=== PATIENT | male | born 1965 | race Hispanic/Latino ===

== ENCOUNTER 2019-08-23 05:44 | Emergency (ER) | payer OTHER ==
[2019-08-23 06:23] LABS: Protime INR 1.12
[2019-08-23 06:25] LABS: Absolute Lymphocytes (CBC) 1.8 K/uL (0.7-4.9); Basophils % 0.9 % (0-1.3); Hematocrit 36.1 % (39.6-49.0); Lymphocytes % 24.2 % (15.3-44.8); MPV 9.1 fL (7.6-11.3); RBC Red Blood Cell Count 3.61 M/uL (4.33-5.43)
[2019-08-23 06:57] LABS: ALT/SGPT 15 U/L (12-78); AST/SGOT 10 U/L (15-37); Albumin 3.2 g/dL (3.4-5.0); Alkaline Phosphatase 80 U/L (45-117); BUN Blood Urea Nitrogen 67 mg/dL (7-18); Bicarbonate 23 mmol/L (21-32); Bilirubin Direct 0.1 mg/dL (0-0.2); Bilirubin Total 0.4 mg/dL (0.2-1.0); Glucose Level 79 mg/dL (74-106); Magnesium 2.3 mg/dL (1.8-2.4); NT PRO-BNP 4719 pg/mL (<125); Potassium 3.9 mmol/L (3.5-5.1); Protein, Total 7.5 g/dL (6.4-8.2); Sodium Level 135 mmol/L (136-145); Troponin (Emerg Dept Use Only) < 0.02 ng/mL (0.0-0.045)
--- NOTE | 2019-08-23 08:59 | RAD REPORT ---
EXAM DESCRIPTION: RAD - Chest Single View - 08/23/2019 6:02 am CLINICAL HISTORY: Dialysis patient, shortness of breath COMPARISON: None. TECHNIQUE: AP portable chest image was obtained [id number] hours . FINDINGS: No focal lung parenchymal process. No significant failure or volume overload findings iden tifiable. Trachea is midline. Heart and vasculature are normal. No measurable pleural effusion and no pneumothorax. No acute bony abnormality seen. No acute aortic findings suspected. IMPRESSION: No acute cardiopulmonary process. No measurable failure or volume overload.
--- NOTE | 2019-08-23 09:32 | EKG ---
Test Date: 2019-08-23 Test Time: 06:02:20 Upper Cutter: AER MEASUREMENT RESULTS: Intervals: Rate: 64 MO: QRSD: 80 QT: 404 QTc: 416 [place]: P: MO: QRS: 42 T: 22 INTERPRETIVE STATEMENTS: Junctional rhythm Abnormal ECG No previous ECG available for comparison Electronically Signed On 08-23-19 09:31:42 FRONT DESK ASSOCIATE by Ty Martinez
--- NOTE | 2019-08-23 10:14 | ER ---
Nurse's Notes [facility] Name: Ben Otto Age: 54 yrs Sex: Male : 1965 Arrival Date: 08/23/2019 Time: 05:46 Bed 6 Private MD: Diagnosis: Chronic kidney disease (CKD) Presentation: 08/23 05:45 Presenting complaint: EMS states: we were called for a patient complaining not feeling rr5 well. He missed his dialysis for 1 week. 05:45 Transition of care: patient was not received from another setting of care. Onset of rr5 symptoms was August 16, 2019. Risk Assessment: Do you want to hurt yourself or someone else? Patient reports no desire to harm self or others. Initial Sepsis Screen: Does the patient meet any 2 criteria? No. Patient's initial sepsis screen is negative. Does the patient have a suspected source of infection? No. Patient's initial sepsis screen is negative. Care prior to arrival: None. 05:45 Method Of Arrival: EMS: [facility] rr5 05:45 Acuity: JEREMY 3 rr5 Historical: - Allergies: 05:52 No Known Allergies; rr5 - Home Meds: 05:52 Metoprolol Tartrate Oral [Active]; renvela [Active]; rr5 - PMHx: 05:52 CVA; Dialysis; M-W-F; chronic immune disease; rr5 - PSHx: 05:52 AV fistula left arm; rr5 - Immunization history:: Adult Immunizations up to date. - Social history:: Smoking status: Patient/guardian denies using tobacco, Patient/guardian denies using alcohol, street drugs. - Ebola Screening: : Patient negative for fever greater than or equal to 101.5 degrees Fahrenheit, and additional compatible Ebola Virus Disease symptoms Patient denies exposure to infectious person Patient denies travel to an Ebola-affected area in the 21 days before illness onset. Screenin:52 Abuse screen: Denies threats or abuse. Denies injuries from another. Nutritional rr5 screening: No deficits noted. Tuberculosis screening: No symptoms or risk factors identified. Fall Risk IV access (20 points). Total Chan Fall Scale indicates No Risk (0-24 pts). Assessment: 05:45 General: Appears in no apparent distress. comfortable, Behavior is calm, cooperative, rr5 appropriate for age, Reports not feeling well. 05:45 Pain: Denies pain. Neuro: Level of Consciousness is awake, alert, obeys commands, rr5 Oriented to person, place, time, situation, Appropriate for age Reports light headed. Cardiovascular: Capillary refill < 3 seconds Patient's skin is warm and dry. Dialysis shunt: in the left arm, with palpable thrill, with no erythema, with no edema, no bleeding noted. Respiratory: Reports shortness of breath Airway is patent Respiratory effort is even, unlabored, Respiratory pattern is regular, symmetrical. GI: No signs and/or symptoms were reported involving the gastrointestinal system. : No signs and/or symptoms were reported regarding the genitourinary system. EENT: No signs and/or symptoms were reported regarding the EENT system. Derm: Skin is intact, Skin temperature is warm. Musculoskeletal: Capillary refill < 3 seconds, paralyse left arm. with foot support left leg noted. 06:49 Reassessment: Patient appears in no apparent distress at this time. No changes from rr5 previously documented assessment. Patient is alert, oriented x 3, equal unlabored respirations, skin warm/dry/pink. 07:30 Reassessment: Patient appears in no apparent distress at this time. No changes from jl7 previously documented assessment. Patient and/or family updated on plan of care and expected duration. Pain level reassessed. Patient is alert, oriented x 3, equal unlabored respirations, skin warm/dry/pink. 08:30 Reassessment: Patient appears in no apparent distress at this time. No changes from jl7 previously documented assessment. Patient and/or family updated on plan of care and expected duration. Pain level reassessed. Patient is alert, oriented x 3, equal unlabored respirations, skin warm/dry/pink. 10:19 Reassessment: Pt will be discharged once dialysis is set up with [facility]. jl7 10:21 Reassessment: [facility] states they will get patient's dialysis ss set up within the next couple days. Patient and WILLI Andersen notified and states ok to dc home now. Pt verbalizes understanding of f/u/ dc instructions. Vital Signs: 05:45 BP 134 / 95; Pulse 67; Resp 19; Temp 97.8; Pulse Ox 99% ; Weight 99.79 kg; Height 5 ft. rr5 7 in. (170.18 cm); Pain 0/10; 06:49 BP 131 / 84; Pulse 58; Resp 17; Pulse Ox 98% ; rr5 07:00 BP 149 / 92; Pulse 55; Resp 16 S; Pulse Ox 99% on R/A; jl7 08:00 BP 123 / 82; Pulse 51; Resp 16 S; Pulse Ox 100% on R/A; jl7 09:00 BP 129 / 85; Pulse 58; Resp 16 S; Pulse Ox 100% on R/A; jl7 05:45 Body Mass Index 34.46 (99.79 kg, 170.18 cm) rr5 ED Course: 05:45 Arm band placed on. rr5 05:46 Patient arrived in ED. viridiana 05:47 Jeromy Billings, JOBY is Primary Nurse. rr5 05:48 Triage completed. rr5 05:53 Patient has correct armband on for positive identification. Placed in gown. Bed in low rr5 position. Call light in reach. Side rails up X2. Pulse ox on. NIBP on. 05:53 secured entrance monitor on. rr5 06:01 XRAY Chest (1 view) In Process Unspecified. EDMS 06:05 No provider procedures requiring assistance completed. Inserted saline lock: 20 gauge rr5 in right forearm, using aseptic technique. Blood collected. 06:09 Rich Rosado PA is PHCP. jr8 06:09 Freddy Alfred MD is Attending Physician. jr8 10:12 Gregorio Cyr MD is Referral Physician. jr8 10:33 IV discontinued, intact, bleeding controlled, No redness/swelling at site. Pressure jl7 dressing applied. Administered Medications: No medications were administered Outcome: 10:12 Discharge ordered by . jr8 10:33 Discharged to home ambulatory. jl7 10:33 Condition: stable 10:33 Discharge instructions given to patient, Instructed on discharge instructions, follow up and referral plans. Demonstrated understanding of instructions, follow-up care. 10:33 Patient left the ED. jl7 Signatures: Dispatcher [employer] EDMS Eliza Mccoy RN RN ss Roszak, Josh, PA PA jr8 Jimmy Durham RN RN jl7 Manisha Lopez RN RN ea Roque, Raymond, RN RN rr5
--- NOTE | 2019-08-23 10:15 | EDPHYS ---
Physician Documentation [facility] Name: Ben Otto Age: 54 yrs Sex: Male : 1965 Arrival Date: 08/23/2019 Time: 05:46 Bed 6 Private MD: ED Physician Freddy Alfred HPI: 08/23 06:33 This 54 yrs old Male presents to ER via EMS with complaints of Shortness Of Breath. jr8 06:33 The patient has shortness of breath at rest. Onset: The symptoms/episode began/occurred jr8 gradually, 2 day(s) ago. Duration: The symptoms are continuous. The patient's shortness of breath is aggravated by nothing, is alleviated by nothing. Associated signs and symptoms: The patient has no apparent associated signs or symptoms. Severity of symptoms: At their worst the symptoms were mild in the emergency department the symptoms are unchanged. It is unknown whether or not the patient has had similar symptoms in the past. Patient with history of ESRD. Stated that he recently moved to the area from [place]. Does not have PCP or grid maker established yet. Last dialysis over a week ago. Now starting to feel short of breath . Historical: - Allergies: 05:52 No Known Allergies; rr5 - Home Meds: 05:52 Metoprolol Tartrate Oral [Active]; renvela [Active]; rr5 - PMHx: 05:52 CVA; Dialysis; M-W-F; chronic immune disease; rr5 - PSHx: 05:52 AV fistula left arm; rr5 - Immunization history:: Adult Immunizations up to date. - Social history:: Smoking status: Patient/guardian denies using tobacco, Patient/guardian denies using alcohol, street drugs. - Ebola Screening: : Patient negative for fever greater than or equal to 101.5 degrees Fahrenheit, and additional compatible Ebola Virus Disease symptoms Patient denies exposure to infectious person Patient denies travel to an Ebola-affected area in the 21 days before illness onset. ROS: 06:33 Eyes: Negative for injury, pain, redness, and discharge, ENT: Negative for injury, jr8 pain, and discharge, Neck: Negative for injury, pain, and swelling, Cardiovascular: Negative for chest pain, palpitations, and edema, Abdomen/GI: Negative for abdominal pain, nausea, vomiting, diarrhea, and constipation, Back: Negative for injury and pain, MS/Extremity: Negative for injury and deformity, Skin: Negative for injury, rash, and discoloration, Neuro: Negative for headache, weakness, numbness, tingling, and seizure. 06:33 Respiratory: Positive for shortness of breath. Exam: 06:33 Eyes: Pupils equal round and reactive to light, extra-ocular motions intact. Lids and jr8 lashes normal. Conjunctiva and sclera are non-icteric and not injected. Cornea within normal limits. Periorbital areas with no swelling, redness, or edema. ENT: Nares patent. No nasal discharge, no septal abnormalities noted. Tympanic membranes are normal and external auditory canals are clear. Oropharynx with no redness, swelling, or masses, exudates, or evidence of obstruction, uvula midline. Mucous membranes moist. Neck: Trachea midline, no thyromegaly or masses palpated, and no cervical lymphadenopathy. Supple, full range of motion without nuchal rigidity, or vertebral point tenderness. No Meningismus. Respiratory: Lungs have equal breath sounds bilaterally, clear to auscultation and percussion. No rales, rhonchi or wheezes noted. No increased work of breathing, no retractions or nasal flaring. Abdomen/GI: Soft, non-tender, with normal bowel sounds. No distension or tympany. No guarding or rebound. No evidence of tenderness throughout. Back: No spinal tenderness. No costovertebral tenderness. Full range of motion. Skin: Warm, dry with normal turgor. Normal color with no rashes, no lesions, and no evidence of cellulitis. MS/ Extremity: Pulses equal, no cyanosis. Neurovascular intact. Full, normal range of motion. Neuro: Awake and alert, GCS 15, oriented to person, place, time, and situation. Cranial nerves II-XII grossly intact. Motor strength 5/5 in all extremities. Sensory grossly intact. Cerebellar exam normal. Normal gait. 06:33 Cardiovascular: Rate: normal, Rhythm: regular, Pulses: Pulses are 2+ in right radial artery and left radial artery. Heart sounds: normal, normal S1and S2, no S3 or S4, no murmur, no rub, no gallop, Edema: 2+ edema to level of left midcalf, left ankle, left foot, right midcalf, right ankle and right foot, JVD: is not appreciated. Vital Signs: 05:45 BP 134 / 95; Pulse 67; Resp 19; Temp 97.8; Pulse Ox 99% ; Weight 99.79 kg; Height 5 ft. rr5 7 in. (170.18 cm); Pain 0/10; 06:49 BP 131 / 84; Pulse 58; Resp 17; Pulse Ox 98% ; rr5 07:00 BP 149 / 92; Pulse 55; Resp 16 S; Pulse Ox 99% on R/A; jl7 08:00 BP 123 / 82; Pulse 51; Resp 16 S; Pulse Ox 100% on R/A; jl7 09:00 BP 129 / 85; Pulse 58; Resp 16 S; Pulse Ox 100% on R/A; jl7 05:45 Body Mass Index 34.46 (99.79 kg, 170.18 cm) rr5 MDM: 06:10 Patient medically screened. jr8 10:00 Data reviewed: vital signs, nurses notes, lab test result(s), EKG, radiologic studies, jr8 plain films, and as a result, I will discharge patient. Data interpreted: Pulse oximetry: on room air is 98 %. Interpretation: normal. Counseling: I had a detailed discussion with the patient and/or guardian regarding: the historical points, exam findings, and any diagnostic results supporting the discharge/admit diagnosis, lab results, radiology results, the need for outpatient follow up, nephrology , to return to the emergency department if symptoms worsen or persist or if there are any questions or concerns that arise at home. 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 Patient without acute findings today. Will send home now that dialysis has been arranged . 08/23 05:49 Order name: Basic Metabolic Panel; Complete Time: 07:02 tw4 08/23 05:49 Order name: CBC with Diff; Complete Time: 06:42 tw4 08/23 05:49 Order name: LFT's; Complete Time: 07:02 4 08/23 05:49 Order name: Magnesium; Complete Time: 07:02 tw4 08/23 05:49 Order name: NT PRO-BNP; Complete Time: 07:02 tw4 08/23 05:49 Order name: PT-INR; Complete Time: 06:42 tw4 08/23 05:49 Order name: Troponin (emerg Dept Use Only); Complete Time: 07:02 tw4 08/23 05:49 Order name: XRAY Chest (1 view); Complete Time: 09:28 tw4 08/23 05:49 Order name: EKG; Complete Time: 05:50 tw4 08/23 05:49 Order name: Cardiac monitoring; Complete Time: 05:53 tw4 08/23 05:49 Order name: EKG - Nurse/Tech; Complete Time: 06:06 tw4 08/23 05:49 Order name: IV Saline Lock; Complete Time: 06:06 tw4 08/23 05:49 Order name: Labs collected and sent; Complete Time: 06:06 tw4 08/23 07:56 Order name: Social Service Consult [facility] 08/23 05:49 Order name: O2 Per Protocol; Complete Time: 05:56 tw4 08/23 05:49 Order name: O2 Sat Monitoring; Complete Time: 05:56 tw4 Administered Medications: No medications were administered Disposition: 08/24 03:37 Co-signature as Attending Physician, Freddy Alfred MD I agree with the assessment and 4 plan of care. Disposition: 08/23/19 10:12 Discharged to Home. Impression: Chronic kidney disease (CKD). - Condition is Stable. - Discharge Instructions: Chronic Kidney Disease, Adult. - Medication Reconciliation Form, Thank You Letter, Antibiotic Education, Prescription Opioid Use form. - Follow up: Gregorio Cyr MD; When: 48 Hours; Reason: Recheck today's complaints, Continuance of care, Re-evaluation by your physician. - Problem is new. - Symptoms have improved. Signatures: Dispatcher [employer] [facility] Rich Rosado PA PA jr8 Jimmy Durham RN RN jl7 Freddy Alfred MD MD tw4 Jeromy Billings RN RN rr5 Corrections: (The following items were deleted from the chart) 08/23 10:33 10:12 08/23/2019 10:12 Discharged to Home. Impression: Chronic kidney disease (CKD). jl7 Condition is Stable. Forms are Medication Reconciliation Form, Thank You Letter, Antibiotic Education, Prescription Opioid Use. Follow up: Gregorio Cyr; When: 48 Hours; Reason: Recheck today's complaints, Continuance of care, Re-evaluation by your physician. Problem is new. Symptoms have improved. jr8
[2019-08-23 10:49] VITALS: TEMP 97.8
[2019-08-23 11:02] VITALS: O2SAT 100
[2019-08-23 11:04] VITALS: BP 129/85
== END 2019-08-23 10:33 | disposition home or self-care (01) ==
LOC: ER 05:44
DX: N18.6 End stage renal disease (principal); Z99.2 Dependence on renal dialysis; Z86.73 Personal history of transient ischemic attack (TIA), and cerebral infarction without residual deficits
CPT/HCPCS: 36415; 71045; 80048; 80076; 83735; 83880; 84484; 85025; 85610; 93005; 99284

== ENCOUNTER 2021-11-20 14:37 | Emergency (ER) | payer OTHER ==
--- OUTSIDE RECORDS SUMMARY | 2021-11-20 14:41 | XMS REPORT | Continuity of Care Document ---
:1965 Author Organization [facility] t Address [address] [place] [address] Dr. Mejia [address] [place] [address] Care Team Providers Name Role Phone DR Lauren MAY Attending Clinician Unavailable DR LICO Attending Clinician Unavailable DR Lauren MAY Admitting Clinician Unavailable DR LICO Admitting Clinician Unavailable Problems This patient has no known problems. Allergies, Adverse Reactions, Alerts This patient has no known allergies or adverse reactions. Medications This patient has no known medications. Procedures This patient has no known procedures. Encounters Start End Encounter Admission Attending Care Care Encounter Source Date/Time Date/Time Type Type Clinicians Facility Department ID 2019-08-19 2019-08-19 Emergency E [facility] FB [id number] FB 12:32:00 12:32:00 2019-08-11 2019-08-11 Emergency E ELIUD MAY [facility] [id number] [place] 07:59:00 09:20:00 [place] 2019-06-22 2019-06-22 Outpatient [facility] [id number] [facility] 07:20:00 07:20:00 2018-03-03 2018-03-04 Outpatient E LICO Janet TELE [id number] [place] 15:47:00 12:01:00 [facility] Results Test Description Test Time Test Comments Results Result Comments Source COMPREHENSIVE METABOLIC CHAVEZ 2019-08-11 08:55:00 Test Item Value Reference Range Interpretation Comme nts GLUCOSE (test code = 06D) 86 mg/dL 75-100 SODIUM (test code = 01A) 133 mmol/L 136-145 L POTASSIUM (test code = 01B) 3.9 mmol/L 3.6-5.1 CHLORIDE (test code = 04A) 95 mmol/L 98-107 L CO2 (test code = 02A) 23 mmol/L 22-32 ANION GAP (test code = ANG) 18.9 mmol/L BUN (test code = 05D) 59 mg/dL 7-18 H CREATININE (test code = 03E) 13.0 mg/dL 0.7-1.3 H BUN/CREA (test code = BCR) 5 12-20 L CALCIUM (test code = 09D) 8.6 mg/dL 8.3-9.5 BILI TOTAL (test code = 11A) 0.4 mg/dL 0.2-1.0 PROTEIN (test code = 07D) 8.6 g/dL 6.4-8.2 H ALBUMIN (test code = 08D) 3.6 g/dL 3.5-4.8 GLOBULIN (test code = GLB) 5.0 g/dL 1.5-3.8 H ALB/GLOB (test code = AGRR) 0.7 1.0-2.6 L ALK PHOS (test code = 35A) 89 IU/L 42-121 AST (test code = 30A) 7 IU/L <=42 ALT (test code = 31A) 15 IU/L <=78 [id number] 08:55:00 Test Item Value Reference Range Interpretation Comments MAGNESIUM (test code = 48A) 2.6 mg/dL 1.8-2.4 H PHOSPHORUS (P04)2019-08-11 08:55:00 Test Item Value Reference Range Interpretation Comments PHOSPHORUS (test code = 43D) 7.8 mg/dL 2.7-4.6 H BRAIN NATRIURETIC [id number] 08:55:00 Test Item Value Reference Range Interpretation Comments proBNP (test code = PBNP) 750 pg/mL 0-125 H TROPONIN [id number] 08:50:00 Test Item Value Reference Range Interpretation Comments TROPONIN I (test code = A84) <0.015 ng/mL 0.000-0.045 PRO TIME AND [id number] 08:43:00 Test Item Value Reference Range Interpretation Comments PT (test code = 13.9 s 9.8-13.6 H TT) INR (test code = 1.2 INR) INRH (test code = SUGGESTED INRH) THERAPEUTIC RANGE FOR INR: 2.5 - 3.5 For Patients with Prosthetic Valves or Patients with recurrent Thromboembolic Events 2.0 - 3.0 For Most Other Applications PTT (test code = 35.6 s 20.2-38.0 PTT) PTTH (test code = To monitor the PTTH) effectiveness of heparin, we offer the Anti-Xa (Heparin Assay). It can be used for either unfractionated or LMW Heparin. Order Code is ANTI-XA CT HEAD W/O [id number] 08:36:37CT brain without contrastLocation code: [id number] HISTORY: Dizziness COMPARISON: 03/03/18TECHNIQUE: Routine unenhanced axial imaging of the brain was performed. Coronal and sagittal reformatted images were obtained, as well. Automaticexposure control was utilized. Total DLP: 933 mGycm.FINDINGS: There is no acute intracranial hemorrhage or extra-axial collection.There is no hydrocephalus, midline shift, or space occupying mass. Mild deepwhite matter chronic microvascular changes are stable. Izaguirre-white matterdifferentiation is otherwise well preserved with no definite CT evidence of anacute infarct. The cranial vault and skull base are intact. The paranasal sinuses and mastoidair cells are pneumatized and well aerated. IMPRESSION: No acute intracranial abnormality or significant interval change.CBC (INCLUDES AUTOMATED DIFFERENTIAL)2019-08-11 08:29:00 Test Item Value Reference Range Interpretation Comments WBC (test code = WBC) 8.7 10\S\3/uL 4.5-11.0 RBC (test code = RBC) 4.12 10\S\6/uL 4.20-5.60 L HGB (test code = HBG) 13.6 g/dL 14.0-18.0 L HCT (test code = HCT) 40.2 % 35.0-46.0 MCV (test code = MCV) 97.6 fL 80.0-94.0 H MCH (test code = MCH) 33.0 pg 27.0-31.0 H MCHC (test code = MCHC) 33.8 g/dL 32.0-36.0 RDW (test code = RDW) 13.8 % 11.5-14.5 PLT (test code = PLT) 273 10\S\3/uL 130-400 MPV (test code = MPV) 10.0 fL 9.4-12.4 NEUTROP # (test code = NE#) 6.0 10\S\3/uL 2.0-8.0 LYMPH # (test code = LY#) 1.9 10\S\3/uL 1.2-4.0 MONOCYTE # (test code = MO#) 0.7 10\S\3/uL 0.0-1.1 EOSINOPH # (test code = EO#) 0.1 10\S\3/uL 0.0-0.7 BASOPHIL # (test code = BA#) 0.1 10\S\3/uL 0.0-0.3 IG # (test code = IG#) 0.05 10\S\3/uL 0.00-0.06 NRBC # (test code = NRBC#) 0.00 10\S\3/uL 0.00-0.01 NEUTROPH % (test code = NE%) 68.6 % 35.0-73.0 LYMPH % (test code = LY%) 21.6 % 20.0-55.0 MONO % (test code = MO%) 7.7 % 2.5-10.0 EOSINOPH % (test code = EO%) 0.9 % 0.0-5.0 BASOPHIL % (test code = BA%) 0.6 % 0.0-2.0 IG % (test code = IG%) 0.6 % 0.0-0.8 NRBC% (test code = NRBC%) 0.0 % 0.0-0.2 MANDIFF (test code = MDIFF) NO NO RBC MORPH (test code = RBCMOR) NORMAL XR CHEST 1 VIEW [id number] 08:28:57Portable AP chest, 1 viewLocation Code: [id number] HISTORY: DizzinessCOMPARISON: 03/03/18COMMENT: The lungs are clear and well inflated. The costophrenic angles are sharp. Thecardiomediastinal silhouette is unremarkable. The bones are intact.IMPRESSION: Stable chest with no acute abnormalityURINALYSIS WITH [id number] 06:31:00 Test Item Value Reference Range Interpretation Comments COLOR (test code = COLU) YELLOW YELLOW CLARITY (test code = CLA) CLEAR CLEAR GLUCOSE UR (test code = UA GLUCOSE) NEGATIVE NEGATIVE BILI UR (test code = BILE) NEGATIVE NEGATIVE KETONES UR (test code = JENN) NEGATIVE NEGATIVE SP GRAVITY (test code = SPGR) 1.011 1.005-1.030 PH UR (test code = PH) 7.0 4.5-8.0 PROTEIN UR (test code = PU) 2+ NEGATIVE A UROBIL UR (test code = UROQ) 0.2 EU/dL 0.2-1.0 NITRITE UR (test code = NITRITE) NEGATIVE NEGATIVE BLOOD UR (test code = UA BLOOD) 1+ NEGATIVE A LEUK ES UR (test code = LEUK) NEGATIVE NEGATIVE WBC UR (test code = UWBC) 0 /HPF 0-3 RBC UR (test code = URBC) 3 /HPF 0-2 H EPITH UR (test code = UEPC) FEW /LPF NONE A BACTERIA UR (test code = UBACT) NONE /HPF NONE CAST UR (test code = CAST) /LPF NONE CRYSTAL UR (test code = CRYU) / LPF NONE MUCUS UR (test code = MUC) / HPF NONE AMORPH UR (test code = HAI) / HPF NONE TRICH UR (test code = UTRICH) /HPF NONE YEAST UR (test code = UY) /HPF NONE SPERM UR (test code = USPERM) /HPF NONE BASIC METABOLIC [id number] 04:20:00 Test Item Value Reference Range Interpretation Comments GLUCOSE (test code = 06D) 98 mg/dL 75-100 SODIUM (test code = 01A) 136 mmol/L 136-145 POTASSIUM (test code = 01B) 4.3 mmol/L 3.6-5.1 CHLORIDE (test code = 04A) 104 mmol/L 98-107 CO2 (test code = 02A) 22 mmol/L 22-32 ANION GAP (test code = ANG) 14.3 mmol/L BUN (test code = 05D) 25 mg/dL 7-18 H CREATININE (test code = 03E) 5.6 mg/dL 0.7-1.3 H BUN/CREA (test code = BCR) 5 12-20 L CALCIUM (test code = 09D) 7.8 mg/dL 8.3-9.5 L CARDIAC [id number] 04:14:00 Test Item Value Reference Range Interpretation Comments TROPONIN I (test code = A84) <0.015 ng/mL 0.000-0.045 CKMB (test code = A49) <1.0 ng/mL <=3.6 CPK (test code = 32A) 44 IU/L 39-308 CBC (INCLUDES AUTOMATED DIFFERENTIAL)2018-03-04 04:04:00 Test Item Value Reference Range Interpretation Comments WBC (test code = WBC) 9.6 10\S\3/uL 4.5-11.0 RBC (test code = RBC) 3.70 10\S\6/uL 4.20-5.60 L HGB (test code = HBG) 11.8 g/dL 14.0-18.0 L HCT (test code = HCT) 37.5 % 35.0-46.0 MCV (test code = MCV) 101.4 fL 80.0-94.0 H MCH (test code = MCH) 31.9 pg 27.0-31.0 H MCHC (test code = MCHC) 31.5 g/dL 32.0-36.0 L RDW (test code = RDW) 13.0 % 11.5-14.5 PLT (test code = PLT) 213 10\S\3/uL 130-400 MPV (test code = MPV) 10.2 fL 9.4-12.4 NEUTROP # (test code = NE#) 7.4 10\S\3/uL 2.0-8.0 LYMPH # (test code = LY#) 1.1 10\S\3/uL 1.2-4.0 L MONOCYTE # (test code = MO#) 0.9 10\S\3/uL 0.0-1.1 EOSINOPH # (test code = EO#) 0.2 10\S\3/uL 0.0-0.7 BASOPHIL # (test code = BA#) 0.1 10\S\3/uL 0.0-0.3 IG # (test code = IG#) 0.02 10\S\3/uL 0.00-0.06 NRBC # (test code = NRBC#) 0.00 10\S\3/uL 0.00-0.01 NEUTROPH % (test code = NE%) 76.5 % 35.0-73.0 H LYMPH % (test code = LY%) 11.2 % 20.0-55.0 L MONO % (test code = MO%) 9.5 % 2.5-10.0 EOSINOPH % (test code = EO%) 2.0 % 0.0-5.0 BASOPHIL % (test code = BA%) 0.6 % 0.0-2.0 IG % (test code = IG%) 0.2 % 0.0-0.8 NRBC% (test code = NRBC%) 0.0 % 0.0-0.2 MANDIFF (test code = MDIFF) NO NO RBC MORPH (test code = RBCMOR) NORMAL CARDIAC [id number] 21:34:00 Test Item Value Reference Range Interpretation Comments TROPONIN I (test code = A84) <0.015 ng/mL 0.000-0.045 CKMB (test code = A49) 1.3 ng/mL <=3.6 CPK (test code = 32A) 50 IU/L 39-308 U/S CAROTID COLOR DOPPLER [id number] 21:13:04Examination: Bilateral carotid Doppler ultrasoundLocation code: [id number]: NoneTechnique:Clinical history is remarkable for dizziness, giddiness. Real-time sonographicgray scale, color Doppler, and spectral wave form analysis of the extracranialcarotid circulation is being performed.DISCUSSION:RIGHT CAROTID SYSTEM:Peak systolic velocity ICA 34.1 cm/sec, peak systolic velocity common carotidartery 74.2 cm/sec, ICA/CCA ratio 0.5Mild intimal hyperplasia of the common carotid artery is present, mini malplaque documented within the mid to distal common carotid, carotid bulb andproximal ICA. There isappropriate flow within the common carotid artery,carotid bulb, internal, and external carotid arteries. Flow is laminar and thevelocities are appropriate. Antegrade vertebral flow is documented.LEFT CAROTID SYSTEM:Peak systolic velocity ICA 46.6 cm/sec, peak systolic velocity common carotidartery 84.5 cm/sec, ICA/CCA ratio 0.6Minimal intimal hyperplasia of the common carotid artery is present withminimal distal common carotid plaque, minimal plaque localized at the carotidbulb. There is appropriateflow within the common carotid artery, carotid bulb,internal, and external carotid arteries. Flow islaminar and the velocities areappropriate. Antegrade vertebral flow is documented.Impression:1. Bilateral atherosclerotic changes are present, no hemodynamicallysignificant stenosis identified.CT HEAD W/O [id number] 14:56:12CT Brain without contrast.Location code:[id number] HISTORY: [id number]: Chest painComparison: NoneTechnique: Routine unenhanced CT brain was performed and submitted in 5mm axialimages. One or more of thefollowing dose reduction techniques were used:Automated exposure control, adjustment of the mA and or KV according to patientsize, and/or utilization of iterative reconstruction technique. DLP: 1038mGy-cm.Findings:There is no acute intracranial hemorrhage or extra-axial collection. There isno hydrocephalus, midline shift, or space occupying mass. Old moderate sized right thalamic infarct noted along with diffuse atrophy andprominent ventricular system appearing chronic in nature.There is generalizedvolume loss with compensatory enlargement of the corticalsulci and cerebral ventricles. Moderate periventricular low attenuation isconsistent with chronic small vessel ischemic changes. Izaguirre-white walt erdifferentiation is otherwise normal with no definite CT evidence of an acuteinfarct.The cranial vault and skull base are intact. The paranasal sinuses and mastoidair cells are well-aerated.IMPRESSION: Moderate chronic small vessel ischemic changes with otherwise no acuteintracranial abnormality. Oldright thalamic infarct.AMYLASE AND [id number] 14:42:00 Test Item Value Reference Range Interpretation Comments AMYLASE (test code = 10A) 68 U/L 28-100 LIPASE (test code = 60A) 130 IU/L 73-393 COMPREHENSIVE METABOLIC [id number] 14:42:00 Test Item Value Reference Range Interpretation Comments GLUCOSE (test code = 06D) 83 mg/dL 75-100 SODIUM (test code = 01A) 135 mmol/L 136-145 L POTASSIUM (test code = 01B) 3.9 mmol/L 3.6-5.1 CHLORIDE (test code = 04A) 100 mmol/L 98-107 CO2 (test code = 02A) 27 mmol/L 22-32 ANION GAP (test code = ANG) 11.9 mmol/L BUN (test code = 05D) 23 mg/dL 7-18 H CREATININE (test code = 03E) 4.9 mg/dL 0.7-1.3 H BUN/CREA (test code = BCR) 5 12-20 L CALCIUM (test code = 09D) 9.0 mg/dL 8.3-9.5 BILI TOTAL (test code = 11A) 0.3 mg/dL 0.2-1.0 PROTEIN (test code = 07D) 8.5 g/dL 6.4-8.2 H ALBUMIN (test code = 08D) 4.0 g/dL 3.5-4.8 GLOBULIN (test code = GLB) 4.5 g/dL 1.5-3.8 H ALB/GLOB (test code = AGRR) 0.9 1.0-2.6 L ALK PHOS (test code = 35A) 131 IU/L 42-121 H AST (test code = 30A) 17 IU/L <=42 ALT (test code = 31A) 23 IU/L <=78 PRO TIME AND [id number] 14:41:00 Test Item Value Reference Range Interpretation Comments PT (test code = 12.5 s 9.8-13.6 TT) INR (test code = 1.1 INR) INRH (test code = SUGGESTED INRH) THERAPEUTIC RANGE FOR INR: 2.5 - 3.5 For Patients with Prosthetic Valves or Patients with recurrent Thromboembolic Events 2.0 - 3.0 For Most Other Applications PTT (test code = 31.3 s 20.2-38.0 PTT) PTTH (test code = To monitor the PTTH) effectiveness of heparin, we offer the Anti-Xa (Heparin Assay). It can be used for either unfractionated or LMW Heparin. Order Code is ANTI-XA XR CHEST 1 VIEW [id number] 14:38:47EXAMINATION: XR CHEST 1 VIEW PORTABLE.LOCATION: D4.HISTORY: Chest pain, dizziness.COMPARISON: None.FI NDINGS:Examination is limited due to portable technique, patient body habitus and lowlung volumes.Cardiac silhouette/Mediastinal contour: Prominence of cardiac silhouette. Lungs: No focal consolidation. No large pleural effusion. Pulmonary vascularcongestion.Osseous Structures: Mild degenerative changes of thoracic spine.IMPRESSION: Limited study, pulmonary vascular congestion.DRUGS OF [id number] 14:36:00 Test Item Value Reference Range Interpretation Comments DRUG SCRN (test code URINE DRUG SCREEN = HDOA) This is an unconfirmed screening result and should not be used for non-medical purposes CANNABINOD (test code Negative NEGATIVE = 88C) AMPHETAMINE (test Negative NEGATIVE code = 84A) BENZODIAZP (test code Negative NEGATIVE = 86A) BARBITURAT (test code Negative NEGATIVE = 85A) OPIATES (test code = Negative NEGATIVE 92B) COCAINE (test code = Negative NEGATIVE 87A) PHENCYCLID (test code Negative NEGATIVE = 66A) METHADONE (test code Negative NEGATIVE = 64A) DOAH (test code = DOAH) *URINE DRUG SCREEN Cut-off values are as follows: Cannabinoids 50 ng/mL Cocaine 300 ng/mL Amphetamines 1000 ng/mL Phencyclidine 25 ng/mL Benzodiazepines 200 ng.mL Methadone 300 ng/mL Barbiturates 200 ng/mL Opiates 2000 ng/mL CBC (INCLUDES AUTOMATED DIFFERENTIAL)2018-03-03 14:29:00 Test Item Value Reference Range Interpretation Comments WBC (test code = WBC) 9.4 10\S\3/uL 4.5-11.0 RBC (test code = RBC) 4.40 10\S\6/uL 4.20-5.60 HGB (test code = HBG) 14.4 g/dL 14.0-18.0 HCT (test code = HCT) 42.7 % 35.0-46.0 MCV (test code = MCV) 97.0 fL 80.0-94.0 H MCH (test code = MCH) 32.7 pg 27.0-31.0 H MCHC (test code = MCHC) 33.7 g/dL 32.0-36.0 RDW (test code = RDW) 13.2 % 11.5-14.5 PLT (test code = PLT) 262 10\S\3/uL 130-400 MPV (test code = MPV) 10.9 fL 9.4-12.4 NEUTROP # (test code = NE#) 6.8 10\S\3/uL 2.0-8.0 LYMPH # (test code = LY#) 1.6 10\S\3/uL 1.2-4.0 MONOCYTE # (test code = MO#) 0.7 10\S\3/uL 0.0-1.1 EOSINOPH # (test code = EO#) 0.2 10\S\3/uL 0.0-0.7 BASOPHIL # (test code = BA#) 0.1 10\S\3/uL 0.0-0.3 IG # (test code = IG#) 0.04 10\S\3/uL 0.00-0.06 NRBC # (test code = NRBC#) 0.00 10\S\3/uL 0.00-0.01 NEUTROPH % (test code = NE%) 72.8 % 35.0-73.0 LYMPH % (test code = LY%) 16.9 % 20.0-55.0 L MONO % (test code = MO%) 7.3 % 2.5-10.0 EOSINOPH % (test code = EO%) 2.0 % 0.0-5.0 BASOPHIL % (test code = BA%) 0.6 % 0.0-2.0 IG % (test code = IG%) 0.4 % 0.0-0.8 NRBC% (test code = NRBC%) 0.0 % 0.0-0.2 MANDIFF (test code = MDIFF) NO NO RBC MORPH (test code = RBCMOR) NORMAL
[2021-11-20 15:20] LABS: Absolute Lymphocytes (CBC) 0.9 K/uL (0.7-4.9); Hematocrit 37.9 % (39.6-49.0); Lymphocytes % 13.8 % (15.3-44.8); MPV 7.6 fL (7.6-11.3); RBC Red Blood Cell Count 3.91 M/uL (4.33-5.43)
[2021-11-20 15:30] LABS: Protime INR 1.09
[2021-11-20 15:47] LABS: ALT/SGPT 12 U/L (12-78); AST/SGOT 8 U/L (15-37); Albumin 2.9 g/dL (3.4-5.0); Alkaline Phosphatase 73 U/L (45-117); BUN Blood Urea Nitrogen 19 mg/dL (7-18); Bicarbonate 28 mmol/L (21-32); Bilirubin Direct < 0.1 mg/dL (0-0.2); Bilirubin Total 0.3 mg/dL (0.2-1.0); Glucose Level 114 mg/dL (74-106); Magnesium 2.2 mg/dL (1.8-2.4); NT PRO-BNP 15023 pg/mL (<125); Potassium 3.6 mmol/L (3.5-5.1); Protein, Total 7.2 g/dL (6.4-8.2); Sodium Level 139 mmol/L (136-145)
[2021-11-20 15:49] LABS: T3 Free 1.76 pg/mL (2.18-3.98)
--- NOTE | 2021-11-20 15:49 | RAD REPORT ---
EXAM DESCRIPTION: RAD - Chest Single View - 11/20/2021 3:41 pm CLINICAL HISTORY: elevated heartrate;Chest pain COMPARISON: Portable July 2002 TECHNIQUE: AP portable chest image was obtained 11/20/2021 3:41 pm . FINDINGS: Lung volumes are significantly reduced compared to the prior study. This increases vascula ture and lung markings. No focal mass or consolidation. A mild edema or infiltrate could be masked in this setting. Heart and vasculature are normal. No measurable pleural effusion and no pneumothorax. No acute bony abnormality seen. No acute aortic findings suspected. IMPRESSION: Limited portable study without a focal lung parenchymal finding. Low lung volumes accentuate the vasculature and lung markings potentially masking mild edema or infil trate.
[2021-11-20] MEDS ORDERED: METOPROLOL TAR 25 MG TAB ONE (17:11)
--- NOTE | 2021-11-20 20:48 | ER ---
Nurse's Notes [facility] Name: Bne Otto Age: 56 yrs Sex: Male : 1965 Arrival Date: 11/20/2021 Time: 14:40 Bed 2 Private MD: Diagnosis: Chest pain, unspecified Presentation: 11/20 14:47 Chief complaint: EMS states: [facility] states that the pt was in dialysis. pt kd3 had about 5 mins left of dialysis before he went into a rapid heart rate. dialysis nurse stopped the dialysis. EMS arrived on the scene, pt was in SVT with hr over 200. vagal maneuvers where attempted by EMS but was not successful. when pt was transferred to the stretcher, pt suddenly converted to NSR with a hr in the 80's. pt told EMS and this nurse that he has had the feeling of his heart racing in the past and he would "just throw up and it would go away". Coronavirus screen: Vaccine status: Patient reports receiving the 2nd dose of the covid vaccine. Ebola Screen: No symptoms or risks identified at this time. Initial Sepsis Screen: Does the patient meet any 2 criteria? No. Patient's initial sepsis screen is negative. Does the patient have a suspected source of infection? No. Patient's initial sepsis screen is negative. 14:47 Method Of Arrival: EMS: [facility] kd3 14:56 Risk Assessment: Do you want to hurt yourself or someone else? Patient reports no kd3 desire to harm self or others. Onset of symptoms was November 20, 2021. 15:29 Acuity: JEREMY 2 ph Triage Assessment: 14:58 General: Appears in no apparent distress. Behavior is calm, cooperative, appropriate kd3 for age. Pain: Denies pain. Historical: - Allergies: 17:28 No Known Allergies; ph - Home Meds: 14:58 Metoprolol Tartrate Oral [Active]; renvela [Active]; kd3 - PMHx: 14:58 chronic immune disease; CVA; Dialysis; M-W-F; kd3 - Immunization history:: Adult Immunizations up to date. - Social history:: Smoking status: unknown. Screenin:01 Abuse screen: Denies threats or abuse. Denies injuries from another. Nutritional kd3 screening: No deficits noted. Tuberculosis screening: No symptoms or risk factors identified. Fall Risk IV access (20 points). Assessment: 15:30 General: Appears in no apparent distress. comfortable, Behavior is calm, cooperative, ph appropriate for age, Denies fever, feeling ill. Pain: Denies pain. Neuro: Level of Consciousness is awake, alert, obeys commands, Oriented to person, place, time, situation. Cardiovascular: Capillary refill < 3 seconds in bilateral fingers Patient's skin is warm and dry. Rhythm is sinus rhythm. Cardiovascular: Dialysis shunt: in the left bicep, with palpable thrill, with auscultated bruit, with no erythema, with no edema, no bleeding noted. Respiratory: Airway is patent Respiratory effort is even, unlabored, Respiratory pattern is regular, symmetrical, Denies shortness of breath. GI: No signs and/or symptoms were reported involving the gastrointestinal system. Derm: Skin is intact, is healthy with good turgor, Skin is pink, warm \\T\\ dry. Musculoskeletal: Circulation, motion, and sensation intact. Range of motion: intact in all extremities. 16:30 Reassessment: Patient appears in no apparent distress at this time. Patient and/or ph family updated on plan of care and expected duration. Pain level reassessed. Patient is alert, oriented x 3, equal unlabored respirations, skin warm/dry/pink. 17:00 Reassessment: Called [facility] pharmacy to try to obtain metoprolol dose, pharmacist ph states that pt has not had that medication filled in some time. Spoke w/ pt and he said that he "thinks the dose is 25 and I take it twice a day.". 19:25 Reassessment: Patient states feeling better. sm5 20:32 Reassessment: No changes from previously documented assessment. sm5 21:05 Reassessment: Patient and/or family updated on plan of care and expected duration. Pain sm5 level reassessed. Vital Signs: 14:56 Pulse 82; Resp 16; Pulse Ox 100% ; Weight 85.28 kg; Height 5 ft. 7 in. (170.18 cm); kd3 Pain 0/10; 15:15 BP 143 / 93; Pulse 82; Resp 16; Pulse Ox 100% on R/A; ph 15:45 BP 135 / 90; Pulse 81; Resp 16; Pulse Ox 100% on R/A; ph 16:15 BP 126 / 98; Pulse 73; Resp 18; Pulse Ox 100% on R/A; ph 16:42 BP 132 / 102; Pulse 70; Resp 14; Pulse Ox 100% on R/A; ph 18:32 BP 127 / 90; Pulse 63; Resp 18; Pulse Ox 100% on R/A; ph 19:45 BP 161 / 106; Pulse 68; Resp 20; Pulse Ox 100% on R/A; sm5 20:30 BP 144 / 83; Pulse 64; Resp 13; Pulse Ox 99% on R/A; sm5 14:56 Body Mass Index 29.44 (85.28 kg, 170.18 cm) kd3 ED Course: 14:40 Patient arrived in ED. ss 15:01 Arm band placed on left wrist. kd3 15:01 Patient has correct armband on for positive identification. Bed in low position. Call kd3 light in reach. Side rails up X2. 15:06 Initial lab(s) drawn, by me, sent to lab. Inserted saline lock: 22 gauge in left kj1 antecubital area, using aseptic technique. Blood collected. 15:06 EKG done, by ED staff. kj1 15:11 Manuel Nguyen PA is PHCP. cp 15:11 Bouchra Marks MD is Attending Physician. cp 15:29 Triage completed. ph 15:41 XRAY Chest (1 view) In Process Unspecified. EDMS 16:01 T3 Free Sent. ww 16:01 TSH Sent. ww 17:12 Cristal Judd, JOBY is Primary Nurse. ph 19:11 Troponin High Sensitivity Sent. ss 20:46 Han Bowens MD is Referral Physician. cp 21:06 No provider procedures requiring assistance completed. IV discontinued, intact, sm5 bleeding controlled, No redness/swelling at site. Pressure dressing applied. Administered Medications: 17:12 Drug: Metoprolol 25 mg Route: PO; ph Outcome: 20:47 Discharge ordered by . cp 21:07 Discharged to home ambulatory. 5 21:07 Condition: stable 21:07 Discharge instructions given to patient, Instructed on discharge instructions, follow up and referral plans. medication usage, Demonstrated understanding of instructions, follow-up care, medications, Prescriptions given X 1. 21:07 Patient left the ED. 5 Signatures: Dispatcher [facility] Eliza Mccoy, RN RN ss Cristal Judd, RN RN ph Manuel Nguyen PA PA cp Jackson, Kandis kj1 Machelle Simmons, RN RN kd3 Clarita Calero, RN RN sm5 Thalia Glover, RN RN ww
--- NOTE | 2021-11-20 20:49 | EDPHYS ---
Physician Documentation [facility] Name: Ben Otto Age: 56 yrs Sex: Male : 1965 Arrival Date: 11/20/2021 Time: 14:40 Bed 2 Private MD: ED Physician Bouchra Marks HPI: 11/20 15:10 This 56 yrs old Male presents to ER via EMS with complaints of Chest Pain. cp 15:10 The patient presents with a history of heart racing. cp 15:10 Context: The symptoms occur while completing dialysis this afternoon. Duration: The cp patient or guardian reports a single episode, that is now resolved. Associated signs and symptoms: Pertinent positives: chest pain, nausea. Patient reports intermittent episodes of chest pain that resolve with vomiting over past several weeks. EMS reports they were called to dialysis center and monitor showed SVT. EMS reports patient converted to NSR without any intervention. Historical: - Allergies: 17:28 No Known Allergies; ph - Home Meds: 14:58 Metoprolol Tartrate Oral [Active]; renvela [Active]; kd3 - PMHx: 14:58 chronic immune disease; CVA; Dialysis; M-W-F; kd3 - Immunization history:: Adult Immunizations up to date. - Social history:: Smoking status: unknown. ROS: 15:15 Constitutional: Negative for body aches, chills, fever, poor PO intake. cp 15:15 Eyes: Negative for injury, pain, redness, and discharge. cp 15:15 ENT: Negative for ear pain, sore throat, difficulty swallowing, difficulty handling secretions. 15:15 Cardiovascular: Positive for chest pain, palpitations. 15:15 Respiratory: Negative for cough, shortness of breath, wheezing. 15:15 Abdomen/GI: Negative for abdominal pain, nausea, vomiting, and diarrhea, constipation. 15:15 Neuro: Negative for altered mental status, dizziness, headache, syncope, weakness. 15:15 All other systems are negative. Exam: 15:00 ECG was reviewed by the Attending Physician. cp 15:20 Constitutional: The patient appears in no acute distress, alert, awake, cp non-diaphoretic, non-toxic, well developed, well nourished. 15:20 Head/Face: Normocephalic, atraumatic. cp 15:20 Eyes: Periorbital structures: appear normal, Pupils: equal, round, and reactive to light and accomodation, Extraocular movements: intact throughout, Sclera: no appreciated abnormality, Lids and lashes: appear normal, bilaterally. 15:20 ENT: External ear(s): are unremarkable, Nose: is normal, Mouth: Lips: moist, Oral mucosa: moist, Posterior pharynx: Airway: no evidence of obstruction, patent. 15:20 Neck: ROM/movement: is normal, is supple, without pain, no range of motions limitations. 15:20 Chest/axilla: Inspection: normal, Palpation: is normal, no crepitus, no tenderness. 15:20 Cardiovascular: Rate: normal, Rhythm: regular, JVD: is not appreciated. 15:20 Respiratory: the patient does not display signs of respiratory distress, Respirations: normal, no use of accessory muscles, no retractions, labored breathing, is not present, Breath sounds: bronchial sounds, that are mild, are heard diffusely, decreased breath sounds, are not appreciated. 15:20 Abdomen/GI: Inspection: abdomen appears normal, Palpation: abdomen is soft and non-tender, in all quadrants. 15:20 Back: pain, is absent, ROM is normal. 15:20 Neuro: Orientation: to person, place \T\ time. Mentation: is normal, Motor: moves all fours, strength is normal, Sensation: is normal. 19:35 ECG was reviewed by the Attending Physician. cp Vital Signs: 14:56 Pulse 82; Resp 16; Pulse Ox 100% ; Weight 85.28 kg; Height 5 ft. 7 in. (170.18 cm); kd3 Pain 0/10; 15:15 BP 143 / 93; Pulse 82; Resp 16; Pulse Ox 100% on R/A; ph 15:45 BP 135 / 90; Pulse 81; Resp 16; Pulse Ox 100% on R/A; ph 16:15 BP 126 / 98; Pulse 73; Resp 18; Pulse Ox 100% on R/A; ph 16:42 BP 132 / 102; Pulse 70; Resp 14; Pulse Ox 100% on R/A; ph 18:32 BP 127 / 90; Pulse 63; Resp 18; Pulse Ox 100% on R/A; ph 19:45 BP 161 / 106; Pulse 68; Resp 20; Pulse Ox 100% on R/A; sm5 20:30 BP 144 / 83; Pulse 64; Resp 13; Pulse Ox 99% on R/A; sm5 14:56 Body Mass Index 29.44 (85.28 kg, 170.18 cm) kd3 MDM: 15:21 Patient medically screened. cp 16:35 Physician consultation: Han Bowens MD was contacted at 16:29, regarding consult, cp patient's condition, and will see patient in office this \T\1300. Wants Metoprolol medication to be doubled and patient can be discharged to home for continued monitoring. 20:47 Data reviewed: vital signs, nurses notes, lab test result(s), EKG, radiologic studies, cp plain films. 20:47 Test interpretation: by ED physician or midlevel provider: ECG, plain radiologic cp studies. Counseling: I had a detailed discussion with the patient and/or guardian regarding: the historical points, exam findings, and any diagnostic results supporting the discharge/admit diagnosis, lab results, radiology results, the need for outpatient follow up, a clerical adviser, to return to the emergency department if symptoms worsen or persist or if there are any questions or concerns that arise at home. ED course: VSS. Initial and repeat troponin negative. Will discharge to home for continued monitoring. 11/20 15:05 Order name: Basic Metabolic Panel; Complete Time: 15:59 kj1 11/20 16:00 Interpretation: Normal except: GLUC 114; BUN 19; CA 8.2; CRE 5.34; GFR 11. cp 11/20 15:05 Order name: CBC with Diff; Complete Time: 15:59 kj1 11/20 16:00 Interpretation: Normal except: RBC 3.91; HGB 12.7; HCT 37.9; MARICRUZ% 78.5; LYM% 13.8. cp 11/20 15:05 Order name: LFT's; Complete Time: 15:59 kj1 11/20 16:16 Interpretation: Normal except: AST 8; ALB 2.9; GLOB 4.3; A/G 0.7. cp 11/20 15:05 Order name: Magnesium; Complete Time: 15:59 kj1 11/20 15:05 Order name: NT PRO-BNP; Complete Time: 15:59 kj1 11/20 15:05 Order name: PT-INR; Complete Time: 15:59 kj1 11/20 15:05 Order name: Troponin HS; Complete Time: 15:59 kj1 11/20 15:22 Order name: TSH cp 11/20 15:22 Order name: T3 Free cp 11/20 15:27 Order name: T3 Free; Complete Time: 15:59 EDMS 11/20 16:22 Interpretation: Reviewed. cp 11/20 15:27 Order name: Thyroid Stimulating Hormone; Complete Time: 15:59 EDMS 11/20 18:41 Order name: Troponin High Sensitivity cp 11/20 15:05 Order name: XRAY Chest (1 view); Complete Time: 15:59 kj1 11/20 16:00 Interpretation: Report review. cp 11/20 15:05 Order name: EKG; Complete Time: 15:06 kj11/20 15:05 Order name: Cardiac monitoring; Complete Time: 15:25 kj 11/20 15:05 Order name: EKG - Nurse/Tech; Complete Time: 15:05 [facility] 11/20 15:05 Order name: IV Saline Lock; Complete Time: 15:06 11/20 15:05 Order name: Labs collected and sent; Complete Time: 15:06 kj11/20 15:05 Order name: O2 Per Protocol; Complete Time: 15:06 [facility] 11/20 15:05 Order name: O2 Sat Monitoring; Complete Time: 17:12 11/20 16:29 Order name: Blood Pressure Recheck; Complete Time: 16:42 cp 11/20 18:41 Order name: EKG; Complete Time: 18:42 cp 11/20 18:41 Order name: EKG - Nurse/Tech; Complete Time: 20:52 cp EC:00 Rate is 83 beats/min. Rhythm is regular. CT interval is normal. QRS interval is normal. cp QT interval is normal. T waves are Inverted in lead aVR. Interpreted by me. Reviewed by me. 19:35 Rate is 66 beats/min. Rhythm is regular. CT interval is normal. QRS interval is normal. cp QT interval is normal. T waves are Inverted in lead aVR. Interpreted by me. Reviewed by me. Administered Medications: 17:12 Drug: Metoprolol 25 mg Route: PO; ph Disposition Summary: 11/20/21 20:47 Discharge Ordered Location: Home cp Problem: new cp Symptoms: have improved cp Condition: Stable cp Diagnosis - Chest pain, unspecified cp Followup: cp - With: Han Bowens MD - When: 11/22/2021 - Reason: Recheck today's complaints, recheck today's complaints at 1300 Discharge Instructions: - Discharge Summary Sheet cp - Nonspecific Chest Pain, Adult cp - Aspirin and Your Heart cp Forms: - Medication Reconciliation Form cp - Thank You Letter cp - Antibiotic Education cp - Prescription Opioid Use cp Prescriptions: - Metoprolol Tartrate 50 mg Oral Tablet - take 1 tablet by ORAL route 2 times per day take with meal; 60 tablet; Refills: cp 0, Product Selection Permitted Signatures: Dispatcher [employer] EDMS Cristal Judd RN RN ph Manuel Nguyen PA PA Rose Marie Sr kj1 Machelle Simmons RN RN kd3 Corrections: (The following items were deleted from the chart) 15:27 15:23 Thyroid Stimulating Hormone ordered. EDMS EDMS 15:27 15:23 T3 Free ordered. EDMS EDMS 20:48 20:47 Cardiac arrhythmia, unspecified cp cp
[2021-11-20 23:03] VITALS: BP 144/83; O2SAT 99
== END 2021-11-20 21:07 | disposition home or self-care (01) ==
LOC: ER 14:37
DX: R07.9 Chest pain, unspecified (principal); Z99.2 Dependence on renal dialysis; Z86.73 Personal history of transient ischemic attack (TIA), and cerebral infarction without residual deficits
CPT/HCPCS: 36415; 71045; 80048; 80076; 83735; 83880; 84443; 84481; 84484; 85025; 85610; 99285

== ENCOUNTER 2022-04-29 08:19 | Emergency (ER) | payer OTHER ==
[2022-04-29] MEDS ORDERED: DIAZEPAM 5 MG TABLET ONE (08:52)
[2022-04-29] MEDS ORDERED: KETOROLAC 30 MG/ML INJ ONE (08:52)
[2022-04-29 09:08] LABS: Urine Blood 3+ (Negative); Urine Glucose Negative (Negative); Urine Protein 2+ (Negative); Urine Specific Gravity 1.015 (1.005-1.030)
--- NOTE | 2022-04-29 09:35 | RAD REPORT ---
EXAM DESCRIPTION: CT - Stone Protocol - 04/29/2022 9:21 am CLINICAL HISTORY: Hematuria COMPARISON: None. TECHNIQUE: Computed axial tomography of the abdomen pelvis was obtained without oral or IV contrast. Lack of IV and oral contrast limits evaluation of solid organs, appendix, bowel, and vessels. Dieog l reformatted images were obtained and reviewed. All CT scans are performed using dose optimization technique as appropriate and may include automated exposure control or mA/KV adjustment according to patient size. FINDINGS: A renal calculus is not seen. An ureteral calculus is not noted. A bladder calculus is not present. Bilateral renal cortical thinning. Mild right hydronephrosis. Stranding adjacent to the rig ht renal pelvis and proximal right ureter. The visualized liver, spleen, pancreas and left adrenal gland appear grossly normal 17 millimeter left adrenal mass Diverticula stem from the colon without evidence of diverticulitis. Prostate gland mildly enlarged. Moderate bilateral inguinal hernias contain fat. The appendix appears normal IMPRESSION: Bilateral renal cortical thinning perhaps secondary to chronic renal disease. Mild right hydronephrosis with stranding adjacent to the right renal pelvis and proximal right ureter probably indicating inflammation. 17 millimeter left adrenal mass is nonspecific. It may represent an adenoma. Follow-up imaging in 3 m onths recommended to assess stability
--- NOTE | 2022-04-29 09:38 | RAD REPORT ---
EXAM DESCRIPTION: RAD - Lumbar Spine 3 Views - 04/29/2022 9:11 am CLINICAL HISTORY: Back pain FINDINGS: No fracture or dislocation is seen. Mild spondylosis involves the lumbar spine
[2022-04-29 10:50] VITALS: BP 138/81; TEMP 98.1; O2SAT 99
--- NOTE | 2022-05-01 09:22 | ER ---
Nurse's Notes [facility] Name: Ben Otto Age: 56 yrs Sex: Male : 1965 Arrival Date: 04/29/2022 Time: 08:27 Bed 18 Private MD: Diagnosis: Low back pain;UTI/ Urinary tract infection, site not specified Presentation: 04/29 08:27 Chief complaint: Patient states: I have had a pain in my back since yesterday and I bm7 feel like someone beat the shit out of me. Coronavirus screen: Vaccine status: Patient reports receiving the 2nd dose of the covid vaccine. Patient reports receiving the 1st dose of the Covid vaccine. Ebola Screen: No symptoms or risks identified at this time. Initial Sepsis Screen: Does the patient meet any 2 criteria? No. Patient's initial sepsis screen is negative. Does the patient have a suspected source of infection? No. Patient's initial sepsis screen is negative. Risk Assessment: Do you want to hurt yourself or someone else? Patient reports no desire to harm self or others. Onset of symptoms was April 28, 2022. Care prior to arrival: None. 08:27 Method Of Arrival: EMS: [facility] 08:27 Acuity: JEREMY 3 bm7 Triage Assessment: 08:39 General: Appears in no apparent distress. uncomfortable, well developed, Behavior is bm7 calm, cooperative, appropriate for age. Pain: Complains of pain in lumbar area, left low back and right low back Pain does not radiate. Pain currently is 10 out of 10 on a pain scale. EENT: No deficits noted. No signs and/or symptoms were reported regarding the EENT system. Neuro: Level of Consciousness is awake, alert, obeys commands, Oriented to person, place, time, situation, Fish Bin Tender are weak on left Gait is unsteady, Speech is normal. Cardiovascular: Dialysis shunt: in the left arm, with palpable thrill, with auscultated bruit, with no erythema, with no edema, no bleeding noted. Respiratory: No deficits noted. GI: No deficits noted. No signs and/or symptoms were reported involving the gastrointestinal system. : No deficits noted. No signs and/or symptoms were reported regarding the genitourinary system. Derm: No deficits noted. No signs and/or symptoms reported regarding the dermatologic system. Musculoskeletal: No deficits noted. No signs and/or symptoms reported regarding the musculoskeletal system. Historical: - Allergies: 08:39 SHELLFISH; bm7 - Home Meds: 08:39 Metoprolol Tartrate Oral [Active]; renvela [Active]; bm7 - PMHx: 08:39 CVA; Dialysis; M-W-F; End stage renal disease; bm7 - Immunization history:: Adult Immunizations up to date. - Social history:: Smoking status: Patient/guardian denies using tobacco products. Screenin:53 Abuse screen: Denies threats or abuse. Nutritional screening: No deficits noted. bm7 Tuberculosis screening: No symptoms or risk factors identified. Fall Risk Ambulatory Aid- Crutches/Cane/Walker (15 pts). Gait- Impaired (20 pts.). Assessment: 08:41 Reassessment: No changes from previously documented assessment. bm7 09:53 Reassessment: Patient and/or family updated on plan of care and expected duration. Pain bm7 level reassessed. Patient is alert, oriented x 3, equal unlabored respirations, skin warm/dry/pink. 10:02 Reassessment: PA at bedside to reassess. bm7 Vital Signs: 08:27 BP 160 / 100; Pulse 62; Resp 16; Temp 98.1(TE); Pulse Ox 99% on R/A; bm7 08:27 Weight 89.36 kg (R); Height 5 ft. 6 in. (167.64 cm); Pain 10/10; bm7 09:53 BP 159 / 104; Pulse 68; Resp 16; Pulse Ox 100% on R/A; Pain 0/10; bm7 10:38 BP 138 / 81; Pulse 60; Resp 16; Pulse Ox 99% on R/A; Pain 0/10; bm7 08:27 Body Mass Index 31.80 (89.36 kg, 167.64 cm) bm7 ED Course: 08:27 Patient arrived in ED. bm7 08:29 Guero Hargrove PA is PHCP. [facility] 08:29 John Fuller MD is Attending Physician. [facility] 08:29 Triage completed. bm7 08:36 Brina Roman, RN is Primary Nurse. bm7 08:39 Arm band placed on left wrist. bm7 08:53 No apparent distress. Resting quietly. Awaiting radiology results. bm7 08:53 Patient has correct armband on for positive identification. Placed in gown. Bed in low bm7 position. Call light in reach. Side rails up X 1. Client placed on continuous cardiac and pulse oximetry monitoring. NIBP monitoring applied. Warm blanket given. Head of bed lowered. 09:02 Patient moved to radiology. bm7 09:07 Assisted with urinal. bm7 09:07 Urine collected: clean catch specimen, cloudy. bm7 09:10 Lumbar Spine (3 Views) XRAY In Process Unspecified. EDMS 09:23 CT Stone Protocol In Process Unspecified. EDMS 09:26 Patient moved back from radiology. bm7 10:38 No provider procedures requiring assistance completed. Patient did not have IV access bm7 during this emergency room visit. Administered Medications: 08:48 Drug: Ketorolac 30 mg Route: IM; Site: left gluteus; bm7 09:54 Follow up: Response: Pain is decreased bm7 08:48 Drug: Valium (diazepam) 5 mg Route: PO; bm7 09:08 Follow up: Response: No adverse reaction bm7 Medication: 08:53 VIS not applicable for this client. bm7 Outcome: 10:28 Discharge ordered by . denis 10:38 Discharged to home ambulatory. bm7 10:38 Condition: improved 10:38 Discharge instructions given to patient, Instructed on discharge instructions, medication usage, Demonstrated understanding of instructions, medications, Prescriptions given X 1. 10:38 Patient left the ED. bm7 Signatures: Dispatcher [employer] EDGuero Lantigua PA PA jmm McCarthy, Brittany, RN RN bm7
--- NOTE | 2022-05-01 09:22 | EDPHYS ---
Physician Documentation [facility] Name: Ben Otto Age: 56 yrs Sex: Male : 1965 Arrival Date: 04/29/2022 Time: 08:27 Bed 18 Private MD: ED Physician John Fuller HPI: 04/29 10:25 This 56 yrs old Male presents to ER via EMS with complaints of Back pain. jmm 10:25 The patient presents with pain that is acute. Onset: The symptoms/episode jmm began/occurred gradually. The pain does not radiate. Associated signs and symptoms: Pertinent negatives: abdominal pain, fever. Is a 56-year-old male with a history of end-stage renal disease the presents emerged department with complaints of lower back pain which does not radiate. Patient does receive dialysis. Denies fever, vomiting, abdominal pain. Patient does have concerns he may have a kidney stone.. Historical: - Allergies: 08:39 SHELLFISH; bm7 - Home Meds: 08:39 Metoprolol Tartrate Oral [Active]; renvela [Active]; bm7 - PMHx: 08:39 CVA; Dialysis; M-W-F; End stage renal disease; bm7 - Immunization history:: Adult Immunizations up to date. - Social history:: Smoking status: Patient/guardian denies using tobacco products. ROS: 10:25 Constitutional: Negative for fever, chills, and weight loss, Cardiovascular: Negative jmm for chest pain, palpitations, and edema, Respiratory: Negative for shortness of breath, cough, wheezing, and pleuritic chest pain. 10:25 Back: Positive for pain with movement. 10:25 All other systems are negative. Exam: 10:25 Constitutional: This is a well developed, well nourished patient who is awake, alert, jmm and in no acute distress. Head/Face: atraumatic. Eyes: EOMI, no conjunctival erythema appreciated ENT: Moist Mucus Membranes Neck: Trachea midline, Supple Chest/axilla: Normal chest wall appearance and motion. Cardiovascular: Regular rate and rhythm. No edema appreciated Respiratory: Normal respirations, no respiratory distress appreciated Abdomen/GI: Non distended 10:25 Back: Lower lumbar pain on palpation, no CVA tenderness appreciated. 10:25 Musculoskeletal/extremity: ROM: intact in all extremities. 10:25 Neuro: Orientation: is normal, Mentation: is normal, Memory: is normal. 10:25 Psych: Behavior/mood is pleasant, cooperative. Vital Signs: 08:27 BP 160 / 100; Pulse 62; Resp 16; Temp 98.1(TE); Pulse Ox 99% on R/A; 7 08:27 Weight 89.36 kg (R); Height 5 ft. 6 in. (167.64 cm); Pain 10/10; bm7 09:53 BP 159 / 104; Pulse 68; Resp 16; Pulse Ox 100% on R/A; Pain 0/10; 7 10:38 BP 138 / 81; Pulse 60; Resp 16; Pulse Ox 99% on R/A; Pain 0/10; 7 08:27 Body Mass Index 31.80 (89.36 kg, 167.64 cm) 7 MDM: 08:30 Patient medically screened. [facility] 10:27 Data reviewed: vital signs, nurses notes. Counseling: I had a detailed discussion with [facility] the patient and/or guardian regarding: the historical points, exam findings, and any diagnostic results supporting the discharge/admit diagnosis, radiology results, the need for outpatient follow up, to return to the emergency department if symptoms worsen or persist or if there are any questions or concerns that arise at home. ED course: Labs and imaging studies were discussed with the patient along with the need for further evaluation due to the mass noted on the CT. Patient will be treated with oral antibiotics and advised follow-up PCP and otherwise given strict return precautions. Patient understood agrees plan of care.. 04/29 09:08 Order name: Urine Dipstick-Ancillary; Complete Time: 09:11 [facility] 04/29 08:30 Order name: Lumbar Spine (3 Views) XRAY; Complete Time: 09:38 [facility] 04/29 08:30 Order name: Urine Dipstick-Ancillary (obtain specimen); Complete Time: 09:07 [facility] 04/29 09:12 Order name: CT Stone Protocol; Complete Time: 09:38 [facility] Administered Medications: 08:48 Drug: Ketorolac 30 mg Route: IM; Site: left gluteus; 7 09:54 Follow up: Response: Pain is decreased 7 08:48 Drug: Valium (diazepam) 5 mg Route: PO; bm7 09:08 Follow up: Response: No adverse reaction bm7 Disposition: 16:15 Co-signature as Attending Physician, John Fuller MD. rn Disposition Summary: 04/29/22 10:28 Discharge Ordered Location: Home [facility] Condition: Stable [facility] Diagnosis - Low back pain jmm - UTI/ Urinary tract infection, site not specified [facility] Followup: [facility] - With: Private Physician - When: 2 - 3 days - Reason: Recheck today's complaints, Continuance of care, Re-evaluation by your physician Discharge Instructions: - Discharge Summary Sheet [facility] - Urinary Tract Infection, Adult [facility] Forms: - Medication Reconciliation Form [facility] - Thank You Letter [facility] - Antibiotic Education [facility] - Prescription Opioid Use [facility] Prescriptions: - Cephalexin 500 mg Oral Capsule - take 1 capsule by ORAL route every 8 hours for 10 days; 30 capsule; Refills: 0, jmm Product Selection Permitted Signatures: Dispatcher [employer] Guero Umanzor PA PA [facility] John Fuller MD MD rn McCarthy, Brittany, JOBY RN 7
== END 2022-04-29 10:38 | disposition home or self-care (01) ==
LOC: ER 08:19
DX: N39.0 Urinary tract infection, site not specified (principal); N18.6 End stage renal disease; Z99.2 Dependence on renal dialysis; Z91.013 Allergy to seafood
CPT/HCPCS: 72100; 74176; 76377; 81003; 96372; 99284

== ENCOUNTER 2022-07-24 13:04 | Emergency (ER) | payer OTHER ==
--- OUTSIDE RECORDS SUMMARY | 2022-07-24 13:26 | XMS REPORT | Continuity of Care Document ---
:[address] [facility] t Address [address] [place] [address] Dr. Perez. [address] [place] [id number] Care Team Providers Name Role Phone Pcp, Patient Does Not Have A Primary Care Physician [id number] ZULLY CHANG Attending Clinician Unavailable Zully Chang MD Attending Clinician Elidia Kat MD Attending Clinician [phone] Vtc-Lab Attending Clinician Unavailable Hvac Specialist, Transplant Attending Clinician Unavailable OWEN STONE Attending Clinician Unavailable Worker, Transplant Social Attending Clinician Unavailable Owen Stone MD Attending Clinician Renal, Transplant Class Attending Clinician Unavailable DR ELIUD MAY Attending Clinician Unavailable DR PAUL BARFIELD Attending Clinician Unavailable DR ELIUD MAY Admitting Clinician Unavailable DR PAUL BARFIELD Admitting Clinician Unavailable Payers Payer Name Policy Type Policy Number Effective Date Expiration Date S isidro LEWIS PLS [id number] 2018 00:00:00 HMO Problems Condition Condition Condition Status Onset Resolution Last Treating Co mments Source Name Details Category Date Date Treatment Clinician Date No known No known Disease Unive rs active active ity of problems problems [facility] Allergies, Adverse Reactions, Alerts Allergy Allergy Status Severity Reaction(s) Onset Inactive Treating Comm ents Source Name Type Date Date Clinician Martín Fallon Active Rash No Univer s h ty to 6-29 allergy ity of Derived adverse 00:00: to iodine [place] reaction 00 per Medical s patient Branch Social History Social Habit Start Date Stop Date Quantity Comments Source Exposure to 2022-03-17 2022-03-27 Not sure [facility] SARS-CoV-2 (event) 00:00:00 08:21:00 Medica l Branch Sex Ass[birth year] [facility] y of [place] 00:00:00 00:00:00 Medical Branch Smoking Status Start Date Stop Date Source Tobacco smoking consumption [facility] Medical unknown Branch Medications Ordered Filled Start Stop Current Ordering Indication Dosage Frequency Signature Comments Components Source Medication Medication Date Date Medication? Clinician (SIG) Name Name sevelamer Yes 800mg Take 800 Uni vers carbonate 6-29 mg by ity of (RENVELA 09:45: mouth. [place] ORAL) 34 Medical Branch metoprolol Yes Take by [facility] ers succinate 6-29 mouth. ity of 25 mg CSpX 09:45: [place] 34 Medical Branch Procedures This patient has no known procedures. Encounters Start End Encounter Admission Attending Care Care Encounter Source Date/Time Date/Time Type Type Clinicians Facility Department ID 2022-04-19 2022-04-19 Outpatient R [facility] [id number] [facility] 09:00:00 09:00:[address] o f [facility] 2022-04-10 2022-04-10 Telephone [facility] [id number] Univers 00:00:00 00:00:00 Zully Bojorquez MULTISPEC 350.1.13.10 ity of IALTY 4.2.7.2.686 [facility] [id number] [facility] [address] [facility] 2022-04-10 2022-04-10 Telephone [facility] [id number] Univers 00:00:00 00:00:00 Zully Bojorquez MULTISPEC 350.1.13.10 ity of IALTY 4.2.7.2.686 [facility] [id number] [facility] [address] [facility] 2022-04-08 2022-04-08 Committee Luciano [facility] [id number] Univers 00:00:00 00:00:00 Review Elidia alegre MULTISPEC 350.1.13.10 ity of IALTY 4.2.7.2.686 [facility] [id number] [facility] 2022-03-27 2022-03-27 [employer] Vtc-Lab [facility] [id number] Univers 13:00:00 13:15:00 Visit Zully Chang MULTISPEC 350.1.13 .10 ity of IALTY 4.2.7.2.[address] [place] [id number] [facility] 2022-03-27 2022-03-27 Outpatient R CHARLENE [facility] [id number] Univers 13:00:00 13:00:[address] [facility] 2022-03-27 2022-03-27 Hvac Specialist Hvac Specialist, Transplant [facility] 1. 2.840.114 [id number] [facility] 12:00:00 12:00:00 Visit Zully Chang MULTISPEC 350.1.13 .10 ity of IALTY 4.2.7.2.[address] [place] [id number] [facility] 2022-03-27 2022-03-27 Outpatient R OWEN STONE [facility] [id number] Univers 11:00:00 11:58:[address] [facility] 2022-03-27 2022-03-27 [place] Digger, Transplant Social [facility] 1.2.840.114 [id number] Univers 11:00:00 11:58:21 Management Zully Chang MULTISPEC 350.1 .13.10 ity of IALTY 4.2.7.2.686 [facility] [id number] [facility] 2022-03-27 2022-03-27 [facility] [id number] [facility] 10:00:00 11:58:04 Visit Zully Chang MULTISPEC 350.1.13 .10 ity of IALTY 4.2.7.2.686 [facility] [id number] [facility] YANEZ [address] [facility] 2022-03-27 2022-03-27 Nurse Renal, Transplant Class [facility] 1. 2.840.114 [id number] [facility] 08:30:00 09:15:00 [facility]13 .10 ity of IALTY 4.2.7.2.686 [facility] [id number] [facility] [address] [facility] 2019-08-19 2019-08-19 Emergency E [facility] [id number] [facility] 12:32:00 12:32:00 2019-08-11 2019-08-11 Emergency E ELIUD MAY [facility] [id number] [place] 07:59:00 09:20:00 Medica l [place] 2019-06-22 2019-06-22 [id number] 07:20:00 07:20:00 2019-05-26 2019-05-26 Outpatient MHIE MHIE [id number] [facility] 15:00:00 15:00:00 08 [facility] 2018-08-26 2018-08-26 Outpatient MHIE MHIE [id number] [facility] 11:30:00 11:30:00 07 gayle [place] 2018-08-25 2018-08-25 Outpatient MHIE MHIE [id number] [facility] 14:00:00 14:00:00 06 [place] 2018-04-14 2018-04-14 Outpatient MHIE MHIE [id number] [facility] 10:00:00 10:00:00 05 [place] 2018-03-03 2018-03-04 Outpatient E LICO [facility] TELE [id number] [place] 15:47:00 12:01:00 PAUL Medic al [place] 2018-02-25 2018-02-25 Outpatient MHIE MHIE [id number] [facility] 14:30:00 14:30:00 04 gayle [place] 2017-09-01 2017-09-01 Outpatient MHIE MHIE [id number] [facility] 09:15:00 09:15:00 03 gayle Barr 2017-05-07 2017-05-07 Outpatient MHIE MHIE [id number] [facility] 10:30:00 10:30:00 02 gayle [place] 2017-04-25 2017-04-25 Outpatient LUISITO JORGE [id number] [facility] 14:45:00 14:45:00 01 gayle [place] 2017-03-07 2017-03-07 Outpatient LUISITO JORGE [id number] [facility] 10:30:00 10:30:00 00 gayle Momo Results Test Description Test Time Test Comments Results Result Comments Source BRAIN NATRIURETIC PROTEIN 2019-08-11 08:55:00 Test Item Value Reference Range Interpretation Comme nts proBNP (test code = PBNP) 750 pg/mL 0-125 H COMPREHENSIVE METABOLIC [id number] 08:55:00 Test Item Value Reference Range Interpretation Comments GLUCOSE (test code = 06D) 86 mg/dL [...] (test code = 31A) 15 IU/L <=78 [id number] 08:55:00 Test Item Value Reference Range Interpretation Comments MAGNESIUM (test code = 48A) 2.6 mg/dL 1.8-2.4 H PHOSPHORUS (P04)2019-08-11 08:55:00 Test Item Value Reference Range Interpretation Comments PHOSPHORUS (test code = 43D) 7.8 mg/dL 2.7-4.6 H TROPONIN [id number] 08:50:00 Test Item Value Reference Range Interpretation Comments TROPONIN I (test code = A84) <0.015 ng/mL 0.000-0.045 PRO TIME AND [id number] 08:43:00 Test Item Value Reference Range Interpretation Comments PT (test code = 13.9 s 9.8-13.6 H TT) INR (test code = 1.2 INR) INRH (test code = SUGGESTED THERAPEUTIC INRH) RANGE FOR INR: 2.5 - 3.5 For [...] Order Code is ANTI-XA CT HEAD W/O [id number] 08:36:37CT brain without contrastLocation code: [id number] HISTORY: Dizziness COMPARISON: 03/03/18TECHNIQUE:Routine unenhanced axial imaging of the brain was performed. Coronal and sagittal reformatted imageswere obtained, as well. Automaticexposure control was utilized. Total DLP: 933 mGycm.FINDINGS: Thereis no acute intracranial hemorrhage or extra-axial collection.There is no hydrocephalus, midline shift, or space occupying mass. Mild deepwhite matter chronic microvascular changes are stable. Izaguirre-white matterdifferentiation is otherwise well preserved with no definite CT evidence of anacute infarct.The cranial vault and skull base are intact. [...] = RBCMOR) NORMAL XR CHEST 1 VIEW [id number] 08:28:57Portable AP chest, 1 viewLocation Code: [id number] HISTORY: DizzinessCOMPARISON: 03/03/18COMMENT: The lungs are clear and well inflated. The costophrenic angles are sharp. Thecardiomediastinal silhouette is unremarkable. The bones are intact.IMPRESSION: Stable chest with no acute abnormalityURINALYSIS WITH [id number] 06:31:00 Test Item Value Reference Range Interpretation [...] code = USPERM) /HPF NONE BASIC METABOLIC [id number] 04:20:00 Test Item Value Reference Range Interpretation [...] = 09D) 7.8 mg/dL 8.3-9.5 L CARDIAC [id number] 04:14:00 Test Item Value Reference Range Interpretation [...] MORPH (test code = RBCMOR) NORMAL CARDIAC [id number] 21:34:00 Test Item Value Reference Range Interpretation Comments TROPONIN I (test code = A84) <0.015 ng/mL 0.000-0.045 CKMB (test code = A49) 1.3 ng/mL <=3.6 CPK (test code = 32A) 50 IU/L 39-308 U/S CAROTID COLOR DOPPLER [id number] 21:13:04Examination: Bilateral carotid Doppler ultrasoundLocation code: S5Okwxfhthli: NoneTechnique:Clinicalhistory is remarkable for dizziness, giddiness. Real-time sonographicgray scale, color Doppler, and spectral wave form analysis of the extracranialcarotid circulation is being performed.DISCUSSION:RIGHT CAROTID SYSTEM:Peak systolic velocity ICA 34.1 cm/sec, peak systolic velocity common carotidartery 74.2 cm/sec, ICA/CCA ratio 0.5Mild intimal hyperplasia of the common carotid artery is present, minimalplaque documented within the mid to distal common carotid, carotid bulb andproximal ICA. There is appropriate flow within the common carotid artery,carotid bulb, internal, and external carotid arteries. Flow is laminar and thevelocities are appropriate. Antegrade vertebral flow is documented.LEFT CAROTID SYSTEM:Peak systolic velocity ICA 46.6 cm/sec, peak systolic velocity common carotidartery 84.5 cm/sec, ICA/CCA ratio 0.6Minimal intimal hyperplasia of the common carotid artery is present withminimal distal common carotid plaque, minimal plaque localized at the carotidbulb. There is appropriate flow within the common carotid artery, carotid bulb,internal, and external carotid arteries. Flow is laminar and the velocities areappropriate. Antegrade vertebral flow is documented.Impression:1. Bilateral atherosclerotic changes are present, no hemodynamicallysignificant stenosis identified.CT HEAD W/O [id number] 14:56:12CT Brain without contrast.Location code:[id number] HISTORY: [id number]: Chest painComparison: NoneTechnique: Routine unenhanced CT brain [...] with chronic small vessel ischemic changes. Izaguirre-white matte rdifferentiation is otherwise normal with no definite CT evidence of an acuteinfarct.The cranial vault and skull base are intact. The paranasal sinuses and mastoidair cells are well-aerated.IMPRESSION:Moderate chronic small vessel ischemic changes with otherwise no acuteintracranial abnormality. Old right thalamic infarct.AMYLASE AND [id number] 14:42:00 Test Item Value Reference Range Interpretation Comments AMYLASE (test code = 10A) 68 U/L 28-100 LIPASE (test code = 60A) 130 IU/L 73-393 COMPREHENSIVE METABOLIC [id number] 14:42:00 Test Item Value Reference Range Interpretation [...] 31A) 23 IU/L <=78 PRO TIME AND [id number] 14:41:00 Test Item Value Reference Range Interpretation Comments PT (test code = 12.5 s 9.8-13.6 TT) INR (test code = 1.1 INR) INRH (test code = SUGGESTED THERAPEUTIC INRH) RANGE FOR INR: 2.5 - 3.5 For [...] Code is ANTI-XA XR CHEST 1 VIEW [id number] 14:38:47EXAMINATION: XR CHEST 1 VIEW PORTABLE.LOCATION: D4.HISTORY: Chest pain, dizziness.COMPARISON: None.FI NDINGS:Examination is limited due to portable technique, patient body habitus and lowlung volumes.Cardiac silhouette/Mediastinal contour: Prominence of cardiac silhouette. Lungs: No focal consolidation. No large pleural effusion. Pulmonary vascularcongestion.Osseous Structures: Mild degenerative changes of thoracic spine.IMPRESSION: Limited study, pulmonary vascular congestion.DRUGS OF [id number] 14:36:00 Test Item Value Reference Range Interpretation [...]
[2022-07-24 13:35] LABS: Absolute Lymphocytes (CBC) 1.5 K/uL (0.7-4.9); Hematocrit 44.6 % (39.6-49.0); Lymphocytes % 23.2 % (15.3-44.8); MCV 98.2 fL (80-100); MPV 8.1 fL (7.6-11.3); RBC Red Blood Cell Count 4.54 M/uL (4.33-5.43)
[2022-07-24 13:36] LABS: Protime INR 1.11
--- NOTE | 2022-07-24 14:06 | RAD REPORT ---
EXAM DESCRIPTION: RAD - Chest Single View - 07/24/2022 1:56 pm CLINICAL HISTORY: PALPITATIONS COMPARISON: Portable 11/20/2021 TECHNIQUE: AP portable chest image was obtained 07/24/2022 1:56 pm . FINDINGS: No peripheral mass consolidation. Interstitial pattern is prominent but not clearly differ ent from prior imaging. Heart and vasculature are normal. No measurable pleural effusion and no pneum othorax. No acute bony abnormality seen. No acute aortic findings suspected. IMPRESSION: No acute cardiopulmonary process. Prominent interstitial pattern matches comparison.
[2022-07-24 15:17] LABS: Magnesium 2.3 mg/dL (1.8-2.4); Potassium 3.7 mmol/L (3.5-5.1); Troponin High Sensitivity 9.1 pg/mL (<58.9)
--- NOTE | 2022-07-24 16:19 | EDPHYS ---
Physician Documentation [facility] Name: Ben Otto Age: 57 yrs Sex: Male : 1965 Arrival Date: 07/24/2022 Time: 13:07 Bed 2 Private MD: ED Physician Jaxson Alba HPI: 07/24 13:24 This 57 yrs old Male presents to ER via EMS with complaints of elevated heart pm1 rate. 13:24 The patient presents with a history of Elevated heart rate. Context: The symptoms occur pm1 while patient was sitting in his dialysis chair eating a snickers bar. Patient did not feel the palpations and has no complaints. Onset: The symptoms/episode began/occurred today, while having dialysis treatment. Patient was able to get two hours of dialysis. Duration: The patient or guardian reports a single episode, that is now resolved, resolved on arrival per EMS, heart rate in the 80s. Patient without any rhythm strips or EKG of tachycardia from dialysis. Modifying factors: The symptoms are aggravated by nothing. The symptoms are alleviated by nothing. Associated signs and symptoms: The patient has no apparent associated signs or symptoms, Pertinent negatives: chest pain, nausea, SOB, vomiting. Severity of symptoms: in the emergency department the symptoms have resolved Pain is currently a 0 / 10. The patient has not experienced similar symptoms in the past. Historical: - Allergies: 13:11 SHELLFISH; mb8 - PMHx: 13:11 chronic immune disease; CVA; Dialysis; M-W-F; End stage renal disease; mb8 - Social history:: Smoking status: Patient denies any tobacco usage or history of. ROS: 13:24 Constitutional: Negative for fever, chills, and weight loss. pm1 13:24 Respiratory: Negative for shortness of breath, cough, wheezing, and pleuritic chest pain, Abdomen/GI: Negative for abdominal pain, nausea, vomiting, diarrhea, and constipation, Back: Negative for injury and pain, MS/Extremity: Negative for injury and deformity, Skin: Negative for injury, rash, and discoloration, Neuro: Negative for headache, weakness, numbness, tingling, and seizure. 13:24 Cardiovascular: Positive for elevated heart rate, Negative for chest pain, edema. 13:24 All other systems are negative. Exam: 13:24 Constitutional: This is a well developed, well nourished patient who is awake, alert, pm1 and in no acute distress. Head/Face: Normocephalic, atraumatic. Chest/axilla: Normal chest wall appearance and motion. Nontender with no deformity. No lesions are appreciated. 13:24 Back: No spinal tenderness. No costovertebral tenderness. Full range of motion. Skin: Warm, dry with normal turgor. Normal color with no rashes, no lesions, and no evidence of cellulitis. MS/ Extremity: Pulses equal, no cyanosis. Neurovascular intact. Full, normal range of motion. 13:24 Cardiovascular: Exam negative for acute changes, Rate: normal, Rhythm: regular, Pulses: no pulse deficits are appreciated, Heart sounds: normal, normal S1and S2. 13:24 Respiratory: Exam negative for acute changes, respiratory distress, shortness of breath, Breath sounds: are clear throughout. 13:24 Neuro: Exam negative for acute changes, Orientation: is normal, Mentation: is normal, Motor: is normal, moves all fours. Vital Signs: 13:09 BP 126 / 98; Pulse 86; Resp 18; Temp 97.8(O); Pulse Ox 100% on R/A; Weight 93 kg; mb8 Height 5 ft. 7 in. (170.18 cm); Pain 0/10; 14:18 BP 126 / 89; Pulse 79; Resp 16; Pulse Ox 100% on R/A; Pain 0/10; mb8 15:00 BP 130 / 86; Pulse 79; Resp 18; Pulse Ox 99% ; mb8 16:02 BP 119 / 78; Pulse 72; Resp 16; Pulse Ox 98% on R/A; Pain 0/10; mb8 13:09 Body Mass Index 32.11 (93.00 kg, 170.18 cm) mb8 MDM: 13:09 Patient medically screened. pm1 13:57 Data reviewed: vital signs. Data interpreted: Pulse oximetry: on room air is 100 %. pm1 Interpretation: normal. 15:54 ED course: Patient without any episodes of tachycardia or complaints of palpitations or pm1 any complaints during ER visit. 16:17 Counseling: I had a detailed discussion with the patient and/or guardian regarding: the pm1 historical points, exam findings, and any diagnostic results supporting the discharge/admit diagnosis, lab results, radiology results, the need for outpatient follow up, PCP for holter monitoring if needed, to return to the emergency department if symptoms worsen or persist or if there are any questions or concerns that arise at home. 07/24 13:18 Order name: Basic Metabolic Panel; Complete Time: 15:24 pm1 07/24 13:18 Order name: CBC with Diff; Complete Time: 13:49 pm1 07/24 13:18 Order name: Magnesium; Complete Time: 15:24 pm1 07/24 13:18 Order name: PT-INR; Complete Time: 13:49 pm1 07/24 13:18 Order name: Troponin HS; Complete Time: 15:24 pm1 07/24 13:18 Order name: XRAY Chest (1 view); Complete Time: 14:27 pm1 07/24 13:18 Order name: EKG; Complete Time: 13:18 pm1 07/24 13:18 Order name: Cardiac monitoring; Complete Time: 13:19 pm1 07/24 13:18 Order name: EKG - Nurse/Tech; Complete Time: 13:19 pm1 07/24 13:18 Order name: IV Saline Lock; Complete Time: 13:23 pm1 07/24 13:18 Order name: Labs collected and sent; Complete Time: 13:23 pm1 07/24 13:18 Order name: O2 Per Protocol; Complete Time: 13:19 pm1 07/24 13:18 Order name: O2 Sat Monitoring; Complete Time: 13:19 pm1 07/24 14:02 Order name: Labs - recollect needed: recollect green top; Complete Time: 14:16 bd EC:16 Rate is 131 beats/min. Rhythm is regular, Normal Sinus Rhythm with No ectopy. QRS [place] pm1 is Normal. OR interval is normal. QRS interval is normal. QT interval is normal. No Q waves. T waves are Normal. No ST changes noted. Clinical impression: Normal ECG. Administered Medications: No medications were administered Disposition: 14:07 Co-signature as Attending Physician, Jaxson RODRIGUEZ was immediately available onsite ms3 in the emergency department for consultation in the care of the patient. Disposition Summary: 07/24/22 16:19 Discharge Ordered Location: Home pm1 Problem: new pm1 Symptoms: have improved pm1 Condition: Stable pm1 Diagnosis - Palpitations pm1 Followup: pm1 - With: Emergency Department - When: As needed - Reason: Worsening of condition Followup: pm1 - With: Private Physician - When: 2 - 3 days - Reason: Recheck today's complaints, Continuance of care, Re-evaluation by your physician Discharge Instructions: - Discharge Summary Sheet pm1 - Palpitations pm1 Forms: - Medication Reconciliation Form pm1 - Thank You Letter pm1 - Antibiotic Education pm1 - Prescription Opioid Use pm1 Signatures: Dispatcher [employer] EDMS Mikaela Antoine Patrick, FLAKEBOARD LINE TENDER FLAKEBOARD LINE TENDER pm1 Jaxson Alba DO DO ms3 Dominic Nichole, RN RN mb8
--- NOTE | 2022-07-24 16:19 | ER ---
Nurse's Notes [facility] Name: Ben Otto Age: 57 yrs Sex: Male : 1965 Arrival Date: 07/24/2022 Time: 13:07 Bed 2 Private MD: Diagnosis: Palpitations Presentation: 07/24 13:09 Chief complaint: Patient states: he was alf through a 3.5 hour dialysis appointment mb8 today when the nurse said his HR jumped up to 160s. Patient denies any chest pain, SOB, or light-headed. Coronavirus screen: Vaccine status: Patient reports receiving the 2nd dose of the covid vaccine. Ebola Screen: Patient negative for fever greater than or equal to 101.5 degrees Fahrenheit, and additional compatible Ebola Virus Disease symptoms Patient denies exposure to infectious person. Patient denies travel to an Ebola-affected area in the 21 days before illness onset. Initial Sepsis Screen: Does the patient meet any 2 criteria? No. Patient's initial sepsis screen is negative. Initial Sepsis Screen: Does the patient have a suspected source of infection? No. Patient's initial sepsis screen is negative. Risk Assessment: Do you want to hurt yourself or someone else? Patient reports no desire to harm self or others. Onset of symptoms was July 24, 2022. 13:09 Method Of Arrival: EMS: [facility] mb8 13:09 Acuity: JEREMY 3 mb8 Triage Assessment: 13:11 General: Appears in no apparent distress. comfortable, Behavior is calm, cooperative, mb8 appropriate for age. Pain: Denies pain. Historical: - Allergies: 13:11 SHELLFISH; mb8 - PMHx: 13:11 chronic immune disease; CVA; Dialysis; M-W-F; End stage renal disease; mb8 - Social history:: Smoking status: Patient denies any tobacco usage or history of. Screenin:12 Abuse screen: Denies threats or abuse. Denies injuries from another. Nutritional mb8 screening: No deficits noted. Tuberculosis screening: No symptoms or risk factors identified. Fall Risk No fall in past 12 months (0 pts). Secondary diagnosis (15 points) No IV (0 pts). Ambulatory Aid- Crutches/Cane/Walker (15 pts). Gait- Weak (10 pts.). Mental Status- Oriented to own ability (0 pts). Total Chan Fall Scale indicates Low Risk Score (25-44 pts). Fall prevention measures have been instituted. Side Rails Up X 2 As available Patient and Family Educated on Fall Prevention Program and strategies. Assessment: 13:12 Pain: Denies pain. Neuro: No deficits noted. Cardiovascular: No deficits noted. Rhythm mb8 is sinus rhythm HR 80. Respiratory: No deficits noted. GI: No deficits noted. 14:18 Reassessment: Patient and/or family updated on plan of care and expected duration. Pain mb8 level reassessed. Patient is alert, oriented x 3, equal unlabored respirations, skin warm/dry/pink. Patient denies pain at this time. 15:11 Reassessment: Patient and/or family updated on plan of care and expected duration. Pain mb8 level reassessed. Patient is alert, oriented x 3, equal unlabored respirations, skin warm/dry/pink. 16:02 Reassessment: Patient and/or family updated on plan of care and expected duration. Pain mb8 level reassessed. Patient is alert, oriented x 3, equal unlabored respirations, skin warm/dry/pink. Patient denies pain at this time. Vital Signs: 13:09 BP 126 / 98; Pulse 86; Resp 18; Temp 97.8(O); Pulse Ox 100% on R/A; Weight 93 kg; mb8 Height 5 ft. 7 in. (170.18 cm); Pain 0/10; 14:18 BP 126 / 89; Pulse 79; Resp 16; Pulse Ox 100% on R/A; Pain 0/10; mb8 15:00 BP 130 / 86; Pulse 79; Resp 18; Pulse Ox 99% ; mb8 16:02 BP 119 / 78; Pulse 72; Resp 16; Pulse Ox 98% on R/A; Pain 0/10; mb8 13:09 Body Mass Index 32.11 (93.00 kg, 170.18 cm) mb8 Vitals: 14:17 Cardiac Rhythm Assessment Sinus rhythm. mb8 15:00 Cardiac Rhythm Assessment Sinus rhythm. mb8 16:02 Cardiac Rhythm Assessment Sinus rhythm. mb8 ED Course: 13:07 Patient arrived in ED. jd3 13:09 Dominic Nichole, JOBY is Primary Nurse. mb8 13:09 Floyd Jefferson NP is PHCP. pm1 13:09 Jaxson Alba DO is Attending Physician. pm1 13:11 Triage completed. mb8 13:12 Arm band placed on. mb8 13:13 Patient has correct armband on for positive identification. Placed in gown. Bed in low mb8 position. Call light in reach. Side rails up X2. Client placed on continuous cardiac and pulse oximetry monitoring. NIBP monitoring applied. court recording monitor on. 13:13 No provider procedures requiring assistance completed. mb8 13:20 Inserted saline lock: 20 gauge in right antecubital area, using aseptic technique. mb8 Blood collected. 13:58 XRAY Chest (1 view) In Process Unspecified. EDMS 16:30 IV discontinued, intact, bleeding controlled, No redness/swelling at site. Pressure mb8 dressing applied. Administered Medications: No medications were administered Medication: 13:12 VIS not applicable for this client. mb8 Outcome: 16:19 Discharge ordered by MD. pm1 16:35 Discharged to home ambulatory, with family. mb8 16:35 Condition: stable 16:35 Discharge instructions given to patient, family, Instructed on discharge instructions, follow up and referral plans. Demonstrated understanding of instructions, follow-up care. 16:36 Patient left the ED. mb8 Signatures: Dispatcher [employer] EDMS Floyd Jefferson NP TOOL OR DIE DRAWING CHECKER pm1 Noble Lechuga RN RN Dominic Alejandro RN RN mb8
[2022-07-24 17:14] VITALS: TEMP 97.8
[2022-07-24 17:35] VITALS: BP 119/78; O2SAT 98
--- NOTE | 2022-07-25 14:33 | EKG ---
Test Date: 2022-07-24 Test Time: 13:14:23 Tree Loader Meat: PATRICIA MEASUREMENT RESULTS: Intervals: Rate: 80 WA: 190 QRSD: 78 QT: 374 QTc: 431 [place]: P: 62 WA: 190 QRS: 82 T: 57 INTERPRETIVE STATEMENTS: Normal sinus rhythm Normal ECG Compared to ECG 11/20/2021 19:30:15 No significant changes Electronically Signed On 07-25-22 14:30:08 CDT by Charles Tracy
== END 2022-07-24 16:36 | disposition home or self-care (01) ==
LOC: ER 13:04
DX: R00.2 Palpitations (principal); N18.6 End stage renal disease; Z99.2 Dependence on renal dialysis; Z91.013 Allergy to seafood
CPT/HCPCS: 36415; 71045; 80048; 83735; 84484; 85025; 85610; 93005; 99284

== ENCOUNTER 2022-07-29 14:29 | Emergency (ER) | payer OTHER ==
--- OUTSIDE RECORDS SUMMARY | 2022-07-29 14:40 | XMS REPORT | Continuity of Care Document ---
:1965 Author Organization [facility] t Address [address] [place] [address] Dr. Mejia [address] [place] [id number] Care Team Providers Name Role Phone Pcp, Patient Does Not Have A Primary Care Physician [id number] ZULLY CHANG Attending Clinician Unavailable Zully Chang MD Attending Clinician Elidia Kat MD Attending Clinician [phone] Vtc-Lab Attending Clinician Unavailable Headhunter, Transplant Attending Clinician Unavailable OWEN STONE Attending [...] Date Expiration Date S isidro LEWIS PLS [id number] 2018 00:00:00 HMO Problems Condition Condition Condition Status Onset Resolution Last Treating Co mments Source Name Details Category Date Date Treatment Clinician Date No known No known Disease Unive rs active active ity of problems problems [facility] Allergies, Adverse Reactions, Alerts Allergy Allergy Status Severity Reaction(s) Onset Inactive Treating Comm ents Source Name Type Date Date Clinician Shellfiharrison Propensi Active Rash No Univer s h ty to 6-29 allergy ity of Derived adverse 00:00: to iodine [place] reaction 00 per Medical s patient Branch Social History Social Habit Start Date Stop Date Quantity Comments Source Exposure to 2022-03-17 2022-03-27 Not sure [facility] SARS-CoV-2 (event) 00:00:00 08:21:00 Medica l Branch Sex Ass[birth year] At [birth year] [facility] [place] 00:[facility] 00:00:00 Medical Branch Smoking Status Start Date Stop Date Source Tobacco smoking consumption [facility] Medical unknown Branch Medications Ordered Filled Start Stop Current Ordering Indication Dosage Frequency Signature Comments Components Source Medication Medication Date Date Medication? Clinician (SIG) Name Name sevelamer Yes 800mg Take 800 Uni vers carbonate 6-29 mg by ity of (RENVELA 09:45: mouth. [place] ORAL) 34 Medical Branch metoprolol Yes Take by Univ ers succinate 6-29 mouth. ity of 25 mg CSpX 09:45: [place] 34 Medical Branch Procedures This patient has no known procedures. Encounters Start End Encounter Admission Attending Care Care Encounter Source Date/Time Date/Time Type Type Clinicians Facility Department ID 2022-04-19 2022-04-19 Outpatient R [facility] [id number] Univers 09:00:00 09:00:00 ZULLY ity o f [facility] 2022-04-10 2022-04-10 [facility] [id number] Univers 00:00:00 00:00:00 Zully Bojorquez MULTISPEC 350.1.13.10 ity of IALTY 4.2.7.2.686 [facility] [id number] [facility] [address] [facility] 2022-04-10 2022-04-10 Telephone [facility] [id number] Univers 00:00:00 00:00:00 Zully Bojorquez MULTISPEC 350.1.13.10 ity of IALTY 4.2.7.2.686 [facility] [id number] [facility] [address] [facility] 2022-04-08 2022-04-08 Committee Luciano [facility] [id number] Univers 00:00:00 00:00:00 Review Elidia alegre MULTISPEC 350.1.13.10 ity of IALTY 4.2.7.2.686 [facility] [id number] [address] [facility] 2022-03-27 2022-03-27 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 2.840.114 [id number] 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, Transplant Social [facility] 1.2.840.114 [id number] Univers 11:00:00 11:58:21 Management Zully Chang MULTISPEC 350.1 .13.10 ity of IALTY 4.2.7.2.686 [facility] [id number] [address] [facility] 2022-03-27 2022-03-27 Office Owen Stone [facility] 1.2.840.114 [id number] Univers 10:00:00 11:58:04 Visit Zully Chang MULTISPEC 350.1.13 .10 ity of IALTY 4.2.7.2.686 [facility] [id number] [facility] [address] [facility] 2022-03-27 2022-03-27 Nurse Renal, Transplant Class [facility] 1. 2.840.114 [id number] [facility] 08:30:00 09:15:00 Visit Zully Chang MULTISPEC 350.1.13 .10 ity of IALTY 4.2.7.2.686 [facility] [id number] [facility] [address] [facility] 2019-08-19 2019-08-19 Emergency E [facility] [id number] [facility] 12:32:00 12:32:00 2019-08-11 2019-08-11 Emergency E [facility]UD [facility] [id number] [facility] 07:59:00 09:20:00 [facility] 2019-06-22 2019-06-22 [id number] 07:20:00 07:20:00 2019-05-26 2019-05-26 Outpatient MHIE MHIE [id number] [facility] 15:00:00 15:00:00 08 [facility] 2019-05-26 2019-05-26 Outpatient MHIE MHIE [id number] 15:00:00 15:00:00 08 [facility] 2018-08-26 2018-08-26 Outpatient MHIE MHIE [id number] 11:30:00 11:30:00 07 [facility] 2018-08-26 2018-08-26 Outpatient MHIE MHIE [id number] 11:30:00 11:30:00 07 gayle Campobello 2018-08-25 2018-08-25 Outpatient MHIE MHIE [id number] 14:00:00 14:00:00 06 [facility] 2018-08-25 2018-08-25 Outpatient MHIE MHIE [id number] 14:00:00 14:00:00 06 gayle GrossmanCampobello 2018-04-14 2018-04-14 Outpatient MHIE MHIE [id number] 10:00:00 10:00:00 05 gayle [place] 2018-04-14 2018-04-14 Outpatient MHIE MHIE [id number] 10:00:00 10:00:00 05 l Momo 2018-03-03 2018-03-04 Outpatient Elizabeth BARFIELD [facility] TELE [id number] [place] 15:47:00 12:01:00 PAULEl [facility] 2018-02-25 2018-02-25 Outpatient MHIE MHIE [id number] [facility] 14:30:00 14:30:00 04 l Camp[place] 2018-02-25 2018-02-25 Outpatient MHIE MHIE [id number] 14:30:00 14:30:00 04 l Momo 2017-09-01 2017-09-01 Outpatient MHIE MHIE [id number] 09:15:00 09:15:00 03 l Momo 2017-09-01 2017-09-01 Outpatient MHIE MHIE [id number] 09:15:00 09:15:00 03 gayle Barr 2017-05-07 2017-05-07 Outpatient MHIE MHIE [id number] 10:30:00 10:30:00 02 l Momo 2017-05-07 2017-05-07 Outpatient MHIE MHIE [id number] 10:30:00 10:30:00 02 l Momo 2017-04-25 2017-04-25 Outpatient MHIE MHIE [id number] 14:45:00 14:45:00 01 l Momo 2017-04-25 2017-04-25 Outpatient MHIE MHIE [id number] 14:45:00 14:45:00 01 l Momo 2017-03-07 2017-03-07 Outpatient MHIE MHIE [id number] 10:30:00 10:30:00 00 l [place] 2017-03-07 2017-03-07 Outpatient MHIE MHIE [id number] 10:30:00 10:30:00 00 gayle Barr Results Test Description Test Time Test Comments Results Result Comments Source BRAIN NATRIURETIC PROTEIN 2019-08-11 08:55:00 Test Item Value Reference Range Interpretation Comme nts proBNP (test code = PBNP) 750 pg/mL 0-125 H COMPREHENSIVE METABOLIC [id number] 08:55:00 Test Item Value Reference Range Interpretation [...] (test code = 31A) 15 IU/L <=78 [id number] 08:55:00 Test Item Value Reference Range Interpretation Comments MAGNESIUM (test code = 48A) 2.6 mg/dL 1.8-2.4 H PHOSPHORUS (P04)2019-08-11 08:55:00 Test Item Value Reference Range Interpretation Comments PHOSPHORUS (test code = 43D) 7.8 mg/dL 2.7-4.6 H TROPONIN [id number] 08:50:00 Test Item Value Reference Range Interpretation Comments TROPONIN I (test code = A84) <0.015 ng/mL 0.000-0.045 PRO TIME AND [id number] 08:43:00 Test Item Value Reference Range Interpretation [...] Order Code is ANTI-XA CT HEAD W/O [id number] 08:36:37CT brain without contrastLocation code: [id number] HISTORY: Dizziness COMPARISON: 03/03/18TECHNIQUE:Routine unenhanced axial imaging [...] = RBCMOR) NORMAL XR CHEST 1 VIEW [id number] 08:28:57Portable AP chest, 1 viewLocation Code: [id number] HISTORY: DizzinessCOMPARISON: 03/03/18COMMENT: The lungs are clear and well inflated. The costophrenic angles are sharp. Thecardiomediastinal silhouette is unremarkable. The bones are intact.IMPRESSION: Stable chest with no acute abnormalityURINALYSIS WITH [id number] 06:31:00 Test Item Value Reference Range Interpretation [...] code = USPERM) /HPF NONE BASIC METABOLIC [id number] 04:20:00 Test Item Value Reference Range Interpretation [...] = 09D) 7.8 mg/dL 8.3-9.5 L CARDIAC [id number] 04:14:00 Test Item Value Reference Range Interpretation [...] MORPH (test code = RBCMOR) NORMAL CARDIAC [id number] 21:34:00 Test Item Value Reference Range Interpretation Comments TROPONIN I (test code = A84) <0.015 ng/mL 0.000-0.045 CKMB (test code = A49) 1.3 ng/mL <=3.6 CPK (test code = 32A) 50 IU/L 39-308 U/S CAROTID COLOR DOPPLER [id number] 21:13:04Examination: Bilateral carotid Doppler ultrasoundLocation code: H9Sxcvpmjkkq: NoneTechnique:Clinicalhistory is remarkable for dizziness, giddiness. Real-time [...] present, no hemodynamicallysignificant stenosis identified.CT HEAD W/O [id number] 14:56:12CT Brain without contrast.Location code:[id number] HISTORY: [id number]: Chest painComparison: NoneTechnique: Routine unenhanced CT brain [...] acuteintracranial abnormality. Old right thalamic infarct.AMYLASE AND [id number] 14:42:00 Test Item Value Reference Range Interpretation Comments AMYLASE (test code = 10A) 68 U/L 28-100 LIPASE (test code = 60A) 130 IU/L 73-393 COMPREHENSIVE METABOLIC [id number] 14:42:00 Test Item Value Reference Range Interpretation [...] 31A) 23 IU/L <=78 PRO TIME AND [id number] 14:41:00 Test Item Value Reference Range Interpretation [...] Code is ANTI-XA XR CHEST 1 VIEW [id number] 14:38:47EXAMINATION: XR CHEST 1 VIEW PORTABLE.LOCATION: D4.HISTORY: Chest pain, dizziness.COMPARISON: None.FI NDINGS:Examination is limited due to portable technique, patient body habitus and lowlung volumes.Cardiac silhouette/Mediastinal contour: Prominence of cardiac silhouette. Lungs: No focal consolidation. No large pleural effusion. Pulmonary vascularcongestion.Osseous Structures: Mild degenerative changes of thoracic spine.IMPRESSION: Limited study, pulmonary vascular congestion.DRUGS OF [id number] 14:36:00 Test Item Value Reference Range Interpretation [...]
--- NOTE | 2022-07-29 15:15 | RAD REPORT ---
EXAM DESCRIPTION: RAD - Chest Single View - 07/29/2022 3:02 pm CLINICAL HISTORY: DYSPNEA COMPARISON: Portable 07/24/2022 TECHNIQUE: AP portable chest image was obtained 07/29/2022 3:02 pm . FINDINGS: Lungs are clear. Heart and vasculature are normal. No measurable pleural effusion and no p neumothorax. No acute bony abnormality seen. No acute aortic findings suspected. IMPRESSION: No acute cardiopulmonary process. No significant change from comparison.
[2022-07-29 15:56] LABS: Absolute Lymphocytes (CBC) 1.3 K/uL (0.7-4.9); Hematocrit 41.8 % (39.6-49.0); Lymphocytes % 21.8 % (15.3-44.8); MCV 97.7 fL (80-100); MPV 7.5 fL (7.6-11.3); RBC Red Blood Cell Count 4.28 M/uL (4.33-5.43)
[2022-07-29 16:14] LABS: Potassium 3.7 mmol/L (3.5-5.1); Troponin High Sensitivity 12.8 pg/mL (<58.9)
--- NOTE | 2022-07-29 16:32 | ER ---
Nurse's Notes [facility] Name: Ben Otto Age: 57 yrs Sex: Male : 1965 Arrival Date: 07/29/2022 Time: 14:35 Bed 8 Private MD: Diagnosis: Palpitations;End stage renal disease;Renal failure, dialysis Presentation: 07/29 14:41 Chief complaint: EMS states: Was at dialysis, approx half way through treatment heart ph rate went up to 157, then went back down to the 60's, then went up again to 130s. HR for EMS 60-70 bpm, Pt's only complaint is fatigue, which he states is usual after dialysis, and some blurred vision. Other VSS, BGL 149. Dialysis staff reports that approx 1 kilo of fluid was removed during tx. Coronavirus screen: Vaccine status: Patient reports receiving the 2nd dose of the covid vaccine. Ebola Screen: No symptoms or risks identified at this time. 14:41 Method Of Arrival: EMS: [facility] 14:44 Initial Sepsis Screen: Does the patient meet any 2 criteria? No. Patient's initial ph sepsis screen is negative. Does the patient have a suspected source of infection? No. Patient's initial sepsis screen is negative. Risk Assessment: Do you want to hurt yourself or someone else? Patient reports no desire to harm self or others. Onset of symptoms was July 29, 2022. 14:44 Acuity: JEREMY 3 ph Triage Assessment: 14:44 General: Appears in no apparent distress. comfortable, Behavior is calm, cooperative, ph appropriate for age. Pain: Denies pain. Neuro: Level of Consciousness is awake, alert, obeys commands, Oriented to person, place, time, situation. Neuro: Reports blurred vision. Cardiovascular: Capillary refill < 3 seconds in bilateral fingers Patient's skin is warm and dry. Dialysis shunt: in the left bicep, with palpable thrill, with auscultated bruit, with no erythema, with no edema, no bleeding noted. Respiratory: Airway is patent Respiratory effort is even, unlabored. Derm: Skin is pink, warm \T\ dry. Musculoskeletal: Circulation, motion, and sensation intact. Range of motion: intact in all extremities. Historical: - Allergies: 14:44 SHELLFISH; ph - PMHx: 14:44 chronic immune disease; CVA; Dialysis; M-W-F; End stage renal disease; ph - Immunization history:: Adult Immunizations up to date. - Social history:: Smoking status: Patient denies any tobacco usage or history of. Screenin:46 Abuse screen: Denies threats or abuse. Denies injuries from another. Nutritional ph screening: No deficits noted. Tuberculosis screening: No symptoms or risk factors identified. Fall Risk None identified. Assessment: 15:30 General: SEE TRIAGE ASSESSMENT. ph 17:07 Reassessment: Patient appears in no apparent distress at this time. Patient and/or ph family updated on plan of care and expected duration. Pain level reassessed. Patient is alert, oriented x 3, equal unlabored respirations, skin warm/dry/pink. Pt d/c home. Vital Signs: 14:41 BP 123 / 81; Pulse 60; Resp 18; Pulse Ox 99% on R/A; ph 14:46 Temp 97.8(O); ph 17:07 BP 124 / 89; Pulse 62; Resp 18; Temp 97.9; Pulse Ox 99% on R/A; ph ED Course: 14:35 Patient arrived in ED. bd 14:35 Holland Monique MD is Attending Physician. kdr 14:41 Cristal Judd, JOBY is Primary Nurse. ph 14:44 Triage completed. ph 14:45 Arm band placed on Patient placed in an exam room, on a stretcher, on armature rewinder, ph on pulse oximetry. 14:46 Patient has correct armband on for positive identification. Bed in low position. Call ph light in reach. Side rails up X 1. Client placed on continuous cardiac and pulse oximetry monitoring. NIBP monitoring applied. 15:04 XRAY Chest (1 view) In Process Unspecified. EDMS 15:32 Missed attempt(s): 22 gauge in right antecubital area. Bleeding controlled, band aid ph applied, catheter tip intact. 15:49 Accessed peripheral vein via ultrasound, utilizing dynamic ultrasound technique using jd3 20G Nexia IV catheter ,sterile technique, per hospital protocol. Clean \T\ dry. Dressing intact. Good blood return. Flushes easily. 17:06 No provider procedures requiring assistance completed. IV discontinued, intact, ph bleeding controlled, No redness/swelling at site. Pressure dressing applied. Administered Medications: No medications were administered Medication: 14:46 VIS not applicable for this client. ph Outcome: 16:32 Discharge ordered by . kdr 17:07 Discharged to home ambulatory. ph 17:07 Condition: good 17:07 Discharge instructions given to patient, Instructed on discharge instructions, follow up and referral plans. Demonstrated understanding of instructions, follow-up care. 17:08 Patient left the ED. ph Signatures: Dispatcher [employer] EDMS Mikaela Antoine Kevin, MD MD kdr Cristal Judd RN RN ph Noble Lechuga RN RN jd3
--- NOTE | 2022-07-29 16:32 | EDPHYS ---
Physician Documentation [facility] Name: Ben Otto Age: 57 yrs Sex: Male : 1965 Arrival Date: 07/29/2022 Time: 14:35 Bed 8 Private MD: ED Physician Holland Monique HPI: 07/29 16:38 This 57 yrs old Male presents to ER via EMS with complaints of Increased heart kdr rate. 16:38 Patient also had to start dialysis with noted that his heart rate increased to about kdr 167. Onset: The symptoms/episode began/occurred suddenly, just prior to arrival. Severity of symptoms: At their worst the symptoms were mild in the emergency department the symptoms are unchanged. The patient has not experienced similar symptoms in the past. The patient has not recently seen a physician. Patient stated that after his heart rate increased, EMS was called. By the time EMS arrived his heart rate had returned to normal. Patient had few symptoms other than palpitations. Once the rate decreased, he returned to baseline and was otherwise without complication. He states that he has been having these episodes off and on for a few days. Further that they usually though not always occur prior to him taking his beta-sarkis. He does not take his beta-sarkis prior to dialysis. Patient has no acute indication for intervention at this time is completely normal and at baseline and nontoxic-appearing. Historical: - Allergies: 14:44 SHELLFISH; ph - PMHx: 14:44 chronic immune disease; CVA; Dialysis; M-W-F; End stage renal disease; ph - Immunization history:: Adult Immunizations up to date. - Social history:: Smoking status: Patient denies any tobacco usage or history of. ROS: 16:38 Constitutional: Negative for fever, chills, and weight loss, Eyes: Negative for injury, kdr pain, redness, and discharge, Neck: Negative for injury, pain, and swelling, Cardiovascular: Negative for chest pain, and edema, he did have palpitations with the increased heart rate to 167 Respiratory: Negative for shortness of breath, cough, wheezing, and pleuritic chest pain, Abdomen/GI: Negative for abdominal pain, nausea, vomiting, diarrhea, and constipation, Back: Negative for injury and pain, : Negative for injury, bleeding, discharge, and swelling, MS/Extremity: Negative for injury and deformity, Skin: Negative for injury, rash, and discoloration, Neuro: Negative for headache, weakness, numbness, tingling, and seizure activity. Psych: Negative for depression, anxiety, suicide ideation, homicidal ideation, and hallucinations, Allergy/Immunology: Negative for hives, rash, and allergies, Endocrine: Negative for neck swelling, polydipsia, polyuria, polyphagia, and marked weight changes, Hematologic/Lymphatic: Negative for swollen nodes, abnormal bleeding, and unusual bruising. Exam: 16:38 Constitutional: This is a well developed, well nourished patient who is awake, alert, kdr and in no acute distress. Head/Face: Normocephalic, atraumatic. Eyes: Pupils equal round and reactive to light, extra-ocular motions intact. Lids and lashes normal. Conjunctiva and sclera are non-icteric and not injected. Cornea within normal limits. Periorbital areas with no swelling, redness, or edema. Neck: Trachea midline, no thyromegaly or masses palpated, and no cervical lymphadenopathy. Supple, full range of motion without nuchal rigidity, or vertebral point tenderness. No Meningismus. Chest/axilla: Normal chest wall appearance and motion. Nontender with no deformity. No lesions are appreciated. Cardiovascular: Regular rate and rhythm with a normal S1 and S2. No gallops, murmurs, or rubs. Normal PMI, no JVD. No pulse deficits. Respiratory: Lungs have equal breath sounds bilaterally, clear to auscultation and percussion. No rales, rhonchi or wheezes noted. No increased work of breathing, no retractions or nasal flaring. Abdomen/GI: Soft, non-tender, with normal bowel sounds. No distension or tympany. No guarding or rebound. No evidence of tenderness throughout. Back: No spinal tenderness. No costovertebral tenderness. Full range of motion. Skin: Warm, dry with normal turgor. Normal color with no rashes, no lesions, and no evidence of cellulitis. MS/ Extremity: Pulses equal, no cyanosis. Neurovascular intact. Full, normal range of motion. Neuro: Awake and alert, GCS 15, oriented to person, place, time, and situation. Cranial nerves II-XII grossly intact. Motor strength 5/5 in all extremities. Sensory grossly intact. Cerebellar exam normal. Normal gait. Psych: Awake, alert, with orientation to person, place and time. Behavior, mood, and affect are within normal limits. Vital Signs: 14:41 BP 123 / 81; Pulse 60; Resp 18; Pulse Ox 99% on R/A; ph 14:46 Temp 97.8(O); ph 17:07 BP 124 / 89; Pulse 62; Resp 18; Temp 97.9; Pulse Ox 99% on R/A; ph MDM: 16:32 Patient medically screened. kdr 16:38 Data reviewed: vital signs, nurses notes, lab test result(s), radiologic studies. kdr Counseling: I had a detailed discussion with the patient and/or guardian regarding: the historical points, exam findings, and any diagnostic results supporting the discharge/admit diagnosis, lab results, radiology results, the need for outpatient follow up. 07/29 14:52 Order name: Basic Metabolic Panel; Complete Time: 16:31 [facility] 07/29 14:52 Order name: CBC with Diff; Complete Time: 16:31 [facility] 07/29 14:52 Order name: NT PRO-BNP; Complete Time: 16: [facility] 07/29 14:52 Order name: Troponin HS; Complete Time: 16:31 [facility] 07/29 14:52 Order name: XRAY Chest (1 view); Complete Time: 16:31 [facility] 07/29 14:52 Order name: EKG; Complete Time: 14:52 [facility] 07/29 14:52 Order name: Cardiac monitoring; Complete Time: 15:05 [facility] 07/29 14:52 Order name: EKG - Nurse/Tech; Complete Time: 15:32 [facility] 07/29 14:52 Order name: IV Saline Lock; Complete Time: 15:48 [facility] 07/29 14:52 Order name: Labs collected and sent; Complete Time: 15:48 [facility] 07/29 14:52 Order name: O2 Per Protocol; Complete Time: 14:59 [facility] 07/29 14:52 Order name: O2 Sat Monitoring; Complete Time: 14:59 kdr Administered Medications: No medications were administered Disposition Summary: 07/29/22 16:32 Discharge Ordered Location: Home kdr Problem: new kdr Symptoms: have improved kdr Condition: Stable kdr Diagnosis - Palpitations kdr - End stage renal disease kdr - Renal failure, dialysis kdr Followup: kdr - With: Private Physician - When: 2 - 3 days - Reason: If symptoms return, Further diagnostic work-up, Recheck today's complaints, Continuance of care, Re-evaluation by your physician Discharge Instructions: - Discharge Summary Sheet kdr - Dialysis kdr - End-Stage Kidney Disease kdr - Palpitations, Slux-oe-Lahr kdr Forms: - Medication Reconciliation Form kdr - Thank You Letter kdr Signatures: Dispatcher [employer] Holland Mercado MD MD kdr Cristal Judd RN RN ph
[2022-07-29 17:12] VITALS: O2SAT 99
[2022-07-29 17:14] VITALS: BP 124/89; TEMP 97.9
--- NOTE | 2022-08-01 06:05 | EKG ---
Test Date: 2022-07-29 Test Time: 15:13:01 [place] Drier: [id number] MEASUREMENT RESULTS: Intervals: Rate: 63 OK: 214 QRSD: 70 QT: 392 QTc: 401 Elora: P: 71 OK: 214 QRS: 73 T: 30 INTERPRETIVE STATEMENTS: Sinus rhythm with 1st degree AV block Otherwise normal ECG Compared to ECG 07/24/2022 13:14:23 First degree AV block now present Electronically Signed On 08-01-22 06:00:29 CDT by Han Bowens
== END 2022-07-29 17:08 | disposition home or self-care (01) ==
LOC: ER 14:29
DX: R00.2 Palpitations (principal); N18.6 End stage renal disease; Z99.2 Dependence on renal dialysis; Z91.013 Allergy to seafood
CPT/HCPCS: 36415; 71045; 80048; 83880; 84484; 85025; 93005; 99284

== ENCOUNTER 2022-08-05 21:52 | Emergency (ER) | payer OTHER ==
--- OUTSIDE RECORDS SUMMARY | 2022-08-05 21:55 | XMS REPORT | Continuity of Care Document ---
:1965 Author Organization [facility] t Address [address] [place] [address] Dr. Mejia [address] [place] [id number] Care Team Providers Name Role Phone Pcp, Patient Does Not Have A Primary Care Physician [id number] ZULLY CHANG Attending Clinician Unavailable Zully Chang MD Attending Clinician Elidia Kat MD Attending Clinician [phone] Vtc-Lab Attending Clinician Unavailable Bobbin Stripper, Transplant Attending Clinician Unavailable OWEN STONE Attending [...] Date Expiration Date S isidro LEWIS PLS [id number] 2018 00:00:00 HMO Problems Condition Condition Condition Status Onset Resolution Last Treating Co mments Source Name Details Category Date Date Treatment Clinician Date No known No known Disease Unive rs active active ity of problems problems [facility] Allergies, Adverse Reactions, Alerts Allergy Allergy Status [...] Source Exposure to 2022-03-17 2022-03-27 Not sure [facility] SARS-CoV-2 (event) 00:00:00 08:21:00 Medica l Branch Sex Assigned At [birth year] [facility] [place] [facility] Medical Branch Smoking Status Start Date Stop Date Source Tobacco smoking consumption [facility] Medical unknown Branch Medications Ordered Filled Start Stop Current Ordering Indication Dosage Frequency Signature Comments Components Source Medication Medication Date Date Medication? Clinician (SIG) Name Name sevelamer Yes 800mg Take 800 Uni vers carbonate 6-29 mg by ity of ([place] 09:45: mouth. [place] ORAL) 34 Medical Branch metoprolol Yes Take by Univ ers succinate 6-29 mouth. ity of 25 mg CSpX 09:45: [place] 34 Medical Branch Procedures This patient has no known procedures. Encounters Start End Encounter Admission Attending Care Care Encounter Source Date/Time Date/Time Type Type Clinicians Facility Department ID 2022-04-19 2022-04-19 Outpatient R [facility] [id number] Univers 09:00:00 09:00:00 ZULLY ity o f [facility] 2022-04-10 2022-04-10 Telephone [facility] [id number] [id number] Univers 00:00:00 00:00:00 Zully Bojorquez MULTISPEC 350.1.13.10 ity of IALTY 4.2.7.2.686 [facility] [id number] [facility] [address] [facility] 2022-04-10 2022-04-10 Telephone [facility] [id number] Univers 00:00:00 00:00:00 Zully Bojorquez MULTISPEC 350.1.13.10 ity of IALTY 4.2.7.2.686 [facility] [id number] [facility] [address] [facility] 2022-04-08 2022-04-08 Committee Luciano [facility] [id number] Univers 00:00:00 00:00:00 Review Elidia alegre MULTISPEC 350.1.13.10 ity of IALTY 4.2.7.2.686 [facility] [id number] [address] [facility] 2022-03-27 2022-03-27 Linux Systems Analyst Vtc-Lab [facility] [id number] Univers 13:00:00 13:15:00 Visit Zully Chang MULTISPEC 350.1.13 .10 ity of IALTY 4.2.7.2.[address] [place] [address] [id number] [facility] [address] [facility] 2022-03-27 2022-03-27 Outpatient R CHARLENE, [facility] [id number] Univers 13:00:00 13:00:00 ZULLY ity o f [facility] 2022-03-27 2022-03-27 Bobbin Stripper Bobbin Stripper, Transplant [facility] 1. 2.840.114 [id number] [facility] 12:00:00 12:00:00 Visit Zully Chang MULTISPEC 350.1.13 .10 ity of IALTY 4.2.7.2.[address] [place] [id number] [facility] 2022-03-27 2022-03-27 Outpatient R OWEN STONE [facility] [id number] Univers 11:00:00 11:58:21 ity of [facility] 2022-03-27 2022-03-27 Pari Mutuel Ticket Cashier, Transplant Social [facility] 1.2.840.114 [id number] Univers 11:00:00 11:58:21 Management Zully Chang MULTISPEC 350.1 .13.10 ity of IALTY 4.2.7.2.686 [facility] [id number] [address] [facility] 2022-03-27 2022-03-27 Office Owen Stone [facility] 1.2.840.114 [id number] Univers 10:00:00 11:58:04 Visit Zully Chang MULTISPEC 350.1.13 .10 ity of IALTY 4.2.7.2.686 [facility] [id number] [facility] [address] [facility] 2022-03-27 2022-03-27 Nurse Renal, Transplant Class [facility] 1. 2.840.114 [id number] [facility] 08:30:00 09:15:00 Visit Zully Chang MULTISPEC 350.1.13 .10 ity of IALTY 4.2.7.2.686 [facility] [id number] [facility] [address] [facility] 2019-08-19 2019-08-19 Emergency E [facility]FB [facility] [id number] [facility]FB 12:32:00 12:32:00 2019-08-11 2019-08-11 Emergency E ELIUD MAY [facility] [id number] [facility] 07:59[facility]00 09:20:00 [facility] 2019-06-22 2019-06-22 [id number] 07:20:00 07:20:00 2019-05-26 2019-05-26 Outpatient MHIE MHIE [id number] 15:00:00 15:00:00 08 [facility] 2019-05-26 2019-05-26 Outpatient MHIE MHIE [id number] 15:00:00 15:00:00 08 [facility] 2018-08-26 2018-08-26 Outpatient MHIE MHIE [id number] 11:30:00 11:30:00 07 [facility] 2018-08-26 2018-08-26 Outpatient MHIE MHIE [id number] 11:30:00 11:30:00 07 gayle Montalba 2018-08-25 2018-08-25 Outpatient MHIE MHIE [id number] [facility] 14:00:00 14:00:00 06 [facility] 2018-08-25 2018-08-25 Outpatient MHIE MHIE [id number] [facility] 14:00:00 14:00:00 06 gayle GrossmanMontalba 2018-04-14 2018-04-14 Outpatient MHIE MHIE [id number] [facility] 10:00:00 10:00:00 05 gayle Montalba 2018-04-14 2018-04-14 Outpatient MHIE MHIE [id number] [facility] 10:00:00 10:00:00 05 l Momo 2018-03-03 2018-03-04 Outpatient Elizabeth [facility] TELE [id number] [facility] 15:47:00 [facility]:01:[facility] 2018-02-25 2018-02-25 Outpatient MHIE MHIE [id number] 14:30:00 14:30:00 04 l Montalba 2018-02-25 2018-02-25 Outpatient MHIE MHIE [id number] [facility] 14:30:00 14:30:00 04 l Momo 2017-09-01 2017-09-01 Outpatient MHIE MHIE [id number] [facility] 09:15:00 09:15:00 03 l Momo 2017-09-01 2017-09-01 Outpatient MHIE MHIE [id number] 09:15:00 09:15:00 03 gayle Barr 2017-05-07 2017-05-07 Outpatient MHIE MHIE [id number] [facility] 10:30:00 10:30:00 02 l Momo 2017-05-07 2017-05-07 Outpatient MHIE MHIE [id number] [facility] 10:30:00 10:30:00 02 l Momo 2017-04-25 2017-04-25 Outpatient MHIE MHIE [id number] [facility] 14:45:00 14:45:00 01 l Momo 2017-04-25 2017-04-25 Outpatient MHIE MHIE [id number] 14:45:00 14:45:00 01 l Momo 2017-03-07 2017-03-07 Outpatient MHIE MHIE [id number] 10:30:00 10:30:00 00 l Montalba 2017-03-07 2017-03-07 Outpatient MHIE MHIE [id number] 10:30:00 10:30:00 00 gayle Barr Results Test Description Test Time Test Comments Results Result Comments Source BRAIN NATRIURETIC PROTEIN 2019-08-11 08:55:00 Test Item Value Reference Range Interpretation Comme nts proBNP (test code = PBNP) 750 pg/mL 0-125 H COMPREHENSIVE METABOLIC [id number] 08:55:00 Test Item Value Reference Range Interpretation [...] (test code = 31A) 15 IU/L <=78 [id number] 08:55:00 Test Item Value Reference Range Interpretation Comments MAGNESIUM (test code = 48A) 2.6 mg/dL 1.8-2.4 H PHOSPHORUS (P04)2019-08-11 08:55:00 Test Item Value Reference Range Interpretation Comments PHOSPHORUS (test code = 43D) 7.8 mg/dL 2.7-4.6 H TROPONIN [id number] 08:50:00 Test Item Value Reference Range Interpretation Comments TROPONIN I (test code = A84) <0.015 ng/mL 0.000-0.045 PRO TIME AND [id number] 08:43:00 Test Item Value Reference Range Interpretation [...] Order Code is ANTI-XA CT HEAD W/O [id number] 08:36:37CT brain without contrastLocation code: [id number] HISTORY: Dizziness COMPARISON: 03/03/18TECHNIQUE:Routine unenhanced axial imaging [...] = RBCMOR) NORMAL XR CHEST 1 VIEW [id number] 08:28:57Portable AP chest, 1 viewLocation Code: [id number] HISTORY: DizzinessCOMPARISON: 03/03/18COMMENT: The lungs are clear and well inflated. The costophrenic angles are sharp. Thecardiomediastinal silhouette is unremarkable. The bones are intact.IMPRESSION: Stable chest with no acute abnormalityURINALYSIS WITH [id number] 06:31:00 Test Item Value Reference Range Interpretation [...] code = USPERM) /HPF NONE BASIC METABOLIC [id number] 04:20:00 Test Item Value Reference Range Interpretation [...] = 09D) 7.8 mg/dL 8.3-9.5 L CARDIAC [id number] 04:14:00 Test Item Value Reference Range Interpretation [...] MORPH (test code = RBCMOR) NORMAL CARDIAC [id number] 21:34:00 Test Item Value Reference Range Interpretation Comments TROPONIN I (test code = A84) <0.015 ng/mL 0.000-0.045 CKMB (test code = A49) 1.3 ng/mL <=3.6 CPK (test code = 32A) 50 IU/L 39-308 U/S CAROTID COLOR DOPPLER [id number] 21:13:04Examination: Bilateral carotid Doppler ultrasoundLocation code: B1Nrvuqvdvls: NoneTechnique:Clinicalhistory is remarkable for dizziness, giddiness. Real-time [...] present, no hemodynamicallysignificant stenosis identified.CT HEAD W/O [id number] 14:56:12CT Brain without contrast.Location code:[id number] HISTORY: [id number]: Chest painComparison: NoneTechnique: Routine unenhanced CT brain [...] acuteintracranial abnormality. Old right thalamic infarct.AMYLASE AND [id number] 14:42:00 Test Item Value Reference Range Interpretation Comments AMYLASE (test code = 10A) 68 U/L 28-100 LIPASE (test code = 60A) 130 IU/L 73-393 COMPREHENSIVE METABOLIC [id number] 14:42:00 Test Item Value Reference Range Interpretation [...] 31A) 23 IU/L <=78 PRO TIME AND [id number] 14:41:00 Test Item Value Reference Range Interpretation [...] Code is ANTI-XA XR CHEST 1 VIEW [id number] 14:38:47EXAMINATION: XR CHEST 1 VIEW PORTABLE.LOCATION: D4.HISTORY: Chest pain, dizziness.COMPARISON: None.FI NDINGS:Examination is limited due to portable technique, patient body habitus and lowlung volumes.Cardiac silhouette/Mediastinal contour: Prominence of cardiac silhouette. Lungs: No focal consolidation. No large pleural effusion. Pulmonary vascularcongestion.Osseous Structures: Mild degenerative changes of thoracic spine.IMPRESSION: Limited study, pulmonary vascular congestion.DRUGS OF [id number] 14:36:00 Test Item Value Reference Range Interpretation [...]
[2022-08-05 23:10] LABS: Absolute Lymphocytes (CBC) 1.8 K/uL (0.7-4.9); Hematocrit 42.3 % (39.6-49.0); Lymphocytes % 25.4 % (15.3-44.8); MCV 98.1 fL (80-100); MPV 8.2 fL (7.6-11.3); RBC Red Blood Cell Count 4.31 M/uL (4.33-5.43)
[2022-08-05 23:37] LABS: Magnesium 2.5 mg/dL (1.8-2.4); Potassium 3.8 mmol/L (3.5-5.1); Troponin High Sensitivity 13.3 pg/mL (<58.9)
--- NOTE | 2022-08-06 00:30 | EDPHYS ---
Physician Documentation [facility] Name: Ben Otto Age: 57 yrs Sex: Male : 1965 Arrival Date: 08/05/2022 Time: 22:02 Bed 17 Private MD: ED Physician Domo Plummer HPI: 08/05 22:14 This 57 yrs old Male presents to ER via EMS with complaints of Irregular Pulse.cp 22:15 The patient presents with a history of heart racing. cp 22:15 Context: The symptoms occur at rest. Onset: The symptoms/episode began/occurred today. cp Duration: The patient or guardian reports multiple episodes, that are intermittent. Associated signs and symptoms: Pertinent negatives: chest pain, cough, fever, SOB, syncope, vomiting. Severity of symptoms: in the emergency department the symptoms have improved moderately. 22:15 Patient reports completing dialysis today as scheduled. C/o intermittent episodes of cp palpitations over past couple weeks. Historical: - Allergies: 22:09 SHELLFISH; jb4 - PMHx: 22:09 chronic immune disease; CVA; Dialysis; M-W-F; End stage renal disease; jb4 - Immunization history:: Adult Immunizations. - Social history:: Smoking status: unknown. ROS: 22:20 Constitutional: Negative for body aches, chills, fever, poor PO intake. cp 22:20 Eyes: Negative for injury, pain, redness, and discharge. cp 22:20 ENT: Negative for drainage from ear(s), ear pain, sore throat, difficulty swallowing, difficulty handling secretions. 22:20 Cardiovascular: Positive for palpitations, Negative for chest pain, edema. 22:20 Respiratory: Negative for cough, shortness of breath, wheezing. 22:20 Abdomen/GI: Negative for abdominal pain, nausea, vomiting, and diarrhea. 22:20 Back: Negative for pain at rest, pain with movement. 22:20 Neuro: Negative for altered mental status, dizziness, headache, numbness, syncope, weakness. 22:20 All other systems are negative. Exam: 22:25 Constitutional: The patient appears in no acute distress, alert, awake, cp non-diaphoretic, non-toxic, well developed, well nourished. 22:25 Head/Face: Normocephalic, atraumatic. cp 22:25 Eyes: Periorbital structures: appear normal, Conjunctiva: normal, no exudate, no injection, Sclera: no appreciated abnormality, Lids and lashes: appear normal, bilaterally. 22:25 ENT: External ear(s): are unremarkable, Nose: is normal, Mouth: Lips: moist, Oral mucosa: pink and intact, moist, Posterior pharynx: Airway: no evidence of obstruction. 22:25 Chest/axilla: Inspection: normal. 22:25 Cardiovascular: Rate: normal, Rhythm: regular. 22:25 Respiratory: the patient does not display signs of respiratory distress, Respirations: normal, no use of accessory muscles, no retractions, labored breathing, is not present, Breath sounds: are clear throughout, no decreased breath sounds, no stridor, no wheezing. 22:25 Abdomen/GI: Inspection: abdomen appears normal, Palpation: abdomen is soft and non-tender, in all quadrants. 22:25 Back: pain, is absent, ROM is normal. 22:25 Neuro: Orientation: to person, place \T\ time. Mentation: is normal, Motor: moves all fours, strength is normal, Sensation: is normal. 22:37 ECG was reviewed by the Attending Physician. Vital Signs: 22:05 BP 115 / 73; Pulse 68; Resp 17; Temp 97.9(O); Pulse Ox 98% on R/A; Weight 92 kg (R); jb4 Height 5 ft. 7 in. (170.18 cm) (R); Pain 0/10; 23:21 BP 118 / 83; Pulse 65; Resp 16; Pulse Ox 100% on R/A; kd3 22:05 Body Mass Index 31.77 (92.00 kg, 170.18 cm) jb4 MDM: 22:14 Patient medically screened. 08/06 00:30 Data reviewed: vital signs, nurses notes, lab test result(s), EKG, radiologic studies. 00:30 Differential diagnosis: arrythmia, stress disorder. Test interpretation: by ED cp physician or midlevel provider: ECG. Counseling: I had a detailed discussion with the patient and/or guardian regarding: the historical points, exam findings, and any diagnostic results supporting the discharge/admit diagnosis, lab results, radiology results, to return to the emergency department if symptoms worsen or persist or if there are any questions or concerns that arise at home. 08/05 22:14 Order name: Basic Metabolic Panel; Complete Time: 23:47 cp 08/05 23:47 Interpretation: Normal except: BUN 28; CRE 7.28; GFR 8; CA 8.2. cp 08/05 22:14 Order name: CBC with Diff; Complete Time: 23:41 cp 08/05 23:41 Interpretation: Normal except: RBC 4.31. cp 08/05 22:14 Order name: Magnesium; Complete Time: 23:47 cp 08/05 22:14 Order name: Troponin HS; Complete Time: 23:47 cp 08/05 22:14 Order name: XRAY Chest (1 view) cp 08/05 22:14 Order name: EKG; Complete Time: 22:15 08/05 22:14 Order name: Cardiac monitoring; Complete Time: 22:52 cp 08/05 22:14 Order name: EKG - Nurse/Tech; Complete Time: 22:52 cp 08/05 22:14 Order name: IV Saline Lock; Complete Time: 22:52 08/05 22:14 Order name: Labs collected and sent; Complete Time: 22:52 08/05 22:14 Order name: O2 Per Protocol; Complete Time: 22:52 08/05 22:14 Order name: O2 Sat Monitoring; Complete Time: 22:52 cp EC/07 22:37 Rate is 65 beats/min. Rhythm is regular. DE interval is prolonged at 202 msec. QRS cp interval is normal. QT interval is normal. T waves are Inverted in leads aVL, aVR. Interpreted by me. Reviewed by me. Administered Medications: No medications were administered Disposition Summary: 08/06/22 00:30 Discharge Ordered Location: Home cp Problem: new cp Symptoms: have improved cp Condition: Stable cp Diagnosis - Palpitations cp Followup: cp - With: Han Bowens MD - When: 2 - 3 days - Reason: Recheck today's complaints Discharge Instructions: - Discharge Summary Sheet cp - Palpitations cp - Aspirin and Your Heart cp - Ambulatory Cardiac Monitoring cp Forms: - Medication Reconciliation Form cp - Thank You Letter cp - Antibiotic Education cp - Prescription Opioid Use cp Signatures: Dispatcher [employer] EDMS Manuel Nguyen PA PA cp Justin Rios RN RN jb4 Iris, Machelle, RN RN kd3
--- NOTE | 2022-08-06 00:30 | ER ---
Nurse's Notes [facility] Name: Ben Otto Age: 57 yrs Sex: Male : 1965 Arrival Date: 08/05/2022 Time: 22:02 Bed 17 Private MD: Diagnosis: Palpitations Presentation: 08/05 22:05 Chief complaint: Patient states: Pt called for EMS feeling like he was having episodes jb4 of tachycardia. [place] [facility] reported a HR in the 150's, Upon [facility] arrival his HR was in the 60's. Pt denies any other complaints. 12 lead EKG was normal. Coronavirus screen: At this time, the client does not indicate any symptoms associated with coronavirus-19. Ebola Screen: No symptoms or risks identified at this time. Initial Sepsis Screen: Does the patient meet any 2 criteria? No. Patient's initial sepsis screen is negative. Does the patient have a suspected source of infection? No. Patient's initial sepsis screen is negative. Risk Assessment: Do you want to hurt yourself or someone else? Patient reports no desire to harm self or others. Onset of symptoms was August 05, 2022. Transition of care: patient was not received from another setting of care. 22:05 Method Of Arrival: EMS: [facility] jb4 22:05 Acuity: JEREMY 3 jb4 Historical: - Allergies: 22:09 SHELLFISH; jb4 - PMHx: 22:09 chronic immune disease; CVA; Dialysis; M-W-F; End stage renal disease; jb4 - Immunization history:: Adult Immunizations. - Social history:: Smoking status: unknown. Screenin:20 Abuse screen: Denies threats or abuse. Denies injuries from another. Nutritional kd3 screening: No deficits noted. Tuberculosis screening: No symptoms or risk factors identified. Fall Risk None identified. Assessment: 23:20 General: Appears in no apparent distress. Behavior is calm, cooperative. Pain: Denies kd3 pain. Cardiovascular: Patient's skin is warm and dry. 23:21 Pain: Denies pain. kd3 23:21 Pain: Pain does not radiate. Pain Pain began no pain. kd3 Vital Signs: 22:05 BP 115 / 73; Pulse 68; Resp 17; Temp 97.9(O); Pulse Ox 98% on R/A; Weight 92 kg (R); jb4 Height 5 ft. 7 in. (170.18 cm) (R); Pain 0/10; 23:21 BP 118 / 83; Pulse 65; Resp 16; Pulse Ox 100% on R/A; kd3 22:05 Body Mass Index 31.77 (92.00 kg, 170.18 cm) jb4 ED Course: 22:02 Patient arrived in ED. 22:05 Justin Rios, RN is Primary Nurse. jb4 22:05 Domo Plummer MD is Attending Physician. sp3 22:09 Triage completed. jb4 22:09 Arm band placed on right wrist. jb4 22:10 Manuel Nguyen PA is PHCP. cp 22:11 Domo Plummer MD is Attending Physician. cp 22:52 Basic Metabolic Panel Sent. kd3 22:52 CBC with Diff Sent. kd3 22:52 Magnesium Sent. kd3 22:52 Troponin HS Sent. kd3 23:04 XRAY Chest (1 view) In Process Unspecified. EDMS 23:20 Patient has correct armband on for positive identification. Client placed on continuous kd3 cardiac and pulse oximetry monitoring. NIBP monitoring applied. 23:21 No provider procedures requiring assistance completed. Patient maintains SpO2 kd3 saturation greater than 95% on room air. 1108 00:29 Han Bowens MD is Referral Physician. cp 00:58 IV discontinued, intact, bleeding controlled, No redness/swelling at site. Pressure kd3 dressing applied. Administered Medications: No medications were administered Medication: 08/05 23:21 VIS not applicable for this client. kd3 Outcome: 08/06 00:30 Discharge ordered by . cp 00:58 Discharged to home ambulatory. kd3 00:58 Condition: stable 00:58 Discharge instructions given to patient, family, Instructed on discharge instructions, follow up and referral plans. Demonstrated understanding of instructions, follow-up care. 00:58 Patient left the ED. kd3 Signatures: Dispatcher [employer] EDMS Manuel Nguyen PA PA cp Justin Rios, RN RN jb4 Stacey Liao Domo Plummer MD MD sp3 Machelle Simmons RN RN kd3
[2022-08-06 01:16] VITALS: BP 118/83; O2SAT 100
[2022-08-06 01:17] VITALS: TEMP 97.9
--- NOTE | 2022-08-06 11:59 | RAD REPORT ---
EXAM DESCRIPTION: RAD - Chest Single View - 08/05/2022 11:02 pm CLINICAL HISTORY: 7 years Male, PALPITATIONS COMPARISON: Chest radiograph dated 07/29/2022 FINDINGS: No focal lung consolidation. No pleural effusion. No pneumothorax. Cardiomediastinal silhouette is within normal limits. No acute osseous abnormality. IMPRESSION: No acute cardiopulmonary disease. Electronically signed by: Aries Hayes DO 08/05/2022 11:22 PM DIRECTOR OF CASINO MARKETING Due to temporary technical issues with the PACS/Fluency reporting system, reports are being signed by the in house radiologists without review as a courtesy to insure prompt reporting. The interpreting radiologist is fully responsible for the content of the report.
--- NOTE | 2022-08-06 13:55 | EKG ---
Test Date: 2022-08-05 Test Time: 22:33:07 Tobacco Conditioner: TALI MEASUREMENT RESULTS: Intervals: Rate: 65 NM: 202 QRSD: 84 QT: 388 QTc: 403 [place]: P: 64 NM: 202 QRS: 81 T: 67 INTERPRETIVE STATEMENTS: Normal sinus rhythm Normal ECG Compared to ECG 07/29/2022 15:13:01 First degree AV block no longer present Electronically Signed On 08-06-22 13:54:12 CUSTOMER SUPPORT REPRESENTATIVE by Charles Tracy
== END 2022-08-06 00:58 | disposition home or self-care (01) ==
LOC: ER 21:52
DX: R00.2 Palpitations (principal); N18.6 End stage renal disease; Z99.2 Dependence on renal dialysis; Z91.013 Allergy to seafood
CPT/HCPCS: 36415; 71045; 80048; 83735; 84484; 85025; 93005; 99284

== ENCOUNTER 2022-10-22 07:38 | Emergency (ER) | payer OTHER ==
--- OUTSIDE RECORDS SUMMARY | 2022-10-22 07:41 | XMS REPORT | Continuity of Care Document ---
:1965 Author Organization [facility] t Address [address] [place] [address] Dr. Mejia [address] [place] [id number] Care Team Providers Name Role Phone Pcp, Patient Does Not Have A Primary Care Physician [id number] ZULLY CHANG Attending Clinician Unavailable Zully Chang MD Attending Clinician Elidia Kat MD Attending Clinician [phone] Vtc-Lab Attending Clinician Unavailable Portable Canteen Operator, Transplant Attending Clinician Unavailable OWEN STONE Attending [...] Date Expiration Date S isidro LEWIS PLS [id number] 2018 00:00:00 HMO Problems Condition Condition Condition Status Onset Resolution Last Treating Co mments Source Name Details Category Date Date Treatment Clinician Date No known No known Disease Unive rs active active ity of problems problems [facility] Allergies, Adverse Reactions, Alerts Allergy Allergy Status [...] Source Exposure to 2022-03-17 2022-03-27 Not sure [facility] SARS-CoV-2 (event) 00:00:00 08:21:00 Medica l Branch Sex Assigned At [address] 1965 [facility] [place] 00:00:00 00:00:00 Medical Branch Smoking Status Start Date Stop Date Source Tobacco smoking consumption [facility] Medical unknown Branch Medications Ordered Filled Start Stop Current Ordering Indication Dosage Frequency Signature Comments Components Source Medication Medication Date Date Medication? Clinician (SIG) Name Name sevelamer Yes 800mg Take 800 Uni vers carbonate 6-29 mg by ity of ([place] 09:45: mouth. [place] ORAL) 34 Medical Branch metoprolol Yes Take by Univ ers succinate 6-29 mouth. ity of 25 mg CSpX 09:45: [place] 34 Medical Branch Procedures This patient has no known procedures. Encounters Start End Encounter Admission Attending Care Care Encounter Source Date/Time Date/Time Type Type Clinicians Facility Department ID 2022-04-19 2022-04-19 Outpatient R [facility] [id number] Univers 09:00:00 09:00:00 ZULLY ity o f [facility] 2022-04-10 2022-04-[address] [facility] [id number] Univers 00:00:00 00:00:00 Zully Bojorquez MULTISPEC 350.1.13.10 ity of IALTY 4.2.7.2.686 [facility] [id number] [facility] [address] [facility] 2022-04-10 2022-04-[address] [facility] [id number] Univers 00:00:00 00:00:00 Zully Bojorquez MULTISPEC 350.1.13.10 ity of [place]AL[place] 4.2.7.2.686 [facility] [id number] [facility] [address] [facility] 2022-04-08 2022-04-08 Committee Luciano [facility] 1.2.840.114 [id number] Univers 00:00:00 00:00:00 Review Elidia alegre MULTISPEC 350.1.13.10 ity of [place]AL[place] 4.2.7.2.686 [facility] [id number] [address] [facility] 2022-03-27 2022-03-27 Help Desk Support Vtc-Lab [facility] 1.2.840.114 [id number] Univers 13:00:00 13:15:00 Visit Zully Chang MULTISPEC 350.1.13 .10 ity of [place]AL[place] 4.2.7.2.[address] [place] [address] [id number] [facility] [address] [facility] 2022-03-27 2022-03-27 Outpatient R CHARLENE, [facility] [id number] Univers 13:00:00 13:00:00 ZULLY ity o f [facility] 2022-03-27 2022-03-27 Portable Canteen Operator Portable Canteen Operator, Transplant [facility] 1. [id number] [facility] 12:00:00 12:00:00 Visit Zully Chang MULTISPEC 350.1.13 .10 ity of [place]AL[place] 4.2.7.2.[address] [place] [id number] [facility] 2022-03-27 2022-03-27 Outpatient R OWEN STONE [facility] [id number] Univers 11:00:00 11:58:21 ity of [facility] 2022-03-27 2022-03-27 Private Investigator, Transplant Social [facility] 1.2.840.114 [id number] Univers 11:00:00 11:58:21 Management Zully Chang MULTISPEC 350.1 .13.10 ity of IAL[place] 4.2.7.2.686 [facility] [id number] [address] [facility] 2022-03-27 2022-03-27 Office Owen Stone [facility] 1.2.840.114 [id number] Univers 10:00:00 11:58:04 Visit Zully Chang MULTISPEC 350.1.13 .10 ity of [place]AL[place] 4.2.7.2.686 [facility] [id number] [facility] [address] [facility] 2022-03-27 2022-03-27 Nurse Renal, Transplant Class [facility] 1. [id number] [facility] 08:30:00 09:15:00 Visit Zully Chang MULTISPEC 350.1.13 .10 ity of IAL[place] 4.2.7.2.686 [facility] [id number] [facility] [address] [facility] 2019-08-19 2019-08-19 Emergency E [facility] [id number] [facility] 12:32:00 12:32:00 2019-08-11 2019-08-11 Emergency E ELIUD MAY [facility] [id number] [facility] [place] 07:59:00 09:20:00 [facility] 2019-06-22 2019-06-22 [id number] 07:20:00 07:20:00 2019-05-26 2019-05-26 Outpatient [facility]IE MHIE [id number] [facility] 15:00:00 15:00:00 08 [facility] 2019-05-26 2019-05-26 Outpatient MHIE MHIE [id number] [facility] 15:00:00 15:00:00 08 [facility] 2018-08-26 2018-08-26 Outpatient MHIE MHIE [id number] [facility] 11:30:00 11:30:00 07 [facility] 2018-08-26 2018-08-26 Outpatient MHIE MHIE [id number] [facility] 11:30:00 11:30:00 07 gayle Ashton 2018-08-25 2018-08-25 Outpatient MHIE MHIE [id number] [facility] 14:00:00 14:00:00 06 [facility] 2018-08-25 2018-08-25 Outpatient MHIE MHIE [id number] [facility] 14:00:00 14:00:00 06 gayle GrossmanAshton 2018-04-14 2018-04-14 Outpatient MHIE MHIE [id number] 10:00:00 10:00:00 05 gayle Ashton 2018-04-14 2018-04-14 Outpatient MHIE MHIE [id number] [facility] 10:00:00 10:00:00 05 l Momo 2018-03-03 2018-03-04 Outpatient Elizabeth BARFIELD [facility] TELE [id number] [place] 15:47:00 12:01:[facility] 2018-02-25 2018-02-25 Outpatient MHIE MHIE [id number] [facility] 14:30:00 14:30:00 04 l Ashton 2018-02-25 2018-02-25 Outpatient MHIE MHIE [id number] [facility] 14:30:00 14:30:00 04 l Momo 2017-09-01 2017-09-01 Outpatient MHIE MHIE [id number] 09:15:00 09:15:00 03 l Momo 2017-09-01 2017-09-01 Outpatient MHIE MHIE [id number] [facility] 09:15:00 09:15:00 03 gayle Barr 2017-05-07 2017-05-07 Outpatient MHIE MHIE [id number] [facility] 10:30:00 10:30:00 02 l Momo 2017-05-07 2017-05-07 Outpatient MHIE MHIE [id number] 10:30:00 10:30:00 02 l Momo 2017-04-25 2017-04-25 Outpatient MHIE MHIE [id number] [facility] 14:45:00 14:45:00 01 l Momo 2017-04-25 2017-04-25 Outpatient MHIE MHIE [id number] [facility] 14:45:00 14:45:00 01 l Momo 2017-03-07 2017-03-07 Outpatient MHIE MHIE [id number] [facility] 10:30:00 10:30:00 00 l Ashton 2017-03-07 2017-03-07 Outpatient MHIE MHIE [id number] [facility] 10:30:00 10:30:00 00 gayle Barr Results Test Description Test Time Test Comments Results Result Comments Source BRAIN NATRIURETIC PROTEIN 2019-08-11 08:55:00 Test Item Value Reference Range Interpretation Comme nts proBNP (test code = PBNP) 750 pg/mL 0-125 H COMPREHENSIVE METABOLIC [id number] 08:55:00 Test Item Value Reference Range Interpretation [...] (test code = 31A) 15 IU/L <=78 [id number] 08:55:00 Test Item Value Reference Range Interpretation Comments MAGNESIUM (test code = 48A) 2.6 mg/dL 1.8-2.4 H PHOSPHORUS (P04)2019-08-11 08:55:00 Test Item Value Reference Range Interpretation Comments PHOSPHORUS (test code = 43D) 7.8 mg/dL 2.7-4.6 H TROPONIN [id number] 08:50:00 Test Item Value Reference Range Interpretation Comments TROPONIN I (test code = A84) <0.015 ng/mL 0.000-0.045 PRO TIME AND [id number] 08:43:00 Test Item Value Reference Range Interpretation [...] Order Code is ANTI-XA CT HEAD W/O [id number] 08:36:37CT brain without contrastLocation code: [id number] HISTORY: Dizziness COMPARISON: 03/03/18TECHNIQUE:Routine unenhanced axial imaging [...] = RBCMOR) NORMAL XR CHEST 1 VIEW [id number] 08:28:57Portable AP chest, 1 viewLocation Code: [id number] HISTORY: DizzinessCOMPARISON: 03/03/18COMMENT: The lungs are clear and well inflated. The costophrenic angles are sharp. Thecardiomediastinal silhouette is unremarkable. The bones are intact.IMPRESSION: Stable chest with no acute abnormalityURINALYSIS WITH [id number] 06:31:00 Test Item Value Reference Range Interpretation [...] code = USPERM) /HPF NONE BASIC METABOLIC [id number] 04:20:00 Test Item Value Reference Range Interpretation [...] = 09D) 7.8 mg/dL 8.3-9.5 L CARDIAC [id number] 04:14:00 Test Item Value Reference Range Interpretation [...] MORPH (test code = RBCMOR) NORMAL CARDIAC [id number] 21:34:00 Test Item Value Reference Range Interpretation Comments TROPONIN I (test code = A84) <0.015 ng/mL 0.000-0.045 CKMB (test code = A49) 1.3 ng/mL <=3.6 CPK (test code = 32A) 50 IU/L 39-308 U/S CAROTID COLOR DOPPLER [id number] 21:13:04Examination: Bilateral carotid Doppler ultrasoundLocation code: C0Qpjpncnwle: NoneTechnique:Clinicalhistory is remarkable for dizziness, giddiness. Real-time [...] present, no hemodynamicallysignificant stenosis identified.CT HEAD W/O [id number] 14:56:12CT Brain without contrast.Location code:C3YQZEGVGX HISTORY: [id number]: Chest painComparison: NoneTechnique: Routine unenhanced CT brain [...] acuteintracranial abnormality. Old right thalamic infarct.AMYLASE AND [id number] 14:42:00 Test Item Value Reference Range Interpretation Comments AMYLASE (test code = 10A) 68 U/L 28-100 LIPASE (test code = 60A) 130 IU/L 73-393 COMPREHENSIVE METABOLIC [id number] 14:42:00 Test Item Value Reference Range Interpretation [...] 31A) 23 IU/L <=78 PRO TIME AND [id number] 14:41:00 Test Item Value Reference Range Interpretation [...] Code is ANTI-XA XR CHEST 1 VIEW [id number] 14:38:47EXAMINATION: XR CHEST 1 VIEW PORTABLE.LOCATION: D4.HISTORY: Chest pain, dizziness.COMPARISON: None.FI NDINGS:Examination is limited due to portable technique, patient body habitus and lowlung volumes.Cardiac silhouette/Mediastinal contour: Prominence of cardiac silhouette. Lungs: No focal consolidation. No large pleural effusion. Pulmonary vascularcongestion.Osseous Structures: Mild degenerative changes of thoracic spine.IMPRESSION: Limited study, pulmonary vascular congestion.DRUGS OF [id number] 14:36:00 Test Item Value Reference Range Interpretation [...]
[2022-10-22] MEDS ORDERED: HYDROCODONE/APAP 5/325 MG TAB ONE (08:12)
[2022-10-22 08:45] LABS: Urine Blood 2+ (Negative); Urine Glucose Trace (Negative); Urine Protein 3+ (Negative); Urine pH 8.5 (5.0-7.0)
[2022-10-22 08:55] LABS: Urine Bacteria None Seen /HPF (<20); Urine Mucus Slight /HPF (None Seen); Urine RBC >50 /HPF (None Seen)
--- NOTE | 2022-10-22 09:07 | ER ---
Nurse's Notes [facility] Name: Ben Otto Age: 57 yrs Sex: Male : 1965 Arrival Date: 10/22/2022 Time: 07:46 Bed 7 Private MD: Diagnosis: Low back pain;Essential (primary) hypertension;Hematuria, unspecified Presentation: 10/22 07:46 Chief complaint: EMS states: Right low back pain, non-radiating, increased pain "when I jl7 try to yawn.". Coronavirus screen: Vaccine status: Patient reports receiving the 2nd dose of the covid vaccine. At this time, the client does not indicate any symptoms associated with coronavirus-19. Ebola Screen: No symptoms or risks identified at this time. Initial Sepsis Screen: Does the patient meet any 2 criteria? No. Patient's initial sepsis screen is negative. Does the patient have a suspected source of infection? No. Patient's initial sepsis screen is negative. Risk Assessment: Do you want to hurt yourself or someone else? Patient reports no desire to harm self or others. Onset of symptoms is unknown. Care prior to arrival: None. 07:46 Method Of Arrival: EMS: [facility] jl7 07:46 Acuity: JEREMY 4 jl7 Triage Assessment: 07:48 General: Appears in no apparent distress. uncomfortable, Behavior is calm, cooperative, jl7 appropriate for age. Pain: Complains of pain in right low back Pain currently is 6 out of 10 on a pain scale. Historical: - Allergies: 07:48 SHELLFISH; jl7 - Home Meds: 07:48 metoprolol succinate 25 mg oral Tb24 [Active]; jl7 - PMHx: 07:48 chronic immune disease; CVA; Dialysis; M-W-F; End stage renal disease; Hypertensive jl7 disorder; - PSHx: 07:48 Left upper arm fistula; jl7 - Immunization history:: Client reports receiving the 2nd dose of the Covid vaccine. - Social history:: Smoking status: Patient denies any tobacco usage or history of. Screenin:16 [facility] ED Fall Risk Assessment (Adult) History of falling in the last 3 months, ph including since admission No falls in past 3 months (0 pts) Confusion or Disorientation No (0 pts) Intoxicated or Sedated No (0 pts) Impaired Gait Yes (1 pt) Mobility Assist Device Used Yes (1 pt) Altered Elimination No (0 pt). Abuse screen: Denies threats or abuse. Denies injuries from another. Nutritional screening: No deficits noted. Tuberculosis screening: No symptoms or risk factors identified. Assessment: 08:22 General: Appears in no apparent distress. comfortable, Behavior is calm, cooperative, ph appropriate for age, Denies fever, feeling ill. Pain: Complains of pain in right low back. Neuro: Level of Consciousness is awake, alert, obeys commands, Oriented to person, place, time, situation. Cardiovascular: Capillary refill < 3 seconds in bilateral fingers Patient's skin is warm and dry. Respiratory: Airway is patent Respiratory effort is even, unlabored. : Reports pain in right in lower back. Derm: Skin is pink, warm \\T\\ dry. Musculoskeletal: Circulation, motion, and sensation intact. Range of motion: intact in all extremities. Vital Signs: 07:46 BP 147 / 97; Pulse 67; Resp 17; Temp 98.3; Pulse Ox 100% ; Weight 81.65 kg; Height 5 jl7 ft. 7 in. (170.18 cm); Pain 6/10; 09:28 BP 132 / 84; Pulse 68; Resp 18; Temp 97.9; Pulse Ox 99% on R/A; ph 07:46 Body Mass Index 28.19 (81.65 kg, 170.18 cm) jl7 ED Course: 07:46 Patient arrived in ED. jl7 07:46 Cristal Judd, RN is Primary Nurse. ph 07:48 Triage completed. jl7 07:48 Arm band placed on right wrist. jl7 07:49 Jaxson Alba DO is Attending Physician. ms3 08:17 Patient has correct armband on for positive identification. Bed in low position. Call ph light in reach. Side rails up X 1. Pulse ox on. NIBP on. Door closed. Noise minimized. Warm blanket given. 09:28 No provider procedures requiring assistance completed. Patient did not have IV access ph during this emergency room visit. Administered Medications: 08:17 Drug: HYDROcodone-acetaminophen 5 mg-325 mg 1 tabs Route: PO; ph 09:28 Follow up: Response: No adverse reaction; Pain is decreased; RASS: Alert and Calm (0) ph Medication: 08:17 VIS not applicable for this client. ph Outcome: 09:07 Discharge ordered by . ms3 09:28 Discharged to home ambulatory, with family. ph 09:28 Condition: good 09:28 Discharge instructions given to patient, Instructed on discharge instructions, follow up and referral plans. medication usage, Demonstrated understanding of instructions, follow-up care, medications, Prescriptions given X 1. 09:33 Patient left the ED. ph Signatures: Cristal Judd RN RN Jimmy Durham RN RN jl7 Jaxson Alba DO DO ms3
--- NOTE | 2022-10-22 09:07 | EDPHYS ---
Physician Documentation [facility] Name: Ben Otto Age: 57 yrs Sex: Male : 1965 Arrival Date: 10/22/2022 Time: 07:46 Bed 7 Private MD: ED Physician Jaxson Alba HPI: 10/22 09:10 This 57 yrs old Male presents to ER via EMS with complaints of Low Back Pain. ms3 09:10 57-year-old male with past medical history of stroke, end-stage renal disease presents ms3 for right-sided low back pain. Patient states he feels like he needs to pop his back. Patient denies fevers, chills, nausea, vomiting, bowel or bladder incontinence.. Historical: - Allergies: 07:48 SHELLFISH; jl7 - Home Meds: 07:48 metoprolol succinate 25 mg oral Tb24 [Active]; jl7 - PMHx: 07:48 chronic immune disease; CVA; Dialysis; M-W-F; End stage renal disease; Hypertensive jl7 disorder; - PSHx: 07:48 Left upper arm fistula; jl7 - Immunization history:: Client reports receiving the 2nd dose of the Covid vaccine. - Social history:: Smoking status: Patient denies any tobacco usage or history of. ROS: 09:10 Constitutional: Negative for fever, and chills. Neck: Negative for injury, pain, and ms3 swelling, Cardiovascular: Negative for chest pain, and palpitations. Respiratory: Negative for shortness of breath, cough, wheezing, and pleuritic chest pain, Abdomen/GI: Negative for abdominal pain, nausea, vomiting, diarrhea, and constipation. 09:10 Back: Positive for Right sided back pain. 09:10 All other systems are negative. Exam: 09:10 Constitutional: This is a well developed, well nourished patient who is awake, alert, ms3 and in no acute distress. Neck: Trachea midline, no cervical lymphadenopathy. Supple, full range of motion without nuchal rigidity, or vertebral point tenderness. No Meningismus. Chest/axilla: Normal chest wall appearance and motion. Nontender with no deformity. Cardiovascular: Regular rate and rhythm with a normal S1 and S2. No gallops, murmurs, or rubs. Normal PMI, no JVD. No pulse deficits. Respiratory: Lungs have equal breath sounds bilaterally, clear to auscultation and percussion. No rales, rhonchi or wheezes noted. No increased work of breathing, no retractions or nasal flaring. Abdomen/GI: Soft, non-tender, with normal bowel sounds. No distension or tympany. No guarding or rebound. No evidence of tenderness throughout. 09:10 Skin: Warm, dry with normal turgor. Normal color with no rashes, no lesions, and no evidence of cellulitis. Neuro: Awake and alert, GCS 15, oriented to person, place, time, and situation. Cranial nerves II-XII grossly intact. Motor strength 5/5 in all extremities. Sensory grossly intact. Cerebellar exam normal. Normal gait. 09:10 Back: pain, that is mild, ROM is normal, normal spinal alignment noted, vertebral tenderness, is not appreciated, muscle spasm. Vital Signs: 07:46 BP 147 / 97; Pulse 67; Resp 17; Temp 98.3; Pulse Ox 100% ; Weight 81.65 kg; Height 5 jl7 ft. 7 in. (170.18 cm); Pain 6/10; 09:28 BP 132 / 84; Pulse 68; Resp 18; Temp 97.9; Pulse Ox 99% on R/A; ph 07:46 Body Mass Index 28.19 (81.65 kg, 170.18 cm) jl7 MDM: 07:49 Patient medically screened. ms3 09:10 Differential diagnosis: arthritis, strain, UTI, Muscle spasm. Data reviewed: vital ms3 signs, nurses notes, lab test result(s), and as a result, I will discharge patient. Consideration of Admission/Observation Escalation of care including admission/observation considered. No emergent medical condition necessitating admission found at this time. I considered the following discharge prescriptions or medication management in the emergency department Prescription for Flexeril given. Test considered but Not performed: X-ray: Patient without history of trauma. Historians other than the Patient: EMS: [facility]. Counseling: I had a detailed discussion with the patient and/or guardian regarding: the historical points, exam findings, and any diagnostic results supporting the discharge/admit diagnosis, lab results, the need for outpatient follow up, to return to the emergency department if symptoms worsen or persist or if there are any questions or concerns that arise at home. ED course: Discussed urinalysis and hematuria with patient. Patient to follow-up with his primary care physician and 2 to 3 days. Patient understands and agrees with plan. All questions were answered. Return precautions discussed include worsening symptoms, or any other concerns.. 10/22 07:50 Order name: Urine Microscopic Only; Complete Time: 09:05 ms3 10/22 08:45 Order name: Urine Dipstick-Ancillary; Complete Time: 09:05 EDMS 10/22 07:50 Order name: Urine Dipstick-Ancillary (obtain specimen); Complete Time: 08:44 ms3 Administered Medications: 08:17 Drug: HYDROcodone-acetaminophen 5 mg-325 mg 1 tabs Route: PO; ph 09:28 Follow up: Response: No adverse reaction; Pain is decreased; RASS: Alert and Calm (0) ph Disposition Summary: 10/22/22 09:07 Discharge Ordered Location: Home ms3 Condition: Stable ms3 Diagnosis - Low back pain ms3 - Essential (primary) hypertension ms3 - Hematuria, unspecified ms3 Followup: ms3 - With: Private Physician - When: 2 - 3 days - Reason: Recheck today's complaints Discharge Instructions: - Discharge Summary Sheet ms3 - Hematuria, Adult ms3 - Hypertension, Adult ms3 - Musculoskeletal Pain ms3 Forms: - Medication Reconciliation Form ms3 - Thank You Letter ms3 - Antibiotic Education ms3 - Prescription Opioid Use ms3 Prescriptions: - Cyclobenzaprine 5 mg Oral Tablet - take 1 tablet by ORAL route 2 times per day As needed; 15 tablet; Refills: 0, ms3 Product Selection Permitted Signatures: Dispatcher [employer] Cristal Mcmahan RN RN ph Jimmy Durham RN RN jl7 Jaxson Alba DO DO ms3
[2022-10-22 09:39] VITALS: BP 132/84; TEMP 97.9; O2SAT 99
== END 2022-10-22 09:33 | disposition home or self-care (01) ==
LOC: ER 07:38
DX: M54.50 Low back pain, unspecified (principal); R31.9 Hematuria, unspecified; I12.0 Hypertensive chronic kidney disease with stage 5 chronic kidney disease or end stage renal disease; N18.6 End stage renal disease; Z99.2 Dependence on renal dialysis; Z91.013 Allergy to seafood
CPT/HCPCS: 81003; 81015; 99284

== ENCOUNTER 2022-11-19 12:42 | Observation (INO) | payer OTHER ==
--- OUTSIDE RECORDS SUMMARY | 2022-11-19 12:45 | XMS REPORT | Continuity of Care Document ---
:1965 Author Organization [facility] t Address [address] [place] [address] Dr. Mejia [address] [place] [id number] Care Team Providers Name Role Phone Pcp, Patient Does Not Have A Primary Care Physician [id number] ZULLY CHANG Attending Clinician Unavailable Zully Chang MD Attending Clinician Elidia Kat MD Attending Clinician [phone] Vtc-Lab Attending Clinician Unavailable Respiratory Technician, Transplant Attending Clinician Unavailable OWEN STONE Attending [...] Date Expiration Date S isidro LEWIS PLS [id number] 2018 00:00:00 HMO Problems Condition Condition Condition Status Onset Resolution Last Treating Co mments Source Name Details Category Date Date Treatment Clinician Date No known No known Disease Unive rs active active ity of problems problems [facility] Allergies, Adverse Reactions, Alerts Allergy Allergy Status [...] Source Exposure to 2022-03-17 2022-03-27 Not sure [facility] SARS-CoV-2 (event) 00:00:00 08:21:00 Medica l Branch Sex Assigned At [birth year] [facility] [place] 00:00:00 00:00:00 Medical Branch Smoking Status Start Date Stop Date Source Tobacco smoking consumption [facility] Medical unknown Branch Medications Ordered Filled Start Stop Current Ordering Indication Dosage Frequency Signature Comments Components Source Medication Medication Date Date Medication? Clinician (SIG) Name Name sevelamer Yes 800mg Take 800 Uni vers carbonate 6-29 mg by ity of ([place] 09:45: mouth. [place] ORAL) 34 Medical Branch metoprolol Yes Take by Univ ers succinate 6-29 mouth. ity of 25 mg CSpX 09:45: [place] 34 Medical Branch Procedures This patient has no known procedures. Encounters Start End Encounter Admission Attending Care Care Encounter Source Date/Time Date/Time Type Type Clinicians Facility Department ID 2022-04-19 2022-04-19 Outpatient R [facility] [id number] Univers 09:00:00 09:00:00 ZULLY ity o f [facility] 2022-04-10 2022-04-10 Telephone [facility] [id number] Univers 00:00:00 00:00:00 Zully Bojorquez MULTISPEC 350.1.13.10 ity of IALTY 4.2.7.2.686 [facility] [id number] [facility] [address] [facility] 2022-04-10 2022-04-10 Telephone [facility] [id number] Univers 00:00:00 00:00:00 Zully Bojorquez MULTISPEC 350.1.13.10 ity of IAL[place] 4.2.7.2.686 [facility] [id number] [facility] [address] [place] [facility] 2022-04-08 2022-04-08 Committee Luciano [facility] [id number] Univers 00:00:00 00:00:00 Review Elidia alegre MULTISPEC 350.1.13.10 ity of IAL[place] 4.2.7.2.686 [facility] [id number] [address] [facility] 2022-03-27 2022-03-27 Advertising Operations Coordinator Vtc-Lab [facility] [id number] Univers 13:00:00 13:15:00 Visit Zully Chang MULTISPEC 350.1.13 .10 ity of [place]AL[place] 4.2.7.2.[address] [place] [address] [id number] [facility] [address] [place] [facility] 2022-03-27 2022-03-27 Outpatient R CHARLENE, [facility] [id number] Univers 13:00:00 13:00:00 ZULLY ity o f [facility] 2022-03-27 2022-03-27 Respiratory Technician Respiratory Technician, Transplant [facility] 1. 2.840.114 [id number] [facility] 12:00:00 12:00:00 Visit Zully Chang MULTISPEC 350.1.13 .10 ity of [place]AL[place] 4.2.7.2.[address] [place] [id number] [facility] 2022-03-27 2022-03-27 Outpatient R OWEN STONE [facility] [id number] Univers 11:00:00 11:58:21 ity of [facility] 2022-03-27 2022-03-27 Lockstitch Front Edge Tape Sewer, Transplant Social [facility] 1.2.840.114 [id number] Univers 11:00:00 11:58:21 Management Zully Chang MULTISPEC 350.1 .13.10 ity of [place]AL[place] 4.2.7.2.686 [facility] [id number] [address] [facility] 2022-03-27 2022-03-27 Office Owen Stone [facility] [id number] Univers 10:00:00 11:58:04 Visit Zully Chang MULTISPEC 350.1.13 .10 ity of IAL[place] 4.2.7.2.686 [facility] [id number] [facility] [address] [facility] 2022-03-27 2022-03-27 Nurse Renal, Transplant Class [facility] 1. 2.840.114 [id number] [facility] 08:30:00 09:15:00 Visit Zully Chang MULTISPEC 350.1.13 .10 ity of IAL[place] 4.2.7.2.686 [facility] [id number] [facility] [address] [facility] 2019-08-19 2019-08-19 Emergency E [facility] [id number] [facility] 12:32:00 12:32:00 2019-08-11 2019-08-11 Emergency E ELIUD MAY [facility] [id number] [facility] 07:59:00 09:20:00 [facility] 2019-06-22 2019-06-22 [id number] 07:20:00 07:20:00 2019-05-26 2019-05-26 Outpatient MHIE MHIE [id number] [facility] 15:00:00 15:00:00 08 [facility] 2019-05-26 2019-05-26 Outpatient MHIE MHIE [id number] [facility] 15:00:00 15:00:00 08 [facility] 2018-08-26 2018-08-26 Outpatient MHIE MHIE [id number] [facility] 11:30:00 11:30:00 07 [facility] 2018-08-26 2018-08-26 Outpatient MHIE MHIE [id number] [facility] 11:30:00 11:30:00 07 gayle Ossian 2018-08-25 2018-08-25 Outpatient MHIE MHIE [id number] [facility] 14:00:00 14:00:00 06 [facility] 2018-08-25 2018-08-25 Outpatient MHIE MHIE [id number] [facility] 14:00:00 14:00:00 06 gayle GrossmanMomo 2018-04-14 2018-04-14 Outpatient MHIE MHIE [id number] [facility] 10:00:00 10:00:00 05 gayle Ossian 2018-04-14 2018-04-14 Outpatient MHIE MHIE [id number] [facility] 10:00:00 10:00:00 05 l Momo 2018-03-03 2018-03-04 Outpatient Elizabeth [facility] [id number] [place] 15:47:00 12:01:[facility] 2018-02-25 2018-02-25 Outpatient MHIE MHIE [id number] [facility] 14:30:00 14:30:00 04 l Momo 2018-02-25 2018-02-25 Outpatient MHIE MHIE [id number] [facility] 14:30:00 14:30:00 04 l Momo 2017-09-01 2017-09-01 Outpatient MHIE MHIE [id number] [facility] 09:15:00 09:15:00 03 l Momo 2017-09-01 2017-09-01 Outpatient MHIE MHIE [id number] [facility] 09:15:00 09:15:00 03 gayle Barr 2017-05-07 2017-05-07 Outpatient MHIE MHIE [id number] [facility] 10:30:00 10:30:00 02 l Momo 2017-05-07 2017-05-07 Outpatient MHIE MHIE [id number] [facility] 10:30:00 10:30:00 02 l Ossian 2017-04-25 2017-04-25 Outpatient MHIE MHIE [id number] [facility] 14:45:00 14:45:00 01 l Momo 2017-04-25 2017-04-25 Outpatient MHIE MHIE [id number] [facility] 14:45:00 14:45:00 01 l Momo 2017-03-07 2017-03-07 Outpatient MHIE MHIE [id number] [facility] 10:30:00 10:30:00 00 l Ossian 2017-03-07 2017-03-07 Outpatient MHIE MHIE [id number] [facility] 10:30:00 10:30:00 00 gayle Barr Results Test Description Test Time Test Comments Results Result Comments Source BRAIN NATRIURETIC PROTEIN 2019-08-11 08:55:00 Test Item Value Reference Range Interpretation Comme nts proBNP (test code = PBNP) 750 pg/mL 0-125 H COMPREHENSIVE METABOLIC [id number] 08:55:00 Test Item Value Reference Range Interpretation [...] (test code = 31A) 15 IU/L <=78 [id number] 08:55:00 Test Item Value Reference Range Interpretation Comments MAGNESIUM (test code = 48A) 2.6 mg/dL 1.8-2.4 H PHOSPHORUS (P04)2019-08-11 08:55:00 Test Item Value Reference Range Interpretation Comments PHOSPHORUS (test code = 43D) 7.8 mg/dL 2.7-4.6 H TROPONIN [id number] 08:50:00 Test Item Value Reference Range Interpretation Comments TROPONIN I (test code = A84) <0.015 ng/mL 0.000-0.045 PRO TIME AND [id number] 08:43:00 Test Item Value Reference Range Interpretation [...] Order Code is ANTI-XA CT HEAD W/O [id number] 08:36:37CT brain without contrastLocation code: [id number] HISTORY: Dizziness COMPARISON: 03/03/18TECHNIQUE:Routine unenhanced axial imaging [...] = RBCMOR) NORMAL XR CHEST 1 VIEW [id number] 08:28:57Portable AP chest, 1 viewLocation Code: [id number] HISTORY: DizzinessCOMPARISON: 03/03/18COMMENT: The lungs are clear and well inflated. The costophrenic angles are sharp. Thecardiomediastinal silhouette is unremarkable. The bones are intact.IMPRESSION: Stable chest with no acute abnormalityURINALYSIS WITH [id number] 06:31:00 Test Item Value Reference Range Interpretation [...] code = USPERM) /HPF NONE BASIC METABOLIC [id number] 04:20:00 Test Item Value Reference Range Interpretation [...] = 09D) 7.8 mg/dL 8.3-9.5 L CARDIAC [id number] 04:14:00 Test Item Value Reference Range Interpretation [...] MORPH (test code = RBCMOR) NORMAL CARDIAC [id number] 21:34:00 Test Item Value Reference Range Interpretation Comments TROPONIN I (test code = A84) <0.015 ng/mL 0.000-0.045 CKMB (test code = A49) 1.3 ng/mL <=3.6 CPK (test code = 32A) 50 IU/L 39-308 U/S CAROTID COLOR DOPPLER [id number] 21:13:04Examination: Bilateral carotid Doppler ultrasoundLocation code: O2Mjcjpfbnkq: NoneTechnique:Clinicalhistory is remarkable for dizziness, giddiness. Real-time [...] present, no hemodynamicallysignificant stenosis identified.CT HEAD W/O [id number] 14:56:12CT Brain without contrast.Location code:A6YOYMODYW HISTORY: [id number]: Chest painComparison: NoneTechnique: Routine unenhanced CT brain [...] acuteintracranial abnormality. Old right thalamic infarct.AMYLASE AND [id number] 14:42:00 Test Item Value Reference Range Interpretation Comments AMYLASE (test code = 10A) 68 U/L 28-100 LIPASE (test code = 60A) 130 IU/L 73-393 COMPREHENSIVE METABOLIC [id number] 14:42:00 Test Item Value Reference Range Interpretation [...] 31A) 23 IU/L <=78 PRO TIME AND [id number] 14:41:00 Test Item Value Reference Range Interpretation [...] Code is ANTI-XA XR CHEST 1 VIEW [id number] 14:38:47EXAMINATION: XR CHEST 1 VIEW PORTABLE.LOCATION: D4.HISTORY: Chest pain, dizziness.COMPARISON: None.FI NDINGS:Examination is limited due to portable technique, patient body habitus and lowlung volumes.Cardiac silhouette/Mediastinal contour: Prominence of cardiac silhouette. Lungs: No focal consolidation. No large pleural effusion. Pulmonary vascularcongestion.Osseous Structures: Mild degenerative changes of thoracic spine.IMPRESSION: Limited study, pulmonary vascular congestion.DRUGS OF [id number] 14:36:00 Test Item Value Reference Range Interpretation [...]
--- NOTE | 2022-11-19 13:40 | RAD REPORT ---
[facility]19 pm CLINICAL HISTORY: PALPITATIONS COMPARISON: Chest Single View dated 08/05/2022; Chest Single View dated 07/29/2022; Chest Single View dated 07/24/2022; Chest Single View dated 11/20/2021 TECHNIQUE: Portable AP view of the chest. FINDINGS: The lungs are clear. No pneumothorax or effusion. Cardiac silhouette is at the upper limit of normal in size. Mediastinal contours are unchanged. . IMPRESSION: No acute cardiopulmonary process.
[2022-11-19 13:41] LABS: Absolute Lymphocytes (CBC) 1.1 K/uL (0.7-4.9); Hematocrit 39.8 % (39.6-49.0); Lymphocytes % 15.9 % (15.3-44.8); MCV 101.5 fL (80-100); MPV 8.2 fL (7.6-11.3); RBC Red Blood Cell Count 3.93 M/uL (4.33-5.43)
[2022-11-19 13:43] LABS: Protime INR 1.1
[2022-11-19 14:04] LABS: Albumin 3.8 g/dL (3.4-5.0); Bilirubin Direct 0.1 mg/dL (0-0.2); Bilirubin Total 0.3 mg/dL (0.2-1.0); Protein, Total 8.4 g/dL (6.4-8.2); Troponin High Sensitivity 15.1 pg/mL (<58.9)
--- NOTE | 2022-11-19 14:27 | P.CNS ---
Date of Consult: 11/19/22 Reason for Consult: Fluid overload Chief Complaint: afib with RVR History of Present Illness: A 53 Y. woman with PMHx of ESRD on HD MWF via lt upper Arm AVF , Afib , CHF , and HTN Pt sent from dialysis unit for Afib with RVR , pt HR was up to 180s , pt noticed to have uncontrolled HR during dialysis, , pt missed dialysis on Friday, presented today to his treatment , HR fluctuating during HD from 80-180 , last dialysis treatment was on Friday , pt sent for further evaluation ROS Head and Neck: No red eye. No ear pain. GI: denied nausea, voimiting or diarrhea : No polyuria. No dysuria. No hematuria. Respiratory: denied shortness of breath.or cough Cardiovascular:tachycardia , denied chest pain Endocrine: No polydipsia. Skin: No rash. Neuro: Has weakness. Wobbly gait. Musculoskeletal: Generalized fatigue. Physical exam General: Awake, NAD HEENT: Atraumatic, Normocephalic Neck: Supple, no elevated JVD Respiratory: rt basal rales Cardiovascular: No rubs, No murmurs Gastrointestinal: Soft and benign, Non-distended Musculoskeletal: No clubbing Integumentary: No warmth Neurological: Normal tone, Sensation intact Lymphatics: No axilla or inguinal lymphadenopathy Urinary: Other (no bladder distention) A/P # ESRD on HD MWF HD today then MWF Renal diet Monitor renal panel # Afib with RVR rate controlled now ont metoprolol will add amiodarone cardiology evaluation #Fluid overload HD as above # Anemia Monitor H/H # Renal osteodystrophy Monitor Ca & Phos # DM2 Mngt per primary team Total time spent 65 minutes including documentation, reviewing labs , placing orders and discussing plan of care with medical staff - Social History Smoking Status: Unknown if ever smoked Physical Examination Laboratory Data (last 24 hrs) 11/19/22 13:15: PT 12.1, INR 1.10 11/19/22 13:15: WBC 7.10, Hgb 13.5 L, Hct 39.8, Plt Count 228 11/19/22 13:15: Sodium 136, Potassium 4.0, BUN 30 H, Creatinine 6.18 H*, Glucose 92, Total Bilirubin 0.3, AST 9 L, ALT 13 L, Alkaline Phosphatase 99
--- NOTE | 2022-11-19 14:35 | ER ---
Nurse's Notes [facility] [address] Name: Ben Otto Age: 57 yrs Sex: Male : 1965 Arrival Date: 11/19/2022 Time: 12:46 Bed 24 Private MD: Diagnosis: Paroxysmal atrial fibrillation;End stage renal disease;Acute pulmonary edema Presentation: 11/19 12:50 Chief complaint: EMS states: EMS brought the patient from dialysis for change in heart sg5 rhythm from normal sinus to a-fib RVR. EMS reports patient converted in route to hospital. Coronavirus screen: Client denies travel out of the [place] in the last 14 days. At this time, the client does not indicate any symptoms associated with coronavirus-19. Ebola Screen: No symptoms or risks identified at this time. Initial Sepsis Screen: Does the patient meet any 2 criteria? No. Patient's initial sepsis screen is negative. Does the patient have a suspected source of infection? No. Patient's initial sepsis screen is negative. Risk Assessment: Do you want to hurt yourself or someone else? Patient reports no desire to harm self or others. Onset of symptoms was November 19, 2022. 12:50 Method Of Arrival: EMS: [facility] sg5 12:50 Acuity: JEREMY 3 sg5 Triage Assessment: 13:08 General: Appears in no apparent distress. comfortable, Behavior is calm, cooperative, sg5 appropriate for age. Pain: Denies pain. Neuro: No deficits noted. Level of Consciousness is awake, alert, obeys commands, Oriented to person, place, time, situation, Appropriate for age. Cardiovascular: Heart tones S1 S2 present Capillary refill < 3 seconds Rhythm is regular. Respiratory: No deficits noted. Airway is patent. Historical: - Allergies: 13:08 SHELLFISH; sg5 - Home Meds: 13:08 metoprolol succinate 25 mg Oral Tb24 [Active]; sg5 - PMHx: 13:08 chronic immune disease; CVA; Dialysis; M-W-F; Hypertensive disorder; End stage renal sg5 disease; - PSHx: 13:08 Left upper arm fistula; sg5 - Immunization history:: Adult Immunizations up to date. - Social history:: Smoking status: Patient/guardian denies using tobacco, but has a distant history of tobacco abuse. - Family history:: not pertinent. - Hospitalizations: : No recent hospitalization is reported. Screenin:10 [facility] ED Fall Risk Assessment (Adult) History of falling in the last 3 months, bp including since admission No falls in past 3 months (0 pts). Abuse screen: Denies threats or abuse. Denies injuries from another. Nutritional screening: No deficits noted. Tuberculosis screening: No symptoms or risk factors identified. Assessment: 13:10 General: SEE TRIAGE NOTE. bp 14:06 Reassessment: NEPHRO AT B/S. bp 15:38 Reassessment: No changes from previously documented assessment. Patient and/or family bp updated on plan of care and expected duration. Pain level reassessed. ADMIT INITIATED. 17:30 Reassessment: No changes from previously documented assessment. Patient and/or family bp updated on plan of care and expected duration. Pain level reassessed. Vital Signs: 12:50 BP 160 / 89; Pulse 83; Resp 18; Temp 97.6; Pulse Ox 98% on R/A; Weight 93 kg; Height 5 sg5 ft. 7 in. (170.18 cm); Pain 0/10; 14:06 BP 126 / 86; Pulse 71; Resp 12; Pulse Ox 100% ; bp 15:18 BP 139 / 91; Pulse 62; Resp 16; Pulse Ox 100% on R/A; Pain 0/10; sg5 16:00 BP 149 / 75; Pulse 61; Resp 13; Pulse Ox 100% ; bp 17:00 BP 155 / 90; Pulse 68; Resp 16; Pulse Ox 97% ; bp 18:00 BP 160 / 104; Pulse 64; Resp 13; Pulse Ox 100% ; bp 12:50 Body Mass Index 32.11 (93.00 kg, 170.18 cm) sg5 ED Course: 12:46 Patient arrived in ED. rn 12:46 John Fuller MD is Attending Physician. rn 12:54 Kiah Sahni, RN is Primary Nurse. ld1 12:54 Garth Lindquist, JOBY is Primary Nurse. bp 13:08 Triage completed. sg5 13:10 Patient has correct armband on for positive identification. Bed in low position. Call bp light in reach. Side rails up X2. 13:11 Arm band placed on right wrist. sg5 13:15 Inserted saline lock: 20 gauge in right antecubital area, using aseptic technique. sg5 Blood collected. 14:35 Rudi Mandel MD is Hospitalizing Provider. rn Administered Medications: No medications were administered Outcome: 14:35 Decision to Hospitalize by Provider. rn 22:57 Patient left the ED. 3 Signatures: John Fuller MD MD rn Peltier, Brian, RN RN Kiah Westbrook RN RN ld1 Elidia Judd RN RN 3 Nina Potter RN RN sg5
--- NOTE | 2022-11-19 14:36 | EDPHYS ---
Physician Documentation [facility] Name: Ben Otto Age: 57 yrs Sex: Male : 1965 Arrival Date: 11/19/2022 Time: 12:46 Bed 24 Private MD: ED Physician John Fuller HPI: 11/19 13:32 This 57 yrs old Male presents to ER via EMS with complaints of palpitations. rn 13:32 The patient presents with a history of heart racing. Onset: The symptoms/episode rn began/occurred this morning. Duration: The patient or guardian reports multiple episodes, that are intermittent. Modifying factors: The symptoms are aggravated by nothing. The symptoms are alleviated by nothing. Associated signs and symptoms: Pertinent negatives: syncope. Severity of symptoms: At their worst the symptoms were moderate in the emergency department the symptoms have improved. It is unknown whether or not the patient has had similar symptoms in the past. The patient has not recently seen a physician. 13:32 EMS reports sent from dialysis, dialysis not performed, for palpitations, HR up to rn 180s, intermittent, EMS reports 4 separate episodes of Afib with RVR on their monitor, didn't give anything, goes back to sinus after sometime. Pt arrives in sinus rhythm. . Historical: - Allergies: 13:08 SHELLFISH; sg5 - Home Meds: 13:08 metoprolol succinate 25 mg Oral Tb24 [Active]; sg5 - PMHx: 13:08 chronic immune disease; CVA; Dialysis; M-W-F; Hypertensive disorder; End stage renal sg5 disease; - PSHx: 13:08 Left upper arm fistula; sg5 - Immunization history:: Adult Immunizations up to date. - Social history:: Smoking status: Patient/guardian denies using tobacco, but has a distant history of tobacco abuse. - Family history:: not pertinent. - Hospitalizations: : No recent hospitalization is reported. ROS: 13:32 Constitutional: Negative for fever, chills, and weight loss, Eyes: Negative for injury, rn pain, redness, and discharge, Neck: Negative for injury, pain, and swelling, Cardiovascular: + palpitations Respiratory: Negative for shortness of breath, cough, wheezing, and pleuritic chest pain, Abdomen/GI: Negative for abdominal pain, nausea, vomiting, diarrhea, and constipation, MS/Extremity: Negative for injury and deformity, Skin: Negative for injury, rash, and discoloration, Neuro: Negative for headache, weakness, numbness, tingling, and seizure. Exam: 13:32 Constitutional: This is a well developed, well nourished patient who is awake, alert, rn and in no acute distress. Head/Face: Normocephalic, atraumatic. Cardiovascular: Regular rate, irregular rhythm Respiratory: Speaking full sentences, unlabored. No increased work of breathing, no retractions or nasal flaring. Abdomen/GI: soft, non-tender Skin: Warm, dry 13:34 ECG was reviewed by the Attending Physician. rn Vital Signs: 12:50 BP 160 / 89; Pulse 83; Resp 18; Temp 97.6; Pulse Ox 98% on R/A; Weight 93 kg; Height 5 sg5 ft. 7 in. (170.18 cm); Pain 0/10; 14:06 BP 126 / 86; Pulse 71; Resp 12; Pulse Ox 100% ; bp 15:18 BP 139 / 91; Pulse 62; Resp 16; Pulse Ox 100% on R/A; Pain 0/10; sg5 16:00 BP 149 / 75; Pulse 61; Resp 13; Pulse Ox 100% ; bp 17:00 BP 155 / 90; Pulse 68; Resp 16; Pulse Ox 97% ; bp 18:00 BP 160 / 104; Pulse 64; Resp 13; Pulse Ox 100% ; bp 12:50 Body Mass Index 32.11 (93.00 kg, 170.18 cm) sg5 MDM: 12:46 Patient medically screened. rn 13:35 Independent interpretation of the following test(s) in the Emergency Department EKG: rn See my EKG interpretation above. 14:32 Differential diagnosis: arrythmia, dehydration, stress disorder. Data reviewed: vital rn signs, nurses notes, lab test result(s), EKG, radiologic studies, plain films, and as a result, I will admit patient. 14:32 Consideration of Admission/Observation Patient was admitted/placed on observation. rn Escalation of care including admission/observation considered. I considered the following discharge prescriptions or medication management in the emergency department. Independent interpretation of the following test(s) in the Emergency Department X-Ray: My interpretation is CXR images neg for pneumonia/pneumothorax. Counseling: I had a detailed discussion with the patient and/or guardian regarding: the historical points, exam findings, and any diagnostic results supporting the discharge/admit diagnosis, lab results, radiology results, the need for further work-up and treatment in the hospital. Response to treatment: the patient's symptoms have markedly improved after treatment, and as a result, I will admit patient. ED course: Pt seen and evaluated by his appraisal analyst Dr. Parkinson, will order dialysis since not performed in clinic when admitted, will admit to Dr. Mandel for afib with RVR, currently in sinus rhythm. 14:32 Care significantly affected by the following chronic conditions: Hypertension, rn Congestive Heart Failure, Chronic Kidney Disease. 11/19 12:46 Order name: Basic Metabolic Panel rn 11/19 12:46 Order name: CBC with Diff rn 11/19 12:46 Order name: LFT's rn 11/19 12:46 Order name: NT PRO-BNP rn 11/19 12:46 Order name: PT-INR rn 11/19 12:46 Order name: Troponin HS rn 11/19 12:46 Order name: SARS RAPID rn 11/19 13:43 Order name: CBC with Automated Diff; Complete Time: 13:43 EDAZ 11/19 13:43 Order name: Protime (+INR); Complete Time: 13:56 EDAZ 11/19 14:06 Order name: Basic Metabolic Panel; Complete Time: 14:07 EDAZ 11/19 14:06 Order name: Liver (Hepatic) Function; Complete Time: 14:07 EDAZ 11/19 14:06 Order name: Troponin High Sensitivity; Complete Time: 14:07 EDAZ 11/19 14:06 Order name: NT PRO-BNP; Complete Time: 14:07 EDAZ 11/19 17:24 Order name: SARS-COV-2 Antigen Rapid EDAZ 11/19 12:46 Order name: XRAY Chest (1 view) rn 11/19 12:46 Order name: EKG; Complete Time: 12:47 rn 11/19 12:46 Order name: Cardiac monitoring; Complete Time: 12:52 rn 11/19 12:46 Order name: EKG - Nurse/Tech; Complete Time: 12:52 rn 11/19 12:46 Order name: IV Saline Lock; Complete Time: 13:24 rn 11/19 12:46 Order name: Labs collected and sent; Complete Time: 13:24 rn 11/19 12:46 Order name: O2 Per Protocol; Complete Time: 12:52 rn 11/19 12:46 Order name: O2 Sat Monitoring; Complete Time: 12:52 rn 11/19 13:40 Order name: RAD; Complete Time: 13:43 EDMS EC:34 Rate is 76 beats/min. Rhythm is regular. QRS [place] is Normal. ID interval is prolonged rn at 214 msec. QRS interval is normal. QT interval is normal. No Q waves. T waves are Normal. No ST changes noted. Clinical impression: NSR w/ Non-specific ST/T Changes and 1st degree heart block. Interpreted by me. Reviewed by me. Administered Medications: No medications were administered Disposition Summary: 11/19/22 14:35 Hospitalization Ordered Hospitalization Status: Observation rn Provider: Rudi Mandel rn Condition: Stable rn Problem: new rn Symptoms: have improved rn Bed/Room Type: Standard rn Location: Telemetry/MedSurg (observation)(11/19/22 21:42) Room Assignment: [facility](11/19/22 21:42) Diagnosis - Paroxysmal atrial fibrillation rn - End stage renal disease rn - Acute pulmonary edema rn Forms: - Medication Reconciliation Form rn - SBAR form rn Signatures: Dispatcher [employer] EDMS Guero Hargrove PA PA jmm Nieto, Roman, MD MD rn Garcia, Cindy RN RN Garth Chisholm RN RN Nina Ricketts, RN RN sg5 Corrections: (The following items were deleted from the chart) 18:33 14:35 Telemetry/MedSurg (observation) rn bp 18:33 14:35 rn bp 21:42 18:33 [facility] ER HOLD bp cg 21:42 18:33 ERHOLD- bp cg
--- NOTE | 2022-11-19 17:03 | P.HP ---
Certification for Inpatient Patient admitted to: Observation With expected LOS: <2 Midnights Patient will require the following post-hospital care: None Practitioner: I am a practitioner with admitting privileges, knowledge of patient current condition, hospital course, and medical plan of care. Services: Services provided to patient in accordance with Admission requirements found in Title 42 Section 412.3 of the Code of Federal Regulations Patient History Date of Service: 11/19/22 Primary Care Provider: Ministerio Reason for admission: afib with RVR History of Present Illness: Patient is a pleasant office patient. He has a history of hemiplegia, htn and dialysis. He has been treated for Atrial fib by Dr. Tracy. He had a negative work up. The patient was going to dialysis on examining his vitals he was found to be in atrial fib and was sent to the hospital rather than having dialysis. The patient stated that he had no symptoms, such as chest pain, sob or dizziness. He occasionally gets palpations at home. However they resolve within a few minutes. He is stable in the ER when I examined him Review of Systems 10-point ROS is otherwise unremarkable Physical Examination - Physical Exam General: Alert, In no apparent distress HEENT: Atraumatic, PERRLA, Mucous membr. moist/pink, EOMI, Sclerae nonicteric Neck: Supple, 2+ carotid pulse no bruit, No LAD, Without JVD or thyroid abnormality Respiratory: Clear to auscultation bilaterally, Normal air movement Cardiovascular: Regular rate/rhythm, Normal S1 S2 Gastrointestinal: Normal bowel sounds, No tenderness Musculoskeletal: No tenderness Integumentary: No rashes Neurological: Normal gait, Normal speech, Normal strength at 5/5 x4 extr, Normal tone, Normal affect Lymphatics: No axilla or inguinal lymphadenopathy - Studies Laboratory Data (last 24 hrs) 11/19/22 13:15: PT 12.1, INR 1.10 11/19/22 13:15: WBC 7.10, Hgb 13.5 L, Hct 39.8, Plt Count 228 11/19/22 13:15: Sodium 136, Potassium 4.0, BUN 30 H, Creatinine 6.18 H*, Glucose 92, Total Bilirubin 0.3, AST 9 L, ALT 13 L, Alkaline Phosphatase 99 Assessment and Plan - Problems (Diagnosis) (1) Atrial fibrillation with RVR Current Visit: Yes Status: Acute Plan: will restart his amiodarone and metoprolol. consult to Dr. Tracy. He seems to have recently had a full work up. (2) HTN (hypertension) Current Visit: Yes Status: Acute Plan: will monitor and adjust his medications as needed. Qualifiers: Hypertension type: primary hypertension Qualified Code(s): I10 - Essential (primary) hypertension (3) ESRD (end stage renal disease) Current Visit: Yes Status: Acute Plan: consult Dr. Rodriguez for management of his dialysis Discharge Plan: Home Plan to discharge in: 24 Hours - Advance Directives Does patient have a Living Will: No Does patient have a Durable POA for Healthcare: No - Code Status/Comfort Care Code Status Assessed: Yes Code Status: Full Code Physician Review: Patient Assessed, Agree with Above Assessment and Plan Critical Care: No
[2022-11-19 17:23] LABS: SARS-CoV-2 Antigen Rapid Res Negative (Negative)
[2022-11-19 18:04] VITALS: BMI 32.1
[2022-11-19] MEDS ORDERED: AMIODARONE HCL 200 MG TAB ONE (21:18)
[2022-11-19] MEDS: AMIODARONE HCL 200 MG TAB PO SCH (21:40)
[2022-11-19] MEDS ORDERED: METOPROLOL TAR 25 MG TAB PO SCH (22:24)
[2022-11-19] MEDS ORDERED: ONDANSETRON 4 MG/2 ML VIAL IV PRN (22:24)
[2022-11-20] MEDS: METOPROLOL TAR 50 MG TAB PO SCH ×2 (00:55→07:55)
[2022-11-20 03:56] LABS: Absolute Lymphocytes (CBC) 1.9 K/uL (0.7-4.9); Hematocrit 33.8 % (39.6-49.0); Lymphocytes % 27.1 % (15.3-44.8); MCV 101.1 fL (80-100); MPV 8.1 fL (7.6-11.3); RBC Red Blood Cell Count 3.34 M/uL (4.33-5.43)
[2022-11-20 04:16] LABS: Potassium 4.3 mmol/L (3.5-5.1)
[2022-11-20] MEDS: AMIODARONE HCL 200 MG TAB PO SCH (07:55)
[2022-11-20] MEDS ORDERED: ASPIRIN EC 81 MG TAB PO SCH (09:00)
[2022-11-20 10:12] VITALS: O2SAT 97
[2022-11-20] MEDS ORDERED: HYDRALAZINE HCL 20 MG/ML VIAL IV PRN (11:36)
--- NOTE | 2022-11-20 11:41 | P.DS ---
Admission Date: 11/19/22 Discharge Date: 11/20/22 Primary Care Provider: Ministerio Disposition: ROUTINE DISCHARGE Discharge Condition: GOOD Reason for Admission: afib with RVR - Problems (1) Atrial fibrillation with RVR Current Visit: Yes Status: Acute (2) HTN (hypertension) Current Visit: Yes Status: Acute Qualifiers: Hypertension type: primary hypertension Qualified Code(s): I10 - Essential (primary) hypertension (3) ESRD (end stage renal disease) Current Visit: Yes Status: Acute Brief History of Present Illness: Patient is a pleasant office patient. He has a history of hemiplegia, htn and dialysis. He has been treated for Atrial fib by Dr. Tracy. He had a negative work up. The patient was going to dialysis on examining his vitals he was found to be in atrial fib and was sent to the hospital rather than having dialysis. The patient stated that he had no symptoms, such as chest pain, sob or dizziness. He occasionally gets palpations at home. However they resolve within a few minutes. He is stable in the ER when I examined him Hospital Course: Patient was admitted for htn and atrial fib. He is doing well this morning. Will control his bp and send him home after dialysis Vital Signs/Physical Exam: Temp Pulse Resp BP Pulse Ox 96.8 F 54 16 172/110 H 100 11/20/22 08:00 11/20/22 08:00 11/20/22 08:00 11/20/22 08:00 11/20/22 08:00 General: Alert, In no apparent distress HEENT: Atraumatic, PERRLA, EOMI Neck: Supple, JVD not distended Respiratory: Clear to auscultation bilaterally, Normal air movement Cardiovascular: Regular rate/rhythm, Normal S1 S2 Gastrointestinal: Normal bowel sounds, No tenderness Musculoskeletal: No tenderness Integumentary: No rashes Neurological: Normal speech, Normal tone, Normal affect Lymphatics: No axilla or inguinal lymphadenopathy Laboratory Data at Discharge: WBC 7.10 K/uL (4.3-10.9) 11/20/22 03:13 Hgb 11.3 g/dL (13.6-17.9) L D 11/20/22 03:13 Hct 33.8 % (39.6-49.0) L 11/20/22 03:13 Plt Count 186 K/uL (152-406) 11/20/22 03:13 PT 12.1 SECONDS (9.5-12.5) 11/19/22 13:15 INR 1.10 11/19/22 13:15 Sodium 136 mmol/L (136-145) 11/20/22 03:13 Potassium 4.3 mmol/L (3.5-5.1) 11/20/22 03:13 BUN 35 mg/dL (7-18) H 11/20/22 03:13 Creatinine 7.25 mg/dL (0.70-1.30) H* 11/20/22 03:13 Glucose 79 mg/dL (74-106) 11/20/22 03:13 Total Bilirubin 0.3 mg/dL (0.2-1.0) 11/19/22 13:15 AST 9 U/L (15-37) L 11/19/22 13:15 ALT 13 U/L (16-61) L 11/19/22 13:15 Alkaline Phosphatase 99 U/L (45-117) 11/19/22 13:15 Home Medications: Amiodarone HCl [Cordarone*] 100 mg PO BID 30 Days #60 tab 11/20/22 Amlodipine [Norvasc*] 5 mg PO DAILY 30 Days #30 tab 11/20/22 New Medications: Amiodarone HCl [Cordarone*] 100 mg PO BID 30 Days #60 tab Amlodipine [Norvasc*] 5 mg PO DAILY 30 Days #30 tab Followup: Rudi Mandel MD [Primary Care Provider] - Time spent managing pt's care (in minutes): 30
[2022-11-20 12:21] VITALS: BP 134/88; TEMP 96.9
[2022-11-20 14:15] LABS: Hepatitis B Surface Ab - Quant > 1000.00 mIU/mL (<8.0); Hepatitis B surface AG Interp. Nonreactive (Nonreactive)
--- NOTE | 2022-11-20 17:20 | PN ---
Date of Progress Note: 11/20/2022 Subjective: The patient was admitted with AFib. The patient's heart rate got controlled. Physical Examination: Vital Signs: Blood pressure 171/100, pulse of 54, afebrile. Chest: Clear to auscultation. Heart: S1, S2. Regular. Abdomen: Soft, nontender. Extremities: No edema. Neurologic: Alert. No focality. Laboratory Data: Hemoglobin 11.3. Sodium 136, potassium 4.3, bicarb 26, BUN 35, creatinine 7.2, marlen cium 7.9. Current Medications: The patient on include amiodarone, amlodipine 5 mg, metoprolol 50 b.i.d., aspir in. Assessment And Plan: 1.End-stage renal disease, normal volume. The patient is going to be scheduled for dialysis today. We are not going to challenge the patient. 2.Hypertension, controlled, optimal. Continue current treatment. 3.Atrial fibrillation with rapid ventricular response as by Cardiology. Follow up with primary. 4.Diabetes as by primary. The patient cleared from the Renal standpoint for discharge planning. KELLE Voice ID: [id number] Report ID: [id number]
[2022-11-20] MEDS ORDERED: METOPROLOL TAR 50 MG TAB PO SCH (21:00)
--- NOTE | 2022-11-21 00:20 | CON ---
Date of Consultation: 11/20/2022 Reason For Consultation: Atrial fibrillation with rapid ventricular response. History Of Present Illness: This is a middle-aged male, end-stage renal disease, on hemodialysis, at [facility], presented to the emergency room as he was found to be in atrial fibrillation with rapid ventricular response. Heart rate was fast. He was placed on amiodarone by mouth and is on met oprolol and he is in sinus rhythm now. Has no symptoms. Past Medical History: As outlined above in the HPI. Medications: Refer to the reconciliation sheet for detailed list. Allergies: NO KNOWN DRUG ALLERGIES. Family History: No premature coronary artery disease or cancer. Social History: Does not smoke or drink. Does not use any drugs. Review of Systems: All systems reviewed and they were negative except for what mentioned in HPI. Physical Examination: Vital Signs: Reviewed. Head and Neck: Pupils are equal, reactive to light. Intact eye movements. No JVD. No cervical lym phadenopathy. Neck is supple. Thyroid is not enlarged. Lungs: Clear to auscultation bilaterally. No rhonchi, rales, or crackles. No accessory muscle use. Heart: Regular rate and rhythm. No extra sounds. Abdomen: Soft, nontender. Bowel sounds positive. No organomegaly. No masses or hernia. No rigidi ty or rebound. Extremities: No edema, clubbing, or cyanosis. Intact pulses. Skin: No rash. Neurological: Alert, awake, oriented x3. No acute focal deficits appreciated. Investigations: Labs were reviewed. Assessment And Recommendation: 1.Atrial fibrillation. Now, he is in sinus. Increase metoprolol to 100 mg twice a day and amiodaro ne is okay to use for short periods of time. However, this patient is very young. I will attempt to decrease the doses on an outpatient basis to the lowest possible and titrate the beta-sarkis as jessy erated. 2.End-stage renal disease, on hemodialysis. SR/MODL Voice ID: [id number] Report ID: [id number]
[2022-11-21] MEDS ORDERED: AMLODIPINE 5 MG TAB PO SCH (09:00)
--- NOTE | 2022-11-21 16:34 | EKG ---
Test Date: 2022-11-19 Test Time: 12:52:39 Clinical Counselor: SG MEASUREMENT RESULTS: Intervals: Rate: 73 MI: 208 QRSD: 72 QT: 378 QTc: 416 [place]: P: 53 MI: 208 QRS: 75 T: 49 INTERPRETIVE STATEMENTS: Normal sinus rhythm Normal ECG Compared to ECG 08/05/2022 22:33:07 No significant changes Electronically Signed On 11-21-22 16:31:08 BARREL RIFLER by Charles Tracy
--- NOTE | 2022-11-21 16:34 | EKG ---
Test Date: 2022-11-19 Test Time: 12:51:37 Gaming Table Operator: SG MEASUREMENT RESULTS: Intervals: Rate: 76 CT: 214 QRSD: 78 QT: 382 QTc: 429 [place]: P: 67 CT: 214 QRS: 74 T: 53 INTERPRETIVE STATEMENTS: Sinus rhythm with 1st degree AV block Otherwise normal ECG Compared to ECG 08/05/2022 22:33:07 First degree AV block now present Electronically Signed On 11-21-22 16:31:09 CREDIT ASSOCIATE by Charles Tracy
== END 2022-11-20 18:01 | disposition home or self-care (01) ==
LOC: ER 12:42 → ERHOLD 15:48 → 4TH 22:12
PROVIDERS: ADMIT Internal Medicine; ATTEND Internal Medicine
DX: I48.20 Chronic atrial fibrillation, unspecified (principal); N18.6 End stage renal disease; E11.22 Type 2 diabetes mellitus with diabetic chronic kidney disease; I12.0 Hypertensive chronic kidney disease with stage 5 chronic kidney disease or end stage renal disease; J81.1 Chronic pulmonary edema; Z20.822 Contact with and (suspected) exposure to COVID-19; Z99.2 Dependence on renal dialysis
CPT/HCPCS: 93005 ×2; 85025 ×2; 80048 ×2; 36415; 85610; 80076; 84484 ×2; 83880; 87340; 86706; 71045; 90935; 99284; 87811; J1644; G0378

== ENCOUNTER 2023-03-26 13:23 | Emergency (ER) | payer OTHER ==
--- OUTSIDE RECORDS SUMMARY | 2023-03-26 13:36 | XMS REPORT | Continuity of Care Document ---
:1965 Author Organization [facility] t Address [address] [place] [address] [place] [id number] Care Team Providers Name Role Phone PCP, PATIENT DOES NOT HAVE A Primary Care Physician Unavaila STEFANY Medel Attending Clinician Unavailable German Del Rio Attending Clinician GERMAN DEL RIO Attending Clinician Unavailable REGAN MUKHERJEE Attending Clinician Unavailable BERONICA ZHOU Attending Clinician Unavailable Rosaline Brannon Attending Clinician ROBERTO PRATT Attending Clinician Unavailable Roberto Pratt MD Attending Clinician HOUSTON CHANG Attending Clinician Unavailable Houston Chang MD Attending Clinician Elidia Kat MD Attending Clinician [phone] Vtc-Lab Attending Clinician Unavailable Wire Drawing Die Maker, Transplant Attending Clinician Unavailable ANAI STONE Attending Clinician Unavailable Worker, Transplant Social Attending Clinician Unavailable Anai Stone MD Attending Clinician Renal, Transplant Class Attending Clinician Unavailable Jeromy Cannon Attending Clinician DR ELIUD MAY Attending Clinician Unavailable Sada Hurst Attending Clinician [phone] Romi Ritchie Attending Clinician Shun Roper Attending Clinician Stephanie Mg Attending Clinician Valeri Zarco Attending Clinician Shira Stevenson Attending Clinician DR PAUL BARFIELD Attending Clinician Unavailable Janak Ingram Attending Clinician Armond Moreland Attending Clinician Malorie Ahn Attending Clinician Eduin Tsai Attending Clinician Pancho Mireles Attending Clinician Mauricio Whitmore Attending Clinician Judy Calderon Attending Clinician STEFANY COTA Admitting Clinician Unavailable Hanna Mitchell Admitting Clinician [phone] HANNA MITCHELL Admitting Clinician Unavailable ROBERTO PRATT Admitting Clinician Unavailable DR ELIUD MAY Admitting Clinician Unavailable Shun Roper Admitting Clinician DR PAUL BARFIELD Admitting Clinician Unavailable Pancho Mireles Admitting Clinician Mauricio Whitmore Admitting Clinician Judy Calderon Admitting Clinician Payers Payer Name Policy Type Policy Number Effective Date Expiration Date S ournuha [employer] MEDICARE [id number] 2018 ADVANTAGE HMO 00:00:00 [employer] GOLD PLS [id number] 2018 HMO 00:00:00 Problems Condition Condition Condition Status Onset Resolution Last Treating Co mments Source Name Details Category Date Date Treatment Clinician Date COMPLICATI COMPLICAT Diagnosis Active 2022-12-20 Memoria ONS, IONS, 3-06 21:47:00 l DIALYSIS, DIALYSIS, 00:00: Herm elidia CATHETER, CATHETER, 00 MECHA MECHA Active 12/02/2022 [facility] COMPLICATI COMPLICAT Diagnosis Active 2022-12-04 Memoria ON OF AV ION OF AV 12-02 08:14:00 l FISTULA FISTULA 00:00: [place] Active 00 12/02/2022 [facility] SI SI Active Diagnosis Active 2018-092019-08-19 Memoria 08/19/201910-19 14:02:00 l Sugar 00:00: [place] 00 NEW NEW Diagnosis Active 2019-06-22 Mem oria EVALUATION EVALUATION 03-18 07:29:00 l Active 00:00: [place] 03/18/2019 00 [facility] G81.92 G81.92 Diagnosis Active 2019-01-27 Me moria Active 01-27 09:05:00 l 01/27/2019 07:00: Luisito GREWAL [facility] 00 COLON COLON Diagnosis Active 2017-092019-01-04 Mem oria CANCER CANCER 11-25 16:49:00 l SCREENING- SCREENING- 00:00: [place] elias Z12.11 Z12.11 00 Active 09/24/2018 [place] I63.9, I63.9, Diagnosis Active 2017-092019-01-10 M emoria N18.6 N18.6 0 16:23:00 l Active 07:00: [place] 07/16/2018 00 [facility] N18.6 N18.6 Diagnosis Active 2018-03-02 Mem oria Active 02-18 07:38:00 l 02/18/2018 00:00: Luisito GREWAL [facility] N/A N/A Diagnosis Active 2018-03-02 Mem oria Active 02-18 07:38:00 l 02/18/2018 00:00: Luisito walsh 00 [facility] EVAL EVAL Diagnosis Active 2018-03-22 Mem oria Active 02-04 11:30:00 l 02/04/2018 00:00: Luisito GREWAL [facility] 00 PA RENAL PA RENAL Diagnosis Active 2018-01-27 Memoria ACCT FOR ACCT FOR 01-27 13:17:00 l F/C NOTES F/C NOTES 08:00: Herm elidia ONLY ONLY 00 Active 01/27/2018 [facility] FALL FALL Diagnosis Active 2018-04-09 Mem oria Active 01-27 14:03:00 l 01/27/2018 00:00: Luisito walsh [address] N18.16 N18.16 Diagnosis Active 2017-11-14 Me moria Active 10-29 10:52:00 l 10/29/2017 00:00: Luisito walsh 00 [facility] T82.390A/N T82.390A/ Diagnosis Active 2017-06-26 Memoria 18.6 N18.6 06-16 07:13:00 l Active 00:00: [place] 06/16/2017 00 [facility] INTRACRANI Diagnosis Active 2013-11-25 Memoria AL INTRACRANI 11-22 15:29:00 l HEMORRHAGE AL 00:00: Luisito walsh [facility] 00 Active 11/22/2013 [facility] OTHER OTHER Diagnosis Active 2013-11-22 Mem oria Active 11-22 13:18:00 l 11/22/2013 00:00: Luisito walsh [address] 719.4 - 719.4 - Diagnosis Active 2013-02-01 Memoria PAIN IN PAIN IN -18 19:45:00 l JOINT JOINT 00:01: [place] Active 00 12/14/2012 OPID [facility] KNEE PAIN KNEE PAIN Diagnosis Active 2012-11-03 Memoria Active 11-03 09:25:00 l 11/03/2012 07:00: Luisito walsh [address] SWOLLEN SWOLLEN Diagnosis Active 2012-02-14 Memoria FACE FACE 4-10 09:39:00 l Active 05:00: Momo 01/07/2012 00 [facility] No known No known Disease Unive rs active active ity of problems problems [facility] End stage End Problem Active 2018-04-09 Fl jose luis renal stage 14:34:12 l disease renal Momo (disorder) disease (disorder) Active Problem 04/09/2018 [facility], [place],[facility] [place] Dependence Dependenc Problem Active 2018-04-09 Memoria on renal e on renal 14:34:12 l dialysis dialysis Luisito walsh (finding) (finding) Active Problem 04/09/2018 [facility], [place],[facility], [place] Knee pain Knee pain Problem Active 2018-04-09 Memoria (finding) (finding) 14:34:12 l Active [place] Problem 04/09/2018 [facility], [facility], [facility] Asthenia Asthenia Problem Active 2017-09-04 Memoria (finding) (finding) 03:33:54 l Active [place]o Problem 09/04/2017 left side Medical Group,[facility], [facility] Dependence Dependenc Problem Active 2022-12-16 Memoria on e on 23:09:33 l hemodialys hemodialys He rmann is due to is due to end stage end stage renal renal disease disease (finding) (finding) Active Problem 12/16/2022 [facility] Group,[facility], [facility], [facility] History of History Problem Active 2022-12-16 Memoria adenomatou of 23:09:33 l s polyp of adenomatou He rmann colon s polyp of (situation colon ) (situation ) Active Problem 12/16/2022 Medical Group,[facility] History of History Problem Active 2022-12-16 Memoria - CVA of - CVA 23:09:33 l (context-d (context-d He rmann ependent ependent category) category) Active Problem 12/16/2022 [facility], [facility] Hypertensi Hypertens Problem Active 2022-12-16 Memoria ve babs 23:09:33 l disorder, disorder, Herm elidia systemic systemic arterial arterial (disorder) (disorder) Active Problem 12/16/2022 Medical Group,[facility], [facility], [facility] Left Left Problem Active 2022-12-16 Memor ia hemiparesi hemiparesi 23:09:33 l s s Momo (disorder) (disorder) Active Problem 12/16/2022 [facility], [facility], [facility] Obesity Obesity Problem Active 2022-12-16 Me moria (disorder) (disorder) 23:09:33 l Active [place] Problem 12/16/2022 Medical Group,[facility], [facility], Isabell Murillo,Jose A ial [facility] OTH Diagnosis Active 2022-12-20 Mem oria COMPLICATI COMPLICATI 21:47:00 l ON OF ON OF Momo VASCULAR VASCULAR DIALYSIS DIALYSIS CA CA Active [facility] COMPL MECH Diagnosis Active 2022-12-04 Memoria OF COMPL OF 08:14:00 l SURGICALLY SURGICALLY He rmelidia CREATED CREATED ARTERIO ARTERIO Active [facility] ADMINISTRT ADMINISTR Diagnosis Active 2013-11-25 Memoria VE ENCOUNT TVE 15:29:00 l NOS ENCOUNT [place] NOS Active [facility] 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 12:05:44 l kidney kidney Momo disease disease 02/19/2018 [facility] Hyperlipid Hyperlipi Problem 2018-02-19 Memoria emia, demia, 12:05:44 l unspecifie unspecifie He rmelidia d d 02/19/2018 [facility] Personal Personal Problem 2018-02-19 Memoria history of history of 12:05:44 l other other [place] infectious infectious and and parasitic parasitic diseases diseases 02/19/2018 [facility] Other Other Problem 2019-03-11 Memor ia speech and speech and 11:15:31 l language language Luisito walsh deficits deficits following following cerebral cerebral infarction infarction 9 [facility] 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 12:31: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 04/13/2019 [place] Polyp of Polyp of Problem 2019-04-13 Memoria colon colon 12:31:49 l 04/13/2019 Luisito n [place] Diverticul Diverticu Problem 2019-04-13 Memoria osis of losis of 12:31:49 l large large Momo intestine intestine without without perforatio perforatio n or n or abscess abscess without without bleeding bleeding 04/13/2019 [place] First First Problem 2019-04-13 Memor ia degree degree 12:31:49 l hemorrhoid hemorrhoid He rmann s s 04/13/2019 [place] Hypertensi Hypertens Problem 2019-04-13 Memoria ve chronic babs 12:31:49 l kidney chronic Momo disease kidney with stage disease 5 chronic with stage kidney 5 chronic disease or kidney end stage disease or renal end stage disease renal disease 04/13/2019 [facility] [place] Hemiplegia Hemiplegi Problem 2019-04-13 Memoria and a and 12:31:49 l hemiparesi hemiparesi He rmann s s following following cerebral cerebral infarction infarction affecting affecting left left non-domina non-domina nt side nt side 04/13/2019 [facility] [place] Obesity, Obesity, Problem 2019-04-13 Memoria unspecifie unspecifie 12:31:49 l d d Momo 04/13/2019 [facility] [place] Gastro-eso Gastro-es Problem 2019-04-13 Memoria phageal ophageal 12:31:49 l reflux reflux [place] disease disease without without esophagiti esophagiti s s 04/13/2019 [place] Dependence Problem 2019-04-13 M emoria on renal Dependence 12:31:49 l dialysis on renal Luisito n dialysis 04/13/2019 [facility], [facility] [place] Other long Other Problem 2019-04-13 M emoria term residential 12:31:49 l (current) (current) Herm elidia drug drug therapy therapy 04/13/2019 [place] Body mass Body mass Problem 2019-04-13 Memoria index index 12:31:49 l (BMI) (BMI) Momo 34.0-34.9, 34.0-34.9, adult adult 04/13/2019 [place] 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 11:27:14 l mellitus mellitus Luisito n 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 01/04/2019 [facility] Hypertensi Hypertens Problem 2019-01-04 Memoria ve heart babs heart 11:27:14 l and and [place] chronic chronic kidney kidney disease disease without without heart heart failure, failure, with stage with stage 5 chronic 5 chronic kidney kidney disease, disease, or end or end stage stage renal renal disease disease 01/04/2019 [facility] Abrasion, Abrasion, Problem 2018-02-06 Memoria left knee, left knee, 01:28:35 l initial initial Momo encounter encounter 02/06/2018 [facility] Fall from Fall from Problem 2018-02-06 Memoria non-moving non-moving 01:28:35 l wheelchair wheelchair He curt , initial , initial encounter encounter 02/06/2018 [facility] Personal Personal Problem 2019-02-14 Memoria history of history of 11:52:48 l transient transient Herm elidia ischemic ischemic attack attack (TIA), and (TIA), and cerebral cerebral infarction infarction without without residual residual deficits deficits 02/14/2019 [facility], [place] HTN - HTN - Problem Resolve 2012-11-05 [place] j[place] Hypertensi Hypertensi d 14:11:00 l on on [place] Resolved Problem 11/05/2012 [facility] Anemia Anemia Problem Resolve 2022-12-09 Mem oria (disorder) (disorder) d 15:15:22 l Resolved [place] Problem 12/09/2022 [facility], [facility], [facility] Gastroesop Gastroeso Problem Resolve 2022-12-09 Memoria hageal phageal d 15:15:22 l reflux reflux [place]o disease disease (disorder) (disorder) Resolved Problem 12/09/2022 [facility], [facility], [facility] Motion Motion Problem Resolve 2022-12-09 Mem oria sickness sickness d 15:15:22 l (disorder) (disorder) He rmann Resolved Problem 12/09/2022 [facility], [facility], [facility] 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 d 15:15:22 l (disorder) (disorder) He rmann Resolved Problem 12/09/2022 [facility], [facility], [facility] Urinary Urinary Problem Resolve 2022-12-09 M emoria tract tract d 15:15:22 l infectious infectious He rmann disease disease (disorder) (disorder) Resolved Problem 12/09/2022 [facility], [facility], [facility] Diabetes Diabetes Problem Resolve 2013-11-28 Memoria mellitus mellitus d 22:32:01 l (disorder) (disorder) He rmann Resolved Problem 11/28/2013 [facility] Cerebrovas Cerebrova Problem Resolve 2013-0 2022-12-09 2022-12-09 Memoria cular scular d 11-23 15:15:22 15:15:22 l accident accident 00:00: Luisito walsh (disorder) (disorder) 00 Resolved 11/23/2013 Problem 12/09/2022 [facility], [facility], [place] History of Past Illness Condition Condition Condition Status Onset Resolution Last Treating Co mments Source Name Details Category Date Date Treatment Clinician Date End stage End stage Problem 2018-092019-08-22 2019-08-22 Memoria renal renal 10-20 22:46:11 22:46:11 l disease disease 18:00: Momo 08/20/2019 00 08/22/2019 [facility], [facility], [place] Suicidal Suicidal Problem 2018-092019-08-22 2019-08-22 Memoria ideations ideations 10-20 22:46:11 22:46:11 l 08/20/2019 18:00: Luisito walsh 08/22/2019 00 [place] Encounter Encounter Problem 2019-04-13 2019-04-13 Memoria for for 10-02 12:31:49 12:31:49 l screening screening 05:06: Herm elidia for for 02 malignant malignant neoplasm neoplasm of colon of colon 10/02/2018 04/13/2019 [place] Other Other Problem 2017-092019-03-11 2019-03-11 M emoria symptoms symptoms 10-30 11:15:31 11:15:31 l and signs and signs 11:35: Herm elidia involving involving 10 cognitive cognitive functions functions following following cerebral cerebral infarction infarction 08/29/2018 9 [facility] Hypotensio Hypotensi Problem 2017-092019-02-14 2019-02-14 Mathieu walsh on, 10-01 11:52:48 11:52:48 l unspecifie unspecifie 04:15: [place] rmann d d 02 08/01/2018 9 [place] Poisoning Poisoning Problem 2017-092019-02-14 2019-02-14 Memoria by by 0-30 11:52:48 11:52:48 l unspecifie unspecifie 05:00: He curt d drugs, d drugs, 00 medicament medicament s and s and biological biological substances substances , , accidental accidental (unintenti (unintenti onal), onal), initial initial encounter encounter 07/28/2018 02/14/2019 [place] Stenosis Stenosis Problem 2018-04-09 2018-04-09 Memoria of of 01-21 14:34:12 14:34:12 l vascular vascular 03:32: Luisito walsh prosthetic prosthetic 44 devices, devices, implants implants and and grafts, grafts, initial initial encounter encounter 01/21/2018 04/09/2018 [facility] Essential Essential Problem 2018-02-27 2018-02-27 Memoria (primary) (primary) 02-24 02:54:03 02:54:03 l hypertensi hypertensi 05:00: [place] elias on on 02/24/2018 02/27/2018 [place] Pain in Pain in Problem 2018-02-06 2018-02-06 Memoria unspecifie unspecifie 01-27 01:28:35 01:28:35 l d knee d knee 05:00: Momo 01/27/2018 00 02/06/2018 [facility] Unspecifie Unspecifi Problem 2017-05-12 2017-05-12 Memoria d ed 8-11 05:31:02 05:31:02 l complicati complicati 05:00: [place] elias on of on cardiac cardiac and and vascular vascular prosthetic prosthetic device, device, implant implant and graft, and graft, initial initial encounter encounter 05/09/2017 7 [place] Allergies, Adverse Reactions, Alerts Allergy Allergy Status Severity Reaction(s) Onset Inactive Treating Comm ents Source Name Type Date Date Clinician Martín Fallon Active Rash No Univer s h ty to 03-27 allergy ity of Derived adverse 00:00: to iodine [place] reaction 00 per Medical s patient Branch SHELLFIS DRUG Active Rash Univers H INGREDI 03-27 ity of DERIVED 00:00: [place] 00 Medical Branch martín galvez Active Memori a h h gayle Barr No Known No Known Active Memori a Medicati Medicati l on on Momo Carmnoa s s Social History Social Habit Start Date Stop Date Quantity Comments Source Exposure to 2022-11-22 2022-12-02 Not sure [facility] SARS-CoV-2 (event) 00:00:00 11:38:00 Medica l Branch Social History 2018-07-28 2018-07-28 [facility] anatelidia 18:58:22 18:58:22 Sex [birth year] [facility] 00:00:00 00:00:00 Medical Branch Smoking Status Start Date Stop Date Source Tobacco smoking [facility] xa consumption unknown Medical Bran Tobacco smoking status 2022-12-03 03:56:15 2022-12-03 Memor jose daniel Barr 03:56:15 Medications Ordered Filled Start Stop Current Ordering Indication Dosage Frequency Signature Comments Components Source Medication Medication Date Date Medication? Clinician (SIG) Name Name ferrous Yes 325 mg = 1 [place] sulfate 325 3-18 tab, PO, l mg oral 16:56: Daily, # Luisito n enteric 00 30 tab, 0 coated Refill(s), tablet Pharmacy: [facility] #[id number], 170.18, cm, 12/02/22 20:25:00 DEPLOYMENT TECHNICIAN, Height, 91.364, kg, 12/02/22 20:25:00 DEPLOYMENT TECHNICIAN, Weight Vitamin C Yes 500 mg = 1 Me moria 500 mg oral 3-18 tab, PO, l tablet 16:56: Daily, # Momo 00 30 tab, 0 Refill(s), Pharmacy: [facility] #[id number], 170.18, cm, 12/02/22 20:25:00 DEPLOYMENT TECHNICIAN, Height, 91.364, kg, 12/02/22 20:25:00 DEPLOYMENT TECHNICIAN, Weight Tylenol Yes 1 tab, PO, [place] jessi with 3-18 Q6H, PRN l Codeine #3 16:46: Pain, not He rmann oral tablet 00 to exceed 4000 mg acetaminop hen per day, X 4 day, # 20 tab, 0 Refill(s), Pharmacy: [facility] #[id number], 170.18, cm, 12/02/22 20:25:00 DEPLOYMENT TECHNICIAN, Height, 91.364, kg, 12/02/22 20:25:00 DEPLOYMENT TECHNICIAN, Weight aspirin 81 Yes 81 mg = 1 Me moria mg tablet, 3-18 tab, PO, l enteric 16:45: Daily, # Luisito n coated 00 90 tab, 3 Refill(s), Pharmacy: [facility] #[id number], 170.18, cm, 12/02/22 20:25:00 DEPLOYMENT TECHNICIAN, Height, 91.364, kg, 12/02/22 20:25:00 DEPLOYMENT TECHNICIAN, Weight atorvastati Yes 40 mg = 1 M emoria n 40 mg 3-18 tab, PO, l oral tablet 16:45: Bedtime, # Momo 00 30 tab, 0 Refill(s), Pharmacy: [facility] #[id number], 170.18, cm, 12/02/22 20:25:00 DEPLOYMENT TECHNICIAN, Height, 91.364, kg, 12/02/22 20:25:00 DEPLOYMENT TECHNICIAN, Weight midodrine 5 Yes 10 mg = 2 M emoria mg oral 3-18 tab, PO, l tablet 16:44: Q8Hnow, # Luisito n 00 180 tab, 0 Refill(s), Pharmacy: [facility] #[id number], 170.18, cm, 12/02/22 20:25:00 DEPLOYMENT TECHNICIAN, Height, 91.364, kg, 12/02/22 20:25:00 DEPLOYMENT TECHNICIAN, Weight Lokelma 10 No Notes: Memor ia g oral 3-12 (Same as: l powder for 20:34: Lokelm a) Momo reconstitut 00 Mix with ion 45 mL water prior to administra tion heparin Yes Notes: Memoria 3-10 porcine l 15:00: heparin Momo 00 Lactated No 1,000 mL, [place] jessi Ringers 3-10 Rate: 125 l Injection 13:24: ml/hr, Luisito n IV 1,000 mL 00 Infuse over: 8 hr, Route: IV, Dosing Weight 91.364 kg, Total Volume: 1,000, Start date: 12/06/22 7:24:00 DEPLOYMENT TECHNICIAN, Duration: 30 day, Stop date: 01/05/23 7:23:00 CDT, BSA: 2.1 m2, 0 ANES 2022-0 No 10 mg, Memoria hydrALAZINE 3-10 Route: l 13:24: IVP, [place] 00 Q20Min, Dosing Weight 91.364, kg, PRN Elevated BP, Start date: 12/06/22 7:24:00 DEPLOYMENT TECHNICIAN, Duration: 2 doses or times, Stop date: Limited # of times ANES 2022-0 No 1,000 mg, Memoria acetaminoph 3-10 Route: PO, l en 13:24: Drug form: Momo 00 TAB, ONCE, Dosing Weight 91.364, kg, Start date: 12/06/22 7:24:00 DEPLOYMENT TECHNICIAN, Stop date: 12/06/22 7:24:00 DEPLOYMENT TECHNICIAN ANES 0 No 25 Memoria fentaNYL 3-10 microgram, l 13:24: Route: Momo 00 IVP, Q5Min, Dosing Weight 91.364, kg, PRN Pain Score 4-6, Priority: Routine, Start date: 12/06/22 7:24:00 DEPLOYMENT TECHNICIAN, Duration: 4 doses or times, Stop date: Limited # of times ANES 0 No 0.5 mg, Memoria HYDROmorpho 3-10 Route: l ne 13:24: IVP, [place] 00 Q10Min, Dosing Weight 91.364, kg, PRN Pain Score 7-10, Start date: 12/06/22 7:24:00 DEPLOYMENT TECHNICIAN, Duration: 4 doses or times, Stop date: Limited # of times ANES 2022-0 No 0.2 mg, Memoria flumazenil 3-10 Route: l 13:24: IVP, PRN, [place] 00 Dosing Weight 91.364, kg, PRN Benzodiaze pine Reversal, Initial dose, Start date: 12/06/22 7:24:00 DEPLOYMENT TECHNICIAN, Duration: 30 day, Stop date: 01/05/23 8:23:00 CDT ANES 2022-0 No 0.4 mg, Memoria naloxone 3-10 Route: l 13:24: IVP, [place] 00 Q2MIN, Dosing Weight 91.364, kg, PRN Narcotic Reversal, Start date: 12/06/22 7:24:00 DEPLOYMENT TECHNICIAN, Duration: 8 doses or times, Stop date: Limited # of times ANES 2022-0 No 12.5 mg, Memoria diphenhydrA 3-10 Route: l MINE 13:24: IVP, Drug form: INJ, Q6H, Dosing Weight 91.364, kg, PRN Itching, Start date: 12/06/22 7:24:00 DEPLOYMENT TECHNICIAN, Duration: 30 day, Stop date: 01/05/23 7:23:00 CDT ANES 3-0 No 5 mg, Memoria ePHEDrine 3-10 Route: l 13:24: IVP, Momo 00 Q5Min, Dosing Weight 91.364, kg, PRN Low Blood Pressure, Start date: 12/06/22 7:24:00 DEPLOYMENT TECHNICIAN, Duration: 30 day, Stop date: 01/05/23 8:23:00 CDT ANES 2022-0 No 2.49 mg, Memoria albuterol 3-10 Route: l 0.083% 13:24: NEB, Momo inhalation 00 Q20Min, solution Dosing Weight 91.364, kg, PRN Wheezing, Start date: 12/06/22 7:24:00 DEPLOYMENT TECHNICIAN, Duration: 30 day, Stop date: 01/05/23 8:23:00 CDT ANES 2022-0 No 4 mg, Memoria ondansetron 3-10 Route: l 13:24: IVP, ONCE, Dosing Weight 91.364, kg, PRN Nausea & Vomiting, Start date: 12/06/22 7:24:00 DEPLOYMENT TECHNICIAN ceFAZolin 2022-0 No Route: IV, Me moria (ANES) 3-10 Drug form: l 13:12: INJ, ONCE, Stop date: 12/06/22 7:12:00 DEPLOYMENT TECHNICIAN ondansetron 2022-0 No Route: IV, Memoria (ANES) 3-10 Drug form: l 13:12: INJ, ONCE, Stop date: 12/06/22 7:12:00 DEPLOYMENT TECHNICIAN dexamethaso 2022-0 No Route: IV, Memoria ne (ANES) 3-10 Drug form: l 13:12: INJ, ONCE, Stop date: 12/06/22 7:12:00 DEPLOYMENT TECHNICIAN phenylephri 2022-0 No Route: IV, Memoria ne (ANES) 3-10 Drug form: l 13:12: INJ, ONCE, Momo 00 Stop date: 12/06/22 7:12:00 DEPLOYMENT TECHNICIAN fentaNYL 2022-0 No Route: IV, Mem oria (ANES) 3-10 Drug form: l 13:12: INJ, ONCE, [place] 00 Stop date: 12/06/22 7:12:00 DEPLOYMENT TECHNICIAN propofol 2022-0 No Route: IV, Mem oria (ANES) 3-10 Drug form: l 13:12: INJ, ONCE, [place] 00 Stop date: 12/06/22 7:12:00 DEPLOYMENT TECHNICIAN lidocaine 2022-0 No Route: IV, Me moria (ANES) 3-10 Drug form: l 13:12: INJ, ONCE, Stop date: 12/06/22 7:12:00 DEPLOYMENT TECHNICIAN Insulin 2022-0 No Route: IV, Tico jessi regular 3-10 Drug form: l (ANES) 13:12: INJ, ONCE, Joanna Stop date: 12/06/22 7:12:00 DEPLOYMENT TECHNICIAN Sodium 2022-0 No Route: IV, Memor ia Chloride 3-10 Total l 0.9% IV 12:29: Volume: Momo (ANES) 500 00 500, Start mL date: 12/06/22 6:29:00 DEPLOYMENT TECHNICIAN, Stop date: 12/06/22 7:29:00 DEPLOYMENT TECHNICIAN Dextrose 2022-0 No Route: IV, Mem oria 10% in 3-10 Total l Water IV 12:29: Volume: Luisito n (ANES) 250 00 250, Start mL date: 12/06/22 6:29:00 DEPLOYMENT TECHNICIAN, Stop date: 12/06/22 7:29:00 DEPLOYMENT TECHNICIAN Lokelma 5 g Yes Notes: Tico jessi oral powder 3-09 (Same as: l for 18:00: Lokelma) reconstitut 00 Mix with ion 45 mL water prior to administra tion amLODIPine Yes Notes: Memor ia 3-09 (Same as: l 03:30: Norvasc) [place] 00 [place] 5/325 Yes Notes: Tico jessi oral tablet 3-09 (Same as: l 03:23: [place] Momo 00 325/5) Do not exceed 4gm/day of acetaminop hen. amLODIPine 2023-0 No 10 mg, 1 Mem oria 3-08 tab, l 15:00: Route: PO, Momo 00 Drug form: TAB, Daily, Dosing Weight 91.364, kg, Start date: 12/04/22 9:00:00 DEPLOYMENT TECHNICIAN, Duration: 30 day, Stop date: 01/02/23 9:00:00 CDT ANES 2022-0 No 1,000 mg, Memoria acetaminoph 08 Route: PO, l en 00:36: Drug form: [place] 00 TAB, ONCE, Dosing Weight 91.364, kg, Start date: 12/03/22 18:36:00 DEPLOYMENT TECHNICIAN, Stop date: 12/03/22 18:36:00 DEPLOYMENT TECHNICIAN ANES 2022-0 No 5 mg, Memoria oxyCODONE 5 08 Route: PO, l mg 00:36: Drug form: [place] immediate 00 TAB, Q4H, release Dosing tablet Weight 91.364, kg, PRN Pain Score 4-6, Start date: 12/03/22 18:36:00 DEPLOYMENT TECHNICIAN, Duration: 30 day, Stop date: 01/02/23 18:35:00 CDT ANES 2022-0 No 0.5 mg, Memoria HYDROmorpho 12-04 Route: l ne 00:36: IVP, Momo 00 Q10Min, Dosing Weight 91.364, kg, PRN Pain Score 7-10, Start date: 12/03/22 18:36:00 DEPLOYMENT TECHNICIAN, Duration: 4 doses or times, Stop date: Limited # of times ANES 2022-0 No 0.2 mg, Memoria flumazenil 08 Route: l 00:36: IVP, PRN, [place] 00 Dosing Weight 91.364, kg, PRN Benzodiaze pine Reversal, Initial dose, Start date: 12/03/22 18:36:00 DEPLOYMENT TECHNICIAN, Duration: 30 day, Stop date: 01/02/23 19:35:00 CDT ANES 2022-0 No 0.4 mg, Memoria naloxone 08 Route: l 00:36: IVP, Momo 00 Q2MIN, Dosing Weight 91.364, kg, PRN Narcotic Reversal, Start date: 12/03/22 18:36:00 DEPLOYMENT TECHNICIAN, Duration: 8 doses or times, Stop date: Limited # of times ANES 2022-0 No 4 mg, Memoria ondansetron 08 Route: l 00:36: IVP, ONCE, Dosing Weight 91.364, kg, PRN Nausea & Vomiting, Start date: 12/03/22 18:36:00 DEPLOYMENT TECHNICIAN Sodium 2022-0 No Route: IV, Memor ia Chloride 07 Total l 0.9% IV 23:53: Volume: Momo (ANES) 1000 00 1,000, mL Start date: 12/03/22 17:53:00 DEPLOYMENT TECHNICIAN, Stop date: 12/03/22 18:53:00 DEPLOYMENT TECHNICIAN fentaNYL 2022-0 No Route: IV, Mem oria (ANES) 12-03 Drug form: l 23:52: INJ, ONCE, Stop date: 12/03/22 17:52:00 DEPLOYMENT TECHNICIAN propofol 2022-0 No Route: IV, Mem oria (ANES) - Drug form: l 23:52: INJ, ONCE, Stop date: 12/03/22 17:52:00 DEPLOYMENT TECHNICIAN ceFAZolin 0 No Route: IV, Me moria (ANES) 12-03 Drug form: l 23:52: INJ, ONCE, Stop date: 12/03/22 17:52:00 DEPLOYMENT TECHNICIAN ondansetron 0 No Route: IV, Memoria (ANES) - Drug form: l 23:52: INJ, ONCE, Stop date: 12/03/22 17:52:00 DEPLOYMENT TECHNICIAN Lactated 2022-0 No 1,000 mL, Tico jessi Ringers 12-03 Rate: 75 l Injection 19:07: ml/hr, Luisito n IV 1,000 mL 00 Infuse over: 13.3 hr, Route: IV, Dosing Weight 91.364 kg, Total Volume: 1,000, Start date: 12/03/22 13:07:00 DEPLOYMENT TECHNICIAN, Duration: 1 day, Stop date: 12/04/22 13:06:00 DEPLOYMENT TECHNICIAN, BSA: 2.1 m2, 0 Sodium 2022-0 No 1,000 mL, Memori a Chloride 12-03 Rate: 75 l 0.9% IV 19:07: ml/hr, Momo 1,000 mL 00 Infuse over: 13.3 hr, Route: IV, Dosing Weight 91.364 kg, Total Volume: 1,000, Start date: 12/03/22 13:07:00 DEPLOYMENT TECHNICIAN, Duration: 1 day, Stop date: 12/04/22 13:06:00 DEPLOYMENT TECHNICIAN, BSA: 2.1 m2, 0 metoprolol 2022-0 Yes Notes: Memor ia tartrate 12-03 (Same as: l 15:00: Lopressor) Renvela 2022-0 Yes Notes: Memoria 12-03 Same as: l 14:00: Renvela D10W 2022-0 Yes 250 mL, Memoria (bolus) IV 12-03 999 ml/hr, l 11:40: Route: IV, Drug Form: INJ, Dosing Weight 91.364, kg, PRN, PRN Blood Glucose Results, Start date: 12/03/22 5:40:00 DEPLOYMENT TECHNICIAN, Duration: 30 day, Stop date: 01/02/23 6:39:00 CDT, Infuse over: 0.3 hr, 0 Dextrose 2022-0 No 25 mL, Memoria 50% Syringe 12-03 Route: l (D50W) 10:26: IVP, Dosing Weight 91.364, kg, PRN, PRN Blood Glucose Results, Start date: 12/03/22 4:26:00 DEPLOYMENT TECHNICIAN, Duration: 30 day, Stop date: 01/02/23 5:25:00 CDT glucagon 3-0 Yes 1 mg, Memoria 12-03 Route: IM, l 10:26: Drug form: PDR/INJ, PRN, Dosing Weight 91.364, kg, PRN Blood Glucose Results, Start date: 12/03/22 4:26:00 DEPLOYMENT TECHNICIAN, Duration: 30 day, Stop date: 01/02/23 5:25:00 CDT, 0 sevelamer 2021-0 Yes 800mg Take 800 Uni vers carbonate 6-29 mg by ity of ([place]EL[place] 09:45: mouth. [place] ORAL) [address] [place] [address] Branch metoprolol 0 Yes Take by Univ ers succinate 6-29 mouth. ity of 25 mg CSpX 09:45: [address] sevelamer 2021-0 Yes 800mg Take 800 Uni vers carbonate 6-29 mg by ity of ([place] 09:45: mouth. [place] ORAL[address] metoprolol Yes Take by [facility] ers succinate 6-29 mouth. ity of 25 mg CSpX 09:45: [address] propofol 2017-09 No Route: IV, Mem oria (ANES) 2- Drug form: l 14:09: INJ, ONCE, [place] 00 Stop date: 09/24/18 8:09:00 DEPLOYMENT TECHNICIAN Sodium 2017-09 No Route: IV, Memor ia Chloride 2- Total l 0.9% IV 13:40: Volume: [place] (ANES) 500 00 500, Start mL date: 09/24/18 7:40:00 DEPLOYMENT TECHNICIAN, Stop date: 09/24/18 8:40:00 DEPLOYMENT TECHNICIAN polyethylen 2017-09 No See Memori a e glycol - Instructio l 3350 with 20:43: ns, as Luisito n electrolyte 00 directed, s oral # 4,000 powder for mL, 0 solution Refill(s), Pharmacy: [id number], this is the generic of Golytely being used as a bowel prep, not Miralax losartan 50 2017-09 Yes 50 mg = 1 M emoria mg oral 1-27 tab, PO, l tablet 20:08: Daily, 0 Momo 00 Refill(s) Saline 2017-09 No Notes: Memoria Flush 0.9% 0-30 (Same as: l 17:40: BD [place] 00 Posiflush) Sodium 2017-09 No 500 mL, Memoria Chloride 0-30 500 ml/hr, l 0.9% 17:40: Infuse [place] (Bolus) IV 00 Over: 1 hr, Route: IV, 500, Drug form: INJ, ONCE, Priority: STAT, Dosing Weight 93.182 kg, Start date: 07/28/18 12:40:00 CDT, Stop date: 07/28/18 12:40:00 CDT clindamycin No 300 mg = 1 Memoria 300 mg oral 7-17 cap, PO, l capsule 15:00: Q6H, X 10 Joanna nn 00 day, # 40 cap, 0 Refill(s), Pharmacy: [id number] Mupirocin No 1 appl, Memor ia 0.02 MG/MG 7-17 TOP, TID, l Topical 15:00: PRN as [place] Ointment 00 needed, [Bactroban] Apply to affected area(s), X 10 day, # 22 gm, 0 Refill(s), Pharmacy: [id number] Cefazolin No Notes: Memori a 03-02 (Same As: l 14:00: Ancef, Kefzol) MEDICATION WASTE Product Size: 1000 mg Product Wasted: ___ mg Restoril No Notes: Memoria 03-02 (Same As: l 13:48: Restoril) metoprolol Yes 50 mg = 1 Me moria tartrate 50 5-30 tab, PO, l mg oral 20:14: Q12H, # [place] tablet 00 180 tab, 1 Refill(s), Pharmacy: [facility] amLODIPine Yes 10 mg = 1 Me moria 10 mg oral 5-30 tab, PO, l tablet 20:13: Daily, # [place] 00 90 tab, 0 Refill(s), Pharmacy: [id number] Fentanyl Yes Notes: Memoria 01-01 (Same as: l 15:40: Sublimaze) Preservati ve free. Flumazenil Yes Notes: Memor ia 01-01 (Same as: l 15:40: Romazicon) Naloxone Yes Notes: Memoria 05 Same as l 15:40: Narcan Acetaminoph No 1,000 mg, M emoria en 01-01 Route: l 15:40: IVPB, Drug form: INJ, ONCE, Dosing Weight 103.182, kg, PRN Pain Score 1-3, Start date: 01/01/18 10:40:00 CDT Ondansetron No 4 mg, Memor ia 01-01 Route: l 15:40: IVP, ONCE, Dosing Weight 103.182, kg, PRN Nausea & Vomiting, Start date: 01/01/18 10:40:00 CDT protamine No Route: IV, Me moria (ANES) 01-01 Drug form: l 15:27: INJ, ONCE, Stop date: 01/01/18 10:27:00 CDT ondansetron 2017- No Route: IV, Memoria (ANES) 4- Drug form: l 15:27: INJ, ONCE, Stop date: 01/01/18 10:27:00 CDT heparin 2017-0 No Route: IV, Tico jessi (ANES) 4- Drug form: l 14:49: INJ, ONCE, Stop date: 01/01/18 9:49:00 CDT glycopyrrol No Route: IV, Memoria ate (ANES) 01-01 Drug form: l 14:34: INJ, ONCE, Stop date: 01/01/18 9:34:00 CDT propofol No Route: IV, Mem oria (ANES) 4 Drug form: l 14:04: INJ, ONCE, Stop date: 01/01/18 9:04:00 CDT lidocaine 2017-0 No Route: IV, Me moria (ANES) 4-05 Drug form: l 14:04: INJ, ONCE, Stop date: 01/01/18 9:04:00 CDT midazolam 2017-0 No Route: IV, Me moria (ANES) 4-05 Drug form: l 14:04: SOLN, ONCE, Stop date: 01/01/18 9:04:00 CDT fentaNYL 2017-0 No Route: IV, Mem oria (ANES) 4-05 Drug form: l 14:04: INJ, ONCE, Stop date: 01/01/18 9:04:00 CDT Renvela 2017-0 Yes Notes: Memoria 4-05 Same as: l 14:00: Renvela multivitami 2017-0 Yes Notes: Tico jessi n 4-05 (Same l 14:00: as:Thera) WASTE: F/P - Black; E - Municipal Trash Bin Take with food. phenylephri No Route: IV, Memoria ne (ANES) 4-05 Drug form: l 100 13:44: INJ, Start Momo 00 date: 01/01/18 8:44:00 CDT, Stop date: 01/01/18 9:44:00 CDT Zofran No Notes: Memoria -05 (Same as: l 13:43: Zofran) Momo MEDICATION WASTE Product Size: 4 mg Product Wasted: ___ mg NS 0.45% IV No 1,000 mL, M emoria 1,000 mL 01-01 Rate: 50 l 13:43: ml/hr, [place] Infuse over: 20 hr, Route: IV, Dosing Weight 103.182 kg, Total Volume: 1,000, Start date: 01/01/18 8:43:00 CDT, Duration: 30 day, Stop date: 01/31/18 8:42:00 CDT, 2.24, m2 Morphine No Notes: Memoria - (Same l 13:43: as:MORPhin [place] 00 e Sulfate) Acetaminoph No Notes: Do M emoria en -05 not exceed l 13:43: 4 gm/day. Momo (Same as: Tylenol) acetaminoph No Notes: Do M emoria en-codeine - not exceed l #3 13:43: 4gm/day of Momo 00 acetaminop hen. (Same as: Tylenol with Codeine # 3) Acetaminoph No Notes: Tico jessi en 325 MG / - (Same as: l Hydrocodone 13:43: [place] Joanna nn Bitartrate 00 325/5) Do 5 MG Oral not exceed Tablet 4gm/day of acetaminop hen. vancomycin No Route: IV, M emoria (ANES) 2000 01-01 Drug form: l mg 13:39: INJ, Start Momo 00 date: 01/01/18 8:39:00 CDT, Stop date: 01/01/18 9:39:00 CDT Sodium No Route: IV, Memor ia Chloride -05 Total l 0.9% IV 13:31: Volume: Momo (ANES) 500 00 500, Start mL date: 01/01/18 8:31:00 CDT, Stop date: 01/01/18 9:31:00 CDT Vitamin 2017-0 No 1 tab, Memoria B-100 2-16 Route: PO, l 15:00: Dosing Weight 100.057, kg, Daily, Start date: 11/14/17 9:00:00 DEPLOYMENT TECHNICIAN, Duration: 30 day, Stop date: 12/13/17 9:00:00 CDT Renvela No Notes: Memoria 2-15 Same as: l 23:00: Renvela Fentanyl No Notes: Memoria 2-15 (Same as: l 21:23: Sublimaze) Preservati ve free. Naloxone No Notes: Memoria 2-15 Same as l 21:23: Narcan Flumazenil No Notes: Memor ia 2-15 (Same as: l 21:23: Romazicon) Acetaminoph No Notes: Tico jessi en 2-15 Infuse l 21:23: over 15 minutes Do not exceed 4gm/day of acetaminop hen MEDICATION WASTE Product Size: 1000 mg Product Wasted: ___ mg Ondansetron No Notes: Tico jessi 2-15 (Same as: l 21:23: Zofran) MEDICATION WASTE Product Size: 4 mg Product Wasted: ___ mg ondansetron No Route: IV, Memoria (ANES) 2-15 Drug form: l 20:57: INJ, ONCE, Stop date: 11/13/17 14:57:00 DEPLOYMENT TECHNICIAN ePHEDrine No Route: IV, Me moria (ANES) 2-15 Drug form: l 20:44: INJ, ONCE, Stop date: 11/13/17 14:44:00 DEPLOYMENT TECHNICIAN propofol No Route: IV, Mem oria (ANES) 2-15 Drug form: l 20:29: INJ, ONCE, Stop date: 11/13/17 14:29:00 DEPLOYMENT TECHNICIAN lidocaine No Route: IV, Me moria (ANES) 2-15 Drug form: l 20:24: INJ, ONCE, Stop date: 11/13/17 14:24:00 DEPLOYMENT TECHNICIAN fentaNYL No Route: IV, Mem oria (ANES) 2-15 Drug form: l 20:24: INJ, ONCE, [place] 00 Stop date: 11/13/17 14:24:00 DEPLOYMENT TECHNICIAN midazolam 2017- No Route: IV, Me moria (ANES) 2-15 Drug form: l 20:24: SOLN, [place] 00 ONCE, Stop date: 11/13/17 14:24:00 DEPLOYMENT TECHNICIAN phenylephri No Route: IV, Memoria ne (ANES) 2-15 Drug form: l 100 20:07: INJ, Start Momo microgram 00 date: 11/13/17 14:07:00 DEPLOYMENT TECHNICIAN, Stop date: 11/13/17 15:07:00 DEPLOYMENT TECHNICIAN Cefazolin No Notes: Memori a 2-15 (Same As: l 20:00: Ancef, Kefzol) MEDICATION WASTE Product Size: 1000 mg Product Wasted: ___ mg vancomycin No Route: IV, M emoria (ANES) 2000 2-15 Drug form: l mg 20:00: INJ, Start [place] 00 date: 11/13/17 14:00:00 DEPLOYMENT TECHNICIAN, Stop date: 11/13/17 15:00:00 DEPLOYMENT TECHNICIAN Restoril No Notes: Memoria 2-15 (Same As: l 19:59: Restoril) Sodium No Route: IV, Memor ia Chloride 2-15 Total l 0.9% IV 19:54: Volume: Momo (ANES) 500 00 500, Start mL date: 11/13/17 13:54:00 DEPLOYMENT TECHNICIAN, Stop date: 11/13/17 14:54:00 DEPLOYMENT TECHNICIAN acetaminoph No Notes: Do M emoria en-codeine 2-15 not exceed l #3 19:23: 4gm/day of acetaminop hen. (Same as: Tylenol with Codeine # 3) Acetaminoph No Notes: Do M emoria en 2-15 not exceed l 19:23: 4 gm/day. (Same as: Tylenol) Morphine No Notes: Memoria 2-15 (Same l 19:23: as:MORPhin e Sulfate) Acetaminoph No Notes: Do M emoria en 325 MG / 2-15 not exceed l Hydrocodone 19:23: 4gm/day of Momo Bitartrate 00 acetaminop 10 MG Oral hen. (Same Tablet as: [place] 325/10) Acetaminoph No Notes: Tico jessi en 325 MG / 2-15 (Same as: l Hydrocodone 19:23: [place] Joanna nn Bitartrate 00 325/5) Do 5 MG Oral not exceed Tablet 4gm/day of acetaminop hen. NS 0.45% IV No 1,000 mL, M emoria 1,000 mL 2-15 Rate: 50 l 19:23: ml/hr, Infuse over: 20 hr, Route: IV, Dosing Weight 100.057 kg, Total Volume: 1,000, Start date: 11/13/17 13:23:00 DEPLOYMENT TECHNICIAN, Duration: 30 day, Stop date: 12/13/17 13:22:00 CDT, 2.2, m2 Zofran No Notes: Memoria 2-15 (Same as: l 19:23: Zofran) [place] 00 MEDICATION WASTE Product Size: 4 mg Product Wasted: ___ mg sevelamer Yes 1,600 mg = Me moria carbonate 2-14 2 tab, PO, l 800 MG Oral 16:06: TID, with H ermann Tablet 00 meals and [Renvela] take 1 tablet po if snack., 0 Refill(s) Renvela 800 Yes 1,600 mg = Memoria mg oral 2-14 2 tab, PO, l tablet 16:06: TID, with Luisito n 00 meals and take 1 tablet po if snack., 0 Refill(s) Vitamin No Notes: Memoria B-100 06-27 (Same l 14:00: as:Thera) WASTE: F/P - Black; E - Municipal Trash Bin Take with food. Renvela No Notes: Memoria 06-26 Same as: l 18:00: Renvela [place] Ofirmev No 1,000 mg, Memor ia 06-26 Route: IV, l 17:24: ONCE, Momo Dosing Weight 100, kg, Start date: 06/26/17 12:24:00 CDT, Stop date: 06/26/17 12:24:00 CDT protamine No Route: IV, Me moria (ANES) 06-26 Drug form: l 16:53: INJ, ONCE, Stop date: 06/26/17 11:53:00 CDT ketOROLAC No IV, ONCE Tico jessi (ANES) 06-26 l 16:53: neostigmine No Route: IV, Memoria (ANES) 06-26 Drug form: l 16:53: INJ, ONCE, Stop date: 06/26/17 11:53:00 CDT glycopyrrol No Route: IV, Memoria ate (ANES) 06-26 Drug form: l 16:53: INJ, ONCE, Stop date: 06/26/17 11:53:00 CDT heparin No Route: IV, Tico jessi (ANES) 06-26 Drug form: l 16:37: INJ, ONCE, Stop date: 06/26/17 11:37:00 CDT fentaNYL No Route: IV, Mem oria (ANES) 06-26 Drug form: l 16:17: INJ, ONCE, Stop date: 06/26/17 11:17:00 CDT midazolam No Route: IV, Me moria (ANES) 06-26 Drug form: l 16:17: SOLN, ONCE, Stop date: 06/26/17 11:17:00 CDT ePHEDrine No Route: IV, Me moria (ANES) 06-26 Drug form: l 16:12: INJ, ONCE, Stop date: 06/26/17 11:12:00 CDT phenylephri No Route: IV, Memoria ne (ANES) 06-26 Drug form: l 16:12: INJ, ONCE, Stop date: 06/26/17 11:12:00 CDT propofol No Route: IV, Mem oria (ANES) 06-26 Drug form: l 15:57: INJ, ONCE, Stop date: 06/26/17 10:57:00 CDT rocuronium No Route: IV, Jossy emoria (ANES) 06-26 Drug form: l 15:57: INJ, ONCE, [place] 00 Stop date: 06/26/17 10:57:00 CDT sodium No 1,000 mL, Memori a chloride 06-26 Rate: 50 l 0.45% 1000 15:42: ml/hr, Joanna nn ml INJ 00 Infuse 1,000 mL over: 20 hr, Route: IV, Dosing Weight 100 kg, Total Volume: 1,000, Start date: 06/26/17 10:42:00 CDT, Duration: 30 day, Stop date: 07/26/17 10:41:00 CDT Zofran No Notes: Memoria 06-26 (Same as: l 15:42: Zofran) [place] 00 MEDICATION WASTE Product Size: 4 mg Product Wasted: ___ mg Acetaminoph No Notes: Do M emoria en 06-26 not exceed l 15:42: 4 gm/day. Momo 00 (Same as: Tylenol) Morphine No Notes: Memoria 06-26 (Same l 15:42: as:MORPhin [place] 00 e Sulfate) Acetaminoph No Notes: Do M emoria en 325 MG / 06-26 not exceed l Hydrocodone 15:42: 4gm/day of Momo Bitartrate 00 acetaminop 10 MG Oral hen. (Same Tablet as: [place] 325/10) Acetaminoph No Notes: Tico jessi en 325 MG / 06-26 (Same as: l Hydrocodone 15:42: [place] Joanna nn Bitartrate 00 325/5) Do 5 MG Oral not exceed Tablet 4gm/day of acetaminop hen. sodium No Route: IV, Memor ia chloride 06-26 Total l 0.9% 500 ml 15:24: Volume: Her bertrand INJ (ANES) 00 500, Start date: 06/26/17 10:24:00 CDT, Stop date: 06/26/17 11:24:00 CDT vancomycin No Route: IV, M emoria (ANES) 06-26 Drug form: l (ANES) 15:22: INJ, Start Joanna nn 00 date: 06/26/17 10:22:00 CDT, Stop date: 06/26/17 11:22:00 CDT Cefazolin No Notes: Memori a 06-26 Same as: l 13:00: Ancef Hydralazine Yes Notes: Tico jessi 06-26 (Same as: l 12:58: Apresoline ) Push over 5 minutes Ondansetron No Notes: Tico jessi 06-26 (Same as: l 12:42: Zofran) MEDICATION WASTE Product Size: 4 mg Product Wasted: ___ mg Flumazenil No Notes: Memor ia 06-26 (Same as: l 12:42: Romazicon) Naloxone No Notes: Memoria 06-26 Same as l 12:42: Narcan Fentanyl No Notes: Memoria 06-26 (Same as: l 12:42: Sublimaze) Preservati ve free. Hydromorpho No Notes: Tico jessi ne 06-26 (Same as: l 12:42: Dilaudid) Metoprolol No Notes: Memor ia 06-26 (Same as: l 12:42: Lopressor) Push over 2 minutes Hydralazine No Notes: Tico jessi 06-26 (Same as: l 12:42: Apresoline ) Push over 5 minutes sodium No 1,000 mL, Memori a chloride 06-26 Rate: 125 l 0.9% 1000 12:42: ml/hr, Luisito n ml INJ 00 Infuse 1,000 mL over: 8 hr, Route: IV, Dosing Weight 100 kg, Total Volume: 1,000, Start date: 06/26/17 7:42:00 CDT, Duration: 30 day, Stop date: 07/26/17 7:41:00 CDT metoprolol Yes 50 mg = 1 Me moria tartrate 50 06-26 tab, PO, l mg oral 12:39: Q12H, 0 Momo 00 Refill(s) Restoril No Notes: Memoria 06-26 (Same As: l 12:38: Restoril) Vitamin Yes 1 tab, PO, Tico jessi B-100 9-20 Daily, 0 l 17:44: Refill(s) Losartan No Notes: Memoria 05-16 (Same as: l 14:00: Cozaar) Kayexalate No 30 gm, Memor ia 05-15 Route: PO, l 19:14: Drug form: SUSP, ONCE, Dosing Weight 101, kg, Start date: 05/15/17 14:14:00 CDT, Stop date: 05/15/17 14:14:00 CDT Fentanyl No Notes: Memoria 05-15 (Same as: l 18:13: Sublimaze) Preservati ve free. Ondansetron No Notes: Tico jessi 05-15 (Same as: l 18:13: Zofran) MEDICATION WASTE Product Size: 4 mg Product Wasted: ___ mg Acetaminoph No Notes: Tico jessi en 05-15 Infuse l 18:13: over 15 minutes Do not exceed 4gm/day of acetaminop hen MEDICATION WASTE Product Size: 1000 mg Product Wasted: ___ mg Flumazenil No Notes: Memor ia 05-15 (Same as: l 18:13: Romazicon) Naloxone No Notes: Memoria 05-15 Same as l 18:13: Narcan Renvela No Notes: Memoria 05-15 Same as: l 18:00: Renvela ondansetron No Route: IV, Memoria (ANES) 05-15 Drug form: l 17:57: INJ, ONCE, Stop date: 05/15/17 12:57:00 CDT propofol No Route: IV, Mem oria (ANES) 05-15 Drug form: l 17:57: INJ, ONCE, Stop date: 05/15/17 12:57:00 CDT phenylephri No Route: IV, Memoria ne (ANES) 05-15 Drug form: l 17:51: INJ, ONCE, Stop date: 05/15/17 12:51:00 CDT ePHEDrine No Route: IV, Me moria (ANES) 05-15 Drug form: l 17:51: INJ, ONCE, Stop date: 05/15/17 12:51:00 CDT heparin No Route: IV, Tico jessi (ANES) 05-15 Drug form: l 17:46: INJ, ONCE, Stop date: 05/15/17 12:46:00 CDT Zofran No Notes: Memoria 05-15 (Same as: l 17:43: Zofran) MEDICATION WASTE Product Size: 4 mg Product Wasted: ___ mg sodium No 1,000 mL, Memori a chloride 05-15 Rate: 50 l 0.45% 1000 17:43: ml/hr, Joanna nn ml INJ 00 Infuse 1,000 mL over: 20 hr, Route: IV, Dosing Weight 101 kg, Total Volume: 1,000, Start date: 05/15/17 12:43:00 CDT, Duration: 30 day, Stop date: 06/14/17 12:42:00 CDT Acetaminoph No Notes: Tico jessi en 325 MG / 05-15 (Same as: l Hydrocodone 17:43: [place] Joanna nn Bitartrate 00 325/5) Do 5 MG Oral not exceed Tablet 4gm/day of acetaminop hen. Acetaminoph No Notes: Do M emoria en 325 MG / 05-15 not exceed l Hydrocodone 17:43: 4gm/day of [place] Bitartrate 00 acetaminop 10 MG Oral hen. (Same Tablet as: [place] 325/10) Acetaminoph No Notes: Do M emoria en 05-15 not exceed l 17:43: 4 gm/day. (Same as: Tylenol) protamine No Route: IV, Me moria (ANES) 05-15 Drug form: l (ANES) 17:37: INJ, Start Joanna date: 05/15/17 12:37:00 CDT, Stop date: 05/15/17 13:37:00 CDT fentaNYL No Route: IV, Mem oria (ANES) 05-15 Drug form: l 17:36: INJ, ONCE, Stop date: 05/15/17 12:36:00 CDT phenylephri No Route: IV, Memoria ne (ANES) 05-15 Drug form: l (ANES) 17:26: INJ, Start Joanna date: 05/15/17 12:26:00 CDT, Stop date: 05/15/17 13:26:00 CDT ePHEDrine No Route: IV, Me moria (ANES) 05-15 Drug form: l 17:26: INJ, ONCE, Stop date: 05/15/17 12:26:00 CDT phenylephri No Route: IV, Memoria ne (ANES) 05-15 Drug form: l 17:21: INJ, ONCE, Stop date: 05/15/17 12:21:00 CDT fentaNYL No Route: IV, Mem oria (ANES) 05-15 Drug form: l 17:16: INJ, ONCE, Stop date: 05/15/17 12:16:00 CDT midazolam No Route: IV, Me moria (ANES) 05-15 Drug form: l 17:11: SOLN, ONCE, Stop date: 05/15/17 12:11:00 CDT propofol No Route: IV, Mem oria (ANES) 05-15 Drug form: l 17:11: INJ, ONCE, Stop date: 05/15/17 12:11:00 CDT vancomycin No Route: IV, M emoria (ANES) 05-15 Drug form: l (ANES) 16:46: INJ, Start Joanna date: 05/15/17 11:46:00 CDT, Stop date: 05/15/17 12:46:00 CDT sodium No Route: IV, Memor ia chloride 05-15 Total l 0.9% 500 ml 16:39: Volume: Her bertrand INJ (ANES) 00 500, Start date: 05/15/17 11:39:00 CDT, Stop date: 05/15/17 12:39:00 CDT Restoril No Notes: Memoria 05-15 (Same As: l 13:49: Restoril) Cefazolin No Notes: Memori a - Same as: l 13:00: Ancef Momo 00 sevelamer Yes 800 mg = 1 Me moria carbonate 8-10 tab, PO, l 800 MG Oral 18:46: PRN, with H ermann Tablet 00 snacks [Renvela] heparin No 4,000 Memoria 04-10 unit, 4 l 23:00: mL, Route: Momo IV, Drug form: INJ, ONCALL, Start date: 04/10/17 18:00:00 CDT, Duration: 1 doses or times Sodium No 2,000 mL, Memori a Chloride 04-10 Route: IV, l 0.9% IV 23:00: Start [place] 00 date: 04/10/17 18:00:00 CDT, Duration: 1 doses or times famotidine No Notes: Memor ia 04-10 (Same as: l 14:00: Pepcid) Can be dilute in 5-10cc NS IVP: Slow IV push over at least 2 minutes. Streptococc No 0.5 mL, Mem oria us 04-10 Route: IM, l pneumoniae 02:41: ONCALL, Herm elidia serotype 1 27 Start capsular date: antigen 04/09/17 diphtheria 21:41:27 [id number] CDT, Stop protein date: conjugate 05/09/17 vaccine / 21:36:27 Streptococc CDT us pneumoniae serotype 14 capsular antigen diphtheria [id number] protein conjugate vaccine / Streptococc us pneumoniae serotype 18C capsular antigen d heparin No Notes: Memoria 04-10 porcine l 00:10: heparin Famotidine No 20 mg, Memor ia - Route: l 00:08: IVP, BID, Momo Dosing Weight 108, kg, Priority: STAT, Start date: 04/09/17 19:08:00 CDT, Duration: 30 day, Stop date: 05/09/17 17:00:00 CDT Hydralazine No Notes: [place] jessi 7-13 (Same as: l 00:08: Apresoline [place] 00 ) Push over 5 minutes Acetaminoph No Notes: [place] jessi en 325 MG / 04-10 (Same as: l Hydrocodone 00:06: [place] Joanna nn Bitartrate 00 325/5) Do 5 MG Oral not exceed Tablet 4gm/day of acetaminop hen. Docusate No Notes: Memoria 7-13 (Same as: l 00:06: Colace) Momo 00 (Do Not Crush) Ondansetron No Notes: [place] 7-13 (Same as: l 00:06: Zofran) Momo 00 MEDICATION WASTE Product Size: 4 mg Product Wasted: ___ mg Acetaminoph No Notes: Do M emoria en - not exceed l 00:06: 4 gm/day. [place] (Same as: Tylenol) Aspirin 325 No Notes: Itco jessi MG Oral 6-20 Take with l Tablet 14:00: food. [place] 00 24 HR Yes 30 mg = 1 [facility] Nifedipine 6-19 tab, PO, l 30 MG 20:55: Daily, # Momo Extended 00 30 tab, 1 Release Refill(s) Tablet 24 HR No 30 mg = 1 [facility] Nifedipine 6-19 tab, PO, l 30 MG 17:05: Daily, # Momo Extended 00 30 tab, 2 Release Refill(s) Tablet Sodium No 2,000 mL, Memori a Chloride 6-19 8000 l 0.154 13:48: ml/hr, Momo MEQ/ML 00 Infuse Injectable Over: 15 Solution minutes, Route: IV, 2,000, Drug form: INJ, PRN, Dosing Weight 107.273 kg, Start date: 03/17/17 8:48:00 CDT, Duration: 24 hr, Stop date: 03/18/17 8:47:00 CDT, For Use by Dialysis nurse ONLY, PRN Dialysis heparin No 1,000 Mem[facility] 6-19 unit, 1 l 13:48: mL, Route: Momo 00 IV Lock, Drug form: INJ, PRN, Dosing Weight 107.273, kg, PRN Dialysis, Start date: 03/17/17 8:48:00 CDT, Duration: 30 day, Stop date: 04/16/17 8:47:00 CDT Losartan 2017-0 No Notes: [facility] -17 (Same as: l 14:00: Cozaar) Momo 00 metoprolol Yes 50 mg = 1 Me moria tartrate 50 6-16 tab, PO, l mg oral 18:20: Q12H, # 60 Herm elidia tablet 00 tab, 1 Refill(s) heparin No 4,100 [facility] 6-16 unit, 4.1 l 13:47: mL, Route: [place] 00 IV, Drug form: INJ, ONCE, Start date: 03/14/17 8:47:00 CDT, Stop date: 03/14/17 8:47:00 CDT sodium 2016- No 1,000 mL, Memori a chloride 16 Rate: For l 0.9% 1000 13:44: HD Use, Joanna nn ml INJ 00 Route: IV, 1,000 mL Dosing Weight 107.273 kg, Total Volume: 1,000, Start date: 03/14/17 8:44:00 CDT, Stop date: 03/14/17 23:59:00 CDT Sodium 2017- No IV, 2000 [facility] Chloride 6-15 ml/hr, l 0.9% IV 00:34: PRN, PRN Luisito n 00 Dialysis, Start date: 03/12/17 19:34:00 CDT, 2,000 ml Sodium 0 No 2,000 ml, Memori a Chloride 14 Route: IV, l 0.0769 23:02: Drug Form: Joanna nn MEQ/ML 00 SOLN, Irrigation Dosing Solution Weight 107.273, kg, PRN, PRN Dialysis, Start date: 03/12/17 18:02:00 CDT, Duration: 30 day, Stop date: 04/11/17 18:01:00 CDT heparin 2017-0 No 10,000 [facility] 6-14 unit, 10 l 22:55: mL, Route: [place] 00 INJ, Drug form: INJ, PRN, Dosing Weight 107.273, kg, PRN Dialysis, Start date: 03/12/17 17:55:00 CDT, Duration: 30 day, Stop date: 04/11/17 17:54:00 CDT Nifedical No Notes: Memori a XL 6-13 (Same as: l 23:56: Adalat CC, [place] 00 Procardia XL) Give on empty stomach. Take 1 hour before or 2 hours after meal; "Avoid grapefruit and grapefruit juice". Do not crush Protonix No Notes: [facility] 6-13 Tablet l 12:30: should not [place] 00 be chewed or crushed. (Same as: Protonix) Hydralazine No Notes: Tico jessi - (Same as: l 02:05: Apresoline ) Push over 5 minutes metoprolol No Notes: Memor ia tartrate -12 (Same as: l 23:59: Lopressor) [place] 00 Sodium No 1,000 mL, Memori a Chloride 03-10 Rate: 125 l 0.0769 23:57: ml/hr, Momo MEQ/ML 00 Infuse Injectable over: 8 Solution hr, Route: IV, Dosing Weight 102.955 kg, Total Volume: 1,000, Start date: 03/10/17 18:57:00 CDT, Duration: 30 day, Stop date: 04/09/17 18:56:00 CDT Nitroglycer No Notes: Tico jessi in -12 (Same l 23:57: as:Nitroqu Momo 00 ick, Nitrostat) "Do Not Crush" Sublingual tablet Hydralazine No Notes: Tico jessi -12 (Same as: l 23:57: Apresoline ) Push over 5 minutes Albuterol No Notes: Memori a 0.833 MG/ML -12 (Same as: l / 23:57: Duoneb) Momo Ipratropium 00 [place] 0.167 MG/ML Inhalant Solution [DuoNeb] Saline No Notes: [facility] Flush 0.9% 03-10 (Same as: l 23:57: BD [place] 00 Posiflush) Acetaminoph No Notes: Tico jessi en 325 MG / 12 (Same as: l Hydrocodone 23:57: [place] Joanna nn Bitartrate 00 325/5) Do 5 MG Oral not exceed Tablet 4gm/day of acetaminop hen. Acetaminoph No Notes: Do M emoria en -12 not exceed l 23:57: 4 gm/day. Momo (Same as: Tylenol) Morphine No Notes: Memoria 12 (Same l 23:57: as:MORPhin [place] 00 e Sulfate) Ondansetron No Notes: Tico jessi -12 (Same as: l 23:57: Zofran) [place] 00 MEDICATION WASTE Product Size: 4 mg Product Wasted: ___ mg Rocephin No 1 gm, Memoria 03-10 Route: l 23:06: IVPB, Drug form: PDR/INJ, ONCE, Dosing Weight 102.955, kg, Priority: STAT, Start date: 03/10/17 18:06:00 CDT, Duration: 1 doses or times, Stop date: 03/10/17 18:06:00 CDT, ABX Indication : Urinary Tract Infection Saline No Notes: [facility] Flush 0.9% 03-10 (Same as: l 21:57: BD Momo Posiflush) Ascorbic No 1 tab, [facility]oria Acid / 11-27 Route: PO, l Biotin / 15:00: Drug Form: Her bertrand Folic Acid 00 TAB, / Niacin / Dosing pantothenat Weight e / 87.7, kg, pyridoxine Daily, / Start Riboflavin date: / Thiamine 11/27/13 / Vitamin B 9:00:00, 12 Duration: 30 day, Stop date: 12/26/13 9:00:00Giv e with food. (Same As : Therapeuti c multivitam ins) Folic Acid No 1 mg, 1 Tico jessi - tab, l 15:00: Route: PO, [place] 00 Drug form: TAB, Daily, Dosing Weight 87.7, kg, Start date: 11/27/13 9:00:00, Duration: 30 day, Stop date: 12/26/13 9:00:00([facility] as: Folvite) Thiamine No 100 mg, 1 Tico jessi 3-01 tab, l 15:00: Route: PO, [place] 00 Drug form: TAB, Daily, Dosing Weight 87.7, kg, Start date: 11/27/13 9:00:00, Duration: 30 day, Stop date: 12/26/13 9:00:00([facility] As: Vitamin B1) thiamine Yes 100 mg = 1 Mem oria 100 mg oral 2-28 tab, PO, l tablet 19:21: Daily, # [place] 00 30 tab, 0 Refill(s) Multiple Yes 1 tab, PO, Mem oria Vitamins 2-28 Daily, # l oral tablet 19:21: 30 tab, 0 H ermann 00 Refill(s) metoprolol Yes 50 mg = 1 Me moria tartrate 50 2-28 tab, PO, l mg oral 19:21: Q12H, # 60 Herm elidia tablet 00 tab, 0 Refill(s) Folic Acid Yes 1 mg = 1 Mem oria 1 MG Oral 2-28 tab, PO, l Tablet 19:21: Daily, # [place] 00 30 tab, 0 Refill(s) amLODIPine Yes 10 mg = 2 Me moria 5 mg oral 2-28 tab, PO, l tablet 19:21: Daily, # Momo 00 30 tab, 0 Refill(s) Acetaminoph Yes 1 tab, PO, Memoria en 325 MG / 2-28 Q6H, Pain, l Hydrocodone 19:21: # 30 tab, H ermann Bitartrate 00 0 7.5 MG Oral Refill(s) Tablet [[place] 7.5/325] Acetaminoph No 1 tab, Tico jessi en 325 MG / 2-28 Route: PO, l Hydrocodone 19:19: Drug Form: [place] Bitartrate 00 TAB, 7.5 MG Oral Dosing Tablet Weight [[place] 87.7, kg, 7.5/325] Q6H, PRN Pain, Start date: 11/26/13 13:19:00, Duration: 30 day, Stop date: 12/26/13 13:18:00Sa me as [place] 325-7.5mg Do not exceed 4gm/day of acetaminop henSilvio Baumannvasc No 10 mg, 2 Memori a 2-26 tab, l 21:25: Route: PO, Momo 00 Drug form: TAB, Daily, Dosing Weight 87.7, kg, Priority: NOW, Start date: 11/24/13 15:25:00, Duration: 30 day, Stop date: 12/24/13 9:00:00(Sa nh as: Norvasc) Ceftriaxone No 1 gm, Memor ia 2-26 Route: IV, l 10:07: ONCE, Dosing Weight 87.7, kg, Priority: STAT, Start date: 11/24/13 4:07:00, Stop date: 11/24/13 4:07:00([facility] As: Rocephin). Use with 100ml NS mini-bag PLUS and infuse over 30 min Vancomycin No 1 gm, 200 Me moria 2-26 mL, Route: l 10:06: IV, Drug form: INJ, ONCE, Dosing Weight 87.7, kg, Priority: STAT, Start date: 11/24/13 4:06:00, Stop date: 11/24/13 4:06:00 Tylenol No 650 mg, 2 Memor ia 2-26 tab, l 10:06: Route: NG, Drug form: TAB, Q4H, Dosing Weight 87.7, kg, PRN as needed for fever, Start date: 11/24/13 4:06:00, Duration: 30 day, Stop date: 12/24/13 4:05:00Do not exceed 4 gm/day. (Same as: Tylenol) Lopressor No 50 mg, 1 Tico jessi 2-26 tab, l 03:00: Route: PO, Momo 00 Drug form: TAB, Q12H, Dosing Weight 87.7, kg, Start date: 11/23/13 21:00:00, Stop date: 12/23/13 9:00:00(Sa me as: Lopressor) pantoprazol No 40 mg, Tico jessi e 2-25 Route: l 15:00: IVP, [place] 00 Daily, Dosing Weight 90.909, kg, Start date: 11/23/13 9:00:00, Duration: 30 day, Stop date: 12/22/13 9:00:00For IV push reconstitu te with 10 ml 0.9% sodium chloride and push over 2 minutes. (Same as: Protonix) Saline 2014-0 No 5 ml, Memoria Flush 0.9% 2-25 Route: l 03:00: IVP, Drug Form: INJ, Dosing Weight 90.909, kg, Q12H, Start date: 11/22/13 21:00:00, Duration: 30 day, Stop date: 12/22/13 9:00:00(Sa me as: BD Posiflush) Docusate 2013-0 No 100 mg, 10 Mem oria 2-25 mL, Route: l 03:00: PO, Drug form: LIQ, Q12H, Dosing Weight 90.909, kg, Start date: 11/22/13 21:00:00, Stop date: 12/22/13 9:00:00(Sa me as: Colace) Sodium 2013-0 No 1,000 mL, Memori a Chloride 2-24 Rate: 75 l 0.9% IV 22:38: ml/hr, Momo 1,000 mL 00 Infuse over: 13.3 hr, Route: IV, Dosing Weight 87.7 kg, Total Volume: 1,000, Start date: 11/22/13 16:38:00, Duration: 3 day, Stop date: 11/25/13 16:37:00 Sodium 2014-0 No 1,000 mL, Memori a Chloride 2-24 Rate: 75 l 0.154 22:08: ml/hr, [place] MEQ/ML 00 Infuse Injectable over: 13.5 Solution hr, Route: IV, Dosing Weight 87.7 kg, Total Volume: 1,011.2, Start date: 11/22/13 16:08:00, Duration: 3 day, Stop date: 11/25/13 16:07:00 Ativan 2014-0 No 1 mg, 0.5 Memori a 2-24 mL, Route: l 22:05: IVP, Drug form: INJ, Q3H, Dosing Weight 87.7, kg, PRN as needed for anxiety, Start date: 11/22/13 16:05:00, Duration: 30 day, Stop date: 12/22/13 16:04:00(S anthony as: Ativan) Morphine 2013-0 No 2 mg, 1 Memori a 2-24 mL, Route: l 22:05: IVP, Drug form: INJ, Q2H, Dosing Weight 87.7, kg, PRN Pain, Start date: 11/22/13 16:05:00, Duration: 30 day, Stop date: 12/22/13 16:04:00(S anthony as:MORPhin e Sulfate) Zofran 2013-0 No 4 mg, 2 Memoria 2-24 mL, Route: l 22:05: IV, Drug form: INJ, Q8H, Dosing Weight 87.7, kg, PRN Nausea, Start date: 11/22/13 16:05:00, Duration: 30 day, Stop date: 12/22/13 17:04:00(S anthony as: Zofran) Saline 2013-0 No 5 ml, Memoria Flush 0.9% 2-24 Route: l 21:21: IVP, Drug Form: INJ, Dosing Weight 90.909, kg, PRN, PRN Line Flush, Start date: 11/22/13 15:21:00, Duration: 30 day, Stop date: 12/22/13 16:20:00(S anthony as: BD Posiflush) Nicardipine 2013-0 No 40 mg, 200 Memoria 2-24 mL, Rate: l 21:21: Start at 5 mgTitrate to maintain SBP 110-150 mmHg., Dosing Weight 90.909, kg, Route: IV, Total Volume: 200, Start Date: 11/22/13 15:21:00, Duration: 30 day, Stop date: 12/22/13 15:20:00, Replace Every: 24 hrSame as: Cardene Concentrat ion: (0.2 mg /1 ml ) Magnesium 2013-0 No 30 mL, Memori a Hydroxide 2-24 Route: PO, l 21:21: Drug Form: Momo 00 SUSP, Dosing Weight 90.909, kg, BID, PRN Constipati on, Start date: 11/22/13 15:21:00, Duration: 30 day, Stop date: 12/22/13 15:20:00(S anthony as: Milk of Magnesia, MOM) Labetalol No 20 mg, 4 Tico jessi 2-24 mL, Route: l 21:07: IVP, Drug form: INJ, Q10Min, Dosing Weight 90.909, kg, PRN Other -See Comment, Start date: 11/22/13 15:07:00, Duration: 30 day, Stop date: 12/22/13 16:06:00(S anthony as: Normodyne, Trandate) Push over 2 minutes Give bolus over 2-3 minutes. Hydralazine No 20 mg, 1 Me moria 2-24 mL, Route: l 21:07: IVP, Drug form: INJ, Q4H, Dosing Weight 90.909, kg, PRN Elevated BP, Start date: 11/22/13 15:07:00, Duration: 30 day, Stop date: 12/22/13 15:06:00, SBP>150(Sa me as: Apresoline ) Push over 5 minutes Nicardipine No 40 mg, 200 Memoria 2-24 mL, Rate: l 18:57: Titrate, Dosing Weight 90.909, kg, Route: IV, Total Volume: 200 mL, Start Date: 11/22/13 12:57:00, Duration: 30 day, Stop date: 12/22/13 12:56:00, Replace Every: 24 hrSame as: Cardene Concentrat ion: (0.2 mg /1 ml ) Saline No 5 mL, Memoria Flush 0.9% 2-24 Route: l 18:46: IVP, Drug Form: INJ, Dosing Weight 79.545, kg, PRN, PRN Line Flush, Start date: 11/22/13 12:46:00, Duration: 30 day, Stop date: 12/22/13 13:45:00(S anthony as: BD Posiflush) Benicar 20 Yes Rj 20 mg, 1 M emoria mg oral 2-05 Maia tab, PO, l tablet 15:06: Daily, 30 Luisito n 55 tab, Substituti on Allowed, TAB [place] Yes Rj 1-2 tab, Memori a 7.5/325 2-05 Maia PO, Q4-6H, l oral tablet 15:06: PRN, 20 Her bertrand 43 tab, Pain, Substituti on Allowed, Maintenanc e Motrin No Rj 600 mg, 1 Tico jessi 2-05 Maia tab, l 14:29: Route: PO, Drug form: TAB, ONCE, Dosing Weight 79.545, kg, Priority: STAT, Start date: 11/03/12 8:29:00, Stop date: 11/03/12 8:29:00 clonidine No [place] 0.1 mg, 1 Memoria 2-05 Jackie tab, l 13:48: Route: PO, Drug form: TAB, ONCE, Dosing Weight 79.545, kg, Priority: STAT, Start date: 11/03/12 7:48:00, Stop date: 11/03/12 7:48:00 IDS med No Montez IV, 333.33 Me moria 4-11 Garth ml/hr, l 22:00: Nila ONCE, Start date: 01/08/12 17:00:00, 1,000 ml [place] 5/325 No Mohan 1 tab, Memoria oral tablet 01-07 Ahmed Route: PO, l 21:22: ONCE, Start date: 01/08/12 16:22:00, Stop date: 01/08/12 16:22:00 NS 1,000 mL No Manuel M 1,000 mL, Memoria 01-07 Allen Rate: l 19:56: 1,000 00 ml/hr, Infuse over: 1 hr, Route: IV, Dosing Weight 115.5 kg, Total Volume: 1,000, Start date: 01/08/12 14:56:00, Duration: 30 day, Stop date: 02/07/12 14:55:00 Gabriellayn Yes Mohan 375 mg, Me moria 375 mg oral 4-11 Ahmed PO, BID, l tablet 18:55: PRN, 30 [place] 47 tab, Pain, Substituti on Allowed Vicodin 2011- Yes Mohan 1-2 Memori a 5/500 oral 4-11 Ahmed tablets, l tablet 18:55: PO, Q4-6H, Joanna nn 37 PRN, 30 tab, for Pain, Substituti on Allowed, Maintenanc e Immunizations Ordered Immunization Filled Immunization Date Status Commen ts Source Name Name influenza virus 2018-06-29 Completed [facility] vaccine, live, 00:00:00 Momo trivalent influenza virus 2018-06-22 Completed [facility] vaccine, inactivated 00:00:00 Ngoc elidia hepatitis B adult 2018-05-18 Completed Memoria l vaccine 00:00:00 Momo hepatitis B adult 2018-01-23 Completed Memoria l vaccine 00:00:00 [place] hepatitis B adult 2017-12-22 Completed Memoria l vaccine 00:00:00 [place] hepatitis B adult 2017-11-24 Completed Memoria l vaccine 00:00:00 [place] hepatitis B adult 2017-10-03 Completed Memoria l vaccine 00:00:00 Momo influenza virus 2017-06-09 Completed [facility] vaccine, inactivated 00:00:00 Ngoc elidia hepatitis B adult 2017-06-04 Completed Memoria l vaccine 00:00:00 Momo hepatitis B adult 2017-05-02 Completed Memoria l vaccine 00:00:00 Momo pneumococcal 2017-04-11 Completed [facility] 13-valent vaccine 00:32:00 [facility] pneumococcal 2017-04-11 Completed [facility] 23-valent vaccine 00:00:00 Momo hepatitis B adult 2017-03-29 Completed Memoria l vaccine 00:00:00 Momo Vital Signs Vital Name Observation Time Observation Value Comments Source Systolic blood 2022-12-02 22:30:00 159 mm[Hg] Univer sity of pressure [facility] Diastolic blood 2022-12-02 22:30:00 99 mm[Hg] Unive rsity of pressure [facility] Heart rate 2022-12-02 22:30:00 78 /min [facility] Respiratory rate 2022-12-02 22:30:00 18 /min [facility] Oxygen saturation in 2022-12-02 22:30:00 100 /min [facility] blood by [facility] Pulse oximetry [place] Body temperature 2022-12-02 17:38:[address] [facility] Body height 2022-12-02 17:38:00 170.2 cm [facility] Body weight 2022-12-02 17:38:00 92.987 kg [facility] BMI 2022-12-02 17:38:00 32.11 kg/m2 [facility] Systolic (mm Hg) 2022-12-14 12:49:16 Tico rial Momo Diastolic (mm Hg) 2022-12-14 12:49:16 Mem orial [place] Heart Rate 2022-12-14 12:49:16 [facility] Momo Temperature Oral (F) 2022-12-14 12:49:02 98.3 F [facility] Momo Respitory Rate 2022-12-09 15:09:00 Memori al Momo Respitory Rate 2022-12-09 15:00:00 Memori al [place] Systolic (mm Hg) 2022-12-09 15:00:00 Tico rial Momo Diastolic (mm Hg) 2022-12-09 15:00:00 Mem orial [place] Temperature Oral (F) 2022-12-09 15:00:00 98.5 F [facility] Momo Respitory Rate 2022-12-09 14:45:00 Memori al [place] Systolic (mm Hg) 2022-12-09 14:45:00 Tico rial Momo Diastolic (mm Hg) 2022-12-09 14:45:00 Mem orial Momo Systolic (mm Hg) 2022-12-09 14:30:00 Tico rial Momo Diastolic (mm Hg) 2022-12-09 14:30:00 Mem orial Momo Temperature Oral (F) 2022-12-09 11:00:00 98.3 F [facility] Heart Rate 2022-12-09 04:14:31 [facility] [place] Heart Rate 2022-12-09 04:13:28 [facility] [place] Temperature Oral (F) 2022-12-09 04:13:00 97.9 F [facility] Heart Rate 2022-12-09 02:07:00 [facility] [place] Temperature Oral (F) 2022-12-04 21:47:07 98.1 F [facility] Height 2022-12-03 02:25:00 5 [ft_i] [facility] [place] Weight 2022-12-03 02:25:00 [facility] Momo BMI Calculated 2022-12-03 02:25:00 Memori al [place] Temperature Oral (F) 2019-08-20 19:22:00 98.6 F [facility] Heart Rate 2019-08-20 19:22:00 [facility] Respitory Rate 2019-08-20 19:22:00 Memori al [place] Systolic (mm Hg) 2019-08-20 19:22:00 Tico rial Momo Diastolic (mm Hg) 2019-08-20 19:22:00 Mem orial Momo Temperature Oral (F) 2019-08-20 18:00:00 98.6 F [facility] [place] Heart Rate 2019-08-20 18:00:00 [facility] [place] Respitory Rate 2019-08-20 18:00:00 Memori al [place] Systolic (mm Hg) 2019-08-20 18:00:00 Tico rial [place] Diastolic (mm Hg) 2019-08-20 18:00:00 Mem orial Momo Temperature Oral (F) 2019-08-20 14:01:00 98.2 F [facility] [place] Heart Rate 2019-08-20 14:01:00 [facility] Respitory Rate 2019-08-20 14:01:00 Memori al [place] Systolic (mm Hg) 2019-08-20 14:01:00 Tico rial Momo Diastolic (mm Hg) 2019-08-20 14:01:00 Mem orial [place] Height 2019-08-19 18:35:00 170.18 cm [facility] [place] BMI Calculated 2019-08-19 18:35:00 Memori al [place] Weight 2019-08-19 18:35:00 [facility] Systolic (mm Hg) 2019-01-26 20:26:00 Tico rial [place] Diastolic (mm Hg) 2019-01-26 20:26:00 Mem orial [place] Heart Rate 2019-01-26 20:26:00 [facility] Systolic (mm Hg) 2019-01-21 19:27:00 Tico rial Momo Diastolic (mm Hg) 2019-01-21 19:27:00 Mem orial [place] Heart Rate 2019-01-21 19:27:00 [facility] Heart Rate 2019-01-19 18:16:00 [facility] Systolic (mm Hg) 2019-01-19 18:16:00 Tico rial Momo Diastolic (mm Hg) 2019-01-19 18:16:00 Mem orial [place] Systolic (mm Hg) 2018-12-17 19:33:00 Tico rial Momo Diastolic (mm Hg) 2018-12-17 19:33:00 Mem orial [place] Heart Rate 2018-12-17 19:33:00 [facility] Systolic (mm Hg) 2018-12-15 17:50:00 Tico rial [place] Diastolic (mm Hg) 2018-12-15 17:50:00 Mem orial [place] Heart Rate 2018-12-15 17:50:00 [facility] [place] Height 2018-09-23 23:23:00 170.18 cm [facility] Momo BMI Calculated 2018-09-23 23:23:00 Memori al [place] Weight 2018-09-23 23:23:00 [facility] [place] BMI Calculated 2018-08-25 19:57:00 Memori al [place] Weight 2018-08-25 19:57:00 [facility] [place] Height 2018-08-25 19:57:00 167.64 cm [facility] Systolic (mm Hg) 2018-08-25 19:57:00 Tico rial [place] Diastolic (mm Hg) 2018-08-25 19:57:00 Mem orial [facility] Heart Rate 2018-08-25 19:57:00 [facility] [place] Temperature Oral (F) 2018-08-25 19:57:00 98.1 F [facility] [place] Systolic (mm Hg) 2018-07-30 16:56:00 Tico rial [place] Diastolic (mm Hg) 2018-07-30 16:56:00 Mem orial [facility] Heart Rate 2018-07-30 16:56:00 [facility] [place] Systolic (mm Hg) 2018-07-28 19:50:00 Tico rial Momo Diastolic (mm Hg) 2018-07-28 19:50:00 Mem orial [place] Respitory Rate 2018-07-28 19:50:00 Memori al Mom[facility] Temperature Oral (F) 2018-07-28 19:50:00 98 F [facility] [place] Respitory Rate 2018-07-28 19:12:00 Memori al [place] Systolic (mm Hg) 2018-07-28 19:12:00 Tico rial Momo Diastolic (mm Hg) 2018-07-28 19:12:00 Mem orial [place] Systolic (mm Hg) 2018-07-28 18:58:00 Tico rial Momo Diastolic (mm Hg) 2018-07-28 18:58:00 Mem orial [facility] Respitory Rate 2018-07-28 18:58:00 Mem[facility] al [place] Heart Rate 2018-07-28 18:58:00 [facility] Weight 2018-07-28 17:47:00 [facility] Temperature Oral (F) 2018-07-28 17:47:00 98.7 F [facility] [place] Heart Rate 2018-07-28 17:47:00 [facility] [place] Systolic (mm Hg) 2018-07-28 15:19:00 Tico rial Momo Diastolic (mm Hg) 2018-07-28 15:19:00 Mem orial [facility] Heart Rate 2018-07-28 15:19:00 [facility] [place] Systolic (mm Hg) 2018-07-23 16:28:00 Tico rial Momo Diastolic (mm Hg) 2018-07-23 16:28:00 Mem orial [place] Heart Rate 2018-07-23 16:28:00 [facility] [place] Heart Rate 2018-07-16 16:29:00 [facility] Systolic (mm Hg) 2018-07-16 16:29:00 Tico rial Momo Diastolic (mm Hg) 2018-07-16 16:29:00 Mem orial [facility] Systolic (mm Hg) 2018 17:51:00 Tico rial [place] Diastolic (mm Hg) 2018 17:51:00 Mem orial [place] Heart Rate 2018 17:51:00 [facility] [place] Systolic (mm Hg) 2018-07-07 17:55:00 Tico rial [place] Diastolic (mm Hg) 2018-07-07 17:55:00 Mem orial [place] Heart Rate 2018-07-07 17:55:00 [facility] Heart Rate 2018-06-16 16:31:00 [facility] [place] Systolic (mm Hg) 2018-06-16 16:31:00 Tico rial Momo Diastolic (mm Hg) 2018-06-16 16:31:00 Mem orial [place] Systolic (mm Hg) 2018-06-11 16:04:00 Tico rial Momo Diastolic (mm Hg) 2018-06-11 16:04:00 Mem orial [facility] Heart Rate 2018-06-11 16:04:00 [facility] [place] Heart Rate 2018-06-04 17:34:00 [facility] [place] Systolic (mm Hg) 2018-06-04 17:34:00 Tico rial [place] Diastolic (mm Hg) 2018-06-04 17:34:00 Mem orial [facility] Weight 2018-04-14 14:24:00 [facility] BMI Calculated 2018-04-14 14:24:00 Memori al [place] Height 2018-04-14 14:24:00 167.64 cm [facility] Heart Rate 2018-04-14 14:24:00 [facility] Temperature Oral (F) 2018-04-14 14:24:00 98.3 F [facility] [place] Systolic (mm Hg) 2018-04-14 14:24:00 Tico rial Momo Diastolic (mm Hg) 2018-04-14 14:24:00 Mem orial [facility] BMI Calculated 2018-03-02 13:49:00 [facility] al [place] Weight 2018-03-02 13:49:00 [facility] [place] Height 2018-03-02 13:49:00 177.8 cm [facility] [place] Temperature Oral (F) 2018-03-02 11:50:00 98 F [facility] Systolic (mm Hg) 2018-03-02 11:50:00 Tico rial [place] Diastolic (mm Hg) 2018-03-02 11:50:00 Mem orial [facility] Respitory Rate 2018-03-02 11:50:00 Memori al [place] Height 2018-02-25 19:39:00 167.64 cm [facility] [place] Weight 2018-02-25 19:39:00 [facility] BMI Calculated 2018-02-25 19:39:00 [facility] [place] Systolic (mm Hg) 2018-02-25 19:39:00 Tico rial [place] Diastolic (mm Hg) 2018-02-25 19:39:00 Mem orial [facility] Heart Rate 2018-02-25 19:39:00 [facility] Temperature Oral (F) 2018-02-25 19:39:00 97.7 F [facility] [place] Systolic (mm Hg) 2018-02-24 23:15:00 Tico rial [place] Diastolic (mm Hg) 2018-02-24 23:15:00 Mem o[facility] [place] Systolic (mm Hg) 2018-02-24 23:00:00 Tico rial Momo Diastolic (mm Hg) 2018-02-24 23:00:00 Mem o[facility] [place] Systolic (mm Hg) 2018-02-24 22:30:00 Tico rial Momo Diastolic (mm Hg) 2018-02-24 22:30:00 Mem orial [facility] Respitory Rate 2018-02-24 22:27:00 [facility] al [place] Heart Rate 2018-02-24 22:27:00 [facility] [place] Respitory Rate 2018-02-24 22:00:00 [facility] al [place] Heart Rate 2018-02-24 22:00:00 [facility] [place] Respitory Rate 2018-02-24 21:45:00 [facility] [place] [facility] Rate 2018-02-24 21:45:00 [facility] BMI Calculated 2018-02-24 21:28:00 [facility] [place] Height 2018-02-24 21:28:00 170.18 cm [facility] [place] Weight 2018-02-24 21:28:00 [facility] Temperature Oral (F) 2018-02-24 21:28:00 98.4 F [facility] Heart Rate 2018-01-27 22:41:00 [facility] Temperature Oral (F) 2018-01-27 22:41:00 99 F [facility] [place] Respitory Rate 2018-01-27 22:41:00 [facility] [place] Systolic (mm Hg) 2018-01-27 22:41:00 [facility] [place] Diastolic (mm Hg) 2018-01-27 22:41:00 [facility] Systolic (mm Hg) 2018-01-27 19:47:00 [facility] [place] Diastolic (mm Hg) 2018-01-27 19:47:00 [facility] Heart Rate 2018-01-27 19:47:00 [facility] BMI Calculated 2018-01-27 19:47:00 [facility] [place] Weight 2018-01-27 19:47:00 [facility] [place] Respitory Rate 2018-01-27 19:47:00 [facility] [place] Temperature Oral (F) 2018-01-27 19:47:00 97.7 F [facility] [place] Height 2018-01-27 19:47:00 170.18 cm [facility] [place] Weight 2018-01-27 13:45:00 [facility] [place] BMI Calculated 2018-01-27 13:45:00 [facility] Heart Rate 2018-01-27 13:45:00 [facility] [place] Respitory Rate 2018-01-27 13:45:00 [facility] [place] Height 2018-01-27 13:45:00 168 cm [facility] Systolic (mm Hg) 2018-01-27 13:45:00 [facility] Diastolic (mm Hg) 2018-01-27 13:45:00 [facility] [place] Systolic (mm Hg) 2018-01-01 17:45:00 [facility] [place] Diastolic (mm Hg) 2018-01-01 17:45:00 [facility] [place] Respitory Rate 2018-01-01 17:45:00 [facility] [place] Respitory Rate 2018-01-01 17:30:00 [facility] Systolic (mm Hg) 2018-01-01 17:30:00 [facility] Diastolic (mm Hg) 2018-01-01 17:30:00 [facility] [place] Respitory Rate 2018-01-01 17:15:00 [facility] [place] Systolic (mm Hg) 2018-01-01 17:15:00 [facility] [place] Diastolic (mm Hg) 2018-01-01 17:15:00 [facility] Temperature Oral (F) 2018-01-01 12:03:00 97.8 F [facility] BMI Calculated 2017-12-31 20:21:00 [facility] [place] Weight 2017-12-31 20:21:00 [facility] Height 2017-12-31 20:21:00 170.18 cm [facility] Systolic (mm Hg) 2017-11-13 22:30:00 [facility] Diastolic (mm Hg) 2017-11-13 22:30:00 [facility] Respitory Rate 2017-11-13 22:30:00 [facility] [place] Systolic (mm Hg) 2017-11-13 22:15:00 [facility] [facility] [place] Diastolic (mm Hg) 2017-11-13 22:15:00 [facility] [place] Respitory Rate 2017-11-13 22:15:00 [facility] [place] Respitory Rate 2017-11-13 22:00:00 [facility] [place] Systolic (mm Hg) 2017-11-13 22:00:00 [facility] Diastolic (mm Hg) 2017-11-13 22:00:00 [facility] [place] Temperature Oral (F) 2017-11-13 21:00:00 97.7 F [facility] [place] Temperature Oral (F) 2017-11-13 17:30:00 98.2 F [facility] [place] BMI Calculated 2017-11-13 15:57:00 [facility] [place] Height 2017-11-13 15:57:00 170.18 cm [facility] Weight 2017-11-13 15:57:00 [facility] Systolic (mm Hg) 2017-09-01 15:19:00 [facility] [facility] [place] Diastolic (mm Hg) 2017-09-01 15:19:00 [facility] BMI Calculated 2017-09-01 15:19:00 [facility] [place] Weight 2017-09-01 15:19:00 [facility] Heart Rate 2017-09-01 15:19:00 [facility] [place] Temperature Oral (F) 2017-09-01 15:19:00 97.7 F [facility] [place] Height 2017-09-01 15:19:00 170.18 cm [facility] [place] Systolic (mm Hg) 2017-06-26 18:00:00 [facility] [facility] [place] Diastolic (mm Hg) 2017-06-26 18:00:00 [facility] [place] Respitory Rate 2017-06-26 18:00:00 [facility] [place] Systolic (mm Hg) 2017-06-26 17:45:00 [facility] [facility] [place] Diastolic (mm Hg) 2017-06-26 17:45:00 [facility] [place] Respitory Rate 2017-06-26 17:45:00 [facility] Respitory Rate 2017-06-26 17:30:00 [facility] Systolic (mm Hg) 2017-06-26 17:30:00 [facility] Diastolic (mm Hg) 2017-06-26 17:30:00 [facility] BMI Calculated 2017-06-26 12:26:00 [facility] Weight 2017-06-26 12:26:00 [facility] Height 2017-06-26 12:26:00 170.18 cm [facility] Temperature Oral (F) 2017-06-26 11:45:00 98.3 F [facility] Systolic (mm Hg) 2017-05-15 19:15:00 [facility] Diastolic (mm Hg) 2017-05-15 19:15:00 [facility] [place] Respitory Rate 2017-05-15 19:15:00 [facility] [place] Respitory Rate 2017-05-15 19:00:00 [facility] Systolic (mm Hg) 2017-05-15 19:00:00 [facility] Diastolic (mm Hg) 2017-05-15 19:00:00 [facility] [place] Respitory Rate 2017-05-15 18:45:00 [facility] Systolic (mm Hg) 2017-05-15 18:45:00 [facility] Diastolic (mm Hg) 2017-05-15 18:45:00 [facility] [place] Respitory Rate 2017-05-09 23:08:00 [facility] [place] Temperature Oral (F) 2017-05-09 23:08:00 98.2 F [facility] [place] Weight 2017-05-09 23:08:00 [facility] [place] BMI Calculated 2017-05-09 23:08:00 [facility] Heart Rate 2017-05-09 23:08:00 [facility] Systolic (mm Hg) 2017-05-09 23:08:00 [facility] [facility] [place] Diastolic (mm Hg) 2017-05-09 23:08:00 [facility] Height 2017-05-09 23:08:00 170.18 cm [facility] [place] Weight 2017-05-08 18:44:00 [facility] [place] BMI Calculated 2017-05-08 18:44:00 [facility] [place] Height 2017-05-08 18:44:00 170.18 cm [facility] Systolic (mm Hg) 2017-04-11 00:41:00 [facility] Diastolic (mm Hg) 2017-04-11 00:41:00 [facility] Heart Rate 2017-04-11 00:41:00 [facility] Respitory Rate 2017-04-11 00:41:00 [facility] Temperature Oral (F) 2017-04-11 00:41:00 98.0 F [facility] Temperature Oral (F) 2017-04-10 20:33:00 98.2 F [facility] Heart Rate 2017-04-10 20:33:00 [facility] Systolic (mm Hg) 2017-04-10 20:33:00 [place] Diastolic (mm Hg) 2017-04-10 20:33:00 [facility] Systolic (mm Hg) 2017-04-10 19:33:00 [facility] Diastolic (mm Hg) 2017-04-10 19:33:00 [facility] Heart Rate 2017-04-10 19:33:00 [facility] [place] Respitory Rate 2017-04-10 17:03:00 [facility] Temperature Oral (F) 2017-04-10 17:03:00 97.8 F [facility] [place] Respitory Rate 2017-04-10 08:00:00 [facility] [place] BMI Calculated 2017-04-10 01:28:00 [facility] [place] Height 2017-04-10 01:28:00 170.18 cm [facility] [place] Weight 2017-04-10 01:28:00 [facility] [place] Weight 2017-04-09 22:17:00 [facility] Heart Rate 2017-03-18 16:54:00 [facility] [place] Systolic (mm Hg) 2017-03-18 16:54:00 [facility] [facility] [place] Diastolic (mm Hg) 2017-03-18 16:54:00 [facility] Heart Rate 2017-03-18 16:25:00 [facility] Respitory Rate 2017-03-18 16:25:00 [facility] Systolic (mm Hg) 2017-03-18 16:25:00 [facility] [facility] [place] Diastolic (mm Hg) 2017-03-18 16:25:00 [facility] Temperature Oral (F) 2017-03-18 16:25:00 97.9 F [facility] [place] Temperature Oral (F) 2017-03-18 12:41:00 98.1 F [facility] [place] Heart Rate 2017-03-18 12:41:00 [facility] [place] Respitory Rate 2017-03-18 12:41:00 [facility] Diastolic (mm Hg) 2017-03-18 12:41:00 [facility] [place] Systolic (mm Hg) 2017-03-18 12:41:00 [facility] Temperature Oral (F) 2017-03-18 05:07:00 98.7 F [facility] [place] Respitory Rate 2017-03-17 17:00:00 [facility] Weight 2017-03-11 03:29:00 [facility] [place] BMI Calculated 2017-03-11 03:29:00 [facility] [place] Height 2017-03-11 03:29:00 170.18 cm [facility] [place] Weight 2017-03-10 21:27:00 [facility] Respitory Rate 2013-11-26 23:08:00 [facility] [place] Diastolic (mm Hg) 2013-11-26 21:50:00 [facility] Systolic (mm Hg) 2013-11-26 21:50:00 [facility] Respitory Rate 2013-11-26 21:50:00 [facility] Respitory Rate 2013-11-26 21:02:00 [facility] [place] Systolic (mm Hg) 2013-11-26 20:00:00 [facility] Diastolic (mm Hg) 2013-11-26 20:00:00 [facility] [place] Systolic (mm Hg) 2013-11-26 18:00:00 [facility] Diastolic (mm Hg) 2013-11-26 18:00:00 [facility] [place] Temperature Oral (F) 2013-11-26 18:00:00 98 F [facility] Temperature Oral (F) 2013-11-26 10:30:00 98.7 F [facility] [place] Temperature Oral (F) 2013-11-26 08:00:00 98.5 F [facility] Weight 2013-11-22 21:37:00 [facility] Heart Rate 2013-11-22 20:55:00 [facility] Heart Rate 2013-11-22 20:24:00 [facility] [place] Heart Rate 2013-11-22 20:04:00 [facility] [place] Height 2013-11-22 18:42:00 170.18 cm [facility] Weight 2013-11-22 18:42:00 [facility] BMI Calculated 2013-11-22 18:42:00 [facility] [place] Weight 2012-11-03 13:39:00 [facility] Height 2012-11-03 13:39:00 170.18 cm [facility] [place] Height 2012-01-08 15:12:00 170.18 cm [facility] [place] Weight 2012-01-08 15:12:00 Otto Barr Procedures Procedure Date / Time Performing Clinician Source Performed US DUPLEX VENOUS ARM 2022-12-02 18:57:00 Roberto Pratt [facility] LEFT - BY VASCULAR LAB Medical [facility] COMP. METABOLIC PANEL 2022-12-02 18:34:00 Roberto Pratt [facility] ([id number]) [facility] CBC WITH DIFF 2022-12-02 18:34:00 Roberto Pratt [place] o f [facility] PROTHROMBIN TIME / INR 2022-12-02 18:34:00 Roberto Pratt [facility] 2022-12-02 18:34:00 Roberto Pratt [facility] THRMPL[facility] Colonoscopy 2018-09-24 06:00:00 Otto bertrand Arteriovenous fistula 2017-05-15 05:00:00 Shannon Rivers operation Insertion of tunneled 2016-09-29 00:00:00 Shannon Rivers central venous catheter using fluoroscopic guidance<sup>1</sup> Encounters Start End Encounter Admission Attending Care Care Encounter Source Date/Time Date/Time Type Type Clinicians Facility Department ID 2023-03-26 OD LUISITO [facility] [id number] Fl moria 13:26:27 00 gayle Barr 2022-12-11 Outpatient [facility] [id number] [place] 07:29:56 [id number] [facility] 2022-12-06 Outpatient [facility] [id number] [place] 09:33:25 [id number] [facility] 2022-12-04 Inpatient STEFANY COTA [facility] [id number] [facility] 13:30:55 2022-12-03 Outpatient [facility] [id number] [place] 14:02:55 [id number] [facility] 2022-12-05 2022-12-14 Inpatient LUISITO [facility] [id number] Memoria 16:53:00 17:17:00 Momo 65 l [facility] 2022-12-05 2022-12-14 Outpatient JUANITO [place] [id number] 10:53:00 12:17:00 German 65 Trevor 2022-12-05 2022-12-14 Inpatient U JUANITO [place] MED [id number] 10:53:00 12:17:00 PR[facility]CASSANDRA [facility] 2022-12-11 2022-12-11 Outpatient YAZ, [facility] [id number] [place] 13:30:00 13:30:00 [facility] 2022-12-09 2022-12-09 Outpatient YAZ, [facility] [id number] [place] 14:30:00 14:30:00 [facility] 2022-12-06 2022-12-06 Outpatient DONAL, [facility] [id number] [place] 09:30:00 09:30:00 [facility] 2022-12-05 2022-12-05 Outpatient Salud MHSE MHSE [id number] 10:53:00 10:53:00 En-Szu 65 2022-12-03 2022-12-03 Outpatient DONAL, [facility] [id number] [place] 11:30:00 11:30:00 [facility] 2022-12-02 2022-12-02 [facility] [id number] Univers 11:37:00 16:41:00 ROBERTO humphreys [facility] 2022-12-02 2022-12-02 [facility] [id number] Univers 11:37:00 16:41:00 Roberto VALENTINO 350.1.13.10 i eligio [facility] 4.2.7.2.686 [facility] [id number] [address] 2022-04-19 2022-04-19 [facility] [id number] Univers 09:00:00 09:00:00 [place] humphreys o f [facility] 2022-04-10 2022-04-10 Telephone [facility] [id number] Univers 00:00:00 00:00:00 [place] LANCASTERPEC 350.1.13.10 [place] 4.2.7.2.686 [facility] [id number] [facility] AND [address] [facility] 2022-04-10 2022-04-10 [facility]phone [facility] [id number] [id number] Univers 00:00:00 00:00:00 [place] Bojorquez MULTISPEC 350.1.13.10 ity of IALTY 4.2.7.2.686 [place] [id number] [facility] [address] [facility] 2022-04-08 2022-04-08 Committee Luciano [facility] [id number] Univers 00:00:00 00:00:00 Review Elidia alegre MULTISPEC 350.1.13.10 ity of IALTY 4.2.7.2.686 [facility] [place] [id number] [facility] [address] [facility] 2022-03-27 2022-03-27 Landscape Management Technician Vtc-Lab [facility] 1.2.840.114 [id number] Univers 13:00:00 13:15:00 Visit [place] Chang MULTISPEC 350.1.13 .10 ity of IALTY 4.2.7.2.686 [facility] [place] [id number] [facility] [address] [facility] 2022-03-27 2022-03-27 Outpatient R CHARLENE [facility] [id number] Univers 13:00:00 13:00:00 [place] it[place] o f [facility] 2022-03-27 2022-03-27 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 2.840.114 [id number] Univers 12:00:00 12:00:00 Visit [place] Chang MULTISPEC 350.1.13 .10 ity of IALTY 4.2.7.2.686 [facility] [place] [id number] [address] [facility] 2022-03-27 2022-03-27 Outpatient R ANAI STONE [facility] [id number] Univers 11:00:00 11:58:21 ity of [facility] 2022-03-27 2022-03-27 Apartment House Manager, Transplant Social [facility] 1.2.840.114 [id number] Univers 11:00:00 11:58:21 Management [place] Chang MULTISPEC 350.1 .13.10 ity of IALTY 4.2.7.2.686 [facility] [id number] [facility] [address] DIABETES [facility] 2022-03-27 2022-03-27 Office Anai Stone [facility] 1.2.840.114 [id number] Univers 10:00:00 11:58:04 Visit [place] Chang MULTISPEC 350.1.13 .10 ity of IALTY 4.2.7.2.686 [facility] [id number] [facility] [address] DIABETES [facility] 2022-03-27 2022-03-27 Nurse Renal, Transplant Class [facility] 1. 2.840.114 [id number] [facility] 08:30:00 09:15:00 Visit Charlene, Andrea A MULTISPEC 350.1.13 .10 ity of IALTY 4.2.7.2.686 [facility] [id number] [address] DIABETES [facility] 2019-08-19 2019-08-20 Emergency nullFlavo [facility] [id number] Memoria 18:32:29 19:53:00 r Momo 21 l [place] 2019-08-19 2019-08-20 Outpatient CARMINA CannonSL [place] [id number] 12:32:29 13:53:00 Jeromy Roper 2019-08-19 2019-08-19 Emergency E MHFB MHFB [id number] MHFB 12:32:00 12:32:00 2019-08-11 2019-08-11 Emergency E ELIUD MAY [facility] [id number] [facility] 07:59:00 09:20:00 Medica l Vincent 2019-06-22 2019-07-22 OP nullFlavo Transplant [id number] Memoria 12:20:00 04:59:00 Transplant r Vincent 05 l [facility] Momo [facility] 2019-06-22 2019-07-21 Outpatient De [facility] [id number] 07:20:00 23:59:00 Clara Clarke 2019-06-22 2019-06-22 Outpatient [facility] [id number] [facility] 07:20:00 07:20:00 2019-05-26 2019-05-26 Ambulatory nullFlavo [facility] [id number] Memoria 20:00:00 20:00:00 Pre-Reg r Internal 08 l Annabelle Arthur 2019-05-26 2019-05-26 Outpatient MHIE IE [id number] Memoria 15:00:00 15:00:00 08 gayle Barr 2019-05-26 2019-05-26 Outpatient MHIE MHIE [id number] Memoria 15:00:00 15:00:00 08 gayle Barr 2019-05-26 2019-05-26 [id number] 15:00:00 15:00:00 Romi Tiffanie Olievira 2018-12-29 2019-01-28 Tots nullFlavo TIRR [id number] Memoria 16:57:00 04:59:00 Therapy r [facility] 03 gayle Barr 2018-12-29 2019-01-27 Outpatient Erma TIRR MHTIRR [id number] 11:57:00 23:59:00 Romi Eran Oliveira 2018-11-26 2018-12-26 Tots nullFlavo TIRR [id number] Memoria 16:01:00 04:59:00 Therapy r [facility] 03 gayle Barr 2018-11-26 2018-12-25 Outpatient Erma TIRR MHTIRR [id number] 10:01:00 23:59:00 Romisnow Oliveira 2018-09-24 2018-09-24 Bedded nullFlavo [facility] [id number] Memoria 11:23:00 14:45:00 Outpatient eugenia Barr 20 l [place] nn 2018-09-24 2018-09-24 [place] [id number] 05:23:00 08:45:00 Shun Densonn 20 2018-08-26 2018-08-27 [place] [id number] Memoria 17:30:00 05:59:59 r Internal 07 l Annabelle Gama 2018-08-25 2018-08-27 Phone nullFlavo MG [id number] Memoria 20:42:00 05:59:59 Message r Gastroenter 02 l carl Momo Natan 2018-08-26 2018-08-26 Outpatient [facility] [id number] 11:30:00 23:59:59 07 2018-08-25 2018-08-26 Outpatient MHMG MG [id number] 14:42:00 23:59:59 02 2018-08-26 2018-08-26 Outpatient MHIE MHIE [id number] Memoria 11:30:00 11:30:00 07 gayle Momo 2018-08-26 2018-08-26 Outpatient MHIE MHIE [id number] Memoria 11:30:00 11:30:00 07 gayle Momo 2018-08-25 2018-08-26 Outpatient nullFlavo MHMG [id number] Memoria 20:00:00 05:59:59 r Internal 06 gayle Arthur 2018-08-25 2018-08-25 [id number] 14:00:00 23:59:59 Romi Andrez Oliveira 2018-08-25 2018-08-25 Outpatient MHIE MHIE [id number] Memoria 14:00:00 14:00:00 06 gayle Momo 2018-08-25 2018-08-25 Outpatient MHIE MHIE [id number] Memoria 14:00:00 14:00:00 06 gayle Momo 2018-07-23 2018-08-22 Tots nullFlavo TIRR [id number] Memoria 15:08:00 05:59:00 Therapy r [facility] 02 gayle Momo Barr 2018-07-23 2018-08-21 Outpatient Bollineni, MHTIRR MHTIRR [id number] 10:08:00 23:59:00 Stephanie 02 2018-07-28 2018-07-28 Emergency nullFlavo [facility] [id number] Memoria 17:36:00 19:50:00 r Momo 19 l Isabell Marshall nn 2018-07-28 2018-07-28 Outpatient Carolee, MHSL MHSL [id number] 12:36:00 14:50:00 Valeri Dupont 2018-06-18 2018-07-18 Tots nullFlavo TIRR [id number] Memoria 17:56:00 04:59:00 Therapy r [facility] 01 gayle Barr 2018-06-18 2018-07-17 Outpatient De MHTIRR MHTIRR [id number] 12:56:00 23:59:00 Jp Clarke 2018-05-19 2018-06-18 Tots nullFlavo TIRR [id number] Memoria 13:49:00 04:59:00 Therapy r [facility] 00 gayle Barr Momo 2018-05-19 2018-06-17 Outpatient De MHTIRR MHTIRR [id number] 08:49:00 23:59:00 Kavin Clarke Kalani 2018-04-14 2018-04-15 Outpatient nullFlavo MHMG Family 5 [id number] Memoria 15:00:00 04:59:59 r Medicine 05 gayle Arthur Luisito nico 2018-04-14 2018-04-14 Outpatient Stevenson, MHMG MHMG [id number] 10:00:00 23:59:59 Shira 05 2018-04-14 2018-04-14 Outpatient MHIE MHIE [id number] Memoria 10:00:00 10:00:00 05 gayle Barr 2018-04-14 2018-04-14 Outpatient MHIE MHIE [id number] Memoria 10:00:00 10:00:00 05 gayle GrossmanMomo 2018-02-24 2018-03-26 Tots nullFlavo TIRR [id number] Memoria 13:00:00 04:59:00 Therapy r [facility] 01 gayle Barr 2018-02-24 2018-03-25 Outpatient Haritha, MHTIRR MHTIRR [id number] 08:00:00 23:59:00 Stephanie 01 2018-03-03 2018-03-04 Outpatient E BARFIELD, [facility] TELE [id number] [facility] 15:47:00 [facility]:01[facility] 2018-03-02 2018-03-02 Day nullFlavo [facility] [id number] Memoria 11:21:00 14:40:00 Surgery r Momo 16 l [facility] 2018-03-02 2018-03-02 Outpatient Juan Jose [facility] [id number] 06:21:00 09:40:00 Janak Kovacs 2018-02-25 2018-02-27 Phone nullFlavo MHMG [id number] Memoria 14:08:00 04:59:59 Message r Internal 01 gayle Arthur 2018-02-25 2018-02-26 Outpatient MHMG MHMG [id number] 09:08:00 23:59:59 01 2018-02-25 2018-02-26 [place] [id number] Memoria 19:30:00 04:59:59 [facility] 2018-01-27 2018-02-26 OP nullFlavo [facility] [id number] Memoria 13:44:00 04:59:00 Transplant r Momo 00 l Clinic - Transplant Herm elidia [facility] 2018-02-25 2018-02-25 Outpatient JOHN Stevenson MG [id number] 14:30:00 23:59:59 Shira 04 2018-01-27 2018-02-25 Outpatient De [facility] [id number] 08:44:00 23:59:00 Kavin Clarke 2018-02-25 2018-02-25 Outpatient MHIE MHIE [id number] Memoria 14:30:00 14:30:00 04 [place]le [place] 2018-02-25 2018-02-25 Outpatient MHIE IE [id number] Memoria 14:30:00 14:30:00 04 gayle [place] 2018-02-24 2018-02-24 Emergency nullFlavo [facility] [id number] Memoria 21:16:00 23:51:00 eugenia Barr 17 l [facility] 2018-02-24 2018-02-24 Outpatient CARMINA MorelandSGayle [facility] [id number] 16:16:00 18:51:00 Armond Miller 2018-01-27 2018-01-27 Emergency nullFlavo [facility] [id number] Memoria 19:45:00 22:45:00 eugenia Barr 14 gayle [facility] 2018-01-27 2018-01-27 [facility] [id number] 14:45:00 17:45:00 Malorie 14 2018-01-27 2018-01-27 [facility] [id number] 14:45:00 17:45:00 Malorie 14 2018-01-01 2018-01-01 Day nullFlavo [facility] [id number] Memoria 11:13:00 18:10:00 Surgery eugenia Barr 11 l [facility] 2018-01-01 2018-01-01 Outpatient Juan Jose [facility] [id number] 06:13:00 13:10:00 Janak Jaycob Kovacs 2017-11-13 2017-11-13 Observatio nullFlavo [facility] [id number] Memoria 19:18:00 22:45:00 n eugenia Barr 10 l [facility] 2017-11-13 2017-11-13 Outpatient Juan Jose [facility] [id number] 13:18:00 16:45:00 Janak Mabel Fermín 2017-09-01 2017-09-02 [place] [id number] Memoria 15:15:00 05:59:59 r Internal 03 l Annabelle Arthur 2017-09-01 2017-09-01 Outpatient Stevenson, [facility] [id number] 09:15:00 23:59:59 Shira 03 2017-09-01 2017-09-01 Outpatient MHIE MHIE [id number] Memoria 09:15:00 09:15:00 03 gayle Barr 2017-09-01 2017-09-01 Outpatient MHIE MHIE [id number] Memoria 09:15:00 09:15:00 03 gayle Barr 2017-06-26 2017-06-26 Day nullFlavo [facility] [id number] Memoria 10:30:00 18:20:00 Surgery r Momo 08 l [facility] 2017-06-26 2017-06-26 Outpatient Juan Jose [facility] [id number] 05:30:00 13:20:00 Janak Tiffanie Kovacs 2017-05-15 2017-05-15 Day nullFlavo [facility] [id number] Memoria 11:00:00 19:20:00 Surgery r Momo 06 l [facility] 2017-05-15 2017-05-15 Outpatient Juan Jose [facility] [id number] 06:00:00 14:20:00 Janak Andrez SalasFermín 2017-05-09 2017-05-10 Emergency nullFlavo [facility] [id number] Memoria 23:04:00 00:00:00 eugenia Barr 07 l [place] [facility] 2017-05-09 2017-05-09 Outpatient Eduin Tsai [facility] [id number] 18:04:00 19:00:00 Oli 07 2017-05-07 2017-05-07 Outpatient MHIE MHIE [id number] Memoria 10:30:00 10:30:00 02 gayle Barr 2017-05-07 2017-05-07 Outpatient MHIE MHIE [id number] Memoria 10:30:00 10:30:00 02 gayle Barr 2017-04-25 2017-04-25 Outpatient MHIE MHIE [id number] Memoria 14:45:00 14:45:00 01 gayle Momo 2017-04-25 2017-04-25 Outpatient MHIE MHIE [id number] Memoria 14:45:00 14:45:00 01 gayle Barr 2017-04-09 2017-04-11 Bedded nullFlavo [facility] [id number] Memoria 22:15:00 01:18:00 Outpatient r Momo 05 l [place] 2017-04-09 2017-04-10 Outpatient Chi, MHSL MHSL [id number] 17:15:00 20:18:00 Pancho 05 2017-03-10 2017-03-18 Inpatient nullFlavo [facility] [id number] Memoria 21:21:00 18:26:00 r Momo 04 l [place] 2017-03-10 2017-03-18 Outpatient Haim, MHSL MHSL [id number] 16:21:00 13:26:00 Mauricio 04 2017-03-07 2017-03-07 Outpatient MHIE MHIE [id number] Memoria 10:30:00 10:30:00 00 gayle Barr 2017-03-07 2017-03-07 Outpatient MHIE MHIE [id number] Memoria 10:30:00 10:30:00 00 gayle Barr 2013-11-22 2013-11-27 Inpatient nullFlavo [facility] [id number] Memoria 18:37:00 02:10:00 r Momo [id number] [address] 2013-11-22 2013-11-26 Outpatient Gopathi, 2.16.840. [id number]. [id number] 12:37:00 20:10:00 Judy [id number] 02 Arreola [id number] 2013-11-22 Inpatient nullFlavo [place] [id number] Memoria 13:45:00 13:45:00 r [facility] 02 [facility] 2012-11-03 2012-11-03 Emergency nullFlavo [facility] [id number] Memoria 07:28:00 09:57:00 r [facility] 01 [facility] 2012-01-08 2012-01-08 Emergency nullFlavo [facility] [id number] Memoria 09:38:00 17:44:00 r [facility] 00 [facility] Results Test Description Test Time Test Comments Results Result Comments Source CHEMISTRY 2022-12-14 09:01:00 Test Item Value Reference Range Interpretation Comme nts Glucose Lvl (test code = Glucose Lvl) 86 70-99 [facility]52[facility]08 09:01:00 Test Item Value Reference Range Interpretation Comments BUN (test code = BUN) 24 7-22 [facility]0368-95-87 09:01:00 Test Item Value Reference Range Interpretation Comments Creatinine Lvl (test code = Creatinine 6.44 0.50-1.40 Lvl) [facility] HospitalWwoybvgHXSLSJOYM7968-03-48 09:01:00 Test Item Value Reference Range Interpretation Comments Sodium Lvl (test code = Sodium Lvl) 137 135-145 [facility] [id number] 09:01:00 Test Item Value Reference Range Interpretation Comments Potassium Lvl (test code = Potassium 3.8 3.5-5.1 Lvl) [facility]zi[facility]ESUITYOB3824-80-26 09:01:00 Test Item Value Reference Range Interpretation Comments Chloride Lvl (test code = Chloride Lvl) 104 95-109 [facility]QjlvuhcBRHBQHJJS2668-11-34 09:01:00 Test Item Value Reference Range Interpretation Comments CO2 (test code = CO2) 27 24-32 [facility] HospitalIqeqwujTEVWALAKG3717-89-96 09:01:00 Test Item Value Reference Range Interpretation Comments AGAP (test code = AGAP) 9.8 10.0-20.0 [facility] HospitalLpciedbSSXMHJHTL2945-22-25 09:01:00 Test Item Value Reference Range Interpretation Comments Calcium Lvl (test code = Calcium Lvl) 8.3 8.5-10.5 [facility] HospitalPveopfmJZXHMDGFJ0161-14-26 09:01:00 Test Item Value Reference Range Interpretation Comments B/C Ratio (test code = B/C Ratio) 4 1 6-25 [facility]089[facility]-53 09:01:00 Test Item Value Reference Range Interpretation Comments Total Protein (test code = Total 5.8 6.4-8.4 Protein) [facility] [facility]00 Test Item Value Reference Range Interpretation Comments Albumin Lvl (test code = Albumin Lvl) 2.9 3.5-5.0 [facility]CusgectYEYPAEQLQ8851-42-43 09:01:00 Test Item Value Reference Range Interpretation Comments Globulin (test code = Globulin) 2.9 2.7-4.2 [facility]anoQuhzingYSXTHPJTG0270-03-43 09:01:00 Test Item Value Reference Range Interpretation Comments A/G Ratio (test code = A/G Ratio) 1.0 1 0.7-1.6 [place] [address]-03-18 09:01:00 Test Item Value Reference Range Interpretation Comments ALT (test code = ALT) no gt See_Comment [Auto mated message] The system which nerated this result transmit cruz reference range : <=65. The reference range was not used to interpr et this result as gee l/abnormal. [facility]anoRgsfeilUZNYPWTNP1058-00-02 09:01:00 Test Item Value Reference Range Interpretation Comments AST (test code = AST) 17 See_Comment [Auto mated message] The system which nerated this result transmit cruz reference range : <=37. The reference range was not used to interpr et this result as gee l/abnormal. [facility]anoRykxghoFISIICEMP0975-34-85 09:01:00 Test Item Value Reference Range Interpretation Comments Alk Phos (test code = Alk Phos) 79 39-136 [facility]anoUyanotbQAPNFRXTZ9082-61-26 09:01:00 Test Item Value Reference Range Interpretation Comments Bili Total (test code = Bili Total) 0.6 0.2-1.3 [facility]anoKiweeiuWNIUKHFTL9896-05-08 09:01:00 Test Item Value Reference Range Interpretation Comments eGFR (test code = eGFR) 9 [facility]anoQrlcxucFIDECBRSQS1678-53-25 09:01:00 Test Item Value Reference Range Interpretation Comments WBC (test code = WBC) 6.8 3.7-10.4 [facility]NMPAOWWJ0176-[facility] 09:01:00 Test Item Value Reference Range Interpretation Comments RBC (test code = RBC) 2.72 4.70-6.10 [place] 078713-03-18 09:01:00 Test Item Value Reference Range Interpretation Comments Hgb (test code = Hgb) 8.5 14.0-18.0 [place] [address]-03-18 09:01:00 Test Item Value Reference Range Interpretation Comments Hct (test code = Hct) 25.7 42.0-54.0 [place] 078713-03-18 09:01:00 Test Item Value Reference Range Interpretation Comments MCV (test code = MCV) 94.4 80.0-94.0 [place] 078713-03-18 09:01:00 Test Item Value Reference Range Interpretation Comments MCH (test code = MCH) 31.1 pg 27.0-31.0 [facility]AfasjouAHHEKAMMSZ2346-02-79 09:01:00 Test Item Value Reference Range Interpretation Comments MCHC (test code = MCHC) 32.9 32.0-36.0 [place] 078713-03-18 09:01:00 Test Item Value Reference Range Interpretation Comments RDW (test code = RDW) 17.4 11.5-14.5 [place] 078713-03-18 09:01:00 Test Item Value Reference Range Interpretation Comments Platelet (test code = Platelet) 180 133-450 [facility] CenterKzqlxppUIJPRGBKUY2048-50-83 09:01:00 Test Item Value Reference Range Interpretation Comments MPV (test code = MPV) 7.3 7.4-10.4 [place] 078713-03-18 09:01:00 Test Item Value Reference Range Interpretation Comments Segs (test code = Segs) 63.6 45.0-75.0 [place] [address]-03-18 09:01:00 Test Item Value Reference Range Interpretation Comments Lymphocytes (test code = Lymphocytes) 18.7 20.0-40.0 [place] [address]-03-18 09:01:00 Test Item Value Reference Range Interpretation Comments Monocytes (test code = Monocytes) 10.6 2.0-12.0 [place] [address]-03-18 09:01:00 Test Item Value Reference Range Interpretation Comments Eosinophils (test code = 6.1 See_Comment [A utomated message] The Eosinophils) system which ge nerated this result tra nsmitted reference range : <=4.0. The reference r jillian was not used to int erpret this result as normal/abnormal . [facility] CenterVonerejRAVATDPFZF3970-20-40 09:01:00 Test Item Value Reference Range Interpretation Comments Basophils (test code = 1.0 See_Comment [Aut omated message] The Basophils) system which ge nerated this result tra nsmitted reference range : <=1.0. The reference r jillian was not used to int erpret this result as normal/abnormal . [facility] CenterCpcofedODFMPPOJYV4525-38-00 09:01:00 Test Item Value Reference Range Interpretation Comments Neutrophils # (test code = Neutrophils 4.3 1.5-8.1 #) [facility] CenterPrsmqmwRAAWBDTBHZ9957-27-00 09:01:00 Test Item Value Reference Range Interpretation Comments Lymphocytes # (test code = Lymphocytes 1.3 1.0-5.5 #) [place] [address]-03-18 09:01:00 Test Item Value Reference Range Interpretation Comments Monocytes # (test code 0.7 See_Comment [Aut omated message] The = Monocytes #) system which generated this result tra nsmitted reference range : <=0.8. The reference r jillian was not used to int erpret this result as normal/abnormal . [facility] CenterPbdgoixQVTPBEYBMC6458-39-19 09:01:00 Test Item Value Reference Range Interpretation Comments Eosinophils # (test code 0.4 See_Comment [A utomated message] The = Eosinophils #) system [facility] generated this result tra nsmitted reference range : <=0.5. The reference r jillian was not used to int erpret this result as normal/abnormal . [facility] CenterRjmrfgnUWEDWEHXYH2621-09-93 09:01:00 Test Item Value Reference Range Interpretation Comments Basophils # (test code 0.1 See_Comment [Aut omated message] The = Basophils #) system which generated this result tra nsmitted reference range : <=0.2. The reference r jillian was not used to int erpret this result as normal/abnormal . [facility]2023-03-18 01:43:00 Test Item Value Reference Range Interpretation Comments Glucose POC (test code = Glucose POC) 111 70-[address] [facility]2023-03-18 01:43:00 Test Item Value Reference Range Interpretation Comments Gluc POC Comment 1 (test code Notified RN/MD = Gluc POC Comment 1) [facility] CenterMfzyqnoPDAIUBVXPE4612-21-55 13:41:00 Test Item Value Reference Range Interpretation Comments RBC Morph (test code = Normal (12/13/22 8:41 RBC Morph) AM) [facility] CenterHasoyxuJHERUUWAAW3223-23-87 13:41:00 Test Item Value Reference Range Interpretation Comments Plt Morph (test code = Normal (12/13/22 8:41 Plt Morph) AM) [facility] IUGRTBI2492-42-43 02:46:00 Test Item Value Reference Range Interpretation Comments RBC product (test code Product available = RBC product) 2(12/12/22 9:46 PM) [facility] VMGZWIK3945-77-30 17:51:00 Test Item Value Reference Range Interpretation Comments ABO/Rh (test code = ABO/Rh) O POS [facility] [id number] 17:51:00 Test Item Value Reference Range Interpretation Comments Antibody Scrn (test Negative (12/12/22 code = Antibody Scrn) 12:51 PM) [facility] CenterDthcxbuWEWCIIQRGR2857-22-46 09:13:00 Test Item Value Reference Range Interpretation Comments Macrocyte (test code = 1+ *ABN*(12/12/22 Macrocyte) 4:13 AM) [facility]2023-03-13 09:20:00 Test Item Value Reference Range Interpretation Comments Glucose Lvl (test code = Glucose Lvl) 84 70-99 [facility]2023-03-13 09:20:00 Test Item Value Reference Range Interpretation Comments BUN (test code = BUN) 71 7-22 [facility]2023-03-13 09:20:00 Test Item Value Reference Range Interpretation Comments Creatinine Lvl (test code = Creatinine 10.70 0.50-1.40 Lvl) [facility]2023-03-13 09:20:00 Test Item Value Reference Range Interpretation Comments Sodium Lvl (test code = Sodium Lvl) 133 135-145 [facility]2023-03-13 09:20:00 Test Item Value Reference Range Interpretation Comments Potassium Lvl (test code = Potassium 5.4 3.5-5.1 Lvl) [facility] [employer] [id number] 09:20:00 Test Item Value Reference Range Interpretation Comments Chloride Lvl (test code = Chloride Lvl) 102 95-109 [facility] [employer] [id number] 09:20:00 Test Item Value Reference Range Interpretation Comments CO2 (test code = CO2) 23 24-32 [facility] [employer] [id number] 09:20:00 Test Item Value Reference Range Interpretation Comments Calcium Lvl (test code = Calcium Lvl) 8.2 8.5-10.5 [facility] [employer] [id number] 09:20:00 Test Item Value Reference Range Interpretation Comments AGAP (test code = AGAP) 13.4 10.0-20.0 [facility] [employer] [id number] 09:20:00 Test Item Value Reference Range Interpretation Comments eGFR (test code = eGFR) 5 [facility] [employer] [id number] 09:29:00 Test Item Value Reference Range Interpretation Comments Antibody Scrn (test Negative (12/08/22 4:29 code = Antibody Scrn) AM) [facility] [employer] [id number] 09:29:00 Test Item Value Reference Range Interpretation Comments ABO/Rh (test code = ABO/Rh) O POS [facility] [employer] [id number] 09:29:00 Test Item Value Reference Range Interpretation Comments Glucose Lvl (test code = Glucose Lvl) 101 70-99 [facility] [employer] [id number] 09:29:00 Test Item Value Reference Range Interpretation Comments BUN (test code = BUN) 62 7-22 [facility] [employer] [id number] 09:29:00 Test Item Value Reference Range Interpretation Comments Creatinine Lvl (test code = Creatinine 9.67 0.50-1.40 Lvl) [employer] [id number] 09:29:00 Test Item Value Reference Range Interpretation Comments Sodium Lvl (test code = Sodium Lvl) 133 135-145 [facility] [employer] [id number] 09:29:00 Test Item Value Reference Range Interpretation Comments Potassium Lvl (test code = Potassium 5.3 3.5-5.1 Lvl) [facility] [facility] [id number] 09:29:00 Test Item Value Reference Range Interpretation Comments Chloride Lvl (test code = Chloride Lvl) 103 95-109 [place] 171163-03-12 09:29:00 Test Item Value Reference Range Interpretation Comments CO2 (test code = CO2) 24 24-32 [place] 171163-03-12 09:29:00 Test Item Value Reference Range Interpretation Comments AGAP (test code = AGAP) 11.3 10.0-20.0 [place] 171163-03-12 09:29:00 Test Item Value Reference Range Interpretation Comments Calcium Lvl (test code = Calcium Lvl) 8.2 8.5-10.5 [place] 171163-03-12 09:29:00 Test Item Value Reference Range Interpretation Comments eGFR (test code = eGFR) 6 [place] 078713-03-12 09:29:00 Test Item Value Reference Range Interpretation Comments WBC (test code = WBC) 9.0 3.7-10.4 [place] [address]-03-12 09:29:00 Test Item Value Reference Range Interpretation Comments RBC (test code = RBC) 3.27 4.70-6.10 [place] [address]-03-12 09:29:00 Test Item Value Reference Range Interpretation Comments Hgb (test code = Hgb) 11.1 14.0-18.0 [place] [address]-03-12 09:29:00 Test Item Value Reference Range Interpretation Comments Hct (test code = Hct) 33.7 42.0-54.0 [place] [address]-03-12 09:29:00 Test Item Value Reference Range Interpretation Comments MCV (test code = MCV) 102.8 80.0-94.0 [place] [address]-03-12 09:29:00 Test Item Value Reference Range Interpretation Comments MCH (test code = MCH) 33.8 pg 27.0-31.0 [place] [address]-03-12 09:29:00 Test Item Value Reference Range Interpretation Comments MCHC (test code = MCHC) 32.9 32.0-36.0 [place] [address]-03-12 09:29:00 Test Item Value Reference Range Interpretation Comments RDW (test code = RDW) 15.0 11.5-14.5 [place] [address]-03-12 09:29:00 Test Item Value Reference Range Interpretation Comments Platelet (test code = Platelet) 188 133-450 [place] [address]-03-12 09:29:00 Test Item Value Reference Range Interpretation Comments MPV (test code = MPV) 8.6 7.4-10.4 [place] [address]-03-12 09:29:00 Test Item Value Reference Range Interpretation Comments PT (test code = PT) 14.5 s 12.0-14.7 [place] [address]-03-12 09:29:00 Test Item Value Reference Range Interpretation Comments INR (test code = INR) 1.13 1 0.85-1.17 [place] [address]-03-12 09:29:00 Test Item Value Reference Range Interpretation Comments PTT (test code = PTT) 32.1 s 22.9-35.8 [place] [address]-03-12 09:29:00 Test Item Value Reference Range Interpretation Comments Segs (test code = Segs) 70.6 45.0-75.0 [place] [address]-03-12 09:29:00 Test Item Value Reference Range Interpretation Comments Lymphocytes (test code = Lymphocytes) 18.1 20.0-40.0 [place] [address]-03-12 09:29:00 Test Item Value Reference Range Interpretation Comments Monocytes (test code = Monocytes) 10.7 2.0-12.0 [place] [address]-03-12 09:29:00 Test Item Value Reference Range Interpretation Comments Eosinophils (test code = 0.2 See_Comment [A utomated message] The Eosinophils) system which ge nerated this result tra nsmitted reference range : <=4.0. The reference r jillian was not used to int erpret this result as normal/abnormal . [place] [address]-03-12 09:29:00 Test Item Value Reference Range Interpretation Comments Basophils (test code = 0.4 See_Comment [Aut omated message] The Basophils) system which ge nerated this result tra nsmitted reference range : <=1.0. The reference r jillian was not used to int erpret this result as normal/abnormal . [place] [address]-03-12 09:29:00 Test Item Value Reference Range Interpretation Comments Neutrophils # (test code = Neutrophils 6.4 1.5-8.1 #) [place] 078713-03-12 09:29:00 Test Item Value Reference Range Interpretation Comments Lymphocytes # (test code = Lymphocytes 1.6 1.0-5.5 #) [place] [address]-03-12 09:29:00 Test Item Value Reference Range Interpretation Comments Monocytes # (test code 1.0 See_Comment [Aut omated message] The = Monocytes #) system which generated this result tra nsmitted reference range : <=0.8. The reference r jillian was not used to int erpret this result as normal/abnormal . [place] [address]-03-12 09:29:00 Test Item Value Reference Range Interpretation Comments Macrocyte (test code = 1+ *ABN*(12/08/22 Macrocyte) 4:29 AM) [place] [address]-03-12 09:29:00 Test Item Value Reference Range Interpretation Comments PT (test code = PT) 14.5 s 12.0-14.7 [place] [address]-03-12 09:29:00 Test Item Value Reference Range Interpretation Comments INR (test code = INR) 1.13 1 0.85-1.17 [place] [address]-03-12 09:29:00 Test Item Value Reference Range Interpretation Comments PTT (test code = PTT) 32.1 s 22.9-35.8 [place] 171163-03-11 11:20:00 Test Item Value Reference Range Interpretation Comments Glucose Lvl (test code = Glucose Lvl) 125 70-99 [place] 171163-03-11 11:20:00 Test Item Value Reference Range Interpretation Comments BUN (test code = BUN) 49 7-22 [place] 171163-03-11 11:20:00 Test Item Value Reference Range Interpretation Comments Creatinine Lvl (test code = Creatinine 8.68 0.50-1.40 Lvl) [place] 171163-03-11 11:20:00 Test Item Value Reference Range Interpretation Comments Sodium Lvl (test code = Sodium Lvl) 131 135-145 [place] 171163-03-11 11:20:00 Test Item Value Reference Range Interpretation Comments Potassium Lvl (test code = Potassium 5.4 3.5-5.1 Lvl) [place] 171163-03-11 11:20:00 Test Item Value Reference Range Interpretation Comments Chloride Lvl (test code = Chloride Lvl) 102 95-109 [place] 171163-03-11 11:20:00 Test Item Value Reference Range Interpretation Comments CO2 (test code = CO2) 22 24-32 [place] 171163-03-11 11:20:00 Test Item Value Reference Range Interpretation Comments AGAP (test code = AGAP) 12.4 10.0-20.0 [place] [address]-03-11 11:20:00 Test Item Value Reference Range Interpretation Comments Calcium Lvl (test code = Calcium Lvl) 8.8 8.5-10.5 [place] 171163-03-11 11:20:00 Test Item Value Reference Range Interpretation Comments eGFR (test code = eGFR) 7 [place] 078713-03-11 11:20:00 Test Item Value Reference Range Interpretation Comments WBC (test code = WBC) 13.5 3.7-10.4 [place] [address]-03-11 11:20:00 Test Item Value Reference Range Interpretation Comments RBC (test code = RBC) 3.62 4.70-6.10 [place] 078713-03-11 11:20:00 Test Item Value Reference Range Interpretation Comments Hgb (test code = Hgb) 12.1 14.0-18.0 [place] [address]-03-11 11:20:00 Test Item Value Reference Range Interpretation Comments Hct (test code = Hct) 37.2 42.0-54.0 [place] [address]-03-11 11:20:00 Test Item Value Reference Range Interpretation Comments MCV (test code = MCV) 102.8 80.0-94.0 [place] [address]-03-11 11:20:00 Test Item Value Reference Range Interpretation Comments MCH (test code = MCH) 33.5 pg 27.0-31.0 [place] [address]-03-11 11:20:00 Test Item Value Reference Range Interpretation Comments MCHC (test code = MCHC) 32.6 32.0-36.0 [place] [address]-03-11 11:20:00 Test Item Value Reference Range Interpretation Comments RDW (test code = RDW) 15.1 11.5-14.5 [facility] CenterXutdisjCXPGBZDOFK5772-88-04 11:20:00 Test Item Value Reference Range Interpretation Comments Platelet (test code = Platelet) 195 133-450 [place] 078713-03-11 11:20:00 Test Item Value Reference Range Interpretation Comments MPV (test code = MPV) 8.4 7.4-10.4 [facility] CenterIpvflssOCPOKVNBKP4124-43-56 11:20:00 Test Item Value Reference Range Interpretation Comments Segs (test code = Segs) 84.0 45.0-75.0 [place] 078713-03-11 11:20:00 Test Item Value Reference Range Interpretation Comments Lymphocytes (test code = Lymphocytes) 6.4 20.0-40.0 [place] 078713-03-11 11:20:00 Test Item Value Reference Range Interpretation Comments Monocytes (test code = Monocytes) 9.5 2.0-12.0 [facility] CenterMmuuagbYAFVQFQAFP7410-51-30 11:20:00 Test Item Value Reference Range Interpretation Comments Basophils (test code = 0.1 See_Comment [Aut omated message] The Basophils) system which ge nerated this result tra nsmitted reference range : <=1.0. The reference r jillian was not used to int erpret this result as normal/abnormal . [facility] CenterRzxmgbgJEITEMYBZL2106-06-81 11:20:00 Test Item Value Reference Range Interpretation Comments Neutrophils # (test code = Neutrophils 11.4 1.5-8.1 #) [facility] CenterGkodfswLZFLBXHMGN8481-22-88 11:20:00 Test Item Value Reference Range Interpretation Comments Lymphocytes # (test code = Lymphocytes 0.9 1.0-5.5 #) [place] [address]-03-11 11:20:00 Test Item Value Reference Range Interpretation Comments Monocytes # (test code 1.3 See_Comment [Aut omated message] The = Monocytes #) system which generated this result tra nsmitted reference range : <=0.8. The reference r jillian was not used to int erpret this result as normal/abnormal . [facility] CenterWyxnstmUYSICTOCAC5778-59-48 11:20:00 Test Item Value Reference Range Interpretation Comments Macrocyte (test code = 1+ *ABN*(12/07/22 Macrocyte) 5:20 AM) [facility]2023-03-10 15:43:00 Test Item Value Reference Range Interpretation Comments Gluc POC Comment 2 (test code = Cleaned Meter Gluc POC Comment 2) [facility] CenterFvqlglnUKGBWVHRTB7218-64-12 14:37:00 Test Item Value Reference Range Interpretation Comments WBC (test code = WBC) 8.5 3.7-10.4 [facility] CenterAfzhfywORVMCOVWHN8470-14-45 14:37:00 Test Item Value Reference Range Interpretation Comments RBC (test code = RBC) 3.56 4.70-6.10 [facility] CenterWmmrgsgWKAZDPLDHK8281-88-15 14:37:00 Test Item Value Reference Range Interpretation Comments Hgb (test code = Hgb) 12.1 14.0-18.0 [facility] CenterAidtebzIYQOPFJRNS0069-99-02 14:37:00 Test Item Value Reference Range Interpretation Comments Hct (test code = Hct) 37.2 42.0-54.0 [facility] CenterTokjphqTPXCKQYBNC0091-70-92 14:37:00 Test Item Value Reference Range Interpretation Comments MCV (test code = MCV) 104.6 80.0-94.0 [facility] CenterZvjqejbMWQMKXIIKA6773-33-65 14:37:00 Test Item Value Reference Range Interpretation Comments MCH (test code = MCH) 33.9 pg 27.0-31.0 [facility] CenterVmtkdtjXMJTLSXIFB6511-14-06 14:37:00 Test Item Value Reference Range Interpretation Comments MCHC (test code = MCHC) 32.4 32.0-36.0 [facility] CenterIrwyubhVFAPNSZOIP4849-98-51 14:37:00 Test Item Value Reference Range Interpretation Comments RDW (test code = RDW) 15.1 11.5-14.5 [facility] CenterAzeiwmgZFTMIUQMZW0456-49-82 14:37:00 Test Item Value Reference Range Interpretation Comments Platelet (test code = Platelet) 189 133-450 [facility] CenterBhjlayqVTRMNTAPQX9743-72-22 14:37:00 Test Item Value Reference Range Interpretation Comments MPV (test code = MPV) 7.9 7.4-10.4 [facility]ZZ[facility]XOI1290[facility]69[facility] 13:44:17 Test Item Value Reference Range Interpretation Comments RADRPT (test code = PROCEDURE INFORMATION: RADRPT) Exam: XR Chest Exam date and time: 12/06/2022 7:04 AM Age: 57 years old Clinical indication: /line placement TECHNIQUE: Imaging protocol: Radiologic exam of the chest. Views: 1 view. COMPARISON: CHEST 1VIEW DX 12/03/2022 7:11 AM FINDINGS: Lungs: Normal lung volumes. No consolidation. Pleural spaces: Unremarkable. No pleural effusion. No pneumothorax. Heart/Mediastinum: The cardiac silhouette is upper limits of normal in size. Minimal vascular congestion. A right IJ Tessio catheter has been placed with tips in the region the distal SVC. Bones/joints: Unremarkable. IMPRESSION: 1. Borderline cardiomegaly with minimal vascular congestion. 2. Right IJ Tessio catheter placement. Matty Cote MD On 12/06/2022 07:43:05; [id number] [place] 767733-03-09 18:34:00 Test Item Value Reference Range Interpretation Comments Coronavirus (COVID-19) Not Detected (12/05/22 CHUCKIE (test code = 12:34 PM) Coronavirus (COVID-19) CHUCKIE) [place] 767733-03-09 18:34:00 Test Item Value Reference Range Interpretation Comments Coronavirus (COVID-19) Not Detected (12/05/22 CHUCKIE (test code = 12:34 PM) Coronavirus (COVID-19) CHUCKIE) [place] 078713-03-08 23:51:00 Test Item Value Reference Range Interpretation Comments PT (test code = PT) 14.3 s 12.0-14.7 [place] 078713-03-08 23:51:00 Test Item Value Reference Range Interpretation Comments INR (test code = INR) 1.11 1 0.85-1.17 [place] [address]-03-08 23:51:00 Test Item Value Reference Range Interpretation Comments PTT (test code = PTT) 32.3 s 22.9-35.8 [place] 078713-03-08 23:51:00 Test Item Value Reference Range Interpretation Comments Segs (test code = Segs) 74.5 45.0-75.0 [place] 078713-03-08 23:51:00 Test Item Value Reference Range Interpretation Comments Lymphocytes (test code = Lymphocytes) 15.6 20.0-40.0 [place] 078713-03-08 23:51:00 Test Item Value Reference Range Interpretation Comments Monocytes (test code = Monocytes) 6.9 2.0-12.0 [place] [address]-03-08 23:51:00 Test Item Value Reference Range Interpretation Comments Eosinophils (test code = 2.3 See_Comment [A utomated message] The Eosinophils) system which ge nerated this result tra nsmitted reference range : <=4.0. The reference r jillian was not used to int erpret this result as normal/abnormal . [place] [address]-03-08 23:51:00 Test Item Value Reference Range Interpretation Comments Basophils (test code = 0.7 See_Comment [Aut omated message] The Basophils) system which ge nerated this result tra nsmitted reference range : <=1.0. The reference r jillian was not used to int erpret this result as normal/abnormal . [place] 078713-03-08 23:51:00 Test Item Value Reference Range Interpretation Comments Neutrophils # (test code = Neutrophils 6.1 1.5-8.1 #) [place] [address]-03-08 23:51:00 Test Item Value Reference Range Interpretation Comments Lymphocytes # (test code = Lymphocytes 1.3 1.0-5.5 #) [place] [address]-03-08 23:51:00 Test Item Value Reference Range Interpretation Comments Monocytes # (test code 0.6 See_Comment [Aut omated message] The = Monocytes #) system which generated this result tra nsmitted reference range : <=0.8. The reference r jillian was not used to int erpret this result as normal/abnormal . [place] [address]-03-08 23:51:00 Test Item Value Reference Range Interpretation Comments Eosinophils # (test code 0.2 See_Comment [A utomated message] The = Eosinophils #) system whic h generated this result tra nsmitted reference range : <=0.5. The reference r jillian was not used to int erpret this result as normal/abnormal . [place] [address]-03-08 23:51:00 Test Item Value Reference Range Interpretation Comments Basophils # (test code 0.1 See_Comment [Aut omated message] The = Basophils #) system which generated this result tra nsmitted reference range : <=0.2. The reference r jillian was not used to int erpret this result as normal/abnormal . [facility]WkwlmhwIDSBAGSNWL5027-88-67 23:51:00 Test Item Value Reference Range Interpretation Comments Macrocyte (test code = 1+ *ABN*(12/04/22 5:51 Macrocyte) PM) [facility] HospitalZwjnuakCEOWPXSMIJ4969-45-04 15:58:00 Test Item Value Reference Range Interpretation Comments Hep Bs Ag (test code Negative *NA*(12/04/22 = Hep Bs Ag) 9:58 AM) [facility]OorbvfrRVGVHGNDHH6797-96-[facility] 15:58:00 Test Item Value Reference Range Interpretation Comments Hep Bs Ag (test code Negative *NA*(12/04/22 = Hep Bs Ag) 9:58 AM) [facility]anoCalend[facility] HRLSNYP0981-36-58 15:42:00 Test Item Value Reference Range Interpretation Comments ABO/Rh (test code = ABO/Rh) O POS [facility]anoInterValve B[facility] WONRRVV9831-64-23 15:42:00 Test Item Value Reference Range Interpretation Comments Antibody Scrn (test Negative (12/03/22 9:42 code = Antibody Scrn) AM) [facility] HospitalZqwpyyyIZNHFZ7604-47-77 15:21:12 Test Item Value Reference Range Interpretation Comments RADRPT (test code = PROCEDURE INFORMATION: RADRPT) Exam: US Duplex Hemodialysis Access Exam date and time: 12/03/2022 7:54 AM Age: 57 years old Clinical indication: /av graft dysfunction TECHNIQUE: Imaging protocol: US Duplex hemodialysis access with izaguirre scale, color Doppler, and spectral waveform analysis. Vascular access, inflow and outflow were evaluated. Duplex exam was performed to evaluate for vascular conditions. COMPARISON: No relevant prior studies available. 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 A stent is seen within the graft. There is a moderate amount of thrombus material within the graft. No elevated velocities within the graft. 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 A stent is seen within the graft. There is a moderate amount of thrombus material within the graft. No elevated velocities within the graft. No thrombosis identified to the visualized left cephalic vein outflow.Valentin Evans MD On 12/03/2022 09:19:45; [id number] [facility]anoLkovvsuOLHMJO0084-71-04 14:03:57 Test Item Value Reference Range Interpretation Comments RADRPT (test code PROCEDURE INFORMATION: = RADRPT) Exam: XR Chest Exam date and time: 12/03/2022 7:11 AM Age: 57 years old Clinical indication: Coughing/preop TECHNIQUE: Imaging protocol: Radiologic exam of the chest. Views: 1 view. COMPARISON: CHEST 1VIEW DX 04/09/2017 5:38 PM FINDINGS: Lungs: No acute airspace consolidation. Pleural spaces: No pleural effusion. No pneumothorax. Heart/Mediastinum: Heart is at the upper limit of normal for size. Vasculature: Atherosclerotic calcifications. Vascular stent in the left chest. Bones/joints: No acute fracture. IMPRESSION: No acute cardiopulmonary process. Nigel Tsai MD On 12/03/2022 08:03:26; [id number] [facility]2023-03-07 13:03:00 Test Item Value Reference Range Interpretation Comments Total Protein (test code = Total 6.7 6.4-8.4 Protein) [facility]2023-03-07 13:03:00 Test Item Value Reference Range Interpretation Comments Albumin Lvl (test code = Albumin Lvl) 3.0 3.5-5.0 [facility]2023-03-07 13:03:00 Test Item Value Reference Range Interpretation Comments ALT (test code = ALT) 10 See_Comment [Auto mated message] The system which [employer] nerated this result transmit cruz reference range : <=65. The reference range was not used to interpr et this result as gee l/abnormal. [facility] [id number] 13:03:00 Test Item Value Reference Range Interpretation Comments AST (test code = AST) 5 See_Comment [Auto mated message] The system which [employer] nerated this result transmit cruz reference range : <=37. The reference range was not used to interpr et this result as gee l/abnormal. [facility] [id number] 13:03:00 Test Item Value Reference Range Interpretation Comments Alk Phos (test code = Alk Phos) 77 39-136 [place] 171163-03-07 13:03:00 Test Item Value Reference Range Interpretation Comments Bili Total (test code = Bili Total) 0.4 0.2-1.3 [place] 171163-03-07 13:03:00 Test Item Value Reference Range Interpretation Comments B/C Ratio (test code = B/C Ratio) 4 1 6-25 [place] [address]-03-07 13:03:00 Test Item Value Reference Range Interpretation Comments Globulin (test code = Globulin) 3.7 2.7-4.2 [place] [address]-03-07 13:03:00 Test Item Value Reference Range Interpretation Comments A/G Ratio (test code = A/G Ratio) 0.8 1 0.7-1.6 [place] [address]-03-07 13:03:00 Test Item Value Reference Range Interpretation Comments PT (test code = PT) 15.0 s 12.0-14.7 [place] [address]-03-07 13:03:00 Test Item Value Reference Range Interpretation Comments INR (test code = INR) 1.18 1 0.85-1.17 [place] [address]-03-07 13:03:00 Test Item Value Reference Range Interpretation Comments PTT (test code = PTT) 31.8 s 22.9-35.8 [place] [address]-03-07 13:03:00 Test Item Value Reference Range Interpretation Comments Eosinophils (test code = 2.4 See_Comment [A utomated message] The Eosinophils) system which ge nerated this result tra nsmitted reference range : <=4.0. The reference r jillian was not used to int erpret this result as normal/abnormal . [place] [address]-03-07 13:03:00 Test Item Value Reference Range Interpretation Comments Eosinophils # (test code 0.2 See_Comment [A utomated message] The = Eosinophils #) system whic h generated this result tra nsmitted reference range : <=0.5. The reference r jillian was not used to int erpret this result as normal/abnormal . [place] [address]-03-07 13:03:00 Test Item Value Reference Range Interpretation Comments Basophils # (test code 0.1 See_Comment [Aut omated message] The = Basophils #) system which generated this result tra nsmitted reference range : <=0.2. The reference r jillian was not used to int erpret this result as normal/abnormal . [facility] METABOLIC PANEL (10047)2022-12-02 19:34:37 Test Item Value Reference Range Interpretation Comments NA (test code = 136 mmol/L 135-145 1342224581) K (test code = 4.6 mmol/L 3.5-5.0 3993189316) CL (test code = 101 mmol/L 98-108 5463571453) CO2 TOTAL (test code = 25 mmol/L 23-31 9989848665) AGAP (test code = 10 2-16 0582067294) BUN (test code = 33 mg/dL 7-23 H 4757890531) GLUCOSE (test code = 83 mg/dL 70-110 5877421081) CREATININE (test code = 8.36 mg/dL 0.60-1.25 H 1110833513) TOTAL BILI (test code = 0.6 mg/dL 0.1-1.9 1249524887) CALCIUM (test code = 8.2 mg/dL 8.6-10.6 L 0725990202) T PROTEIN (test code = 7.7 g/dL 6.3-8.2 9810496969) ALBUMIN (test code = 4.3 g/dL 3.5-5.0 7615191530) ALK PHOS (test code = 80 U/L 34-122 3978289636) ALTv (test code = 12 U/L 5-50 2-6) AST(SGOT) (test code = 16 U/L 13-40 1330713584) eGFR (test code = 6.6 mL/min/1.73m2 5225004571) FILI (test code = FILI) Association of Glomerular Filtration Rate (GFR) and Staging of Kidney Disease* + --+ --+ ------+| GFR (mL/min/1.73 m2) ?| With Kidney Damage ?| ?Without Kidney Damage+ --------+ --------+ +| ?>90 ?| ?Stage one ?| ? Normal ?+ ---+ ---+ -------+| ?60-89 ?| ?Stage two ?| ? Decreased GFR ? + --+ --+ ------+| ?30-59 ?| ?Stage three ?| ? Stage three ? + --+ --+ ------+| ?15-29 ?| ?Stage four ? | ? Stage four ?+ ---+ ---+ -------+| ?<15 (or dialysis) ? ?| ?Stage five ? | ? Stage five ?+ ---+ ---+ -------+ *Each stage assumes the associated GFR level has been in effect for at least three months. ?Stages 1 to 5, with or without kidney disease, indicate chronic kidney disease. Notes: Determination of stages one and two (with eGFR >59mL/min/1.73 m2) requires estimation of kidney damage for at least three months as defined by structural or functional abnormalities of the kidney, manifested by either:Pathological abnormalities or Markers of kidney damage (including abnormalities in the composition of the blood or urine or abnormalities in imaging tests). Lab Interpretation Abnormal (test code = 00329-3) [facility] THRMPLAS [id number] 19:16:11 Test Item Value Reference Range Interpretation Comments APTT Patient (test 28 See_Comment [Automat ed code = 3173-2) message] The system which generated this result transmitted reference range : 23 - 38 Seconds . The reference range was not used to interpr et this result as normal/abnormal . FILI (test code = FILI) The [facility] patient population mean normal value for aPTT is 30 seconds. Lab Interpretation Normal (test code = 54347-7) [facility] CenterPROTHROMBIN TIME / [id number] 19:14:13 Test Item Value Reference Range Interpretation Comments PROTIME PATIENT (test 13.3 See_Comment [Auto mated message] code = 5964-2) The system wh ich generated this result transmitted ref erence range: 12.0 - 1 4.7 Seconds. The re ference range was not u sed to interpret this result as normal/abnor mal. INR (test code = 6301-6) 1.1 Nor mal INR <1.1; Warfarin Therap eutic range 2.0 to 3. 0 or 2.5 to 3.5, dep ending upon the indica tions. Lab Interpretation (test Normal code = 17417-5) [facility] WITH [id number] 19:07:14 Test Item Value Reference Range Interpretation Comments WBC (test code = 7.95 See_Comment [Automated 6690-2) message] The sy stem which generated this result transmitted reference range : 4.20 - 10.70 10*3/?L. The reference range was not used to interpret this result as normal/abnormal . RBC (test code = 3.78 See_Comment L [Automated 789-8) message] The sy stem which generated this result transmitted reference range : 4.26 - 5.52 10*6/?L. The reference range was not used to interpret this result as normal/abnormal . HGB (test code = 12.6 g/dL 12.2-16.4 718-7) HCT (test code = 38.1 % 38.4-49.3 L 4544-3) MCV (test code = 100.8 fL 81.7-95.6 H 787-2) MCH (test code = 33.3 pg 26.1-32.7 H 785-6) MCHC (test code = 33.1 g/dL 31.2-35.0 786-4) RDW-SD (test code = 50.5 fL 38.5-51.6 93826-3) RDW-CV (test code = 13.7 % 12.1-15.4 788-0) PLT (test code = 218 See_Comment [Automated 777-3) message] The sy stem which generated this result transmitted reference range : 150 - 328 10*3/ ?L. The reference r jillian was not used to interpret this result as normal/abnormal . MPV (test code = 10.1 fL 9.8-13.0 72289-0) NRBC/100 WBC (test 0.0 See_Comment [Automat ed code = 5055331842) message] The system which generated this result transmitted reference range : 0.0 - 10.0 /100 WBCs. The refer ence range was not u sed to interpret th is result as normal/abnormal . NRBC x10^3 (test code See_Comment [Auto mated = 3579000932) message] The s ystem which generated this result transmitted reference range : 10*3/?L. The reference range was not used to interpret this result as normal/abnormal . GRAN MAT (NEUT) % 69.1 % (test code = 770-8) IMM GRAN % (test code 0.40 % = 1529362591) LYMPH % (test code = 20.0 % 736-9) MONO % (test code = 7.8 % 5905-5) EOS % (test code = 1.9 % 713-8) BASO % (test code = 0.8 % 706-2) GRAN MAT x10^3(ANC) 5.50 10*3/uL 1.99-6.95 (test code = 7774961252) IMM GRAN x10^3 (test 0.03 10*3/uL 0.00-0.06 code = 5879438004) LYMPH x10^3 (test code 1.59 10*3/uL 1.09-3.23 = 731-0) MONO x10^3 (test code 0.62 10*3/uL 0.36-1.02 = 742-7) EOS x10^3 (test code = 0.15 10*3/uL 0.06-0.53 711-2) BASO x10^3 (test code 0.06 10*3/uL 0.01-0.09 = 704-7) Lab Interpretation Abnormal (test code = 58128-7) [facility] [id number] 19:17:00 Test Item Value Reference Range Interpretation Comments Glucose Lvl (test code = Glucose Lvl) 87 70-99 [facility]2019-11-21 19:17:00 Test Item Value Reference Range Interpretation Comments BUN (test code = BUN) 46 7-22 [facility]2019-11-21 19:17:00 Test Item Value Reference Range Interpretation Comments Creatinine Lvl (test code = Creatinine 11.10 0.50-1.40 Lvl) [facility]2019-11-21 19:17:00 Test Item Value Reference Range Interpretation Comments Sodium Lvl (test code = Sodium Lvl) 137 135-145 [facility]2019-11-21 19:17:00 Test Item Value Reference Range Interpretation Comments Potassium Lvl (test code = Potassium 3.8 3.5-5.1 Lvl) [facility]2019-11-21 19:17:00 Test Item Value Reference Range Interpretation Comments Chloride Lvl (test code = Chloride Lvl) 100 95-109 [facility]2019-11-21 19:17:00 Test Item Value Reference Range Interpretation Comments CO2 (test code = CO2) 27 24-32 [facility]2019-11-21 19:17:00 Test Item Value Reference Range Interpretation Comments Calcium Lvl (test code = Calcium Lvl) 8.9 8.5-10.5 [facility]2019-11-21 19:17:00 Test Item Value Reference Range Interpretation Comments Total Protein (test code = Total 8.4 6.4-8.4 Protein) [facility]2019-11-21 19:17:00 Test Item Value Reference Range Interpretation Comments Albumin Lvl (test code = Albumin Lvl) 3.7 3.5-5.0 [facility]2019-11-21 19:17:00 Test Item Value Reference Range Interpretation Comments ALT (test code = ALT) 15 See_Comment [Auto mated message] The system which ge nerated this result transmit cruz reference range : <=65. The reference range was not used to interpr et this result as gee l/abnormal. [facility]2019-11-21 19:17:00 Test Item Value Reference Range Interpretation Comments AST (test code = AST) 11 See_Comment [Auto mated message] The system which ge nerated this result transmit cruz reference range : <=37. The reference range was not used to interpr et this result as gee l/abnormal. [facility]2019-11-21 19:17:00 Test Item Value Reference Range Interpretation Comments Alk Phos (test code = Alk Phos) 80 39-136 [facility]2019-11-21 19:17:00 Test Item Value Reference Range Interpretation Comments Bili Total (test code = Bili Total) 0.4 0.2-1.3 [facility]2019-11-21 19:17:00 Test Item Value Reference Range Interpretation Comments eGFR (test code = eGFR) 5 [facility]2019-11-21 19:17:00 Test Item Value Reference Range Interpretation Comments AGAP (test code = AGAP) 13.8 10.0-20.0 [facility]2019-11-21 19:17:00 Test Item Value Reference Range Interpretation Comments B/C Ratio (test code = B/C Ratio) 4 1 6-25 [facility]2019-11-21 19:17:00 Test Item Value Reference Range Interpretation Comments Globulin (test code = Globulin) 4.7 2.7-4.2 [facility]2019-11-21 19:17:00 Test Item Value Reference Range Interpretation Comments A/G Ratio (test code = A/G Ratio) 0.8 1 0.7-1.6 [facility]NnzrwaoXFMGJWWVJY7685-65-35 19:17:00 Test Item Value Reference Range Interpretation Comments WBC (test code = WBC) 7.9 3.7-10.4 [facility] CenterZywpqlhSHSZDNWYUB0539-55-84 19:17:00 Test Item Value Reference Range Interpretation Comments RBC (test code = RBC) 3.90 4.70-6.10 [facility] CenterCrwvysiYCKVOOSVXH2594-33-48 19:17:00 Test Item Value Reference Range Interpretation Comments Hgb (test code = Hgb) 13.3 14.0-18.0 [facility] CenterQbyyjusGMBZKOGGUZ6690-46-00 19:17:00 Test Item Value Reference Range Interpretation Comments Hct (test code = Hct) 39.0 42.0-54.0 [facility] CenterRsobqdjQTKWLGGEQM0240-67-13 19:17:00 Test Item Value Reference Range Interpretation Comments MCV (test code = MCV) 99.9 80.0-94.0 [facility] CenterObarnpwZLIFELJYWC3057-97-15 19:17:00 Test Item Value Reference Range Interpretation Comments MCH (test code = MCH) 34.2 pg 27.0-31.0 [facility] CenterUghrkdmKGMCCZABRU4515-73-27 19:17:00 Test Item Value Reference Range Interpretation Comments MCHC (test code = MCHC) 34.2 32.0-36.0 [facility] CenterZlchfqqPDHVRHGGWY3547-79-18 19:17:00 Test Item Value Reference Range Interpretation Comments RDW (test code = RDW) 14.1 11.5-14.5 [facility] CenterUeyvbvsIUWULSELQZ1319-96-31 19:17:00 Test Item Value Reference Range Interpretation Comments Platelet (test code = Platelet) 251 133-450 [facility] CenterMmafqgmMLHUUBGPYR5452-88-16 19:17:00 Test Item Value Reference Range Interpretation Comments MPV (test code = MPV) 8.8 7.4-10.4 [facility] CenterXmvyinlJYAOVQXEEP3616-60-92 19:17:00 Test Item Value Reference Range Interpretation Comments Segs (test code = Segs) 69.6 45.0-75.0 [facility] CenterUlpictiSDCCBNYMSY6684-55-43 19:17:00 Test Item Value Reference Range Interpretation Comments Lymphocytes (test code = Lymphocytes) 21.8 20.0-40.0 [facility] CenterBgxhcmkBBIXXCHXDH2242-28-72 19:17:00 Test Item Value Reference Range Interpretation Comments Monocytes (test code = Monocytes) 6.8 2.0-12.0 [facility] CenterUfmpqmlWLHIXMQRAL9428-27-03 19:17:00 Test Item Value Reference Range Interpretation Comments Eosinophils (test code = 1.2 See_Comment [A utomated message] The Eosinophils) system which ge nerated this result tra nsmitted reference range : <=4.0. The reference r jillian was not used to int erpret this result as normal/abnormal . [facility] CenterJxouukbAIDZWCIPEQ8859-93-02 19:17:00 Test Item Value Reference Range Interpretation Comments Basophils (test code = 0.6 See_Comment [Aut omated message] The Basophils) system which ge nerated this result tra nsmitted reference range : <=1.0. The reference r jillian was not used to int erpret this result as normal/abnormal . [facility] CenterZzlpiftVPXBIXKGUN3153-37-93 19:17:00 Test Item Value Reference Range Interpretation Comments Neutrophils # (test code = Neutrophils 5.5 1.5-8.1 #) [facility] CenterVhltacgNSBUELACBF7824-22-91 19:17:00 Test Item Value Reference Range Interpretation Comments Lymphocytes # (test code = Lymphocytes 1.7 1.0-5.5 #) [facility] CenterUdpqfdoEQWDSCZEUI1273-81-17 19:17:00 Test Item Value Reference Range Interpretation Comments Monocytes # (test code 0.5 See_Comment [Aut omated message] The = Monocytes #) system which generated this result tra nsmitted reference range : <=0.8. The reference r jillian was not used to int erpret this result as normal/abnormal . [facility] CenterEjoyldxIESXORFANO8010-13-46 19:17:00 Test Item Value Reference Range Interpretation Comments Eosinophils # (test code 0.1 See_Comment [A utomated message] The = Eosinophils #) system whic h generated this result tra nsmitted reference range : <=0.5. The reference r jillian was not used to int erpret this result as normal/abnormal . [facility]anoJcrynetCBYBZKLWKI7574-51-55 19:17:00 Test Item Value Reference Range Interpretation Comments Acetaminoph Lvl (test code (08/19/19 1:17 PM) 10-20 = Acetaminoph Lvl) [facility] HospitalLzuqrioHXKKBLOCLQ4720-27-70 19:17:00 Test Item Value Reference Range Interpretation Comments Ethanol Lvl (test code = Ethanol Lvl) no gt [facility] HospitalDtsaicjYUMYUMPAHH3345-54-28 19:17:00 Test Item Value Reference Range Interpretation Comments Etoh (%) (test code = Etoh (%)) no gt [facility] HospitalYorkyudPZGBDEDWKN1083-47-12 19:17:00 Test Item Value Reference Range Interpretation Comments Salicylate Lvl (test no gt See_Comment [Autom ated message] The code = Salicylate Lvl) syste m which generated this result tra nsmitted reference range : <=30.0. The reference r jillian was not used to int erpret this result as normal/abnormal . [facility] HospitalBRAIN NATRIURETIC NDHDTXC9453-80-95 08:55:00 Test Item Value Reference Range Interpretation Comments proBNP (test code = PBNP) 750 pg/mL 0-125 H COMPREHENSIVE METABOLIC [id number] 08:55:00 Test Item Value Reference Range Interpretation [...] (test code = 31A) 15 IU/L <=78 HDSBOQFJO6206-10-36 08:55:00 Test Item Value Reference Range Interpretation Comments MAGNESIUM (test code = 48A) 2.6 mg/dL 1.8-2.4 H PHOSPHORUS (P04)2019-08-11 08:55:00 Test Item Value Reference Range Interpretation Comments PHOSPHORUS (test code = 43D) 7.8 mg/dL 2.7-4.6 H TROPONIN [id number] 08:50:00 Test Item Value Reference Range Interpretation Comments TROPONIN I (test code = A84) <0.015 ng/mL 0.000-0.045 PRO TIME AND [id number] 08:43:00 Test Item Value Reference Range Interpretation [...] Order Code is ANTI-XA CT HEAD W/O [id number] 08:36:37CT brain without contrastLocation code: [id number] HISTORY: Dizziness COMPARISON: 03/03/18TECHNIQUE:Routine unenhanced axial imaging [...] Comments WBC (test code = WBC) 8.7 10\\S\\3/uL 4.5-11.0 RBC (test code = RBC) 4.12 10\\S\\6/uL 4.20-5.60 L HGB (test code = HBG) 13.6 g/dL 14.0-18.0 L HCT (test code = HCT) 40.2 % 35.0-46.0 MCV (test code = MCV) 97.6 fL 80.0-94.0 H MCH (test code = MCH) 33.0 pg 27.0-31.0 H MCHC (test code = MCHC) 33.8 g/dL 32.0-36.0 RDW (test code = RDW) 13.8 % 11.5-14.5 PLT (test code = PLT) 273 10\\S\\3/uL 130-400 MPV (test code = MPV) 10.0 fL 9.4-12.4 NEUTROP # (test code = NE#) 6.0 10\\S\\3/uL 2.0-8.0 LYMPH # (test code = LY#) 1.9 10\\S\\3/uL 1.2-4.0 MONOCYTE # (test code = MO#) 0.7 10\\S\\3/uL 0.0-1.1 EOSINOPH # (test code = EO#) 0.1 10\\S\\3/uL 0.0-0.7 BASOPHIL # (test code = BA#) 0.1 10\\S\\3/uL 0.0-0.3 IG # (test code = IG#) 0.05 10\\S\\3/uL 0.00-0.06 NRBC # (test code = NRBC#) 0.00 10\\S\\3/uL 0.00-0.01 NEUTROPH % (test code = NE%) [...] = RBCMOR) NORMAL XR CHEST 1 VIEW [id number] 08:28:57Portable AP chest, 1 viewLocation Code: [id number] HISTORY: DizzinessCOMPARISON: 03/03/18COMMENT: The lungs are clear and well inflated. The costophrenic angles are sharp. Thecardiomediastinal silhouette is unremarkable. The bones are intact.IMPRESSION: Stable chest with no acute nfyyhqkzrfpCELAONLFFLPB5871-08-81 13:08:00 Test Item Value Reference Range Interpretation Comments AGAP (test code = AGAP) 19.3 10.0-20.0 [facility] ServicesAanumhsMKJNAIKVSUOS9996-55-53 13:08:00 Test Item Value Reference Range Interpretation Comments eGFR (test code = eGFR) 7 [facility] ServicesZxzuhtdMIGSFIXKHWFF7733-58-21 13:08:00 Test Item Value Reference Range Interpretation Comments Calcium Lvl (test code = Calcium Lvl) 8.4 8.5-10.5 [facility] ServicesDapcnocMIPEXIMOFYDA9095-32-70 13:08:00 Test Item Value Reference Range Interpretation Comments CO2 (test code = CO2) 24 24-32 [facility] ServicesSxrdapyGAOMITJHDSZQ0423-13-74 13:08:00 Test Item Value Reference Range Interpretation Comments Chloride Lvl (test code = Chloride Lvl) 97 95-109 [facility] ServicesVddcguiCTVDRLEVJBKI0606-67-22 13:08:00 Test Item Value Reference Range Interpretation Comments Potassium Lvl (test code = Potassium 5.3 3.5-5.1 Lvl) [facility] ServicesMucvjhyWKVEFKTABEPY4707-99-92 13:08:00 Test Item Value Reference Range Interpretation Comments BUN (test code = BUN) 39 7-22 [facility] ServicesNcrlxfuMYPEJPUYGCYX5499-25-13 13:08:00 Test Item Value Reference Range Interpretation Comments Creatinine Lvl (test code = Creatinine 7.58 0.50-1.40 Lvl) [facility] ServicesMaiocstUEABAWVCHLYW7094-43-90 13:08:00 Test Item Value Reference Range Interpretation Comments Sodium Lvl (test code = Sodium Lvl) 135 135-145 [facility] ServicesLicsdxqBAKSVNWUZDFC0120-07-15 13:08:00 Test Item Value Reference Range Interpretation Comments Glucose Lvl (test code = Glucose Lvl) 87 70-99 [facility] CenterMynuwxlZSZZFILZZV5124-96-71 13:08:00 Test Item Value Reference Range Interpretation Comments RDW (test code = RDW) 16.5 11.5-14.5 [facility]KsusvkzZAQYAAQXWD2485-98-61 13:08:00 Test Item Value Reference Range Interpretation Comments MCHC (test code = MCHC) 33.7 32.0-36.0 [facility] CenterAxnzucaIUMUXTWTBE3859-32-87 13:08:00 Test Item Value Reference Range Interpretation Comments MCH (test code = MCH) 33.7 pg 27.0-31.0 [facility] CenterMrnvujvGWUSWNPDOL6529-77-32 13:08:00 Test Item Value Reference Range Interpretation Comments MCV (test code = MCV) 100.0 80.0-94.0 [facility] CenterWuplamoXWBUQXGTNQ5143-61-96 13:08:00 Test Item Value Reference Range Interpretation Comments Hct (test code = Hct) 39.7 42.0-54.0 [facility] CenterMhqzvmlDTOHKTKZPN4249-39-07 13:08:00 Test Item Value Reference Range Interpretation Comments Hgb (test code = Hgb) 13.4 14.0-18.0 [facility] CenterFphzypbVSKBRKHWZY8132-33-61 13:08:00 Test Item Value Reference Range Interpretation Comments RBC (test code = RBC) 3.97 4.70-6.10 [facility]HiohjhzUJGWXNWWKD0656-74-34 13:08:00 Test Item Value Reference Range Interpretation Comments WBC (test code = WBC) 8.8 3.7-10.4 [facility] CenterMjposezXAZZIKUDRK0809-96-31 13:08:00 Test Item Value Reference Range Interpretation Comments MPV (test code = MPV) 7.7 7.4-10.4 [facility] CenterRfogjwuDZGRAZIEHE2015-51-15 13:08:00 Test Item Value Reference Range Interpretation Comments Platelet (test code = Platelet) 324 133-450 [facility] GRXFEEK4874-30-27 18:27:00 Test Item Value Reference Range Interpretation Comments Troponin-I (test code no gt See_Comment [Auto mated message] The = Troponin-I) system which g enerated this result transmit cruz reference range : <=0.40. The reference r jillian was not used to interpr et this result as gee l/abnormal. [facility] ServicesRzmeotqLUVAQNOPWTJB1289-52-78 18:27:00 Test Item Value Reference Range Interpretation Comments AGAP (test code = AGAP) 17.2 10.0-20.0 [facility] ServicesKvnegqwPPNGRNIWUAGM9510-82-73 18:27:00 Test Item Value Reference Range Interpretation Comments eGFR (test code = eGFR) 6 [facility] ServicesZrinidzZDLBYPOZCNCS1319-93-27 18:27:00 Test Item Value Reference Range Interpretation Comments Creatinine Lvl (test code = Creatinine 8.49 0.50-1.40 Lvl) [facility] ServicesPrfejswWVPQPLKRZWFM5545-05-35 18:27:00 Test Item Value Reference Range Interpretation Comments Sodium Lvl (test code = Sodium Lvl) 137 135-145 [facility] ServicesFlsuqjiCCYASPLTIFVY6774-97-62 18:27:00 Test Item Value Reference Range Interpretation Comments Potassium Lvl (test code = Potassium 4.2 3.5-5.1 Lvl) [facility] ServicesUflhaazMJDUXPQYJCWB5014-08-16 18:27:00 Test Item Value Reference Range Interpretation Comments BUN (test code = BUN) 32 7-22 [facility] ServicesDjdjcwcHLHRGBCSXEHW2752-84-37 18:27:00 Test Item Value Reference Range Interpretation Comments Glucose Lvl (test code = Glucose Lvl) 75 70-99 [facility] ServicesMthccwuOQWBQIGKIPWY4315-88-67 18:27:00 Test Item Value Reference Range Interpretation Comments Calcium Lvl (test code = Calcium Lvl) 7.9 8.5-10.5 [facility] ServicesKqdfgfbBBVPAQBIHRJM3167-72-09 18:27:00 Test Item Value Reference Range Interpretation Comments CO2 (test code = CO2) 14 24-32 [facility] ServicesBumceaeWYQKYVWQBZSA3875-02-70 18:27:00 Test Item Value Reference Range Interpretation Comments Chloride Lvl (test code = Chloride Lvl) 110 95-109 [facility] CenterGzbmawbXGVUAAVKYC0786-02-98 18:27:00 Test Item Value Reference Range Interpretation Comments Hgb (test code = Hgb) 13.8 14.0-18.0 [facility] CenterQtvabdjBKRIDFJINZ4622-87-82 18:27:00 Test Item Value Reference Range Interpretation Comments Hct (test code = Hct) 40.9 42.0-54.0 [facility] CenterJsncpmcOBIVPKTEJW6710-05-25 18:27:00 Test Item Value Reference Range Interpretation Comments RBC (test code = RBC) 4.29 4.70-6.10 [facility] CenterMweisfeBMVHMRZLIR1598-49-28 18:27:00 Test Item Value Reference Range Interpretation Comments MCV (test code = MCV) 95.4 80.0-94.0 [facility] CenterZyhhokbXMJPKQFWCH2200-32-71 18:27:00 Test Item Value Reference Range Interpretation Comments MCH (test code = MCH) 32.1 pg 27.0-31.0 [facility] CenterKrtrvbjJLWXQRFSPG2015-73-67 18:27:00 Test Item Value Reference Range Interpretation Comments WBC (test code = WBC) 12.2 3.7-10.4 [facility] CenterLozmsgyATBOCTCEPY2960-14-06 18:27:00 Test Item Value Reference Range Interpretation Comments MPV (test code = MPV) 8.8 7.4-10.4 [facility] CenterWmfljtfACNCAFOPYH5342-05-20 18:27:00 Test Item Value Reference Range Interpretation Comments RDW (test code = RDW) 14.5 11.5-14.5 [facility] CenterGhonifwSOOCNALWXL2138-96-36 18:27:00 Test Item Value Reference Range Interpretation Comments Platelet (test code = Platelet) 196 133-450 [facility] CenterYphxgjxJPCFOTJJEW2120-28-02 18:27:00 Test Item Value Reference Range Interpretation Comments MCHC (test code = MCHC) 33.6 32.0-36.0 [facility] CenterXlcbalnGLORJAWZVU7707-41-83 18:27:00 Test Item Value Reference Range Interpretation Comments Lymphocytes # (test code = Lymphocytes 1.6 1.0-5.5 #) [facility] CenterWuqgtbkNSCZNPAZPP8969-07-04 18:27:00 Test Item Value Reference Range Interpretation Comments Neutrophils # (test code = Neutrophils 9.6 1.5-8.1 #) [facility] CenterOfvukkmIZTKCDCAIB7811-99-30 18:27:00 Test Item Value Reference Range Interpretation Comments Basophils # (test code 0.1 See_Comment [Aut omated message] The = Basophils #) system which generated this result tra nsmitted reference range : <=0.2. The reference r jillian was not used to int erpret this result as normal/abnormal . [facility] CenterWmzmvuwRDLCLGHLUU6691-07-08 18:27:00 Test Item Value Reference Range Interpretation Comments Eosinophils # (test code 0.1 See_Comment [A utomated message] The = Eosinophils #) system wh h generated this result tra nsmitted reference range : <=0.5. The reference r jillian was not used to int erpret this result as normal/abnormal . [facility] CenterPaotcocCISEGFZOPD1687-24-93 18:27:00 Test Item Value Reference Range Interpretation Comments Monocytes # (test code 0.9 See_Comment [Aut omated message] The = Monocytes #) system which generated this result tra nsmitted reference range : <=0.8. The reference r jillian was not used to int erpret this result as normal/abnormal . [facility] CenterPdxpktrAUWVJHLCNE1641-48-43 18:27:00 Test Item Value Reference Range Interpretation Comments Basophils (test code = 0.5 See_Comment [Aut omated message] The Basophils) system which ge nerated this result tra nsmitted reference range : <=1.0. The reference r jillian was not used to int erpret this result as normal/abnormal . [facility] CenterRuhbewhUAFEZHCTYI7430-22-41 18:27:00 Test Item Value Reference Range Interpretation Comments Eosinophils (test code = 1.1 See_Comment [A utomated message] The Eosinophils) system which ge nerated this result tra nsmitted reference range : <=4.0. The reference r jillian was not used to int erpret this result as normal/abnormal . [facility] CenterAaocjzlTCWZHDHIGX4228-81-54 18:27:00 Test Item Value Reference Range Interpretation Comments Monocytes (test code = Monocytes) 7.2 2.0-12.0 [facility] CenterRreozmgRQNCSRPZIX1471-51-91 18:27:00 Test Item Value Reference Range Interpretation Comments Lymphocytes (test code = Lymphocytes) 12.8 20.0-40.0 [facility] CenterQmqhkggERASLNFEMR9329-60-60 18:27:00 Test Item Value Reference Range Interpretation Comments Segs (test code = Segs) 78.4 45.0-75.0 [facility] WITH [id number] 06:31:00 Test Item Value Reference Range Interpretation [...] code = USPERM) /HPF NONE BASIC METABOLIC [id number] 04:20:00 Test Item Value Reference Range Interpretation [...] = 09D) 7.8 mg/dL 8.3-9.5 L CARDIAC MKXXDMP6864-79-71 04:14:00 Test Item Value Reference Range Interpretation Comments TROPONIN I (test code = A84) <0.015 ng/mL 0.000-0.045 CKMB (test code = A49) <1.0 ng/mL <=3.6 CPK (test code = 32A) 44 IU/L 39-308 CBC (INCLUDES AUTOMATED DIFFERENTIAL)2018-03-04 04:04:00 Test Item Value Reference Range Interpretation Comments WBC (test code = WBC) 9.6 10\\S\\3/uL 4.5-11.0 RBC (test code = RBC) 3.70 10\\S\\6/uL 4.20-5.60 L HGB (test code = HBG) 11.8 g/dL 14.0-18.0 L HCT (test code = HCT) 37.5 % 35.0-46.0 MCV (test code = MCV) 101.4 fL 80.0-94.0 H MCH (test code = MCH) 31.9 pg 27.0-31.0 H MCHC (test code = MCHC) 31.5 g/dL 32.0-36.0 L RDW (test code = RDW) 13.0 % 11.5-14.5 PLT (test code = PLT) 213 10\\S\\3/uL 130-400 MPV (test code = MPV) 10.2 fL 9.4-12.4 NEUTROP # (test code = NE#) 7.4 10\\S\\3/uL 2.0-8.0 LYMPH # (test code = LY#) 1.1 10\\S\\3/uL 1.2-4.0 L MONOCYTE # (test code = MO#) 0.9 10\\S\\3/uL 0.0-1.1 EOSINOPH # (test code = EO#) 0.2 10\\S\\3/uL 0.0-0.7 BASOPHIL # (test code = BA#) 0.1 10\\S\\3/uL 0.0-0.3 IG # (test code = IG#) 0.02 10\\S\\3/uL 0.00-0.06 NRBC # (test code = NRBC#) 0.00 10\\S\\3/uL 0.00-0.01 NEUTROPH % (test code = NE%) [...] MORPH (test code = RBCMOR) NORMAL CARDIAC [id number] 21:34:00 Test Item Value Reference Range Interpretation Comments TROPONIN I (test code = A84) <0.015 ng/mL 0.000-0.045 CKMB (test code = A49) 1.3 ng/mL <=3.6 CPK (test code = 32A) 50 IU/L 39-308 U/S CAROTID COLOR DOPPLER [id number] 21:13:04Examination: Bilateral carotid Doppler ultrasoundLocation code: [id number]: NoneTechnique:Clinicalhistory is remarkable for dizziness, giddiness. Real-time [...] present, no hemodynamicallysignificant stenosis identified.CT HEAD W/O [id number] 14:56:12CT Brain without contrast.Location code:[id number] HISTORY: [id number]: Chest painComparison: NoneTechnique: Routine unenhanced CT brain [...] acuteintracranial abnormality. Old right thalamic infarct.AMYLASE AND [id number] 14:42:00 Test Item Value Reference Range Interpretation Comments AMYLASE (test code = 10A) 68 U/L 28-100 LIPASE (test code = 60A) 130 IU/L 73-393 COMPREHENSIVE METABOLIC [id number] 14:42:00 Test Item Value Reference Range Interpretation [...] 31A) 23 IU/L <=78 PRO TIME AND [id number] 14:41:00 Test Item Value Reference Range Interpretation [...] Code is ANTI-XA XR CHEST 1 VIEW [id number] 14:38:47EXAMINATION: XR CHEST 1 VIEW PORTABLE.LOCATION: D4.HISTORY: Chest pain, dizziness.COMPARISON: None.FI NDINGS:Examination is limited due to portable technique, patient body habitus and lowlung volumes.Cardiac silhouette/Mediastinal contour: Prominence of cardiac silhouette. Lungs: No focal consolidation. No large pleural effusion. Pulmonary vascularcongestion.Osseous Structures: Mild degenerative changes of thoracic spine.IMPRESSION: Limited study, pulmonary vascular congestion.DRUGS OF [id number] 14:36:00 Test Item Value Reference Range Interpretation [...] Comments WBC (test code = WBC) 9.4 10\\S\\3/uL 4.5-11.0 RBC (test code = RBC) 4.40 10\\S\\6/uL 4.20-5.60 HGB (test code = HBG) 14.4 g/dL 14.0-18.0 HCT (test code = HCT) 42.7 % 35.0-46.0 MCV (test code = MCV) 97.0 fL 80.0-94.0 H MCH (test code = MCH) 32.7 pg 27.0-31.0 H MCHC (test code = MCHC) 33.7 g/dL 32.0-36.0 RDW (test code = RDW) 13.2 % 11.5-14.5 PLT (test code = PLT) 262 10\\S\\3/uL 130-400 MPV (test code = MPV) 10.9 fL 9.4-12.4 NEUTROP # (test code = NE#) 6.8 10\\S\\3/uL 2.0-8.0 LYMPH # (test code = LY#) 1.6 10\\S\\3/uL 1.2-4.0 MONOCYTE # (test code = MO#) 0.7 10\\S\\3/uL 0.0-1.1 EOSINOPH # (test code = EO#) 0.2 10\\S\\3/uL 0.0-0.7 BASOPHIL # (test code = BA#) 0.1 10\\S\\3/uL 0.0-0.3 IG # (test code = IG#) 0.04 10\\S\\3/uL 0.00-0.06 NRBC # (test code = NRBC#) 0.00 10\\S\\3/uL 0.00-0.01 NEUTROPH % (test code = NE%) [...] RBC MORPH (test code = RBCMOR) NORMAL REFERENCE LAB [id number] 19:22:00 Test Item Value Reference Range Interpretation Comments Test Name (test code = HLA TYPING RESULTS Test Name) [facility]2018-04-05 16:20:00 Test Item Value Reference Range Interpretation Comments eGFR (test code = eGFR) 12 [facility]2018-04-05 16:20:00 Test Item Value Reference Range Interpretation Comments POC Hematocrit (test code = POC 30.0 42.0-54.0 Hematocrit) [facility]2018-04-05 16:20:00 Test Item Value Reference Range Interpretation Comments POC Creatinine (test code = POC 5.0 0.5-1.4 Creatinine) [facility]2018-04-05 16:20:00 Test Item Value Reference Range Interpretation Comments POC Hemoglobin (test code = POC 10.2 14.0-18.0 Hemoglobin) [facility]2018-04-05 16:20:00 Test Item Value Reference Range Interpretation Comments POC Carbon Dioxide (test code = POC 24 24-32 Carbon Dioxide) [facility]2018-04-05 16:20:00 Test Item Value Reference Range Interpretation Comments POC BUN (test code = POC BUN) 22 7-22 [facility]2018-04-05 16:20:00 Test Item Value Reference Range Interpretation Comments POC Glucose (test code = POC Glucose) 96 70-99 [facility]2018-04-05 16:20:00 Test Item Value Reference Range Interpretation Comments POC Ion Ca (test code = POC Ion Ca) 1.06 1.05-1.25 [facility]2018-04-05 16:20:00 Test Item Value Reference Range Interpretation Comments POC AGAP (test code = POC AGAP) 16.0 10.0-20.0 [facility]2018-04-05 16:20:00 Test Item Value Reference Range Interpretation Comments POC Potassium (test code = POC 4.2 3.5-5.1 Potassium) [facility]2018-04-05 16:20:00 Test Item Value Reference Range Interpretation Comments POC Chloride (test code = POC Chloride) 103 95-109 [facility]2018-04-05 16:20:00 Test Item Value Reference Range Interpretation Comments POC Sodium (test code = POC Sodium) 137 135-145 [facility]2018-04-05 11:56:00 Test Item Value Reference Range Interpretation Comments eGFR (test code = eGFR) 12 [facility]2018-04-05 11:56:00 Test Item Value Reference Range Interpretation Comments POC Creatinine (test code = POC 5.0 0.5-1.4 Creatinine) [facility]2018-04-05 11:56:00 Test Item Value Reference Range Interpretation Comments POC Glucose (test code = POC Glucose) 109 70-99 [facility]2018-04-05 11:56:00 Test Item Value Reference Range Interpretation Comments POC BUN (test code = POC BUN) 22 7-22 [facility]2018-04-05 11:56:00 Test Item Value Reference Range Interpretation Comments POC Ion Ca (test code = POC Ion Ca) 1.08 1.05-1.25 [facility]2018-04-05 11:56:00 Test Item Value Reference Range Interpretation Comments POC AGAP (test code = POC AGAP) 18.0 10.0-20.0 [facility]2018-04-05 11:56:00 Test Item Value Reference Range Interpretation Comments POC Hemoglobin (test code = POC 11.9 14.0-18.0 Hemoglobin) [facility]2018-04-05 11:56:00 Test Item Value Reference Range Interpretation Comments POC Hematocrit (test code = POC 35.0 42.0-54.0 Hematocrit) [facility]2018-04-05 11:56:00 Test Item Value Reference Range Interpretation Comments POC Chloride (test code = POC Chloride) 103 95-109 [facility]2018-04-05 11:56:00 Test Item Value Reference Range Interpretation Comments POC Sodium (test code = POC Sodium) 139 135-145 [facility]2018-04-05 11:56:00 Test Item Value Reference Range Interpretation Comments POC Potassium (test code = POC 3.7 3.5-5.1 Potassium) [facility]2018-04-05 11:56:00 Test Item Value Reference Range Interpretation Comments POC Carbon Dioxide (test code = POC 22 24-32 Carbon Dioxide) [facility]2018-02-15 21:17:00 Test Item Value Reference Range Interpretation Comments POC Ion Ca (test code = POC Ion Ca) 1.05 1.05-1.25 [facility]2018-02-15 21:17:00 Test Item Value Reference Range Interpretation Comments POC Hemoglobin (test code = POC 11.6 14.0-18.0 Hemoglobin) [facility]2018-02-15 21:17:00 Test Item Value Reference Range Interpretation Comments POC AGAP (test code = POC AGAP) 18.0 10.0-20.0 [facility]2018-02-15 21:17:00 Test Item Value Reference Range Interpretation Comments POC Glucose (test code = POC Glucose) 88 70-99 [facility]2018-02-15 21:17:00 Test Item Value Reference Range Interpretation Comments POC Hematocrit (test code = POC 34.0 42.0-54.0 Hematocrit) [facility]2018-02-15 21:17:00 Test Item Value Reference Range Interpretation Comments POC Carbon Dioxide (test code = POC 24 24-32 Carbon Dioxide) [facility]2018-02-15 21:17:00 Test Item Value Reference Range Interpretation Comments POC Potassium (test code = POC 4.2 3.5-5.1 Potassium) [facility]2018-02-15 21:17:00 Test Item Value Reference Range Interpretation Comments POC Creatinine (test code = POC 6.2 0.5-1.4 Creatinine) [facility]2018-02-15 21:17:00 Test Item Value Reference Range Interpretation Comments POC BUN (test code = POC BUN) 27 7-22 [facility]2018-02-15 21:17:00 Test Item Value Reference Range Interpretation Comments POC Chloride (test code = POC Chloride) 103 95-109 [facility]2018-02-15 21:17:00 Test Item Value Reference Range Interpretation Comments POC Sodium (test code = POC Sodium) 139 135-145 [facility]2018-02-15 21:17:00 Test Item Value Reference Range Interpretation Comments eGFR (test code = eGFR) 9 [facility]2018-02-15 17:38:00 Test Item Value Reference Range Interpretation Comments eGFR (test code = eGFR) 9 [facility]2018-02-15 17:38:00 Test Item Value Reference Range Interpretation Comments POC Glucose (test code = POC Glucose) 108 70-99 [facility]2018-02-15 17:38:00 Test Item Value Reference Range Interpretation Comments POC Hematocrit (test code = POC 39.0 42.0-54.0 Hematocrit) [facility]2018-02-15 17:38:00 Test Item Value Reference Range Interpretation Comments POC Hemoglobin (test code = POC 13.3 14.0-18.0 Hemoglobin) [facility]2018-02-15 17:38:00 Test Item Value Reference Range Interpretation Comments POC Creatinine (test code = POC 6.2 0.5-1.4 Creatinine) [facility]2018-02-15 17:38:00 Test Item Value Reference Range Interpretation Comments POC BUN (test code = POC BUN) 27 7-22 [facility]2018-02-15 17:38:00 Test Item Value Reference Range Interpretation Comments POC Ion Ca (test code = POC Ion Ca) 1.13 1.05-1.25 [facility]2018-02-15 17:38:00 Test Item Value Reference Range Interpretation Comments POC AGAP (test code = POC AGAP) 17.0 10.0-20.0 [facility]2018-02-15 17:38:00 Test Item Value Reference Range Interpretation Comments POC Potassium (test code = POC 3.9 3.5-5.1 Potassium) [facility]2018-02-15 17:38:00 Test Item Value Reference Range Interpretation Comments POC Chloride (test code = POC Chloride) 103 95-109 [facility]2018-02-15 17:38:00 Test Item Value Reference Range Interpretation Comments POC Carbon Dioxide (test code = POC 23 24-32 Carbon Dioxide) [facility]2018-02-15 17:38:00 Test Item Value Reference Range Interpretation Comments POC Sodium (test code = POC Sodium) 138 135-145 [facility]XgbzkeeYKBEFCESPG1540-85-52 17:16:00 Test Item Value Reference Range Interpretation Comments POC Hematocrit (test code = POC 34.0 42.0-54.0 Hematocrit) [facility] CenterBouwaafBNLHSYTYFN1869-57-58 17:16:00 Test Item Value Reference Range Interpretation Comments POC Potassium (test code = POC 4.3 3.5-5.1 Potassium) [facility] CenterEmmborkDMUJTNXCIK4053-09-88 17:16:00 Test Item Value Reference Range Interpretation Comments POC Sodium (test code = POC Sodium) 140 135-145 [facility] CenterWrfrptqLTOXVKZIHL7792-70-80 17:16:00 Test Item Value Reference Range Interpretation Comments POC Chloride (test code = POC Chloride) 106 95-109 [facility] CenterJixkplpRUNFALKJKP8959-06-59 17:16:00 Test Item Value Reference Range Interpretation Comments POC Glucose (test code = POC Glucose) 118 70-99 [facility] CenterLtjefkvQWBJLMAWCF4945-47-53 17:16:00 Test Item Value Reference Range Interpretation Comments POC BUN (test code = POC BUN) 04-19 [facility] CenterIewghduCCYVJSXGLO3435-46-12 17:16:00 Test Item Value Reference Range Interpretation Comments POC Hemoglobin (test code = POC 11.6 14.0-18.0 Hemoglobin) [facility] CenterGoasqihIHTZWPCAHV8910-42-96 12:26:00 Test Item Value Reference Range Interpretation Comments POC Hematocrit (test code = POC 39.0 42.0-54.0 Hematocrit) [facility] CenterCdusxxzJQZJURQLEE5148-29-60 12:26:00 Test Item Value Reference Range Interpretation Comments POC Hemoglobin (test code = POC 13.3 14.0-18.0 Hemoglobin) [facility] CenterNkafiwrAFPUYJAKNM1770-62-43 12:26:00 Test Item Value Reference Range Interpretation Comments POC BUN (test code = POC BUN) 04-19 [facility] CenterQeqrokuSLMAEHVXGM4357-87-67 12:26:00 Test Item Value Reference Range Interpretation Comments POC Glucose (test code = POC Glucose) 108 70-99 [facility] CenterNqtteqrODUJOGKDXH0216-41-79 12:26:00 Test Item Value Reference Range Interpretation Comments POC Sodium (test code = POC Sodium) 139 135-145 [facility] CenterRzblkwvTBSTAHXUHH6720-42-42 12:26:00 Test Item Value Reference Range Interpretation Comments POC Chloride (test code = POC Chloride) 105 95-109 [facility] CenterVkevhovCFKHKWPUUV8592-04-49 12:26:00 Test Item Value Reference Range Interpretation Comments POC Potassium (test code = POC 4.2 3.5-5.1 Potassium) [facility] CenterGvsbtkgHZNJNJMHJI1699-62-01 18:25:00 Test Item Value Reference Range Interpretation Comments POC Hematocrit (test code = POC 30.0 42.0-54.0 Hematocrit) [facility] CenterOqpzuniWDANRFCRDY2330-05-32 18:25:00 Test Item Value Reference Range Interpretation Comments POC Hemoglobin (test code = POC 10.2 14.0-18.0 Hemoglobin) [facility] CenterNlbrircZNMPTJMBKY0805-60-45 18:25:00 Test Item Value Reference Range Interpretation Comments POC Glucose (test code = POC Glucose) 94 70-99 [facility] CenterCzekrfyDKRQXGNFXR2253-41-10 18:25:00 Test Item Value Reference Range Interpretation Comments POC Chloride (test code = POC Chloride) 103 95-109 [facility] CenterTnegpujZYBEMEQOTC1694-25-35 18:25:00 Test Item Value Reference Range Interpretation Comments POC Sodium (test code = POC Sodium) 135 135-145 [facility] CenterAcfbtvuVHXCXBETAG6763-62-53 18:25:00 Test Item Value Reference Range Interpretation Comments POC Potassium (test code = POC 5.5 3.5-5.1 Potassium) [facility] CenterKioxaiwVSJFHTEWFX3089-47-17 18:25:00 Test Item Value Reference Range Interpretation Comments POC BUN (test code = POC BUN) 16 7- [facility] ServicesWpisguzUSATPFKGHSYL9496-89-87 15:01:00 Test Item Value Reference Range Interpretation Comments POC Sodium (test code = POC Sodium) 135 135-145 [facility] ServicesXsdlydoKTDPGBQQGEAL0678-17-53 15:01:00 Test Item Value Reference Range Interpretation Comments POC Hematocrit (test code = POC 31.0 42.0-54.0 Hematocrit) [facility] ServicesPwixgqnSUQUQBGPAKGE8908-46-83 15:01:00 Test Item Value Reference Range Interpretation Comments POC Hemoglobin (test code = POC 10.5 14.0-18.0 Hemoglobin) [facility] ServicesAmzvzolBKESBHABRDWE9724-56-15 15:01:00 Test Item Value Reference Range Interpretation Comments POC Chloride (test code = POC Chloride) 101 95-109 [facility] ServicesPhzlwhhLEQITJZHGWUG5642-53-62 15:01:00 Test Item Value Reference Range Interpretation Comments POC Potassium (test code = POC 4.7 3.5-5.1 Potassium) [facility] ServicesJroqdlwTPLMCASERNQP4698-94-69 15:01:00 Test Item Value Reference Range Interpretation Comments POC Glucose (test code = POC Glucose) 94 70-99 [facility] ServicesEngzlxsZAZQQSZACQDA2368-27-68 15:01:00 Test Item Value Reference Range Interpretation Comments POC BUN (test code = POC BUN) 15 04-19 [facility]GkvuuecNEARIQEJCQ8404-17-69 21:42:00 Test Item Value Reference Range Interpretation Comments Hep B Core Ab (test Negative *NA*(04/10/17 code = Hep B Core Ab) 4:42 PM) [facility] HospitalDncpchzYSQNOSZBXD8220-22-64 21:42:00 Test Item Value Reference Range Interpretation Comments Hep Bs Ag (test code Negative *NA*(04/10/17 = Hep Bs Ag) 4:42 PM) [facility] HospitalZodnhmbTMQYMLKWUI4828-07-46 21:42:00 Test Item Value Reference Range Interpretation Comments Hep C Ab (test code = Positive *ABN*(04/10/17 Hep C Ab) 4:42 PM) [facility] HospitalXzvadtuPWQOEPDXBU4120-19-41 21:42:00 Test Item Value Reference Range Interpretation Comments Hep Bs Ab (test code = Hep Bs Ab) no gt [facility]2017-07-13 00:27:00 Test Item Value Reference Range Interpretation Comments eGFR (test code = eGFR) 5 [facility]2017-07-13 00:27:00 Test Item Value Reference Range Interpretation Comments Glucose Lvl (test code = Glucose Lvl) 90 70-99 [facility]2017-07-13 00:27:00 Test Item Value Reference Range Interpretation Comments BUN (test code = BUN) 66 7 [facility]2017-07-13 00:27:00 Test Item Value Reference Range Interpretation Comments Creatinine Lvl (test code = Creatinine 10.00 0.50-1.40 Lvl) [facility]2017-07-13 00:27:00 Test Item Value Reference Range Interpretation Comments Sodium Lvl (test code = Sodium Lvl) 136 135-145 [facility]English HelperNOV[facility] HOSPITALOEKZP4075-56-80 00:27:00 Test Item Value Reference Range Interpretation Comments ALT (test code = ALT) 23 See_Comment [Auto mated message] The system which ge nerated this result transmit cruz reference range : <=65. The reference range was not used to interpr et this result as gee l/abnormal. [facility] [employer] [id number] 00:27:00 Test Item Value Reference Range Interpretation Comments Alk Phos (test code = Alk Phos) 140 39-136 [facility] [id number] 00:27:00 Test Item Value Reference Range Interpretation Comments AST (test code = AST) 10 See_Comment [Auto mated message] The system which ge nerated this result transmit cruz reference range : <=37. The reference range was not used to interpr et this result as gee l/abnormal. [facility] [id number] 00:27:00 Test Item Value Reference Range Interpretation Comments Bili Total (test code = Bili Total) 0.2 0.2-1.3 [facility] [id number] 00:27:00 Test Item Value Reference Range Interpretation Comments Chloride Lvl (test code = Chloride Lvl) 104 95-109 [facility] [id number] 00:27:00 Test Item Value Reference Range Interpretation Comments Potassium Lvl (test code = Potassium 4.6 3.5-5.1 Lvl) [facility] [id number] 00:27:00 Test Item Value Reference Range Interpretation Comments CO2 (test code = CO2) 20 24-32 [facility] [id number] 00:27:00 Test Item Value Reference Range Interpretation Comments Calcium Lvl (test code = Calcium Lvl) 8.1 8.5-10.5 [facility] [id number] 00:27:00 Test Item Value Reference Range Interpretation Comments Total Protein (test code = Total 8.0 6.4-8.4 Protein) [facility] [id number] 00:27:00 Test Item Value Reference Range Interpretation Comments Albumin Lvl (test code = Albumin Lvl) 3.4 3.5-5.0 [facility] [id number] 00:27:00 Test Item Value Reference Range Interpretation Comments AGAP (test code = AGAP) 16.6 10.0-20.0 [facility]2017-07-13 00:27:00 Test Item Value Reference Range Interpretation Comments B/C Ratio (test code = B/C Ratio) 7 6-25 [facility]2017-07-13 00:27:00 Test Item Value Reference Range Interpretation Comments Globulin (test code = Globulin) 4.6 2.7-4.2 [facility]2017-07-13 00:27:00 Test Item Value Reference Range Interpretation Comments A/G Ratio (test code = A/G Ratio) 0.7 0.7-1.6 [facility]CbgawotZQFIVYEEBW3105-60-17 00:27:00 Test Item Value Reference Range Interpretation Comments MPV (test code = MPV) 9.3 7.4-10.4 [facility] CenterWadctpcVGJCTVSKER6735-55-98 00:27:00 Test Item Value Reference Range Interpretation Comments Hct (test code = Hct) 32.4 42.0-54.0 [facility] CenterRcpnvmsDIRWQIHTQA9931-91-48 00:27:00 Test Item Value Reference Range Interpretation Comments MCV (test code = MCV) 88.9 80.0-94.0 [facility] CenterDyrgajoTLJCDXRLPO3729-05-11 00:27:00 Test Item Value Reference Range Interpretation Comments MCH (test code = MCH) 29.5 pg 27.0-31.0 [facility] CenterEpdccijFCOTWHSTOR4445-99-47 00:27:00 Test Item Value Reference Range Interpretation Comments Platelet (test code = Platelet) 216 133-450 [facility] CenterQddxcksVTKLMDGWQS5673-18-68 00:27:00 Test Item Value Reference Range Interpretation Comments MCHC (test code = MCHC) 33.1 32.0-36.0 [facility] CenterGhcwcvzHNEJSRNMUH5311-08-02 00:27:00 Test Item Value Reference Range Interpretation Comments RDW (test code = RDW) 12.6 11.5-14.5 [facility] CenterHtfvbqjWPQHVHGUIJ5718-40-99 00:27:00 Test Item Value Reference Range Interpretation Comments Hgb (test code = Hgb) 10.7 14.0-18.0 [facility] CenterVccoyekSXUZSLMUGB2430-70-90 00:27:00 Test Item Value Reference Range Interpretation Comments RBC (test code = RBC) 3.65 4.70-6.10 [facility] CenterPaunxnvEHACBDPYHK3680-62-56 00:27:00 Test Item Value Reference Range Interpretation Comments WBC (test code = WBC) 8.8 3.7-10.4 [facility] CenterGtkenbiMCWAENXZSH4040-03-90 00:27:00 Test Item Value Reference Range Interpretation Comments Basophils # (test code 0.0 See_Comment [Aut omated message] The = Basophils #) system which generated this result tra nsmitted reference range : <=0.2. The reference r jillian was not used to int erpret this result as normal/abnormal . [facility] CenterAvseholLRMMLHXUMD1323-98-74 00:27:00 Test Item Value Reference Range Interpretation Comments Eosinophils # (test code 0.1 See_Comment [A utomated message] The = Eosinophils #) system whic h generated this result tra nsmitted reference range : <=0.5. The reference r jillian was not used to int erpret this result as normal/abnormal . [facility] CenterFtjslanCAVUZEJSCA4136-17-43 00:27:00 Test Item Value Reference Range Interpretation Comments Monocytes # (test code 0.5 See_Comment [Aut omated message] The = Monocytes #) system which generated this result tra nsmitted reference range : <=0.8. The reference r jillian was not used to int erpret this result as normal/abnormal . [facility] CenterXmpuogyVFEEFHCDMR9326-97-50 00:27:00 Test Item Value Reference Range Interpretation Comments Lymphocytes # (test code = Lymphocytes 1.3 1.0-5.5 #) [facility] CenterUrhhoprSRQFZMBSSH7599-99-53 00:27:00 Test Item Value Reference Range Interpretation Comments Segs (test code = Segs) 78.2 45.0-75.0 [facility] CenterSotajruUERWEOEPUI3973-04-25 00:27:00 Test Item Value Reference Range Interpretation Comments Lymphocytes (test code = Lymphocytes) 14.8 20.0-40.0 [facility] CenterBnnzsviATTOIVTKSD0867-91-76 00:27:00 Test Item Value Reference Range Interpretation Comments Monocytes (test code = Monocytes) 5.8 2.0-12.0 [facility] CenterLwcedonYMCGHPKDUG5489-26-61 00:27:00 Test Item Value Reference Range Interpretation Comments Segs-Bands # (test code = Segs-Bands #) 6.8 1.5-8.1 [facility] CenterVjpetsrFPPFGCLGQD6154-38-67 00:27:00 Test Item Value Reference Range Interpretation Comments Basophils (test code = 0.3 See_Comment [Aut omated message] The Basophils) system which ge nerated this result tra nsmitted reference range : <=1.0. The reference r jillian was not used to int erpret this result as normal/abnormal . [facility] CenterDutuyjsXTSNJLKGEF5975-26-64 00:27:00 Test Item Value Reference Range Interpretation Comments Eosinophils (test code = 0.9 See_Comment [A utomated message] The Eosinophils) system which ge nerated this result tra nsmitted reference range : <=4.0. The reference r jillian was not used to int erpret this result as normal/abnormal . [facility]2017-07-12 22:46:00 Test Item Value Reference Range Interpretation Comments eGFR (test code = eGFR) 5 [facility]2017-07-12 22:46:00 Test Item Value Reference Range Interpretation Comments Glucose Lvl (test code = Glucose Lvl) 89 70-99 [facility]2017-07-12 22:46:00 Test Item Value Reference Range Interpretation Comments Sodium Lvl (test code = Sodium Lvl) 134 135-145 [facility]2017-07-12 22:46:00 Test Item Value Reference Range Interpretation Comments BUN (test code = BUN) 65 7-22 [facility]2017-07-12 22:46:00 Test Item Value Reference Range Interpretation Comments Potassium Lvl (test code = Potassium 4.6 3.5-5.1 Lvl) [facility]2017-07-12 22:46:00 Test Item Value Reference Range Interpretation Comments Calcium Lvl (test code = Calcium Lvl) 8.4 8.5-10.5 [facility]2017-07-12 22:46:00 Test Item Value Reference Range Interpretation Comments Chloride Lvl (test code = Chloride Lvl) 104 95-109 [facility]2017-07-12 22:46:00 Test Item Value Reference Range Interpretation Comments CO2 (test code = CO2) 21 24-32 [facility]2017-07-12 22:46:00 Test Item Value Reference Range Interpretation Comments Creatinine Lvl (test code = Creatinine 10.00 0.50-1.40 Lvl) [facility]2017-07-12 22:46:00 Test Item Value Reference Range Interpretation Comments AGAP (test code = AGAP) 13.6 10.0-20.0 [facility]anoWjkdefuTTEVYVCZNL1037-75-00 20:03:00 Test Item Value Reference Range Interpretation Comments Hep Bs Ag (test code Negative *NA*(03/17/17 = Hep Bs Ag) 3:03 PM) [facility]anoNzpwhncUIFABHNMEU1148-88-87 20:03:00 Test Item Value Reference Range Interpretation Comments Hep C Ab (test code = Positive *ABN*(03/17/17 Hep C Ab) 3:03 PM) [facility] HospitalAujffiuVGUTHHVWUS1699-96-26 20:03:00 Test Item Value Reference Range Interpretation Comments Hep A IgM (test code Negative *NA*(03/17/17 = Hep A IgM) 3:03 PM) [facility] HospitalPbcglsaQSRVSTUFDD6022-57-64 20:03:00 Test Item Value Reference Range Interpretation Comments Hep B Core IgM (test Negative *NA*(03/17/17 code = Hep B Core 3:03 PM) IgM) [facility] HospitalGdcuzclHGBZZPAYXX7607-43-43 16:52:00 Test Item Value Reference Range Interpretation Comments Hep Bs Ab (test code = Hep Bs Ab) no gt [facility]SztveirJCDXNIVWEAEH6468-06-33 10:52:00 Test Item Value Reference Range Interpretation Comments AGAP (test code = AGAP) 14.8 10.0-20.0 [facility]entonItdvoafERMWHTQVCPCG6419-24-29 10:52:00 Test Item Value Reference Range Interpretation Comments eGFR (test code = eGFR) 8 [facility]entonAbiyyjwPVLDZCQGDZDT5929-56-67 10:52:00 Test Item Value Reference Range Interpretation Comments Calcium Lvl (test code = Calcium Lvl) 7.6 8.5-10.5 [facility]entonHttvrxxTQUKAUGGHYMZ6031-61-15 10:52:00 Test Item Value Reference Range Interpretation Comments Glucose Lvl (test code = Glucose Lvl) 105 70-99 [facility] DentonZongbotGBXCWFMWFYKT4129-80-03 10:52:00 Test Item Value Reference Range Interpretation Comments BUN (test code = BUN) 39 7-22 [facility] ServicesEihrgehUSLUIPULRKBC0908-24-16 10:52:00 Test Item Value Reference Range Interpretation Comments Sodium Lvl (test code = Sodium Lvl) 137 135-145 [facility] ServicesDcsfsluPDSPJJSFFCPG3874-38-38 10:52:00 Test Item Value Reference Range Interpretation Comments Potassium Lvl (test code = Potassium 3.8 3.5-5.1 Lvl) [facility] ServicesItqmyhgWZHWPNSBQZAO6631-13-76 10:52:00 Test Item Value Reference Range Interpretation Comments Creatinine Lvl (test code = Creatinine 7.44 0.50-1.40 Lvl) [facility] ServicesMoytsokVOUIQTMFUNFS4821-13-52 10:52:00 Test Item Value Reference Range Interpretation Comments Chloride Lvl (test code = Chloride Lvl) 100 95-109 [facility] ServicesUkrjzafGWLFADEOCOBS9677-78-49 10:52:00 Test Item Value Reference Range Interpretation Comments CO2 (test code = CO2) 26 24-32 [facility] CenterMlcawcpJCYWCQQHNR7715-74-82 10:52:00 Test Item Value Reference Range Interpretation Comments Hct (test code = Hct) 35.4 42.0-54.0 [facility] CenterDriqmktKGRFVGWYFK3497-21-75 10:52:00 Test Item Value Reference Range Interpretation Comments RBC (test code = RBC) 3.95 4.70-6.10 [facility] CenterLhdgljnAITEBZRQXG0055-66-34 10:52:00 Test Item Value Reference Range Interpretation Comments Hgb (test code = Hgb) 11.7 14.0-18.0 [facility] CenterQzrhsuoPAZUKFHCTU6474-21-46 10:52:00 Test Item Value Reference Range Interpretation Comments WBC (test code = WBC) 8.7 3.7-10.4 [facility] CenterFqdefstOCOZPIKRQS0630-23-25 10:52:00 Test Item Value Reference Range Interpretation Comments MPV (test code = MPV) 10.2 7.4-10.4 [facility] CenterIoydpukRXDPQHJMHX7555-98-56 10:52:00 Test Item Value Reference Range Interpretation Comments Platelet (test code = Platelet) 176 133-450 [facility] CenterQwsojqqDJYAWNBGAS0145-88-06 10:52:00 Test Item Value Reference Range Interpretation Comments RDW (test code = RDW) 13.2 11.5-14.5 [facility] CenterNzhgvbzULXOJWUMHS2897-24-61 10:52:00 Test Item Value Reference Range Interpretation Comments MCHC (test code = MCHC) 33.0 32.0-36.0 [facility] CenterWgjplaxZXSXRODTYQ4490-74-63 10:52:00 Test Item Value Reference Range Interpretation Comments MCV (test code = MCV) 89.6 80.0-94.0 [facility] CenterPlbhixuJNLGBNLFLM0334-35-70 10:52:00 Test Item Value Reference Range Interpretation Comments MCH (test code = MCH) 29.5 pg 27.0-31.0 [facility] HospitalBfltzwuCQAKYCTVVL8193-80-33 20:06:00 Test Item Value Reference Range Interpretation Comments Hep A IgM (test code Negative *NA*(03/13/17 = Hep A IgM) 3:06 PM) [facility] HospitalRdlmiytAAATVVEASW9555-08-15 20:06:00 Test Item Value Reference Range Interpretation Comments Hep Bs Ag (test code Negative *NA*(03/13/17 = Hep Bs Ag) 3:06 PM) [facility] HospitalXkzsauxISSXFFKZBN5001-17-79 20:06:00 Test Item Value Reference Range Interpretation Comments Hep B Core IgM (test Negative *NA*(03/13/17 code = Hep B Core 3:06 PM) IgM) [facility] HospitalWaqmshtUBOQLDWPVN8175-75-88 20:06:00 Test Item Value Reference Range Interpretation Comments Hep C Ab (test code = Positive *ABN*(03/13/17 Hep C Ab) 3:06 PM) [facility] HospitalSziamayTAQRTYDAWF7689-55-64 20:06:00 Test Item Value Reference Range Interpretation Comments Hep B Core Ab (test Negative *NA*(03/13/17 code = Hep B Core Ab) 3:06 PM) [facility] HospitalQmtbviePXPWXBGFCG9598-16-53 11:14:00 Test Item Value Reference Range Interpretation Comments Hep Be Ab (test code = Hep Be Ab) Negative [facility] HospitalLnosmmzDBCRDXHXJY0473-83-38 23:21:00 Test Item Value Reference Range Interpretation Comments Hep Bs Ag (test code Negative *NA*(03/12/17 = Hep Bs Ag) 6:21 PM) [facility] HospitalDtoqxgiOMOIEZKKOK8626-46-14 23:21:00 Test Item Value Reference Range Interpretation Comments Hep Bs Ag (test code Negative *NA*(03/12/17 = Hep Bs Ag) 6:21 PM) [facility] HospitalYmmhubaCZQMUTNYYU4506-51-19 23:21:00 Test Item Value Reference Range Interpretation Comments Hep B Core Ab (test Negative *NA*(03/12/17 code = Hep B Core Ab) 6:21 PM) [facility]2017-06-14 11:03:00 Test Item Value Reference Range Interpretation Comments Magnesium Lvl (test code = Magnesium 2.0 1.8-2.4 Lvl) [facility] ServicesCivfnwlCYYCQYUZJFZA7910-87-29 11:03:00 Test Item Value Reference Range Interpretation Comments AGAP (test code = AGAP) 15.8 10.0-20.0 [facility] ServicesBnhveisUZSMVYLRJPEA1945-36-99 11:03:00 Test Item Value Reference Range Interpretation Comments Phosphorus (test code = Phosphorus) 6.2 2.5-4.5 [facility] ServicesPytxrvdCVKZJQWLNTJU9536-88-04 11:03:00 Test Item Value Reference Range Interpretation Comments Albumin Lvl (test code = Albumin Lvl) 2.7 3.5-5.0 [facility] ServicesBlmjyhzSDEVZWEJELWX9456-18-22 11:03:00 Test Item Value Reference Range Interpretation Comments Chloride Lvl (test code = Chloride Lvl) 108 95-109 [facility] ServicesXrrmhciDGIBWEAEMULL5478-69-27 11:03:00 Test Item Value Reference Range Interpretation Comments CO2 (test code = CO2) 20 24-32 [facility] ServicesLhmclxcEBARHGFZFHIB4689-18-60 11:03:00 Test Item Value Reference Range Interpretation Comments Calcium Lvl (test code = Calcium Lvl) 7.4 8.5-10.5 [facility] ServicesDiqplgmMFJNZXANUQSM0522-05-76 11:03:00 Test Item Value Reference Range Interpretation Comments Sodium Lvl (test code = Sodium Lvl) 139 135-145 [facility] ServicesChtrygtCOOBVKUGLVCA4014-29-03 11:03:00 Test Item Value Reference Range Interpretation Comments Creatinine Lvl (test code = Creatinine 9.27 0.50-1.40 Lvl) [facility] ServicesNkqyrmnOFFXJKSSSNTR2698-73-55 11:03:00 Test Item Value Reference Range Interpretation Comments BUN (test code = BUN) 60 7-22 [facility] ServicesSxrgwpdYAGCHESMPFYN2359-34-49 11:03:00 Test Item Value Reference Range Interpretation Comments Potassium Lvl (test code = Potassium 4.8 3.5-5.1 Lvl) [facility] ServicesAmcwauhHTHMBUPCRYDT0251-91-68 11:03:00 Test Item Value Reference Range Interpretation Comments Glucose Lvl (test code = Glucose Lvl) 88 70-99 [facility]anoVirhqsoFWECTJSERBHN0395-63-86 11:03:00 Test Item Value Reference Range Interpretation Comments eGFR (test code = eGFR) 6 [facility]2017-06-13 18:59:00 Test Item Value Reference Range Interpretation Comments U Creatinine (test code = U Creatinine) 76.70 [facility]2017-06-13 18:59:00 Test Item Value Reference Range Interpretation Comments U Protein (test code = U Protein) 360.8 [facility]2017-06-13 18:59:00 Test Item Value Reference Range Interpretation Comments U Eos (test code = U None Seen (03/11/17 1:59 Eos) PM) [facility]2017-06-13 18:59:00 Test Item Value Reference Range Interpretation Comments U Sodium (test code = U Sodium) 68 [facility]2017-06-13 18:59:00 Test Item Value Reference Range Interpretation Comments U Prot/Creat (test code = U Prot/Creat) 4.7 [facility]2017-06-13 09:56:00 Test Item Value Reference Range Interpretation Comments A/G Ratio (test code = A/G Ratio) 0.6 0.7-1.6 [facility]2017-06-13 09:56:00 Test Item Value Reference Range Interpretation Comments AGAP (test code = AGAP) 16.5 10.0-20.0 [facility]2017-06-13 09:56:00 Test Item Value Reference Range Interpretation Comments B/C Ratio (test code = B/C Ratio) 6 -25 [facility]2017-06-13 09:56:00 Test Item Value Reference Range Interpretation Comments Globulin (test code = Globulin) 4.6 2.7-4.2 [facility]2017-06-13 09:56:00 Test Item Value Reference Range Interpretation Comments Bili Total (test code = Bili Total) 0.3 0.2-1.3 [facility]2017-06-13 09:56:00 Test Item Value Reference Range Interpretation Comments Alk Phos (test code = Alk Phos) 123 39-136 [facility]2017-06-13 09:56:00 Test Item Value Reference Range Interpretation Comments AST (test code = AST) 12 See_Comment [Auto mated message] The system which ge nerated this result transmit cruz reference range : <=37. The reference range was not used to interpr et this result as gee l/abnormal. [facility]2017-06-13 09:56:00 Test Item Value Reference Range Interpretation Comments Total Protein (test code = Total 7.3 6.4-8.4 Protein) [facility]2017-06-13 09:56:00 Test Item Value Reference Range Interpretation Comments Albumin Lvl (test code = Albumin Lvl) 2.7 3.5-5.0 [facility]2017-06-13 09:56:00 Test Item Value Reference Range Interpretation Comments ALT (test code = ALT) 17 See_Comment [Auto mated message] The system which ge nerated this result transmit cruz reference range : <=65. The reference range was not used to interpr et this result as gee l/abnormal. [facility]2017-06-13 09:56:00 Test Item Value Reference Range Interpretation Comments CO2 (test code = CO2) 21 24-32 [facility]2017-06-13 09:56:00 Test Item Value Reference Range Interpretation Comments Calcium Lvl (test code = Calcium Lvl) 7.5 8.5-10.5 [facility]2017-06-13 09:56:00 Test Item Value Reference Range Interpretation Comments Potassium Lvl (test code = Potassium 4.5 3.5-5.1 Lvl) [facility]2017-06-13 09:56:00 Test Item Value Reference Range Interpretation Comments Creatinine Lvl (test code = Creatinine 9.18 0.50-1.40 Lvl) [facility]2017-06-13 09:56:00 Test Item Value Reference Range Interpretation Comments Sodium Lvl (test code = Sodium Lvl) 141 135-145 [facility]2017-06-13 09:56:00 Test Item Value Reference Range Interpretation Comments BUN (test code = BUN) 59 7-22 [facility]2017-06-13 09:56:00 Test Item Value Reference Range Interpretation Comments Chloride Lvl (test code = Chloride Lvl) 108 95-109 [facility]2017-06-13 09:56:00 Test Item Value Reference Range Interpretation Comments eGFR (test code = eGFR) 6 [facility]2017-06-13 09:56:00 Test Item Value Reference Range Interpretation Comments Glucose Lvl (test code = Glucose Lvl) 86 70-99 [facility]2017-06-13 09:56:00 Test Item Value Reference Range Interpretation Comments Phosphorus (test code = Phosphorus) 5.9 2.5-4.5 [facility]2017-06-13 09:56:00 Test Item Value Reference Range Interpretation Comments Magnesium Lvl (test code = Magnesium 2.0 1.8-2.4 Lvl) [facility]JqvekteOWMMCCKPXH3887-04-77 09:56:00 Test Item Value Reference Range Interpretation Comments Platelet (test code = Platelet) 225 133-450 [facility]XhuwnwzGVCFTHYTLX1791-52-36 09:56:00 Test Item Value Reference Range Interpretation Comments MPV (test code = MPV) 10.2 7.4-10.4 [facility] CenterNnrhennTQOFPIRSID3105-22-15 09:56:00 Test Item Value Reference Range Interpretation Comments MCHC (test code = MCHC) 32.5 32.0-36.0 [facility] CenterLgejivkAYKWNENNKA2327-83-51 09:56:00 Test Item Value Reference Range Interpretation Comments RDW (test code = RDW) 12.9 11.5-14.5 [facility] CenterYwslavvOTFBNJESPK8064-39-21 09:56:00 Test Item Value Reference Range Interpretation Comments MCV (test code = MCV) 89.7 80.0-94.0 [facility] CenterMmiejeiXNOFDSDGXC3212-77-07 09:56:00 Test Item Value Reference Range Interpretation Comments MCH (test code = MCH) 29.1 pg 27.0-31.0 [facility] CenterCvmpchxXYETLKFHZP0197-72-96 09:56:00 Test Item Value Reference Range Interpretation Comments Hct (test code = Hct) 37.0 42.0-54.0 [facility] CenterRntbdzrZMCJPPHIWV4185-46-13 09:56:00 Test Item Value Reference Range Interpretation Comments RBC (test code = RBC) 4.12 4.70-6.10 [facility] CenterVtihpwlSNRYYUDOYW1637-07-48 09:56:00 Test Item Value Reference Range Interpretation Comments Hgb (test code = Hgb) 12.0 14.0-18.0 [facility] CenterNgexuroWQSXHPACUL7335-82-85 09:56:00 Test Item Value Reference Range Interpretation Comments WBC (test code = WBC) 8.8 3.7-10.4 [facility] CenterYzrpdjuBUSUZHYYWK0482-90-66 09:56:00 Test Item Value Reference Range Interpretation Comments Monocytes (test code = Monocytes) 9.7 2.0-12.0 [facility] CenterWebitgvVVOJFTOONN5491-47-80 09:56:00 Test Item Value Reference Range Interpretation Comments Eosinophils (test code = 2.8 See_Comment [A utomated message] The Eosinophils) system which ge nerated this result tra nsmitted reference range : <=4.0. The reference r jillian was not used to int erpret this result as normal/abnormal . [facility] CenterMqqhhozHWNNUIKJUO5115-35-30 09:56:00 Test Item Value Reference Range Interpretation Comments Segs (test code = Segs) 62.8 45.0-75.0 [facility] CenterDkdtwatXLIDWTNPXA8701-98-40 09:56:00 Test Item Value Reference Range Interpretation Comments Lymphocytes (test code = Lymphocytes) 23.8 20.0-40.0 [facility] CenterFjwwmmmKYJHJFPGCP7669-97-86 09:56:00 Test Item Value Reference Range Interpretation Comments Basophils # (test code 0.1 See_Comment [Aut omated message] The = Basophils #) system which generated this result tra nsmitted reference range : <=0.2. The reference r jillian was not used to int erpret this result as normal/abnormal . [facility] CenterBsymtjrXRUVBUGWLR9499-14-95 09:56:00 Test Item Value Reference Range Interpretation Comments Lymphocytes # (test code = Lymphocytes 2.1 1.0-5.5 #) [facility] CenterNvsywgaXCVOWTPTWU7159-27-93 09:56:00 Test Item Value Reference Range Interpretation Comments Basophils (test code = 0.9 See_Comment [Aut omated message] The Basophils) system which ge nerated this result tra nsmitted reference range : <=1.0. The reference r jillian was not used to int erpret this result as normal/abnormal . [facility] CenterJsrhjqgTTGSSFWOIW8326-42-25 09:56:00 Test Item Value Reference Range Interpretation Comments Eosinophils # (test code 0.2 See_Comment [A utomated message] The = Eosinophils #) system whic h generated this result tra nsmitted reference range : <=0.5. The reference r jillian was not used to int erpret this result as normal/abnormal . [facility]VyerpihODSJNNXOAV2691-80-12 09:56:00 Test Item Value Reference Range Interpretation Comments Segs-Bands # (test code = Segs-Bands #) 5.5 1.5-8.1 [facility] CenterIaoghldCWMCTGTPDO3622-03-08 09:56:00 Test Item Value Reference Range Interpretation Comments Monocytes # (test code 0.9 See_Comment [Aut omated message] The = Monocytes #) system which generated this result tra nsmitted reference range : <=0.8. The reference r jillian was not used to int erpret this result as normal/abnormal . [facility]ATHY[facility]ID CWKFGUB9478-56-98 09:56:00 Test Item Value Reference Range Interpretation Comments Ca Norm WB (test code = Ca Norm WB) 0.93 1.05-1.25 [facility]PARATHY[facility]ID SFFLVUM2282-21-94 09:56:00 Test Item Value Reference Range Interpretation Comments Ca Ion WB (test code = Ca Ion WB) 0.97 1.05-1.25 [facility] HospitalCARDIAC UMVVTFY8561-98-91 22:14:00 Test Item Value Reference Range Interpretation Comments BNP (test code = BNP) 59 [facility] HospitalCHEM [id number] 22:13:00 Test Item Value Reference Range Interpretation Comments ALT (test code = ALT) 21 See_Comment [Auto mated message] The system which ge nerated this result transmit cruz reference range : <=65. The reference range was not used to interpr et this result as gee l/abnormal. [facility] WSFBW0432-48-11 22:13:00 Test Item Value Reference Range Interpretation Comments Albumin Lvl (test code = Albumin Lvl) 2.9 3.5-5.0 [facility] WMZCI5535-00-05 22:13:00 Test Item Value Reference Range Interpretation Comments AST (test code = AST) 14 See_Comment [Auto mated message] The system which ge nerated this result transmit cruz reference range : <=37. The reference range was not used to interpr et this result as gee l/abnormal. [facility]2017-06-12 22:13:00 Test Item Value Reference Range Interpretation Comments Total Protein (test code = Total 7.8 6.4-8.4 Protein) [facility]2017-06-12 22:13:00 Test Item Value Reference Range Interpretation Comments Bili Total (test code = Bili Total) 0.2 0.2-1.3 [facility]2017-06-12 22:13:00 Test Item Value Reference Range Interpretation Comments Alk Phos (test code = Alk Phos) 133 39-136 [facility]2017-06-12 22:13:00 Test Item Value Reference Range Interpretation Comments Globulin (test code = Globulin) 4.9 2.7-4.2 [facility]2017-06-12 22:13:00 Test Item Value Reference Range Interpretation Comments B/C Ratio (test code = B/C Ratio) 6 6-25 [facility]2017-06-12 22:13:00 Test Item Value Reference Range Interpretation Comments A/G Ratio (test code = A/G Ratio) 0.6 0.7-1.6 [facility] CenterJzgvrqcBEHZCCQWJJ8460-59-55 22:13:00 Test Item Value Reference Range Interpretation Comments MPV (test code = MPV) 10.7 7.4-10.4 [facility] CenterMglhwxwCFCUPZTNBP3999-79-49 22:13:00 Test Item Value Reference Range Interpretation Comments MCV (test code = MCV) 89.4 80.0-94.0 [facility] CenterFmhtuqxNJZJKRYPSI6938-38-79 22:13:00 Test Item Value Reference Range Interpretation Comments MCHC (test code = MCHC) 33.0 32.0-36.0 [facility] CenterIokktfqRIPGMEFRUC4159-33-81 22:13:00 Test Item Value Reference Range Interpretation Comments RDW (test code = RDW) 13.0 11.5-14.5 [facility] CenterKpznenoTPWMUXPSNH1452-43-26 22:13:00 Test Item Value Reference Range Interpretation Comments MCH (test code = MCH) 29.5 pg 27.0-31.0 [facility] CenterUltqhofXBFERYRANB3375-92-48 22:13:00 Test Item Value Reference Range Interpretation Comments Platelet (test code = Platelet) 231 133-450 [facility] CenterFxnfngsKHTBZUWXXN3300-06-03 22:13:00 Test Item Value Reference Range Interpretation Comments Hgb (test code = Hgb) 12.0 14.0-18.0 [facility] CenterEjzlkbgUMQJFOSSHK3331-89-72 22:13:00 Test Item Value Reference Range Interpretation Comments Hct (test code = Hct) 36.5 42.0-54.0 [facility] CenterJlkmbogBRPPHICIAK8400-58-50 22:13:00 Test Item Value Reference Range Interpretation Comments RBC (test code = RBC) 4.09 4.70-6.10 [facility] CenterYvjnuztIIKFMXRLGM0747-85-97 22:13:00 Test Item Value Reference Range Interpretation Comments WBC (test code = WBC) 8.0 3.7-10.4 [facility] CenterWznqyokEWOTULJFPS4249-41-04 22:13:00 Test Item Value Reference Range Interpretation Comments Basophils # (test code 0.0 See_Comment [Aut omated message] The = Basophils #) system which generated this result tra nsmitted reference range : <=0.2. The reference r jillian was not used to int erpret this result as normal/abnormal . [facility] CenterFbtgmilWYSKSTKBKA9133-93-43 22:13:00 Test Item Value Reference Range Interpretation Comments Lymphocytes # (test code = Lymphocytes 1.5 1.0-5.5 #) [facility] CenterDlpvcnvPEVQFNYJTF9603-27-41 22:13:00 Test Item Value Reference Range Interpretation Comments Segs-Bands # (test code = Segs-Bands #) 5.8 1.5-8.1 [facility] CenterObxybhjNLYOJZCUDO0580-61-49 22:13:00 Test Item Value Reference Range Interpretation Comments Eosinophils # (test code 0.2 See_Comment [A utomated message] The = Eosinophils #) system whic h generated this result tra nsmitted reference range : <=0.5. The reference r jillian was not used to int erpret this result as normal/abnormal . [facility] CenterHbfronfHMAEMUZHYK3493-18-05 22:13:00 Test Item Value Reference Range Interpretation Comments Monocytes # (test code 0.4 See_Comment [Aut omated message] The = Monocytes #) system which generated this result tra nsmitted reference range : <=0.8. The reference r jillian was not used to int erpret this result as normal/abnormal . [facility] CenterLqcfdejNLCBKHCRBC7330-24-21 22:13:00 Test Item Value Reference Range Interpretation Comments Basophils (test code = 0.5 See_Comment [Aut omated message] The Basophils) system which ge nerated this result tra nsmitted reference range : <=1.0. The reference r jillian was not used to int erpret this result as normal/abnormal . [facility] CenterJaczgloGEMSBTQUHN7745-60-20 22:13:00 Test Item Value Reference Range Interpretation Comments Eosinophils (test code = 2.8 See_Comment [A utomated message] The Eosinophils) system which ge nerated this result tra nsmitted reference range : <=4.0. The reference r jillian was not used to int erpret this result as normal/abnormal . [facility] CenterKoxjhicZOFFUNQLNA3159-56-88 22:13:00 Test Item Value Reference Range Interpretation Comments Lymphocytes (test code = Lymphocytes) 19.0 20.0-40.0 [facility] CenterXlgpxgbBDYOTNHBQQ3646-03-14 22:13:00 Test Item Value Reference Range Interpretation Comments Monocytes (test code = Monocytes) 5.6 2.0-12.0 [facility] CenterUrvhcsnSNWCRMUSZD2500-78-22 22:13:00 Test Item Value Reference Range Interpretation Comments Segs (test code = Segs) 72.1 45.0-75.0 [facility]2017-06-12 22:13:00 Test Item Value Reference Range Interpretation Comments UA Spec Grav (test code = UA Spec Grav) 1.014 [facility]2017-06-12 22:13:00 Test Item Value Reference Range Interpretation Comments UA Urobilinogen (test code = UA <=1.0 mg/dL 0.1-1.0 Urobilinogen) [facility]2017-06-12 22:13:00 Test Item Value Reference Range Interpretation Comments UA Bili (test code = Negative *NA*(03/10/17 UA Bili) 5:13 PM) [facility]2017-06-12 22:13:00 Test Item Value Reference Range Interpretation Comments UA Ketones (test code = UA Negative mg/dL Ketones) [facility]2017-06-12 22:13:00 Test Item Value Reference Range Interpretation Comments UA Glucose (test code = UA Glucose) 50 mg/dL [facility] AND [id number] 22:13:00 Test Item Value Reference Range Interpretation Comments UA Blood (test code = Small *ABN*(03/10/17 UA Blood) 5:13 PM) [facility] AND [id number] 22:13:00 Test Item Value Reference Range Interpretation Comments UA Color (test code = Light Yellow UA Color) *NA*(03/10/17 5:13 PM) [facility] [id number] 22:13:00 Test Item Value Reference Range Interpretation Comments UA Mucus (test code = UA Mucus) Few /LPF [facility] AND [id number] 22:13:00 Test Item Value Reference Range Interpretation Comments UA RBC (test code = 27 See_Comment [Automa cruz message] The UA RBC) system which ge nerated this result transmit cruz reference range : <=2. The reference range was not used to interpr et this result as gee l/abnormal. [facility] AND [id number] 22:13:00 Test Item Value Reference Range Interpretation Comments UA Hyal Cast (test 1 See_Comment [Automat ed message] The code = UA Hyal Cast) system which generated this result transmit cruz reference range : <=2. The reference range was not used to interpr et this result as gee l/abnormal. [facility] AND [id number] 22:13:00 Test Item Value Reference Range Interpretation Comments UA Turbidity (test code = Clear (03/10/17 5:13 UA Turbidity) PM) [facility] AND [id number] 22:13:00 Test Item Value Reference Range Interpretation Comments UA Protein (test code = UA >=300 mg/dL Protein) [facility] [id number] 22:13:00 Test Item Value Reference Range Interpretation Comments UA pH (test code = UA pH) 6.0 5.0-8.0 [facility] AND [id number] 22:13:00 Test Item Value Reference Range Interpretation Comments UA Nitrite (test code Negative (03/10/17 5:13 = UA Nitrite) PM) [facility] AND [id number] 22:13:00 Test Item Value Reference Range Interpretation Comments UA Leuk Est (test code Trace *ABN*(03/10/17 = UA Leuk Est) 5:13 PM) [facility] AND [id number] 22:13:00 Test Item Value Reference Range Interpretation Comments UA Sq Epi (test code = UA Sq Occasional /LPF Epi) [facility] [id number] 22:13:00 Test Item Value Reference Range Interpretation Comments UA WBC (test code = 22 See_Comment [Automa cruz message] The UA WBC) system which ge nerated this result transmit cruz reference range : <=5. The reference range was not used to interpr et this result as gee l/abnormal. [facility]2014-02-28 09:12:00 Test Item Value Reference Range Interpretation Comments BUN (test code = BUN) 21 7-22 [facility]2014-02-28 09:12:00 Test Item Value Reference Range Interpretation Comments Creatinine Lvl (test code = Creatinine 2.3 0.5-1.4 Lvl) [facility]2014-02-28 09:12:00 Test Item Value Reference Range Interpretation Comments Glucose Lvl (test code = Glucose Lvl) 128 70-99 [facility]2014-02-28 09:12:00 Test Item Value Reference Range Interpretation Comments Chloride Lvl (test code = Chloride Lvl) 111 95-109 [facility]2014-02-28 09:12:00 Test Item Value Reference Range Interpretation Comments CO2 (test code = CO2) 25 24-32 [facility]2014-02-28 09:12:00 Test Item Value Reference Range Interpretation Comments AGAP (test code = AGAP) 10.8 10.0-20.0 [facility]2014-02-28 09:12:00 Test Item Value Reference Range Interpretation Comments Potassium Lvl (test code = Potassium 3.8 3.5-5.1 Lvl) [facility]2014-02-28 09:12:00 Test Item Value Reference Range Interpretation Comments Sodium Lvl (test code = Sodium Lvl) 143 135-145 [facility]2014-02-28 09:12:00 Test Item Value Reference Range Interpretation Comments Calcium Lvl (test code = Calcium Lvl) 8.4 8.5-10.5 [facility]2014-02-28 09:12:00 Test Item Value Reference Range Interpretation Comments eGFR (test code = eGFR) 32 [facility] [id number] 09:12:00 Test Item Value Reference Range Interpretation Comments Magnesium Lvl (test code = Magnesium 2.1 1.8-2.4 Lvl) [facility]IbytckxYFYJWVHRKL7525-67-06 09:12:00 Test Item Value Reference Range Interpretation Comments RBC X 10x6 (test code = RBC X 10x6) 4.66 4.70-6.10 [facility] CenterNhbpcecNUJYHIUMBT5761-04-93 09:12:00 Test Item Value Reference Range Interpretation Comments Hct (test code = Hct) 42.3 42.0-54.0 [facility] CenterPtdymofOQEILSZGYJ9315-80-88 09:12:00 Test Item Value Reference Range Interpretation Comments MCH (test code = MCH) 30.0 pg 27.0-31.0 [facility] CenterDozfdhsDQRJGEZACW8555-89-50 09:12:00 Test Item Value Reference Range Interpretation Comments MCV (test code = MCV) 90.8 80.0-94.0 [facility] CenterJkdmuuxQEELZWRALK8713-58-84 09:12:00 Test Item Value Reference Range Interpretation Comments Hgb (test code = Hgb) 14.0 14.0-18.0 [facility] CenterKjqzrzhXUBLXNDPZJ3556-85-40 09:12:00 Test Item Value Reference Range Interpretation Comments RDW (test code = RDW) 15.2 11.5-14.5 [facility] CenterQvpgbvhITAGLHKKEU1524-68-22 09:12:00 Test Item Value Reference Range Interpretation Comments MCHC (test code = MCHC) 33.0 32.0-36.0 [facility] CenterOwhgtvkSTGUXEAVEG1940-30-27 09:12:00 Test Item Value Reference Range Interpretation Comments MPV (test code = MPV) 9.5 7.4-10.4 [facility] CenterRcyhrqxSNEAIMIJLY8421-71-02 09:12:00 Test Item Value Reference Range Interpretation Comments Platelet (test code = Platelet) 231 133-450 [facility] CenterMmbzfffXRLQAXLKLT0655-57-49 09:12:00 Test Item Value Reference Range Interpretation Comments WBC X 10x3 (test code = WBC X 10x3) 11.8 3.7-10.4 [facility]2014-02-27 08:27:00 Test Item Value Reference Range Interpretation Comments Magnesium Lvl (test code = Magnesium 1.8 1.8-2.4 Lvl) [facility]2014-02-27 08:27:00 Test Item Value Reference Range Interpretation Comments eGFR (test code = eGFR) 38 [facility]2014-02-27 08:27:00 Test Item Value Reference Range Interpretation Comments AGAP (test code = AGAP) 11.6 10.0-20.0 [facility]2014-02-27 08:27:00 Test Item Value Reference Range Interpretation Comments Calcium Lvl (test code = Calcium Lvl) 8.5 8.5-10.5 [facility]2014-02-27 08:27:00 Test Item Value Reference Range Interpretation Comments Potassium Lvl (test code = Potassium 3.6 3.5-5.1 Lvl) [facility]2014-02-27 08:27:00 Test Item Value Reference Range Interpretation Comments Sodium Lvl (test code = Sodium Lvl) 142 135-145 [facility]2014-02-27 08:27:00 Test Item Value Reference Range Interpretation Comments Chloride Lvl (test code = Chloride Lvl) 111 95-109 [facility]2014-02-27 08:27:00 Test Item Value Reference Range Interpretation Comments CO2 (test code = CO2) 23 24-32 [facility]2014-02-27 08:27:00 Test Item Value Reference Range Interpretation Comments Creatinine Lvl (test code = Creatinine 2.0 0.5-1.4 Lvl) [facility]2014-02-27 08:27:00 Test Item Value Reference Range Interpretation Comments BUN (test code = BUN) 17 7-22 [facility]2014-02-27 08:27:00 Test Item Value Reference Range Interpretation Comments Glucose Lvl (test code = Glucose Lvl) 125 70-99 [facility] CenterEqmtcbuFZDZEOAZJA5387-98-40 08:27:00 Test Item Value Reference Range Interpretation Comments Hgb (test code = Hgb) 13.9 14.0-18.0 [place] 736704-02-27 08:27:00 Test Item Value Reference Range Interpretation Comments WBC X 10x3 (test code = WBC X 10x3) 12.2 3.7-10.4 [facility] CenterYecyckpVMJPNJQQPP0353-21-99 08:27:00 Test Item Value Reference Range Interpretation Comments Hct (test code = Hct) 41.8 42.0-54.0 [facility] CenterLdmecboUQQDSNARWZ6807-30-89 08:27:00 Test Item Value Reference Range Interpretation Comments MCV (test code = MCV) 90.7 80.0-94.0 [facility] CenterKwefmoeDUBLNTMICI0031-33-92 08:27:00 Test Item Value Reference Range Interpretation Comments MCH (test code = MCH) 30.2 pg 27.0-31.0 [facility] CenterOiiyaftZDAWPXRECQ1726-26-90 08:27:00 Test Item Value Reference Range Interpretation Comments MCHC (test code = MCHC) 33.3 32.0-36.0 [facility] CenterAjmcefnHSOYEIFENO5877-40-43 08:27:00 Test Item Value Reference Range Interpretation Comments RBC X 10x6 (test code = RBC X 10x6) 4.61 4.70-6.10 [facility] CenterStdpfaqDKZQLLDBMF5490-75-24 08:27:00 Test Item Value Reference Range Interpretation Comments Platelet (test code = Platelet) 209 133-450 [facility] CenterNnlpxufHGZDMGADVJ3824-67-06 08:27:00 Test Item Value Reference Range Interpretation Comments RDW (test code = RDW) 15.4 11.5-14.5 [facility] CenterTovjfcrFVDMYCEEFJ0568-59-21 08:27:00 Test Item Value Reference Range Interpretation Comments MPV (test code = MPV) 9.7 7.4-10.4 [facility]2014-02-26 18:49:00 Test Item Value Reference Range Interpretation Comments Calcium Lvl (test code = Calcium Lvl) 8.2 8.5-10.5 [facility]2014-02-26 18:49:00 Test Item Value Reference Range Interpretation Comments AGAP (test code = AGAP) 11.9 10.0-20.0 [facility]2014-02-26 18:49:00 Test Item Value Reference Range Interpretation Comments CO2 (test code = CO2) 23 24-32 [facility]2014-02-26 18:49:00 Test Item Value Reference Range Interpretation Comments eGFR (test code = eGFR) 41 [facility]2014-02-26 18:49:00 Test Item Value Reference Range Interpretation Comments Glucose Lvl (test code = Glucose Lvl) 129 70-99 [facility]2014-02-26 18:49:00 Test Item Value Reference Range Interpretation Comments BUN (test code = BUN) 17 7-22 [facility]2014-02-26 18:49:00 Test Item Value Reference Range Interpretation Comments Creatinine Lvl (test code = Creatinine 1.9 0.5-1.4 Lvl) [facility]2014-02-26 18:49:00 Test Item Value Reference Range Interpretation Comments Potassium Lvl (test code = Potassium 3.9 3.5-5.1 Lvl) [facility]2014-02-26 18:49:00 Test Item Value Reference Range Interpretation Comments Sodium Lvl (test code = Sodium Lvl) 142 135-145 [facility]2014-02-26 18:49:00 Test Item Value Reference Range Interpretation Comments Chloride Lvl (test code = Chloride Lvl) 111 95-109 [facility] HospitalSimdwtxXRZXDW8007-68-04 18:49:00 Test Item Value Reference Range Interpretation Comments VLDL (test code = VLDL) 25 [facility] HospitalMseujriIMNUEV4072-30-88 18:49:00 Test Item Value Reference Range Interpretation Comments LDL (Calculated) (test code = LDL 98 (Calculated)) [facility] 18:49:00 Test Item Value Reference Range Interpretation Comments HDL (test code = HDL) 54 [facility] HospitalUbvjdaeFORRDF9232-11-99 18:49:00 Test Item Value Reference Range Interpretation Comments Chol (test code = Chol) 177 [facility] HospitalVyyjsnjZPOQQZ0405-53-39 18:49:00 Test Item Value Reference Range Interpretation Comments Trig (test code = Trig) 126 [facility] HospitalZsnvzdbPQTFSK1279-38-67 18:49:00 Test Item Value Reference Range Interpretation Comments CHD Risk (test code = CHD Risk) 3.28 4.00-7.30 [facility] AND [id number] 10:05:14 Test Item Value Reference Range Interpretation Comments UA Leuk Est (test Negative (11/24/2013 code = UA Leuk Est) 04:05:14 [facility]) [facility] AND [id number] 10:05:14 Test Item Value Reference Range Interpretation Comments UA Nitrite (test code Negative (11/24/2013 = UA Nitrite) 04:05:14 [facility]/[place]) [facility] AND [id number] 10:05:14 Test Item Value Reference Range Interpretation Comments UA Blood (test code = Small *ABN*(11/24/2013 UA Blood) 04:05:14 [facility]) [facility] AND [id number] 10:05:14 Test Item Value Reference Range Interpretation Comments UA Ketones (test code = UA Negative mg/dL Ketones) [facility] AND [id number] 10:05:14 Test Item Value Reference Range Interpretation Comments UA Glucose (test code = UA Glucose) 30 mg/dL [facility] AND [id number] 10:05:14 Test Item Value Reference Range Interpretation Comments UA Bili (test code = Negative *NA*(11/24/2013 UA Bili) 04:05:14 [facility]) [facility] AND [id number] 10:05:14 Test Item Value Reference Range Interpretation Comments Micro? (test code = Performed *NA*(11/24/2013 Micro?) 04:05:14 [facility]/[place]) [facility] AND [id number] 10:05:14 Test Item Value Reference Range Interpretation Comments UA Mucus (test code = UA Mucus) Few /LPF [facility] AND [id number] 10:05:14 Test Item Value Reference Range Interpretation Comments UA RBC (test code = 1 See_Comment [Automa cruz message] The UA RBC) system which ge nerated this result transmit cruz reference range : <=2. The reference range was not used to interpr et this result as gee l/abnormal. [facility] AND [id number] 10:05:14 Test Item Value Reference Range Interpretation Comments UA Urobilinogen (test code = UA <=1.0 mg/dL 0.1-1.0 Urobilinogen) [facility] AND [id number] 10:05:14 Test Item Value Reference Range Interpretation Comments UA Turbidity (test code = Clear (11/24/2013 UA Turbidity) 04:05:14 [facility]/[place]) [facility] AND [id number] 10:05:14 Test Item Value Reference Range Interpretation Comments UA Protein (test code = UA >=300 mg/dL Protein) [facility] AND [id number] 10:05:14 Test Item Value Reference Range Interpretation Comments UA pH (test code = UA pH) 6.5 5.0-8.0 [facility] AND [id number] 10:05:14 Test Item Value Reference Range Interpretation Comments UA Spec Grav (test code = UA Spec Grav) 1.010 [facility] AND [id number] 10:05:14 Test Item Value Reference Range Interpretation Comments UA Color (test code = Light Yellow UA Color) *NA*(11/24/2013 04:05:14 [facility] AND [id number] 10:05:14 Test Item Value Reference Range Interpretation Comments UA WBC (test code = 2 See_Comment [Automa cruz message] The UA WBC) system which ge nerated this result transmit cruz reference range : <=5. The reference range was not used to interpr et this result as gee l/abnormal. [facility] AND [id number] 10:05:14 Test Item Value Reference Range Interpretation Comments UA Sq Epi (test code = UA Sq Occasional /LPF Epi) [facility]2014-02-25 09:17:00 Test Item Value Reference Range Interpretation Comments Magnesium Lvl (test code = Magnesium 2.0 1.8-2.4 Lvl) [facility]2014-02-25 09:17:00 Test Item Value Reference Range Interpretation Comments Phosphorus (test code = Phosphorus) 2.5 2.5-4.5 [facility]2014-02-25 09:17:00 Test Item Value Reference Range Interpretation Comments Total Protein (test code = Total 7.3 6.4-8.4 Protein) [facility]2014-02-25 09:17:00 Test Item Value Reference Range Interpretation Comments Albumin Lvl (test code = Albumin Lvl) 2.7 3.5-5.0 [facility]2014-02-25 09:17:00 Test Item Value Reference Range Interpretation Comments ASPARTATE TRANSAMINASE 21 See_Comment [Aut omated message] (test code = ASPARTATE The s ystem which TRANSAMINASE) generated this result transmitted ref erence range: <=37. Th e reference range was not used to interpr et this result as normal/abnormal . [facility]2014-02-25 09:17:00 Test Item Value Reference Range Interpretation Comments Bili Total (test code = Bili Total) 0.6 0.2-1.3 [place] [id number] 09:17:00 Test Item Value Reference Range Interpretation Comments Alk Phos (test code = Alk Phos) 108 39-136 [place] 145544-02-25 09:17:00 Test Item Value Reference Range Interpretation Comments ALANINE AMINOTRANSFERASE 20 See_Comment [A utomated message] (test code = ALANINE The sys tem which AMINOTRANSFERASE) generated this result transmitted ref erence range: <=65. Th e reference range was not used to int erpret this result as normal/abnormal . [place] 145544-02-25 09:17:00 Test Item Value Reference Range Interpretation Comments A/G Ratio (test code = A/G Ratio) 0.6 0.7-1.6 [place] 145544-02-25 09:17:00 Test Item Value Reference Range Interpretation Comments Globulin (test code = Globulin) 4.6 2.0-4.0 [place] 145544-02-25 09:17:00 Test Item Value Reference Range Interpretation Comments B/C Ratio (test code = B/C Ratio) 11 6-25 [facility]ev[facility]hhQXHQXTHAFW2259[facility]30-[facility] 09:17:00 Test Item Value Reference Range Interpretation Comments Basophils # (test code 0.0 See_Comment [Aut omated message] The = Basophils #) system which generated this result tra nsmitted reference range : <=0.2. The reference r jillian was not used to int erpret this result as normal/abnormal . [facility] CenterUlqwlnhMLNLGNYGAX3439-17-97 09:17:00 Test Item Value Reference Range Interpretation Comments Eosinophils # (test code 0.0 See_Comment [A utomated message] The = Eosinophils #) system whic h generated this result tra nsmitted reference range : <=0.5. The reference r jillian was not used to int erpret this result as normal/abnormal . [facility] Cent[id number] 09:17:00 Test Item Value Reference Range Interpretation Comments Monocytes # (test code 0.4 See_Comment [Aut omated message] The = Monocytes #) system which generated this result tra nsmitted reference range : <=0.8. The reference r jillian was not used to int erpret this result as normal/abnormal . [facility] CenterEfovbgqJNFPOLUGXR7322-95-87 09:17:00 Test Item Value Reference Range Interpretation Comments Lymphocytes (test code = Lymphocytes) 15.7 20.0-40.0 [facility] CenterBstjuciUDPRAMYEBF2165-26-25 09:17:00 Test Item Value Reference Range Interpretation Comments Plt Morph (test code = Normal (11/23/2013 Plt Morph) 03:17:00 [facility] CenterGnfleygOIYZCMHGSW6095-18-04 09:17:00 Test Item Value Reference Range Interpretation Comments Segs (test code = Segs) 76.6 45.0-75.0 [facility] CenterVtcbthwYAVPFYQMXW5358-00-37 09:17:00 Test Item Value Reference Range Interpretation Comments Lymphocytes # (test code = Lymphocytes 1.0 1.0-5.5 #) [facility] CenterIklwmvfZYJRIVKPFR6171-81-40 09:17:00 Test Item Value Reference Range Interpretation Comments Basophils (test code = 0.2 See_Comment [Aut omated message] The Basophils) system which ge nerated this result tra nsmitted reference range : <=1.0. The reference r jillian was not used to int erpret this result as normal/abnormal . [facility] CenterHvfstfjHGOZJTLCOD0724-28-76 09:17:00 Test Item Value Reference Range Interpretation Comments Segs-Bands # (test code = Segs-Bands #) 4.7 1.5-8.1 [facility] CenterVlgnjmzZZXCMRDBRW7399-05-50 09:17:00 Test Item Value Reference Range Interpretation Comments RBC Morph (test code = Normal (11/23/2013 RBC Morph) 03:17:00 [facility] CenterUfdocswYFVWYWNWWQ5630-84-19 09:17:00 Test Item Value Reference Range Interpretation Comments Eosinophils (test code = 0.7 See_Comment [A utomated message] The Eosinophils) system which ge nerated this result tra nsmitted reference range : <=4.0. The reference r jillian was not used to int erpret this result as normal/abnormal . [facility] CenterFclrrgkUCPURDXHJX0079-72-09 09:17:00 Test Item Value Reference Range Interpretation Comments Monocytes (test code = Monocytes) 6.8 2.0-12.0 [facility] CenterUjgnlhcCIESKKIFYE3223-68-39 09:17:00 Test Item Value Reference Range Interpretation Comments PROTIME (test code = PROTIME) 13.4 s 12.0-14.7 [facility] CenterOywzzzzAFEVHNQPWJ9361-84-90 09:17:00 Test Item Value Reference Range Interpretation Comments INR (test code = INR) 1.03 0.85-1.17 [facility] CenterJlnvnhoSLJBUVCBPZ9073-26-93 09:17:00 Test Item Value Reference Range Interpretation Comments MPV (test code = MPV) 9.9 7.4-10.4 [facility] CenterQiozzlbZUXPYCHYAX7066-28-63 09:17:00 Test Item Value Reference Range Interpretation Comments Platelet (test code = Platelet) 221 133-450 [facility] CenterIuabjgcVDVROMKFMT2413-92-24 09:17:00 Test Item Value Reference Range Interpretation Comments MCHC (test code = MCHC) 32.7 32.0-36.0 [facility] CenterTlmmbjwJDCDRTWGPF3104-39-43 09:17:00 Test Item Value Reference Range Interpretation Comments MCH (test code = MCH) 30.0 pg 27.0-31.0 [facility] CenterUipgjraCIXKDNAGLT5830-95-56 09:17:00 Test Item Value Reference Range Interpretation Comments RDW (test code = RDW) 14.7 11.5-14.5 [facility] CenterIpjiwqjMUSGNNNKGQ7163-76-20 09:17:00 Test Item Value Reference Range Interpretation Comments WBC X 10x3 (test code = WBC X 10x3) 6.1 3.7-10.4 [facility] CenterSllumjhKVDHSAZJRU8891-00-74 09:17:00 Test Item Value Reference Range Interpretation Comments RBC X 10x6 (test code = RBC X 10x6) 4.88 4.70-6.10 [facility] CenterMmtbebdSUEWZSFXEU8076-72-22 09:17:00 Test Item Value Reference Range Interpretation Comments Hgb (test code = Hgb) 14.6 14.0-18.0 [facility] CenterZjqyxcnXKTLZBGPJI7532-24-90 09:17:00 Test Item Value Reference Range Interpretation Comments MCV (test code = MCV) 91.6 80.0-94.0 [facility] CenterQgdjrjuLFWVYHELIA6747-72-88 09:17:00 Test Item Value Reference Range Interpretation Comments Hct (test code = Hct) 44.6 42.0-54.0 [facility] [id number] 04:30:00 Test Item Value Reference Range Interpretation Comments Total CK (test code = Total CK) 155 12-191 [facility] [id number] 04:30:00 Test Item Value Reference Range Interpretation Comments CK MB (test code = CK MB) 0.9 0.5-3.6 [facility] [id number] 04:30:00 Test Item Value Reference Range Interpretation Comments Troponin-I (test code no gt See_Comment [Auto mated message] The = Troponin-I) system which g enerated this result transmit cruz reference range : <=0.40. The reference r jillian was not used to interpr et this result as gee l/abnormal. [facility] LabsannCARNicholas Haddox RecordsAC [id number] 22:30:00 Test Item Value Reference Range Interpretation Comments Total CK (test code = Total CK) 142 12-191 [facility] LabsannCARNicholas Haddox RecordsAC [id number] 22:30:00 Test Item Value Reference Range Interpretation Comments CK MB (test code = CK MB) 0.8 0.5-3.6 [facility] [id number] 22:30:00 Test Item Value Reference Range Interpretation Comments Troponin-I (test code no gt See_Comment [Auto mated message] The = Troponin-I) system which g enerated this result transmit cruz reference range : <=0.40. The reference r jillian was not used to interpr et this result as gee l/abnormal. [facility] [id number] 22:00:00 Test Item Value Reference Range Interpretation Comments U Amph Scr (test code Negative *NA*(11/22/2013 = U Amph Scr) 16:00:00 [facility] [id number] 22:00:00 Test Item Value Reference Range Interpretation Comments U Cocaine Scr (test Positive code = U Cocaine Scr) *ABN*(11/22/2013 16:00:00 [facility]) [facility] [id number] 22:00:00 Test Item Value Reference Range Interpretation Comments U Opiate Scr (test Negative code = U Opiate Scr) *NA*(11/22/2013 16:00:00 [facility]) [facility] [id number] 22:00:00 Test Item Value Reference Range Interpretation Comments U Cannab Scr (test Negative code = U Cannab Scr) *NA*(11/22/2013 16:00:00 [facility] [id number] 22:00:00 Test Item Value Reference Range Interpretation Comments U Benzodia Scr (test Negative code = U Benzodia Scr) *NA*(11/22/2013 16:00:00 [facility]) [facility] [id number] 22:00:00 Test Item Value Reference Range Interpretation Comments U Romy Scr (test code Negative *NA*(11/22/2013 = U Romy Scr) 16:00:00 [facility]) [facility] [id number] 22:00:00 Test Item Value Reference Range Interpretation Comments UDS Note (test code = See Note 8(11/22/2013 UDS Note) 16:00:00 [facility]) [facility] [id number] 22:00:00 Test Item Value Reference Range Interpretation Comments U Phencyc Scr (test Negative code = U Phencyc Scr) *NA*(11/22/2013 16:00:00 [facility] [id number] 22:00:00 Test Item Value Reference Range Interpretation Comments UA Urobilinogen (test code = UA <=1.0 mg/dL 0.1-1.0 Urobilinogen) [facility] [id number] 22:00:00 Test Item Value Reference Range Interpretation Comments UA Sq Epi (test code = UA Sq Epi) None Seen [facility] [id number] 22:00:00 Test Item Value Reference Range Interpretation Comments UA Bili (test code = Negative *NA*(11/22/2013 UA Bili) 16:00:00 [facility] [id number] 22:00:00 Test Item Value Reference Range Interpretation Comments UA Blood (test code = Small *ABN*(11/22/2013 UA Blood) 16:00:00 [facility] [id number] 22:00:00 Test Item Value Reference Range Interpretation Comments UA Nitrite (test code Negative (11/22/2013 = UA Nitrite) 16:00:00 [facility]) [facility] AND [id number] 22:00:00 Test Item Value Reference Range Interpretation Comments UA WBC (test code = 1 See_Comment [Automa cruz message] The UA WBC) system which ge nerated this result transmit cruz reference range : <=5. The reference range was not used to interpr et this result as gee l/abnormal. [facility] AND [id number] 22:00:00 Test Item Value Reference Range Interpretation Comments UA Leuk Est (test Negative (11/22/2013 code = UA Leuk Est) 16:00:00 [facility]) [facility] AND [id number] 22:00:00 Test Item Value Reference Range Interpretation Comments UA RBC (test code = 1 See_Comment [Automa cruz message] The UA RBC) system which ge nerated this result transmit cruz reference range : <=2. The reference range was not used to interpr et this result as gee l/abnormal. [facility] AND [id number] 22:00:00 Test Item Value Reference Range Interpretation Comments UA Mucus (test code = UA Mucus) Few /LPF [facility] AND [id number] 22:00:00 Test Item Value Reference Range Interpretation Comments UA Bacteria (test code = UA Occasional /HPF Bacteria) [facility] AND [id number] 22:00:00 Test Item Value Reference Range Interpretation Comments UA Turbidity (test code = Clear (11/22/2013 UA Turbidity) 16:00:00 [facility]) [facility] AND [id number] 22:00:00 Test Item Value Reference Range Interpretation Comments UA Color (test code = Light Yellow UA Color) *NA*(11/22/2013 16:00:00 [facility]) [facility] AND [id number] 22:00:00 Test Item Value Reference Range Interpretation Comments UA Spec Grav (test code = UA Spec Grav) 1.009 [facility] AND [id number] 22:00:00 Test Item Value Reference Range Interpretation Comments UA Glucose (test code = UA Glucose) 70 mg/dL [facility] AND [id number] 22:00:00 Test Item Value Reference Range Interpretation Comments UA Protein (test code = UA >=300 mg/dL Protein) [facility] AND [id number] 22:00:00 Test Item Value Reference Range Interpretation Comments UA pH (test code = UA pH) 6.0 5.0-8.0 [facility] AND [id number] 22:00:00 Test Item Value Reference Range Interpretation Comments UA Ketones (test code = UA Negative mg/dL Ketones) [facility] [id number] 18:46:00 Test Item Value Reference Range Interpretation Comments Total CK (test code = Total CK) 85 12-191 [facility] [id number] 18:46:00 Test Item Value Reference Range Interpretation Comments CK MB (test code = CK MB) no gt 0.5-3.6 [facility] [id number] 18:46:00 Test Item Value Reference Range Interpretation Comments Troponin-I (test code no gt See_Comment [Auto mated message] The = Troponin-I) system which g enerated this result transmit cruz reference range : <=0.40. The reference r jillian was not used to interpr et this result as gee l/abnormal. [facility] [id number] 18:46:00 Test Item Value Reference Range Interpretation Comments CK-MB INDEX (test no gt See_Comment [Automate d message] The code = CK-MB INDEX) system w [facility] generated this result transmit cruz reference range : <=2.5. The reference range was not used to interpr et this result as gee l/abnormal. [facility]IrtzkunQOEQQHPHIG4182-88-62 18:46:00 Test Item Value Reference Range Interpretation Comments PROTIME (test code = PROTIME) 12.9 s 12.0-14.7 [facility] CenterVeidtfuJGQDZBGWVT0523-98-24 18:46:00 Test Item Value Reference Range Interpretation Comments INR (test code = INR) 0.98 0.85-1.17 [facility] C[id number] 18:46:00 Test Item Value Reference Range Interpretation Comments aPTT (test code = aPTT) 28.6 s 22.9-35.8 [facility] CenterOlkuvshNQTYBOGUQU0534-16-68 18:46:00 Test Item Value Reference Range Interpretation Comments Eosinophils # (test code 0.1 See_Comment [A utomated message] The = Eosinophils #) system whic h generated this result tra nsmitted reference range : <=0.5. The reference r jillian was not used to int erpret this result as normal/abnormal . [facility] [id number] 18:46:00 Test Item Value Reference Range Interpretation Comments Monocytes # (test code 0.7 See_Comment [Aut omated message] The = Monocytes #) system which generated this result tra nsmitted reference range : <=0.8. The reference r jillian was not used to int erpret this result as normal/abnormal . [facility] CenterPtavcjmIZINWQFHEW2851-59-97 18:46:00 Test Item Value Reference Range Interpretation Comments Eosinophils (test code = 1.3 See_Comment [A utomated message] The Eosinophils) system which ge nerated this result tra nsmitted reference range : <=4.0. The reference r jillian was not used to int erpret this result as normal/abnormal . [facility] CenterAzmurncFHTNAUQIRM9504-00-45 18:46:00 Test Item Value Reference Range Interpretation Comments Monocytes (test code = Monocytes) 7.6 2.0-12.0 [facility] C[id number] 18:46:00 Test Item Value Reference Range Interpretation Comments Lymphocytes (test code = Lymphocytes) 25.0 20.0-40.0 [facility] CenterFxrdyijPNXPOVRFHP8643-58-79 18:46:00 Test Item Value Reference Range Interpretation Comments Basophils (test code = 0.4 See_Comment [Aut omated message] The Basophils) system which ge nerated this result tra nsmitted reference range : <=1.0. The reference r jillian was not used to int erpret this result as normal/abnormal . [facility] CenterSqrvjvzVLBOYXGPBY9169-15-27 18:46:00 Test Item Value Reference Range Interpretation Comments Lymphocytes # (test code = Lymphocytes 2.3 1.0-5.5 #) [facility] CenterMuvovaoUWQZDVJZYP2552-24-10 18:46:00 Test Item Value Reference Range Interpretation Comments Segs-Bands # (test code = Segs-Bands #) 6.2 1.5-8.1 [facility] CenterSmmlsrqEOBDRXRMLT4445-03-97 18:46:00 Test Item Value Reference Range Interpretation Comments Segs (test code = Segs) 65.7 45.0-75.0 [facility] HospitalYajksttJESUGNLIK9137-55-10 12:00:00 Test Item Value Reference Range Interpretation Comments Calcium Lvl (test code = Calcium Lvl) 7.7 8.5-10.5 L [facility] HospitalFfvbckfBLCRKRLFR7435-71-25 12:00:00 Test Item Value Reference Range Interpretation Comments Potassium Lvl (test code = Potassium 4.0 3.5-5.1 N Lvl) [facility] HospitalLaiwrvsMEENCHKIJ1476-43-06 12:00:00 Test Item Value Reference Range Interpretation Comments Sodium Lvl (test code = Sodium Lvl) 140 135-145 N [facility] HospitalSoahvwiLHBDLACGZ2282-75-05 12:00:00 Test Item Value Reference Range Interpretation Comments CO2 (test code = CO2) 23 24-32 L [facility] HospitalWakcwyxPKNKNNGIV4422-29-13 12:00:00 Test Item Value Reference Range Interpretation Comments Chloride Lvl (test code = Chloride Lvl) 102 95-109 N [facility] HospitalZzoekzaGZLKJAPLH4006-36-75 12:00:00 Test Item Value Reference Range Interpretation Comments AGAP (test code = AGAP) 19.0 10.0-20.0 N [facility] Hospi[id number] 12:00:00 Test Item Value Reference Range Interpretation Comments Glucose Lvl (test code = Glucose Lvl) 124 70-99 H [facility] HospitalSjoyesoLQKLHUOHC1366-87-14 12:00:00 Test Item Value Reference Range Interpretation Comments BUN (test code = BUN) 25 7-22 H [facility] HospitalAsqpgyaJXZJQCAAY2679-50-91 12:00:00 Test Item Value Reference Range Interpretation Comments Creatinine Lvl (test code = Creatinine 2.2 0.5-1.4 H Lvl) [facility] HospitalDjivbekEOKDIUKFN1092-55-60 22:17:00 Test Item Value Reference Range Interpretation Comments Calcium Lvl (test code = Calcium Lvl) 7.9 8.5-10.5 L [facility] HospitalPuaklzuUWJWMLITW3375-46-03 22:17:00 Test Item Value Reference Range Interpretation Comments AGAP (test code = AGAP) 18.5 10.0-20.0 N [facility] HospitalGrvbhriOCIOEDEZR6561-37-40 22:17:00 Test Item Value Reference Range Interpretation Comments CO2 (test code = CO2) 21 24-32 L [facility] HospitalBztwcnnCRHYQEKVN7562-22-07 22:17:00 Test Item Value Reference Range Interpretation Comments Glucose Lvl (test code = Glucose Lvl) 77 70-99 N [facility] HospitalIcaulidZTHZFJRRH7786-93-36 22:17:00 Test Item Value Reference Range Interpretation Comments BUN (test code = BUN) 24 7-22 H [facility] HospitalXwbxiqdTAUXAJCBO2646-40-49 22:17:00 Test Item Value Reference Range Interpretation Comments Creatinine Lvl (test code = Creatinine 1.8 0.5-1.4 H Lvl) [facility] HospitalOworyayDUIRYCIBT9286-89-80 22:17:00 Test Item Value Reference Range Interpretation Comments Sodium Lvl (test code = Sodium Lvl) 140 135-145 N [facility] HospitalMmotukgZAQIOXZGX5041-64-37 22:17:00 Test Item Value Reference Range Interpretation Comments Potassium Lvl (test code = Potassium 4.5 3.5-5.1 N Lvl) [facility] HospitalMvtzucpMPENPVKGR1986-78-30 22:17:00 Test Item Value Reference Range Interpretation Comments Chloride Lvl (test code = Chloride Lvl) 105 95-109 N [facility] HospitalRdbfdanXOCODCUYS4438-19-32 19:20:00 Test Item Value Reference Range Interpretation Comments Creatinine Lvl (test code = Creatinine 1.8 0.5-1.4 H Lvl) [facility] HospitalOjeufqsSVCJHANOR1824-26-85 19:20:00 Test Item Value Reference Range Interpretation Comments Potassium Lvl (test code = Potassium 4.0 3.5-5.1 N Lvl) [facility] HospitalFukdyvbTKXPPYCYZ3372-14-64 19:20:00 Test Item Value Reference Range Interpretation Comments Sodium Lvl (test code = Sodium Lvl) 137 135-145 N [facility] HospitalWzhnkkxZGJXKKSEB9345-47-44 19:20:00 Test Item Value Reference Range Interpretation Comments BUN (test code = BUN) 25 7-22 H [facility] HospitalNbprarwYLDQZPYKQ1414-05-91 19:20:00 Test Item Value Reference Range Interpretation Comments Calcium Lvl (test code = Calcium Lvl) 8.7 8.5-10.5 N [facility] HospitalFozqfloFGGMUJZHK6296-85-55 19:20:00 Test Item Value Reference Range Interpretation Comments CO2 (test code = CO2) 21 24-32 L [facility]RwybnbtSSVEZGIMN8648-37-13 19:20:00 Test Item Value Reference Range Interpretation Comments Chloride Lvl (test code = Chloride Lvl) 104 95-109 N [facility] HospitalKapgufvJPAFEBDLE3002-64-34 19:20:00 Test Item Value Reference Range Interpretation Comments AGAP (test code = AGAP) 16.0 10.0-20.0 N [facility] HospitalQmqegjqNAVPPURFC3869-60-47 19:20:00 Test Item Value Reference Range Interpretation Comments Glucose Lvl (test code = Glucose Lvl) 86 70-99 N [facility] HospitalTpsorxfLBAHKJVFK1585-85-57 18:40:00 Test Item Value Reference Range Interpretation Comments ALT (test code = ALT) 34 See_Comment N [Auto mated message] The system which ge nerated this result transmit cruz reference range : <=65. The reference range was not used to interpr et this result as gee l/abnormal. [facility] HospitalSspasvrXUMUBRDIV5599-62-67 18:40:00 Test Item Value Reference Range Interpretation Comments Alk Phos (test code = Alk Phos) 97 39-136 N [facility] HospitalMzhatrjBVFWVKIPI7588-96-05 18:40:00 Test Item Value Reference Range Interpretation Comments Total Protein (test code = Total 8.6 6.4-8.4 H Protein) [facility] HospitalKvuknovRVCTBVPAX6626-40-90 18:40:00 Test Item Value Reference Range Interpretation Comments Albumin Lvl (test code = Albumin Lvl) 3.3 3.5-5.0 L [facility]LszrvdbYLHKMKQMYP3878-62-66 18:40:00 Test Item Value Reference Range Interpretation Comments MCV (test code = MCV) 95.9 80.0-94.0 H [facility] CenterTbxffnnPTFOVEUTDW8451-82-97 18:40:00 Test Item Value Reference Range Interpretation Comments Hgb (test code = Hgb) 16.3 14.0-18.0 N [facility] CenterCmkbopnTMPXCIXVFS9604-10-32 18:40:00 Test Item Value Reference Range Interpretation Comments Hct (test code = Hct) 48.3 42.0-54.0 N [facility] CenterFqlebeyHNJZZMCZVI0010-90-92 18:40:00 Test Item Value Reference Range Interpretation Comments RBC (test code = RBC) 5.03 4.70-6.10 N [facility] CenterYmfzdvnGEGXQAWFTE7656-43-84 18:40:00 Test Item Value Reference Range Interpretation Comments WBC (test code = WBC) 12.3 3.7-10.4 H [facility] CenterWqtjmtbNAISYXRMAI5552-53-85 18:40:00 Test Item Value Reference Range Interpretation Comments MCH (test code = MCH) 32.5 pg 27.0-31.0 H [facility] CenterLwncdpzWPXJLTNZOQ8401-10-06 18:40:00 Test Item Value Reference Range Interpretation Comments Platelet (test code = Platelet) 160 133-450 N [facility] CenterDteljdzFEPAIZDIPM7626-22-64 18:40:00 Test Item Value Reference Range Interpretation Comments RDW (test code = RDW) 12.9 11.5-14.5 N [facility] CenterAnmymvuDJGTLEUKVX6476-24-72 18:40:00 Test Item Value Reference Range Interpretation Comments MPV (test code = MPV) 9.4 7.4-10.4 N [facility] CenterWucmhfhBYDCGNWVJM4548-73-73 18:40:00 Test Item Value Reference Range Interpretation Comments MCHC (test code = MCHC) 33.8 32.0-36.0 N [facility] CenterIyjxhryHTTPTXHTAH3992-45-79 18:40:00 Test Item Value Reference Range Interpretation Comments Monocytes # (test code 0.6 See_Comment N [Aut omated message] The = Monocytes #) system which generated this result tra nsmitted reference range : <=0.8. The reference r jillian was not used to int erpret this result as normal/abnormal . [facility] CenterBspywevKNTLNBRPCQ7807-53-50 18:40:00 Test Item Value Reference Range Interpretation Comments Macrocyte (test code = 1+ *ABN*(01/08/2012 A Macrocyte) 13:40:00) [facility] CenterSsjqtcrATSISHUMVS7599-26-38 18:40:00 Test Item Value Reference Range Interpretation Comments Eosinophils # (test code 0.0 See_Comment N [A utomated message] The = Eosinophils #) system whic h generated this result tra nsmitted reference range : <=0.5. The reference r jillian was not used to int erpret this result as normal/abnormal . [facility] CenterBjnrzdrVBNJGZZRUN5475-95-08 18:40:00 Test Item Value Reference Range Interpretation Comments Lymphocytes # (test code = Lymphocytes 1.5 1.0-5.5 N #) [place] 736702-04-11 18:40:00 Test Item Value Reference Range Interpretation Comments Segs-Bands # (test code = Segs-Bands #) 10.1 1.5-8.1 H [facility] CenterMufwmdqEVHDHBMLYR0150-74-99 18:40:00 Test Item Value Reference Range Interpretation Comments Eosinophils (test code = 0.2 See_Comment N [A utomated message] The Eosinophils) system which ge nerated this result tra nsmitted reference range : <=4.0. The reference r jillian was not used to int erpret this result as normal/abnormal . [facility] CenterXomyfqzXQWGSYUYJX0113-28-18 18:40:00 Test Item Value Reference Range Interpretation Comments Basophils (test code = 0.3 See_Comment N [Aut omated message] The Basophils) system which ge nerated this result tra nsmitted reference range : <=1.0. The reference r jillian was not used to int erpret this result as normal/abnormal . [facility] CenterXvwdhxtTXVFNXTBKP7860-66-91 18:40:00 Test Item Value Reference Range Interpretation Comments Segs (test code = Segs) 82.4 45.0-75.0 H [facility] CenterGhienplATHNIFFVHF0931-02-95 18:40:00 Test Item Value Reference Range Interpretation Comments Monocytes (test code = Monocytes) 4.6 2.0-12.0 N [facility] CenterHbwozssXSFPBVWCJG5752-63-78 18:40:00 Test Item Value Reference Range Interpretation Comments Lymphocytes (test code = Lymphocytes) 12.5 20.0-40.0 L [facility] CenterUrrqxokUMDSLVQZCN1370-55-36 18:40:00 Test Item Value Reference Range Interpretation Comments Plt Morph (test code = Normal (01/08/2012 N Plt Morph) 13:40:00) [facility] CenterPonsfnvXOWHPPIACJ1928-02-48 18:40:00 Test Item Value Reference Range Interpretation Comments RBC Morph (test code = Normal (01/08/2012 N RBC Morph) 13:40:00) [facility]BuznnbiEYRBGTVHKX2298-18-24 18:40:00 Test Item Value Reference Range Interpretation Comments CRP, High Sensitivity (test code = CRP, 79.6 High Sensitivity) [facility] HospitalHzwuewyQNVJMNXBT8117-41-54 18:40:00 Test Item Value Reference Range Interpretation Comments Uric Acid (test code = Uric Acid) 8.3 3.8-8.0 H [facility] HospitalXxxegveYUVCCVOUR4066-73-77 18:40:00 Test Item Value Reference Range Interpretation Comments B/C Ratio (test code = B/C Ratio) 14 6-25 N [facility] HospitalOmxodqcRQPUOQTGM8152-19-22 18:40:00 Test Item Value Reference Range Interpretation Comments Globulin (test code = Globulin) 5.3 2.0-4.0 H [facility] HospitalLkjxssoFSVLHLHQW9446-91-99 18:40:00 Test Item Value Reference Range Interpretation Comments A/G Ratio (test code = A/G Ratio) 0.6 0.7-1.6 L [facility] HospitalIhgxymuCSPUYVERF9760-99-01 18:40:00 Test Item Value Reference Range Interpretation Comments AST (test code = AST) 18 See_Comment N [Auto mated message] The system which ge nerated this result transmit cruz reference range : <=37. The reference range was not used to interpr et this result as gee l/abnormal. [facility] HospitalVjodyvoYBAEZACKE0418-04-39 18:40:00 Test Item Value Reference Range Interpretation Comments Bili Total (test code = Bili Total) 0.6 0.2-1.3 N [facility]PfkfrsbBlxnvggxjpsf9029-30-73 18:32:00 Test Item Value Reference Range Interpretation Comments Culture: Blood (test code = Culture: Blood) [facility]DdmiyguMghubwocwfma2081-54-33 18:25:00 Test Item Value Reference Range Interpretation Comments Culture: Blood (test code = Culture: Blood) [facility]XgljqzdHDNZZUVYBQ0206-05-50 17:30:00 Test Item Value Reference Range Interpretation Comments UA Urobilinogen (test code *NA*(01/08/2012 0.1-1.0 = UA Urobilinogen) 12:30:00) [facility] CenterQmbccmqFRAARTHDJM6313-98-43 17:30:00 Test Item Value Reference Range Interpretation Comments UA WBC (test code = 1 See_Comment N [Automa cruz message] The UA WBC) system which ge nerated this result transmit cruz reference range : <=5. The reference range was not used to interpr et this result as gee l/abnormal. [facility]EfunafdUPEBDXRILQ8260-02-66 17:30:00 Test Item Value Reference Range Interpretation Comments UA RBC (test code = no gt See_Comment N [Automa cruz message] The UA RBC) system which ge nerated this result transmit cruz reference range : <=2. The reference range was not used to interpr et this result as gee l/abnormal. [facility] CenterZmqexvbRNNXCGVZUL8583-30-42 17:30:00 Test Item Value Reference Range Interpretation Comments UA Mucus (test code = Few /LPF UA Mucus) *NA*(01/08/2012 12:30:00) [facility] CenterSfeyklxPDYXYLROJR3883-29-24 17:30:00 Test Item Value Reference Range Interpretation Comments UA Nitrite (test code Negative (01/08/2012 N = UA Nitrite) 12:30:00) [facility] CenterTklrexlPZSUROXFOX9243-44-02 17:30:00 Test Item Value Reference Range Interpretation Comments UA Leuk Est (test Negative (01/08/2012 N code = UA Leuk Est) 12:30:00) [facility] CenterBpfoccsNADUFJQDIY1931-05-25 17:30:00 Test Item Value Reference Range Interpretation Comments UA Ketones (test code Negative mg/dL = UA Ketones) *NA*(01/08/2012 12:30:00) [facility] CenterOtsayzwFARWPZTCHZ6826-78-79 17:30:00 Test Item Value Reference Range Interpretation Comments UA Bili (test code = Negative *NA*(01/08/2012 UA Bili) 12:30:00) [facility] CenterEmtkgscECPXVSAFZL7168-08-83 17:30:00 Test Item Value Reference Range Interpretation Comments UA Blood (test code = Negative (01/08/2012 N UA Blood) 12:30:00) [facility] CenterUiyhtciEDUGKPZHBI5230-33-91 17:30:00 Test Item Value Reference Range Interpretation Comments UA pH (test code = UA pH) 5.5 5.0-8.0 N [facility] CenterKhrxdepJXTDYKBRGM2528-43-94 17:30:00 Test Item Value Reference Range Interpretation Comments UA Protein (test code = 200 mg/dL A UA Protein) *ABN*(01/08/2012 12:30:00) [facility] CenterGnlizzpBBWCLUSXRA2257-88-78 17:30:00 Test Item Value Reference Range Interpretation Comments UA Glucose (test code Negative mg/dL = UA Glucose) *NA*(01/08/2012 12:30:00) [facility] HospitalWlnoeytAZTPGUAJSF2867-77-18 17:30:00 Test Item Value Reference Range Interpretation Comments UA Sq Epi (test code = UA Sq Epi) None Seen [facility] HospitalEshladzDXEPSIYEVX5156-33-54 17:30:00 Test Item Value Reference Range Interpretation Comments UA Spec Grav (test code = UA Spec Grav) 1.012 N [facility]YntsglxVZBBMQEINH0435-50-92 17:30:00 Test Item Value Reference Range Interpretation Comments UA Color (test code = Yellow *NA*(01/08/2012 UA Color) 12:30:00) [facility]anoSpuvaviZLAGAJTLHP1972-46-09 17:30:00 Test Item Value Reference Range Interpretation Comments UA Turbidity (test code = Clear (01/08/2012 N UA Turbidity) 12:30:00) [facility] HospitalNdoepvyAqgptsaxppck5052-77-40 17:30:00 Test Item Value Reference Range Interpretation Comments Culture: Urine (test code = Culture: Urine) [facility] History and Physical Notes Date/Time Note Provider Source 2022-12-14 17:17:00-00:00 Hanna Mitchell MD: [facility] PERFORMEvent Display: History and PhysicalAuthored Date: [id number] and Physical Primary Team Name:Team Contact Info:PCP Contact info:Family contact info: Rosy Ingram (friend) Code Status: None Specified=FULL CODE Chief Complaint: LUE swelling History of Present Illness: 57M w/ ESRD on HD (MWF), HTN, Hx CVA 10/2013 (residual LUE weakness and left facial droop), past polysubstance abuse > 10 years ago [place] [facility] [facility] for AV graft dysfunction. Patient has had LUE swelling x weeks. He reported this to dialysis clinic; "they listen to it and said that the pressure was too high and my fistula, so they would not do dialysis." Last HD on Friday. Patient reports pain on inner elbow, where there is a large swelling. Also painful to touch. No skin changes. No fevers, chills. 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 Patient has pending surgery planned for possible revision with [facility] in [place], however surgery has been postponed 2/2 supply shortage. Review of Systems: Review of Systems Constitutional: No unexpected weight loss/gain; no weakness/fatigue; no night sweats; no loss of appetiteHEENT: no headache; no change in vision or hearing; no neck swelling or difficulty swallowing; no nasal congestion or rhinnorhea; no sore throat or hoarsenessRespiratory: no dyspnea or coughCV: no chest pain or palpitations; no light-headedness no LE swelling + L UE swelling; no decrease in exercise tolerance or orthopnea GI: no n/v/d, no constipation Genitourinary: no dysuria, polyuria, hematuria; no flank pain Heme: no bleeding or bruisingEndocrine: no heat/cold intolerance no polyuria or excessive thirstMSK: + Per HPIIntegumentary: no rash Neuro: no focal weakness or changes in sensation; baseline cognition; normal gait Psychiatric: no anxiety or depression Problem List/Past Medical History: Ongoing ESRD on hemodialysis Hemiparesis of left dominant side History of adenomatous polyp of colon History of stroke HTN (hypertension) Obesity Procedure/Surgical History: Colonoscopy (09/24/2018) Arteriovenous fistula operation (05/15/2017) Insertion of tunneled central venous catheter using fluoroscopic guidance (2016) Family History: Cancer: Grandparent. High blood pressure: Father. Type 2 diabetes mellitus: Mother, Father and Grandparent. Sister: History is negative Social History: Alcohol Past, Type Beer. Last use: 2013. Started age 15 Years. Stopped age 48 Years. Previous treatment: " I could no longer afford". Alcohol use interferes with work or home: Yes. Drinks more than intended: No. Others hurt by drinking: No. Ready to change: Yes. Household alcohol concerns: No. Electronic Cigarette/Vaping Electronic Cigarette Use: Never. Employment/School Status: Unemployed. Exercise Exercise type: Walking. Sexual Sexually active: No. Substance Abuse Use: Past. Type: Cocaine. Recreational Drug Route: Inhaled. Stopped age 48 Years. Cessation Education Provided: No. Tobacco Use: Former smoker. Type: Cigarettes. 4 per day. 10 year(s). Started age 16.0 Years. Stopped age 26 Years. Previous treatment: "Could no longer afford". Ready to change: Yes. Household tobacco concerns: No. Tobacco smoke exposure: Lives with someone who smokes. Did the Patient Smoke Cigarettes Anytime During the Last 365 Days? No. Cessation Counseling Provided? No. Allergies: No Known Medication Allergies shellfish (rash) Home Medications: Renvela 800 mg oral tablet, 1600 mg= 2 tab, PO, TID, with meals and take 1 tablet po if snack. Metoprolol tartrate 25 mg every 12 hours Physical Exam: Vitals and Measurements T: 97.7 F (Oral) HR: 73 (Peripheral) BP: 136/86 SpO2: 99% WT: 91.364 kg BMI: 31.55 Physical Exam: General: no acute distressEyes: pupils equal and reactive; sclerae anicteric; conjunctivae and lids without lesionsEars/Nose/Mouth/Throat: moist mucous membranes; normal dentitionCardiovascular: regular rate and rhythm; + systolic murmur; no LE edema; +LUE no palpable bruit, 2 foci of swelling, mildly tender; no erythema or signs of local infectionRespiratory: CTAB; no retractions /accessory muscle useGastrointestinal: soft, nontender, nondistended; no hernias appreciated; normoactive bowel soundsGenitourinary: deferredMusculoskeletal: LUE weakness/cannot move (baseline)Skin: warm and dry; no rash noted; no palpable cutaneous lesions appreciatedNeurologic: eyes open spontaneously; follows commands; CN grossly intact ; LUE per above and left facial droop (baseline)Psychiatric: alert and oriented x 3; appropriate mood and affect; good judgement Pertinent Labs: Outside ER labs reviewedCBC: Hb 12.6, MCV 100.8CMP: K4.6, BUN 33, CR 8.36, CA 8.2Admission labs ordered Assessment/Plan: Malfunctioning HD catheter, likely 2/2 thrombosis 1. 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 ESRD on hemodialysis (N18.6) Ordered: Renvela, 1,600 mg, Route: PO, TID-Meals, Dosing Weight 91.364, kg, Start date: 12/03/22 8:00:00 DEPLOYMENT TECHNICIAN, Duration: 30 day, Stop date: 01/01/23 17:00:00 CDT, Admit/Condition, 12/03/22 5:29:00 DEPLOYMENT TECHNICIAN, Status: Inpatient, Acute, Expected LOS: 2 Midnights, Hanna Mitchell MD, Admit MD Review/Approve Yes, Isolation: No Isolation/Standard Precautions, Complications, dialysis, catheter, mechanical | ESRD on hemodialysis 3. HTN (hypertension) (I10) Ordered: metoprolol tartrate, 25 mg, Route: PO, Drug form: TAB, Q12H, Dosing Weight 91.364, kg, Start date: 12/03/22 9:00:00 DEPLOYMENT TECHNICIAN, Duration: 30 day, Stop date: 01/01/23 21:00:00 CDT 4. History of stroke in adulthood (Z86.73) Residual LUE weakness/near paralysis and left facial droop N.p.o. after 3 AM for vascular surgery evaluation Prophylaxis -SCDs-Holding chemical VTE PPx at this time for evaluation for possible same-day invasive procedure Disposition Inpatient admissionBaksHanna ascencio MDElectronically Signed: 12/03/22 05:37 Notes Date/Time Note Provider Source 2022-12-06 PROCEDURE INFORMATION: CARMINA Londono ast 07:15:23-00:00 Exam: XR Chest Exam date and time: 12/06/2022 7:04 AM Age: 57 years old Clinical indication: /line placement TECHNIQUE: Imaging protocol: Radiologic exam of the chest. Views: 1 view. COMPARISON: CHEST 1VIEW DX 12/03/2022 7:11 AM FINDINGS: Lungs: Normal lung volumes. No consolidation. Pleural spaces: Unremarkable. No pleural effusio n. No pneumothorax. Heart/Mediastinum: The cardiac silhouette is upp er limits of normal in size. Minimal vascular congestion. A right IJ Tessio c atheter has been placed with tips in the region the distal SVC. Bones/joints: Unremarkable. IMPRESSION: 1. Borderline cardiomegaly with minimal vascular congestion. 2. Right IJ Tessio catheter placement. Matty Cote MD On 12/06/2022 07:43:05; ANTONI-K [id number] 2022-12-03 PROCEDURE INFORMATION: CARMINA peck 08:00:00-00:00 Exam: US Duplex Hemodialysis Access Exam date and time: 12/03/2022 7:54 AM Age: 57 years old Clinical indication: /av graft dysfunction TECHNIQUE: Imaging protocol: US Duplex hemodialysis access with izaguirre scale, color Doppler, and spectral waveform analysis. Vascular access, inflow and outflow were evaluated. Duplex exam was performed to evaluate for vascular conditions. COMPARISON: No relevant prior studies available. 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 A stent is seen within the graft. There is a moderate amount of thrombus material within the graft. No elevated velocities within the graft. No thrombosis identified to the visualized left cephalic vein outflow. IMPRESSION: There is a left brachial artery to left cephalic vein AV fistula that is patent. A stent is seen within the graft. There is a moderate amount of thrombus material within the graft. No elevated velocities within the graft. No thrombosis identified to the visualized left cephalic vein outflow. Valentin Evans MD On 12/03/2022 09:19:45; VR -[id number] 2022-12-03 PROCEDURE INFORMATION: CARMINA peck 07:05:00-00:00 Exam: XR Chest Exam date and time: 12/03/2022 7:11 AM Age: 57 years old Clinical indication: Coughing/preop TECHNIQUE: Imaging protocol: Radiologic exam of the chest. Views: 1 view. COMPARISON: CHEST 1VIEW DX 04/09/2017 5:38 PM FINDINGS: Lungs: No acute airspace consolidation. Pleural spaces: No pleural effusion. No pneumoth orax. Heart/Mediastinum: Heart is at the upper limit o f normal for size. Vasculature: Atherosclerotic calcificati ons. Vascular stent in the left chest. Bones/joints: No acute fracture. IMPRESSION: No acute cardiopulmonary process. Nigel Tsai MD On 12/03/2022 08:03:26; [id number] 2018-01-27 EXAM: XR LEFT KNEE 3 VIEWS [facility] 16:25:00-00:00 DATE: 01/27/[address] INDICATION: - L knee pain after fall COMPARISON: Left knee radiograph 11/03/2012 TECHNIQUE: 3 views of the knee FINDINGS: No acute fracture or malalignment is i dentified. No knee joint effusion is present. No soft tissu e abnormality is identified. IMPRESSION: No acute abnormality. UT SECTION: ER 2017-04-10 PROCEDURES PERFORMED: Sugar L and 12:02:35-00:00 1. Exchange of right IJ tunnelled hemodialysis c atheter 2. SVC venogram 3. SVC venoplasty 4. SVC venous thrombectomy with Pernell balloon 5. Moderate sedation HISTORY: Arterial port not a spirating from right perm-a-cath. Exchange requested. CONSENT: Prior to the proced ure, the procedure, risks, benefits and alternatives were discussed with the patient. Written informed consent was obtained and documented in the patient's chart. SEDATION: Moderate sedation was administered by the radiology nurse and supervised by myself for the duration of the procedure. Total sedation time was 30 minutes. DAP :[id number] mgy-cm Fluoro time: 8.3 min PROCEDURE DETAILS: Sterile barrier technique wa harrison followed including: Cap and mask, sterile gown, sterile gloves, and large sterile sheet. Hand hygiene, and 2% chlorhexidine for cutaneous antisepsis (or acceptable alternative antiseptics, per current guideline). The right neck and upper ganesh st were prepped and draped in a standard sterile fashion. Local lidocaine was administered in the right upper chest wall soft tissues. Blunt dissection was performed until th e catheter cuff was free. Th en, over two 035 glide wires, the catheter was exchanged for a 7-[place] vascular sheath. An SVC venogram was performe d. Balloon angioplasty was performed of the SVC stenosis with a 10 mm balloon. There is residual thrombus noted in the proximal SVC. Mechanical thrombectomy was performed mul tiple times with the Pernell balloon to debulk the adherent mural thrombus. A final venogram was performed demonstrating excellent flow to the right atrium. Next, over both the glide wires, a 19-tipped cuff dual-lumen permacath wa s advanced and positioned within the right atrium. There is excellent flow noted through both lumens. The patient tolerated proced ure well, and there were no immediate complications. IMPRESSION: 1. S/p exchange of tunneled right IJ hemodialysis catheter, as described above. A 19 cm tip to cuff length catheter was placed. 2. 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 PLAN: New catheter is okay for use. 2017-04-10 PROCEDURES PERFORMED: CARMINA Barajas and 11:13:41-00:00 1. Exchange of right IJ tunnelled hemodialysis c atheter 2. SVC venogram 3. SVC venoplasty 4. SVC venous thrombectomy with Pernell balloon 5. Moderate sedation HISTORY: Arterial port not a spirating from right perm-a-cath. Exchange requested. CONSENT: Prior to the proced ure, the procedure, risks, benefits and alternatives were discussed with the patient. Written informed consent was obtained and documented in the patient's chart. SEDATION: Moderate sedation was administered by the radiology nurse and supervised by myself for the duration of the procedure. Total sedation time was 30 minutes. DAP :[id number] mgy-cm Fluoro time: 8.3 min PROCEDURE DETAILS: Sterile barrier technique roberto carlos terry followed including: Cap and mask, sterile gown, sterile gloves, and large sterile sheet. Hand hygiene, and 2% chlorhexidine for cutaneous antisepsis (or acceptable alternative antiseptics, per current guideline). The right neck and upper ganes[address] st were prepped and draped in a standard sterile fashion. Local lidocaine was administered in the right upper chest wall soft tissues. Blunt dissection was performed until th e catheter cuff was free. Th en, over two 035 glide wires, the catheter was exchanged for a 7-[place] vascular sheath. An SVC venogram was performe d. Balloon angioplasty was performed of the SVC stenosis with a 10 mm balloon. There is residual thrombus noted in the proximal SVC. Mechanical thrombectomy was performed mul tiple times with the Pernell balloon to debulk the adherent mural thrombus. A final venogram was performed demonstrating excellent flow to the right atrium. Next, over both the glide wires, a 19-tipped cuff dual-lumen permacath wa s advanced and positioned within the right atrium. There is excellent flow noted through both lumens. The patient tolerated proced ure well, and there were no immediate complications. IMPRESSION: 1. S/p exchange of tunneled right IJ hemodialysis catheter, as described above. A 19 cm tip to cuff length catheter was placed. 2. 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 PLAN: New catheter is okay for use. 2017-04-10 PROCEDURES PERFORMED: CARMINA Barajas and 11:13:30-00:00 1. Exchange of right IJ tunnelled hemodialysis c atheter 2. SVC venogram 3. SVC venoplasty 4. SVC venous thrombectomy with Pernell balloon 5. Moderate sedation HISTORY: Arterial port not a spirating from right perm-a-cath. Exchange requested. CONSENT: Prior to the proced ure, the procedure, risks, benefits and alternatives were discussed with the patient. Written informed consent was obtained and documented in the patient's chart. SEDATION: Moderate sedation was administered by the radiology nurse and supervised by myself for the duration of the procedure. Total sedation time was 30 minutes. DAP :965123 mgy-cm Fluoro time: 8.3 min PROCEDURE DETAILS: Sterile barrier technique wa s followed including: Cap and mask, sterile gown, sterile gloves, and large sterile sheet. Hand hygiene, and 2% chlorhexidine for cutaneous antisepsis (or acceptable alternative antiseptics, per current guideline). The right neck and upper ganesh st were prepped and draped in a standard sterile fashion. Local lidocaine was administered in the right upper chest wall soft tissues. Blunt dissection was performed until th e catheter cuff was free. Th en, over two 035 glide wires, the catheter was exchanged for a 7-[place] vascular sheath. An SVC venogram was performe d. Balloon angioplasty was performed of the SVC stenosis with a 10 mm balloon. There is residual thrombus noted in the proximal SVC. Mechanical thrombectomy was performed mul tiple times with the Pernell balloon to debulk the adherent mural thrombus. A final venogram was performed demonstrating excellent flow to the right atrium. Next, over both the glide wires, a 19-tipped cuff dual-lumen permacath wa s advanced and positioned within the right atrium. There is excellent flow noted through both lumens. The patient tolerated proced ure well, and there were no immediate complications. IMPRESSION: 1. S/p exchange of tunneled right IJ hemodialysis catheter, as described above. A 19 cm tip to cuff length catheter was placed. 2. 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 PLAN: New catheter is okay for use. 2017-04-10 PROCEDURES PERFORMED: CARMINA Whyte Gayle and 11:13:10-00:00 1. Exchange of right IJ tunnelled hemodialysis c atheter 2. SVC venogram 3. SVC venoplasty 4. SVC venous thrombectomy with Pernell balloon 5. Moderate sedation HISTORY: Arterial port not a spirating from right perm-a-cath. Exchange requested. CONSENT: Prior to the proced ure, the procedure, risks, benefits and alternatives were discussed with the patient. Written informed consent was obtained and documented in the patient's chart. SEDATION: Moderate sedation was administered by the radiology nurse and supervised by myself for the duration of the procedure. Total sedation time was 30 minutes. DAP :907401 mgy-cm Fluoro time: 8.3 min PROCEDURE DETAILS: Sterile barrier technique wa s followed including: Cap and mask, sterile gown, sterile gloves, and large sterile sheet. Hand hygiene, and 2% chlorhexidine for cutaneous antisepsis (or acceptable alternative antiseptics, per current guideline). The right neck and upper ganesh st were prepped and draped in a standard sterile fashion. Local lidocaine was administered in the right upper chest wall soft tissues. Blunt dissection was performed until th e catheter cuff was free. Th en, over two 035 glide wires, the catheter was exchanged for a 7-[place] vascular sheath. An SVC venogram was performe d. Balloon angioplasty was performed of the SVC stenosis with a 10 mm balloon. There is residual thrombus noted in the proximal SVC. Mechanical thrombectomy was performed mul tiple times with the Pernell balloon to debulk the adherent mural thrombus. A final venogram was performed demonstrating excellent flow to the right atrium. Next, over both the glide wires, a 19-tipped cuff dual-lumen permacath wa s advanced and positioned within the right atrium. There is excellent flow noted through both lumens. The patient tolerated proced ure well, and there were no immediate complications. IMPRESSION: 1. S/p exchange of tunneled right IJ hemodialysis catheter, as described above. A 19 cm tip to cuff length catheter was placed. 2. 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 PLAN: New catheter is okay for use. 2017-04-09 CLINICAL HISTORY: - dialysis catheter malfunctio ramesh Walden 17:46:48-00:00 AGE: 51 years GENDER: Male TECHNIQUE: Single AP, portable chest radiograph, 1 view. COMPARISON: 03/11/2017 FINDINGS: The cardiomediastinal silhouette demonstrates no rmal heart size. No focal airspace or interst itial opacities are seen. No pleural effusions. No pneumothorax. Right IJ dialysis catheter with its tip in the superior SVC. No significant osseous abnormalities are identif ied. IMPRESSION: No acute cardiopulmonary dis ease. Right IJ dialysis catheter with its tip in the SVC. 2017-03-12 PROCEDURES PERFORMED: Isabell and 12:45:10-00:00 1. Placement of tunnelled hemodialysis catheter 2. Ultrasound guidance for vascular access. 3. Moderate sedation. HISTORY: Renal failure, requiring hemodialysis. Permacath is requested. CONSENT: Prior to the proced ure, the procedure, risks, benefits and alternatives were discussed with the patient. Written informed consent was obtained and documented in the patient's chart. SEDATION: Moderate sedation was administered by the radiology nurse and supervised by myself for the duration of the procedure. Total sedation time was 30 minutes. DAP: 2149 mgy-cm Fluoro time: 0.6 min PROCEDURE DETAILS: Sterile barrier technique wa s followed including: Cap and mask, sterile gown, sterile gloves, and large sterile sheet. Hand hygiene, and 2% chlorhexidine for cutaneous antisepsis (or acceptable alternative antiseptics, per current guideline). The right neck and upper ganesh st were prepped and draped in a standard sterile fashion. After administering local anesthesia a micropuncture kit was utilized access right internal jugular vein.The right i nternal jugular vein is chambers nt and compressible. Images were sent to PACS for archiving. The skin and subcutaneous so ft tissues along the anticipated course of the tunnel were anesthetized with 1% lidocaine with epinephrine. A small dermatotomy was made and the dialysis catheter was tunnele d under the skin to the site of the puncture in the lower neck. A 0.035 wire was then advanc through the micropuncture sheath to the level of the IVC. Over the 0.035 wire the puncture site was sequentially dilated, ultimately with an 18 [place] peel-away sheath. Th e wire and dilator were meredith donna and dialysis catheter was advanced through the peel-away sheath. The sheath was peeled-away a nd the catheter was manipulated into position. There was excellent blood return from both ports. Each port was flushed with saline and packed with heparin. The catheter was attached to the skin using two silk sutures. The patient tolerated proced ure well, and there were no immediate complications. FINDINGS: The right internal jugular vein is patent and fu lly compressible. IMPRESSION: Placement of tunneled right IJ hemodialysis catheter as described above. A 19 cm tip to cuff length catheter was placed. Catheter is okay for use. 2017-03-11 EXAM: XR CHEST 1 VIEW Sugar L and 08:45:00-00:00 DATE: 03/11/2017 8:41 AM CDT INDICATION: renal failure - eval COMPARISON: 11/24/2013 TECHNIQUE: Frontal chest radiograph FINDINGS: The lungs are clear. The cardiomediastinal silhouette is normal. There is no acute bony abnormality. IMPRESSION: No acute abnormality SL: [id number] 2017-03-10 EXAM: [facility] 20:38:23-00:00 Renal ultrasound. CLINICAL HX: Kidney failure. Age: 51 years. Gender: Male. TECHNIQUE: Grayscale and Doppler sonogram of the kidneys. COMPARISON: Renal ultrasound: 11/22/2013. FINDINGS: Right kidney: -- Length: 1.1 cm. -- Cortical thickness: 1.5 cm. -- Hydronephrosis: Negative. -- Echogenicity: Increased. -- Other: None. Left kidney: -- Length: 9.7 cm. -- Cortical thickness: 0.9 cm. -- Hydronephrosis: Negative. -- Echogenicity: Increased. -- Other: None. Urinary bladder: -- Lumen: Unremarkable. -- Other: Lateral ureteral jets visualized. Vascular: -- Aorta: Not evaluated. -- Common iliac artery origins: Not evaluated. -- IVC: Not evaluated. Other: None. IMPRESSION: 1. Increased echogenicity of the kidneys. Correlate clinically for medical renal disease. 2013-11-26 STUDY: Esophagus barium swallow function video ( Rad) [facility] 10:42:33-00:00 Fluoro time: 4.1 min FINDINGS: Fluoroscopic imagi ng was provided for the speech pathologist to perform a modified barium swallow study. The patient was allowed to ingest foods containing barium and lateral imaging of the pharynx and esophagus was performed. IMPRESSION: Fluoroscopic seven ging provided for modified barium swallow study. Please see speech pathologist report for findings. 2013-11-24 Single view abdomen. [facility] 22:48:45-00:00 INDICATION: Tube change. COMPARISON: Yesterday. IMPRESSION: There appears to be a nasoga stric tube with tip projecting over the left upper quadrant in the expected region of the stomach. 2013-11-24 Single view chest. [facility] it 04:14:30-00:00 INDICATION: Cough and fever. COMPARISON: November 22, 2013. FINDINGS: New nasogastric tube with ti p inferior to the level of exam. Cardiac silhouette is within normal limits. Mild pulmonary vascular congestion is again seen. No pneumothorax, lobar consolidation, or pleural effusion. Unremarkable osseous structures. IMPRESSION: Stable mild pulmonary vascular congestion. 2013-11-23 CLINICAL HISTORY:Bleeding. [facility] 19:29:02-00:00 Sex: M. : 1965. TECHNIQUE: Axial scans were performed through the head with axial dataset following bolus intravenous injection of 50 cc of Visipaque including multiplanar computer-generated MIP reformations. 3-D imagi ng was unable to be performed. Total Dose(DLP): 2016 mGy-cm. CTA brain: Large right-sided hemorrhage s with edema and mass effect noted on the well head pumper series. Visualization is limited bec ause of the reduced contrast dose. The cavernous, supraclinoid segments of the internal carotid arteries are normal. The A1 and distal branches of the anterior cerebral arter ies normal. The M1 and dista l branches of the middle cerebral arteries normal. The distal left vertebral artery is seen. The right vertebral artery is not well visualized The basilar artery and tip is normal. Posterior cerebral arteries are normal. IMPRESSION: 1. No hemodynamically significant lesion. 2013-11-23 Exam: Abdomen one view [facility] 13:23:26-00:00 History: Tube placement Comparison Study: None. Findings: AP supine view of the abdomen demonstrates a nonspecific bowel gas pattern. Presence of a nasogastric tube is noted in satisfactory position. There is no evidence of organomegaly. There is no evidence of radiopaque calcu li or calcifications . The bony structures are unremarkable.. . Impression: Nonspecific bowel gas pattern . NG tube is in s atisfactory position . 2013-11-22 CLINICAL HISTORY:Bleeding. [facility] 20:32:41-00:00 Sex: M. : 1965. TECHNIQUE: Axial scans of th e brain without contrast including multiplanar computer-generated reformations. Total Dose(DLP): 767.06 mGy-cm. Comparison to previous same day at 1239. Hemorrhage in the right melnay sphere centered in the basal ganglia with a thalamic component that measures 24 x 13 mm and a peripheral component that measures 48 x 21 mm is again seen compared to previous measurements 20 x 17 mm and 51 x 23 mm. On series 2 image 15 I suspect there is a small amount of blood dependently in the left atrium indicating intraventricular rupture. There is no significant gamez e. There is a rim of edema. There is moderate mass effect on the right lateral ventricle that is significantly constricted. There is no appreciable midline shift at this point in the anterior region but bowing of the third ventric le to the left of midline. There is mass effect on the right cerebral peduncle. The fourth ventricle is not dilated. Thickening noted in the paranasal sinuses. IMPRESSION: 1. Stable followup examinati on the right side hemorrhage with mass effect and edema and probable small intraventricular rupture. 2013-11-22 [facility] 20:15:09-00:00 CLINICAL HISTORY: Renal insufficiency. Sex: M. : 1965. Date of exam November 22, 2013. TECHNIQUE: Transabdominal gr ayscale and color flow imaging of the bilateral kidneys and urinary bladder. Right kidney: The right kidn ey measures 8.3 x 4.3 x 5.0 cm. Cortical echodensity is normal and 8 mm thick. There is no mass or hydronephrosis. There is normal renal color flow. Urinary bladder: The bladder wall is not distend ed and not further evaluated. Left kidney: The left kidney measures 9.7 x 5.0 x 5.0 cm. Cortical echodensity is normal and 8 mm thick. There is no mass or hydronephrosis. There is normal renal color flow. Aorta and IVC are unremarkable, as visualized . IMPRESSION: 1. Negative renal ultrasound. 2013-11-22 STUDY: Chest 1view [facility] ity 13:14:52-00:00 COMPARISON: Chest, single view dated 01/08/2012. FINDINGS: Single portable view of the chest was obtained. The lungs are clear bilatera lly without focal consolidation or mass. Perihilar airspace opacities are identified suggestive of central vascular congestion. The heart size is enlarged there is no pleural effusion or pneumothorax. The osseous structure s are normal. IMPRESSION: Mild central vascular conges tion and cardiomegaly. No focal consolidation seen. 2013-11-22 CT of the head without contrast [facility] 12:53:43-00:00 Comparison:None Exam Dose Length Product: 1002 mGy-centimeter Findings: Streak artifact li mits some of the detail in the posterior fossa. There is acute hemorrhage involving the right basal ganglia measuring 3.5 x 5.1 x 2.0 cm in sagittal, AP, and transverse dimen sions, respectively. There i s a second adjacent acute hemorrhage involving the right thalamus and extending into the cerebral peduncle measuring 3.2 x 2.3 x 1.7 cm. There is associated mass effect with compression of the right lat eral ventricle and approximately 4 millimeters of midline shift from right to left at the level foramen Monro. There is no current hydrocephalus though there is near complete compression of the right la teral ventricular atrium without current temporal horn dilatation. There is slight medialization of the right uncus without indigo herniation. There is no scalp hematoma, fracture, subdural hematoma, nor subarachnoid hemorrhage to suggest this is traumatic in nature. There is mild scattered paranasal sinus mucosal thickening and a minimal righ t mastoid effusion without m iddle ear fluid nor evidence of nasopharyngeal obstruction. The orbits are unremarkable. Impression: Two areas of acute hematoma involving the right basal ganglia and left thalamus extending into the cerebral peduncle. Associated mass effect and midline shift. Recommend neurosurgical consultation. This is likely secondary to hypertensive hemorrhage, although aneurysm cannot be completely excluded by noncontrast imaging. Consider CTA if there is further clinical concern. Findings discussed with Dr. Hassan of the emergency room at 13:00 on November 22, 2013
--- NOTE | 2023-03-26 14:26 | RAD REPORT ---
EXAM DESCRIPTION: RAD - Chest Single View - 03/26/2023 2:09 pm CLINICAL HISTORY: tachycardia Chest pain. COMPARISON: Chest Single View dated 11/19/2022; Chest Single View dated 08/05/2022; Chest Single View dated 07/29/2022; Chest Single View dated 07/24/2022 FINDINGS: Portable technique limits examination quality. The lungs are grossly clear. The heart is normal in size. No displaced fractures. IMPRESSION: No acute intrathoracic process suspected.
[2023-03-26 14:28] LABS: Absolute Lymphocytes (CBC) 1.4 K/uL (0.7-4.9); Hematocrit 46.3 % (39.6-49.0); Lymphocytes % 20.3 % (15.3-44.8); MCV 97.7 fL (80-100); MPV 7.7 fL (7.6-11.3); RBC Red Blood Cell Count 4.74 M/uL (4.33-5.43)
[2023-03-26 14:55] LABS: Bicarbonate 25 mEq/L (21-32); Glucose Level 108 mg/dL (74-106); Potassium 3.9 mEq/L (3.5-5.1); Sodium Level 134 mEq/L (136-145)
[2023-03-26 14:56] LABS: ALT/SGPT 12 U/L (16-61); AST/SGOT 6 U/L (15-37); Albumin 3.7 g/dL (3.4-5.0); Alkaline Phosphatase 87 U/L (45-117); BUN Blood Urea Nitrogen 32 mg/dL (7-18); Bilirubin Direct < 0.1 mg/dL (0-0.2); Bilirubin Indirect, Calculated ND mg/dL (0.2-0.8); Bilirubin Total 0.3 mg/dL (0.2-1.0); Glomerular Filtration Rate 7 ml/min (=/>90); Magnesium 2.6 mg/dL (1.6-2.4); Protein, Total 8.4 g/dL (6.4-8.2); Troponin High Sensitivity 21.5 pg/mL (<58.9)
--- NOTE | 2023-03-26 15:46 | EDPHYS ---
Physician Documentation [facility] Name: Ben Otto Age: 57 yrs Sex: Male : 1965 Arrival Date: 03/26/2023 Time: 13:23 Bed 7 Private MD: ED Physician Elton Aguayo HPI: 03/26 13:41 This 57 yrs old Male presents to ER via EMS with complaints of Tachycardia. rt 13:41 Patient presents to the ED with tachycardia that occurred after about 1 hour of rt dialysis. Patient states that this also occurred on Friday and they also did terminate dialysis at about 1 hour. The patient states that his heart rate was up to the 170s. He reports blurred vision at that time but denies any shortness of breath, chest pain. The symptoms have subsequently resolved. Patient denies other acute complaints at this time, symptoms are moderate in severity, no other aggravating or alleviating factors. Historical: - Allergies: 13:25 SHELLFISH; bp - Home Meds: 13:25 metoprolol succinate 25 mg Oral Tb24 [Active]; Amiodarone Oral [Active]; atorvastatin bp oral [Active]; aspirin 81 mg Oral capsule daily [Active]; Clonidine Oral [Active]; Norvasc Oral [Active]; Renvela oral [Active]; - PMHx: 13:25 chronic immune disease; CVA; Dialysis; M-W-F; End stage renal disease; Hypertensive bp disorder; - PSHx: 13:25 Left upper arm fistula; bp - Immunization history:: Adult Immunizations up to date. - Social history:: Smoking status: Patient denies any tobacco usage or history of. - Family history:: not pertinent. ROS: 13:41 Constitutional: Negative for fever, chills, and weight loss, Cardiovascular: Negative rt for chest pain, palpitations, and edema, Respiratory: Negative for shortness of breath, cough, wheezing, and pleuritic chest pain, Abdomen/GI: Negative for abdominal pain, nausea, vomiting, diarrhea, and constipation, MS/Extremity: Negative for injury and deformity, Skin: Negative for injury, rash, and discoloration, Neuro: Negative for headache, weakness, numbness, tingling, and seizure, Psych: Negative for depression, anxiety, suicide ideation, homicidal ideation, and hallucinations. Exam: 13:41 Constitutional: This is a well developed, well nourished patient who is awake, alert, rt and in no acute distress. Head/Face: Normocephalic, atraumatic. Chest/axilla: Normal chest wall appearance and motion. Nontender with no deformity. No lesions are appreciated. Cardiovascular: Regular rate and rhythm with a normal S1 and S2. No gallops, murmurs, or rubs. Normal PMI, no JVD. No pulse deficits. Respiratory: Lungs have equal breath sounds bilaterally, clear to auscultation and percussion. No rales, rhonchi or wheezes noted. No increased work of breathing, no retractions or nasal flaring. Abdomen/GI: Soft, non-tender, with normal bowel sounds. No distension or tympany. No guarding or rebound. No evidence of tenderness throughout. Skin: Warm, dry with normal turgor. Normal color with no rashes, no lesions, and no evidence of cellulitis. Neuro: Awake and alert, GCS 15, oriented to person, place, time, and situation. Cranial nerves II-XII grossly intact. Motor strength 5/5 in all extremities. Sensory grossly intact. Cerebellar exam normal. Normal gait. Psych: Awake, alert, with orientation to person, place and time. Behavior, mood, and affect are within normal limits. 13:59 ECG was reviewed by the Attending Physician. rt Vital Signs: 13:24 BP 124 / 84; Pulse 78; Resp 18; Temp 98; Pulse Ox 99% ; bp 16:04 BP 118 / 82; Pulse 74; Resp 16; Pulse Ox 99% ; ko1 MDM: 13:32 Patient medically screened. rt 15:52 Differential diagnosis: A-fib, sinus tachycardia, thyrotoxicosis, electrolyte rt disturbance. Data reviewed: vital signs, nurses notes. Consideration of Admission/Observation Escalation of care including admission/observation considered. Management of patient was discussed with the following: Phonograph Mechanic: Discussed with the patient's deburring machine operator, states patient is appropriate for discharge, recommend increasing metoprolol from 25 mg daily to 50 mg daily. This was discussed with patient is comfortable discharge, follow-up.. I considered the following discharge prescriptions or medication management in the emergency department Medications were administered in the Emergency Department. See MAR. Independent interpretation of the following test(s) in the Emergency Department X-Ray: My interpretation is No consolidation seen on my interpretation of the CT scan images. Test considered but Not performed: CT: Low suspicion for PE, CT angiogram not indicated. Care significantly affected by the following chronic conditions: Chronic Kidney Disease. Counseling: I had a detailed discussion with the patient and/or guardian regarding: the historical points, exam findings, and any diagnostic results supporting the discharge/admit diagnosis, lab results, radiology results, the need for outpatient follow up, to return to the emergency department if symptoms worsen or persist or if there are any questions or concerns that arise at home. 03/26 13:39 Order name: Basic Metabolic Panel; Complete Time: 15:37 rt 03/26 13:39 Order name: CBC with Diff; Complete Time: 14:55 rt 03/26 13:39 Order name: LFT's; Complete Time: 15:37 rt 03/26 13:39 Order name: Magnesium; Complete Time: 15:37 rt 03/26 13:39 Order name: Troponin HS; Complete Time: 15:37 rt 03/26 13:39 Order name: TSH; Complete Time: 15:37 rt 03/26 13:39 Order name: UAM rt 03/26 13:39 Order name: XRAY Chest (1 view); Complete Time: 14:32 rt 03/26 13:39 Order name: EKG; Complete Time: 13:40 rt 03/26 13:39 Order name: Cardiac monitoring; Complete Time: 13:44 rt 03/26 13:39 Order name: EKG - Nurse/Tech; Complete Time: 13:58 rt 03/26 13:39 Order name: Labs collected and sent; Complete Time: 14:15 rt 03/26 13:39 Order name: O2 Per Protocol; Complete Time: 13:44 rt 03/26 13:39 Order name: O2 Sat Monitoring; Complete Time: 13:44 rt EC:59 Rate is 64 beats/min. Rhythm is regular, 1st Degree Block with No ectopy. QRS [place] is rt Normal. [place] interval is normal. QRS interval is normal. QT interval is normal. No Q waves. T waves are Normal. No ST changes noted. Interpreted by me. Administered Medications: No medications were administered Disposition Summary: 03/26/23 15:46 Discharge Ordered Location: Home rt Problem: an ongoing problem rt Symptoms: are resolved rt Condition: Stable rt Diagnosis - Tachycardia, unspecified rt Followup: rt - With: Charles Tracy MD - When: 2 - 3 days - Reason: Discharge Instructions: - Discharge Summary Sheet rt - Sinus Tachycardia rt Forms: - Medication Reconciliation Form rt - Thank You Letter rt - Antibiotic Education rt - Prescription Opioid Use rt - [email or web address] rt Prescriptions: - metoprolol succinate 50 mg Oral Tablet, Extended Release 24 hr - take 1 tablet by ORAL route once daily; 30 tablet; Refills: 0, Product rt Selection Permitted Signatures: Dispatcher [employer] Garth Trimble, RN RN bp Elton Aguayo MD MD rt
--- NOTE | 2023-03-26 15:46 | ER ---
Nurse's Notes [facility] Name: Ben Otto Age: 57 yrs Sex: Male : 1965 Arrival Date: 03/26/2023 Time: 13:23 Bed 7 Private MD: Diagnosis: Tachycardia, unspecified Presentation: 03/26 13:24 Chief complaint: EMS states: SENT FROM DIALYSIS 2/2 HIGH PULSE. Coronavirus screen: At bp this time, the client does not indicate any symptoms associated with coronavirus-19. Ebola Screen: No symptoms or risks identified at this time. Initial Sepsis Screen: Does the patient meet any 2 criteria? No. Patient's initial sepsis screen is negative. Does the patient have a suspected source of infection? No. Patient's initial sepsis screen is negative. Risk Assessment: Do you want to hurt yourself or someone else? Patient reports no desire to harm self or others. Onset of symptoms was March 26, 2023 at 13:00. 13:24 Method Of Arrival: EMS: [facility] bp 13:24 Acuity: JEREMY 3 bp Triage Assessment: 13:25 General: Appears in no apparent distress. Behavior is calm, cooperative, appropriate bp for age. Pain: Denies pain. EENT: No deficits noted. Neuro: No deficits noted. Cardiovascular: Rhythm is sinus rhythm. Respiratory: No deficits noted. GI: No signs and/or symptoms were reported involving the gastrointestinal system. : No signs and/or symptoms were reported regarding the genitourinary system. Derm: No deficits noted. Musculoskeletal: No deficits noted. Historical: - Allergies: 13:25 SHELLFISH; bp - Home Meds: 13:25 metoprolol succinate 25 mg Oral Tb24 [Active]; Amiodarone Oral [Active]; atorvastatin bp oral [Active]; aspirin 81 mg Oral capsule daily [Active]; Clonidine Oral [Active]; Norvasc Oral [Active]; Renvela oral [Active]; - PMHx: 13:25 chronic immune disease; CVA; Dialysis; M-W-F; End stage renal disease; Hypertensive bp disorder; - PSHx: 13:25 Left upper arm fistula; bp - Immunization history:: Adult Immunizations up to date. - Social history:: Smoking status: Patient denies any tobacco usage or history of. - Family history:: not pertinent. Screenin:28 [facility] ED Fall Risk Assessment (Adult) History of falling in the last 3 months, bp including since admission No falls in past 3 months (0 pts). Abuse screen: Denies threats or abuse. Denies injuries from another. Nutritional screening: No deficits noted. Tuberculosis screening: No symptoms or risk factors identified. Assessment: 13:28 General: DIALYSIS CLINIC CONCLUDED DIALYSIS EARLY, ONLY REMOVING 917CC 2/2 RAPID HEART bp RATE. PT STATES H/O SAME S/S INTERMITTENTLY.. Vital Signs: 13:24 BP 124 / 84; Pulse 78; Resp 18; Temp 98; Pulse Ox 99% ; bp 16:04 BP 118 / 82; Pulse 74; Resp 16; Pulse Ox 99% ; ko1 ED Course: 13:24 Patient arrived in ED. ko1 13:24 Garth Lindquist, RN is Primary Nurse. bp 13:25 Triage completed. bp 13:25 Arm band placed on. bp 13:28 Patient has correct armband on for positive identification. Bed in low position. Call bp light in reach. Side rails up X2. 13:31 Elton Aguayo MD is Attending Physician. rt 14:11 XRAY Chest (1 view) In Process Unspecified. EDMS 14:15 Basic Metabolic Panel Sent. ko1 14:15 CBC with Diff Sent. ko1 14:15 LFT's Sent. ko1 14:15 Magnesium Sent. ko1 14:15 Troponin HS Sent. ko1 14:15 TSH Sent. ko1 15:45 Charles Tracy MD is Referral Physician. rt 15:46 No provider procedures requiring assistance completed. Patient did not have IV access ko1 during this emergency room visit. Administered Medications: No medications were administered Medication: 13:28 VIS not applicable for this client. bp Outcome: 15:46 Discharge ordered by . rt 16:04 Discharged to home ambulatory. ko1 16:04 Condition: stable 16:04 Discharge instructions given to patient, Instructed on discharge instructions, follow up and referral plans. medication usage, Demonstrated understanding of instructions, follow-up care, medications, Prescriptions given X 1. 16:05 Patient left the ED. ko1 Signatures: Dispatcher [employer] EDMS Garth Lindquist, RN RN bp Christen Cancino RN RN ko1 Elton Aguayo MD MD rt
[2023-03-26 16:16] LABS: Specific Gravity 1.011 (1.005-1.030); Urine Bacteria <20 /HPF (<20); Urine Bilirubin NEGATIVE (Negative); Urine Blood 2+ (Negative); Urine Clarity Turbid (Clear); Urine Color Light-Yellow (Yellow); Urine Glucose 2+ (Negative); Urine Protein 2+ (Negative); Urine RBC <5 /HPF (None Seen); Urine Urobilinogen Normal (Normal); Urine WBC Clump Rare /HPF (None Seen); Urine pH 6.5 (5.0-7.0)
[2023-03-26 16:43] VITALS: TEMP 98; O2SAT 99
[2023-03-26 16:45] VITALS: BP 118/82
--- NOTE | 2023-03-27 12:36 | EKG ---
Test Date: 2023-03-26 Test Time: 13:56:32 [employer]: MELY MEASUREMENT RESULTS: Intervals: Rate: 64 [place]: 210 QRSD: 82 QT: 384 QTc: 396 [place]: P: 59 [place]: 210 QRS: 71 T: 30 INTERPRETIVE STATEMENTS: Sinus rhythm with 1st degree AV block Otherwise normal ECG Compared to ECG 11/19/2022 12:52:39 First degree AV block now present Electronically Signed On 03-27-23 12:34:56 CDT by Charles Tracy
== END 2023-03-26 16:05 | disposition home or self-care (01) ==
LOC: ER 13:23
DX: R00.0 Tachycardia, unspecified (principal); I12.0 Hypertensive chronic kidney disease with stage 5 chronic kidney disease or end stage renal disease; N18.6 End stage renal disease; Z99.2 Dependence on renal dialysis; Z91.013 Allergy to seafood; Z79.82 Long term (current) use of aspirin
CPT/HCPCS: 36415; 71045; 80048; 80076; 81001; 83735; 84443; 84484; 85025; 87086; 87088; 93005; 99284

== ENCOUNTER 2023-03-31 12:22 | Emergency (ER) | payer OTHER ==
--- OUTSIDE RECORDS SUMMARY | 2023-03-31 12:44 | XMS REPORT | Continuity of Care Document ---
:1965 Author Organization [facility] t Address [address] [place] [address] [place] [id number] Care Team Providers Name Role Phone PCP, PATIENT DOES NOT HAVE A Primary Care Physician UnavailSTEFANY Aldana Attending Clinician Unavailable GERMAN DEL RIO Attending Clinician Unavailable German Del Rio Attending Clinician [phone] REGAN MUKHERJEE Attending Clinician Unavailable BERONICA ZHOU Attending Clinician Unavailable Rosaline Brannon Attending Clinician ROBERTO PRATT Attending Clinician Unavailable Roberto Pratt MD Attending Clinician HOUSTON CHANG Attending Clinician Unavailable Houston Chang MD Attending Clinician Elidia Kat MD Attending Clinician [phone] Vtc-Lab Attending Clinician Unavailable Securities Supervisor, Transplant Attending Clinician Unavailable ANAI STONE Attending Clinician Unavailable Worker, Transplant Social Attending Clinician Unavailable Anai Stone MD Attending Clinician Renal, Transplant Class Attending Clinician Unavailable Jeromy Cannon Attending Clinician DR ELIUD MAY Attending Clinician Unavailable Sada Hurst Attending Clinician [phone] Romi Ritchie Attending Clinician Shun Roper Attending Clinician Stephanie Mg Attending Clinician Valeri Zarco Attending Clinician Shira Stevenson Attending Clinician DR PAUL BARFIELD Attending Clinician Unavailable Janak Ingram Attending Clinician Armond Moreland Attending Clinician Malorie Ahn Attending Clinician Eduin Tsai Attending Clinician Pancho Mireles Attending Clinician Mauricio Whitmore Attending Clinician Judy Calderon Attending Clinician STEFANY COTA Admitting Clinician Unavailable HANNA MITCHELL Admitting Clinician Unavailable Hanna Mitchell Admitting Clinician ROBERTO PRATT Admitting Clinician Unavailable DR ELIUD MAY Admitting Clinician Unavailable Shun Roper Admitting Clinician DR PAUL BARFIELD Admitting Clinician Unavailable Pancho Mireles Admitting Clinician Mauricio Whitmore Admitting Clinician Judy Calderon Admitting Clinician Payers Payer Name Policy Type Policy Number Effective Date Expiration Date S isidro [employer] MEDICARE [id number] 2018 ADVANTAGE HMO 00:00:00 [employer] GOLD PLS [id number] 2018 HMO 00:00:00 Problems Condition Condition Condition Status Onset Resolution Last Treating Co mments Source Name Details Category Date Date Treatment Clinician Date COMPLICATI COMPLICAT Diagnosis Active 2022-12-20 Memoria ONS, IONS, 3-06 21:47:00 l DIALYSIS, DIALYSIS, 00:00: Herm elidia CATHETER, CATHETER, 00 MECHA MECHA Active 12/02/2022 [place] COMPLICATI Diagnosis Active 2022-12-04 Memoria ON OF AV COMPLICATI 3 08:14:00 l FISTULA ON OF AV 00:00: [place] FISTULA 00 Active 12/02/2022 [facility] SI SI Active Diagnosis Active 2018-092019-08-19 Memoria 08/19/201910-19 14:02:00 l Sugar 00:00: [place] 00 NEW NEW Diagnosis Active 2019-06-22 Mem oria EVALUATION EVALUATION 03-18 07:29:00 l Active 00:00: [place] 03/18/2019 00 [facility] G81.92 G81.92 Diagnosis Active 2019-01-27 Me moria Active 01-27 09:05:00 l 01/27/2019 07:00: Luisito walsh [facility] 00 COLON COLON Diagnosis Active 2017-092019-01-04 Mem oria CANCER CANCER 11-25 16:49:00 l SCREENING- SCREENING- 00:00: rmann Z12.11 Z12.11 00 Active 09/24/2018 [place] I63.9, I63.9, Diagnosis Active 2017-092019-01-10 Nm moria N18.6 N18.6 0 16:23:00 l Active 07:00: Momo 07/16/2018 00 [facility] N18.6 N18.6 Diagnosis Active 2018-03-02 Mem oria Active 02-18 07:38:00 l 02/18/2018 00:00: Luisito GREWAL 00 [facility] N/A N/A Diagnosis Active 2018-03-02 Mem oria Active 02-18 07:38:00 l 02/18/2018 00:00: Luisito walsh 00 [place] EVAL EVAL Diagnosis Active 2018-03-22 Mem oria Active 02-04 11:30:00 l 02/04/2018 00:00: Luisito GREWAL [facility] 00 PA RENAL PA RENAL Diagnosis Active 2018-01-27 Memoria ACCT FOR ACCT FOR 01-27 13:17:00 l F/C NOTES F/C NOTES 08:00: Herm elidia ONLY ONLY 00 Active 01/27/2018 [facility] FALL FALL Diagnosis Active 2018-04-09 Mem oria Active 01-27 14:03:00 l 01/27/2018 00:00: Luisito walsh [address] [facility] N18.16 N18.16 Diagnosis Active 2017-11-14 M ronena Active 10-29 10:52:00 l 10/29/2017 00:00: Luisito walsh [address] [id number]/N [id number]/ Diagnosis Active 2017-06-26 Memoria 18.6 N18.6 9-18 07:13:00 l Active 00:00: Momo 06/16/2017 00 [facility] INTRACRANI INTRACRAN Diagnosis Active 2013-11-25 Memoria AL IAL 11-22 15:29:00 l HEMORRHAGE HEMORRHAGE 00:00: He rmann Active 11/22/2013 [facility] OTHER OTHER Diagnosis Active 2013-11-22 Me moria Active 11-22 13:18:00 l 11/22/2013 00:00: Luisito walsh [address] 719.4 - 719.4 - Diagnosis Active 2013-02-01 Memoria PAIN IN PAIN IN -18 19:45:00 l JOINT JOINT 00:01: Momo Active 00 12/14/2012 OPID [facility] KNEE PAIN KNEE PAIN Diagnosis Active 2012-11-03 Memoria Active 11-03 09:25:00 l 11/03/2012 07:00: Luisito walsh [address] SWOLLEN SWOLLEN Diagnosis Active 2012-02-14 Memoria FACE FACE 4-10 09:39:00 l Active 05:00: Momo 01/07/2012 00 [facility] No known No known Disease Unive rs active active ity of problems problems [facility] End stage End stage Problem Active 2018-04-09 Memoria renal renal 14:34:12 l disease disease Momo (disorder) (disorder) Active Problem 04/09/2018 [facility], [place],[facility], [place] Dependence Dependenc Problem Active 2018-04-09 Memoria on renal e on renal 14:34:12 l dialysis dialysis Luisito walsh (finding) (finding) Active Problem 04/09/2018 [facility], [facility], [place] Knee pain Knee pain Problem Active 2018-04-09 Memoria (finding) (finding) 14:34:12 l Active Momo Problem 04/09/2018 [facility] Group,[facility], [facility], [facility] Asthenia Asthenia Problem Active 2017-09-04 Memoria (finding) (finding) 03:33:54 l Active [place] Problem 09/04/2017 left side Medical Group,[facility], [place] Dependence Dependenc Problem Active 2022-12-16 Memoria on e on 23:09:33 l hemodialys hemodialys He rmann is due to is due to end stage end stage renal renal disease disease (finding) (finding) Active Problem 12/16/2022 [facility] Group,[facility], [facility], [facility] History of History Problem Active 2022-12-16 Memoria adenomatou of 23:09:33 l s polyp of adenomatou He rmann colon s polyp of (situation colon ) (situation ) Active Problem 12/16/2022 [facility], [facility] History of History Problem Active 2022-12-16 Memoria - CVA of - CVA 23:09:33 l (context-d (context-d He rmann ependent ependent category) category) Active Problem 12/16/2022 [facility], [facility] Hypertensi Hypertens Problem Active 2022-12-16 Memoria ve babs 23:09:33 l disorder, disorder, Herm elidia systemic systemic arterial arterial (disorder) (disorder) Active Problem 12/16/2022 [facility] Group,[facility], [facility], [facility] Left Left Problem Active 2022-12-16 Memor ia hemiparesi hemiparesi 23:09:33 l s s Momo (disorder) (disorder) Active Problem 12/16/2022 [facility] Group,[facility], [facility], [facility] Obesity Obesity Problem Active 2022-12-16 Me moria (disorder) (disorder) 23:09:33 l Active [place] Problem 12/16/2022 [facility] Group,[facility], [facility], [place],[facility] OT Diagnosis Active 2022-12-20 Mem oria COMPLICATI COMPLICATI 21:47:00 l ON OF ON OF Momo VASCULAR VASCULAR DIALYSIS DIALYSIS CA CA Active [facility] COMPL [facility] Diagnosis Active 2022-12-04 Memoria OF COMPL OF 08:14:00 l SURGICALLY SURGICALLY He rmelidia CREATED CREATED ARTERIO ARTERIO Active [facility] ADMINISTRT ADMINISTR Diagnosis Active 2013-11-25 Memoria VE ENCOUNT TVE 15:29:00 l NOS ENCOUNT Momo NOS Active [facility] Anemia in Anemia in [facility] chronic 12:05:44 l kidney kidney [place] disease disease 02/19/2018 [facility] Hyperlipid Hyperlipi Problem 2018-02-19 [facility] em[facility], demia, 12:05:44 l unspecifie unspecifie He rmann d d 02/19/2018 [facility] Personal Personal Problem 2018-02-19 Memoria history of history of 12:05:44 l other other [place] infectious infectious and and parasitic parasitic diseases diseases 02/19/2018 [facility] Other Other Problem 2019-03-11 Memor ia speech and speech and 11:15:31 l language language Luisito walsh deficits deficits following following cerebral cerebral infarction infarction 9 [facility] Benign Benign Problem 2019-04-13 [place] neoplasm neoplasm 12:31:49 l of of Momo transverse transverse colon colon 04/13/2019 [place] Polyp of Polyp of Problem 2019-04-13 Memoria colon colon 12:31:49 l 04/13/2019 Luisito n [place] Diverticul Diverticu Problem 2019-04-13 Memoria osis of losis of 12:31:49 l large large Momo intestine intestine without without perforatio perforatio n or n or abscess abscess without without bleeding bleeding 04/13/2019 [place] First First Problem 2019-04-13 Memor ia degree degree 12:31:49 l hemorrhoid hemorrhoid He rmann s s 04/13/2019 [place] Hypertensi Hypertens Problem 2019-04-13 Memoria ve chronic babs 12:31:49 l kidney chronic [place] disease kidney with stage disease 5 chronic with stage kidney 5 chronic disease or kidney end stage disease or renal end stage disease renal disease 04/13/2019 [facility] [place] Hemiplegia Hemiplegi Problem 2019-04-13 Memoria and a and 12:31:49 l hemiparesi hemiparesi He rmann s s following following cerebral cerebral infarction infarction affecting affecting left left non-domina non-domina nt side nt side 04/13/2019 [facility] [place] Obesity, Obesity, Problem 2019-04-13 Memoria unspecifie unspecifie 12:31:49 l d d [place] 04/13/2019 [facility] [place] Gastro-eso Gastro-es Problem 2019-04-13 Memoria phageal ophageal 12:31:49 l reflux reflux Momo disease disease without without esophagiti esophagiti s s 04/13/2019 [place] Dependence Dependenc Problem 2019-04-13 Memoria on renal e on renal 12:31:49 l dialysis dialysis Luisito walsh 04/13/2019 [facility], [facility] [place] Other long Other Problem 2019-04-13 M emoria term group home 12:31:49 l (current) (current) [facility] drug therapy therapy 04/13/2019 [place] Body mass Body mass Problem 2019-04-13 Memoria index index 12:31:49 l (BMI) (BMI) Momo 34.0-34.9, 34.0-34.9, adult adult 04/13/2019 [place] 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 11:27:14 l mellitus mellitus Luisito walsh 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 01/04/2019 [facility] Hypertensi Problem 2019-01-04 M emoria ve heart Hypertensi 11:27:14 l and ve heart Momo chronic and kidney chronic disease kidney without disease heart without failure, heart with stage failure, 5 chronic with stage kidney 5 chronic disease, kidney or end disease, stage or end renal stage disease renal disease 01/04/2019 [facility] Abrasion, Abrasion, Problem 2018-02-06 Memoria left knee, left knee, 01:28:35 l initial initial [place] encounter encounter 02/06/2018 [facility] Fall from Fall from Problem 2018-02-06 Memoria non-moving non-moving 01:28:35 l wheelchair wheelchair He curt , initial , initial encounter encounter 02/06/2018 [facility] Personal Personal Problem 2019-02-14 Memoria history of history of 11:52:48 l transient transient Herm elidia ischemic ischemic attack attack (TIA), and (TIA), and cerebral cerebral infarction infarction without without residual residual deficits deficits 02/14/2019 [facility], [place] HTN - HTN - Problem Resolve 2012-11-05 Mem oria Hypertensi Hypertensi d 14:11:00 l on on [place] Resolved Problem 11/05/2012 [facility] Anemia Anemia Problem Resolve 2022-12-09 Mem oria (disorder) (disorder) d 15:15:22 l Resolved [place] Problem 12/09/2022 [facility], [facility], [facility] Gastroesop Gastroeso Problem Resolve 2022-12-09 Memoria hageal phageal d 15:15:22 l reflux reflux Momo disease disease (disorder) (disorder) Resolved Problem 12/09/2022 [facility], [facility], [facility] Motion Motion Problem Resolve 2022-12-09 Mem oria sickness sickness d 15:15:22 l (disorder) (disorder) He rmann Resolved Problem 12/09/2022 [facility], [facility], 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 Urinary Urinary Problem Resolve 2022-12-09 M emoria tract tract d 15:15:22 l infectious infectious He rmann disease disease (disorder) (disorder) Resolved Problem 12/09/2022 [facility], [facility], [facility] Diabetes Diabetes Problem Resolve 2013-11-28 Memoria mellitus mellitus d 22:32:01 l (disorder) (disorder) He rmann Resolved Problem 11/28/2013 [facility] Cerebrovas Cerebrova Problem Resolve 2013-0 2022-12-09 2022-12-09 Memoria yani scular d 11-23 15:15:22 15:15:22 l accident accident 00:00: Luisito walsh (disorder) (disorder) 00 Resolved 11/23/2013 Problem 12/09/2022 [facility] Group,[facility], [facility], [place],[facility] History of Past Illness Condition Condition Condition Status Onset Resolution Last Treating Co mments Source Name Details Category Date Date Treatment Clinician Date End stage End stage Problem 2018-092019-08-22 2019-08-22 Memoria renal renal 10-20 22:46:11 22:46:11 l disease disease 18:00: Momo 08/20/2019 00 08/22/2019 [facility], [facility], [place] Suicidal Suicidal Problem 2018-092019-08-22 2019-08-22 Memoria ideations ideations 10-20 22:46:11 22:46:11 l 08/20/2019 18:00: Luisito walsh 08/22/2019 00 [place] Encounter Problem 2019-04-13 2019-04-13 Memoria for Encounter 10-02 12:31:49 12:31:49 l screening for 05:06: Momo for screening 02 malignant for neoplasm malignant of colon neoplasm of colon 10/02/2018 04/13/2019 [place] Other Other Problem 2017-092019-03-11 2019-03-11 M emoria symptoms symptoms 10-30 11:15:31 11:15:31 l and signs and signs 11:35: Herm elidia involving involving 10 cognitive cognitive functions functions following following cerebral cerebral infarction infarction 8 03/11/2019 [facility] Hypotensio Hypotensi Problem 2017-092019-02-14 2019-02-14 Mathieu walsh, on, 10-01 11:52:48 11:52:48 l unspecifie unspecifie 04:15: [place] elias d d 02 08/01/2018 02/14/2019 [place] Poisoning Poisoning Problem 2017-092019-02-14 2019-02-14 Memoria by by 0-30 11:52:48 11:52:48 l unspecifie unspecifie 05:00: He curt d drugs, d drugs, 00 medicament medicament s and s and biological biological substances substances , , accidental accidental (unintenti (unintenti onal), onal), initial initial encounter encounter 07/28/2018 02/14/2019 [place] Stenosis Stenosis Problem 2018-04-09 2018-04-09 Memoria of of 01-21 14:34:12 14:34:12 l vascular vascular 03:32: Luisito walsh prosthetic prosthetic 44 devices, devices, implants implants and and grafts, grafts, initial initial encounter encounter 01/21/2018 04/09/2018 [place] Essential Problem 2017-2018-02-27 2018-02-27 Memoria (primary) Essential 02-24 02:54:03 02:54:03 l hypertensi (primary) 05:00: Her bertrand on hypertensi 00 on 02/24/2018 02/27/2018 [place] Pain in Pain in Problem 2018-02-06 2018-02-06 Memoria unspecifie unspecifie 01-27 01:28:35 01:28:35 l d knee d knee 05:00: Momo 01/27/2018 00 02/06/2018 [facility] Unspecifie Unspecifi Problem 2017-05-12 2017-05-12 Memoria d ed 8- 05:31:02 05:31:02 l complicati complicati 05:00: He curt on of on of 00 cardiac cardiac and and vascular vascular prosthetic prosthetic device, device, implant implant and graft, and graft, initial initial encounter encounter 05/09/2017 05/12/2017 [place] Allergies, Adverse Reactions, Alerts Allergy Allergy Status Severity Reaction(s) Onset Inactive Treating Comm ents Source Name Type Date Date Clinician Martín Propensi Active Rash No Univer s h ty to 03-27 allergy ity of Derived adverse 00:00: to iodine [place] reaction 00 per Medical s patient Branch SHELLFIS DRUG Active Rash Univers H INGREDI 03-27 ity of DERIVED 00:00: [place] 00 Medical Branch [facility] shells Active Memori a h h l Momo No Known No Known Active Memori a Medicati Medicati l on on Momo Carmona s s Social History Social Habit Start Date Stop Date Quantity Comments Source Exposure to 2022-11-22 2022-12-02 Not sure [facility] SARS-CoV-2 (event) 00:00:00 11:38:00 Medica l Branch Social History 2018-07-28 2018-07-28 [facility] Prasanna marlow 18:58:22 18:58:22 Sex Ass[birth year] At [birth year] [facility] 00:00:00 00:00:00 Medical Branch Smoking Status Start Date Stop Date Source Tobacco smoking [facility] xa consumption unknown Medical Bran Tobacco smoking status 2022-12-03 03:56:15 2022-12-03 Memor ial Momo 03:56:15 Medications Ordered Filled Start Stop Current Ordering Indication Dosage Frequency Signature Comments Components Source Medication Medication Date Date Medication? Clinician (SIG) Name Name ferrous Yes 325 mg = 1 [place] sulfate 325 3-18 tab, PO, l mg oral 16:56: Daily, # Luisito n enteric 00 30 tab, 0 coated Refill(s), tablet Pharmacy: [id number], 170.18, cm, 12/02/22 20:25:00 [facility]ISTERED [facility], Height, 91.364, kg, 12/02/22 20:25:00 REGISTERED NUR[facility], Weight Vitamin C Yes 500 mg = 1 Me moria 500 mg oral 3-18 tab, PO, l tablet 16:56: Daily, # [place] 00 30 tab, 0 Refill(s), [facility]acy: [id number], 170.18, cm, 12/02/22 20:25:00 REGISTERED NURSE [facility]ST[facility], Height, 91.364, kg, 12/02/22 20:25:00 REGISTERED NURSE [facility]STETR[facility], Weight ferrous Yes 325 mg = 1 [place] sulfate 325 3-18 tab, PO, l mg oral 16:56: Daily, # Luisito n enteric 00 30 tab, 0 coated Refill(s), tablet Pharmacy: [id number], 170.18, cm, 12/02/22 20:25:00 REGISTERED NURSE [facility]ST[facility], Height, 91.364, kg, 12/02/22 20:25:00 REGISTERED NURSE [facility]ST[facility], Weight Vitamin C Yes 500 mg = 1 Me moria 500 mg oral 3-18 tab, PO, l tablet 16:56: Daily, # [place] 00 30 tab, 0 Refill(s), Pharmacy: [id number], 170.18, cm, 12/02/22 20:25:00 REGISTERED NURSE [facility]ST[facility], Height, 91.364, kg, 12/02/22 20:25:00 REGISTERED NURSE [facility]STETR[facility], Weight Tylenol 2022-0 Yes 1 tab, PO, [place] jessi with 3-18 Q6H, PRN l Codeine #3 16:46: Pain, not He rmann oral tablet 00 to exceed 4000 mg acetaminop hen per day, X 4 day, # 20 tab, 0 Refill(s), Pharmacy: [id number], 170.18, cm, 12/02/22 20:25:00 REGISTERED NURSE [facility]STETR[facility], Height, 91.364, kg, 12/02/22 20:25:00 REGISTERED NURSE OBSTETRICS, Weight Tylenol 0 Yes 1 tab, PO, [place] jessi with 3-18 Q6H, PRN l Codeine #3 16:46: Pain, not He rmann oral tablet 00 to exceed 4000 mg acetaminop hen per day, X 4 day, # 20 tab, 0 Refill(s), Pharmacy: [id number], 170.18, cm, 12/02/22 20:25:00 REGISTERED NURSE [facility]STETR[facility], Height, 91.364, kg, 12/02/22 20:25:00 REGISTERED NURSE [facility]STETR[facility], Weight aspirin 81 2022-0 Yes 81 mg = 1 Me moria mg tablet, 3-18 tab, PO, l enteric 16:45: Daily, # Luisito n coated 00 90 tab, 3 Refill(s), Pharmacy: [id number], 170.18, cm, 12/02/22 20:25:00 REGISTERED NURSE [facility]STETR[facility], Height, 91.364, kg, 12/02/22 20:25:00 REGISTERED NURSE [facility]STETR[facility], Weight atorvastati 2022-0 Yes 40 mg = 1 M emoria n 40 mg 3-18 tab, PO, l oral tablet 16:45: Bedtime, # Momo 00 30 tab, 0 Refill(s), Pharmacy: [id number], 170.18, cm, 12/02/22 20:25:00 REGISTERED NURSE OBSTETRICS, Height, 91.364, kg, 12/02/22 20:25:00 REGISTERED NURSE OBSTETRICS, Weight aspirin 81 0 Yes 81 mg = 1 Me moria mg tablet, 3-18 tab, PO, l enteric 16:45: Daily, # Luisito n coated 00 90 tab, 3 Refill(s), Pharmacy: [id number], 170.18, cm, 12/02/22 20:25:00 REGISTERED NURSE OBSTETRICS, Height, 91.364, kg, 12/02/22 20:25:00 REGISTERED NURSE OBSTETRICS, Weight atorvastati Yes 40 mg = 1 M emoria n 40 mg 3-18 tab, PO, l oral tablet 16:45: Bedtime, # [place] 00 30 tab, 0 Refill(s), Pharmacy: [id number], 170.18, cm, 12/02/22 20:25:00 REGISTERED NURSE [facility]STETR[facility], Height, 91.364, kg, 12/02/22 20:25:00 REGISTERED NURSE [facility]STETR[facility], Weight midodrine 5 Yes 10 mg = 2 M emoria mg oral 3-18 tab, PO, l tablet 16:44: Q8Hnow, # Luisito n 00 180 tab, 0 Refill(s), Pharmacy: [id number], 170.18, cm, 12/02/22 20:25:00 REGISTERED NURSE [facility]STETRICS, Height, 91.364, kg, 12/02/22 20:25:00 REGISTERED NURSE OBSTETRICS, Weight midodrine 5 Yes 10 mg = 2 M emoria mg oral 3-18 tab, PO, l tablet 16:44: Q8Hnow, # Luisito n 00 180 tab, 0 Refill(s), Pharmacy: [id number], 170.18, cm, 12/02/22 20:25:00 REGISTERED NURSE [facility]STETR[facility], Height, 91.364, kg, 12/02/22 20:25:00 REGISTERED NURSE OBSTETRICS, Weight Lokelma 10 No Notes: Memor ia g oral 3-12 (Same as: l powder for 20:34: Lokelm a) [place] reconstitut 00 Mix with ion 45 mL water prior to administra tion Lokelma 10 No Notes: Memor ia g oral 3-12 (Same as: l powder for 20:34: Lokelm a) Momo reconstitut 00 Mix with ion 45 mL water prior to administra tion heparin Yes Notes: Memoria 3-10 porcine l 15:00: heparin heparin 0 Yes Notes: Memoria 3-10 porcine l 15:00: heparin Lactated 0 No 1,000 mL, [place] jessi Ringers 3-10 Rate: 125 l Injection 13:24: ml/hr, Luisito n IV 1,000 mL 00 Infuse over: 8 hr, Route: IV, Dosing Weight 91.364 kg, Total Volume: 1,000, Start date: 12/06/22 7:24:00 REGISTERED NURSE [facility]STETRICS, Duration: 30 day, Stop date: 01/05/23 7:23:00 CDT, BSA: 2.1 m2, 0 ANES No 10 mg, Memoria hydrALAZINE 3-10 Route: l 13:24: IVP, [place] 00 Q20Min, Dosing Weight 91.364, kg, PRN Elevated BP, Start date: 12/06/22 7:24:00 REGISTERED NURSE [facility]STETR[facility], Duration: 2 doses or times, Stop date: Limited # of times ANES No 1,000 mg, Memoria acetaminoph 3-10 Route: PO, l en 13:24: Drug form: Momo TAB, ONCE, Dosing Weight 91.364, kg, Start date: 12/06/22 7:24:00 REGISTERED NURSE OBSTETRICS, Stop date: 12/06/22 7:24:00 REGISTERED NURSE OBSTETRICS ANES No 25 Memoria fentaNYL 3-10 microgram, l 13:24: Route: Momo 00 IVP, Q5Min, Dosing Weight 91.364, kg, PRN Pain Score 4-6, Priority: Routine, Start date: 12/06/22 7:24:00 REGISTERED NURSE OBSTETRICS, Duration: 4 doses or times, Stop date: Limited # of times ANES No 0.5 mg, Memoria HYDROmorpho 3-10 Route: l ne 13:24: IVP, [place] 00 Q10Min, Dosing Weight 91.364, kg, PRN Pain Score 7-10, Start date: 12/06/22 7:24:00 REGISTERED NURSE OBSTETRICS, Duration: 4 doses or times, Stop date: Limited # of times ANES No 0.2 mg, Memoria flumazenil 3-10 Route: l 13:24: IVP, PRN, [place] 00 Dosing Weight 91.364, kg, PRN Benzodiaze pine Reversal, Initial dose, Start date: 12/06/22 7:24:00 REGISTERED NURSE OBSTETRICS, Duration: 30 day, Stop date: 01/05/23 8:23:00 CDT ANES 3-0 No 0.4 mg, Memoria naloxone 3-10 Route: l 13:24: IVP, [place] 00 Q2MIN, Dosing Weight 91.364, kg, PRN Narcotic Reversal, Start date: 12/06/22 7:24:00 REGISTERED NURSE OBSTETRICS, Duration: 8 doses or times, Stop date: Limited # of times ANES 3-0 No 12.5 mg, Memoria diphenhydrA 3-10 Route: l MINE 13:24: IVP, Drug form: INJ, Q6H, Dosing Weight 91.364, kg, PRN Itching, Start date: 12/06/22 7:24:00 REGISTERED NURSE OBSTETRICS, Duration: 30 day, Stop date: 01/05/23 7:23:00 CDT ANES 3-0 No 5 mg, Memoria ePHEDrine 3-10 Route: l 13:24: IVP, [place] 00 Q5Min, Dosing Weight 91.364, kg, PRN Low Blood Pressure, Start date: 12/06/22 7:24:00 REGISTERED NURSE OBSTETRICS, Duration: 30 day, Stop date: 01/05/23 8:23:00 CDT ANES 2022-0 No 2.49 mg, Memoria albuterol 3-10 Route: l 0.083% 13:24: NEB, [place] inhalation 00 Q20Min, solution Dosing Weight 91.364, kg, PRN Wheezing, Start date: 12/06/22 7:24:00 REGISTERED NURSE OBSTETRICS, Duration: 30 day, Stop date: 01/05/23 8:23:00 CDT ANES 3-0 No 4 mg, Memoria ondansetron 3-10 Route: l 13:24: IVP, ONCE, [place]o 00 Dosing Weight 91.364, kg, PRN Nausea & Vomiting, Start date: 12/06/22 7:24:00 REGISTERED NURSE OBSTETRICS Lactated 2022-0 No 1,000 mL, [place] jessi Ringers 3-10 Rate: 125 l Injection 13:24: ml/hr, Luisito n IV 1,000 mL 00 Infuse over: 8 hr, Route: IV, Dosing Weight 91.364 kg, Total Volume: 1,000, Start date: 12/06/22 7:24:00 REGISTERED NURSE OBSTETRICS, Duration: 30 day, Stop date: 01/05/23 7:23:00 CDT, BSA: 2.1 m2, 0 ANES 2022-0 No 10 mg, Memoria hydrALAZINE 3-10 Route: l 13:24: IVP, [place] 00 Q20Min, Dosing Weight 91.364, kg, PRN Elevated BP, Start date: 12/06/22 7:24:00 REGISTERED NURSE OBSTETRICS, Duration: 2 doses or times, Stop date: Limited # of times ANES 2022-0 No 1,000 mg, Memoria acetaminoph 3-10 Route: PO, l en 13:24: Drug form: [place] 00 TAB, ONCE, Dosing Weight 91.364, kg, Start date: 12/06/22 7:24:00 REGISTERED NURSE OBSTETRICS, Stop date: 12/06/22 7:24:00 REGISTERED NURSE OBSTETRICS ANES 2022-0 No 25 Memoria fentaNYL 3-10 microgram, l 13:24: Route: [place] 00 IVP, Q5Min, Dosing Weight 91.364, kg, PRN Pain Score 4-6, Priority: Routine, Start date: 12/06/22 7:24:00 REGISTERED NURSE OBSTETRICS, Duration: 4 doses or times, Stop date: Limited # of times ANES 2022-0 No 0.5 mg, Memoria HYDROmorpho 3-10 Route: l ne 13:24: IVP, [place] 00 Q10Min, Dosing Weight 91.364, kg, PRN Pain Score 7-10, Start date: 12/06/22 7:24:00 REGISTERED NURSE OBSTETRICS, Duration: 4 doses or times, Stop date: Limited # of times ANES 2022-0 No 0.2 mg, Memoria flumazenil 3-10 Route: l 13:24: IVP, PRN, [place] 00 Dosing Weight 91.364, kg, PRN Benzodiaze pine Reversal, Initial dose, Start date: 12/06/22 7:24:00 REGISTERED NURSE OBSTETRICS, Duration: 30 day, Stop date: 01/05/23 8:23:00 CDT ANES 2022-0 No 0.4 mg, Memoria naloxone 3-10 Route: l 13:24: IVP, [place] 00 Q2MIN, Dosing Weight 91.364, kg, PRN Narcotic Reversal, Start date: 12/06/22 7:24:00 REGISTERED NURSE OBSTETRICS, Duration: 8 doses or times, Stop date: Limited # of times ANES 2022-0 No 12.5 mg, Memoria diphenhydrA 3-10 Route: l MINE 13:24: IVP, Drug [place] 00 form: INJ, Q6H, Dosing Weight 91.364, kg, PRN Itching, Start date: 12/06/22 7:24:00 REGISTERED NURSE OBSTETRICS, Duration: 30 day, Stop date: 01/05/23 7:23:00 CDT ANES 2022-0 No 5 mg, Memoria ePHEDrine 3-10 Route: l 13:24: IVP, [place] 00 Q5Min, Dosing Weight 91.364, kg, PRN Low Blood Pressure, Start date: 12/06/22 7:24:00 REGISTERED NURSE OBSTETRICS, Duration: 30 day, Stop date: 01/05/23 8:23:00 CDT ANES 2022-0 No 2.49 mg, Memoria albuterol 3-10 Route: l 0.083% 13:24: NEB, [place] inhalation 00 Q20Min, solution Dosing Weight 91.364, kg, PRN Wheezing, Start date: 12/06/22 7:24:00 REGISTERED NURSE OBSTETRICS, Duration: 30 day, Stop date: 01/05/23 8:23:00 CDT ANES 2022-0 No 4 mg, Memoria ondansetron 3-10 Route: l 13:24: IVP, ONCE, Dosing Weight 91.364, kg, PRN Nausea & Vomiting, Start date: 12/06/22 7:24:00 REGISTERED NURSE OBSTETRICS ceFAZolin 2022-0 No Route: IV, Me moria (ANES) 3-10 Drug form: l 13:12: INJ, ONCE, Momo 00 Stop date: 12/06/22 7:12:00 REGISTERED NURSE OBSTETRICS ondansetron 2022-0 No Route: IV, Memoria (ANES) 3-10 Drug form: l 13:12: INJ, ONCE, Momo 00 Stop date: 12/06/22 7:12:00 REGISTERED NURSE OBSTETRICS dexamethaso 0 No Route: IV, Memoria ne (ANES) 3-10 Drug form: l 13:12: INJ, ONCE, Stop date: 12/06/22 7:12:00 REGISTERED NURSE OBSTETRICS phenylephri 2022-0 No Route: IV, Memoria ne (ANES) 3-10 Drug form: l 13:12: INJ, ONCE, Stop date: 12/06/22 7:12:00 REGISTERED NURSE OBSTETRICS fentaNYL 2022-0 No Route: IV, Mem oria (ANES) 3-10 Drug form: l 13:12: INJ, ONCE, Stop date: 12/06/22 7:12:00 REGISTERED NURSE OBSTETRICS propofol 2022-0 No Route: IV, Mem oria (ANES) 3-10 Drug form: l 13:12: INJ, ONCE, Stop date: 12/06/22 7:12:00 REGISTERED NURSE OBSTETRICS lidocaine 2022-0 No Route: IV, Me moria (ANES) 3-10 Drug form: l 13:12: INJ, ONCE, Stop date: 12/06/22 7:12:00 REGISTERED NURSE OBSTETRICS Insulin 2022-0 No Route: IV, Tico jessi regular 3-10 Drug form: l (ANES) 13:12: INJ, ONCE, Stop date: 12/06/22 7:12:00 REGISTERED NURSE OBSTETRICS ceFAZolin 0 No Route: IV, Me moria (ANES) 3-10 Drug form: l 13:12: INJ, ONCE, Stop date: 12/06/22 7:12:00 REGISTERED NURSE OBSTETRICS ondansetron No Route: IV, Memoria (ANES) 3-10 Drug form: l 13:12: INJ, ONCE, Stop date: 12/06/22 7:12:00 REGISTERED NURSE OBSTETRICS dexamethaso 2022-0 No Route: IV, Memoria ne (ANES) 3-10 Drug form: l 13:12: INJ, ONCE, Stop date: 12/06/22 7:12:00 REGISTERED NURSE OBSTETRICS phenylephri 0 No Route: IV, Memoria ne (ANES) 3-10 Drug form: l 13:12: INJ, ONCE, [place] Stop date: 12/06/22 7:12:00 REGISTERED NURSE OBSTETRICS fentaNYL 3-0 No Route: IV, Mem oria (ANES) 3-10 Drug form: l 13:12: INJ, ONCE, Momo Stop date: 12/06/22 7:12:00 REGISTERED NURSE OBSTETRICS propofol 3-0 No Route: IV, Mem oria (ANES) 3-10 Drug form: l 13:12: INJ, ONCE, Momo Stop date: 12/06/22 7:12:00 REGISTERED NURSE OBSTETRICS lidocaine 2022-0 No Route: IV, Me moria (ANES) 3-10 Drug form: l 13:12: INJ, ONCE, [place] Stop date: 12/06/22 7:12:00 REGISTERED NURSE OBSTETRICS Insulin 2022-0 No Route: IV, Tico jessi regular 3-10 Drug form: l (ANES) 13:12: INJ, ONCE, Joanna Stop date: 12/06/22 7:12:00 REGISTERED NURSE OBSTETRICS Sodium 3-0 No Route: IV, Memor ia Chloride 3-10 Total l 0.9% IV 12:29: Volume: Momo (ANES) 500 00 500, Start mL date: 12/06/22 6:29:00 REGISTERED NURSE OBSTETRICS, Stop date: 12/06/22 7:29:00 REGISTERED NURSE OBSTETRICS Dextrose 2022-0 No Route: IV, Mem oria 10% in 3-10 Total l Water IV 12:29: Volume: Luisito n (ANES) 250 00 250, Start mL date: 12/06/22 6:29:00 REGISTERED NURSE OBSTETRICS, Stop date: 12/06/22 7:29:00 REGISTERED NURSE OBSTETRICS Sodium 2023-0 No Route: IV, Memor ia Chloride 3-10 Total l 0.9% IV 12:29: Volume: [place] (ANES) 500 00 500, Start mL date: 12/06/22 6:29:00 REGISTERED NURSE OBSTETRICS, Stop date: 12/06/22 7:29:00 REGISTERED NURSE OBSTETRICS Dextrose 2023-0 No Route: IV, Mem oria 10% in 3-10 Total l Water IV 12:29: Volume: Luisito n (ANES) 250 00 250, Start mL date: 12/06/22 6:29:00 REGISTERED NURSE OBSTETRICS, Stop date: 12/06/22 7:29:00 REGISTERED NURSE OBSTETRICS Lokelma 5 g 2022-0 Yes Notes: Tico jessi oral powder 3-09 (Same as: l for 18:00: Lokelma) Momo reconstitut 00 Mix with ion 45 mL water prior to administra tion Lokelma 5 g 2022-0 Yes Notes: Tico jessi oral powder 3-09 (Same as: l for 18:00: Lokelma) Momo reconstitut 00 Mix with ion 45 mL water prior to administra tion amLODIPine 2022-0 Yes Notes: Memor ia 3- (Same as: l 03:30: Norvasc) [place]o 00 amLODIPine 2022-0 Yes Notes: Memor ia 3-09 (Same as: l 03:30: Norvasc) [place] 00 [place] 5/325 2022-0 Yes Notes: Tico jessi oral tablet 3- (Same as: l 03:23: [place] Momo 00 325/5) Do not exceed 4gm/day of acetaminop hen. [place] 5/325 2022-0 Yes Notes: Tico jessi oral tablet 3-09 (Same as: l 03:23: [place] 00 325/5) Do not exceed 4gm/day of acetaminop hen. amLODIPine 0 No 10 mg, 1 Mem oria 3-08 tab, l 15:00: Route: PO, Drug form: TAB, Daily, Dosing Weight 91.364, kg, Start date: 12/04/22 9:00:00 REGISTERED NURSE OBSTETRICS, Duration: 30 day, Stop date: 01/02/23 9:00:00 CDT amLODIPine 2022-0 No 10 mg, 1 Mem oria 3-08 tab, l 15:00: Route: PO, Drug form: TAB, Daily, Dosing Weight 91.364, kg, Start date: 12/04/22 9:00:00 REGISTERED NURSE OBSTETRICS, Duration: 30 day, Stop date: 01/02/23 9:00:00 CDT ANES 2022-0 No 4 mg, Memoria ondansetron -08 Route: l 00:36: IVP, ONCE, Dosing Weight 91.364, kg, PRN Nausea & Vomiting, Start date: 12/03/22 18:36:00 REGISTERED NURSE OBSTETRICS ANES 2022-0 No 1,000 mg, Memoria acetaminoph 3-08 Route: PO, l en 00:36: Drug form: Momo 00 TAB, ONCE, Dosing Weight 91.364, kg, Start date: 12/03/22 18:36:00 REGISTERED NURSE OBSTETRICS, Stop date: 12/03/22 18:36:00 REGISTERED NURSE OBSTETRICS ANES 2022-0 No 5 mg, Memoria oxyCODONE 5 -08 Route: PO, l mg 00:36: Drug form: Momo immediate 00 TAB, Q4H, release Dosing tablet Weight 91.364, kg, PRN Pain Score 4-6, Start date: 12/03/22 18:36:00 REGISTERED NURSE OBSTETRICS, Duration: 30 day, Stop date: 01/02/23 18:35:00 CDT ANES 2022-0 No 0.5 mg, Memoria HYDROmorpho 12-04 Route: l ne 00:36: IVP, [place] 00 Q10Min, Dosing Weight 91.364, kg, PRN Pain Score 7-10, Start date: 12/03/22 18:36:00 REGISTERED NURSE OBSTETRICS, Duration: 4 doses or times, Stop date: Limited # of times ANES 2022-0 No 0.2 mg, Memoria flumazenil -08 Route: l 00:36: IVP, PRN, [place] 00 Dosing Weight 91.364, kg, PRN Benzodiaze pine Reversal, Initial dose, Start date: 12/03/22 18:36:00 REGISTERED NURSE OBSTETRICS, Duration: 30 day, Stop date: 01/02/23 19:35:00 CDT ANES 2022-0 No 0.4 mg, Memoria naloxone -08 Route: l 00:36: IVP, [place] 00 Q2MIN, Dosing Weight 91.364, kg, PRN Narcotic Reversal, Start date: 12/03/22 18:36:00 REGISTERED NURSE OBSTETRICS, Duration: 8 doses or times, Stop date: Limited # of times ANES 2022-0 No 4 mg, Memoria ondansetron 3-08 Route: l 00:36: IVP, ONCE, [place] 00 Dosing Weight 91.364, kg, PRN Nausea & Vomiting, Start date: 12/03/22 18:36:00 REGISTERED NURSE OBSTETRICS ANES 2022-0 No 1,000 mg, Memoria acetaminoph 3-08 Route: PO, l en 00:36: Drug form: Momo 00 TAB, ONCE, Dosing Weight 91.364, kg, Start date: 12/03/22 18:36:00 REGISTERED NURSE OBSTETRICS, Stop date: 12/03/22 18:36:00 REGISTERED NURSE OBSTETRICS ANES 2022-0 No 5 mg, Memoria oxyCODONE 5 12-04 Route: PO, l mg 00:36: Drug form: [place]o immediate 00 TAB, Q4H, release Dosing tablet Weight 91.364, kg, PRN Pain Score 4-6, Start date: 12/03/22 18:36:00 REGISTERED NURSE OBSTETRICS, Duration: 30 day, Stop date: 01/02/23 18:35:00 CDT ANES 2022-0 No 0.5 mg, Memoria HYDROmorpho 12-04 Route: l ne 00:36: IVP, [place] 00 Q10Min, Dosing Weight 91.364, kg, PRN Pain Score 7-10, Start date: 12/03/22 18:36:00 REGISTERED NURSE OBSTETRICS, Duration: 4 doses or times, Stop date: Limited # of times ANES 2022-0 No 0.2 mg, Memoria flumazenil 12-04 Route: l 00:36: IVP, PRN, [place] 00 Dosing Weight 91.364, kg, PRN Benzodiaze pine Reversal, Initial dose, Start date: 12/03/22 18:36:00 REGISTERED NURSE OBSTETRICS, Duration: 30 day, Stop date: 01/02/23 19:35:00 CDT ANES 2022-0 No 0.4 mg, Memoria naloxone 12-04 Route: l 00:36: IVP, [place] 00 Q2MIN, Dosing Weight 91.364, kg, PRN Narcotic Reversal, Start date: 12/03/22 18:36:00 REGISTERED NURSE OBSTETRICS, Duration: 8 doses or times, Stop date: Limited # of times Sodium 2022-0 No Route: IV, Memor ia Chloride 3-07 Total l 0.9% IV 23:53: Volume: Momo (ANES) 1000 00 1,000, mL Start date: 12/03/22 17:53:00 REGISTERED NURSE OBSTETRICS, Stop date: 12/03/22 18:53:00 REGISTERED NURSE OBSTETRICS Sodium 2022-0 No Route: IV, Memor ia Chloride 3-07 Total l 0.9% IV 23:53: Volume: [place] (ANES) 1000 00 1,000, mL Start date: 12/03/22 17:53:00 REGISTERED NURSE OBSTETRICS, Stop date: 12/03/22 18:53:00 REGISTERED NURSE OBSTETRICS fentaNYL 2022-0 No Route: IV, Mem oria (ANES) 12-03 Drug form: l 23:52: INJ, ONCE, Stop date: 12/03/22 17:52:00 REGISTERED NURSE OBSTETRICS propofol 2022-0 No Route: IV, Mem oria (ANES) 3 Drug form: l 23:52: INJ, ONCE, Stop date: 12/03/22 17:52:00 REGISTERED NURSE OBSTETRICS ceFAZolin 2022-0 No Route: IV, Me moria (ANES) 3- Drug form: l 23:52: INJ, ONCE, Stop date: 12/03/22 17:52:00 REGISTERED NURSE OBSTETRICS ondansetron 2022-0 No Route: IV, Memoria (ANES) 3 Drug form: l 23:52: INJ, ONCE, Stop date: 12/03/22 17:52:00 REGISTERED NURSE OBSTETRICS fentaNYL 2022-0 No Route: IV, Mem oria (ANES) 3 Drug form: l 23:52: INJ, ONCE, Stop date: 12/03/22 17:52:00 REGISTERED NURSE OBSTETRICS propofol 2022-0 No Route: IV, Mem oria (ANES) 3- Drug form: l 23:52: INJ, ONCE, Stop date: 12/03/22 17:52:00 REGISTERED NURSE OBSTETRICS ceFAZolin 2022-0 No Route: IV, Me moria (ANES) 3- Drug form: l 23:52: INJ, ONCE, Stop date: 12/03/22 17:52:00 REGISTERED NURSE OBSTETRICS ondansetron 2022-0 No Route: IV, Memoria (ANES) 3- Drug form: l 23:52: INJ, ONCE, Stop date: 12/03/22 17:52:00 REGISTERED NURSE OBSTETRICS Lactated 2022-0 No 1,000 mL, Tico jessi Ringers 12-03 Rate: 75 l Injection 19:07: ml/hr, Lusiito n IV 1,000 mL 00 Infuse over: 13.3 hr, Route: IV, Dosing Weight 91.364 kg, Total Volume: 1,000, Start date: 12/03/22 13:07:00 REGISTERED NURSE OBSTETRICS, Duration: 1 day, Stop date: 12/04/22 13:06:00 REGISTERED NURSE OBSTETRICS, BSA: 2.1 m2, 0 Sodium 2023-0 No 1,000 mL, Memori a Chloride 3-07 Rate: 75 l 0.9% IV 19:07: ml/hr, Momo 1,000 mL 00 Infuse over: 13.3 hr, Route: IV, Dosing Weight 91.364 kg, Total Volume: 1,000, Start date: 12/03/22 13:07:00 REGISTERED NURSE OBSTETRICS, Duration: 1 day, Stop date: 12/04/22 13:06:00 REGISTERED NURSE OBSTETRICS, BSA: 2.1 m2, 0 Lactated 3-0 No 1,000 mL, Tico jessi Ringers 3-07 Rate: 75 l Injection 19:07: ml/hr, Luisito n IV 1,000 mL 00 Infuse over: 13.3 hr, Route: IV, Dosing Weight 91.364 kg, Total Volume: 1,000, Start date: 12/03/22 13:07:00 REGISTERED NURSE OBSTETRICS, Duration: 1 day, Stop date: 12/04/22 13:06:00 REGISTERED NURSE OBSTETRICS, BSA: 2.1 m2, 0 Sodium 3-0 No 1,000 mL, Memori a Chloride 3-07 Rate: 75 l 0.9% IV 19:07: ml/hr, [place] 1,000 mL 00 Infuse over: 13.3 hr, Route: IV, Dosing Weight 91.364 kg, Total Volume: 1,000, Start date: 12/03/22 13:07:00 REGISTERED NURSE OBSTETRICS, Duration: 1 day, Stop date: 12/04/22 13:06:00 REGISTERED NURSE OBSTETRICS, BSA: 2.1 m2, 0 metoprolol 2022-0 Yes Notes: Memor ia tartrate 3-07 (Same as: l 15:00: Lopressor) [place] metoprolol 2022-0 Yes Notes: Memor ia tartrate 3-07 (Same as: l 15:00: Lopressor) [place] Renvela 2022-0 Yes Notes: Memoria 3-07 Same as: l 14:00: Renvela [place] Renvela 2023-0 Yes Notes: Memoria 3-07 Same as: l 14:00: Renvela D10W 3-0 Yes 250 mL, Memoria (bolus) IV 3-07 999 ml/hr, l 11:40: Route: IV, Drug Form: INJ, Dosing Weight 91.364, kg, PRN, PRN Blood Glucose Results, Start date: 12/03/22 5:40:00 REGISTERED NURSE OBSTETRICS, Duration: 30 day, Stop date: 01/02/23 6:39:00 CDT, Infuse over: 0.3 hr, 0 D10W 3-0 Yes 250 mL, Memoria (bolus) IV 3-07 999 ml/hr, l 11:40: Route: IV, Drug Form: INJ, Dosing Weight 91.364, kg, PRN, PRN Blood Glucose Results, Start date: 12/03/22 5:40:00 REGISTERED NURSE OBSTETRICS, Duration: 30 day, Stop date: 01/02/23 6:39:00 CDT, Infuse over: 0.3 hr, 0 Dextrose 2023-0 No 25 mL, Memoria 50% Syringe 12-03 Route: l (D50W) 10:26: IVP, Dosing Weight 91.364, kg, PRN, PRN Blood Glucose Results, Start date: 12/03/22 4:26:00 REGISTERED NURSE OBSTETRICS, Duration: 30 day, Stop date: 01/02/23 5:25:00 CDT glucagon 2023-0 Yes 1 mg, Memoria 3 Route: IM, l 10:26: Drug form: PDR/INJ, PRN, Dosing Weight 91.364, kg, PRN Blood Glucose Results, Start date: 12/03/22 4:26:00 REGISTERED NURSE OBSTETRICS, Duration: 30 day, Stop date: 01/02/23 5:25:00 CDT, 0 Dextrose 2023-0 No 25 mL, Memoria 50% Syringe 12-03 Route: l (D50W) 10:26: IVP, Momo 00 Dosing Weight 91.364, kg, PRN, PRN Blood Glucose Results, Start date: 12/03/22 4:26:00 REGISTERED NURSE OBSTETRICS, Duration: 30 day, Stop date: 01/02/23 5:25:00 CDT glucagon 2023-0 Yes 1 mg, Memoria 3-07 Route: IM, l 10:26: Drug form: [place] 00 PDR/INJ, PRN, Dosing Weight 91.364, kg, PRN Blood Glucose Results, Start date: 12/03/22 4:26:00 REGISTERED NURSE OBSTETRICS, Duration: 30 day, Stop date: 01/02/23 5:25:00 CDT, 0 sevelamer 0 Yes 800mg Take 800 Uni vers carbonate 6-29 mg by ity of (RENVELA 09:45: mouth. [place] ORAL) [address] [place] [address] metoprolol 0 Yes Take by [facility] ers succinate 6-29 mouth. ity of 25 mg CSpX 09:45: [address] sevelamer Yes 800mg Take 800 Uni vers carbonate 6-29 mg by ity of ([place] 09:45: mouth. [place] ORAL) [address] [place] [address] metoprolol Yes Take by [facility] ers succinate 6-29 mouth. ity of 25 mg CSpX 09:45: [address] propofol 2017-09 No Route: IV, Mem oria (ANES) 2-27 Drug form: l 14:09: INJ, ONCE, Stop date: 09/24/18 8:09:00 REGISTERED NURSE OBSTETRICS propofol 2017-09 No Route: IV, Mem oria (ANES) 2-27 Drug form: l 14:09: INJ, ONCE, Stop date: 09/24/18 8:09:00 REGISTERED NURSE OBSTETRICS Sodium 2017-09 No Route: IV, Memor ia Chloride 2-27 Total l 0.9% IV 13:40: Volume: [place] (ANES) 500 00 500, Start mL date: 09/24/18 7:40:00 REGISTERED NURSE OBSTETRICS, Stop date: 09/24/18 8:40:00 REGISTERED NURSE OBSTETRICS Sodium 2017-09 No Route: IV, Memor ia Chloride 2-27 Total l 0.9% IV 13:40: Volume: Momo (ANES) 500 00 500, Start mL date: 09/24/18 7:40:00 REGISTERED NURSE OBSTETRICS, Stop date: 09/24/18 8:40:00 REGISTERED NURSE OBSTETRICS polyethylen 2017-09 No See Memori a e glycol 1-27 Instructio l 3350 with 20:43: ns, as Luisito n electrolyte 00 directed, s oral # 4,000 powder for mL, 0 solution Refill(s), Pharmacy: [id number], this is the generic of Golytely being used as a bowel prep, not Miralax polyethylen 2017-09 No See Memori a e glycol 1- Instructio l 3350 with 20:43: ns, as Luisito n electrolyte 00 directed, s oral # 4,000 powder for mL, 0 solution Refill(s), Pharmacy: [id number], this is the generic of Golytely being used as a bowel prep, not Miralax losartan 50 2017-09 Yes 50 mg = 1 M emoria mg oral 1-27 tab, PO, l tablet 20:08: Daily, 0 [place] 00 Refill(s) losartan 50 2017-09 Yes 50 mg = 1 M emoria mg oral 1-27 tab, PO, l tablet 20:08: Daily, 0 Momo 00 Refill(s) Saline 2017-09 No Notes: Memoria Flush 0.9% 0-30 (Same as: l 17:40: BD [place] 00 Posiflush) Sodium 2017-09 No 500 mL, Memoria Chloride 0-30 500 ml/hr, l 0.9% 17:40: Infuse [place] (Bolus) IV 00 Over: 1 hr, Route: IV, 500, Drug form: INJ, ONCE, Priority: STAT, Dosing Weight 93.182 kg, Start date: 07/28/18 12:40:00 CDT, Stop date: 07/28/18 12:40:00 CDT Saline 2017-09 No Notes: Memoria Flush 0.9% 0-30 (Same as: l 17:40: BD [place] 00 Posiflush) Sodium 2017-09 No 500 mL, Memoria Chloride 0-30 500 ml/hr, l 0.9% 17:40: Infuse [place] (Bolus) IV 00 Over: 1 hr, Route: IV, 500, Drug form: INJ, ONCE, Priority: STAT, Dosing Weight 93.182 kg, Start date: 07/28/18 12:40:00 CDT, Stop date: 07/28/18 12:40:00 CDT clindamycin No 300 mg = 1 Memoria 300 mg oral 7-17 cap, PO, l capsule 15:00: Q6H, X 10 Joanna nn 00 day, # 40 cap, 0 Refill(s), Pharmacy: [id number] Mupirocin No 1 appl, Memor ia 0.02 MG/MG 7-17 TOP, TID, l Topical 15:00: PRN as Momo Ointment 00 needed, [Bactroban] Apply to affected area(s), X 10 day, # 22 gm, 0 Refill(s), Pharmacy: [id number] clindamycin No 300 mg = 1 Memoria 300 mg oral 7-17 cap, PO, l capsule 15:00: Q6H, X 10 Joanna nn 00 day, # 40 cap, 0 Refill(s), Pharmacy: [facility] Mupirocin No 1 appl, Memor ia 0.02 MG/MG 7-17 TOP, TID, l Topical 15:00: PRN as [place] Ointment 00 needed, [Bactroban] Apply to affected area(s), X 10 day, # 22 gm, 0 Refill(s), Pharmacy: [id number] Cefazolin No Notes: Memori a 03-02 (Same As: l 14:00: Ancef, [place] 00 Kefzol) MEDICATION WASTE Product Size: 1000 mg Product Wasted: ___ mg Cefazolin No Notes: Memori a 604 (Same As: l 14:00: Ancef, Momo 00 Kefzol) MEDICATION WASTE Product Size: 1000 mg Product Wasted: ___ mg Restoril No Notes: Memoria 03-02 (Same As: l 13:48: Restoril) [place] 00 Restoril No Notes: Memoria 04 (Same As: l 13:48: Restoril) Momo metoprolol Yes 50 mg = 1 Me moria tartrate 50 5-30 tab, PO, l mg oral 20:14: Q12H, # [place] tablet 00 180 tab, 1 Refill(s), Pharmacy: [place] [id number] metoprolol Yes 50 mg = 1 Me moria tartrate 50 5-30 tab, PO, l mg oral 20:14: Q12H, # Momo tablet 00 180 tab, 1 Refill(s), Pharmacy: [facility] 546 amLODIPine 0 Yes 10 mg = 1 Me moria 10 mg oral 5-30 tab, PO, l tablet 20:13: Daily, # [place] 00 90 tab, 0 Refill(s), Pharmacy: [facility] 546 amLODIPine Yes 10 mg = 1 Me moria 10 mg oral 5-30 tab, PO, l tablet 20:13: Daily, # Momo 00 90 tab, 0 Refill(s), Pharmacy: [facility] 546 Fentanyl 0 Yes Notes: Memoria 4-05 (Same as: l 15:40: Sublimaze) Momo 00 Preservati ve free. Flumazenil Yes Notes: Memor ia 4-05 (Same as: l 15:40: Romazicon) Naloxone Yes Notes: Memoria 4-05 Same as l 15:40: Narcan Momo 00 Acetaminoph No 1,000 mg, M emoria en 01-01 Route: l 15:40: IVPB, Drug form: INJ, ONCE, Dosing Weight 103.182, kg, PRN Pain Score 1-3, Start date: 01/01/18 10:40:00 CDT Ondansetron No 4 mg, Memor ia 4-05 Route: l 15:40: IVP, ONCE, Dosing Weight 103.182, kg, PRN Nausea & Vomiting, Start date: 01/01/18 10:40:00 CDT Fentanyl Yes Notes: Memoria 4-05 (Same as: l 15:40: Sublimaze) Preservati ve free. Flumazenil Yes Notes: Memor ia 4-05 (Same as: l 15:40: Romazicon) Naloxone Yes Notes: Memoria 4-05 Same as l 15:40: Narcan Momo Acetaminoph 0 No 1,000 mg, M emoria en 05 Route: l 15:40: IVPB, Drug form: INJ, ONCE, Dosing Weight 103.182, kg, PRN Pain Score 1-3, Start date: 01/01/18 10:40:00 CDT Ondansetron 0 No 4 mg, Memor ia 01-01 Route: l 15:40: IVP, ONCE, Dosing Weight 103.182, kg, PRN Nausea & Vomiting, Start date: 01/01/18 10:40:00 CDT protamine 2017-0 No Route: IV, Me moria (ANES) 4- Drug form: l 15:27: INJ, ONCE, Stop date: 01/01/18 10:27:00 CDT ondansetron 0 No Route: IV, Memoria (ANES) 4- Drug form: l 15:27: INJ, ONCE, Stop date: 01/01/18 10:27:00 CDT protamine 0 No Route: IV, Me moria (ANES) 01-01 Drug form: l 15:27: INJ, ONCE, Stop date: 01/01/18 10:27:00 CDT ondansetron 0 No Route: IV, Memoria (ANES) 01-01 Drug form: l 15:27: INJ, ONCE, Stop date: 01/01/18 10:27:00 CDT heparin 2017-0 No Route: IV, Tico jessi (ANES) 4- Drug form: l 14:49: INJ, ONCE, Stop date: 01/01/18 9:49:00 CDT heparin 2017-0 No Route: IV, T[place] jessi (ANES) 4- Drug form: l 14:49: INJ, ONCE, Stop date: 01/01/18 9:49:00 CDT glycopyrrol 2017-0 No Route: IV, Memoria ate (ANES) 4- Drug form: l 14:34: INJ, ONCE, Stop date: 01/01/18 9:34:00 CDT glycopyrrol 2017-0 No Route: IV, Memoria ate (ANES) 4- Drug form: l 14:34: INJ, ONCE, Stop date: 01/01/18 9:34:00 CDT propofol 2018-0 No Route: IV, Mem oria (ANES) 01-01 Drug form: l 14:04: INJ, ONCE, [place] 00 Stop date: 01/01/18 9:04:00 CDT lidocaine 2018-0 No Route: IV, Me moria (ANES) 4-05 Drug form: l 14:04: INJ, ONCE, [place] 00 Stop date: 01/01/18 9:04:00 CDT midazolam 2018-0 No Route: IV, Me moria (ANES) 4-05 Drug form: l 14:04: SOLN, Momo 00 ONCE, Stop date: 01/01/18 9:04:00 CDT fentaNYL 2018-0 No Route: IV, Mem oria (ANES) 4-05 Drug form: l 14:04: INJ, ONCE, Momo Stop date: 01/01/18 9:04:00 CDT propofol 2018-0 No Route: IV, Mem oria (ANES) 4-05 Drug form: l 14:04: INJ, ONCE, [place] Stop date: 01/01/18 9:04:00 CDT lidocaine 2018-0 No Route: IV, Me moria (ANES) 4-05 Drug form: l 14:04: INJ, ONCE, [place] Stop date: 01/01/18 9:04:00 CDT midazolam 2018-0 No Route: IV, Me moria (ANES) 4-05 Drug form: l 14:04: SOLN, [place] 00 ONCE, Stop date: 01/01/18 9:04:00 CDT fentaNYL 2018-0 No Route: IV, Mem oria (ANES) 4-05 Drug form: l 14:04: INJ, ONCE, [place] 00 Stop date: 01/01/18 9:04:00 CDT Renvela 2018-0 Yes Notes: Memoria 4-05 Same as: l 14:00: Renvela [place] 00 multivitami 2018-0 Yes Notes: Tico jessi n 4-05 (Same l 14:00: as:Thera) [place] 00 WASTE: F/P - Black; E - Municipal Trash Bin Take with food. Renvela Yes Notes: Memoria 4-05 Same as: l 14:00: Renvela [place] multivitami 2018-0 Yes Notes: Tico jessi n 4-05 (Same l 14:00: as:Thera) [place] 00 WASTE: F/P - Black; E - Municipal Trash Bin Take with food. phenylephri No Route: IV, Memoria ne (ANES) 4- Drug form: l 100 13:44: INJ, Start [place] microgram 00 date: 01/01/18 8:44:00 CDT, Stop date: 01/01/18 9:44:00 CDT phenylephri No Route: IV, Memoria ne (ANES) 4-05 Drug form: l 100 13:44: INJ, Start [place] microgram date: 01/01/18 8:44:00 CDT, Stop date: 01/01/18 9:44:00 CDT Zofran No Notes: Memoria -05 (Same as: l 13:43: Zofran) MEDICATION WASTE Product Size: 4 mg Product Wasted: ___ mg NS 0.45% IV No 1,000 mL, M emoria 1,000 mL 01-01 Rate: 50 l 13:43: ml/hr, Infuse over: 20 hr, Route: IV, Dosing Weight 103.182 kg, Total Volume: 1,000, Start date: 01/01/18 8:43:00 CDT, Duration: 30 day, Stop date: 01/31/18 8:42:00 CDT, 2.24, m2 Morphine No Notes: Memoria -05 (Same l 13:43: as:MORPhin e Sulfate) Acetaminoph No Notes: Do M emoria en -05 not exceed l 13:43: 4 gm/day. [place] (Same as: Tylenol) acetaminoph No Notes: Do M emoria en-codeine -05 not exceed l #3 13:43: 4gm/day of [place] acetaminop hen. (Same as: Tylenol with Codeine # 3) Acetaminoph No Notes: Tico jessi en 325 MG / - (Same as: l Hydrocodone 13:43: [place] Joanna nn Bitartrate 00 325/5) Do 5 MG Oral not exceed Tablet 4gm/day of acetaminop hen. Zofran No Notes: Memoria -05 (Same as: l 13:43: Zofran) MEDICATION WASTE Product Size: 4 mg Product Wasted: ___ mg NS 0.45% IV No 1,000 mL, M emoria 1,000 mL 01-01 Rate: 50 l 13:43: ml/hr, Infuse over: 20 hr, Route: IV, Dosing Weight 103.182 kg, Total Volume: 1,000, Start date: 01/01/18 8:43:00 CDT, Duration: 30 day, Stop date: 01/31/18 8:42:00 CDT, 2.24, m2 Morphine No Notes: Memoria - (Same l 13:43: as:MORPhin e Sulfate) Acetaminoph No Notes: Do M emoria en - not exceed l 13:43: 4 gm/day. (Same as: Tylenol) acetaminoph No Notes: Do M emoria en-codeine 01-01 not exceed l #3 13:43: 4gm/day of acetaminop hen. (Same as: Tylenol with Codeine # 3) Acetaminoph No Notes: Tico jessi en 325 MG / 01-01 (Same as: l Hydrocodone 13:43: [place] Joanna nn Bitartrate 00 325/5) Do 5 MG Oral not exceed Tablet 4gm/day of acetaminop hen. vancomycin No Route: IV, Jossy emoria (ANES) 01-01 Drug form: l mg 13:39: INJ, Start date: 01/01/18 8:39:00 CDT, Stop date: 01/01/18 9:39:00 CDT vancomycin No Route: IV, Jossy emoria (ANES) 01-01 Drug form: l mg 13:39: INJ, Start date: 01/01/18 8:39:00 CDT, Stop date: 01/01/18 9:39:00 CDT Sodium No Route: IV, Memor ia Chloride 01-01 Total l 0.9% IV 13:31: Volume: [place] (ANES) 500 00 500, Start mL date: 01/01/18 8:31:00 CDT, Stop date: 01/01/18 9:31:00 CDT Sodium No Route: IV, Memor ia Chloride 4-05 Total l 0.9% IV 13:31: Volume: [place] (ANES) 500 00 500, Start mL date: 01/01/18 8:31:00 CDT, Stop date: 01/01/18 9:31:00 CDT Vitamin 2017-0 No 1 tab, Memoria B-100 2-16 Route: PO, l 15:00: Dosing [place] Weight 100.057, kg, Daily, Start date: 11/14/17 9:00:00 REGISTERED NURSE [employer]STETR[employer], Duration: 30 day, Stop date: 12/13/17 9:00:00 CDT Vitamin 2017-0 No 1 tab, Memoria B-100 2-16 Route: PO, l 15:00: Dosing [place] Weight 100.057, kg, Daily, Start date: 11/14/17 9:00:00 REGISTERED NURSE OBSTETRICS, Duration: 30 day, Stop date: 12/13/17 9:00:00 CDT Renvela No Notes: Memoria 2-15 Same as: l 23:00: Renvela Renvela No Notes: Memoria 2-15 Same as: [...] Size: 4 mg Product Wasted: ___ mg Fentanyl No Notes: Memoria 2-15 (Same as: [...] 20:57: INJ, ONCE, Stop date: 11/13/17 14:57:00 REGISTERED NURSE [employer]STETR[employer] ondansetron No Route: IV, Memoria (ANES) 2-15 Drug form: l 20:57: INJ, ONCE, Stop date: 11/13/17 14:57:00 REGISTERED NURSE [employer]STETR[employer] ePHEDrine No Route: IV, Me moria (ANES) 2-15 Drug form: l 20:44: INJ, ONCE, Stop date: 11/13/17 14:44:00 REGISTERED NURSE [employer]STETR[employer] ePHEDrine No Route: IV, Me moria (ANES) 2-15 Drug form: l 20:44: INJ, ONCE, Stop date: 11/13/17 14:44:00 REGISTERED NURSE [employer]STETR[facility] propofol No Route: IV, Mem oria (ANES) 2-15 Drug form: l 20:29: INJ, ONCE, Stop date: 11/13/17 14:29:00 REGISTERED NURSE [employer]STETR[employer] propofol No Route: IV, Mem oria (ANES) 2-15 Drug form: l 20:29: INJ, ONCE, Momo Stop date: 11/13/17 14:29:00 REGISTERED NURSE [employer]STETR[employer] lidocaine 2018-0 No Route: IV, Me moria (ANES) 2-15 Drug form: l 20:24: INJ, ONCE, [place] Stop date: 11/13/17 14:24:00 REGISTERED NURSE OBSTETRICS fentaNYL 2018-0 No Route: IV, Mem oria (ANES) 2-15 Drug form: l 20:24: INJ, ONCE, [place] Stop date: 11/13/17 14:24:00 REGISTERED NURSE [employer]STETR[employer] midazolam 2018-0 No Route: IV, Me moria (ANES) 2-15 Drug form: l 20:24: SOLN, [place] 00 ONCE, Stop date: 11/13/17 14:24:00 REGISTERED NURSE [employer]STETR[employer] lidocaine 2018-0 No Route: IV, Me moria (ANES) 2-15 Drug form: l 20:24: INJ, ONCE, Momo Stop date: 11/13/17 14:24:00 REGISTERED NURSE OBSTETRICS fentaNYL 2018-0 No Route: IV, Mem oria (ANES) 2-15 Drug form: l 20:24: INJ, ONCE, [place] 00 Stop date: 11/13/17 14:24:00 REGISTERED NURSE OBSTETRICS midazolam 2018-0 No Route: IV, Me moria (ANES) 2-15 Drug form: l 20:24: SOLN, [place] 00 ONCE, Stop date: 11/13/17 14:24:00 REGISTERED NURSE [employer]STETR[employer] phenylephri 2018-0 No Route: IV, Memoria ne (ANES) 2-15 Drug form: l 100 20:07: INJ, Start [place] microgram 00 date: 11/13/17 14:07:00 REGISTERED NURSE OBSTETRICS, Stop date: 11/13/17 15:07:00 REGISTERED NURSE OBSTETRICS phenylephri 2018-0 No Route: IV, Memoria ne (ANES) 2-15 Drug form: l 100 20:07: INJ, Start [place] microgram date: 11/13/17 14:07:00 REGISTERED NURSE OBSTETRICS, Stop date: 11/13/17 15:07:00 REGISTERED NURSE [employer]STETR[facility] Cefazolin 2018-0 No Notes: Memori a 2-15 (Same As: l 20:00: Ancef, [place] 00 Kefzol) MEDICATION WASTE Product Size: 1000 mg Product Wasted: ___ mg vancomycin No Route: IV, M emoria (ANES) 11-13 Drug form: l mg 20:00: INJ, Start date: 11/13/17 14:00:00 REGISTERED NURSE OBSTETRICS, Stop date: 11/13/17 15:00:00 REGISTERED NURSE [employer]STETRICS Cefazolin No Notes: Memori a 2-15 (Same As: l 20:00: Ancef, Kefzol) MEDICATION WASTE Product Size: 1000 mg Product Wasted: ___ mg vancomycin No Route: IV, M emoria (ANES) 11-13 Drug form: l mg 20:00: INJ, Start date: 11/13/17 14:00:00 REGISTERED NURSE OBSTETRICS, Stop date: 11/13/17 15:00:00 REGISTERED NURSE OBSTETRICS Restoril No Notes: Memoria 2-15 (Same As: l 19:59: Restoril) Restoril No Notes: Memoria 2-15 (Same As: l 19:59: Restoril) Sodium No Route: IV, Memor ia Chloride 2-15 Total l 0.9% IV 19:54: Volume: [place] (ANES) 500 00 500, Start mL date: 11/13/17 13:54:00 REGISTERED NURSE OBSTETRICS, Stop date: 11/13/17 14:54:00 REGISTERED NURSE OBSTETRICS Sodium No Route: IV, Memor ia Chloride 2-15 Total l 0.9% IV 19:54: Volume: [place] (ANES) 500 00 500, Start mL date: 11/13/17 13:54:00 REGISTERED NURSE OBSTETRICS, Stop date: 11/13/17 14:54:00 REGISTERED NURSE [employer]STETR[employer] acetaminoph No Notes: Do M emoria en-codeine [...] not exceed l Hydrocodone 19:23: 4gm/day of [place] Bitartrate 00 acetaminop 10 MG Oral hen. (Same Tablet as: [place] 325/10) Acetaminoph No Notes: Tico jessi en 325 MG / 2-15 (Same as: l Hydrocodone 19:23: [place] Joanna nn Bitartrate 00 325/5) Do 5 MG Oral not exceed Tablet 4gm/day of acetaminop hen. NS 0.45% IV No 1,000 mL, M emoria 1,000 mL 2-15 Rate: 50 l 19:23: ml/hr, [place] 00 Infuse over: 20 hr, Route: IV, Dosing Weight 100.057 kg, Total Volume: 1,000, Start date: 11/13/17 13:23:00 REGISTERED NURSE OBSTETRICS, Duration: 30 day, Stop date: 12/13/17 13:22:00 CDT, 2.2, m2 Zofran No Notes: Memoria 2-15 (Same as: l 19:23: Zofran) [place] 00 MEDICATION WASTE Product Size: 4 mg Product Wasted: ___ mg acetaminoph No Notes: Do M emoria en-codeine 2-15 not exceed l #3 19:23: 4gm/day of [place] 00 acetaminop hen. (Same as: Tylenol with Codeine # 3) Acetaminoph No Notes: Do M emoria en 2-15 not exceed l 19:23: 4 gm/day. [place] 00 (Same as: Tylenol) Morphine No Notes: Memoria 2-15 (Same l 19:23: as:MORPhin [place] 00 e Sulfate) Acetaminoph No Notes: Do M emoria en 325 MG / 2-15 not exceed l Hydrocodone 19:23: 4gm/day of [place] Bitartrate 00 acetaminop 10 MG Oral hen. (Same Tablet as: [place] 325/10) Acetaminoph No Notes: Tico jessi en 325 MG / 2-15 (Same as: l Hydrocodone 19:23: [place] Joanna nn Bitartrate 00 325/5) Do 5 MG Oral not exceed Tablet 4gm/day of acetaminop hen. NS 0.45% IV No 1,000 mL, M emoria 1,000 mL 2-15 Rate: 50 l 19:23: ml/hr, Infuse over: 20 hr, Route: IV, Dosing Weight 100.057 kg, Total Volume: 1,000, Start date: 11/13/17 13:23:00 REGISTERED NURSE OBSTETRICS, Duration: 30 day, Stop date: 12/13/17 13:22:00 CDT, 2.2, m2 Zofran No Notes: Memoria 2-15 (Same as: l :23: Zofran) MEDICATION WASTE Product Size: 4 mg [...] 1 tablet po if snack., 0 Refill(s) sevelamer Yes 1,600 mg = Me moria [...] - Municipal Trash Bin Take with food. Vitamin No Notes: Memoria B-100 06-27 (Same l 14:00: as:Thera) WASTE: F/P - Black; E - Municipal Trash Bin Take with food. Renvela No Notes: Memoria 06-26 Same as: l 18:00: Renvela Renvela No Notes: Memoria 06-26 Same as: l 18:00: Ofirmev No 1,000 mg, Memor ia 06-26 Route: IV, l 17:24: ONCE, Dosing Weight 100, kg, Start date: 06/26/17 12:24:00 CDT, Stop date: 06/26/17 12:24:00 CDT Ofirmev No 1,000 mg, Memor ia 06-26 Route: IV, l 17:24: ONCE, Dosing Weight 100, kg, Start date: 06/26/17 [...] INJ, ONCE, Stop date: 06/26/17 11:53:00 CDT protamine No Route: IV, Me moria (ANES) 06-26 Drug form: l 16:53: INJ, ONCE, Stop date: 06/26/17 11:53:00 CDT ketOROLAC 0 No IV, ONCE Tico jessi (ANES) 06-26 l 16:53: neostigmine No Route: IV, Memoria (ANES) 06-26 Drug form: l 16:53: INJ, ONCE, Stop date: 06/26/17 11:53:00 CDT glycopyrrol 2016- No Route: IV, Memoria ate (ANES) 06-26 Drug form: l 16:53: INJ, ONCE, [place] 00 Stop date: 06/26/17 11:53:00 CDT heparin 0 No Route: IV, Tico jessi (ANES) 06-26 Drug form: l 16:37: INJ, ONCE, Stop date: 06/26/17 11:37:00 CDT heparin 0 No Route: IV, Tico jessi (ANES) 06-26 Drug form: l 16:37: INJ, ONCE, Stop date: 06/26/17 11:37:00 CDT fentaNYL No Route: IV, Mem oria (ANES) 06-26 Drug form: l 16:17: INJ, ONCE, Stop date: 06/26/17 11:17:00 CDT midazolam 0 No Route: IV, Me moria (ANES) 06-26 Drug form: l 16:17: SOLN, [place] 00 ONCE, Stop date: 06/26/17 11:17:00 CDT fentaNYL 0 No Route: IV, Mem oria (ANES) 06-26 Drug form: l 16:17: INJ, ONCE, Stop date: 06/26/17 11:17:00 CDT midazolam 2016-0 No Route: IV, Me moria (ANES) 06-26 Drug form: l 16:17: SOLN, [place]o ONCE, Stop date: 06/26/17 11:17:00 CDT ePHEDrine 0 No Route: IV, Me moria (ANES) 06-26 Drug form: l 16:12: INJ, ONCE, [place] 00 Stop date: 06/26/17 11:12:00 CDT phenylephri 2016-0 No Route: IV, Memoria ne (ANES) 06-26 Drug form: l 16:12: INJ, ONCE, [place] 00 Stop date: 06/26/17 11:12:00 CDT ePHEDrine 0 No Route: IV, Me moria (ANES) 06-26 Drug form: l 16:12: INJ, ONCE, Stop date: 06/26/17 11:12:00 CDT phenylephri No Route: IV, Memoria ne (ANES) 06-26 Drug form: l 16:12: INJ, ONCE, [place] 00 Stop date: 06/26/17 11:12:00 CDT propofol No Route: IV, Mem oria (ANES) 06-26 Drug form: l 15:57: INJ, ONCE, [place] 00 Stop date: 06/26/17 10:57:00 CDT rocuronium No Route: IV, M emoria (ANES) 06-26 Drug form: l 15:57: INJ, ONCE, [place] 00 Stop date: 06/26/17 10:57:00 CDT propofol No Route: IV, Mem oria (ANES) 06-26 Drug form: l 15:57: INJ, ONCE, Stop date: 06/26/17 10:57:00 CDT rocuronium No Route: IV, M emoria (ANES) 06-26 Drug form: l 15:57: INJ, ONCE, Stop date: 06/26/17 10:57:00 CDT sodium No 1,000 mL, Memori a chloride 06-26 Rate: 50 l 0.45% 1000 15:42: ml/hr, Joanna nn ml INJ 00 Infuse 1,000 mL over: 20 hr, Route: IV, Dosing Weight 100 kg, Total Volume: 1,000, Start date: 06/26/17 10:42:00 CDT, Duration: 30 day, Stop date: 07/26/17 10:41:00 CDT Zofran No Notes: Memoria 06-26 (Same as: l 15:42: Zofran) [place] 00 MEDICATION WASTE Product Size: 4 mg Product Wasted: ___ mg Acetaminoph No Notes: Do M emoria en 06-26 not exceed l 15:42: 4 gm/day. [place] 00 (Same as: Tylenol) Morphine No Notes: Memoria 06-26 (Same l 15:42: as:MORPhin [place] 00 e Sulfate) Acetaminoph No Notes: Do M emoria en 325 MG / 06-26 not exceed l Hydrocodone 15:42: 4gm/day of [place] Bitartrate 00 acetaminop 10 MG Oral hen. (Same Tablet as: [place] 325/10) Acetaminoph No Notes: Tico jessi en 325 MG / 06-26 (Same as: l Hydrocodone 15:42: [place] Joanna nn Bitartrate 00 325/5) Do 5 MG Oral not exceed Tablet 4gm/day of acetaminop hen. sodium No 1,000 mL, Memori a chloride 06-26 Rate: 50 l 0.45% 1000 15:42: ml/hr, Joanna nn ml INJ 00 Infuse 1,000 mL over: 20 hr, Route: IV, Dosing Weight 100 kg, Total Volume: 1,000, Start date: 06/26/17 10:42:00 CDT, Duration: 30 day, Stop date: 07/26/17 10:41:00 CDT Zofran No Notes: Memoria 06-26 (Same as: l 15:42: Zofran) [place] 00 MEDICATION WASTE Product Size: 4 mg Product Wasted: ___ mg Acetaminoph No Notes: Do M emoria en 06-26 not exceed l 15:42: 4 gm/day. [place] 00 (Same as: Tylenol) Morphine No Notes: Memoria 06-26 (Same l 15:42: as:MORPhin [place] 00 e Sulfate) Acetaminoph No Notes: Do M emoria en 325 MG / 06-26 not exceed l Hydrocodone 15:42: 4gm/day of [place] Bitartrate 00 acetaminop 10 MG Oral hen. (Same Tablet as: [place] 325/10) Acetaminoph No Notes: Tico jessi en 325 MG / 06-26 (Same as: l Hydrocodone 15:42: [place] Joanna nn Bitartrate 00 325/5) Do 5 MG Oral not exceed Tablet 4gm/day of acetaminop hen. sodium No Route: IV, Memor ia chloride 06-26 Total l 0.9% 500 ml 15:24: Volume: Her bertrand INJ (ANES) 00 500, Start date: 06/26/17 10:24:00 CDT, Stop date: 06/26/17 11:24:00 CDT sodium No Route: IV, Memor ia chloride 06-26 Total l 0.9% 500 ml 15:24: Volume: Her bertrand INJ (ANES) 00 500, Start date: 06/26/17 10:24:00 CDT, Stop date: 06/26/17 11:24:00 CDT vancomycin No Route: IV, Jossy emoria (ANES) 06-26 Drug form: l (ANES) 15:22: INJ, Start Joanna nn date: 06/26/17 10:22:00 CDT, Stop date: 06/26/17 11:22:00 CDT vancomycin No Route: IV, Jossy emoria (ANES) 06-26 Drug form: l (ANES) 15:22: INJ, Start Joanna nn date: 06/26/17 10:22:00 CDT, Stop date: 06/26/17 11:22:00 CDT Cefazolin No Notes: Memori a 06-26 Same as: l 13:00: Ancef Cefazolin No Notes: Memori a 06-26 Same as: l 13:00: Ancef Hydralazine Yes Notes: Tico jessi 06-26 (Same as: l 12:58: Apresoline ) Push over 5 minutes Hydralazine Yes Notes: Tico jessi 06-26 (Same [...] Memoria 06-26 (Same as: l 12:42: Sublimaze) [place] 00 Preservati ve free. Hydromorpho No Notes: Tico jessi ne 06-26 (Same as: l 12:42: Dilaudid) Metoprolol No Notes: Memor ia 06-26 (Same as: l 12:42: Lopressor) Push over 2 minutes Hydralazine No Notes: Tico jessi 06-26 (Same as: l 12:42: Apresoline [place] 00 ) Push over 5 minutes sodium No 1,000 mL, Memori a chloride 06-26 Rate: 125 l 0.9% 1000 12:42: ml/hr, Luisito n ml INJ 00 Infuse 1,000 mL over: 8 hr, Route: IV, Dosing Weight 100 kg, Total Volume: 1,000, Start date: 06/26/17 7:42:00 CDT, Duration: 30 day, Stop date: 07/26/17 7:41:00 CDT Ondansetron No Notes: Tico jessi 06-26 (Same as: l 12:42: Zofran) MEDICATION WASTE Product Size: 4 mg Product Wasted: ___ mg Flumazenil No Notes: Memor ia 06-26 (Same as: l 12:42: Romazicon) Naloxone No Notes: Memoria 06-26 Same as l 12:42: Narcan Fentanyl No Notes: Memoria 06-26 (Same as: l 12:42: Sublimaze) [place] 00 Preservati ve free. Hydromorpho No Notes: Tico jessi ne 06-26 (Same as: l 12:42: Dilaudid) Metoprolol No Notes: Memor ia 06-26 (Same as: l 12:42: Lopressor) [place] 00 Push over 2 minutes Hydralazine No Notes: Tico jessi 06-26 (Same as: l 12:42: Apresoline [place] 00 ) Push over 5 minutes sodium No 1,000 mL, Memori a chloride 06-26 Rate: 125 l 0.9% 1000 12:42: ml/hr, Luisito n ml INJ 00 Infuse 1,000 mL over: 8 hr, Route: IV, Dosing Weight 100 kg, Total Volume: 1,000, Start date: 06/26/17 7:42:00 CDT, Duration: 30 day, Stop date: 07/26/17 7:41:00 CDT metoprolol Yes 50 mg = 1 Me moria tartrate 50 9-28 tab, PO, l mg oral 12:39: Q12H, 0 [place] tablet 00 Refill(s) metoprolol Yes 50 mg = 1 Me moria tartrate 50 9-28 tab, PO, l mg oral 12:39: Q12H, 0 [place] tablet 00 Refill(s) Restoril No Notes: Memoria 06-26 (Same As: l 12:38: Restoril) Restoril No Notes: Memoria 06-26 (Same As: l 12:38: Restoril) Vitamin Yes 1 tab, PO, Tico jessi B-100 9-20 Daily, 0 l 17:44: Refill(s) [place] 00 Vitamin Yes 1 tab, PO, Tico jessi B-100 9-20 Daily, 0 l 17:44: Refill(s) Losartan No Notes: Memoria 8-18 (Same as: l 14:00: Cozaar) Losartan No Notes: Memoria 8-18 (Same as: l 14:00: Cozaar) Kayexalate No 30 gm, Memor ia 05-15 Route: PO, l 19:14: Drug form: [place] 00 SUSP, ONCE, Dosing Weight 101, kg, Start date: 05/15/17 14:14:00 CDT, Stop date: 05/15/17 14:14:00 CDT Kayexalate No 30 gm, Memor ia 05-15 Route: PO, l 19:14: Drug form: [place] 00 SUSP, ONCE, Dosing Weight 101, kg, Start date: 05/15/17 14:14:00 CDT, Stop date: 05/15/17 14:14:00 CDT Fentanyl No Notes: Memoria 8-17 (Same as: l 18:13: Sublimaze) [place] Preservati ve free. Ondansetron No Notes: Tico jessi 17 (Same as: l 18:13: Zofran) [place] 00 MEDICATION WASTE Product Size: 4 mg Product Wasted: ___ mg Acetaminoph No Notes: Tico jessi en 05-15 Infuse l 18:13: over 15 [place] 00 minutes Do not exceed 4gm/day of acetaminop hen MEDICATION WASTE Product Size: 1000 mg Product Wasted: ___ mg Flumazenil No Notes: Memor ia 05-15 (Same as: l 18:13: Romazicon) [place] 00 Naloxone No Notes: Memoria 05-15 Same as l 18:13: Narcan Fentanyl No Notes: Memoria 05-15 (Same as: l 18:13: Sublimaze) [place] 00 Preservati ve free. Ondansetron No Notes: Tico jessi 05-15 (Same as: l 18:13: Zofran) [place] 00 MEDICATION WASTE Product Size: 4 mg Product Wasted: ___ mg Acetaminoph No Notes: Tico jessi en 05-15 Infuse l 18:13: over 15 [place] 00 minutes Do not exceed 4gm/day of acetaminop hen MEDICATION WASTE Product Size: 1000 mg Product Wasted: ___ mg Flumazenil No Notes: Memor ia 05-15 (Same as: l 18:13: Romazicon) [place] 00 Naloxone No Notes: Memoria 05-15 Same as l 18:13: Narcan Renvela No Notes: Memoria 8 Same as: l 18:00: Renvela [place] Renvela No Notes: Memoria 8 Same as: l 18:00: Renvela ondansetron No Route: IV, Memoria (ANES) 05-15 Drug form: l 17:57: INJ, ONCE, [place] 00 Stop date: 05/15/17 12:57:00 CDT propofol No Route: IV, Mem oria (ANES) 05-15 Drug form: l 17:57: INJ, ONCE, Stop date: 05/15/17 12:57:00 CDT ondansetron No Route: IV, Memoria (ANES) 05-15 [...] INJ, ONCE, Stop date: 05/15/17 12:51:00 CDT phenylephri No Route: IV, Memoria ne (ANES) 05-15 Drug form: l 17:51: INJ, ONCE, Stop date: 05/15/17 12:51:00 CDT ePHEDrine 0 No Route: IV, Me moria (ANES) 05-15 Drug form: l 17:51: INJ, ONCE, Stop date: 05/15/17 12:51:00 CDT heparin No Route: IV, Tico jessi (ANES) 05-15 Drug form: l 17:46: INJ, ONCE, Stop date: 05/15/17 12:46:00 CDT heparin 0 No Route: IV, Tico jessi (ANES) 05-15 Drug form: l 17:46: INJ, ONCE, Stop date: 05/15/17 12:46:00 CDT Zofran 2016-0 No Notes: Memoria 05-15 (Same as: l [...] / 05-15 (Same as: l Hydrocodone 17:43: [place] Joanna nn Bitartrate 00 325/5) Do 5 MG Oral not exceed Tablet 4gm/day of acetaminop hen. Acetaminoph No Notes: Do M emoria en 325 MG / 05-15 not exceed l Hydrocodone 17:43: 4gm/day of Momo Bitartrate 00 acetaminop 10 MG Oral hen. (Same Tablet as: [place] 325/10) Acetaminoph No Notes: Do M emoria en 05-15 not exceed l 17:43: 4 gm/day. [place] 00 (Same as: Tylenol) Zofran No Notes: Memoria 05-15 (Same as: l 17:43: Zofran) [place] 00 MEDICATION WASTE Product Size: 4 mg [...] / 05-15 (Same as: l Hydrocodone 17:43: [place] Joanna nn Bitartrate 00 325/5) Do 5 MG Oral not exceed Tablet 4gm/day of acetaminop hen. Acetaminoph No Notes: Do M emoria en 325 MG / 05-15 not exceed l Hydrocodone 17:43: 4gm/day of Momo Bitartrate 00 acetaminop 10 MG Oral hen. (Same Tablet as: [place] 325/10) Acetaminoph No Notes: Do M emoria en 05-15 not exceed l 17:43: 4 gm/day. [place] 00 (Same as: Tylenol) protamine No Route: IV, Me moria (ANES) 05-15 Drug form: l (ANES) 17:37: INJ, Start Joanna date: 05/15/17 12:37:00 CDT, Stop date: 05/15/17 13:37:00 CDT protamine No Route: IV, Me moria (ANES) 05-15 Drug form: l (ANES) 17:37: INJ, Start Joanna date: 05/15/17 12:37:00 CDT, Stop date: 05/15/17 13:37:00 CDT fentaNYL No Route: IV, Mem oria (ANES) 05-15 Drug form: l 17:36: INJ, ONCE, Stop date: 05/15/17 12:36:00 CDT fentaNYL No Route: IV, Mem oria [...] CDT, Stop date: 05/15/17 13:26:00 CDT ePHEDrine 2016- No Route: IV, Me moria (ANES) 05-15 Drug form: l 17:26: INJ, ONCE, Momo 00 Stop date: 05/15/17 12:26:00 CDT phenylephri 0 No Route: IV, Memoria ne (ANES) 05-15 Drug form: l 17:21: INJ, ONCE, [place] 00 Stop date: 05/15/17 12:21:00 CDT phenylephri 2016-0 No Route: IV, Memoria ne (ANES) 05-15 Drug form: l 17:21: INJ, ONCE, Momo 00 Stop date: 05/15/17 12:21:00 CDT fentaNYL 2017-0 No Route: IV, Mem oria (ANES) 05-15 Drug form: l 17:16: INJ, ONCE, Momo 00 Stop date: 05/15/17 12:16:00 CDT fentaNYL 2017-0 No Route: IV, Mem oria (ANES) 05-15 Drug form: l 17:16: INJ, ONCE, Stop date: 05/15/17 12:16:00 CDT midazolam 2017-0 No Route: IV, Me moria (ANES) 05-15 Drug form: l 17:11: SOLN, Momo 00 ONCE, Stop date: 05/15/17 12:11:00 CDT propofol 2017-0 No Route: IV, Mem oria (ANES) 05-15 Drug form: l 17:11: INJ, ONCE, Momo 00 Stop date: 05/15/17 12:11:00 CDT midazolam 2017-0 No Route: IV, Me moria (ANES) 05-15 Drug form: l 17:11: SOLN, Momo 00 ONCE, Stop date: 05/15/17 12:11:00 CDT propofol 2017-0 No Route: IV, Mem oria (ANES) 05-15 Drug form: l 17:11: INJ, ONCE, [place] 00 Stop date: 05/15/17 12:11:00 CDT vancomycin 2017-0 No Route: IV, M emoria (ANES) 05-15 Drug form: l (ANES) 16:46: INJ, Start Joanna date: 05/15/17 11:46:00 CDT, Stop date: 05/15/17 12:46:00 CDT vancomycin No Route: IV, Jossy dasria (ANES) 05-15 Drug form: l (ANES) 16:46: INJ, Start Joanna nn date: 05/15/17 11:46:00 CDT, Stop date: 05/15/17 12:46:00 CDT sodium No Route: IV, Memor ia chloride 8-17 Total l 0.9% 500 ml 16:39: Volume: Her bertrand INJ (ANES) 00 500, Start date: 05/15/17 11:39:00 CDT, Stop date: 05/15/17 12:39:00 CDT sodium No Route: IV, Memor ia chloride 8-17 Total l 0.9% 500 ml 16:39: Volume: Her bertrand INJ (ANES) 00 500, Start date: 05/15/17 11:39:00 CDT, Stop date: 05/15/17 12:39:00 CDT Restoril No Notes: Memoria 8-17 (Same As: l 13:49: Restoril) Restoril No Notes: Memoria 8-17 (Same As: l 13:49: Restoril) Cefazolin No Notes: Memori a 8-17 Same as: l 13:00: Ancef Cefazolin No Notes: Memori a 8-17 Same as: l 13:00: Ancef [place] 00 sevelamer Yes 800 mg = 1 Me moria carbonate 8-10 tab, PO, l 800 MG Oral 18:46: PRN, with H ermann Tablet 00 snacks [Renvela] sevelamer Yes 800 mg = 1 Me moria carbonate 8-10 tab, PO, l 800 MG Oral 18:46: PRN, with H ermann Tablet 00 snacks [Renvela] heparin No 4,000 Memoria 7-13 unit, 4 l 23:00: mL, Route: Momo 00 IV, Drug form: INJ, ONCALL, Start date: 04/10/17 18:00:00 CDT, Duration: 1 doses or times Sodium 2017-0 No 2,000 mL, Memori a Chloride 7-13 Route: IV, l 0.9% IV 23:00: Start [place] date: 04/10/17 18:00:00 CDT, Duration: 1 doses or times heparin 2017-0 No 4,000 Memoria 7-13 unit, 4 l 23:00: mL, Route: [place] 00 IV, Drug form: INJ, ONCALL, Start date: 04/10/17 18:00:00 CDT, Duration: 1 doses or times Sodium 2017-0 No 2,000 mL, Memori a Chloride 7-13 Route: IV, l 0.9% IV 23:00: Start Momo date: 04/10/17 18:00:00 CDT, Duration: 1 doses or times famotidine 2016- No Notes: Memor ia 7-13 (Same as: l 14:00: Pepcid) Momo 00 Can be dilute in 5-10cc NS IVP: Slow IV push over at least 2 minutes. famotidine 2016- No Notes: Memor ia 7-13 (Same as: l 14:00: Pepcid) Momo 00 Can be dilute in 5-10cc NS IVP: Slow IV push over at least 2 minutes. Streptococc No 0.5 mL, Mem oria us 7-13 Route: IM, l pneumoniae 02:41: Ngoc GARCIA elidia serotype 1 27 Start capsular date: antigen 04/09/17 diphtheria 21:41:27 [id number] CDT, Stop protein date: conjugate 05/09/17 vaccine / 21:36:27 Streptococc CDT us pneumoniae serotype 14 capsular antigen diphtheria [id number] protein conjugate vaccine / Streptococc us pneumoniae serotype 18C capsular antigen d Streptococc 0 No 0.5 mL, Mem oria us 7-13 Route: IM, l pneumoniae 02:41: Ngoc GARCIA elidia serotype 1 27 Start capsular date: antigen 04/09/17 diphtheria 21:41:27 [id number] CDT, Stop protein date: conjugate 05/09/17 vaccine / 21:36:27 Streptococc CDT us pneumoniae serotype 14 capsular antigen diphtheria [id number] protein conjugate vaccine / Streptococc us pneumoniae serotype 18C capsular antigen d heparin 2017-0 No Notes: Memoria 7-13 porcine l 00:10: heparin Momo heparin No Notes: Memoria 7-13 porcine l 00:10: heparin [place] Famotidine No 20 mg, Memor ia 7-13 Route: l 00:08: IVP, BID, Momo 00 Dosing Weight 108, kg, Priority: STAT, Start date: 04/09/17 19:08:00 CDT, Duration: 30 day, Stop date: 05/09/17 17:00:00 CDT Hydralazine No Notes: Tico jessi 7-13 (Same as: l 00:08: Apresoline [place] 00 ) Push over 5 minutes Famotidine No 20 mg, Memor ia 7 Route: l 00:08: IVP, BID, [place] Dosing Weight 108, kg, Priority: STAT, Start date: 04/09/17 19:08:00 CDT, Duration: 30 day, Stop date: 05/09/17 17:00:00 CDT Hydralazine No Notes: Tico jessi 7-13 (Same as: l 00:08: Apresoline [place] ) Push over 5 minutes Acetaminoph No Notes: Tico jessi en 325 MG / 04-10 (Same as: l Hydrocodone 00:06: [place] Joanna nn Bitartrate 00 325/5) Do 5 MG Oral not exceed Tablet 4gm/day of acetaminop hen. Docusate No Notes: Memoria 7-13 (Same as: l 00:06: Colace) [place] (Do Not Crush) Ondansetron No Notes: Tico jessi 7-13 (Same as: l 00:06: Zofran) Momo MEDICATION WASTE Product Size: 4 mg Product Wasted: ___ mg Acetaminoph No Notes: Do M emoria en 7-13 not exceed l 00:06: 4 gm/day. [place] 00 (Same as: Tylenol) Acetaminoph No Notes: Tico jessi en 325 MG / 7-13 (Same as: l Hydrocodone 00:06: [place] Joanna nn Bitartrate 00 325/5) Do 5 MG Oral not exceed Tablet 4gm/day of acetaminop hen. Docusate No Notes: Memoria 04-10 (Same as: l 00:06: Colace) (Do Not Crush) Ondansetron No Notes: Tico jessi 04-10 (Same as: l 00:06: Zofran) MEDICATION WASTE Product Size: 4 mg Product Wasted: ___ mg Acetaminoph No Notes: Do M emoria en 04-10 not exceed l 00:06: 4 gm/day. (Same as: Tylenol) Aspirin 325 No Notes: Tico jessi MG Oral 6-20 Take with l Tablet 14:00: food. Aspirin 325 No Notes: Tico jessi MG Oral 6-20 Take with l Tablet 14:00: food. 24 HR Yes 30 mg = 1 Memoria Nifedipine 6-19 tab, PO, l 30 MG 20:55: Daily, # [place] Extended 00 30 tab, 1 Release Refill(s) Tablet 24 HR Yes 30 mg = 1 Memoria Nifedipine 6-19 tab, PO, l 30 MG 20:55: Daily, # [place] Extended 00 30 tab, 1 Release Refill(s) Tablet 24 HR No 30 mg = 1 Memoria Nifedipine 6-19 tab, PO, l 30 MG 17:05: Daily, # Momo Extended 00 30 tab, 2 Release Refill(s) Tablet 24 HR No 30 mg = 1 Memoria Nifedipine 6-19 tab, PO, l 30 MG 17:05: Daily, # [place] Extended 00 30 tab, 2 Release Refill(s) [...] 6-19 unit, 1 l 13:48: mL, Route: [place] 00 IV Lock, Drug form: INJ, PRN, Dosing Weight 107.273, kg, PRN Dialysis, Start date: 03/17/17 8:48:00 CDT, Duration: 30 day, Stop date: 04/16/17 8:47:00 CDT Sodium 2016- No 2,000 mL, Memori a Chloride 619 8000 l 0.154 13:48: ml/hr, [place] MEQ/ML 00 Infuse Injectable Over: 15 Solution minutes, Route: IV, 2,000, Drug form: INJ, PRN, Dosing Weight 107.273 kg, Start date: 03/17/17 8:48:00 CDT, Duration: 24 hr, Stop date: 03/18/17 8:47:00 CDT, For Use by Dialysis nurse ONLY, PRN Dialysis heparin No 1,000 Memoria 6-19 unit, 1 l 13:48: mL, Route: [place] 00 IV Lock, Drug form: INJ, PRN, Dosing Weight 107.273, kg, PRN Dialysis, Start date: 03/17/17 8:48:00 CDT, Duration: 30 day, Stop date: 04/16/17 8:47:00 CDT Losartan 2017- No Notes: Memoria 6-17 (Same as: l 14:00: Cozaar) Losartan 2017-0 No Notes: Memoria 6-17 (Same as: l 14:00: Cozaar) metoprolol Yes 50 mg = 1 Me moria tartrate 50 6-16 tab, PO, l mg oral 18:20: Q12H, # 60 Herm elidia tablet 00 tab, 1 Refill(s) metoprolol 0 Yes 50 mg = 1 Me moria tartrate 50 6-16 tab, PO, l mg oral 18:20: Q12H, # 60 Herm elidia tablet 00 tab, 1 Refill(s) heparin No 4,100 Memoria 6-16 unit, 4.1 l 13:47: mL, Route: [place] 00 IV, Drug form: INJ, ONCE, Start date: 03/14/17 8:47:00 CDT, Stop date: 03/14/17 8:47:00 CDT heparin 2017-0 No 4,100 Memoria 6-16 unit, 4.1 l 13:47: mL, Route: [place] 00 IV, Drug form: INJ, ONCE, Start date: 03/14/17 8:47:00 CDT, Stop date: 03/14/17 8:47:00 CDT sodium 2017-0 No 1,000 mL, Memori a chloride 6-16 Rate: For l 0.9% 1000 13:44: HD Use, Joanna nn ml INJ 00 Route: IV, 1,000 mL Dosing Weight 107.273 kg, Total Volume: 1,000, Start date: 03/14/17 8:44:00 CDT, Stop date: 03/14/17 23:59:00 CDT sodium 2017-0 No 1,000 mL, Memori a chloride 6-16 Rate: For l 0.9% 1000 13:44: HD Use, Joanna nn ml INJ 00 Route: IV, 1,000 mL Dosing Weight 107.273 kg, Total Volume: 1,000, Start date: 03/14/17 8:44:00 CDT, Stop date: 03/14/17 23:59:00 CDT Sodium 2017-0 No IV, 2000 Memoria Chloride 6-15 ml/hr, l 0.9% IV 00:34: PRN, PRN Luisito n 00 Dialysis, Start date: 03/12/17 19:34:00 CDT, 2,000 ml Sodium 2017-0 No IV, 2000 Memoria Chloride 6-15 ml/hr, l 0.9% IV 00:34: PRN, PRN Luisito n 00 Dialysis, Start date: 03/12/17 19:34:00 CDT, 2,000 ml Sodium 2017-0 No 2,000 ml, Memori a Chloride 6-14 Route: IV, l 0.0769 23:02: Drug Form: Joanna nn MEQ/ML 00 SOLN, Irrigation Dosing Solution Weight 107.273, kg, PRN, PRN Dialysis, Start date: 03/12/17 18:02:00 CDT, Duration: 30 day, Stop date: 04/11/17 18:01:00 CDT Sodium 2017-0 No 2,000 ml, Memori a Chloride 6-14 Route: IV, l 0.0769 23:02: Drug Form: Joanna nn MEQ/ML 00 SOLN, Irrigation Dosing Solution Weight 107.273, kg, PRN, PRN Dialysis, Start date: 03/12/17 18:02:00 CDT, Duration: 30 day, Stop date: 04/11/17 18:01:00 CDT heparin No 10,000 Memoria 6-14 unit, 10 l 22:55: mL, Route: [place] 00 INJ, Drug form: INJ, PRN, Dosing Weight 107.273, kg, PRN Dialysis, Start date: 03/12/17 17:55:00 CDT, Duration: 30 day, Stop date: 04/11/17 17:54:00 CDT heparin No 10,000 Memoria 6-14 unit, 10 l 22:55: mL, Route: [place] 00 INJ, Drug form: INJ, PRN, Dosing Weight 107.273, kg, PRN Dialysis, Start date: 03/12/17 17:55:00 CDT, Duration: 30 day, Stop date: 04/11/17 17:54:00 CDT Nifedical No Notes: Memori a XL 6-13 (Same as: l 23:56: Adalat CC, Momo 00 Procardia XL) Give on empty stomach. Take 1 hour before or 2 hours after meal; "Avoid grapefruit and grapefruit juice". Do not crush Nifedical No Notes: Memori a XL 6-13 (Same as: l 23:56: Adalat CC, Momo 00 Procardia XL) Give on empty stomach. Take 1 hour before or 2 hours after meal; "Avoid grapefruit and grapefruit juice". Do not crush Protonix No Notes: Memoria 6-13 Tablet l 12:30: should not [place] 00 be chewed or crushed. (Same as: Protonix) Protonix No Notes: Memoria 6-13 Tablet l 12:30: should not Momo 00 be chewed or crushed. (Same as: Protonix) Hydralazine No Notes: Tico jessi 6-13 (Same as: l 02:05: Apresoline Momo 00 ) Push over 5 minutes Hydralazine No Notes: Tico jessi 6-13 (Same as: l 02:05: Apresoline [place] 00 ) Push over 5 minutes metoprolol No Notes: Memor ia tartrate -12 (Same as: l 23:59: Lopressor) Momo 00 metoprolol No Notes: Memor ia tartrate 6-12 (Same as: l 23:59: Lopressor) [place] 00 Sodium No 1,000 mL, Memori a Chloride -12 Rate: 125 l 0.0769 23:57: ml/hr, [place] MEQ/ML 00 Infuse Injectable over: 8 Solution hr, Route: IV, Dosing Weight 102.955 kg, Total Volume: 1,000, Start date: 03/10/17 18:57:00 CDT, Duration: 30 day, Stop date: 04/09/17 18:56:00 CDT Nitroglycer No Notes: Tico jessi in 03-10 (Same l 23:57: as:Nitroqu [place] 00 ick, Nitrostat) "Do Not Crush" Sublingual tablet Hydralazine No Notes: Tico jessi -12 (Same as: l 23:57: Apresoline ) Push over 5 minutes Albuterol No Notes: Memori a 0.833 MG/ML - (Same as: l / 23:57: Duoneb) [place] Ipratropium 00 [place] 0.167 MG/ML Inhalant Solution [DuoNeb] Saline No Notes: Memoria Flush 0.9% - (Same as: l 23:57: BD [place] 00 Posiflush) Acetaminoph No Notes: Tico jessi en 325 MG / 12 (Same as: l Hydrocodone 23:57: [place] Joanna nn Bitartrate 00 325/5) Do 5 MG Oral not exceed Tablet 4gm/day of acetaminop hen. Acetaminoph No Notes: Do M emoria en -12 not exceed l 23:57: 4 gm/day. Momo 00 (Same as: Tylenol) Morphine No Notes: Memoria 6-12 (Same l 23:57: as:MORPhin [place] 00 e Sulfate) Ondansetron No Notes: Tico jessi -12 (Same as: l 23:57: Zofran) Momo 00 MEDICATION WASTE Product Size: 4 mg Product Wasted: ___ mg Sodium No 1,000 mL, Memori a Chloride 03-10 Rate: 125 l 0.0769 23:57: ml/hr, [place] MEQ/ML 00 Infuse Injectable over: 8 Solution hr, Route: IV, Dosing Weight 102.955 kg, Total Volume: 1,000, Start date: 03/10/17 18:57:00 CDT, Duration: 30 day, Stop date: 04/09/17 18:56:00 CDT Nitroglycer No Notes: Tico jessi in 03-10 (Same l 23:57: as:Nitroqu [place] 00 ick, Nitrostat) "Do Not Crush" Sublingual tablet Hydralazine No Notes: Tico jessi - (Same as: l 23:57: Apresoline [place] 00 ) Push over 5 minutes Albuterol No Notes: Memori a 0.833 MG/ML 03-10 (Same as: l / 23:57: Duoneb) [place] Ipratropium 00 [place] 0.167 MG/ML Inhalant Solution [DuoNeb] Saline No Notes: Memoria Flush 0.9% - (Same as: l 23:57: BD [place] 00 Posiflush) Acetaminoph No Notes: Tico jessi en 325 MG / 12 (Same as: l Hydrocodone 23:57: [place] Joanna nn Bitartrate 00 325/5) Do 5 MG Oral not exceed Tablet 4gm/day of acetaminop hen. Acetaminoph No Notes: Do M emoria en -12 not exceed l 23:57: 4 gm/day. Momo 00 (Same as: Tylenol) Morphine No Notes: Memoria 6-12 (Same l 23:57: as:MORPhin [place]o 00 e Sulfate) Ondansetron No Notes: Tico jessi -12 (Same as: l 23:57: Zofran) Momo 00 MEDICATION WASTE Product Size: 4 mg Product Wasted: ___ mg Rocephin No 1 gm, Memoria 6-12 Route: l 23:06: IVPB, Drug [place] form: PDR/INJ, ONCE, Dosing Weight 102.955, kg, Priority: STAT, Start date: 03/10/17 18:06:00 CDT, Duration: 1 doses or times, Stop date: 03/10/17 18:06:00 CDT, ABX Indication : Urinary Tract Infection Rocephin No 1 gm, Memoria 6-12 Route: l 23:06: IVPB, Drug [place] 00 form: PDR/INJ, ONCE, Dosing Weight 102.955, kg, Priority: STAT, Start date: 03/10/17 18:06:00 CDT, Duration: 1 doses or times, Stop date: 03/10/17 18:06:00 CDT, ABX Indication : Urinary Tract Infection Saline No Notes: Memoria Flush 0.9% 6-12 (Same as: l 21:57: BD Momo Posiflush) Saline No Notes: Memoria Flush 0.9% 6-12 (Same as: l 21:57: BD Momo Posiflush) [...] Acid No 1 mg, 1 Tico jessi 3-01 tab, l 15:00: Route: PO, [place] 00 Drug form: TAB, Daily, Dosing Weight 87.7, kg, Start date: 11/27/13 9:00:00, Duration: 30 day, Stop date: 12/26/13 9:00:00([facility] as: Folvite) Thiamine No 100 mg, 1 Tico jessi 3-01 tab, l 15:00: Route: PO, [place] 00 Drug form: TAB, Daily, Dosing Weight 87.7, kg, Start date: 11/27/13 9:00:00, Duration: 30 day, Stop date: 12/26/13 9:00:00([facility] As: Vitamin B1) Ascorbic No 1 tab, Memoria Acid / 3 Route: PO, l Biotin / 15:00: Drug Form: Her bertrand Folic Acid 00 TAB, / Niacin / Dosing pantothenat Weight e / 87.7, kg, pyridoxine Daily, / Start Riboflavin date: / Thiamine 11/27/13 / Vitamin B 9:00:00, 12 Duration: 30 day, Stop date: 12/26/13 9:00:00Giv e with food. (Same As : Therapeuti c multivitam ins) Folic Acid No 1 mg, 1 Tico jessi 3-01 tab, l 15:00: Route: PO, Momo 00 Drug form: TAB, Daily, Dosing Weight 87.7, kg, Start date: 11/27/13 9:00:00, Duration: 30 day, Stop date: 12/26/13 9:00:00([facility] as: Folvite) Thiamine No 100 mg, 1 Tico jessi 3-01 tab, l 15:00: Route: PO, Momo 00 Drug form: TAB, Daily, Dosing Weight 87.7, kg, Start date: 11/27/13 9:00:00, Duration: 30 day, Stop date: 12/26/13 9:00:00([facility] As: Vitamin B1) thiamine Yes 100 mg = 1 Mem oria 100 mg oral 2-28 tab, PO, l tablet 19:21: Daily, # [place] 00 30 tab, 0 Refill(s) Multiple Yes [...] tab, PO, l Tablet 19:21: Daily, # Momo 00 30 tab, 0 Refill(s) amLODIPine Yes 10 mg = 2 Me moria 5 mg oral 2-28 tab, PO, l tablet 19:21: Daily, # [place] 00 30 tab, 0 Refill(s) Acetaminoph Yes 1 tab, PO, Memoria en 325 MG / 2-28 Q6H, Pain, l Hydrocodone 19:21: # 30 tab, H ermann Bitartrate 00 0 7.5 MG Oral Refill(s) Tablet [[place] 7.5/325] thiamine Yes 100 mg = 1 Mem oria 100 mg oral 2-28 tab, PO, l tablet 19:21: Daily, # Momo 00 30 tab, 0 Refill(s) Multiple Yes 1 tab, PO, Mem oria Vitamins 2- Daily, # l oral tablet 19:21: 30 tab, 0 H ermann 00 Refill(s) metoprolol Yes 50 mg = 1 Me moria tartrate 50 2-28 tab, PO, l mg oral 19:21: Q12H, # 60 Herm elidia tablet 00 tab, 0 Refill(s) Folic Acid Yes 1 mg = 1 Mem oria 1 MG Oral 2-28 tab, PO, l Tablet 19:21: Daily, # Momo 00 30 tab, 0 Refill(s) amLODIPine Yes 10 mg = 2 Me moria 5 mg oral 2-28 tab, PO, l tablet 19:21: Daily, # [place] 00 30 tab, 0 Refill(s) Acetaminoph Yes 1 tab, PO, Memoria en 325 MG / 2-28 Q6H, Pain, l Hydrocodone 19:21: # 30 tab, H ermann Bitartrate 00 0 7.5 MG Oral Refill(s) Tablet [[place] 7.5/325] Acetaminoph No 1 tab, Tico jessi en 325 MG / 2-28 Route: PO, l Hydrocodone 19:19: Drug Form: [place] Bitartrate 00 TAB, 7.5 MG Oral Dosing Tablet Weight [[place] 87.7, kg, 7.5/325] Q6H, PRN Pain, Start date: 11/26/13 13:19:00, Duration: 30 day, Stop date: 12/26/13 13:18:00Sa me as [place] 325-7.5mg Do not exceed 4gm/day of acetaminop hen. Acetaminoph No 1 tab, Tico jessi en 325 MG / 11-26 Route: PO, l Hydrocodone 19:19: Drug Form: [place] Bitartrate 00 TAB, 7.5 MG Oral Dosing Tablet Weight [[place] 87.7, kg, 7.5/325] Q6H, PRN Pain, Start date: 11/26/13 13:19:00, Duration: 30 day, Stop date: 12/26/13 13:18:00Sa me as [place] 325-7.5mg Do not exceed 4gm/day of acetaminop hen. Norvasc No 10 mg, 2 Memori a 2-26 tab, l 21:25: Route: PO, Momo 00 Drug form: TAB, Daily, Dosing Weight 87.7, kg, Priority: NOW, Start date: 11/24/13 15:25:00, Duration: 30 day, Stop date: 12/24/13 9:00:00(Sa me as: Norvasc) Norvasc No 10 mg, 2 Memori a 2-26 tab, l 21:25: Route: PO, [place] 00 Drug form: TAB, Daily, Dosing Weight 87.7, kg, Priority: NOW, Start date: 11/24/13 15:25:00, Duration: 30 day, Stop date: 12/24/13 9:00:00(Sa me as: Norvasc) Ceftriaxone No 1 gm, Memor ia 11-24 Route: IV, l 10:07: ONCE, Dosing Weight 87.7, kg, Priority: STAT, Start date: 11/24/13 4:07:00, Stop date: 11/24/13 4:07:00(Sa me As: Rocephin). Use with 100ml NS mini-bag PLUS and infuse over 30 min Ceftriaxone No 1 gm, Memor ia 11-24 Route: IV, l 10:07: ONCE, Dosing Weight 87.7, kg, Priority: STAT, Start date: 11/24/13 4:07:00, Stop date: 11/24/13 4:07:00(Sa me As: Rocephin). Use with 100ml NS mini-bag PLUS and infuse over 30 min Vancomycin 2013-0 No 1 gm, 200 Me moria 2-26 mL, Route: l 10:06: IV, Drug [place] 00 form: INJ, ONCE, Dosing Weight 87.7, kg, Priority: STAT, Start date: 11/24/13 4:06:00, Stop date: 11/24/13 4:06:00 Tylenol 2013-0 No 650 mg, 2 Memor ia 2-26 tab, l 10:06: Route: NG, Momo 00 Drug form: TAB, Q4H, Dosing Weight 87.7, kg, PRN as needed for fever, Start date: 11/24/13 4:06:00, Duration: 30 day, Stop date: 12/24/13 4:05:00Do not exceed 4 gm/day. (Same as: Tylenol) Vancomycin 2013-0 No 1 gm, 200 Me moria 2-26 mL, Route: l 10:06: IV, Drug Momo 00 form: INJ, ONCE, Dosing Weight 87.7, kg, Priority: STAT, Start date: 11/24/13 4:06:00, Stop date: 11/24/13 4:06:00 Tylenol 2013-0 No 650 mg, 2 Memor ia 2-26 tab, l 10:06: Route: NG, Momo 00 Drug form: TAB, Q4H, Dosing Weight 87.7, kg, PRN as needed for fever, Start date: 11/24/13 4:06:00, Duration: 30 day, Stop date: 12/24/13 4:05:00Do not exceed 4 gm/day. (Same as: Tylenol) Lopressor 2013-0 No 50 mg, 1 Tico jessi 2-26 tab, l 03:00: Route: PO, Momo 00 Drug form: TAB, Q12H, Dosing Weight 87.7, kg, Start date: 11/23/13 21:00:00, Stop date: 12/23/13 9:00:00(Sa me as: Lopressor) Lopressor 2013-0 No 50 mg, 1 Tico jessi 2-26 tab, l 03:00: Route: PO, Momo 00 Drug form: TAB, Q12H, Dosing Weight 87.7, kg, Start date: 11/23/13 21:00:00, Stop date: 12/23/13 9:00:00(Sa me as: Lopressor) pantoprazol 2013- No 40 mg, Tico jessi e 2-25 Route: l 15:00: IVP, [place] Daily, Dosing Weight 90.909, kg, Start date: 11/23/13 9:00:00, Duration: 30 day, Stop date: 12/22/13 9:00:00For IV push reconstitu te with 10 ml 0.9% sodium chloride and push over 2 minutes. (Same as: Protonix) pantoprazol 2013- No 40 mg, Tico jessi e 2-25 Route: l 15:00: IVP, [place] Daily, Dosing Weight 90.909, kg, Start date: 11/23/13 9:00:00, Duration: 30 day, Stop date: 12/22/13 9:00:00For IV push reconstitu te with 10 ml 0.9% sodium chloride and push over 2 minutes. (Same as: Protonix) Saline 2013- No 5 ml, Memoria Flush 0.9% 2-25 Route: l 03:00: IVP, Drug Form: INJ, Dosing Weight 90.909, kg, Q12H, Start date: 11/22/13 21:00:00, Duration: 30 day, Stop date: 12/22/13 9:00:00(Sa me as: BD Posiflush) Docusate No 100 mg, 10 Mem oria 2-25 mL, Route: l 03:00: PO, Drug form: LIQ, Q12H, Dosing Weight 90.909, kg, Start date: 11/22/13 21:00:00, Stop date: 12/22/13 9:00:00(Sa me as: Colace) Saline 2013-0 No 5 ml, Memoria Flush 0.9% 2-25 Route: l 03:00: IVP, Drug Form: INJ, Dosing Weight 90.909, kg, Q12H, Start date: 11/22/13 21:00:00, Duration: 30 day, Stop date: 12/22/13 9:00:00(Sa me as: BD Posiflush) Docusate 2014-0 No 100 mg, 10 Mem oria 2-25 mL, Route: l 03:00: PO, Drug Momo 00 form: LIQ, Q12H, Dosing Weight 90.909, kg, Start date: 11/22/13 21:00:00, Stop date: 12/22/13 9:00:00(Sa me as: Colace) Sodium 2013-0 No 1,000 mL, Memori a Chloride 2-24 Rate: 75 l 0.9% IV 22:38: ml/hr, [place] 1,000 mL 00 Infuse over: 13.3 hr, Route: IV, Dosing Weight 87.7 kg, Total Volume: 1,000, Start date: 11/22/13 16:38:00, Duration: 3 day, Stop date: 11/25/13 16:37:00 Sodium 2014-0 No 1,000 mL, Memori a Chloride 2-24 Rate: 75 l 0.9% IV 22:38: ml/hr, [place] 1,000 mL 00 Infuse over: 13.3 hr, Route: IV, Dosing Weight 87.7 kg, Total Volume: 1,000, Start date: 11/22/13 16:38:00, Duration: 3 day, Stop date: 11/25/13 16:37:00 Sodium 2014-0 No 1,000 mL, Memori a Chloride 2-24 Rate: 75 l 0.154 22:08: ml/hr, Momo MEQ/ML 00 Infuse Injectable over: 13.5 Solution hr, Route: IV, Dosing Weight 87.7 kg, Total Volume: 1,011.2, Start date: 11/22/13 16:08:00, Duration: 3 day, Stop date: 11/25/13 16:07:00 Sodium 2014-0 No 1,000 mL, Memori a Chloride 2-24 Rate: 75 l 0.154 22:08: ml/hr, [place] MEQ/ML 00 Infuse Injectable over: 13.5 Solution hr, Route: IV, Dosing Weight 87.7 kg, Total Volume: 1,011.2, Start date: 11/22/13 16:08:00, Duration: 3 day, Stop date: 11/25/13 16:07:00 Ativan 2014-0 No 1 mg, 0.5 Memori a 2-24 mL, Route: l 22:05: IVP, Drug Momo 00 form: INJ, Q3H, Dosing Weight 87.7, kg, PRN as needed for anxiety, Start date: 11/22/13 16:05:00, Duration: 30 day, Stop date: 12/22/13 16:04:00(S anthony as: Ativan) Morphine 2014-0 No 2 mg, 1 Memori a 2-24 mL, Route: l 22:05: IVP, Drug Momo 00 form: INJ, Q2H, Dosing Weight 87.7, kg, PRN Pain, Start date: 11/22/13 16:05:00, Duration: 30 day, Stop date: 12/22/13 16:04:00(S anthony as:MORPhin e Sulfate) Zofran 2014-0 No 4 mg, 2 Memoria 2-24 mL, Route: l 22:05: IV, Drug [place] 00 form: INJ, Q8H, Dosing Weight 87.7, kg, PRN Nausea, Start date: 11/22/13 16:05:00, Duration: 30 day, Stop date: 12/22/13 17:04:00(S anthony as: Zofran) Ativan 2014-0 No 1 mg, 0.5 Memori a 2-24 mL, Route: l 22:05: IVP, Drug Momo 00 form: INJ, Q3H, Dosing Weight 87.7, kg, PRN as needed for anxiety, Start date: 11/22/13 16:05:00, Duration: 30 day, Stop date: 12/22/13 16:04:00(S anthony as: Ativan) Morphine 2014-0 No 2 mg, 1 Memori a 2-24 mL, Route: l 22:05: IVP, Drug [place] 00 form: INJ, Q2H, Dosing Weight 87.7, kg, PRN Pain, Start date: 11/22/13 16:05:00, Duration: 30 day, Stop date: 12/22/13 16:04:00(S anthony as:MORPhin e Sulfate) Zofran 2014-0 No 4 mg, 2 Memoria 2-24 mL, [...] 2-24 Route: PO, l 21:21: Drug Form: [place] 00 SUSP, Dosing Weight 90.909, kg, BID, PRN Constipati on, Start date: 11/22/13 15:21:00, Duration: 30 day, Stop date: 12/22/13 15:20:00(S anthony as: Milk of Magnesia, MOM) Saline 2013-0 No 5 ml, Memoria Flush 0.9% 2-24 Route: l 21:21: IVP, Drug Form: INJ, Dosing Weight 90.909, kg, PRN, PRN Line Flush, Start date: 11/22/13 15:21:00, Duration: 30 day, Stop date: 12/22/13 16:20:00(S anthony as: BD Posiflush) Nicardipine 2014-0 No 40 mg, 200 Memoria 2-24 mL, Rate: l 21:21: Start at 5 [place] 00 mgTitrate to maintain SBP 110-150 mmHg., Dosing Weight 90.909, kg, Route: IV, Total Volume: 200, Start Date: 11/22/13 15:21:00, Duration: 30 day, Stop date: 12/22/13 15:20:00, Replace Every: 24 hrSame as: Cardene Concentrat ion: (0.2 mg /1 ml ) Magnesium 2013- No 30 mL, Memori a Hydroxide 2-24 [...] as: Apresoline ) Push over 5 minutes Labetalol No 20 mg, 4 Tico jessi 2-24 mL, Route: l 21:07: IVP, Drug Momo 00 form: INJ, Q10Min, Dosing Weight 90.909, kg, PRN Other -See Comment, Start date: 11/22/13 15:07:00, Duration: 30 day, Stop date: 12/22/13 16:06:00(S anthony as: Normodyne, Trandate) Push over 2 minutes Give bolus over 2-3 minutes. Hydralazine 2013-0 No 20 mg, 1 Me moria 2-24 mL, Route: l 21:07: IVP, Drug form: INJ, Q4H, Dosing Weight 90.909, kg, PRN Elevated BP, Start date: 11/22/13 15:07:00, Duration: 30 day, Stop date: 12/22/13 15:06:00, SBP>150(Sa me as: Apresoline ) Push over 5 minutes Nicardipine 2013- No 40 mg, 200 Memoria 2-24 mL, Rate: l 18:57: Titrate Dosing Weight 90.909, kg, Route: IV, Total Volume: 200 mL, Start Date: 11/22/13 12:57:00, Duration: 30 day, Stop date: 12/22/13 12:56:00, Replace Every: 24 hrSame as: Cardene Concentrat ion: (0.2 mg /1 ml ) Nicardipine No 40 mg, 200 Memoria 2-24 mL, Rate: l 18:57: Titrate Dosing Weight 90.909, kg, Route: IV, Total Volume: 200 mL, Start Date: 11/22/13 12:57:00, Duration: 30 day, Stop date: 12/22/13 12:56:00, Replace Every: 24 hrSame as: Cardene Concentrat ion: (0.2 mg /1 ml ) Saline 2013-0 No 5 mL, Memoria Flush 0.9% 2-24 Route: l 18:46: IVP, Drug Form: INJ, Dosing Weight 79.545, kg, PRN, PRN Line Flush, Start date: 11/22/13 12:46:00, Duration: 30 day, Stop date: 12/22/13 13:45:00(S anthony as: BD Posiflush) Saline 2013-0 No 5 mL, Memoria Flush 0.9% 2-24 [...] n 55 tab, Substituti on Allowed, TAB Benicar 20 Yes Rj 20 mg, 1 M emoria mg oral 2-05 Maia tab, PO, l tablet 15:06: Daily, 30 Luisito n 55 tab, Substituti on Allowed, TAB [place] Yes Rj 1-2 tab, Memori a 7.5/325 2-05 Maia PO, Q4-6H, l oral tablet 15:06: PRN, 20 Her bertrand 43 tab, Pain, Substituti on Allowed, Maintenanc e [place] Yes Rj 1-2 tab, Memori a 7.5/325 2-05 Maia PO, Q4-6H, l oral tablet 15:06: PRN, 20 Her bertrand 43 tab, Pain, Substituti on Allowed, Maintenanc e Motrin No Rj 600 mg, 1 [place] 2-05 Maia tab, l 14:29: Route: PO, [place] 00 Drug form: TAB, ONCE, Dosing Weight 79.545, kg, Priority: STAT, Start date: 11/03/12 8:29:00, Stop date: 11/03/12 8:29:00 Motrin 0 No Rj 600 mg, 1 [place] 2-05 Maia tab, l 14:29: Route: PO, Momo 00 Drug form: TAB, ONCE, Dosing Weight 79.545, kg, Priority: STAT, Start date: 11/03/12 8:29:00, Stop date: 11/03/12 8:29:00 clonidine 2012-0 No Carolina 0.1 mg, 1 Memoria 2-05 Jackie tab, l 13:48: Route: PO, Drug form: TAB, ONCE, Dosing Weight 79.545, kg, Priority: STAT, Start date: 11/03/12 7:48:00, Stop date: 11/03/12 7:48:00 clonidine 2012- No [place] 0.1 mg, 1 Memoria 2-05 Jackie tab, l 13:48: Route: PO, Drug form: TAB, ONCE, Dosing Weight 79.545, kg, Priority: STAT, Start date: 11/03/12 7:48:00, Stop date: 11/03/12 7:48:00 IDS med No Montez IV, 333.33 Me moria 4-11 Garth ml/hr, l 22:00: Nila ONCE, Start date: 01/08/12 17:00:00, 1,000 ml IDS med No [place] IV, 333.33 Me moria 4-11 Garth ml/hr, l 22:00: Nila ONCE, Start date: 01/08/12 17:00:00, 1,000 ml [place] 5/325 No Mohan 1 tab, Memoria oral tablet - Ahmed Route: PO, l 21:22: ONCE, Start date: 01/08/12 16:22:00, Stop date: 01/08/12 16:22:00 [place] 5/325 No Mohan 1 tab, Memoria oral tablet 4-11 Ahmed Route: PO, l 21:22: ONCE, Start date: 01/08/12 16:22:00, Stop date: 01/08/12 16:22:00 NS 1,000 mL No Manuel Fenton 1,000 mL, Memoria 4-11 Allen Rate: l 19:56: 1,000 Momo 00 ml/hr, Infuse over: 1 hr, Route: IV, Dosing Weight 115.5 kg, Total Volume: 1,000, Start date: 01/08/12 14:56:00, Duration: 30 day, Stop date: 02/07/12 14:55:00 NS 1,000 mL No Manuel M 1,000 mL, [facility] 4-11 Allen Rate: l 19:56: 1,000 Mom[facility] 00 ml/hr, Infuse over: 1 hr, Route: IV, Dosing Weight 115.5 kg, Total Volume: 1,000, Start date: 01/08/12 14:56:00, Duration: 30 day, Stop date: 02/07/12 14:55:00 Naprosyn Yes Mohan 375 mg, Me moria 375 mg oral 4-11 Ahmed PO, BID, l tablet 18:55: PRN, 30 [place] 47 tab, Pain, Substituti on Allowed Naprosyn Yes Mohan 375 mg, Me moria 375 mg oral 4-11 Ahmed PO, BID, l tablet 18:55: PRN, 30 [place] 47 tab, Pain, Substituti on Allowed Vicodin Yes Mohan 1-2 Memori a 5/500 oral 4-11 Ahmed tablets, l tablet 18:55: PO, Q4-6H, Joanna nn 37 PRN, 30 tab, for Pain, Substituti on Allowed, Maintenanc e Vicodin Yes Mohan 1-2 Memori a 5/500 oral 4-11 Ahmed tablets, l tablet 18:55: PO, Q4-6H, Joanna nn 37 PRN, 30 tab, for Pain, Substituti on Allowed, Maintenanc e Immunizations Ordered Immunization Filled Immunization Date Status Commen ts Source Name Name influenza virus 2018-06-29 Completed [facility] vaccine, live, 00:00:00 [facility] trivalent influenza virus 2018-06-29 Completed [facility] vaccine, live, 00:00:00 [place] trivalent influenza virus 2018-06-22 Completed [facility] vaccine, inactivated 00:00:00 [facility] elidia influenza virus 2018-06-22 Completed [facility] vaccine, inactivated 00:00:00 [facility] elidia hepatitis B adult 2018-05-18 Completed [facility] l vaccine 00:00:00 [place] hepatitis B adult 2018-05-18 Completed [facility] l vaccine 00:00:00 [place] hepatitis B adult 2018-01-23 Completed [facility] l vaccine 00:00:00 [place] hepatitis B adult 2018-01-23 Completed [facility] l vaccine 00:00:00 Mom[facility] hepatitis B adult 2017-12-22 Completed [facility] l vaccine 00:00:00 Momo hepatitis B adult 2017-12-22 Completed [facility] l vaccine 00:00:00 Momo hepatitis B adult 2017-11-24 Completed [facility] l vaccine 00:00:00 Mom[facility] hepatitis B adult 2017-11-24 Completed [facility] l vaccine 00:00:00 Mom[facility] hepatitis B adult 2017-10-03 Completed [facility] vaccine 00:00:00 Mom[facility] hepatitis B adult 2017-10-03 Completed [facility] l vaccine 00:00:00 [facility] influenza virus 2017-06-09 Completed [facility] vaccine, inactivated 00:00:00 Ngoc wesley influenza virus 2017-06-09 Completed [facility] vaccine, inactivated 00:00:00 Ngoc elidia hepatitis B adult 2017-06-04 Completed [facility] l vaccine 00:00:00 Momo hepatitis B adult 2017-06-04 Completed [facility] l vaccine 00:00:00 Momo hepatitis B adult 2017-05-02 Completed [facility] l vaccine 00:00:00 Momo hepatitis B adult 2017-05-02 Completed [facility] l vaccine 00:00:00 [facility] pneumococcal 2017-04-11 Completed [facility] 13-valent vaccine 00:32:00 [facility] pneumococcal 2017-04-11 Completed [facility] 13-valent vaccine 00:32:00 [facility] pneumococcal 2017-04-11 Completed [facility] 23-valent vaccine 00:00:00 Moom pneumococcal 2017-04-11 Completed [facility] 23-valent vaccine 00:00:00 Momo hepatitis B adult 2017-03-29 Completed [facility] l vaccine 00:00:00 Momo hepatitis B adult 2017-03-29 Completed [facility] l vaccine 00:00:00 Momo Vital Signs Vital Name Observation Time Observation Value Comments Source Respiratory rate 2022-12-02 22:30:00 18 /min [facility] Oxygen saturation in 2022-12-02 22:30:00 100 /min [facility] Arterial blood by [facility] Pulse oximetry [place] Systolic blood 2022-12-02 22:30:00 159 mm[Hg] Univer sity of pressure [facility] Diastolic blood 2022-12-02 22:30:00 99 mm[Hg] [facility] Heart rate 2022-12-02 22:30:00 78 /min [facility] Body temperature 2022-12-02 17:38:00 36.33 Brittany [facility] Body height 2022-12-02 17:38:00 170.2 cm [facility] Body weight 2022-12-02 17:38:00 92.987 kg [facility] BMI 2022-12-02 17:38:00 32.11 kg/m2 [facility] Systolic (mm Hg) 2022-12-14 12:49:16 Tico rial [place] Diastolic (mm Hg) 2022-12-14 12:49:16 Mem orial [place] Heart Rate 2022-12-14 12:49:16 [facility] [place] Temperature Oral (F) 2022-12-14 12:49:02 98.3 F [facility] Respitory Rate 2022-12-09 15:09:00 Memori al [place] Respitory Rate 2022-12-09 15:00:00 [facility]ori al [place] Systolic (mm Hg) 2022-12-09 15:00:00 Tioc rial [place] Diastolic (mm Hg) 2022-12-09 15:00:00 Mem orial [place] Temperature Oral (F) 2022-12-09 15:00:00 98.5 F [facility] Respitory Rate 2022-12-09 14:45:00 [facility] al [place] Systolic (mm Hg) 2022-12-09 14:45:00 Tico rial [place] Diastolic (mm Hg) 2022-12-09 14:45:00 Mem orial [place] Systolic (mm Hg) 2022-12-09 14:30:00 Tico rial [place] Diastolic (mm Hg) 2022-12-09 14:30:00 Mem orial [facility] Temperature Oral (F) 2022-12-09 11:00:00 98.3 F [facility] [place] Heart Rate 2022-12-09 04:14:31 [facility] Heart Rate 2022-12-09 04:13:28 [facility] [place] Temperature Oral (F) 2022-12-09 04:13:00 97.9 F [facility] Heart Rate 2022-12-09 02:07:00 [facility] Temperature Oral (F) 2022-12-04 21:47:07 98.1 F [facility] Height 2022-12-03 02:25:00 5 [ft_i] [facility] Weight 2022-12-03 02:25:00 [facility] [place] BMI Calculated 2022-12-03 02:25:00 [facility] [place] Temperature Oral (F) 2019-08-20 19:22:00 98.6 F [facility] Heart Rate 2019-08-20 19:22:00 [facility] [place] Respitory Rate 2019-08-20 19:22:00 [facility] [place] Systolic (mm Hg) 2019-08-20 19:22:00 Tico rial [place] Diastolic (mm Hg) 2019-08-20 19:22:00 Mem orial [place] Temperature Oral (F) 2019-08-20 18:00:00 98.6 F [facility] Heart Rate 2019-08-20 18:00:00 [facility] Respitory Rate 2019-08-20 18:00:00 Mem[facility] al [place] Systolic (mm Hg) 2019-08-20 18:00:00 Tico rial [place] Diastolic (mm Hg) 2019-08-20 18:00:00 Mem orial [place] Temperature Oral (F) 2019-08-20 14:01:00 98.2 F [facility] Heart Rate 2019-08-20 14:01:00 [facility] Respitory Rate 2019-08-20 14:01:00 [facility] al [place] Systolic (mm Hg) 2019-08-20 14:01:00 Tico rial [facility] Diastolic (mm Hg) 2019-08-20 14:01:00 Mem orial [place] Height 2019-08-19 18:35:00 170.18 cm [facility] [place] BMI Calculated 2019-08-19 18:35:00 [facility] [place] Weight 2019-08-19 18:35:00 [facility] [place] Systolic (mm Hg) 2019-01-26 20:26:00 Tico rial [place] Diastolic (mm Hg) 2019-01-26 20:26:00 Mem orial [place] Heart Rate 2019-01-26 20:26:00 [facility] Systolic (mm Hg) 2019-01-21 19:27:00 Tico rial [place] Diastolic (mm Hg) 2019-01-21 19:27:00 Mem orial [place] Heart Rate 2019-01-21 19:27:00 [facility] Heart Rate 2019-01-19 18:16:00 [facility] [place] Systolic (mm Hg) 2019-01-19 18:16:00 Tico rial [place] Diastolic (mm Hg) 2019-01-19 18:16:00 Mem orial [place] Systolic (mm Hg) 2018-12-17 19:33:00 Tico rial [place] Diastolic (mm Hg) 2018-12-17 19:33:00 Mem orial [facility] Heart Rate 2018-12-17 19:33:00 [facility] [place] Systolic (mm Hg) 2018-12-15 17:50:00 Tico rial [facility] Diastolic (mm Hg) 2018-12-15 17:50:00 Mem orial [place] Heart Rate 2018-12-15 17:50:00 [facility] [place] Height 2018-09-23 23:23:00 170.18 cm [facility] Mmoo BMI Calculated 2018-09-23 23:23:00 Memori al [place] Weight 2018-09-23 23:23:00 [facility] BMI Calculated 2018-08-25 19:57:00 Memori al [place] Weight 2018-08-25 19:57:00 [facility] [place] Height 2018-08-25 19:57:00 167.64 cm [facility] Systolic (mm Hg) 2018-08-25 19:57:00 Tico rial [place] Diastolic (mm Hg) 2018-08-25 19:57:00 Mem orial [place] Heart Rate 2018-08-25 19:57:00 [facility] Temperature Oral (F) 2018-08-25 19:57:00 98.1 F [facility] Systolic (mm Hg) 2018-07-30 16:56:00 Tico rial [place] Diastolic (mm Hg) 2018-07-30 16:56:00 Mem orial [place] Heart Rate 2018-07-30 16:56:00 [facility] [place] Systolic (mm Hg) 2018-07-28 19:50:00 Tico rial [facility] Diastolic (mm Hg) 2018-07-28 19:50:00 Mem orial [place] Respitory Rate 2018-07-28 19:50:00 Memori al [place] Temperature Oral (F) 2018-07-28 19:50:00 98 F [facility] [place] Respitory Rate 2018-07-28 19:12:00 [facility] [place] Systolic (mm Hg) 2018-07-28 19:12:00 Tico rial [facility] Diastolic (mm Hg) 2018-07-28 19:12:00 Mem orial [place] Systolic (mm Hg) 2018-07-28 18:58:00 Tico rial [place] Diastolic (mm Hg) 2018-07-28 18:58:00 Mem orial [facility] Respitory Rate 2018-07-28 18:58:00 Memori al [facility] Heart Rate 2018-07-28 18:58:00 [facility] [place] Weight 2018-07-28 17:47:00 [facility] Temperature Oral (F) 2018-07-28 17:47:00 98.7 F [facility] [place] Heart Rate 2018-07-28 17:47:00 [facility] [place] Systolic (mm Hg) 2018-07-28 15:19:00 Tico rial [place] Diastolic (mm Hg) 2018-07-28 15:19:00 Mem orial [place] Heart Rate 2018-07-28 15:19:00 [facility] [place] Systolic (mm Hg) 2018-07-23 16:28:00 Tico rial [place] Diastolic (mm Hg) 2018-07-23 16:28:00 Mem orial [place] Heart Rate 2018-07-23 16:28:00 [facility] Heart Rate 2018-07-16 16:29:00 [facility] Systolic (mm Hg) 2018-07-16 16:29:00 Tico rial [place] Diastolic (mm Hg) 2018-07-16 16:29:00 Mem orial [facility] Systolic (mm Hg) 2018 17:51:00 Tico rial [place] Diastolic (mm Hg) 2018 17:51:00 Mem orial [place] Heart Rate 2018 17:51:00 [facility] [place] Systolic (mm Hg) 2018-07-07 17:55:00 Tico rial [facility] Diastolic (mm Hg) 2018-07-07 17:55:00 Mem orial [facility] Heart Rate 2018-07-07 17:55:00 [facility] [place] Heart Rate 2018-06-16 16:31:00 [facility] [place] Systolic (mm Hg) 2018-06-16 16:31:00 Tico rial [place] Diastolic (mm Hg) 2018-06-16 16:31:00 Mem orial [place] Systolic (mm Hg) 2018-06-11 16:04:00 Tico rial [place] Diastolic (mm Hg) 2018-06-11 16:04:00 Mem orial [place] Heart Rate 2018-06-11 16:04:00 [facility] [place] Heart Rate 2018-06-04 17:34:00 [facility] Systolic (mm Hg) 2018-06-04 17:34:00 Tico rial [place] Diastolic (mm Hg) 2018-06-04 17:34:00 Mem orial [facility] Weight 2018-04-14 14:24:00 [facility] BMI Calculated 2018-04-14 14:24:00 Mem[facility] al [place] Height 2018-04-14 14:24:00 167.64 cm [facility] Heart Rate 2018-04-14 14:24:00 [facility] Temperature Oral (F) 2018-04-14 14:24:00 98.3 F [facility] [place] Systolic (mm Hg) 2018-04-14 14:24:00 Tico rial [facility] Diastolic (mm Hg) 2018-04-14 14:24:00 Mem orial [place] BMI Calculated 2018-03-02 13:49:00 Memori al [facility] Weight 2018-03-02 13:49:00 [facility] [place] Height 2018-03-02 13:49:00 177.8 cm [facility] [place] Temperature Oral (F) 2018-03-02 11:50:00 98 F [facility] Systolic (mm Hg) 2018-03-02 11:50:00 Tico rial [place] Diastolic (mm Hg) 2018-03-02 11:50:00 Mem orial [place] Respitory Rate 2018-03-02 11:50:00 Memori al [facility] Height 2018-02-25 19:39:00 167.64 cm [facility] [place] Weight 2018-02-25 19:39:00 [facility] [place] BMI Calculated 2018-02-25 19:39:00 [facility] Systolic (mm Hg) 2018-02-25 19:39:00 Tico rial [facility] Diastolic (mm Hg) 2018-02-25 19:39:00 Mem orial [place] Heart Rate 2018-02-25 19:39:00 [facility] [place] Temperature Oral (F) 2018-02-25 19:39:00 97.7 F [facility] Systolic (mm Hg) 2018-02-24 23:15:00 Tico rial [place] Diastolic (mm Hg) 2018-02-24 23:15:00 Mem orial [facility] Systolic (mm Hg) 2018-02-24 23:00:00 Tico rial [facility] Diastolic (mm Hg) 2018-02-24 23:00:00 Mem orial [facility] Systolic (mm Hg) 2018-02-24 22:30:00 Tico rial [place] Diastolic (mm Hg) 2018-02-24 22:30:00 Mem orial [facility] Respitory Rate 2018-02-24 22:27:00 Memori al [place] Heart Rate 2018-02-24 22:27:00 [facility] Respitory Rate 2018-02-24 22:00:00 [facility]ori al [place] Heart Rate 2018-02-24 22:00:00 [facility] Respitory Rate 2018-02-24 21:45:00 Mem[facility] al [facility] Heart Rate 2018-02-24 21:45:00 [facility] BMI Calculated 2018-02-24 21:28:00 [facility] Height 2018-02-24 21:28:00 170.18 cm [facility] [place] Weight 2018-02-24 21:28:00 [facility] [place] Temperature Oral (F) 2018-02-24 21:28:00 98.4 F [facility] Heart Rate 2018-01-27 22:41:00 [facility] [place] Temperature Oral (F) 2018-01-27 22:41:00 99 F [facility] [place] Respitory Rate 2018-01-27 22:41:00 Memori al [facility] Systolic (mm Hg) 2018-01-27 22:41:00 Tico rial [facility] Diastolic (mm Hg) 2018-01-27 22:41:00 Mem orial [facility] Systolic (mm Hg) 2018-01-27 19:47:00 Tico rial [facility] Diastolic (mm Hg) 2018-01-27 19:47:00 Mem orial [facility] Heart Rate 2018-01-27 19:47:00 [facility] BMI Calculated 2018-01-27 19:47:00 [facility] al [place] Weight 2018-01-27 19:47:00 [facility] [place] Respitory Rate 2018-01-27 19:47:00 Mem[facility] al [facility] Temperature Oral (F) 2018-01-27 19:47:00 97.7 F [facility] [place] Height 2018-01-27 19:47:00 170.18 cm [facility] [place] Weight 2018-01-27 13:45:00 [facility] [place] BMI Calculated 2018-01-27 13:45:00 Mem[facility] al [facility] Heart Rate 2018-01-27 13:45:00 [facility] Respitory Rate 2018-01-27 13:45:00 [facility] Height 2018-01-27 13:45:00 168 cm [facility] Systolic (mm Hg) 2018-01-27 13:45:00 Tico rial Mom[facility] Diastolic (mm Hg) 2018-01-27 13:45:00 Mem orial [place] Systolic (mm Hg) 2018-01-01 17:45:00 Tico rial Mom[facility] Diastolic (mm Hg) 2018-01-01 17:45:00 Mem orial [facility] Respitory Rate 2018-01-01 17:45:00 Memori al [place] Respitory Rate 2018-01-01 17:30:00 [facility] [place] Systolic (mm Hg) 2018-01-01 17:30:00 Tico rial [place] Diastolic (mm Hg) 2018-01-01 17:30:00 Mem orial [place] Respitory Rate 2018-01-01 17:15:00 Memori al [place] Systolic (mm Hg) 2018-01-01 17:15:00 Tico rial [place] Diastolic (mm Hg) 2018-01-01 17:15:00 Mem orial [place] Temperature Oral (F) 2018-01-01 12:03:00 97.8 F [facility] [place] BMI Calculated 2017-12-31 20:21:00 [facility] [place] Weight 2017-12-31 20:21:00 [facility] [place] Height 2017-12-31 20:21:00 170.18 cm [facility] Systolic (mm Hg) 2017-11-13 22:30:00 Tico rial [place] Diastolic (mm Hg) 2017-11-13 22:30:00 Mem orial [place] Respitory Rate 2017-11-13 22:30:00 Memori al [place] Systolic (mm Hg) 2017-11-13 22:15:00 Tico rial [place] Diastolic (mm Hg) 2017-11-13 22:15:00 Mem orial [facility] Respitory Rate 2017-11-13 22:15:00 Memori [facility] [place] Respitory Rate 2017-11-13 22:00:00 Memori al [facility] Systolic (mm Hg) 2017-11-13 22:00:00 Tico rial [place] Diastolic (mm Hg) 2017-11-13 22:00:00 Mem orial [facility] Temperature Oral (F) 2017-11-13 21:00:00 97.7 F [facility] [place] Temperature Oral (F) 2017-11-13 17:30:00 98.2 F [facility] BMI Calculated 2017-11-13 15:57:00 [facility] [place] Height 2017-11-13 15:57:00 170.18 cm [facility] [place] Weight 2017-11-13 15:57:00 [facility] Systolic (mm Hg) 2017-09-01 15:19:00 Tico rial [place] Diastolic (mm Hg) 2017-09-01 15:19:00 Mem orial [place] BMI Calculated 2017-09-01 15:19:00 [facility] [place] Weight 2017-09-01 15:19:00 [facility] [place] Heart Rate 2017-09-01 15:19:00 [facility] Temperature Oral (F) 2017-09-01 15:19:00 97.7 F [facility] Height 2017-09-01 15:19:00 170.18 cm [facility] [place] Systolic (mm Hg) 2017-06-26 18:00:00 Tico rial [place] Diastolic (mm Hg) 2017-06-26 18:00:00 Mem orial [facility] Respitory Rate 2017-06-26 18:00:00 [facility] [place] Systolic (mm Hg) 2017-06-26 17:45:00 Tico rial [facility] Diastolic (mm Hg) 2017-06-26 17:45:00 Mem orial [place] Respitory Rate 2017-06-26 17:45:00 [facility] [place] Respitory Rate 2017-06-26 17:30:00 [facility] [place] Systolic (mm Hg) 2017-06-26 17:30:00 Tico rial [place] Diastolic (mm Hg) 2017-06-26 17:30:00 Mem orial [facility] BMI Calculated 2017-06-26 12:26:00 [facility] [place] Weight 2017-06-26 12:26:00 [facility] Height 2017-06-26 12:26:00 170.18 cm [facility] [place] Temperature Oral (F) 2017-06-26 11:45:00 98.3 F [facility] [place] Systolic (mm Hg) 2017-05-15 19:15:00 Tico rial Ommo Diastolic (mm Hg) 2017-05-15 19:15:00 Mem orial [place] Respitory Rate 2017-05-15 19:15:00 [facility] al [place] Respitory Rate 2017-05-15 19:00:00 Memori al [facility] Systolic (mm Hg) 2017-05-15 19:00:00 Tico rial [facility] Diastolic (mm Hg) 2017-05-15 19:00:00 Mem orial [place] Respitory Rate 2017-05-15 18:45:00 Memori al [place] Systolic (mm Hg) 2017-05-15 18:45:00 Tico rial [place] Diastolic (mm Hg) 2017-05-15 18:45:00 Mem orial [facility] Respitory Rate 2017-05-09 23:08:00 Mem[facility] al [facility] Temperature Oral (F) 2017-05-09 23:08:00 98.2 F [facility] [place] Weight 2017-05-09 23:08:00 [facility] BMI Calculated 2017-05-09 23:08:00 [facility] [place] Heart Rate 2017-05-09 23:08:00 [facility] Systolic (mm Hg) 2017-05-09 23:08:00 Tico rial [facility] Diastolic (mm Hg) 2017-05-09 23:08:00 Mem orial [facility] Height 2017-05-09 23:08:00 170.18 cm [facility] [place] Weight 2017-05-08 18:44:00 [facility] BMI Calculated 2017-05-08 18:44:00 [facility] [place] Height 2017-05-08 18:44:00 170.18 cm [facility] [place] Systolic (mm Hg) 2017-04-11 00:41:00 Tico rial [facility] Diastolic (mm Hg) 2017-04-11 00:41:00 Mem orial [place] Heart Rate 2017-04-11 00:41:00 [facility] Respitory Rate 2017-04-11 00:41:00 [facility] [place] Temperature Oral (F) 2017-04-11 00:41:00 98.0 F [facility] Temperature Oral (F) 2017-04-10 20:33:00 98.2 F [facility] [place] Heart Rate 2017-04-10 20:33:00 [facility] Systolic (mm Hg) 2017-04-10 20:33:00 Tico rial [place] Diastolic (mm Hg) 2017-04-10 20:33:00 Mem orial [facility] Systolic (mm Hg) 2017-04-10 19:33:00 Tico rial [facility] Diastolic (mm Hg) 2017-04-10 19:33:00 Mem o[facility] Heart Rate 2017-04-10 19:33:00 [facility] Respitory Rate 2017-04-10 17:03:00 [facility] [place] Temperature Oral (F) 2017-04-10 17:03:00 97.8 F [facility] Respitory Rate 2017-04-10 08:00:00 [facility] [place] BMI Calculated 2017-04-10 01:28:00 [facility] Height 2017-04-10 01:28:00 170.18 cm [facility] Weight 2017-04-10 01:28:00 [facility] Weight 2017-04-09 22:17:00 [facility] [place] Heart Rate 2017-03-18 16:54:00 [facility] [place] Systolic (mm Hg) 2017-03-18 16:54:00 Tico rial [place] Diastolic (mm Hg) 2017-03-18 16:54:00 Mem orial [facility] Heart Rate 2017-03-18 16:25:00 [facility] [place] Respitory Rate 2017-03-18 16:25:00 [facility] al [place] Systolic (mm Hg) 2017-03-18 16:25:00 Tico rial [facility] Diastolic (mm Hg) 2017-03-18 16:25:00 Mem o[facility] Temperature Oral (F) 2017-03-18 16:25:00 97.9 F [facility] [place] Temperature Oral (F) 2017-03-18 12:41:00 98.1 F [facility] [place] Heart Rate 2017-03-18 12:41:00 [facility] Respitory Rate 2017-03-18 12:41:00 Memori al [facility] Diastolic (mm Hg) 2017-03-18 12:41:00 Mem orial [place] Systolic (mm Hg) 2017-03-18 12:41:00 Tico rial [place] Temperature Oral (F) 2017-03-18 05:07:00 98.7 F [facility] [place] Respitory Rate 2017-03-17 17:00:00 [facility] [place] Weight 2017-03-11 03:29:00 [facility] [place] BMI Calculated 2017-03-11 03:29:00 Mem[facility] al [facility] Height 2017-03-11 03:29:00 170.18 cm [facility] [place] Weight 2017-03-10 21:27:00 [facility] [place] Respitory Rate 2013-11-26 23:08:00 Memori al [facility] Diastolic (mm Hg) 2013-11-26 21:50:00 Mem orial [place] Systolic (mm Hg) 2013-11-26 21:50:00 Tico rial [facility] Respitory Rate 2013-11-26 21:50:00 [facility] Respitory Rate 2013-11-26 21:02:00 [facility] Systolic (mm Hg) 2013-11-26 20:00:00 Tico rial [facility] Diastolic (mm Hg) 2013-11-26 20:00:00 Mem o[facility] Systolic (mm Hg) 2013-11-26 18:00:00 Tico rial [facility] Diastolic (mm Hg) 2013-11-26 18:00:00 Mem o[facility] Temperature Oral (F) 2013-11-26 18:00:00 98 F [facility] [place] Temperature Oral (F) 2013-11-26 10:30:00 98.7 F [facility] [place] Temperature Oral (F) 2013-11-26 08:00:00 98.5 F [facility] Weight 2013-11-22 21:37:00 [facility] Heart Rate 2013-11-22 20:55:00 [facility] [place] Heart Rate 2013-11-22 20:24:00 [facility] [place] Heart Rate 2013-11-22 20:04:00 [facility] Height 2013-11-22 18:42:00 170.18 cm [facility] [place] Weight 2013-11-22 18:42:00 [facility] [place] BMI Calculated 2013-11-22 18:42:00 [facility] [place] Weight 2012-11-03 13:39:00 [facility] [place] Height 2012-11-03 13:39:00 170.18 cm [facility] Height 2012-01-08 15:12:00 170.18 cm [facility] [place] Weight 2012-01-08 15:12:00 [facility] Procedures Procedure Date / Time Performing Clinician Source Performed US DUPLEX VENOUS ARM 2022-12-02 18:57:00 Roberto Pratt of [place] LEFT - BY VASCULAR LAB [facility] COMP. METABOLIC PANEL 2022-12-02 18:34:00 Roberto Pratt [facility] ([id number]) [facility] CBC WITH DIFF 2022-12-02 18:34:00 Roberto Pratt [place] [facility] PROTHROMBIN TIME / INR 2022-12-02 18:34:00 [facility] ACTIVATED PARTIAL 2022-12-02 18:34:00 Roberto Pratt [facility] THRMPLAS [facility] Colonoscopy 2018-09-24 06:00:00 [facility] Arteriovenous fistula 2017-05-15 05:00:00 Shannon Rivers operation Insertion of tunneled 2016-09-29 00:00:00 Shannon Rivers central venous catheter using fluoroscopic guidance<sup>1</sup> Encounters Start End Encounter Admission Attending Care Care Encounter Source Date/Time Date/Time Type Type Clinicians Facility Department ID 2023-03-31 OD LUISITO JORGE [id number] Nm moria 12:25:30 00 l [facility] 2023-03-26 OD LUISITO JORGE [id number] Me moria 13:26:25 00 l [place] 2022-12-11 Outpatient [facility] [id number] [place] 07:29:[id number] [facility] 2022-12-06 Outpatient [facility] [id number] [place] 09:33:[id number] [facility] 2022-12-04 Inpatient [facility] [id number] [facility] 13:30:55 2022-12-03 Outpatient [facility] [id number] [place] 14:02:[id number] [facility] 2022-12-05 2022-12-14 Inpatient [facility] [id number] [facility] 16:53:00 17:17:[address] 2022-12-05 2022-12-14 Inpatient [facility] [id number] Memoria 16:53:00 17:17:00 [place] 65 [facility] 2022-12-05 2022-12-14 Inpatient U QUANG [facility] [id number] 10:53:00 12:17:00 GERMAN So [facility] 2022-12-05 2022-12-14 Outpatient Quang, [facility] [id number] 10:53:00 12:17:00 Prasarwat 65 [place] 2022-12-11 2022-12-11 Outpatient YAZ, [facility] [id number] [place] 13:30:00 13:30:00 [facility] 2022-12-09 2022-12-09 Outpatient YAZ, [facility] [id number] [place] 14:30:00 14:30:00 [facility] 2022-12-06 2022-12-06 Outpatient DONAL, [facility] [id number] [place] 09:30:00 09:30:00 [facility] 2022-12-05 2022-12-05 Outpatient Salud, [facility]SE [facility]SE [id number] 10:53:00 10:53:00 GianBoonePura 65 2022-12-03 2022-12-03 Outpatient DONAL, [facility] [id number] [place] 11:30:00 11:30:00 [facility] 2022-12-02 2022-12-[address] [facility] [id number] Univers 11:37:00 16:41:00 ROBERTO belchery of [facility] 2022-12-02 2022-12-[address] [facility] [id number] Univers 11:37:00 16:41:00 Roberto VALENTINO [id number] i ty [facility] [id number] [facility] [id number] [facility] marlen [address] 2022-04-19 2022-04-19 Outpatient R [facility] [id number] Univers 09:00:00 09:00:00 [place] ity o f [facility] 2022-04-10 2022-04-[address] [facility] [id number] Univers 00:00:00 00:00:00 [place] Bojorquez MULTISPEC [id number] [facility] [id number] [facility] [place] [address] [facility] 2022-04-10 2022-04-[address] 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 .840.114 [id number] Univers 12:00:00 12:00:00 Visit [place] Chang MULTISPEC 350.1.13 .10 ity of IALTY 4.2.7.2.686 [facility] [id number] [address] [facility] 2022-03-27 2022-03-27 Outpatient R ANAI STONE [facility] [id number] Univers 11:00:00 11:58:21 ity of [facility] 2022-03-27 2022-03-27 Center Hole Reamer, Transplant Social [facility] 1..840.114 [id number] Univers 11:00:00 11:58:21 Management [place] Chang MULTISPEC 350.1 .13.10 ity of IALTY 4.2.7.2.686 [facility] s PAOLI [id number] [facility] [address] DIABETES [facility] 2022-03-27 2022-03-27 Office Anai Stone [facility] 1.2.840.114 [id number] Univers 10:00:00 11:58:04 Visit [place] Chang MULTISPEC 350.1.13 .10 ity of IALTY 4.2.7.2.686 [facility] [id number] [facility] [address] DIABETES [facility] 2022-03-27 2022-03-27 Nurse Renal, Transplant Class [facility] 1. 2.840.114 [id number] [facility] 08:30:00 09:15:00 Visit [place] Chang MULTISPEC 350.1.13 .10 ity of IALTY 4.2.7.2.686 [facility] [id number] [address] DIABETES [facility] 2019-08-19 2019-08-20 Emergency nullFlavo [facility] [id number] Memoria 18:32:29 19:53:00 r Momo 21 l [place] 2019-08-19 2019-08-20 Emergency nullFlavo [facility] [id number] Memoria 18:32:29 19:53:00 r Momo 21 l [place] 2019-08-19 2019-08-20 Outpatient CEDRIC Cannon [place] [id number] 12:32:29 13:53:00 Jeromy Roper 2019-08-19 2019-08-19 Emergency E MHFB MHFB [id number] MHFB 12:32:00 12:32:00 2019-08-11 2019-08-11 Emergency E MAY, ELIUD [facility] [id number] [facility] 07:59:00 09:20:00 Medica l [place] 2019-06-22 2019-07-22 OP nullFlavo Transplant [id number] Memoria 12:20:00 04:59:00 Transplant r Center 05 l [facility] 2019-06-22 2019-07-22 OP nullFlavo Transplant [id number] Memoria 12:20:00 04:59:00 Transplant r Center 05 gayle [facility] Momo Pablo 2019-06-22 2019-07-21 Outpatient [facility] [id number] 07:20:00 23:59:00 Vince Clara Tomlin Kalani 2019-06-22 2019-06-22 Outpatient [facility] [id number] [facility] 07:20:00 07:20:00 2019-05-26 2019-05-26 Ambulatory nullFlavo [facility] [id number] Memoria 20:00:00 20:00:00 Pre-Reg r Internal 08 [facility] 2019-05-26 2019-05-26 Ambulatory nullFlavo [facility] [id number] Memoria 20:00:00 20:00:00 [facility] 2019-05-26 2019-05-26 Outpatient IE MHIE [id number] Memoria 15:00:00 15:00:00 gayle Barr 2019-05-26 2019-05-26 Outpatient Erma [facility]MG [id number] 15:00:00 15:00:00 Romi Oliveira 2018-12-29 2019-01-28 Tots nullFlavo TIRR [id number] Memoria 16:57:00 04:59:00 Therapy r [facility] Eran araujo Momo Barr 2018-12-29 2019-01-28 Tots nullFlavo TIRR [id number] Memoria 16:57:00 04:59:00 Therapy r [facility] Eran araujo Momo Barr 2018-12-29 2019-01-27 Outpatient CHRISTIANE Ritchie MHTIRR [id number] 11:57:00 23:59:00 Romi Oliveira 2018-11-26 2018-12-26 Tots nullFlavo TIRR [id number] Memoria 16:01:00 04:59:00 Therapy r [facility] Eran araujo Momo Barr 2018-11-26 2018-12-26 Tots nullFlavo TIRR [id number] Memoria 16:01:00 04:59:00 Therapy r [facility] Eran araujo Momo Barr 2018-11-26 2018-12-25 Outpatient CHRISTIANE Ritchie MHTIRR [id number] 10:01:00 23:59:00 Romi Oliveira 2018-09-24 2018-09-24 Bedded nullFlavo [facility] [id number] Memoria 11:23:00 14:45:00 Outpatient r Momo 20 l Isabell Marshall 2018-09-24 2018-09-24 Bedded nullFlavo [facility] [id number] Memoria 11:23:00 14:45:00 Outpatient r Momo 20 l Isabell Marshall 2018-09-24 2018-09-24 Outpatient RoperKASIEL [facility] [id number] 05:23:00 08:45:00 Shun Desir 20 2018-08-26 2018-08-27 Outpatient nullFlavo [facility] [id number] Memoria 17:30:00 05:59:59 [facility] [place] 2018-08-26 2018-08-27 [place] [id number] Memoria 17:30:00 05:59:59 r Internal 07 l [facility] 2018-08-25 2018-08-27 Phone nullFlavo MG [id number] Memoria 20:42:00 05:59:59 Message r Gastroenter 02 l carl Barr Natan 2018-08-25 2018-08-27 Phone nullFlavo MG [id number] Memoria 20:42:00 05:59:59 Message r Gastroenter 02 l carl Barr Natan 2018-08-26 2018-08-26 Outpatient MG MG [id number] 11:30:00 23:59:59 07 2018-08-25 2018-08-26 Outpatient MG MG [id number] 14:42:00 23:59:59 02 2018-08-26 2018-08-26 Outpatient MHIE IE [id number] Memoria 11:30:00 11:30:00 07 l [place] 2018-08-25 2018-08-26 [place] [id number] Memoria 20:00:00 05:59:59 r Internal 06 l [facility] Momo Amadoberg 2018-08-25 2018-08-26 [place] [id number] Memoria 20:00:00 05:59:59 r Internal 06 l [facility] Momo Arthur 2018-08-25 2018-08-25 [facility] [id number] 14:00:00 23:59:59 Romi 06 Roxanne 2018-08-25 2018-08-25 Outpatient MHIE IE [id number] Memoria 14:00:00 14:00:00 06 gayle Barr 2018-07-23 2018-08-22 Tots nullFlavo TIRR [id number] Memoria 15:08:00 05:59:00 Therapy r [facility] 02 gayle Barr Momo 2018-07-23 2018-08-22 Tots nullFlavo TIRR [id number] Memoria 15:08:00 05:59:00 Therapy r [facility] 02 gayle Barr [place] 2018-07-23 2018-08-21 Outpatient Haritha, MHTIRR MHTIRR [id number] 10:08:00 23:59:00 Stephanie 02 2018-07-28 2018-07-28 Emergency nullFlavo [facility] [id number] Memoria 17:36:00 19:50:00 r Momo 19 l [place] [facility] 2018-07-28 2018-07-28 Emergency nullFlavo [facility] [id number] Memoria 17:36:00 19:50:00 r Momo 19 l [place] [facility] 2018-07-28 2018-07-28 Outpatient Carolee, MHSL MHSL [id number] 12:36:00 14:50:00 Valeri Meg Kiah 2018-06-18 2018-07-18 Tots nullFlavo TIRR [id number] Memoria 17:56:00 04:59:00 Therapy r [facility] 01 gayle Barr Momo 2018-06-18 2018-07-18 Tots nullFlavo TIRR [id number] Memoria 17:56:00 04:59:00 Therapy r [facility] 01 gayle Barr [place] 2018-06-18 2018-07-17 Outpatient De MHTIRR MHTIRR [id number] 12:56:00 23:59:00 Jp Clarke 2018-05-19 2018-06-18 Tots nullFlavo TIRR [id number] Memoria 13:49:00 04:59:00 Therapy r [facility] 00 gayle Grossmanann 2018-05-19 2018-06-18 Tots nullFlavo TIRR [id number] Memoria 13:49:00 04:59:00 Therapy r [facility] 00 gayle Barr 2018-05-19 2018-06-17 Outpatient De MHTIRR MHTIRR [id number] 08:49:00 23:59:00 Kavin Clarke Kalani 2018-04-14 2018-04-15 Outpatient nullFlavo [facility] Family 5 [id number] Memoria 15:00:00 04:59:59 r Medicine 05 l Sandhya walsh 2018-04-14 2018-04-15 Outpatient nullFlavo [facility] Family 5 [id number] Memoria 15:00:00 04:59:59 r Medicine 05 l Sandhya walsh 2018-04-14 2018-04-14 Outpatient Stevenson, MHMG MHMG [id number] 10:00:00 23:59:59 Shira 05 2018-04-14 2018-04-14 Outpatient MHIE MHIE [id number] Memoria 10:00:00 10:00:00 05 gayle Momo 2018-02-24 2018-03-26 Tots nullFlavo TIRR [id number] Memoria 13:00:00 04:59:00 Therapy r [facility] 01 gayle Barr [place] 2018-02-24 2018-03-26 Tots nullFlavo TIRR [id number] Memoria 13:00:00 04:59:00 Therapy r [facility] 01 gayle Barr Momo 2018-02-24 2018-03-25 Outpatient Haritha, MHTIRR MHTIRR [id number] 08:00:00 23:59:00 Stephanie 01 2018-03-03 2018-03-04 Outpatient E LICO, [facility] TELE [id number] [facility] 15:47:00 12:01:00 PAUL [facility] 2018-03-02 2018-03-02 Day nullFlavo [facility] [id number] Memoria 11:21:00 14:40:00 Surgery r Momo 16 l [facility] 2018-03-02 2018-03-02 Day nullFlavo [facility] [id number] Memoria 11:21:00 14:40:00 Surgery r Momo 16 l [facility] 2018-03-02 2018-03-02 Outpatient Juan Jose [facility] [id number] 06:21:00 09:40:00 Janak Kovacs 2018-02-25 2018-02-27 Phone nullFlavo [facility] [id number] Memoria 14:08:00 04:59:59 Message r Internal 01 l [facility] Momo Amadoberg 2018-02-25 2018-02-27 Phone nullFlavo MG [id number] Memoria 14:08:00 04:59:59 Message r Internal 01 l [facility] Momo Amadoberg 2018-02-25 2018-02-26 Outpatient MG [facility] [id number] 09:08:00 23:59:59 2018-02-25 2018-02-26 [place] [id number] Memoria 19:30:00 04:59:59 r [facility] 2018-02-25 2018-02-26 [place] [id number] Memoria 19:30:00 04:59:59 r Internal 04 l [facility] 2018-01-27 2018-02-26 OP nullFlavo [facility] [id number] Memoria 13:44:00 04:59:00 Transplant r [place] 00 l [facility] 2018-01-27 2018-02-26 OP nullFlavo [facility] [id number] Memoria 13:44:00 04:59:00 Transplant r [place] 00 l Clinic - Transplant [facility] 2018-02-25 2018-02-25 Outpatient Graham [facility] [id number] 14:30:00 23:59:59 Shira 04 2018-01-27 2018-02-25 Outpatient De [facility] [id number] 08:44:00 23:59:00 Kavin Clarke 2018-02-25 2018-02-25 Outpatient [facility] [id number] Memoria 14:30:00 14:30:00 04 gayle Barr 2018-02-24 2018-02-24 Emergency nullFlavo [facility] [id number] Memoria 21:16:00 23:51:00 eugenia Barr 17 l [place] 2018-02-24 2018-02-24 Emergency nullFlavo [facility] [id number] Memoria 21:16:00 23:51:00 eugenia Barr 17 l [place] 2018-02-24 2018-02-24 Outpatient Aniceto [facility] [id number] 16:16:00 18:51:00 Armond Miller 2018-01-27 2018-01-27 Emergency nullFlavo [facility] [id number] Memoria 19:45:00 22:45:00 r Momo 14 l [facility] 2018-01-27 2018-01-27 Emergency nullFlavo [facility] [id number] Memoria 19:45:00 22:45:00 eugenia Barr 14 [facility] 2018-01-27 2018-01-27 [facility] [id number] 14:45:00 17:45:00 , Malorie 14 2018-01-27 2018-01-27 Outpatient [facility] [id number] 14:45:00 17:45:00 , Malorie 14 2018-01-01 2018-01-01 Day nullFlavo [facility] [id number] Memoria 11:13:00 18:10:00 Surgery r Momo 11 l [facility] 2018-01-01 2018-01-01 Day nullFlavo [facility] [id number] Memoria 11:13:00 18:10:00 Surgery r Momo 11 l [facility] 2018-01-01 2018-01-01 Outpatient Juan Jose, [facility] [id number] 06:13:00 13:10:00 Janak Jaycob Fermín 2017-11-13 2017-11-13 Observatio nullFlavo [facility] [id number] Memoria 19:18:00 22:45:00 nico Barr 10 l [facility] 2017-11-13 2017-11-13 Observatio nullFlavo [facility] [id number] Memoria 19:18:00 22:45:00 n eugenia Barr 10 l [facility] 2017-11-13 2017-11-13 Outpatient Juan Jose [facility] [id number] 13:18:00 16:45:00 Janak Mabel Fermín 2017-09-01 2017-09-02 Outpatient nullFlavo [facility] [id number] Memoria 15:15:00 05:59:59 r Internal 03 l Medicine Momo Arthur 2017-09-01 2017-09-02 Outpatient nullFlavo [facility] [id number] Memoria 15:15:00 05:59:59 r Internal 03 l Medicine Momo Arthur 2017-09-01 2017-09-01 Outpatient JOHN Stevenson MG [id number] 09:15:00 23:59:59 Shira 03 2017-09-01 2017-09-01 Outpatient LUISITO GREWALIE [id number] Memoria 09:15:00 09:15:00 03 l Momo 2017-06-26 2017-06-26 Day nullFlavo [facility] [id number] Memoria 10:30:00 18:20:00 Surgery r [place] 08 [facility] 2017-06-26 2017-06-26 Day nullFlavo [facility] [id number] Memoria 10:30:00 18:20:00 Surgery r [place] 08 [facility] 2017-06-26 2017-06-26 Outpatient Juan Jose [facility] [id number] 05:30:00 13:20:00 Janak Tiffanie Kovacs 2017-05-15 2017-05-15 Day nullFlavo [facility] [id number] Memoria 11:00:00 19:20:00 Surgery r [place] 06 [facility] 2017-05-15 2017-05-15 Day nullFlavo [facility] [id number] Memoria 11:00:00 19:20:00 Surgery r [place] 06 [facility] 2017-05-15 2017-05-15 Outpatient Juan Jose [facility] [id number] 06:00:00 14:20:00 Janak Andrez Kovacs 2017-05-09 2017-05-10 Emergency nullFlavo [facility] [id number] Memoria 23:04:00 00:00:00 r Momo 07 l [place] 2017-05-09 2017-05-10 Emergency nullFlavo [facility] [id number] Memoria 23:04:00 00:00:00 r Momo 07 l [place] 2017-05-09 2017-05-09 Outpatient Eduin Tsai [facility] [id number] 18:04:00 19:00:00 Oli Thomason 2017-05-07 2017-05-07 Outpatient LUISITO JORGE [id number] Memoria 10:30:00 10:30:00 02 gayle Barr 2017-05-07 2017-05-07 Outpatient LUISITO JORGE [id number] Memoria 10:30:00 10:30:00 02 gayle Barr 2017-04-25 2017-04-25 Outpatient MHIE MHIE [id number] Memoria 14:45:00 14:45:00 01 gayle Barr 2017-04-25 2017-04-25 Outpatient MHIE MHIE [id number] Memoria 14:45:00 14:45:00 01 gayle Barr 2017-04-09 2017-04-11 Bedded nullFlavo [facility] [id number] Memoria 22:15:00 01:18:00 Outpatient r [place] 05 l [place] 2017-04-09 2017-04-11 Bedded nullFlavo [facility] [id number] Memoria 22:15:00 01:18:00 Outpatient r Momo 05 l [place] 2017-04-09 2017-04-10 Outpatient Chi, [place] [id number] 17:15:00 20:18:00 Pancho Elizabeth 2017-03-10 2017-03-18 Inpatient nullFlavo [facility] [id number] Memoria 21:21:00 18:26:00 r Momo 04 l [place] 2017-03-10 2017-03-18 Inpatient nullFlavo [facility] [id number] Memoria 21:21:00 18:26:00 r Momo 04 l [place] 2017-03-10 2017-03-18 Outpatient Haim, SL [place] [id number] 16:21:00 13:26:00 Mauricio Dorado 2017-03-07 2017-03-07 Outpatient CARMINAIE CARMINAIE [id number] Memoria 10:30:00 10:30:00 00 gayel Barr 2017-03-07 2017-03-07 Outpatient MHIE CARMINAIE [id number] Memoria 10:30:00 10:30:00 00 gayle Barr 2013-11-22 2013-11-27 Inpatient nullFlavo [facility] [id number] Memoria 18:37:00 02:10:00 r Momo _[id number] l [address] 2013-11-22 2013-11-27 Inpatient nullFlavo [facility] [id number] Memoria 18:37:00 02:10:00 r Momo _[id number] l [address] 2013-11-22 2013-11-26 Outpatient Gopathi, 2.16.840. [id number]. [id number] 12:37:00 20:10:00 Judy [id number] Arreola [id number] 9011-02-24 2013-11-22 Inpatient nullFlavo [place] [id number] Memoria 13:45:00 13:45:00 r [facility] 02 [facility] 2013-11-22 2013-11-22 Inpatient nullFlavo [place] [id number] Memoria 13:45:00 13:45:00 r [facility] 02 [facility] 2012-11-03 2012-11-03 Emergency nullFlavo [facility] 37 [id number] Memoria 07:28:00 09:57:00 r [facility] 2012-11-03 2012-11-03 Emergency nullFlavo [facility] 37 [id number] Memoria 07:28:00 09:57:00 [facility] 01 [facility] 2012-01-08 2012-01-08 Emergency nullFlavo [facility] 37 [id number] Memoria 09:38:00 17:44:00 r [facility] 00 [facility] 2012-01-08 2012-01-08 Emergency nullFlavo [facility] 37 [id number] Memoria 09:38:00 17:44:00 r [facility] 00 [facility] Results Test Description Test Time Test Comments Results Result Comments Source CHEMISTRY 2022-12-14 09:01:00 Test Item Value Reference Range Interpretation Comme nts Glucose Lvl (test code = Glucose Lvl) 86 70-99 [facility]ACFGWBAP9734-39-66 09:01:00 Test Item Value Reference Range Interpretation Comments BUN (test code = BUN) 24 7-22 [facility] HospitalUzwcblpMRUKKKYDD8785-83-88 09:01:00 Test Item Value Reference Range Interpretation Comments Creatinine Lvl (test code = Creatinine 6.44 0.50-1.40 Lvl) [facility] HospitalZcikzftCTIMOZCLP1168-68-57 09:01:00 Test Item Value Reference Range Interpretation Comments Sodium Lvl (test code = Sodium Lvl) 137 135-145 [facility] HospitalWofqdxsPZKRNTZVW6890-85-19 09:01:00 Test Item Value Reference Range Interpretation Comments Potassium Lvl (test code = Potassium 3.8 3.5-5.1 Lvl) [facility] HospitalDdgbwwnMNLKTEJHM3215-38-73 09:01:00 Test Item Value Reference Range Interpretation Comments Chloride Lvl (test code = Chloride Lvl) 104 95-109 [place] [address]-03-18 09:01:00 Test Item Value Reference Range Interpretation Comments CO2 (test code = CO2) 27 24-32 [place] 600583-03-18 09:01:00 Test Item Value Reference Range Interpretation Comments AGAP (test code = AGAP) 9.8 10.0-20.0 [place] [address]-03-18 09:01:00 Test Item Value Reference Range Interpretation Comments Calcium Lvl (test code = Calcium Lvl) 8.3 8.5-10.5 [place] [address]-03-18 09:01:00 Test Item Value Reference Range Interpretation Comments B/C Ratio (test code = B/C Ratio) 4 1 6-25 [place] [address]-03-18 09:01:00 Test Item Value Reference Range Interpretation Comments Total Protein (test code = Total 5.8 6.4-8.4 Protein) [facility] HospitalHyihsaoWKXIBTLZW6196-38-54 09:01:00 Test Item Value Reference Range Interpretation Comments Albumin Lvl (test code = Albumin Lvl) 2.9 3.5-5.0 [facility] HospitalWztexpzTGNEMBRBC3562-35-18 09:01:00 Test Item Value Reference Range Interpretation Comments Globulin (test code = Globulin) 2.9 2.7-4.2 [facility] HospitalXwjefazEPQVEHXUO0283-21-88 09:01:00 Test Item Value Reference Range Interpretation Comments A/G Ratio (test code = A/G Ratio) 1.0 1 0.7-1.6 [place] [address]-03-18 09:01:00 Test Item Value Reference Range Interpretation Comments ALT (test code = ALT) no gt See_Comment [Auto mated message] The system which ge nerated this result transmit cruz reference range : <=65. The reference range was not used to interpr et this result as gee l/abnormal. [place] 600583-03-18 09:01:00 Test Item Value Reference Range Interpretation Comments AST (test code = AST) 17 See_Comment [Auto mated message] The system which ge nerated this result transmit cruz reference range : <=37. The reference range was not used to interpr et this result as gee l/abnormal. [facility] HospitalWpfxcglADJQHNARZ8714-03-23 09:01:00 Test Item Value Reference Range Interpretation Comments Alk Phos (test code = Alk Phos) 79 39-136 [facility] HospitalHwwpdsqGPOCGYQJP0570-73-52 09:01:00 Test Item Value Reference Range Interpretation Comments Bili Total (test code = Bili Total) 0.6 0.2-1.3 [facility] HospitalWsccfhrGMUISQESR4248-09-37 09:01:00 Test Item Value Reference Range Interpretation Comments eGFR (test code = eGFR) 9 [facility] CenterIslhkwiCJIBQKMSZX7417-46-39 09:01:00 Test Item Value Reference Range Interpretation Comments WBC (test code = WBC) 6.8 3.7-10.4 [place] 313493-03-18 09:01:00 Test Item Value Reference Range Interpretation Comments RBC (test code = RBC) 2.72 4.70-6.10 [facility] CenterVepkkdvGFDMYRUOUX1297-74-28 09:01:00 Test Item Value Reference Range Interpretation Comments Hgb (test code = Hgb) 8.5 14.0-18.0 [facility] CenterBvpqdenJLMTFMYCZP8549-69-89 09:01:00 Test Item Value Reference Range Interpretation Comments Hct (test code = Hct) 25.7 42.0-54.0 [facility] CenterNhksyeiSDBAVFZVIJ0403-20-85 09:01:00 Test Item Value Reference Range Interpretation Comments MCV (test code = MCV) 94.4 80.0-94.0 [place] 313493-03-18 09:01:00 Test Item Value Reference Range Interpretation Comments MCH (test code = MCH) 31.1 pg 27.0-31.0 [facility] CenterCmalcbwCCNXLDCJEP0625-09-25 09:01:00 Test Item Value Reference Range Interpretation Comments MCHC (test code = MCHC) 32.9 32.0-36.0 [facility] CenterSpwhesaZZOEDIYUQH0940-63-71 09:01:00 Test Item Value Reference Range Interpretation Comments RDW (test code = RDW) 17.4 11.5-14.5 [facility] CenterIjlgjtbBQIESDBXBR4560-45-19 09:01:00 Test Item Value Reference Range Interpretation Comments Platelet (test code = Platelet) 180 133-450 [facility] CenterDqxszdcLGNOFMSUMY4093-66-97 09:01:00 Test Item Value Reference Range Interpretation Comments MPV (test code = MPV) 7.3 7.4-10.4 [facility] CenterOdcuvnyTJOFDBSAVZ3021-92-18 09:01:00 Test Item Value Reference Range Interpretation Comments Segs (test code = Segs) 63.6 45.0-75.0 [facility] CenterZzjblikLYWSCLWJSX6685-52-55 09:01:00 Test Item Value Reference Range Interpretation Comments Lymphocytes (test code = Lymphocytes) 18.7 20.0-40.0 [facility] CenterXlbpferLJRWGGXNBS6772-53-25 09:01:00 Test Item Value Reference Range Interpretation Comments Monocytes (test code = Monocytes) 10.6 2.0-12.0 [facility] CenterDqqflgvFCBJDKNOAO4811-86-80 09:01:00 Test Item Value Reference Range Interpretation Comments Eosinophils (test code = 6.1 See_Comment [A utomated message] The Eosinophils) system which ge nerated this result tra nsmitted reference range : <=4.0. The reference r jillian was not used to int erpret this result as normal/abnormal . [facility] CenterOrwhlxxLGEYKHEIEW5593-15-84 09:01:00 Test Item Value Reference Range Interpretation Comments Basophils (test code = 1.0 See_Comment [Aut omated message] The Basophils) system which ge nerated this result tra nsmitted reference range : <=1.0. The reference r jillian was not used to int erpret this result as normal/abnormal . [facility] CenterYpdosvjXHNBBCFYUS3487-09-44 09:01:00 Test Item Value Reference Range Interpretation Comments Neutrophils # (test code = Neutrophils 4.3 1.5-8.1 #) [facility] CenterBioyiljGIEVRIEFGV3047-49-37 09:01:00 Test Item Value Reference Range Interpretation Comments Lymphocytes # (test code = Lymphocytes 1.3 1.0-5.5 #) [facility] CenterKhmtlowKZECNYIVKV0719-67-41 09:01:00 Test Item Value Reference Range Interpretation Comments Monocytes # (test code 0.7 See_Comment [Aut omated message] The = Monocytes #) system which generated this result tra nsmitted reference range : <=0.8. The reference r jillian was not used to int erpret this result as normal/abnormal . [facility] CenterUwhtsjrJRMDFEQXNO2855-72-62 09:01:00 Test Item Value Reference Range Interpretation Comments Eosinophils # (test code 0.4 See_Comment [A utomated message] The = Eosinophils #) system whic h generated this result tra nsmitted reference range : <=0.5. The reference r jillian was not used to int erpret this result as normal/abnormal . [facility]LiufrhySTYFIPPMWM2930-83-77 09:01:00 Test Item Value Reference Range Interpretation Comments Basophils # (test code 0.1 See_Comment [Aut omated message] The = Basophils #) system which generated this result tra nsmitted reference range : <=0.2. The reference r jillian was not used to int erpret this result as normal/abnormal . [facility] HospitalYonzwahJOQCWPWFV0827-77-17 09:01:00 Test Item Value Reference Range Interpretation Comments Glucose Lvl (test code = Glucose Lvl) 86 70-99 [facility] HospitalFjinydpANRGGNUBV7531-95-75 09:01:00 Test Item Value Reference Range Interpretation Comments BUN (test code = BUN) 24 7-22 [facility]JxvowcaEUHWXNODS8529-86-07 09:01:00 Test Item Value Reference Range Interpretation Comments Creatinine Lvl (test code = Creatinine 6.44 0.50-1.40 Lvl) [facility]qmqefwXTCYHRWXF4693-65-45 09:01:00 Test Item Value Reference Range Interpretation Comments Sodium Lvl (test code = Sodium Lvl) 137 135-145 [facility] HospitalUvnqtspRPUQSZAKD6763-86-23 09:01:00 Test Item Value Reference Range Interpretation Comments Potassium Lvl (test code = Potassium 3.8 3.5-5.1 Lvl) [facility] HospitalFzbnsfvCECAEKZDE7264-75-99 09:01:00 Test Item Value Reference Range Interpretation Comments Chloride Lvl (test code = Chloride Lvl) 104 95-109 [facility] HospitalXkihvwhFFYZUKWIY8759-67-45 09:01:00 Test Item Value Reference Range Interpretation Comments CO2 (test code = CO2) 27 24-32 [facility] HospitalNizljmhTMYLRGBRL9195-65-68 09:01:00 Test Item Value Reference Range Interpretation Comments AGAP (test code = AGAP) 9.8 10.0-20.0 [facility] HospitalGnvhownPBNYFQIPI4238-74-06 09:01:00 Test Item Value Reference Range Interpretation Comments Calcium Lvl (test code = Calcium Lvl) 8.3 8.5-10.5 [facility] HospitalLjckgvvUAJYJUYFZ7905-05-56 09:01:00 Test Item Value Reference Range Interpretation Comments B/C Ratio (test code = B/C Ratio) 4 1 6-25 [facility]BoshaivDFVLOHAWI0546-26-68 09:01:00 Test Item Value Reference Range Interpretation Comments Total Protein (test code = Total 5.8 6.4-8.4 Protein) [facility] HospitalUtnduwrWRPZSGIKW7615-84-21 09:01:00 Test Item Value Reference Range Interpretation Comments Albumin Lvl (test code = Albumin Lvl) 2.9 3.5-5.0 [facility] HospitalPhzhcxjMHICSVBAJ1481-02-99 09:01:00 Test Item Value Reference Range Interpretation Comments Globulin (test code = Globulin) 2.9 2.7-4.2 [facility] HospitalIiyzqqiDDODVDWKY2948-44-04 09:01:00 Test Item Value Reference Range Interpretation Comments A/G Ratio (test code = A/G Ratio) 1.0 1 0.7-1.6 [facility] HospitalXjeeuecNSNFGHVEW7962-67-07 09:01:00 Test Item Value Reference Range Interpretation Comments ALT (test code = ALT) no gt See_Comment [Auto mated message] The system which ge nerated this result transmit cruz reference range : <=65. The reference range was not used to interpr et this result as gee l/abnormal. [facility] HospitalPvsgkghAXEGXGEKE6743-34-36 09:01:00 Test Item Value Reference Range Interpretation Comments AST (test code = AST) 17 See_Comment [Auto mated message] The system which ge nerated this result transmit cruz reference range : <=37. The reference range was not used to interpr et this result as gee l/abnormal. [facility] HospitalIepabxrZHNZNABBM6632-15-18 09:01:00 Test Item Value Reference Range Interpretation Comments Alk Phos (test code = Alk Phos) 79 39-136 [facility] HospitalFdszwtfGHSUUIIZJ0053-25-06 09:01:00 Test Item Value Reference Range Interpretation Comments Bili Total (test code = Bili Total) 0.6 0.2-1.3 [facility] HospitalOexaorjMVWFOSIIE4539-08-36 09:01:00 Test Item Value Reference Range Interpretation Comments eGFR (test code = eGFR) 9 [place] 313493-03-18 09:01:00 Test Item Value Reference Range Interpretation Comments WBC (test code = WBC) 6.8 3.7-10.4 [place] 313493-03-18 09:01:00 Test Item Value Reference Range Interpretation Comments RBC (test code = RBC) 2.72 4.70-6.10 [facility] CenterExkglrdGIMZSBIMEY8046-77-43 09:01:00 Test Item Value Reference Range Interpretation Comments Hgb (test code = Hgb) 8.5 14.0-18.0 [place] [address]-03-18 09:01:00 Test Item Value Reference Range Interpretation Comments Hct (test code = Hct) 25.7 42.0-54.0 [place] 313493-03-18 09:01:00 Test Item Value Reference Range Interpretation Comments MCV (test code = MCV) 94.4 80.0-94.0 [place] 313493-03-18 09:01:00 Test Item Value Reference Range Interpretation Comments MCH (test code = MCH) 31.1 pg 27.0-31.0 [place] 313493-03-18 09:01:00 Test Item Value Reference Range Interpretation Comments MCHC (test code = MCHC) 32.9 32.0-36.0 [facility] CenterMdplhylSIMREJUDXA7121-92-62 09:01:00 Test Item Value Reference Range Interpretation Comments RDW (test code = RDW) 17.4 11.5-14.5 [facility] CenterTaavqvfGAGNYIXHDH3592-56-29 09:01:00 Test Item Value Reference Range Interpretation Comments Platelet (test code = Platelet) 180 133-450 [facility] CenterDexdvcbUOKCDBXOCP2100-83-26 09:01:00 Test Item Value Reference Range Interpretation Comments MPV (test code = MPV) 7.3 7.4-10.4 [place] [address]-03-18 09:01:00 Test Item Value Reference Range Interpretation Comments Segs (test code = Segs) 63.6 45.0-75.0 [place] [address]-03-18 09:01:00 Test Item Value Reference Range Interpretation Comments Lymphocytes (test code = Lymphocytes) 18.7 20.0-40.0 [place] 313493-03-18 09:01:00 Test Item Value Reference Range Interpretation Comments Monocytes (test code = Monocytes) 10.6 2.0-12.0 [place] [address]-03-18 09:01:00 Test Item Value Reference Range Interpretation Comments Eosinophils (test code = 6.1 See_Comment [A utomated message] The Eosinophils) system which ge nerated this result tra nsmitted reference range : <=4.0. The reference r jillian was not used to int erpret this result as normal/abnormal . [place] [address]-03-18 09:01:00 Test Item Value Reference Range Interpretation Comments Basophils (test code = 1.0 See_Comment [Aut omated message] The Basophils) system which ge nerated this result tra nsmitted reference range : <=1.0. The reference r jillian was not used to int erpret this result as normal/abnormal . [address]03-18 09:01:00 Test Item Value Reference Range Interpretation Comments Neutrophils # (test code = Neutrophils 4.3 1.5-8.1 #) [place] [address]-03-18 09:01:00 Test Item Value Reference Range Interpretation Comments Lymphocytes # (test code = Lymphocytes 1.3 1.0-5.5 #) [place] [address]-03-18 09:01:00 Test Item Value Reference Range Interpretation Comments Monocytes # (test code 0.7 See_Comment [Aut omated message] The = Monocytes #) system which generated this result tra nsmitted reference range : <=0.8. The reference r jillian was not used to int erpret this result as normal/abnormal . [place] [address]-03-18 09:01:00 Test Item Value Reference Range Interpretation Comments Eosinophils # (test code 0.4 See_Comment [A utomated message] The = Eosinophils #) system whic h generated this result tra nsmitted reference range : <=0.5. The reference r jillian was not used to int erpret this result as normal/abnormal . [place] [address]-03-18 09:01:00 Test Item Value Reference Range Interpretation Comments Basophils # (test code 0.1 See_Comment [Aut omated message] The = Basophils #) system which generated this result tra nsmitted reference range : <=0.2. The reference r jillian was not used to int erpret this result as normal/abnormal . [facility]2023-03-18 01:43:00 Test Item Value Reference Range Interpretation Comments Glucose POC (test code = Glucose POC) 111 70-99 [facility]2023-03-18 01:43:00 Test Item Value Reference Range Interpretation Comments Gluc POC Comment 1 (test code Notified RN/MD = Gluc POC Comment 1) [place] 821813-03-18 01:43:00 Test Item Value Reference Range Interpretation Comments Glucose POC (test code = Glucose POC) 111 70-99 [facility]2023-03-18 01:43:00 Test Item Value Reference Range Interpretation Comments Gluc POC Comment 1 (test code Notified RN/MD = Gluc POC Comment 1) [facility] CenterWxcgxawLCIDTJWHEK0915-76-74 13:41:00 Test Item Value Reference Range Interpretation Comments RBC Morph (test code = Normal (12/13/22 8:41 RBC Morph) AM) [facility] CenterXtzihsfYZFOFOMWVU4944-88-72 13:41:00 Test Item Value Reference Range Interpretation Comments Plt Morph (test code = Normal (12/13/22 8:41 Plt Morph) AM) [facility] CenterXnifztqHZPJSTLWJD4043-23-28 13:41:00 Test Item Value Reference Range Interpretation Comments RBC Morph (test code = Normal (12/13/22 8:41 RBC Morph) AM) [facility] CenterIqaudwuRVADTXDYWN6788-94-75 13:41:00 Test Item Value Reference Range Interpretation Comments Plt Morph (test code = Normal (12/13/22 8:41 Plt Morph) AM) [facility] [id number] 02:46:00 Test Item Value Reference Range Interpretation Comments RBC product (test code Product available = RBC product) 2(12/12/22 9:46 PM) [facility] [id number] 02:46:00 Test Item Value Reference Range Interpretation Comments RBC product (test code Product available = RBC product) 2(12/12/22 9:46 PM) [facility] [id number] 17:51:00 Test Item Value Reference Range Interpretation Comments ABO/Rh (test code = ABO/Rh) O POS [facility] [id number] 17:51:00 Test Item Value Reference Range Interpretation Comments Antibody Scrn (test Negative (12/12/22 code = Antibody Scrn) 12:51 PM) [facility] [id number] 17:51:00 Test Item Value Reference Range Interpretation Comments ABO/Rh (test code = ABO/Rh) O POS [facility] [id number] 17:51:00 Test Item Value Reference Range Interpretation Comments Antibody Scrn (test Negative (12/12/22 code = Antibody Scrn) 12:51 PM) [facility] HospitalAxytcwuALPBZRIFZA5579-05-22 09:13:00 Test Item Value Reference Range Interpretation Comments Macrocyte (test code = 1+ *ABN*(12/12/22 Macrocyte) 4:13 AM) [facility] HospitalOmqlfwlLDDSTNANAJ0990-08-61 09:13:00 Test Item Value Reference Range Interpretation Comments Macrocyte (test code = 1+ *ABN*(12/12/22 Macrocyte) 4:13 AM) [facility]Ne[facility] [id number] 09:20:00 Test Item Value Reference Range Interpretation Comments Glucose Lvl (test code = Glucose Lvl) 84 70-99 [facility] [employer] [id number] 09:20:00 Test Item Value Reference Range Interpretation Comments BUN (test code = BUN) 71 7-22 [facility] [employer] [id number] 09:20:00 Test Item Value Reference Range Interpretation Comments Creatinine Lvl (test code = Creatinine 10.70 0.50-1.40 Lvl) [facility] [employer] [id number] 09:20:00 Test Item Value Reference Range Interpretation Comments Sodium Lvl (test code = Sodium Lvl) 133 135-145 [facility] [employer] [id number] 09:20:00 Test Item Value Reference Range Interpretation Comments Potassium Lvl (test code = Potassium 5.4 3.5-5.1 Lvl) [facility] [employer] [id number] 09:20:00 Test Item Value Reference Range Interpretation Comments Chloride Lvl (test code = Chloride Lvl) 102 95-109 [facility] [employer] [id number] 09:20:00 Test Item Value Reference Range Interpretation Comments CO2 (test code = CO2) 23 24-32 [facility] [id number] 09:20:00 Test Item Value Reference Range Interpretation Comments Calcium Lvl (test code = Calcium Lvl) 8.2 8.5-10.5 [facility]2023-03-13 09:20:00 Test Item Value Reference Range Interpretation Comments AGAP (test code = AGAP) 13.4 10.0-20.0 [facility]2023-03-13 09:20:00 Test Item Value Reference Range Interpretation Comments eGFR (test code = eGFR) 5 [facility]2023-03-13 09:20:00 Test Item Value Reference Range Interpretation Comments Glucose Lvl (test code = Glucose Lvl) 84 70-99 [facility]2023-03-13 09:20:00 Test Item Value Reference Range Interpretation Comments BUN (test code = BUN) 71 7-22 [facility]2023-03-13 09:20:00 Test Item Value Reference Range Interpretation Comments Creatinine Lvl (test code = Creatinine 10.70 0.50-1.40 Lvl) [facility]2023-03-13 09:20:00 Test Item Value Reference Range Interpretation Comments Sodium Lvl (test code = Sodium Lvl) 133 135-145 [facility]2023-03-13 09:20:00 Test Item Value Reference Range Interpretation Comments Potassium Lvl (test code = Potassium 5.4 3.5-5.1 Lvl) [facility]2023-03-13 09:20:00 Test Item Value Reference Range Interpretation Comments Chloride Lvl (test code = Chloride Lvl) 102 95-109 [facility]2023-03-13 09:20:00 Test Item Value Reference Range Interpretation Comments CO2 (test code = CO2) 23 24-32 [facility]2023-03-13 09:20:00 Test Item Value Reference Range Interpretation Comments Calcium Lvl (test code = Calcium Lvl) 8.2 8.5-10.5 [facility]2023-03-13 09:20:00 Test Item Value Reference Range Interpretation Comments AGAP (test code = AGAP) 13.4 10.0-20.0 [facility]2023-03-13 09:20:00 Test Item Value Reference Range Interpretation Comments eGFR (test code = eGFR) 5 [facility] [id number] 09:29:00 Test Item Value Reference Range Interpretation Comments Antibody Scrn (test Negative (12/08/22 4:29 code = Antibody Scrn) AM) [facility] [id number] 09:29:00 Test Item Value Reference Range Interpretation Comments ABO/Rh (test code = ABO/Rh) O POS [facility] [id number] 09:29:00 Test Item Value Reference Range Interpretation Comments Glucose Lvl (test code = Glucose Lvl) 101 70-99 [facility] [id number] 09:29:00 Test Item Value Reference Range Interpretation Comments BUN (test code = BUN) 62 7-22 [facility] [id number] 09:29:00 Test Item Value Reference Range Interpretation Comments Creatinine Lvl (test code = Creatinine 9.67 0.50-1.40 Lvl) [facility] [id number] 09:29:00 Test Item Value Reference Range Interpretation Comments Sodium Lvl (test code = Sodium Lvl) 133 135-145 [facility] [id number] 09:29:00 Test Item Value Reference Range Interpretation Comments Potassium Lvl (test code = Potassium 5.3 3.5-5.1 Lvl) [facility] [id number] 09:29:00 Test Item Value Reference Range Interpretation Comments Chloride Lvl (test code = Chloride Lvl) 103 95-109 [facility] [employer] [id number] 09:29:00 Test Item Value Reference Range Interpretation Comments CO2 (test code = CO2) 24 24-32 [facility] [id number] 09:29:00 Test Item Value Reference Range Interpretation Comments AGAP (test code = AGAP) 11.3 10.0-20.0 [facility] [id number] 09:29:00 Test Item Value Reference Range Interpretation Comments Calcium Lvl (test code = Calcium Lvl) 8.2 8.5-10.5 [facility] [id number] 09:29:00 Test Item Value Reference Range Interpretation Comments eGFR (test code = eGFR) 6 [facility] HospitalJztyucvNYJIPDGNEE9969-05-48 09:29:00 Test Item Value Reference Range Interpretation Comments WBC (test code = WBC) 9.0 3.7-10.4 [place] [address]-03-12 09:29:00 Test Item Value Reference Range Interpretation Comments RBC (test code = RBC) 3.27 4.70-6.10 [place] [address]-03-12 09:29:00 Test Item Value Reference Range Interpretation Comments Hgb (test code = Hgb) 11.1 14.0-18.0 [place] [address]-03-12 09:29:00 Test Item Value Reference Range Interpretation Comments Hct (test code = Hct) 33.7 42.0-54.0 [place] [address]-03-12 09:29:00 Test Item Value Reference Range Interpretation Comments MCV (test code = MCV) 102.8 80.0-94.0 [place] [address]-03-12 09:29:00 Test Item Value Reference Range Interpretation Comments MCH (test code = MCH) 33.8 pg 27.0-31.0 [place] [address]-03-12 09:29:00 Test Item Value Reference Range Interpretation Comments MCHC (test code = MCHC) 32.9 32.0-36.0 [place] [address]-03-12 09:29:00 Test Item Value Reference Range Interpretation Comments RDW (test code = RDW) 15.0 11.5-14.5 [place] [address]-03-12 09:29:00 Test Item Value Reference Range Interpretation Comments Platelet (test code = Platelet) 188 133-450 [place] [address]493-03-12 09:29:00 Test Item Value Reference Range Interpretation Comments MPV (test code = MPV) 8.6 7.4-10.4 [place] [address]-03-12 09:29:00 Test Item Value Reference Range Interpretation Comments PT (test code = PT) 14.5 s 12.0-14.7 [place] [address]-03-12 09:29:00 Test Item Value Reference Range Interpretation Comments INR (test code = INR) 1.13 1 0.85-1.17 [place] [address]-03-12 09:29:00 Test Item Value Reference Range Interpretation Comments PTT (test code = PTT) 32.1 s 22.9-35.8 [place] [address]-03-12 09:29:00 Test Item Value Reference Range Interpretation Comments Segs (test code = Segs) 70.6 45.0-75.0 [place] [address]-03-12 09:29:00 Test Item Value Reference Range Interpretation Comments Lymphocytes (test code = Lymphocytes) 18.1 20.0-40.0 [place] [address]-03-12 09:29:00 Test Item Value Reference Range Interpretation Comments Monocytes (test code = Monocytes) 10.7 2.0-12.0 [place] [address]-03-12 09:29:00 Test Item Value Reference Range Interpretation Comments Eosinophils (test code = 0.2 See_Comment [A utomated message] The Eosinophils) system which ge nerated this result tra nsmitted reference range : <=4.0. The reference r jillian was not used to int erpret this result as normal/abnormal . [place] [address]-03-12 09:29:00 Test Item Value Reference Range Interpretation Comments Basophils (test code = 0.4 See_Comment [Aut omated message] The Basophils) system which ge nerated this result tra nsmitted reference range : <=1.0. The reference r jillian was not used to int erpret this result as normal/abnormal . [place] [address]493-03-12 09:29:00 Test Item Value Reference Range Interpretation Comments Neutrophils # (test code = Neutrophils 6.4 1.5-8.1 #) [place] [address]-03-12 09:29:00 Test Item Value Reference Range Interpretation Comments Lymphocytes # (test code = Lymphocytes 1.6 1.0-5.5 #) [place] [address]-03-12 09:29:00 Test Item Value Reference Range Interpretation Comments Monocytes # (test code 1.0 See_Comment [Aut omated message] The = Monocytes #) system which generated this result tra nsmitted reference range : <=0.8. The reference r jillian was not used to int erpret this result as normal/abnormal . [place] 313493-03-12 09:29:00 Test Item Value Reference Range Interpretation Comments Macrocyte (test code = 1+ *ABN*(12/08/22 Macrocyte) 4:29 AM) [place] [address]-03-12 09:29:00 Test Item Value Reference Range Interpretation Comments PT (test code = PT) 14.5 s 12.0-14.7 [facility] [id number] 09:29:00 Test Item Value Reference Range Interpretation Comments INR (test code = INR) 1.13 1 0.85-1.17 [facility] HospitalKinkqkwRCZOKUQFRK8798-23-26 09:29:00 Test Item Value Reference Range Interpretation Comments PTT (test code = PTT) 32.1 s 22.9-35.8 [facility] [employer] [id number] 09:29:00 Test Item Value Reference Range Interpretation Comments Antibody Scrn (test Negative (12/08/22 4:29 code = Antibody Scrn) AM) [facility] [employer] [id number] 09:29:00 Test Item Value Reference Range Interpretation Comments ABO/Rh (test code = ABO/Rh) O POS [facility] [employer] [id number] 09:29:00 Test Item Value Reference Range Interpretation Comments Glucose Lvl (test code = Glucose Lvl) 101 70-99 [facility] [employer] [id number] 09:29:00 Test Item Value Reference Range Interpretation Comments BUN (test code = BUN) 62 7-22 [facility] [employer] [id number] 09:29:00 Test Item Value Reference Range Interpretation Comments Creatinine Lvl (test code = Creatinine 9.67 0.50-1.40 Lvl) [facility] [employer] [id number] 09:29:00 Test Item Value Reference Range Interpretation Comments Sodium Lvl (test code = Sodium Lvl) 133 135-145 [facility] [employer] [id number] 09:29:00 Test Item Value Reference Range Interpretation Comments Potassium Lvl (test code = Potassium 5.3 3.5-5.1 Lvl) [facility] [employer] [id number] 09:29:00 Test Item Value Reference Range Interpretation Comments Chloride Lvl (test code = Chloride Lvl) 103 95-109 [facility] [employer] [id number] 09:29:00 Test Item Value Reference Range Interpretation Comments CO2 (test code = CO2) 24 24-32 [facility] [employer] [id number] 09:29:00 Test Item Value Reference Range Interpretation Comments AGAP (test code = AGAP) 11.3 10.0-20.0 [facility]2023-03-12 09:29:00 Test Item Value Reference Range Interpretation Comments Calcium Lvl (test code = Calcium Lvl) 8.2 8.5-10.5 [facility]2023-03-12 09:29:00 Test Item Value Reference Range Interpretation Comments eGFR (test code = eGFR) 6 [place] 313493-03-12 09:29:00 Test Item Value Reference Range Interpretation Comments WBC (test code = WBC) 9.0 3.7-10.4 [place] [address]-03-12 09:29:00 Test Item Value Reference Range Interpretation Comments RBC (test code = RBC) 3.27 4.70-6.10 [place] [address]-03-12 09:29:00 Test Item Value Reference Range Interpretation Comments Hgb (test code = Hgb) 11.1 14.0-18.0 [place] [address]-03-12 09:29:00 Test Item Value Reference Range Interpretation Comments Hct (test code = Hct) 33.7 42.0-54.0 [place] [address]-03-12 09:29:00 Test Item Value Reference Range Interpretation Comments MCV (test code = MCV) 102.8 80.0-94.0 [place] [address]-03-12 09:29:00 Test Item Value Reference Range Interpretation Comments MCH (test code = MCH) 33.8 pg 27.0-31.0 [place] [address]-03-12 09:29:00 Test Item Value Reference Range Interpretation Comments MCHC (test code = MCHC) 32.9 32.0-36.0 [place] [address]-03-12 09:29:00 Test Item Value Reference Range Interpretation Comments RDW (test code = RDW) 15.0 11.5-14.5 [place] [address]-03-12 09:29:00 Test Item Value Reference Range Interpretation Comments Platelet (test code = Platelet) 188 133-450 [place] 313493-03-12 09:29:00 Test Item Value Reference Range Interpretation Comments MPV (test code = MPV) 8.6 7.4-10.4 [place] 313493-03-12 09:29:00 Test Item Value Reference Range Interpretation Comments PT (test code = PT) 14.5 s 12.0-14.7 [place] [address]-03-12 09:29:00 Test Item Value Reference Range Interpretation Comments INR (test code = INR) 1.13 1 0.85-1.17 [place] [address]-03-12 09:29:00 Test Item Value Reference Range Interpretation Comments PTT (test code = PTT) 32.1 s 22.9-35.8 [place] [address]-03-12 09:29:00 Test Item Value Reference Range Interpretation Comments Segs (test code = Segs) 70.6 45.0-75.0 [place] [address]-03-12 09:29:00 Test Item Value Reference Range Interpretation Comments Lymphocytes (test code = Lymphocytes) 18.1 20.0-40.0 [place] [address]-03-12 09:29:00 Test Item Value Reference Range Interpretation Comments Monocytes (test code = Monocytes) 10.7 2.0-12.0 [place] [address]-03-12 09:29:00 Test Item Value Reference Range Interpretation Comments Eosinophils (test code = 0.2 See_Comment [A utomated message] The Eosinophils) system which ge nerated this result tra nsmitted reference range : <=4.0. The reference r jillian was not used to int erpret this result as normal/abnormal . [place] 313493-03-12 09:29:00 Test Item Value Reference Range Interpretation Comments Basophils (test code = 0.4 See_Comment [Aut omated message] The Basophils) system which ge nerated this result tra nsmitted reference range : <=1.0. The reference r jillian was not used to int erpret this result as normal/abnormal . [place] 313493-03-12 09:29:00 Test Item Value Reference Range Interpretation Comments Neutrophils # (test code = Neutrophils 6.4 1.5-8.1 #) [place] [address]493-03-12 09:29:00 Test Item Value Reference Range Interpretation Comments Lymphocytes # (test code = Lymphocytes 1.6 1.0-5.5 #) [place] 313493-03-12 09:29:00 Test Item Value Reference Range Interpretation Comments Monocytes # (test code 1.0 See_Comment [Aut omated message] The = Monocytes #) system which generated this result tra nsmitted reference range : <=0.8. The reference r jillian was not used to int erpret this result as normal/abnormal . [facility]NjwwcrxOANSRGYSTF8917-94-72 09:29:00 Test Item Value Reference Range Interpretation Comments Macrocyte (test code = 1+ *ABN*(12/08/22 Macrocyte) 4:29 AM) [place] [address]-03-12 09:29:00 Test Item Value Reference Range Interpretation Comments PT (test code = PT) 14.5 s 12.0-14.7 [place] [address]-03-12 09:29:00 Test Item Value Reference Range Interpretation Comments INR (test code = INR) 1.13 1 0.85-1.17 [place] [address]-03-12 09:29:00 Test Item Value Reference Range Interpretation Comments PTT (test code = PTT) 32.1 s 22.9-35.8 [place] 664503-03-11 11:20:00 Test Item Value Reference Range Interpretation Comments Glucose Lvl (test code = Glucose Lvl) 125 70-99 [facility] [id number] 11:20:00 Test Item Value Reference Range Interpretation Comments BUN (test code = BUN) 49 7-22 [facility]2023-03-11 11:20:00 Test Item Value Reference Range Interpretation Comments Creatinine Lvl (test code = Creatinine 8.68 0.50-1.40 Lvl) [facility]2023-03-11 11:20:00 Test Item Value Reference Range Interpretation Comments Sodium Lvl (test code = Sodium Lvl) 131 135-145 [facility] [id number] 11:20:00 Test Item Value Reference Range Interpretation Comments Potassium Lvl (test code = Potassium 5.4 3.5-5.1 Lvl) [facility]2023-03-11 11:20:00 Test Item Value Reference Range Interpretation Comments Chloride Lvl (test code = Chloride Lvl) 102 95-109 [place] 664503-03-11 11:20:00 Test Item Value Reference Range Interpretation Comments CO2 (test code = CO2) 22 24-32 [facility] [id number] 11:20:00 Test Item Value Reference Range Interpretation Comments AGAP (test code = AGAP) 12.4 10.0-20.0 [facility] [id number] 11:20:00 Test Item Value Reference Range Interpretation Comments Calcium Lvl (test code = Calcium Lvl) 8.8 8.5-10.5 [facility] [id number] 11:20:00 Test Item Value Reference Range Interpretation Comments eGFR (test code = eGFR) 7 [facility] CenterZlazlpnJRGICRWHNE0630-59-27 11:20:00 Test Item Value Reference Range Interpretation Comments WBC (test code = WBC) 13.5 3.7-10.4 [facility] CenterAdvrbatYJCQIFNKML6632-96-09 11:20:00 Test Item Value Reference Range Interpretation Comments RBC (test code = RBC) 3.62 4.70-6.10 [facility] CenterIjqaiexTNNKOGWBPS4184-43-90 11:20:00 Test Item Value Reference Range Interpretation Comments Hgb (test code = Hgb) 12.1 14.0-18.0 [facility] CenterWaxpgqeTCTAUGNQWU1112-23-86 11:20:00 Test Item Value Reference Range Interpretation Comments Hct (test code = Hct) 37.2 42.0-54.0 [facility] CenterSrvtuqwNPMQQQEXPM8509-89-40 11:20:00 Test Item Value Reference Range Interpretation Comments MCV (test code = MCV) 102.8 80.0-94.0 [facility] CenterEqgpqgfTLHJJVHGBZ2499-11-14 11:20:00 Test Item Value Reference Range Interpretation Comments MCH (test code = MCH) 33.5 pg 27.0-31.0 [facility] CenterUnimwytKKFVZBUZTF1620-08-33 11:20:00 Test Item Value Reference Range Interpretation Comments MCHC (test code = MCHC) 32.6 32.0-36.0 [facility] CenterUznlssuNXYPCAXBLI6980-62-81 11:20:00 Test Item Value Reference Range Interpretation Comments RDW (test code = RDW) 15.1 11.5-14.5 [facility] CenterTmvvfocRQBLRCEMJK9356-21-37 11:20:00 Test Item Value Reference Range Interpretation Comments Platelet (test code = Platelet) 195 133-450 [facility] CenterCzyqpfyOWWVOXYYKM3214-52-98 11:20:00 Test Item Value Reference Range Interpretation Comments MPV (test code = MPV) 8.4 7.4-10.4 [place] 313493-03-11 11:20:00 Test Item Value Reference Range Interpretation Comments Segs (test code = Segs) 84.0 45.0-75.0 [place] 313493-03-11 11:20:00 Test Item Value Reference Range Interpretation Comments Lymphocytes (test code = Lymphocytes) 6.4 20.0-40.0 [place] [address]-03-11 11:20:00 Test Item Value Reference Range Interpretation Comments Monocytes (test code = Monocytes) 9.5 2.0-12.0 [place] [address]-03-11 11:20:00 Test Item Value Reference Range Interpretation Comments Basophils (test code = 0.1 See_Comment [Aut omated message] The Basophils) system which ge nerated this result tra nsmitted reference range : <=1.0. The reference r jillian was not used to int erpret this result as normal/abnormal . [place] 313493-03-11 11:20:00 Test Item Value Reference Range Interpretation Comments Neutrophils # (test code = Neutrophils 11.4 1.5-8.1 #) [place] 313493-03-11 11:20:00 Test Item Value Reference Range Interpretation Comments Lymphocytes # (test code = Lymphocytes 0.9 1.0-5.5 #) [place] [address]-03-11 11:20:00 Test Item Value Reference Range Interpretation Comments Monocytes # (test code 1.3 See_Comment [Aut omated message] The = Monocytes #) system which generated this result tra nsmitted reference range : <=0.8. The reference r jillian was not used to int erpret this result as normal/abnormal . [place] 313493-03-11 11:20:00 Test Item Value Reference Range Interpretation Comments Macrocyte (test code = 1+ *ABN*(12/07/22 Macrocyte) 5:20 AM) [place] 664503-03-11 11:20:00 Test Item Value Reference Range Interpretation Comments Glucose Lvl (test code = Glucose Lvl) 125 70-99 [place] 664503-03-11 11:20:00 Test Item Value Reference Range Interpretation Comments BUN (test code = BUN) 49 7-22 [place] 664503-03-11 11:20:00 Test Item Value Reference Range Interpretation Comments Creatinine Lvl (test code = Creatinine 8.68 0.50-1.40 Lvl) [facility]2023-03-11 11:20:00 Test Item Value Reference Range Interpretation Comments Sodium Lvl (test code = Sodium Lvl) 131 135-145 [place] 664503-03-11 11:20:00 Test Item Value Reference Range Interpretation Comments Potassium Lvl (test code = Potassium 5.4 3.5-5.1 Lvl) [place] 664503-03-11 11:20:00 Test Item Value Reference Range Interpretation Comments Chloride Lvl (test code = Chloride Lvl) 102 95-109 [place] 664503-03-11 11:20:00 Test Item Value Reference Range Interpretation Comments CO2 (test code = CO2) 22 24-32 [place] 664503-03-11 11:20:00 Test Item Value Reference Range Interpretation Comments AGAP (test code = AGAP) 12.4 10.0-20.0 [place] 664503-03-11 11:20:00 Test Item Value Reference Range Interpretation Comments Calcium Lvl (test code = Calcium Lvl) 8.8 8.5-10.5 [place] 664503-03-11 11:20:00 Test Item Value Reference Range Interpretation Comments eGFR (test code = eGFR) 7 [facility] CenterSjasuevYOOTWNMUBJ1361-79-42 11:20:00 Test Item Value Reference Range Interpretation Comments WBC (test code = WBC) 13.5 3.7-10.4 [place] 313493-03-11 11:20:00 Test Item Value Reference Range Interpretation Comments RBC (test code = RBC) 3.62 4.70-6.10 [place] [address]-03-11 11:20:00 Test Item Value Reference Range Interpretation Comments Hgb (test code = Hgb) 12.1 14.0-18.0 [place] [address]-03-11 11:20:00 Test Item Value Reference Range Interpretation Comments Hct (test code = Hct) 37.2 42.0-54.0 [place] 313493-03-11 11:20:00 Test Item Value Reference Range Interpretation Comments MCV (test code = MCV) 102.8 80.0-94.0 [place] 313493-03-11 11:20:00 Test Item Value Reference Range Interpretation Comments MCH (test code = MCH) 33.5 pg 27.0-31.0 [place] 313493-03-11 11:20:00 Test Item Value Reference Range Interpretation Comments MCHC (test code = MCHC) 32.6 32.0-36.0 [place] 313493-03-11 11:20:00 Test Item Value Reference Range Interpretation Comments RDW (test code = RDW) 15.1 11.5-14.5 [place] 313493-03-11 11:20:00 Test Item Value Reference Range Interpretation Comments Platelet (test code = Platelet) 195 133-450 [facility] CenterKgzoizyQHVMCCUYLJ6237-00-68 11:20:00 Test Item Value Reference Range Interpretation Comments MPV (test code = MPV) 8.4 7.4-10.4 [facility] CenterZydxgfqFMSFSTHJAO6753-21-96 11:20:00 Test Item Value Reference Range Interpretation Comments Segs (test code = Segs) 84.0 45.0-75.0 [facility] CenterOhfaduxBPNGWTEERM7959-85-03 11:20:00 Test Item Value Reference Range Interpretation Comments Lymphocytes (test code = Lymphocytes) 6.4 20.0-40.0 [place] 313493-03-11 11:20:00 Test Item Value Reference Range Interpretation Comments Monocytes (test code = Monocytes) 9.5 2.0-12.0 [place] 313493-03-11 11:20:00 Test Item Value Reference Range Interpretation Comments Basophils (test code = 0.1 See_Comment [Aut omated message] The Basophils) system which ge nerated this result tra nsmitted reference range : <=1.0. The reference r jillian was not used to int erpret this result as normal/abnormal . [facility] CenterMjftqcnNONMUTDOCC7603-97-91 11:20:00 Test Item Value Reference Range Interpretation Comments Neutrophils # (test code = Neutrophils 11.4 1.5-8.1 #) [facility] CenterRaamtsfMAABVYOLJN9079-95-71 11:20:00 Test Item Value Reference Range Interpretation Comments Lymphocytes # (test code = Lymphocytes 0.9 1.0-5.5 #) [place] 313493-03-11 11:20:00 Test Item Value Reference Range Interpretation Comments Monocytes # (test code 1.3 See_Comment [Aut omated message] The = Monocytes #) system which generated this result tra nsmitted reference range : <=0.8. The reference r jillian was not used to int erpret this result as normal/abnormal . [place] 313493-03-11 11:20:00 Test Item Value Reference Range Interpretation Comments Macrocyte (test code = 1+ *ABN*(12/07/22 Macrocyte) 5:20 AM) [place] 821813-03-10 15:43:00 Test Item Value Reference Range Interpretation Comments Gluc POC Comment 2 (test code = Cleaned Meter Gluc POC Comment 2) [place] 821813-03-10 15:43:00 Test Item Value Reference Range Interpretation Comments Gluc POC Comment 2 (test code = Cleaned Meter Gluc POC Comment 2) [place] 313493-03-10 14:37:00 Test Item Value Reference Range Interpretation Comments WBC (test code = WBC) 8.5 3.7-10.4 [place] [address]-03-10 14:37:00 Test Item Value Reference Range Interpretation Comments RBC (test code = RBC) 3.56 4.70-6.10 [place] [address]-03-10 14:37:00 Test Item Value Reference Range Interpretation Comments Hgb (test code = Hgb) 12.1 14.0-18.0 [place] [address]-03-10 14:37:00 Test Item Value Reference Range Interpretation Comments Hct (test code = Hct) 37.2 42.0-54.0 [place] [address]-03-10 14:37:00 Test Item Value Reference Range Interpretation Comments MCV (test code = MCV) 104.6 80.0-94.0 [place] [address]-03-10 14:37:00 Test Item Value Reference Range Interpretation Comments MCH (test code = MCH) 33.9 pg 27.0-31.0 [place] [address]-03-10 14:37:00 Test Item Value Reference Range Interpretation Comments MCHC (test code = MCHC) 32.4 32.0-36.0 [facility] CenterFdtbccsXBJYNYXFPM4796-40-17 14:37:00 Test Item Value Reference Range Interpretation Comments RDW (test code = RDW) 15.1 11.5-14.5 [place] 313493-03-10 14:37:00 Test Item Value Reference Range Interpretation Comments Platelet (test code = Platelet) 189 133-450 [facility] CenterExziqfiOPFIUYOTCI3833-44-44 14:37:00 Test Item Value Reference Range Interpretation Comments MPV (test code = MPV) 7.9 7.4-10.4 [facility] CenterMungelqIANRIWIJAE5080-33-59 14:37:00 Test Item Value Reference Range Interpretation Comments WBC (test code = WBC) 8.5 3.7-10.4 [facility] CenterIihnjeuWGZUXVKIZZ3313-06-06 14:37:00 Test Item Value Reference Range Interpretation Comments RBC (test code = RBC) 3.56 4.70-6.10 [facility] CenterOntvgpmYIYCKVIJUO8656-12-59 14:37:00 Test Item Value Reference Range Interpretation Comments Hgb (test code = Hgb) 12.1 14.0-18.0 [facility] CenterRptgnoqEXGPGSZVMR2968-23-19 14:37:00 Test Item Value Reference Range Interpretation Comments Hct (test code = Hct) 37.2 42.0-54.0 [facility] CenterWadxuhrZWVBRKWADF9910-13-98 14:37:00 Test Item Value Reference Range Interpretation Comments MCV (test code = MCV) 104.6 80.0-94.0 [place] 313493-03-10 14:37:00 Test Item Value Reference Range Interpretation Comments MCH (test code = MCH) 33.9 pg 27.0-31.0 [facility] CenterRrvzdulQPLPBFZFKS7647-70-23 14:37:00 Test Item Value Reference Range Interpretation Comments MCHC (test code = MCHC) 32.4 32.0-36.0 [facility] CenterNhcmvhpGFEJTUHEWQ6345-98-43 14:37:00 Test Item Value Reference Range Interpretation Comments RDW (test code = RDW) 15.1 11.5-14.5 [facility] CenterZvhroceSNERQXJWOY1863-90-17 14:37:00 Test Item Value Reference Range Interpretation Comments Platelet (test code = Platelet) 189 133-450 [facility] CenterKbbsytaUTAOZYJRVB4612-93-87 14:37:00 Test Item Value Reference Range Interpretation Comments MPV (test code = MPV) 7.9 7.4-10.4 [facility] CenterYlfbcumPIXVWI3004-96-72 13:44:17 Test Item Value Reference Range Interpretation [...] placement. Matty Cote MD On 12/06/2022 07:43:05; [id number] [place] 37506023-03-10 13:44:17 Test Item Value Reference Range Interpretation [...] placement. Matty Cote MD On 12/06/2022 07:43:05; [id number] [facility] HospitalJvlhigaJRVVNJIVEX2978-07-05 18:34:00 Test Item Value Reference Range Interpretation Comments Coronavirus (COVID-19) Not Detected (12/05/22 CHUCKIE (test code = 12:34 PM) Coronavirus (COVID-19) CHUCKIE) [facility]ME[facility]UIV8131[facility]25-64 18:34:00 Test Item Value Reference Range Interpretation Comments Coronavirus (COVID-19) Not Detected (12/05/22 CHUCKIE (test code = 12:34 PM) Coronavirus (COVID-19) CHUCKIE) [place] 806673-03-09 18:34:00 Test Item Value Reference Range Interpretation Comments Coronavirus (COVID-19) Not Detected (12/05/22 CHUCKIE (test code = 12:34 PM) Coronavirus (COVID-19) CHUCKIE) [facility] HospitalGgxodkwBRPKGQLYUX1046-21-06 18:34:00 Test Item Value Reference Range Interpretation Comments Coronavirus (COVID-19) Not Detected (12/05/22 CHUCKIE (test code = 12:34 PM) Coronavirus (COVID-19) CHUCKIE) [facility] CenterUqqwfxfPMTSKWXGOP0544-47-20 23:51:00 Test Item Value Reference Range Interpretation Comments PT (test code = PT) 14.3 s 12.0-14.7 [place] [address]-03-08 23:51:00 Test Item Value Reference Range Interpretation Comments INR (test code = INR) 1.11 1 0.85-1.17 [place] [address]-03-08 23:51:00 Test Item Value Reference Range Interpretation Comments PTT (test code = PTT) 32.3 s 22.9-35.8 [place] [address]-03-08 23:51:00 Test Item Value Reference Range Interpretation Comments Segs (test code = Segs) 74.5 45.0-75.0 [place] [address]-03-08 23:51:00 Test Item Value Reference Range Interpretation Comments Lymphocytes (test code = Lymphocytes) 15.6 20.0-40.0 [place] [address]-03-08 23:51:00 Test Item Value Reference Range Interpretation Comments Monocytes (test code = Monocytes) 6.9 2.0-12.0 [place] [address]-03-08 23:51:00 Test Item Value Reference Range Interpretation Comments Eosinophils (test code = 2.3 See_Comment [A utomated message] The Eosinophils) system which ge nerated this result tra nsmitted reference range : <=4.0. The reference r jillian was not used to int erpret this result as normal/abnormal . [facility] CenterBanzngbCBWHSEJDUK2418-90-77 23:51:00 Test Item Value Reference Range Interpretation Comments Basophils (test code = 0.7 See_Comment [Aut omated message] The Basophils) system which ge nerated this result tra nsmitted reference range : <=1.0. The reference r jillian was not used to int erpret this result as normal/abnormal . [place] 313493-03-08 23:51:00 Test Item Value Reference Range Interpretation Comments Neutrophils # (test code = Neutrophils 6.1 1.5-8.1 #) [place] 313493-03-08 23:51:00 Test Item Value Reference Range Interpretation Comments Lymphocytes # (test code = Lymphocytes 1.3 1.0-5.5 #) [place] [address]-03-08 23:51:00 Test Item Value Reference Range Interpretation Comments Monocytes # (test code 0.6 See_Comment [Aut omated message] The = Monocytes #) system which generated this result tra nsmitted reference range : <=0.8. The reference r jillian was not used to int erpret this result as normal/abnormal . [facility] CenterAjbhfggFJXNGLAIAI0370-22-85 23:51:00 Test Item Value Reference Range Interpretation Comments Eosinophils # (test code 0.2 See_Comment [A utomated message] The = Eosinophils #) system whic h generated this result tra nsmitted reference range : <=0.5. The reference r jillian was not used to int erpret this result as normal/abnormal . [place] 313493-03-08 23:51:00 Test Item Value Reference Range Interpretation Comments Basophils # (test code 0.1 See_Comment [Aut omated message] The = Basophils #) system which generated this result tra nsmitted reference range : <=0.2. The reference r jillian was not used to int erpret this result as normal/abnormal . [place] 313493-03-08 23:51:00 Test Item Value Reference Range Interpretation Comments Macrocyte (test code = 1+ *ABN*(12/04/22 5:51 Macrocyte) PM) [place] [address]-03-08 23:51:00 Test Item Value Reference Range Interpretation Comments PT (test code = PT) 14.3 s 12.0-14.7 [place] [address]-03-08 23:51:00 Test Item Value Reference Range Interpretation Comments INR (test code = INR) 1.11 1 0.85-1.17 [place] [address]-03-08 23:51:00 Test Item Value Reference Range Interpretation Comments PTT (test code = PTT) 32.3 s 22.9-35.8 [place] 313493-03-08 23:51:00 Test Item Value Reference Range Interpretation Comments Segs (test code = Segs) 74.5 45.0-75.0 [place] [address]-03-08 23:51:00 Test Item Value Reference Range Interpretation Comments Lymphocytes (test code = Lymphocytes) 15.6 20.0-40.0 [place] [address]-03-08 23:51:00 Test Item Value Reference Range Interpretation Comments Monocytes (test code = Monocytes) 6.9 2.0-12.0 [place] [address]-03-08 23:51:00 Test Item Value Reference Range Interpretation Comments Eosinophils (test code = 2.3 See_Comment [A utomated message] The Eosinophils) system which ge nerated this result tra nsmitted reference range : <=4.0. The reference r jillian was not used to int erpret this result as normal/abnormal . [facility] CenterClxloeoZEFTZTJNSH7442-18-57 23:51:00 Test Item Value Reference Range Interpretation Comments Basophils (test code = 0.7 See_Comment [Aut omated message] The Basophils) system which ge nerated this result tra nsmitted reference range : <=1.0. The reference r jillian was not used to int erpret this result as normal/abnormal . [place] [address]-03-08 23:51:00 Test Item Value Reference Range Interpretation Comments Neutrophils # (test code = Neutrophils 6.1 1.5-8.1 #) [place] [address]-03-08 23:51:00 Test Item Value Reference Range Interpretation Comments Lymphocytes # (test code = Lymphocytes 1.3 1.0-5.5 #) [place] [address]-03-08 23:51:00 Test Item Value Reference Range Interpretation Comments Monocytes # (test code 0.6 See_Comment [Aut omated message] The = Monocytes #) system which generated this result tra nsmitted reference range : <=0.8. The reference r jillian was not used to int erpret this result as normal/abnormal . [facility] CenterIwmjshdZQKOGKSFTW4047-03-87 23:51:00 Test Item Value Reference Range Interpretation Comments Eosinophils # (test code 0.2 See_Comment [A utomated message] The = Eosinophils #) system whic h generated this result tra nsmitted reference range : <=0.5. The reference r jillian was not used to int erpret this result as normal/abnormal . [facility] CenterEhlrsceOUYMFRIERV3537-99-55 23:51:00 Test Item Value Reference Range Interpretation Comments Basophils # (test code 0.1 See_Comment [Aut omated message] The = Basophils #) system which generated this result tra nsmitted reference range : <=0.2. The reference r jillian was not used to int erpret this result as normal/abnormal . [facility] CenterQlhixaiSSDAKXYTUF0594-06-15 23:51:00 Test Item Value Reference Range Interpretation Comments Macrocyte (test code = 1+ *ABN*(12/04/22 5:51 Macrocyte) PM) [facility] HospitalTxkhphdEEZXUVYPZX3693-56-02 15:58:00 Test Item Value Reference Range Interpretation Comments Hep Bs Ag (test code Negative *NA*(12/04/22 = Hep Bs Ag) 9:58 AM) [facility] HospitalYuhgvjlJDBTPJEIQZ3910-05-86 15:58:00 Test Item Value Reference Range Interpretation Comments Hep Bs Ag (test code Negative *NA*(12/04/22 = Hep Bs Ag) 9:58 AM) [facility] HospitalSqqqsqvZZMVDGGNZA6319-52-15 15:58:00 Test Item Value Reference Range Interpretation Comments Hep Bs Ag (test code Negative *NA*(12/04/22 = Hep Bs Ag) 9:58 AM) [facility] HospitalAiewhdoQLXDCMPMSO2909-46-51 15:58:00 Test Item Value Reference Range Interpretation Comments Hep Bs Ag (test code Negative *NA*(12/04/22 = Hep Bs Ag) 9:58 AM) [facility] PSLMJTP4008-94-12 15:42:00 Test Item Value Reference Range Interpretation Comments ABO/Rh (test code = ABO/Rh) O POS [facility] YEUDWPL5716-33-71 15:42:00 Test Item Value Reference Range Interpretation Comments Antibody Scrn (test Negative (12/03/22 9:42 code = Antibody Scrn) AM) [facility] TIWHLVK2868-08-09 15:42:00 Test Item Value Reference Range Interpretation Comments ABO/Rh (test code = ABO/Rh) O POS [facility] HTLUFOZ5118-46-15 15:42:00 Test Item Value Reference Range Interpretation Comments Antibody Scrn (test Negative (12/03/22 9:42 code = Antibody Scrn) AM) [place] [id number] 15:21:12 Test Item Value Reference Range Interpretation [...] vein outflow.Valentin Evans MD On 12/03/2022 09:19:45; [id number] [facility] CenterIdnjuduEAZUUY3995-58-20 15:21:12 Test Item Value Reference Range Interpretation [...] vein outflow.Valentin Evans MD On 12/03/2022 09:19:45; [id number] [facility] HospitalPpxcyvyYDLNUX5817-05-10 14:03:57 Test Item Value Reference Range Interpretation [...] process. Nigel Tsai MD On 12/03/2022 08:03:26; [id number] [facility] HospitalHvdhvqyWVLKBD2548-27-19 14:03:57 Test Item Value Reference Range Interpretation [...] process. Nigel Tsai MD On 12/03/2022 08:03:26; [id number] [facility]2023-03-07 13:03:00 Test Item Value Reference Range Interpretation Comments Total Protein (test code = Total 6.7 6.4-8.4 Protein) [place] 664503-03-07 13:03:00 Test Item Value Reference Range Interpretation Comments Albumin Lvl (test code = Albumin Lvl) 3.0 3.5-5.0 [facility]2023-03-07 13:03:00 Test Item Value Reference Range Interpretation Comments ALT (test code = ALT) 10 See_Comment [Auto mated message] The system which ge nerated this result transmit cruz reference range : <=65. The reference range was not used to interpr et this result as gee l/abnormal. [place] 664503-03-07 13:03:00 Test Item Value Reference Range Interpretation Comments AST (test code = AST) 5 See_Comment [Auto mated message] The system which ge nerated this result transmit cruz reference range : <=37. The reference range was not used to interpr et this result as gee l/abnormal. [facility]2023-03-07 13:03:00 Test Item Value Reference Range Interpretation Comments Alk Phos (test code = Alk Phos) 77 39-136 [facility] [facility] 13:03:00 Test Item Value Reference Range Interpretation Comments Bili Total (test code = Bili Total) 0.4 0.2-1.3 [place] 664503-03-07 13:03:00 Test Item Value Reference Range Interpretation Comments B/C Ratio (test code = B/C Ratio) 4 1 6-25 [place] 664503-03-07 13:03:00 Test Item Value Reference Range Interpretation Comments Globulin (test code = Globulin) 3.7 2.7-4.2 [place] 664503-03-07 13:03:00 Test Item Value Reference Range Interpretation Comments A/G Ratio (test code = A/G Ratio) 0.8 1 0.7-1.6 [place] 313493-03-07 13:03:00 Test Item Value Reference Range Interpretation Comments PT (test code = PT) 15.0 s 12.0-14.7 [facility] CenterLtuhczoANASALLASJ1283-20-75 13:03:00 Test Item Value Reference Range Interpretation Comments INR (test code = INR) 1.18 1 0.85-1.17 [place] [address]-03-07 13:03:00 Test Item Value Reference Range Interpretation Comments PTT (test code = PTT) 31.8 s 22.9-35.8 [place] 313493-03-07 13:03:00 Test Item Value Reference Range Interpretation Comments Eosinophils (test code = 2.4 See_Comment [A utomated message] The Eosinophils) system which ge nerated this result tra nsmitted reference range : <=4.0. The reference r jillian was not used to int erpret this result as normal/abnormal . [place] 313493-03-07 13:03:00 Test Item Value Reference Range Interpretation Comments Eosinophils # (test code 0.2 See_Comment [A utomated message] The = Eosinophils #) system whic h generated this result tra nsmitted reference range : <=0.5. The reference r jillian was not used to int erpret this result as normal/abnormal . [facility]XipwiufCOJHLYZZSC4381-63-85 13:03:00 Test Item Value Reference Range Interpretation Comments Basophils # (test code 0.1 See_Comment [Aut omated message] The = Basophils #) system which generated this result tra nsmitted reference range : <=0.2. The reference r jillian was not used to int erpret this result as normal/abnormal . [facility] [id number] 13:03:00 Test Item Value Reference Range Interpretation Comments Total Protein (test code = Total 6.7 6.4-8.4 Protein) [facility] [id number] 13:03:00 Test Item Value Reference Range Interpretation Comments Albumin Lvl (test code = Albumin Lvl) 3.0 3.5-5.0 [facility] [id number] 13:03:00 Test Item Value Reference Range Interpretation Comments ALT (test code = ALT) 10 See_Comment [Auto mated message] The system which ge nerated this result transmit cruz reference range : <=65. The reference range was not used to interpr et this result as gee l/abnormal. [facility] [id number] 13:03:00 Test Item Value Reference Range Interpretation Comments AST (test code = AST) 5 See_Comment [Auto mated message] The system which ge nerated this result transmit cruz reference range : <=37. The reference range was not used to interpr et this result as gee l/abnormal. [place] 664503-03-07 13:03:00 Test Item Value Reference Range Interpretation Comments Alk Phos (test code = Alk Phos) 77 39-136 [facility] HospitalPlaytoxBRITTANY VILLE [id number] 13:03:00 Test Item Value Reference Range Interpretation Comments Bili Total (test code = Bili Total) 0.4 0.2-1.3 [place] 664503-03-07 13:03:00 Test Item Value Reference Range Interpretation Comments B/C Ratio (test code = B/C Ratio) 4 1 6-25 [place] [address]-03-07 13:03:00 Test Item Value Reference Range Interpretation Comments Globulin (test code = Globulin) 3.7 2.7-4.2 [facility] [id number] 13:03:00 Test Item Value Reference Range Interpretation Comments A/G Ratio (test code = A/G Ratio) 0.8 1 0.7-1.6 [place] [address]-03-07 13:03:00 Test Item Value Reference Range Interpretation Comments PT (test code = PT) 15.0 s 12.0-14.7 [place] [address]-03-07 13:03:00 Test Item Value Reference Range Interpretation Comments INR (test code = INR) 1.18 1 0.85-1.17 [place] [address]-03-07 13:03:00 Test Item Value Reference Range Interpretation Comments PTT (test code = PTT) 31.8 s 22.9-35.8 [place] [address]-03-07 13:03:00 Test Item Value Reference Range Interpretation Comments Eosinophils (test code = 2.4 See_Comment [A utomated message] The Eosinophils) system which ge nerated this result tra nsmitted reference range : <=4.0. The reference r jillian was not used to int erpret this result as normal/abnormal . [facility] CenterGzfesitCFRZHHHUEF0012-06-48 13:03:00 Test Item Value Reference Range Interpretation Comments Eosinophils # (test code 0.2 See_Comment [A utomated message] The = Eosinophils #) system whic h generated this result tra nsmitted reference range : <=0.5. The reference r jillian was not used to int erpret this result as normal/abnormal . [facility] CenterUkeyankJVYUFIXXXA0177-28-86 13:03:00 Test Item Value Reference Range Interpretation Comments Basophils # (test code 0.1 See_Comment [Aut omated message] The = Basophils #) system which generated this result tra nsmitted reference range : <=0.2. The reference r jillian was not used to int erpret this result as normal/abnormal . [facility] METABOLIC PANEL (34209)2022-12-02 19:34:37 Test Item Value Reference Range Interpretation Comments NA (test code = 136 mmol/L 135-145 0987493139) K (test code = 4.6 mmol/L 3.5-5.0 8506333629) CL (test code = 101 mmol/L 98-108 4582080590) CO2 TOTAL (test code = 25 mmol/L 23-31 8468375223) AGAP (test code = 10 2-16 7291434372) BUN (test code = 33 mg/dL 7-23 H 4203205318) GLUCOSE (test code = 83 mg/dL 70-110 3901712610) CREATININE (test code = 8.36 mg/dL 0.60-1.25 H 7647093773) TOTAL BILI (test code = 0.6 mg/dL 0.1-1.3 1276320273) CALCIUM (test code = 8.2 mg/dL 8.6-10.6 L 4342567210) T PROTEIN (test code = 7.7 g/dL 6.3-8.2 5158553876) ALBUMIN (test code = 4.3 g/dL 3.5-5.0 8284614157) ALK PHOS (test code = 80 U/L 34-122 5724098238) ALTv (test code = 12 U/L 5-50 1742-6) AST(SGOT) (test code = 16 U/L 13-40 4457015959) eGFR (test code = 6.6 mL/min/1.73m2 3324055676) FILI (test code = FILI) Association of [...] tests). Lab Interpretation Abnormal (test code = 76622-2) [facility] [id number] 19:16:11 Test Item Value Reference Range Interpretation Comments APTT Patient (test 28 See_Comment [Automat ed code = 3173-2) message] The system which generated this result transmitted reference range : 23 - 38 Seconds . The reference range was not used to interpr et this result as normal/abnormal . FILI (test code = FILI) The [facility] patient population mean normal value for aPTT is 30 seconds. Lab Interpretation Normal (test code = 91500-9) [facility]iePROTHROMBIN TIME / [id number] 19:14:13 Test Item Value Reference Range Interpretation [...] tions. Lab Interpretation (test Normal code = 97108-6) General acute hospital WITH [id number] 19:07:14 Test Item Value Reference Range Interpretation [...] RDW-SD (test code = 50.5 fL 38.5-51.6 34744-6) RDW-CV (test code = 13.7 % 12.1-15.4 788-0) PLT (test code = 218 See_Comment [Automated 777-3) message] The sy stem which generated this result transmitted reference range : 150 - 328 10*3/ ?L. The reference r jillian was not used to interpret this result as normal/abnormal . MPV (test code = 10.1 fL 9.8-13.0 97376-4) NRBC/100 WBC (test 0.0 See_Comment [Automat ed code = 6357523140) message] The system which generated this result transmitted reference range : 0.0 - 10.0 /100 WBCs. The refer ence range was not u sed to interpret th is result as normal/abnormal . NRBC x10^3 (test code See_Comment [Auto mated = 4239252531) message] The s ystem which generated this result transmitted reference range : 10*3/?L. The reference range was not used to interpret this result as normal/abnormal . GRAN MAT (NEUT) % 69.1 % (test code = 770-8) IMM GRAN % (test code 0.40 % = 5543029553) LYMPH % (test code = 20.0 % 736-9) MONO % (test code = 7.8 % 5905-5) EOS % (test code = 1.9 % 713-8) BASO % (test code = 0.8 % 706-2) GRAN MAT x10^3(ANC) 5.50 10*3/uL 1.99-6.95 (test code = 3073507021) IMM GRAN x10^3 (test 0.03 10*3/uL 0.00-0.06 code = 3722697329) LYMPH x10^3 (test code 1.59 10*3/uL 1.09-3.23 = 731-0) MONO x10^3 (test code 0.62 10*3/uL 0.36-1.02 = 742-7) EOS x10^3 (test code = 0.15 10*3/uL 0.06-0.53 711-2) BASO x10^3 (test code 0.06 10*3/uL 0.01-0.09 = 704-7) Lab Interpretation Abnormal (test code = 81527-8) [facility]ieCHE[facility] [id number] 19:17:00 Test Item Value Reference Range Interpretation Comments Glucose Lvl (test code = Glucose Lvl) 87 70-99 [facility] [id number] 19:17:00 Test Item Value Reference Range Interpretation Comments BUN (test code = BUN) 46 7-22 [facility]2019-11-21 19:17:00 Test Item Value Reference Range Interpretation Comments Creatinine Lvl (test code = Creatinine 11.10 0.50-1.40 Lvl) [facility]2019-11-21 19:17:00 Test Item Value Reference Range Interpretation Comments Sodium Lvl (test code = Sodium Lvl) 137 135-145 [facility]2019-11-21 19:17:00 Test Item Value Reference Range Interpretation Comments Potassium Lvl (test code = Potassium 3.8 3.5-5.1 Lvl) [facility]2019-11-21 19:17:00 Test Item Value Reference Range Interpretation Comments Chloride Lvl (test code = Chloride Lvl) 100 95-109 [facility]2019-11-21 19:17:00 Test Item Value Reference Range Interpretation Comments CO2 (test code = CO2) 27 24-32 [facility]2019-11-21 19:17:00 Test Item Value Reference Range Interpretation Comments Calcium Lvl (test code = Calcium Lvl) 8.9 8.5-10.5 [facility]2019-11-21 19:17:00 Test Item Value Reference Range Interpretation Comments Total Protein (test code = Total 8.4 6.4-8.4 Protein) [facility]2019-11-21 19:17:00 Test Item Value Reference Range Interpretation Comments Albumin Lvl (test code = Albumin Lvl) 3.7 3.5-5.0 [facility]2019-11-21 19:17:00 Test Item Value Reference Range Interpretation Comments ALT (test code = ALT) 15 See_Comment [Auto mated message] The system which ge nerated this result transmit cruz reference range : <=65. The reference range was not used to interpr et this result as gee l/abnormal. [facility]2019-11-21 19:17:00 Test Item Value Reference Range Interpretation Comments AST (test code = AST) 11 See_Comment [Auto mated message] The system which ge nerated this result transmit cruz reference range : <=37. The reference range was not used to interpr et this result as gee l/abnormal. [facility]2019-11-21 19:17:00 Test Item Value Reference Range Interpretation Comments Alk Phos (test code = Alk Phos) 80 39-136 [facility]2019-11-21 19:17:00 Test Item Value Reference Range Interpretation Comments Bili Total (test code = Bili Total) 0.4 0.2-1.3 [facility]2019-11-21 19:17:00 Test Item Value Reference Range Interpretation Comments eGFR (test code = eGFR) 5 [facility]2019-11-21 19:17:00 Test Item Value Reference Range Interpretation Comments AGAP (test code = AGAP) 13.8 10.0-20.0 [facility]2019-11-21 19:17:00 Test Item Value Reference Range Interpretation Comments B/C Ratio (test code = B/C Ratio) 4 1 6-25 [facility]2019-11-21 19:17:00 Test Item Value Reference Range Interpretation Comments Globulin (test code = Globulin) 4.7 2.7-4.2 [facility]2019-11-21 19:17:00 Test Item Value Reference Range Interpretation Comments A/G Ratio (test code = A/G Ratio) 0.8 1 0.7-1.6 [facility] CenterUyvgwwmSDCTSXAYTJ9559-38-60 19:17:00 Test Item Value Reference Range Interpretation Comments WBC (test code = WBC) 7.9 3.7-10.4 [facility] CenterNbzdskyEGBSLQDADS2061-67-51 19:17:00 Test Item Value Reference Range Interpretation Comments RBC (test code = RBC) 3.90 4.70-6.10 [facility] CenterYlpotrpMYTJYBCXDY3946-97-82 19:17:00 Test Item Value Reference Range Interpretation Comments Hgb (test code = Hgb) 13.3 14.0-18.0 [place] 922769-11-21 19:17:00 Test Item Value Reference Range Interpretation Comments Hct (test code = Hct) 39.0 42.0-54.0 [facility] CenterEayeelnVLZAYZKIQQ5576-62-65 19:17:00 Test Item Value Reference Range Interpretation Comments MCV (test code = MCV) 99.9 80.0-94.0 [place] 922769-11-21 19:17:00 Test Item Value Reference Range Interpretation Comments MCH (test code = MCH) 34.2 pg 27.0-31.0 [facility] CenterHbbiatpJJCKKDIPSF3228-33-97 19:17:00 Test Item Value Reference Range Interpretation Comments MCHC (test code = MCHC) 34.2 32.0-36.0 [facility] CenterEtsvapdOFWEATQGFA6076-55-45 19:17:00 Test Item Value Reference Range Interpretation Comments RDW (test code = RDW) 14.1 11.5-14.5 [facility] CenterLapcvgjXAMLVYNOMK7009-72-01 19:17:00 Test Item Value Reference Range Interpretation Comments Platelet (test code = Platelet) 251 133-450 [facility] CenterBsmadrtVTMEAKGNAJ0100-63-63 19:17:00 Test Item Value Reference Range Interpretation Comments MPV (test code = MPV) 8.8 7.4-10.4 [facility] CenterTimfqliNXANSDMZSY3974-37-63 19:17:00 Test Item Value Reference Range Interpretation Comments Segs (test code = Segs) 69.6 45.0-75.0 [facility] CenterFjsuzkiTHPKFAELDW3730-41-79 19:17:00 Test Item Value Reference Range Interpretation Comments Lymphocytes (test code = Lymphocytes) 21.8 20.0-40.0 [facility] CenterMxrevznVNFNLIHGCI5287-84-28 19:17:00 Test Item Value Reference Range Interpretation Comments Monocytes (test code = Monocytes) 6.8 2.0-12.0 [facility] CenterWusalexZDIIXPXUKO6496-30-51 19:17:00 Test Item Value Reference Range Interpretation Comments Eosinophils (test code = 1.2 See_Comment [A utomated message] The Eosinophils) system which ge nerated this result tra nsmitted reference range : <=4.0. The reference r jillian was not used to int erpret this result as normal/abnormal . [facility] CenterHqetqgkCPWBRWCVTQ0145-23-46 19:17:00 Test Item Value Reference Range Interpretation Comments Basophils (test code = 0.6 See_Comment [Aut omated message] The Basophils) system which ge nerated this result tra nsmitted reference range : <=1.0. The reference r jillian was not used to int erpret this result as normal/abnormal . [facility] CenterWnauuxlJCWDOAUSTG2024-02-97 19:17:00 Test Item Value Reference Range Interpretation Comments Neutrophils # (test code = Neutrophils 5.5 1.5-8.1 #) [facility] CenterDlyprfyBPNLLYXMJN3500-35-18 19:17:00 Test Item Value Reference Range Interpretation Comments Lymphocytes # (test code = Lymphocytes 1.7 1.0-5.5 #) [facility] CenterJitgfofIMMDHLYRJW6807-67-38 19:17:00 Test Item Value Reference Range Interpretation Comments Monocytes # (test code 0.5 See_Comment [Aut omated message] The = Monocytes #) system which generated this result tra nsmitted reference range : <=0.8. The reference r jillian was not used to int erpret this result as normal/abnormal . [facility] CenterAwtylxwMPQQGVBPTI7955-99-21 19:17:00 Test Item Value Reference Range Interpretation Comments Eosinophils # (test code 0.1 See_Comment [A utomated message] The = Eosinophils #) system whic h generated this result tra nsmitted reference range : <=0.5. The reference r jillian was not used to int erpret this result as normal/abnormal . [place] 140699-11-21 19:17:00 Test Item Value Reference Range Interpretation Comments Acetaminoph Lvl (test code (08/19/19 1:17 PM) 10-20 = Acetaminoph Lvl) [place] 140699-11-21 19:17:00 Test Item Value Reference Range Interpretation Comments Ethanol Lvl (test code = Ethanol Lvl) no gt [place] 30596019-11-21 19:17:00 Test Item Value Reference Range Interpretation Comments Etoh (%) (test code = Etoh (%)) no gt [place] 30596019-11-21 19:17:00 Test Item Value Reference Range Interpretation Comments Salicylate Lvl (test no gt See_Comment [Autom ated message] The code = Salicylate Lvl) syste m which generated this result tra nsmitted reference range : <=30.0. The reference r jillian was not used to int erpret this result as normal/abnormal . [facility] [id number] 19:17:00 Test Item Value Reference Range Interpretation Comments Glucose Lvl (test code = Glucose Lvl) 87 70-99 [facility] [id number] 19:17:00 Test Item Value Reference Range Interpretation Comments BUN (test code = BUN) 46 7-22 [facility]2019-11-21 19:17:00 Test Item Value Reference Range Interpretation Comments Creatinine Lvl (test code = Creatinine 11.10 0.50-1.40 Lvl) [facility]2019-11-21 19:17:00 Test Item Value Reference Range Interpretation Comments Sodium Lvl (test code = Sodium Lvl) 137 135-145 [facility]2019-11-21 19:17:00 Test Item Value Reference Range Interpretation Comments Potassium Lvl (test code = Potassium 3.8 3.5-5.1 Lvl) [facility]2019-11-21 19:17:00 Test Item Value Reference Range Interpretation Comments Chloride Lvl (test code = Chloride Lvl) 100 95-109 [facility]2019-11-21 19:17:00 Test Item Value Reference Range Interpretation Comments CO2 (test code = CO2) 27 24-32 [facility]2019-11-21 19:17:00 Test Item Value Reference Range Interpretation Comments Calcium Lvl (test code = Calcium Lvl) 8.9 8.5-10.5 [facility]2019-11-21 19:17:00 Test Item Value Reference Range Interpretation Comments Total Protein (test code = Total 8.4 6.4-8.4 Protein) [facility]2019-11-21 19:17:00 Test Item Value Reference Range Interpretation Comments Albumin Lvl (test code = Albumin Lvl) 3.7 3.5-5.0 [facility]2019-11-21 19:17:00 Test Item Value Reference Range Interpretation Comments ALT (test code = ALT) 15 See_Comment [Auto mated message] The system which ge nerated this result transmit cruz reference range : <=65. The reference range was not used to interpr et this result as gee l/abnormal. [facility]2019-11-21 19:17:00 Test Item Value Reference Range Interpretation Comments AST (test code = AST) 11 See_Comment [Auto mated message] The system which ge nerated this result transmit cruz reference range : <=37. The reference range was not used to interpr et this result as gee l/abnormal. [facility]2019-11-21 19:17:00 Test Item Value Reference Range Interpretation Comments Alk Phos (test code = Alk Phos) 80 39-136 [facility]2019-11-21 19:17:00 Test Item Value Reference Range Interpretation Comments Bili Total (test code = Bili Total) 0.4 0.2-1.3 [facility]2019-11-21 19:17:00 Test Item Value Reference Range Interpretation Comments eGFR (test code = eGFR) 5 [facility]2019-11-21 19:17:00 Test Item Value Reference Range Interpretation Comments AGAP (test code = AGAP) 13.8 10.0-20.0 [facility]2019-11-21 19:17:00 Test Item Value Reference Range Interpretation Comments B/C Ratio (test code = B/C Ratio) 4 1 6-25 [facility]2019-11-21 19:17:00 Test Item Value Reference Range Interpretation Comments Globulin (test code = Globulin) 4.7 2.7-4.2 [facility]2019-11-21 19:17:00 Test Item Value Reference Range Interpretation Comments A/G Ratio (test code = A/G Ratio) 0.8 1 0.7-1.6 [facility] CenterKyyosxjTQFJLBBNXU5183-25-23 19:17:00 Test Item Value Reference Range Interpretation Comments WBC (test code = WBC) 7.9 3.7-10.4 [facility] CenterHddbebtWJJRUKLDFM5898-45-29 19:17:00 Test Item Value Reference Range Interpretation Comments RBC (test code = RBC) 3.90 4.70-6.10 [facility] CenterWrhvbjkPMYSCEGYFR4753-74-12 19:17:00 Test Item Value Reference Range Interpretation Comments Hgb (test code = Hgb) 13.3 14.0-18.0 [facility] CenterYmjqclzBOEFHSLWUT0628-20-80 19:17:00 Test Item Value Reference Range Interpretation Comments Hct (test code = Hct) 39.0 42.0-54.0 [facility] CenterXjbrextPDNUUFCMXN7406-73-33 19:17:00 Test Item Value Reference Range Interpretation Comments MCV (test code = MCV) 99.9 80.0-94.0 [facility] CenterWxodekxGCESNLWPYI7405-93-80 19:17:00 Test Item Value Reference Range Interpretation Comments MCH (test code = MCH) 34.2 pg 27.0-31.0 [facility] CenterQgowkowUYFAHZDVVD0914-35-15 19:17:00 Test Item Value Reference Range Interpretation Comments MCHC (test code = MCHC) 34.2 32.0-36.0 [facility] CenterQeshuwbLWCFCAQNVQ3822-16-23 19:17:00 Test Item Value Reference Range Interpretation Comments RDW (test code = RDW) 14.1 11.5-14.5 [facility] CenterPtgqtcyETUOGTOHXU1424-33-26 19:17:00 Test Item Value Reference Range Interpretation Comments Platelet (test code = Platelet) 251 133-450 [facility] CenterEfxbvfjURLHCYWOVV2972-57-65 19:17:00 Test Item Value Reference Range Interpretation Comments MPV (test code = MPV) 8.8 7.4-10.4 [facility] CenterTuokysbIRKXFCEIAQ1837-47-68 19:17:00 Test Item Value Reference Range Interpretation Comments Segs (test code = Segs) 69.6 45.0-75.0 [facility] CenterHxtpzkdEPLBAXVIAU4416-15-74 19:17:00 Test Item Value Reference Range Interpretation Comments Lymphocytes (test code = Lymphocytes) 21.8 20.0-40.0 [facility] CenterVwehtctROWMZNVYTU1001-28-11 19:17:00 Test Item Value Reference Range Interpretation Comments Monocytes (test code = Monocytes) 6.8 2.0-12.0 [facility] CenterYmkxqmvIMIIAOBOBM1899-13-34 19:17:00 Test Item Value Reference Range Interpretation Comments Eosinophils (test code = 1.2 See_Comment [A utomated message] The Eosinophils) system which ge nerated this result tra nsmitted reference range : <=4.0. The reference r jlilian was not used to int erpret this result as normal/abnormal . [facility] CenterOaeckbeJSMDSWAJKV4949-87-96 19:17:00 Test Item Value Reference Range Interpretation Comments Basophils (test code = 0.6 See_Comment [Aut omated message] The Basophils) system which ge nerated this result tra nsmitted reference range : <=1.0. The reference r jillian was not used to int erpret this result as normal/abnormal . [facility] CenterEipbfdsVJKNRNSSWO8277-62-13 19:17:00 Test Item Value Reference Range Interpretation Comments Neutrophils # (test code = Neutrophils 5.5 1.5-8.1 #) [facility] CenterDfgclmkJFABWUAONJ6261-40-00 19:17:00 Test Item Value Reference Range Interpretation Comments Lymphocytes # (test code = Lymphocytes 1.7 1.0-5.5 #) [facility]bwKRJXWMEMFJ3396-90-22 19:17:00 Test Item Value Reference Range Interpretation Comments Monocytes # (test code 0.5 See_Comment [Aut omated message] The = Monocytes #) system which generated this result tra nsmitted reference range : <=0.8. The reference r jillian was not used to int erpret this result as normal/abnormal . [facility] HospitalHpfnishIAKSWMIZZI0750-08-71 19:17:00 Test Item Value Reference Range Interpretation Comments Eosinophils # (test code 0.1 See_Comment [A utomated message] The = Eosinophils #) system whic h generated this result tra nsmitted reference range : <=0.5. The reference r jillian was not used to int erpret this result as normal/abnormal . [facility] HospitalBiztqjnSLECHGJWPU0831-92-60 19:17:00 Test Item Value Reference Range Interpretation Comments Acetaminoph Lvl (test code (08/19/19 1:17 PM) 10-20 = Acetaminoph Lvl) [facility] CampusCinplpwCBRHIAGAYT9150-37-23 19:17:00 Test Item Value Reference Range Interpretation Comments Ethanol Lvl (test code = Ethanol Lvl) no gt [facility] HospitalBomqopiKIYCMPNGKQ6908-40-03 19:17:00 Test Item Value Reference Range Interpretation Comments Etoh (%) (test code = Etoh (%)) no gt [facility] HospitalKgamkkfJZODXCBLDQ5443-30-44 19:17:00 Test Item Value Reference Range Interpretation Comments Salicylate Lvl (test no gt See_Comment [Autom ated message] The code = Salicylate Lvl) syste m which generated this result tra nsmitted reference range : <=30.0. The reference r jillian was not used to int erpret this result as normal/abnormal . [facility] HospitalBRAIN NATRIURETIC [id number] 08:55:00 Test Item Value Reference Range Interpretation Comments proBNP (test code = PBNP) 750 pg/mL 0-125 H COMPREHENSIVE METABOLIC [id number] 08:55:00 Test Item Value Reference Range Interpretation [...] (test code = 31A) 15 IU/L <=78 [id number] 08:55:00 Test Item Value Reference Range Interpretation Comments MAGNESIUM (test code = 48A) 2.6 mg/dL 1.8-2.4 H PHOSPHORUS (P04)2019-08-11 08:55:00 Test Item Value Reference Range Interpretation Comments PHOSPHORUS (test code = 43D) 7.8 mg/dL 2.7-4.6 H TROPONIN [id number] 08:50:00 Test Item Value Reference Range Interpretation Comments TROPONIN I (test code = A84) <0.015 ng/mL 0.000-0.045 PRO TIME AND [id number] 08:43:00 Test Item Value Reference Range Interpretation [...] Order Code is ANTI-XA CT HEAD W/O [id number] 08:36:37CT brain without contrastLocation code: [id number] HISTORY: Dizziness COMPARISON: 03/03/18TECHNIQUE:Routine unenhanced axial imaging [...] = RBCMOR) NORMAL XR CHEST 1 VIEW [id number] 08:28:57Portable AP chest, 1 viewLocation Code: [id number] HISTORY: DizzinessCOMPARISON: 03/03/18COMMENT: The lungs are clear and well inflated. The costophrenic angles are sharp. Thecardiomediastinal silhouette is unremarkable. The bones are intact.IMPRESSION: Stable chest with no acute inqfcgeoqznCYMFEVOPWMOU2727-86-32 13:08:00 Test Item Value Reference Range Interpretation Comments AGAP (test code = AGAP) 19.3 10.0-20.0 [facility] HospitalMvmzxuxQASWMPSFKCIP4429-09-69 13:08:00 Test Item Value Reference Range Interpretation Comments eGFR (test code = eGFR) 7 [facility] HospitalYvrryfsBDFVAYYYIXHQ8029-23-45 13:08:00 Test Item Value Reference Range Interpretation Comments Calcium Lvl (test code = Calcium Lvl) 8.4 8.5-10.5 [facility] HospitalNmwizxgMGRNHNSPQFAZ4729-60-92 13:08:00 Test Item Value Reference Range Interpretation Comments CO2 (test code = CO2) 24 24-32 [facility] HospitalJrwerosPWZPQZSJKDTN5894-64-18 13:08:00 Test Item Value Reference Range Interpretation Comments Chloride Lvl (test code = Chloride Lvl) 97 95-109 [facility] HospitalKtkknlzISFEKDEYVMMW8227-07-09 13:08:00 Test Item Value Reference Range Interpretation Comments Potassium Lvl (test code = Potassium 5.3 3.5-5.1 Lvl) [facility] HospitalPjqwandPXMAUJCZQAJS4947-33-26 13:08:00 Test Item Value Reference Range Interpretation Comments BUN (test code = BUN) 39 7-22 [facility] HospitalZlfniojIXFQRSMUHUJU3323-08-63 13:08:00 Test Item Value Reference Range Interpretation Comments Creatinine Lvl (test code = Creatinine 7.58 0.50-1.40 Lvl) [facility] HospitalDcgudywRGEAHXQCSRXH7652-14-46 13:08:00 Test Item Value Reference Range Interpretation Comments Sodium Lvl (test code = Sodium Lvl) 135 135-145 [facility] HospitalJivblrbCTGMKCMUZPXV7851-22-20 13:08:00 Test Item Value Reference Range Interpretation Comments Glucose Lvl (test code = Glucose Lvl) 87 70-99 [facility] CenterIaxvejtFSUVGQQVNM7834-90-93 13:08:00 Test Item Value Reference Range Interpretation Comments RDW (test code = RDW) 16.5 11.5-14.5 [facility] CenterXrxjcnsDUMHISFEDH6420-46-74 13:08:00 Test Item Value Reference Range Interpretation Comments MCHC (test code = MCHC) 33.7 32.0-36.0 [facility] CenterOpvklqiFSVVGHCKAA7426-92-71 13:08:00 Test Item Value Reference Range Interpretation Comments MCH (test code = MCH) 33.7 pg 27.0-31.0 [facility] CenterYvnfprxPKTLRPIVPF9995-91-76 13:08:00 Test Item Value Reference Range Interpretation Comments MCV (test code = MCV) 100.0 80.0-94.0 [facility] CenterPhkibogEZGDRRPSAD4853-54-55 13:08:00 Test Item Value Reference Range Interpretation Comments Hct (test code = Hct) 39.7 42.0-54.0 [facility] CenterMyvfonrODWXIHDYOZ7337-15-60 13:08:00 Test Item Value Reference Range Interpretation Comments Hgb (test code = Hgb) 13.4 14.0-18.0 [facility] CenterVbbhzheEZQHEYGCMP5086-03-43 13:08:00 Test Item Value Reference Range Interpretation Comments RBC (test code = RBC) 3.97 4.70-6.10 [facility] CenterKifurzhONMUXASKYU0772-19-49 13:08:00 Test Item Value Reference Range Interpretation Comments WBC (test code = WBC) 8.8 3.7-10.4 [facility] CenterZrlzzqxQALOAFAIOS1352-09-80 13:08:00 Test Item Value Reference Range Interpretation Comments MPV (test code = MPV) 7.7 7.4-10.4 [facility] CenterStidbivZXUOECKWIO2633-98-76 13:08:00 Test Item Value Reference Range Interpretation Comments Platelet (test code = Platelet) 324 133-450 [facility] HospitalJnnzpqgLODZDPFZIQSI8038-11-17 13:08:00 Test Item Value Reference Range Interpretation Comments AGAP (test code = AGAP) 19.3 10.0-20.0 [facility] HospitalYlnrlngLOKMDDRMGLHU1213-20-26 13:08:00 Test Item Value Reference Range Interpretation Comments eGFR (test code = eGFR) 7 [facility] HospitalUjsokmhADXPBPUAYNRB2667-95-63 13:08:00 Test Item Value Reference Range Interpretation Comments Calcium Lvl (test code = Calcium Lvl) 8.4 8.5-10.5 [facility] HospitalPjrohgyQGEJVQWVDVCO6567-55-30 13:08:00 Test Item Value Reference Range Interpretation Comments CO2 (test code = CO2) 24 24-32 [facility] HospitalBoazwghCFZJVTCGHCKA7361-22-68 13:08:00 Test Item Value Reference Range Interpretation Comments Chloride Lvl (test code = Chloride Lvl) 97 95-109 [facility] HospitalKentgdiGZNNKAUDXMBC3577-93-07 13:08:00 Test Item Value Reference Range Interpretation Comments Potassium Lvl (test code = Potassium 5.3 3.5-5.1 Lvl) [facility] HospitalXxyikvzGFBAVTXMREEE8242-74-70 13:08:00 Test Item Value Reference Range Interpretation Comments BUN (test code = BUN) 39 7-22 [facility] HospitalFhpheejAHXMSPCMZFQU2425-76-21 13:08:00 Test Item Value Reference Range Interpretation Comments Creatinine Lvl (test code = Creatinine 7.58 0.50-1.40 Lvl) [facility] HospitalTcfkahkSTLPIOAXXHLU5535-16-43 13:08:00 Test Item Value Reference Range Interpretation Comments Sodium Lvl (test code = Sodium Lvl) 135 135-145 [facility] HospitalExbjqalSDQQAAQFKVWY1132-26-06 13:08:00 Test Item Value Reference Range Interpretation Comments Glucose Lvl (test code = Glucose Lvl) 87 70-99 [facility] CenterEffpcstVXLTORJIDR3788-51-61 13:08:00 Test Item Value Reference Range Interpretation Comments RDW (test code = RDW) 16.5 11.5-14.5 [facility] CenterIiqvfdnCTFGJXLAYW8590-13-46 13:08:00 Test Item Value Reference Range Interpretation Comments MCHC (test code = MCHC) 33.7 32.0-36.0 [facility] CenterRcpemdhRBNRMCGUYJ0108-60-45 13:08:00 Test Item Value Reference Range Interpretation Comments MCH (test code = MCH) 33.7 pg 27.0-31.0 [facility] CenterHwwufjtGZFQDCOCAD6364-82-58 13:08:00 Test Item Value Reference Range Interpretation Comments MCV (test code = MCV) 100.0 80.0-94.0 [facility] CenterDqxoecwGEOSIEJFDA4221-13-64 13:08:00 Test Item Value Reference Range Interpretation Comments Hct (test code = Hct) 39.7 42.0-54.0 [facility] CenterSmzyzzyUCKBLYOKHP7747-54-20 13:08:00 Test Item Value Reference Range Interpretation Comments Hgb (test code = Hgb) 13.4 14.0-18.0 [facility] CenterJcwgbtlGCWRGOHEBG4225-98-01 13:08:00 Test Item Value Reference Range Interpretation Comments RBC (test code = RBC) 3.97 4.70-6.10 [facility] CenterLsunrtiIHRPWDMJNU5230-11-95 13:08:00 Test Item Value Reference Range Interpretation Comments WBC (test code = WBC) 8.8 3.7-10.4 [facility] CenterImnkibgJCXTIOUHTL3525-76-21 13:08:00 Test Item Value Reference Range Interpretation Comments MPV (test code = MPV) 7.7 7.4-10.4 [facility] HospitalCqfuyriGRSGVQRTIF3833-50-13 13:08:00 Test Item Value Reference Range Interpretation Comments Platelet (test code = Platelet) 324 133-450 [facility] HospitalCARDIAC ETJCDBL8894-06-32 18:27:00 Test Item Value Reference Range Interpretation Comments Troponin-I (test code no gt See_Comment [Auto mated message] The = Troponin-I) system which g enerated this result transmit cruz reference range : <=0.40. The reference r jillian was not used to interpr et this result as gee l/abnormal. [facility] HospitalDrzgwqwOQFXOWHOLCUT3942-56-95 18:27:00 Test Item Value Reference Range Interpretation Comments AGAP (test code = AGAP) 17.2 10.0-20.0 [facility] HospitalKnfapdfJLJERDRUUHWV4276-21-63 18:27:00 Test Item Value Reference Range Interpretation Comments eGFR (test code = eGFR) 6 [facility] HospitalYmzcjwcRPEWZHZCSIGS0509-84-09 18:27:00 Test Item Value Reference Range Interpretation Comments Creatinine Lvl (test code = Creatinine 8.49 0.50-1.40 Lvl) [facility] HospitalTrvlbweWMOALGRZMFPX7926-34-54 18:27:00 Test Item Value Reference Range Interpretation Comments Sodium Lvl (test code = Sodium Lvl) 137 135-145 [facility] HospitalBcokfafLVUKDXQJMPTI1446-55-13 18:27:00 Test Item Value Reference Range Interpretation Comments Potassium Lvl (test code = Potassium 4.2 3.5-5.1 Lvl) [facility] HospitalTwbefnkNAACRBCEUJTY7723-04-81 18:27:00 Test Item Value Reference Range Interpretation Comments BUN (test code = BUN) 32 7-22 [facility] HospitalWvkfhiqKGEYFGYLLZNL0245-35-98 18:27:00 Test Item Value Reference Range Interpretation Comments Glucose Lvl (test code = Glucose Lvl) 75 70-99 [facility] HospitalZuabidcSJCVXYCBHBYM0795-31-44 18:27:00 Test Item Value Reference Range Interpretation Comments Calcium Lvl (test code = Calcium Lvl) 7.9 8.5-10.5 [facility] HospitalNarfhyqMAKLTBHDSZIS6223-94-04 18:27:00 Test Item Value Reference Range Interpretation Comments CO2 (test code = CO2) 14 24-32 [facility]AgvycmvVXLVNGMNGADW6085-15-40 18:27:00 Test Item Value Reference Range Interpretation Comments Chloride Lvl (test code = Chloride Lvl) 110 95-109 [facility]UvrpdvbWXHLYZIBDL8415-32-79 18:27:00 Test Item Value Reference Range Interpretation Comments Hgb (test code = Hgb) 13.8 14.0-18.0 [facility] CenterIznfkjpYQAUFPHKEH1737-50-54 18:27:00 Test Item Value Reference Range Interpretation Comments Hct (test code = Hct) 40.9 42.0-54.0 [facility] CenterAlnfctsBJPGBCRRLU2063-59-03 18:27:00 Test Item Value Reference Range Interpretation Comments RBC (test code = RBC) 4.29 4.70-6.10 [facility] CenterWpupcipEYVOMZTZJM9414-74-54 18:27:00 Test Item Value Reference Range Interpretation Comments MCV (test code = MCV) 95.4 80.0-94.0 [facility] CenterFpmtexiOUZPNUMPPT0499-83-49 18:27:00 Test Item Value Reference Range Interpretation Comments MCH (test code = MCH) 32.1 pg 27.0-31.0 [facility] CenterDalwuhfXZCQBSVODT9708-53-18 18:27:00 Test Item Value Reference Range Interpretation Comments WBC (test code = WBC) 12.2 3.7-10.4 [facility] CenterTvlxzwrWXRLJHGJAW7166-89-14 18:27:00 Test Item Value Reference Range Interpretation Comments MPV (test code = MPV) 8.8 7.4-10.4 [facility] CenterRhsowckFIKQAEELUE7184-36-20 18:27:00 Test Item Value Reference Range Interpretation Comments RDW (test code = RDW) 14.5 11.5-14.5 [facility] CenterNptbfwkALLDNQWADA5710-03-45 18:27:00 Test Item Value Reference Range Interpretation Comments Platelet (test code = Platelet) 196 133-450 [facility] CenterGbeqrzrSHHCAZOGDA4159-86-01 18:27:00 Test Item Value Reference Range Interpretation Comments MCHC (test code = MCHC) 33.6 32.0-36.0 [facility] CenterAdbqhetKRVLYGCWUE6598-28-74 18:27:00 Test Item Value Reference Range Interpretation Comments Lymphocytes # (test code = Lymphocytes 1.6 1.0-5.5 #) [facility] CenterYoxgxotASAXRLJOGR2817-92-98 18:27:00 Test Item Value Reference Range Interpretation Comments Neutrophils # (test code = Neutrophils 9.6 1.5-8.1 #) [facility] CenterBzlyqqxOLMVSIOEQF9276-28-19 18:27:00 Test Item Value Reference Range Interpretation Comments Basophils # (test code 0.1 See_Comment [Aut omated message] The = Basophils #) system which generated this result tra nsmitted reference range : <=0.2. The reference r jillian was not used to int erpret this result as normal/abnormal . [facility] CenterJbcpnnbWLAUQVDRVM1031-48-63 18:27:00 Test Item Value Reference Range Interpretation Comments Eosinophils # (test code 0.1 See_Comment [A utomated message] The = Eosinophils #) system wh h generated this result tra nsmitted reference range : <=0.5. The reference r jillian was not used to int erpret this result as normal/abnormal . [facility] CenterLzkcctuWRGSUUIPFG3141-20-11 18:27:00 Test Item Value Reference Range Interpretation Comments Monocytes # (test code 0.9 See_Comment [Aut omated message] The = Monocytes #) system which generated this result tra nsmitted reference range : <=0.8. The reference r jillian was not used to int erpret this result as normal/abnormal . [facility] CenterEmcpfokAUYPYOSXCA4490-95-28 18:27:00 Test Item Value Reference Range Interpretation Comments Basophils (test code = 0.5 See_Comment [Aut omated message] The Basophils) system which ge nerated this result tra nsmitted reference range : <=1.0. The reference r jillian was not used to int erpret this result as normal/abnormal . [facility] CenterFgvnhwpKSBPIYZADG0282-47-97 18:27:00 Test Item Value Reference Range Interpretation Comments Eosinophils (test code = 1.1 See_Comment [A utomated message] The Eosinophils) system which ge nerated this result tra nsmitted reference range : <=4.0. The reference r jillian was not used to int erpret this result as normal/abnormal . [facility] CenterIthcvsbLQOOKBDFXL9640-38-10 18:27:00 Test Item Value Reference Range Interpretation Comments Monocytes (test code = Monocytes) 7.2 2.0-12.0 [facility] CenterXuakdbcTLOCPIXZOX4576-08-29 18:27:00 Test Item Value Reference Range Interpretation Comments Lymphocytes (test code = Lymphocytes) 12.8 20.0-40.0 [facility] HospitalZmyzxbrBKOILIJFUM9162-11-63 18:27:00 Test Item Value Reference Range Interpretation Comments Segs (test code = Segs) 78.4 45.0-75.0 [facility] HospitalCARDIAC QBEZEHD2309-20-51 18:27:00 Test Item Value Reference Range Interpretation Comments Troponin-I (test code no gt See_Comment [Auto mated message] The = Troponin-I) system which g enerated this result transmit cruz reference range : <=0.40. The reference r jillian was not used to interpr et this result as gee l/abnormal. [facility] HospitalWjyxtaiGLZLYTDQOFMZ2915-88-30 18:27:00 Test Item Value Reference Range Interpretation Comments AGAP (test code = AGAP) 17.2 10.0-20.0 [facility] HospitalYxhanzxLHMLQNLEQKTU6801-73-69 18:27:00 Test Item Value Reference Range Interpretation Comments eGFR (test code = eGFR) 6 [facility] HospitalOtglhihMSXDOZKSFUVZ7833-68-30 18:27:00 Test Item Value Reference Range Interpretation Comments Creatinine Lvl (test code = Creatinine 8.49 0.50-1.40 Lvl) [facility] HospitalRzgtqqaTPNJGBXIVXBZ5782-63-50 18:27:00 Test Item Value Reference Range Interpretation Comments Sodium Lvl (test code = Sodium Lvl) 137 135-145 [facility] HospitalCavwvceNELWSFEOBNPV2718-90-52 18:27:00 Test Item Value Reference Range Interpretation Comments Potassium Lvl (test code = Potassium 4.2 3.5-5.1 Lvl) [facility] HospitalTwrftanYDHLVFQGDXEH5594-89-00 18:27:00 Test Item Value Reference Range Interpretation Comments BUN (test code = BUN) 32 7-22 [facility] HospitalLiihyjyDCIQJMXEQEOA0288-59-78 18:27:00 Test Item Value Reference Range Interpretation Comments Glucose Lvl (test code = Glucose Lvl) 75 70-99 [facility] HospitalFpzehoiXQUEUDXQHEKO7729-59-77 18:27:00 Test Item Value Reference Range Interpretation Comments Calcium Lvl (test code = Calcium Lvl) 7.9 8.5-10.5 [facility] HospitalQojgmecDJCESDHVIWJZ2989-36-46 18:27:00 Test Item Value Reference Range Interpretation Comments CO2 (test code = CO2) 14 24-32 [facility] HospitalUcacdprVNAUOCXBHSSV8997-80-26 18:27:00 Test Item Value Reference Range Interpretation Comments Chloride Lvl (test code = Chloride Lvl) 110 95-109 [facility] CenterNcaxkwrBUBWVLGNER1993-21-93 18:27:00 Test Item Value Reference Range Interpretation Comments Hgb (test code = Hgb) 13.8 14.0-18.0 [facility] CenterWofsiypCFKQRTDDHN9570-01-44 18:27:00 Test Item Value Reference Range Interpretation Comments Hct (test code = Hct) 40.9 42.0-54.0 [facility] CenterKdzqsvjATJRZJOJZD9628-69-90 18:27:00 Test Item Value Reference Range Interpretation Comments RBC (test code = RBC) 4.29 4.70-6.10 [facility] CenterSidwsmcUGCOZGLJEL4352-16-52 18:27:00 Test Item Value Reference Range Interpretation Comments MCV (test code = MCV) 95.4 80.0-94.0 [facility] CenterPhagwdaYBGAVCKZZT6443-06-57 18:27:00 Test Item Value Reference Range Interpretation Comments MCH (test code = MCH) 32.1 pg 27.0-31.0 [facility] CenterShckctvQWFLGGXVSZ2384-82-06 18:27:00 Test Item Value Reference Range Interpretation Comments WBC (test code = WBC) 12.2 3.7-10.4 [facility] CenterOdslysdSOFJHYFDMA6622-19-20 18:27:00 Test Item Value Reference Range Interpretation Comments MPV (test code = MPV) 8.8 7.4-10.4 [facility] CenterAchcqclYASRHDBBYJ9496-46-41 18:27:00 Test Item Value Reference Range Interpretation Comments RDW (test code = RDW) 14.5 11.5-14.5 [facility] CenterZwqsbogWKDZGKLIJZ1869-85-11 18:27:00 Test Item Value Reference Range Interpretation Comments Platelet (test code = Platelet) 196 133-450 [facility] CenterTyggdatKPQSJQICUG8407-87-93 18:27:00 Test Item Value Reference Range Interpretation Comments MCHC (test code = MCHC) 33.6 32.0-36.0 [facility] CenterKfeyazhQYMRKOSJOE2449-41-33 18:27:00 Test Item Value Reference Range Interpretation Comments Lymphocytes # (test code = Lymphocytes 1.6 1.0-5.5 #) [facility] CenterWhthinyKYVGWUNLAE1662-77-37 18:27:00 Test Item Value Reference Range Interpretation Comments Neutrophils # (test code = Neutrophils 9.6 1.5-8.1 #) [facility] CenterKzcuegjBPYGYCERAQ3044-63-00 18:27:00 Test Item Value Reference Range Interpretation Comments Basophils # (test code 0.1 See_Comment [Aut omated message] The = Basophils #) system which generated this result tra nsmitted reference range : <=0.2. The reference r jillian was not used to int erpret this result as normal/abnormal . [facility] CenterIieepsqYXDHIXACAB8327-25-35 18:27:00 Test Item Value Reference Range Interpretation Comments Eosinophils # (test code 0.1 See_Comment [A utomated message] The = Eosinophils #) system whic h generated this result tra nsmitted reference range : <=0.5. The reference r jillian was not used to int erpret this result as normal/abnormal . [facility] CenterPasiumgVOSHVZZSLB0716-34-25 18:27:00 Test Item Value Reference Range Interpretation Comments Monocytes # (test code 0.9 See_Comment [Aut omated message] The = Monocytes #) system which generated this result tra nsmitted reference range : <=0.8. The reference r jillian was not used to int erpret this result as normal/abnormal . [facility] CenterNfwjytaSSXVXAQMNF7685-03-56 18:27:00 Test Item Value Reference Range Interpretation Comments Basophils (test code = 0.5 See_Comment [Aut omated message] The Basophils) system which ge nerated this result tra nsmitted reference range : <=1.0. The reference r jillian was not used to int erpret this result as normal/abnormal . [facility] CenterOrowsinTCEDPRUMZF4432-82-84 18:27:00 Test Item Value Reference Range Interpretation Comments Eosinophils (test code = 1.1 See_Comment [A utomated message] The Eosinophils) system which ge nerated this result tra nsmitted reference range : <=4.0. The reference r jillian was not used to int erpret this result as normal/abnormal . [facility] CenterWoxvepyFNITJQFNSX8814-17-58 18:27:00 Test Item Value Reference Range Interpretation Comments Monocytes (test code = Monocytes) 7.2 2.0-12.0 [facility] CenterKvwgsdzNAXCZUCSOQ9911-50-61 18:27:00 Test Item Value Reference Range Interpretation Comments Lymphocytes (test code = Lymphocytes) 12.8 20.0-40.0 [facility] HospitalGohhtegZZAATIWXAA3152-51-37 18:27:00 Test Item Value Reference Range Interpretation Comments Segs (test code = Segs) 78.4 45.0-75.0 [facility] HospitalannURINALYSIS WITH APVQN1067-25-11 06:31:00 Test Item Value Reference Range Interpretation [...] code = USPERM) /HPF NONE BASIC METABOLIC [id number] 04:20:00 Test Item Value Reference Range Interpretation [...] = 09D) 7.8 mg/dL 8.3-9.5 L CARDIAC IMRIABM7692-68-95 04:14:00 Test Item Value Reference Range Interpretation [...] MORPH (test code = RBCMOR) NORMAL CARDIAC [id number] 21:34:00 Test Item Value Reference Range Interpretation Comments TROPONIN I (test code = A84) <0.015 ng/mL 0.000-0.045 CKMB (test code = A49) 1.3 ng/mL <=3.6 CPK (test code = 32A) 50 IU/L 39-308 U/S CAROTID COLOR DOPPLER [id number] 21:13:04Examination: Bilateral carotid Doppler ultrasoundLocation code: E3Wjmhaeifwx: NoneTechnique:Clinicalhistory is remarkable for dizziness, giddiness. Real-time [...] present, no hemodynamicallysignificant stenosis identified.CT HEAD W/O OPJQQSFC8232-41-74 14:56:12CT Brain without contrast.Location code:[id number] HISTORY: [id number]: Chest painComparison: NoneTechnique: Routine unenhanced CT brain [...] acuteintracranial abnormality. Old right thalamic infarct.AMYLASE AND [id number] 14:42:00 Test Item Value Reference Range Interpretation Comments AMYLASE (test code = 10A) 68 U/L 28-100 LIPASE (test code = 60A) 130 IU/L 73-393 COMPREHENSIVE METABOLIC [id number] 14:42:00 Test Item Value Reference Range Interpretation [...] 31A) 23 IU/L <=78 PRO TIME AND [id number] 14:41:00 Test Item Value Reference Range Interpretation [...] Code is ANTI-XA XR CHEST 1 VIEW [id number] 14:38:47EXAMINATION: XR CHEST 1 VIEW PORTABLE.LOCATION: D4.HISTORY: Chest pain, dizziness.COMPARISON: None.FI NDINGS:Examination is limited due to portable technique, patient body habitus and lowlung volumes.Cardiac silhouette/Mediastinal contour: Prominence of cardiac silhouette. Lungs: No focal consolidation. No large pleural effusion. Pulmonary vascularcongestion.Osseous Structures: Mild degenerative changes of thoracic spine.IMPRESSION: Limited study, pulmonary vascular congestion.DRUGS OF [id number] 14:36:00 Test Item Value Reference Range Interpretation [...] (test code = RBCMOR) NORMAL REFERENCE LAB [id number] 19:22:00 Test Item Value Reference Range Interpretation Comments Test Name (test code = HLA TYPING RESULTS Test Name) [facility] LAB [id number] 19:22:00 Test Item Value Reference Range Interpretation Comments Test Name (test code = HLA TYPING RESULTS Test Name) [facility] [id number] 16:20:00 Test Item Value Reference Range Interpretation Comments eGFR (test code = eGFR) 12 [facility]2018-04-05 16:20:00 Test Item Value Reference Range Interpretation Comments POC Hematocrit (test code = POC 30.0 42.0-54.0 Hematocrit) [facility]2018-04-05 16:20:00 Test Item Value Reference Range Interpretation Comments POC Creatinine (test code = POC 5.0 0.5-1.4 Creatinine) [facility]2018-04-05 16:20:00 Test Item Value Reference Range Interpretation Comments POC Hemoglobin (test code = POC 10.2 14.0-18.0 Hemoglobin) [facility]2018-04-05 16:20:00 Test Item Value Reference Range Interpretation Comments POC Carbon Dioxide (test code = POC 24 24-32 Carbon Dioxide) [facility]2018-04-05 16:20:00 Test Item Value Reference Range Interpretation Comments POC BUN (test code = POC BUN) 22 7-22 [facility]2018-04-05 16:20:00 Test Item Value Reference Range Interpretation Comments POC Glucose (test code = POC Glucose) 96 70-99 [facility]2018-04-05 16:20:00 Test Item Value Reference Range Interpretation Comments POC Ion Ca (test code = POC Ion Ca) 1.06 1.05-1.25 [facility]2018-04-05 16:20:00 Test Item Value Reference Range Interpretation Comments POC AGAP (test code = POC AGAP) 16.0 10.0-20.0 [facility]2018-04-05 16:20:00 Test Item Value Reference Range Interpretation Comments POC Potassium (test code = POC 4.2 3.5-5.1 Potassium) [facility]2018-04-05 16:20:00 Test Item Value Reference Range Interpretation Comments POC Chloride (test code = POC Chloride) 103 95-109 [facility]2018-04-05 16:20:00 Test Item Value Reference Range Interpretation Comments POC Sodium (test code = POC Sodium) 137 135-145 [facility]2018-04-05 16:20:00 Test Item Value Reference Range Interpretation Comments eGFR (test code = eGFR) 12 [facility]2018-04-05 16:20:00 Test Item Value Reference Range Interpretation Comments POC Hematocrit (test code = POC 30.0 42.0-54.0 Hematocrit) [facility]2018-04-05 16:20:00 Test Item Value Reference Range Interpretation Comments POC Creatinine (test code = POC 5.0 0.5-1.4 Creatinine) [facility]2018-04-05 16:20:00 Test Item Value Reference Range Interpretation Comments POC Hemoglobin (test code = POC 10.2 14.0-18.0 Hemoglobin) [facility]2018-04-05 16:20:00 Test Item Value Reference Range Interpretation Comments POC Carbon Dioxide (test code = POC 24 24-32 Carbon Dioxide) [facility]2018-04-05 16:20:00 Test Item Value Reference Range Interpretation Comments POC BUN (test code = POC BUN) 22 7-22 [facility]2018-04-05 16:20:00 Test Item Value Reference Range Interpretation Comments POC Glucose (test code = POC Glucose) 96 70-99 [facility]2018-04-05 16:20:00 Test Item Value Reference Range Interpretation Comments POC Ion Ca (test code = POC Ion Ca) 1.06 1.05-1.25 [facility]2018-04-05 16:20:00 Test Item Value Reference Range Interpretation Comments POC AGAP (test code = POC AGAP) 16.0 10.0-20.0 [facility]2018-04-05 16:20:00 Test Item Value Reference Range Interpretation Comments POC Potassium (test code = POC 4.2 3.5-5.1 Potassium) [facility]2018-04-05 16:20:00 Test Item Value Reference Range Interpretation Comments POC Chloride (test code = POC Chloride) 103 95-109 [facility]2018-04-05 16:20:00 Test Item Value Reference Range Interpretation Comments POC Sodium (test code = POC Sodium) 137 135-145 [facility]2018-04-05 11:56:00 Test Item Value Reference Range Interpretation Comments eGFR (test code = eGFR) 12 [facility]2018-04-05 11:56:00 Test Item Value Reference Range Interpretation Comments POC Creatinine (test code = POC 5.0 0.5-1.4 Creatinine) [facility]2018-04-05 11:56:00 Test Item Value Reference Range Interpretation Comments POC Glucose (test code = POC Glucose) 109 70-99 [facility]2018-04-05 11:56:00 Test Item Value Reference Range Interpretation Comments POC BUN (test code = POC BUN) 22 7-22 [facility]2018-04-05 11:56:00 Test Item Value Reference Range Interpretation Comments POC Ion Ca (test code = POC Ion Ca) 1.08 1.05-1.25 [facility]2018-04-05 11:56:00 Test Item Value Reference Range Interpretation Comments POC AGAP (test code = POC AGAP) 18.0 10.0-20.0 [facility]2018-04-05 11:56:00 Test Item Value Reference Range Interpretation Comments POC Hemoglobin (test code = POC 11.9 14.0-18.0 Hemoglobin) [facility]2018-04-05 11:56:00 Test Item Value Reference Range Interpretation Comments POC Hematocrit (test code = POC 35.0 42.0-54.0 Hematocrit) [facility]2018-04-05 11:56:00 Test Item Value Reference Range Interpretation Comments POC Chloride (test code = POC Chloride) 103 95-109 [facility]2018-04-05 11:56:00 Test Item Value Reference Range Interpretation Comments POC Sodium (test code = POC Sodium) 139 135-145 [facility]2018-04-05 11:56:00 Test Item Value Reference Range Interpretation Comments POC Potassium (test code = POC 3.7 3.5-5.1 Potassium) [facility]2018-04-05 11:56:00 Test Item Value Reference Range Interpretation Comments POC Carbon Dioxide (test code = POC 22 24-32 Carbon Dioxide) [facility]2018-04-05 11:56:00 Test Item Value Reference Range Interpretation Comments eGFR (test code = eGFR) 12 [facility]2018-04-05 11:56:00 Test Item Value Reference Range Interpretation Comments POC Creatinine (test code = POC 5.0 0.5-1.4 Creatinine) [facility]2018-04-05 11:56:00 Test Item Value Reference Range Interpretation Comments POC Glucose (test code = POC Glucose) 109 70-99 [facility]2018-04-05 11:56:00 Test Item Value Reference Range Interpretation Comments POC BUN (test code = POC BUN) 22 7-22 [facility]2018-04-05 11:56:00 Test Item Value Reference Range Interpretation Comments POC Ion Ca (test code = POC Ion Ca) 1.08 1.05-1.25 [facility]2018-04-05 11:56:00 Test Item Value Reference Range Interpretation Comments POC AGAP (test code = POC AGAP) 18.0 10.0-20.0 [facility]2018-04-05 11:56:00 Test Item Value Reference Range Interpretation Comments POC Hemoglobin (test code = POC 11.9 14.0-18.0 Hemoglobin) [facility]2018-04-05 11:56:00 Test Item Value Reference Range Interpretation Comments POC Hematocrit (test code = POC 35.0 42.0-54.0 Hematocrit) [facility]2018-04-05 11:56:00 Test Item Value Reference Range Interpretation Comments POC Chloride (test code = POC Chloride) 103 95-109 [facility]2018-04-05 11:56:00 Test Item Value Reference Range Interpretation Comments POC Sodium (test code = POC Sodium) 139 135-145 [facility]2018-04-05 11:56:00 Test Item Value Reference Range Interpretation Comments POC Potassium (test code = POC 3.7 3.5-5.1 Potassium) [facility]2018-04-05 11:56:00 Test Item Value Reference Range Interpretation Comments POC Carbon Dioxide (test code = POC 22 24-32 Carbon Dioxide) [facility]2018-02-15 21:17:00 Test Item Value Reference Range Interpretation Comments POC Ion Ca (test code = POC Ion Ca) 1.05 1.05-1.25 [facility]2018-02-15 21:17:00 Test Item Value Reference Range Interpretation Comments POC Hemoglobin (test code = POC 11.6 14.0-18.0 Hemoglobin) [facility]2018-02-15 21:17:00 Test Item Value Reference Range Interpretation Comments POC AGAP (test code = POC AGAP) 18.0 10.0-20.0 [facility]2018-02-15 21:17:00 Test Item Value Reference Range Interpretation Comments POC Glucose (test code = POC Glucose) 88 70-99 [facility]2018-02-15 21:17:00 Test Item Value Reference Range Interpretation Comments POC Hematocrit (test code = POC 34.0 42.0-54.0 Hematocrit) [facility]2018-02-15 21:17:00 Test Item Value Reference Range Interpretation Comments POC Carbon Dioxide (test code = POC 24 24-32 Carbon Dioxide) [facility]2018-02-15 21:17:00 Test Item Value Reference Range Interpretation Comments POC Potassium (test code = POC 4.2 3.5-5.1 Potassium) [facility]2018-02-15 21:17:00 Test Item Value Reference Range Interpretation Comments POC Creatinine (test code = POC 6.2 0.5-1.4 Creatinine) [facility]2018-02-15 21:17:00 Test Item Value Reference Range Interpretation Comments POC BUN (test code = POC BUN) 27 7-22 [facility]2018-02-15 21:17:00 Test Item Value Reference Range Interpretation Comments POC Chloride (test code = POC Chloride) 103 95-109 [facility]2018-02-15 21:17:00 Test Item Value Reference Range Interpretation Comments POC Sodium (test code = POC Sodium) 139 135-145 [facility]2018-02-15 21:17:00 Test Item Value Reference Range Interpretation Comments eGFR (test code = eGFR) 9 [facility]2018-02-15 21:17:00 Test Item Value Reference Range Interpretation Comments POC Ion Ca (test code = POC Ion Ca) 1.05 1.05-1.25 [facility]2018-02-15 21:17:00 Test Item Value Reference Range Interpretation Comments POC Hemoglobin (test code = POC 11.6 14.0-18.0 Hemoglobin) [facility]2018-02-15 21:17:00 Test Item Value Reference Range Interpretation Comments POC AGAP (test code = POC AGAP) 18.0 10.0-20.0 [facility]2018-02-15 21:17:00 Test Item Value Reference Range Interpretation Comments POC Glucose (test code = POC Glucose) 88 70-99 [facility]2018-02-15 21:17:00 Test Item Value Reference Range Interpretation Comments POC Hematocrit (test code = POC 34.0 42.0-54.0 Hematocrit) [facility]2018-02-15 21:17:00 Test Item Value Reference Range Interpretation Comments POC Carbon Dioxide (test code = POC 24 24-32 Carbon Dioxide) [facility]2018-02-15 21:17:00 Test Item Value Reference Range Interpretation Comments POC Potassium (test code = POC 4.2 3.5-5.1 Potassium) [facility]2018-02-15 21:17:00 Test Item Value Reference Range Interpretation Comments POC Creatinine (test code = POC 6.2 0.5-1.4 Creatinine) [facility]2018-02-15 21:17:00 Test Item Value Reference Range Interpretation Comments POC BUN (test code = POC BUN) 27 7-22 [facility]2018-02-15 21:17:00 Test Item Value Reference Range Interpretation Comments POC Chloride (test code = POC Chloride) 103 95-109 [facility]2018-02-15 21:17:00 Test Item Value Reference Range Interpretation Comments POC Sodium (test code = POC Sodium) 139 135-145 [facility]2018-02-15 21:17:00 Test Item Value Reference Range Interpretation Comments eGFR (test code = eGFR) 9 [facility]2018-02-15 17:38:00 Test Item Value Reference Range Interpretation Comments eGFR (test code = eGFR) 9 [facility]2018-02-15 17:38:00 Test Item Value Reference Range Interpretation Comments POC Glucose (test code = POC Glucose) 108 70-99 [facility]2018-02-15 17:38:00 Test Item Value Reference Range Interpretation Comments POC Hematocrit (test code = POC 39.0 42.0-54.0 Hematocrit) [facility]2018-02-15 17:38:00 Test Item Value Reference Range Interpretation Comments POC Hemoglobin (test code = POC 13.3 14.0-18.0 Hemoglobin) [facility]2018-02-15 17:38:00 Test Item Value Reference Range Interpretation Comments POC Creatinine (test code = POC 6.2 0.5-1.4 Creatinine) [facility]2018-02-15 17:38:00 Test Item Value Reference Range Interpretation Comments POC BUN (test code = POC BUN) 27 7-22 [facility]2018-02-15 17:38:00 Test Item Value Reference Range Interpretation Comments POC Ion Ca (test code = POC Ion Ca) 1.13 1.05-1.25 [facility]2018-02-15 17:38:00 Test Item Value Reference Range Interpretation Comments POC AGAP (test code = POC AGAP) 17.0 10.0-20.0 [facility]2018-02-15 17:38:00 Test Item Value Reference Range Interpretation Comments POC Potassium (test code = POC 3.9 3.5-5.1 Potassium) [facility]2018-02-15 17:38:00 Test Item Value Reference Range Interpretation Comments POC Chloride (test code = POC Chloride) 103 95-109 [facility]2018-02-15 17:38:00 Test Item Value Reference Range Interpretation Comments POC Carbon Dioxide (test code = POC 23 24-32 Carbon Dioxide) [facility]2018-02-15 17:38:00 Test Item Value Reference Range Interpretation Comments POC Sodium (test code = POC Sodium) 138 135-145 [facility]2018-02-15 17:38:00 Test Item Value Reference Range Interpretation Comments eGFR (test code = eGFR) 9 [facility]2018-02-15 17:38:00 Test Item Value Reference Range Interpretation Comments POC Glucose (test code = POC Glucose) 108 70-99 [facility]2018-02-15 17:38:00 Test Item Value Reference Range Interpretation Comments POC Hematocrit (test code = POC 39.0 42.0-54.0 Hematocrit) [facility]2018-02-15 17:38:00 Test Item Value Reference Range Interpretation Comments POC Hemoglobin (test code = POC 13.3 14.0-18.0 Hemoglobin) [facility]2018-02-15 17:38:00 Test Item Value Reference Range Interpretation Comments POC Creatinine (test code = POC 6.2 0.5-1.4 Creatinine) [facility]2018-02-15 17:38:00 Test Item Value Reference Range Interpretation Comments POC BUN (test code = POC BUN) 27 7-22 [facility]2018-02-15 17:38:00 Test Item Value Reference Range Interpretation Comments POC Ion Ca (test code = POC Ion Ca) 1.13 1.05-1.25 [facility]2018-02-15 17:38:00 Test Item Value Reference Range Interpretation Comments POC AGAP (test code = POC AGAP) 17.0 10.0-20.0 [facility]2018-02-15 17:38:00 Test Item Value Reference Range Interpretation Comments POC Potassium (test code = POC 3.9 3.5-5.1 Potassium) [facility]2018-02-15 17:38:00 Test Item Value Reference Range Interpretation Comments POC Chloride (test code = POC Chloride) 103 95-109 [facility]2018-02-15 17:38:00 Test Item Value Reference Range Interpretation Comments POC Carbon Dioxide (test code = POC 23 24-32 Carbon Dioxide) [facility]2018-02-15 17:38:00 Test Item Value Reference Range Interpretation Comments POC Sodium (test code = POC Sodium) 138 135-145 [facility]AucgzdcUPAMSWOPSV2466-50-10 17:16:00 Test Item Value Reference Range Interpretation Comments POC Hematocrit (test code = POC 34.0 42.0-54.0 Hematocrit) [facility] [id number] 17:16:00 Test Item Value Reference Range Interpretation Comments POC Potassium (test code = POC 4.3 3.5-5.1 Potassium) [facility] Cent[id number] 17:16:00 Test Item Value Reference Range Interpretation Comments POC Sodium (test code = POC Sodium) 140 135-145 [facility] CenterQjtsogrJOWMAARCNF5099-38-66 17:16:00 Test Item Value Reference Range Interpretation Comments POC Chloride (test code = POC Chloride) 106 95-109 [facility] CenterJmjmbkxNGISQXKVSO3554-46-93 17:16:00 Test Item Value Reference Range Interpretation Comments POC Glucose (test code = POC Glucose) 118 70-99 [facility] CenterKqlmewmMXWUGBORJG4695-05-42 17:16:00 Test Item Value Reference Range Interpretation Comments POC BUN (test code = POC BUN) 04-19 [facility] CenterKkelswxGPGNKCDYYU8536-32-04 17:16:00 Test Item Value Reference Range Interpretation Comments POC Hemoglobin (test code = POC 11.6 14.0-18.0 Hemoglobin) [facility] CenterFrqstksVAWBDSBNIU0908-68-32 17:16:00 Test Item Value Reference Range Interpretation Comments POC Hematocrit (test code = POC 34.0 42.0-54.0 Hematocrit) [facility] CenterXowbqmkWQYATGAQDO8135-73-63 17:16:00 Test Item Value Reference Range Interpretation Comments POC Potassium (test code = POC 4.3 3.5-5.1 Potassium) [facility] CenterWfducloLOOPFRAXRT5310-13-10 17:16:00 Test Item Value Reference Range Interpretation Comments POC Sodium (test code = POC Sodium) 140 135-145 [facility] CenterGbhlsynPZXTUBKZMB7201-16-69 17:16:00 Test Item Value Reference Range Interpretation Comments POC Chloride (test code = POC Chloride) 106 95-109 [facility] CenterTqoitmdIELXGFVAMD9790-45-31 17:16:00 Test Item Value Reference Range Interpretation Comments POC Glucose (test code = POC Glucose) 118 70-99 [facility] CenterVwgslmgBVARGWIFAS1413-78-50 17:16:00 Test Item Value Reference Range Interpretation Comments POC BUN (test code = POC BUN) 04-19 [facility] CenterDkigsyfHOPCSBFAPC5645-73-80 17:16:00 Test Item Value Reference Range Interpretation Comments POC Hemoglobin (test code = POC 11.6 14.0-18.0 Hemoglobin) [facility] CenterDjsqkrlUBZWUQGMZY9816-70-95 12:26:00 Test Item Value Reference Range Interpretation Comments POC Hematocrit (test code = POC 39.0 42.0-54.0 Hematocrit) [facility] CenterGddldjnROHWIVOWOI6387-85-37 12:26:00 Test Item Value Reference Range Interpretation Comments POC Hemoglobin (test code = POC 13.3 14.0-18.0 Hemoglobin) [facility] CenterXaegmapWNUJWTCANZ1359-50-64 12:26:00 Test Item Value Reference Range Interpretation Comments POC BUN (test code = POC BUN) 04-19 [facility] CenterHasljcvRCVYPBPELW2158-42-16 12:26:00 Test Item Value Reference Range Interpretation Comments POC Glucose (test code = POC Glucose) 108 70-99 [facility] CenterLzycdwvUBDGQDTCWG2207-15-28 12:26:00 Test Item Value Reference Range Interpretation Comments POC Sodium (test code = POC Sodium) 139 135-145 [facility] CenterEdnndszQRJVXBIPTF8205-85-05 12:26:00 Test Item Value Reference Range Interpretation Comments POC Chloride (test code = POC Chloride) 105 95-109 [facility] CenterDnjyjyhSFLFHFJATJ9254-02-42 12:26:00 Test Item Value Reference Range Interpretation Comments POC Potassium (test code = POC 4.2 3.5-5.1 Potassium) [facility] CenterAitlkobNWBGTMJFXV4597-53-84 12:26:00 Test Item Value Reference Range Interpretation Comments POC Hematocrit (test code = POC 39.0 42.0-54.0 Hematocrit) [facility] CenterBjpnkysHEVITKLOCH4479-69-24 12:26:00 Test Item Value Reference Range Interpretation Comments POC Hemoglobin (test code = POC 13.3 14.0-18.0 Hemoglobin) [facility] CenterKdfdjpvRNTMMHQRZW3214-97-15 12:26:00 Test Item Value Reference Range Interpretation Comments POC BUN (test code = POC BUN) 04-19 [facility] CenterCayqtftGRKQACSYPK1796-59-07 12:26:00 Test Item Value Reference Range Interpretation Comments POC Glucose (test code = POC Glucose) 108 70-99 [facility] CenterSgipmwgPAMXJAKLXS1130-50-39 12:26:00 Test Item Value Reference Range Interpretation Comments POC Sodium (test code = POC Sodium) 139 135-145 [facility] CenterDoyxgjgQUZVSLCINY6327-34-38 12:26:00 Test Item Value Reference Range Interpretation Comments POC Chloride (test code = POC Chloride) 105 95-109 [facility] CenterYuokexcDVOLZKCWOE5493-44-29 12:26:00 Test Item Value Reference Range Interpretation Comments POC Potassium (test code = POC 4.2 3.5-5.1 Potassium) [facility] CenterSvkbnsbYNAVEYZEVI0093-61-33 18:25:00 Test Item Value Reference Range Interpretation Comments POC Hematocrit (test code = POC 30.0 42.0-54.0 Hematocrit) [facility] CenterJwlhathLCSXJEAQKV5936-33-58 18:25:00 Test Item Value Reference Range Interpretation Comments POC Hemoglobin (test code = POC 10.2 14.0-18.0 Hemoglobin) [facility] CenterFrsxbvsTHCYEFHDFY0591-86-89 18:25:00 Test Item Value Reference Range Interpretation Comments POC Glucose (test code = POC Glucose) 94 70-99 [facility] CenterDveodcrIIRKDJPATN0154-09-20 18:25:00 Test Item Value Reference Range Interpretation Comments POC Chloride (test code = POC Chloride) 103 95-109 [facility] CenterPrgrxwlMJCNNOJYXJ2462-56-94 18:25:00 Test Item Value Reference Range Interpretation Comments POC Sodium (test code = POC Sodium) 135 135-145 [facility] CenterXpwqtkjMUXYOINNAG1700-35-89 18:25:00 Test Item Value Reference Range Interpretation Comments POC Potassium (test code = POC 5.5 3.5-5.1 Potassium) [facility] CenterWznfcavFLBVHTECZD5919-05-62 18:25:00 Test Item Value Reference Range Interpretation Comments POC BUN (test code = POC BUN) 16 7- [facility] CenterYygpsciTHOQFVBPHE2991-15-81 18:25:00 Test Item Value Reference Range Interpretation Comments POC Hematocrit (test code = POC 30.0 42.0-54.0 Hematocrit) [facility] CenterTnijlioKLCXBJPIHM0181-13-91 18:25:00 Test Item Value Reference Range Interpretation Comments POC Hemoglobin (test code = POC 10.2 14.0-18.0 Hemoglobin) [facility] Cent[id number] 18:25:00 Test Item Value Reference Range Interpretation Comments POC Glucose (test code = POC Glucose) 94 70-99 [facility] CenterRwxtozkHVBNGREEBF8969-45-17 18:25:00 Test Item Value Reference Range Interpretation Comments POC Chloride (test code = POC Chloride) 103 95-109 [facility] CenterFvqloerFTXAKCDCHA6211-45-64 18:25:00 Test Item Value Reference Range Interpretation Comments POC Sodium (test code = POC Sodium) 135 135-145 [facility] CenterZnghppiMJBQVTTKOH1971-76-36 18:25:00 Test Item Value Reference Range Interpretation Comments POC Potassium (test code = POC 5.5 3.5-5.1 Potassium) [facility] CenterWstendgKCXONCWFZM3518-72-42 18:25:00 Test Item Value Reference Range Interpretation Comments POC BUN (test code = POC BUN) 16 7- [facility]TdfqaztTHKXIRHOFIDC8618-42-61 15:01:00 Test Item Value Reference Range Interpretation Comments POC Sodium (test code = POC Sodium) 135 135-145 [facility] HospitalJoeduooPXQPYURNTBWS2775-29-80 15:01:00 Test Item Value Reference Range Interpretation Comments POC Hematocrit (test code = POC 31.0 42.0-54.0 Hematocrit) [facility] HospitalLdttmyaCBJTKVFBXRRB9218-52-23 15:01:00 Test Item Value Reference Range Interpretation Comments POC Hemoglobin (test code = POC 10.5 14.0-18.0 Hemoglobin) [facility] HospitalXrhvvxoNGPKMBNFRIED9626-37-14 15:01:00 Test Item Value Reference Range Interpretation Comments POC Chloride (test code = POC Chloride) 101 95-109 [facility] HospitalBcccslfDYLHICZLREAZ6989-29-60 15:01:00 Test Item Value Reference Range Interpretation Comments POC Potassium (test code = POC 4.7 3.5-5.1 Potassium) [facility] HospitalSmhuithUMBTORFGRFRA9757-50-84 15:01:00 Test Item Value Reference Range Interpretation Comments POC Glucose (test code = POC Glucose) 94 70-99 [facility] HospitalCzmjhtrRFUPUIARUBFT2953-58-23 15:01:00 Test Item Value Reference Range Interpretation Comments POC BUN (test code = POC BUN) 15 04-19 [facility] HospitalEhxcdluUEWAFUREWVKA2710-23-46 15:01:00 Test Item Value Reference Range Interpretation Comments POC Sodium (test code = POC Sodium) 135 135-145 [facility] HospitalHcpkagePHRFGEHHFIDW4961-78-36 15:01:00 Test Item Value Reference Range Interpretation Comments POC Hematocrit (test code = POC 31.0 42.0-54.0 Hematocrit) [facility] [facility]jjqZDLXEDVVFEQP5227-57-94 15:01:00 Test Item Value Reference Range Interpretation Comments POC Hemoglobin (test code = POC 10.5 14.0-18.0 Hemoglobin) [facility]XwvybzsUACMVFFGOANY6302-82-54 15:01:00 Test Item Value Reference Range Interpretation Comments POC Chloride (test code = POC Chloride) 101 95-109 [facility] HospitalInmsnchWGSTRAEGOVOJ1095-42-23 15:01:00 Test Item Value Reference Range Interpretation Comments POC Potassium (test code = POC 4.7 3.5-5.1 Potassium) [facility] HospitalIocxblrRQONRIFLVGVX9752-90-76 15:01:00 Test Item Value Reference Range Interpretation Comments POC Glucose (test code = POC Glucose) 94 70-99 [facility] HospitalBsadgjwETNHASMAACEQ8799-42-02 15:01:00 Test Item Value Reference Range Interpretation Comments POC BUN (test code = POC BUN) 15 [facility]ExwebpkTGXFWOIUMH2440-34-05 21:42:00 Test Item Value Reference Range Interpretation Comments Hep B Core Ab (test Negative *NA*(04/10/17 code = Hep B Core Ab) 4:42 PM) [facility] HospitalCqqiqtwFYQCSCXRJG5104-11-41 21:42:00 Test Item Value Reference Range Interpretation Comments Hep Bs Ag (test code Negative *NA*(04/10/17 = Hep Bs Ag) 4:42 PM) [facility] HospitalDfwfbrmQXELFQAGKV9534-74-59 21:42:00 Test Item Value Reference Range Interpretation Comments Hep C Ab (test code = Positive *ABN*(04/10/17 Hep C Ab) 4:42 PM) [facility] HospitalNnqvuklXOFZYSOMID9245-28-89 21:42:00 Test Item Value Reference Range Interpretation Comments Hep Bs Ab (test code = Hep Bs Ab) no gt [facility]MewdqmbSYZMGIVACN2063-69-84 21:42:00 Test Item Value Reference Range Interpretation Comments Hep B Core Ab (test Negative *NA*(04/10/17 code = Hep B Core Ab) 4:42 PM) [facility] HospitalBektxybILAWWZFYLP0176-46-26 21:42:00 Test Item Value Reference Range Interpretation Comments Hep Bs Ag (test code Negative *NA*(04/10/17 = Hep Bs Ag) 4:42 PM) [facility] HospitalPxslbjcHNZWETQCVR7738-95-46 21:42:00 Test Item Value Reference Range Interpretation Comments Hep C Ab (test code = Positive *ABN*(04/10/17 Hep C Ab) 4:42 PM) [facility] HospitalZgshrbxFSDZJYJMJR6959-93-72 21:42:00 Test Item Value Reference Range Interpretation Comments Hep Bs Ab (test code = Hep Bs Ab) no gt [facility] HospitalNextWidgets MBRGN3839-15-53 00:27:00 Test Item Value Reference Range Interpretation Comments eGFR (test code = eGFR) 5 [facility] BMYTD6947-28-76 00:27:00 Test Item Value Reference Range Interpretation Comments Glucose Lvl (test code = Glucose Lvl) 90 70-99 [facility]2017-07-13 00:27:00 Test Item Value Reference Range Interpretation Comments BUN (test code = BUN) 66 7-22 [facility]2017-07-13 00:27:00 Test Item Value Reference Range Interpretation Comments Creatinine Lvl (test code = Creatinine 10.00 0.50-1.40 Lvl) [facility]2017-07-13 00:27:00 Test Item Value Reference Range Interpretation Comments Sodium Lvl (test code = Sodium Lvl) 136 135-145 [facility]2017-07-13 00:27:00 Test Item Value Reference Range Interpretation Comments ALT (test code = ALT) 23 See_Comment [Auto mated message] The system which ge nerated this result transmit cruz reference range : <=65. The reference range was not used to interpr et this result as gee l/abnormal. [facility]2017-07-13 00:27:00 Test Item Value Reference Range Interpretation Comments Alk Phos (test code = Alk Phos) 140 39-136 [facility]2017-07-13 00:27:00 Test Item Value Reference Range Interpretation Comments AST (test code = AST) 10 See_Comment [Auto mated message] The system which ge nerated this result transmit cruz reference range : <=37. The reference range was not used to interpr et this result as gee l/abnormal. [facility]2017-07-13 00:27:00 Test Item Value Reference Range Interpretation Comments Bili Total (test code = Bili Total) 0.2 0.2-1.3 [facility]2017-07-13 00:27:00 Test Item Value Reference Range Interpretation Comments Chloride Lvl (test code = Chloride Lvl) 104 95-109 [facility]2017-07-13 00:27:00 Test Item Value Reference Range Interpretation Comments Potassium Lvl (test code = Potassium 4.6 3.5-5.1 Lvl) [facility]2017-07-13 00:27:00 Test Item Value Reference Range Interpretation Comments CO2 (test code = CO2) 20 24-32 [facility]2017-07-13 00:27:00 Test Item Value Reference Range Interpretation Comments Calcium Lvl (test code = Calcium Lvl) 8.1 8.5-10.5 [facility]2017-07-13 00:27:00 Test Item Value Reference Range Interpretation Comments Total Protein (test code = Total 8.0 6.4-8.4 Protein) [facility]2017-07-13 00:27:00 Test Item Value Reference Range Interpretation Comments Albumin Lvl (test code = Albumin Lvl) 3.4 3.5-5.0 [facility]2017-07-13 00:27:00 Test Item Value Reference Range Interpretation Comments AGAP (test code = AGAP) 16.6 10.0-20.0 [facility]2017-07-13 00:27:00 Test Item Value Reference Range Interpretation Comments B/C Ratio (test code = B/C Ratio) 7 6-25 [facility]2017-07-13 00:27:00 Test Item Value Reference Range Interpretation Comments Globulin (test code = Globulin) 4.6 2.7-4.2 [facility]2017-07-13 00:27:00 Test Item Value Reference Range Interpretation Comments A/G Ratio (test code = A/G Ratio) 0.7 0.7-1.6 [facility] CenterQosezplKNEJCPRALL7599-95-06 00:27:00 Test Item Value Reference Range Interpretation Comments MPV (test code = MPV) 9.3 7.4-10.4 [facility] CenterPzzevaiWXYAOZJXII6765-34-32 00:27:00 Test Item Value Reference Range Interpretation Comments Hct (test code = Hct) 32.4 42.0-54.0 [facility] CenterOlvxpcdGERDPRHKKC1191-75-75 00:27:00 Test Item Value Reference Range Interpretation Comments MCV (test code = MCV) 88.9 80.0-94.0 [facility] CenterQmrdasvQIKNECTUUD5412-68-82 00:27:00 Test Item Value Reference Range Interpretation Comments MCH (test code = MCH) 29.5 pg 27.0-31.0 [facility] CenterEuharhtKPKZKTBOOB0968-11-38 00:27:00 Test Item Value Reference Range Interpretation Comments Platelet (test code = Platelet) 216 133-450 [facility] CenterSwcfaqoIFTAGMEHJA4789-57-54 00:27:00 Test Item Value Reference Range Interpretation Comments MCHC (test code = MCHC) 33.1 32.0-36.0 [facility] CenterYdlumyoAKIEMWIPPD9569-50-85 00:27:00 Test Item Value Reference Range Interpretation Comments RDW (test code = RDW) 12.6 11.5-14.5 [facility] CenterWrsbtshOWXSTJBIKQ4181-80-13 00:27:00 Test Item Value Reference Range Interpretation Comments Hgb (test code = Hgb) 10.7 14.0-18.0 [facility] CenterJpefpueXZJHLBMTYP1522-60-83 00:27:00 Test Item Value Reference Range Interpretation Comments RBC (test code = RBC) 3.65 4.70-6.10 [facility] CenterZlitvweIDZUDEVTCM0419-76-19 00:27:00 Test Item Value Reference Range Interpretation Comments WBC (test code = WBC) 8.8 3.7-10.4 [facility] CenterApkoaskISQTQLOYNY8763-21-22 00:27:00 Test Item Value Reference Range Interpretation Comments Basophils # (test code 0.0 See_Comment [Aut omated message] The = Basophils #) system which generated this result tra nsmitted reference range : <=0.2. The reference r jillian was not used to int erpret this result as normal/abnormal . [facility] CenterBciltjbEVTLRFLGPH9892-15-90 00:27:00 Test Item Value Reference Range Interpretation Comments Eosinophils # (test code 0.1 See_Comment [A utomated message] The = Eosinophils #) system whic h generated this result tra nsmitted reference range : <=0.5. The reference r jillian was not used to int erpret this result as normal/abnormal . [facility] CenterOufguqoPFNBXAGJUT5279-24-03 00:27:00 Test Item Value Reference Range Interpretation Comments Monocytes # (test code 0.5 See_Comment [Aut omated message] The = Monocytes #) system which generated this result tra nsmitted reference range : <=0.8. The reference r jillian was not used to int erpret this result as normal/abnormal . [facility] CenterRuxmpbeWLYOAUJTFB9350-50-61 00:27:00 Test Item Value Reference Range Interpretation Comments Lymphocytes # (test code = Lymphocytes 1.3 1.0-5.5 #) [facility] CenterDbkyphnCXTRKFUSJR7774-50-80 00:27:00 Test Item Value Reference Range Interpretation Comments Segs (test code = Segs) 78.2 45.0-75.0 [facility] CenterJapjnnxRLMTCZWRJI8707-79-46 00:27:00 Test Item Value Reference Range Interpretation Comments Lymphocytes (test code = Lymphocytes) 14.8 20.0-40.0 [facility] CenterDhqelqiRTHNOAWMQK9333-26-70 00:27:00 Test Item Value Reference Range Interpretation Comments Monocytes (test code = Monocytes) 5.8 2.0-12.0 [facility] CenterHtttnchPEUHZVZXRL6518-70-06 00:27:00 Test Item Value Reference Range Interpretation Comments Segs-Bands # (test code = Segs-Bands #) 6.8 1.5-8.1 [facility] CenterQmamydkCBVIMEMIRF4166-56-57 00:27:00 Test Item Value Reference Range Interpretation Comments Basophils (test code = 0.3 See_Comment [Aut omated message] The Basophils) system which nerated this result tra nsmitted reference range : <=1.0. The reference r jillian was not used to int erpret this result as normal/abnormal . [facility] CenterSqqbjbcETOIYAAEEM4019-39-69 00:27:00 Test Item Value Reference Range Interpretation Comments Eosinophils (test code = 0.9 See_Comment [A utomated message] The Eosinophils) system which ge nerated this result tra nsmitted reference range : <=4.0. The reference r jillian was not used to int erpret this result as normal/abnormal . [facility]2017-07-13 00:27:00 Test Item Value Reference Range Interpretation Comments eGFR (test code = eGFR) 5 [facility]2017-07-13 00:27:00 Test Item Value Reference Range Interpretation Comments Glucose Lvl (test code = Glucose Lvl) 90 70-99 [facility]2017-07-13 00:27:00 Test Item Value Reference Range Interpretation Comments BUN (test code = BUN) 66 7-22 [facility]2017-07-13 00:27:00 Test Item Value Reference Range Interpretation Comments Creatinine Lvl (test code = Creatinine 10.00 0.50-1.40 Lvl) [facility]2017-07-13 00:27:00 Test Item Value Reference Range Interpretation Comments Sodium Lvl (test code = Sodium Lvl) 136 135-145 [facility]2017-07-13 00:27:00 Test Item Value Reference Range Interpretation Comments ALT (test code = ALT) 23 See_Comment [Auto mated message] The system which ge nerated this result transmit cruz reference range : <=65. The reference range was not used to interpr et this result as gee l/abnormal. [facility]2017-07-13 00:27:00 Test Item Value Reference Range Interpretation Comments Alk Phos (test code = Alk Phos) 140 39-136 [facility] HospitalPlaytoxALLEGHANY HEALTHQGPQW4778-46-13 00:27:00 Test Item Value Reference Range Interpretation Comments AST (test code = AST) 10 See_Comment [Auto mated message] The system which ge nerated this result transmit cruz reference range : <=37. The reference range was not used to interpr et this result as gee l/abnormal. [facility]2017-07-13 00:27:00 Test Item Value Reference Range Interpretation Comments Bili Total (test code = Bili Total) 0.2 0.2-1.3 [facility]2017-07-13 00:27:00 Test Item Value Reference Range Interpretation Comments Chloride Lvl (test code = Chloride Lvl) 104 95-109 [facility]2017-07-13 00:27:00 Test Item Value Reference Range Interpretation Comments Potassium Lvl (test code = Potassium 4.6 3.5-5.1 Lvl) [facility]2017-07-13 00:27:00 Test Item Value Reference Range Interpretation Comments CO2 (test code = CO2) 20 24-32 [facility] HospitalPlaytoxALLEGHANY HEALTHJBCPX4024-46-74 00:27:00 Test Item Value Reference Range Interpretation Comments Calcium Lvl (test code = Calcium Lvl) 8.1 8.5-10.5 [facility] HospitalPlaytoxALLEGHANY HEALTHLKHMA2722-03-49 00:27:00 Test Item Value Reference Range Interpretation Comments Total Protein (test code = Total 8.0 6.4-8.4 Protein) [facility]2017-07-13 00:27:00 Test Item Value Reference Range Interpretation Comments Albumin Lvl (test code = Albumin Lvl) 3.4 3.5-5.0 [facility] HospitalNeurolink RTUUJ0946-93-29 00:27:00 Test Item Value Reference Range Interpretation Comments AGAP (test code = AGAP) 16.6 10.0-20.0 [facility]2017-07-13 00:27:00 Test Item Value Reference Range Interpretation Comments B/C Ratio (test code = B/C Ratio) 7 6-25 [facility]2017-07-13 00:27:00 Test Item Value Reference Range Interpretation Comments Globulin (test code = Globulin) 4.6 2.7-4.2 [facility]2017-07-13 00:27:00 Test Item Value Reference Range Interpretation Comments A/G Ratio (test code = A/G Ratio) 0.7 0.7-1.6 [facility] CenterPikbbumIMVSAFFUUP9515-51-34 00:27:00 Test Item Value Reference Range Interpretation Comments MPV (test code = MPV) 9.3 7.4-10.4 [facility] CenterWypmikwHKCFIWEDNM9036-77-61 00:27:00 Test Item Value Reference Range Interpretation Comments Hct (test code = Hct) 32.4 42.0-54.0 [facility] CenterTrtzfknKEBVMVUEKS0239-79-14 00:27:00 Test Item Value Reference Range Interpretation Comments MCV (test code = MCV) 88.9 80.0-94.0 [facility] CenterPpwsfhpJIGTTCRIUG1316-39-62 00:27:00 Test Item Value Reference Range Interpretation Comments MCH (test code = MCH) 29.5 pg 27.0-31.0 [facility] CenterLhptkoxGILBCWFWXH1016-88-23 00:27:00 Test Item Value Reference Range Interpretation Comments Platelet (test code = Platelet) 216 133-450 [facility] CenterYxgogybEGSACGLQXW7271-78-83 00:27:00 Test Item Value Reference Range Interpretation Comments MCHC (test code = MCHC) 33.1 32.0-36.0 [facility] CenterBxnopmlPNANIZVLUJ6452-14-18 00:27:00 Test Item Value Reference Range Interpretation Comments RDW (test code = RDW) 12.6 11.5-14.5 [facility] CenterDfraysmUCPEEFGLYB7883-89-65 00:27:00 Test Item Value Reference Range Interpretation Comments Hgb (test code = Hgb) 10.7 14.0-18.0 [facility] CenterQtjidbdLYESLDSZHL9798-81-00 00:27:00 Test Item Value Reference Range Interpretation Comments RBC (test code = RBC) 3.65 4.70-6.10 [facility] CenterDmqxqmqVKIEGTVACE5415-65-07 00:27:00 Test Item Value Reference Range Interpretation Comments WBC (test code = WBC) 8.8 3.7-10.4 [facility] CenterQxmtmtxSYIYEZLNMJ5310-70-14 00:27:00 Test Item Value Reference Range Interpretation Comments Basophils # (test code 0.0 See_Comment [Aut omated message] The = Basophils #) system which generated this result tra nsmitted reference range : <=0.2. The reference r jillian was not used to int erpret this result as normal/abnormal . [facility] CenterUyxzhllGPHQTIIHIC8368-91-46 00:27:00 Test Item Value Reference Range Interpretation Comments Eosinophils # (test code 0.1 See_Comment [A utomated message] The = Eosinophils #) system whic h generated this result tra nsmitted reference range : <=0.5. The reference r jillian was not used to int erpret this result as normal/abnormal . [facility] CenterJngdifqKPRMFLVWDV8010-69-31 00:27:00 Test Item Value Reference Range Interpretation Comments Monocytes # (test code 0.5 See_Comment [Aut omated message] The = Monocytes #) system which generated this result tra nsmitted reference range : <=0.8. The reference r jillian was not used to int erpret this result as normal/abnormal . [facility] CenterZnqmnmyIPQAPTSVPI8856-01-22 00:27:00 Test Item Value Reference Range Interpretation Comments Lymphocytes # (test code = Lymphocytes 1.3 1.0-5.5 #) [facility] CenterMynhtytFGBFYICEPP7293-36-99 00:27:00 Test Item Value Reference Range Interpretation Comments Segs (test code = Segs) 78.2 45.0-75.0 [facility] CenterPuhzdnoEZGHTKPFLX9761-22-42 00:27:00 Test Item Value Reference Range Interpretation Comments Lymphocytes (test code = Lymphocytes) 14.8 20.0-40.0 [facility] CenterBktaexlVIYBNOKPGH2073-75-23 00:27:00 Test Item Value Reference Range Interpretation Comments Monocytes (test code = Monocytes) 5.8 2.0-12.0 [facility] CenterIecmhnkQSGCHCXSIG8198-32-93 00:27:00 Test Item Value Reference Range Interpretation Comments Segs-Bands # (test code = Segs-Bands #) 6.8 1.5-8.1 [facility] CenterPkcyrtpAROTUTLJEG8976-72-56 00:27:00 Test Item Value Reference Range Interpretation Comments Basophils (test code = 0.3 See_Comment [Aut omated message] The Basophils) system which ge nerated this result tra nsmitted reference range : <=1.0. The reference r jillian was not used to int erpret this result as normal/abnormal . [facility] CenterJlpecucNRDYNSUADC2521-41-50 00:27:00 Test Item Value Reference Range Interpretation Comments Eosinophils (test code = 0.9 See_Comment [A utomated message] The Eosinophils) system which ge nerated this result tra nsmitted reference range : <=4.0. The reference r jillian was not used to int erpret this result as normal/abnormal . [facility]2017-07-12 22:46:00 Test Item Value Reference Range Interpretation Comments eGFR (test code = eGFR) 5 [facility]2017-07-12 22:46:00 Test Item Value Reference Range Interpretation Comments Glucose Lvl (test code = Glucose Lvl) 89 70-99 [facility]2017-07-12 22:46:00 Test Item Value Reference Range Interpretation Comments Sodium Lvl (test code = Sodium Lvl) 134 135-145 [facility]2017-07-12 22:46:00 Test Item Value Reference Range Interpretation Comments BUN (test code = BUN) 65 7-22 [facility]2017-07-12 22:46:00 Test Item Value Reference Range Interpretation Comments Potassium Lvl (test code = Potassium 4.6 3.5-5.1 Lvl) [facility]2017-07-12 22:46:00 Test Item Value Reference Range Interpretation Comments Calcium Lvl (test code = Calcium Lvl) 8.4 8.5-10.5 [facility]2017-07-12 22:46:00 Test Item Value Reference Range Interpretation Comments Chloride Lvl (test code = Chloride Lvl) 104 95-109 [facility]2017-07-12 22:46:00 Test Item Value Reference Range Interpretation Comments CO2 (test code = CO2) 21 24-32 [facility]2017-07-12 22:46:00 Test Item Value Reference Range Interpretation Comments Creatinine Lvl (test code = Creatinine 10.00 0.50-1.40 Lvl) [place] 811357-07-12 22:46:00 Test Item Value Reference Range Interpretation Comments AGAP (test code = AGAP) 13.6 10.0-20.0 [facility]2017-07-12 22:46:00 Test Item Value Reference Range Interpretation Comments eGFR (test code = eGFR) 5 [facility]2017-07-12 22:46:00 Test Item Value Reference Range Interpretation Comments Glucose Lvl (test code = Glucose Lvl) 89 70-99 [facility]2017-07-12 22:46:00 Test Item Value Reference Range Interpretation Comments Sodium Lvl (test code = Sodium Lvl) 134 135-145 [facility]2017-07-12 22:46:00 Test Item Value Reference Range Interpretation Comments BUN (test code = BUN) 65 7-22 [facility]2017-07-12 22:46:00 Test Item Value Reference Range Interpretation Comments Potassium Lvl (test code = Potassium 4.6 3.5-5.1 Lvl) [facility]2017-07-12 22:46:00 Test Item Value Reference Range Interpretation Comments Calcium Lvl (test code = Calcium Lvl) 8.4 8.5-10.5 [facility]2017-07-12 22:46:00 Test Item Value Reference Range Interpretation Comments Chloride Lvl (test code = Chloride Lvl) 104 95-109 [facility]2017-07-12 22:46:00 Test Item Value Reference Range Interpretation Comments CO2 (test code = CO2) 21 24-32 [facility]2017-07-12 22:46:00 Test Item Value Reference Range Interpretation Comments Creatinine Lvl (test code = Creatinine 10.00 0.50-1.40 Lvl) [facility]2017-07-12 22:46:00 Test Item Value Reference Range Interpretation Comments AGAP (test code = AGAP) 13.6 10.0-20.0 [facility] HospitalVmqpxjcLDBWIELWRN3560-68-83 20:03:00 Test Item Value Reference Range Interpretation Comments Hep Bs Ag (test code Negative *NA*(03/17/17 = Hep Bs Ag) 3:03 PM) [facility] HospitalOdesbuaDHELXVPXBV3485-48-84 20:03:00 Test Item Value Reference Range Interpretation Comments Hep C Ab (test code = Positive *ABN*(03/17/17 Hep C Ab) 3:03 PM) [facility] HospitalXnufaicFUMKVIUNIW6178-01-49 20:03:00 Test Item Value Reference Range Interpretation Comments Hep A IgM (test code Negative *NA*(03/17/17 = Hep A IgM) 3:03 PM) [facility] HospitalSndgkgjKVIXNMVLGY2017-62-18 20:03:00 Test Item Value Reference Range Interpretation Comments Hep B Core IgM (test Negative *NA*(03/17/17 code = Hep B Core 3:03 PM) IgM) [facility] HospitalFsfvncqYUAYRCOKIW5091-32-08 20:03:00 Test Item Value Reference Range Interpretation Comments Hep Bs Ag (test code Negative *NA*(03/17/17 = Hep Bs Ag) 3:03 PM) [facility] HospitalZtdsahpYMLSWRUJFQ2790-56-10 20:03:00 Test Item Value Reference Range Interpretation Comments Hep C Ab (test code = Positive *ABN*(03/17/17 Hep C Ab) 3:03 PM) [facility] HospitalBayurivWPUATBPXUI4487-82-11 20:03:00 Test Item Value Reference Range Interpretation Comments Hep A IgM (test code Negative *NA*(03/17/17 = Hep A IgM) 3:03 PM) [facility] HospitalUlsdoljEQFEJZZQAG5246-74-18 20:03:00 Test Item Value Reference Range Interpretation Comments Hep B Core IgM (test Negative *NA*(03/17/17 code = Hep B Core 3:03 PM) IgM) [facility] HospitalSrvpxqyZUEXUJLOWS2812-32-62 16:52:00 Test Item Value Reference Range Interpretation Comments Hep Bs Ab (test code = Hep Bs Ab) no gt [facility] HospitalGhfdkceHMFLXYUGHS5021-15-77 16:52:00 Test Item Value Reference Range Interpretation Comments Hep Bs Ab (test code = Hep Bs Ab) no gt [facility] HospitalNvwyryrXDFNQQCNRUQE1435-27-84 10:52:00 Test Item Value Reference Range Interpretation Comments AGAP (test code = AGAP) 14.8 10.0-20.0 [facility] HospitalHovpgbbSDNSZULFPUBO2599-61-85 10:52:00 Test Item Value Reference Range Interpretation Comments eGFR (test code = eGFR) 8 [facility] HospitalWjxgrflUBKTUIEEQUQK1797-78-35 10:52:00 Test Item Value Reference Range Interpretation Comments Calcium Lvl (test code = Calcium Lvl) 7.6 8.5-10.5 [facility] HospitalAynewskIBTUKIBAGZVK7904-24-01 10:52:00 Test Item Value Reference Range Interpretation Comments Glucose Lvl (test code = Glucose Lvl) 105 70-99 [facility] HospitalJtxgeuaWOYYGHHFBYYP0928-38-93 10:52:00 Test Item Value Reference Range Interpretation Comments BUN (test code = BUN) 39 7-22 [facility] HospitalWwokpeyDKRWGUELPHYU6053-95-74 10:52:00 Test Item Value Reference Range Interpretation Comments Sodium Lvl (test code = Sodium Lvl) 137 135-145 [facility] HospitalAraedqkWNHOWKWPGVIR4734-85-20 10:52:00 Test Item Value Reference Range Interpretation Comments Potassium Lvl (test code = Potassium 3.8 3.5-5.1 Lvl) [facility] HospitalSgvqzwfFAHQIVHPWPBR5996-16-05 10:52:00 Test Item Value Reference Range Interpretation Comments Creatinine Lvl (test code = Creatinine 7.44 0.50-1.40 Lvl) [facility] HospitalYnctvfcIZJHTEMXSVTC9571-02-57 10:52:00 Test Item Value Reference Range Interpretation Comments Chloride Lvl (test code = Chloride Lvl) 100 95-109 [facility] HospitalUnzdoabRKUHXUJYHCEY7213-88-54 10:52:00 Test Item Value Reference Range Interpretation Comments CO2 (test code = CO2) 26 24-32 [facility] [facility]axpiwYNSQOQXFMV4140-96-50 10:52:00 Test Item Value Reference Range Interpretation Comments Hct (test code = Hct) 35.4 42.0-54.0 [facility] CenterUdanrmxTXLYLUUVUT6402-92-22 10:52:00 Test Item Value Reference Range Interpretation Comments RBC (test code = RBC) 3.95 4.70-6.10 [facility] CenterEoqmukwETOOTQURDY8545-98-53 10:52:00 Test Item Value Reference Range Interpretation Comments Hgb (test code = Hgb) 11.7 14.0-18.0 [facility] CenterDvhsyunYDIRAQTNJI8549-10-22 10:52:00 Test Item Value Reference Range Interpretation Comments WBC (test code = WBC) 8.7 3.7-10.4 [facility] CenterIveudojVEPVZPPFCL8965-43-96 10:52:00 Test Item Value Reference Range Interpretation Comments MPV (test code = MPV) 10.2 7.4-10.4 [facility] CenterDfgxmyrFNPEALUQGE0918-95-24 10:52:00 Test Item Value Reference Range Interpretation Comments Platelet (test code = Platelet) 176 133-450 [facility] CenterKvoejqkNFCBCWUYFC8082-21-62 10:52:00 Test Item Value Reference Range Interpretation Comments RDW (test code = RDW) 13.2 11.5-14.5 [facility] CenterGykddjwJNGHXAGILU5025-86-76 10:52:00 Test Item Value Reference Range Interpretation Comments MCHC (test code = MCHC) 33.0 32.0-36.0 [facility] CenterIgwoicnJMARHMIPPI0711-03-04 10:52:00 Test Item Value Reference Range Interpretation Comments MCV (test code = MCV) 89.6 80.0-94.0 [facility] CenterJjwrxvrULETJDZKCJ6760-47-68 10:52:00 Test Item Value Reference Range Interpretation Comments MCH (test code = MCH) 29.5 pg 27.0-31.0 [facility] HospitalArpefkhTCNGBDQCLQGM4651-44-01 10:52:00 Test Item Value Reference Range Interpretation Comments AGAP (test code = AGAP) 14.8 10.0-20.0 [facility] HospitalMpodnrwDPRPTGYBPEAM6335-02-44 10:52:00 Test Item Value Reference Range Interpretation Comments eGFR (test code = eGFR) 8 [facility] HospitalSargtjbQJMAQHVIEQJB8765-02-57 10:52:00 Test Item Value Reference Range Interpretation Comments Calcium Lvl (test code = Calcium Lvl) 7.6 8.5-10.5 [facility] HospitalNazjiqeKSSXYXQRGTQX0068-82-98 10:52:00 Test Item Value Reference Range Interpretation Comments Glucose Lvl (test code = Glucose Lvl) 105 70-99 [facility] HospitalZkocmhnQJFAOMMBUNSY4162-37-79 10:52:00 Test Item Value Reference Range Interpretation Comments BUN (test code = BUN) 39 7-22 [facility] HospitalVqxykphMRTLKOTDPOTM2770-14-25 10:52:00 Test Item Value Reference Range Interpretation Comments Sodium Lvl (test code = Sodium Lvl) 137 135-145 [facility] HospitalZakmvxtYALJUNTGRHJH3291-08-57 10:52:00 Test Item Value Reference Range Interpretation Comments Potassium Lvl (test code = Potassium 3.8 3.5-5.1 Lvl) [facility] HospitalZpmnnwqVRVFAPMZFSWX2873-36-80 10:52:00 Test Item Value Reference Range Interpretation Comments Creatinine Lvl (test code = Creatinine 7.44 0.50-1.40 Lvl) [facility] HospitalWxsuoenRHBAASLGGRTK5368-16-21 10:52:00 Test Item Value Reference Range Interpretation Comments Chloride Lvl (test code = Chloride Lvl) 100 95-109 [facility] HospitalCtbmwhlVJRDCMXBLJCH8457-87-56 10:52:00 Test Item Value Reference Range Interpretation Comments CO2 (test code = CO2) 26 24-32 [facility] CenterSszfbxvGWZAORAIUG1538-29-19 10:52:00 Test Item Value Reference Range Interpretation Comments Hct (test code = Hct) 35.4 42.0-54.0 [facility] CenterVzkxkvhEAUXOJPYSL5256-79-29 10:52:00 Test Item Value Reference Range Interpretation Comments RBC (test code = RBC) 3.95 4.70-6.10 [facility] CenterFmjhernSPMIBMHYCA6161-56-61 10:52:00 Test Item Value Reference Range Interpretation Comments Hgb (test code = Hgb) 11.7 14.0-18.0 [facility] CenterPexqkfuIPFRRIEVVQ5292-44-55 10:52:00 Test Item Value Reference Range Interpretation Comments WBC (test code = WBC) 8.7 3.7-10.4 [facility] CenterQjxocfkIJHFGAEMSI5874-03-64 10:52:00 Test Item Value Reference Range Interpretation Comments MPV (test code = MPV) 10.2 7.4-10.4 [facility] CenterBiumbqxGVTGOTSGYF6604-14-64 10:52:00 Test Item Value Reference Range Interpretation Comments Platelet (test code = Platelet) 176 133-450 [facility] CenterKadtykcHVDGJJWCVZ9984-99-80 10:52:00 Test Item Value Reference Range Interpretation Comments RDW (test code = RDW) 13.2 11.5-14.5 [facility] CenterDlkaemtSGFIRLEODX9104-95-09 10:52:00 Test Item Value Reference Range Interpretation Comments MCHC (test code = MCHC) 33.0 32.0-36.0 [facility] CenterZyzhtumDOOTJZBCOB5560-18-63 10:52:00 Test Item Value Reference Range Interpretation Comments MCV (test code = MCV) 89.6 80.0-94.0 [facility] CenterZlhodpmHTZJJNZFXD8969-34-79 10:52:00 Test Item Value Reference Range Interpretation Comments MCH (test code = MCH) 29.5 pg 27.0-31.0 [facility] HospitalGdawzehAWNVBMBDWC0896-49-30 20:06:00 Test Item Value Reference Range Interpretation Comments Hep A IgM (test code Negative *NA*(03/13/17 = Hep A IgM) 3:06 PM) [facility]ZmiogxrBYDIHWLXTG5752-80-03 20:06:00 Test Item Value Reference Range Interpretation Comments Hep Bs Ag (test code Negative *NA*(03/13/17 = Hep Bs Ag) 3:06 PM) [facility] HospitalQbkgymqHIHZRDSTBD9520-35-08 20:06:00 Test Item Value Reference Range Interpretation Comments Hep B Core IgM (test Negative *NA*(03/13/17 code = Hep B Core 3:06 PM) IgM) [facility] HospitalGxkllqwDMLPXYTGHH7627-86-33 20:06:00 Test Item Value Reference Range Interpretation Comments Hep C Ab (test code = Positive *ABN*(03/13/17 Hep C Ab) 3:06 PM) [facility] HospitalMbtpzjlIYOTOARPIG0486-98-40 20:06:00 Test Item Value Reference Range Interpretation Comments Hep B Core Ab (test Negative *NA*(03/13/17 code = Hep B Core Ab) 3:06 PM) [facility] HospitalFwuycstJUCLDMQRQW3330-12-47 20:06:00 Test Item Value Reference Range Interpretation Comments Hep A IgM (test code Negative *NA*(03/13/17 = Hep A IgM) 3:06 PM) [facility] HospitalChrsmnrJEDDILOBBT7721-24-64 20:06:00 Test Item Value Reference Range Interpretation Comments Hep Bs Ag (test code Negative *NA*(03/13/17 = Hep Bs Ag) 3:06 PM) [facility] HospitalTyqqvwmIVUBKZMFKE5172-09-50 20:06:00 Test Item Value Reference Range Interpretation Comments Hep B Core IgM (test Negative *NA*(03/13/17 code = Hep B Core 3:06 PM) IgM) [facility] HospitalEgonxdrLGHSHGBCJD2550-57-04 20:06:00 Test Item Value Reference Range Interpretation Comments Hep C Ab (test code = Positive *ABN*(03/13/17 Hep C Ab) 3:06 PM) [facility] HospitalBnlsrfiVJJPANLYNV4428-81-57 20:06:00 Test Item Value Reference Range Interpretation Comments Hep B Core Ab (test Negative *NA*(03/13/17 code = Hep B Core Ab) 3:06 PM) [facility] HospitalOxdyklyROIQJJMTNL4781-44-71 11:14:00 Test Item Value Reference Range Interpretation Comments Hep Be Ab (test code = Hep Be Ab) Negative [facility] YduheevHYTUAJRWYE2247-03-83 11:14:00 Test Item Value Reference Range Interpretation Comments Hep Be Ab (test code = Hep Be Ab) Negative [facility]KnhglkmSLELSRUQGM1857-91-00 23:21:00 Test Item Value Reference Range Interpretation Comments Hep Bs Ag (test code Negative *NA*(03/12/17 = Hep Bs Ag) 6:21 PM) [facility] HospitalMoigfsdLOIGMPDZTG2447-04-15 23:21:00 Test Item Value Reference Range Interpretation Comments Hep Bs Ag (test code Negative *NA*(03/12/17 = Hep Bs Ag) 6:21 PM) [facility] HospitalAxzrsjmFWWHKJUEWH8226-12-70 23:21:00 Test Item Value Reference Range Interpretation Comments Hep B Core Ab (test Negative *NA*(03/12/17 code = Hep B Core Ab) 6:21 PM) [facility] HospitalHrcrzqeTTLLUOHGCO5637-41-28 23:21:00 Test Item Value Reference Range Interpretation Comments Hep Bs Ag (test code Negative *NA*(03/12/17 = Hep Bs Ag) 6:21 PM) [facility] UanoxcdUZXWCMOAMD0594-27-82 23:21:00 Test Item Value Reference Range Interpretation Comments Hep Bs Ag (test code Negative *NA*(03/12/17 = Hep Bs Ag) 6:21 PM) [facility] HospitalLpkkzeyLLCFDRBMWQ2429-56-83 23:21:00 Test Item Value Reference Range Interpretation Comments Hep B Core Ab (test Negative *NA*(03/12/17 code = Hep B Core Ab) 6:21 PM) [facility] HospitalannCHEM JXDLC6592-10-75 11:03:00 Test Item Value Reference Range Interpretation Comments Magnesium Lvl (test code = Magnesium 2.0 1.8-2.4 Lvl) [facility] HospitalPredoecTVZRSYIUBRRU1744-11-50 11:03:00 Test Item Value Reference Range Interpretation Comments AGAP (test code = AGAP) 15.8 10.0-20.0 [facility] MxrzanfLNRCQDOMCCHK4372-32-22 11:03:00 Test Item Value Reference Range Interpretation Comments Phosphorus (test code = Phosphorus) 6.2 2.5-4.5 [facility] VapxvmiVCAWFJHPHGKH0081-10-98 11:03:00 Test Item Value Reference Range Interpretation Comments Albumin Lvl (test code = Albumin Lvl) 2.7 3.5-5.0 [facility] HospitalTpwezrvQTOCWENITWPJ3874-04-39 11:03:00 Test Item Value Reference Range Interpretation Comments Chloride Lvl (test code = Chloride Lvl) 108 95-109 [facility] HospitalRpiaoqcTJIJNZHWWQHL2228-94-02 11:03:00 Test Item Value Reference Range Interpretation Comments CO2 (test code = CO2) 20 24-32 [facility] HospitalQztqslcUFTZRLHAHHIH8237-89-77 11:03:00 Test Item Value Reference Range Interpretation Comments Calcium Lvl (test code = Calcium Lvl) 7.4 8.5-10.5 [facility] HospitalJaqivatIYYPZLMRDBHP2530-17-17 11:03:00 Test Item Value Reference Range Interpretation Comments Sodium Lvl (test code = Sodium Lvl) 139 135-145 [facility] HospitalSfknhlmWCEDSZLGANIN4207-88-55 11:03:00 Test Item Value Reference Range Interpretation Comments Creatinine Lvl (test code = Creatinine 9.27 0.50-1.40 Lvl) [facility] HospitalYmasfiwPLIUZLKMIZJS0482-67-70 11:03:00 Test Item Value Reference Range Interpretation Comments BUN (test code = BUN) 60 7-22 [facility] HospitalQlhrfkuLJPUMIPTVQAX7801-70-80 11:03:00 Test Item Value Reference Range Interpretation Comments Potassium Lvl (test code = Potassium 4.8 3.5-5.1 Lvl) [facility] HospitalObgyzarKTEUDWRYEDXC5624-46-03 11:03:00 Test Item Value Reference Range Interpretation Comments Glucose Lvl (test code = Glucose Lvl) 88 70-99 [facility] HospitalReokizaXKVQRFZVGKRG9947-25-18 11:03:00 Test Item Value Reference Range Interpretation Comments eGFR (test code = eGFR) 6 [facility] HospitalCHEM OESED2750-74-37 11:03:00 Test Item Value Reference Range Interpretation Comments Magnesium Lvl (test code = Magnesium 2.0 1.8-2.4 Lvl) [facility] HospitalZuveyvoUGNDJCNEIAQS8558-94-67 11:03:00 Test Item Value Reference Range Interpretation Comments AGAP (test code = AGAP) 15.8 10.0-20.0 [facility] HospitalKsxfqghTYEQRERSTHYE3044-71-22 11:03:00 Test Item Value Reference Range Interpretation Comments Phosphorus (test code = Phosphorus) 6.2 2.5-4.5 [facility] HospitalDfcvhqjKCHOVZAVPIZZ3767-22-27 11:03:00 Test Item Value Reference Range Interpretation Comments Albumin Lvl (test code = Albumin Lvl) 2.7 3.5-5.0 [facility] HospitalEgdqryuFQDFGPJMBFGP7152-26-02 11:03:00 Test Item Value Reference Range Interpretation Comments Chloride Lvl (test code = Chloride Lvl) 108 95-109 [facility] HospitalTyernbeECVECYKEGHDD2492-76-40 11:03:00 Test Item Value Reference Range Interpretation Comments CO2 (test code = CO2) 20 24-32 [facility] HospitalPwnnwccEHUDIFJWUGIP0276-53-39 11:03:00 Test Item Value Reference Range Interpretation Comments Calcium Lvl (test code = Calcium Lvl) 7.4 8.5-10.5 [facility] HospitalRgbacqgJEPUQEYRMOOB6040-78-88 11:03:00 Test Item Value Reference Range Interpretation Comments Sodium Lvl (test code = Sodium Lvl) 139 135-145 [facility] HospitalRxxqhnoCNOYKQIHZXGQ6628-64-13 11:03:00 Test Item Value Reference Range Interpretation Comments Creatinine Lvl (test code = Creatinine 9.27 0.50-1.40 Lvl) [facility] HospitalQndnyghIQFFRDKBPDUG3793-09-79 11:03:00 Test Item Value Reference Range Interpretation Comments BUN (test code = BUN) 60 7-22 [facility] HospitalKudmyviSMYYZUUUZLTW0938-89-91 11:03:00 Test Item Value Reference Range Interpretation Comments Potassium Lvl (test code = Potassium 4.8 3.5-5.1 Lvl) [facility] HospitalXqnfpfoIJGTXMEKCVNU0132-03-20 11:03:00 Test Item Value Reference Range Interpretation Comments Glucose Lvl (test code = Glucose Lvl) 88 70-99 [facility] HospitalZdvxxwaMXREAQYXJDIJ5057-90-09 11:03:00 Test Item Value Reference Range Interpretation Comments eGFR (test code = eGFR) 6 [facility] UUDV0475-97-61 18:59:00 Test Item Value Reference Range Interpretation Comments U Creatinine (test code = U Creatinine) 76.70 [facility] ACUL3867-70-90 18:59:00 Test Item Value Reference Range Interpretation Comments U Protein (test code = U Protein) 360.8 [facility] KLWE1674-81-91 18:59:00 Test Item Value Reference Range Interpretation Comments U Eos (test code = U None Seen (03/11/17 1:59 Eos) PM) [facility]annBALDPATE HOSPITALNZIS7482-60-48 18:59:00 Test Item Value Reference Range Interpretation Comments U Sodium (test code = U Sodium) 68 [facility]2017-06-13 18:59:00 Test Item Value Reference Range Interpretation Comments U Prot/Creat (test code = U Prot/Creat) 4.7 [facility]annBALDPATE HOSPITALLBOD1372-37-38 18:59:00 Test Item Value Reference Range Interpretation Comments U Creatinine (test code = U Creatinine) 76.70 [facility]annBALDPATE HOSPITALZLMP3233-64-86 18:59:00 Test Item Value Reference Range Interpretation Comments U Protein (test code = U Protein) 360.8 [facility]annBALDPATE HOSPITALDHLK5082-65-27 18:59:00 Test Item Value Reference Range Interpretation Comments U Eos (test code = U None Seen (03/11/17 1:59 Eos) PM) [facility]2017-06-13 18:59:00 Test Item Value Reference Range Interpretation Comments U Sodium (test code = U Sodium) 68 [facility]2017-06-13 18:59:00 Test Item Value Reference Range Interpretation Comments U Prot/Creat (test code = U Prot/Creat) 4.7 [facility]2017-06-13 09:56:00 Test Item Value Reference Range Interpretation Comments A/G Ratio (test code = A/G Ratio) 0.6 0.7-1.6 [facility]2017-06-13 09:56:00 Test Item Value Reference Range Interpretation Comments AGAP (test code = AGAP) 16.5 10.0-20.0 [facility]annALLEGHANY HEALTHLCEEE2192-31-18 09:56:00 Test Item Value Reference Range Interpretation Comments B/C Ratio (test code = B/C Ratio) 6 6-25 [facility]2017-06-13 09:56:00 Test Item Value Reference Range Interpretation Comments Globulin (test code = Globulin) 4.6 2.7-4.2 [facility] XSYZJ5267-79-00 09:56:00 Test Item Value Reference Range Interpretation Comments Bili Total (test code = Bili Total) 0.3 0.2-1.3 [facility]2017-06-13 09:56:00 Test Item Value Reference Range Interpretation Comments Alk Phos (test code = Alk Phos) 123 39-136 [facility]2017-06-13 09:56:00 Test Item Value Reference Range Interpretation Comments AST (test code = AST) 12 See_Comment [Auto mated message] The system which ge nerated this result transmit cruz reference range : <=37. The reference range was not used to interpr et this result as gee l/abnormal. [facility]2017-06-13 09:56:00 Test Item Value Reference Range Interpretation Comments Total Protein (test code = Total 7.3 6.4-8.4 Protein) [facility]2017-06-13 09:56:00 Test Item Value Reference Range Interpretation Comments Albumin Lvl (test code = Albumin Lvl) 2.7 3.5-5.0 [facility]2017-06-13 09:56:00 Test Item Value Reference Range Interpretation Comments ALT (test code = ALT) 17 See_Comment [Auto mated message] The system which ge nerated this result transmit cruz reference range : <=65. The reference range was not used to interpr et this result as gee l/abnormal. [facility]2017-06-13 09:56:00 Test Item Value Reference Range Interpretation Comments CO2 (test code = CO2) 21 24-32 [facility]2017-06-13 09:56:00 Test Item Value Reference Range Interpretation Comments Calcium Lvl (test code = Calcium Lvl) 7.5 8.5-10.5 [facility]2017-06-13 09:56:00 Test Item Value Reference Range Interpretation Comments Potassium Lvl (test code = Potassium 4.5 3.5-5.1 Lvl) [facility]2017-06-13 09:56:00 Test Item Value Reference Range Interpretation Comments Creatinine Lvl (test code = Creatinine 9.18 0.50-1.40 Lvl) [facility]2017-06-13 09:56:00 Test Item Value Reference Range Interpretation Comments Sodium Lvl (test code = Sodium Lvl) 141 135-145 [facility]2017-06-13 09:56:00 Test Item Value Reference Range Interpretation Comments BUN (test code = BUN) 59 7-22 [facility]2017-06-13 09:56:00 Test Item Value Reference Range Interpretation Comments Chloride Lvl (test code = Chloride Lvl) 108 95-109 [facility]2017-06-13 09:56:00 Test Item Value Reference Range Interpretation Comments eGFR (test code = eGFR) 6 [facility]2017-06-13 09:56:00 Test Item Value Reference Range Interpretation Comments Glucose Lvl (test code = Glucose Lvl) 86 70-99 [place] 811357-06-13 09:56:00 Test Item Value Reference Range Interpretation Comments Phosphorus (test code = Phosphorus) 5.9 2.5-4.5 [facility]2017-06-13 09:56:00 Test Item Value Reference Range Interpretation Comments Magnesium Lvl (test code = Magnesium 2.0 1.8-2.4 Lvl) [facility] CenterEompzhxQLOACIXGVB6709-19-53 09:56:00 Test Item Value Reference Range Interpretation Comments Platelet (test code = Platelet) 225 133-450 [facility] CenterUlaoqmuXPYRYKIQFH2609-67-04 09:56:00 Test Item Value Reference Range Interpretation Comments MPV (test code = MPV) 10.2 7.4-10.4 [facility] CenterTsxnatoCORRCNLTTY3486-73-55 09:56:00 Test Item Value Reference Range Interpretation Comments MCHC (test code = MCHC) 32.5 32.0-36.0 [facility] CenterMqeztcsSJSTHJSOOD3957-89-00 09:56:00 Test Item Value Reference Range Interpretation Comments RDW (test code = RDW) 12.9 11.5-14.5 [facility] CenterYsnticqHPNTYLVMNH1069-97-70 09:56:00 Test Item Value Reference Range Interpretation Comments MCV (test code = MCV) 89.7 80.0-94.0 [facility] CenterVhwxppjKCQLZJYIBV1793-25-79 09:56:00 Test Item Value Reference Range Interpretation Comments MCH (test code = MCH) 29.1 pg 27.0-31.0 [facility] CenterKtitrvvATMSLLVCJE9039-29-72 09:56:00 Test Item Value Reference Range Interpretation Comments Hct (test code = Hct) 37.0 42.0-54.0 [facility] CenterJpnohgwXPMCGQEJHG3177-57-81 09:56:00 Test Item Value Reference Range Interpretation Comments RBC (test code = RBC) 4.12 4.70-6.10 [facility] CenterSflvrtvBIAUQAHGEH8885-63-44 09:56:00 Test Item Value Reference Range Interpretation Comments Hgb (test code = Hgb) 12.0 14.0-18.0 [facility] CenterCejtwwjZAKFKVGTDO8250-92-45 09:56:00 Test Item Value Reference Range Interpretation Comments WBC (test code = WBC) 8.8 3.7-10.4 [facility] CenterFpusvvlSQKPSFWUVC4845-52-45 09:56:00 Test Item Value Reference Range Interpretation Comments Monocytes (test code = Monocytes) 9.7 2.0-12.0 [facility] CenterSrqibwoUQXWFIZRSP1241-65-06 09:56:00 Test Item Value Reference Range Interpretation Comments Eosinophils (test code = 2.8 See_Comment [A utomated message] The Eosinophils) system which ge nerated this result tra nsmitted reference range : <=4.0. The reference r jillian was not used to int erpret this result as normal/abnormal . [facility] CenterGoqwbvkXVHMGCOLUN8051-28-87 09:56:00 Test Item Value Reference Range Interpretation Comments Segs (test code = Segs) 62.8 45.0-75.0 [facility] CenterSifsjlnBKYQNJZRWA3399-05-94 09:56:00 Test Item Value Reference Range Interpretation Comments Lymphocytes (test code = Lymphocytes) 23.8 20.0-40.0 [facility] CenterNdgjqyhRZPNYVIKAU3889-11-97 09:56:00 Test Item Value Reference Range Interpretation Comments Basophils # (test code 0.1 See_Comment [Aut omated message] The = Basophils #) system which generated this result tra nsmitted reference range : <=0.2. The reference r jillian was not used to int erpret this result as normal/abnormal . [facility] CenterBmvdvseRJIYVQKUAA5574-57-68 09:56:00 Test Item Value Reference Range Interpretation Comments Lymphocytes # (test code = Lymphocytes 2.1 1.0-5.5 #) [facility] CenterGkpsriwKUTZXMTSQG6207-64-18 09:56:00 Test Item Value Reference Range Interpretation Comments Basophils (test code = 0.9 See_Comment [Aut omated message] The Basophils) system which ge nerated this result tra nsmitted reference range : <=1.0. The reference r jillain was not used to int erpret this result as normal/abnormal . [facility] CenterIegvgzkUDQEPVXJHM3073-96-07 09:56:00 Test Item Value Reference Range Interpretation Comments Eosinophils # (test code 0.2 See_Comment [A utomated message] The = Eosinophils #) system whic h generated this result tra nsmitted reference range : <=0.5. The reference r jillian was not used to int erpret this result as normal/abnormal . [facility] CenterMhahcizZRPQKKZTUZ1371-09-32 09:56:00 Test Item Value Reference Range Interpretation Comments Segs-Bands # (test code = Segs-Bands #) 5.5 1.5-8.1 [facility] CenterHwulosuLHTAWDEHYF5285-58-70 09:56:00 Test Item Value Reference Range Interpretation Comments Monocytes # (test code 0.9 See_Comment [Aut omated message] The = Monocytes #) system which generated this result tra nsmitted reference range : <=0.8. The reference r jillian was not used to int erpret this result as normal/abnormal . [facility]2017-06-13 09:56:00 Test Item Value Reference Range Interpretation Comments Ca Norm WB (test code = Ca Norm WB) 0.93 1.05-1.25 [facility]2017-06-13 09:56:00 Test Item Value Reference Range Interpretation Comments Ca Ion WB (test code = Ca Ion WB) 0.97 1.05-1.25 [facility]2017-06-13 09:56:00 Test Item Value Reference Range Interpretation Comments A/G Ratio (test code = A/G Ratio) 0.6 0.7-1.6 [facility]2017-06-13 09:56:00 Test Item Value Reference Range Interpretation Comments AGAP (test code = AGAP) 16.5 10.0-20.0 [facility]2017-06-13 09:56:00 Test Item Value Reference Range Interpretation Comments B/C Ratio (test code = B/C Ratio) 6 6-25 [facility]2017-06-13 09:56:00 Test Item Value Reference Range Interpretation Comments Globulin (test code = Globulin) 4.6 2.7-4.2 [facility]2017-06-13 09:56:00 Test Item Value Reference Range Interpretation Comments Bili Total (test code = Bili Total) 0.3 0.2-1.3 [facility]2017-06-13 09:56:00 Test Item Value Reference Range Interpretation Comments Alk Phos (test code = Alk Phos) 123 39-136 [facility]2017-06-13 09:56:00 Test Item Value Reference Range Interpretation Comments AST (test code = AST) 12 See_Comment [Auto mated message] The system which ge nerated this result transmit cruz reference range : <=37. The reference range was not used to interpr et this result as gee l/abnormal. [facility]2017-06-13 09:56:00 Test Item Value Reference Range Interpretation Comments Total Protein (test code = Total 7.3 6.4-8.4 Protein) [facility] [facility] 09:[facility]:00 Test Item Value Reference Range Interpretation Comments Albumin Lvl (test code = Albumin Lvl) 2.7 3.5-5.0 [facility]2017-06-13 09:56:00 Test Item Value Reference Range Interpretation Comments ALT (test code = ALT) 17 See_Comment [Auto mated message] The system which ge nerated this result transmit cruz reference range : <=65. The reference range was not used to interpr et this result as gee l/abnormal. [facility]2017-06-13 09:56:00 Test Item Value Reference Range Interpretation Comments CO2 (test code = CO2) 21 24-32 [facility]2017-06-13 09:56:00 Test Item Value Reference Range Interpretation Comments Calcium Lvl (test code = Calcium Lvl) 7.5 8.5-10.5 [facility]2017-06-13 09:56:00 Test Item Value Reference Range Interpretation Comments Potassium Lvl (test code = Potassium 4.5 3.5-5.1 Lvl) [facility]2017-06-13 09:56:00 Test Item Value Reference Range Interpretation Comments Creatinine Lvl (test code = Creatinine 9.18 0.50-1.40 Lvl) [facility]2017-06-13 09:56:00 Test Item Value Reference Range Interpretation Comments Sodium Lvl (test code = Sodium Lvl) 141 135-145 [facility]2017-06-13 09:56:00 Test Item Value Reference Range Interpretation Comments BUN (test code = BUN) 59 7-22 [facility]2017-06-13 09:56:00 Test Item Value Reference Range Interpretation Comments Chloride Lvl (test code = Chloride Lvl) 108 95-109 [facility]2017-06-13 09:56:00 Test Item Value Reference Range Interpretation Comments eGFR (test code = eGFR) 6 [facility]2017-06-13 09:56:00 Test Item Value Reference Range Interpretation Comments Glucose Lvl (test code = Glucose Lvl) 86 70-99 [facility]2017-06-13 09:56:00 Test Item Value Reference Range Interpretation Comments Phosphorus (test code = Phosphorus) 5.9 2.5-4.5 [facility]2017-06-13 09:56:00 Test Item Value Reference Range Interpretation Comments Magnesium Lvl (test code = Magnesium 2.0 1.8-2.4 Lvl) [facility]WzddlzeKEQNWKREJI3199-90-70 09:56:00 Test Item Value Reference Range Interpretation Comments Platelet (test code = Platelet) 225 133-450 [facility] CenterWbdwvcrUKCZWNUAVV5840-23-82 09:56:00 Test Item Value Reference Range Interpretation Comments MPV (test code = MPV) 10.2 7.4-10.4 [facility] CenterLtwkompZQZRZPNVJN1132-06-98 09:56:00 Test Item Value Reference Range Interpretation Comments MCHC (test code = MCHC) 32.5 32.0-36.0 [facility] CenterRkxamljDQWADPUVCR6643-92-67 09:56:00 Test Item Value Reference Range Interpretation Comments RDW (test code = RDW) 12.9 11.5-14.5 [facility] CenterQyzfizpVIVKAALTKK6216-40-08 09:56:00 Test Item Value Reference Range Interpretation Comments MCV (test code = MCV) 89.7 80.0-94.0 [facility] CenterUjiujjqFYMAAGNUDK8645-50-89 09:56:00 Test Item Value Reference Range Interpretation Comments MCH (test code = MCH) 29.1 pg 27.0-31.0 [facility] CenterQdhfvlwDRQHTLAKSS4486-92-28 09:56:00 Test Item Value Reference Range Interpretation Comments Hct (test code = Hct) 37.0 42.0-54.0 [facility] CenterBootxfdUDSOLAOQVP6146-90-36 09:56:00 Test Item Value Reference Range Interpretation Comments RBC (test code = RBC) 4.12 4.70-6.10 [facility] CenterWnxnuepCXDMNTZAEX2787-98-90 09:56:00 Test Item Value Reference Range Interpretation Comments Hgb (test code = Hgb) 12.0 14.0-18.0 [facility] CenterJqpjxswTJCSWHCJIN3240-20-66 09:56:00 Test Item Value Reference Range Interpretation Comments WBC (test code = WBC) 8.8 3.7-10.4 [facility] CenterIdjkxjmJGFLHPPLUR9848-24-74 09:56:00 Test Item Value Reference Range Interpretation Comments Monocytes (test code = Monocytes) 9.7 2.0-12.0 [facility] CenterPzeihbfNKPQSYVQZI6693-09-95 09:56:00 Test Item Value Reference Range Interpretation Comments Eosinophils (test code = 2.8 See_Comment [A utomated message] The Eosinophils) system which ge nerated this result tra nsmitted reference range : <=4.0. The reference r jillian was not used to int erpret this result as normal/abnormal . [facility] CenterLqsciipXXXAQRSMTS0805-97-79 09:56:00 Test Item Value Reference Range Interpretation Comments Segs (test code = Segs) 62.8 45.0-75.0 [facility] CenterYelrgwhRZBJRTDDZN2325-66-52 09:56:00 Test Item Value Reference Range Interpretation Comments Lymphocytes (test code = Lymphocytes) 23.8 20.0-40.0 [facility] CenterGbgyoisKLSYBWKISF6258-06-99 09:56:00 Test Item Value Reference Range Interpretation Comments Basophils # (test code 0.1 See_Comment [Aut omated message] The = Basophils #) system which generated this result tra nsmitted reference range : <=0.2. The reference r jillian was not used to int erpret this result as normal/abnormal . [facility] CenterDinepwsXYNSRYNOWS7490-32-01 09:56:00 Test Item Value Reference Range Interpretation Comments Lymphocytes # (test code = Lymphocytes 2.1 1.0-5.5 #) [facility] CenterMlldfklOPCTILTPRR5952-54-85 09:56:00 Test Item Value Reference Range Interpretation Comments Basophils (test code = 0.9 See_Comment [Aut omated message] The Basophils) system which ge nerated this result tra nsmitted reference range : <=1.0. The reference r jillian was not used to int erpret this result as normal/abnormal . [facility]MKES[facility]SYJR3651[facility] 09:56:00 Test Item Value Reference Range Interpretation Comments Eosinophils # (test code 0.2 See_Comment [A utomated message] The = Eosinophils #) system whic h generated this result tra nsmitted reference range : <=0.5. The reference r jillian was not used to int erpret this result as normal/abnormal . [facility]LqrqwvaZVWXQXGJFQ7261-31-49 09:56:00 Test Item Value Reference Range Interpretation Comments Segs-Bands # (test code = Segs-Bands #) 5.5 1.5-8.1 [facility]CsdptihHXKEZMHDTN2374-97-36 09:56:00 Test Item Value Reference Range Interpretation Comments Monocytes # (test code 0.9 See_Comment [Aut omated message] The = Monocytes #) system which generated this result tra nsmitted reference range : <=0.8. The reference r jillian was not used to int erpret this result as normal/abnormal . [facility]PAR[facility] QSJNBWF0488-27-33 09:56:00 Test Item Value Reference Range Interpretation Comments Ca Norm WB (test code = Ca Norm WB) 0.93 1.05-1.25 [facility] HospitalPARATHYROID MHVMHWV0240-49-44 09:56:00 Test Item Value Reference Range Interpretation Comments Ca Ion WB (test code = Ca Ion WB) 0.97 1.05-1.25 [facility]annCARDIAC [id number] 22:14:00 Test Item Value Reference Range Interpretation Comments BNP (test code = BNP) 59 [facility] Scrip-tannCARDIAC [id number] 22:14:00 Test Item Value Reference Range Interpretation Comments BNP (test code = BNP) 59 [facility] Scrip-tannCHEM [id number] 22:13:00 Test Item Value Reference Range Interpretation Comments ALT (test code = ALT) 21 See_Comment [Auto mated message] The system which ge nerated this result transmit cruz reference range : <=65. The reference range was not used to interpr et this result as gee l/abnormal. [facility]2017-06-12 22:13:00 Test Item Value Reference Range Interpretation Comments Albumin Lvl (test code = Albumin Lvl) 2.9 3.5-5.0 [facility]2017-06-12 22:13:00 Test Item Value Reference Range Interpretation Comments AST (test code = AST) 14 See_Comment [Auto mated message] The system which ge nerated this result transmit cruz reference range : <=37. The reference range was not used to interpr et this result as gee l/abnormal. [facility]2017-06-12 22:13:00 Test Item Value Reference Range Interpretation Comments Total Protein (test code = Total 7.8 6.4-8.4 Protein) [facility]2017-06-12 22:13:00 Test Item Value Reference Range Interpretation Comments Bili Total (test code = Bili Total) 0.2 0.2-1.3 [facility]2017-06-12 22:13:00 Test Item Value Reference Range Interpretation Comments Alk Phos (test code = Alk Phos) 133 39-136 [facility]2017-06-12 22:13:00 Test Item Value Reference Range Interpretation Comments Globulin (test code = Globulin) 4.9 2.7-4.2 [facility]2017-06-12 22:13:00 Test Item Value Reference Range Interpretation Comments B/C Ratio (test code = B/C Ratio) 6 6-25 [facility]2017-06-12 22:13:00 Test Item Value Reference Range Interpretation Comments A/G Ratio (test code = A/G Ratio) 0.6 0.7-1.6 [facility] CenterNfnbcavAXZOZXLMXZ8854-29-14 22:13:00 Test Item Value Reference Range Interpretation Comments MPV (test code = MPV) 10.7 7.4-10.4 [facility] CenterSibxgtzRVQNFOPVRT5933-83-96 22:13:00 Test Item Value Reference Range Interpretation Comments MCV (test code = MCV) 89.4 80.0-94.0 [place] [id number] 22:13:00 Test Item Value Reference Range Interpretation Comments MCHC (test code = MCHC) 33.0 32.0-36.0 [facility] CenterUhswtbyNOFQLQHGTG3746-53-20 22:13:00 Test Item Value Reference Range Interpretation Comments RDW (test code = RDW) 13.0 11.5-14.5 [facility] CenterSlmbdvwJYQTREQPRR5340-00-91 22:13:00 Test Item Value Reference Range Interpretation Comments MCH (test code = MCH) 29.5 pg 27.0-31.0 [facility] CenterLutcgwnCDLAAGDQNU9805-67-53 22:13:00 Test Item Value Reference Range Interpretation Comments Platelet (test code = Platelet) 231 133-450 [facility] CenterJdhmiyaLJUHXMRRPA9002-78-86 22:13:00 Test Item Value Reference Range Interpretation Comments Hgb (test code = Hgb) 12.0 14.0-18.0 [facility] CenterMvcfgzaKINNXIEVLU2104-76-71 22:13:00 Test Item Value Reference Range Interpretation Comments Hct (test code = Hct) 36.5 42.0-54.0 [facility] CenterHcwjgbnVXAVYKQWVM2362-26-37 22:13:00 Test Item Value Reference Range Interpretation Comments RBC (test code = RBC) 4.09 4.70-6.10 [facility] CenterFhflcnkILLCWZMYKJ0476-76-76 22:13:00 Test Item Value Reference Range Interpretation Comments WBC (test code = WBC) 8.0 3.7-10.4 [facility] CenterIuqvithJZRSMVBRTD0204-82-74 22:13:00 Test Item Value Reference Range Interpretation Comments Basophils # (test code 0.0 See_Comment [Aut omated message] The = Basophils #) system which generated this result tra nsmitted reference range : <=0.2. The reference r jillian was not used to int erpret this result as normal/abnormal . [facility] CenterAkqrgqaSRFTXAKGSI0730-95-44 22:13:00 Test Item Value Reference Range Interpretation Comments Lymphocytes # (test code = Lymphocytes 1.5 1.0-5.5 #) [facility] CenterBfukkxdKLBHHQBXXK4496-94-63 22:13:00 Test Item Value Reference Range Interpretation Comments Segs-Bands # (test code = Segs-Bands #) 5.8 1.5-8.1 [facility] CenterRgvwfikRDHJKCTHRQ9672-86-88 22:13:00 Test Item Value Reference Range Interpretation Comments Eosinophils # (test code 0.2 See_Comment [A utomated message] The = Eosinophils #) system whic h generated this result tra nsmitted reference range : <=0.5. The reference r jillian was not used to int erpret this result as normal/abnormal . [facility] CenterIwquyqfHILRLJYUGN5605-33-80 22:13:00 Test Item Value Reference Range Interpretation Comments Monocytes # (test code 0.4 See_Comment [Aut omated message] The = Monocytes #) system which generated this result tra nsmitted reference range : <=0.8. The reference r jillian was not used to int erpret this result as normal/abnormal . [facility] CenterQxotlfqRNVSRXZJYK5583-11-61 22:13:00 Test Item Value Reference Range Interpretation Comments Basophils (test code = 0.5 See_Comment [Aut omated message] The Basophils) system which ge nerated this result tra nsmitted reference range : <=1.0. The reference r jillian was not used to int erpret this result as normal/abnormal . [facility] CenterOetfqyxXVFBJETZPG0824-37-20 22:13:00 Test Item Value Reference Range Interpretation Comments Eosinophils (test code = 2.8 See_Comment [A utomated message] The Eosinophils) system which ge nerated this result tra nsmitted reference range : <=4.0. The reference r jillian was not used to int erpret this result as normal/abnormal . [facility] CenterEfmoozpSEWWBFJCGW5397-66-54 22:13:00 Test Item Value Reference Range Interpretation Comments Lymphocytes (test code = Lymphocytes) 19.0 20.0-40.0 [facility] CenterKxskkoaOINITWFCDO8665-54-15 22:13:00 Test Item Value Reference Range Interpretation Comments Monocytes (test code = Monocytes) 5.6 2.0-12.0 [facility] CenterQpzanjgXBNZMJQTDB5212-17-50 22:13:00 Test Item Value Reference Range Interpretation Comments Segs (test code = Segs) 72.1 45.0-75.0 [facility]2017-06-12 22:13:00 Test Item Value Reference Range Interpretation Comments UA Spec Grav (test code = UA Spec Grav) 1.014 [facility]2017-06-12 22:13:00 Test Item Value Reference Range Interpretation Comments UA Urobilinogen (test code = UA <=1.0 mg/dL 0.1-1.0 Urobilinogen) [facility]2017-06-12 22:13:00 Test Item Value Reference Range Interpretation Comments UA Bili (test code = Negative *NA*(03/10/17 UA Bili) 5:13 PM) [facility] AND [id number] 22:13:00 Test Item Value Reference Range Interpretation Comments UA Ketones (test code = UA Negative mg/dL Ketones) [facility] AND [id number] 22:13:00 Test Item Value Reference Range Interpretation Comments UA Glucose (test code = UA Glucose) 50 mg/dL [facility] AND [id number] 22:13:00 Test Item Value Reference Range Interpretation Comments UA Blood (test code = Small *ABN*(03/10/17 UA Blood) 5:13 PM) [facility] AND [id number] 22:13:00 Test Item Value Reference Range Interpretation Comments UA Color (test code = Light Yellow UA Color) *NA*(03/10/17 5:13 PM) [facility] AND [id number] 22:13:00 Test Item Value Reference Range Interpretation Comments UA Mucus (test code = UA Mucus) Few /LPF [facility] AND [id number] 22:13:00 Test Item Value Reference Range Interpretation Comments UA RBC (test code = 27 See_Comment [Automa cruz message] The UA RBC) system which ge nerated this result transmit cruz reference range : <=2. The reference range was not used to interpr et this result as gee l/abnormal. [facility] AND [id number] 22:13:00 Test Item Value Reference Range Interpretation Comments UA Hyal Cast (test 1 See_Comment [Automat ed message] The code = UA Hyal Cast) system which generated this result transmit cruz reference range : <=2. The reference range was not used to interpr et this result as gee l/abnormal. [facility] AND [id number] 22:13:00 Test Item Value Reference Range Interpretation Comments UA Turbidity (test code = Clear (03/10/17 5:13 UA Turbidity) PM) [facility] AND [id number] 22:13:00 Test Item Value Reference Range Interpretation Comments UA Protein (test code = UA >=300 mg/dL Protein) [facility] AND [id number] 22:13:00 Test Item Value Reference Range Interpretation Comments UA pH (test code = UA pH) 6.0 5.0-8.0 [facility] AND [id number] 22:13:00 Test Item Value Reference Range Interpretation Comments UA Nitrite (test code Negative (03/10/17 5:13 = UA Nitrite) PM) [facility] AND [id number] 22:13:00 Test Item Value Reference Range Interpretation Comments UA Leuk Est (test code Trace *ABN*(03/10/17 = UA Leuk Est) 5:13 PM) [facility] AND [id number] 22:13:00 Test Item Value Reference Range Interpretation Comments UA Sq Epi (test code = UA Sq Occasional /LPF Epi) [facility] AND [id number] 22:13:00 Test Item Value Reference Range Interpretation Comments UA WBC (test code = 22 See_Comment [Automa cruz message] The UA WBC) system which ge nerated this result transmit cruz reference range : <=5. The reference range was not used to interpr et this result as gee l/abnormal. [facility]2017-06-12 22:13:00 Test Item Value Reference Range Interpretation Comments ALT (test code = ALT) 21 See_Comment [Auto mated message] The system which ge nerated this result transmit cruz reference range : <=65. The reference range was not used to interpr et this result as gee l/abnormal. [facility]2017-06-12 22:13:00 Test Item Value Reference Range Interpretation Comments Albumin Lvl (test code = Albumin Lvl) 2.9 3.5-5.0 [facility]2017-06-12 22:13:00 Test Item Value Reference Range Interpretation Comments AST (test code = AST) 14 See_Comment [Auto mated message] The system which ge nerated this result transmit cruz reference range : <=37. The reference range was not used to interpr et this result as gee l/abnormal. [facility]2017-06-12 22:13:00 Test Item Value Reference Range Interpretation Comments Total Protein (test code = Total 7.8 6.4-8.4 Protein) [facility]2017-06-12 22:13:00 Test Item Value Reference Range Interpretation Comments Bili Total (test code = Bili Total) 0.2 0.2-1.3 [facility]2017-06-12 22:13:00 Test Item Value Reference Range Interpretation Comments Alk Phos (test code = Alk Phos) 133 39-136 [facility]2017-06-12 22:13:00 Test Item Value Reference Range Interpretation Comments Globulin (test code = Globulin) 4.9 2.7-4.2 [facility]2017-06-12 22:13:00 Test Item Value Reference Range Interpretation Comments B/C Ratio (test code = B/C Ratio) 6 6-25 [facility]2017-06-12 22:13:00 Test Item Value Reference Range Interpretation Comments A/G Ratio (test code = A/G Ratio) 0.6 0.7-1.6 [facility] Cent[id number] 22:13:00 Test Item Value Reference Range Interpretation Comments MPV (test code = MPV) 10.7 7.4-10.4 [facility] Cent[id number] 22:13:00 Test Item Value Reference Range Interpretation Comments MCV (test code = MCV) 89.4 80.0-94.0 [facility] Cent[id number] 22:13:00 Test Item Value Reference Range Interpretation Comments MCHC (test code = MCHC) 33.0 32.0-36.0 [facility] CenterToyqtplQKCWPQHQUW3082-13-23 22:13:00 Test Item Value Reference Range Interpretation Comments RDW (test code = RDW) 13.0 11.5-14.5 [facility] CenterFiebxscZWZTGZUYJN9669-06-35 22:13:00 Test Item Value Reference Range Interpretation Comments MCH (test code = MCH) 29.5 pg 27.0-31.0 [facility] C[id number] 22:13:00 Test Item Value Reference Range Interpretation Comments Platelet (test code = Platelet) 231 133-450 [facility] Cent[id number] 22:13:00 Test Item Value Reference Range Interpretation Comments Hgb (test code = Hgb) 12.0 14.0-18.0 [facility] CenterY[id number] 22:13:00 Test Item Value Reference Range Interpretation Comments Hct (test code = Hct) 36.5 42.0-54.0 [facility] Cent[id number] 22:13:00 Test Item Value Reference Range Interpretation Comments RBC (test code = RBC) 4.09 4.70-6.10 [facility] Cent[id number] 22:13:00 Test Item Value Reference Range Interpretation Comments WBC (test code = WBC) 8.0 3.7-10.4 [facility] Cent[id number] 22:13:00 Test Item Value Reference Range Interpretation Comments Basophils # (test code 0.0 See_Comment [Aut omated message] The = Basophils #) system which generated this result tra nsmitted reference range : <=0.2. The reference r jillian was not used to int erpret this result as normal/abnormal . [facility] Cent[id number] 22:13:00 Test Item Value Reference Range Interpretation Comments Lymphocytes # (test code = Lymphocytes 1.5 1.0-5.5 #) [facility] CenterNhxokztSLTWZXGSGF5179-94-60 22:13:00 Test Item Value Reference Range Interpretation Comments Segs-Bands # (test code = Segs-Bands #) 5.8 1.5-8.1 [facility] CenterVskmqayMWFFUVHDQC2781-95-12 22:13:00 Test Item Value Reference Range Interpretation Comments Eosinophils # (test code 0.2 See_Comment [A utomated message] The = Eosinophils #) system whic h generated this result tra nsmitted reference range : <=0.5. The reference r jillian was not used to int erpret this result as normal/abnormal . [facility] CenterDykeoavHQSTOIVEXC7942-51-08 22:13:00 Test Item Value Reference Range Interpretation Comments Monocytes # (test code 0.4 See_Comment [Aut omated message] The = Monocytes #) system which generated this result tra nsmitted reference range : <=0.8. The reference r jillian was not used to int erpret this result as normal/abnormal . [facility] CenterSkuywdwLTIJPXPOFW9033-61-05 22:13:00 Test Item Value Reference Range Interpretation Comments Basophils (test code = 0.5 See_Comment [Aut omated message] The Basophils) system which ge nerated this result tra nsmitted reference range : <=1.0. The reference r jillian was not used to int erpret this result as normal/abnormal . [facility] [id number] 22:13:00 Test Item Value Reference Range Interpretation Comments Eosinophils (test code = 2.8 See_Comment [A utomated message] The Eosinophils) system which ge nerated this result tra nsmitted reference range : <=4.0. The reference r jillian was not used to int erpret this result as normal/abnormal . [facility] Cent[id number] 22:13:00 Test Item Value Reference Range Interpretation Comments Lymphocytes (test code = Lymphocytes) 19.0 20.0-40.0 [facility] CenterEyjhucuDELXRAMOUE7135-07-11 22:13:00 Test Item Value Reference Range Interpretation Comments Monocytes (test code = Monocytes) 5.6 2.0-12.0 [facility] CenterPzqvoyqWGGQTQNLKS1609-01-83 22:13:00 Test Item Value Reference Range Interpretation Comments Segs (test code = Segs) 72.1 45.0-75.0 [facility]2017-06-12 22:13:00 Test Item Value Reference Range Interpretation Comments UA Spec Grav (test code = UA Spec Grav) 1.014 [facility]2017-06-12 22:13:00 Test Item Value Reference Range Interpretation Comments UA Urobilinogen (test code = UA <=1.0 mg/dL 0.1-1.0 Urobilinogen) [facility] AND [id number] 22:13:00 Test Item Value Reference Range Interpretation Comments UA Bili (test code = Negative *NA*(03/10/17 UA Bili) 5:13 PM) [facility]2017-06-12 22:13:00 Test Item Value Reference Range Interpretation Comments UA Ketones (test code = UA Negative mg/dL Ketones) [facility] AND [id number] 22:13:00 Test Item Value Reference Range Interpretation Comments UA Glucose (test code = UA Glucose) 50 mg/dL [facility]2017-06-12 22:13:00 Test Item Value Reference Range Interpretation Comments UA Blood (test code = Small *ABN*(03/10/17 UA Blood) 5:13 PM) [facility] AND [id number] 22:13:00 Test Item Value Reference Range Interpretation Comments UA Color (test code = Light Yellow UA Color) *NA*(03/10/17 5:13 PM) [facility] AND [id number] 22:13:00 Test Item Value Reference Range Interpretation Comments UA Mucus (test code = UA Mucus) Few /LPF [facility] AND [id number] 22:13:00 Test Item Value Reference Range Interpretation Comments UA RBC (test code = 27 See_Comment [Automa cruz message] The UA RBC) system which ge nerated this result transmit cruz reference range : <=2. The reference range was not used to interpr et this result as gee l/abnormal. [facility] AND [id number] 22:13:00 Test Item Value Reference Range Interpretation Comments UA Hyal Cast (test 1 See_Comment [Automat ed message] The code = UA Hyal Cast) system which generated this result transmit cruz reference range : <=2. The reference range was not used to interpr et this result as gee l/abnormal. [facility] AND [id number] 22:13:00 Test Item Value Reference Range Interpretation Comments UA Turbidity (test code = Clear (03/10/17 5:13 UA Turbidity) PM) [facility] AND [id number] 22:13:00 Test Item Value Reference Range Interpretation Comments UA Protein (test code = UA >=300 mg/dL Protein) [facility] AND [id number] 22:13:00 Test Item Value Reference Range Interpretation Comments UA pH (test code = UA pH) 6.0 5.0-8.0 [facility] AND [id number] 22:13:00 Test Item Value Reference Range Interpretation Comments UA Nitrite (test code Negative (03/10/17 5:13 = UA Nitrite) PM) [facility] AND [id number] 22:13:00 Test Item Value Reference Range Interpretation Comments UA Leuk Est (test code Trace *ABN*(03/10/17 = UA Leuk Est) 5:13 PM) [facility] AND [id number] 22:13:00 Test Item Value Reference Range Interpretation Comments UA Sq Epi (test code = UA Sq Occasional /LPF Epi) [facility] AND [id number] 22:13:00 Test Item Value Reference Range Interpretation Comments UA WBC (test code = 22 See_Comment [Automa cruz message] The UA WBC) system which ge nerated this result transmit cruz reference range : <=5. The reference range was not used to interpr et this result as gee l/abnormal. [facility]2014-02-28 09:12:00 Test Item Value Reference Range Interpretation Comments BUN (test code = BUN) 21 7-22 [facility]2014-02-28 09:12:00 Test Item Value Reference Range Interpretation Comments Creatinine Lvl (test code = Creatinine 2.3 0.5-1.4 Lvl) [facility]2014-02-28 09:12:00 Test Item Value Reference Range Interpretation Comments Glucose Lvl (test code = Glucose Lvl) 128 70-99 [facility]2014-02-28 09:12:00 Test Item Value Reference Range Interpretation Comments Chloride Lvl (test code = Chloride Lvl) 111 95-109 [facility]2014-02-28 09:12:00 Test Item Value Reference Range Interpretation Comments CO2 (test code = CO2) 25 24-32 [facility]2014-02-28 09:12:00 Test Item Value Reference Range Interpretation Comments AGAP (test code = AGAP) 10.8 10.0-20.0 [facility]2014-02-28 09:12:00 Test Item Value Reference Range Interpretation Comments Potassium Lvl (test code = Potassium 3.8 3.5-5.1 Lvl) [facility]2014-02-28 09:12:00 Test Item Value Reference Range Interpretation Comments Sodium Lvl (test code = Sodium Lvl) 143 135-145 [facility]2014-02-28 09:12:00 Test Item Value Reference Range Interpretation Comments Calcium Lvl (test code = Calcium Lvl) 8.4 8.5-10.5 [facility]2014-02-28 09:12:00 Test Item Value Reference Range Interpretation Comments eGFR (test code = eGFR) 32 [facility]2014-02-28 09:12:00 Test Item Value Reference Range Interpretation Comments Magnesium Lvl (test code = Magnesium 2.1 1.8-2.4 Lvl) [id number]:12:00 Test Item Value Reference Range Interpretation Comments RBC X 10x6 (test code = RBC X 10x6) 4.66 4.70-6.10 [facility] CenterIbvybufGMCTIOCHPX7938-36-39 09:12:00 Test Item Value Reference Range Interpretation Comments Hct (test code = Hct) 42.3 42.0-54.0 [facility] CenterLufuqonBEIVOPIOUS5659-99-30 09:12:00 Test Item Value Reference Range Interpretation Comments MCH (test code = MCH) 30.0 pg 27.0-31.0 [facility] CenterDfycotxORIJJRKHEP1390-63-45 09:12:00 Test Item Value Reference Range Interpretation Comments MCV (test code = MCV) 90.8 80.0-94.0 [facility] CenterQqrbajbDKWWUSGQWS7435-70-88 09:12:00 Test Item Value Reference Range Interpretation Comments Hgb (test code = Hgb) 14.0 14.0-18.0 [facility] CenterFdgoxrlGAQJOLHWQA4718-26-04 09:12:00 Test Item Value Reference Range Interpretation Comments RDW (test code = RDW) 15.2 11.5-14.5 [facility] [id number] 09:12:00 Test Item Value Reference Range Interpretation Comments MCHC (test code = MCHC) 33.0 32.0-36.0 [facility] Cent[id number] 09:12:00 Test Item Value Reference Range Interpretation Comments MPV (test code = MPV) 9.5 7.4-10.4 [facility] CenterTyygcaiODIOURCLTM5217-32-27 09:12:00 Test Item Value Reference Range Interpretation Comments Platelet (test code = Platelet) 231 133-450 [facility] CenterCathfhiLFBGPETUAP5489-31-92 09:12:00 Test Item Value Reference Range Interpretation Comments WBC X 10x3 (test code = WBC X 10x3) 11.8 3.7-10.4 [facility]2014-02-28 09:12:00 Test Item Value Reference Range Interpretation Comments BUN (test code = BUN) 21 7-22 [facility]2014-02-28 09:12:00 Test Item Value Reference Range Interpretation Comments Creatinine Lvl (test code = Creatinine 2.3 0.5-1.4 Lvl) [facility]2014-02-28 09:12:00 Test Item Value Reference Range Interpretation Comments Glucose Lvl (test code = Glucose Lvl) 128 70-99 [facility]2014-02-28 09:12:00 Test Item Value Reference Range Interpretation Comments Chloride Lvl (test code = Chloride Lvl) 111 95-109 [facility]2014-02-28 09:12:00 Test Item Value Reference Range Interpretation Comments CO2 (test code = CO2) 25 24-32 [facility]2014-02-28 09:12:00 Test Item Value Reference Range Interpretation Comments AGAP (test code = AGAP) 10.8 10.0-20.0 [facility]2014-02-28 09:12:00 Test Item Value Reference Range Interpretation Comments Potassium Lvl (test code = Potassium 3.8 3.5-5.1 Lvl) [facility]2014-02-28 09:12:00 Test Item Value Reference Range Interpretation Comments Sodium Lvl (test code = Sodium Lvl) 143 135-145 [facility]2014-02-28 09:12:00 Test Item Value Reference Range Interpretation Comments Calcium Lvl (test code = Calcium Lvl) 8.4 8.5-10.5 [facility]2014-02-28 09:12:00 Test Item Value Reference Range Interpretation Comments eGFR (test code = eGFR) 32 [facility]2014-02-28 09:12:00 Test Item Value Reference Range Interpretation Comments Magnesium Lvl (test code = Magnesium 2.1 1.8-2.4 Lvl) [facility] CenterXinkjyyCROCUUIKCT7396-45-10 09:12:00 Test Item Value Reference Range Interpretation Comments RBC X 10x6 (test code = RBC X 10x6) 4.66 4.70-6.10 [facility] CenterTqpsyxfKVLJMKDPAG9847-17-70 09:12:00 Test Item Value Reference Range Interpretation Comments Hct (test code = Hct) 42.3 42.0-54.0 [facility] CenterFzqrevlDSUVGOTYXP9545-76-18 09:12:00 Test Item Value Reference Range Interpretation Comments MCH (test code = MCH) 30.0 pg 27.0-31.0 [facility] CenterWgwxnmkANVAALLRWS9150-92-50 09:12:00 Test Item Value Reference Range Interpretation Comments MCV (test code = MCV) 90.8 80.0-94.0 [facility] CenterMlmztevQRIGXWQEDN2388-79-31 09:12:00 Test Item Value Reference Range Interpretation Comments Hgb (test code = Hgb) 14.0 14.0-18.0 [facility] CenterCuvzaavKAGLKKNUZE4165-51-35 09:12:00 Test Item Value Reference Range Interpretation Comments RDW (test code = RDW) 15.2 11.5-14.5 [facility] CenterDdnyoxmJYBENVYSGN9864-92-05 09:12:00 Test Item Value Reference Range Interpretation Comments MCHC (test code = MCHC) 33.0 32.0-36.0 [facility] CenterVnxtmyeVJCMFWCKEP9723-18-40 09:12:00 Test Item Value Reference Range Interpretation Comments MPV (test code = MPV) 9.5 7.4-10.4 [facility] CenterHaxzbuoXBKHNXPPVP7938-91-15 09:12:00 Test Item Value Reference Range Interpretation Comments Platelet (test code = Platelet) 231 133-450 [facility] CenterVsegdqtYAFYQYNTIU4468-37-24 09:12:00 Test Item Value Reference Range Interpretation Comments WBC X 10x3 (test code = WBC X 10x3) 11.8 3.7-10.4 [facility]2014-02-27 08:27:00 Test Item Value Reference Range Interpretation Comments Magnesium Lvl (test code = Magnesium 1.8 1.8-2.4 Lvl) [facility]2014-02-27 08:27:00 Test Item Value Reference Range Interpretation Comments eGFR (test code = eGFR) 38 [facility]2014-02-27 08:27:00 Test Item Value Reference Range Interpretation Comments AGAP (test code = AGAP) 11.6 10.0-20.0 [facility]2014-02-27 08:27:00 Test Item Value Reference Range Interpretation Comments Calcium Lvl (test code = Calcium Lvl) 8.5 8.5-10.5 [facility]2014-02-27 08:27:00 Test Item Value Reference Range Interpretation Comments Potassium Lvl (test code = Potassium 3.6 3.5-5.1 Lvl) [facility]2014-02-27 08:27:00 Test Item Value Reference Range Interpretation Comments Sodium Lvl (test code = Sodium Lvl) 142 135-145 [facility]2014-02-27 08:27:00 Test Item Value Reference Range Interpretation Comments Chloride Lvl (test code = Chloride Lvl) 111 95-109 [facility]2014-02-27 08:27:00 Test Item Value Reference Range Interpretation Comments CO2 (test code = CO2) 23 24-32 [place] [id number] 08:27:00 Test Item Value Reference Range Interpretation Comments Creatinine Lvl (test code = Creatinine 2.0 0.5-1.4 Lvl) [place] [id number] 08:27:00 Test Item Value Reference Range Interpretation Comments BUN (test code = BUN) 17 7-22 [facility]2014-02-27 08:27:00 Test Item Value Reference Range Interpretation Comments Glucose Lvl (test code = Glucose Lvl) 125 70-99 [facility] CenterKusxqerLAVAXOEKDX6402-74-25 08:27:00 Test Item Value Reference Range Interpretation Comments Hgb (test code = Hgb) 13.9 14.0-18.0 [facility] CenterXjoxkxyZSGKJNIYLC4321-63-48 08:27:00 Test Item Value Reference Range Interpretation Comments WBC X 10x3 (test code = WBC X 10x3) 12.2 3.7-10.4 [facility] CenterAipjhsyRNRVXWHOPW8029-97-10 08:27:00 Test Item Value Reference Range Interpretation Comments Hct (test code = Hct) 41.8 42.0-54.0 [place] [id number] 08:27:00 Test Item Value Reference Range Interpretation Comments MCV (test code = MCV) 90.7 80.0-94.0 [facility] CenterGazerraCBPTKGPZOV5181-77-59 08:27:00 Test Item Value Reference Range Interpretation Comments MCH (test code = MCH) 30.2 pg 27.0-31.0 [facility] CenterRbwmkwlRHGJHZPGBW0067-82-81 08:27:00 Test Item Value Reference Range Interpretation Comments MCHC (test code = MCHC) 33.3 32.0-36.0 [facility] CenterFwhtzgfJJGDTODZKW9460-02-53 08:27:00 Test Item Value Reference Range Interpretation Comments RBC X 10x6 (test code = RBC X 10x6) 4.61 4.70-6.10 [facility] CenterAcnpvynSKCTQZPWTS4386-68-10 08:27:00 Test Item Value Reference Range Interpretation Comments Platelet (test code = Platelet) 209 133-450 [facility] CenterYyrapdsQDEEXYTOPV2704-97-29 08:27:00 Test Item Value Reference Range Interpretation Comments RDW (test code = RDW) 15.4 11.5-14.5 [facility] CenterGmfizztYRYJQYQIQQ3269-86-95 08:27:00 Test Item Value Reference Range Interpretation Comments MPV (test code = MPV) 9.7 7.4-10.4 [facility]2014-02-27 08:27:00 Test Item Value Reference Range Interpretation Comments Magnesium Lvl (test code = Magnesium 1.8 1.8-2.4 Lvl) [facility]2014-02-27 08:27:00 Test Item Value Reference Range Interpretation Comments eGFR (test code = eGFR) 38 [facility]2014-02-27 08:27:00 Test Item Value Reference Range Interpretation Comments AGAP (test code = AGAP) 11.6 10.0-20.0 [facility]2014-02-27 08:27:00 Test Item Value Reference Range Interpretation Comments Calcium Lvl (test code = Calcium Lvl) 8.5 8.5-10.5 [facility]2014-02-27 08:27:00 Test Item Value Reference Range Interpretation Comments Potassium Lvl (test code = Potassium 3.6 3.5-5.1 Lvl) [facility]2014-02-27 08:27:00 Test Item Value Reference Range Interpretation Comments Sodium Lvl (test code = Sodium Lvl) 142 135-145 [facility]2014-02-27 08:27:00 Test Item Value Reference Range Interpretation Comments Chloride Lvl (test code = Chloride Lvl) 111 95-109 [place] [id number] 08:27:00 Test Item Value Reference Range Interpretation Comments CO2 (test code = CO2) 23 24-32 [facility]2014-02-27 08:27:00 Test Item Value Reference Range Interpretation Comments Creatinine Lvl (test code = Creatinine 2.0 0.5-1.4 Lvl) [facility]2014-02-27 08:27:00 Test Item Value Reference Range Interpretation Comments BUN (test code = BUN) 17 7-22 [facility]2014-02-27 08:27:00 Test Item Value Reference Range Interpretation Comments Glucose Lvl (test code = Glucose Lvl) 125 70-99 [facility] CenterKatomovZLIWIXPNMX1505-28-80 08:27:00 Test Item Value Reference Range Interpretation Comments Hgb (test code = Hgb) 13.9 14.0-18.0 [facility] CenterZslbuflCZTGYZIAYB8293-29-03 08:27:00 Test Item Value Reference Range Interpretation Comments WBC X 10x3 (test code = WBC X 10x3) 12.2 3.7-10.4 [facility] CenterPhqqsswTZSDDGSPPG1073-32-10 08:27:00 Test Item Value Reference Range Interpretation Comments Hct (test code = Hct) 41.8 42.0-54.0 [facility] CenterCquhmnuSIBEZOZPSN5249-09-61 08:27:00 Test Item Value Reference Range Interpretation Comments MCV (test code = MCV) 90.7 80.0-94.0 [facility] CenterHofjpqbTGDOQLZGBA6202-35-72 08:27:00 Test Item Value Reference Range Interpretation Comments MCH (test code = MCH) 30.2 pg 27.0-31.0 [facility] CenterRwtwzvkJTPGNVCYOE4803-85-13 08:27:00 Test Item Value Reference Range Interpretation Comments MCHC (test code = MCHC) 33.3 32.0-36.0 [facility] CenterGsaikpwZWXSZHZOUM3372-88-03 08:27:00 Test Item Value Reference Range Interpretation Comments RBC X 10x6 (test code = RBC X 10x6) 4.61 4.70-6.10 [facility] CenterTdqpbpbRJSCSVUXVU9674-45-78 08:27:00 Test Item Value Reference Range Interpretation Comments Platelet (test code = Platelet) 209 133-450 [facility] CenterIxnyrixXGMHBFRGEC3116-91-89 08:27:00 Test Item Value Reference Range Interpretation Comments RDW (test code = RDW) 15.4 11.5-14.5 [facility] CenterMlhzxhkLGXRGLYJZA6101-66-92 08:27:00 Test Item Value Reference Range Interpretation Comments MPV (test code = MPV) 9.7 7.4-10.4 [facility]2014-02-26 18:49:00 Test Item Value Reference Range Interpretation Comments Calcium Lvl (test code = Calcium Lvl) 8.2 8.5-10.5 [facility]2014-02-26 18:49:00 Test Item Value Reference Range Interpretation Comments AGAP (test code = AGAP) 11.9 10.0-20.0 [facility]2014-02-26 18:49:00 Test Item Value Reference Range Interpretation Comments CO2 (test code = CO2) 23 24-32 [facility]2014-02-26 18:49:00 Test Item Value Reference Range Interpretation Comments eGFR (test code = eGFR) 41 [facility]2014-02-26 18:49:00 Test Item Value Reference Range Interpretation Comments Glucose Lvl (test code = Glucose Lvl) 129 70-99 [facility]2014-02-26 18:49:00 Test Item Value Reference Range Interpretation Comments BUN (test code = BUN) 17 7-22 [facility]2014-02-26 18:49:00 Test Item Value Reference Range Interpretation Comments Creatinine Lvl (test code = Creatinine 1.9 0.5-1.4 Lvl) [facility]2014-02-26 18:49:00 Test Item Value Reference Range Interpretation Comments Potassium Lvl (test code = Potassium 3.9 3.5-5.1 Lvl) [facility]2014-02-26 18:49:00 Test Item Value Reference Range Interpretation Comments Sodium Lvl (test code = Sodium Lvl) 142 135-145 [facility]2014-02-26 18:49:00 Test Item Value Reference Range Interpretation Comments Chloride Lvl (test code = Chloride Lvl) 111 95-109 [facility] CenterAsjrlvmZOBGTP9790-44-17 18:49:00 Test Item Value Reference Range Interpretation Comments VLDL (test code = VLDL) 25 [facility] CenterUvxyhdmFZYJPU8835-75-99 18:49:00 Test Item Value Reference Range Interpretation Comments LDL (Calculated) (test code = LDL 98 (Calculated)) [facility] CenterPqdyvsmZXSUGF7743-72-28 18:49:00 Test Item Value Reference Range Interpretation Comments HDL (test code = HDL) 54 [facility] CenterYkflbbqMKWUOS0497-61-51 18:49:00 Test Item Value Reference Range Interpretation Comments Chol (test code = Chol) 177 [facility] CenterNloffogGWJTJE7371-27-10 18:49:00 Test Item Value Reference Range Interpretation Comments Trig (test code = Trig) 126 [facility] CenterIkaplwyEYCLWA1872-35-59 18:49:00 Test Item Value Reference Range Interpretation Comments CHD Risk (test code = CHD Risk) 3.28 4.00-7.30 [facility]2014-02-26 18:49:00 Test Item Value Reference Range Interpretation Comments Calcium Lvl (test code = Calcium Lvl) 8.2 8.5-10.5 [facility]2014-02-26 18:49:00 Test Item Value Reference Range Interpretation Comments AGAP (test code = AGAP) 11.9 10.0-20.0 [facility]2014-02-26 18:49:00 Test Item Value Reference Range Interpretation Comments CO2 (test code = CO2) 23 24-32 [facility]2014-02-26 18:49:00 Test Item Value Reference Range Interpretation Comments eGFR (test code = eGFR) 41 [facility]2014-02-26 18:49:00 Test Item Value Reference Range Interpretation Comments Glucose Lvl (test code = Glucose Lvl) 129 70-99 [facility]2014-02-26 18:49:00 Test Item Value Reference Range Interpretation Comments BUN (test code = BUN) 17 7-22 [facility]2014-02-26 18:49:00 Test Item Value Reference Range Interpretation Comments Creatinine Lvl (test code = Creatinine 1.9 0.5-1.4 Lvl) [facility]2014-02-26 18:49:00 Test Item Value Reference Range Interpretation Comments Potassium Lvl (test code = Potassium 3.9 3.5-5.1 Lvl) [facility]2014-02-26 18:49:00 Test Item Value Reference Range Interpretation Comments Sodium Lvl (test code = Sodium Lvl) 142 135-145 [facility]2014-02-26 18:49:00 Test Item Value Reference Range Interpretation Comments Chloride Lvl (test code = Chloride Lvl) 111 95-109 [facility] HospitalEinakieNSMLYD4629-43-98 18:49:00 Test Item Value Reference Range Interpretation Comments VLDL (test code = VLDL) 25 [facility] CenterXovotpiRNOOOF9437-14-14 18:49:00 Test Item Value Reference Range Interpretation Comments LDL (Calculated) (test code = LDL 98 (Calculated)) [facility] HospitalUqgogltMJBMKM1692-04-45 18:49:00 Test Item Value Reference Range Interpretation Comments HDL (test code = HDL) 54 [facility] HospitalGtvujqeLFKOVY8711-04-46 18:49:00 Test Item Value Reference Range Interpretation Comments Chol (test code = Chol) 177 [facility] HospitalPjcwtqmMZDUYL2109-49-70 18:49:00 Test Item Value Reference Range Interpretation Comments Trig (test code = Trig) 126 [facility] HospitalAifbxnyURLXRN8230-98-80 18:49:00 Test Item Value Reference Range Interpretation Comments CHD Risk (test code = CHD Risk) 3.28 4.00-7.30 [facility] AND [id number] 10:05:14 Test Item Value Reference Range Interpretation Comments UA Leuk Est (test Negative (11/24/2013 code = UA Leuk Est) 04:05:14 [facility]/[place]) [facility] AND [id number] 10:05:14 Test Item Value Reference Range Interpretation Comments UA Nitrite (test code Negative (11/24/2013 = UA Nitrite) 04:05:14 [facility]/[place]) [facility] AND [id number] 10:05:14 Test Item Value Reference Range Interpretation Comments UA Blood (test code = Small *ABN*(11/24/2013 UA Blood) 04:05:14 [facility]) [facility] AND [id number] 10:05:14 Test Item Value Reference Range Interpretation Comments UA Ketones (test code = UA Negative mg/dL Ketones) [facility] AND [id number] 10:05:14 Test Item Value Reference Range Interpretation Comments UA Glucose (test code = UA Glucose) 30 mg/dL [facility] AND [id number] 10:05:14 Test Item Value Reference Range Interpretation Comments UA Bili (test code = Negative *NA*(11/24/2013 UA Bili) 04:05:14 [facility]) [facility] AND [id number] 10:05:14 Test Item Value Reference Range Interpretation Comments Micro? (test code = Performed *NA*(11/24/2013 Micro?) 04:05:14 [facility]) [facility] AND [id number] 10:05:14 Test Item Value Reference Range Interpretation Comments UA Mucus (test code = UA Mucus) Few /LPF [facility] AND [id number] 10:05:14 Test Item Value Reference Range Interpretation Comments UA RBC (test code = 1 See_Comment [Automa cruz message] The UA RBC) system which ge nerated this result transmit cruz reference range : <=2. The reference range was not used to interpr et this result as gee l/abnormal. [facility] [id number] 10:05:14 Test Item Value Reference Range Interpretation Comments UA Urobilinogen (test code = UA <=1.0 mg/dL 0.1-1.0 Urobilinogen) [facility] AND [id number] 10:05:14 Test Item Value Reference Range Interpretation Comments UA Turbidity (test code = Clear (11/24/2013 UA Turbidity) 04:05:14 [facility]/[place]) [facility] AND [id number] 10:05:14 Test Item Value Reference Range Interpretation Comments UA Protein (test code = UA >=300 mg/dL Protein) [facility] AND [id number] 10:05:14 Test Item Value Reference Range Interpretation Comments UA pH (test code = UA pH) 6.5 5.0-8.0 [facility] AND [id number] 10:05:14 Test Item Value Reference Range Interpretation Comments UA Spec Grav (test code = UA Spec Grav) 1.010 [facility] AND [id number] 10:05:14 Test Item Value Reference Range Interpretation Comments UA Color (test code = Light Yellow UA Color) *NA*(11/24/2013 04:05:14 [facility]/[place]) [facility] AND [id number] 10:05:14 Test Item Value Reference Range Interpretation Comments UA WBC (test code = 2 See_Comment [Automa cruz message] The UA WBC) system which ge nerated this result transmit cruz reference range : <=5. The reference range was not used to interpr et this result as gee l/abnormal. [facility] AND [id number] 10:05:14 Test Item Value Reference Range Interpretation Comments UA Sq Epi (test code = UA Sq Occasional /LPF Epi) [facility] AND [id number] 10:05:14 Test Item Value Reference Range Interpretation Comments Micro? (test code = Performed *NA*(11/24/2013 Micro?) 04:05:14 [facility]/[place]) [facility] AND [id number] 10:05:14 Test Item Value Reference Range Interpretation Comments UA Mucus (test code = UA Mucus) Few /LPF [facility] AND [id number] 10:05:14 Test Item Value Reference Range Interpretation Comments UA RBC (test code = 1 See_Comment [Automa cruz message] The UA RBC) system which ge nerated this result transmit cruz reference range : <=2. The reference range was not used to interpr et this result as gee l/abnormal. [facility] AND [id number] 10:05:14 Test Item Value Reference Range Interpretation Comments UA Urobilinogen (test code = UA <=1.0 mg/dL 0.1-1.0 Urobilinogen) [facility] [id number] 10:05:14 Test Item Value Reference Range Interpretation Comments UA Turbidity (test code = Clear (11/24/2013 UA Turbidity) 04:05:14 [facility] [id number] 10:05:14 Test Item Value Reference Range Interpretation Comments UA Protein (test code = UA >=300 mg/dL Protein) [facility] [id number] 10:05:14 Test Item Value Reference Range Interpretation Comments UA pH (test code = UA pH) 6.5 5.0-8.0 [facility] [id number] 10:05:14 Test Item Value Reference Range Interpretation Comments UA Spec Grav (test code = UA Spec Grav) 1.010 [facility] [id number] 10:05:14 Test Item Value Reference Range Interpretation Comments UA Color (test code = Light Yellow UA Color) *NA*(11/24/2013 04:05:14 [facility] [id number] 10:05:14 Test Item Value Reference Range Interpretation Comments UA WBC (test code = 2 See_Comment [Automa cruz message] The UA WBC) system which ge nerated this result transmit cruz reference range : <=5. The reference range was not used to interpr et this result as gee l/abnormal. [facility] [id number] 10:05:14 Test Item Value Reference Range Interpretation Comments UA Sq Epi (test code = UA Sq Occasional /LPF Epi) [facility] AND [id number] 10:05:14 Test Item Value Reference Range Interpretation Comments UA Leuk Est (test Negative (11/24/2013 code = UA Leuk Est) 04:05:14 [facility]) [facility] AND [id number] 10:05:14 Test Item Value Reference Range Interpretation Comments UA Nitrite (test code Negative (11/24/2013 = UA Nitrite) 04:05:14 [facility]) [facility] AND [id number] 10:05:14 Test Item Value Reference Range Interpretation Comments UA Blood (test code = Small *ABN*(11/24/2013 UA Blood) 04:05:14 [facility]) [facility] AND [id number] 10:05:14 Test Item Value Reference Range Interpretation Comments UA Ketones (test code = UA Negative mg/dL Ketones) [facility] AND [id number] 10:05:14 Test Item Value Reference Range Interpretation Comments UA Glucose (test code = UA Glucose) 30 mg/dL [facility] AND [id number] 10:05:14 Test Item Value Reference Range Interpretation Comments UA Bili (test code = Negative *NA*(11/24/2013 UA Bili) 04:05:14 [facility]2014-02-25 09:17:00 Test Item Value Reference Range Interpretation Comments Magnesium Lvl (test code = Magnesium 2.0 1.8-2.4 Lvl) [facility]2014-02-25 09:17:00 Test Item Value Reference Range Interpretation Comments Phosphorus (test code = Phosphorus) 2.5 2.5-4.5 [facility]2014-02-25 09:17:00 Test Item Value Reference Range Interpretation Comments Total Protein (test code = Total 7.3 6.4-8.4 Protein) [facility]2014-02-25 09:17:00 Test Item Value Reference Range Interpretation Comments Albumin Lvl (test code = Albumin Lvl) 2.7 3.5-5.0 [facility]2014-02-25 09:17:00 Test Item Value Reference Range Interpretation Comments ASPARTATE TRANSAMINASE 21 See_Comment [Aut omated message] (test code = ASPARTATE The s ystem which TRANSAMINASE) generated this result transmitted ref erence range: <=37. Th e reference range was not used to interpr et this result as normal/abnormal . [facility]2014-02-25 09:17:00 Test Item Value Reference Range Interpretation Comments Bili Total (test code = Bili Total) 0.6 0.2-1.3 [facility]2014-02-25 09:17:00 Test Item Value Reference Range Interpretation Comments Alk Phos (test code = Alk Phos) 108 39-136 [facility]2014-02-25 09:17:00 Test Item Value Reference Range Interpretation Comments ALANINE AMINOTRANSFERASE 20 See_Comment [A utomated message] (test code = ALANINE The sys tem which AMINOTRANSFERASE) generated this result transmitted ref erence range: <=65. Th e reference range was not used to int erpret this result as normal/abnormal . [facility]2014-02-25 09:17:00 Test Item Value Reference Range Interpretation Comments A/G Ratio (test code = A/G Ratio) 0.6 0.7-1.6 [place] [id number] 09:17:00 Test Item Value Reference Range Interpretation Comments Globulin (test code = Globulin) 4.6 2.0-4.0 [place] [id number] 09:17:00 Test Item Value Reference Range Interpretation Comments B/C Ratio (test code = B/C Ratio) 11 6-25 [facility] [id number] 09:17:00 Test Item Value Reference Range Interpretation Comments Basophils # (test code 0.0 See_Comment [Aut omated message] The = Basophils #) system which generated this result tra nsmitted reference range : <=0.2. The reference r jillian was not used to int erpret this result as normal/abnormal . [facility] [id number] 09:17:00 Test Item Value Reference Range Interpretation Comments Eosinophils # (test code 0.0 See_Comment [A utomated message] The = Eosinophils #) system whic h generated this result tra nsmitted reference range : <=0.5. The reference r jillian was not used to int erpret this result as normal/abnormal . [facility] [id number] 09:17:00 Test Item Value Reference Range Interpretation Comments Monocytes # (test code 0.4 See_Comment [Aut omated message] The = Monocytes #) system which generated this result tra nsmitted reference range : <=0.8. The reference r jillian was not used to int erpret this result as normal/abnormal . [facility] [id number] 09:17:00 Test Item Value Reference Range Interpretation Comments Lymphocytes (test code = Lymphocytes) 15.7 20.0-40.0 [facility] Cent[id number] 09:17:00 Test Item Value Reference Range Interpretation Comments Plt Morph (test code = Normal (11/23/2013 Plt Morph) 03:17:00 [facility] C[id number] 09:17:00 Test Item Value Reference Range Interpretation Comments Segs (test code = Segs) 76.6 45.0-75.0 [facility] Cent[id number] 09:17:00 Test Item Value Reference Range Interpretation Comments Lymphocytes # (test code = Lymphocytes 1.0 1.0-5.5 #) [facility] Cent[id number] 09:17:00 Test Item Value Reference Range Interpretation Comments Basophils (test code = 0.2 See_Comment [Aut omated message] The Basophils) system which ge nerated this result tra nsmitted reference range : <=1.0. The reference r jillian was not used to int erpret this result as normal/abnormal . [facility] CenterRvnqzvnLEEGKTWFIL9738-14-10 09:17:00 Test Item Value Reference Range Interpretation Comments Segs-Bands # (test code = Segs-Bands #) 4.7 1.5-8.1 [facility] [id number] 09:17:00 Test Item Value Reference Range Interpretation Comments RBC Morph (test code = Normal (11/23/2013 RBC Morph) 03:17:00 [facility] [id number] 09:17:00 Test Item Value Reference Range Interpretation Comments Eosinophils (test code = 0.7 See_Comment [A utomated message] The Eosinophils) system which ge nerated this result tra nsmitted reference range : <=4.0. The reference r jillian was not used to int erpret this result as normal/abnormal . [facility] C[id number] 09:17:00 Test Item Value Reference Range Interpretation Comments Monocytes (test code = Monocytes) 6.8 2.0-12.0 [facility] C[id number] 09:17:00 Test Item Value Reference Range Interpretation Comments PROTIME (test code = PROTIME) 13.4 s 12.0-14.7 [facility] [id number] 09:17:00 Test Item Value Reference Range Interpretation Comments INR (test code = INR) 1.03 0.85-1.17 [facility] [id number] 09:17:00 Test Item Value Reference Range Interpretation Comments MPV (test code = MPV) 9.9 7.4-10.4 [facility] C[id number] 09:17:00 Test Item Value Reference Range Interpretation Comments Platelet (test code = Platelet) 221 133-450 [facility] C[id number] 09:17:00 Test Item Value Reference Range Interpretation Comments MCHC (test code = MCHC) 32.7 32.0-36.0 [facility] C[id number] 09:17:00 Test Item Value Reference Range Interpretation Comments MCH (test code = MCH) 30.0 pg 27.0-31.0 [facility] C[id number] 09:17:00 Test Item Value Reference Range Interpretation Comments RDW (test code = RDW) 14.7 11.5-14.5 [facility] CenterXcdhhrsYHVJFVAJDK6427-15-07 09:17:00 Test Item Value Reference Range Interpretation Comments WBC X 10x3 (test code = WBC X 10x3) 6.1 3.7-10.4 [facility] C[id number] 09:17:00 Test Item Value Reference Range Interpretation Comments RBC X 10x6 (test code = RBC X 10x6) 4.88 4.70-6.10 [facility] C[id number] 09:17:00 Test Item Value Reference Range Interpretation Comments Hgb (test code = Hgb) 14.6 14.0-18.0 [facility] CenterGkpxpfeJUEHPQPFME1149-04-89 09:17:00 Test Item Value Reference Range Interpretation Comments MCV (test code = MCV) 91.6 80.0-94.0 [place] [id number] 09:17:00 Test Item Value Reference Range Interpretation Comments Hct (test code = Hct) 44.6 42.0-54.0 [place] [id number] 09:17:00 Test Item Value Reference Range Interpretation Comments Alk Phos (test code = Alk Phos) 108 39-136 [facility]2014-02-25 09:17:00 Test Item Value Reference Range Interpretation Comments ALANINE AMINOTRANSFERASE 20 See_Comment [A utomated message] (test code = ALANINE The sys tem which AMINOTRANSFERASE) generated this result transmitted ref erence range: <=65. Th e reference range was not used to int erpret this result as normal/abnormal . [facility]2014-02-25 09:17:00 Test Item Value Reference Range Interpretation Comments A/G Ratio (test code = A/G Ratio) 0.6 0.7-1.6 [place] [id number] 09:17:00 Test Item Value Reference Range Interpretation Comments Globulin (test code = Globulin) 4.6 2.0-4.0 [place] [id number] 09:17:00 Test Item Value Reference Range Interpretation Comments B/C Ratio (test code = B/C Ratio) 11 6-25 [facility] CenterNogaqaeMIFCPPLIXV0305-78-05 09:17:00 Test Item Value Reference Range Interpretation Comments Basophils # (test code 0.0 See_Comment [Aut omated message] The = Basophils #) system which generated this result tra nsmitted reference range : <=0.2. The reference r jillian was not used to int erpret this result as normal/abnormal . [facility] [id number] 09:17:00 Test Item Value Reference Range Interpretation Comments Eosinophils # (test code 0.0 See_Comment [A utomated message] The = Eosinophils #) system whic h generated this result tra nsmitted reference range : <=0.5. The reference r jillian was not used to int erpret this result as normal/abnormal . [facility] CenterMxnpqfyEDQDAYCRFG0509-07-48 09:17:00 Test Item Value Reference Range Interpretation Comments Monocytes # (test code 0.4 See_Comment [Aut omated message] The = Monocytes #) system which generated this result tra nsmitted reference range : <=0.8. The reference r jillian was not used to int erpret this result as normal/abnormal . [facility] CenterTdsquzwGZIFKUSVOZ1130-92-34 09:17:00 Test Item Value Reference Range Interpretation Comments Lymphocytes (test code = Lymphocytes) 15.7 20.0-40.0 [facility] CenterZurdyrbMJTHGUOCEV8054-06-87 09:17:00 Test Item Value Reference Range Interpretation Comments Plt Morph (test code = Normal (11/23/2013 Plt Morph) 03:17:00 [facility] CenterUghhtvlSBIRHGBOOF3327-08-54 09:17:00 Test Item Value Reference Range Interpretation Comments Segs (test code = Segs) 76.6 45.0-75.0 [facility] CenterRxbtpvwODHFKWDVFJ4213-64-84 09:17:00 Test Item Value Reference Range Interpretation Comments Lymphocytes # (test code = Lymphocytes 1.0 1.0-5.5 #) [facility] CenterCvkrytuJJLOWGWVYB3483-55-99 09:17:00 Test Item Value Reference Range Interpretation Comments Basophils (test code = 0.2 See_Comment [Aut omated message] The Basophils) system which ge nerated this result tra nsmitted reference range : <=1.0. The reference r jillian was not used to int erpret this result as normal/abnormal . [facility] CenterZjbavjuGNUFFKDTUU6011-65-44 09:17:00 Test Item Value Reference Range Interpretation Comments Segs-Bands # (test code = Segs-Bands #) 4.7 1.5-8.1 [facility] CenterVujxrooTCGQIRDYVU1381-14-55 09:17:00 Test Item Value Reference Range Interpretation Comments RBC Morph (test code = Normal (11/23/2013 RBC Morph) 03:17:00 [facility] CenterOfonegsIQWBYZSDXV3500-99-01 09:17:00 Test Item Value Reference Range Interpretation Comments Eosinophils (test code = 0.7 See_Comment [A utomated message] The Eosinophils) system which ge nerated this result tra nsmitted reference range : <=4.0. The reference r jillian was not used to int erpret this result as normal/abnormal . [facility] CenterZrjnetuUXBNPSWGFZ3330-54-68 09:17:00 Test Item Value Reference Range Interpretation Comments Monocytes (test code = Monocytes) 6.8 2.0-12.0 [facility] CenterOtppzkfLZTJHILEVF4973-99-59 09:17:00 Test Item Value Reference Range Interpretation Comments PROTIME (test code = PROTIME) 13.4 s 12.0-14.7 [facility] [id number] 09:17:00 Test Item Value Reference Range Interpretation Comments INR (test code = INR) 1.03 0.85-1.17 [facility] Cent[id number] 09:17:00 Test Item Value Reference Range Interpretation Comments MPV (test code = MPV) 9.9 7.4-10.4 [facility] CenterIqauwfkXEAYXENVIH2629-52-44 09:17:00 Test Item Value Reference Range Interpretation Comments Platelet (test code = Platelet) 221 133-450 [facility] Cent[id number] 09:17:00 Test Item Value Reference Range Interpretation Comments MCHC (test code = MCHC) 32.7 32.0-36.0 [facility] CenterBykrckwVHAIBXXWJI5279-82-49 09:17:00 Test Item Value Reference Range Interpretation Comments MCH (test code = MCH) 30.0 pg 27.0-31.0 [facility] CenterUuiztljXVIVCTMCII7280-93-71 09:17:00 Test Item Value Reference Range Interpretation Comments RDW (test code = RDW) 14.7 11.5-14.5 [facility] CenterWqhnkjzSNBESHZRTN6602-07-97 09:17:00 Test Item Value Reference Range Interpretation Comments WBC X 10x3 (test code = WBC X 10x3) 6.1 3.7-10.4 [facility] CenterSzbeiazWGMPLUEKUL5636-68-15 09:17:00 Test Item Value Reference Range Interpretation Comments RBC X 10x6 (test code = RBC X 10x6) 4.88 4.70-6.10 [facility] CenterBnmbuikJYJSHXUVMI2643-58-66 09:17:00 Test Item Value Reference Range Interpretation Comments Hgb (test code = Hgb) 14.6 14.0-18.0 [facility] CenterAbttrwhGOECTZSEEB6685-15-86 09:17:00 Test Item Value Reference Range Interpretation Comments MCV (test code = MCV) 91.6 80.0-94.0 [facility] CenterTishwcoEIIGYRYXSI6154-27-31 09:17:00 Test Item Value Reference Range Interpretation Comments Hct (test code = Hct) 44.6 42.0-54.0 [facility] [id number] 09:17:00 Test Item Value Reference Range Interpretation Comments Magnesium Lvl (test code = Magnesium 2.0 1.8-2.4 Lvl) [facility] [id number] 09:17:00 Test Item Value Reference Range Interpretation Comments Phosphorus (test code = Phosphorus) 2.5 2.5-4.5 [facility] [id number] 09:17:00 Test Item Value Reference Range Interpretation Comments Total Protein (test code = Total 7.3 6.4-8.4 Protein) [facility] [id number] 09:17:00 Test Item Value Reference Range Interpretation Comments Albumin Lvl (test code = Albumin Lvl) 2.7 3.5-5.0 [facility] [id number] 09:17:00 Test Item Value Reference Range Interpretation Comments ASPARTATE TRANSAMINASE 21 See_Comment [Aut omated message] (test code = ASPARTATE The s ystem which TRANSAMINASE) generated this result transmitted ref erence range: <=37. Th e reference range was not used to interpr et this result as normal/abnormal . [facility] CodeRyte [id number] 09:17:00 Test Item Value Reference Range Interpretation Comments Bili Total (test code = Bili Total) 0.6 0.2-1.3 [facility] TheGrid [id number] 04:30:00 Test Item Value Reference Range Interpretation Comments Total CK (test code = Total CK) 155 12-191 [facility] BionomicsCARMonths Of MeAC [id number] 04:30:00 Test Item Value Reference Range Interpretation Comments CK MB (test code = CK MB) 0.9 0.5-3.6 [facility] HospitalTicketflyAC [id number] 04:30:00 Test Item Value Reference Range Interpretation Comments Troponin-I (test code no gt See_Comment [Auto mated message] The = Troponin-I) system which g enerated this result transmit cruz reference range : <=0.40. The reference r jillian was not used to interpr et this result as gee l/abnormal. [facility] [employer] [id number] 04:30:00 Test Item Value Reference Range Interpretation Comments Total CK (test code = Total CK) 155 12-191 [facility] HermannCARDIAC [id number] 04:30:00 Test Item Value Reference Range Interpretation Comments CK MB (test code = CK MB) 0.9 0.5-3.6 [facility] HermannCARDIAC [id number] 04:30:00 Test Item Value Reference Range Interpretation Comments Troponin-I (test code no gt See_Comment [Auto mated message] The = Troponin-I) system which g enerated this result transmit cruz reference range : <=0.40. The reference r jillian was not used to interpr et this result as gee l/abnormal. [facility] Scrip-tannCARDIAC [id number] 22:30:00 Test Item Value Reference Range Interpretation Comments Total CK (test code = Total CK) 142 191 [facility] HermannCARDIAC [id number] 22:30:00 Test Item Value Reference Range Interpretation Comments CK MB (test code = CK MB) 0.8 0.5-3.6 [facility]annCARDI[facility] [id number] 22:30:00 Test Item Value Reference Range Interpretation Comments Troponin-I (test code no gt See_Comment [Auto mated message] The = Troponin-I) system which g enerated this result transmit cruz reference range : <=0.40. The reference r jillian was not used to interpr et this result as gee l/abnormal. [facility] Scrip-tannCARDIAC [id number] 22:30:00 Test Item Value Reference Range Interpretation Comments Total CK (test code = Total CK) 142 12-191 [facility] HermannCARDIAC [id number] 22:30:00 Test Item Value Reference Range Interpretation Comments CK MB (test code = CK MB) 0.8 0.5-3.6 [facility]ann[facility] [id number] 22:30:00 Test Item Value Reference Range Interpretation Comments Troponin-I (test code no gt See_Comment [Auto mated message] The = Troponin-I) system which g enerated this result transmit cruz reference range : <=0.40. The reference r jillian was not used to interpr et this result as gee l/abnormal. [facility]-tannDRUG [id number] 22:00:00 Test Item Value Reference Range Interpretation Comments U Amph Scr (test code Negative *NA*(11/22/2013 = U Amph Scr) 16:00:00 [facility]ann[facility] [id number] 22:00:00 Test Item Value Reference Range Interpretation Comments U Cocaine Scr (test Positive code = U Cocaine Scr) *ABN*(11/22/2013 16:00:00 [facility]ann[facility] [id number] 22:00:00 Test Item Value Reference Range Interpretation Comments U Opiate Scr (test Negative code = U Opiate Scr) *NA*(11/22/2013 16:00:00 [facility]ann[facility] [id number] 22:00:00 Test Item Value Reference Range Interpretation Comments U Cannab Scr (test Negative code = U Cannab Scr) *NA*(11/22/2013 16:00:00 [facility]annDR[facility] [id number] 22:00:00 Test Item Value Reference Range Interpretation Comments U Benzodia Scr (test Negative code = U Benzodia Scr) *NA*(11/22/2013 16:00:00 [facility]ann[facility] [id number] 22:00:00 Test Item Value Reference Range Interpretation Comments U Romy Scr (test code Negative *NA*(11/22/2013 = U Romy Scr) 16:00:00 [facility]) [facility]annDR[facility] [id number] 22:00:00 Test Item Value Reference Range Interpretation Comments UDS Note (test code = See Note 8(11/22/2013 UDS Note) 16:00:00 [facility]ann[facility] [id number] 22:00:00 Test Item Value Reference Range Interpretation Comments U Phencyc Scr (test Negative code = U Phencyc Scr) *NA*(11/22/2013 16:00:00 [facility] [id number] 22:00:00 Test Item Value Reference Range Interpretation Comments UA Urobilinogen (test code = UA <=1.0 mg/dL 0.1-1.0 Urobilinogen) [facility] [id number] 22:00:00 Test Item Value Reference Range Interpretation Comments UA Sq Epi (test code = UA Sq Epi) None Seen [facility] [id number] 22:00:00 Test Item Value Reference Range Interpretation Comments UA Bili (test code = Negative *NA*(11/22/2013 UA Bili) 16:00:00 [facility]) [facility] [id number] 22:00:00 Test Item Value Reference Range Interpretation Comments UA Blood (test code = Small *ABN*(11/22/2013 UA Blood) 16:00:00 [facility]) [facility] [id number] 22:00:00 Test Item Value Reference Range Interpretation Comments UA Nitrite (test code Negative (11/22/2013 = UA Nitrite) 16:00:00 [facility]) [facility] [id number] 22:00:00 Test Item Value Reference Range Interpretation Comments UA WBC (test code = 1 See_Comment [Automa cruz message] The UA WBC) system which ge nerated this result transmit cruz reference range : <=5. The reference range was not used to interpr et this result as gee l/abnormal. [facility] [id number] 22:00:00 Test Item Value Reference Range Interpretation Comments UA Leuk Est (test Negative (11/22/2013 code = UA Leuk Est) 16:00:00 [facility]) [facility] [id number] 22:00:00 Test Item Value Reference Range Interpretation Comments UA RBC (test code = 1 See_Comment [Automa cruz message] The UA RBC) system which ge nerated this result transmit cruz reference range : <=2. The reference range was not used to interpr et this result as gee l/abnormal. [facility] [id number] 22:00:00 Test Item Value Reference Range Interpretation Comments UA Mucus (test code = UA Mucus) Few /LPF [facility] [id number] 22:00:00 Test Item Value Reference Range Interpretation Comments UA Bacteria (test code = UA Occasional /HPF Bacteria) [facility] [id number] 22:00:00 Test Item Value Reference Range Interpretation Comments UA Turbidity (test code = Clear (11/22/2013 UA Turbidity) 16:00:00 [facility]) [facility] [id number] 22:00:00 Test Item Value Reference Range Interpretation Comments UA Color (test code = Light Yellow UA Color) *NA*(11/22/2013 16:00:00 [facility] AND [id number] 22:00:00 Test Item Value Reference Range Interpretation Comments UA Spec Grav (test code = UA Spec Grav) 1.009 [facility] AND [id number] 22:00:00 Test Item Value Reference Range Interpretation Comments UA Glucose (test code = UA Glucose) 70 mg/dL [facility] AND [id number] 22:00:00 Test Item Value Reference Range Interpretation Comments UA Protein (test code = UA >=300 mg/dL Protein) [facility] AND [id number] 22:00:00 Test Item Value Reference Range Interpretation Comments UA pH (test code = UA pH) 6.0 5.0-8.0 [facility] AND [id number] 22:00:00 Test Item Value Reference Range Interpretation Comments UA Ketones (test code = UA Negative mg/dL Ketones) [facility] [id number] 22:00:00 Test Item Value Reference Range Interpretation Comments U Amph Scr (test code Negative *NA*(11/22/2013 = U Amph Scr) 16:00:00 [facility] [id number] 22:00:00 Test Item Value Reference Range Interpretation Comments U Cocaine Scr (test Positive code = U Cocaine Scr) *ABN*(11/22/2013 16:00:00 [facility] [id number] 22:00:00 Test Item Value Reference Range Interpretation Comments U Opiate Scr (test Negative code = U Opiate Scr) *NA*(11/22/2013 16:00:00 [facility] [id number] 22:00:00 Test Item Value Reference Range Interpretation Comments U Cannab Scr (test Negative code = U Cannab Scr) *NA*(11/22/2013 16:00:00 [facility] [id number] 22:00:00 Test Item Value Reference Range Interpretation Comments U Benzodia Scr (test Negative code = U Benzodia Scr) *NA*(11/22/2013 16:00:00 [facility] [id number] 22:00:00 Test Item Value Reference Range Interpretation Comments U Romy Scr (test code Negative *NA*(11/22/2013 = U Romy Scr) 16:00:00 [facility] [id number] 22:00:00 Test Item Value Reference Range Interpretation Comments UDS Note (test code = See Note 8(11/22/2013 UDS Note) 16:00:00 [facility] [id number] 22:00:00 Test Item Value Reference Range Interpretation Comments U Phencyc Scr (test Negative code = U Phencyc Scr) *NA*(11/22/2013 16:00:00 [facility] [id number] 22:00:00 Test Item Value Reference Range Interpretation Comments UA Urobilinogen (test code = UA <=1.0 mg/dL 0.1-1.0 Urobilinogen) [facility] [id number] 22:00:00 Test Item Value Reference Range Interpretation Comments UA Sq Epi (test code = UA Sq Epi) None Seen [facility] [id number] 22:00:00 Test Item Value Reference Range Interpretation Comments UA Bili (test code = Negative *NA*(11/22/2013 UA Bili) 16:00:00 [facility]/[place]) [facility] [id number] 22:00:00 Test Item Value Reference Range Interpretation Comments UA Blood (test code = Small *ABN*(11/22/2013 UA Blood) 16:00:00 [facility] [id number] 22:00:00 Test Item Value Reference Range Interpretation Comments UA Nitrite (test code Negative (11/22/2013 = UA Nitrite) 16:00:00 [facility]) [facility] [id number] 22:00:00 Test Item Value Reference Range Interpretation Comments UA WBC (test code = 1 See_Comment [Automa cruz message] The UA WBC) system which ge nerated this result transmit cruz reference range : <=5. The reference range was not used to interpr et this result as gee l/abnormal. [facility] [id number] 22:00:00 Test Item Value Reference Range Interpretation Comments UA Leuk Est (test Negative (11/22/2013 code = UA Leuk Est) 16:00:00 [facility]/[place]) [facility] AND [id number] 22:00:00 Test Item Value Reference Range Interpretation Comments UA RBC (test code = 1 See_Comment [Automa cruz message] The UA RBC) system which ge nerated this result transmit cruz reference range : <=2. The reference range was not used to interpr et this result as gee l/abnormal. [facility] AND [id number] 22:00:00 Test Item Value Reference Range Interpretation Comments UA Mucus (test code = UA Mucus) Few /LPF [facility] AND [id number] 22:00:00 Test Item Value Reference Range Interpretation Comments UA Bacteria (test code = UA Occasional /HPF Bacteria) [facility] AND [id number] 22:00:00 Test Item Value Reference Range Interpretation Comments UA Turbidity (test code = Clear (11/22/2013 UA Turbidity) 16:00:00 [facility]/[place]) [facility] AND [id number] 22:00:00 Test Item Value Reference Range Interpretation Comments UA Color (test code = Light Yellow UA Color) *NA*(11/22/2013 16:00:00 [facility]/[place]) [facility] AND [id number] 22:00:00 Test Item Value Reference Range Interpretation Comments UA Spec Grav (test code = UA Spec Grav) 1.009 [facility] AND [id number] 22:00:00 Test Item Value Reference Range Interpretation Comments UA Glucose (test code = UA Glucose) 70 mg/dL [facility] AND [id number] 22:00:00 Test Item Value Reference Range Interpretation Comments UA Protein (test code = UA >=300 mg/dL Protein) [facility] AND [id number] 22:00:00 Test Item Value Reference Range Interpretation Comments UA pH (test code = UA pH) 6.0 5.0-8.0 [facility] AND [id number] 22:00:00 Test Item Value Reference Range Interpretation Comments UA Ketones (test code = UA Negative mg/dL Ketones) [facility] [id number] 18:46:00 Test Item Value Reference Range Interpretation Comments Total CK (test code = Total CK) 85 12-191 [facility] [id number] 18:46:00 Test Item Value Reference Range Interpretation Comments CK MB (test code = CK MB) no gt 0.5-3.6 [facility] [id number] 18:46:00 Test Item Value Reference Range Interpretation Comments Troponin-I (test code no gt See_Comment [Auto mated message] The = Troponin-I) system which g enerated this result transmit cruz reference range : <=0.40. The reference r jillian was not used to interpr et this result as gee l/abnormal. [facility] [id number] 18:46:00 Test Item Value Reference Range Interpretation Comments CK-MB INDEX (test no gt See_Comment [Automate d message] The code = CK-MB INDEX) system w [facility] generated this result transmit cruz reference range : <=2.5. The reference range was not used to interpr et this result as gee l/abnormal. [id number] 18:46:00 Test Item Value Reference Range Interpretation Comments PROTIME (test code = PROTIME) 12.9 s 12.0-14.7 [facility] [id number] 18:46:00 Test Item Value Reference Range Interpretation Comments INR (test code = INR) 0.98 0.85-1.17 [facility] [id number] 18:46:00 Test Item Value Reference Range Interpretation Comments aPTT (test code = aPTT) 28.6 s 22.9-35.8 [id number] 18:46:00 Test Item Value Reference Range Interpretation Comments Eosinophils # (test code 0.1 See_Comment [A utomated message] The = Eosinophils #) system diego h generated this result tra nsmitted reference range : <=0.5. The reference r jillian was not used to int erpret this result as normal/abnormal . [id number] 18:46:00 Test Item Value Reference Range Interpretation Comments Monocytes # (test code 0.7 See_Comment [Aut omated message] The = Monocytes #) system which generated this result tra nsmitted reference range : <=0.8. The reference r jillian was not used to int erpret this result as normal/abnormal . [facility] [id number] 18:46:00 Test Item Value Reference Range Interpretation Comments Eosinophils (test code = 1.3 See_Comment [A utomated message] The Eosinophils) system which ge nerated this result tra nsmitted reference range : <=4.0. The reference r jillian was not used to int erpret this result as normal/abnormal . [facility] [id number] 18:46:00 Test Item Value Reference Range Interpretation Comments Monocytes (test code = Monocytes) 7.6 2.0-12.0 [facility] [id number] 18:46:00 Test Item Value Reference Range Interpretation Comments Lymphocytes (test code = Lymphocytes) 25.0 20.0-40.0 [facility] [id number] 18:46:00 Test Item Value Reference Range Interpretation Comments Basophils (test code = 0.4 See_Comment [Aut omated message] The Basophils) system which ge nerated this result tra nsmitted reference range : <=1.0. The reference r jillian was not used to int erpret this result as normal/abnormal . [facility] [id number] 18:46:00 Test Item Value Reference Range Interpretation Comments Lymphocytes # (test code = Lymphocytes 2.3 1.0-5.5 #) [facility] [id number] 18:46:00 Test Item Value Reference Range Interpretation Comments Segs-Bands # (test code = Segs-Bands #) 6.2 1.5-8.1 [facility] [id number] 18:46:00 Test Item Value Reference Range Interpretation Comments Segs (test code = Segs) 65.7 45.0-75.0 [facility] [id number] 18:46:00 Test Item Value Reference Range Interpretation Comments Total CK (test code = Total CK) 85 12-191 [facility] [id number] 18:46:00 Test Item Value Reference Range Interpretation Comments CK MB (test code = CK MB) no gt 0.5-3.6 [facility] [id number] 18:46:00 Test Item Value Reference Range Interpretation Comments Troponin-I (test code no gt See_Comment [Auto mated message] The = Troponin-I) system which g enerated this result transmit cruz reference range : <=0.40. The reference r jillian was not used to interpr et this result as gee l/abnormal. [facility] [id number] 18:46:00 Test Item Value Reference Range Interpretation Comments CK-MB INDEX (test no gt See_Comment [Automate d message] The code = CK-MB INDEX) system w [facility] generated this result transmit cruz reference range : <=2.5. The reference range was not used to interpr et this result as gee l/abnormal. [facility] [id number] 18:46:00 Test Item Value Reference Range Interpretation Comments PROTIME (test code = PROTIME) 12.9 s 12.0-14.7 [facility] [id number] 18:46:00 Test Item Value Reference Range Interpretation Comments INR (test code = INR) 0.98 0.85-1.17 [facility]SyyxbxkINTBPKPLHN6897-14-73 18:46:00 Test Item Value Reference Range Interpretation Comments aPTT (test code = aPTT) 28.6 s 22.9-35.8 [id number] 18:46:00 Test Item Value Reference Range Interpretation Comments Eosinophils # (test code 0.1 See_Comment [A utomated message] The = Eosinophils #) system ic h generated this result tra nsmitted reference range : <=0.5. The reference r jillian was not used to int erpret this result as normal/abnormal . [facility] [id number] 18:46:00 Test Item Value Reference Range Interpretation Comments Monocytes # (test code 0.7 See_Comment [Aut omated message] The = Monocytes #) system which generated this result tra nsmitted reference range : <=0.8. The reference r jillian was not used to int erpret this result as normal/abnormal . [facility] [id number] 18:46:00 Test Item Value Reference Range Interpretation Comments Eosinophils (test code = 1.3 See_Comment [A utomated message] The Eosinophils) system which ge nerated this result tra nsmitted reference range : <=4.0. The reference r jillian was not used to int erpret this result as normal/abnormal . [facility] CenterPxlxasfJFRKOBRRXB8507-03-15 18:46:00 Test Item Value Reference Range Interpretation Comments Monocytes (test code = Monocytes) 7.6 2.0-12.0 [facility] C[id number] 18:46:00 Test Item Value Reference Range Interpretation Comments Lymphocytes (test code = Lymphocytes) 25.0 20.0-40.0 [facility] [id number] 18:46:00 Test Item Value Reference Range Interpretation Comments Basophils (test code = 0.4 See_Comment [Aut omated message] The Basophils) system which ge nerated this result tra nsmitted reference range : <=1.0. The reference r jillian was not used to int erpret this result as normal/abnormal . [facility] C[id number] 18:46:00 Test Item Value Reference Range Interpretation Comments Lymphocytes # (test code = Lymphocytes 2.3 1.0-5.5 #) [facility] CenterKimgugiQOSWRRRAEG3846-17-27 18:46:00 Test Item Value Reference Range Interpretation Comments Segs-Bands # (test code = Segs-Bands #) 6.2 1.5-8.1 [facility] CenterSlgfbqrHRRRNWTWJU0426-25-36 18:46:00 Test Item Value Reference Range Interpretation Comments Segs (test code = Segs) 65.7 45.0-75.0 [facility]UmwqmdsLRUEZRBRS8240-57-63 12:00:00 Test Item Value Reference Range Interpretation Comments Calcium Lvl (test code = Calcium Lvl) 7.7 8.5-10.5 L [facility] HospitalDxcrgovPRAMSJTCU5221-83-61 12:00:00 Test Item Value Reference Range Interpretation Comments Potassium Lvl (test code = Potassium 4.0 3.5-5.1 N Lvl) [facility] HospitalIfbbfeuNQNXNNCTY6156-57-39 12:00:00 Test Item Value Reference Range Interpretation Comments Sodium Lvl (test code = Sodium Lvl) 140 135-145 N [facility] HospitalBmyhyltGXUUQCYFM9146-60-01 12:00:00 Test Item Value Reference Range Interpretation Comments CO2 (test code = CO2) 23 24-32 L [facility] HospitalBwkozhwATMHKFZGZ8086-42-94 12:00:00 Test Item Value Reference Range Interpretation Comments Chloride Lvl (test code = Chloride Lvl) 102 95-109 N [facility] HospitalKwuvsaxFAKYKCFGT8890-71-55 12:00:00 Test Item Value Reference Range Interpretation Comments AGAP (test code = AGAP) 19.0 10.0-20.0 N [facility] HospitalVsziymrAEOJFERMI2442-08-94 12:00:00 Test Item Value Reference Range Interpretation Comments Glucose Lvl (test code = Glucose Lvl) 124 70-99 H [facility] HospitalDpjzwvoICYNIFYTF4898-67-48 12:00:00 Test Item Value Reference Range Interpretation Comments BUN (test code = BUN) 25 7-22 H [facility] HospitalYsbhdpqQFJHQNMFG2422-75-62 12:00:00 Test Item Value Reference Range Interpretation Comments Creatinine Lvl (test code = Creatinine 2.2 0.5-1.4 H Lvl) [facility] HospitalRrccwbpEFWTIADAV6316-70-46 12:00:00 Test Item Value Reference Range Interpretation Comments Calcium Lvl (test code = Calcium Lvl) 7.7 8.5-10.5 L [facility] HospitalElniehnJNZQXNZAO6973-95-80 12:00:00 Test Item Value Reference Range Interpretation Comments Potassium Lvl (test code = Potassium 4.0 3.5-5.1 N Lvl) [facility] HospitalQnvmucmWZYIOOHEG5136-75-65 12:00:00 Test Item Value Reference Range Interpretation Comments Sodium Lvl (test code = Sodium Lvl) 140 135-145 N [facility] HospitalMvqifanSCMJVQRLO3253-62-72 12:00:00 Test Item Value Reference Range Interpretation Comments CO2 (test code = CO2) 23 24-32 L [facility] HospitalPapqlbqBFUTZISFO5551-80-53 12:00:00 Test Item Value Reference Range Interpretation Comments Chloride Lvl (test code = Chloride Lvl) 102 95-109 N [facility] HospitalCzzifxmQTWAQXJRP5962-92-23 12:00:00 Test Item Value Reference Range Interpretation Comments AGAP (test code = AGAP) 19.0 10.0-20.0 N [facility] HospitalFnlgvysYJFDZWLVH0940-44-15 12:00:00 Test Item Value Reference Range Interpretation Comments Glucose Lvl (test code = Glucose Lvl) 124 70-99 H [facility] HospitalQqwyomwFKJHKPNVD7403-30-18 12:00:00 Test Item Value Reference Range Interpretation Comments BUN (test code = BUN) 25 7-22 H [facility] HospitalPasuceuMUMZHUHDB7101-39-23 12:00:00 Test Item Value Reference Range Interpretation Comments Creatinine Lvl (test code = Creatinine 2.2 0.5-1.4 H Lvl) [facility] HospitalZvantunDOBNYOCTB1702-60-39 22:17:00 Test Item Value Reference Range Interpretation Comments Calcium Lvl (test code = Calcium Lvl) 7.9 8.5-10.5 L [facility] HospitalLznzjskIGDRLITIJ0884-18-49 22:17:00 Test Item Value Reference Range Interpretation Comments AGAP (test code = AGAP) 18.5 10.0-20.0 N [facility] HospitalAyzvhyiTTILVUJDN1096-58-56 22:17:00 Test Item Value Reference Range Interpretation Comments CO2 (test code = CO2) 21 24-32 L [facility] HospitalNvhdnfmZCNKQOMTO4618-32-85 22:17:00 Test Item Value Reference Range Interpretation Comments Glucose Lvl (test code = Glucose Lvl) 77 70-99 N [facility] HospitalDnlbdqqWFRUQFZOL5523-96-38 22:17:00 Test Item Value Reference Range Interpretation Comments BUN (test code = BUN) 24 7-22 H [facility] HospitalVbzkxidNQELLNPHR8579-23-20 22:17:00 Test Item Value Reference Range Interpretation Comments Creatinine Lvl (test code = Creatinine 1.8 0.5-1.4 H Lvl) [facility] HospitalJymjrotEIGFGGQRB7463-46-54 22:17:00 Test Item Value Reference Range Interpretation Comments Sodium Lvl (test code = Sodium Lvl) 140 135-145 N [facility] HospitalGciqoooWYWFZVAHE1961-13-70 22:17:00 Test Item Value Reference Range Interpretation Comments Potassium Lvl (test code = Potassium 4.5 3.5-5.1 N Lvl) [facility] HospitalZxenqmoLXEGCDHFF7107-58-05 22:17:00 Test Item Value Reference Range Interpretation Comments Chloride Lvl (test code = Chloride Lvl) 105 95-109 N [facility] HospitalUjseeawVRUSUATBQ9406-84-36 22:17:00 Test Item Value Reference Range Interpretation Comments Calcium Lvl (test code = Calcium Lvl) 7.9 8.5-10.5 L [facility] HospitalDryveniSKYWPXFNA2862-88-99 22:17:00 Test Item Value Reference Range Interpretation Comments AGAP (test code = AGAP) 18.5 10.0-20.0 N [facility] HospitalPpjxxiwYIDBETRRF2073-09-18 22:17:00 Test Item Value Reference Range Interpretation Comments CO2 (test code = CO2) 21 24-32 L [facility] HospitalJjkmweqMRZMHCUUS7296-40-93 22:17:00 Test Item Value Reference Range Interpretation Comments Glucose Lvl (test code = Glucose Lvl) 77 70-99 N [facility] HospitalPcstmbcYQQQCETQV8945-32-59 22:17:00 Test Item Value Reference Range Interpretation Comments BUN (test code = BUN) 24 7-22 H [facility] HospitalDxxbysePVRSDZXCX8674-02-20 22:17:00 Test Item Value Reference Range Interpretation Comments Creatinine Lvl (test code = Creatinine 1.8 0.5-1.4 H Lvl) [facility] HospitalPrhacnhWGSRXOZYB2070-23-72 22:17:00 Test Item Value Reference Range Interpretation Comments Sodium Lvl (test code = Sodium Lvl) 140 135-145 N [facility] HospitalRfnpuhpJEXCUKFKE1928-97-16 22:17:00 Test Item Value Reference Range Interpretation Comments Potassium Lvl (test code = Potassium 4.5 3.5-5.1 N Lvl) [facility] HospitalMpwqkklTIIFGAGLN2280-97-83 22:17:00 Test Item Value Reference Range Interpretation Comments Chloride Lvl (test code = Chloride Lvl) 105 95-109 N [facility] HospitalAcovcaoVSUQUJCVW3333-29-37 19:20:00 Test Item Value Reference Range Interpretation Comments Creatinine Lvl (test code = Creatinine 1.8 0.5-1.4 H Lvl) [facility] HospitalEgmdzdgBQLBZXKHX5749-69-08 19:20:00 Test Item Value Reference Range Interpretation Comments Potassium Lvl (test code = Potassium 4.0 3.5-5.1 N Lvl) [facility] HospitalTruugwrQDHWGSTPZ1887-70-48 19:20:00 Test Item Value Reference Range Interpretation Comments Sodium Lvl (test code = Sodium Lvl) 137 135-145 N [facility] HospitalKyjoipzNSFMALKKI1381-28-78 19:20:00 Test Item Value Reference Range Interpretation Comments BUN (test code = BUN) 25 7-22 H [facility] HospitalHqkltqpOBHQWUNDD3643-88-99 19:20:00 Test Item Value Reference Range Interpretation Comments Calcium Lvl (test code = Calcium Lvl) 8.7 8.5-10.5 N [facility] HospitalNrkeilgMMOUEJYLN0014-21-27 19:20:00 Test Item Value Reference Range Interpretation Comments CO2 (test code = CO2) 21 24-32 L [facility] HospitalWrploqbTWJJDEEJP8404-69-75 19:20:00 Test Item Value Reference Range Interpretation Comments Chloride Lvl (test code = Chloride Lvl) 104 95-109 N [facility] HospitalJsyvrrdAWDOZUUBO0950-32-38 19:20:00 Test Item Value Reference Range Interpretation Comments AGAP (test code = AGAP) 16.0 10.0-20.0 N [facility] HospitalJojhozxERJVOOYSG1384-85-30 19:20:00 Test Item Value Reference Range Interpretation Comments Glucose Lvl (test code = Glucose Lvl) 86 70-99 N [facility] HospitalBtadbqfROCLRIAHG7568-29-88 19:20:00 Test Item Value Reference Range Interpretation Comments Creatinine Lvl (test code = Creatinine 1.8 0.5-1.4 H Lvl) [facility] HospitalQzedwjbHZUMXZEZE7788-66-13 19:20:00 Test Item Value Reference Range Interpretation Comments Potassium Lvl (test code = Potassium 4.0 3.5-5.1 N Lvl) [facility] HospitalYbnfmyrLGXLACSIR3462-45-64 19:20:00 Test Item Value Reference Range Interpretation Comments Sodium Lvl (test code = Sodium Lvl) 137 135-145 N [facility] HospitalUkwdtkaGMPNJXPEO8007-97-43 19:20:00 Test Item Value Reference Range Interpretation Comments BUN (test code = BUN) 25 7-22 H [facility] HospitalCfxmwrbJNLOJJMEZ6510-21-14 19:20:00 Test Item Value Reference Range Interpretation Comments Calcium Lvl (test code = Calcium Lvl) 8.7 8.5-10.5 N [facility] HospitalAkunvavIHLRDSZCH7036-89-16 19:20:00 Test Item Value Reference Range Interpretation Comments CO2 (test code = CO2) 21 24-32 L [facility] HospitalArbsfdzVTPKGCZFH3438-16-74 19:20:00 Test Item Value Reference Range Interpretation Comments Chloride Lvl (test code = Chloride Lvl) 104 95-109 N [facility] HospitalDigvephSZPQCIBFX8708-00-25 19:20:00 Test Item Value Reference Range Interpretation Comments AGAP (test code = AGAP) 16.0 10.0-20.0 N [facility] HospitalJrdakgqTFFXIFKEU3838-01-98 19:20:00 Test Item Value Reference Range Interpretation Comments Glucose Lvl (test code = Glucose Lvl) 86 70-99 N [facility] HospitalYfxcrxrMWUBXCAGX8366-62-93 18:40:00 Test Item Value Reference Range Interpretation Comments Uric Acid (test code = Uric Acid) 8.3 3.8-8.0 H [facility] HospitalUaprrvxVPLTRANLG9680-75-67 18:40:00 Test Item Value Reference Range Interpretation Comments B/C Ratio (test code = B/C Ratio) 14 6-25 N [facility] HospitalQmphqpxJPJDAUJZD2377-04-80 18:40:00 Test Item Value Reference Range Interpretation Comments Globulin (test code = Globulin) 5.3 2.0-4.0 H [facility] HospitalMulpekqOSBWYBREA2784-85-02 18:40:00 Test Item Value Reference Range Interpretation Comments A/G Ratio (test code = A/G Ratio) 0.6 0.7-1.6 L [facility] HospitalRkkctavVTBAAHTRB1385-15-15 18:40:00 Test Item Value Reference Range Interpretation Comments AST (test code = AST) 18 See_Comment N [Auto mated message] The system which ge nerated this result transmit cruz reference range : <=37. The reference range was not used to interpr et this result as gee l/abnormal. [facility] HospitalColgzxtADXLXMODG8054-33-17 18:40:00 Test Item Value Reference Range Interpretation Comments Bili Total (test code = Bili Total) 0.6 0.2-1.3 N [facility] HospitalMukwbjsXPIJLHDIU1166-77-72 18:40:00 Test Item Value Reference Range Interpretation Comments ALT (test code = ALT) 34 See_Comment N [Auto mated message] The system which ge nerated this result transmit cruz reference range : <=65. The reference range was not used to interpr et this result as gee l/abnormal. [facility] HospitalKaiywaiSXGBEEJDM7918-77-21 18:40:00 Test Item Value Reference Range Interpretation Comments Alk Phos (test code = Alk Phos) 97 39-136 N [facility] HospitalWrveczkBHJFAHTGI1884-60-04 18:40:00 Test Item Value Reference Range Interpretation Comments Total Protein (test code = Total 8.6 6.4-8.4 H Protein) [facility] HospitalPqcycqnEXBPEODOT1174-72-92 18:40:00 Test Item Value Reference Range Interpretation Comments Albumin Lvl (test code = Albumin Lvl) 3.3 3.5-5.0 L [facility] CenterNeszsdxZDJEOUKWHF3726-45-16 18:40:00 Test Item Value Reference Range Interpretation Comments MCV (test code = MCV) 95.9 80.0-94.0 H [facility] CenterVfolcqwDXZIOJTXLK3739-51-25 18:40:00 Test Item Value Reference Range Interpretation Comments Hgb (test code = Hgb) 16.3 14.0-18.0 N [facility] CenterGswbbivUOPGBPANYF1953-56-40 18:40:00 Test Item Value Reference Range Interpretation Comments Hct (test code = Hct) 48.3 42.0-54.0 N [facility] CenterIgfrwhtWURNJYGGAH4911-46-46 18:40:00 Test Item Value Reference Range Interpretation Comments RBC (test code = RBC) 5.03 4.70-6.10 N [facility] CenterUkhewgyYDCZSMFDWG3447-62-53 18:40:00 Test Item Value Reference Range Interpretation Comments WBC (test code = WBC) 12.3 3.7-10.4 H [facility] CenterRfztjamDUZEQRPUIT7501-19-60 18:40:00 Test Item Value Reference Range Interpretation Comments MCH (test code = MCH) 32.5 pg 27.0-31.0 H [facility] CenterLqzfgmpIRQBFNBDZC7727-86-46 18:40:00 Test Item Value Reference Range Interpretation Comments Platelet (test code = Platelet) 160 133-450 N [facility] CenterMbeqinkNCEUYCVNPQ9749-15-47 18:40:00 Test Item Value Reference Range Interpretation Comments RDW (test code = RDW) 12.9 11.5-14.5 N [facility] CenterTnwxhzqLOVZFUQUTU7745-40-79 18:40:00 Test Item Value Reference Range Interpretation Comments MPV (test code = MPV) 9.4 7.4-10.4 N [facility] CenterQytawpxQGPRKPMNIM4670-95-19 18:40:00 Test Item Value Reference Range Interpretation Comments MCHC (test code = MCHC) 33.8 32.0-36.0 N [facility] CenterDhwwwjbFGMXIDWSQC6998-78-54 18:40:00 Test Item Value Reference Range Interpretation Comments Monocytes # (test code 0.6 See_Comment N [Aut omated message] The = Monocytes #) system which generated this result tra nsmitted reference range : <=0.8. The reference r jillian was not used to int erpret this result as normal/abnormal . [facility] CenterKmmirtgEZHVFWOYTN0283-79-86 18:40:00 Test Item Value Reference Range Interpretation Comments Macrocyte (test code = 1+ *ABN*(01/08/2012 A Macrocyte) 13:40:00) [facility] CenterQisskhwVWAATDEUNN1430-86-39 18:40:00 Test Item Value Reference Range Interpretation Comments Eosinophils # (test code 0.0 See_Comment N [A utomated message] The = Eosinophils #) system [facility] h generated this result tra nsmitted reference range : <=0.5. The reference r jillian was not used to int erpret this result as normal/abnormal . [facility] CenterIzcbzhbOKAYXPARZE3742-36-46 18:40:00 Test Item Value Reference Range Interpretation Comments Lymphocytes # (test code = Lymphocytes 1.5 1.0-5.5 N #) [facility] CenterEcstwyrCKTQAHUFNQ2150-63-23 18:40:00 Test Item Value Reference Range Interpretation Comments Segs-Bands # (test code = Segs-Bands #) 10.1 1.5-8.1 H [facility] CenterGzvqgciZYVAVKCXXA4069-57-26 18:40:00 Test Item Value Reference Range Interpretation Comments Eosinophils (test code = 0.2 See_Comment N [A utomated message] The Eosinophils) system which ge nerated this result tra nsmitted reference range : <=4.0. The reference r jillian was not used to int erpret this result as normal/abnormal . [facility] CenterJqphxjnGMELXTVJAB1093-90-36 18:40:00 Test Item Value Reference Range Interpretation Comments Basophils (test code = 0.3 See_Comment N [Aut omated message] The Basophils) system which ge nerated this result tra nsmitted reference range : <=1.0. The reference r jillian was not used to int erpret this result as normal/abnormal . [facility] CenterUsnrdadHMMGWHNTNR5969-53-08 18:40:00 Test Item Value Reference Range Interpretation Comments Segs (test code = Segs) 82.4 45.0-75.0 H [facility] CenterDajzjqoSUGXSQIMFP0857-33-40 18:40:00 Test Item Value Reference Range Interpretation Comments Monocytes (test code = Monocytes) 4.6 2.0-12.0 N [facility] CenterBxucxcaGETNCKKMRY3460-13-63 18:40:00 Test Item Value Reference Range Interpretation Comments Lymphocytes (test code = Lymphocytes) 12.5 20.0-40.0 L [facility]ZbxrmjjJTQKYNJFMW0696-08-13 18:40:00 Test Item Value Reference Range Interpretation Comments Plt Morph (test code = Normal (01/08/2012 N Plt Morph) 13:40:00) [facility]BxypcuwZIEALYJKAB3794-29-75 18:40:00 Test Item Value Reference Range Interpretation Comments RBC Morph (test code = Normal (01/08/2012 N RBC Morph) 13:40:00) [facility] HospitalIqxkedlYSELIZSJEQ2302-14-46 18:40:00 Test Item Value Reference Range Interpretation Comments CRP, High Sensitivity (test code = CRP, 79.6 High Sensitivity) [facility] HospitalCvpkkbgEVRBCBGVP1441-53-98 18:40:00 Test Item Value Reference Range Interpretation Comments Uric Acid (test code = Uric Acid) 8.3 3.8-8.0 H [facility] HospitalRbblhwpZDLLXWNNR0201-98-18 18:40:00 Test Item Value Reference Range Interpretation Comments B/C Ratio (test code = B/C Ratio) 14 6-25 N [facility] HospitalYdjkthkMDIHJUUOI9538-51-32 18:40:00 Test Item Value Reference Range Interpretation Comments Globulin (test code = Globulin) 5.3 2.0-4.0 H [facility] HospitalBkbfxpdTKUAKMFQU4695-74-37 18:40:00 Test Item Value Reference Range Interpretation Comments A/G Ratio (test code = A/G Ratio) 0.6 0.7-1.6 L [facility] HospitalBdbcvxtUDCYUAYIQ2397-01-88 18:40:00 Test Item Value Reference Range Interpretation Comments AST (test code = AST) 18 See_Comment N [Auto mated message] The system which ge nerated this result transmit cruz reference range : <=37. The reference range was not used to interpr et this result as gee l/abnormal. [facility] HospitalYqqgnxtTJRHEGLKK2413-87-65 18:40:00 Test Item Value Reference Range Interpretation Comments Bili Total (test code = Bili Total) 0.6 0.2-1.3 N [facility] HospitalMzuxiwcCFGXJBQKJ6555-97-40 18:40:00 Test Item Value Reference Range Interpretation Comments ALT (test code = ALT) 34 See_Comment N [Auto mated message] The system which ge nerated this result transmit cruz reference range : <=65. The reference range was not used to interpr et this result as gee l/abnormal. [facility] HospitalDywyqhdVAXOBWBSP7527-32-91 18:40:00 Test Item Value Reference Range Interpretation Comments Alk Phos (test code = Alk Phos) 97 39-136 N [facility] HospitalFrvejajXVYQWMAFL6105-23-05 18:40:00 Test Item Value Reference Range Interpretation Comments Total Protein (test code = Total 8.6 6.4-8.4 H Protein) [facility] HospitalRzjztxwKSUBXDAJW3432-54-87 18:40:00 Test Item Value Reference Range Interpretation Comments Albumin Lvl (test code = Albumin Lvl) 3.3 3.5-5.0 L [facility] CenterNgqjjrpZCTZEYAGPG6646-27-42 18:40:00 Test Item Value Reference Range Interpretation Comments MCV (test code = MCV) 95.9 80.0-94.0 H [facility] CenterQaueyogTJRXMNNYYC9402-12-79 18:40:00 Test Item Value Reference Range Interpretation Comments Hgb (test code = Hgb) 16.3 14.0-18.0 N [facility] CenterZvzhmwdSVMFURQRCC0075-54-65 18:40:00 Test Item Value Reference Range Interpretation Comments Hct (test code = Hct) 48.3 42.0-54.0 N [facility] CenterWfjijasVIBVNFHCXU2202-74-74 18:40:00 Test Item Value Reference Range Interpretation Comments RBC (test code = RBC) 5.03 4.70-6.10 N [facility] CenterVwxsahgBAHGDZGXWB2192-19-47 18:40:00 Test Item Value Reference Range Interpretation Comments WBC (test code = WBC) 12.3 3.7-10.4 H [facility] CenterOxlmorrETZJWOOXXX8161-13-00 18:40:00 Test Item Value Reference Range Interpretation Comments MCH (test code = MCH) 32.5 pg 27.0-31.0 H [facility] CenterZhorczpFAAYSSCZPZ8667-85-12 18:40:00 Test Item Value Reference Range Interpretation Comments Platelet (test code = Platelet) 160 133-450 N [facility] CenterRdbwaspNJITTNKCOT0862-27-60 18:40:00 Test Item Value Reference Range Interpretation Comments RDW (test code = RDW) 12.9 11.5-14.5 N [facility] CenterUhwsleuDODCXWWJXK3007-43-60 18:40:00 Test Item Value Reference Range Interpretation Comments MPV (test code = MPV) 9.4 7.4-10.4 N [facility] CenterYohcqgsDQTAMIDHSZ2802-18-83 18:40:00 Test Item Value Reference Range Interpretation Comments MCHC (test code = MCHC) 33.8 32.0-36.0 N [facility] CenterMdnlsoyHFILOKQWZX1581-53-49 18:40:00 Test Item Value Reference Range Interpretation Comments Monocytes # (test code 0.6 See_Comment N [Aut omated message] The = Monocytes #) system which generated this result tra nsmitted reference range : <=0.8. The reference r jillian was not used to int erpret this result as normal/abnormal . [facility] CenterXrvkmisTETCWDXQET2454-53-29 18:40:00 Test Item Value Reference Range Interpretation Comments Macrocyte (test code = 1+ *ABN*(01/08/2012 A Macrocyte) 13:40:00) [facility] CenterSqcfuppPULVLKZFPE7274-35-15 18:40:00 Test Item Value Reference Range Interpretation Comments Eosinophils # (test code 0.0 See_Comment N [A utomated message] The = Eosinophils #) system whic h generated this result tra nsmitted reference range : <=0.5. The reference r jillian was not used to int erpret this result as normal/abnormal . [facility] CenterJpcchpnNAMNLJSDEC4749-07-77 18:40:00 Test Item Value Reference Range Interpretation Comments Lymphocytes # (test code = Lymphocytes 1.5 1.0-5.5 N #) [facility] CenterPsuswxgHQCMNFNIXG7630-93-96 18:40:00 Test Item Value Reference Range Interpretation Comments Segs-Bands # (test code = Segs-Bands #) 10.1 1.5-8.1 H [facility] CenterAfpvilxBESMETFOPK0199-75-72 18:40:00 Test Item Value Reference Range Interpretation Comments Eosinophils (test code = 0.2 See_Comment N [A utomated message] The Eosinophils) system which ge nerated this result tra nsmitted reference range : <=4.0. The reference r jillian was not used to int erpret this result as normal/abnormal . [facility] CenterFvbjngoNDEMALBBET0626-96-95 18:40:00 Test Item Value Reference Range Interpretation Comments Basophils (test code = 0.3 See_Comment N [Aut omated message] The Basophils) system which ge nerated this result tra nsmitted reference range : <=1.0. The reference r jillian was not used to int erpret this result as normal/abnormal . [facility] CenterEptjtjpMSZSNVXBFH5783-83-59 18:40:00 Test Item Value Reference Range Interpretation Comments Segs (test code = Segs) 82.4 45.0-75.0 H [facility]CaaobtqQTLXPTIJNY3338-14-07 18:40:00 Test Item Value Reference Range Interpretation Comments Monocytes (test code = Monocytes) 4.6 2.0-12.0 N [facility]XkjjhvxTIHYRQYHEM4413-80-28 18:40:00 Test Item Value Reference Range Interpretation Comments Lymphocytes (test code = Lymphocytes) 12.5 20.0-40.0 L [facility]PebpyjsDBKDKKLINU0727-77-16 18:40:00 Test Item Value Reference Range Interpretation Comments Plt Morph (test code = Normal (01/08/2012 N Plt Morph) 13:40:00) [facility] HospitalHooesgvXAWBNNERES1619-55-39 18:40:00 Test Item Value Reference Range Interpretation Comments RBC Morph (test code = Normal (01/08/2012 N RBC Morph) 13:40:00) [facility] HospitalZnmglxrPWMKYIQAII7796-73-10 18:40:00 Test Item Value Reference Range Interpretation Comments CRP, High Sensitivity (test code = CRP, 79.6 High Sensitivity) [facility]xsCkruskzuyaoc6151-79-28 18:32:00 Test Item Value Reference Range Interpretation Comments Culture: Blood (test code = Culture: Blood) [facility]KgmgbnxPbzuzuitinva1690-24-74 18:32:00 Test Item Value Reference Range Interpretation Comments Culture: Blood (test code = Culture: Blood) [facility]SombqlfQofxmfnlhmrd7096-90-02 18:25:00 Test Item Value Reference Range Interpretation Comments Culture: Blood (test code = Culture: Blood) [facility] TexasWsjiakgPvjgsbgxmfcs3133-62-20 18:25:00 Test Item Value Reference Range Interpretation Comments Culture: Blood (test code = Culture: Blood) [facility] HospitalThazhfeQNWMHGBRMV4937-38-00 17:30:00 Test Item Value Reference Range Interpretation Comments UA Urobilinogen (test code *NA*(01/08/2012 0.1-1.0 = UA Urobilinogen) 12:30:00) [facility] HospitalEbdkcvaMFAQQDXTXW8609-51-91 17:30:00 Test Item Value Reference Range Interpretation Comments UA WBC (test code = 1 See_Comment N [Automa cruz message] The UA WBC) system which ge nerated this result transmit cruz reference range : <=5. The reference range was not used to interpr et this result as gee l/abnormal. [facility] HospitalSvnaidbAJLFDNNWED9127-72-79 17:30:00 Test Item Value Reference Range Interpretation Comments UA RBC (test code = no gt See_Comment N [Automa cruz message] The UA RBC) system which ge nerated this result transmit cruz reference range : <=2. The reference range was not used to interpr et this result as gee l/abnormal. [facility]BnnqajsUEFCVRCIHT3880-62-51 17:30:00 Test Item Value Reference Range Interpretation Comments UA Mucus (test code = Few /LPF UA Mucus) *NA*(01/08/2012 12:30:00) [facility] HospitalSisrqlvMGVCXEITHJ5993-11-00 17:30:00 Test Item Value Reference Range Interpretation Comments UA Nitrite (test code Negative (01/08/2012 N = UA Nitrite) 12:30:00) [facility] HospitalFrgyashWEGXSSEFPV1352-85-41 17:30:00 Test Item Value Reference Range Interpretation Comments UA Leuk Est (test Negative (01/08/2012 N code = UA Leuk Est) 12:30:00) [facility] HospitalHdfcwkaROWHDVRFIT7641-69-65 17:30:00 Test Item Value Reference Range Interpretation Comments UA Ketones (test code Negative mg/dL = UA Ketones) *NA*(01/08/2012 12:30:00) [facility] HospitalWdnzygePSPAPVBKIM0176-66-57 17:30:00 Test Item Value Reference Range Interpretation Comments UA Bili (test code = Negative *NA*(01/08/2012 UA Bili) 12:30:00) [facility] HospitalLfmgukzIOMERRSXDZ8367-63-70 17:30:00 Test Item Value Reference Range Interpretation Comments UA Blood (test code = Negative (01/08/2012 N UA Blood) 12:30:00) [facility] HospitalOcfxcwkAKCIAFMJJL6176-30-30 17:30:00 Test Item Value Reference Range Interpretation Comments UA pH (test code = UA pH) 5.5 5.0-8.0 N [facility] HospitalIurqygfRMOJBIHEKP7536-98-12 17:30:00 Test Item Value Reference Range Interpretation Comments UA Protein (test code = 200 mg/dL A UA Protein) *ABN*(01/08/2012 12:30:00) [facility] HospitalCwbfopmVRABCOVPKU3287-32-43 17:30:00 Test Item Value Reference Range Interpretation Comments UA Glucose (test code Negative mg/dL = UA Glucose) *NA*(01/08/2012 12:30:00) [facility] HospitalPkawlcaCVCHDVYPXA2952-78-34 17:30:00 Test Item Value Reference Range Interpretation Comments UA Sq Epi (test code = UA Sq Epi) None [facility] ClinicSvokgbjKOGBGTNYQU7795-51-74 17:30:00 Test Item Value Reference Range Interpretation Comments UA Spec Grav (test code = UA Spec Grav) 1.012 N [facility] ClinicScctlhwVOOFXUFRWD6602-82-51 17:30:00 Test Item Value Reference Range Interpretation Comments UA Color (test code = Yellow *NA*(01/08/2012 UA Color) 12:30:00) [facility] HospitalCnfifpfRHJXBKLMVU7887-90-89 17:30:00 Test Item Value Reference Range Interpretation Comments UA Turbidity (test code = Clear (01/08/2012 N UA Turbidity) 12:30:00) [facility] HospitalTocyabqWsidxctoyygs9317-77-78 17:30:00 Test Item Value Reference Range Interpretation Comments Culture: Urine (test code = Culture: Urine) [facility] HospitalVejhmziTJTKWTBEFU1737-61-38 17:30:00 Test Item Value Reference Range Interpretation Comments UA Urobilinogen (test code *NA*(01/08/2012 0.1-1.0 = UA Urobilinogen) 12:30:00) [facility] HospitalStrvqemUHPWPFYZNU8070-55-25 17:30:00 Test Item Value Reference Range Interpretation Comments UA WBC (test code = 1 See_Comment N [Automa cruz message] The UA WBC) system which ge nerated this result transmit cruz reference range : <=5. The reference range was not used to interpr et this result as gee l/abnormal. [facility] HospitalBiuwytmBQGDNQGKLS5100-90-63 17:30:00 Test Item Value Reference Range Interpretation Comments UA RBC (test code = no gt See_Comment N [Automa cruz message] The UA RBC) system which ge nerated this result transmit cruz reference range : <=2. The reference range was not used to interpr et this result as gee l/abnormal. [facility] ClinicJpvamepLKMBQXQEIW6638-76-83 17:30:00 Test Item Value Reference Range Interpretation Comments UA Mucus (test code = Few /LPF UA Mucus) *NA*(01/08/2012 12:30:00) [facility] ClinicJxnzucqUYLEYLXPKX8927-85-84 17:30:00 Test Item Value Reference Range Interpretation Comments UA Nitrite (test code Negative (01/08/2012 N = UA Nitrite) 12:30:00) [facility] ClinicRhrcwvhEZNRLGBUBG0480-41-31 17:30:00 Test Item Value Reference Range Interpretation Comments UA Leuk Est (test Negative (01/08/2012 N code = UA Leuk Est) 12:30:00) [facility] ClinicCcfcckoBBGVELBTUK2602-09-59 17:30:00 Test Item Value Reference Range Interpretation Comments UA Ketones (test code Negative mg/dL = UA Ketones) *NA*(01/08/2012 12:30:00) [facility] ClinicGbmqewtKLNOTDNNWQ3736-55-54 17:30:00 Test Item Value Reference Range Interpretation Comments UA Bili (test code = Negative *NA*(01/08/2012 UA Bili) 12:30:00) [facility] ClinicQafzbbsHUPDUZANYN6669-91-49 17:30:00 Test Item Value Reference Range Interpretation Comments UA Blood (test code = Negative (01/08/2012 N UA Blood) 12:30:00) [facility] HospitalCdadjgbWOOVBRJBNS2686-46-28 17:30:00 Test Item Value Reference Range Interpretation Comments UA pH (test code = UA pH) 5.5 5.0-8.0 N [facility] HospitalGzdvvwmMDZSVTIVUF0713-15-06 17:30:00 Test Item Value Reference Range Interpretation Comments UA Protein (test code = 200 mg/dL A UA Protein) *ABN*(01/08/2012 12:30:00) [facility] ClinicPfrzaeyEMBBCHCCRO9440-13-69 17:30:00 Test Item Value Reference Range Interpretation Comments UA Glucose (test code Negative mg/dL = UA Glucose) *NA*(01/08/2012 12:30:00) [facility] ClinicKeepaonHAWYSJXBBA5412-26-59 17:30:00 Test Item Value Reference Range Interpretation Comments UA Sq Epi (test code = UA Sq Epi) None Seen [facility] HospitalZybeybnNVKEMNSQFG9143-91-86 17:30:00 Test Item Value Reference Range Interpretation Comments UA Spec Grav (test code = UA Spec Grav) 1.012 N [facility] HospitalSkqaitjZYNMAHRAJM4662-67-51 17:30:00 Test Item Value Reference Range Interpretation Comments UA Color (test code = Yellow *NA*(01/08/2012 UA Color) 12:30:00) [facility] HospitalEnicwjwADNEIOKEBR2283-99-21 17:30:00 Test Item Value Reference Range Interpretation Comments UA Turbidity (test code = Clear (01/08/2012 N UA Turbidity) 12:30:00) [facility] HospitalIpoxqikKonejpwqypcy0535-26-31 17:30:00 Test Item Value Reference Range Interpretation Comments Culture: Urine (test code = Culture: Urine) [facility] History and Physical Notes Date/Time Note Provider Source 2022-12-14 17:17:00-00:00 Hanna Mitchell MD: [facility] PERFORMEvent Display: History and PhysicalAuthored Date: [id number] and Physical Primary Team Name:Team Contact Info:PCP Contact info:Family contact info: Rosy Ingram (friend) Code Status: None Specified=FULL CODE Chief Complaint: LUE swelling History of Present Illness: 57M w/ ESRD on HD (MWF), HTN, Hx CVA 10/2013 (residual LUE weakness and left facial droop), past polysubstance abuse > 10 years ago [place] [facility] [place] [facility] for AV graft dysfunction. Patient has [...] for possible revision with [facility] in [place], however surgery has been postponed 2/2 supply [...] consult for intervention Ordered: Admit/Condition, 12/03/22 5:29:00 REGISTERED NURSE OBSTETRICS, Status: Inpatient, Acute, Expected LOS: 2 Midnights, Hanna Mitchell MD, Admit MD Review/Approve Yes, Isolation: No Isolation/Standard Precautions, Complications, dialysis, catheter, mechanical | ESRD on hemodialysis 2. ESRD on hemodialysis (N18.6) Ordered: Renvela, 1,600 mg, Route: PO, TID-Meals, Dosing Weight 91.364, kg, Start date: 12/03/22 8:00:00 REGISTERED NURSE OBSTETRICS, Duration: 30 day, Stop date: 01/01/23 17:00:00 CDT, Admit/Condition, 12/03/22 5:29:00 REGISTERED NURSE OBSTETRICS, Status: Inpatient, Acute, Expected LOS: 2 Midnights, Hanna Mitchell MD, Admit MD Review/Approve Yes, Isolation: No Isolation/Standard Precautions, Complications, dialysis, catheter, mechanical | ESRD on hemodialysis 3. HTN (hypertension) (I10) Ordered: metoprolol tartrate, 25 mg, Route: PO, Drug form: TAB, Q12H, Dosing Weight 91.364, kg, Start date: 12/03/22 9:00:00 REGISTERED NURSE OBSTETRICS, Duration: 30 day, Stop date: 01/01/23 21:00:00 CDT 4. History of stroke in adulthood (Z86.73) Residual LUE weakness/near paralysis and left facial droop N.p.o. after 3 AM for vascular surgery evaluation Prophylaxis -SCDs-Holding chemical VTE PPx at this time for evaluation for possible same-day invasive procedure Disposition Inpatient admissionBaHanna ascencio MDElectronically Signed: 12/03/22 05:37 2022-12-14 17:17:00-00:00 Hanna Mitchell MD: [facility] PER[employer] Display: History and PhysicalAuthored Date: [id number] and Physical Primary Team Name:Team Contact Info:PCP Contact info:Family contact info: Rosy Ingram (friend) Code Status: None Specified=FULL CODE Chief Complaint: LUE swelling History of Present Illness: 57M w/ ESRD on HD (MWF), HTN, Hx CVA 10/2013 (residual LUE weakness and left facial droop), past polysubstance abuse > 10 years ago [place] [facility] [place] [facility] for AV graft dysfunction. Patient has [...] for possible revision with [facility] in [place], however surgery has been postponed 2/2 supply [...] tunneled central venous catheter using fluoroscopic guidance (2017) Family History: Cancer: Grandparent. High blood pressure: [...] consult for intervention Ordered: Admit/Condition, 12/03/22 5:29:00 REGISTERED NURSE OBSTETRICS, Status: Inpatient, Acute, Expected LOS: 2 Midnights, Hanna Mitchell MD, Admit Review/Approve Yes, Isolation: No Isolation/Standard Precautions, Complications, dialysis, catheter, mechanical | ESRD on hemodialysis 2. ESRD on hemodialysis (N18.6) Ordered: Renvela, 1,600 mg, Route: PO, TID-Meals, Dosing Weight 91.364, kg, Start date: 12/03/22 8:00:00 REGISTERED NURSE OBSTETRICS, Duration: 30 day, Stop date: 01/01/23 17:00:00 CDT, Admit/Condition, 12/03/22 5:29:00 REGISTERED NURSE OBSTETRICS, Status: Inpatient, Acute, Expected LOS: 2 Midnights, Hanna Mitchell MD, Admit Review/Approve Yes, Isolation: No Isolation/Standard Precautions, Complications, dialysis, catheter, mechanical | ESRD on hemodialysis 3. HTN (hypertension) (I10) Ordered: metoprolol tartrate, 25 mg, Route: PO, Drug form: TAB, Q12H, Dosing Weight 91.364, kg, Start date: 12/03/22 9:00:00 REGISTERED NURSE OBSTETRICS, Duration: 30 day, Stop date: 01/01/23 21:00:00 CDT 4. History of stroke in adulthood (Z86.73) Residual LUE weakness/near paralysis and left facial droop N.p.o. after 3 AM for vascular surgery evaluation Prophylaxis -SCDs-Holding chemical VTE PPx at this time for evaluation for possible same-day invasive procedure Disposition Inpatient admissionBaHanna ascencio MDElectronically Signed: 12/03/22 05:37 Notes Date/Time Note Provider Source 2022-12-06 PROCEDURE INFORMATION: CARMINA peck 07:15:23-00:00 Exam: XR Chest Exam date and [...] placement. Matty Cote MD On 12/06/2022 07:43:05; MICHELLE [id number] 2022-12-06 PROCEDURE INFORMATION: CARMINA Londono liv 07:15:23-00:00 Exam: XR Chest Exam date and [...] placement. Matty Cote MD On 12/06/2022 07:43:05; MICHELLE [id number] 2022-12-03 PROCEDURE INFORMATION: CARMINA Marquisflaco peck 08:00:00-00:00 Exam: US Duplex Hemodialysis Access [...] outflow. Valentin Evans MD On 12/03/2022 09:19:45; ANTONI -[id number] 2022-12-03 PROCEDURE INFORMATION: CARMINA peck 08:00:00-00:00 Exam: [...] outflow. Valentin Evans MD On 12/03/2022 09:19:45; ANTONI -[id number] 2022-12-03 PROCEDURE INFORMATION: CARMINA peck 07:05:00-00:00 Exam: [...] process. Nigel Tsai MD On 12/03/2022 08:03:26; [id number] 2022-12-03 PROCEDURE INFORMATION: Bry peck 07:05:00-00:00 Exam: XR Chest Exam date [...] process. Nigel Tsai MD On 12/03/2022 08:03:26; [id number] 2018-01-27 EXAM: XR LEFT KNEE 3 VIEWS [facility] 16:25:00-00:00 DATE: 01/27/[address] INDICATION: - L knee pain after fall COMPARISON: Left knee radiograph 11/03/2012 TECHNIQUE: 3 views of the knee FINDINGS: No acute fracture or malalignment is i dentified. No knee joint effusion is present. No soft tissu e abnormality is identified. IMPRESSION: No acute abnormality. UT SECTION: ER 2018-01-27 EXAM: XR LEFT KNEE 3 VIEWS [facility] 16:25:00-00:00 DATE: 01/27/[address] INDICATION: - L knee pain after fall COMPARISON: Left knee radiograph 11/03/2012 TECHNIQUE: 3 views of the knee FINDINGS: No acute fracture or malalignment is i dentified. No knee joint effusion is present. No soft tissu e abnormality is identified. IMPRESSION: No acute abnormality. UT SECTION: ER 2017-04-10 PROCEDURES PERFORMED: CARMINA Araujo and 12:02:35-00:00 1. Exchange of right IJ [...] Total sedation time was 30 minutes. DAP :[id number] mgy-cm Fluoro time: 8.3 min PROCEDURE DETAILS: [...] wires, the catheter was exchanged for a 7-Wallisian vascular sheath. An SVC venogram was performe [...] okay for use. 2017-04-10 PROCEDURES PERFORMED: CARMINA Araujo and 12:02:35-00:00 1. Exchange of right IJ [...] Total sedation time was 30 minutes. DAP :[id number] mgy-cm Fluoro time: 8.3 min PROCEDURE DETAILS: [...] wires, the catheter was exchanged for a 7-Wallisian vascular sheath. An SVC venogram was performe [...] is okay for use. 2017-04-10 PROCEDURES PERFORMED: Isabell Araujo and 11:13:41-00:00 1. Exchange of right IJ [...] Total sedation time was 30 minutes. DAP :[id number] mgy-cm Fluoro time: 8.3 min PROCEDURE DETAILS: [...] wires, the catheter was exchanged for a 7-Wallisian vascular sheath. An SVC venogram was performe [...] okay for use. 2017-04-10 PROCEDURES PERFORMED: CARMINA Araujo and 11:13:41-00:00 1. Exchange of right IJ [...] Total sedation time was 30 minutes. DAP :288182 mgy-cm Fluoro time: 8.3 min PROCEDURE DETAILS: [...] wires, the catheter was exchanged for a 7-Wallisian vascular sheath. An SVC venogram was performe [...] okay for use. 2017-04-10 PROCEDURES PERFORMED: CARMINA Araujo and 11:13:30-00:00 1. Exchange of right IJ [...] Total sedation time was 30 minutes. DAP :[id number] mgy-cm Fluoro time: 8.3 min PROCEDURE DETAILS: [...] wires, the catheter was exchanged for a 7-Wallisian vascular sheath. An SVC venogram was performe [...] okay for use. 2017-04-10 PROCEDURES PERFORMED: CARMINA Araujo and 11:13:30-00:00 1. Exchange of right IJ [...] Total sedation time was 30 minutes. DAP :[id number] mgy-cm Fluoro time: 8.3 min PROCEDURE DETAILS: [...] wires, the catheter was exchanged for a 7-Wallisian vascular sheath. An SVC venogram was performe [...] okay for use. 2017-04-10 PROCEDURES PERFORMED: CARMINA Araujo and 11:13:10-00:00 1. Exchange of right IJ [...] Total sedation time was 30 minutes. DAP :845093 mgy-cm Fluoro time: 8.3 min PROCEDURE DETAILS: [...] wires, the catheter was exchanged for a 7-Wallisian vascular sheath. An SVC venogram was performe [...] is okay for use. 2017-04-10 PROCEDURES PERFORMED: Sugar L and 11:13:10-00:00 1. Exchange of right IJ [...] Total sedation time was 30 minutes. DAP :668817 mgy-cm Fluoro time: 8.3 min PROCEDURE DETAILS: [...] wires, the catheter was exchanged for a 7-Wallisian vascular sheath. An SVC venogram was performe [...] CLINICAL HISTORY: - dialysis catheter malfunctio ramesh [place] 17:46:48-00:00 AGE: 51 years GENDER: Male TECHNIQUE: [...] catheter with its tip in the SVC. 2017-04-09 CLINICAL HISTORY: - dialysis catheter malfunctio ramesh [place] 17:46:48-00:00 AGE: 51 years GENDER: Male TECHNIQUE: [...] tip in the SVC. 2017-03-12 PROCEDURES PERFORMED: CARMINA Araujo and 12:45:10-00:00 1. Placement of tunnelled hemodialysis [...] neck. A 0.035 wire was then advanc ed through the micropuncture sheath to the level of the IVC. Over the 0.035 wire the puncture site was sequentially dilated, ultimately with an 18 Wallisian peel-away sheath. Th e wire and dilator [...] was placed. Catheter is okay for use. 2017-03-12 PROCEDURES PERFORMED: Isabell L and 12:45:10-00:00 1. Placement of tunnelled hemodialysis [...] neck. A 0.035 wire was then advanc ed through the micropuncture sheath to the level of the IVC. Over the 0.035 wire the puncture site was sequentially dilated, ultimately with an 18 Wallisian peel-away sheath. Th e wire and dilator [...] use. 2017-03-11 EXAM: XR CHEST 1 VIEW [facility] Sugar L and 08:45:00-00:00 DATE: 03/11/2017 8:41 AM CDT INDICATION: renal failure - eval COMPARISON: 11/24/2013 TECHNIQUE: Frontal chest radiograph FINDINGS: The lungs are clear. The cardiomediastinal silhouette is normal. There is no acute bony abnormality. IMPRESSION: No acute abnormality SL: [id number] 2017-03-11 EXAM: XR CHEST 1 VIEW MH Sugar L and 08:45:00-00:00 DATE: 03/11/2017 8:41 AM CDT INDICATION: renal failure - eval COMPARISON: 11/24/2013 TECHNIQUE: Frontal chest radiograph FINDINGS: The lungs are clear. The cardiomediastinal silhouette is normal. There is no acute bony abnormality. IMPRESSION: No acute abnormality SL: [id number] 2017-03-10 EXAM: [place] 20:38:23-00:00 Renal ultrasound. CLINICAL HX: Kidney failure. [...] kidneys. Correlate clinically for medical renal disease. 2017-03-10 EXAM: [facility] 20:38:23-00:00 Renal ultrasound. CLINICAL HX: Kidney failure. [...] Esophagus barium swallow function video ( Rad) [facility] 10:42:33-00:00 Fluoro time: 4.1 min FINDINGS: Fluoroscopic imagi ng was provided for the speech pathologist to perform a modified barium swallow study. The patient was allowed to ingest foods containing barium and lateral imaging of the pharynx and esophagus was performed. IMPRESSION: Fluoroscopic seven ging provided for modified barium swallow study. Please see speech pathologist report for findings. 2013-11-26 STUDY: Esophagus barium swallow function video ( Rad) [facility] 10:42:33-00:00 Fluoro time: 4.1 min FINDINGS: Fluoroscopic imagi ng was provided for the speech pathologist to perform a modified barium swallow study. The patient was allowed to ingest foods containing barium and lateral imaging of the pharynx and esophagus was performed. IMPRESSION: Fluoroscopic seven ging provided for modified barium swallow study. Please see speech pathologist report for findings. 2013-11-24 Single view abdomen. [facility] 22:48:45-00:00 INDICATION: Tube change. COMPARISON: Yesterday. IMPRESSION: There appears to be a nasoga stric tube with tip projecting over the left upper quadrant in the expected region of the stomach. 2013-11-24 Single view abdomen. [facility] 22:48:45-00:00 INDICATION: Tube change. COMPARISON: Yesterday. IMPRESSION: There appears to be a nasoga stric tube with tip projecting over the left upper quadrant in the expected region of the stomach. 2013-11-24 Single view chest. [facility] 04:14:30-00:00 INDICATION: Cough and fever. COMPARISON: November 22, 2013. FINDINGS: New nasogastric tube with ti p inferior to the level of exam. Cardiac silhouette is within normal limits. Mild pulmonary vascular congestion is again seen. No pneumothorax, lobar consolidation, or pleural effusion. Unremarkable osseous structures. IMPRESSION: Stable mild pulmonary vascular congestion. 2013-11-24 Single view chest. [facility] 04:14:30-00:00 INDICATION: Cough and fever. COMPARISON: November 22, 2013. FINDINGS: New nasogastric tube with ti p inferior to the level of exam. Cardiac silhouette is within normal limits. Mild pulmonary vascular congestion is again seen. No pneumothorax, lobar consolidation, or pleural effusion. Unremarkable osseous structures. IMPRESSION: Stable mild pulmonary vascular congestion. 2013-11-23 CLINICAL HISTORY:Bleeding. [facility] 19:29:02-00:00 Sex: M. : 1965. TECHNIQUE: Axial scans were performed through the head with axial dataset following bolus intravenous injection of 50 cc of Visipaque including multiplanar computer-generated MIP reformations. 3-D imagi ng was unable to be performed. Total Dose(DLP): 2016 mGy-cm. CTA brain: Large right-sided hemorrhage s with edema and mass effect noted on the deicer kit assembler series. Visualization is limited bec ause of [...] IMPRESSION: 1. No hemodynamically significant lesion. 2013-11-23 CLINICAL HISTORY:Bleeding. [facility] 19:29:02-00:00 Sex: M. : 1965. TECHNIQUE: Axial scans were performed through the head with axial dataset following bolus intravenous injection of 50 cc of Visipaque including multiplanar computer-generated MIP reformations. 3-D imagi ng was unable to be performed. Total Dose(DLP): 2016 mGy-cm. CTA brain: Large right-sided hemorrhage s with edema and mass effect noted on the deicer kit assembler series. Visualization is limited bec ause of [...] significant lesion. 2013-11-23 Exam: Abdomen one view [facility] 13:23:26-00:00 History: Tube placement Comparison Study: None. [...] tube is in s atisfactory position . 2013-11-23 Exam: Abdomen one view [facility] 13:23:26-00:00 History: Tube placement Comparison Study: None. Findings: AP supine view of the abdomen demonstrates a nonspecific bowel gas pattern. Presence of a nasogastric tube is noted in satisfactory position. There is no evidence of organomegaly. There is no evidence of radiopaque calc micah or calcifications . The bony structures are unremarkable.. . Impression: Nonspecific bowel gas pattern . NG tube is in s atisfactory position . 2013-11-22 CLINICAL HISTORY:Bleeding. [facility] 20:32:41-00:00 Sex: M. : 1965. TECHNIQUE: Axial scans of th e brain without contrast including multiplanar computer-generated reformations. Total Dose(DLP): 767.06 mGy-cm. Comparison to previous same day at 1239. Hemorrhage in the right melany sphere centered in the basal ganglia with [...] edema and probable small intraventricular rupture. 2013-11-22 CLINICAL HISTORY:Bleeding. [facility] 20:32:41-00:00 Sex: M. : 1965. TECHNIQUE: Axial scans of th e brain without contrast including multiplanar computer-generated reformations. Total Dose(DLP): 767.06 mGy-cm. Comparison to previous same day at 1239. Hemorrhage in the right melany sphere centered in the basal ganglia with [...] edema and probable small intraventricular rupture. 2013-11-22 [facility] 20:15:09-00:00 CLINICAL HISTORY: Renal insufficiency. Sex: M. [...] . IMPRESSION: 1. Negative renal ultrasound. 2013-11-22 [facility] 20:15:09-00:00 CLINICAL HISTORY: Renal insufficiency. Sex: M. [...] 1. Negative renal ultrasound. 2013-11-22 STUDY: Chest [address] [address] ity 13:14:52-00:00 COMPARISON: Chest, single view dated [...] and cardiomegaly. No focal consolidation seen. 2013-11-22 STUDY: Chest [address] [place] [place] [address] ity 13:14:52-00:00 COMPARISON: Chest, single view dated [...] 2013-11-22 CT of the head without contrast [facility] 12:53:43-00:00 Comparison:None Exam Dose Length Product: 1002 [...] room at 13:00 on November 22, 2013 2013-11-22 CT of the head without contrast [facility] 12:53:43-00:00 Comparison:None Exam Dose Length Product: 1002 [...]
[2023-03-31 13:35] LABS: Absolute Lymphocytes (CBC) 1.4 K/uL (0.7-4.9); Hematocrit 44.1 % (39.6-49.0); Lymphocytes % 19.8 % (15.3-44.8); MCV 97.5 fL (80-100); MPV 7.6 fL (7.6-11.3); RBC Red Blood Cell Count 4.52 M/uL (4.33-5.43)
--- NOTE | 2023-03-31 13:45 | RAD REPORT ---
EXAM DESCRIPTION: RAD - Chest Single View - 03/31/2023 1:33 pm CLINICAL HISTORY: abdominal Chest pain. COMPARISON: Chest Single View dated 03/26/2023; Chest Single View dated 11/19/2022; Chest Single View dated 08/05/2022; Chest Single View dated 07/29/2022 FINDINGS: Portable technique limits examination quality. The lungs are grossly clear. The heart is normal in size. No displaced fractures. IMPRESSION: No acute intrathoracic process suspected.
[2023-03-31 14:03] LABS: Magnesium 2.7 mg/dL (1.6-2.4); Potassium 4.2 mEq/L (3.5-5.1); Troponin High Sensitivity 8.1 pg/mL (<58.9)
--- NOTE | 2023-03-31 14:34 | ER ---
Nurse's Notes [facility] Name: Ben Otto Age: 57 yrs Sex: Male : 1965 Arrival Date: 03/31/2023 Time: 12:22 Bed 19 Private MD: Diagnosis: Palpitations Presentation: 03/31 12:31 Chief complaint: Patient states: hypotension with tachycardia in the 140s wile at os dialysis. Coronavirus screen: Vaccine status: Patient reports receiving the 2nd dose of the covid vaccine. Client denies travel out of the [place] in the last 14 days. Ebola Screen: Patient negative for fever greater than or equal to 101.5 degrees Fahrenheit, and additional compatible Ebola Virus Disease symptoms. Initial Sepsis Screen: Does the patient meet any 2 criteria? No. Patient's initial sepsis screen is negative. Does the patient have a suspected source of infection? No. Patient's initial sepsis screen is negative. Risk Assessment: Do you want to hurt yourself or someone else? Patient reports no desire to harm self or others. Onset of symptoms was March 31, 2023. 12:31 Method Of Arrival: EMS: [facility] os 12:31 Acuity: JEREMY 3 os Triage Assessment: 12:38 General: Appears in no apparent distress. Behavior is calm, cooperative, appropriate os for age. Pain: Denies pain. Neuro: No deficits noted. Cardiovascular: Rhythm is sinus bradycardia. Respiratory: No deficits noted. Historical: - Immunization history:: Adult Immunizations up to date. - Social history:: Smoking status: unknown. Screenin:[address] [facility] ED Fall Risk Assessment (Adult) Score/Fall Risk Level 3 or more points = High iw Risk Oriented to surroundings. Abuse screen: Denies threats or abuse. Denies injuries from another. Nutritional screening: No deficits noted. Tuberculosis screening: No symptoms or risk factors identified. Assessment: 13:27 General: Appears in no apparent distress. Behavior is calm, cooperative. Pain: Denies iw pain. Neuro: Level of Consciousness is awake, alert, obeys commands. Vital Signs: 12:31 BP 113 / 58; Pulse 61; Resp 18; Temp 98.2; Pulse Ox 96% on R/A; Weight 102.06 kg; os 15:12 BP 152 / 81; Pulse 52; Resp 18; Pulse Ox 98% on R/A; os ED Course: 12:23 Patient arrived in ED. iw 12:25 Holland Monique MD is Attending Physician. kdr 12:31 Francisca Ramos, JOBY is Primary Nurse. os 12:37 Triage completed. os 13:27 Initial lab(s) drawn, by me, sent to lab. Inserted saline lock: 20 gauge in right iw antecubital area, using aseptic technique. Blood collected. 13:27 Arm band placed on. iw 13:35 XRAY Chest (1 view) In Process Unspecified. EDMS 15:11 No provider procedures requiring assistance completed. IV discontinued. os Administered Medications: No medications were administered Medication: 13:28 VIS not applicable for this client. iw Outcome: 14:33 Discharge ordered by . kdr 15:11 Discharged to home ambulatory. os 15:11 Condition: stable 15:11 Discharge instructions given to patient, Instructed on discharge instructions, follow up and referral plans. 15:12 Patient left the ED. os Signatures: Dispatcher [employer] EDMS Holland Monique MD MD kdr Francine Virk RN RN iw Francisca Ramos RN RN os Corrections: (The following items were deleted from the chart) 12:38 12:38 PMHx: CVA; os os 12:38 12:38 PMHx: Dialysis; M-W-F; os os 12:38 12:38 PMHx: chronic immune disease; os os 12:38 12:38 PMHx: End stage renal disease; os os 12:38 12:38 PMHx: Hypertensive disorder; os os 12:38 12:38 PSHx: Left upper arm fistula; os os
--- NOTE | 2023-03-31 14:34 | EDPHYS ---
Physician Documentation [facility] Name: Ben Otto Age: 57 yrs Sex: Male : 1965 Arrival Date: 03/31/2023 Time: 12:22 Bed 19 Private MD: ED Physician Holland Monique HPI: 03/31 13:47 This 57 yrs old Male presents to ER via EMS with complaints of Palpitations kdr and tachycardia. 13:47 Patient states that he has had palpitations and intermittent transient tachycardia for kdr the past several months. He has seen cardiology for the and evaluation without specific diagnosis or treatment being offered. Patient has continued to have his recurrent but unpredictable symptoms. He had another episode today and called EMS. Patient appears to be generally comfortable and without acute illness or injury at this time. Given the chronic nature of this problem, the patient was advised that we may not find a solution here in the ED today. Patient otherwise appeared to be nontoxic with a heart rate of 61 during my interview. Onset: The symptoms/episode began/occurred at an unknown time. Severity of symptoms: At their worst the symptoms were mild moderate just prior to arrival, in the emergency department the symptoms have resolved have improved. The patient has experienced similar episodes in the past, chronically. The patient has not recently seen a physician. Historical: - Immunization history:: Adult Immunizations up to date. - Social history:: Smoking status: unknown. ROS: 13:47 Constitutional: Negative for fever, chills, and weight loss, Eyes: Negative for injury, kdr pain, redness, and discharge, ENT: Negative for injury, pain, and discharge, Neck: Negative for injury, pain, and swelling, Respiratory: Negative for shortness of breath, cough, wheezing, and pleuritic chest pain, Abdomen/GI: Negative for abdominal pain, nausea, vomiting, diarrhea, and constipation, Back: Negative for injury and pain, : Negative for injury, bleeding, discharge, and swelling, MS/Extremity: Negative for injury and deformity, Skin: Negative for injury, rash, and discoloration, Neuro: Negative for headache, weakness, numbness, tingling, and seizure activity. Psych: Negative for depression, anxiety, suicide ideation, homicidal ideation, and hallucinations, Allergy/Immunology: Negative for hives, rash, and allergies, Endocrine: Negative for neck swelling, polydipsia, polyuria, polyphagia, and marked weight changes, Hematologic/Lymphatic: Negative for swollen nodes, abnormal bleeding, and unusual bruising. 13:47 Cardiovascular: Positive for palpitations. Exam: 13:47 Constitutional: This is a well developed, well nourished patient who is awake, alert, kdr and in no acute distress. Head/Face: Normocephalic, atraumatic. Eyes: Pupils equal round and reactive to light, extra-ocular motions intact. Lids and lashes normal. Conjunctiva and sclera are non-icteric and not injected. Cornea within normal limits. Periorbital areas with no swelling, redness, or edema. Neck: Trachea midline, no thyromegaly or masses palpated, and no cervical lymphadenopathy. Supple, full range of motion without nuchal rigidity, or vertebral point tenderness. No Meningismus. Chest/axilla: Normal chest wall appearance and motion. Nontender with no deformity. No lesions are appreciated. Cardiovascular: Regular rate and rhythm with a normal S1 and S2. No gallops, murmurs, or rubs. Normal PMI, no JVD. No pulse deficits. Respiratory: Lungs have equal breath sounds bilaterally, clear to auscultation and percussion. No rales, rhonchi or wheezes noted. No increased work of breathing, no retractions or nasal flaring. Abdomen/GI: Soft, non-tender, with normal bowel sounds. No distension or tympany. No guarding or rebound. No evidence of tenderness throughout. Back: No spinal tenderness. No costovertebral tenderness. Full range of motion. Skin: Warm, dry with normal turgor. Normal color with no rashes, no lesions, and no evidence of cellulitis. MS/ Extremity: Pulses equal, no cyanosis. Neurovascular intact. Full, normal range of motion. Neuro: Awake and alert, GCS 15, oriented to person, place, time, and situation. Cranial nerves II-XII grossly intact. Motor strength 5/5 in all extremities. Sensory grossly intact. Cerebellar exam normal. Normal gait. Psych: Awake, alert, with orientation to person, place and time. Behavior, mood, and affect are within normal limits. Vital Signs: 12:31 BP 113 / 58; Pulse 61; Resp 18; Temp 98.2; Pulse Ox 96% on R/A; Weight 102.06 kg; os 15:12 BP 152 / 81; Pulse 52; Resp 18; Pulse Ox 98% on R/A; os MDM: 13:47 Data reviewed: vital signs, nurses notes. kdr 14:33 Patient medically screened. [facility] 03/31 13:21 Order name: Basic Metabolic Panel; Complete Time: 14:07 [facility] 03/31 13:21 Order name: CBC with Diff; Complete Time: 14:07 [facility] 03/31 13:21 Order name: Magnesium; Complete Time: 14:07 [facility] 03/31 13:21 Order name: Troponin HS; Complete Time: 14:07 [facility] 03/31 13:21 Order name: XRAY Chest (1 view); Complete Time: 14:07 [facility] 03/31 13:21 Order name: EKG; Complete Time: 13:22 [facility] 03/31 13:21 Order name: Cardiac monitoring; Complete Time: 13:37 kdr 03/31 13:21 Order name: EKG - Nurse/Tech; Complete Time: 13:37 [facility] 03/31 13:21 Order name: IV Saline Lock; Complete Time: 13:37 [facility] 03/31 13:21 Order name: Labs collected and sent; Complete Time: 13:37 kdr 03/31 13:21 Order name: O2 Per Protocol; Complete Time: 13:37 kdr 03/31 13:21 Order name: O2 Sat Monitoring; Complete Time: 13:37 kdr Administered Medications: No medications were administered Disposition Summary: 03/31/23 14:33 Discharge Ordered Location: Home kdr Problem: new kdr Symptoms: have improved kdr Condition: Stable kdr Diagnosis - Palpitations kdr Followup: kdr - With: Private Physician - When: 2 - 3 days - Reason: If symptoms return, Further diagnostic work-up, Recheck today's complaints, Continuance of care, Re-evaluation by your physician Discharge Instructions: - Discharge Summary Sheet kdr - Palpitations, [id number] kdr Forms: - Medication Reconciliation Form kdr - Thank You Letter [facility] - [email or web address] kdr Signatures: Dispatcher [employer] Holland Mercado MD MD kdr Francisca Ramos RN RN os Corrections: (The following items were deleted from the chart) 12:38 12:38 PMHx: CVA; os os 12:38 12:38 PMHx: Dialysis; M-W-F; os os 12:38 PMHx: chronic immune disease; os os 12:38 PMHx: End stage renal disease; os os 12:38 PMHx: Hypertensive disorder; os os 12:38 PSHx: Left upper arm fistula; os os
[2023-03-31 15:20] VITALS: TEMP 98.2
[2023-03-31 15:21] VITALS: BP 152/81; O2SAT 98
--- NOTE | 2023-04-02 12:36 | EKG ---
Test Date: 2023-03-31 Test Time: 13:41:49 [employer] Machine Helper: DEBBIE MEASUREMENT RESULTS: Intervals: Rate: 53 FL: 240 QRSD: 78 QT: 398 QTc: 373 Rumsey: P: 69 FL: 240 QRS: 71 T: 56 INTERPRETIVE STATEMENTS: Sinus bradycardia with 1st degree AV block Otherwise normal ECG Compared to ECG 03/26/2023 13:56:32 Sinus rhythm no longer present Electronically Signed On 04-02-23 12:33:31 CDT by Charles Tracy
== END 2023-03-31 15:12 | disposition home or self-care (01) ==
LOC: ER 12:22
DX: R00.2 Palpitations (principal)
CPT/HCPCS: 36415; 71045; 80048; 83735; 84484; 85025; 93005; 99284

== ENCOUNTER 2023-05-10 19:01 | Observation (INO) | payer OTHER ==
[2023-05-10] MEDS ORDERED: ACETAMINOPHEN 500 MG TAB ONE (19:29)
--- OUTSIDE RECORDS SUMMARY | 2023-05-10 19:30 | XMS REPORT | Continuity of Care Document ---
:1965 Author Organization [facility] t Address [address] [place] [address] [place] [id number] Care Team Providers Name Role Phone PCP, [...] Attending Clinician Elidia Kat MD Attending Clinician [phone] Vtc-Lab Attending Clinician Unavailable Certified Nursing Assistant, Transplant Attending Clinician Unavailable ANAI STONE Attending Clinician Unavailable Worker, Transplant Social Attending Clinician Unavailable Anai Stone MD Attending Clinician Renal, Transplant Class Attending Clinician Unavailable Jeromy Cannon Attending Clinician DR ELIUD MAY Attending Clinician Unavailable Sada Hurst Attending Clinician Romi Ritchie Attending Clinician Shun Roper Attending Clinician Stephanie Mg Attending Clinician Valeri Zarco Attending Clinician Shira Stevenson Attending Clinician DR PAUL BARFIELD Attending Clinician Unavailable Janak Ingram Attending Clinician Armond Moreland Attending Clinician Malorie Ahn Attending Clinician Eduin Tsai Attending Clinician Pancho Mireles Attending Clinician Mauricio Whitmore Attending Clinician Judy Calderon Attending Clinician STEFANY COTA Admitting Clinician Unavailable Hanna Mitchell Admitting Clinician HANNA MITCHELL Admitting Clinician Unavailable ROBERTO PRATT Admitting Clinician Unavailable DR ELIUD MAY Admitting Clinician Unavailable Shun Roper Admitting Clinician DR PAUL BARFIELD Admitting Clinician Unavailable Pancho Mireles Admitting Clinician Mauricio Whitmore Admitting Clinician Judy Calderon Admitting Clinician Payers Payer Name Policy Type Policy Number Effective Date Expiration Date S isidro [employer] MEDICARE [id number] 2018 ADVANTAGE HMO 00:00:00 [employer] GOLD PLS [id number] 2018 HMO 00:00:00 Problems Condition Condition Condition [...] 08:14:00 l FISTULA ON OF AV 00:00: [place] FISTULA 00 Active 12/02/2022 [facility] SI SI Active Diagnosis Active 2018-092019-08-19 Memoria 08/19/201910-19 14:02:00 l Sugar 00:00: [place] 00 NEW NEW Diagnosis Active 2019-06-22 Mem oria EVALUATION EVALUATION 03-18 07:29:00 l Active 00:00: [place] 03/18/[address] [facility] G81.92 G81.92 Diagnosis Active 2019-01-27 Me moria Active 01-27 09:05:00 l 01/27/2019 07:00: Luisito walsh [facility] 00 COLON COLON Diagnosis Active 2017-092019-01-04 Mem oria CANCER CANCER 11-25 16:49:00 l SCREENING- SCREENING- 00:00: rmann Z12.11 Z12.11 00 Active 09/24/2018 [place] I63.9, I63.9, Diagnosis Active 2017-092019-01-10 Ct moria N18.6 N18.6 0 16:23:00 l Active 07:00: [place] 07/16/2018 00 [facility] N18.6 N18.6 Diagnosis Active [...] Herm elidia ONLY ONLY 00 Active 01/27/[address] [facility] FALL FALL Diagnosis Active 2018-04-09 Mem oria Active 01-27 14:03:00 l 01/27/2018 00:00: Luisito walsh [address] Center N18.16 N18.16 Diagnosis Active 2017-11-14 M ronena Active 10-29 10:52:00 l 10/29/2017 00:00: Luisito walsh [address] [id number]/N [id number]/ Diagnosis Active 2017-06-26 Memoria 18.6 N18.6 9-18 07:13:00 l Active 00:00: Momo 06/16/2017 00 [facility] INTRACRANI INTRACRAN Diagnosis Active 2013-11-25 Memoria AL IAL 11-22 15:29:00 l HEMORRHAGE HEMORRHAGE 00:00: He rmann Active 11/22/2013 [facility] OTHER OTHER Diagnosis Active 2013-11-22 Me moria Active 11-22 13:18:00 l 11/22/2013 00:00: Luisito wlash [address] 719.4 - 719.4 - Diagnosis Active 2013-02-01 Memoria PAIN IN PAIN IN -18 19:45:00 l JOINT JOINT 00:01: Momo Active 00 12/14/[address] [facility] KNEE PAIN KNEE PAIN Diagnosis Active 2012-11-03 Memoria Active 11-03 09:25:00 l 11/03/2012 07:00: Luisito walsh [address] SWOLLEN SWOLLEN Diagnosis Active 2012-02-14 Memoria FACE FACE 4-10 09:39:00 l Active 05:00: Momo 01/07/2012 00 [facility] No known No known Disease Unive rs active active ity of problems problems [facility] End stage End stage Problem Active 2018-04-09 Memoria renal renal 14:34:12 l disease disease Momo (disorder) (disorder) Active Problem 04/09/2018 [facility], [place],[facility], [place] Dependence Dependenc Problem Active 2018-04-09 Memoria on renal e on renal 14:34:12 l dialysis dialysis Luisito walsh (finding) (finding) Active Problem 04/09/2018 [facility] Group,[facility], [facility], [place] Knee pain Knee pain Problem Active 2018-04-09 Memoria (finding) (finding) 14:34:12 l Active Momo Problem 04/09/2018 Medical Group,[facility], [facility], [facility] Asthenia Asthenia Problem Active 2017-09-04 Memoria (finding) (finding) 03:33:54 l Active [place]on Problem 09/04/2017 left side Medical Group,[facility], [place] Dependence Dependenc Problem Active 2022-12-16 Memoria on e on 23:09:33 l hemodialys hemodialys He rmann is due to is due to end stage end stage renal renal disease disease (finding) (finding) Active Problem 12/16/2022 Medical Group,[facility], [facility], [facility] History of History Problem Active 2022-12-16 Memoria adenomatou of 23:09:33 l s polyp of adenomatou He rmann colon s polyp of (situation colon ) (situation ) Active Problem 12/16/2022 [facility], [facility] History of History Problem Active 2022-12-16 Memoria - CVA of - CVA 23:09:33 l (context-d (context-d He rmann ependent ependent category) category) Active Problem 12/16/2022 [facility], [facility] Hypertensi Hypertens Problem Active 2022-12-16 Memoria ve babs 23:09:33 l disorder, disorder, Herm elidia systemic systemic arterial arterial (disorder) (disorder) Active Problem 12/16/2022 Medical Group,[facility], [facility], [facility] Left Left Problem Active 2022-12-16 Memor ia hemiparesi hemiparesi 23:09:33 l s s Momo (disorder) (disorder) Active Problem 12/16/2022 [facility], [facility], [facility] Obesity Obesity Problem Active 2022-12-16 Me moria (disorder) (disorder) 23:09:33 l Active [place] Problem 12/16/2022 Medical Group,[facility], [facility], [place],Memor ial [facility] OT Diagnosis Active 2022-12-20 Mem oria COMPLICATI COMPLICATI 21:47:00 l ON OF ON OF Momo VASCULAR VASCULAR DIALYSIS DIALYSIS CA CA Active [facility] Active 2022-12-04 Memoria OF COMPL OF 08:14:00 l SURGICALLY SURGICALLY He rmelidia CREATED CREATED ARTERIO ARTERIO Active [facility] ADMINISTRT ADMINISTR Diagnosis Active 2013-11-25 Memoria VE ENCOUNT TVE 15:29:00 l NOS ENCOUNT [place] NOS Active [facility] Anemia in Anemia in [facility] 12:05:44 l kidney kidney [place]on disease disease 02/19/2018 [facility] Hyperlipid Hyperlipi Problem 2018-02-19 [facility] em[facility], demia, 12:05:44 l unspecifie unspecifie He rmann d d 02/19/2018 [facility] Personal Personal Problem 2018-02-19 Memoria history of history of 12:05:44 l other other [place] infectious infectious and and parasitic parasitic diseases diseases 02/19/2018 [facility] Other Other Problem 2019-03-11 Memor ia speech and speech and 11:15:31 l language language Luisito walsh deficits deficits following following cerebral cerebral infarction infarction 9 [facility] Benign Benign Problem 2019-04-13 [place] neoplasm neoplasm 12:31:49 l of of Momo transverse transverse colon colon 04/13/2019 [place] Polyp of Polyp of Problem 2019-04-13 Memoria colon colon 12:31:49 l 04/13/2019 Luisito n [place] Diverticul Diverticu Problem 2019-04-13 Memoria osis of losis of 12:31:49 l large large [place]on intestine intestine without without perforatio perforatio n or n or abscess abscess without without bleeding bleeding 04/13/2019 [place] First First Problem 2019-04-13 Memor ia degree degree 12:31:49 l hemorrhoid hemorrhoid He rmann s s 04/13/2019 [place] Hypertensi Hypertens Problem 2019-04-13 Memoria ve chronic babs 12:31:49 l kidney chronic Momo disease kidney with stage disease 5 chronic with stage kidney 5 chronic disease or kidney end stage disease or renal end stage disease renal disease 04/13/[address] [facility] [place] Hemiplegia Hemiplegi Problem 2019-04-13 Memoria and a and 12:31:49 l hemiparesi hemiparesi He rmann s s following following cerebral cerebral infarction infarction affecting affecting left left non-domina non-domina nt side nt side 04/13/2019 [facility] [place] Obesity, Obesity, Problem 2019-04-13 Memoria unspecifie unspecifie 12:31:49 l d d Momo 04/13/2019 [facility] [place] Gastro-eso Gastro-es Problem 2019-04-13 Memoria phageal ophageal 12:31:49 l reflux reflux [place]on disease disease without without esophagiti esophagiti s s 04/13/2019 [place] Dependence Dependenc Problem 2019-04-13 Memoria on renal e on renal 12:31:49 l dialysis dialysis Luisito walsh 04/13/[address] [facility], [facility] [place] Other long Other Problem 2019-04-13 M emoria term skilled nursing 12:31:49 l (current) (current) [facility] drug drug therapy therapy 04/13/2019 [place] Body mass Body mass Problem 2019-04-13 Memoria index index 12:31:49 l (BMI) (BMI) Momo 34.0-34.9, 34.0-34.9, adult adult 04/13/2019 [place] 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[place] [...] knee, left knee, 01:28:35 l initial initial [place]on encounter encounter 02/06/[address] [facility] Fall from Fall from Problem 2018-02-06 Memoria non-moving non-moving 01:28:35 l wheelchair wheelchair He curt , initial , initial encounter encounter 02/06/[address] [facility] Personal Personal Problem 2019-02-14 Memoria history of history of 11:52:48 l transient transient Herm elidia ischemic ischemic attack attack (TIA), and (TIA), and cerebral cerebral infarction infarction without without residual residual deficits deficits 02/14/2019 [facility], [place] HTN - HTN - Problem Resolve 2012-11-05 Mem oria Hypertensi Hypertensi d 14:11:00 l on on [place]on Resolved Problem 11/05/2012 [facility] Anemia Anemia Problem Resolve 2022-12-09 Mem oria (disorder) (disorder) d 15:15:22 l Resolved Momo Problem 12/09/2022 [facility] Group,[facility], [facility], [facility] Gastroesop Gastroeso Problem Resolve 2022-12-09 Memoria hageal phageal d 15:15:22 l reflux reflux Momo disease disease (disorder) (disorder) Resolved Problem 12/09/2022 [facility] Group,[facility], [facility], [facility] Motion Motion Problem Resolve 2022-12-09 Mem oria sickness sickness d 15:15:22 l (disorder) (disorder) He rmann Resolved Problem 12/09/2022 [facility] Group,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, [facility], [facility] Urinary Urinary Problem Resolve 2022-12-09 M emoria tract tract d 15:15:22 l infectious infectious He rmann disease disease (disorder) (disorder) Resolved Problem 12/09/2022 [facility] Group,[facility], [facility], [facility] Diabetes Diabetes Problem Resolve 2013-11-28 Memoria mellitus mellitus d 22:32:01 l (disorder) (disorder) He rmann Resolved Problem 11/28/2013 [facility] Cerebrovas Cerebrova Problem Resolve 2013-0 2022-12-09 2022-12-09 Memoria yani scular d 11-23 15:15:22 15:15:22 l accident accident 00:00: Luisito walsh (disorder) (disorder) 00 Resolved 11/23/2013 Problem 12/09/2022 Medical Group,[facility], [facility], [place],[facility] History of Past Illness Condition Condition Condition Status Onset Resolution Last Treating Co mments Source Name Details Category Date Date Treatment Clinician Date End stage End stage Problem 2018-092019-08-22 2019-08-22 Memoria renal renal 10-20 22:46:11 22:46:11 l disease disease 18:00: Momo 08/20/2019 00 08/22/[address] [facility], [facility], [place] Suicidal Suicidal Problem 2018-092019-08-22 2019-08-22 Memoria ideations ideations 10-20 22:46:11 22:46:11 l 08/20/2019 18:00: Luisito walsh 08/22/2019 00 [place] Encounter Problem 2019-04-13 2019-04-13 Memoria for Encounter 10-02 12:31:49 12:31:49 l screening for 05:06: Momo for screening 02 malignant for neoplasm malignant of colon neoplasm of colon 10/02/2018 04/13/2019 [place] Other Other Problem 2017-092019-03-11 2019-03-11 M emoria symptoms symptoms 10-30 11:15:31 11:15:31 l and signs and signs 11:35: Herm elidia involving involving 10 cognitive cognitive functions functions following following cerebral cerebral infarction infarction 8 03/11/2019 [facility] Hypotensio Hypotensi Problem 2017-092019-02-14 2019-02-14 Mathieu walsh, on, 10-01 11:52:48 11:52:48 l unspecifie unspecifie 04:15: Mingo elias d d 02 08/01/2018 02/14/2019 [place] Poisoning Poisoning Problem 2017-092019-02-14 2019-02-14 Memoria by by 0-30 11:52:48 11:52:48 l unspecifie unspecifie 05:00: He curt d drugs, d drugs, 00 medicament medicament s and s and biological biological substances substances , , accidental accidental (unintenti (unintenti onal), onal), initial initial encounter encounter 07/28/2018 02/14/2019 [place] Stenosis Stenosis Problem 2018-04-09 2018-04-09 Memoria of of 01-21 14:34:12 14:34:12 l vascular vascular 03:32: Luisito walsh prosthetic prosthetic 44 devices, devices, implants implants and and grafts, grafts, initial initial encounter encounter 01/21/2018 04/09/2018 [place] Essential Problem 2017-2018-02-27 2018-02-27 Memoria (primary) Essential 02-24 02:54:03 02:54:03 l hypertensi (primary) 05:00: Her bertrand on hypertensi 00 on 02/24/2018 02/27/2018 [place] Pain in Pain in Problem 2018-02-06 2018-02-06 Memoria unspecifie unspecifie 01-27 01:28:35 01:28:35 l d knee d knee 05:00: Momo 01/27/2018 00 02/06/[address] [facility] Unspecifie Unspecifi Problem 2017-05-12 2017-05-12 Memoria d ed 8- 05:31:02 05:31:02 l complicati complicati 05:00: He curt on of on of 00 cardiac cardiac and and vascular vascular prosthetic prosthetic device, device, implant implant and graft, and graft, initial initial encounter encounter 05/09/2017 05/12/2017 [place] Allergies, Adverse Reactions, Alerts Allergy Allergy Status Severity Reaction(s) Onset Inactive Treating Comm ents Source Name Type Date Date Clinician Martín Propensi Active Rash No Univer s h ty to 03-27 allergy ity of Derived adverse 00:00: to iodine [place] reaction 00 per Medical s patient Branch SHELLFIS DRUG Active Rash Univers H INGREDI 03-27 ity of DERIVED 00:00: [place] 00 Medical Branch [facility] shells Active Memori a h h l Momo No Known No Known Active Memori a Medicati Medicati l on on Momo Carmona s s Social History Social Habit Start Date Stop Date Quantity Comments Source Exposure to 2022-11-22 2022-12-02 Not sure [facility] SARS-CoV-2 (event) 00:00:00 11:38:00 Medica l Branch Social History 2018-07-28 2018-07-28 [facility] Prasanna marlow 18:58:22 18:58:22 Sex Ass[birth year] At [birth year] [facility] 00:00:00 00:00:00 Medical Branch Smoking Status Start Date Stop Date Source Tobacco smoking [facility] xa consumption unknown Medical Bran Tobacco smoking [...] 30 tab, 0 coated Refill(s), tablet Pharmacy: [facility] #[id number], 170.18, cm, 12/02/22 20:25:00 ICE CARVER, Height, 91.364, kg, 12/02/22 20:25:00 ICE CAR[place], Weight Vitamin C Yes 500 mg = 1 Me moria 500 mg oral 3-18 tab, PO, l tablet 16:56: Daily, # Momo 00 30 tab, 0 Refill(s), Pharmacy: [id number], 170.18, cm, 12/02/22 20:25:00 ICE CARVER, Height, 91.364, kg, 12/02/22 20:25:00 ICE CARVER, Weight ferrous Yes 325 mg = 1 [place] j[place] sulfate 325 3-18 tab, PO, l mg oral 16:56: Daily, # Luisito n enteric 00 30 tab, 0 coated Refill(s), tablet Pharmacy: [id number], 170.18, cm, 12/02/22 20:25:00 ICE CARVER, Height, 91.364, kg, 12/02/22 20:25:00 ICE CAR[place], Weight Vitamin C Yes 500 mg = 1 Me moria 500 mg oral 3-18 tab, PO, l tablet 16:56: Daily, # Momo 00 30 tab, 0 Refill(s), Pharmacy: [id number], 170.18, cm, 12/02/22 20:25:00 ICE CARVER, Height, 91.364, kg, 12/02/22 20:25:00 ICE CARVER, Weight ferrous 3-0 Yes 325 mg = 1 [place] j[place] sulfate 325 3-18 tab, PO, l mg oral 16:56: Daily, # Luisito n enteric 00 30 tab, 0 coated Refill(s), tablet Pharmacy: [facility] #[id number], 170.18, cm, 12/02/22 20:25:00 ICE CARVER, Height, 91.364, kg, 12/02/22 20:25:00 ICE CARVER, Weight Vitamin C 2022-0 Yes 500 mg = 1 Me moria 500 mg oral 3-18 tab, PO, l tablet 16:56: Daily, # Weston 00 30 tab, 0 Refill(s), Pharmacy: [facility] #[id number], 170.18, cm, 12/02/22 20:25:00 ICE CARVER, Height, 91.364, kg, 12/02/22 20:25:00 ICE CARVER, Weight Tylenol 3-0 Yes 1 tab, PO, [place] jessi with 3-18 Q6H, PRN l Codeine #3 16:46: Pain, not He rmann oral tablet 00 to exceed 4000 mg acetaminop hen per day, X 4 day, # 20 tab, 0 Refill(s), Pharmacy: [facility] #[id number], 170.18, cm, 12/02/22 20:25:00 ICE CARVER, Height, 91.364, kg, 12/02/22 20:25:00 ICE CARVER, Weight Tylenol 3-0 Yes 1 tab, PO, [place] jessi with 3-18 Q6H, PRN l Codeine #3 16:46: Pain, not He rmann oral tablet 00 to exceed 4000 mg acetaminop hen per day, X 4 day, # 20 tab, 0 Refill(s), Pharmacy: [id number], 170.18, cm, 12/02/22 20:25:00 ICE CARVER, Height, 91.364, kg, 12/02/22 20:25:00 ICE CARVER, Weight Tylenol 0 Yes 1 tab, PO, [place] jessi with 3-18 Q6H, PRN l Codeine #3 16:46: Pain, not He rmann oral tablet 00 to exceed 4000 mg acetaminop hen per day, X 4 day, # 20 tab, 0 Refill(s), Pharmacy: [id number], 170.18, cm, 12/02/22 20:25:00 ICE CARVER, Height, 91.364, kg, 12/02/22 20:25:00 ICE CARVER, Weight aspirin 81 2022-0 Yes 81 mg = 1 Me moria mg tablet, 3-18 tab, PO, l enteric 16:45: Daily, # Luisito n coated 00 90 tab, 3 Refill(s), Pharmacy: [id number], 170.18, cm, 12/02/22 20:25:00 ICE CARVER, Height, 91.364, kg, 12/02/22 20:25:00 ICE CARVER, Weight atorvastati 0 Yes 40 mg = 1 M emoria n 40 mg 3-18 tab, PO, l oral tablet 16:45: Bedtime, # Weston 00 30 tab, 0 Refill(s), Pharmacy: [id number], 170.18, cm, 12/02/22 20:25:00 ICE CARVER, Height, 91.364, kg, 12/02/22 20:25:00 ICE CARVER, Weight aspirin 81 2022-0 Yes 81 mg = 1 Me moria mg tablet, 3-18 tab, PO, l enteric 16:45: Daily, # Luisito n coated 00 90 tab, 3 Refill(s), Pharmacy: [facility] #[id number], 170.18, cm, 12/02/22 20:25:00 ICE CARVER, Height, 91.364, kg, 12/02/22 20:25:00 ICE CARVER, Weight atorvastati 2022-0 Yes 40 mg = 1 M emoria n 40 mg 3-18 tab, PO, l oral tablet 16:45: Bedtime, # Weston 00 30 tab, 0 Refill(s), Pharmacy: [id number], 170.18, cm, 12/02/22 20:25:00 ICE CARVER, Height, 91.364, kg, 12/02/22 20:25:00 ICE CARVER, Weight aspirin 81 2022-0 Yes 81 mg = 1 Me moria mg tablet, 3-18 tab, PO, l enteric 16:45: Daily, # Luisito n coated 00 90 tab, 3 Refill(s), Pharmacy: [id number], 170.18, cm, 12/02/22 20:25:00 ICE CARVER, Height, 91.364, kg, 12/02/22 20:25:00 ICE CARVER, Weight atorvastati 2022-0 Yes 40 mg = 1 M emoria n 40 mg 3-18 tab, PO, l oral tablet 16:45: Bedtime, # Momo 00 30 tab, 0 Refill(s), Pharmacy: [facility] #[id number], 170.18, cm, 12/02/22 20:25:00 ICE CARVER, Height, 91.364, kg, 12/02/22 20:25:00 ICE CARVER, Weight midodrine 5 0 Yes 10 mg = 2 M emoria mg oral 3-18 tab, PO, l tablet 16:44: Q8Hnow, # Luisito n 00 180 tab, 0 Refill(s), Pharmacy: [id number], 170.18, cm, 12/02/22 20:25:00 ICE CARVER, Height, 91.364, kg, 12/02/22 20:25:00 ICE CARVER, Weight midodrine 5 0 Yes 10 mg = 2 M emoria mg oral 3-18 tab, PO, l tablet 16:44: Q8Hnow, # Luisito n 00 180 tab, 0 Refill(s), Pharmacy: [facility] #[id number], 170.18, cm, 12/02/22 20:25:00 ICE CARVER, Height, 91.364, kg, 12/02/22 20:25:00 ICE CARVER, Weight midodrine 5 0 Yes 10 mg = 2 M emoria mg oral 3-18 tab, PO, l tablet 16:44: Q8Hnow, # Luisito n 00 180 tab, 0 Refill(s), Pharmacy: [id number], 170.18, cm, 12/02/22 20:25:00 ICE CARVER, Height, 91.364, kg, 12/02/22 20:25:00 ICE CARVER, Weight [facility] 10 No Notes: Memor ia g oral 3-12 (Same as: l powder for 20:34: Lokelm a) Momo reconstitut 00 Mix with ion 45 mL water prior to administra tion Lokelma 10 No Notes: Memor ia g oral 3-12 (Same as: l powder for 20:34: Lokelm a) [place] reconstitut 00 Mix with ion 45 mL water prior to administra tion Lokelma 10 No Notes: Memor ia g oral 3-12 (Same as: l powder for 20:34: Lokelm a) [place]on reconstitut 00 Mix with ion 45 mL water prior to administra tion heparin Yes Notes: Memoria 3-10 porcine l 15:00: heparin Momo 00 heparin Yes Notes: Memoria 3-10 porcine l 15:00: heparin Momo heparin Yes Notes: Memoria 3-10 porcine l 15:00: heparin [place] 00 Lactated No 1,000 mL, [place] jessi Ringers 3-10 Rate: 125 l Injection 13:24: ml/hr, Luisito n IV 1,000 mL 00 Infuse over: 8 hr, Route: IV, Dosing Weight 91.364 kg, Total Volume: 1,000, Start date: 12/06/22 7:24:00 ICE CARVER, Duration: 30 day, Stop date: 01/05/23 7:23:00 CDT, BSA: 2.1 m2, 0 ANES No 10 mg, Memoria hydrALAZINE 3-10 Route: l 13:24: IVP, Momo 00 Q20Min, Dosing Weight 91.364, kg, PRN Elevated BP, Start date: 12/06/22 7:24:00 ICE CARVER, Duration: 2 doses or times, Stop date: Limited # of times ANES No 1,000 mg, Memoria acetaminoph 3-10 Route: PO, l en 13:24: Drug form: [place]on 00 TAB, ONCE, Dosing Weight 91.364, kg, Start date: 12/06/22 7:24:00 ICE CARVER, Stop date: 12/06/22 7:24:00 ICE CARVER ANES 2022-0 No 25 Memoria fentaNYL 3-10 microgram, l 13:24: Route: [place] 00 IVP, Q5Min, Dosing Weight 91.364, kg, PRN Pain Score 4-6, Priority: Routine, Start date: 12/06/22 7:24:00 ICE CARVER, Duration: 4 doses or times, Stop date: Limited # of times ANES 2022-0 No 0.5 mg, Memoria HYDROmorpho 3-10 Route: l ne 13:24: IVP, Momo 00 Q10Min, Dosing Weight 91.364, kg, PRN Pain Score 7-10, Start date: 12/06/22 7:24:00 ICE CARVER, Duration: 4 doses or times, Stop date: Limited # of times ANES 2022-0 No 0.2 mg, Memoria flumazenil 3-10 Route: l 13:24: IVP, PRN, [place] 00 Dosing Weight 91.364, kg, PRN Benzodiaze pine Reversal, Initial dose, Start date: 12/06/22 7:24:00 ICE CARVER, Duration: 30 day, Stop date: 01/05/23 8:23:00 CDT ANES 2022-0 No 0.4 mg, Memoria naloxone 3-10 Route: l 13:24: IVP, Momo 00 Q2MIN, Dosing Weight 91.364, kg, PRN Narcotic Reversal, Start date: 12/06/22 7:24:00 ICE CARVER, Duration: 8 doses or times, Stop date: Limited # of times ANES 2022-0 No 12.5 mg, Memoria diphenhydrA 3-10 Route: l MINE 13:24: IVP, Drug [place] 00 form: INJ, Q6H, Dosing Weight 91.364, kg, PRN Itching, Start date: 12/06/22 7:24:00 ICE CARVER, Duration: 30 day, Stop date: 01/05/23 7:23:00 CDT ANES 3-0 No 5 mg, Memoria ePHEDrine 3-10 Route: l 13:24: IVP, [place] 00 Q5Min, Dosing Weight 91.364, kg, PRN Low Blood Pressure, Start date: 12/06/22 7:24:00 ICE CARVER, Duration: 30 day, Stop date: 01/05/23 8:23:00 CDT ANES 3-0 No 2.49 mg, Memoria albuterol 3-10 Route: l 0.083% 13:24: NEB, Momo inhalation 00 Q20Min, solution Dosing Weight 91.364, kg, PRN Wheezing, Start date: 12/06/22 7:24:00 ICE CARVER, Duration: 30 day, Stop date: 01/05/23 8:23:00 CDT ANES 2022-0 No 4 mg, Memoria ondansetron 3-10 Route: l 13:24: IVP, ONCE, Momo 00 Dosing Weight 91.364, kg, PRN Nausea & Vomiting, Start date: 12/06/22 7:24:00 ICE CARVER Lactated 2022-0 No 1,000 mL, [place] jessi Ringers 3-10 Rate: 125 l Injection 13:24: ml/hr, Luisito n IV 1,000 mL 00 Infuse over: 8 hr, Route: IV, Dosing Weight 91.364 kg, Total Volume: 1,000, Start date: 12/06/22 7:24:00 ICE CARVER, Duration: 30 day, Stop date: 01/05/23 7:23:00 CDT, BSA: 2.1 m2, 0 ANES 2022-0 No 10 mg, Memoria hydrALAZINE 3-10 Route: l 13:24: IVP, Momo 00 Q20Min, Dosing Weight 91.364, kg, PRN Elevated BP, Start date: 12/06/22 7:24:00 ICE CARVER, Duration: 2 doses or times, Stop date: Limited # of times ANES 3-0 No 1,000 mg, Memoria acetaminoph 3-10 Route: PO, l en 13:24: Drug form: Momo 00 TAB, ONCE, Dosing Weight 91.364, kg, Start date: 12/06/22 7:24:00 ICE CARVER, Stop date: 12/06/22 7:24:00 ICE CARVER ANES 2022-0 No 25 Memoria fentaNYL 3-10 microgram, l 13:24: Route: Momo 00 IVP, Q5Min, Dosing Weight 91.364, kg, PRN Pain Score 4-6, Priority: Routine, Start date: 12/06/22 7:24:00 ICE CARVER, Duration: 4 doses or times, Stop date: Limited # of times ANES 3-0 No 0.5 mg, Memoria HYDROmorpho 3-10 Route: l ne 13:24: IVP, Momo 00 Q10Min, Dosing Weight 91.364, kg, PRN Pain Score 7-10, Start date: 12/06/22 7:24:00 ICE CARVER, Duration: 4 doses or times, Stop date: Limited # of times ANES 2022-0 No 0.2 mg, Memoria flumazenil 3-10 Route: l 13:24: IVP, PRN, Momo 00 Dosing Weight 91.364, kg, PRN Benzodiaze pine Reversal, Initial dose, Start date: 12/06/22 7:24:00 ICE CARVER, Duration: 30 day, Stop date: 01/05/23 8:23:00 CDT ANES 2022-0 No 0.4 mg, Memoria naloxone 3-10 Route: l 13:24: IVP, [place] 00 Q2MIN, Dosing Weight 91.364, kg, PRN Narcotic Reversal, Start date: 12/06/22 7:24:00 ICE CARVER, Duration: 8 doses or times, Stop date: Limited # of times ANES 2022-0 No 12.5 mg, Memoria diphenhydrA 3-10 Route: l MINE 13:24: IVP, Drug Momo 00 form: INJ, Q6H, Dosing Weight 91.364, kg, PRN Itching, Start date: 12/06/22 7:24:00 ICE CARVER, Duration: 30 day, Stop date: 01/05/23 7:23:00 CDT ANES 3-0 No 5 mg, Memoria ePHEDrine 3-10 Route: l 13:24: IVP, Momo 00 Q5Min, Dosing Weight 91.364, kg, PRN Low Blood Pressure, Start date: 12/06/22 7:24:00 ICE CARVER, Duration: 30 day, Stop date: 01/05/23 8:23:00 CDT ANES 3-0 No 2.49 mg, Memoria albuterol 3-10 Route: l 0.083% 13:24: NEB, Momo inhalation 00 Q20Min, solution Dosing Weight 91.364, kg, PRN Wheezing, Start date: 12/06/22 7:24:00 ICE CARVER, Duration: 30 day, Stop date: 01/05/23 8:23:00 CDT ANES 2022-0 No 4 mg, Memoria ondansetron 3-10 Route: l 13:24: IVP, ONCE, [place] 00 Dosing Weight 91.364, kg, PRN Nausea & Vomiting, Start date: 12/06/22 7:24:00 ICE CARVER Lactated 2022-0 No 1,000 mL, [place] jessi Ringers 3-10 Rate: 125 l Injection 13:24: ml/hr, Luisito n IV 1,000 mL 00 Infuse over: 8 hr, Route: IV, Dosing Weight 91.364 kg, Total Volume: 1,000, Start date: 12/06/22 7:24:00 ICE CARVER, Duration: 30 day, Stop date: 01/05/23 7:23:00 CDT, BSA: 2.1 m2, 0 ANES 2022-0 No 10 mg, Memoria hydrALAZINE 3-10 Route: l 13:24: IVP, Momo 00 Q20Min, Dosing Weight 91.364, kg, PRN Elevated BP, Start date: 12/06/22 7:24:00 ICE CARVER, Duration: 2 doses or times, Stop date: Limited # of times ANES 2022-0 No 1,000 mg, Memoria acetaminoph 3-10 Route: PO, l en 13:24: Drug form: [place]on 00 TAB, ONCE, Dosing Weight 91.364, kg, Start date: 12/06/22 7:24:00 ICE CARVER, Stop date: 12/06/22 7:24:00 ICE CARVER ANES 2022-0 No 25 Memoria fentaNYL 3-10 microgram, l 13:24: Route: Momo 00 IVP, Q5Min, Dosing Weight 91.364, kg, PRN Pain Score 4-6, Priority: Routine, Start date: 12/06/22 7:24:00 ICE CARVER, Duration: 4 doses or times, Stop date: Limited # of times ANES 2022-0 No 0.5 mg, Memoria HYDROmorpho 3-10 Route: l ne 13:24: IVP, Momo 00 Q10Min, Dosing Weight 91.364, kg, PRN Pain Score 7-10, Start date: 12/06/22 7:24:00 ICE CARVER, Duration: 4 doses or times, Stop date: Limited # of times ANES 3-0 No 0.2 mg, Memoria flumazenil 3-10 Route: l 13:24: IVP, PRN, Momo 00 Dosing Weight 91.364, kg, PRN Benzodiaze pine Reversal, Initial dose, Start date: 12/06/22 7:24:00 ICE CARVER, Duration: 30 day, Stop date: 01/05/23 8:23:00 CDT ANES 3-0 No 0.4 mg, Memoria naloxone 3-10 Route: l 13:24: IVP, [place] 00 Q2MIN, Dosing Weight 91.364, kg, PRN Narcotic Reversal, Start date: 12/06/22 7:24:00 ICE CARVER, Duration: 8 doses or times, Stop date: Limited # of times ANES 3-0 No 12.5 mg, Memoria diphenhydrA 3-10 Route: l MINE 13:24: IVP, Drug [place]on 00 form: INJ, Q6H, Dosing Weight 91.364, kg, PRN Itching, Start date: 12/06/22 7:24:00 ICE CARVER, Duration: 30 day, Stop date: 01/05/23 7:23:00 CDT ANES 3-0 No 5 mg, Memoria ePHEDrine 3-10 Route: l 13:24: IVP, Momo 00 Q5Min, Dosing Weight 91.364, kg, PRN Low Blood Pressure, Start date: 12/06/22 7:24:00 ICE CARVER, Duration: 30 day, Stop date: 01/05/23 8:23:00 CDT ANES 3-0 No 2.49 mg, Memoria albuterol 3-10 Route: l 0.083% 13:24: NEB, [place]on inhalation 00 Q20Min, solution Dosing Weight 91.364, kg, PRN Wheezing, Start date: 12/06/22 7:24:00 ICE CARVER, Duration: 30 day, Stop date: 01/05/23 8:23:00 CDT ANES 2023-0 No 4 mg, Memoria ondansetron 3-10 Route: l 13:24: IVP, ONCE, [place] 00 Dosing Weight 91.364, kg, PRN Nausea & Vomiting, Start date: 12/06/22 7:24:00 ICE CARVER ceFAZolin 0 No Route: IV, Me moria (ANES) 3-10 Drug form: l 13:12: INJ, ONCE, Stop date: 12/06/22 7:12:00 ICE CARVER ondansetron No Route: IV, Memoria (ANES) 3-10 Drug form: l 13:12: INJ, ONCE, Stop date: 12/06/22 7:12:00 ICE CARVER dexamethaso No Route: IV, Memoria ne (ANES) 3-10 Drug form: l 13:12: INJ, ONCE, Stop date: 12/06/22 7:12:00 ICE CARVER phenylephri No Route: IV, Memoria ne (ANES) 3-10 Drug form: l 13:12: INJ, ONCE, Stop date: 12/06/22 7:12:00 ICE CARVER fentaNYL 2022-0 No Route: IV, Mem oria (ANES) 3-10 Drug form: l 13:12: INJ, ONCE, Stop date: 12/06/22 7:12:00 ICE CARVER propofol 2022-0 No Route: IV, Mem oria (ANES) 3-10 Drug form: l 13:12: INJ, ONCE, Stop date: 12/06/22 7:12:00 ICE CARVER lidocaine 2022-0 No Route: IV, Me moria (ANES) 3-10 Drug form: l 13:12: INJ, ONCE, Stop date: 12/06/22 7:12:00 ICE CARVER Insulin 2022-0 No Route: IV, T[place] jessi regular 3-10 Drug form: l (ANES) 13:12: INJ, ONCE, Joanna Stop date: 12/06/22 7:12:00 ICE CARVER ceFAZolin 0 No Route: IV, Me moria (ANES) 3-10 Drug form: l 13:12: INJ, ONCE, Stop date: 12/06/22 7:12:00 ICE CARVER ondansetron 0 No Route: IV, Memoria (ANES) 3-10 Drug form: l 13:12: INJ, ONCE, Stop date: 12/06/22 7:12:00 ICE CARVER dexamethaso 2022-0 No Route: IV, Memoria ne (ANES) 3-10 Drug form: l 13:12: INJ, ONCE, Stop date: 12/06/22 7:12:00 ICE CARVER phenylephri 2022-0 No Route: IV, Memoria ne (ANES) 3-10 Drug form: l 13:12: INJ, ONCE, Stop date: 12/06/22 7:12:00 ICE CARVER fentaNYL 2022-0 No Route: IV, Mem oria (ANES) 3-10 Drug form: l 13:12: INJ, ONCE, Stop date: 12/06/22 7:12:00 ICE CARVER propofol 2022-0 No Route: IV, Mem oria (ANES) 3-10 Drug form: l 13:12: INJ, ONCE, Stop date: 12/06/22 7:12:00 ICE CARVER lidocaine 2022-0 No Route: IV, Me moria (ANES) 3-10 Drug form: l 13:12: INJ, ONCE, Stop date: 12/06/22 7:12:00 ICE CARVER Insulin 2022-0 No Route: IV, T[place] jessi regular 3-10 Drug form: l (ANES) 13:12: INJ, ONCE, Joanna Stop date: 12/06/22 7:12:00 ICE CARVER ceFAZolin 0 No Route: IV, Me moria (ANES) 3-10 Drug form: l 13:12: INJ, ONCE, Stop date: 12/06/22 7:12:00 ICE CARVER ondansetron 0 No Route: IV, Memoria (ANES) 3-10 Drug form: l 13:12: INJ, ONCE, Stop date: 12/06/22 7:12:00 ICE CARVER dexamethaso 2022-0 No Route: IV, Memoria ne (ANES) 3-10 Drug form: l 13:12: INJ, ONCE, Stop date: 12/06/22 7:12:00 ICE CARVER phenylephri 0 No Route: IV, Memoria ne (ANES) 3-10 Drug form: l 13:12: INJ, ONCE, Momo 00 Stop date: 12/06/22 7:12:00 ICE CARVER fentaNYL 2023-0 No Route: IV, Mem oria (ANES) 3-10 Drug form: l 13:12: INJ, ONCE, Momo 00 Stop date: 12/06/22 7:12:00 ICE CARVER propofol 3-0 No Route: IV, Mem oria (ANES) 3-10 Drug form: l 13:12: INJ, ONCE, Stop date: 12/06/22 7:12:00 ICE CARVER lidocaine 2022-0 No Route: IV, Me moria (ANES) 3-10 Drug form: l 13:12: INJ, ONCE, Stop date: 12/06/22 7:12:00 ICE CARVER Insulin 3-0 No Route: IV, T[place] jessi regular 3-10 Drug form: l (ANES) 13:12: INJ, ONCE, Joanna Stop date: 12/06/22 7:12:00 ICE CARVER Sodium 2022-0 No Route: IV, Memor ia Chloride 3-10 Total l 0.9% IV 12:29: Volume: Weston (ANES) 500 00 500, Start mL date: 12/06/22 6:29:00 ICE CARVER, Stop date: 12/06/22 7:29:00 ICE CARVER Dextrose 3-0 No Route: IV, Mem oria 10% in 3-10 Total l Water IV 12:29: Volume: Luisito n (ANES) 250 00 250, Start mL date: 12/06/22 6:29:00 ICE CARVER, Stop date: 12/06/22 7:29:00 ICE CARVER Sodium 3-0 No Route: IV, Memor ia Chloride 3-10 Total l 0.9% IV 12:29: Volume: Weston (ANES) 500 00 500, Start mL date: 12/06/22 6:29:00 ICE CARVER, Stop date: 12/06/22 7:29:00 ICE CARVER Dextrose 2023-0 No Route: IV, Mem oria 10% in 3-10 Total l Water IV 12:29: Volume: Luisito n (ANES) 250 00 250, Start mL date: 12/06/22 6:29:00 ICE CARVER, Stop date: 12/06/22 7:29:00 ICE CARVER Sodium 3-0 No Route: IV, Memor ia Chloride 3-10 Total l 0.9% IV 12:29: Volume: Weston (ANES) 500 00 500, Start mL date: 12/06/22 6:29:00 ICE CARVER, Stop date: 12/06/22 7:29:00 ICE CARVER Dextrose 3-0 No Route: IV, Mem oria 10% in 3-10 Total l Water IV 12:29: Volume: Luisito n (ANES) 250 00 250, Start mL date: 12/06/22 6:29:00 ICE CARVER, Stop date: 12/06/22 7:29:00 ICE CARVER Lokelma 5 g 2022-0 Yes Notes: Tico jessi oral powder 3-09 (Same as: l for 18:00: Lokelma) Weston reconstitut 00 Mix with ion 45 mL water prior to administra tion Lokelma 5 g 2022-0 Yes Notes: Tico jessi oral powder 3-09 (Same as: l for 18:00: Lokelma) Momo reconstitut 00 Mix with ion 45 mL water prior to administra tion Lokelma 5 g 2022-0 Yes Notes: Tico jessi oral powder 3-09 (Same as: l for 18:00: Lokelma) Weston reconstitut 00 Mix with ion 45 mL water prior to administra tion amLODIPine 3-0 Yes Notes: Memor ia 3-09 (Same as: l 03:30: Norvasc) Weston 00 amLODIPine 2022-0 Yes Notes: Memor ia 3-09 (Same as: l 03:30: Norvasc) Weston 00 amLODIPine 2022-0 Yes Notes: Memor ia 3-09 (Same as: l 03:30: Norvasc) Weston 00 [place] 5/325 2022-0 Yes Notes: Tico jessi oral tablet 3-09 (Same as: l 03:23: [place] Weston 00 325/5) Do not exceed 4gm/day of acetaminop hen. [place] 5/325 2022-0 Yes Notes: Tico jessi oral tablet 3-09 (Same as: l 03:23: [place] Weston 00 325/5) Do not exceed 4gm/day of acetaminop hen. [place] 5/325 3-0 Yes Notes: Tico jessi oral tablet 3-09 (Same as: l 03:23: [place] Momo 00 325/5) Do not exceed 4gm/day of acetaminop hen. amLODIPine 2022-0 No 10 mg, 1 Mem oria 3-08 tab, l 15:00: Route: PO, Weston 00 Drug form: TAB, Daily, Dosing Weight 91.364, kg, Start date: 12/04/22 9:00:00 ICE CARVER, Duration: 30 day, Stop date: 01/02/23 9:00:00 CDT amLODIPine 2022-0 No 10 mg, 1 Mem oria 3-08 tab, l 15:00: Route: PO, Momo 00 Drug form: TAB, Daily, Dosing Weight 91.364, kg, Start date: 12/04/22 9:00:00 ICE CARVER, Duration: 30 day, Stop date: 01/02/23 9:00:00 CDT amLODIPine 2022-0 No 10 mg, 1 Mem oria 3-08 tab, l 15:00: Route: PO, Drug form: TAB, Daily, Dosing Weight 91.364, kg, Start date: 12/04/22 9:00:00 ICE CARVER, Duration: 30 day, Stop date: 01/02/23 9:00:00 CDT ANES 2022-0 No 1,000 mg, Memoria acetaminoph 3-08 Route: PO, l en 00:36: Drug form: [place]on 00 TAB, ONCE, Dosing Weight 91.364, kg, Start date: 12/03/22 18:36:00 ICE CARVER, Stop date: 12/03/22 18:36:00 ICE CARVER ANES 3-0 No 5 mg, Memoria oxyCODONE 5 3-08 Route: PO, l mg 00:36: Drug form: Weston immediate 00 TAB, Q4H, release Dosing tablet Weight 91.364, kg, PRN Pain Score 4-6, Start date: 12/03/22 18:36:00 ICE CARVER, Duration: 30 day, Stop date: 01/02/23 18:35:00 CDT ANES 3-0 No 0.5 mg, Memoria HYDROmorpho 3-08 Route: l ne 00:36: IVP, Momo 00 Q10Min, Dosing Weight 91.364, kg, PRN Pain Score 7-10, Start date: 12/03/22 18:36:00 ICE CARVER, Duration: 4 doses or times, Stop date: Limited # of times ANES 3-0 No 0.2 mg, Memoria flumazenil 3-08 Route: l 00:36: IVP, PRN, Momo 00 Dosing Weight 91.364, kg, PRN Benzodiaze pine Reversal, Initial dose, Start date: 12/03/22 18:36:00 ICE CARVER, Duration: 30 day, Stop date: 01/02/23 19:35:00 CDT ANES 3-0 No 0.4 mg, Memoria naloxone 3-08 Route: l 00:36: IVP, Momo 00 Q2MIN, Dosing Weight 91.364, kg, PRN Narcotic Reversal, Start date: 12/03/22 18:36:00 ICE CARVER, Duration: 8 doses or times, Stop date: Limited # of times ANES 3-0 No 1,000 mg, Memoria acetaminoph 3-08 Route: PO, l en 00:36: Drug form: Momo 00 TAB, ONCE, Dosing Weight 91.364, kg, Start date: 12/03/22 18:36:00 ICE CARVER, Stop date: 12/03/22 18:36:00 ICE CARVER ANES 3-0 No 5 mg, Memoria oxyCODONE 5 3-08 Route: PO, l mg 00:36: Drug form: Weston immediate 00 TAB, Q4H, release Dosing tablet Weight 91.364, kg, PRN Pain Score 4-6, Start date: 12/03/22 18:36:00 ICE CARVER, Duration: 30 day, Stop date: 01/02/23 18:35:00 CDT ANES 3-0 No 0.5 mg, Memoria HYDROmorpho 3-08 Route: l ne 00:36: IVP, Momo 00 Q10Min, Dosing Weight 91.364, kg, PRN Pain Score 7-10, Start date: 12/03/22 18:36:00 ICE CARVER, Duration: 4 doses or times, Stop date: Limited # of times ANES 3-0 No 0.2 mg, Memoria flumazenil 3-08 Route: l 00:36: IVP, PRN, Mmoo Dosing Weight 91.364, kg, PRN Benzodiaze pine Reversal, Initial dose, Start date: 12/03/22 18:36:00 ICE CARVER, Duration: 30 day, Stop date: 01/02/23 19:35:00 CDT ANES 3-0 No 0.4 mg, Memoria naloxone 3-08 Route: l 00:36: IVP, Momo 00 Q2MIN, Dosing Weight 91.364, kg, PRN Narcotic Reversal, Start date: 12/03/22 18:36:00 ICE CARVER, Duration: 8 doses or times, Stop date: Limited # of times ANES 3-0 No 4 mg, Memoria ondansetron 3-08 Route: l 00:36: IVP, ONCE, Momo 00 Dosing Weight 91.364, kg, PRN Nausea & Vomiting, Start date: 12/03/22 18:36:00 ICE CARVER ANES 3-0 No 4 mg, Memoria ondansetron 3-08 Route: l 00:36: IVP, ONCE, [place]on 00 Dosing Weight 91.364, kg, PRN Nausea & Vomiting, Start date: 12/03/22 18:36:00 ICE CARVER ANES 3-0 No 1,000 mg, Memoria acetaminoph 3-08 Route: PO, l en 00:36: Drug form: Momo 00 TAB, ONCE, Dosing Weight 91.364, kg, Start date: 12/03/22 18:36:00 ICE CARVER, Stop date: 12/03/22 18:36:00 ICE CARVER ANES 3-0 No 5 mg, Memoria oxyCODONE 5 3-08 Route: PO, l mg 00:36: Drug form: Weston immediate 00 TAB, Q4H, release Dosing tablet Weight 91.364, kg, PRN Pain Score 4-6, Start date: 12/03/22 18:36:00 ICE CARVER, Duration: 30 day, Stop date: 01/02/23 18:35:00 CDT ANES 3-0 No 0.5 mg, Memoria HYDROmorpho 3-08 Route: l ne 00:36: IVP, Momo 00 Q10Min, Dosing Weight 91.364, kg, PRN Pain Score 7-10, Start date: 12/03/22 18:36:00 ICE CARVER, Duration: 4 doses or times, Stop date: Limited # of times ANES 2022-0 No 0.2 mg, Memoria flumazenil 3 Route: l 00:36: IVP, PRN, [place]on 00 Dosing Weight 91.364, kg, PRN Benzodiaze pine Reversal, Initial dose, Start date: 12/03/22 18:36:00 ICE CARVER, Duration: 30 day, Stop date: 01/02/23 19:35:00 CDT ANES 2022-0 No 0.4 mg, Memoria naloxone 12-04 Route: l 00:36: IVP, [place]on 00 Q2MIN, Dosing Weight 91.364, kg, PRN Narcotic Reversal, Start date: 12/03/22 18:36:00 ICE CARVER, Duration: 8 doses or times, Stop date: Limited # of times ANES 2022-0 No 4 mg, Memoria ondansetron 12-04 Route: l 00:36: IVP, ONCE, Weston Dosing Weight 91.364, kg, PRN Nausea & Vomiting, Start date: 12/03/22 18:36:00 ICE CARVER Sodium 3-0 No Route: IV, Memor ia Chloride 3-07 Total l 0.9% IV 23:53: Volume: Weston (ANES) 1000 00 1,000, mL Start date: 12/03/22 17:53:00 ICE CARVER, Stop date: 12/03/22 18:53:00 ICE CARVER Sodium 2023-0 No Route: IV, Memor ia Chloride 3-07 Total l 0.9% IV 23:53: Volume: Momo (ANES) 1000 00 1,000, mL Start date: 12/03/22 17:53:00 ICE CARVER, Stop date: 12/03/22 18:53:00 ICE CARVER Sodium 2023-0 No Route: IV, Memor ia Chloride 3-07 Total l 0.9% IV 23:53: Volume: Weston (ANES) 1000 00 1,000, mL Start date: 12/03/22 17:53:00 ICE CARVER, Stop date: 12/03/22 18:53:00 ICE CARVER fentaNYL 3-0 No Route: IV, Mem oria (ANES) 3-07 Drug form: l 23:52: INJ, ONCE, Stop date: 12/03/22 17:52:00 ICE CARVER propofol 2023-0 No Route: IV, Mem oria (ANES) 3- Drug form: l 23:52: INJ, ONCE, Stop date: 12/03/22 17:52:00 ICE CARVER ceFAZolin 3-0 No Route: IV, Me moria (ANES) 3- Drug form: l 23:52: INJ, ONCE, Stop date: 12/03/22 17:52:00 ICE CARVER ondansetron 2022-0 No Route: IV, Memoria (ANES) 3- Drug form: l 23:52: INJ, ONCE, Stop date: 12/03/22 17:52:00 ICE CARVER fentaNYL 3-0 No Route: IV, Mem oria (ANES) 3- Drug form: l 23:52: INJ, ONCE, Stop date: 12/03/22 17:52:00 ICE CARVER propofol 3-0 No Route: IV, Mem oria (ANES) 3- Drug form: l 23:52: INJ, ONCE, Stop date: 12/03/22 17:52:00 ICE CARVER ceFAZolin 2022-0 No Route: IV, Me moria (ANES) 3- Drug form: l 23:52: INJ, ONCE, Stop date: 12/03/22 17:52:00 ICE CARVER ondansetron 2022-0 No Route: IV, Memoria (ANES) 3- Drug form: l 23:52: INJ, ONCE, Stop date: 12/03/22 17:52:00 ICE CARVER fentaNYL 3-0 No Route: IV, Mem oria (ANES) 3- Drug form: l 23:52: INJ, ONCE, Stop date: 12/03/22 17:52:00 ICE CARVER propofol 2023-0 No Route: IV, Mem oria (ANES) 3- Drug form: l 23:52: INJ, ONCE, Stop date: 12/03/22 17:52:00 ICE CARVER ceFAZolin 2022-0 No Route: IV, Me moria (ANES) 3-07 Drug form: l 23:52: INJ, ONCE, Stop date: 12/03/22 17:52:00 ICE CARVER ondansetron 3-0 No Route: IV, Memoria (ANES) 3- Drug form: l 23:52: INJ, ONCE, Stop date: 12/03/22 17:52:00 ICE CARVER Lactated 3-0 No 1,000 mL, T[place] jessi Ringers 3-07 Rate: 75 l Injection 19:07: ml/hr, Luisito n IV 1,000 mL 00 Infuse over: 13.3 hr, Route: IV, Dosing Weight 91.364 kg, Total Volume: 1,000, Start date: 12/03/22 13:07:00 ICE CARVER, Duration: 1 day, Stop date: 12/04/22 13:06:00 ICE CARVER, BSA: 2.1 m2, 0 Sodium 2023-0 No 1,000 mL, Memori a Chloride 3-07 Rate: 75 l 0.9% IV 19:07: ml/hr, Weston 1,000 mL 00 Infuse over: 13.3 hr, Route: IV, Dosing Weight 91.364 kg, Total Volume: 1,000, Start date: 12/03/22 13:07:00 ICE CARVER, Duration: 1 day, Stop date: 12/04/22 13:06:00 ICE CARVER, BSA: 2.1 m2, 0 Lactated 2023-0 No 1,000 mL, [place] jessi Ringers 3-07 Rate: 75 l Injection 19:07: ml/hr, Luisito n IV 1,000 mL 00 Infuse over: 13.3 hr, Route: IV, Dosing Weight 91.364 kg, Total Volume: 1,000, Start date: 12/03/22 13:07:00 ICE CARVER, Duration: 1 day, Stop date: 12/04/22 13:06:00 ICE CARVER, BSA: 2.1 m2, 0 Sodium 2023-0 No 1,000 mL, Memori a Chloride 3-07 Rate: 75 l 0.9% IV 19:07: ml/hr, Weston 1,000 mL 00 Infuse over: 13.3 hr, Route: IV, Dosing Weight 91.364 kg, Total Volume: 1,000, Start date: 12/03/22 13:07:00 ICE CARVER, Duration: 1 day, Stop date: 12/04/22 13:06:00 ICE CARVER, BSA: 2.1 m2, 0 Lactated 2022-0 No 1,000 mL, [place] jessi Ringers 3-07 Rate: 75 l Injection 19:07: ml/hr, Luisito n IV 1,000 mL 00 Infuse over: 13.3 hr, Route: IV, Dosing Weight 91.364 kg, Total Volume: 1,000, Start date: 12/03/22 13:07:00 ICE CARVER, Duration: 1 day, Stop date: 12/04/22 13:06:00 ICE CARVER, BSA: 2.1 m2, 0 Sodium 2022-0 No 1,000 mL, Memori a Chloride 3-07 Rate: 75 l 0.9% IV 19:07: ml/hr, Momo 1,000 mL 00 Infuse over: 13.3 hr, Route: IV, Dosing Weight 91.364 kg, Total Volume: 1,000, Start date: 12/03/22 13:07:00 ICE CARVER, Duration: 1 day, Stop date: 12/04/22 13:06:00 ICE CARVER, BSA: 2.1 m2, 0 metoprolol 2022-0 Yes Notes: Memor ia tartrate 3-07 (Same as: l 15:00: Lopressor) [place]on metoprolol 2022-0 Yes Notes: Memor ia tartrate 3-07 (Same as: l 15:00: Lopressor) [place] metoprolol 2022-0 Yes Notes: Memor ia tartrate 3-07 (Same as: l 15:00: Lopressor) [place] Renvela 2022-0 Yes Notes: Memoria 3-07 Same as: l 14:00: Renvela [place] 00 Renvela 2022-0 Yes Notes: Memoria 3-07 Same as: l 14:00: Renvela Momo 00 Renvela 2022-0 Yes Notes: Memoria 3-07 Same as: l 14:00: Renvela [place] 00 [id number] 2022-0 Yes 250 mL, Memoria (bolus) IV 3-07 999 ml/hr, l 11:40: Route: IV, Momo 00 Drug Form: INJ, Dosing Weight 91.364, kg, PRN, PRN Blood Glucose Results, Start date: 12/03/22 5:40:00 ICE CARVER, Duration: 30 day, Stop date: 01/02/23 6:39:00 CDT, Infuse over: 0.3 hr, 0 [id number] 2023-0 Yes 250 mL, Memoria (bolus) IV 3-07 999 ml/hr, l 11:40: Route: IV, Momo 00 Drug Form: INJ, Dosing Weight 91.364, kg, PRN, PRN Blood Glucose Results, Start date: 12/03/22 5:40:00 ICE CARVER, Duration: 30 day, Stop date: 01/02/23 6:39:00 CDT, Infuse over: 0.3 hr, 0 D10W 2023-0 Yes 250 mL, Memoria (bolus) IV 3-07 999 ml/hr, l 11:40: Route: IV, [place] 00 Drug Form: INJ, Dosing Weight 91.364, kg, PRN, PRN Blood Glucose Results, Start date: 12/03/22 5:40:00 ICE CARVER, Duration: 30 day, Stop date: 01/02/23 6:39:00 CDT, Infuse over: 0.3 hr, 0 Dextrose 2023-0 No 25 mL, Memoria 50% Syringe 12-03 Route: l (D50W) 10:26: IVP, Dosing Weight 91.364, kg, PRN, PRN Blood Glucose Results, Start date: 12/03/22 4:26:00 ICE CARVER, Duration: 30 day, Stop date: 01/02/23 5:25:00 CDT glucagon 2023-0 Yes 1 mg, Memoria 3 Route: IM, l 10:26: Drug form: [place] PDR/INJ, PRN, Dosing Weight 91.364, kg, PRN Blood Glucose Results, Start date: 12/03/22 4:26:00 ICE CARVER, Duration: 30 day, Stop date: 01/02/23 5:25:00 CDT, 0 Dextrose 2023-0 No 25 mL, Memoria 50% Syringe 12-03 Route: l (D50W) 10:26: IVP, [place] 00 Dosing Weight 91.364, kg, PRN, PRN Blood Glucose Results, Start date: 12/03/22 4:26:00 ICE CARVER, Duration: 30 day, Stop date: 01/02/23 5:25:00 CDT glucagon 2023-0 Yes 1 mg, Memoria 307 Route: IM, l 10:26: Drug form: Momo 00 PDR/INJ, PRN, Dosing Weight 91.364, kg, PRN Blood Glucose Results, Start date: 12/03/22 4:26:00 ICE CARVER, Duration: 30 day, Stop date: 01/02/23 5:25:00 CDT, 0 Dextrose 2023-0 No 25 mL, Memoria 50% Syringe 12-03 Route: l (D50W) 10:26: IVP, Dosing Weight 91.364, kg, PRN, PRN Blood Glucose Results, Start date: 12/03/22 4:26:00 ICE CARVER, Duration: 30 day, Stop date: 01/02/23 5:25:00 CDT glucagon 2023-0 Yes 1 mg, Memoria 12-03 Route: IM, l 10:26: Drug form: PDR/INJ, PRN, Dosing Weight 91.364, kg, PRN Blood Glucose Results, Start date: 12/03/22 4:26:00 ICE CARVER, Duration: 30 day, Stop date: 01/02/23 5:25:00 CDT, 0 sevelamer 2021-0 Yes 800mg Take 800 Uni vers carbonate 6-29 mg by ity of (RENVELA 09:45: mouth. [place] ORAL) [address] [place] [address] metoprolol 0 Yes Take by Univ ers succinate 6-29 mouth. ity of 25 mg CSpX 09:45: [address] sevelamer 2021-0 Yes 800mg Take 800 Uni vers carbonate 6-29 mg by ity of ([place] 09:45: mouth. [place] [facility]) [address] [place] [address] metoprolol 2021-0 Yes Take by Univ ers succinate 6-29 mouth. ity of 25 mg CSpX 09:45: [address] propofol 2017-09 No Route: IV, Mem oria (ANES) 2- Drug form: l 14:09: INJ, ONCE, Stop date: 09/24/18 8:09:00 ICE CARVER propofol 2017- No Route: IV, Mem oria (ANES) 2- Drug form: l 14:09: INJ, ONCE, Stop date: 09/24/18 8:09:00 ICE CARVER propofol 2018- No Route: IV, Mem oria (ANES) 2-27 Drug form: l 14:09: INJ, ONCE, Momo Stop date: 09/24/18 8:09:00 ICE CARVER Sodium 2018- No Route: IV, Memor ia Chloride 2-27 Total l 0.9% IV 13:40: Volume: [place]on (ANES) 500 00 500, Start mL date: 09/24/18 7:40:00 ICE CARVER, Stop date: 09/24/18 8:40:00 ICE CARVER Sodium 2018- No Route: IV, Memor ia Chloride 2-27 Total l 0.9% IV 13:40: Volume: [place] (ANES) 500 00 500, Start mL date: 09/24/18 7:40:00 ICE CARVER, Stop date: 09/24/18 8:40:00 ICE CARVER Sodium 2017- No Route: IV, Memor ia Chloride 2-27 Total l 0.9% IV 13:40: Volume: Momo (ANES) 500 00 500, Start mL date: 09/24/18 7:40:00 ICE CARVER, Stop date: 09/24/18 8:40:00 ICE CARVER polyethylen 2017-09 No See Memori a e glycol - Instructio l 3350 with 20:43: ns, as Luisito n electrolyte 00 directed, s oral # 4,000 powder for mL, 0 solution Refill(s), Pharmacy: [id number], this is the generic of Golytely being used as a bowel prep, not Miralax polyethylen 2017-09 No See Memori a e glycol -27 Instructio l 3350 with 20:43: ns, as Luisito n electrolyte 00 directed, s oral # 4,000 powder for mL, 0 solution Refill(s), Pharmacy: [id number], this is the generic of Golytely being used as a bowel prep, not Miralax polyethylen 2017-09 No See Memori a e glycol 1-27 Instructio l 3350 with 20:43: ns, as Luisito n electrolyte 00 directed, s oral # 4,000 powder for mL, 0 solution Refill(s), Pharmacy: [id number], this is the generic of Golytely being used as a bowel prep, not Miralax losartan 50 2017-09 Yes 50 mg = 1 M emoria mg oral 1-27 tab, PO, l tablet 20:08: Daily, 0 [place] 00 Refill(s) losartan 50 2017-09 Yes 50 mg = 1 M emoria mg oral 1-27 tab, PO, l tablet 20:08: Daily, 0 [place] 00 Refill(s) losartan 50 2017-09 Yes 50 mg = 1 M emoria mg oral 1-27 tab, PO, l tablet 20:08: Daily, 0 [place] 00 Refill(s) Saline 2017-09 No Notes: Memoria Flush 0.9% 0-30 (Same as: l 17:40: BD [place] 00 Posiflush) Sodium 2017-09 No 500 mL, Memoria Chloride 0-30 500 ml/hr, l 0.9% 17:40: Infuse Momo (Bolus) IV 00 Over: 1 hr, Route: IV, 500, Drug form: INJ, ONCE, Priority: STAT, Dosing Weight 93.182 kg, Start date: 07/28/18 12:40:00 CDT, Stop date: 07/28/18 12:40:00 CDT Saline 2017-09 No Notes: Memoria Flush 0.9% 0-30 (Same as: l 17:40: BD Momo 00 Posiflush) Sodium 2017-09 No 500 mL, Memoria Chloride 0-30 500 ml/hr, l 0.9% 17:40: Infuse [place] (Bolus) IV 00 Over: 1 hr, Route: IV, 500, Drug form: INJ, ONCE, Priority: STAT, Dosing Weight 93.182 kg, Start date: 07/28/18 12:40:00 CDT, Stop date: 07/28/18 12:40:00 CDT Saline 2017-09 No Notes: Memoria Flush 0.9% 0-30 (Same as: l 17:40: BD [place] 00 Posiflush) Sodium 2017-09 No 500 mL, Memoria Chloride 0-30 500 ml/hr, l 0.9% 17:40: Infuse [place] (Bolus) IV 00 Over: 1 hr, Route: IV, 500, Drug form: INJ, ONCE, Priority: STAT, Dosing Weight 93.182 kg, Start date: 07/28/18 12:40:00 CDT, Stop date: 07/28/18 12:40:00 CDT clindamycin 2017- No 300 mg = 1 Memoria 300 mg oral 7-17 cap, PO, l capsule 15:00: Q6H, X 10 Joanna nn 00 day, # 40 cap, 0 Refill(s), Pharmacy: [facility] Mupirocin No 1 appl, Memor ia 0.02 MG/MG 7-17 TOP, TID, l Topical 15:00: PRN as Momo Ointment 00 needed, [Bactroban] Apply to affected area(s), X 10 day, # 22 gm, 0 Refill(s), Pharmacy: [facility] clindamycin No 300 mg = 1 Memoria 300 mg oral 7-17 cap, PO, l capsule 15:00: Q6H, X 10 Joanna nn 00 day, # 40 cap, 0 Refill(s), Pharmacy: [facility] Mupirocin No 1 appl, Memor ia 0.02 MG/MG 7-17 TOP, TID, l Topical 15:00: PRN as Momo Ointment 00 needed, [Bactroban] Apply to affected area(s), X 10 day, # 22 gm, 0 Refill(s), Pharmacy: [facility] clindamycin No 300 mg = 1 Memoria 300 mg oral 7-17 cap, PO, l capsule 15:00: Q6H, X 10 Joanna nn 00 day, # 40 cap, 0 Refill(s), Pharmacy: [facility] Mupirocin No 1 appl, Memor ia 0.02 MG/MG 7-17 TOP, TID, l Topical 15:00: PRN as Momo Ointment 00 needed, [Bactroban] Apply to affected area(s), X 10 day, # 22 gm, 0 Refill(s), Pharmacy: [facility] Cefazolin No Notes: Memori a 6-04 (Same As: l 14:00: Ancef, [place] 00 Kefzol) MEDICATION WASTE Product Size: 1000 mg Product Wasted: ___ mg Cefazolin No Notes: Memori a 03-02 (Same As: l 14:00: Ancef, [place] 00 Kefzol) MEDICATION WASTE Product Size: 1000 mg Product Wasted: ___ mg Cefazolin No Notes: Memori a 03-02 (Same As: l 14:00: Ancef, [place] 00 Kefzol) MEDICATION WASTE Product Size: 1000 mg Product Wasted: ___ mg Restoril No Notes: Memoria 03-02 (Same As: l 13:48: Restoril) [place] 00 Restoril No Notes: Memoria 03-02 (Same As: l 13:48: Restoril) [place]on Restoril No Notes: Memoria 03-02 (Same As: l 13:48: Restoril) metoprolol Yes 50 mg = 1 Me moria tartrate 50 5-30 tab, PO, l mg oral 20:14: Q12H, # [place] tablet 00 180 tab, 1 Refill(s), Pharmacy: [place] [id number] metoprolol 0 Yes 50 mg = 1 Me moria tartrate 50 5-30 tab, PO, l mg oral 20:14: Q12H, # Momo tablet 00 180 tab, 1 Refill(s), Pharmacy: [place] [id number] metoprolol 0 Yes 50 mg = 1 Me moria tartrate 50 5-30 tab, PO, l mg oral 20:14: Q12H, # [place] tablet 00 180 tab, 1 Refill(s), Pharmacy: [place] [id number] amLODIPine 0 Yes 10 mg = 1 Me moria 10 mg oral 5-30 tab, PO, l tablet 20:13: Daily, # [place] 00 90 tab, 0 Refill(s), Pharmacy: [place] [id number] amLODIPine 0 Yes 10 mg = 1 Me moria 10 mg oral 5-30 tab, PO, l tablet 20:13: Daily, # [place] 00 90 tab, 0 Refill(s), Pharmacy: [place] [id number] amLODIPine 0 Yes 10 mg = 1 Me moria 10 mg oral 5-30 tab, PO, l tablet 20:13: Daily, # Momo 00 90 tab, 0 Refill(s), Pharmacy: [facility] [id number] Fentanyl Yes Notes: Memoria 4-05 (Same as: l 15:40: Sublimaze) Momo 00 Preservati ve free. Flumazenil Yes Notes: Memor ia 4-05 (Same as: l 15:40: Romazicon) Naloxone Yes Notes: Memoria 4-05 Same as l 15:40: Narcan [place] 00 Acetaminoph No 1,000 mg, M emoria en 405 Route: l 15:40: IVPB, Drug [place] 00 form: INJ, ONCE, Dosing Weight 103.182, kg, PRN Pain Score 1-3, Start date: 01/01/18 10:40:00 CDT Ondansetron 0 No 4 mg, Memor ia 4-05 Route: l 15:40: IVP, ONCE, Momo 00 Dosing Weight 103.182, kg, PRN Nausea & Vomiting, Start date: 01/01/18 10:40:00 CDT Fentanyl 0 Yes Notes: Memoria 4-05 (Same as: l 15:40: Sublimaze) Momo 00 Preservati ve free. Flumazenil Yes Notes: Memor ia 4-05 (Same as: l 15:40: Romazicon) Naloxone Yes Notes: Memoria 4-05 Same as l 15:40: Narcan Momo 00 Acetaminoph No 1,000 mg, M emoria en 405 Route: l 15:40: IVPB, Drug [place] 00 form: INJ, ONCE, Dosing Weight 103.182, kg, PRN Pain Score 1-3, Start date: 01/01/18 10:40:00 CDT Ondansetron 0 No 4 mg, Memor ia 4-05 Route: l 15:40: IVP, ONCE, Momo 00 Dosing Weight 103.182, kg, PRN Nausea & Vomiting, Start date: 01/01/18 10:40:00 CDT Fentanyl 2017-0 Yes Notes: Memoria 4-05 (Same as: l 15:40: Sublimaze) [place] Preservati ve free. Flumazenil Yes Notes: Memor ia -05 (Same as: l 15:40: Romazicon) Naloxone Yes Notes: Memoria 4-05 Same as l 15:40: Narcan Acetaminoph No 1,000 mg, M john paul en 01-01 Route: l 15:40: IVPB, Drug [...] ONCE, Stop date: 01/01/18 10:27:00 CDT ondansetron No Route: IV, Memoria (ANES) 01-01 Drug form: l 15:27: INJ, ONCE, Stop date: 01/01/18 10:27:00 CDT protamine 0 No Route: IV, Me moria (ANES) 4- Drug form: l 15:27: INJ, ONCE, Stop date: 01/01/18 10:27:00 CDT ondansetron No Route: IV, Memoria (ANES) 05 Drug form: l 15:27: INJ, ONCE, Stop date: 01/01/18 10:27:00 CDT protamine No Route: IV, Me moria (ANES) 4-05 Drug form: l 15:27: INJ, ONCE, Stop date: 01/01/18 10:27:00 CDT ondansetron 0 No Route: IV, Memoria (ANES) 4- Drug form: l 15:27: INJ, ONCE, Stop date: 01/01/18 10:27:00 CDT heparin 2018-0 No Route: IV, Tico jessi (ANES) 4- Drug form: l 14:49: INJ, ONCE, Stop date: 01/01/18 9:49:00 CDT heparin 2018-0 No Route: IV, Tico jessi (ANES) 4- Drug form: l 14:49: INJ, ONCE, Stop date: 01/01/18 9:49:00 CDT heparin 2018-0 No Route: IV, Tico jessi (ANES) 4- Drug form: l 14:49: INJ, ONCE, Stop date: 01/01/18 9:49:00 CDT glycopyrrol 2017-0 No Route: IV, Memoria ate (ANES) 4 Drug form: l 14:34: INJ, ONCE, Stop date: 01/01/18 9:34:00 CDT glycopyrrol 2018-0 No Route: IV, Memoria ate (ANES) 4 Drug form: l 14:34: INJ, ONCE, Stop date: 01/01/18 9:34:00 CDT glycopyrrol 2017-0 No Route: IV, Memoria ate (ANES) 4 Drug form: l 14:34: INJ, ONCE, Stop date: 01/01/18 9:34:00 CDT propofol 2018-0 No Route: IV, Mem oria (ANES) 4- Drug form: l 14:04: INJ, ONCE, Stop date: 01/01/18 9:04:00 CDT lidocaine 2018-0 No Route: IV, Me moria (ANES) 4-05 Drug form: l 14:04: INJ, ONCE, Stop date: 01/01/18 9:04:00 CDT midazolam 2018-0 No Route: IV, Me moria (ANES) 4-05 Drug form: l 14:04: SOLN, Momo 00 ONCE, Stop date: 01/01/18 9:04:00 CDT fentaNYL 2018-0 No Route: IV, Mem oria (ANES) 4-05 Drug form: l 14:04: INJ, ONCE, Stop date: 01/01/18 9:04:00 CDT propofol 2018-0 No Route: IV, Mem oria (ANES) 4-05 Drug form: l 14:04: INJ, ONCE, Momo 00 Stop date: 01/01/18 9:04:00 CDT lidocaine 2018-0 No Route: IV, Me moria (ANES) 4-05 Drug form: l 14:04: INJ, ONCE, Momo 00 Stop date: 01/01/18 9:04:00 CDT midazolam 2018-0 No Route: IV, Me moria (ANES) 4-05 Drug form: l 14:04: SOLN, [place] 00 ONCE, Stop date: 01/01/18 9:04:00 CDT fentaNYL 2018-0 No Route: IV, Mem oria (ANES) 4-05 Drug form: l 14:04: INJ, ONCE, [place]on Stop date: 01/01/18 9:04:00 CDT propofol 2018-0 No Route: IV, Mem oria (ANES) 4- Drug form: l 14:04: INJ, ONCE, [place]on Stop date: 01/01/18 9:04:00 CDT lidocaine 2018-0 [...] Memoria 4-05 Same as: l 14:00: Renvela [place] 00 multivitami 2018-0 Yes Notes: Tico jessi n 4-05 (Same l 14:00: as:Thera) [place] 00 WASTE: F/P - Black; E - Municipal Trash Bin Take with food. Renvela [id number] Yes Notes: Memoria 4-05 Same as: l 14:00: Renvela [place] multivitami 2018-0 Yes Notes: Tico jessi n 4-05 (Same l 14:00: as:Thera) WASTE: F/P - Black; E - Municipal Trash Bin Take with food. Renvela Yes Notes: Memoria 4-05 Same as: l 14:00: Renvela multivitami Yes Notes: Tico jessi n 4-05 (Same l 14:00: as:Thera) WASTE: F/P - Black; E - Municipal Trash Bin Take with food. phenylephri No Route: IV, Memoria ne (ANES) 4- Drug form: l 100 13:44: INJ, Start [place]on microgram 00 date: 01/01/18 8:44:00 CDT, Stop date: 01/01/18 9:44:00 CDT phenylephri No Route: IV, Memoria ne (ANES) 4-05 Drug form: l 100 13:44: INJ, Start [place]on microgram date: 01/01/18 8:44:00 CDT, Stop date: 01/01/18 9:44:00 CDT phenylephri No Route: IV, Memoria ne (ANES) 4-05 Drug form: l 100 13:44: INJ, Start Momo microgram date: 01/01/18 8:44:00 CDT, Stop date: 01/01/18 9:44:00 CDT Zofran No Notes: Memoria - (Same as: l 13:43: Zofran) MEDICATION WASTE [...] Acetaminoph No Notes: Do M emoria en 4-05 not exceed l 13:43: 4 gm/day. Momo 00 (Same as: Tylenol) acetaminoph No Notes: Do M emoria en-codeine 4-05 not exceed l #3 13:43: 4gm/day of [place]on acetaminop hen. (Same as: Tylenol with Codeine # 3) Acetaminoph No Notes: Tico jessi en 325 MG / 4-05 (Same as: l Hydrocodone 13:43: [place] Jonana nn Bitartrate 00 325/5) Do 5 MG Oral not exceed Tablet 4gm/day of acetaminop hen. Zofran No Notes: Memoria 4-05 (Same as: l 13:43: Zofran) Momo MEDICATION WASTE Product Size: 4 mg Product Wasted: ___ mg NS 0.45% IV No 1,000 mL, M emoria 1,000 mL 01-01 Rate: 50 l 13:43: ml/hr, [place] 00 Infuse over: 20 hr, Route: IV, Dosing Weight 103.182 kg, Total Volume: 1,000, Start date: 01/01/18 8:43:00 CDT, Duration: 30 day, Stop date: 01/31/18 8:42:00 CDT, 2.24, m2 Morphine No Notes: Memoria 4-05 (Same l 13:43: as:MORPhin [place] 00 e Sulfate) Acetaminoph No Notes: Do M emoria en 4-05 not exceed l 13:43: 4 gm/day. [place] 00 (Same as: Tylenol) acetaminoph No Notes: Do M emoria en-codeine 4-05 not exceed l #3 13:43: 4gm/day of [place]on acetaminop hen. (Same as: Tylenol with Codeine # 3) Acetaminoph No Notes: Tico jessi en 325 MG / 4-05 (Same as: l Hydrocodone 13:43: [place] Joanna nn Bitartrate 00 325/5) Do 5 [...] -05 not exceed l 13:43: 4 gm/day. (Same as: Tylenol) acetaminoph No Notes: Do M emoria en-codeine 01-01 not exceed l #3 13:43: 4gm/day of acetaminop hen. (Same as: Tylenol with Codeine # 3) Acetaminoph No Notes: Tico jessi en 325 MG / 01-01 (Same as: l Hydrocodone 13:43: [place] Joanna nn Bitartrate 00 325/5) Do 5 MG Oral not exceed Tablet 4gm/day of acetaminop hen. vancomycin No Route: IV, Jossy emoria (ANES) 01-01 Drug form: l mg 13:39: INJ, Start date: 01/01/18 8:39:00 CDT, Stop date: 01/01/18 9:39:00 CDT vancomycin No Route: IV, M emoria (ANES) 01-01 Drug form: l mg 13:39: INJ, Start date: 01/01/18 8:39:00 CDT, Stop date: 01/01/18 9:39:00 CDT vancomycin No Route: IV, M emoria (ANES) 01-01 Drug form: l mg 13:39: INJ, Start Momo 00 date: 01/01/18 8:39:00 CDT, Stop date: 01/01/18 9:39:00 CDT Sodium 2017-0 No Route: IV, Memor ia Chloride 4-05 Total l 0.9% IV 13:31: Volume: Momo (ANES) 500 00 500, Start mL date: 01/01/18 8:31:00 CDT, Stop date: 01/01/18 9:31:00 CDT Sodium 2017-0 No Route: IV, Memor ia Chloride 4-05 Total l 0.9% IV 13:31: Volume: [place]on (ANES) 500 00 500, Start mL date: 01/01/18 8:31:00 CDT, Stop date: 01/01/18 9:31:00 CDT Sodium 2017-0 No Route: IV, Memor ia Chloride 4-05 Total l 0.9% IV 13:31: Volume: [place] (ANES) 500 00 500, Start mL date: 01/01/18 8:31:00 CDT, Stop date: 01/01/18 9:31:00 CDT Vitamin 2018-0 No 1 tab, Memoria B-100 2-16 Route: PO, l 15:00: Dosing Momo Weight 100.057, kg, Daily, Start date: 11/14/17 9:00:00 ICE CARVER, Duration: 30 day, Stop date: 12/13/17 9:00:00 CDT Vitamin 2018-0 No 1 tab, Memoria B-100 2-16 Route: PO, l 15:00: Dosing Momo Weight 100.057, kg, Daily, Start date: 11/14/17 9:00:00 ICE CARVER, Duration: 30 day, Stop date: 12/13/17 9:00:00 CDT Vitamin 2018-0 No 1 tab, Memoria B-100 2-16 Route: PO, l 15:00: Dosing [place] Weight 100.057, kg, Daily, Start date: 11/14/17 9:00:00 ICE CARVER, Duration: 30 day, Stop date: 12/13/17 9:00:00 CDT Renvela 2017-0 No Notes: Memoria 2-15 Same as: l 23:00: Renvela [place] Renvela No Notes: Memoria 2-15 Same as: l 23:00: Renvela [place] Renvela No Notes: Memoria 2-15 Same as: l 23:00: Renvela Fentanyl No Notes: Memoria 2-15 (Same as: l 21:23: Sublimaze) Momo Preservati ve free. Naloxone No Notes: Memoria 2-15 Same as l 21:23: Narcan Momo 00 Flumazenil No Notes: Memor ia 2-15 (Same as: l 21:23: Romazicon) [place] 00 Acetaminoph No Notes: Tico jessi en 2-15 Infuse l 21:23: over 15 Weston 00 minutes Do not exceed 4gm/day of acetaminop hen MEDICATION WASTE Product Size: 1000 mg Product Wasted: ___ mg Ondansetron No Notes: Tico jessi 2-15 (Same as: l 21:23: Zofran) Momo 00 MEDICATION WASTE Product Size: 4 mg Product Wasted: ___ mg Fentanyl No Notes: Memoria 2-15 (Same as: l 21:23: Sublimaze) [place] 00 Preservati ve free. Naloxone No Notes: Memoria 2-15 Same as l 21:23: Narcan Flumazenil No Notes: Memor ia 2-15 (Same as: l 21:23: Romazicon) [place] 00 Acetaminoph No Notes: Tico jessi en 2-15 Infuse l 21:23: over 15 Momo 00 minutes Do not exceed 4gm/day of acetaminop hen MEDICATION WASTE Product Size: 1000 mg Product Wasted: ___ mg Ondansetron 2018- No Notes: Tico jessi 2-15 (Same as: l 21:23: Zofran) Momo MEDICATION WASTE Product Size: 4 mg Product Wasted: ___ mg Fentanyl 2017- No Notes: Memoria 2-15 (Same as: l 21:23: Sublimaze) [place] Preservati ve free. Naloxone No Notes: Memoria [...] 20:57: INJ, ONCE, Stop date: 11/13/17 14:57:00 ICE CARVER ondansetron No Route: IV, Memoria (ANES) 2-15 Drug form: l 20:57: INJ, ONCE, Stop date: 11/13/17 14:57:00 ICE CARVER ondansetron 0 No Route: IV, Memoria (ANES) 2-15 Drug form: l 20:57: INJ, ONCE, Stop date: 11/13/17 14:57:00 ICE CARVER ePHEDrine No Route: IV, Me moria (ANES) 2-15 Drug form: l 20:44: INJ, ONCE, Stop date: 11/13/17 14:44:00 ICE CARVER ePHEDrine 0 No Route: IV, Me moria (ANES) 2-15 Drug form: l 20:44: INJ, ONCE, Stop date: 11/13/17 14:44:00 ICE CARVER ePHEDrine 0 No Route: IV, Me moria (ANES) 2-15 Drug form: l 20:44: INJ, ONCE, Stop date: 11/13/17 14:44:00 ICE CARVER propofol No Route: IV, Mem oria (ANES) 2-15 Drug form: l 20:29: INJ, ONCE, Momo 00 Stop date: 11/13/17 14:29:00 ICE CARVER propofol 2018-0 No Route: IV, Mem oria (ANES) 2-15 Drug form: l 20:29: INJ, ONCE, Momo 00 Stop date: 11/13/17 14:29:00 ICE CARVER propofol 2018-0 No Route: IV, Mem oria (ANES) 2-15 Drug form: l 20:29: INJ, ONCE, Momo 00 Stop date: 11/13/17 14:29:00 ICE CARVER lidocaine 2018-0 No Route: IV, Me moria (ANES) 2-15 Drug form: l 20:24: INJ, ONCE, Momo 00 Stop date: 11/13/17 14:24:00 ICE CARVER fentaNYL 2018-0 No Route: IV, Mem oria (ANES) 2-15 Drug form: l 20:24: INJ, ONCE, Momo 00 Stop date: 11/13/17 14:24:00 ICE CARVER midazolam 2018-0 No Route: IV, Me moria (ANES) 2-15 Drug form: l 20:24: SOLN, Momo ONCE, Stop date: 11/13/17 14:24:00 ICE CARVER lidocaine 2018-0 No Route: IV, Me moria (ANES) 2-15 Drug form: l 20:24: INJ, ONCE, Momo 00 Stop date: 11/13/17 14:24:00 ICE CARVER fentaNYL 2018-0 No Route: IV, Mem oria (ANES) 2-15 Drug form: l 20:24: INJ, ONCE, Momo 00 Stop date: 11/13/17 14:24:00 ICE CARVER midazolam 2018-0 No Route: IV, Me moria (ANES) 2-15 Drug form: l 20:24: SOLN, Momo ONCE, Stop date: 11/13/17 14:24:00 ICE CARVER lidocaine 2018-0 No Route: IV, Me moria (ANES) 2-15 Drug form: l 20:24: INJ, ONCE, Momo 00 Stop date: 11/13/17 14:24:00 ICE CARVER fentaNYL 2018-0 No Route: IV, Mem oria (ANES) 2-15 Drug form: l 20:24: INJ, ONCE, [place] 00 Stop date: 11/13/17 14:24:00 ICE CARVER midazolam 2018-0 No Route: IV, Me moria (ANES) 2-15 Drug form: l 20:24: SOLN, Momo 00 ONCE, Stop date: 11/13/17 14:24:00 ICE CARVER phenylephri 2018-0 No Route: IV, Memoria ne (ANES) 2-15 Drug form: l 100 20:07: INJ, Start Weston microgram 00 date: 11/13/17 14:07:00 ICE CARVER, Stop date: 11/13/17 15:07:00 ICE CARVER phenylephri 2018-0 No Route: IV, Memoria ne (ANES) 2-15 Drug form: l 100 20:07: INJ, Start Weston microgram date: 11/13/17 14:07:00 ICE CARVER, Stop date: 11/13/17 15:07:00 ICE CARVER phenylephri 2018-0 No Route: IV, Memoria ne (ANES) 2-15 Drug form: l 100 20:07: INJ, Start Weston microgram date: 11/13/17 14:07:00 ICE CARVER, Stop date: 11/13/17 15:07:00 ICE CARVER Cefazolin 2018-0 No Notes: Memori a 2-15 (Same As: l 20:00: Ancef, Momo 00 Kefzol) MEDICATION WASTE Product Size: 1000 mg Product Wasted: ___ mg vancomycin 2017-0 No Route: IV, M emoria (ANES) 11-13 Drug form: l mg 20:00: INJ, Start Weston date: 11/13/17 14:00:00 ICE CARVER, Stop date: 11/13/17 15:00:00 ICE CARVER Cefazolin 2018-0 No Notes: Memori a 2-15 (Same As: l 20:00: Ancef, Momo 00 Kefzol) MEDICATION WASTE Product Size: 1000 mg Product Wasted: ___ mg vancomycin 2018-0 No Route: IV, M emoria (ANES) 11-13 Drug form: l mg 20:00: INJ, Start Momo date: 11/13/17 14:00:00 ICE CARVER, Stop date: 11/13/17 15:00:00 ICE CARVER Cefazolin 2018-0 No Notes: Memori a 2-15 (Same As: l 20:00: Ancef, Kefzol) MEDICATION WASTE Product Size: 1000 mg Product Wasted: ___ mg vancomycin No Route: IV, M emoria (ANES) 2000 2-15 Drug form: l mg 20:00: INJ, Start date: 11/13/17 14:00:00 ICE CARVER, Stop date: 11/13/17 15:00:00 ICE CARVER Restoril No Notes: Memoria 2-15 (Same As: l 19:59: Restoril) Restoril No Notes: Memoria 2-15 (Same As: l 19:59: Restoril) Restoril No Notes: Memoria 2-15 (Same As: l 19:59: Restoril) Sodium No Route: IV, Memor ia Chloride 2-15 Total l 0.9% IV 19:54: Volume: Momo (ANES) 500 00 500, Start mL date: 11/13/17 13:54:00 ICE CARVER, Stop date: 11/13/17 14:54:00 ICE CARVER Sodium No Route: IV, Memor ia Chloride 2-15 Total l 0.9% IV 19:54: Volume: Momo (ANES) 500 00 500, Start mL date: 11/13/17 13:54:00 ICE CARVER, Stop date: 11/13/17 14:54:00 ICE CARVER Sodium No Route: IV, Memor ia Chloride 2-15 Total l 0.9% IV 19:54: Volume: [place] (ANES) 500 00 500, Start mL date: 11/13/17 13:54:00 ICE CARVER, Stop date: 11/13/17 14:54:00 ICE CARVER acetaminoph No Notes: Do M emoria en-codeine 2-15 not exceed l #3 19:23: 4gm/day of acetaminop hen. (Same as: Tylenol with Codeine # 3) Acetaminoph No Notes: Do M emoria en 2-15 not exceed l 19:23: 4 gm/day. (Same as: Tylenol) Morphine No Notes: Memoria 2-15 (Same l 19:23: as:MORPhin [place] 00 e Sulfate) Acetaminoph No Notes: Do M emoria en 325 MG / 2-15 not exceed l Hydrocodone 19:23: 4gm/day of [place]on Bitartrate 00 acetaminop 10 MG Oral hen. (Same Tablet as: [place] 325/10) Acetaminoph No Notes: Tico jessi en 325 MG / 2-15 (Same as: l Hydrocodone 19:23: [place] Joanna nn Bitartrate 00 325/5) Do 5 MG Oral not exceed Tablet 4gm/day of acetaminop hen. NS 0.45% IV No 1,000 mL, M emoria 1,000 mL 2-15 Rate: 50 l 19:23: ml/hr, [place] 00 Infuse over: 20 hr, Route: IV, Dosing Weight 100.057 kg, Total Volume: 1,000, Start date: 11/13/17 13:23:00 ICE CARVER, Duration: 30 day, Stop date: 12/13/17 13:22:00 CDT, 2.2, m2 Zofran No Notes: Memoria 2-15 (Same as: l 19:23: Zofran) [place] 00 MEDICATION WASTE Product Size: 4 mg Product Wasted: ___ mg acetaminoph No Notes: Do M emoria en-codeine 2-15 not exceed l #3 19:23: 4gm/day of Momo 00 acetaminop hen. (Same as: Tylenol with Codeine # 3) Acetaminoph No Notes: Do M emoria en 2-15 not exceed l 19:23: 4 gm/day. [place] 00 (Same as: Tylenol) Morphine No Notes: Memoria 2-15 (Same l 19:23: as:MORPhin [place] 00 e Sulfate) Acetaminoph No Notes: Do M emoria en 325 MG / 2-15 not exceed l Hydrocodone 19:23: 4gm/day of Momo Bitartrate 00 acetaminop 10 MG Oral hen. (Same Tablet as: [place] 325/10) Acetaminoph No Notes: Tico jessi en 325 MG / 2-15 (Same as: l Hydrocodone 19:23: [place] Joanna nn Bitartrate 00 325/5) Do 5 MG Oral not exceed Tablet 4gm/day of acetaminop hen. NS 0.45% IV No 1,000 mL, M emoria 1,000 mL 2-15 Rate: 50 l 19:23: ml/hr, Momo 00 Infuse over: 20 hr, Route: IV, Dosing Weight 100.057 kg, Total Volume: 1,000, Start date: 11/13/17 13:23:00 ICE CARVER, Duration: 30 day, Stop date: 12/13/17 13:22:00 CDT, 2.2, m2 Zofran No Notes: Memoria 2-15 (Same as: l 19:23: Zofran) Momo 00 MEDICATION WASTE Product Size: 4 mg Product Wasted: ___ mg acetaminoph No Notes: Do M emoria en-codeine 2-15 not exceed l #3 19:23: 4gm/day of [place] acetaminop hen. (Same as: Tylenol with Codeine # 3) Acetaminoph No Notes: Do M emoria en 2-15 not exceed l 19:23: 4 gm/day. Momo 00 (Same as: Tylenol) Morphine No Notes: Memoria 2-15 (Same l 19:23: as:MORPhin Momo 00 e Sulfate) Acetaminoph No Notes: Do M emoria en 325 MG / 2-15 not exceed l Hydrocodone 19:23: 4gm/day of [place] Bitartrate 00 acetaminop 10 MG Oral hen. (Same Tablet as: [place] 325/10) Acetaminoph No Notes: Tico jessi en 325 MG / 2-15 (Same as: l Hydrocodone 19:23: [place] Joanna nn Bitartrate 00 325/5) Do 5 MG Oral not exceed Tablet 4gm/day of acetaminop hen. NS 0.45% IV No 1,000 mL, M emoria 1,000 mL 2-15 Rate: 50 l 19:23: ml/hr, Momo 00 Infuse over: 20 hr, Route: IV, Dosing Weight 100.057 kg, Total Volume: 1,000, Start date: 11/13/17 13:23:00 ICE CARVER, Duration: 30 day, Stop date: 12/13/17 13:22:00 CDT, 2.2, m2 Zofran No Notes: Memoria 2-15 (Same as: l 19:23: Zofran) MEDICATION WASTE Product Size: 4 mg [...] tablet po if snack., 0 Refill(s) Vitamin 0 No Notes: Memoria B-100 - (Same l 14:00: as:Thera) WASTE: F/P - [...] Memoria 06-26 Same as: l 18:00: Renvela Momo 00 Renvela No Notes: Memoria 06-26 Same as: l 18:00: Renvela Momo Renvela No Notes: Memoria 06-26 Same as: l 18:00: Renvela Ofirmev No 1,000 mg, Memor ia 06-26 [...] ONCE, Stop date: 06/26/17 11:53:00 CDT glycopyrrol 0 No Route: IV, Memoria ate (ANES) 06-26 Drug form: l 16:53: INJ, ONCE, Stop date: 06/26/17 11:53:00 CDT protamine 0 No Route: IV, Me moria (ANES) 06-26 Drug form: l 16:53: INJ, ONCE, Stop date: 06/26/17 11:53:00 CDT ketOROLAC No IV, ONCE Tico jessi (ANES) 06-26 l 16:53: neostigmine No Route: IV, Memoria (ANES) 06-26 Drug form: l 16:53: INJ, ONCE, Stop date: 06/26/17 11:53:00 CDT glycopyrrol 0 No Route: IV, Memoria ate (ANES) 06-26 Drug form: l 16:53: INJ, ONCE, Stop date: 06/26/17 11:53:00 CDT protamine 0 No Route: IV, Me moria (ANES) 06-26 Drug form: l 16:53: INJ, ONCE, Stop date: 06/26/17 11:53:00 CDT ketOROLAC 0 No IV, ONCE Tico jessi (ANES) 06-26 l 16:53: neostigmine 0 No Route: IV, Memoria (ANES) 06-26 Drug form: l 16:53: INJ, ONCE, Stop date: 06/26/17 11:53:00 CDT glycopyrrol 0 No Route: IV, Memoria ate (ANES) 06-26 Drug form: l 16:53: INJ, ONCE, Stop date: 06/26/17 11:53:00 CDT heparin 0 No Route: IV, Tico jessi (ANES) 06-26 Drug form: l 16:37: INJ, ONCE, Stop date: 06/26/17 11:37:00 CDT heparin 2017-0 No Route: IV, Tico jessi (ANES) 06-26 Drug form: l 16:37: INJ, ONCE, Momo Stop date: 06/26/17 11:37:00 CDT heparin No Route: IV, Tico jessi (ANES) 06-26 Drug form: l 16:37: INJ, ONCE, Momo 00 Stop date: 06/26/17 11:37:00 CDT fentaNYL No Route: IV, Mem oria (ANES) 06-26 Drug form: l 16:17: INJ, ONCE, [place] 00 Stop date: 06/26/17 11:17:00 CDT midazolam No Route: IV, Me moria (ANES) 06-26 Drug form: l 16:17: SOLN, [place] ONCE, Stop date: 06/26/17 11:17:00 CDT fentaNYL No Route: IV, Mem oria (ANES) 06-26 Drug form: l 16:17: INJ, ONCE, [place] 00 Stop date: 06/26/17 11:17:00 CDT midazolam No Route: IV, Me moria (ANES) 06-26 Drug form: l 16:17: SOLN, Momo ONCE, Stop date: 06/26/17 11:17:00 CDT fentaNYL No Route: IV, Mem oria (ANES) 06-26 Drug form: l 16:17: INJ, ONCE, Momo 00 Stop date: 06/26/17 11:17:00 CDT midazolam No Route: IV, Me moria (ANES) 06-26 Drug form: l 16:17: SOLN, [place] 00 ONCE, Stop date: 06/26/17 11:17:00 CDT ePHEDrine No Route: IV, Me moria (ANES) 06-26 Drug form: l 16:12: INJ, ONCE, [place] 00 Stop date: 06/26/17 11:12:00 CDT phenylephri No Route: IV, Memoria ne (ANES) 06-26 Drug form: l 16:12: INJ, ONCE, Momo 00 Stop date: 06/26/17 11:12:00 CDT ePHEDrine 2017-0 No Route: IV, Me moria (ANES) 06-26 Drug form: l 16:12: INJ, ONCE, Stop date: 06/26/17 11:12:00 CDT phenylephri 2016- No Route: IV, Memoria ne (ANES) 06-26 Drug form: l 16:12: INJ, ONCE, Stop date: 06/26/17 11:12:00 CDT ePHEDrine 2016- No Route: IV, Me moria (ANES) 06-26 Drug form: l 16:12: INJ, ONCE, Stop date: 06/26/17 11:12:00 CDT phenylephri No Route: IV, Memoria ne (ANES) 06-26 Drug form: l 16:12: INJ, ONCE, Stop date: 06/26/17 11:12:00 CDT propofol 0 No Route: IV, Mem oria (ANES) 06-26 Drug form: l 15:57: INJ, ONCE, Stop date: 06/26/17 10:57:00 CDT rocuronium 0 No Route: IV, M emoria (ANES) 06-26 Drug form: l 15:57: INJ, ONCE, Stop date: 06/26/17 10:57:00 CDT propofol 2016-0 No Route: IV, Mem oria (ANES) 06-26 Drug form: l 15:57: INJ, ONCE, Stop date: 06/26/17 10:57:00 CDT rocuronium 2016-0 No Route: IV, M emoria (ANES) 06-26 Drug form: l 15:57: INJ, ONCE, Stop date: 06/26/17 10:57:00 CDT propofol 2016-0 No Route: IV, Mem oria (ANES) 06-26 Drug form: l 15:57: INJ, ONCE, Stop date: 06/26/17 10:57:00 CDT rocuronium 2016-0 No Route: IV, M emoria (ANES) 06-26 Drug form: l 15:57: INJ, ONCE, Stop date: 06/26/17 10:57:00 CDT sodium 2017-0 No 1,000 mL, Memori a chloride 06-26 Rate: 50 l 0.45% 1000 15:42: ml/hr, Joanna nn ml INJ 00 Infuse 1,000 mL over: 20 hr, Route: IV, Dosing Weight 100 kg, Total Volume: 1,000, Start date: 06/26/17 10:42:00 CDT, Duration: 30 day, Stop date: 07/26/17 10:41:00 CDT Zofran No Notes: Memoria 06-26 (Same as: l 15:42: Zofran) [place] 00 MEDICATION WASTE Product Size: 4 mg Product Wasted: ___ mg Acetaminoph No Notes: Do M emoria en 06-26 not exceed l 15:42: 4 gm/day. Momo 00 (Same as: Tylenol) Morphine No Notes: Memoria 06-26 (Same l 15:42: as:MORPhin [place] 00 e Sulfate) Acetaminoph No Notes: Do M emoria en 325 MG / 06-26 not exceed l Hydrocodone 15:42: 4gm/day of Momo Bitartrate 00 acetaminop 10 MG Oral hen. (Same Tablet as: [place] 325/10) Acetaminoph No Notes: Tico jessi en 325 MG / 06-26 (Same as: l Hydrocodone 15:42: [place] Joanna nn Bitartrate 00 325/5) Do 5 [...] Memoria 06-26 (Same as: l 15:42: Zofran) [place] 00 MEDICATION WASTE Product Size: 4 mg Product Wasted: ___ mg Acetaminoph No Notes: Do M emoria en 06-26 not exceed l 15:42: 4 gm/day. [place] 00 (Same as: Tylenol) Morphine No Notes: Memoria 06-26 (Same l 15:42: as:MORPhin Momo 00 e Sulfate) Acetaminoph No Notes: Do M emoria en 325 MG / 06-26 not exceed l Hydrocodone 15:42: 4gm/day of [place]on Bitartrate 00 acetaminop 10 MG Oral hen. (Same Tablet as: [place] 325/10) Acetaminoph No Notes: Tico jessi en 325 MG / 06-26 (Same as: l Hydrocodone 15:42: [place] Joanna nn Bitartrate 00 325/5) Do 5 [...] Memoria 06-26 (Same as: l 15:42: Zofran) [place] 00 MEDICATION WASTE Product Size: 4 mg Product Wasted: ___ mg Acetaminoph No Notes: Do M emoria en 06-26 not exceed l 15:42: 4 gm/day. [place] 00 (Same as: Tylenol) Morphine No Notes: Memoria 06-26 (Same l 15:42: as:MORPhin [place] 00 e Sulfate) Acetaminoph No Notes: Do M emoria en 325 MG / 06-26 not exceed l Hydrocodone 15:42: 4gm/day of Momo Bitartrate 00 acetaminop 10 MG Oral hen. (Same Tablet as: [place] 325/10) Acetaminoph No Notes: Tico jessi en 325 MG / 06-26 (Same as: l Hydrocodone 15:42: [place] Joanna nn Bitartrate 00 325/5) Do 5 [...] sodium No Route: IV, Memor ia chloride - Total l 0.9% 500 ml 15:24: Volume: Her bertrand INJ (ANES) 00 500, Start date: 06/26/17 10:24:00 CDT, Stop date: 06/26/17 11:24:00 CDT vancomycin No Route: IV, M emoria (ANES) 06-26 Drug form: l (ANES) 15:22: INJ, Start Joanna nn date: 06/26/17 10:22:00 CDT, Stop date: 06/26/17 11:22:00 CDT vancomycin No Route: IV, M emoria (ANES) 06-26 Drug form: l (ANES) 15:22: INJ, Start Joanna nn date: 06/26/17 10:22:00 CDT, Stop date: 06/26/17 11:22:00 CDT vancomycin No Route: IV, M emoria (ANES) 06-26 Drug form: l (ANES) 15:22: INJ, Start Joanna nn date: 06/26/17 10:22:00 CDT, Stop date: 06/26/17 11:22:00 CDT Cefazolin No Notes: Memori a 06-26 Same as: l 13:00: Ancef [place] Cefazolin No Notes: Memori a 06-26 Same as: l 13:00: Ancef [place] 00 Cefazolin No Notes: Memori a 06-26 Same as: l 13:00: Ancef Momo 00 Hydralazine Yes Notes: Tico jessi 06-26 (Same as: l 12:58: Apresoline [place] 00 ) Push over 5 minutes Hydralazine Yes Notes: Tico jessi 06-26 (Same as: l 12:58: Apresoline Momo 00 ) Push over 5 minutes Hydralazine Yes Notes: Tico jessi 06-26 (Same as: l 12:58: Apresoline Momo 00 ) Push over 5 minutes Ondansetron No [...] jessi 06-26 (Same as: l 12:42: Zofran) Momo 00 MEDICATION WASTE Product Size: 4 mg Product Wasted: ___ mg Flumazenil No Notes: Memor ia 06-26 (Same as: l 12:42: Romazicon) Naloxone No Notes: Memoria 06-26 Same as l 12:42: Narcan Fentanyl No Notes: Memoria 06-26 (Same as: l 12:42: Sublimaze) [place] 00 Preservati ve free. Hydromorpho No Notes: [...] Memoria 06-26 (Same as: l 12:42: Sublimaze) [place] 00 Preservati ve free. Hydromorpho No Notes: [...] PO, l mg oral 12:39: Q12H, 0 [place]on tablet 00 Refill(s) metoprolol Yes 50 mg = 1 Me moria tartrate 50 9-28 tab, PO, l mg oral 12:39: Q12H, 0 [place] tablet 00 Refill(s) metoprolol Yes 50 mg = 1 Me moria tartrate 50 9-28 tab, PO, l mg oral 12:39: Q12H, 0 [place] tablet 00 Refill(s) Restoril No Notes: Memoria 06-26 (Same As: l 12:38: Restoril) Restoril No Notes: Memoria 06-26 (Same As: l 12:38: Restoril) Restoril No Notes: Memoria 06-26 (Same As: l 12:38: Restoril) Vitamin Yes 1 tab, PO, Tico jessi B-100 9-20 Daily, 0 l 17:44: Refill(s) Momo 00 Vitamin Yes 1 tab, PO, Tico jessi B-100 9-20 Daily, 0 l 17:44: Refill(s) Vitamin Yes 1 tab, PO, Tico jessi B-100 9-20 Daily, 0 l 17:44: Refill(s) Losartan No Notes: Memoria 8-18 (Same as: l 14:00: Cozaar) Losartan No Notes: Memoria 818 (Same as: l 14:00: Cozaar) Losartan No Notes: Memoria 8 (Same as: l 14:00: Cozaar) Kayexalate No 30 gm, Memor ia 05-15 Route: PO, l 19:14: Drug form: [place] SUSP, ONCE, Dosing Weight 101, kg, Start [...] l 18:13: Romazicon) Naloxone No Notes: Memoria 8-17 Same as l 18:13: Narcan Momo Fentanyl No Notes: Memoria 8-17 (Same as: l 18:13: Sublimaze) Momo 00 Preservati ve free. Ondansetron No Notes: Tico jessi 8-17 (Same as: l 18:13: Zofran) Momo 00 MEDICATION WASTE Product Size: 4 mg Product Wasted: ___ mg Acetaminoph No Notes: Tico jessi en 8-17 Infuse l 18:13: over 15 Momo 00 minutes Do not exceed 4gm/day of acetaminop hen MEDICATION WASTE Product Size: 1000 mg Product Wasted: ___ mg Flumazenil No Notes: Memor ia 8-17 (Same as: l 18:13: Romazicon) Momo Naloxone No Notes: Memoria 8-17 Same as l 18:13: Narcan [place] Fentanyl No Notes: Memoria 8-17 (Same as: l 18:13: Sublimaze) [place] Preservati ve free. Ondansetron No Notes: Tico jessi 8-17 (Same as: l 18:13: Zofran) Momo MEDICATION WASTE Product Size: 4 mg Product Wasted: ___ mg Acetaminoph No Notes: Tico jessi en 8-17 Infuse l 18:13: over 15 [place] 00 minutes Do not exceed 4gm/day of acetaminop hen MEDICATION WASTE Product Size: 1000 mg Product Wasted: ___ mg Flumazenil No Notes: Memor ia 8-17 (Same as: l 18:13: Romazicon) [place] Naloxone No Notes: Memoria 8-17 Same as l 18:13: Narcan Momo Renvela No Notes: Memoria 8-17 Same as: l 18:00: Renvela Momo Renvela No Notes: Memoria 8-17 Same as: l 18:00: Renvela Momo Renvela No Notes: Memoria 8-17 Same as: l 18:00: Renvela ondansetron No Route: IV, Memoria (ANES) 05-15 Drug form: l 17:57: INJ, ONCE, Stop date: 05/15/17 12:57:00 CDT propofol 20170 No Route: IV, Mem oria (ANES) 05-15 Drug form: l 17:57: INJ, ONCE, Stop date: 05/15/17 12:57:00 CDT ondansetron 0 No Route: IV, Memoria (ANES) 05-15 Drug form: l 17:57: INJ, ONCE, Stop date: 05/15/17 12:57:00 CDT propofol 2017-0 No Route: IV, Mem oria (ANES) 05-15 Drug form: l 17:57: INJ, ONCE, Stop date: 05/15/17 12:57:00 CDT ondansetron 0 No Route: IV, Memoria (ANES) 05-15 Drug form: l 17:57: INJ, ONCE, Stop date: 05/15/17 12:57:00 CDT propofol 2016-0 No Route: IV, Mem oria (ANES) 05-15 Drug form: l 17:57: INJ, ONCE, Stop date: 05/15/17 12:57:00 CDT phenylephri 0 No Route: IV, Memoria ne (ANES) 05-15 Drug form: l 17:51: INJ, ONCE, Stop date: 05/15/17 12:51:00 CDT ePHEDrine 2016-0 No Route: IV, Me moria (ANES) 05-15 Drug form: l 17:51: INJ, ONCE, Stop date: 05/15/17 12:51:00 CDT phenylephri 2017-0 No Route: IV, Memoria ne (ANES) 05-15 Drug form: l 17:51: INJ, ONCE, Stop date: 05/15/17 12:51:00 CDT ePHEDrine 2017-0 No Route: IV, Me moria (ANES) [...] ONCE, Stop date: 05/15/17 12:46:00 CDT heparin No Route: IV, Tico jessi (ANES) 05-15 Drug form: l 17:46: INJ, ONCE, Stop date: 05/15/17 12:46:00 CDT heparin No Route: IV, Tico jessi [...] / 05-15 (Same as: l Hydrocodone 17:43: [place] Joanna nn Bitartrate 00 325/5) Do 5 MG Oral not exceed Tablet 4gm/day of acetaminop hen. Acetaminoph No Notes: Do M emoria en 325 MG / 05-15 not exceed l Hydrocodone 17:43: 4gm/day of Momo Bitartrate 00 acetaminop 10 MG Oral hen. (Same Tablet as: [place] 325/10) Acetaminoph No Notes: Do M emoria en 05-15 not exceed l 17:43: 4 gm/day. Momo (Same as: Tylenol) Zofran No Notes: Memoria 05-15 (Same as: l 17:43: Zofran) [place] 00 MEDICATION WASTE Product Size: 4 mg [...] / 05-15 (Same as: l Hydrocodone 17:43: [place] Joanna nn Bitartrate 00 325/5) Do 5 MG Oral not exceed Tablet 4gm/day of acetaminop hen. Acetaminoph No Notes: Do M emoria en 325 MG / 05-15 not exceed l Hydrocodone 17:43: 4gm/day of Momo Bitartrate 00 acetaminop 10 MG Oral hen. (Same Tablet as: [place] 325/10) Acetaminoph No Notes: Do M emoria en 05-15 not exceed l 17:43: 4 gm/day. Momo (Same as: Tylenol) Zofran No Notes: Memoria 05-15 (Same as: l 17:43: Zofran) [place] 00 MEDICATION WASTE Product Size: 4 mg [...] / 05-15 (Same as: l Hydrocodone 17:43: [place] Joanna nn Bitartrate 00 325/5) Do 5 MG Oral not exceed Tablet 4gm/day of acetaminop hen. Acetaminoph No Notes: Do M emoria en 325 MG / 05-15 not exceed l Hydrocodone 17:43: 4gm/day of [place] Bitartrate 00 acetaminop 10 MG Oral hen. (Same Tablet as: [place] 325/10) Acetaminoph No Notes: Do M emoria en 05-15 not exceed l 17:43: 4 gm/day. [place] 00 (Same as: Tylenol) protamine No Route: IV, Me moria (ANES) 05-15 Drug form: l (ANES) 17:37: INJ, Start Joanna nn date: 05/15/17 12:37:00 CDT, Stop date: 05/15/17 13:37:00 CDT protamine No Route: IV, Me moria (ANES) 05-15 Drug form: l (ANES) 17:37: INJ, Start Joanna nn date: 05/15/17 12:37:00 CDT, Stop date: 05/15/17 13:37:00 CDT protamine No Route: IV, Me moria (ANES) 8 Drug form: l (ANES) 17:37: INJ, Start Joanna nn date: 05/15/17 12:37:00 CDT, Stop date: 05/15/17 13:37:00 CDT fentaNYL No Route: IV, Mem oria (ANES) 8 Drug form: l 17:36: INJ, ONCE, Momo 00 Stop date: 05/15/17 12:36:00 CDT fentaNYL No Route: IV, Mem oria (ANES) 8 Drug form: l 17:36: INJ, ONCE, Stop date: 05/15/17 12:36:00 CDT fentaNYL 2017-0 No Route: IV, Mem oria (ANES) 05-15 Drug form: l 17:36: INJ, ONCE, [place] 00 Stop date: 05/15/17 12:36:00 CDT phenylephri No [...] ONCE, Stop date: 05/15/17 12:26:00 CDT phenylephri 0 No Route: IV, Memoria ne (ANES) 05-15 Drug form: l (ANES) 17:26: INJ, Start Joanna date: 05/15/17 12:26:00 CDT, Stop date: 05/15/17 13:26:00 CDT ePHEDrine 2016-0 No Route: IV, Me moria (ANES) 05-15 Drug form: l 17:26: INJ, ONCE, Stop date: 05/15/17 12:26:00 CDT phenylephri 2016-0 No Route: IV, Memoria ne (ANES) 05-15 Drug form: l 17:21: INJ, ONCE, Stop date: 05/15/17 12:21:00 CDT phenylephri 2017-0 No Route: IV, Memoria ne (ANES) 05-15 Drug form: l 17:21: INJ, ONCE, [place] 00 Stop date: 05/15/17 12:21:00 CDT phenylephri 2016- No Route: IV, Memoria ne (ANES) 05-15 Drug form: l 17:21: INJ, ONCE, [place] 00 Stop date: 05/15/17 12:21:00 CDT fentaNYL 20170 No Route: IV, Mem oria (ANES) 05-15 Drug form: l 17:16: INJ, ONCE, [place] 00 Stop date: 05/15/17 12:16:00 CDT fentaNYL 20170 No Route: IV, Mem oria (ANES) 05-15 Drug form: l 17:16: INJ, ONCE, Stop date: 05/15/17 12:16:00 CDT fentaNYL 2017-0 No Route: IV, Mem oria (ANES) 05-15 Drug form: l 17:16: INJ, ONCE, Stop date: 05/15/17 12:16:00 CDT midazolam 20170 No Route: IV, Me moria (ANES) 05-15 Drug form: l 17:11: SOLN, [place] ONCE, Stop date: 05/15/17 12:11:00 CDT propofol 2017-0 No Route: IV, Mem oria (ANES) 05-15 Drug form: l 17:11: INJ, ONCE, [place] 00 Stop date: 05/15/17 12:11:00 CDT midazolam 2017-0 No Route: IV, Me moria (ANES) 05-15 Drug form: l 17:11: SOLN, Momo ONCE, Stop date: 05/15/17 12:11:00 CDT propofol 2017-0 No Route: IV, Mem oria (ANES) 8 Drug form: l 17:11: INJ, ONCE, [place] 00 Stop date: 05/15/17 12:11:00 CDT midazolam 2017-0 No Route: IV, Me moria (ANES) 8 Drug form: l 17:11: SOLN, [place] ONCE, Stop date: 05/15/17 12:11:00 CDT propofol 2017-0 No Route: IV, Mem oria (ANES) 8-17 Drug form: l 17:11: INJ, ONCE, [place] 00 Stop date: 05/15/17 12:11:00 CDT vancomycin No Route: IV, Jossy emoria (ANES) 8 Drug form: l (ANES) 16:46: INJ, Start Joanna date: 05/15/17 11:46:00 CDT, Stop date: 05/15/17 12:46:00 CDT vancomycin No Route: IV, M emoria (ANES) 8 Drug form: l (ANES) 16:46: INJ, Start Joanna date: 05/15/17 11:46:00 CDT, Stop date: 05/15/17 12:46:00 CDT vancomycin No Route: IV, Jossy emoria (ANES) 05-15 Drug form: l (ANES) [...] 05/15/17 12:39:00 CDT Restoril No Notes: Memoria - (Same As: l 13:49: Restoril) Momo 00 Restoril No Notes: Memoria 8-17 (Same As: l 13:49: Restoril) Restoril 2016-0 No Notes: Memoria 8-17 (Same As: l 13:49: Restoril) Cefazolin No Notes: Memori a 8-17 Same as: l 13:00: Ancef Cefazolin No Notes: Memori a 8-17 Same as: l 13:00: Ancef Cefazolin 2016- No Notes: Memori a 8-17 Same as: l 13:00: Ancef sevelamer 2017-0 Yes 800 mg = 1 Me moria carbonate 8-10 tab, PO, l 800 MG Oral 18:46: PRN, with H ermann Tablet 00 snacks [Renvela] sevelamer 2017-0 Yes 800 mg = 1 Me moria carbonate 8-10 tab, PO, l 800 MG Oral 18:46: PRN, with H ermann Tablet 00 snacks [Renvela] sevelamer 2017-0 Yes 800 mg = 1 Me moria carbonate 8-10 tab, PO, l 800 MG Oral 18:46: PRN, with H ermann Tablet 00 snacks [Renvela] heparin 2016- No 4,000 Memoria 7-13 unit, 4 l 23:00: mL, Route: IV, Drug form: INJ, ONCALL, Start date: 04/10/17 18:00:00 CDT, Duration: 1 doses or times Sodium 2017-0 No 2,000 mL, Memori a Chloride 7-13 Route: IV, l 0.9% IV 23:00: Start date: 04/10/17 18:00:00 CDT, Duration: 1 doses or times heparin 2017-0 No 4,000 Memoria 7-13 unit, 4 l 23:00: mL, Route: [place] 00 IV, Drug form: INJ, ONCALL, Start date: 04/10/17 18:00:00 CDT, Duration: 1 doses or times Sodium 2017-0 No 2,000 mL, Memori a Chloride 7-13 Route: IV, l 0.9% IV 23:00: Start date: 04/10/17 18:00:00 CDT, Duration: 1 doses or times heparin 2017-0 No 4,000 Memoria 7-13 unit, 4 l 23:00: mL, Route: Momo 00 IV, Drug form: INJ, ONCALL, Start date: 04/10/17 18:00:00 CDT, Duration: 1 doses or times Sodium 2017-0 No 2,000 mL, Memori a Chloride 7-13 Route: IV, l 0.9% IV 23:00: Start Momo 00 date: 04/10/17 18:00:00 CDT, Duration: 1 doses or times famotidine No Notes: Memor ia 7-13 (Same as: l 14:00: Pepcid) Momo 00 Can be dilute in 5-10cc NS IVP: Slow IV push over at least 2 minutes. famotidine No Notes: Memor ia 7-13 (Same as: l 14:00: Pepcid) Momo 00 Can be dilute in 5-10cc NS IVP: Slow IV push over at least 2 minutes. famotidine No Notes: Memor ia 7-13 (Same as: l 14:00: Pepcid) [place] 00 Can be dilute in 5-10cc NS IVP: Slow IV push over at least 2 minutes. Streptococc No 0.5 mL, Mem oria us 7-13 Route: IM, l pneumoniae 02:41: Ngoc GARCIA serotype 1 27 Start capsular date: antigen 04/09/17 diphtheria 21:41:27 [id number] CDT, Stop protein date: conjugate 05/09/17 vaccine / 21:36:27 Streptococc CDT us pneumoniae serotype 14 capsular antigen diphtheria [id number] protein conjugate vaccine / Streptococc us pneumoniae serotype 18C capsular antigen d Streptococc No 0.5 mL, Mem oria us 7-13 Route: IM, l pneumoniae 02:41: Ngoc GARCIA elidia serotype 1 27 Start capsular date: antigen 04/09/17 diphtheria 21:41:27 [id number] CDT, Stop protein date: conjugate 05/09/17 vaccine / 21:36:27 Streptococc CDT us pneumoniae serotype 14 capsular antigen diphtheria [id number] protein conjugate vaccine / Streptococc us pneumoniae serotype 18C capsular antigen d Streptococc No 0.5 mL, Mem oria us 7-13 Route: IM, l pneumoniae 02:41: ONCALL, Herm elidia serotype 1 27 Start capsular date: antigen 04/09/17 diphtheria 21:41:27 [id number] CDT, Stop protein date: conjugate 05/09/17 vaccine / 21:36:27 Streptococc CDT us pneumoniae serotype 14 capsular antigen diphtheria [id number] protein conjugate vaccine / Streptococc us pneumoniae serotype 18C capsular antigen d heparin No Notes: Memoria 7-13 porcine l 00:10: heparin [place] heparin No Notes: Memoria 7-13 porcine l 00:10: heparin [place] heparin No Notes: Memoria 7-13 porcine l 00:10: heparin Momo Famotidine No 20 mg, Memor ia 7-13 Route: l 00:08: IVP, BID, Momo Dosing Weight 108, kg, Priority: STAT, Start date: 04/09/17 19:08:00 CDT, Duration: 30 day, Stop date: 05/09/17 17:00:00 CDT Hydralazine No Notes: Tico jessi 7-13 (Same as: l 00:08: Apresoline Momo 00 ) Push over 5 minutes Famotidine No 20 mg, Memor ia 7-13 Route: l 00:08: IVP, BID, [place]on Dosing Weight 108, kg, Priority: STAT, Start date: 04/09/17 19:08:00 CDT, Duration: 30 day, Stop date: 05/09/17 17:00:00 CDT Hydralazine No Notes: Tico jessi 7-13 (Same as: l 00:08: Apresoline Momo 00 ) Push over 5 minutes Famotidine No 20 mg, Memor ia 7-13 Route: l 00:08: IVP, BID, Momo Dosing Weight 108, kg, Priority: STAT, Start date: 04/09/17 19:08:00 CDT, Duration: 30 day, Stop date: 05/09/17 17:00:00 CDT Hydralazine No Notes: Tico jessi 7-13 (Same as: l 00:08: Apresoline Momo ) Push over 5 minutes Acetaminoph No Notes: Tico jessi en 325 MG / 7-13 (Same as: l Hydrocodone 00:06: [place] Joanna nn Bitartrate 00 325/5) Do 5 MG Oral not exceed Tablet 4gm/day of acetaminop hen. Docusate No Notes: Memoria 04-10 (Same as: l 00:06: Colace) [place] 00 (Do Not Crush) Ondansetron No Notes: Tico jessi 04-10 (Same as: l 00:06: Zofran) [place] 00 MEDICATION WASTE Product Size: 4 mg Product Wasted: ___ mg Acetaminoph No Notes: Do M emoria en 04-10 not exceed l 00:06: 4 gm/day. [place]on 00 (Same as: Tylenol) Acetaminoph No Notes: Tico jessi en 325 MG / 04-10 (Same as: l Hydrocodone 00:06: [place] Joanna nn Bitartrate 00 325/5) Do 5 MG Oral not exceed Tablet 4gm/day of acetaminop hen. Docusate No Notes: Memoria 04-10 (Same as: l 00:06: Colace) [place] 00 (Do Not Crush) Ondansetron No Notes: Tico jessi 04-10 (Same as: l 00:06: Zofran) [place] 00 MEDICATION WASTE Product Size: 4 mg Product Wasted: ___ mg Acetaminoph No Notes: Do M emoria en 04-10 not exceed l 00:06: 4 gm/day. [place]on 00 (Same as: Tylenol) Acetaminoph No Notes: Tico jessi en 325 MG / 04-10 (Same as: l Hydrocodone 00:06: [place] Joanna nn Bitartrate 00 325/5) Do 5 MG Oral not exceed Tablet 4gm/day of acetaminop hen. Docusate No Notes: Memoria 04-10 (Same as: l 00:06: Colace) Momo 00 (Do Not Crush) Ondansetron No Notes: Tico jessi 04-10 (Same as: l 00:06: Zofran) [place] 00 MEDICATION WASTE Product Size: 4 mg Product Wasted: ___ mg Acetaminoph No Notes: Do Jossy coker en 04-10 not exceed l 00:06: 4 gm/day. (Same as: Tylenol) Aspirin 325 No Notes: Tico jessi MG Oral 6-20 Take with l Tablet 14:00: food. Aspirin 325 No Notes: Tico jessi MG Oral 6-20 Take with l Tablet 14:00: food. Aspirin 325 No Notes: Tico jessi MG Oral 6-20 Take with l Tablet 14:00: food. HR Yes 30 mg = 1 Memoria Nifedipine 6-19 tab, PO, l 30 MG 20:55: Daily, # Momo Extended 00 30 tab, 1 Release Refill(s) Tablet 24 Yes 30 mg = 1 Memoria Nifedipine 6-19 tab, PO, l 30 MG 20:55: Daily, # [place]on Extended 00 30 tab, 1 Release Refill(s) Tablet Yes 30 mg = 1 Memoria Nifedipine 6-19 tab, PO, l 30 MG 20:55: Daily, # Momo Extended 00 30 tab, 1 Release Refill(s) Tablet 24 HR No 30 mg = 1 Memoria Nifedipine 6-19 tab, PO, l 30 MG 17:05: Daily, # [place] Extended 00 30 tab, 2 Release Refill(s) Tablet 24 HR No 30 mg = 1 Memoria Nifedipine 6-19 tab, PO, l 30 MG 17:05: Daily, # Momo Extended 00 30 tab, 2 Release Refill(s) Tablet 24 HR No 30 mg = 1 Memoria Nifedipine 6-19 tab, PO, l 30 MG 17:05: Daily, # [place]on Extended 00 30 tab, 2 Release Refill(s) Tablet Sodium No 2,000 mL, Memori a Chloride 6-19 8000 l 0.154 13:48: ml/hr, Momo MEQ/ML 00 Infuse Injectable Over: 15 Solution minutes, Route: IV, 2,000, Drug form: INJ, PRN, Dosing Weight 107.273 kg, Start date: 03/17/17 8:48:00 CDT, Duration: 24 hr, Stop date: 03/18/17 8:47:00 CDT, For Use by Dialysis nurse ONLY, PRN Dialysis heparin 2017-0 No 1,000 Memoria 6-19 unit, 1 l 13:48: mL, Route: Momo 00 IV Lock, Drug form: INJ, PRN, Dosing Weight 107.273, kg, PRN Dialysis, Start date: 03/17/17 8:48:00 CDT, Duration: 30 day, Stop date: 04/16/17 8:47:00 CDT Sodium 2017-0 No 2,000 mL, Memori a Chloride 6-19 8000 l 0.154 13:48: ml/hr, [place] MEQ/ML 00 Infuse Injectable Over: 15 Solution minutes, Route: IV, 2,000, Drug form: INJ, PRN, Dosing Weight 107.273 kg, Start date: 03/17/17 8:48:00 CDT, Duration: 24 hr, Stop date: 03/18/17 8:47:00 CDT, For Use by Dialysis nurse ONLY, PRN Dialysis heparin 2017-0 No 1,000 Memoria 6-19 unit, 1 l 13:48: mL, Route: [place] 00 IV Lock, Drug form: INJ, PRN, Dosing Weight 107.273, kg, PRN Dialysis, Start date: 03/17/17 8:48:00 CDT, Duration: 30 day, Stop date: 04/16/17 8:47:00 CDT Sodium 2017-0 No 2,000 mL, [facility] a Chloride 6-19 8000 l 0.154 13:48: ml/hr, [facility] MEQ/ML 00 Infuse Injectable Over: 15 Solution minutes, Route: IV, 2,000, Drug form: INJ, PRN, Dosing Weight 107.273 kg, Start date: 03/17/17 8:48:00 CDT, Duration: 24 hr, Stop date: 03/18/17 8:47:00 CDT, For Use by Dialysis nurse ONLY, PRN Dialysis heparin 2017-0 No 1,000 [facility] 6-19 unit, 1 l 13:48: mL, Route: [facility] 00 IV Lock, Drug form: INJ, PRN, Dosing Weight 107.273, kg, PRN Dialysis, Start date: 03/17/17 8:48:00 CDT, Duration: 30 day, Stop date: 04/16/17 8:47:00 CDT Losartan No Notes: [facility] 6-17 (Same as: l 14:00: Cozaar) Losartan No Notes: [facility] 6-17 (Same as: l 14:00: Cozaar) Losartan No Notes: [facility] 6-17 (Same as: l 14:00: Cozaar) metoprolol Yes 50 mg = 1 Me moria tartrate 50 6-16 tab, PO, l mg oral 18:20: Q12H, # 60 [facility] elidia tablet 00 tab, 1 Refill(s) metoprolol Yes 50 mg = 1 Me moria tartrate 50 6-16 tab, PO, l mg oral 18:20: Q12H, # 60 [facility] elidia tablet 00 tab, 1 Refill(s) metoprolol Yes 50 mg = 1 Me moria tartrate 50 6-16 tab, PO, l mg oral 18:20: Q12H, # 60 [facility] elidia tablet 00 tab, 1 Refill(s) heparin No 4,100 [facility] 6-16 unit, 4.1 l 13:47: mL, Route: Momo IV, Drug form: INJ, ONCE, Start date: 03/14/17 8:47:00 CDT, Stop date: 03/14/17 8:47:00 CDT heparin 2017-0 No 4,100 [facility] 6-16 unit, 4.1 l 13:47: mL, Route: Momo IV, Drug form: INJ, ONCE, Start date: 03/14/17 8:47:00 CDT, Stop date: 03/14/17 8:47:00 CDT heparin 2016-0 No 4,100 [facility] 6-16 unit, 4.1 l 13:47: mL, Route: [facility] IV, Drug form: INJ, ONCE, Start date: 03/14/17 8:47:00 CDT, Stop date: 03/14/17 8:47:00 CDT sodium 2017-0 No 1,000 mL, [facility]ori a chloride 03-14 Rate: For l 0.9% 1000 13:44: HD [...] day, Stop date: 04/11/17 18:01:00 CDT heparin 2016-0 No 10,000 [facility] 6-14 unit, 10 l 22:55: mL, Route: [facility] 00 INJ, Drug form: INJ, PRN, Dosing Weight 107.273, kg, PRN Dialysis, Start date: 03/12/17 17:55:00 CDT, Duration: 30 day, Stop date: 04/11/17 17:54:00 CDT heparin 2016-0 No 10,000 [facility] 6-14 unit, 10 l 22:55: mL, Route: [facility] 00 INJ, Drug form: INJ, PRN, Dosing Weight 107.273, kg, PRN Dialysis, Start date: 03/12/17 17:55:00 CDT, Duration: 30 day, Stop date: 04/11/17 17:54:00 CDT heparin 2016-0 No 10,000 [facility] 6-14 unit, 10 l 22:55: mL, Route: [facility] 00 INJ, Drug form: INJ, PRN, Dosing Weight 107.273, kg, PRN Dialysis, Start date: 03/12/17 17:55:00 CDT, Duration: 30 day, Stop date: 04/11/17 17:54:00 CDT Nifedical 2016-0 No Notes: [facility] a XL 6-13 (Same as: l 23:56: Adalat CC, [place] 00 Procardia XL) Give on empty stomach. Take 1 hour before or 2 hours after meal; "Avoid grapefruit and grapefruit juice". Do not crush Nifedical No Notes: [facility] a XL 6-13 (Same as: l 23:56: Adalat CC, [place] 00 Procardia XL) Give on empty stomach. Take 1 hour before or 2 hours after meal; "Avoid grapefruit and grapefruit juice". Do not crush Nifedical No Notes: Memori a XL 6-13 (Same as: l 23:56: Adalat CC, [place] 00 Procardia XL) Give on empty stomach. Take 1 hour before or 2 hours after meal; "Avoid grapefruit and grapefruit juice". Do not crush Protonix No Notes: Memoria 6-13 Tablet l 12:30: should not Weston 00 be chewed or crushed. (Same as: Protonix) Protonix No Notes: Memoria 6-13 Tablet l 12:30: should not Weston 00 be chewed or crushed. (Same as: Protonix) Protonix No Notes: Memoria 6-13 Tablet l 12:30: should not Momo 00 be chewed or crushed. (Same as: Protonix) Hydralazine No Notes: Tico jessi 6-13 (Same as: l 02:05: Apresoline Momo 00 ) Push over 5 minutes Hydralazine No Notes: Tico jesis 6-13 (Same as: l 02:05: Apresoline Weston 00 ) Push over 5 minutes Hydralazine No Notes: Tico jessi 6-13 (Same as: l 02:05: Apresoline Momo 00 ) Push over 5 minutes metoprolol No Notes: Memor ia tartrate 6-12 (Same as: l 23:59: Lopressor) Momo metoprolol No Notes: Memor ia tartrate 6-12 (Same as: l 23:59: Lopressor) Momo metoprolol No Notes: Memor ia tartrate 6-12 (Same as: l 23:59: Lopressor) Weston 00 Sodium No 1,000 mL, Memori a Chloride 6-12 Rate: 125 l 0.0769 23:57: ml/hr, Weston MEQ/ML 00 Infuse Injectable over: 8 Solution hr, Route: IV, Dosing Weight 102.955 kg, Total Volume: 1,000, Start date: 03/10/17 18:57:00 CDT, Duration: 30 day, Stop date: 04/09/17 18:56:00 CDT Nitroglycer No Notes: Tico jessi in 12 (Same l 23:57: as:Nitroqu Momo 00 ick, Nitrostat) "Do Not Crush" Sublingual tablet Hydralazine No Notes: Tico jessi -12 (Same as: l 23:57: Apresoline Momo 00 ) Push over 5 minutes Albuterol No Notes: Memori a 0.833 MG/ML -12 (Same as: l / 23:57: Duoneb) Momo Ipratropium 00 Farina 0.167 MG/ML Inhalant Solution [DuoNeb] Saline No Notes: Memoria Flush 0.9% -12 (Same as: l 23:57: BD [place] 00 Posiflush) Acetaminoph No Notes: Tico jessi en 325 MG / 12 (Same as: l Hydrocodone 23:57: [place] Joanna nn Bitartrate 00 325/5) Do 5 [...] -12 Rate: 125 l 0.0769 23:57: ml/hr, Momo MEQ/ML 00 Infuse Injectable over: 8 Solution hr, Route: IV, Dosing Weight 102.955 kg, Total Volume: 1,000, Start date: 03/10/17 18:57:00 CDT, Duration: 30 day, Stop date: 04/09/17 18:56:00 CDT Nitroglycer No Notes: Tico jessi in 03-10 (Same l 23:57: as:Nitroqu [place] 00 ick, Nitrostat) "Do Not Crush" Sublingual tablet Hydralazine No Notes: Tico jessi 03-10 (Same as: l 23:57: Apresoline Momo 00 ) Push over 5 minutes Albuterol No Notes: Memori a 0.833 MG/ML 03-10 (Same as: l / 23:57: Duoneb) Weston Ipratropium 00 Farina 0.167 MG/ML Inhalant Solution [DuoNeb] Saline No Notes: Memoria Flush 0.9% 03-10 (Same as: l 23:57: BD [place] 00 Posiflush) Acetaminoph No Notes: Tico jessi en 325 MG / 03-10 (Same as: l Hydrocodone 23:57: [place] Joanna nn Bitartrate 00 325/5) Do 5 MG Oral not exceed Tablet 4gm/day of acetaminop hen. Acetaminoph No Notes: Do M emoria en 12 not exceed l 23:57: 4 gm/day. Momo 00 (Same as: Tylenol) Morphine No Notes: Memoria 03-10 (Same l 23:57: as:MORPhin [place] 00 e Sulfate) Ondansetron No Notes: Tico jessi 03-10 (Same as: l 23:57: Zofran) Weston 00 MEDICATION WASTE Product Size: 4 mg Product Wasted: ___ mg Sodium No 1,000 mL, Memori a Chloride 03-10 Rate: 125 l 0.0769 23:57: ml/hr, Weston MEQ/ML 00 Infuse Injectable over: 8 Solution hr, Route: IV, Dosing Weight 102.955 kg, Total Volume: 1,000, Start date: 03/10/17 18:57:00 CDT, Duration: 30 day, Stop date: 04/09/17 18:56:00 CDT Nitroglycer No Notes: Tico jessi in 03-10 (Same l 23:57: as:Nitroqu Momo 00 ick, Nitrostat) "Do Not Crush" Sublingual tablet Hydralazine No Notes: Tico jessi - (Same as: l 23:57: Apresoline ) Push over 5 minutes Albuterol No Notes: Memori a 0.833 MG/ML 03-10 (Same as: l / 23:57: Duoneb) Momo Ipratropium 00 Farina 0.167 MG/ML Inhalant Solution [DuoNeb] Saline No Notes: Memoria Flush 0.9% 03-10 (Same as: l 23:57: BD [place] 00 Posiflush) Acetaminoph No Notes: Tico jessi en 325 MG / 03-10 (Same as: l Hydrocodone 23:57: [place] Joanna nn Bitartrate 00 325/5) Do 5 MG Oral not exceed Tablet 4gm/day of acetaminop hen. Acetaminoph No Notes: Do M emoria en 03-10 not exceed l 23:57: 4 gm/day. Weston 00 (Same as: Tylenol) Morphine No Notes: Memoria 03-10 (Same l 23:57: as:MORPhin e Sulfate) Ondansetron No Notes: Tico jessi 03-10 (Same as: l 23:57: Zofran) Momo 00 MEDICATION WASTE Product Size: 4 mg Product Wasted: ___ mg Rocephin No 1 gm, Memoria 03-10 Route: l 23:06: IVPB, Drug form: PDR/INJ, ONCE, Dosing Weight 102.955, kg, Priority: STAT, Start date: 03/10/17 18:06:00 CDT, Duration: 1 doses or times, Stop date: 03/10/17 18:06:00 CDT, ABX Indication : Urinary Tract Infection Rocephin No 1 gm, Memoria 03-10 Route: l 23:06: IVPB, Drug form: PDR/INJ, ONCE, Dosing Weight 102.955, kg, Priority: STAT, Start date: 03/10/17 18:06:00 CDT, Duration: 1 doses or times, Stop date: 03/10/17 18:06:00 CDT, ABX Indication : Urinary Tract Infection Connerhin No 1 gm, Memoria 6-12 Route: l 23:06: IVPB, Drug form: PDR/INJ, ONCE, Dosing Weight 102.955, kg, Priority: STAT, Start date: 03/10/17 18:06:00 CDT, Duration: 1 doses or times, Stop date: 03/10/17 18:06:00 CDT, ABX Indication : Urinary Tract Infection Saline No Notes: Memoria Flush 0.9% 6-12 (Same as: l 21:57: BD [place] 00 Posiflush) Saline No Notes: Memoria Flush 0.9% 6-12 (Same as: l 21:57: BD [place] 00 Posiflush) Saline No Notes: Memoria Flush 0.9% 6-12 (Same as: l 21:57: BD [place]on Posiflush) Ascorbic No 1 tab, Memoria Acid [...] Acid No 1 mg, 1 Tico jessi 3- tab, l 15:00: Route: PO, Drug form: TAB, Daily, Dosing Weight 87.7, kg, Start date: 11/27/13 9:00:00, Duration: 30 day, Stop date: 12/26/13 9:00:00([facility] as: Folvite) Thiamine No 100 mg, 1 Tico jessi 3-01 tab, l 15:00: Route: PO, Momo Drug form: TAB, Daily, Dosing Weight 87.7, kg, Start date: 11/27/13 9:00:00, Duration: 30 day, Stop date: 12/26/13 9:00:00([facility] As: Vitamin B1) Ascorbic No [...] Acid No 1 mg, 1 Tico jessi 3- tab, l 15:00: Route: PO, Weston 00 Drug form: TAB, Daily, Dosing Weight 87.7, kg, Start date: 11/27/13 9:00:00, Duration: 30 day, Stop date: 12/26/13 9:00:00([facility] as: Folvite) Thiamine No 100 mg, 1 Tico jessi 3- tab, l 15:00: Route: PO, Momo Drug form: TAB, Daily, Dosing Weight 87.7, kg, Start date: 11/27/13 9:00:00, Duration: 30 day, Stop date: 12/26/13 9:00:00([facility] As: Vitamin B1) Ascorbic No [...] 9:00:00, Duration: 30 day, Stop date: 12/26/13 9:00:00([facility] as: Folvite) Thiamine No 100 mg, 1 Tico jessi 3-01 tab, l 15:00: Route: PO, Momo 00 Drug form: TAB, Daily, Dosing Weight 87.7, kg, Start date: 11/27/13 9:00:00, Duration: 30 day, Stop date: 12/26/13 9:00:00([facility] As: Vitamin B1) thiamine Yes 100 mg = 1 Mem oria 100 mg oral 2-28 tab, PO, l tablet 19:21: Daily, # Weston 00 30 tab, 0 Refill(s) Multiple Yes [...] tab, PO, l tablet 19:21: Daily, # Weston 00 30 tab, 0 Refill(s) Acetaminoph Yes 1 tab, PO, Memoria en 325 MG / 2-28 Q6H, Pain, l Hydrocodone 19:21: # 30 tab, H ermann Bitartrate 00 0 7.5 MG Oral Refill(s) Tablet [[place] 7.5/325] thiamine Yes 100 mg = 1 [...] tab, PO, l Tablet 19:21: Daily, # Weston 00 30 tab, 0 Refill(s) amLODIPine Yes 10 mg = 2 Me moria 5 mg oral 2-28 tab, PO, l tablet 19:21: Daily, # Momo 00 30 tab, 0 Refill(s) Acetaminoph Yes 1 tab, PO, Memoria en 325 MG / 2-28 Q6H, Pain, l Hydrocodone 19:21: # 30 tab, H ermann Bitartrate 00 0 7.5 MG Oral Refill(s) Tablet [[place] 7.5/325] thiamine Yes 100 mg = 1 Mem oria 100 mg oral 2-28 tab, PO, l tablet 19:21: Daily, # Weston 00 30 tab, 0 Refill(s) Multiple Yes [...] tab, PO, l Tablet 19:21: Daily, # Weston 00 30 tab, 0 Refill(s) amLODIPine Yes 10 mg = 2 Me moria 5 mg oral 2-28 tab, PO, l tablet 19:21: Daily, # Weston 00 30 tab, 0 Refill(s) Acetaminoph Yes 1 tab, PO, Memoria en 325 MG / 2-28 Q6H, Pain, l Hydrocodone 19:21: # 30 tab, H ermann Bitartrate 00 0 7.5 MG Oral Refill(s) Tablet [[place] 7.5/325] Acetaminoph No 1 tab, Tico jessi en 325 MG / 2-28 Route: PO, l Hydrocodone 19:19: Drug Form: Momo Bitartrate 00 TAB, 7.5 MG Oral Dosing Tablet Weight [[place] 87.7, kg, 7.5/325] Q6H, PRN Pain, Start date: 11/26/13 13:19:00, Duration: 30 day, Stop date: 12/26/13 13:18:00Sa me as [place] 325-7.5mg Do not exceed 4gm/day of acetaminop hen. Acetaminoph No 1 tab, Tico jessi en 325 MG / 11-26 Route: PO, l Hydrocodone 19:19: Drug Form: Momo Bitartrate 00 TAB, 7.5 MG Oral Dosing Tablet Weight [[place] 87.7, kg, 7.5/325] Q6H, PRN Pain, Start date: 11/26/13 13:19:00, Duration: 30 day, Stop date: 12/26/13 13:18:00Sa me as [place] 325-7.5mg Do not exceed 4gm/day of acetaminop hen. Acetaminoph No 1 tab, Tico jessi en 325 MG / 11-26 Route: PO, l Hydrocodone 19:19: Drug Form: Weston Bitartrate 00 TAB, 7.5 MG Oral Dosing Tablet Weight [[place] 87.7, kg, 7.5/325] Q6H, PRN Pain, Start date: 11/26/13 13:19:00, Duration: 30 day, Stop date: 12/26/13 13:18:00Sa me as [place] 325-7.5mg Do not exceed 4gm/day of acetaminop hen. Norvasc No 10 mg, 2 Memori a 2-26 tab, l 21:25: Route: PO, Momo 00 Drug form: TAB, Daily, Dosing Weight 87.7, kg, Priority: NOW, Start date: 11/24/13 15:25:00, Duration: 30 day, Stop date: 12/24/13 9:00:00(Sa me as: Norvasc) Norvasc 0 No 10 mg, 2 Memori a 2-26 tab, l 21:25: Route: PO, Weston 00 Drug form: TAB, Daily, Dosing Weight 87.7, kg, Priority: NOW, Start date: 11/24/13 15:25:00, Duration: 30 day, Stop date: 12/24/13 9:00:00(Sa me as: Norvasc) Norvasc 2013-0 No 10 mg, 2 Memori a 2-26 tab, l 21:25: Route: PO, Drug form: TAB, Daily, Dosing Weight 87.7, kg, Priority: NOW, Start date: 11/24/13 15:25:00, Duration: 30 day, Stop date: 12/24/13 9:00:00(Sa me as: Norvasc) Ceftriaxone 2013-0 No 1 gm, Memor ia 2-26 Route: IV, l 10:07: ONCE, Dosing Weight 87.7, kg, Priority: STAT, Start date: 11/24/13 4:07:00, Stop date: 11/24/13 4:07:00(Sa me As: Rocephin). Use with 100ml NS mini-bag PLUS and infuse over 30 min Ceftriaxone 2013-0 No 1 gm, Memor ia 2-26 Route: IV, l 10:07: ONCE, Dosing Weight 87.7, kg, Priority: STAT, Start date: 11/24/13 4:07:00, Stop date: 11/24/13 4:07:00(Sa me As: Rocephin). Use with 100ml NS mini-bag PLUS and infuse over 30 min Ceftriaxone 2013-0 No 1 gm, Memor ia 2-26 Route: [...] ia 2-26 tab, l 10:06: Route: NG, Weston 00 Drug form: TAB, Q4H, Dosing Weight 87.7, kg, PRN as needed for fever, Start date: 11/24/13 4:06:00, Duration: 30 day, Stop date: 12/24/13 4:05:00Do not exceed 4 gm/day. (Same as: Tylenol) Vancomycin 2013-0 No 1 gm, 200 Me moria 2-26 mL, Route: l 10:06: IV, Drug Weston 00 form: INJ, ONCE, Dosing Weight 87.7, [...] 2-26 mL, Route: l 10:06: IV, Drug Weston 00 form: INJ, ONCE, Dosing Weight 87.7, [...] date: 12/23/13 9:00:00(Sa me as: Lopressor) Lopressor 2014-0 No 50 mg, 1 Tico jessi 2-26 tab, l 03:00: Route: PO, Momo 00 Drug form: TAB, Q12H, Dosing Weight 87.7, kg, Start date: 11/23/13 21:00:00, Stop date: 12/23/13 9:00:00(Sa me as: Lopressor) pantoprazol 2013-0 No 40 mg, Tico jessi e 2-25 Route: l 15:00: IVP, Weston Daily, Dosing Weight 90.909, kg, Start date: 11/23/13 9:00:00, Duration: 30 day, Stop date: 12/22/13 9:00:00For IV push reconstitu te with 10 ml 0.9% sodium chloride and push over 2 minutes. (Same as: Protonix) pantoprazol 2013-0 No 40 mg, Tico jessi e 2-25 Route: l 15:00: IVP, Weston Daily, Dosing Weight 90.909, kg, Start date: 11/23/13 9:00:00, Duration: 30 day, Stop date: 12/22/13 9:00:00For IV push reconstitu te with 10 ml 0.9% sodium chloride and push over 2 minutes. (Same as: Protonix) pantoprazol 2013-0 No 40 mg, Tico jessi e 2-25 Route: l 15:00: IVP, Weston 00 Daily, Dosing Weight 90.909, kg, Start date: 11/23/13 9:00:00, Duration: 30 day, Stop date: 12/22/13 9:00:00For IV push reconstitu te with 10 ml 0.9% sodium chloride and push over 2 minutes. (Same as: Protonix) Saline 2014-0 No 5 ml, Memoria Flush 0.9% 2-25 Route: l 03:00: IVP, Drug Momo 00 Form: INJ, Dosing Weight 90.909, kg, Q12H, [...] 0.9% 2-25 Route: l 03:00: IVP, Drug Momo 00 Form: INJ, Dosing Weight 90.909, kg, Q12H, Start date: 11/22/13 21:00:00, Duration: 30 day, Stop date: 12/22/13 9:00:00(Sa me as: BD Posiflush) Docusate 2013-0 No 100 mg, 10 Mem oria 2-25 mL, Route: l 03:00: PO, Drug Weston 00 form: LIQ, Q12H, Dosing Weight 90.909, kg, Start date: 11/22/13 21:00:00, Stop date: 12/22/13 9:00:00(Sa me as: Colace) Saline 2013-0 No 5 ml, Memoria Flush 0.9% 2-25 Route: l 03:00: IVP, Drug Momo 00 Form: INJ, Dosing Weight 90.909, kg, Q12H, Start date: 11/22/13 21:00:00, Duration: 30 day, Stop date: 12/22/13 9:00:00(Sa me as: BD Posiflush) Docusate 2013-0 No 100 mg, 10 Mem oria 2-25 mL, Route: l 03:00: PO, Drug Weston 00 form: LIQ, Q12H, Dosing Weight 90.909, kg, Start date: 11/22/13 21:00:00, Stop date: 12/22/13 9:00:00(Sa wa as: Colace) Sodium 2014-0 No 1,000 mL, Memori a Chloride 2-24 Rate: 75 l 0.9% IV 22:38: ml/hr, Weston 1,000 mL 00 Infuse over: 13.3 hr, Route: IV, Dosing Weight 87.7 kg, Total Volume: 1,000, Start date: 11/22/13 16:38:00, Duration: 3 day, Stop date: 11/25/13 16:37:00 Sodium 2014-0 No 1,000 mL, Memori a Chloride 2-24 Rate: 75 l 0.9% IV 22:38: ml/hr, Weston 1,000 mL 00 Infuse over: 13.3 hr, [...] 2-24 Rate: 75 l 0.154 22:08: ml/hr, Weston MEQ/ML 00 Infuse Injectable over: 13.5 Solution hr, Route: IV, Dosing Weight 87.7 kg, Total Volume: 1,011.2, Start date: 11/22/13 16:08:00, Duration: 3 day, Stop date: 11/25/13 16:07:00 Sodium 2014-0 No 1,000 mL, Memori a Chloride 2-24 Rate: 75 l 0.154 22:08: ml/hr, Weston MEQ/ML 00 Infuse Injectable over: 13.5 Solution [...] 2-24 mL, Route: l 22:05: IV, Drug Momo 00 form: INJ, Q8H, Dosing Weight 87.7, kg, PRN Nausea, Start date: 11/22/13 16:05:00, Duration: 30 day, Stop date: 12/22/13 17:04:00(S anthony as: Zofran) Ativan 2014-0 No 1 mg, 0.5 Memori a 2-24 mL, Route: l 22:05: IVP, Drug Weston 00 form: INJ, Q3H, Dosing Weight 87.7, [...] 2-24 mL, Route: l 22:05: IV, Drug Weston 00 form: INJ, Q8H, Dosing Weight 87.7, [...] 2-24 mL, Route: l 22:05: IV, Drug Momo 00 form: INJ, Q8H, Dosing Weight 87.7, kg, PRN Nausea, Start date: 11/22/13 16:05:00, Duration: 30 day, Stop date: 12/22/13 17:04:00(S anthony as: Zofran) Saline 2014-0 No 5 ml, Memoria Flush 0.9% 2-24 Route: l 21:21: IVP, Drug Weston 00 Form: INJ, Dosing Weight 90.909, kg, PRN, PRN Line Flush, Start date: 11/22/13 15:21:00, Duration: 30 day, Stop date: 12/22/13 16:20:00(S anthony as: BD Posiflush) Nicardipine 2013-0 No 40 mg, 200 Memoria 2-24 mL, Rate: l 21:21: Start at 5 Weston 00 mgTitrate to maintain SBP 110-150 mmHg., Dosing Weight 90.909, kg, Route: IV, Total Volume: 200, Start Date: 11/22/13 15:21:00, Duration: 30 day, Stop date: 12/22/13 15:20:00, Replace Every: 24 hrSame as: Cardene Concentrat ion: (0.2 mg /1 ml ) Magnesium 2013-0 No 30 mL, Memori a Hydroxide 2-24 Route: PO, l 21:21: Drug Form: SUSP, Dosing Weight 90.909, kg, BID, PRN [...] 12/22/13 16:20:00(S anthony as: BD Posiflush) Nicardipine 2013- No 40 mg, 200 Memoria 2-24 mL, Rate: l 21:21: Start at 5 Momo 00 mgTitrate to maintain SBP 110-150 mmHg., Dosing Weight 90.909, kg, Route: IV, Total Volume: 200, Start Date: 11/22/13 15:21:00, Duration: 30 day, Stop date: 12/22/13 15:20:00, Replace Every: 24 hrSame as: Cardene Concentrat ion: (0.2 mg /1 ml ) Magnesium 2013-0 No 30 mL, Memori a Hydroxide 2-24 Route: PO, l 21:21: Drug Form: Weston 00 SUSP, Dosing Weight 90.909, kg, BID, [...] 12/22/13 16:20:00(S anthony as: BD Posiflush) Nicardipine No 40 mg, 200 Memoria 2-24 [...] 2-24 Route: PO, l 21:21: Drug Form: SUSP, Dosing Weight 90.909, kg, BID, PRN [...] 2-24 mL, Route: l 21:07: IVP, Drug Weston 00 form: INJ, Q4H, Dosing Weight 90.909, kg, PRN Elevated BP, Start date: 11/22/13 15:07:00, Duration: 30 day, Stop date: 12/22/13 15:06:00, SBP>150(Sa me as: Apresoline ) Push over 5 minutes Labetalol 2013-0 No 20 mg, 4 Tico jessi 2-24 [...] 21:07: IVP, Drug Momo 00 form: INJ, Q4H, Dosing Weight 90.909, kg, PRN Elevated BP, Start date: 11/22/13 15:07:00, Duration: 30 day, Stop date: 12/22/13 15:06:00, SBP>150(Sa me as: Apresoline ) Push over 5 minutes Labetalol 2013-0 No 20 mg, 4 Tico jessi 2-24 [...] 2-24 mL, Route: l 21:07: IVP, Drug Mmoo 00 form: INJ, Q4H, Dosing Weight 90.909, kg, PRN Elevated BP, Start date: 11/22/13 15:07:00, Duration: 30 day, Stop date: 12/22/13 15:06:00, SBP>150(Sa me as: Apresoline ) Push over 5 minutes Nicardipine 2013-0 No 40 mg, 200 Memoria 2-24 mL, Rate: l 18:57: Titrate Dosing Weight 90.909, kg, Route: IV, Total Volume: 200 mL, Start Date: 11/22/13 12:57:00, Duration: 30 day, Stop date: 12/22/13 12:56:00, Replace Every: 24 hrSame as: Cardene Concentrat ion: (0.2 mg /1 ml ) Nicardipine 2013-0 No 40 mg, 200 Memoria 2-24 mL, Rate: l 18:57: Titrate Dosing Weight 90.909, kg, Route: IV, Total Volume: 200 mL, Start Date: 11/22/13 12:57:00, Duration: 30 day, Stop date: 12/22/13 12:56:00, Replace Every: 24 hrSame as: Cardene Concentrat ion: (0.2 mg /1 ml ) Nicardipine 2013-0 No 40 mg, 200 Memoria [...] 12/22/13 13:45:00(S anthony as: BD Posiflush) Saline 2014-0 No 5 mL, Memoria Flush 0.9% 2-24 [...] n 55 tab, Substituti on Allowed, TAB [place] Yes Rj 1-2 tab, Memori a 7.5/325 2-05 Maia PO, Q4-6H, l oral tablet 15:06: PRN, 20 Her bertrand 43 tab, Pain, Substituti on Allowed, Maintenanc e [place] Yes Rj 1-2 tab, Memori a 7.5/325 2-05 Maia PO, Q4-6H, l oral tablet 15:06: PRN, 20 Her bertrand 43 tab, Pain, Substituti on Allowed, Maintenanc e [place] Yes Rj 1-2 tab, Memori a 7.5/325 2-05 Maia PO, Q4-6H, l oral tablet 15:06: PRN, 20 Her ebrtrand 43 tab, Pain, Substituti on Allowed, Maintenanc e Motrin 2012-0 No Rj 600 mg, 1 Tico jessi 2-05 Maia tab, l 14:29: Route: PO, Weston Drug form: TAB, ONCE, Dosing Weight 79.545, kg, Priority: STAT, Start date: 11/03/12 8:29:00, Stop date: 11/03/12 8:29:00 Motrin 2012-0 No Rj 600 mg, 1 Tico jessi 2-05 Maia tab, l 14:29: Route: PO, Momo 00 Drug form: TAB, ONCE, Dosing Weight 79.545, kg, Priority: STAT, Start date: 11/03/12 8:29:00, Stop date: 11/03/12 8:29:00 Motrin 2012-0 No Rj 600 mg, 1 Tico jessi [...] 11/03/12 7:48:00, Stop date: 11/03/12 7:48:00 clonidine 2012-0 No Carolina 0.1 mg, 1 Memoria 2-05 Jackie tab, l 13:48: Route: PO, Drug form: TAB, ONCE, Dosing Weight 79.545, kg, Priority: STAT, Start date: 11/03/12 7:48:00, Stop date: 11/03/12 7:48:00 clonidine 2012-0 No Carolina 0.1 mg, 1 Memoria 2-05 Jackie tab, l 13:48: Route: PO, Weston 00 Drug form: TAB, ONCE, Dosing Weight 79.545, kg, Priority: STAT, Start date: 11/03/12 7:48:00, Stop date: 11/03/12 7:48:00 IDS med 0 No Montez IV, 333.33 Me moria 4-11 Garth ml/hr, l 22:00: Nila ONCE, Start date: 01/08/12 17:00:00, 1,000 ml IDS med No Montez IV, 333.33 Me moria 4-11 Garth ml/hr, l 22:00: Nila ONCE, Start date: 01/08/12 17:00:00, 1,000 ml IDS med No Montez IV, 333.33 Me moria 4-11 Garth ml/hr, l 22:00: Nila ONCE, Start date: 01/08/12 17:00:00, 1,000 ml [place] 5/325 No Mohan 1 tab, Memoria oral tablet 4- Ahmed Route: PO, l 21:22: ONCE, Start date: 01/08/12 16:22:00, Stop date: 01/08/12 16:22:00 [place] 5/325 No Mohan 1 tab, Memoria oral tablet 4-11 Ahmed Route: PO, l 21:22: ONCE, Start date: 01/08/12 16:22:00, Stop date: 01/08/12 16:22:00 [place] 5/325 No Mohan 1 tab, Memoria oral [...] Memoria 4-11 Allen Rate: l 19:56: 1,000 Weston 00 ml/hr, Infuse over: 1 hr, Route: IV, Dosing Weight 115.5 kg, Total Volume: 1,000, Start date: 01/08/12 14:56:00, Duration: 30 day, Stop date: 02/07/12 14:55:00 NS 1,000 mL No Manuel M 1,000 mL, Memoria 01-07 Allen Rate: l 19:56: 1,000 Weston 00 ml/hr, Infuse over: 1 hr, Route: IV, Dosing Weight 115.5 kg, Total Volume: 1,000, Start date: 01/08/12 14:56:00, Duration: 30 day, Stop date: 02/07/12 14:55:00 Naprosyn Yes Mohan 375 mg, Me moria 375 mg oral 4-11 Ahmed PO, BID, l tablet 18:55: PRN, 30 Momo 47 tab, Pain, Substituti on Allowed Naprosyn Yes Mohan 375 mg, Me moria 375 mg oral 4-11 Ahmed PO, BID, l tablet 18:55: PRN, 30 Weston 47 tab, Pain, Substituti on Allowed Naprosyn Yes Mohan 375 mg, Me moria 375 mg oral 4-11 Ahmed PO, BID, l tablet 18:55: PRN, 30 Momo 47 tab, Pain, Substituti on Allowed Vicodin [...] virus 2018-06-29 Completed [facility] vaccine, live, 00:00:00 Weston trivalent influenza virus 2018-06-29 Completed [facility] vaccine, live, 00:00:00 Weston trivalent influenza virus 2018-06-22 Completed [facility] vaccine, inactivated 00:00:00 Herm elidia influenza virus 2018-06-22 Completed [facility] vaccine, inactivated 00:00:00 Herm elidia influenza virus 2018-06-22 Completed [facility] vaccine, inactivated 00:00:00 Herm elidia hepatitis B adult 2018-05-18 Completed Memoria l vaccine 00:00:00 Weston hepatitis B adult 2018-05-18 Completed Memoria l vaccine 00:00:00 Weston hepatitis B adult 2018-05-18 Completed Memoria l vaccine 00:00:00 Momo hepatitis B adult 2018-01-23 Completed Memoria l vaccine 00:00:00 Momo hepatitis B adult 2018-01-23 Completed Memoria l vaccine 00:00:00 Momo hepatitis B adult 2018-01-23 Completed Memoria l vaccine 00:00:00 Momo hepatitis B adult 2017-12-22 Completed Memoria l vaccine 00:00:00 Momo hepatitis B adult 2017-12-22 Completed Memoria l vaccine 00:00:00 Weston hepatitis B adult 2017-12-22 Completed Memoria l vaccine 00:00:00 Weston hepatitis B adult 2017-11-24 Completed Memoria l vaccine 00:00:00 Weston hepatitis B adult 2017-11-24 Completed Memoria l vaccine 00:00:00 Momo hepatitis B adult 2017-11-24 Completed Memoria l vaccine 00:00:00 Weston hepatitis B adult 2017-10-03 Completed [facility] vaccine 00:00:00 [place] hepatitis B adult 2017-10-03 Completed [facility] vaccine 00:00:00 [place] hepatitis B adult 2017-10-03 Completed [facility] 00:00:00 [place] influenza virus 2017-06-09 Completed [facility], inactivated 00:00:00 [facility] elidia influenza virus 2017-06-09 Completed [facility] vaccine, inactivated 00:00:00 [facility] elidia influenza virus 2017-06-09 Completed [facility] vaccine, inactivated 00:00:00 [facility] elidia hepatitis B adult 2017-06-04 Completed [facility] 00:00:00 [place] hepatitis B adult 2017-06-04 Completed [facility] vaccine 00:00:00 [facility] hepatitis B adult 2017-06-04 Completed [facility] vaccine 00:00:00 [place] hepatitis B adult 2017-05-02 Completed [facility] vaccine 00:00:00 [place] hepatitis B adult 2017-05-02 Completed [facility] vaccine 00:00:00 [facility] hepatitis B adult 2017-05-02 Completed [facility] 00:00:00 [place] pneumococcal 2017-04-11 Completed [facility] 13-valent vaccine 00:32:00 [place] pneumococcal 2017-04-11 Completed [facility] 13-valent vaccine 00:32:00 [facility] pneumococcal 2017-04-11 Completed [facility] 13-valent vaccine 00:32:00 [place] pneumococcal 2017-04-11 Completed [facility] 23-valent vaccine 00:00:00 [place] pneumococcal 2017-04-11 Completed [facility] 23-valent vaccine 00:00:00 [facility] pneumococcal 2017-04-11 Completed [facility] 23-valent vaccine 00:00:00 [place] hepatitis B adult 2017-03-29 Completed [facility] 00:00:00 [place] hepatitis B adult 2017-03-29 Completed [facility] vaccine 00:00:00 [facility] hepatitis B adult 2017-03-29 Completed [facility] 00:00:00 [place] Vital Signs Vital Name Observation Time Observation Value Comments Source Systolic blood 2022-12-02 22:30:00 159 mm[Hg] Univer sity of pressure [facility] Diastolic blood 2022-12-02 22:30:00 99 mm[Hg] Unive rsity of pressure [facility] Heart rate 2022-12-02 22:30:00 78 /min [facility] Respiratory rate 2022-12-02 22:30:00 18 /min General acute hospital Oxygen saturation in 2022-12-02 22:30:00 100 /min [facility] Arterial blood by [facility] Pulse oximetry [facility] Body temperature 2022-12-02 17:38:00 36.33 [facility] height 2022-12-02 17:38:00 170.2 cm [facility] Body weight 2022-12-02 17:38:00 92.987 kg [facility] BMI 2022-12-02 17:38:00 32.11 kg/m2 [facility] Systolic (mm Hg) 2022-12-14 12:49:16 Tico rial [place] Diastolic (mm Hg) 2022-12-14 12:49:16 Mem o[facility] [place] Heart Rate 2022-12-14 12:49:16 [facility] Temperature Oral (F) 2022-12-14 12:49:02 98.3 F [facility] [place] Respitory Rate 2022-12-09 15:09:00 [facility] [facility] Respitory Rate 2022-12-09 15:00:00 [facility] Systolic (mm Hg) 2022-12-09 15:00:00 Tico [facility] Diastolic (mm Hg) 2022-12-09 15:00:00 [facility] Temperature Oral (F) 2022-12-09 15:00:00 98.5 F [facility] Respitory Rate 2022-12-09 14:45:00 [facility] Systolic (mm Hg) 2022-12-09 14:45:00 [facility] Diastolic (mm Hg) 2022-12-09 14:45:00 [facility] Systolic (mm Hg) 2022-12-09 14:30:00 Tico [facility] Diastolic (mm Hg) 2022-12-09 14:30:00 [facility] Temperature Oral (F) 2022-12-09 11:00:00 98.3 F [facility] Heart Rate 2022-12-09 04:14:31 [facility] Heart Rate 2022-12-09 04:13:28 [facility] Temperature Oral (F) 2022-12-09 04:13:00 97.9 F [facility] Heart Rate 2022-12-09 02:07:00 [facility] Temperature Oral (F) 2022-12-04 21:47:07 98.1 F [facility] Height 2022-12-03 02:25:00 5 [ft_i] [facility] Weight 2022-12-03 02:25:00 [facility] BMI Calculated 2022-12-03 02:25:00 [facility] Temperature Oral (F) 2019-08-20 19:22:00 98.6 F [facility] Heart Rate 2019-08-20 19:22:00 [facility] Respitory Rate 2019-08-20 19:22:00 [facility] Systolic (mm Hg) 2019-08-20 19:22:00 Tico rial [facility] Diastolic (mm Hg) 2019-08-20 19:22:00 [facility] Temperature Oral (F) 2019-08-20 18:00:00 98.6 F [facility] Heart Rate 2019-08-20 18:00:00 [facility] Respitory Rate 2019-08-20 18:00:00 [facility] Systolic (mm Hg) 2019-08-20 18:00:00 Tico [facility] Diastolic (mm Hg) 2019-08-20 18:00:00 [facility] Temperature Oral (F) 2019-08-20 14:01:00 98.2 F [facility] Heart Rate 2019-08-20 14:01:00 [facility] Respitory Rate 2019-08-20 14:01:00 [facility] Systolic (mm Hg) 2019-08-20 14:01:00 [facility] Diastolic (mm Hg) 2019-08-20 14:01:00 [facility] Height 2019-08-19 18:35:00 170.18 cm [facility] BMI Calculated 2019-08-19 18:35:00 [facility] Weight 2019-08-19 18:35:00 [facility] Systolic (mm Hg) 2019-01-26 20:26:00 Tico [facility] Diastolic (mm Hg) 2019-01-26 20:26:00 [facility] Heart Rate 2019-01-26 20:26:00 [facility] Systolic (mm Hg) 2019-01-21 19:27:00 Tico rial [facility] Diastolic (mm Hg) 2019-01-21 19:27:00 [facility] Heart Rate 2019-01-21 19:27:00 [facility] Heart Rate 2019-01-19 18:16:00 [facility] Systolic (mm Hg) 2019-01-19 18:16:00 Tico [facility] Diastolic (mm Hg) 2019-01-19 18:16:00 [facility] Systolic (mm Hg) 2018-12-17 19:33:00 [facility] Diastolic (mm Hg) 2018-12-17 19:33:00 [facility] Heart Rate 2018-12-17 19:33:00 [facility] Systolic (mm Hg) 2018-12-15 17:50:00 [facility] Diastolic (mm Hg) 2018-12-15 17:50:00 [facility] Heart Rate 2018-12-15 17:50:00 [facility] Height 2018-09-23 23:23:00 170.18 cm [facility] BMI Calculated 2018-09-23 23:23:00 [facility] Weight 2018-09-23 23:23:00 [facility] BMI Calculated 2018-08-25 19:57:00 [facility] Weight 2018-08-25 19:57:00 [facility] Height 2018-08-25 19:57:00 167.64 cm [facility] Systolic (mm Hg) 2018-08-25 19:57:00 Tico [facility] Diastolic (mm Hg) 2018-08-25 19:57:00 [facility] Heart Rate 2018-08-25 19:57:00 [facility] Temperature Oral (F) 2018-08-25 19:57:00 98.1 F [facility] Systolic (mm Hg) 2018-07-30 16:56:00 [facility] Diastolic (mm Hg) 2018-07-30 16:56:00 [facility] Heart Rate 2018-07-30 16:56:00 [facility] Systolic (mm Hg) 2018-07-28 19:50:00 [facility] Diastolic (mm Hg) 2018-07-28 19:50:00 [facility] Respitory Rate 2018-07-28 19:50:00 [facility] Temperature Oral (F) 2018-07-28 19:50:00 98 F [facility] Respitory Rate 2018-07-28 19:12:00 [facility] Systolic (mm Hg) 2018-07-28 19:12:00 [facility] Diastolic (mm Hg) 2018-07-28 19:12:00 [facility] Systolic (mm Hg) 2018-07-28 18:58:00 Tico [facility] Diastolic (mm Hg) 2018-07-28 18:58:00 [facility] Respitory Rate 2018-07-28 18:58:00 [facility] Heart Rate 2018-07-28 18:58:00 [facility] Weight 2018-07-28 17:47:00 [facility] Temperature Oral (F) 2018-07-28 17:47:00 98.7 F [facility] Heart Rate 2018-07-28 17:47:00 [facility] Systolic (mm Hg) 2018-07-28 15:19:00 Tico rial [facility] Diastolic (mm Hg) 2018-07-28 15:19:00 [facility] Heart Rate 2018-07-28 15:19:00 [facility] Systolic (mm Hg) 2018-07-23 16:28:00 [facility] Diastolic (mm Hg) 2018-07-23 16:28:00 [facility] Heart Rate 2018-07-23 16:28:00 [facility] Heart Rate 2018-07-16 16:29:00 [facility] Systolic (mm Hg) 2018-07-16 16:29:00 [facility] Diastolic (mm Hg) 2018-07-16 16:29:00 [facility] Systolic (mm Hg) 2018 17:51:00 [facility] Diastolic (mm Hg) 2018 17:51:00 [facility] Heart Rate 2018 17:51:00 [facility] Systolic (mm Hg) 2018-07-07 17:55:00 T[facility] Diastolic (mm Hg) 2018-07-07 17:55:00 [facility] Heart Rate 2018-07-07 17:55:00 [facility] Heart Rate 2018-06-16 16:31:00 [facility] Systolic (mm Hg) 2018-06-16 16:31:00 Tico [facility] Diastolic (mm Hg) 2018-06-16 16:31:00 [facility] Systolic (mm Hg) 2018-06-11 16:04:00 T[facility] Diastolic (mm Hg) 2018-06-11 16:04:00 [facility] Heart Rate 2018-06-11 16:04:00 [facility] Heart Rate 2018-06-04 17:34:00 [facility] Systolic (mm Hg) 2018-06-04 17:34:00 Tico [facility] Diastolic (mm Hg) 2018-06-04 17:34:00 [facility] Weight 2018-04-14 14:24:00 [facility] BMI Calculated 2018-04-14 14:24:00 [facility] Height 2018-04-14 14:24:00 167.64 cm [facility] Heart Rate 2018-04-14 14:24:00 [facility] Temperature Oral (F) 2018-04-14 14:24:00 98.3 F [facility] Systolic (mm Hg) 2018-04-14 14:24:00 [facility] Diastolic (mm Hg) 2018-04-14 14:24:00 [facility] BMI Calculated 2018-03-02 13:49:00 [facility] Weight 2018-03-02 13:49:00 [facility] Height 2018-03-02 13:49:00 177.8 cm [facility] Temperature Oral (F) 2018-03-02 11:50:00 98 F [facility] Systolic (mm Hg) 2018-03-02 11:50:00 T[facility] Diastolic (mm Hg) 2018-03-02 11:50:00 [facility] Respitory Rate 2018-03-02 11:50:00 [facility] Height 2018-02-25 19:39:00 167.64 cm [facility] Weight 2018-02-25 19:39:00 [facility] BMI Calculated 2018-02-25 19:39:00 [facility] Systolic (mm Hg) 2018-02-25 19:39:00 [facility] Diastolic (mm Hg) 2018-02-25 19:39:00 [facility] Heart Rate 2018-02-25 19:39:00 [facility] Temperature Oral (F) 2018-02-25 19:39:00 97.7 F [facility] Systolic (mm Hg) 2018-02-24 23:15:00 [facility] Diastolic (mm Hg) 2018-02-24 23:15:00 [facility] Systolic (mm Hg) 2018-02-24 23:00:00 [facility] Diastolic (mm Hg) 2018-02-24 23:00:00 [facility] Systolic (mm Hg) 2018-02-24 22:30:00 [facility] Diastolic (mm Hg) 2018-02-24 22:30:00 [facility] Respitory Rate 2018-02-24 22:27:00 [facility] Heart Rate 2018-02-24 22:27:00 [facility] Respitory Rate 2018-02-24 22:00:00 [facility] Heart Rate 2018-02-24 22:00:00 [facility] Respitory Rate 2018-02-24 21:45:00 [facility] Heart Rate 2018-02-24 21:45:00 [facility] BMI Calculated 2018-02-24 21:28:00 [facility] Height 2018-02-24 21:28:00 170.18 cm [facility] Weight 2018-02-24 21:28:00 [facility] Temperature Oral (F) 2018-02-24 21:28:00 98.4 F [facility] Heart Rate 2018-01-27 22:41:00 [facility] Temperature Oral (F) 2018-01-27 22:41:00 99 F [facility] Respitory Rate 2018-01-27 22:41:00 [facility] Systolic (mm Hg) 2018-01-27 22:41:00 [facility] Diastolic (mm Hg) 2018-01-27 22:41:00 [facility] Systolic (mm Hg) 2018-01-27 19:47:00 [facility] Diastolic (mm Hg) 2018-01-27 19:47:00 [facility] Heart Rate 2018-01-27 19:47:00 [facility] BMI Calculated 2018-01-27 19:47:00 [facility] Weight 2018-01-27 19:47:00 [facility] Respitory Rate 2018-01-27 19:47:00 [facility] Temperature Oral (F) 2018-01-27 19:47:00 97.7 F [facility] Height 2018-01-27 19:47:00 170.18 cm [facility] Weight 2018-01-27 13:45:00 [facility] BMI Calculated 2018-01-27 13:45:00 [facility] Heart Rate 2018-01-27 13:45:00 [facility] Respitory Rate 2018-01-27 13:45:00 [facility] Height 2018-01-27 13:45:00 168 cm [facility] Systolic (mm Hg) 2018-01-27 13:45:00 [facility] Diastolic (mm Hg) 2018-01-27 13:45:00 [facility] Systolic (mm Hg) 2018-01-01 17:45:00 T[facility] Diastolic (mm Hg) 2018-01-01 17:45:00 [facility] Respitory Rate 2018-01-01 17:45:00 [facility] Respitory Rate 2018-01-01 17:30:00 [facility] Systolic (mm Hg) 2018-01-01 17:30:00 [facility] Diastolic (mm Hg) 2018-01-01 17:30:00 [facility] Respitory Rate 2018-01-01 17:15:00 [facility] Systolic (mm Hg) 2018-01-01 17:15:00 [facility] Diastolic (mm Hg) 2018-01-01 17:15:00 [facility] Temperature Oral (F) 2018-01-01 12:03:00 97.8 F [facility] BMI Calculated 2017-12-31 20:21:00 [facility] Weight 2017-12-31 20:21:00 [facility] Height 2017-12-31 20:21:00 170.18 cm [facility] Systolic (mm Hg) 2017-11-13 22:30:00 [facility] Diastolic (mm Hg) 2017-11-13 22:30:00 [facility] Respitory Rate 2017-11-13 22:30:00 [facility] Systolic (mm Hg) 2017-11-13 22:15:00 T[facility] Diastolic (mm Hg) 2017-11-13 22:15:00 [facility] Respitory Rate 2017-11-13 22:15:00 [facility] Respitory Rate 2017-11-13 22:00:00 [facility] Systolic (mm Hg) 2017-11-13 22:00:00 [facility] Diastolic (mm Hg) 2017-11-13 22:00:00 [facility] Temperature Oral (F) 2017-11-13 21:00:00 97.7 F [facility] Temperature Oral (F) 2017-11-13 17:30:00 98.2 F [facility] BMI Calculated 2017-11-13 15:57:00 [facility] Height 2017-11-13 15:57:00 170.18 cm [facility] Weight 2017-11-13 15:57:00 [facility] Systolic (mm Hg) 2017-09-01 15:19:00 [facility] Diastolic (mm Hg) 2017-09-01 15:19:00 [facility] BMI Calculated 2017-09-01 15:19:00 [facility] Weight 2017-09-01 15:19:00 [facility] Heart Rate 2017-09-01 15:19:00 [facility] Temperature Oral (F) 2017-09-01 15:19:00 97.7 F [facility] Height 2017-09-01 15:19:00 170.18 cm [facility] Systolic (mm Hg) 2017-06-26 18:00:00 [facility] Diastolic (mm Hg) 2017-06-26 18:00:00 [facility] Respitory Rate 2017-06-26 18:00:00 [facility] Systolic (mm Hg) 2017-06-26 17:45:00 [facility] Diastolic (mm Hg) 2017-06-26 17:45:00 [facility] Respitory Rate 2017-06-26 17:45:00 [facility] Respitory Rate 2017-06-26 17:30:00 [facility] Systolic (mm Hg) 2017-06-26 17:30:00 [facility] Diastolic (mm Hg) 2017-06-26 17:30:00 [facility] BMI Calculated 2017-06-26 12:26:00 [facility] Weight 2017-06-26 12:26:00 [facility] Height 2017-06-26 12:26:00 170.18 cm [facility] Temperature Oral (F) 2017-06-26 11:45:00 98.3 F [facility] Systolic (mm Hg) 2017-05-15 19:15:00 [facility] Diastolic (mm Hg) 2017-05-15 19:15:00 [facility] Respitory Rate 2017-05-15 19:15:00 [facility] Respitory Rate 2017-05-15 19:00:00 [facility] Systolic (mm Hg) 2017-05-15 19:00:00 [facility] Diastolic (mm Hg) 2017-05-15 19:00:00 [facility] Respitory Rate 2017-05-15 18:45:00 [facility] Systolic (mm Hg) 2017-05-15 18:45:00 [facility] Diastolic (mm Hg) 2017-05-15 18:45:00 [facility] Respitory Rate 2017-05-09 23:08:00 [facility] Temperature Oral (F) 2017-05-09 23:08:00 98.2 F [facility] Weight 2017-05-09 23:08:00 [facility] BMI Calculated 2017-05-09 23:08:00 [facility] Heart Rate 2017-05-09 23:08:00 [facility] Systolic (mm Hg) 2017-05-09 23:08:00 [facility] Diastolic (mm Hg) 2017-05-09 23:08:00 [facility] Height 2017-05-09 23:08:00 170.18 cm [facility] Weight 2017-05-08 18:44:00 [facility] BMI Calculated 2017-05-08 18:44:00 [facility] Height 2017-05-08 18:44:00 170.18 cm [facility] Systolic (mm Hg) 2017-04-11 00:41:00 [facility] Diastolic (mm Hg) 2017-04-11 00:41:00 [facility] Heart Rate 2017-04-11 00:41:00 [facility] Respitory Rate 2017-04-11 00:41:00 [facility] Temperature Oral (F) 2017-04-11 00:41:00 98.0 F [facility] Temperature Oral (F) 2017-04-10 20:33:00 98.2 F [facility] Heart Rate 2017-04-10 20:33:00 [facility] Systolic (mm Hg) 2017-04-10 20:33:00 [facility] Diastolic (mm Hg) 2017-04-10 20:33:00 [facility] Systolic (mm Hg) 2017-04-10 19:33:00 [facility] Diastolic (mm Hg) 2017-04-10 19:33:00 [facility] Heart Rate 2017-04-10 19:33:00 [facility] Respitory Rate 2017-04-10 17:03:00 [facility] Temperature Oral (F) 2017-04-10 17:03:00 97.8 F [facility] Respitory Rate 2017-04-10 08:00:00 [facility] BMI Calculated 2017-04-10 01:28:00 [facility] Height 2017-04-10 01:28:00 170.18 cm [facility] Weight 2017-04-10 01:28:00 [facility] Weight 2017-04-09 22:17:00 [facility] Heart Rate 2017-03-18 16:54:00 [facility] Systolic (mm Hg) 2017-03-18 16:54:00 [facility] Diastolic (mm Hg) 2017-03-18 16:54:00 [facility] Heart Rate 2017-03-18 16:25:00 [facility] Respitory Rate 2017-03-18 16:25:00 [facility] Systolic (mm Hg) 2017-03-18 16:25:00 [facility] Diastolic (mm Hg) 2017-03-18 16:25:00 [facility] Temperature Oral (F) 2017-03-18 16:25:00 97.9 F [facility] Temperature Oral (F) 2017-03-18 12:41:00 98.1 F [facility] Heart Rate 2017-03-18 12:41:00 [facility] Respitory Rate 2017-03-18 12:41:00 [facility] Diastolic (mm Hg) 2017-03-18 12:41:00 [facility] Systolic (mm Hg) 2017-03-18 12:41:00 [facility] Temperature Oral (F) 2017-03-18 05:07:00 98.7 F [facility] Respitory Rate 2017-03-17 17:00:00 [facility] Weight 2017-03-11 03:29:00 [facility] BMI Calculated 2017-03-11 03:29:00 [facility] Height 2017-03-11 03:29:00 170.18 cm [facility] Weight 2017-03-10 21:27:00 [facility] Respitory Rate 2013-11-26 23:08:00 [facility] Diastolic (mm Hg) 2013-11-26 21:50:00 [facility] Systolic (mm Hg) 2013-11-26 21:50:00 [facility]ico [facility] Respitory Rate 2013-11-26 21:50:00 [facility] Respitory Rate 2013-11-26 21:02:00 [facility] Systolic (mm Hg) 2013-11-26 20:00:00 [facility] Diastolic (mm Hg) 2013-11-26 20:00:00 [facility] Systolic (mm Hg) 2013-11-26 18:00:00 [facility] Diastolic (mm Hg) 2013-11-26 18:00:00 [facility] Temperature Oral (F) 2013-11-26 18:00:00 98 F [facility] Temperature Oral (F) 2013-11-26 10:30:00 98.7 F [facility] Temperature Oral (F) 2013-11-26 08:00:00 98.5 F [facility] Weight 2013-11-22 21:37:00 [facility] Heart Rate 2013-11-22 20:55:00 [facility] Heart Rate 2013-11-22 20:24:00 [facility] Heart Rate 2013-11-22 20:04:00 [facility] Height 2013-11-22 18:42:00 170.18 cm [facility] Weight 2013-11-22 18:42:00 [facility] BMI Calculated 2013-11-22 18:42:00 [facility] Weight 2012-11-03 13:39:00 [facility] Height 2012-11-03 13:39:00 170.18 cm [facility] Height 2012-01-08 15:12:00 170.18 cm [facility] Weight 2012-01-08 15:12:00 [facility] Procedures Procedure Date / Time Performing Clinician Source Performed US DUPLEX VENOUS ARM 2022-12-02 18:57:[address] [facility] LEFT - BY VASCULAR LAB [facility] COMP. METABOLIC PANEL 2022-12-02 18:34:00 Roberto Pratt [facility] ([id number]) [facility] CBC WITH DIFF 2022-12-02 18:34:00 Roberto Pratt o f [facility] PROTHROMBIN TIME / INR 2022-12-02 18:34:00 Roberto Pratt rsity of [facility] ACTIVATED PARTIAL 2022-12-02 18:34:00 Roberto Pratt [facility] THRMPLAS RIC [facility] Colonoscopy 2018-09-24 06:00:[address] [facility] [place] [place] Arteriovenous fistula 2017-05-15 05:00:00 Shannon Rivers operation Insertion of tunneled 2016-09-29 00:00:00 Shannon Rivers central venous catheter using fluoroscopic guidance<sup>1</sup> Encounters Start End Encounter Admission Attending Care Care Encounter Source Date/Time Date/Time Type Type Clinicians Facility Department ID 2023-05-10 OD LUISITO JORGE [id number] Me moria 19:04:47 00 l Momo 2023-03-26 OD LUISITO JORGE [id number] Me moria 13:26:25 00 l [facility] 2022-12-11 Outpatient [facility] [id number] [place] 07:29:56 [id number] [facility] 2022-12-06 Outpatient [facility] [id number] [place] 09:33:25 [id number] [facility] 2022-12-04 Inpatient STEFANY COTA [facility] [id number] [facility] 13:30:55 2022-12-03 Outpatient [facility] ER [id number] [place] 14:02:55 [id number] [facility] 2022-12-05 2022-12-14 Inpatient [facility] [id number] Memoria 16:53:00 17:17:00 Momo 65 l [facility] 2022-12-05 2022-12-14 Inpatient [facility] [id number] Memoria 16:53:00 17:17:00 Momo 65 [facility] 2022-12-05 2022-12-14 Outpatient JUANITO Del Rio [id number] 10:53:00 12:17:00 Pranavkmg 65 Dindaniela 2022-12-05 2022-12-14 Inpatient U JUANITO [facility] [id number] 10:53:00 12:17:[address] [facility] 2022-12-11 2022-12-11 Outpatient YAZ, [facility] ER [id number] [place] 13:30:00 13:30:00 [facility] 2022-12-09 2022-12-09 Outpatient YAZ, [facility] ER [id number] [place] 14:30:00 14:30:00 [facility] 2022-12-06 2022-12-06 Outpatient DONAL, [facility] [id number] [place] 09:30:00 09:30:00 [facility] 2022-12-05 2022-12-05 Outpatient Salud [facility] [id number] 10:53:00 10:53:00 En-Ubaldou 65 2022-12-03 2022-12-03 Outpatient DONAL, [facility] ER [id number] [place] 11:30:00 11:30:00 [facility] 2022-12-02 2022-12-02 Emergency [facility] [id number] Univers 11:37:00 16:41:00 ROBERTO humphreys of [facility] 2022-12-02 2022-12-02 Emergency [facility] [id number] Univers 11:37:00 16:41:00 Roberto VALENTINO 350.1.13.10 i ty LOKESHBANNER 4.2.7.2.686 [facility] [id number] [place] [address] [address] 2022-04-19 2022-04-[address] [id number] Univers 09:00:00 09:00:00 [place] humphreys o f [facility] 2022-04-10 2022-04-10 Telephone [facility] [id number] Univers 00:00:00 00:00:00 [place] Bojorquez MULTISPEC 350.1.13.10 [place] 4.2.7.2.686 [facility] [id number] [facility] [place] [id number] [address] [facility] 2022-04-10 2022-04-10 Telephone [facility] [id number] Univers 00:00:00 00:00:00 [place] Bojorquez MULTISPEC 350.1.13.10 ity of IALTY 4.2.7.2.686 [facility] [id number] [facility] [address] [facility] 2022-04-08 2022-04-08 Committee Luciano [facility] [id number] Univers 00:00:00 00:00:00 Review Elidia alegre MULTISPEC 350.1.13.10 ity of IALTY 4.2.7.2.686 [facility] [id number] [facility] [address] [facility] 2022-03-27 2022-03-27 Auto Job Estimator Vtc-Lab [facility] [id number] Univers 13:00:00 13:15:00 Visit [place] Chang MULTISPEC 350.1.13 .10 ity of IALTY 4.2.7.2.686 [facility] [id number] [facility] [address] [facility] 2022-03-27 2022-03-27 Outpatient R CHARLENE [facility] [id number] Univers 13:00:00 13:00:00 [place] ity o f [facility] 2022-03-27 2022-03-27 Certified Nursing Assistant Certified Nursing Assistant, Transplant [facility] 1. 2.840.114 [id number] Univers 12:00:00 12:00:00 Visit [place] Chang MULTISPEC 350.1.13 .10 ity of IALTY 4.2.7.2.686 [facility] [id number] [address] [facility] 2022-03-27 2022-03-27 Outpatient R ANAI STONE [facility] [id number] Univers 11:00:00 11:58:21 ity of [facility] 2022-03-27 2022-03-27 Supervisor Electronics Inspection, Transplant Social [facility] [id number] [id number] Univers 11:00:00 11:58:21 Management [place] Chang MULTISPEC 350.1 .13.10 ity of IALTY 4.2.7.2.686 [facility] [id number] [facility] [address] DI[address] [facility] 2022-03-27 2022-03-27 Office Anai Stone [facility] 1.2.840.114 [id number] Univers 10:00:00 11:58:04 Visit [place] Chang MULTISPEC 350.1.13 .10 ity of IALTY 4.2.7.2.686 [facility] [id number] [facility] [address] DI[facility] 2022-03-27 2022-03-27 Nurse Renal, Transplant Class [facility] 1. 2.840.114 [id number] [facility] 08:30:00 09:15:00 Visit Kathy Changd Maryellen MULTISPEC 350.1.13 .10 ity of IALTY 4.2.7.2.686 [facility] [id number] [address] DIABETES [facility] 2019-08-19 2019-08-20 Emergency nullFlavo [facility] [id number] Memoria 18:32:29 19:53:00 r Momo 21 l [place] Joanna 2019-08-19 2019-08-20 Emergency nullFlavo [facility] [id number] Memoria 18:32:29 19:53:00 r Momo 21 l [place] Joanna 2019-08-19 2019-08-20 Outpatient CEDRIC Cannon [place] [id number] 12:32:29 13:53:00 Jeromy Roper 2019-08-19 2019-08-19 Emergency E [facility] [id number] [facility] 12:32:00 12:32:00 2019-08-11 2019-08-11 Emergency E ELIUD MAY [facility] 1000 [id number] [facility] 07:59:00 09:20:00 Medica [place] 2019-06-22 2019-07-22 OP nullFlavo Transplant [id number] Memoria 12:20:00 04:59:00 Transplant r Center 05 l [facility] Pre 2019-06-22 2019-07-22 OP nullFlavo Transplant [id number] Memoria 12:20:00 04:59:00 Transplant r [place] 05 l [facility] Pre 2019-06-22 2019-07-21 Outpatient [facility] [id number] 07:20:00 23:59:00 Clara Clarke 2019-06-22 2019-06-22 Outpatient [facility] [id number] [facility] 07:20:00 07:20:00 2019-05-26 2019-05-26 Ambulatory nullFlavo [facility] [id number] Mem[facility] 20:00:00 20:00:00 [facility] 2019-05-26 2019-05-26 Ambulatory nullFlavo [facility] [id number] Memoria 20:00:00 20:00:00 [facility] 2019-05-26 2019-05-26 Outpatient IE [facility] [id number] Memoria 15:00:00 15:00:00 gayle Barr 2019-05-26 2019-05-26 [facility] [place] [id number] 15:00:00 15:00:00 Romi Oliveira 2018-12-29 2019-01-28 Tots nullFlavo [facility] [id number] Memoria 16:57:00 04:59:00 Therapy r [facility] 03 gayle Momo Barr 2018-12-29 2019-01-28 Tots nullFlavo [facility] [id number] Memoria 16:57:00 04:59:00 Therapy r [facility] Eran araujo Momo Weston 2018-12-29 2019-01-27 [facility] [id number] 11:57:00 23:59:00 Romi Oliveira 2018-11-26 2018-12-26 Tots nullFlavo [facility] [id number] Memoria 16:01:00 04:59:00 Therapy r [facility] Eran araujo Momo Barr 2018-11-26 2018-12-26 Tots nullFlavo [facility] [id number] Memoria 16:01:00 04:59:00 Therapy r [facility] Eran araujo Momo Barr 2018-11-26 2018-12-25 Outpatient Erma [facility] M[facility] [id number] 10:01:00 23:59:00 Romi Oliveira 2018-09-24 2018-09-24 Bedded [facility]Flavo [facility] [id number] Memoria 11:23:00 14:45:00 Outpatient r Mom[place] 20 l [place] [facility] 2018-09-24 2018-09-24 Bedded nullFlavo [facility] [id number] Memoria 11:23:00 14:45:00 Outpatient r Mom[place] 20 l [place] [facility] 2018-09-24 2018-09-24 Outpatient KASIE RoperL [facility] [id number] 05:23:00 08:45:00 Shun Desir 20 2018-08-26 2018-08-27 [place] [id number] Memoria 17:30:00 05:59:59 r Internal 07 l Medicine [facility] 2018-08-26 2018-08-27 [place] [id number] Memoria 17:30:00 05:59:[address] [facility] 2018-08-25 2018-08-27 Phone nullFlavo [facility] [id number] Memoria 20:42:00 05:59:59 Message r Gastroenter 02 l [facility] [place] 2018-08-25 2018-08-27 Phone nullFlavo [facility] [id number] Memoria 20:42:00 05:59:59 Message r Gastroenter 02 l eddieogy Momo Shasta 2018-08-26 2018-08-26 Outpatient MG MG [id number] 11:30:00 23:59:59 07 2018-08-25 2018-08-26 Outpatient MG MG [id number] 14:42:00 23:59:59 02 2018-08-26 2018-08-26 Outpatient [facility] [id number] Memoria 11:30:00 11:30:00 07 gayle Barr 2018-08-25 2018-08-26 [place] [id number] Memoria 20:00:00 05:59:59 [facility] 2018-08-25 2018-08-26 [place] [id number] Memoria 20:00:00 05:59:59 r Internal 06 l [facility] 2018-08-25 2018-08-25 [id number] 14:00:00 23:59:59 Romi Oliveira 2018-08-25 2018-08-25 Outpatient MHIE MHIE [id number] Memoria 14:00:00 14:00:00 06 gayle Barr 2018-07-23 2018-08-22 Tots nullFlavo TIRR [id number] Memoria 15:08:00 05:59:00 Therapy r [facility] 02 gayle Barr 2018-07-23 2018-08-22 Tots nullFlavo TIRR [id number] Memoria 15:08:00 05:59:00 Therapy r [facility] 02 gayle Barr [place] 2018-07-23 2018-08-21 Outpatient Bollineni, MHTIRR MHTIRR [id number] 10:08:00 23:59:00 [place] [address] 2018-07-28 2018-07-28 Emergency nullFlavo [facility] [id number] Memoria 17:36:00 19:50:00 r Momo [address] [facility] 2018-07-28 2018-07-28 Emergency nullFlavo [facility] [id number] Memoria 17:36:00 19:50:00 r Momo [address] [facility] 2018-07-28 2018-07-28 Outpatient Carolee, MHSL MHSL [id number] 12:36:00 14:50:00 Valeri Meg Kiah 2018-06-18 2018-07-18 Tots nullFlavo TIRR [id number] Memoria 17:56:00 04:59:00 Therapy r [facility] 01 gayle Grossmanann 2018-06-18 2018-07-18 Tots nullFlavo TIRR [id number] Memoria 17:56:00 04:59:00 Therapy r [facility] 01 gayle Grossmanann 2018-06-18 2018-07-17 Outpatient De MHTIRR MHTIRR [id number] 12:56:00 23:59:00 Vince Jp Sada Uriarte 2018-05-19 2018-06-18 Tots nullFlavo TIRR [id number] Memoria 13:49:00 04:59:00 Therapy r [facility] 00 gayle Grossmanann 2018-05-19 2018-06-18 Tots nullFlavo TIRR [id number] Memoria 13:49:00 04:59:00 Therapy r [facility] 00 gayle Barr Momo 2018-05-19 2018-06-17 Outpatient De MHTIRR MHTIRR [id number] 08:49:00 23:59:00 Kavin Clarke 2018-04-14 2018-04-15 Outpatient nullFlavo [facility] 5 [id number] Memoria 15:00:00 04:59:59 r Medicine 05 l Sandhya walsh 2018-04-14 2018-04-15 Outpatient nullFlavo [facility] 5 [id number] Memoria 15:00:00 04:59:59 r Medicine 05 l Sandhya Jorge nico 2018-04-14 2018-04-14 Outpatient Graham, MG [facility] [id number] 10:00:00 23:59:59 Shira 05 2018-04-14 2018-04-14 Outpatient MHIE MHIE [id number] Memoria 10:00:00 10:00:00 05 gayle Momo 2018-02-24 2018-03-26 Tots nullFlavo TIRR [id number] Memoria 13:00:00 04:59:00 Therapy r [facility] 01 gayle Momo Grossmanann 2018-02-24 2018-03-26 Tots nullFlavo TIRR [id number] Memoria 13:00:00 04:59:00 Therapy r [facility] 01 gayle Momo Weston 2018-02-24 2018-03-25 Outpatient Haritha MHTIRR MHTIRR [id number] 08:00:00 23:59:00 Stephanie 01 2018-03-03 2018-03-04 Outpatient E [place] [place] [id number] [place] 15:47:00 12:01:00 [facility] 2018-03-02 2018-03-02 Day nullFlavo [facility] [id number] Memoria 11:21:00 14:40:00 Surgery r Momo 16 l [facility] 2018-03-02 2018-03-02 Day nullFlavo [facility] [id number] Memoria 11:21:00 14:40:00 Surgery r Momo 16 l [facility] 2018-03-02 2018-03-02 Outpatient Juan Jose [facility] [id number] 06:21:00 09:40:00 Janak Kovacs 2018-02-25 2018-02-27 Phone nullFlavo [facility] [id number] Memoria 14:08:00 04:59:59 Message r Internal 01 l [facility] [place] 2018-02-25 2018-02-27 Phone nullFlavo [facility] [id number] Memoria 14:08:00 04:59:59 Message r Internal 01 l [facility] [place] 2018-02-25 2018-02-26 Outpatient MHMG MG [id number] 09:08:00 23:59:59 01 2018-02-25 2018-02-26 [place] [id number] Memoria 19:30:00 04:59:59 r Internal 04 l [facility] 2018-02-25 2018-02-26 [place] [id number] Memoria 19:30:00 04:59:59 r Internal 04 l [facility] 2018-01-27 2018-02-26 OP nullFlavo [facility] [id number] Memoria 13:44:00 04:59:00 Transplant r Momo 00 l [facility] 2018-01-27 2018-02-26 OP nullFlavo [facility] [id number] Memoria 13:44:00 04:59:00 Transplant r Weston 00 l Clinic - Trans[facility] 2018-02-25 2018-02-25 Outpatient Stevenson [facility] [id number] 14:30:00 23:59:59 Shira 04 2018-01-27 2018-02-25 Outpatient De [facility] [id number] 08:44:00 23:59:00 Kavin Clarke 2018-02-25 2018-02-25 Outpatient LUISITO [facility] [id number] Memoria 14:30:00 14:30:00 04 gayle Barr 2018-02-24 2018-02-24 Emergency nullFlavo [facility] [id number] Memoria 21:16:00 23:51:00 r Momo 17 l [place] 2018-02-24 2018-02-24 Emergency nullFlavo [facility] [id number] Memoria 21:16:00 23:51:00 r Momo 17 l [place] 2018-02-24 2018-02-24 Outpatient Aniceto MHSL [facility] [id number] 16:16:00 18:51:00 Armond Miller 2018-01-27 2018-01-27 Emergency nullFlavo [facility] [id number] Memoria 19:45:00 22:45:00 r Weston 14 l [facility] 2018-01-27 2018-01-27 Emergency nullFlavo [facility] [id number] Memoria 19:45:00 22:45:00 r Momo 14 l [facility] 2018-01-27 2018-01-27 [facility] [id number] 14:45:00 17:45:00 , Malorie 14 2018-01-27 2018-01-27 [facility] [id number] 14:45:00 17:45:00 , Malorie 14 2018-01-01 2018-01-01 Day nullFlavo [facility] [id number] Memoria 11:13:00 18:10:00 Surgery r Momo 11 l [facility] 2018-01-01 2018-01-01 Day nullFlavo [facility] [id number] Memoria 11:13:00 18:10:00 Surgery r Momo 11 l [facility] 2018-01-01 2018-01-01 Outpatient Juan Jose, [facility] [id number] 06:13:00 13:10:00 Janak Jaycob Kovacs 2017-11-13 2017-11-13 Observatio nullFlavo [facility] [id number] Memoria 19:18:00 22:45:00 n eugenia Barr 10 l [facility] 2017-11-13 2017-11-13 Observatio nullFlavo [facility] [id number] Memoria 19:18:00 22:45:00 n eugenia Barr 10 l [facility] 2017-11-13 2017-11-13 Outpatient Juan Jose, [facility] [id number] 13:18:00 16:45:00 Janak Mabel Fermín 2017-09-01 2017-09-02 [place] [id number] Memoria 15:15:00 05:59:59 [facility] 2017-09-01 2017-09-02 [place] [id number] Memoria 15:15:00 05:59:59 r Internal 03 [facility] [place] 2017-09-01 2017-09-01 Outpatient Grahma [facility] [id number] 09:15:00 23:59:59 Shira 03 2017-09-01 2017-09-01 Outpatient CARMINAIE CARMINAIE [id number] Memoria 09:15:00 09:15:00 03 gayle Barr 2017-06-26 2017-06-26 Day nullFlavo [facility] [id number] Memoria 10:30:00 18:20:00 Surgery r Weston 08 l [facility] 2017-06-26 2017-06-26 Day nullFlavo [facility] [id number] Memoria 10:30:00 18:20:00 Surgery r Weston 08 l [facility] 2017-06-26 2017-06-26 Outpatient Juan Jose [facility] [id number] 05:30:00 13:20:00 Janak Tiffanie Kovacs 2017-05-15 2017-05-15 Day nullFlavo [facility] [id number] Memoria 11:00:00 19:20:00 Surgery r Weston 06 l [facility] 2017-05-15 2017-05-15 Day nullFlavo [facility] [id number] Memoria 11:00:00 19:20:00 Surgery r Momo 06 l [facility] 2017-05-15 2017-05-15 Outpatient Juan Jose [facility] [id number] 06:00:00 14:20:00 Janak Andrez Kovacs 2017-05-09 2017-05-10 Emergency nullFlavo [facility] [id number] Memoria 23:04:00 00:00:00 r Momo 07 l [place] 2017-05-09 2017-05-10 Emergency nullFlavo [facility] [id number] Memoria 23:04:00 00:00:00 r Momo 07 l [place] 2017-05-09 2017-05-09 Outpatient [facility]in [id number] 18:04:00 19:00:00 Oli 2017-05-07 2017-05-07 Outpatient CARMINAIE CARMINAIE [id number] Memoria 10:30:00 10:30:00 02 gayle Barr 2017-05-07 2017-05-07 Outpatient LUISITO JORGE [id number] Memoria 10:30:00 10:30:00 02 gayle Barr 2017-04-25 2017-04-25 Outpatient MHIE MHIE [id number] Memoria 14:45:00 14:45:00 01 l Momo 2017-04-25 2017-04-25 Outpatient MHIE MHIE [id number] Memoria 14:45:00 14:45:00 01 l Momo 2017-04-09 2017-04-11 Bedded nullFlavo [facility] [id number] Memoria 22:15:00 01:18:00 Outpatient r Weston 05 l [place] 2017-04-09 2017-04-11 Bedded nullFlavo [facility] [id number] Memoria 22:15:00 01:18:00 Outpatient r Momo 05 l [place] 2017-04-09 2017-04-10 [facility] [id number] 17:15:00 20:18:00 Pancho 2017-03-10 2017-03-18 Inpatient nullFlavo [facility] [id number] Memoria 21:21:00 18:26:00 r Weston 04 l [place] 2017-03-10 2017-03-18 Inpatient nullFlavo [facility] [id number] Memoria 21:21:00 18:26:00 r Weston 04 l [place] 2017-03-10 2017-03-18 Outpatient Haim, MHSL SL [id number] 16:21:00 13:26:00 Mauricio 2017-03-07 2017-03-07 Outpatient MHIE CARMINAIE [id number] Memoria 10:30:00 10:30:00 00 gayle Barr 2017-03-07 2017-03-07 Outpatient MHIE MHIE [id number] Memoria 10:30:00 10:30:00 00 gayle Barr 2013-11-22 2013-11-27 Inpatient nullFlavo [facility] [id number] Memoria 18:37:00 02:10:00 r Momo _[id number] [address] 2013-11-22 2013-11-27 Inpatient nullFlavo [facility] [id number] Memoria 18:37:00 02:10:00 r Momo _[id number] [address] 2013-11-22 2013-11-26 Outpatient Kvng [id number] 12:37:00 20:10:00 Judy [id number] Arreola [id number] [id number] 2013-11-22 Inpatient nullFlavo [place] [id number] Memoria 13:45:00 13:45:00 [facility] 02 [facility] 2013-11-22 2013-11-22 Inpatient nullFlavo [place] [id number] Memoria 13:45:00 13:45:00 r [facility] 02 [facility] 2012-11-03 2012-11-03 Emergency nullFlavo [facility] 37 [id number] Memoria 07:28:00 09:57:00 [facility] 2012-11-03 2012-11-03 Emergency nullFlavo [facility] 37 [id number] Memoria 07:28:00 09:57:00 r [facility] 01 [facility] 2012-01-08 2012-01-08 Emergency nullFlavo [facility] 37 [id number] Memoria 09:38:00 17:44:00 r [facility] 2012-01-08 2012-01-08 Emergency nullFlavo [facility] 37 [id number] Memoria 09:38:00 17:44:00 [facility] Results Test Description Test Time Test Comments Results Result Comments Source CHEMISTRY 2022-12-14 09:01:00 Test Item Value Reference Range Interpretation Comme nts Glucose Lvl (test code = Glucose Lvl) 86 70-99 [facility]HIHLEXE4834-18-00 09:01:00 Test Item Value Reference Range Interpretation Comments BUN (test code = BUN) 24 7-22 [facility] HospitalXcsauxvZMICHHSGL8062-29-76 09:01:00 Test Item Value Reference Range Interpretation Comments Creatinine Lvl (test code = Creatinine 6.44 0.50-1.40 Lvl) [facility] HospitalAjthuiaLHWOBWGOL4296-07-85 09:01:00 Test Item Value Reference Range Interpretation Comments Sodium Lvl (test code = Sodium Lvl) 137 135-145 [facility] HospitalIewzqvxBDMVCJIOT1751-06-95 09:01:00 Test Item Value Reference Range Interpretation Comments Potassium Lvl (test code = Potassium 3.8 3.5-5.1 Lvl) [facility] HospitalRdznrdwHAIOCRMNR2796-94-84 09:01:00 Test Item Value Reference Range Interpretation Comments Chloride Lvl (test code = Chloride Lvl) 104 95-109 [place] [address]-03-18 09:01:00 Test Item Value Reference Range Interpretation Comments CO2 (test code = CO2) 27 24-32 [place] [address]-03-18 09:01:00 Test Item Value Reference Range Interpretation Comments AGAP (test code = AGAP) 9.8 10.0-20.0 [place] [address]-03-18 09:01:00 Test Item Value Reference Range Interpretation Comments Calcium Lvl (test code = Calcium Lvl) 8.3 8.5-10.5 [place] [address]-03-18 09:01:00 Test Item Value Reference Range Interpretation Comments B/C Ratio (test code = B/C Ratio) 4 1 6-25 [place] [address]-03-18 09:01:00 Test Item Value Reference Range Interpretation Comments Total Protein (test code = Total 5.8 6.4-8.4 Protein) [place] [address]-03-18 09:01:00 Test Item Value Reference Range Interpretation Comments Albumin Lvl (test code = Albumin Lvl) 2.9 3.5-5.0 [place] [address]-03-18 09:01:00 Test Item Value Reference Range Interpretation Comments Globulin (test code = Globulin) 2.9 2.7-4.2 [place] [address]-03-18 09:01:00 Test Item Value Reference Range Interpretation Comments A/G Ratio (test code = A/G Ratio) 1.0 1 0.7-1.6 [place] [address]-03-18 09:01:00 Test Item Value Reference Range Interpretation Comments ALT (test code = ALT) no gt See_Comment [Auto mated message] The system which ge nerated this result transmit curz reference range : <=65. The reference range was not used to interpr et this result as gee l/abnormal. [place] 203443-03-18 09:01:00 Test Item Value Reference Range Interpretation Comments AST (test code = AST) 17 See_Comment [Auto mated message] The system which ge nerated this result transmit cruz reference range : <=37. The reference range was not used to interpr et this result as gee l/abnormal. [facility] HospitalSkjtkriBXMBLKROU7446-23-97 09:01:00 Test Item Value Reference Range Interpretation Comments Alk Phos (test code = Alk Phos) 79 39-136 [facility] HospitalMllczewZOFYZKXOV6569-98-96 09:01:00 Test Item Value Reference Range Interpretation Comments Bili Total (test code = Bili Total) 0.6 0.2-1.3 [facility] HospitalQlvmnbyGPBPXTEYH6710-86-83 09:01:00 Test Item Value Reference Range Interpretation Comments eGFR (test code = eGFR) 9 [facility]rxGZXTXHVQMS4980-48-94 09:01:00 Test Item Value Reference Range Interpretation Comments WBC (test code = WBC) 6.8 3.7-10.4 [facility] HospitalPuukpvpZUGKRIBEKP9829-24-65 09:01:00 Test Item Value Reference Range Interpretation Comments RBC (test code = RBC) 2.72 4.70-6.10 [facility] HospitalHtjoazsEURZBUHKXR9428-90-14 09:01:00 Test Item Value Reference Range Interpretation Comments Hgb (test code = Hgb) 8.5 14.0-18.0 [place] 447393-03-18 09:01:00 Test Item Value Reference Range Interpretation Comments Hct (test code = Hct) 25.7 42.0-54.0 [facility] HospitalSvhyzrfLWZHIBBETG8897-75-95 09:01:00 Test Item Value Reference Range Interpretation Comments MCV (test code = MCV) 94.4 80.0-94.0 [facility] HospitalJilpyyeWZUDEOABUY1729-15-77 09:01:00 Test Item Value Reference Range Interpretation Comments MCH (test code = MCH) 31.1 pg 27.0-31.0 [facility] HospitalBubzrhuDABDNARJPD9007-83-19 09:01:00 Test Item Value Reference Range Interpretation Comments MCHC (test code = MCHC) 32.9 32.0-36.0 [facility] HospitalTixghxbIZOBTBXIHR9528-30-22 09:01:00 Test Item Value Reference Range Interpretation Comments RDW (test code = RDW) 17.4 11.5-14.5 [facility] HospitalMblqgfoRKILEBWKLQ8731-28-34 09:01:00 Test Item Value Reference Range Interpretation Comments Platelet (test code = Platelet) 180 133-450 [facility] HospitalBggwjmwZLJPXPTLNI5606-82-22 09:01:00 Test Item Value Reference Range Interpretation Comments MPV (test code = MPV) 7.3 7.4-10.4 [place] [address]-03-18 09:01:00 Test Item Value Reference Range Interpretation Comments Segs (test code = Segs) 63.6 45.0-75.0 [place] 447393-03-18 09:01:00 Test Item Value Reference Range Interpretation Comments Lymphocytes (test code = Lymphocytes) 18.7 20.0-40.0 [place] [address]-03-18 09:01:00 Test Item Value Reference Range Interpretation Comments Monocytes (test code = Monocytes) 10.6 2.0-12.0 [place] [address]-03-18 09:01:00 Test Item Value Reference Range Interpretation Comments Eosinophils (test code = 6.1 See_Comment [A utomated message] The Eosinophils) system which ge nerated this result tra nsmitted reference range : <=4.0. The reference r jillian was not used to int erpret this result as normal/abnormal . [place] 447393-03-18 09:01:00 Test Item Value Reference Range Interpretation Comments Basophils (test code = 1.0 See_Comment [Aut omated message] The Basophils) system which ge nerated this result tra nsmitted reference range : <=1.0. The reference r jillian was not used to int erpret this result as normal/abnormal . [facility] HospitalNnmhvbzVLJQWUZAII5389-85-76 09:01:00 Test Item Value Reference Range Interpretation Comments Neutrophils # (test code = Neutrophils 4.3 1.5-8.1 #) [place] 447393-03-18 09:01:00 Test Item Value Reference Range Interpretation Comments Lymphocytes # (test code = Lymphocytes 1.3 1.0-5.5 #) [place] [address]-03-18 09:01:00 Test Item Value Reference Range Interpretation Comments Monocytes # (test code 0.7 See_Comment [Aut omated message] The = Monocytes #) system which generated this result tra nsmitted reference range : <=0.8. The reference r jillian was not used to int erpret this result as normal/abnormal . [place] 447393-03-18 09:01:00 Test Item Value Reference Range Interpretation Comments Eosinophils # (test code 0.4 See_Comment [A utomated message] The = Eosinophils #) system whic h generated this result tra nsmitted reference range : <=0.5. The reference r jillian was not used to int erpret this result as normal/abnormal . [facility]TnhatiwRWGHIAWZAB5471-59-19 09:01:00 Test Item Value Reference Range Interpretation Comments Basophils # (test code 0.1 See_Comment [Aut omated message] The = Basophils #) system which generated this result tra nsmitted reference range : <=0.2. The reference r jillian was not used to int erpret this result as normal/abnormal . [facility] PvemosiAQKPQGKCR8668-20-87 09:01:00 Test Item Value Reference Range Interpretation Comments Glucose Lvl (test code = Glucose Lvl) 86 70-99 [facility] CenterEfiamudFOAGQBGUE2397-16-67 09:01:00 Test Item Value Reference Range Interpretation Comments BUN (test code = BUN) 24 7-22 [facility] CenterEkgciktYCKKZNFNJ3233-13-30 09:01:00 Test Item Value Reference Range Interpretation Comments Creatinine Lvl (test code = Creatinine 6.44 0.50-1.40 Lvl) [facility] CenterOsvjtyuSDRIYADRE4256-27-49 09:01:00 Test Item Value Reference Range Interpretation Comments Sodium Lvl (test code = Sodium Lvl) 137 135-145 [facility] CenterDbwudqdPNUDVLNJK6574-63-79 09:01:00 Test Item Value Reference Range Interpretation Comments Potassium Lvl (test code = Potassium 3.8 3.5-5.1 Lvl) [facility] CenterGgzeikmIKUJRXSXK2936-30-07 09:01:00 Test Item Value Reference Range Interpretation Comments Chloride Lvl (test code = Chloride Lvl) 104 95-109 [facility] CenterGhkjvlqZEGHOCQMA6421-23-78 09:01:00 Test Item Value Reference Range Interpretation Comments CO2 (test code = CO2) 27 24-32 [facility] CenterHczstbxIOIMIVEXO4055-18-81 09:01:00 Test Item Value Reference Range Interpretation Comments AGAP (test code = AGAP) 9.8 10.0-20.0 [facility] CenterRdnvvkrFQVHEGDSE7668-47-76 09:01:00 Test Item Value Reference Range Interpretation Comments Calcium Lvl (test code = Calcium Lvl) 8.3 8.5-10.5 [place] 203443-03-18 09:01:00 Test Item Value Reference Range Interpretation Comments B/C Ratio (test code = B/C Ratio) 4 1 6-25 [place] 203443-03-18 09:01:00 Test Item Value Reference Range Interpretation Comments Total Protein (test code = Total 5.8 6.4-8.4 Protein) [facility] HospitalPfglegePEKXMINWT5001-43-20 09:01:00 Test Item Value Reference Range Interpretation Comments Albumin Lvl (test code = Albumin Lvl) 2.9 3.5-5.0 [place] 203443-03-18 09:01:00 Test Item Value Reference Range Interpretation Comments Globulin (test code = Globulin) 2.9 2.7-4.2 [facility] HospitalMjyegryYWDNGAIZK3603-73-33 09:01:00 Test Item Value Reference Range Interpretation Comments A/G Ratio (test code = A/G Ratio) 1.0 1 0.7-1.6 [place] 203443-03-18 09:01:00 Test Item Value Reference Range Interpretation Comments ALT (test code = ALT) no gt See_Comment [Auto mated message] The system which ge nerated this result transmit cruz reference range : <=65. The reference range was not used to interpr et this result as gee l/abnormal. [facility] HospitalXhdzlefMDTXJUGNB4769-85-19 09:01:00 Test Item Value Reference Range Interpretation Comments AST (test code = AST) 17 See_Comment [Auto mated message] The system which ge nerated this result transmit cruz reference range : <=37. The reference range was not used to interpr et this result as gee l/abnormal. [facility] HospitalKhsoxxmNXVORRETB8976-91-93 09:01:00 Test Item Value Reference Range Interpretation Comments Alk Phos (test code = Alk Phos) 79 39-136 [facility] HospitalWndpuycYLTYFBKXR1984-49-53 09:01:00 Test Item Value Reference Range Interpretation Comments Bili Total (test code = Bili Total) 0.6 0.2-1.3 [place] 203443-03-18 09:01:00 Test Item Value Reference Range Interpretation Comments eGFR (test code = eGFR) 9 [facility] HospitalIyzepbiSCDRVHIHLS9650-46-01 09:01:00 Test Item Value Reference Range Interpretation Comments WBC (test code = WBC) 6.8 3.7-10.4 [facility] HospitalSjpthwlKXAVFTKCGQ4616-74-66 09:01:00 Test Item Value Reference Range Interpretation Comments RBC (test code = RBC) 2.72 4.70-6.10 [facility] HospitalRxucscwRBQLISZINV1403-22-64 09:01:00 Test Item Value Reference Range Interpretation Comments Hgb (test code = Hgb) 8.5 14.0-18.0 [place] 447393-03-18 09:01:00 Test Item Value Reference Range Interpretation Comments Hct (test code = Hct) 25.7 42.0-54.0 [place] 447393-03-18 09:01:00 Test Item Value Reference Range Interpretation Comments MCV (test code = MCV) 94.4 80.0-94.0 [place] 447393-03-18 09:01:00 Test Item Value Reference Range Interpretation Comments MCH (test code = MCH) 31.1 pg 27.0-31.0 [facility] HospitalPyuevszUPSNBJIFNZ9654-61-97 09:01:00 Test Item Value Reference Range Interpretation Comments MCHC (test code = MCHC) 32.9 32.0-36.0 [facility] HospitalHbshyawWZYFSSEOHQ8664-26-27 09:01:00 Test Item Value Reference Range Interpretation Comments RDW (test code = RDW) 17.4 11.5-14.5 [facility] HospitalUppvrgoUDMDBFQXBP0570-74-73 09:01:00 Test Item Value Reference Range Interpretation Comments Platelet (test code = Platelet) 180 133-450 [facility] HospitalRtuxincINHKCUKVV5805-09-56 09:01:00 Test Item Value Reference Range Interpretation Comments Glucose Lvl (test code = Glucose Lvl) 86 70-99 [place] 203443-03-18 09:01:00 Test Item Value Reference Range Interpretation Comments BUN (test code = BUN) 24 7-22 [facility] HospitalIfihchiEXQIGDIUY8437-03-54 09:01:00 Test Item Value Reference Range Interpretation Comments Creatinine Lvl (test code = Creatinine 6.44 0.50-1.40 Lvl) [facility] HospitalWmaekhhGHDYXOSNN5089-39-37 09:01:00 Test Item Value Reference Range Interpretation Comments Sodium Lvl (test code = Sodium Lvl) 137 135-145 [place] 203443-03-18 09:01:00 Test Item Value Reference Range Interpretation Comments Potassium Lvl (test code = Potassium 3.8 3.5-5.1 Lvl) [facility] HospitalPsvaygkISZNWTAGG3127-92-28 09:01:00 Test Item Value Reference Range Interpretation Comments Chloride Lvl (test code = Chloride Lvl) 104 95-109 [facility]YhgeoigKQUHRCVBZ2261-97-50 09:01:00 Test Item Value Reference Range Interpretation Comments CO2 (test code = CO2) 27 24-32 [facility] HospitalHfeqhycGRUGGJJKM3857-70-11 09:01:00 Test Item Value Reference Range Interpretation Comments AGAP (test code = AGAP) 9.8 10.0-20.0 [facility] HospitalWdaazvcNBHFNFEHR2695-12-32 09:01:00 Test Item Value Reference Range Interpretation Comments Calcium Lvl (test code = Calcium Lvl) 8.3 8.5-10.5 [facility] HospitalHugquhsFIPIKUTUA9372-22-19 09:01:00 Test Item Value Reference Range Interpretation Comments B/C Ratio (test code = B/C Ratio) 4 1 6-25 [facility]CgkqshaLZNQRMNBEW9266-64-82 09:01:00 Test Item Value Reference Range Interpretation Comments MPV (test code = MPV) 7.3 7.4-10.4 [facility] HospitalApjdbssKNIOEPRXR6138-79-46 09:01:00 Test Item Value Reference Range Interpretation Comments Total Protein (test code = Total 5.8 6.4-8.4 Protein) [facility] HospitalMidwyxqRCUISDORH4906-16-85 09:01:00 Test Item Value Reference Range Interpretation Comments Albumin Lvl (test code = Albumin Lvl) 2.9 3.5-5.0 [facility] HospitalVlvlippRZUSDZLCU5811-10-06 09:01:00 Test Item Value Reference Range Interpretation Comments Globulin (test code = Globulin) 2.9 2.7-4.2 [facility] HospitalZvqsiswZUHDHANBI7420-09-73 09:01:00 Test Item Value Reference Range Interpretation Comments A/G Ratio (test code = A/G Ratio) 1.0 1 0.7-1.6 [facility] HospitalIcfoxtmCRWWPHZKA3408-78-97 09:01:00 Test Item Value Reference Range Interpretation Comments ALT (test code = ALT) no gt See_Comment [Auto mated message] The system which ge nerated this result transmit cruz reference range : <=65. The reference range was not used to interpr et this result as gee l/abnormal. [facility] CenterYssnpizAHGAXOVHY3436-55-99 09:01:00 Test Item Value Reference Range Interpretation Comments AST (test code = AST) 17 See_Comment [Auto mated message] The system which ge nerated this result transmit cruz reference range : <=37. The reference range was not used to interpr et this result as gee l/abnormal. [facility] DistrictKkoyyoaYMMJZPPQT3148-21-63 09:01:00 Test Item Value Reference Range Interpretation Comments Alk Phos (test code = Alk Phos) 79 39-136 [facility] DistrictCpegzidWDYNKCQZD7407-35-67 09:01:00 Test Item Value Reference Range Interpretation Comments Bili Total (test code = Bili Total) 0.6 0.2-1.3 [facility] DistrictKwafgkxWCEPYIAWM2586-98-94 09:01:00 Test Item Value Reference Range Interpretation Comments eGFR (test code = eGFR) 9 [facility] DistrictRwsitnzVGZFJNKHUN1063-84-92 09:01:00 Test Item Value Reference Range Interpretation Comments WBC (test code = WBC) 6.8 3.7-10.4 [facility] DistrictNsidnhxABQTRSZXVN1337-79-77 09:01:00 Test Item Value Reference Range Interpretation Comments Segs (test code = Segs) 63.6 45.0-75.0 [facility] DistrictPzupzaoQINVEKWYAN4348-03-93 09:01:00 Test Item Value Reference Range Interpretation Comments RBC (test code = RBC) 2.72 4.70-6.10 [facility] DistrictJlthvizIPJSOUQDAC5210-52-41 09:01:00 Test Item Value Reference Range Interpretation Comments Hgb (test code = Hgb) 8.5 14.0-18.0 [facility] DistrictItvtgcjOAWYDFFNAU6475-80-34 09:01:00 Test Item Value Reference Range Interpretation Comments Hct (test code = Hct) 25.7 42.0-54.0 [facility] DistrictWljmojiVJJJBTVWYE0798-09-85 09:01:00 Test Item Value Reference Range Interpretation Comments MCV (test code = MCV) 94.4 80.0-94.0 [facility] CenterAezrcspWWDGVCXCZV5459-80-60 09:01:00 Test Item Value Reference Range Interpretation Comments MCH (test code = MCH) 31.1 pg 27.0-31.0 [place] 447393-03-18 09:01:00 Test Item Value Reference Range Interpretation Comments MCHC (test code = MCHC) 32.9 32.0-36.0 [place] 447393-03-18 09:01:00 Test Item Value Reference Range Interpretation Comments RDW (test code = RDW) 17.4 11.5-14.5 [place] 447393-03-18 09:01:00 Test Item Value Reference Range Interpretation Comments Platelet (test code = Platelet) 180 133-450 [place] 447393-03-18 09:01:00 Test Item Value Reference Range Interpretation Comments MPV (test code = MPV) 7.3 7.4-10.4 [place] [address]-03-18 09:01:00 Test Item Value Reference Range Interpretation Comments Segs (test code = Segs) 63.6 45.0-75.0 [place] 447393-03-18 09:01:00 Test Item Value Reference Range Interpretation Comments Lymphocytes (test code = Lymphocytes) 18.7 20.0-40.0 [place] 447393-03-18 09:01:00 Test Item Value Reference Range Interpretation Comments Lymphocytes (test code = Lymphocytes) 18.7 20.0-40.0 [place] [address]-03-18 09:01:00 Test Item Value Reference Range Interpretation Comments Monocytes (test code = Monocytes) 10.6 2.0-12.0 [facility] HospitalXetfvizONBSQKMFPN7675-74-46 09:01:00 Test Item Value Reference Range Interpretation Comments Eosinophils (test code = 6.1 See_Comment [A utomated message] The Eosinophils) system which ge nerated this result tra nsmitted reference range : <=4.0. The reference r jillian was not used to int erpret this result as normal/abnormal . [place] 447393-03-18 09:01:00 Test Item Value Reference Range Interpretation Comments Basophils (test code = 1.0 See_Comment [Aut omated message] The Basophils) system which ge nerated this result tra nsmitted reference range : <=1.0. The reference r jillian was not used to int erpret this result as normal/abnormal . [place] 447393-03-18 09:01:00 Test Item Value Reference Range Interpretation Comments Neutrophils # (test code = Neutrophils 4.3 1.5-8.1 #) [place] [address]-03-18 09:01:00 Test Item Value Reference Range Interpretation Comments Lymphocytes # (test code = Lymphocytes 1.3 1.0-5.5 #) [place] [address]-03-18 09:01:00 Test Item Value Reference Range Interpretation Comments Monocytes # (test code 0.7 See_Comment [Aut omated message] The = Monocytes #) system which generated this result tra nsmitted reference range : <=0.8. The reference r jillian was not used to int erpret this result as normal/abnormal . [place] [address]-03-18 09:01:00 Test Item Value Reference Range Interpretation Comments Eosinophils # (test code 0.4 See_Comment [A utomated message] The = Eosinophils #) system whic h generated this result tra nsmitted reference range : <=0.5. The reference r jillian was not used to int erpret this result as normal/abnormal . [place] [address]-03-18 09:01:00 Test Item Value Reference Range Interpretation Comments Basophils # (test code 0.1 See_Comment [Aut omated message] The = Basophils #) system which generated this result tra nsmitted reference range : <=0.2. The reference r jillian was not used to int erpret this result as normal/abnormal . [place] [address]-03-18 09:01:00 Test Item Value Reference Range Interpretation Comments Monocytes (test code = Monocytes) 10.6 2.0-12.0 [place] [address]-03-18 09:01:00 Test Item Value Reference Range Interpretation Comments Eosinophils (test code = 6.1 See_Comment [A utomated message] The Eosinophils) system which ge nerated this result tra nsmitted reference range : <=4.0. The reference r jillian was not used to int erpret this result as normal/abnormal . [place] [address]-03-18 09:01:00 Test Item Value Reference Range Interpretation Comments Basophils (test code = 1.0 See_Comment [Aut omated message] The Basophils) system which ge nerated this result tra nsmitted reference range : <=1.0. The reference r jillian was not used to int erpret this result as normal/abnormal . [address]03-18 09:01:00 Test Item Value Reference Range Interpretation Comments Neutrophils # (test code = Neutrophils 4.3 1.5-8.1 #) [address]03-18 09:01:00 Test Item Value Reference Range Interpretation Comments Lymphocytes # (test code = Lymphocytes 1.3 1.0-5.5 #) [address]03-18 09:01:00 Test Item Value Reference Range Interpretation Comments Monocytes # (test code 0.7 See_Comment [Aut omated message] The = Monocytes #) system which generated this result tra nsmitted reference range : <=0.8. The reference r jillian was not used to int erpret this result as normal/abnormal . [address]03-18 09:01:00 Test Item Value Reference Range Interpretation Comments Eosinophils # (test code 0.4 See_Comment [A utomated message] The = Eosinophils #) system whic h generated this result tra nsmitted reference range : <=0.5. The reference r jillian was not used to int erpret this result as normal/abnormal . [address]03-18 09:01:00 Test Item Value Reference Range Interpretation Comments Basophils # (test code 0.1 See_Comment [Aut omated message] The = Basophils #) system which generated this result tra nsmitted reference range : <=0.2. The reference r jillian was not used to int erpret this result as normal/abnormal . [place] [address]-03-18 01:43:00 Test Item Value Reference Range Interpretation Comments Glucose POC (test code = Glucose POC) 111 70-99 [address]03-18 01:43:00 Test Item Value Reference Range Interpretation Comments Gluc POC Comment 1 (test code Notified RN/MD = Gluc POC Comment 1) [address]03-18 01:43:00 Test Item Value Reference Range Interpretation Comments Glucose POC (test code = Glucose POC) 111 70-99 [address]03-18 01:43:00 Test Item Value Reference Range Interpretation Comments Gluc POC Comment 1 (test code Notified RN/MD = Gluc POC Comment 1) [facility]2023-03-18 01:43:00 Test Item Value Reference Range Interpretation Comments Glucose POC (test code = Glucose POC) 111 70-99 [facility]2023-03-18 01:43:00 Test Item Value Reference Range Interpretation Comments Gluc POC Comment 1 (test code Notified RN/MD = Gluc POC Comment 1) [facility]HvaaevaWMXCYSYQLA8113-95-24 13:41:00 Test Item Value Reference Range Interpretation Comments RBC Morph (test code = Normal (12/13/22 8:41 RBC Morph) AM) [facility] HospitalJmiiofxFQNYWONTNP1249-53-27 13:41:00 Test Item Value Reference Range Interpretation Comments Plt Morph (test code = Normal (12/13/22 8:41 Plt Morph) AM) [facility] HospitalClpjeksRXTTCREOHQ1464-88-67 13:41:00 Test Item Value Reference Range Interpretation Comments RBC Morph (test code = Normal (12/13/22 8:41 RBC Morph) AM) [facility] HospitalTkzqsxpGITGZWJTQJ3439-26-17 13:41:00 Test Item Value Reference Range Interpretation Comments Plt Morph (test code = Normal (12/13/22 8:41 Plt Morph) AM) [facility] HospitalDjltuxzVZUONYFVHT3496-19-65 13:41:00 Test Item Value Reference Range Interpretation Comments RBC Morph (test code = Normal (12/13/22 8:41 RBC Morph) AM) [facility] HospitalXyxjpjrBIGTISKSBG9140-56-23 13:41:00 Test Item Value Reference Range Interpretation Comments Plt Morph (test code = Normal (12/13/22 8:41 Plt Morph) AM) [facility] AWGWXQK6212-50-00 02:46:00 Test Item Value Reference Range Interpretation Comments RBC product (test code Product available = RBC product) 2(12/12/22 9:46 PM) [facility] BANK [id number] 02:46:00 Test Item Value Reference Range Interpretation Comments RBC product (test code Product available = RBC product) 2(12/12/22 9:46 PM) [facility] SDHZCSM4101-00-27 02:46:00 Test Item Value Reference Range Interpretation Comments RBC product (test code Product available = RBC product) 2(12/12/22 9:46 PM) [facility] XPBIRAV1747-12-07 17:51:00 Test Item Value Reference Range Interpretation Comments ABO/Rh (test code = ABO/Rh) O POS [facility] WAYORHS6060-25-03 17:51:00 Test Item Value Reference Range Interpretation Comments Antibody Scrn (test Negative (12/12/22 code = Antibody Scrn) 12:51 PM) [facility] JHRVOHM2085-08-61 17:51:00 Test Item Value Reference Range Interpretation Comments ABO/Rh (test code = ABO/Rh) O POS [facility] OOCYYRZ7713-10-80 17:51:00 Test Item Value Reference Range Interpretation Comments Antibody Scrn (test Negative (12/12/22 code = Antibody Scrn) 12:51 PM) [facility]2023-03-16 17:51:00 Test Item Value Reference Range Interpretation Comments ABO/Rh (test code = ABO/Rh) O POS [facility] UEGCPVP6946-04-26 17:51:00 Test Item Value Reference Range Interpretation Comments Antibody Scrn (test Negative (12/12/22 code = Antibody Scrn) 12:51 PM) [facility] DistrictVnyelroLDDTVWAAGV4925-61-65 09:13:00 Test Item Value Reference Range Interpretation Comments Macrocyte (test code = 1+ *ABN*(12/12/22 Macrocyte) 4:13 AM) [facility] DistrictHnoszcbPCUGXRVJYG1581-78-52 09:13:00 Test Item Value Reference Range Interpretation Comments Macrocyte (test code = 1+ *ABN*(12/12/22 Macrocyte) 4:13 AM) [facility] DistrictIrvewobMHHUIJCYPL5370-66-63 09:13:00 Test Item Value Reference Range Interpretation Comments Macrocyte (test code = 1+ *ABN*(12/12/22 Macrocyte) 4:13 AM) [facility] [employer] [id number] 09:20:00 Test Item Value Reference Range Interpretation Comments Glucose Lvl (test code = Glucose Lvl) 84 70-99 [facility] [employer] [id number] 09:20:00 Test Item Value Reference Range Interpretation Comments BUN (test code = BUN) 71 7-22 [facility] [id number] 09:20:00 Test Item Value Reference Range Interpretation Comments Creatinine Lvl (test code = Creatinine 10.70 0.50-1.40 Lvl) [place] 832383-03-13 09:20:00 Test Item Value Reference Range Interpretation Comments Sodium Lvl (test code = Sodium Lvl) 133 135-145 [place] 832383-03-13 09:20:00 Test Item Value Reference Range Interpretation Comments Potassium Lvl (test code = Potassium 5.4 3.5-5.1 Lvl) [place] [address]-03-13 09:20:00 Test Item Value Reference Range Interpretation Comments Chloride Lvl (test code = Chloride Lvl) 102 95-109 [place] [address]-03-13 09:20:00 Test Item Value Reference Range Interpretation Comments CO2 (test code = CO2) 23 24-32 [place] [address]-03-13 09:20:00 Test Item Value Reference Range Interpretation Comments Calcium Lvl (test code = Calcium Lvl) 8.2 8.5-10.5 [place] [address]-03-13 09:20:00 Test Item Value Reference Range Interpretation Comments AGAP (test code = AGAP) 13.4 10.0-20.0 [place] [address]-03-13 09:20:00 Test Item Value Reference Range Interpretation Comments eGFR (test code = eGFR) 5 [place] 832383-03-13 09:20:00 Test Item Value Reference Range Interpretation Comments Glucose Lvl (test code = Glucose Lvl) 84 70-99 [place] 832383-03-13 09:20:00 Test Item Value Reference Range Interpretation Comments BUN (test code = BUN) 71 7-22 [place] 832383-03-13 09:20:00 Test Item Value Reference Range Interpretation Comments Creatinine Lvl (test code = Creatinine 10.70 0.50-1.40 Lvl) [place] 832383-03-13 09:20:00 Test Item Value Reference Range Interpretation Comments Sodium Lvl (test code = Sodium Lvl) 133 135-145 [place] 832383-03-13 09:20:00 Test Item Value Reference Range Interpretation Comments Potassium Lvl (test code = Potassium 5.4 3.5-5.1 Lvl) [place] 832383-03-13 09:20:00 Test Item Value Reference Range Interpretation Comments Chloride Lvl (test code = Chloride Lvl) 102 95-109 [place] 832383-03-13 09:20:00 Test Item Value Reference Range Interpretation Comments CO2 (test code = CO2) -32 [place] 832383-03-13 09:20:00 Test Item Value Reference Range Interpretation Comments Calcium Lvl (test code = Calcium Lvl) 8.2 8.5-10.5 [place] 832383-03-13 09:20:00 Test Item Value Reference Range Interpretation Comments AGAP (test code = AGAP) 13.4 10.0-20.0 [place] 832383-03-13 09:20:00 Test Item Value Reference Range Interpretation Comments eGFR (test code = eGFR) 5 [place] 832383-03-13 09:20:00 Test Item Value Reference Range Interpretation Comments Glucose Lvl (test code = Glucose Lvl) 84 70-99 [place] 832383-03-13 09:20:00 Test Item Value Reference Range Interpretation Comments BUN (test code = BUN) 71 7-22 [place] 832383-03-13 09:20:00 Test Item Value Reference Range Interpretation Comments Creatinine Lvl (test code = Creatinine 10.70 0.50-1.40 Lvl) [place] 832383-03-13 09:20:00 Test Item Value Reference Range Interpretation Comments Sodium Lvl (test code = Sodium Lvl) 133 135-145 [place] 832383-03-13 09:20:00 Test Item Value Reference Range Interpretation Comments Potassium Lvl (test code = Potassium 5.4 3.5-5.1 Lvl) [place] 832383-03-13 09:20:00 Test Item Value Reference Range Interpretation Comments Chloride Lvl (test code = Chloride Lvl) 102 95-109 [place] 832383-03-13 09:20:00 Test Item Value Reference Range Interpretation Comments CO2 (test code = CO2) 23 24-32 [place] 832383-03-13 09:20:00 Test Item Value Reference Range Interpretation Comments Calcium Lvl (test code = Calcium Lvl) 8.2 8.5-10.5 [place] 832383-03-13 09:20:00 Test Item Value Reference Range Interpretation Comments AGAP (test code = AGAP) 13.4 10.0-20.0 [facility] [employer] [id number] 09:20:00 Test Item Value Reference Range Interpretation Comments eGFR (test code = eGFR) 5 [facility] [id number] 09:29:00 Test Item Value Reference Range Interpretation Comments Antibody Scrn (test Negative (12/08/22 4:29 code = Antibody Scrn) AM) [facility] [id number] 09:29:00 Test Item Value Reference Range Interpretation Comments ABO/Rh (test code = ABO/Rh) O POS [facility] [employer] [id number] 09:29:00 Test Item Value Reference Range Interpretation Comments Glucose Lvl (test code = Glucose Lvl) 101 70-99 [facility] [employer] [id number] 09:29:00 Test Item Value Reference Range Interpretation Comments BUN (test code = BUN) 62 7-22 [facility] [employer] [id number] 09:29:00 Test Item Value Reference Range Interpretation Comments Creatinine Lvl (test code = Creatinine 9.67 0.50-1.40 Lvl) [facility] [employer] [id number] 09:29:00 Test Item Value Reference Range Interpretation Comments Sodium Lvl (test code = Sodium Lvl) 133 135-145 [facility] [employer] [id number] 09:29:00 Test Item Value Reference Range Interpretation Comments Potassium Lvl (test code = Potassium 5.3 3.5-5.1 Lvl) [facility] [employer] DMVFH1774-28-03 09:29:00 Test Item Value Reference Range Interpretation Comments Chloride Lvl (test code = Chloride Lvl) 103 95-109 [facility] [employer] ENCOR3621-98-09 09:29:00 Test Item Value Reference Range Interpretation Comments CO2 (test code = CO2) 24 24-32 [facility] [employer] [id number] 09:29:00 Test Item Value Reference Range Interpretation Comments AGAP (test code = AGAP) 11.3 10.0-20.0 [facility] [employer] [id number] 09:29:00 Test Item Value Reference Range Interpretation Comments Calcium Lvl (test code = Calcium Lvl) 8.2 8.5-10.5 [facility]2023-03-12 09:29:00 Test Item Value Reference Range Interpretation Comments eGFR (test code = eGFR) 6 [place] 447393-03-12 09:29:00 Test Item Value Reference Range Interpretation Comments WBC (test code = WBC) 9.0 3.7-10.4 [place] [address]-03-12 09:29:00 Test Item Value Reference Range Interpretation Comments RBC (test code = RBC) 3.27 4.70-6.10 [place] [address]-03-12 09:29:00 Test Item Value Reference Range Interpretation Comments Hgb (test code = Hgb) 11.1 14.0-18.0 [place] [address]-03-12 09:29:00 Test Item Value Reference Range Interpretation Comments Hct (test code = Hct) 33.7 42.0-54.0 [place] [address]-03-12 09:29:00 Test Item Value Reference Range Interpretation Comments MCV (test code = MCV) 102.8 80.0-94.0 [place] [address]-03-12 09:29:00 Test Item Value Reference Range Interpretation Comments MCH (test code = MCH) 33.8 pg 27.0-31.0 [place] [address]-03-12 09:29:00 Test Item Value Reference Range Interpretation Comments MCHC (test code = MCHC) 32.9 32.0-36.0 [place] [address]-03-12 09:29:00 Test Item Value Reference Range Interpretation Comments RDW (test code = RDW) 15.0 11.5-14.5 [place] [address]-03-12 09:29:00 Test Item Value Reference Range Interpretation Comments Platelet (test code = Platelet) 188 133-450 [place] [address]-03-12 09:29:00 Test Item Value Reference Range Interpretation Comments MPV (test code = MPV) 8.6 7.4-10.4 [place] [address]-03-12 09:29:00 Test Item Value Reference Range Interpretation Comments PT (test code = PT) 14.5 s 12.0-14.7 [place] [address]-03-12 09:29:00 Test Item Value Reference Range Interpretation Comments INR (test code = INR) 1.13 1 0.85-1.17 [place] [address]-03-12 09:29:00 Test Item Value Reference Range Interpretation Comments PTT (test code = PTT) 32.1 s 22.9-35.8 [place] 447393-03-12 09:29:00 Test Item Value Reference Range Interpretation Comments Segs (test code = Segs) 70.6 45.0-75.0 [place] 447393-03-12 09:29:00 Test Item Value Reference Range Interpretation Comments Lymphocytes (test code = Lymphocytes) 18.1 20.0-40.0 [place] [address]-03-12 09:29:00 Test Item Value Reference Range Interpretation Comments Monocytes (test code = Monocytes) 10.7 2.0-12.0 [place] [address]-03-12 09:29:00 Test Item Value Reference Range Interpretation Comments Eosinophils (test code = 0.2 See_Comment [A utomated message] The Eosinophils) system which ge nerated this result tra nsmitted reference range : <=4.0. The reference r jillian was not used to int erpret this result as normal/abnormal . [facility] HospitalSksfkciBGZTMZWBYV2028-92-50 09:29:00 Test Item Value Reference Range Interpretation Comments Basophils (test code = 0.4 See_Comment [Aut omated message] The Basophils) system which ge nerated this result tra nsmitted reference range : <=1.0. The reference r jillian was not used to int erpret this result as normal/abnormal . [place] 447393-03-12 09:29:00 Test Item Value Reference Range Interpretation Comments Neutrophils # (test code = Neutrophils 6.4 1.5-8.1 #) [place] [address]-03-12 09:29:00 Test Item Value Reference Range Interpretation Comments Lymphocytes # (test code = Lymphocytes 1.6 1.0-5.5 #) [place] [address]-03-12 09:29:00 Test Item Value Reference Range Interpretation Comments Monocytes # (test code 1.0 See_Comment [Aut omated message] The = Monocytes #) system which generated this result tra nsmitted reference range : <=0.8. The reference r jillian was not used to int erpret this result as normal/abnormal . [facility] DistrictOxshhjpBHIPFBIECM4235-00-80 09:29:00 Test Item Value Reference Range Interpretation Comments Macrocyte (test code = 1+ *ABN*(12/08/22 Macrocyte) 4:29 AM) [facility] HospitalCzcyuapMBCVFQPYKV8766-09-57 09:29:00 Test Item Value Reference Range Interpretation Comments PT (test code = PT) 14.5 s 12.0-14.7 [place] 447393-03-12 09:29:00 Test Item Value Reference Range Interpretation Comments INR (test code = INR) 1.13 1 0.85-1.17 [facility] DistrictIvrogpaGYXHAQDNVG3086-77-51 09:29:00 Test Item Value Reference Range Interpretation Comments PTT (test code = PTT) 32.1 s 22.9-35.8 [facility] [id number] 09:29:00 Test Item Value Reference Range Interpretation Comments Antibody Scrn (test Negative (12/08/22 4:29 code = Antibody Scrn) AM) [facility]ITALZPHJXMN8549-27-81 09:29:00 Test Item Value Reference Range Interpretation Comments ABO/Rh (test code = ABO/Rh) O POS [facility] [employer] [id number] 09:29:00 Test Item Value Reference Range Interpretation Comments Glucose Lvl (test code = Glucose Lvl) 101 70-99 [facility] [employer] [id number] 09:29:00 Test Item Value Reference Range Interpretation Comments BUN (test code = BUN) 62 7-22 [facility] [employer] [id number] 09:29:00 Test Item Value Reference Range Interpretation Comments Creatinine Lvl (test code = Creatinine 9.67 0.50-1.40 Lvl) [facility] [id number] 09:29:00 Test Item Value Reference Range Interpretation Comments Sodium Lvl (test code = Sodium Lvl) 133 135-145 [facility] [employer] [id number] 09:29:00 Test Item Value Reference Range Interpretation Comments Potassium Lvl (test code = Potassium 5.3 3.5-5.1 Lvl) [facility] [id number] 09:29:00 Test Item Value Reference Range Interpretation Comments Chloride Lvl (test code = Chloride Lvl) 103 95-109 [place] 832383-03-12 09:29:00 Test Item Value Reference Range Interpretation Comments CO2 (test code = CO2) 24 24-32 [place] [address]-03-12 09:29:00 Test Item Value Reference Range Interpretation Comments AGAP (test code = AGAP) 11.3 10.0-20.0 [place] [address]-03-12 09:29:00 Test Item Value Reference Range Interpretation Comments Calcium Lvl (test code = Calcium Lvl) 8.2 8.5-10.5 [place] 832383-03-12 09:29:00 Test Item Value Reference Range Interpretation Comments eGFR (test code = eGFR) 6 [place] 447393-03-12 09:29:00 Test Item Value Reference Range Interpretation Comments WBC (test code = WBC) 9.0 3.7-10.4 [place] [address]-03-12 09:29:00 Test Item Value Reference Range Interpretation Comments RBC (test code = RBC) 3.27 4.70-6.10 [place] [address]-03-12 09:29:00 Test Item Value Reference Range Interpretation Comments Hgb (test code = Hgb) 11.1 14.0-18.0 [place] [address]-03-12 09:29:00 Test Item Value Reference Range Interpretation Comments Hct (test code = Hct) 33.7 42.0-54.0 [place] [address]-03-12 09:29:00 Test Item Value Reference Range Interpretation Comments MCV (test code = MCV) 102.8 80.0-94.0 [place] [address]-03-12 09:29:00 Test Item Value Reference Range Interpretation Comments MCH (test code = MCH) 33.8 pg 27.0-31.0 [place] [address]-03-12 09:29:00 Test Item Value Reference Range Interpretation Comments MCHC (test code = MCHC) 32.9 32.0-36.0 [place] [address]-03-12 09:29:00 Test Item Value Reference Range Interpretation Comments RDW (test code = RDW) 15.0 11.5-14.5 [place] [address]-03-12 09:29:00 Test Item Value Reference Range Interpretation Comments Platelet (test code = Platelet) 188 133-450 [facility]MDKACUBIEG4778-95-93 09:29:00 Test Item Value Reference Range Interpretation Comments MPV (test code = MPV) 8.6 7.4-10.4 [place] 447393-03-12 09:29:00 Test Item Value Reference Range Interpretation Comments PT (test code = PT) 14.5 s 12.0-14.7 [place] 447393-03-12 09:29:00 Test Item Value Reference Range Interpretation Comments INR (test code = INR) 1.13 1 0.85-1.17 [place] 447393-03-12 09:29:00 Test Item Value Reference Range Interpretation Comments PTT (test code = PTT) 32.1 s 22.9-35.8 [place] [address]-03-12 09:29:00 Test Item Value Reference Range Interpretation Comments Segs (test code = Segs) 70.6 45.0-75.0 [place] [address]-03-12 09:29:00 Test Item Value Reference Range Interpretation Comments Lymphocytes (test code = Lymphocytes) 18.1 20.0-40.0 [place] [address]-03-12 09:29:00 Test Item Value Reference Range Interpretation Comments Monocytes (test code = Monocytes) 10.7 2.0-12.0 [facility] HospitalFnkzdzoHXMMNAGOMX3846-90-76 09:29:00 Test Item Value Reference Range Interpretation Comments Eosinophils (test code = 0.2 See_Comment [A utomated message] The Eosinophils) system which ge nerated this result tra nsmitted reference range : <=4.0. The reference r jillian was not used to int erpret this result as normal/abnormal . [facility] HospitalXxsxelvKZEZOSKNTX5361-23-84 09:29:00 Test Item Value Reference Range Interpretation Comments Basophils (test code = 0.4 See_Comment [Aut omated message] The Basophils) system which ge nerated this result tra nsmitted reference range : <=1.0. The reference r jillian was not used to int erpret this result as normal/abnormal . [facility] HospitalOfuonmfVYEUOCWWIZ0710-01-42 09:29:00 Test Item Value Reference Range Interpretation Comments Neutrophils # (test code = Neutrophils 6.4 1.5-8.1 #) [facility] HospitalNobtrofEOEQXSQWEM5536-23-08 09:29:00 Test Item Value Reference Range Interpretation Comments Lymphocytes # (test code = Lymphocytes 1.6 1.0-5.5 #) [facility]azPCORUDSGBE1122-47-42 09:29:00 Test Item Value Reference Range Interpretation Comments Monocytes # (test code 1.0 See_Comment [Aut omated message] The = Monocytes #) system which generated this result tra nsmitted reference range : <=0.8. The reference r jillian was not used to int erpret this result as normal/abnormal . [facility] CenterZxgsusdJLBXIMYFLP5610-33-06 09:29:00 Test Item Value Reference Range Interpretation Comments Macrocyte (test code = 1+ *ABN*(12/08/22 Macrocyte) 4:29 AM) [facility] CenterQciimjdTIKWJWIOFU1774-22-98 09:29:00 Test Item Value Reference Range Interpretation Comments PT (test code = PT) 14.5 s 12.0-14.7 [facility] NyitstjEUGJLFBRWX2838-97-47 09:29:00 Test Item Value Reference Range Interpretation Comments INR (test code = INR) 1.13 1 0.85-1.17 [facility] CenterSpixuphDTTDWAPOUB7461-98-46 09:29:00 Test Item Value Reference Range Interpretation Comments PTT (test code = PTT) 32.1 s 22.9-35.8 [facility] [employer] [id number] 09:29:00 Test Item Value Reference Range Interpretation Comments Antibody Scrn (test Negative (12/08/22 4:29 code = Antibody Scrn) AM) [facility] [employer] [id number] 09:29:00 Test Item Value Reference Range Interpretation Comments ABO/Rh (test code = ABO/Rh) O POS [facility]2023-03-12 09:29:00 Test Item Value Reference Range Interpretation Comments Glucose Lvl (test code = Glucose Lvl) 101 70-99 [facility]2023-03-12 09:29:00 Test Item Value Reference Range Interpretation Comments BUN (test code = BUN) 62 7-22 [facility] [employer] [id number] 09:29:00 Test Item Value Reference Range Interpretation Comments Creatinine Lvl (test code = Creatinine 9.67 0.50-1.40 Lvl) [place] 832383-03-12 09:29:00 Test Item Value Reference Range Interpretation Comments Sodium Lvl (test code = Sodium Lvl) 133 135-145 [place] [address]-03-12 09:29:00 Test Item Value Reference Range Interpretation Comments Potassium Lvl (test code = Potassium 5.3 3.5-5.1 Lvl) [place] 832383-03-12 09:29:00 Test Item Value Reference Range Interpretation Comments Chloride Lvl (test code = Chloride Lvl) 103 95-109 [place] [address]-03-12 09:29:00 Test Item Value Reference Range Interpretation Comments CO2 (test code = CO2) 24 24-32 [place] [address]-03-12 09:29:00 Test Item Value Reference Range Interpretation Comments AGAP (test code = AGAP) 11.3 10.0-20.0 [place] [address]-03-12 09:29:00 Test Item Value Reference Range Interpretation Comments Calcium Lvl (test code = Calcium Lvl) 8.2 8.5-10.5 [place] [address]-03-12 09:29:00 Test Item Value Reference Range Interpretation Comments eGFR (test code = eGFR) 6 [place] [address]-03-12 09:29:00 Test Item Value Reference Range Interpretation Comments WBC (test code = WBC) 9.0 3.7-10.4 [place] [address]-03-12 09:29:00 Test Item Value Reference Range Interpretation Comments RBC (test code = RBC) 3.27 4.70-6.10 [place] [address]-03-12 09:29:00 Test Item Value Reference Range Interpretation Comments Hgb (test code = Hgb) 11.1 14.0-18.0 [address]03-12 09:29:00 Test Item Value Reference Range Interpretation Comments Hct (test code = Hct) 33.7 42.0-54.0 [place] [address]-03-12 09:29:00 Test Item Value Reference Range Interpretation Comments MCV (test code = MCV) 102.8 80.0-94.0 [address]03-12 09:29:00 Test Item Value Reference Range Interpretation Comments MCH (test code = MCH) 33.8 pg 27.0-31.0 [place] 447393-03-12 09:29:00 Test Item Value Reference Range Interpretation Comments MCHC (test code = MCHC) 32.9 32.0-36.0 [place] 447393-03-12 09:29:00 Test Item Value Reference Range Interpretation Comments RDW (test code = RDW) 15.0 11.5-14.5 [place] 447393-03-12 09:29:00 Test Item Value Reference Range Interpretation Comments Platelet (test code = Platelet) 188 133-450 [place] 447393-03-12 09:29:00 Test Item Value Reference Range Interpretation Comments MPV (test code = MPV) 8.6 7.4-10.4 [place] [address]-03-12 09:29:00 Test Item Value Reference Range Interpretation Comments PT (test code = PT) 14.5 s 12.0-14.7 [place] [address]-03-12 09:29:00 Test Item Value Reference Range Interpretation Comments INR (test code = INR) 1.13 1 0.85-1.17 [place] 447393-03-12 09:29:00 Test Item Value Reference Range Interpretation Comments PTT (test code = PTT) 32.1 s 22.9-35.8 [place] [address]-03-12 09:29:00 Test Item Value Reference Range Interpretation Comments Segs (test code = Segs) 70.6 45.0-75.0 [place] 447393-03-12 09:29:00 Test Item Value Reference Range Interpretation Comments Lymphocytes (test code = Lymphocytes) 18.1 20.0-40.0 [place] [address]-03-12 09:29:00 Test Item Value Reference Range Interpretation Comments Monocytes (test code = Monocytes) 10.7 2.0-12.0 [place] [address]-03-12 09:29:00 Test Item Value Reference Range Interpretation Comments Eosinophils (test code = 0.2 See_Comment [A utomated message] The Eosinophils) system which ge nerated this result tra nsmitted reference range : <=4.0. The reference r jillian was not used to int erpret this result as normal/abnormal . [place] [address]-03-12 09:29:00 Test Item Value Reference Range Interpretation Comments Basophils (test code = 0.4 See_Comment [Aut omated message] The Basophils) system which ge nerated this result tra nsmitted reference range : <=1.0. The reference r jillian was not used to int erpret this result as normal/abnormal . [place] 447393-03-12 09:29:00 Test Item Value Reference Range Interpretation Comments Neutrophils # (test code = Neutrophils 6.4 1.5-8.1 #) [place] 447393-03-12 09:29:00 Test Item Value Reference Range Interpretation Comments Lymphocytes # (test code = Lymphocytes 1.6 1.0-5.5 #) [place] [address]-03-12 09:29:00 Test Item Value Reference Range Interpretation Comments Monocytes # (test code 1.0 See_Comment [Aut omated message] The = Monocytes #) system which generated this result tra nsmitted reference range : <=0.8. The reference r jillian was not used to int erpret this result as normal/abnormal . [place] [address]-03-12 09:29:00 Test Item Value Reference Range Interpretation Comments Macrocyte (test code = 1+ *ABN*(12/08/22 Macrocyte) 4:29 AM) [place] [address]-03-12 09:29:00 Test Item Value Reference Range Interpretation Comments PT (test code = PT) 14.5 s 12.0-14.7 [place] [address]-03-12 09:29:00 Test Item Value Reference Range Interpretation Comments INR (test code = INR) 1.13 1 0.85-1.17 [place] [address]-03-12 09:29:00 Test Item Value Reference Range Interpretation Comments PTT (test code = PTT) 32.1 s 22.9-35.8 [place] 832383-03-11 11:20:00 Test Item Value Reference Range Interpretation Comments Glucose Lvl (test code = Glucose Lvl) 125 70-99 [place] 832383-03-11 11:20:00 Test Item Value Reference Range Interpretation Comments BUN (test code = BUN) 49 7-22 [place] 832383-03-11 11:20:00 Test Item Value Reference Range Interpretation Comments Creatinine Lvl (test code = Creatinine 8.68 0.50-1.40 Lvl) [place] 832383-03-11 11:20:00 Test Item Value Reference Range Interpretation Comments Sodium Lvl (test code = Sodium Lvl) 131 135-145 [place] 832383-03-11 11:20:00 Test Item Value Reference Range Interpretation Comments Potassium Lvl (test code = Potassium 5.4 3.5-5.1 Lvl) [place] 832383-03-11 11:20:00 Test Item Value Reference Range Interpretation Comments Chloride Lvl (test code = Chloride Lvl) 102 95-109 [place] 832383-03-11 11:20:00 Test Item Value Reference Range Interpretation Comments CO2 (test code = CO2) 22 24-32 [place] [address]-03-11 11:20:00 Test Item Value Reference Range Interpretation Comments AGAP (test code = AGAP) 12.4 10.0-20.0 [place] 832383-03-11 11:20:00 Test Item Value Reference Range Interpretation Comments Calcium Lvl (test code = Calcium Lvl) 8.8 8.5-10.5 [facility]2023-03-11 11:20:00 Test Item Value Reference Range Interpretation Comments eGFR (test code = eGFR) 7 [facility] HospitalXfumkmdUMGQYBULQO5100-68-07 11:20:00 Test Item Value Reference Range Interpretation Comments WBC (test code = WBC) 13.5 3.7-10.4 [place] [address]-03-11 11:20:00 Test Item Value Reference Range Interpretation Comments RBC (test code = RBC) 3.62 4.70-6.10 [place] [address]-03-11 11:20:00 Test Item Value Reference Range Interpretation Comments Hgb (test code = Hgb) 12.1 14.0-18.0 [place] [address]-03-11 11:20:00 Test Item Value Reference Range Interpretation Comments Hct (test code = Hct) 37.2 42.0-54.0 [place] [address]-03-11 11:20:00 Test Item Value Reference Range Interpretation Comments MCV (test code = MCV) 102.8 80.0-94.0 [place] [address]-03-11 11:20:00 Test Item Value Reference Range Interpretation Comments MCH (test code = MCH) 33.5 pg 27.0-31.0 [facility] HospitalWkeribvZAQDMDYVDY8186-59-46 11:20:00 Test Item Value Reference Range Interpretation Comments MCHC (test code = MCHC) 32.6 32.0-36.0 [facility] HospitalXcuarkqGOMHEPPNCF0099-51-86 11:20:00 Test Item Value Reference Range Interpretation Comments RDW (test code = RDW) 15.1 11.5-14.5 [place] 447393-03-11 11:20:00 Test Item Value Reference Range Interpretation Comments Platelet (test code = Platelet) 195 133-450 [facility] HospitalYdpuntvWVNEPZULCR8014-05-27 11:20:00 Test Item Value Reference Range Interpretation Comments MPV (test code = MPV) 8.4 7.4-10.4 [facility] HospitalSpffjmwXOQCZTUKKQ0902-30-64 11:20:00 Test Item Value Reference Range Interpretation Comments Segs (test code = Segs) 84.0 45.0-75.0 [facility] HospitalJmbecuyMHUYZQFPMC6060-80-00 11:20:00 Test Item Value Reference Range Interpretation Comments Lymphocytes (test code = Lymphocytes) 6.4 20.0-40.0 [facility] HospitalUaiaqndEDWNWNIVCJ4222-11-24 11:20:00 Test Item Value Reference Range Interpretation Comments Monocytes (test code = Monocytes) 9.5 2.0-12.0 [facility] HospitalXjkybmxCIATBQIPXB4370-98-15 11:20:00 Test Item Value Reference Range Interpretation Comments Basophils (test code = 0.1 See_Comment [Aut omated message] The Basophils) system which ge nerated this result tra nsmitted reference range : <=1.0. The reference r jillian was not used to int erpret this result as normal/abnormal . [facility] HospitalYoeomrtKFZOMCKWDB3650-51-62 11:20:00 Test Item Value Reference Range Interpretation Comments Neutrophils # (test code = Neutrophils 11.4 1.5-8.1 #) [facility] HospitalGpfalmkROGOLFGLDG2173-66-02 11:20:00 Test Item Value Reference Range Interpretation Comments Lymphocytes # (test code = Lymphocytes 0.9 1.0-5.5 #) [facility] HospitalOvjbmumAGVZNEGCBC7021-51-71 11:20:00 Test Item Value Reference Range Interpretation Comments Monocytes # (test code 1.3 See_Comment [Aut omated message] The = Monocytes #) system which generated this result tra nsmitted reference range : <=0.8. The reference r jillian was not used to int erpret this result as normal/abnormal . [facility] HospitalPxwufatVXWVAKPDJE8204-85-93 11:20:00 Test Item Value Reference Range Interpretation Comments Macrocyte (test code = 1+ *ABN*(12/07/22 Macrocyte) 5:20 AM) [place] 832383-03-11 11:20:00 Test Item Value Reference Range Interpretation Comments Glucose Lvl (test code = Glucose Lvl) 125 70-99 [facility]2023-03-11 11:20:00 Test Item Value Reference Range Interpretation Comments BUN (test code = BUN) 49 7-22 [place] 832383-03-11 11:20:00 Test Item Value Reference Range Interpretation Comments Creatinine Lvl (test code = Creatinine 8.68 0.50-1.40 Lvl) [facility]2023-03-11 11:20:00 Test Item Value Reference Range Interpretation Comments Sodium Lvl (test code = Sodium Lvl) 131 135-145 [facility]2023-03-11 11:20:00 Test Item Value Reference Range Interpretation Comments Potassium Lvl (test code = Potassium 5.4 3.5-5.1 Lvl) [facility]2023-03-11 11:20:00 Test Item Value Reference Range Interpretation Comments Chloride Lvl (test code = Chloride Lvl) 102 95-109 [place] 832383-03-11 11:20:00 Test Item Value Reference Range Interpretation Comments CO2 (test code = CO2) 22 24-32 [facility]2023-03-11 11:20:00 Test Item Value Reference Range Interpretation Comments AGAP (test code = AGAP) 12.4 10.0-20.0 [facility]2023-03-11 11:20:00 Test Item Value Reference Range Interpretation Comments Calcium Lvl (test code = Calcium Lvl) 8.8 8.5-10.5 [place] 832383-03-11 11:20:00 Test Item Value Reference Range Interpretation Comments eGFR (test code = eGFR) 7 [facility] HospitalVbzcpdlIWPVIYZTCZ5428-91-87 11:20:00 Test Item Value Reference Range Interpretation Comments WBC (test code = WBC) 13.5 3.7-10.4 [facility] HospitalLipkugjBQOCOIYQKK1954-85-78 11:20:00 Test Item Value Reference Range Interpretation Comments RBC (test code = RBC) 3.62 4.70-6.10 [facility] HospitalNsmkbzbHODIPVXWQB3820-87-40 11:20:00 Test Item Value Reference Range Interpretation Comments Hgb (test code = Hgb) 12.1 14.0-18.0 [facility] HospitalFchhnkzKAXIQZFHNL7561-93-46 11:20:00 Test Item Value Reference Range Interpretation Comments Hct (test code = Hct) 37.2 42.0-54.0 [facility] HospitalCqvtgxnVIUCKZXUVJ7025-25-69 11:20:00 Test Item Value Reference Range Interpretation Comments MCV (test code = MCV) 102.8 80.0-94.0 [facility] HospitalZlgoovkPZXHUKCUIU4015-33-95 11:20:00 Test Item Value Reference Range Interpretation Comments MCH (test code = MCH) 33.5 pg 27.0-31.0 [facility] HospitalXtzzjkcPOTLDILYES8531-61-53 11:20:00 Test Item Value Reference Range Interpretation Comments MCHC (test code = MCHC) 32.6 32.0-36.0 [facility] HospitalJwiulxbRHMKCAGQLH5828-78-82 11:20:00 Test Item Value Reference Range Interpretation Comments RDW (test code = RDW) 15.1 11.5-14.5 [facility] HospitalRijhwxjGRFSXSFAME8908-50-25 11:20:00 Test Item Value Reference Range Interpretation Comments Platelet (test code = Platelet) 195 133-450 [facility] HospitalDnvhytmKYLYKGRNNX3835-57-57 11:20:00 Test Item Value Reference Range Interpretation Comments MPV (test code = MPV) 8.4 7.4-10.4 [facility] HospitalXabrrfkUISNSNAJUY7581-32-45 11:20:00 Test Item Value Reference Range Interpretation Comments Segs (test code = Segs) 84.0 45.0-75.0 [facility] HospitalNcgczicZZSMJFEKIA4069-91-45 11:20:00 Test Item Value Reference Range Interpretation Comments Lymphocytes (test code = Lymphocytes) 6.4 20.0-40.0 [facility] HospitalAdtovmqSUIHDUOOHR8358-18-45 11:20:00 Test Item Value Reference Range Interpretation Comments Monocytes (test code = Monocytes) 9.5 2.0-12.0 [place] [address]-03-11 11:20:00 Test Item Value Reference Range Interpretation Comments Basophils (test code = 0.1 See_Comment [Aut omated message] The Basophils) system which ge nerated this result tra nsmitted reference range : <=1.0. The reference r jillian was not used to int erpret this result as normal/abnormal . [place] 447393-03-11 11:20:00 Test Item Value Reference Range Interpretation Comments Neutrophils # (test code = Neutrophils 11.4 1.5-8.1 #) [place] 447393-03-11 11:20:00 Test Item Value Reference Range Interpretation Comments Lymphocytes # (test code = Lymphocytes 0.9 1.0-5.5 #) [place] [address]-03-11 11:20:00 Test Item Value Reference Range Interpretation Comments Monocytes # (test code 1.3 See_Comment [Aut omated message] The = Monocytes #) system which generated this result tra nsmitted reference range : <=0.8. The reference r jillian was not used to int erpret this result as normal/abnormal . [facility] HospitalMphhnbaMAYYDFUSEZ8442-15-52 11:20:00 Test Item Value Reference Range Interpretation Comments Macrocyte (test code = 1+ *ABN*(12/07/22 Macrocyte) 5:20 AM) [place] 832383-03-11 11:20:00 Test Item Value Reference Range Interpretation Comments Glucose Lvl (test code = Glucose Lvl) 125 70-99 [place] 832383-03-11 11:20:00 Test Item Value Reference Range Interpretation Comments BUN (test code = BUN) 49 7-22 [place] 832383-03-11 11:20:00 Test Item Value Reference Range Interpretation Comments Creatinine Lvl (test code = Creatinine 8.68 0.50-1.40 Lvl) [place] 832383-03-11 11:20:00 Test Item Value Reference Range Interpretation Comments Sodium Lvl (test code = Sodium Lvl) 131 135-145 [place] 832383-03-11 11:20:00 Test Item Value Reference Range Interpretation Comments Potassium Lvl (test code = Potassium 5.4 3.5-5.1 Lvl) [place] 832383-03-11 11:20:00 Test Item Value Reference Range Interpretation Comments Chloride Lvl (test code = Chloride Lvl) 102 95-109 [place] 832383-03-11 11:20:00 Test Item Value Reference Range Interpretation Comments CO2 (test code = CO2) 22 24-32 [place] 832383-03-11 11:20:00 Test Item Value Reference Range Interpretation Comments AGAP (test code = AGAP) 12.4 10.0-20.0 [place] 832383-03-11 11:20:00 Test Item Value Reference Range Interpretation Comments Calcium Lvl (test code = Calcium Lvl) 8.8 8.5-10.5 [facility]2023-03-11 11:20:00 Test Item Value Reference Range Interpretation Comments eGFR (test code = eGFR) 7 [facility] HospitalDayxrcyILIBKULEBZ1872-51-61 11:20:00 Test Item Value Reference Range Interpretation Comments WBC (test code = WBC) 13.5 3.7-10.4 [facility] HospitalNzlxjvkNEGAZYNVBS5090-41-35 11:20:00 Test Item Value Reference Range Interpretation Comments RBC (test code = RBC) 3.62 4.70-6.10 [facility] HospitalKpsopnlBCGNRFKMSE9438-13-22 11:20:00 Test Item Value Reference Range Interpretation Comments Hgb (test code = Hgb) 12.1 14.0-18.0 [place] 447393-03-11 11:20:00 Test Item Value Reference Range Interpretation Comments Hct (test code = Hct) 37.2 42.0-54.0 [place] 447393-03-11 11:20:00 Test Item Value Reference Range Interpretation Comments MCV (test code = MCV) 102.8 80.0-94.0 [place] 447393-03-11 11:20:00 Test Item Value Reference Range Interpretation Comments MCH (test code = MCH) 33.5 pg 27.0-31.0 [place] 447393-03-11 11:20:00 Test Item Value Reference Range Interpretation Comments MCHC (test code = MCHC) 32.6 32.0-36.0 [place] [address]-03-11 11:20:00 Test Item Value Reference Range Interpretation Comments RDW (test code = RDW) 15.1 11.5-14.5 [facility] HospitalEaknxjlWEMWNSFMYY6701-16-46 11:20:00 Test Item Value Reference Range Interpretation Comments Platelet (test code = Platelet) 195 133-450 [facility] HospitalNcycurbKQEKIKJTKL2674-59-50 11:20:00 Test Item Value Reference Range Interpretation Comments MPV (test code = MPV) 8.4 7.4-10.4 [facility] HospitalIaskxppKQADFSOGMW6011-33-71 11:20:00 Test Item Value Reference Range Interpretation Comments Segs (test code = Segs) 84.0 45.0-75.0 [place] 447393-03-11 11:20:00 Test Item Value Reference Range Interpretation Comments Lymphocytes (test code = Lymphocytes) 6.4 20.0-40.0 [facility] HospitalNslvxlpYBTUFVMNPT7396-73-26 11:20:00 Test Item Value Reference Range Interpretation Comments Monocytes (test code = Monocytes) 9.5 2.0-12.0 [facility]HbutvlpMPESJSGWIM0835-40-07 11:20:00 Test Item Value Reference Range Interpretation Comments Basophils (test code = 0.1 See_Comment [Aut omated message] The Basophils) system which ge nerated this result tra nsmitted reference range : <=1.0. The reference r jillian was not used to int erpret this result as normal/abnormal . [facility] HospitalUattmbnCXWEWZRSQZ3942-16-98 11:20:00 Test Item Value Reference Range Interpretation Comments Neutrophils # (test code = Neutrophils 11.4 1.5-8.1 #) [facility] HospitalScdezsnNIVHHLXJOM5029-10-00 11:20:00 Test Item Value Reference Range Interpretation Comments Lymphocytes # (test code = Lymphocytes 0.9 1.0-5.5 #) [place] [address]-03-11 11:20:00 Test Item Value Reference Range Interpretation Comments Monocytes # (test code 1.3 See_Comment [Aut omated message] The = Monocytes #) system which generated this result tra nsmitted reference range : <=0.8. The reference r jillian was not used to int erpret this result as normal/abnormal . [place] 447393-03-11 11:20:00 Test Item Value Reference Range Interpretation Comments Macrocyte (test code = 1+ *ABN*(12/07/22 Macrocyte) 5:20 AM) [place] 723613-03-10 15:43:00 Test Item Value Reference Range Interpretation Comments Gluc POC Comment 2 (test code = Cleaned Meter Gluc POC Comment 2) [place] [address]-03-10 15:43:00 Test Item Value Reference Range Interpretation Comments Gluc POC Comment 2 (test code = Cleaned Meter Gluc POC Comment 2) [place] [address]-03-10 15:43:00 Test Item Value Reference Range Interpretation Comments Gluc POC Comment 2 (test code = Cleaned Meter Gluc POC Comment 2) [place] 447393-03-10 14:37:00 Test Item Value Reference Range Interpretation Comments WBC (test code = WBC) 8.5 3.7-10.4 [place] 447393-03-10 14:37:00 Test Item Value Reference Range Interpretation Comments RBC (test code = RBC) 3.56 4.70-6.10 [place] 447393-03-10 14:37:00 Test Item Value Reference Range Interpretation Comments Hgb (test code = Hgb) 12.1 14.0-18.0 [place] [address]-03-10 14:37:00 Test Item Value Reference Range Interpretation Comments Hct (test code = Hct) 37.2 42.0-54.0 [place] [address]-03-10 14:37:00 Test Item Value Reference Range Interpretation Comments MCV (test code = MCV) 104.6 80.0-94.0 [place] [address]-03-10 14:37:00 Test Item Value Reference Range Interpretation Comments MCH (test code = MCH) 33.9 pg 27.0-31.0 [place] [address]-03-10 14:37:00 Test Item Value Reference Range Interpretation Comments MCHC (test code = MCHC) 32.4 32.0-36.0 [place] [address]-03-10 14:37:00 Test Item Value Reference Range Interpretation Comments RDW (test code = RDW) 15.1 11.5-14.5 [place] 447393-03-10 14:37:00 Test Item Value Reference Range Interpretation Comments Platelet (test code = Platelet) 189 133-450 [facility] HospitalMmdfquuPDWBYZCUOU5205-79-84 14:37:00 Test Item Value Reference Range Interpretation Comments MPV (test code = MPV) 7.9 7.4-10.4 [facility] HospitalTpygvnaOXKLYAVLAT0990-35-76 14:37:00 Test Item Value Reference Range Interpretation Comments WBC (test code = WBC) 8.5 3.7-10.4 [facility] HospitalLwrjdwaFBOJZTSDVB5604-76-28 14:37:00 Test Item Value Reference Range Interpretation Comments RBC (test code = RBC) 3.56 4.70-6.10 [facility] HospitalWedcfjkOWIVXTHZDY9684-38-64 14:37:00 Test Item Value Reference Range Interpretation Comments Hgb (test code = Hgb) 12.1 14.0-18.0 [facility] HospitalDgvnbnmGUVOXCTPLO6300-68-45 14:37:00 Test Item Value Reference Range Interpretation Comments Hct (test code = Hct) 37.2 42.0-54.0 [facility] HospitalUlswdnaNKEUVUBGFW0027-19-37 14:37:00 Test Item Value Reference Range Interpretation Comments MCV (test code = MCV) 104.6 80.0-94.0 [facility] HospitalNfvyzpdAUPTZECCNW3797-63-79 14:37:00 Test Item Value Reference Range Interpretation Comments MCH (test code = MCH) 33.9 pg 27.0-31.0 [facility] HospitalOuecbziUFLKJDGLTY9211-13-80 14:37:00 Test Item Value Reference Range Interpretation Comments MCHC (test code = MCHC) 32.4 32.0-36.0 [facility] HospitalWaykboeJBGINBXUOQ5595-86-32 14:37:00 Test Item Value Reference Range Interpretation Comments RDW (test code = RDW) 15.1 11.5-14.5 [facility] HospitalAawkkoiMNNXOCQZUJ4015-88-54 14:37:00 Test Item Value Reference Range Interpretation Comments Platelet (test code = Platelet) 189 133-450 [facility] HospitalBgrdafvWBDWHHYRPY4189-81-58 14:37:00 Test Item Value Reference Range Interpretation Comments MPV (test code = MPV) 7.9 7.4-10.4 [facility] HospitalLhsvyjlJPPBNKDUJE4374-75-51 14:37:00 Test Item Value Reference Range Interpretation Comments WBC (test code = WBC) 8.5 3.7-10.4 [facility] HospitalZiscqvvBGLELNZHTK7214-35-70 14:37:00 Test Item Value Reference Range Interpretation Comments RBC (test code = RBC) 3.56 4.70-6.10 [facility] HospitalUyzwsjpOCWXTLKDOM9401-67-39 14:37:00 Test Item Value Reference Range Interpretation Comments Hgb (test code = Hgb) 12.1 14.0-18.0 [facility] HospitalIpsdvhnQCUQUTQNQC9990-37-62 14:37:00 Test Item Value Reference Range Interpretation Comments Hct (test code = Hct) 37.2 42.0-54.0 [facility] HospitalVntulygOPMFZICAJS5025-86-89 14:37:00 Test Item Value Reference Range Interpretation Comments MCV (test code = MCV) 104.6 80.0-94.0 [facility] HospitalLqirpssXNEDBZGEPF1407-17-71 14:37:00 Test Item Value Reference Range Interpretation Comments MCH (test code = MCH) 33.9 pg 27.0-31.0 [facility] HospitalAnbpxurQPHUTTFYLY4216-71-15 14:37:00 Test Item Value Reference Range Interpretation Comments MCHC (test code = MCHC) 32.4 32.0-36.0 [facility] HospitalQlnsimfXSNKIQJAJD9086-41-71 14:37:00 Test Item Value Reference Range Interpretation Comments RDW (test code = RDW) 15.1 11.5-14.5 [facility] HospitalDkbligdCZTIBCZYFG4628-34-53 14:37:00 Test Item Value Reference Range Interpretation Comments Platelet (test code = Platelet) 189 133-450 [facility] HospitalFfdjsqlJNKKFXNEPT7500-57-27 14:37:00 Test Item Value Reference Range Interpretation Comments MPV (test code = MPV) 7.9 7.4-10.4 [facility]JshrxqjRDFCAO2979-87-73 13:44:17 Test Item Value Reference Range Interpretation [...] placement. Matty Cote MD On 12/06/2022 07:43:05; [id number] [facility] DistrictMpyysvzBTWVXP3019-19-10 13:44:17 Test Item Value Reference Range Interpretation [...] placement. Matty Cote MD On 12/06/2022 07:43:05; [id number] [facility]QJFQVP5156-91-73 13:44:17 Test Item Value Reference Range Interpretation [...] placement. Matty Cote MD On 12/06/2022 07:43:05; [id number] [facility]OxtbnijTSYOVOUXJO6554-85-87 18:34:00 Test Item Value Reference Range Interpretation Comments Coronavirus (COVID-19) Not Detected (12/05/22 CHUCKIE (test code = 12:34 PM) Coronavirus (COVID-19) CHUCKIE) [place] [address]-03-09 18:34:00 Test Item Value Reference Range Interpretation Comments Coronavirus (COVID-19) Not Detected (12/05/22 CHUCKIE (test code = 12:34 PM) Coronavirus (COVID-19) CHUCKIE) [place] [address]-03-09 18:34:00 Test Item Value Reference Range Interpretation Comments Coronavirus (COVID-19) Not Detected (12/05/22 CHUCKIE (test code = 12:34 PM) Coronavirus (COVID-19) CHUCKIE) [place] [address]-03-09 18:34:00 Test Item Value Reference Range Interpretation Comments Coronavirus (COVID-19) Not Detected (12/05/22 CHUCKIE (test code = 12:34 PM) Coronavirus (COVID-19) CHUCKIE) [facility] CenterWculkfaVYSLTYBSMI2681-57-88 18:34:00 Test Item Value Reference Range Interpretation Comments Coronavirus (COVID-19) Not Detected (12/05/22 CHUCKIE (test code = 12:34 PM) Coronavirus (COVID-19) CHUCKIE) [facility] CenterPygrqqsTRPURNXQHS8880-74-20 18:34:00 Test Item Value Reference Range Interpretation Comments Coronavirus (COVID-19) Not Detected (12/05/22 CHUCKIE (test code = 12:34 PM) Coronavirus (COVID-19) CHUCKIE) [facility] HospitalWzncawaTBNYQUJKAG1709-72-39 23:51:00 Test Item Value Reference Range Interpretation Comments PT (test code = PT) 14.3 s 12.0-14.7 [place] [address]-03-08 23:51:00 Test Item Value Reference Range Interpretation Comments INR (test code = INR) 1.11 1 0.85-1.17 [place] [address]-03-08 23:51:00 Test Item Value Reference Range Interpretation Comments PTT (test code = PTT) 32.3 s 22.9-35.8 [place] [address]-03-08 23:51:00 Test Item Value Reference Range Interpretation Comments Segs (test code = Segs) 74.5 45.0-75.0 [place] [address]-03-08 23:51:00 Test Item Value Reference Range Interpretation Comments Lymphocytes (test code = Lymphocytes) 15.6 20.0-40.0 [place] [address]-03-08 23:51:00 Test Item Value Reference Range Interpretation Comments Monocytes (test code = Monocytes) 6.9 2.0-12.0 [place] [address]-03-08 23:51:00 Test Item Value Reference Range Interpretation Comments Eosinophils (test code = 2.3 See_Comment [A utomated message] The Eosinophils) system which ge nerated this result tra nsmitted reference range : <=4.0. The reference r jillian was not used to int erpret this result as normal/abnormal . [place] [address]-03-08 23:51:00 Test Item Value Reference Range Interpretation Comments Basophils (test code = 0.7 See_Comment [Aut omated message] The Basophils) system which ge nerated this result tra nsmitted reference range : <=1.0. The reference r jillian was not used to int erpret this result as normal/abnormal . [place] [address]-03-08 23:51:00 Test Item Value Reference Range Interpretation Comments Neutrophils # (test code = Neutrophils 6.1 1.5-8.1 #) [place] [address]-03-08 23:51:00 Test Item Value Reference Range Interpretation Comments Lymphocytes # (test code = Lymphocytes 1.3 1.0-5.5 #) [place] [address]-03-08 23:51:00 Test Item Value Reference Range Interpretation Comments Monocytes # (test code 0.6 See_Comment [Aut omated message] The = Monocytes #) system which generated this result tra nsmitted reference range : <=0.8. The reference r jillian was not used to int erpret this result as normal/abnormal . [place] [address]-03-08 23:51:00 Test Item Value Reference Range Interpretation Comments Eosinophils # (test code 0.2 See_Comment [A utomated message] The = Eosinophils #) system whic h generated this result tra nsmitted reference range : <=0.5. The reference r jillian was not used to int erpret this result as normal/abnormal . [facility] HospitalRgxcefmNEWIYOJCKV5622-86-97 23:51:00 Test Item Value Reference Range Interpretation Comments Basophils # (test code 0.1 See_Comment [Aut omated message] The = Basophils #) system which generated this result tra nsmitted reference range : <=0.2. The reference r jillian was not used to int erpret this result as normal/abnormal . [facility] HospitalLyfwhxyFLPCVTQUWZ0706-39-08 23:51:00 Test Item Value Reference Range Interpretation Comments Macrocyte (test code = 1+ *ABN*(12/04/22 5:51 Macrocyte) PM) [place] [address]-03-08 23:51:00 Test Item Value Reference Range Interpretation Comments PT (test code = PT) 14.3 s 12.0-14.7 [place] 447393-03-08 23:51:00 Test Item Value Reference Range Interpretation Comments INR (test code = INR) 1.11 1 0.85-1.17 [place] [address]-03-08 23:51:00 Test Item Value Reference Range Interpretation Comments PTT (test code = PTT) 32.3 s 22.9-35.8 [place] [address]-03-08 23:51:00 Test Item Value Reference Range Interpretation Comments Segs (test code = Segs) 74.5 45.0-75.0 [place] 447393-03-08 23:51:00 Test Item Value Reference Range Interpretation Comments Lymphocytes (test code = Lymphocytes) 15.6 20.0-40.0 [place] [address]-03-08 23:51:00 Test Item Value Reference Range Interpretation Comments Monocytes (test code = Monocytes) 6.9 2.0-12.0 [place] [address]-03-08 23:51:00 Test Item Value Reference Range Interpretation Comments Eosinophils (test code = 2.3 See_Comment [A utomated message] The Eosinophils) system which ge nerated this result tra nsmitted reference range : <=4.0. The reference r jillian was not used to int erpret this result as normal/abnormal . [place] 447393-03-08 23:51:00 Test Item Value Reference Range Interpretation Comments Basophils (test code = 0.7 See_Comment [Aut omated message] The Basophils) system which ge nerated this result tra nsmitted reference range : <=1.0. The reference r jillian was not used to int erpret this result as normal/abnormal . [place] 447393-03-08 23:51:00 Test Item Value Reference Range Interpretation Comments Neutrophils # (test code = Neutrophils 6.1 1.5-8.1 #) [place] 447393-03-08 23:51:00 Test Item Value Reference Range Interpretation Comments Lymphocytes # (test code = Lymphocytes 1.3 1.0-5.5 #) [place] [address]-03-08 23:51:00 Test Item Value Reference Range Interpretation Comments Monocytes # (test code 0.6 See_Comment [Aut omated message] The = Monocytes #) system which generated this result tra nsmitted reference range : <=0.8. The reference r jillian was not used to int erpret this result as normal/abnormal . [facility] HospitalYezxbtgUWXIXDEUVW9128-60-59 23:51:00 Test Item Value Reference Range Interpretation Comments Eosinophils # (test code 0.2 See_Comment [A utomated message] The = Eosinophils #) system whic h generated this result tra nsmitted reference range : <=0.5. The reference r jillian was not used to int erpret this result as normal/abnormal . [place] 447393-03-08 23:51:00 Test Item Value Reference Range Interpretation Comments Basophils # (test code 0.1 See_Comment [Aut omated message] The = Basophils #) system which generated this result tra nsmitted reference range : <=0.2. The reference r jillian was not used to int erpret this result as normal/abnormal . [place] 447393-03-08 23:51:00 Test Item Value Reference Range Interpretation Comments Macrocyte (test code = 1+ *ABN*(12/04/22 5:51 Macrocyte) PM) [place] [address]-03-08 23:51:00 Test Item Value Reference Range Interpretation Comments PT (test code = PT) 14.3 s 12.0-14.7 [place] [address]-03-08 23:51:00 Test Item Value Reference Range Interpretation Comments INR (test code = INR) 1.11 1 0.85-1.17 [place] [address]-03-08 23:51:00 Test Item Value Reference Range Interpretation Comments PTT (test code = PTT) 32.3 s 22.9-35.8 [place] [address]-03-08 23:51:00 Test Item Value Reference Range Interpretation Comments Segs (test code = Segs) 74.5 45.0-75.0 [place] [address]-03-08 23:51:00 Test Item Value Reference Range Interpretation Comments Lymphocytes (test code = Lymphocytes) 15.6 20.0-40.0 [place] [address]-03-08 23:51:00 Test Item Value Reference Range Interpretation Comments Monocytes (test code = Monocytes) 6.9 2.0-12.0 [place] [address]-03-08 23:51:00 Test Item Value Reference Range Interpretation Comments Eosinophils (test code = 2.3 See_Comment [A utomated message] The Eosinophils) system which ge nerated this result tra nsmitted reference range : <=4.0. The reference r jillian was not used to int erpret this result as normal/abnormal . [place] [address]-03-08 23:51:00 Test Item Value Reference Range Interpretation Comments Basophils (test code = 0.7 See_Comment [Aut omated message] The Basophils) system which ge nerated this result tra nsmitted reference range : <=1.0. The reference r jillian was not used to int erpret this result as normal/abnormal . [place] 447393-03-08 23:51:00 Test Item Value Reference Range Interpretation Comments Neutrophils # (test code = Neutrophils 6.1 1.5-8.1 #) [place] [address]-03-08 23:51:00 Test Item Value Reference Range Interpretation Comments Lymphocytes # (test code = Lymphocytes 1.3 1.0-5.5 #) [place] [address]-03-08 23:51:00 Test Item Value Reference Range Interpretation Comments Monocytes # (test code 0.6 See_Comment [Aut omated message] The = Monocytes #) system which generated this result tra nsmitted reference range : <=0.8. The reference r jillian was not used to int erpret this result as normal/abnormal . [facility] HospitalRuimmggPNEBQDRHVK2868-42-65 23:51:00 Test Item Value Reference Range Interpretation Comments Eosinophils # (test code 0.2 See_Comment [A utomated message] The = Eosinophils #) system whic h generated this result tra nsmitted reference range : <=0.5. The reference r jillian was not used to int erpret this result as normal/abnormal . [facility] HospitalLpuuyrdDXPHUODEVU5229-62-46 23:51:00 Test Item Value Reference Range Interpretation Comments Basophils # (test code 0.1 See_Comment [Aut omated message] The = Basophils #) system which generated this result tra nsmitted reference range : <=0.2. The reference r jillian was not used to int erpret this result as normal/abnormal . [facility] HospitalFiuxtjmGZPMPUKOLJ7482-58-46 23:51:00 Test Item Value Reference Range Interpretation Comments Macrocyte (test code = 1+ *ABN*(12/04/22 5:51 Macrocyte) PM) [facility] CenterWuzjvroHVYSNIUWEP1704-89-95 15:58:00 Test Item Value Reference Range Interpretation Comments Hep Bs Ag (test code Negative *NA*(12/04/22 = Hep Bs Ag) 9:58 AM) [facility] CenterLorpifsULWJMZSLPH5050-77-40 15:58:00 Test Item Value Reference Range Interpretation Comments Hep Bs Ag (test code Negative *NA*(12/04/22 = Hep Bs Ag) 9:58 AM) [facility] CenterAavlkykOBQGNRXZPQ6161-61-73 15:58:00 Test Item Value Reference Range Interpretation Comments Hep Bs Ag (test code Negative *NA*(12/04/22 = Hep Bs Ag) 9:58 AM) [facility] CenterFuchlfvSCBKHKPPJD2564-23-92 15:58:00 Test Item Value Reference Range Interpretation Comments Hep Bs Ag (test code Negative *NA*(12/04/22 = Hep Bs Ag) 9:58 AM) [facility] CenterXjkcowtUCVYUYQHJZ7566-49-18 15:58:00 Test Item Value Reference Range Interpretation Comments Hep Bs Ag (test code Negative *NA*(12/04/22 = Hep Bs Ag) 9:58 AM) [facility] CenterEpebrsaMFRMJPYQKI0186-46-44 15:58:00 Test Item Value Reference Range Interpretation Comments Hep Bs Ag (test code Negative *NA*(12/04/22 = Hep Bs Ag) 9:58 AM) [facility] IGQYUWO5250-40-23 15:42:00 Test Item Value Reference Range Interpretation Comments ABO/Rh (test code = ABO/Rh) O POS [facility] [id number] 15:42:00 Test Item Value Reference Range Interpretation Comments Antibody Scrn (test Negative (12/03/22 9:42 code = Antibody Scrn) AM) [facility] [id number] 15:42:00 Test Item Value Reference Range Interpretation Comments ABO/Rh (test code = ABO/Rh) O POS [facility] NTNJUOC5787-37-05 15:42:00 Test Item Value Reference Range Interpretation Comments Antibody Scrn (test Negative (12/03/22 9:42 code = Antibody Scrn) AM) [facility] [id number] 15:42:00 Test Item Value Reference Range Interpretation Comments ABO/Rh (test code = ABO/Rh) O POS [facility] [id number] 15:42:00 Test Item Value Reference Range Interpretation Comments Antibody Scrn (test Negative (12/03/22 9:42 code = Antibody Scrn) AM) [facility]hmzzbvQDXFSC6103-33-43 15:21:12 Test Item Value Reference Range Interpretation [...] vein outflow.Valentin Evans MD On 12/03/2022 09:19:45; [id number] [facility] DistrictIfpeptuHGOZYQ4622-00-29 15:21:12 Test Item Value Reference Range Interpretation [...] vein outflow.Valentin Evans MD On 12/03/2022 09:19:45; [id number] [facility] [id number] 15:21:12 Test Item Value Reference Range Interpretation [...] vein outflow.Valentin Evans MD On 12/03/2022 09:19:45; [id number] [facility] DistrictMkzlywuGFOSKX4363-56-36 14:03:57 Test Item Value Reference Range Interpretation [...] process. Nigel Tsai MD On 12/03/2022 08:03:26; [id number] [facility] DistrictBgfyuvdUAYFES6030-73-43 14:03:57 Test Item Value Reference Range Interpretation [...] process. Nigel Tsai MD On 12/03/2022 08:03:26; [id number] [facility] DistrictYvuicdpSFWPTB0011-87-69 14:03:57 Test Item Value Reference Range Interpretation [...] process. Nigel Tsai MD On 12/03/2022 08:03:26; [id number] [facility] [employer] [id number] 13:03:00 Test Item Value Reference Range Interpretation Comments Total Protein (test code = Total 6.7 6.4-8.4 Protein) [facility] [employer] [id number] 13:03:00 Test Item Value Reference Range Interpretation Comments Albumin Lvl (test code = Albumin Lvl) 3.0 3.5-5.0 [facility]2023-03-07 13:03:00 Test Item Value Reference Range Interpretation Comments ALT (test code = ALT) 10 See_Comment [Auto mated message] The system which [employer] nerated this result transmit cruz reference range : <=65. The reference range was not used to interpr et this result as gee l/abnormal. [facility]2023-03-07 13:03:00 Test Item Value Reference Range Interpretation Comments AST (test code = AST) 5 See_Comment [Auto mated message] The system which [employer] nerated this result transmit cruz reference range : <=37. The reference range was not used to interpr et this result as gee l/abnormal. [facility]2023-03-07 13:03:00 Test Item Value Reference Range Interpretation Comments Alk Phos (test code = Alk Phos) 77 39-136 [facility]2023-03-07 13:03:00 Test Item Value Reference Range Interpretation Comments Bili Total (test code = Bili Total) 0.4 0.2-1.3 [facility]2023-03-07 13:03:00 Test Item Value Reference Range Interpretation Comments B/C Ratio (test code = B/C Ratio) 4 1 6-25 [place] 832383-03-07 13:03:00 Test Item Value Reference Range Interpretation Comments Globulin (test code = Globulin) 3.7 2.7-4.2 [facility]2023-03-07 13:03:00 Test Item Value Reference Range Interpretation Comments A/G Ratio (test code = A/G Ratio) 0.8 1 0.7-1.6 [place] 447393-03-07 13:03:00 Test Item Value Reference Range Interpretation Comments PT (test code = PT) 15.0 s 12.0-14.7 [place] 447393-03-07 13:03:00 Test Item Value Reference Range Interpretation Comments INR (test code = INR) 1.18 1 0.85-1.17 [place] 447393-03-07 13:03:00 Test Item Value Reference Range Interpretation Comments PTT (test code = PTT) 31.8 s 22.9-35.8 [place] 447393-03-07 13:03:00 Test Item Value Reference Range Interpretation Comments Eosinophils (test code = 2.4 See_Comment [A utomated message] The Eosinophils) system which ge nerated this result tra nsmitted reference range : <=4.0. The reference r jillian was not used to int erpret this result as normal/abnormal . [place] 447393-03-07 13:03:00 Test Item Value Reference Range Interpretation Comments Eosinophils # (test code 0.2 See_Comment [A utomated message] The = Eosinophils #) system wh h generated this result tra nsmitted reference range : <=0.5. The reference r jillian was not used to int erpret this result as normal/abnormal . [place] 447393-03-07 13:03:00 Test Item Value Reference Range Interpretation Comments Basophils # (test code 0.1 See_Comment [Aut omated message] The = Basophils #) system which generated this result tra nsmitted reference range : <=0.2. The reference r jillian was not used to int erpret this result as normal/abnormal . [facility]2023-03-07 13:03:00 Test Item Value Reference Range Interpretation Comments Total Protein (test code = Total 6.7 6.4-8.4 Protein) [place] 832383-03-07 13:03:00 Test Item Value Reference Range Interpretation Comments Albumin Lvl (test code = Albumin Lvl) 3.0 3.5-5.0 [place] [address]-03-07 13:03:00 Test Item Value Reference Range Interpretation Comments ALT (test code = ALT) 10 See_Comment [Auto mated message] The system which ge nerated this result transmit cruz reference range : <=65. The reference range was not used to interpr et this result as gee l/abnormal. [facility] [id number] 13:03:00 Test Item Value Reference Range Interpretation Comments AST (test code = AST) 5 See_Comment [Auto mated message] The system which ge nerated this result transmit cruz reference range : <=37. The reference range was not used to interpr et this result as gee l/abnormal. [facility] [id number] 13:03:00 Test Item Value Reference Range Interpretation Comments Alk Phos (test code = Alk Phos) 77 39-136 [facility] [id number] 13:03:00 Test Item Value Reference Range Interpretation Comments Bili Total (test code = Bili Total) 0.4 0.2-1.3 [facility] [id number] 13:03:00 Test Item Value Reference Range Interpretation Comments B/C Ratio (test code = B/C Ratio) 4 1 6-25 [facility] [id number] 13:03:00 Test Item Value Reference Range Interpretation Comments Globulin (test code = Globulin) 3.7 2.7-4.2 [facility] [id number] 13:03:00 Test Item Value Reference Range Interpretation Comments A/G Ratio (test code = A/G Ratio) 0.8 1 0.7-1.6 [place] [address]-03-07 13:03:00 Test Item Value Reference Range Interpretation Comments PT (test code = PT) 15.0 s 12.0-14.7 [place] [address]-03-07 13:03:00 Test Item Value Reference Range Interpretation Comments INR (test code = INR) 1.18 1 0.85-1.17 [facility] Dis[id number] 13:03:00 Test Item Value Reference Range Interpretation Comments PTT (test code = PTT) 31.8 s 22.9-35.8 [place] [address]-03-07 13:03:00 Test Item Value Reference Range Interpretation Comments Eosinophils (test code = 2.4 See_Comment [A utomated message] The Eosinophils) system which ge nerated this result tra nsmitted reference range : <=4.0. The reference r jillian was not used to int erpret this result as normal/abnormal . [place] 447393-03-07 13:03:00 Test Item Value Reference Range Interpretation Comments Eosinophils # (test code 0.2 See_Comment [A utomated message] The = Eosinophils #) system whic h generated this result tra nsmitted reference range : <=0.5. The reference r jillian was not used to int erpret this result as normal/abnormal . [place] [address]-03-07 13:03:00 Test Item Value Reference Range Interpretation Comments Basophils # (test code 0.1 See_Comment [Aut omated message] The = Basophils #) system which generated this result tra nsmitted reference range : <=0.2. The reference r jillian was not used to int erpret this result as normal/abnormal . [place] 832383-03-07 13:03:00 Test Item Value Reference Range Interpretation Comments Total Protein (test code = Total 6.7 6.4-8.4 Protein) [place] [address]-03-07 13:03:00 Test Item Value Reference Range Interpretation Comments Albumin Lvl (test code = Albumin Lvl) 3.0 3.5-5.0 [place] 832383-03-07 13:03:00 Test Item Value Reference Range Interpretation Comments ALT (test code = ALT) 10 See_Comment [Auto mated message] The system which ge nerated this result transmit cruz reference range : <=65. The reference range was not used to interpr et this result as gee l/abnormal. [facility] [id number] 13:03:00 Test Item Value Reference Range Interpretation Comments AST (test code = AST) 5 See_Comment [Auto mated message] The system which ge nerated this result transmit cruz reference range : <=37. The reference range was not used to interpr et this result as gee l/abnormal. [facility]2023-03-07 13:03:00 Test Item Value Reference Range Interpretation Comments Alk Phos (test code = Alk Phos) 77 39-136 [place] 832383-03-07 13:03:00 Test Item Value Reference Range Interpretation Comments Bili Total (test code = Bili Total) 0.4 0.2-1.3 [place] 832383-03-07 13:03:00 Test Item Value Reference Range Interpretation Comments B/C Ratio (test code = B/C Ratio) 4 1 6-25 [place] 832383-03-07 13:03:00 Test Item Value Reference Range Interpretation Comments Globulin (test code = Globulin) 3.7 2.7-4.2 [place] [address]-03-07 13:03:00 Test Item Value Reference Range Interpretation Comments A/G Ratio (test code = A/G Ratio) 0.8 1 0.7-1.6 [place] [address]-03-07 13:03:00 Test Item Value Reference Range Interpretation Comments PT (test code = PT) 15.0 s 12.0-14.7 [place] [address]-03-07 13:03:00 Test Item Value Reference Range Interpretation Comments INR (test code = INR) 1.18 1 0.85-1.17 [place] [address]-03-07 13:03:00 Test Item Value Reference Range Interpretation Comments PTT (test code = PTT) 31.8 s 22.9-35.8 [place] [address]-03-07 13:03:00 Test Item Value Reference Range Interpretation Comments Eosinophils (test code = 2.4 See_Comment [A utomated message] The Eosinophils) system which ge nerated this result tra nsmitted reference range : <=4.0. The reference r jillian was not used to int erpret this result as normal/abnormal . [place] [address]-03-07 13:03:00 Test Item Value Reference Range Interpretation Comments Eosinophils # (test code 0.2 See_Comment [A utomated message] The = Eosinophils #) system whic h generated this result tra nsmitted reference range : <=0.5. The reference r jillian was not used to int erpret this result as normal/abnormal . [facility]QtrsfwuUKXOVRFMHC6608-69-44 13:03:00 Test Item Value Reference Range Interpretation Comments Basophils # (test code 0.1 See_Comment [Aut omated message] The = Basophils #) system which generated this result tra nsmitted reference range : <=0.2. The reference r jillian was not used to int erpret this result as normal/abnormal . [facility] METABOLIC PANEL ([id number])2022-12-02 19:34:37 Test Item Value Reference Range Interpretation Comments NA (test code = 136 mmol/L 135-145 8365747213) K (test code = 4.6 mmol/L 3.5-5.0 8617892127) CL (test code = 101 mmol/L 98-108 3613942994) CO2 TOTAL (test code = 25 mmol/L 23-31 8426653029) AGAP (test code = 10 2-16 6788107201) BUN (test code = 33 mg/dL 7-23 H 5980038427) GLUCOSE (test code = 83 mg/dL 70-110 9330062122) CREATININE (test code = 8.36 mg/dL 0.60-1.25 H 1311653700) TOTAL BILI (test code = 0.6 mg/dL 0.1-1.6 6518864180) CALCIUM (test code = 8.2 mg/dL 8.6-10.6 L 2432161305) T PROTEIN (test code = 7.7 g/dL 6.3-8.2 5942014255) ALBUMIN (test code = 4.3 g/dL 3.5-5.0 1479224215) ALK PHOS (test code = 80 U/L 34-122 0574137074) ALTv (test code = 12 U/L 5-50 1742-6) AST(SGOT) (test code = 16 U/L 13-40 2695853021) eGFR (test code = 6.6 mL/min/1.73m2 3857988141) FILI (test code = FILI) Association of [...] tests). Lab Interpretation Abnormal (test code = 40757-2) [facility] [id number] 19:16:11 Test Item Value Reference Range Interpretation Comments APTT Patient (test 28 See_Comment [Automat ed code = 3173-2) message] The system which generated this result transmitted reference range : 23 - 38 Seconds . The reference range was not used to interpr et this result as normal/abnormal . FILI (test code = FILI) The [facility] patient population mean normal value for aPTT is 30 seconds. Lab Interpretation Normal (test code = 42975-8) [facility] / [id number] 19:14:13 Test Item Value Reference Range Interpretation [...] tions. Lab Interpretation (test Normal code = 51125-9) [facility] WITH [id number] 19:07:14 Test Item Value Reference Range Interpretation [...] RDW-SD (test code = 50.5 fL 38.5-51.6 75555-0) RDW-CV (test code = 13.7 % 12.1-15.4 788-0) PLT (test code = 218 See_Comment [Automated 777-3) message] The sy stem which generated this result transmitted reference range : 150 - 328 10*3/ ?L. The reference r jillian was not used to interpret this result as normal/abnormal . MPV (test code = 10.1 fL 9.8-13.0 16780-8) NRBC/100 WBC (test 0.0 See_Comment [Automat ed code = 9608051964) message] The system which generated this result transmitted reference range : 0.0 - 10.0 /100 WBCs. The refer ence range was not u sed to interpret th is result as normal/abnormal . NRBC x10^3 (test code See_Comment [Auto mated = 9108408820) message] The s ystem which generated this result transmitted reference range : 10*3/?L. The reference range was not used to interpret this result as normal/abnormal . GRAN MAT (NEUT) % 69.1 % (test code = 770-8) IMM GRAN % (test code 0.40 % = 1967520398) LYMPH % (test code = 20.0 % 736-9) MONO % (test code = 7.8 % 5905-5) EOS % (test code = 1.9 % 713-8) BASO % (test code = 0.8 % 706-2) GRAN MAT x10^3(ANC) 5.50 10*3/uL 1.99-6.95 (test code = 3188293455) IMM GRAN x10^3 (test 0.03 10*3/uL 0.00-0.06 code = 1153318423) LYMPH x10^3 (test code 1.59 10*3/uL 1.09-3.23 = 731-0) MONO x10^3 (test code 0.62 10*3/uL 0.36-1.02 = 742-7) EOS x10^3 (test code = 0.15 10*3/uL 0.06-0.53 711-2) BASO x10^3 (test code 0.06 10*3/uL 0.01-0.09 = 704-7) Lab Interpretation Abnormal (test code = 32376-9) [facility] [id number] 19:17:00 Test Item Value Reference Range Interpretation Comments Glucose Lvl (test code = Glucose Lvl) 87 70-99 [facility]2019-11-21 19:17:00 Test Item Value Reference Range Interpretation Comments BUN (test code = BUN) 46 7-22 [facility]2019-11-21 19:17:00 Test Item Value Reference Range Interpretation Comments Creatinine Lvl (test code = Creatinine 11.10 0.50-1.40 Lvl) [facility]2019-11-21 19:17:00 Test Item Value Reference Range Interpretation Comments Sodium Lvl (test code = Sodium Lvl) 137 135-145 [facility]2019-11-21 19:17:00 Test Item Value Reference Range Interpretation Comments Potassium Lvl (test code = Potassium 3.8 3.5-5.1 Lvl) [facility]2019-11-21 19:17:00 Test Item Value Reference Range Interpretation Comments Chloride Lvl (test code = Chloride Lvl) 100 95-109 [facility]2019-11-21 19:17:00 Test Item Value Reference Range Interpretation Comments CO2 (test code = CO2) 27 24-32 [facility]2019-11-21 19:17:00 Test Item Value Reference Range Interpretation Comments Calcium Lvl (test code = Calcium Lvl) 8.9 8.5-10.5 [facility]2019-11-21 19:17:00 Test Item Value Reference Range Interpretation Comments Total Protein (test code = Total 8.4 6.4-8.4 Protein) [facility]2019-11-21 19:17:00 Test Item Value Reference Range Interpretation Comments Albumin Lvl (test code = Albumin Lvl) 3.7 3.5-5.0 [facility]2019-11-21 19:17:00 Test Item Value Reference Range Interpretation Comments ALT (test code = ALT) 15 See_Comment [Auto mated message] The system which ge nerated this result transmit cruz reference range : <=65. The reference range was not used to interpr et this result as gee l/abnormal. [facility]2019-11-21 19:17:00 Test Item Value Reference Range Interpretation Comments AST (test code = AST) 11 See_Comment [Auto mated message] The system which ge nerated this result transmit cruz reference range : <=37. The reference range was not used to interpr et this result as gee l/abnormal. [facility]2019-11-21 19:17:00 Test Item Value Reference Range Interpretation Comments Alk Phos (test code = Alk Phos) 80 39-136 [facility]2019-11-21 19:17:00 Test Item Value Reference Range Interpretation Comments Bili Total (test code = Bili Total) 0.4 0.2-1.3 [facility]2019-11-21 19:17:00 Test Item Value Reference Range Interpretation Comments eGFR (test code = eGFR) 5 [facility]2019-11-21 19:17:00 Test Item Value Reference Range Interpretation Comments AGAP (test code = AGAP) 13.8 10.0-20.0 [facility]2019-11-21 19:17:00 Test Item Value Reference Range Interpretation Comments B/C Ratio (test code = B/C Ratio) 4 1 6-25 [facility]2019-11-21 19:17:00 Test Item Value Reference Range Interpretation Comments Globulin (test code = Globulin) 4.7 2.7-4.2 [facility]2019-11-21 19:17:00 Test Item Value Reference Range Interpretation Comments A/G Ratio (test code = A/G Ratio) 0.8 1 0.7-1.6 [facility] HospitalDldwosqPHTYNCZGLM7520-84-54 19:17:00 Test Item Value Reference Range Interpretation Comments WBC (test code = WBC) 7.9 3.7-10.4 [facility] HospitalGucdtgaBZTNTCCXIW2003-27-62 19:17:00 Test Item Value Reference Range Interpretation Comments RBC (test code = RBC) 3.90 4.70-6.10 [facility] HospitalJcpbbatOOVHMQWLKC0875-01-16 19:17:00 Test Item Value Reference Range Interpretation Comments Hgb (test code = Hgb) 13.3 14.0-18.0 [facility] HospitalLljqyaiAIDIMRUALV3434-49-35 19:17:00 Test Item Value Reference Range Interpretation Comments Hct (test code = Hct) 39.0 42.0-54.0 [facility] HospitalVwpfxdlWIGBGMSXSH8339-25-75 19:17:00 Test Item Value Reference Range Interpretation Comments MCV (test code = MCV) 99.9 80.0-94.0 [facility] HospitalZuqhqphSLFZJLLMII2880-03-19 19:17:00 Test Item Value Reference Range Interpretation Comments MCH (test code = MCH) 34.2 pg 27.0-31.0 [facility] HospitalJowujtsOBRGSYHQRI8309-51-15 19:17:00 Test Item Value Reference Range Interpretation Comments MCHC (test code = MCHC) 34.2 32.0-36.0 [facility] HospitalUoveoqiBYUSFPELFQ2347-92-57 19:17:00 Test Item Value Reference Range Interpretation Comments RDW (test code = RDW) 14.1 11.5-14.5 [facility] HospitalXooyszcYXKNPMSCYG7579-90-32 19:17:00 Test Item Value Reference Range Interpretation Comments Platelet (test code = Platelet) 251 133-450 [facility] HospitalAosmmofNRQMCLJSYF9536-49-64 19:17:00 Test Item Value Reference Range Interpretation Comments MPV (test code = MPV) 8.8 7.4-10.4 [facility] HospitalGnvqmotPUCSLWDXNP0053-63-57 19:17:00 Test Item Value Reference Range Interpretation Comments Segs (test code = Segs) 69.6 45.0-75.0 [facility] HospitalCajnzjuYDOLQBVXCT9399-95-85 19:17:00 Test Item Value Reference Range Interpretation Comments Lymphocytes (test code = Lymphocytes) 21.8 20.0-40.0 [facility] HospitalRhoapyhCTDVUQMOEY0316-32-46 19:17:00 Test Item Value Reference Range Interpretation Comments Monocytes (test code = Monocytes) 6.8 2.0-12.0 [facility] HospitalMurueknCTPEZJKXKZ8584-66-96 19:17:00 Test Item Value Reference Range Interpretation Comments Eosinophils (test code = 1.2 See_Comment [A utomated message] The Eosinophils) system which ge nerated this result tra nsmitted reference range : <=4.0. The reference r jillian was not used to int erpret this result as normal/abnormal . [facility] HospitalGcpyarwFIGHZAVBWF2552-35-05 19:17:00 Test Item Value Reference Range Interpretation Comments Basophils (test code = 0.6 See_Comment [Aut omated message] The Basophils) system which ge nerated this result tra nsmitted reference range : <=1.0. The reference r jillian was not used to int erpret this result as normal/abnormal . [facility] HospitalQaxarfyFWNYGUDBZB0765-41-42 19:17:00 Test Item Value Reference Range Interpretation Comments Neutrophils # (test code = Neutrophils 5.5 1.5-8.1 #) [facility] HospitalQhdvvfrJHCJOFIXTT7197-85-52 19:17:00 Test Item Value Reference Range Interpretation Comments Lymphocytes # (test code = Lymphocytes 1.7 1.0-5.5 #) [facility] HospitalGrhterwXPYFUFPBKP7530-08-90 19:17:00 Test Item Value Reference Range Interpretation Comments Monocytes # (test code 0.5 See_Comment [Aut omated message] The = Monocytes #) system which generated this result tra nsmitted reference range : <=0.8. The reference r jillian was not used to int erpret this result as normal/abnormal . [facility] HospitalFnjvfswWUBLSLLEAD9405-89-66 19:17:00 Test Item Value Reference Range Interpretation Comments Eosinophils # (test code 0.1 See_Comment [A utomated message] The = Eosinophils #) system whic h generated this result tra nsmitted reference range : <=0.5. The reference r jillian was not used to int erpret this result as normal/abnormal . [facility]NvtahygRPHRVOMHTS5936-57-62 19:17:00 Test Item Value Reference Range Interpretation Comments Acetaminoph Lvl (test code (08/19/19 1:17 PM) 10-20 = Acetaminoph Lvl) [place] 998839-11-21 19:17:00 Test Item Value Reference Range Interpretation Comments Ethanol Lvl (test code = Ethanol Lvl) [facility] gt [facility]RdggpumLETSDZSXIG6722-57-05 19:17:00 Test Item Value Reference Range Interpretation Comments Etoh (%) (test code = Etoh (%)) no gt [facility] HospitalRvyvyhrPCAHWURIHP0663-89-53 19:17:00 Test Item Value Reference Range Interpretation Comments Salicylate Lvl (test no gt See_Comment [Autom ated message] The code = Salicylate Lvl) syste m which generated this result tra nsmitted reference range : <=30.0. The reference r jillian was not used to int erpret this result as normal/abnormal . [facility] [id number] 19:17:00 Test Item Value Reference Range Interpretation Comments Glucose Lvl (test code = Glucose Lvl) 87 70-99 [facility]2019-11-21 19:17:00 Test Item Value Reference Range Interpretation Comments BUN (test code = BUN) 46 7-22 [facility]2019-11-21 19:17:00 Test Item Value Reference Range Interpretation Comments Creatinine Lvl (test code = Creatinine 11.10 0.50-1.40 Lvl) [facility]2019-11-21 19:17:00 Test Item Value Reference Range Interpretation Comments Sodium Lvl (test code = Sodium Lvl) 137 135-145 [facility] [id number] 19:17:00 Test Item Value Reference Range Interpretation Comments Potassium Lvl (test code = Potassium 3.8 3.5-5.1 Lvl) [facility]2019-11-21 19:17:00 Test Item Value Reference Range Interpretation Comments Chloride Lvl (test code = Chloride Lvl) 100 95-109 [facility]2019-11-21 19:17:00 Test Item Value Reference Range Interpretation Comments CO2 (test code = CO2) 27 24-32 [facility]2019-11-21 19:17:00 Test Item Value Reference Range Interpretation Comments Calcium Lvl (test code = Calcium Lvl) 8.9 8.5-10.5 [facility]2019-11-21 19:17:00 Test Item Value Reference Range Interpretation Comments Total Protein (test code = Total 8.4 6.4-8.4 Protein) [facility]2019-11-21 19:17:00 Test Item Value Reference Range Interpretation Comments Albumin Lvl (test code = Albumin Lvl) 3.7 3.5-5.0 [facility]2019-11-21 19:17:00 Test Item Value Reference Range Interpretation Comments ALT (test code = ALT) 15 See_Comment [Auto mated message] The system which ge nerated this result transmit cruz reference range : <=65. The reference range was not used to interpr et this result as gee l/abnormal. [facility]2019-11-21 19:17:00 Test Item Value Reference Range Interpretation Comments AST (test code = AST) 11 See_Comment [Auto mated message] The system which ge nerated this result transmit cruz reference range : <=37. The reference range was not used to interpr et this result as gee l/abnormal. [facility]2019-11-21 19:17:00 Test Item Value Reference Range Interpretation Comments Alk Phos (test code = Alk Phos) 80 39-136 [facility]2019-11-21 19:17:00 Test Item Value Reference Range Interpretation Comments Bili Total (test code = Bili Total) 0.4 0.2-1.3 [facility]2019-11-21 19:17:00 Test Item Value Reference Range Interpretation Comments eGFR (test code = eGFR) 5 [facility]2019-11-21 19:17:00 Test Item Value Reference Range Interpretation Comments AGAP (test code = AGAP) 13.8 10.0-20.0 [facility]2019-11-21 19:17:00 Test Item Value Reference Range Interpretation Comments B/C Ratio (test code = B/C Ratio) 4 1 6-25 [facility]2019-11-21 19:17:00 Test Item Value Reference Range Interpretation Comments Globulin (test code = Globulin) 4.7 2.7-4.2 [facility]2019-11-21 19:17:00 Test Item Value Reference Range Interpretation Comments A/G Ratio (test code = A/G Ratio) 0.8 1 0.7-1.6 [facility] HospitalPtzrxeoBYYQONNPKF9661-08-97 19:17:00 Test Item Value Reference Range Interpretation Comments WBC (test code = WBC) 7.9 3.7-10.4 [facility] HospitalOovwpwaSSKKWAEEIJ4807-45-79 19:17:00 Test Item Value Reference Range Interpretation Comments RBC (test code = RBC) 3.90 4.70-6.10 [facility] HospitalTfusnayTUSONRZKBP4250-77-84 19:17:00 Test Item Value Reference Range Interpretation Comments Hgb (test code = Hgb) 13.3 14.0-18.0 [facility] HospitalSeeezzcVEOHSVJSOK7326-09-84 19:17:00 Test Item Value Reference Range Interpretation Comments Hct (test code = Hct) 39.0 42.0-54.0 [facility] HospitalFwerlbhQLPTGTVAWG3745-05-73 19:17:00 Test Item Value Reference Range Interpretation Comments MCV (test code = MCV) 99.9 80.0-94.0 [facility] HospitalJangwwkVOYDFBSVSB9697-59-34 19:17:00 Test Item Value Reference Range Interpretation Comments MCH (test code = MCH) 34.2 pg 27.0-31.0 [facility] HospitalPtkpyfxMBIXIRZXWP3754-53-93 19:17:00 Test Item Value Reference Range Interpretation Comments MCHC (test code = MCHC) 34.2 32.0-36.0 [facility] HospitalExfuiscRXEJQKKRHJ1107-27-69 19:17:00 Test Item Value Reference Range Interpretation Comments RDW (test code = RDW) 14.1 11.5-14.5 [facility] HospitalLtsulqsKPYBQZQAMZ2756-16-39 19:17:00 Test Item Value Reference Range Interpretation Comments Platelet (test code = Platelet) 251 133-450 [facility] HospitalMthkcwlVOQKPJYJUK6113-05-40 19:17:00 Test Item Value Reference Range Interpretation Comments MPV (test code = MPV) 8.8 7.4-10.4 [facility] HospitalPrwhijfLIHAWVIZKW7498-55-41 19:17:00 Test Item Value Reference Range Interpretation Comments Segs (test code = Segs) 69.6 45.0-75.0 [facility] HospitalFmpovejDKRCQYWCVD1614-49-90 19:17:00 Test Item Value Reference Range Interpretation Comments Lymphocytes (test code = Lymphocytes) 21.8 20.0-40.0 [facility] HospitalUgehubmYQXAADBEIH2189-37-26 19:17:00 Test Item Value Reference Range Interpretation Comments Monocytes (test code = Monocytes) 6.8 2.0-12.0 [facility] HospitalCglsymfWXROCIMJDZ6046-63-08 19:17:00 Test Item Value Reference Range Interpretation Comments Eosinophils (test code = 1.2 See_Comment [A utomated message] The Eosinophils) system which ge nerated this result tra nsmitted reference range : <=4.0. The reference r jillian was not used to int erpret this result as normal/abnormal . [facility] HospitalHxlmuafBHAMEMBAKD2174-91-24 19:17:00 Test Item Value Reference Range Interpretation Comments Basophils (test code = 0.6 See_Comment [Aut omated message] The Basophils) system which ge nerated this result tra nsmitted reference range : <=1.0. The reference r jillian was not used to int erpret this result as normal/abnormal . [facility] HospitalOfaeuksLZHGMXSNQZ8439-89-94 19:17:00 Test Item Value Reference Range Interpretation Comments Neutrophils # (test code = Neutrophils 5.5 1.5-8.1 #) [facility] HospitalWoqiamzJUOXXBRLPP4372-04-43 19:17:00 Test Item Value Reference Range Interpretation Comments Lymphocytes # (test code = Lymphocytes 1.7 1.0-5.5 #) [facility] HospitalVjynnteORRDJPACKL4111-06-20 19:17:00 Test Item Value Reference Range Interpretation Comments Monocytes # (test code 0.5 See_Comment [Aut omated message] The = Monocytes #) system which generated this result tra nsmitted reference range : <=0.8. The reference r jillian was not used to int erpret this result as normal/abnormal . [facility]VfeslkcHJITMZUCNG6037-73-73 19:17:00 Test Item Value Reference Range Interpretation Comments Eosinophils # (test code 0.1 See_Comment [A utomated message] The = Eosinophils #) system whic h generated this result tra nsmitted reference range : <=0.5. The reference r jillian was not used to int erpret this result as normal/abnormal . [facility]YXPIVXTW5164-38-84 19:17:00 Test Item Value Reference Range Interpretation Comments Acetaminoph Lvl (test code (08/19/19 1:17 PM) 10-20 = Acetaminoph Lvl) [place] [id number] 19:17:00 Test Item Value Reference Range Interpretation Comments Ethanol Lvl (test code = Ethanol Lvl) no gt [place] [id number] 19:17:00 Test Item Value Reference Range Interpretation Comments Etoh (%) (test code = Etoh (%)) no gt [place] [id number] 19:17:00 Test Item Value Reference Range Interpretation Comments Salicylate Lvl (test no gt See_Comment [Autom ated message] The code = Salicylate Lvl) syste m which generated this result tra nsmitted reference range : <=30.0. The reference r jillian was not used to int erpret this result as normal/abnormal . [facility] [id number] 19:17:00 Test Item Value Reference Range Interpretation Comments Glucose Lvl (test code = Glucose Lvl) 87 70-99 [facility]2019-11-21 19:17:00 Test Item Value Reference Range Interpretation Comments BUN (test code = BUN) 46 7-22 [facility]2019-11-21 19:17:00 Test Item Value Reference Range Interpretation Comments Creatinine Lvl (test code = Creatinine 11.10 0.50-1.40 Lvl) [facility]2019-11-21 19:17:00 Test Item Value Reference Range Interpretation Comments Sodium Lvl (test code = Sodium Lvl) 137 135-145 [facility] [id number] 19:17:00 Test Item Value Reference Range Interpretation Comments Potassium Lvl (test code = Potassium 3.8 3.5-5.1 Lvl) [facility]2019-11-21 19:17:00 Test Item Value Reference Range Interpretation Comments Chloride Lvl (test code = Chloride Lvl) 100 95-109 [facility]2019-11-21 19:17:00 Test Item Value Reference Range Interpretation Comments CO2 (test code = CO2) 27 24-32 [facility]2019-11-21 19:17:00 Test Item Value Reference Range Interpretation Comments Calcium Lvl (test code = Calcium Lvl) 8.9 8.5-10.5 [facility]2019-11-21 19:17:00 Test Item Value Reference Range Interpretation Comments Total Protein (test code = Total 8.4 6.4-8.4 Protein) [facility]2019-11-21 19:17:00 Test Item Value Reference Range Interpretation Comments Albumin Lvl (test code = Albumin Lvl) 3.7 3.5-5.0 [facility]2019-11-21 19:17:00 Test Item Value Reference Range Interpretation Comments ALT (test code = ALT) 15 See_Comment [Auto mated message] The system which ge nerated this result transmit cruz reference range : <=65. The reference range was not used to interpr et this result as gee l/abnormal. [facility]2019-11-21 19:17:00 Test Item Value Reference Range Interpretation Comments AST (test code = AST) 11 See_Comment [Auto mated message] The system which ge nerated this result transmit cruz reference range : <=37. The reference range was not used to interpr et this result as gee l/abnormal. [facility]2019-11-21 19:17:00 Test Item Value Reference Range Interpretation Comments Alk Phos (test code = Alk Phos) 80 39-136 [facility]2019-11-21 19:17:00 Test Item Value Reference Range Interpretation Comments Bili Total (test code = Bili Total) 0.4 0.2-1.3 [facility]2019-11-21 19:17:00 Test Item Value Reference Range Interpretation Comments eGFR (test code = eGFR) 5 [facility]2019-11-21 19:17:00 Test Item Value Reference Range Interpretation Comments AGAP (test code = AGAP) 13.8 10.0-20.0 [facility]2019-11-21 19:17:00 Test Item Value Reference Range Interpretation Comments B/C Ratio (test code = B/C Ratio) 4 1 6-25 [facility]2019-11-21 19:17:00 Test Item Value Reference Range Interpretation Comments Globulin (test code = Globulin) 4.7 2.7-4.2 [facility]2019-11-21 19:17:00 Test Item Value Reference Range Interpretation Comments A/G Ratio (test code = A/G Ratio) 0.8 1 0.7-1.6 [facility] HospitalFdqiwdgQAFHTIOCBO0665-46-39 19:17:00 Test Item Value Reference Range Interpretation Comments WBC (test code = WBC) 7.9 3.7-10.4 [facility] HospitalCtkrcdfYQVNYFAYXC2129-01-89 19:17:00 Test Item Value Reference Range Interpretation Comments RBC (test code = RBC) 3.90 4.70-6.10 [facility] HospitalOqxcwufPCQLLXLFCU0156-28-27 19:17:00 Test Item Value Reference Range Interpretation Comments Hgb (test code = Hgb) 13.3 14.0-18.0 [facility] HospitalQiaqfacMLEVGNYNFD0599-91-27 19:17:00 Test Item Value Reference Range Interpretation Comments Hct (test code = Hct) 39.0 42.0-54.0 [facility] HospitalVwtarboTSMBNDLKOR9846-37-16 19:17:00 Test Item Value Reference Range Interpretation Comments MCV (test code = MCV) 99.9 80.0-94.0 [facility] HospitalDbdvnxnWVKQVDTTEG4497-84-00 19:17:00 Test Item Value Reference Range Interpretation Comments MCH (test code = MCH) 34.2 pg 27.0-31.0 [facility] HospitalAlwewurPIFKDMTZXR9609-14-78 19:17:00 Test Item Value Reference Range Interpretation Comments MCHC (test code = MCHC) 34.2 32.0-36.0 [facility] HospitalIvcmulbMLEMGIEWDP4986-32-92 19:17:00 Test Item Value Reference Range Interpretation Comments RDW (test code = RDW) 14.1 11.5-14.5 [facility] HospitalXxhzjxfCHALMLXANK7386-06-22 19:17:00 Test Item Value Reference Range Interpretation Comments Platelet (test code = Platelet) 251 133-450 [facility] HospitalFeeiosqEYCITFTAQM9903-35-95 19:17:00 Test Item Value Reference Range Interpretation Comments MPV (test code = MPV) 8.8 7.4-10.4 [facility] HospitalXacekggJMOJXNRYPK4380-99-65 19:17:00 Test Item Value Reference Range Interpretation Comments Segs (test code = Segs) 69.6 45.0-75.0 [facility] HospitalZwsvfwkUWDCXOCWGI3680-82-56 19:17:00 Test Item Value Reference Range Interpretation Comments Lymphocytes (test code = Lymphocytes) 21.8 20.0-40.0 [facility] HospitalZzflyxdRDXJUGXWMD6438-71-69 19:17:00 Test Item Value Reference Range Interpretation Comments Monocytes (test code = Monocytes) 6.8 2.0-12.0 [facility] HospitalBoarxwtOSAPSJYTOT0273-60-98 19:17:00 Test Item Value Reference Range Interpretation Comments Eosinophils (test code = 1.2 See_Comment [A utomated message] The Eosinophils) system which ge nerated this result tra nsmitted reference range : <=4.0. The reference r jillian was not used to int erpret this result as normal/abnormal . [facility] HospitalWdohxhtFAAULZGKMN2497-54-82 19:17:00 Test Item Value Reference Range Interpretation Comments Basophils (test code = 0.6 See_Comment [Aut omated message] The Basophils) system which ge nerated this result tra nsmitted reference range : <=1.0. The reference r jillian was not used to int erpret this result as normal/abnormal . [facility] HospitalHsheyelQKGBDPSSCK3407-70-90 19:17:00 Test Item Value Reference Range Interpretation Comments Neutrophils # (test code = Neutrophils 5.5 1.5-8.1 #) [facility] HospitalEdijdllLALGYKBRTA4084-87-01 19:17:00 Test Item Value Reference Range Interpretation Comments Lymphocytes # (test code = Lymphocytes 1.7 1.0-5.5 #) [facility] HospitalYtstbukCXDPDDKVYR9263-72-66 19:17:00 Test Item Value Reference Range Interpretation Comments Monocytes # (test code 0.5 See_Comment [Aut omated message] The = Monocytes #) system which generated this result tra nsmitted reference range : <=0.8. The reference r jillian was not used to int erpret this result as normal/abnormal . [facility] DistrictJhpkvpvCACIEDRIJJ5801-89-14 19:17:00 Test Item Value Reference Range Interpretation Comments Eosinophils # (test code 0.1 See_Comment [A utomated message] The = Eosinophils #) system whic h generated this result tra nsmitted reference range : <=0.5. The reference r jillian was not used to int erpret this result as normal/abnormal . [facility] DistrictFicyhjfCYMFCVVRCW9200-77-14 19:17:00 Test Item Value Reference Range Interpretation Comments Acetaminoph Lvl (test code (08/19/19 1:17 PM) 10-20 = Acetaminoph Lvl) [facility] DistrictZnsecmiUPRPPIXLFV3201-24-28 19:17:00 Test Item Value Reference Range Interpretation Comments Ethanol Lvl (test code = Ethanol Lvl) no gt [facility]NovmlamOYJLGCFLYB3271-06-55 19:17:00 Test Item Value Reference Range Interpretation Comments Etoh (%) (test code = Etoh (%)) no gt [facility] DistrictGozyqivMGUOVOOYKY6700-97-28 19:17:00 Test Item Value Reference Range Interpretation Comments Salicylate Lvl (test no gt See_Comment [Autom ated message] The code = Salicylate Lvl) syste m which generated this result tra nsmitted reference range : <=30.0. The reference r jillian was not used to int erpret this result as normal/abnormal . [facility] DistrictBRAIN NATRIURETIC UAMVHTP6868-30-07 08:55:00 Test Item Value Reference Range Interpretation Comments proBNP (test code = PBNP) 750 pg/mL 0-125 H COMPREHENSIVE METABOLIC [id number] 08:55:00 Test Item Value Reference Range Interpretation [...] (test code = 31A) 15 IU/L <=78 SHQVOVRFB7365-33-87 08:55:00 Test Item Value Reference Range Interpretation Comments MAGNESIUM (test code = 48A) 2.6 mg/dL 1.8-2.4 H PHOSPHORUS (P04)2019-08-11 08:55:00 Test Item Value Reference Range Interpretation Comments PHOSPHORUS (test code = 43D) 7.8 mg/dL 2.7-4.6 H TROPONIN [id number] 08:50:00 Test Item Value Reference Range Interpretation Comments TROPONIN I (test code = A84) <0.015 ng/mL 0.000-0.045 PRO TIME AND [id number] 08:43:00 Test Item Value Reference Range Interpretation [...] Order Code is ANTI-XA CT HEAD W/O [id number] 08:36:37CT brain without contrastLocation code: [id number] HISTORY: Dizziness COMPARISON: 03/03/18TECHNIQUE:Routine unenhanced axial imaging [...] = RBCMOR) NORMAL XR CHEST 1 VIEW [id number] 08:28:57Portable AP chest, 1 viewLocation Code: [id number] HISTORY: DizzinessCOMPARISON: 03/03/18COMMENT: The lungs are clear and well inflated. The costophrenic angles are sharp. Thecardiomediastinal silhouette is unremarkable. The bones are intact.IMPRESSION: Stable chest with no acute sifyjfrecyeLVNRIIIHDNGL2644-31-99 13:08:00 Test Item Value Reference Range Interpretation Comments AGAP (test code = AGAP) 19.3 10.0-20.0 [facility]GyphdvbYUJEJFNVDBQP9858-96-33 13:08:00 Test Item Value Reference Range Interpretation Comments eGFR (test code = eGFR) 7 [facility] HospitalUrfezjpWJPCPUXFULSL4065-94-30 13:08:00 Test Item Value Reference Range Interpretation Comments Calcium Lvl (test code = Calcium Lvl) 8.4 8.5-10.5 [facility] HospitalSsogyytYNKXRPDUGADC5523-89-26 13:08:00 Test Item Value Reference Range Interpretation Comments CO2 (test code = CO2) 24 24-32 [facility] HospitalKxhfwqxISBUNUVQZSUU7344-51-07 13:08:00 Test Item Value Reference Range Interpretation Comments Chloride Lvl (test code = Chloride Lvl) 97 95-109 [facility] HospitalGlswtusHOOCWTPPBQCB0094-71-68 13:08:00 Test Item Value Reference Range Interpretation Comments Potassium Lvl (test code = Potassium 5.3 3.5-5.1 Lvl) [facility] HospitalEstqgbjTTEJEWYHEPXM8965-73-49 13:08:00 Test Item Value Reference Range Interpretation Comments BUN (test code = BUN) 39 7-22 [facility] HospitalDehwuarKOKRHYYTRZSR6488-08-00 13:08:00 Test Item Value Reference Range Interpretation Comments Creatinine Lvl (test code = Creatinine 7.58 0.50-1.40 Lvl) [facility] HospitalKkxnxveXERFVUKXLRGP8447-73-04 13:08:00 Test Item Value Reference Range Interpretation Comments Sodium Lvl (test code = Sodium Lvl) 135 135-145 [facility] HospitalSuyslqbMEAECVQTLYYB0260-51-80 13:08:00 Test Item Value Reference Range Interpretation Comments Glucose Lvl (test code = Glucose Lvl) 87 70-99 [facility] HospitalVjytoqyGOLOVEQAKB0426-02-61 13:08:00 Test Item Value Reference Range Interpretation Comments RDW (test code = RDW) 16.5 11.5-14.5 [facility] HospitalHasoqqbLCYUZMLHZN0986-17-42 13:08:00 Test Item Value Reference Range Interpretation Comments MCHC (test code = MCHC) 33.7 32.0-36.0 [facility] HospitalVfzqkruEGQTGIWKZQ9558-07-11 13:08:00 Test Item Value Reference Range Interpretation Comments MCH (test code = MCH) 33.7 pg 27.0-31.0 [facility] HospitalNgeszazRFXHYZIUYT9893-43-76 13:08:00 Test Item Value Reference Range Interpretation Comments MCV (test code = MCV) 100.0 80.0-94.0 [facility] HospitalTyhskdzHWPKLMVZOC2301-84-13 13:08:00 Test Item Value Reference Range Interpretation Comments Hct (test code = Hct) 39.7 42.0-54.0 [facility] HospitalQbsoxccWVFNMYWMWY2497-27-39 13:08:00 Test Item Value Reference Range Interpretation Comments Hgb (test code = Hgb) 13.4 14.0-18.0 [facility] HospitalClqedgkNDMMPRGYTM3372-63-01 13:08:00 Test Item Value Reference Range Interpretation Comments RBC (test code = RBC) 3.97 4.70-6.10 [facility] HospitalYytlmwvKJTVVSATQJ4778-84-93 13:08:00 Test Item Value Reference Range Interpretation Comments WBC (test code = WBC) 8.8 3.7-10.4 [facility] HospitalBiiayscJWKPNRIPUV9596-56-01 13:08:00 Test Item Value Reference Range Interpretation Comments MPV (test code = MPV) 7.7 7.4-10.4 [facility] HospitalPnarepjLUKHIHGFCA1110-00-96 13:08:00 Test Item Value Reference Range Interpretation Comments Platelet (test code = Platelet) 324 133-450 [facility] HospitalLldfapwHPCNMRGOVJAL8250-59-36 13:08:00 Test Item Value Reference Range Interpretation Comments AGAP (test code = AGAP) 19.3 10.0-20.0 [facility] HospitalGszpiswTJQWLWCGSLSK2110-20-44 13:08:00 Test Item Value Reference Range Interpretation Comments eGFR (test code = eGFR) 7 [facility] HospitalZhdkyaiPQFGSLCXGYXP3967-63-08 13:08:00 Test Item Value Reference Range Interpretation Comments Calcium Lvl (test code = Calcium Lvl) 8.4 8.5-10.5 [facility] HospitalRiariwkBVBVFAKQSEWZ2727-56-74 13:08:00 Test Item Value Reference Range Interpretation Comments CO2 (test code = CO2) 24 24-32 [facility] HospitalXocvapbHPZIHGYNQFWC9873-02-11 13:08:00 Test Item Value Reference Range Interpretation Comments Chloride Lvl (test code = Chloride Lvl) 97 95-109 [facility] HospitalPoeixzsUBYBTKAXQGFM7960-35-85 13:08:00 Test Item Value Reference Range Interpretation Comments Potassium Lvl (test code = Potassium 5.3 3.5-5.1 Lvl) [facility] HospitalKpojrqlFNGYMHSQJCCA6439-84-01 13:08:00 Test Item Value Reference Range Interpretation Comments BUN (test code = BUN) 39 7-22 [facility] HospitalAbmkyygMHJKBBEDNMYQ0134-03-38 13:08:00 Test Item Value Reference Range Interpretation Comments Creatinine Lvl (test code = Creatinine 7.58 0.50-1.40 Lvl) [facility] HospitalOhtcwffGLTGGVWISVHD2512-47-30 13:08:00 Test Item Value Reference Range Interpretation Comments Sodium Lvl (test code = Sodium Lvl) 135 135-145 [facility] HospitalTnuimgyKFYODTQVGFXC1621-55-68 13:08:00 Test Item Value Reference Range Interpretation Comments Glucose Lvl (test code = Glucose Lvl) 87 70-99 [facility] HospitalRreufwlIJNKCGZDFK1682-81-79 13:08:00 Test Item Value Reference Range Interpretation Comments RDW (test code = RDW) 16.5 11.5-14.5 [facility] HospitalAzkfmwcJJEMHXMQIT7565-26-56 13:08:00 Test Item Value Reference Range Interpretation Comments MCHC (test code = MCHC) 33.7 32.0-36.0 [facility] HospitalCzqwsylJWLTCFIJQK8118-45-13 13:08:00 Test Item Value Reference Range Interpretation Comments MCH (test code = MCH) 33.7 pg 27.0-31.0 [facility] HospitalNtahnizPFEORWSIPZ4202-14-33 13:08:00 Test Item Value Reference Range Interpretation Comments MCV (test code = MCV) 100.0 80.0-94.0 [facility] HospitalOodzntjUVGJKWRPGC1368-50-11 13:08:00 Test Item Value Reference Range Interpretation Comments Hct (test code = Hct) 39.7 42.0-54.0 [facility] HospitalOsyjdykQXEDSBOLXK5805-08-75 13:08:00 Test Item Value Reference Range Interpretation Comments Hgb (test code = Hgb) 13.4 14.0-18.0 [facility] HospitalJgtdtniWQZOJEANUX1444-71-12 13:08:00 Test Item Value Reference Range Interpretation Comments RBC (test code = RBC) 3.97 4.70-6.10 [facility] HospitalOboinjaVBNLDABZLW9777-23-06 13:08:00 Test Item Value Reference Range Interpretation Comments WBC (test code = WBC) 8.8 3.7-10.4 [facility] HospitalSvhgybwXEPBKBZDIS2858-84-57 13:08:00 Test Item Value Reference Range Interpretation Comments MPV (test code = MPV) 7.7 7.4-10.4 [facility] HospitalUwymwntHALXQLWRRN4834-48-33 13:08:00 Test Item Value Reference Range Interpretation Comments Platelet (test code = Platelet) 324 133-450 [facility] HospitalSuobuyvSYBEBYNPYTHF7343-76-73 13:08:00 Test Item Value Reference Range Interpretation Comments AGAP (test code = AGAP) 19.3 10.0-20.0 [facility] HospitalMnnrilvWHRGQNEGERID4833-93-82 13:08:00 Test Item Value Reference Range Interpretation Comments eGFR (test code = eGFR) 7 [facility] HospitalHycpapaCJMCMZDWOIJV7560-14-43 13:08:00 Test Item Value Reference Range Interpretation Comments Calcium Lvl (test code = Calcium Lvl) 8.4 8.5-10.5 [facility] HospitalVgtozipPSIERLYODYMH9028-48-27 13:08:00 Test Item Value Reference Range Interpretation Comments CO2 (test code = CO2) 24 24-32 [facility] HospitalVnwpglbPWATPWUBIFPS0646-32-46 13:08:00 Test Item Value Reference Range Interpretation Comments Chloride Lvl (test code = Chloride Lvl) 97 95-109 [facility] HospitalYshiexxBLVZQEBVNKJA3497-49-17 13:08:00 Test Item Value Reference Range Interpretation Comments Potassium Lvl (test code = Potassium 5.3 3.5-5.1 Lvl) [facility] HospitalQsjznteSOUUAYYURAOE5270-19-28 13:08:00 Test Item Value Reference Range Interpretation Comments BUN (test code = BUN) 39 7-22 [facility] HospitalQxfndgkFDPAYKVRUSUL2450-48-24 13:08:00 Test Item Value Reference Range Interpretation Comments Creatinine Lvl (test code = Creatinine 7.58 0.50-1.40 Lvl) [facility] HospitalKjmvhvzHRICCAGZTJXA0208-64-44 13:08:00 Test Item Value Reference Range Interpretation Comments Sodium Lvl (test code = Sodium Lvl) 135 135-145 [facility] HospitalYmccaljSJAYGMNQRDFM8556-26-97 13:08:00 Test Item Value Reference Range Interpretation Comments Glucose Lvl (test code = Glucose Lvl) 87 70-99 [facility] HospitalRhykwicHFWHARXCUC9542-49-24 13:08:00 Test Item Value Reference Range Interpretation Comments RDW (test code = RDW) 16.5 11.5-14.5 [facility] HospitalGeheyakOYYQOZQCGI0709-52-69 13:08:00 Test Item Value Reference Range Interpretation Comments MCHC (test code = MCHC) 33.7 32.0-36.0 [facility] HospitalAiplwwjJJUKLKUFVC3787-16-82 13:08:00 Test Item Value Reference Range Interpretation Comments MCH (test code = MCH) 33.7 pg 27.0-31.0 [facility] HospitalGuyyfbfCUCPMAOTSL4832-76-06 13:08:00 Test Item Value Reference Range Interpretation Comments MCV (test code = MCV) 100.0 80.0-94.0 [facility] HospitalSfhkwqiUPZFGNVJAY1660-72-74 13:08:00 Test Item Value Reference Range Interpretation Comments Hct (test code = Hct) 39.7 42.0-54.0 [facility] HospitalMxxqblqOGNPLVOMRS9628-28-74 13:08:00 Test Item Value Reference Range Interpretation Comments Hgb (test code = Hgb) 13.4 14.0-18.0 [facility] HospitalHfcznakYNHFQKWTLL3670-23-01 13:08:00 Test Item Value Reference Range Interpretation Comments RBC (test code = RBC) 3.97 4.70-6.10 [facility] HospitalQuhqdyfRIKDOIPKSG7512-00-19 13:08:00 Test Item Value Reference Range Interpretation Comments WBC (test code = WBC) 8.8 3.7-10.4 [facility] HospitalDssrefzAXYNGOTYWY7787-55-11 13:08:00 Test Item Value Reference Range Interpretation Comments MPV (test code = MPV) 7.7 7.4-10.4 [facility] HospitalBnrohwaFJOZYHZYOG8937-80-82 13:08:00 Test Item Value Reference Range Interpretation Comments Platelet (test code = Platelet) 324 133-450 [facility] DistrictCARDI TZNEKFE8908-49-10 18:27:00 Test Item Value Reference Range Interpretation Comments Troponin-I (test code no gt See_Comment [Auto mated message] The = Troponin-I) system which g enerated this result transmit cruz reference range : <=0.40. The reference r jillian was not used to interpr et this result as gee l/abnormal. [facility] HospitalCivlnpnKQEPBDWNICQI6918-73-52 18:27:00 Test Item Value Reference Range Interpretation Comments AGAP (test code = AGAP) 17.2 10.0-20.0 [facility] HospitalHpkxfjyJIYJGNSAXTMR3890-22-28 18:27:00 Test Item Value Reference Range Interpretation Comments eGFR (test code = eGFR) 6 [facility] HospitalEtvbdrvSBWTKAKVAIEK1202-51-66 18:27:00 Test Item Value Reference Range Interpretation Comments Creatinine Lvl (test code = Creatinine 8.49 0.50-1.40 Lvl) [facility] HospitalLouuufbDRBOTQSXOUVV6095-06-37 18:27:00 Test Item Value Reference Range Interpretation Comments Sodium Lvl (test code = Sodium Lvl) 137 135-145 [facility] HospitalBkdjwllDBBEZCAOLHQW8524-93-91 18:27:00 Test Item Value Reference Range Interpretation Comments Potassium Lvl (test code = Potassium 4.2 3.5-5.1 Lvl) [facility] HospitalIyjkbuyLSHVPZDXPIEQ7816-14-23 18:27:00 Test Item Value Reference Range Interpretation Comments BUN (test code = BUN) 32 7-22 [facility] HospitalCrqqetsKPVFUQTZRSAK8258-20-51 18:27:00 Test Item Value Reference Range Interpretation Comments Glucose Lvl (test code = Glucose Lvl) 75 70-99 [facility] HospitalTdbujfyEVXAMTTTFUWD8659-15-78 18:27:00 Test Item Value Reference Range Interpretation Comments Calcium Lvl (test code = Calcium Lvl) 7.9 8.5-10.5 [facility] HospitalWlbsbuaVQBPFLWMPJSL0484-03-48 18:27:00 Test Item Value Reference Range Interpretation Comments CO2 (test code = CO2) 14 24-32 [facility] HospitalXxumszmFIBETOIODVHH6878-40-59 18:27:00 Test Item Value Reference Range Interpretation Comments Chloride Lvl (test code = Chloride Lvl) 110 95-109 [facility] HospitalNtbcycnDRUOGMGICI3396-07-30 18:27:00 Test Item Value Reference Range Interpretation Comments Hgb (test code = Hgb) 13.8 14.0-18.0 [facility] HospitalAnjkugwLUWKPUXCDS6000-03-08 18:27:00 Test Item Value Reference Range Interpretation Comments Hct (test code = Hct) 40.9 42.0-54.0 [facility] HospitalVfmfzfsTASPXPTIOT3675-21-18 18:27:00 Test Item Value Reference Range Interpretation Comments RBC (test code = RBC) 4.29 4.70-6.10 [facility] HospitalOahueewOCCCNFOMKC0891-29-64 18:27:00 Test Item Value Reference Range Interpretation Comments MCV (test code = MCV) 95.4 80.0-94.0 [facility] HospitalMdoaiofBYHHUPWMPO2849-30-29 18:27:00 Test Item Value Reference Range Interpretation Comments MCH (test code = MCH) 32.1 pg 27.0-31.0 [facility] HospitalHgmvaxaZUCEDFYTMM9530-77-18 18:27:00 Test Item Value Reference Range Interpretation Comments WBC (test code = WBC) 12.2 3.7-10.4 [facility] HospitalYfugcpbXHOLSRNPIM7326-10-36 18:27:00 Test Item Value Reference Range Interpretation Comments MPV (test code = MPV) 8.8 7.4-10.4 [facility] HospitalVjkabpxZJOBVWGFPY1078-00-09 18:27:00 Test Item Value Reference Range Interpretation Comments RDW (test code = RDW) 14.5 11.5-14.5 [facility]DnyiweoJVALCINSVR1624-75-52 18:27:00 Test Item Value Reference Range Interpretation Comments Platelet (test code = Platelet) 196 133-450 [facility] HospitalGyaaeasHDLSXLWIWM7424-00-84 18:27:00 Test Item Value Reference Range Interpretation Comments MCHC (test code = MCHC) 33.6 32.0-36.0 [facility] HospitalUnkccriDEYBVTRQSQ3281-70-33 18:27:00 Test Item Value Reference Range Interpretation Comments Lymphocytes # (test code = Lymphocytes 1.6 1.0-5.5 #) [facility] HospitalFezwfgnDTJUVLAKIN0927-24-74 18:27:00 Test Item Value Reference Range Interpretation Comments Neutrophils # (test code = Neutrophils 9.6 1.5-8.1 #) [facility] HospitalNmlatutSXWVAMMBSQ9342-51-70 18:27:00 Test Item Value Reference Range Interpretation Comments Basophils # (test code 0.1 See_Comment [Aut omated message] The = Basophils #) system which generated this result tra nsmitted reference range : <=0.2. The reference r jillian was not used to int erpret this result as normal/abnormal . [facility] HospitalIyozwfbAITARWKKIH0691-03-51 18:27:00 Test Item Value Reference Range Interpretation Comments Eosinophils # (test code 0.1 See_Comment [A utomated message] The = Eosinophils #) system whic h generated this result tra nsmitted reference range : <=0.5. The reference r jillian was not used to int erpret this result as normal/abnormal . [facility] HospitalRvcbindKJKETMCSZY4484-21-57 18:27:00 Test Item Value Reference Range Interpretation Comments Monocytes # (test code 0.9 See_Comment [Aut omated message] The = Monocytes #) system which generated this result tra nsmitted reference range : <=0.8. The reference r jillian was not used to int erpret this result as normal/abnormal . [facility] HospitalVzqykdsOJJBYFYPAT0827-18-68 18:27:00 Test Item Value Reference Range Interpretation Comments Basophils (test code = 0.5 See_Comment [Aut omated message] The Basophils) system which ge nerated this result tra nsmitted reference range : <=1.0. The reference r jillian was not used to int erpret this result as normal/abnormal . [facility] HospitalUulikzoADQKQRNIMY3908-46-84 18:27:00 Test Item Value Reference Range Interpretation Comments Eosinophils (test code = 1.1 See_Comment [A utomated message] The Eosinophils) system which ge nerated this result tra nsmitted reference range : <=4.0. The reference r jillian was not used to int erpret this result as normal/abnormal . [facility] HospitalPfytscjYOENRELFXM8029-41-84 18:27:00 Test Item Value Reference Range Interpretation Comments Monocytes (test code = Monocytes) 7.2 2.0-12.0 [facility] 18:27:00 Test Item Value Reference Range Interpretation Comments Lymphocytes (test code = Lymphocytes) 12.8 20.0-40.0 [facility]JxrbfdaBWOKWGDIQJ3909-98-60 18:27:00 Test Item Value Reference Range Interpretation Comments Segs (test code = Segs) 78.4 45.0-75.0 [facility] [id number] 18:27:00 Test Item Value Reference Range Interpretation Comments Troponin-I (test code no gt See_Comment [Auto mated message] The = Troponin-I) system which g enerated this result transmit cruz reference range : <=0.40. The reference r jillian was not used to interpr et this result as gee l/abnormal. [facility] HospitalVmstvhnTHNVMOWRVVYC1380-24-57 18:27:00 Test Item Value Reference Range Interpretation Comments AGAP (test code = AGAP) 17.2 10.0-20.0 [facility][id number] 18:27:00 Test Item Value Reference Range Interpretation Comments eGFR (test code = eGFR) 6 [facility] HospitalEijzxuaPKYXDVDJQOHK9140-81-49 18:27:00 Test Item Value Reference Range Interpretation Comments Creatinine Lvl (test code = Creatinine 8.49 0.50-1.40 Lvl) [facility]UilrkndGEXVRRGKQOCW9449-07-98 18:27:00 Test Item Value Reference Range Interpretation Comments Sodium Lvl (test code = Sodium Lvl) 137 135-145 [facility] HospitalKnstwlhCTDQBHFXQUZA9531-85-89 18:27:00 Test Item Value Reference Range Interpretation Comments Potassium Lvl (test code = Potassium 4.2 3.5-5.1 Lvl) [facility] HospitalMvhijazILXBOHDHZAYT2661-83-24 18:27:00 Test Item Value Reference Range Interpretation Comments BUN (test code = BUN) 32 7-22 [facility] HospitalMkksqgbYWNAPBANJOPU7557-94-39 18:27:00 Test Item Value Reference Range Interpretation Comments Glucose Lvl (test code = Glucose Lvl) 75 70-99 [facility] HospitalVjbblglUDPYWDZGKBNM2685-33-57 18:27:00 Test Item Value Reference Range Interpretation Comments Calcium Lvl (test code = Calcium Lvl) 7.9 8.5-10.5 [facility] HospitalFuunfojCOUOKDZLBZQZ3605-38-43 18:27:00 Test Item Value Reference Range Interpretation Comments CO2 (test code = CO2) 14 24-32 [facility] HospitalDxcbgbsZVMKJEFLKFYG0988-16-98 18:27:00 Test Item Value Reference Range Interpretation Comments Chloride Lvl (test code = Chloride Lvl) 110 95-109 [facility] HospitalDlaioywFSVVCDNFZJ3149-75-08 18:27:00 Test Item Value Reference Range Interpretation Comments Hgb (test code = Hgb) 13.8 14.0-18.0 [facility] HospitalOvkaplbGLPBYYYPLF5869-08-24 18:27:00 Test Item Value Reference Range Interpretation Comments Hct (test code = Hct) 40.9 42.0-54.0 [facility] HospitalHjwptjcYWBDQUGCNE1422-95-55 18:27:00 Test Item Value Reference Range Interpretation Comments RBC (test code = RBC) 4.29 4.70-6.10 [facility] HospitalZdntamtDRRSFETNSY0857-79-26 18:27:00 Test Item Value Reference Range Interpretation Comments MCV (test code = MCV) 95.4 80.0-94.0 [facility] HospitalDcemyzbRWVCXKMIXA3014-86-62 18:27:00 Test Item Value Reference Range Interpretation Comments MCH (test code = MCH) 32.1 pg 27.0-31.0 [facility] HospitalNduyglcLYKTQBPMNT5251-31-51 18:27:00 Test Item Value Reference Range Interpretation Comments WBC (test code = WBC) 12.2 3.7-10.4 [facility] HospitalPalxjarXHLBEWZHCU4487-83-23 18:27:00 Test Item Value Reference Range Interpretation Comments MPV (test code = MPV) 8.8 7.4-10.4 [facility] HospitalZytzxnaKCBUEAQORK8021-42-03 18:27:00 Test Item Value Reference Range Interpretation Comments RDW (test code = RDW) 14.5 11.5-14.5 [facility] HospitalLqvddgbYZIEHVQVFP7563-98-05 18:27:00 Test Item Value Reference Range Interpretation Comments Platelet (test code = Platelet) 196 133-450 [facility] HospitalAflnungVMGOPVPLWT9391-57-97 18:27:00 Test Item Value Reference Range Interpretation Comments MCHC (test code = MCHC) 33.6 32.0-36.0 [facility] HospitalKbyuvwqTSOGUEORWK4157-91-26 18:27:00 Test Item Value Reference Range Interpretation Comments Lymphocytes # (test code = Lymphocytes 1.6 1.0-5.5 #) [facility] HospitalMhhlwboAFJRIZBVJA4930-29-53 18:27:00 Test Item Value Reference Range Interpretation Comments Neutrophils # (test code = Neutrophils 9.6 1.5-8.1 #) [facility] HospitalUhxniefCWCFAJDXKC3996-93-06 18:27:00 Test Item Value Reference Range Interpretation Comments Basophils # (test code 0.1 See_Comment [Aut omated message] The = Basophils #) system which generated this result tra nsmitted reference range : <=0.2. The reference r jillian was not used to int erpret this result as normal/abnormal . [facility] HospitalJeplokiDALVKPLQFO3211-72-40 18:27:00 Test Item Value Reference Range Interpretation Comments Eosinophils # (test code 0.1 See_Comment [A utomated message] The = Eosinophils #) system whic h generated this result tra nsmitted reference range : <=0.5. The reference r jillian was not used to int erpret this result as normal/abnormal . [facility] HospitalVqolkqpWAYJTQJSGO7164-32-57 18:27:00 Test Item Value Reference Range Interpretation Comments Monocytes # (test code 0.9 See_Comment [Aut omated message] The = Monocytes #) system which generated this result tra nsmitted reference range : <=0.8. The reference r jillian was not used to int erpret this result as normal/abnormal . [facility] HospitalPwuitcfQOYDGDPDVG6580-05-66 18:27:00 Test Item Value Reference Range Interpretation Comments Basophils (test code = 0.5 See_Comment [Aut omated message] The Basophils) system which ge nerated this result tra nsmitted reference range : <=1.0. The reference r jillian was not used to int erpret this result as normal/abnormal . [facility] HospitalTcywnxgQUKRMUFDMN5167-56-95 18:27:00 Test Item Value Reference Range Interpretation Comments Eosinophils (test code = 1.1 See_Comment [A utomated message] The Eosinophils) system which ge nerated this result tra nsmitted reference range : <=4.0. The reference r jillian was not used to int erpret this result as normal/abnormal . [facility] HospitalHdngrhoTZTBWMSCCD9351-79-58 18:27:00 Test Item Value Reference Range Interpretation Comments Monocytes (test code = Monocytes) 7.2 2.0-12.0 [facility]CzuufpqBQBBGZNGCW4821-37-55 18:27:00 Test Item Value Reference Range Interpretation Comments Lymphocytes (test code = Lymphocytes) 12.8 20.0-40.0 [facility]RnuophxSGRLPPXICP9935-46-45 18:27:00 Test Item Value Reference Range Interpretation Comments Segs (test code = Segs) 78.4 45.0-75.0 [facility] ACXHCPK5971-00-10 18:27:00 Test Item Value Reference Range Interpretation Comments Troponin-I (test code no gt See_Comment [Auto mated message] The = Troponin-I) system which g enerated this result transmit cruz reference range : <=0.40. The reference r jillian was not used to interpr et this result as gee l/abnormal. [facility] HospitalGdixptyLMEOWQXMQWBU8515-71-19 18:27:00 Test Item Value Reference Range Interpretation Comments AGAP (test code = AGAP) 17.2 10.0-20.0 [facility] HospitalQflhoquSTOFIIAJHNUX7343-87-25 18:27:00 Test Item Value Reference Range Interpretation Comments eGFR (test code = eGFR) 6 [facility] HospitalMwncycySGXPPCKOTKJD0855-68-73 18:27:00 Test Item Value Reference Range Interpretation Comments Creatinine Lvl (test code = Creatinine 8.49 0.50-1.40 Lvl) [facility] HospitalPdzhbpfAVWGRLOKVQMA8723-20-51 18:27:00 Test Item Value Reference Range Interpretation Comments Sodium Lvl (test code = Sodium Lvl) 137 135-145 [facility] HospitalBxuevgoZPCMBWPYUCGF2978-68-20 18:27:00 Test Item Value Reference Range Interpretation Comments Potassium Lvl (test code = Potassium 4.2 3.5-5.1 Lvl) [facility] HospitalWgiypptZCFVUJCZINGB7825-33-04 18:27:00 Test Item Value Reference Range Interpretation Comments BUN (test code = BUN) 32 7-22 [facility] HospitalNnsbcmdRYJGMLFRKKEI7952-02-24 18:27:00 Test Item Value Reference Range Interpretation Comments Glucose Lvl (test code = Glucose Lvl) 75 70-99 [facility] HospitalFugpjntSQUTCMVSHPEA7346-58-52 18:27:00 Test Item Value Reference Range Interpretation Comments Calcium Lvl (test code = Calcium Lvl) 7.9 8.5-10.5 [facility] HospitalOxdosmsKIDHNYQQBHYF4973-63-40 18:27:00 Test Item Value Reference Range Interpretation Comments CO2 (test code = CO2) 14 24-32 [facility] HospitalRllhmdxHDBKBOZSYODX8594-75-90 18:27:00 Test Item Value Reference Range Interpretation Comments Chloride Lvl (test code = Chloride Lvl) 110 95-109 [facility] HospitalNobbnixBIVEEAUFRO4189-62-52 18:27:00 Test Item Value Reference Range Interpretation Comments Hgb (test code = Hgb) 13.8 14.0-18.0 [facility] HospitalIdqpghxZJQTRXLQDS3905-50-54 18:27:00 Test Item Value Reference Range Interpretation Comments Hct (test code = Hct) 40.9 42.0-54.0 [facility] HospitalOrgdcdeDETPXWLKYV9566-03-03 18:27:00 Test Item Value Reference Range Interpretation Comments RBC (test code = RBC) 4.29 4.70-6.10 [facility] HospitalNwgupxzMTPGAECVQK6476-80-07 18:27:00 Test Item Value Reference Range Interpretation Comments MCV (test code = MCV) 95.4 80.0-94.0 [facility] HospitalEmknqjmBBRXCFJFSV8421-28-10 18:27:00 Test Item Value Reference Range Interpretation Comments MCH (test code = MCH) 32.1 pg 27.0-31.0 [facility] HospitalDyldxrrIUMHGYFFSJ0401-86-09 18:27:00 Test Item Value Reference Range Interpretation Comments WBC (test code = WBC) 12.2 3.7-10.4 [facility] HospitalFqhptaiBQGLHOMEEX9725-64-58 18:27:00 Test Item Value Reference Range Interpretation Comments MPV (test code = MPV) 8.8 7.4-10.4 [facility] HospitalJgylwcmHMQEOIABIA3061-49-65 18:27:00 Test Item Value Reference Range Interpretation Comments RDW (test code = RDW) 14.5 11.5-14.5 [facility] HospitalKgvmempVNSZQCWAQC7391-20-03 18:27:00 Test Item Value Reference Range Interpretation Comments Platelet (test code = Platelet) 196 133-450 [facility] HospitalQlhdghhVAIBSJYRFA6306-91-63 18:27:00 Test Item Value Reference Range Interpretation Comments MCHC (test code = MCHC) 33.6 32.0-36.0 [facility] HospitalIjkcokdCXBYIOUWXR1506-01-82 18:27:00 Test Item Value Reference Range Interpretation Comments Lymphocytes # (test code = Lymphocytes 1.6 1.0-5.5 #) [facility] HospitalVruxagxIMFTMMMFGK8656-95-16 18:27:00 Test Item Value Reference Range Interpretation Comments Neutrophils # (test code = Neutrophils 9.6 1.5-8.1 #) [facility] HospitalNymwnwsQLFQPZSVQM0472-17-88 18:27:00 Test Item Value Reference Range Interpretation Comments Basophils # (test code 0.1 See_Comment [Aut omated message] The = Basophils #) system which generated this result tra nsmitted reference range : <=0.2. The reference r jillian was not used to int erpret this result as normal/abnormal . [facility] HospitalCayrdzlEFSLKTYJYA1383-04-28 18:27:00 Test Item Value Reference Range Interpretation Comments Eosinophils # (test code 0.1 See_Comment [A utomated message] The = Eosinophils #) system whic h generated this result tra nsmitted reference range : <=0.5. The reference r jillian was not used to int erpret this result as normal/abnormal . [facility] HospitalFwrvelgZVFHPGLYXE9055-42-83 18:27:00 Test Item Value Reference Range Interpretation Comments Monocytes # (test code 0.9 See_Comment [Aut omated message] The = Monocytes #) system which generated this result tra nsmitted reference range : <=0.8. The reference r jillian was not used to int erpret this result as normal/abnormal . [facility] HospitalPszkosdCEIQOALYSE1230-73-13 18:27:00 Test Item Value Reference Range Interpretation Comments Basophils (test code = 0.5 See_Comment [Aut omated message] The Basophils) system which ge nerated this result tra nsmitted reference range : <=1.0. The reference r jillian was not used to int erpret this result as normal/abnormal . [facility] HospitalFaudrwiABELEWVTHO3140-66-90 18:27:00 Test Item Value Reference Range Interpretation Comments Eosinophils (test code = 1.1 See_Comment [A utomated message] The Eosinophils) system which ge nerated this result tra nsmitted reference range : <=4.0. The reference r jillian was not used to int erpret this result as normal/abnormal . [facility] HospitalJjtkzysRIORVIDAVS0873-54-40 18:27:00 Test Item Value Reference Range Interpretation Comments Monocytes (test code = Monocytes) 7.2 2.0-12.0 [facility] HospitalEsolugzBUMMKTOUXB7062-96-09 18:27:00 Test Item Value Reference Range Interpretation Comments Lymphocytes (test code = Lymphocytes) 12.8 20.0-40.0 [facility] HospitalVzytujqQPGVDJGKKC9279-34-63 18:27:00 Test Item Value Reference Range Interpretation Comments Segs (test code = Segs) 78.4 45.0-75.0 [facility]URIN[facility] WITH [id number] 06:31:00 Test Item Value Reference Range Interpretation [...] code = USPERM) /HPF NONE BASIC METABOLIC [id number] 04:20:00 Test Item Value Reference Range Interpretation [...] = 09D) 7.8 mg/dL 8.3-9.5 L CARDIAC [id number] 04:14:00 Test Item Value Reference Range Interpretation [...] MORPH (test code = RBCMOR) NORMAL CARDIAC [id number] 21:34:00 Test Item Value Reference Range Interpretation Comments TROPONIN I (test code = A84) <0.015 ng/mL 0.000-0.045 CKMB (test code = A49) 1.3 ng/mL <=3.6 CPK (test code = 32A) 50 IU/L 39-308 U/S CAROTID COLOR DOPPLER [id number] 21:13:04Examination: Bilateral carotid Doppler ultrasoundLocation code: T6Zkejrbsnep: NoneTechnique:Clinical history is remarkable for dizziness, giddiness. Real-time sonographicgray scale, color Doppler, andspectral wave form analysis of the extracranialcarotid circulation is being performed.DISCUSSION:RIGHT CAROTID SYSTEM:Peak systolic velocity ICA 34.1 cm/sec, peak systolic velocity common hbprnkmmdcbon10.2 cm/sec, ICA/CCA ratio 0.5Mild intimal hyperplasia of the common carotid artery is present, minim alplaque documented within the mid to distal common carotid, carotid bulb andproximal ICA. There is appropriate flow within the common carotid artery,carotid bulb, internal, and external carotid arteries. Flow is laminar and thevelocities are appropriate. Antegrade vertebral flow is documented.LEFT CAROTID SYSTEM:Peak systolic velocity ICA 46.6 cm/sec, peak systolic velocity common carotidartery 84.5cm/sec, ICA/CCA ratio 0.6Minimal intimal hyperplasia of the common carotid artery is present withminimal distal common carotid plaque, minimal plaque localized at the carotidbulb. There is appropriate flow within the common carotid artery, carotid bulb,internal, and external carotid arteries. Flow is laminar and the velocities areappropriate. Antegrade vertebral flow is documented.Impression:1. Bilateral atherosclerotic changes are present, no hemodynamicallysignificant stenosis identified.CT HEAD W/O [id number] 14:56:12CT Brain without contrast.Location code:S4FXOOTAIE HISTORY: [id number]: Chest painComparison: NoneTechnique: Routine unenhanced CT brain [...] acuteintracranial abnormality. Old right thalamic infarct.AMYLASE AND [id number] 14:42:00 Test Item Value Reference Range Interpretation Comments AMYLASE (test code = 10A) 68 U/L 28-100 LIPASE (test code = 60A) 130 IU/L 73-393 COMPREHENSIVE METABOLIC [id number] 14:42:00 Test Item Value Reference Range Interpretation [...] 31A) 23 IU/L <=78 PRO TIME AND [id number] 14:41:00 Test Item Value Reference Range Interpretation [...] Code is ANTI-XA XR CHEST 1 VIEW [id number] 14:38:47EXAMINATION: XR CHEST 1 VIEW PORTABLE.LOCATION: D4.HISTORY: Chest pain, dizziness.COMPARISON: None.FI NDINGS:Examination is limited due to portable technique, patient body habitus and lowlung volumes.Cardiac silhouette/Mediastinal contour: Prominence of cardiac silhouette. Lungs: No focal consolidation. No large pleural effusion. Pulmonary vascularcongestion.Osseous Structures: Mild degenerative changes of thoracic spine.IMPRESSION: Limited study, pulmonary vascular congestion.DRUGS OF [id number] 14:36:00 Test Item Value Reference Range Interpretation [...] (test code = RBCMOR) NORMAL REFERENCE LAB [id number] 19:22:00 Test Item Value Reference Range Interpretation Comments Test Name (test code = HLA TYPING RESULTS Test Name) [facility] LAB [id number] 19:22:00 Test Item Value Reference Range Interpretation Comments Test Name (test code = HLA TYPING RESULTS Test Name) [facility] LAB [id number] 19:22:00 Test Item Value Reference Range Interpretation Comments Test Name (test code = HLA TYPING RESULTS Test Name) [facility] [employer] [id number] 16:20:00 Test Item Value Reference Range Interpretation Comments eGFR (test code = eGFR) 12 [facility] [id number] 16:20:00 Test Item Value Reference Range Interpretation Comments POC Hematocrit (test code = POC 30.0 42.0-54.0 Hematocrit) [facility] [id number] 16:20:00 Test Item Value Reference Range Interpretation Comments POC Creatinine (test code = POC 5.0 0.5-1.4 Creatinine) [facility]2018-04-05 16:20:00 Test Item Value Reference Range Interpretation Comments POC Hemoglobin (test code = POC 10.2 14.0-18.0 Hemoglobin) [facility]2018-04-05 16:20:00 Test Item Value Reference Range Interpretation Comments POC Carbon Dioxide (test code = POC 24 24-32 Carbon Dioxide) [facility]2018-04-05 16:20:00 Test Item Value Reference Range Interpretation Comments POC BUN (test code = POC BUN) 22 7-22 [facility]2018-04-05 16:20:00 Test Item Value Reference Range Interpretation Comments POC Glucose (test code = POC Glucose) 96 70-99 [facility]2018-04-05 16:20:00 Test Item Value Reference Range Interpretation Comments POC Ion Ca (test code = POC Ion Ca) 1.06 1.05-1.25 [facility]2018-04-05 16:20:00 Test Item Value Reference Range Interpretation Comments POC AGAP (test code = POC AGAP) 16.0 10.0-20.0 [facility]2018-04-05 16:20:00 Test Item Value Reference Range Interpretation Comments POC Potassium (test code = POC 4.2 3.5-5.1 Potassium) [facility]2018-04-05 16:20:00 Test Item Value Reference Range Interpretation Comments POC Chloride (test code = POC Chloride) 103 95-109 [facility]2018-04-05 16:20:00 Test Item Value Reference Range Interpretation Comments POC Sodium (test code = POC Sodium) 137 135-145 [facility]2018-04-05 16:20:00 Test Item Value Reference Range Interpretation Comments eGFR (test code = eGFR) 12 [facility]2018-04-05 16:20:00 Test Item Value Reference Range Interpretation Comments POC Hematocrit (test code = POC 30.0 42.0-54.0 Hematocrit) [facility]2018-04-05 16:20:00 Test Item Value Reference Range Interpretation Comments POC Creatinine (test code = POC 5.0 0.5-1.4 Creatinine) [facility]2018-04-05 16:20:00 Test Item Value Reference Range Interpretation Comments POC Hemoglobin (test code = POC 10.2 14.0-18.0 Hemoglobin) [facility]2018-04-05 16:20:00 Test Item Value Reference Range Interpretation Comments POC Carbon Dioxide (test code = POC 24 24-32 Carbon Dioxide) [facility]2018-04-05 16:20:00 Test Item Value Reference Range Interpretation Comments POC BUN (test code = POC BUN) 22 7-22 [facility]2018-04-05 16:20:00 Test Item Value Reference Range Interpretation Comments POC Glucose (test code = POC Glucose) 96 70-99 [facility]2018-04-05 16:20:00 Test Item Value Reference Range Interpretation Comments POC Ion Ca (test code = POC Ion Ca) 1.06 1.05-1.25 [facility]2018-04-05 16:20:00 Test Item Value Reference Range Interpretation Comments POC AGAP (test code = POC AGAP) 16.0 10.0-20.0 [facility]2018-04-05 16:20:00 Test Item Value Reference Range Interpretation Comments POC Potassium (test code = POC 4.2 3.5-5.1 Potassium) [facility]2018-04-05 16:20:00 Test Item Value Reference Range Interpretation Comments POC Chloride (test code = POC Chloride) 103 95-109 [facility]2018-04-05 16:20:00 Test Item Value Reference Range Interpretation Comments POC Sodium (test code = POC Sodium) 137 135-145 [facility]2018-04-05 16:20:00 Test Item Value Reference Range Interpretation Comments eGFR (test code = eGFR) 12 [facility]2018-04-05 16:20:00 Test Item Value Reference Range Interpretation Comments POC Hematocrit (test code = POC 30.0 42.0-54.0 Hematocrit) [facility]2018-04-05 16:20:00 Test Item Value Reference Range Interpretation Comments POC Creatinine (test code = POC 5.0 0.5-1.4 Creatinine) [facility] [facility]2018-04-05 16:20:00 Test Item Value Reference Range Interpretation Comments POC Hemoglobin (test code = POC 10.2 14.0-18.0 Hemoglobin) [facility]2018-04-05 16:20:00 Test Item Value Reference Range Interpretation Comments POC Carbon Dioxide (test code = POC 24 24-32 Carbon Dioxide) [facility]2018-04-05 16:20:00 Test Item Value Reference Range Interpretation Comments POC BUN (test code = POC BUN) 22 7-22 [facility]2018-04-05 16:20:00 Test Item Value Reference Range Interpretation Comments POC Glucose (test code = POC Glucose) 96 70-99 [facility]2018-04-05 16:20:00 Test Item Value Reference Range Interpretation Comments POC Ion Ca (test code = POC Ion Ca) 1.06 1.05-1.25 [facility]2018-04-05 16:20:00 Test Item Value Reference Range Interpretation Comments POC AGAP (test code = POC AGAP) 16.0 10.0-20.0 [facility]2018-04-05 16:20:00 Test Item Value Reference Range Interpretation Comments POC Potassium (test code = POC 4.2 3.5-5.1 Potassium) [facility]2018-04-05 16:20:00 Test Item Value Reference Range Interpretation Comments POC Chloride (test code = POC Chloride) 103 95-109 [facility]2018-04-05 16:20:00 Test Item Value Reference Range Interpretation Comments POC Sodium (test code = POC Sodium) 137 135-145 [facility]2018-04-05 11:56:00 Test Item Value Reference Range Interpretation Comments eGFR (test code = eGFR) 12 [facility]2018-04-05 11:56:00 Test Item Value Reference Range Interpretation Comments POC Creatinine (test code = POC 5.0 0.5-1.4 Creatinine) [facility]2018-04-05 11:56:00 Test Item Value Reference Range Interpretation Comments POC Glucose (test code = POC Glucose) 109 70-99 [facility]2018-04-05 11:56:00 Test Item Value Reference Range Interpretation Comments POC BUN (test code = POC BUN) 22 7-22 [facility]2018-04-05 11:56:00 Test Item Value Reference Range Interpretation Comments POC Ion Ca (test code = POC Ion Ca) 1.08 1.05-1.25 [facility]2018-04-05 11:56:00 Test Item Value Reference Range Interpretation Comments POC AGAP (test code = POC AGAP) 18.0 10.0-20.0 [facility]2018-04-05 11:56:00 Test Item Value Reference Range Interpretation Comments POC Hemoglobin (test code = POC 11.9 14.0-18.0 Hemoglobin) [facility]2018-04-05 11:56:00 Test Item Value Reference Range Interpretation Comments POC Hematocrit (test code = POC 35.0 42.0-54.0 Hematocrit) [facility]2018-04-05 11:56:00 Test Item Value Reference Range Interpretation Comments POC Chloride (test code = POC Chloride) 103 95-109 [facility]2018-04-05 11:56:00 Test Item Value Reference Range Interpretation Comments POC Sodium (test code = POC Sodium) 139 135-145 [facility]2018-04-05 11:56:00 Test Item Value Reference Range Interpretation Comments POC Potassium (test code = POC 3.7 3.5-5.1 Potassium) [facility]2018-04-05 11:56:00 Test Item Value Reference Range Interpretation Comments POC Carbon Dioxide (test code = POC 22 24-32 Carbon Dioxide) [facility]2018-04-05 11:56:00 Test Item Value Reference Range Interpretation Comments eGFR (test code = eGFR) 12 [facility]2018-04-05 11:56:00 Test Item Value Reference Range Interpretation Comments POC Creatinine (test code = POC 5.0 0.5-1.4 Creatinine) [facility]2018-04-05 11:56:00 Test Item Value Reference Range Interpretation Comments POC Glucose (test code = POC Glucose) 109 70-99 [facility]2018-04-05 11:56:00 Test Item Value Reference Range Interpretation Comments POC BUN (test code = POC BUN) 22 7-22 [facility]2018-04-05 11:56:00 Test Item Value Reference Range Interpretation Comments POC Ion Ca (test code = POC Ion Ca) 1.08 1.05-1.25 [facility]2018-04-05 11:56:00 Test Item Value Reference Range Interpretation Comments POC AGAP (test code = POC AGAP) 18.0 10.0-20.0 [facility]2018-04-05 11:56:00 Test Item Value Reference Range Interpretation Comments POC Hemoglobin (test code = POC 11.9 14.0-18.0 Hemoglobin) [facility]2018-04-05 11:56:00 Test Item Value Reference Range Interpretation Comments POC Hematocrit (test code = POC 35.0 42.0-54.0 Hematocrit) [facility]2018-04-05 11:56:00 Test Item Value Reference Range Interpretation Comments POC Chloride (test code = POC Chloride) 103 95-109 [facility]2018-04-05 11:56:00 Test Item Value Reference Range Interpretation Comments POC Sodium (test code = POC Sodium) 139 135-145 [facility]2018-04-05 11:56:00 Test Item Value Reference Range Interpretation Comments POC Potassium (test code = POC 3.7 3.5-5.1 Potassium) [facility]2018-04-05 11:56:00 Test Item Value Reference Range Interpretation Comments POC Carbon Dioxide (test code = POC 22 24-32 Carbon Dioxide) [facility]2018-04-05 11:56:00 Test Item Value Reference Range Interpretation Comments eGFR (test code = eGFR) 12 [facility]2018-04-05 11:56:00 Test Item Value Reference Range Interpretation Comments POC Creatinine (test code = POC 5.0 0.5-1.4 Creatinine) [facility]2018-04-05 11:56:00 Test Item Value Reference Range Interpretation Comments POC Glucose (test code = POC Glucose) 109 70-99 [facility]2018-04-05 11:56:00 Test Item Value Reference Range Interpretation Comments POC BUN (test code = POC BUN) 22 7-22 [facility]2018-04-05 11:56:00 Test Item Value Reference Range Interpretation Comments POC Ion Ca (test code = POC Ion Ca) 1.08 1.05-1.25 [facility]2018-04-05 11:56:00 Test Item Value Reference Range Interpretation Comments POC AGAP (test code = POC AGAP) 18.0 10.0-20.0 [facility]2018-04-05 11:56:00 Test Item Value Reference Range Interpretation Comments POC Hemoglobin (test code = POC 11.9 14.0-18.0 Hemoglobin) [facility]2018-04-05 11:56:00 Test Item Value Reference Range Interpretation Comments POC Hematocrit (test code = POC 35.0 42.0-54.0 Hematocrit) [facility]2018-04-05 11:56:00 Test Item Value Reference Range Interpretation Comments POC Chloride (test code = POC Chloride) 103 95-109 [facility]2018-04-05 11:56:00 Test Item Value Reference Range Interpretation Comments POC Sodium (test code = POC Sodium) 139 135-145 [facility]2018-04-05 11:56:00 Test Item Value Reference Range Interpretation Comments POC Potassium (test code = POC 3.7 3.5-5.1 Potassium) [facility]2018-04-05 11:56:00 Test Item Value Reference Range Interpretation Comments POC Carbon Dioxide (test code = POC 22 24-32 Carbon Dioxide) [facility]2018-02-15 21:17:00 Test Item Value Reference Range Interpretation Comments POC Ion Ca (test code = POC Ion Ca) 1.05 1.05-1.25 [facility]2018-02-15 21:17:00 Test Item Value Reference Range Interpretation Comments POC Hemoglobin (test code = POC 11.6 14.0-18.0 Hemoglobin) [facility]2018-02-15 21:17:00 Test Item Value Reference Range Interpretation Comments POC AGAP (test code = POC AGAP) 18.0 10.0-20.0 [facility]2018-02-15 21:17:00 Test Item Value Reference Range Interpretation Comments POC Glucose (test code = POC Glucose) 88 70-99 [facility]2018-02-15 21:17:00 Test Item Value Reference Range Interpretation Comments POC Hematocrit (test code = POC 34.0 42.0-54.0 Hematocrit) [facility]2018-02-15 21:17:00 Test Item Value Reference Range Interpretation Comments POC Carbon Dioxide (test code = POC 24 24-32 Carbon Dioxide) [facility]2018-02-15 21:17:00 Test Item Value Reference Range Interpretation Comments POC Potassium (test code = POC 4.2 3.5-5.1 Potassium) [facility]2018-02-15 21:17:00 Test Item Value Reference Range Interpretation Comments POC Creatinine (test code = POC 6.2 0.5-1.4 Creatinine) [facility]2018-02-15 21:17:00 Test Item Value Reference Range Interpretation Comments POC BUN (test code = POC BUN) 27 7-22 [facility]2018-02-15 21:17:00 Test Item Value Reference Range Interpretation Comments POC Chloride (test code = POC Chloride) 103 95-109 [facility]2018-02-15 21:17:00 Test Item Value Reference Range Interpretation Comments POC Sodium (test code = POC Sodium) 139 135-145 [facility]2018-02-15 21:17:00 Test Item Value Reference Range Interpretation Comments eGFR (test code = eGFR) 9 [facility]2018-02-15 21:17:00 Test Item Value Reference Range Interpretation Comments POC Ion Ca (test code = POC Ion Ca) 1.05 1.05-1.25 [facility]2018-02-15 21:17:00 Test Item Value Reference Range Interpretation Comments POC Hemoglobin (test code = POC 11.6 14.0-18.0 Hemoglobin) [facility]2018-02-15 21:17:00 Test Item Value Reference Range Interpretation Comments POC AGAP (test code = POC AGAP) 18.0 10.0-20.0 [facility]2018-02-15 21:17:00 Test Item Value Reference Range Interpretation Comments POC Glucose (test code = POC Glucose) 88 70-99 [facility]2018-02-15 21:17:00 Test Item Value Reference Range Interpretation Comments POC Hematocrit (test code = POC 34.0 42.0-54.0 Hematocrit) [facility]2018-02-15 21:17:00 Test Item Value Reference Range Interpretation Comments POC Carbon Dioxide (test code = POC 24 24-32 Carbon Dioxide) [facility]2018-02-15 21:17:00 Test Item Value Reference Range Interpretation Comments POC Potassium (test code = POC 4.2 3.5-5.1 Potassium) [facility]2018-02-15 21:17:00 Test Item Value Reference Range Interpretation Comments POC Creatinine (test code = POC 6.2 0.5-1.4 Creatinine) [facility]2018-02-15 21:17:00 Test Item Value Reference Range Interpretation Comments POC BUN (test code = POC BUN) 27 7-22 [facility]2018-02-15 21:17:00 Test Item Value Reference Range Interpretation Comments POC Chloride (test code = POC Chloride) 103 95-109 [facility]2018-02-15 21:17:00 Test Item Value Reference Range Interpretation Comments POC Sodium (test code = POC Sodium) 139 135-145 [facility]2018-02-15 21:17:00 Test Item Value Reference Range Interpretation Comments eGFR (test code = eGFR) 9 [facility]2018-02-15 21:17:00 Test Item Value Reference Range Interpretation Comments POC Ion Ca (test code = POC Ion Ca) 1.05 1.05-1.25 [facility]2018-02-15 21:17:00 Test Item Value Reference Range Interpretation Comments POC Hemoglobin (test code = POC 11.6 14.0-18.0 Hemoglobin) [facility]2018-02-15 21:17:00 Test Item Value Reference Range Interpretation Comments POC AGAP (test code = POC AGAP) 18.0 10.0-20.0 [facility]2018-02-15 21:17:00 Test Item Value Reference Range Interpretation Comments POC Glucose (test code = POC Glucose) 88 70-99 [facility]2018-02-15 21:17:00 Test Item Value Reference Range Interpretation Comments POC Hematocrit (test code = POC 34.0 42.0-54.0 Hematocrit) [facility]2018-02-15 21:17:00 Test Item Value Reference Range Interpretation Comments POC Carbon Dioxide (test code = POC 24 24-32 Carbon Dioxide) [facility]2018-02-15 21:17:00 Test Item Value Reference Range Interpretation Comments POC Potassium (test code = POC 4.2 3.5-5.1 Potassium) [facility]2018-02-15 21:17:00 Test Item Value Reference Range Interpretation Comments POC Creatinine (test code = POC 6.2 0.5-1.4 Creatinine) [facility]2018-02-15 21:17:00 Test Item Value Reference Range Interpretation Comments POC BUN (test code = POC BUN) 27 7-22 [facility]2018-02-15 21:17:00 Test Item Value Reference Range Interpretation Comments POC Chloride (test code = POC Chloride) 103 95-109 [facility]2018-02-15 21:17:00 Test Item Value Reference Range Interpretation Comments POC Sodium (test code = POC Sodium) 139 135-145 [facility]2018-02-15 21:17:00 Test Item Value Reference Range Interpretation Comments eGFR (test code = eGFR) 9 [facility]2018-02-15 17:38:00 Test Item Value Reference Range Interpretation Comments eGFR (test code = eGFR) 9 [facility]2018-02-15 17:38:00 Test Item Value Reference Range Interpretation Comments POC Glucose (test code = POC Glucose) 108 70-99 [facility]2018-02-15 17:38:00 Test Item Value Reference Range Interpretation Comments POC Hematocrit (test code = POC 39.0 42.0-54.0 Hematocrit) [facility]2018-02-15 17:38:00 Test Item Value Reference Range Interpretation Comments POC Hemoglobin (test code = POC 13.3 14.0-18.0 Hemoglobin) [facility]2018-02-15 17:38:00 Test Item Value Reference Range Interpretation Comments POC Creatinine (test code = POC 6.2 0.5-1.4 Creatinine) [facility]2018-02-15 17:38:00 Test Item Value Reference Range Interpretation Comments POC BUN (test code = POC BUN) 27 7- [facility]2018-02-15 17:38:00 Test Item Value Reference Range Interpretation Comments POC Ion Ca (test code = POC Ion Ca) 1.13 1.05-1.25 [facility]2018-02-15 17:38:00 Test Item Value Reference Range Interpretation Comments POC AGAP (test code = POC AGAP) 17.0 10.0-20.0 [facility]2018-02-15 17:38:00 Test Item Value Reference Range Interpretation Comments POC Potassium (test code = POC 3.9 3.5-5.1 Potassium) [facility]2018-02-15 17:38:00 Test Item Value Reference Range Interpretation Comments POC Chloride (test code = POC Chloride) 103 95-109 [facility]2018-02-15 17:38:00 Test Item Value Reference Range Interpretation Comments POC Carbon Dioxide (test code = POC 23 24-32 Carbon Dioxide) [facility]2018-02-15 17:38:00 Test Item Value Reference Range Interpretation Comments POC Sodium (test code = POC Sodium) 138 135-145 [facility]2018-02-15 17:38:00 Test Item Value Reference Range Interpretation Comments eGFR (test code = eGFR) 9 [facility]2018-02-15 17:38:00 Test Item Value Reference Range Interpretation Comments POC Glucose (test code = POC Glucose) 108 70-99 [facility]2018-02-15 17:38:00 Test Item Value Reference Range Interpretation Comments POC Hematocrit (test code = POC 39.0 42.0-54.0 Hematocrit) [facility]2018-02-15 17:38:00 Test Item Value Reference Range Interpretation Comments POC Hemoglobin (test code = POC 13.3 14.0-18.0 Hemoglobin) [facility]2018-02-15 17:38:00 Test Item Value Reference Range Interpretation Comments POC Creatinine (test code = POC 6.2 0.5-1.4 Creatinine) [facility]2018-02-15 17:38:00 Test Item Value Reference Range Interpretation Comments POC BUN (test code = POC BUN) 27 7-22 [facility]2018-02-15 17:38:00 Test Item Value Reference Range Interpretation Comments POC Ion Ca (test code = POC Ion Ca) 1.13 1.05-1.25 [facility]2018-02-15 17:38:00 Test Item Value Reference Range Interpretation Comments POC AGAP (test code = POC AGAP) 17.0 10.0-20.0 [facility]2018-02-15 17:38:00 Test Item Value Reference Range Interpretation Comments POC Potassium (test code = POC 3.9 3.5-5.1 Potassium) [facility]2018-02-15 17:38:00 Test Item Value Reference Range Interpretation Comments POC Chloride (test code = POC Chloride) 103 95-109 [facility]2018-02-15 17:38:00 Test Item Value Reference Range Interpretation Comments POC Carbon Dioxide (test code = POC 23 24-32 Carbon Dioxide) [facility]2018-02-15 17:38:00 Test Item Value Reference Range Interpretation Comments POC Sodium (test code = POC Sodium) 138 135-145 [facility]2018-02-15 17:38:00 Test Item Value Reference Range Interpretation Comments eGFR (test code = eGFR) 9 [facility]2018-02-15 17:38:00 Test Item Value Reference Range Interpretation Comments POC Glucose (test code = POC Glucose) 108 70-99 [facility]2018-02-15 17:38:00 Test Item Value Reference Range Interpretation Comments POC Hematocrit (test code = POC 39.0 42.0-54.0 Hematocrit) [facility]2018-02-15 17:38:00 Test Item Value Reference Range Interpretation Comments POC Hemoglobin (test code = POC 13.3 14.0-18.0 Hemoglobin) [facility]2018-02-15 17:38:00 Test Item Value Reference Range Interpretation Comments POC Creatinine (test code = POC 6.2 0.5-1.4 Creatinine) [facility]2018-02-15 17:38:00 Test Item Value Reference Range Interpretation Comments POC BUN (test code = POC BUN) 27 7-22 [facility]2018-02-15 17:38:00 Test Item Value Reference Range Interpretation Comments POC Ion Ca (test code = POC Ion Ca) 1.13 1.05-1.25 [facility]2018-02-15 17:38:00 Test Item Value Reference Range Interpretation Comments POC AGAP (test code = POC AGAP) 17.0 10.0-20.0 [facility]2018-02-15 17:38:00 Test Item Value Reference Range Interpretation Comments POC Potassium (test code = POC 3.9 3.5-5.1 Potassium) [facility]2018-02-15 17:38:00 Test Item Value Reference Range Interpretation Comments POC Chloride (test code = POC Chloride) 103 95-109 [facility]2018-02-15 17:38:00 Test Item Value Reference Range Interpretation Comments POC Carbon Dioxide (test code = POC 23 24-32 Carbon Dioxide) [facility]2018-02-15 17:38:00 Test Item Value Reference Range Interpretation Comments POC Sodium (test code = POC Sodium) 138 135-145 [id number] 17:16:00 Test Item Value Reference Range Interpretation Comments POC Hematocrit (test code = POC 34.0 42.0-54.0 Hematocrit) [id number] 17:16:00 Test Item Value Reference Range Interpretation Comments POC Potassium (test code = POC 4.3 3.5-5.1 Potassium) [facility]ddtcsjFDXMQDDXJY5264-46-77 17:16:00 Test Item Value Reference Range Interpretation Comments POC Sodium (test code = POC Sodium) 140 135-145 [facility]OmtfxcoYPDHETPNLZ4579-00-81 17:16:00 Test Item Value Reference Range Interpretation Comments POC Chloride (test code = POC Chloride) 106 95-109 [facility]IjwqwlzRZISBYRWRH3638-56-59 17:16:00 Test Item Value Reference Range Interpretation Comments POC Glucose (test code = POC Glucose) 118 70-99 [facility]VjhnjoyZEEYQIJNGR6079-21-35 17:16:00 Test Item Value Reference Range Interpretation Comments POC BUN (test code = POC BUN) 21 7- [facility]ItavmjiSTKJPMQSBE0469-56-39 17:16:00 Test Item Value Reference Range Interpretation Comments POC Hemoglobin (test code = POC 11.6 14.0-18.0 Hemoglobin) [facility]NbcbxunCFIOSRKUTV2558-11-29 17:16:00 Test Item Value Reference Range Interpretation Comments POC Hematocrit (test code = POC 34.0 42.0-54.0 Hematocrit) [facility]CepipbdDUDOXZZQQH3017-35-92 17:16:00 Test Item Value Reference Range Interpretation Comments POC Potassium (test code = POC 4.3 3.5-5.1 Potassium) [facility]XttcpedEBACCKNSYV2995-10-38 17:16:00 Test Item Value Reference Range Interpretation Comments POC Sodium (test code = POC Sodium) 140 135-145 [facility] HospitalExxtoawWLCRXZAPZM6315-25-83 17:16:00 Test Item Value Reference Range Interpretation Comments POC Chloride (test code = POC Chloride) 106 95-109 [facility] HospitalTuwldusJXHMKHLDDL2064-15-66 17:16:00 Test Item Value Reference Range Interpretation Comments POC Glucose (test code = POC Glucose) 118 70-99 [facility]LejkdgtIXSTJVKOEJ2090-25-44 17:16:00 Test Item Value Reference Range Interpretation Comments POC BUN (test code = POC BUN) 04-19 [facility]ImjrhvtJFXYUJKZEI3780-80-23 17:16:00 Test Item Value Reference Range Interpretation Comments POC Hemoglobin (test code = POC 11.6 14.0-18.0 Hemoglobin) [facility] HospitalXlmhsvmRPINACAOOI8657-20-96 17:16:00 Test Item Value Reference Range Interpretation Comments POC Hematocrit (test code = POC 34.0 42.0-54.0 Hematocrit) [facility] HospitalFvodezsQOGMIVFWHY0188-21-03 17:16:00 Test Item Value Reference Range Interpretation Comments POC Potassium (test code = POC 4.3 3.5-5.1 Potassium) [facility] Hospit[id number] 17:16:00 Test Item Value Reference Range Interpretation Comments POC Sodium (test code = POC Sodium) 140 135-145 [facility] HospitalImsigywSYVVQDFBHI0428-88-48 17:16:00 Test Item Value Reference Range Interpretation Comments POC Chloride (test code = POC Chloride) 106 95-109 [facility] HospitalJpdhsedUTKELMJDBQ6470-82-71 17:16:00 Test Item Value Reference Range Interpretation Comments POC Glucose (test code = POC Glucose) 118 70-99 [facility] HospitalHnglscjFNOVIQCUTO9880-55-49 17:16:00 Test Item Value Reference Range Interpretation Comments POC BUN (test code = POC BUN) 04-19 [facility] HospitalEypxqvvQIVMBSGFNU2511-88-67 17:16:00 Test Item Value Reference Range Interpretation Comments POC Hemoglobin (test code = POC 11.6 14.0-18.0 Hemoglobin) [facility] HospitalCwhfvfwXXLOCBAZSV5207-82-09 12:26:00 Test Item Value Reference Range Interpretation Comments POC Hematocrit (test code = POC 39.0 42.0-54.0 Hematocrit) [facility] HospitalEcnrdazEYRKRJPRJZ4126-57-65 12:26:00 Test Item Value Reference Range Interpretation Comments POC Hemoglobin (test code = POC 13.3 14.0-18.0 Hemoglobin) [facility] HospitalRbizaqfWNQZPSLNMI9579-35-00 12:26:00 Test Item Value Reference Range Interpretation Comments POC BUN (test code = POC BUN) 04-19 [facility]SasqhrmMWEWMFCHGV3492-38-22 12:26:00 Test Item Value Reference Range Interpretation Comments POC Glucose (test code = POC Glucose) 108 70-99 [facility] HospitalTbttbrgESUSVNVPJP7396-46-94 12:26:00 Test Item Value Reference Range Interpretation Comments POC Sodium (test code = POC Sodium) 139 135-145 [facility] HospitalFpeajjbHLJZARIBDV6896-40-90 12:26:00 Test Item Value Reference Range Interpretation Comments POC Chloride (test code = POC Chloride) 105 95-109 [facility] HospitalIcxystwCUHSKAEYFX2287-59-08 12:26:00 Test Item Value Reference Range Interpretation Comments POC Potassium (test code = POC 4.2 3.5-5.1 Potassium) [facility] HospitalOycopefWEHPIPPJXS3924-68-27 12:26:00 Test Item Value Reference Range Interpretation Comments POC Hematocrit (test code = POC 39.0 42.0-54.0 Hematocrit) [facility] HospitalAodjmoyBONTJZHYJH0047-84-06 12:26:00 Test Item Value Reference Range Interpretation Comments POC Hemoglobin (test code = POC 13.3 14.0-18.0 Hemoglobin) [facility] HospitalAylysdvLRSMARIHER8141-34-54 12:26:00 Test Item Value Reference Range Interpretation Comments POC BUN (test code = POC BUN) 04-19 [facility] HospitalRbxwvlcSEUIVUHHRN6899-06-88 12:26:00 Test Item Value Reference Range Interpretation Comments POC Glucose (test code = POC Glucose) 108 70-99 [facility] HospitalLzbwkyiJDHXOQGDEI8083-26-55 12:26:00 Test Item Value Reference Range Interpretation Comments POC Sodium (test code = POC Sodium) 139 135-145 [facility] HospitalLyrcnpaPXEVIGSTVA3122-33-98 12:26:00 Test Item Value Reference Range Interpretation Comments POC Chloride (test code = POC Chloride) 105 95-109 [facility] HospitalXwgojdmLAOQZIUJIR4083-69-87 12:26:00 Test Item Value Reference Range Interpretation Comments POC Potassium (test code = POC 4.2 3.5-5.1 Potassium) [facility] HospitalDdwluhuOAHHYLLVMC7520-43-05 12:26:00 Test Item Value Reference Range Interpretation Comments POC Hematocrit (test code = POC 39.0 42.0-54.0 Hematocrit) [facility] HospitalEuvjhnlARQFAJNHMF0499-56-51 12:26:00 Test Item Value Reference Range Interpretation Comments POC Hemoglobin (test code = POC 13.3 14.0-18.0 Hemoglobin) [facility] HospitalDcmctogNQWHZDKRWJ7449-48-65 12:26:00 Test Item Value Reference Range Interpretation Comments POC BUN (test code = POC BUN) 04-19 [facility] HospitalRkawyuuQKSNWIBGHC3317-16-92 12:26:00 Test Item Value Reference Range Interpretation Comments POC Glucose (test code = POC Glucose) 108 70-99 [facility] HospitalPjpdxvlOTXBNJNUXF5524-87-23 12:26:00 Test Item Value Reference Range Interpretation Comments POC Sodium (test code = POC Sodium) 139 135-145 [facility] HospitalZvglqpsNNRDJSXAVB4275-22-25 12:26:00 Test Item Value Reference Range Interpretation Comments POC Chloride (test code = POC Chloride) 105 95-109 [facility] HospitalXecrguyXEKNUTJSWC1083-42-48 12:26:00 Test Item Value Reference Range Interpretation Comments POC Potassium (test code = POC 4.2 3.5-5.1 Potassium) [facility] HospitalUiegpxwWZMZRBXESQ0380-42-80 18:25:00 Test Item Value Reference Range Interpretation Comments POC Hematocrit (test code = POC 30.0 42.0-54.0 Hematocrit) [facility] HospitalLljptuzAOPKFLFJSM7299-42-24 18:25:00 Test Item Value Reference Range Interpretation Comments POC Hemoglobin (test code = POC 10.2 14.0-18.0 Hemoglobin) [facility] HospitalMjroohgYWNYVMGRSW7301-34-32 18:25:00 Test Item Value Reference Range Interpretation Comments POC Glucose (test code = POC Glucose) 94 70-99 [facility] HospitalLjjkvjoYCNOUJIONQ1867-55-79 18:25:00 Test Item Value Reference Range Interpretation Comments POC Chloride (test code = POC Chloride) 103 95-109 [facility] HospitalAmryttxQKSONVDUPF2164-09-07 18:25:00 Test Item Value Reference Range Interpretation Comments POC Sodium (test code = POC Sodium) 135 135-145 [facility] HospitalEdqudegAVTKNQRPIP4752-64-59 18:25:00 Test Item Value Reference Range Interpretation Comments POC Potassium (test code = POC 5.5 3.5-5.1 Potassium) [facility] HospitalQpxosufORTQIICHRJ0666-79-56 18:25:00 Test Item Value Reference Range Interpretation Comments POC BUN (test code = POC BUN) 16 7- [facility] HospitalNtnrmqiESQFQRPLHK1245-93-41 18:25:00 Test Item Value Reference Range Interpretation Comments POC Hematocrit (test code = POC 30.0 42.0-54.0 Hematocrit) [facility] HospitalOeierobBKDEIMIRUT4749-62-73 18:25:00 Test Item Value Reference Range Interpretation Comments POC Hemoglobin (test code = POC 10.2 14.0-18.0 Hemoglobin) [facility] HospitalQejdhbgIGCHFHELVT6208-12-37 18:25:00 Test Item Value Reference Range Interpretation Comments POC Glucose (test code = POC Glucose) 94 70-99 [facility] HospitalNouyjbqASQQFIHCOF1351-23-03 18:25:00 Test Item Value Reference Range Interpretation Comments POC Chloride (test code = POC Chloride) 103 95-109 [facility] HospitalWushzxjRZXPPZAQWZ3025-28-72 18:25:00 Test Item Value Reference Range Interpretation Comments POC Sodium (test code = POC Sodium) 135 135-145 [facility] HospitalSibqkqkMNQFMDRTFV4445-46-95 18:25:00 Test Item Value Reference Range Interpretation Comments POC Potassium (test code = POC 5.5 3.5-5.1 Potassium) [facility] HospitalIstgwslCOABJUYSZK0975-18-49 18:25:00 Test Item Value Reference Range Interpretation Comments POC BUN (test code = POC BUN) 04-19 [facility] HospitalDpvxpvcFJOOYHPIWZ3466-58-69 18:25:00 Test Item Value Reference Range Interpretation Comments POC Hematocrit (test code = POC 30.0 42.0-54.0 Hematocrit) [facility] HospitalQiqrvkpDGBKLPQEVV7387-93-23 18:25:00 Test Item Value Reference Range Interpretation Comments POC Hemoglobin (test code = POC 10.2 14.0-18.0 Hemoglobin) [facility] HospitalUaaqynsCIROLUNFZP4698-65-00 18:25:00 Test Item Value Reference Range Interpretation Comments POC Glucose (test code = POC Glucose) 94 70-99 [facility] HospitalUvfjruwOFLBAIPTHQ8328-95-67 18:25:00 Test Item Value Reference Range Interpretation Comments POC Chloride (test code = POC Chloride) 103 95-109 [facility] HospitalLrwwzqwBMXZOCCBRV1697-71-95 18:25:00 Test Item Value Reference Range Interpretation Comments POC Sodium (test code = POC Sodium) 135 135-145 [facility] HospitalKufnthoPOJJAMKLNJ5552-57-03 18:25:00 Test Item Value Reference Range Interpretation Comments POC Potassium (test code = POC 5.5 3.5-5.1 Potassium) [facility] HospitalXviijdoYMAUIIMCZA4492-25-95 18:25:00 Test Item Value Reference Range Interpretation Comments POC BUN (test code = POC BUN) 04-19 [facility]DefylpuJFGRSXTNQDYP4910-28-34 15:01:00 Test Item Value Reference Range Interpretation Comments POC Sodium (test code = POC Sodium) 135 135-145 [facility] HospitalUzlsnrfUCTIZPSJEEGG1481-67-08 15:01:00 Test Item Value Reference Range Interpretation Comments POC Hematocrit (test code = POC 31.0 42.0-54.0 Hematocrit) [facility] HospitalVnhqinmSVPWOQMNNRCZ1371-83-91 15:01:00 Test Item Value Reference Range Interpretation Comments POC Hemoglobin (test code = POC 10.5 14.0-18.0 Hemoglobin) [facility] HospitalGzgbimnFZDMEWDKFIVS6096-85-88 15:01:00 Test Item Value Reference Range Interpretation Comments POC Chloride (test code = POC Chloride) 101 95-109 [facility] HospitalRebrjbiQUMBZGRGLLAK7297-21-80 15:01:00 Test Item Value Reference Range Interpretation Comments POC Potassium (test code = POC 4.7 3.5-5.1 Potassium) [facility] HospitalOqjctwxJRIJFRROXYBI5010-22-46 15:01:00 Test Item Value Reference Range Interpretation Comments POC Glucose (test code = POC Glucose) 94 70-99 [facility] HospitalTbtwoulKKZJSGCDQVLV9477-03-25 15:01:00 Test Item Value Reference Range Interpretation Comments POC BUN (test code = POC BUN) 04-19 [facility] HospitalNgeauzmMJLZOZLGHKST5482-03-15 15:01:00 Test Item Value Reference Range Interpretation Comments POC Sodium (test code = POC Sodium) 135 135-145 [facility] HospitalCziaducJFSGLMNECUFD5902-00-28 15:01:00 Test Item Value Reference Range Interpretation Comments POC Hematocrit (test code = POC 31.0 42.0-54.0 Hematocrit) [facility] HospitalQvuuwgfCKFDLFYZNXPA5294-16-99 15:01:00 Test Item Value Reference Range Interpretation Comments POC Hemoglobin (test code = POC 10.5 14.0-18.0 Hemoglobin) [facility] HospitalLrcxpciSCKOWQHTRNOY4051-74-17 15:01:00 Test Item Value Reference Range Interpretation Comments POC Chloride (test code = POC Chloride) 101 95-109 [facility] HospitalRlidkvqZAWHZGAUBTGT6789-42-71 15:01:00 Test Item Value Reference Range Interpretation Comments POC Potassium (test code = POC 4.7 3.5-5.1 Potassium) [facility] HospitalYwceekgSQMGHKQYBOPJ7854-38-18 15:01:00 Test Item Value Reference Range Interpretation Comments POC Glucose (test code = POC Glucose) 94 70-99 [facility] HospitalCruhkfpCSPCLQGYVPRJ9721-00-38 15:01:00 Test Item Value Reference Range Interpretation Comments POC BUN (test code = POC BUN) 15 04-19 [facility] HospitalYhupdjhCHUXSGZHTYMQ6310-20-27 15:01:00 Test Item Value Reference Range Interpretation Comments POC Sodium (test code = POC Sodium) 135 135-145 [facility] HospitalHerfmlxFLOPQWSGBVZK0193-56-75 15:01:00 Test Item Value Reference Range Interpretation Comments POC Hematocrit (test code = POC 31.0 42.0-54.0 Hematocrit) [facility] HospitalAhsqhabSYUBHLWXLHSX9294-55-24 15:01:00 Test Item Value Reference Range Interpretation Comments POC Hemoglobin (test code = POC 10.5 14.0-18.0 Hemoglobin) [facility] HospitalXuiotxyLSHDUTNKSHAV8257-63-79 15:01:00 Test Item Value Reference Range Interpretation Comments POC Chloride (test code = POC Chloride) 101 95-109 [facility] HospitalJtrrfkwEUDJDSYBAGTX2876-76-92 15:01:00 Test Item Value Reference Range Interpretation Comments POC Potassium (test code = POC 4.7 3.5-5.1 Potassium) [facility] HospitalThgmrcjICPSFGCVLCHX2044-39-74 15:01:00 Test Item Value Reference Range Interpretation Comments POC Glucose (test code = POC Glucose) 94 70-99 [facility] HospitalJmwgbtpVUSFAKQVEAJP9229-72-49 15:01:00 Test Item Value Reference Range Interpretation Comments POC BUN (test code = POC BUN) 04-19 [facility]VclszqxXHWATYQSYE4726-94-17 21:42:00 Test Item Value Reference Range Interpretation Comments Hep B Core Ab (test Negative *NA*(04/10/17 code = Hep B Core Ab) 4:42 PM) [facility] CenterYevepkpMHNPDSUEYQ3524-21-34 21:42:00 Test Item Value Reference Range Interpretation Comments Hep Bs Ag (test code Negative *NA*(04/10/17 = Hep Bs Ag) 4:42 PM) [facility] CenterOhvxplxSZOFFSROSW1145-61-21 21:42:00 Test Item Value Reference Range Interpretation Comments Hep C Ab (test code = Positive *ABN*(04/10/17 Hep C Ab) 4:42 PM) [facility] CenterLuoayvaVKDDHBGHWQ7203-88-19 21:42:00 Test Item Value Reference Range Interpretation Comments Hep Bs Ab (test code = Hep Bs Ab) no gt [facility] CenterZowzcvbYNXKVVLKIA5885-61-48 21:42:00 Test Item Value Reference Range Interpretation Comments Hep B Core Ab (test Negative *NA*(04/10/17 code = Hep B Core Ab) 4:42 PM) [facility] DistrictFgsufrhEYKAOCUDPY7407-53-95 21:42:00 Test Item Value Reference Range Interpretation Comments Hep Bs Ag (test code Negative *NA*(04/10/17 = Hep Bs Ag) 4:42 PM) [facility] CenterWkgelleLTSQXURYND9513-10-56 21:42:00 Test Item Value Reference Range Interpretation Comments Hep C Ab (test code = Positive *ABN*(04/10/17 Hep C Ab) 4:42 PM) [facility] CenterCfqhkhmQLLYXPFTQW9459-84-05 21:42:00 Test Item Value Reference Range Interpretation Comments Hep Bs Ab (test code = Hep Bs Ab) no gt [facility] CenterLkwzukvYZDDRXNMAL5126-97-86 21:42:00 Test Item Value Reference Range Interpretation Comments Hep B Core Ab (test Negative *NA*(04/10/17 code = Hep B Core Ab) 4:42 PM) [facility] CenterCgndrcvIVALBOXGRT9861-40-69 21:42:00 Test Item Value Reference Range Interpretation Comments Hep Bs Ag (test code Negative *NA*(04/10/17 = Hep Bs Ag) 4:42 PM) [facility] CenterJfrhprcGVHUQFJASF0430-73-35 21:42:00 Test Item Value Reference Range Interpretation Comments Hep C Ab (test code = Positive *ABN*(04/10/17 Hep C Ab) 4:42 PM) [facility] CenterFzzlrviIFBCKSTFBT3034-64-15 21:42:00 Test Item Value Reference Range Interpretation Comments Hep Bs Ab (test code = Hep Bs Ab) no gt [facility]2017-07-13 00:27:00 Test Item Value Reference Range Interpretation Comments eGFR (test code = eGFR) 5 [facility]2017-07-13 00:27:00 Test Item Value Reference Range Interpretation Comments Glucose Lvl (test code = Glucose Lvl) 90 70-99 [facility]2017-07-13 00:27:00 Test Item Value Reference Range Interpretation Comments BUN (test code = BUN) 66 7-22 [facility]2017-07-13 00:27:00 Test Item Value Reference Range Interpretation Comments Creatinine Lvl (test code = Creatinine 10.00 0.50-1.40 Lvl) [facility]2017-07-13 00:27:00 Test Item Value Reference Range Interpretation Comments Sodium Lvl (test code = Sodium Lvl) 136 135-145 [facility] CenterItalia OnlineTRANSYLVANIA REGIONAL HOSPITALISOFF1423-44-08 00:27:00 Test Item Value Reference Range Interpretation Comments ALT (test code = ALT) 23 See_Comment [Auto mated message] The system which ge nerated this result transmit cruz reference range : <=65. The reference range was not used to interpr et this result as gee l/abnormal. [facility] BKIGK2436-36-69 00:27:00 Test Item Value Reference Range Interpretation Comments Alk Phos (test code = Alk Phos) 140 39-136 [facility] GFOYL4580-37-84 00:27:00 Test Item Value Reference Range Interpretation Comments AST (test code = AST) 10 See_Comment [Auto mated message] The system which ge nerated this result transmit cruz reference range : <=37. The reference range was not used to interpr et this result as gee l/abnormal. [facility] TMKLV6400-06-90 00:27:00 Test Item Value Reference Range Interpretation Comments Bili Total (test code = Bili Total) 0.2 0.2-1.3 [facility] JPYJE2226-04-55 00:27:00 Test Item Value Reference Range Interpretation Comments Chloride Lvl (test code = Chloride Lvl) 104 95-109 [facility] TAMNH9835-04-49 00:27:00 Test Item Value Reference Range Interpretation Comments Potassium Lvl (test code = Potassium 4.6 3.5-5.1 Lvl) [facility] CHGVG8113-04-22 00:27:00 Test Item Value Reference Range Interpretation Comments CO2 (test code = CO2) 20 24-32 [facility] HFKGE9850-65-67 00:27:00 Test Item Value Reference Range Interpretation Comments Calcium Lvl (test code = Calcium Lvl) 8.1 8.5-10.5 [facility] WNUGK2599-97-13 00:27:00 Test Item Value Reference Range Interpretation Comments Total Protein (test code = Total 8.0 6.4-8.4 Protein) [facility] ZIICJ2676-35-02 00:27:00 Test Item Value Reference Range Interpretation Comments Albumin Lvl (test code = Albumin Lvl) 3.4 3.5-5.0 [facility]2017-07-13 00:27:00 Test Item Value Reference Range Interpretation Comments AGAP (test code = AGAP) 16.6 10.0-20.0 [facility]2017-07-13 00:27:00 Test Item Value Reference Range Interpretation Comments B/C Ratio (test code = B/C Ratio) 7 6-25 [facility]2017-07-13 00:27:00 Test Item Value Reference Range Interpretation Comments Globulin (test code = Globulin) 4.6 2.7-4.2 [facility]2017-07-13 00:27:00 Test Item Value Reference Range Interpretation Comments A/G Ratio (test code = A/G Ratio) 0.7 0.7-1.6 [facility]JqyuxfrGVDWNCDJWA2238-56-88 00:27:00 Test Item Value Reference Range Interpretation Comments MPV (test code = MPV) 9.3 7.4-10.4 [facility] HospitalQnvygthYMEUDRYVQS0833-66-44 00:27:00 Test Item Value Reference Range Interpretation Comments Hct (test code = Hct) 32.4 42.0-54.0 [facility] HospitalSjjnxuwNAAIDVYHNN9145-44-93 00:27:00 Test Item Value Reference Range Interpretation Comments MCV (test code = MCV) 88.9 80.0-94.0 [facility] HospitalLreuyegCOWSYVUMYM9927-52-09 00:27:00 Test Item Value Reference Range Interpretation Comments MCH (test code = MCH) 29.5 pg 27.0-31.0 [facility] HospitalIinbdruKSEIHGCECR1870-40-93 00:27:00 Test Item Value Reference Range Interpretation Comments Platelet (test code = Platelet) 216 133-450 [facility] HospitalVluanawQBVIZCOHUA4598-63-21 00:27:00 Test Item Value Reference Range Interpretation Comments MCHC (test code = MCHC) 33.1 32.0-36.0 [facility] HospitalGbtxvdrOFQKDCDWIS7556-83-91 00:27:00 Test Item Value Reference Range Interpretation Comments RDW (test code = RDW) 12.6 11.5-14.5 [facility] HospitalVirmnspGONDVYIHRW9000-89-16 00:27:00 Test Item Value Reference Range Interpretation Comments Hgb (test code = Hgb) 10.7 14.0-18.0 [facility] HospitalEjjrdmgMKVRUTQXGV2678-26-79 00:27:00 Test Item Value Reference Range Interpretation Comments RBC (test code = RBC) 3.65 4.70-6.10 [facility] HospitalUxnprfaBCUFLONFMM8874-62-31 00:27:00 Test Item Value Reference Range Interpretation Comments WBC (test code = WBC) 8.8 3.7-10.4 [facility] HospitalJbitwuoUPKIVSUSEC6709-23-27 00:27:00 Test Item Value Reference Range Interpretation Comments Basophils # (test code 0.0 See_Comment [Aut omated message] The = Basophils #) system which generated this result tra nsmitted reference range : <=0.2. The reference r jillian was not used to int erpret this result as normal/abnormal . [facility] HospitalEwhnynaPEVQYBYAJO2727-45-41 00:27:00 Test Item Value Reference Range Interpretation Comments Eosinophils # (test code 0.1 See_Comment [A utomated message] The = Eosinophils #) system whic h generated this result tra nsmitted reference range : <=0.5. The reference r jillian was not used to int erpret this result as normal/abnormal . [facility] HospitalBsugimmBVJECYXREC5674-52-60 00:27:00 Test Item Value Reference Range Interpretation Comments Monocytes # (test code 0.5 See_Comment [Aut omated message] The = Monocytes #) system which generated this result tra nsmitted reference range : <=0.8. The reference r jillian was not used to int erpret this result as normal/abnormal . [facility] HospitalOjkmpicYQYJUPTLMR5974-78-36 00:27:00 Test Item Value Reference Range Interpretation Comments Lymphocytes # (test code = Lymphocytes 1.3 1.0-5.5 #) [facility] HospitalNboyscwEHBBHNMOTH5389-75-74 00:27:00 Test Item Value Reference Range Interpretation Comments Segs (test code = Segs) 78.2 45.0-75.0 [facility] HospitalVtkajzvUZCDBDASRS3445-35-81 00:27:00 Test Item Value Reference Range Interpretation Comments Lymphocytes (test code = Lymphocytes) 14.8 20.0-40.0 [facility] HospitalVnsigirWEBPGXQETE9582-55-94 00:27:00 Test Item Value Reference Range Interpretation Comments Monocytes (test code = Monocytes) 5.8 2.0-12.0 [facility] HospitalJrqnkjoJDDEJKTXQE2099-29-11 00:27:00 Test Item Value Reference Range Interpretation Comments Segs-Bands # (test code = Segs-Bands #) 6.8 1.5-8.1 [facility] HospitalIorhswnIYIVLYPMFL5898-76-26 00:27:00 Test Item Value Reference Range Interpretation Comments Basophils (test code = 0.3 See_Comment [Aut omated message] The Basophils) system which ge nerated this result tra nsmitted reference range : <=1.0. The reference r jillian was not used to int erpret this result as normal/abnormal . [facility] HospitalMoxuwugMYWYPPLTSG2131-77-66 00:27:00 Test Item Value Reference Range Interpretation Comments Eosinophils (test code = 0.9 See_Comment [A utomated message] The Eosinophils) system which ge nerated this result tra nsmitted reference range : <=4.0. The reference r jillian was not used to int erpret this result as normal/abnormal . [facility]2017-07-13 00:27:00 Test Item Value Reference Range Interpretation Comments eGFR (test code = eGFR) 5 [facility]2017-07-13 00:27:00 Test Item Value Reference Range Interpretation Comments Glucose Lvl (test code = Glucose Lvl) 90 70-99 [facility]2017-07-13 00:27:00 Test Item Value Reference Range Interpretation Comments BUN (test code = BUN) 66 7-22 [facility]2017-07-13 00:27:00 Test Item Value Reference Range Interpretation Comments Creatinine Lvl (test code = Creatinine 10.00 0.50-1.40 Lvl) [facility]2017-07-13 00:27:00 Test Item Value Reference Range Interpretation Comments Sodium Lvl (test code = Sodium Lvl) 136 135-145 [place] [id number] 00:27:00 Test Item Value Reference Range Interpretation Comments ALT (test code = ALT) 23 See_Comment [Auto mated message] The system which ge nerated this result transmit cruz reference range : <=65. The reference range was not used to interpr et this result as gee l/abnormal. [facility]2017-07-13 00:27:00 Test Item Value Reference Range Interpretation Comments Alk Phos (test code = Alk Phos) 140 39-136 [facility]2017-07-13 00:27:00 Test Item Value Reference Range Interpretation Comments AST (test code = AST) 10 See_Comment [Auto mated message] The system which ge nerated this result transmit cruz reference range : <=37. The reference range was not used to interpr et this result as gee l/abnormal. [facility]2017-07-13 00:27:00 Test Item Value Reference Range Interpretation Comments Bili Total (test code = Bili Total) 0.2 0.2-1.3 [facility]2017-07-13 00:27:00 Test Item Value Reference Range Interpretation Comments Chloride Lvl (test code = Chloride Lvl) 104 95-109 [facility]2017-07-13 00:27:00 Test Item Value Reference Range Interpretation Comments Potassium Lvl (test code = Potassium 4.6 3.5-5.1 Lvl) [facility]2017-07-13 00:27:00 Test Item Value Reference Range Interpretation Comments CO2 (test code = CO2) 20 24-32 [facility]2017-07-13 00:27:00 Test Item Value Reference Range Interpretation Comments Calcium Lvl (test code = Calcium Lvl) 8.1 8.5-10.5 [facility] CenterItalia OnlineTRANSYLVANIA REGIONAL HOSPITALZNVXX9826-53-66 00:27:00 Test Item Value Reference Range Interpretation Comments Total Protein (test code = Total 8.0 6.4-8.4 Protein) [facility]2017-07-13 00:27:00 Test Item Value Reference Range Interpretation Comments Albumin Lvl (test code = Albumin Lvl) 3.4 3.5-5.0 [facility]2017-07-13 00:27:00 Test Item Value Reference Range Interpretation Comments AGAP (test code = AGAP) 16.6 10.0-20.0 [facility] CenterItalia OnlineTRANSYLVANIA REGIONAL HOSPITALTHZEN5379-39-80 00:27:00 Test Item Value Reference Range Interpretation Comments B/C Ratio (test code = B/C Ratio) 7 6-25 [facility]2017-07-13 00:27:00 Test Item Value Reference Range Interpretation Comments Globulin (test code = Globulin) 4.6 2.7-4.2 [facility] DistrictU[facility] FEQWE1555-06-22 00:27:00 Test Item Value Reference Range Interpretation Comments A/G Ratio (test code = A/G Ratio) 0.7 0.7-1.6 [facility] HospitalCcenszeOYPREDVSPX0723-27-15 00:27:00 Test Item Value Reference Range Interpretation Comments MPV (test code = MPV) 9.3 7.4-10.4 [facility]LlxzgobNHYKDZWKSO0141-80-91 00:27:00 Test Item Value Reference Range Interpretation Comments Hct (test code = Hct) 32.4 42.0-54.0 [facility]QmbzktrGVQFVFPLVQ1373-20-84 00:27:00 Test Item Value Reference Range Interpretation Comments MCV (test code = MCV) 88.9 80.0-94.0 [facility] HospitalNnkldetYNNHCZIUQP3260-82-20 00:27:00 Test Item Value Reference Range Interpretation Comments MCH (test code = MCH) 29.5 pg 27.0-31.0 [facility] HospitalLrrahpiNXAIYXOOLN5967-52-58 00:27:00 Test Item Value Reference Range Interpretation Comments Platelet (test code = Platelet) 216 133-450 [facility] HospitalFiwwgdqNIJTZKUOIW8272-87-36 00:27:00 Test Item Value Reference Range Interpretation Comments MCHC (test code = MCHC) 33.1 32.0-36.0 [facility] HospitalMraafsdNLWIPYBZQE9339-28-42 00:27:00 Test Item Value Reference Range Interpretation Comments RDW (test code = RDW) 12.6 11.5-14.5 [facility] HospitalLuriguaRKOYJNSCSV6784-49-18 00:27:00 Test Item Value Reference Range Interpretation Comments Hgb (test code = Hgb) 10.7 14.0-18.0 [facility] HospitalEobsgxvPHKKCLCDEY8849-03-21 00:27:00 Test Item Value Reference Range Interpretation Comments RBC (test code = RBC) 3.65 4.70-6.10 [facility] HospitalQdixrmhLESQFRPGAC6274-31-56 00:27:00 Test Item Value Reference Range Interpretation Comments WBC (test code = WBC) 8.8 3.7-10.4 [facility] HospitalOeiciphWHULCCOUVE0242-95-03 00:27:00 Test Item Value Reference Range Interpretation Comments Basophils # (test code 0.0 See_Comment [Aut omated message] The = Basophils #) system which generated this result tra nsmitted reference range : <=0.2. The reference r jillian was not used to int erpret this result as normal/abnormal . [facility] HospitalZywwbjzEBJBVSWOFS1515-91-41 00:27:00 Test Item Value Reference Range Interpretation Comments Eosinophils # (test code 0.1 See_Comment [A utomated message] The = Eosinophils #) system whic h generated this result tra nsmitted reference range : <=0.5. The reference r jillian was not used to int erpret this result as normal/abnormal . [facility] HospitalZtyikspEHZDTQOKAU9847-43-94 00:27:00 Test Item Value Reference Range Interpretation Comments Monocytes # (test code 0.5 See_Comment [Aut omated message] The = Monocytes #) system which generated this result tra nsmitted reference range : <=0.8. The reference r jillian was not used to int erpret this result as normal/abnormal . [facility] HospitalDfwkoyrGAVXPYCVXN4148-57-90 00:27:00 Test Item Value Reference Range Interpretation Comments Lymphocytes # (test code = Lymphocytes 1.3 1.0-5.5 #) [facility] HospitalPeahmxfGDAQLHFHZD3130-56-68 00:27:00 Test Item Value Reference Range Interpretation Comments Segs (test code = Segs) 78.2 45.0-75.0 [facility] HospitalYijkyqsHGNSRAKIPQ6092-46-86 00:27:00 Test Item Value Reference Range Interpretation Comments Lymphocytes (test code = Lymphocytes) 14.8 20.0-40.0 [facility] HospitalQrspikqWVEURUFISK2079-59-34 00:27:00 Test Item Value Reference Range Interpretation Comments Monocytes (test code = Monocytes) 5.8 2.0-12.0 [facility] HospitalRchquzjIJQMSBGLIO7282-79-11 00:27:00 Test Item Value Reference Range Interpretation Comments Segs-Bands # (test code = Segs-Bands #) 6.8 1.5-8.1 [facility] HospitalCdtaytaOGFHFIHPVO1446-26-73 00:27:00 Test Item Value Reference Range Interpretation Comments Basophils (test code = 0.3 See_Comment [Aut omated message] The Basophils) system which ge nerated this result tra nsmitted reference range : <=1.0. The reference r jillian was not used to int erpret this result as normal/abnormal . [facility] HospitalWddnhigOOJRHWVJMA9284-54-69 00:27:00 Test Item Value Reference Range Interpretation Comments Eosinophils (test code = 0.9 See_Comment [A utomated message] The Eosinophils) system which ge nerated this result tra nsmitted reference range : <=4.0. The reference r jillian was not used to int erpret this result as normal/abnormal . [facility]2017-07-13 00:27:00 Test Item Value Reference Range Interpretation Comments eGFR (test code = eGFR) 5 [facility]2017-07-13 00:27:00 Test Item Value Reference Range Interpretation Comments Glucose Lvl (test code = Glucose Lvl) 90 70-99 [facility]2017-07-13 00:27:00 Test Item Value Reference Range Interpretation Comments BUN (test code = BUN) 66 7-22 [facility]2017-07-13 00:27:00 Test Item Value Reference Range Interpretation Comments Creatinine Lvl (test code = Creatinine 10.00 0.50-1.40 Lvl) [facility]2017-07-13 00:27:00 Test Item Value Reference Range Interpretation Comments Sodium Lvl (test code = Sodium Lvl) 136 135-145 [facility]2017-07-13 00:27:00 Test Item Value Reference Range Interpretation Comments ALT (test code = ALT) 23 See_Comment [Auto mated message] The system which ge nerated this result transmit cruz reference range : <=65. The reference range was not used to interpr et this result as gee l/abnormal. [facility]2017-07-13 00:27:00 Test Item Value Reference Range Interpretation Comments Alk Phos (test code = Alk Phos) 140 39-136 [facility]2017-07-13 00:27:00 Test Item Value Reference Range Interpretation Comments AST (test code = AST) 10 See_Comment [Auto mated message] The system which ge nerated this result transmit cruz reference range : <=37. The reference range was not used to interpr et this result as gee l/abnormal. [facility]2017-07-13 00:27:00 Test Item Value Reference Range Interpretation Comments Bili Total (test code = Bili Total) 0.2 0.2-1.3 [facility]2017-07-13 00:27:00 Test Item Value Reference Range Interpretation Comments Chloride Lvl (test code = Chloride Lvl) 104 95-109 [facility]2017-07-13 00:27:00 Test Item Value Reference Range Interpretation Comments Potassium Lvl (test code = Potassium 4.6 3.5-5.1 Lvl) [facility]2017-07-13 00:27:00 Test Item Value Reference Range Interpretation Comments CO2 (test code = CO2) 20 24-32 [facility]2017-07-13 00:27:00 Test Item Value Reference Range Interpretation Comments Calcium Lvl (test code = Calcium Lvl) 8.1 8.5-10.5 [facility]2017-07-13 00:27:00 Test Item Value Reference Range Interpretation Comments Total Protein (test code = Total 8.0 6.4-8.4 Protein) [facility]2017-07-13 00:27:00 Test Item Value Reference Range Interpretation Comments Albumin Lvl (test code = Albumin Lvl) 3.4 3.5-5.0 [facility]2017-07-13 00:27:00 Test Item Value Reference Range Interpretation Comments AGAP (test code = AGAP) 16.6 10.0-20.0 [facility]2017-07-13 00:27:00 Test Item Value Reference Range Interpretation Comments B/C Ratio (test code = B/C Ratio) 7 6-25 [facility]2017-07-13 00:27:00 Test Item Value Reference Range Interpretation Comments Globulin (test code = Globulin) 4.6 2.7-4.2 [facility]2017-07-13 00:27:00 Test Item Value Reference Range Interpretation Comments A/G Ratio (test code = A/G Ratio) 0.7 0.7-1.6 [facility] HospitalCayxqabBGEHAKVEEW0952-82-27 00:27:00 Test Item Value Reference Range Interpretation Comments MPV (test code = MPV) 9.3 7.4-10.4 [facility] HospitalJhfptilWVINAGOFHW8811-74-10 00:27:00 Test Item Value Reference Range Interpretation Comments Hct (test code = Hct) 32.4 42.0-54.0 [facility] HospitalDztnqrdRAIOLVRUSY1255-39-84 00:27:00 Test Item Value Reference Range Interpretation Comments MCV (test code = MCV) 88.9 80.0-94.0 [place] 37484-07-13 00:27:00 Test Item Value Reference Range Interpretation Comments MCH (test code = MCH) 29.5 pg 27.0-31.0 [facility] HospitalHnyicpsGKKJQSUEQP8766-33-30 00:27:00 Test Item Value Reference Range Interpretation Comments Platelet (test code = Platelet) 216 133-450 [facility] HospitalIslwwieQVDYVSOLCO1127-30-87 00:27:00 Test Item Value Reference Range Interpretation Comments MCHC (test code = MCHC) 33.1 32.0-36.0 [facility] HospitalXhzqbbnRTESNWQIKA0447-07-75 00:27:00 Test Item Value Reference Range Interpretation Comments RDW (test code = RDW) 12.6 11.5-14.5 [facility] HospitalZijbrozUUOXROYGBG8611-40-55 00:27:00 Test Item Value Reference Range Interpretation Comments Hgb (test code = Hgb) 10.7 14.0-18.0 [facility] HospitalFhnwmxyLULFLZVQUP6238-38-45 00:27:00 Test Item Value Reference Range Interpretation Comments RBC (test code = RBC) 3.65 4.70-6.10 [facility] HospitalSfdijnwUIRDJNVGPG2874-02-41 00:27:00 Test Item Value Reference Range Interpretation Comments WBC (test code = WBC) 8.8 3.7-10.4 [facility] HospitalJnlekavAGMPVHGHFU6763-87-94 00:27:00 Test Item Value Reference Range Interpretation Comments Basophils # (test code 0.0 See_Comment [Aut omated message] The = Basophils #) system which generated this result tra nsmitted reference range : <=0.2. The reference r jillian was not used to int erpret this result as normal/abnormal . [facility] HospitalOmzwjuoIPVAAGIRDH1660-87-75 00:27:00 Test Item Value Reference Range Interpretation Comments Eosinophils # (test code 0.1 See_Comment [A utomated message] The = Eosinophils #) system whic h generated this result tra nsmitted reference range : <=0.5. The reference r jillian was not used to int erpret this result as normal/abnormal . [facility] HospitalJmbqprfPDYUWURSAQ3134-54-76 00:27:00 Test Item Value Reference Range Interpretation Comments Monocytes # (test code 0.5 See_Comment [Aut omated message] The = Monocytes #) system which generated this result tra nsmitted reference range : <=0.8. The reference r jillian was not used to int erpret this result as normal/abnormal . [facility] HospitalIdqfeqwRCCPWSAUJW0209-30-52 00:27:00 Test Item Value Reference Range Interpretation Comments Lymphocytes # (test code = Lymphocytes 1.3 1.0-5.5 #) [facility] HospitalRajtwcbUBBGDJGSYZ8781-40-67 00:27:00 Test Item Value Reference Range Interpretation Comments Segs (test code = Segs) 78.2 45.0-75.0 [facility] HospitalXsigaelGTADXPUTJL1335-08-80 00:27:00 Test Item Value Reference Range Interpretation Comments Lymphocytes (test code = Lymphocytes) 14.8 20.0-40.0 [facility] HospitalQuboihkMQUHHCFSVT7333-65-35 00:27:00 Test Item Value Reference Range Interpretation Comments Monocytes (test code = Monocytes) 5.8 2.0-12.0 [facility] HospitalPvoymxoTBIHTHKFXR7563-04-01 00:27:00 Test Item Value Reference Range Interpretation Comments Segs-Bands # (test code = Segs-Bands #) 6.8 1.5-8.1 [facility] HospitalRnsfzpkOODZNZTJML3283-93-19 00:27:00 Test Item Value Reference Range Interpretation Comments Basophils (test code = 0.3 See_Comment [Aut omated message] The Basophils) system which ge nerated this result tra nsmitted reference range : <=1.0. The reference r jillian was not used to int erpret this result as normal/abnormal . [facility] HospitalGvsonskDFXAVBLQNC9092-37-47 00:27:00 Test Item Value Reference Range Interpretation Comments Eosinophils (test code = 0.9 See_Comment [A utomated message] The Eosinophils) system which ge nerated this result tra nsmitted reference range : <=4.0. The reference r jillian was not used to int erpret this result as normal/abnormal . [facility]2017-07-12 22:46:00 Test Item Value Reference Range Interpretation Comments eGFR (test code = eGFR) 5 [facility]2017-07-12 22:46:00 Test Item Value Reference Range Interpretation Comments Glucose Lvl (test code = Glucose Lvl) 89 70-99 [facility]2017-07-12 22:46:00 Test Item Value Reference Range Interpretation Comments Sodium Lvl (test code = Sodium Lvl) 134 135-145 [facility]2017-07-12 22:46:00 Test Item Value Reference Range Interpretation Comments BUN (test code = BUN) 65 7-22 [facility]2017-07-12 22:46:00 Test Item Value Reference Range Interpretation Comments Potassium Lvl (test code = Potassium 4.6 3.5-5.1 Lvl) [facility]2017-07-12 22:46:00 Test Item Value Reference Range Interpretation Comments Calcium Lvl (test code = Calcium Lvl) 8.4 8.5-10.5 [facility]2017-07-12 22:46:00 Test Item Value Reference Range Interpretation Comments Chloride Lvl (test code = Chloride Lvl) 104 95-109 [facility]2017-07-12 22:46:00 Test Item Value Reference Range Interpretation Comments CO2 (test code = CO2) 21 24-32 [facility]2017-07-12 22:46:00 Test Item Value Reference Range Interpretation Comments Creatinine Lvl (test code = Creatinine 10.00 0.50-1.40 Lvl) [facility]2017-07-12 22:46:00 Test Item Value Reference Range Interpretation Comments AGAP (test code = AGAP) 13.6 10.0-20.0 [facility]2017-07-12 22:46:00 Test Item Value Reference Range Interpretation Comments eGFR (test code = eGFR) 5 [facility]2017-07-12 22:46:00 Test Item Value Reference Range Interpretation Comments Glucose Lvl (test code = Glucose Lvl) 89 70-99 [facility]2017-07-12 22:46:00 Test Item Value Reference Range Interpretation Comments Sodium Lvl (test code = Sodium Lvl) 134 135-145 [facility]2017-07-12 22:46:00 Test Item Value Reference Range Interpretation Comments BUN (test code = BUN) 65 7-22 [facility]2017-07-12 22:46:00 Test Item Value Reference Range Interpretation Comments Potassium Lvl (test code = Potassium 4.6 3.5-5.1 Lvl) [facility]2017-07-12 22:46:00 Test Item Value Reference Range Interpretation Comments Calcium Lvl (test code = Calcium Lvl) 8.4 8.5-10.5 [facility]2017-07-12 22:46:00 Test Item Value Reference Range Interpretation Comments Chloride Lvl (test code = Chloride Lvl) 104 95-109 [facility]2017-07-12 22:46:00 Test Item Value Reference Range Interpretation Comments CO2 (test code = CO2) [facility]2017-07-12 22:46:00 Test Item Value Reference Range Interpretation Comments Creatinine Lvl (test code = Creatinine 10.00 0.50-1.40 Lvl) [facility]2017-07-12 22:46:00 Test Item Value Reference Range Interpretation Comments AGAP (test code = AGAP) 13.6 10.0-20.0 [facility]2017-07-12 22:46:00 Test Item Value Reference Range Interpretation Comments eGFR (test code = eGFR) 5 [facility]2017-07-12 22:46:00 Test Item Value Reference Range Interpretation Comments Glucose Lvl (test code = Glucose Lvl) 89 70-99 [facility]2017-07-12 22:46:00 Test Item Value Reference Range Interpretation Comments Sodium Lvl (test code = Sodium Lvl) 134 135-145 [facility]2017-07-12 22:46:00 Test Item Value Reference Range Interpretation Comments BUN (test code = BUN) 65 7-22 [facility]2017-07-12 22:46:00 Test Item Value Reference Range Interpretation Comments Potassium Lvl (test code = Potassium 4.6 3.5-5.1 Lvl) [facility]2017-07-12 22:46:00 Test Item Value Reference Range Interpretation Comments Calcium Lvl (test code = Calcium Lvl) 8.4 8.5-10.5 [facility]2017-07-12 22:46:00 Test Item Value Reference Range Interpretation Comments Chloride Lvl (test code = Chloride Lvl) 104 95-109 [facility]2017-07-12 22:46:00 Test Item Value Reference Range Interpretation Comments CO2 (test code = CO2) - [facility]2017-07-12 22:46:00 Test Item Value Reference Range Interpretation Comments Creatinine Lvl (test code = Creatinine 10.00 0.50-1.40 Lvl) [facility]2017-07-12 22:46:00 Test Item Value Reference Range Interpretation Comments AGAP (test code = AGAP) 13.6 10.0-20.0 [facility]SaaqfamNVSGJAKNAQ2705-[facility]-04 20:03:00 Test Item Value Reference Range Interpretation Comments Hep Bs Ag (test code Negative *NA*(03/17/17 = Hep Bs Ag) 3:03 PM) [facility] CenterUqfsfyeLNRHEONIMZ4618-50-37 20:03:00 Test Item Value Reference Range Interpretation Comments Hep C Ab (test code = Positive *ABN*(03/17/17 Hep C Ab) 3:03 PM) [facility]HilaabnYMEAAMWXYJ4929-41-85 20:03:00 Test Item Value Reference Range Interpretation Comments Hep A IgM (test code Negative *NA*(03/17/17 = Hep A IgM) 3:03 PM) [facility] DistrictKoastlqKXYHIFOYGC3504-73-88 20:03:00 Test Item Value Reference Range Interpretation Comments Hep B Core IgM (test Negative *NA*(03/17/17 code = Hep B Core 3:03 PM) IgM) [facility] DistrictEizcklbBHUFBSHOGP5968-22-80 20:03:00 Test Item Value Reference Range Interpretation Comments Hep Bs Ag (test code Negative *NA*(03/17/17 = Hep Bs Ag) 3:03 PM) [facility] DistrictRpwtyqgSAGSKOLQFV2424-54-32 20:03:00 Test Item Value Reference Range Interpretation Comments Hep C Ab (test code = Positive *ABN*(03/17/17 Hep C Ab) 3:03 PM) [facility] CenterMwdldjaTXHAHKGQPI2403-99-69 20:03:00 Test Item Value Reference Range Interpretation Comments Hep A IgM (test code Negative *NA*(03/17/17 = Hep A IgM) 3:03 PM) [facility] CenterBjxczbxCWHSOVGXJN5528-59-77 20:03:00 Test Item Value Reference Range Interpretation Comments Hep B Core IgM (test Negative *NA*(03/17/17 code = Hep B Core 3:03 PM) IgM) [facility] DistrictXctmfukABXSBUPIPG6185-42-73 20:03:00 Test Item Value Reference Range Interpretation Comments Hep Bs Ag (test code Negative *NA*(6/19/17 = Hep Bs Ag) 3:03 PM) [facility]AiswhlwCDWSUGSDBQ0853-18-96 20:03:00 Test Item Value Reference Range Interpretation Comments Hep C Ab (test code = Positive *ABN*(03/17/17 Hep C Ab) 3:03 PM) [facility] CenterZuxdejkSSKOEKJVWX9550-59-05 20:03:00 Test Item Value Reference Range Interpretation Comments Hep A IgM (test code Negative *NA*(03/17/17 = Hep A IgM) 3:03 PM) [facility] CenterDtmeargWVYDDZPSLR6388-75-39 20:03:00 Test Item Value Reference Range Interpretation Comments Hep B Core IgM (test Negative *NA*(03/17/17 code = Hep B Core 3:03 PM) IgM) [facility] CenterJoamrofSSNTYKCTOM7347-05-74 16:52:00 Test Item Value Reference Range Interpretation Comments Hep Bs Ab (test code = Hep Bs Ab) no [facility]2017-06-19 16:52:00 Test Item Value Reference Range Interpretation Comments Hep Bs Ab (test code = Hep Bs Ab) no [facility]2017-06-19 16:52:00 Test Item Value Reference Range Interpretation Comments Hep Bs Ab (test code = Hep Bs Ab) no [facility]2017-06-16 10:52:00 Test Item Value Reference Range Interpretation Comments AGAP (test code = AGAP) 14.8 10.0-20.0 [facility]ref[facility]IGFGDKKLQMNC0035-18-09 10:52:00 Test Item Value Reference Range Interpretation Comments eGFR (test code = eGFR) 8 [facility] HospitalNnmwicfYHXLVRQQCMKN4461-18-40 10:52:00 Test Item Value Reference Range Interpretation Comments Calcium Lvl (test code = Calcium Lvl) 7.6 8.5-10.5 [facility] HospitalCryyhfdUJCAYXZHLGRN8397-35-02 10:52:00 Test Item Value Reference Range Interpretation Comments Glucose Lvl (test code = Glucose Lvl) 105 70-99 [facility] HospitalSwfflmiIJYVYJYUDUCL3764-20-71 10:52:00 Test Item Value Reference Range Interpretation Comments BUN (test code = BUN) 39 7-22 [facility] HospitalSoqswzxTXBVTBBNNXWD0827-56-70 10:52:00 Test Item Value Reference Range Interpretation Comments Sodium Lvl (test code = Sodium Lvl) 137 135-145 [facility] HospitalNycphivGTNLIYKFDVKP6184-03-10 10:52:00 Test Item Value Reference Range Interpretation Comments Potassium Lvl (test code = Potassium 3.8 3.5-5.1 Lvl) [facility] HospitalYoxzgubSJQHGSDWEUMD8449-40-98 10:52:00 Test Item Value Reference Range Interpretation Comments Creatinine Lvl (test code = Creatinine 7.44 0.50-1.40 Lvl) [facility] HospitalQrhprsePCXSCKEBWBAH0414-86-64 10:52:00 Test Item Value Reference Range Interpretation Comments Chloride Lvl (test code = Chloride Lvl) 100 95-109 [facility] HospitalFydhoiaTPXYKZMAXKFS4343-18-14 10:52:00 Test Item Value Reference Range Interpretation Comments CO2 (test code = CO2) 26 24-32 [facility]MoermojOOJKGCALSS1683-30-94 10:52:00 Test Item Value Reference Range Interpretation Comments Hct (test code = Hct) 35.4 42.0-54.0 [facility] HospitalFapzpjcFRHXXGQZLY2504-48-40 10:52:00 Test Item Value Reference Range Interpretation Comments RBC (test code = RBC) 3.95 4.70-6.10 [facility] HospitalSbngakcPYKWUXFGJE2847-16-23 10:52:00 Test Item Value Reference Range Interpretation Comments Hgb (test code = Hgb) 11.7 14.0-18.0 [facility] HospitalPoflipjAKNYWTLFMK9465-51-72 10:52:00 Test Item Value Reference Range Interpretation Comments WBC (test code = WBC) 8.7 3.7-10.4 [facility] HospitalVnlthcnEJVIMWHFFI2142-81-04 10:52:00 Test Item Value Reference Range Interpretation Comments MPV (test code = MPV) 10.2 7.4-10.4 [facility] HospitalNefjhnzYCPMNRHFFT5739-36-22 10:52:00 Test Item Value Reference Range Interpretation Comments Platelet (test code = Platelet) 176 133-450 [facility] HospitalOxcilddMHENVTWSAQ1626-14-81 10:52:00 Test Item Value Reference Range Interpretation Comments RDW (test code = RDW) 13.2 11.5-14.5 [facility] HospitalKwxgddvFSCWCTTGJD6930-09-50 10:52:00 Test Item Value Reference Range Interpretation Comments MCHC (test code = MCHC) 33.0 32.0-36.0 [facility] HospitalLoduqjeMTPQXRUDOE6563-89-11 10:52:00 Test Item Value Reference Range Interpretation Comments MCV (test code = MCV) 89.6 80.0-94.0 [facility] HospitalDuxzdixHKTNUWPALC1371-96-13 10:52:00 Test Item Value Reference Range Interpretation Comments MCH (test code = MCH) 29.5 pg 27.0-31.0 [facility] HospitalOnzqwucHXLDKKGLHZXF4428-29-65 10:52:00 Test Item Value Reference Range Interpretation Comments AGAP (test code = AGAP) 14.8 10.0-20.0 [facility] HospitalYpytxluIJUCBVILKMUA5928-13-85 10:52:00 Test Item Value Reference Range Interpretation Comments eGFR (test code = eGFR) 8 [facility] HospitalReyvsaqITYJDLFJUHWN5093-65-52 10:52:00 Test Item Value Reference Range Interpretation Comments Calcium Lvl (test code = Calcium Lvl) 7.6 8.5-10.5 [facility] HospitalTpzigtnFSKYFAYPTPTA7218-77-54 10:52:00 Test Item Value Reference Range Interpretation Comments Glucose Lvl (test code = Glucose Lvl) 105 70-99 [facility] HospitalRoblspwFLGLXAIARKEZ8687-35-97 10:52:00 Test Item Value Reference Range Interpretation Comments BUN (test code = BUN) 39 7-22 [facility] HospitalAxjuuzqJMUOVFLBHXAP2710-51-67 10:52:00 Test Item Value Reference Range Interpretation Comments Sodium Lvl (test code = Sodium Lvl) 137 135-145 [facility] HospitalQykfenxDGNYCTOFKVJE8344-04-16 10:52:00 Test Item Value Reference Range Interpretation Comments Potassium Lvl (test code = Potassium 3.8 3.5-5.1 Lvl) [facility] HospitalNkbvjmdLQUCDJBNMCVX9722-86-45 10:52:00 Test Item Value Reference Range Interpretation Comments Creatinine Lvl (test code = Creatinine 7.44 0.50-1.40 Lvl) [facility]BjligsyCELEKFQPFVTZ2709-19-95 10:52:00 Test Item Value Reference Range Interpretation Comments Chloride Lvl (test code = Chloride Lvl) 100 95-109 [facility] HospitalDpgdaybPUJSFHUHAHAT4025-99-94 10:52:00 Test Item Value Reference Range Interpretation Comments CO2 (test code = CO2) 26 24-32 [facility]WerbluoIPJGZMTOWZ1695-85-51 10:52:00 Test Item Value Reference Range Interpretation Comments Hct (test code = Hct) 35.4 42.0-54.0 [facility] HospitalGdbhhluQNGXUDQGWF5367-64-29 10:52:00 Test Item Value Reference Range Interpretation Comments RBC (test code = RBC) 3.95 4.70-6.10 [facility] HospitalBhsylwuPSLDOUUVRR0122-50-11 10:52:00 Test Item Value Reference Range Interpretation Comments Hgb (test code = Hgb) 11.7 14.0-18.0 [facility] HospitalQqrxbhpRMIEUMJHPC5138-01-64 10:52:00 Test Item Value Reference Range Interpretation Comments WBC (test code = WBC) 8.7 3.7-10.4 [facility] HospitalNgugwfqIVTXJDEOVU6473-30-56 10:52:00 Test Item Value Reference Range Interpretation Comments MPV (test code = MPV) 10.2 7.4-10.4 [facility] HospitalUafvxfxIIWNEIKLWH9783-03-52 10:52:00 Test Item Value Reference Range Interpretation Comments Platelet (test code = Platelet) 176 133-450 [facility] HospitalMudoysiBURIVYMIBS3254-78-82 10:52:00 Test Item Value Reference Range Interpretation Comments RDW (test code = RDW) 13.2 11.5-14.5 [facility] HospitalDagbnxdBQPZQFDDTF0795-36-66 10:52:00 Test Item Value Reference Range Interpretation Comments MCHC (test code = MCHC) 33.0 32.0-36.0 [facility] HospitalXhmzypnTRNRFITCIZ1143-04-03 10:52:00 Test Item Value Reference Range Interpretation Comments MCV (test code = MCV) 89.6 80.0-94.0 [facility] HospitalThevpdlPASVZQOHTH0918-19-95 10:52:00 Test Item Value Reference Range Interpretation Comments MCH (test code = MCH) 29.5 pg 27.0-31.0 [facility] HospitalZjhpwqqGMCHJTVQHJFM8670-67-68 10:52:00 Test Item Value Reference Range Interpretation Comments AGAP (test code = AGAP) 14.8 10.0-20.0 [facility] HospitalUfnoueeHJDVCXHBWHMD6803-15-40 10:52:00 Test Item Value Reference Range Interpretation Comments eGFR (test code = eGFR) 8 [facility] HospitalLsyqzvfGRVUCEWNEPOK7794-31-98 10:52:00 Test Item Value Reference Range Interpretation Comments Calcium Lvl (test code = Calcium Lvl) 7.6 8.5-10.5 [facility] HospitalCmzlkxiXCVKXMMWWBRJ6039-12-08 10:52:00 Test Item Value Reference Range Interpretation Comments Glucose Lvl (test code = Glucose Lvl) 105 70-99 [facility] HospitalRihmwhkRWQRDROVINIX5218-02-21 10:52:00 Test Item Value Reference Range Interpretation Comments BUN (test code = BUN) 39 7-22 [facility] HospitalUyzocnmQSTEYDQPTZIN5240-39-40 10:52:00 Test Item Value Reference Range Interpretation Comments Sodium Lvl (test code = Sodium Lvl) 137 135-145 [facility] HospitalYjslpmkLDCXZCTZJWXE0768-38-53 10:52:00 Test Item Value Reference Range Interpretation Comments Potassium Lvl (test code = Potassium 3.8 3.5-5.1 Lvl) [facility] HospitalCozsnotCJRFBOEOPERM0900-21-08 10:52:00 Test Item Value Reference Range Interpretation Comments Creatinine Lvl (test code = Creatinine 7.44 0.50-1.40 Lvl) [facility] HospitalLypnqmgTVFQEPZDZKIE0150-77-50 10:52:00 Test Item Value Reference Range Interpretation Comments Chloride Lvl (test code = Chloride Lvl) 100 95-109 [facility] HospitalYzwlqpbYJCBLLWRWAHF6880-23-77 10:52:00 Test Item Value Reference Range Interpretation Comments CO2 (test code = CO2) 26 24-32 [facility] HospitalIctzoxmNZOXPIYLOU2397-01-70 10:52:00 Test Item Value Reference Range Interpretation Comments Hct (test code = Hct) 35.4 42.0-54.0 [facility] HospitalHijxiekMUFNKXXMLI4431-18-27 10:52:00 Test Item Value Reference Range Interpretation Comments RBC (test code = RBC) 3.95 4.70-6.10 [facility] HospitalZjchteqSTZXPSQDMN8192-01-32 10:52:00 Test Item Value Reference Range Interpretation Comments Hgb (test code = Hgb) 11.7 14.0-18.0 [facility] HospitalGkimmkdNWYIPYOPHD5732-86-38 10:52:00 Test Item Value Reference Range Interpretation Comments WBC (test code = WBC) 8.7 3.7-10.4 [facility] HospitalTcccnlbWKSRVHUSPH0742-83-20 10:52:00 Test Item Value Reference Range Interpretation Comments MPV (test code = MPV) 10.2 7.4-10.4 [facility] HospitalRkpysxsCNDYDBGUSE0544-85-57 10:52:00 Test Item Value Reference Range Interpretation Comments Platelet (test code = Platelet) 176 133-450 [facility] HospitalTbaskdnDVVDOMHHVA2601-14-70 10:52:00 Test Item Value Reference Range Interpretation Comments RDW (test code = RDW) 13.2 11.5-14.5 [facility] HospitalNkgbnmoMCJOZIVRCV4748-13-01 10:52:00 Test Item Value Reference Range Interpretation Comments MCHC (test code = MCHC) 33.0 32.0-36.0 [facility] HospitalDzbkptqKGGBLFZCLU0900-67-78 10:52:00 Test Item Value Reference Range Interpretation Comments MCV (test code = MCV) 89.6 80.0-94.0 [facility] HospitalEdwepnqRUGVAQXXSQ7100-58-05 10:52:00 Test Item Value Reference Range Interpretation Comments MCH (test code = MCH) 29.5 pg 27.0-31.0 [facility]KoxygwhAAWYHCNEIQ1971-25-09 20:06:00 Test Item Value Reference Range Interpretation Comments Hep A IgM (test code Negative *NA*(03/13/17 = Hep A IgM) 3:06 PM) [facility] CenterVodwdgqUBGDJFOSFE7803-21-57 20:06:00 Test Item Value Reference Range Interpretation Comments Hep Bs Ag (test code Negative *NA*(03/13/17 = Hep Bs Ag) 3:06 PM) [facility] CenterNeuzzxdRUJRUCWPBB3436-08-61 20:06:00 Test Item Value Reference Range Interpretation Comments Hep B Core IgM (test Negative *NA*(03/13/17 code = Hep B Core 3:06 PM) IgM) [facility] CenterOkeqcijZROYRNYXLV2079-80-50 20:06:00 Test Item Value Reference Range Interpretation Comments Hep C Ab (test code = Positive *ABN*(03/13/17 Hep C Ab) 3:06 PM) [facility] CenterDuraizzBPGFOHDIJC3146-35-66 20:06:00 Test Item Value Reference Range Interpretation Comments Hep B Core Ab (test Negative *NA*(03/13/17 code = Hep B Core Ab) 3:06 PM) [facility] CenterReezffyRHKKIHKIPR3543-65-78 20:06:00 Test Item Value Reference Range Interpretation Comments Hep A IgM (test code Negative *NA*(03/13/17 = Hep A IgM) 3:06 PM) [facility] CenterMtitvykUXFWJEJIFV2040-76-05 20:06:00 Test Item Value Reference Range Interpretation Comments Hep Bs Ag (test code Negative *NA*(03/13/17 = Hep Bs Ag) 3:06 PM) [facility] CenterLigwomeKBSXFLQTKC0963-73-62 20:06:00 Test Item Value Reference Range Interpretation Comments Hep B Core IgM (test Negative *NA*(03/13/17 code = Hep B Core 3:06 PM) IgM) [facility] CenterHprcopwHZJXROEXVX3324-22-62 20:06:00 Test Item Value Reference Range Interpretation Comments Hep C Ab (test code = Positive *ABN*(03/13/17 Hep C Ab) 3:06 PM) [facility] CenterKbifaecCGRZZHWQUO6189-50-59 20:06:00 Test Item Value Reference Range Interpretation Comments Hep B Core Ab (test Negative *NA*(03/13/17 code = Hep B Core Ab) 3:06 PM) [facility] CenterFmaztdsCQFNEZBGTG8723-69-83 20:06:00 Test Item Value Reference Range Interpretation Comments Hep A IgM (test code Negative *NA*(03/13/17 = Hep A IgM) 3:06 PM) [facility] CenterWvztkflZBRRJGHQWU2864-28-19 20:06:00 Test Item Value Reference Range Interpretation Comments Hep Bs Ag (test code Negative *NA*(03/13/17 = Hep Bs Ag) 3:06 PM) [facility] CenterNwaevpxLUYYJYFHAB1725-79-70 20:06:00 Test Item Value Reference Range Interpretation Comments Hep B Core IgM (test Negative *NA*(03/13/17 code = Hep B Core 3:06 PM) IgM) [facility] CenterNmumgccIYPWXNTERB5323-08-70 20:06:00 Test Item Value Reference Range Interpretation Comments Hep C Ab (test code = Positive *ABN*(03/13/17 Hep C Ab) 3:06 PM) [facility] CenterGzpaspwMLWATJUOAF8197-95-19 20:06:00 Test Item Value Reference Range Interpretation Comments Hep B Core Ab (test Negative *NA*(03/13/17 code = Hep B Core Ab) 3:06 PM) [facility] CenterQeupqryATCVWSBIGJ3103-43-91 11:14:00 Test Item Value Reference Range Interpretation Comments Hep Be Ab (test code = Hep Be Ab) Negative [facility] CenterOwesbpwMLCDNKPAJK7982-19-29 11:14:00 Test Item Value Reference Range Interpretation Comments Hep Be Ab (test code = Hep Be Ab) Negative [facility] CenterQkcouedAQXOMEPCLJ5025-75-49 11:14:00 Test Item Value Reference Range Interpretation Comments Hep Be Ab (test code = Hep Be Ab) Negative [facility]bkohebLETNFXONOK6856-61-46 23:21:00 Test Item Value Reference Range Interpretation Comments Hep Bs Ag (test code Negative *NA*(03/12/17 = Hep Bs Ag) 6:21 PM) [facility]OmzmzsbPVJMQEQUBG0597-77-47 23:21:00 Test Item Value Reference Range Interpretation Comments Hep Bs Ag (test code Negative *NA*(03/12/17 = Hep Bs Ag) 6:21 PM) [facility] CenterWcvdzccMYSVLYTQMO8033-18-78 23:21:00 Test Item Value Reference Range Interpretation Comments Hep B Core Ab (test Negative *NA*(03/12/17 code = Hep B Core Ab) 6:21 PM) [facility] CenterBoahshrACBHBWEGDG1711-36-12 23:21:00 Test Item Value Reference Range Interpretation Comments Hep Bs Ag (test code Negative *NA*(03/12/17 = Hep Bs Ag) 6:21 PM) [facility] CenterRnzqjglECBJDKLMTO7330-14-41 23:21:00 Test Item Value Reference Range Interpretation Comments Hep Bs Ag (test code Negative *NA*(03/12/17 = Hep Bs Ag) 6:21 PM) [facility] CenterNkqtlqcSUMBISLFZY4459-63-45 23:21:00 Test Item Value Reference Range Interpretation Comments Hep B Core Ab (test Negative *NA*(03/12/17 code = Hep B Core Ab) 6:21 PM) [facility] CenterDqwvcilWCJKIWNLFQ5378-48-53 23:21:00 Test Item Value Reference Range Interpretation Comments Hep Bs Ag (test code Negative *NA*(03/12/17 = Hep Bs Ag) 6:21 PM) [facility] CenterOoojvuqGNHOKXGMUX2411-35-95 23:21:00 Test Item Value Reference Range Interpretation Comments Hep Bs Ag (test code Negative *NA*(03/12/17 = Hep Bs Ag) 6:21 PM) [facility] OnquxsfUQOLQFWFNK7074-88-86 23:21:00 Test Item Value Reference Range Interpretation Comments Hep B Core Ab (test Negative *NA*(03/12/17 code = Hep B Core Ab) 6:21 PM) [facility] CenterannCHEM FGMUM4837-30-15 11:03:00 Test Item Value Reference Range Interpretation Comments Magnesium Lvl (test code = Magnesium 2.0 1.8-2.4 Lvl) [facility]VnfkutdBIJCLIDKVDTA2707-53-52 11:03:00 Test Item Value Reference Range Interpretation Comments AGAP (test code = AGAP) 15.8 10.0-20.0 [facility] HospitalCbggxocSNCNKTEISYRM2758-22-42 11:03:00 Test Item Value Reference Range Interpretation Comments Phosphorus (test code = Phosphorus) 6.2 2.5-4.5 [facility] HospitalXjnotdaIJEVQDEZCMGE7780-25-05 11:03:00 Test Item Value Reference Range Interpretation Comments Albumin Lvl (test code = Albumin Lvl) 2.7 3.5-5.0 [facility] HospitalIhfyflmPCHMIQXGCBCS1898-83-10 11:03:00 Test Item Value Reference Range Interpretation Comments Chloride Lvl (test code = Chloride Lvl) 108 95-109 [facility] HospitalAtwknkgLUOPMAXNKHJW2986-35-99 11:03:00 Test Item Value Reference Range Interpretation Comments CO2 (test code = CO2) 20 24-32 [facility] HospitalJlmvpuxFFVOBHZAXAGC4826-04-17 11:03:00 Test Item Value Reference Range Interpretation Comments Calcium Lvl (test code = Calcium Lvl) 7.4 8.5-10.5 [facility] HospitalDjobitsHBJAAWCORLHY5420-40-85 11:03:00 Test Item Value Reference Range Interpretation Comments Sodium Lvl (test code = Sodium Lvl) 139 135-145 [facility] HospitalLwygsryXPKDJOSYZOFZ4121-60-55 11:03:00 Test Item Value Reference Range Interpretation Comments Creatinine Lvl (test code = Creatinine 9.27 0.50-1.40 Lvl) [facility] HospitalCsygiwvFNXKAFDTTLAB0746-37-71 11:03:00 Test Item Value Reference Range Interpretation Comments BUN (test code = BUN) 60 7-22 [facility] HospitalYevschbWHJPLMOFLFOG6022-43-63 11:03:00 Test Item Value Reference Range Interpretation Comments Potassium Lvl (test code = Potassium 4.8 3.5-5.1 Lvl) [facility] HospitalUlzjcikNQVTCTKJQYEB9087-12-53 11:03:00 Test Item Value Reference Range Interpretation Comments Glucose Lvl (test code = Glucose Lvl) 88 70-99 [facility] HospitalZllkxouXTQBAHWSPZXW8216-25-09 11:03:00 Test Item Value Reference Range Interpretation Comments eGFR (test code = eGFR) 6 [facility]2017-06-14 11:03:00 Test Item Value Reference Range Interpretation Comments Magnesium Lvl (test code = Magnesium 2.0 1.8-2.4 Lvl) [facility] HospitalLyqtkruGKPSLSKKOKEQ1878-63-72 11:03:00 Test Item Value Reference Range Interpretation Comments AGAP (test code = AGAP) 15.8 10.0-20.0 [facility] HospitalJwjgpajLJUIABIJNNQL0944-64-29 11:03:00 Test Item Value Reference Range Interpretation Comments Phosphorus (test code = Phosphorus) 6.2 2.5-4.5 [facility] HospitalUzyneyvDRRBIOQOJHST8361-26-37 11:03:00 Test Item Value Reference Range Interpretation Comments Albumin Lvl (test code = Albumin Lvl) 2.7 3.5-5.0 [facility] HospitalExmkrocWCKXKAJHKFLE3412-97-28 11:03:00 Test Item Value Reference Range Interpretation Comments Chloride Lvl (test code = Chloride Lvl) 108 95-109 [facility] HospitalKbdmvedFFRYNCIHEKYQ6807-57-40 11:03:00 Test Item Value Reference Range Interpretation Comments CO2 (test code = CO2) 20 24-32 [facility] HospitalEupllzhCAJZSUTWFIJI3789-51-16 11:03:00 Test Item Value Reference Range Interpretation Comments Calcium Lvl (test code = Calcium Lvl) 7.4 8.5-10.5 [facility] HospitalUjtaqelUGBJWVEXALXJ8659-93-18 11:03:00 Test Item Value Reference Range Interpretation Comments Sodium Lvl (test code = Sodium Lvl) 139 135-145 [facility] HospitalOpdtwrcZBLEAEHFHUQT9819-91-39 11:03:00 Test Item Value Reference Range Interpretation Comments Creatinine Lvl (test code = Creatinine 9.27 0.50-1.40 Lvl) [facility] HospitalOmyggdzMBGOBDAFPFSF3318-80-35 11:03:00 Test Item Value Reference Range Interpretation Comments BUN (test code = BUN) 60 7-22 [facility] HospitalGtsbiugZAWIUJTDEVYE5008-85-17 11:03:00 Test Item Value Reference Range Interpretation Comments Potassium Lvl (test code = Potassium 4.8 3.5-5.1 Lvl) [facility] HospitalItkuwqrAHNRFWETBICE9284-69-77 11:03:00 Test Item Value Reference Range Interpretation Comments Glucose Lvl (test code = Glucose Lvl) 88 70-99 [facility] HospitalNiiolwwFWWQNECESTBM0776-69-90 11:03:00 Test Item Value Reference Range Interpretation Comments eGFR (test code = eGFR) 6 [facility] APBOZ1992-72-04 11:03:00 Test Item Value Reference Range Interpretation Comments Magnesium Lvl (test code = Magnesium 2.0 1.8-2.4 Lvl) [facility] HospitalApnypfkQNJNNNFOQUWV9553-78-58 11:03:00 Test Item Value Reference Range Interpretation Comments AGAP (test code = AGAP) 15.8 10.0-20.0 [facility] HospitalPcsemgnXEMUNWSTTMAH3986-97-95 11:03:00 Test Item Value Reference Range Interpretation Comments Phosphorus (test code = Phosphorus) 6.2 2.5-4.5 [facility] HospitalDjdpzkfOYJTLVUGUGDZ6723-47-73 11:03:00 Test Item Value Reference Range Interpretation Comments Albumin Lvl (test code = Albumin Lvl) 2.7 3.5-5.0 [facility] HospitalUvfzvhmTSKCCDSEQUZC4775-61-51 11:03:00 Test Item Value Reference Range Interpretation Comments Chloride Lvl (test code = Chloride Lvl) 108 95-109 [facility] HospitalBblzebqLVTXGIFPMSNG2378-19-69 11:03:00 Test Item Value Reference Range Interpretation Comments CO2 (test code = CO2) 20 24-32 [facility] HospitalIdpdpocNSFPZBIIWQSF9042-46-10 11:03:00 Test Item Value Reference Range Interpretation Comments Calcium Lvl (test code = Calcium Lvl) 7.4 8.5-10.5 [facility] HospitalClcptewPNXEGFIZLKTY1533-37-29 11:03:00 Test Item Value Reference Range Interpretation Comments Sodium Lvl (test code = Sodium Lvl) 139 135-145 [facility] HospitalJoyjogkNUPRADQTLSYF0606-18-27 11:03:00 Test Item Value Reference Range Interpretation Comments Creatinine Lvl (test code = Creatinine 9.27 0.50-1.40 Lvl) [facility] HospitalUhfqqnxNGABNJMOADVI6971-32-43 11:03:00 Test Item Value Reference Range Interpretation Comments BUN (test code = BUN) 60 7-22 [facility] HospitalUigrokkVGGOXKXPTUWR2779-29-62 11:03:00 Test Item Value Reference Range Interpretation Comments Potassium Lvl (test code = Potassium 4.8 3.5-5.1 Lvl) [facility] HospitalIovwwsbBSAAAXWFFPES9501-97-37 11:03:00 Test Item Value Reference Range Interpretation Comments Glucose Lvl (test code = Glucose Lvl) 88 70-99 [facility] RwkncjvNOJJZBIFKZGL7393-15-66 11:03:00 Test Item Value Reference Range Interpretation Comments eGFR (test code = eGFR) 6 [facility] LRMA4591-05-34 18:59:00 Test Item Value Reference Range Interpretation Comments U Creatinine (test code = U Creatinine) 76.70 [facility] CPRP3221-81-64 18:59:00 Test Item Value Reference Range Interpretation Comments U Protein (test code = U Protein) 360.8 [facility] QNUP3891-95-41 18:59:00 Test Item Value Reference Range Interpretation Comments U Eos (test code = U None Seen (03/11/17 1:59 Eos) PM) [facility] MGAO6915-16-20 18:59:00 Test Item Value Reference Range Interpretation Comments U Sodium (test code = U Sodium) 68 [facility] YGMK6976-65-05 18:59:00 Test Item Value Reference Range Interpretation Comments U Prot/Creat (test code = U Prot/Creat) 4.7 [facility] YZYQ2959-90-75 18:59:00 Test Item Value Reference Range Interpretation Comments U Creatinine (test code = U Creatinine) 76.70 [facility] [id number] 18:59:00 Test Item Value Reference Range Interpretation Comments U Protein (test code = U Protein) 360.8 [facility] [id number] 18:59:00 Test Item Value Reference Range Interpretation Comments U Eos (test code = U None Seen (03/11/17 1:59 Eos) PM) [facility] TQEG0754-82-46 18:59:00 Test Item Value Reference Range Interpretation Comments U Sodium (test code = U Sodium) 68 [facility] GNFJ2423-84-52 18:59:00 Test Item Value Reference Range Interpretation Comments U Prot/Creat (test code = U Prot/Creat) 4.7 [facility] PUGU5110-18-71 18:59:00 Test Item Value Reference Range Interpretation Comments U Creatinine (test code = U Creatinine) 76.70 [facility] IWZS8650-74-91 18:59:00 Test Item Value Reference Range Interpretation Comments U Protein (test code = U Protein) 360.8 [facility] IYKW1719-89-80 18:59:00 Test Item Value Reference Range Interpretation Comments U Eos (test code = U None Seen (03/11/17 1:59 Eos) PM) [facility]2017-06-13 18:59:00 Test Item Value Reference Range Interpretation Comments U Sodium (test code = U Sodium) 68 [facility]2017-06-13 18:59:00 Test Item Value Reference Range Interpretation Comments U Prot/Creat (test code = U Prot/Creat) 4.7 [facility]2017-06-13 09:56:00 Test Item Value Reference Range Interpretation Comments A/G Ratio (test code = A/G Ratio) 0.6 0.7-1.6 [facility]2017-06-13 09:56:00 Test Item Value Reference Range Interpretation Comments AGAP (test code = AGAP) 16.5 10.0-20.0 [facility]2017-06-13 09:56:00 Test Item Value Reference Range Interpretation Comments B/C Ratio (test code = B/C Ratio) 6 6-25 [facility]2017-06-13 09:56:00 Test Item Value Reference Range Interpretation Comments Globulin (test code = Globulin) 4.6 2.7-4.2 [facility]2017-06-13 09:56:00 Test Item Value Reference Range Interpretation Comments Bili Total (test code = Bili Total) 0.3 0.2-1.3 [facility]2017-06-13 09:56:00 Test Item Value Reference Range Interpretation Comments Alk Phos (test code = Alk Phos) 123 39-136 [facility]2017-06-13 09:56:00 Test Item Value Reference Range Interpretation Comments AST (test code = AST) 12 See_Comment [Auto mated message] The system which ge nerated this result transmit cruz reference range : <=37. The reference range was not used to interpr et this result as gee l/abnormal. [facility]2017-06-13 09:56:00 Test Item Value Reference Range Interpretation Comments Total Protein (test code = Total 7.3 6.4-8.4 Protein) [facility]2017-06-13 09:56:00 Test Item Value Reference Range Interpretation Comments Albumin Lvl (test code = Albumin Lvl) 2.7 3.5-5.0 [facility]2017-06-13 09:56:00 Test Item Value Reference Range Interpretation Comments ALT (test code = ALT) 17 See_Comment [Auto mated message] The system which ge nerated this result transmit cruz reference range : <=65. The reference range was not used to interpr et this result as gee l/abnormal. [facility]2017-06-13 09:56:00 Test Item Value Reference Range Interpretation Comments CO2 (test code = CO2) 21 24-32 [facility]2017-06-13 09:56:00 Test Item Value Reference Range Interpretation Comments Calcium Lvl (test code = Calcium Lvl) 7.5 8.5-10.5 [facility]2017-06-13 09:56:00 Test Item Value Reference Range Interpretation Comments Potassium Lvl (test code = Potassium 4.5 3.5-5.1 Lvl) [facility]2017-06-13 09:56:00 Test Item Value Reference Range Interpretation Comments Creatinine Lvl (test code = Creatinine 9.18 0.50-1.40 Lvl) [facility]2017-06-13 09:56:00 Test Item Value Reference Range Interpretation Comments Sodium Lvl (test code = Sodium Lvl) 141 135-145 [facility]2017-06-13 09:56:00 Test Item Value Reference Range Interpretation Comments BUN (test code = BUN) 59 7-22 [facility]2017-06-13 09:56:00 Test Item Value Reference Range Interpretation Comments Chloride Lvl (test code = Chloride Lvl) 108 95-109 [facility]2017-06-13 09:56:00 Test Item Value Reference Range Interpretation Comments eGFR (test code = eGFR) 6 [facility]2017-06-13 09:56:00 Test Item Value Reference Range Interpretation Comments Glucose Lvl (test code = Glucose Lvl) 86 70-99 [facility]2017-06-13 09:56:00 Test Item Value Reference Range Interpretation Comments Phosphorus (test code = Phosphorus) 5.9 2.5-4.5 [facility]2017-06-13 09:56:00 Test Item Value Reference Range Interpretation Comments Magnesium Lvl (test code = Magnesium 2.0 1.8-2.4 Lvl) [facility]JrjgamoPVXIGDYFMX1243-08-10 09:56:00 Test Item Value Reference Range Interpretation Comments Platelet (test code = Platelet) 225 133-450 [facility]IjqqnstDTRXSUJHRJ4779-25-08 09:56:00 Test Item Value Reference Range Interpretation Comments MPV (test code = MPV) 10.2 7.4-10.4 [facility] HospitalRgtyiolFJSQGJJRVU9213-86-20 09:56:00 Test Item Value Reference Range Interpretation Comments MCHC (test code = MCHC) 32.5 32.0-36.0 [facility] HospitalKsyhfapKQNXYILTAW7604-69-48 09:56:00 Test Item Value Reference Range Interpretation Comments RDW (test code = RDW) 12.9 11.5-14.5 [facility] HospitalJxgnmrpJAWOAPGQDJ8508-66-59 09:56:00 Test Item Value Reference Range Interpretation Comments MCV (test code = MCV) 89.7 80.0-94.0 [facility] HospitalVvcuonfKWXDXLQSPE7352-96-64 09:56:00 Test Item Value Reference Range Interpretation Comments MCH (test code = MCH) 29.1 pg 27.0-31.0 [facility] HospitalNveydscYRDKEUZWBQ7958-41-63 09:56:00 Test Item Value Reference Range Interpretation Comments Hct (test code = Hct) 37.0 42.0-54.0 [facility]MxjinbwJCXSMISNTJ3530-15-89 09:56:00 Test Item Value Reference Range Interpretation Comments RBC (test code = RBC) 4.12 4.70-6.10 [facility] HospitalMvqjrmtJUBOREPXWL1397-85-97 09:56:00 Test Item Value Reference Range Interpretation Comments Hgb (test code = Hgb) 12.0 14.0-18.0 [facility] HospitalBgqsirrBZZOZTLDOX6211-63-69 09:56:00 Test Item Value Reference Range Interpretation Comments WBC (test code = WBC) 8.8 3.7-10.4 [facility] HospitalFmcnovzBXLTKKVIAE2091-06-99 09:56:00 Test Item Value Reference Range Interpretation Comments Monocytes (test code = Monocytes) 9.7 2.0-12.0 [place] [id number] 09:56:00 Test Item Value Reference Range Interpretation Comments Eosinophils (test code = 2.8 See_Comment [A utomated message] The Eosinophils) system which ge nerated this result tra nsmitted reference range : <=4.0. The reference r jillian was not used to int erpret this result as normal/abnormal . [facility] HospitalOxgnlxaJUSHMLUJJN4615-18-41 09:56:00 Test Item Value Reference Range Interpretation Comments Segs (test code = Segs) 62.8 45.0-75.0 [facility] HospitalCjxqhspVELFXCYBSE4827-34-59 09:56:00 Test Item Value Reference Range Interpretation Comments Lymphocytes (test code = Lymphocytes) 23.8 20.0-40.0 [facility] HospitalGefythxDPRZLECZAD8774-30-41 09:56:00 Test Item Value Reference Range Interpretation Comments Basophils # (test code 0.1 See_Comment [Aut omated message] The = Basophils #) system which generated this result tra nsmitted reference range : <=0.2. The reference r jillian was not used to int erpret this result as normal/abnormal . [facility] HospitalPmhqegmBAFMYKWVJY7357-12-61 09:56:00 Test Item Value Reference Range Interpretation Comments Lymphocytes # (test code = Lymphocytes 2.1 1.0-5.5 #) [facility] HospitalNnmldygCRWQSUFFBB8244-09-59 09:56:00 Test Item Value Reference Range Interpretation Comments Basophils (test code = 0.9 See_Comment [Aut omated message] The Basophils) system which ge nerated this result tra nsmitted reference range : <=1.0. The reference r jillian was not used to int erpret this result as normal/abnormal . [facility] HospitalTusililLHINIFMHNF3577-41-59 09:56:00 Test Item Value Reference Range Interpretation Comments Eosinophils # (test code 0.2 See_Comment [A utomated message] The = Eosinophils #) system whic h generated this result tra nsmitted reference range : <=0.5. The reference r jillian was not used to int erpret this result as normal/abnormal . [facility] HospitalMijepmnSADKZYQNCQ3544-90-53 09:56:00 Test Item Value Reference Range Interpretation Comments Segs-Bands # (test code = Segs-Bands #) 5.5 1.5-8.1 [facility] HospitalEyrcnozQPOJMCYKGP0280-25-36 09:56:00 Test Item Value Reference Range Interpretation Comments Monocytes # (test code 0.9 See_Comment [Aut omated message] The = Monocytes #) system which generated this result tra nsmitted reference range : <=0.8. The reference r jillian was not used to int erpret this result as normal/abnormal . [facility]2017-06-13 09:56:00 Test Item Value Reference Range Interpretation Comments Ca Norm WB (test code = Ca Norm WB) 0.93 1.05-1.25 [facility]2017-06-13 09:56:00 Test Item Value Reference Range Interpretation Comments Ca Ion WB (test code = Ca Ion WB) 0.97 1.05-1.25 [facility] CenterItalia OnlineTRANSYLVANIA REGIONAL HOSPITALBZQGL4533-25-67 09:56:00 Test Item Value Reference Range Interpretation Comments A/G Ratio (test code = A/G Ratio) 0.6 0.7-1.6 [facility]2017-06-13 09:56:00 Test Item Value Reference Range Interpretation Comments AGAP (test code = AGAP) 16.5 10.0-20.0 [facility] CenterItalia OnlineTRANSYLVANIA REGIONAL [id number] 09:56:00 Test Item Value Reference Range Interpretation Comments B/C Ratio (test code = B/C Ratio) 6 6-25 [facility] CenterItalia OnlineTRANSYLVANIA REGIONAL HOSPITALDBYEL8655-33-04 09:56:00 Test Item Value Reference Range Interpretation Comments Globulin (test code = Globulin) 4.6 2.7-4.2 [facility]2017-06-13 09:56:00 Test Item Value Reference Range Interpretation Comments Bili Total (test code = Bili Total) 0.3 0.2-1.3 [facility]2017-06-13 09:56:00 Test Item Value Reference Range Interpretation Comments Alk Phos (test code = Alk Phos) 123 39-136 [facility]2017-06-13 09:56:00 Test Item Value Reference Range Interpretation Comments AST (test code = AST) 12 See_Comment [Auto mated message] The system which ge nerated this result transmit cruz reference range : <=37. The reference range was not used to interpr et this result as gee l/abnormal. [facility] CenterHealth [facility] [id number] 09:56:00 Test Item Value Reference Range Interpretation Comments Total Protein (test code = Total 7.3 6.4-8.4 Protein) [facility]2017-06-13 09:56:00 Test Item Value Reference Range Interpretation Comments Albumin Lvl (test code = Albumin Lvl) 2.7 3.5-5.0 [facility]2017-06-13 09:56:00 Test Item Value Reference Range Interpretation Comments ALT (test code = ALT) 17 See_Comment [Auto mated message] The system which ge nerated this result transmit cruz reference range : <=65. The reference range was not used to interpr et this result as gee l/abnormal. [facility]2017-06-13 09:56:00 Test Item Value Reference Range Interpretation Comments CO2 (test code = CO2) 21 24-32 [facility]2017-06-13 09:56:00 Test Item Value Reference Range Interpretation Comments Calcium Lvl (test code = Calcium Lvl) 7.5 8.5-10.5 [facility]2017-06-13 09:56:00 Test Item Value Reference Range Interpretation Comments Potassium Lvl (test code = Potassium 4.5 3.5-5.1 Lvl) [facility]2017-06-13 09:56:00 Test Item Value Reference Range Interpretation Comments Creatinine Lvl (test code = Creatinine 9.18 0.50-1.40 Lvl) [facility]2017-06-13 09:56:00 Test Item Value Reference Range Interpretation Comments Sodium Lvl (test code = Sodium Lvl) 141 135-145 [facility]2017-06-13 09:56:00 Test Item Value Reference Range Interpretation Comments BUN (test code = BUN) 59 7-22 [facility]2017-06-13 09:56:00 Test Item Value Reference Range Interpretation Comments Chloride Lvl (test code = Chloride Lvl) 108 95-109 [facility]2017-06-13 09:56:00 Test Item Value Reference Range Interpretation Comments eGFR (test code = eGFR) 6 [facility]2017-06-13 09:56:00 Test Item Value Reference Range Interpretation Comments Glucose Lvl (test code = Glucose Lvl) 86 70-99 [facility]2017-06-13 09:56:00 Test Item Value Reference Range Interpretation Comments Phosphorus (test code = Phosphorus) 5.9 2.5-4.5 [facility]2017-06-13 09:56:00 Test Item Value Reference Range Interpretation Comments Magnesium Lvl (test code = Magnesium 2.0 1.8-2.4 Lvl) [facility] HospitalXzgiwoeXSGRLHQOJE3813-96-98 09:56:00 Test Item Value Reference Range Interpretation Comments Platelet (test code = Platelet) 225 133-450 [facility] HospitalIjqeidxARDUSEDUWM1853-38-69 09:56:00 Test Item Value Reference Range Interpretation Comments MPV (test code = MPV) 10.2 7.4-10.4 [facility] HospitalBoczfwaUYOSARZAUB0145-78-18 09:56:00 Test Item Value Reference Range Interpretation Comments MCHC (test code = MCHC) 32.5 32.0-36.0 [facility] HospitalBcnmjlwSWZEPHRYBZ2993-28-18 09:56:00 Test Item Value Reference Range Interpretation Comments RDW (test code = RDW) 12.9 11.5-14.5 [facility] HospitalZpfqratJZYCWLSCZH2257-62-61 09:56:00 Test Item Value Reference Range Interpretation Comments MCV (test code = MCV) 89.7 80.0-94.0 [facility] HospitalAbvzudaPPAOONLPVQ3756-91-78 09:56:00 Test Item Value Reference Range Interpretation Comments MCH (test code = MCH) 29.1 pg 27.0-31.0 [facility] HospitalRsiftgiLJMBQIBWEG2539-21-23 09:56:00 Test Item Value Reference Range Interpretation Comments Hct (test code = Hct) 37.0 42.0-54.0 [facility] HospitalGzlbuywJICJJOFLEE6609-27-82 09:56:00 Test Item Value Reference Range Interpretation Comments RBC (test code = RBC) 4.12 4.70-6.10 [facility] HospitalZueiemeZOOXXPFECV6111-86-72 09:56:00 Test Item Value Reference Range Interpretation Comments Hgb (test code = Hgb) 12.0 14.0-18.0 [facility] HospitalBkkkvlmTMPRBITUBL6510-70-20 09:56:00 Test Item Value Reference Range Interpretation Comments WBC (test code = WBC) 8.8 3.7-10.4 [facility] HospitalAzbgcgzONEESNFXHG9473-43-13 09:56:00 Test Item Value Reference Range Interpretation Comments Monocytes (test code = Monocytes) 9.7 2.0-12.0 [place] 656457-06-13 09:56:00 Test Item Value Reference Range Interpretation Comments Eosinophils (test code = 2.8 See_Comment [A utomated message] The Eosinophils) system which ge nerated this result tra nsmitted reference range : <=4.0. The reference r jillian was not used to int erpret this result as normal/abnormal . [facility] HospitalXsqhwxvSQITVDRGUH0493-32-40 09:56:00 Test Item Value Reference Range Interpretation Comments Segs (test code = Segs) 62.8 45.0-75.0 [facility] HospitalBzebrivVNQYSALSHK9382-16-18 09:56:00 Test Item Value Reference Range Interpretation Comments Lymphocytes (test code = Lymphocytes) 23.8 20.0-40.0 [facility] HospitalKjzyfrmZCCUHYUIFV6284-59-24 09:56:00 Test Item Value Reference Range Interpretation Comments Basophils # (test code 0.1 See_Comment [Aut omated message] The = Basophils #) system which generated this result tra nsmitted reference range : <=0.2. The reference r jillian was not used to int erpret this result as normal/abnormal . [facility] HospitalYswkexbYPIHJUYRES8842-34-30 09:56:00 Test Item Value Reference Range Interpretation Comments Lymphocytes # (test code = Lymphocytes 2.1 1.0-5.5 #) [facility] HospitalZoiwoyyGCYXLGFFXF1280-01-74 09:56:00 Test Item Value Reference Range Interpretation Comments Basophils (test code = 0.9 See_Comment [Aut omated message] The Basophils) system which ge nerated this result tra nsmitted reference range : <=1.0. The reference r jillian was not used to int erpret this result as normal/abnormal . [facility] HospitalNqxchhpOHIFFEPWEJ3044-23-01 09:56:00 Test Item Value Reference Range Interpretation Comments Eosinophils # (test code 0.2 See_Comment [A utomated message] The = Eosinophils #) system whic h generated this result tra nsmitted reference range : <=0.5. The reference r jillian was not used to int erpret this result as normal/abnormal . [facility] HospitalEwgzywmLMGZWURHLO8146-37-78 09:56:00 Test Item Value Reference Range Interpretation Comments Segs-Bands # (test code = Segs-Bands #) 5.5 1.5-8.1 [facility] HospitalKouwzzaNUJRKTGZIH7733-87-61 09:56:00 Test Item Value Reference Range Interpretation Comments Monocytes # (test code 0.9 See_Comment [Aut omated message] The = Monocytes #) system which generated this result tra nsmitted reference range : <=0.8. The reference r jillian was not used to int erpret this result as normal/abnormal . [facility]2017-06-13 09:56:00 Test Item Value Reference Range Interpretation Comments Ca Norm WB (test code = Ca Norm WB) 0.93 1.05-1.25 [facility]2017-06-13 09:56:00 Test Item Value Reference Range Interpretation Comments Ca Ion WB (test code = Ca Ion WB) 0.97 1.05-1.25 [facility]2017-06-13 09:56:00 Test Item Value Reference Range Interpretation Comments A/G Ratio (test code = A/G Ratio) 0.6 0.7-1.6 [facility]2017-06-13 09:56:00 Test Item Value Reference Range Interpretation Comments AGAP (test code = AGAP) 16.5 10.0-20.0 [facility]2017-06-13 09:56:00 Test Item Value Reference Range Interpretation Comments B/C Ratio (test code = B/C Ratio) 6 6-25 [facility]2017-06-13 09:56:00 Test Item Value Reference Range Interpretation Comments Globulin (test code = Globulin) 4.6 2.7-4.2 [facility]2017-06-13 09:56:00 Test Item Value Reference Range Interpretation Comments Bili Total (test code = Bili Total) 0.3 0.2-1.3 [facility]2017-06-13 09:56:00 Test Item Value Reference Range Interpretation Comments Alk Phos (test code = Alk Phos) 123 39-136 [facility]2017-06-13 09:56:00 Test Item Value Reference Range Interpretation Comments AST (test code = AST) 12 See_Comment [Auto mated message] The system which ge nerated this result transmit cruz reference range : <=37. The reference range was not used to interpr et this result as gee l/abnormal. [facility]2017-06-13 09:56:00 Test Item Value Reference Range Interpretation Comments Total Protein (test code = Total 7.3 6.4-8.4 Protein) [facility]2017-06-13 09:56:00 Test Item Value Reference Range Interpretation Comments Albumin Lvl (test code = Albumin Lvl) 2.7 3.5-5.0 [facility]2017-06-13 09:56:00 Test Item Value Reference Range Interpretation Comments ALT (test code = ALT) 17 See_Comment [Auto mated message] The system which ge nerated this result transmit cruz reference range : <=65. The reference range was not used to interpr et this result as gee l/abnormal. [facility]2017-06-13 09:56:00 Test Item Value Reference Range Interpretation Comments CO2 (test code = CO2) 21 24-32 [facility]2017-06-13 09:56:00 Test Item Value Reference Range Interpretation Comments Calcium Lvl (test code = Calcium Lvl) 7.5 8.5-10.5 [facility]2017-06-13 09:56:00 Test Item Value Reference Range Interpretation Comments Potassium Lvl (test code = Potassium 4.5 3.5-5.1 Lvl) [facility]2017-06-13 09:56:00 Test Item Value Reference Range Interpretation Comments Creatinine Lvl (test code = Creatinine 9.18 0.50-1.40 Lvl) [facility]2017-06-13 09:56:00 Test Item Value Reference Range Interpretation Comments Sodium Lvl (test code = Sodium Lvl) 141 135-145 [facility]2017-06-13 09:56:00 Test Item Value Reference Range Interpretation Comments BUN (test code = BUN) 59 7-22 [facility]2017-06-13 09:56:00 Test Item Value Reference Range Interpretation Comments Chloride Lvl (test code = Chloride Lvl) 108 95-109 [facility]2017-06-13 09:56:00 Test Item Value Reference Range Interpretation Comments eGFR (test code = eGFR) 6 [facility]2017-06-13 09:56:00 Test Item Value Reference Range Interpretation Comments Glucose Lvl (test code = Glucose Lvl) 86 70-99 [facility]2017-06-13 09:56:00 Test Item Value Reference Range Interpretation Comments Phosphorus (test code = Phosphorus) 5.9 2.5-4.5 [facility] TXJRR4474-57-34 09:56:00 Test Item Value Reference Range Interpretation Comments Magnesium Lvl (test code = Magnesium 2.0 1.8-2.4 Lvl) [facility] HospitalVzsqdvoASAYSKWEEG7220-21-02 09:56:00 Test Item Value Reference Range Interpretation Comments Platelet (test code = Platelet) 225 133-450 [facility] HospitalDbdksfrZUOTVZJJZK1596-10-43 09:56:00 Test Item Value Reference Range Interpretation Comments MPV (test code = MPV) 10.2 7.4-10.4 [facility] HospitalBajvbcdCWZDIZKKKJ5712-42-60 09:56:00 Test Item Value Reference Range Interpretation Comments MCHC (test code = MCHC) 32.5 32.0-36.0 [facility] HospitalWbvnspfQCZBGDJRWT5270-96-57 09:56:00 Test Item Value Reference Range Interpretation Comments RDW (test code = RDW) 12.9 11.5-14.5 [facility] HospitalRrvdwfwTMLPQPNVRI9919-70-70 09:56:00 Test Item Value Reference Range Interpretation Comments MCV (test code = MCV) 89.7 80.0-94.0 [facility] HospitalSlpqsduZLIZVXJXTV5889-73-30 09:56:00 Test Item Value Reference Range Interpretation Comments MCH (test code = MCH) 29.1 pg 27.0-31.0 [facility] HospitalJuqgkzxMGKUZEANNC3096-95-04 09:56:00 Test Item Value Reference Range Interpretation Comments Hct (test code = Hct) 37.0 42.0-54.0 [facility] HospitalIzttisvHYOKEMWFLP9394-72-49 09:56:00 Test Item Value Reference Range Interpretation Comments RBC (test code = RBC) 4.12 4.70-6.10 [facility] HospitalAixuofvZHDYELQCPB6602-37-26 09:56:00 Test Item Value Reference Range Interpretation Comments Hgb (test code = Hgb) 12.0 14.0-18.0 [facility] HospitalEokpwecVRZKFGMYXA3622-42-29 09:56:00 Test Item Value Reference Range Interpretation Comments WBC (test code = WBC) 8.8 3.7-10.4 [facility] HospitalZunerktDQIHUSWRCG9270-42-19 09:56:00 Test Item Value Reference Range Interpretation Comments Monocytes (test code = Monocytes) 9.7 2.0-12.0 [facility] HospitalGengbonRIMBCGMMGA0586-74-19 09:56:00 Test Item Value Reference Range Interpretation Comments Eosinophils (test code = 2.8 See_Comment [A utomated message] The Eosinophils) system which ge nerated this result tra nsmitted reference range : <=4.0. The reference r jillian was not used to int erpret this result as normal/abnormal . [facility] HospitalMkcmcfpJUVSXGVEXM5264-56-85 09:56:00 Test Item Value Reference Range Interpretation Comments Segs (test code = Segs) 62.8 45.0-75.0 [facility] HospitalIlfvyteRASZCCLSID5405-17-04 09:56:00 Test Item Value Reference Range Interpretation Comments Lymphocytes (test code = Lymphocytes) 23.8 20.0-40.0 [facility] HospitalXamdmmjTEXNJCWFDT7938-51-82 09:56:00 Test Item Value Reference Range Interpretation Comments Basophils # (test code 0.1 See_Comment [Aut omated message] The = Basophils #) system which generated this result tra nsmitted reference range : <=0.2. The reference r jillian was not used to int erpret this result as normal/abnormal . [facility] HospitalSdpkjwuXBSQXGDHHN9848-27-94 09:56:00 Test Item Value Reference Range Interpretation Comments Lymphocytes # (test code = Lymphocytes 2.1 1.0-5.5 #) [facility] HospitalXisdlbaZTJDKCGYWE6575-93-05 09:56:00 Test Item Value Reference Range Interpretation Comments Basophils (test code = 0.9 See_Comment [Aut omated message] The Basophils) system which ge nerated this result tra nsmitted reference range : <=1.0. The reference r jillian was not used to int erpret this result as normal/abnormal . [facility] HospitalTdmzwmgVLJIHUUIJV5910-93-70 09:56:00 Test Item Value Reference Range Interpretation Comments Eosinophils # (test code 0.2 See_Comment [A utomated message] The = Eosinophils #) system whic h generated this result tra nsmitted reference range : <=0.5. The reference r jillian was not used to int erpret this result as normal/abnormal . [facility] HospitalOdwwujtTJUNZQTRVJ1602-87-97 09:56:00 Test Item Value Reference Range Interpretation Comments Segs-Bands # (test code = Segs-Bands #) 5.5 1.5-8.1 [facility] DistrictHjvmtilIQDZJCVVHE6804-75-07 09:56:00 Test Item Value Reference Range Interpretation Comments Monocytes # (test code 0.9 See_Comment [Aut omated message] The = Monocytes #) system which generated this result tra nsmitted reference range : <=0.8. The reference r jillian was not used to int erpret this result as normal/abnormal . [facility] CenterannPARATHYROID MYOQTGS5885-14-39 09:56:00 Test Item Value Reference Range Interpretation Comments Ca Norm WB (test code = Ca Norm WB) 0.93 1.05-1.25 [facility] CenterannPARATHYROID [id number] 09:56:00 Test Item Value Reference Range Interpretation Comments Ca Ion WB (test code = Ca Ion WB) 0.97 1.05-1.25 [facility] [employer].annCARDIAC LVSQLGY7762-69-56 22:14:00 Test Item Value Reference Range Interpretation Comments BNP (test code = BNP) 59 [facility] [employer]annCARDIAC AUWDCDB5044-49-39 22:14:00 Test Item Value Reference Range Interpretation Comments BNP (test code = BNP) 59 [facility] [employer].annCARDIAC RCNSGXP5323-63-50 22:14:00 Test Item Value Reference Range Interpretation Comments BNP (test code = BNP) 59 [facility] [employer].annCHEM NKYCC3040-72-37 22:13:00 Test Item Value Reference Range Interpretation Comments ALT (test code = ALT) 21 See_Comment [Auto mated message] The system which ge nerated this result transmit cruz reference range : <=65. The reference range was not used to interpr et this result as gee l/abnormal. [facility] [employer] MYZMQ8309-06-50 22:13:00 Test Item Value Reference Range Interpretation Comments Albumin Lvl (test code = Albumin Lvl) 2.9 3.5-5.0 [facility] [employer] [id number] 22:13:00 Test Item Value Reference Range Interpretation Comments AST (test code = AST) 14 See_Comment [Auto mated message] The system which ge nerated this result transmit cruz reference range : <=37. The reference range was not used to interpr et this result as gee l/abnormal. [facility]2017-06-12 22:13:00 Test Item Value Reference Range Interpretation Comments Total Protein (test code = Total 7.8 6.4-8.4 Protein) [facility]2017-06-12 22:13:00 Test Item Value Reference Range Interpretation Comments Bili Total (test code = Bili Total) 0.2 0.2-1.3 [facility]2017-06-12 22:13:00 Test Item Value Reference Range Interpretation Comments Alk Phos (test code = Alk Phos) 133 39-136 [facility]2017-06-12 22:13:00 Test Item Value Reference Range Interpretation Comments Globulin (test code = Globulin) 4.9 2.7-4.2 [facility]2017-06-12 22:13:00 Test Item Value Reference Range Interpretation Comments B/C Ratio (test code = B/C Ratio) 6 6-25 [facility]2017-06-12 22:13:00 Test Item Value Reference Range Interpretation Comments A/G Ratio (test code = A/G Ratio) 0.6 0.7-1.6 [facility] HospitalChnyzqoKDLOXDXPTH5761-07-29 22:13:00 Test Item Value Reference Range Interpretation Comments MPV (test code = MPV) 10.7 7.4-10.4 [facility] HospitalJcxhwxkKMXXJRRERR5518-91-94 22:13:00 Test Item Value Reference Range Interpretation Comments MCV (test code = MCV) 89.4 80.0-94.0 [facility] HospitalYtnkilbPPVHDNQBUU9142-50-59 22:13:00 Test Item Value Reference Range Interpretation Comments MCHC (test code = MCHC) 33.0 32.0-36.0 [facility] HospitalCidqfeiFJCYWESUBX8368-81-70 22:13:00 Test Item Value Reference Range Interpretation Comments RDW (test code = RDW) 13.0 11.5-14.5 [facility] HospitalYiuhjnrWSUUBWWFJC0362-57-86 22:13:00 Test Item Value Reference Range Interpretation Comments MCH (test code = MCH) 29.5 pg 27.0-31.0 [facility] HospitalVycdoypPWSWQMPYWF8766-43-87 22:13:00 Test Item Value Reference Range Interpretation Comments Platelet (test code = Platelet) 231 133-450 [facility] HospitalVugdendZGHCAOUWJM2792-02-82 22:13:00 Test Item Value Reference Range Interpretation Comments Hgb (test code = Hgb) 12.0 14.0-18.0 [facility] HospitalJazrxfgMCYULHVYQQ3852-69-61 22:13:00 Test Item Value Reference Range Interpretation Comments Hct (test code = Hct) 36.5 42.0-54.0 [id number] 22:13:00 Test Item Value Reference Range Interpretation Comments RBC (test code = RBC) 4.09 4.70-6.10 [facility] Hospit[id number] 22:13:00 Test Item Value Reference Range Interpretation Comments WBC (test code = WBC) 8.0 3.7-10.4 [facility] HospitalCoekbqkAAOCDRSYWW6901-15-08 22:13:00 Test Item Value Reference Range Interpretation Comments Basophils # (test code 0.0 See_Comment [Aut omated message] The = Basophils #) system which generated this result tra nsmitted reference range : <=0.2. The reference r jillian was not used to int erpret this result as normal/abnormal . [facility] HospitalYxchlgeCHBAYPFPSG4148-17-27 22:13:00 Test Item Value Reference Range Interpretation Comments Lymphocytes # (test code = Lymphocytes 1.5 1.0-5.5 #) [facility] Hospit[id number] 22:13:00 Test Item Value Reference Range Interpretation Comments Segs-Bands # (test code = Segs-Bands #) 5.8 1.5-8.1 [facility] Hospit[id number] 22:13:00 Test Item Value Reference Range Interpretation Comments Eosinophils # (test code 0.2 See_Comment [A utomated message] The = Eosinophils #) system whic h generated this result tra nsmitted reference range : <=0.5. The reference r jillian was not used to int erpret this result as normal/abnormal . [facility] Hospit[id number] 22:13:00 Test Item Value Reference Range Interpretation Comments Monocytes # (test code 0.4 See_Comment [Aut omated message] The = Monocytes #) system which generated this result tra nsmitted reference range : <=0.8. The reference r jillian was not used to int erpret this result as normal/abnormal . [facility] Hospit[id number] 22:13:00 Test Item Value Reference Range Interpretation Comments Basophils (test code = 0.5 See_Comment [Aut omated message] The Basophils) system which ge nerated this result tra nsmitted reference range : <=1.0. The reference r jillian was not used to int erpret this result as normal/abnormal . [facility] Hospit[id number] 22:13:00 Test Item Value Reference Range Interpretation Comments Eosinophils (test code = 2.8 See_Comment [A utomated message] The Eosinophils) system which ge nerated this result tra nsmitted reference range : <=4.0. The reference r jillian was not used to int erpret this result as normal/abnormal . [facility] Hospit[id number] 22:13:00 Test Item Value Reference Range Interpretation Comments Lymphocytes (test code = Lymphocytes) 19.0 20.0-40.0 [facility] HospitalRjzovadWDKKGPLWWG5362-27-75 22:13:00 Test Item Value Reference Range Interpretation Comments Monocytes (test code = Monocytes) 5.6 2.0-12.0 [facility] HospitalVvrptlsHIEOMRTDTJ4901-74-92 22:13:00 Test Item Value Reference Range Interpretation Comments Segs (test code = Segs) 72.1 45.0-75.0 [facility]2017-06-12 22:13:00 Test Item Value Reference Range Interpretation Comments UA Spec Grav (test code = UA Spec Grav) 1.014 [facility]2017-06-12 22:13:00 Test Item Value Reference Range Interpretation Comments UA Urobilinogen (test code = UA <=1.0 mg/dL 0.1-1.0 Urobilinogen) [facility] [id number] 22:13:00 Test Item Value Reference Range Interpretation Comments UA Bili (test code = Negative *NA*(03/10/17 UA Bili) 5:13 PM) [facility] [id number] 22:13:00 Test Item Value Reference Range Interpretation Comments UA Ketones (test code = UA Negative mg/dL Ketones) [facility] [id number] 22:13:00 Test Item Value Reference Range Interpretation Comments UA Glucose (test code = UA Glucose) 50 mg/dL [facility]2017-06-12 22:13:00 Test Item Value Reference Range Interpretation Comments UA Blood (test code = Small *ABN*(03/10/17 UA Blood) 5:13 PM) [facility] [id number] 22:13:00 Test Item Value Reference Range Interpretation Comments UA Color (test code = Light Yellow UA Color) *NA*(03/10/17 5:13 PM) [facility] [id number] 22:13:00 Test Item Value Reference Range Interpretation Comments UA Mucus (test code = UA Mucus) Few /LPF [facility] [id number] 22:13:00 Test Item Value Reference Range Interpretation Comments UA RBC (test code = 27 See_Comment [Automa cruz message] The UA RBC) system which ge nerated this result transmit cruz reference range : <=2. The reference range was not used to interpr et this result as gee l/abnormal. [facility] [id number] 22:13:00 Test Item Value Reference Range Interpretation Comments UA Hyal Cast (test 1 See_Comment [Automat ed message] The code = UA Hyal Cast) system which generated this result transmit cruz reference range : <=2. The reference range was not used to interpr et this result as gee l/abnormal. [facility] [id number] 22:13:00 Test Item Value Reference Range Interpretation Comments UA Turbidity (test code = Clear (03/10/17 5:13 UA Turbidity) PM) [facility] [id number] 22:13:00 Test Item Value Reference Range Interpretation Comments UA Protein (test code = UA >=300 mg/dL Protein) [facility] [id number] 22:13:00 Test Item Value Reference Range Interpretation Comments UA pH (test code = UA pH) 6.0 5.0-8.0 [facility] [id number] 22:13:00 Test Item Value Reference Range Interpretation Comments UA Nitrite (test code Negative (03/10/17 5:13 = UA Nitrite) PM) [facility] [id number] 22:13:00 Test Item Value Reference Range Interpretation Comments UA Leuk Est (test code Trace *ABN*(03/10/17 = UA Leuk Est) 5:13 PM) [facility] [id number] 22:13:00 Test Item Value Reference Range Interpretation Comments UA Sq Epi (test code = UA Sq Occasional /LPF Epi) [facility] [id number] 22:13:00 Test Item Value Reference Range Interpretation Comments UA WBC (test code = 22 See_Comment [Automa cruz message] The UA WBC) system which ge nerated this result transmit cruz reference range : <=5. The reference range was not used to interpr et this result as gee l/abnormal. [facility]2017-06-12 22:13:00 Test Item Value Reference Range Interpretation Comments ALT (test code = ALT) 21 See_Comment [Auto mated message] The system which ge nerated this result transmit cruz reference range : <=65. The reference range was not used to interpr et this result as gee l/abnormal. [facility]2017-06-12 22:13:00 Test Item Value Reference Range Interpretation Comments Albumin Lvl (test code = Albumin Lvl) 2.9 3.5-5.0 [facility]2017-06-12 22:13:00 Test Item Value Reference Range Interpretation Comments AST (test code = AST) 14 See_Comment [Auto mated message] The system which ge nerated this result transmit cruz reference range : <=37. The reference range was not used to interpr et this result as gee l/abnormal. [facility]2017-06-12 22:13:00 Test Item Value Reference Range Interpretation Comments Total Protein (test code = Total 7.8 6.4-8.4 Protein) [facility]2017-06-12 22:13:00 Test Item Value Reference Range Interpretation Comments Bili Total (test code = Bili Total) 0.2 0.2-1.3 [facility]2017-06-12 22:13:00 Test Item Value Reference Range Interpretation Comments Alk Phos (test code = Alk Phos) 133 39-136 [facility]2017-06-12 22:13:00 Test Item Value Reference Range Interpretation Comments Globulin (test code = Globulin) 4.9 2.7-4.2 [facility]2017-06-12 22:13:00 Test Item Value Reference Range Interpretation Comments B/C Ratio (test code = B/C Ratio) 6 6-25 [facility]2017-06-12 22:13:00 Test Item Value Reference Range Interpretation Comments A/G Ratio (test code = A/G Ratio) 0.6 0.7-1.6 [facility] H[id number] 22:13:00 Test Item Value Reference Range Interpretation Comments MPV (test code = MPV) 10.7 7.4-10.4 [facility] Hospit[id number] 22:13:00 Test Item Value Reference Range Interpretation Comments MCV (test code = MCV) 89.4 80.0-94.0 [facility] Hospit[id number] 22:13:00 Test Item Value Reference Range Interpretation Comments MCHC (test code = MCHC) 33.0 32.0-36.0 [facility] HospitalWaijqgmTYCCJARVSQ0785-55-30 22:13:00 Test Item Value Reference Range Interpretation Comments RDW (test code = RDW) 13.0 11.5-14.5 [facility] HospitalUsoaszxTUIXVPQTSD0609-70-60 22:13:00 Test Item Value Reference Range Interpretation Comments MCH (test code = MCH) 29.5 pg 27.0-31.0 [facility] Hospit[id number] 22:13:00 Test Item Value Reference Range Interpretation Comments Platelet (test code = Platelet) 231 133-450 [facility] HospitalAczikcaLDNBFTGSZG2913-37-14 22:13:00 Test Item Value Reference Range Interpretation Comments Hgb (test code = Hgb) 12.0 14.0-18.0 [facility] HospitalWwnfgizDJSJTRXRMG4014-05-59 22:13:00 Test Item Value Reference Range Interpretation Comments Hct (test code = Hct) 36.5 42.0-54.0 [facility] Hospit[id number] 22:13:00 Test Item Value Reference Range Interpretation Comments RBC (test code = RBC) 4.09 4.70-6.10 [facility] HospitalUupmmryFNTHEBFUQL6221-16-04 22:13:00 Test Item Value Reference Range Interpretation Comments WBC (test code = WBC) 8.0 3.7-10.4 [facility] Hospit[id number] 22:13:00 Test Item Value Reference Range Interpretation Comments Basophils # (test code 0.0 See_Comment [Aut omated message] The = Basophils #) system which generated this result tra nsmitted reference range : <=0.2. The reference r jillian was not used to int erpret this result as normal/abnormal . [facility] HospitalLmznjttUYSHKPKZUP6969-67-03 22:13:00 Test Item Value Reference Range Interpretation Comments Lymphocytes # (test code = Lymphocytes 1.5 1.0-5.5 #) [facility] Hospit[id number] 22:13:00 Test Item Value Reference Range Interpretation Comments Segs-Bands # (test code = Segs-Bands #) 5.8 1.5-8.1 [facility] H[id number] 22:13:00 Test Item Value Reference Range Interpretation Comments Eosinophils # (test code 0.2 See_Comment [A utomated message] The = Eosinophils #) system [facility] generated this result tra nsmitted reference range : <=0.5. The reference r jillian was not used to int erpret this result as normal/abnormal . [facility] H[id number] 22:13:00 Test Item Value Reference Range Interpretation Comments Monocytes # (test code 0.4 See_Comment [Aut omated message] The = Monocytes #) system which generated this result tra nsmitted reference range : <=0.8. The reference r jillian was not used to int erpret this result as normal/abnormal . [facility] HospitalTeaqjiwYARRJEYSPI7285-73-16 22:13:00 Test Item Value Reference Range Interpretation Comments Basophils (test code = 0.5 See_Comment [Aut omated message] The Basophils) system which ge nerated this result tra nsmitted reference range : <=1.0. The reference r jillian was not used to int erpret this result as normal/abnormal . [facility] H[id number] 22:13:00 Test Item Value Reference Range Interpretation Comments Eosinophils (test code = 2.8 See_Comment [A utomated message] The Eosinophils) system which ge nerated this result tra nsmitted reference range : <=4.0. The reference r jillian was not used to int erpret this result as normal/abnormal . [facility] HospitalHpuzaokDZJNWPAAMG6215-06-85 22:13:00 Test Item Value Reference Range Interpretation Comments Lymphocytes (test code = Lymphocytes) 19.0 20.0-40.0 [facility] HospitalFelwbgkWGBPKAHPYD6209-23-92 22:13:00 Test Item Value Reference Range Interpretation Comments Monocytes (test code = Monocytes) 5.6 2.0-12.0 [facility] Hospit[id number] 22:13:00 Test Item Value Reference Range Interpretation Comments Segs (test code = Segs) 72.1 45.0-75.0 [facility] [id number] 22:13:00 Test Item Value Reference Range Interpretation Comments UA Spec Grav (test code = UA Spec Grav) 1.014 [facility] [id number] 22:13:00 Test Item Value Reference Range Interpretation Comments UA Urobilinogen (test code = UA <=1.0 mg/dL 0.1-1.0 Urobilinogen) [facility] [id number] 22:13:00 Test Item Value Reference Range Interpretation Comments UA Bili (test code = Negative *NA*(03/10/17 UA Bili) 5:13 PM) [facility] [id number] 22:13:00 Test Item Value Reference Range Interpretation Comments UA Ketones (test code = UA Negative mg/dL Ketones) [facility] [id number] 22:13:00 Test Item Value Reference Range Interpretation Comments UA Glucose (test code = UA Glucose) 50 mg/dL [facility] [id number] 22:13:00 Test Item Value Reference Range Interpretation Comments UA Blood (test code = Small *ABN*(03/10/17 UA Blood) 5:13 PM) [facility] [id number] 22:13:00 Test Item Value Reference Range Interpretation Comments UA Color (test code = Light Yellow UA Color) *NA*(03/10/17 5:13 PM) [facility] [id number] 22:13:00 Test Item Value Reference Range Interpretation Comments UA Mucus (test code = UA Mucus) Few /LPF [facility] [id number] 22:13:00 Test Item Value Reference Range Interpretation Comments UA RBC (test code = 27 See_Comment [Automa cruz message] The UA RBC) system which ge nerated this result transmit cruz reference range : <=2. The reference range was not used to interpr et this result as gee l/abnormal. [facility] [id number] 22:13:00 Test Item Value Reference Range Interpretation Comments UA Hyal Cast (test 1 See_Comment [Automat ed message] The code = UA Hyal Cast) system which generated this result transmit cruz reference range : <=2. The reference range was not used to interpr et this result as gee l/abnormal. [facility] [id number] 22:13:00 Test Item Value Reference Range Interpretation Comments UA Turbidity (test code = Clear (03/10/17 5:13 UA Turbidity) PM) [facility] [id number] 22:13:00 Test Item Value Reference Range Interpretation Comments UA Protein (test code = UA >=300 mg/dL Protein) [facility] [id number] 22:13:00 Test Item Value Reference Range Interpretation Comments UA pH (test code = UA pH) 6.0 5.0-8.0 [facility] [id number] 22:13:00 Test Item Value Reference Range Interpretation Comments UA Nitrite (test code Negative (03/10/17 5:13 = UA Nitrite) PM) [facility] [id number] 22:13:00 Test Item Value Reference Range Interpretation Comments UA Leuk Est (test code Trace *ABN*(03/10/17 = UA Leuk Est) 5:13 PM) [facility] [id number] 22:13:00 Test Item Value Reference Range Interpretation Comments UA Sq Epi (test code = UA Sq Occasional /LPF Epi) [facility] [id number] 22:13:00 Test Item Value Reference Range Interpretation Comments UA WBC (test code = 22 See_Comment [Automa cruz message] The UA WBC) system which ge nerated this result transmit cruz reference range : <=5. The reference range was not used to interpr et this result as gee l/abnormal. [facility] [id number] 22:13:00 Test Item Value Reference Range Interpretation Comments ALT (test code = ALT) 21 See_Comment [Auto mated message] The system which ge nerated this result transmit cruz reference range : <=65. The reference range was not used to interpr et this result as gee l/abnormal. [facility]2017-06-12 22:13:00 Test Item Value Reference Range Interpretation Comments Albumin Lvl (test code = Albumin Lvl) 2.9 3.5-5.0 [facility]2017-06-12 22:13:00 Test Item Value Reference Range Interpretation Comments AST (test code = AST) 14 See_Comment [Auto mated message] The system which ge nerated this result transmit cruz reference range : <=37. The reference range was not used to interpr et this result as gee l/abnormal. [facility]2017-06-12 22:13:00 Test Item Value Reference Range Interpretation Comments Total Protein (test code = Total 7.8 6.4-8.4 Protein) [facility]2017-06-12 22:13:00 Test Item Value Reference Range Interpretation Comments Bili Total (test code = Bili Total) 0.2 0.2-1.3 [facility]2017-06-12 22:13:00 Test Item Value Reference Range Interpretation Comments Alk Phos (test code = Alk Phos) 133 39-136 [facility]2017-06-12 22:13:00 Test Item Value Reference Range Interpretation Comments Globulin (test code = Globulin) 4.9 2.7-4.2 [facility]2017-06-12 22:13:00 Test Item Value Reference Range Interpretation Comments B/C Ratio (test code = B/C Ratio) 6 6-25 [facility]2017-06-12 22:13:00 Test Item Value Reference Range Interpretation Comments A/G Ratio (test code = A/G Ratio) 0.6 0.7-1.6 [facility] H[id number] 22:13:00 Test Item Value Reference Range Interpretation Comments MPV (test code = MPV) 10.7 7.4-10.4 [facility] Ho[id number] 22:13:00 Test Item Value Reference Range Interpretation Comments MCV (test code = MCV) 89.4 80.0-94.0 [facility] HospitalWprnylkQNCPBAYYIH7561-73-34 22:13:00 Test Item Value Reference Range Interpretation Comments MCHC (test code = MCHC) 33.0 32.0-36.0 [facility] Hospit[id number] 22:13:00 Test Item Value Reference Range Interpretation Comments RDW (test code = RDW) 13.0 11.5-14.5 [facility] Hospit[id number] 22:13:00 Test Item Value Reference Range Interpretation Comments MCH (test code = MCH) 29.5 pg 27.0-31.0 [facility] H[id number] 22:13:00 Test Item Value Reference Range Interpretation Comments Platelet (test code = Platelet) 231 133-450 [facility] Hospit[id number] 22:13:00 Test Item Value Reference Range Interpretation Comments Hgb (test code = Hgb) 12.0 14.0-18.0 [facility] HospitalGqrfliyINJCNCASCE2371-91-22 22:13:00 Test Item Value Reference Range Interpretation Comments Hct (test code = Hct) 36.5 42.0-54.0 [facility] Hospit[id number] 22:13:00 Test Item Value Reference Range Interpretation Comments RBC (test code = RBC) 4.09 4.70-6.10 [facility] Hospit[id number] 22:13:00 Test Item Value Reference Range Interpretation Comments WBC (test code = WBC) 8.0 3.7-10.4 [facility] HospitalJluhambAIMYANKEBB9158-12-12 22:13:00 Test Item Value Reference Range Interpretation Comments Basophils # (test code 0.0 See_Comment [Aut omated message] The = Basophils #) system which generated this result tra nsmitted reference range : <=0.2. The reference r jillian was not used to int erpret this result as normal/abnormal . [facility] HospitalIletzrfJMQLJIFMVD3605-60-30 22:13:00 Test Item Value Reference Range Interpretation Comments Lymphocytes # (test code = Lymphocytes 1.5 1.0-5.5 #) [facility] HospitalTbxxlxwIBKHSPQNFH1037-28-30 22:13:00 Test Item Value Reference Range Interpretation Comments Segs-Bands # (test code = Segs-Bands #) 5.8 1.5-8.1 [facility] HospitalWozitqxCGVZGMFIBD7426-96-09 22:13:00 Test Item Value Reference Range Interpretation Comments Eosinophils # (test code 0.2 See_Comment [A utomated message] The = Eosinophils #) system whic h generated this result tra nsmitted reference range : <=0.5. The reference r jillian was not used to int erpret this result as normal/abnormal . [facility] H[id number] 22:13:00 Test Item Value Reference Range Interpretation Comments Monocytes # (test code 0.4 See_Comment [Aut omated message] The = Monocytes #) system which generated this result tra nsmitted reference range : <=0.8. The reference r jillian was not used to int erpret this result as normal/abnormal . [facility] HospitalOfigxnaJQPBWRPDGF4458-19-31 22:13:00 Test Item Value Reference Range Interpretation Comments Basophils (test code = 0.5 See_Comment [Aut omated message] The Basophils) system which ge nerated this result tra nsmitted reference range : <=1.0. The reference r jillian was not used to int erpret this result as normal/abnormal . [facility] H[id number] 22:13:00 Test Item Value Reference Range Interpretation Comments Eosinophils (test code = 2.8 See_Comment [A utomated message] The Eosinophils) system which ge nerated this result tra nsmitted reference range : <=4.0. The reference r jillian was not used to int erpret this result as normal/abnormal . [facility] Hospit[id number] 22:13:00 Test Item Value Reference Range Interpretation Comments Lymphocytes (test code = Lymphocytes) 19.0 20.0-40.0 [facility] HospitalRdpejpbQQCYGOIYWI6905-09-99 22:13:00 Test Item Value Reference Range Interpretation Comments Monocytes (test code = Monocytes) 5.6 2.0-12.0 [facility] HospitalSdauywjZUFNPTAKKA6574-49-22 22:13:00 Test Item Value Reference Range Interpretation Comments Segs (test code = Segs) 72.1 45.0-75.0 [facility]2017-06-12 22:13:00 Test Item Value Reference Range Interpretation Comments UA Spec Grav (test code = UA Spec Grav) 1.014 [facility]2017-06-12 22:13:00 Test Item Value Reference Range Interpretation Comments UA Urobilinogen (test code = UA <=1.0 mg/dL 0.1-1.0 Urobilinogen) [facility]2017-06-12 22:13:00 Test Item Value Reference Range Interpretation Comments UA Bili (test code = Negative *NA*(03/10/17 UA Bili) 5:13 PM) [facility] [id number] 22:13:00 Test Item Value Reference Range Interpretation Comments UA Ketones (test code = UA Negative mg/dL Ketones) [facility] [id number] 22:13:00 Test Item Value Reference Range Interpretation Comments UA Glucose (test code = UA Glucose) 50 mg/dL [facility] [id number] 22:13:00 Test Item Value Reference Range Interpretation Comments UA Blood (test code = Small *ABN*(03/10/17 UA Blood) 5:13 PM) [facility] [id number] 22:13:00 Test Item Value Reference Range Interpretation Comments UA Color (test code = Light Yellow UA Color) *NA*(03/10/17 5:13 PM) [facility] [id number] 22:13:00 Test Item Value Reference Range Interpretation Comments UA Mucus (test code = UA Mucus) Few /LPF [facility] [id number] 22:13:00 Test Item Value Reference Range Interpretation Comments UA RBC (test code = 27 See_Comment [Automa cruz message] The UA RBC) system which ge nerated this result transmit cruz reference range : <=2. The reference range was not used to interpr et this result as gee l/abnormal. [facility] [id number] 22:13:00 Test Item Value Reference Range Interpretation Comments UA Hyal Cast (test 1 See_Comment [Automat ed message] The code = UA Hyal Cast) system which generated this result transmit cruz reference range : <=2. The reference range was not used to interpr et this result as gee l/abnormal. [facility] [id number] 22:13:00 Test Item Value Reference Range Interpretation Comments UA Turbidity (test code = Clear (03/10/17 5:13 UA Turbidity) PM) [facility] [id number] 22:13:00 Test Item Value Reference Range Interpretation Comments UA Protein (test code = UA >=300 mg/dL Protein) [facility] [id number] 22:13:00 Test Item Value Reference Range Interpretation Comments UA pH (test code = UA pH) 6.0 5.0-8.0 [facility] [id number] 22:13:00 Test Item Value Reference Range Interpretation Comments UA Nitrite (test code Negative (03/10/17 5:13 = UA Nitrite) PM) [facility] [id number] 22:13:00 Test Item Value Reference Range Interpretation Comments UA Leuk Est (test code Trace *ABN*(03/10/17 = UA Leuk Est) 5:13 PM) [facility] [id number] 22:13:00 Test Item Value Reference Range Interpretation Comments UA Sq Epi (test code = UA Sq Occasional /LPF Epi) [facility] [id number] 22:13:00 Test Item Value Reference Range Interpretation Comments UA WBC (test code = 22 See_Comment [Automa cruz message] The UA WBC) system which ge nerated this result transmit cruz reference range : <=5. The reference range was not used to interpr et this result as gee l/abnormal. [facility]2014-02-28 09:12:00 Test Item Value Reference Range Interpretation Comments BUN (test code = BUN) 18 04- [facility]2014-02-28 09:12:00 Test Item Value Reference Range Interpretation Comments Creatinine Lvl (test code = Creatinine 2.3 0.5-1.4 Lvl) [facility]2014-02-28 09:12:00 Test Item Value Reference Range Interpretation Comments Glucose Lvl (test code = Glucose Lvl) 128 70-99 [facility]2014-02-28 09:12:00 Test Item Value Reference Range Interpretation Comments Chloride Lvl (test code = Chloride Lvl) 111 95-109 [facility]2014-02-28 09:12:00 Test Item Value Reference Range Interpretation Comments CO2 (test code = CO2) 25 24-32 [facility]2014-02-28 09:12:00 Test Item Value Reference Range Interpretation Comments AGAP (test code = AGAP) 10.8 10.0-20.0 [facility]2014-02-28 09:12:00 Test Item Value Reference Range Interpretation Comments Potassium Lvl (test code = Potassium 3.8 3.5-5.1 Lvl) [facility]2014-02-28 09:12:00 Test Item Value Reference Range Interpretation Comments Sodium Lvl (test code = Sodium Lvl) 143 135-145 [facility]2014-02-28 09:12:00 Test Item Value Reference Range Interpretation Comments Calcium Lvl (test code = Calcium Lvl) 8.4 8.5-10.5 [facility]2014-02-28 09:12:00 Test Item Value Reference Range Interpretation Comments eGFR (test code = eGFR) 32 [facility]2014-02-28 09:12:00 Test Item Value Reference Range Interpretation Comments Magnesium Lvl (test code = Magnesium 2.1 1.8-2.4 Lvl) [facility][id number] 09:12:00 Test Item Value Reference Range Interpretation Comments RBC X 10x6 (test code = RBC X 10x6) 4.66 4.70-6.10 [facility] HospitalZbrsimpPOYADVCQNX4462-07-58 09:12:00 Test Item Value Reference Range Interpretation Comments Hct (test code = Hct) 42.3 42.0-54.0 [facility] HospitalQcziomwIKMAJLOSDA8680-04-22 09:12:00 Test Item Value Reference Range Interpretation Comments MCH (test code = MCH) 30.0 pg 27.0-31.0 [facility] HospitalJwrocwwRZFQDYKGDE4296-69-63 09:12:00 Test Item Value Reference Range Interpretation Comments MCV (test code = MCV) 90.8 80.0-94.0 [facility] HospitalPpirnydCBESVGIHGR2048-39-97 09:12:00 Test Item Value Reference Range Interpretation Comments Hgb (test code = Hgb) 14.0 14.0-18.0 [facility] HospitalPbabofnUMCBZCSBWO0847-58-95 09:12:00 Test Item Value Reference Range Interpretation Comments RDW (test code = RDW) 15.2 11.5-14.5 [facility] HospitalEotjruqHKCYGIDNJK4833-31-11 09:12:00 Test Item Value Reference Range Interpretation Comments MCHC (test code = MCHC) 33.0 32.0-36.0 [facility] HospitalSflvbpzPWDFGGDYAD6910-95-42 09:12:00 Test Item Value Reference Range Interpretation Comments MPV (test code = MPV) 9.5 7.4-10.4 [facility] HospitalIvnaqjjSGYUTQSHSQ6769-88-32 09:12:00 Test Item Value Reference Range Interpretation Comments Platelet (test code = Platelet) 231 133-450 [facility] HospitalMbvzcsrGHQBYAQPQW9202-15-33 09:12:00 Test Item Value Reference Range Interpretation Comments WBC X 10x3 (test code = WBC X 10x3) 11.8 3.7-10.4 [facility]2014-02-28 09:12:00 Test Item Value Reference Range Interpretation Comments BUN (test code = BUN) 21 7-22 [facility]2014-02-28 09:12:00 Test Item Value Reference Range Interpretation Comments Creatinine Lvl (test code = Creatinine 2.3 0.5-1.4 Lvl) [facility]2014-02-28 09:12:00 Test Item Value Reference Range Interpretation Comments Glucose Lvl (test code = Glucose Lvl) 128 70-99 [facility]2014-02-28 09:12:00 Test Item Value Reference Range Interpretation Comments Chloride Lvl (test code = Chloride Lvl) 111 95-109 [facility]2014-02-28 09:12:00 Test Item Value Reference Range Interpretation Comments CO2 (test code = CO2) 25 24-32 [facility]2014-02-28 09:12:00 Test Item Value Reference Range Interpretation Comments AGAP (test code = AGAP) 10.8 10.0-20.0 [facility]2014-02-28 09:12:00 Test Item Value Reference Range Interpretation Comments Potassium Lvl (test code = Potassium 3.8 3.5-5.1 Lvl) [facility]2014-02-28 09:12:00 Test Item Value Reference Range Interpretation Comments Sodium Lvl (test code = Sodium Lvl) 143 135-145 [facility]2014-02-28 09:12:00 Test Item Value Reference Range Interpretation Comments Calcium Lvl (test code = Calcium Lvl) 8.4 8.5-10.5 [facility]2014-02-28 09:12:00 Test Item Value Reference Range Interpretation Comments eGFR (test code = eGFR) 32 [facility]2014-02-28 09:12:00 Test Item Value Reference Range Interpretation Comments Magnesium Lvl (test code = Magnesium 2.1 1.8-2.4 Lvl) [facility] HospitalUsndiexQUSUOFFOLC2828-85-38 09:12:00 Test Item Value Reference Range Interpretation Comments RBC X 10x6 (test code = RBC X 10x6) 4.66 4.70-6.10 [facility] HospitalLkslwpzFHQJZDMPWG3719-41-34 09:12:00 Test Item Value Reference Range Interpretation Comments Hct (test code = Hct) 42.3 42.0-54.0 [facility] HospitalAbukloiELEBVICBLL4666-67-07 09:12:00 Test Item Value Reference Range Interpretation Comments MCH (test code = MCH) 30.0 pg 27.0-31.0 [facility] HospitalIwdbtejDSZXITQLDW8289-07-11 09:12:00 Test Item Value Reference Range Interpretation Comments MCV (test code = MCV) 90.8 80.0-94.0 [facility] HospitalSwscfhmESQMBODCND3335-50-83 09:12:00 Test Item Value Reference Range Interpretation Comments Hgb (test code = Hgb) 14.0 14.0-18.0 [facility] HospitalCmdmeydNMTUBKNTZD4892-76-08 09:12:00 Test Item Value Reference Range Interpretation Comments RDW (test code = RDW) 15.2 11.5-14.5 [facility] HospitalCcoltgsBPCNECIQKV2017-97-98 09:12:00 Test Item Value Reference Range Interpretation Comments MCHC (test code = MCHC) 33.0 32.0-36.0 [facility] HospitalDulkmlhTHFEBUFHYD3634-57-37 09:12:00 Test Item Value Reference Range Interpretation Comments MPV (test code = MPV) 9.5 7.4-10.4 [facility] HospitalTuifluuGOODDBXNHY7494-91-11 09:12:00 Test Item Value Reference Range Interpretation Comments Platelet (test code = Platelet) 231 133-450 [facility] HospitalHusyaxeHXVYWXMFSW6984-55-13 09:12:00 Test Item Value Reference Range Interpretation Comments WBC X 10x3 (test code = WBC X 10x3) 11.8 3.7-10.4 [facility]2014-02-28 09:12:00 Test Item Value Reference Range Interpretation Comments BUN (test code = BUN) 21 7-22 [facility]2014-02-28 09:12:00 Test Item Value Reference Range Interpretation Comments Creatinine Lvl (test code = Creatinine 2.3 0.5-1.4 Lvl) [facility]2014-02-28 09:12:00 Test Item Value Reference Range Interpretation Comments Glucose Lvl (test code = Glucose Lvl) 128 70-99 [facility]2014-02-28 09:12:00 Test Item Value Reference Range Interpretation Comments Chloride Lvl (test code = Chloride Lvl) 111 95-109 [facility]2014-02-28 09:12:00 Test Item Value Reference Range Interpretation Comments CO2 (test code = CO2) 25 24-32 [facility]2014-02-28 09:12:00 Test Item Value Reference Range Interpretation Comments AGAP (test code = AGAP) 10.8 10.0-20.0 [facility]2014-02-28 09:12:00 Test Item Value Reference Range Interpretation Comments Potassium Lvl (test code = Potassium 3.8 3.5-5.1 Lvl) [facility]2014-02-28 09:12:00 Test Item Value Reference Range Interpretation Comments Sodium Lvl (test code = Sodium Lvl) 143 135-145 [facility]2014-02-28 09:12:00 Test Item Value Reference Range Interpretation Comments Calcium Lvl (test code = Calcium Lvl) 8.4 8.5-10.5 [facility]2014-02-28 09:12:00 Test Item Value Reference Range Interpretation Comments eGFR (test code = eGFR) 32 [facility]2014-02-28 09:12:00 Test Item Value Reference Range Interpretation Comments Magnesium Lvl (test code = Magnesium 2.1 1.8-2.4 Lvl) [facility] HospitalYtttkeaBYZWFMUGTR1590-29-90 09:12:00 Test Item Value Reference Range Interpretation Comments RBC X 10x6 (test code = RBC X 10x6) 4.66 4.70-6.10 [facility] HospitalDeieygaBILXFUNUGA7548-47-40 09:12:00 Test Item Value Reference Range Interpretation Comments Hct (test code = Hct) 42.3 42.0-54.0 [facility] HospitalJoebikaSSMSNELVHI2180-49-58 09:12:00 Test Item Value Reference Range Interpretation Comments MCH (test code = MCH) 30.0 pg 27.0-31.0 [facility] HospitalWeilcmiCLUIPHZUWN0847-12-58 09:12:00 Test Item Value Reference Range Interpretation Comments MCV (test code = MCV) 90.8 80.0-94.0 [facility] HospitalVealfvgFYGYMWPNRF8739-58-31 09:12:00 Test Item Value Reference Range Interpretation Comments Hgb (test code = Hgb) 14.0 14.0-18.0 [facility] HospitalOwkcmbfHAHYVANPLE7722-77-71 09:12:00 Test Item Value Reference Range Interpretation Comments RDW (test code = RDW) 15.2 11.5-14.5 [facility] HospitalAwxihqhWIMAHPKTSE4441-64-73 09:12:00 Test Item Value Reference Range Interpretation Comments MCHC (test code = MCHC) 33.0 32.0-36.0 [facility] HospitalTknowgcZVPFHBTRHG9783-86-83 09:12:00 Test Item Value Reference Range Interpretation Comments MPV (test code = MPV) 9.5 7.4-10.4 [facility] HospitalLhaytuqWZHWBIVFAN5202-90-81 09:12:00 Test Item Value Reference Range Interpretation Comments Platelet (test code = Platelet) 231 133-450 [facility] HospitalUhxlvloLQXGFVHINX6052-25-61 09:12:00 Test Item Value Reference Range Interpretation Comments WBC X 10x3 (test code = WBC X 10x3) 11.8 3.7-10.4 [facility]2014-02-27 08:27:00 Test Item Value Reference Range Interpretation Comments Magnesium Lvl (test code = Magnesium 1.8 1.8-2.4 Lvl) [facility]2014-02-27 08:27:00 Test Item Value Reference Range Interpretation Comments eGFR (test code = eGFR) 38 [facility]2014-02-27 08:27:00 Test Item Value Reference Range Interpretation Comments AGAP (test code = AGAP) 11.6 10.0-20.0 [facility]2014-02-27 08:27:00 Test Item Value Reference Range Interpretation Comments Calcium Lvl (test code = Calcium Lvl) 8.5 8.5-10.5 [facility]2014-02-27 08:27:00 Test Item Value Reference Range Interpretation Comments Potassium Lvl (test code = Potassium 3.6 3.5-5.1 Lvl) [place] 635094-02-27 08:27:00 Test Item Value Reference Range Interpretation Comments Sodium Lvl (test code = Sodium Lvl) 142 135-145 [facility]2014-02-27 08:27:00 Test Item Value Reference Range Interpretation Comments Chloride Lvl (test code = Chloride Lvl) 111 95-109 [facility]2014-02-27 08:27:00 Test Item Value Reference Range Interpretation Comments CO2 (test code = CO2) 23 24-32 [facility]2014-02-27 08:27:00 Test Item Value Reference Range Interpretation Comments Creatinine Lvl (test code = Creatinine 2.0 0.5-1.4 Lvl) [facility]2014-02-27 08:27:00 Test Item Value Reference Range Interpretation Comments BUN (test code = BUN) 17 7-22 [place] 635094-02-27 08:27:00 Test Item Value Reference Range Interpretation Comments Glucose Lvl (test code = Glucose Lvl) 125 70-99 [facility] HospitalThsietvLBTFFRCEYB8745-06-35 08:27:00 Test Item Value Reference Range Interpretation Comments Hgb (test code = Hgb) 13.9 14.0-18.0 [facility] HospitalThklcgsMURWLOZNTK8915-72-99 08:27:00 Test Item Value Reference Range Interpretation Comments WBC X 10x3 (test code = WBC X 10x3) 12.2 3.7-10.4 [facility] HospitalSyixyevXZSKMUFRVS0874-09-52 08:27:00 Test Item Value Reference Range Interpretation Comments Hct (test code = Hct) 41.8 42.0-54.0 [facility] HospitalInmwqyhTVSCWJNWRO8954-64-72 08:27:00 Test Item Value Reference Range Interpretation Comments MCV (test code = MCV) 90.7 80.0-94.0 [facility] HospitalZkhbatdICNIXVXQCH9505-03-72 08:27:00 Test Item Value Reference Range Interpretation Comments MCH (test code = MCH) 30.2 pg 27.0-31.0 [facility] HospitalAlxyeduOQVRJJDPLF2223-21-76 08:27:00 Test Item Value Reference Range Interpretation Comments MCHC (test code = MCHC) 33.3 32.0-36.0 [facility] HospitalJqdemhuUYGWUISKBN0967-58-05 08:27:00 Test Item Value Reference Range Interpretation Comments RBC X 10x6 (test code = RBC X 10x6) 4.61 4.70-6.10 [facility] HospitalJsrtnqxBGHIYMRLON7788-86-59 08:27:00 Test Item Value Reference Range Interpretation Comments Platelet (test code = Platelet) 209 133-450 [facility] HospitalCdiendiVARDCPTJGA9880-74-91 08:27:00 Test Item Value Reference Range Interpretation Comments RDW (test code = RDW) 15.4 11.5-14.5 [facility] HospitalJujfdexDFFBQESPMP4118-17-97 08:27:00 Test Item Value Reference Range Interpretation Comments MPV (test code = MPV) 9.7 7.4-10.4 [facility]2014-02-27 08:27:00 Test Item Value Reference Range Interpretation Comments Magnesium Lvl (test code = Magnesium 1.8 1.8-2.4 Lvl) [facility]2014-02-27 08:27:00 Test Item Value Reference Range Interpretation Comments eGFR (test code = eGFR) 38 [facility]2014-02-27 08:27:00 Test Item Value Reference Range Interpretation Comments AGAP (test code = AGAP) 11.6 10.0-20.0 [facility]2014-02-27 08:27:00 Test Item Value Reference Range Interpretation Comments Calcium Lvl (test code = Calcium Lvl) 8.5 8.5-10.5 [facility]2014-02-27 08:27:00 Test Item Value Reference Range Interpretation Comments Potassium Lvl (test code = Potassium 3.6 3.5-5.1 Lvl) [facility]2014-02-27 08:27:00 Test Item Value Reference Range Interpretation Comments Sodium Lvl (test code = Sodium Lvl) 142 135-145 [facility]2014-02-27 08:27:00 Test Item Value Reference Range Interpretation Comments Chloride Lvl (test code = Chloride Lvl) 111 95-109 [facility]2014-02-27 08:27:00 Test Item Value Reference Range Interpretation Comments CO2 (test code = CO2) 23 24-32 [facility]2014-02-27 08:27:00 Test Item Value Reference Range Interpretation Comments Creatinine Lvl (test code = Creatinine 2.0 0.5-1.4 Lvl) [place] 635094-02-27 08:27:00 Test Item Value Reference Range Interpretation Comments BUN (test code = BUN) 17 7-22 [facility]2014-02-27 08:27:00 Test Item Value Reference Range Interpretation Comments Glucose Lvl (test code = Glucose Lvl) 125 70-99 [facility] HospitalVhapznsYWRQMPNYWK2393-78-77 08:27:00 Test Item Value Reference Range Interpretation Comments Hgb (test code = Hgb) 13.9 14.0-18.0 [facility] HospitalCtqicfrEWXUTERRUJ6729-91-84 08:27:00 Test Item Value Reference Range Interpretation Comments WBC X 10x3 (test code = WBC X 10x3) 12.2 3.7-10.4 [facility] HospitalIwhxgbvMVADTEVSRS6064-51-05 08:27:00 Test Item Value Reference Range Interpretation Comments Hct (test code = Hct) 41.8 42.0-54.0 [facility] HospitalNvyyrrfNWHIGMPMOY7513-84-06 08:27:00 Test Item Value Reference Range Interpretation Comments MCV (test code = MCV) 90.7 80.0-94.0 [facility] HospitalCnibgyeINYTWXSPDF1996-92-06 08:27:00 Test Item Value Reference Range Interpretation Comments MCH (test code = MCH) 30.2 pg 27.0-31.0 [facility] HospitalJwjwsdpRADKVABCEB2627-47-76 08:27:00 Test Item Value Reference Range Interpretation Comments MCHC (test code = MCHC) 33.3 32.0-36.0 [facility] HospitalQgydjjoXADMEYWQHH1223-01-54 08:27:00 Test Item Value Reference Range Interpretation Comments RBC X 10x6 (test code = RBC X 10x6) 4.61 4.70-6.10 [facility] HospitalBvbeoqeRDGMGTSSPI4809-13-16 08:27:00 Test Item Value Reference Range Interpretation Comments Platelet (test code = Platelet) 209 133-450 [facility] HospitalNjzicfwSPVFZDMBKQ7890-78-05 08:27:00 Test Item Value Reference Range Interpretation Comments RDW (test code = RDW) 15.4 11.5-14.5 [place] 656454-02-27 08:27:00 Test Item Value Reference Range Interpretation Comments MPV (test code = MPV) 9.7 7.4-10.4 [facility]2014-02-27 08:27:00 Test Item Value Reference Range Interpretation Comments Magnesium Lvl (test code = Magnesium 1.8 1.8-2.4 Lvl) [facility]2014-02-27 08:27:00 Test Item Value Reference Range Interpretation Comments eGFR (test code = eGFR) 38 [facility]2014-02-27 08:27:00 Test Item Value Reference Range Interpretation Comments AGAP (test code = AGAP) 11.6 10.0-20.0 [facility]2014-02-27 08:27:00 Test Item Value Reference Range Interpretation Comments Calcium Lvl (test code = Calcium Lvl) 8.5 8.5-10.5 [place] 635094-02-27 08:27:00 Test Item Value Reference Range Interpretation Comments Potassium Lvl (test code = Potassium 3.6 3.5-5.1 Lvl) [facility]2014-02-27 08:27:00 Test Item Value Reference Range Interpretation Comments Sodium Lvl (test code = Sodium Lvl) 142 135-145 [facility]2014-02-27 08:27:00 Test Item Value Reference Range Interpretation Comments Chloride Lvl (test code = Chloride Lvl) 111 95-109 [facility]2014-02-27 08:27:00 Test Item Value Reference Range Interpretation Comments CO2 (test code = CO2) 23 24-32 [facility]2014-02-27 08:27:00 Test Item Value Reference Range Interpretation Comments Creatinine Lvl (test code = Creatinine 2.0 0.5-1.4 Lvl) [facility]2014-02-27 08:27:00 Test Item Value Reference Range Interpretation Comments BUN (test code = BUN) 17 7-22 [facility]2014-02-27 08:27:00 Test Item Value Reference Range Interpretation Comments Glucose Lvl (test code = Glucose Lvl) 125 70-99 [facility] HospitalMwwstcyFTWSFRNJID8169-72-26 08:27:00 Test Item Value Reference Range Interpretation Comments Hgb (test code = Hgb) 13.9 14.0-18.0 [place] 656454-02-27 08:27:00 Test Item Value Reference Range Interpretation Comments WBC X 10x3 (test code = WBC X 10x3) 12.2 3.7-10.4 [facility] HospitalTuidbpxWGVJCESNTF9391-17-36 08:27:00 Test Item Value Reference Range Interpretation Comments Hct (test code = Hct) 41.8 42.0-54.0 [facility] HospitalWophfzhKPJBNPHQQG7722-30-40 08:27:00 Test Item Value Reference Range Interpretation Comments MCV (test code = MCV) 90.7 80.0-94.0 [facility] HospitalDaiftcwXEWCHFUMRD0656-76-39 08:27:00 Test Item Value Reference Range Interpretation Comments MCH (test code = MCH) 30.2 pg 27.0-31.0 [facility] HospitalNrtttaoDEWUYAZFGB0328-31-82 08:27:00 Test Item Value Reference Range Interpretation Comments MCHC (test code = MCHC) 33.3 32.0-36.0 [facility] HospitalOxrcibzQUBUAVROTS2568-87-01 08:27:00 Test Item Value Reference Range Interpretation Comments RBC X 10x6 (test code = RBC X 10x6) 4.61 4.70-6.10 [facility] HospitalWcxrkziINBNBLTSSU6985-78-80 08:27:00 Test Item Value Reference Range Interpretation Comments Platelet (test code = Platelet) 209 133-450 [facility] HospitalVufslfhPSFBQTJBUZ9589-65-52 08:27:00 Test Item Value Reference Range Interpretation Comments RDW (test code = RDW) 15.4 11.5-14.5 [facility] HospitalVvpvvyjNYCDKAAAXE2087-07-95 08:27:00 Test Item Value Reference Range Interpretation Comments MPV (test code = MPV) 9.7 7.4-10.4 [facility]2014-02-26 18:49:00 Test Item Value Reference Range Interpretation Comments Calcium Lvl (test code = Calcium Lvl) 8.2 8.5-10.5 [facility]2014-02-26 18:49:00 Test Item Value Reference Range Interpretation Comments AGAP (test code = AGAP) 11.9 10.0-20.0 [facility]2014-02-26 18:49:00 Test Item Value Reference Range Interpretation Comments CO2 (test code = CO2) 23 24-32 [facility]2014-02-26 18:49:00 Test Item Value Reference Range Interpretation Comments eGFR (test code = eGFR) 41 [facility]2014-02-26 18:49:00 Test Item Value Reference Range Interpretation Comments Glucose Lvl (test code = Glucose Lvl) 129 70-99 [facility]2014-02-26 18:49:00 Test Item Value Reference Range Interpretation Comments BUN (test code = BUN) 17 7-22 [facility]2014-02-26 18:49:00 Test Item Value Reference Range Interpretation Comments Creatinine Lvl (test code = Creatinine 1.9 0.5-1.4 Lvl) [facility]2014-02-26 18:49:00 Test Item Value Reference Range Interpretation Comments Potassium Lvl (test code = Potassium 3.9 3.5-5.1 Lvl) [facility]2014-02-26 18:49:00 Test Item Value Reference Range Interpretation Comments Sodium Lvl (test code = Sodium Lvl) 142 135-145 [facility]2014-02-26 18:49:00 Test Item Value Reference Range Interpretation Comments Chloride Lvl (test code = Chloride Lvl) 111 95-109 [facility]xpjkuwJRFEBX8873-36-61 18:49:00 Test Item Value Reference Range Interpretation Comments VLDL (test code = VLDL) 25 [facility]MzprhhdXNDUPT4546-55-62 18:49:00 Test Item Value Reference Range Interpretation Comments LDL (Calculated) (test code = LDL 98 (Calculated)) [facility] 18:49:00 Test Item Value Reference Range Interpretation Comments HDL (test code = HDL) 54 [facility]rihkgiQNGNQL4694-93-76 18:49:00 Test Item Value Reference Range Interpretation Comments Chol (test code = Chol) 177 [facility]WrmxvwlARYCOF0474-89-88 18:49:00 Test Item Value Reference Range Interpretation Comments Trig (test code = Trig) 126 [facility] [id number] 18:49:00 Test Item Value Reference Range Interpretation Comments CHD Risk (test code = CHD Risk) 3.28 4.00-7.30 [facility]2014-02-26 18:49:00 Test Item Value Reference Range Interpretation Comments Calcium Lvl (test code = Calcium Lvl) 8.2 8.5-10.5 [facility]2014-02-26 18:49:00 Test Item Value Reference Range Interpretation Comments AGAP (test code = AGAP) 11.9 10.0-20.0 [facility]2014-02-26 18:49:00 Test Item Value Reference Range Interpretation Comments CO2 (test code = CO2) 23 24-32 [facility]2014-02-26 18:49:00 Test Item Value Reference Range Interpretation Comments eGFR (test code = eGFR) 41 [facility]2014-02-26 18:49:00 Test Item Value Reference Range Interpretation Comments Glucose Lvl (test code = Glucose Lvl) 129 70-99 [facility]2014-02-26 18:49:00 Test Item Value Reference Range Interpretation Comments BUN (test code = BUN) 17 7-22 [facility]2014-02-26 18:49:00 Test Item Value Reference Range Interpretation Comments Creatinine Lvl (test code = Creatinine 1.9 0.5-1.4 Lvl) [facility]2014-02-26 18:49:00 Test Item Value Reference Range Interpretation Comments Potassium Lvl (test code = Potassium 3.9 3.5-5.1 Lvl) [facility]2014-02-26 18:49:00 Test Item Value Reference Range Interpretation Comments Sodium Lvl (test code = Sodium Lvl) 142 135-145 [facility]2014-02-26 18:49:00 Test Item Value Reference Range Interpretation Comments Chloride Lvl (test code = Chloride Lvl) 111 95-109 [facility] 18:[facility]00 Test Item Value Reference Range Interpretation Comments VLDL (test code = VLDL) 25 [facility]UuryxjvDVMCJZ3236-90-25 18:49:00 Test Item Value Reference Range Interpretation Comments LDL (Calculated) (test code = LDL 98 (Calculated)) [facility]QmepsabNAASDS6518-04-57 18:49:00 Test Item Value Reference Range Interpretation Comments HDL (test code = HDL) 54 [facility]VxykqjwUIHJYI5069-29-67 18:49:00 Test Item Value Reference Range Interpretation Comments Chol (test code = Chol) 177 [facility]MxxorwqBXHSHP5339-50-36 18:49:00 Test Item Value Reference Range Interpretation Comments Trig (test code = Trig) 126 [facility]VpsgjzkBCQKUT8114-62-69 18:49:00 Test Item Value Reference Range Interpretation Comments CHD Risk (test code = CHD Risk) 3.28 4.00-7.30 [facility]2014-02-26 18:49:00 Test Item Value Reference Range Interpretation Comments Calcium Lvl (test code = Calcium Lvl) 8.2 8.5-10.5 [facility]2014-02-26 18:49:00 Test Item Value Reference Range Interpretation Comments AGAP (test code = AGAP) 11.9 10.0-20.0 [facility]2014-02-26 18:49:00 Test Item Value Reference Range Interpretation Comments CO2 (test code = CO2) 23 24-32 [facility]2014-02-26 18:49:00 Test Item Value Reference Range Interpretation Comments eGFR (test code = eGFR) 41 [facility]2014-02-26 18:49:00 Test Item Value Reference Range Interpretation Comments Glucose Lvl (test code = Glucose Lvl) 129 70-99 [facility]2014-02-26 18:49:00 Test Item Value Reference Range Interpretation Comments BUN (test code = BUN) 17 7- [facility]2014-02-26 18:49:00 Test Item Value Reference Range Interpretation Comments Creatinine Lvl (test code = Creatinine 1.9 0.5-1.4 Lvl) [facility]2014-02-26 18:49:00 Test Item Value Reference Range Interpretation Comments Potassium Lvl (test code = Potassium 3.9 3.5-5.1 Lvl) [facility]2014-02-26 18:49:00 Test Item Value Reference Range Interpretation Comments Sodium Lvl (test code = Sodium Lvl) 142 135-145 [facility]2014-02-26 18:49:00 Test Item Value Reference Range Interpretation Comments Chloride Lvl (test code = Chloride Lvl) 111 95-109 [facility] Di[id number] 18:49:00 Test Item Value Reference Range Interpretation Comments VLDL (test code = VLDL) 25 [facility]EwkpocaHMDPQB6909-57-08 18:49:00 Test Item Value Reference Range Interpretation Comments LDL (Calculated) (test code = LDL 98 (Calculated)) [id number] 18:49:00 Test Item Value Reference Range Interpretation Comments HDL (test code = HDL) 54 [place] [address]-02-26 18:49:00 Test Item Value Reference Range Interpretation Comments Chol (test code = Chol) 177 [facility] DistrictReikynzAYCILH0732-06-62 18:49:00 Test Item Value Reference Range Interpretation Comments Trig (test code = Trig) 126 [facility]DcpvdmiKSLMDU2391-06-44 18:49:00 Test Item Value Reference Range Interpretation Comments CHD Risk (test code = CHD Risk) 3.28 4.00-7.30 [facility] [id number] 10:05:14 Test Item Value Reference Range Interpretation Comments Micro? (test code = Performed *NA*(11/24/2013 Micro?) 04:05:14 [facility]) [facility] [id number] 10:05:14 Test Item Value Reference Range Interpretation Comments UA Mucus (test code = UA Mucus) Few /LPF [facility] [id number] 10:05:14 Test Item Value Reference Range Interpretation Comments UA RBC (test code = 1 See_Comment [Automa cruz message] The UA RBC) system which ge nerated this result transmit cruz reference range : <=2. The reference range was not used to interpr et this result as gee l/abnormal. [facility] [id number] 10:05:14 Test Item Value Reference Range Interpretation Comments UA Urobilinogen (test code = UA <=1.0 mg/dL 0.1-1.0 Urobilinogen) [facility] [id number] 10:05:14 Test Item Value Reference Range Interpretation Comments UA Turbidity (test code = Clear (11/24/2013 UA Turbidity) 04:05:14 [facility]) [facility] [id number] 10:05:14 Test Item Value Reference Range Interpretation Comments UA Protein (test code = UA >=300 mg/dL Protein) [facility] [id number] 10:05:14 Test Item Value Reference Range Interpretation Comments UA pH (test code = UA pH) 6.5 5.0-8.0 [facility] [id number] 10:05:14 Test Item Value Reference Range Interpretation Comments UA Spec Grav (test code = UA Spec Grav) 1.010 [facility] [id number] 10:05:14 Test Item Value Reference Range Interpretation Comments UA Color (test code = Light Yellow UA Color) *NA*(11/24/2013 04:05:14 [facility]) [facility] [id number] 10:05:14 Test Item Value Reference Range Interpretation Comments UA WBC (test code = 2 See_Comment [Automa cruz message] The UA WBC) system which ge nerated this result transmit cruz reference range : <=5. The reference range was not used to interpr et this result as gee l/abnormal. [facility] [id number] 10:05:14 Test Item Value Reference Range Interpretation Comments UA Sq Epi (test code = UA Sq Occasional /LPF Epi) [facility] [id number] 10:05:14 Test Item Value Reference Range Interpretation Comments UA Leuk Est (test Negative (11/24/2013 code = UA Leuk Est) 04:05:14 [facility]/[place]) [facility] [id number] 10:05:14 Test Item Value Reference Range Interpretation Comments UA Nitrite (test code Negative (11/24/2013 = UA Nitrite) 04:05:14 [facility] [id number] 10:05:14 Test Item Value Reference Range Interpretation Comments UA Blood (test code = Small *ABN*(11/24/2013 UA Blood) 04:05:14 [facility]) [facility] [id number] 10:05:14 Test Item Value Reference Range Interpretation Comments UA Ketones (test code = UA Negative mg/dL Ketones) [facility] [id number] 10:05:14 Test Item Value Reference Range Interpretation Comments UA Glucose (test code = UA Glucose) 30 mg/dL [facility] [id number] 10:05:14 Test Item Value Reference Range Interpretation Comments UA Bili (test code = Negative *NA*(11/24/2013 UA Bili) 04:05:14 [facility]) [facility] [id number] 10:05:14 Test Item Value Reference Range Interpretation Comments Micro? (test code = Performed *NA*(11/24/2013 Micro?) 04:05:14 [facility]) [facility] [id number] 10:05:14 Test Item Value Reference Range Interpretation Comments UA Mucus (test code = UA Mucus) Few /LPF [facility] [id number] 10:05:14 Test Item Value Reference Range Interpretation Comments UA RBC (test code = 1 See_Comment [Automa cruz message] The UA RBC) system which ge nerated this result transmit cruz reference range : <=2. The reference range was not used to interpr et this result as gee l/abnormal. [facility] [id number] 10:05:14 Test Item Value Reference Range Interpretation Comments UA Urobilinogen (test code = UA <=1.0 mg/dL 0.1-1.0 Urobilinogen) [facility] [id number] 10:05:14 Test Item Value Reference Range Interpretation Comments UA Turbidity (test code = Clear (11/24/2013 UA Turbidity) 04:05:14 [facility]) [facility] [id number] 10:05:14 Test Item Value Reference Range Interpretation Comments UA Protein (test code = UA >=300 mg/dL Protein) [facility] [id number] 10:05:14 Test Item Value Reference Range Interpretation Comments UA pH (test code = UA pH) 6.5 5.0-8.0 [facility] [id number] 10:05:14 Test Item Value Reference Range Interpretation Comments UA Spec Grav (test code = UA Spec Grav) 1.010 [facility] [id number] 10:05:14 Test Item Value Reference Range Interpretation Comments UA Color (test code = Light Yellow UA Color) *NA*(11/24/2013 04:05:14 [facility] [id number] 10:05:14 Test Item Value Reference Range Interpretation Comments UA WBC (test code = 2 See_Comment [Automa cruz message] The UA WBC) system which ge nerated this result transmit cruz reference range : <=5. The reference range was not used to interpr et this result as gee l/abnormal. [facility] [id number] 10:05:14 Test Item Value Reference Range Interpretation Comments UA Sq Epi (test code = UA Sq Occasional /LPF Epi) [facility] [id number] 10:05:14 Test Item Value Reference Range Interpretation Comments UA Leuk Est (test Negative (11/24/2013 code = UA Leuk Est) 04:05:14 [facility] [id number] 10:05:14 Test Item Value Reference Range Interpretation Comments UA Nitrite (test code Negative (11/24/2013 = UA Nitrite) 04:05:14 [facility] [id number] 10:05:14 Test Item Value Reference Range Interpretation Comments UA Blood (test code = Small *ABN*(11/24/2013 UA Blood) 04:05:14 [facility]) [facility] [id number] 10:05:14 Test Item Value Reference Range Interpretation Comments UA Ketones (test code = UA Negative mg/dL Ketones) [facility] [id number] 10:05:14 Test Item Value Reference Range Interpretation Comments UA Glucose (test code = UA Glucose) 30 mg/dL [facility] [id number] 10:05:14 Test Item Value Reference Range Interpretation Comments UA Bili (test code = Negative *NA*(11/24/2013 UA Bili) 04:05:14 [facility] [id number] 10:05:14 Test Item Value Reference Range Interpretation Comments UA Leuk Est (test Negative (11/24/2013 code = UA Leuk Est) 04:05:14 [facility]) [facility] [id number] 10:05:14 Test Item Value Reference Range Interpretation Comments UA Nitrite (test code Negative (11/24/2013 = UA Nitrite) 04:05:14 [facility] [id number] 10:05:14 Test Item Value Reference Range Interpretation Comments UA Blood (test code = Small *ABN*(11/24/2013 UA Blood) 04:05:14 [facility]) [facility] [id number] 10:05:14 Test Item Value Reference Range Interpretation Comments UA Ketones (test code = UA Negative mg/dL Ketones) [facility] [id number] 10:05:14 Test Item Value Reference Range Interpretation Comments UA Glucose (test code = UA Glucose) 30 mg/dL [facility] [id number] 10:05:14 Test Item Value Reference Range Interpretation Comments UA Bili (test code = Negative *NA*(11/24/2013 UA Bili) 04:05:14 [facility]) [facility] [id number] 10:05:14 Test Item Value Reference Range Interpretation Comments Micro? (test code = Performed *NA*(11/24/2013 Micro?) 04:05:14 [facility]) [facility] [id number] 10:05:14 Test Item Value Reference Range Interpretation Comments UA Mucus (test code = UA Mucus) Few /LPF [facility] [id number] 10:05:14 Test Item Value Reference Range Interpretation Comments UA RBC (test code = 1 See_Comment [Automa cruz message] The UA RBC) system which ge nerated this result transmit cruz reference range : <=2. The reference range was not used to interpr et this result as gee l/abnormal. [facility] [id number] 10:05:14 Test Item Value Reference Range Interpretation Comments UA Urobilinogen (test code = UA <=1.0 mg/dL 0.1-1.0 Urobilinogen) [facility] [id number] 10:05:14 Test Item Value Reference Range Interpretation Comments UA Turbidity (test code = Clear (11/24/2013 UA Turbidity) 04:05:14 [facility]) [facility] [id number] 10:05:14 Test Item Value Reference Range Interpretation Comments UA Protein (test code = UA >=300 mg/dL Protein) [facility] [id number] 10:05:14 Test Item Value Reference Range Interpretation Comments UA pH (test code = UA pH) 6.5 5.0-8.0 [facility] [id number] 10:05:14 Test Item Value Reference Range Interpretation Comments UA Spec Grav (test code = UA Spec Grav) 1.010 [facility] [id number] 10:05:14 Test Item Value Reference Range Interpretation Comments UA Color (test code = Light Yellow UA Color) *NA*(11/24/2013 04:05:14 [facility] [id number] 10:05:14 Test Item Value Reference Range Interpretation Comments UA WBC (test code = 2 See_Comment [Automa cruz message] The UA WBC) system which ge nerated this result transmit cruz reference range : <=5. The reference range was not used to interpr et this result as gee l/abnormal. [facility] [id number] 10:05:14 Test Item Value Reference Range Interpretation Comments UA Sq Epi (test code = UA Sq Occasional /LPF Epi) [facility] [id number] 09:17:00 Test Item Value Reference Range Interpretation Comments Alk Phos (test code = Alk Phos) 108 39-136 [facility] [id number] 09:17:00 Test Item Value Reference Range Interpretation Comments ALANINE AMINOTRANSFERASE 20 See_Comment [A utomated message] (test code = ALANINE The sys tem which AMINOTRANSFERASE) generated this result transmitted ref erence range: <=65. Th e reference range was not used to int erpret this result as normal/abnormal . [facility] [id number] 09:17:00 Test Item Value Reference Range Interpretation Comments A/G Ratio (test code = A/G Ratio) 0.6 0.7-1.6 [facility] [id number] 09:17:00 Test Item Value Reference Range Interpretation Comments Globulin (test code = Globulin) 4.6 2.0-4.0 [facility] [id number] 09:17:00 Test Item Value Reference Range Interpretation Comments B/C Ratio (test code = B/C Ratio) 11 6-25 [id number] 09:17:00 Test Item Value Reference Range Interpretation Comments Basophils # (test code 0.0 See_Comment [Aut omated message] The = Basophils #) system which generated this result tra nsmitted reference range : <=0.2. The reference r jillian was not used to int erpret this result as normal/abnormal . [facility] D[id number] 09:17:00 Test Item Value Reference Range Interpretation Comments Eosinophils # (test code 0.0 See_Comment [A utomated message] The = Eosinophils #) system whic h generated this result tra nsmitted reference range : <=0.5. The reference r jillian was not used to int erpret this result as normal/abnormal . [facility] [id number] 09:17:00 Test Item Value Reference Range Interpretation Comments Monocytes # (test code 0.4 See_Comment [Aut omated message] The = Monocytes #) system which generated this result tra nsmitted reference range : <=0.8. The reference r jillian was not used to int erpret this result as normal/abnormal . [facility] HospitalJekuchwBXQGFQVZTR4993-96-17 09:17:00 Test Item Value Reference Range Interpretation Comments Lymphocytes (test code = Lymphocytes) 15.7 20.0-40.0 [facility] HospitalK[id number] 09:17:00 Test Item Value Reference Range Interpretation Comments Plt Morph (test code = Normal (11/23/2013 Plt Morph) 03:17:00 [facility]) [facility] H[id number] 09:17:00 Test Item Value Reference Range Interpretation Comments Segs (test code = Segs) 76.6 45.0-75.0 [facility] Hos[id number] 09:17:00 Test Item Value Reference Range Interpretation Comments Lymphocytes # (test code = Lymphocytes 1.0 1.0-5.5 #) [facility] HospitalQurzusvKUABAJDXGE7572-37-64 09:17:00 Test Item Value Reference Range Interpretation Comments Basophils (test code = 0.2 See_Comment [Aut omated message] The Basophils) system which ge nerated this result tra nsmitted reference range : <=1.0. The reference r jillian was not used to int erpret this result as normal/abnormal . [facility] HospitalLitvbkgBSKCCLGQLK0863-19-41 09:17:00 Test Item Value Reference Range Interpretation Comments Segs-Bands # (test code = Segs-Bands #) 4.7 1.5-8.1 [facility] HospitalVkjkrzuSCYPNDGRSE4747-24-18 09:17:00 Test Item Value Reference Range Interpretation Comments RBC Morph (test code = Normal (11/23/2013 RBC Morph) 03:17:00 [facility] H[id number] 09:17:00 Test Item Value Reference Range Interpretation Comments Eosinophils (test code = 0.7 See_Comment [A utomated message] The Eosinophils) system which ge nerated this result tra nsmitted reference range : <=4.0. The reference r jillian was not used to int erpret this result as normal/abnormal . [facility] Hospit[id number] 09:17:00 Test Item Value Reference Range Interpretation Comments Monocytes (test code = Monocytes) 6.8 2.0-12.0 [facility] HospitalTxeljmqNVKDVJTGJN5581-92-12 09:17:00 Test Item Value Reference Range Interpretation Comments PROTIME (test code = PROTIME) 13.4 s 12.0-14.7 [facility] HospitalVjvuleyLEYXFHWSFD0489-63-29 09:17:00 Test Item Value Reference Range Interpretation Comments INR (test code = INR) 1.03 0.85-1.17 [facility] HospitalDpmivtpDULOWOHHRS9864-78-24 09:17:00 Test Item Value Reference Range Interpretation Comments MPV (test code = MPV) 9.9 7.4-10.4 [facility] HospitalEjhgdtbRJSLDAWAUS9613-85-79 09:17:00 Test Item Value Reference Range Interpretation Comments Platelet (test code = Platelet) 221 133-450 [facility] HospitalPabudtjSPCWZYVWEV7875-51-67 09:17:00 Test Item Value Reference Range Interpretation Comments MCHC (test code = MCHC) 32.7 32.0-36.0 [facility] HospitalTbqsepoOZFWEFMIWS3478-14-59 09:17:00 Test Item Value Reference Range Interpretation Comments MCH (test code = MCH) 30.0 pg 27.0-31.0 [facility] HospitalSufvnjvDTEIYHTDRV1110-55-32 09:17:00 Test Item Value Reference Range Interpretation Comments RDW (test code = RDW) 14.7 11.5-14.5 [facility] Ho[id number] 09:17:00 Test Item Value Reference Range Interpretation Comments WBC X 10x3 (test code = WBC X 10x3) 6.1 3.7-10.4 [facility] Hospit[id number] 09:17:00 Test Item Value Reference Range Interpretation Comments RBC X 10x6 (test code = RBC X 10x6) 4.88 4.70-6.10 [facility] HospitalLiwtiskJIYBQHOLOI1125-92-53 09:17:00 Test Item Value Reference Range Interpretation Comments Hgb (test code = Hgb) 14.6 14.0-18.0 [facility] HospitalRymguhfSRNDMHKPUM9598-29-61 09:17:00 Test Item Value Reference Range Interpretation Comments MCV (test code = MCV) 91.6 80.0-94.0 [facility] HospitalZarvjlvWWZTVZGNBK0786-94-29 09:17:00 Test Item Value Reference Range Interpretation Comments Hct (test code = Hct) 44.6 42.0-54.0 [facility]2014-02-25 09:17:00 Test Item Value Reference Range Interpretation Comments Magnesium Lvl (test code = Magnesium 2.0 1.8-2.4 Lvl) [facility]2014-02-25 09:17:00 Test Item Value Reference Range Interpretation Comments Phosphorus (test code = Phosphorus) 2.5 2.5-4.5 [facility]2014-02-25 09:17:00 Test Item Value Reference Range Interpretation Comments Total Protein (test code = Total 7.3 6.4-8.4 Protein) [facility]2014-02-25 09:17:00 Test Item Value Reference Range Interpretation Comments Albumin Lvl (test code = Albumin Lvl) 2.7 3.5-5.0 [facility]2014-02-25 09:17:00 Test Item Value Reference Range Interpretation Comments ASPARTATE TRANSAMINASE 21 See_Comment [Aut omated message] (test code = ASPARTATE The s ystem which TRANSAMINASE) generated this result transmitted ref erence range: <=37. Th e reference range was not used to interpr et this result as normal/abnormal . [facility]2014-02-25 09:17:00 Test Item Value Reference Range Interpretation Comments Bili Total (test code = Bili Total) 0.6 0.2-1.3 [facility]2014-02-25 09:17:00 Test Item Value Reference Range Interpretation Comments Alk Phos (test code = Alk Phos) 108 39-136 [facility]2014-02-25 09:17:00 Test Item Value Reference Range Interpretation Comments ALANINE AMINOTRANSFERASE 20 See_Comment [A utomated message] (test code = ALANINE The sys tem which AMINOTRANSFERASE) generated this result transmitted ref erence range: <=65. Th e reference range was not used to int erpret this result as normal/abnormal . [facility]2014-02-25 09:17:00 Test Item Value Reference Range Interpretation Comments A/G Ratio (test code = A/G Ratio) 0.6 0.7-1.6 [facility]2014-02-25 09:17:00 Test Item Value Reference Range Interpretation Comments Globulin (test code = Globulin) 4.6 2.0-4.0 [facility]2014-02-25 09:17:00 Test Item Value Reference Range Interpretation Comments B/C Ratio (test code = B/C Ratio) 11 03-23 [facility] Hospit[id number] 09:17:00 Test Item Value Reference Range Interpretation Comments Basophils # (test code 0.0 See_Comment [Aut omated message] The = Basophils #) system which generated this result tra nsmitted reference range : <=0.2. The reference r jillian was not used to int erpret this result as normal/abnormal . [facility] HospitalBimihixPRTLEJJOGF9533-30-48 09:17:00 Test Item Value Reference Range Interpretation Comments Eosinophils # (test code 0.0 See_Comment [A utomated message] The = Eosinophils #) system whic h generated this result tra nsmitted reference range : <=0.5. The reference r jillian was not used to int erpret this result as normal/abnormal . [facility]rmlajhPIXZXCNYCU5649-90-93 09:17:00 Test Item Value Reference Range Interpretation Comments Monocytes # (test code 0.4 See_Comment [Aut omated message] The = Monocytes #) system which generated this result tra nsmitted reference range : <=0.8. The reference r jillian was not used to int erpret this result as normal/abnormal . [facility] HospitalYhxzymgFSDDXLYFUG0446-31-47 09:17:00 Test Item Value Reference Range Interpretation Comments Lymphocytes (test code = Lymphocytes) 15.7 20.0-40.0 [facility] HospitalMabnbihATIWQQRIDL3446-78-62 09:17:00 Test Item Value Reference Range Interpretation Comments Plt Morph (test code = Normal (11/23/2013 Plt Morph) 03:17:00 [facility] HospitalFuvnjelPRPVHABJHZ1674-68-78 09:17:00 Test Item Value Reference Range Interpretation Comments Segs (test code = Segs) 76.6 45.0-75.0 [facility] HospitalNkpowbnZUYKKPZETS8304-56-04 09:17:00 Test Item Value Reference Range Interpretation Comments Lymphocytes # (test code = Lymphocytes 1.0 1.0-5.5 #) [facility] HospitalWnyoqwhUSEBOTLIBL4879-50-03 09:17:00 Test Item Value Reference Range Interpretation Comments Basophils (test code = 0.2 See_Comment [Aut omated message] The Basophils) system which ge nerated this result tra nsmitted reference range : <=1.0. The reference r jillian was not used to int erpret this result as normal/abnormal . [facility] HospitalCwrtzqfMLUMWOKDSK5509-24-62 09:17:00 Test Item Value Reference Range Interpretation Comments Segs-Bands # (test code = Segs-Bands #) 4.7 1.5-8.1 [facility] HospitalSsbchkzMDQPZYNOFK6676-91-18 09:17:00 Test Item Value Reference Range Interpretation Comments RBC Morph (test code = Normal (11/23/2013 RBC Morph) 03:17:00 [facility] HospitalQfhlvwjLHGKSNYXVE3226-09-71 09:17:00 Test Item Value Reference Range Interpretation Comments Eosinophils (test code = 0.7 See_Comment [A utomated message] The Eosinophils) system which ge nerated this result tra nsmitted reference range : <=4.0. The reference r jillian was not used to int erpret this result as normal/abnormal . [facility] HospitalWfdwjxrTCNQKQIAOC8458-73-62 09:17:00 Test Item Value Reference Range Interpretation Comments Monocytes (test code = Monocytes) 6.8 2.0-12.0 [facility] HospitalTgdpjwnOQAYLIZMWN5559-96-45 09:17:00 Test Item Value Reference Range Interpretation Comments PROTIME (test code = PROTIME) 13.4 s 12.0-14.7 [facility] HospitalMoprfduCOCRXVGZVN6655-24-45 09:17:00 Test Item Value Reference Range Interpretation Comments INR (test code = INR) 1.03 0.85-1.17 [facility] HospitalIurfkkwRQRYETZEDY9687-39-71 09:17:00 Test Item Value Reference Range Interpretation Comments MPV (test code = MPV) 9.9 7.4-10.4 [facility] HospitalXtexffzIYKZYGUADZ1390-06-98 09:17:00 Test Item Value Reference Range Interpretation Comments Platelet (test code = Platelet) 221 133-450 [facility] HospitalTptbxczLDUVUSOWOB2160-52-04 09:17:00 Test Item Value Reference Range Interpretation Comments MCHC (test code = MCHC) 32.7 32.0-36.0 [facility] HospitalGduftmcTASVTLCMER5267-59-80 09:17:00 Test Item Value Reference Range Interpretation Comments MCH (test code = MCH) 30.0 pg 27.0-31.0 [facility] HospitalDfgyuwnSECLFZRRBR1929-30-76 09:17:00 Test Item Value Reference Range Interpretation Comments RDW (test code = RDW) 14.7 11.5-14.5 [facility] HospitalOfvucgnBTZCSEJLTD4460-10-46 09:17:00 Test Item Value Reference Range Interpretation Comments WBC X 10x3 (test code = WBC X 10x3) 6.1 3.7-10.4 [facility] HospitalOyvmbkdBFKZRTHCZX6346-62-15 09:17:00 Test Item Value Reference Range Interpretation Comments RBC X 10x6 (test code = RBC X 10x6) 4.88 4.70-6.10 [facility] HospitalSxhtoxtNOWCXJBQSD4703-95-85 09:17:00 Test Item Value Reference Range Interpretation Comments Hgb (test code = Hgb) 14.6 14.0-18.0 [facility] HospitalLncxqtzCGNLYHYNEY4367-17-20 09:17:00 Test Item Value Reference Range Interpretation Comments MCV (test code = MCV) 91.6 80.0-94.0 [facility] HospitalCdjhgxdIGYHNVJANG8769-98-18 09:17:00 Test Item Value Reference Range Interpretation Comments Hct (test code = Hct) 44.6 42.0-54.0 [facility]2014-02-25 09:17:00 Test Item Value Reference Range Interpretation Comments Magnesium Lvl (test code = Magnesium 2.0 1.8-2.4 Lvl) [facility]2014-02-25 09:17:00 Test Item Value Reference Range Interpretation Comments Phosphorus (test code = Phosphorus) 2.5 2.5-4.5 [facility]2014-02-25 09:17:00 Test Item Value Reference Range Interpretation Comments Total Protein (test code = Total 7.3 6.4-8.4 Protein) [facility]2014-02-25 09:17:00 Test Item Value Reference Range Interpretation Comments Albumin Lvl (test code = Albumin Lvl) 2.7 3.5-5.0 [facility]2014-02-25 09:17:00 Test Item Value Reference Range Interpretation Comments ASPARTATE TRANSAMINASE 21 See_Comment [Aut omated message] (test code = ASPARTATE The s ystem which TRANSAMINASE) generated this result transmitted ref erence range: <=37. Th e reference range was not used to interpr et this result as normal/abnormal . [facility]2014-02-25 09:17:00 Test Item Value Reference Range Interpretation Comments Bili Total (test code = Bili Total) 0.6 0.2-1.3 [facility]2014-02-25 09:17:00 Test Item Value Reference Range Interpretation Comments Magnesium Lvl (test code = Magnesium 2.0 1.8-2.4 Lvl) [place] [id number] 09:17:00 Test Item Value Reference Range Interpretation Comments Phosphorus (test code = Phosphorus) 2.5 2.5-4.5 [facility]2014-02-25 09:17:00 Test Item Value Reference Range Interpretation Comments Total Protein (test code = Total 7.3 6.4-8.4 Protein) [facility]2014-02-25 09:17:00 Test Item Value Reference Range Interpretation Comments Albumin Lvl (test code = Albumin Lvl) 2.7 3.5-5.0 [place] [id number] 09:17:00 Test Item Value Reference Range Interpretation Comments ASPARTATE TRANSAMINASE 21 See_Comment [Aut omated message] (test code = ASPARTATE The s ystem which TRANSAMINASE) generated this result transmitted ref erence range: <=37. Th e reference range was not used to interpr et this result as normal/abnormal . [facility]2014-02-25 09:17:00 Test Item Value Reference Range Interpretation Comments Bili Total (test code = Bili Total) 0.6 0.2-1.3 [facility]2014-02-25 09:17:00 Test Item Value Reference Range Interpretation Comments Alk Phos (test code = Alk Phos) 108 39-136 [facility]2014-02-25 09:17:00 Test Item Value Reference Range Interpretation Comments ALANINE AMINOTRANSFERASE 20 See_Comment [A utomated message] (test code = ALANINE The sys tem which AMINOTRANSFERASE) generated this result transmitted ref erence range: <=65. Th e reference range was not used to int erpret this result as normal/abnormal . [facility]2014-02-25 09:17:00 Test Item Value Reference Range Interpretation Comments A/G Ratio (test code = A/G Ratio) 0.6 0.7-1.6 [facility]2014-02-25 09:17:00 Test Item Value Reference Range Interpretation Comments Globulin (test code = Globulin) 4.6 2.0-4.0 [facility]2014-02-25 09:17:00 Test Item Value Reference Range Interpretation Comments B/C Ratio (test code = B/C Ratio) 11 03-23 [facility] HospitalIsehmcpTUTZVTPCET4106-60-83 09:17:00 Test Item Value Reference Range Interpretation Comments Basophils # (test code 0.0 See_Comment [Aut omated message] The = Basophils #) system which generated this result tra nsmitted reference range : <=0.2. The reference r jillian was not used to int erpret this result as normal/abnormal . [facility] HospitalDlifectVYIRZMXGWD4715-43-19 09:17:00 Test Item Value Reference Range Interpretation Comments Eosinophils # (test code 0.0 See_Comment [A utomated message] The = Eosinophils #) system whic h generated this result tra nsmitted reference range : <=0.5. The reference r jillian was not used to int erpret this result as normal/abnormal . [facility] HospitalGkgpupbRXHDYYUBCM5469-00-40 09:17:00 Test Item Value Reference Range Interpretation Comments Monocytes # (test code 0.4 See_Comment [Aut omated message] The = Monocytes #) system which generated this result tra nsmitted reference range : <=0.8. The reference r jillian was not used to int erpret this result as normal/abnormal . [facility] HospitalRscynvsGVHQUSLULD8774-72-35 09:17:00 Test Item Value Reference Range Interpretation Comments Lymphocytes (test code = Lymphocytes) 15.7 20.0-40.0 [facility] HospitalJfnvfwaVPKFSYBOPS8043-70-31 09:17:00 Test Item Value Reference Range Interpretation Comments Plt Morph (test code = Normal (11/23/2013 Plt Morph) 03:17:00 [facility] HospitalKyulcukTGIZAUPRZA4442-28-90 09:17:00 Test Item Value Reference Range Interpretation Comments Segs (test code = Segs) 76.6 45.0-75.0 [facility] HospitalVjlfeglGOQUOQZPTF8640-95-02 09:17:00 Test Item Value Reference Range Interpretation Comments Lymphocytes # (test code = Lymphocytes 1.0 1.0-5.5 #) [facility] HospitalSfbgzkkINEIFPOKYH7272-45-67 09:17:00 Test Item Value Reference Range Interpretation Comments Basophils (test code = 0.2 See_Comment [Aut omated message] The Basophils) system which ge nerated this result tra nsmitted reference range : <=1.0. The reference r jillian was not used to int erpret this result as normal/abnormal . [facility] HospitalMchiheaJTPVGGCYGI8479-03-33 09:17:00 Test Item Value Reference Range Interpretation Comments Segs-Bands # (test code = Segs-Bands #) 4.7 1.5-8.1 [facility] HospitalZfbngjuPCOFYZSVFB4387-30-48 09:17:00 Test Item Value Reference Range Interpretation Comments RBC Morph (test code = Normal (11/23/2013 RBC Morph) 03:17:00 [facility] HospitalWkdefozBMXKOAFKEJ5429-06-58 09:17:00 Test Item Value Reference Range Interpretation Comments Eosinophils (test code = 0.7 See_Comment [A utomated message] The Eosinophils) system which ge nerated this result tra nsmitted reference range : <=4.0. The reference r jillian was not used to int erpret this result as normal/abnormal . [facility] HospitalUysyfmmZHSGKYGCPH6595-79-95 09:17:00 Test Item Value Reference Range Interpretation Comments Monocytes (test code = Monocytes) 6.8 2.0-12.0 [facility] HospitalYhjgiimGNWEQAEXDS8776-30-05 09:17:00 Test Item Value Reference Range Interpretation Comments PROTIME (test code = PROTIME) 13.4 s 12.0-14.7 [facility] HospitalJwqvveaGCRBOERDOI3203-02-55 09:17:00 Test Item Value Reference Range Interpretation Comments INR (test code = INR) 1.03 0.85-1.17 [facility] HospitalThqgulfURLYAVNSMX1815-53-87 09:17:00 Test Item Value Reference Range Interpretation Comments MPV (test code = MPV) 9.9 7.4-10.4 [facility] 09:17:00 Test Item Value Reference Range Interpretation Comments Platelet (test code = Platelet) 221 133-450 [facility] HospitalXtoqgstPOWNXVQNGA4562-76-68 09:17:00 Test Item Value Reference Range Interpretation Comments MCHC (test code = MCHC) 32.7 32.0-36.0 [facility]CnfwsbpVXEWFARCDP3786-79-11 09:17:00 Test Item Value Reference Range Interpretation Comments MCH (test code = MCH) 30.0 pg 27.0-31.0 [facility]cbrnxDNCXLYOZLV1263-40-23 09:17:00 Test Item Value Reference Range Interpretation Comments RDW (test code = RDW) 14.7 11.5-14.5 [facility] HospitalWwdosbkVETLZNDSRX8130-91-40 09:17:00 Test Item Value Reference Range Interpretation Comments WBC X 10x3 (test code = WBC X 10x3) 6.1 3.7-10.4 [facility] HospitalVjxbujqAVEVGVTTRB7164-78-08 09:17:00 Test Item Value Reference Range Interpretation Comments RBC X 10x6 (test code = RBC X 10x6) 4.88 4.70-6.10 [facility] HospitalXhvlihlMMMUDJTGAG9539-98-41 09:17:00 Test Item Value Reference Range Interpretation Comments Hgb (test code = Hgb) 14.6 14.0-18.0 [facility] HospitalMulyoqrWHVNRKUTPQ6503-73-88 09:17:00 Test Item Value Reference Range Interpretation Comments MCV (test code = MCV) 91.6 80.0-94.0 [facility] HospitalXqsozyzJDSFXYCZBM6331-70-99 09:17:00 Test Item Value Reference Range Interpretation Comments Hct (test code = Hct) 44.6 42.0-54.0 [facility] [id number] 04:30:00 Test Item Value Reference Range Interpretation Comments Total CK (test code = Total CK) 155 12-191 [facility] [id number] 04:30:00 Test Item Value Reference Range Interpretation Comments CK MB (test code = CK MB) 0.9 0.5-3.6 [facility] [id number] 04:30:00 Test Item Value Reference Range Interpretation Comments Troponin-I (test code no gt See_Comment [Auto mated message] The = Troponin-I) system which g enerated this result transmit cruz reference range : <=0.40. The reference r jillian was not used to interpr et this result as gee l/abnormal. [facility] [employer] [id number] 04:30:00 Test Item Value Reference Range Interpretation Comments Total CK (test code = Total CK) 155 12-191 [facility] [employer] [id number] 04:30:00 Test Item Value Reference Range Interpretation Comments CK MB (test code = CK MB) 0.9 0.5-3.6 [facility] [employer] [id number] 04:30:00 Test Item Value Reference Range Interpretation Comments Troponin-I (test code no gt See_Comment [Auto mated message] The = Troponin-I) system which g enerated this result transmit cruz reference range : <=0.40. The reference r jillian was not used to interpr et this result as gee l/abnormal. [facility] [employer] [id number] 04:30:00 Test Item Value Reference Range Interpretation Comments Total CK (test code = Total CK) 155 12-191 [facility] [employer] [id number] 04:30:00 Test Item Value Reference Range Interpretation Comments CK MB (test code = CK MB) 0.9 0.5-3.6 [facility] [employer] [id number] 04:30:00 Test Item Value Reference Range Interpretation Comments Troponin-I (test code no gt See_Comment [Auto mated message] The = Troponin-I) system which g enerated this result transmit cruz reference range : <=0.40. The reference r jillian was not used to interpr et this result as gee l/abnormal. [facility] [employer] [id number] 22:30:00 Test Item Value Reference Range Interpretation Comments Total CK (test code = Total CK) 142 12-191 [facility] [employer] [id number] 22:30:00 Test Item Value Reference Range Interpretation Comments CK MB (test code = CK MB) 0.8 0.5-3.6 [facility] [employer] [id number] 22:30:00 Test Item Value Reference Range Interpretation Comments Troponin-I (test code no gt See_Comment [Auto mated message] The = Troponin-I) system which g enerated this result transmit cruz reference range : <=0.40. The reference r jillian was not used to interpr et this result as gee l/abnormal. [facility] [employer] [id number] 22:30:00 Test Item Value Reference Range Interpretation Comments Total CK (test code = Total CK) 142 12-191 [facility] [employer] [id number] 22:30:00 Test Item Value Reference Range Interpretation Comments CK MB (test code = CK MB) 0.8 0.5-3.6 [facility] [id number] 22:30:00 Test Item Value Reference Range Interpretation Comments Troponin-I (test code no gt See_Comment [Auto mated message] The = Troponin-I) system which g enerated this result transmit cruz reference range : <=0.40. The reference r jillian was not used to interpr et this result as gee l/abnormal. [facility] [employer] [id number] 22:30:00 Test Item Value Reference Range Interpretation Comments Total CK (test code = Total CK) 142 12-191 [facility] [employer] [id number] 22:30:00 Test Item Value Reference Range Interpretation Comments CK MB (test code = CK MB) 0.8 0.5-3.6 [facility] [employer] [id number] 22:30:00 Test Item Value Reference Range Interpretation Comments Troponin-I (test code no gt See_Comment [Auto mated message] The = Troponin-I) system which g enerated this result transmit cruz reference range : <=0.40. The reference r jillian was not used to interpr et this result as gee l/abnormal. [facility] [employer] [id number] 22:00:00 Test Item Value Reference Range Interpretation Comments U Amph Scr (test code Negative *NA*(11/22/2013 = U Amph Scr) 16:00:00 [facility] [employer] [id number] 22:00:00 Test Item Value Reference Range Interpretation Comments U Cocaine Scr (test Positive code = U Cocaine Scr) *ABN*(11/22/2013 16:00:00 [facility] [id number] 22:00:00 Test Item Value Reference Range Interpretation Comments U Opiate Scr (test Negative code = U Opiate Scr) *NA*(11/22/2013 16:00:00 [facility] [id number] 22:00:00 Test Item Value Reference Range Interpretation Comments U Cannab Scr (test Negative code = U Cannab Scr) *NA*(11/22/2013 16:00:00 [facility] [id number] 22:00:00 Test Item Value Reference Range Interpretation Comments U Benzodia Scr (test Negative code = U Benzodia Scr) *NA*(11/22/2013 16:00:00 [facility] [id number] 22:00:00 Test Item Value Reference Range Interpretation Comments U Romy Scr (test code Negative *NA*(11/22/2013 = U Romy Scr) 16:00:00 [facility] [id number] 22:00:00 Test Item Value Reference Range Interpretation Comments UDS Note (test code = See Note 8(11/22/2013 UDS Note) 16:00:00 [facility] [id number] 22:00:00 Test Item Value Reference Range Interpretation Comments U Phencyc Scr (test Negative code = U Phencyc Scr) *NA*(11/22/2013 16:00:00 [facility] [id number] 22:00:00 Test Item Value Reference Range Interpretation Comments UA Urobilinogen (test code = UA <=1.0 mg/dL 0.1-1.0 Urobilinogen) [facility] [id number] 22:00:00 Test Item Value Reference Range Interpretation Comments UA Sq Epi (test code = UA Sq Epi) None Seen [facility] [id number] 22:00:00 Test Item Value Reference Range Interpretation Comments UA Bili (test code = Negative *NA*(11/22/2013 UA Bili) 16:00:00 [facility] [id number] 22:00:00 Test Item Value Reference Range Interpretation Comments UA Blood (test code = Small *ABN*(11/22/2013 UA Blood) 16:00:00 [facility] AND [id number] 22:00:00 Test Item Value Reference Range Interpretation Comments UA Nitrite (test code Negative (11/22/2013 = UA Nitrite) 16:00:00 [facility] AND [id number] 22:00:00 Test Item Value Reference Range Interpretation Comments UA WBC (test code = 1 See_Comment [Automa cruz message] The UA WBC) system which ge nerated this result transmit cruz reference range : <=5. The reference range was not used to interpr et this result as gee l/abnormal. [facility] AND [id number] 22:00:00 Test Item Value Reference Range Interpretation Comments UA Leuk Est (test Negative (11/22/2013 code = UA Leuk Est) 16:00:00 [facility] AND [id number] 22:00:00 Test Item Value Reference Range Interpretation Comments UA RBC (test code = 1 See_Comment [Automa cruz message] The UA RBC) system which ge nerated this result transmit cruz reference range : <=2. The reference range was not used to interpr et this result as gee l/abnormal. [facility] AND [id number] 22:00:00 Test Item Value Reference Range Interpretation Comments UA Mucus (test code = UA Mucus) Few /LPF [facility] AND [id number] 22:00:00 Test Item Value Reference Range Interpretation Comments UA Bacteria (test code = UA Occasional /HPF Bacteria) [facility] AND [id number] 22:00:00 Test Item Value Reference Range Interpretation Comments UA Turbidity (test code = Clear (11/22/2013 UA Turbidity) 16:00:00 [facility] AND [id number] 22:00:00 Test Item Value Reference Range Interpretation Comments UA Color (test code = Light Yellow UA Color) *NA*(11/22/2013 16:00:00 [facility] AND [id number] 22:00:00 Test Item Value Reference Range Interpretation Comments UA Spec Grav (test code = UA Spec Grav) 1.009 [facility] AND [id number] 22:00:00 Test Item Value Reference Range Interpretation Comments UA Glucose (test code = UA Glucose) 70 mg/dL [facility] AND [id number] 22:00:00 Test Item Value Reference Range Interpretation Comments UA Protein (test code = UA >=300 mg/dL Protein) [facility] AND [id number] 22:00:00 Test Item Value Reference Range Interpretation Comments UA pH (test code = UA pH) 6.0 5.0-8.0 [facility] AND [id number] 22:00:00 Test Item Value Reference Range Interpretation Comments UA Ketones (test code = UA Negative mg/dL Ketones) [facility] [id number] 22:00:00 Test Item Value Reference Range Interpretation Comments U Amph Scr (test code Negative *NA*(11/22/2013 = U Amph Scr) 16:00:00 [facility] [id number] 22:00:00 Test Item Value Reference Range Interpretation Comments U Cocaine Scr (test Positive code = U Cocaine Scr) *ABN*(11/22/2013 16:00:00 [facility] [id number] 22:00:00 Test Item Value Reference Range Interpretation Comments U Opiate Scr (test Negative code = U Opiate Scr) *NA*(11/22/2013 16:00:00 [facility] [id number] 22:00:00 Test Item Value Reference Range Interpretation Comments U Cannab Scr (test Negative code = U Cannab Scr) *NA*(11/22/2013 16:00:00 [facility] [id number] 22:00:00 Test Item Value Reference Range Interpretation Comments U Benzodia Scr (test Negative code = U Benzodia Scr) *NA*(11/22/2013 16:00:00 [facility] [id number] 22:00:00 Test Item Value Reference Range Interpretation Comments U Romy Scr (test code Negative *NA*(11/22/2013 = U Romy Scr) 16:00:00 [facility] [id number] 22:00:00 Test Item Value Reference Range Interpretation Comments UDS Note (test code = See Note 8(11/22/2013 UDS Note) 16:00:00 [facility] [id number] 22:00:00 Test Item Value Reference Range Interpretation Comments U Phencyc Scr (test Negative code = U Phencyc Scr) *NA*(11/22/2013 16:00:00 [facility] [id number] 22:00:00 Test Item Value Reference Range Interpretation Comments UA Urobilinogen (test code = UA <=1.0 mg/dL 0.1-1.0 Urobilinogen) [facility] [id number] 22:00:00 Test Item Value Reference Range Interpretation Comments UA Sq Epi (test code = UA Sq Epi) None [facility]en [facility] [id number] 22:00:00 Test Item Value Reference Range Interpretation Comments UA Bili (test code = Negative *NA*(11/22/2013 UA Bili) 16:00:00 [facility] [id number] 22:00:00 Test Item Value Reference Range Interpretation Comments UA Blood (test code = Small *ABN*(11/22/2013 UA Blood) 16:00:00 [facility] [id number] 22:00:00 Test Item Value Reference Range Interpretation Comments UA Nitrite (test code Negative (11/22/2013 = UA Nitrite) 16:00:00 [facility] [id number] 22:00:00 Test Item Value Reference Range Interpretation Comments UA WBC (test code = 1 See_Comment [Automa cruz message] The UA WBC) system which ge nerated this result transmit cruz reference range : <=5. The reference range was not used to interpr et this result as gee l/abnormal. [facility] [id number] 22:00:00 Test Item Value Reference Range Interpretation Comments UA Leuk Est (test Negative (11/22/2013 code = UA Leuk Est) 16:00:00 [facility] [id number] 22:00:00 Test Item Value Reference Range Interpretation Comments UA RBC (test code = 1 See_Comment [Automa cruz message] The UA RBC) system which ge nerated this result transmit cruz reference range : <=2. The reference range was not used to interpr et this result as gee l/abnormal. [facility] AND [id number] 22:00:00 Test Item Value Reference Range Interpretation Comments UA Mucus (test code = UA Mucus) Few /LPF [facility] AND [id number] 22:00:00 Test Item Value Reference Range Interpretation Comments UA Bacteria (test code = UA Occasional /HPF Bacteria) [facility] AND [id number] 22:00:00 Test Item Value Reference Range Interpretation Comments UA Turbidity (test code = Clear (11/22/2013 UA Turbidity) 16:00:00 [facility] AND [id number] 22:00:00 Test Item Value Reference Range Interpretation Comments UA Color (test code = Light Yellow UA Color) *NA*(11/22/2013 16:00:00 [facility] AND [id number] 22:00:00 Test Item Value Reference Range Interpretation Comments UA Spec Grav (test code = UA Spec Grav) 1.009 [facility] AND [id number] 22:00:00 Test Item Value Reference Range Interpretation Comments UA Glucose (test code = UA Glucose) 70 mg/dL [facility] AND [id number] 22:00:00 Test Item Value Reference Range Interpretation Comments UA Protein (test code = UA >=300 mg/dL Protein) [facility] AND [id number] 22:00:00 Test Item Value Reference Range Interpretation Comments UA pH (test code = UA pH) 6.0 5.0-8.0 [facility] AND [id number] 22:00:00 Test Item Value Reference Range Interpretation Comments UA Ketones (test code = UA Negative mg/dL Ketones) [facility] [id number] 22:00:00 Test Item Value Reference Range Interpretation Comments U Amph Scr (test code Negative *NA*(11/22/2013 = U Amph Scr) 16:00:00 [facility] [id number] 22:00:00 Test Item Value Reference Range Interpretation Comments U Cocaine Scr (test Positive code = U Cocaine Scr) *ABN*(11/22/2013 16:00:00 [facility] [id number] 22:00:00 Test Item Value Reference Range Interpretation Comments U Opiate Scr (test Negative code = U Opiate Scr) *NA*(11/22/2013 16:00:00 [facility] [id number] 22:00:00 Test Item Value Reference Range Interpretation Comments U Cannab Scr (test Negative code = U Cannab Scr) *NA*(11/22/2013 16:00:00 [facility] [id number] 22:00:00 Test Item Value Reference Range Interpretation Comments U Benzodia Scr (test Negative code = U Benzodia Scr) *NA*(11/22/2013 16:00:00 [facility] [id number] 22:00:00 Test Item Value Reference Range Interpretation Comments U Romy Scr (test code Negative *NA*(11/22/2013 = U Romy Scr) 16:00:00 [facility] [id number] 22:00:00 Test Item Value Reference Range Interpretation Comments UDS Note (test code = See Note 8(11/22/2013 UDS Note) 16:00:00 [facility] [id number] 22:00:00 Test Item Value Reference Range Interpretation Comments U Phencyc Scr (test Negative code = U Phencyc Scr) *NA*(11/22/2013 16:00:00 [facility] [id number] 22:00:00 Test Item Value Reference Range Interpretation Comments UA Urobilinogen (test code = UA <=1.0 mg/dL 0.1-1.0 Urobilinogen) [facility] [id number] 22:00:00 Test Item Value Reference Range Interpretation Comments UA Sq Epi (test code = UA Sq Epi) None [facility]en [facility] [id number] 22:00:00 Test Item Value Reference Range Interpretation Comments UA Bili (test code = Negative *NA*(11/22/2013 UA Bili) 16:00:00 [facility] [id number] 22:00:00 Test Item Value Reference Range Interpretation Comments UA Blood (test code = Small *ABN*(11/22/2013 UA Blood) 16:00:00 [facility] AND [id number] 22:00:00 Test Item Value Reference Range Interpretation Comments UA Nitrite (test code Negative (11/22/2013 = UA Nitrite) 16:00:00 [facility] AND [id number] 22:00:00 Test Item Value Reference Range Interpretation Comments UA WBC (test code = 1 See_Comment [Automa cruz message] The UA WBC) system which ge nerated this result transmit cruz reference range : <=5. The reference range was not used to interpr et this result as gee l/abnormal. [facility] AND [id number] 22:00:00 Test Item Value Reference Range Interpretation Comments UA Leuk Est (test Negative (11/22/2013 code = UA Leuk Est) 16:00:00 [facility]) [facility] AND [id number] 22:00:00 Test Item Value Reference Range Interpretation Comments UA RBC (test code = 1 See_Comment [Automa cruz message] The UA RBC) system which ge nerated this result transmit cruz reference range : <=2. The reference range was not used to interpr et this result as gee l/abnormal. [facility] AND [id number] 22:00:00 Test Item Value Reference Range Interpretation Comments UA Mucus (test code = UA Mucus) Few /LPF [facility] AND [id number] 22:00:00 Test Item Value Reference Range Interpretation Comments UA Bacteria (test code = UA Occasional /HPF Bacteria) [facility] AND [id number] 22:00:00 Test Item Value Reference Range Interpretation Comments UA Turbidity (test code = Clear (11/22/2013 UA Turbidity) 16:00:00 [facility]) [facility] AND [id number] 22:00:00 Test Item Value Reference Range Interpretation Comments UA Color (test code = Light Yellow UA Color) *NA*(11/22/2013 16:00:00 [facility]) [facility] AND [id number] 22:00:00 Test Item Value Reference Range Interpretation Comments UA Spec Grav (test code = UA Spec Grav) 1.009 [facility] AND [id number] 22:00:00 Test Item Value Reference Range Interpretation Comments UA Glucose (test code = UA Glucose) 70 mg/dL [facility] AND [id number] 22:00:00 Test Item Value Reference Range Interpretation Comments UA Protein (test code = UA >=300 mg/dL Protein) [facility] AND [id number] 22:00:00 Test Item Value Reference Range Interpretation Comments UA pH (test code = UA pH) 6.0 5.0-8.0 [facility] AND [id number] 22:00:00 Test Item Value Reference Range Interpretation Comments UA Ketones (test code = UA Negative mg/dL Ketones) [facility] [id number] 18:46:00 Test Item Value Reference Range Interpretation Comments Total CK (test code = Total CK) 85 12-191 [facility] [id number] 18:46:00 Test Item Value Reference Range Interpretation Comments CK MB (test code = CK MB) no gt 0.5-3.6 [facility] [id number] 18:46:00 Test Item Value Reference Range Interpretation Comments Troponin-I (test code no gt See_Comment [Auto mated message] The = Troponin-I) system which g enerated this result transmit cruz reference range : <=0.40. The reference r jillian was not used to interpr et this result as gee l/abnormal. [facility] [id number] 18:46:00 Test Item Value Reference Range Interpretation Comments CK-MB INDEX (test no gt See_Comment [Automate d message] The code = CK-MB INDEX) system w [facility] generated this result transmit cruz reference range : <=2.5. The reference range was not used to interpr et this result as gee l/abnormal. [id number] 18:46:00 Test Item Value Reference Range Interpretation Comments PROTIME (test code = PROTIME) 12.9 s 12.0-14.7 [id number] 18:46:00 Test Item Value Reference Range Interpretation Comments INR (test code = INR) 0.98 0.85-1.17 [id number] 18:46:00 Test Item Value Reference Range Interpretation Comments aPTT (test code = aPTT) 28.6 s 22.9-35.8 [facility] H[id number] 18:46:00 Test Item Value Reference Range Interpretation Comments Eosinophils # (test code 0.1 See_Comment [A utomated message] The = Eosinophils #) system wh h generated this result tra nsmitted reference range : <=0.5. The reference r jillian was not used to int erpret this result as normal/abnormal . [facility] H[id number] 18:46:00 Test Item Value Reference Range Interpretation Comments Monocytes # (test code 0.7 See_Comment [Aut omated message] The = Monocytes #) system which generated this result tra nsmitted reference range : <=0.8. The reference r jillian was not used to int erpret this result as normal/abnormal . [facility] H[id number] 18:46:00 Test Item Value Reference Range Interpretation Comments Eosinophils (test code = 1.3 See_Comment [A utomated message] The Eosinophils) system which ge nerated this result tra nsmitted reference range : <=4.0. The reference r jillian was not used to int erpret this result as normal/abnormal . [facility] H[id number] 18:46:00 Test Item Value Reference Range Interpretation Comments Monocytes (test code = Monocytes) 7.6 2.0-12.0 [facility] H[id number] 18:46:00 Test Item Value Reference Range Interpretation Comments Lymphocytes (test code = Lymphocytes) 25.0 20.0-40.0 [facility] H[id number] 18:46:00 Test Item Value Reference Range Interpretation Comments Basophils (test code = 0.4 See_Comment [Aut omated message] The Basophils) system which ge nerated this result tra nsmitted reference range : <=1.0. The reference r jillian was not used to int erpret this result as normal/abnormal . [facility] HospitalAjqqoxtBYKCPLFBXR2902-61-57 18:46:00 Test Item Value Reference Range Interpretation Comments Lymphocytes # (test code = Lymphocytes 2.3 1.0-5.5 #) [facility] [id number] 18:46:00 Test Item Value Reference Range Interpretation Comments Segs-Bands # (test code = Segs-Bands #) 6.2 1.5-8.1 [facility] Hos[id number] 18:46:00 Test Item Value Reference Range Interpretation Comments Segs (test code = Segs) 65.7 45.0-75.0 [facility] [id number] 18:46:00 Test Item Value Reference Range Interpretation Comments Total CK (test code = Total CK) 85 12-191 [facility] [id number] 18:46:00 Test Item Value Reference Range Interpretation Comments CK MB (test code = CK MB) no gt 0.5-3.6 [facility] [id number] 18:46:00 Test Item Value Reference Range Interpretation Comments Troponin-I (test code no gt See_Comment [Auto mated message] The = Troponin-I) system which g enerated this result transmit cruz reference range : <=0.40. The reference r jillian was not used to interpr et this result as gee l/abnormal. [facility] [id number] 18:46:00 Test Item Value Reference Range Interpretation Comments CK-MB INDEX (test no gt See_Comment [Automate d message] The code = CK-MB INDEX) system w [facility] generated this result transmit cruz reference range : <=2.5. The reference range was not used to interpr et this result as gee l/abnormal. [facility] H[id number] 18:46:00 Test Item Value Reference Range Interpretation Comments PROTIME (test code = PROTIME) 12.9 s 12.0-14.7 [facility] Hospit[id number] 18:46:00 Test Item Value Reference Range Interpretation Comments INR (test code = INR) 0.98 0.85-1.17 [facility] Hospit[id number] 18:46:00 Test Item Value Reference Range Interpretation Comments aPTT (test code = aPTT) 28.6 s 22.9-35.8 [facility] HospitalMapuuoyAYNHJRIRIP1173-52-29 18:46:00 Test Item Value Reference Range Interpretation Comments Eosinophils # (test code 0.1 See_Comment [A utomated message] The = Eosinophils #) system [facility] generated this result tra nsmitted reference range : <=0.5. The reference r jillian was not used to int erpret this result as normal/abnormal . [facility] H[id number] 18:46:00 Test Item Value Reference Range Interpretation Comments Monocytes # (test code 0.7 See_Comment [Aut omated message] The = Monocytes #) system which generated this result tra nsmitted reference range : <=0.8. The reference r jillian was not used to int erpret this result as normal/abnormal . [facility] H[id number] 18:46:00 Test Item Value Reference Range Interpretation Comments Eosinophils (test code = 1.3 See_Comment [A utomated message] The Eosinophils) system which ge nerated this result tra nsmitted reference range : <=4.0. The reference r jillian was not used to int erpret this result as normal/abnormal . [facility] HospitalPqbeaifCNJASOLHYB2431-48-74 18:46:00 Test Item Value Reference Range Interpretation Comments Monocytes (test code = Monocytes) 7.6 2.0-12.0 [facility] Hospit[id number] 18:46:00 Test Item Value Reference Range Interpretation Comments Lymphocytes (test code = Lymphocytes) 25.0 20.0-40.0 [facility] HospitalIyttmfbXATMYPFXGG3806-52-65 18:46:00 Test Item Value Reference Range Interpretation Comments Basophils (test code = 0.4 See_Comment [Aut omated message] The Basophils) system which ge nerated this result tra nsmitted reference range : <=1.0. The reference r jillian was not used to int erpret this result as normal/abnormal . [facility] HospitalEdryvdcRQNINMXZBK0436-57-52 18:46:00 Test Item Value Reference Range Interpretation Comments Lymphocytes # (test code = Lymphocytes 2.3 1.0-5.5 #) [facility] HospitalAihqarjISIIMQIECG6174-77-67 18:46:00 Test Item Value Reference Range Interpretation Comments Segs-Bands # (test code = Segs-Bands #) 6.2 1.5-8.1 [facility] HospitalKtpfoasMLSFDCPDHL7505-99-93 18:46:00 Test Item Value Reference Range Interpretation Comments Segs (test code = Segs) 65.7 45.0-75.0 [facility] [id number] 18:46:00 Test Item Value Reference Range Interpretation Comments Total CK (test code = Total CK) 85 12-191 [facility] [id number] 18:46:00 Test Item Value Reference Range Interpretation Comments CK MB (test code = CK MB) no gt 0.5-3.6 [facility] [id number] 18:46:00 Test Item Value Reference Range Interpretation Comments Troponin-I (test code no gt See_Comment [Auto mated message] The = Troponin-I) system which g enerated this result transmit cruz reference range : <=0.40. The reference r jillian was not used to interpr et this result as gee l/abnormal. [facility] [id number] 18:46:00 Test Item Value Reference Range Interpretation Comments CK-MB INDEX (test no gt See_Comment [Automate d message] The code = CK-MB INDEX) system w [facility] generated this result transmit cruz reference range : <=2.5. The reference range was not used to interpr et this result as gee l/abnormal. [facility]ptthveWDDGUCGBLT9665-91-[facility] 18:46:00 Test Item Value Reference Range Interpretation Comments PROTIME (test code = PROTIME) 12.9 s 12.0-14.7 [facility] HospitalOzovjzdBDTGWANSSD8660-30-45 18:46:00 Test Item Value Reference Range Interpretation Comments INR (test code = INR) 0.98 0.85-1.17 [facility] Hospit[id number] 18:46:00 Test Item Value Reference Range Interpretation Comments aPTT (test code = aPTT) 28.6 s 22.9-35.8 [facility]JfmsejdAXKBAYTMTZ4793-49-63 18:46:00 Test Item Value Reference Range Interpretation Comments Eosinophils # (test code 0.1 See_Comment [A utomated message] The = Eosinophils #) system whic h generated this result tra nsmitted reference range : <=0.5. The reference r jillian was not used to int erpret this result as normal/abnormal . [facility]WrwrthcOVEJXZEJXF3088-26-77 18:46:00 Test Item Value Reference Range Interpretation Comments Monocytes # (test code 0.7 See_Comment [Aut omated message] The = Monocytes #) system which generated this result tra nsmitted reference range : <=0.8. The reference r jillian was not used to int erpret this result as normal/abnormal . [facility] HospitalKfyxcjjTTFLSNLAPA5891-27-56 18:46:00 Test Item Value Reference Range Interpretation Comments Eosinophils (test code = 1.3 See_Comment [A utomated message] The Eosinophils) system which ge nerated this result tra nsmitted reference range : <=4.0. The reference r jillian was not used to int erpret this result as normal/abnormal . [facility] HospitalDbjffjsFRGBPSZQTI1230-38-53 18:46:00 Test Item Value Reference Range Interpretation Comments Monocytes (test code = Monocytes) 7.6 2.0-12.0 [facility] HospitalCnsqoegTKBGUPDAIE2825-43-36 18:46:00 Test Item Value Reference Range Interpretation Comments Lymphocytes (test code = Lymphocytes) 25.0 20.0-40.0 [facility] HospitalSxlefzjCYNJMWFCQE4410-86-47 18:46:00 Test Item Value Reference Range Interpretation Comments Basophils (test code = 0.4 See_Comment [Aut omated message] The Basophils) system which ge nerated this result tra nsmitted reference range : <=1.0. The reference r jillian was not used to int erpret this result as normal/abnormal . [facility] HospitalWucbikwHZMTDZTOMP0680-96-12 18:46:00 Test Item Value Reference Range Interpretation Comments Lymphocytes # (test code = Lymphocytes 2.3 1.0-5.5 #) [facility] HospitalKbckolcXPYLOHUMBI6294-74-48 18:46:00 Test Item Value Reference Range Interpretation Comments Segs-Bands # (test code = Segs-Bands #) 6.2 1.5-8.1 [facility] HospitalNoprbnsVGRQNZBQFB2886-99-06 18:46:00 Test Item Value Reference Range Interpretation Comments Segs (test code = Segs) 65.7 45.0-75.0 [facility]QqcvkklNARNGHPQF1688-42-42 12:00:00 Test Item Value Reference Range Interpretation Comments Calcium Lvl (test code = Calcium Lvl) 7.7 8.5-10.5 L [facility] HospitalMosvgalYQGCSWTAH7963-03-22 12:00:00 Test Item Value Reference Range Interpretation Comments Potassium Lvl (test code = Potassium 4.0 3.5-5.1 N Lvl) [facility] HospitalVyhfbemOKQYXXTHT9333-12-26 12:00:00 Test Item Value Reference Range Interpretation Comments Sodium Lvl (test code = Sodium Lvl) 140 135-145 N [facility] HospitalLdeaieuZGURGIDUE5114-11-63 12:00:00 Test Item Value Reference Range Interpretation Comments CO2 (test code = CO2) 23 24-32 L [facility] HospitalLyohkmrKTLBFDLIF1652-04-95 12:00:00 Test Item Value Reference Range Interpretation Comments Chloride Lvl (test code = Chloride Lvl) 102 95-109 N [facility] HospitalJbtqjwuTJUXSNRNU1233-18-11 12:00:00 Test Item Value Reference Range Interpretation Comments AGAP (test code = AGAP) 19.0 10.0-20.0 N [facility] HospitalZjfkwkqXIOKMFAKR8747-92-83 12:00:00 Test Item Value Reference Range Interpretation Comments Glucose Lvl (test code = Glucose Lvl) 124 70-99 H [facility] HospitalVpkgxdtTHOOKIYDA1673-10-99 12:00:00 Test Item Value Reference Range Interpretation Comments BUN (test code = BUN) 25 7-22 H [facility] HospitalNaihisvFCLNZDGEY8154-32-05 12:00:00 Test Item Value Reference Range Interpretation Comments Creatinine Lvl (test code = Creatinine 2.2 0.5-1.4 H Lvl) [facility] HospitalUvcbubaMMFGUQMCK3739-44-62 12:00:00 Test Item Value Reference Range Interpretation Comments Calcium Lvl (test code = Calcium Lvl) 7.7 8.5-10.5 L [facility] HospitalLgfewtvPJICXIIIN9348-81-00 12:00:00 Test Item Value Reference Range Interpretation Comments Potassium Lvl (test code = Potassium 4.0 3.5-5.1 N Lvl) [facility] HospitalUywshpdCDYAESQWJ2668-20-00 12:00:00 Test Item Value Reference Range Interpretation Comments Sodium Lvl (test code = Sodium Lvl) 140 135-145 N [facility] HospitalAvpxxtkSXDNCBPTH0229-77-56 12:00:00 Test Item Value Reference Range Interpretation Comments CO2 (test code = CO2) 23 24-32 L [facility] HospitalBnlamwrDROHKSTVC5891-80-96 12:00:00 Test Item Value Reference Range Interpretation Comments Chloride Lvl (test code = Chloride Lvl) 102 95-109 N [facility] HospitalRynvrbmNJYXRNMDB2280-06-71 12:00:00 Test Item Value Reference Range Interpretation Comments AGAP (test code = AGAP) 19.0 10.0-20.0 N [facility] HospitalIqjqmvaGHPNKJXAI7542-82-69 12:00:00 Test Item Value Reference Range Interpretation Comments Glucose Lvl (test code = Glucose Lvl) 124 70-99 H [facility] HospitalIobnpwjSETSDCUXR3108-93-84 12:00:00 Test Item Value Reference Range Interpretation Comments BUN (test code = BUN) 25 7-22 H [facility] HospitalGoypoxoCYSPXSEBN1947-53-77 12:00:00 Test Item Value Reference Range Interpretation Comments Creatinine Lvl (test code = Creatinine 2.2 0.5-1.4 H Lvl) [facility] HospitalQrnfsrpNAFFHMKWP6633-06-61 12:00:00 Test Item Value Reference Range Interpretation Comments Calcium Lvl (test code = Calcium Lvl) 7.7 8.5-10.5 L [facility] HospitalCuzwkeqXASUASKYN6344-84-00 12:00:00 Test Item Value Reference Range Interpretation Comments Potassium Lvl (test code = Potassium 4.0 3.5-5.1 N Lvl) [facility] HospitalKnzughaFRILCVRDH7226-82-31 12:00:00 Test Item Value Reference Range Interpretation Comments Sodium Lvl (test code = Sodium Lvl) 140 135-145 N [facility] HospitalUuaqldySIRHSEVJX9229-54-81 12:00:00 Test Item Value Reference Range Interpretation Comments CO2 (test code = CO2) 23 24-32 L [facility] HospitalPbbclyiMLMSZVUPM9250-70-38 12:00:00 Test Item Value Reference Range Interpretation Comments Chloride Lvl (test code = Chloride Lvl) 102 95-109 N [facility] HospitalRcsjapkYTQSXMUOI8299-74-17 12:00:00 Test Item Value Reference Range Interpretation Comments AGAP (test code = AGAP) 19.0 10.0-20.0 N [facility]TqccvkeNMFLMPAED3805-58-57 12:00:00 Test Item Value Reference Range Interpretation Comments Glucose Lvl (test code = Glucose Lvl) 124 70-99 H [facility] HospitalCysxuagLHKKNHLXC6004-39-79 12:00:00 Test Item Value Reference Range Interpretation Comments BUN (test code = BUN) 25 7-22 H [facility] HospitalEaemhujDNBQTNFAT1369-47-55 12:00:00 Test Item Value Reference Range Interpretation Comments Creatinine Lvl (test code = Creatinine 2.2 0.5-1.4 H Lvl) [facility] HospitalKavcfdyBECLLWXCA2950-54-53 22:17:00 Test Item Value Reference Range Interpretation Comments Calcium Lvl (test code = Calcium Lvl) 7.9 8.5-10.5 L [facility] HospitalIecblaeOPLDWLRDG4379-02-84 22:17:00 Test Item Value Reference Range Interpretation Comments AGAP (test code = AGAP) 18.5 10.0-20.0 N [facility] HospitalLdmpwqhDBBIJHNUY9483-55-52 22:17:00 Test Item Value Reference Range Interpretation Comments CO2 (test code = CO2) 21 24-32 L [facility] HospitalJbzrjeyGRIHZTLND1613-37-02 22:17:00 Test Item Value Reference Range Interpretation Comments Glucose Lvl (test code = Glucose Lvl) 77 70-99 N [facility] HospitalRybdqgdHYBERMMDN1680-09-14 22:17:00 Test Item Value Reference Range Interpretation Comments BUN (test code = BUN) 24 7-22 H [facility] HospitalMzvtikaOSXIHBLQA0157-92-40 22:17:00 Test Item Value Reference Range Interpretation Comments Creatinine Lvl (test code = Creatinine 1.8 0.5-1.4 H Lvl) [facility] HospitalHbltlbwLISILNMLU8807-69-70 22:17:00 Test Item Value Reference Range Interpretation Comments Sodium Lvl (test code = Sodium Lvl) 140 135-145 N [facility] HospitalSevfpbbZEOFGRZSI5550-74-34 22:17:00 Test Item Value Reference Range Interpretation Comments Potassium Lvl (test code = Potassium 4.5 3.5-5.1 N Lvl) [facility] HospitalUmtobagXFVJENYIW6614-93-58 22:17:00 Test Item Value Reference Range Interpretation Comments Chloride Lvl (test code = Chloride Lvl) 105 95-109 N [facility] HospitalSqgdjfaJGAFSIQPF2186-67-76 22:17:00 Test Item Value Reference Range Interpretation Comments Calcium Lvl (test code = Calcium Lvl) 7.9 8.5-10.5 L [facility] HospitalEpcqxdjAKVQKKIGA1777-92-89 22:17:00 Test Item Value Reference Range Interpretation Comments AGAP (test code = AGAP) 18.5 10.0-20.0 N [facility] HospitalPbogrulMXUXSHQKV8112-57-13 22:17:00 Test Item Value Reference Range Interpretation Comments CO2 (test code = CO2) 21 24-32 L [facility] HospitalVinlduwSDQUNJJEV5521-64-00 22:17:00 Test Item Value Reference Range Interpretation Comments Glucose Lvl (test code = Glucose Lvl) 77 70-99 N [facility] HospitalSrqkwhbUOVJGVWDB7083-80-11 22:17:00 Test Item Value Reference Range Interpretation Comments BUN (test code = BUN) 24 7-22 H [facility] HospitalVimkobzJDYCUJXDR8872-85-70 22:17:00 Test Item Value Reference Range Interpretation Comments Creatinine Lvl (test code = Creatinine 1.8 0.5-1.4 H Lvl) [facility] HospitalNxqjryxTWZZSQASR0885-65-16 22:17:00 Test Item Value Reference Range Interpretation Comments Sodium Lvl (test code = Sodium Lvl) 140 135-145 N [facility] HospitalPcenunoHWVCCFRAQ6510-36-33 22:17:00 Test Item Value Reference Range Interpretation Comments Potassium Lvl (test code = Potassium 4.5 3.5-5.1 N Lvl) [facility] HospitalMyyiqciCBKUERZKU1039-21-18 22:17:00 Test Item Value Reference Range Interpretation Comments Chloride Lvl (test code = Chloride Lvl) 105 95-109 N [facility] HospitalEiakorkNKBUVEVFR4885-94-27 22:17:00 Test Item Value Reference Range Interpretation Comments Calcium Lvl (test code = Calcium Lvl) 7.9 8.5-10.5 L [facility] HospitalOvyoujcJTKTWDFLX7646-60-15 22:17:00 Test Item Value Reference Range Interpretation Comments AGAP (test code = AGAP) 18.5 10.0-20.0 N [facility] HospitalZxcjizxMTVQTZIFU8312-49-32 22:17:00 Test Item Value Reference Range Interpretation Comments CO2 (test code = CO2) 21 24-32 L [facility] HospitalWaqocbbKBVJMVXUZ5240-70-35 22:17:00 Test Item Value Reference Range Interpretation Comments Glucose Lvl (test code = Glucose Lvl) 77 70-99 N [facility] HospitalUjrhzvvRDNINWQIL8277-66-30 22:17:00 Test Item Value Reference Range Interpretation Comments BUN (test code = BUN) 24 7-22 H [facility] HospitalHpdoknbLZLBQAOPJ9259-76-48 22:17:00 Test Item Value Reference Range Interpretation Comments Creatinine Lvl (test code = Creatinine 1.8 0.5-1.4 H Lvl) [facility] HospitalZfczrnxZWSWCIGGP5214-64-35 22:17:00 Test Item Value Reference Range Interpretation Comments Sodium Lvl (test code = Sodium Lvl) 140 135-145 N [facility] HospitalYqwovhvWURPHGVYN8897-26-52 22:17:00 Test Item Value Reference Range Interpretation Comments Potassium Lvl (test code = Potassium 4.5 3.5-5.1 N Lvl) [facility] HospitalMavkokiDVGLJKQLK7628-80-68 22:17:00 Test Item Value Reference Range Interpretation Comments Chloride Lvl (test code = Chloride Lvl) 105 95-109 N [facility] HospitalDkclxbiMUOVFGPVU9043-65-37 19:20:00 Test Item Value Reference Range Interpretation Comments Creatinine Lvl (test code = Creatinine 1.8 0.5-1.4 H Lvl) [facility] HospitalZgusmjaAHSYHWUOD6207-54-89 19:20:00 Test Item Value Reference Range Interpretation Comments Potassium Lvl (test code = Potassium 4.0 3.5-5.1 N Lvl) [facility] HospitalGjfemkdNUIYZXLOM9331-24-58 19:20:00 Test Item Value Reference Range Interpretation Comments Sodium Lvl (test code = Sodium Lvl) 137 135-145 N [facility] HospitalQvecgwuPRPGYCYIQ7426-20-84 19:20:00 Test Item Value Reference Range Interpretation Comments BUN (test code = BUN) 25 7-22 H [facility] HospitalKsdouhhRPSDSDZYF7349-20-19 19:20:00 Test Item Value Reference Range Interpretation Comments Calcium Lvl (test code = Calcium Lvl) 8.7 8.5-10.5 N [facility] HospitalHsuahloGASHMLLOT7525-48-54 19:20:00 Test Item Value Reference Range Interpretation Comments CO2 (test code = CO2) 21 24-32 L [facility] HospitalCudamveJKUMJUYOF9887-56-90 19:20:00 Test Item Value Reference Range Interpretation Comments Chloride Lvl (test code = Chloride Lvl) 104 95-109 N [facility] HospitalLwocuxmULAPTHWNR8170-56-39 19:20:00 Test Item Value Reference Range Interpretation Comments AGAP (test code = AGAP) 16.0 10.0-20.0 N [facility] HospitalUhjxhaqUKAQYWNBL7614-89-43 19:20:00 Test Item Value Reference Range Interpretation Comments Glucose Lvl (test code = Glucose Lvl) 86 70-99 N [facility] HospitalVomxfilHSNQKRNKK4224-50-48 19:20:00 Test Item Value Reference Range Interpretation Comments Creatinine Lvl (test code = Creatinine 1.8 0.5-1.4 H Lvl) [facility] HospitalLluqgmoHVXECHOIQ7033-19-39 19:20:00 Test Item Value Reference Range Interpretation Comments Potassium Lvl (test code = Potassium 4.0 3.5-5.1 N Lvl) [facility] HospitalMmvlcquJDHGGZSML5484-50-72 19:20:00 Test Item Value Reference Range Interpretation Comments Sodium Lvl (test code = Sodium Lvl) 137 135-145 N [facility] HospitalWvtmjroWLVNWVWCU7811-03-85 19:20:00 Test Item Value Reference Range Interpretation Comments BUN (test code = BUN) 25 7-22 H [facility] HospitalDgslngiJTOJGSYEQ7834-06-00 19:20:00 Test Item Value Reference Range Interpretation Comments Calcium Lvl (test code = Calcium Lvl) 8.7 8.5-10.5 N [facility] HospitalCwqazugGFVCOPEXL5384-18-19 19:20:00 Test Item Value Reference Range Interpretation Comments CO2 (test code = CO2) 21 24-32 L [facility] HospitalYclonndFXQUKWBOU6451-46-04 19:20:00 Test Item Value Reference Range Interpretation Comments Chloride Lvl (test code = Chloride Lvl) 104 95-109 N [facility] HospitalNhhlohnBRGQYTOZM4949-78-91 19:20:00 Test Item Value Reference Range Interpretation Comments AGAP (test code = AGAP) 16.0 10.0-20.0 N [facility] HospitalXjkqibjGXPZTKAGE4740-27-52 19:20:00 Test Item Value Reference Range Interpretation Comments Glucose Lvl (test code = Glucose Lvl) 86 70-99 N [facility] HospitalOaztwkuVARYWAPPQ6525-50-94 19:20:00 Test Item Value Reference Range Interpretation Comments Creatinine Lvl (test code = Creatinine 1.8 0.5-1.4 H Lvl) [facility] HospitalJtwiegnOTDQVVSSK0172-09-21 19:20:00 Test Item Value Reference Range Interpretation Comments Potassium Lvl (test code = Potassium 4.0 3.5-5.1 N Lvl) [facility] HospitalMywelyiTUMNPXNFC5289-69-34 19:20:00 Test Item Value Reference Range Interpretation Comments Sodium Lvl (test code = Sodium Lvl) 137 135-145 N [facility] HospitalQkhbktgOYTACNHIS6888-77-95 19:20:00 Test Item Value Reference Range Interpretation Comments BUN (test code = BUN) 25 7-22 H [facility] HospitalTejgnczWFWDWYELA5672-27-27 19:20:00 Test Item Value Reference Range Interpretation Comments Calcium Lvl (test code = Calcium Lvl) 8.7 8.5-10.5 N [facility] HospitalWuwxkroQHKIBJQCT0679-20-74 19:20:00 Test Item Value Reference Range Interpretation Comments CO2 (test code = CO2) 21 24-32 L [facility] HospitalKhjhrdlAHVFECOIG4555-35-45 19:20:00 Test Item Value Reference Range Interpretation Comments Chloride Lvl (test code = Chloride Lvl) 104 95-109 N [facility] HospitalMxcmwbdXPKUFVGWS1037-98-39 19:20:00 Test Item Value Reference Range Interpretation Comments AGAP (test code = AGAP) 16.0 10.0-20.0 N [facility] HospitalMogynztYWDGSKQSZ2232-11-98 19:20:00 Test Item Value Reference Range Interpretation Comments Glucose Lvl (test code = Glucose Lvl) 86 70-99 N [facility] HospitalRgolasiQKVBRANUJ3036-39-86 18:40:00 Test Item Value Reference Range Interpretation Comments Uric Acid (test code = Uric Acid) 8.3 3.8-8.0 H [facility] HospitalVmpjbdoLAJWXWCHX4019-92-94 18:40:00 Test Item Value Reference Range Interpretation Comments B/C Ratio (test code = B/C Ratio) 14 6-25 N [facility] HospitalDnvlakqVXDBVUFXY9789-30-59 18:40:00 Test Item Value Reference Range Interpretation Comments Globulin (test code = Globulin) 5.3 2.0-4.0 H [facility] HospitalEpfkodeDHFWVVOJN8952-95-34 18:40:00 Test Item Value Reference Range Interpretation Comments A/G Ratio (test code = A/G Ratio) 0.6 0.7-1.6 L [facility] HospitalWndsojrMZLGMFTPT7963-79-74 18:40:00 Test Item Value Reference Range Interpretation Comments AST (test code = AST) 18 See_Comment N [Auto mated message] The system which ge nerated this result transmit cruz reference range : <=37. The reference range was not used to interpr et this result as gee l/abnormal. [facility] HospitalGkfuywbZNEGZIBVN1716-66-45 18:40:00 Test Item Value Reference Range Interpretation Comments Bili Total (test code = Bili Total) 0.6 0.2-1.3 N [facility] HospitalWlenjnoPCMFFBDVP5200-81-72 18:40:00 Test Item Value Reference Range Interpretation Comments ALT (test code = ALT) 34 See_Comment N [Auto mated message] The system which ge nerated this result transmit cruz reference range : <=65. The reference range was not used to interpr et this result as gee l/abnormal. [facility] HospitalPigbrpeTBQYQNCYT4176-40-85 18:40:00 Test Item Value Reference Range Interpretation Comments Alk Phos (test code = Alk Phos) 97 39-136 N [facility] HospitalLaxcvgwNUBFPFHHY4882-03-95 18:40:00 Test Item Value Reference Range Interpretation Comments Total Protein (test code = Total 8.6 6.4-8.4 H Protein) [facility] HospitalRjbhiclLKYKGGAVL4174-15-96 18:40:00 Test Item Value Reference Range Interpretation Comments Albumin Lvl (test code = Albumin Lvl) 3.3 3.5-5.0 L [facility]JauwemcYVOVJFIPQX7090-33-51 18:40:00 Test Item Value Reference Range Interpretation Comments MCV (test code = MCV) 95.9 80.0-94.0 H [facility] HospitalKzzvwnyWFDZICIXAR0482-17-99 18:40:00 Test Item Value Reference Range Interpretation Comments Hgb (test code = Hgb) 16.3 14.0-18.0 N [facility] HospitalHuhgoolPVKWVNFSWR9697-96-71 18:40:00 Test Item Value Reference Range Interpretation Comments Hct (test code = Hct) 48.3 42.0-54.0 N [facility] HospitalIrcmjkrJSKOKVHCRM4147-72-83 18:40:00 Test Item Value Reference Range Interpretation Comments RBC (test code = RBC) 5.03 4.70-6.10 N [facility] HospitalHeiuzqvYWNSXGCYUK6522-82-42 18:40:00 Test Item Value Reference Range Interpretation Comments WBC (test code = WBC) 12.3 3.7-10.4 H [facility] HospitalKjmdyagLQMATWHTCA0814-13-48 18:40:00 Test Item Value Reference Range Interpretation Comments MCH (test code = MCH) 32.5 pg 27.0-31.0 H [facility] HospitalJjayfnaRKZKDCSPKX8831-93-36 18:40:00 Test Item Value Reference Range Interpretation Comments Platelet (test code = Platelet) 160 133-450 N [facility] HospitalAhjknlqDVLPCCSFNY7458-21-68 18:40:00 Test Item Value Reference Range Interpretation Comments RDW (test code = RDW) 12.9 11.5-14.5 N [facility] HospitalUveikemVMGMKLTZXH9851-87-86 18:40:00 Test Item Value Reference Range Interpretation Comments MPV (test code = MPV) 9.4 7.4-10.4 N [facility] HospitalAcsngbnPDVDUJHEVM1842-84-34 18:40:00 Test Item Value Reference Range Interpretation Comments MCHC (test code = MCHC) 33.8 32.0-36.0 N [facility] HospitalAasondiMPYYDEFKES2988-21-48 18:40:00 Test Item Value Reference Range Interpretation Comments Monocytes # (test code 0.6 See_Comment N [Aut omated message] The = Monocytes #) system which generated this result tra nsmitted reference range : <=0.8. The reference r jillian was not used to int erpret this result as normal/abnormal . [facility] HospitalUkxggdrBEZPKXFQYQ3854-90-62 18:40:00 Test Item Value Reference Range Interpretation Comments Macrocyte (test code = 1+ *ABN*(01/08/2012 A Macrocyte) 13:40:00) [facility] HospitalWofwiexGEZTCXCJXC8765-47-54 18:40:00 Test Item Value Reference Range Interpretation Comments Eosinophils # (test code 0.0 See_Comment N [A utomated message] The = Eosinophils #) system whic h generated this result tra nsmitted reference range : <=0.5. The reference r jillian was not used to int erpret this result as normal/abnormal . [facility] HospitalAluejbkAQFOYEMEBC2977-74-85 18:40:00 Test Item Value Reference Range Interpretation Comments Lymphocytes # (test code = Lymphocytes 1.5 1.0-5.5 N #) [facility] HospitalZhnljnsFAKGHEYVSY4187-99-96 18:40:00 Test Item Value Reference Range Interpretation Comments Segs-Bands # (test code = Segs-Bands #) 10.1 1.5-8.1 H [facility] HospitalTddyzvhCQPJSSMSDQ9232-96-18 18:40:00 Test Item Value Reference Range Interpretation Comments Eosinophils (test code = 0.2 See_Comment N [A utomated message] The Eosinophils) system which ge nerated this result tra nsmitted reference range : <=4.0. The reference r jillian was not used to int erpret this result as normal/abnormal . [facility] HospitalQvqxtbeHANTFKYWBI8560-58-81 18:40:00 Test Item Value Reference Range Interpretation Comments Basophils (test code = 0.3 See_Comment N [Aut omated message] The Basophils) system which ge nerated this result tra nsmitted reference range : <=1.0. The reference r jillian was not used to int erpret this result as normal/abnormal . [facility] HospitalHzcnidmQMXIDGFGRQ0167-59-80 18:40:00 Test Item Value Reference Range Interpretation Comments Segs (test code = Segs) 82.4 45.0-75.0 H [facility] HospitalOutxwvgLELAFOWWOS7481-93-40 18:40:00 Test Item Value Reference Range Interpretation Comments Monocytes (test code = Monocytes) 4.6 2.0-12.0 N [facility] HospitalRpycflwLEANHPWJPV0614-38-58 18:40:00 Test Item Value Reference Range Interpretation Comments Lymphocytes (test code = Lymphocytes) 12.5 20.0-40.0 L [facility] HospitalMjpmdquNXCBUJHNVC5489-94-94 18:40:00 Test Item Value Reference Range Interpretation Comments Plt Morph (test code = Normal (01/08/2012 N Plt Morph) 13:40:00) [facility]MhqkbooAIYXBYEMCS9007-70-65 18:40:00 Test Item Value Reference Range Interpretation Comments RBC Morph (test code = Normal (01/08/2012 N RBC Morph) 13:40:00) [facility] DistrictGhrmbzgARCOCHINRL1226-76-37 18:40:00 Test Item Value Reference Range Interpretation Comments CRP, High Sensitivity (test code = CRP, 79.6 High Sensitivity) [facility] DistrictWmswbtiCZOYITJVW8553-60-81 18:40:00 Test Item Value Reference Range Interpretation Comments Uric Acid (test code = Uric Acid) 8.3 3.8-8.0 H [facility] HospitalNalbgqdKPRKLPBVK7109-31-23 18:40:00 Test Item Value Reference Range Interpretation Comments B/C Ratio (test code = B/C Ratio) 14 6-25 N [facility] HospitalOuapninJMCCXWXAD1592-52-05 18:40:00 Test Item Value Reference Range Interpretation Comments Globulin (test code = Globulin) 5.3 2.0-4.0 H [facility] HospitalAohpjmhOUVWNPNZH4360-79-70 18:40:00 Test Item Value Reference Range Interpretation Comments A/G Ratio (test code = A/G Ratio) 0.6 0.7-1.6 L [facility] HospitalXmubpmbXEBGSQSKH1799-52-64 18:40:00 Test Item Value Reference Range Interpretation Comments AST (test code = AST) 18 See_Comment N [Auto mated message] The system which ge nerated this result transmit cruz reference range : <=37. The reference range was not used to interpr et this result as gee l/abnormal. [facility] HospitalKpleiecQBTNDDLSF2415-37-07 18:40:00 Test Item Value Reference Range Interpretation Comments Bili Total (test code = Bili Total) 0.6 0.2-1.3 N [facility] HospitalHaqbhfzLRCOQIBVN6989-58-73 18:40:00 Test Item Value Reference Range Interpretation Comments ALT (test code = ALT) 34 See_Comment N [Auto mated message] The system which ge nerated this result transmit cruz reference range : <=65. The reference range was not used to interpr et this result as gee l/abnormal. [facility] HospitalAwixalnWXIAYEUSS9728-33-16 18:40:00 Test Item Value Reference Range Interpretation Comments Alk Phos (test code = Alk Phos) 97 39-136 N [facility] HospitalGxhzrkfUEFBLMCMO4873-05-29 18:40:00 Test Item Value Reference Range Interpretation Comments Total Protein (test code = Total 8.6 6.4-8.4 H Protein) [facility] HospitalEofmjkbGMUEXSCTD0099-33-15 18:40:00 Test Item Value Reference Range Interpretation Comments Albumin Lvl (test code = Albumin Lvl) 3.3 3.5-5.0 L [facility] HospitalHgeiuqkTVFCRSEPKR1706-68-94 18:40:00 Test Item Value Reference Range Interpretation Comments MCV (test code = MCV) 95.9 80.0-94.0 H [facility] HospitalLawhprtZIJNICBWUK0625-89-72 18:40:00 Test Item Value Reference Range Interpretation Comments Hgb (test code = Hgb) 16.3 14.0-18.0 N [facility] HospitalPyzfjojGZAJIYRLNY7486-01-80 18:40:00 Test Item Value Reference Range Interpretation Comments Hct (test code = Hct) 48.3 42.0-54.0 N [facility] HospitalPejhgzxEAGCOCEMDS3767-39-65 18:40:00 Test Item Value Reference Range Interpretation Comments RBC (test code = RBC) 5.03 4.70-6.10 N [facility] HospitalSnwchhqNXFXSQQOSU0767-91-82 18:40:00 Test Item Value Reference Range Interpretation Comments WBC (test code = WBC) 12.3 3.7-10.4 H [facility] HospitalKxksxhcKYDSCOVMGC3832-96-68 18:40:00 Test Item Value Reference Range Interpretation Comments MCH (test code = MCH) 32.5 pg 27.0-31.0 H [facility] HospitalAgdclmbKPYNUPYLHV3972-95-63 18:40:00 Test Item Value Reference Range Interpretation Comments Platelet (test code = Platelet) 160 133-450 N [facility] HospitalMvwbnqgLVEFITVXTC6087-94-87 18:40:00 Test Item Value Reference Range Interpretation Comments RDW (test code = RDW) 12.9 11.5-14.5 N [facility] HospitalQkjosdsRVERZYAJSI2654-95-39 18:40:00 Test Item Value Reference Range Interpretation Comments MPV (test code = MPV) 9.4 7.4-10.4 N [facility] HospitalDevgujkFJEDXQFCFU8950-90-64 18:40:00 Test Item Value Reference Range Interpretation Comments MCHC (test code = MCHC) 33.8 32.0-36.0 N [facility] HospitalXbzowqxJINNNOFENU6675-82-08 18:40:00 Test Item Value Reference Range Interpretation Comments Monocytes # (test code 0.6 See_Comment N [Aut omated message] The = Monocytes #) system which generated this result tra nsmitted reference range : <=0.8. The reference r jillian was not used to int erpret this result as normal/abnormal . [facility] HospitalSuyfpmsVCFETRVGXN3454-04-16 18:40:00 Test Item Value Reference Range Interpretation Comments Macrocyte (test code = 1+ *ABN*(01/08/2012 A Macrocyte) 13:40:00) [facility] HospitalJjdjqwwKDAHYMMDEJ5645-06-65 18:40:00 Test Item Value Reference Range Interpretation Comments Eosinophils # (test code 0.0 See_Comment N [A utomated message] The = Eosinophils #) system whic h generated this result tra nsmitted reference range : <=0.5. The reference r jillian was not used to int erpret this result as normal/abnormal . [facility] HospitalWlwyuhvCUYFVUHJKR2848-82-82 18:40:00 Test Item Value Reference Range Interpretation Comments Lymphocytes # (test code = Lymphocytes 1.5 1.0-5.5 N #) [facility] HospitalNxuixkpLYVECCUAXG1831-03-70 18:40:00 Test Item Value Reference Range Interpretation Comments Segs-Bands # (test code = Segs-Bands #) 10.1 1.5-8.1 H [facility] HospitalYdcuzkjPYKQSLKMNZ5293-11-07 18:40:00 Test Item Value Reference Range Interpretation Comments Eosinophils (test code = 0.2 See_Comment N [A utomated message] The Eosinophils) system which ge nerated this result tra nsmitted reference range : <=4.0. The reference r jillain was not used to int erpret this result as normal/abnormal . [facility] HospitalFkldxejEBHJUZYCAI9476-36-66 18:40:00 Test Item Value Reference Range Interpretation Comments Basophils (test code = 0.3 See_Comment N [Aut omated message] The Basophils) system which ge nerated this result tra nsmitted reference range : <=1.0. The reference r jillian was not used to int erpret this result as normal/abnormal . [facility] HospitalVwvspjgKCGGOVUTKP4906-17-43 18:40:00 Test Item Value Reference Range Interpretation Comments Segs (test code = Segs) 82.4 45.0-75.0 H [facility] HospitalWbxnfktPFDSFZOULR2902-65-04 18:40:00 Test Item Value Reference Range Interpretation Comments Monocytes (test code = Monocytes) 4.6 2.0-12.0 N [facility] HospitalBwgecikGKFNXYYKAG6683-20-44 18:40:00 Test Item Value Reference Range Interpretation Comments Lymphocytes (test code = Lymphocytes) 12.5 20.0-40.0 [facility]GN[facility] 18:40:00 Test Item Value Reference Range Interpretation Comments Plt Morph (test code = Normal (01/08/2012 N Plt Morph) 13:40:00) [facility]ZlalpcaEDPSUGTUWI0974-70-54 18:40:00 Test Item Value Reference Range Interpretation Comments RBC Morph (test code = Normal (01/08/2012 N RBC Morph) 13:40:00) [facility] DistrictQvhplwqSCFZRQJELI6251-54-32 18:40:00 Test Item Value Reference Range Interpretation Comments CRP, High Sensitivity (test code = CRP, 79.6 High Sensitivity) [facility] HospitalIgqdvrzCAPBGCREX7465-08-03 18:40:00 Test Item Value Reference Range Interpretation Comments Uric Acid (test code = Uric Acid) 8.3 3.8-8.0 H [facility] HospitalPlscjnrSLSUEZKJR3973-20-52 18:40:00 Test Item Value Reference Range Interpretation Comments B/C Ratio (test code = B/C Ratio) 14 6-25 N [facility] HospitalUfqiastZFXKWCMQT5194-87-22 18:40:00 Test Item Value Reference Range Interpretation Comments Globulin (test code = Globulin) 5.3 2.0-4.0 H [facility] HospitalZdcpyqtCXXUGNENI5221-62-09 18:40:00 Test Item Value Reference Range Interpretation Comments A/G Ratio (test code = A/G Ratio) 0.6 0.7-1.6 L [facility] HospitalEdmsracXGMAPKXIG0948-55-64 18:40:00 Test Item Value Reference Range Interpretation Comments AST (test code = AST) 18 See_Comment N [Auto mated message] The system which ge nerated this result transmit cruz reference range : <=37. The reference range was not used to interpr et this result as gee l/abnormal. [facility] HospitalYtdnsusMXWYOZTBK1320-50-99 18:40:00 Test Item Value Reference Range Interpretation Comments Bili Total (test code = Bili Total) 0.6 0.2-1.3 N [facility]OcvgjenGIKUJCBOR6583-45-77 18:40:00 Test Item Value Reference Range Interpretation Comments ALT (test code = ALT) 34 See_Comment N [Auto mated message] The system which ge nerated this result transmit cruz reference range : <=65. The reference range was not used to interpr et this result as gee l/abnormal. [facility] HospitalYllaamdSFCSOUSJK1954-70-29 18:40:00 Test Item Value Reference Range Interpretation Comments Alk Phos (test code = Alk Phos) 97 39-136 N [facility] HospitalSmzxemuGKOVHLDMS1013-51-28 18:40:00 Test Item Value Reference Range Interpretation Comments Total Protein (test code = Total 8.6 6.4-8.4 H Protein) [facility] HospitalYwbmqghMXIVCYSCN4001-45-54 18:40:00 Test Item Value Reference Range Interpretation Comments Albumin Lvl (test code = Albumin Lvl) 3.3 3.5-5.0 L [facility]HxomkmtNFVTKPWZGC9062-86-90 18:40:00 Test Item Value Reference Range Interpretation Comments MCV (test code = MCV) 95.9 80.0-94.0 H [facility] HospitalYybbasiCHVXSQGTJC1852-48-34 18:40:00 Test Item Value Reference Range Interpretation Comments Hgb (test code = Hgb) 16.3 14.0-18.0 N [facility] HospitalGtfigqbWQFDOWKJWL6238-14-83 18:40:00 Test Item Value Reference Range Interpretation Comments Hct (test code = Hct) 48.3 42.0-54.0 N [facility] HospitalFjatspaMXAUVBIHON1366-85-63 18:40:00 Test Item Value Reference Range Interpretation Comments RBC (test code = RBC) 5.03 4.70-6.10 N [facility] HospitalDsvrilzQREDJCOWVA8219-89-71 18:40:00 Test Item Value Reference Range Interpretation Comments WBC (test code = WBC) 12.3 3.7-10.4 H [facility] HospitalIsxggjbPTNJWMIAXH4279-73-01 18:40:00 Test Item Value Reference Range Interpretation Comments MCH (test code = MCH) 32.5 pg 27.0-31.0 H [facility] HospitalMgvvaocZIBFIUTYKN0643-96-55 18:40:00 Test Item Value Reference Range Interpretation Comments Platelet (test code = Platelet) 160 133-450 N [facility] HospitalFewnkfeNVPJKDBSYZ7725-83-82 18:40:00 Test Item Value Reference Range Interpretation Comments RDW (test code = RDW) 12.9 11.5-14.5 N [facility] HospitalMkdxbtxEMSPQHZXHP5222-18-14 18:40:00 Test Item Value Reference Range Interpretation Comments MPV (test code = MPV) 9.4 7.4-10.4 N [facility] HospitalCxwwjoyBJWQICICKT6577-29-14 18:40:00 Test Item Value Reference Range Interpretation Comments MCHC (test code = MCHC) 33.8 32.0-36.0 N [facility] HospitalZajqdmbKBUMYGRVDY9785-59-60 18:40:00 Test Item Value Reference Range Interpretation Comments Monocytes # (test code 0.6 See_Comment N [Aut omated message] The = Monocytes #) system which generated this result tra nsmitted reference range : <=0.8. The reference r jillian was not used to int erpret this result as normal/abnormal . [facility] HospitalGjhqfyhXZPMOASTFV7718-37-86 18:40:00 Test Item Value Reference Range Interpretation Comments Macrocyte (test code = 1+ *ABN*(01/08/2012 A Macrocyte) 13:40:00) [facility] HospitalTidkofjMPXCRQVCRK6801-74-92 18:40:00 Test Item Value Reference Range Interpretation Comments Eosinophils # (test code 0.0 See_Comment N [A utomated message] The = Eosinophils #) system [facility] generated this result tra nsmitted reference range : <=0.5. The reference r jillian was not used to int erpret this result as normal/abnormal . [facility] HospitalRtbsrmyZTDGXOKZKC8291-98-67 18:40:00 Test Item Value Reference Range Interpretation Comments Lymphocytes # (test code = Lymphocytes 1.5 1.0-5.5 N #) [facility] HospitalCwtghyjGULAPVEHZN9389-29-42 18:40:00 Test Item Value Reference Range Interpretation Comments Segs-Bands # (test code = Segs-Bands #) 10.1 1.5-8.1 H [facility] HospitalHnhwnwxOBWJNGBRED6176-40-34 18:40:00 Test Item Value Reference Range Interpretation Comments Eosinophils (test code = 0.2 See_Comment N [A utomated message] The Eosinophils) system which ge nerated this result tra nsmitted reference range : <=4.0. The reference r jillian was not used to int erpret this result as normal/abnormal . [facility] HospitalVhkhtweYAHDGCOYDE0062-10-56 18:40:00 Test Item Value Reference Range Interpretation Comments Basophils (test code = 0.3 See_Comment N [Aut omated message] The Basophils) system which ge nerated this result tra nsmitted reference range : <=1.0. The reference r jillian was not used to int erpret this result as normal/abnormal . [facility] HospitalOqtbxyqIWGPQSOSZW5617-91-25 18:40:00 Test Item Value Reference Range Interpretation Comments Segs (test code = Segs) 82.4 45.0-75.0 H [facility] HospitalPlpguczSPWFLCKNGS1695-14-60 18:40:00 Test Item Value Reference Range Interpretation Comments Monocytes (test code = Monocytes) 4.6 2.0-12.0 N [facility] HospitalYwngputNOMFYUHLWV8582-58-66 18:40:00 Test Item Value Reference Range Interpretation Comments Lymphocytes (test code = Lymphocytes) 12.5 20.0-40.0 L [facility] DistrictTsaqvxdIHYKTXSGUP0846-28-17 18:40:00 Test Item Value Reference Range Interpretation Comments Plt Morph (test code = Normal (01/08/2012 N Plt Morph) 13:40:00) [facility] DistrictHgufoicSJZAQLXDMY5939-89-51 18:40:00 Test Item Value Reference Range Interpretation Comments RBC Morph (test code = Normal (01/08/2012 N RBC Morph) 13:40:00) [facility] DistrictClxblgdKIKBMFTCAA0971-30-96 18:40:00 Test Item Value Reference Range Interpretation Comments CRP, High Sensitivity (test code = CRP, 79.6 High Sensitivity) [facility] CampusNjiihppDwlqcwybwatf5153-85-16 18:32:00 Test Item Value Reference Range Interpretation Comments Culture: Blood (test code = Culture: Blood) [facility] CampusWibqowrAvkgznhtajql9842-95-08 18:32:00 Test Item Value Reference Range Interpretation Comments Culture: Blood (test code = Culture: Blood) [facility] CampusQbvocboVmsziztjoprv5221-29-07 18:32:00 Test Item Value Reference Range Interpretation Comments Culture: Blood (test code = Culture: Blood) [facility] CampusCuvvpzxRhnbotrcxtnp1429-13-95 18:25:00 Test Item Value Reference Range Interpretation Comments Culture: Blood (test code = Culture: Blood) [facility] CampusRjsuepkGaycoluiukzn4753-88-14 18:25:00 Test Item Value Reference Range Interpretation Comments Culture: Blood (test code = Culture: Blood) [facility] CampusOizqtdsKargozptgniq3636-16-08 18:25:00 Test Item Value Reference Range Interpretation Comments Culture: Blood (test code = Culture: Blood) [facility] DistrictCipxygpTHYFBDZNZM3047-96-10 17:30:00 Test Item Value Reference Range Interpretation Comments UA Urobilinogen (test code *NA*(01/08/2012 0.1-1.0 = UA Urobilinogen) 12:30:00) [facility] DistrictAmdngguMSBXAJMJFK3339-40-20 17:30:00 Test Item Value Reference Range Interpretation Comments UA WBC (test code = 1 See_Comment N [Automa cruz message] The UA WBC) system which ge nerated this result transmit cruz reference range : <=5. The reference range was not used to interpr et this result as gee l/abnormal. [facility] DistrictOiwspglTRNKZJLZDE8646-86-75 17:30:00 Test Item Value Reference Range Interpretation Comments UA RBC (test code = no gt See_Comment N [Automa cruz message] The UA RBC) system which ge nerated this result transmit cruz reference range : <=2. The reference range was not used to interpr et this result as gee l/abnormal. [facility]EdjubbhYVRYTXUHZZ7909-93-34 17:30:00 Test Item Value Reference Range Interpretation Comments UA Mucus (test code = Few /LPF UA Mucus) *NA*(01/08/2012 12:30:00) [facility] CenterSlmzzbeOESSHCFTLW9364-30-26 17:30:00 Test Item Value Reference Range Interpretation Comments UA Nitrite (test code Negative (01/08/2012 N = UA Nitrite) 12:30:00) [facility] CenterWskarfsTBAVVMBKNA3253-41-25 17:30:00 Test Item Value Reference Range Interpretation Comments UA Leuk Est (test Negative (01/08/2012 N code = UA Leuk Est) 12:30:00) [facility] CenterSarcuutIZNKADHAFI9515-57-46 17:30:00 Test Item Value Reference Range Interpretation Comments UA Ketones (test code Negative mg/dL = UA Ketones) *NA*(01/08/2012 12:30:00) [facility] CenterTysfeplDDYOIUZFTP0054-27-15 17:30:00 Test Item Value Reference Range Interpretation Comments UA Bili (test code = Negative *NA*(01/08/2012 UA Bili) 12:30:00) [facility] CenterXgezssiCGDQTUOTWN6035-00-57 17:30:00 Test Item Value Reference Range Interpretation Comments UA Blood (test code = Negative (01/08/2012 N UA Blood) 12:30:00) [facility] CenterJzxclwoYVUZUZHNIE5510-56-95 17:30:00 Test Item Value Reference Range Interpretation Comments UA pH (test code = UA pH) 5.5 5.0-8.0 N [facility]lineBvbkvrpMHGKMTWGAJ1563-16-19 17:30:00 Test Item Value Reference Range Interpretation Comments UA Protein (test code = 200 mg/dL A UA Protein) *ABN*(01/08/2012 12:30:00) [facility] CenterPaesbwuJQNHYPIDVH1298-27-18 17:30:00 Test Item Value Reference Range Interpretation Comments UA Glucose (test code Negative mg/dL = UA Glucose) *NA*(01/08/2012 12:30:00) [facility] DistrictDblvyftUXOYMGUHBM4093-16-25 17:30:00 Test Item Value Reference Range Interpretation Comments UA Sq Epi (test code = UA Sq Epi) None Seen [facility]lineFneocvuTUDIBFBTMB5500-20-44 17:30:00 Test Item Value Reference Range Interpretation Comments UA Spec Grav (test code = UA Spec Grav) 1.012 N [facility]ZmoglyjNMPKQMKWHZ3844-18-22 17:30:00 Test Item Value Reference Range Interpretation Comments UA Color (test code = Yellow *NA*(01/08/2012 UA Color) 12:30:00) [facility] CenterNluqjymBYEJPYZZZC1738-01-54 17:30:00 Test Item Value Reference Range Interpretation Comments UA Turbidity (test code = Clear (01/08/2012 N UA Turbidity) 12:30:00) [facility] DistrictMwbnustKsbphzwsanke9414-86-89 17:30:00 Test Item Value Reference Range Interpretation Comments Culture: Urine (test code = Culture: Urine) [facility] DistrictJfqctqfZKENJHTZRS2023-37-40 17:30:00 Test Item Value Reference Range Interpretation Comments UA Urobilinogen (test code *NA*(01/08/2012 0.1-1.0 = UA Urobilinogen) 12:30:00) [facility] DistrictMmmokmjAJDPYLPAZW3348-42-31 17:30:00 Test Item Value Reference Range Interpretation Comments UA WBC (test code = 1 See_Comment N [Automa cruz message] The UA WBC) system which ge nerated this result transmit cruz reference range : <=5. The reference range was not used to interpr et this result as gee l/abnormal. [facility] DistrictJuctqmjMQKWAAHACW3949-11-98 17:30:00 Test Item Value Reference Range Interpretation Comments UA RBC (test code = no gt See_Comment N [Automa cruz message] The UA RBC) system which ge nerated this result transmit cruz reference range : <=2. The reference range was not used to interpr et this result as gee l/abnormal. [facility] DistrictCdibgsfVGACRVNMMU4966-33-98 17:30:00 Test Item Value Reference Range Interpretation Comments UA Mucus (test code = Few /LPF UA Mucus) *NA*(01/08/2012 12:30:00) [facility] CenterUadknvnIDLUFPKMLG3839-06-95 17:30:00 Test Item Value Reference Range Interpretation Comments UA Nitrite (test code Negative (01/08/2012 N = UA Nitrite) 12:30:00) [facility] CenterBlebjvzDLNFVYTKSU2208-06-10 17:30:00 Test Item Value Reference Range Interpretation Comments UA Leuk Est (test Negative (01/08/2012 N code = UA Leuk Est) 12:30:00) [facility] CenterSxzaqwtFVMEITQSMN4841-11-90 17:30:00 Test Item Value Reference Range Interpretation Comments UA Ketones (test code Negative mg/dL = UA Ketones) *NA*(01/08/2012 12:30:00) [facility] CenterCkbvaglQEWDWEGHXH5223-58-61 17:30:00 Test Item Value Reference Range Interpretation Comments UA Bili (test code = Negative *NA*(01/08/2012 UA Bili) 12:30:00) [facility] CenterOsdvksoZRFPOXMLEJ9236-49-34 17:30:00 Test Item Value Reference Range Interpretation Comments UA Blood (test code = Negative (01/08/2012 N UA Blood) 12:30:00) [facility] CenterGycjugfIEHFZGJIWJ1180-73-00 17:30:00 Test Item Value Reference Range Interpretation Comments UA pH (test code = UA pH) 5.5 5.0-8.0 N [facility] CenterUkzthalXGUTRRISPK6570-07-71 17:30:00 Test Item Value Reference Range Interpretation Comments UA Protein (test code = 200 mg/dL A UA Protein) *ABN*(01/08/2012 12:30:00) [facility] CenterUtnecgwLTWHYGUMQG2955-84-13 17:30:00 Test Item Value Reference Range Interpretation Comments UA Glucose (test code Negative mg/dL = UA Glucose) *NA*(01/08/2012 12:30:00) [facility] CenterFjwjewoRSJNSWZGDT7193-93-35 17:30:00 Test Item Value Reference Range Interpretation Comments UA Sq Epi (test code = UA Sq Epi) None Seen [facility] CenterEdqmfjbDVUHKOWHBP3748-56-75 17:30:00 Test Item Value Reference Range Interpretation Comments UA Spec Grav (test code = UA Spec Grav) 1.012 N [facility] CenterYewolwcBQFDYUTCZY4401-09-36 17:30:00 Test Item Value Reference Range Interpretation Comments UA Color (test code = Yellow *NA*(01/08/2012 UA Color) 12:30:00) [facility] DistrictUflvvqgHSHXFBKBQW5063-65-83 17:30:00 Test Item Value Reference Range Interpretation Comments UA Turbidity (test code = Clear (01/08/2012 N UA Turbidity) 12:30:00) [facility] DistrictWxamwrdAjvpvmzpyhnx8642-41-69 17:30:00 Test Item Value Reference Range Interpretation Comments Culture: Urine (test code = Culture: Urine) [facility] ShorelineQuaeaakVFUTBASPSB9443-06-63 17:30:00 Test Item Value Reference Range Interpretation Comments UA Urobilinogen (test code *NA*(01/08/2012 0.1-1.0 = UA Urobilinogen) 12:30:00) [facility] ShorelineQtsfrejJWPUHJWWBA2110-42-91 17:30:00 Test Item Value Reference Range Interpretation Comments UA WBC (test code = 1 See_Comment N [Automa cruz message] The UA WBC) system which ge nerated this result transmit cruz reference range : <=5. The reference range was not used to interpr et this result as gee l/abnormal. [facility] DistrictRmfceecPAUYJCWMLM3052-21-24 17:30:00 Test Item Value Reference Range Interpretation Comments UA RBC (test code = no gt See_Comment N [Automa cruz message] The UA RBC) system which ge nerated this result transmit cruz reference range : <=2. The reference range was not used to interpr et this result as gee l/abnormal. [facility] ShorelineVfmtcbqHAEALIJSHK9064-91-71 17:30:00 Test Item Value Reference Range Interpretation Comments UA Mucus (test code = Few /LPF UA Mucus) *NA*(01/08/2012 12:30:00) [facility] DistrictBkydumoGIVHPEXJFR2740-67-38 17:30:00 Test Item Value Reference Range Interpretation Comments UA Nitrite (test code Negative (01/08/2012 N = UA Nitrite) 12:30:00) [facility] ShorelineTenwakfRMNYNYPIMD1601-69-71 17:30:00 Test Item Value Reference Range Interpretation Comments UA Leuk Est (test Negative (01/08/2012 N code = UA Leuk Est) 12:30:00) [facility] DistrictLjqegakODEFNPVGCH4405-15-56 17:30:00 Test Item Value Reference Range Interpretation Comments UA Ketones (test code Negative mg/dL = UA Ketones) *NA*(01/08/2012 12:30:00) [facility] ShorelineLdgzfevYFBIMXREYH5253-52-24 17:30:00 Test Item Value Reference Range Interpretation Comments UA Bili (test code = Negative *NA*(01/08/2012 UA Bili) 12:30:00) [facility] ShorelineDfwonjoGPCCIFBWMC4445-46-93 17:30:00 Test Item Value Reference Range Interpretation Comments UA Blood (test code = Negative (01/08/2012 N UA Blood) 12:30:00) [facility] ShorelinePgetojxBINSOREDWA8665-68-30 17:30:00 Test Item Value Reference Range Interpretation Comments UA pH (test code = UA pH) 5.5 5.0-8.0 N [facility] CenterOayanraTAFXSEHUQQ4327-53-77 17:30:00 Test Item Value Reference Range Interpretation Comments UA Protein (test code = 200 mg/dL A UA Protein) *ABN*(01/08/2012 12:30:00) [facility] ShorelineRhyosdiLYGKXPDZRS9495-70-34 17:30:00 Test Item Value Reference Range Interpretation Comments UA Glucose (test code Negative mg/dL = UA Glucose) *NA*(01/08/2012 12:30:00) [facility] ShorelineGhrbpqcLGEBVINHXE1194-31-77 17:30:00 Test Item Value Reference Range Interpretation Comments UA Sq Epi (test code = UA Sq Epi) None Seen [facility] CenterLmfndixEKTRQWAVTI3146-38-42 17:30:00 Test Item Value Reference Range Interpretation Comments UA Spec Grav (test code = UA Spec Grav) 1.012 N [facility] ShorelineCsbcohhGRBBENMRNL9238-32-82 17:30:00 Test Item Value Reference Range Interpretation Comments UA Color (test code = Yellow *NA*(01/08/2012 UA Color) 12:30:00) [facility] ShorelineVkxasyxWWNIHOYGLW8533-39-06 17:30:00 Test Item Value Reference Range Interpretation Comments UA Turbidity (test code = Clear (01/08/2012 N UA Turbidity) 12:30:00) [facility] DistrictPsatyncMxlhrbrlsuwx6316-30-20 17:30:00 Test Item Value Reference Range Interpretation Comments Culture: Urine (test code = Culture: Urine) [facility] History and Physical Notes Date/Time Note Provider Source 2022-12-14 17:17:00-00:00 Hanna Mitchell MD: [facility] PER[employer] Display: History and PhysicalAuthored Date: [id number] and Physical Primary Team Name:Team Contact Info:PCP Contact info:Family contact info: Rosy Ingram (friend) Code Status: None Specified=FULL CODE Chief Complaint: LUE swelling History of Present Illness: 57M w/ ESRD on HD (MWF), HTN, Hx CVA 10/2013 (residual LUE weakness and left facial droop), past polysubstance abuse > 10 years ago [place] [facility] [place] [facility]. Patient has had [...] for possible revision with [facility] in [place], however surgery has been postponed 2/2 supply [...] consult for intervention Ordered: Admit/Condition, 12/03/22 5:29:00 ICE CAR[facility], Status: Inpatient, Acute, Expected LOS: 2 Midnights, Hanna Mitchell MD, it Review/Approve Yes, Isolation: No Isolation/Standard Precautions, Complications, dialysis, catheter, mechanical | ESRD on hemodialysis 2. ESRD on hemodialysis (N18.6) Ordered: Renvela, 1,600 mg, Route: PO, TID-Meals, Dosing Weight 91.364, kg, Start date: 12/03/22 8:00:00 ICE CARVER, Duration: 30 day, Stop date: 01/01/23 17:00:00 CDT, Admit/Condition, 12/03/22 5:29:00 [facility], Status: Inpatient, Acute, Expected LOS: 2 Midnights, Hanna Mitchell MD, it Review/Approve Yes, Isolation: No Isolation/Standard Precautions, Complications, dialysis, catheter, mechanical | ESRD on hemodialysis 3. HTN (hypertension) (I10) Ordered: metoprolol tartrate, 25 mg, Route: PO, Drug form: TAB, Q12H, Dosing Weight 91.364, kg, Start date: 12/03/22 9:00:00 ICE CARVER, Duration: 30 day, Stop date: 01/01/23 21:00:00 CDT 4. History of stroke in adulthood (Z86.73) Residual LUE weakness/near paralysis and left facial droop N.p.o. after 3 AM for vascular surgery evaluation Prophylaxis -SCDs-Holding chemical VTE PPx at this time for evaluation for possible same-day invasive procedure Disposition Inpatient admissionBaHanna ascencio MDElectronically Signed: 12/03/22 05:37 2022-12-14 17:17:00-00:00 Hanna Mitchell MD: [facility] PERFORMEvent Display: History and PhysicalAuthored Date: [id number] and Physical Primary Team Name:Team Contact Info:PCP Contact info:Family contact info: Rosy Ingram (friend) Code Status: None Specified=FULL CODE Chief Complaint: LUE swelling History of Present Illness: 57M w/ ESRD on HD (MWF), HTN, Hx CVA 10/2013 (residual LUE weakness and left facial droop), past polysubstance abuse > 10 years ago [place] [facility] [place] [facility]. Patient has had [...] for possible revision with [facility] in [place], however surgery has been postponed 2/2 supply [...] consult for intervention Ordered: Admit/Condition, 12/03/22 5:29:00 ICE CARVER, Status: Inpatient, Acute, Expected LOS: 2 Midnights, Hanna Mitchell MD, Admit MD Review/Approve Yes, Isolation: No Isolation/Standard Precautions, Complications, dialysis, catheter, mechanical | ESRD on hemodialysis 2. ESRD on hemodialysis (N18.6) Ordered: Renvela, 1,600 mg, Route: PO, TID-Meals, Dosing Weight 91.364, kg, Start date: 12/03/22 8:00:00 ICE CARVER, Duration: 30 day, Stop date: 01/01/23 17:00:00 CDT, Admit/Condition, 12/03/22 5:29:00 [facility], Status: Inpatient, Acute, Expected LOS: 2 Midnights, Hanna Mitchell MD, Admit MD Review/Approve Yes, Isolation: No Isolation/Standard Precautions, Complications, dialysis, catheter, mechanical | ESRD on hemodialysis 3. HTN (hypertension) (I10) Ordered: metoprolol tartrate, 25 mg, Route: PO, Drug form: TAB, Q12H, Dosing Weight 91.364, kg, Start date: 12/03/22 9:00:00 ICE CARVER, Duration: 30 day, Stop date: 01/01/23 21:00:00 CDT 4. History of stroke in adulthood (Z86.73) Residual LUE weakness/near paralysis and left facial droop N.p.o. after 3 AM for vascular surgery evaluation Prophylaxis -SCDs-Holding chemical VTE PPx at this time for evaluation for possible same-day invasive procedure Disposition Inpatient admissionBaHanna ascencio MDElectronically Signed: 12/03/22 05:37 2022-12-14 17:17:00-00:00 Hanna Mitchell MD: [facility] PERFORMEvent Display: History and PhysicalAuthored Date: [id number] and Physical Primary Team Name:Team Contact Info:PCP Contact info:Family contact info: Rosy Ingrma (friend) Code Status: None Specified=FULL CODE Chief Complaint: LUE swelling History of Present Illness: 57M w/ ESRD on HD (MWF), HTN, Hx CVA 10/2013 (residual LUE weakness and left facial droop), past polysubstance abuse > 10 years ago [place] [facility] [place] [facility] for [facility] graft dysfunction. Patient has had [...] for possible revision with [facility] in [place], however surgery has been postponed 2/2 supply [...] consult for intervention Ordered: Admit/Condition, 12/03/22 5:29:00 ICE CARVER, Status: Inpatient, Acute, Expected LOS: 2 Midnights, Hanna Mitchell MD, Admit MD Review/Approve Yes, Isolation: No Isolation/Standard Precautions, Complications, dialysis, catheter, mechanical | ESRD on hemodialysis 2. ESRD on hemodialysis (N18.6) Ordered: Renvela, 1,600 mg, Route: PO, TID-Meals, Dosing Weight 91.364, kg, Start date: 12/03/22 8:00:00 ICE CARVER, Duration: 30 day, Stop date: 01/01/23 17:00:00 CDT, Admit/Condition, 12/03/22 5:29:00 [facility], Status: Inpatient, Acute, Expected LOS: 2 Midnights, Hanna Mitchell MD, Admit Review/Approve Yes, Isolation: No Isolation/Standard Precautions, Complications, dialysis, catheter, mechanical | ESRD on hemodialysis 3. HTN (hypertension) (I10) Ordered: metoprolol tartrate, 25 mg, Route: PO, Drug form: TAB, Q12H, Dosing Weight 91.364, kg, Start date: 12/03/22 9:00:00 ICE CARVER, Duration: 30 day, Stop date: 01/01/23 21:00:00 CDT 4. History of stroke in adulthood (Z86.73) Residual LUE weakness/near paralysis and left facial droop N.p.o. after 3 AM for vascular surgery evaluation Prophylaxis -SCDs-Holding chemical VTE PPx at this time for evaluation for possible same-day invasive procedure Disposition Inpatient admissionBacaHanna ascencio MDElectronically Signed: 12/03/22 05:37 Notes Date/Time [...] Matty Cote MD On 12/06/2022 07:43:05; MICHELLE [id number] 2022-12-06 PROCEDURE INFORMATION: Bry peck 07:15:23-00:00 Exam: XR Chest Exam date [...] Matty Cote MD On 12/06/2022 07:43:05; MICHELLE [id number] 2022-12-06 PROCEDURE INFORMATION: Bry peck 07:15:23-00:00 Exam: XR Chest Exam date [...] placement. Matty Cote MD On 12/06/2022 07:43:05; VR-K [id number] 2022-12-03 PROCEDURE INFORMATION: Bry peck 08:00:00-00:00 Exam: US Duplex Hemodialysis Access [...] Valentin Evans MD On 12/03/2022 09:19:45; VR -[id number] 2022-12-03 PROCEDURE INFORMATION: Bry peck 08:00:00-00:00 Exam: US Duplex Hemodialysis Access [...] Valentin Evans MD On 12/03/2022 09:19:45; VR -[id number] 2022-12-03 PROCEDURE INFORMATION: CARMINA peck 08:00:00-00:00 Exam: [...] Valentin Evans MD On 12/03/2022 09:19:45; VR -[id number] 2022-12-03 PROCEDURE INFORMATION: CARMINA peck 07:05:00-00:00 Exam: [...] 12/03/2022 08:03:26; [id number] 2022-12-03 PROCEDURE INFORMATION: MH Southe ast 07:05:00-00:00 Exam: XR Chest Exam date and [...] 12/03/2022 08:03:26; [id number] 2022-12-03 PROCEDURE INFORMATION: CARMINA Londono liv 07:05:00-00:00 Exam: XR Chest Exam date and [...] 2018-01-27 EXAM: XR LEFT KNEE 3 VIEWS [facility] 16:25:00-00:00 DATE: 01/27/[address] INDICATION: - L knee pain after fall COMPARISON: Left knee radiograph 11/03/2012 TECHNIQUE: 3 views of the knee FINDINGS: No acute fracture or malalignment is i dentified. No knee joint effusion is present. No soft tissu e abnormality is identified. IMPRESSION: No acute abnormality. UT SECTION: ER 2018-01-27 EXAM: XR LEFT KNEE 3 VIEWS [facility] 16:25:00-00:00 DATE: 01/27/2018 at 1619 hours [...] Total sedation time was 30 minutes. DAP :[id number] mgy-cm Fluoro time: 8.3 min PROCEDURE DETAILS: [...] wires, the catheter was exchanged for a 7-[place] vascular sheath. An SVC venogram was performe [...] use. 2017-04-10 PROCEDURES PERFORMED: Isabell Araujo and 12:02:35-00:00 1. Exchange of right [...] Total sedation time was 30 minutes. DAP :[id number] mgy-cm Fluoro time: 8.3 min PROCEDURE DETAILS: [...] wires, the catheter was exchanged for a 7-[place] vascular sheath. An SVC venogram was performe [...] okay for use. 2017-04-10 PROCEDURES PERFORMED: Isabell L and 12:02:35-00:00 1. Exchange of right [...] Total sedation time was 30 minutes. DAP :[id number] mgy-cm Fluoro time: 8.3 min PROCEDURE DETAILS: [...] wires, the catheter was exchanged for a 7-[place] vascular sheath. An SVC venogram was performe [...] Total sedation time was 30 minutes. DAP :[id number] mgy-cm Fluoro time: 8.3 min PROCEDURE DETAILS: [...] wires, the catheter was exchanged for a 7-[place] vascular sheath. An SVC venogram was performe [...] Total sedation time was 30 minutes. DAP :[id number] mgy-cm Fluoro time: 8.3 min PROCEDURE DETAILS: [...] wires, the catheter was exchanged for a 7-[place] vascular sheath. An SVC venogram was performe [...] Total sedation time was 30 minutes. DAP :[id number] mgy-cm Fluoro time: 8.3 min PROCEDURE DETAILS: [...] wires, the catheter was exchanged for a 7-[place] vascular sheath. An SVC venogram was performe [...] okay for use. 2017-04-10 PROCEDURES PERFORMED: CARMINA Isabell Araujo and 11:13:30-00:00 1. Exchange of right [...] Total sedation time was 30 minutes. DAP :[id number] mgy-cm Fluoro time: 8.3 min PROCEDURE DETAILS: [...] wires, the catheter was exchanged for a 7-[place] vascular sheath. An SVC venogram was performe [...] Total sedation time was 30 minutes. DAP :[id number] mgy-cm Fluoro time: 8.3 min PROCEDURE DETAILS: [...] wires, the catheter was exchanged for a 7-[place] vascular sheath. An SVC venogram was performe [...] Total sedation time was 30 minutes. DAP :[id number] mgy-cm Fluoro time: 8.3 min PROCEDURE DETAILS: [...] wires, the catheter was exchanged for a 7-[place] vascular sheath. An SVC venogram was performe [...] use. 2017-04-10 PROCEDURES PERFORMED: Isabell Araujo and 11:13:10-00:00 1. Exchange of right [...] Total sedation time was 30 minutes. DAP :[id number] mgy-cm Fluoro time: 8.3 min PROCEDURE DETAILS: [...] wires, the catheter was exchanged for a 7-[place] vascular sheath. An SVC venogram was performe [...] Total sedation time was 30 minutes. DAP :[id number] mgy-cm Fluoro time: 8.3 min PROCEDURE DETAILS: [...] wires, the catheter was exchanged for a 7-[place] vascular sheath. An SVC venogram was performe [...] Total sedation time was 30 minutes. DAP :[id number] mgy-cm Fluoro time: 8.3 min PROCEDURE DETAILS: [...] wires, the catheter was exchanged for a 7-[place] vascular sheath. An SVC venogram was performe [...] CLINICAL HISTORY: - dialysis catheter malfunctio ramesh [facility] 17:46:48-00:00 AGE: 51 years GENDER: Male TECHNIQUE: [...] CLINICAL HISTORY: - dialysis catheter malfunctio ramesh [facility] 17:46:48-00:00 AGE: 51 years GENDER: Male TECHNIQUE: [...] CLINICAL HISTORY: - dialysis catheter malfunctio ramesh [facility] 17:46:48-00:00 AGE: 51 years GENDER: Male TECHNIQUE: [...] tip in the SVC. 2017-03-12 PROCEDURES PERFORMED: Sugar L and 12:45:10-00:00 1. Placement of tunnelled [...] was sequentially dilated, ultimately with an 18 [place] peel-away sheath. Th e wire and dilator [...] is okay for use. 2017-03-12 PROCEDURES PERFORMED: Sugar L and 12:45:10-00:00 1. Placement of tunnelled [...] was sequentially dilated, ultimately with an 18 [place] peel-away sheath. Th e wire and dilator [...] is okay for use. 2017-03-12 PROCEDURES PERFORMED: Sugar L and 12:45:10-00:00 1. Placement of tunnelled [...] was sequentially dilated, ultimately with an 18 [place] peel-away sheath. Th e wire and dilator [...] bony abnormality. IMPRESSION: No acute abnormality SL: [id number] 2017-03-11 EXAM: XR CHEST 1 VIEW [facility] Sugar L and 08:45:00-00:00 DATE: 03/11/2017 8:41 AM CDT INDICATION: renal failure - eval COMPARISON: 11/24/2013 TECHNIQUE: Frontal chest radiograph FINDINGS: The lungs are clear. The cardiomediastinal silhouette is normal. There is no acute bony abnormality. IMPRESSION: No acute abnormality SL: [id number] 2017-03-11 EXAM: XR CHEST 1 VIEW Isabell Araujo and 08:45:00-00:00 DATE: 03/11/2017 8:41 AM CDT INDICATION: renal failure - eval COMPARISON: 11/24/2013 TECHNIQUE: Frontal chest radiograph FINDINGS: The lungs are clear. The cardiomediastinal silhouette is normal. There is no acute bony abnormality. IMPRESSION: No acute abnormality SL: [id number] 2017-03-10 EXAM: [facility] 20:38:23-00:00 Renal ultrasound. CLINICAL HX: Kidney [...] clinically for medical renal disease. 2017-03-10 EXAM: [facility] 20:38:23-00:00 Renal ultrasound. CLINICAL HX: Kidney [...] clinically for medical renal disease. 2017-03-10 EXAM: [facility] 20:38:23-00:00 Renal ultrasound. CLINICAL HX: Kidney [...] Esophagus barium swallow function video ( Rad) [facility] 10:42:33-00:00 Fluoro time: 4.1 min FINDINGS: Fluoroscopic [...] Esophagus barium swallow function video ( Rad) [facility] 10:42:33-00:00 Fluoro time: 4.1 min FINDINGS: Fluoroscopic [...] Esophagus barium swallow function video ( Rad) [facility] 10:42:33-00:00 Fluoro time: 4.1 min FINDINGS: Fluoroscopic imagi ng was provided for the speech pathologist to perform a modified barium swallow study. The patient was allowed to ingest foods containing barium and lateral imaging of the pharynx and esophagus was performed. IMPRESSION: Fluoroscopic seven ging provided for modified barium swallow study. Please see speech pathologist report for findings. 2013-11-24 Single view abdomen. [facility] 22:48:45-00:00 INDICATION: Tube change. COMPARISON: Yesterday. IMPRESSION: There appears to be a nasoga stric tube with tip projecting over the left upper quadrant in the expected region of the stomach. 2013-11-24 Single view abdomen. [facility] 22:48:45-00:00 INDICATION: Tube change. COMPARISON: Yesterday. IMPRESSION: There appears to be a nasoga stric tube with tip projecting over the left upper quadrant in the expected region of the stomach. 2013-11-24 Single view abdomen. [facility] 22:48:45-00:00 INDICATION: Tube change. COMPARISON: Yesterday. IMPRESSION: There appears to be a nasoga stric tube with tip projecting over the left upper quadrant in the expected region of the stomach. 2013-11-24 Single view chest. [facility]y 04:14:30-00:00 INDICATION: Cough and fever. COMPARISON: November 22, 2013. FINDINGS: New nasogastric tube with ti p inferior to the level of exam. Cardiac silhouette is within normal limits. Mild pulmonary vascular congestion is again seen. No pneumothorax, lobar consolidation, or pleural effusion. Unremarkable osseous structures. IMPRESSION: Stable mild pulmonary vascular congestion. 2013-11-24 Single view chest. [facility] 04:14:30-00:00 INDICATION: Cough and fever. COMPARISON: November 22, 2013. FINDINGS: New nasogastric tube with ti p inferior to the level of exam. Cardiac silhouette is within normal limits. Mild pulmonary vascular congestion is again seen. No pneumothorax, lobar consolidation, or pleural effusion. Unremarkable osseous structures. IMPRESSION: Stable mild pulmonary vascular congestion. 2013-11-24 Single view chest. [facility] 04:14:30-00:00 INDICATION: Cough and fever. COMPARISON: November 22, 2013. FINDINGS: New nasogastric tube with ti p inferior to the level of exam. Cardiac silhouette is within normal limits. Mild pulmonary vascular congestion is again seen. No pneumothorax, lobar consolidation, or pleural effusion. Unremarkable osseous structures. IMPRESSION: Stable mild pulmonary vascular congestion. 2013-11-23 CLINICAL HISTORY:Bleeding. [facility] 19:29:02-00:00 Sex: M. : 1965. TECHNIQUE: Axial scans were performed through the head with axial dataset following bolus intravenous injection of 50 cc of Visipaque including multiplanar computer-generated MIP reformations. 3-D imagi ng was unable to be performed. Total Dose(DLP): 2016 mGy-cm. CTA brain: Large right-sided hemorrhage s with edema and mass effect noted on the switch engineer series. Visualization is limited bec ause of [...] No hemodynamically significant lesion. 2013-11-23 CLINICAL HISTORY:Bleeding. [facility] 19:29:02-00:00 Sex: M. : 1965. TECHNIQUE: Axial scans were performed through the head with axial dataset following bolus intravenous injection of 50 cc of Visipaque including multiplanar computer-generated MIP reformations. 3-D imagi ng was unable to be performed. Total Dose(DLP): 2016 mGy-cm. CTA brain: Large right-sided hemorrhage s with edema and mass effect noted on the switch engineer series. Visualization is limited bec ause of [...] No hemodynamically significant lesion. 2013-11-23 CLINICAL HISTORY:Bleeding. [facility] 19:29:02-00:00 Sex: M. : 1965. TECHNIQUE: Axial scans were performed through the head with axial dataset following bolus intravenous injection of 50 cc of Visipaque including multiplanar computer-generated MIP reformations. 3-D imagi ng was unable to be performed. Total Dose(DLP): 2016 mGy-cm. CTA brain: Large right-sided hemorrhage s with edema and mass effect noted on the switch engineer series. Visualization is limited bec ause of [...] significant lesion. 2013-11-23 Exam: Abdomen one view [facility] 13:23:26-00:00 History: Tube placement Comparison Study: [...] position . 2013-11-23 Exam: Abdomen one view [facility] 13:23:26-00:00 History: Tube placement Comparison Study: [...] position . 2013-11-23 Exam: Abdomen one view [facility] 13:23:26-00:00 History: Tube placement Comparison Study: [...] s atisfactory position . 2013-11-22 CLINICAL HISTORY:Bleeding. [facility] 20:32:41-00:00 Sex: M. : 1965. TECHNIQUE: Axial [...] probable small intraventricular rupture. 2013-11-22 CLINICAL HISTORY:Bleeding. [facility] 20:32:41-00:00 Sex: M. : 1965. TECHNIQUE: Axial [...] probable small intraventricular rupture. 2013-11-22 CLINICAL HISTORY:Bleeding. [facility] 20:32:41-00:00 Sex: M. : 1965. TECHNIQUE: Axial [...] edema and probable small intraventricular rupture. 2013-11-22 [facility] 20:15:09-:00 CLINICAL HISTORY: Renal insufficiency. Sex: M. : [...] . IMPRESSION: 1. Negative renal ultrasound. 2013-11-22 [facility] 20:15:09-00:00 CLINICAL HISTORY: Renal insufficiency. Sex: M. [...] . IMPRESSION: 1. Negative renal ultrasound. 2013-11-22 [facility] 20:15:09-00:00 CLINICAL HISTORY: Renal insufficiency. Sex: M. [...] Negative renal ultrasound. 2013-11-22 STUDY: Chest 1view [facility] 13:14:52-00:00 COMPARISON: Chest, single view dated [...] No focal consolidation seen. 2013-11-22 STUDY: Chest 1view [facility] 13:14:52-00:00 COMPARISON: Chest, single view dated [...] No focal consolidation seen. 2013-11-22 STUDY: Chest 1view [facility] 13:14:52-00:00 COMPARISON: Chest, single view dated [...] 2013-11-22 CT of the head without contrast [facility] 12:53:43-00:00 Comparison:None Exam Dose Length Product: 1002 [...] 2013-11-22 CT of the head without contrast [facility] 12:53:43-00:00 Comparison:None Exam Dose Length Product: 1002 [...] 2013-11-22 CT of the head without contrast [facility] 12:53:43-00:00 Comparison:None Exam Dose Length Product: 1002 [...]
[2023-05-10 20:13] LABS: SARS-CoV-2 Antigen Rapid Res Negative (Negative)
[2023-05-10 20:13] LABS: Absolute Lymphocytes (CBC) 0.3 K/uL (0.7-4.9); Hematocrit 37.8 % (39.6-49.0); Lymphocytes % 6.1 % (15.3-44.8); MCV 95.5 fL (80-100); Platelets 119 thou/uL (152-406); RBC Red Blood Cell Count 3.96 M/uL (4.33-5.43)
[2023-05-10 20:24] LABS: Bilirubin Total 0.4 mg/dL (0.2-1.0); Potassium 3.3 mEq/L (3.5-5.1); Protein, Total 7.1 g/dL (6.4-8.2); Troponin High Sensitivity 20.1 pg/mL (<58.9)
--- NOTE | 2023-05-10 20:50 | RAD REPORT ---
EXAM DESCRIPTION: RADChest Single View05/10/2023 8:20 pm CLINICAL HISTORY: FEVER COMPARISON: Chest Single View dated 03/31/2023; Chest Single View dated 03/26/2023; Chest Single View d ated 11/19/2022; Chest Single View dated 08/05/2022 TECHNIQUE: Portable AP view of the chest. FINDINGS: The lungs are clear. No pneumothorax or effusion. The cardiomediastinal contours are unrem arkable. Left subclavian stent again seen. IMPRESSION: No acute cardiopulmonary process.
--- NOTE | 2023-05-10 20:50 | RAD REPORT ---
EXAM DESCRIPTION: RAD - Knee Left 2 View - 05/10/2023 8:20 pm CLINICAL HISTORY: fall, pain COMPARISON: No comparisons TECHNIQUE: Left knee, 3 views. FINDINGS: No fracture, dislocation or periosteal reaction.No joint effusion seen. Mild tricompartmen anita osteoarthritic changes. No soft tissue abnormality. Clinical concerns for internal derangement or occult bony injury could be further assessed with MR im aging. IMPRESSION: No acute osseous abnormality. Mild tricompartmental osteoarthritic changes.
[2023-05-11] MEDS ORDERED: CEFTRIAXONE 1000 MG/VIAL ONE (00:02)
[2023-05-11] MEDS ORDERED: VANCOMYCIN 1 GM/VIAL ONE (00:02)
[2023-05-11] MEDS ORDERED: NA CHLORIDE 0.9% 250 ML ONE (00:03)
[2023-05-11] MEDS ORDERED: VANCOMYCIN 500 MG/VIAL ONE (00:03)
[2023-05-11 00:09] LABS: Specific Gravity 1.007 (1.005-1.030); Urine Bacteria None Seen /HPF (<20); Urine Bilirubin NEGATIVE (Negative); Urine Blood 3+ (OVER) (Negative); Urine Clarity Turbid (Clear); Urine Color Light-Yellow (Yellow); Urine Crystals Unidentified Few /HPF (None Seen); Urine Glucose TRACE (Negative); Urine Protein 1+ (Negative); Urine Urobilinogen Normal (Normal); Urine pH 6.5 (5.0-7.0)
--- NOTE | 2023-05-11 00:25 | EDPHYS ---
Physician Documentation [facility] Name: Ben Otto Age: 57 yrs Sex: Male : 1965 Arrival Date: 05/10/2023 Time: 19:01 Bed 14 Private MD: ED Physician Nina Mercado HPI: 05/10 19:17 This 57 yrs old Male presents to ER via EMS with complaints of Fall Injury. sd2 19:17 57 yo M presents with CC of fall injury via EMS. Reports he tripped and fell in his sd2 room at home causing his left leg to bend backward underneath him and impacting onto his left knee. He denies any head injury or LOC. He was found to have a temp of 103.3F on arrival and does note that he has had chills and some lightheadedness at home for the past 2 days but denies any URI symptoms, GI symptoms or other notable symptoms. He is on HD and last dialysis was completed yesterday. States he still makes urine multiple times throughout the day.. Historical: - Allergies: 19:13 No Known Allergies; me1 - Home Meds: 19:13 metoprolol [Active]; nexium [Active]; renvela [Active]; me1 - Immunization history:: Adult Immunizations up to date. - Social history:: Smoking status: Patient denies any tobacco usage or history of. ROS: 19:17 Eyes: Negative for injury, pain, redness, and discharge, Cardiovascular: Negative for sd2 chest pain, palpitations, and edema, Respiratory: Negative for shortness of breath, cough, wheezing. Abdomen/GI: Negative for abdominal pain, nausea, vomiting, diarrhea. : Negative for dysuria, frequency or hematuria. MS/Extremity: Negative for injury and deformity, Skin: Negative for injury, rash, and discoloration, Neuro: Negative for headache, numbness and tingling. 19:17 Constitutional: Positive for chills, fever, Negative for poor PO intake, weight loss. Exam: 19:17 Constitutional: This is a well developed, well nourished patient who is awake, alert, sd2 and in no acute distress. Head/Face: Normocephalic, atraumatic. Eyes: EOMI, normal conjunctiva bilaterally Chest/axilla: Normal chest wall appearance and motion. Nontender with no deformity. Cardiovascular: Regular rate and rhythm with a normal S1 and S2. No gallops, murmurs, or rubs. 2+ distal pulses. Respiratory: Lungs have equal breath sounds bilaterally, clear to auscultation and percussion. No rales, rhonchi or wheezes noted. No increased work of breathing, no retractions or nasal flaring. Abdomen/GI: Soft, non-tender, with normal bowel sounds. No guarding or rebound. No evidence of tenderness throughout. Skin: Warm, dry with normal turgor. Normal color with no rashes, no lesions, and no evidence of cellulitis. MS/ Extremity: Pulses equal, no cyanosis. Neurovascular intact. Full, normal range of motion. Brace in place to LLE due to prior CVA. Mild bruising noted to left anterior knee with stable joint and FROM intact. No varus or valgus laxity. Psych: Awake, alert, with orientation to person, place and time. Behavior, mood, and affect are within normal limits. 21:18 ECG was reviewed by the Attending Physician. NSR, rate 75, no STEMI criteria sd2 Vital Signs: 19:10 BP 128 / 77; Pulse 83; Resp 17; Temp 103.3(O); Pulse Ox 98% on R/A; Weight 81.65 kg; me1 Height 5 ft. 7 in. ; Pain 7/10; 20:15 BP 129 / 75; Pulse 81; Resp 18; Pulse Ox 97% on R/A; kd3 20:26 BP 105 / 62; Pulse 73; Resp 18; Temp 102.2(O); Pulse Ox 99% on R/A; kd3 21:22 BP 104 / 69; Pulse 68; Resp 19; Temp 99.3(O); Pulse Ox 98% on R/A; kd3 22:01 Pulse 60; Resp 19; Pulse Ox 97% on R/A; kd3 22:04 BP 109 / 69; kd3 22:40 BP 106 / 66; Pulse 57; Resp 19; Pulse Ox 99% on R/A; kd3 05/11 01:24 BP 108 / 72; Pulse 67; Resp 19; Pulse Ox 98% on R/A; kd3 05/10 19:10 Body Mass Index 28.19 (81.65 kg, 170.18 cm) me1 05/10 19:10 Pain Scale: Adult me1 MDM: 05/10 19:15 Patient medically screened. sd2 19:17 Differential diagnosis: fracture, contusion, sprain, strain, ligamentous injury, viral sd2 URI, PNA, UTI among others. Data reviewed: vital signs, nurses notes, EMS record, lab test result(s), EKG, radiologic studies. Historians other than the Patient: EMS: provides initial report. Care significantly affected by the following chronic conditions: ESRD. Counseling: I had a detailed discussion with the patient and/or guardian regarding: the historical points, exam findings, and any diagnostic results supporting the discharge/admit diagnosis, lab results. 05/11 00:22 Consideration of Admission/Observation Patient was admitted/placed on observation. sd2 Management of patient was discussed with the following: Primary Care Provider: Dr. Mandel. I considered the following discharge prescriptions or medication management in the emergency department Medications were administered in the Emergency Department. See MAR. ED course: Labs with no clear source of infection but elevated procalcitonin consistent with bacterial infection. Fever improved and VSS. Will admit for further management. Blood cultures sent. . 05/10 19:16 Order name: CBC with Diff; Complete Time: 20:15 sd2 05/10 19:16 Order name: CMP; Complete Time: 20:52 sd2 05/10 19:16 Order name: Procalcitonin; Complete Time: 21:15 sd2 05/10 19:16 Order name: Troponin High Sensitivity; Complete Time: 20:52 sd2 05/10 19:16 Order name: Urinalysis w/ reflexes; Complete Time: 00:16 sd2 05/10 19:16 Order name: SARS RAPID; Complete Time: 20:15 sd2 05/10 19:16 Order name: Flu; Complete Time: 00:24 sd2 05/10 23:03 Order name: Blood Culture Adult (2) sd2 05/11 00:32 Order name: Basic Metabolic Panel EDMS 05/11 00:32 Order name: Basic Metabolic Panel EDMS 05/11 00:32 Order name: CBC with Automated Diff EDMS 05/11 00:32 Order name: CBC with Automated Diff EDMS 05/10 19:16 Order name: XRAY Chest (1 view); Complete Time: 20:52 sd2 05/10 19:16 Order name: XRAY Knee LEFT 2 view; Complete Time: 20:52 sd2 05/11 00:32 Order name: Heart Healthy EDMS 05/10 19:16 Order name: EKG - Nurse/Tech; Complete Time: 20:06 sd2 Administered Medications: 05/10 19:25 Drug: Acetaminophen PO 1000 mg Route: PO; kd3 05/11 01:25 Follow up: Response: No adverse reaction; Temperature is decreased kd3 00:09 Drug: Rocephin IV 1 grams Route: IV; Rate: bolus; Site: right antecubital; kd3 01:25 Follow up: IV Status: Completed infusion kd3 00:09 Drug: vancoMYCIN IVPB 15 mg/kg Route: IVPB; Site: right antecubital; kd3 01:25 Follow up: IV Status: Infusion continued kd3 Disposition Summary: 05/11/23 00:24 Hospitalization Ordered Hospitalization Status: Inpatient Admission sd2 Provider: Rudi Mandel sd2 [facility] sd2 Condition: Stable sd2 Problem: new sd2 Symptoms: have improved sd2 Bed/Room Type: [place] sd2 Room Assignment: 209(05/11/23 01:15) eb1 Diagnosis - Acute Febrile Illness sd2 - Mechanical fall from standing sd2 - Left Knee Pain sd2 - Elevated Procalcitonin sd2 Forms: - Medication Reconciliation Form sd2 - SBAR form sd2 - Leadership Thank You Letter sd2 Signatures: Dispatcher [employer] EDHI Vikki Huff RN RN eb1 Machelle Simmons RN RN kd3 Nina Mercado MD MD sd2 Rosanne German RN RN me1 Corrections: (The following items were deleted from the chart) 00:11 05/10 23:02 Straight Cath ordered. sd2 kd3 05/11 01:15 00:24 sd2 eb1
--- NOTE | 2023-05-11 00:25 | ER ---
Nurse's Notes [facility] Name: Ben Otto Age: 57 yrs Sex: Male : 1965 Arrival Date: 05/10/2023 Time: 19:01 Bed 14 Private MD: Diagnosis: Acute Febrile Illness;Mechanical fall from standing;Left Knee Pain;Elevated Procalcitonin Presentation: 05/10 19:10 Chief complaint: EMS states: Called to house as patient tripped and fell. left knee me1 pain and lower back pain. Reports he has had chills lately. Coronavirus screen: Vaccine status: Patient reports receiving the 2nd dose of the covid vaccine. chills, fever. Ebola Screen: No symptoms or risks identified at this time. Initial Sepsis Screen: Does the patient meet any 2 criteria? Temp <36.0*C (96.8*F)) or > 38.3*C (100.9*F). No. Patient's initial sepsis screen is negative. Does the patient have a suspected source of infection? No. Patient's initial sepsis screen is negative. Risk Assessment: Do you want to hurt yourself or someone else? Patient reports no desire to harm self or others. Onset of symptoms was May 10, 2023. 19:10 Method Of Arrival: EMS: [facility] [place] 19:10 Acuity: JEREMY 2 me1 Historical: - Allergies: 19:13 No Known Allergies; me1 - Home Meds: 19:13 metoprolol [Active]; nexium [Active]; renvela [Active]; me1 - Immunization history:: Adult Immunizations up to date. - Social history:: Smoking status: Patient denies any tobacco usage or history of. Screenin:21 [facility] ED Fall Risk Assessment (Adult) History of falling in the last 3 months, kd3 including since admission Yes- single mechanical fall (1 pt) Confusion or Disorientation No (0 pts) Intoxicated or Sedated No (0 pts) Impaired Gait Yes (1 pt) Mobility Assist Device Used Yes (1 pt) Altered Elimination No (0 pt) Score/Fall Risk Level 3 or more points = High Risk Maintained a safe environment, Educated pt \T\ family on fall prevention, incl call for assistance when getting out of bed. Abuse screen: Denies threats or abuse. Denies injuries from another. Nutritional screening: No deficits noted. Tuberculosis screening: No symptoms or risk factors identified. Assessment: 21:20 General: Appears in no apparent distress. Behavior is calm, cooperative. Pain: kd3 Complains of pain in right leg and left leg. Neuro: Level of Consciousness is awake, alert, obeys commands, Oriented to person, place, time, situation. Cardiovascular: Patient's skin is warm and dry. Respiratory: Airway is patent Trachea midline Respiratory effort is even, unlabored, Respiratory pattern is regular, symmetrical. 05/11 01:00 General: Appears in no apparent distress. Behavior is calm, cooperative. Neuro: Level kd3 of Consciousness is awake, alert, obeys commands, Oriented to person, place, time, situation. Cardiovascular: Patient's skin is warm and dry. Respiratory: Airway is patent Trachea midline Respiratory effort is even, unlabored, Respiratory pattern is regular, symmetrical. Vital Signs: 05/10 19:10 BP 128 / 77; Pulse 83; Resp 17; Temp 103.3(O); Pulse Ox 98% on R/A; Weight 81.65 kg; me1 Height 5 ft. 7 in. ; Pain 7/10; 20:15 BP 129 / 75; Pulse 81; Resp 18; Pulse Ox 97% on R/A; kd3 20:26 BP 105 / 62; Pulse 73; Resp 18; Temp 102.2(O); Pulse Ox 99% on R/A; kd3 21:22 BP 104 / 69; Pulse 68; Resp 19; Temp 99.3(O); Pulse Ox 98% on R/A; kd3 22:01 Pulse 60; Resp 19; Pulse Ox 97% on R/A; kd3 22:04 BP 109 / 69; kd3 22:40 BP 106 / 66; Pulse 57; Resp 19; Pulse Ox 99% on R/A; kd3 05/11 01:24 BP 108 / 72; Pulse 67; Resp 19; Pulse Ox 98% on R/A; kd3 05/10 19:10 Body Mass Index 28.19 (81.65 kg, 170.18 cm) [facility] [place] 05/10 19:10 Pain Scale: Adult [facility] [place] ED Course: 05/10 19:09 Patient arrived in ED. or1 19:13 Triage completed. or1 19:13 Arm band placed on Patient placed in an exam room. me1 19:15 Nina Mercado MD is Attending Physician. sd2 19:17 Machelle Simmons, RN is Primary Nurse. kd3 19:25 Flu Sent. kd3 19:25 SARS RAPID Sent. kd3 19:45 SARS RAPID Sent. kd3 19:45 Flu Sent. kd3 19:45 Troponin High Sensitivity Sent. kd3 19:45 Procalcitonin Sent. kd3 19:45 CMP Sent. kd3 19:45 CBC with Diff Sent. kd3 19:45 Inserted saline lock: 22 gauge in right antecubital area, using aseptic technique. kd3 Blood collected. 20:06 EKG done, by ED staff, reviewed by Nina Mercado MD. wm 20:21 XRAY Chest (1 view) In Process Unspecified. EDMS 20:21 XRAY Knee LEFT 2 view In Process Unspecified. EDMS 21:21 Patient has correct armband on for positive identification. Provided Education on: fall kd3 education . 23:49 Blood Culture Adult (2) Sent. kd3 05/11 00:00 Urinalysis w/ reflexes Sent. wm 00:00 Urine collected: clean catch specimen, cloudy. wm 00:23 Rudi Mandel MD is Hospitalizing Provider. sd2 00:50 Inserted saline lock: 20 gauge in right antecubital area, using aseptic technique. IV kd3 discontinued, intact, bleeding controlled, No redness/swelling at site. Pressure dressing applied. 01:00 No provider procedures requiring assistance completed. kd3 Administered Medications: 05/10 19:25 Drug: Acetaminophen PO 1000 mg Route: PO; kd3 05/11 01:25 Follow up: Response: No adverse reaction; Temperature is decreased kd3 00:09 Drug: Rocephin IV 1 grams Route: IV; Rate: bolus; Site: right antecubital; kd3 01:25 Follow up: IV Status: Completed infusion kd3 00:09 Drug: vancoMYCIN IVPB 15 mg/kg Route: IVPB; Site: right antecubital; kd3 01:25 Follow up: IV Status: Infusion continued kd3 Medication: 05/10 21:21 VIS not applicable for this client. kd3 Outcome: 05/11 00:24 Decision to Hospitalize by Provider. sd2 01:24 Admitted to Med/surg accompanied by tech. kd3 01:24 Condition: stable 01:24 Discharge instructions given to patient, Instructed on the need for admit, Demonstrated understanding of instructions. 01:25 Patient left the ED. kd3 Signatures: Dispatcher [employer] Stacey Oleary Kyli RN RN kd3 Nina Mercado MD MD sd2 Rosanne German RN RN me1
[2023-05-11] MEDS ORDERED: ONDANSETRON 4 MG/2 ML VIAL IV PRN (00:28)
[2023-05-11 01:39] VITALS: BMI 30.5
--- NOTE | 2023-05-11 13:28 | P.SSS ---
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 The patient fell at home and twisted his knee. Was brought to the ER. Was found to have a fever of 103. U/a was positive for leukocytes. The patient did complaint of some chills since Friday. This morning he is feeling better. No knee pain. His vitals are stable. Allergies No Known Allergies Allergy (Unverified 11/19/22 21:39) Home Medications: Esomeprazole Mag Trihydrate [Nexium] 40 mg PO DAILY 05/11/23 Metoprolol Succinate [Toprol Xl*] 50 mg PO DAILY 05/11/23 Sevelamer Carbonate [Renvela*] 800 mg PO TID 05/11/23 Smz./Tmp. [Bactrim Ds 800 MG/160 MG] 1 tab PO BID 5 Days #10 tab 05/11/23 - Past Medical/Surgical History Has patient received pneumonia vaccine in the past: No Diabetic: No -: KIdney Failure -: CVA-2013 -: Placement HD Access left upper arm - Family History Father -: Diabetes Mother -: Diabetes - Social History Smoking Status: Never smoker Alcohol use: No CD- Drugs: No Caffeine use: Yes Place of Residence: Home Review of Systems 10-point ROS is otherwise unremarkable Physical Examination - Vital Signs Temperature: 97.4 F Blood Pressure: 120/74 Pulse: 59 Respirations: 16 Pulse Ox (%): 98 - Physical Exam General: Alert, In no apparent distress HEENT: Atraumatic, PERRLA, Mucous membr. moist/pink, EOMI, Sclerae nonicteric Neck: Supple, 2+ carotid pulse no bruit, No LAD, Without JVD or thyroid abnormality Respiratory: Clear to auscultation bilaterally, Normal air movement Cardiovascular: Regular rate/rhythm, Normal S1 S2 Gastrointestinal: Normal bowel sounds, No tenderness Musculoskeletal: No tenderness Integumentary: No rashes Neurological: Normal gait, Normal speech, Normal strength at 5/5 x4 extr, Normal tone, Normal affect Lymphatics: No axilla or inguinal lymphadenopathy - Studies Laboratory Data (last 24 hrs) 05/10/23 05/10/23 19:41 19:41 WBC 5.20 Hgb 12.6 L Hct 37.8 L Plt Count 119 L Sodium 131 L Potassium 3.3 L BUN 28 H Creatinine 7.74 H Glucose 113 H Total Bilirubin 0.4 AST 25 ALT 19 Alkaline Phosphatase 55 Microbiology Data (last 24 hrs): 05/10/23 23:30 Blood - Blood Anaerobic Blood Culture - Final 05/10/23 23:37 Blood - Blood Anaerobic Blood Culture - Final 05/10/23 19:25 Nasopharnyx Influenza Type A Antigen Screen - Final 05/10/23 19:25 Nasopharnyx Influenza Type B Antigen Screen - Final - Diagnosis (Problem(s)) (1) Urinary tract infection Current Visit: Yes Status: Acute Plan: patient has no fevers and chills. He has a normal wbc and cultures. Will send him home on bactrim Qualifiers: Urinary tract infection type: site unspecified Hematuria presence: without hematuria Qualified Code(s): N39.0 - Urinary tract infection, site not specified (2) Atrial fibrillation with RVR Current Visit: No Status: Chronic Plan: stabele heart rate on metoprolol (3) ESRD (end stage renal disease) Current Visit: No Status: Chronic Plan: Have discussed with Dr. caceres. Normally has dialysis MWF (4) HTN (hypertension) Current Visit: No Status: Chronic Plan: restart home metoprolol Qualifiers: Hypertension type: primary hypertension Qualified Code(s): I10 - Essential (primary) hypertension - Disposition Disposition: ROUTINE DISCHARGE Condition: GOOD Diet: Renal Activity: Ad yessy Physician Review: Patient Assessed, Agree with Above Assessment and Plan Critical Care: No Time Spent Managing Pts Care (In Minutes): 40
--- NOTE | 2023-05-11 14:26 | P.CNS ---
Date of Consult: 05/11/23 Primary Care Provider: Ministerio Chief Complaint: UTI History of Present Illness: A 57 Y. woman with PMHx of ESRD on HD MWF via lt upper Arm AVF , Afib , CHF , and HTN Pt sent fe on the knee, presented to ER , had Temp of 103, denied sick contact, diarrhea, recent travel , UA +ve ROS Head and Neck: No red eye. No ear pain. GI: denied nausea, voimiting or diarrhea : No polyuria. No dysuria. No hematuria. Respiratory: denied shortness of breath.or cough Cardiovascular:tachycardia , denied chest pain Endocrine: No polydipsia. Skin: No rash. Neuro: Has weakness. Wobbly gait. Musculoskeletal: Knee pain Physical exam General: Awake, NAD HEENT: Atraumatic, Normocephalic Neck: Supple, no elevated JVD Respiratory: CTAN Cardiovascular: No rubs, No murmurs Gastrointestinal: Soft and benign, Non-distended Musculoskeletal: No clubbing Ext: no edma A/P # ESRD on HD MWF HD today then MWF Renal diet Monitor renal panel # Afib rate controlled now ont metoprolol #fever likey due to UTI cont ABx F/U cultures # Anemia Monitor H/H # Renal osteodystrophy Monitor Ca & Phos # DM2 Mngt per primary team Allergies No Known Allergies Allergy (Unverified 11/19/22 21:39) Home Medications: Esomeprazole Mag Trihydrate [Nexium] 40 mg PO DAILY 05/11/23 Metoprolol Succinate [Toprol Xl*] 50 mg PO DAILY 05/11/23 Sevelamer Carbonate [Renvela*] 800 mg PO TID 05/11/23 Smz./Tmp. [Bactrim Ds 800 MG/160 MG] 1 tab PO BID 5 Days #10 tab 05/11/23 - Past Medical/Surgical History Diabetic: No -: KIdney Failure -: CVA-2013 -: Placement HD Access left upper arm - Family History Father Medical History: Diabetes Mother Medical History: Diabetes - Social History Smoking Status: Unknown if ever smoked Alcohol use: No CD- Drugs: No Caffeine use: Yes Place of Residence: Home Physical Examination Temp Pulse Resp BP Pulse Ox 97.4 F 59 16 120/74 98 05/11/23 13:31 05/11/23 13:31 05/11/23 13:31 05/11/23 13:31 05/11/23 13:31 Laboratory Data (last 24 hrs) 05/10/23 05/10/23 19:41 19:41 WBC 5.20 Hgb 12.6 L Hct 37.8 L Plt Count 119 L Sodium 131 L Potassium 3.3 L BUN 28 H Creatinine 7.74 H Glucose 113 H Total Bilirubin 0.4 AST 25 ALT 19 Alkaline Phosphatase 55
[2023-05-11] MEDS: ACETAMINOPHEN 500 MG TAB PO PRN (14:58)
[2023-05-11] MEDS: NITROFURAN MACRO 100 MG CAP PO SCH (16:57)
[2023-05-11] MEDS: PANTOPRAZOLE 40MG TABLET PO SCH (16:57)
[2023-05-11] MEDS: SEVELAMER CARBONATE 800 MG TABLET PO SCH (16:57)
[2023-05-12 03:54] LABS: Absolute Lymphocytes (CBC) 0.6 K/uL (0.7-4.9); Hematocrit 36.8 % (39.6-49.0); Lymphocytes % 16.2 % (15.3-44.8); MCV 94.2 fL (80-100); MPV 9.3 fL (7.6-11.3); Platelets 111 thou/uL (152-406); RBC Red Blood Cell Count 3.91 M/uL (4.33-5.43)
[2023-05-12 04:29] LABS: Potassium 3.7 mEq/L (3.5-5.1)
[2023-05-12 08:58] VITALS: O2SAT 98
[2023-05-12] MEDS ORDERED: METOPROLOL XL 50 MG TAB PO SCH (09:00)
[2023-05-12] MEDS: NITROFURAN MACRO 100 MG CAP PO SCH (10:10)
[2023-05-12] MEDS: SEVELAMER CARBONATE 800 MG TABLET PO SCH ×2 (10:11→12:04)
[2023-05-12] MEDS: PANTOPRAZOLE 40MG TABLET PO SCH (10:11)
[2023-05-12] MEDS: ACETAMINOPHEN 500 MG TAB PO PRN (10:13)
--- NOTE | 2023-05-12 13:13 | EKG ---
Test Date: 2023-05-10 Test Time: 19:57:22 [place] Former: MEASUREMENT RESULTS: Intervals: Rate: 75 MA: 188 QRSD: 82 QT: 360 QTc: 402 Stanton: P: 90 MA: 188 QRS: 84 T: 53 INTERPRETIVE STATEMENTS: Normal sinus rhythm Normal ECG Compared to ECG 03/31/2023 13:41:49 Sinus bradycardia no longer present First degree AV block no longer present Electronically Signed On 05-12-23 13:10:19 CDT by Charles Tracy
--- NOTE | 2023-05-12 14:44 | P.PN ---
Subjective Date of Service: 05/12/23 Primary Care Provider: Ministerio Chief Complaint: UTI Subjective: Improving Patient was not feeling well and had dialysis order by Dr. Schmidt. Therefore his discharge was delayed. Review of Systems 10-point ROS is otherwise unremarkable Musculoskeletal: Neck Pain Physical Examination - Vital Signs Temperature: 97.4 F Blood Pressure: 114/70 Pulse: 67 Respirations: 16 Pulse Ox (%): 99 - Physical Exam General: Alert, In no apparent distress HEENT: Atraumatic, PERRLA, EOMI Neck: Supple, JVD not distended Respiratory: Clear to auscultation bilaterally, Normal air movement Cardiovascular: Regular rate/rhythm, Normal S1 S2 Gastrointestinal: Normal bowel sounds, No tenderness Musculoskeletal: No tenderness Integumentary: No rashes Neurological: Normal speech, Normal tone, Normal affect Lymphatics: No axilla or inguinal lymphadenopathy - Studies Microbiology Data (last 24 hrs): 05/10/23 23:37 Blood - Blood Anaerobic Blood Culture - Final 05/10/23 23:30 Blood - Blood Anaerobic Blood Culture - Final Assessment And Plan - Current Problems (Diagnosis) (1) Urinary tract infection Current Visit: Yes Status: Acute Plan: patient has no fevers and chills. He has a normal wbc and cultures. Will send him home on bactrim Qualifiers: Urinary tract infection type: site unspecified Hematuria presence: without hematuria Qualified Code(s): N39.0 - Urinary tract infection, site not specified (2) Atrial fibrillation with RVR Current Visit: No Status: Chronic Plan: stabele heart rate on metoprolol (3) ESRD (end stage renal disease) Current Visit: No Status: Chronic Plan: Have discussed with Dr. schmidt. Normally has dialysis MWF (4) HTN (hypertension) Current Visit: No Status: Chronic Plan: restart home metoprolol Qualifiers: Hypertension type: primary hypertension Qualified Code(s): I10 - Essential (primary) hypertension Discharge Plan: Home Plan to discharge in: 24 Hours - Code Status/Comfort Care Code Status Assessed: No Physician Review: Patient Assessed, Agree with Above Assessment and Plan Critical Care: No Time Spent Managing PTS Care (In Minutes): 20
[2023-05-12 16:21] VITALS: BP 117/72; TEMP 97.1
--- NOTE | 2023-05-13 02:00 | PN ---
Date of Progress Note: 05/12/2023 Chief Complaint: End-stage renal disease, on hemodialysis Friday, Friday, Friday. Subjective: The patient is a 57-year-old man with history of end-stage renal disease, on hemodialysi s, atrial fibrillation, congestive heart failure, hypertension. He presented to the hospital because of high-grade fever. His temperature was up to 103. He denied diarrhea and recent travel. He amanda es urinary symptoms. Review of Systems: Denies fever, chills. Denies chest pain, palpitation. Denies abdominal pain. All other system revi ewed. The patient is feeling better today. Physical Examination: Lungs: Clear to auscultation bilaterally. Neck: Supple. No JVD. Abdomen: Soft, benign, nontender. Extremities: No edema. Impression And Plan: 1.End-stage renal disease. Dialysis ordered today with ultrafiltration. Monitor blood pressure dur ing dialysis. Adjust ultrafiltration goal to prevent antibiotic hypotension. 2.Atrial fibrillation, rate controlled on metoprolol. 3.Fever, likely due to urinary tract infection. Patient is on antibiotics. Followup culture. 4.Anemia. Continue to monitor H and H. 5.Renal osteodystrophy. Monitor calcium and phosphorus, diabetes mellitus, per Primary Team. EB/MODL Voice ID: [id number] Report ID: [id number]
== END 2023-05-12 15:33 | disposition home or self-care (01) ==
LOC: ER 19:01 → INTOOBSV 05-11 00:31 → ERHOLD 05-11 00:31 → 2ND 05-11 01:17
PROVIDERS: ADMIT Internal Medicine; ATTEND Internal Medicine
DX: N39.0 Urinary tract infection, site not specified (principal); I48.11 Longstanding persistent atrial fibrillation; I12.0 Hypertensive chronic kidney disease with stage 5 chronic kidney disease or end stage renal disease; I50.9 Heart failure, unspecified; N18.6 End stage renal disease; Z99.2 Dependence on renal dialysis; D63.1 Anemia in chronic kidney disease; E11.9 Type 2 diabetes mellitus without complications; R50.9 Fever, unspecified; N25.0 Renal osteodystrophy; M54.50 Low back pain, unspecified; M25.562 Pain in left knee; W01.0XXA Fall on same level from slipping, tripping and stumbling without subsequent striking against object, initial encounter; Y93.9 Activity, unspecified; Y92.019 Unspecified place in single-family (private) house as the place of occurrence of the external cause; Z20.822 Contact with and (suspected) exposure to COVID-19
CPT/HCPCS: 96365; 96368; 93005; 87040 ×2; 85025 ×2; 81001; 80048; 36415 ×2; 84484; 80053; 84145; 87804 ×2; 71045; 73560; 90935; 97161; 99285; 87811; J1644

== ENCOUNTER 2023-05-28 15:41 | Observation (INO) | payer OTHER ==
--- OUTSIDE RECORDS SUMMARY | 2023-05-28 16:08 | XMS REPORT | Continuity of Care Document ---
:1965 Author Organization [facility] t Address [address] [place] [address] [place] [id number] Care Team Providers Name Role Phone PCP, PATIENT DOES NOT HAVE A Primary Care Physician Unavaila STEFANY Medel Attending Clinician Unavailable German Del Rio Attending Clinician [phone] GERMAN DEL RIO Attending Clinician Unavailable REGAN MUKHERJEE Attending Clinician Unavailable BERONICA ZHOU Attending Clinician Unavailable Rosaline Brannon Attending Clinician ROBERTO PRATT Attending Clinician Unavailable Roberto Pratt MD Attending Clinician HOUSTON CHANG Attending Clinician Unavailable Houston Chang MD Attending Clinician Elidia Kat MD Attending Clinician [phone] Vtc-Lab Attending Clinician Unavailable Oxyacetylene Welder, Transplant Attending Clinician Unavailable Worker, Transplant Social Attending Clinician Unavailable Chase MORA, Owen Attending Clinician Renal, Transplant Class Attending Clinician Unavailable Jeromy Cannon Attending Clinician DR ELIUD MAY Attending Clinician Unavailable Sada Hurst Attending Clinician [phone] Romi Ritchie Attending Clinician Shun Roper Attending [...] Date Expiration Date S isidro [employer] MEDICARE [id number] 2018 ADVANTAGE HMO 00:00:00 [employer] GOLD PLS [id number] 2018 HMO 00:00:00 Problems Condition Condition Condition Status Onset Resolution Last Treating Co mments Source Name Details Category Date Date Treatment Clinician Date COMPLICATI COMPLICAT Diagnosis Active 2022-12-20 Memoria ONS, IONS, 12-02 21:47:00 l DIALYSIS, DIALYSIS, 00:00: Herm elidia CATHETER, CATHETER, 00 MECHA MECHA Active 12/02/2022 [facility] COMPLICATI COMPLICAT Diagnosis Active 2022-12-04 Memoria ON OF AV ION OF AV 12-02 08:14:00 l FISTULA FISTULA 00:00: Momo Active 00 12/02/2022 [facility] SI Active Diagnosis Active 2018-092019-08-19 Memoria 08/19/201910-19 14:02:00 l Sugar 00:00: [place] 00 NEW NEW Diagnosis Active 2019-06-22 Mem oria EVALUATION EVALUATION 03-18 07:29:00 l Active 00:00: Siler 03/18/2019 00 [facility] G81.92 G81.92 Diagnosis Active 2019-01-27 Me moria Active 01-27 09:05:00 l 01/27/2019 07:00: Luisito walsh [facility] 00 COLON COLON Diagnosis Active 2017-092019-01-04 Sd moria CANCER CANCER 11-25 16:49:00 l SCREENING- SCREENING- 00:00: He rmann Z12.11 Z12.11 00 Active 09/24/2018 [place] I63.9, I63.9, Diagnosis Active 2017-092019-01-10 Sd moria N18.6 N18.6 0 16:23:00 l Active 07:00: Momo 07/16/2018 00 [facility] N18.6 N18.6 Diagnosis Active 2018-03-02 Mem oria Active 02-18 07:38:00 l 02/18/2018 00:00: Luisito walsh 00 [facility] N/A N/A Diagnosis Active 2018-03-02 Mem oria Active 02-18 07:38:00 l 02/18/2018 00:00: Luisito walsh 00 [facility] EVAL EVAL Diagnosis Active 2018-03-22 Mem oria Active 02-04 11:30:00 l 02/04/2018 00:00: Luisito walsh [facility] 00 PA RENAL PA RENAL Diagnosis Active 2018-01-27 Memoria ACCT FOR ACCT FOR 01-27 13:17:00 l F/C NOTES F/C NOTES 08:00: Herm elidia ONLY ONLY 00 Active 01/27/2018 [facility] FALL FALL Diagnosis Active 2018-04-09 Mem oria Active 01-27 14:03:00 l 01/27/2018 00:00: Luisito walsh [address] N18.16 N18.16 Diagnosis Active 2017-11-14 Me moria Active 10-29 10:52:00 l 10/29/2017 00:00: Luisito walsh [address] T82.390A/N Diagnosis Active 2017-06-26 Memoria 18.6 T82.390A/N - 07:13:00 l 18.6 00:00: Momo Active 00 06/16/2017 [facility] INTRACRANI INTRACRAN Diagnosis Active 2013-11-25 Memoria AL IAL 11-22 15:29:00 l HEMORRHAGE HEMORRHAGE 00:00: He rmann Active 11/22/[address] [facility] OTHER OTHER Diagnosis Active 2013-11-22 Mem oria Active 11-22 13:18:00 l 11/22/2013 00:00: Luisito walsh [address] 719.4 - 719.4 - Diagnosis Active 2013-02-01 Memoria PAIN IN PAIN IN -18 19:45:00 l JOINT JOINT 00:01: Momo Active 12/14/2012 [facility] KNEE PAIN KNEE PAIN Diagnosis Active 2012-11-03 Memoria Active 11-03 09:25:00 l 11/03/2012 07:00: Luisito walsh [address] SWOLLEN SWOLLEN Diagnosis Active 2012-02-14 Memoria FACE FACE 4-10 09:39:00 l Active 05:00: Momo 01/07/2012 [address] [facility] No known No known Disease Unive rs active active ity of problems problems [facility] End stage End stage Problem Active 2018-04-09 Memoria renal renal 14:34:12 l disease disease Momo (disorder) (disorder) Active Problem 04/09/2018 [facility], [facility] [place] Dependence Dependenc Problem Active 2018-04-09 Memoria on renal e on renal 14:34:12 l dialysis dialysis Luisito walsh (finding) (finding) Active Problem 04/09/2018 [facility], [facility] [place] Knee pain Knee pain Problem Active 2018-04-09 Memjorge (finding) (finding) 14:34:12 l Active Momo Problem 04/09/2018 [facility], [facility], [facility] Asthenia Asthenia Problem Active 2017-09-04 Memoria (finding) (finding) 03:33:54 l Active Momo Problem 09/04/2017 left side Medical Group,[facility], [place] Dependence Dependenc Problem Active 2022-12-16 Memoria on e on 23:09:33 l hemodialys hemodialys He rmann is due to is due to end stage end stage renal renal disease disease (finding) (finding) Active Problem 12/16/2022 [facility], [facility], [facility] History of History Problem Active 2022-12-16 Memoria adenomatou of 23:09:33 l s polyp of adenomatou He rmann colon s polyp of (situation colon ) (situation ) Active Problem 12/16/2022 [facility] Group,[facility], [facility] History of History Problem Active 2022-12-16 Memoria - CVA of - CVA 23:09:33 l (context-d (context-d He rmann ependent ependent category) category) Active Problem 12/16/2022 [facility], [facility] Hypertensi Hypertens Problem Active 2022-12-16 Memoria ve babs 23:09:33 l disorder, disorder, Herm elidia systemic systemic arterial arterial (disorder) (disorder) Active Problem 12/16/2022 [facility], [facility], [facility] Left Left Problem Active 2022-12-16 Memor ia hemiparesi hemiparesi 23:09:33 l s s [place] (disorder) (disorder) Active Problem 12/16/2022 [facility] Group,[facility], [facility], [facility] Obesity Obesity Problem Active 2022-12-16 Me moria (disorder) (disorder) 23:09:33 l Active Momo Problem 12/16/2022 [facility], [facility], Isabell Murillo,Memor ial [facility] OT Diagnosis Active 2022-12-20 Mem oria COMPLICATI COMPLICATI 21:47:00 l ON OF ON OF [place] VASCULAR VASCULAR DIALYSIS DIALYSIS CA CA Active [facility] Diagnosis Active 2022-12-04 Memoria OF COMPL OF 08:14:00 l SURGICALLY SURGICALLY He rmann CREATED CREATED ARTERIO ARTERIO Active [facility] ADMINISTRT Diagnosis Active 2013-11-25 Memoria VE ENCOUNT ADMINISTRT 15:29:00 l NOS VE ENCOUNT Luisito n NOS Active 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 12:05:44 l kidney kidney Momo disease disease 02/19/2018 [facility] Hyperlipid Hyperlipi Problem 2018-02-19 Memoria emia, demia, 12:05:44 l unspecifie unspecifie He rmann d d 02/19/2018 [facility] Personal Personal Problem 2018-02-19 Memoria history of history of 12:05:44 l other other Momo infectious infectious and and parasitic parasitic diseases diseases 02/19/2018 [facility] Other Other Problem 2019-03-11 Memor ia speech and speech and 11:15:31 l language language Luisito walsh deficits deficits following following cerebral cerebral infarction infarction 03/11/2019 [facility] Benign Benign Problem 2019-04-13 [place] neoplasm neoplasm 12:31:49 l of of [place] transverse transverse colon colon 04/13/[address] [facility] Polyp of Polyp of Problem 2019-04-13 Memoria colon colon 12:31:49 l 04/13/2019 Luisito n [place] Diverticul Diverticu Problem 2019-04-13 Memoria osis of losis of 12:31:49 l large large Momo intestine intestine without without perforatio perforatio n or n or abscess abscess without without bleeding bleeding 04/13/2019 [place] First First Problem 2019-04-13 Memor ia degree degree 12:31:49 l hemorrhoid hemorrhoid He rmann s s 04/13/2019 [place] Hypertensi Hypertens Problem 2019-04-13 Memoria ve chronic babs 12:31:49 l kidney chronic Siler disease kidney with stage disease 5 chronic with stage kidney 5 chronic disease or kidney end stage disease or renal end stage disease renal disease 04/13/2019 [facility] [place] Hemiplegia Hemiplegi Problem 2019-04-13 Memoria and a and 12:31:49 l hemiparesi hemiparesi He curt s s following following cerebral cerebral infarction infarction affecting affecting left left non-domina non-domina nt side nt side 04/13/2019 [facility], [place] Obesity, Obesity, Problem 2019-04-13 Memoria unspecifie unspecifie 12:31:49 l d d Momo 04/13/2019 [facility], [place] Gastro-eso Problem 2019-04-13 M emoria phageal Gastro-eso 12:31:49 l reflux phageal Momo disease reflux without disease esophagiti without s esophagiti s 04/13/2019 [place] Dependence Dependenc Problem 2019-04-13 Memoria on renal e on renal 12:31:49 l dialysis dialysis Luisito walsh 04/13/2019 [facility], [facility], [place] 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) (current) [facility] drug therapy therapy 04/13/2019 [place] Body mass Body mass Problem 2019-04-13 Memoria index index 12:31:49 l (BMI) (BMI) Momo 34.0-34.9, 34.0-34.9, adult adult 04/13/2019 [place] 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 11:27:14 l mellitus mellitus Luisito walsh 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 01/04/2019 [facility] Hypertensi Hypertens Problem 2019-01-04 Memoria ve heart babs heart 11:27:14 l and and [place] chronic chronic kidney kidney disease disease without without heart heart failure, failure, with stage with stage 5 chronic 5 chronic kidney kidney disease, disease, or end or end stage stage renal renal disease disease 01/04/2019 [facility] Abrasion, Abrasion, Problem 2018-02-06 Memoria left knee, left knee, 01:28:35 l initial initial Momo encounter encounter 02/06/2018 [facility] Fall from Fall from Problem 2018-02-06 Memoria non-moving non-moving 01:28:35 l wheelchair wheelchair He curt , initial , initial encounter encounter 02/06/2018 [facility] Personal Personal Problem 2019-02-14 Memoria history of history of 11:52:48 l transient transient Herm elidia ischemic ischemic attack attack (TIA), and (TIA), and cerebral cerebral infarction infarction without without residual residual deficits deficits 02/14/2019 [facility], [place] HTN - HTN - Problem Resolve 2012-11-05 [place] Hypertensi Hypertensi d 14:11:00 l on on [place] Resolved Problem 11/05/[address] [facility] Anemia Anemia Problem Resolve 2022-12-09 Mem oria (disorder) (disorder) d 15:15:22 l Resolved [place] Problem 12/09/2022 [facility], [facility], [facility] Gastroesop Gastroeso Problem Resolve 2022-12-09 Memoria hageal phageal d 15:15:22 l reflux reflux [place]iler disease disease (disorder) (disorder) Resolved Problem 12/09/2022 [facility], [facility], [facility] Motion Motion Problem Resolve 2022-12-09 Mem oria sickness sickness d 15:15:22 l (disorder) (disorder) He rmann Resolved Problem 12/09/2022 [facility], [facility], 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 Urinary Urinary Problem Resolve 2022-12-09 Memoria tract tract d 15:15:22 l infectious infectious He rmann disease disease (disorder) (disorder) Resolved Problem 12/09/2022 [facility], [facility], [facility] Diabetes Diabetes Problem Resolve 2013-11-28 Memoria mellitus mellitus d 22:32:01 l (disorder) (disorder) He rmann Resolved Problem 11/28/[address] [facility] Cerebrovas Cerebrova Problem Resolve 2013-2022-12-09 2022-12-09 Memoria cular scular d 11-23 15:15:22 15:15:22 l accident accident 00:00: Luisito walsh (disorder) (disorder) 00 Resolved 11/23/2013 Problem 12/09/2022 [facility], [facility], [place] History of Past Illness Condition Condition Condition Status Onset Resolution Last Treating Co mments Source Name Details Category Date Date Treatment Clinician Date End stage End stage Problem 2018-092019-08-22 2019-08-22 Memoria renal renal 10-20 22:46:11 22:46:11 l disease disease 18:00: Momo 08/20/2019 00 9 [facility], [facility], [place] Suicidal Suicidal Problem 2018-092019-08-22 2019-08-22 Memoria ideations ideations 10-20 22:46:11 22:46:11 l 08/20/2019 18:00: Luisito walsh 00 9 [place] Encounter Encounter Problem 2019-04-13 2019-04-13 Memoria for for 10-02 12:31:49 12:31:49 l screening screening 05:06: Herm elidia for for 02 malignant malignant neoplasm neoplasm of colon of colon 10/02/2018 04/13/2019 [place] Other Other Problem 2017-092019-03-11 2019-03-11 M emoria symptoms symptoms 10-30 11:15:31 11:15:31 l and signs and signs 11:35: Herm elidia involving involving 10 cognitive cognitive functions functions following following cerebral cerebral infarction infarction 08/29/2018 03/11/2019 [facility] Hypotensio Hypotensi Problem 2017-092019-02-14 2019-02-14 Mathieu walsh, on, 10-01 11:52:48 11:52:48 l unspecifie unspecifie 04:15: Mingo acosta 02 08/01/2018 02/14/2019 [place] Poisoning Poisoning Problem 2017-092019-02-14 2019-02-14 Memoria by by 0-30 11:52:48 11:52:48 l unspecifie unspecifie 05:00: He rmann d drugs, d drugs, 00 medicament medicament s and s and biological biological substances substances , , accidental accidental (unintenti (unintenti onal), onal), initial initial encounter encounter 07/28/2018 02/14/2019 [place] Stenosis Stenosis Problem 2017-2018-04-09 2018-04-09 Memoria of of 01-21 14:34:12 14:34:12 l vascular vascular 03:32: Luisito walsh prosthetic prosthetic 44 devices, devices, implants implants and and grafts, grafts, initial initial encounter encounter 01/21/2018 8 [facility] Essential Essential Problem 2018-02-27 2018-02-27 Memoria (primary) (primary) 02-24 02:54:03 02:54:03 l hypertensi hypertensi 05:00: Mingo elias on on 02/24/2018 8 [place] Pain in Pain in Problem 2018-02-06 2018-02-06 Memoria unspecifie unspecifie 01-27 01:28:35 01:28:35 l d knee d knee 05:00: Momo 01/27/2018 00 8 [facility] Unspecifie Unspecifi Problem 2017-05-12 2017-05-12 Memoria d ed 05-09 05:31:02 05:31:02 l complicati complicati 05:00: Mingo elias on of on of 00 cardiac cardiac and and vascular vascular prosthetic prosthetic device, device, implant implant and graft, and graft, initial initial encounter encounter 05/09/2017 05/12/2017 [place] Allergies, Adverse Reactions, Alerts Allergy Allergy Status Severity Reaction(s) Onset Inactive Treating Comm ents Source Name Type Date Date Clinician Martín Propensi Active Rash No Univer s h ty to 03-27 allergy ity of Derived adverse 00:00: to iodine [place] reaction 00 per Medical s patient Branch SHELLFIS DRUG Active Rash Univers H INGREDI 03-27 ity of DERIVED 00:00: [place] 00 [facility] harlanharrison claross Active Memori a h h l Momo No Known No Known Active Memori a Medicati Medicati l on on Momo terry s Social History Social Habit Start Date Stop Date Quantity Comments Source Exposure to 2022-11-22 2022-12-02 Not sure [facility] SARS-CoV-2 (event) 00:00:00 11:38:00 Medica l Branch Social History 2018-07-28 2018-07-28 [facility] Prasanna ele 18:58:22 18:58:22 Sex Ass[birth year] [facility] 00:00:00 00:00:00 Medical Branch Smoking Status Start Date Stop Date Source Tobacco smoking [facility] [place] xa consumption unknown Medical Bran Tobacco smoking [...] 30 tab, 0 coated Refill(s), tablet Pharmacy: [facility] #[id number], 170.18, cm, 12/02/22 20:25:00 [employer]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, Height, 91.364, kg, 12/02/22 20:25:00 ENTRY L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, Weight Vitamin C Yes 500 mg = 1 Me moria 500 mg oral 3-18 tab, PO, l tablet 16:56: Daily, # Momo 00 30 tab, 0 Refill(s), Pharmacy: [id number], 170.18, cm, 12/02/22 20:25:00 ENTRY L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, Height, 91.364, kg, 12/02/22 20:25:00 ENTRY L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, Weight ferrous Yes 325 mg = 1 [place] sulfate 325 3-18 tab, PO, l mg oral 16:56: Daily, # Luisito n enteric 00 30 tab, 0 coated Refill(s), tablet Pharmacy: [facility] #[id number], 170.18, cm, 12/02/22 20:25:00 ENTRY L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, Height, 91.364, kg, 12/02/22 20:25:00 ENTRY L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, Weight Vitamin C Yes 500 mg = 1 Me moria 500 mg oral 3-18 tab, PO, l tablet 16:56: Daily, # Momo 00 30 tab, 0 Refill(s), Pharmacy: [id number], 170.18, cm, 12/02/22 20:25:00 ENTRY L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, Height, 91.364, kg, 12/02/22 20:25:00 ENTRY L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, Weight ferrous 2022-0 Yes 325 mg = 1 [place] sulfate 325 3-18 tab, PO, l mg oral 16:56: Daily, # Luisito n enteric 00 30 tab, 0 coated Refill(s), tablet Pharmacy: [id number], 170.18, cm, 12/02/22 20:25:00 ENTRY L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, Height, 91.364, kg, 12/02/22 20:25:00 ENTRY L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, Weight Vitamin C 2022-0 Yes 500 mg = 1 Me moria 500 mg oral 3-18 tab, PO, l tablet 16:56: Daily, # Momo 00 30 tab, 0 Refill(s), Pharmacy: [id number], 170.18, cm, 12/02/22 20:25:00 ENTRY L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, Height, 91.364, kg, 12/02/22 20:25:00 ENTRY L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, Weight ferrous 2022-0 Yes 325 mg = 1 [place] sulfate 325 3-18 tab, PO, l mg oral 16:56: Daily, # Luisito n enteric 00 30 tab, 0 coated Refill(s), tablet Pharmacy: [id number], 170.18, cm, 12/02/22 20:25:00 ENTRY L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, Height, 91.364, kg, 12/02/22 20:25:00 ENTRY L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, Weight Vitamin C 2022-0 Yes 500 mg = 1 Me moria 500 mg oral 3-18 tab, PO, l tablet 16:56: Daily, # [place] 00 30 tab, 0 Refill(s), Pharmacy: [id number], 170.18, cm, 12/02/22 20:25:00 ENTRY L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, Height, 91.364, kg, 12/02/22 20:25:00 ENTRY L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, Weight Tylenol 2022-0 Yes 1 tab, PO, [place] with 3-18 Q6H, PRN l Codeine #3 16:46: Pain, not He rmann oral tablet 00 to exceed 4000 mg acetaminop hen per day, X 4 day, # 20 tab, 0 Refill(s), Pharmacy: [id number], 170.18, cm, 12/02/22 20:25:00 ENTRY L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, Height, 91.364, kg, 12/02/22 20:25:00 ENTRY L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, Weight Tylenol 3-0 Yes 1 tab, PO, [place] with 3-18 Q6H, PRN l Codeine #3 16:46: Pain, not He rmann oral tablet 00 to exceed 4000 mg acetaminop hen per day, X 4 day, # 20 tab, 0 Refill(s), Pharmacy: [facility] #[id number], 170.18, cm, 12/02/22 20:25:00 ENTRY L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, Height, 91.364, kg, 12/02/22 20:25:00 ENTRY L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, Weight Tylenol 3-0 Yes 1 tab, PO, [place] with 3-18 Q6H, PRN l Codeine #3 16:46: Pain, not He rmann oral tablet 00 to exceed 4000 mg acetaminop hen per day, X 4 day, # 20 tab, 0 Refill(s), Pharmacy: [facility] #[id number], 170.18, cm, 12/02/22 20:25:00 ENTRY L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, Height, 91.364, kg, 12/02/22 20:25:00 ENTRY L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, Weight Tylenol 3-0 Yes 1 tab, PO, [place] with 3-18 Q6H, PRN l Codeine #3 16:46: Pain, not He rmann oral tablet 00 to exceed 4000 mg acetaminop hen per day, X 4 day, # 20 tab, 0 Refill(s), Pharmacy: [facility] #[id number], 170.18, cm, 12/02/22 20:25:00 ENTRY L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, Height, 91.364, kg, 12/02/22 20:25:00 ENTRY L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, Weight aspirin 81 3-0 Yes 81 mg = 1 Me moria mg tablet, 3-18 tab, PO, l enteric 16:45: Daily, # Luisito n coated 00 90 tab, 3 Refill(s), Pharmacy: [facility] #[id number], 170.18, cm, 12/02/22 20:25:00 ENTRY L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, Height, 91.364, kg, 12/02/22 20:25:00 ENTRY L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, Weight atorvastati 2022-0 Yes 40 mg = 1 M emoria n 40 mg 3-18 tab, PO, l oral tablet 16:45: Bedtime, # Siler 00 30 tab, 0 Refill(s), Pharmacy: [id number], 170.18, cm, 12/02/22 20:25:00 ENTRY L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, Height, 91.364, kg, 12/02/22 20:25:00 ENTRY L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, Weight aspirin 81 202-0 Yes 81 mg = 1 Me moria mg tablet, 3-18 tab, PO, l enteric 16:45: Daily, # Luisito n coated 00 90 tab, 3 Refill(s), Pharmacy: [id number], 170.18, cm, 12/02/22 20:25:00 ENTRY L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, Height, 91.364, kg, 12/02/22 20:25:00 ENTRY L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, Weight atorvastati 2022-0 Yes 40 mg = 1 M emoria n 40 mg 3-18 tab, PO, l oral tablet 16:45: Bedtime, # Momo 00 30 tab, 0 Refill(s), Pharmacy: [id number], 170.18, cm, 12/02/22 20:25:00 ENTRY L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, Height, 91.364, kg, 12/02/22 20:25:00 ENTRY L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, Weight aspirin 81 2022-0 Yes 81 mg = 1 Me moria mg tablet, 3-18 tab, PO, l enteric 16:45: Daily, # Luisito n coated 00 90 tab, 3 Refill(s), Pharmacy: [id number], 170.18, cm, 12/02/22 20:25:00 ENTRY L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, Height, 91.364, kg, 12/02/22 20:25:00 ENTRY L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, Weight atorvastati 2022-0 Yes 40 mg = 1 M emoria n 40 mg 3-18 tab, PO, l oral tablet 16:45: Bedtime, # Momo 00 30 tab, 0 Refill(s), Pharmacy: [id number], 170.18, cm, 12/02/22 20:25:00 ENTRY L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, Height, 91.364, kg, 12/02/22 20:25:00 ENTRY L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, Weight aspirin 81 2022-0 Yes 81 mg = 1 Me moria mg tablet, 3-18 tab, PO, l enteric 16:45: Daily, # Luisito n coated 00 90 tab, 3 Refill(s), Pharmacy: [id number], 170.18, cm, 12/02/22 20:25:00 ENTRY L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, Height, 91.364, kg, 12/02/22 20:25:00 ENTRY L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, Weight atorvastati 2022-0 Yes 40 mg = 1 M emoria n 40 mg 3-18 tab, PO, l oral tablet 16:45: Bedtime, # Momo 00 30 tab, 0 Refill(s), Pharmacy: [id number], 170.18, cm, 12/02/22 20:25:00 ENTRY L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, Height, 91.364, kg, 12/02/22 20:25:00 ENTRY L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, Weight midodrine 5 0 Yes 10 mg = 2 M emoria mg oral 3-18 tab, PO, l tablet 16:44: Q8Hnow, # Luisito n 00 180 tab, 0 Refill(s), Pharmacy: [id number], 170.18, cm, 12/02/22 20:25:00 ENTRY L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, Height, 91.364, kg, 12/02/22 20:25:00 ENTRY L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, Weight midodrine 5 0 Yes 10 mg = 2 M emoria mg oral 3-18 tab, PO, l tablet 16:44: Q8Hnow, # Luisito n 00 180 tab, 0 Refill(s), Pharmacy: [id number], 170.18, cm, 12/02/22 20:25:00 ENTRY L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, Height, 91.364, kg, 12/02/22 20:25:00 ENTRY L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, Weight midodrine 5 0 Yes 10 mg = 2 M emoria mg oral 3-18 tab, PO, l tablet 16:44: Q8Hnow, # Luisito n 00 180 tab, 0 Refill(s), Pharmacy: [facility] #[id number], 170.18, cm, 12/02/22 20:25:00 ENTRY L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, Height, 91.364, kg, 12/02/22 20:25:00 ENTRY L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, Weight midodrine 5 Yes 10 mg = 2 M emoria mg oral 3-18 tab, PO, l tablet 16:44: Q8Hnow, # Luisito n 00 180 tab, 0 Refill(s), Pharmacy: [id number], 170.18, cm, 12/02/22 20:25:00 ENTRY L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, Height, 91.364, kg, 12/02/22 20:25:00 ENTRY L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, Weight Lokelma 10 No Notes: Memor ia [...] as: l powder for 20:34: Lokelm a) Siler reconstitut 00 Mix with ion 45 mL water prior to administra tion Lokelma 10 No Notes: Memor ia g oral 3-12 (Same as: l powder for 20:34: Lokelm a) Siler reconstitut 00 Mix with ion 45 mL water prior to administra tion heparin Yes Notes: Memoria 3-10 porcine l 15:00: heparin Siler 00 heparin Yes Notes: Memoria 3-10 porcine l 15:00: heparin Siler 00 heparin Yes Notes: Memoria 3-10 porcine l 15:00: heparin Siler 00 heparin Yes Notes: Memoria 3-10 porcine l 15:00: heparin Momo 00 Lactated No 1,000 mL, [place] jessi Ringers 3-10 Rate: 125 l Injection 13:24: ml/hr, Luisito n IV 1,000 mL 00 Infuse over: 8 hr, Route: IV, Dosing Weight 91.364 kg, Total Volume: 1,000, Start date: 12/06/22 7:24:00 ENTRY L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, Duration: 30 day, Stop date: 01/05/23 7:23:00 CDT, BSA: 2.1 m2, 0 ANES 2022-0 No 10 mg, Memoria hydrALAZINE 3-10 Route: l 13:24: IVP, Momo 00 Q20Min, Dosing Weight 91.364, kg, PRN Elevated BP, Start date: 12/06/22 7:24:00 ENTRY L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, Duration: 2 doses or times, Stop date: Limited # of times ANES 2022-0 No 1,000 mg, Memoria acetaminoph 3-10 Route: PO, l en 13:24: Drug form: Momo 00 TAB, ONCE, Dosing Weight 91.364, kg, Start date: 12/06/22 7:24:00 ENTRY L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, Stop date: 12/06/22 7:24:00 ENTRY L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 ANES 0 No 25 Memoria fentaNYL 3-10 microgram, l 13:24: Route: Momo 00 IVP, Q5Min, Dosing Weight 91.364, kg, PRN Pain Score 4-6, Priority: Routine, Start date: 12/06/22 7:24:00 ENTRY L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, Duration: 4 doses or times, Stop date: Limited # of times ANES 2022-0 No 0.5 mg, Memoria HYDROmorpho 3-10 Route: l ne 13:24: IVP, Momo 00 Q10Min, Dosing Weight 91.364, kg, PRN Pain Score 7-10, Start date: 12/06/22 7:24:00 ENTRY L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, Duration: 4 doses or times, Stop date: Limited # of times ANES 2022-0 No 0.2 mg, Memoria flumazenil 3-10 Route: l 13:24: IVP, PRN, Momo 00 Dosing Weight 91.364, kg, PRN Benzodiaze pine Reversal, Initial dose, Start date: 12/06/22 7:24:00 ENTRY L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, Duration: 30 day, Stop date: 01/05/23 8:23:00 CDT ANES 2022-0 No 0.4 mg, Memoria naloxone 3-10 Route: l 13:24: IVP, Momo 00 Q2MIN, Dosing Weight 91.364, kg, PRN Narcotic Reversal, Start date: 12/06/22 7:24:00 ENTRY L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, Duration: 8 doses or times, Stop date: Limited # of times ANES 3-0 No 12.5 mg, Memoria diphenhydrA 3-10 Route: l MINE 13:24: IVP, Drug Siler 00 form: INJ, Q6H, Dosing Weight 91.364, kg, PRN Itching, Start date: 12/06/22 7:24:00 ENTRY L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, Duration: 30 day, Stop date: 01/05/23 7:23:00 CDT ANES 3-0 No 5 mg, Memoria ePHEDrine 3-10 Route: l 13:24: IVP, Siler 00 Q5Min, Dosing Weight 91.364, kg, PRN Low Blood Pressure, Start date: 12/06/22 7:24:00 ENTRY L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, Duration: 30 day, Stop date: 01/05/23 8:23:00 CDT ANES 3-0 No 2.49 mg, Memoria albuterol 3-10 Route: l 0.083% 13:24: NEB, Momo inhalation 00 Q20Min, solution Dosing Weight 91.364, kg, PRN Wheezing, Start date: 12/06/22 7:24:00 ENTRY L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, Duration: 30 day, Stop date: 01/05/23 8:23:00 CDT ANES 3-0 No 4 mg, Memoria ondansetron 3-10 Route: l 13:24: IVP, ONCE, Momo 00 Dosing Weight 91.364, kg, PRN Nausea & Vomiting, Start date: 12/06/22 7:24:00 ENTRY L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 Lactated 3-0 No 1,000 mL, Tico jessi Ringers 3-10 Rate: 125 l Injection 13:24: ml/hr, Luisito n IV 1,000 mL 00 Infuse over: 8 hr, Route: IV, Dosing Weight 91.364 kg, Total Volume: 1,000, Start date: 12/06/22 7:24:00 ENTRY L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, Duration: 30 day, Stop date: 01/05/23 7:23:00 CDT, BSA: 2.1 m2, 0 ANES 3-0 No 10 mg, Memoria hydrALAZINE 3-10 Route: l 13:24: IVP, Momo 00 Q20Min, Dosing Weight 91.364, kg, PRN Elevated BP, Start date: 12/06/22 7:24:00 ENTRY L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, Duration: 2 doses or times, Stop date: Limited # of times ANES 0 No 1,000 mg, Memoria acetaminoph 3-10 Route: PO, l en 13:24: Drug form: Momo 00 TAB, ONCE, Dosing Weight 91.364, kg, Start date: 12/06/22 7:24:00 ENTRY L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, Stop date: 12/06/22 7:24:00 ENTRY L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 ANES No 25 Memoria fentaNYL 3-10 microgram, l 13:24: Route: Momo 00 IVP, Q5Min, Dosing Weight 91.364, kg, PRN Pain Score 4-6, Priority: Routine, Start date: 12/06/22 7:24:00 ENTRY L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, Duration: 4 doses or times, Stop date: Limited # of times ANES 0 No 0.5 mg, Memoria HYDROmorpho 3-10 Route: l ne 13:24: IVP, Momo 00 Q10Min, Dosing Weight 91.364, kg, PRN Pain Score 7-10, Start date: 12/06/22 7:24:00 ENTRY L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, Duration: 4 doses or times, Stop date: Limited # of times ANES 0 No 0.2 mg, Memoria flumazenil 3-10 Route: l 13:24: IVP, PRN, Dosing Weight 91.364, kg, PRN Benzodiaze pine Reversal, Initial dose, Start date: 12/06/22 7:24:00 ENTRY L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, Duration: 30 day, Stop date: 01/05/23 8:23:00 CDT ANES 0 No 0.4 mg, Memoria naloxone 3-10 Route: l 13:24: IVP, Siler 00 Q2MIN, Dosing Weight 91.364, kg, PRN Narcotic Reversal, Start date: 12/06/22 7:24:00 ENTRY L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, Duration: 8 doses or times, Stop date: Limited # of times ANES 0 No 12.5 mg, Memoria diphenhydrA 3-10 Route: l MINE 13:24: IVP, Drug Siler 00 form: INJ, Q6H, Dosing Weight 91.364, kg, PRN Itching, Start date: 12/06/22 7:24:00 ENTRY L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, Duration: 30 day, Stop date: 01/05/23 7:23:00 CDT ANES 2023-0 No 5 mg, Memoria ePHEDrine 3-10 Route: l 13:24: IVP, Momo 00 Q5Min, Dosing Weight 91.364, kg, PRN Low Blood Pressure, Start date: 12/06/22 7:24:00 ENTRY L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, Duration: 30 day, Stop date: 01/05/23 8:23:00 CDT ANES 3-0 No 2.49 mg, Memoria albuterol 3-10 Route: l 0.083% 13:24: NEB, Siler inhalation 00 Q20Min, solution Dosing Weight 91.364, kg, PRN Wheezing, Start date: 12/06/22 7:24:00 ENTRY L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, Duration: 30 day, Stop date: 01/05/23 8:23:00 CDT ANES 3-0 No 4 mg, Memoria ondansetron 3-10 Route: l 13:24: IVP, ONCE, Momo 00 Dosing Weight 91.364, kg, PRN Nausea & Vomiting, Start date: 12/06/22 7:24:00 ENTRY L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 Lactated 3-0 No 1,000 mL, [place] jessi Ringers 3-10 Rate: 125 l Injection 13:24: ml/hr, Luisito n IV 1,000 mL 00 Infuse over: 8 hr, Route: IV, Dosing Weight 91.364 kg, Total Volume: 1,000, Start date: 12/06/22 7:24:00 ENTRY L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, Duration: 30 day, Stop date: 01/05/23 7:23:00 CDT, BSA: 2.1 m2, 0 ANES 3-0 No 10 mg, Memoria hydrALAZINE 3-10 Route: l 13:24: IVP, Momo 00 Q20Min, Dosing Weight 91.364, kg, PRN Elevated BP, Start date: 12/06/22 7:24:00 ENTRY L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, Duration: 2 doses or times, Stop date: Limited # of times ANES 2023-0 No 1,000 mg, Memoria acetaminoph 3-10 Route: PO, l en 13:24: Drug form: Momo 00 TAB, ONCE, Dosing Weight 91.364, kg, Start date: 12/06/22 7:24:00 ENTRY L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, Stop date: 12/06/22 7:24:00 ENTRY L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 ANES 2022-0 No 25 Memoria fentaNYL 3-10 microgram, l 13:24: Route: Siler 00 IVP, Q5Min, Dosing Weight 91.364, kg, PRN Pain Score 4-6, Priority: Routine, Start date: 12/06/22 7:24:00 ENTRY L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, Duration: 4 doses or times, Stop date: Limited # of times ANES 2022-0 No 0.5 mg, Memoria HYDROmorpho 3-10 Route: l ne 13:24: IVP, Siler 00 Q10Min, Dosing Weight 91.364, kg, PRN Pain Score 7-10, Start date: 12/06/22 7:24:00 ENTRY L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, Duration: 4 doses or times, Stop date: Limited # of times ANES 0 No 0.2 mg, Memoria flumazenil 3-10 Route: l 13:24: IVP, PRN, Dosing Weight 91.364, kg, PRN Benzodiaze pine Reversal, Initial dose, Start date: 12/06/22 7:24:00 ENTRY L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, Duration: 30 day, Stop date: 01/05/23 8:23:00 CDT ANES 2022-0 No 0.4 mg, Memoria naloxone 3-10 Route: l 13:24: IVP, Momo 00 Q2MIN, Dosing Weight 91.364, kg, PRN Narcotic Reversal, Start date: 12/06/22 7:24:00 ENTRY L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, Duration: 8 doses or times, Stop date: Limited # of times ANES 2022-0 No 12.5 mg, Memoria diphenhydrA 3-10 Route: l MINE 13:24: IVP, Drug form: INJ, Q6H, Dosing Weight 91.364, kg, PRN Itching, Start date: 12/06/22 7:24:00 ENTRY L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, Duration: 30 day, Stop date: 01/05/23 7:23:00 CDT ANES 2022-0 No 5 mg, Memoria ePHEDrine 3-10 Route: l 13:24: IVP, Siler 00 Q5Min, Dosing Weight 91.364, kg, PRN Low Blood Pressure, Start date: 12/06/22 7:24:00 ENTRY L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, Duration: 30 day, Stop date: 01/05/23 8:23:00 CDT ANES 3-0 No 2.49 mg, Memoria albuterol 3-10 Route: l 0.083% 13:24: NEB, Momo inhalation 00 Q20Min, solution Dosing Weight 91.364, kg, PRN Wheezing, Start date: 12/06/22 7:24:00 ENTRY L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, Duration: 30 day, Stop date: 01/05/23 8:23:00 CDT ANES 3-0 No 4 mg, Memoria ondansetron 3-10 Route: l 13:24: IVP, ONCE, Siler 00 Dosing Weight 91.364, kg, PRN Nausea & Vomiting, Start date: 12/06/22 7:24:00 ENTRY L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 Lactated 2022-0 No 1,000 mL, [place] jessi Ringers 3-10 Rate: 125 l Injection 13:24: ml/hr, Luisito n IV 1,000 mL 00 Infuse over: 8 hr, Route: IV, Dosing Weight 91.364 kg, Total Volume: 1,000, Start date: 12/06/22 7:24:00 ENTRY L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, Duration: 30 day, Stop date: 01/05/23 7:23:00 CDT, BSA: 2.1 m2, 0 ANES 2022-0 No 10 mg, Memoria hydrALAZINE 3-10 Route: l 13:24: IVP, Siler 00 Q20Min, Dosing Weight 91.364, kg, PRN Elevated BP, Start date: 12/06/22 7:24:00 ENTRY L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, Duration: 2 doses or times, Stop date: Limited # of times ANES 3-0 No 1,000 mg, Memoria acetaminoph 3-10 Route: PO, l en 13:24: Drug form: Siler 00 TAB, ONCE, Dosing Weight 91.364, kg, Start date: 12/06/22 7:24:00 ENTRY L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, Stop date: 12/06/22 7:24:00 ENTRY L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 ANES 2022-0 No 25 Memoria fentaNYL 3-10 microgram, l 13:24: Route: Momo 00 IVP, Q5Min, Dosing Weight 91.364, kg, PRN Pain Score 4-6, Priority: Routine, Start date: 12/06/22 7:24:00 ENTRY L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, Duration: 4 doses or times, Stop date: Limited # of times ANES 3-0 No 0.5 mg, Memoria HYDROmorpho 3-10 Route: l ne 13:24: IVP, Momo 00 Q10Min, Dosing Weight 91.364, kg, PRN Pain Score 7-10, Start date: 12/06/22 7:24:00 ENTRY L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, Duration: 4 doses or times, Stop date: Limited # of times ANES 2022-0 No 0.2 mg, Memoria flumazenil 3-10 Route: l 13:24: IVP, PRN, Siler 00 Dosing Weight 91.364, kg, PRN Benzodiaze pine Reversal, Initial dose, Start date: 12/06/22 7:24:00 ENTRY L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, Duration: 30 day, Stop date: 01/05/23 8:23:00 CDT ANES 2022-0 No 0.4 mg, Memoria naloxone 3-10 Route: l 13:24: IVP, Momo 00 Q2MIN, Dosing Weight 91.364, kg, PRN Narcotic Reversal, Start date: 12/06/22 7:24:00 ENTRY L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, Duration: 8 doses or times, Stop date: Limited # of times ANES 2022-0 No 12.5 mg, Memoria diphenhydrA 3-10 Route: l MINE 13:24: IVP, Drug Siler 00 form: INJ, Q6H, Dosing Weight 91.364, kg, PRN Itching, Start date: 12/06/22 7:24:00 ENTRY L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, Duration: 30 day, Stop date: 01/05/23 7:23:00 CDT ANES 3-0 No 5 mg, Memoria ePHEDrine 3-10 Route: l 13:24: IVP, Siler 00 Q5Min, Dosing Weight 91.364, kg, PRN Low Blood Pressure, Start date: 12/06/22 7:24:00 ENTRY L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, Duration: 30 day, Stop date: 01/05/23 8:23:00 CDT ANES 3-0 No 2.49 mg, Memoria albuterol 3-10 Route: l 0.083% 13:24: NEB, Momo inhalation 00 Q20Min, solution Dosing Weight 91.364, kg, PRN Wheezing, Start date: 12/06/22 7:24:00 ENTRY L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, Duration: 30 day, Stop date: 01/05/23 8:23:00 CDT ANES 2022-0 No 4 mg, Memoria ondansetron 3-10 Route: l 13:24: IVP, ONCE, Dosing Weight 91.364, kg, PRN Nausea & Vomiting, Start date: 12/06/22 7:24:00 ENTRY L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 ceFAZolin 2022-0 No Route: IV, Me moria (ANES) 3-10 Drug form: l 13:12: INJ, ONCE, Stop date: 12/06/22 7:12:00 ENTRY L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 ondansetron 2022-0 No Route: IV, Memoria (ANES) 3-10 Drug form: l 13:12: INJ, ONCE, Stop date: 12/06/22 7:12:00 ENTRY L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 dexamethaso 2022-0 No Route: IV, Memoria ne (ANES) 3-10 Drug form: l 13:12: INJ, ONCE, Stop date: 12/06/22 7:12:00 ENTRY L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 phenylephri 2022-0 No Route: IV, Memoria ne (ANES) 3-10 Drug form: l 13:12: INJ, ONCE, Stop date: 12/06/22 7:12:00 ENTRY L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 fentaNYL 2022-0 No Route: IV, Mem oria (ANES) 3-10 Drug form: l 13:12: INJ, ONCE, Stop date: 12/06/22 7:12:00 ENTRY L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 propofol 2022-0 No Route: IV, Mem oria (ANES) 3-10 Drug form: l 13:12: INJ, ONCE, Stop date: 12/06/22 7:12:00 ENTRY L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 lidocaine 2022-0 No Route: IV, Me moria (ANES) 3-10 Drug form: l 13:12: INJ, ONCE, Stop date: 12/06/22 7:12:00 ENTRY L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 Insulin 2022-0 No Route: IV, Tico jessi regular 3-10 Drug form: l (ANES) 13:12: INJ, ONCE, Joanna Stop date: 12/06/22 7:12:00 ENTRY L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 ceFAZolin 2022-0 No Route: IV, Me moria (ANES) 3-10 Drug form: l 13:12: INJ, ONCE, Stop date: 12/06/22 7:12:00 ENTRY L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 ondansetron 2022-0 No Route: IV, Memoria (ANES) 3-10 Drug form: l 13:12: INJ, ONCE, Stop date: 12/06/22 7:12:00 ENTRY L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 dexamethaso 2022-0 No Route: IV, Memoria ne (ANES) 3-10 Drug form: l 13:12: INJ, ONCE, Stop date: 12/06/22 7:12:00 ENTRY L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 phenylephri 2022-0 No Route: IV, Memoria ne (ANES) 3-10 Drug form: l 13:12: INJ, ONCE, Stop date: 12/06/22 7:12:00 ENTRY L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 fentaNYL 2022-0 No Route: IV, Mem oria (ANES) 3-10 Drug form: l 13:12: INJ, ONCE, Stop date: 12/06/22 7:12:00 ENTRY L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 propofol 2022-0 No Route: IV, Mem oria (ANES) 3-10 Drug form: l 13:12: INJ, ONCE, Stop date: 12/06/22 7:12:00 ENTRY L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 lidocaine 2022-0 No Route: IV, Me moria (ANES) 3-10 Drug form: l 13:12: INJ, ONCE, Stop date: 12/06/22 7:12:00 ENTRY L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 Insulin 2022-0 No Route: IV, Tico jessi regular 3-10 Drug form: l (ANES) 13:12: INJ, ONCE, Joanna Stop date: 12/06/22 7:12:00 ENTRY L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 ceFAZolin 2022-0 No Route: IV, Me moria (ANES) 3-10 Drug form: l 13:12: INJ, ONCE, Stop date: 12/06/22 7:12:00 ENTRY L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 ondansetron 2022-0 No Route: IV, Memoria (ANES) 3-10 Drug form: l 13:12: INJ, ONCE, Stop date: 12/06/22 7:12:00 ENTRY L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 dexamethaso 2022-0 No Route: IV, Memoria ne (ANES) 3-10 Drug form: l 13:12: INJ, ONCE, Stop date: 12/06/22 7:12:00 ENTRY L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 phenylephri 2022-0 No Route: IV, Memoria ne (ANES) 3-10 Drug form: l 13:12: INJ, ONCE, Stop date: 12/06/22 7:12:00 ENTRY L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 fentaNYL 2022-0 No Route: IV, Mem oria (ANES) 3-10 Drug form: l 13:12: INJ, ONCE, Stop date: 12/06/22 7:12:00 ENTRY L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 propofol 2022-0 No Route: IV, Mem oria (ANES) 3-10 Drug form: l 13:12: INJ, ONCE, Stop date: 12/06/22 7:12:00 ENTRY L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 lidocaine 2022-0 No Route: IV, Me moria (ANES) 3-10 Drug form: l 13:12: INJ, ONCE, Stop date: 12/06/22 7:12:00 ENTRY L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 Insulin 2022-0 No Route: IV, Tico jessi regular 3-10 Drug form: l (ANES) 13:12: INJ, ONCE, Stop date: 12/06/22 7:12:00 ENTRY L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 ceFAZolin 2022-0 No Route: IV, Me moria (ANES) 3-10 Drug form: l 13:12: INJ, ONCE, Stop date: 12/06/22 7:12:00 ENTRY L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 ondansetron 0 No Route: IV, Memoria (ANES) 3-10 Drug form: l 13:12: INJ, ONCE, Stop date: 12/06/22 7:12:00 ENTRY L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 dexamethaso 2022-0 No Route: IV, Memoria ne (ANES) 3-10 Drug form: l 13:12: INJ, ONCE, Stop date: 12/06/22 7:12:00 ENTRY L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 phenylephri 2022-0 No Route: IV, Memoria ne (ANES) 3-10 Drug form: l 13:12: INJ, ONCE, Siler 00 Stop date: 12/06/22 7:12:00 ENTRY L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 fentaNYL 2022-0 No Route: IV, Mem oria (ANES) 3-10 Drug form: l 13:12: INJ, ONCE, Momo 00 Stop date: 12/06/22 7:12:00 ENTRY L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 propofol 2022-0 No Route: IV, Mem oria (ANES) 3-10 Drug form: l 13:12: INJ, ONCE, Siler 00 Stop date: 12/06/22 7:12:00 ENTRY L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 lidocaine 2022-0 No Route: IV, Me moria (ANES) 3-10 Drug form: l 13:12: INJ, ONCE, Stop date: 12/06/22 7:12:00 ENTRY L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 Insulin 2022-0 No Route: IV, Tico jessi regular 3-10 Drug form: l (ANES) 13:12: INJ, ONCE, Joanna Stop date: 12/06/22 7:12:00 ENTRY L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 Sodium 2022-0 No Route: IV, Memor ia Chloride 3-10 Total l 0.9% IV 12:29: Volume: Siler (ANES) 500 00 500, Start mL date: 12/06/22 6:29:00 ENTRY L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, Stop date: 12/06/22 7:29:00 ENTRY L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 Dextrose 2022-0 No Route: IV, Mem oria 10% in 3-10 Total l Water IV 12:29: Volume: Luisito n (ANES) 250 00 250, Start mL date: 12/06/22 6:29:00 ENTRY L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, Stop date: 12/06/22 7:29:00 ENTRY L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 Sodium 3-0 No Route: IV, Memor ia Chloride 3-10 Total l 0.9% IV 12:29: Volume: Momo (ANES) 500 00 500, Start mL date: 12/06/22 6:29:00 ENTRY L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, Stop date: 12/06/22 7:29:00 ENTRY L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 Dextrose 2022-0 No Route: IV, Mem oria 10% in 3-10 Total l Water IV 12:29: Volume: Luisito n (ANES) 250 00 250, Start mL date: 12/06/22 6:29:00 ENTRY L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, Stop date: 12/06/22 7:29:00 ENTRY L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 Sodium 2023-0 No Route: IV, Memor ia Chloride 3-10 Total l 0.9% IV 12:29: Volume: Siler (ANES) 500 00 500, Start mL date: 12/06/22 6:29:00 ENTRY L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, Stop date: 12/06/22 7:29:00 ENTRY L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 Dextrose 202-0 No Route: IV, Mem oria 10% in 3-10 Total l Water IV 12:29: Volume: Luisito n (ANES) 250 00 250, Start mL date: 12/06/22 6:29:00 ENTRY L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, Stop date: 12/06/22 7:29:00 ENTRY L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 Sodium 2023-0 No Route: IV, Memor ia Chloride 3-10 Total l 0.9% IV 12:29: Volume: Siler (ANES) 500 00 500, Start mL date: 12/06/22 6:29:00 ENTRY L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, Stop date: 12/06/22 7:29:00 ENTRY L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 Dextrose 2022-0 No Route: IV, Mem oria 10% in 3-10 Total l Water IV 12:29: Volume: Luisito n (ANES) 250 00 250, Start mL date: 12/06/22 6:29:00 ENTRY L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, Stop date: 12/06/22 7:29:00 ENTRY L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 Lokelma 5 g 2022-0 Yes Notes: Tico [...] 3-09 (Same as: l for 18:00: Lokelma) Siler reconstitut 00 Mix with ion 45 mL water prior to administra tion amLODIPine 3-0 Yes Notes: Memor ia 3-09 (Same as: l 03:30: Norvasc) amLODIPine 2022-0 Yes Notes: Memor ia 3- (Same as: l 03:30: Norvasc) amLODIPine 2022-0 Yes Notes: Memor ia 3-09 (Same as: l 03:30: Norvas) amLODIPine 2022-0 Yes Notes: Memor ia 3- (Same as: l 03:30: Norvasc) Camilla 5/325 2022-0 Yes Notes: Tico jessi oral tablet 3- (Same as: l 03:23: Camilla Siler 00 325/5) Do not exceed 4gm/day of acetaminop hen. Camilla 5/325 2022-0 Yes Notes: Tico jessi oral tablet 3- (Same as: l 03:23: Camilla Momo 00 325/5) Do not exceed 4gm/day of acetaminop hen. Camilla 5/325 2022-0 Yes Notes: Itco jessi oral tablet 3-09 (Same as: l 03:23: Camilla Siler 00 325/5) Do not exceed 4gm/day of acetaminop hen. Camilla 5/325 2022-0 Yes Notes: Tico jessi oral tablet 3-09 (Same as: l 03:23: Camilla Momo 00 325/5) Do not exceed 4gm/day of acetaminop hen. amLODIPine 2022-0 No 10 mg, 1 Mem oria 3-08 tab, l 15:00: Route: PO, Momo 00 Drug form: TAB, Daily, Dosing Weight 91.364, kg, Start date: 12/04/22 9:00:00 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, Duration: 30 day, Stop date: 01/02/23 9:00:00 CDT amLODIPine 3-0 No 10 mg, 1 Mem oria 3-08 tab, l 15:00: Route: PO, Momo 00 Drug form: TAB, Daily, Dosing Weight 91.364, kg, Start date: 12/04/22 9:00:00 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, Duration: 30 day, Stop date: 01/02/23 9:00:00 CDT amLODIPine 3-0 No 10 mg, 1 Mem oria 3-08 tab, l 15:00: Route: PO, Momo 00 Drug form: TAB, Daily, Dosing Weight 91.364, kg, Start date: 12/04/22 9:00:00 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, Duration: 30 day, Stop date: 01/02/23 9:00:00 CDT amLODIPine 3-0 No 10 mg, 1 Mem oria 3-08 tab, l 15:00: Route: PO, Siler 00 Drug form: TAB, Daily, Dosing Weight 91.364, kg, Start date: 12/04/22 9:00:00 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, Duration: 30 day, Stop date: 01/02/23 9:00:00 CDT ANES 3-0 No 1,000 mg, Memoria acetaminoph 3-08 Route: PO, l en 00:36: Drug form: Siler 00 TAB, ONCE, Dosing Weight 91.364, kg, Start date: 12/03/22 18:36:00 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, Stop date: 12/03/22 18:36:00 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 ANES 3-0 No 5 mg, Memoria oxyCODONE 5 3-08 Route: PO, l mg 00:36: Drug form: Siler immediate 00 TAB, Q4H, release Dosing tablet Weight 91.364, kg, PRN Pain Score 4-6, Start date: 12/03/22 18:36:00 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, Duration: 30 day, Stop date: 01/02/23 18:35:00 CDT ANES 3-0 No 0.5 mg, Memoria HYDROmorpho 3-08 Route: l ne 00:36: IVP, Momo 00 Q10Min, Dosing Weight 91.364, kg, PRN Pain Score 7-10, Start date: 12/03/22 18:36:00 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, Duration: 4 doses or times, Stop date: Limited # of times ANES 3-0 No 0.2 mg, Memoria flumazenil 3-08 Route: l 00:36: IVP, PRN, Momo 00 Dosing Weight 91.364, kg, PRN Benzodiaze pine Reversal, Initial dose, Start date: 12/03/22 18:36:00 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, Duration: 30 day, Stop date: 01/02/23 19:35:00 CDT ANES 2022-0 No 0.4 mg, Memoria naloxone 3-08 Route: l 00:36: IVP, Momo 00 Q2MIN, Dosing Weight 91.364, kg, PRN Narcotic Reversal, Start date: 12/03/22 18:36:00 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, Duration: 8 doses or times, Stop date: Limited # of times ANES 3-0 No 1,000 mg, Memoria acetaminoph 3-08 Route: PO, l en 00:36: Drug form: Momo 00 TAB, ONCE, Dosing Weight 91.364, kg, Start date: 12/03/22 18:36:00 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, Stop date: 12/03/22 18:36:00 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 ANES 2022-0 No 5 mg, Memoria oxyCODONE 5 08 Route: PO, l mg 00:36: Drug form: Momo immediate 00 TAB, Q4H, release Dosing tablet Weight 91.364, kg, PRN Pain Score 4-6, Start date: 12/03/22 18:36:00 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, Duration: 30 day, Stop date: 01/02/23 18:35:00 CDT ANES 2022-0 No 0.5 mg, Memoria HYDROmorpho 308 Route: l ne 00:36: IVP, Siler 00 Q10Min, Dosing Weight 91.364, kg, PRN Pain Score 7-10, Start date: 12/03/22 18:36:00 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, Duration: 4 doses or times, Stop date: Limited # of times ANES 2022-0 No 0.2 mg, Memoria flumazenil 3-08 Route: l 00:36: IVP, PRN, Momo 00 Dosing Weight 91.364, kg, PRN Benzodiaze pine Reversal, Initial dose, Start date: 12/03/22 18:36:00 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, Duration: 30 day, Stop date: 01/02/23 19:35:00 CDT ANES 2022-0 No 0.4 mg, Memoria naloxone 3-08 Route: l 00:36: IVP, Siler 00 Q2MIN, Dosing Weight 91.364, kg, PRN Narcotic Reversal, Start date: 12/03/22 18:36:00 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, Duration: 8 doses or times, Stop date: Limited # of times ANES 3-0 No 4 mg, Memoria ondansetron 3-08 Route: l 00:36: IVP, ONCE, Momo Dosing Weight 91.364, kg, PRN Nausea & Vomiting, Start date: 12/03/22 18:36:00 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 ANES 3-0 No 4 mg, Memoria ondansetron 3-08 Route: l 00:36: IVP, ONCE, Siler Dosing Weight 91.364, kg, PRN Nausea & Vomiting, Start date: 12/03/22 18:36:00 ENTRY L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 ANES 3-0 No 1,000 mg, Memoria acetaminoph 3-08 Route: PO, l en 00:36: Drug form: Momo 00 TAB, ONCE, Dosing Weight 91.364, kg, Start date: 12/03/22 18:36:00 ENTRY L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, Stop date: 12/03/22 18:36:00 ENTRY L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 ANES 3-0 No 5 mg, Memoria oxyCODONE 5 3-08 Route: PO, l mg 00:36: Drug form: Momo immediate 00 TAB, Q4H, release Dosing tablet Weight 91.364, kg, PRN Pain Score 4-6, Start date: 12/03/22 18:36:00 ENTRY L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, Duration: 30 day, Stop date: 01/02/23 18:35:00 CDT ANES 3-0 No 0.5 mg, Memoria HYDROmorpho 3-08 Route: l ne 00:36: IVP, Momo 00 Q10Min, Dosing Weight 91.364, kg, PRN Pain Score 7-10, Start date: 12/03/22 18:36:00 ENTRY L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, Duration: 4 doses or times, Stop date: Limited # of times ANES 2022-0 No 0.2 mg, Memoria flumazenil 3-08 Route: l 00:36: IVP, PRN, Momo Dosing Weight 91.364, kg, PRN Benzodiaze pine Reversal, Initial dose, Start date: 12/03/22 18:36:00 ENTRY L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, Duration: 30 day, Stop date: 01/02/23 19:35:00 CDT ANES 3-0 No 0.4 mg, Memoria naloxone 3-08 Route: l 00:36: IVP, Momo 00 Q2MIN, Dosing Weight 91.364, kg, PRN Narcotic Reversal, Start date: 12/03/22 18:36:00 ENTRY L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, Duration: 8 doses or times, Stop date: Limited # of times ANES 3-0 No 4 mg, Memoria ondansetron 3-08 Route: l 00:36: IVP, ONCE, Momo 00 Dosing Weight 91.364, kg, PRN Nausea & Vomiting, Start date: 12/03/22 18:36:00 ENTRY L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 ANES 3-0 No 1,000 mg, Memoria acetaminoph 3-08 Route: PO, l en 00:36: Drug form: Siler 00 TAB, ONCE, Dosing Weight 91.364, kg, Start date: 12/03/22 18:36:00 ENTRY L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, Stop date: 12/03/22 18:36:00 ENTRY L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 ANES 3-0 No 5 mg, Memoria oxyCODONE 5 3-08 Route: PO, l mg 00:36: Drug form: Momo immediate 00 TAB, Q4H, release Dosing tablet Weight 91.364, kg, PRN Pain Score 4-6, Start date: 12/03/22 18:36:00 ENTRY L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, Duration: 30 day, Stop date: 01/02/23 18:35:00 CDT ANES 3-0 No 0.5 mg, Memoria HYDROmorpho 3-08 Route: l ne 00:36: IVP, Momo 00 Q10Min, Dosing Weight 91.364, kg, PRN Pain Score 7-10, Start date: 12/03/22 18:36:00 ENTRY L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, Duration: 4 doses or times, Stop date: Limited # of times ANES 3-0 No 0.2 mg, Memoria flumazenil 3-08 Route: l 00:36: IVP, PRN, Momo 00 Dosing Weight 91.364, kg, PRN Benzodiaze pine Reversal, Initial dose, Start date: 12/03/22 18:36:00 ENTRY L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, Duration: 30 day, Stop date: 01/02/23 19:35:00 CDT ANES 2023-0 No 0.4 mg, Memoria naloxone 3-08 Route: l 00:36: IVP, Siler 00 Q2MIN, Dosing Weight 91.364, kg, PRN Narcotic Reversal, Start date: 12/03/22 18:36:00 ENTRY L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, Duration: 8 doses or times, Stop date: Limited # of times ANES 2022-0 No 4 mg, Memoria ondansetron 3-08 Route: l 00:36: IVP, ONCE, Siler Dosing Weight 91.364, kg, PRN Nausea & Vomiting, Start date: 12/03/22 18:36:00 ENTRY L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 Sodium 2022-0 No Route: IV, Memor ia Chloride 3-07 Total l 0.9% IV 23:53: Volume: Momo (ANES) 1000 00 1,000, mL Start date: 12/03/22 17:53:00 ENTRY L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, Stop date: 12/03/22 18:53:00 ENTRY L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 Sodium 2022-0 No Route: IV, Memor ia Chloride 3-07 Total l 0.9% IV 23:53: Volume: Siler (ANES) 1000 00 1,000, mL Start date: 12/03/22 17:53:00 ENTRY L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, Stop date: 12/03/22 18:53:00 ENTRY L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 Sodium 2022-0 No Route: IV, Memor ia Chloride 3-07 Total l 0.9% IV 23:53: Volume: Momo (ANES) 1000 00 1,000, mL Start date: 12/03/22 17:53:00 ENTRY L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, Stop date: 12/03/22 18:53:00 ENTRY L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 Sodium 2022-0 No Route: IV, Memor ia Chloride 3-07 Total l 0.9% IV 23:53: Volume: Momo (ANES) 1000 00 1,000, mL Start date: 12/03/22 17:53:00 ENTRY L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, Stop date: 12/03/22 18:53:00 ENTRY L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 fentaNYL 2022-0 No Route: IV, Mem oria (ANES) 3-07 Drug form: l 23:52: INJ, ONCE, Stop date: 12/03/22 17:52:00 ENTRY L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 propofol 2022-0 No Route: IV, Mem oria (ANES) 3-07 Drug form: l 23:52: INJ, ONCE, Stop date: 12/03/22 17:52:00 ENTRY L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 ceFAZolin 2023-0 No Route: IV, Me moria (ANES) 3-07 Drug form: l 23:52: INJ, ONCE, Stop date: 12/03/22 17:52:00 ENTRY L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 ondansetron 2023-0 No Route: IV, Memoria (ANES) 3- Drug form: l 23:52: INJ, ONCE, Stop date: 12/03/22 17:52:00 ENTRY L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 fentaNYL 2023-0 No Route: IV, Mem oria (ANES) 3- Drug form: l 23:52: INJ, ONCE, Stop date: 12/03/22 17:52:00 ENTRY L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 propofol 3-0 No Route: IV, Mem oria (ANES) 3- Drug form: l 23:52: INJ, ONCE, Stop date: 12/03/22 17:52:00 ENTRY L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 ceFAZolin 3-0 No Route: IV, Me moria (ANES) 3- Drug form: l 23:52: INJ, ONCE, Stop date: 12/03/22 17:52:00 ENTRY L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 ondansetron 2022-0 No Route: IV, Memoria (ANES) 3- Drug form: l 23:52: INJ, ONCE, Stop date: 12/03/22 17:52:00 ENTRY L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 fentaNYL 3-0 No Route: IV, Mem oria (ANES) 3- Drug form: l 23:52: INJ, ONCE, Stop date: 12/03/22 17:52:00 ENTRY L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 propofol 2023-0 No Route: IV, Mem oria (ANES) 3- Drug form: l 23:52: INJ, ONCE, Stop date: 12/03/22 17:52:00 ENTRY L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 ceFAZolin 3-0 No Route: IV, Me moria (ANES) 3-07 Drug form: l 23:52: INJ, ONCE, Stop date: 12/03/22 17:52:00 ENTRY L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 ondansetron 2023-0 No Route: IV, Memoria (ANES) 3-07 Drug form: l 23:52: INJ, ONCE, Stop date: 12/03/22 17:52:00 ENTRY L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 fentaNYL 2022-0 No Route: IV, Mem oria (ANES) - Drug form: l 23:52: INJ, ONCE, Stop date: 12/03/22 17:52:00 ENTRY L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 propofol 2022-0 No Route: IV, Mem oria (ANES) - Drug form: l 23:52: INJ, ONCE, Stop date: 12/03/22 17:52:00 ENTRY L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 ceFAZolin 2022-0 No Route: IV, Me moria (ANES) 12-03 Drug form: l 23:52: INJ, ONCE, Stop date: 12/03/22 17:52:00 ENTRY L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 ondansetron 2022-0 No Route: IV, Memoria (ANES) - Drug form: l 23:52: INJ, ONCE, Stop date: 12/03/22 17:52:00 ENTRY L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 Lactated 2022-0 No 1,000 mL, [place] jess[place] Ringers - Rate: 75 l Injection 19:07: ml/hr, Luisito n IV 1,000 mL 00 Infuse over: 13.3 hr, Route: IV, Dosing Weight 91.364 kg, Total Volume: 1,000, Start date: 12/03/22 13:07:00 ENTRY LEVEL ELECTRICAL ENGINEER, Duration: 1 day, Stop date: 12/04/22 13:06:00 ENTRY LEVEL ELECTRICAL ENGINEER, BSA: 2.1 m2, 0 Sodium 2022-0 No 1,000 mL, Memori a Chloride 12-03 Rate: 75 l 0.9% IV 19:07: ml/hr, Momo 1,000 mL 00 Infuse over: 13.3 hr, Route: IV, Dosing Weight 91.364 kg, Total Volume: 1,000, Start date: 12/03/22 13:07:00 ENTRY LEVEL ELECTRICAL ENGINEER, Duration: 1 day, Stop date: 12/04/22 13:06:00 ENTRY LEVEL ELECTRICAL ENGINEER, BSA: 2.1 m2, 0 Lactated 3-0 No 1,000 mL, [place] Ringers 3-07 Rate: 75 l Injection 19:07: ml/hr, Luisito n IV 1,000 mL 00 Infuse over: 13.3 hr, Route: IV, Dosing Weight 91.364 kg, Total Volume: 1,000, Start date: 12/03/22 13:07:00 ENTRY LEVEL ELECTRICAL ENGINEER, Duration: 1 day, Stop date: 12/04/22 13:06:00 ENTRY LEVEL ELECTRICAL ENGINEER, BSA: 2.1 m2, 0 Sodium 2023-0 No 1,000 mL, Memori a Chloride 3-07 Rate: 75 l 0.9% IV 19:07: ml/hr, Momo 1,000 mL 00 Infuse over: 13.3 hr, Route: IV, Dosing Weight 91.364 kg, Total Volume: 1,000, Start date: 12/03/22 13:07:00 ENTRY LEVEL ELECTRICAL ENGINEER, Duration: 1 day, Stop date: 12/04/22 13:06:00 ENTRY LEVEL ELECTRICAL ENGINEER, BSA: 2.1 m2, 0 Lactated 2023-0 No 1,000 mL, [place] j[place] Ringers 3-07 Rate: 75 l Injection 19:07: ml/hr, Luisito n IV 1,000 mL 00 Infuse over: 13.3 hr, Route: IV, Dosing Weight 91.364 kg, Total Volume: 1,000, Start date: 12/03/22 13:07:00 ENTRY LEVEL ELECTRICAL ENGINEER, Duration: 1 day, Stop date: 12/04/22 13:06:00 ENTRY LEVEL ELECTRICAL ENGINEER, BSA: 2.1 m2, 0 Sodium 2023-0 No 1,000 mL, Memori a Chloride 3-07 Rate: 75 l 0.9% IV 19:07: ml/hr, Siler 1,000 mL 00 Infuse over: 13.3 hr, Route: IV, Dosing Weight 91.364 kg, Total Volume: 1,000, Start date: 12/03/22 13:07:00 ENTRY LEVEL ELECTRICAL ENGINEER, Duration: 1 day, Stop date: 12/04/22 13:06:00 ENTRY LEVEL ELECTRICAL ENGINEER, BSA: 2.1 m2, 0 Lactated 2023-0 No 1,000 mL, [place] jess[place] Ringers 3-07 Rate: 75 l Injection 19:07: ml/hr, Luisito n IV 1,000 mL 00 Infuse over: 13.3 hr, Route: IV, Dosing Weight 91.364 kg, Total Volume: 1,000, Start date: 12/03/22 13:07:00 ENTRY LEVEL ELECTRICAL ENGINEER, Duration: 1 day, Stop date: 12/04/22 13:06:00 ENTRY LEVEL ELECTRICAL ENGINEER, BSA: 2.1 m2, 0 Sodium 2023-0 No 1,000 mL, Memori a Chloride 3-07 Rate: 75 l 0.9% IV 19:07: ml/hr, Siler 1,000 mL 00 Infuse over: 13.3 hr, Route: IV, Dosing Weight 91.364 kg, Total Volume: 1,000, Start date: 12/03/22 13:07:00 ENTRY LEVEL ELECTRICAL ENGINEER, Duration: 1 day, Stop date: 12/04/22 13:06:00 ENTRY LEVEL ELECTRICAL ENGINEER, BSA: 2.1 m2, 0 metoprolol 2022-0 Yes Notes: Memor ia tartrate 3-07 (Same as: l 15:00: Lopressor) Siler metoprolol 2022-0 Yes Notes: Memor ia tartrate 3-07 (Same as: l 15:00: Lopressor) Momo metoprolol 2022-0 Yes Notes: Memor ia tartrate 3-07 (Same as: l 15:00: Lopressor) Siler metoprolol 2022-0 Yes Notes: Memor ia tartrate 3-07 (Same as: l 15:00: Lopressor) Momo Renvela 2022-0 Yes Notes: Memoria 3-07 Same as: l 14:00: Renvela Siler 00 Renvela 2022-0 Yes Notes: Memoria 3-07 Same as: l 14:00: Renvela Siler 00 Renvela 2022-0 Yes Notes: Memoria 3-07 Same as: l 14:00: Renvela Siler 00 Renvela 2022-0 Yes Notes: Memoria 3-07 Same as: l 14:00: Renvela Siler 00 D10W 0 Yes 250 mL, Memoria (bolus) IV 3-07 999 ml/hr, l 11:40: Route: IV, Siler 00 Drug Form: INJ, Dosing Weight 91.364, kg, PRN, PRN Blood Glucose Results, Start date: 12/03/22 5:40:00 ENTRY LEVEL ELECTRICAL ENGINEER, Duration: 30 day, Stop date: 01/02/23 6:39:00 CDT, Infuse over: 0.3 hr, 0 D1W 0 Yes 250 mL, Memoria (bolus) IV 3-07 999 ml/hr, l 11:40: Route: IV, Momo Drug Form: INJ, Dosing Weight 91.364, kg, PRN, PRN Blood Glucose Results, Start date: 12/03/22 5:40:00 ENTRY LEVEL ELECTRICAL ENGINEER, Duration: 30 day, Stop date: 01/02/23 6:39:00 CDT, Infuse over: 0.3 hr, 0 D10W 2023-0 Yes 250 mL, Memoria (bolus) IV 3-07 999 ml/hr, l 11:40: Route: IV, Momo 00 Drug Form: INJ, Dosing Weight 91.364, kg, PRN, PRN Blood Glucose Results, Start date: 12/03/22 5:40:00 ENTRY LEVEL ELECTRICAL ENGINEER, Duration: 30 day, Stop date: 01/02/23 6:39:00 CDT, Infuse over: 0.3 hr, 0 D10W 2023-0 Yes 250 mL, Memoria (bolus) IV 3-07 999 ml/hr, l 11:40: Route: IV, Momo 00 Drug Form: INJ, Dosing Weight 91.364, kg, PRN, PRN Blood Glucose Results, Start date: 12/03/22 5:40:00 ENTRY LEVEL ELECTRICAL ENGINEER, Duration: 30 day, Stop date: 01/02/23 6:39:00 CDT, Infuse over: 0.3 hr, 0 Dextrose 2023-0 No 25 mL, Memoria 50% Syringe 12-03 Route: l (D50W) 10:26: IVP, Momo 00 Dosing Weight 91.364, kg, PRN, PRN Blood Glucose Results, Start date: 12/03/22 4:26:00 ENTRY LEVEL ELECTRICAL ENGINEER, Duration: 30 day, Stop date: 01/02/23 5:25:00 CDT glucagon 2023-0 Yes 1 mg, Memoria 3- Route: IM, l 10:26: Drug form: Siler PDR/INJ, PRN, Dosing Weight 91.364, kg, PRN Blood Glucose Results, Start date: 12/03/22 4:26:00 ENTRY LEVEL ELECTRICAL ENGINEER, Duration: 30 day, Stop date: 01/02/23 5:25:00 CDT, 0 Dextrose 2023-0 No 25 mL, Memoria 50% Syringe 12-03 Route: l (D50W) 10:26: IVP, Momo Dosing Weight 91.364, kg, PRN, PRN Blood Glucose Results, Start date: 12/03/22 4:26:00 ENTRY LEVEL ELECTRICAL ENGINEER, Duration: 30 day, Stop date: 01/02/23 5:25:00 CDT glucagon 2023-0 Yes 1 mg, Memoria 3-07 Route: IM, l 10:26: Drug form: Siler 00 PDR/INJ, PRN, Dosing Weight 91.364, kg, PRN Blood Glucose Results, Start date: 12/03/22 4:26:00 ENTRY LEVEL ELECTRICAL ENGINEER, Duration: 30 day, Stop date: 01/02/23 5:25:00 CDT, 0 Dextrose 2023-0 No 25 mL, Memoria 50% Syringe 3- Route: l (D50W) 10:26: IVP, Momo Dosing Weight 91.364, kg, PRN, PRN Blood Glucose Results, Start date: 12/03/22 4:26:00 ENTRY LEVEL ELECTRICAL ENGINEER, Duration: 30 day, Stop date: 01/02/23 5:25:00 CDT glucagon 2023-0 Yes 1 mg, Memoria 3-07 Route: IM, l 10:26: Drug form: Momo PDR/INJ, PRN, Dosing Weight 91.364, kg, PRN Blood Glucose Results, Start date: 12/03/22 4:26:00 ENTRY LEVEL ELECTRICAL ENGINEER, Duration: 30 day, Stop date: 01/02/23 5:25:00 CDT, 0 Dextrose 2023-0 No 25 mL, Memoria 50% Syringe 3- Route: l (D50W) 10:26: IVP, Dosing Weight 91.364, kg, PRN, PRN Blood Glucose Results, Start date: 12/03/22 4:26:00 ENTRY LEVEL ELECTRICAL ENGINEER, Duration: 30 day, Stop date: 01/02/23 5:25:00 CDT glucagon 2023-0 Yes 1 mg, Memoria 3-07 Route: IM, l 10:26: Drug form: Momo 00 PDR/INJ, PRN, Dosing Weight 91.364, kg, PRN Blood Glucose Results, Start date: 12/03/22 4:26:00 ENTRY LEVEL ELECTRICAL ENGINEER, Duration: 30 day, Stop date: 01/02/23 5:25:00 CDT, 0 metoprolol 2021-0 Yes Take by Univ ers succinate 6-29 mouth. ity of 25 mg CSpX 09:45: [address] sevelamer 2022-0 Yes 800mg Take 800 Uni vers carbonate 6-29 mg by ity of ([place] 09:45: mouth. [place] ORAL) [address] [place] [address] metoprolol Yes Take by Univ ers succinate 6-29 mouth. ity of 25 mg CSpX 09:45: [place] [address] [facility] sevelamer 0 Yes 800mg Take 800 Uni vers carbonate 6-29 mg by ity of ([place] 09:45: mouth. [place] ORAL) [address] [place] [address] propofol 2017-09 No Route: IV, Mem oria (ANES) 2-27 Drug form: l 14:09: INJ, ONCE, Siler Stop date: 09/24/18 8:09:00 ENTRY LEVEL ELECTRICAL ENGINEER propofol 2017-09 No Route: IV, Mem oria (ANES) 2-27 Drug form: l 14:09: INJ, ONCE, Siler Stop date: 09/24/18 8:09:00 ENTRY LEVEL ELECTRICAL ENGINEER propofol 2017-09 No Route: IV, Mem oria (ANES) 2-27 Drug form: l 14:09: INJ, ONCE, Momo 00 Stop date: 09/24/18 8:09:00 ENTRY LEVEL ELECTRICAL ENGINEER propofol 2017-09 No Route: IV, Mem oria (ANES) 2-27 Drug form: l 14:09: INJ, ONCE, Momo Stop date: 09/24/18 8:09:00 ENTRY LEVEL ELECTRICAL ENGINEER Sodium 2017-09 No Route: IV, Memor ia Chloride 2-27 Total l 0.9% IV 13:40: Volume: Siler (ANES) 500 00 500, Start mL date: 09/24/18 7:40:00 ENTRY LEVEL ELECTRICAL ENGINEER, Stop date: 09/24/18 8:40:00 ENTRY LEVEL ELECTRICAL ENGINEER Sodium 2017-09 No Route: IV, Memor ia Chloride 2-27 Total l 0.9% IV 13:40: Volume: Siler (ANES) 500 00 500, Start mL date: 09/24/18 7:40:00 ENTRY LEVEL ELECTRICAL ENGINEER, Stop date: 09/24/18 8:40:00 ENTRY LEVEL ELECTRICAL ENGINEER Sodium 2018 No Route: IV, Memor ia Chloride 2-27 Total l 0.9% IV 13:40: Volume: Siler (ANES) 500 00 500, Start mL date: 09/24/18 7:40:00 ENTRY LEVEL ELECTRICAL ENGINEER, Stop date: 09/24/18 8:40:00 ENTRY LEVEL ELECTRICAL ENGINEER Sodium 2017-09 No Route: IV, Memor ia Chloride 2-27 Total l 0.9% IV 13:40: Volume: Siler (ANES) 500 00 500, Start mL date: 09/24/18 7:40:00 ENTRY LEVEL ELECTRICAL ENGINEER, Stop date: 09/24/18 8:40:00 ENTRY LEVEL ELECTRICAL ENGINEER polyethylen 2017-09 No See Memori a e glycol 10-25 Instructio l 3350 with 20:43: ns, as Luisito n electrolyte 00 directed, s oral # 4,000 powder for mL, 0 solution Refill(s), Pharmacy: [facility], this is the generic of Golytely being used as a bowel prep, not Miralax polyethylen 2017-09 No See Memori a e glycol - Instructio l 3350 with 20:43: ns, as Luisito n electrolyte 00 directed, s oral # 4,000 powder for mL, 0 solution Refill(s), Pharmacy: [facility], this is the generic of Golytely being used as a bowel prep, not Miralax polyethylen 2017-09 No See Memori a e glycol - Instructio l 3350 with 20:43: ns, as Luisito n electrolyte 00 directed, s oral # 4,000 powder for mL, 0 solution Refill(s), Pharmacy: [facility], this is the generic of Golytely being used as a bowel prep, not Miralax polyethylen 2017-09 No See Memori a e glycol - Instructio l 3350 with 20:43: ns, as Luisito n electrolyte 00 directed, s oral # 4,000 powder for mL, 0 solution Refill(s), Pharmacy: [facility], this is the generic of Golytely being used as a bowel prep, not Miralax losartan 50 2017-09 Yes 50 mg = 1 M emoria mg oral 1-27 tab, PO, l tablet 20:08: Daily, 0 Siler 00 Refill(s) losartan 50 2017-09 Yes 50 mg = 1 M emoria mg oral 1-27 tab, PO, l tablet 20:08: Daily, 0 Momo 00 Refill(s) losartan 50 2017-09 Yes 50 mg = 1 M emoria mg oral 1-27 tab, PO, l tablet 20:08: Daily, 0 Siler 00 Refill(s) losartan 50 2017-09 Yes 50 mg = 1 M emoria mg oral 1-27 tab, PO, l tablet 20:08: Daily, 0 Siler 00 Refill(s) Saline 2017-09 No Notes: Memoria Flush 0.9% 0-30 (Same as: l 17:40: BD Siler 00 Posiflush) Sodium 2017-09 No 500 mL, Memoria Chloride 0-30 500 ml/hr, l 0.9% 17:40: Infuse Siler (Bolus) IV 00 Over: 1 hr, Route: [...] 0-30 500 ml/hr, l 0.9% 17:40: Infuse Siler (Bolus) IV 00 Over: 1 hr, Route: IV, 500, Drug form: INJ, ONCE, Priority: STAT, Dosing Weight 93.182 kg, Start date: 07/28/18 12:40:00 CDT, Stop date: 07/28/18 12:40:00 CDT Saline 2017-09 No Notes: Memoria Flush 0.9% 0-30 (Same as: l 17:40: BD Siler 00 Posiflush) Sodium 2017-09 No 500 mL, [...] day, # 40 cap, 0 Refill(s), Pharmacy: [facility] Mupirocin No 1 appl, Memor ia 0.02 MG/MG 7-17 TOP, TID, l Topical 15:00: PRN as Siler Ointment 00 needed, [Bactroban] Apply to affected area(s), X 10 day, # 22 gm, 0 Refill(s), Pharmacy: [facility] clindamycin No 300 mg = 1 Memoria 300 mg oral 7-17 cap, PO, l capsule 15:00: Q6H, X 10 Joanna nn 00 day, # 40 cap, 0 Refill(s), Pharmacy: [facility] Mupirocin No 1 appl, Memor ia 0.02 MG/MG 7-17 TOP, TID, l Topical 15:00: PRN as Siler Ointment 00 needed, [Bactroban] Apply to affected area(s), X 10 day, # 22 gm, 0 Refill(s), Pharmacy: [facility] clindamycin No 300 mg = 1 Memoria 300 mg oral 7-17 cap, PO, l capsule 15:00: Q6H, X 10 Joanna nn 00 day, # 40 cap, 0 Refill(s), Pharmacy: [facility] Mupirocin No 1 appl, Memor ia 0.02 MG/MG 7-17 TOP, TID, l Topical 15:00: PRN as Siler Ointment 00 needed, [Bactroban] Apply to affected area(s), X 10 day, # 22 gm, 0 Refill(s), Pharmacy: [facility] clindamycin No 300 mg = 1 Memoria 300 mg oral 7-17 cap, PO, l capsule 15:00: Q6H, X 10 Joanna nn 00 day, # 40 cap, 0 Refill(s), Pharmacy: [facility] Mupirocin No 1 appl, Memor ia 0.02 MG/MG 7-17 TOP, TID, l Topical 15:00: PRN as Momo Ointment 00 needed, [Bactroban] Apply to affected area(s), X 10 day, # 22 gm, 0 Refill(s), Pharmacy: [facility] Cefazolin No Notes: Memori a 03-02 (Same As: l 14:00: Ancef, Siler Kefzol) MEDICATION WASTE Product Size: 1000 mg Product Wasted: ___ mg Cefazolin No Notes: Memori a 03-02 (Same As: l 14:00: Ancef, Momo Kefzol) MEDICATION WASTE Product Size: 1000 mg Product Wasted: ___ mg Cefazolin No Notes: Memori a 03-02 (Same As: l 14:00: Ancef, Momo Kefzol) MEDICATION WASTE Product Size: 1000 mg Product Wasted: ___ mg Cefazolin No Notes: Memori a 604 (Same As: l 14:00: Ancef, Siler Kefzol) MEDICATION WASTE Product Size: 1000 mg Product Wasted: ___ mg Restoril No Notes: Memoria 6-04 (Same As: l 13:48: Restoril) Restoril No Notes: Memoria 6-04 (Same As: l 13:48: Restoril) Siler 00 Restoril No Notes: Memoria 6-04 (Same As: l 13:48: Restoril) Restoril No Notes: Memoria 6-04 (Same As: l 13:48: Restoril) metoprolol Yes 50 mg = 1 Me moria tartrate 50 5-30 tab, PO, l mg oral 20:14: Q12H, # Momo tablet 00 180 tab, 1 Refill(s), Pharmacy: [facility] metoprolol Yes 50 mg = 1 Me moria tartrate 50 5-30 tab, PO, l mg oral 20:14: Q12H, # Siler tablet 00 180 tab, 1 Refill(s), Pharmacy: [place] [id number] metoprolol Yes 50 mg = 1 Me moria tartrate 50 5-30 tab, PO, l mg oral 20:14: Q12H, # Siler tablet 00 180 tab, 1 Refill(s), Pharmacy: [place] [id number] metoprolol Yes 50 mg = 1 Me moria tartrate 50 5-30 tab, PO, l mg oral 20:14: Q12H, # Siler tablet 00 180 tab, 1 Refill(s), Pharmacy: [place] [id number] amLODIPine Yes 10 mg = 1 Me moria 10 mg oral 5-30 tab, PO, l tablet 20:13: Daily, # Siler 00 90 tab, 0 Refill(s), Pharmacy: [place] [id number] amLODIPine Yes 10 mg = 1 Me moria 10 mg oral 5-30 tab, PO, l tablet 20:13: Daily, # Siler 00 90 tab, 0 Refill(s), Pharmacy: [place] [id number] amLODIPine Yes 10 mg = 1 Me moria 10 mg oral 5-30 tab, PO, l tablet 20:13: Daily, # Siler 00 90 tab, 0 Refill(s), Pharmacy: [place] [id number] amLODIPine Yes 10 mg = 1 Me moria 10 mg oral 5-30 tab, PO, l tablet 20:13: Daily, # Momo 00 90 tab, 0 Refill(s), Pharmacy: [facility] 546 Fentanyl Yes Notes: Memoria 4-05 (Same as: l 15:40: Sublimaze) Preservati ve free. Flumazenil Yes Notes: Memor ia 4-05 (Same as: l 15:40: Romazicon) Naloxone Yes Notes: Memoria 4-05 Same as l 15:40: Narcan Momo 00 Acetaminoph No 1,000 mg, M emoria en 4-05 Route: l 15:40: IVPB, Drug Momo 00 form: INJ, ONCE, Dosing Weight 103.182, kg, PRN Pain Score 1-3, Start date: 01/01/18 10:40:00 CDT Ondansetron 20180 No 4 mg, Memor ia 4-05 Route: l 15:40: IVP, ONCE, Siler 00 Dosing Weight 103.182, kg, PRN Nausea & Vomiting, Start date: 01/01/18 10:40:00 CDT Fentanyl 2017-0 Yes Notes: Memoria 4-05 (Same as: l 15:40: Sublimaze) Momo Preservati ve free. Flumazenil Yes Notes: Memor ia 4-05 (Same as: l 15:40: Romazicon) Naloxone Yes Notes: Memoria 4-05 Same as l 15:40: Narcan Acetaminoph No 1,000 mg, M emoria en 405 Route: l 15:40: IVPB, Drug Siler form: INJ, ONCE, Dosing Weight 103.182, kg, PRN Pain Score 1-3, Start date: 01/01/18 10:40:00 CDT Ondansetron 0 No 4 mg, Memor ia 4-05 Route: l 15:40: IVP, ONCE, Dosing Weight 103.182, kg, PRN Nausea & Vomiting, Start date: 01/01/18 10:40:00 CDT Fentanyl 2018-0 Yes Notes: Memoria 4-05 (Same as: l 15:40: Sublimaze) Momo Preservati ve free. Flumazenil 2017-0 Yes Notes: Memor ia 4-05 (Same as: l 15:40: Romazicon) Momo 00 Naloxone 2017-0 Yes Notes: Memoria 4-05 Same as l 15:40: Narcan Momo 00 Acetaminoph 0 No 1,000 mg, M emoria en 4-05 Route: l 15:40: IVPB, Drug Momo 00 form: INJ, ONCE, Dosing Weight 103.182, kg, PRN Pain Score 1-3, Start date: 01/01/18 10:40:00 CDT Ondansetron 2018-0 No 4 mg, Memor ia 4-05 Route: [...] 1-3, Start date: 01/01/18 10:40:00 CDT Ondansetron 2018-0 No 4 mg, Memor ia 4-05 Route: l 15:40: IVP, ONCE, Dosing Weight 103.182, kg, PRN Nausea & Vomiting, Start date: 01/01/18 10:40:00 CDT protamine 0 No Route: IV, Me moria (ANES) 4- Drug form: l 15:27: INJ, ONCE, Stop date: 01/01/18 10:27:00 CDT ondansetron 2017-0 No Route: IV, Memoria (ANES) 4-05 Drug form: l 15:27: INJ, ONCE, Stop date: 01/01/18 10:27:00 CDT protamine 2017-0 No Route: IV, Me moria (ANES) 4-05 Drug form: l 15:27: INJ, ONCE, Stop date: 01/01/18 10:27:00 CDT ondansetron 2018-0 No Route: IV, Memoria (ANES) 4-05 Drug form: l 15:27: INJ, ONCE, Stop date: 01/01/18 10:27:00 CDT protamine 2017-0 No Route: IV, Me moria (ANES) 4- Drug form: l 15:27: INJ, ONCE, Siler 00 Stop date: 01/01/18 10:27:00 CDT ondansetron 0 No Route: IV, Memoria (ANES) 4 Drug form: l 15:27: INJ, ONCE, Stop date: 01/01/18 10:27:00 CDT protamine 2017-0 No Route: IV, Me moria (ANES) 4 Drug form: l 15:27: INJ, ONCE, Stop date: 01/01/18 10:27:00 CDT ondansetron No Route: IV, Memoria (ANES) 4 Drug form: l 15:27: INJ, ONCE, Stop date: 01/01/18 10:27:00 CDT heparin 2017-0 No Route: IV, Tico jessi (ANES) 01-01 Drug form: l 14:49: INJ, ONCE, Stop date: 01/01/18 9:49:00 CDT heparin 0 No Route: IV, Tico jessi (ANES) 4 Drug form: l 14:49: INJ, ONCE, Stop date: 01/01/18 9:49:00 CDT heparin 2017-0 No Route: IV, Tico jessi (ANES) 4- Drug form: l 14:49: INJ, ONCE, Stop date: 01/01/18 9:49:00 CDT heparin 2017-0 No Route: IV, Tico jessi (ANES) 4- Drug form: l 14:49: INJ, ONCE, Momo 00 Stop date: 01/01/18 9:49:00 CDT glycopyrrol 2017-0 No Route: IV, Memoria ate (ANES) 4 Drug form: l 14:34: INJ, ONCE, Siler 00 Stop date: 01/01/18 9:34:00 CDT glycopyrrol 2017-0 No Route: IV, Memoria ate (ANES) 4 Drug form: l 14:34: INJ, ONCE, Momo 00 Stop date: 01/01/18 9:34:00 CDT glycopyrrol 2018-0 No Route: IV, Memoria ate (ANES) 4-05 Drug form: l 14:34: INJ, ONCE, Momo Stop date: 01/01/18 9:34:00 CDT glycopyrrol 2018-0 No Route: IV, Memoria ate (ANES) 4-05 Drug form: l 14:34: INJ, ONCE, Siler Stop date: 01/01/18 9:34:00 CDT propofol 2018-0 No Route: IV, Mem oria (ANES) 4-05 Drug form: l 14:04: INJ, ONCE, Momo Stop date: 01/01/18 9:04:00 CDT lidocaine 2018-0 No Route: IV, Me moria (ANES) 4-05 Drug form: l 14:04: INJ, ONCE, Momo 00 Stop date: 01/01/18 9:04:00 CDT midazolam 2018-0 No Route: IV, Me moria (ANES) 4-05 Drug form: l 14:04: SOLN, Siler ONCE, Stop date: 01/01/18 9:04:00 CDT fentaNYL 2018-0 No Route: IV, Mem oria (ANES) 4-05 Drug form: l 14:04: INJ, ONCE, Momo Stop date: 01/01/18 9:04:00 CDT propofol 2018-0 No Route: IV, Mem oria (ANES) 4-05 Drug form: l 14:04: INJ, ONCE, Siler Stop date: 01/01/18 9:04:00 CDT lidocaine 2018-0 [...] 4-05 Drug form: l 14:04: INJ, ONCE, Siler 00 Stop date: 01/01/18 9:04:00 CDT lidocaine 2018-0 No Route: IV, Me moria (ANES) 4-05 Drug form: l 14:04: INJ, ONCE, Momo 00 Stop date: 01/01/18 9:04:00 CDT midazolam 2018-0 No Route: IV, Me moria (ANES) 4-05 Drug form: l 14:04: SOLN, Siler 00 ONCE, Stop date: 01/01/18 9:04:00 CDT fentaNYL 2018-0 No Route: IV, Mem oria (ANES) 4-05 Drug form: l 14:04: INJ, ONCE, Siler Stop date: 01/01/18 9:04:00 CDT propofol 2018-0 [...] Memoria 4-05 Same as: l 14:00: Renvela Siler multivitami 2017-0 Yes Notes: Tico jessi n 4-05 (Same l 14:00: as:Thera) Siler 00 WASTE: F/P - Black; E - Municipal Trash Bin Take with food. Renvela 0 Yes Notes: Memoria 4-05 Same as: l 14:00: Renvela Momo multivitami 2018-0 Yes Notes: Tico jessi n 4-05 (Same l 14:00: as:Thera) Momo WASTE: F/P - Black; E - Municipal Trash Bin Take with food. Renvela Yes Notes: Memoria 4-05 Same as: l 14:00: Renvela Momo 00 multivitami Yes Notes: Tico jessi n 4-05 (Same l 14:00: as:Thera) Siler WASTE: F/P - Black; E - Municipal Trash Bin Take with food. Renvela Yes Notes: Memoria 4-05 Same as: l 14:00: Renvela Siler multivitami Yes Notes: Tico jessi n 4-05 (Same l 14:00: as:Thera) Siler WASTE: F/P - Black; E - Municipal Trash Bin Take with food. phenylephri No Route: IV, Memoria ne (ANES) 4-05 Drug form: l 100 13:44: INJ, Start Momo microgram 00 date: 01/01/18 8:44:00 CDT, Stop date: 01/01/18 9:44:00 CDT phenylephri No Route: IV, Memoria ne (ANES) 4-05 Drug form: l 100 13:44: INJ, Start Momo microgram 00 date: 01/01/18 8:44:00 CDT, Stop date: 01/01/18 9:44:00 CDT phenylephri No Route: IV, Memoria ne (ANES) 4-05 Drug form: l 100 13:44: INJ, Start Siler microgram 00 date: 01/01/18 8:44:00 CDT, Stop date: 01/01/18 9:44:00 CDT phenylephri No Route: IV, Memoria ne (ANES) 4-05 Drug form: l 100 13:44: INJ, Start Siler microgram 00 date: 01/01/18 8:44:00 CDT, Stop date: 01/01/18 9:44:00 CDT Zofran No Notes: Memoria 4-05 (Same as: l 13:43: Zofran) Momo 00 MEDICATION WASTE Product Size: 4 mg Product Wasted: ___ mg NS 0.45% IV No 1,000 mL, M emoria 1,000 mL 01-01 Rate: 50 l 13:43: ml/hr, Momo 00 Infuse over: 20 hr, Route: IV, Dosing Weight 103.182 kg, Total Volume: 1,000, Start date: 01/01/18 8:43:00 CDT, Duration: 30 day, Stop date: 01/31/18 8:42:00 CDT, 2.24, m2 Morphine No Notes: Memoria 4-05 (Same l 13:43: as:MORPhin Momo 00 e Sulfate) Acetaminoph No Notes: Do M emoria en 4-05 not exceed l 13:43: 4 gm/day. Siler (Same as: Tylenol) acetaminoph No Notes: Do M emoria en-codeine 4-05 not exceed l #3 13:43: 4gm/day of Momo 00 acetaminop hen. (Same as: Tylenol with Codeine # 3) Acetaminoph No Notes: Tico jessi en 325 MG / -05 (Same as: l Hydrocodone 13:43: Camilla Joanna nn Bitartrate 00 325/5) Do 5 MG Oral not exceed Tablet 4gm/day of acetaminop hen. Zofran No Notes: Memoria 4-05 (Same as: l 13:43: Zofran) Siler MEDICATION WASTE Product Size: 4 mg Product Wasted: ___ mg NS 0.45% IV No 1,000 mL, M emoria 1,000 mL 05 Rate: 50 l 13:43: ml/hr, Siler 00 Infuse over: 20 hr, Route: IV, Dosing Weight 103.182 kg, Total Volume: 1,000, Start date: 01/01/18 8:43:00 CDT, Duration: 30 day, Stop date: 01/31/18 8:42:00 CDT, 2.24, m2 Morphine No Notes: Memoria 4-05 (Same l 13:43: as:MORPhin Siler 00 e Sulfate) Acetaminoph No Notes: Do M emoria en 4-05 not exceed l 13:43: 4 gm/day. Momo (Same as: Tylenol) acetaminoph No Notes: Do M emoria en-codeine 4-05 not exceed l #3 13:43: 4gm/day of Momo acetaminop hen. (Same as: Tylenol with Codeine # 3) Acetaminoph No Notes: Tico jessi en 325 MG / 4-05 (Same as: l Hydrocodone 13:43: Camilla Joanna nn Bitartrate 00 325/5) Do 5 MG Oral not exceed Tablet 4gm/day of acetaminop hen. Zofran No Notes: Memoria 4-05 (Same as: l 13:43: Zofran) Momo 00 MEDICATION WASTE Product Size: 4 mg Product Wasted: ___ mg NS 0.45% IV No 1,000 mL, M emoria 1,000 mL - Rate: 50 l 13:43: ml/hr, Infuse over: 20 hr, Route: IV, Dosing Weight 103.182 kg, Total Volume: 1,000, Start date: 01/01/18 8:43:00 CDT, Duration: 30 day, Stop date: 01/31/18 8:42:00 CDT, 2.24, m2 Morphine No Notes: Memoria 4-05 (Same l 13:43: as:MORPhin e Sulfate) Acetaminoph [...] / 4-05 (Same as: l Hydrocodone 13:43: Camilla Joanna nn Bitartrate 00 325/5) Do 5 [...] / 01-01 (Same as: l Hydrocodone 13:43: Camilla Joanna nn Bitartrate 00 325/5) Do 5 [...] CDT, Stop date: 01/01/18 9:39:00 CDT vancomycin 2018-0 No Route: IV, Jossy coker (ANES) 01-01 Drug form: l mg 13:39: INJ, Start date: 01/01/18 8:39:00 CDT, Stop date: 01/01/18 9:39:00 CDT Sodium 2018-0 No Route: IV, Memor ia Chloride 4-05 Total l 0.9% IV 13:31: Volume: Momo (ANES) 500 00 500, Start mL date: 01/01/18 8:31:00 CDT, Stop date: 01/01/18 9:31:00 CDT Sodium 2018-0 No Route: IV, Memor ia Chloride 4-05 Total l 0.9% IV 13:31: Volume: Momo (ANES) 500 00 500, Start mL date: 01/01/18 8:31:00 CDT, Stop date: 01/01/18 9:31:00 CDT Sodium 2018-0 No Route: IV, Memor ia Chloride 4-05 Total l 0.9% IV 13:31: Volume: Momo (ANES) 500 00 500, Start mL date: 01/01/18 8:31:00 CDT, Stop date: 01/01/18 9:31:00 CDT Sodium 2018-0 No Route: IV, Memor ia Chloride 4-05 Total l 0.9% IV 13:31: Volume: Siler (ANES) 500 00 500, Start mL date: 01/01/18 8:31:00 CDT, Stop date: 01/01/18 9:31:00 CDT Vitamin 2018-0 No 1 tab, Memoria B-100 2-16 Route: PO, l 15:00: Dosing Weight 100.057, kg, Daily, Start date: 11/14/17 9:00:00 ENTRY LEVEL ELECTRICAL ENGINEER, Duration: 30 day, Stop date: 12/13/17 9:00:00 CDT Vitamin 2018-0 No 1 tab, Memoria B-100 2-16 Route: PO, l 15:00: Dosing Momo 00 Weight 100.057, kg, Daily, Start date: 11/14/17 9:00:00 ENTRY LEVEL ELECTRICAL ENGINEER, Duration: 30 day, Stop date: 12/13/17 9:00:00 CDT Vitamin 2017-0 No 1 tab, Memoria B-100 2-16 Route: PO, l 15:00: Dosing Momo Weight 100.057, kg, Daily, Start date: 11/14/17 9:00:00 ENTRY LEVEL ELECTRICAL ENGINEER, Duration: 30 day, Stop date: 12/13/17 9:00:00 CDT Vitamin 0 No 1 tab, Memoria B-100 2-16 Route: PO, l 15:00: Dosing Momo Weight 100.057, kg, Daily, Start date: 11/14/17 9:00:00 ENTRY LEVEL ELECTRICAL ENGINEER, Duration: 30 day, Stop date: 12/13/17 9:00:00 CDT Renvela No Notes: Memoria 2-15 Same as: l 23:00: Renvela Siler Renvela No Notes: Memoria 2-15 Same as: l 23:00: Renvela Momo Renvela No Notes: Memoria 2-15 Same as: l 23:00: Renvela Momo Renvela No Notes: Memoria 2-15 Same as: l 23:00: Renvela Siler Fentanyl No Notes: Memoria 2-15 (Same as: [...] 4 mg Product Wasted: ___ mg Fentanyl 2018- No Notes: Memoria 2-15 (Same as: l 21:23: Sublimaze) Siler Preservati ve free. Naloxone No Notes: Memoria 2-15 Same as l 21:23: Narcan Siler Flumazenil No Notes: Memor ia 2-15 (Same as: l 21:23: Romazicon) Siler Acetaminoph No Notes: Tico jessi en 2-15 Infuse l 21:23: over 15 Momo 00 minutes Do not exceed 4gm/day of acetaminop hen MEDICATION WASTE Product Size: 1000 mg Product Wasted: ___ mg Ondansetron 2018- No Notes: Tico jessi 2-15 (Same as: l 21:23: Zofran) Siler 00 MEDICATION WASTE Product Size: 4 mg Product Wasted: ___ mg Fentanyl 2017- No Notes: Memoria 2-15 (Same as: l 21:23: Sublimaze) Siler Preservati ve free. Naloxone No Notes: Memoria 2-15 Same as l 21:23: Narcan Siler Flumazenil No Notes: Memor ia 2-15 (Same as: l 21:23: Romazicon) Momo Acetaminoph No Notes: Tico jessi en 2-15 Infuse l 21:23: over 15 Momo 00 minutes Do not exceed 4gm/day of acetaminop hen MEDICATION WASTE Product Size: 1000 mg Product Wasted: ___ mg Ondansetron 2018 No Notes: Tico jessi 2-15 (Same as: l 21:23: Zofran) Siler 00 MEDICATION WASTE Product Size: 4 mg Product Wasted: ___ mg Fentanyl 2017- No Notes: Memoria 2-15 (Same as: l 21:23: Sublimaze) Momo Preservati ve free. Naloxone No Notes: Memoria 2-15 Same as l 21:23: Narcan Momo Flumazenil No Notes: Memor ia 2-15 (Same as: l 21:23: Romazicon) Siler 00 Acetaminoph 2017-0 No Notes: Tico jessi en 2-15 Infuse l 21:23: over 15 minutes Do not exceed 4gm/day of acetaminop hen MEDICATION WASTE Product Size: 1000 mg Product Wasted: ___ mg Ondansetron 2018 No Notes: Tico jessi 2-15 (Same as: l 21:23: Zofran) MEDICATION WASTE Product Size: 4 mg Product Wasted: ___ mg ondansetron 2018 No Route: IV, Memoria (ANES) 2-15 Drug form: l 20:57: INJ, ONCE, Stop date: 11/13/17 14:57:00 ENTRY LEVEL ELECTRICAL ENGINEER ondansetron 2018-0 No Route: IV, Memoria (ANES) 2-15 Drug form: l 20:57: INJ, ONCE, Stop date: 11/13/17 14:57:00 ENTRY LEVEL ELECTRICAL ENGINEER ondansetron 2018-0 No Route: IV, Memoria (ANES) 2-15 Drug form: l 20:57: INJ, ONCE, Stop date: 11/13/17 14:57:00 ENTRY LEVEL ELECTRICAL ENGINEER ondansetron 2018-0 No Route: IV, Memoria (ANES) 2-15 Drug form: l 20:57: INJ, ONCE, Stop date: 11/13/17 14:57:00 ENTRY LEVEL ELECTRICAL ENGINEER ePHEDrine 2018 No Route: IV, Me moria (ANES) 2-15 Drug form: l 20:44: INJ, ONCE, Stop date: 11/13/17 14:44:00 ENTRY LEVEL ELECTRICAL ENGINEER ePHEDrine 2018-0 No Route: IV, Me moria (ANES) 2-15 Drug form: l 20:44: INJ, ONCE, Stop date: 11/13/17 14:44:00 ENTRY LEVEL ELECTRICAL ENGINEER ePHEDrine 2018-0 No Route: IV, Me moria (ANES) 2-15 Drug form: l 20:44: INJ, ONCE, Stop date: 11/13/17 14:44:00 ENTRY LEVEL ELECTRICAL ENGINEER ePHEDrine No Route: IV, Me moria (ANES) 2-15 Drug form: l 20:44: INJ, ONCE, Stop date: 11/13/17 14:44:00 ENTRY LEVEL ELECTRICAL ENGINEER propofol 2018-0 No Route: IV, Mem oria (ANES) 2-15 Drug form: l 20:29: INJ, ONCE, Momo 00 Stop date: 11/13/17 14:29:00 ENTRY LEVEL ELECTRICAL ENGINEER propofol 2018-0 No Route: IV, Mem oria (ANES) 2-15 Drug form: l 20:29: INJ, ONCE, Stop date: 11/13/17 14:29:00 ENTRY LEVEL ELECTRICAL ENGINEER propofol 2018-0 No Route: IV, Mem oria (ANES) 2-15 Drug form: l 20:29: INJ, ONCE, Stop date: 11/13/17 14:29:00 ENTRY LEVEL ELECTRICAL ENGINEER propofol 2018-0 No Route: IV, Mem oria (ANES) 2-15 Drug form: l 20:29: INJ, ONCE, Stop date: 11/13/17 14:29:00 ENTRY LEVEL ELECTRICAL ENGINEER lidocaine 2018-0 No Route: IV, Me moria (ANES) 2-15 Drug form: l 20:24: INJ, ONCE, Stop date: 11/13/17 14:24:00 ENTRY LEVEL ELECTRICAL ENGINEER fentaNYL 2018-0 No Route: IV, Mem oria (ANES) 2-15 Drug form: l 20:24: INJ, ONCE, Stop date: 11/13/17 14:24:00 ENTRY LEVEL ELECTRICAL ENGINEER midazolam 2018-0 No Route: IV, Me moria (ANES) 2-15 Drug form: l 20:24: SOLN, Momo ONCE, Stop date: 11/13/17 14:24:00 ENTRY LEVEL ELECTRICAL ENGINEER lidocaine 2018-0 No Route: IV, Me moria (ANES) 2-15 Drug form: l 20:24: INJ, ONCE, Stop date: 11/13/17 14:24:00 ENTRY LEVEL ELECTRICAL ENGINEER fentaNYL 2018-0 No Route: IV, Mem oria (ANES) 2-15 Drug form: l 20:24: INJ, ONCE, Stop date: 11/13/17 14:24:00 ENTRY LEVEL ELECTRICAL ENGINEER midazolam 2018-0 No Route: IV, Me moria (ANES) 2-15 Drug form: l 20:24: SOLN, Momo ONCE, Stop date: 11/13/17 14:24:00 ENTRY LEVEL ELECTRICAL ENGINEER lidocaine 2018-0 No Route: IV, Me moria (ANES) 2-15 Drug form: l 20:24: INJ, ONCE, Siler 00 Stop date: 11/13/17 14:24:00 ENTRY LEVEL ELECTRICAL ENGINEER fentaNYL 2018-0 No Route: IV, Mem oria (ANES) 2-15 Drug form: l 20:24: INJ, ONCE, Momo 00 Stop date: 11/13/17 14:24:00 ENTRY LEVEL ELECTRICAL ENGINEER midazolam 2018-0 No Route: IV, Me moria (ANES) 2-15 Drug form: l 20:24: SOLN, Siler 00 ONCE, Stop date: 11/13/17 14:24:00 ENTRY LEVEL ELECTRICAL ENGINEER lidocaine 2018-0 No Route: IV, Me moria (ANES) 2-15 Drug form: l 20:24: INJ, ONCE, Momo Stop date: 11/13/17 14:24:00 ENTRY LEVEL ELECTRICAL ENGINEER fentaNYL 2018-0 No Route: IV, Mem oria (ANES) 2-15 Drug form: l 20:24: INJ, ONCE, Momo Stop date: 11/13/17 14:24:00 ENTRY LEVEL ELECTRICAL ENGINEER midazolam 2018-0 No Route: IV, Me moria (ANES) 2-15 Drug form: l 20:24: SOLN, Momo 00 ONCE, Stop date: 11/13/17 14:24:00 ENTRY LEVEL ELECTRICAL ENGINEER phenylephri 2018-0 No Route: IV, Memoria ne (ANES) 2-15 Drug form: l 100 20:07: INJ, Start Momo microgram 00 date: 11/13/17 14:07:00 ENTRY LEVEL ELECTRICAL ENGINEER, Stop date: 11/13/17 15:07:00 ENTRY LEVEL ELECTRICAL ENGINEER phenylephri 2018-0 No Route: IV, Memoria ne (ANES) 2-15 Drug form: l 100 20:07: INJ, Start Momo microgram 00 date: 11/13/17 14:07:00 ENTRY LEVEL ELECTRICAL ENGINEER, Stop date: 11/13/17 15:07:00 ENTRY LEVEL ELECTRICAL ENGINEER phenylephri 2018-0 No Route: IV, Memoria ne (ANES) 2-15 Drug form: l 100 20:07: INJ, Start Siler microgram 00 date: 11/13/17 14:07:00 ENTRY LEVEL ELECTRICAL ENGINEER, Stop date: 11/13/17 15:07:00 ENTRY LEVEL ELECTRICAL ENGINEER phenylephri 2018-0 No Route: IV, Memoria ne (ANES) 11-13 Drug form: l 100 20:07: INJ, Start Momo date: 11/13/17 14:07:00 ENTRY LEVEL ELECTRICAL ENGINEER, Stop date: 11/13/17 15:07:00 ENTRY LEVEL ELECTRICAL ENGINEER Cefazolin 2018-0 No Notes: Memori a 215 (Same As: l 20:00: Ancef, Momo 00 Kefzol) MEDICATION WASTE Product Size: 1000 mg Product Wasted: ___ mg vancomycin No Route: IV, M emoria (ANES) 11-13 Drug form: l mg 20:00: INJ, Start Siler 00 date: 11/13/17 14:00:00 ENTRY LEVEL ELECTRICAL ENGINEER, Stop date: 11/13/17 15:00:00 ENTRY LEVEL ELECTRICAL ENGINEER Cefazolin 2018-0 No Notes: Memori a 15 (Same As: l 20:00: Ancef, Siler 00 Kefzol) MEDICATION WASTE Product Size: 1000 mg Product Wasted: ___ mg vancomycin 0 No Route: IV, Jossy emoria (ANES) 11-13 Drug form: l mg 20:00: INJ, Start Momo 00 date: 11/13/17 14:00:00 ENTRY LEVEL ELECTRICAL ENGINEER, Stop date: 11/13/17 15:00:00 ENTRY LEVEL ELECTRICAL ENGINEER Cefazolin 2018-0 No Notes: Memori a 15 (Same As: l 20:00: Ancef, Siler 00 Kefzol) MEDICATION WASTE Product Size: 1000 mg Product Wasted: ___ mg vancomycin 0 No Route: IV, M emoria (ANES) 11-13 Drug form: l mg 20:00: INJ, Start Momo 00 date: 11/13/17 14:00:00 ENTRY LEVEL ELECTRICAL ENGINEER, Stop date: 11/13/17 15:00:00 ENTRY LEVEL ELECTRICAL ENGINEER Cefazolin 2018-0 No Notes: Memori a 2-15 (Same As: l 20:00: Ancef, Momo 00 Kefzol) MEDICATION WASTE Product Size: 1000 mg Product Wasted: ___ mg vancomycin 0 No Route: IV, M emoria (ANES) 11-13 Drug form: l mg 20:00: INJ, Start Momo 00 date: 11/13/17 14:00:00 ENTRY LEVEL ELECTRICAL ENGINEER, Stop date: 11/13/17 15:00:00 ENTRY LEVEL ELECTRICAL ENGINEER Restoril No Notes: Memoria 2-15 (Same As: l 19:59: Restoril) Siler 00 Restoril No Notes: Memoria 2-15 (Same As: l 19:59: Restoril) Momo 00 Restoril No Notes: Memoria 2-15 (Same As: l 19:59: Restoril) Momo 00 Restoril No Notes: Memoria 2-15 (Same As: l 19:59: Restoril) Sodium No Route: IV, Memor ia Chloride 2-15 Total l 0.9% IV 19:54: Volume: Siler (ANES) 500 00 500, Start mL date: 11/13/17 13:54:00 ENTRY LEVEL ELECTRICAL ENGINEER, Stop date: 11/13/17 14:54:00 ENTRY LEVEL ELECTRICAL ENGINEER Sodium No Route: IV, Memor ia Chloride 2-15 Total l 0.9% IV 19:54: Volume: Siler (ANES) 500 00 500, Start mL date: 11/13/17 13:54:00 ENTRY LEVEL ELECTRICAL ENGINEER, Stop date: 11/13/17 14:54:00 ENTRY LEVEL ELECTRICAL ENGINEER Sodium No Route: IV, Memor ia Chloride 2-15 Total l 0.9% IV 19:54: Volume: Momo (ANES) 500 00 500, Start mL date: 11/13/17 13:54:00 ENTRY LEVEL ELECTRICAL ENGINEER, Stop date: 11/13/17 14:54:00 ENTRY LEVEL ELECTRICAL ENGINEER Sodium No Route: IV, Memor ia Chloride 2-15 Total l 0.9% IV 19:54: Volume: Siler (ANES) 500 00 500, Start mL date: 11/13/17 13:54:00 ENTRY LEVEL ELECTRICAL ENGINEER, Stop date: 11/13/17 14:54:00 ENTRY LEVEL ELECTRICAL ENGINEER acetaminoph No Notes: Do M emoria en-codeine 2-15 not exceed l #3 19:23: 4gm/day of acetaminop hen. (Same as: Tylenol with Codeine # 3) Acetaminoph No Notes: Do M emoria en 2-15 not exceed l 19:23: 4 gm/day. Siler 00 (Same as: Tylenol) Morphine No Notes: Memoria 2-15 (Same l 19:23: as:MORPhin Momo 00 e Sulfate) Acetaminoph No Notes: Do M emoria en 325 MG / 2-15 not exceed l Hydrocodone 19:23: 4gm/day of Momo Bitartrate 00 acetaminop 10 MG Oral hen. (Same Tablet as: Camilla 325/10) Acetaminoph No Notes: Tico jessi en 325 MG / 2-15 (Same as: l Hydrocodone 19:23: Camilla Joanna nn Bitartrate 00 325/5) Do 5 MG Oral not exceed Tablet 4gm/day of acetaminop hen. NS 0.45% IV No 1,000 mL, M emoria 1,000 mL 2-15 Rate: 50 l 19:23: ml/hr, Siler 00 Infuse over: 20 hr, Route: IV, Dosing Weight 100.057 kg, Total Volume: 1,000, Start date: 11/13/17 13:23:00 ENTRY LEVEL ELECTRICAL ENGINEER, Duration: 30 day, Stop date: 12/13/17 13:22:00 CDT, 2.2, m2 Zofran No Notes: Memoria 2-15 (Same as: l 19:23: Zofran) Siler 00 MEDICATION WASTE Product Size: 4 mg Product Wasted: ___ mg acetaminoph No Notes: Do M emoria en-codeine 2-15 not exceed l #3 19:23: 4gm/day of Siler acetaminop hen. (Same as: Tylenol with Codeine # 3) Acetaminoph No Notes: Do M emoria en 2-15 not exceed l 19:23: 4 gm/day. Momo 00 (Same as: Tylenol) Morphine No Notes: Memoria 2-15 (Same l 19:23: as:MORPhin Momo 00 e Sulfate) Acetaminoph No Notes: Do M emoria en 325 MG / 2-15 not exceed l Hydrocodone 19:23: 4gm/day of Siler Bitartrate 00 acetaminop 10 MG Oral hen. (Same Tablet as: Camilla 325/10) Acetaminoph No Notes: Tico jessi en 325 MG / 2-15 (Same as: l Hydrocodone 19:23: Camilla Joanna nn Bitartrate 00 325/5) Do 5 MG Oral not exceed Tablet 4gm/day of acetaminop hen. NS 0.45% IV No 1,000 mL, M emoria 1,000 mL 2-15 Rate: 50 l 19:23: ml/hr, Siler 00 Infuse over: 20 hr, Route: IV, Dosing Weight 100.057 kg, Total Volume: 1,000, Start date: 11/13/17 13:23:00 ENTRY LEVEL ELECTRICAL ENGINEER, Duration: 30 day, Stop date: 12/13/17 13:22:00 CDT, 2.2, m2 Zofran No Notes: Memoria 2-15 (Same as: l 19:23: Zofran) Siler MEDICATION WASTE Product Size: 4 mg Product Wasted: ___ mg acetaminoph No Notes: Do M emoria en-codeine 2-15 not exceed l #3 19:23: 4gm/day of Momo acetaminop hen. (Same as: Tylenol with Codeine # 3) Acetaminoph No Notes: Do M emoria en 2-15 not exceed l 19:23: 4 gm/day. Siler 00 (Same as: Tylenol) Morphine No Notes: Memoria 2-15 (Same l 19:23: as:MORPhin Siler 00 e Sulfate) Acetaminoph No Notes: Do M emoria en 325 MG / 2-15 not exceed l Hydrocodone 19:23: 4gm/day of Momo Bitartrate 00 acetaminop 10 MG Oral hen. (Same Tablet as: Camilla 325/10) Acetaminoph No Notes: Tico jessi en 325 MG / 2-15 (Same as: l Hydrocodone 19:23: Camilla Joanna nn Bitartrate 00 325/5) Do 5 MG Oral not exceed Tablet 4gm/day of acetaminop hen. NS 0.45% IV No 1,000 mL, M emoria 1,000 mL 2-15 Rate: 50 l 19:23: ml/hr, Siler 00 Infuse over: 20 hr, Route: IV, Dosing Weight 100.057 kg, Total Volume: 1,000, Start date: 11/13/17 13:23:00 ENTRY LEVEL ELECTRICAL ENGINEER, Duration: 30 day, Stop date: 12/13/17 13:22:00 CDT, 2.2, m2 Zofran No Notes: Memoria 2-15 (Same as: l 19:23: Zofran) Siler 00 MEDICATION WASTE Product Size: 4 mg [...] Notes: Memoria 2-15 (Same l 19:23: as:MORPhin Siler 00 e Sulfate) Acetaminoph No Notes: Do M emoria en 325 MG / 2-15 not exceed l Hydrocodone 19:23: 4gm/day of Momo Bitartrate 00 acetaminop 10 MG Oral hen. (Same Tablet as: Camilla 325/10) Acetaminoph No Notes: Tico jessi en 325 MG / 2-15 (Same as: l Hydrocodone 19:23: Camilla Joanna nn Bitartrate 00 325/5) Do 5 MG Oral not exceed Tablet 4gm/day of acetaminop hen. NS 0.45% IV No 1,000 mL, M emoria 1,000 mL 2-15 Rate: 50 l 19:23: ml/hr, Siler 00 Infuse over: 20 hr, Route: IV, Dosing Weight 100.057 kg, Total Volume: 1,000, Start date: 11/13/17 13:23:00 ENTRY LEVEL ELECTRICAL ENGINEER, Duration: 30 day, Stop date: 12/13/17 13:22:00 CDT, 2.2, m2 Zofran 2018-0 No Notes: Memoria 2-15 (Same as: l 19:23: Zofran) Siler 00 MEDICATION WASTE Product Size: 4 mg Product Wasted: ___ mg sevelamer 2018- Yes 1,600 mg = Me moria carbonate [...] tablet po if snack., 0 Refill(s) sevelamer 0 Yes 1,600 mg = Me moria carbonate [...] tablet po if snack., 0 Refill(s) sevelamer 0 Yes 1,600 mg = Me moria carbonate [...] Memoria B-100 06-27 (Same l 14:00: as:Thera) Momo 00 WASTE: F/P - Black; E - Municipal Trash Bin Take with food. Vitamin No Notes: Memoria B-100 06-27 (Same l 14:00: as:Thera) Momo 00 WASTE: F/P - Black; E - Municipal Trash Bin Take with food. Vitamin No Notes: Memoria B-100 06-27 (Same l 14:00: as:Thera) Momo 00 WASTE: F/P - Black; E - Municipal Trash Bin Take with food. Vitamin No Notes: Memoria B-100 06-27 (Same l 14:00: as:Thera) Siler 00 WASTE: F/P - Black; E - Municipal Trash Bin Take with food. Renvela No Notes: Memoria 06-26 Same as: l 18:00: Renvela Siler 00 Renvela No Notes: Memoria 06-26 Same as: l 18:00: Renvela Siler 00 Renvela No Notes: Memoria 06-26 Same as: l 18:00: Renvela Siler 00 Renvela No Notes: Memoria 06-26 Same [...] CDT, Stop date: 06/26/17 12:24:00 CDT Ofirmev 0 No 1,000 mg, Memor ia 06-26 Route: IV, l 17:24: ONCE, Dosing Weight 100, kg, Start date: 06/26/17 12:24:00 CDT, Stop date: 06/26/17 12:24:00 CDT protamine 0 No Route: IV, Me [...] ONCE, Stop date: 06/26/17 11:53:00 CDT glycopyrrol 2016-0 No Route: IV, Memoria ate (ANES) 06-26 Drug form: l 16:53: INJ, ONCE, Stop date: 06/26/17 11:53:00 CDT protamine 2016-0 No Route: IV, Me moria (ANES) [...] (ANES) 06-26 Drug form: l 16:17: SOLN, Siler 00 ONCE, Stop date: 06/26/17 11:17:00 CDT fentaNYL No Route: IV, Mem oria (ANES) 06-26 Drug form: l 16:17: INJ, ONCE, Momo Stop date: 06/26/17 11:17:00 CDT midazolam No Route: IV, Me moria (ANES) 06-26 Drug form: l 16:17: SOLN, Siler 00 ONCE, Stop date: 06/26/17 11:17:00 CDT fentaNYL No Route: IV, Mem oria (ANES) 06-26 Drug form: l 16:17: INJ, ONCE, Momo Stop date: 06/26/17 11:17:00 CDT midazolam No Route: IV, Me moria (ANES) 06-26 Drug form: l 16:17: SOLN, Momo 00 ONCE, Stop date: 06/26/17 11:17:00 CDT fentaNYL No Route: IV, Mem oria (ANES) 06-26 Drug form: l 16:17: INJ, ONCE, Momo 00 Stop date: 06/26/17 11:17:00 CDT midazolam 0 No Route: IV, Me moria (ANES) 06-26 Drug form: l 16:17: SOLN, Siler 00 ONCE, Stop date: 06/26/17 11:17:00 CDT ePHEDrine No Route: IV, Me moria (ANES) 06-26 Drug form: l 16:12: INJ, ONCE, Momo Stop date: 06/26/17 11:12:00 CDT phenylephri No Route: IV, Memoria ne (ANES) 06-26 Drug form: l 16:12: INJ, ONCE, Momo Stop date: 06/26/17 11:12:00 CDT ePHEDrine 2016-0 No Route: IV, Me moria (ANES) 06-26 Drug form: l 16:12: INJ, ONCE, Stop date: 06/26/17 11:12:00 CDT phenylephri 2016-0 No Route: IV, Memoria ne (ANES) 06-26 Drug form: l 16:12: INJ, ONCE, Stop date: 06/26/17 11:12:00 CDT ePHEDrine 2016-0 No Route: IV, Me moria (ANES) 06-26 Drug form: l 16:12: INJ, ONCE, Stop date: 06/26/17 11:12:00 CDT phenylephri 2016-0 No Route: IV, Memoria ne (ANES) 06-26 Drug form: l 16:12: INJ, ONCE, Stop date: 06/26/17 11:12:00 CDT ePHEDrine 2016-0 No Route: IV, Me moria (ANES) 06-26 Drug form: l 16:12: INJ, ONCE, Stop date: 06/26/17 11:12:00 CDT phenylephri 2016-0 No Route: IV, Memoria ne (ANES) 06-26 Drug form: l 16:12: INJ, ONCE, Stop date: 06/26/17 11:12:00 CDT propofol 2016-0 No Route: IV, Mem oria (ANES) 06-26 Drug form: l 15:57: INJ, ONCE, Stop date: 06/26/17 10:57:00 CDT rocuronium 2016-0 No Route: IV, M emoria (ANES) 06-26 Drug form: l 15:57: INJ, ONCE, Stop date: 06/26/17 10:57:00 CDT propofol 2017-0 No Route: IV, Mem oria (ANES) 06-26 Drug form: l 15:57: INJ, ONCE, Stop date: 06/26/17 10:57:00 CDT rocuronium 2016-0 No Route: IV, M emoria (ANES) 06-26 Drug form: l 15:57: INJ, ONCE, Stop date: 06/26/17 10:57:00 CDT propofol No Route: IV, Mem oria (ANES) 06-26 Drug form: l 15:57: INJ, ONCE, Siler Stop date: 06/26/17 10:57:00 CDT rocuronium No Route: IV, M emoria (ANES) 06-26 Drug form: l 15:57: INJ, ONCE, Momo Stop date: 06/26/17 10:57:00 CDT propofol No Route: IV, Mem oria (ANES) 06-26 Drug form: l 15:57: INJ, ONCE, Siler 00 Stop date: 06/26/17 10:57:00 CDT rocuronium [...] not exceed l Hydrocodone 15:42: 4gm/day of Siler Bitartrate 00 acetaminop 10 MG Oral hen. (Same Tablet as: Camilla 325/10) Acetaminoph No Notes: Tico jessi en 325 MG / 06-26 (Same as: l Hydrocodone 15:42: Camilla Joanna nn Bitartrate 00 325/5) Do 5 [...] Memoria 06-26 (Same as: l 15:42: Zofran) Siler 00 MEDICATION WASTE Product Size: 4 mg Product Wasted: ___ mg Acetaminoph No Notes: Do M emoria en 06-26 not exceed l 15:42: 4 gm/day. Siler 00 (Same as: Tylenol) Morphine No Notes: Memoria 06-26 (Same l 15:42: as:MORPhin Momo 00 e Sulfate) Acetaminoph No Notes: Do M emoria en 325 MG / 06-26 not exceed l Hydrocodone 15:42: 4gm/day of Momo Bitartrate 00 acetaminop 10 MG Oral hen. (Same Tablet as: Camilla 325/10) Acetaminoph No Notes: Tico jessi en 325 MG / 06-26 (Same as: l Hydrocodone 15:42: Camilla Joanna nn Bitartrate 00 325/5) Do 5 [...] Memoria 06-26 (Same as: l 15:42: Zofran) Siler 00 MEDICATION WASTE Product Size: 4 mg Product Wasted: ___ mg Acetaminoph No Notes: Do M emoria en 06-26 not exceed l 15:42: 4 gm/day. Momo 00 (Same as: Tylenol) Morphine No Notes: Memoria 06-26 (Same l 15:42: as:MORPhin Momo 00 e Sulfate) Acetaminoph No Notes: Do M emoria en 325 MG / 06-26 not exceed l Hydrocodone 15:42: 4gm/day of Siler Bitartrate 00 acetaminop 10 MG Oral hen. (Same Tablet as: Camilla 325/10) Acetaminoph No Notes: Tico jessi en 325 MG / 06-26 (Same as: l Hydrocodone 15:42: Camilla Joanna nn Bitartrate 00 325/5) Do 5 [...] 06-26 not exceed l 15:42: 4 gm/day. Siler 00 (Same as: Tylenol) Morphine No Notes: Memoria 06-26 (Same l 15:42: as:MORPhin Momo 00 e Sulfate) Acetaminoph No Notes: Do M emoria en 325 MG / 06-26 not exceed l Hydrocodone 15:42: 4gm/day of Siler Bitartrate 00 acetaminop 10 MG Oral hen. (Same Tablet as: Camilla 325/10) Acetaminoph No Notes: Tico jessi en 325 MG / 06-26 (Same as: l Hydrocodone 15:42: Camilla Joanna nn Bitartrate 00 325/5) Do 5 MG Oral not exceed Tablet 4gm/day of acetaminop hen. sodium No Route: IV, Memor ia chloride 9-28 Total l 0.9% 500 ml 15:24: Volume: Her bertrand INJ (ANES) 00 500, Start date: 06/26/17 10:24:00 CDT, Stop date: 06/26/17 11:24:00 CDT sodium No Route: IV, Memor ia chloride 9-28 Total l 0.9% 500 ml 15:24: Volume: Her bertrand INJ (ANES) 00 500, Start date: 06/26/17 10:24:00 CDT, Stop date: 06/26/17 11:24:00 CDT sodium No Route: IV, Memor ia chloride 9-28 Total l 0.9% 500 ml 15:24: Volume: Her bertrand INJ (ANES) 00 500, Start date: 06/26/17 10:24:00 CDT, Stop date: 06/26/17 11:24:00 CDT sodium No Route: IV, Memor ia chloride 9-28 Total l 0.9% 500 ml 15:24: Volume: Her bertrand INJ (ANES) 00 500, Start date: 06/26/17 10:24:00 CDT, Stop date: 06/26/17 11:24:00 CDT vancomycin No Route: IV, M emoria (ANES) 06-26 Drug form: l (ANES) 15:22: INJ, Start Joanna nn date: 06/26/17 10:22:00 CDT, Stop date: 06/26/17 11:22:00 CDT vancomycin No Route: IV, M emoria (ANES) - Drug form: l (ANES) 15:22: INJ, Start Joanna nn date: 06/26/17 10:22:00 CDT, Stop date: 06/26/17 11:22:00 CDT vancomycin No Route: IV, Jossy emoria (ANES) 06-26 Drug form: l (ANES) 15:22: INJ, Start Joanna nn date: 06/26/17 10:22:00 CDT, Stop date: 06/26/17 11:22:00 CDT vancomycin No Route: IV, Jossy emoria (ANES) 06-26 Drug form: l (ANES) 15:22: INJ, Start Joanna date: 06/26/17 10:22:00 CDT, Stop date: 06/26/17 11:22:00 CDT Cefazolin No Notes: Memori a 06-26 Same as: l 13:00: Ancef Siler Cefazolin No Notes: Memori a 06-26 Same as: l 13:00: Ancef Siler Cefazolin No Notes: Memori a 06-26 Same as: l 13:00: Ancef Siler Cefazolin No Notes: Memori a 06-26 Same as: l 13:00: Ancef Siler Hydralazine Yes Notes: Tico jessi 06-26 (Same as: l 12:58: Apresoline Momo ) Push over 5 minutes Hydralazine Yes Notes: Tico jessi 06-26 (Same as: l 12:58: Apresoline Siler ) Push over 5 minutes Hydralazine Yes Notes: Tico jessi 06-26 (Same as: l 12:58: Apresoline Siler ) Push over 5 minutes Hydralazine Yes Notes: Tico jessi 06-26 (Same as: l 12:58: Apresoline Siler ) Push over 5 minutes Ondansetron No Notes: Tico jessi 06-26 (Same as: l 12:42: Zofran) MEDICATION WASTE Product Size: 4 mg Product Wasted: ___ mg Flumazenil No Notes: Memor ia 06-26 (Same as: l 12:42: Romazicon) Naloxone No Notes: Memoria 06-26 Same as l 12:42: Narcan Fentanyl No Notes: Memoria 06-26 (Same as: l 12:42: Sublimaze) Siler Preservati ve free. Hydromorpho No Notes: Tico jessi ne 06-26 (Same as: l 12:42: Dilaudid) Metoprolol No Notes: Memor ia 06-26 (Same as: l 12:42: Lopressor) Momo Push over 2 minutes Hydralazine No Notes: Tico jessi 06-26 (Same as: l 12:42: Apresoline Momo ) Push over 5 minutes sodium No [...] ia 06-26 (Same as: l 12:42: Lopressor) Siler 00 Push over 2 minutes Hydralazine No Notes: Tico jessi 06-26 (Same as: l 12:42: Apresoline Siler ) Push over 5 minutes sodium No [...] l mg oral 12:39: Q12H, 0 Momo tablet 00 Refill(s) metoprolol Yes 50 mg = 1 Me moria tartrate 50 9-28 tab, PO, l mg oral 12:39: Q12H, 0 Siler tablet 00 Refill(s) metoprolol Yes 50 mg = 1 Me moria tartrate 50 9-28 tab, PO, l mg oral 12:39: Q12H, 0 Momo tablet 00 Refill(s) metoprolol Yes 50 mg = 1 Me moria tartrate 50 9-28 tab, PO, l mg oral 12:39: Q12H, 0 Momo tablet 00 Refill(s) Restoril No Notes: Memoria 06-26 (Same As: l 12:38: Restoril) Restoril No Notes: Memoria 9 (Same As: l 12:38: Restoril) Restoril No Notes: Memoria 9 (Same As: l 12:38: Restoril) Restoril No Notes: Memoria 9- (Same As: l 12:38: Restoril) Vitamin Yes [...] Sublimaze) Preservati ve free. Ondansetron No Notes: Itco jessi 05-15 (Same as: l 18:13: Zofran) 00 MEDICATION WASTE Product Size: 4 mg Product Wasted: ___ mg Acetaminoph No Notes: Tico jessi en 05-15 Infuse l 18:13: over 15 Siler 00 minutes Do not exceed 4gm/day of acetaminop hen MEDICATION WASTE Product Size: 1000 mg Product Wasted: ___ mg Flumazenil No Notes: Memor ia 05-15 (Same as: l 18:13: Romazicon) Naloxone No Notes: Memoria 17 Same as l 18:13: Narcan Fentanyl No Notes: Memoria 05-15 (Same as: l 18:13: Sublimaze) Momo 00 Preservati ve free. Ondansetron No Notes: Tico jessi 817 (Same as: l 18:13: Zofran) Momo 00 [...] Memoria 8-17 Same as l 18:13: Narcan Siler Fentanyl No Notes: Memoria 8-17 (Same as: l 18:13: Sublimaze) Siler Preservati ve free. Ondansetron No Notes: Tico jessi 8-17 (Same as: l 18:13: Zofran) Siler 00 MEDICATION WASTE Product Size: 4 mg Product Wasted: ___ mg Acetaminoph No Notes: Tico jessi en 8-17 Infuse l 18:13: over 15 Momo 00 minutes Do not exceed 4gm/day of acetaminop hen MEDICATION WASTE Product Size: 1000 mg Product Wasted: ___ mg Flumazenil No Notes: Memor ia 8-17 (Same as: l 18:13: Romazicon) Siler Naloxone No Notes: Memoria 8-17 Same as l 18:13: Narcan Momo Fentanyl No Notes: Memoria 8-17 (Same as: l 18:13: Sublimaze) Siler Preservati ve free. Ondansetron No Notes: Tico jessi 8-17 (Same as: l 18:13: Zofran) Momo 00 MEDICATION WASTE Product Size: 4 mg Product Wasted: ___ mg Acetaminoph No Notes: Tico jessi en 817 Infuse l 18:13: over 15 Siler 00 minutes Do not exceed 4gm/day of acetaminop hen MEDICATION WASTE Product Size: 1000 mg Product Wasted: ___ mg Flumazenil No Notes: Memor ia 8-17 (Same as: l 18:13: Romazicon) Momo Naloxone No Notes: Memoria 8-17 Same as l 18:13: Narcan Siler Renvela No Notes: Memoria 8-17 Same as: l 18:00: Renvela Momo Renvela 2017-0 No Notes: Memoria 8 Same as: l 18:00: Renvela Siler Renvela 2017-0 No Notes: Memoria 8 Same as: l 18:00: Renvela Siler Renvela 0 No Notes: Memoria 8 Same as: l 18:00: Renvela Momo ondansetron 0 No Route: IV, Memoria (ANES) 05-15 Drug form: l 17:57: INJ, ONCE, Momo 00 Stop date: 05/15/17 12:57:00 CDT propofol 2017-0 No Route: IV, Mem oria (ANES) 05-15 Drug form: l 17:57: INJ, ONCE, Stop date: 05/15/17 12:57:00 CDT ondansetron 20170 No Route: IV, Memoria (ANES) 05-15 Drug form: l 17:57: INJ, ONCE, Stop date: 05/15/17 12:57:00 CDT propofol 2017-0 No Route: IV, Mem oria (ANES) 05-15 Drug form: l 17:57: INJ, ONCE, Stop date: 05/15/17 12:57:00 CDT ondansetron 20170 No Route: IV, Memoria (ANES) 05-15 Drug form: l 17:57: INJ, ONCE, Stop date: 05/15/17 12:57:00 CDT propofol 2017-0 No Route: IV, Mem oria (ANES) 05-15 Drug form: l 17:57: INJ, ONCE, Stop date: 05/15/17 12:57:00 CDT ondansetron 20170 No Route: IV, Memoria (ANES) 05-15 Drug form: l 17:57: INJ, ONCE, Stop date: 05/15/17 12:57:00 CDT propofol 2017-0 No Route: IV, Mem oria (ANES) 05-15 Drug form: l 17:57: INJ, ONCE, Stop date: 05/15/17 12:57:00 CDT phenylephri 2017-0 No Route: IV, Memoria ne (ANES) 05-15 Drug form: l 17:51: INJ, ONCE, Stop date: 05/15/17 12:51:00 CDT ePHEDrine 2017-0 No Route: IV, Me moria (ANES) 05-15 Drug form: l 17:51: INJ, ONCE, Stop date: 05/15/17 12:51:00 CDT phenylephri 20170 No Route: IV, Memoria ne (ANES) 05-15 Drug form: l 17:51: INJ, ONCE, Stop date: 05/15/17 12:51:00 CDT ePHEDrine 20170 No Route: IV, Me moria (ANES) 05-15 Drug form: l 17:51: INJ, ONCE, Stop date: 05/15/17 12:51:00 CDT phenylephri 20170 No Route: IV, Memoria ne (ANES) 05-15 Drug form: l 17:51: INJ, ONCE, Stop date: 05/15/17 12:51:00 CDT ePHEDrine 20170 No Route: IV, Me moria (ANES) 05-15 Drug form: l 17:51: INJ, ONCE, Stop date: 05/15/17 12:51:00 CDT phenylephri 0 No Route: IV, Memoria ne (ANES) 05-15 Drug form: l 17:51: INJ, ONCE, Stop date: 05/15/17 12:51:00 CDT ePHEDrine 20170 No Route: IV, Me moria (ANES) 05-15 Drug form: l 17:51: INJ, ONCE, Stop date: 05/15/17 12:51:00 CDT heparin 2017-0 No Route: IV, Tico jessi (ANES) 05-15 Drug form: l 17:46: INJ, ONCE, Stop date: 05/15/17 12:46:00 CDT heparin 2017-0 No Route: IV, Tico jessi (ANES) 05-15 Drug form: l 17:46: INJ, ONCE, Stop date: 05/15/17 12:46:00 CDT heparin 2017-0 No Route: IV, Tico jessi (ANES) 05-15 Drug form: l 17:46: INJ, ONCE, Momo 00 Stop date: 05/15/17 12:46:00 CDT heparin No Route: IV, Tico jessi (ANES) 05-15 Drug form: l 17:46: INJ, ONCE, Siler 00 Stop date: 05/15/17 12:46:00 CDT Zofran No Notes: Memoria 05-15 (Same as: l 17:43: Zofran) Siler 00 MEDICATION WASTE Product Size: 4 mg [...] / 05-15 (Same as: l Hydrocodone 17:43: Camilla Joanna nn Bitartrate 00 325/5) Do 5 MG Oral not exceed Tablet 4gm/day of acetaminop hen. Acetaminoph No Notes: Do M emoria en 325 MG / 05-15 not exceed l Hydrocodone 17:43: 4gm/day of Momo Bitartrate 00 acetaminop 10 MG Oral hen. (Same Tablet as: Camilla 325/10) Acetaminoph No Notes: Do M emoria en 05-15 not exceed l 17:43: 4 gm/day. Siler (Same as: Tylenol) Zofran No Notes: Memoria 05-15 (Same as: l 17:43: Zofran) Momo 00 MEDICATION WASTE Product Size: [...] / 05-15 (Same as: l Hydrocodone 17:43: Camilla Joanna nn Bitartrate 00 325/5) Do 5 MG Oral not exceed Tablet 4gm/day of acetaminop hen. Acetaminoph No Notes: Do M emoria en 325 MG / 05-15 not exceed l Hydrocodone 17:43: 4gm/day of Momo Bitartrate 00 acetaminop 10 MG Oral hen. (Same Tablet as: Camilla 325/10) Acetaminoph No Notes: Do M emoria en 05-15 not exceed l 17:43: 4 gm/day. Momo 00 (Same as: Tylenol) Zofran No Notes: Memoria 05-15 (Same as: l 17:43: Zofran) Momo 00 MEDICATION WASTE Product Size: [...] / 05-15 (Same as: l Hydrocodone 17:43: Camilla Joanna nn Bitartrate 00 325/5) Do 5 MG Oral not exceed Tablet 4gm/day of acetaminop hen. Acetaminoph No Notes: Do M emoria en 325 MG / 05-15 not exceed l Hydrocodone 17:43: 4gm/day of Siler Bitartrate 00 acetaminop 10 MG Oral hen. (Same Tablet as: Camilla 325/10) Acetaminoph No Notes: Do M emoria en 8-17 not exceed l 17:43: 4 gm/day. Momo (Same as: Tylenol) Zofran No Notes: Memoria 05-15 (Same as: l 17:43: Zofran) Momo MEDICATION WASTE Product Size: 4 [...] / 05-15 (Same as: l Hydrocodone 17:43: Camilla Joanna nn Bitartrate 00 325/5) Do 5 MG Oral not exceed Tablet 4gm/day of acetaminop hen. Acetaminoph No Notes: Do M emoria en 325 MG / 05-15 not exceed l Hydrocodone 17:43: 4gm/day of Momo Bitartrate 00 acetaminop 10 MG Oral hen. (Same Tablet as: Camilla 325/10) Acetaminoph No Notes: Do M emoria en 05-15 not exceed l 17:43: 4 gm/day. Mmoo (Same as: Tylenol) protamine No Route: IV, Me moria (ANES) 05-15 Drug form: l (ANES) 17:37: INJ, Start Joanna nn 00 date: 05/15/17 12:37:00 CDT, Stop date: 05/15/17 13:37:00 CDT protamine No Route: IV, Me moria (ANES) 05-15 Drug form: l (ANES) 17:37: INJ, Start Joanna nn 00 date: 05/15/17 12:37:00 CDT, Stop date: 05/15/17 13:37:00 CDT protamine No Route: IV, Me moria (ANES) 05-15 Drug form: l (ANES) 17:37: INJ, Start Joanna date: 05/15/17 12:37:00 CDT, Stop date: 05/15/17 13:37:00 CDT protamine 2017- No Route: IV, Me moria (ANES) 05-15 [...] CDT, Stop date: 05/15/17 13:26:00 CDT ePHEDrine 2017-0 No Route: IV, Me moria (ANES) 05-15 Drug form: l 17:26: INJ, ONCE, Momo 00 Stop date: 05/15/17 12:26:00 CDT phenylephri 2017-0 No Route: IV, Memoria ne (ANES) 05-15 Drug form: l (ANES) 17:26: INJ, Start Joanna date: 05/15/17 12:26:00 CDT, Stop date: 05/15/17 13:26:00 CDT ePHEDrine 2017-0 No Route: IV, Me moria (ANES) 05-15 Drug form: l 17:26: INJ, ONCE, Stop date: 05/15/17 12:26:00 CDT phenylephri 2017-0 No Route: IV, Memoria ne (ANES) 05-15 Drug form: l (ANES) 17:26: INJ, Start Joanna date: 05/15/17 12:26:00 CDT, Stop date: 05/15/17 13:26:00 CDT ePHEDrine 2016-0 No Route: IV, Me moria (ANES) 05-15 Drug form: l 17:26: INJ, ONCE, Stop date: 05/15/17 12:26:00 CDT phenylephri 2017-0 No Route: IV, Memoria [...] ONCE, Stop date: 05/15/17 12:21:00 CDT fentaNYL 20170 No Route: IV, Mem oria (ANES) 8 Drug form: l 17:16: INJ, ONCE, Siler 00 Stop date: 05/15/17 12:16:00 CDT fentaNYL 20170 No Route: IV, Mem oria (ANES) 8 Drug form: l 17:16: INJ, ONCE, Siler 00 Stop date: 05/15/17 12:16:00 CDT fentaNYL 20170 No Route: IV, Mem oria (ANES) 05-15 Drug form: l 17:16: INJ, ONCE, Momo 00 Stop date: 05/15/17 12:16:00 CDT fentaNYL 2017-0 No Route: IV, Mem oria (ANES) 8 Drug form: l 17:16: INJ, ONCE, Siler 00 Stop date: 05/15/17 12:16:00 CDT midazolam 20170 No Route: IV, Me moria (ANES) 05-15 Drug form: l 17:11: SOLN, Siler ONCE, Stop date: 05/15/17 12:11:00 CDT propofol 20170 No Route: IV, Mem oria (ANES) 05-15 Drug form: l 17:11: INJ, ONCE, Stop date: 05/15/17 12:11:00 CDT midazolam 2017-0 No Route: IV, Me moria (ANES) 8 Drug form: l 17:11: SOLN, Momo ONCE, Stop date: 05/15/17 12:11:00 CDT propofol 2017-0 No Route: IV, Mem oria (ANES) 05-15 Drug form: l 17:11: INJ, ONCE, Siler 00 Stop date: 05/15/17 12:11:00 CDT midazolam 2017-0 No Route: IV, Me moria (ANES) 8 Drug form: l 17:11: SOLN, Momo 00 ONCE, Stop date: 05/15/17 12:11:00 CDT propofol 2017-0 No Route: IV, Mem oria (ANES) 8 Drug form: l 17:11: INJ, ONCE, Momo 00 Stop date: 05/15/17 12:11:00 CDT midazolam 2017-0 No Route: IV, Me moria (ANES) 05-15 Drug form: l 17:11: SOLN, Momo 00 ONCE, Stop date: 05/15/17 12:11:00 CDT propofol No Route: IV, Mem oria (ANES) 05-15 Drug form: l 17:11: INJ, ONCE, Siler Stop date: 05/15/17 12:11:00 CDT vancomycin No [...] CDT, Stop date: 05/15/17 12:39:00 CDT sodium 0 No Route: IV, Memor ia chloride 8-17 [...] Memoria 8-17 (Same As: l 13:49: Restoril) Siler 00 Restoril No Notes: Memoria 8-17 (Same As: l 13:49: Restoril) Momo 00 Restoril No Notes: Memoria 8-17 (Same As: l 13:49: Restoril) Momo Restoril No Notes: Memoria 8-17 (Same As: l 13:49: Restoril) Momo 00 Cefazolin No Notes: Memori a 8-17 Same as: l 13:00: Ancef Siler Cefazolin No Notes: Memori a 8-17 Same as: l 13:00: Ancef Siler Cefazolin No Notes: Memori a 8-17 Same as: l 13:00: Ancef Momo Cefazolin No Notes: Memori a 8-17 Same as: l 13:00: Ancef Siler sevelamer Yes 800 mg = 1 Me [...] H ermann Tablet 00 snacks [Renvela] heparin 2017-0 No 4,000 Memoria 7-13 unit, [...] 7-13 unit, 4 l 23:00: mL, Route: Siler 00 IV, Drug form: INJ, ONCALL, Start [...] ia 7-13 (Same as: l 14:00: Pepcid) Siler 00 Can be dilute in 5-10cc NS IVP: Slow IV push over at least 2 minutes. Streptococc No 0.5 mL, Mem oria us 04-10 Route: IM, l pneumoniae 02:41: ONCZACH Herm elidia serotype 1 27 Start capsular date: antigen 04/09/17 diphtheria 21:41:27 [id number] CDT, Stop protein date: conjugate 05/09/17 vaccine / 21:36:27 Streptococc CDT us pneumoniae serotype 14 capsular antigen diphtheria [id number] protein conjugate vaccine / Streptococc us pneumoniae serotype 18C capsular antigen d Streptococc No 0.5 mL, Mem oria us 04-10 Route: IM, l pneumoniae 02:41: ONCALL Herm elidia serotype 1 27 Start capsular date: antigen 04/09/17 diphtheria 21:41:27 [id number] CDT, Stop protein date: conjugate 05/09/17 vaccine / 21:36:27 Streptococc CDT us pneumoniae serotype 14 capsular antigen diphtheria [id number] protein conjugate vaccine / Streptococc us pneumoniae serotype 18C capsular antigen d Streptococc No 0.5 mL, Mem oria us 7 Route: IM, l pneumoniae 02:41: ONCALL Herm elidia serotype 1 27 Start capsular date: antigen 04/09/17 diphtheria 21:41:27 [id number] CDT, Stop protein date: conjugate 05/09/17 vaccine / 21:36:27 Streptococc CDT us pneumoniae serotype 14 capsular antigen diphtheria [id number] protein conjugate vaccine / Streptococc us pneumoniae serotype 18C capsular antigen d Streptococc No 0.5 mL, Mem oria us 7-13 Route: IM, l pneumoniae 02:41: ONCALL, Herm elidia serotype 1 27 Start capsular date: antigen 04/09/17 diphtheria 21:41:27 [id number] CDT, Stop protein date: conjugate 05/09/17 vaccine / 21:36:27 Streptococc CDT us pneumoniae serotype 14 capsular antigen diphtheria [id number] protein conjugate vaccine / Streptococc us pneumoniae serotype 18C capsular antigen d heparin No Notes: Memoria 7-13 porcine l 00:10: heparin Siler heparin No Notes: Memoria 7-13 porcine l 00:10: heparin Momo heparin No Notes: Memoria 7-13 porcine l 00:10: heparin Siler heparin No Notes: Memoria 7-13 porcine l 00:10: heparin Siler Famotidine No 20 mg, Memor ia 7-13 Route: l 00:08: IVP, BID, Siler Dosing Weight 108, kg, Priority: STAT, Start date: 04/09/17 19:08:00 CDT, Duration: 30 day, Stop date: 05/09/17 17:00:00 CDT Hydralazine No Notes: Tico jessi 7-13 (Same as: l 00:08: Apresoline Siler ) Push over 5 minutes Famotidine No 20 mg, Memor ia 7-13 Route: l 00:08: IVP, BID, Siler Dosing Weight 108, kg, Priority: STAT, Start date: 04/09/17 19:08:00 CDT, Duration: 30 day, Stop date: 05/09/17 17:00:00 CDT Hydralazine No Notes: Tico jessi 7-13 (Same as: l 00:08: Apresoline Siler ) Push over 5 minutes Famotidine No 20 mg, Memor ia 7-13 Route: l 00:08: IVP, BID, Momo Dosing Weight 108, kg, Priority: STAT, Start date: 04/09/17 19:08:00 CDT, Duration: 30 day, Stop date: 05/09/17 17:00:00 CDT Hydralazine No Notes: Tico jessi 7-13 (Same as: l 00:08: Apresoline ) Push over 5 minutes Famotidine No 20 mg, Memor ia 7- Route: l 00:08: IVP, BID, Dosing Weight 108, kg, Priority: STAT, Start date: 04/09/17 19:08:00 CDT, Duration: 30 day, Stop date: 05/09/17 17:00:00 CDT Hydralazine No Notes: Tico jessi 7-13 (Same as: l 00:08: Apresoline ) Push over 5 minutes Acetaminoph No Notes: Tico jessi en 325 MG / 7-13 (Same as: l Hydrocodone 00:06: Camilla Joanna nn Bitartrate 00 325/5) Do 5 MG Oral not exceed Tablet 4gm/day of acetaminop hen. Docusate No Notes: Memoria 7-13 (Same as: l 00:06: Colace) Momo (Do Not Crush) Ondansetron No Notes: Tico jessi 7-13 (Same as: l 00:06: Zofran) Siler 00 MEDICATION WASTE Product Size: 4 mg Product Wasted: ___ mg Acetaminoph No Notes: Do M emoria en 7-13 not exceed l 00:06: 4 gm/day. Momo (Same as: Tylenol) Acetaminoph No Notes: Tico jessi en 325 MG / 7-13 (Same as: l Hydrocodone 00:06: Camilla Joanna nn Bitartrate 00 325/5) Do 5 MG Oral not exceed Tablet 4gm/day of acetaminop hen. Docusate No Notes: Memoria 7-13 (Same as: l 00:06: Colace) Momo (Do Not Crush) Ondansetron No Notes: Tico jessi 7-13 (Same as: l 00:06: Zofran) Momo 00 MEDICATION WASTE Product Size: 4 mg Product Wasted: ___ mg Acetaminoph No Notes: Do M emoria en 04-10 not exceed l 00:06: 4 gm/day. Momo 00 (Same as: Tylenol) Acetaminoph No Notes: Tico jessi en 325 MG / 04-10 (Same as: l Hydrocodone 00:06: Camilla Joanna nn Bitartrate 00 325/5) Do 5 MG Oral not exceed Tablet 4gm/day of acetaminop hen. Docusate No Notes: Memoria 04-10 (Same as: l 00:06: Colace) Momo 00 (Do Not Crush) Ondansetron No Notes: Tico jessi 04-10 (Same as: l 00:06: Zofran) Momo 00 MEDICATION WASTE Product Size: 4 mg Product Wasted: ___ mg Acetaminoph No Notes: Do M emoria en 04-10 not exceed l 00:06: 4 gm/day. Siler 00 (Same as: Tylenol) Acetaminoph No Notes: Tico jessi en 325 MG / 04-10 (Same as: l Hydrocodone 00:06: Camilla Joanna nn Bitartrate 00 325/5) Do 5 MG Oral not exceed Tablet 4gm/day of acetaminop hen. Docusate No Notes: Memoria 04-10 (Same as: l 00:06: Colace) (Do Not Crush) Ondansetron No Notes: Tico jessi - (Same as: l 00:06: Zofran) Momo 00 MEDICATION WASTE Product Size: 4 mg Product Wasted: ___ mg Acetaminoph No Notes: Do M emoria en 04-10 not exceed l 00:06: 4 gm/day. Siler 00 (Same as: Tylenol) Aspirin 325 No Notes: [...] PO, l 30 MG 20:55: Daily, # Siler Extended 00 30 tab, 1 Release Refill(s) Tablet 24 Yes 30 mg = 1 Memoria Nifedipine 6-19 tab, PO, l 30 MG 20:55: Daily, # Momo Extended 00 30 tab, 1 Release Refill(s) Tablet 24 HR Yes 30 mg = 1 Memoria Nifedipine 6-19 tab, PO, l 30 MG 20:55: Daily, # Siler Extended 00 30 tab, 1 Release Refill(s) Tablet 24 HR Yes 30 mg = 1 Memoria Nifedipine 6-19 tab, PO, l 30 MG 20:55: Daily, # Momo Extended 00 30 tab, 1 Release Refill(s) Tablet 24 No 30 mg = 1 Memoria Nifedipine 6-19 tab, PO, l 30 MG 17:05: Daily, # Siler Extended 00 30 tab, 2 Release Refill(s) Tablet 24 HR No 30 mg = 1 Memoria Nifedipine 6-19 tab, PO, l 30 MG 17:05: Daily, # Siler Extended 00 30 tab, 2 Release Refill(s) [...] 6-19 unit, 1 l 13:48: mL, Route: Siler 00 IV Lock, Drug form: INJ, PRN, Dosing Weight 107.273, kg, PRN Dialysis, Start date: 03/17/17 8:48:00 CDT, Duration: 30 day, Stop date: 04/16/17 8:47:00 CDT Sodium 2017-0 No 2,000 mL, Memori a Chloride 6-19 8000 l 0.154 13:48: ml/hr, Siler MEQ/ML 00 Infuse Injectable Over: 15 Solution minutes, Route: IV, 2,000, Drug form: INJ, PRN, Dosing Weight 107.273 kg, Start date: 03/17/17 8:48:00 CDT, Duration: 24 hr, Stop date: 03/18/17 8:47:00 CDT, For Use by Dialysis nurse ONLY, PRN Dialysis heparin 2017-0 No 1,000 Memoria 6-19 unit, 1 l 13:48: mL, Route: Siler 00 IV Lock, Drug form: INJ, PRN, Dosing Weight 107.273, kg, PRN Dialysis, Start date: 03/17/17 8:48:00 CDT, Duration: 30 day, Stop date: 04/16/17 8:47:00 CDT Sodium 2017-0 No 2,000 mL, Memori a Chloride 6-19 8000 l 0.154 13:48: ml/hr, Siler MEQ/ML 00 Infuse Injectable Over: 15 Solution [...] day, Stop date: 04/16/17 8:47:00 CDT Sodium No 2,000 mL, Memori a Chloride 03-17 8000 l 0.154 13:48: ml/hr, Momo MEQ/ML 00 Infuse Injectable Over: 15 Solution minutes, Route: IV, 2,000, Drug form: INJ, PRN, Dosing Weight 107.273 kg, Start date: 03/17/17 8:48:00 CDT, Duration: 24 hr, Stop date: 03/18/17 8:47:00 CDT, For Use by Dialysis nurse ONLY, PRN Dialysis heparin No 1,000 Memoria 03-17 unit, 1 l 13:48: mL, Route: IV Lock, Drug form: INJ, PRN, Dosing [...] elidia tablet 00 tab, 1 Refill(s) heparin 2017-0 No 4,100 Memoria 6-16 unit, 4.1 l 13:47: mL, Route: Momo 00 IV, Drug form: INJ, ONCE, Start date: 03/14/17 8:47:00 CDT, Stop date: 03/14/17 8:47:00 CDT heparin 2017-0 No 4,100 Memoria 6-16 unit, 4.1 l 13:47: mL, Route: Momo 00 IV, Drug form: INJ, ONCE, Start date: 03/14/17 8:47:00 CDT, Stop date: 03/14/17 8:47:00 CDT heparin 2017-0 No 4,100 Memoria 6-16 unit, 4.1 l 13:47: mL, Route: Momo 00 IV, Drug form: INJ, ONCE, Start date: 03/14/17 8:47:00 CDT, Stop date: 03/14/17 8:47:00 CDT heparin 2017-0 No 4,100 Memoria 6-16 unit, 4.1 l 13:47: mL, Route: Siler 00 IV, Drug form: INJ, ONCE, Start [...] 6-14 unit, 10 l 22:55: mL, Route: Siler 00 INJ, Drug form: INJ, PRN, Dosing Weight 107.273, kg, PRN Dialysis, Start date: 03/12/17 17:55:00 CDT, Duration: 30 day, Stop date: 04/11/17 17:54:00 CDT heparin 2017-0 No 10,000 Memoria 6-14 unit, 10 l 22:55: mL, Route: Momo 00 INJ, Drug form: INJ, PRN, Dosing Weight 107.273, kg, PRN Dialysis, Start date: 03/12/17 17:55:00 CDT, Duration: 30 day, Stop date: 04/11/17 17:54:00 CDT heparin 2017-0 No 10,000 Memoria 6-14 unit, 10 l 22:55: mL, Route: Siler 00 INJ, Drug form: INJ, PRN, Dosing Weight 107.273, kg, PRN Dialysis, Start date: 03/12/17 17:55:00 CDT, Duration: 30 day, Stop date: 04/11/17 17:54:00 CDT heparin 2017-0 No 10,000 Memoria 6-14 unit, 10 l 22:55: mL, Route: Siler 00 INJ, Drug form: INJ, PRN, Dosing Weight 107.273, kg, PRN Dialysis, Start date: 03/12/17 17:55:00 CDT, Duration: 30 day, Stop date: 04/11/17 17:54:00 CDT Nifedical No Notes: Memori a XL 6-13 (Same as: l 23:56: Adalat CC, Siler 00 Procardia XL) Give on empty stomach. Take 1 hour before or 2 hours after meal; "Avoid grapefruit and grapefruit juice". Do not crush Nifedical No Notes: Memori a XL 6-13 (Same as: l 23:56: Adalat CC, Siler 00 Procardia XL) Give on empty stomach. Take 1 hour before or 2 hours after meal; "Avoid grapefruit and grapefruit juice". Do not crush Nifedical 2016- No Notes: Memori a XL 6-13 (Same as: l 23:56: Adalat CC, Momo 00 Procardia XL) Give on empty stomach. Take 1 hour before or 2 hours after meal; "Avoid grapefruit and grapefruit juice". Do not crush Nifedical 2016-0 No Notes: Memori a XL 6-13 (Same as: l 23:56: Adalat CC, Momo 00 Procardia XL) Give on empty stomach. Take 1 hour before or 2 hours after meal; "Avoid grapefruit and grapefruit juice". Do not crush Protonix 2016-0 No Notes: Memoria 6-13 Tablet l 12:30: should not Momo 00 be chewed or crushed. (Same as: Protonix) Protonix 2016-0 No Notes: Memoria 6-13 Tablet l 12:30: should not Momo 00 be chewed or crushed. (Same as: Protonix) Protonix 2016- No Notes: Memoria 6-13 Tablet l 12:30: should not Momo 00 be chewed or crushed. (Same as: Protonix) Protonix No Notes: Memoria 6-13 Tablet l 12:30: should not Momo 00 be chewed or crushed. (Same as: Protonix) Hydralazine No Notes: Tico jessi 6-13 (Same as: l 02:05: Apresoline Siler 00 ) Push over 5 minutes Hydralazine No Notes: Tico jessi 6-13 (Same as: l 02:05: Apresoline Siler 00 ) Push over 5 minutes Hydralazine No Notes: Tico jessi 6-13 (Same as: l 02:05: Apresoline Momo 00 ) Push over 5 minutes Hydralazine No Notes: Tico jessi 6-13 (Same as: l 02:05: Apresoline Siler 00 ) Push over 5 minutes metoprolol No Notes: Memor ia tartrate 6-12 (Same as: l 23:59: Lopressor) Siler metoprolol No Notes: Memor ia tartrate 6-12 (Same as: l 23:59: Lopressor) Siler metoprolol No Notes: Memor ia tartrate 6-12 (Same as: l 23:59: Lopressor) Siler metoprolol No Notes: Memor ia tartrate 6-12 (Same as: l 23:59: Lopressor) Momo 00 Sodium No 1,000 mL, Memori a Chloride 03-10 Rate: 125 l 0.0769 23:57: ml/hr, Siler MEQ/ML 00 Infuse Injectable over: 8 Solution hr, Route: IV, Dosing Weight 102.955 kg, Total Volume: 1,000, Start date: 03/10/17 18:57:00 CDT, Duration: 30 day, Stop date: 04/09/17 18:56:00 CDT Nitroglycer No Notes: Tico jessi in -12 (Same l 23:57: as:Nitroqu Momo 00 ick, Nitrostat) "Do Not Crush" Sublingual tablet Hydralazine No Notes: Tico jessi 6-12 (Same as: l 23:57: Apresoline Siler 00 ) Push over 5 minutes Albuterol No Notes: Memori a 0.833 MG/ML 12 (Same as: l / 23:57: Duoneb) Momo Ipratropium 00 [place] 0.167 MG/ML Inhalant Solution [DuoNeb] Saline No Notes: Memoria Flush 0.9% 03-10 (Same as: l 23:57: BD Momo 00 Posiflush) Acetaminoph No Notes: Tico jessi en 325 MG / 03-10 (Same as: l Hydrocodone 23:57: Camilla Joanna nn Bitartrate 00 325/5) Do 5 MG Oral not exceed Tablet 4gm/day of acetaminop hen. Acetaminoph No Notes: Do M emoria en 12 not exceed l 23:57: 4 gm/day. Momo 00 (Same as: Tylenol) Morphine No Notes: Memoria -12 (Same l 23:57: as:MORPhin Siler 00 e Sulfate) Ondansetron No Notes: Tico jessi -12 (Same as: l 23:57: Zofran) Momo 00 MEDICATION WASTE Product Size: 4 mg Product Wasted: ___ mg Sodium No 1,000 mL, Memori a Chloride 03-10 Rate: 125 l 0.0769 23:57: ml/hr, Siler MEQ/ML 00 Infuse Injectable over: 8 Solution hr, Route: IV, Dosing Weight 102.955 kg, Total Volume: 1,000, Start date: 03/10/17 18:57:00 CDT, Duration: 30 day, Stop date: 04/09/17 18:56:00 CDT Nitroglycer No Notes: Tico jessi in 03-10 (Same l 23:57: as:Nitroqu Momo 00 ick, Nitrostat) "Do Not Crush" Sublingual tablet Hydralazine No Notes: Tico jessi -12 (Same as: l 23:57: Apresoline Siler 00 ) Push over 5 minutes Albuterol No Notes: Memori a 0.833 MG/ML 12 (Same as: l / 23:57: Duoneb) Siler Ipratropium 00 [place] 0.167 MG/ML Inhalant Solution [DuoNeb] Saline No Notes: Memoria Flush 0.9% - (Same as: l 23:57: BD Momo 00 Posiflush) Acetaminoph No Notes: Tico jessi en 325 MG / 12 (Same as: l Hydrocodone 23:57: Camilla Joanna nn Bitartrate 00 325/5) Do 5 MG Oral not exceed Tablet 4gm/day of acetaminop hen. Acetaminoph No Notes: Do M emoria en -12 not exceed l 23:57: 4 gm/day. Momo 00 (Same as: Tylenol) Morphine No Notes: Memoria -12 (Same l 23:57: as:MORPhin Momo 00 e Sulfate) Ondansetron No Notes: Tico jessi - (Same as: l 23:57: Zofran) Momo 00 [...] jessi in 03-10 (Same l 23:57: as:Nitroqu ick, Nitrostat) "Do Not Crush" Sublingual tablet Hydralazine No Notes: Tico jessi -12 (Same as: l 23:57: Apresoline ) Push over 5 minutes Albuterol No Notes: Memori a 0.833 MG/ML 03-10 (Same as: l / 23:57: Duoneb) Siler Ipratropium 00 [place] 0.167 MG/ML Inhalant Solution [DuoNeb] Saline No Notes: Memoria Flush 0.9% 6-12 (Same as: l 23:57: BD Siler 00 Posiflush) Acetaminoph No Notes: Tico jessi en 325 MG / 612 (Same as: l Hydrocodone 23:57: Camilla Joanna nn Bitartrate 00 325/5) Do 5 MG Oral not exceed Tablet 4gm/day of acetaminop hen. Acetaminoph No Notes: Do M emoria en -12 not exceed l 23:57: 4 gm/day. Momo 00 (Same as: Tylenol) Morphine No Notes: Memoria 6-12 (Same l 23:57: as:MORPhin Momo 00 e Sulfate) Ondansetron No Notes: Tico jessi -12 (Same as: l 23:57: Zofran) Siler 00 MEDICATION WASTE Product Size: 4 mg Product Wasted: ___ mg Sodium No 1,000 mL, Memori a Chloride - Rate: 125 l 0.0769 23:57: ml/hr, Momo MEQ/ML 00 Infuse Injectable over: 8 Solution hr, Route: IV, Dosing Weight 102.955 kg, Total Volume: 1,000, Start date: 03/10/17 18:57:00 CDT, Duration: 30 day, Stop date: 04/09/17 18:56:00 CDT Nitroglycer No Notes: Tico jessi in -12 (Same l 23:57: as:Nitroqu Siler 00 ick, Nitrostat) "Do Not Crush" Sublingual tablet Hydralazine No Notes: Tico jessi 6-12 (Same as: l 23:57: Apresoline Siler 00 ) Push over 5 minutes Albuterol No Notes: Memori a 0.833 MG/ML -12 (Same as: l / 23:57: Duoneb) Siler Ipratropium 00 [place] 0.167 MG/ML Inhalant Solution [DuoNeb] Saline No Notes: Memoria Flush 0.9% 6-12 (Same as: l 23:57: BD Siler 00 Posiflush) Acetaminoph No Notes: Tico jessi en 325 MG / 12 (Same as: l Hydrocodone 23:57: Camilla Joanna nn Bitartrate 00 325/5) Do 5 MG Oral not exceed Tablet 4gm/day of acetaminop hen. Acetaminoph No Notes: Do M emoria en -12 not exceed l 23:57: 4 gm/day. Momo 00 (Same as: Tylenol) Morphine No Notes: Memoria 12 (Same l 23:57: as:MORPhin Siler 00 e Sulfate) Ondansetron No Notes: Tico jessi -12 (Same as: l 23:57: Zofran) Siler 00 MEDICATION WASTE Product Size: 4 mg Product Wasted: ___ mg Rocephin 2016- No 1 gm, Memoria 6-12 Route: l 23:06: IVPB, Drug Momo 00 form: PDR/INJ, ONCE, Dosing Weight 102.955, kg, Priority: STAT, Start date: 03/10/17 18:06:00 CDT, Duration: 1 doses or times, Stop date: 03/10/17 18:06:00 CDT, ABX Indication : Urinary Tract Infection Rocephin 2016- No 1 gm, Memoria 12 Route: l 23:06: IVPB, Drug Momo 00 form: PDR/INJ, ONCE, Dosing Weight 102.955, kg, Priority: STAT, Start date: 03/10/17 18:06:00 CDT, Duration: 1 doses or times, Stop date: 03/10/17 18:06:00 CDT, ABX Indication : Urinary Tract Infection Rocephin 2016- No 1 gm, Memoria 612 Route: l 23:06: IVPB, Drug Siler 00 form: PDR/INJ, ONCE, Dosing Weight 102.955, kg, Priority: STAT, Start date: 03/10/17 18:06:00 CDT, Duration: 1 doses or times, Stop date: 03/10/17 18:06:00 CDT, ABX Indication : Urinary Tract Infection Rocephin 0 No 1 gm, Memoria 6-12 Route: l 23:06: IVPB, Drug Momo 00 form: PDR/INJ, ONCE, Dosing Weight 102.955, kg, Priority: STAT, Start date: 03/10/17 18:06:00 CDT, Duration: 1 doses or times, Stop date: 03/10/17 18:06:00 CDT, ABX Indication : Urinary Tract Infection Saline No Notes: Memoria Flush 0.9% 6-12 (Same as: l 21:57: BD Siler Posiflush) Saline No Notes: Memoria Flush 0.9% 6-12 (Same as: l 21:57: BD Siler 00 Posiflush) Saline No Notes: Memoria Flush 0.9% 6-12 (Same as: l 21:57: BD Momo 00 Posiflush) Saline No Notes: Memoria Flush 0.9% 6-12 (Same as: l 21:57: BD Siler 00 Posiflush) Ascorbic No 1 tab, Memoria Acid [...] 3- tab, l 15:00: Route: PO, Momo 00 Drug form: TAB, Daily, Dosing Weight 87.7, kg, Start date: 11/27/13 9:00:00, Duration: 30 day, Stop date: 12/26/13 9:00:00(Sa me as: Folvite) Thiamine No 100 mg, 1 Tico jessi 3-01 tab, l 15:00: Route: PO, Siler 00 Drug form: TAB, Daily, Dosing Weight 87.7, kg, Start date: 11/27/13 9:00:00, Duration: 30 day, Stop date: 12/26/13 9:00:00(Sa me As: Vitamin B1) Ascorbic 2014-0 No 1 tab, Memoria Acid / 11-27 [...] jessi 3-01 tab, l 15:00: Route: PO, Siler 00 Drug form: TAB, Daily, Dosing Weight 87.7, kg, Start date: 11/27/13 9:00:00, Duration: 30 day, Stop date: 12/26/13 9:00:00(Sa me as: Folvite) Thiamine No 100 mg, 1 Tico jessi 3-01 tab, l 15:00: Route: PO, Siler 00 Drug form: TAB, Daily, Dosing Weight 87.7, kg, Start date: 11/27/13 9:00:00, Duration: 30 day, Stop date: 12/26/13 9:00:00(Sa me As: Vitamin B1) Ascorbic No 1 tab, [...] jessi 3-01 tab, l 15:00: Route: PO, Siler 00 Drug form: TAB, Daily, Dosing Weight 87.7, kg, Start date: 11/27/13 9:00:00, Duration: 30 day, Stop date: 12/26/13 9:00:00(Sa me as: Folvite) Thiamine No 100 mg, 1 Tico jessi 3-01 tab, l 15:00: Route: PO, Momo 00 Drug form: TAB, Daily, Dosing Weight 87.7, kg, Start date: 11/27/13 9:00:00, Duration: 30 day, Stop date: 12/26/13 9:00:00([facility] As: Vitamin B1) Ascorbic No 1 tab, [...] 9:00:00, Duration: 30 day, Stop date: 12/26/13 9:00:00([facility] as: Folvite) Thiamine No 100 mg, 1 Tico jessi 3-01 tab, l 15:00: Route: PO, Siler 00 Drug form: TAB, Daily, Dosing Weight 87.7, kg, Start date: 11/27/13 9:00:00, Duration: 30 day, Stop date: 12/26/13 9:00:00([facility] As: Vitamin B1) thiamine Yes 100 mg [...] tab, PO, l Tablet 19:21: Daily, # Siler 00 30 tab, 0 Refill(s) amLODIPine Yes 10 mg = 2 Me moria 5 mg oral 2-28 tab, PO, l tablet 19:21: Daily, # Momo 00 30 tab, 0 Refill(s) Acetaminoph Yes 1 tab, PO, Memoria en 325 MG / 2-28 Q6H, Pain, l Hydrocodone 19:21: # 30 tab, H ermann Bitartrate 00 0 7.5 MG Oral Refill(s) Tablet [Camilla 7.5/325] thiamine Yes 100 mg = 1 Mem oria 100 mg oral 2-28 tab, PO, l tablet 19:21: Daily, # Siler 00 30 tab, 0 Refill(s) Multiple Yes [...] tab, PO, l Tablet 19:21: Daily, # Siler 00 30 tab, 0 Refill(s) amLODIPine Yes 10 mg = 2 Me moria 5 mg oral 2-28 tab, PO, l tablet 19:21: Daily, # Momo 00 30 tab, 0 Refill(s) Acetaminoph Yes 1 tab, PO, Memoria en 325 MG / 2-28 Q6H, Pain, l Hydrocodone 19:21: # 30 tab, H ermann Bitartrate 00 0 7.5 MG Oral Refill(s) Tablet [Camilla 7.5/325] thiamine Yes 100 mg = 1 [...] 00 0 7.5 MG Oral Refill(s) Tablet [Camilla 7.5/325] thiamine Yes 100 mg = 1 Mem oria 100 mg oral 2-28 tab, PO, l tablet 19:21: Daily, # Siler 00 30 tab, 0 Refill(s) Multiple Yes [...] tab, PO, l Tablet 19:21: Daily, # Siler 00 30 tab, 0 Refill(s) amLODIPine Yes 10 mg = 2 Me moria 5 mg oral 2-28 tab, PO, l tablet 19:21: Daily, # Siler 00 30 tab, 0 Refill(s) Acetaminoph Yes 1 tab, PO, Memoria en 325 MG / 2-28 Q6H, Pain, l Hydrocodone 19:21: # 30 tab, H ermann Bitartrate 00 0 7.5 MG Oral Refill(s) Tablet [Camilla 7.5/325] Acetaminoph No 1 tab, Tico jessi en 325 MG / 11-26 Route: PO, l Hydrocodone 19:19: Drug Form: Momo Bitartrate 00 TAB, 7.5 MG Oral Dosing Tablet Weight [Camilla 87.7, kg, 7.5/325] Q6H, PRN Pain, Start date: 11/26/13 13:19:00, Duration: 30 day, Stop date: 12/26/13 13:18:00Sa me as Camilla 325-7.5mg Do not exceed 4gm/day of acetaminop hen. Acetaminoph No 1 tab, Tico jessi en 325 MG / 11-26 Route: PO, l Hydrocodone 19:19: Drug Form: Momo Bitartrate 00 TAB, 7.5 MG Oral Dosing Tablet Weight [Camilla 87.7, kg, 7.5/325] Q6H, PRN Pain, Start date: 11/26/13 13:19:00, Duration: 30 day, Stop date: 12/26/13 13:18:00Sa me as Camilla 325-7.5mg Do not exceed 4gm/day of acetaminop hen. Acetaminoph No 1 tab, Tico jessi en 325 MG / 11-26 Route: PO, l Hydrocodone 19:19: Drug Form: Siler Bitartrate 00 TAB, 7.5 MG Oral Dosing Tablet Weight [Camilla 87.7, kg, 7.5/325] Q6H, PRN Pain, Start date: 11/26/13 13:19:00, Duration: 30 day, Stop date: 12/26/13 13:18:00Sa me as Camilla 325-7.5mg Do not exceed 4gm/day of acetaminop hen. Acetaminoph No 1 tab, Tico jessi en 325 MG / 11-26 Route: PO, l Hydrocodone 19:19: Drug Form: Momo Bitartrate 00 TAB, 7.5 MG Oral Dosing Tablet Weight [Camilla 87.7, kg, 7.5/325] Q6H, PRN Pain, Start date: 11/26/13 13:19:00, Duration: 30 day, Stop date: 12/26/13 13:18:00Sa me as Camilla 325-7.5mg Do not exceed 4gm/day [facility] 2 Memori a 2-26 tab, l 21:25: Route: PO, Siler 00 Drug form: TAB, Daily, Dosing Weight 87.7, kg, Priority: NOW, Start date: 11/24/13 15:25:00, Duration: 30 day, Stop date: 12/24/13 9:00:00(Sa me as: [facility]) [facility], 2 Memori a 2-26 tab, l 21:25: Route: PO, Momo 00 Drug form: TAB, Daily, Dosing Weight 87.7, kg, Priority: NOW, Start date: 11/24/13 15:25:00, Duration: 30 day, Stop date: 12/24/13 9:00:00( me as: [facility] 2013-0 No 10 mg, 2 Memori a 2-26 tab, l 21:25: Route: PO, Momo 00 Drug form: TAB, Daily, Dosing Weight 87.7, kg, Priority: NOW, Start date: 11/24/13 15:25:00, Duration: 30 day, Stop date: 12/24/13 9:00:00(Sa me as: [facility], 2 Memori a 2-26 tab, l 21:25: Route: PO, Drug form: TAB, Daily, Dosing Weight 87.7, kg, Priority: NOW, Start date: 11/24/13 15:25:00, Duration: 30 day, Stop date: 12/24/13 9:00:00(Sa me as: Norvasc) Ceftriaxone 2013-0 No 1 gm, Memor ia 2-26 Route: IV, l 10:07: ONCE, Momo 00 Dosing Weight 87.7, kg, Priority: STAT, Start date: 11/24/13 4:07:00, Stop date: 11/24/13 4:07:00(Sa me As: Rocephin). Use with 100ml NS mini-bag PLUS and infuse over 30 min Ceftriaxone 2013-0 No 1 gm, Memor ia 2-26 Route: IV, l 10:07: ONCE, Siler 00 Dosing Weight 87.7, kg, Priority: STAT, Start [...] Start date: 11/24/13 4:07:00, Stop date: 11/24/13 4:07:00( me As: Rocephin). Use with 100ml NS mini-bag PLUS and infuse over 30 min Vancomycin 2013- No 1 gm, 200 Me moria 2-26 [...] exceed 4 gm/day. (Same as: Tylenol) Vancomycin 2013- No 1 gm, 200 Me moria 2-26 [...] 2-26 mL, Route: l 10:06: IV, Drug Siler 00 form: INJ, ONCE, Dosing Weight 87.7, [...] ia 2-26 tab, l 10:06: Route: NG, Siler 00 Drug form: TAB, Q4H, Dosing Weight 87.7, kg, PRN as needed for fever, Start date: 11/24/13 4:06:00, Duration: 30 day, Stop date: 12/24/13 4:05:00Do not exceed 4 gm/day. (Same as: Tylenol) Lopressor 2013-0 No 50 mg, 1 Tico jessi 2-26 tab, l 03:00: Route: PO, Siler 00 Drug form: TAB, Q12H, Dosing Weight 87.7, kg, Start date: 11/23/13 21:00:00, Stop date: 12/23/13 9:00:00(Sa me as: Lopressor) Lopressor 2013-0 No 50 mg, 1 Tico jessi 2-26 tab, l 03:00: Route: PO, Siler 00 Drug form: TAB, Q12H, Dosing Weight 87.7, kg, Start date: 11/23/13 21:00:00, Stop date: 12/23/13 9:00:00(Sa me as: Lopressor) Lopressor 2013-0 No 50 mg, 1 Tico jessi 2-26 tab, l 03:00: Route: PO, Siler 00 Drug form: TAB, Q12H, Dosing Weight 87.7, kg, Start date: 11/23/13 21:00:00, Stop date: 12/23/13 9:00:00(Sa me as: Lopressor) Lopressor 2013-0 No 50 mg, 1 Tico jessi 2-26 tab, l 03:00: Route: PO, Siler 00 Drug form: TAB, Q12H, Dosing Weight 87.7, kg, Start date: 11/23/13 21:00:00, Stop date: 12/23/13 9:00:00(Sa me as: Lopressor) pantoprazol 2013-0 No 40 mg, Tico jessi e 2-25 Route: l 15:00: IVP, Momo 00 Daily, Dosing Weight 90.909, kg, Start date: 11/23/13 9:00:00, Duration: 30 day, Stop date: 12/22/13 9:00:00For IV push reconstitu te with 10 ml 0.9% sodium chloride and push over 2 minutes. (Same as: Protonix) pantoprazol 2013-0 No 40 mg, Tico jessi e 2-25 Route: l 15:00: IVP, Momo 00 Daily, Dosing Weight 90.909, kg, Start date: 11/23/13 9:00:00, Duration: 30 day, Stop date: 12/22/13 9:00:00For IV push reconstitu te with 10 ml 0.9% sodium chloride and push over 2 minutes. (Same as: Protonix) pantoprazol 2013-0 No 40 mg, Tico jessi e 2-25 Route: l 15:00: IVP, Siler 00 Daily, Dosing Weight 90.909, kg, Start date: 11/23/13 9:00:00, Duration: 30 day, Stop date: 12/22/13 9:00:00For IV push reconstitu te with 10 ml 0.9% sodium chloride and push over 2 minutes. (Same as: Protonix) pantoprazol 2013-0 No 40 mg, Tico jessi e 2-25 Route: l 15:00: IVP, Momo 00 Daily, Dosing Weight 90.909, kg, Start date: 11/23/13 9:00:00, Duration: 30 day, Stop date: 12/22/13 9:00:00For IV push reconstitu te with 10 ml 0.9% sodium chloride and push over 2 minutes. (Same as: Protonix) Saline 2013-0 No 5 ml, Memoria Flush 0.9% 2-25 Route: l 03:00: IVP, Drug Siler 00 Form: INJ, Dosing Weight 90.909, kg, Q12H, Start date: 11/22/13 21:00:00, Duration: 30 day, Stop date: 12/22/13 9:00:00(Sa me as: BD Posiflush) Docusate 0 No 100 mg, 10 Mem oria 2-25 mL, Route: l 03:00: PO, Drug Siler 00 form: LIQ, Q12H, Dosing Weight 90.909, kg, Start date: 11/22/13 21:00:00, Stop date: 12/22/13 9:00:00(Sa me as: Colace) Saline 2013-0 No 5 ml, Memoria Flush 0.9% 2-25 Route: l 03:00: IVP, Drug Siler 00 Form: INJ, Dosing Weight 90.909, kg, Q12H, Start date: 11/22/13 21:00:00, Duration: 30 day, Stop date: 12/22/13 9:00:00(Sa me as: BD Posiflush) Docusate 2013-0 No 100 mg, 10 Mem oria 2-25 mL, Route: l 03:00: PO, Drug Momo 00 form: LIQ, Q12H, Dosing Weight 90.909, kg, Start date: 11/22/13 21:00:00, Stop date: 12/22/13 9:00:00(Sa me as: Colace) Saline 2014-0 No 5 ml, Memoria Flush [...] date: 12/22/13 9:00:00(Sa me as: Colace) Sodium 2014-0 No 1,000 mL, Memori a Chloride 2-24 Rate: 75 l 0.9% IV 22:38: ml/hr, Siler 1,000 mL 00 Infuse over: 13.3 hr, Route: IV, Dosing Weight 87.7 kg, Total Volume: 1,000, Start date: 11/22/13 16:38:00, Duration: 3 day, Stop date: 11/25/13 16:37:00 Sodium 2014-0 No 1,000 mL, Memori a Chloride 2-24 Rate: 75 l 0.9% IV 22:38: ml/hr, Siler 1,000 mL 00 Infuse over: 13.3 hr, Route: IV, Dosing Weight 87.7 kg, Total Volume: 1,000, Start date: 11/22/13 16:38:00, Duration: 3 day, Stop date: 11/25/13 16:37:00 Sodium 2014-0 No 1,000 mL, Memori a Chloride 2-24 Rate: 75 l 0.9% IV 22:38: ml/hr, Siler 1,000 mL 00 Infuse over: 13.3 hr, [...] 2-24 Rate: 75 l 0.154 22:08: ml/hr, Siler MEQ/ML 00 Infuse Injectable over: 13.5 Solution hr, Route: IV, Dosing Weight 87.7 kg, Total Volume: 1,011.2, Start date: 11/22/13 16:08:00, Duration: 3 day, Stop date: 11/25/13 16:07:00 Sodium 2014-0 No 1,000 mL, Memori a Chloride 2-24 Rate: 75 l 0.154 22:08: ml/hr, Siler MEQ/ML 00 Infuse Injectable over: 13.5 Solution hr, Route: IV, Dosing Weight 87.7 kg, Total Volume: 1,011.2, Start date: 11/22/13 16:08:00, Duration: 3 day, Stop date: 11/25/13 16:07:00 Sodium 2014-0 No 1,000 mL, Memori a Chloride 2-24 Rate: 75 l 0.154 22:08: ml/hr, Siler MEQ/ML 00 Infuse Injectable over: 13.5 Solution hr, Route: IV, Dosing Weight 87.7 kg, Total Volume: 1,011.2, Start date: 11/22/13 16:08:00, Duration: 3 day, Stop date: 11/25/13 16:07:00 Sodium 2014-0 No 1,000 mL, Memori a Chloride 2-24 Rate: 75 l 0.154 22:08: ml/hr, Siler MEQ/ML 00 Infuse Injectable over: 13.5 Solution [...] 2-24 mL, Route: l 22:05: IVP, Drug Siler 00 form: INJ, Q2H, Dosing Weight 87.7, kg, PRN Pain, Start date: 11/22/13 16:05:00, Duration: 30 day, Stop date: 12/22/13 16:04:00(S anthony as:MORPhin e Sulfate) Zofran 2014-0 No 4 mg, 2 Memoria 2-24 mL, Route: l 22:05: IV, Drug Siler 00 form: INJ, Q8H, Dosing Weight 87.7, kg, PRN Nausea, Start date: 11/22/13 16:05:00, Duration: 30 day, Stop date: 12/22/13 17:04:00(S anthony as: Zofran) Ativan 2014-0 No 1 mg, 0.5 Memori a 2-24 mL, Route: l 22:05: IVP, Drug Siler 00 form: INJ, Q3H, Dosing Weight 87.7, [...] 2-24 mL, Route: l 22:05: IVP, Drug Siler 00 form: INJ, Q3H, Dosing Weight 87.7, [...] 0.9% 2-24 Route: l 21:21: IVP, Drug Siler 00 Form: INJ, Dosing Weight 90.909, kg, PRN, PRN Line Flush, Start date: 11/22/13 15:21:00, Duration: 30 day, Stop date: 12/22/13 16:20:00(S anthony as: BD Posiflush) Nicardipine 2013-0 No 40 mg, 200 Memoria 2-24 mL, Rate: l 21:21: Start at 5 Siler 00 mgTitrate to maintain SBP 110-150 mmHg., Dosing Weight 90.909, kg, Route: IV, Total Volume: 200, Start Date: 11/22/13 15:21:00, Duration: 30 day, Stop date: 12/22/13 15:20:00, Replace Every: 24 hrSame as: Cardene Concentrat ion: (0.2 mg /1 ml ) Magnesium 2013- No 30 mL, Memori a Hydroxide 2-24 Route: PO, l 21:21: Drug Form: Siler 00 SUSP, Dosing Weight 90.909, kg, BID, PRN Constipati on, Start date: 11/22/13 15:21:00, Duration: 30 day, Stop date: 12/22/13 15:20:00(S anthony as: Milk of Magnesia, MOM) Saline No 5 ml, Memoria Flush 0.9% 2-24 Route: l 21:21: IVP, Drug 00 Form: INJ, Dosing Weight 90.909, kg, [...] 0.9% 2-24 Route: l 21:21: IVP, Drug Momo 00 Form: INJ, Dosing Weight 90.909, kg, PRN, PRN Line Flush, Start date: 11/22/13 15:21:00, Duration: 30 day, Stop date: 12/22/13 16:20:00(S anthony as: BD Posiflush) Nicardipine 2013-0 No 40 mg, 200 Memoria 2-24 mL, Rate: l 21:21: Start at 5 Siler 00 mgTitrate to maintain SBP 110-150 mmHg., Dosing Weight 90.909, kg, Route: IV, Total Volume: 200, Start Date: 11/22/13 15:21:00, Duration: 30 day, Stop date: 12/22/13 15:20:00, Replace Every: 24 hrSame as: Cardene Concentrat ion: (0.2 mg /1 ml ) Magnesium 2013-0 No 30 mL, Memori a Hydroxide 2-24 Route: PO, l 21:21: Drug Form: Siler 00 SUSP, Dosing Weight 90.909, kg, BID, [...] 2-24 Route: PO, l 21:21: Drug Form: Siler 00 SUSP, Dosing Weight 90.909, kg, BID, PRN Constipati on, Start date: 11/22/13 15:21:00, Duration: 30 day, Stop date: 12/22/13 15:20:00(S anthony as: Milk of Magnesia, MOM) Labetalol 2013-0 No 20 mg, 4 Tico [...] 2-24 mL, Route: l 21:07: IVP, Drug Siler 00 form: INJ, Q10Min, Dosing Weight 90.909, kg, PRN Other -See Comment, Start date: 11/22/13 15:07:00, Duration: 30 day, Stop date: 12/22/13 16:06:00(S anthony as: Normodyne, Trandate) Push over 2 minutes Give bolus over 2-3 minutes. Hydralazine 2013-0 No 20 mg, 1 Me moria 2-24 mL, Route: l 21:07: IVP, Drug Siler 00 form: INJ, Q4H, Dosing Weight 90.909, kg, PRN Elevated BP, Start date: 11/22/13 15:07:00, Duration: 30 day, Stop date: 12/22/13 15:06:00, SBP>150(Sa me as: Apresoline ) Push over 5 minutes Labetalol 2013-0 No 20 mg, 4 [place] jessi 2-24 mL, Route: l 21:07: IVP, Drug Siler 00 form: INJ, Q10Min, Dosing Weight 90.909, [...] Apresoline ) Push over 5 minutes Labetalol 2013- No 20 mg, 4 [place] jessi 2-24 mL, Route: l 21:07: IVP, Drug Siler 00 form: INJ, Q10Min, Dosing Weight 90.909, [...] Memoria 2-24 mL, Rate: l 18:57: Titrate, Siler 00 Dosing Weight 90.909, kg, Route: IV, Total [...] 0.9% 2-24 Route: l 18:46: IVP, Drug Momo Form: INJ, Dosing Weight 79.545, kg, PRN, PRN Line Flush, Start date: 11/22/13 12:46:00, Duration: 30 day, Stop date: 12/22/13 13:45:00(S anthony as: BD Posiflush) Saline 2013-0 No 5 mL, Memoria Flush 0.9% 224 Route: l 18:46: IVP, Drug Siler Form: INJ, Dosing Weight 79.545, kg, PRN, PRN Line Flush, Start date: 11/22/13 12:46:00, Duration: 30 day, Stop date: 12/22/13 13:45:00(S anthony as: BD Posiflush) Saline 2013-0 No 5 mL, Memoria Flush 0.9% 224 Route: l 18:46: IVP, Drug Siler Form: INJ, Dosing Weight 79.545, kg, PRN, PRN Line Flush, Start date: 11/22/13 12:46:00, Duration: 30 day, Stop date: 12/22/13 13:45:00(S anthony as: BD Posiflush) Benicar 20 Yes Rj 20 mg, 1 M emoria mg oral 2-05 Amia tab, PO, l tablet 15:06: Daily, 30 [...] n 55 tab, Substituti on Allowed, TAB Camilla Yes Rj 1-2 tab, Memori a 7.5/325 2-05 Maia PO, Q4-6H, l oral tablet 15:06: PRN, 20 Her bertrand 43 tab, Pain, Substituti on Allowed, Maintenanc e Camilla 2012- Yes Rj 1-2 tab, Memori a 7.5/325 2-05 Maia PO, Q4-6H, l oral tablet 15:06: PRN, 20 Her bertrand 43 tab, Pain, Substituti on Allowed, Maintenanc e Camilla Yes Rj 1-2 tab, Memori a 7.5/325 2-05 Maia PO, Q4-6H, l oral tablet 15:06: PRN, 20 Her bertrand 43 tab, Pain, Substituti on Allowed, Maintenanc e Camilla Yes Rj 1-2 tab, Memori a 7.5/325 2-05 Maia PO, Q4-6H, l oral tablet 15:06: PRN, 20 Her bertrand 43 tab, Pain, Substituti on Allowed, Maintenanc e Motrin 0 No Rj 600 mg, 1 [place] jessi 2-05 Maia tab, l 14:29: Route: PO, Siler 00 Drug form: TAB, ONCE, Dosing Weight [...] 2-05 Maia tab, l 14:29: Route: PO, Siler 00 Drug form: TAB, ONCE, Dosing Weight 79.545, kg, Priority: STAT, Start date: 11/03/12 8:29:00, Stop date: 11/03/12 8:29:00 clonidine 2012-0 No Carolina 0.1 mg, 1 [facility] 2-05 Jackie tab, l 13:48: Route: PO, Momo 00 Drug form: TAB, [...] ONCE, Start date: 01/08/12 17:00:00, 1,000 ml Camilla 5/325 No Mohan 1 tab, [facility] oral tablet 4- Ahmed Route: PO, l 21:22: ONCE, Start date: 01/08/12 16:22:00, Stop date: 01/08/12 16:22:00 Camilla 5/325 No Mohan 1 tab, [facility] oral tablet - Ahmed Route: PO, l 21:22: ONCE, Start date: 01/08/12 16:22:00, Stop date: 01/08/12 16:22:00 Camilla 5/325 No Mohan 1 tab, [facility] oral tablet - Ahmed Route: PO, l 21:22: ONCE, Start date: 01/08/12 16:22:00, Stop date: 01/08/12 16:22:00 Camilla 5/325 No Mohan 1 tab, [facility] oral [...] Memoria 4-11 Allen Rate: l 19:56: 1,000 Siler 00 ml/hr, Infuse over: 1 hr, Route: IV, Dosing Weight 115.5 kg, Total Volume: 1,000, Start date: 01/08/12 14:56:00, Duration: 30 day, Stop date: 02/07/12 14:55:00 NS 1,000 mL No Manuel M 1,000 mL, [facility] 411 Allen Rate: l 19:56: 1,000 Siler 00 ml/hr, Infuse over: 1 hr, Route: IV, Dosing Weight 115.5 kg, Total Volume: 1,000, Start date: 01/08/12 14:56:00, Duration: 30 day, Stop date: 02/07/12 14:55:00 NS 1,000 mL No Manuel M 1,000 mL, [facility] 4 Allen Rate: l 19:56: 1,000 Siler 00 ml/hr, Infuse over: 1 hr, Route: IV, Dosing Weight 115.5 kg, Total Volume: 1,000, Start date: 01/08/12 14:56:00, Duration: 30 day, Stop date: 02/07/12 14:55:00 Naprosyn Yes Mohan 375 mg, Me moria 375 mg oral 4-11 Ahmed PO, BID, l tablet 18:55: PRN, 30 Siler 47 tab, Pain, Substituti on Allowed Naprosyn Yes Mohan 375 mg, Me moria 375 mg oral 4-11 Ahmed PO, BID, l tablet 18:55: PRN, 30 Siler 47 tab, Pain, Substituti on Allowed Naprosyn [...] virus 2018-06-29 Completed [facility] vaccine, live, 00:00:00 Siler trivalent influenza virus 2018-06-29 Completed [facility] vaccine, live, 00:00:00 Siler trivalent influenza virus 2018-06-29 Completed [facility] vaccine, live, 00:00:00 Siler trivalent influenza virus 2018-06-29 Completed [facility] vaccine, [...] l vaccine 00:00:00 Momo hepatitis B adult 2018-05-18 Completed [facility] l vaccine 00:00:00 Momo hepatitis B adult 2018-05-18 Completed [facility] l vaccine 00:00:00 Siler hepatitis B adult 2018-05-18 Completed [facility] l vaccine 00:00:00 Siler hepatitis B adult 2018-01-23 Completed [facility] l vaccine 00:00:00 Siler hepatitis B adult 2018-01-23 Completed [facility] l vaccine 00:00:00 Siler hepatitis B adult 2018-01-23 Completed [facility] l vaccine 00:00:00 Momo hepatitis B adult 2018-01-23 Completed [facility] l vaccine 00:00:00 Momo hepatitis B adult 2017-12-22 Completed [facility] l vaccine 00:00:00 Siler hepatitis B adult 2017-12-22 Completed [facility] l vaccine 00:00:00 Momo hepatitis B adult 2017-12-22 Completed [facility] l vaccine 00:00:00 Siler hepatitis B adult 2017-12-22 Completed [facility] l vaccine 00:00:00 Siler hepatitis B adult 2017-11-24 Completed [facility] l vaccine 00:00:00 Momo hepatitis B adult 2017-11-24 Completed [facility] l vaccine 00:00:00 Siler hepatitis B adult 2017-11-24 Completed [facility] l vaccine 00:00:00 Siler hepatitis B adult 2017-11-24 Completed [facility] l vaccine 00:00:00 Momo hepatitis B adult 2017-10-03 Completed [facility] l vaccine 00:00:00 Siler hepatitis B adult 2017-10-03 Completed [facility] l vaccine 00:00:00 Momo hepatitis B adult 2017-10-03 Completed [facility] l vaccine 00:00:00 Siler hepatitis B adult 2017-10-03 Completed [facility] l vaccine 00:00:00 Siler influenza virus 2017-06-09 Completed [facility] vaccine, inactivated 00:00:00 Herm elidia influenza virus 2017-06-09 Completed [facility] vaccine, inactivated 00:00:00 Herm elidia influenza virus 2017-06-09 Completed [facility] vaccine, inactivated 00:00:00 Herm elidia influenza virus 2017-06-09 Completed [facility] vaccine, inactivated 00:00:00 Herm elidia hepatitis B adult 2017-06-04 Completed [facility] l vaccine 00:00:00 Siler hepatitis B adult 2017-06-04 Completed [facility] l vaccine 00:00:00 Momo hepatitis B adult 2017-06-04 Completed [facility] l vaccine 00:00:00 Siler hepatitis B adult 2017-06-04 Completed [facility] l vaccine 00:00:00 Siler hepatitis B adult 2017-05-02 Completed [facility] l vaccine 00:00:00 Momo hepatitis B adult 2017-05-02 Completed [facility] l vaccine 00:00:00 Siler hepatitis B adult 2017-05-02 Completed [facility] l vaccine 00:00:00 Momo hepatitis B adult 2017-05-02 Completed [facility] l vaccine 00:00:00 Siler pneumococcal 2017-04-11 Completed [facility] 13-valent vaccine 00:32:00 Momo pneumococcal 2017-04-11 Completed [facility] 13-valent vaccine 00:32:00 Momo pneumococcal 2017-04-11 Completed [facility] 13-valent vaccine 00:32:00 Siler pneumococcal 2017-04-11 Completed [facility] 13-valent vaccine 00:32:00 Momo pneumococcal 2017-04-11 Completed [facility] 23-valent vaccine 00:00:00 Momo pneumococcal 2017-04-11 Completed [facility] 23-valent vaccine 00:00:00 Siler pneumococcal 2017-04-11 Completed [facility] 23-valent vaccine 00:00:00 Siler pneumococcal 2017-04-11 Completed [facility] 23-valent vaccine 00:00:00 Momo hepatitis B adult 2017-03-29 Completed [facility] l vaccine 00:00:00 Momo hepatitis B adult 2017-03-29 Completed [facility] l vaccine 00:00:00 Siler hepatitis B adult 2017-03-29 Completed [facility] l vaccine 00:00:00 Momo hepatitis B adult 2017-03-29 Completed [facility] l vaccine 00:00:00 Siler Vital Signs Vital Name Observation Time Observation Value Comments Source Systolic blood 2022-12-02 22:30:00 159 mm[Hg] Univer sity of pressure [facility] Diastolic blood 2022-12-02 22:30:00 99 mm[Hg] Unive rsity of [facility] Heart rate 2022-12-02 22:30:00 78 /min [facility] Respiratory rate 2022-12-02 22:30:00 18 /min [facility] Oxygen saturation in 2022-12-02 22:30:00 100 /min [facility] Arterial blood by [facility] Pulse oximetry Branch Body temperature 2022-12-02 17:38:00 36.33 Brittany [facility] Body height 2022-12-02 17:38:00 170.2 cm [facility] Body weight 2022-12-02 17:38:00 92.987 kg [facility] BMI 2022-12-02 17:38:00 32.11 kg/m2 [facility] Systolic (mm Hg) 2022-12-14 12:49:16 Tico rial Momo Diastolic (mm Hg) 2022-12-14 12:49:16 Mem orial Siler Heart Rate 2022-12-14 12:49:16 [facility] Momo Temperature Oral (F) 2022-12-14 12:49:02 98.3 F [facility] Respitory Rate 2022-12-09 15:09:00 Memori al Momo Respitory Rate 2022-12-09 15:00:00 Memori al Momo Systolic (mm Hg) 2022-12-09 15:00:00 Tico rial Momo Diastolic (mm Hg) 2022-12-09 15:00:00 Mem orial Momo Temperature Oral (F) 2022-12-09 15:00:00 98.5 F [facility] Respitory Rate 2022-12-09 14:45:00 Memori al Momo Systolic (mm Hg) 2022-12-09 14:45:00 Tico rial Momo Diastolic (mm Hg) 2022-12-09 14:45:00 Mem orial Siler Systolic (mm Hg) 2022-12-09 14:30:00 Tico rial Siler Diastolic (mm Hg) 2022-12-09 14:30:00 Mem orial Momo Temperature Oral (F) 2022-12-09 11:00:00 98.3 F [facility] Heart Rate 2022-12-09 04:14:31 [facility] Heart Rate 2022-12-09 04:13:28 [facility] Temperature Oral (F) 2022-12-09 04:13:00 97.9 F [facility] Heart Rate 2022-12-09 02:07:00 [facility] Momo Temperature Oral (F) 2022-12-04 21:47:07 98.1 F [facility] Height 2022-12-03 02:25:00 5 [ft_i] [facility] Weight 2022-12-03 02:25:00 [facility] BMI Calculated 2022-12-03 02:25:00 [facility] al Siler Temperature Oral (F) 2019-08-20 19:22:00 98.6 F [facility] Heart Rate 2019-08-20 19:22:00 [facility] Momo Respitory Rate 2019-08-20 19:22:00 [facility] al Momo Systolic (mm Hg) 2019-08-20 19:22:00 Tico rial Siler Diastolic (mm Hg) 2019-08-20 19:22:00 Mem orial Momo Temperature Oral (F) 2019-08-20 18:00:00 98.6 F [facility] Heart Rate 2019-08-20 18:00:00 [facility] Momo Respitory Rate 2019-08-20 18:00:00 Mem[facility] al Siler Systolic (mm Hg) 2019-08-20 18:00:00 Tico rial Momo Diastolic (mm Hg) 2019-08-20 18:00:00 Mem orial Siler Temperature Oral (F) 2019-08-20 14:01:00 98.2 F [facility] Heart Rate 2019-08-20 14:01:00 [facility] Momo Respitory Rate 2019-08-20 14:01:00 Mem[facility] al Siler Systolic (mm Hg) 2019-08-20 14:01:00 Tico rial Momo Diastolic (mm Hg) 2019-08-20 14:01:00 Mem orial Siler Height 2019-08-19 18:35:00 170.18 cm [facility] BMI Calculated 2019-08-19 18:35:00 [facility] Momo Weight 2019-08-19 18:35:00 [facility] Systolic (mm Hg) 2019-01-26 20:26:00 Tico rial Siler Diastolic (mm Hg) 2019-01-26 20:26:00 Mem orial Siler Heart Rate 2019-01-26 20:26:00 [facility] Momo Systolic (mm Hg) 2019-01-21 19:27:00 Tico rial Siler Diastolic (mm Hg) 2019-01-21 19:27:00 Mem orial Momo Heart Rate 2019-01-21 19:27:00 [facility] Momo Heart Rate 2019-01-19 18:16:00 [facility] Systolic (mm Hg) 2019-01-19 18:16:00 Tico rial Siler Diastolic (mm Hg) 2019-01-19 18:16:00 Mem orial Momo Systolic (mm Hg) 2018-12-17 19:33:00 Tico rial Siler Diastolic (mm Hg) 2018-12-17 19:33:00 Mem orial Momo Heart Rate 2018-12-17 19:33:00 [facility] Siler Systolic (mm Hg) 2018-12-15 17:50:00 Tico rial Siler Diastolic (mm Hg) 2018-12-15 17:50:00 Mem orial Momo Heart Rate 2018-12-15 17:50:00 [facility] Height 2018-09-23 23:23:00 170.18 cm [facility] BMI Calculated 2018-09-23 23:23:00 [facility] al Momo Weight 2018-09-23 23:23:00 [facility] Momo BMI Calculated 2018-08-25 19:57:00 [facility] al Siler Weight 2018-08-25 19:57:00 [facility] Height 2018-08-25 19:57:00 167.64 cm [facility] Momo Systolic (mm Hg) 2018-08-25 19:57:00 Tico rial Momo Diastolic (mm Hg) 2018-08-25 19:57:00 Mem orial Momo Heart Rate 2018-08-25 19:57:00 [facility] Momo Temperature Oral (F) 2018-08-25 19:57:00 98.1 F [facility] Momo Systolic (mm Hg) 2018-07-30 16:56:00 Tico rial Momo Diastolic (mm Hg) 2018-07-30 16:56:00 Mem orial Siler Heart Rate 2018-07-30 16:56:00 [facility] S[facility] Systolic (mm Hg) 2018-07-28 19:50:00 Tico rial Siler Diastolic (mm Hg) 2018-07-28 19:50:00 Mem orial Siler Respitory Rate 2018-07-28 19:50:00 Memori al Siler Temperature Oral (F) 2018-07-28 19:50:00 98 F [facility] S[facility] Respitory Rate 2018-07-28 19:12:00 Memori al Momo Systolic (mm Hg) 2018-07-28 19:12:00 Tico rial Momo Diastolic (mm Hg) 2018-07-28 19:12:00 Mem orial Momo Systolic (mm Hg) 2018-07-28 18:58:00 Tico rial Momo Diastolic (mm Hg) 2018-07-28 18:58:00 Mem orial Siler Respitory Rate 2018-07-28 18:58:00 [facility] al Siler Heart Rate 2018-07-28 18:58:00 [facility] Weight 2018-07-28 17:47:00 [facility] Temperature Oral (F) 2018-07-28 17:47:00 98.7 F [facility] Momo Heart Rate 2018-07-28 17:47:00 [facility] S[facility] Systolic (mm Hg) 2018-07-28 15:19:00 Tico rial Momo Diastolic (mm Hg) 2018-07-28 15:19:00 Mem orial Momo Heart Rate 2018-07-28 15:19:00 [facility] Siler Systolic (mm Hg) 2018-07-23 16:28:00 Tico rial Momo Diastolic (mm Hg) 2018-07-23 16:28:00 Mem orial Momo Heart Rate 2018-07-23 16:28:00 [facility] Momo Heart Rate 2018-07-16 16:29:00 [facility] S[facility] Systolic (mm Hg) 2018-07-16 16:29:00 Tico rial Momo Diastolic (mm Hg) 2018-07-16 16:29:00 Mem orial Siler Systolic (mm Hg) 2018 17:51:00 Tico rial Siler Diastolic (mm Hg) 2018 17:51:00 Mem orial Momo Heart Rate 2018 17:51:00 [facility] Momo Systolic (mm Hg) 2018-07-07 17:55:00 Tico rial Siler Diastolic (mm Hg) 2018-07-07 17:55:00 Mem orial Siler Heart Rate 2018-07-07 17:55:00 [facility] Momo Heart Rate 2018-06-16 16:31:00 [facility] S[facility] Systolic (mm Hg) 2018-06-16 16:31:00 Tico rial Siler Diastolic (mm Hg) 2018-06-16 16:31:00 Mem orial Momo Systolic (mm Hg) 2018-06-11 16:04:00 Tico rial Siler Diastolic (mm Hg) 2018-06-11 16:04:00 Mem orial Siler Heart Rate 2018-06-11 16:04:00 [facility] Momo Heart Rate 2018-06-04 17:34:00 [facility] S[facility] Systolic (mm Hg) 2018-06-04 17:34:00 Tico rial Siler Diastolic (mm Hg) 2018-06-04 17:34:00 Mem orial Momo Weight 2018-04-14 14:24:00 [facility] S[facility] BMI Calculated 2018-04-14 14:24:00 [facility] al Momo Height 2018-04-14 14:24:00 167.64 cm [facility] Heart Rate 2018-04-14 14:24:00 [facility] Momo Temperature Oral (F) 2018-04-14 14:24:00 98.3 F [facility] Systolic (mm Hg) 2018-04-14 14:24:00 Tico rial Momo Diastolic (mm Hg) 2018-04-14 14:24:00 Mem orial Siler BMI Calculated 2018-03-02 13:49:00 Memori al Momo Weight 2018-03-02 13:49:00 [facility] S[facility] Height 2018-03-02 13:49:00 177.8 cm [facility] Temperature Oral (F) 2018-03-02 11:50:00 98 F [facility] Momo Systolic (mm Hg) 2018-03-02 11:50:00 Tico rial Siler Diastolic (mm Hg) 2018-03-02 11:50:00 Mem orial Momo Respitory Rate 2018-03-02 11:50:00 Memori al Momo Height 2018-02-25 19:39:00 167.64 cm [facility] Weight 2018-02-25 19:39:00 [facility] Momo BMI Calculated 2018-02-25 19:39:00 Memori al Siler Systolic (mm Hg) 2018-02-25 19:39:00 Tico rial Siler Diastolic (mm Hg) 2018-02-25 19:39:00 Mem orial Siler Heart Rate 2018-02-25 19:39:00 [facility] Momo Temperature Oral (F) 2018-02-25 19:39:00 97.7 F [facility] S[facility] Systolic (mm Hg) 2018-02-24 23:15:00 Tico rial Momo Diastolic (mm Hg) 2018-02-24 23:15:00 Mem orial Momo Systolic (mm Hg) 2018-02-24 23:00:00 Tico rial Momo Diastolic (mm Hg) 2018-02-24 23:00:00 Mem orial Siler Systolic (mm Hg) 2018-02-24 22:30:00 Tico rial Momo Diastolic (mm Hg) 2018-02-24 22:30:00 Mem orial Momo Respitory Rate 2018-02-24 22:27:00 Memori al Siler Heart Rate 2018-02-24 22:27:00 [facility] Siler Respitory Rate 2018-02-24 22:00:00 [facility] Momo Heart Rate 2018-02-24 22:00:00 [facility] Momo Respitory Rate 2018-02-24 21:45:00 [facility] al Siler Heart Rate 2018-02-24 21:45:00 [facility] Momo BMI Calculated 2018-02-24 21:28:00 [facility] Momo Height 2018-02-24 21:28:00 170.18 cm [facility] Weight 2018-02-24 21:28:00 [facility] Momo Temperature Oral (F) 2018-02-24 21:28:00 98.4 F [facility] Heart Rate 2018-01-27 22:41:00 [facility] S[facility] Temperature Oral (F) 2018-01-27 22:41:00 99 F [facility] Respitory Rate 2018-01-27 22:41:00 Mem[facility] al Momo Systolic (mm Hg) 2018-01-27 22:41:00 Tico rial Momo Diastolic (mm Hg) 2018-01-27 22:41:00 Mem orial Momo Systolic (mm Hg) 2018-01-27 19:47:00 Tico rial Siler Diastolic (mm Hg) 2018-01-27 19:47:00 Mem orial Momo Heart Rate 2018-01-27 19:47:00 [facility] S[facility] BMI Calculated 2018-01-27 19:47:00 [facility] al Momo Weight 2018-01-27 19:47:00 [facility] Momo Respitory Rate 2018-01-27 19:47:00 [facility] Siler Temperature Oral (F) 2018-01-27 19:47:00 97.7 F [facility] Height 2018-01-27 19:47:00 170.18 cm [facility] Momo Weight 2018-01-27 13:45:00 [facility] S[facility] BMI Calculated 2018-01-27 13:45:00 [facility] Siler Heart Rate 2018-01-27 13:45:00 [facility] S[facility] Respitory Rate 2018-01-27 13:45:00 [facility] Siler Height 2018-01-27 13:45:00 168 cm [facility] Systolic (mm Hg) 2018-01-27 13:45:00 Tico rial Momo Diastolic (mm Hg) 2018-01-27 13:45:00 Mem orial Momo Systolic (mm Hg) 2018-01-01 17:45:00 Tico rial Siler Diastolic (mm Hg) 2018-01-01 17:45:00 Mem orial Siler Respitory Rate 2018-01-01 17:45:00 Memori al Siler Respitory Rate 2018-01-01 17:30:00 [facility] Siler Systolic (mm Hg) 2018-01-01 17:30:00 Tico rial Momo Diastolic (mm Hg) 2018-01-01 17:30:00 Mem orial Momo Respitory Rate 2018-01-01 17:15:00 Memori al Siler Systolic (mm Hg) 2018-01-01 17:15:00 Tico rial Siler Diastolic (mm Hg) 2018-01-01 17:15:00 Mem orial Siler Temperature Oral (F) 2018-01-01 12:03:00 97.8 F [facility] BMI Calculated 2017-12-31 20:21:00 [facility] Siler Weight 2017-12-31 20:21:00 [facility] S[facility] Height 2017-12-31 20:21:00 170.18 cm [facility] Momo Systolic (mm Hg) 2017-11-13 22:30:00 Tico rial Momo Diastolic (mm Hg) 2017-11-13 22:30:00 Mem orial Siler Respitory Rate 2017-11-13 22:30:00 Memori al Siler Systolic (mm Hg) 2017-11-13 22:15:00 Tico rial Siler Diastolic (mm Hg) 2017-11-13 22:15:00 Mem orial Siler Respitory Rate 2017-11-13 22:15:00 Memori al Momo Respitory Rate 2017-11-13 22:00:00 Memori al Momo Systolic (mm Hg) 2017-11-13 22:00:00 Tico rial Siler Diastolic (mm Hg) 2017-11-13 22:00:00 Mem orial Siler Temperature Oral (F) 2017-11-13 21:00:00 97.7 F [facility] Temperature Oral (F) 2017-11-13 17:30:00 98.2 F [facility] Momo BMI Calculated 2017-11-13 15:57:00 [facility] al Momo Height 2017-11-13 15:57:00 170.18 cm [facility] Weight 2017-11-13 15:57:00 [facility] Momo Systolic (mm Hg) 2017-09-01 15:19:00 Tico rial Momo Diastolic (mm Hg) 2017-09-01 15:19:00 Mem orial Siler BMI Calculated 2017-09-01 15:19:00 [facility] Siler Weight 2017-09-01 15:19:00 [facility] Momo Heart Rate 2017-09-01 15:19:00 [facility] Momo Temperature Oral (F) 2017-09-01 15:19:00 97.7 F [facility] Height 2017-09-01 15:19:00 170.18 cm [facility] Systolic (mm Hg) 2017-06-26 18:00:00 Tico rial Momo Diastolic (mm Hg) 2017-06-26 18:00:00 Mem orial Momo Respitory Rate 2017-06-26 18:00:00 Memori al Momo Systolic (mm Hg) 2017-06-26 17:45:00 Tico rial Siler Diastolic (mm Hg) 2017-06-26 17:45:00 Mem orial Momo Respitory Rate 2017-06-26 17:45:00 [facility] Siler Respitory Rate 2017-06-26 17:30:00 Mem[facility] al Momo Systolic (mm Hg) 2017-06-26 17:30:00 Tico rial Momo Diastolic (mm Hg) 2017-06-26 17:30:00 Mem orial Siler BMI Calculated 2017-06-26 12:26:00 [facility] Momo Weight 2017-06-26 12:26:00 [facility] Height 2017-06-26 12:26:00 170.18 cm [facility] Temperature Oral (F) 2017-06-26 11:45:00 98.3 F [facility] Systolic (mm Hg) 2017-05-15 19:15:00 Tico rial Siler Diastolic (mm Hg) 2017-05-15 19:15:00 Mem orial Siler Respitory Rate 2017-05-15 19:15:00 [facility] Siler Respitory Rate 2017-05-15 19:00:00 Memori al Momo Systolic (mm Hg) 2017-05-15 19:00:00 Tico rial Siler Diastolic (mm Hg) 2017-05-15 19:00:00 Mem orial Momo Respitory Rate 2017-05-15 18:45:00 [facility] al Siler Systolic (mm Hg) 2017-05-15 18:45:00 Tico rial Siler Diastolic (mm Hg) 2017-05-15 18:45:00 Mem orial Momo Respitory Rate 2017-05-09 23:08:00 [facility] Siler Temperature Oral (F) 2017-05-09 23:08:00 98.2 F [facility] Weight 2017-05-09 23:08:00 [facility] BMI Calculated 2017-05-09 23:08:00 [facility] Momo Heart Rate 2017-05-09 23:08:00 [facility]o Systolic (mm Hg) 2017-05-09 23:08:00 Tico rial Siler Diastolic (mm Hg) 2017-05-09 23:08:00 Mem o[facility] Siler Height 2017-05-09 23:08:00 170.18 cm [facility] Weight 2017-05-08 18:44:00 [facility] BMI Calculated 2017-05-08 18:44:00 [facility] Momo Height 2017-05-08 18:44:00 170.18 cm [facility] Systolic (mm Hg) 2017-04-11 00:41:00 Tico rial Momo Diastolic (mm Hg) 2017-04-11 00:41:00 Mem o[facility] Siler Heart Rate 2017-04-11 00:41:00 [facility] Respitory Rate 2017-04-11 00:41:00 [facility] Siler Temperature Oral (F) 2017-04-11 00:41:00 98.0 F [facility] Temperature Oral (F) 2017-04-10 20:33:00 98.2 F [facility] Heart Rate 2017-04-10 20:33:00 [facility] Systolic (mm Hg) 2017-04-10 20:33:00 Tico rial Momo Diastolic (mm Hg) 2017-04-10 20:33:00 Mem o[facility] Siler Systolic (mm Hg) 2017-04-10 19:33:00 Tico rial Momo Diastolic (mm Hg) 2017-04-10 19:33:00 [facility] o[facility] Siler Heart Rate 2017-04-10 19:33:00 [facility] Respitory Rate 2017-04-10 17:03:00 [facility] Siler Temperature Oral (F) 2017-04-10 17:03:00 97.8 F [facility] Respitory Rate 2017-04-10 08:00:00 [facility] Siler BMI Calculated 2017-04-10 01:28:00 [facility] Momo Height 2017-04-10 01:28:00 170.18 cm [facility] Weight 2017-04-10 01:28:00 [facility] Weight 2017-04-09 22:17:00 [facility] Heart Rate 2017-03-18 16:54:00 [facility] Systolic (mm Hg) 2017-03-18 16:54:00 Tico rial Momo Diastolic (mm Hg) 2017-03-18 16:54:00 Mem orial Momo Heart Rate 2017-03-18 16:25:00 [facility] Respitory Rate 2017-03-18 16:25:00 [facility] Momo Systolic (mm Hg) 2017-03-18 16:25:00 Tico rial Siler Diastolic (mm Hg) 2017-03-18 16:25:00 Mem o[facility] Siler Temperature Oral (F) 2017-03-18 16:25:00 97.9 F [facility] Temperature Oral (F) 2017-03-18 12:41:00 98.1 F [facility] Heart Rate 2017-03-18 12:41:00 [facility] Respitory Rate 2017-03-18 12:41:00 [facility] Siler Diastolic (mm Hg) 2017-03-18 12:41:00 Mem orial Momo Systolic (mm Hg) 2017-03-18 12:41:00 Tico rial Siler Temperature Oral (F) 2017-03-18 05:07:00 98.7 F [facility] Respitory Rate 2017-03-17 17:00:00 [facility] Siler Weight 2017-03-11 03:29:00 [facility] BMI Calculated 2017-03-11 03:29:00 [facility] Height 2017-03-11 03:29:00 170.18 cm [facility] Weight 2017-03-10 21:27:00 [facility] Respitory Rate 2013-11-26 23:08:00 [facility] al Momo Diastolic (mm Hg) 2013-11-26 21:50:00 Mem o[facility] Momo Systolic (mm Hg) 2013-11-26 21:50:00 Tico rial Momo Respitory Rate 2013-11-26 21:50:00 [facility]iler Respitory Rate 2013-11-26 21:02:00 [facility]iler Systolic (mm Hg) 2013-11-26 20:00:00 Tico rial Momo Diastolic (mm Hg) 2013-11-26 20:00:00 [facility] Siler Systolic (mm Hg) 2013-11-26 18:00:00 Tico rial Momo Diastolic (mm Hg) 2013-11-26 18:00:00 [facility] Siler Temperature Oral (F) 2013-11-26 18:00:00 98 F [facility] Temperature Oral (F) 2013-11-26 10:30:00 98.7 F [facility] Temperature Oral (F) 2013-11-26 08:00:00 98.5 F [facility] Weight 2013-11-22 21:37:00 [facility] Heart Rate 2013-11-22 20:55:00 [facility] Heart Rate 2013-11-22 20:24:00 [facility] Heart Rate 2013-11-22 20:04:00 [facility] Height 2013-11-22 18:42:00 170.18 cm [facility] Weight 2013-11-22 18:42:00 [facility] BMI Calculated 2013-11-22 18:42:00 [facility] Weight 2012-11-03 13:39:00 [facility] Height 2012-11-03 13:39:00 170.18 cm [facility] Height 2012-01-08 15:12:00 170.18 cm [facility] Weight 2012-01-08 15:12:00 [facility] Procedures Procedure Date / Time Performing Clinician Source Performed US DUPLEX VENOUS ARM 2022-12-02 18:57:00 Roberto Pratt [facility] LEFT - BY VASCULAR LAB [facility] COMP. METABOLIC PANEL 2022-12-02 18:34:00 Roberto Pratt [facility] ([id number]) Medical Branch CBC WITH DIFF 2022-12-02 18:34:00 Roberto Pratt [place] [facility] PROTHROMBIN TIME / INR 2022-12-02 18:34:00 Roberto Pratt [facility] rsity of [facility] ACTIVATED PARTIAL 2022-12-02 18:34:00 Roberto Pratt [facility] THRMPLAS [facility] Colonoscopy 2018-09-24 06:00:00 Otto bertrand Arteriovenous fistula 2017-05-15 05:00:00 Shannon Rivers operation Insertion of tunneled 2016-09-29 00:00:00 Shannon Rivers central venous catheter using fluoroscopic guidance<sup>1</sup> Encounters Start End Encounter Admission Attending Care Care Encounter Source Date/Time Date/Time Type Type Clinicians Facility Department ID 2023-05-28 OD CARMINACAREY CARMINAIE [id number] Sd moria 15:44:33 00 l Siler 2023-03-26 OD CARMINAIE CARMINAIE [id number] Me moria 13:26:25 00 l Siler 2022-12-11 Outpatient [facility] [id number] [place] 07:29:56 [id number] [facility] 2022-12-06 Outpatient [facility] [id number] [place] 09:33:[id number] [place] [address] 2022-12-04 Inpatient STEFANY COTA [facility] [id number] [facility] 13:30:55 2022-12-03 Outpatient [facility] [id number] [place] 14:02:[id number] [place] [address] 2022-12-05 2022-12-14 Inpatient [facility] [id number] Memoria 16:53:00 17:17:00 Siler 65 l [facility] 2022-12-05 2022-12-14 Inpatient CAREY [facility] [id number] Memoria 16:53:00 17:17:00 Siler 65 l [facility] 2022-12-05 2022-12-14 Outpatient [place]ITO [place] SE [id number] 10:53:00 12:17:00 Pranavnoemi 65 [facility] 2022-12-05 2022-12-14 Inpatient U [facility] [id number] MH 10:53:00 12:17:00 [facility]-11 Out[facility] YAZ [facility] [id number] [place] 13:30:00 13:30:00 [facility] 2022-12-09 2022-12-09 Outpatient YAZ, [facility] [id number] [place] 14:30:00 14:30:00 [facility] 2022-12-06 2022-12-06 Outpatient DONAL, [facility] [id number] [place] 09:30:00 09:30:00 [facility] 2022-12-05 2022-12-05 Outpatient CARMINA BrannonSE [place] [id number] 10:53:00 10:53:00 En-Szu 65 2022-12-03 2022-12-03 Outpatient DONAL, [facility] [id number] [place] 11:30:00 11:30:00 [facility] 2022-12-02 2022-12-02 [facility] [id number] Univers 11:37:00 16:41:00 [facility] 2022-12-02 2022-12-02 [facility] [id number] Univers 11:37:00 16:41:00 Roberto VALENTINO 350.1.13.10 i ty of [place] 4.2.7.2.686 [facility] [phone] [place] [address] [address] 2022-04-19 2022-04-19 Outpatient R [facility] [id number] Univers 09:00:00 09:00:00 [place] ity o f [facility] 2022-04-10 2022-04-10 Telephone [facility] 1.2.840.114 [id number] Univers 00:00:00 00:00:00 Andrea A MULTISPEC 350.1.13.10 ity of IALTY 4.2.7.2.686 [facility] [phone] [facility] AND [address] [facility] 2022-04-10 2022-04-10 Telephone [facility] 1.2.840.114 [id number] Univers 00:00:00 00:00:00 Andrea A MULTISPEC 350.1.13.10 ity of [place]AL[place] 4.2.7.2.686 [facility] [place] [phone] [facility] AND [place] [address] [facility] 2022-04-08 2022-04-08 Committee Gema-Rebel [facility] 1.2.840.114 [id number] Univers 00:00:00 00:00:00 Review Elidia alegre MULTISPEC 350.1.13.10 ity of [place] 4.2.7.2.686 [facility] [phone] [address] DIABETES CLINIC 2022-03-27 2022-03-27 High Value Associate Vtc-Lab [facility] 1.2.840.114 [id number] Univers 13:00:00 13:15:00 Visit Houston Chang MULTISPEC 350.1.13 .10 ity of [place] 4.2.7.2.68[facility] [place] [phone] [facility] [address] [facility] 2022-03-27 2022-03-27 Outpatient R [facility] [id number] Univers 13:00:00 13:00:00 [place] humphreys o [facility] 2022-03-27 2022-03-27 Outpatient R [facility] [id number] Univers 13:00:00 13:00:00 [place] humphreys o [facility] 2022-03-27 2022-03-27 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 Social [facility] 1.2.840.114 [id number] Univers 11:00:00 11:58:21 Management Houston Chang MULTISPEC 350.1 .13.10 ity of [place] 4.2.7.2.686 [facility] [place] [id number] [address] DIABETES CLINIC 2022-03-27 2022-03-27 Office Owen Stone [facility] 1.2.840.114 [id number] Univers 10:00:00 11:58:04 Visit Houston Chang MULTISPEC 350.1.13 .10 ity of [place]AL[place] 4.2.7.2.686 [facility] [place] [id number] [facility] YANEZ [address] DIABETES [facility] 2022-03-27 2022-03-27 Nurse Renal, Transplant Class [facility] 1. 2.840.114 [id number] [facility] 08:30:00 09:15:00 Visit Houston Chang MULTISPEC 350.1.13 .10 ity of IALTY 4.2.7.2.686 [facility] [phone] [facility] [address] DIABETES [facility] 2019-08-19 2019-08-20 Emergency nullFlavo [facility] [id number] Memoria 18:32:29 19:53:00 mauricio Barr 21 l [place] 2019-08-19 2019-08-20 Emergency nullFlavo [facility] [id number] Memoria 18:32:29 19:53:00 r Momo 21 l [place] 2019-08-19 2019-08-20 Outpatient CEDRIC Cannon [facility] [id number] 12:32:29 13:53:00 Jeromy Baird TrishaJam 2019-08-19 2019-08-19 Emergency E MHFB MHFB [id number] FB 12:32:00 12:32:00 2019-08-11 2019-08-11 Emergency E ELIUD MAY [facility] [id number] [facility] 07:59:00 09:20:00 Medica l Center 2019-06-22 2019-07-22 OP nullFlavo Transplant [id number] Memoria 12:20:00 04:59:00 Transplant r Center 05 l [facility] 2019-06-22 2019-07-22 OP nullFlavo Transplant [id number] Memoria 12:20:00 04:59:00 Transplant r Center 05 l [facility] 2019-06-22 2019-07-21 Outpatient De [facility] [id number] 07:20:00 23:59:00 GolovineClara 2019-06-22 2019-06-22 Outpatient [facility] [id number] [facility] 07:20:00 07:20:00 2019-05-26 2019-05-26 Ambulatory nullFlavo [facility] [id number] Memoria 20:00:00 20:00:00 [facility] 2019-05-26 2019-05-26 Ambulatory nullFlavo [facility] [id number] Memoria 20:00:00 20:00:00 Pre[facility]Reg r [facility] 2019-05-26 2019-05-26 Outpatient MHIE MHIE [id number] Memoria 15:00:00 15:00:00 gayle Barr 2019-05-26 2019-05-26 [id number] 15:00:00 15:00:00 Romi 08 Oliveira 2018-12-29 2019-01-28 Tots nullFlavo TIRR [id number] Memoria 16:57:00 04:59:00 Therapy r [facility] gayle Barr 2018-12-29 2019-01-28 Tots nullFlavo TIRR [id number] Memoria 16:57:00 04:59:00 Therapy r [facility] gayle Barr 2018-12-29 2019-01-27 Outpatient Erma TIRR MHTIRR [id number] 11:57:00 23:59:00 Romi Earn Oliveira 2018-11-26 2018-12-26 Tots nullFlavo TIRR [id number] Memoria 16:01:00 04:59:00 Therapy r [facility] gayle Barr 2018-11-26 2018-12-26 Tots nullFlavo TIRR [id number] Memoria 16:01:00 04:59:00 Therapy r [facility] gayle Barr 2018-11-26 2018-12-25 Outpatient [facility]niefield [id number] 10:01:00 23:59:00 Romi Eran Oliveira 2018-09-24 2018-09-24 Bedded nullFlavo [facility] [id number] Memoria 11:23:00 14:45:00 Outpatient mauricio Barr 20 l Isabell Marshall 2018-09-24 2018-09-24 Bedded nullFlavo [facility] [id number] Memoria 11:23:00 14:45:00 Outpatient r Momo 20 l [place] sweet 2018-09-24 2018-09-24 Outpatient CEDRIC Roper [facility] [id number] 05:23:00 08:45:00 Shnu Mohan 2018-08-26 2018-08-27 [place] [id number] Memoria 17:30:00 05:59:59 r Internal [address] [facility] [place] [place] 2018-08-26 2018-08-27 [place] [id number] Memoria 17:30:00 05:59:59 r Internal [address] [facility] [place] 2018-08-25 2018-08-27 Phone nullFlavo [facility] [id number] Memoria 20:42:00 05:59:59 Message r Gastroenter 02 l carl [facility] 2018-08-25 2018-08-27 Phone nullFlavo [facility] [id number] Memoria 20:42:00 05:59:59 Message r Gastroenter 02 l ed[facility]onelia [facility] 2018-08-26 2018-08-26 Outpatient MG MG [id number] 11:30:00 23:59:59 07 2018-08-25 2018-08-26 Outpatient MG MG [id number] 14:42:00 23:59:59 02 2018-08-26 2018-08-26 Outpatient MHIE CARMINAIE [id number] Memoria 11:30:00 11:30:00 07 gayle Barr 2018-08-25 2018-08-26 [place] [id number] Memoria 20:00:00 05:59:59 r Internal 06 l Medicine Momo Arthur 2018-08-25 2018-08-26 [place] [id number] Memoria 20:00:00 05:59:59 r Internal 06 l [facility] Momo Amadoberg 2018-08-25 2018-08-25 Outpatient Sannajohnniefield [facility] [id number] 14:00:00 23:59:59 Romi Oliveira 2018-08-25 2018-08-25 Outpatient MHIE MHIE [id number] Memoria 14:00:00 14:00:00 06 gayle Barr 2018-07-23 2018-08-22 Tots nullFlavo TIRR [id number] Memoria 15:08:00 05:59:00 Therapy r [facility] 02 gayle Barr 2018-07-23 2018-08-22 Tots nullFlavo TIRR [id number] Memoria 15:08:00 05:59:00 Therapy r [facility] 02 gayle Barr 2018-07-23 2018-08-21 Outpatient Haritha, MHTIRR MHTIRR [id number] 10:08:00 23:59:00 [facility] 02 2018-07-28 2018-07-28 Emergency nullFlavo [facility] [id number] Memoria 17:36:00 19:50:00 r Momo 19 gayle [place] Herma 2018-07-28 2018-07-28 Emergency nullFlavo [facility] [id number] Memoria 17:36:00 19:50:00 mauricio Murillo Joanna 2018-07-28 2018-07-28 Outpatient Carolee, MHSL MHSL [id number] 12:36:00 14:50:00 Valeri Meg Dupont 2018-06-18 2018-07-18 Tots nullFlavo TIRR [id number] Memoria 17:56:00 04:59:00 Therapy r [facility] 01 gayle Barr 2018-06-18 2018-07-18 Tots nullFlavo TIRR [id number] Memoria 17:56:00 04:59:00 Therapy r [facility] 01 gayle Barr 2018-06-18 2018-07-17 Outpatient De MHTIRR MHTIRR [id number] 12:56:00 23:59:00 Golyanelis, 01 Sada Uriarte 2018-05-19 2018-06-18 Tots nullFlavo TIRR [id number] Memoria 13:49:00 04:59:00 Therapy r [facility] 00 gayle Barr 2018-05-19 2018-06-18 Tots nullFlavo TIRR [id number] Memoria 13:49:00 04:59:00 Therapy r [facility] 00 gayle Grossmanann 2018-05-19 2018-06-17 Outpatient De MHTIRR MHTIRR [id number] 08:49:00 23:59:00 Golovine, Sada Uriarte 2018-04-14 2018-04-15 Outpatient nullFlavo [facility] 5 [id number] Memoria 15:00:00 04:59:59 r Medicine 05 gayle walsh 2018-04-14 2018-04-15 Outpatient nullFlavo MHMG Family 5 [id number] Memoria 15:00:00 04:59:59 r Medicine 05 gayle walsh 2018-04-14 2018-04-14 Outpatient Stevenson, MG MG [id number] 10:00:00 23:59:59 Shira 05 2018-04-14 2018-04-14 Outpatient MHIE MHIE [id number] Memoria 10:00:00 10:00:00 05 gayle Momo 2018-02-24 2018-03-26 Tots nullFlavo TIRR [id number] Memoria 13:00:00 04:59:00 Therapy r [facility] 01 gayle Barr 2018-02-24 2018-03-26 Tots nullFlavo TIRR [id number] Memoria 13:00:00 04:59:00 Therapy r [facility] 01 gayle Barr Momo 2018-02-24 2018-03-25 Outpatient Haritha, MHTIRR MHTIRR [id number] 08:00:00 23:59:00 Stephanie 01 2018-03-03 2018-03-04 Outpatient Elizabeth [facility], [facility] TELE [id number] [facility] 15:47:00 12:01:00 [facility] 2018-03-02 2018-03-02 Day nullFlavo [facility] [id number] Memoria 11:21:00 14:40:00 Surgery r Momo 16 l [facility] 2018-03-02 2018-03-02 Day nullFlavo [facility] [id number] Memoria 11:21:00 14:40:00 Surgery r Momo 16 l [facility] 2018-03-02 2018-03-02 Outpatient Juan Jose [facility] [id number] 06:21:00 09:40:00 Janak Burleson Fermín 2018-02-25 2018-02-27 Phone nullFlavo [facility] [id number] Memoria 14:08:00 04:59:59 Message r Internal 01 Annabelle Arthur 2018-02-25 2018-02-27 Phone nullFlavo [facility] [id number] Memoria 14:08:00 04:59:59 Message r [facility] 2018-02-25 2018-02-26 Outpatient MG MG [id number] 09:08:00 23:59:59 01 2018-02-25 2018-02-26 [place] [id number] Memoria 19:30:00 04:59:59 r Internal 04 l [facility] 2018-02-25 2018-02-26 [place] [id number] Memoria 19:30:00 04:59:59 r Internal 04 l [facility] 2018-01-27 2018-02-26 OP nullFlavo [facility] [id number] Memoria 13:44:00 04:59:00 Transplant r Siler 00 l Clinic - Transplant [facility] 2018-01-27 2018-02-26 OP nullFlavo [facility] [id number] Memoria 13:44:00 04:59:00 Transplant r Siler 00 l Clinic - Transplant Herm [facility] 2018-02-25 2018-02-25 Outpatient Graham, [facility] [id number] 14:30:00 23:59:59 Shira 04 2018-01-27 2018-02-25 Outpatient De [facility] [id number] 08:44:00 23:59:00 Kavin Clarkekspaolo Uriarte 2018-02-25 2018-02-25 Outpatient MHIE IE [id number] Memoria 14:30:00 14:30:00 Estrada Barr 2018-02-24 2018-02-24 Emergency nullFlavo [facility] [id number] Memoria 21:16:00 23:51:00 r Momo 17 l [place] 2018-02-24 2018-02-24 Emergency nullFlavo [facility] [id number] Memoria 21:16:00 23:51:00 r Momo 17 l [place] 2018-02-24 2018-02-24 Outpatient Aniceto, MHSL SL [id number] 16:16:00 18:51:00 Armond Miller 2018-01-27 2018-01-27 Emergency nullFlavo [facility] [id number] Memoria 19:45:00 22:45:00 r Momo 14 l [facility] 2018-01-27 2018-01-27 Emergency nullFlavo [facility] [id number] Memoria 19:45:00 22:45:00 r Momo 14 l [facility] 2018-01-27 2018-01-27 [facility] [id number] 14:45:00 17:45:00 , Malorie 14 2018-01-27 2018-01-27 [facility] [id number] 14:45:00 17:45:00 , Malorie 14 2018-01-01 2018-01-01 Day nullFlavo [facility] [id number] Memoria 11:13:00 18:10:00 Surgery r Momo 11 l [facility] 2018-01-01 2018-01-01 Day nullFlavo [facility] [id number] Memoria 11:13:00 18:10:00 Surgery r Momo 11 l [facility] 2018-01-01 2018-01-01 Outpatient Juan Jose [facility] [id number] 06:13:00 13:10:00 Janak Jaycob Fermín 2017-11-13 2017-11-13 Observatio nullFlavo [facility] [id number] Memoria 19:18:00 22:45:00 n mauricio Barr 10 l [facility] 2017-11-13 2017-11-13 Observatio nullFlavo [facility] [id number] Memoria 19:18:00 22:45:00 n mauricio Barr 10 l [facility] 2017-11-13 2017-11-13 Outpatient Juan Jose [facility] [id number] 13:18:00 16:45:00 Janak Mabel Fermín 2017-09-01 2017-09-02 Outpatient nullFlavo [facility] [id number] Memoria 15:15:00 05:59:59 r Internal 03 l Medicine Silerelidia Arthur 2017-09-01 2017-09-02 [place] [id number] Memoria 15:15:00 05:59:59 r Internal 03 l [facility] Momo Arthur 2017-09-01 2017-09-01 Outpatient Graham [facility] [id number] 09:15:00 23:59:59 Shira 03 2017-09-01 2017-09-01 Outpatient LUISITO JORGE [id number] Memoria 09:15:00 09:15:00 03 gayle Barr 2017-06-26 2017-06-26 Day nullFlavo [facility] [id number] Memoria 10:30:00 18:20:00 Surgery r Moom 08 l [facility] 2017-06-26 2017-06-26 Day nullFlavo [facility] [id number] Memoria 10:30:00 18:20:00 Surgery r Momo 08 l [facility] 2017-06-26 2017-06-26 Outpatient Juan Jose [facility] [id number] 05:30:00 13:20:00 Janak Kovacs 2017-05-15 2017-05-15 Day nullFlavo [facility] [id number] Memoria 11:00:00 19:20:00 Surgery r Momo araujo [facility] 2017-05-15 2017-05-15 Day nullFlavo [facility] [id number] Memoria 11:00:00 19:20:00 Surgery r Momo [facility]uire [facility] 2017-05-15 2017-05-15 [id number] 06:00:00 14:20:00 Janka Kovacs 2017-05-09 2017-05-10 Emergency nullFlavo [facility] [id number] Memoria 23:04:00 00:00:00 mauricio Barr 07 l [place] 2017-05-09 2017-05-10 Emergency nullFlavo [facility] [id number] Memoria 23:04:00 00:00:00 mauricio Barr 07 l [place] nn 2017-05-09 2017-05-09 Outpatient Eduin Tsai [facility] [id number] 18:04:00 19:00:00 Oli 2017-05-07 2017-05-07 Outpatient LUISITO JORGE [id number] Memoria 10:30:00 10:30:00 02 gayle Barr 2017-05-07 2017-05-07 Outpatient MHCAREY JORGE [id number] Memoria 10:30:00 10:30:00 02 gayle Barr 2017-04-25 2017-04-25 Outpatient LUISITO JORGE [id number] Memoria 14:45:00 14:45:00 01 gayle Barr 2017-04-25 2017-04-25 Outpatient MHIE MHIE [id number] Memoria 14:45:00 14:45:00 01 l Siler 2017-04-09 2017-04-11 Bedded nullFlavo [facility] [id number] Memoria 22:15:00 01:18:00 Outpatient r Momo 05 l [place] 2017-04-09 2017-04-11 Bedded nullFlavo [facility] [id number] Memoria 22:15:00 01:18:00 Outpatient r Momo 05 l [place] 2017-04-09 2017-04-10 Outpatient Parvizi, MHSL SL [id number] 17:15:00 20:18:00 Pancho Elizabeth 2017-03-10 2017-03-18 Inpatient nullFlavo [facility] [id number] Memoria 21:21:00 18:26:00 r Momo 04 l [place] 2017-03-10 2017-03-18 Inpatient nullFlavo [facility] [id number] Memoria 21:21:00 18:26:00 r Siler 04 l [place] 2017-03-10 2017-03-18 Outpatient Haim, MHSL SL [id number] 16:21:00 13:26:00 Mauricio Dorado 2017-03-07 2017-03-07 Outpatient MHIE MHIE [id number] Memoria 10:30:00 10:30:00 00 gayle Barr 2017-03-07 2017-03-07 Outpatient MHIE MHIE [id number] Memoria 10:30:00 10:30:00 00 gayle Barr 2013-11-22 2013-11-27 Inpatient nullFlavo [facility] [id number] Memoria 18:37:00 02:10:00 r Momo [id number] [address] 2013-11-22 2013-11-27 Inpatient nullFlavo [facility] [id number] Memoria 18:37:00 02:10:00 r Siler _[id number] [address] 2013-11-22 2013-11-26 Outpatient Gopathi, 2.16.840. [id number]. [id number] 12:37:00 20:10:00 Judy [id number] [facility] [id number] 5.0.181 25 6513-02-24 2013-11-22 Inpatient nullFlavo [facility] 37 [id number] Memoria 13:45:00 13:45:00 r [facility] 02 [facility] 2013-11-22 2013-11-22 Inpatient nullFlavo [facility] 37 [id number] Memoria 13:45:00 13:45:00 r [facility] 02 [facility] 2012-11-03 2012-11-03 Emergency nullFlavo [facility] 37 [id number] Memoria 07:28:00 09:57:00 [facility] 2012-11-03 2012-11-03 Emergency nullFlavo [facility] 37 [id number] Memoria 07:28:00 09:57:00 [facility] 2012-01-08 2012-01-08 Emergency nullFlavo [facility] 37 [id number] Memoria 09:38:00 17:44:00 [facility] 2012-01-08 2012-01-08 Emergency nullFlavo [facility] 37 [id number] Memoria 09:38:00 17:44:00 [facility] Results Test Description Test Time Test Comments Results Result Comments Source CHEMISTRY 2022-12-14 09:01:00 Test Item Value Reference Range Interpretation Comme nts Glucose Lvl (test code = Glucose Lvl) 86 70-99 [facility]ld[facility]gUUYMGZJTM0838-35-24 09:01:00 Test Item Value Reference Range Interpretation Comments BUN (test code = BUN) 24 7-22 [facility]UevlrnyAMTXUERSN8688-61-84 09:01:00 Test Item Value Reference Range Interpretation Comments Creatinine Lvl (test code = Creatinine 6.44 0.50-1.40 Lvl) [facility]ennialCqydpspGWXIMRMHN7279-32-59 09:01:00 Test Item Value Reference Range Interpretation Comments Sodium Lvl (test code = Sodium Lvl) 137 135-145 [facility] CentennialTymtercGVVDKVLEL5366-56-90 09:01:00 Test Item Value Reference Range Interpretation Comments Potassium Lvl (test code = Potassium 3.8 3.5-5.1 Lvl) [facility] CentennialYfqyrpbTWQNYKNIZ8478-51-70 09:01:00 Test Item Value Reference Range Interpretation Comments Chloride Lvl (test code = Chloride Lvl) 104 95-109 [place] [address]-03-18 09:01:00 Test Item Value Reference Range Interpretation Comments CO2 (test code = CO2) 27 24-32 [place] [address]-03-18 09:01:00 Test Item Value Reference Range Interpretation Comments AGAP (test code = AGAP) 9.8 10.0-20.0 [place] [address]-03-18 09:01:00 Test Item Value Reference Range Interpretation Comments Calcium Lvl (test code = Calcium Lvl) 8.3 8.5-10.5 [place] [address]-03-18 09:01:00 Test Item Value Reference Range Interpretation Comments B/C Ratio (test code = B/C Ratio) 4 1 6-25 [place] [address]-03-18 09:01:00 Test Item Value Reference Range Interpretation Comments Total Protein (test code = Total 5.8 6.4-8.4 Protein) [place] [address]-03-18 09:01:00 Test Item Value Reference Range Interpretation Comments Albumin Lvl (test code = Albumin Lvl) 2.9 3.5-5.0 [place] [address]-03-18 09:01:00 Test Item Value Reference Range Interpretation Comments Globulin (test code = Globulin) 2.9 2.7-4.2 [place] [address]-03-18 09:01:00 Test Item Value Reference Range Interpretation Comments A/G Ratio (test code = A/G Ratio) 1.0 1 0.7-1.6 [place] [address]-03-18 09:01:00 Test Item Value Reference Range Interpretation Comments ALT (test code = ALT) no gt See_Comment [Auto mated message] The system which nerated this result transmit cruz reference range : <=65. The reference range was not used to interpr et this result as gee l/abnormal. [place] [address]-03-18 09:01:00 Test Item Value Reference Range Interpretation Comments AST (test code = AST) 17 See_Comment [Auto mated message] The system which ge nerated this result transmit cruz reference range : <=37. The reference range was not used to interpr et this result as gee l/abnormal. [place] [address]-03-18 09:01:00 Test Item Value Reference Range Interpretation Comments Alk Phos (test code = Alk Phos) 79 39-136 [facility] CentennialOjosddyTXDVNNFJQ7739-61-03 09:01:00 Test Item Value Reference Range Interpretation Comments Bili Total (test code = Bili Total) 0.6 0.2-1.3 [place] 517283-03-18 09:01:00 Test Item Value Reference Range Interpretation Comments eGFR (test code = eGFR) 9 [facility] CenterLdpkhseIMMBUUYOOZ6076-16-38 09:01:00 Test Item Value Reference Range Interpretation Comments WBC (test code = WBC) 6.8 3.7-10.4 [facility] CenterChduyltOHJLZJTASZ6952-19-12 09:01:00 Test Item Value Reference Range Interpretation Comments RBC (test code = RBC) 2.72 4.70-6.10 [facility] CenterWfxkxaoGXPIUSTBTT1701-16-65 09:01:00 Test Item Value Reference Range Interpretation Comments Hgb (test code = Hgb) 8.5 14.0-18.0 [facility] CenterNaymuhdYACRJFFHRG4551-91-95 09:01:00 Test Item Value Reference Range Interpretation Comments Hct (test code = Hct) 25.7 42.0-54.0 [facility] CenterKwsjwhjGUUJUDOQPO2977-94-65 09:01:00 Test Item Value Reference Range Interpretation Comments MCV (test code = MCV) 94.4 80.0-94.0 [facility] CenterEcevfbbOUNZDOLARM7276-97-22 09:01:00 Test Item Value Reference Range Interpretation Comments MCH (test code = MCH) 31.1 pg 27.0-31.0 [facility] CenterWjdpybvRXZNWBGVMH8373-04-61 09:01:00 Test Item Value Reference Range Interpretation Comments MCHC (test code = MCHC) 32.9 32.0-36.0 [facility] CenterTivibecPWCBCXEHDN0069-66-57 09:01:00 Test Item Value Reference Range Interpretation Comments RDW (test code = RDW) 17.4 11.5-14.5 [place] 036773-03-18 09:01:00 Test Item Value Reference Range Interpretation Comments Platelet (test code = Platelet) 180 133-450 [facility] CenterEshzvkbETWTOLFKEG9718-70-17 09:01:00 Test Item Value Reference Range Interpretation Comments MPV (test code = MPV) 7.3 7.4-10.4 [place] [address]-03-18 09:01:00 Test Item Value Reference Range Interpretation Comments Segs (test code = Segs) 63.6 45.0-75.0 [place] [address]-03-18 09:01:00 Test Item Value Reference Range Interpretation Comments Lymphocytes (test code = Lymphocytes) 18.7 20.0-40.0 [place] [address]-03-18 09:01:00 Test Item Value Reference Range Interpretation Comments Monocytes (test code = Monocytes) 10.6 2.0-12.0 [place] [address]-03-18 09:01:00 Test Item Value Reference Range Interpretation Comments Eosinophils (test code = 6.1 See_Comment [A utomated message] The Eosinophils) system which ge nerated this result tra nsmitted reference range : <=4.0. The reference r jillian was not used to int erpret this result as normal/abnormal . [place] [address]-03-18 09:01:00 Test Item Value Reference Range Interpretation Comments Basophils (test code = 1.0 See_Comment [Aut omated message] The Basophils) system which ge nerated this result tra nsmitted reference range : <=1.0. The reference r jillian was not used to int erpret this result as normal/abnormal . [place] [address]-03-18 09:01:00 Test Item Value Reference Range Interpretation Comments Neutrophils # (test code = Neutrophils 4.3 1.5-8.1 #) [place] [address]-03-18 09:01:00 Test Item Value Reference Range Interpretation Comments Lymphocytes # (test code = Lymphocytes 1.3 1.0-5.5 #) [place] [address]-03-18 09:01:00 Test Item Value Reference Range Interpretation Comments Monocytes # (test code 0.7 See_Comment [Aut omated message] The = Monocytes #) system which generated this result tra nsmitted reference range : <=0.8. The reference r jillian was not used to int erpret this result as normal/abnormal . [place] [address]-03-18 09:01:00 Test Item Value Reference Range Interpretation Comments Eosinophils # (test code 0.4 See_Comment [A utomated message] The = Eosinophils #) system whic h generated this result tra nsmitted reference range : <=0.5. The reference r jillian was not used to int erpret this result as normal/abnormal . [facility] CenterHyygonlZHGZAWUAHL9216-76-46 09:01:00 Test Item Value Reference Range Interpretation Comments Basophils # (test code 0.1 See_Comment [Aut omated message] The = Basophils #) system which generated this result tra nsmitted reference range : <=0.2. The reference r jillian was not used to int erpret this result as normal/abnormal . [facility]WlfbvsmYWKRJRABD6508-87-03 09:01:00 Test Item Value Reference Range Interpretation Comments Glucose Lvl (test code = Glucose Lvl) 86 70-99 [facility]ennialLigzusqEHDNXCUGL2422-35-28 09:01:00 Test Item Value Reference Range Interpretation Comments BUN (test code = BUN) 24 7-22 [facility] CentennialJrzoljtHUHBAIHVZ5121-86-33 09:01:00 Test Item Value Reference Range Interpretation Comments Creatinine Lvl (test code = Creatinine 6.44 0.50-1.40 Lvl) [facility] CentennialTqwklilHOIYGRAQR9925-14-33 09:01:00 Test Item Value Reference Range Interpretation Comments Sodium Lvl (test code = Sodium Lvl) 137 135-145 [facility] CenterYcrquwrRAOKNVRZZ1067-26-12 09:01:00 Test Item Value Reference Range Interpretation Comments Potassium Lvl (test code = Potassium 3.8 3.5-5.1 Lvl) [facility] CentennialSkjtasfXBHOYJDGF5652-53-23 09:01:00 Test Item Value Reference Range Interpretation Comments Chloride Lvl (test code = Chloride Lvl) 104 95-109 [facility] CentennialLobzzozCMTHPTDTE1123-95-56 09:01:00 Test Item Value Reference Range Interpretation Comments CO2 (test code = CO2) 27 24-32 [facility] CenterPuwsxkiQIAUKPMTJ3043-79-62 09:01:00 Test Item Value Reference Range Interpretation Comments AGAP (test code = AGAP) 9.8 10.0-20.0 [facility] CenterXxfmsgyNYOQUYKVN5470-49-24 09:01:00 Test Item Value Reference Range Interpretation Comments Calcium Lvl (test code = Calcium Lvl) 8.3 8.5-10.5 [facility] CentennialIksuehxRSFSPDOBG1102-57-63 09:01:00 Test Item Value Reference Range Interpretation Comments B/C Ratio (test code = B/C Ratio) 4 1 6-25 [facility] CenterDpjhjawDAGKRNLIM1711-43-37 09:01:00 Test Item Value Reference Range Interpretation Comments Total Protein (test code = Total 5.8 6.4-8.4 Protein) [facility] CenterQvbkeueNCKGNEWNB3342-88-34 09:01:00 Test Item Value Reference Range Interpretation Comments Albumin Lvl (test code = Albumin Lvl) 2.9 3.5-5.0 [facility] CenterDmdlycmWBDRASDQJ3871-56-53 09:01:00 Test Item Value Reference Range Interpretation Comments Globulin (test code = Globulin) 2.9 2.7-4.2 [facility] CenterHjaloutMJCACRWGB6272-52-22 09:01:00 Test Item Value Reference Range Interpretation Comments A/G Ratio (test code = A/G Ratio) 1.0 1 0.7-1.6 [facility] CenterJmpkzntNVNSYHGUC8021-38-29 09:01:00 Test Item Value Reference Range Interpretation Comments ALT (test code = ALT) no gt See_Comment [Auto mated message] The system which ge nerated this result transmit cruz reference range : <=65. The reference range was not used to interpr et this result as gee l/abnormal. [facility] CenterXhdpyahIQMUJHHSJ9032-55-34 09:01:00 Test Item Value Reference Range Interpretation Comments AST (test code = AST) 17 See_Comment [Auto mated message] The system which ge nerated this result transmit cruz reference range : <=37. The reference range was not used to interpr et this result as gee l/abnormal. [facility] TlctjiaVPZUKQQEC3195-52-45 09:01:00 Test Item Value Reference Range Interpretation Comments Alk Phos (test code = Alk Phos) 79 39-136 [facility] CenterJgxfsftMSHFHWWKJ5135-90-70 09:01:00 Test Item Value Reference Range Interpretation Comments Bili Total (test code = Bili Total) 0.6 0.2-1.3 [facility] CenterLyasvoiJJGSECNIH4060-73-72 09:01:00 Test Item Value Reference Range Interpretation Comments eGFR (test code = eGFR) 9 [facility] CenterHsehrgcXSBNDSCHER7943-59-38 09:01:00 Test Item Value Reference Range Interpretation Comments WBC (test code = WBC) 6.8 3.7-10.4 [facility] CenterIsiiiezAKYAFTDGOD4331-51-90 09:01:00 Test Item Value Reference Range Interpretation Comments RBC (test code = RBC) 2.72 4.70-6.10 [facility] CenterDnkxuprCIRDIVDHHM8703-40-97 09:01:00 Test Item Value Reference Range Interpretation Comments Hgb (test code = Hgb) 8.5 14.0-18.0 [facility] CenterZidijfrINYIXZIQDJ9816-20-23 09:01:00 Test Item Value Reference Range Interpretation Comments Hct (test code = Hct) 25.7 42.0-54.0 [facility] CenterLqdymgaRBEOMOVTUI4163-88-68 09:01:00 Test Item Value Reference Range Interpretation Comments MCV (test code = MCV) 94.4 80.0-94.0 [facility] CenterArxudwxZDPLCQPXEK3759-78-93 09:01:00 Test Item Value Reference Range Interpretation Comments MCH (test code = MCH) 31.1 pg 27.0-31.0 [facility] CenterTzxrrudBSWGAVBBEZ0654-45-64 09:01:00 Test Item Value Reference Range Interpretation Comments MCHC (test code = MCHC) 32.9 32.0-36.0 [facility] CenterHdkcudcYTOEBKDCZO1783-43-96 09:01:00 Test Item Value Reference Range Interpretation Comments RDW (test code = RDW) 17.4 11.5-14.5 [facility] CenterCbznxeaTQOLLLINHL0469-13-31 09:01:00 Test Item Value Reference Range Interpretation Comments Platelet (test code = Platelet) 180 133-450 [facility] CenterBqyvhtlOALPWLNSPQ3495-09-79 09:01:00 Test Item Value Reference Range Interpretation Comments MPV (test code = MPV) 7.3 7.4-10.4 [facility] CenterUsxqtygBSMIZNUKYL1548-33-61 09:01:00 Test Item Value Reference Range Interpretation Comments Segs (test code = Segs) 63.6 45.0-75.0 [facility] CenterTvzanmyLQDMRTODZS4184-79-58 09:01:00 Test Item Value Reference Range Interpretation Comments Lymphocytes (test code = Lymphocytes) 18.7 20.0-40.0 [place] 036773-03-18 09:01:00 Test Item Value Reference Range Interpretation Comments Monocytes (test code = Monocytes) 10.6 2.0-12.0 [place] 036773-03-18 09:01:00 Test Item Value Reference Range Interpretation Comments Eosinophils (test code = 6.1 See_Comment [A utomated message] The Eosinophils) system which ge nerated this result tra nsmitted reference range : <=4.0. The reference r jillian was not used to int erpret this result as normal/abnormal . [place] 036773-03-18 09:01:00 Test Item Value Reference Range Interpretation Comments Basophils (test code = 1.0 See_Comment [Aut omated message] The Basophils) system which ge nerated this result tra nsmitted reference range : <=1.0. The reference r jillian was not used to int erpret this result as normal/abnormal . [place] [address]-03-18 09:01:00 Test Item Value Reference Range Interpretation Comments Neutrophils # (test code = Neutrophils 4.3 1.5-8.1 #) [place] [address]-03-18 09:01:00 Test Item Value Reference Range Interpretation Comments Lymphocytes # (test code = Lymphocytes 1.3 1.0-5.5 #) [place] [address]-03-18 09:01:00 Test Item Value Reference Range Interpretation Comments Monocytes # (test code 0.7 See_Comment [Aut omated message] The = Monocytes #) system which generated this result tra nsmitted reference range : <=0.8. The reference r jillian was not used to int erpret this result as normal/abnormal . [place] 036773-03-18 09:01:00 Test Item Value Reference Range Interpretation Comments Eosinophils # (test code 0.4 See_Comment [A utomated message] The = Eosinophils #) system [facility] h generated this result tra nsmitted reference range : <=0.5. The reference r jillian was not used to int erpret this result as normal/abnormal . [facility] CenterJjtwvroNNQRUNBOZL2746-63-22 09:01:00 Test Item Value Reference Range Interpretation Comments Basophils # (test code 0.1 See_Comment [Aut omated message] The = Basophils #) system which generated this result tra nsmitted reference range : <=0.2. The reference r jillian was not used to int erpret this result as normal/abnormal . [place] 517283-03-18 09:01:00 Test Item Value Reference Range Interpretation Comments Glucose Lvl (test code = Glucose Lvl) 86 70-99 [place] 517283-03-18 09:01:00 Test Item Value Reference Range Interpretation Comments BUN (test code = BUN) 24 7-22 [place] 517283-03-18 09:01:00 Test Item Value Reference Range Interpretation Comments Creatinine Lvl (test code = Creatinine 6.44 0.50-1.40 Lvl) [facility]ennialJraergtHWCCFCCPX8378-66-73 09:01:00 Test Item Value Reference Range Interpretation Comments Sodium Lvl (test code = Sodium Lvl) 137 135-145 [place] [address]-03-18 09:01:00 Test Item Value Reference Range Interpretation Comments Potassium Lvl (test code = Potassium 3.8 3.5-5.1 Lvl) [place] 517283-03-18 09:01:00 Test Item Value Reference Range Interpretation Comments Chloride Lvl (test code = Chloride Lvl) 104 95-109 [place] 517283-03-18 09:01:00 Test Item Value Reference Range Interpretation Comments CO2 (test code = CO2) 27 24-32 [place] 517283-03-18 09:01:00 Test Item Value Reference Range Interpretation Comments AGAP (test code = AGAP) 9.8 10.0-20.0 [facility] CentennialVcozddoATLPBCZQG6226-08-29 09:01:00 Test Item Value Reference Range Interpretation Comments Calcium Lvl (test code = Calcium Lvl) 8.3 8.5-10.5 [place] 517283-03-18 09:01:00 Test Item Value Reference Range Interpretation Comments B/C Ratio (test code = B/C Ratio) 4 1 6-25 [place] 517283-03-18 09:01:00 Test Item Value Reference Range Interpretation Comments Total Protein (test code = Total 5.8 6.4-8.4 Protein) [place] 517283-03-18 09:01:00 Test Item Value Reference Range Interpretation Comments Albumin Lvl (test code = Albumin Lvl) 2.9 3.5-5.0 [place] 517283-03-18 09:01:00 Test Item Value Reference Range Interpretation Comments Globulin (test code = Globulin) 2.9 2.7-4.2 [place] 517283-03-18 09:01:00 Test Item Value Reference Range Interpretation Comments A/G Ratio (test code = A/G Ratio) 1.0 1 0.7-1.6 [facility] CenterBualssmZNRJKDJAI2117-29-00 09:01:00 Test Item Value Reference Range Interpretation Comments ALT (test code = ALT) no gt See_Comment [Auto mated message] The system which ge nerated this result transmit cruz reference range : <=65. The reference range was not used to interpr et this result as gee l/abnormal. [facility] CenterMaguljcEGLIGOJSP7749-23-86 09:01:00 Test Item Value Reference Range Interpretation Comments AST (test code = AST) 17 See_Comment [Auto mated message] The system which ge nerated this result transmit cruz reference range : <=37. The reference range was not used to interpr et this result as gee l/abnormal. [facility] HvrimvdNFLJVNBMQ0626-96-07 09:01:00 Test Item Value Reference Range Interpretation Comments Alk Phos (test code = Alk Phos) 79 39-136 [facility] CenterCdggxsbQIFYGONUF9721-77-31 09:01:00 Test Item Value Reference Range Interpretation Comments Bili Total (test code = Bili Total) 0.6 0.2-1.3 [facility] CenterUuguphcWGWMQUPWM4765-32-45 09:01:00 Test Item Value Reference Range Interpretation Comments eGFR (test code = eGFR) 9 [facility] CenterIgqtfxnHSAHTHWTQO3900-98-41 09:01:00 Test Item Value Reference Range Interpretation Comments WBC (test code = WBC) 6.8 3.7-10.4 [facility] CenterOylxbdzRAMJMPUUOQ9684-75-68 09:01:00 Test Item Value Reference Range Interpretation Comments RBC (test code = RBC) 2.72 4.70-6.10 [facility] ZkxnoaiLLUTJMXJCP2213-85-75 09:01:00 Test Item Value Reference Range Interpretation Comments Hgb (test code = Hgb) 8.5 14.0-18.0 [facility] CenterRukvmwhCRCSBSUEVL4246-19-88 09:01:00 Test Item Value Reference Range Interpretation Comments Hct (test code = Hct) 25.7 42.0-54.0 [facility] CenterWbdiqynPBFDOOUNMB9303-43-08 09:01:00 Test Item Value Reference Range Interpretation Comments MCV (test code = MCV) 94.4 80.0-94.0 [place] 036773-03-18 09:01:00 Test Item Value Reference Range Interpretation Comments MCH (test code = MCH) 31.1 pg 27.0-31.0 [place] 036773-03-18 09:01:00 Test Item Value Reference Range Interpretation Comments MCHC (test code = MCHC) 32.9 32.0-36.0 [place] 036773-03-18 09:01:00 Test Item Value Reference Range Interpretation Comments RDW (test code = RDW) 17.4 11.5-14.5 [place] [address]-03-18 09:01:00 Test Item Value Reference Range Interpretation Comments Platelet (test code = Platelet) 180 133-450 [place] 036773-03-18 09:01:00 Test Item Value Reference Range Interpretation Comments MPV (test code = MPV) 7.3 7.4-10.4 [place] 036773-03-18 09:01:00 Test Item Value Reference Range Interpretation Comments Segs (test code = Segs) 63.6 45.0-75.0 [place] [address]-03-18 09:01:00 Test Item Value Reference Range Interpretation Comments Lymphocytes (test code = Lymphocytes) 18.7 20.0-40.0 [place] 036773-03-18 09:01:00 Test Item Value Reference Range Interpretation Comments Monocytes (test code = Monocytes) 10.6 2.0-12.0 [place] 036773-03-18 09:01:00 Test Item Value Reference Range Interpretation Comments Eosinophils (test code = 6.1 See_Comment [A utomated message] The Eosinophils) system which nerated this result tra nsmitted reference range : <=4.0. The reference r jillian was not used to int erpret this result as normal/abnormal . [place] 036773-03-18 09:01:00 Test Item Value Reference Range Interpretation Comments Basophils (test code = 1.0 See_Comment [Aut omated message] The Basophils) system which ge nerated this result tra nsmitted reference range : <=1.0. The reference r jillian was not used to int erpret this result as normal/abnormal . [place] 036773-03-18 09:01:00 Test Item Value Reference Range Interpretation Comments Neutrophils # (test code = Neutrophils 4.3 1.5-8.1 #) [facility] CenterAqkacxfPZDULBGYDH0678-11-27 09:01:00 Test Item Value Reference Range Interpretation Comments Lymphocytes # (test code = Lymphocytes 1.3 1.0-5.5 #) [facility] CenterFqbqusxPIOWWOZGXJ8334-60-61 09:01:00 Test Item Value Reference Range Interpretation Comments Monocytes # (test code 0.7 See_Comment [Aut omated message] The = Monocytes #) system which generated this result tra nsmitted reference range : <=0.8. The reference r jillian was not used to int erpret this result as normal/abnormal . [place] 036773-03-18 09:01:00 Test Item Value Reference Range Interpretation Comments Eosinophils # (test code 0.4 See_Comment [A utomated message] The = Eosinophils #) system whic h generated this result tra nsmitted reference range : <=0.5. The reference r jillian was not used to int erpret this result as normal/abnormal . [facility] CenterJkotwmtSYPVMUWNPY3766-22-17 09:01:00 Test Item Value Reference Range Interpretation Comments Basophils # (test code 0.1 See_Comment [Aut omated message] The = Basophils #) system which generated this result tra nsmitted reference range : <=0.2. The reference r jillian was not used to int erpret this result as normal/abnormal . [facility]ennialDkamlgzFQUEFPDAF4085-18-03 09:01:00 Test Item Value Reference Range Interpretation Comments Glucose Lvl (test code = Glucose Lvl) 86 70-99 [place] 517283-03-18 09:01:00 Test Item Value Reference Range Interpretation Comments BUN (test code = BUN) 24 7-22 [place] [address]-03-18 09:01:00 Test Item Value Reference Range Interpretation Comments Creatinine Lvl (test code = Creatinine 6.44 0.50-1.40 Lvl) [place] 517283-03-18 09:01:00 Test Item Value Reference Range Interpretation Comments Sodium Lvl (test code = Sodium Lvl) 137 135-145 [place] 517283-03-18 09:01:00 Test Item Value Reference Range Interpretation Comments Potassium Lvl (test code = Potassium 3.8 3.5-5.1 Lvl) [facility]ennialGijbdmaQBUBIWNDS6291-63-37 09:01:00 Test Item Value Reference Range Interpretation Comments Chloride Lvl (test code = Chloride Lvl) 104 95-109 [place] 517283-03-18 09:01:00 Test Item Value Reference Range Interpretation Comments CO2 (test code = CO2) 27 24-32 [place] [address]-03-18 09:01:00 Test Item Value Reference Range Interpretation Comments AGAP (test code = AGAP) 9.8 10.0-20.0 [place] [address]-03-18 09:01:00 Test Item Value Reference Range Interpretation Comments Calcium Lvl (test code = Calcium Lvl) 8.3 8.5-10.5 [place] [address]-03-18 09:01:00 Test Item Value Reference Range Interpretation Comments B/C Ratio (test code = B/C Ratio) 4 1 6-25 [place] [address]-03-18 09:01:00 Test Item Value Reference Range Interpretation Comments Total Protein (test code = Total 5.8 6.4-8.4 Protein) [facility] CentennialSymylquTHCVQWXIB1145-24-65 09:01:00 Test Item Value Reference Range Interpretation Comments Albumin Lvl (test code = Albumin Lvl) 2.9 3.5-5.0 [place] [address]-03-18 09:01:00 Test Item Value Reference Range Interpretation Comments Globulin (test code = Globulin) 2.9 2.7-4.2 [place] [address]-03-18 09:01:00 Test Item Value Reference Range Interpretation Comments A/G Ratio (test code = A/G Ratio) 1.0 1 0.7-1.6 [place] [address]-03-18 09:01:00 Test Item Value Reference Range Interpretation Comments ALT (test code = ALT) no gt See_Comment [Auto mated message] The system which ge nerated this result transmit cruz reference range : <=65. The reference range was not used to interpr et this result as gee l/abnormal. [place] [address]-03-18 09:01:00 Test Item Value Reference Range Interpretation Comments AST (test code = AST) 17 See_Comment [Auto mated message] The system which ge nerated this result transmit cruz reference range : <=37. The reference range was not used to interpr et this result as gee l/abnormal. [facility] CentennialZocmxjjDIYAWLOXH4543-33-32 09:01:00 Test Item Value Reference Range Interpretation Comments Alk Phos (test code = Alk Phos) 79 39-136 [facility] CentennialIrftcoyFLNQQTBIT2167-73-26 09:01:00 Test Item Value Reference Range Interpretation Comments Bili Total (test code = Bili Total) 0.6 0.2-1.3 [place] 517283-03-18 09:01:00 Test Item Value Reference Range Interpretation Comments eGFR (test code = eGFR) 9 [facility] CenterPkdjyezJIZEEEMNYM8534-00-63 09:01:00 Test Item Value Reference Range Interpretation Comments WBC (test code = WBC) 6.8 3.7-10.4 [facility] CenterQvjdmhsPGVPDKQXKO6405-72-27 09:01:00 Test Item Value Reference Range Interpretation Comments RBC (test code = RBC) 2.72 4.70-6.10 [facility] CenterGebmsfjNKNTGNPGYO3351-93-48 09:01:00 Test Item Value Reference Range Interpretation Comments Hgb (test code = Hgb) 8.5 14.0-18.0 [facility] CenterRsnbrmxZLODIYXXNH1845-58-23 09:01:00 Test Item Value Reference Range Interpretation Comments Hct (test code = Hct) 25.7 42.0-54.0 [facility] CenterNxmpepsZWQRMXIVLC5399-82-35 09:01:00 Test Item Value Reference Range Interpretation Comments MCV (test code = MCV) 94.4 80.0-94.0 [place] 036773-03-18 09:01:00 Test Item Value Reference Range Interpretation Comments MCH (test code = MCH) 31.1 pg 27.0-31.0 [facility] CenterTbtdlbeIBOBMJCGZX6133-97-24 09:01:00 Test Item Value Reference Range Interpretation Comments MCHC (test code = MCHC) 32.9 32.0-36.0 [facility] CenterKjkperoZAIRSWUORE8037-08-51 09:01:00 Test Item Value Reference Range Interpretation Comments RDW (test code = RDW) 17.4 11.5-14.5 [facility] CenterZonvgtiTRDIOPOXKD1403-79-68 09:01:00 Test Item Value Reference Range Interpretation Comments Platelet (test code = Platelet) 180 133-450 [place] 036773-03-18 09:01:00 Test Item Value Reference Range Interpretation Comments MPV (test code = MPV) 7.3 7.4-10.4 [place] 036773-03-18 09:01:00 Test Item Value Reference Range Interpretation Comments Segs (test code = Segs) 63.6 45.0-75.0 [place] 036773-03-18 09:01:00 Test Item Value Reference Range Interpretation Comments Lymphocytes (test code = Lymphocytes) 18.7 20.0-40.0 [place] [address]-03-18 09:01:00 Test Item Value Reference Range Interpretation Comments Monocytes (test code = Monocytes) 10.6 2.0-12.0 [place] 036773-03-18 09:01:00 Test Item Value Reference Range Interpretation Comments Eosinophils (test code = 6.1 See_Comment [A utomated message] The Eosinophils) system which ge nerated this result tra nsmitted reference range : <=4.0. The reference r jillian was not used to int erpret this result as normal/abnormal . [facility] CenterGaopyogRVEQNWRSRS5806-52-54 09:01:00 Test Item Value Reference Range Interpretation Comments Basophils (test code = 1.0 See_Comment [Aut omated message] The Basophils) system which ge nerated this result tra nsmitted reference range : <=1.0. The reference r jillian was not used to int erpret this result as normal/abnormal . [facility] CenterUvciuzeKUQFZMWYOG7255-13-39 09:01:00 Test Item Value Reference Range Interpretation Comments Neutrophils # (test code = Neutrophils 4.3 1.5-8.1 #) [place] 036773-03-18 09:01:00 Test Item Value Reference Range Interpretation Comments Lymphocytes # (test code = Lymphocytes 1.3 1.0-5.5 #) [place] [address]-03-18 09:01:00 Test Item Value Reference Range Interpretation Comments Monocytes # (test code 0.7 See_Comment [Aut omated message] The = Monocytes #) system which generated this result tra nsmitted reference range : <=0.8. The reference r jillian was not used to int erpret this result as normal/abnormal . [address]03-18 09:01:00 Test Item Value Reference Range Interpretation Comments Eosinophils # (test code 0.4 See_Comment [A utomated message] The = Eosinophils #) system whic h generated this result tra nsmitted reference range : <=0.5. The reference r jillian was not used to int erpret this result as normal/abnormal . [address]03-18 09:01:00 Test Item Value Reference Range Interpretation Comments Basophils # (test code 0.1 See_Comment [Aut omated message] The = Basophils #) system which generated this result tra nsmitted reference range : <=0.2. The reference r jillian was not used to int erpret this result as normal/abnormal . [place] [address]-03-18 01:43:00 Test Item Value Reference Range Interpretation Comments Glucose POC (test code = Glucose POC) 111 70 [place] [address]-03-18 01:43:00 Test Item Value Reference Range Interpretation Comments Gluc POC Comment 1 (test code Notified RN/MD = Gluc POC Comment 1) [address]03-18 01:43:00 Test Item Value Reference Range Interpretation Comments Glucose POC (test code = Glucose POC) 111 70 [place] [address]-03-18 01:43:00 Test Item Value Reference Range Interpretation Comments Gluc POC Comment 1 (test code Notified RN/MD = Gluc POC Comment 1) [address]03-18 01:43:00 Test Item Value Reference Range Interpretation Comments Glucose POC (test code = Glucose POC) 111 70- [place] [address]-03-18 01:43:00 Test Item Value Reference Range Interpretation Comments Gluc POC Comment 1 (test code Notified RN/MD = Gluc POC Comment 1) [address]03-18 01:43:00 Test Item Value Reference Range Interpretation Comments Glucose POC (test code = Glucose POC) 111 70- [place] [address]-03-18 01:43:00 Test Item Value Reference Range Interpretation Comments Gluc POC Comment 1 (test code Notified RN/MD = Gluc POC Comment 1) [address]03-17 13:41:00 Test Item Value Reference Range Interpretation Comments RBC Morph (test code = Normal (12/13/22 8:41 RBC Morph) AM) [facility] CenterNxgbtopBRIRWVSRDC7232-98-73 13:41:00 Test Item Value Reference Range Interpretation Comments Plt Morph (test code = Normal (12/13/22 8:41 Plt Morph) AM) [facility] CenterUxrcsvxYZXKNTUELW0511-97-35 13:41:00 Test Item Value Reference Range Interpretation Comments RBC Morph (test code = Normal (12/13/22 8:41 RBC Morph) AM) [facility] CenterCtfyxpaYBPXYZJGKW0673-22-86 13:41:00 Test Item Value Reference Range Interpretation Comments Plt Morph (test code = Normal (12/13/22 8:41 Plt Morph) AM) [facility] CenterWczxefkJSZFTOVHCQ4410-66-20 13:41:00 Test Item Value Reference Range Interpretation Comments RBC Morph (test code = Normal (12/13/22 8:41 RBC Morph) AM) [facility] CenterYhrvtxgPUHTPFFCYC9305-01-10 13:41:00 Test Item Value Reference Range Interpretation Comments Plt Morph (test code = Normal (12/13/22 8:41 Plt Morph) AM) [id number] 13:41:00 Test Item Value Reference Range Interpretation Comments RBC Morph (test code = Normal (12/13/22 8:41 RBC Morph) AM) [facility] CenterZgaqjgdHLRJBCHKOE3359-80-42 13:41:00 Test Item Value Reference Range Interpretation Comments Plt Morph (test code = Normal (12/13/22 8:41 Plt Morph) AM) [facility] [id number] 02:46:00 Test Item Value Reference Range Interpretation Comments RBC product (test code Product available = RBC product) 2(12/12/22 9:46 PM) [facility] [id number] 02:46:00 Test Item Value Reference Range Interpretation Comments RBC product (test code Product available = RBC product) 2(12/12/22 9:46 PM) [facility] [id number] 02:46:00 Test Item Value Reference Range Interpretation Comments RBC product (test code Product available = RBC product) 2(12/12/22 9:46 PM) [facility] [id number] 02:46:00 Test Item Value Reference Range Interpretation Comments RBC product (test code Product available = RBC product) 2(12/12/22 9:46 PM) [facility] [id number] 17:51:00 Test Item Value Reference Range Interpretation Comments ABO/Rh (test code = ABO/Rh) O POS [facility] [id number] 17:51:00 Test Item Value Reference Range Interpretation Comments Antibody Scrn (test Negative (12/12/22 code = Antibody Scrn) 12:51 PM) [facility] [id number] 17:51:00 Test Item Value Reference Range Interpretation Comments ABO/Rh (test code = ABO/Rh) O POS [facility] [id number] 17:51:00 Test Item Value Reference Range Interpretation Comments Antibody Scrn (test Negative (12/12/22 code = Antibody Scrn) 12:51 PM) [facility] [id number] 17:51:00 Test Item Value Reference Range Interpretation Comments ABO/Rh (test code = ABO/Rh) O POS [facility] [id number] 17:51:00 Test Item Value Reference Range Interpretation Comments Antibody Scrn (test Negative (12/12/22 code = Antibody Scrn) 12:51 PM) [facility] [id number] 17:51:00 Test Item Value Reference Range Interpretation Comments ABO/Rh (test code = ABO/Rh) O [facility] [id number] 17:51:00 Test Item Value Reference Range Interpretation Comments Antibody Scrn (test Negative (12/12/22 code = Antibody Scrn) 12:51 PM) [facility] CenterPseuktiWPNHSIKPFD9581-42-33 09:13:00 Test Item Value Reference Range Interpretation Comments Macrocyte (test code = 1+ *ABN*(12/12/22 Macrocyte) 4:13 AM) [facility] CenterQdefuheSBEOUCTGHS6187-08-77 09:13:00 Test Item Value Reference Range Interpretation Comments Macrocyte (test code = 1+ *ABN*(12/12/22 Macrocyte) 4:13 AM) [facility] CenterXxhchqdHKFMFXUBVC6452-97-37 09:13:00 Test Item Value Reference Range Interpretation Comments Macrocyte (test code = 1+ *ABN*(12/12/22 Macrocyte) 4:13 AM) [facility] CenterNhzxembAXKDSGEQGV7298-01-17 09:13:00 Test Item Value Reference Range Interpretation Comments Macrocyte (test code = 1+ *ABN*(12/12/22 Macrocyte) 4:13 AM) [place] 553953-03-13 09:20:00 Test Item Value Reference Range Interpretation Comments Glucose Lvl (test code = Glucose Lvl) 84 70-99 [place] 553953-03-13 09:20:00 Test Item Value Reference Range Interpretation Comments BUN (test code = BUN) 71 7-22 [facility]2023-03-13 09:20:00 Test Item Value Reference Range Interpretation Comments Creatinine Lvl (test code = Creatinine 10.70 0.50-1.40 Lvl) [place] 553953-03-13 09:20:00 Test Item Value Reference Range Interpretation Comments Sodium Lvl (test code = Sodium Lvl) 133 135-145 [facility]2023-03-13 09:20:00 Test Item Value Reference Range Interpretation Comments Potassium Lvl (test code = Potassium 5.4 3.5-5.1 Lvl) [facility]2023-03-13 09:20:00 Test Item Value Reference Range Interpretation Comments Chloride Lvl (test code = Chloride Lvl) 102 95-109 [facility]2023-03-13 09:20:00 Test Item Value Reference Range Interpretation Comments CO2 (test code = CO2) 23 24-32 [facility]2023-03-13 09:20:00 Test Item Value Reference Range Interpretation Comments Calcium Lvl (test code = Calcium Lvl) 8.2 8.5-10.5 [facility]2023-03-13 09:20:00 Test Item Value Reference Range Interpretation Comments AGAP (test code = AGAP) 13.4 10.0-20.0 [place] 553953-03-13 09:20:00 Test Item Value Reference Range Interpretation Comments eGFR (test code = eGFR) 5 [place] 553953-03-13 09:20:00 Test Item Value Reference Range Interpretation Comments Glucose Lvl (test code = Glucose Lvl) 84 70-99 [place] 553953-03-13 09:20:00 Test Item Value Reference Range Interpretation Comments BUN (test code = BUN) 71 7- [place] 553953-03-13 09:20:00 Test Item Value Reference Range Interpretation Comments Creatinine Lvl (test code = Creatinine 10.70 0.50-1.40 Lvl) [place] 553953-03-13 09:20:00 Test Item Value Reference Range Interpretation Comments Sodium Lvl (test code = Sodium Lvl) 133 135-145 [place] 553953-03-13 09:20:00 Test Item Value Reference Range Interpretation Comments Potassium Lvl (test code = Potassium 5.4 3.5-5.1 Lvl) [place] 553953-03-13 09:20:00 Test Item Value Reference Range Interpretation Comments Chloride Lvl (test code = Chloride Lvl) 102 95-109 [place] 553953-03-13 09:20:00 Test Item Value Reference Range Interpretation Comments CO2 (test code = CO2) - [place] 553953-03-13 09:20:00 Test Item Value Reference Range Interpretation Comments Glucose Lvl (test code = Glucose Lvl) 84 70-99 [place] 553953-03-13 09:20:00 Test Item Value Reference Range Interpretation Comments BUN (test code = BUN) 71 7- [facility]2023-03-13 09:20:00 Test Item Value Reference Range Interpretation Comments Creatinine Lvl (test code = Creatinine 10.70 0.50-1.40 Lvl) [facility]2023-03-13 09:20:00 Test Item Value Reference Range Interpretation Comments Sodium Lvl (test code = Sodium Lvl) 133 135-145 [place] 553953-03-13 09:20:00 Test Item Value Reference Range Interpretation Comments Potassium Lvl (test code = Potassium 5.4 3.5-5.1 Lvl) [place] 553953-03-13 09:20:00 Test Item Value Reference Range Interpretation Comments Chloride Lvl (test code = Chloride Lvl) 102 95-109 [place] 553953-03-13 09:20:00 Test Item Value Reference Range Interpretation Comments CO2 (test code = CO2) 24-32 [place] [address]-03-13 09:20:00 Test Item Value Reference Range Interpretation Comments Calcium Lvl (test code = Calcium Lvl) 8.2 8.5-10.5 [place] 553953-03-13 09:20:00 Test Item Value Reference Range Interpretation Comments AGAP (test code = AGAP) 13.4 10.0-20.0 [facility]2023-03-13 09:20:00 Test Item Value Reference Range Interpretation Comments Calcium Lvl (test code = Calcium Lvl) 8.2 8.5-10.5 [place] 553953-03-13 09:20:00 Test Item Value Reference Range Interpretation Comments eGFR (test code = eGFR) 5 [facility]2023-03-13 09:20:00 Test Item Value Reference Range Interpretation Comments AGAP (test code = AGAP) 13.4 10.0-20.0 [facility]2023-03-13 09:20:00 Test Item Value Reference Range Interpretation Comments eGFR (test code = eGFR) 5 [facility]2023-03-13 09:20:00 Test Item Value Reference Range Interpretation Comments Glucose Lvl (test code = Glucose Lvl) 84 70-99 [facility]2023-03-13 09:20:00 Test Item Value Reference Range Interpretation Comments BUN (test code = BUN) 71 7-22 [facility]2023-03-13 09:20:00 Test Item Value Reference Range Interpretation Comments Creatinine Lvl (test code = Creatinine 10.70 0.50-1.40 Lvl) [facility]2023-03-13 09:20:00 Test Item Value Reference Range Interpretation Comments Sodium Lvl (test code = Sodium Lvl) 133 135-145 [facility]2023-03-13 09:20:00 Test Item Value Reference Range Interpretation Comments Potassium Lvl (test code = Potassium 5.4 3.5-5.1 Lvl) [place] 553953-03-13 09:20:00 Test Item Value Reference Range Interpretation Comments Chloride Lvl (test code = Chloride Lvl) 102 95-109 [place] 553953-03-13 09:20:00 Test Item Value Reference Range Interpretation Comments CO2 (test code = CO2) 23 24-32 [place] 553953-03-13 09:20:00 Test Item Value Reference Range Interpretation Comments Calcium Lvl (test code = Calcium Lvl) 8.2 8.5-10.5 [facility] [employer] [id number] 09:20:00 Test Item Value Reference Range Interpretation Comments AGAP (test code = AGAP) 13.4 10.0-20.0 [facility] [id number] 09:20:00 Test Item Value Reference Range Interpretation Comments eGFR (test code = eGFR) 5 [facility] [id number] 09:29:00 Test Item Value Reference Range Interpretation Comments Antibody Scrn (test Negative (12/08/22 4:29 code = Antibody Scrn) AM) [facility] [employer] [facility] [id number] 09:29:00 Test Item Value Reference Range Interpretation Comments ABO/Rh (test code = ABO/Rh) O POS [facility] [id number] 09:29:00 Test Item Value Reference Range Interpretation Comments Glucose Lvl (test code = Glucose Lvl) 101 70-99 [facility] [id number] 09:29:00 Test Item Value Reference Range Interpretation Comments BUN (test code = BUN) 62 7-22 [facility] [id number] 09:29:00 Test Item Value Reference Range Interpretation Comments Creatinine Lvl (test code = Creatinine 9.67 0.50-1.40 Lvl) [facility] [id number] 09:29:00 Test Item Value Reference Range Interpretation Comments Sodium Lvl (test code = Sodium Lvl) 133 135-145 [facility] [id number] 09:29:00 Test Item Value Reference Range Interpretation Comments Potassium Lvl (test code = Potassium 5.3 3.5-5.1 Lvl) [facility] [id number] 09:29:00 Test Item Value Reference Range Interpretation Comments Chloride Lvl (test code = Chloride Lvl) 103 95-109 [facility] [id number] 09:29:00 Test Item Value Reference Range Interpretation Comments CO2 (test code = CO2) 24 24-32 [facility] [id number] 09:29:00 Test Item Value Reference Range Interpretation Comments AGAP (test code = AGAP) 11.3 10.0-20.0 [facility]2023-03-12 09:29:00 Test Item Value Reference Range Interpretation Comments Calcium Lvl (test code = Calcium Lvl) 8.2 8.5-10.5 [facility]2023-03-12 09:29:00 Test Item Value Reference Range Interpretation Comments eGFR (test code = eGFR) 6 [facility] CenterRuvaxuvTNWLKHSVPP7731-05-66 09:29:00 Test Item Value Reference Range Interpretation Comments WBC (test code = WBC) 9.0 3.7-10.4 [place] 036773-03-12 09:29:00 Test Item Value Reference Range Interpretation Comments RBC (test code = RBC) 3.27 4.70-6.10 [facility] CenterWtzmezlNCVLLXNIOH6065-90-74 09:29:00 Test Item Value Reference Range Interpretation Comments Hgb (test code = Hgb) 11.1 14.0-18.0 [place] 036773-03-12 09:29:00 Test Item Value Reference Range Interpretation Comments Hct (test code = Hct) 33.7 42.0-54.0 [place] 036773-03-12 09:29:00 Test Item Value Reference Range Interpretation Comments MCV (test code = MCV) 102.8 80.0-94.0 [place] 036773-03-12 09:29:00 Test Item Value Reference Range Interpretation Comments MCH (test code = MCH) 33.8 pg 27.0-31.0 [place] 036773-03-12 09:29:00 Test Item Value Reference Range Interpretation Comments MCHC (test code = MCHC) 32.9 32.0-36.0 [place] [address]-03-12 09:29:00 Test Item Value Reference Range Interpretation Comments RDW (test code = RDW) 15.0 11.5-14.5 [place] [address]-03-12 09:29:00 Test Item Value Reference Range Interpretation Comments Platelet (test code = Platelet) 188 133-450 [facility] CenterIsygtsvNGNCHVTUED3180-84-41 09:29:00 Test Item Value Reference Range Interpretation Comments MPV (test code = MPV) 8.6 7.4-10.4 [place] 036773-03-12 09:29:00 Test Item Value Reference Range Interpretation Comments PT (test code = PT) 14.5 s 12.0-14.7 [place] [address]-03-12 09:29:00 Test Item Value Reference Range Interpretation Comments INR (test code = INR) 1.13 1 0.85-1.17 [place] [address]-03-12 09:29:00 Test Item Value Reference Range Interpretation Comments PTT (test code = PTT) 32.1 s 22.9-35.8 [place] [address]-03-12 09:29:00 Test Item Value Reference Range Interpretation Comments Segs (test code = Segs) 70.6 45.0-75.0 [place] [address]:29:00 Test Item Value Reference Range Interpretation Comments Lymphocytes (test code = Lymphocytes) 18.1 20.0-40.0 [place] [address]:29:00 Test Item Value Reference Range Interpretation Comments Monocytes (test code = Monocytes) 10.7 2.0-12.0 [place] [address]-03-12 09:29:00 Test Item Value Reference Range Interpretation Comments Eosinophils (test code = 0.2 See_Comment [A utomated message] The Eosinophils) system which ge nerated this result tra nsmitted reference range : <=4.0. The reference r jillian was not used to int erpret this result as normal/abnormal . [place] 036773-03-12 09:29:00 Test Item Value Reference Range Interpretation Comments Basophils (test code = 0.4 See_Comment [Aut omated message] The Basophils) system which ge nerated this result tra nsmitted reference range : <=1.0. The reference r jillian was not used to int erpret this result as normal/abnormal . [place] [address]-03-12 09:29:00 Test Item Value Reference Range Interpretation Comments Neutrophils # (test code = Neutrophils 6.4 1.5-8.1 #) [place] [address]-03-12 09:29:00 Test Item Value Reference Range Interpretation Comments Lymphocytes # (test code = Lymphocytes 1.6 1.0-5.5 #) [place] [address]-03-12 09:29:00 Test Item Value Reference Range Interpretation Comments Monocytes # (test code 1.0 See_Comment [Aut omated message] The = Monocytes #) system which generated this result tra nsmitted reference range : <=0.8. The reference r jillian was not used to int erpret this result as normal/abnormal . [facility] BzfparwQJASUHWWFM4249-38-18 09:29:00 Test Item Value Reference Range Interpretation Comments Macrocyte (test code = 1+ *ABN*(12/08/22 Macrocyte) 4:29 AM) [facility] LjqtcuiVZJVMIHPQZ6677-24-32 09:29:00 Test Item Value Reference Range Interpretation Comments PT (test code = PT) 14.5 s 12.0-14.7 [facility] UmlpcjqBATFOAHIDT8822-54-30 09:29:00 Test Item Value Reference Range Interpretation Comments INR (test code = INR) 1.13 1 0.85-1.17 [facility] RzwixcxSLYGZVIRJF5375-35-53 09:29:00 Test Item Value Reference Range Interpretation Comments PTT (test code = PTT) 32.1 s 22.9-35.8 [facility] [employer] [id number] 09:29:00 Test Item Value Reference Range Interpretation Comments Antibody Scrn (test Negative (12/08/22 4:29 code = Antibody Scrn) AM) [place] [id number] 09:29:00 Test Item Value Reference Range Interpretation Comments ABO/Rh (test code = ABO/Rh) O POS [facility] [employer]2023-03-12 09:29:00 Test Item Value Reference Range Interpretation Comments Glucose Lvl (test code = Glucose Lvl) 101 70-99 [facility] [employer]2023-03-12 09:29:00 Test Item Value Reference Range Interpretation Comments BUN (test code = BUN) 62 7-22 [employer]2023-03-12 09:29:00 Test Item Value Reference Range Interpretation Comments Creatinine Lvl (test code = Creatinine 9.67 0.50-1.40 Lvl) [facility] [employer]2023-03-12 09:29:00 Test Item Value Reference Range Interpretation Comments Sodium Lvl (test code = Sodium Lvl) 133 135-145 [facility] [employer]2023-03-12 09:29:00 Test Item Value Reference Range Interpretation Comments Potassium Lvl (test code = Potassium 5.3 3.5-5.1 Lvl) [place] 553953-03-12 09:29:00 Test Item Value Reference Range Interpretation Comments Chloride Lvl (test code = Chloride Lvl) 103 95-109 [place] 553953-03-12 09:29:00 Test Item Value Reference Range Interpretation Comments CO2 (test code = CO2) 24 24-32 [place] [address]-03-12 09:29:00 Test Item Value Reference Range Interpretation Comments AGAP (test code = AGAP) 11.3 10.0-20.0 [place] [address]-03-12 09:29:00 Test Item Value Reference Range Interpretation Comments Calcium Lvl (test code = Calcium Lvl) 8.2 8.5-10.5 [place] 553953-03-12 09:29:00 Test Item Value Reference Range Interpretation Comments eGFR (test code = eGFR) 6 [place] 036773-03-12 09:29:00 Test Item Value Reference Range Interpretation Comments WBC (test code = WBC) 9.0 3.7-10.4 [place] [address]-03-12 09:29:00 Test Item Value Reference Range Interpretation Comments RBC (test code = RBC) 3.27 4.70-6.10 [place] [address]-03-12 09:29:00 Test Item Value Reference Range Interpretation Comments Hgb (test code = Hgb) 11.1 14.0-18.0 [place] [address]-03-12 09:29:00 Test Item Value Reference Range Interpretation Comments Hct (test code = Hct) 33.7 42.0-54.0 [place] [address]-03-12 09:29:00 Test Item Value Reference Range Interpretation Comments MCV (test code = MCV) 102.8 80.0-94.0 [place] [address]-03-12 09:29:00 Test Item Value Reference Range Interpretation Comments MCH (test code = MCH) 33.8 pg 27.0-31.0 [place] [address]-03-12 09:29:00 Test Item Value Reference Range Interpretation Comments MCHC (test code = MCHC) 32.9 32.0-36.0 [place] [address]-03-12 09:29:00 Test Item Value Reference Range Interpretation Comments RDW (test code = RDW) 15.0 11.5-14.5 [place] [address]-03-12 09:29:00 Test Item Value Reference Range Interpretation Comments Platelet (test code = Platelet) 188 133-450 [place] [address]-03-12 09:29:00 Test Item Value Reference Range Interpretation Comments MPV (test code = MPV) 8.6 7.4-10.4 [place] [address]-03-12 09:29:00 Test Item Value Reference Range Interpretation Comments PT (test code = PT) 14.5 s 12.0-14.[address]03-12 09:29:00 Test Item Value Reference Range Interpretation Comments INR (test code = INR) 1.13 1 0.85-1.[address]03-12 09:29:00 Test Item Value Reference Range Interpretation Comments PTT (test code = PTT) 32.1 s 22.9-35.8 [place] [address]-03-12 09:29:00 Test Item Value Reference Range Interpretation Comments Segs (test code = Segs) 70.6 45.0-75.0 [address]03-12 09:29:00 Test Item Value Reference Range Interpretation Comments Lymphocytes (test code = Lymphocytes) 18.1 20.0-40.0 [place] [address]-03-12 09:29:00 Test Item Value Reference Range Interpretation Comments Monocytes (test code = Monocytes) 10.7 2.0-12.0 [place] [address]-03-12 09:29:00 Test Item Value Reference Range Interpretation Comments Eosinophils (test code = 0.2 See_Comment [A utomated message] The Eosinophils) system which ge nerated this result tra nsmitted reference range : <=4.0. The reference r jillian was not used to int erpret this result as normal/abnormal . [place] [address]-03-12 09:29:00 Test Item Value Reference Range Interpretation Comments Basophils (test code = 0.4 See_Comment [Aut omated message] The Basophils) system which ge nerated this result tra nsmitted reference range : <=1.0. The reference r jillian was not used to int erpret this result as normal/abnormal . [facility]ogzpccDTNWURULYV5650-29-32 09:29:00 Test Item Value Reference Range Interpretation Comments Neutrophils # (test code = Neutrophils 6.4 1.5-8.1 #) [facility]ik[facility]byaCQELBPKHHZ4420-69-54 09:29:00 Test Item Value Reference Range Interpretation Comments Lymphocytes # (test code = Lymphocytes 1.6 1.0-5.5 #) [facility] HospitalKeavnoxOHNISGTDIA3976-64-95 09:29:00 Test Item Value Reference Range Interpretation Comments Monocytes # (test code 1.0 See_Comment [Aut omated message] The = Monocytes #) system which generated this result tra nsmitted reference range : <=0.8. The reference r jillian was not used to int erpret this result as normal/abnormal . [facility] CenterXnatqekPIQCBMRAHT3460-80-58 09:29:00 Test Item Value Reference Range Interpretation Comments Macrocyte (test code = 1+ *ABN*(12/08/22 Macrocyte) 4:29 AM) [facility]XvpjyasWHYHHMUHRI3770-49-34 09:29:00 Test Item Value Reference Range Interpretation Comments PT (test code = PT) 14.5 s 12.0-14.7 [facility] BtlshzmFHOBXRTEHU8875-39-81 09:29:00 Test Item Value Reference Range Interpretation Comments INR (test code = INR) 1.13 1 0.85-1.17 [facility]YusvgdwZOFBGSBTEJ9574-28-81 09:29:00 Test Item Value Reference Range Interpretation Comments PTT (test code = PTT) 32.1 s 22.9-35.8 [facility] [employer] [id number] 09:29:00 Test Item Value Reference Range Interpretation Comments Antibody Scrn (test Negative (12/08/22 4:29 code = Antibody Scrn) AM) [facility] [employer] [id number] 09:29:00 Test Item Value Reference Range Interpretation Comments ABO/Rh (test code = ABO/Rh) O POS [facility] [employer]2023-03-12 09:29:00 Test Item Value Reference Range Interpretation Comments Glucose Lvl (test code = Glucose Lvl) 101 70-99 [facility] [employer]2023-03-12 09:29:00 Test Item Value Reference Range Interpretation Comments BUN (test code = BUN) 62 7-22 [place] 553953-03-12 09:29:00 Test Item Value Reference Range Interpretation Comments Creatinine Lvl (test code = Creatinine 9.67 0.50-1.40 Lvl) [place] 553953-03-12 09:29:00 Test Item Value Reference Range Interpretation Comments Sodium Lvl (test code = Sodium Lvl) 133 135-145 [place] [address]-03-12 09:29:00 Test Item Value Reference Range Interpretation Comments Potassium Lvl (test code = Potassium 5.3 3.5-5.1 Lvl) [place] [address]-03-12 09:29:00 Test Item Value Reference Range Interpretation Comments Chloride Lvl (test code = Chloride Lvl) 103 95-109 [place] 553953-03-12 09:29:00 Test Item Value Reference Range Interpretation Comments CO2 (test code = CO2) 24 24-32 [place] [address]-03-12 09:29:00 Test Item Value Reference Range Interpretation Comments AGAP (test code = AGAP) 11.3 10.0-20.0 [place] [address]-03-12 09:29:00 Test Item Value Reference Range Interpretation Comments Calcium Lvl (test code = Calcium Lvl) 8.2 8.5-10.5 [place] 553953-03-12 09:29:00 Test Item Value Reference Range Interpretation Comments eGFR (test code = eGFR) 6 [place] [address]-03-12 09:29:00 Test Item Value Reference Range Interpretation Comments WBC (test code = WBC) 9.0 3.7-10.4 [place] [address]-03-12 09:29:00 Test Item Value Reference Range Interpretation Comments RBC (test code = RBC) 3.27 4.70-6.10 [place] [address]-03-12 09:29:00 Test Item Value Reference Range Interpretation Comments Hgb (test code = Hgb) 11.1 14.0-18.0 [place] [address]-03-12 09:29:00 Test Item Value Reference Range Interpretation Comments Hct (test code = Hct) 33.7 42.0-54.0 [place] [address]-03-12 09:29:00 Test Item Value Reference Range Interpretation Comments MCV (test code = MCV) 102.8 80.0-94.0 [place] 036773-03-12 09:29:00 Test Item Value Reference Range Interpretation Comments MCH (test code = MCH) 33.8 pg 27.0-31.0 [facility]WptfdehVKPAJKVQDJ2758-24-43 09:29:00 Test Item Value Reference Range Interpretation Comments MCHC (test code = MCHC) 32.9 32.0-36.0 [place] 036773-03-12 09:29:00 Test Item Value Reference Range Interpretation Comments RDW (test code = RDW) 15.0 11.5-14.5 [place] 036773-03-12 09:29:00 Test Item Value Reference Range Interpretation Comments Platelet (test code = Platelet) 188 133-450 [facility] CenterWfateifWGELTCIFVU4989-78-25 09:29:00 Test Item Value Reference Range Interpretation Comments MPV (test code = MPV) 8.6 7.4-10.4 [place] 036773-03-12 09:29:00 Test Item Value Reference Range Interpretation Comments PT (test code = PT) 14.5 s 12.0-14.7 [place] [address]-03-12 09:29:00 Test Item Value Reference Range Interpretation Comments INR (test code = INR) 1.13 1 0.85-1.17 [place] [address]-03-12 09:29:00 Test Item Value Reference Range Interpretation Comments PTT (test code = PTT) 32.1 s 22.9-35.8 [place] [address]-03-12 09:29:00 Test Item Value Reference Range Interpretation Comments Segs (test code = Segs) 70.6 45.0-75.0 [place] [address]-03-12 09:29:00 Test Item Value Reference Range Interpretation Comments Lymphocytes (test code = Lymphocytes) 18.1 20.0-40.0 [place] [address]-03-12 09:29:00 Test Item Value Reference Range Interpretation Comments Monocytes (test code = Monocytes) 10.7 2.0-12.0 [place] [address]-03-12 09:29:00 Test Item Value Reference Range Interpretation Comments Eosinophils (test code = 0.2 See_Comment [A utomated message] The Eosinophils) system which ge nerated this result tra nsmitted reference range : <=4.0. The reference r jillian was not used to int erpret this result as normal/abnormal . [facility] CenterDmnznzsVQJEYTMPAA3707-15-55 09:29:00 Test Item Value Reference Range Interpretation Comments Basophils (test code = 0.4 See_Comment [Aut omated message] The Basophils) system which ge nerated this result tra nsmitted reference range : <=1.0. The reference r jillian was not used to int erpret this result as normal/abnormal . [facility] CenterRtwhnaoQGCXFCRBZC0052-74-60 09:29:00 Test Item Value Reference Range Interpretation Comments Neutrophils # (test code = Neutrophils 6.4 1.5-8.1 #) [facility] CenterYgeroffHRPPNFHDUR5984-84-61 09:29:00 Test Item Value Reference Range Interpretation Comments Lymphocytes # (test code = Lymphocytes 1.6 1.0-5.5 #) [facility] CenterHjnhlynZRZSVILHYA5899-00-00 09:29:00 Test Item Value Reference Range Interpretation Comments Monocytes # (test code 1.0 See_Comment [Aut omated message] The = Monocytes #) system which generated this result tra nsmitted reference range : <=0.8. The reference r jillian was not used to int erpret this result as normal/abnormal . [facility] CenterWcpzuvjMBZDFVUQYK6556-04-51 09:29:00 Test Item Value Reference Range Interpretation Comments Macrocyte (test code = 1+ *ABN*(12/08/22 Macrocyte) 4:29 AM) [facility] CenterKbdqaitYPPTVNPEKE3300-50-55 09:29:00 Test Item Value Reference Range Interpretation Comments PT (test code = PT) 14.5 s 12.0-14.7 [facility] CenterLkhkmxpJVIGZTLOYV8337-87-11 09:29:00 Test Item Value Reference Range Interpretation Comments INR (test code = INR) 1.13 1 0.85-1.17 [facility] CenterEsivrrpTCJAEHYEHI8127-20-77 09:29:00 Test Item Value Reference Range Interpretation Comments PTT (test code = PTT) 32.1 s 22.9-35.8 [facility] [id number] 09:29:00 Test Item Value Reference Range Interpretation Comments Antibody Scrn (test Negative (12/08/22 4:29 code = Antibody Scrn) AM) [facility] [id number] 09:29:00 Test Item Value Reference Range Interpretation Comments ABO/Rh (test code = ABO/Rh) O POS [facility] [id number] 09:29:00 Test Item Value Reference Range Interpretation Comments Glucose Lvl (test code = Glucose Lvl) 101 70-[address] [facility] ENBIH3546-34-02 09:29:00 Test Item Value Reference Range Interpretation Comments BUN (test code = BUN) 62 7-22 [facility]2023-03-12 09:29:00 Test Item Value Reference Range Interpretation Comments Creatinine Lvl (test code = Creatinine 9.67 0.50-1.40 Lvl) [facility]2023-03-12 09:29:00 Test Item Value Reference Range Interpretation Comments Sodium Lvl (test code = Sodium Lvl) 133 135-145 [facility] YRJJC9442-30-42 09:29:00 Test Item Value Reference Range Interpretation Comments Potassium Lvl (test code = Potassium 5.3 3.5-5.1 Lvl) [facility] [id number] 09:29:00 Test Item Value Reference Range Interpretation Comments Chloride Lvl (test code = Chloride Lvl) 103 95-109 [facility] RCBYC6069-59-40 09:29:00 Test Item Value Reference Range Interpretation Comments CO2 (test code = CO2) 24 24-[address] [facility] [id number] 09:29:00 Test Item Value Reference Range Interpretation Comments AGAP (test code = AGAP) 11.3 10.0-20.[address] [facility] [id number] 09:29:00 Test Item Value Reference Range Interpretation Comments Calcium Lvl (test code = Calcium Lvl) 8.2 8.5-10.[address] [facility] [id number] 09:29:00 Test Item Value Reference Range Interpretation Comments eGFR (test code = eGFR) 6 [facility] CenterLiltwajXHYKSWZVWK3130-38-71 09:29:00 Test Item Value Reference Range Interpretation Comments WBC (test code = WBC) 9.0 3.7-10.4 [facility] CenterGzghluiOBSZDXVXNJ9171-81-91 09:29:00 Test Item Value Reference Range Interpretation Comments RBC (test code = RBC) 3.27 4.70-6.10 [place] 036773-03-12 09:29:00 Test Item Value Reference Range Interpretation Comments Hgb (test code = Hgb) 11.1 14.0-18.0 [place] [address]-03-12 09:29:00 Test Item Value Reference Range Interpretation Comments Hct (test code = Hct) 33.7 42.0-54.0 [place] [address]-03-12 09:29:00 Test Item Value Reference Range Interpretation Comments MCV (test code = MCV) 102.8 80.0-94.0 [place] 036773-03-12 09:29:00 Test Item Value Reference Range Interpretation Comments MCH (test code = MCH) 33.8 pg 27.0-31.0 [place] [address]-03-12 09:29:00 Test Item Value Reference Range Interpretation Comments MCHC (test code = MCHC) 32.9 32.0-36.0 [place] 036773-03-12 09:29:00 Test Item Value Reference Range Interpretation Comments RDW (test code = RDW) 15.0 11.5-14.5 [place] [address]-03-12 09:29:00 Test Item Value Reference Range Interpretation Comments Platelet (test code = Platelet) 188 133-450 [facility] CenterBbnuwhfZXPXUAOLOD7652-46-83 09:29:00 Test Item Value Reference Range Interpretation Comments MPV (test code = MPV) 8.6 7.4-10.4 [place] [address]-03-12 09:29:00 Test Item Value Reference Range Interpretation Comments PT (test code = PT) 14.5 s 12.0-14.7 [place] [address]-03-12 09:29:00 Test Item Value Reference Range Interpretation Comments INR (test code = INR) 1.13 1 0.85-1.17 [place] [address]-03-12 09:29:00 Test Item Value Reference Range Interpretation Comments PTT (test code = PTT) 32.1 s 22.9-35.8 [place] [address]-03-12 09:29:00 Test Item Value Reference Range Interpretation Comments Segs (test code = Segs) 70.6 45.0-75.0 [place] [address]-03-12 09:29:00 Test Item Value Reference Range Interpretation Comments Lymphocytes (test code = Lymphocytes) 18.1 20.0-40.0 [place] [address]-03-12 09:29:00 Test Item Value Reference Range Interpretation Comments Monocytes (test code = Monocytes) 10.7 2.0-12.0 [place] [address]-03-12 09:29:00 Test Item Value Reference Range Interpretation Comments Eosinophils (test code = 0.2 See_Comment [A utomated message] The Eosinophils) system which ge nerated this result tra nsmitted reference range : <=4.0. The reference r jillian was not used to int erpret this result as normal/abnormal . [place] [address]-03-12 09:29:00 Test Item Value Reference Range Interpretation Comments Basophils (test code = 0.4 See_Comment [Aut omated message] The Basophils) system which ge nerated this result tra nsmitted reference range : <=1.0. The reference r jillian was not used to int erpret this result as normal/abnormal . [place] [address]-03-12 09:29:00 Test Item Value Reference Range Interpretation Comments Neutrophils # (test code = Neutrophils 6.4 1.5-8.1 #) [place] [address]-03-12 09:29:00 Test Item Value Reference Range Interpretation Comments Lymphocytes # (test code = Lymphocytes 1.6 1.0-5.5 #) [place] [address]-03-12 09:29:00 Test Item Value Reference Range Interpretation Comments Monocytes # (test code 1.0 See_Comment [Aut omated message] The = Monocytes #) system which generated this result tra nsmitted reference range : <=0.8. The reference r jillian was not used to int erpret this result as normal/abnormal . [place] [address]-03-12 09:29:00 Test Item Value Reference Range Interpretation Comments Macrocyte (test code = 1+ *ABN*(12/08/22 Macrocyte) 4:29 AM) [place] [address]-03-12 09:29:00 Test Item Value Reference Range Interpretation Comments PT (test code = PT) 14.5 s 12.0-14.7 [place] [address]-03-12 09:29:00 Test Item Value Reference Range Interpretation Comments INR (test code = INR) 1.13 1 0.85-1.17 [place] 036773-03-12 09:29:00 Test Item Value Reference Range Interpretation Comments PTT (test code = PTT) 32.1 s 22.9-35.8 [place] 553953-03-11 11:20:00 Test Item Value Reference Range Interpretation Comments Glucose Lvl (test code = Glucose Lvl) 125 70-99 [place] 553953-03-11 11:20:00 Test Item Value Reference Range Interpretation Comments BUN (test code = BUN) 49 7-22 [place] 553953-03-11 11:20:00 Test Item Value Reference Range Interpretation Comments Creatinine Lvl (test code = Creatinine 8.68 0.50-1.40 Lvl) [place] 553953-03-11 11:20:00 Test Item Value Reference Range Interpretation Comments Sodium Lvl (test code = Sodium Lvl) 131 135-145 [place] 553953-03-11 11:20:00 Test Item Value Reference Range Interpretation Comments Potassium Lvl (test code = Potassium 5.4 3.5-5.1 Lvl) [facility]2023-03-11 11:20:00 Test Item Value Reference Range Interpretation Comments Chloride Lvl (test code = Chloride Lvl) 102 95-109 [place] 553953-03-11 11:20:00 Test Item Value Reference Range Interpretation Comments CO2 (test code = CO2) 22 24-32 [place] 553953-03-11 11:20:00 Test Item Value Reference Range Interpretation Comments AGAP (test code = AGAP) 12.4 10.0-20.0 [place] 553953-03-11 11:20:00 Test Item Value Reference Range Interpretation Comments Calcium Lvl (test code = Calcium Lvl) 8.8 8.5-10.5 [place] 553953-03-11 11:20:00 Test Item Value Reference Range Interpretation Comments eGFR (test code = eGFR) 7 [place] 036773-03-11 11:20:00 Test Item Value Reference Range Interpretation Comments WBC (test code = WBC) 13.5 3.7-10.4 [facility] CenterTizfxwxDJMAYVTMQW7136-58-24 11:20:00 Test Item Value Reference Range Interpretation Comments RBC (test code = RBC) 3.62 4.70-6.10 [facility] CenterVvmwbmwCOOVJPIZSB0364-27-27 11:20:00 Test Item Value Reference Range Interpretation Comments Hgb (test code = Hgb) 12.1 14.0-18.0 [facility] CenterQmgcgkjLREWPGLVOS9855-59-17 11:20:00 Test Item Value Reference Range Interpretation Comments Hct (test code = Hct) 37.2 42.0-54.0 [facility] CenterVkterlhLIGEYNNRNR0608-10-73 11:20:00 Test Item Value Reference Range Interpretation Comments MCV (test code = MCV) 102.8 80.0-94.0 [facility] CenterDshmszaDMMIWVCTKL6738-31-14 11:20:00 Test Item Value Reference Range Interpretation Comments MCH (test code = MCH) 33.5 pg 27.0-31.0 [facility] CenterOxvtdkuWTXDZWTHNV5350-62-18 11:20:00 Test Item Value Reference Range Interpretation Comments MCHC (test code = MCHC) 32.6 32.0-36.0 [facility] CenterGpqqcrbWDUYTNIHNW1947-53-10 11:20:00 Test Item Value Reference Range Interpretation Comments RDW (test code = RDW) 15.1 11.5-14.5 [facility] CenterNzedtotVKRJSPJALC2665-64-60 11:20:00 Test Item Value Reference Range Interpretation Comments Platelet (test code = Platelet) 195 133-450 [facility] CenterLxxgciyQRRJKERKJG7435-05-76 11:20:00 Test Item Value Reference Range Interpretation Comments MPV (test code = MPV) 8.4 7.4-10.4 [facility] CenterBxohlgvTLMFHETQGU3505-13-00 11:20:00 Test Item Value Reference Range Interpretation Comments Segs (test code = Segs) 84.0 45.0-75.0 [facility] CenterUjunutfQBDKTXVIYB6737-52-15 11:20:00 Test Item Value Reference Range Interpretation Comments Lymphocytes (test code = Lymphocytes) 6.4 20.0-40.0 [facility] CenterLecbdyjPLVSLNFKYR9733-05-90 11:20:00 Test Item Value Reference Range Interpretation Comments Monocytes (test code = Monocytes) 9.5 2.0-12.0 [place] [address]-03-11 11:20:00 Test Item Value Reference Range Interpretation Comments Basophils (test code = 0.1 See_Comment [Aut omated message] The Basophils) system which ge nerated this result tra nsmitted reference range : <=1.0. The reference r jillian was not used to int erpret this result as normal/abnormal . [place] 036773-03-11 11:20:00 Test Item Value Reference Range Interpretation Comments Neutrophils # (test code = Neutrophils 11.4 1.5-8.1 #) [place] 036773-03-11 11:20:00 Test Item Value Reference Range Interpretation Comments Lymphocytes # (test code = Lymphocytes 0.9 1.0-5.5 #) [place] 036773-03-11 11:20:00 Test Item Value Reference Range Interpretation Comments Monocytes # (test code 1.3 See_Comment [Aut omated message] The = Monocytes #) system which generated this result tra nsmitted reference range : <=0.8. The reference r jillian was not used to int erpret this result as normal/abnormal . [facility] CenterVhlldygLBCPVVVQHN7251-17-40 11:20:00 Test Item Value Reference Range Interpretation Comments Macrocyte (test code = 1+ *ABN*(12/07/22 Macrocyte) 5:20 AM) [facility]2023-03-11 11:20:00 Test Item Value Reference Range Interpretation Comments Glucose Lvl (test code = Glucose Lvl) 125 70-[address] [facility] QPJDY0662-60-04 11:20:00 Test Item Value Reference Range Interpretation Comments BUN (test code = BUN) 49 7-22 [place] 553953-03-11 11:20:00 Test Item Value Reference Range Interpretation Comments Creatinine Lvl (test code = Creatinine 8.68 0.50-1.40 Lvl) [place] 553953-03-11 11:20:00 Test Item Value Reference Range Interpretation Comments Sodium Lvl (test code = Sodium Lvl) 131 135-145 [facility]2023-03-11 11:20:00 Test Item Value Reference Range Interpretation Comments Potassium Lvl (test code = Potassium 5.4 3.5-5.1 Lvl) [place] 553953-03-11 11:20:00 Test Item Value Reference Range Interpretation Comments Chloride Lvl (test code = Chloride Lvl) 102 95-109 [place] 553953-03-11 11:20:00 Test Item Value Reference Range Interpretation Comments CO2 (test code = CO2) 22 24-32 [place] [address]-03-11 11:20:00 Test Item Value Reference Range Interpretation Comments AGAP (test code = AGAP) 12.4 10.0-20.0 [place] [address]-03-11 11:20:00 Test Item Value Reference Range Interpretation Comments Calcium Lvl (test code = Calcium Lvl) 8.8 8.5-10.5 [place] 553953-03-11 11:20:00 Test Item Value Reference Range Interpretation Comments eGFR (test code = eGFR) 7 [facility] CenterYjobzzkGEQIMAGGQG0070-88-32 11:20:00 Test Item Value Reference Range Interpretation Comments WBC (test code = WBC) 13.5 3.7-10.4 [place] 036773-03-11 11:20:00 Test Item Value Reference Range Interpretation Comments RBC (test code = RBC) 3.62 4.70-6.10 [place] 036773-03-11 11:20:00 Test Item Value Reference Range Interpretation Comments Hgb (test code = Hgb) 12.1 14.0-18.0 [place] [address]-03-11 11:20:00 Test Item Value Reference Range Interpretation Comments Hct (test code = Hct) 37.2 42.0-54.0 [place] [address]-03-11 11:20:00 Test Item Value Reference Range Interpretation Comments MCV (test code = MCV) 102.8 80.0-94.0 [place] [address]-03-11 11:20:00 Test Item Value Reference Range Interpretation Comments MCH (test code = MCH) 33.5 pg 27.0-31.0 [place] 036773-03-11 11:20:00 Test Item Value Reference Range Interpretation Comments MCHC (test code = MCHC) 32.6 32.0-36.0 [place] [address]-03-11 11:20:00 Test Item Value Reference Range Interpretation Comments RDW (test code = RDW) 15.1 11.5-14.5 [place] 036773-03-11 11:20:00 Test Item Value Reference Range Interpretation Comments Platelet (test code = Platelet) 195 133-450 [facility] CenterRcjuwdtFKLVTLXJWH3152-60-69 11:20:00 Test Item Value Reference Range Interpretation Comments MPV (test code = MPV) 8.4 7.4-10.4 [place] 036773-03-11 11:20:00 Test Item Value Reference Range Interpretation Comments Segs (test code = Segs) 84.0 45.0-75.0 [place] 036773-03-11 11:20:00 Test Item Value Reference Range Interpretation Comments Lymphocytes (test code = Lymphocytes) 6.4 20.0-40.0 [place] 036773-03-11 11:20:00 Test Item Value Reference Range Interpretation Comments Monocytes (test code = Monocytes) 9.5 2.0-12.0 [place] 036773-03-11 11:20:00 Test Item Value Reference Range Interpretation Comments Basophils (test code = 0.1 See_Comment [Aut omated message] The Basophils) system which ge nerated this result tra nsmitted reference range : <=1.0. The reference r jillian was not used to int erpret this result as normal/abnormal . [facility] CenterCzdzqjdYSBBZBGTRU1669-99-91 11:20:00 Test Item Value Reference Range Interpretation Comments Neutrophils # (test code = Neutrophils 11.4 1.5-8.1 #) [facility] CenterJlsqwifXHGUFNUTBG7201-90-83 11:20:00 Test Item Value Reference Range Interpretation Comments Lymphocytes # (test code = Lymphocytes 0.9 1.0-5.5 #) [place] 036773-03-11 11:20:00 Test Item Value Reference Range Interpretation Comments Monocytes # (test code 1.3 See_Comment [Aut omated message] The = Monocytes #) system which generated this result tra nsmitted reference range : <=0.8. The reference r jillian was not used to int erpret this result as normal/abnormal . [place] 036773-03-11 11:20:00 Test Item Value Reference Range Interpretation Comments Macrocyte (test code = 1+ *ABN*(12/07/22 Macrocyte) 5:20 AM) [place] 553953-03-11 11:20:00 Test Item Value Reference Range Interpretation Comments Glucose Lvl (test code = Glucose Lvl) 125 70-99 [place] 553953-03-11 11:20:00 Test Item Value Reference Range Interpretation Comments BUN (test code = BUN) 49 7-22 [place] [address]-03-11 11:20:00 Test Item Value Reference Range Interpretation Comments Creatinine Lvl (test code = Creatinine 8.68 0.50-1.40 Lvl) [place] 553953-03-11 11:20:00 Test Item Value Reference Range Interpretation Comments Sodium Lvl (test code = Sodium Lvl) 131 135-145 [place] 553953-03-11 11:20:00 Test Item Value Reference Range Interpretation Comments Potassium Lvl (test code = Potassium 5.4 3.5-5.1 Lvl) [place] 553953-03-11 11:20:00 Test Item Value Reference Range Interpretation Comments Chloride Lvl (test code = Chloride Lvl) 102 95-109 [place] 553953-03-11 11:20:00 Test Item Value Reference Range Interpretation Comments CO2 (test code = CO2) 22 24-32 [place] 553953-03-11 11:20:00 Test Item Value Reference Range Interpretation Comments AGAP (test code = AGAP) 12.4 10.0-20.0 [facility]2023-03-11 11:20:00 Test Item Value Reference Range Interpretation Comments Calcium Lvl (test code = Calcium Lvl) 8.8 8.5-10.5 [place] 553953-03-11 11:20:00 Test Item Value Reference Range Interpretation Comments eGFR (test code = eGFR) 7 [place] 036773-03-11 11:20:00 Test Item Value Reference Range Interpretation Comments WBC (test code = WBC) 13.5 3.7-10.4 [place] 036773-03-11 11:20:00 Test Item Value Reference Range Interpretation Comments RBC (test code = RBC) 3.62 4.70-6.10 [place] [address]-03-11 11:20:00 Test Item Value Reference Range Interpretation Comments Hgb (test code = Hgb) 12.1 14.0-18.0 [facility] CenterAxfucysQVRNBAKWQA2622-09-64 11:20:00 Test Item Value Reference Range Interpretation Comments Hct (test code = Hct) 37.2 42.0-54.0 [facility] CenterGlvzdwoZDVEBQBZID4600-34-75 11:20:00 Test Item Value Reference Range Interpretation Comments MCV (test code = MCV) 102.8 80.0-94.0 [facility] CenterIfqbeewBJIHJKLSHY2960-94-57 11:20:00 Test Item Value Reference Range Interpretation Comments MCH (test code = MCH) 33.5 pg 27.0-31.0 [facility] CenterVqefyflAHNRXSGRCM3439-12-42 11:20:00 Test Item Value Reference Range Interpretation Comments MCHC (test code = MCHC) 32.6 32.0-36.0 [facility] CenterWojfjmwTZQZEUPRQE0326-42-11 11:20:00 Test Item Value Reference Range Interpretation Comments RDW (test code = RDW) 15.1 11.5-14.5 [facility] CenterEudjgprASCYTFQZEC8510-56-15 11:20:00 Test Item Value Reference Range Interpretation Comments Platelet (test code = Platelet) 195 133-450 [facility] CenterKhbrpqkNJGGJDMLZK1331-29-22 11:20:00 Test Item Value Reference Range Interpretation Comments MPV (test code = MPV) 8.4 7.4-10.4 [facility] CenterVgpggxiWVLLSEEOKW7430-55-55 11:20:00 Test Item Value Reference Range Interpretation Comments Segs (test code = Segs) 84.0 45.0-75.0 [facility] CenterEwxvtbhJMRZBCFLJN4039-49-57 11:20:00 Test Item Value Reference Range Interpretation Comments Lymphocytes (test code = Lymphocytes) 6.4 20.0-40.0 [place] [address]-03-11 11:20:00 Test Item Value Reference Range Interpretation Comments Monocytes (test code = Monocytes) 9.5 2.0-12.0 [place] [address]-03-11 11:20:00 Test Item Value Reference Range Interpretation Comments Basophils (test code = 0.1 See_Comment [Aut omated message] The Basophils) system which ge nerated this result tra nsmitted reference range : <=1.0. The reference r jillian was not used to int erpret this result as normal/abnormal . [place] [address]-03-11 11:20:00 Test Item Value Reference Range Interpretation Comments Neutrophils # (test code = Neutrophils 11.4 1.5-8.1 #) [place] 036773-03-11 11:20:00 Test Item Value Reference Range Interpretation Comments Lymphocytes # (test code = Lymphocytes 0.9 1.0-5.5 #) [place] [address]-03-11 11:20:00 Test Item Value Reference Range Interpretation Comments Monocytes # (test code 1.3 See_Comment [Aut omated message] The = Monocytes #) system which generated this result tra nsmitted reference range : <=0.8. The reference r jillian was not used to int erpret this result as normal/abnormal . [place] 036773-03-11 11:20:00 Test Item Value Reference Range Interpretation Comments Macrocyte (test code = 1+ *ABN*(12/07/22 Macrocyte) 5:20 AM) [place] 553953-03-11 11:20:00 Test Item Value Reference Range Interpretation Comments Glucose Lvl (test code = Glucose Lvl) 125 70-99 [place] 553953-03-11 11:20:00 Test Item Value Reference Range Interpretation Comments BUN (test code = BUN) 49 7-22 [place] 553953-03-11 11:20:00 Test Item Value Reference Range Interpretation Comments Creatinine Lvl (test code = Creatinine 8.68 0.50-1.40 Lvl) [place] 553953-03-11 11:20:00 Test Item Value Reference Range Interpretation Comments Sodium Lvl (test code = Sodium Lvl) 131 135-145 [place] 553953-03-11 11:20:00 Test Item Value Reference Range Interpretation Comments Potassium Lvl (test code = Potassium 5.4 3.5-5.1 Lvl) [place] 553953-03-11 11:20:00 Test Item Value Reference Range Interpretation Comments Chloride Lvl (test code = Chloride Lvl) 102 95-109 [place] 553953-03-11 11:20:00 Test Item Value Reference Range Interpretation Comments CO2 (test code = CO2) 22 24-32 [place] 553953-03-11 11:20:00 Test Item Value Reference Range Interpretation Comments AGAP (test code = AGAP) 12.4 10.0-20.0 [facility] [id number] 11:20:00 Test Item Value Reference Range Interpretation Comments Calcium Lvl (test code = Calcium Lvl) 8.8 8.5-10.5 [facility] AKEJP0296-69-62 11:20:00 Test Item Value Reference Range Interpretation Comments eGFR (test code = eGFR) 7 [facility] CenterDoubmxtYAKSDMNGMM3633-55-30 11:20:00 Test Item Value Reference Range Interpretation Comments WBC (test code = WBC) 13.5 3.7-10.4 [facility] CenterMsrorxfFRENBWFNFW1056-36-91 11:20:00 Test Item Value Reference Range Interpretation Comments RBC (test code = RBC) 3.62 4.70-6.10 [facility] CenterBfkgnvcXEQIYOYLAN0716-86-52 11:20:00 Test Item Value Reference Range Interpretation Comments Hgb (test code = Hgb) 12.1 14.0-18.0 [facility] CenterJuloakmOXYQXKFEMB8993-68-51 11:20:00 Test Item Value Reference Range Interpretation Comments Hct (test code = Hct) 37.2 42.0-54.0 [facility] CenterHcychftYGQBOWSBXZ9028-83-08 11:20:00 Test Item Value Reference Range Interpretation Comments MCV (test code = MCV) 102.8 80.0-94.0 [facility] CenterBhofmabFPRCQLHWRY4712-46-62 11:20:00 Test Item Value Reference Range Interpretation Comments MCH (test code = MCH) 33.5 pg 27.0-31.0 [facility] CenterRsliehaSEGHUDWMAT5592-32-14 11:20:00 Test Item Value Reference Range Interpretation Comments MCHC (test code = MCHC) 32.6 32.0-36.0 [facility] CenterAycvczxCHOZOWHYQN1334-57-47 11:20:00 Test Item Value Reference Range Interpretation Comments RDW (test code = RDW) 15.1 11.5-14.5 [facility] CenterZhtxtfrUVPCEATDFC6987-05-76 11:20:00 Test Item Value Reference Range Interpretation Comments Platelet (test code = Platelet) 195 133-450 [facility] CenterEwxhdrjOWAQIQJRVX7923-34-21 11:20:00 Test Item Value Reference Range Interpretation Comments MPV (test code = MPV) 8.4 7.4-10.4 [place] 036773-03-11 11:20:00 Test Item Value Reference Range Interpretation Comments Segs (test code = Segs) 84.0 45.0-75.0 [place] 036773-03-11 11:20:00 Test Item Value Reference Range Interpretation Comments Lymphocytes (test code = Lymphocytes) 6.4 20.0-40.0 [place] 036773-03-11 11:20:00 Test Item Value Reference Range Interpretation Comments Monocytes (test code = Monocytes) 9.5 2.0-12.0 [place] 036773-03-11 11:20:00 Test Item Value Reference Range Interpretation Comments Basophils (test code = 0.1 See_Comment [Aut omated message] The Basophils) system which ge nerated this result tra nsmitted reference range : <=1.0. The reference r jillian was not used to int erpret this result as normal/abnormal . [place] 036773-03-11 11:20:00 Test Item Value Reference Range Interpretation Comments Neutrophils # (test code = Neutrophils 11.4 1.5-8.1 #) [facility] CenterBlfrcadOCKBBLTOXN7077-79-82 11:20:00 Test Item Value Reference Range Interpretation Comments Lymphocytes # (test code = Lymphocytes 0.9 1.0-5.5 #) [place] 036773-03-11 11:20:00 Test Item Value Reference Range Interpretation Comments Monocytes # (test code 1.3 See_Comment [Aut omated message] The = Monocytes #) system which generated this result tra nsmitted reference range : <=0.8. The reference r jillian was not used to int erpret this result as normal/abnormal . [facility] CenterVrrtaayKETOWVOCSB6107-47-72 11:20:00 Test Item Value Reference Range Interpretation Comments Macrocyte (test code = 1+ *ABN*(12/07/22 Macrocyte) 5:20 AM) [facility]2023-03-10 15:43:00 Test Item Value Reference Range Interpretation Comments Gluc POC Comment 2 (test code = Cleaned Meter Gluc POC Comment 2) [facility]2023-03-10 15:43:00 Test Item Value Reference Range Interpretation Comments Gluc POC Comment 2 (test code = Cleaned Meter Gluc POC Comment 2) [place] 788403-03-10 15:43:00 Test Item Value Reference Range Interpretation Comments Gluc POC Comment 2 (test code = Cleaned Meter Gluc POC Comment 2) [place] 788403-03-10 15:43:00 Test Item Value Reference Range Interpretation Comments Gluc POC Comment 2 (test code = Cleaned Meter Gluc POC Comment 2) [place] 036773-03-10 14:37:00 Test Item Value Reference Range Interpretation Comments WBC (test code = WBC) 8.5 3.7-10.4 [place] 036773-03-10 14:37:00 Test Item Value Reference Range Interpretation Comments RBC (test code = RBC) 3.56 4.70-6.10 [place] 036773-03-10 14:37:00 Test Item Value Reference Range Interpretation Comments Hgb (test code = Hgb) 12.1 14.0-18.0 [place] [address]-03-10 14:37:00 Test Item Value Reference Range Interpretation Comments Hct (test code = Hct) 37.2 42.0-54.0 [place] 036773-03-10 14:37:00 Test Item Value Reference Range Interpretation Comments MCV (test code = MCV) 104.6 80.0-94.0 [place] [address]-03-10 14:37:00 Test Item Value Reference Range Interpretation Comments MCH (test code = MCH) 33.9 pg 27.0-31.0 [place] 036773-03-10 14:37:00 Test Item Value Reference Range Interpretation Comments MCHC (test code = MCHC) 32.4 32.0-36.0 [place] 036773-03-10 14:37:00 Test Item Value Reference Range Interpretation Comments RDW (test code = RDW) 15.1 11.5-14.5 [place] [address]-03-10 14:37:00 Test Item Value Reference Range Interpretation Comments Platelet (test code = Platelet) 189 133-450 [place] 036773-03-10 14:37:00 Test Item Value Reference Range Interpretation Comments MPV (test code = MPV) 7.9 7.4-10.4 [place] 036773-03-10 14:37:00 Test Item Value Reference Range Interpretation Comments WBC (test code = WBC) 8.5 3.7-10.4 [place] 036773-03-10 14:37:00 Test Item Value Reference Range Interpretation Comments RBC (test code = RBC) 3.56 4.70-6.10 [place] 036773-03-10 14:37:00 Test Item Value Reference Range Interpretation Comments Hgb (test code = Hgb) 12.1 14.0-18.0 [place] [address]-03-10 14:37:00 Test Item Value Reference Range Interpretation Comments Hct (test code = Hct) 37.2 42.0-54.0 [place] 036773-03-10 14:37:00 Test Item Value Reference Range Interpretation Comments MCV (test code = MCV) 104.6 80.0-94.0 [place] 036773-03-10 14:37:00 Test Item Value Reference Range Interpretation Comments MCH (test code = MCH) 33.9 pg 27.0-31.0 [place] [address]-03-10 14:37:00 Test Item Value Reference Range Interpretation Comments MCHC (test code = MCHC) 32.4 32.0-36.0 [facility] CenterMysescyTSANZBETSJ7694-38-83 14:37:00 Test Item Value Reference Range Interpretation Comments RDW (test code = RDW) 15.1 11.5-14.5 [place] [address]-03-10 14:37:00 Test Item Value Reference Range Interpretation Comments Platelet (test code = Platelet) 189 133-450 [facility] CenterIzascqjGOUUBJVKVR9168-68-78 14:37:00 Test Item Value Reference Range Interpretation Comments MPV (test code = MPV) 7.9 7.4-10.4 [place] [address]-03-10 14:37:00 Test Item Value Reference Range Interpretation Comments WBC (test code = WBC) 8.5 3.7-10.4 [place] [address]-03-10 14:37:00 Test Item Value Reference Range Interpretation Comments RBC (test code = RBC) 3.56 4.70-6.10 [place] 036773-03-10 14:37:00 Test Item Value Reference Range Interpretation Comments Hgb (test code = Hgb) 12.1 14.0-18.0 [place] [address]-03-10 14:37:00 Test Item Value Reference Range Interpretation Comments Hct (test code = Hct) 37.2 42.0-54.0 [place] [address]-03-10 14:37:00 Test Item Value Reference Range Interpretation Comments MCV (test code = MCV) 104.6 80.0-94.0 [place] [address]-03-10 14:37:00 Test Item Value Reference Range Interpretation Comments MCH (test code = MCH) 33.9 pg 27.0-31.0 [place] [address]-03-10 14:37:00 Test Item Value Reference Range Interpretation Comments MCHC (test code = MCHC) 32.4 32.0-36.0 [place] [address]-03-10 14:37:00 Test Item Value Reference Range Interpretation Comments RDW (test code = RDW) 15.1 11.5-14.5 [place] 036773-03-10 14:37:00 Test Item Value Reference Range Interpretation Comments Platelet (test code = Platelet) 189 133-450 [facility] CenterMscmozfVQHNYKJRVF1839-19-74 14:37:00 Test Item Value Reference Range Interpretation Comments MPV (test code = MPV) 7.9 7.4-10.4 [place] [address]-03-10 14:37:00 Test Item Value Reference Range Interpretation Comments WBC (test code = WBC) 8.5 3.7-10.4 [place] 036773-03-10 14:37:00 Test Item Value Reference Range Interpretation Comments RBC (test code = RBC) 3.56 4.70-6.10 [place] [address]-03-10 14:37:00 Test Item Value Reference Range Interpretation Comments Hgb (test code = Hgb) 12.1 14.0-18.0 [place] [address]-03-10 14:37:00 Test Item Value Reference Range Interpretation Comments Hct (test code = Hct) 37.2 42.0-54.0 [place] [address]-03-10 14:37:00 Test Item Value Reference Range Interpretation Comments MCV (test code = MCV) 104.6 80.0-94.0 [place] [address]-03-10 14:37:00 Test Item Value Reference Range Interpretation Comments MCH (test code = MCH) 33.9 pg 27.0-31.0 [facility] CenterLiamequMXVDHMDXZS4204-91-41 14:37:00 Test Item Value Reference Range Interpretation Comments MCHC (test code = MCHC) 32.4 32.0-36.0 [facility] CenterXktisedUVFFXUIIRU4599-36-53 14:37:00 Test Item Value Reference Range Interpretation Comments RDW (test code = RDW) 15.1 11.5-14.5 [facility] CenterAwxafqbJIHYZFISWP4629-41-83 14:37:00 Test Item Value Reference Range Interpretation Comments Platelet (test code = Platelet) 189 133-450 [facility] CenterHoprrknGDPEAIJIWG1201-58-43 14:37:00 Test Item Value Reference Range Interpretation Comments MPV (test code = MPV) 7.9 7.4-10.4 [place] 62093023-03-10 13:44:17 Test Item Value Reference Range Interpretation [...] placement. Matty Cote MD On 12/06/2022 07:43:05; [id number] [place] 62093023-03-10 13:44:17 Test Item Value Reference Range Interpretation [...] placement. Matty Cote MD On 12/06/2022 07:43:05; [id number] [facility]P4057[facility]88-86 13:44:17 Test Item Value Reference Range Interpretation [...] placement. Matty Cote MD On 12/06/2022 07:43:05; [id number] [facility]cvmcfhSFBLTY3920-20-19 13:44:17 Test Item Value Reference Range Interpretation [...] placement. Matty Cote MD On 12/06/2022 07:43:05; [id number] [facility]MC9317[facility]15-48 18:34:00 Test Item Value Reference Range Interpretation Comments Coronavirus (COVID-19) Not Detected (12/05/22 CHUCKIE (test code = 12:34 PM) Coronavirus (COVID-19) CHUCKIE) [place] [address]-03-09 18:34:00 Test Item Value Reference Range Interpretation Comments Coronavirus (COVID-19) Not Detected (12/05/22 CHUCKIE (test code = 12:34 PM) Coronavirus (COVID-19) CHUCKIE) [facility]rzwymdSETXJNHQIZ0713-71-37 18:34:00 Test Item Value Reference Range Interpretation Comments Coronavirus (COVID-19) Not Detected (12/05/22 CHUCKIE (test code = 12:34 PM) Coronavirus (COVID-19) CHUCKIE) [place] [address]-03-09 18:34:00 Test Item Value Reference Range Interpretation Comments Coronavirus (COVID-19) Not Detected (12/05/22 CHUCKIE (test code = 12:34 PM) Coronavirus (COVID-19) CHUCKIE) [place] [address]-03-09 18:34:00 Test Item Value Reference Range Interpretation Comments Coronavirus (COVID-19) Not Detected (12/05/22 CHUCKIE (test code = 12:34 PM) Coronavirus (COVID-19) CHUCKIE) [place] [address]-03-09 18:34:00 Test Item Value Reference Range Interpretation Comments Coronavirus (COVID-19) Not Detected (12/05/22 CHUCKIE (test code = 12:34 PM) Coronavirus (COVID-19) CHUCKIE) [place] [address]-03-09 18:34:00 Test Item Value Reference Range Interpretation Comments Coronavirus (COVID-19) Not Detected (12/05/22 CHUCKIE (test code = 12:34 PM) Coronavirus (COVID-19) CHUCKIE) [place] [address]-03-09 18:34:00 Test Item Value Reference Range Interpretation Comments Coronavirus (COVID-19) Not Detected (12/05/22 CHUCKIE (test code = 12:34 PM) Coronavirus (COVID-19) CHUCKIE) [place] [address]-03-08 23:51:00 Test Item Value Reference Range Interpretation Comments PT (test code = PT) 14.3 s 12.0-14.7 [place] 036773-03-08 23:51:00 Test Item Value Reference Range Interpretation Comments INR (test code = INR) 1.11 1 0.85-1.17 [place] [address]-03-08 23:51:00 Test Item Value Reference Range Interpretation Comments PTT (test code = PTT) 32.3 s 22.9-35.8 [place] [address]-03-08 23:51:00 Test Item Value Reference Range Interpretation Comments Segs (test code = Segs) 74.5 45.0-75.0 [place] [address]-03-08 23:51:00 Test Item Value Reference Range Interpretation Comments Lymphocytes (test code = Lymphocytes) 15.6 20.0-40.0 [place] [address]-03-08 23:51:00 Test Item Value Reference Range Interpretation Comments Monocytes (test code = Monocytes) 6.9 2.0-12.0 [facility] CenterAbgznrcRNFWHQNFIP5622-08-83 23:51:00 Test Item Value Reference Range Interpretation Comments Eosinophils (test code = 2.3 See_Comment [A utomated message] The Eosinophils) system which ge nerated this result tra nsmitted reference range : <=4.0. The reference r jillian was not used to int erpret this result as normal/abnormal . [place] 036773-03-08 23:51:00 Test Item Value Reference Range Interpretation Comments Basophils (test code = 0.7 See_Comment [Aut omated message] The Basophils) system which ge nerated this result tra nsmitted reference range : <=1.0. The reference r jillian was not used to int erpret this result as normal/abnormal . [place] 036773-03-08 23:51:00 Test Item Value Reference Range Interpretation Comments Neutrophils # (test code = Neutrophils 6.1 1.5-8.1 #) [place] [address]-03-08 23:51:00 Test Item Value Reference Range Interpretation Comments Lymphocytes # (test code = Lymphocytes 1.3 1.0-5.5 #) [place] [address]-03-08 23:51:00 Test Item Value Reference Range Interpretation Comments Monocytes # (test code 0.6 See_Comment [Aut omated message] The = Monocytes #) system which generated this result tra nsmitted reference range : <=0.8. The reference r jillian was not used to int erpret this result as normal/abnormal . [place] [address]-03-08 23:51:00 Test Item Value Reference Range Interpretation Comments Eosinophils # (test code 0.2 See_Comment [A utomated message] The = Eosinophils #) system whic h generated this result tra nsmitted reference range : <=0.5. The reference r jillian was not used to int erpret this result as normal/abnormal . [place] [address]-03-08 23:51:00 Test Item Value Reference Range Interpretation Comments Basophils # (test code 0.1 See_Comment [Aut omated message] The = Basophils #) system which generated this result tra nsmitted reference range : <=0.2. The reference r jillian was not used to int erpret this result as normal/abnormal . [place] [address]-03-08 23:51:00 Test Item Value Reference Range Interpretation Comments Macrocyte (test code = 1+ *ABN*(12/04/22 5:51 Macrocyte) PM) [place] [address]-03-08 23:51:00 Test Item Value Reference Range Interpretation Comments PT (test code = PT) 14.3 s 12.0-14.7 [place] [address]-03-08 23:51:00 Test Item Value Reference Range Interpretation Comments INR (test code = INR) 1.11 1 0.85-1.17 [place] [address]-03-08 23:51:00 Test Item Value Reference Range Interpretation Comments PTT (test code = PTT) 32.3 s 22.9-35.8 [place] [address]-03-08 23:51:00 Test Item Value Reference Range Interpretation Comments Segs (test code = Segs) 74.5 45.0-75.0 [place] [address]-03-08 23:51:00 Test Item Value Reference Range Interpretation Comments Lymphocytes (test code = Lymphocytes) 15.6 20.0-40.0 [place] 036773-03-08 23:51:00 Test Item Value Reference Range Interpretation Comments Monocytes (test code = Monocytes) 6.9 2.0-12.0 [place] 036773-03-08 23:51:00 Test Item Value Reference Range Interpretation Comments Eosinophils (test code = 2.3 See_Comment [A utomated message] The Eosinophils) system which ge nerated this result tra nsmitted reference range : <=4.0. The reference r jillian was not used to int erpret this result as normal/abnormal . [place] 036773-03-08 23:51:00 Test Item Value Reference Range Interpretation Comments Basophils (test code = 0.7 See_Comment [Aut omated message] The Basophils) system which ge nerated this result tra nsmitted reference range : <=1.0. The reference r jillian was not used to int erpret this result as normal/abnormal . [facility] CenterIcjsbynZCVJOYSGJO2670-33-38 23:51:00 Test Item Value Reference Range Interpretation Comments Neutrophils # (test code = Neutrophils 6.1 1.5-8.1 #) [place] 036773-03-08 23:51:00 Test Item Value Reference Range Interpretation Comments Lymphocytes # (test code = Lymphocytes 1.3 1.0-5.5 #) [place] 036773-03-08 23:51:00 Test Item Value Reference Range Interpretation Comments Monocytes # (test code 0.6 See_Comment [Aut omated message] The = Monocytes #) system which generated this result tra nsmitted reference range : <=0.8. The reference r jillian was not used to int erpret this result as normal/abnormal . [place] 036773-03-08 23:51:00 Test Item Value Reference Range Interpretation Comments Eosinophils # (test code 0.2 See_Comment [A utomated message] The = Eosinophils #) system whic h generated this result tra nsmitted reference range : <=0.5. The reference r jillian was not used to int erpret this result as normal/abnormal . [place] [address]-03-08 23:51:00 Test Item Value Reference Range Interpretation Comments Basophils # (test code 0.1 See_Comment [Aut omated message] The = Basophils #) system which generated this result tra nsmitted reference range : <=0.2. The reference r jillian was not used to int erpret this result as normal/abnormal . [place] 036773-03-08 23:51:00 Test Item Value Reference Range Interpretation Comments Macrocyte (test code = 1+ *ABN*(12/04/22 5:51 Macrocyte) PM) [place] [address]-03-08 23:51:00 Test Item Value Reference Range Interpretation Comments PT (test code = PT) 14.3 s 12.0-14.7 [place] [address]-03-08 23:51:00 Test Item Value Reference Range Interpretation Comments INR (test code = INR) 1.11 1 0.85-1.17 [place] [address]-03-08 23:51:00 Test Item Value Reference Range Interpretation Comments PTT (test code = PTT) 32.3 s 22.9-35.8 [place] [address]-03-08 23:51:00 Test Item Value Reference Range Interpretation Comments Segs (test code = Segs) 74.5 45.0-75.0 [place] [address]-03-08 23:51:00 Test Item Value Reference Range Interpretation Comments Lymphocytes (test code = Lymphocytes) 15.6 20.0-40.0 [place] [address]-03-08 23:51:00 Test Item Value Reference Range Interpretation Comments Monocytes (test code = Monocytes) 6.9 2.0-12.0 [place] [address]-03-08 23:51:00 Test Item Value Reference Range Interpretation Comments Eosinophils (test code = 2.3 See_Comment [A utomated message] The Eosinophils) system which ge nerated this result tra nsmitted reference range : <=4.0. The reference r jillian was not used to int erpret this result as normal/abnormal . [place] 036773-03-08 23:51:00 Test Item Value Reference Range Interpretation Comments Basophils (test code = 0.7 See_Comment [Aut omated message] The Basophils) system which ge nerated this result tra nsmitted reference range : <=1.0. The reference r jillian was not used to int erpret this result as normal/abnormal . [place] 036773-03-08 23:51:00 Test Item Value Reference Range Interpretation Comments Neutrophils # (test code = Neutrophils 6.1 1.5-8.1 #) [facility] CenterFlskpzbUHMNVUSAHI0398-05-24 23:51:00 Test Item Value Reference Range Interpretation Comments Lymphocytes # (test code = Lymphocytes 1.3 1.0-5.5 #) [place] 036773-03-08 23:51:00 Test Item Value Reference Range Interpretation Comments Monocytes # (test code 0.6 See_Comment [Aut omated message] The = Monocytes #) system which generated this result tra nsmitted reference range : <=0.8. The reference r jillian was not used to int erpret this result as normal/abnormal . [facility] CenterUmjyceqZTMXYEJHYI8680-47-45 23:51:00 Test Item Value Reference Range Interpretation Comments Eosinophils # (test code 0.2 See_Comment [A utomated message] The = Eosinophils #) system whic h generated this result tra nsmitted reference range : <=0.5. The reference r jillian was not used to int erpret this result as normal/abnormal . [place] 036773-03-08 23:51:00 Test Item Value Reference Range Interpretation Comments Basophils # (test code 0.1 See_Comment [Aut omated message] The = Basophils #) system which generated this result tra nsmitted reference range : <=0.2. The reference r jillian was not used to int erpret this result as normal/abnormal . [facility] CenterVbvzmyoOZCPMVWZJV9234-06-74 23:51:00 Test Item Value Reference Range Interpretation Comments Macrocyte (test code = 1+ *ABN*(12/04/22 5:51 Macrocyte) PM) [place] [address]-03-08 23:51:00 Test Item Value Reference Range Interpretation Comments PT (test code = PT) 14.3 s 12.0-14.7 [place] [address]-03-08 23:51:00 Test Item Value Reference Range Interpretation Comments INR (test code = INR) 1.11 1 0.85-1.17 [place] [address]-03-08 23:51:00 Test Item Value Reference Range Interpretation Comments PTT (test code = PTT) 32.3 s 22.9-35.8 [place] 036773-03-08 23:51:00 Test Item Value Reference Range Interpretation Comments Segs (test code = Segs) 74.5 45.0-75.0 [place] [address]-03-08 23:51:00 Test Item Value Reference Range Interpretation Comments Lymphocytes (test code = Lymphocytes) 15.6 20.0-40.0 [place] [address]-03-08 23:51:00 Test Item Value Reference Range Interpretation Comments Monocytes (test code = Monocytes) 6.9 2.0-12.0 [place] [address]-03-08 23:51:00 Test Item Value Reference Range Interpretation Comments Eosinophils (test code = 2.3 See_Comment [A utomated message] The Eosinophils) system which ge nerated this result tra nsmitted reference range : <=4.0. The reference r jillian was not used to int erpret this result as normal/abnormal . [place] 036773-03-08 23:51:00 Test Item Value Reference Range Interpretation Comments Basophils (test code = 0.7 See_Comment [Aut omated message] The Basophils) system which ge nerated this result tra nsmitted reference range : <=1.0. The reference r jillian was not used to int erpret this result as normal/abnormal . [facility] CenterEidizdvGSDBPSYTNX5786-52-67 23:51:00 Test Item Value Reference Range Interpretation Comments Neutrophils # (test code = Neutrophils 6.1 1.5-8.1 #) [place] 036773-03-08 23:51:00 Test Item Value Reference Range Interpretation Comments Lymphocytes # (test code = Lymphocytes 1.3 1.0-5.5 #) [place] [address]-03-08 23:51:00 Test Item Value Reference Range Interpretation Comments Monocytes # (test code 0.6 See_Comment [Aut omated message] The = Monocytes #) system which generated this result tra nsmitted reference range : <=0.8. The reference r jillian was not used to int erpret this result as normal/abnormal . [place] 036773-03-08 23:51:00 Test Item Value Reference Range Interpretation Comments Eosinophils # (test code 0.2 See_Comment [A utomated message] The = Eosinophils #) system whic h generated this result tra nsmitted reference range : <=0.5. The reference r jillian was not used to int erpret this result as normal/abnormal . [facility] CenterGgphfrnWOAWXVUYIR1972-44-75 23:51:00 Test Item Value Reference Range Interpretation Comments Basophils # (test code 0.1 See_Comment [Aut omated message] The = Basophils #) system which generated this result tra nsmitted reference range : <=0.2. The reference r jillian was not used to int erpret this result as normal/abnormal . [facility] CenterOcyxmvxYABOCSGDLS1928-37-85 23:51:00 Test Item Value Reference Range Interpretation Comments Macrocyte (test code = 1+ *ABN*(12/04/22 5:51 Macrocyte) PM) [facility]AwnpwmuDFUUGWLLJI6768-10-52 15:58:00 Test Item Value Reference Range Interpretation Comments Hep Bs Ag (test code Negative *NA*(12/04/22 = Hep Bs Ag) 9:58 AM) [facility] TexasUmmrhcoKNXLIBSUPD2373-52-05 15:58:00 Test Item Value Reference Range Interpretation Comments Hep Bs Ag (test code Negative *NA*(12/04/22 = Hep Bs Ag) 9:58 AM) [facility]HcsuzwrTEZYHZFWLS6818-78-12 15:58:00 Test Item Value Reference Range Interpretation Comments Hep Bs Ag (test code Negative *NA*(12/04/22 = Hep Bs Ag) 9:58 AM) [facility] TexasFbogdbnCSMRWOSLAS3842-68-53 15:58:00 Test Item Value Reference Range Interpretation Comments Hep Bs Ag (test code Negative *NA*(12/04/22 = Hep Bs Ag) 9:58 AM) [facility]OieyqmhDDYNZAGZII9021-73-04 15:58:00 Test Item Value Reference Range Interpretation Comments Hep Bs Ag (test code Negative *NA*(12/04/22 = Hep Bs Ag) 9:58 AM) [facility] TexasNbdkbjtNZXXYKPFUR6624-17-24 15:58:00 Test Item Value Reference Range Interpretation Comments Hep Bs Ag (test code Negative *NA*(12/04/22 = Hep Bs Ag) 9:58 AM) [facility]wETTPDBTKFA6875-27-37 15:58:00 Test Item Value Reference Range Interpretation Comments Hep Bs Ag (test code Negative *NA*(12/04/22 = Hep Bs Ag) 9:58 AM) [facility]336[facility] 15:58:00 Test Item Value Reference Range Interpretation Comments Hep Bs Ag (test code Negative *NA*(12/04/22 = Hep Bs Ag) 9:58 AM) [facility] [id number] 15:42:00 Test Item Value Reference Range Interpretation Comments ABO/Rh (test code = ABO/Rh) O POS [facility] [id number] 15:42:00 Test Item Value Reference Range Interpretation Comments Antibody Scrn (test Negative (12/03/22 9:42 code = Antibody Scrn) AM) [facility] [id number] 15:42:00 Test Item Value Reference Range Interpretation Comments ABO/Rh (test code = ABO/Rh) O POS [facility] [id number] 15:42:00 Test Item Value Reference Range Interpretation Comments Antibody Scrn (test Negative (12/03/22 9:42 code = Antibody Scrn) AM) [facility] [id number] 15:42:00 Test Item Value Reference Range Interpretation Comments ABO/Rh (test code = ABO/Rh) O POS [facility] [id number] 15:42:00 Test Item Value Reference Range Interpretation Comments Antibody Scrn (test Negative (12/03/22 9:42 code = Antibody Scrn) AM) [facility] [id number] 15:42:00 Test Item Value Reference Range Interpretation Comments ABO/Rh (test code = ABO/Rh) O POS [facility] [id number] 15:42:00 Test Item Value Reference Range Interpretation Comments Antibody Scrn (test Negative (12/03/22 9:42 code = Antibody Scrn) AM) [facility]zemihfTKPHWT4224-52-17 15:21:12 Test Item Value Reference Range Interpretation [...] vein outflow.Valentin Evans MD On 12/03/2022 09:19:45; [id number] [facility]PebviqzJYADPM0309-10-32 15:21:12 Test Item Value Reference Range Interpretation [...] vein outflow.Valentin Evans MD On 12/03/2022 09:19:45; [id number] [facility] HospitalFwkjddwKQXRXE0899-51-06 15:21:12 Test Item Value Reference Range Interpretation [...] vein outflow.Valentin Evans MD On 12/03/2022 09:19:45; [id number] [facility] HospitalNmbpkfzOCRAOW9974-54-46 15:21:12 Test Item Value Reference Range Interpretation [...] vein outflow.Valentin Evans MD On 12/03/2022 09:19:45; [id number] [facility] HospitalIgiwgyzVUOOWR5572-49-44 14:03:57 Test Item Value Reference Range Interpretation [...] process. Nigel Tsai MD On 12/03/2022 08:03:26; [id number] [facility]ieKcxywkeZHKLXB6900-10-00 14:03:57 Test Item Value Reference Range Interpretation [...] process. Nigel Tsai MD On 12/03/2022 08:03:26; [id number] [facility]ieEbixydgSXGWAM0251-85-15 14:03:57 Test Item Value Reference Range Interpretation [...] process. Nigel Tsai MD On 12/03/2022 08:03:26; [id number] [facility]udaDmqlxwyWZMWZZ8479-41-49 14:03:57 Test Item Value Reference Range Interpretation [...] process. Nigel Tsai MD On 12/03/2022 08:03:26; [id number] [facility] [id number] 13:03:00 Test Item Value Reference Range Interpretation Comments Total Protein (test code = Total 6.7 6.4-8.4 Protein) [facility] [id number] 13:03:00 Test Item Value Reference Range Interpretation Comments Albumin Lvl (test code = Albumin Lvl) 3.0 3.5-5.0 [facility] [id number] 13:03:00 Test Item Value Reference Range Interpretation Comments ALT (test code = ALT) 10 See_Comment [Auto mated message] The system which [employer] nerated this result transmit cruz reference range : <=65. The reference range was not used to interpr et this result as gee l/abnormal. [facility] [id number] 13:03:00 Test Item Value Reference Range Interpretation Comments AST (test code = AST) 5 See_Comment [Auto mated message] The system which [employer] nerated this result transmit cruz reference range : <=37. The reference range was not used to interpr et this result as gee l/abnormal. [facility] [id number] 13:03:00 Test Item Value Reference Range Interpretation Comments Alk Phos (test code = Alk Phos) 77 39-136 [place] 553953-03-07 13:03:00 Test Item Value Reference Range Interpretation Comments Bili Total (test code = Bili Total) 0.4 0.2-1.3 [place] [address]-03-07 13:03:00 Test Item Value Reference Range Interpretation Comments B/C Ratio (test code = B/C Ratio) 4 1 6-25 [place] [address]-03-07 13:03:00 Test Item Value Reference Range Interpretation Comments Globulin (test code = Globulin) 3.7 2.7-4.2 [place] [address]-03-07 13:03:00 Test Item Value Reference Range Interpretation Comments A/G Ratio (test code = A/G Ratio) 0.8 1 0.7-1.6 [place] [address]-03-07 13:03:00 Test Item Value Reference Range Interpretation Comments PT (test code = PT) 15.0 s 12.0-14.7 [place] [address]-03-07 13:03:00 Test Item Value Reference Range Interpretation Comments INR (test code = INR) 1.18 1 0.85-1.17 [place] [address]-03-07 13:03:00 Test Item Value Reference Range Interpretation Comments PTT (test code = PTT) 31.8 s 22.9-35.8 [place] [address]-03-07 13:03:00 Test Item Value Reference Range Interpretation Comments Eosinophils (test code = 2.4 See_Comment [A utomated message] The Eosinophils) system which ge nerated this result tra nsmitted reference range : <=4.0. The reference r jillian was not used to int erpret this result as normal/abnormal . [place] [address]-03-07 13:03:00 Test Item Value Reference Range Interpretation Comments Eosinophils # (test code 0.2 See_Comment [A utomated message] The = Eosinophils #) system whic h generated this result tra nsmitted reference range : <=0.5. The reference r jillian was not used to int erpret this result as normal/abnormal . [place] [address]-03-07 13:03:00 Test Item Value Reference Range Interpretation Comments Basophils # (test code 0.1 See_Comment [Aut omated message] The = Basophils #) system which generated this result tra nsmitted reference range : <=0.2. The reference r jillian was not used to int erpret this result as normal/abnormal . [facility]2023-03-07 13:03:00 Test Item Value Reference Range Interpretation Comments Total Protein (test code = Total 6.7 6.4-8.4 Protein) [place] 553953-03-07 13:03:00 Test Item Value Reference Range Interpretation Comments Albumin Lvl (test code = Albumin Lvl) 3.0 3.5-5.0 [place] 553953-03-07 13:03:00 Test Item Value Reference Range Interpretation Comments ALT (test code = ALT) 10 See_Comment [Auto mated message] The system which ge nerated this result transmit cruz reference range : <=65. The reference range was not used to interpr et this result as gee l/abnormal. [place] 553953-03-07 13:03:00 Test Item Value Reference Range Interpretation Comments AST (test code = AST) 5 See_Comment [Auto mated message] The system which ge nerated this result transmit cruz reference range : <=37. The reference range was not used to interpr et this result as gee l/abnormal. [facility]2023-03-07 13:03:00 Test Item Value Reference Range Interpretation Comments Alk Phos (test code = Alk Phos) 77 39-136 [facility]2023-03-07 13:03:00 Test Item Value Reference Range Interpretation Comments Bili Total (test code = Bili Total) 0.4 0.2-1.3 [place] 553953-03-07 13:03:00 Test Item Value Reference Range Interpretation Comments B/C Ratio (test code = B/C Ratio) 4 1 6-[address] [facility] [address] [id number] 13:03:00 Test Item Value Reference Range Interpretation Comments Globulin (test code = Globulin) 3.7 2.7-4.2 [place] 553953-03-07 13:03:00 Test Item Value Reference Range Interpretation Comments A/G Ratio (test code = A/G Ratio) 0.8 1 0.7-1.6 [place] 036773-03-07 13:03:00 Test Item Value Reference Range Interpretation Comments PT (test code = PT) 15.0 s 12.0-14.7 [place] 036773-03-07 13:03:00 Test Item Value Reference Range Interpretation Comments INR (test code = INR) 1.18 1 0.85-1.17 [place] [address]-03-07 13:03:00 Test Item Value Reference Range Interpretation Comments PTT (test code = PTT) 31.8 s 22.9-35.8 [place] [address]-03-07 13:03:00 Test Item Value Reference Range Interpretation Comments Eosinophils (test code = 2.4 See_Comment [A utomated message] The Eosinophils) system which ge nerated this result tra nsmitted reference range : <=4.0. The reference r jillian was not used to int erpret this result as normal/abnormal . [place] [address]-03-07 13:03:00 Test Item Value Reference Range Interpretation Comments Eosinophils # (test code 0.2 See_Comment [A utomated message] The = Eosinophils #) system whic h generated this result tra nsmitted reference range : <=0.5. The reference r jillian was not used to int erpret this result as normal/abnormal . [place] 036773-03-07 13:03:00 Test Item Value Reference Range Interpretation Comments Basophils # (test code 0.1 See_Comment [Aut omated message] The = Basophils #) system which generated this result tra nsmitted reference range : <=0.2. The reference r jillian was not used to int erpret this result as normal/abnormal . [facility] [id number] 13:03:00 Test Item Value Reference Range Interpretation Comments Total Protein (test code = Total 6.7 6.4-8.4 Protein) [facility] [id number] 13:03:00 Test Item Value Reference Range Interpretation Comments Albumin Lvl (test code = Albumin Lvl) 3.0 3.5-5.0 [facility] DRVJY7405-06-61 13:03:00 Test Item Value Reference Range Interpretation Comments ALT (test code = ALT) 10 See_Comment [Auto mated message] The system which ge nerated this result transmit cruz reference range : <=65. The reference range was not used to interpr et this result as gee l/abnormal. [facility] [id number] 13:03:00 Test Item Value Reference Range Interpretation Comments AST (test code = AST) 5 See_Comment [Auto mated message] The system which ge nerated this result transmit cruz reference range : <=37. The reference range was not used to interpr et this result as gee l/abnormal. [facility] [id number] 13:03:00 Test Item Value Reference Range Interpretation Comments Alk Phos (test code = Alk Phos) 77 39-136 [facility] CenterPoikosJOANNE [facility] [address]506DYUVN9867-22-01 13:03:00 Test Item Value Reference Range Interpretation Comments Bili Total (test code = Bili Total) 0.4 0.2-1.3 [place] [address]-03-07 13:03:00 Test Item Value Reference Range Interpretation Comments B/C Ratio (test code = B/C Ratio) 4 1 6-[address] [facility] [address] [id number] 13:03:00 Test Item Value Reference Range Interpretation Comments Globulin (test code = Globulin) 3.7 2.7-4.2 [facility] [id number] 13:03:00 Test Item Value Reference Range Interpretation Comments A/G Ratio (test code = A/G Ratio) 0.8 1 0.7-1.6 [place] [address]-03-07 13:03:00 Test Item Value Reference Range Interpretation Comments PT (test code = PT) 15.0 s 12.0-14.7 [place] 036773-03-07 13:03:00 Test Item Value Reference Range Interpretation Comments INR (test code = INR) 1.18 1 0.85-1.17 [place] [address]-03-07 13:03:00 Test Item Value Reference Range Interpretation Comments PTT (test code = PTT) 31.8 s 22.9-35.8 [place] [address]-03-07 13:03:00 Test Item Value Reference Range Interpretation Comments Eosinophils (test code = 2.4 See_Comment [A utomated message] The Eosinophils) system which ge nerated this result tra nsmitted reference range : <=4.0. The reference r jillian was not used to int erpret this result as normal/abnormal . [facility] CenterEhiwgzgXHOKAQOBPX9524-71-15 13:03:00 Test Item Value Reference Range Interpretation Comments Eosinophils # (test code 0.2 See_Comment [A utomated message] The = Eosinophils #) system whic h generated this result tra nsmitted reference range : <=0.5. The reference r jillian was not used to int erpret this result as normal/abnormal . [facility] CenterQbmeqwzPLNLNRZBCK7282-13-82 13:03:00 Test Item Value Reference Range Interpretation Comments Basophils # (test code 0.1 See_Comment [Aut omated message] The = Basophils #) system which generated this result tra nsmitted reference range : <=0.2. The reference r jillian was not used to int erpret this result as normal/abnormal . [facility] [id number] 13:03:00 Test Item Value Reference Range Interpretation Comments Total Protein (test code = Total 6.7 6.4-8.4 Protein) [facility] [id number] 13:03:00 Test Item Value Reference Range Interpretation Comments Albumin Lvl (test code = Albumin Lvl) 3.0 3.5-5.0 [facility] [employer]2023-03-07 13:03:00 Test Item Value Reference Range Interpretation Comments ALT (test code = ALT) 10 See_Comment [Auto mated message] The system which ge nerated this result transmit cruz reference range : <=65. The reference range was not used to interpr et this result as gee l/abnormal. [facility] [id number] 13:03:00 Test Item Value Reference Range Interpretation Comments AST (test code = AST) 5 See_Comment [Auto mated message] The system which ge nerated this result transmit cruz reference range : <=37. The reference range was not used to interpr et this result as gee l/abnormal. [facility] [employer]2023-03-07 13:03:00 Test Item Value Reference Range Interpretation Comments Alk Phos (test code = Alk Phos) 77 39-136 [facility] [id number] 13:03:00 Test Item Value Reference Range Interpretation Comments Bili Total (test code = Bili Total) 0.4 0.2-1.3 [facility] [employer]2023-03-07 13:03:00 Test Item Value Reference Range Interpretation Comments B/C Ratio (test code = B/C Ratio) 4 1 6-25 [facility] [id number] 13:03:00 Test Item Value Reference Range Interpretation Comments Globulin (test code = Globulin) 3.7 2.7-4.[address] [facility] [address] [id number] 13:03:00 Test Item Value Reference Range Interpretation Comments A/G Ratio (test code = A/G Ratio) 0.8 1 0.7-1.6 [facility]ZzlxbgiHPUTIDVISI8027-83-55 13:03:00 Test Item Value Reference Range Interpretation Comments PT (test code = PT) 15.0 s 12.0-14.7 [facility] CenterLpmhfsdIQVJAGUNGK7733-39-47 13:03:00 Test Item Value Reference Range Interpretation Comments INR (test code = INR) 1.18 1 0.85-1.17 [place] 036773-03-07 13:03:00 Test Item Value Reference Range Interpretation Comments PTT (test code = PTT) 31.8 s 22.9-35.8 [place] 036773-03-07 13:03:00 Test Item Value Reference Range Interpretation Comments Eosinophils (test code = 2.4 See_Comment [A utomated message] The Eosinophils) system which ge nerated this result tra nsmitted reference range : <=4.0. The reference r jillian was not used to int erpret this result as normal/abnormal . [facility] HospitalYpjvbwbDFOXTUVYUI4807-29-02 13:03:00 Test Item Value Reference Range Interpretation Comments Eosinophils # (test code 0.2 See_Comment [A utomated message] The = Eosinophils #) system whic h generated this result tra nsmitted reference range : <=0.5. The reference r jillian was not used to int erpret this result as normal/abnormal . [facility] HospitalOutrtxrBWBLXPJBGW5003-05-59 13:03:00 Test Item Value Reference Range Interpretation Comments Basophils # (test code 0.1 See_Comment [Aut omated message] The = Basophils #) system which generated this result tra nsmitted reference range : <=0.2. The reference r jillian was not used to int erpret this result as normal/abnormal . [facility] METABOLIC PANEL (08254)2022-12-02 19:34:37 Test Item Value Reference Range Interpretation Comments NA (test code = 136 mmol/L 135-145 1653411983) K (test code = 4.6 mmol/L 3.5-5.0 8603138025) CL (test code = 101 mmol/L 98-108 8433492638) CO2 TOTAL (test code = 25 mmol/L 23-31 7571584307) AGAP (test code = 10 2-16 0011787652) BUN (test code = 33 mg/dL 7-23 H 8198861449) GLUCOSE (test code = 83 mg/dL 70-110 5501220108) CREATININE (test code = 8.36 mg/dL 0.60-1.25 H 3968165834) TOTAL BILI (test code = 0.6 mg/dL 0.1-1.7 1368972370) CALCIUM (test code = 8.2 mg/dL 8.6-10.6 L 2357091059) T PROTEIN (test code = 7.7 g/dL 6.3-8.2 6748850564) ALBUMIN (test code = 4.3 g/dL 3.5-5.0 9752524142) ALK PHOS (test code = 80 U/L 34-122 9034305618) ALTv (test code = 12 U/L 5-50 1742-6) AST(SGOT) (test code = 16 U/L 13-40 7619572942) eGFR (test code = 6.6 mL/min/1.73m2 9254541799) FILI (test code = FILI) Association of [...] tests). Lab Interpretation Abnormal (test code = 17033-7) [facility] THRMPLAS [id number] 19:16:11 Test Item Value Reference Range Interpretation Comments APTT Patient (test 28 See_Comment [Automat ed code = 3173-2) message] The system which generated this result transmitted reference range : 23 - 38 Seconds . The reference range was not used to interpr et this result as normal/abnormal . FILI (test code = FILI) The [facility] patient population mean normal value for aPTT is 30 seconds. Lab Interpretation Normal (test code = 63127-1) [facility] StationPROTHROMBIN TIME / [id number] 19:14:13 Test Item Value Reference Range Interpretation [...] tions. Lab Interpretation (test Normal code = 70448-2) [facility] StationCB WITH [id number] 19:07:14 Test Item Value Reference Range Interpretation Comments WBC (test code = 7.95 See_Comment [Automated 8690-2) message] The sy stem which generated this [...] RDW-SD (test code = 50.5 fL 38.5-51.6 98021-3) RDW-CV (test code = 13.7 % 12.1-15.4 788-0) PLT (test code = 218 See_Comment [Automated 777-3) message] The sy stem which generated this result transmitted reference range : 150 - 328 10*3/ ?L. The reference r jillian was not used to interpret this result as normal/abnormal . MPV (test code = 10.1 fL 9.8-13.0 20227-5) NRBC/100 WBC (test 0.0 See_Comment [Automat ed code = 0969574625) message] The system which generated this result transmitted reference range : 0.0 - 10.0 /100 WBCs. The refer ence range was not u sed to interpret th is result as normal/abnormal . NRBC x10^3 (test code See_Comment [Auto mated = 3310590026) message] The s ystem which generated this result transmitted reference range : 10*3/?L. The reference range was not used to interpret this result as normal/abnormal . GRAN MAT (NEUT) % 69.1 % (test code = 770-8) IMM GRAN % (test code 0.40 % = 4534204846) LYMPH % (test code = 20.0 % 736-9) MONO % (test code = 7.8 % 5905-5) EOS % (test code = 1.9 % 713-8) BASO % (test code = 0.8 % 706-2) GRAN MAT x10^3(ANC) 5.50 10*3/uL 1.99-6.95 (test code = 6580104403) IMM GRAN x10^3 (test 0.03 10*3/uL 0.00-0.06 code = 8590952618) LYMPH x10^3 (test code 1.59 10*3/uL 1.09-3.23 = 731-0) MONO x10^3 (test code 0.62 10*3/uL 0.36-1.02 = 742-7) EOS x10^3 (test code = 0.15 10*3/uL 0.06-0.53 711-2) BASO x10^3 (test code 0.06 10*3/uL 0.01-0.09 = 704-7) Lab Interpretation Abnormal (test code = 18575-4) [facility] StationCHEM [id number] 19:17:00 Test Item Value Reference Range Interpretation Comments Glucose Lvl (test code = Glucose Lvl) 87 70-99 [facility]2019-11-21 19:17:00 Test Item Value Reference Range Interpretation Comments BUN (test code = BUN) 46 7-22 [facility]2019-11-21 19:17:00 Test Item Value Reference Range Interpretation Comments Creatinine Lvl (test code = Creatinine 11.10 0.50-1.40 Lvl) [facility]2019-11-21 19:17:00 Test Item Value Reference Range Interpretation Comments Sodium Lvl (test code = Sodium Lvl) 137 135-145 [facility]2019-11-21 19:17:00 Test Item Value Reference Range Interpretation Comments Potassium Lvl (test code = Potassium 3.8 3.5-5.1 Lvl) [facility]2019-11-21 19:17:00 Test Item Value Reference Range Interpretation Comments Chloride Lvl (test code = Chloride Lvl) 100 95-109 [facility]2019-11-21 19:17:00 Test Item Value Reference Range Interpretation Comments CO2 (test code = CO2) 27 24-32 [facility]2019-11-21 19:17:00 Test Item Value Reference Range Interpretation Comments Calcium Lvl (test code = Calcium Lvl) 8.9 8.5-10.5 [facility]2019-11-21 19:17:00 Test Item Value Reference Range Interpretation Comments Total Protein (test code = Total 8.4 6.4-8.4 Protein) [facility]2019-11-21 19:17:00 Test Item Value Reference Range Interpretation Comments Albumin Lvl (test code = Albumin Lvl) 3.7 3.5-5.0 [facility]2019-11-21 19:17:00 Test Item Value Reference Range Interpretation Comments ALT (test code = ALT) 15 See_Comment [Auto mated message] The system which ge nerated this result transmit cruz reference range : <=65. The reference range was not used to interpr et this result as gee l/abnormal. [facility]2019-11-21 19:17:00 Test Item Value Reference Range Interpretation Comments AST (test code = AST) 11 See_Comment [Auto mated message] The system which ge nerated this result transmit cruz reference range : <=37. The reference range was not used to interpr et this result as gee l/abnormal. [facility]2019-11-21 19:17:00 Test Item Value Reference Range Interpretation Comments Alk Phos (test code = Alk Phos) 80 39-136 [facility]2019-11-21 19:17:00 Test Item Value Reference Range Interpretation Comments Bili Total (test code = Bili Total) 0.4 0.2-1.3 [facility]2019-11-21 19:17:00 Test Item Value Reference Range Interpretation Comments eGFR (test code = eGFR) 5 [facility]2019-11-21 19:17:00 Test Item Value Reference Range Interpretation Comments AGAP (test code = AGAP) 13.8 10.0-20.0 [facility]2019-11-21 19:17:00 Test Item Value Reference Range Interpretation Comments B/C Ratio (test code = B/C Ratio) 4 1 6-25 [place] 604389-11-21 19:17:00 Test Item Value Reference Range Interpretation Comments Globulin (test code = Globulin) 4.7 2.7-4.2 [facility] [id number] 19:17:00 Test Item Value Reference Range Interpretation Comments A/G Ratio (test code = A/G Ratio) 0.8 1 0.7-1.6 [facility]UkxvpvnRCIDOFVFVA9263-23-33 19:17:00 Test Item Value Reference Range Interpretation Comments WBC (test code = WBC) 7.9 3.7-10.4 [facility] CenterUrcytukDSGQAYQMBT3234-02-31 19:17:00 Test Item Value Reference Range Interpretation Comments RBC (test code = RBC) 3.90 4.70-6.10 [facility] CenterIixwnzfGGBAHRKZGG8993-08-95 19:17:00 Test Item Value Reference Range Interpretation Comments Hgb (test code = Hgb) 13.3 14.0-18.0 [facility] CenterSruwihaAEAMWQIPGA2640-35-54 19:17:00 Test Item Value Reference Range Interpretation Comments Hct (test code = Hct) 39.0 42.0-54.0 [facility] CenterVxhgytlQVKHVICNYB6827-02-50 19:17:00 Test Item Value Reference Range Interpretation Comments MCV (test code = MCV) 99.9 80.0-94.0 [facility] CenterUzjkwdgTNQBSZTICS7071-02-67 19:17:00 Test Item Value Reference Range Interpretation Comments MCH (test code = MCH) 34.2 pg 27.0-31.0 [facility] CenterPnhnccbGCCIPTEQFA4085-19-02 19:17:00 Test Item Value Reference Range Interpretation Comments MCHC (test code = MCHC) 34.2 32.0-36.0 [facility] CenterFkkpixsVAUUKKTHDW5143-13-05 19:17:00 Test Item Value Reference Range Interpretation Comments RDW (test code = RDW) 14.1 11.5-14.5 [facility]QtabqjtTIRDDKMGJS1657-30-51 19:17:00 Test Item Value Reference Range Interpretation Comments Platelet (test code = Platelet) 251 710-450 [facility] CenterBreqcdtJEEPNPRGLR8772-55-22 19:17:00 Test Item Value Reference Range Interpretation Comments MPV (test code = MPV) 8.8 7.4-10.4 [facility] CenterEwdfbwcCJZAWGJPMO2008-25-93 19:17:00 Test Item Value Reference Range Interpretation Comments Segs (test code = Segs) 69.6 45.0-75.0 [facility] CenterLfedyxgUOZQHFJOOX4772-67-30 19:17:00 Test Item Value Reference Range Interpretation Comments Lymphocytes (test code = Lymphocytes) 21.8 20.0-40.0 [facility] CenterZkhltpzVYIRWZJWTD2262-92-54 19:17:00 Test Item Value Reference Range Interpretation Comments Monocytes (test code = Monocytes) 6.8 2.0-12.0 [facility] CenterTaplbneBIASMPHCEC0330-75-31 19:17:00 Test Item Value Reference Range Interpretation Comments Eosinophils (test code = 1.2 See_Comment [A utomated message] The Eosinophils) system which ge nerated this result tra nsmitted reference range : <=4.0. The reference r jillian was not used to int erpret this result as normal/abnormal . [facility] CenterLpwzeznQAFMDCTJJR1354-04-21 19:17:00 Test Item Value Reference Range Interpretation Comments Basophils (test code = 0.6 See_Comment [Aut omated message] The Basophils) system which ge nerated this result tra nsmitted reference range : <=1.0. The reference r jillian was not used to int erpret this result as normal/abnormal . [facility] CenterHpfijdhJQGTRTORVD5097-77-05 19:17:00 Test Item Value Reference Range Interpretation Comments Neutrophils # (test code = Neutrophils 5.5 1.5-8.1 #) [facility] CenterWhcvlcpCNDFNFNNOG1369-34-42 19:17:00 Test Item Value Reference Range Interpretation Comments Lymphocytes # (test code = Lymphocytes 1.7 1.0-5.5 #) [facility] CenterQjevpcwYJABZXVBNM0121-37-50 19:17:00 Test Item Value Reference Range Interpretation Comments Monocytes # (test code 0.5 See_Comment [Aut omated message] The = Monocytes #) system which generated this result tra nsmitted reference range : <=0.8. The reference r jillian was not used to int erpret this result as normal/abnormal . [facility] CenterHeuesyjRYBCGPQAZN2314-27-58 19:17:00 Test Item Value Reference Range Interpretation Comments Eosinophils # (test code 0.1 See_Comment [A utomated message] The = Eosinophils #) system wh h generated this result tra nsmitted reference range : <=0.5. The reference r jillian was not used to int erpret this result as normal/abnormal . [place] 221689-11-21 19:17:00 Test Item Value Reference Range Interpretation Comments Acetaminoph Lvl (test code (08/19/19 1:17 PM) 10-20 = Acetaminoph Lvl) [place] 221689-11-21 19:17:00 Test Item Value Reference Range Interpretation Comments Ethanol Lvl (test code = Ethanol Lvl) no gt [place] [id number] 19:17:00 Test Item Value Reference Range Interpretation Comments Etoh (%) (test code = Etoh (%)) no gt [place] [id number] 19:17:00 Test Item Value Reference Range Interpretation Comments Salicylate Lvl (test no gt See_Comment [Autom ated message] The code = Salicylate Lvl) syste m which generated this result tra nsmitted reference range : <=30.0. The reference r jillian was not used to int erpret this result as normal/abnormal . [facility]2019-11-21 19:17:00 Test Item Value Reference Range Interpretation Comments Glucose Lvl (test code = Glucose Lvl) 87 70-99 [facility]2019-11-21 19:17:00 Test Item Value Reference Range Interpretation Comments BUN (test code = BUN) 46 7-22 [facility]2019-11-21 19:17:00 Test Item Value Reference Range Interpretation Comments Creatinine Lvl (test code = Creatinine 11.10 0.50-1.40 Lvl) [facility]2019-11-21 19:17:00 Test Item Value Reference Range Interpretation Comments Sodium Lvl (test code = Sodium Lvl) 137 135-145 [facility]2019-11-21 19:17:00 Test Item Value Reference Range Interpretation Comments Potassium Lvl (test code = Potassium 3.8 3.5-5.1 Lvl) [facility]2019-11-21 19:17:00 Test Item Value Reference Range Interpretation Comments Chloride Lvl (test code = Chloride Lvl) 100 95-109 [facility]2019-11-21 19:17:00 Test Item Value Reference Range Interpretation Comments CO2 (test code = CO2) 27 24-32 [facility]2019-11-21 19:17:00 Test Item Value Reference Range Interpretation Comments Calcium Lvl (test code = Calcium Lvl) 8.9 8.5-10.5 [facility]2019-11-21 19:17:00 Test Item Value Reference Range Interpretation Comments Total Protein (test code = Total 8.4 6.4-8.4 Protein) [facility]2019-11-21 19:17:00 Test Item Value Reference Range Interpretation Comments Albumin Lvl (test code = Albumin Lvl) 3.7 3.5-5.0 [facility]2019-11-21 19:17:00 Test Item Value Reference Range Interpretation Comments ALT (test code = ALT) 15 See_Comment [Auto mated message] The system which ge nerated this result transmit cruz reference range : <=65. The reference range was not used to interpr et this result as gee l/abnormal. [facility]2019-11-21 19:17:00 Test Item Value Reference Range Interpretation Comments AST (test code = AST) 11 See_Comment [Auto mated message] The system which ge nerated this result transmit cruz reference range : <=37. The reference range was not used to interpr et this result as gee l/abnormal. [facility]2019-11-21 19:17:00 Test Item Value Reference Range Interpretation Comments Alk Phos (test code = Alk Phos) 80 39-136 [facility]2019-11-21 19:17:00 Test Item Value Reference Range Interpretation Comments Bili Total (test code = Bili Total) 0.4 0.2-1.3 [facility]2019-11-21 19:17:00 Test Item Value Reference Range Interpretation Comments eGFR (test code = eGFR) 5 [facility]2019-11-21 19:17:00 Test Item Value Reference Range Interpretation Comments AGAP (test code = AGAP) 13.8 10.0-20.0 [place] [id number] 19:17:00 Test Item Value Reference Range Interpretation Comments B/C Ratio (test code = B/C Ratio) 4 1 6-25 [facility]2019-11-21 19:17:00 Test Item Value Reference Range Interpretation Comments Globulin (test code = Globulin) 4.7 2.7-4.2 [facility]2019-11-21 19:17:00 Test Item Value Reference Range Interpretation Comments A/G Ratio (test code = A/G Ratio) 0.8 1 0.7-1.6 [facility] CenterPbrfqggTVNHPKFOAB0594-35-47 19:17:00 Test Item Value Reference Range Interpretation Comments WBC (test code = WBC) 7.9 3.7-10.4 [facility] CenterWihdbjhXCLUJZPAYX4737-64-33 19:17:00 Test Item Value Reference Range Interpretation Comments RBC (test code = RBC) 3.90 4.70-6.10 [facility] CenterBgpinlhIJXPXRJOLE9313-19-82 19:17:00 Test Item Value Reference Range Interpretation Comments Hgb (test code = Hgb) 13.3 14.0-18.0 [facility] CenterSkiiuliYTUGJRLUAG2771-72-57 19:17:00 Test Item Value Reference Range Interpretation Comments Hct (test code = Hct) 39.0 42.0-54.0 [facility] CenterNoshtacSECXKLKCTZ9299-70-50 19:17:00 Test Item Value Reference Range Interpretation Comments MCV (test code = MCV) 99.9 80.0-94.0 [facility] CenterMrktbhzSMBNIAYTKJ6243-50-42 19:17:00 Test Item Value Reference Range Interpretation Comments MCH (test code = MCH) 34.2 pg 27.0-31.0 [facility] CenterGzxqgcbPWERCPLAFX3791-85-02 19:17:00 Test Item Value Reference Range Interpretation Comments MCHC (test code = MCHC) 34.2 32.0-36.0 [facility] CenterUmlxujpVNHZJYKLGJ3608-65-89 19:17:00 Test Item Value Reference Range Interpretation Comments RDW (test code = RDW) 14.1 11.5-14.5 [facility] CenterHdrofduOHFURDFPTU0852-67-91 19:17:00 Test Item Value Reference Range Interpretation Comments Platelet (test code = Platelet) 251 133-450 [facility] CenterDecascrZFJYFTQGAO9074-90-23 19:17:00 Test Item Value Reference Range Interpretation Comments MPV (test code = MPV) 8.8 7.4-10.4 [facility] CenterRuhrbwwFZVORRBNDD4250-78-20 19:17:00 Test Item Value Reference Range Interpretation Comments Segs (test code = Segs) 69.6 45.0-75.0 [facility] CenterDzwekdaVFXQMFNAXB8276-14-04 19:17:00 Test Item Value Reference Range Interpretation Comments Lymphocytes (test code = Lymphocytes) 21.8 20.0-40.0 [facility] CenterCmwknycBCEHWKPZFQ8639-48-91 19:17:00 Test Item Value Reference Range Interpretation Comments Monocytes (test code = Monocytes) 6.8 2.0-12.0 [facility] CenterXfgwkkhMQQOWGJRXG4545-47-46 19:17:00 Test Item Value Reference Range Interpretation Comments Eosinophils (test code = 1.2 See_Comment [A utomated message] The Eosinophils) system which ge nerated this result tra nsmitted reference range : <=4.0. The reference r jillian was not used to int erpret this result as normal/abnormal . [facility] CenterJcxhdpgYZLSNBHGMR5737-37-72 19:17:00 Test Item Value Reference Range Interpretation Comments Basophils (test code = 0.6 See_Comment [Aut omated message] The Basophils) system which ge nerated this result tra nsmitted reference range : <=1.0. The reference r jillian was not used to int erpret this result as normal/abnormal . [facility] CenterSrmtmaeIFEOAFHLBN8539-77-06 19:17:00 Test Item Value Reference Range Interpretation Comments Neutrophils # (test code = Neutrophils 5.5 1.5-8.1 #) [facility] CenterEujzleaZCZWATVHPG0146-43-17 19:17:00 Test Item Value Reference Range Interpretation Comments Lymphocytes # (test code = Lymphocytes 1.7 1.0-5.5 #) [facility] CenterLrfzkhaOVXGOUSRKB7290-05-07 19:17:00 Test Item Value Reference Range Interpretation Comments Monocytes # (test code 0.5 See_Comment [Aut omated message] The = Monocytes #) system which generated this result tra nsmitted reference range : <=0.8. The reference r jillian was not used to int erpret this result as normal/abnormal . [facility] CenterUnghbrvZYKHTGQSZX5388-90-62 19:17:00 Test Item Value Reference Range Interpretation Comments Eosinophils # (test code 0.1 See_Comment [A utomated message] The = Eosinophils #) system [facility] h generated this result tra nsmitted reference range : <=0.5. The reference r jillian was not used to int erpret this result as normal/abnormal . [place] [id number] 19:17:00 Test Item Value Reference Range Interpretation Comments Acetaminoph Lvl (test code (08/19/19 1:17 PM) 10-20 = Acetaminoph Lvl) [place] 221689-11-21 19:17:00 Test Item Value Reference Range Interpretation Comments Ethanol Lvl (test code = Ethanol Lvl) no gt [place] [id number] 19:17:00 Test Item Value Reference Range Interpretation Comments Etoh (%) (test code = Etoh (%)) no gt [place] [id number] 19:17:00 Test Item Value Reference Range Interpretation Comments Salicylate Lvl (test no gt See_Comment [Autom ated message] The code = Salicylate Lvl) syste m which generated this result tra nsmitted reference range : <=30.0. The reference r jillian was not used to int erpret this result as normal/abnormal . [facility] [id number] 19:17:00 Test Item Value Reference Range Interpretation Comments Glucose Lvl (test code = Glucose Lvl) 87 70-99 [facility]2019-11-21 19:17:00 Test Item Value Reference Range Interpretation Comments BUN (test code = BUN) 46 7-22 [facility]2019-11-21 19:17:00 Test Item Value Reference Range Interpretation Comments Creatinine Lvl (test code = Creatinine 11.10 0.50-1.40 Lvl) [facility]2019-11-21 19:17:00 Test Item Value Reference Range Interpretation Comments Sodium Lvl (test code = Sodium Lvl) 137 135-145 [facility]2019-11-21 19:17:00 Test Item Value Reference Range Interpretation Comments Potassium Lvl (test code = Potassium 3.8 3.5-5.1 Lvl) [facility]2019-11-21 19:17:00 Test Item Value Reference Range Interpretation Comments Chloride Lvl (test code = Chloride Lvl) 100 95-[address] [facility] [id number] 19:17:00 Test Item Value Reference Range Interpretation Comments CO2 (test code = CO2) 27 24-32 [facility]2019-11-21 19:17:00 Test Item Value Reference Range Interpretation Comments Calcium Lvl (test code = Calcium Lvl) 8.9 8.5-10.5 [facility]2019-11-21 19:17:00 Test Item Value Reference Range Interpretation Comments Total Protein (test code = Total 8.4 6.4-8.4 Protein) [facility]2019-11-21 19:17:00 Test Item Value Reference Range Interpretation Comments Albumin Lvl (test code = Albumin Lvl) 3.7 3.5-5.0 [facility]2019-11-21 19:17:00 Test Item Value Reference Range Interpretation Comments ALT (test code = ALT) 15 See_Comment [Auto mated message] The system which ge nerated this result transmit cruz reference range : <=65. The reference range was not used to interpr et this result as gee l/abnormal. [facility]2019-11-21 19:17:00 Test Item Value Reference Range Interpretation Comments AST (test code = AST) 11 See_Comment [Auto mated message] The system which ge nerated this result transmit cruz reference range : <=37. The reference range was not used to interpr et this result as gee l/abnormal. [facility]2019-11-21 19:17:00 Test Item Value Reference Range Interpretation Comments Alk Phos (test code = Alk Phos) 80 39-136 [facility]2019-11-21 19:17:00 Test Item Value Reference Range Interpretation Comments Bili Total (test code = Bili Total) 0.4 0.2-1.3 [facility]2019-11-21 19:17:00 Test Item Value Reference Range Interpretation Comments eGFR (test code = eGFR) 5 [facility]2019-11-21 19:17:00 Test Item Value Reference Range Interpretation Comments AGAP (test code = AGAP) 13.8 10.0-20.0 [facility]2019-11-21 19:17:00 Test Item Value Reference Range Interpretation Comments B/C Ratio (test code = B/C Ratio) 4 1 6-25 [place] [id number] 19:17:00 Test Item Value Reference Range Interpretation Comments Globulin (test code = Globulin) 4.7 2.7-4.2 [facility]2019-11-21 19:17:00 Test Item Value Reference Range Interpretation Comments A/G Ratio (test code = A/G Ratio) 0.8 1 0.7-1.6 [facility] CenterVaitvkjFBJWLOEAYV5121-91-08 19:17:00 Test Item Value Reference Range Interpretation Comments WBC (test code = WBC) 7.9 3.7-10.4 [facility] CenterVhkbtzkIHDNSDQJPK3396-61-06 19:17:00 Test Item Value Reference Range Interpretation Comments RBC (test code = RBC) 3.90 4.70-6.10 [facility] CenterHldtcbmMDPAFMCKTM0474-44-54 19:17:00 Test Item Value Reference Range Interpretation Comments Hgb (test code = Hgb) 13.3 14.0-18.0 [facility] CenterGotgiziZZYLTBMICT7978-10-18 19:17:00 Test Item Value Reference Range Interpretation Comments Hct (test code = Hct) 39.0 42.0-54.0 [facility] CenterKzugdjoJHRIKSZJPI8247-02-57 19:17:00 Test Item Value Reference Range Interpretation Comments MCV (test code = MCV) 99.9 80.0-94.0 [facility] CenterImpjbhwUUAYFWYZQB0457-43-19 19:17:00 Test Item Value Reference Range Interpretation Comments MCH (test code = MCH) 34.2 pg 27.0-31.0 [facility] CenterHwldcagEJKSJMFSTF4898-41-33 19:17:00 Test Item Value Reference Range Interpretation Comments MCHC (test code = MCHC) 34.2 32.0-36.0 [facility] CenterGlpcttvTCHGFLTADV3927-95-42 19:17:00 Test Item Value Reference Range Interpretation Comments RDW (test code = RDW) 14.1 11.5-14.5 [facility] CenterTgctpfjWQUHFIPRZT8030-28-49 19:17:00 Test Item Value Reference Range Interpretation Comments Platelet (test code = Platelet) 251 133-450 [facility] CenterYtvynxfTJEEBDDUUS1369-80-37 19:17:00 Test Item Value Reference Range Interpretation Comments MPV (test code = MPV) 8.8 7.4-10.4 [facility] CenterNhiajwlBZYLDFVARF1889-02-45 19:17:00 Test Item Value Reference Range Interpretation Comments Segs (test code = Segs) 69.6 45.0-75.0 [facility] CenterYvytqtjITJZMDNVWV0465-84-99 19:17:00 Test Item Value Reference Range Interpretation Comments Lymphocytes (test code = Lymphocytes) 21.8 20.0-40.0 [facility] CenterFzxzggoCHIEKPSOED1512-93-19 19:17:00 Test Item Value Reference Range Interpretation Comments Monocytes (test code = Monocytes) 6.8 2.0-12.0 [facility] CenterGwgyruvQPFWFCWSQV8001-22-21 19:17:00 Test Item Value Reference Range Interpretation Comments Eosinophils (test code = 1.2 See_Comment [A utomated message] The Eosinophils) system which ge nerated this result tra nsmitted reference range : <=4.0. The reference r jillian was not used to int erpret this result as normal/abnormal . [facility] CenterAtrivpsHMOKRMBZML6691-30-45 19:17:00 Test Item Value Reference Range Interpretation Comments Basophils (test code = 0.6 See_Comment [Aut omated message] The Basophils) system which ge nerated this result tra nsmitted reference range : <=1.0. The reference r jillian was not used to int erpret this result as normal/abnormal . [facility] CenterIiedhagMHATQWXGQY4716-36-14 19:17:00 Test Item Value Reference Range Interpretation Comments Neutrophils # (test code = Neutrophils 5.5 1.5-8.1 #) [facility] CenterFoekizfPFIEYMWFPU8188-22-29 19:17:00 Test Item Value Reference Range Interpretation Comments Lymphocytes # (test code = Lymphocytes 1.7 1.0-5.5 #) [facility] CenterRzjnjpsDTMMBAQDCG8687-70-98 19:17:00 Test Item Value Reference Range Interpretation Comments Monocytes # (test code 0.5 See_Comment [Aut omated message] The = Monocytes #) system which generated this result tra nsmitted reference range : <=0.8. The reference r jillian was not used to int erpret this result as normal/abnormal . [facility] CenterMeepcftSUTKCBLTFI1042-15-24 19:17:00 Test Item Value Reference Range Interpretation Comments Eosinophils # (test code 0.1 See_Comment [A utomated message] The = Eosinophils #) system ic h generated this result tra nsmitted reference range : <=0.5. The reference r jillian was not used to int erpret this result as normal/abnormal . [place] [id number] 19:17:00 Test Item Value Reference Range Interpretation Comments Acetaminoph Lvl (test code (08/19/19 1:17 PM) 10-20 = Acetaminoph Lvl) [place] 221689-11-21 19:17:00 Test Item Value Reference Range Interpretation Comments Ethanol Lvl (test code = Ethanol Lvl) no gt [place] [id number] 19:17:00 Test Item Value Reference Range Interpretation Comments Etoh (%) (test code = Etoh (%)) no gt [place] [id number] 19:17:00 Test Item Value Reference Range Interpretation Comments Salicylate Lvl (test no gt See_Comment [Autom ated message] The code = Salicylate Lvl) syste m which generated this result tra nsmitted reference range : <=30.0. The reference r jillian was not used to int erpret this result as normal/abnormal . [facility] [id number] 19:17:00 Test Item Value Reference Range Interpretation Comments Glucose Lvl (test code = Glucose Lvl) 87 70-99 [facility]2019-11-21 19:17:00 Test Item Value Reference Range Interpretation Comments BUN (test code = BUN) 46 7-22 [facility]2019-11-21 19:17:00 Test Item Value Reference Range Interpretation Comments Creatinine Lvl (test code = Creatinine 11.10 0.50-1.40 Lvl) [facility]2019-11-21 19:17:00 Test Item Value Reference Range Interpretation Comments Sodium Lvl (test code = Sodium Lvl) 137 135-145 [facility]2019-11-21 19:17:00 Test Item Value Reference Range Interpretation Comments Potassium Lvl (test code = Potassium 3.8 3.5-5.1 Lvl) [facility]2019-11-21 19:17:00 Test Item Value Reference Range Interpretation Comments Chloride Lvl (test code = Chloride Lvl) 100 95-109 [facility]2019-11-21 19:17:00 Test Item Value Reference Range Interpretation Comments CO2 (test code = CO2) 27 24-32 [facility]2019-11-21 19:17:00 Test Item Value Reference Range Interpretation Comments Calcium Lvl (test code = Calcium Lvl) 8.9 8.5-10.5 [facility]2019-11-21 19:17:00 Test Item Value Reference Range Interpretation Comments Total Protein (test code = Total 8.4 6.4-8.4 Protein) [facility]2019-11-21 19:17:00 Test Item Value Reference Range Interpretation Comments Albumin Lvl (test code = Albumin Lvl) 3.7 3.5-5.0 [place] 604389-11-21 19:17:00 Test Item Value Reference Range Interpretation Comments ALT (test code = ALT) 15 See_Comment [Auto mated message] The system which ge nerated this result transmit cruz reference range : <=65. The reference range was not used to interpr et this result as gee l/abnormal. [facility]2019-11-21 19:17:00 Test Item Value Reference Range Interpretation Comments AST (test code = AST) 11 See_Comment [Auto mated message] The system which ge nerated this result transmit cruz reference range : <=37. The reference range was not used to interpr et this result as gee l/abnormal. [facility]2019-11-21 19:17:00 Test Item Value Reference Range Interpretation Comments Alk Phos (test code = Alk Phos) 80 39-136 [facility]2019-11-21 19:17:00 Test Item Value Reference Range Interpretation Comments Bili Total (test code = Bili Total) 0.4 0.2-1.3 [facility]2019-11-21 19:17:00 Test Item Value Reference Range Interpretation Comments eGFR (test code = eGFR) 5 [facility]2019-11-21 19:17:00 Test Item Value Reference Range Interpretation Comments AGAP (test code = AGAP) 13.8 10.0-20.0 [facility]2019-11-21 19:17:00 Test Item Value Reference Range Interpretation Comments B/C Ratio (test code = B/C Ratio) 4 1 6-25 [place] [id number] 19:17:00 Test Item Value Reference Range Interpretation Comments Globulin (test code = Globulin) 4.7 2.7-4.2 [facility]2019-11-21 19:17:00 Test Item Value Reference Range Interpretation Comments A/G Ratio (test code = A/G Ratio) 0.8 1 0.7-1.6 [facility] CenterFpiticpMMFVAAAKII2694-28-34 19:17:00 Test Item Value Reference Range Interpretation Comments WBC (test code = WBC) 7.9 3.7-10.4 [facility] CenterYqlywyhTBHBJGLCRY2744-56-72 19:17:00 Test Item Value Reference Range Interpretation Comments RBC (test code = RBC) 3.90 4.70-6.10 [facility] CenterWidbraaIAZKOLPLZY2888-11-69 19:17:00 Test Item Value Reference Range Interpretation Comments Hgb (test code = Hgb) 13.3 14.0-18.0 [facility] CenterAfmoxzoTXFSRVNWMR4662-18-56 19:17:00 Test Item Value Reference Range Interpretation Comments Hct (test code = Hct) 39.0 42.0-54.0 [facility] CenterXduodgwUTOMXGOSGB3733-00-12 19:17:00 Test Item Value Reference Range Interpretation Comments MCV (test code = MCV) 99.9 80.0-94.0 [facility] CenterMigbexrXNCPMERIFP9553-08-85 19:17:00 Test Item Value Reference Range Interpretation Comments MCH (test code = MCH) 34.2 pg 27.0-31.0 [facility] CenterXfdiyumRCWJOIWLVA0768-68-88 19:17:00 Test Item Value Reference Range Interpretation Comments MCHC (test code = MCHC) 34.2 32.0-36.0 [facility] CenterHvsabpnSPHSFRXVVM0891-47-55 19:17:00 Test Item Value Reference Range Interpretation Comments RDW (test code = RDW) 14.1 11.5-14.5 [facility] CenterIjoatlgQJNISCNTSS1011-23-31 19:17:00 Test Item Value Reference Range Interpretation Comments Platelet (test code = Platelet) 251 133-450 [facility] CenterSamkgpsZIEFRZGZNA2043-76-14 19:17:00 Test Item Value Reference Range Interpretation Comments MPV (test code = MPV) 8.8 7.4-10.4 [facility] CenterWvxlaqfWKLMCBMBBY1711-42-47 19:17:00 Test Item Value Reference Range Interpretation Comments Segs (test code = Segs) 69.6 45.0-75.0 [facility] CenterFhdrlhyUKJKPXIADP9804-82-15 19:17:00 Test Item Value Reference Range Interpretation Comments Lymphocytes (test code = Lymphocytes) 21.8 20.0-40.0 [facility] CenterAfkkjkmEOMHMHEYGV2522-22-36 19:17:00 Test Item Value Reference Range Interpretation Comments Monocytes (test code = Monocytes) 6.8 2.0-12.0 [facility] CenterDswootvHCONIEPXDH8087-35-48 19:17:00 Test Item Value Reference Range Interpretation Comments Eosinophils (test code = 1.2 See_Comment [A utomated message] The Eosinophils) system which ge nerated this result tra nsmitted reference range : <=4.0. The reference r jillian was not used to int erpret this result as normal/abnormal . [facility] CenterVcxuxpmXEOREIROGX2382-71-39 19:17:00 Test Item Value Reference Range Interpretation Comments Basophils (test code = 0.6 See_Comment [Aut omated message] The Basophils) system which ge nerated this result tra nsmitted reference range : <=1.0. The reference r jillian was not used to int erpret this result as normal/abnormal . [facility] CenterUlymbpzGGLJIVIARJ4423-36-23 19:17:00 Test Item Value Reference Range Interpretation Comments Neutrophils # (test code = Neutrophils 5.5 1.5-8.1 #) [facility] CenterGalfbspSHKYILNQCK0178-32-55 19:17:00 Test Item Value Reference Range Interpretation Comments Lymphocytes # (test code = Lymphocytes 1.7 1.0-5.5 #) [facility] CenterByraaxsEZCRSFUIZG0122-25-19 19:17:00 Test Item Value Reference Range Interpretation Comments Monocytes # (test code 0.5 See_Comment [Aut omated message] The = Monocytes #) system which generated this result tra nsmitted reference range : <=0.8. The reference r jillian was not used to int erpret this result as normal/abnormal . [facility] CenterCbkpifrVRHQOVHSZK5705-74-50 19:17:00 Test Item Value Reference Range Interpretation Comments Eosinophils # (test code 0.1 See_Comment [A utomated message] The = Eosinophils #) system whic h generated this result tra nsmitted reference range : <=0.5. The reference r jillian was not used to int erpret this result as normal/abnormal . [facility]OztmmmzZIFMHNIHIG5923-92-56 19:17:00 Test Item Value Reference Range Interpretation Comments Acetaminoph Lvl (test code (08/19/19 1:17 PM) 10-20 = Acetaminoph Lvl) [facility] HospitalBumgrwkXXCDGORCSM5678-78-72 19:17:00 Test Item Value Reference Range Interpretation Comments Ethanol Lvl (test code = Ethanol Lvl) no gt [facility] HospitalDqimeicQITXLHUCON2610-74-72 19:17:00 Test Item Value Reference Range Interpretation Comments Etoh (%) (test code = Etoh (%)) no gt [facility]UvcypmrAGEQGOSSGP1747-34-99 19:17:00 Test Item Value Reference Range Interpretation Comments Salicylate Lvl (test no gt See_Comment [Autom ated message] The code = Salicylate Lvl) syste m which generated this result tra nsmitted reference range : <=30.0. The reference r jillian was not used to int erpret this result as normal/abnormal . [facility] HospitalBRAIN NATRIURETIC VLVONYZ2628-68-60 08:55:00 Test Item Value Reference Range Interpretation Comments proBNP (test code = PBNP) 750 pg/mL 0-125 H COMPREHENSIVE METABOLIC [id number] 08:55:00 Test Item Value Reference Range Interpretation [...] (test code = 31A) 15 IU/L <=78 XBCAVZLWF2915-73-18 08:55:00 Test Item Value Reference Range Interpretation Comments MAGNESIUM (test code = 48A) 2.6 mg/dL 1.8-2.4 H PHOSPHORUS (P04)2019-08-11 08:55:00 Test Item Value Reference Range Interpretation Comments PHOSPHORUS (test code = 43D) 7.8 mg/dL 2.7-4.6 H TROPONIN [id number] 08:50:00 Test Item Value Reference Range Interpretation Comments TROPONIN I (test code = A84) <0.015 ng/mL 0.000-0.045 PRO TIME AND [id number] 08:43:00 Test Item Value Reference Range Interpretation [...] Order Code is ANTI-XA CT HEAD W/O KLUBYTVK2736-15-25 08:36:37CT brain without contrastLocation code: [id number] HISTORY: Dizziness COMPARISON: 03/03/18TECHNIQUE:Routine unenhanced axial imaging [...] = RBCMOR) NORMAL XR CHEST 1 VIEW SAXCJNVU9494-63-17 08:28:57Portable AP chest, 1 viewLocation Code: [id number] HISTORY: DizzinessCOMPARISON: 03/03/18COMMENT: The lungs are clear and well inflated. The costophrenic angles are sharp. Thecardiomediastinal silhouette is unremarkable. The bones are intact.IMPRESSION: Stable chest with no acute rtdgylervsbPAYSVUCSUTCQ9861-63-49 13:08:00 Test Item Value Reference Range Interpretation Comments AGAP (test code = AGAP) 19.3 10.0-20.0 [facility] HealthcareSuajdyfQJWFSPSQREWV9821-17-61 13:08:00 Test Item Value Reference Range Interpretation Comments eGFR (test code = eGFR) 7 [facility] HealthcareFxoinzgJFUBHSZIWFEB9698-94-98 13:08:00 Test Item Value Reference Range Interpretation Comments Calcium Lvl (test code = Calcium Lvl) 8.4 8.5-10.5 [facility] HealthcareQtfqnaeTOLJXCCRIXMO2083-61-43 13:08:00 Test Item Value Reference Range Interpretation Comments CO2 (test code = CO2) 24 24-32 [facility] HealthcareLamfnmrRWZNTKOBTMXE0737-98-44 13:08:00 Test Item Value Reference Range Interpretation Comments Chloride Lvl (test code = Chloride Lvl) 97 95-109 [facility] HealthcareVapobdaTAUQEWYUKDOR0559-85-78 13:08:00 Test Item Value Reference Range Interpretation Comments Potassium Lvl (test code = Potassium 5.3 3.5-5.1 Lvl) [facility] HealthcareFnvzqxcFPMPRNWRNERE8159-77-55 13:08:00 Test Item Value Reference Range Interpretation Comments BUN (test code = BUN) 39 7-22 [facility] HealthcareYxvvamuCGGGVRZFXIMX2134-72-94 13:08:00 Test Item Value Reference Range Interpretation Comments Creatinine Lvl (test code = Creatinine 7.58 0.50-1.40 Lvl) [facility] HealthcareZagxlbmDQLLSICHEPEE7988-80-43 13:08:00 Test Item Value Reference Range Interpretation Comments Sodium Lvl (test code = Sodium Lvl) 135 135-145 [facility] HealthcareEhkxrnnJWYFVOMUNPPN7234-48-13 13:08:00 Test Item Value Reference Range Interpretation Comments Glucose Lvl (test code = Glucose Lvl) 87 70-99 [facility] CenterXrvlpjnNFZSRNPZSE1747-67-63 13:08:00 Test Item Value Reference Range Interpretation Comments RDW (test code = RDW) 16.5 11.5-14.5 [facility] CenterYrkqjpxHRMNLMOZAE7249-16-83 13:08:00 Test Item Value Reference Range Interpretation Comments MCHC (test code = MCHC) 33.7 32.0-36.0 [facility] CenterPvvupmgRNEHFMCQSK1448-52-58 13:08:00 Test Item Value Reference Range Interpretation Comments MCH (test code = MCH) 33.7 pg 27.0-31.0 [facility] CenterYgfwxxdSKHTWODGXZ4961-32-32 13:08:00 Test Item Value Reference Range Interpretation Comments MCV (test code = MCV) 100.0 80.0-94.0 [facility] CenterBekkrsvQUWBSOMDWB7411-66-60 13:08:00 Test Item Value Reference Range Interpretation Comments Hct (test code = Hct) 39.7 42.0-54.0 [facility] CenterBexqbjdCFDQIGNVIX8136-72-24 13:08:00 Test Item Value Reference Range Interpretation Comments Hgb (test code = Hgb) 13.4 14.0-18.0 [facility] CenterTbfuzvaAAEUZPRMRQ1990-28-61 13:08:00 Test Item Value Reference Range Interpretation Comments RBC (test code = RBC) 3.97 4.70-6.10 [facility] CenterLpfznfiZYVBOXKBJE1911-04-29 13:08:00 Test Item Value Reference Range Interpretation Comments WBC (test code = WBC) 8.8 3.7-10.4 [place] [address]-12-27 13:08:00 Test Item Value Reference Range Interpretation Comments MPV (test code = MPV) 7.7 7.4-10.4 [facility] CenterOrjjsfqBVOELBUNKH3465-47-70 13:08:00 Test Item Value Reference Range Interpretation Comments Platelet (test code = Platelet) 324 133-450 [facility] HealthcareTolrqquOHGFICZXYPLT5311-27-54 13:08:00 Test Item Value Reference Range Interpretation Comments AGAP (test code = AGAP) 19.3 10.0-20.0 [facility] HealthcareLkjtcinNYJJECAAEEMB0442-56-50 13:08:00 Test Item Value Reference Range Interpretation Comments eGFR (test code = eGFR) 7 [facility] HealthcareHojsqixCMGZSTNDTDRB4409-38-36 13:08:00 Test Item Value Reference Range Interpretation Comments Calcium Lvl (test code = Calcium Lvl) 8.4 8.5-10.5 [facility] HealthcarePwatuzkACQNFYOUBHPF9586-38-26 13:08:00 Test Item Value Reference Range Interpretation Comments CO2 (test code = CO2) 24 24-32 [facility] HealthcareCbjbiahQYSJHTWYFHYX9615-83-07 13:08:00 Test Item Value Reference Range Interpretation Comments Chloride Lvl (test code = Chloride Lvl) 97 95-109 [facility] HealthcareVzqflbyZMKOFUXHAODM6708-20-62 13:08:00 Test Item Value Reference Range Interpretation Comments Potassium Lvl (test code = Potassium 5.3 3.5-5.1 Lvl) [facility] HealthcareGfsquzkOAVKNGMLXOPZ5879-12-20 13:08:00 Test Item Value Reference Range Interpretation Comments BUN (test code = BUN) 39 7-22 [facility] HealthcarePlnfprrSPMBWNOIDZIJ5906-11-84 13:08:00 Test Item Value Reference Range Interpretation Comments Creatinine Lvl (test code = Creatinine 7.58 0.50-1.40 Lvl) [facility] HealthcareUpvegajQVPNTFVPJOCV5001-58-54 13:08:00 Test Item Value Reference Range Interpretation Comments Sodium Lvl (test code = Sodium Lvl) 135 135-145 [facility] HealthcareLrytijjSRGESCBFKSWX3656-30-92 13:08:00 Test Item Value Reference Range Interpretation Comments Glucose Lvl (test code = Glucose Lvl) 87 70-99 [facility] CenterXnssdciGNMRIDZFPT1148-33-08 13:08:00 Test Item Value Reference Range Interpretation Comments RDW (test code = RDW) 16.5 11.5-14.5 [facility] CenterCnaaqxrCKJLFSSKRM1568-88-32 13:08:00 Test Item Value Reference Range Interpretation Comments MCHC (test code = MCHC) 33.7 32.0-36.0 [facility] CenterDpenstcRRWIIVDDAM7278-22-80 13:08:00 Test Item Value Reference Range Interpretation Comments MCH (test code = MCH) 33.7 pg 27.0-31.0 [facility] CenterIowrtlrHRQETAYBGZ8739-61-53 13:08:00 Test Item Value Reference Range Interpretation Comments MCV (test code = MCV) 100.0 80.0-94.0 [facility] CenterXwheejwWYXMFXKYEA1525-25-53 13:08:00 Test Item Value Reference Range Interpretation Comments Hct (test code = Hct) 39.7 42.0-54.0 [facility] CenterUhkvkvxBUKNMXCMXP9361-67-26 13:08:00 Test Item Value Reference Range Interpretation Comments Hgb (test code = Hgb) 13.4 14.0-18.0 [facility] CenterGrtvtbwBKZBKWNFST5319-92-20 13:08:00 Test Item Value Reference Range Interpretation Comments RBC (test code = RBC) 3.97 4.70-6.10 [facility] CenterUvxbkeaZLYURUUSWV6394-68-93 13:08:00 Test Item Value Reference Range Interpretation Comments WBC (test code = WBC) 8.8 3.7-10.4 [facility] CenterTnsacmkWQBRHQFGMC8945-63-24 13:08:00 Test Item Value Reference Range Interpretation Comments MPV (test code = MPV) 7.7 7.4-10.4 [facility] CenterFtqalvcZZSLXYADUU8483-02-90 13:08:00 Test Item Value Reference Range Interpretation Comments Platelet (test code = Platelet) 324 133-450 [facility] HealthcareZpuaompSHJMFGNUIRBK1044-79-44 13:08:00 Test Item Value Reference Range Interpretation Comments AGAP (test code = AGAP) 19.3 10.0-20.0 [facility] HealthcareQkselgmTMIVOXNFWTUT9310-24-91 13:08:00 Test Item Value Reference Range Interpretation Comments eGFR (test code = eGFR) 7 [facility] HealthcareWzoqaqbGLRHMPSIHBUR7031-70-63 13:08:00 Test Item Value Reference Range Interpretation Comments Calcium Lvl (test code = Calcium Lvl) 8.4 8.5-10.5 [facility] HealthcareOtimmolDLCMOZDWCHYK6710-02-45 13:08:00 Test Item Value Reference Range Interpretation Comments CO2 (test code = CO2) 24 24-32 [facility] HealthcareYsadkknYWVKMBQQRMMV7710-31-61 13:08:00 Test Item Value Reference Range Interpretation Comments Chloride Lvl (test code = Chloride Lvl) 97 95-109 [facility] HealthcareXcnntuuUVEWHTJFRMZV8185-73-82 13:08:00 Test Item Value Reference Range Interpretation Comments Potassium Lvl (test code = Potassium 5.3 3.5-5.1 Lvl) [facility] HealthcareSaxdoorAVBGSUXZIZYL0865-33-14 13:08:00 Test Item Value Reference Range Interpretation Comments BUN (test code = BUN) 39 7-22 [facility] HealthcareLspfpqfLIHTNFJIUTDE3474-32-50 13:08:00 Test Item Value Reference Range Interpretation Comments Creatinine Lvl (test code = Creatinine 7.58 0.50-1.40 Lvl) [facility] HealthcareHpjdjhgKJVBNVPPTTCK9875-66-13 13:08:00 Test Item Value Reference Range Interpretation Comments Sodium Lvl (test code = Sodium Lvl) 135 135-145 [facility] HealthcareKkcakirSUKSLLLWUBOL7786-82-10 13:08:00 Test Item Value Reference Range Interpretation Comments Glucose Lvl (test code = Glucose Lvl) 87 70-99 [facility] CenterJwjzwvmETWDHSCXZP9883-06-15 13:08:00 Test Item Value Reference Range Interpretation Comments RDW (test code = RDW) 16.5 11.5-14.5 [facility] CenterAbbwhnrWHJJCLJGKQ7045-06-20 13:08:00 Test Item Value Reference Range Interpretation Comments MCHC (test code = MCHC) 33.7 32.0-36.0 [facility] CenterZqmqhjpVVGWLZJUUW1434-50-37 13:08:00 Test Item Value Reference Range Interpretation Comments MCH (test code = MCH) 33.7 pg 27.0-31.0 [facility] CenterGzfvrdcJMSOTSEBOA7616-54-25 13:08:00 Test Item Value Reference Range Interpretation Comments MCV (test code = MCV) 100.0 80.0-94.0 [facility] CenterSxpspcvQWCJCJLBFL2695-22-52 13:08:00 Test Item Value Reference Range Interpretation Comments Hct (test code = Hct) 39.7 42.0-54.0 [facility] CenterIbwdjdpIGMWGRYJRY6470-57-12 13:08:00 Test Item Value Reference Range Interpretation Comments Hgb (test code = Hgb) 13.4 14.0-18.0 [facility] CenterPvpaymqCNTWIJRXVS7481-47-20 13:08:00 Test Item Value Reference Range Interpretation Comments RBC (test code = RBC) 3.97 4.70-6.10 [facility] CenterEnteilrQGJYMOIANM7694-13-08 13:08:00 Test Item Value Reference Range Interpretation Comments WBC (test code = WBC) 8.8 3.7-10.4 [facility] CenterQnhmoauILGGRGYUKK2513-98-98 13:08:00 Test Item Value Reference Range Interpretation Comments MPV (test code = MPV) 7.7 7.4-10.4 [facility] CenterWwaidzrCOOHEXFYTK6976-24-33 13:08:00 Test Item Value Reference Range Interpretation Comments Platelet (test code = Platelet) 324 133-450 [facility] HealthcareAsaalarUKMTRNEVFZFQ0797-09-25 13:08:00 Test Item Value Reference Range Interpretation Comments AGAP (test code = AGAP) 19.3 10.0-20.0 [facility] HealthcareQgblqgbYWCAHAIZDGUP0010-86-92 13:08:00 Test Item Value Reference Range Interpretation Comments eGFR (test code = eGFR) 7 [facility] HealthcareQvkdvdrBHUVSIPLZOCC9743-53-90 13:08:00 Test Item Value Reference Range Interpretation Comments Calcium Lvl (test code = Calcium Lvl) 8.4 8.5-10.5 [facility] HealthcareKifyvvxPBVWLNNFTOAX9019-25-12 13:08:00 Test Item Value Reference Range Interpretation Comments CO2 (test code = CO2) 24 24-32 [facility] HealthcareLtqcrobUQEWENPHPVAT1832-24-30 13:08:00 Test Item Value Reference Range Interpretation Comments Chloride Lvl (test code = Chloride Lvl) 97 95-109 [facility] HealthcareFlijmctVWWIBEAOBIJS7751-38-94 13:08:00 Test Item Value Reference Range Interpretation Comments Potassium Lvl (test code = Potassium 5.3 3.5-5.1 Lvl) [facility] HealthcarePgredgbYGDWOPQORDKJ9665-92-98 13:08:00 Test Item Value Reference Range Interpretation Comments BUN (test code = BUN) 39 7-22 [facility] HealthcareQcdenalNEHIPABDRZEC6200-70-30 13:08:00 Test Item Value Reference Range Interpretation Comments Creatinine Lvl (test code = Creatinine 7.58 0.50-1.40 Lvl) [facility] HealthcareXrikkfsIZPBUMCLSUCW4285-50-74 13:08:00 Test Item Value Reference Range Interpretation Comments Sodium Lvl (test code = Sodium Lvl) 135 135-145 [facility] HealthcareOzpvftsGDHMDTJTAMAR5483-64-26 13:08:00 Test Item Value Reference Range Interpretation Comments Glucose Lvl (test code = Glucose Lvl) 87 70-99 [facility] CenterUdejmmjRZRVGOVYKG2510-61-57 13:08:00 Test Item Value Reference Range Interpretation Comments RDW (test code = RDW) 16.5 11.5-14.5 [facility] CenterPgqsgwvUKMPLJVLIJ2962-99-72 13:08:00 Test Item Value Reference Range Interpretation Comments MCHC (test code = MCHC) 33.7 32.0-36.0 [facility] CenterDhrclqbJDTCQQULXU0084-60-73 13:08:00 Test Item Value Reference Range Interpretation Comments MCH (test code = MCH) 33.7 pg 27.0-31.0 [facility] CenterTifvahcMRYJRIVBFY4853-99-75 13:08:00 Test Item Value Reference Range Interpretation Comments MCV (test code = MCV) 100.0 80.0-94.0 [facility] CenterOrwhqtzLUNPKWDTHJ5956-27-45 13:08:00 Test Item Value Reference Range Interpretation Comments Hct (test code = Hct) 39.7 42.0-54.0 [facility] CenterJakudjyKELRNLZMEE0218-06-21 13:08:00 Test Item Value Reference Range Interpretation Comments Hgb (test code = Hgb) 13.4 14.0-18.0 [facility] CenterHupireuLRYPOGAEHU6610-76-17 13:08:00 Test Item Value Reference Range Interpretation Comments RBC (test code = RBC) 3.97 4.70-6.10 [facility] CenterGnbasfaVAALHPOBOZ2048-90-80 13:08:00 Test Item Value Reference Range Interpretation Comments WBC (test code = WBC) 8.8 3.7-10.4 [facility] CenterPpwlvvvSDGUWGLBMX2585-39-25 13:08:00 Test Item Value Reference Range Interpretation Comments MPV (test code = MPV) 7.7 7.4-10.4 [facility] CenterThsqlqnSVOJCKVYWD2801-56-74 13:08:00 Test Item Value Reference Range Interpretation Comments Platelet (test code = Platelet) 324 133-450 [facility] HealthcareWhucvgtWWCYAZALEXZI2025-77-48 18:27:00 Test Item Value Reference Range Interpretation Comments Potassium Lvl (test code = Potassium 4.2 3.5-5.1 Lvl) [facility] HealthcareFaxbboxUVXFCRSPIZXQ5120-44-39 18:27:00 Test Item Value Reference Range Interpretation Comments BUN (test code = BUN) 32 7-22 [facility] HealthcareJxxetpuESNRJRHULWUP1364-24-68 18:27:00 Test Item Value Reference Range Interpretation Comments Glucose Lvl (test code = Glucose Lvl) 75 70-99 [facility] HealthcareEuzslcoGTUXTBBVNDBU4724-61-52 18:27:00 Test Item Value Reference Range Interpretation Comments Calcium Lvl (test code = Calcium Lvl) 7.9 8.5-10.5 [facility] HealthcareJpycakcWSCBDBTSLBLB8371-28-33 18:27:00 Test Item Value Reference Range Interpretation Comments CO2 (test code = CO2) 14 24-32 [facility] HealthcareNxmtneiFZNJHEDCLAAL6173-51-49 18:27:00 Test Item Value Reference Range Interpretation Comments Chloride Lvl (test code = Chloride Lvl) 110 95-109 [facility] CenterZwluqhcQCNSEVHDQL8240-55-99 18:27:00 Test Item Value Reference Range Interpretation Comments Hgb (test code = Hgb) 13.8 14.0-18.0 [facility] CenterLoahedxBJJIPQVNMK3443-51-68 18:27:00 Test Item Value Reference Range Interpretation Comments Hct (test code = Hct) 40.9 42.0-54.0 [facility] CenterHnqrpteSUERKIITHJ0431-64-72 18:27:00 Test Item Value Reference Range Interpretation Comments RBC (test code = RBC) 4.29 4.70-6.10 [facility] CenterQydyvqgIVLIEVZAAA1311-81-34 18:27:00 Test Item Value Reference Range Interpretation Comments MCV (test code = MCV) 95.4 80.0-94.0 [facility] CenterTbzhdqbFFDRAJPSWG2422-61-83 18:27:00 Test Item Value Reference Range Interpretation Comments MCH (test code = MCH) 32.1 pg 27.0-31.0 [facility] CenterNharbueBYMGCLTVZT3536-38-09 18:27:00 Test Item Value Reference Range Interpretation Comments WBC (test code = WBC) 12.2 3.7-10.4 [facility] CenterVkkuothSNHCAGAGZM9797-51-29 18:27:00 Test Item Value Reference Range Interpretation Comments MPV (test code = MPV) 8.8 7.4-10.4 [facility] CenterAqrubhgNMYHGRDNHR9192-10-56 18:27:00 Test Item Value Reference Range Interpretation Comments RDW (test code = RDW) 14.5 11.5-14.5 [facility] CenterLmbxnozVOBXIYRCFH4882-67-09 18:27:00 Test Item Value Reference Range Interpretation Comments Platelet (test code = Platelet) 196 133-450 [facility] CenterIkgrfghEVEHUZESJO4884-33-19 18:27:00 Test Item Value Reference Range Interpretation Comments MCHC (test code = MCHC) 33.6 32.0-36.0 [facility] CenterIfxaqucCUQZFTUPMX3644-21-85 18:27:00 Test Item Value Reference Range Interpretation Comments Lymphocytes # (test code = Lymphocytes 1.6 1.0-5.5 #) [facility] CenterCpoluptLPSMASGWOC8545-37-00 18:27:00 Test Item Value Reference Range Interpretation Comments Neutrophils # (test code = Neutrophils 9.6 1.5-8.1 #) [facility] CenterVbleeriAYPQBAQUNS4807-94-45 18:27:00 Test Item Value Reference Range Interpretation Comments Basophils # (test code 0.1 See_Comment [Aut omated message] The = Basophils #) system which generated this result tra nsmitted reference range : <=0.2. The reference r jillian was not used to int erpret this result as normal/abnormal . [facility] CenterCkeyflbGLUCXKPRZJ7624-31-37 18:27:00 Test Item Value Reference Range Interpretation Comments Eosinophils # (test code 0.1 See_Comment [A utomated message] The = Eosinophils #) system whic h generated this result tra nsmitted reference range : <=0.5. The reference r jillian was not used to int erpret this result as normal/abnormal . [facility] CenterRbzyyulJAPTKNTZNQ4952-77-02 18:27:00 Test Item Value Reference Range Interpretation Comments Monocytes # (test code 0.9 See_Comment [Aut omated message] The = Monocytes #) system which generated this result tra nsmitted reference range : <=0.8. The reference r jillian was not used to int erpret this result as normal/abnormal . [facility] CenterLfmmbqeJISPLKDYVH3566-65-02 18:27:00 Test Item Value Reference Range Interpretation Comments Basophils (test code = 0.5 See_Comment [Aut omated message] The Basophils) system which ge nerated this result tra nsmitted reference range : <=1.0. The reference r jillian was not used to int erpret this result as normal/abnormal . [facility]TdpfrcgNXZUSRWKKS8911-41-06 18:27:00 Test Item Value Reference Range Interpretation Comments Eosinophils (test code = 1.1 See_Comment [A utomated message] The Eosinophils) system which ge nerated this result tra nsmitted reference range : <=4.0. The reference r jillian was not used to int erpret this result as normal/abnormal . [facility] CenterSwutkdwLJFEUXIPOY7951-55-26 18:27:00 Test Item Value Reference Range Interpretation Comments Monocytes (test code = Monocytes) 7.2 2.0-12.0 [facility]QmkbxoeRSEKMUHCNM8229-31-26 18:27:00 Test Item Value Reference Range Interpretation Comments Lymphocytes (test code = Lymphocytes) 12.8 20.0-40.0 [facility]YsomldaUWXASYDRRS2611-02-12 18:27:00 Test Item Value Reference Range Interpretation Comments Segs (test code = Segs) 78.4 45.0-75.[address] [facility] [address] HospitalCARDIAC YTRCDST2732-42-62 18:27:00 Test Item Value Reference Range Interpretation Comments Troponin-I (test code no gt See_Comment [Auto mated message] The = Troponin-I) system which g enerated this result transmit cruz reference range : <=0.40. The reference r jillian was not used to interpr et this result as gee l/abnormal. [facility] HealthcareEcbfulwPFSQHHPFYULK0821-70-39 18:27:00 Test Item Value Reference Range Interpretation Comments AGAP (test code = AGAP) 17.2 10.0-20.0 [facility] HealthcareBfyuglaLQPCZDWRZTHU7325-88-59 18:27:00 Test Item Value Reference Range Interpretation Comments eGFR (test code = eGFR) 6 [facility] HealthcareEdgasjuJJIGPSLUGJIO2017-94-26 18:27:00 Test Item Value Reference Range Interpretation Comments Creatinine Lvl (test code = Creatinine 8.49 0.50-1.40 Lvl) [facility] HealthcareKrekobcDEUNMYUTXWVF2990-80-23 18:27:00 Test Item Value Reference Range Interpretation Comments Sodium Lvl (test code = Sodium Lvl) 137 135-145 [facility]HsgzzjrIFXGYLHPMDUB0447-75-42 18:27:00 Test Item Value Reference Range Interpretation Comments Potassium Lvl (test code = Potassium 4.2 3.5-5.1 Lvl) [facility] HealthcareNuczwjbPZMXHKNDDJGO2512-36-76 18:27:00 Test Item Value Reference Range Interpretation Comments BUN (test code = BUN) 32 7-22 [facility] HealthcareGbermbfHYMSIJNVWNQD4563-22-56 18:27:00 Test Item Value Reference Range Interpretation Comments Glucose Lvl (test code = Glucose Lvl) 75 70-99 [facility] HealthcareLyeqglmJFILPJWCFUAV0744-27-42 18:27:00 Test Item Value Reference Range Interpretation Comments Calcium Lvl (test code = Calcium Lvl) 7.9 8.5-10.5 [facility] HealthcarePfiqrfhEQHKAVXEYKKF6243-75-71 18:27:00 Test Item Value Reference Range Interpretation Comments CO2 (test code = CO2) 14 24-32 [facility] HealthcareXmyfkfwBUOGJGUNTIUA2988-92-80 18:27:00 Test Item Value Reference Range Interpretation Comments Chloride Lvl (test code = Chloride Lvl) 110 95-109 [facility] CenterWzvgqaiIFKKVVLXFL3711-14-56 18:27:00 Test Item Value Reference Range Interpretation Comments Hgb (test code = Hgb) 13.8 14.0-18.0 [facility] CenterYjhaaujBVLVJAKLLF9568-64-60 18:27:00 Test Item Value Reference Range Interpretation Comments Hct (test code = Hct) 40.9 42.0-54.0 [facility] CenterJzvevdfJKJEQLZSZV2631-17-82 18:27:00 Test Item Value Reference Range Interpretation Comments RBC (test code = RBC) 4.29 4.70-6.10 [facility] CenterKdgwpfpNNATURCFMK0925-94-98 18:27:00 Test Item Value Reference Range Interpretation Comments MCV (test code = MCV) 95.4 80.0-94.0 [facility]KjzjlxnVOJZDBBLDJ7780-63-80 18:27:00 Test Item Value Reference Range Interpretation Comments MCH (test code = MCH) 32.1 pg 27.0-31.0 [facility] CenterDerrnmlFSYVPEKLUJ5725-80-46 18:27:00 Test Item Value Reference Range Interpretation Comments WBC (test code = WBC) 12.2 3.7-10.4 [facility] CenterOvbozfuDQZPXWAUIT5324-90-22 18:27:00 Test Item Value Reference Range Interpretation Comments MPV (test code = MPV) 8.8 7.4-10.4 [facility] CenterQbmhgkhCTJYXIPBDV5224-65-47 18:27:00 Test Item Value Reference Range Interpretation Comments RDW (test code = RDW) 14.5 11.5-14.5 [facility] CenterJnkmacyDXUHEMKTQT2358-38-52 18:27:00 Test Item Value Reference Range Interpretation Comments Platelet (test code = Platelet) 196 133-450 [facility] CenterVeuvgnkJRHUZULXGD0791-87-98 18:27:00 Test Item Value Reference Range Interpretation Comments MCHC (test code = MCHC) 33.6 32.0-36.0 [facility] CenterBkzjxgpJLAIWARYCJ5034-70-83 18:27:00 Test Item Value Reference Range Interpretation Comments Lymphocytes # (test code = Lymphocytes 1.6 1.0-5.5 #) [facility] CenterOuacmygEOHOKEKAHP5593-63-31 18:27:00 Test Item Value Reference Range Interpretation Comments Neutrophils # (test code = Neutrophils 9.6 1.5-8.1 #) [facility] CenterIlynsotUULIFMIJIP7539-75-65 18:27:00 Test Item Value Reference Range Interpretation Comments Basophils # (test code 0.1 See_Comment [Aut omated message] The = Basophils #) system which generated this result tra nsmitted reference range : <=0.2. The reference r jillian was not used to int erpret this result as normal/abnormal . [facility] CenterCeqwnyjZHKQPNJYTH1335-84-20 18:27:00 Test Item Value Reference Range Interpretation Comments Eosinophils # (test code 0.1 See_Comment [A utomated message] The = Eosinophils #) system whic h generated this result tra nsmitted reference range : <=0.5. The reference r jillian was not used to int erpret this result as normal/abnormal . [facility] CenterOsukcudYOAKVJUOAB6947-23-17 18:27:00 Test Item Value Reference Range Interpretation Comments Monocytes # (test code 0.9 See_Comment [Aut omated message] The = Monocytes #) system which generated this result tra nsmitted reference range : <=0.8. The reference r jillina was not used to int erpret this result as normal/abnormal . [facility] CenterRqcskivBTGXQXCTLS6752-70-70 18:27:00 Test Item Value Reference Range Interpretation Comments Basophils (test code = 0.5 See_Comment [Aut omated message] The Basophils) system which ge nerated this result tra nsmitted reference range : <=1.0. The reference r jillian was not used to int erpret this result as normal/abnormal . [facility]SbaijreMFULMMERCS7034-01-81 18:27:00 Test Item Value Reference Range Interpretation Comments Eosinophils (test code = 1.1 See_Comment [A utomated message] The Eosinophils) system which ge nerated this result tra nsmitted reference range : <=4.0. The reference r jililan was not used to int erpret this result as normal/abnormal . [facility] CenterCtdntlfMNIXTAFSGK6724-17-13 18:27:00 Test Item Value Reference Range Interpretation Comments Monocytes (test code = Monocytes) 7.2 2.0-12.0 [facility]EmcdjtoMNFGANGNEL8690-09-82 18:27:00 Test Item Value Reference Range Interpretation Comments Lymphocytes (test code = Lymphocytes) 12.8 20.0-40.0 [facility]NmkrsnmLYNOXTDMMR9279-38-64 18:27:00 Test Item Value Reference Range Interpretation Comments Segs (test code = Segs) 78.4 45.0-75.[address] [facility] VEXXPXZ4849-32-10 18:27:00 Test Item Value Reference Range Interpretation Comments Troponin-I (test code no gt See_Comment [Auto mated message] The = Troponin-I) system which g enerated this result transmit cruz reference range : <=0.40. The reference r jillian was not used to interpr et this result as gee l/abnormal. [facility]WybxxqhAIAWPDDYMWBV8761-57-96 18:27:00 Test Item Value Reference Range Interpretation Comments AGAP (test code = AGAP) 17.2 10.0-20.0 [facility] HealthcareOtxqknwJFFKWEQUQUWP3834-46-83 18:27:00 Test Item Value Reference Range Interpretation Comments eGFR (test code = eGFR) 6 [facility] HealthcareHikvwbzQSBHCLDXQMQY6159-91-67 18:27:00 Test Item Value Reference Range Interpretation Comments Creatinine Lvl (test code = Creatinine 8.49 0.50-1.40 Lvl) [facility] HealthcareRzjgtwrFPSQLHDRMXII6399-12-24 18:27:00 Test Item Value Reference Range Interpretation Comments Sodium Lvl (test code = Sodium Lvl) 137 135-145 [facility] HealthcareJmckyncQSGHJFRXVLKX7791-21-24 18:27:00 Test Item Value Reference Range Interpretation Comments Potassium Lvl (test code = Potassium 4.2 3.5-5.1 Lvl) [facility] HealthcareWexenxdUGPRWPQYMBPE6066-32-18 18:27:00 Test Item Value Reference Range Interpretation Comments BUN (test code = BUN) 32 7-22 [facility] HealthcareZhdgdycZUWQRYTTLNUF1959-47-22 18:27:00 Test Item Value Reference Range Interpretation Comments Glucose Lvl (test code = Glucose Lvl) 75 70-99 [facility] HealthcareWpodmlnAYHMQXEGEAIZ0335-20-99 18:27:00 Test Item Value Reference Range Interpretation Comments Calcium Lvl (test code = Calcium Lvl) 7.9 8.5-10.5 [facility] HealthcareCjkuqckUZTYQSTGTGFD4195-85-57 18:27:00 Test Item Value Reference Range Interpretation Comments CO2 (test code = CO2) 14 24-32 [facility] HealthcareTfmnrekCHFIKXKATBWV5177-75-40 18:27:00 Test Item Value Reference Range Interpretation Comments Chloride Lvl (test code = Chloride Lvl) 110 95-109 [facility] CenterUpqdwejNWKYBPMIIO6555-41-54 18:27:00 Test Item Value Reference Range Interpretation Comments Hgb (test code = Hgb) 13.8 14.0-18.0 [facility] CenterNrnbmktRZGBKRARXR3251-19-00 18:27:00 Test Item Value Reference Range Interpretation Comments Hct (test code = Hct) 40.9 42.0-54.0 [facility] CenterBqxdobfXCBFYQFGBM7864-05-51 18:27:00 Test Item Value Reference Range Interpretation Comments RBC (test code = RBC) 4.29 4.70-6.10 [facility] CenterRrxaazvZCFSKDOIUV6345-82-53 18:27:00 Test Item Value Reference Range Interpretation Comments MCV (test code = MCV) 95.4 80.0-94.0 [facility] CenterEtjycncYWPNMZGJWA8290-84-88 18:27:00 Test Item Value Reference Range Interpretation Comments MCH (test code = MCH) 32.1 pg 27.0-31.0 [facility] CenterRwvgvflEICSKBHPBI8437-73-17 18:27:00 Test Item Value Reference Range Interpretation Comments WBC (test code = WBC) 12.2 3.7-10.4 [facility] CenterArjvckzDDHTRAFHVX6399-15-38 18:27:00 Test Item Value Reference Range Interpretation Comments MPV (test code = MPV) 8.8 7.4-10.4 [facility] CenterPbyyywwSYECLOWRNJ2998-48-76 18:27:00 Test Item Value Reference Range Interpretation Comments RDW (test code = RDW) 14.5 11.5-14.5 [facility] CenterTdwksivGNNHSANLCW7631-43-26 18:27:00 Test Item Value Reference Range Interpretation Comments Platelet (test code = Platelet) 196 133-450 [facility] CenterYelituhQENZXMFVCB0409-63-69 18:27:00 Test Item Value Reference Range Interpretation Comments MCHC (test code = MCHC) 33.6 32.0-36.0 [facility] CenterDhixwriHKLPDDJBMW4883-51-30 18:27:00 Test Item Value Reference Range Interpretation Comments Lymphocytes # (test code = Lymphocytes 1.6 1.0-5.5 #) [facility] CenterNvrjpqrMTWBVBFCVL2664-29-15 18:27:00 Test Item Value Reference Range Interpretation Comments Neutrophils # (test code = Neutrophils 9.6 1.5-8.1 #) [facility] CenterLdnivajDOFQRAKQDD6766-73-57 18:27:00 Test Item Value Reference Range Interpretation Comments Basophils # (test code 0.1 See_Comment [Aut omated message] The = Basophils #) system which generated this result tra nsmitted reference range : <=0.2. The reference r jillian was not used to int erpret this result as normal/abnormal . [facility] CenterKoqabyhOJFRAERYGI0246-14-21 18:27:00 Test Item Value Reference Range Interpretation Comments Eosinophils # (test code 0.1 See_Comment [A utomated message] The = Eosinophils #) system whic h generated this result tra nsmitted reference range : <=0.5. The reference r jillian was not used to int erpret this result as normal/abnormal . [facility] CenterBydtjatSPAPKWDCFG7561-09-85 18:27:00 Test Item Value Reference Range Interpretation Comments Monocytes # (test code 0.9 See_Comment [Aut omated message] The = Monocytes #) system which generated this result tra nsmitted reference range : <=0.8. The reference r jillian was not used to int erpret this result as normal/abnormal . [facility] CenterZgctwuaZNIJCDIHBV2724-81-50 18:27:00 Test Item Value Reference Range Interpretation Comments Basophils (test code = 0.5 See_Comment [Aut omated message] The Basophils) system which ge nerated this result tra nsmitted reference range : <=1.0. The reference r jillian was not used to int erpret this result as normal/abnormal . [facility] HospitalCixetpsGMYGCATJCL2490-30-01 18:27:00 Test Item Value Reference Range Interpretation Comments Eosinophils (test code = 1.1 See_Comment [A utomated message] The Eosinophils) system which ge nerated this result tra nsmitted reference range : <=4.0. The reference r jillian was not used to int erpret this result as normal/abnormal . [facility] HospitalSpcepvjMMOLQBMVYQ7716-04-19 18:27:00 Test Item Value Reference Range Interpretation Comments Monocytes (test code = Monocytes) 7.2 2.0-12.0 [facility] HospitalMeiuhsgGPXLFZAEIH8906-27-73 18:27:00 Test Item Value Reference Range Interpretation Comments Lymphocytes (test code = Lymphocytes) 12.8 20.0-40.0 [facility]EnppsgwXUBTZSRSMT4348-36-61 18:27:00 Test Item Value Reference Range Interpretation Comments Segs (test code = Segs) 78.4 45.0-75.[address] [facility] [address] HospitalCARDIAC QHBVHGL5968-76-57 18:27:00 Test Item Value Reference Range Interpretation Comments Troponin-I (test code no gt See_Comment [Auto mated message] The = Troponin-I) system which g enerated this result transmit cruz reference range : <=0.40. The reference r jillian was not used to interpr et this result as gee l/abnormal. [facility] HealthcareCmnpjxeCVCPDPTSMAQP0569-22-78 18:27:00 Test Item Value Reference Range Interpretation Comments AGAP (test code = AGAP) 17.2 10.0-20.0 [facility] HealthcareOdwyinbWKLTTSKRTHXC1413-18-35 18:27:00 Test Item Value Reference Range Interpretation Comments eGFR (test code = eGFR) 6 [facility] HealthcareWvumdbxSOOTUVOMXTHZ7552-54-36 18:27:00 Test Item Value Reference Range Interpretation Comments Creatinine Lvl (test code = Creatinine 8.49 0.50-1.40 Lvl) [facility] HealthcareXpzncqeMFMJVDUVQAXC5758-63-40 18:27:00 Test Item Value Reference Range Interpretation Comments Sodium Lvl (test code = Sodium Lvl) 137 135-145 [facility]EviyuezGEFMRWQSPLUC6103-07-19 18:27:00 Test Item Value Reference Range Interpretation Comments Potassium Lvl (test code = Potassium 4.2 3.5-5.1 Lvl) [facility] HealthcareRayowjcBOSBJYFCXYAR7683-33-70 18:27:00 Test Item Value Reference Range Interpretation Comments BUN (test code = BUN) 32 7-22 [facility] HealthcareHmkcrooUMPTSODMDKBY6006-78-18 18:27:00 Test Item Value Reference Range Interpretation Comments Glucose Lvl (test code = Glucose Lvl) 75 70-99 [facility] HealthcareBwraqunVZFUGPDEYBTG9844-35-94 18:27:00 Test Item Value Reference Range Interpretation Comments Calcium Lvl (test code = Calcium Lvl) 7.9 8.5-10.5 [facility] HealthcarePmturkpZTHIMYVSWTRV3127-58-02 18:27:00 Test Item Value Reference Range Interpretation Comments CO2 (test code = CO2) 14 24-32 [facility] HealthcareIxafwrrRMVXHCDMYJIM5022-19-91 18:27:00 Test Item Value Reference Range Interpretation Comments Chloride Lvl (test code = Chloride Lvl) 110 95-109 [facility] CenterKcscdehAUDGLSNBFT6429-90-72 18:27:00 Test Item Value Reference Range Interpretation Comments Hgb (test code = Hgb) 13.8 14.0-18.0 [facility] CenterHwodcarYQCYPVYSZS7585-54-38 18:27:00 Test Item Value Reference Range Interpretation Comments Hct (test code = Hct) 40.9 42.0-54.0 [facility] CenterNsunhhjALVGNTMBTU4065-78-19 18:27:00 Test Item Value Reference Range Interpretation Comments RBC (test code = RBC) 4.29 4.70-6.10 [facility] CenterIvsamufDTVUZFEKIO5807-58-12 18:27:00 Test Item Value Reference Range Interpretation Comments MCV (test code = MCV) 95.4 80.0-94.0 [facility] CenterGrbprqyUDQQXZGNYB8406-13-46 18:27:00 Test Item Value Reference Range Interpretation Comments MCH (test code = MCH) 32.1 pg 27.0-31.0 [facility] CenterOnhkyiyPGFLRTZDNC4381-43-47 18:27:00 Test Item Value Reference Range Interpretation Comments WBC (test code = WBC) 12.2 3.7-10.4 [facility] CenterFmmzyypSSLSWUMJLP7392-89-87 18:27:00 Test Item Value Reference Range Interpretation Comments MPV (test code = MPV) 8.8 7.4-10.4 [facility] CenterYyiiteiEQVPXQOBQX7543-23-39 18:27:00 Test Item Value Reference Range Interpretation Comments RDW (test code = RDW) 14.5 11.5-14.5 [facility] CenterYjmdanfTZLNOWITMA8753-01-27 18:27:00 Test Item Value Reference Range Interpretation Comments Platelet (test code = Platelet) 196 133-450 [facility] CenterWmgzksxQCFMDCJPCG7808-85-39 18:27:00 Test Item Value Reference Range Interpretation Comments MCHC (test code = MCHC) 33.6 32.0-36.0 [facility] CenterNaxgqcrLLAOTSTTHC8632-03-79 18:27:00 Test Item Value Reference Range Interpretation Comments Lymphocytes # (test code = Lymphocytes 1.6 1.0-5.5 #) [facility] CenterLubwmswBPQOOHKEXS8592-44-21 18:27:00 Test Item Value Reference Range Interpretation Comments Neutrophils # (test code = Neutrophils 9.6 1.5-8.1 #) [facility] CenterIdlkwsuXWQTZQQVJP5648-53-15 18:27:00 Test Item Value Reference Range Interpretation Comments Basophils # (test code 0.1 See_Comment [Aut omated message] The = Basophils #) system which generated this result tra nsmitted reference range : <=0.2. The reference r jillian was not used to int erpret this result as normal/abnormal . [facility] CenterRyzetwmCNDJXTVKZR4379-29-69 18:27:00 Test Item Value Reference Range Interpretation Comments Eosinophils # (test code 0.1 See_Comment [A utomated message] The = Eosinophils #) system whic h generated this result tra nsmitted reference range : <=0.5. The reference r jillian was not used to int erpret this result as normal/abnormal . [facility] CenterDtgrxrqMUMNPKBXOW0699-55-85 18:27:00 Test Item Value Reference Range Interpretation Comments Monocytes # (test code 0.9 See_Comment [Aut omated message] The = Monocytes #) system which generated this result tra nsmitted reference range : <=0.8. The reference r jillian was not used to int erpret this result as normal/abnormal . [facility] CenterLbaqsisOJVZDGLQLD5338-83-10 18:27:00 Test Item Value Reference Range Interpretation Comments Basophils (test code = 0.5 See_Comment [Aut omated message] The Basophils) system which ge nerated this result tra nsmitted reference range : <=1.0. The reference r jillian was not used to int erpret this result as normal/abnormal . [facility]XgdfqzeIARUDAIQQX1006-12-75 18:27:00 Test Item Value Reference Range Interpretation Comments Eosinophils (test code = 1.1 See_Comment [A utomated message] The Eosinophils) system which ge nerated this result tra nsmitted reference range : <=4.0. The reference r jillian was not used to int erpret this result as normal/abnormal . [facility]KtnypzwMHTSTLTQNT5002-34-42 18:27:00 Test Item Value Reference Range Interpretation Comments Monocytes (test code = Monocytes) 7.2 2.0-12.0 [facility] CenterKvdrdieGGZHVHQULJ3155-87-81 18:27:00 Test Item Value Reference Range Interpretation Comments Lymphocytes (test code = Lymphocytes) 12.8 20.0-40.0 [facility] HospitalJmvbijnSRPGETFPVN7599-68-76 18:27:00 Test Item Value Reference Range Interpretation Comments Segs (test code = Segs) 78.4 45.0-75.[address] [facility] [address] HospitalCARDIAC AZSWPZH7960-46-53 18:27:00 Test Item Value Reference Range Interpretation Comments Troponin-I (test code no gt See_Comment [Auto mated message] The = Troponin-I) system which g enerated this result transmit cruz reference range : <=0.40. The reference r jillian was not used to interpr et this result as gee l/abnormal. [facility]VknjzfaQLQQIPPACDFD9477-81-85 18:27:00 Test Item Value Reference Range Interpretation Comments AGAP (test code = AGAP) 17.2 10.0-20.0 [facility] HospitalNylsxjxLUJUHGCZGQMY8315-23-34 18:27:00 Test Item Value Reference Range Interpretation Comments eGFR (test code = eGFR) 6 [facility] CenterIkqvshcKPAWRTJKUUPZ7883-14-55 18:27:00 Test Item Value Reference Range Interpretation Comments Creatinine Lvl (test code = Creatinine 8.49 0.50-1.40 Lvl) [facility] CenterOxsbkusRTDXZRLXOVMY7828-54-88 18:27:00 Test Item Value Reference Range Interpretation Comments Sodium Lvl (test code = Sodium Lvl) 137 135-145 [facility] CenterannURINALYSIS WITH [id number] 06:31:00 Test Item Value Reference Range Interpretation [...] code = USPERM) /HPF NONE BASIC METABOLIC [id number] 04:20:00 Test Item Value Reference Range Interpretation [...] = 09D) 7.8 mg/dL 8.3-9.5 L CARDIAC [id number] 04:14:00 Test Item Value Reference Range Interpretation [...] MORPH (test code = RBCMOR) NORMAL CARDIAC [id number] 21:34:00 Test Item Value Reference Range Interpretation Comments TROPONIN I (test code = A84) <0.015 ng/mL 0.000-0.045 CKMB (test code = A49) 1.3 ng/mL <=3.6 CPK (test code = 32A) 50 IU/L 39-308 U/S CAROTID COLOR DOPPLER [id number] 21:13:04Examination: Bilateral carotid Doppler ultrasoundLocation code: [id number]: NoneTechnique:Clinicalhistory is remarkable for dizziness, giddiness. Real-time [...] present, no hemodynamicallysignificant stenosis identified.CT HEAD W/O BDTUEVKS5781-28-23 14:56:12CT Brain without contrast.Location code:[id number] HISTORY: [id number]: Chest painComparison: NoneTechnique: Routine unenhanced CT brain [...] otherwise no acuteintracranial abnormality. Old right thalamic infarct.COMPREHENSIVE METABOLIC [id number] 14:42:00 Test Item Value Reference Range Interpretation [...] (test code = 31A) 23 IU/L <=78 AMYLASE AND [id number] 14:42:00 Test Item Value Reference Range Interpretation Comments AMYLASE (test code = 10A) 68 U/L 28-100 LIPASE (test code = 60A) 130 IU/L 73-393 PRO TIME AND [id number] 14:41:00 Test Item Value Reference Range Interpretation [...] Code is ANTI-XA XR CHEST 1 VIEW [id number] 14:38:47EXAMINATION: XR CHEST 1 VIEW PORTABLE.LOCATION: D4.HISTORY: Chest pain, dizziness.COMPARISON: None.FI NDINGS:Examination is limited due to portable technique, patient body habitus and lowlung volumes.Cardiac silhouette/Mediastinal contour: Prominence of cardiac silhouette. Lungs: No focal consolidation. No large pleural effusion. Pulmonary vascularcongestion.Osseous Structures: Mild degenerative changes of thoracic spine.IMPRESSION: Limited study, pulmonary vascular congestion.DRUGS OF [id number] 14:36:00 Test Item Value Reference Range Interpretation [...] (test code = RBCMOR) [facility] RE[facility]ENCE LAB [id number] 19:22:00 Test Item Value Reference Range Interpretation Comments Test Name (test code = HLA TYPING RESULTS Test Name) [facility] [id number] 19:22:00 Test Item Value Reference Range Interpretation Comments Test Name (test code = HLA TYPING RESULTS Test Name) [facility] [id number] 19:22:00 Test Item Value Reference Range Interpretation Comments Test Name (test code = HLA TYPING RESULTS Test Name) [facility] [id number] 19:22:00 Test Item Value Reference Range Interpretation Comments Test Name (test code = HLA TYPING RESULTS Test Name) [facility] [id number] 16:20:00 Test Item Value Reference Range Interpretation Comments eGFR (test code = eGFR) 12 [facility]2018-04-05 16:20:00 Test Item Value Reference Range Interpretation Comments POC Hematocrit (test code = POC 30.0 42.0-54.0 Hematocrit) [facility]2018-04-05 16:20:00 Test Item Value Reference Range Interpretation Comments POC Creatinine (test code = POC 5.0 0.5-1.4 Creatinine) [facility]2018-04-05 16:20:00 Test Item Value Reference Range Interpretation Comments POC Hemoglobin (test code = POC 10.2 14.0-18.0 Hemoglobin) [facility]2018-04-05 16:20:00 Test Item Value Reference Range Interpretation Comments POC Carbon Dioxide (test code = POC 24 24-32 Carbon Dioxide) [facility]2018-04-05 16:20:00 Test Item Value Reference Range Interpretation Comments POC BUN (test code = POC BUN) 22 7-22 [facility]2018-04-05 16:20:00 Test Item Value Reference Range Interpretation Comments POC Glucose (test code = POC Glucose) 96 70-99 [facility]2018-04-05 16:20:00 Test Item Value Reference Range Interpretation Comments POC Ion Ca (test code = POC Ion Ca) 1.06 1.05-1.25 [facility]2018-04-05 16:20:00 Test Item Value Reference Range Interpretation Comments POC AGAP (test code = POC AGAP) 16.0 10.0-20.0 [facility]2018-04-05 16:20:00 Test Item Value Reference Range Interpretation Comments POC Potassium (test code = POC 4.2 3.5-5.1 Potassium) [facility]2018-04-05 16:20:00 Test Item Value Reference Range Interpretation Comments POC Chloride (test code = POC Chloride) 103 95-109 [facility]2018-04-05 16:20:00 Test Item Value Reference Range Interpretation Comments POC Sodium (test code = POC Sodium) 137 135-145 [facility]2018-04-05 16:20:00 Test Item Value Reference Range Interpretation Comments eGFR (test code = eGFR) 12 [facility]2018-04-05 16:20:00 Test Item Value Reference Range Interpretation Comments POC Hematocrit (test code = POC 30.0 42.0-54.0 Hematocrit) [facility]2018-04-05 16:20:00 Test Item Value Reference Range Interpretation Comments POC Creatinine (test code = POC 5.0 0.5-1.4 Creatinine) [facility]2018-04-05 16:20:00 Test Item Value Reference Range Interpretation Comments POC Hemoglobin (test code = POC 10.2 14.0-18.0 Hemoglobin) [facility]2018-04-05 16:20:00 Test Item Value Reference Range Interpretation Comments POC Carbon Dioxide (test code = POC 24 24-32 Carbon Dioxide) [facility]2018-04-05 16:20:00 Test Item Value Reference Range Interpretation Comments POC BUN (test code = POC BUN) 22 7-22 [facility]2018-04-05 16:20:00 Test Item Value Reference Range Interpretation Comments POC Glucose (test code = POC Glucose) 96 70-99 [facility]2018-04-05 16:20:00 Test Item Value Reference Range Interpretation Comments POC Ion Ca (test code = POC Ion Ca) 1.06 1.05-1.25 [facility]2018-04-05 16:20:00 Test Item Value Reference Range Interpretation Comments POC AGAP (test code = POC AGAP) 16.0 10.0-20.0 [facility]2018-04-05 16:20:00 Test Item Value Reference Range Interpretation Comments POC Potassium (test code = POC 4.2 3.5-5.1 Potassium) [place]388-04-05 16:20:00 Test Item Value Reference Range Interpretation Comments POC Chloride (test code = POC Chloride) 103 95-109 [facility]2018-04-05 16:20:00 Test Item Value Reference Range Interpretation Comments POC Sodium (test code = POC Sodium) 137 135-145 [facility]2018-04-05 16:20:00 Test Item Value Reference Range Interpretation Comments eGFR (test code = eGFR) 12 [facility]2018-04-05 16:20:00 Test Item Value Reference Range Interpretation Comments POC Hematocrit (test code = POC 30.0 42.0-54.0 Hematocrit) [facility]2018-04-05 16:20:00 Test Item Value Reference Range Interpretation Comments POC Creatinine (test code = POC 5.0 0.5-1.4 Creatinine) [facility]2018-04-05 16:20:00 Test Item Value Reference Range Interpretation Comments POC Hemoglobin (test code = POC 10.2 14.0-18.0 Hemoglobin) [facility]2018-04-05 16:20:00 Test Item Value Reference Range Interpretation Comments POC Carbon Dioxide (test code = POC 24 24-32 Carbon Dioxide) [facility]2018-04-05 16:20:00 Test Item Value Reference Range Interpretation Comments POC BUN (test code = POC BUN) 22 7-22 [facility]2018-04-05 16:20:00 Test Item Value Reference Range Interpretation Comments POC Glucose (test code = POC Glucose) 96 70-99 [facility]2018-04-05 16:20:00 Test Item Value Reference Range Interpretation Comments POC Ion Ca (test code = POC Ion Ca) 1.06 1.05-1.25 [facility]2018-04-05 16:20:00 Test Item Value Reference Range Interpretation Comments POC AGAP (test code = POC AGAP) 16.0 10.0-20.0 [facility]2018-04-05 16:20:00 Test Item Value Reference Range Interpretation Comments POC Potassium (test code = POC 4.2 3.5-5.1 Potassium) [facility]2018-04-05 16:20:00 Test Item Value Reference Range Interpretation Comments POC Chloride (test code = POC Chloride) 103 95-109 [facility]2018-04-05 16:20:00 Test Item Value Reference Range Interpretation Comments POC Sodium (test code = POC Sodium) 137 135-145 [facility]2018-04-05 16:20:00 Test Item Value Reference Range Interpretation Comments eGFR (test code = eGFR) 12 [facility]2018-04-05 16:20:00 Test Item Value Reference Range Interpretation Comments POC Hematocrit (test code = POC 30.0 42.0-54.0 Hematocrit) [facility]2018-04-05 16:20:00 Test Item Value Reference Range Interpretation Comments POC Creatinine (test code = POC 5.0 0.5-1.4 Creatinine) [facility]2018-04-05 16:20:00 Test Item Value Reference Range Interpretation Comments POC Hemoglobin (test code = POC 10.2 14.0-18.0 Hemoglobin) [facility]2018-04-05 16:20:00 Test Item Value Reference Range Interpretation Comments POC Carbon Dioxide (test code = POC 24 24-32 Carbon Dioxide) [facility]2018-04-05 16:20:00 Test Item Value Reference Range Interpretation Comments POC BUN (test code = POC BUN) 22 7-22 [facility]2018-04-05 16:20:00 Test Item Value Reference Range Interpretation Comments POC Glucose (test code = POC Glucose) 96 70-99 [facility]2018-04-05 16:20:00 Test Item Value Reference Range Interpretation Comments POC Ion Ca (test code = POC Ion Ca) 1.06 1.05-1.25 [facility]2018-04-05 16:20:00 Test Item Value Reference Range Interpretation Comments POC AGAP (test code = POC AGAP) 16.0 10.0-20.0 [facility]2018-04-05 16:20:00 Test Item Value Reference Range Interpretation Comments POC Potassium (test code = POC 4.2 3.5-5.1 Potassium) [facility]2018-04-05 16:20:00 Test Item Value Reference Range Interpretation Comments POC Chloride (test code = POC Chloride) 103 95-109 [facility]2018-04-05 16:20:00 Test Item Value Reference Range Interpretation Comments POC Sodium (test code = POC Sodium) 137 135-145 [facility]2018-04-05 11:56:00 Test Item Value Reference Range Interpretation Comments eGFR (test code = eGFR) 12 [facility]2018-04-05 11:56:00 Test Item Value Reference Range Interpretation Comments POC Creatinine (test code = POC 5.0 0.5-1.4 Creatinine) [facility]2018-04-05 11:56:00 Test Item Value Reference Range Interpretation Comments POC Glucose (test code = POC Glucose) 109 70-99 [facility]2018-04-05 11:56:00 Test Item Value Reference Range Interpretation Comments POC BUN (test code = POC BUN) 22 7-22 [facility]2018-04-05 11:56:00 Test Item Value Reference Range Interpretation Comments POC Ion Ca (test code = POC Ion Ca) 1.08 1.05-1.25 [facility]2018-04-05 11:56:00 Test Item Value Reference Range Interpretation Comments POC AGAP (test code = POC AGAP) 18.0 10.0-20.0 [facility]2018-04-05 11:56:00 Test Item Value Reference Range Interpretation Comments POC Hemoglobin (test code = POC 11.9 14.0-18.0 Hemoglobin) [facility]2018-04-05 11:56:00 Test Item Value Reference Range Interpretation Comments POC Hematocrit (test code = POC 35.0 42.0-54.0 Hematocrit) [facility]2018-04-05 11:56:00 Test Item Value Reference Range Interpretation Comments POC Chloride (test code = POC Chloride) 103 95-109 [facility]2018-04-05 11:56:00 Test Item Value Reference Range Interpretation Comments POC Sodium (test code = POC Sodium) 139 135-145 [facility]2018-04-05 11:56:00 Test Item Value Reference Range Interpretation Comments POC Potassium (test code = POC 3.7 3.5-5.1 Potassium) [facility]2018-04-05 11:56:00 Test Item Value Reference Range Interpretation Comments POC Carbon Dioxide (test code = POC 22 24-32 Carbon Dioxide) [facility]2018-04-05 11:56:00 Test Item Value Reference Range Interpretation Comments eGFR (test code = eGFR) 12 [facility]2018-04-05 11:56:00 Test Item Value Reference Range Interpretation Comments POC Creatinine (test code = POC 5.0 0.5-1.4 Creatinine) [facility]2018-04-05 11:56:00 Test Item Value Reference Range Interpretation Comments POC Glucose (test code = POC Glucose) 109 70-99 [facility]2018-04-05 11:56:00 Test Item Value Reference Range Interpretation Comments POC BUN (test code = POC BUN) 22 7-22 [facility]2018-04-05 11:56:00 Test Item Value Reference Range Interpretation Comments POC Ion Ca (test code = POC Ion Ca) 1.08 1.05-1.25 [facility]2018-04-05 11:56:00 Test Item Value Reference Range Interpretation Comments POC AGAP (test code = POC AGAP) 18.0 10.0-20.0 [facility]2018-04-05 11:56:00 Test Item Value Reference Range Interpretation Comments POC Hemoglobin (test code = POC 11.9 14.0-18.0 Hemoglobin) [facility]2018-04-05 11:56:00 Test Item Value Reference Range Interpretation Comments POC Hematocrit (test code = POC 35.0 42.0-54.0 Hematocrit) [facility]2018-04-05 11:56:00 Test Item Value Reference Range Interpretation Comments POC Chloride (test code = POC Chloride) 103 95-109 [facility]2018-04-05 11:56:00 Test Item Value Reference Range Interpretation Comments POC Sodium (test code = POC Sodium) 139 135-145 [facility]2018-04-05 11:56:00 Test Item Value Reference Range Interpretation Comments POC Potassium (test code = POC 3.7 3.5-5.1 Potassium) [facility]2018-04-05 11:56:00 Test Item Value Reference Range Interpretation Comments POC Carbon Dioxide (test code = POC 22 24-32 Carbon Dioxide) [facility]2018-04-05 11:56:00 Test Item Value Reference Range Interpretation Comments eGFR (test code = eGFR) 12 [facility]2018-04-05 11:56:00 Test Item Value Reference Range Interpretation Comments POC Creatinine (test code = POC 5.0 0.5-1.4 Creatinine) [facility]2018-04-05 11:56:00 Test Item Value Reference Range Interpretation Comments POC Glucose (test code = POC Glucose) 109 70-99 [facility]2018-04-05 11:56:00 Test Item Value Reference Range Interpretation Comments POC BUN (test code = POC BUN) 22 7-22 [facility]2018-04-05 11:56:00 Test Item Value Reference Range Interpretation Comments POC Ion Ca (test code = POC Ion Ca) 1.08 1.05-1.25 [facility]2018-04-05 11:56:00 Test Item Value Reference Range Interpretation Comments POC AGAP (test code = POC AGAP) 18.0 10.0-20.0 [facility]2018-04-05 11:56:00 Test Item Value Reference Range Interpretation Comments POC Hemoglobin (test code = POC 11.9 14.0-18.0 Hemoglobin) [facility]2018-04-05 11:56:00 Test Item Value Reference Range Interpretation Comments POC Hematocrit (test code = POC 35.0 42.0-54.0 Hematocrit) [facility]2018-04-05 11:56:00 Test Item Value Reference Range Interpretation Comments POC Chloride (test code = POC Chloride) 103 95-109 [facility]2018-04-05 11:56:00 Test Item Value Reference Range Interpretation Comments POC Sodium (test code = POC Sodium) 139 135-145 [facility]2018-04-05 11:56:00 Test Item Value Reference Range Interpretation Comments POC Potassium (test code = POC 3.7 3.5-5.1 Potassium) [facility]2018-04-05 11:56:00 Test Item Value Reference Range Interpretation Comments POC Carbon Dioxide (test code = POC 22 24-32 Carbon Dioxide) [facility]2018-04-05 11:56:00 Test Item Value Reference Range Interpretation Comments eGFR (test code = eGFR) 12 [facility]2018-04-05 11:56:00 Test Item Value Reference Range Interpretation Comments POC Creatinine (test code = POC 5.0 0.5-1.4 Creatinine) [facility]2018-04-05 11:56:00 Test Item Value Reference Range Interpretation Comments POC Glucose (test code = POC Glucose) 109 70-99 [facility]2018-04-05 11:56:00 Test Item Value Reference Range Interpretation Comments POC BUN (test code = POC BUN) 22 7-22 [facility]2018-04-05 11:56:00 Test Item Value Reference Range Interpretation Comments POC Ion Ca (test code = POC Ion Ca) 1.08 1.05-1.25 [facility]2018-04-05 11:56:00 Test Item Value Reference Range Interpretation Comments POC AGAP (test code = POC AGAP) 18.0 10.0-20.0 [facility]2018-04-05 11:56:00 Test Item Value Reference Range Interpretation Comments POC Hemoglobin (test code = POC 11.9 14.0-18.0 Hemoglobin) [facility]2018-04-05 11:56:00 Test Item Value Reference Range Interpretation Comments POC Hematocrit (test code = POC 35.0 42.0-54.0 Hematocrit) [facility]2018-04-05 11:56:00 Test Item Value Reference Range Interpretation Comments POC Chloride (test code = POC Chloride) 103 95-109 [facility]2018-04-05 11:56:00 Test Item Value Reference Range Interpretation Comments POC Sodium (test code = POC Sodium) 139 135-145 [facility]2018-04-05 11:56:00 Test Item Value Reference Range Interpretation Comments POC Potassium (test code = POC 3.7 3.5-5.1 Potassium) [facility]2018-04-05 11:56:00 Test Item Value Reference Range Interpretation Comments POC Carbon Dioxide (test code = POC 22 24-32 Carbon Dioxide) [facility]2018-02-15 21:17:00 Test Item Value Reference Range Interpretation Comments POC Ion Ca (test code = POC Ion Ca) 1.05 1.05-1.25 [facility]2018-02-15 21:17:00 Test Item Value Reference Range Interpretation Comments POC Hemoglobin (test code = POC 11.6 14.0-18.0 Hemoglobin) [facility]2018-02-15 21:17:00 Test Item Value Reference Range Interpretation Comments POC AGAP (test code = POC AGAP) 18.0 10.0-20.0 [facility]2018-02-15 21:17:00 Test Item Value Reference Range Interpretation Comments POC Glucose (test code = POC Glucose) 88 70-99 [facility]2018-02-15 21:17:00 Test Item Value Reference Range Interpretation Comments POC Hematocrit (test code = POC 34.0 42.0-54.0 Hematocrit) [facility]2018-02-15 21:17:00 Test Item Value Reference Range Interpretation Comments POC Carbon Dioxide (test code = POC 24 24-32 Carbon Dioxide) [facility]2018-02-15 21:17:00 Test Item Value Reference Range Interpretation Comments POC Potassium (test code = POC 4.2 3.5-5.1 Potassium) [facility]2018-02-15 21:17:00 Test Item Value Reference Range Interpretation Comments POC Creatinine (test code = POC 6.2 0.5-1.4 Creatinine) [facility]2018-02-15 21:17:00 Test Item Value Reference Range Interpretation Comments POC BUN (test code = POC BUN) 27 7-22 [facility]2018-02-15 21:17:00 Test Item Value Reference Range Interpretation Comments POC Chloride (test code = POC Chloride) 103 95-109 [facility]2018-02-15 21:17:00 Test Item Value Reference Range Interpretation Comments POC Sodium (test code = POC Sodium) 139 135-145 [facility]2018-02-15 21:17:00 Test Item Value Reference Range Interpretation Comments eGFR (test code = eGFR) 9 [facility]2018-02-15 21:17:00 Test Item Value Reference Range Interpretation Comments POC Ion Ca (test code = POC Ion Ca) 1.05 1.05-1.25 [facility]2018-02-15 21:17:00 Test Item Value Reference Range Interpretation Comments POC Hemoglobin (test code = POC 11.6 14.0-18.0 Hemoglobin) [facility]2018-02-15 21:17:00 Test Item Value Reference Range Interpretation Comments POC AGAP (test code = POC AGAP) 18.0 10.0-20.0 [facility]2018-02-15 21:17:00 Test Item Value Reference Range Interpretation Comments POC Glucose (test code = POC Glucose) 88 70-99 [facility]2018-02-15 21:17:00 Test Item Value Reference Range Interpretation Comments POC Hematocrit (test code = POC 34.0 42.0-54.0 Hematocrit) [facility]2018-02-15 21:17:00 Test Item Value Reference Range Interpretation Comments POC Carbon Dioxide (test code = POC 24 24-32 Carbon Dioxide) [facility]2018-02-15 21:17:00 Test Item Value Reference Range Interpretation Comments POC Potassium (test code = POC 4.2 3.5-5.1 Potassium) [facility]2018-02-15 21:17:00 Test Item Value Reference Range Interpretation Comments POC Creatinine (test code = POC 6.2 0.5-1.4 Creatinine) [facility]2018-02-15 21:17:00 Test Item Value Reference Range Interpretation Comments POC BUN (test code = POC BUN) 27 7-22 [facility]2018-02-15 21:17:00 Test Item Value Reference Range Interpretation Comments POC Chloride (test code = POC Chloride) 103 95-109 [facility]2018-02-15 21:17:00 Test Item Value Reference Range Interpretation Comments POC Sodium (test code = POC Sodium) 139 135-145 [facility]2018-02-15 21:17:00 Test Item Value Reference Range Interpretation Comments eGFR (test code = eGFR) 9 [facility]2018-02-15 21:17:00 Test Item Value Reference Range Interpretation Comments POC Ion Ca (test code = POC Ion Ca) 1.05 1.05-1.25 [facility]2018-02-15 21:17:00 Test Item Value Reference Range Interpretation Comments POC Hemoglobin (test code = POC 11.6 14.0-18.0 Hemoglobin) [facility]2018-02-15 21:17:00 Test Item Value Reference Range Interpretation Comments POC AGAP (test code = POC AGAP) 18.0 10.0-20.0 [facility]2018-02-15 21:17:00 Test Item Value Reference Range Interpretation Comments POC Glucose (test code = POC Glucose) 88 70-99 [facility]2018-02-15 21:17:00 Test Item Value Reference Range Interpretation Comments POC Hematocrit (test code = POC 34.0 42.0-54.0 Hematocrit) [facility]2018-02-15 21:17:00 Test Item Value Reference Range Interpretation Comments POC Carbon Dioxide (test code = POC 24 24-32 Carbon Dioxide) [facility]2018-02-15 21:17:00 Test Item Value Reference Range Interpretation Comments POC Potassium (test code = POC 4.2 3.5-5.1 Potassium) [facility]2018-02-15 21:17:00 Test Item Value Reference Range Interpretation Comments POC Creatinine (test code = POC 6.2 0.5-1.4 Creatinine) [facility]2018-02-15 21:17:00 Test Item Value Reference Range Interpretation Comments POC BUN (test code = POC BUN) 27 7-22 [facility]2018-02-15 21:17:00 Test Item Value Reference Range Interpretation Comments POC Chloride (test code = POC Chloride) 103 95-109 [facility]2018-02-15 21:17:00 Test Item Value Reference Range Interpretation Comments POC Sodium (test code = POC Sodium) 139 135-145 [facility]2018-02-15 21:17:00 Test Item Value Reference Range Interpretation Comments eGFR (test code = eGFR) 9 [facility]2018-02-15 21:17:00 Test Item Value Reference Range Interpretation Comments POC Ion Ca (test code = POC Ion Ca) 1.05 1.05-1.25 [facility]2018-02-15 21:17:00 Test Item Value Reference Range Interpretation Comments POC Hemoglobin (test code = POC 11.6 14.0-18.0 Hemoglobin) [facility]2018-02-15 21:17:00 Test Item Value Reference Range Interpretation Comments POC AGAP (test code = POC AGAP) 18.0 10.0-20.0 [facility]2018-02-15 21:17:00 Test Item Value Reference Range Interpretation Comments POC Glucose (test code = POC Glucose) 88 70-99 [facility]2018-02-15 21:17:00 Test Item Value Reference Range Interpretation Comments POC Hematocrit (test code = POC 34.0 42.0-54.0 Hematocrit) [place] 604388-02-15 21:17:00 Test Item Value Reference Range Interpretation Comments POC Carbon Dioxide (test code = POC 24 24-32 Carbon Dioxide) [facility]2018-02-15 21:17:00 Test Item Value Reference Range Interpretation Comments POC Potassium (test code = POC 4.2 3.5-5.1 Potassium) [facility]2018-02-15 21:17:00 Test Item Value Reference Range Interpretation Comments POC Creatinine (test code = POC 6.2 0.5-1.4 Creatinine) [facility]2018-02-15 21:17:00 Test Item Value Reference Range Interpretation Comments POC BUN (test code = POC BUN) 04-19 [facility]2018-02-15 21:17:00 Test Item Value Reference Range Interpretation Comments POC Chloride (test code = POC Chloride) 103 95-109 [facility]2018-02-15 21:17:00 Test Item Value Reference Range Interpretation Comments POC Sodium (test code = POC Sodium) 139 135-145 [facility]2018-02-15 21:17:00 Test Item Value Reference Range Interpretation Comments eGFR (test code = eGFR) 9 [facility]2018-02-15 17:38:00 Test Item Value Reference Range Interpretation Comments eGFR (test code = eGFR) 9 [facility]2018-02-15 17:38:00 Test Item Value Reference Range Interpretation Comments POC Glucose (test code = POC Glucose) 108 70-99 [facility]2018-02-15 17:38:00 Test Item Value Reference Range Interpretation Comments POC Hematocrit (test code = POC 39.0 42.0-54.0 Hematocrit) [facility]2018-02-15 17:38:00 Test Item Value Reference Range Interpretation Comments POC Hemoglobin (test code = POC 13.3 14.0-18.0 Hemoglobin) [facility]2018-02-15 17:38:00 Test Item Value Reference Range Interpretation Comments POC Creatinine (test code = POC 6.2 0.5-1.4 Creatinine) [facility]2018-02-15 17:38:00 Test Item Value Reference Range Interpretation Comments POC BUN (test code = POC BUN) 24 04- [facility]2018-02-15 17:38:00 Test Item Value Reference Range Interpretation Comments POC Ion Ca (test code = POC Ion Ca) 1.13 1.05-1.25 [facility]2018-02-15 17:38:00 Test Item Value Reference Range Interpretation Comments POC AGAP (test code = POC AGAP) 17.0 10.0-20.0 [facility]2018-02-15 17:38:00 Test Item Value Reference Range Interpretation Comments POC Potassium (test code = POC 3.9 3.5-5.1 Potassium) [facility]2018-02-15 17:38:00 Test Item Value Reference Range Interpretation Comments POC Chloride (test code = POC Chloride) 103 95-109 [facility]2018-02-15 17:38:00 Test Item Value Reference Range Interpretation Comments POC Carbon Dioxide (test code = POC 23 24-32 Carbon Dioxide) [facility]2018-02-15 17:38:00 Test Item Value Reference Range Interpretation Comments POC Sodium (test code = POC Sodium) 138 135-145 [facility]2018-02-15 17:38:00 Test Item Value Reference Range Interpretation Comments eGFR (test code = eGFR) 9 [facility]2018-02-15 17:38:00 Test Item Value Reference Range Interpretation Comments POC Glucose (test code = POC Glucose) 108 70-99 [facility]2018-02-15 17:38:00 Test Item Value Reference Range Interpretation Comments POC Hematocrit (test code = POC 39.0 42.0-54.0 Hematocrit) [facility]2018-02-15 17:38:00 Test Item Value Reference Range Interpretation Comments POC Hemoglobin (test code = POC 13.3 14.0-18.0 Hemoglobin) [facility]2018-02-15 17:38:00 Test Item Value Reference Range Interpretation Comments POC Creatinine (test code = POC 6.2 0.5-1.4 Creatinine) [facility]2018-02-15 17:38:00 Test Item Value Reference Range Interpretation Comments POC BUN (test code = POC BUN) 27 7-22 [facility]2018-02-15 17:38:00 Test Item Value Reference Range Interpretation Comments POC Ion Ca (test code = POC Ion Ca) 1.13 1.05-1.25 [facility]2018-02-15 17:38:00 Test Item Value Reference Range Interpretation Comments POC AGAP (test code = POC AGAP) 17.0 10.0-20.0 [facility]2018-02-15 17:38:00 Test Item Value Reference Range Interpretation Comments POC Potassium (test code = POC 3.9 3.5-5.1 Potassium) [facility]2018-02-15 17:38:00 Test Item Value Reference Range Interpretation Comments POC Chloride (test code = POC Chloride) 103 95-109 [facility]2018-02-15 17:38:00 Test Item Value Reference Range Interpretation Comments POC Carbon Dioxide (test code = POC 23 24-32 Carbon Dioxide) [facility]2018-02-15 17:38:00 Test Item Value Reference Range Interpretation Comments POC Sodium (test code = POC Sodium) 138 135-145 [facility]2018-02-15 17:38:00 Test Item Value Reference Range Interpretation Comments eGFR (test code = eGFR) 9 [facility]2018-02-15 17:38:00 Test Item Value Reference Range Interpretation Comments POC Glucose (test code = POC Glucose) 108 70-99 [facility]2018-02-15 17:38:00 Test Item Value Reference Range Interpretation Comments POC Hematocrit (test code = POC 39.0 42.0-54.0 Hematocrit) [facility]2018-02-15 17:38:00 Test Item Value Reference Range Interpretation Comments POC Hemoglobin (test code = POC 13.3 14.0-18.0 Hemoglobin) [facility]2018-02-15 17:38:00 Test Item Value Reference Range Interpretation Comments POC Creatinine (test code = POC 6.2 0.5-1.4 Creatinine) [facility]2018-02-15 17:38:00 Test Item Value Reference Range Interpretation Comments POC BUN (test code = POC BUN) 27 7-22 [facility]2018-02-15 17:38:00 Test Item Value Reference Range Interpretation Comments POC Ion Ca (test code = POC Ion Ca) 1.13 1.05-1.25 [facility]2018-02-15 17:38:00 Test Item Value Reference Range Interpretation Comments POC AGAP (test code = POC AGAP) 17.0 10.0-20.0 [facility]2018-02-15 17:38:00 Test Item Value Reference Range Interpretation Comments POC Potassium (test code = POC 3.9 3.5-5.1 Potassium) [facility]2018-02-15 17:38:00 Test Item Value Reference Range Interpretation Comments POC Chloride (test code = POC Chloride) 103 95-109 [facility]2018-02-15 17:38:00 Test Item Value Reference Range Interpretation Comments POC Carbon Dioxide (test code = POC 23 24-32 Carbon Dioxide) [facility]2018-02-15 17:38:00 Test Item Value Reference Range Interpretation Comments POC Sodium (test code = POC Sodium) 138 135-145 [facility]2018-02-15 17:38:00 Test Item Value Reference Range Interpretation Comments eGFR (test code = eGFR) 9 [facility]2018-02-15 17:38:00 Test Item Value Reference Range Interpretation Comments POC Glucose (test code = POC Glucose) 108 70-99 [facility]2018-02-15 17:38:00 Test Item Value Reference Range Interpretation Comments POC Hematocrit (test code = POC 39.0 42.0-54.0 Hematocrit) [facility]2018-02-15 17:38:00 Test Item Value Reference Range Interpretation Comments POC Hemoglobin (test code = POC 13.3 14.0-18.0 Hemoglobin) [facility]2018-02-15 17:38:00 Test Item Value Reference Range Interpretation Comments POC Creatinine (test code = POC 6.2 0.5-1.4 Creatinine) [facility]2018-02-15 17:38:00 Test Item Value Reference Range Interpretation Comments POC BUN (test code = POC BUN) 27 7-22 [facility]2018-02-15 17:38:00 Test Item Value Reference Range Interpretation Comments POC Ion Ca (test code = POC Ion Ca) 1.13 1.05-1.25 [facility]2018-02-15 17:38:00 Test Item Value Reference Range Interpretation Comments POC AGAP (test code = POC AGAP) 17.0 10.0-20.0 [facility]2018-02-15 17:38:00 Test Item Value Reference Range Interpretation Comments POC Potassium (test code = POC 3.9 3.5-5.1 Potassium) [facility]2018-02-15 17:38:00 Test Item Value Reference Range Interpretation Comments POC Chloride (test code = POC Chloride) 103 95-109 [facility]2018-02-15 17:38:00 Test Item Value Reference Range Interpretation Comments POC Carbon Dioxide (test code = POC 23 24-32 Carbon Dioxide) [facility]2018-02-15 17:38:00 Test Item Value Reference Range Interpretation Comments POC Sodium (test code = POC Sodium) 138 135-145 [facility]HwicsjkDLAYECSJIL7407-95-50 17:16:00 Test Item Value Reference Range Interpretation Comments POC Hematocrit (test code = POC 34.0 42.0-54.0 Hematocrit) [facility] CenterYqqwbjqVQKXPQOQMK5523-61-20 17:16:00 Test Item Value Reference Range Interpretation Comments POC Potassium (test code = POC 4.3 3.5-5.1 Potassium) [facility] CenterZwzulltQVBSOGYIBH0015-03-33 17:16:00 Test Item Value Reference Range Interpretation Comments POC Sodium (test code = POC Sodium) 140 135-145 [facility] CenterEfccpxrBXNHCQIVYE5206-36-79 17:16:00 Test Item Value Reference Range Interpretation Comments POC Chloride (test code = POC Chloride) 106 95-109 [facility] CenterNxngjdwPNHFXHLVAA6611-88-89 17:16:00 Test Item Value Reference Range Interpretation Comments POC Glucose (test code = POC Glucose) 118 70-99 [facility] CenterRorryhhKULWAGKKRT1078-70-06 17:16:00 Test Item Value Reference Range Interpretation Comments POC BUN (test code = POC BUN) 21 7-22 [facility] CenterOujblgwTBBEFMVLEC0008-93-82 17:16:00 Test Item Value Reference Range Interpretation Comments POC Hemoglobin (test code = POC 11.6 14.0-18.0 Hemoglobin) [facility] CenterZwrxwtsFWMGZCJAFI1035-97-00 17:16:00 Test Item Value Reference Range Interpretation Comments POC Hematocrit (test code = POC 34.0 42.0-54.0 Hematocrit) [facility] CenterNsujmtbLLVNSKCNAJ8145-36-27 17:16:00 Test Item Value Reference Range Interpretation Comments POC Potassium (test code = POC 4.3 3.5-5.1 Potassium) [facility] CenterXjaibobNFKZRQSRGS7980-63-26 17:16:00 Test Item Value Reference Range Interpretation Comments POC Sodium (test code = POC Sodium) 140 135-145 [facility] CenterQwtuiftRYZIHCBYBU8437-93-49 17:16:00 Test Item Value Reference Range Interpretation Comments POC Chloride (test code = POC Chloride) 106 95-109 [facility] CenterCtpvwfkSSASXLSXED5560-40-05 17:16:00 Test Item Value Reference Range Interpretation Comments POC Glucose (test code = POC Glucose) 118 70-99 [facility] CenterAsqqqifEYQSIGQJDN4736-52-81 17:16:00 Test Item Value Reference Range Interpretation Comments POC BUN (test code = POC BUN) 04-19 [facility] CenterZnxwergKEWEHCDCXV6803-36-05 17:16:00 Test Item Value Reference Range Interpretation Comments POC Hemoglobin (test code = POC 11.6 14.0-18.0 Hemoglobin) [facility] CenterQobkqlnHAUJUZMOLB7774-29-07 17:16:00 Test Item Value Reference Range Interpretation Comments POC Hematocrit (test code = POC 34.0 42.0-54.0 Hematocrit) [facility] CenterRucbctpESUCNJWFDK0020-09-73 17:16:00 Test Item Value Reference Range Interpretation Comments POC Potassium (test code = POC 4.3 3.5-5.1 Potassium) [facility] CenterZxunjzmELCMZRMVCS0747-84-62 17:16:00 Test Item Value Reference Range Interpretation Comments POC Sodium (test code = POC Sodium) 140 135-145 [facility] CenterSlfvhmuXTVBUSOVVZ7218-15-45 17:16:00 Test Item Value Reference Range Interpretation Comments POC Chloride (test code = POC Chloride) 106 95-109 [facility] CenterJqlltieGILVGBFLXB9695-25-76 17:16:00 Test Item Value Reference Range Interpretation Comments POC Glucose (test code = POC Glucose) 118 70-99 [facility] CenterWskllaeSAYHMLCNCM7608-87-73 17:16:00 Test Item Value Reference Range Interpretation Comments POC BUN (test code = POC BUN) 04-19 [facility] CenterHzndstoPDNWWSFZQT4717-95-07 17:16:00 Test Item Value Reference Range Interpretation Comments POC Hemoglobin (test code = POC 11.6 14.0-18.0 Hemoglobin) [facility] CenterGemjamqKLUSXBKMRD4856-21-70 17:16:00 Test Item Value Reference Range Interpretation Comments POC Hematocrit (test code = POC 34.0 42.0-54.0 Hematocrit) [facility] CenterLydwogtROIHISYSFH4367-91-44 17:16:00 Test Item Value Reference Range Interpretation Comments POC Potassium (test code = POC 4.3 3.5-5.1 Potassium) [facility] CenterZzxyyzhJVITXSSMDS9660-30-98 17:16:00 Test Item Value Reference Range Interpretation Comments POC Sodium (test code = POC Sodium) 140 135-145 [facility] CenterYnwrfclTSZJCVTERR8781-17-85 17:16:00 Test Item Value Reference Range Interpretation Comments POC Chloride (test code = POC Chloride) 106 95-109 [facility] CenterYvuufmyOBJGRWJFXA3586-59-10 17:16:00 Test Item Value Reference Range Interpretation Comments POC Glucose (test code = POC Glucose) 118 70-99 [facility] CenterGndnpjcZVWZPYLECO6977-51-11 17:16:00 Test Item Value Reference Range Interpretation Comments POC BUN (test code = POC BUN) 04-19 [facility] CenterXrtvmufJJFMKBPDMW1518-15-80 17:16:00 Test Item Value Reference Range Interpretation Comments POC Hemoglobin (test code = POC 11.6 14.0-18.0 Hemoglobin) [facility] CenterWfkriqbEJCLJQZSUK3858-04-04 12:26:00 Test Item Value Reference Range Interpretation Comments POC Hematocrit (test code = POC 39.0 42.0-54.0 Hematocrit) [facility] CenterMzxzejpUEDCGQGVAZ7602-98-96 12:26:00 Test Item Value Reference Range Interpretation Comments POC Hemoglobin (test code = POC 13.3 14.0-18.0 Hemoglobin) [facility] CenterKnvlkvwBGBAAWEVRG2786-00-58 12:26:00 Test Item Value Reference Range Interpretation Comments POC BUN (test code = POC BUN) 04-19 [facility] CenterUkitsskODNFMDFSFM1373-85-75 12:26:00 Test Item Value Reference Range Interpretation Comments POC Glucose (test code = POC Glucose) 108 70-99 [facility] CenterIbvglsbHBMLQQQHGV4664-93-27 12:26:00 Test Item Value Reference Range Interpretation Comments POC Sodium (test code = POC Sodium) 139 135-145 [facility] CenterCemjsicNTIZFDLRIH7691-00-08 12:26:00 Test Item Value Reference Range Interpretation Comments POC Chloride (test code = POC Chloride) 105 95-109 [facility] CenterPzxsnymLCVNOKDMXA2663-70-18 12:26:00 Test Item Value Reference Range Interpretation Comments POC Potassium (test code = POC 4.2 3.5-5.1 Potassium) [facility] CenterOqxrfowCICJDVJENZ7255-21-42 12:26:00 Test Item Value Reference Range Interpretation Comments POC Hematocrit (test code = POC 39.0 42.0-54.0 Hematocrit) [facility] CenterAnoaqfvFOLGGMYLSM8263-94-10 12:26:00 Test Item Value Reference Range Interpretation Comments POC Hemoglobin (test code = POC 13.3 14.0-18.0 Hemoglobin) [facility] CenterBhzrfarVOXWJQVUVG3885-55-33 12:26:00 Test Item Value Reference Range Interpretation Comments POC BUN (test code = POC BUN) 04-19 [facility] CenterNbtoopnWNIEEZWZEV5112-73-96 12:26:00 Test Item Value Reference Range Interpretation Comments POC Glucose (test code = POC Glucose) 108 70-99 [facility] CenterRdwhaziXDEOMJFBKN4803-93-73 12:26:00 Test Item Value Reference Range Interpretation Comments POC Sodium (test code = POC Sodium) 139 135-145 [facility] CenterPvdlaniCBPDUGEBTL9975-35-18 12:26:00 Test Item Value Reference Range Interpretation Comments POC Chloride (test code = POC Chloride) 105 95-109 [facility] CenterVbelzaaLGWUAXFVRE1334-32-68 12:26:00 Test Item Value Reference Range Interpretation Comments POC Potassium (test code = POC 4.2 3.5-5.1 Potassium) [facility] CenterNaijsftMEHPIPGZXY4612-55-37 12:26:00 Test Item Value Reference Range Interpretation Comments POC Hematocrit (test code = POC 39.0 42.0-54.0 Hematocrit) [facility] CenterOvqromoXGMTJXTRBD1407-76-86 12:26:00 Test Item Value Reference Range Interpretation Comments POC Hemoglobin (test code = POC 13.3 14.0-18.0 Hemoglobin) [facility] CenterFawoyznJEZWHCQEJQ7845-98-06 12:26:00 Test Item Value Reference Range Interpretation Comments POC BUN (test code = POC BUN) 04-19 [facility] CenterFzemgkoHPEWRSPIOO8614-20-52 12:26:00 Test Item Value Reference Range Interpretation Comments POC Glucose (test code = POC Glucose) 108 70-99 [facility] CenterFlyswxnFHXZLEZWRY1667-96-08 12:26:00 Test Item Value Reference Range Interpretation Comments POC Sodium (test code = POC Sodium) 139 135-145 [facility] CenterFvwwbfoWKIHGSIRCN7498-08-27 12:26:00 Test Item Value Reference Range Interpretation Comments POC Chloride (test code = POC Chloride) 105 95-109 [facility] CenterBtrgdutMDXFGULUTC5910-74-95 12:26:00 Test Item Value Reference Range Interpretation Comments POC Potassium (test code = POC 4.2 3.5-5.1 Potassium) [facility] CenterFqzwdieNSRLKLWABY7378-92-21 12:26:00 Test Item Value Reference Range Interpretation Comments POC Hematocrit (test code = POC 39.0 42.0-54.0 Hematocrit) [facility] CenterOpvajycALPAHMNDRJ8741-45-89 12:26:00 Test Item Value Reference Range Interpretation Comments POC Hemoglobin (test code = POC 13.3 14.0-18.0 Hemoglobin) [facility] CenterWivffgxRXLOGVPILA1808-36-59 12:26:00 Test Item Value Reference Range Interpretation Comments POC BUN (test code = POC BUN) 22 7-22 [facility] CenterWfoiuizHBDHVHLKNC3817-03-44 12:26:00 Test Item Value Reference Range Interpretation Comments POC Glucose (test code = POC Glucose) 108 70-99 [facility] CenterHfnjtvfXBPMWHMUNB5080-45-11 12:26:00 Test Item Value Reference Range Interpretation Comments POC Sodium (test code = POC Sodium) 139 135-145 [facility] CenterTpoysloDPSWBQVBVP8254-13-78 12:26:00 Test Item Value Reference Range Interpretation Comments POC Chloride (test code = POC Chloride) 105 95-109 [facility] CenterZwcfkyiBWRFMRAMTL0632-98-87 12:26:00 Test Item Value Reference Range Interpretation Comments POC Potassium (test code = POC 4.2 3.5-5.1 Potassium) [facility] CenterIjiyxprPXFSXOJIUC1101-66-86 18:25:00 Test Item Value Reference Range Interpretation Comments POC Hematocrit (test code = POC 30.0 42.0-54.0 Hematocrit) [facility] CenterHzklcinZWMWGVTKMX6512-77-23 18:25:00 Test Item Value Reference Range Interpretation Comments POC Hemoglobin (test code = POC 10.2 14.0-18.0 Hemoglobin) [facility] CenterFhshgjaIKHGGEJZTS2674-01-10 18:25:00 Test Item Value Reference Range Interpretation Comments POC Glucose (test code = POC Glucose) 94 70-99 [facility] CenterSnqwpxxDFNSGEGPUK0215-59-98 18:25:00 Test Item Value Reference Range Interpretation Comments POC Chloride (test code = POC Chloride) 103 95-109 [facility] CenterPjdxygqKWULRYVIJM2030-50-87 18:25:00 Test Item Value Reference Range Interpretation Comments POC Sodium (test code = POC Sodium) 135 135-145 [facility] CenterKepapuqKHWWLNGGJP8571-43-00 18:25:00 Test Item Value Reference Range Interpretation Comments POC Potassium (test code = POC 5.5 3.5-5.1 Potassium) [facility] CenterNlblhjtFHJOIDOQFY6759-49-85 18:25:00 Test Item Value Reference Range Interpretation Comments POC BUN (test code = POC BUN) 16 - [facility] CenterDyjqmiyVRHICNJZPY5657-52-86 18:25:00 Test Item Value Reference Range Interpretation Comments POC Hematocrit (test code = POC 30.0 42.0-54.0 Hematocrit) [facility] CenterCjnvbncXRXGBHOIUO4437-42-50 18:25:00 Test Item Value Reference Range Interpretation Comments POC Hemoglobin (test code = POC 10.2 14.0-18.0 Hemoglobin) [facility] CenterTnfvzhoMBPDWNCNXY5635-03-73 18:25:00 Test Item Value Reference Range Interpretation Comments POC Glucose (test code = POC Glucose) 94 70-99 [facility] CenterFlevxlfEKCICJSHLS7039-96-11 18:25:00 Test Item Value Reference Range Interpretation Comments POC Chloride (test code = POC Chloride) 103 95-109 [facility] CenterNbxbyyuQZVXCGFQGD5025-19-56 18:25:00 Test Item Value Reference Range Interpretation Comments POC Sodium (test code = POC Sodium) 135 135-145 [facility] CenterBvdsthsDWRLJPGVNV9321-51-60 18:25:00 Test Item Value Reference Range Interpretation Comments POC Potassium (test code = POC 5.5 3.5-5.1 Potassium) [facility] CenterSpavcclYKRHQTAHUN7147-77-49 18:25:00 Test Item Value Reference Range Interpretation Comments POC BUN (test code = POC BUN) 04-19 [facility] CenterErocugoJAMWSUBPQX2005-74-25 18:25:00 Test Item Value Reference Range Interpretation Comments POC Hematocrit (test code = POC 30.0 42.0-54.0 Hematocrit) [facility] CenterQqkrxkqASAJHFVUMK1337-55-74 18:25:00 Test Item Value Reference Range Interpretation Comments POC Hemoglobin (test code = POC 10.2 14.0-18.0 Hemoglobin) [facility] CenterDprdwgjDVRJYRYILT2634-45-44 18:25:00 Test Item Value Reference Range Interpretation Comments POC Glucose (test code = POC Glucose) 94 70-99 [facility] CenterEqozaxmQLCKQEEGUI9928-23-56 18:25:00 Test Item Value Reference Range Interpretation Comments POC Chloride (test code = POC Chloride) 103 95-109 [facility] CenterYecjgstQUZNUJEEBZ5190-01-21 18:25:00 Test Item Value Reference Range Interpretation Comments POC Sodium (test code = POC Sodium) 135 135-145 [facility] CenterNzlulbuVGLPRWOGYD8761-80-20 18:25:00 Test Item Value Reference Range Interpretation Comments POC Potassium (test code = POC 5.5 3.5-5.1 Potassium) [facility] CenterLeqqnzpRKBHCGIJGC1332-87-26 18:25:00 Test Item Value Reference Range Interpretation Comments POC BUN (test code = POC BUN) 04-19 [facility] CenterGwfgoiqGVTRTNVMTL5129-36-33 18:25:00 Test Item Value Reference Range Interpretation Comments POC Hematocrit (test code = POC 30.0 42.0-54.0 Hematocrit) [facility] CenterRnitjurLHLKYBBLYA6703-63-34 18:25:00 Test Item Value Reference Range Interpretation Comments POC Hemoglobin (test code = POC 10.2 14.0-18.0 Hemoglobin) [facility] CenterObfkwyoQGEFAUBLWX7138-58-11 18:25:00 Test Item Value Reference Range Interpretation Comments POC Glucose (test code = POC Glucose) 94 70-99 [facility] CenterFumehxnRXWYLYJPBY2776-75-56 18:25:00 Test Item Value Reference Range Interpretation Comments POC Chloride (test code = POC Chloride) 103 95-109 [facility] CenterRykbeylQNDGDSBEDI3695-04-59 18:25:00 Test Item Value Reference Range Interpretation Comments POC Sodium (test code = POC Sodium) 135 135-145 [facility] CenterGvjtwubATEKZMAAGP1942-81-67 18:25:00 Test Item Value Reference Range Interpretation Comments POC Potassium (test code = POC 5.5 3.5-5.1 Potassium) [facility] CenterOpowbljFMAFSAWQXL5362-76-77 18:25:00 Test Item Value Reference Range Interpretation Comments POC BUN (test code = POC BUN) 04-19 [facility]NxlbpzvHUJVZGHWYTEA1434-19-82 15:01:00 Test Item Value Reference Range Interpretation Comments POC Sodium (test code = POC Sodium) 135 135-145 [facility] HealthcareRleirmtVEOPPGAGTFPW1205-04-30 15:01:00 Test Item Value Reference Range Interpretation Comments POC Hematocrit (test code = POC 31.0 42.0-54.0 Hematocrit) [facility]NnplddpGZGAJHJAMFHB0910-80-66 15:01:00 Test Item Value Reference Range Interpretation Comments POC Hemoglobin (test code = POC 10.5 14.0-18.0 Hemoglobin) [facility] HealthcareZkhkrlrZKSJYYVBRBWI3471-98-28 15:01:00 Test Item Value Reference Range Interpretation Comments POC Chloride (test code = POC Chloride) 101 95-109 [facility]IwqdruoBWKMRMEFLNSB0544-49-07 15:01:00 Test Item Value Reference Range Interpretation Comments POC Potassium (test code = POC 4.7 3.5-5.1 Potassium) [facility] HealthcareNkjbetlFRXVIVBVXJTA4459-84-60 15:01:00 Test Item Value Reference Range Interpretation Comments POC Glucose (test code = POC Glucose) 94 70-99 [facility] HealthcareRjcdidqZBVAAFWGKQEO3861-29-04 15:01:00 Test Item Value Reference Range Interpretation Comments POC BUN (test code = POC BUN) 04-19 [facility] HealthcareHjlnhhkRMUTXTYGARGC5330-73-02 15:01:00 Test Item Value Reference Range Interpretation Comments POC Sodium (test code = POC Sodium) 135 135-145 [facility]NlwnvznQZCMXZQGMSNW4591-23-76 15:01:00 Test Item Value Reference Range Interpretation Comments POC Hematocrit (test code = POC 31.0 42.0-54.0 Hematocrit) [facility] HealthcareAkklilbVTCMWJTEBSUN5100-29-18 15:01:00 Test Item Value Reference Range Interpretation Comments POC Hemoglobin (test code = POC 10.5 14.0-18.0 Hemoglobin) [facility] HealthcareRmpvbluOKAWAZLSCGLE9898-85-60 15:01:00 Test Item Value Reference Range Interpretation Comments POC Chloride (test code = POC Chloride) 101 95-109 [facility] HealthcareTpubhndKYMBUHMOBIEA8717-65-84 15:01:00 Test Item Value Reference Range Interpretation Comments POC Potassium (test code = POC 4.7 3.5-5.1 Potassium) [facility]NclvvbxLVTHWUOOBNEJ2862-33-37 15:01:00 Test Item Value Reference Range Interpretation Comments POC Glucose (test code = POC Glucose) 94 70-99 [facility] HealthcareMcsdmayDDJCFHKXMXJJ1339-47-99 15:01:00 Test Item Value Reference Range Interpretation Comments POC BUN (test code = POC BUN) 04-19 [facility] HealthcareKvzrflgNYSAQYLVYVIE9589-26-60 15:01:00 Test Item Value Reference Range Interpretation Comments POC Sodium (test code = POC Sodium) 135 135-145 [facility] HealthcareEcgtoxvTJDJTDIZUBTS1340-67-47 15:01:00 Test Item Value Reference Range Interpretation Comments POC Hematocrit (test code = POC 31.0 42.0-54.0 Hematocrit) [facility] HealthcareZrxkqsxLFDVDJCBLTZZ6122-17-00 15:01:00 Test Item Value Reference Range Interpretation Comments POC Hemoglobin (test code = POC 10.5 14.0-18.0 Hemoglobin) [facility] HealthcareGqdwujjDAYCOVUHHJUB7109-30-36 15:01:00 Test Item Value Reference Range Interpretation Comments POC Chloride (test code = POC Chloride) 101 95-109 [facility] HealthcareYazjbkvNWDQMYDIZXEM6096-82-63 15:01:00 Test Item Value Reference Range Interpretation Comments POC Potassium (test code = POC 4.7 3.5-5.1 Potassium) [facility] HealthcareBychgwnTHPBLOGIYXRE6683-73-38 15:01:00 Test Item Value Reference Range Interpretation Comments POC Glucose (test code = POC Glucose) 94 70-99 [facility] HealthcareNlkvhtjBFWFBHFKYBXU1562-48-78 15:01:00 Test Item Value Reference Range Interpretation Comments POC BUN (test code = POC BUN) 04-19 [facility] HealthcareYsxqjynULVKYQFMMEGV1497-08-86 15:01:00 Test Item Value Reference Range Interpretation Comments POC Sodium (test code = POC Sodium) 135 135-145 [facility] HealthcareMobubgaBPKMNQUICSXM5274-98-44 15:01:00 Test Item Value Reference Range Interpretation Comments POC Hematocrit (test code = POC 31.0 42.0-54.0 Hematocrit) [facility] HealthcareUoxzxiaAXNBSDIOXPXS0298-99-45 15:01:00 Test Item Value Reference Range Interpretation Comments POC Hemoglobin (test code = POC 10.5 14.0-18.0 Hemoglobin) [facility] HealthcareTbamjtwBUZLYSQAVUNL8672-67-26 15:01:00 Test Item Value Reference Range Interpretation Comments POC Chloride (test code = POC Chloride) 101 95-109 [facility] HealthcareHyrlfanRMKRUTELGNSY0982-64-96 15:01:00 Test Item Value Reference Range Interpretation Comments POC Potassium (test code = POC 4.7 3.5-5.1 Potassium) [facility] HealthcareJvstcjfMZVAGYIGUNJA9026-54-85 15:01:00 Test Item Value Reference Range Interpretation Comments POC Glucose (test code = POC Glucose) 94 70-99 [facility] HealthcareWvmdfolUBRLSGGMTEWT8450-34-82 15:01:00 Test Item Value Reference Range Interpretation Comments POC BUN (test code = POC BUN) [facility]JNCVZDDST2486-68-25 21:42:00 Test Item Value Reference Range Interpretation Comments Hep B Core Ab (test Negative *NA*(04/10/17 code = Hep B Core Ab) 4:42 PM) [facility]KzzyzjkFIOXUVUFAF8095-33-84 21:42:00 Test Item Value Reference Range Interpretation Comments Hep Bs Ag (test code Negative *NA*(04/10/17 = Hep Bs Ag) 4:42 PM) [facility]KjmcqjeCRGGSBZWZI8501-98-37 21:42:00 Test Item Value Reference Range Interpretation Comments Hep C Ab (test code = Positive *ABN*(04/10/17 Hep C Ab) 4:42 PM) [facility]ArpklwfWBISMACGXS2235-70-52 21:42:00 Test Item Value Reference Range Interpretation Comments Hep Bs Ab (test code = Hep Bs Ab) no gt [facility]AjvmtbgVRINHMWBIY7633-67-28 21:42:00 Test Item Value Reference Range Interpretation Comments Hep B Core Ab (test Negative *NA*(04/10/17 code = Hep B Core Ab) 4:42 PM) [facility]BuvxsghORJNTFCBIH3910-64-97 21:42:00 Test Item Value Reference Range Interpretation Comments Hep Bs Ag (test code Negative *NA*(04/10/17 = Hep Bs Ag) 4:42 PM) [facility]DjnoknfYPRSJWZIXV2557-70-14 21:42:00 Test Item Value Reference Range Interpretation Comments Hep C Ab (test code = Positive *ABN*(04/10/17 Hep C Ab) 4:42 PM) [facility]DhfknhqFTJRTGPUVB4834-50-28 21:42:00 Test Item Value Reference Range Interpretation Comments Hep Bs Ab (test code = Hep Bs Ab) no gt [facility]BwdmorwMTTUPBYNQQ3594-27-69 21:42:00 Test Item Value Reference Range Interpretation Comments Hep B Core Ab (test Negative *NA*(04/10/17 code = Hep B Core Ab) 4:42 PM) [facility]YckzjepBWIQDLBIXV9603-01-22 21:42:00 Test Item Value Reference Range Interpretation Comments Hep Bs Ag (test code Negative *NA*(04/10/17 = Hep Bs Ag) 4:42 PM) [facility]HirqwpyAZHWXDZHWJ9091-78-74 21:42:00 Test Item Value Reference Range Interpretation Comments Hep C Ab (test code = Positive *ABN*(04/10/17 Hep C Ab) 4:42 PM) [facility]SivovhlFTWTHGSHTM6211-13-38 21:42:00 Test Item Value Reference Range Interpretation Comments Hep Bs Ab (test code = Hep Bs Ab) no gt [facility] [place]MbdmnudXLYHGPHYMS8636-84-76 21:42:00 Test Item Value Reference Range Interpretation Comments Hep B Core Ab (test Negative *NA*(04/10/17 code = Hep B Core Ab) 4:42 PM) [facility]WzsoqlfWLWUOWFNAW7218-47-65 21:42:00 Test Item Value Reference Range Interpretation Comments Hep Bs Ag (test code Negative *NA*(04/10/17 = Hep Bs Ag) 4:42 PM) [facility]McarfnlSKVEEIXEEA7721-14-74 21:42:00 Test Item Value Reference Range Interpretation Comments Hep C Ab (test code = Positive *ABN*(04/10/17 Hep C Ab) 4:42 PM) [facility]FlgjwrmLOGRFUBDOX5010-59-62 21:42:00 Test Item Value Reference Range Interpretation Comments Hep Bs Ab (test code = Hep Bs Ab) no gt [facility]2017-07-13 00:27:00 Test Item Value Reference Range Interpretation Comments eGFR (test code = eGFR) 5 [facility]2017-07-13 00:27:00 Test Item Value Reference Range Interpretation Comments Glucose Lvl (test code = Glucose Lvl) 90 70-99 [facility]2017-07-13 00:27:00 Test Item Value Reference Range Interpretation Comments BUN (test code = BUN) 66 7-22 [facility]2017-07-13 00:27:00 Test Item Value Reference Range Interpretation Comments Creatinine Lvl (test code = Creatinine 10.00 0.50-1.40 Lvl) [facility]2017-07-13 00:27:00 Test Item Value Reference Range Interpretation Comments Sodium Lvl (test code = Sodium Lvl) 136 135-145 [facility]2017-07-13 00:27:00 Test Item Value Reference Range Interpretation Comments ALT (test code = ALT) 23 See_Comment [Auto mated message] The system which ge nerated this result transmit cruz reference range : <=65. The reference range was not used to interpr et this result as gee l/abnormal. [facility]2017-07-13 00:27:00 Test Item Value Reference Range Interpretation Comments Alk Phos (test code = Alk Phos) 140 39-136 [facility]2017-07-13 00:27:00 Test Item Value Reference Range Interpretation Comments AST (test code = AST) 10 See_Comment [Auto mated message] The system which ge nerated this result transmit cruz reference range : <=37. The reference range was not used to interpr et this result as gee l/abnormal. [facility]2017-07-13 00:27:00 Test Item Value Reference Range Interpretation Comments Bili Total (test code = Bili Total) 0.2 0.2-1.3 [facility]2017-07-13 00:27:00 Test Item Value Reference Range Interpretation Comments Chloride Lvl (test code = Chloride Lvl) 104 95-109 [facility]2017-07-13 00:27:00 Test Item Value Reference Range Interpretation Comments Potassium Lvl (test code = Potassium 4.6 3.5-5.1 Lvl) [facility]2017-07-13 00:27:00 Test Item Value Reference Range Interpretation Comments CO2 (test code = CO2) 20 24-32 [facility]2017-07-13 00:27:00 Test Item Value Reference Range Interpretation Comments Calcium Lvl (test code = Calcium Lvl) 8.1 8.5-10.5 [facility]2017-07-13 00:27:00 Test Item Value Reference Range Interpretation Comments Total Protein (test code = Total 8.0 6.4-8.4 Protein) [facility]2017-07-13 00:27:00 Test Item Value Reference Range Interpretation Comments Albumin Lvl (test code = Albumin Lvl) 3.4 3.5-5.0 [facility]2017-07-13 00:27:00 Test Item Value Reference Range Interpretation Comments AGAP (test code = AGAP) 16.6 10.0-20.0 [facility]2017-07-13 00:27:00 Test Item Value Reference Range Interpretation Comments B/C Ratio (test code = B/C Ratio) 7 6-25 [facility]2017-07-13 00:27:00 Test Item Value Reference Range Interpretation Comments Globulin (test code = Globulin) 4.6 2.7-4.2 [facility]2017-07-13 00:27:00 Test Item Value Reference Range Interpretation Comments A/G Ratio (test code = A/G Ratio) 0.7 0.7-1.6 [facility]VjabvpiSBDRZASKHG1161-28-57 [facility]:27:00 Test Item Value Reference Range Interpretation Comments MPV (test code = MPV) 9.3 7.4-10.4 [facility] CenterKvzbdubMXTGWUYXFH6332-93-33 00:27:00 Test Item Value Reference Range Interpretation Comments Hct (test code = Hct) 32.4 42.0-54.0 [facility] CenterBbgbtphFKSDAJYWWC5204-86-16 00:27:00 Test Item Value Reference Range Interpretation Comments MCV (test code = MCV) 88.9 80.0-94.0 [facility] CenterWidbkzbZGTZGXEJWG1733-02-95 00:27:00 Test Item Value Reference Range Interpretation Comments MCH (test code = MCH) 29.5 pg 27.0-31.0 [facility] CenterGkvpyjqCCOKHYIYDN6865-54-34 00:27:00 Test Item Value Reference Range Interpretation Comments Platelet (test code = Platelet) 216 133-450 [facility] CenterCciplrcZNPNDSEEIZ6803-53-09 00:27:00 Test Item Value Reference Range Interpretation Comments MCHC (test code = MCHC) 33.1 32.0-36.0 [facility] CenterAqbhcrkSDXVRJVMXN4673-18-21 00:27:00 Test Item Value Reference Range Interpretation Comments RDW (test code = RDW) 12.6 11.5-14.5 [facility] CenterPcdmszxEWVHEIDLIF0236-38-31 00:27:00 Test Item Value Reference Range Interpretation Comments Hgb (test code = Hgb) 10.7 14.0-18.0 [facility] CenterEkeempzASLJCZIRYB8584-70-98 00:27:00 Test Item Value Reference Range Interpretation Comments RBC (test code = RBC) 3.65 4.70-6.10 [facility] CenterLmdnlxiVMKXKDSRBP5505-02-79 00:27:00 Test Item Value Reference Range Interpretation Comments WBC (test code = WBC) 8.8 3.7-10.4 [facility] CenterNaijsfoZRDTUGQFTG7121-84-12 00:27:00 Test Item Value Reference Range Interpretation Comments Basophils # (test code 0.0 See_Comment [Aut omated message] The = Basophils #) system which generated this result tra nsmitted reference range : <=0.2. The reference r jillian was not used to int erpret this result as normal/abnormal . [facility] CenterAlmdtrtGPAJXEPOPQ8866-78-09 00:27:00 Test Item Value Reference Range Interpretation Comments Eosinophils # (test code 0.1 See_Comment [A utomated message] The = Eosinophils #) system whic h generated this result tra nsmitted reference range : <=0.5. The reference r jillian was not used to int erpret this result as normal/abnormal . [facility] CenterGwrsbfbAETOKXIWOY1108-36-96 00:27:00 Test Item Value Reference Range Interpretation Comments Monocytes # (test code 0.5 See_Comment [Aut omated message] The = Monocytes #) system which generated this result tra nsmitted reference range : <=0.8. The reference r jillian was not used to int erpret this result as normal/abnormal . [facility] CenterXpavrwaQJXSBGUDKS6811-26-89 00:27:00 Test Item Value Reference Range Interpretation Comments Lymphocytes # (test code = Lymphocytes 1.3 1.0-5.5 #) [facility] CenterLnmqqwoATBXECUPYX2135-19-49 00:27:00 Test Item Value Reference Range Interpretation Comments Segs (test code = Segs) 78.2 45.0-75.0 [facility] CenterHgzoobgTSTZKAKSHG3116-23-99 00:27:00 Test Item Value Reference Range Interpretation Comments Lymphocytes (test code = Lymphocytes) 14.8 20.0-40.0 [facility] CenterQfupfpfTXKCXWLXBH8970-40-73 00:27:00 Test Item Value Reference Range Interpretation Comments Monocytes (test code = Monocytes) 5.8 2.0-12.0 [facility] CenterTfocqbnZCTOYUGOVZ3258-19-28 00:27:00 Test Item Value Reference Range Interpretation Comments Segs-Bands # (test code = Segs-Bands #) 6.8 1.5-8.1 [facility] CenterQibhztnADOEDAIGLI8107-50-28 00:27:00 Test Item Value Reference Range Interpretation Comments Basophils (test code = 0.3 See_Comment [Aut omated message] The Basophils) system which ge nerated this result tra nsmitted reference range : <=1.0. The reference r jillian was not used to int erpret this result as normal/abnormal . [facility] CenterVvhbdubEYUQXWUEMS4069-73-51 00:27:00 Test Item Value Reference Range Interpretation Comments Eosinophils (test code = 0.9 See_Comment [A utomated message] The Eosinophils) system which ge nerated this result tra nsmitted reference range : <=4.0. The reference r jillian was not used to int erpret this result as normal/abnormal . [facility]2017-07-13 00:27:00 Test Item Value Reference Range Interpretation Comments eGFR (test code = eGFR) 5 [facility]2017-07-13 00:27:00 Test Item Value Reference Range Interpretation Comments Glucose Lvl (test code = Glucose Lvl) 90 70-99 [facility]2017-07-13 00:27:00 Test Item Value Reference Range Interpretation Comments BUN (test code = BUN) 66 7-22 [facility]2017-07-13 00:27:00 Test Item Value Reference Range Interpretation Comments Creatinine Lvl (test code = Creatinine 10.00 0.50-1.40 Lvl) [facility]2017-07-13 00:27:00 Test Item Value Reference Range Interpretation Comments Sodium Lvl (test code = Sodium Lvl) 136 135-145 [facility]2017-07-13 00:27:00 Test Item Value Reference Range Interpretation Comments ALT (test code = ALT) 23 See_Comment [Auto mated message] The system which ge nerated this result transmit cruz reference range : <=65. The reference range was not used to interpr et this result as gee l/abnormal. [facility]2017-07-13 00:27:00 Test Item Value Reference Range Interpretation Comments Alk Phos (test code = Alk Phos) 140 39-136 [facility]2017-07-13 00:27:00 Test Item Value Reference Range Interpretation Comments AST (test code = AST) 10 See_Comment [Auto mated message] The system which ge nerated this result transmit cruz reference range : <=37. The reference range was not used to interpr et this result as gee l/abnormal. [facility]2017-07-13 00:27:00 Test Item Value Reference Range Interpretation Comments Bili Total (test code = Bili Total) 0.2 0.2-1.3 [place] 604387-07-13 00:27:00 Test Item Value Reference Range Interpretation Comments Chloride Lvl (test code = Chloride Lvl) 104 95-109 [facility]2017-07-13 00:27:00 Test Item Value Reference Range Interpretation Comments Potassium Lvl (test code = Potassium 4.6 3.5-5.1 Lvl) [facility]2017-07-13 00:27:00 Test Item Value Reference Range Interpretation Comments CO2 (test code = CO2) 20 24-32 [facility]2017-07-13 00:27:00 Test Item Value Reference Range Interpretation Comments Calcium Lvl (test code = Calcium Lvl) 8.1 8.5-10.5 [facility]2017-07-13 00:27:00 Test Item Value Reference Range Interpretation Comments Total Protein (test code = Total 8.0 6.4-8.4 Protein) [facility]2017-07-13 00:27:00 Test Item Value Reference Range Interpretation Comments Albumin Lvl (test code = Albumin Lvl) 3.4 3.5-5.0 [facility]2017-07-13 00:27:00 Test Item Value Reference Range Interpretation Comments AGAP (test code = AGAP) 16.6 10.0-20.0 [facility]2017-07-13 00:27:00 Test Item Value Reference Range Interpretation Comments B/C Ratio (test code = B/C Ratio) 7 6-25 [facility]2017-07-13 00:27:00 Test Item Value Reference Range Interpretation Comments Globulin (test code = Globulin) 4.6 2.7-4.2 [facility]2017-07-13 00:27:00 Test Item Value Reference Range Interpretation Comments A/G Ratio (test code = A/G Ratio) 0.7 0.7-1.6 [facility] CenterLcyyyhaVCSUCMEZUD6541-44-04 00:27:00 Test Item Value Reference Range Interpretation Comments MPV (test code = MPV) 9.3 7.4-10.4 [facility] CenterIyxncsrWCTTNPUXNM3580-70-13 00:27:00 Test Item Value Reference Range Interpretation Comments Hct (test code = Hct) 32.4 42.0-54.0 [facility] CenterQmujbcwJULFAGUFPQ6566-63-72 00:27:00 Test Item Value Reference Range Interpretation Comments MCV (test code = MCV) 88.9 80.0-94.0 [facility] CenterGwmjpvnPEZEWGDRJD6561-04-30 00:27:00 Test Item Value Reference Range Interpretation Comments MCH (test code = MCH) 29.5 pg 27.0-31.0 [facility] CenterCkzlzkeAZRZRUJGUB6999-50-52 00:27:00 Test Item Value Reference Range Interpretation Comments Platelet (test code = Platelet) 216 133-450 [facility] CenterXxpzvogMHTHXIHVWC5302-69-17 00:27:00 Test Item Value Reference Range Interpretation Comments MCHC (test code = MCHC) 33.1 32.0-36.0 [facility] CenterUlgmskyIFQXMWKDGB8634-09-47 00:27:00 Test Item Value Reference Range Interpretation Comments RDW (test code = RDW) 12.6 11.5-14.5 [facility] CenterOjqzglaULTBOQXQHJ0456-50-54 00:27:00 Test Item Value Reference Range Interpretation Comments Hgb (test code = Hgb) 10.7 14.0-18.0 [facility] CenterZytfciqNWCSDPVRAA1881-20-96 00:27:00 Test Item Value Reference Range Interpretation Comments RBC (test code = RBC) 3.65 4.70-6.10 [facility] CenterLmjuohpDKBDNCECSS9039-01-30 00:27:00 Test Item Value Reference Range Interpretation Comments WBC (test code = WBC) 8.8 3.7-10.4 [facility] CenterRmahzekCNQUFUWFCM9872-06-73 00:27:00 Test Item Value Reference Range Interpretation Comments Basophils # (test code 0.0 See_Comment [Aut omated message] The = Basophils #) system which generated this result tra nsmitted reference range : <=0.2. The reference r jillian was not used to int erpret this result as normal/abnormal . [facility] CenterTicbksxVFONZVMTCB4507-43-37 00:27:00 Test Item Value Reference Range Interpretation Comments Eosinophils # (test code 0.1 See_Comment [A utomated message] The = Eosinophils #) system whic h generated this result tra nsmitted reference range : <=0.5. The reference r jillian was not used to int erpret this result as normal/abnormal . [facility] CenterCxqocicEQDQWNTZSF5811-13-01 00:27:00 Test Item Value Reference Range Interpretation Comments Monocytes # (test code 0.5 See_Comment [Aut omated message] The = Monocytes #) system which generated this result tra nsmitted reference range : <=0.8. The reference r jillian was not used to int erpret this result as normal/abnormal . [facility] CenterYammioeEAQOLRUIXV3113-71-22 00:27:00 Test Item Value Reference Range Interpretation Comments Lymphocytes # (test code = Lymphocytes 1.3 1.0-5.5 #) [facility] CenterWopmepxNWLJSMADMI2337-82-78 00:27:00 Test Item Value Reference Range Interpretation Comments Segs (test code = Segs) 78.2 45.0-75.0 [facility] CenterZnfgqxnMGLCOEHREP4020-98-54 00:27:00 Test Item Value Reference Range Interpretation Comments Lymphocytes (test code = Lymphocytes) 14.8 20.0-40.0 [facility] CenterXqtgfgfERSQBGXQNI3573-70-94 00:27:00 Test Item Value Reference Range Interpretation Comments Monocytes (test code = Monocytes) 5.8 2.0-12.0 [facility] CenterTmcnnfrBDUGRPGEMA4043-33-46 00:27:00 Test Item Value Reference Range Interpretation Comments Segs-Bands # (test code = Segs-Bands #) 6.8 1.5-8.1 [facility] CenterInfuagzTOHFRUELYP3022-93-18 00:27:00 Test Item Value Reference Range Interpretation Comments Basophils (test code = 0.3 See_Comment [Aut omated message] The Basophils) system which ge nerated this result tra nsmitted reference range : <=1.0. The reference r jillian was not used to int erpret this result as normal/abnormal . [facility] CenterNwrvltcUUCDKAOFCS1310-57-88 00:27:00 Test Item Value Reference Range Interpretation Comments Eosinophils (test code = 0.9 See_Comment [A utomated message] The Eosinophils) system which ge nerated this result tra nsmitted reference range : <=4.0. The reference r jillian was not used to int erpret this result as normal/abnormal . [facility]2017-07-13 00:27:00 Test Item Value Reference Range Interpretation Comments eGFR (test code = eGFR) 5 [facility]2017-07-13 00:27:00 Test Item Value Reference Range Interpretation Comments Glucose Lvl (test code = Glucose Lvl) 90 70-99 [facility]2017-07-13 00:27:00 Test Item Value Reference Range Interpretation Comments BUN (test code = BUN) 66 7-22 [facility]2017-07-13 00:27:00 Test Item Value Reference Range Interpretation Comments Creatinine Lvl (test code = Creatinine 10.00 0.50-1.40 Lvl) [facility]2017-07-13 00:27:00 Test Item Value Reference Range Interpretation Comments Sodium Lvl (test code = Sodium Lvl) 136 135-145 [facility]2017-07-13 00:27:00 Test Item Value Reference Range Interpretation Comments ALT (test code = ALT) 23 See_Comment [Auto mated message] The system which ge nerated this result transmit cruz reference range : <=65. The reference range was not used to interpr et this result as gee l/abnormal. [facility]2017-07-13 00:27:00 Test Item Value Reference Range Interpretation Comments Alk Phos (test code = Alk Phos) 140 39-136 [facility]2017-07-13 00:27:00 Test Item Value Reference Range Interpretation Comments AST (test code = AST) 10 See_Comment [Auto mated message] The system which ge nerated this result transmit cruz reference range : <=37. The reference range was not used to interpr et this result as gee l/abnormal. [facility]2017-07-13 00:27:00 Test Item Value Reference Range Interpretation Comments Bili Total (test code = Bili Total) 0.2 0.2-1.3 [facility]2017-07-13 00:27:00 Test Item Value Reference Range Interpretation Comments Chloride Lvl (test code = Chloride Lvl) 104 95-109 [facility]2017-07-13 00:27:00 Test Item Value Reference Range Interpretation Comments Potassium Lvl (test code = Potassium 4.6 3.5-5.1 Lvl) [facility]2017-07-13 00:27:00 Test Item Value Reference Range Interpretation Comments CO2 (test code = CO2) 20 24-32 [facility]2017-07-13 00:27:00 Test Item Value Reference Range Interpretation Comments Calcium Lvl (test code = Calcium Lvl) 8.1 8.5-10.5 [facility]2017-07-13 00:27:00 Test Item Value Reference Range Interpretation Comments Total Protein (test code = Total 8.0 6.4-8.4 Protein) [facility]2017-07-13 00:27:00 Test Item Value Reference Range Interpretation Comments Albumin Lvl (test code = Albumin Lvl) 3.4 3.5-5.0 [facility]2017-07-13 00:27:00 Test Item Value Reference Range Interpretation Comments AGAP (test code = AGAP) 16.6 10.0-20.0 [facility]2017-07-13 00:27:00 Test Item Value Reference Range Interpretation Comments B/C Ratio (test code = B/C Ratio) 7 6-25 [facility]2017-07-13 00:27:00 Test Item Value Reference Range Interpretation Comments Globulin (test code = Globulin) 4.6 2.7-4.2 [facility]2017-07-13 00:27:00 Test Item Value Reference Range Interpretation Comments A/G Ratio (test code = A/G Ratio) 0.7 0.7-1.6 [facility] CenterWdqyvrtIQOFNQHGWO4464-77-43 00:27:00 Test Item Value Reference Range Interpretation Comments MPV (test code = MPV) 9.3 7.4-10.4 [facility] CenterNmyzkwdYUVIYTUNER0656-91-33 00:27:00 Test Item Value Reference Range Interpretation Comments Hct (test code = Hct) 32.4 42.0-54.0 [facility] CenterUntfqkdJABRDOXZVR5781-22-08 00:27:00 Test Item Value Reference Range Interpretation Comments MCV (test code = MCV) 88.9 80.0-94.0 [facility] CenterKgqrbrwSOZRAOPJRQ7551-08-56 00:27:00 Test Item Value Reference Range Interpretation Comments MCH (test code = MCH) 29.5 pg 27.0-31.0 [facility] CenterPqjigxkRGKOYMQLGN4297-49-10 00:27:00 Test Item Value Reference Range Interpretation Comments Platelet (test code = Platelet) 216 133-450 [facility] CenterMtamghpKGLOTSTCGS6511-79-73 00:27:00 Test Item Value Reference Range Interpretation Comments MCHC (test code = MCHC) 33.1 32.0-36.0 [facility] CenterWdqyrmvQQAUYEJVYD4993-39-09 00:27:00 Test Item Value Reference Range Interpretation Comments RDW (test code = RDW) 12.6 11.5-14.5 [facility] CenterOtbdceaXJMSYNJTIC0655-79-67 00:27:00 Test Item Value Reference Range Interpretation Comments Hgb (test code = Hgb) 10.7 14.0-18.0 [facility] CenterApozjghMJNRKVHBDW3267-25-92 00:27:00 Test Item Value Reference Range Interpretation Comments RBC (test code = RBC) 3.65 4.70-6.10 [facility] CenterQkzlprnWUUZBILSYL8496-29-98 00:27:00 Test Item Value Reference Range Interpretation Comments WBC (test code = WBC) 8.8 3.7-10.4 [facility] CenterUxoxukqIYSFVBNCBU6981-45-33 00:27:00 Test Item Value Reference Range Interpretation Comments Basophils # (test code 0.0 See_Comment [Aut omated message] The = Basophils #) system which generated this result tra nsmitted reference range : <=0.2. The reference r jillian was not used to int erpret this result as normal/abnormal . [facility] CenterQmuqmvcYFQPPZXPNQ2250-13-62 00:27:00 Test Item Value Reference Range Interpretation Comments Eosinophils # (test code 0.1 See_Comment [A utomated message] The = Eosinophils #) system whic h generated this result tra nsmitted reference range : <=0.5. The reference r jillian was not used to int erpret this result as normal/abnormal . [facility] CenterRukbyefRFPWBPXXLB7884-09-54 00:27:00 Test Item Value Reference Range Interpretation Comments Monocytes # (test code 0.5 See_Comment [Aut omated message] The = Monocytes #) system which generated this result tra nsmitted reference range : <=0.8. The reference r jillian was not used to int erpret this result as normal/abnormal . [facility] CenterFegmzoeHZQTYOEORP9236-07-02 00:27:00 Test Item Value Reference Range Interpretation Comments Lymphocytes # (test code = Lymphocytes 1.3 1.0-5.5 #) [facility] CenterMfohiewHMDANNOAJC1571-26-61 00:27:00 Test Item Value Reference Range Interpretation Comments Segs (test code = Segs) 78.2 45.0-75.0 [place] 441647-07-13 00:27:00 Test Item Value Reference Range Interpretation Comments Lymphocytes (test code = Lymphocytes) 14.8 20.0-40.0 [facility] CenterBttxkcgEUBLPQJUOY6582-53-38 00:27:00 Test Item Value Reference Range Interpretation Comments Monocytes (test code = Monocytes) 5.8 2.0-12.0 [facility] CenterYksjkegXXOESJCHLC2591-72-50 00:27:00 Test Item Value Reference Range Interpretation Comments Segs-Bands # (test code = Segs-Bands #) 6.8 1.5-8.1 [place] 441647-07-13 00:27:00 Test Item Value Reference Range Interpretation Comments Basophils (test code = 0.3 See_Comment [Aut omated message] The Basophils) system which ge nerated this result tra nsmitted reference range : <=1.0. The reference r jillian was not used to int erpret this result as normal/abnormal . [facility] CenterSckgdmqZXEKJXQEDU0492-90-19 00:27:00 Test Item Value Reference Range Interpretation Comments Eosinophils (test code = 0.9 See_Comment [A utomated message] The Eosinophils) system which ge nerated this result tra nsmitted reference range : <=4.0. The reference r jillian was not used to int erpret this result as normal/abnormal . [facility]2017-07-13 00:27:00 Test Item Value Reference Range Interpretation Comments eGFR (test code = eGFR) 5 [facility]2017-07-13 00:27:00 Test Item Value Reference Range Interpretation Comments Glucose Lvl (test code = Glucose Lvl) 90 70-99 [facility]2017-07-13 00:27:00 Test Item Value Reference Range Interpretation Comments BUN (test code = BUN) 66 7-22 [facility]2017-07-13 00:27:00 Test Item Value Reference Range Interpretation Comments Creatinine Lvl (test code = Creatinine 10.00 0.50-1.40 Lvl) [facility]2017-07-13 00:27:00 Test Item Value Reference Range Interpretation Comments Sodium Lvl (test code = Sodium Lvl) 136 135-145 [facility]2017-07-13 00:27:00 Test Item Value Reference Range Interpretation Comments ALT (test code = ALT) 23 See_Comment [Auto mated message] The system which ge nerated this result transmit cruz reference range : <=65. The reference range was not used to interpr et this result as gee l/abnormal. [facility]2017-07-13 00:27:00 Test Item Value Reference Range Interpretation Comments Alk Phos (test code = Alk Phos) 140 39-136 [facility]PoikosCON[facility] HOSPITALIVVWZ7706-57-59 00:27:00 Test Item Value Reference Range Interpretation Comments AST (test code = AST) 10 See_Comment [Auto mated message] The system which ge nerated this result transmit cruz reference range : <=37. The reference range was not used to interpr et this result as gee l/abnormal. [facility]2017-07-13 00:27:00 Test Item Value Reference Range Interpretation Comments Bili Total (test code = Bili Total) 0.2 0.2-1.3 [facility]2017-07-13 00:27:00 Test Item Value Reference Range Interpretation Comments Chloride Lvl (test code = Chloride Lvl) 104 95-109 [facility]2017-07-13 00:27:00 Test Item Value Reference Range Interpretation Comments Potassium Lvl (test code = Potassium 4.6 3.5-5.1 Lvl) [facility]2017-07-13 00:27:00 Test Item Value Reference Range Interpretation Comments CO2 (test code = CO2) 20 24-32 [facility]2017-07-13 00:27:00 Test Item Value Reference Range Interpretation Comments Calcium Lvl (test code = Calcium Lvl) 8.1 8.5-10.5 [facility] CenterPoikosCON[facility] MOS[facility] CONE HOSPITALRJOII6595-28-04 00:27:00 Test Item Value Reference Range Interpretation Comments Total Protein (test code = Total 8.0 6.4-8.4 Protein) [facility]2017-07-13 00:27:00 Test Item Value Reference Range Interpretation Comments Albumin Lvl (test code = Albumin Lvl) 3.4 3.5-5.0 [facility] CenterPoikosCONE [facility]ALTH MOS[facility] CONE HOSPITALEWTPO1626-26-97 00:27:00 Test Item Value Reference Range Interpretation Comments AGAP (test code = AGAP) 16.6 10.0-20.0 [facility]2017-07-13 00:27:00 Test Item Value Reference Range Interpretation Comments B/C Ratio (test code = B/C Ratio) 7 6-25 [facility]2017-07-13 00:27:00 Test Item Value Reference Range Interpretation Comments Globulin (test code = Globulin) 4.6 2.7-4.2 [facility]2017-07-13 00:27:00 Test Item Value Reference Range Interpretation Comments A/G Ratio (test code = A/G Ratio) 0.7 0.7-1.6 [facility] CenterOgljtsgXNWOTIAYZD1217-59-15 00:27:00 Test Item Value Reference Range Interpretation Comments MPV (test code = MPV) 9.3 7.4-10.4 [facility] CenterZxavmnhEMUVMIEXYK9156-53-38 00:27:00 Test Item Value Reference Range Interpretation Comments Hct (test code = Hct) 32.4 42.0-54.0 [facility] CenterLtpokepBNZGSKZVTP9369-65-59 00:27:00 Test Item Value Reference Range Interpretation Comments MCV (test code = MCV) 88.9 80.0-94.0 [facility] CenterJpfjaomUSXBKFAXNT7210-24-83 00:27:00 Test Item Value Reference Range Interpretation Comments MCH (test code = MCH) 29.5 pg 27.0-31.0 [facility] CenterNyokzilFCQXZBYJVL6625-53-05 00:27:00 Test Item Value Reference Range Interpretation Comments Platelet (test code = Platelet) 216 133-450 [facility] CenterJopxgqeCQMEQWLTEX9383-35-41 00:27:00 Test Item Value Reference Range Interpretation Comments MCHC (test code = MCHC) 33.1 32.0-36.0 [facility] CenterCdiwphoYXONUONZUT1003-46-75 00:27:00 Test Item Value Reference Range Interpretation Comments RDW (test code = RDW) 12.6 11.5-14.5 [facility] CenterSrpokczBPLYWODIXU7457-81-74 00:27:00 Test Item Value Reference Range Interpretation Comments Hgb (test code = Hgb) 10.7 14.0-18.0 [facility] CenterVkzbuvnEUTMUUHYBY6084-63-55 00:27:00 Test Item Value Reference Range Interpretation Comments RBC (test code = RBC) 3.65 4.70-6.10 [facility] CenterLgighzkMERJYGFHZK2312-07-47 00:27:00 Test Item Value Reference Range Interpretation Comments WBC (test code = WBC) 8.8 3.7-10.4 [facility] CenterDwntppsKXBOWBKBVL5807-38-88 00:27:00 Test Item Value Reference Range Interpretation Comments Basophils # (test code 0.0 See_Comment [Aut omated message] The = Basophils #) system which generated this result tra nsmitted reference range : <=0.2. The reference r jillian was not used to int erpret this result as normal/abnormal . [facility] CenterYskqeueZVVMVVSJFC9062-46-83 00:27:00 Test Item Value Reference Range Interpretation Comments Eosinophils # (test code 0.1 See_Comment [A utomated message] The = Eosinophils #) system whic h generated this result tra nsmitted reference range : <=0.5. The reference r jillian was not used to int erpret this result as normal/abnormal . [facility] CenterAxhqtsoRLKCEOWTUF2246-62-62 00:27:00 Test Item Value Reference Range Interpretation Comments Monocytes # (test code 0.5 See_Comment [Aut omated message] The = Monocytes #) system which generated this result tra nsmitted reference range : <=0.8. The reference r jillian was not used to int erpret this result as normal/abnormal . [facility] CenterUwaxzwuQSOWGAMDKB0353-59-89 00:27:00 Test Item Value Reference Range Interpretation Comments Lymphocytes # (test code = Lymphocytes 1.3 1.0-5.5 #) [facility] CenterSsaxvhgBREYRVJITP1348-16-56 00:27:00 Test Item Value Reference Range Interpretation Comments Segs (test code = Segs) 78.2 45.0-75.0 [facility] CenterBnegdfxRBFCIPLJYH8176-29-74 00:27:00 Test Item Value Reference Range Interpretation Comments Lymphocytes (test code = Lymphocytes) 14.8 20.0-40.0 [facility] CenterNkogczhRQVUZQUFXJ6048-47-30 00:27:00 Test Item Value Reference Range Interpretation Comments Monocytes (test code = Monocytes) 5.8 2.0-12.0 [facility] CenterVjskpzuAYCSKQUBXZ2474-25-77 00:27:00 Test Item Value Reference Range Interpretation Comments Segs-Bands # (test code = Segs-Bands #) 6.8 1.5-8.1 [facility] CenterNdfwksuTIQWPJSXEB0119-61-34 00:27:00 Test Item Value Reference Range Interpretation Comments Basophils (test code = 0.3 See_Comment [Aut omated message] The Basophils) system which ge nerated this result tra nsmitted reference range : <=1.0. The reference r jillian was not used to int erpret this result as normal/abnormal . [facility] CenterAmjoqvlJJZEFKJETJ9061-21-81 00:27:00 Test Item Value Reference Range Interpretation Comments Eosinophils (test code = 0.9 See_Comment [A utomated message] The Eosinophils) system which ge nerated this result tra nsmitted reference range : <=4.0. The reference r jillian was not used to int erpret this result as normal/abnormal . [facility]2017-07-12 22:46:00 Test Item Value Reference Range Interpretation Comments eGFR (test code = eGFR) 5 [facility]2017-07-12 22:46:00 Test Item Value Reference Range Interpretation Comments Glucose Lvl (test code = Glucose Lvl) 89 70-99 [facility]2017-07-12 22:46:00 Test Item Value Reference Range Interpretation Comments Sodium Lvl (test code = Sodium Lvl) 134 135-145 [facility]2017-07-12 22:46:00 Test Item Value Reference Range Interpretation Comments BUN (test code = BUN) 65 7-22 [facility]2017-07-12 22:46:00 Test Item Value Reference Range Interpretation Comments Potassium Lvl (test code = Potassium 4.6 3.5-5.1 Lvl) [facility]2017-07-12 22:46:00 Test Item Value Reference Range Interpretation Comments Calcium Lvl (test code = Calcium Lvl) 8.4 8.5-10.5 [facility]2017-07-12 22:46:00 Test Item Value Reference Range Interpretation Comments Chloride Lvl (test code = Chloride Lvl) 104 95-109 [facility]2017-07-12 22:46:00 Test Item Value Reference Range Interpretation Comments CO2 (test code = CO2) 21 24-32 [facility]2017-07-12 22:46:00 Test Item Value Reference Range Interpretation Comments Creatinine Lvl (test code = Creatinine 10.00 0.50-1.40 Lvl) [facility]2017-07-12 22:46:00 Test Item Value Reference Range Interpretation Comments AGAP (test code = AGAP) 13.6 10.0-20.0 [facility]2017-07-12 22:46:00 Test Item Value Reference Range Interpretation Comments eGFR (test code = eGFR) 5 [facility]2017-07-12 22:46:00 Test Item Value Reference Range Interpretation Comments Glucose Lvl (test code = Glucose Lvl) 89 70-99 [facility]2017-07-12 22:46:00 Test Item Value Reference Range Interpretation Comments Sodium Lvl (test code = Sodium Lvl) 134 135-145 [facility]2017-07-12 22:46:00 Test Item Value Reference Range Interpretation Comments BUN (test code = BUN) 65 7-22 [facility]2017-07-12 22:46:00 Test Item Value Reference Range Interpretation Comments Potassium Lvl (test code = Potassium 4.6 3.5-5.1 Lvl) [facility]2017-07-12 22:46:00 Test Item Value Reference Range Interpretation Comments Calcium Lvl (test code = Calcium Lvl) 8.4 8.5-10.5 [facility]2017-07-12 22:46:00 Test Item Value Reference Range Interpretation Comments Chloride Lvl (test code = Chloride Lvl) 104 95-109 [facility]2017-07-12 22:46:00 Test Item Value Reference Range Interpretation Comments CO2 (test code = CO2) 21 24-32 [facility]2017-07-12 22:46:00 Test Item Value Reference Range Interpretation Comments Creatinine Lvl (test code = Creatinine 10.00 0.50-1.40 Lvl) [facility]2017-07-12 22:46:00 Test Item Value Reference Range Interpretation Comments AGAP (test code = AGAP) 13.6 10.0-20.0 [facility]2017-07-12 22:46:00 Test Item Value Reference Range Interpretation Comments eGFR (test code = eGFR) 5 [facility]2017-07-12 22:46:00 Test Item Value Reference Range Interpretation Comments Glucose Lvl (test code = Glucose Lvl) 89 70-99 [facility]2017-07-12 22:46:00 Test Item Value Reference Range Interpretation Comments Sodium Lvl (test code = Sodium Lvl) 134 135-145 [facility]2017-07-12 22:46:00 Test Item Value Reference Range Interpretation Comments BUN (test code = BUN) 65 7-22 [facility]2017-07-12 22:46:00 Test Item Value Reference Range Interpretation Comments Potassium Lvl (test code = Potassium 4.6 3.5-5.1 Lvl) [facility]2017-07-12 22:46:00 Test Item Value Reference Range Interpretation Comments Calcium Lvl (test code = Calcium Lvl) 8.4 8.5-10.5 [facility]2017-07-12 22:46:00 Test Item Value Reference Range Interpretation Comments Chloride Lvl (test code = Chloride Lvl) 104 95-109 [facility]2017-07-12 22:46:00 Test Item Value Reference Range Interpretation Comments CO2 (test code = CO2) 21 24-32 [facility]2017-07-12 22:46:00 Test Item Value Reference Range Interpretation Comments Creatinine Lvl (test code = Creatinine 10.00 0.50-1.40 Lvl) [facility]2017-07-12 22:46:00 Test Item Value Reference Range Interpretation Comments AGAP (test code = AGAP) 13.6 10.0-20.0 [facility]2017-07-12 22:46:00 Test Item Value Reference Range Interpretation Comments eGFR (test code = eGFR) 5 [facility]2017-07-12 22:46:00 Test Item Value Reference Range Interpretation Comments Glucose Lvl (test code = Glucose Lvl) 89 70-99 [facility]2017-07-12 22:46:00 Test Item Value Reference Range Interpretation Comments Sodium Lvl (test code = Sodium Lvl) 134 135-145 [facility]2017-07-12 22:46:00 Test Item Value Reference Range Interpretation Comments BUN (test code = BUN) 65 7-22 [facility]2017-07-12 22:46:00 Test Item Value Reference Range Interpretation Comments Potassium Lvl (test code = Potassium 4.6 3.5-5.1 Lvl) [facility]2017-07-12 22:46:00 Test Item Value Reference Range Interpretation Comments Calcium Lvl (test code = Calcium Lvl) 8.4 8.5-10.5 [facility]2017-07-12 22:46:00 Test Item Value Reference Range Interpretation Comments Chloride Lvl (test code = Chloride Lvl) 104 95-109 [facility]2017-07-12 22:46:00 Test Item Value Reference Range Interpretation Comments CO2 (test code = CO2) 21 24-32 [facility]2017-07-12 22:46:00 Test Item Value Reference Range Interpretation Comments Creatinine Lvl (test code = Creatinine 10.00 0.50-1.40 Lvl) [facility]2017-07-12 22:46:00 Test Item Value Reference Range Interpretation Comments AGAP (test code = AGAP) 13.6 10.0-20.0 [facility] 20:03:00 Test Item Value Reference Range Interpretation Comments Hep Bs Ag (test code Negative *NA*(03/17/17 = Hep Bs Ag) 3:03 PM) [facility]BnfatooHUWRFRQEJS2013-34-63 20:03:00 Test Item Value Reference Range Interpretation Comments Hep C Ab (test code = Positive *ABN*(03/17/17 Hep C Ab) 3:03 PM) [facility]HdrdtaqQVPAYATILM6437-03-12 20:03:00 Test Item Value Reference Range Interpretation Comments Hep A IgM (test code Negative *NA*(03/17/17 = Hep A IgM) 3:03 PM) [facility]RehmhbzKNXYAVNQVL5900-28-96 20:03:00 Test Item Value Reference Range Interpretation Comments Hep B Core IgM (test Negative *NA*(03/17/17 code = Hep B Core 3:03 PM) IgM) [facility]JylzpteHEDEUXUQKG5432-34-56 20:03:00 Test Item Value Reference Range Interpretation Comments Hep Bs Ag (test code Negative *NA*(03/17/17 = Hep Bs Ag) 3:03 PM) [facility]LzxxjxsBMQIWFHTLB7373-85-08 20:03:00 Test Item Value Reference Range Interpretation Comments Hep C Ab (test code = Positive *ABN*(03/17/17 Hep C Ab) 3:03 PM) [facility]HulgamaUAEYVIPEBP4551-99-38 20:03:00 Test Item Value Reference Range Interpretation Comments Hep A IgM (test code Negative *NA*(03/17/17 = Hep A IgM) 3:03 PM) [facility]ChhpdbsAXEFOXOISW5059-75-23 20:03:00 Test Item Value Reference Range Interpretation Comments Hep B Core IgM (test Negative *NA*(03/17/17 code = Hep B Core 3:03 PM) IgM) [facility]GlpqwjsAIUEZJCQIA5763-67-82 20:03:00 Test Item Value Reference Range Interpretation Comments Hep Bs Ag (test code Negative *NA*(03/17/17 = Hep Bs Ag) 3:03 PM) [facility]OggsjsyCTUPVNWDYZ5805-22-84 20:03:00 Test Item Value Reference Range Interpretation Comments Hep C Ab (test code = Positive *ABN*(03/17/17 Hep C Ab) 3:03 PM) [facility]NlrsnpeESRGNXABOJ2059-92-61 20:03:00 Test Item Value Reference Range Interpretation Comments Hep A IgM (test code Negative *NA*(03/17/17 = Hep A IgM) 3:03 PM) [facility]XmfbbgyZMGKTCZEOY4027-14-33 20:03:00 Test Item Value Reference Range Interpretation Comments Hep B Core IgM (test Negative *NA*(03/17/17 code = Hep B Core 3:03 PM) IgM) [facility]YtexhexXTSRVEWEHB9871-06-10 20:03:00 Test Item Value Reference Range Interpretation Comments Hep Bs Ag (test code Negative *NA*(03/17/17 = Hep Bs Ag) 3:03 PM) [facility]JbdpnwqHPJBQPHPFF5771-21-44 20:03:00 Test Item Value Reference Range Interpretation Comments Hep C Ab (test code = Positive *ABN*(03/17/17 Hep C Ab) 3:03 PM) [facility]QcqmbyrNQYHQNOXWL6123-84-97 20:03:00 Test Item Value Reference Range Interpretation Comments Hep A IgM (test code Negative *NA*(03/17/17 = Hep A IgM) 3:03 PM) [facility]CimacpkWSNXJQRLRU6825-40-94 20:03:00 Test Item Value Reference Range Interpretation Comments Hep B Core IgM (test Negative *NA*(03/17/17 code = Hep B Core 3:03 PM) IgM) [facility]QtfacwcCIKADMLKSI5228-96-62 16:52:00 Test Item Value Reference Range Interpretation Comments Hep Bs Ab (test code = Hep Bs Ab) no [facility]2017-06-19 16:52:00 Test Item Value Reference Range Interpretation Comments Hep Bs Ab (test code = Hep Bs Ab) no [facility]2017-06-19 16:52:00 Test Item Value Reference Range Interpretation Comments Hep Bs Ab (test code = Hep Bs Ab) no [facility]2017-06-19 16:52:00 Test Item Value Reference Range Interpretation Comments Hep Bs Ab (test code = Hep Bs Ab) no [facility]2017-06-16 10:52:00 Test Item Value Reference Range Interpretation Comments AGAP (test code = AGAP) 14.8 10.0-20.0 [facility]YxgstfkBCHXDOWWFSHV9240-49-60 10:52:00 Test Item Value Reference Range Interpretation Comments eGFR (test code = eGFR) 8 [facility] HealthcareYlivcoaAIIZMEMIEKVD4824-40-33 10:52:00 Test Item Value Reference Range Interpretation Comments Calcium Lvl (test code = Calcium Lvl) 7.6 8.5-10.5 [facility] HealthcareEzsdsxkGAXHGDFZJFMI6892-80-84 10:52:00 Test Item Value Reference Range Interpretation Comments Glucose Lvl (test code = Glucose Lvl) 105 70-99 [facility] HealthcareUlbjmtbCMVPHLXJKDPA6090-51-54 10:52:00 Test Item Value Reference Range Interpretation Comments BUN (test code = BUN) 39 7-22 [facility] HealthcareHixnbqbWVZSATXIECES8715-20-46 10:52:00 Test Item Value Reference Range Interpretation Comments Sodium Lvl (test code = Sodium Lvl) 137 135-145 [facility] HealthcareJmyavhdKJWVHKGPSREH2022-41-67 10:52:00 Test Item Value Reference Range Interpretation Comments Potassium Lvl (test code = Potassium 3.8 3.5-5.1 Lvl) [facility] HealthcareZqlyreoZDBMCLRJIKYL7981-01-09 10:52:00 Test Item Value Reference Range Interpretation Comments Creatinine Lvl (test code = Creatinine 7.44 0.50-1.40 Lvl) [facility] HealthcareKvfuzjaZJQZTDHCUAJJ4702-59-64 10:52:00 Test Item Value Reference Range Interpretation Comments Chloride Lvl (test code = Chloride Lvl) 100 95-109 [facility] HealthcareBirxcmxTZPZJRMQCMJY5182-39-99 10:52:00 Test Item Value Reference Range Interpretation Comments CO2 (test code = CO2) 26 24-32 [facility] CenterFowoaecWMRZEELXTZ3202-59-23 10:52:00 Test Item Value Reference Range Interpretation Comments Hct (test code = Hct) 35.4 42.0-54.0 [facility] CenterZuluguxJMLJLJKUMW8876-11-04 10:52:00 Test Item Value Reference Range Interpretation Comments RBC (test code = RBC) 3.95 4.70-6.10 [facility] CenterYoextpeZRQSWFBXPV9591-72-71 10:52:00 Test Item Value Reference Range Interpretation Comments Hgb (test code = Hgb) 11.7 14.0-18.0 [facility] CenterKbkwkocFNPZQEFAIX8723-13-83 10:52:00 Test Item Value Reference Range Interpretation Comments WBC (test code = WBC) 8.7 3.7-10.4 [facility] CenterGpwdikgSIZERGDWIV0224-23-55 10:52:00 Test Item Value Reference Range Interpretation Comments MPV (test code = MPV) 10.2 7.4-10.4 [facility] CenterAlcbkxnPDIXTAHMOH8011-48-10 10:52:00 Test Item Value Reference Range Interpretation Comments Platelet (test code = Platelet) 176 133-450 [facility] CenterLwkduccNHULGQMSZJ4792-92-23 10:52:00 Test Item Value Reference Range Interpretation Comments RDW (test code = RDW) 13.2 11.5-14.5 [facility] CenterZlboxlwBCUZVGONNJ8397-17-31 10:52:00 Test Item Value Reference Range Interpretation Comments MCHC (test code = MCHC) 33.0 32.0-36.0 [facility] CenterOjzdrvzCQIGDXDPDA0059-88-30 10:52:00 Test Item Value Reference Range Interpretation Comments MCV (test code = MCV) 89.6 80.0-94.0 [facility] CenterXxkatfhQICKNIDQEB5746-20-33 10:52:00 Test Item Value Reference Range Interpretation Comments MCH (test code = MCH) 29.5 pg 27.0-31.0 [facility] HealthcareJhwvurqCSIFZJEKUKLQ2431-80-73 10:52:00 Test Item Value Reference Range Interpretation Comments AGAP (test code = AGAP) 14.8 10.0-20.0 [facility] HealthcareEjzfayqCAYSGKYGOVHI9618-39-01 10:52:00 Test Item Value Reference Range Interpretation Comments eGFR (test code = eGFR) 8 [facility] HealthcareOvfslieRQDPOZSFIITM7754-23-70 10:52:00 Test Item Value Reference Range Interpretation Comments Calcium Lvl (test code = Calcium Lvl) 7.6 8.5-10.5 [facility] HealthcareYhjkxpdXYLCULATXTVH6641-77-50 10:52:00 Test Item Value Reference Range Interpretation Comments Glucose Lvl (test code = Glucose Lvl) 105 70-99 [facility] HealthcareFijfmksLSDIGLIRZOKM8099-66-23 10:52:00 Test Item Value Reference Range Interpretation Comments BUN (test code = BUN) 39 7-22 [facility] HealthcareEzogcdaISAMSDGZJFUG3055-48-28 10:52:00 Test Item Value Reference Range Interpretation Comments Sodium Lvl (test code = Sodium Lvl) 137 135-145 [facility] HealthcareDjfromiQZNSVUVQQZAI6001-36-30 10:52:00 Test Item Value Reference Range Interpretation Comments Potassium Lvl (test code = Potassium 3.8 3.5-5.1 Lvl) [facility] HealthcareYtmbrseKJWHTEFJXRHD8446-42-91 10:52:00 Test Item Value Reference Range Interpretation Comments Creatinine Lvl (test code = Creatinine 7.44 0.50-1.40 Lvl) [facility] HealthcarePdtdbyyQYRYEURPRVHY8694-00-34 10:52:00 Test Item Value Reference Range Interpretation Comments Chloride Lvl (test code = Chloride Lvl) 100 95-109 [facility] HealthcareElixrutPKOWQQHHPUKS2208-92-37 10:52:00 Test Item Value Reference Range Interpretation Comments CO2 (test code = CO2) 26 24-32 [facility] CenterNvjwpdcRAJHAAHFAU3132-50-15 10:52:00 Test Item Value Reference Range Interpretation Comments Hct (test code = Hct) 35.4 42.0-54.0 [facility] CenterYmwdjtdVJHQIEERNX6646-33-18 10:52:00 Test Item Value Reference Range Interpretation Comments RBC (test code = RBC) 3.95 4.70-6.10 [facility] CenterJgmthhbGPYBAXZAQQ4441-85-16 10:52:00 Test Item Value Reference Range Interpretation Comments Hgb (test code = Hgb) 11.7 14.0-18.0 [facility] CenterSkvjmznPXHCOFNTBC3751-03-66 10:52:00 Test Item Value Reference Range Interpretation Comments WBC (test code = WBC) 8.7 3.7-10.4 [facility] CenterMkolnezMONNQUYSDV1127-35-05 10:52:00 Test Item Value Reference Range Interpretation Comments MPV (test code = MPV) 10.2 7.4-10.4 [facility] CenterEgdmmnlHKESWAIBMQ1080-35-62 10:52:00 Test Item Value Reference Range Interpretation Comments Platelet (test code = Platelet) 176 133-450 [facility] CenterTkpqlanVNOTGVUAOC3577-52-06 10:52:00 Test Item Value Reference Range Interpretation Comments RDW (test code = RDW) 13.2 11.5-14.5 [facility] CenterKhuzdwnFEZYNEZOBN1895-54-04 10:52:00 Test Item Value Reference Range Interpretation Comments MCHC (test code = MCHC) 33.0 32.0-36.0 [facility] CenterAsrhcjdDAXICTDPAM7459-73-75 10:52:00 Test Item Value Reference Range Interpretation Comments MCV (test code = MCV) 89.6 80.0-94.0 [facility] CenterIurkyxwSQMHDCTDBL5102-90-94 10:52:00 Test Item Value Reference Range Interpretation Comments MCH (test code = MCH) 29.5 pg 27.0-31.0 [facility] HealthcareMfzbwznSGWLPPQORLMV0937-32-71 10:52:00 Test Item Value Reference Range Interpretation Comments AGAP (test code = AGAP) 14.8 10.0-20.0 [facility] HealthcareMcuyrmnQRWUUIZQAMMJ5007-26-41 10:52:00 Test Item Value Reference Range Interpretation Comments eGFR (test code = eGFR) 8 [facility] HealthcareYzaoceiUOGKVRNKOLCN2766-06-79 10:52:00 Test Item Value Reference Range Interpretation Comments Calcium Lvl (test code = Calcium Lvl) 7.6 8.5-10.5 [facility] HealthcareSterqhlKALUYXUZPMHN8751-59-65 10:52:00 Test Item Value Reference Range Interpretation Comments Glucose Lvl (test code = Glucose Lvl) 105 70-99 [facility] HealthcareCizufbcJWIHAYMGCOAR9210-62-16 10:52:00 Test Item Value Reference Range Interpretation Comments BUN (test code = BUN) 39 7-22 [facility] HealthcareXiuwncfNAMJIUILTSGR1561-21-82 10:52:00 Test Item Value Reference Range Interpretation Comments Sodium Lvl (test code = Sodium Lvl) 137 135-145 [facility] HealthcareFzqjexuSOFDRLRFMVUY5779-36-49 10:52:00 Test Item Value Reference Range Interpretation Comments Potassium Lvl (test code = Potassium 3.8 3.5-5.1 Lvl) [facility] HealthcarePkzpmegDUNJYXGGDEUI4131-54-57 10:52:00 Test Item Value Reference Range Interpretation Comments Creatinine Lvl (test code = Creatinine 7.44 0.50-1.40 Lvl) [facility] HealthcareOqzhrewDBLMITENVUCR9253-93-37 10:52:00 Test Item Value Reference Range Interpretation Comments Chloride Lvl (test code = Chloride Lvl) 100 95-109 [facility] HealthcareFvpldznNHARXZDRQWUH2946-78-33 10:52:00 Test Item Value Reference Range Interpretation Comments CO2 (test code = CO2) 26 24-32 [facility] CenterVvkwrpdFVKVFJKRUM5991-64-82 10:52:00 Test Item Value Reference Range Interpretation Comments Hct (test code = Hct) 35.4 42.0-54.0 [facility] CenterPcblwjzJPTDKTQMXL6639-08-96 10:52:00 Test Item Value Reference Range Interpretation Comments RBC (test code = RBC) 3.95 4.70-6.10 [facility] CenterPdecpxnJZHGCRMNZC5918-95-70 10:52:00 Test Item Value Reference Range Interpretation Comments Hgb (test code = Hgb) 11.7 14.0-18.0 [facility] CenterAkujxvyWKEIMDFEEA6614-47-72 10:52:00 Test Item Value Reference Range Interpretation Comments WBC (test code = WBC) 8.7 3.7-10.4 [facility] CenterEbaktqfLVUTCWYLMD9959-69-53 10:52:00 Test Item Value Reference Range Interpretation Comments MPV (test code = MPV) 10.2 7.4-10.4 [facility] CenterOgktgnvRXZYVYKTTW1596-65-06 10:52:00 Test Item Value Reference Range Interpretation Comments Platelet (test code = Platelet) 176 133-450 [facility] CenterFecieqzIEXGYWUUFU1158-46-94 10:52:00 Test Item Value Reference Range Interpretation Comments RDW (test code = RDW) 13.2 11.5-14.5 [facility] CenterHomxjkfAKGTHWZMAV3422-06-40 10:52:00 Test Item Value Reference Range Interpretation Comments MCHC (test code = MCHC) 33.0 32.0-36.0 [facility] CenterGvewjmyAXHSOREGDT3818-83-20 10:52:00 Test Item Value Reference Range Interpretation Comments MCV (test code = MCV) 89.6 80.0-94.0 [facility] CenterTyzwrtlAAZRXWXXUT6205-24-76 10:52:00 Test Item Value Reference Range Interpretation Comments MCH (test code = MCH) 29.5 pg 27.0-31.0 [facility] HealthcareOslmxyqBMYTNQVWQFXD6686-51-34 10:52:00 Test Item Value Reference Range Interpretation Comments AGAP (test code = AGAP) 14.8 10.0-20.0 [facility] HealthcareGbpbvrhYMEJUTPZSHIE5038-39-47 10:52:00 Test Item Value Reference Range Interpretation Comments eGFR (test code = eGFR) 8 [facility] HealthcareSqbcqgiEQAYFIROKDIN8894-49-76 10:52:00 Test Item Value Reference Range Interpretation Comments Calcium Lvl (test code = Calcium Lvl) 7.6 8.5-10.5 [facility] HealthcareSvjoygjAOHIOTWGCIXC9634-44-43 10:52:00 Test Item Value Reference Range Interpretation Comments Glucose Lvl (test code = Glucose Lvl) 105 70-99 [facility] HealthcareMlnxzwtVUJLAYSVLZZM7751-32-51 10:52:00 Test Item Value Reference Range Interpretation Comments BUN (test code = BUN) 39 7-22 [facility] HealthcarePuqsbvxIRLMIZHJRCLU1463-82-94 10:52:00 Test Item Value Reference Range Interpretation Comments Sodium Lvl (test code = Sodium Lvl) 137 135-145 [facility] HealthcareUznxgdaJKQRLNIOLWNF6494-20-07 10:52:00 Test Item Value Reference Range Interpretation Comments Potassium Lvl (test code = Potassium 3.8 3.5-5.1 Lvl) [facility] HealthcareZjqtxinYJWXNOIJOGOG0856-28-13 10:52:00 Test Item Value Reference Range Interpretation Comments Creatinine Lvl (test code = Creatinine 7.44 0.50-1.40 Lvl) [facility] HealthcareAxxnyxaDUXXKGONAUQD0221-12-27 10:52:00 Test Item Value Reference Range Interpretation Comments Chloride Lvl (test code = Chloride Lvl) 100 95-109 [facility] HealthcareJwrbomfUQGRYLFSAPZE6818-70-60 10:52:00 Test Item Value Reference Range Interpretation Comments CO2 (test code = CO2) 26 24-[address] [facility]IlximhwTCICTLQDJN7058-59-35 10:52:00 Test Item Value Reference Range Interpretation Comments Hct (test code = Hct) 35.4 42.0-54.0 [facility]OvdobuwPVRUOHEAJP2139-47-28 10:52:00 Test Item Value Reference Range Interpretation Comments RBC (test code = RBC) 3.95 4.70-6.10 [facility] CenterWqajxupJWTEUUGHJD9621-10-10 10:52:00 Test Item Value Reference Range Interpretation Comments Hgb (test code = Hgb) 11.7 14.0-18.0 [facility] CenterNnvyrjiQYPNLHAYJW9067-35-01 10:52:00 Test Item Value Reference Range Interpretation Comments WBC (test code = WBC) 8.7 3.7-10.4 [facility] CenterUwpxsjbYKYQXJWOLD0311-24-65 10:52:00 Test Item Value Reference Range Interpretation Comments MPV (test code = MPV) 10.2 7.4-10.4 [facility] CenterXugbbcjRZPHYVTFFS4667-91-19 10:52:00 Test Item Value Reference Range Interpretation Comments Platelet (test code = Platelet) 176 133-450 [facility] CenterWophkktKAGHCXKFCT2956-75-52 10:52:00 Test Item Value Reference Range Interpretation Comments RDW (test code = RDW) 13.2 11.5-14.5 [facility] CenterLibxhkuUSEVWKPBYA5324-94-15 10:52:00 Test Item Value Reference Range Interpretation Comments MCHC (test code = MCHC) 33.0 32.0-36.0 [facility] CenterKjntikdHCTWYQCPFM0289-31-37 10:52:00 Test Item Value Reference Range Interpretation Comments MCV (test code = MCV) 89.6 80.0-94.0 [facility] CenterBcfjhslBTYJEZKCIX7760-32-84 10:52:00 Test Item Value Reference Range Interpretation Comments MCH (test code = MCH) 29.5 pg 27.0-31.0 [facility]LyeerehFOHDLGXLEX1177-51-39 20:06:00 Test Item Value Reference Range Interpretation Comments Hep A IgM (test code Negative *NA*(03/13/17 = Hep A IgM) 3:06 PM) [facility]FbpswdxBOUVKELSKN1052-40-29 20:06:00 Test Item Value Reference Range Interpretation Comments Hep Bs Ag (test code Negative *NA*(03/13/17 = Hep Bs Ag) 3:06 PM) [facility]ZehjqmlKXKAFQGVAW0640-62-43 20:06:00 Test Item Value Reference Range Interpretation Comments Hep B Core IgM (test Negative *NA*(03/13/17 code = Hep B Core 3:06 PM) IgM) [facility]CwuhaarAARVTJMNWC0693-94-46 20:06:00 Test Item Value Reference Range Interpretation Comments Hep C Ab (test code = Positive *ABN*(03/13/17 Hep C Ab) 3:06 PM) [facility]KoygjyhODCPDNRFYD5503-03-42 20:06:00 Test Item Value Reference Range Interpretation Comments Hep B Core Ab (test Negative *NA*(03/13/17 code = Hep B Core Ab) 3:06 PM) [facility] TexasRdlaaetGPYHSXDTHY4958-64-83 20:06:00 Test Item Value Reference Range Interpretation Comments Hep A IgM (test code Negative *NA*(03/13/17 = Hep A IgM) 3:06 PM) [facility] TexasZzbpjhgYRVWTAGVBS2001-34-34 20:06:00 Test Item Value Reference Range Interpretation Comments Hep Bs Ag (test code Negative *NA*(03/13/17 = Hep Bs Ag) 3:06 PM) [facility] TexasTzycmplPWYHWSAPRA9307-11-23 20:06:00 Test Item Value Reference Range Interpretation Comments Hep B Core IgM (test Negative *NA*(03/13/17 code = Hep B Core 3:06 PM) IgM) [facility] TexasBjqsmbfKPEHSZDCKD0833-46-38 20:06:00 Test Item Value Reference Range Interpretation Comments Hep C Ab (test code = Positive *ABN*(03/13/17 Hep C Ab) 3:06 PM) [facility]GqbdiksUCQVAUCMJV8724-86-78 20:06:00 Test Item Value Reference Range Interpretation Comments Hep B Core Ab (test Negative *NA*(03/13/17 code = Hep B Core Ab) 3:06 PM) [facility]RiuahnzIJHJXSMFQB4192-40-24 20:06:00 Test Item Value Reference Range Interpretation Comments Hep A IgM (test code Negative *NA*(03/13/17 = Hep A IgM) 3:06 PM) [facility]QtxbirmBSBHRTKWAV1204-78-01 20:06:00 Test Item Value Reference Range Interpretation Comments Hep Bs Ag (test code Negative *NA*(03/13/17 = Hep Bs Ag) 3:06 PM) [facility]QtqakyyWOCRRJGIBU0547-61-14 20:06:00 Test Item Value Reference Range Interpretation Comments Hep B Core IgM (test Negative *NA*(03/13/17 code = Hep B Core 3:06 PM) IgM) [facility] TexasQasylzkRVEHTXDEKH9193-64-95 20:06:00 Test Item Value Reference Range Interpretation Comments Hep C Ab (test code = Positive *ABN*(03/13/17 Hep C Ab) 3:06 PM) [facility] TexasFiuzqbwANIYYMFEOO1262-56-68 20:06:00 Test Item Value Reference Range Interpretation Comments Hep B Core Ab (test Negative *NA*(03/13/17 code = Hep B Core Ab) 3:06 PM) [facility]NwkycbfGPZDLRYKKW7201-88-76 20:06:00 Test Item Value Reference Range Interpretation Comments Hep A IgM (test code Negative *NA*(03/13/17 = Hep A IgM) 3:06 PM) [facility] TexasRvkikdbFKLMHOERLG2706-58-41 20:06:00 Test Item Value Reference Range Interpretation Comments Hep Bs Ag (test code Negative *NA*(03/13/17 = Hep Bs Ag) 3:06 PM) [facility]XnclbbwVLYTDYLFMM1463-96-91 20:06:00 Test Item Value Reference Range Interpretation Comments Hep B Core IgM (test Negative *NA*(03/13/17 code = Hep B Core 3:06 PM) IgM) [facility] TexasEoaesrsHCAXSPGOGY7510-88-32 20:06:00 Test Item Value Reference Range Interpretation Comments Hep C Ab (test code = Positive *ABN*(03/13/17 Hep C Ab) 3:06 PM) [facility] TexasUhsizdcDTVWKNCGPR5450-97-99 20:06:00 Test Item Value Reference Range Interpretation Comments Hep B Core Ab (test Negative *NA*(03/13/17 code = Hep B Core Ab) 3:06 PM) [facility] TexasMvcjmnvBAWCSUWIMN1853-45-24 11:14:00 Test Item Value Reference Range Interpretation Comments Hep Be Ab (test code = Hep Be Ab) Negative [facility]LctskngGVYRFPMFNM2884-03-02 11:14:00 Test Item Value Reference Range Interpretation Comments Hep Be Ab (test code = Hep Be Ab) Negative [facility] HospitalLhmmwqcUPXDCNENRI4361-87-01 11:14:00 Test Item Value Reference Range Interpretation Comments Hep Be Ab (test code = Hep Be Ab) Negative [facility]CobnfxjFLAERSZGLF5087-38-32 11:14:00 Test Item Value Reference Range Interpretation Comments Hep Be Ab (test code = Hep Be Ab) Negative [facility] TexasBtdzembREHQRUXKLF5273-05-35 23:21:00 Test Item Value Reference Range Interpretation Comments Hep Bs Ag (test code Negative *NA*(03/12/17 = Hep Bs Ag) 6:21 PM) [facility] TexasDubsaslRJLDAMOYYW9775-54-86 23:21:00 Test Item Value Reference Range Interpretation Comments Hep Bs Ag (test code Negative *NA*(03/12/17 = Hep Bs Ag) 6:21 PM) [facility] TexasSvghxxcUSDZPFUZQR7688-13-50 23:21:00 Test Item Value Reference Range Interpretation Comments Hep B Core Ab (test Negative *NA*(03/12/17 code = Hep B Core Ab) 6:21 PM) [facility]LgncamtWCPRVHRTOC7801-78-34 23:21:00 Test Item Value Reference Range Interpretation Comments Hep Bs Ag (test code Negative *NA*(03/12/17 = Hep Bs Ag) 6:21 PM) [facility]QzjzppgXTRHUQXQFD0252-83-92 23:21:00 Test Item Value Reference Range Interpretation Comments Hep Bs Ag (test code Negative *NA*(03/12/17 = Hep Bs Ag) 6:21 PM) [facility]IgrktwhMOYIFSDXEN9186-76-44 23:21:00 Test Item Value Reference Range Interpretation Comments Hep B Core Ab (test Negative *NA*(03/12/17 code = Hep B Core Ab) 6:21 PM) [facility]IxgfeebNRTAMUYUZU2442-81-32 23:21:00 Test Item Value Reference Range Interpretation Comments Hep Bs Ag (test code Negative *NA*(03/12/17 = Hep Bs Ag) 6:21 PM) [facility]KpzrdonQYUHJHUAWC2568-45-92 23:21:00 Test Item Value Reference Range Interpretation Comments Hep Bs Ag (test code Negative *NA*(03/12/17 = Hep Bs Ag) 6:21 PM) [facility]LnvixlfBNJXWJRBKD1003-56-64 23:21:00 Test Item Value Reference Range Interpretation Comments Hep B Core Ab (test Negative *NA*(03/12/17 code = Hep B Core Ab) 6:21 PM) [facility]NzmhzzjXFOIGWUTCV4391-54-53 23:21:00 Test Item Value Reference Range Interpretation Comments Hep Bs Ag (test code Negative *NA*(03/12/17 = Hep Bs Ag) 6:21 PM) [facility] TexasSjmedliSPMYFRDBKE4897-52-42 23:21:00 Test Item Value Reference Range Interpretation Comments Hep Bs Ag (test code Negative *NA*(03/12/17 = Hep Bs Ag) 6:21 PM) [facility] HospitalKtmdajdPGTJALZGRT6656-79-65 23:21:00 Test Item Value Reference Range Interpretation Comments Hep B Core Ab (test Negative *NA*(03/12/17 code = Hep B Core Ab) 6:21 PM) [facility] HospitalCHE[facility] XHQGA4777-49-03 11:03:00 Test Item Value Reference Range Interpretation Comments Magnesium Lvl (test code = Magnesium 2.0 1.8-2.4 Lvl) [facility]DtropzxKVEUGXRIHVNA4771-64-50 11:03:00 Test Item Value Reference Range Interpretation Comments AGAP (test code = AGAP) 15.8 10.0-20.0 [facility] HealthcarePxfbgbyTYTPWZZUXQCR3385-19-42 11:03:00 Test Item Value Reference Range Interpretation Comments Phosphorus (test code = Phosphorus) 6.2 2.5-4.5 [facility] HealthcareYxikeuxGWUZUPYNKNVQ6145-48-00 11:03:00 Test Item Value Reference Range Interpretation Comments Albumin Lvl (test code = Albumin Lvl) 2.7 3.5-5.0 [facility] HealthcareOkucgroASBCGXNONWIZ8905-19-14 11:03:00 Test Item Value Reference Range Interpretation Comments Chloride Lvl (test code = Chloride Lvl) 108 95-109 [facility] HealthcareZolbfhbTQRJZKGOXDMA2357-37-03 11:03:00 Test Item Value Reference Range Interpretation Comments CO2 (test code = CO2) 20 24-32 [facility] HealthcareLrigizxQUNHBZFSFCGI5705-62-09 11:03:00 Test Item Value Reference Range Interpretation Comments Calcium Lvl (test code = Calcium Lvl) 7.4 8.5-10.5 [facility] HealthcareCzewpisSTYRBBCCGCDQ8280-91-38 11:03:00 Test Item Value Reference Range Interpretation Comments Sodium Lvl (test code = Sodium Lvl) 139 135-145 [facility] HealthcareFvpwpstZCKQDMVNTALC7068-36-55 11:03:00 Test Item Value Reference Range Interpretation Comments Creatinine Lvl (test code = Creatinine 9.27 0.50-1.40 Lvl) [facility] HealthcarePchcwhdETOVCAYGVXUT9328-73-72 11:03:00 Test Item Value Reference Range Interpretation Comments BUN (test code = BUN) 60 7-22 [facility] HealthcarePsaeawrASGBHHKUKFEK1140-93-70 11:03:00 Test Item Value Reference Range Interpretation Comments Potassium Lvl (test code = Potassium 4.8 3.5-5.1 Lvl) [facility] HealthcareDdhvttoHLOPIKOZPIEM9281-32-16 11:03:00 Test Item Value Reference Range Interpretation Comments Glucose Lvl (test code = Glucose Lvl) 88 70-99 [facility] HealthcareNygmubjTKIZGELXMUKO3544-23-53 11:03:00 Test Item Value Reference Range Interpretation Comments eGFR (test code = eGFR) [address] [facility] [address]CHEM [id number] 11:03:00 Test Item Value Reference Range Interpretation Comments Magnesium Lvl (test code = Magnesium 2.0 1.8-2.4 Lvl) [facility] HealthcareXliuxvlFJDKJMQUAPOP9164-57-06 11:03:00 Test Item Value Reference Range Interpretation Comments AGAP (test code = AGAP) 15.8 10.0-20.0 [facility] HealthcareKzjdmhjQGUHXGQVJTQM1906-95-77 11:03:00 Test Item Value Reference Range Interpretation Comments Phosphorus (test code = Phosphorus) 6.2 2.5-4.5 [facility] HealthcareVlqjmdpFTZZQTLCWVUV3990-44-58 11:03:00 Test Item Value Reference Range Interpretation Comments Albumin Lvl (test code = Albumin Lvl) 2.7 3.5-5.0 [facility] HealthcareWmllhuwLUDHREKNREWF1421-71-32 11:03:00 Test Item Value Reference Range Interpretation Comments Chloride Lvl (test code = Chloride Lvl) 108 95-109 [facility] HealthcareFuykjjqFEXURGLYWQMT2658-37-23 11:03:00 Test Item Value Reference Range Interpretation Comments CO2 (test code = CO2) 20 24-32 [facility] HealthcareEiulyzeHMVNINNBOBFA5598-70-21 11:03:00 Test Item Value Reference Range Interpretation Comments Calcium Lvl (test code = Calcium Lvl) 7.4 8.5-10.5 [facility] HealthcareTidqasqCGTYIWPBDNYG7087-47-07 11:03:00 Test Item Value Reference Range Interpretation Comments Sodium Lvl (test code = Sodium Lvl) 139 135-145 [facility] HealthcareGcvzjnlZDFTUPTQSJMQ4069-17-39 11:03:00 Test Item Value Reference Range Interpretation Comments Creatinine Lvl (test code = Creatinine 9.27 0.50-1.40 Lvl) [facility] HealthcareHfbjktpNHGTAHSPATVN3394-19-44 11:03:00 Test Item Value Reference Range Interpretation Comments BUN (test code = BUN) 60 7-22 [facility] HealthcareCurnfknAUSBEWZVWQFJ1950-73-67 11:03:00 Test Item Value Reference Range Interpretation Comments Potassium Lvl (test code = Potassium 4.8 3.5-5.1 Lvl) [facility] HealthcareQtwofywZECGNEGRRXRM6471-90-26 11:03:00 Test Item Value Reference Range Interpretation Comments Glucose Lvl (test code = Glucose Lvl) 88 70-99 [facility] HealthcareTefnxqsBJPSTZVHPWYT1747-84-35 11:03:00 Test Item Value Reference Range Interpretation Comments eGFR (test code = eGFR) [address] [facility] [address]CHE[facility] [id number] 11:03:00 Test Item Value Reference Range Interpretation Comments Magnesium Lvl (test code = Magnesium 2.0 1.8-2.4 Lvl) [facility] HealthcareZcodbaqNQJEHWBISIHV1241-21-81 11:03:00 Test Item Value Reference Range Interpretation Comments AGAP (test code = AGAP) 15.8 10.0-20.0 [facility] HealthcareQgyeladNQFDEYIJJRCK6887-68-05 11:03:00 Test Item Value Reference Range Interpretation Comments Phosphorus (test code = Phosphorus) 6.2 2.5-4.5 [facility] HealthcareYostwqfUYXEYARFORWK4746-80-61 11:03:00 Test Item Value Reference Range Interpretation Comments Albumin Lvl (test code = Albumin Lvl) 2.7 3.5-5.0 [facility] HealthcareDtyifquGKQNPKGZOIHT3435-33-15 11:03:00 Test Item Value Reference Range Interpretation Comments Chloride Lvl (test code = Chloride Lvl) 108 95-109 [facility] HealthcareRyvtwsdSBFISYCAXTLY6024-09-13 11:03:00 Test Item Value Reference Range Interpretation Comments CO2 (test code = CO2) 20 24-32 [facility] HealthcareWizwwsqWSXVXHEIOEHT6804-01-24 11:03:00 Test Item Value Reference Range Interpretation Comments Calcium Lvl (test code = Calcium Lvl) 7.4 8.5-10.5 [facility] HealthcareGrmmrqpZIRGBZJVUVXU9948-35-87 11:03:00 Test Item Value Reference Range Interpretation Comments Sodium Lvl (test code = Sodium Lvl) 139 135-145 [facility] HealthcareMjhvshaLOTAYYAZBUOA6566-21-30 11:03:00 Test Item Value Reference Range Interpretation Comments Creatinine Lvl (test code = Creatinine 9.27 0.50-1.40 Lvl) [facility] HealthcarePxqyonwSUOVNIFYAXUU7821-85-85 11:03:00 Test Item Value Reference Range Interpretation Comments BUN (test code = BUN) 60 7-22 [facility] HealthcareFkwmnvvEOEHLQFKEYOS5299-89-87 11:03:00 Test Item Value Reference Range Interpretation Comments Potassium Lvl (test code = Potassium 4.8 3.5-5.1 Lvl) [facility] HealthcareZufybsqVFIDGZVJUSBN2880-48-31 11:03:00 Test Item Value Reference Range Interpretation Comments Glucose Lvl (test code = Glucose Lvl) 88 70-99 [facility] HealthcareUasxouoTXADQFFVYAZZ0943-69-15 11:03:00 Test Item Value Reference Range Interpretation Comments eGFR (test code = eGFR) [address]CHE[facility] KLIJL6405-67-39 11:03:00 Test Item Value Reference Range Interpretation Comments Magnesium Lvl (test code = Magnesium 2.0 1.8-2.4 Lvl) [facility] HealthcareCjrpfliULTDHSTRJAGG1899-94-94 11:03:00 Test Item Value Reference Range Interpretation Comments AGAP (test code = AGAP) 15.8 10.0-20.0 [facility] HealthcareGmoynnzYXZXJKWSGVYJ1476-38-12 11:03:00 Test Item Value Reference Range Interpretation Comments Phosphorus (test code = Phosphorus) 6.2 2.5-4.5 [facility] HealthcareJrfqetaTKQKOGNZJYMU7909-30-50 11:03:00 Test Item Value Reference Range Interpretation Comments Albumin Lvl (test code = Albumin Lvl) 2.7 3.5-5.0 [facility] HealthcareEfprlrwQVVNGXGUBMLA7406-02-64 11:03:00 Test Item Value Reference Range Interpretation Comments Chloride Lvl (test code = Chloride Lvl) 108 95-109 [facility] HealthcareCvwmrreXKZLCRBUZESX9040-96-99 11:03:00 Test Item Value Reference Range Interpretation Comments CO2 (test code = CO2) 20 24-32 [facility] HealthcareExvflurXRGFRABITMMY4964-06-21 11:03:00 Test Item Value Reference Range Interpretation Comments Calcium Lvl (test code = Calcium Lvl) 7.4 8.5-10.5 [facility] HealthcareSbyljgaYIKHMFTTFVHP6008-48-36 11:03:00 Test Item Value Reference Range Interpretation Comments Sodium Lvl (test code = Sodium Lvl) 139 135-145 [facility] HealthcareTovwxvhFKPXHNOADKEI5130-64-27 11:03:00 Test Item Value Reference Range Interpretation Comments Creatinine Lvl (test code = Creatinine 9.27 0.50-1.40 Lvl) [facility] HealthcareZvnjnelVYHILTQGQRDP4415-92-95 11:03:00 Test Item Value Reference Range Interpretation Comments BUN (test code = BUN) 60 7-22 [facility] HealthcareIcfsoqsIYPLOKFWOHOY3522-62-84 11:03:00 Test Item Value Reference Range Interpretation Comments Potassium Lvl (test code = Potassium 4.8 3.5-5.1 Lvl) [facility] HealthcareYzybffaQLMUTDYYAWAO5876-94-17 11:03:00 Test Item Value Reference Range Interpretation Comments Glucose Lvl (test code = Glucose Lvl) 88 70-99 [facility] HealthcareQyfvxujIJEORUPFZIRV0542-40-34 11:03:00 Test Item Value Reference Range Interpretation Comments eGFR (test code = eGFR) 6 [facility]2017-06-13 18:59:00 Test Item Value Reference Range Interpretation Comments U Creatinine (test code = U Creatinine) 76.70 [facility]2017-06-13 18:59:00 Test Item Value Reference Range Interpretation Comments U Protein (test code = U Protein) 360.8 [facility]2017-06-13 18:59:00 Test Item Value Reference Range Interpretation Comments U Eos (test code = U None Seen (03/11/17 1:59 Eos) PM) [facility]2017-06-13 18:59:00 Test Item Value Reference Range Interpretation Comments U Sodium (test code = U Sodium) 68 [facility]2017-06-13 18:59:00 Test Item Value Reference Range Interpretation Comments U Prot/Creat (test code = U Prot/Creat) 4.7 [facility]2017-06-13 18:59:00 Test Item Value Reference Range Interpretation Comments U Creatinine (test code = U Creatinine) 76.70 [facility]2017-06-13 18:59:00 Test Item Value Reference Range Interpretation Comments U Protein (test code = U Protein) 360.8 [facility]2017-06-13 18:59:00 Test Item Value Reference Range Interpretation Comments U Eos (test code = U None Seen (03/11/17 1:59 Eos) PM) [facility]2017-06-13 18:59:00 Test Item Value Reference Range Interpretation Comments U Sodium (test code = U Sodium) 68 [facility] [id number] 18:59:00 Test Item Value Reference Range Interpretation Comments U Prot/Creat (test code = U Prot/Creat) 4.7 [facility] [id number] 18:59:00 Test Item Value Reference Range Interpretation Comments U Creatinine (test code = U Creatinine) 76.70 [facility] EVPL7261-42-77 18:59:00 Test Item Value Reference Range Interpretation Comments U Protein (test code = U Protein) 360.8 [facility] [id number] 18:59:00 Test Item Value Reference Range Interpretation Comments U Eos (test code = U None Seen (03/11/17 1:59 Eos) PM) [facility] [id number] 18:59:00 Test Item Value Reference Range Interpretation Comments U Sodium (test code = U Sodium) 68 [facility] [id number] 18:59:00 Test Item Value Reference Range Interpretation Comments U Prot/Creat (test code = U Prot/Creat) 4.7 [facility] [id number] 18:59:00 Test Item Value Reference Range Interpretation Comments U Creatinine (test code = U Creatinine) 76.70 [facility] [id number] 18:59:00 Test Item Value Reference Range Interpretation Comments U Protein (test code = U Protein) 360.8 [facility] [id number] 18:59:00 Test Item Value Reference Range Interpretation Comments U Eos (test code = U None Seen (03/11/17 1:59 Eos) PM) [facility] [id number] 18:59:00 Test Item Value Reference Range Interpretation Comments U Sodium (test code = U Sodium) 68 [facility] [id number] 18:59:00 Test Item Value Reference Range Interpretation Comments U Prot/Creat (test code = U Prot/Creat) 4.7 [facility] [id number] 09:56:00 Test Item Value Reference Range Interpretation Comments A/G Ratio (test code = A/G Ratio) 0.6 0.7-1.6 [facility]annCHE[facility] [id number] 09:56:00 Test Item Value Reference Range Interpretation Comments AGAP (test code = AGAP) 16.5 10.0-20.0 [facility]2017-06-13 09:56:00 Test Item Value Reference Range Interpretation Comments B/C Ratio (test code = B/C Ratio) 6 6-25 [facility]2017-06-13 09:56:00 Test Item Value Reference Range Interpretation Comments Globulin (test code = Globulin) 4.6 2.7-4.2 [facility]2017-06-13 09:56:00 Test Item Value Reference Range Interpretation Comments Bili Total (test code = Bili Total) 0.3 0.2-1.3 [facility]2017-06-13 09:56:00 Test Item Value Reference Range Interpretation Comments Alk Phos (test code = Alk Phos) 123 39-136 [facility]2017-06-13 09:56:00 Test Item Value Reference Range Interpretation Comments AST (test code = AST) 12 See_Comment [Auto mated message] The system which ge nerated this result transmit cruz reference range : <=37. The reference range was not used to interpr et this result as gee l/abnormal. [facility]2017-06-13 09:56:00 Test Item Value Reference Range Interpretation Comments Total Protein (test code = Total 7.3 6.4-8.4 Protein) [facility]2017-06-13 09:56:00 Test Item Value Reference Range Interpretation Comments Albumin Lvl (test code = Albumin Lvl) 2.7 3.5-5.0 [facility]2017-06-13 09:56:00 Test Item Value Reference Range Interpretation Comments ALT (test code = ALT) 17 See_Comment [Auto mated message] The system which ge nerated this result transmit cruz reference range : <=65. The reference range was not used to interpr et this result as gee l/abnormal. [facility]2017-06-13 09:56:00 Test Item Value Reference Range Interpretation Comments CO2 (test code = CO2) 21 24-32 [place] [id number] 09:56:00 Test Item Value Reference Range Interpretation Comments Calcium Lvl (test code = Calcium Lvl) 7.5 8.5-10.5 [facility]2017-06-13 09:56:00 Test Item Value Reference Range Interpretation Comments Potassium Lvl (test code = Potassium 4.5 3.5-5.1 Lvl) [facility]2017-06-13 09:56:00 Test Item Value Reference Range Interpretation Comments Creatinine Lvl (test code = Creatinine 9.18 0.50-1.40 Lvl) [facility]2017-06-13 09:56:00 Test Item Value Reference Range Interpretation Comments Sodium Lvl (test code = Sodium Lvl) 141 135-145 [facility]2017-06-13 09:56:00 Test Item Value Reference Range Interpretation Comments BUN (test code = BUN) 59 7-22 [facility]2017-06-13 09:56:00 Test Item Value Reference Range Interpretation Comments Chloride Lvl (test code = Chloride Lvl) 108 95-109 [facility]2017-06-13 09:56:00 Test Item Value Reference Range Interpretation Comments eGFR (test code = eGFR) 6 [facility]2017-06-13 09:56:00 Test Item Value Reference Range Interpretation Comments Glucose Lvl (test code = Glucose Lvl) 86 70-99 [facility]2017-06-13 09:56:00 Test Item Value Reference Range Interpretation Comments Phosphorus (test code = Phosphorus) 5.9 2.5-4.5 [facility]2017-06-13 09:56:00 Test Item Value Reference Range Interpretation Comments Magnesium Lvl (test code = Magnesium 2.0 1.8-2.4 Lvl) [facility]WkmdwxfSBWIDUGVIP7692-25-07 09:56:00 Test Item Value Reference Range Interpretation Comments Platelet (test code = Platelet) 225 133-450 [facility] CenterHqdasmsIVYEDIIIJZ6148-37-16 09:56:00 Test Item Value Reference Range Interpretation Comments MPV (test code = MPV) 10.2 7.4-10.4 [facility] CenterJjriklxRBSHCZFBUD3378-28-57 09:56:00 Test Item Value Reference Range Interpretation Comments MCHC (test code = MCHC) 32.5 32.0-36.0 [facility] CenterWofcjnuSAXJKIRTBJ6802-96-30 09:56:00 Test Item Value Reference Range Interpretation Comments RDW (test code = RDW) 12.9 11.5-14.5 [place] [id number] 09:56:00 Test Item Value Reference Range Interpretation Comments MCV (test code = MCV) 89.7 80.0-94.0 [facility] CenterSfyvehbCWFZPGGAMH8477-61-71 09:56:00 Test Item Value Reference Range Interpretation Comments MCH (test code = MCH) 29.1 pg 27.0-31.0 [facility] CenterNysbcqbJFTJMJUKER1742-71-58 09:56:00 Test Item Value Reference Range Interpretation Comments Hct (test code = Hct) 37.0 42.0-54.0 [facility] CenterUhtnttrXJOELBZNFQ0390-83-89 09:56:00 Test Item Value Reference Range Interpretation Comments RBC (test code = RBC) 4.12 4.70-6.10 [facility] CenterDieipjgEDNEBSUXYX2708-66-97 09:56:00 Test Item Value Reference Range Interpretation Comments Hgb (test code = Hgb) 12.0 14.0-18.0 [facility] CenterDtodkyoBOAYUNOCGA4666-47-40 09:56:00 Test Item Value Reference Range Interpretation Comments WBC (test code = WBC) 8.8 3.7-10.4 [facility] CenterPyodfvuREFIHVYJZP1785-66-31 09:56:00 Test Item Value Reference Range Interpretation Comments Monocytes (test code = Monocytes) 9.7 2.0-12.0 [facility] CenterMshapyuDZIXGBYOKV7979-25-88 09:56:00 Test Item Value Reference Range Interpretation Comments Eosinophils (test code = 2.8 See_Comment [A utomated message] The Eosinophils) system which ge nerated this result tra nsmitted reference range : <=4.0. The reference r jillian was not used to int erpret this result as normal/abnormal . [facility] CenterHuacsyyVPHXWOASXY3052-61-50 09:56:00 Test Item Value Reference Range Interpretation Comments Segs (test code = Segs) 62.8 45.0-75.0 [facility] CenterDtgcltwVQCCCXGJBG4815-84-89 09:56:00 Test Item Value Reference Range Interpretation Comments Lymphocytes (test code = Lymphocytes) 23.8 20.0-40.0 [facility] CenterGytnpucQVKHJWZDDX8686-26-66 09:56:00 Test Item Value Reference Range Interpretation Comments Basophils # (test code 0.1 See_Comment [Aut omated message] The = Basophils #) system which generated this result tra nsmitted reference range : <=0.2. The reference r jillian was not used to int erpret this result as normal/abnormal . [facility] CenterDizcmtiGOHSZGRXKY9246-59-37 09:56:00 Test Item Value Reference Range Interpretation Comments Lymphocytes # (test code = Lymphocytes 2.1 1.0-5.5 #) [facility] CenterNazzkigSZKSSLMBTW5109-84-92 09:56:00 Test Item Value Reference Range Interpretation Comments Basophils (test code = 0.9 See_Comment [Aut omated message] The Basophils) system which ge nerated this result tra nsmitted reference range : <=1.0. The reference r jillian was not used to int erpret this result as normal/abnormal . [facility] CenterBznuekmQUTJGPKLQE7914-44-04 09:56:00 Test Item Value Reference Range Interpretation Comments Eosinophils # (test code 0.2 See_Comment [A utomated message] The = Eosinophils #) system whic h generated this result tra nsmitted reference range : <=0.5. The reference r jillian was not used to int erpret this result as normal/abnormal . [facility] CenterQzcgpjbOVSMLVAIKC2835-51-43 09:56:00 Test Item Value Reference Range Interpretation Comments Segs-Bands # (test code = Segs-Bands #) 5.5 1.5-8.1 [facility] CenterYqbhngjAGVFHCLIJZ0591-07-62 09:56:00 Test Item Value Reference Range Interpretation Comments Monocytes # (test code 0.9 See_Comment [Aut omated message] The = Monocytes #) system which generated this result tra nsmitted reference range : <=0.8. The reference r jillian was not used to int erpret this result as normal/abnormal . [facility]RO[facility] IXELXGZ1972-68-54 09:56:00 Test Item Value Reference Range Interpretation Comments Ca Norm WB (test code = Ca Norm WB) 0.93 1.05-1.25 [facility]2017-06-13 09:56:00 Test Item Value Reference Range Interpretation Comments Ca Ion WB (test code = Ca Ion WB) 0.97 1.05-1.25 [facility]2017-06-13 09:56:00 Test Item Value Reference Range Interpretation Comments A/G Ratio (test code = A/G Ratio) 0.6 0.7-1.6 [facility]2017-06-13 09:56:00 Test Item Value Reference Range Interpretation Comments AGAP (test code = AGAP) 16.5 10.0-20.0 [facility]2017-06-13 09:56:00 Test Item Value Reference Range Interpretation Comments B/C Ratio (test code = B/C Ratio) 6 6-25 [place] 604387-06-13 09:56:00 Test Item Value Reference Range Interpretation Comments Globulin (test code = Globulin) 4.6 2.7-4.2 [facility]2017-06-13 09:56:00 Test Item Value Reference Range Interpretation Comments Bili Total (test code = Bili Total) 0.3 0.2-1.3 [facility]2017-06-13 09:56:00 Test Item Value Reference Range Interpretation Comments Alk Phos (test code = Alk Phos) 123 39-136 [facility]2017-06-13 09:56:00 Test Item Value Reference Range Interpretation Comments AST (test code = AST) 12 See_Comment [Auto mated message] The system which ge nerated this result transmit cruz reference range : <=37. The reference range was not used to interpr et this result as gee l/abnormal. [facility]2017-06-13 09:56:00 Test Item Value Reference Range Interpretation Comments Total Protein (test code = Total 7.3 6.4-8.4 Protein) [facility]2017-06-13 09:56:00 Test Item Value Reference Range Interpretation Comments Albumin Lvl (test code = Albumin Lvl) 2.7 3.5-5.0 [facility]2017-06-13 09:56:00 Test Item Value Reference Range Interpretation Comments ALT (test code = ALT) 17 See_Comment [Auto mated message] The system which ge nerated this result transmit cruz reference range : <=65. The reference range was not used to interpr et this result as gee l/abnormal. [facility]2017-06-13 09:56:00 Test Item Value Reference Range Interpretation Comments CO2 (test code = CO2) 21 24-32 [facility]2017-06-13 09:56:00 Test Item Value Reference Range Interpretation Comments Calcium Lvl (test code = Calcium Lvl) 7.5 8.5-10.5 [facility]2017-06-13 09:56:00 Test Item Value Reference Range Interpretation Comments Potassium Lvl (test code = Potassium 4.5 3.5-5.1 Lvl) [facility]2017-06-13 09:56:00 Test Item Value Reference Range Interpretation Comments Creatinine Lvl (test code = Creatinine 9.18 0.50-1.40 Lvl) [facility]2017-06-13 09:56:00 Test Item Value Reference Range Interpretation Comments Sodium Lvl (test code = Sodium Lvl) 141 135-145 [facility]2017-06-13 09:56:00 Test Item Value Reference Range Interpretation Comments BUN (test code = BUN) 59 7-22 [facility]2017-06-13 09:56:00 Test Item Value Reference Range Interpretation Comments Chloride Lvl (test code = Chloride Lvl) 108 95-109 [facility]2017-06-13 09:56:00 Test Item Value Reference Range Interpretation Comments eGFR (test code = eGFR) 6 [facility]2017-06-13 09:56:00 Test Item Value Reference Range Interpretation Comments Glucose Lvl (test code = Glucose Lvl) 86 70-99 [facility]2017-06-13 09:56:00 Test Item Value Reference Range Interpretation Comments Phosphorus (test code = Phosphorus) 5.9 2.5-4.5 [facility]2017-06-13 09:56:00 Test Item Value Reference Range Interpretation Comments Magnesium Lvl (test code = Magnesium 2.0 1.8-2.4 Lvl) [facility] CenterDccshtdTTHXQVEURW7186-06-96 09:56:00 Test Item Value Reference Range Interpretation Comments Platelet (test code = Platelet) 225 133-450 [facility] CenterHplsdrnGAPCYRIYDI0255-10-89 09:56:00 Test Item Value Reference Range Interpretation Comments MPV (test code = MPV) 10.2 7.4-10.4 [facility] CenterDvbwqwhKFNVNSCMZG3635-98-17 09:56:00 Test Item Value Reference Range Interpretation Comments MCHC (test code = MCHC) 32.5 32.0-36.0 [facility] CenterLevngfdMLVTTFMTFN9545-27-45 09:56:00 Test Item Value Reference Range Interpretation Comments RDW (test code = RDW) 12.9 11.5-14.5 [facility] CenterNizihviFMOAVHRTYU5613-88-47 09:56:00 Test Item Value Reference Range Interpretation Comments MCV (test code = MCV) 89.7 80.0-94.0 [facility] CenterMzrxsjoTGCRNNRCER5289-25-21 09:56:00 Test Item Value Reference Range Interpretation Comments MCH (test code = MCH) 29.1 pg 27.0-31.0 [facility] CenterAbxlhfgHBMNCACFYT9880-13-84 09:56:00 Test Item Value Reference Range Interpretation Comments Hct (test code = Hct) 37.0 42.0-54.0 [facility] CenterIdodwplZFVSBIKQAZ1672-15-16 09:56:00 Test Item Value Reference Range Interpretation Comments RBC (test code = RBC) 4.12 4.70-6.10 [facility] CenterIauurdkEMJLDUWDIP0751-32-75 09:56:00 Test Item Value Reference Range Interpretation Comments Hgb (test code = Hgb) 12.0 14.0-18.0 [facility] CenterXtabzdbAYNRVDSZWT5131-04-26 09:56:00 Test Item Value Reference Range Interpretation Comments WBC (test code = WBC) 8.8 3.7-10.4 [facility] CenterByloqpdSNQOUWACVU0311-05-58 09:56:00 Test Item Value Reference Range Interpretation Comments Monocytes (test code = Monocytes) 9.7 2.0-12.0 [facility] CenterYczdqluUEEIFADAAZ6221-68-07 09:56:00 Test Item Value Reference Range Interpretation Comments Eosinophils (test code = 2.8 See_Comment [A utomated message] The Eosinophils) system which ge nerated this result tra nsmitted reference range : <=4.0. The reference r jillian was not used to int erpret this result as normal/abnormal . [facility] CenterPvleuprNSNNIWBOEK1409-27-62 09:56:00 Test Item Value Reference Range Interpretation Comments Segs (test code = Segs) 62.8 45.0-75.0 [facility] CenterCiznsyqJRARLMTIZU9281-70-11 09:56:00 Test Item Value Reference Range Interpretation Comments Lymphocytes (test code = Lymphocytes) 23.8 20.0-40.0 [facility] CenterVrkrkokJVDXZPACJN5740-65-73 09:56:00 Test Item Value Reference Range Interpretation Comments Basophils # (test code 0.1 See_Comment [Aut omated message] The = Basophils #) system which generated this result tra nsmitted reference range : <=0.2. The reference r jillian was not used to int erpret this result as normal/abnormal . [facility] CenterWgztcyhQLCQDTIMZV3560-66-52 09:56:00 Test Item Value Reference Range Interpretation Comments Lymphocytes # (test code = Lymphocytes 2.1 1.0-5.5 #) [facility] CenterRrgrdxsPFWHXQOKZB6800-72-66 09:56:00 Test Item Value Reference Range Interpretation Comments Basophils (test code = 0.9 See_Comment [Aut omated message] The Basophils) system which ge nerated this result tra nsmitted reference range : <=1.0. The reference r jillian was not used to int erpret this result as normal/abnormal . [facility] CenterNivpjmqRTPZIXJXFF9849-19-65 09:56:00 Test Item Value Reference Range Interpretation Comments Eosinophils # (test code 0.2 See_Comment [A utomated message] The = Eosinophils #) system whic h generated this result tra nsmitted reference range : <=0.5. The reference r jillian was not used to int erpret this result as normal/abnormal . [facility] CenterLxxcrouLUZLPQYIZC7265-57-97 09:56:00 Test Item Value Reference Range Interpretation Comments Segs-Bands # (test code = Segs-Bands #) 5.5 1.5-8.1 [facility] CenterDiytccyZVGANIXMKX2649-64-83 09:56:00 Test Item Value Reference Range Interpretation Comments Monocytes # (test code 0.9 See_Comment [Aut omated message] The = Monocytes #) system which generated this result tra nsmitted reference range : <=0.8. The reference r jillian was not used to int erpret this result as normal/abnormal . [facility] TYWPSLF5640[facility]-59 09:56:00 Test Item Value Reference Range Interpretation Comments Ca Norm WB (test code = Ca Norm WB) 0.93 1.05-1.25 [facility]RO[facility] WEXKHMG6976-96-70 09:56:00 Test Item Value Reference Range Interpretation Comments Ca Ion WB (test code = Ca Ion WB) 0.97 1.05-1.25 [facility] BONYW8931-44-09 09:56:00 Test Item Value Reference Range Interpretation Comments A/G Ratio (test code = A/G Ratio) 0.6 0.7-1.6 [facility]2017-06-13 09:56:00 Test Item Value Reference Range Interpretation Comments AGAP (test code = AGAP) 16.5 10.0-20.0 [facility]2017-06-13 09:56:00 Test Item Value Reference Range Interpretation Comments B/C Ratio (test code = B/C Ratio) 6 6-25 [facility]2017-06-13 09:56:00 Test Item Value Reference Range Interpretation Comments Globulin (test code = Globulin) 4.6 2.7-4.2 [facility]2017-06-13 09:56:00 Test Item Value Reference Range Interpretation Comments Bili Total (test code = Bili Total) 0.3 0.2-1.3 [facility]2017-06-13 09:56:00 Test Item Value Reference Range Interpretation Comments Alk Phos (test code = Alk Phos) 123 39-136 [facility]2017-06-13 09:56:00 Test Item Value Reference Range Interpretation Comments AST (test code = AST) 12 See_Comment [Auto mated message] The system which ge nerated this result transmit cruz reference range : <=37. The reference range was not used to interpr et this result as gee l/abnormal. [facility]2017-06-13 09:56:00 Test Item Value Reference Range Interpretation Comments Total Protein (test code = Total 7.3 6.4-8.4 Protein) [facility]2017-06-13 09:56:00 Test Item Value Reference Range Interpretation Comments Albumin Lvl (test code = Albumin Lvl) 2.7 3.5-5.0 [facility]2017-06-13 09:56:00 Test Item Value Reference Range Interpretation Comments ALT (test code = ALT) 17 See_Comment [Auto mated message] The system which ge nerated this result transmit cruz reference range : <=65. The reference range was not used to interpr et this result as gee l/abnormal. [facility]2017-06-13 09:56:00 Test Item Value Reference Range Interpretation Comments CO2 (test code = CO2) 21 24-32 [facility]2017-06-13 09:56:00 Test Item Value Reference Range Interpretation Comments Calcium Lvl (test code = Calcium Lvl) 7.5 8.5-10.5 [facility]2017-06-13 09:56:00 Test Item Value Reference Range Interpretation Comments Potassium Lvl (test code = Potassium 4.5 3.5-5.1 Lvl) [facility]2017-06-13 09:56:00 Test Item Value Reference Range Interpretation Comments Creatinine Lvl (test code = Creatinine 9.18 0.50-1.40 Lvl) [facility]2017-06-13 09:56:00 Test Item Value Reference Range Interpretation Comments Sodium Lvl (test code = Sodium Lvl) 141 135-145 [facility]2017-06-13 09:56:00 Test Item Value Reference Range Interpretation Comments BUN (test code = BUN) 59 7-22 [facility]2017-06-13 09:56:00 Test Item Value Reference Range Interpretation Comments Chloride Lvl (test code = Chloride Lvl) 108 95-109 [facility]2017-06-13 09:56:00 Test Item Value Reference Range Interpretation Comments eGFR (test code = eGFR) 6 [facility]2017-06-13 09:56:00 Test Item Value Reference Range Interpretation Comments Glucose Lvl (test code = Glucose Lvl) 86 70-99 [facility]2017-06-13 09:56:00 Test Item Value Reference Range Interpretation Comments Phosphorus (test code = Phosphorus) 5.9 2.5-4.5 [facility]2017-06-13 09:56:00 Test Item Value Reference Range Interpretation Comments Magnesium Lvl (test code = Magnesium 2.0 1.8-2.4 Lvl) [facility] CenterMifpstkORHVHLLMMB4576-04-97 09:56:00 Test Item Value Reference Range Interpretation Comments Platelet (test code = Platelet) 225 133-450 [facility] CenterSfzewouURYVGLYJPZ9540-82-42 09:56:00 Test Item Value Reference Range Interpretation Comments MPV (test code = MPV) 10.2 7.4-10.4 [facility] CenterOkhxzqvUMAVQKDVKD7270-54-18 09:56:00 Test Item Value Reference Range Interpretation Comments MCHC (test code = MCHC) 32.5 32.0-36.0 [facility] CenterMarosywDSELIFBBFM6018-69-48 09:56:00 Test Item Value Reference Range Interpretation Comments RDW (test code = RDW) 12.9 11.5-14.5 [facility] CenterOkigafxXUQJWKSZKR6433-76-34 09:56:00 Test Item Value Reference Range Interpretation Comments MCV (test code = MCV) 89.7 80.0-94.0 [facility] CenterYkvxlroNLILKMGYNQ9386-03-76 09:56:00 Test Item Value Reference Range Interpretation Comments MCH (test code = MCH) 29.1 pg 27.0-31.0 [facility] CenterTdvhmlmAZHEAWWMFV0288-22-15 09:56:00 Test Item Value Reference Range Interpretation Comments Hct (test code = Hct) 37.0 42.0-54.0 [facility] CenterVjprymaWAQTCWNUOL8735-43-04 09:56:00 Test Item Value Reference Range Interpretation Comments RBC (test code = RBC) 4.12 4.70-6.10 [facility] CenterVhtemwuJGZSNZNZDA1332-01-59 09:56:00 Test Item Value Reference Range Interpretation Comments Hgb (test code = Hgb) 12.0 14.0-18.0 [facility] CenterZyqtfgoFAYYYFZGMS1333-29-48 09:56:00 Test Item Value Reference Range Interpretation Comments WBC (test code = WBC) 8.8 3.7-10.4 [facility] CenterMnvfkspYCQWITIMZL0451-88-32 09:56:00 Test Item Value Reference Range Interpretation Comments Monocytes (test code = Monocytes) 9.7 2.0-12.0 [facility] CenterVcbegzwSJCQEGEFVM0752-49-59 09:56:00 Test Item Value Reference Range Interpretation Comments Eosinophils (test code = 2.8 See_Comment [A utomated message] The Eosinophils) system which ge nerated this result tra nsmitted reference range : <=4.0. The reference r jillian was not used to int erpret this result as normal/abnormal . [facility] CenterYilbcvlDHKGXVSBZU1495-07-56 09:56:00 Test Item Value Reference Range Interpretation Comments Segs (test code = Segs) 62.8 45.0-75.0 [facility] CenterDdgtpkvCCLMDEXGLZ0903-26-91 09:56:00 Test Item Value Reference Range Interpretation Comments Lymphocytes (test code = Lymphocytes) 23.8 20.0-40.0 [facility] CenterCfayzvsJDCNQVGIWJ1417-04-94 09:56:00 Test Item Value Reference Range Interpretation Comments Basophils # (test code 0.1 See_Comment [Aut omated message] The = Basophils #) system which generated this result tra nsmitted reference range : <=0.2. The reference r jillian was not used to int erpret this result as normal/abnormal . [facility] CenterXxfrqewTNBJFIJTIL1479-76-37 09:56:00 Test Item Value Reference Range Interpretation Comments Lymphocytes # (test code = Lymphocytes 2.1 1.0-5.5 #) [facility] CenterSfrdaspRKGQZDHDCM5374-58-85 09:56:00 Test Item Value Reference Range Interpretation Comments Basophils (test code = 0.9 See_Comment [Aut omated message] The Basophils) system which ge nerated this result tra nsmitted reference range : <=1.0. The reference r jillian was not used to int erpret this result as normal/abnormal . [facility] CenterMnnxvkyGEZDURHUBZ5786-91-58 09:56:00 Test Item Value Reference Range Interpretation Comments Eosinophils # (test code 0.2 See_Comment [A utomated message] The = Eosinophils #) system whic h generated this result tra nsmitted reference range : <=0.5. The reference r jillian was not used to int erpret this result as normal/abnormal . [facility] CenterWqlmjfkZIAXEABILO5015-24-02 09:56:00 Test Item Value Reference Range Interpretation Comments Segs-Bands # (test code = Segs-Bands #) 5.5 1.5-8.1 [facility] CenterWcvubotONLIKQVTGS3274-91-09 09:56:00 Test Item Value Reference Range Interpretation Comments Monocytes # (test code 0.9 See_Comment [Aut omated message] The = Monocytes #) system which generated this result tra nsmitted reference range : <=0.8. The reference r jillian was not used to int erpret this result as normal/abnormal . [facility]2017-06-13 09:56:00 Test Item Value Reference Range Interpretation Comments Ca Norm WB (test code = Ca Norm WB) 0.93 1.05-1.25 [facility]2017-06-13 09:56:00 Test Item Value Reference Range Interpretation Comments Ca Ion WB (test code = Ca Ion WB) 0.97 1.05-1.25 [facility]2017-06-13 09:56:00 Test Item Value Reference Range Interpretation Comments A/G Ratio (test code = A/G Ratio) 0.6 0.7-1.6 [place] 604387-06-13 09:56:00 Test Item Value Reference Range Interpretation Comments AGAP (test code = AGAP) 16.5 10.0-20.0 [facility]2017-06-13 09:56:00 Test Item Value Reference Range Interpretation Comments B/C Ratio (test code = B/C Ratio) 6 6-25 [facility]2017-06-13 09:56:00 Test Item Value Reference Range Interpretation Comments Globulin (test code = Globulin) 4.6 2.7-4.2 [facility]2017-06-13 09:56:00 Test Item Value Reference Range Interpretation Comments Bili Total (test code = Bili Total) 0.3 0.2-1.3 [facility]2017-06-13 09:56:00 Test Item Value Reference Range Interpretation Comments Alk Phos (test code = Alk Phos) 123 39-136 [facility]2017-06-13 09:56:00 Test Item Value Reference Range Interpretation Comments AST (test code = AST) 12 See_Comment [Auto mated message] The system which ge nerated this result transmit cruz reference range : <=37. The reference range was not used to interpr et this result as gee l/abnormal. [facility]2017-06-13 09:56:00 Test Item Value Reference Range Interpretation Comments Total Protein (test code = Total 7.3 6.4-8.4 Protein) [facility]2017-06-13 09:56:00 Test Item Value Reference Range Interpretation Comments Albumin Lvl (test code = Albumin Lvl) 2.7 3.5-5.0 [facility]2017-06-13 09:56:00 Test Item Value Reference Range Interpretation Comments ALT (test code = ALT) 17 See_Comment [Auto mated message] The system which ge nerated this result transmit cruz reference range : <=65. The reference range was not used to interpr et this result as gee l/abnormal. [facility]2017-06-13 09:56:00 Test Item Value Reference Range Interpretation Comments CO2 (test code = CO2) 21 24-32 [facility]2017-06-13 09:56:00 Test Item Value Reference Range Interpretation Comments Calcium Lvl (test code = Calcium Lvl) 7.5 8.5-10.5 [facility]2017-06-13 09:56:00 Test Item Value Reference Range Interpretation Comments Potassium Lvl (test code = Potassium 4.5 3.5-5.1 Lvl) [facility]2017-06-13 09:56:00 Test Item Value Reference Range Interpretation Comments Creatinine Lvl (test code = Creatinine 9.18 0.50-1.40 Lvl) [facility]2017-06-13 09:56:00 Test Item Value Reference Range Interpretation Comments Sodium Lvl (test code = Sodium Lvl) 141 135-145 [facility]2017-06-13 09:56:00 Test Item Value Reference Range Interpretation Comments BUN (test code = BUN) 59 7-22 [facility]2017-06-13 09:56:00 Test Item Value Reference Range Interpretation Comments Chloride Lvl (test code = Chloride Lvl) 108 95-109 [facility]2017-06-13 09:56:00 Test Item Value Reference Range Interpretation Comments eGFR (test code = eGFR) 6 [facility]2017-06-13 09:56:00 Test Item Value Reference Range Interpretation Comments Glucose Lvl (test code = Glucose Lvl) 86 70-99 [facility]2017-06-13 09:56:00 Test Item Value Reference Range Interpretation Comments Phosphorus (test code = Phosphorus) 5.9 2.5-4.5 [facility]2017-06-13 09:56:00 Test Item Value Reference Range Interpretation Comments Magnesium Lvl (test code = Magnesium 2.0 1.8-2.4 Lvl) [facility] CenterBooklvmNPSXHIJWWV4435-00-33 09:56:00 Test Item Value Reference Range Interpretation Comments Platelet (test code = Platelet) 225 133-450 [facility] CenterRzoihurEIABSNYMOB4848-80-91 09:56:00 Test Item Value Reference Range Interpretation Comments MPV (test code = MPV) 10.2 7.4-10.4 [facility] CenterAjdomplDXWDMCCOKU8775-78-42 09:56:00 Test Item Value Reference Range Interpretation Comments MCHC (test code = MCHC) 32.5 32.0-36.0 [facility] CenterBnzxlmwWNZUSALBKN6926-15-94 09:56:00 Test Item Value Reference Range Interpretation Comments RDW (test code = RDW) 12.9 11.5-14.5 [facility] CenterReyybgqGQRYFBSBPP0115-29-39 09:56:00 Test Item Value Reference Range Interpretation Comments MCV (test code = MCV) 89.7 80.0-94.0 [facility] CenterLaamohgULYXCCJKBX7572-50-74 09:56:00 Test Item Value Reference Range Interpretation Comments MCH (test code = MCH) 29.1 pg 27.0-31.0 [facility] CenterXwwllurACFSGXDHCV0140-76-50 09:56:00 Test Item Value Reference Range Interpretation Comments Hct (test code = Hct) 37.0 42.0-54.0 [facility] [facility]udlxpzNEOFSZPCET9323-79-93 09:56:00 Test Item Value Reference Range Interpretation Comments RBC (test code = RBC) 4.12 4.70-6.10 [facility] CenterAzdvmraDLQECZRQST5732-05-60 09:56:00 Test Item Value Reference Range Interpretation Comments Hgb (test code = Hgb) 12.0 14.0-18.0 [facility] CenterJbdtwhhQBOJYYRRHT9487-66-98 09:56:00 Test Item Value Reference Range Interpretation Comments WBC (test code = WBC) 8.8 3.7-10.4 [facility] CenterApgsjbsVQWMWJRKIS1679-60-98 09:56:00 Test Item Value Reference Range Interpretation Comments Monocytes (test code = Monocytes) 9.7 2.0-12.0 [facility] CenterTzninxcUKXXQKGUXC3634-59-81 09:56:00 Test Item Value Reference Range Interpretation Comments Eosinophils (test code = 2.8 See_Comment [A utomated message] The Eosinophils) system which ge nerated this result tra nsmitted reference range : <=4.0. The reference r jillian was not used to int erpret this result as normal/abnormal . [facility] CenterWufkjzeDMWWQLWQYN6333-01-42 09:56:00 Test Item Value Reference Range Interpretation Comments Segs (test code = Segs) 62.8 45.0-75.0 [place] [id number] 09:56:00 Test Item Value Reference Range Interpretation Comments Lymphocytes (test code = Lymphocytes) 23.8 20.0-40.0 [facility] CenterOnpzmnaOXQEYYUZXQ4635-99-31 09:56:00 Test Item Value Reference Range Interpretation Comments Basophils # (test code 0.1 See_Comment [Aut omated message] The = Basophils #) system which generated this result tra nsmitted reference range : <=0.2. The reference r jillian was not used to int erpret this result as normal/abnormal . [facility] CenterIfmhfeiTYDWXFXTQW4352-32-08 09:56:00 Test Item Value Reference Range Interpretation Comments Lymphocytes # (test code = Lymphocytes 2.1 1.0-5.5 #) [facility] CenterCptkttfRMDTYYDJVO0306-08-57 09:56:00 Test Item Value Reference Range Interpretation Comments Basophils (test code = 0.9 See_Comment [Aut omated message] The Basophils) system which ge nerated this result tra nsmitted reference range : <=1.0. The reference r jillian was not used to int erpret this result as normal/abnormal . [facility] CenterSwbenksNZJMBQIYHI1464-16-61 09:56:00 Test Item Value Reference Range Interpretation Comments Eosinophils # (test code 0.2 See_Comment [A utomated message] The = Eosinophils #) system whic h generated this result tra nsmitted reference range : <=0.5. The reference r jillian was not used to int erpret this result as normal/abnormal . [facility] CenterTmebrrbJJWVVRWVQL5216-98-29 09:56:00 Test Item Value Reference Range Interpretation Comments Segs-Bands # (test code = Segs-Bands #) 5.5 1.5-8.1 [facility] CenterPnpmnlmPYDFTKBDSU9743-07-80 09:56:00 Test Item Value Reference Range Interpretation Comments Monocytes # (test code 0.9 See_Comment [Aut omated message] The = Monocytes #) system which generated this result tra nsmitted reference range : <=0.8. The reference r jillian was not used to int erpret this result as normal/abnormal . [facility] ZKQKNOY1880[facility]-45 09:56:00 Test Item Value Reference Range Interpretation Comments Ca Norm WB (test code = Ca Norm WB) 0.93 1.05-1.25 [facility] CIDDXXQ7174-03-46 09:56:00 Test Item Value Reference Range Interpretation Comments Ca Ion WB (test code = Ca Ion WB) 0.97 1.05-1.25 [facility]ARD[facility] [id number] 22:14:00 Test Item Value Reference Range Interpretation Comments BNP (test code = BNP) 59 [facility] [id number] 22:14:00 Test Item Value Reference Range Interpretation Comments BNP (test code = BNP) 59 [facility] HJQLVLS9717-82-04 22:14:00 Test Item Value Reference Range Interpretation Comments BNP (test code = BNP) 59 [facility] [id number] 22:14:00 Test Item Value Reference Range Interpretation Comments BNP (test code = BNP) 59 [facility]annCHEM [id number] 22:13:00 Test Item Value Reference Range Interpretation Comments ALT (test code = ALT) 21 See_Comment [Auto mated message] The system which ge nerated this result transmit cruz reference range : <=65. The reference range was not used to interpr et this result as gee l/abnormal. [facility] [id number] 22:13:00 Test Item Value Reference Range Interpretation Comments Albumin Lvl (test code = Albumin Lvl) 2.9 3.5-5.0 [facility] SystemsannCHEM [id number] 22:13:00 Test Item Value Reference Range Interpretation Comments AST (test code = AST) 14 See_Comment [Auto mated message] The system which ge nerated this result transmit cruz reference range : <=37. The reference range was not used to interpr et this result as gee l/abnormal. [facility] [id number] 22:13:00 Test Item Value Reference Range Interpretation Comments Total Protein (test code = Total 7.8 6.4-8.4 Protein) [facility] [id number] 22:13:00 Test Item Value Reference Range Interpretation Comments Bili Total (test code = Bili Total) 0.2 0.2-1.3 [facility] [id number] 22:13:00 Test Item Value Reference Range Interpretation Comments Alk Phos (test code = Alk Phos) 133 39-136 [facility]2017-06-12 22:13:00 Test Item Value Reference Range Interpretation Comments Globulin (test code = Globulin) 4.9 2.7-4.2 [facility]2017-06-12 22:13:00 Test Item Value Reference Range Interpretation Comments B/C Ratio (test code = B/C Ratio) 6 6-25 [facility]2017-06-12 22:13:00 Test Item Value Reference Range Interpretation Comments A/G Ratio (test code = A/G Ratio) 0.6 0.7-1.6 [facility] CenterHjgcodpRUWHESKBEX3237-86-01 22:13:00 Test Item Value Reference Range Interpretation Comments MPV (test code = MPV) 10.7 7.4-10.4 [facility] CenterMrldhvwLZOQDAHILM0916-97-44 22:13:00 Test Item Value Reference Range Interpretation Comments MCV (test code = MCV) 89.4 80.0-94.0 [facility] CenterJtgqlrtQZSNKSAIRP1453-53-50 22:13:00 Test Item Value Reference Range Interpretation Comments MCHC (test code = MCHC) 33.0 32.0-36.0 [facility] CenterInumwcfIIYPRUYIZG5714-20-23 22:13:00 Test Item Value Reference Range Interpretation Comments RDW (test code = RDW) 13.0 11.5-14.5 [facility] CenterBaxfoveHKKSTINRLX6130-20-27 22:13:00 Test Item Value Reference Range Interpretation Comments MCH (test code = MCH) 29.5 pg 27.0-31.0 [facility] CenterVwgmnnlYDLLYVJVXH7736-44-78 22:13:00 Test Item Value Reference Range Interpretation Comments Platelet (test code = Platelet) 231 133-450 [facility] CenterKzlqfenOYCPSRBDAP9144-78-16 22:13:00 Test Item Value Reference Range Interpretation Comments Hgb (test code = Hgb) 12.0 14.0-18.0 [facility] CenterHvgqwlhLPICUCBNKL4458-65-88 22:13:00 Test Item Value Reference Range Interpretation Comments Hct (test code = Hct) 36.5 42.0-54.0 [facility] CenterPwlacauFOFOPLVIMI8425-65-07 22:13:00 Test Item Value Reference Range Interpretation Comments RBC (test code = RBC) 4.09 4.70-6.10 [facility] CenterMtqkmxpHVHOXYKMVA6361-50-82 22:13:00 Test Item Value Reference Range Interpretation Comments WBC (test code = WBC) 8.0 3.7-10.4 [facility] CenterKufomgeGDZKIJWEUJ1089-46-32 22:13:00 Test Item Value Reference Range Interpretation Comments Basophils # (test code 0.0 See_Comment [Aut omated message] The = Basophils #) system which generated this result tra nsmitted reference range : <=0.2. The reference r jillian was not used to int erpret this result as normal/abnormal . [facility] CenterWjvwdxqNOBTQLETVM5185-35-52 22:13:00 Test Item Value Reference Range Interpretation Comments Lymphocytes # (test code = Lymphocytes 1.5 1.0-5.5 #) [facility] CenterTzxhdtqUGDQTKCYKE0304-65-92 22:13:00 Test Item Value Reference Range Interpretation Comments Segs-Bands # (test code = Segs-Bands #) 5.8 1.5-8.1 [facility] CenterMijqilmXXREFGQSIA4674-96-59 22:13:00 Test Item Value Reference Range Interpretation Comments Eosinophils # (test code 0.2 See_Comment [A utomated message] The = Eosinophils #) system wh h generated this result tra nsmitted reference range : <=0.5. The reference r jillian was not used to int erpret this result as normal/abnormal . [facility] CenterOagmgbgVDUCGQVPXK7268-64-67 22:13:00 Test Item Value Reference Range Interpretation Comments Monocytes # (test code 0.4 See_Comment [Aut omated message] The = Monocytes #) system which generated this result tra nsmitted reference range : <=0.8. The reference r jillian was not used to int erpret this result as normal/abnormal . [facility] CenterKkbyopwJLLQNOFRTT1545-01-07 22:13:00 Test Item Value Reference Range Interpretation Comments Basophils (test code = 0.5 See_Comment [Aut omated message] The Basophils) system which ge nerated this result tra nsmitted reference range : <=1.0. The reference r jillian was not used to int erpret this result as normal/abnormal . [facility] CenterHwwytpyNWUYWDCFMO1326-68-85 22:13:00 Test Item Value Reference Range Interpretation Comments Eosinophils (test code = 2.8 See_Comment [A utomated message] The Eosinophils) system which ge nerated this result tra nsmitted reference range : <=4.0. The reference r jillian was not used to int erpret this result as normal/abnormal . [facility] CenterUomjhuyRDRKFYIWNS1000-01-39 22:13:00 Test Item Value Reference Range Interpretation Comments Lymphocytes (test code = Lymphocytes) 19.0 20.0-40.0 [facility] CenterFoorvftWPCWDRCFTI6023-08-35 22:13:00 Test Item Value Reference Range Interpretation Comments Monocytes (test code = Monocytes) 5.6 2.0-12.0 [facility] CenterOirtbhpNWTHWGCVID6223-93-09 22:13:00 Test Item Value Reference Range Interpretation Comments Segs (test code = Segs) 72.1 45.0-75.0 [facility] [id number] 22:13:00 Test Item Value Reference Range Interpretation Comments UA Spec Grav (test code = UA Spec Grav) 1.014 [facility] [id number] 22:13:00 Test Item Value Reference Range Interpretation Comments UA Urobilinogen (test code = UA <=1.0 mg/dL 0.1-1.0 Urobilinogen) [facility] [id number] 22:13:00 Test Item Value Reference Range Interpretation Comments UA Bili (test code = Negative *NA*(03/10/17 UA Bili) 5:13 PM) [facility] [id number] 22:13:00 Test Item Value Reference Range Interpretation Comments UA Ketones (test code = UA Negative mg/dL Ketones) [facility] [id number] 22:13:00 Test Item Value Reference Range Interpretation Comments UA Glucose (test code = UA Glucose) 50 mg/dL [facility] [id number] 22:13:00 Test Item Value Reference Range Interpretation Comments UA Blood (test code = Small *ABN*(03/10/17 UA Blood) 5:13 PM) [facility] [id number] 22:13:00 Test Item Value Reference Range Interpretation Comments UA Color (test code = Light Yellow UA Color) *NA*(03/10/17 5:13 PM) [facility] [id number] 22:13:00 Test Item Value Reference Range Interpretation Comments UA Mucus (test code = UA Mucus) Few /LPF [facility] [id number] 22:13:00 Test Item Value Reference Range Interpretation Comments UA RBC (test code = 27 See_Comment [Automa cruz message] The UA RBC) system which ge nerated this result transmit cruz reference range : <=2. The reference range was not used to interpr et this result as gee l/abnormal. [facility] [id number] 22:13:00 Test Item Value Reference Range Interpretation Comments UA Hyal Cast (test 1 See_Comment [Automat ed message] The code = UA Hyal Cast) system which generated this result transmit cruz reference range : <=2. The reference range was not used to interpr et this result as gee l/abnormal. [facility] [id number] 22:13:00 Test Item Value Reference Range Interpretation Comments UA Turbidity (test code = Clear (03/10/17 5:13 UA Turbidity) PM) [facility] [id number] 22:13:00 Test Item Value Reference Range Interpretation Comments UA Protein (test code = UA >=300 mg/dL Protein) [facility] [id number] 22:13:00 Test Item Value Reference Range Interpretation Comments UA pH (test code = UA pH) 6.0 5.0-8.0 [facility] [id number] 22:13:00 Test Item Value Reference Range Interpretation Comments UA Nitrite (test code Negative (03/10/17 5:13 = UA Nitrite) PM) [facility] [id number] 22:13:00 Test Item Value Reference Range Interpretation Comments UA Leuk Est (test code Trace *ABN*(03/10/17 = UA Leuk Est) 5:13 PM) [facility] [id number] 22:13:00 Test Item Value Reference Range Interpretation Comments UA Sq Epi (test code = UA Sq Occasional /LPF Epi) [facility] [id number] 22:13:00 Test Item Value Reference Range Interpretation Comments UA WBC (test code = 22 See_Comment [Automa cruz message] The UA WBC) system which ge nerated this result transmit cruz reference range : <=5. The reference range was not used to interpr et this result as gee l/abnormal. [facility]2017-06-12 22:13:00 Test Item Value Reference Range Interpretation Comments ALT (test code = ALT) 21 See_Comment [Auto mated message] The system which ge nerated this result transmit cruz reference range : <=65. The reference range was not used to interpr et this result as gee l/abnormal. [facility]2017-06-12 22:13:00 Test Item Value Reference Range Interpretation Comments Albumin Lvl (test code = Albumin Lvl) 2.9 3.5-5.0 [facility]2017-06-12 22:13:00 Test Item Value Reference Range Interpretation Comments AST (test code = AST) 14 See_Comment [Auto mated message] The system which ge nerated this result transmit cruz reference range : <=37. The reference range was not used to interpr et this result as gee l/abnormal. [facility]2017-06-12 22:13:00 Test Item Value Reference Range Interpretation Comments Total Protein (test code = Total 7.8 6.4-8.4 Protein) [facility]2017-06-12 22:13:00 Test Item Value Reference Range Interpretation Comments Bili Total (test code = Bili Total) 0.2 0.2-1.3 [facility]2017-06-12 22:13:00 Test Item Value Reference Range Interpretation Comments Alk Phos (test code = Alk Phos) 133 39-136 [facility]2017-06-12 22:13:00 Test Item Value Reference Range Interpretation Comments Globulin (test code = Globulin) 4.9 2.7-4.2 [facility]2017-06-12 22:13:00 Test Item Value Reference Range Interpretation Comments B/C Ratio (test code = B/C Ratio) 6 6-25 [facility]2017-06-12 22:13:00 Test Item Value Reference Range Interpretation Comments A/G Ratio (test code = A/G Ratio) 0.6 0.7-1.6 [facility] CenterQujxkxyKSRPIKYELH6308-85-45 22:13:00 Test Item Value Reference Range Interpretation Comments MPV (test code = MPV) 10.7 7.4-10.4 [facility] CenterVdplyebIJMNKRVJMX0063-86-33 22:13:00 Test Item Value Reference Range Interpretation Comments MCV (test code = MCV) 89.4 80.0-94.0 [facility] CenterJyhddfbWDMITRPGMH9416-47-15 22:13:00 Test Item Value Reference Range Interpretation Comments MCHC (test code = MCHC) 33.0 32.0-36.0 [facility] CenterHpgepgkVKFMWAKGLY8815-93-70 22:13:00 Test Item Value Reference Range Interpretation Comments RDW (test code = RDW) 13.0 11.5-14.5 [facility] CenterMsfhevdWBTWONBKMB8229-16-99 22:13:00 Test Item Value Reference Range Interpretation Comments MCH (test code = MCH) 29.5 pg 27.0-31.0 [facility] CenterAimkkqoFOVDHMPASS0451-63-79 22:13:00 Test Item Value Reference Range Interpretation Comments Platelet (test code = Platelet) 231 133-450 [facility] CenterOnakcgrPKOQUIGDBC6672-96-39 22:13:00 Test Item Value Reference Range Interpretation Comments Hgb (test code = Hgb) 12.0 14.0-18.0 [facility] CenterYuwhqboOKPNKBMZAJ5152-18-87 22:13:00 Test Item Value Reference Range Interpretation Comments Hct (test code = Hct) 36.5 42.0-54.0 [facility] CenterAnrmngqNBBYBHNDFH5119-26-00 22:13:00 Test Item Value Reference Range Interpretation Comments RBC (test code = RBC) 4.09 4.70-6.10 [facility] CenterXygnuboXCFNOHHRUO2890-27-03 22:13:00 Test Item Value Reference Range Interpretation Comments WBC (test code = WBC) 8.0 3.7-10.4 [facility] CenterMlzamfmMDXDWPEDOQ6816-69-30 22:13:00 Test Item Value Reference Range Interpretation Comments Basophils # (test code 0.0 See_Comment [Aut omated message] The = Basophils #) system which generated this result tra nsmitted reference range : <=0.2. The reference r jillian was not used to int erpret this result as normal/abnormal . [facility] CenterWsaxaeeRORXXICPWY9591-91-58 22:13:00 Test Item Value Reference Range Interpretation Comments Lymphocytes # (test code = Lymphocytes 1.5 1.0-5.5 #) [facility] CenterCorhpxhCZKBOUFAVZ2705-72-39 22:13:00 Test Item Value Reference Range Interpretation Comments Segs-Bands # (test code = Segs-Bands #) 5.8 1.5-8.1 [facility] CenterMmsnuyeNNEDOEBOTN9574-87-01 22:13:00 Test Item Value Reference Range Interpretation Comments Eosinophils # (test code 0.2 See_Comment [A utomated message] The = Eosinophils #) system whic h generated this result tra nsmitted reference range : <=0.5. The reference r jillian was not used to int erpret this result as normal/abnormal . [facility] CenterDldcglnVKPMLBPQUK8257-54-28 22:13:00 Test Item Value Reference Range Interpretation Comments Monocytes # (test code 0.4 See_Comment [Aut omated message] The = Monocytes #) system which generated this result tra nsmitted reference range : <=0.8. The reference r jillian was not used to int erpret this result as normal/abnormal . [facility] CenterTyiufopZTUVCYOYJO8552-28-04 22:13:00 Test Item Value Reference Range Interpretation Comments Basophils (test code = 0.5 See_Comment [Aut omated message] The Basophils) system which ge nerated this result tra nsmitted reference range : <=1.0. The reference r jillian was not used to int erpret this result as normal/abnormal . [facility] CenterErjmefoMGXRFVMUMI3973-72-72 22:13:00 Test Item Value Reference Range Interpretation Comments Eosinophils (test code = 2.8 See_Comment [A utomated message] The Eosinophils) system which ge nerated this result tra nsmitted reference range : <=4.0. The reference r jillian was not used to int erpret this result as normal/abnormal . [facility] CenterZydipkzKHWMBWNWWX5850-16-47 22:13:00 Test Item Value Reference Range Interpretation Comments Lymphocytes (test code = Lymphocytes) 19.0 20.0-40.0 [facility] CenterQryfsrdPTVBECCVLC0114-17-02 22:13:00 Test Item Value Reference Range Interpretation Comments Monocytes (test code = Monocytes) 5.6 2.0-12.0 [facility] CenterXpfcrebYYTUPLCLAD9047-90-30 22:13:00 Test Item Value Reference Range Interpretation Comments Segs (test code = Segs) 72.1 45.0-75.0 [facility]2017-06-12 22:13:00 Test Item Value Reference Range Interpretation Comments UA Spec Grav (test code = UA Spec Grav) 1.014 [facility] [id number] 22:13:00 Test Item Value Reference Range Interpretation Comments UA Urobilinogen (test code = UA <=1.0 mg/dL 0.1-1.0 Urobilinogen) [facility] [id number] 22:13:00 Test Item Value Reference Range Interpretation Comments UA Bili (test code = Negative *NA*(03/10/17 UA Bili) 5:13 PM) [facility] [id number] 22:13:00 Test Item Value Reference Range Interpretation Comments UA Ketones (test code = UA Negative mg/dL Ketones) [facility] [id number] 22:13:00 Test Item Value Reference Range Interpretation Comments UA Glucose (test code = UA Glucose) 50 mg/dL [facility] [id number] 22:13:00 Test Item Value Reference Range Interpretation Comments UA Blood (test code = Small *ABN*(03/10/17 UA Blood) 5:13 PM) [facility] [id number] 22:13:00 Test Item Value Reference Range Interpretation Comments UA Color (test code = Light Yellow UA Color) *NA*(03/10/17 5:13 PM) [facility] [id number] 22:13:00 Test Item Value Reference Range Interpretation Comments UA Mucus (test code = UA Mucus) Few /LPF [facility] [id number] 22:13:00 Test Item Value Reference Range Interpretation Comments UA RBC (test code = 27 See_Comment [Automa cruz message] The UA RBC) system which ge nerated this result transmit cruz reference range : <=2. The reference range was not used to interpr et this result as gee l/abnormal. [facility] [id number] 22:13:00 Test Item Value Reference Range Interpretation Comments UA Hyal Cast (test 1 See_Comment [Automat ed message] The code = UA Hyal Cast) system which generated this result transmit cruz reference range : <=2. The reference range was not used to interpr et this result as gee l/abnormal. [facility] [id number] 22:13:00 Test Item Value Reference Range Interpretation Comments UA Turbidity (test code = Clear (03/10/17 5:13 UA Turbidity) PM) [facility] [id number] 22:13:00 Test Item Value Reference Range Interpretation Comments UA Protein (test code = UA >=300 mg/dL Protein) [facility] [id number] 22:13:00 Test Item Value Reference Range Interpretation Comments UA pH (test code = UA pH) 6.0 5.0-8.0 [facility] [id number] 22:13:00 Test Item Value Reference Range Interpretation Comments UA Nitrite (test code Negative (03/10/17 5:13 = UA Nitrite) PM) [facility] [id number] 22:13:00 Test Item Value Reference Range Interpretation Comments UA Leuk Est (test code Trace *ABN*(03/10/17 = UA Leuk Est) 5:13 PM) [facility] [id number] 22:13:00 Test Item Value Reference Range Interpretation Comments UA Sq Epi (test code = UA Sq Occasional /LPF Epi) [facility] [id number] 22:13:00 Test Item Value Reference Range Interpretation Comments UA WBC (test code = 22 See_Comment [Automa cruz message] The UA WBC) system which ge nerated this result transmit cruz reference range : <=5. The reference range was not used to interpr et this result as gee l/abnormal. [facility]2017-06-12 22:13:00 Test Item Value Reference Range Interpretation Comments ALT (test code = ALT) 21 See_Comment [Auto mated message] The system which ge nerated this result transmit cruz reference range : <=65. The reference range was not used to interpr et this result as gee l/abnormal. [facility]2017-06-12 22:13:00 Test Item Value Reference Range Interpretation Comments Albumin Lvl (test code = Albumin Lvl) 2.9 3.5-5.0 [facility]2017-06-12 22:13:00 Test Item Value Reference Range Interpretation Comments AST (test code = AST) 14 See_Comment [Auto mated message] The system which ge nerated this result transmit cruz reference range : <=37. The reference range was not used to interpr et this result as gee l/abnormal. [facility]2017-06-12 22:13:00 Test Item Value Reference Range Interpretation Comments Total Protein (test code = Total 7.8 6.4-8.4 Protein) [facility]2017-06-12 22:13:00 Test Item Value Reference Range Interpretation Comments Bili Total (test code = Bili Total) 0.2 0.2-1.3 [facility]2017-06-12 22:13:00 Test Item Value Reference Range Interpretation Comments Alk Phos (test code = Alk Phos) 133 39-136 [facility]2017-06-12 22:13:00 Test Item Value Reference Range Interpretation Comments Globulin (test code = Globulin) 4.9 2.7-4.2 [facility]2017-06-12 22:13:00 Test Item Value Reference Range Interpretation Comments B/C Ratio (test code = B/C Ratio) 6 6-25 [facility]2017-06-12 22:13:00 Test Item Value Reference Range Interpretation Comments A/G Ratio (test code = A/G Ratio) 0.6 0.7-1.6 [facility] [facility] CenterFmqsqqqXALBEXYAES0981-08-43 22:13:00 Test Item Value Reference Range Interpretation Comments MPV (test code = MPV) 10.7 7.4-10.4 [facility] CenterWysbyplUATLYVWJMF0349-64-46 22:13:00 Test Item Value Reference Range Interpretation Comments MCV (test code = MCV) 89.4 80.0-94.0 [facility] CenterVunfscbWJSBEJHGNK7405-33-37 22:13:00 Test Item Value Reference Range Interpretation Comments MCHC (test code = MCHC) 33.0 32.0-36.0 [facility] CenterIvxdlftNJWCLJOUWK1523-97-66 22:13:00 Test Item Value Reference Range Interpretation Comments RDW (test code = RDW) 13.0 11.5-14.5 [facility] CenterHgvwpsbQKUOAYYIHY5103-58-48 22:13:00 Test Item Value Reference Range Interpretation Comments MCH (test code = MCH) 29.5 pg 27.0-31.0 [facility] CenterHxwwalaVEPRKGCOQR8488-94-66 22:13:00 Test Item Value Reference Range Interpretation Comments Platelet (test code = Platelet) 231 133-450 [facility] CenterImhelrlBOBOZIZQUZ2622-90-59 22:13:00 Test Item Value Reference Range Interpretation Comments Hgb (test code = Hgb) 12.0 14.0-18.0 [facility] CenterAhoxulbELMQSHVOUD1530-85-09 22:13:00 Test Item Value Reference Range Interpretation Comments Hct (test code = Hct) 36.5 42.0-54.0 [facility] CenterSdaylzzEEUNKHSCBO9024-93-03 22:13:00 Test Item Value Reference Range Interpretation Comments RBC (test code = RBC) 4.09 4.70-6.10 [facility] CenterXljmxbnWLQJRCUTVE9900-85-36 22:13:00 Test Item Value Reference Range Interpretation Comments WBC (test code = WBC) 8.0 3.7-10.4 [facility] CenterXxfzadzVQBCPEHBMB6782-89-76 22:13:00 Test Item Value Reference Range Interpretation Comments Basophils # (test code 0.0 See_Comment [Aut omated message] The = Basophils #) system which generated this result tra nsmitted reference range : <=0.2. The reference r jillian was not used to int erpret this result as normal/abnormal . [facility] CenterOuftvviTISZNPBATZ8813-82-02 22:13:00 Test Item Value Reference Range Interpretation Comments Lymphocytes # (test code = Lymphocytes 1.5 1.0-5.5 #) [facility] CenterIdxbxgsVHKCPODWFJ1692-68-38 22:13:00 Test Item Value Reference Range Interpretation Comments Segs-Bands # (test code = Segs-Bands #) 5.8 1.5-8.1 [facility] CenterYmpeegbVWCDULORPR1557-28-46 22:13:00 Test Item Value Reference Range Interpretation Comments Eosinophils # (test code 0.2 See_Comment [A utomated message] The = Eosinophils #) system whic h generated this result tra nsmitted reference range : <=0.5. The reference r jillian was not used to int erpret this result as normal/abnormal . [facility] CenterBduvmhuEBZXTPWKFS4137-41-34 22:13:00 Test Item Value Reference Range Interpretation Comments Monocytes # (test code 0.4 See_Comment [Aut omated message] The = Monocytes #) system which generated this result tra nsmitted reference range : <=0.8. The reference r jillian was not used to int erpret this result as normal/abnormal . [place] [id number] 22:13:00 Test Item Value Reference Range Interpretation Comments Basophils (test code = 0.5 See_Comment [Aut omated message] The Basophils) system which ge nerated this result tra nsmitted reference range : <=1.0. The reference r jillian was not used to int erpret this result as normal/abnormal . [facility] CenterRylwtvuNXJVIQFUDJ5166-66-66 22:13:00 Test Item Value Reference Range Interpretation Comments Eosinophils (test code = 2.8 See_Comment [A utomated message] The Eosinophils) system which ge nerated this result tra nsmitted reference range : <=4.0. The reference r jillian was not used to int erpret this result as normal/abnormal . [facility] CenterDxhrqtbXYZHJHWLAL2258-90-61 22:13:00 Test Item Value Reference Range Interpretation Comments Lymphocytes (test code = Lymphocytes) 19.0 20.0-40.0 [facility] CenterDoscfiySTVZQPBJVL5195-75-36 22:13:00 Test Item Value Reference Range Interpretation Comments Monocytes (test code = Monocytes) 5.6 2.0-12.0 [facility] CenterSjemqsaAZEPNJKTNW5044-05-44 22:13:00 Test Item Value Reference Range Interpretation Comments Segs (test code = Segs) 72.1 45.0-75.0 [facility]2017-06-12 22:13:00 Test Item Value Reference Range Interpretation Comments UA Spec Grav (test code = UA Spec Grav) 1.014 [facility]2017-06-12 22:13:00 Test Item Value Reference Range Interpretation Comments UA Urobilinogen (test code = UA <=1.0 mg/dL 0.1-1.0 Urobilinogen) [facility]2017-06-12 22:13:00 Test Item Value Reference Range Interpretation Comments UA Bili (test code = Negative *NA*(03/10/17 UA Bili) 5:13 PM) [facility]2017-06-12 22:13:00 Test Item Value Reference Range Interpretation Comments UA Ketones (test code = UA Negative mg/dL Ketones) [facility]2017-06-12 22:13:00 Test Item Value Reference Range Interpretation Comments UA Glucose (test code = UA Glucose) 50 mg/dL [facility] [id number] 22:13:00 Test Item Value Reference Range Interpretation Comments UA Blood (test code = Small *ABN*(03/10/17 UA Blood) 5:13 PM) [facility] [id number] 22:13:00 Test Item Value Reference Range Interpretation Comments UA Color (test code = Light Yellow UA Color) *NA*(03/10/17 5:13 PM) [facility] [id number] 22:13:00 Test Item Value Reference Range Interpretation Comments UA Mucus (test code = UA Mucus) Few /LPF [facility] [id number] 22:13:00 Test Item Value Reference Range Interpretation Comments UA RBC (test code = 27 See_Comment [Automa cruz message] The UA RBC) system which ge nerated this result transmit cruz reference range : <=2. The reference range was not used to interpr et this result as gee l/abnormal. [facility] [id number] 22:13:00 Test Item Value Reference Range Interpretation Comments UA Hyal Cast (test 1 See_Comment [Automat ed message] The code = UA Hyal Cast) system which generated this result transmit cruz reference range : <=2. The reference range was not used to interpr et this result as gee l/abnormal. [facility] [id number] 22:13:00 Test Item Value Reference Range Interpretation Comments UA Turbidity (test code = Clear (03/10/17 5:13 UA Turbidity) PM) [facility] [id number] 22:13:00 Test Item Value Reference Range Interpretation Comments UA Protein (test code = UA >=300 mg/dL Protein) [facility] [id number] 22:13:00 Test Item Value Reference Range Interpretation Comments UA pH (test code = UA pH) 6.0 5.0-8.0 [facility] [id number] 22:13:00 Test Item Value Reference Range Interpretation Comments UA Nitrite (test code Negative (03/10/17 5:13 = UA Nitrite) PM) [facility] [id number] 22:13:00 Test Item Value Reference Range Interpretation Comments UA Leuk Est (test code Trace *ABN*(03/10/17 = UA Leuk Est) 5:13 PM) [facility] [id number] 22:13:00 Test Item Value Reference Range Interpretation Comments UA Sq Epi (test code = UA Sq Occasional /LPF Epi) [facility] [id number] 22:13:00 Test Item Value Reference Range Interpretation Comments UA WBC (test code = 22 See_Comment [Automa cruz message] The UA WBC) system which ge nerated this result transmit cruz reference range : <=5. The reference range was not used to interpr et this result as gee l/abnormal. [facility] [place] [id number] 22:13:00 Test Item Value Reference Range Interpretation Comments ALT (test code = ALT) 21 See_Comment [Auto mated message] The system which ge nerated this result transmit cruz reference range : <=65. The reference range was not used to interpr et this result as gee l/abnormal. [facility] [place] [id number] 22:13:00 Test Item Value Reference Range Interpretation Comments Albumin Lvl (test code = Albumin Lvl) 2.9 3.5-5.0 [facility] [id number] 22:13:00 Test Item Value Reference Range Interpretation Comments AST (test code = AST) 14 See_Comment [Auto mated message] The system which ge nerated this result transmit cruz reference range : <=37. The reference range was not used to interpr et this result as gee l/abnormal. [facility] [place] [id number] 22:13:00 Test Item Value Reference Range Interpretation Comments Total Protein (test code = Total 7.8 6.4-8.4 Protein) [facility]Smart[facility] [id number] 22:13:00 Test Item Value Reference Range Interpretation Comments Bili Total (test code = Bili Total) 0.2 0.2-1.3 [facility] [id number] 22:13:00 Test Item Value Reference Range Interpretation Comments Alk Phos (test code = Alk Phos) 133 39-136 [facility] [id number] 22:13:00 Test Item Value Reference Range Interpretation Comments Globulin (test code = Globulin) 4.9 2.7-4.2 [facility] [id number] 22:13:00 Test Item Value Reference Range Interpretation Comments B/C Ratio (test code = B/C Ratio) 6 6-25 [facility]2017-06-12 22:13:00 Test Item Value Reference Range Interpretation Comments A/G Ratio (test code = A/G Ratio) 0.6 0.7-1.6 [facility] CenterBbhqawzXPWJXHJAMG0781-66-71 22:13:00 Test Item Value Reference Range Interpretation Comments MPV (test code = MPV) 10.7 7.4-10.4 [facility] CenterRtuqfdmEABYYMJUBA1109-36-23 22:13:00 Test Item Value Reference Range Interpretation Comments MCV (test code = MCV) 89.4 80.0-94.0 [facility] CenterRopdibqSTANTHJFLN5094-71-63 22:13:00 Test Item Value Reference Range Interpretation Comments MCHC (test code = MCHC) 33.0 32.0-36.0 [facility] CenterOyhhwdbUAWZCGUPMO9667-24-23 22:13:00 Test Item Value Reference Range Interpretation Comments RDW (test code = RDW) 13.0 11.5-14.5 [facility] CenterRrnucoiUOSOIBQCXY9602-95-84 22:13:00 Test Item Value Reference Range Interpretation Comments MCH (test code = MCH) 29.5 pg 27.0-31.0 [facility] CenterYfijpqkGWVBKBUOHR4405-69-50 22:13:00 Test Item Value Reference Range Interpretation Comments Platelet (test code = Platelet) 231 133-450 [facility] CenterPjxkjrmJJFMAYWEAH0926-34-05 22:13:00 Test Item Value Reference Range Interpretation Comments Hgb (test code = Hgb) 12.0 14.0-18.0 [facility] CenterXuzmxhvXHNMLXAEJV3104-06-67 22:13:00 Test Item Value Reference Range Interpretation Comments Hct (test code = Hct) 36.5 42.0-54.0 [facility] CenterPsweybqJTSXJKWYJJ8279-22-50 22:13:00 Test Item Value Reference Range Interpretation Comments RBC (test code = RBC) 4.09 4.70-6.10 [facility] CenterEnedwyvLZYQUJIQNH3031-25-54 22:13:00 Test Item Value Reference Range Interpretation Comments WBC (test code = WBC) 8.0 3.7-10.4 [facility] CenterNyigoydTCWKHJHGKI0561-66-21 22:13:00 Test Item Value Reference Range Interpretation Comments Basophils # (test code 0.0 See_Comment [Aut omated message] The = Basophils #) system which generated this result tra nsmitted reference range : <=0.2. The reference r jillian was not used to int erpret this result as normal/abnormal . [facility] CenterDfyzlseIJYSUKYKXJ9943-64-78 22:13:00 Test Item Value Reference Range Interpretation Comments Lymphocytes # (test code = Lymphocytes 1.5 1.0-5.5 #) [facility] [id number] 22:13:00 Test Item Value Reference Range Interpretation Comments Segs-Bands # (test code = Segs-Bands #) 5.8 1.5-8.1 [facility] CenterVkwrqlaAVXPTJVNBO6923-25-22 22:13:00 Test Item Value Reference Range Interpretation Comments Eosinophils # (test code 0.2 See_Comment [A utomated message] The = Eosinophils #) system whic h generated this result tra nsmitted reference range : <=0.5. The reference r jillian was not used to int erpret this result as normal/abnormal . [facility] CenterUroqbbbHCPNWJCMXE0261-93-29 22:13:00 Test Item Value Reference Range Interpretation Comments Monocytes # (test code 0.4 See_Comment [Aut omated message] The = Monocytes #) system which generated this result tra nsmitted reference range : <=0.8. The reference r jillian was not used to int erpret this result as normal/abnormal . [facility] CenterViitqcxLXAFXLIRPW6499-39-74 22:13:00 Test Item Value Reference Range Interpretation Comments Basophils (test code = 0.5 See_Comment [Aut omated message] The Basophils) system which ge nerated this result tra nsmitted reference range : <=1.0. The reference r jillian was not used to int erpret this result as normal/abnormal . [facility] CenterPftepdlVIGCZGICYK8394-40-83 22:13:00 Test Item Value Reference Range Interpretation Comments Eosinophils (test code = 2.8 See_Comment [A utomated message] The Eosinophils) system which ge nerated this result tra nsmitted reference range : <=4.0. The reference r jillian was not used to int erpret this result as normal/abnormal . [facility] CenterHycwnoaALFCJIOHWS5078-77-39 22:13:00 Test Item Value Reference Range Interpretation Comments Lymphocytes (test code = Lymphocytes) 19.0 20.0-40.0 [facility] CenterBeiflubWTHVGWNWTT4568-35-33 22:13:00 Test Item Value Reference Range Interpretation Comments Monocytes (test code = Monocytes) 5.6 2.0-12.0 [facility] CenterFxivkzaPCLFKGWFCB6183-43-81 22:13:00 Test Item Value Reference Range Interpretation Comments Segs (test code = Segs) 72.1 45.0-75.0 [facility] [id number] 22:13:00 Test Item Value Reference Range Interpretation Comments UA Spec Grav (test code = UA Spec Grav) 1.014 [facility] [id number] 22:13:00 Test Item Value Reference Range Interpretation Comments UA Urobilinogen (test code = UA <=1.0 mg/dL 0.1-1.0 Urobilinogen) [facility] [id number] 22:13:00 Test Item Value Reference Range Interpretation Comments UA Bili (test code = Negative *NA*(03/10/17 UA Bili) 5:13 PM) [facility] [id number] 22:13:00 Test Item Value Reference Range Interpretation Comments UA Ketones (test code = UA Negative mg/dL Ketones) [facility] [id number] 22:13:00 Test Item Value Reference Range Interpretation Comments UA Glucose (test code = UA Glucose) 50 mg/dL [facility] [id number] 22:13:00 Test Item Value Reference Range Interpretation Comments UA Blood (test code = Small *ABN*(03/10/17 UA Blood) 5:13 PM) [facility] [id number] 22:13:00 Test Item Value Reference Range Interpretation Comments UA Color (test code = Light Yellow UA Color) *NA*(03/10/17 5:13 PM) [facility] [id number] 22:13:00 Test Item Value Reference Range Interpretation Comments UA Mucus (test code = UA Mucus) Few /LPF [facility] [id number] 22:13:00 Test Item Value Reference Range Interpretation Comments UA RBC (test code = 27 See_Comment [Automa cruz message] The UA RBC) system which ge nerated this result transmit cruz reference range : <=2. The reference range was not used to interpr et this result as gee l/abnormal. [facility] [id number] 22:13:00 Test Item Value Reference Range Interpretation Comments UA Hyal Cast (test 1 See_Comment [Automat ed message] The code = UA Hyal Cast) system which generated this result transmit cruz reference range : <=2. The reference range was not used to interpr et this result as gee l/abnormal. [facility] [id number] 22:13:00 Test Item Value Reference Range Interpretation Comments UA Turbidity (test code = Clear (03/10/17 5:13 UA Turbidity) PM) [facility] [id number] 22:13:00 Test Item Value Reference Range Interpretation Comments UA Protein (test code = UA >=300 mg/dL Protein) [facility] [id number] 22:13:00 Test Item Value Reference Range Interpretation Comments UA pH (test code = UA pH) 6.0 5.0-8.0 [facility] [id number] 22:13:00 Test Item Value Reference Range Interpretation Comments UA Nitrite (test code Negative (03/10/17 5:13 = UA Nitrite) PM) [facility] [id number] 22:13:00 Test Item Value Reference Range Interpretation Comments UA Leuk Est (test code Trace *ABN*(03/10/17 = UA Leuk Est) 5:13 PM) [facility] [id number] 22:13:00 Test Item Value Reference Range Interpretation Comments UA Sq Epi (test code = UA Sq Occasional /LPF Epi) [facility] [id number] 22:13:00 Test Item Value Reference Range Interpretation Comments UA WBC (test code = 22 See_Comment [Automa cruz message] The UA WBC) system which ge nerated this result transmit cruz reference range : <=5. The reference range was not used to interpr et this result as gee l/abnormal. [facility]Smart[facility] [id number] 09:12:00 Test Item Value Reference Range Interpretation Comments BUN (test code = BUN) 21 7- [facility] [id number] 09:12:00 Test Item Value Reference Range Interpretation Comments Creatinine Lvl (test code = Creatinine 2.3 0.5-1.4 Lvl) [facility]2014-02-28 09:12:00 Test Item Value Reference Range Interpretation Comments Glucose Lvl (test code = Glucose Lvl) 128 70-99 [facility]2014-02-28 09:12:00 Test Item Value Reference Range Interpretation Comments Chloride Lvl (test code = Chloride Lvl) 111 95-109 [facility]2014-02-28 09:12:00 Test Item Value Reference Range Interpretation Comments CO2 (test code = CO2) 25 24-32 [facility]2014-02-28 09:12:00 Test Item Value Reference Range Interpretation Comments AGAP (test code = AGAP) 10.8 10.0-20.0 [facility]2014-02-28 09:12:00 Test Item Value Reference Range Interpretation Comments Potassium Lvl (test code = Potassium 3.8 3.5-5.1 Lvl) [facility]2014-02-28 09:12:00 Test Item Value Reference Range Interpretation Comments Sodium Lvl (test code = Sodium Lvl) 143 135-145 [facility]2014-02-28 09:12:00 Test Item Value Reference Range Interpretation Comments Calcium Lvl (test code = Calcium Lvl) 8.4 8.5-10.5 [facility]2014-02-28 09:12:00 Test Item Value Reference Range Interpretation Comments eGFR (test code = eGFR) 32 [facility]2014-02-28 09:12:00 Test Item Value Reference Range Interpretation Comments Magnesium Lvl (test code = Magnesium 2.1 1.8-2.4 Lvl) [facility] CenterJhciriaVADFDUFTYY4644-53-88 09:12:00 Test Item Value Reference Range Interpretation Comments RBC X 10x6 (test code = RBC X 10x6) 4.66 4.70-6.10 [facility] CenterIznoqowDQAVTXNNLF9179-63-96 09:12:00 Test Item Value Reference Range Interpretation Comments Hct (test code = Hct) 42.3 42.0-54.0 [facility] CenterTrlfawjMILAWQAYTK3042-99-27 09:12:00 Test Item Value Reference Range Interpretation Comments MCH (test code = MCH) 30.0 pg 27.0-31.0 [facility] CenterCktxijbBMWOIVCVGS0194-33-62 09:12:00 Test Item Value Reference Range Interpretation Comments MCV (test code = MCV) 90.8 80.0-94.0 [facility] CenterSzzwdtrIVJSPEXFRN7240-25-93 09:12:00 Test Item Value Reference Range Interpretation Comments Hgb (test code = Hgb) 14.0 14.0-18.0 [facility] CenterRonckdnAKEOSTHAHT4730-26-43 09:12:00 Test Item Value Reference Range Interpretation Comments RDW (test code = RDW) 15.2 11.5-14.5 [facility] CenterUcqfzvrEAXJAEJJXP3025-19-91 09:12:00 Test Item Value Reference Range Interpretation Comments MCHC (test code = MCHC) 33.0 32.0-36.0 [facility] CenterTenhdcuPPJRZKIOZH3731-76-76 09:12:00 Test Item Value Reference Range Interpretation Comments MPV (test code = MPV) 9.5 7.4-10.4 [facility] CenterRtgpikfAGSTOPWZFG1289-44-42 09:12:00 Test Item Value Reference Range Interpretation Comments Platelet (test code = Platelet) 231 133-450 [facility] CenterQtaycrgWGPQGLNQSM5602-64-98 09:12:00 Test Item Value Reference Range Interpretation Comments WBC X 10x3 (test code = WBC X 10x3) 11.8 3.7-10.4 [facility]2014-02-28 09:12:00 Test Item Value Reference Range Interpretation Comments BUN (test code = BUN) 21 7-22 [facility]2014-02-28 09:12:00 Test Item Value Reference Range Interpretation Comments Creatinine Lvl (test code = Creatinine 2.3 0.5-1.4 Lvl) [facility]2014-02-28 09:12:00 Test Item Value Reference Range Interpretation Comments Glucose Lvl (test code = Glucose Lvl) 128 70-99 [facility]2014-02-28 09:12:00 Test Item Value Reference Range Interpretation Comments Chloride Lvl (test code = Chloride Lvl) 111 95-109 [facility]2014-02-28 09:12:00 Test Item Value Reference Range Interpretation Comments CO2 (test code = CO2) 25 24-32 [facility]2014-02-28 09:12:00 Test Item Value Reference Range Interpretation Comments AGAP (test code = AGAP) 10.8 10.0-20.0 [facility]2014-02-28 09:12:00 Test Item Value Reference Range Interpretation Comments Potassium Lvl (test code = Potassium 3.8 3.5-5.1 Lvl) [facility]2014-02-28 09:12:00 Test Item Value Reference Range Interpretation Comments Sodium Lvl (test code = Sodium Lvl) 143 135-145 [facility]2014-02-28 09:12:00 Test Item Value Reference Range Interpretation Comments Calcium Lvl (test code = Calcium Lvl) 8.4 8.5-10.5 [facility]2014-02-28 09:12:00 Test Item Value Reference Range Interpretation Comments eGFR (test code = eGFR) 32 [facility]2014-02-28 09:12:00 Test Item Value Reference Range Interpretation Comments Magnesium Lvl (test code = Magnesium 2.1 1.8-2.4 Lvl) [facility] CenterOnojlkhJSBGTOUOJT9194-33-00 09:12:00 Test Item Value Reference Range Interpretation Comments RBC X 10x6 (test code = RBC X 10x6) 4.66 4.70-6.10 [facility] CenterZmvcylpPEJHRAYGNZ4879-42-80 09:12:00 Test Item Value Reference Range Interpretation Comments Hct (test code = Hct) 42.3 42.0-54.0 [facility] CenterZpyluhwRIRRNRJOLN3624-67-59 09:12:00 Test Item Value Reference Range Interpretation Comments MCH (test code = MCH) 30.0 pg 27.0-31.0 [facility] CenterDcsorpfBGOBDYEXXB4273-53-35 09:12:00 Test Item Value Reference Range Interpretation Comments MCV (test code = MCV) 90.8 80.0-94.0 [facility] CenterAfptqseFKLWWMXGLW6557-04-61 09:12:00 Test Item Value Reference Range Interpretation Comments Hgb (test code = Hgb) 14.0 14.0-18.0 [facility] CenterDejflgnIQVYBGZTHB1003-73-17 09:12:00 Test Item Value Reference Range Interpretation Comments RDW (test code = RDW) 15.2 11.5-14.5 [facility] CenterEhypzprURJBELHHFN5673-14-19 09:12:00 Test Item Value Reference Range Interpretation Comments MCHC (test code = MCHC) 33.0 32.0-36.0 [facility] CenterSpmcwghELLYALIWGO6827-96-02 09:12:00 Test Item Value Reference Range Interpretation Comments MPV (test code = MPV) 9.5 7.4-10.4 [facility] CenterMpdgzzlALUFDUEJFB0841-85-76 09:12:00 Test Item Value Reference Range Interpretation Comments Platelet (test code = Platelet) 231 133-450 [facility] CenterZxjmkusJVTQXVUDDU4154-30-69 09:12:00 Test Item Value Reference Range Interpretation Comments WBC X 10x3 (test code = WBC X 10x3) 11.8 3.7-10.4 [facility]2014-02-28 09:12:00 Test Item Value Reference Range Interpretation Comments BUN (test code = BUN) 21 7-22 [facility]2014-02-28 09:12:00 Test Item Value Reference Range Interpretation Comments Creatinine Lvl (test code = Creatinine 2.3 0.5-1.4 Lvl) [facility]2014-02-28 09:12:00 Test Item Value Reference Range Interpretation Comments Glucose Lvl (test code = Glucose Lvl) 128 70-99 [facility]2014-02-28 09:12:00 Test Item Value Reference Range Interpretation Comments Chloride Lvl (test code = Chloride Lvl) 111 95-109 [facility]2014-02-28 09:12:00 Test Item Value Reference Range Interpretation Comments CO2 (test code = CO2) 25 24-32 [facility]2014-02-28 09:12:00 Test Item Value Reference Range Interpretation Comments AGAP (test code = AGAP) 10.8 10.0-20.0 [facility]2014-02-28 09:12:00 Test Item Value Reference Range Interpretation Comments Potassium Lvl (test code = Potassium 3.8 3.5-5.1 Lvl) [facility]2014-02-28 09:12:00 Test Item Value Reference Range Interpretation Comments Sodium Lvl (test code = Sodium Lvl) 143 135-145 [facility]2014-02-28 09:12:00 Test Item Value Reference Range Interpretation Comments Calcium Lvl (test code = Calcium Lvl) 8.4 8.5-10.5 [facility]2014-02-28 09:12:00 Test Item Value Reference Range Interpretation Comments eGFR (test code = eGFR) 32 [facility]2014-02-28 09:12:00 Test Item Value Reference Range Interpretation Comments Magnesium Lvl (test code = Magnesium 2.1 1.8-2.4 Lvl) [facility]CqgkbwcMWICMEDPTF0344-27-60 09:12:00 Test Item Value Reference Range Interpretation Comments RBC X 10x6 (test code = RBC X 10x6) 4.66 4.70-6.10 [facility] CenterUnsleutDQPKATYPUR3484-40-90 09:12:00 Test Item Value Reference Range Interpretation Comments Hct (test code = Hct) 42.3 42.0-54.0 [facility] CenterGzdurpuRTVCYJUUHK1035-77-21 09:12:00 Test Item Value Reference Range Interpretation Comments MCH (test code = MCH) 30.0 pg 27.0-31.0 [facility] CenterYwlnllpUHVSSIEKBQ7946-52-89 09:12:00 Test Item Value Reference Range Interpretation Comments MCV (test code = MCV) 90.8 80.0-94.0 [facility] CenterKiqtkidLPHXPRHCQW9171-79-04 09:12:00 Test Item Value Reference Range Interpretation Comments Hgb (test code = Hgb) 14.0 14.0-18.0 [facility] CenterUjflbzqVPREPWGHZV9213-31-12 09:12:00 Test Item Value Reference Range Interpretation Comments RDW (test code = RDW) 15.2 11.5-14.5 [facility] CenterWcpzlmcNENYZJDZGZ3660-11-40 09:12:00 Test Item Value Reference Range Interpretation Comments MCHC (test code = MCHC) 33.0 32.0-36.0 [facility] CenterHspxyanAGUHATEVRD3042-14-81 09:12:00 Test Item Value Reference Range Interpretation Comments MPV (test code = MPV) 9.5 7.4-10.4 [facility] CenterChhrgkxWLJCTVHEOV3580-89-66 09:12:00 Test Item Value Reference Range Interpretation Comments Platelet (test code = Platelet) 231 133-450 [facility] CenterNeznuskLMCKOGUHKK2982-53-65 09:12:00 Test Item Value Reference Range Interpretation Comments WBC X 10x3 (test code = WBC X 10x3) 11.8 3.7-10.4 [facility]2014-02-28 09:12:00 Test Item Value Reference Range Interpretation Comments BUN (test code = BUN) 21 7-22 [facility]2014-02-28 09:12:00 Test Item Value Reference Range Interpretation Comments Creatinine Lvl (test code = Creatinine 2.3 0.5-1.4 Lvl) [facility]2014-02-28 09:12:00 Test Item Value Reference Range Interpretation Comments Glucose Lvl (test code = Glucose Lvl) 128 70-99 [facility]2014-02-28 09:12:00 Test Item Value Reference Range Interpretation Comments Chloride Lvl (test code = Chloride Lvl) 111 95-109 [facility]2014-02-28 09:12:00 Test Item Value Reference Range Interpretation Comments CO2 (test code = CO2) 25 24-32 [facility]2014-02-28 09:12:00 Test Item Value Reference Range Interpretation Comments AGAP (test code = AGAP) 10.8 10.0-20.0 [facility]2014-02-28 09:12:00 Test Item Value Reference Range Interpretation Comments Potassium Lvl (test code = Potassium 3.8 3.5-5.1 Lvl) [facility]2014-02-28 09:12:00 Test Item Value Reference Range Interpretation Comments Sodium Lvl (test code = Sodium Lvl) 143 135-145 [facility]2014-02-28 09:12:00 Test Item Value Reference Range Interpretation Comments Calcium Lvl (test code = Calcium Lvl) 8.4 8.5-10.5 [facility]2014-02-28 09:12:00 Test Item Value Reference Range Interpretation Comments eGFR (test code = eGFR) 32 [facility]2014-02-28 09:12:00 Test Item Value Reference Range Interpretation Comments Magnesium Lvl (test code = Magnesium 2.1 1.8-2.4 Lvl) [facility] CenterCglifuvELUYTNJKRY3327-95-96 09:12:00 Test Item Value Reference Range Interpretation Comments RBC X 10x6 (test code = RBC X 10x6) 4.66 4.70-6.10 [facility] CenterUehnvijRUFCKIGAXN1396-25-21 09:12:00 Test Item Value Reference Range Interpretation Comments Hct (test code = Hct) 42.3 42.0-54.0 [facility] CenterVesznigDXEUPFSRZM7146-90-84 09:12:00 Test Item Value Reference Range Interpretation Comments MCH (test code = MCH) 30.0 pg 27.0-31.0 [facility] CenterHzyrncnHLBYPNOYNZ8658-59-95 09:12:00 Test Item Value Reference Range Interpretation Comments MCV (test code = MCV) 90.8 80.0-94.0 [facility] CenterDxqwicuTZENCARLPK3670-19-28 09:12:00 Test Item Value Reference Range Interpretation Comments Hgb (test code = Hgb) 14.0 14.0-18.0 [facility] CenterPaqdejvAVOIHAYEFN6930-39-19 09:12:00 Test Item Value Reference Range Interpretation Comments RDW (test code = RDW) 15.2 11.5-14.5 [facility] CenterGmhlnvbWRZVOLKELK3323-08-75 09:12:00 Test Item Value Reference Range Interpretation Comments MCHC (test code = MCHC) 33.0 32.0-36.0 [facility] CenterLzfmnggCTRFFPAQBK3475-85-01 09:12:00 Test Item Value Reference Range Interpretation Comments MPV (test code = MPV) 9.5 7.4-10.4 [facility] CenterGjrjaduIIAJFJNHZM4043-39-22 09:12:00 Test Item Value Reference Range Interpretation Comments Platelet (test code = Platelet) 231 133-450 [facility] CenterQpbpxeaOWSBUFPASO3947-70-96 09:12:00 Test Item Value Reference Range Interpretation Comments WBC X 10x3 (test code = WBC X 10x3) 11.8 3.7-10.4 [facility]2014-02-27 08:27:00 Test Item Value Reference Range Interpretation Comments Magnesium Lvl (test code = Magnesium 1.8 1.8-2.4 Lvl) [facility]2014-02-27 08:27:00 Test Item Value Reference Range Interpretation Comments eGFR (test code = eGFR) 38 [facility]2014-02-27 08:27:00 Test Item Value Reference Range Interpretation Comments AGAP (test code = AGAP) 11.6 10.0-20.0 [facility]2014-02-27 08:27:00 Test Item Value Reference Range Interpretation Comments Calcium Lvl (test code = Calcium Lvl) 8.5 8.5-10.5 [facility]2014-02-27 08:27:00 Test Item Value Reference Range Interpretation Comments Potassium Lvl (test code = Potassium 3.6 3.5-5.1 Lvl) [facility]2014-02-27 08:27:00 Test Item Value Reference Range Interpretation Comments Sodium Lvl (test code = Sodium Lvl) 142 135-145 [place] 604384-02-27 08:27:00 Test Item Value Reference Range Interpretation Comments Chloride Lvl (test code = Chloride Lvl) 111 95-109 [facility]2014-02-27 08:27:00 Test Item Value Reference Range Interpretation Comments CO2 (test code = CO2) 23 24-32 [place] 604384-02-27 08:27:00 Test Item Value Reference Range Interpretation Comments Creatinine Lvl (test code = Creatinine 2.0 0.5-1.4 Lvl) [facility]2014-02-27 08:27:00 Test Item Value Reference Range Interpretation Comments BUN (test code = BUN) 17 7-22 [facility]2014-02-27 08:27:00 Test Item Value Reference Range Interpretation Comments Glucose Lvl (test code = Glucose Lvl) 125 70-99 [facility] CenterYykxwdqEVRSFMLKYF7966-67-12 08:27:00 Test Item Value Reference Range Interpretation Comments Hgb (test code = Hgb) 13.9 14.0-18.0 [place] 441644-02-27 08:27:00 Test Item Value Reference Range Interpretation Comments WBC X 10x3 (test code = WBC X 10x3) 12.2 3.7-10.4 [facility] CenterTmbascxWJVCLTTDQG6646-60-37 08:27:00 Test Item Value Reference Range Interpretation Comments Hct (test code = Hct) 41.8 42.0-54.0 [place] 441644-02-27 08:27:00 Test Item Value Reference Range Interpretation Comments MCV (test code = MCV) 90.7 80.0-94.0 [facility] CenterJasnowjZTGNOAOPRM6553-37-59 08:27:00 Test Item Value Reference Range Interpretation Comments MCH (test code = MCH) 30.2 pg 27.0-31.0 [place] 441644-02-27 08:27:00 Test Item Value Reference Range Interpretation Comments MCHC (test code = MCHC) 33.3 32.0-36.0 [facility] CenterQzztzbtIAXZGFPJOE6804-32-06 08:27:00 Test Item Value Reference Range Interpretation Comments RBC X 10x6 (test code = RBC X 10x6) 4.61 4.70-6.10 [facility] CenterBofhjypTFFEXLBIHZ4447-37-02 08:27:00 Test Item Value Reference Range Interpretation Comments Platelet (test code = Platelet) 209 133-450 [facility] CenterLcufkjlYRPGODYBBV6545-77-45 08:27:00 Test Item Value Reference Range Interpretation Comments RDW (test code = RDW) 15.4 11.5-14.5 [facility] CenterZnpiftvUDIMHCQGAZ5573-25-70 08:27:00 Test Item Value Reference Range Interpretation Comments MPV (test code = MPV) 9.7 7.4-10.4 [facility]2014-02-27 08:27:00 Test Item Value Reference Range Interpretation Comments Magnesium Lvl (test code = Magnesium 1.8 1.8-2.4 Lvl) [facility]2014-02-27 08:27:00 Test Item Value Reference Range Interpretation Comments eGFR (test code = eGFR) 38 [facility]2014-02-27 08:27:00 Test Item Value Reference Range Interpretation Comments AGAP (test code = AGAP) 11.6 10.0-20.0 [facility]2014-02-27 08:27:00 Test Item Value Reference Range Interpretation Comments Calcium Lvl (test code = Calcium Lvl) 8.5 8.5-10.5 [facility]2014-02-27 08:27:00 Test Item Value Reference Range Interpretation Comments Potassium Lvl (test code = Potassium 3.6 3.5-5.1 Lvl) [facility]2014-02-27 08:27:00 Test Item Value Reference Range Interpretation Comments Sodium Lvl (test code = Sodium Lvl) 142 135-145 [facility]2014-02-27 08:27:00 Test Item Value Reference Range Interpretation Comments Chloride Lvl (test code = Chloride Lvl) 111 95-109 [facility]2014-02-27 08:27:00 Test Item Value Reference Range Interpretation Comments CO2 (test code = CO2) 23 24-32 [facility]2014-02-27 08:27:00 Test Item Value Reference Range Interpretation Comments Creatinine Lvl (test code = Creatinine 2.0 0.5-1.4 Lvl) [facility]2014-02-27 08:27:00 Test Item Value Reference Range Interpretation Comments BUN (test code = BUN) 17 7-22 [facility]2014-02-27 08:27:00 Test Item Value Reference Range Interpretation Comments Glucose Lvl (test code = Glucose Lvl) 125 70-99 [facility] CenterIztfymyYGWIBRRARX3547-88-12 08:27:00 Test Item Value Reference Range Interpretation Comments Hgb (test code = Hgb) 13.9 14.0-18.0 [facility] CenterAjgxvplUVVCIXIRYQ0893-25-81 08:27:00 Test Item Value Reference Range Interpretation Comments WBC X 10x3 (test code = WBC X 10x3) 12.2 3.7-10.4 [facility] CenterRccaoeoDGGUBEKFTH9354-89-43 08:27:00 Test Item Value Reference Range Interpretation Comments Hct (test code = Hct) 41.8 42.0-54.0 [facility] CenterNzukygoWCLCMCVHLU2605-99-40 08:27:00 Test Item Value Reference Range Interpretation Comments MCV (test code = MCV) 90.7 80.0-94.0 [facility] CenterJkymxoxKKJAOFTEJW9537-10-13 08:27:00 Test Item Value Reference Range Interpretation Comments MCH (test code = MCH) 30.2 pg 27.0-31.0 [facility] CenterOwxlkfmQNQKWAZXSG6594-39-00 08:27:00 Test Item Value Reference Range Interpretation Comments MCHC (test code = MCHC) 33.3 32.0-36.0 [facility] CenterAhotaelLOJGWBRXAL0430-03-01 08:27:00 Test Item Value Reference Range Interpretation Comments RBC X 10x6 (test code = RBC X 10x6) 4.61 4.70-6.10 [facility] CenterHwhngenQWRXSATZUL1022-00-95 08:27:00 Test Item Value Reference Range Interpretation Comments Platelet (test code = Platelet) 209 133-450 [facility] CenterWvntffvZFYYTLKQVJ5433-21-15 08:27:00 Test Item Value Reference Range Interpretation Comments RDW (test code = RDW) 15.4 11.5-14.5 [facility] CenterZvqvrgbQLRLUKZKVI1732-00-71 08:27:00 Test Item Value Reference Range Interpretation Comments MPV (test code = MPV) 9.7 7.4-10.4 [facility]2014-02-27 08:27:00 Test Item Value Reference Range Interpretation Comments Magnesium Lvl (test code = Magnesium 1.8 1.8-2.4 Lvl) [facility]2014-02-27 08:27:00 Test Item Value Reference Range Interpretation Comments eGFR (test code = eGFR) 38 [facility]2014-02-27 08:27:00 Test Item Value Reference Range Interpretation Comments AGAP (test code = AGAP) 11.6 10.0-20.0 [facility]2014-02-27 08:27:00 Test Item Value Reference Range Interpretation Comments Calcium Lvl (test code = Calcium Lvl) 8.5 8.5-10.5 [facility]2014-02-27 08:27:00 Test Item Value Reference Range Interpretation Comments Potassium Lvl (test code = Potassium 3.6 3.5-5.1 Lvl) [facility]2014-02-27 08:27:00 Test Item Value Reference Range Interpretation Comments Sodium Lvl (test code = Sodium Lvl) 142 135-145 [facility]2014-02-27 08:27:00 Test Item Value Reference Range Interpretation Comments Chloride Lvl (test code = Chloride Lvl) 111 95-109 [facility]2014-02-27 08:27:00 Test Item Value Reference Range Interpretation Comments CO2 (test code = CO2) 23 24-32 [facility]2014-02-27 08:27:00 Test Item Value Reference Range Interpretation Comments Creatinine Lvl (test code = Creatinine 2.0 0.5-1.4 Lvl) [facility]2014-02-27 08:27:00 Test Item Value Reference Range Interpretation Comments BUN (test code = BUN) 17 7-22 [facility]2014-02-27 08:27:00 Test Item Value Reference Range Interpretation Comments Glucose Lvl (test code = Glucose Lvl) 125 70-99 [facility] CenterEtmecdfYHBBENNYSB2655-83-89 08:27:00 Test Item Value Reference Range Interpretation Comments Hgb (test code = Hgb) 13.9 14.0-18.0 [facility] CenterZvridilOILSQQZNKJ0289-34-51 08:27:00 Test Item Value Reference Range Interpretation Comments WBC X 10x3 (test code = WBC X 10x3) 12.2 3.7-10.4 [facility] CenterUgmsfzwNVECYURAEH2784-82-67 08:27:00 Test Item Value Reference Range Interpretation Comments Hct (test code = Hct) 41.8 42.0-54.0 [facility] CenterCukqsnvLPLYOEUKHL0736-91-09 08:27:00 Test Item Value Reference Range Interpretation Comments MCV (test code = MCV) 90.7 80.0-94.0 [facility] CenterVszlozsQXOUIYTUIB1622-23-08 08:27:00 Test Item Value Reference Range Interpretation Comments MCH (test code = MCH) 30.2 pg 27.0-31.0 [facility] CenterDpwwieqEFJIYHFLIR4477-48-36 08:27:00 Test Item Value Reference Range Interpretation Comments MCHC (test code = MCHC) 33.3 32.0-36.0 [facility] CenterHftklhtMCANULGFTA0778-83-26 08:27:00 Test Item Value Reference Range Interpretation Comments RBC X 10x6 (test code = RBC X 10x6) 4.61 4.70-6.10 [facility] CenterYkvtvhyBETSDUBHJT3718-13-68 08:27:00 Test Item Value Reference Range Interpretation Comments Platelet (test code = Platelet) 209 133-450 [facility] CenterDizgphpBCBFZGKWCH8401-76-00 08:27:00 Test Item Value Reference Range Interpretation Comments RDW (test code = RDW) 15.4 11.5-14.5 [facility] CenterSjqoifsWHWDUKZEYM8543-24-26 08:27:00 Test Item Value Reference Range Interpretation Comments MPV (test code = MPV) 9.7 7.4-10.4 [facility]2014-02-27 08:27:00 Test Item Value Reference Range Interpretation Comments Magnesium Lvl (test code = Magnesium 1.8 1.8-2.4 Lvl) [facility]2014-02-27 08:27:00 Test Item Value Reference Range Interpretation Comments eGFR (test code = eGFR) 38 [facility]2014-02-27 08:27:00 Test Item Value Reference Range Interpretation Comments AGAP (test code = AGAP) 11.6 10.0-20.0 [facility]2014-02-27 08:27:00 Test Item Value Reference Range Interpretation Comments Calcium Lvl (test code = Calcium Lvl) 8.5 8.5-10.5 [facility]2014-02-27 08:27:00 Test Item Value Reference Range Interpretation Comments Potassium Lvl (test code = Potassium 3.6 3.5-5.1 Lvl) [facility]2014-02-27 08:27:00 Test Item Value Reference Range Interpretation Comments Sodium Lvl (test code = Sodium Lvl) 142 135-145 [facility]2014-02-27 08:27:00 Test Item Value Reference Range Interpretation Comments Chloride Lvl (test code = Chloride Lvl) 111 95-109 [place] 604384-02-27 08:27:00 Test Item Value Reference Range Interpretation Comments CO2 (test code = CO2) 23 24-32 [place] 604384-02-27 08:27:00 Test Item Value Reference Range Interpretation Comments Creatinine Lvl (test code = Creatinine 2.0 0.5-1.4 Lvl) [facility]2014-02-27 08:27:00 Test Item Value Reference Range Interpretation Comments BUN (test code = BUN) 17 7-22 [facility]2014-02-27 08:27:00 Test Item Value Reference Range Interpretation Comments Glucose Lvl (test code = Glucose Lvl) 125 70-99 [facility] CenterUbqhvcoWQMWPQSCCT7308-57-07 08:27:00 Test Item Value Reference Range Interpretation Comments Hgb (test code = Hgb) 13.9 14.0-18.0 [facility] CenterAdhaczyVVNTIBRUOL0220-78-92 08:27:00 Test Item Value Reference Range Interpretation Comments WBC X 10x3 (test code = WBC X 10x3) 12.2 3.7-10.4 [place] 441644-02-27 08:27:00 Test Item Value Reference Range Interpretation Comments Hct (test code = Hct) 41.8 42.0-54.0 [facility] CenterRftrsgiTJUSMYLEUY3256-15-62 08:27:00 Test Item Value Reference Range Interpretation Comments MCV (test code = MCV) 90.7 80.0-94.0 [place] 441644-02-27 08:27:00 Test Item Value Reference Range Interpretation Comments MCH (test code = MCH) 30.2 pg 27.0-31.0 [facility] CenterCfjolucWKWMQDNCSP3332-07-71 08:27:00 Test Item Value Reference Range Interpretation Comments MCHC (test code = MCHC) 33.3 32.0-36.0 [facility] CenterZufiupjBWNSKFTMQZ8547-75-84 08:27:00 Test Item Value Reference Range Interpretation Comments RBC X 10x6 (test code = RBC X 10x6) 4.61 4.70-6.10 [facility] CenterHlblbajIZOJMTCPDZ1968-16-34 08:27:00 Test Item Value Reference Range Interpretation Comments Platelet (test code = Platelet) 209 133-450 [facility] CenterWbvalkjUJLHTEXEQI9884-76-50 08:27:00 Test Item Value Reference Range Interpretation Comments RDW (test code = RDW) 15.4 11.5-14.5 [facility] CenterNtdfvuuYCQOGJWRYW1004-59-63 08:27:00 Test Item Value Reference Range Interpretation Comments MPV (test code = MPV) 9.7 7.4-10.4 [facility]2014-02-26 18:49:00 Test Item Value Reference Range Interpretation Comments Calcium Lvl (test code = Calcium Lvl) 8.2 8.5-10.5 [facility]2014-02-26 18:49:00 Test Item Value Reference Range Interpretation Comments AGAP (test code = AGAP) 11.9 10.0-20.0 [facility]2014-02-26 18:49:00 Test Item Value Reference Range Interpretation Comments CO2 (test code = CO2) 23 24-32 [facility]2014-02-26 18:49:00 Test Item Value Reference Range Interpretation Comments eGFR (test code = eGFR) 41 [facility]2014-02-26 18:49:00 Test Item Value Reference Range Interpretation Comments Glucose Lvl (test code = Glucose Lvl) 129 70-99 [facility]2014-02-26 18:49:00 Test Item Value Reference Range Interpretation Comments BUN (test code = BUN) 17 7-22 [facility]2014-02-26 18:49:00 Test Item Value Reference Range Interpretation Comments Creatinine Lvl (test code = Creatinine 1.9 0.5-1.4 Lvl) [facility]2014-02-26 18:49:00 Test Item Value Reference Range Interpretation Comments Potassium Lvl (test code = Potassium 3.9 3.5-5.1 Lvl) [facility]2014-02-26 18:49:00 Test Item Value Reference Range Interpretation Comments Sodium Lvl (test code = Sodium Lvl) 142 135-145 [facility]2014-02-26 18:49:00 Test Item Value Reference Range Interpretation Comments Chloride Lvl (test code = Chloride Lvl) 111 95-[address] [facility] HospitalVecqoseNOAWCT8675-82-72 18:49:00 Test Item Value Reference Range Interpretation Comments VLDL (test code = VLDL) 25 [facility]EqeojifOIANQY7424-72-26 18:49:00 Test Item Value Reference Range Interpretation Comments LDL (Calculated) (test code = LDL 98 (Calculated)) [facility] CenterFddbdpoWDIURY2935-81-20 18:49:00 Test Item Value Reference Range Interpretation Comments HDL (test code = HDL) 54 [facility] CenterBxwglybFNPBAW8388-83-85 18:49:00 Test Item Value Reference Range Interpretation Comments Chol (test code = Chol) 177 [facility] CenterCedbkzyFHZEXO4725-02-03 18:49:00 Test Item Value Reference Range Interpretation Comments Trig (test code = Trig) 126 [facility] CenterFgfcpebPLDJWN8583-15-99 18:49:00 Test Item Value Reference Range Interpretation Comments CHD Risk (test code = CHD Risk) 3.28 4.00-7.30 [facility]2014-02-26 18:49:00 Test Item Value Reference Range Interpretation Comments Calcium Lvl (test code = Calcium Lvl) 8.2 8.5-10.5 [facility]2014-02-26 18:49:00 Test Item Value Reference Range Interpretation Comments AGAP (test code = AGAP) 11.9 10.0-20.0 [facility]2014-02-26 18:49:00 Test Item Value Reference Range Interpretation Comments CO2 (test code = CO2) 23 24-32 [facility]2014-02-26 18:49:00 Test Item Value Reference Range Interpretation Comments eGFR (test code = eGFR) 41 [facility]2014-02-26 18:49:00 Test Item Value Reference Range Interpretation Comments Glucose Lvl (test code = Glucose Lvl) 129 70-99 [place] 604384-02-26 18:49:00 Test Item Value Reference Range Interpretation Comments BUN (test code = BUN) 17 7-22 [facility]2014-02-26 18:49:00 Test Item Value Reference Range Interpretation Comments Creatinine Lvl (test code = Creatinine 1.9 0.5-1.4 Lvl) [facility]2014-02-26 18:49:00 Test Item Value Reference Range Interpretation Comments Potassium Lvl (test code = Potassium 3.9 3.5-5.1 Lvl) [facility]2014-02-26 18:49:00 Test Item Value Reference Range Interpretation Comments Sodium Lvl (test code = Sodium Lvl) 142 135-145 [facility]2014-02-26 18:49:00 Test Item Value Reference Range Interpretation Comments Chloride Lvl (test code = Chloride Lvl) 111 95-109 [facility] CenterCtclwsdEUDTTJ7860-27-28 18:49:00 Test Item Value Reference Range Interpretation Comments VLDL (test code = VLDL) [address] [facility] [address] [facility] HospitalFtmtzjmTFZAET4240-21-12 18:49:00 Test Item Value Reference Range Interpretation Comments LDL (Calculated) (test code = LDL 98 (Calculated)) [facility] CenterKjwogqtGOXMXK7002-51-40 18:49:00 Test Item Value Reference Range Interpretation Comments HDL (test code = HDL) [address] [facility] HospitalZxxoizhRLZODE9840-84-75 18:49:00 Test Item Value Reference Range Interpretation Comments Chol (test code = Chol) 177 [facility] CenterOpzdmwvUUQHQZ3283-31-80 18:49:00 Test Item Value Reference Range Interpretation Comments Trig (test code = Trig) 126 [facility] CenterXaveziwQRQSHE0647-64-61 18:49:00 Test Item Value Reference Range Interpretation Comments CHD Risk (test code = CHD Risk) 3.28 4.00-7.30 [facility]2014-02-26 18:49:00 Test Item Value Reference Range Interpretation Comments Calcium Lvl (test code = Calcium Lvl) 8.2 8.5-10.5 [facility]2014-02-26 18:49:00 Test Item Value Reference Range Interpretation Comments AGAP (test code = AGAP) 11.9 10.0-20.[address] [facility] HospitaliFit SAQKG5417-65-96 18:49:00 Test Item Value Reference Range Interpretation Comments CO2 (test code = CO2) 23 24-32 [facility]2014-02-26 18:49:00 Test Item Value Reference Range Interpretation Comments eGFR (test code = eGFR) 41 [facility]2014-02-26 18:49:00 Test Item Value Reference Range Interpretation Comments Glucose Lvl (test code = Glucose Lvl) 129 70-99 [facility]2014-02-26 18:49:00 Test Item Value Reference Range Interpretation Comments BUN (test code = BUN) 17 7-22 [facility]2014-02-26 18:49:00 Test Item Value Reference Range Interpretation Comments Creatinine Lvl (test code = Creatinine 1.9 0.5-1.4 Lvl) [facility]2014-02-26 18:49:00 Test Item Value Reference Range Interpretation Comments Potassium Lvl (test code = Potassium 3.9 3.5-5.1 Lvl) [facility]2014-02-26 18:49:00 Test Item Value Reference Range Interpretation Comments Sodium Lvl (test code = Sodium Lvl) 142 135-145 [facility]2014-02-26 18:49:00 Test Item Value Reference Range Interpretation Comments Chloride Lvl (test code = Chloride Lvl) 111 95-[address] [id number] 18:49:00 Test Item Value Reference Range Interpretation Comments VLDL (test code = VLDL) 25 [id number] 18:49:00 Test Item Value Reference Range Interpretation Comments LDL (Calculated) (test code = LDL 98 (Calculated)) [id number] 18:49:00 Test Item Value Reference Range Interpretation Comments HDL (test code = HDL) 54 [facility] CenterWumlnnwCGFYEN0907-66-98 18:49:00 Test Item Value Reference Range Interpretation Comments Chol (test code = Chol) 177 [facility] CenterEemjkonOEWIYE0518-80-68 18:49:00 Test Item Value Reference Range Interpretation Comments Trig (test code = Trig) 126 [facility] CenterZpyjjkaPBRXEQ8963-73-15 18:49:00 Test Item Value Reference Range Interpretation Comments CHD Risk (test code = CHD Risk) 3.28 4.00-7.30 [facility]2014-02-26 18:49:00 Test Item Value Reference Range Interpretation Comments Calcium Lvl (test code = Calcium Lvl) 8.2 8.5-10.5 [facility]2014-02-26 18:49:00 Test Item Value Reference Range Interpretation Comments AGAP (test code = AGAP) 11.9 10.0-20.0 [facility]2014-02-26 18:49:00 Test Item Value Reference Range Interpretation Comments CO2 (test code = CO2) 23 24-32 [facility]2014-02-26 18:49:00 Test Item Value Reference Range Interpretation Comments eGFR (test code = eGFR) 41 [facility]2014-02-26 18:49:00 Test Item Value Reference Range Interpretation Comments Glucose Lvl (test code = Glucose Lvl) 129 70-99 [facility]2014-02-26 18:49:00 Test Item Value Reference Range Interpretation Comments BUN (test code = BUN) 17 7-22 [facility]2014-02-26 18:49:00 Test Item Value Reference Range Interpretation Comments Creatinine Lvl (test code = Creatinine 1.9 0.5-1.4 Lvl) [facility]2014-02-26 18:49:00 Test Item Value Reference Range Interpretation Comments Potassium Lvl (test code = Potassium 3.9 3.5-5.1 Lvl) [facility]2014-02-26 18:49:00 Test Item Value Reference Range Interpretation Comments Sodium Lvl (test code = Sodium Lvl) 142 135-145 [facility]2014-02-26 18:49:00 Test Item Value Reference Range Interpretation Comments Chloride Lvl (test code = Chloride Lvl) 111 95-[address] [facility] [id number] 18:49:00 Test Item Value Reference Range Interpretation Comments VLDL (test code = VLDL) 25 [facility] CenterHmswchuRVQKBY8053-78-75 18:49:00 Test Item Value Reference Range Interpretation Comments LDL (Calculated) (test code = LDL 98 (Calculated)) [facility] HospitalSamjjdoJQBRFG0273-40-24 18:49:00 Test Item Value Reference Range Interpretation Comments HDL (test code = HDL) [address] [facility] HospitalSnbnxajTRMBGR4475-29-24 18:49:00 Test Item Value Reference Range Interpretation Comments Chol (test code = Chol) 177 [facility]NmvlvhiTDZFXD5719-91-15 18:49:00 Test Item Value Reference Range Interpretation Comments Trig (test code = Trig) 126 [facility] CenterUibhftzDSRHPD9799-77-50 18:49:00 Test Item Value Reference Range Interpretation Comments CHD Risk (test code = CHD Risk) 3.28 4.00-7.30 [facility] [id number] 10:05:14 Test Item Value Reference Range Interpretation Comments Micro? (test code = Performed *NA*(11/24/2013 Micro?) 04:05:14 [facility] [id number] 10:05:14 Test Item Value Reference Range Interpretation Comments UA Mucus (test code = UA Mucus) Few /LPF [facility] [id number] 10:05:14 Test Item Value Reference Range Interpretation Comments UA RBC (test code = 1 See_Comment [Automa cruz message] The UA RBC) system which ge nerated this result transmit cruz reference range : <=2. The reference range was not used to interpr et this result as gee l/abnormal. [facility] [id number] 10:05:14 Test Item Value Reference Range Interpretation Comments UA Urobilinogen (test code = UA <=1.0 mg/dL 0.1-1.0 Urobilinogen) [facility] [id number] 10:05:14 Test Item Value Reference Range Interpretation Comments UA Turbidity (test code = Clear (11/24/2013 UA Turbidity) 04:05:14 [facility]) [facility] [id number] 10:05:14 Test Item Value Reference Range Interpretation Comments UA Protein (test code = UA >=300 mg/dL Protein) [facility] [id number] 10:05:14 Test Item Value Reference Range Interpretation Comments UA pH (test code = UA pH) 6.5 5.0-8.0 [facility] [id number] 10:05:14 Test Item Value Reference Range Interpretation Comments UA Spec Grav (test code = UA Spec Grav) 1.010 [facility] [id number] 10:05:14 Test Item Value Reference Range Interpretation Comments UA Color (test code = Light Yellow UA Color) *NA*(11/24/2013 04:05:14 [facility] [id number] 10:05:14 Test Item Value Reference Range Interpretation Comments UA WBC (test code = 2 See_Comment [Automa cruz message] The UA WBC) system which ge nerated this result transmit cruz reference range : <=5. The reference range was not used to interpr et this result as gee l/abnormal. [facility] [id number] 10:05:14 Test Item Value Reference Range Interpretation Comments UA Sq Epi (test code = UA Sq Occasional /LPF Epi) [facility] [id number] 10:05:14 Test Item Value Reference Range Interpretation Comments UA Leuk Est (test Negative (11/24/2013 code = UA Leuk Est) 04:05:14 [facility]) [facility] [id number] 10:05:14 Test Item Value Reference Range Interpretation Comments UA Nitrite (test code Negative (11/24/2013 = UA Nitrite) 04:05:14 [facility] [id number] 10:05:14 Test Item Value Reference Range Interpretation Comments UA Blood (test code = Small *ABN*(11/24/2013 UA Blood) 04:05:14 [facility] [id number] 10:05:14 Test Item Value Reference Range Interpretation Comments UA Ketones (test code = UA Negative mg/dL Ketones) [facility] [id number] 10:05:14 Test Item Value Reference Range Interpretation Comments UA Glucose (test code = UA Glucose) 30 mg/dL [facility] [id number] 10:05:14 Test Item Value Reference Range Interpretation Comments UA Bili (test code = Negative *NA*(11/24/2013 UA Bili) 04:05:14 [facility] [id number] 10:05:14 Test Item Value Reference Range Interpretation Comments Micro? (test code = Performed *NA*(11/24/2013 Micro?) 04:05:14 [facility] [id number] 10:05:14 Test Item Value Reference Range Interpretation Comments UA Mucus (test code = UA Mucus) Few /LPF [facility] AND [id number] 10:05:14 Test Item Value Reference Range Interpretation Comments UA RBC (test code = 1 See_Comment [Automa cruz message] The UA RBC) system which ge nerated this result transmit cruz reference range : <=2. The reference range was not used to interpr et this result as gee l/abnormal. [facility] [id number] 10:05:14 Test Item Value Reference Range Interpretation Comments UA Urobilinogen (test code = UA <=1.0 mg/dL 0.1-1.0 Urobilinogen) [facility] [id number] 10:05:14 Test Item Value Reference Range Interpretation Comments UA Turbidity (test code = Clear (11/24/2013 UA Turbidity) 04:05:14 [facility] [id number] 10:05:14 Test Item Value Reference Range Interpretation Comments UA Protein (test code = UA >=300 mg/dL Protein) [facility] [id number] 10:05:14 Test Item Value Reference Range Interpretation Comments UA pH (test code = UA pH) 6.5 5.0-8.0 [facility] [id number] 10:05:14 Test Item Value Reference Range Interpretation Comments UA Spec Grav (test code = UA Spec Grav) 1.010 [facility] [id number] 10:05:14 Test Item Value Reference Range Interpretation Comments UA Color (test code = Light Yellow UA Color) *NA*(11/24/2013 04:05:14 [facility] [id number] 10:05:14 Test Item Value Reference Range Interpretation Comments UA WBC (test code = 2 See_Comment [Automa cruz message] The UA WBC) system which ge nerated this result transmit cruz reference range : <=5. The reference range was not used to interpr et this result as gee l/abnormal. [facility] [id number] 10:05:14 Test Item Value Reference Range Interpretation Comments UA Sq Epi (test code = UA Sq Occasional /LPF Epi) [facility] [id number] 10:05:14 Test Item Value Reference Range Interpretation Comments UA Leuk Est (test Negative (11/24/2013 code = UA Leuk Est) 04:05:14 [facility] [id number] 10:05:14 Test Item Value Reference Range Interpretation Comments UA Nitrite (test code Negative (11/24/2013 = UA Nitrite) 04:05:14 [facility] [id number] 10:05:14 Test Item Value Reference Range Interpretation Comments UA Blood (test code = Small *ABN*(11/24/2013 UA Blood) 04:05:14 [facility] [id number] 10:05:14 Test Item Value Reference Range Interpretation Comments UA Ketones (test code = UA Negative mg/dL Ketones) [facility] [id number] 10:05:14 Test Item Value Reference Range Interpretation Comments UA Glucose (test code = UA Glucose) 30 mg/dL [facility] [id number] 10:05:14 Test Item Value Reference Range Interpretation Comments UA Bili (test code = Negative *NA*(11/24/2013 UA Bili) 04:05:14 [facility] [id number] 10:05:14 Test Item Value Reference Range Interpretation Comments Micro? (test code = Performed *NA*(11/24/2013 Micro?) 04:05:14 [facility] [id number] 10:05:14 Test Item Value Reference Range Interpretation Comments UA Mucus (test code = UA Mucus) Few /LPF [facility] [id number] 10:05:14 Test Item Value Reference Range Interpretation Comments UA RBC (test code = 1 See_Comment [Automa cruz message] The UA RBC) system which ge nerated this result transmit cruz reference range : <=2. The reference range was not used to interpr et this result as gee l/abnormal. [facility] [id number] 10:05:14 Test Item Value Reference Range Interpretation Comments UA Urobilinogen (test code = UA <=1.0 mg/dL 0.1-1.0 Urobilinogen) [facility] [id number] 10:05:14 Test Item Value Reference Range Interpretation Comments UA Turbidity (test code = Clear (11/24/2013 UA Turbidity) 04:05:14 [facility] [id number] 10:05:14 Test Item Value Reference Range Interpretation Comments UA Protein (test code = UA >=300 mg/dL Protein) [facility] [id number] 10:05:14 Test Item Value Reference Range Interpretation Comments UA pH (test code = UA pH) 6.5 5.0-8.0 [facility] [id number] 10:05:14 Test Item Value Reference Range Interpretation Comments UA Spec Grav (test code = UA Spec Grav) 1.010 [facility] [id number] 10:05:14 Test Item Value Reference Range Interpretation Comments UA Color (test code = Light Yellow UA Color) *NA*(11/24/2013 04:05:14 [facility] [id number] 10:05:14 Test Item Value Reference Range Interpretation Comments UA WBC (test code = 2 See_Comment [Automa cruz message] The UA WBC) system which ge nerated this result transmit cruz reference range : <=5. The reference range was not used to interpr et this result as gee l/abnormal. [facility] [id number] 10:05:14 Test Item Value Reference Range Interpretation Comments UA Sq Epi (test code = UA Sq Occasional /LPF Epi) [facility] [id number] 10:05:14 Test Item Value Reference Range Interpretation Comments UA Leuk Est (test Negative (11/24/2013 code = UA Leuk Est) 04:05:14 [facility] [id number] 10:05:14 Test Item Value Reference Range Interpretation Comments UA Nitrite (test code Negative (11/24/2013 = UA Nitrite) 04:05:14 [facility] [id number] 10:05:14 Test Item Value Reference Range Interpretation Comments UA Blood (test code = Small *ABN*(11/24/2013 UA Blood) 04:05:14 [facility] [id number] 10:05:14 Test Item Value Reference Range Interpretation Comments UA Ketones (test code = UA Negative mg/dL Ketones) [facility] [id number] 10:05:14 Test Item Value Reference Range Interpretation Comments UA Glucose (test code = UA Glucose) 30 mg/dL [facility] [id number] 10:05:14 Test Item Value Reference Range Interpretation Comments UA Bili (test code = Negative *NA*(11/24/2013 UA Bili) 04:05:14 [facility] [id number] 10:05:14 Test Item Value Reference Range Interpretation Comments UA Leuk Est (test Negative (11/24/2013 code = UA Leuk Est) 04:05:14 [facility] [id number] 10:05:14 Test Item Value Reference Range Interpretation Comments UA Nitrite (test code Negative (11/24/2013 = UA Nitrite) 04:05:14 [facility]) [facility] [id number] 10:05:14 Test Item Value Reference Range Interpretation Comments UA Blood (test code = Small *ABN*(11/24/2013 UA Blood) 04:05:14 [facility] [id number] 10:05:14 Test Item Value Reference Range Interpretation Comments UA Ketones (test code = UA Negative mg/dL Ketones) [facility] [id number] 10:05:14 Test Item Value Reference Range Interpretation Comments UA Glucose (test code = UA Glucose) 30 mg/dL [facility] [id number] 10:05:14 Test Item Value Reference Range Interpretation Comments UA Bili (test code = Negative *NA*(11/24/2013 UA Bili) 04:05:14 [facility] [id number] 10:05:14 Test Item Value Reference Range Interpretation Comments Micro? (test code = Performed *NA*(11/24/2013 Micro?) 04:05:14 [facility] [id number] 10:05:14 Test Item Value Reference Range Interpretation Comments UA Mucus (test code = UA Mucus) Few /LPF [facility] [id number] 10:05:14 Test Item Value Reference Range Interpretation Comments UA RBC (test code = 1 See_Comment [Automa cruz message] The UA RBC) system which ge nerated this result transmit cruz reference range : <=2. The reference range was not used to interpr et this result as gee l/abnormal. [facility] [id number] 10:05:14 Test Item Value Reference Range Interpretation Comments UA Urobilinogen (test code = UA <=1.0 mg/dL 0.1-1.0 Urobilinogen) [facility] [id number] 10:05:14 Test Item Value Reference Range Interpretation Comments UA Turbidity (test code = Clear (11/24/2013 UA Turbidity) 04:05:14 [facility]) [facility] [id number] 10:05:14 Test Item Value Reference Range Interpretation Comments UA Protein (test code = UA >=300 mg/dL Protein) [facility] [id number] 10:05:14 Test Item Value Reference Range Interpretation Comments UA pH (test code = UA pH) 6.5 5.0-8.0 [facility] [id number] 10:05:14 Test Item Value Reference Range Interpretation Comments UA Spec Grav (test code = UA Spec Grav) 1.010 [facility] [id number] 10:05:14 Test Item Value Reference Range Interpretation Comments UA Color (test code = Light Yellow UA Color) *NA*(11/24/2013 04:05:14 [facility] [id number] 10:05:14 Test Item Value Reference Range Interpretation Comments UA WBC (test code = 2 See_Comment [Automa cruz message] The UA WBC) system which ge nerated this result transmit cruz reference range : <=5. The reference range was not used to interpr et this result as gee l/abnormal. [facility] [id number] 10:05:14 Test Item Value Reference Range Interpretation Comments UA Sq Epi (test code = UA Sq Occasional /LPF Epi) [facility] [id number] 09:17:00 Test Item Value Reference Range Interpretation Comments Alk Phos (test code = Alk Phos) 108 39-136 [facility]2014-02-25 09:17:00 Test Item Value Reference Range Interpretation Comments ALANINE AMINOTRANSFERASE 20 See_Comment [A utomated message] (test code = ALANINE The sys tem which AMINOTRANSFERASE) generated this result transmitted ref erence range: <=65. Th e reference range was not used to int erpret this result as normal/abnormal . [facility]2014-02-25 09:17:00 Test Item Value Reference Range Interpretation Comments A/G Ratio (test code = A/G Ratio) 0.6 0.7-1.6 [place] [id number] 09:17:00 Test Item Value Reference Range Interpretation Comments Globulin (test code = Globulin) 4.6 2.0-4.0 [facility]2014-02-25 09:17:00 Test Item Value Reference Range Interpretation Comments B/C Ratio (test code = B/C Ratio) 11 03-23 [id number] 09:17:00 Test Item Value Reference Range Interpretation Comments Basophils # (test code 0.0 See_Comment [Aut omated message] The = Basophils #) system which generated this result tra nsmitted reference range : <=0.2. The reference r jillian was not used to int erpret this result as normal/abnormal . [facility] CenterZpzzdwkPTRJDULZQV8910-28-78 09:17:00 Test Item Value Reference Range Interpretation Comments Eosinophils # (test code 0.0 See_Comment [A utomated message] The = Eosinophils #) system whic h generated this result tra nsmitted reference range : <=0.5. The reference r jillian was not used to int erpret this result as normal/abnormal . [facility] [id number] 09:17:00 Test Item Value Reference Range Interpretation Comments Monocytes # (test code 0.4 See_Comment [Aut omated message] The = Monocytes #) system which generated this result tra nsmitted reference range : <=0.8. The reference r jillian was not used to int erpret this result as normal/abnormal . [place] [id number] 09:17:00 Test Item Value Reference Range Interpretation Comments Lymphocytes (test code = Lymphocytes) 15.7 20.0-40.0 [facility] [id number] 09:17:00 Test Item Value Reference Range Interpretation Comments Plt Morph (test code = Normal (11/23/2013 Plt Morph) 03:17:00 [facility] CenterAxaveiiGAFMKCQUAV4630-60-18 09:17:00 Test Item Value Reference Range Interpretation Comments Segs (test code = Segs) 76.6 45.0-75.0 [facility] CenterEdwkblyWDCOWFYMYS8247-69-86 09:17:00 Test Item Value Reference Range Interpretation Comments Lymphocytes # (test code = Lymphocytes 1.0 1.0-5.5 #) [facility] CenterFxzgmrvPDNYBTRZPT8824-52-94 09:17:00 Test Item Value Reference Range Interpretation Comments Basophils (test code = 0.2 See_Comment [Aut omated message] The Basophils) system which ge nerated this result tra nsmitted reference range : <=1.0. The reference r jillian was not used to int erpret this result as normal/abnormal . [facility] CenterEfngyrmQZQWAGMXHY8179-78-28 09:17:00 Test Item Value Reference Range Interpretation Comments Segs-Bands # (test code = Segs-Bands #) 4.7 1.5-8.1 [facility] CenterDksvimqSVQUENYNZH8379-75-10 09:17:00 Test Item Value Reference Range Interpretation Comments RBC Morph (test code = Normal (11/23/2013 RBC Morph) 03:17:00 [facility] [id number] 09:17:00 Test Item Value Reference Range Interpretation Comments Eosinophils (test code = 0.7 See_Comment [A utomated message] The Eosinophils) system which ge nerated this result tra nsmitted reference range : <=4.0. The reference r jillian was not used to int erpret this result as normal/abnormal . [facility] CenterIshsaqeHUIHTCAQHC9489-25-31 09:17:00 Test Item Value Reference Range Interpretation Comments Monocytes (test code = Monocytes) 6.8 2.0-12.0 [facility] CenterGwwkclpLGGLZYRCFP6967-01-49 09:17:00 Test Item Value Reference Range Interpretation Comments PROTIME (test code = PROTIME) 13.4 s 12.0-14.7 [facility] C[id number] 09:17:00 Test Item Value Reference Range Interpretation Comments INR (test code = INR) 1.03 0.85-1.17 [facility] CenterKncsdupNSEUMUVHRA8726-41-62 09:17:00 Test Item Value Reference Range Interpretation Comments MPV (test code = MPV) 9.9 7.4-10.4 [facility] CenterCaanqqxFQXLEJRUXE6757-20-26 09:17:00 Test Item Value Reference Range Interpretation Comments Platelet (test code = Platelet) 221 133-450 [facility] [id number] 09:17:00 Test Item Value Reference Range Interpretation Comments MCHC (test code = MCHC) 32.7 32.0-36.0 [facility] CenterYyhwnadYSDQYWNKAU3530-82-87 09:17:00 Test Item Value Reference Range Interpretation Comments MCH (test code = MCH) 30.0 pg 27.0-31.0 [facility] CenterJychprwLUSAKNMTWO5988-91-99 09:17:00 Test Item Value Reference Range Interpretation Comments RDW (test code = RDW) 14.7 11.5-14.5 [facility] CenterWnukmsrMOHBNLXBAZ3868-32-65 09:17:00 Test Item Value Reference Range Interpretation Comments WBC X 10x3 (test code = WBC X 10x3) 6.1 3.7-10.4 [facility] CenterYvqrvxlZIDNNLIVYK1162-02-73 09:17:00 Test Item Value Reference Range Interpretation Comments RBC X 10x6 (test code = RBC X 10x6) 4.88 4.70-6.10 [facility] CenterEkgbikuPLLSTGKFED1926-02-40 09:17:00 Test Item Value Reference Range Interpretation Comments Hgb (test code = Hgb) 14.6 14.0-18.0 [facility] CenterQlqsdgyATJLUSOWIU5715-14-38 09:17:00 Test Item Value Reference Range Interpretation Comments MCV (test code = MCV) 91.6 80.0-94.0 [facility] CenterAgvhqldKTCCQDTVMO1902-41-55 09:17:00 Test Item Value Reference Range Interpretation Comments Hct (test code = Hct) 44.6 42.0-54.0 [facility]2014-02-25 09:17:00 Test Item Value Reference Range Interpretation Comments Magnesium Lvl (test code = Magnesium 2.0 1.8-2.4 Lvl) [facility]2014-02-25 09:17:00 Test Item Value Reference Range Interpretation Comments Phosphorus (test code = Phosphorus) 2.5 2.5-4.5 [facility]2014-02-25 09:17:00 Test Item Value Reference Range Interpretation Comments Total Protein (test code = Total 7.3 6.4-8.4 Protein) [facility]2014-02-25 09:17:00 Test Item Value Reference Range Interpretation Comments Albumin Lvl (test code = Albumin Lvl) 2.7 3.5-5.0 [place] [facility] 09:17:00 Test Item Value Reference Range Interpretation Comments ASPARTATE TRANSAMINASE 21 See_Comment [Aut omated message] (test code = ASPARTATE The s ystem which TRANSAMINASE) generated this result transmitted ref erence range: <=37. Th e reference range was not used to interpr et this result as normal/abnormal . [facility]2014-02-25 09:17:00 Test Item Value Reference Range Interpretation Comments Bili Total (test code = Bili Total) 0.6 0.2-1.3 [facility]2014-02-25 09:17:00 Test Item Value Reference Range Interpretation Comments Alk Phos (test code = Alk Phos) 108 39-136 [facility]2014-02-25 09:17:00 Test Item Value Reference Range Interpretation Comments ALANINE AMINOTRANSFERASE 20 See_Comment [A utomated message] (test code = ALANINE The sys tem which AMINOTRANSFERASE) generated this result transmitted ref erence range: <=65. Th e reference range was not used to int erpret this result as normal/abnormal . [facility]2014-02-25 09:17:00 Test Item Value Reference Range Interpretation Comments A/G Ratio (test code = A/G Ratio) 0.6 0.7-1.6 [facility]2014-02-25 09:17:00 Test Item Value Reference Range Interpretation Comments Globulin (test code = Globulin) 4.6 2.0-4.0 [facility]2014-02-25 09:17:00 Test Item Value Reference Range Interpretation Comments B/C Ratio (test code = B/C Ratio) 11 -25 [facility]GolxwxdIQRJYBOLPQ4400-44-19 09:17:00 Test Item Value Reference Range Interpretation Comments Basophils # (test code 0.0 See_Comment [Aut omated message] The = Basophils #) system which generated this result tra nsmitted reference range : <=0.2. The reference r jillian was not used to int erpret this result as normal/abnormal . [facility] CenterUzqrjaaONQVJZBPFD2381-80-89 09:17:00 Test Item Value Reference Range Interpretation Comments Eosinophils # (test code 0.0 See_Comment [A utomated message] The = Eosinophils #) system whic h generated this result tra nsmitted reference range : <=0.5. The reference r jillian was not used to int erpret this result as normal/abnormal . [facility] CenterIaqarmxDDMUDPZZBG4475-83-73 09:17:00 Test Item Value Reference Range Interpretation Comments Monocytes # (test code 0.4 See_Comment [Aut omated message] The = Monocytes #) system which generated this result tra nsmitted reference range : <=0.8. The reference r jillian was not used to int erpret this result as normal/abnormal . [facility] CenterUankmgeSXYZMYXSMI0558-83-27 09:17:00 Test Item Value Reference Range Interpretation Comments Lymphocytes (test code = Lymphocytes) 15.7 20.0-40.0 [facility] CenterVkegzlqLZOTQVWHPO6329-28-31 09:17:00 Test Item Value Reference Range Interpretation Comments Plt Morph (test code = Normal (11/23/2013 Plt Morph) 03:17:00 [facility]/[place]) [facility] CenterTicoltsVFMMFMWYYW5356-80-88 09:17:00 Test Item Value Reference Range Interpretation Comments Segs (test code = Segs) 76.6 45.0-75.0 [facility] CenterBdyfjznYHSWRDUJQC5811-72-20 09:17:00 Test Item Value Reference Range Interpretation Comments Lymphocytes # (test code = Lymphocytes 1.0 1.0-5.5 #) [facility] CenterIifwqqoLAVEVBBWYF2976-00-49 09:17:00 Test Item Value Reference Range Interpretation Comments Basophils (test code = 0.2 See_Comment [Aut omated message] The Basophils) system which ge nerated this result tra nsmitted reference range : <=1.0. The reference r jillian was not used to int erpret this result as normal/abnormal . [facility] CenterRyjpdjwVMVQCPFEXW2344-06-98 09:17:00 Test Item Value Reference Range Interpretation Comments Segs-Bands # (test code = Segs-Bands #) 4.7 1.5-8.1 [facility] CenterLoqrjrqDPDDIHNQJJ1499-17-95 09:17:00 Test Item Value Reference Range Interpretation Comments RBC Morph (test code = Normal (11/23/2013 RBC Morph) 03:17:00 [facility]/[place]) [facility] CenterDelkvbuCUXUIXJGWS1431-43-02 09:17:00 Test Item Value Reference Range Interpretation Comments Eosinophils (test code = 0.7 See_Comment [A utomated message] The Eosinophils) system which ge nerated this result tra nsmitted reference range : <=4.0. The reference r jillian was not used to int erpret this result as normal/abnormal . [facility] CenterRyyqwjlAILCZGLWPO1753-93-73 09:17:00 Test Item Value Reference Range Interpretation Comments Monocytes (test code = Monocytes) 6.8 2.0-12.0 [facility] CenterHmrciopLKCGIUGCTX5720-16-05 09:17:00 Test Item Value Reference Range Interpretation Comments PROTIME (test code = PROTIME) 13.4 s 12.0-14.7 [facility] CenterRfkrqyqUORKBIMNZY1492-42-53 09:17:00 Test Item Value Reference Range Interpretation Comments INR (test code = INR) 1.03 0.85-1.17 [facility] CenterSpglspnSRPEWNKNNS2383-67-58 09:17:00 Test Item Value Reference Range Interpretation Comments MPV (test code = MPV) 9.9 7.4-10.4 [facility] CenterUfsyokgSSYAGTGUWN6461-09-77 09:17:00 Test Item Value Reference Range Interpretation Comments Platelet (test code = Platelet) 221 133-450 [facility] CenterNvoilzmWIBNKAJRHN9982-55-37 09:17:00 Test Item Value Reference Range Interpretation Comments MCHC (test code = MCHC) 32.7 32.0-36.0 [facility] CenterXsxcegeIJKEUSOYLI3304-95-40 09:17:00 Test Item Value Reference Range Interpretation Comments MCH (test code = MCH) 30.0 pg 27.0-31.0 [facility] CenterIgsyydrDVDZFOJJOR9573-23-72 09:17:00 Test Item Value Reference Range Interpretation Comments RDW (test code = RDW) 14.7 11.5-14.5 [facility] CenterEjgzjdlVHRJFWMLVL8802-81-80 09:17:00 Test Item Value Reference Range Interpretation Comments WBC X 10x3 (test code = WBC X 10x3) 6.1 3.7-10.4 [facility] CenterLzdcuryDUKLCWOCID2895-98-13 09:17:00 Test Item Value Reference Range Interpretation Comments RBC X 10x6 (test code = RBC X 10x6) 4.88 4.70-6.10 [facility] CenterMqepmhiSNYBGVNOEA1756-57-10 09:17:00 Test Item Value Reference Range Interpretation Comments Hgb (test code = Hgb) 14.6 14.0-18.0 [facility] CenterXxvcypdYRPYBHZLBR7421-36-33 09:17:00 Test Item Value Reference Range Interpretation Comments MCV (test code = MCV) 91.6 80.0-94.0 [facility] CenterGpqpugdFRSEVWZOQJ6267-72-56 09:17:00 Test Item Value Reference Range Interpretation Comments Hct (test code = Hct) 44.6 42.0-54.0 [facility]2014-02-25 09:17:00 Test Item Value Reference Range Interpretation Comments Magnesium Lvl (test code = Magnesium 2.0 1.8-2.4 Lvl) [facility]2014-02-25 09:17:00 Test Item Value Reference Range Interpretation Comments Phosphorus (test code = Phosphorus) 2.5 2.5-4.5 [facility]2014-02-25 09:17:00 Test Item Value Reference Range Interpretation Comments Total Protein (test code = Total 7.3 6.4-8.4 Protein) [facility]2014-02-25 09:17:00 Test Item Value Reference Range Interpretation Comments Albumin Lvl (test code = Albumin Lvl) 2.7 3.5-5.0 [facility]2014-02-25 09:17:00 Test Item Value Reference Range Interpretation Comments ASPARTATE TRANSAMINASE 21 See_Comment [Aut omated message] (test code = ASPARTATE The s ystem which TRANSAMINASE) generated this result transmitted ref erence range: <=37. Th e reference range was not used to interpr et this result as normal/abnormal . [facility]2014-02-25 09:17:00 Test Item Value Reference Range Interpretation Comments Bili Total (test code = Bili Total) 0.6 0.2-1.3 [facility]2014-02-25 09:17:00 Test Item Value Reference Range Interpretation Comments Alk Phos (test code = Alk Phos) 108 39-136 [facility]2014-02-25 09:17:00 Test Item Value Reference Range Interpretation Comments ALANINE AMINOTRANSFERASE 20 See_Comment [A utomated message] (test code = ALANINE The sys tem which AMINOTRANSFERASE) generated this result transmitted ref erence range: <=65. Th e reference range was not used to int erpret this result as normal/abnormal . [facility]2014-02-25 09:17:00 Test Item Value Reference Range Interpretation Comments A/G Ratio (test code = A/G Ratio) 0.6 0.7-1.6 [place] 604384-02-25 09:17:00 Test Item Value Reference Range Interpretation Comments Globulin (test code = Globulin) 4.6 2.0-4.0 [facility]2014-02-25 09:17:00 Test Item Value Reference Range Interpretation Comments B/C Ratio (test code = B/C Ratio) 11 03-23 [facility] CenterVfzekubPLCHWTPGFI3881-75-00 09:17:00 Test Item Value Reference Range Interpretation Comments Basophils # (test code 0.0 See_Comment [Aut omated message] The = Basophils #) system which generated this result tra nsmitted reference range : <=0.2. The reference r jillian was not used to int erpret this result as normal/abnormal . [facility] CenterJulaqwgXBPXSTTNCK1907-22-83 09:17:00 Test Item Value Reference Range Interpretation Comments Eosinophils # (test code 0.0 See_Comment [A utomated message] The = Eosinophils #) system whic h generated this result tra nsmitted reference range : <=0.5. The reference r jillian was not used to int erpret this result as normal/abnormal . [facility] CenterTmkvzkaVSIICEBWJP1683-48-47 09:17:00 Test Item Value Reference Range Interpretation Comments Monocytes # (test code 0.4 See_Comment [Aut omated message] The = Monocytes #) system which generated this result tra nsmitted reference range : <=0.8. The reference r jillian was not used to int erpret this result as normal/abnormal . [facility] CenterMuifbceCFHKDXOVSN6565-69-56 09:17:00 Test Item Value Reference Range Interpretation Comments Lymphocytes (test code = Lymphocytes) 15.7 20.0-40.0 [facility] CenterHmwktsxBBTJZKTAWH8139-15-12 09:17:00 Test Item Value Reference Range Interpretation Comments Plt Morph (test code = Normal (11/23/2013 Plt Morph) 03:17:00 [facility]/[place]) [facility] CenterRncukfeKRADBFJORG3656-76-21 09:17:00 Test Item Value Reference Range Interpretation Comments Segs (test code = Segs) 76.6 45.0-75.0 [facility] CenterBmqvcnvOXZSOWECXS9888-61-62 09:17:00 Test Item Value Reference Range Interpretation Comments Lymphocytes # (test code = Lymphocytes 1.0 1.0-5.5 #) [facility] CenterWuayqbpJJOTYELNQL6398-31-12 09:17:00 Test Item Value Reference Range Interpretation Comments Basophils (test code = 0.2 See_Comment [Aut omated message] The Basophils) system which ge nerated this result tra nsmitted reference range : <=1.0. The reference r jillian was not used to int erpret this result as normal/abnormal . [facility] CenterIzvqzpdXGBKPFFPVY1458-21-31 09:17:00 Test Item Value Reference Range Interpretation Comments Segs-Bands # (test code = Segs-Bands #) 4.7 1.5-8.1 [facility] CenterSwxacheOZQACRSXQO5521-44-13 09:17:00 Test Item Value Reference Range Interpretation Comments RBC Morph (test code = Normal (11/23/2013 RBC Morph) 03:17:00 [facility]/[place]) [facility] CenterWpjtspvOYBDSGIXTH3000-54-30 09:17:00 Test Item Value Reference Range Interpretation Comments Eosinophils (test code = 0.7 See_Comment [A utomated message] The Eosinophils) system which ge nerated this result tra nsmitted reference range : <=4.0. The reference r jillian was not used to int erpret this result as normal/abnormal . [facility] CenterGjmtllvOBBWCGFDEM9863-15-59 09:17:00 Test Item Value Reference Range Interpretation Comments Monocytes (test code = Monocytes) 6.8 2.0-12.0 [facility] CenterVbtlssfKIZGZKMVCW0223-24-41 09:17:00 Test Item Value Reference Range Interpretation Comments PROTIME (test code = PROTIME) 13.4 s 12.0-14.7 [facility] CenterLbbahkxGHVIDFFRKP3892-08-32 09:17:00 Test Item Value Reference Range Interpretation Comments INR (test code = INR) 1.03 0.85-1.17 [facility] CenterFnefiygSGHNNQIAQT2558-78-44 09:17:00 Test Item Value Reference Range Interpretation Comments MPV (test code = MPV) 9.9 7.4-10.4 [facility] CenterWuisdrmIIOSHLRYXU4023-05-47 09:17:00 Test Item Value Reference Range Interpretation Comments Platelet (test code = Platelet) 221 133-450 [facility] CenterWhcqbqcDQYTDUDOVW5631-10-11 09:17:00 Test Item Value Reference Range Interpretation Comments MCHC (test code = MCHC) 32.7 32.0-36.0 [facility] CenterNqaylzuFATLFORFHY2108-19-32 09:17:00 Test Item Value Reference Range Interpretation Comments MCH (test code = MCH) 30.0 pg 27.0-31.0 [facility] CenterSvrillqQQVRPCAZOD5710-17-64 09:17:00 Test Item Value Reference Range Interpretation Comments RDW (test code = RDW) 14.7 11.5-14.5 [facility] CenterCleuxfeDBVWMIFOBT0573-19-74 09:17:00 Test Item Value Reference Range Interpretation Comments WBC X 10x3 (test code = WBC X 10x3) 6.1 3.7-10.4 [facility] CenterVptetrlLQEYHZHMXP0154-74-97 09:17:00 Test Item Value Reference Range Interpretation Comments RBC X 10x6 (test code = RBC X 10x6) 4.88 4.70-6.10 [facility] CenterLgzdgouNASNSPZBIQ4977-14-90 09:17:00 Test Item Value Reference Range Interpretation Comments Hgb (test code = Hgb) 14.6 14.0-18.0 [facility] CenterBxoxoskQYDXBGUVJD7224-46-95 09:17:00 Test Item Value Reference Range Interpretation Comments MCV (test code = MCV) 91.6 80.0-94.0 [facility] CenterLvldigiHKKDNWFREY3111-19-92 09:17:00 Test Item Value Reference Range Interpretation Comments Hct (test code = Hct) 44.6 42.0-54.0 [facility]2014-02-25 09:17:00 Test Item Value Reference Range Interpretation Comments Magnesium Lvl (test code = Magnesium 2.0 1.8-2.4 Lvl) [facility]2014-02-25 09:17:00 Test Item Value Reference Range Interpretation Comments Phosphorus (test code = Phosphorus) 2.5 2.5-4.5 [place] 604384-02-25 09:17:00 Test Item Value Reference Range Interpretation Comments Total Protein (test code = Total 7.3 6.4-8.4 Protein) [facility]2014-02-25 09:17:00 Test Item Value Reference Range Interpretation Comments Albumin Lvl (test code = Albumin Lvl) 2.7 3.5-5.0 [place] 604384-02-25 09:17:00 Test Item Value Reference Range Interpretation Comments ASPARTATE TRANSAMINASE 21 See_Comment [Aut omated message] (test code = ASPARTATE The s ystem which TRANSAMINASE) generated this result transmitted ref erence range: <=37. Th e reference range was not used to interpr et this result as normal/abnormal . [place] 604384-02-25 09:17:00 Test Item Value Reference Range Interpretation Comments Bili Total (test code = Bili Total) 0.6 0.2-1.3 [place] 604384-02-25 09:17:00 Test Item Value Reference Range Interpretation Comments Magnesium Lvl (test code = Magnesium 2.0 1.8-2.4 Lvl) [facility]2014-02-25 09:17:00 Test Item Value Reference Range Interpretation Comments Phosphorus (test code = Phosphorus) 2.5 2.5-4.5 [facility]2014-02-25 09:17:00 Test Item Value Reference Range Interpretation Comments Total Protein (test code = Total 7.3 6.4-8.4 Protein) [place] 604384-02-25 09:17:00 Test Item Value Reference Range Interpretation Comments Albumin Lvl (test code = Albumin Lvl) 2.7 3.5-5.0 [place] 604384-02-25 09:17:00 Test Item Value Reference Range Interpretation Comments ASPARTATE TRANSAMINASE 21 See_Comment [Aut omated message] (test code = ASPARTATE The s ystem which TRANSAMINASE) generated this result transmitted ref erence range: <=37. Th e reference range was not used to interpr et this result as normal/abnormal . [place] 604384-02-25 09:17:00 Test Item Value Reference Range Interpretation Comments Bili Total (test code = Bili Total) 0.6 0.2-1.3 [facility]2014-02-25 09:17:00 Test Item Value Reference Range Interpretation Comments Alk Phos (test code = Alk Phos) 108 39-136 [facility]2014-02-25 09:17:00 Test Item Value Reference Range Interpretation Comments ALANINE AMINOTRANSFERASE 20 See_Comment [A utomated message] (test code = ALANINE The sys tem which AMINOTRANSFERASE) generated this result transmitted ref erence range: <=65. Th e reference range was not used to int erpret this result as normal/abnormal . [facility]2014-02-25 09:17:00 Test Item Value Reference Range Interpretation Comments A/G Ratio (test code = A/G Ratio) 0.6 0.7-1.6 [place] 604384-02-25 09:17:00 Test Item Value Reference Range Interpretation Comments Globulin (test code = Globulin) 4.6 2.0-4.0 [facility]2014-02-25 09:17:00 Test Item Value Reference Range Interpretation Comments B/C Ratio (test code = B/C Ratio) 11 6-25 [facility] CenterHsboysrPRJHXXOVCP5291-86-71 09:17:00 Test Item Value Reference Range Interpretation Comments Basophils # (test code 0.0 See_Comment [Aut omated message] The = Basophils #) system which generated this result tra nsmitted reference range : <=0.2. The reference r jillian was not used to int erpret this result as normal/abnormal . [facility] CenterUunptnjISQLZAWJUV3207-51-00 09:17:00 Test Item Value Reference Range Interpretation Comments Eosinophils # (test code 0.0 See_Comment [A utomated message] The = Eosinophils #) system whic h generated this result tra nsmitted reference range : <=0.5. The reference r jillian was not used to int erpret this result as normal/abnormal . [facility] CenterUgklamzLTHPIOBMAH3085-15-83 09:17:00 Test Item Value Reference Range Interpretation Comments Monocytes # (test code 0.4 See_Comment [Aut omated message] The = Monocytes #) system which generated this result tra nsmitted reference range : <=0.8. The reference r jillian was not used to int erpret this result as normal/abnormal . [place] 441644-02-25 09:17:00 Test Item Value Reference Range Interpretation Comments Lymphocytes (test code = Lymphocytes) 15.7 20.0-40.0 [facility] CenterRwqodnsYLIBJEBRJY5806-44-89 09:17:00 Test Item Value Reference Range Interpretation Comments Plt Morph (test code = Normal (11/23/2013 Plt Morph) 03:17:00 [place]) [facility] CenterRnvklcnKQKQRYUWAF3394-53-88 09:17:00 Test Item Value Reference Range Interpretation Comments Segs (test code = Segs) 76.6 45.0-75.0 [facility] CenterQxgiaahPEXAUCWVKI2062-55-27 09:17:00 Test Item Value Reference Range Interpretation Comments Lymphocytes # (test code = Lymphocytes 1.0 1.0-5.5 #) [facility] CenterVtskwbxDRATHSIPGL8807-21-78 09:17:00 Test Item Value Reference Range Interpretation Comments Basophils (test code = 0.2 See_Comment [Aut omated message] The Basophils) system which ge nerated this result tra nsmitted reference range : <=1.0. The reference r jillian was not used to int erpret this result as normal/abnormal . [facility] CenterHweadhpPSBYLNEBLN1498-58-12 09:17:00 Test Item Value Reference Range Interpretation Comments Segs-Bands # (test code = Segs-Bands #) 4.7 1.5-8.1 [facility] CenterYyvlfpmVAOPGTQLXJ1625-90-90 09:17:00 Test Item Value Reference Range Interpretation Comments RBC Morph (test code = Normal (11/23/2013 RBC Morph) 03:17:00 [facility]/[place]) [facility] CenterUzxfujuVMQUVRYHRC8816-65-65 09:17:00 Test Item Value Reference Range Interpretation Comments Eosinophils (test code = 0.7 See_Comment [A utomated message] The Eosinophils) system which ge nerated this result tra nsmitted reference range : <=4.0. The reference r jillian was not used to int erpret this result as normal/abnormal . [facility] CenterQccdkwsZGWTKMLGHY5300-93-44 09:17:00 Test Item Value Reference Range Interpretation Comments Monocytes (test code = Monocytes) 6.8 2.0-12.0 [facility] CenterUesyvcoBVDNRVWOEP7226-64-60 09:17:00 Test Item Value Reference Range Interpretation Comments PROTIME (test code = PROTIME) 13.4 s 12.0-14.7 [facility] CenterCygsnevPRHKSEZNIO5445-92-01 09:17:00 Test Item Value Reference Range Interpretation Comments INR (test code = INR) 1.03 0.85-1.17 [facility] CenterEgfgfzjSQNAQGPCGC5279-24-96 09:17:00 Test Item Value Reference Range Interpretation Comments MPV (test code = MPV) 9.9 7.4-10.4 [facility] CenterYyugdrfCAVMAIKJOK0313-24-28 09:17:00 Test Item Value Reference Range Interpretation Comments Platelet (test code = Platelet) 221 133-450 [facility] CenterSkupfbmIBLJCEEVOF9966-30-48 09:17:00 Test Item Value Reference Range Interpretation Comments MCHC (test code = MCHC) 32.7 32.0-36.0 [facility] CenterQpeoeqtXQLBCSDAXC1272-23-09 09:17:00 Test Item Value Reference Range Interpretation Comments MCH (test code = MCH) 30.0 pg 27.0-31.0 [facility] CenterBeahyrmSRUCXXCHQN4167-42-70 09:17:00 Test Item Value Reference Range Interpretation Comments RDW (test code = RDW) 14.7 11.5-14.5 [facility] CenterKpbjdysXDMRVZBSNH8372-87-68 09:17:00 Test Item Value Reference Range Interpretation Comments WBC X 10x3 (test code = WBC X 10x3) 6.1 3.7-10.4 [facility] CenterDutggjyIIAXMEOTTI2903-04-47 09:17:00 Test Item Value Reference Range Interpretation Comments RBC X 10x6 (test code = RBC X 10x6) 4.88 4.70-6.10 [facility] CenterShpppepAUBFYSUFSL7183-20-26 09:17:00 Test Item Value Reference Range Interpretation Comments Hgb (test code = Hgb) 14.6 14.0-18.0 [facility] CenterYionvhwZGNDPZFITB8072-79-32 09:17:00 Test Item Value Reference Range Interpretation Comments MCV (test code = MCV) 91.6 80.0-94.0 [facility] CenterFurnexuFNWHJTDQUC1932-72-51 09:17:00 Test Item Value Reference Range Interpretation Comments Hct (test code = Hct) 44.6 42.0-54.0 [facility]2014-02-25 04:30:00 Test Item Value Reference Range Interpretation Comments Total CK (test code = Total CK) 155 12-191 [facility] AcquisitionAC UZHNQDR4859-38-18 04:30:00 Test Item Value Reference Range Interpretation Comments CK MB (test code = CK MB) 0.9 0.5-3.6 [facility] CenterannCARDIAC OIEECXP2751-17-61 04:30:00 Test Item Value Reference Range Interpretation Comments Troponin-I (test code no gt See_Comment [Auto mated message] The = Troponin-I) system which g enerated this result transmit cruz reference range : <=0.40. The reference r jillian was not used to interpr et this result as gee l/abnormal. [facility] [employer] ESQBQOT4111-88-48 04:30:00 Test Item Value Reference Range Interpretation Comments Total CK (test code = Total CK) 155 12-[address] [facility] HospitalFantasySalesTeam EJCTRMJ9612-44-33 04:30:00 Test Item Value Reference Range Interpretation Comments CK MB (test code = CK MB) 0.9 0.5-3.6 [facility] AcquisitionAC QRZDRSK3336-21-15 04:30:00 Test Item Value Reference Range Interpretation Comments Troponin-I (test code no gt See_Comment [Auto mated message] The = Troponin-I) system which g enerated this result transmit cruz reference range : <=0.40. The reference r jillian was not used to interpr et this result as gee l/abnormal. [facility] [employer]2014-02-25 04:30:00 Test Item Value Reference Range Interpretation Comments Total CK (test code = Total CK) 155 12-191 [facility]quisitionAC XZQWYLO4012-25-16 04:30:00 Test Item Value Reference Range Interpretation Comments CK MB (test code = CK MB) 0.9 0.5-3.6 [facility] CenterannCARFilmDooAC ISWDNHU0212-45-92 04:30:00 Test Item Value Reference Range Interpretation Comments Troponin-I (test code no gt See_Comment [Auto mated message] The = Troponin-I) system which g enerated this result transmit cruz reference range : <=0.40. The reference r jillian was not used to interpr et this result as gee l/abnormal. [facility] [employer] BABUXEC2145-66-50 04:30:00 Test Item Value Reference Range Interpretation Comments Total CK (test code = Total CK) 155 -191 [facility] CenterPoikosCARFilmDooAC DBMRMDS8973-63-44 04:30:00 Test Item Value Reference Range Interpretation Comments CK MB (test code = CK MB) 0.9 0.5-3.6 [facility] CenterannCARDIAC HWAAXMG7663-86-58 04:30:00 Test Item Value Reference Range Interpretation Comments Troponin-I (test code no gt See_Comment [Auto mated message] The = Troponin-I) system which g enerated this result transmit cruz reference range : <=0.40. The reference r jillian was not used to interpr et this result as gee l/abnormal. [facility] [facility] [employer]CARFilmDooAC [id number] 22:30:00 Test Item Value Reference Range Interpretation Comments Total CK (test code = Total CK) 142 [facility] [id number] 22:30:00 Test Item Value Reference Range Interpretation Comments CK MB (test code = CK MB) 0.8 0.5-3.6 [facility] [id number] 22:30:00 Test Item Value Reference Range Interpretation Comments Troponin-I (test code no gt See_Comment [Auto mated message] The = Troponin-I) system which g enerated this result transmit cruz reference range : <=0.40. The reference r jillian was not used to interpr et this result as gee l/abnormal. [facility] [employer] [id number] 22:30:00 Test Item Value Reference Range Interpretation Comments Total CK (test code = Total CK) 142 [facility] [employer] [id number] 22:30:00 Test Item Value Reference Range Interpretation Comments CK MB (test code = CK MB) 0.8 0.5-3.6 [facility] [id number] 22:30:00 Test Item Value Reference Range Interpretation Comments Troponin-I (test code no gt See_Comment [Auto mated message] The = Troponin-I) system which g enerated this result transmit cruz reference range : <=0.40. The reference r jillian was not used to interpr et this result as gee l/abnormal. [facility] [employer] [id number] 22:30:00 Test Item Value Reference Range Interpretation Comments Total CK (test code = Total CK) 142 12-191 [facility] HermannCARDIAC [id number] 22:30:00 Test Item Value Reference Range Interpretation Comments CK MB (test code = CK MB) 0.8 0.5-3.6 [facility] [id number] 22:30:00 Test Item Value Reference Range Interpretation Comments Troponin-I (test code no gt See_Comment [Auto mated message] The = Troponin-I) system which g enerated this result transmit cruz reference range : <=0.40. The reference r jillian was not used to interpr et this result as gee l/abnormal. [facility] HermannCARDIAC [id number] 22:30:00 Test Item Value Reference Range Interpretation Comments Total CK (test code = Total CK) 142 -191 [facility] [id number] 22:30:00 Test Item Value Reference Range Interpretation Comments CK MB (test code = CK MB) 0.8 0.5-3.6 [facility] [id number] 22:30:00 Test Item Value Reference Range Interpretation Comments Troponin-I (test code no gt See_Comment [Auto mated message] The = Troponin-I) system which g enerated this result transmit cruz reference range : <=0.40. The reference r jillian was not used to interpr et this result as gee l/abnormal. [facility] [employer] [id number] 22:00:00 Test Item Value Reference Range Interpretation Comments U Amph Scr (test code Negative *NA*(11/22/2013 = U Amph Scr) 16:00:00 [place]) [facility] HermannDRUG [id number] 22:00:00 Test Item Value Reference Range Interpretation Comments U Cocaine Scr (test Positive code = U Cocaine Scr) *ABN*(11/22/2013 16:00:00 [facility]/[place]) [facility] [id number] 22:00:00 Test Item Value Reference Range Interpretation Comments U Opiate Scr (test Negative code = U Opiate Scr) *NA*(11/22/2013 16:00:00 [facility]/[place]) [facility] [id number] 22:00:00 Test Item Value Reference Range Interpretation Comments U Cannab Scr (test Negative code = U Cannab Scr) *NA*(11/22/2013 16:00:00 [facility]/[place]) [facility] [id number] 22:00:00 Test Item Value Reference Range Interpretation Comments U Benzodia Scr (test Negative code = U Benzodia Scr) *NA*(11/22/2013 16:00:00 [facility]/[place]) [facility]ann[facility] [id number] 22:00:00 Test Item Value Reference Range Interpretation Comments U Romy Scr (test code Negative *NA*(11/22/2013 = U Romy Scr) 16:00:00 [facility]/[place]) [facility]ann[facility] [id number] 22:00:00 Test Item Value Reference Range Interpretation Comments UDS Note (test code = See Note 8(11/22/2013 UDS Note) 16:00:00 [place]) [facility] [id number] 22:00:00 Test Item Value Reference Range Interpretation Comments U Phencyc Scr (test Negative code = U Phencyc Scr) *NA*(11/22/2013 16:00:00 [facility]/[place]) [facility] [id number] 22:00:00 Test Item Value Reference Range Interpretation Comments UA Urobilinogen (test code = UA <=1.0 mg/dL 0.1-1.0 Urobilinogen) [facility] [id number] 22:00:00 Test Item Value Reference Range Interpretation Comments UA Sq Epi (test code = UA Sq Epi) None Seen [facility] [id number] 22:00:00 Test Item Value Reference Range Interpretation Comments UA Bili (test code = Negative *NA*(11/22/2013 UA Bili) 16:00:00 [facility]/[place]) [facility] [id number] 22:00:00 Test Item Value Reference Range Interpretation Comments UA Blood (test code = Small *ABN*(11/22/2013 UA Blood) 16:00:00 [facility]/[place]) [facility] [id number] 22:00:00 Test Item Value Reference Range Interpretation Comments UA Nitrite (test code Negative (11/22/2013 = UA Nitrite) 16:00:00 [facility]/[place]) [facility] [id number] 22:00:00 Test Item Value Reference Range Interpretation Comments UA WBC (test code = 1 See_Comment [Automa cruz message] The UA WBC) system which ge nerated this result transmit cruz reference range : <=5. The reference range was not used to interpr et this result as gee l/abnormal. [facility] AND [id number] 22:00:00 Test Item Value Reference Range Interpretation Comments UA Leuk Est (test Negative (11/22/2013 code = UA Leuk Est) 16:00:00 [place]) [facility] AND [id number] 22:00:00 Test Item Value Reference Range Interpretation Comments UA RBC (test code = 1 See_Comment [Automa cruz message] The UA RBC) system which ge nerated this result transmit cruz reference range : <=2. The reference range was not used to interpr et this result as gee l/abnormal. [facility] AND [id number] 22:00:00 Test Item Value Reference Range Interpretation Comments UA Mucus (test code = UA Mucus) Few /LPF [facility] AND [id number] 22:00:00 Test Item Value Reference Range Interpretation Comments UA Bacteria (test code = UA Occasional /HPF Bacteria) [facility] AND [id number] 22:00:00 Test Item Value Reference Range Interpretation Comments UA Turbidity (test code = Clear (11/22/2013 UA Turbidity) 16:00:00 [facility]/[place]) [facility] AND [id number] 22:00:00 Test Item Value Reference Range Interpretation Comments UA Color (test code = Light Yellow UA Color) *NA*(11/22/2013 16:00:00 [place]) [facility] AND [id number] 22:00:00 Test Item Value Reference Range Interpretation Comments UA Spec Grav (test code = UA Spec Grav) 1.009 [facility] AND [id number] 22:00:00 Test Item Value Reference Range Interpretation Comments UA Glucose (test code = UA Glucose) 70 mg/dL [facility] AND [id number] 22:00:00 Test Item Value Reference Range Interpretation Comments UA Protein (test code = UA >=300 mg/dL Protein) [facility] AND [id number] 22:00:00 Test Item Value Reference Range Interpretation Comments UA pH (test code = UA pH) 6.0 5.0-8.0 [facility] [id number] 22:00:00 Test Item Value Reference Range Interpretation Comments UA Ketones (test code = UA Negative mg/dL Ketones) [facility] [id number] 22:00:00 Test Item Value Reference Range Interpretation Comments U Amph Scr (test code Negative *NA*(11/22/2013 = U Amph Scr) 16:00:00 [place]) [facility] [id number] 22:00:00 Test Item Value Reference Range Interpretation Comments U Cocaine Scr (test Positive code = U Cocaine Scr) *ABN*(11/22/2013 16:00:00 [facility]/[place]) [facility] [id number] 22:00:00 Test Item Value Reference Range Interpretation Comments U Opiate Scr (test Negative code = U Opiate Scr) *NA*(11/22/2013 16:00:00 [facility]/[place]) [facility] [id number] 22:00:00 Test Item Value Reference Range Interpretation Comments U Cannab Scr (test Negative code = U Cannab Scr) *NA*(11/22/2013 16:00:00 [facility]/[place]) [facility] [id number] 22:00:00 Test Item Value Reference Range Interpretation Comments U Benzodia Scr (test Negative code = U Benzodia Scr) *NA*(11/22/2013 16:00:00 [facility]/[place]) [facility] [id number] 22:00:00 Test Item Value Reference Range Interpretation Comments U Romy Scr (test code Negative *NA*(11/22/2013 = U Romy Scr) 16:00:00 [facility]/[place]) [facility] [id number] 22:00:00 Test Item Value Reference Range Interpretation Comments UDS Note (test code = See Note 8(11/22/2013 UDS Note) 16:00:00 [place]) [facility] [id number] 22:00:00 Test Item Value Reference Range Interpretation Comments U Phencyc Scr (test Negative code = U Phencyc Scr) *NA*(11/22/2013 16:00:00 [facility]/[place]) [facility] [id number] 22:00:00 Test Item Value Reference Range Interpretation Comments UA Urobilinogen (test code = UA <=1.0 mg/dL 0.1-1.0 Urobilinogen) [facility] [id number] 22:00:00 Test Item Value Reference Range Interpretation Comments UA Sq Epi (test code = UA Sq Epi) None [facility] [id number] 22:00:00 Test Item Value Reference Range Interpretation Comments UA Bili (test code = Negative *NA*(11/22/2013 UA Bili) 16:00:00 [facility] [id number] 22:00:00 Test Item Value Reference Range Interpretation Comments UA Blood (test code = Small *ABN*(11/22/2013 UA Blood) 16:00:00 [facility]/[place]) [facility] AND [id number] 22:00:00 Test Item Value Reference Range Interpretation Comments UA Nitrite (test code Negative (11/22/2013 = UA Nitrite) 16:00:00 [facility]/[place]) [facility] [id number] 22:00:00 Test Item Value Reference Range Interpretation Comments UA WBC (test code = 1 See_Comment [Automa cruz message] The UA WBC) system which ge nerated this result transmit cruz reference range : <=5. The reference range was not used to interpr et this result as gee l/abnormal. [facility] AND [id number] 22:00:00 Test Item Value Reference Range Interpretation Comments UA Leuk Est (test Negative (11/22/2013 code = UA Leuk Est) 16:00:00 [facility]) [facility] [id number] 22:00:00 Test Item Value Reference Range Interpretation Comments UA RBC (test code = 1 See_Comment [Automa cruz message] The UA RBC) system which ge nerated this result transmit cruz reference range : <=2. The reference range was not used to interpr et this result as gee l/abnormal. [facility] [id number] 22:00:00 Test Item Value Reference Range Interpretation Comments UA Mucus (test code = UA Mucus) Few /LPF [facility] [id number] 22:00:00 Test Item Value Reference Range Interpretation Comments UA Bacteria (test code = UA Occasional /HPF Bacteria) [facility] [id number] 22:00:00 Test Item Value Reference Range Interpretation Comments UA Turbidity (test code = Clear (11/22/2013 UA Turbidity) 16:00:00 [place]) [facility] [id number] 22:00:00 Test Item Value Reference Range Interpretation Comments UA Color (test code = Light Yellow UA Color) *NA*(11/22/2013 16:00:00 [place]) [facility] [id number] 22:00:00 Test Item Value Reference Range Interpretation Comments UA Spec Grav (test code = UA Spec Grav) 1.009 [facility] [id number] 22:00:00 Test Item Value Reference Range Interpretation Comments UA Glucose (test code = UA Glucose) 70 mg/dL [facility] AND [id number] 22:00:00 Test Item Value Reference Range Interpretation Comments UA Protein (test code = UA >=300 mg/dL Protein) [facility] [id number] 22:00:00 Test Item Value Reference Range Interpretation Comments UA pH (test code = UA pH) 6.0 5.0-8.0 [facility] AND [id number] 22:00:00 Test Item Value Reference Range Interpretation Comments UA Ketones (test code = UA Negative mg/dL Ketones) [facility] [id number] 22:00:00 Test Item Value Reference Range Interpretation Comments U Amph Scr (test code Negative *NA*(11/22/2013 = U Amph Scr) 16:00:00 [place]) [facility] [id number] 22:00:00 Test Item Value Reference Range Interpretation Comments U Cocaine Scr (test Positive code = U Cocaine Scr) *ABN*(11/22/2013 16:00:00 [facility]/[place]) [facility] [id number] 22:00:00 Test Item Value Reference Range Interpretation Comments U Opiate Scr (test Negative code = U Opiate Scr) *NA*(11/22/2013 16:00:00 [facility]/[place]) [facility] [id number] 22:00:00 Test Item Value Reference Range Interpretation Comments U Cannab Scr (test Negative code = U Cannab Scr) *NA*(11/22/2013 16:00:00 [facility]/[place]) [facility] [id number] 22:00:00 Test Item Value Reference Range Interpretation Comments U Benzodia Scr (test Negative code = U Benzodia Scr) *NA*(11/22/2013 16:00:00 [facility]/[place]) [facility]DR[facility] [id number] 22:00:00 Test Item Value Reference Range Interpretation Comments U Romy Scr (test code Negative *NA*(11/22/2013 = U Romy Scr) 16:00:00 [facility]/[place]) [facility]annDR[facility] [id number] 22:00:00 Test Item Value Reference Range Interpretation Comments UDS Note (test code = See Note 8(11/22/2013 UDS Note) 16:00:00 [facility]) [facility]DR[facility] [id number] 22:00:00 Test Item Value Reference Range Interpretation Comments U Phencyc Scr (test Negative code = U Phencyc Scr) *NA*(11/22/2013 16:00:00 [facility]/[place]) [facility] [id number] 22:00:00 Test Item Value Reference Range Interpretation Comments UA Urobilinogen (test code = UA <=1.0 mg/dL 0.1-1.0 Urobilinogen) [facility] [id number] 22:00:00 Test Item Value Reference Range Interpretation Comments UA Sq Epi (test code = UA Sq Epi) None Seen [facility] [id number] 22:00:00 Test Item Value Reference Range Interpretation Comments UA Bili (test code = Negative *NA*(11/22/2013 UA Bili) 16:00:00 [facility]/[place]) [facility] [id number] 22:00:00 Test Item Value Reference Range Interpretation Comments UA Blood (test code = Small *ABN*(11/22/2013 UA Blood) 16:00:00 [facility]/[place]) [facility] [id number] 22:00:00 Test Item Value Reference Range Interpretation Comments UA Nitrite (test code Negative (11/22/2013 = UA Nitrite) 16:00:00 [place]) [facility] AND [id number] 22:00:00 Test Item Value Reference Range Interpretation Comments UA WBC (test code = 1 See_Comment [Automa cruz message] The UA WBC) system which ge nerated this result transmit cruz reference range : <=5. The reference range was not used to interpr et this result as gee l/abnormal. [facility] AND [id number] 22:00:00 Test Item Value Reference Range Interpretation Comments UA Leuk Est (test Negative (11/22/2013 code = UA Leuk Est) 16:00:00 [place]) [facility] AND [id number] 22:00:00 Test Item Value Reference Range Interpretation Comments UA RBC (test code = 1 See_Comment [Automa cruz message] The UA RBC) system which ge nerated this result transmit cruz reference range : <=2. The reference range was not used to interpr et this result as gee l/abnormal. [facility] AND [id number] 22:00:00 Test Item Value Reference Range Interpretation Comments UA Mucus (test code = UA Mucus) Few /LPF [facility] AND [id number] 22:00:00 Test Item Value Reference Range Interpretation Comments UA Bacteria (test code = UA Occasional /HPF Bacteria) [facility] AND [id number] 22:00:00 Test Item Value Reference Range Interpretation Comments UA Turbidity (test code = Clear (11/22/2013 UA Turbidity) 16:00:00 [place]) [facility] AND [id number] 22:00:00 Test Item Value Reference Range Interpretation Comments UA Color (test code = Light Yellow UA Color) *NA*(11/22/2013 16:00:00 [place]) [facility] AND [id number] 22:00:00 Test Item Value Reference Range Interpretation Comments UA Spec Grav (test code = UA Spec Grav) 1.009 [facility] AND [id number] 22:00:00 Test Item Value Reference Range Interpretation Comments UA Glucose (test code = UA Glucose) 70 mg/dL [facility] AND [id number] 22:00:00 Test Item Value Reference Range Interpretation Comments UA Protein (test code = UA >=300 mg/dL Protein) [facility] AND [id number] 22:00:00 Test Item Value Reference Range Interpretation Comments UA pH (test code = UA pH) 6.0 5.0-8.0 [facility] [id number] 22:00:00 Test Item Value Reference Range Interpretation Comments UA Ketones (test code = UA Negative mg/dL Ketones) [facility] [id number] 22:00:00 Test Item Value Reference Range Interpretation Comments U Amph Scr (test code Negative *NA*(11/22/2013 = U Amph Scr) 16:00:00 [place]/[place]) [facility] [id number] 22:00:00 Test Item Value Reference Range Interpretation Comments U Cocaine Scr (test Positive code = U Cocaine Scr) *ABN*(11/22/2013 16:00:00 [facility]/[place]) [facility] [id number] 22:00:00 Test Item Value Reference Range Interpretation Comments U Opiate Scr (test Negative code = U Opiate Scr) *NA*(11/22/2013 16:00:00 [facility]/[place]) [facility] [id number] 22:00:00 Test Item Value Reference Range Interpretation Comments U Cannab Scr (test Negative code = U Cannab Scr) *NA*(11/22/2013 16:00:00 [facility]/[place]) [facility] [id number] 22:00:00 Test Item Value Reference Range Interpretation Comments U Benzodia Scr (test Negative code = U Benzodia Scr) *NA*(11/22/2013 16:00:00 [facility]/[place]) [facility] [id number] 22:00:00 Test Item Value Reference Range Interpretation Comments U Romy Scr (test code Negative *NA*(11/22/2013 = U Romy Scr) 16:00:00 [facility]/[place]) [facility] [id number] 22:00:00 Test Item Value Reference Range Interpretation Comments UDS Note (test code = See Note 8(11/22/2013 UDS Note) 16:00:00 [place]) [facility] [id number] 22:00:00 Test Item Value Reference Range Interpretation Comments U Phencyc Scr (test Negative code = U Phencyc Scr) *NA*(11/22/2013 16:00:00 [facility]/[place]) [facility] [id number] 22:00:00 Test Item Value Reference Range Interpretation Comments UA Urobilinogen (test code = UA <=1.0 mg/dL 0.1-1.0 Urobilinogen) [facility] [id number] 22:00:00 Test Item Value Reference Range Interpretation Comments UA Sq Epi (test code = UA Sq Epi) None Seen [facility] [id number] 22:00:00 Test Item Value Reference Range Interpretation Comments UA Bili (test code = Negative *NA*(11/22/2013 UA Bili) 16:00:00 [facility]/[place]) [facility] [id number] 22:00:00 Test Item Value Reference Range Interpretation Comments UA Blood (test code = Small *ABN*(11/22/2013 UA Blood) 16:00:00 [facility]/[place]) [facility] [id number] 22:00:00 Test Item Value Reference Range Interpretation Comments UA Nitrite (test code Negative (11/22/2013 = UA Nitrite) 16:00:00 [place]/[place]) [facility] [id number] 22:00:00 Test Item Value Reference Range Interpretation Comments UA WBC (test code = 1 See_Comment [Automa cruz message] The UA WBC) system which ge nerated this result transmit cruz reference range : <=5. The reference range was not used to interpr et this result as gee l/abnormal. [facility] [id number] 22:00:00 Test Item Value Reference Range Interpretation Comments UA Leuk Est (test Negative (11/22/2013 code = UA Leuk Est) 16:00:00 [facility]/[place]) [facility] [id number] 22:00:00 Test Item Value Reference Range Interpretation Comments UA RBC (test code = 1 See_Comment [Automa cruz message] The UA RBC) system which ge nerated this result transmit cruz reference range : <=2. The reference range was not used to interpr et this result as gee l/abnormal. [facility] [id number] 22:00:00 Test Item Value Reference Range Interpretation Comments UA Mucus (test code = UA Mucus) Few /LPF [facility] AND [id number] 22:00:00 Test Item Value Reference Range Interpretation Comments UA Bacteria (test code = UA Occasional /HPF Bacteria) [facility] AND [id number] 22:00:00 Test Item Value Reference Range Interpretation Comments UA Turbidity (test code = Clear (11/22/2013 UA Turbidity) 16:00:00 [place]) [facility] AND [id number] 22:00:00 Test Item Value Reference Range Interpretation Comments UA Color (test code = Light Yellow UA Color) *NA*(11/22/2013 16:00:00 [place]) [facility] AND [id number] 22:00:00 Test Item Value Reference Range Interpretation Comments UA Spec Grav (test code = UA Spec Grav) 1.009 [facility] AND [id number] 22:00:00 Test Item Value Reference Range Interpretation Comments UA Glucose (test code = UA Glucose) 70 mg/dL [facility] AND [id number] 22:00:00 Test Item Value Reference Range Interpretation Comments UA Protein (test code = UA >=300 mg/dL Protein) [facility] AND [id number] 22:00:00 Test Item Value Reference Range Interpretation Comments UA pH (test code = UA pH) 6.0 5.0-8.0 [facility] AND [id number] 22:00:00 Test Item Value Reference Range Interpretation Comments UA Ketones (test code = UA Negative mg/dL Ketones) [facility] [id number] 18:46:00 Test Item Value Reference Range Interpretation Comments Total CK (test code = Total CK) 85 12-[address] [facility] [facility] [id number] 18:46:00 Test Item Value Reference Range Interpretation Comments CK MB (test code = CK MB) no gt 0.5-3.6 [facility] [id number] 18:46:00 Test Item Value Reference Range Interpretation Comments Troponin-I (test code no gt See_Comment [Auto mated message] The = Troponin-I) system which g enerated this result transmit cruz reference range : <=0.40. The reference r jillian was not used to interpr et this result as gee l/abnormal. [facility] [id number] 18:46:00 Test Item Value Reference Range Interpretation Comments CK-MB INDEX (test no gt See_Comment [Automate d message] The code = CK-MB INDEX) system w [facility] generated this result transmit cruz reference range : <=2.5. The reference range was not used to interpr et this result as gee l/abnormal. [facility] CenterOzqfhpcIKKKKLZFZV4147-49-14 18:46:00 Test Item Value Reference Range Interpretation Comments PROTIME (test code = PROTIME) 12.9 s 12.0-14.7 [facility] CenterClyajoiUCWNRQLPVJ5026-65-40 18:46:00 Test Item Value Reference Range Interpretation Comments INR (test code = INR) 0.98 0.85-1.17 [facility] CenterXyjrkljCVJDMCTVJL6783-45-04 18:46:00 Test Item Value Reference Range Interpretation Comments aPTT (test code = aPTT) 28.6 s 22.9-35.8 [facility] CenterUxvhrcpLGFRDEAOQY0928-64-64 18:46:00 Test Item Value Reference Range Interpretation Comments Eosinophils # (test code 0.1 See_Comment [A utomated message] The = Eosinophils #) system [facility] generated this result tra nsmitted reference range : <=0.5. The reference r jillian was not used to int erpret this result as normal/abnormal . [facility] CenterWqquwebWOYGBLZDVE9493-97-37 18:46:00 Test Item Value Reference Range Interpretation Comments Monocytes # (test code 0.7 See_Comment [Aut omated message] The = Monocytes #) system which generated this result tra nsmitted reference range : <=0.8. The reference r jillian was not used to int erpret this result as normal/abnormal . [facility] CenterDxkyddlKVITUVIQPZ6756-62-38 18:46:00 Test Item Value Reference Range Interpretation Comments Eosinophils (test code = 1.3 See_Comment [A utomated message] The Eosinophils) system which ge nerated this result tra nsmitted reference range : <=4.0. The reference r jillian was not used to int erpret this result as normal/abnormal . [facility] CenterXgylydzTALZDVSKYV2639-76-84 18:46:00 Test Item Value Reference Range Interpretation Comments Monocytes (test code = Monocytes) 7.6 2.0-12.0 [facility]VmmvcdkSTTDNBKTQX5160-37-60 18:46:00 Test Item Value Reference Range Interpretation Comments Lymphocytes (test code = Lymphocytes) 25.0 20.0-40.0 [facility]TlyndraJKMTNZDQZT5823-10-86 18:46:00 Test Item Value Reference Range Interpretation Comments Basophils (test code = 0.4 See_Comment [Aut omated message] The Basophils) system which ge nerated this result tra nsmitted reference range : <=1.0. The reference r jillian was not used to int erpret this result as normal/abnormal . [facility] HospitalDxagloaLJWEBTJLRD5652-93-76 18:46:00 Test Item Value Reference Range Interpretation Comments Lymphocytes # (test code = Lymphocytes 2.3 1.0-5.5 #) [facility] CenterRyckuynPLLGTPFMCA0615-88-60 18:46:00 Test Item Value Reference Range Interpretation Comments Segs-Bands # (test code = Segs-Bands #) 6.2 1.5-8.1 [facility] HospitalQrywhwvALSRITCUPF5764-70-89 18:46:00 Test Item Value Reference Range Interpretation Comments Segs (test code = Segs) 65.7 45.0-75.[address] [facility] [address] [facility] HospitalConcert Pharmaceuticals OZPLJSE5567-86-71 18:46:00 Test Item Value Reference Range Interpretation Comments Total CK (test code = Total CK) 85 12-191 [facility] BHURWHG8785-67-27 18:46:00 Test Item Value Reference Range Interpretation Comments CK MB (test code = CK MB) no gt 0.5-3.6 [facility] OVBITEC1397-78-82 18:46:00 Test Item Value Reference Range Interpretation Comments Troponin-I (test code no gt See_Comment [Auto mated message] The = Troponin-I) system which g enerated this result transmit cruz reference range : <=0.40. The reference r jillian was not used to interpr et this result as gee l/abnormal. [facility] HospitalCARCasabu ZVZGSFW1438-95-41 18:46:00 Test Item Value Reference Range Interpretation Comments CK-MB INDEX (test no gt See_Comment [Automate d message] The code = CK-MB INDEX) system w [facility] generated this result transmit cruz reference range : <=2.5. The reference range was not used to interpr et this result as gee l/abnormal. [facility] CenterXplfiomZRIUQMUELN1347-54-87 18:46:00 Test Item Value Reference Range Interpretation Comments PROTIME (test code = PROTIME) 12.9 s 12.0-14.7 [facility] CenterIskazzdNEHNYZPRYL8220-85-44 18:46:00 Test Item Value Reference Range Interpretation Comments INR (test code = INR) 0.98 0.85-1.17 [facility] CenterHvvaldbOBWLOYNZSN7656-37-41 18:46:00 Test Item Value Reference Range Interpretation Comments aPTT (test code = aPTT) 28.6 s 22.9-35.8 [facility] CenterKdllbbeRXTVWPRDET2562-48-29 18:46:00 Test Item Value Reference Range Interpretation Comments Eosinophils # (test code 0.1 See_Comment [A utomated message] The = Eosinophils #) system whic h generated this result tra nsmitted reference range : <=0.5. The reference r jillian was not used to int erpret this result as normal/abnormal . [facility] CenterJwgsqhmJYPETKXAQP2897-50-74 18:46:00 Test Item Value Reference Range Interpretation Comments Monocytes # (test code 0.7 See_Comment [Aut omated message] The = Monocytes #) system which generated this result tra nsmitted reference range : <=0.8. The reference r jillian was not used to int erpret this result as normal/abnormal . [facility] CenterRgjyzazHDXHEMIXDN1608-60-79 18:46:00 Test Item Value Reference Range Interpretation Comments Eosinophils (test code = 1.3 See_Comment [A utomated message] The Eosinophils) system which ge nerated this result tra nsmitted reference range : <=4.0. The reference r jillian was not used to int erpret this result as normal/abnormal . [facility] CenterKpggxcyWSOCHIKOBJ8918-27-57 18:46:00 Test Item Value Reference Range Interpretation Comments Monocytes (test code = Monocytes) 7.6 2.0-12.0 [facility] CenterAsehxwzPBTYKCCSQQ2871-21-32 18:46:00 Test Item Value Reference Range Interpretation Comments Lymphocytes (test code = Lymphocytes) 25.0 20.0-40.0 [facility] CenterFqxqdujDOPVNCNSNG9414-79-77 18:46:00 Test Item Value Reference Range Interpretation Comments Basophils (test code = 0.4 See_Comment [Aut omated message] The Basophils) system which ge nerated this result tra nsmitted reference range : <=1.0. The reference r jillian was not used to int erpret this result as normal/abnormal . [facility] HospitalWgtaiqqJGADITCRBU7739-33-62 18:46:00 Test Item Value Reference Range Interpretation Comments Lymphocytes # (test code = Lymphocytes 2.3 1.0-5.5 #) [facility] HospitalZdnjhscRZKQMUIAFL6027-88-71 18:46:00 Test Item Value Reference Range Interpretation Comments Segs-Bands # (test code = Segs-Bands #) 6.2 1.5-8.1 [facility]TohgzceJOSMNDIVJC7937-89-02 18:46:00 Test Item Value Reference Range Interpretation Comments Segs (test code = Segs) 65.7 45.0-75.[address] [facility] [address] [facility] HospitalFantasySalesTeam ZHMYIYJ0129-98-95 18:46:00 Test Item Value Reference Range Interpretation Comments Total CK (test code = Total CK) 85 12-[address] [facility] HospitalKaptaNFPBAOX2130-12-22 18:46:00 Test Item Value Reference Range Interpretation Comments CK MB (test code = CK MB) no gt 0.5-3.6 [facility] HospitalMarine & Auto Security SolutionsNPLDHZM6018-02-46 18:46:00 Test Item Value Reference Range Interpretation Comments Troponin-I (test code no gt See_Comment [Auto mated message] The = Troponin-I) system which g enerated this result transmit cruz reference range : <=0.40. The reference r jillian was not used to interpr et this result as gee l/abnormal. [facility] HospitalKaptaSJHUICA3313-45-72 18:46:00 Test Item Value Reference Range Interpretation Comments CK-MB INDEX (test no gt See_Comment [Automate d message] The code = CK-MB INDEX) [facility] result transmit cruz reference range : <=2.5. The reference range was not used to interpr et this result as gee l/abnormal. [facility] HospitalJhnqrvcXFBMJPACRA2467-78-87 18:46:00 Test Item Value Reference Range Interpretation Comments PROTIME (test code = PROTIME) 12.9 s 12.0-14.[address] [facility] [address] HospitalRxwdiceUHCEASNXSJ8937-22-85 18:46:00 Test Item Value Reference Range Interpretation Comments INR (test code = INR) 0.98 0.85-1.17 [facility] CenterFqhmyloWFYNKMUFFW6816-11-27 18:46:00 Test Item Value Reference Range Interpretation Comments aPTT (test code = aPTT) 28.6 s 22.9-35.8 [facility] CenterZltwdgiSVGWHOSYJE0715-05-64 18:46:00 Test Item Value Reference Range Interpretation Comments Eosinophils # (test code 0.1 See_Comment [A utomated message] The = Eosinophils #) system wh h generated this result tra nsmitted reference range : <=0.5. The reference r jillian was not used to int erpret this result as normal/abnormal . [facility] CenterItnqqiaXAKJKZIOQJ9457-43-89 18:46:00 Test Item Value Reference Range Interpretation Comments Monocytes # (test code 0.7 See_Comment [Aut omated message] The = Monocytes #) system which generated this result tra nsmitted reference range : <=0.8. The reference r jillian was not used to int erpret this result as normal/abnormal . [facility] CenterQfhtmtaOCNILYVVYB4657-24-36 18:46:00 Test Item Value Reference Range Interpretation Comments Eosinophils (test code = 1.3 See_Comment [A utomated message] The Eosinophils) system which ge nerated this result tra nsmitted reference range : <=4.0. The reference r jillian was not used to int erpret this result as normal/abnormal . [facility] CenterUaizirsTZZONMTUBV6951-27-29 18:46:00 Test Item Value Reference Range Interpretation Comments Monocytes (test code = Monocytes) 7.6 2.0-12.0 [facility] CenterMpwciiwBBFRVOPHPI8954-63-65 18:46:00 Test Item Value Reference Range Interpretation Comments Lymphocytes (test code = Lymphocytes) 25.0 20.0-40.0 [facility] CenterOrtxjgfVWNEXCKVFL3139-40-36 18:46:00 Test Item Value Reference Range Interpretation Comments Basophils (test code = 0.4 See_Comment [Aut omated message] The Basophils) system which ge nerated this result tra nsmitted reference range : <=1.0. The reference r jillian was not used to int erpret this result as normal/abnormal . [facility] CenterYhqyxpeLYLSKQZQTU2519-05-06 18:46:00 Test Item Value Reference Range Interpretation Comments Lymphocytes # (test code = Lymphocytes 2.3 1.0-5.5 #) [facility] CenterGamnnsvQREFTALFJV6382-09-47 18:46:00 Test Item Value Reference Range Interpretation Comments Segs-Bands # (test code = Segs-Bands #) 6.2 1.5-8.1 [facility] CenterCesipnxJIGDEVUHGQ6997-21-77 18:46:00 Test Item Value Reference Range Interpretation Comments Segs (test code = Segs) 65.7 45.0-75.0 [facility] PSQOXOB3800-86-23 18:46:00 Test Item Value Reference Range Interpretation Comments Total CK (test code = Total CK) 85 12-191 [facility] YEMSYXH0876-40-73 18:46:00 Test Item Value Reference Range Interpretation Comments CK MB (test code = CK MB) no gt 0.5-3.6 [facility] DTFIWES9366-38-13 18:46:00 Test Item Value Reference Range Interpretation Comments Troponin-I (test code no gt See_Comment [Auto mated message] The = Troponin-I) system which g enerated this result transmit cruz reference range : <=0.40. The reference r jillian was not used to interpr et this result as gee l/abnormal. [facility] PYGEJKV1471-05-26 18:46:00 Test Item Value Reference Range Interpretation Comments CK-MB INDEX (test no gt See_Comment [Automate d message] The code = CK-MB INDEX) system w [facility] generated this result transmit cruz reference range : <=2.5. The reference range was not used to interpr et this result as gee l/abnormal. [facility] CenterYlibuddOJMQHXAWHK6227-29-46 18:46:00 Test Item Value Reference Range Interpretation Comments PROTIME (test code = PROTIME) 12.9 s 12.0-14.7 [facility] CenterJzwgnjtVYVEPAPSBO7601-84-55 18:46:00 Test Item Value Reference Range Interpretation Comments INR (test code = INR) 0.98 0.85-1.17 [facility] CenterTicqmqyFMJSONQWJQ0962-34-41 18:46:00 Test Item Value Reference Range Interpretation Comments aPTT (test code = aPTT) 28.6 s 22.9-35.8 [facility] CenterCxybqnpZUOQJYJWLW7315-06-16 18:46:00 Test Item Value Reference Range Interpretation Comments Eosinophils # (test code 0.1 See_Comment [A utomated message] The = Eosinophils #) system ic h generated this result tra nsmitted reference range : <=0.5. The reference r jillian was not used to int erpret this result as normal/abnormal . [facility] CenterWvbzgknLMZLHPKVST5373-03-43 18:46:00 Test Item Value Reference Range Interpretation Comments Monocytes # (test code 0.7 See_Comment [Aut omated message] The = Monocytes #) system which generated this result tra nsmitted reference range : <=0.8. The reference r jillian was not used to int erpret this result as normal/abnormal . [facility] CenterCkyazwcWYTEOGAJHN7364-40-96 18:46:00 Test Item Value Reference Range Interpretation Comments Eosinophils (test code = 1.3 See_Comment [A utomated message] The Eosinophils) system which ge nerated this result tra nsmitted reference range : <=4.0. The reference r jillian was not used to int erpret this result as normal/abnormal . [facility] CenterGzwyfmtAAEEMCLMEF2794-48-64 18:46:00 Test Item Value Reference Range Interpretation Comments Monocytes (test code = Monocytes) 7.6 2.0-12.0 [facility] CenterRohdckwNCSPPWQLOS6450-12-66 18:46:00 Test Item Value Reference Range Interpretation Comments Lymphocytes (test code = Lymphocytes) 25.0 20.0-40.0 [facility] CenterDdijrcbOQJGQEVMUR2122-93-51 18:46:00 Test Item Value Reference Range Interpretation Comments Basophils (test code = 0.4 See_Comment [Aut omated message] The Basophils) system which ge nerated this result tra nsmitted reference range : <=1.0. The reference r jillian was not used to int erpret this result as normal/abnormal . [facility] CenterHljvzmuYVXSWAOBAV0710-06-78 18:46:00 Test Item Value Reference Range Interpretation Comments Lymphocytes # (test code = Lymphocytes 2.3 1.0-5.5 #) [facility] CenterHknasrjXJVEVZPKIZ4530-89-96 18:46:00 Test Item Value Reference Range Interpretation Comments Segs-Bands # (test code = Segs-Bands #) 6.2 1.5-8.1 [facility] CenterHucavjzVMTKZHSTIK2700-74-68 18:46:00 Test Item Value Reference Range Interpretation Comments Segs (test code = Segs) 65.7 45.0-75.0 [facility]ennialXbkrdijECWBXKDUZ6316-29-69 12:00:00 Test Item Value Reference Range Interpretation Comments Calcium Lvl (test code = Calcium Lvl) 7.7 8.5-10.5 L [facility] CentennialLkpmcnpGCQRIQSNP5266-68-94 12:00:00 Test Item Value Reference Range Interpretation Comments Potassium Lvl (test code = Potassium 4.0 3.5-5.1 N Lvl) [facility] CentennialMmluhmeMBCZBEZBB0668-19-13 12:00:00 Test Item Value Reference Range Interpretation Comments Sodium Lvl (test code = Sodium Lvl) 140 135-145 N [facility] CentennialUxbjuqdTSRYTYLQR2815-53-66 12:00:00 Test Item Value Reference Range Interpretation Comments CO2 (test code = CO2) 23 24-32 L [facility] CentennialMcrdugzTTOAZRAAD6698-67-64 12:00:00 Test Item Value Reference Range Interpretation Comments Chloride Lvl (test code = Chloride Lvl) 102 95-109 N [facility] CentennialTevwsugXFSZYLUIQ5603-79-90 12:00:00 Test Item Value Reference Range Interpretation Comments AGAP (test code = AGAP) 19.0 10.0-20.0 N [facility] CentennialFejyfobBXTOMNRDS8379-63-22 12:00:00 Test Item Value Reference Range Interpretation Comments Glucose Lvl (test code = Glucose Lvl) 124 70-99 H [facility] CentennialHjrmkqrOLUXSAZSA6255-32-61 12:00:00 Test Item Value Reference Range Interpretation Comments BUN (test code = BUN) 25 7-22 H [facility] CentennialLfznvrmNQNNJFSJD4902-68-51 12:00:00 Test Item Value Reference Range Interpretation Comments Creatinine Lvl (test code = Creatinine 2.2 0.5-1.4 H Lvl) [facility] CentennialAlxywheRXQPWZMAH9068-27-96 12:00:00 Test Item Value Reference Range Interpretation Comments Calcium Lvl (test code = Calcium Lvl) 7.7 8.5-10.5 L [facility] CentennialOqsntlgCYVIDKNCQ3034-09-88 12:00:00 Test Item Value Reference Range Interpretation Comments Potassium Lvl (test code = Potassium 4.0 3.5-5.1 N Lvl) [facility] CentennialKqyluwgOFWKZQTTF2955-55-03 12:00:00 Test Item Value Reference Range Interpretation Comments Sodium Lvl (test code = Sodium Lvl) 140 135-145 N [facility] CentennialZroiygkILQPNRPEJ8445-81-21 12:00:00 Test Item Value Reference Range Interpretation Comments CO2 (test code = CO2) 23 24-32 L [facility] CentennialTjohiuvVALHCOMBT9590-59-91 12:00:00 Test Item Value Reference Range Interpretation Comments Chloride Lvl (test code = Chloride Lvl) 102 95-109 N [facility] CentennialSaokkcqKVIDGKEPD9225-05-69 12:00:00 Test Item Value Reference Range Interpretation Comments AGAP (test code = AGAP) 19.0 10.0-20.0 N [facility] CentennialUvixarqIAIDDTFAH0606-69-75 12:00:00 Test Item Value Reference Range Interpretation Comments Glucose Lvl (test code = Glucose Lvl) 124 70-99 H [facility] CentennialVjgkihmGUGAKGGKT2909-88-15 12:00:00 Test Item Value Reference Range Interpretation Comments BUN (test code = BUN) 25 7-22 H [facility] CentennialFspwwjtDZICFHRZK5414-38-96 12:00:00 Test Item Value Reference Range Interpretation Comments Creatinine Lvl (test code = Creatinine 2.2 0.5-1.4 H Lvl) [facility] CentennialJnisjitLOQAZZFVD9690-23-65 12:00:00 Test Item Value Reference Range Interpretation Comments Calcium Lvl (test code = Calcium Lvl) 7.7 8.5-10.5 L [facility] CentennialLnflitbJBMOMPNMC3500-80-56 12:00:00 Test Item Value Reference Range Interpretation Comments Potassium Lvl (test code = Potassium 4.0 3.5-5.1 N Lvl) [facility] CentennialNrhcjjzBLBTFRAKI4201-32-02 12:00:00 Test Item Value Reference Range Interpretation Comments Sodium Lvl (test code = Sodium Lvl) 140 135-145 N [facility] CentennialSadeatzGGUBAIXJH0209-56-44 12:00:00 Test Item Value Reference Range Interpretation Comments CO2 (test code = CO2) 23 24-32 L [facility] CentennialPrkbiesRRFLUTOKE7565-49-22 12:00:00 Test Item Value Reference Range Interpretation Comments Chloride Lvl (test code = Chloride Lvl) 102 95-109 N [facility] CentennialFslwjxvMQREYUVQL7558-81-42 12:00:00 Test Item Value Reference Range Interpretation Comments AGAP (test code = AGAP) 19.0 10.0-20.0 N [facility] CentennialCcemqwcGXYJEJXYR8629-31-31 12:00:00 Test Item Value Reference Range Interpretation Comments Glucose Lvl (test code = Glucose Lvl) 124 70-99 H [facility] CentennialTewensfSXAIJDMUY5698-20-01 12:00:00 Test Item Value Reference Range Interpretation Comments BUN (test code = BUN) 25 7-22 H [facility] CentennialUltwzgdEQUPTBVSH3259-96-94 12:00:00 Test Item Value Reference Range Interpretation Comments Creatinine Lvl (test code = Creatinine 2.2 0.5-1.4 H Lvl) [facility] CentennialSovnzqhUNKZLVBMZ0902-66-34 12:00:00 Test Item Value Reference Range Interpretation Comments Calcium Lvl (test code = Calcium Lvl) 7.7 8.5-10.5 L [facility] CentennialYsxzzamQLBMGOJUP1230-91-86 12:00:00 Test Item Value Reference Range Interpretation Comments Potassium Lvl (test code = Potassium 4.0 3.5-5.1 N Lvl) [facility] CentennialFciogftKVACHOSXQ5992-24-27 12:00:00 Test Item Value Reference Range Interpretation Comments Sodium Lvl (test code = Sodium Lvl) 140 135-145 N [facility] CentennialEoqffdsGHDRFGBYP1307-70-78 12:00:00 Test Item Value Reference Range Interpretation Comments CO2 (test code = CO2) 23 24-32 L [facility] CentennialMbzuljeNWUSLJMHT2552-20-04 12:00:00 Test Item Value Reference Range Interpretation Comments Chloride Lvl (test code = Chloride Lvl) 102 95-109 N [facility] CentennialKdxhpkkCZKVDTNTK4034-13-64 12:00:00 Test Item Value Reference Range Interpretation Comments AGAP (test code = AGAP) 19.0 10.0-20.0 N [facility] CentennialJalfytfNXPGMTUMU4396-17-64 12:00:00 Test Item Value Reference Range Interpretation Comments Glucose Lvl (test code = Glucose Lvl) 124 70-99 H [facility] CentennialEzdxovpNMNKSZYQS1767-01-59 12:00:00 Test Item Value Reference Range Interpretation Comments BUN (test code = BUN) 25 7-22 H [facility] CentennialVidwbdkAFAMTSZUX3113-97-26 12:00:00 Test Item Value Reference Range Interpretation Comments Creatinine Lvl (test code = Creatinine 2.2 0.5-1.4 H Lvl) [facility] CentennialDruuwsnLFGKWJXUF2980-53-94 22:17:00 Test Item Value Reference Range Interpretation Comments Calcium Lvl (test code = Calcium Lvl) 7.9 8.5-10.5 L [facility] CentennialOydbbowHIKRRXTPV1169-46-09 22:17:00 Test Item Value Reference Range Interpretation Comments AGAP (test code = AGAP) 18.5 10.0-20.0 N [facility] CentennialBjzchamNGDHYODHS5836-11-90 22:17:00 Test Item Value Reference Range Interpretation Comments CO2 (test code = CO2) 21 24-32 L [facility] CentennialOzphwsqXTGJRXTNO7091-40-08 22:17:00 Test Item Value Reference Range Interpretation Comments Glucose Lvl (test code = Glucose Lvl) 77 70-99 N [facility] CentennialYnqqkdqAALGUVAYM7091-84-17 22:17:00 Test Item Value Reference Range Interpretation Comments BUN (test code = BUN) 24 7-22 H [facility] CentennialUbfwwjiCFQUSCDYU3913-82-12 22:17:00 Test Item Value Reference Range Interpretation Comments Creatinine Lvl (test code = Creatinine 1.8 0.5-1.4 H Lvl) [facility] CentennialNpiuzkvFRICSQJMC1500-49-44 22:17:00 Test Item Value Reference Range Interpretation Comments Sodium Lvl (test code = Sodium Lvl) 140 135-145 N [facility] CentennialAjxcsdlJESKKJBAH9264-54-71 22:17:00 Test Item Value Reference Range Interpretation Comments Potassium Lvl (test code = Potassium 4.5 3.5-5.1 N Lvl) [facility] CentennialBwarpueXJFFHVVBB6186-09-89 22:17:00 Test Item Value Reference Range Interpretation Comments Chloride Lvl (test code = Chloride Lvl) 105 95-109 N [facility] CentennialPghmwfhDRSJCHKRK9668-32-52 22:17:00 Test Item Value Reference Range Interpretation Comments Calcium Lvl (test code = Calcium Lvl) 7.9 8.5-10.5 L [facility] CentennialZmhuxmvGIPIOXBVZ4351-93-81 22:17:00 Test Item Value Reference Range Interpretation Comments AGAP (test code = AGAP) 18.5 10.0-20.0 N [facility] CentennialIjeghbrCAIADSRDA6345-49-85 22:17:00 Test Item Value Reference Range Interpretation Comments CO2 (test code = CO2) 21 24-32 L [facility] CentennialUjcynbyWABLRUIJW6820-75-98 22:17:00 Test Item Value Reference Range Interpretation Comments Glucose Lvl (test code = Glucose Lvl) 77 70-99 N [facility] CentennialHaowwwyHKISTQYBR9581-83-31 22:17:00 Test Item Value Reference Range Interpretation Comments BUN (test code = BUN) 24 7-22 H [facility] CentennialCcxlxsfTKOZYDAIJ9383-82-90 22:17:00 Test Item Value Reference Range Interpretation Comments Creatinine Lvl (test code = Creatinine 1.8 0.5-1.4 H Lvl) [facility] CentennialRxfckinZDRBIAZBH7503-69-08 22:17:00 Test Item Value Reference Range Interpretation Comments Sodium Lvl (test code = Sodium Lvl) 140 135-145 N [facility]ennialKpasctfKVRQXWLQP8743-89-04 22:17:00 Test Item Value Reference Range Interpretation Comments Potassium Lvl (test code = Potassium 4.5 3.5-5.1 N Lvl) [facility]ennialWzlnkveBGFGRZXOK0970-39-37 22:17:00 Test Item Value Reference Range Interpretation Comments Chloride Lvl (test code = Chloride Lvl) 105 95-109 N [facility] CentennialJuhorwpJSHFUWIEA7375-43-37 22:17:00 Test Item Value Reference Range Interpretation Comments Calcium Lvl (test code = Calcium Lvl) 7.9 8.5-10.5 L [facility]ennialMohdkeiXEJBLURNZ3007-04-32 22:17:00 Test Item Value Reference Range Interpretation Comments AGAP (test code = AGAP) 18.5 10.0-20.0 N [facility]ennialYfdnfllVSCUSJMYW3088-61-43 22:17:00 Test Item Value Reference Range Interpretation Comments CO2 (test code = CO2) 21 24-32 L [facility] CentennialUtcuralPIVXAGPBE0066-51-27 22:17:00 Test Item Value Reference Range Interpretation Comments Glucose Lvl (test code = Glucose Lvl) 77 70-99 N [facility] CentennialSgmklixHSLTJPEFK3291-02-96 22:17:00 Test Item Value Reference Range Interpretation Comments BUN (test code = BUN) 24 7-22 H [facility] CentennialZbhufttTHAFLSMWF8460-17-62 22:17:00 Test Item Value Reference Range Interpretation Comments Creatinine Lvl (test code = Creatinine 1.8 0.5-1.4 H Lvl) [facility]ennialMfctjmbSWYMOQQPG5906-72-08 22:17:00 Test Item Value Reference Range Interpretation Comments Sodium Lvl (test code = Sodium Lvl) 140 135-145 N [facility]ennialFktxgblFPRTIQRDK5463-54-69 22:17:00 Test Item Value Reference Range Interpretation Comments Potassium Lvl (test code = Potassium 4.5 3.5-5.1 N Lvl) [facility]ennialKqfbgdkTETNNDFRJ9990-19-59 22:17:00 Test Item Value Reference Range Interpretation Comments Chloride Lvl (test code = Chloride Lvl) 105 95-109 N [facility]ennialFsrjvnoSTUCSAOFU5639-85-61 22:17:00 Test Item Value Reference Range Interpretation Comments Calcium Lvl (test code = Calcium Lvl) 7.9 8.5-10.5 L [facility]ennialOrkydqmISVFWQWWG8948-56-32 22:17:00 Test Item Value Reference Range Interpretation Comments AGAP (test code = AGAP) 18.5 10.0-20.0 N [facility] CentennialHiejapoYEETKQJDI6821-92-96 22:17:00 Test Item Value Reference Range Interpretation Comments CO2 (test code = CO2) 21 24-32 L [facility]ennialNfdqxqzQYDPIUIZU4962-07-89 22:17:00 Test Item Value Reference Range Interpretation Comments Glucose Lvl (test code = Glucose Lvl) 77 70-99 N [facility] CentennialLzaotgwZHHRGVFFE3994-24-41 22:17:00 Test Item Value Reference Range Interpretation Comments BUN (test code = BUN) 24 7-22 H [facility] CentennialXakdzlrHSUGUPIYX4124-64-83 22:17:00 Test Item Value Reference Range Interpretation Comments Creatinine Lvl (test code = Creatinine 1.8 0.5-1.4 H Lvl) [facility]ennialUxzlmacXCYKNIQVI9797-54-07 22:17:00 Test Item Value Reference Range Interpretation Comments Sodium Lvl (test code = Sodium Lvl) 140 135-145 N [facility] CentennialBewbeyiOKPRQPEBM2221-86-84 22:17:00 Test Item Value Reference Range Interpretation Comments Potassium Lvl (test code = Potassium 4.5 3.5-5.1 N Lvl) [facility]ennialSbchrcwLCLMSHGDO7160-25-96 22:17:00 Test Item Value Reference Range Interpretation Comments Chloride Lvl (test code = Chloride Lvl) 105 95-109 N [facility]ennialUzhuccjHLIYHNFYE0575-77-40 19:20:00 Test Item Value Reference Range Interpretation Comments Creatinine Lvl (test code = Creatinine 1.8 0.5-1.4 H Lvl) [facility] CentennialUiqyffeWGPVMLDEX9646-15-53 19:20:00 Test Item Value Reference Range Interpretation Comments Potassium Lvl (test code = Potassium 4.0 3.5-5.1 N Lvl) [facility] CentennialDwdotvnLTIHNVQYL5312-63-57 19:20:00 Test Item Value Reference Range Interpretation Comments Sodium Lvl (test code = Sodium Lvl) 137 135-145 N [facility]ennialPgpsldgXCWMQKUJX4179-00-84 19:20:00 Test Item Value Reference Range Interpretation Comments BUN (test code = BUN) 25 7-22 H [facility] CentennialNvxjlybFNRNECGJO3882-34-53 19:20:00 Test Item Value Reference Range Interpretation Comments Calcium Lvl (test code = Calcium Lvl) 8.7 8.5-10.5 N [facility] CentennialLbvxmjfRRLHVOUAV4133-68-18 19:20:00 Test Item Value Reference Range Interpretation Comments CO2 (test code = CO2) 21 24-32 L [facility] CentennialNukhlwuIKFXNQVGI7726-08-96 19:20:00 Test Item Value Reference Range Interpretation Comments Chloride Lvl (test code = Chloride Lvl) 104 95-109 N [facility]ennialCqqylflMETIJZSKR6981-07-91 19:20:00 Test Item Value Reference Range Interpretation Comments AGAP (test code = AGAP) 16.0 10.0-20.0 N [facility]ennialBaxftblLPIBJOTTV3568-34-59 19:20:00 Test Item Value Reference Range Interpretation Comments Glucose Lvl (test code = Glucose Lvl) 86 70-99 N [facility] CentennialDcuclqiZVQEIGGAK7075-50-97 19:20:00 Test Item Value Reference Range Interpretation Comments Creatinine Lvl (test code = Creatinine 1.8 0.5-1.4 H Lvl) [facility] CentennialRnejzwgJQCCGJJXP1410-06-24 19:20:00 Test Item Value Reference Range Interpretation Comments Potassium Lvl (test code = Potassium 4.0 3.5-5.1 N Lvl) [facility]ennialZcwgaagZVODEPQPL8978-39-72 19:20:00 Test Item Value Reference Range Interpretation Comments Sodium Lvl (test code = Sodium Lvl) 137 135-145 N [facility]ennialXpilnsgLBFPKIJYG4886-94-33 19:20:00 Test Item Value Reference Range Interpretation Comments BUN (test code = BUN) 25 7-22 H [facility] CentennialLicfqhgLOQBLKAIZ9721-11-58 19:20:00 Test Item Value Reference Range Interpretation Comments Calcium Lvl (test code = Calcium Lvl) 8.7 8.5-10.5 N [facility]ennialUkoxvspGWSFEBBJZ8476-51-54 19:20:00 Test Item Value Reference Range Interpretation Comments CO2 (test code = CO2) 21 24-32 L [facility]ennialHwkncfkVRVWEWSGX9932-49-47 19:20:00 Test Item Value Reference Range Interpretation Comments Chloride Lvl (test code = Chloride Lvl) 104 95-109 N [facility] CentennialRyrnulcUWCTCCIUA4361-28-62 19:20:00 Test Item Value Reference Range Interpretation Comments AGAP (test code = AGAP) 16.0 10.0-20.0 N [facility]ennialKjfqvkxQRHBEIRGJ3001-22-93 19:20:00 Test Item Value Reference Range Interpretation Comments Glucose Lvl (test code = Glucose Lvl) 86 70-99 N [facility]ennialQhwjplnPBZBMWSCW8177-11-78 19:20:00 Test Item Value Reference Range Interpretation Comments Creatinine Lvl (test code = Creatinine 1.8 0.5-1.4 H Lvl) [facility]ennialKlrcyfqFXHSOJVHY4346-99-04 19:20:00 Test Item Value Reference Range Interpretation Comments Potassium Lvl (test code = Potassium 4.0 3.5-5.1 N Lvl) [facility]ennialUdvsirfGZKWZXFRR1587-70-69 19:20:00 Test Item Value Reference Range Interpretation Comments Sodium Lvl (test code = Sodium Lvl) 137 135-145 N [facility]ennialKypgyohPWBXQAQCN4361-32-62 19:20:00 Test Item Value Reference Range Interpretation Comments BUN (test code = BUN) 25 7-22 H [facility]ennialCckbpxjZJXJMRAUS1305-27-78 19:20:00 Test Item Value Reference Range Interpretation Comments Calcium Lvl (test code = Calcium Lvl) 8.7 8.5-10.5 N [facility]ennialQtyblxjRTKIWSKHR5788-75-19 19:20:00 Test Item Value Reference Range Interpretation Comments CO2 (test code = CO2) 21 24-32 L [facility] CentennialUlyisfnMHAXYQNQJ5629-29-52 19:20:00 Test Item Value Reference Range Interpretation Comments Chloride Lvl (test code = Chloride Lvl) 104 95-109 N [facility]ennialQxjdcwvVJZXFZWMG5452-74-16 19:20:00 Test Item Value Reference Range Interpretation Comments AGAP (test code = AGAP) 16.0 10.0-20.0 N [facility] CentennialRojvozdTXYBTPMDI5382-95-48 19:20:00 Test Item Value Reference Range Interpretation Comments Glucose Lvl (test code = Glucose Lvl) 86 70-99 N [facility]ennialWpnroqlMWWDBLCHV8241-06-90 19:20:00 Test Item Value Reference Range Interpretation Comments Creatinine Lvl (test code = Creatinine 1.8 0.5-1.4 H Lvl) [facility]ennialQutxeguJZEURYUFB7415-03-38 19:20:00 Test Item Value Reference Range Interpretation Comments Potassium Lvl (test code = Potassium 4.0 3.5-5.1 N Lvl) [facility]ennialUenrpitZKTLZEDPA0111-53-75 19:20:00 Test Item Value Reference Range Interpretation Comments Sodium Lvl (test code = Sodium Lvl) 137 135-145 N [facility]ennialOdqryscSMBARCDNS4224-56-54 19:20:00 Test Item Value Reference Range Interpretation Comments BUN (test code = BUN) 25 7-22 H [facility]ennialLfhuuxxUJMSUNZPV8344-47-74 19:20:00 Test Item Value Reference Range Interpretation Comments Calcium Lvl (test code = Calcium Lvl) 8.7 8.5-10.5 N [facility]ennialNfyeaxhNEQSWUGPI1893-38-03 19:20:00 Test Item Value Reference Range Interpretation Comments CO2 (test code = CO2) 21 24-32 L [facility]ennialCpyxlhpPXBIGVKAG0623-79-46 19:20:00 Test Item Value Reference Range Interpretation Comments Chloride Lvl (test code = Chloride Lvl) 104 95-109 N [facility]ennialYqcfsebNAEDEHFJT5852-81-36 19:20:00 Test Item Value Reference Range Interpretation Comments AGAP (test code = AGAP) 16.0 10.0-20.0 N [facility]ennialPwsrtqaPPRSOJQZL0407-50-97 19:20:00 Test Item Value Reference Range Interpretation Comments Glucose Lvl (test code = Glucose Lvl) 86 70-99 N [facility]ennialKfnshuhREWWKKOYE4382-62-16 18:40:00 Test Item Value Reference Range Interpretation Comments Uric Acid (test code = Uric Acid) 8.3 3.8-8.0 H [facility]ennialYbvtkfzGTEGJWPGW6072-18-83 18:40:00 Test Item Value Reference Range Interpretation Comments B/C Ratio (test code = B/C Ratio) 14 6-25 N [facility]ennialXsdqpenPXFJZYLKG3658-56-39 18:40:00 Test Item Value Reference Range Interpretation Comments Globulin (test code = Globulin) 5.3 2.0-4.0 H [facility]ennialSjrdczfWSSYOXJNS4778-79-94 18:40:00 Test Item Value Reference Range Interpretation Comments A/G Ratio (test code = A/G Ratio) 0.6 0.7-1.6 L [facility]ennialHlutdemHOEBUXTSA7997-50-20 18:40:00 Test Item Value Reference Range Interpretation Comments AST (test code = AST) 18 See_Comment N [Auto mated message] The system which ge nerated this result transmit cruz reference range : <=37. The reference range was not used to interpr et this result as gee l/abnormal. [facility]ennialRljbxyfWPIHNMFDK5582-33-88 18:40:00 Test Item Value Reference Range Interpretation Comments Bili Total (test code = Bili Total) 0.6 0.2-1.3 N [facility] CentennialYqfikcmNBZMVFACN1855-38-67 18:40:00 Test Item Value Reference Range Interpretation Comments ALT (test code = ALT) 34 See_Comment N [Auto mated message] The system which ge nerated this result transmit cruz reference range : <=65. The reference range was not used to interpr et this result as gee l/abnormal. [facility]ennialFvusbciZVACXTTCJ4909-68-39 18:40:00 Test Item Value Reference Range Interpretation Comments Alk Phos (test code = Alk Phos) 97 39-136 N [facility]ennialJrlnfwtMSUHAEHJS8607-80-06 18:40:00 Test Item Value Reference Range Interpretation Comments Total Protein (test code = Total 8.6 6.4-8.4 H Protein) [facility]ennialXogbbcwEMMZYMIRE0629-30-66 18:40:00 Test Item Value Reference Range Interpretation Comments Albumin Lvl (test code = Albumin Lvl) 3.3 3.5-5.0 L [facility]HxyopqeVMOFRIIMZS9912-39-02 18:40:00 Test Item Value Reference Range Interpretation Comments MCV (test code = MCV) 95.9 80.0-94.0 H [facility] CenterPvnlpgnCLBXYTSPZS6849-07-26 18:40:00 Test Item Value Reference Range Interpretation Comments Hgb (test code = Hgb) 16.3 14.0-18.0 N [facility] CenterGixrtptZGYYHHOHAP3655-03-77 18:40:00 Test Item Value Reference Range Interpretation Comments Hct (test code = Hct) 48.3 42.0-54.0 N [facility] CenterEaayqxwXUDAHRIUYC6986-01-74 18:40:00 Test Item Value Reference Range Interpretation Comments RBC (test code = RBC) 5.03 4.70-6.10 N [facility] CenterRcagfntVHEVFSZWVK5916-39-24 18:40:00 Test Item Value Reference Range Interpretation Comments WBC (test code = WBC) 12.3 3.7-10.4 H [facility] CenterNnnfhplLLXVBVADWM3172-91-25 18:40:00 Test Item Value Reference Range Interpretation Comments MCH (test code = MCH) 32.5 pg 27.0-31.0 H [facility] CenterKwlduguFFBSPOJTXS0450-62-04 18:40:00 Test Item Value Reference Range Interpretation Comments Platelet (test code = Platelet) 160 133-450 N [facility] CenterGrpytnlVITDLGZEUK0213-43-48 18:40:00 Test Item Value Reference Range Interpretation Comments RDW (test code = RDW) 12.9 11.5-14.5 N [facility] CenterWbhtwbuVMOQUQVVJF4987-07-09 18:40:00 Test Item Value Reference Range Interpretation Comments MPV (test code = MPV) 9.4 7.4-10.4 N [facility] CenterGxusmeaBCRIFWYRUS3303-73-53 18:40:00 Test Item Value Reference Range Interpretation Comments MCHC (test code = MCHC) 33.8 32.0-36.0 N [facility] CenterUcufelaTKHZLBNRGT1586-33-60 18:40:00 Test Item Value Reference Range Interpretation Comments Monocytes # (test code 0.6 See_Comment N [Aut omated message] The = Monocytes #) system which generated this result tra nsmitted reference range : <=0.8. The reference r jillian was not used to int erpret this result as normal/abnormal . [facility] CenterSwgoudwTDDLYSQFPI9977-88-29 18:40:00 Test Item Value Reference Range Interpretation Comments Macrocyte (test code = 1+ *ABN*(01/08/2012 A Macrocyte) 13:40:00) [facility] CenterHewexqdOQWSSOMOAQ7018-34-02 18:40:00 Test Item Value Reference Range Interpretation Comments Eosinophils # (test code 0.0 See_Comment N [A utomated message] The = Eosinophils #) system whic h generated this result tra nsmitted reference range : <=0.5. The reference r jillian was not used to int erpret this result as normal/abnormal . [facility] CenterOwkbhvvKJFASJDVLR2748-13-52 18:40:00 Test Item Value Reference Range Interpretation Comments Lymphocytes # (test code = Lymphocytes 1.5 1.0-5.5 N #) [facility] CenterJmcznlhMPJCVEHCLQ1767-87-38 18:40:00 Test Item Value Reference Range Interpretation Comments Segs-Bands # (test code = Segs-Bands #) 10.1 1.5-8.1 H [facility] CenterPjbtoxjMJYYPQDWJA0930-72-79 18:40:00 Test Item Value Reference Range Interpretation Comments Eosinophils (test code = 0.2 See_Comment N [A utomated message] The Eosinophils) system which ge nerated this result tra nsmitted reference range : <=4.0. The reference r jillian was not used to int erpret this result as normal/abnormal . [facility] CenterCvgqettFWEIKTNJOI2741-10-70 18:40:00 Test Item Value Reference Range Interpretation Comments Basophils (test code = 0.3 See_Comment N [Aut omated message] The Basophils) system which ge nerated this result tra nsmitted reference range : <=1.0. The reference r jillian was not used to int erpret this result as normal/abnormal . [facility] CenterUfgsrlhOEFTNCLDSK9293-59-14 18:40:00 Test Item Value Reference Range Interpretation Comments Segs (test code = Segs) 82.4 45.0-75.0 H [facility] CenterRttwotiXSWYJSBZPF8835-45-05 18:40:00 Test Item Value Reference Range Interpretation Comments Monocytes (test code = Monocytes) 4.6 2.0-12.0 N [facility] CenterUtpquywKACYXETTMD6389-40-18 18:40:00 Test Item Value Reference Range Interpretation Comments Lymphocytes (test code = Lymphocytes) 12.5 20.0-40.0 L [facility] CenterQylbikoJNWXWGFZMG7410-28-90 18:40:00 Test Item Value Reference Range Interpretation Comments Plt Morph (test code = Normal (01/08/2012 N Plt Morph) 13:40:00) [facility] CenterIbayfbxTPQVYZFERB5424-56-25 18:40:00 Test Item Value Reference Range Interpretation Comments RBC Morph (test code = Normal (01/08/2012 N RBC Morph) 13:40:00) [facility]ZpvqysrKHHXPYUNFP5136-47-82 18:40:00 Test Item Value Reference Range Interpretation Comments CRP, High Sensitivity (test code = CRP, 79.6 High Sensitivity) [facility]ennialCfpbxucTDWKUQXUM8162-09-28 18:40:00 Test Item Value Reference Range Interpretation Comments Uric Acid (test code = Uric Acid) 8.3 3.8-8.0 H [facility]ennialCuekemnSXBLDPUPU4758-03-55 18:40:00 Test Item Value Reference Range Interpretation Comments B/C Ratio (test code = B/C Ratio) 14 6-25 N [facility]ennialNqjlvqaAWDFRXKAN2311-96-60 18:40:00 Test Item Value Reference Range Interpretation Comments Globulin (test code = Globulin) 5.3 2.0-4.0 H [facility] CentennialRfedomdZMYMLYCBP6410-15-81 18:40:00 Test Item Value Reference Range Interpretation Comments A/G Ratio (test code = A/G Ratio) 0.6 0.7-1.6 L [facility]ennialUbzjkroQZCPKWJIZ5131-83-33 18:40:00 Test Item Value Reference Range Interpretation Comments AST (test code = AST) 18 See_Comment N [Auto mated message] The system which ge nerated this result transmit cruz reference range : <=37. The reference range was not used to interpr et this result as gee l/abnormal. [facility]ennialLiignpoBHLLDHANN1268-05-07 18:40:00 Test Item Value Reference Range Interpretation Comments Bili Total (test code = Bili Total) 0.6 0.2-1.3 N [facility]ennialSgmumcxYCGMRQHOG6734-16-97 18:40:00 Test Item Value Reference Range Interpretation Comments ALT (test code = ALT) 34 See_Comment N [Auto mated message] The system which ge nerated this result transmit cruz reference range : <=65. The reference range was not used to interpr et this result as gee l/abnormal. [facility]ennialPruerjpISBSHBEZJ3285-87-73 18:40:00 Test Item Value Reference Range Interpretation Comments Alk Phos (test code = Alk Phos) 97 39-136 N [facility]ennialPdlsvfzCWMMFGHNI3465-03-62 18:40:00 Test Item Value Reference Range Interpretation Comments Total Protein (test code = Total 8.6 6.4-8.4 H Protein) [facility]ennialSgegyqqSSXDGWUKI2001-05-80 18:40:00 Test Item Value Reference Range Interpretation Comments Albumin Lvl (test code = Albumin Lvl) 3.3 3.5-5.0 L [facility] CenterRsyukewPUCGTYKDQF9643-19-22 18:40:00 Test Item Value Reference Range Interpretation Comments MCV (test code = MCV) 95.9 80.0-94.0 H [facility] CenterNzjbnguRCKNSLQLNR6247-46-11 18:40:00 Test Item Value Reference Range Interpretation Comments Hgb (test code = Hgb) 16.3 14.0-18.0 N [facility] CenterSvhkfbrIKMBGHIMVO0622-41-36 18:40:00 Test Item Value Reference Range Interpretation Comments Hct (test code = Hct) 48.3 42.0-54.0 N [facility] CenterKuqkauyGAVCFSFWJF2355-51-04 18:40:00 Test Item Value Reference Range Interpretation Comments RBC (test code = RBC) 5.03 4.70-6.10 N [facility] CenterVkewvlrAQVKCMIJDK8952-24-23 18:40:00 Test Item Value Reference Range Interpretation Comments WBC (test code = WBC) 12.3 3.7-10.4 H [facility] CenterZucoxxdOVGLQWFRWG7576-01-11 18:40:00 Test Item Value Reference Range Interpretation Comments MCH (test code = MCH) 32.5 pg 27.0-31.0 H [facility] CenterDhenbgtQLEQSBDELU7665-60-39 18:40:00 Test Item Value Reference Range Interpretation Comments Platelet (test code = Platelet) 160 133-450 N [facility] CenterKyutplnYATNDBGSIU9686-55-34 18:40:00 Test Item Value Reference Range Interpretation Comments RDW (test code = RDW) 12.9 11.5-14.5 N [facility] CenterOytvmgzQZYTXLBOOI1820-87-57 18:40:00 Test Item Value Reference Range Interpretation Comments MPV (test code = MPV) 9.4 7.4-10.4 N [facility] CenterIagzysxTWJIAHHLLU5836-84-38 18:40:00 Test Item Value Reference Range Interpretation Comments MCHC (test code = MCHC) 33.8 32.0-36.0 N [facility] CenterLrdblrvSDRRRQLZYS7432-69-65 18:40:00 Test Item Value Reference Range Interpretation Comments Monocytes # (test code 0.6 See_Comment N [Aut omated message] The = Monocytes #) system which generated this result tra nsmitted reference range : <=0.8. The reference r jillian was not used to int erpret this result as normal/abnormal . [facility] CenterRzftwnwMGALYSTGFN3044-09-20 18:40:00 Test Item Value Reference Range Interpretation Comments Macrocyte (test code = 1+ *ABN*(01/08/2012 A Macrocyte) 13:40:00) [facility] CenterQhzurrtNPOKPCEOGL6005-54-71 18:40:00 Test Item Value Reference Range Interpretation Comments Eosinophils # (test code 0.0 See_Comment N [A utomated message] The = Eosinophils #) system wh h generated this result tra nsmitted reference range : <=0.5. The reference r jillian was not used to int erpret this result as normal/abnormal . [facility] CenterEkrlzwgGFFFMGXAMI2646-81-98 18:40:00 Test Item Value Reference Range Interpretation Comments Lymphocytes # (test code = Lymphocytes 1.5 1.0-5.5 N #) [facility] CenterRhqsejxZVKEAWSLEF1503-51-16 18:40:00 Test Item Value Reference Range Interpretation Comments Segs-Bands # (test code = Segs-Bands #) 10.1 1.5-8.1 H [facility] CenterQwwuaihUDDLLPSNIA0088-66-75 18:40:00 Test Item Value Reference Range Interpretation Comments Eosinophils (test code = 0.2 See_Comment N [A utomated message] The Eosinophils) system which ge nerated this result tra nsmitted reference range : <=4.0. The reference r jillian was not used to int erpret this result as normal/abnormal . [facility] CenterUrqpzmfCIRZTZROAK5749-04-73 18:40:00 Test Item Value Reference Range Interpretation Comments Basophils (test code = 0.3 See_Comment N [Aut omated message] The Basophils) system which ge nerated this result tra nsmitted reference range : <=1.0. The reference r jillian was not used to int erpret this result as normal/abnormal . [facility] CenterNypqmbhZRVJSCNVSK7357-91-66 18:40:00 Test Item Value Reference Range Interpretation Comments Segs (test code = Segs) 82.4 45.0-75.0 H [facility] CenterKhofsskOJPXLDOFTV9594-67-86 18:40:00 Test Item Value Reference Range Interpretation Comments Monocytes (test code = Monocytes) 4.6 2.0-12.0 N [facility]GdewnheEFIGYXZSUX9338-75-51 18:40:00 Test Item Value Reference Range Interpretation Comments Lymphocytes (test code = Lymphocytes) 12.5 20.0-40.0 L [facility]EgqfuwfJEKSCGBPXN0473-36-16 18:40:00 Test Item Value Reference Range Interpretation Comments Plt Morph (test code = Normal (01/08/2012 N Plt Morph) 13:40:00) [facility]JpzhwmiWURNAFVDLL4354-12-54 18:40:00 Test Item Value Reference Range Interpretation Comments RBC Morph (test code = Normal (01/08/2012 N RBC Morph) 13:40:00) [facility] HospitalUxryrooIKVSFZUIGP0008-08-35 18:40:00 Test Item Value Reference Range Interpretation Comments CRP, High Sensitivity (test code = CRP, 79.6 High Sensitivity) [facility]YorvligZBKMUYRVM2324-05-01 18:40:00 Test Item Value Reference Range Interpretation Comments Uric Acid (test code = Uric Acid) 8.3 3.8-8.0 H [facility]ennialDvqrwwxBYDWLAHOA7950-11-54 18:40:00 Test Item Value Reference Range Interpretation Comments B/C Ratio (test code = B/C Ratio) 14 6-25 N [facility]ennialBnpjwqePPURFTCTM5358-69-29 18:40:00 Test Item Value Reference Range Interpretation Comments Globulin (test code = Globulin) 5.3 2.0-4.0 H [facility]ennialJftfqxeEAOICZVWT8935-47-97 18:40:00 Test Item Value Reference Range Interpretation Comments A/G Ratio (test code = A/G Ratio) 0.6 0.7-1.6 L [facility]ennialQpqzsziXGQBAKKWP8052-49-65 18:40:00 Test Item Value Reference Range Interpretation Comments AST (test code = AST) 18 See_Comment N [Auto mated message] The system which ge nerated this result transmit cruz reference range : <=37. The reference range was not used to interpr et this result as gee l/abnormal. [facility]ennialQnwkeepPBVCHGWPA4490-15-90 18:40:00 Test Item Value Reference Range Interpretation Comments Bili Total (test code = Bili Total) 0.6 0.2-1.3 N [facility]ennialXyppybtXKRETNUFD8351-32-04 18:40:00 Test Item Value Reference Range Interpretation Comments ALT (test code = ALT) 34 See_Comment N [Auto mated message] The system which ge nerated this result transmit cruz reference range : <=65. The reference range was not used to interpr et this result as gee l/abnormal. [facility]ennialQuxrmdeWVEJQRKUW6548-69-05 18:40:00 Test Item Value Reference Range Interpretation Comments Alk Phos (test code = Alk Phos) 97 39-136 N [facility]ennialPhcxtguITNKKWWZD9484-67-74 18:40:00 Test Item Value Reference Range Interpretation Comments Total Protein (test code = Total 8.6 6.4-8.4 H Protein) [facility]ennialIkqcfzlBUQJKZLFW5080-44-16 18:40:00 Test Item Value Reference Range Interpretation Comments Albumin Lvl (test code = Albumin Lvl) 3.3 3.5-5.0 L [facility]JajildbUGKGVUWMOV7578-31-56 18:40:00 Test Item Value Reference Range Interpretation Comments MCV (test code = MCV) 95.9 80.0-94.0 H [facility] CenterHeakbmuMFLNXGPLNE4995-82-82 18:40:00 Test Item Value Reference Range Interpretation Comments Hgb (test code = Hgb) 16.3 14.0-18.0 N [facility] CenterFvtxigjFPWSQDXEMB7174-28-12 18:40:00 Test Item Value Reference Range Interpretation Comments Hct (test code = Hct) 48.3 42.0-54.0 N [facility] CenterYqvuxrxEKAVYCKXHA5490-80-39 18:40:00 Test Item Value Reference Range Interpretation Comments RBC (test code = RBC) 5.03 4.70-6.10 N [facility] CenterWpsybgqOPTJGOWQST9553-86-91 18:40:00 Test Item Value Reference Range Interpretation Comments WBC (test code = WBC) 12.3 3.7-10.4 H [facility] CenterWbiyiigGIOMDLWUTE5918-20-49 18:40:00 Test Item Value Reference Range Interpretation Comments MCH (test code = MCH) 32.5 pg 27.0-31.0 H [facility] CenterXwftwgxFBOLQQYTOJ9405-48-15 18:40:00 Test Item Value Reference Range Interpretation Comments Platelet (test code = Platelet) 160 133-450 N [facility] CenterFzggebiBQBCPKVBYF0208-91-55 18:40:00 Test Item Value Reference Range Interpretation Comments RDW (test code = RDW) 12.9 11.5-14.5 N [facility] CenterXowecghIPTMVXSOSU1829-83-50 18:40:00 Test Item Value Reference Range Interpretation Comments MPV (test code = MPV) 9.4 7.4-10.4 N [facility] CenterXvcsoxdSFCJHZSZCQ6454-06-61 18:40:00 Test Item Value Reference Range Interpretation Comments MCHC (test code = MCHC) 33.8 32.0-36.0 N [facility] CenterTbgdxjzLGKXSOYFOE8380-13-55 18:40:00 Test Item Value Reference Range Interpretation Comments Monocytes # (test code 0.6 See_Comment N [Aut omated message] The = Monocytes #) system which generated this result tra nsmitted reference range : <=0.8. The reference r jillian was not used to int erpret this result as normal/abnormal . [facility] CenterTkwbapwTRYCABREMH2075-54-92 18:40:00 Test Item Value Reference Range Interpretation Comments Macrocyte (test code = 1+ *ABN*(01/08/2012 A Macrocyte) 13:40:00) [facility] CenterAlwiobcPTHLICCYZB7883-62-01 18:40:00 Test Item Value Reference Range Interpretation Comments Eosinophils # (test code 0.0 See_Comment N [A utomated message] The = Eosinophils #) system whic h generated this result tra nsmitted reference range : <=0.5. The reference r jillian was not used to int erpret this result as normal/abnormal . [facility] CenterDccqmscZZVCMPEHDA7590-32-25 18:40:00 Test Item Value Reference Range Interpretation Comments Lymphocytes # (test code = Lymphocytes 1.5 1.0-5.5 N #) [facility] CenterYxyolpmSGLDBGJNDL9638-30-56 18:40:00 Test Item Value Reference Range Interpretation Comments Segs-Bands # (test code = Segs-Bands #) 10.1 1.5-8.1 H [facility] CenterKdzcjorHSWZZHUEWS4722-83-03 18:40:00 Test Item Value Reference Range Interpretation Comments Eosinophils (test code = 0.2 See_Comment N [A utomated message] The Eosinophils) system which ge nerated this result tra nsmitted reference range : <=4.0. The reference r jillian was not used to int erpret this result as normal/abnormal . [facility] CenterIkhpeqvKDYCKVCBVW6917-62-10 18:40:00 Test Item Value Reference Range Interpretation Comments Basophils (test code = 0.3 See_Comment N [Aut omated message] The Basophils) system which ge nerated this result tra nsmitted reference range : <=1.0. The reference r jillian was not used to int erpret this result as normal/abnormal . [facility] CenterTlhjjgyKRXARRCSJY0954-19-12 18:40:00 Test Item Value Reference Range Interpretation Comments Segs (test code = Segs) 82.4 45.0-75.0 H [facility] CenterVqgbtwwUVZFHKEWZQ2578-72-06 18:40:00 Test Item Value Reference Range Interpretation Comments Monocytes (test code = Monocytes) 4.6 2.0-12.0 N [facility] CenterYifsicoIFDXJTWPTY7833-86-71 18:40:00 Test Item Value Reference Range Interpretation Comments Lymphocytes (test code = Lymphocytes) 12.5 20.0-40.0 L [facility] CenterKgrhdclASCJCRHZFC5384-96-64 18:40:00 Test Item Value Reference Range Interpretation Comments Plt Morph (test code = Normal (01/08/2012 N Plt Morph) 13:40:00) [facility] CenterIaitvzlLVCXZSBHID2303-75-48 18:40:00 Test Item Value Reference Range Interpretation Comments RBC Morph (test code = Normal (01/08/2012 N RBC Morph) 13:40:00) [facility] HospitalFhmueabANNAINUABN1864-42-29 18:40:00 Test Item Value Reference Range Interpretation Comments CRP, High Sensitivity (test code = CRP, 79.6 High Sensitivity) [facility] HospitalXajjzuyCJBQENFAF5494-05-94 18:40:00 Test Item Value Reference Range Interpretation Comments Uric Acid (test code = Uric Acid) 8.3 3.8-8.0 H [facility]ennialRjkoivfYQIZDRNPM6907-27-07 18:40:00 Test Item Value Reference Range Interpretation Comments B/C Ratio (test code = B/C Ratio) 14 6-25 N [facility]ennialQctrwfuXVACPYRET9599-93-21 18:40:00 Test Item Value Reference Range Interpretation Comments Globulin (test code = Globulin) 5.3 2.0-4.0 H [facility]ennialLjvufbkQGSSBRRPI2566-59-74 18:40:00 Test Item Value Reference Range Interpretation Comments A/G Ratio (test code = A/G Ratio) 0.6 0.7-1.6 L [facility]ennialPwgiekiYNGPCFAZU1902-91-67 18:40:00 Test Item Value Reference Range Interpretation Comments AST (test code = AST) 18 See_Comment N [Auto mated message] The system which ge nerated this result transmit cruz reference range : <=37. The reference range was not used to interpr et this result as gee l/abnormal. [facility]ennialUhmhxzqJZHRWZYAX2062-00-69 18:40:00 Test Item Value Reference Range Interpretation Comments Bili Total (test code = Bili Total) 0.6 0.2-1.3 N [facility]ennialGgmdqfoOHEOFDTVI8253-78-99 18:40:00 Test Item Value Reference Range Interpretation Comments ALT (test code = ALT) 34 See_Comment N [Auto mated message] The system which ge nerated this result transmit cruz reference range : <=65. The reference range was not used to interpr et this result as gee l/abnormal. [facility]ennialVpjvaawVCTWIPUVT8615-14-26 18:40:00 Test Item Value Reference Range Interpretation Comments Alk Phos (test code = Alk Phos) 97 39-136 N [facility]ennialXvkilpfWSJZAATGQ5346-51-52 18:40:00 Test Item Value Reference Range Interpretation Comments Total Protein (test code = Total 8.6 6.4-8.4 H Protein) [facility]ennialXblwjghANBUOOBKW2062-68-08 18:40:00 Test Item Value Reference Range Interpretation Comments Albumin Lvl (test code = Albumin Lvl) 3.3 3.5-5.0 L [facility] CenterFvevxgpNVEMADZRBH8088-47-65 18:40:00 Test Item Value Reference Range Interpretation Comments MCV (test code = MCV) 95.9 80.0-94.0 H [facility] CenterLzdvzpvJRSCJLBBHI5821-02-89 18:40:00 Test Item Value Reference Range Interpretation Comments Hgb (test code = Hgb) 16.3 14.0-18.0 N [facility] CenterJcgfyssEJJHKZCWKF3179-91-69 18:40:00 Test Item Value Reference Range Interpretation Comments Hct (test code = Hct) 48.3 42.0-54.0 N [facility] CenterSdpyfohSKZKIBJVIW7840-66-51 18:40:00 Test Item Value Reference Range Interpretation Comments RBC (test code = RBC) 5.03 4.70-6.10 N [facility] CenterMgdxwknLMGRFHCDTU2674-02-18 18:40:00 Test Item Value Reference Range Interpretation Comments WBC (test code = WBC) 12.3 3.7-10.4 H [facility] CenterTdryzxhWKPOVJYELV9241-16-83 18:40:00 Test Item Value Reference Range Interpretation Comments MCH (test code = MCH) 32.5 pg 27.0-31.0 H [facility] CenterIngzfnqHNKUTTBEHY2840-91-85 18:40:00 Test Item Value Reference Range Interpretation Comments Platelet (test code = Platelet) 160 133-450 N [facility] CenterKnwwtjnSAIOXPFMLH8223-59-60 18:40:00 Test Item Value Reference Range Interpretation Comments RDW (test code = RDW) 12.9 11.5-14.5 N [facility] CenterSxqoegqQIMWQMMBQD7243-30-68 18:40:00 Test Item Value Reference Range Interpretation Comments MPV (test code = MPV) 9.4 7.4-10.4 N [facility] CenterRzfsyvgGPPCWOSGOK9677-31-40 18:40:00 Test Item Value Reference Range Interpretation Comments MCHC (test code = MCHC) 33.8 32.0-36.0 N [facility] CenterRrgksyyFIVKUYTEVA5835-48-22 18:40:00 Test Item Value Reference Range Interpretation Comments Monocytes # (test code 0.6 See_Comment N [Aut omated message] The = Monocytes #) system which generated this result tra nsmitted reference range : <=0.8. The reference r jillian was not used to int erpret this result as normal/abnormal . [facility] CenterBqzfjioMJGFEPCAYK2657-32-31 18:40:00 Test Item Value Reference Range Interpretation Comments Macrocyte (test code = 1+ *ABN*(01/08/2012 A Macrocyte) 13:40:00) [facility] CenterBcmilbxZCAQVOERYH1599-73-77 18:40:00 Test Item Value Reference Range Interpretation Comments Eosinophils # (test code 0.0 See_Comment N [A utomated message] The = Eosinophils #) system whic h generated this result tra nsmitted reference range : <=0.5. The reference r jillian was not used to int erpret this result as normal/abnormal . [facility] CenterCyhjwtdBIOMDWREVX9934-63-90 18:40:00 Test Item Value Reference Range Interpretation Comments Lymphocytes # (test code = Lymphocytes 1.5 1.0-5.5 N #) [facility] CenterItrgxusGYLYXWIWQY1231-53-30 18:40:00 Test Item Value Reference Range Interpretation Comments Segs-Bands # (test code = Segs-Bands #) 10.1 1.5-8.1 H [facility] CenterZlklaqnXWUUKKJBZP2581-43-22 18:40:00 Test Item Value Reference Range Interpretation Comments Eosinophils (test code = 0.2 See_Comment N [A utomated message] The Eosinophils) system which ge nerated this result tra nsmitted reference range : <=4.0. The reference r jillian was not used to int erpret this result as normal/abnormal . [facility] CenterMdvyofjJAMPUUIQRO9022-07-55 18:40:00 Test Item Value Reference Range Interpretation Comments Basophils (test code = 0.3 See_Comment N [Aut omated message] The Basophils) system which ge nerated this result tra nsmitted reference range : <=1.0. The reference r jillian was not used to int erpret this result as normal/abnormal . [facility] CenterBdoczfkTFEECVZGHL2017-81-55 18:40:00 Test Item Value Reference Range Interpretation Comments Segs (test code = Segs) 82.4 45.0-75.0 H [facility] CenterAxpzqytRPEVGLXRFY8159-31-14 18:40:00 Test Item Value Reference Range Interpretation Comments Monocytes (test code = Monocytes) 4.6 2.0-12.0 N [facility] CenterUmhwsmaXEPXJJFSSU3150-50-10 18:40:00 Test Item Value Reference Range Interpretation Comments Lymphocytes (test code = Lymphocytes) 12.5 20.0-40.0 L [facility] CenterNcocownMZDHHDJJMM1770-48-10 18:40:00 Test Item Value Reference Range Interpretation Comments Plt Morph (test code = Normal (01/08/2012 N Plt Morph) 13:40:00) [facility] CenterErsyazeKCDCLZXMQS6037-19-72 18:40:00 Test Item Value Reference Range Interpretation Comments RBC Morph (test code = Normal (01/08/2012 N RBC Morph) 13:40:00) [facility] HospitalLapflfdLVPNBPZIHD0411-33-74 18:40:00 Test Item Value Reference Range Interpretation Comments CRP, High Sensitivity (test code = CRP, 79.6 High Sensitivity) [facility]JqsmhuuCnkakdjasgmn6957-25-48 18:32:00 Test Item Value Reference Range Interpretation Comments Culture: Blood (test code = Culture: Blood) [facility]YzebuvqFeicizlsutio1768-65-19 18:32:00 Test Item Value Reference Range Interpretation Comments Culture: Blood (test code = Culture: Blood) [facility]OgjggxcSxwtocsaapjm8337-30-30 18:32:00 Test Item Value Reference Range Interpretation Comments Culture: Blood (test code = Culture: Blood) [facility] CenterRcgwvbsVweglcgopciu6414-87-52 18:32:00 Test Item Value Reference Range Interpretation Comments Culture: Blood (test code = Culture: Blood) [facility] CenterMnmibtlPmvjfnpuaksa3600-24-78 18:25:00 Test Item Value Reference Range Interpretation Comments Culture: Blood (test code = Culture: Blood) [facility] CenterVwwjfhgLalljmdbmzpl9427-09-74 18:25:00 Test Item Value Reference Range Interpretation Comments Culture: Blood (test code = Culture: Blood) [facility] CenterIjjsauiBxuqhmwpxsss4784-42-84 18:25:00 Test Item Value Reference Range Interpretation Comments Culture: Blood (test code = Culture: Blood) [facility] CenterExgdozsSiyenfejpucn8034-66-51 18:25:00 Test Item Value Reference Range Interpretation Comments Culture: Blood (test code = Culture: Blood) [facility]nezfzaWYDOTGMVXU8245-42-52 17:30:00 Test Item Value Reference Range Interpretation Comments UA Urobilinogen (test code *NA*(01/08/2012 0.1-1.0 = UA Urobilinogen) 12:30:00) [facility]NuhifoyIXQPAYVYRX9494-39-32 17:30:00 Test Item Value Reference Range Interpretation Comments UA WBC (test code = 1 See_Comment N [Automa cruz message] The UA WBC) system which ge nerated this result transmit cruz reference range : <=5. The reference range was not used to interpr et this result as gee l/abnormal. [facility] TexasWzkskoaHTGRIWUQFH2651-55-88 17:30:00 Test Item Value Reference Range Interpretation Comments UA RBC (test code = no gt See_Comment N [Automa cruz message] The UA RBC) system which ge nerated this result transmit cruz reference range : <=2. The reference range was not used to interpr et this result as gee l/abnormal. [facility]JzxqwizNRQTOKNRXB4603-67-04 17:30:00 Test Item Value Reference Range Interpretation Comments UA Mucus (test code = Few /LPF UA Mucus) *NA*(01/08/2012 12:30:00) [facility]XuwufhwEGSQEQTTVU9473-46-48 17:30:00 Test Item Value Reference Range Interpretation Comments UA Nitrite (test code Negative (01/08/2012 N = UA Nitrite) 12:30:00) [facility]VlgcgpfGWXNONCGEV6307-19-06 17:30:00 Test Item Value Reference Range Interpretation Comments UA Leuk Est (test Negative (01/08/2012 N code = UA Leuk Est) 12:30:00) [facility]QtopyfzPRRQEHGUZM6617-73-57 17:30:00 Test Item Value Reference Range Interpretation Comments UA Ketones (test code Negative mg/dL = UA Ketones) *NA*(01/08/2012 12:30:00) [facility]ZmrkfbqUBNAWAMQWQ6366-95-75 17:30:00 Test Item Value Reference Range Interpretation Comments UA Bili (test code = Negative *NA*(01/08/2012 UA Bili) 12:30:00) [facility]FwjsehtVYEPOCPBPO5329-53-44 17:30:00 Test Item Value Reference Range Interpretation Comments UA Blood (test code = Negative (01/08/2012 N UA Blood) 12:30:00) [facility]EfiglqpYRUTXRWWCH7145-61-39 17:30:00 Test Item Value Reference Range Interpretation Comments UA pH (test code = UA pH) 5.5 5.0-8.0 N [facility] TexasNnnenolWQSWGBWTEE8936-59-81 17:30:00 Test Item Value Reference Range Interpretation Comments UA Protein (test code = 200 mg/dL A UA Protein) *ABN*(01/08/2012 12:30:00) [facility]EpdnaimVKGGQHZZGP4550-14-41 17:30:00 Test Item Value Reference Range Interpretation Comments UA Glucose (test code Negative mg/dL = UA Glucose) *NA*(01/08/2012 12:30:00) [facility] TexasCitsqmrQZZMKXHROK5079-97-74 17:30:00 Test Item Value Reference Range Interpretation Comments UA Sq Epi (test code = UA Sq Epi) None Seen [facility] TexasQvamndmJDZZVDAILZ8138-15-48 17:30:00 Test Item Value Reference Range Interpretation Comments UA Spec Grav (test code = UA Spec Grav) 1.012 N [facility]BqhrzxlSZPEPTTIMW3918-64-90 17:30:00 Test Item Value Reference Range Interpretation Comments UA Color (test code = Yellow *NA*(01/08/2012 UA Color) 12:30:00) [facility] HospitalHsmrwzfXYIBTESQVU9023-52-51 17:30:00 Test Item Value Reference Range Interpretation Comments UA Turbidity (test code = Clear (01/08/2012 N UA Turbidity) 12:30:00) [facility] HospitalGejusvoXjtkrxilmfsl2364-03-37 17:30:00 Test Item Value Reference Range Interpretation Comments Culture: Urine (test code = Culture: Urine) [facility] TexasIlepcncQPGMZNQDJO5981-79-17 17:30:00 Test Item Value Reference Range Interpretation Comments UA Urobilinogen (test code *NA*(01/08/2012 0.1-1.0 = UA Urobilinogen) 12:30:00) [facility] TexasZycvvlkSVVAWEEAZZ1487-88-51 17:30:00 Test Item Value Reference Range Interpretation Comments UA WBC (test code = 1 See_Comment N [Automa cruz message] The UA WBC) system which ge nerated this result transmit cruz reference range : <=5. The reference range was not used to interpr et this result as gee l/abnormal. [facility] HospitalPidrtifHZEKZVDDAA5150-30-96 17:30:00 Test Item Value Reference Range Interpretation Comments UA RBC (test code = no gt See_Comment N [Automa cruz message] The UA RBC) system which ge nerated this result transmit cruz reference range : <=2. The reference range was not used to interpr et this result as gee l/abnormal. [facility] HospitalWyftdxjMIMKOJSYDE8017-76-42 17:30:00 Test Item Value Reference Range Interpretation Comments UA Mucus (test code = Few /LPF UA Mucus) *NA*(01/08/2012 12:30:00) [facility] HospitalWalmgetWFZPRFWNGT8980-19-83 17:30:00 Test Item Value Reference Range Interpretation Comments UA Nitrite (test code Negative (01/08/2012 N = UA Nitrite) 12:30:00) [facility] TexasNkhcqeiKDNOOXJVZG5552-99-50 17:30:00 Test Item Value Reference Range Interpretation Comments UA Leuk Est (test Negative (01/08/2012 N code = UA Leuk Est) 12:30:00) [facility] HospitalXqnyvfxCYGYLROOBW6558-54-86 17:30:00 Test Item Value Reference Range Interpretation Comments UA Ketones (test code Negative mg/dL = UA Ketones) *NA*(01/08/2012 12:30:00) [facility] TexasLmwywlcBKGLUUVDQI7465-62-39 17:30:00 Test Item Value Reference Range Interpretation Comments UA Bili (test code = Negative *NA*(01/08/2012 UA Bili) 12:30:00) [facility]PmqchddWKBSRMDQEE8504-60-53 17:30:00 Test Item Value Reference Range Interpretation Comments UA Blood (test code = Negative (01/08/2012 N UA Blood) 12:30:00) [facility] TexasCqhmubiRVOQBJEJUF9784-71-03 17:30:00 Test Item Value Reference Range Interpretation Comments UA pH (test code = UA pH) 5.5 5.0-8.0 N [facility] TexasHstgyvkIHVOKLZYOF7034-96-02 17:30:00 Test Item Value Reference Range Interpretation Comments UA Protein (test code = 200 mg/dL A UA Protein) *ABN*(01/08/2012 12:30:00) [facility] TexasHapahwtNFXFDMYRYM4380-24-70 17:30:00 Test Item Value Reference Range Interpretation Comments UA Glucose (test code Negative mg/dL = UA Glucose) *NA*(01/08/2012 12:30:00) [facility] TexasKwwfcxkOETINHCEAL3595-77-15 17:30:00 Test Item Value Reference Range Interpretation Comments UA Sq Epi (test code = UA Sq Epi) None Seen [facility] TexasGnnsgqjCWKIEQPJDI4273-79-57 17:30:00 Test Item Value Reference Range Interpretation Comments UA Spec Grav (test code = UA Spec Grav) [address] [facility] HospitalLforvuiOCTENXXKXR9075-06-31 17:30:00 Test Item Value Reference Range Interpretation Comments UA Color (test code = Yellow *NA*(01/08/2012 UA Color) 12:30:00) [facility] TexasZjjwfznDIKHWSCUQD4370-38-75 17:30:00 Test Item Value Reference Range Interpretation Comments UA Turbidity (test code = Clear (01/08/2012 N UA Turbidity) 12:30:00) [facility] HospitalGjknrgpHxeznxlniydl1856-98-00 17:30:00 Test Item Value Reference Range Interpretation Comments Culture: Urine (test code = Culture: Urine) [facility] TexasCdryohrNCUOIHSAUE6466-22-45 17:30:00 Test Item Value Reference Range Interpretation Comments UA Urobilinogen (test code *NA*(01/08/2012 0.1-1.0 = UA Urobilinogen) 12:30:00) [facility] TexasQxvbguiOJUOZHAAZW5793-63-97 17:30:00 Test Item Value Reference Range Interpretation Comments UA WBC (test code = 1 See_Comment N [Automa cruz message] The UA WBC) system which ge nerated this result transmit cruz reference range : <=5. The reference range was not used to interpr et this result as gee l/abnormal. [facility] TexasWpfsdynTHSJVMFDNM3704-61-98 17:30:00 Test Item Value Reference Range Interpretation Comments UA RBC (test code = no gt See_Comment N [Automa cruz message] The UA RBC) system which ge nerated this result transmit cruz reference range : <=2. The reference range was not used to interpr et this result as gee l/abnormal. [facility] TexasSnkiefmWBNKQXEUPD3834-17-11 17:30:00 Test Item Value Reference Range Interpretation Comments UA Mucus (test code = Few /LPF UA Mucus) *NA*(01/08/2012 12:30:00) [facility] TexasVdizlbsNPZXTKHVCO6847-08-61 17:30:00 Test Item Value Reference Range Interpretation Comments UA Nitrite (test code Negative (01/08/2012 N = UA Nitrite) 12:30:00) [facility] TexasFpvwnpjRGJYIYNJMB4070-42-02 17:30:00 Test Item Value Reference Range Interpretation Comments UA Leuk Est (test Negative (01/08/2012 N code = UA Leuk Est) 12:30:00) [facility] TexasOvrtbcmVIBVNCSMNF7979-51-97 17:30:00 Test Item Value Reference Range Interpretation Comments UA Ketones (test code Negative mg/dL = UA Ketones) *NA*(01/08/2012 12:30:00) [facility] TexasOqixzhrWLZMJUZSIM2731-84-84 17:30:00 Test Item Value Reference Range Interpretation Comments UA Bili (test code = Negative *NA*(01/08/2012 UA Bili) 12:30:00) [facility] [facility]GeyoyozTUJGMWENRO4093-30-48 17:30:00 Test Item Value Reference Range Interpretation Comments UA Blood (test code = Negative (01/08/2012 N UA Blood) 12:30:00) [facility]JjzqizlBMBNSORWYY7086-25-81 17:30:00 Test Item Value Reference Range Interpretation Comments UA pH (test code = UA pH) 5.5 5.0-8.0 N [facility] TexasCxsmaeoXLCUVWPHBA8745-67-29 17:30:00 Test Item Value Reference Range Interpretation Comments UA Protein (test code = 200 mg/dL A UA Protein) *ABN*(01/08/2012 12:30:00) [facility] TexasOiykekeVBADSRTAGC0534-92-17 17:30:00 Test Item Value Reference Range Interpretation Comments UA Glucose (test code Negative mg/dL = UA Glucose) *NA*(01/08/2012 12:30:00) [facility]wnbabvTXNNIGYKZI6437-50-76 17:30:00 Test Item Value Reference Range Interpretation Comments UA Sq Epi (test code = UA Sq Epi) None Seen [facility]XqhcfzmHSPEMYGRHX8992-67-07 17:30:00 Test Item Value Reference Range Interpretation Comments UA Spec Grav (test code = UA Spec Grav) 1.012 N [facility] TexasQmymgszLFMEIVAHZY0499-17-02 17:30:00 Test Item Value Reference Range Interpretation Comments UA Color (test code = Yellow *NA*(01/08/2012 UA Color) 12:30:00) [facility] TexasLmkmubsXKMLCATXVP0742-78-25 17:30:00 Test Item Value Reference Range Interpretation Comments UA Turbidity (test code = Clear (01/08/2012 N UA Turbidity) 12:30:00) [facility] HospitalIfckvkqDtqonmtramae5604-92-10 17:30:00 Test Item Value Reference Range Interpretation Comments Culture: Urine (test code = Culture: Urine) [facility] TexasXebhnoaTEQYKCFKJN4873-02-35 17:30:00 Test Item Value Reference Range Interpretation Comments UA Urobilinogen (test code *NA*(01/08/2012 0.1-1.0 = UA Urobilinogen) 12:30:00) [facility] TexasNsjfltkTTPEYOXNNX5760-25-56 17:30:00 Test Item Value Reference Range Interpretation Comments UA WBC (test code = 1 See_Comment N [Automa cruz message] The UA WBC) system which ge nerated this result transmit cruz reference range : <=5. The reference range was not used to interpr et this result as gee l/abnormal. [facility] TexasEagectePKBLRSYTZF5606-19-37 17:30:00 Test Item Value Reference Range Interpretation Comments UA RBC (test code = no gt See_Comment N [Automa cruz message] The UA RBC) system which ge nerated this result transmit cruz reference range : <=2. The reference range was not used to interpr et this result as gee l/abnormal. [facility] TexasBoryaqdOVZTFQLCRC3363-16-88 17:30:00 Test Item Value Reference Range Interpretation Comments UA Mucus (test code = Few /LPF UA Mucus) *NA*(01/08/2012 12:30:00) [facility] TexasWgqnxksZBGZXNGHHV4973-55-50 17:30:00 Test Item Value Reference Range Interpretation Comments UA Nitrite (test code Negative (01/08/2012 N = UA Nitrite) 12:30:00) [facility] TexasKrljmhtPAWHWNYIQS7225-02-09 17:30:00 Test Item Value Reference Range Interpretation Comments UA Leuk Est (test Negative (01/08/2012 N code = UA Leuk Est) 12:30:00) [facility] TexasAnjfufcRFVFYYBYNW8601-38-24 17:30:00 Test Item Value Reference Range Interpretation Comments UA Ketones (test code Negative mg/dL = UA Ketones) *NA*(01/08/2012 12:30:00) [facility] TexasPzhqwwdHASQTYOANN9379-67-97 17:30:00 Test Item Value Reference Range Interpretation Comments UA Bili (test code = Negative *NA*(01/08/2012 UA Bili) 12:30:00) [facility] TexasLrkoxjgJAQQZGRZPF1567-30-89 17:30:00 Test Item Value Reference Range Interpretation Comments UA Blood (test code = Negative (01/08/2012 N UA Blood) 12:30:00) [facility] TexasWyaperpCHTZNWNXOK2575-84-03 17:30:00 Test Item Value Reference Range Interpretation Comments UA pH (test code = UA pH) 5.5 5.0-8.0 N [facility] TexasMemlxrxDECDSTRRFC5565-93-55 17:30:00 Test Item Value Reference Range Interpretation Comments UA Protein (test code = 200 mg/dL A UA Protein) *ABN*(01/08/2012 12:30:00) [facility] TexasAyyaipeVJBVGDXHIO9760-92-49 17:30:00 Test Item Value Reference Range Interpretation Comments UA Glucose (test code Negative mg/dL = UA Glucose) *NA*(01/08/2012 12:30:00) [facility] HospitalSdsuglmHGKHPOGHHG6108-88-37 17:30:00 Test Item Value Reference Range Interpretation Comments UA Sq Epi (test code = UA Sq Epi) None [facility]en [facility] HospitalZwdunhoANHJOEEKCD6264-23-55 17:30:00 Test Item Value Reference Range Interpretation Comments UA Spec Grav (test code = UA Spec Grav) 1.[address] [facility] [address] [facility] HospitalImknrsaCOTYKBIFQR1723-05-26 17:30:00 Test Item Value Reference Range Interpretation Comments UA Color (test code = Yellow *NA*(01/08/2012 UA Color) 12:30:00) [facility] HospitalSgwmzzqPHNZGDWLRY0169-74-49 17:30:00 Test Item Value Reference Range Interpretation Comments UA Turbidity (test code = Clear (01/08/2012 N UA Turbidity) 12:30:00) [facility] HospitalXrholeaRdzgryzocvqz7698-99-82 17:30:00 Test Item Value Reference Range Interpretation Comments Culture: Urine (test code = Culture: Urine) [facility] History and Physical Notes Date/Time Note Provider Source 2022-12-14 17:17:00-00:00 Hanna Mitchell MD: [facility] PERFORMEvent Display: History and PhysicalAuthored Date: [id number] and Physical Primary Team Name:Team Contact Info:PCP Contact info:Family contact info: Rosy Ingram (friend) Code Status: None Specified=FULL CODE Chief Complaint: LUE swelling History of Present Illness: 57M w/ ESRD on HD (MWF), HTN, Hx CVA 10/2013 (residual LUE weakness and left facial droop), past polysubstance abuse > 10 years ago 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 Patient has [...] for possible revision with [facility] in [place], however surgery has been postponed 2/2 supply [...] consult for intervention Ordered: Admit/Condition, 12/03/22 5:29:00 ENTRY LEVEL ELECTRICAL ENGINEER, Status: Inpatient, Acute, Expected LOS: 2 Midnights, Hanna Mitchell MD, Admit MD Review/Approve Yes, Isolation: No Isolation/Standard Precautions, Complications, dialysis, catheter, mechanical | ESRD on hemodialysis 2. ESRD on hemodialysis (N18.6) Ordered: Renvela, 1,600 mg, Route: PO, TID-Meals, Dosing Weight 91.364, kg, Start date: 12/03/22 8:00:00 ENTRY LEVEL ELECTRICAL ENGINEER, Duration: 30 day, Stop date: 01/01/23 17:00:00 CDT, Admit/Condition, 12/03/22 5:29:00 ENTRY LEVEL ELECTRICAL ENGINEER, Status: Inpatient, Acute, Expected LOS: 2 Midnights, Hanna Mitchell MD, Admit MD Review/Approve Yes, Isolation: No Isolation/Standard Precautions, Complications, dialysis, catheter, mechanical | ESRD on hemodialysis 3. HTN (hypertension) (I10) Ordered: metoprolol tartrate, 25 mg, Route: PO, Drug form: TAB, Q12H, Dosing Weight 91.364, kg, Start date: 12/03/22 9:00:00 ENTRY LEVEL ELECTRICAL ENGINEER, Duration: 30 day, Stop date: 01/01/23 21:00:00 CDT 4. History of stroke in adulthood (Z86.73) Residual LUE weakness/near paralysis and left facial droop N.p.o. after 3 AM for vascular surgery evaluation Prophylaxis -SCDs-Holding chemical VTE PPx at this time for evaluation for possible same-day invasive procedure Disposition Inpatient admissionBaksHanna ascencio MDElectronically Signed: 12/03/22 05:37 2022-12-14 17:17:00-00:00 Hanna Mitchell MD: [facility] PERFOR[employer]vent Display: History and PhysicalAuthored Date: [id number] and Physical Primary Team Name:Team Contact Info:PCP Contact info:Family contact info: Rosy Ingram (friend) Code Status: None Specified=FULL CODE Chief Complaint: LUE swelling History of Present Illness: 57M w/ ESRD on HD (MWF), HTN, Hx CVA 10/2013 (residual LUE weakness and left facial droop), past polysubstance abuse > 10 years ago 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 Patient has [...] for possible revision with [facility] in [place], however surgery has been postponed 2/2 supply [...] consult for intervention Ordered: Admit/Condition, 12/03/22 5:29:00 ENTRY LEVEL ELECTRICAL ENGINEER, Status: Inpatient, Acute, Expected LOS: 2 Midnights, Hanna Mitchell MD, Admit Review/Approve Yes, Isolation: No Isolation/Standard Precautions, Complications, dialysis, catheter, mechanical | ESRD on hemodialysis 2. ESRD on hemodialysis (N18.6) Ordered: Renvela, 1,600 mg, Route: PO, TID-Meals, Dosing Weight 91.364, kg, Start date: 12/03/22 8:00:00 ENTRY LEVEL ELECTRICAL ENGINEER, Duration: 30 day, Stop date: 01/01/23 17:00:00 CDT, Admit/Condition, 12/03/22 5:29:00 ENTRY LEVEL ELECTRICAL ENGINEER, Status: Inpatient, Acute, Expected LOS: 2 Midnights, Hanna Mitchell MD, Admit Review/Approve Yes, Isolation: No Isolation/Standard Precautions, Complications, dialysis, catheter, mechanical | ESRD on hemodialysis 3. HTN (hypertension) (I10) Ordered: metoprolol tartrate, 25 mg, Route: PO, Drug form: TAB, Q12H, Dosing Weight 91.364, kg, Start date: 12/03/22 9:00:00 ENTRY LEVEL ELECTRICAL ENGINEER, Duration: 30 day, Stop date: 01/01/23 21:00:00 CDT 4. History of stroke in adulthood (Z86.73) Residual LUE weakness/near paralysis and left facial droop N.p.o. after 3 AM for vascular surgery evaluation Prophylaxis -SCDs-Holding chemical VTE PPx at this time for evaluation for possible same-day invasive procedure Disposition Inpatient admissionHanna Mitchell MDElectronically Signed: 12/03/22 05:37 2022-12-14 17:17:00-00:00 Hanna Mitchell MD: [facility] PERFOR[employer] Display: History and PhysicalAuthored Date: [id number] and Physical Primary Team Name:Team Contact Info:PCP Contact info:Family contact info: Rosy Ingram (friend) Code Status: None Specified=FULL CODE Chief Complaint: LUE swelling History of Present Illness: 57M w/ ESRD on HD (MWF), HTN, Hx CVA 10/2013 (residual LUE weakness and left facial droop), past polysubstance abuse > 10 years ago 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 Patient has [...] for possible revision with [facility] in [place], however surgery has been postponed 2/2 supply [...] consult for intervention Ordered: Admit/Condition, 12/03/22 5:29:00 ENTRY LEVEL ELECTRICAL ENGINEER, Status: Inpatient, Acute, Expected LOS: 2 Midnights, Hanna Mitchell MD, Admye MORA Review/Approve Yes, Isolation: No Isolation/Standard Precautions, Complications, dialysis, catheter, mechanical | ESRD on hemodialysis 2. ESRD on hemodialysis (N18.6) Ordered: Renvela, 1,600 mg, Route: PO, TID-Meals, Dosing Weight 91.364, kg, Start date: 12/03/22 8:00:00 ENTRY LEVEL ELECTRICAL ENGINEER, Duration: 30 day, Stop date: 01/01/23 17:00:00 CDT, Admit/Condition, 12/03/22 5:29:00 ENTRY LEVEL ELECTRICAL ENGINEER, Status: Inpatient, Acute, Expected LOS: 2 Midnights, Hanna Mitchell MD, Admit MD Review/Approve Yes, Isolation: No Isolation/Standard Precautions, Complications, dialysis, catheter, mechanical | ESRD on hemodialysis 3. HTN (hypertension) (I10) Ordered: metoprolol tartrate, 25 mg, Route: PO, Drug form: TAB, Q12H, Dosing Weight 91.364, kg, Start date: 12/03/22 9:00:00 ENTRY LEVEL ELECTRICAL ENGINEER, Duration: 30 day, Stop date: 01/01/23 21:00:00 CDT 4. History of stroke in adulthood (Z86.73) Residual LUE weakness/near paralysis and left facial droop N.p.o. after 3 AM for vascular surgery evaluation Prophylaxis -SCDs-Holding chemical VTE PPx at this time for evaluation for possible same-day invasive procedure Disposition Inpatient admissionBaHanna ascencio MDElectronically Signed: 12/03/22 05:37 2022-12-14 17:17:00-00:00 Hanna Mitchell MD: [facility] PER[facility] Display: History and PhysicalAuthored Date: [id number] and Physical Primary Team Name:Team Contact Info:PCP Contact info:Family contact info: Rosy Ingram (friend) Code Status: None Specified=FULL CODE Chief Complaint: LUE swelling History of Present Illness: 57M w/ ESRD on HD (MWF), HTN, Hx CVA 10/2013 (residual LUE weakness and left facial droop), past polysubstance abuse > 10 years ago 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 Patient has [...] for possible revision with [facility] in [place], however surgery has been postponed 2/2 supply [...] consult for intervention Ordered: Admit/Condition, 12/03/22 5:29:00 ENTRY LEVEL ELECTRICAL ENGINEER, Status: Inpatient, Acute, Expected LOS: 2 Midnights, Hanna Mitchell MD, Admit MD Review/Approve Yes, Isolation: No Isolation/Standard Precautions, Complications, dialysis, catheter, mechanical | ESRD on hemodialysis 2. ESRD on hemodialysis (N18.6) Ordered: Renvela, 1,600 mg, Route: PO, TID-Meals, Dosing Weight 91.364, kg, Start date: 12/03/22 8:00:00 ENTRY LEVEL ELECTRICAL ENGINEER, Duration: 30 day, Stop date: 01/01/23 17:00:00 CDT, Admit/Condition, 12/03/22 5:29:00 ENTRY LEVEL ELECTRICAL ENGINEER, Status: Inpatient, Acute, Expected LOS: 2 Midnights, Hanna Mitchell MD, Admit Review/Approve Yes, Isolation: No Isolation/Standard Precautions, Complications, dialysis, catheter, mechanical | ESRD on hemodialysis 3. HTN (hypertension) (I10) Ordered: metoprolol tartrate, 25 mg, Route: PO, Drug form: TAB, Q12H, Dosing Weight 91.364, kg, Start date: 12/03/22 9:00:00 ENTRY LEVEL ELECTRICAL ENGINEER, Duration: 30 day, Stop date: 01/01/23 21:00:00 [...] Matty Cote MD On 12/06/2022 07:43:05; MICHELLE [id number] 2022-12-06 PROCEDURE INFORMATION: CARMINA peck 07:15:23-00:00 Exam: [...] Matty Cote MD On 12/06/2022 07:43:05; MICHELLE [id number] 2022-12-06 PROCEDURE INFORMATION: CARMINA peck 07:15:23-00:00 Exam: [...] Matty Cote MD On 12/06/2022 07:43:05; MICHELLE [id number] 2022-12-06 PROCEDURE INFORMATION: MH Southe ast 07:15:23-00:00 Exam: XR Chest Exam date [...] Matty Cote MD On 12/06/2022 07:43:05; ANTONI-K [id number] 2022-12-03 PROCEDURE INFORMATION: Benitez liv 08:00:00-00:00 Exam: US Duplex Hemodialysis Access Exam [...] Valentin Evans MD On 12/03/2022 09:19:45; VR -[id number] 2022-12-03 PROCEDURE INFORMATION: Benitezelizabeth peck 08:00:00-00:00 Exam: US Duplex Hemodialysis Access [...] Valentin Evans MD On 12/03/2022 09:19:45; VR -[id number] 2022-12-03 PROCEDURE INFORMATION: Bry peck 08:00:00-00:00 Exam: [...] Valentin Evans MD On 12/03/2022 09:19:45; VR -[id number] 2022-12-03 PROCEDURE INFORMATION: Bry peck 08:00:00-00:00 Exam: [...] Valentin Evans MD On 12/03/2022 09:19:45; VR -[id number] 2022-12-03 PROCEDURE INFORMATION: Bry peck 07:05:00-00:00 Exam: [...] 08:03:26; [id number] 2022-12-03 PROCEDURE INFORMATION: CARMINA peck 07:05:00-00:00 Exam: [...] 08:03:26; [id number] 2022-12-03 PROCEDURE INFORMATION: CARMINA peck 07:05:00-00:00 Exam: [...] EXAM: XR LEFT KNEE 3 VIEWS Thiago Biggs 16:25:00-00:00 DATE: 01/27/[address] INDICATION: - L knee pain after fall COMPARISON: Left knee radiograph 11/03/2012 TECHNIQUE: 3 views of the knee FINDINGS: No acute fracture or malalignment is i dentified. No knee joint effusion is present. No soft tissu e abnormality is identified. IMPRESSION: No acute abnormality. UT SECTION: ER 2018-01-27 EXAM: XR LEFT KNEE 3 VIEWS [facility] 16:25:00-00:00 DATE: 01/27/[address] INDICATION: - L knee pain after fall COMPARISON: Left knee radiograph 11/03/2012 TECHNIQUE: 3 views of the knee FINDINGS: No acute fracture or malalignment is i dentified. No knee joint effusion is present. No soft tissu e abnormality is identified. IMPRESSION: No acute abnormality. UT SECTION: 2018-01-27 EXAM: XR LEFT KNEE 3 VIEWS [facility] 16:25:00-00:00 DATE: 01/27/[address] INDICATION: - L knee pain after fall COMPARISON: Left knee radiograph 11/03/2012 TECHNIQUE: 3 views of the knee FINDINGS: No acute fracture or malalignment is i dentified. No knee joint effusion is present. No soft tissu e abnormality is identified. IMPRESSION: No acute abnormality. UT SECTION: 2018-01-27 EXAM: XR LEFT KNEE 3 VIEWS [facility] 16:25:00-00:00 DATE: 01/27/[address] INDICATION: - L knee pain after fall COMPARISON: Left knee radiograph 11/03/2012 TECHNIQUE: 3 views of the knee FINDINGS: No acute fracture or malalignment is i dentified. No knee joint effusion is present. No soft tissu e abnormality is identified. IMPRESSION: No acute abnormality. UT SECTION: 2017-04-10 PROCEDURES PERFORMED: Sugar L and 12:02:35-00:00 [...] Total sedation time was 30 minutes. DAP :[id number] mgy-cm Fluoro time: 8.3 min PROCEDURE DETAILS: [...] wires, the catheter was exchanged for a 7-Belizean vascular sheath. An SVC venogram was performe [...] Total sedation time was 30 minutes. DAP :[id number] mgy-cm Fluoro time: 8.3 min PROCEDURE DETAILS: [...] wires, the catheter was exchanged for a 7-Belizean vascular sheath. An SVC venogram was performe [...] Total sedation time was 30 minutes. DAP :[id number] mgy-cm Fluoro time: 8.3 min PROCEDURE DETAILS: [...] wires, the catheter was exchanged for a 7-Belizean vascular sheath. An SVC venogram was performe [...] Total sedation time was 30 minutes. DAP :[id number] mgy-cm Fluoro time: 8.3 min PROCEDURE DETAILS: [...] wires, the catheter was exchanged for a 7-Belizean vascular sheath. An SVC venogram was performe [...] use. 2017-04-10 PROCEDURES PERFORMED: Isabell L and 11:13:41-00:00 1. Exchange of right IJ [...] Total sedation time was 30 minutes. DAP :[id number] mgy-cm Fluoro time: 8.3 min PROCEDURE DETAILS: [...] wires, the catheter was exchanged for a 7-Belizean vascular sheath. An SVC venogram was performe [...] use. 2017-04-10 PROCEDURES PERFORMED: Isabell L and 11:13:41-00:00 1. Exchange of right IJ [...] Total sedation time was 30 minutes. DAP :[id number] mgy-cm Fluoro time: 8.3 min PROCEDURE DETAILS: [...] wires, the catheter was exchanged for a 7-Belizean vascular sheath. An SVC venogram was performe [...] Total sedation time was 30 minutes. DAP :[id number] mgy-cm Fluoro time: 8.3 min PROCEDURE DETAILS: [...] wires, the catheter was exchanged for a 7-Belizean vascular sheath. An SVC venogram was performe [...] Total sedation time was 30 minutes. DAP :[id number] mgy-cm Fluoro time: 8.3 min PROCEDURE DETAILS: [...] wires, the catheter was exchanged for a 7-Belizean vascular sheath. An SVC venogram was performe [...] Total sedation time was 30 minutes. DAP :[id number] mgy-cm Fluoro time: 8.3 min PROCEDURE DETAILS: [...] wires, the catheter was exchanged for a 7-Belizean vascular sheath. An SVC venogram was performe [...] Total sedation time was 30 minutes. DAP :[id number] mgy-cm Fluoro time: 8.3 min PROCEDURE DETAILS: [...] wires, the catheter was exchanged for a 7-Belizean vascular sheath. An SVC venogram was performe [...] Total sedation time was 30 minutes. DAP :[id number] mgy-cm Fluoro time: 8.3 min PROCEDURE DETAILS: [...] wires, the catheter was exchanged for a 7-Belizean vascular sheath. An SVC venogram was performe [...] Total sedation time was 30 minutes. DAP :[id number] mgy-cm Fluoro time: 8.3 min PROCEDURE DETAILS: [...] wires, the catheter was exchanged for a 7-Belizean vascular sheath. An SVC venogram was performe [...] use. 2017-04-10 PROCEDURES PERFORMED: Isabell L and 11:13:10-00:00 1. Exchange of right [...] Total sedation time was 30 minutes. DAP :[id number] mgy-cm Fluoro time: 8.3 min PROCEDURE DETAILS: [...] wires, the catheter was exchanged for a 7-Belizean vascular sheath. An SVC venogram was performe [...] use. 2017-04-10 PROCEDURES PERFORMED: Isabell L and 11:13:10-00:00 1. Exchange of right [...] Total sedation time was 30 minutes. DAP :515154 mgy-cm Fluoro time: 8.3 min PROCEDURE DETAILS: [...] wires, the catheter was exchanged for a 7-Belizean vascular sheath. An SVC venogram was performe [...] Total sedation time was 30 minutes. DAP :[id number] mgy-cm Fluoro time: 8.3 min PROCEDURE DETAILS: [...] wires, the catheter was exchanged for a 7-Belizean vascular sheath. An SVC venogram was performe [...] Total sedation time was 30 minutes. DAP :[id number] mgy-cm Fluoro time: 8.3 min PROCEDURE DETAILS: [...] wires, the catheter was exchanged for a 7-Belizean vascular sheath. An SVC venogram was performe [...] CLINICAL HISTORY: - dialysis catheter malfunctio ramesh [place] 17:46:48-00:00 AGE: 51 years GENDER: Male TECHNIQUE: [...] CLINICAL HISTORY: - dialysis catheter malfunctio ramesh MH [place] 17:46:48-00:00 AGE: 51 years GENDER: Male TECHNIQUE: [...] CLINICAL HISTORY: - dialysis catheter malfunctio ramesh MH [place] 17:46:48-00:00 AGE: 51 years GENDER: Male TECHNIQUE: [...] CLINICAL HISTORY: - dialysis catheter malfunctio ramesh [place] 17:46:48-00:00 AGE: 51 years GENDER: Male TECHNIQUE: [...] in the SVC. 2017-03-12 PROCEDURES PERFORMED: Sugar and 12:45:10-00:00 1. Placement of tunnelled hemodialysis [...] was sequentially dilated, ultimately with an 18 Belizean peel-away sheath. Th e wire and dilator [...] is okay for use. 2017-03-12 PROCEDURES PERFORMED: CARMINA Araujo and 12:45:10-00:00 [...] was sequentially dilated, ultimately with an 18 Belizean peel-away sheath. Th e wire and dilator [...] is okay for use. 2017-03-12 PROCEDURES PERFORMED: CARMINA Araujo and 12:45:10-00:00 [...] was sequentially dilated, ultimately with an 18 Belizean peel-away sheath. Th e wire and dilator [...] is okay for use. 2017-03-12 PROCEDURES PERFORMED: CARMINA Araujo and 12:45:10-00:00 [...] was sequentially dilated, ultimately with an 18 Bel[place]an peel-away sheath. Th e wire and dilator [...] bony abnormality. IMPRESSION: No acute abnormality SL: [id number] 2017-03-11 EXAM: XR CHEST 1 VIEW MH Sugar L and 08:45:00-00:00 DATE: 03/11/2017 8:41 AM CDT INDICATION: renal failure - eval COMPARISON: 11/24/2013 TECHNIQUE: Frontal chest radiograph FINDINGS: The lungs are clear. The cardiomediastinal silhouette is normal. There is no acute bony abnormality. IMPRESSION: No acute abnormality SL: [id number] 2017-03-11 EXAM: XR CHEST 1 VIEW MH Sugar L and 08:45:00-00:00 DATE: 03/11/2017 8:41 AM CDT INDICATION: renal failure - eval COMPARISON: 11/24/2013 TECHNIQUE: Frontal chest radiograph FINDINGS: The lungs are clear. The cardiomediastinal silhouette is normal. There is no acute bony abnormality. IMPRESSION: No acute abnormality SL: [id number] 2017-03-11 EXAM: XR CHEST 1 VIEW MH Sugar L and 08:45:00-00:00 DATE: 03/11/2017 8:41 AM CDT INDICATION: renal failure - eval COMPARISON: 11/24/2013 TECHNIQUE: Frontal chest radiograph FINDINGS: The lungs are clear. The cardiomediastinal silhouette is normal. There is no acute bony abnormality. IMPRESSION: No acute abnormality SL: [id number] 2017-03-10 EXAM: [facility] [place] 20:38:23-00:00 Renal ultrasound. CLINICAL HX: Kidney failure. [...] clinically for medical renal disease. 2017-03-10 EXAM: [facility] 20:38:23-00:00 Renal ultrasound. CLINICAL HX: Kidney [...] clinically for medical renal disease. 2017-03-10 EXAM: [place] 20:38:23-00:00 Renal ultrasound. CLINICAL HX: Kidney failure. [...] clinically for medical renal disease. 2017-03-10 EXAM: [facility] 20:38:23-00:00 Renal ultrasound. CLINICAL HX: Kidney [...] Esophagus barium swallow function video ( Rad) [facility] 10:42:33-00:00 Fluoro time: 4.1 min FINDINGS: Fluoroscopic [...] Esophagus barium swallow function video ( Rad) [facility] 10:42:33-00:00 Fluoro time: 4.1 min FINDINGS: Fluoroscopic [...] Esophagus barium swallow function video ( Rad) [facility] 10:42:33-00:00 Fluoro time: 4.1 min FINDINGS: Fluoroscopic [...] Esophagus barium swallow function video ( Rad) [facility] 10:42:33-00:00 Fluoro time: 4.1 min FINDINGS: Fluoroscopic imagi ng was provided for the speech pathologist to perform a modified barium swallow study. The patient was allowed to ingest foods containing barium and lateral imaging of the pharynx and esophagus was performed. IMPRESSION: Fluoroscopic seven ging provided for modified barium swallow study. Please see speech pathologist report for findings. 2013-11-24 Single view abdomen. [facility] 22:48:45-00:00 INDICATION: Tube change. COMPARISON: Yesterday. IMPRESSION: There appears to be a nasoga stric tube with tip projecting over the left upper quadrant in the expected region of the stomach. 2013-11-24 Single view abdomen. [facility] 22:48:45-00:00 INDICATION: Tube change. COMPARISON: Yesterday. IMPRESSION: There appears to be a nasoga stric tube with tip projecting over the left upper quadrant in the expected region of the stomach. 2013-11-24 Single view abdomen. [facility] 22:48:45-00:00 INDICATION: Tube change. COMPARISON: Yesterday. IMPRESSION: There appears to be a nasoga stric tube with tip projecting over the left upper quadrant in the expected region of the stomach. 2013-11-24 Single view abdomen. [facility] 22:48:45-00:00 INDICATION: Tube change. COMPARISON: Yesterday. IMPRESSION: There appears to be a nasoga stric tube with tip projecting over the left upper quadrant in the expected region of the stomach. 2013-11-24 Single view chest. [facility] 04:14:30-00:00 INDICATION: Cough and fever. COMPARISON: November 22, 2013. FINDINGS: New nasogastric tube with ti p inferior to the level of exam. Cardiac silhouette is within normal limits. Mild pulmonary vascular congestion is again seen. No pneumothorax, lobar consolidation, or pleural effusion. Unremarkable osseous structures. IMPRESSION: Stable mild pulmonary vascular congestion. 2013-11-24 Single view chest. [facility] 04:14:30-00:00 INDICATION: Cough and fever. COMPARISON: November 22, 2013. FINDINGS: New nasogastric tube with ti p inferior to the level of exam. Cardiac silhouette is within normal limits. Mild pulmonary vascular congestion is again seen. No pneumothorax, lobar consolidation, or pleural effusion. Unremarkable osseous structures. IMPRESSION: Stable mild pulmonary vascular congestion. 2013-11-24 Single view chest. [facility] 04:14:30-00:00 INDICATION: Cough and fever. COMPARISON: November 22, 2013. FINDINGS: New nasogastric tube with ti p inferior to the level of exam. Cardiac silhouette is within normal limits. Mild pulmonary vascular congestion is again seen. No pneumothorax, lobar consolidation, or pleural effusion. Unremarkable osseous structures. IMPRESSION: Stable mild pulmonary vascular congestion. 2013-11-24 Single view chest. [facility] 04:14:30-00:00 INDICATION: Cough and fever. COMPARISON: November 22, 2013. FINDINGS: New nasogastric tube with ti p inferior to the level of exam. Cardiac silhouette is within normal limits. Mild pulmonary vascular congestion is again seen. No pneumothorax, lobar consolidation, or pleural effusion. Unremarkable osseous structures. IMPRESSION: Stable mild pulmonary vascular congestion. 2013-11-23 CLINICAL HISTORY:Bleeding. [facility] 19:29:02-00:00 Sex: M. : 1965. TECHNIQUE: Axial scans were performed through the head with axial dataset following bolus intravenous injection of 50 cc of Visipaque including multiplanar computer-generated MIP reformations. 3-D imagi ng was unable to be performed. Total Dose(DLP): 2016 mGy-cm. CTA brain: Large right-sided hemorrhage s with edema and mass effect noted on the data network architect series. Visualization is limited bec ause of [...] No hemodynamically significant lesion. 2013-11-23 CLINICAL HISTORY:Bleeding. [facility] 19:29:02-00:00 Sex: M. : 1965. TECHNIQUE: Axial scans were performed through the head with axial dataset following bolus intravenous injection of 50 cc of Visipaque including multiplanar computer-generated MIP reformations. 3-D imagi ng was unable to be performed. Total Dose(DLP): 2016 mGy-cm. CTA brain: Large right-sided hemorrhage s with edema and mass effect noted on the data network architect series. Visualization is limited bec ause of [...] No hemodynamically significant lesion. 2013-11-23 CLINICAL HISTORY:Bleeding. [facility] 19:29:02-00:00 Sex: M. : 1965. TECHNIQUE: Axial scans were performed through the head with axial dataset following bolus intravenous injection of 50 cc of Visipaque including multiplanar computer-generated MIP reformations. 3-D imagi ng was unable to be performed. Total Dose(DLP): 2016 mGy-cm. CTA brain: Large right-sided hemorrhage s with edema and mass effect noted on the data network architect series. Visualization is limited bec ause of [...] No hemodynamically significant lesion. 2013-11-23 CLINICAL HISTORY:Bleeding. [facility] 19:29:02-00:00 Sex: M. : 1965. TECHNIQUE: Axial scans were performed through the head with axial dataset following bolus intravenous injection of 50 cc of Visipaque including multiplanar computer-generated MIP reformations. 3-D imagi ng was unable to be performed. Total Dose(DLP): 2016 mGy-cm. CTA brain: Large right-sided hemorrhage s with edema and mass effect noted on the data network architect series. Visualization is limited bec ause of [...] significant lesion. 2013-11-23 Exam: Abdomen one view [facility] 13:23:26-00:00 History: Tube placement Comparison Study: [...] position . 2013-11-23 Exam: Abdomen one view [facility] 13:23:26-00:00 History: Tube placement Comparison Study: [...] position . 2013-11-23 Exam: Abdomen one view [facility] 13:23:26-00:00 History: Tube placement Comparison Study: [...] position . 2013-11-23 Exam: Abdomen one view [facility] 13:23:26-00:00 History: Tube placement Comparison Study: [...] s atisfactory position . 2013-11-22 CLINICAL HISTORY:Bleeding. [facility] 20:32:41-00:00 Sex: M. : 1965. TECHNIQUE: Axial [...] probable small intraventricular rupture. 2013-11-22 CLINICAL HISTORY:Bleeding. [facility] 20:32:41-00:00 Sex: M. : 1965. TECHNIQUE: Axial [...] probable small intraventricular rupture. 2013-11-22 CLINICAL HISTORY:Bleeding. [facility] 20:32:41-00:00 Sex: M. : 1965. TECHNIQUE: Axial [...] probable small intraventricular rupture. 2013-11-22 CLINICAL HISTORY:Bleeding. [facility] 20:32:41-00:00 Sex: M. : 1965. TECHNIQUE: Axial [...] edema and probable small intraventricular rupture. 2013-11-[address] [facility] 20:15:09-00:00 CLINICAL HISTORY: Renal insufficiency. Sex: M. [...] . IMPRESSION: 1. Negative renal ultrasound. 2013-11-[address] [facility] 20:15:09-00:00 CLINICAL HISTORY: Renal insufficiency. Sex: M. [...] . IMPRESSION: 1. Negative renal ultrasound. 2013-11-[address] [facility] 20:15:09-00:00 CLINICAL HISTORY: Renal insufficiency. Sex: M. [...] . IMPRESSION: 1. Negative renal ultrasound. 2013-11-[address] [facility] 20:15:09-00:00 CLINICAL HISTORY: Renal insufficiency. Sex: M. [...] 1. Negative renal ultrasound. 2013-11-22 [facility] 13:14:52-00:00 COMPARISON: Chest, single view [...] No focal consolidation seen. 2013-11-22 STUDY: Chest [address] [place] [address] 13:14:52-00:00 COMPARISON: Chest, single view dated 01/08/2012. [...] No focal consolidation seen. 2013-11-22 STUDY: Chest [address] [place] [address] 13:14:52-00:00 COMPARISON: Chest, single view dated 01/08/2012. [...] No focal consolidation seen. 2013-11-22 STUDY: Chest [address] [place] [address] 13:14:52-00:00 COMPARISON: Chest, single view dated 01/08/2012. [...] 2013-11-22 CT of the head without contrast [facility] 12:53:43-00:00 Comparison:None Exam Dose Length Product: 1002 [...] 2013-11-22 CT of the head without contrast [facility] 12:53:43-00:00 Comparison:None Exam Dose Length Product: 1002 [...] 2013-11-22 CT of the head without contrast [facility] 12:53:43-00:00 Comparison:None Exam Dose Length Product: 1002 [...] 2013-11-22 CT of the head without contrast [facility] 12:53:43-00:00 Comparison:None Exam Dose Length Product: 1002 [...]
[2023-05-28 16:22] LABS: Absolute Lymphocytes (CBC) 0.8 K/uL (0.7-4.9); Lymphocytes % 16.5 % (15.3-44.8); MCV 94.9 fL (80-100); MPV 9.4 fL (7.6-11.3); Platelets 151 thou/uL (152-406); RBC Red Blood Cell Count 3.48 M/uL (4.33-5.43)
[2023-05-28 16:25] LABS: Urine Bacteria <20 /HPF (<20); Urine Bilirubin NEGATIVE (Negative); Urine Blood Trace (Negative); Urine Clarity Clear (Clear); Urine Color Light-Yellow (Yellow); Urine Glucose 1+ (Negative); Urine Protein 1+ (Negative); Urine RBC <5 /HPF (None Seen); Urine Urobilinogen Normal (Normal)
[2023-05-28] MEDS ORDERED: NA CHLORIDE 0.9% 500 ML ONE (16:32)
--- NOTE | 2023-05-28 16:43 | RAD REPORT ---
EXAM DESCRIPTION: [place] Single View05/28/2023 4:24 pm CLINICAL HISTORY: Chest pain COMPARISON: May 10, 2023 FINDINGS: The lungs appear clear of acute infiltrate. The heart is normal size IMPRESSION: No acute abnormalities displayed
[2023-05-28 16:56] LABS: Protime INR 1.43
[2023-05-28 17:13] LABS: Potassium 3.1 mEq/L (3.5-5.1)
[2023-05-28 17:22] LABS: Troponin High Sensitivity 66.6 pg/mL (<58.9)
--- NOTE | 2023-05-28 18:13 | RAD REPORT ---
EXAM DESCRIPTION: CT - Chest Abd Pelvis Wo Con - 05/28/2023 5:57 pm CLINICAL HISTORY: Chest, back and abdominal pain COMPARISON: none TECHNIQUE: Computed axial tomography of the chest, abdomen and pelvis was obtained. Oral contrast wa s given. IV contrast was not requested. All CT scans are performed using dose optimization technique as appropriate and may include automated exposure control or mA/KV adjustment according to patient size. FINDINGS: The evaluation of mediastinum, shanta, vessels and solid organs is limited secondary to the lack of IV contrast administration The lungs are clear Mild patchy ground-glass opacities left lower lobe. Mild patchy ground-glass opacities right upper and right lower lobes. No mediastinal or hilar lymphadenopathy is seen. A pleural effusion is not present. A pericardial effusion is not seen. The liver, spleen, pancreas, and adrenals appear appear grossly normal Small kidneys with cortical thinning consistent with chronic disease. There is no evidence of diverticulitis. Normal appendix Small bilateral inguinal hernias contain fat IMPRESSION: Mild bilateral patchy ground-glass opacities within the lungs right greater than left p robably indicating pneumonia or pneumonitis
[2023-05-28] MEDS ORDERED: CEFTRIAXONE 1000 MG/VIAL ONE (18:39)
[2023-05-28] MEDS ORDERED: NA CHLORIDE 0.9% 250 ML ONE (18:39)
[2023-05-28] MEDS ORDERED: AZITHROMYCIN 500 MG INJ IVPB ONE (18:39)
[2023-05-28] MEDS ORDERED: ACETAMINOPHEN 500 MG TAB PO PRN (19:04)
[2023-05-28] MEDS ORDERED: ONDANSETRON 4 MG/2 ML VIAL IV PRN (19:04)
--- NOTE | 2023-05-28 19:18 | EDPHYS ---
Physician Documentation [facility] Name: Ben Otto Age: 57 yrs Sex: Male : 1965 Arrival Date: 05/28/2023 Time: 15:41 Bed 18 Private MD: ED Physician Domo Plummer HPI: 05/28 16:05 This 57 yrs old Male presents to ER via EMS with complaints of Blood Pressure cp Problem. 16:05 Patient is a 57 y/o male who presents to ED from [facility] dialysis clinic after reported cp low blood pressure in the 80's and elevated HR concerning for a-fib. Patient reports PMHX of A-fib, takes metoprolol blood pressure medication. Denies blood thinner. Historical: - Allergies: 16:03 No Known Allergies; ld1 - PMHx: 16:03 dialysis; ld1 16:04 CVA; Hypertensive disorder; ld1 - Immunization history:: Adult Immunizations up to date. - Social history:: Smoking status: Patient denies any tobacco usage or history of. Patient/guardian denies using alcohol. ROS: 16:10 Constitutional: Negative for fever. cp 16:10 Eyes: Negative for injury, pain, redness, and discharge. cp 16:10 ENT: Positive for sore throat, Negative for drainage from ear(s), ear pain, difficulty swallowing, difficulty handling secretions. 16:10 Cardiovascular: Negative for chest pain, edema. 16:10 Respiratory: Positive for cough, with no reported sputum, Negative for wheezing. 16:10 Abdomen/GI: Negative for abdominal pain, vomiting, diarrhea, constipation, black/tarry stool, rectal bleeding. 16:10 Skin: Negative for cellulitis, rash. 16:10 Neuro: Positive for weakness, Negative for altered mental status, loss of consciousness, syncope. 16:10 All other systems are negative. Exam: 16:02 ECG was reviewed by the Attending Physician. cp 16:15 Constitutional: The patient appears in no acute distress, alert, awake, cp non-diaphoretic, non-toxic, well developed, well nourished. 16:15 Head/Face: Normocephalic, atraumatic. cp 16:15 Eyes: Periorbital structures: appear normal, Pupils: equal, round, and reactive to light and accomodation, Extraocular movements: intact throughout, Conjunctiva: normal, no exudate, no injection, Sclera: no appreciated abnormality, Lids and lashes: appear normal, bilaterally. 16:15 ENT: External ear(s): are unremarkable, Nose: is normal, Mouth: Lips: moist, Oral mucosa: pink and intact, moist, Posterior pharynx: is normal, airway is patent, no erythema, no exudate. 16:15 Neck: ROM/movement: is normal, is supple, without pain, no range of motions limitations, no meningismus. 16:15 Chest/axilla: Inspection: normal, Palpation: is normal, no crepitus, no tenderness. 16:15 Cardiovascular: Rate: tachycardic, Rhythm: regular, Edema: is not appreciated, JVD: is not appreciated. 16:15 Respiratory: the patient does not display signs of respiratory distress, Respirations: normal, no use of accessory muscles, no retractions, labored breathing, is not present, Breath sounds: are clear throughout, no decreased breath sounds, no stridor, no wheezing. 16:15 Abdomen/GI: Inspection: abdomen appears normal, Bowel sounds: active, all quadrants, Palpation: abdomen is soft and non-tender, in all quadrants. 16:15 Back: CVA tenderness, is absent. 16:15 Skin: cellulitis, is not appreciated, no rash present. 16:15 Neuro: Orientation: to person, place \T\ time. Mentation: is normal, Cerebellar function: Romberg testing is negative, Motor: moves all fours, strength is normal, Sensation: is normal. 17:02 ECG was reviewed by the Attending Physician. cp Vital Signs: 16:01 BP 118 / 103; Pulse 139; Resp 18; Temp 97.9(O); Pulse Ox 100% on R/A; Weight 89 kg; ld1 Height 5 ft. 6 in. ; Pain 0/10; 16:12 BP 104 / 80; Pulse 141; Resp 18; Pulse Ox 100% on R/A; ld1 17:42 BP 109 / 70; Pulse 64; Resp 18; Pulse Ox 97% on R/A; ld1 18:58 BP 127 / 77; Pulse 68; Resp 18; Pulse Ox 100% on R/A; ld1 16:01 Body Mass Index 31.67 (89.00 kg, 167.64 cm) ld1 16:01 Pain Scale: Adult ld1 MDM: 15:53 Patient medically screened. 18:45 Data reviewed: vital signs, nurses notes, lab test result(s), EKG, radiologic studies, cp CT scan, plain films, I have discussed the patient's presentation/case with the attending Emergency Department Physician; and as a result, I will admit patient. 19:00 Management of patient was discussed with the following: Primary Care Provider: DR Mandel.cp 19:00 I considered the following discharge prescriptions or medication management in the emergency department Medications were administered in the Emergency Department. See MAR. Independent interpretation of the following test(s) in the Emergency Department EKG: See my EKG interpretation above. Care significantly affected by the following chronic conditions: Hypertension, Chronic Kidney Disease. Counseling: I had a detailed discussion with the patient and/or guardian regarding the historical points, exam findings, and any diagnostic results supporting the discharge/admit diagnosis, lab results, radiology results, the need for further work-up and treatment in the hospital. Response to treatment: the patient's symptoms have markedly improved after treatment. 05/28 15:53 Order name: Basic Metabolic Panel; Complete Time: 17:53 05/28 17:26 Interpretation: Normal except: K 3.1; GLUC 113; BUN 19; CRE 4.81; GFR 13; CA 8.2. 05/28 15:53 Order name: CBC with Diff; Complete Time: 17:24 05/28 17:24 Interpretation: Normal except: RBC 3.48; HGB 11.2; HCT 33.0; PLT 151. 05/28 15:53 Order name: Magnesium; Complete Time: 17:53 05/28 15:53 Order name: NT PRO-BNP; Complete Time: 17:53 05/28 15:53 Order name: PT-INR; Complete Time: 17:24 05/28 15:53 Order name: Troponin HS; Complete Time: 17:53 05/28 17:26 Interpretation: Abnormal: Troponin HS 66.6. 05/28 15:53 Order name: COVID-19 SARS RT PCR; Complete Time: 17:25 05/28 17:43 Interpretation: Reviewed. 05/28 15:53 Order name: Urinalysis W/Microscopic; Complete Time: 17:24 05/28 15:53 Order name: Lactate w/ 2H reflex if indic.; Complete Time: 17:24 /30 16:15 Order name: Blood Culture Adult (2) cp / 19:12 Order name: Basic Metabolic Panel [facility] 05/28 19:12 Order name: Basic Metabolic Panel [facility] 05/28 19:12 Order name: CBC with Automated Diff [facility] 05/28 19:12 Order name: CBC with Automated Diff [facility] 05/28 19:12 Order name: Lipid Profile [facility] 05/28 19:12 Order name: Lipid Profile [facility] 05/28 19:12 Order name: Magnesium [facility] 05/28 19:12 Order name: Magnesium [facility] 05/28 19:12 Order name: Troponin High Sensitivity [facility] 05/28 19:12 Order name: Troponin High Sensitivity [facility] 05/28 19:12 Order name: Troponin High Sensitivity [facility] 05/28 19:13 Order name: Lactate w/ 2H reflex if indic. cp 05/28 15:53 Order name: XRAY Chest (1 view); Complete Time: 17:24 05/28 17:25 Order name: CT Chest Abdomen Pelvis W/O Contrast; Complete Time: 18:16 30 18:17 Interpretation: Report reviewed. 05/28 15:53 Order name: EKG; Complete Time: 15:54 05/28 19:12 Order name: Respiratory Therapy Consult [facility] 05/28 15:53 Order name: Cardiac monitoring; Complete Time: 16:00 05/28 15:53 Order name: EKG - Nurse/Tech; Complete Time: 16:00 05/28 15:53 Order name: IV Saline Lock; Complete Time: 16:00 05/28 15:53 Order name: Labs collected and sent; Complete Time: 16:12 05/28 15:53 Order name: O2 Per Protocol; Complete Time: 16:00 05/28 15:53 Order name: O2 Sat Monitoring; Complete Time: 16:01 30 16:40 Order name: EKG Strip; Complete Time: 16:56 ld1 EC:02 Rate is 139 beats/min. Rhythm is regular. QRS interval is normal. QT interval is cp normal. T waves are Inverted in lead aVR. Interpreted by me. Reviewed by me. 17:02 Rate is 69 beats/min. Rhythm is regular. HI interval is prolonged at 208 msec. QRS cp interval is normal. QT interval is normal. T waves are Inverted in lead aVR. Interpreted by me. Reviewed by me. Administered Medications: 16:13 CANCELLED (Physician Discretion): Metoprolol IVP 5 mg IVP once; Hold for SBP <100 or HR cp <60. 16:25 Drug: NS 0.9% IV 250 ml Route: IV; Rate: bolus; Site: right antecubital; ld1 19:00 Follow up: IV Status: Completed infusion iw 18:31 Drug: Rocephin IV 1 grams Route: IV; Rate: calculated rate; Site: right antecubital; ld1 19:00 Follow up: IV Status: Completed infusion iw 18:37 Drug: Zithromax IVPB 500 mg Route: IVPB; Infused Over: 1 hrs; Site: right antecubital; ld1 19:35 Follow up: IV Status: Completed infusion iw Disposition Summary: 05/28/23 19:18 Hospitalization Ordered Hospitalization Status: Observation cp Provider: Rudi Mandel cp Location: Telemetry/MedSurg (observation) cp Condition: Stable cp Problem: new cp Symptoms: have improved cp Bed/Room Type: Standard cp Room Assignment: 417(05/28/23 19:48) cg Diagnosis - Pneumonia due to SARS-associated coronavirus cp Forms: - Medication Reconciliation Form cp - SBAR form cp - Leadership Thank You Letter cp Signatures: Dispatcher [employer] EDMS Manuel Nguyen PA PA cp Shilpa Montanez RN RN Kiah Alba RN RN 1 Francine Virk RN Corrections: (The following items were deleted from the chart) 16:03 16:03 PMHx: None; ld1 ld1 16:13 16:08 Metoprolol IVP 5 mg IVP once; Hold for SBP <100 or HR <60. ordered. cp cp 19:48 19:18 cp cg
--- NOTE | 2023-05-28 19:18 | ER ---
Nurse's Notes [facility] Name: Ben Otto Age: 57 yrs Sex: Male : 1965 Arrival Date: 05/28/2023 Time: 15:41 Bed 18 Private MD: Diagnosis: Pneumonia due to SARS-associated coronavirus Presentation: 05/28 16:01 Chief complaint: EMS states: toned out to [facility] dialysis for low blood pressure and ld1 high heart rate. EMS reports EKG afib RVR. Coronavirus screen: At this time, the client does not indicate any symptoms associated with coronavirus-19. Ebola Screen: No symptoms or risks identified at this time. Initial Sepsis Screen: Does the patient meet any 2 criteria? No. Patient's initial sepsis screen is negative. Does the patient have a suspected source of infection? No. Patient's initial sepsis screen is negative. Risk Assessment: Do you want to hurt yourself or someone else? Patient reports no desire to harm self or others. Onset of symptoms was May 28, 2023. 16:01 Method Of Arrival: EMS: [facility] ld1 16:01 Acuity: JEREMY 2 ld1 Triage Assessment: 16:03 General: Appears in no apparent distress. comfortable, Behavior is calm, cooperative, ld1 appropriate for age. Pain: Denies pain. EENT: No signs and/or symptoms were reported regarding the EENT system. Neuro: Level of Consciousness is awake, alert, obeys commands, Oriented to person, place, time, situation. Cardiovascular: Capillary refill < 3 seconds Patient's skin is warm and dry. Rhythm is atrial fibrillation with rapid ventricular response. Respiratory: Airway is patent Respiratory effort is even, unlabored. GI: Abdomen is round non-distended. : No signs and/or symptoms were reported regarding the genitourinary system. Derm: No signs and/or symptoms reported regarding the dermatologic system. Musculoskeletal: No signs and/or symptoms reported regarding the musculoskeletal system. Historical: - Allergies: 16:03 No Known Allergies; ld1 - PMHx: 16:03 dialysis; ld1 16:04 CVA; Hypertensive disorder; ld1 - Immunization history:: Adult Immunizations up to date. - Social history:: Smoking status: Patient denies any tobacco usage or history of. Patient/guardian denies using alcohol. Screenin:12 [facility] ED Fall Risk Assessment (Adult) History of falling in the last 3 months, ld1 including since admission No falls in past 3 months (0 pts). Abuse screen: Denies threats or abuse. Denies injuries from another. Nutritional screening: No deficits noted. Tuberculosis screening: No symptoms or risk factors identified. Assessment: 16:12 Reassessment: See triage assessment. ld1 19:13 Reassessment: Patient appears in no apparent distress at this time. Patient and/or iw family updated on plan of care and expected duration. Pain level reassessed. Patient is alert, oriented x 3, equal unlabored respirations, skin warm/dry/pink. VSS, pt in NSR 68 bpm, updated on POC, requesting water. Vital Signs: 16:01 BP 118 / 103; Pulse 139; Resp 18; Temp 97.9(O); Pulse Ox 100% on R/A; Weight 89 kg; ld1 Height 5 ft. 6 in. ; Pain 0/10; 16:12 BP 104 / 80; Pulse 141; Resp 18; Pulse Ox 100% on R/A; ld1 17:42 BP 109 / 70; Pulse 64; Resp 18; Pulse Ox 97% on R/A; ld1 18:58 BP 127 / 77; Pulse 68; Resp 18; Pulse Ox 100% on R/A; ld1 16:01 Body Mass Index 31.67 (89.00 kg, 167.64 cm) ld1 16:01 Pain Scale: Adult ld1 ED Course: 15:50 Patient arrived in ED. ap3 15:50 Manuel Nguyen PA is PHCP. cp 15:50 Domo Plummer MD is Attending Physician. cp 16:00 Kiah Alba, JOBY is Primary Nurse. ld1 16:03 Triage completed. ld1 16:03 Arm band placed on right wrist. ld1 16:04 No provider procedures requiring assistance completed. Maintain EMS IV. Dressing ld1 intact. Good blood return noted. Site clean \T\ dry. Gauge \T\ site: 22G RAC. 16:12 Patient has correct armband on for positive identification. Placed in gown. Bed in low ld1 position. Call light in reach. Side rails up X2. quality assurance monitor on. Pulse ox on. NIBP on. Door closed. Noise minimized. Warm blanket given. 16:12 Lactate w/ 2H reflex if indic. Sent. ld1 16:12 Urinalysis W/Microscopic Sent. ld1 16:12 COVID-19 SARS RT PCR Sent. ld1 16:25 Blood Culture Adult (2) Sent. ld1 16:26 XRAY Chest (1 view) In Process Unspecified. EDMS 17:22 Notified Nurse Practitioner and/or Physician Retail Marketing Coordinator of a critical lab result(s), hb TROP 66.6. 17:59 CT Chest Abdomen Pelvis W/O Contrast In Process Unspecified. EDMS 19:17 Primary Nurse role handed off by Kiah Alba, JOBY iw 19:17 Francine Virk RN is Primary Nurse. iw 19:17 Rudi Mandel MD is Hospitalizing Provider. cp 20:40 Patient admitted, IV remains in place. iw Administered Medications: 16:13 CANCELLED (Physician Discretion): Metoprolol IVP 5 mg IVP once; Hold for SBP <100 or HR cp <60. 16:25 Drug: NS 0.9% IV 250 ml Route: IV; Rate: bolus; Site: right antecubital; ld1 19:00 Follow up: IV Status: Completed infusion iw 18:31 Drug: Rocephin IV 1 grams Route: IV; Rate: calculated rate; Site: right antecubital; ld1 19:00 Follow up: IV Status: Completed infusion iw 18:37 Drug: Zithromax IVPB 500 mg Route: IVPB; Infused Over: 1 hrs; Site: right antecubital; ld1 19:35 Follow up: IV Status: Completed infusion iw Medication: 16:12 VIS not applicable for this client. ld1 Outcome: 19:18 Decision to Hospitalize by Provider. cp 20:41 Admitted to Med/surg iw 20:41 Condition: good 20:41 Discharge instructions given to Instructed on the need for admit. 20:42 Patient left the ED. iw Signatures: Dispatcher [employer] EDFrancine Mota RN RN iw Manuel Nguyen PA PA cp Danica Martínez RN RN hb Prokisch, Amanda, RN RN ap3 Kiah Alba RN RN ld1 Corrections: (The following items were deleted from the chart) 16:03 16:03 PMHx: None; ld1 ld1
[2023-05-28 20:55] VITALS: O2SAT 100
[2023-05-28 20:57] VITALS: BMI 30.7
[2023-05-29 02:28] LABS: Absolute Lymphocytes (CBC) 1.1 K/uL (0.7-4.9); Hematocrit 29.6 % (39.6-49.0); Lymphocytes % 26.7 % (15.3-44.8); MCV 94.3 fL (80-100); Platelets 113 thou/uL (152-406); RBC Red Blood Cell Count 3.14 M/uL (4.33-5.43)
[2023-05-29 02:58] LABS: Potassium 3.3 mEq/L (3.5-5.1)
[2023-05-29 04:45] VITALS: BP 135/78; TEMP 97
--- NOTE | 2023-05-29 08:28 | P.SSS ---
Patient History Date of Service: 05/29/23 Primary Care Provider: Ministerio Reason for admission: covid pneumonia History of Present Illness: Patient of mine with a past medical history of ESRD, HTN and atrial fib. He had some tachycardia and hypotension during dialysis. The patient was sent to the ER. Tested positive for covid. The patient had mild ground glass opacities in the basilar lobes. This was on CT. Not on Chest xray. The patient has no respiratory distress. He is walking this morning to the bathroom without oxygen Allergies No Known Allergies Allergy (Unverified 11/19/22 21:39) Home Medications: Esomeprazole Mag Trihydrate [Nexium] 40 mg PO DAILY 05/11/23 Metoprolol Succinate [Toprol Xl*] 50 mg PO DAILY 05/11/23 Sevelamer Carbonate [Renvela*] 800 mg PO TID 05/11/23 Smz./Tmp. [Bactrim Ds 800 MG/160 MG] 1 tab PO BID 5 Days #10 tab 05/11/23 Nirmatrelvir/Ritonavir [Paxlovid 150-100 mg Pack (Eua)] 1 each PO BID 5 Days #10 tab 05/29/23 - Past Medical/Surgical History Has patient received pneumonia vaccine in the past: No Diabetic: No -: [place] Failure -: CVA-2013 -: Placement HD Access left upper arm - Family History Father -: Diabetes Mother -: Diabetes - Social History Smoking Status: Never smoker Alcohol use: No CD- Drugs: No Caffeine use: Yes Place of Residence: Home Review of Systems 10-point ROS is otherwise unremarkable Physical Examination - Vital Signs Temperature: 97.0 F Blood Pressure: 135/78 Pulse: 62 Respirations: 18 Pulse Ox (%): 96 - Physical Exam General: Alert, In no apparent distress HEENT: Atraumatic, PERRLA, Mucous membr. moist/pink, EOMI, Sclerae nonicteric Neck: Supple, 2+ carotid pulse no bruit, No LAD, Without JVD or thyroid abnormality Respiratory: Clear to auscultation bilaterally, Normal air movement Cardiovascular: Regular rate/rhythm, Normal S1 S2 Gastrointestinal: Normal bowel sounds, No tenderness Musculoskeletal: No tenderness Integumentary: No rashes Neurological: Normal gait, Normal speech, Normal strength at 5/5 x4 extr, Normal tone, Normal affect Lymphatics: No axilla or inguinal lymphadenopathy - Studies Laboratory Data (last 24 hrs) 05/28/23 05/28/23 05/28/23 16:45 16:45 16:10 WBC 5.00 Hgb 11.2 L Hct 33.0 L Plt Count 151 L PT 15.7 H INR 1.43 Sodium 139 Potassium 3.1 L BUN 19 H Creatinine 4.81 H Glucose 113 H Magnesium 2.0 - Diagnosis (Problem(s)) (1) COVID-19 Current Visit: Yes Status: Acute Plan: Patient is asymptomatic. The patient can be safely sent home on paxlovid 150/100mg po bid. Have discussed this with Dr. Schmidt. As he is asymptomatic. The patient can have outpatient dialysis with 6 feet distancing from other patients or on dialysis times for covid patients. (2) Atrial fibrillation with RVR Current Visit: No Status: Chronic Plan: continue metoprolol . Patient is stable at this time (3) ESRD (end stage renal disease) Current Visit: No Status: Chronic Plan: as above have discussed the patient with Dr. Schmidt. Will keep him till seen by Dr. Gardner (4) HTN (hypertension) Current Visit: No Status: Chronic Plan: restart home medications. Adjust as needed. Qualifiers: Hypertension type: primary hypertension Qualified Code(s): I10 - Essential (primary) hypertension - Disposition Disposition: ROUTINE DISCHARGE Condition: GOOD Diet: Renal Physician Review: Patient Assessed, Agree with Above Assessment and Plan Critical Care: No Time Spent Managing Pts Care (In Minutes): 40
[2023-05-29] MEDS ORDERED: ENOXAPARIN 30 MG/0.3 ML SQ SCH (09:00)
--- NOTE | 2023-05-29 12:04 | EKG ---
Test Date: 2023-05-28 Test Time: 16:55:50 Densitometrist: TASNEEM MEASUREMENT RESULTS: Intervals: Rate: 69 OK: 208 QRSD: 80 QT: 388 QTc: 415 [place]: P: 110 OK: 208 QRS: 73 T: 45 INTERPRETIVE STATEMENTS: Normal sinus rhythm Normal ECG Compared to ECG 05/28/2023 15:55:50 Supraventricular tachycardia no longer present ST (T wave) deviation no longer present T-wave abnormality no longer present Electronically Signed On 05-29-23 12:02:45 CDT by Charles Tracy
--- NOTE | 2023-05-29 12:05 | EKG ---
Test Date: 2023-05-28 Test Time: 15:55:50 Automobile Rental Agent: Karl SANTOS MEASUREMENT RESULTS: Intervals: Rate: 139 [place]: QRSD: 72 QT: 302 QTc: 459 [place]: P: [place]: QRS: 78 T: -4 INTERPRETIVE STATEMENTS: Supraventricular tachycardia Nonspecific ST abnormality Abnormal QRS-T angle, consider primary T wave abnormality Abnormal ECG Compared to ECG 05/10/2023 19:57:22 ST (T wave) deviation now present T-wave abnormality now present Sinus rhythm no longer present Electronically Signed On 05-29-23 12:03:27 CDT by Charles Tracy
== END 2023-05-29 12:05 | disposition home or self-care (01) ==
LOC: ER 15:41 → ERHOLD 20:14 → 4TH 20:24
PROVIDERS: ADMIT Internal Medicine; ATTEND Internal Medicine
DX: U07.1 COVID-19 (principal); J12.82 Pneumonia due to coronavirus disease 2019; I48.11 Longstanding persistent atrial fibrillation; I10 Essential (primary) hypertension; N18.6 End stage renal disease; Z99.2 Dependence on renal dialysis; Z86.73 Personal history of transient ischemic attack (TIA), and cerebral infarction without residual deficits
CPT/HCPCS: 36415; 71045; 71250; 74176; 80048; 80061; 81001; 83605; 83735; 83880; 84484; 85025; 85610; 87040; 87635; 93005; 96365; 96367; 99285; G0378; J0696; J1650; J7040; J7050

== ENCOUNTER 2023-07-04 08:33 | Emergency (ER) | payer OTHER ==
--- OUTSIDE RECORDS SUMMARY | 2023-07-04 09:17 | XMS REPORT | Continuity of Care Document ---
:1965 Author Organization [facility] [place] t Address [address] [place] [address] [place] [id number] Care Team Providers Name Role Phone PCP, PATIENT DOES NOT HAVE A Primary Care Physician Unavaila STEFANY Medel Attending Clinician Unavailable GERMAN PLUMMER Attending Clinician Unavailable German Plummer Attending Clinician REGAN MUKHERJEE Attending Clinician Unavailable BERONICA ZHOU Attending Clinician Unavailable Rosaline Brannon Attending Clinician Roberto Pratt MD Attending Clinician ROBERTO PRATT Attending Clinician Unavailable [place] CHANG Attending Clinician Unavailable [place] Chang MD Attending Clinician Elidia Kat MD Attending Clinician [phone] Vtc-Lab Attending Clinician Unavailable Polytechnic Registrar, Transplant Attending Clinician Unavailable Worker, Transplant Social Attending Clinician Unavailable Chase MORA, Owen Attending Clinician Renal, Transplant Class Attending Clinician Unavailable Jeromy Cannon Attending Clinician DR ELIUD MAY Attending Clinician Unavailable Sada Hurst Attending Clinician Romi Ritchie Attending Clinician Shun Roper Attending Clinician Stephanie Mg Attending Clinician Valeri Zarco Attending Clinician Stevenson Shira Attending Clinician DR PAUL BARFIELD Attending Clinician Unavailable Janak Ingram Attending Clinician Armond Moreland Attending Clinician Malorie Ahn Attending Clinician Eduin Tsai Attending Clinician Pancho Mireles Attending Clinician Mauricio Whitmore Attending Clinician Judy Calderon Attending Clinician STEFANY COTA Admitting Clinician Unavailable HANNA FRANK Admitting Clinician Unavailable Hanna Frank Admitting Clinician ROBERTO PRATT Admitting Clinician Unavailable DR ELIUD MAY Admitting Clinician Unavailable Shun Roper Admitting Clinician DR PAUL BARFIELD Admitting Clinician Unavailable Pancho Mireles Admitting Clinician Mauricio Whitmore Admitting Clinician Judy Calderon Admitting Clinician Payers Payer Name Policy Type Policy Number Effective Date Expiration Date S ource [employer] MEDICARE [id number] 2018 ADVANTAGE O 00:00:00 Problems Condition Condition Condition Status Onset Resolution Last Treating Co mments Source Name Details Category Date Date Treatment Clinician Date COMPLICATI COMPLICAT Diagnosis Active 2022-12-20 Memoria ONS, IONS, 12-02 21:47:00 l DIALYSIS, DIALYSIS, 00:00: Herm elidia CATHETER, CATHETER, 00 MECHA MECHA Active 12/02/2022 [facility] COMPLICATI COMPLICAT Diagnosis Active 2022-12-04 Memoria ON OF AV ION OF AV 12-02 08:14:00 l FISTULA FISTULA 00:00: [place] Active 00 12/02/2022 [place] [facility] SI Active Diagnosis Active 2018-092019-08-19 Memoria 08/19/201910-19 14:02:00 l Sugar 00:00: [place] 00 NEW NEW Diagnosis Active 2019-06-22 Mem oria EVALUATION EVALUATION 03-18 07:29:00 l Active 00:00: Momo 03/18/2019 00 [facility] G81.92 G81.92 Diagnosis Active 2019-01-27 Me moria Active 01-27 09:05:00 l 01/27/2019 07:00: Luisito walsh [facility] 00 COLON COLON Diagnosis Active 2017-092019-01-04 Mem oria CANCER CANCER 11-25 16:49:00 l SCREENING- SCREENING- 00:00: He elaann Z12.11 Z12.11 00 Active 09/24/2018 [place] I63.9, I63.9, Diagnosis Active 2017-092019-01-10 [place] moria N18.6 N18.6 0 16:23:00 l Active 07:00: Momo 07/16/2018 00 [facility] N18.6 N18.6 Diagnosis Active 2018-03-02 Mem oria Active 02-18 07:38:00 l 02/18/2018 00:00: Luisito walsh 00 [facility] N/A N/A Diagnosis Active 2018-03-02 Mem oria Active 02-18 07:38:00 l 02/18/2018 00:00: Luisito walsh 00 [facility] EVAL EVAL Diagnosis Active 2018-03-22 Mem oria Active 02-04 11:30:00 l 02/04/2018 00:00: Luisito walsh [facility] 00 PA RENAL PA RENAL Diagnosis Active 2018-01-27 Joséoria ACCT FOR ACCT FOR 01-27 13:17:00 l F/C NOTES F/C NOTES 08:00: Herm elidia ONLY ONLY 00 Active 01/27/2018 [facility] FALL FALL Diagnosis Active 2018-04-09 Mem oria Active 01-27 14:03:00 l 01/27/2018 00:00: Luisito walsh [address] N18.16 N18.16 Diagnosis Active 2017-11-14 Me moria Active 10-29 10:52:00 l 10/29/2017 00:00: Luisito walsh [address] T82.390A/N T82.390A/ Diagnosis Active 2017-06-26 Memoria 18.6 N18.6 9-18 07:13:00 l Active 00:00: Momo 06/16/2017 00 [facility] INTRACRANI INTRACRAN Diagnosis Active 2013-11-25 Memoria AL IAL 11-22 15:29:00 l HEMORRHAGE HEMORRHAGE 00:00: He rmann Active 11/22/2013 [facility] OTHER OTHER Diagnosis Active 2013-11-22 Mem oria Active 11-22 13:18:00 l 11/22/2013 00:00: Luisito walsh [address] 719.4 - 719.4 - Diagnosis Active 2013-02-01 Memoria PAIN IN PAIN IN -18 19:45:00 l JOINT JOINT 00:01: Momo Active 00 12/14/[address] [facility] KNEE PAIN KNEE PAIN Diagnosis Active 2012-11-03 Memoria Active 11-03 09:25:00 l 11/03/2012 07:00: Luisito walsh [address] SWOLLEN SWOLLEN Diagnosis Active 2012-02-14 Memoria FACE FACE 4-10 09:39:00 l Active 05:00: Momo 01/07/2012 00 [facility] End stage End stage Problem Active 2018-04-09 Memoria renal renal 14:34:12 l disease disease Momo (disorder) (disorder) Active Problem 04/09/2018 [facility], [facility] [place] Dependence Dependenc Problem Active 2018-04-09 Memoria on renal e on renal 14:34:12 l dialysis dialysis Luisito walsh (finding) (finding) Active Problem 04/09/2018 [facility], [facility] [place] Knee pain Knee pain Problem Active 2018-04-09 Memoria (finding) (finding) 14:34:12 l Active [place] Problem 04/09/2018 [facility], [facility] [place] Asthenia Asthenia Problem Active 2017-09-04 Memoria (finding) (finding) 03:33:54 l Active [place] Problem 09/04/2017 left side Medical Group,[facility], [facility] Dependence Dependenc Problem Active 2022-12-16 Memoria on e on 23:09:33 l hemodialys hemodialys He rmann is due to is due to end stage end stage renal renal disease disease (finding) (finding) Active Problem 12/16/2022 [facility], [facility], [facility] History of History Problem Active 2022-12-16 Memoria adenomatou of 23:09:33 l s polyp of adenomatou He rmann colon s polyp of (situation colon ) (situation ) Active Problem 12/16/2022 [facility] History of History Problem Active 2022-12-16 Memoria - CVA of - CVA 23:09:33 l (context-d (context-d He rmann ependent ependent category) category) Active Problem 12/16/2022 [facility], [facility] Hypertensi Hypertens Problem Active 2022-12-16 Memoria ve babs 23:09:33 l disorder, disorder, Herm elidia systemic systemic arterial arterial (disorder) (disorder) Active Problem 12/16/2022 [facility], [facility], [facility] Left Left Problem Active 2022-12-16 Memor ia hemiparesi hemiparesi 23:09:33 l s s [place] (disorder) (disorder) Active Problem 12/16/2022 [facility], [facility], [facility] Obesity Obesity Problem Active 2022-12-16 Me moria (disorder) (disorder) 23:09:33 l Active Momo Problem 12/16/2022 [facility], [facility], 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 02/19/2018 [facility] Hyperlipid Hyperlipi Problem 2018-02-19 Memoria emia, demia, 12:05:44 l unspecifie unspecifie He rmann d d 02/19/2018 [facility] Personal Personal Problem 2018-02-19 Memoria history of history of 12:05:44 l other other [place] infectious infectious and and parasitic parasitic diseases diseases 02/19/2018 [facility] Other Other Problem 2019-03-11 Memor ia speech and speech and 11:15:31 l language language Luisito walsh deficits deficits following following cerebral cerebral infarction infarction 03/11/2019 [facility] 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 12:31: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 Momo transverse transverse colon colon 04/13/2019 [place] Polyp of Polyp of Problem 2019-04-13 Memoria colon colon 12:31:49 l 04/13/2019 Luisito n [place] Diverticul Diverticu Problem 2019-04-13 Memoria osis of losis of 12:31:49 l large large Momo intestine intestine without without perforatio perforatio n or n or abscess abscess without without bleeding bleeding 04/13/2019 [place] First First Problem 2019-04-13 [place] jessi degree degree 12:31:49 l hemorrhoid hemorrhoid He rmann s s 04/13/2019 [place] Hypertensi Hypertens Problem 2019-04-13 Memoria ve chronic babs 12:31:49 l kidney chronic Momo disease kidney with stage disease 5 chronic with stage kidney 5 chronic disease or kidney end stage disease or renal end stage disease renal disease 04/13/2019 [facility], [place] Hemiplegia Hemiplegi Problem 2019-04-13 Memoria and a and 12:31:49 l hemiparesi hemiparesi He curt s s following following cerebral cerebral infarction infarction affecting affecting left left non-domina non-domina nt side nt side 04/13/2019 [facility], [place] Obesity, Obesity, Problem 2019-04-13 Memoria unspecifie unspecifie 12:31:49 l d d [place] 04/13/2019 [facility], [place] Gastro-eso Problem 2019-04-13 M emoria phageal Gastro-eso 12:31:49 l reflux phageal Momo disease reflux without disease esophagiti without s esophagiti s 04/13/2019 [place] Dependence Dependenc Problem 2019-04-13 Memoria on renal e on renal 12:31:49 l dialysis dialysis Luisito walsh 04/13/2019 [facility], [facility], [place] 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) (current) [facility] drug therapy therapy 04/13/2019 [place] Body mass Body mass Problem 2019-04-13 Memoria index index 12:31:49 l (BMI) (BMI) Momo 34.0-34.9, 34.0-34.9, adult adult 04/13/2019 [place] 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 11:27:14 l mellitus mellitus Luisito n 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 01/04/2019 [facility] Hypertensi Hypertens Problem 2019-01-04 Memoria ve heart babs heart 11:27:14 l and and Momo chronic chronic kidney kidney disease disease without without heart heart failure, failure, with stage with stage 5 chronic 5 chronic kidney kidney disease, disease, or end or end stage stage renal renal disease disease 01/04/2019 [facility] Abrasion, Abrasion, Problem 2018-02-06 Memoria left knee, left knee, 01:28:35 l initial initial [place] encounter encounter 02/06/2018 [facility] Fall from Fall from Problem 2018-02-06 Memoria non-moving non-moving 01:28:35 l wheelchair wheelchair Mingo curt , initial , initial encounter encounter 02/06/2018 [facility] Personal Personal Problem 2019-02-14 Memoria history of history of 11:52:48 l transient transient Herm elidia ischemic ischemic attack attack (TIA), and (TIA), and cerebral cerebral infarction infarction without without residual residual deficits deficits 02/14/2019 [facility], [place] HTN - HTN - Problem Resolve 2012-11-05 T[place] jessi Hypertensi Hypertensi d 14:11:00 l on on [place] Resolved Problem 11/05/2012 [facility] Anemia Anemia Problem Resolve 2022-12-09 Mem oria (disorder) (disorder) d 15:15:22 l Resolved [place] Problem 12/09/2022 [facility], [facility], [facility] Gastroesop Gastroeso Problem Resolve 2022-12-09 Memoria hageal phageal d 15:15:22 l reflux reflux Momo disease disease (disorder) (disorder) Resolved Problem 12/09/2022 [facility], [facility], [facility] Motion Motion Problem Resolve 2022-12-09 Mem oria sickness sickness d 15:15:22 l (disorder) (disorder) He rmann Resolved Problem 12/09/2022 [facility], [facility], 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 Urinary Urinary Problem Resolve 2022-12-09 M emoria tract tract d 15:15:22 l infectious infectious He rmann disease disease (disorder) (disorder) Resolved Problem 12/09/2022 [facility], [facility], [facility] Diabetes Diabetes Problem Resolve 2013-11-28 Memoria mellitus mellitus d 22:32:01 l (disorder) (disorder) He rmann Resolved Problem 11/28/2013 [facility] No known No known Disease Unive rs active active ity of problems problems [facility] Cerebrovas Cerebrova Problem Resolve 2022-12-09 2022-12-09 Memoria cular scular d 11-23 15:15:22 15:15:22 l accident accident 00:00: Luisito walsh (disorder) (disorder) 00 Resolved 11/23/2013 Problem 12/09/2022 [facility], [facility], [place] History of Past Illness Condition Condition Condition Status Onset Resolution Last Treating Co mments Source Name Details Category Date Date Treatment Clinician Date End stage End stage Problem 2018-092019-08-22 2019-08-22 Memoria renal renal 10-20 22:46:11 22:46:11 l disease disease 18:00: Momo 08/20/2019 00 08/22/2019 [facility], [facility], [place] Suicidal Suicidal Problem 2018-092019-08-22 2019-08-22 Memoria ideations ideations 10-20 22:46:11 22:46:11 l 08/20/2019 18:00: Luisito walsh 08/22/2019 00 [place] Encounter Problem 2019-04-13 2019-04-13 Memoria for Encounter 10-02 12:31:49 12:31:49 l screening for 05:06: Momo for screening 02 malignant for neoplasm malignant of colon neoplasm of colon 10/02/2018 04/13/2019 [place] Other Other Problem 2017-092019-03-11 2019-03-11 M emoria symptoms symptoms 10-30 11:15:31 11:15:31 l and signs and signs 11:35: Herm elidia involving involving 10 cognitive cognitive functions functions following following cerebral cerebral infarction infarction 8 03/11/2019 [facility] Hypotensio Hypotensi Problem 2017-092019-02-14 2019-02-14 Mathieu walsh, on, 10-01 11:52:48 11:52:48 l unspecifie unspecifie 04:15: Mingo acosta 02 08/01/2018 02/14/2019 [place] Poisoning Problem 2017-092019-02-14 2019-02-14 Memoria by Poisoning 0- 11:52:48 11:52:48 l unspecifie by 05:00: Luisito n d drugs, unspecifie 00 medicament d drugs, s and medicament biological s and substances biological , substances accidental , (unintenti accidental onal), (unintenti initial onal), encounter initial encounter 07/28/2018 9 [place] Stenosis Stenosis Problem 2017-2018-04-09 2018-04-09 Memoria of of 01-21 14:34:12 14:34:12 l vascular vascular 03:32: Luisito n prosthetic prosthetic 44 devices, devices, implants implants and and grafts, grafts, initial initial encounter encounter 01/21/2018 04/09/2018 [place] Essential Essential Problem 2018-02-27 2018-02-27 Memoria (primary) (primary) 02-24 02:54:03 02:54:03 l hypertensi hypertensi 05:00: He curt on on 02/24/2018 02/27/2018 [place] Pain in Pain in Problem 2018-02-06 2018-02-06 Memoria unspecifie unspecifie 01-27 01:28:35 01:28:35 l d knee d knee 05:00: Momo 01/27/2018 00 02/06/2018 [facility] Unspecifie Unspecifi Problem 2017-05-12 2017-05-12 Memoria d ed 05-09 05:31:02 05:31:02 l complicati complicati 05:00: Mingo elias on of on of 00 cardiac cardiac and and vascular vascular prosthetic prosthetic device, device, implant implant and graft, and graft, initial initial encounter encounter 05/09/2017 05/12/2017 [place] Allergies, Adverse Reactions, Alerts Allergy Allergy Status [...] martín galvez Active Memori a h h l Momo No Known No Known Active Memori a Medicati Medicati l on on Momo terry s Social History Social Habit Start Date Stop Date Quantity Comments Source Exposure to 2022-11-22 2022-12-02 Not sure [facility] SARS-CoV-2 (event) 00:00:00 11:38:00 Medica l Branch Social History 2018-07-28 2018-07-28 [facility] ele 18:58:22 18:58:22 Sex Ass[birth year] [facility] 00:00:00 00:00:00 Medical Branch Smoking Status [...] 30 tab, 0 coated Refill(s), tablet Pharmacy: [id number], 170.18, cm, 12/02/22 20:25:00 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, Height, 91.364, kg, 12/02/22 20:25:00 [employer]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, Weight Vitamin C Yes 500 mg = 1 Me moria 500 mg oral 3-18 tab, PO, l tablet 16:56: Daily, # [place] 00 30 tab, 0 Refill(s), Pharmacy: [id number], 170.18, cm, 12/02/22 20:25:00 [employer]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, Height, 91.364, kg, 12/02/22 20:25:00 ETH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, Weight ferrous 0 Yes 325 mg = 1 [place] jessi sulfate 325 3-18 tab, PO, l mg oral 16:56: Daily, # Luisito n enteric 00 30 tab, 0 coated Refill(s), tablet Pharmacy: [id number], 170.18, cm, 12/02/22 20:25:00 ETH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, Height, 91.364, kg, 12/02/22 20:25:00 ETH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, Weight Vitamin C Yes 500 mg = 1 Me moria 500 mg oral 3-18 tab, PO, l tablet 16:56: Daily, # Momo 00 30 tab, 0 Refill(s), Pharmacy: [id number], 170.18, cm, 12/02/22 20:25:00 ETH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, Height, 91.364, kg, 12/02/22 20:25:00 ETH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, Weight ferrous 2023-0 Yes 325 mg = 1 [place] jessi sulfate 325 3-18 tab, PO, l mg oral 16:56: Daily, # Luisito n enteric 00 30 tab, 0 coated Refill(s), tablet [id number], 170.18, cm, 12/02/22 20:25:00 ETH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, Height, 91.364, kg, 12/02/22 20:25:00 ETH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, Weight Vitamin C 3-0 Yes 500 mg = 1 Me moria 500 mg oral 3-18 tab, PO, l tablet 16:56: Daily, # [place] 00 30 tab, 0 Refill(s), Pharmacy: [id number], 170.18, cm, 12/02/22 20:25:00 ETH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, Height, 91.364, kg, 12/02/22 20:25:00 ETH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, Weight ferrous 3-0 Yes 325 mg = 1 [place] jessi sulfate 325 3-18 tab, PO, l mg oral 16:56: Daily, # Luisito n enteric 00 30 tab, 0 coated Refill(s), tablet [id number], 170.18, cm, 12/02/22 20:25:00 ETH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, Height, 91.364, kg, 12/02/22 20:25:00 ETH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, Weight Vitamin C 2023-0 Yes 500 mg = 1 Me moria 500 mg oral 3-18 tab, PO, l tablet 16:56: Daily, # [place] 00 30 tab, 0 Refill(s), Pharmacy: [id number], 170.18, cm, 12/02/22 20:25:00 ETH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, Height, 91.364, kg, 12/02/22 20:25:00 ETH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, Weight ferrous 2023-0 Yes 325 mg = 1 [place] jessi sulfate 325 3-18 tab, PO, l mg oral 16:56: Daily, # Luisito n enteric 00 30 tab, 0 coated Refill(s), tablet Pharmacy: [id number], 170.18, cm, 12/02/22 20:25:00 ETH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, Height, 91.364, kg, 12/02/22 20:25:00 ETH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, Weight Vitamin C 2022-0 Yes 500 mg = 1 Me moria 500 mg oral 3-18 tab, PO, l tablet 16:56: Daily, # Momo 00 30 tab, 0 Refill(s), Pharmacy: [id number], 170.18, cm, 12/02/22 20:25:00 ETH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, Height, 91.364, kg, 12/02/22 20:25:00 ETH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, Weight ferrous 2022-0 Yes 325 mg = 1 Tico jessi sulfate 325 3-18 tab, PO, l mg oral 16:56: Daily, # Luisito n enteric 00 30 tab, 0 coated Refill(s), tablet Pharmacy: [facility] #[id number], 170.18, cm, 12/02/22 20:25:00 ETH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, Height, 91.364, kg, 12/02/22 20:25:00 ETH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, Weight Vitamin C 2022-0 Yes 500 mg = 1 Me moria 500 mg oral 3-18 tab, PO, l tablet 16:56: Daily, # [place] 00 30 tab, 0 Refill(s), Pharmacy: [facility] #[id number], 170.18, cm, 12/02/22 20:25:00 ETH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, Height, 91.364, kg, 12/02/22 20:25:00 ETH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, Weight Tylenol 2022-0 Yes 1 tab, PO, Tico jessi with 3-18 Q6H, PRN l Codeine #3 16:46: Pain, not He rmann oral tablet 00 to exceed 4000 mg acetaminop hen per day, X 4 day, # 20 tab, 0 Refill(s), Pharmacy: [facility] #[id number], 170.18, cm, 12/02/22 20:25:00 ETH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, Height, 91.364, kg, 12/02/22 20:25:00 ETH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, Weight Tylenol 3-0 Yes 1 tab, PO, [place] jessi with 3-18 Q6H, PRN l Codeine #3 16:46: Pain, not He rmann oral tablet 00 to exceed 4000 mg acetaminop hen per day, X 4 day, # 20 tab, 0 Refill(s), Pharmacy: [facility] #[id number], 170.18, cm, 12/02/22 20:25:00 ETH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, Height, 91.364, kg, 12/02/22 20:25:00 ETH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, Weight Tylenol 2023-0 Yes 1 tab, PO, Tico jessi with 3-18 Q6H, PRN l Codeine #3 16:46: Pain, not He rmann oral tablet 00 to exceed 4000 mg acetaminop hen per day, X 4 day, # 20 tab, 0 Refill(s), Pharmacy: [facility] #[id number], 170.18, cm, 12/02/22 20:25:00 ETH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, Height, 91.364, kg, 12/02/22 20:25:00 ETH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, Weight Tylenol 2023-0 Yes 1 tab, PO, Tico jessi with 3-18 Q6H, PRN l Codeine #3 16:46: Pain, not He rmann oral tablet 00 to exceed 4000 mg acetaminop hen per day, X 4 day, # 20 tab, 0 Refill(s), Pharmacy: [facility] #[id number], 170.18, cm, 12/02/22 20:25:00 ETH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, Height, 91.364, kg, 12/02/22 20:25:00 ETH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, Weight Tylenol 2023-0 Yes 1 tab, PO, [place] jessi with 3-18 Q6H, PRN l Codeine #3 16:46: Pain, not He rmann oral tablet 00 to exceed 4000 mg acetaminop hen per day, X 4 day, # 20 tab, 0 Refill(s), Pharmacy: [facility] #[id number], 170.18, cm, 12/02/22 20:25:00 ETH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, Height, 91.364, kg, 12/02/22 20:25:00 ETH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, Weight Tylenol 2023-0 Yes 1 tab, PO, [place] jessi with 3-18 Q6H, PRN l Codeine #3 16:46: Pain, not He rmann oral tablet 00 to exceed 4000 mg acetaminop hen per day, X 4 day, # 20 tab, 0 Refill(s), Pharmacy: [facility] #[id number], 170.18, cm, 12/02/22 20:25:00 ETH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, Height, 91.364, kg, 12/02/22 20:25:00 ETH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, Weight aspirin 81 2022-0 Yes 81 mg = 1 Me moria mg tablet, 3-18 tab, PO, l enteric 16:45: Daily, # Luisito n coated 00 90 tab, 3 Refill(s), Pharmacy: [id number], 170.18, cm, 12/02/22 20:25:00 ETH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, Height, 91.364, kg, 12/02/22 20:25:00 ETH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, Weight atorvastati 2022-0 Yes 40 mg = 1 M emoria n 40 mg 3-18 tab, PO, l oral tablet 16:45: Bedtime, # [place] 00 30 tab, 0 Refill(s), Pharmacy: [id number], 170.18, cm, 12/02/22 20:25:00 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, Height, 91.364, kg, 12/02/22 20:25:00 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, Weight aspirin 81 2022-0 Yes 81 mg = 1 Me moria mg tablet, 3-18 tab, PO, l enteric 16:45: Daily, # [place] n coated 00 90 tab, 3 Refill(s), Pharmacy: [facility] #[id number], 170.18, cm, 12/02/22 20:25:00 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, Height, 91.364, kg, 12/02/22 20:25:00 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, Weight atorvastati 2022-0 Yes 40 mg = 1 M emoria n 40 mg 3-18 tab, PO, l oral tablet 16:45: Bedtime, # [place] 00 30 tab, 0 Refill(s), Pharmacy: [facility] #[id number], 170.18, cm, 12/02/22 20:25:00 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, Height, 91.364, kg, 12/02/22 20:25:00 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, Weight aspirin 81 2022-0 Yes 81 mg = 1 Me moria mg tablet, 3-18 tab, PO, l enteric 16:45: Daily, # [place] n coated 00 90 tab, 3 Refill(s), Pharmacy: [facility] #[id number], 170.18, cm, 12/02/22 20:25:00 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, Height, 91.364, kg, 12/02/22 20:25:00 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, Weight atorvastati 3-0 Yes 40 mg = 1 M emoria n 40 mg 3-18 tab, PO, l oral tablet 16:45: Bedtime, # [place] 00 30 tab, 0 Refill(s), Pharmacy: [facility] #[id number], 170.18, cm, 12/02/22 20:25:00 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, Height, 91.364, kg, 12/02/22 20:25:00 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, Weight aspirin 81 2022-0 Yes 81 mg = 1 Me moria mg tablet, 3-18 tab, PO, l enteric 16:45: Daily, # [place] n coated 00 90 tab, 3 Refill(s), Pharmacy: [facility] #[id number], 170.18, cm, 12/02/22 20:25:00 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, Height, 91.364, kg, 12/02/22 20:25:00 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, Weight atorvastati 2022-0 Yes 40 mg = 1 M emoria n 40 mg 3-18 tab, PO, l oral tablet 16:45: Bedtime, # [place] 00 30 tab, 0 Refill(s), Pharmacy: [facility] #[id number], 170.18, cm, 12/02/22 20:25:00 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, Height, 91.364, kg, 12/02/22 20:25:00 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, Weight aspirin 81 2022-0 Yes 81 mg = 1 Me moria mg tablet, 3-18 tab, PO, l enteric 16:45: Daily, # [place] n coated 00 90 tab, 3 Refill(s), Pharmacy: [facility] #[id number], 170.18, cm, 12/02/22 20:25:00 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, Height, 91.364, kg, 12/02/22 20:25:00 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, Weight atorvastati 2022-0 Yes 40 mg = 1 M emoria n 40 mg 3-18 tab, PO, l oral tablet 16:45: Bedtime, # [place] 00 30 tab, 0 Refill(s), Pharmacy: [id number], 170.18, cm, 12/02/22 20:25:00 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, Height, 91.364, kg, 12/02/22 20:25:00 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, Weight aspirin 81 2022-0 Yes 81 mg = 1 Me moria mg tablet, 3-18 tab, PO, l enteric 16:45: Daily, # [place] n coated 00 90 tab, 3 Refill(s), Pharmacy: [id number], 170.18, cm, 12/02/22 20:25:00 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, Height, 91.364, kg, 12/02/22 20:25:00 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, Weight atorvastati 2022-0 Yes 40 mg = 1 M emoria n 40 mg 3-18 tab, PO, l oral tablet 16:45: Bedtime, # [place] 00 30 tab, 0 Refill(s), Pharmacy: [id number], 170.18, cm, 12/02/22 20:25:00 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, Height, 91.364, kg, 12/02/22 20:25:00 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, Weight midodrine 5 0 Yes 10 mg = 2 M emoria mg oral 3-18 tab, PO, l tablet 16:44: Q8Hnow, # [place] n 00 180 tab, 0 Refill(s), Pharmacy: [id number], 170.18, cm, 12/02/22 20:25:00 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, Height, 91.364, kg, 12/02/22 20:25:00 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, Weight midodrine 5 0 Yes 10 mg = 2 M emoria mg oral 3-18 tab, PO, l tablet 16:44: Q8Hnow, # [place] n 00 180 tab, 0 Refill(s), Pharmacy: [id number], 170.18, cm, 12/02/22 20:25:00 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, Height, 91.364, kg, 12/02/22 20:25:00 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, Weight midodrine 5 0 Yes 10 mg = 2 M emoria mg oral 3-18 tab, PO, l tablet 16:44: Q8Hnow, # [place] 00 180 tab, 0 Refill(s), Pharmacy: [id number], 170.18, cm, 12/02/22 20:25:00 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, Height, 91.364, kg, 12/02/22 20:25:00 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, Weight midodrine 5 Yes 10 mg = 2 M emoria mg oral 3-18 tab, PO, l tablet 16:44: Q8Hnow, # [place] 00 180 tab, 0 Refill(s), Pharmacy: [facility] #[id number], 170.18, cm, 12/02/22 20:25:00 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, Height, 91.364, kg, 12/02/22 20:25:00 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, Weight midodrine 5 Yes 10 mg = 2 M emoria mg oral 3-18 tab, PO, l tablet 16:44: Q8Hnow, # [place] 00 180 tab, 0 Refill(s), Pharmacy: [facility] #[id number], 170.18, cm, 12/02/22 20:25:00 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, Height, 91.364, kg, 12/02/22 20:25:00 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, Weight midodrine Yes 10 mg = 2 M emoria mg oral 3-18 tab, PO, l tablet 16:44: Q8Hnow, # [place] 00 180 tab, 0 Refill(s), Pharmacy: [facility] #[id number], 170.18, cm, 12/02/22 20:25:00 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, Height, 91.364, kg, 12/02/22 20:25:00 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, Weight Lokelma 10 No Notes: Memor ia g oral 3-12 (Same as: l powder for 20:34: Lokelm a) [place] 00 Mix with ion 45 mL water prior to administra tion Lokelma No Notes: Memor ia g oral 3-12 (Same as: l powder for 20:34: Lokelm a) [place] 00 Mix with ion 45 mL water prior to administra tion Lokelma No Notes: Memor ia g oral 3-12 (Same as: l powder for 20:34: Lokelm a) [place] [facility] 00 Mix with ion 45 mL water prior to administra tion Lokelma No Notes: Memor ia g oral 3-12 [...] as: l powder for 20:34: Lokelm a) [place] [facility] 00 Mix with ion 45 mL water prior to administra tion heparin Yes Notes: Memoria 3-10 porcine l 15:00: heparin [place] 00 heparin Yes Notes: Memoria 3-10 porcine l 15:00: heparin [place] 00 heparin Yes Notes: Memoria 3-10 porcine l 15:00: heparin [place] 00 heparin Yes Notes: Memoria 3-10 porcine l 15:00: heparin [place] 00 heparin Yes Notes: Memoria 3-10 porcine l 15:00: heparin [place] 00 heparin Yes Notes: Memoria 3-10 porcine l 15:00: heparin [place] 00 Lactated No 1,000 mL, [place]ers 3-10 Rate: 125 l Injection 13:24: ml/hr, Luisito n IV 1,000 mL 00 Infuse over: 8 hr, Route: IV, Dosing Weight 91.364 kg, Total Volume: 1,000, Start date: 12/06/22 7:24:00 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, Duration: 30 day, Stop date: 01/05/23 7:23:00 CDT, BSA: 2.1 m2, 0 ANES No 10 mg, Memoria hydrALAZINE 3-10 Route: l 13:24: IVP, [place] 00 Q20Min, Dosing Weight 91.364, kg, PRN Elevated BP, Start date: 12/06/22 7:24:00 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, Duration: 2 doses or times, Stop date: Limited # of times ANES 0 No 1,000 mg, Memoria acetaminoph 3-10 Route: PO, l en 13:24: Drug form: [place] 00 TAB, ONCE, Dosing Weight 91.364, kg, Start date: 12/06/22 7:24:00 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, Stop date: 12/06/22 7:24:00 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 ANES 2022-0 No 25 Memoria fentaNYL 3-10 microgram, l 13:24: Route: [place] 00 IVP, Q5Min, Dosing Weight 91.364, kg, PRN Pain Score 4-6, Priority: Routine, Start date: 12/06/22 7:24:00 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, Duration: 4 doses or times, Stop date: Limited # of times ANES 2022-0 No 0.5 mg, Memoria HYDROmorpho 3-10 Route: l ne 13:24: IVP, [place] 00 Q10Min, Dosing Weight 91.364, kg, PRN Pain Score 7-10, Start date: 12/06/22 7:24:00 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, Duration: 4 doses or times, Stop date: Limited # of times ANES 2022-0 No 0.2 mg, Memoria flumazenil 3-10 Route: l 13:24: IVP, PRN, [place] 00 Dosing Weight 91.364, kg, PRN Benzodiaze pine Reversal, Initial dose, Start date: 12/06/22 7:24:00 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, Duration: 30 day, Stop date: 01/05/23 8:23:00 CDT ANES 2022-0 No 0.4 mg, Memoria naloxone 3-10 Route: l 13:24: IVP, [place] 00 Q2MIN, Dosing Weight 91.364, kg, PRN Narcotic Reversal, Start date: 12/06/22 7:24:00 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, Duration: 8 doses or times, Stop date: Limited # of times ANES 2022-0 No 12.5 mg, Memoria diphenhydrA 3-10 Route: l MINE 13:24: IVP, Drug [place] 00 form: INJ, Q6H, Dosing Weight 91.364, kg, PRN Itching, Start date: 12/06/22 7:24:00 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, Duration: 30 day, Stop date: 01/05/23 7:23:00 CDT ANES 2022-0 No 5 mg, Memoria ePHEDrine 3-10 Route: l 13:24: IVP, [place] 00 Q5Min, Dosing Weight 91.364, kg, PRN Low Blood Pressure, Start date: 12/06/22 7:24:00 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, Duration: 30 day, Stop date: 01/05/23 8:23:00 CDT ANES 3-0 No 2.49 mg, Memoria albuterol 3-10 Route: l 0.083% 13:24: NEB, [place] inhalation 00 Q20Min, solution Dosing Weight 91.364, kg, PRN Wheezing, Start date: 12/06/22 7:24:00 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, Duration: 30 day, Stop date: 01/05/23 8:23:00 CDT ANES 3-0 No 4 mg, Memoria ondansetron 3-10 Route: l 13:24: IVP, ONCE, [place]o Dosing Weight 91.364, kg, PRN Nausea & Vomiting, Start date: 12/06/22 7:24:00 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 Lactated 2022-0 No 1,000 mL, [place] 3-10 Rate: 125 l Injection 13:24: ml/hr, [place] n IV 1,000 mL 00 Infuse over: 8 hr, Route: IV, Dosing Weight 91.364 kg, Total Volume: 1,000, Start date: 12/06/22 7:24:00 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, Duration: 30 day, Stop date: 01/05/23 7:23:00 CDT, BSA: 2.1 m2, 0 ANES 2022-0 No 10 mg, Memoria hydrALAZINE 3-10 Route: l 13:24: IVP, [place] 00 Q20Min, Dosing Weight 91.364, kg, PRN Elevated BP, Start date: 12/06/22 7:24:00 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, Duration: 2 doses or times, Stop date: Limited # of times ANES 3-0 No 1,000 mg, Memoria acetaminoph 3-10 Route: PO, l en 13:24: Drug form: [place] 00 TAB, ONCE, Dosing Weight 91.364, kg, Start date: 12/06/22 7:24:00 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, Stop date: 12/06/22 7:24:00 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 ANES 3-0 No 25 Memoria fentaNYL 3-10 microgram, l 13:24: Route: [place] 00 IVP, Q5Min, Dosing Weight 91.364, kg, PRN Pain Score 4-6, Priority: Routine, Start date: 12/06/22 7:24:00 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, Duration: 4 doses or times, Stop date: Limited # of times ANES 3-0 No 0.5 mg, Memoria HYDROmorpho 3-10 Route: l ne 13:24: IVP, [place] 00 Q10Min, Dosing Weight 91.364, kg, PRN Pain Score 7-10, Start date: 12/06/22 7:24:00 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, Duration: 4 doses or times, Stop date: Limited # of times ANES 2022-0 No 0.2 mg, Memoria flumazenil 3-10 Route: l 13:24: IVP, PRN, [place] 00 Dosing Weight 91.364, kg, PRN Benzodiaze pine Reversal, Initial dose, Start date: 12/06/22 7:24:00 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, Duration: 30 day, Stop date: 01/05/23 8:23:00 CDT ANES 2022-0 No 0.4 mg, Memoria naloxone 3-10 Route: l 13:24: IVP, [place] 00 Q2MIN, Dosing Weight 91.364, kg, PRN Narcotic Reversal, Start date: 12/06/22 7:24:00 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, Duration: 8 doses or times, Stop date: Limited # of times ANES 2022-0 No 12.5 mg, Memoria diphenhydrA 3-10 Route: l MINE 13:24: IVP, Drug form: INJ, Q6H, Dosing Weight 91.364, kg, PRN Itching, Start date: 12/06/22 7:24:00 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, Duration: 30 day, Stop date: 01/05/23 7:23:00 CDT ANES 3-0 No 5 mg, Memoria ePHEDrine 3-10 Route: l 13:24: IVP, [place] 00 Q5Min, Dosing Weight 91.364, kg, PRN Low Blood Pressure, Start date: 12/06/22 7:24:00 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, Duration: 30 day, Stop date: 01/05/23 8:23:00 CDT ANES 3-0 No 2.49 mg, Memoria albuterol 3-10 Route: l 0.083% 13:24: NEB, [place] inhalation 00 Q20Min, solution Dosing Weight 91.364, kg, PRN Wheezing, Start date: 12/06/22 7:24:00 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, Duration: 30 day, Stop date: 01/05/23 8:23:00 CDT ANES 3-0 No 4 mg, Memoria ondansetron 3-10 Route: l 13:24: IVP, ONCE, [place] 00 Dosing Weight 91.364, kg, PRN Nausea & Vomiting, Start date: 12/06/22 7:24:00 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 Lactated 2022-0 No 1,000 mL, [place]ers 3-10 Rate: 125 l Injection 13:24: ml/hr, [place] n IV 1,000 mL 00 Infuse over: 8 hr, Route: IV, Dosing Weight 91.364 kg, Total Volume: 1,000, Start date: 12/06/22 7:24:00 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, Duration: 30 day, Stop date: 01/05/23 7:23:00 CDT, BSA: 2.1 m2, 0 ANES 3-0 No 10 mg, Memoria hydrALAZINE 3-10 Route: l 13:24: IVP, [place] 00 Q20Min, Dosing Weight 91.364, kg, PRN Elevated BP, Start date: 12/06/22 7:24:00 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, Duration: 2 doses or times, Stop date: Limited # of times ANES 3-0 No 1,000 mg, Memoria acetaminoph 3-10 Route: PO, l en 13:24: Drug form: [place] 00 TAB, ONCE, Dosing Weight 91.364, kg, Start date: 12/06/22 7:24:00 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, Stop date: 12/06/22 7:24:00 ETH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 ANES 2022-0 No 25 Memoria fentaNYL 3-10 microgram, l 13:24: Route: [place] 00 IVP, Q5Min, Dosing Weight 91.364, kg, PRN Pain Score 4-6, Priority: Routine, Start date: 12/06/22 7:24:00 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, Duration: 4 doses or times, Stop date: Limited # of times ANES 2022-0 No 0.5 mg, Memoria HYDROmorpho 3-10 Route: l ne 13:24: IVP, [place] 00 Q10Min, Dosing Weight 91.364, kg, PRN Pain Score 7-10, Start date: 12/06/22 7:24:00 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, Duration: 4 doses or times, Stop date: Limited # of times ANES 2022-0 No 0.2 mg, Memoria flumazenil 3-10 Route: l 13:24: IVP, PRN, [place] 00 Dosing Weight 91.364, kg, PRN Benzodiaze pine Reversal, Initial dose, Start date: 12/06/22 7:24:00 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, Duration: 30 day, Stop date: 01/05/23 8:23:00 CDT ANES 2022-0 No 0.4 mg, Memoria naloxone 3-10 Route: l 13:24: IVP, [place] 00 Q2MIN, Dosing Weight 91.364, kg, PRN Narcotic Reversal, Start date: 12/06/22 7:24:00 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, Duration: 8 doses or times, Stop date: Limited # of times ANES 2022-0 No 12.5 mg, Memoria diphenhydrA 3-10 Route: l MINE 13:24: IVP, Drug [place] 00 form: INJ, Q6H, Dosing Weight 91.364, kg, PRN Itching, Start date: 12/06/22 7:24:00 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, Duration: 30 day, Stop date: 01/05/23 7:23:00 CDT ANES 2022-0 No 5 mg, Memoria ePHEDrine 3-10 Route: l 13:24: IVP, [place] 00 Q5Min, Dosing Weight 91.364, kg, PRN Low Blood Pressure, Start date: 12/06/22 7:24:00 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, Duration: 30 day, Stop date: 01/05/23 8:23:00 CDT ANES 2022-0 No 2.49 mg, Memoria albuterol 3-10 Route: l 0.083% 13:24: NEB, [place] inhalation 00 Q20Min, solution Dosing Weight 91.364, kg, PRN Wheezing, Start date: 12/06/22 7:24:00 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, Duration: 30 day, Stop date: 01/05/23 8:23:00 CDT ANES 2022-0 No 4 mg, Memoria ondansetron 3-10 Route: l 13:24: IVP, ONCE, [place] 00 Dosing Weight 91.364, kg, PRN Nausea & Vomiting, Start date: 12/06/22 7:24:00 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 Lactated 2022-0 No 1,000 mL, [place] 3-10 Rate: 125 l Injection 13:24: ml/hr, [place] n IV 1,000 mL 00 Infuse over: 8 hr, Route: IV, Dosing Weight 91.364 kg, Total Volume: 1,000, Start date: 12/06/22 7:24:00 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, Duration: 30 day, Stop date: 01/05/23 7:23:00 CDT, BSA: 2.1 m2, 0 ANES 2022-0 No 10 mg, Memoria hydrALAZINE 3-10 Route: l 13:24: IVP, [place] 00 Q20Min, Dosing Weight 91.364, kg, PRN Elevated BP, Start date: 12/06/22 7:24:00 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, Duration: 2 doses or times, Stop date: Limited # of times ANES 2022-0 No 1,000 mg, Memoria acetaminoph 3-10 Route: PO, l en 13:24: Drug form: [place] 00 TAB, ONCE, Dosing Weight 91.364, kg, Start date: 12/06/22 7:24:00 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, Stop date: 12/06/22 7:24:00 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 ANES 2022-0 No 25 Memoria fentaNYL 3-10 microgram, l 13:24: Route: [place] 00 IVP, Q5Min, Dosing Weight 91.364, kg, PRN Pain Score 4-6, Priority: Routine, Start date: 12/06/22 7:24:00 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, Duration: 4 doses or times, Stop date: Limited # of times ANES 2022-0 No 0.5 mg, Memoria HYDROmorpho 3-10 Route: l ne 13:24: IVP, [place] 00 Q10Min, Dosing Weight 91.364, kg, PRN Pain Score 7-10, Start date: 12/06/22 7:24:00 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, Duration: 4 doses or times, Stop date: Limited # of times ANES 2023-0 No 0.2 mg, Memoria flumazenil 3-10 Route: l 13:24: IVP, PRN, [place] 00 Dosing Weight 91.364, kg, PRN Benzodiaze pine Reversal, Initial dose, Start date: 12/06/22 7:24:00 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, Duration: 30 day, Stop date: 01/05/23 8:23:00 CDT ANES 3-0 No 0.4 mg, Memoria naloxone 3-10 Route: l 13:24: IVP, [place] 00 Q2MIN, Dosing Weight 91.364, kg, PRN Narcotic Reversal, Start date: 12/06/22 7:24:00 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, Duration: 8 doses or times, Stop date: Limited # of times ANES 3-0 No 12.5 mg, [facility] diphenhydrA 3-10 Route: l MINE 13:24: IVP, Drug [place] 00 form: INJ, Q6H, Dosing Weight 91.364, kg, PRN Itching, Start date: 12/06/22 7:24:00 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, Duration: 30 day, Stop date: 01/05/23 7:23:00 CDT ANES 3-0 No 5 mg, Memoria ePHEDrine 3-10 Route: l 13:24: IVP, [place] 00 Q5Min, Dosing Weight 91.364, kg, PRN Low Blood Pressure, Start date: 12/06/22 7:24:00 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, Duration: 30 day, Stop date: 01/05/23 8:23:00 CDT ANES 3-0 No 2.49 mg, Memoria albuterol 3-10 Route: l 0.083% 13:24: NEB, [place] inhalation 00 Q20Min, solution Dosing Weight 91.364, kg, PRN Wheezing, Start date: 12/06/22 7:24:00 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, Duration: 30 day, Stop date: 01/05/23 8:23:00 CDT ANES 3-0 No 4 mg, [facility] ondansetron 3-10 Route: l 13:24: IVP, ONCE, [place] 00 Dosing Weight 91.364, kg, PRN Nausea & Vomiting, Start date: 12/06/22 7:24:00 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 Lactated 2023-0 No 1,000 mL, [place] 3-10 Rate: 125 l Injection 13:24: ml/hr, [place] n IV 1,000 mL 00 Infuse over: 8 hr, Route: IV, Dosing Weight 91.364 kg, Total Volume: 1,000, Start date: 12/06/22 7:24:00 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, Duration: 30 day, Stop date: 01/05/23 7:23:00 CDT, BSA: 2.1 m2, 0 ANES 2022-0 No 10 mg, Memoria hydrALAZINE 3-10 Route: l 13:24: IVP, [place] 00 Q20Min, Dosing Weight 91.364, kg, PRN Elevated BP, Start date: 12/06/22 7:24:00 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, Duration: 2 doses or times, Stop date: Limited # of times ANES 2022-0 No 1,000 mg, Memoria acetaminoph 3-10 Route: PO, l en 13:24: Drug form: [place] 00 TAB, ONCE, Dosing Weight 91.364, kg, Start date: 12/06/22 7:24:00 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, Stop date: 12/06/22 7:24:00 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 ANES 2022-0 No 25 Memoria fentaNYL 3-10 microgram, l 13:24: Route: [place] 00 IVP, Q5Min, Dosing Weight 91.364, kg, PRN Pain Score 4-6, Priority: Routine, Start date: 12/06/22 7:24:00 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, Duration: 4 doses or times, Stop date: Limited # of times ANES 2022-0 No 0.5 mg, Memoria HYDROmorpho 3-10 Route: l ne 13:24: IVP, [place] 00 Q10Min, Dosing Weight 91.364, kg, PRN Pain Score 7-10, Start date: 12/06/22 7:24:00 ETH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, Duration: 4 doses or times, Stop date: Limited # of times ANES 2022-0 No 0.2 mg, [facility] flumazenil 3-10 Route: l 13:24: IVP, PRN, [place] 00 Dosing Weight 91.364, kg, PRN Benzodiaze pine Reversal, Initial dose, Start date: 12/06/22 7:24:00 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, Duration: 30 day, Stop date: 01/05/23 8:23:00 CDT ANES 3-0 No 0.4 mg, Mem[facility] naloxone 3-10 Route: l 13:24: IVP, [place] 00 Q2MIN, Dosing Weight 91.364, kg, PRN Narcotic Reversal, Start date: 12/06/22 7:24:00 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, Duration: 8 doses or times, Stop date: Limited # of times ANES 3-0 No 12.5 mg, [facility] diphenhydrA 3-10 Route: l MINE 13:24: IVP, Drug [place] 00 form: INJ, Q6H, Dosing Weight 91.364, kg, PRN Itching, Start date: 12/06/22 7:24:00 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, Duration: 30 day, Stop date: 01/05/23 7:23:00 CDT ANES 3-0 No 5 mg, [facility] ePHEDrine 3-10 Route: l 13:24: IVP, [place] 00 Q5Min, Dosing Weight 91.364, kg, PRN Low Blood Pressure, Start date: 12/06/22 7:24:00 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, Duration: 30 day, Stop date: 01/05/23 8:23:00 CDT ANES 3-0 No 2.49 mg, [facility] albuterol 3-10 Route: l 0.083% 13:24: NEB, [place] inhalation 00 Q20Min, solution Dosing Weight 91.364, kg, PRN Wheezing, Start date: 12/06/22 7:24:00 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, Duration: 30 day, Stop date: 01/05/23 8:23:00 CDT ANES 3-0 No 4 mg, [facility] ondansetron 3-10 Route: l 13:24: IVP, ONCE, [place] 00 Dosing Weight 91.364, kg, PRN Nausea & Vomiting, Start date: 12/06/22 7:24:00 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 Lactated 3-0 No 1,000 mL, [place] 3-10 Rate: 125 l Injection 13:24: ml/hr, [place] n IV 1,000 mL 00 Infuse over: 8 hr, Route: IV, Dosing Weight 91.364 kg, Total Volume: 1,000, Start date: 12/06/22 7:24:00 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, Duration: 30 day, Stop date: 01/05/23 7:23:00 CDT, BSA: 2.1 m2, 0 ANES 2022-0 No 10 mg, Memoria hydrALAZINE 3-10 Route: l 13:24: IVP, Momo 00 Q20Min, Dosing Weight 91.364, kg, PRN Elevated BP, Start date: 12/06/22 7:24:00 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, Duration: 2 doses or times, Stop date: Limited # of times ANES 2022-0 No 1,000 mg, Memoria acetaminoph 3-10 Route: PO, l en 13:24: Drug form: [place] 00 TAB, ONCE, Dosing Weight 91.364, kg, Start date: 12/06/22 7:24:00 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, Stop date: 12/06/22 7:24:00 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 ANES 2022-0 No 25 Memoria fentaNYL 3-10 microgram, l 13:24: Route: [place] 00 IVP, Q5Min, Dosing Weight 91.364, kg, PRN Pain Score 4-6, Priority: Routine, Start date: 12/06/22 7:24:00 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, Duration: 4 doses or times, Stop date: Limited # of times ANES 2022-0 No 0.5 mg, Memoria HYDROmorpho 3-10 Route: l ne 13:24: IVP, [place] 00 Q10Min, Dosing Weight 91.364, kg, PRN Pain Score 7-10, Start date: 12/06/22 7:24:00 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, Duration: 4 doses or times, Stop date: Limited # of times ANES 2022-0 No 0.2 mg, Memoria flumazenil 3-10 Route: l 13:24: IVP, PRN, Momo 00 Dosing Weight 91.364, kg, PRN Benzodiaze pine Reversal, Initial dose, Start date: 12/06/22 7:24:00 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, Duration: 30 day, Stop date: 01/05/23 8:23:00 CDT ANES 2022-0 No 0.4 mg, Memoria naloxone 3-10 Route: l 13:24: IVP, [place] 00 Q2MIN, Dosing Weight 91.364, kg, PRN Narcotic Reversal, Start date: 12/06/22 7:24:00 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, Duration: 8 doses or times, Stop date: Limited # of times ANES 2022-0 No 12.5 mg, Memoria diphenhydrA 3-10 Route: l MINE 13:24: IVP, Drug Momo 00 form: INJ, Q6H, Dosing Weight 91.364, kg, PRN Itching, Start date: 12/06/22 7:24:00 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, Duration: 30 day, Stop date: 01/05/23 7:23:00 CDT ANES 2022-0 No 5 mg, Memoria ePHEDrine 3-10 Route: l 13:24: IVP, [place] 00 Q5Min, Dosing Weight 91.364, kg, PRN Low Blood Pressure, Start date: 12/06/22 7:24:00 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, Duration: 30 day, Stop date: 01/05/23 8:23:00 CDT ANES 2022-0 No 2.49 mg, Memoria albuterol 3-10 Route: l 0.083% 13:24: NEB, Momo inhalation 00 Q20Min, solution Dosing Weight 91.364, kg, PRN Wheezing, Start date: 12/06/22 7:24:00 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, Duration: 30 day, Stop date: 01/05/23 8:23:00 CDT ANES 2022-0 No 4 mg, Memoria ondansetron 3-10 Route: l 13:24: IVP, ONCE, Dosing Weight 91.364, kg, PRN Nausea & Vomiting, Start date: 12/06/22 7:24:00 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 ceFAZolin 2022-0 No Route: IV, Me moria (ANES) 3-10 Drug form: l 13:12: INJ, ONCE, Stop date: 12/06/22 7:12:00 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 ondansetron 2022-0 No Route: IV, Memoria (ANES) 3-10 Drug form: l 13:12: INJ, ONCE, Stop date: 12/06/22 7:12:00 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 dexamethaso 2022-0 No Route: IV, Memoria ne (ANES) 3-10 Drug form: l 13:12: INJ, ONCE, Stop date: 12/06/22 7:12:00 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 phenylephri 2022-0 No Route: IV, Memoria ne (ANES) 3-10 Drug form: l 13:12: INJ, ONCE, Stop date: 12/06/22 7:12:00 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 fentaNYL 2022-0 No Route: IV, Mem oria (ANES) 3-10 Drug form: l 13:12: INJ, ONCE, Stop date: 12/06/22 7:12:00 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 propofol 2022-0 No Route: IV, Mem oria (ANES) 3-10 Drug form: l 13:12: INJ, ONCE, Stop date: 12/06/22 7:12:00 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 lidocaine 2022-0 No Route: IV, Me moria (ANES) 3-10 Drug form: l 13:12: INJ, ONCE, Stop date: 12/06/22 7:12:00 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 Insulin 2022-0 No Route: IV, [place] regular 3-10 Drug form: l (ANES) 13:12: INJ, ONCE, Stop date: 12/06/22 7:12:00 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 ceFAZolin 0 No Route: IV, Me moria (ANES) 3-10 Drug form: l 13:12: INJ, ONCE, Stop date: 12/06/22 7:12:00 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 ondansetron No Route: IV, Memoria (ANES) 3-10 Drug form: l 13:12: INJ, ONCE, Stop date: 12/06/22 7:12:00 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 dexamethaso No Route: IV, Memoria ne (ANES) 3-10 Drug form: l 13:12: INJ, ONCE, Stop date: 12/06/22 7:12:00 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 phenylephri 2022-0 No Route: IV, Memoria ne (ANES) 3-10 Drug form: l 13:12: INJ, ONCE, Stop date: 12/06/22 7:12:00 ETH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 fentaNYL 2022-0 No Route: IV, Mem oria (ANES) 3-10 Drug form: l 13:12: INJ, ONCE, Stop date: 12/06/22 7:12:00 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 propofol 2022-0 No Route: IV, Mem oria (ANES) 3-10 Drug form: l 13:12: INJ, ONCE, Stop date: 12/06/22 7:12:00 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 lidocaine 2022-0 No Route: IV, Me moria (ANES) 3-10 Drug form: l 13:12: INJ, ONCE, Stop date: 12/06/22 7:12:00 ETH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 Insulin 2022-0 No Route: IV, [place] regular 3-10 Drug form: l (ANES) 13:12: INJ, ONCE, Joanna Stop date: 12/06/22 7:12:00 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 ceFAZolin 2022-0 No Route: IV, Me moria (ANES) 3-10 Drug form: l 13:12: INJ, ONCE, Stop date: 12/06/22 7:12:00 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 ondansetron 0 No Route: IV, Memoria (ANES) 3-10 Drug form: l 13:12: INJ, ONCE, Stop date: 12/06/22 7:12:00 ETH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 dexamethaso 2022-0 No Route: IV, Memoria ne (ANES) 3-10 Drug form: l 13:12: INJ, ONCE, Stop date: 12/06/22 7:12:00 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 phenylephri 2022-0 No Route: IV, Memoria ne (ANES) 3-10 Drug form: l 13:12: INJ, ONCE, Stop date: 12/06/22 7:12:00 ETH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 fentaNYL 2022-0 No Route: IV, Mem oria (ANES) 3-10 Drug form: l 13:12: INJ, ONCE, Stop date: 12/06/22 7:12:00 ETH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 propofol 2022-0 No Route: IV, Mem oria (ANES) 3-10 Drug form: l 13:12: INJ, ONCE, Stop date: 12/06/22 7:12:00 ETH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 lidocaine 2022-0 No Route: IV, Me moria (ANES) 3-10 Drug form: l 13:12: INJ, ONCE, Stop date: 12/06/22 7:12:00 ETH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 Insulin 2022-0 No Route: IV, [place] regular 3-10 Drug form: l (ANES) 13:12: INJ, ONCE, Joanna Stop date: 12/06/22 7:12:00 ETH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 ceFAZolin 2022-0 No Route: IV, Me moria (ANES) 3-10 Drug form: l 13:12: INJ, ONCE, Stop date: 12/06/22 7:12:00 ETH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 ondansetron 0 No Route: IV, Memoria (ANES) 3-10 Drug form: l 13:12: INJ, ONCE, Stop date: 12/06/22 7:12:00 ETH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 dexamethaso 0 No Route: IV, Memoria ne (ANES) 3-10 Drug form: l 13:12: INJ, ONCE, Stop date: 12/06/22 7:12:00 ETH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 phenylephri 2022-0 No Route: IV, Memoria ne (ANES) 3-10 Drug form: l 13:12: INJ, ONCE, Stop date: 12/06/22 7:12:00 ETH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 fentaNYL 2022-0 No Route: IV, Mem oria (ANES) 3-10 Drug form: l 13:12: INJ, ONCE, Stop date: 12/06/22 7:12:00 ETH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 propofol 2022-0 No Route: IV, Mem oria (ANES) 3-10 Drug form: l 13:12: INJ, ONCE, Stop date: 12/06/22 7:12:00 ETH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 lidocaine 2022-0 No Route: IV, Me moria (ANES) 3-10 Drug form: l 13:12: INJ, ONCE, Stop date: 12/06/22 7:12:00 ETH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 Insulin 2022-0 No Route: IV, [place] jess[place] regular 3-10 Drug form: l (ANES) 13:12: INJ, ONCE, Joanna Stop date: 12/06/22 7:12:00 ETH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 ceFAZolin 2022-0 No Route: IV, Me moria (ANES) 3-10 Drug form: l 13:12: INJ, ONCE, [place] 00 Stop date: 12/06/22 7:12:00 ETH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 ondansetron 0 No Route: IV, Memoria (ANES) 3-10 Drug form: l 13:12: INJ, ONCE, Stop date: 12/06/22 7:12:00 ETH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 dexamethaso 2022-0 No Route: IV, Memoria ne (ANES) 3-10 Drug form: l 13:12: INJ, ONCE, Stop date: 12/06/22 7:12:00 ETH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 phenylephri 2022-0 No Route: IV, Memoria ne (ANES) 3-10 Drug form: l 13:12: INJ, ONCE, Stop date: 12/06/22 7:12:00 ETH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 fentaNYL 2022-0 No Route: IV, Mem oria (ANES) 3-10 Drug form: l 13:12: INJ, ONCE, Stop date: 12/06/22 7:12:00 ETH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 propofol 2022-0 No Route: IV, Mem oria (ANES) 3-10 Drug form: l 13:12: INJ, ONCE, Stop date: 12/06/22 7:12:00 ETH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 lidocaine 2022-0 No Route: IV, Me moria (ANES) 3-10 Drug form: l 13:12: INJ, ONCE, Stop date: 12/06/22 7:12:00 ETH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 Insulin 2022-0 No Route: IV, [place] jess[place] regular 3-10 Drug form: l (ANES) 13:12: INJ, ONCE, Joanna Stop date: 12/06/22 7:12:00 ETH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 ceFAZolin 2022-0 No Route: IV, Me moria (ANES) 3-10 Drug form: l 13:12: INJ, ONCE, Stop date: 12/06/22 7:12:00 ETH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 ondansetron 2022-0 No Route: IV, Memoria (ANES) 3-10 Drug form: l 13:12: INJ, ONCE, Stop date: 12/06/22 7:12:00 ETH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 dexamethaso 2022-0 No Route: IV, Memoria ne (ANES) 3-10 Drug form: l 13:12: INJ, ONCE, Stop date: 12/06/22 7:12:00 ETH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 phenylephri 2022-0 No Route: IV, Memoria ne (ANES) 3-10 Drug form: l 13:12: INJ, ONCE, [place] 00 Stop date: 12/06/22 7:12:00 ETH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 fentaNYL 2022-0 No Route: IV, Mem oria (ANES) 3-10 Drug form: l 13:12: INJ, ONCE, [place] 00 Stop date: 12/06/22 7:12:00 ETH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 propofol 2022-0 No Route: IV, Mem oria (ANES) 3-10 Drug form: l 13:12: INJ, ONCE, Stop date: 12/06/22 7:12:00 ETH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 lidocaine 2022-0 No Route: IV, Me moria (ANES) 3-10 Drug form: l 13:12: INJ, ONCE, Stop date: 12/06/22 7:12:00 ETH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 Insulin 2022-0 No Route: IV, [place] j[place] regular 3-10 Drug form: l (ANES) 13:12: INJ, ONCE, Joanna Stop date: 12/06/22 7:12:00 ETH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 Sodium 2022-0 No Route: IV, Memor ia Chloride 3-10 Total l 0.9% IV 12:29: Volume: [place] (ANES) 500 00 500, Start mL date: 12/06/22 6:29:00 ETH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, Stop date: 12/06/22 7:29:00 ETH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 Dextrose 2022-0 No Route: IV, Mem oria 10% in 3-10 Total l Water IV 12:29: Volume: Luisito n (ANES) 250 00 250, Start mL date: 12/06/22 6:29:00 ETH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, Stop date: 12/06/22 7:29:00 ETH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 Sodium 2023-0 No Route: IV, Memor ia Chloride 3-10 Total l 0.9% IV 12:29: Volume: [place] (ANES) 500 00 500, Start mL date: 12/06/22 6:29:00 ETH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, Stop date: 12/06/22 7:29:00 ETH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 Dextrose 2022-0 No Route: IV, Mem oria 10% in 3-10 Total l Water IV 12:29: Volume: Luisito n (ANES) 250 00 250, Start mL date: 12/06/22 6:29:00 ETH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, Stop date: 12/06/22 7:29:00 ETH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 Sodium 2023-0 No Route: IV, Memor ia Chloride 3-10 Total l 0.9% IV 12:29: Volume: [place] (ANES) 500 00 500, Start mL date: 12/06/22 6:29:00 ETH[employer]OL MAINTENANCE MECHANIC, Stop date: 12/06/22 7:29:00 ETH[employer]OL MAINTENANCE MECHANIC Dextrose 2023-0 No Route: IV, Mem oria 10% in 3-10 Total l Water IV 12:29: Volume: Luisito n (ANES) 250 00 250, Start mL date: 12/06/22 6:29:00 ETH[employer]OL MAINTENANCE MECHANIC, Stop date: 12/06/22 7:29:00 ETH[employer]OL MAINTENANCE MECHANIC Sodium 2023-0 No Route: IV, Memor ia Chloride 3-10 Total l 0.9% IV 12:29: Volume: [place]o (ANES) 500 00 500, Start mL date: 12/06/22 6:29:00 ETHANOL MAINTENANCE MECHANIC, Stop date: 12/06/22 7:29:00 ETHANOL MAINTENANCE MECHANIC Dextrose 2023-0 No Route: IV, Mem oria 10% in 3-10 Total l Water IV 12:29: Volume: Luisito n (ANES) 250 00 250, Start mL date: 12/06/22 6:29:00 ETHANOL MAINTENANCE MECHANIC, Stop date: 12/06/22 7:29:00 ETHANOL MAINTENANCE MECHANIC Sodium 2023-0 No Route: IV, Memor ia Chloride 3-10 Total l 0.9% IV 12:29: Volume: [place] (ANES) 500 00 500, Start mL date: 12/06/22 6:29:00 ETHANOL MAINTENANCE MECHANIC, Stop date: 12/06/22 7:29:00 ETHANOL MAINTENANCE MECHANIC Dextrose 2023-0 No Route: IV, Mem oria 10% in 3-10 Total l Water IV 12:29: Volume: Luisito n (ANES) 250 00 250, Start mL date: 12/06/22 6:29:00 ETHANOL MAINTENANCE MECHANIC, Stop date: 12/06/22 7:29:00 ETHANOL MAINTENANCE MECHANIC Sodium 2023-0 No Route: IV, Memor ia Chloride 3-10 Total l 0.9% IV 12:29: Volume: [place] (ANES) 500 00 500, Start mL date: 12/06/22 6:29:00 ETHANOL MAINTENANCE MECHANIC, Stop date: 12/06/22 7:29:00 ETHANOL MAINTENANCE MECHANIC Dextrose 2022-0 No Route: IV, Mem oria 10% in 3-10 Total l Water IV 12:29: Volume: Luisito n (ANES) 250 00 250, Start mL date: 12/06/22 6:29:00 ETHANOL MAINTENANCE MECHANIC, Stop date: 12/06/22 7:29:00 ETHANOL MAINTENANCE MECHANIC Lokelma 5 g 2022-0 Yes Notes: Tico jessi oral powder 3-09 (Same as: l for 18:00: Lokelma) [place] [facility] 00 Mix with ion 45 mL water prior to administra tion Lokelma 5 g 2022-0 Yes Notes: [place] jessi oral powder 3-09 (Same as: l for 18:00: Lokelma) [place] [employer] 00 Mix with ion 45 mL [...] 3-09 (Same as: l for 18:00: Lokelma) [place] [employer] 00 Mix with ion 45 mL water prior to administra tion Lokelma 5 g 2022-0 Yes Notes: [place] jessi oral powder 3-09 (Same as: l for 18:00: Lokelma) [place] [employer] 00 Mix with ion 45 mL water prior to administra tion amLODIPine 2022-0 Yes Notes: Memor ia 3-09 (Same as: l 03:30: Norvasc) [place] 00 amLODIPine 2022-0 Yes Notes: Memor ia 3-09 (Same as: l 03:30: Norvasc) [place]o 00 amLODIPine 2022-0 Yes Notes: Memor ia 3-09 (Same as: l 03:30: Norvasc) [place] 00 amLODIPine 2022-0 Yes Notes: Memor ia 3- (Same as: l 03:30: Norvas) amLODIPine 2022-0 Yes Notes: Memor ia 3- (Same as: l 03:30: Norvas) amLODIPine 2022-0 Yes Notes: Memor ia 3- (Same as: l 03:30: Norvas) [place] 5/325 2022-0 Yes Notes: [place] jessi oral tablet 3- (Same as: l 03:23: [place] Momo 00 325/5) Do not exceed 4gm/day of acetaminop hen. [place] 5/325 2022-0 Yes Notes: [place] jessi oral tablet 3- (Same as: l 03:23: [place] 00 325/5) Do not exceed 4gm/day of acetaminop hen. [place] 5/325 2022-0 Yes Notes: [place] jessi oral tablet 3- (Same as: l 03:23: [place] Momo 00 325/5) Do not exceed 4gm/day of acetaminop hen. [place] 5/325 2022-0 Yes Notes: [place] jessi oral tablet 3-09 (Same as: l 03:23: [place] Momo 00 325/5) Do not exceed 4gm/day of acetaminop hen. [place] 5/325 2022-0 Yes Notes: [place] jessi oral tablet 3- (Same as: l 03:23: [place] Momo 325/5) Do not exceed 4gm/day of acetaminop hen. [place] 5/325 2022-0 Yes Notes: [place] jessi oral tablet 3-09 (Same as: l 03:23: [place] Momo 00 325/5) Do not exceed 4gm/day of acetaminop hen. amLODIPine 2022-0 No 10 mg, 1 Mem oria 3-08 tab, l 15:00: Route: PO, Drug form: TAB, Daily, Dosing Weight 91.364, kg, Start date: 12/04/22 9:00:00 [employer]OL MAINTENANCE MECHANIC, Duration: 30 day, Stop date: 01/02/23 9:00:00 CDT amLODIPine 2022-0 No 10 mg, 1 Mem oria 3-08 tab, l 15:00: Route: PO, Momo 00 Drug form: TAB, Daily, Dosing Weight 91.364, kg, Start date: 12/04/22 9:00:00 ETH[employer]OL MAINTENANCE MECHANIC, Duration: 30 day, Stop date: 01/02/23 9:00:00 CDT amLODIPine 2023-0 No 10 mg, 1 Mem oria 3-08 tab, l 15:00: Route: PO, [place] 00 Drug form: TAB, Daily, Dosing Weight 91.364, kg, Start date: 12/04/22 9:00:00 ETH[employer]OL MAINTENANCE MECHANIC, Duration: 30 day, Stop date: 01/02/23 9:00:00 CDT amLODIPine 2023-0 No 10 mg, 1 Mem oria 3-08 tab, l 15:00: Route: PO, Drug form: TAB, Daily, Dosing Weight 91.364, kg, Start date: 12/04/22 9:00:00 ETH[employer]OL MAINTENANCE MECHANIC, Duration: 30 day, Stop date: 01/02/23 9:00:00 CDT amLODIPine 2023-0 No 10 mg, 1 Mem oria 3-08 tab, l 15:00: Route: PO, Drug form: TAB, Daily, Dosing Weight 91.364, kg, Start date: 12/04/22 9:00:00 ETHANOL MAINTENANCE MECHANIC, Duration: 30 day, Stop date: 01/02/23 9:00:00 CDT amLODIPine 2023-0 No 10 mg, 1 Mem oria 3-08 tab, l 15:00: Route: PO, Drug form: TAB, Daily, Dosing Weight 91.364, kg, Start date: 12/04/22 9:00:00 ETH[employer]OL MAINTENANCE MECHANIC, Duration: 30 day, Stop date: 01/02/23 9:00:00 CDT ANES 2023-0 No 1,000 mg, Memoria acetaminoph 3-08 Route: PO, l en 00:36: Drug form: [place] 00 TAB, ONCE, Dosing Weight 91.364, kg, Start date: 12/03/22 18:36:00 ETH[employer]OL MAINTENANCE MECHANIC, Stop date: 12/03/22 18:36:00 ETHANOL MAINTENANCE MECHANIC ANES 2023-0 No 5 mg, Memoria oxyCODONE 5 3-08 Route: PO, l mg 00:36: Drug form: [place] immediate 00 TAB, Q4H, release Dosing tablet Weight 91.364, kg, PRN Pain Score 4-6, Start date: 12/03/22 18:36:00 ETHANOL MAINTENANCE MECHANIC, Duration: 30 day, Stop date: 01/02/23 18:35:00 CDT ANES 3-0 No 0.5 mg, Memoria HYDROmorpho 3-08 Route: l ne 00:36: IVP, [place] 00 Q10Min, Dosing Weight 91.364, kg, PRN Pain Score 7-10, Start date: 12/03/22 18:36:00 ETH[employer]OL MAINTENANCE MECHANIC, Duration: 4 doses or times, Stop date: Limited # of times ANES 2022-0 No 0.2 mg, Memoria flumazenil 3-08 Route: l 00:36: IVP, PRN, [place] 00 Dosing Weight 91.364, kg, PRN Benzodiaze pine Reversal, Initial dose, Start date: 12/03/22 18:36:00 ETHANOL MAINTENANCE MECHANIC, Duration: 30 day, Stop date: 01/02/23 19:35:00 CDT ANES 3-0 No 0.4 mg, Memoria naloxone 3-08 Route: l 00:36: IVP, [place] 00 Q2MIN, Dosing Weight 91.364, kg, PRN Narcotic Reversal, Start date: 12/03/22 18:36:00 ETHANOL MAINTENANCE MECHANIC, Duration: 8 doses or times, Stop date: Limited # of times ANES 3-0 No 1,000 mg, Memoria acetaminoph 3-08 Route: PO, l en 00:36: Drug form: [place] 00 TAB, ONCE, Dosing Weight 91.364, kg, Start date: 12/03/22 18:36:00 ETHANOL MAINTENANCE MECHANIC, Stop date: 12/03/22 18:36:00 ETHANOL MAINTENANCE MECHANIC ANES 3-0 No 5 mg, Memoria oxyCODONE 5 3-08 Route: PO, l mg 00:36: Drug form: [place] immediate 00 TAB, Q4H, release Dosing tablet Weight 91.364, kg, PRN Pain Score 4-6, Start date: 12/03/22 18:36:00 ETHANOL MAINTENANCE MECHANIC, Duration: 30 day, Stop date: 01/02/23 18:35:00 CDT ANES 3-0 No 0.5 mg, Memoria HYDROmorpho 3-08 Route: l ne 00:36: IVP, [place] 00 Q10Min, Dosing Weight 91.364, kg, PRN Pain Score 7-10, Start date: 12/03/22 18:36:00 ETHANOL MAINTENANCE MECHANIC, Duration: 4 doses or times, Stop date: Limited # of times ANES 3-0 No 0.2 mg, Memoria flumazenil 3-08 Route: l 00:36: IVP, PRN, [place] 00 Dosing Weight 91.364, kg, PRN Benzodiaze pine Reversal, Initial dose, Start date: 12/03/22 18:36:00 ETHANOL MAINTENANCE MECHANIC, Duration: 30 day, Stop date: 01/02/23 19:35:00 CDT ANES 3-0 No 0.4 mg, Memoria naloxone 12-04 Route: l 00:36: IVP, [place] 00 Q2MIN, Dosing Weight 91.364, kg, PRN Narcotic Reversal, Start date: 12/03/22 18:36:00 ETH[employer]OL MAINTENANCE MECHANIC, Duration: 8 doses or times, Stop date: Limited # of times ANES 3-0 No 4 mg, Memoria ondansetron 3-08 Route: l 00:36: IVP, ONCE, [place] 00 Dosing Weight 91.364, kg, PRN Nausea & Vomiting, Start date: 12/03/22 18:36:00 ETH[employer]OL MAINTENANCE MECHANIC ANES 2022-0 No 4 mg, Memoria ondansetron 3-08 Route: l 00:36: IVP, ONCE, [place] Dosing Weight 91.364, kg, PRN Nausea & Vomiting, Start date: 12/03/22 18:36:00 ETH[employer]OL MAINTENANCE MECHANIC ANES 2022-0 No 1,000 mg, Memoria acetaminoph 3-08 Route: PO, l en 00:36: Drug form: [place] 00 TAB, ONCE, Dosing Weight 91.364, kg, Start date: 12/03/22 18:36:00 ETH[employer]OL MAINTENANCE MECHANIC, Stop date: 12/03/22 18:36:00 ETHANOL MAINTENANCE MECHANIC ANES 3-0 No 5 mg, Memoria oxyCODONE 5 3-08 Route: PO, l mg 00:36: Drug form: [place] immediate 00 TAB, Q4H, release Dosing tablet Weight 91.364, kg, PRN Pain Score 4-6, Start date: 12/03/22 18:36:00 ETHANOL MAINTENANCE MECHANIC, Duration: 30 day, Stop date: 01/02/23 18:35:00 CDT ANES 2022-0 No 0.5 mg, Memoria HYDROmorpho 3-08 Route: l ne 00:36: IVP, [place] 00 Q10Min, Dosing Weight 91.364, kg, PRN Pain Score 7-10, Start date: 12/03/22 18:36:00 ETHANOL MAINTENANCE MECHANIC, Duration: 4 doses or times, Stop date: Limited # of times ANES 2022-0 No 0.2 mg, Memoria flumazenil 3-08 Route: l 00:36: IVP, PRN, [place] 00 Dosing Weight 91.364, kg, PRN Benzodiaze pine Reversal, Initial dose, Start date: 12/03/22 18:36:00 ETHANOL MAINTENANCE MECHANIC, Duration: 30 day, Stop date: 01/02/23 19:35:00 CDT ANES 2022-0 No 0.4 mg, Memoria naloxone 308 Route: l 00:36: IVP, [place] 00 Q2MIN, Dosing Weight 91.364, kg, PRN Narcotic Reversal, Start date: 12/03/22 18:36:00 ETHANOL MAINTENANCE MECHANIC, Duration: 8 doses or times, Stop date: Limited # of times ANES 2022-0 No 4 mg, Memoria ondansetron 3-08 Route: l 00:36: IVP, ONCE, [place] 00 Dosing Weight 91.364, kg, PRN Nausea & Vomiting, Start date: 12/03/22 18:36:00 ETHANOL MAINTENANCE MECHANIC ANES 2022-0 No 1,000 mg, Memoria acetaminoph 3-08 Route: PO, l en 00:36: Drug form: [place] 00 TAB, ONCE, Dosing Weight 91.364, kg, Start date: 12/03/22 18:36:00 ETHANOL MAINTENANCE MECHANIC, Stop date: 12/03/22 18:36:00 ETHANOL MAINTENANCE MECHANIC ANES 3-0 No 5 mg, Memoria oxyCODONE 5 3-08 Route: PO, l mg 00:36: Drug form: [place] immediate 00 TAB, Q4H, release Dosing tablet Weight 91.364, kg, PRN Pain Score 4-6, Start date: 12/03/22 18:36:00 ETHANOL MAINTENANCE MECHANIC, Duration: 30 day, Stop date: 01/02/23 18:35:00 CDT ANES 2022-0 No 0.5 mg, Memoria HYDROmorpho 308 Route: l ne 00:36: IVP, [place] 00 Q10Min, Dosing Weight 91.364, kg, PRN Pain Score 7-10, Start date: 12/03/22 18:36:00 ETHANOL MAINTENANCE MECHANIC, Duration: 4 doses or times, Stop date: Limited # of times ANES 2022-0 No 0.2 mg, Memoria flumazenil 3 Route: l 00:36: IVP, PRN, [place] 00 Dosing Weight 91.364, kg, PRN Benzodiaze pine Reversal, Initial dose, Start date: 12/03/22 18:36:00 ETHANOL MAINTENANCE MECHANIC, Duration: 30 day, Stop date: 01/02/23 19:35:00 CDT ANES 2022-0 No 0.4 mg, Memoria naloxone 12-04 Route: l 00:36: IVP, [place] 00 Q2MIN, Dosing Weight 91.364, kg, PRN Narcotic Reversal, Start date: 12/03/22 18:36:00 ETHANOL MAINTENANCE MECHANIC, Duration: 8 doses or times, Stop date: Limited # of times ANES 2022-0 No 4 mg, Memoria ondansetron 12-04 Route: l 00:36: IVP, ONCE, [place] 00 Dosing Weight 91.364, kg, PRN Nausea & Vomiting, Start date: 12/03/22 18:36:00 ETHANOL MAINTENANCE MECHANIC ANES 2022-0 No 1,000 mg, Memoria acetaminoph 308 Route: PO, l en 00:36: Drug form: [place] 00 TAB, ONCE, Dosing Weight 91.364, kg, Start date: 12/03/22 18:36:00 ETHANOL MAINTENANCE MECHANIC, Stop date: 12/03/22 18:36:00 ETHANOL MAINTENANCE MECHANIC ANES 2022-0 No 5 mg, Memoria oxyCODONE 5 3-08 Route: PO, l mg 00:36: Drug form: [place] immediate 00 TAB, Q4H, release Dosing tablet Weight 91.364, kg, PRN Pain Score 4-6, Start date: 12/03/22 18:36:00 ETHANOL MAINTENANCE MECHANIC, Duration: 30 day, Stop date: 01/02/23 18:35:00 CDT ANES 2022-0 No 0.5 mg, Memoria HYDROmorpho 3-08 Route: l ne 00:36: IVP, [place] 00 Q10Min, Dosing Weight 91.364, kg, PRN Pain Score 7-10, Start date: 12/03/22 18:36:00 ETHANOL MAINTENANCE MECHANIC, Duration: 4 doses or times, Stop date: Limited # of times ANES 2022-0 No 0.2 mg, Memoria flumazenil 3-08 Route: l 00:36: IVP, PRN, [place] 00 Dosing Weight 91.364, kg, PRN Benzodiaze pine Reversal, Initial dose, Start date: 12/03/22 18:36:00 ETHANOL MAINTENANCE MECHANIC, Duration: 30 day, Stop date: 01/02/23 19:35:00 CDT ANES 2022-0 No 0.4 mg, Memoria naloxone 308 Route: l 00:36: IVP, [place] 00 Q2MIN, Dosing Weight 91.364, kg, PRN Narcotic Reversal, Start date: 12/03/22 18:36:00 ETHANOL MAINTENANCE MECHANIC, Duration: 8 doses or times, Stop date: Limited # of times ANES 3-0 No 4 mg, Memoria ondansetron 3-08 Route: l 00:36: IVP, ONCE, [place] 00 Dosing Weight 91.364, kg, PRN Nausea & Vomiting, Start date: 12/03/22 18:36:00 ETHANOL MAINTENANCE MECHANIC ANES 2022-0 No 1,000 mg, Memoria acetaminoph 3-08 Route: PO, l en 00:36: Drug form: [place] 00 TAB, ONCE, Dosing Weight 91.364, kg, Start date: 12/03/22 18:36:00 ETHANOL MAINTENANCE MECHANIC, Stop date: 12/03/22 18:36:00 ETHANOL MAINTENANCE MECHANIC ANES 3-0 No 5 mg, Memoria oxyCODONE 5 3-08 Route: PO, l mg 00:36: Drug form: [place] immediate 00 TAB, Q4H, release Dosing tablet Weight 91.364, kg, PRN Pain Score 4-6, Start date: 12/03/22 18:36:00 ETHANOL MAINTENANCE MECHANIC, Duration: 30 day, Stop date: 01/02/23 18:35:00 CDT ANES 2022-0 No 0.5 mg, Memoria HYDROmorpho 3-08 Route: l ne 00:36: IVP, [place] 00 Q10Min, Dosing Weight 91.364, kg, PRN Pain Score 7-10, Start date: 12/03/22 18:36:00 [employer], Duration: 4 doses or times, Stop date: Limited # of times ANES 2022-0 No 0.2 mg, Memoria flumazenil 3-08 Route: l 00:36: IVP, PRN, Momo 00 Dosing Weight 91.364, kg, PRN Benzodiaze pine Reversal, Initial dose, Start date: 12/03/22 18:36:00 [employer], Duration: 30 day, Stop date: 01/02/23 19:35:00 CDT ANES 2022-0 No 0.4 mg, Memoria naloxone 12-04 Route: l 00:36: IVP, [place] 00 Q2MIN, Dosing Weight 91.364, kg, PRN Narcotic Reversal, Start date: 12/03/22 18:36:00 [employer], Duration: 8 doses or times, Stop date: Limited # of times ANES 2022-0 No 4 mg, Memoria ondansetron 3-08 Route: l 00:36: IVP, ONCE, [place] 00 Dosing Weight 91.364, kg, PRN Nausea & Vomiting, Start date: 12/03/22 18:36:00 [employer] Sodium 3-0 No Route: IV, Memor ia Chloride 3-07 Total l 0.9% IV 23:53: Volume: Momo (ANES) 1000 00 1,000, mL Start date: 12/03/22 17:53:00 [employer], Stop date: 12/03/22 18:53:00 [employer] Sodium 2023-0 No Route: IV, Memor ia Chloride 3-07 Total l 0.9% IV 23:53: Volume: [place] (ANES) 1000 00 1,000, mL Start date: 12/03/22 17:53:00 [employer], Stop date: 12/03/22 18:53:00 [employer] Sodium 2023-0 No Route: IV, Memor ia Chloride 3-07 Total l 0.9% IV 23:53: Volume: [place] (ANES) 1000 00 1,000, mL Start date: 12/03/22 17:53:00 [employer], Stop date: 12/03/22 18:53:00 [employer] Sodium 3-0 No Route: IV, Memor ia Chloride 3-07 Total l 0.9% IV 23:53: Volume: [place] (ANES) 1000 00 1,000, mL Start date: 12/03/22 17:53:00 [employer], Stop date: 12/03/22 18:53:00 [employer] Sodium 3-0 No Route: IV, Memor ia Chloride 3-07 Total l 0.9% IV 23:53: Volume: [place] (ANES) 1000 00 1,000, mL Start date: 12/03/22 17:53:00 [employer], Stop date: 12/03/22 18:53:00 [employer] Sodium 2022-0 No Route: IV, Memor ia Chloride 3-07 Total l 0.9% IV 23:53: Volume: [place] (ANES) 1000 00 1,000, mL Start date: 12/03/22 17:53:00 [employer], Stop date: 12/03/22 18:53:00 [employer] fentaNYL 2022-0 No Route: IV, Mem oria (ANES) 3-07 Drug form: l 23:52: INJ, ONCE, Stop date: 12/03/22 17:52:00 [employer] propofol 2022-0 No Route: IV, Mem oria (ANES) 3-07 Drug form: l 23:52: INJ, ONCE, Stop date: 12/03/22 17:52:00 [employer] ceFAZolin 2022-0 No Route: IV, Me moria (ANES) 3-07 Drug form: l 23:52: INJ, ONCE, Stop date: 12/03/22 17:52:00 [employer] ondansetron 2022-0 No Route: IV, Memoria (ANES) 3-07 Drug form: l 23:52: INJ, ONCE, Stop date: 12/03/22 17:52:00 [employer] fentaNYL 2022-0 No Route: IV, Mem oria (ANES) 3-07 Drug form: l 23:52: INJ, ONCE, Stop date: 12/03/22 17:52:00 [employer] propofol 2023-0 No Route: IV, Mem oria (ANES) 3- Drug form: l 23:52: INJ, ONCE, Stop date: 12/03/22 17:52:00 [employer] ceFAZolin 2023-0 No Route: IV, Me moria (ANES) 3-07 Drug form: l 23:52: INJ, ONCE, Stop date: 12/03/22 17:52:00 [employer] ondansetron 2022-0 No Route: IV, Memoria (ANES) 3- Drug form: l 23:52: INJ, ONCE, Stop date: 12/03/22 17:52:00 [employer] fentaNYL 3-0 No Route: IV, Mem oria (ANES) 3- Drug form: l 23:52: INJ, ONCE, Stop date: 12/03/22 17:52:00 [employer] propofol 2023-0 No Route: IV, Mem oria (ANES) 3- Drug form: l 23:52: INJ, ONCE, Stop date: 12/03/22 17:52:00 [employer] ceFAZolin 2022-0 No Route: IV, Me moria (ANES) 3-07 Drug form: l 23:52: INJ, ONCE, Stop date: 12/03/22 17:52:00 [employer] ondansetron 2022-0 No Route: IV, Memoria (ANES) 3- Drug form: l 23:52: INJ, ONCE, Stop date: 12/03/22 17:52:00 [employer] fentaNYL 2023-0 No Route: IV, Mem oria (ANES) 3- Drug form: l 23:52: INJ, ONCE, Stop date: 12/03/22 17:52:00 [employer] propofol 3-0 No Route: IV, Mem oria (ANES) 3-07 Drug form: l 23:52: INJ, ONCE, Stop date: 12/03/22 17:52:00 [employer] ceFAZolin 2023-0 No Route: IV, Me moria (ANES) 3-07 Drug form: l 23:52: INJ, ONCE, Stop date: 12/03/22 17:52:00 [employer] ondansetron 2022-0 No Route: IV, Memoria (ANES) 3- Drug form: l 23:52: INJ, ONCE, Stop date: 12/03/22 17:52:00 ETHANOL MAINTENANCE MECHANIC fentaNYL 3-0 No Route: IV, Mem oria (ANES) 3- Drug form: l 23:52: INJ, ONCE, Stop date: 12/03/22 17:52:00 ETHANOL MAINTENANCE MECHANIC propofol 2022-0 No Route: IV, Mem oria (ANES) 3- Drug form: l 23:52: INJ, ONCE, Stop date: 12/03/22 17:52:00 ETHANOL MAINTENANCE MECHANIC ceFAZolin 2022-0 No Route: IV, Me moria (ANES) 3- Drug form: l 23:52: INJ, ONCE, Stop date: 12/03/22 17:52:00 ETHANOL MAINTENANCE MECHANIC ondansetron 2022-0 No Route: IV, Memoria (ANES) 3 Drug form: l 23:52: INJ, ONCE, Stop date: 12/03/22 17:52:00 ETHANOL MAINTENANCE MECHANIC fentaNYL 2022-0 No Route: IV, Mem oria (ANES) 3- Drug form: l 23:52: INJ, ONCE, Stop date: 12/03/22 17:52:00 ETHANOL MAINTENANCE MECHANIC propofol 3-0 No Route: IV, Mem oria (ANES) 3- Drug form: l 23:52: INJ, ONCE, Stop date: 12/03/22 17:52:00 ETHANOL MAINTENANCE MECHANIC ceFAZolin 2022-0 No Route: IV, Me moria (ANES) 3- Drug form: l 23:52: INJ, ONCE, Stop date: 12/03/22 17:52:00 ETHANOL MAINTENANCE MECHANIC ondansetron 2022-0 No Route: IV, Memoria (ANES) 3- Drug form: l 23:52: INJ, ONCE, Stop date: 12/03/22 17:52:00 ETHANOL MAINTENANCE MECHANIC Lactated 2022-0 No 1,000 mL, [place] Ringers 12-03 Rate: 75 l Injection 19:07: ml/hr, Luisito n IV 1,000 mL 00 Infuse over: 13.3 hr, Route: IV, Dosing Weight 91.364 kg, Total Volume: 1,000, Start date: 12/03/22 13:07:00 ETHANOL MAINTENANCE MECHANIC, Duration: 1 day, Stop date: 12/04/22 13:06:00 ETHANOL MAINTENANCE MECHANIC, BSA: 2.1 m2, 0 Sodium 2023-0 No 1,000 mL, Memori a Chloride 3-07 Rate: 75 l 0.9% IV 19:07: ml/hr, Momo 1,000 mL 00 Infuse over: 13.3 hr, Route: IV, Dosing Weight 91.364 kg, Total Volume: 1,000, Start date: 12/03/22 13:07:00 ETHANOL MAINTENANCE MECHANIC, Duration: 1 day, Stop date: 12/04/22 13:06:00 ETHANOL MAINTENANCE MECHANIC, BSA: 2.1 m2, 0 Lactated 2023-0 No 1,000 mL, [place] Ringers 3-07 Rate: 75 l Injection 19:07: ml/hr, Luisito n IV 1,000 mL 00 Infuse over: 13.3 hr, Route: IV, Dosing Weight 91.364 kg, Total Volume: 1,000, Start date: 12/03/22 13:07:00 ETHANOL MAINTENANCE MECHANIC, Duration: 1 day, Stop date: 12/04/22 13:06:00 ETHANOL MAINTENANCE MECHANIC, BSA: 2.1 m2, 0 Sodium 2023-0 No 1,000 mL, Memori a Chloride 3-07 Rate: 75 l 0.9% IV 19:07: ml/hr, Momo 1,000 mL 00 Infuse over: 13.3 hr, Route: IV, Dosing Weight 91.364 kg, Total Volume: 1,000, Start date: 12/03/22 13:07:00 ETHANOL MAINTENANCE MECHANIC, Duration: 1 day, Stop date: 12/04/22 13:06:00 ETHANOL MAINTENANCE MECHANIC, BSA: 2.1 m2, 0 Lactated 2023-0 No 1,000 mL, [place] Ringers 3-07 Rate: 75 l Injection 19:07: ml/hr, Luisito n IV 1,000 mL 00 Infuse over: 13.3 hr, Route: IV, Dosing Weight 91.364 kg, Total Volume: 1,000, Start date: 12/03/22 13:07:00 ETHANOL MAINTENANCE MECHANIC, Duration: 1 day, Stop date: 12/04/22 13:06:00 ETHANOL MAINTENANCE MECHANIC, BSA: 2.1 m2, 0 Sodium 2023-0 No 1,000 mL, Memori a Chloride 3-07 Rate: 75 l 0.9% IV 19:07: ml/hr, [place] 1,000 mL 00 Infuse over: 13.3 hr, Route: IV, Dosing Weight 91.364 kg, Total Volume: 1,000, Start date: 12/03/22 13:07:00 ETHANOL MAINTENANCE MECHANIC, Duration: 1 day, Stop date: 12/04/22 13:06:00 ETHANOL MAINTENANCE MECHANIC, BSA: 2.1 m2, 0 Lactated 2023-0 No 1,000 mL, [place] Ringers 3-07 Rate: 75 l Injection 19:07: ml/hr, Luisito n IV 1,000 mL 00 Infuse over: 13.3 hr, Route: IV, Dosing Weight 91.364 kg, Total Volume: 1,000, Start date: 12/03/22 13:07:00 ETHANOL MAINTENANCE MECHANIC, Duration: 1 day, Stop date: 12/04/22 13:06:00 ETHANOL MAINTENANCE MECHANIC, BSA: 2.1 m2, 0 Sodium 2023-0 No 1,000 mL, Memori a Chloride 3-07 Rate: 75 l 0.9% IV 19:07: ml/hr, Momo 1,000 mL 00 Infuse over: 13.3 hr, Route: IV, Dosing Weight 91.364 kg, Total Volume: 1,000, Start date: 12/03/22 13:07:00 ETHANOL MAINTENANCE MECHANIC, Duration: 1 day, Stop date: 12/04/22 13:06:00 ETHANOL MAINTENANCE MECHANIC, BSA: 2.1 m2, 0 Lactated 2023-0 No 1,000 mL, [place] Ringers 3-07 Rate: 75 l Injection 19:07: ml/hr, Luisito n IV 1,000 mL 00 Infuse over: 13.3 hr, Route: IV, Dosing Weight 91.364 kg, Total Volume: 1,000, Start date: 12/03/22 13:07:00 ETHANOL MAINTENANCE MECHANIC, Duration: 1 day, Stop date: 12/04/22 13:06:00 ETHANOL MAINTENANCE MECHANIC, BSA: 2.1 m2, 0 Sodium 2023-0 No 1,000 mL, Memori a Chloride 3-07 Rate: 75 l 0.9% IV 19:07: ml/hr, Momo 1,000 mL 00 Infuse over: 13.3 hr, Route: IV, Dosing Weight 91.364 kg, Total Volume: 1,000, Start date: 12/03/22 13:07:00 ETHANOL MAINTENANCE MECHANIC, Duration: 1 day, Stop date: 12/04/22 13:06:00 ETHANOL MAINTENANCE MECHANIC, BSA: 2.1 m2, 0 Lactated 3-0 No 1,000 mL, [place] Ringers 3-07 Rate: 75 l Injection 19:07: ml/hr, Luisito n IV 1,000 mL 00 Infuse over: 13.3 hr, Route: IV, Dosing Weight 91.364 kg, Total Volume: 1,000, Start date: 12/03/22 13:07:00 ETHANOL MAINTENANCE MECHANIC, Duration: 1 day, Stop date: 12/04/22 13:06:00 ETHANOL MAINTENANCE MECHANIC, BSA: 2.1 m2, 0 Sodium 2022-0 No 1,000 mL, Memori a Chloride 3-07 Rate: 75 l 0.9% IV 19:07: ml/hr, [place] 1,000 mL 00 Infuse over: 13.3 hr, Route: IV, Dosing Weight 91.364 kg, Total Volume: 1,000, Start date: 12/03/22 13:07:00 ETHANOL MAINTENANCE MECHANIC, Duration: 1 day, Stop date: 12/04/22 13:06:00 ETHANOL MAINTENANCE MECHANIC, BSA: 2.1 m2, 0 metoprolol Yes Notes: Memor ia tartrate 3-07 (Same as: l 15:00: Lopressor) metoprolol Yes Notes: Memor ia tartrate 3-07 (Same as: l 15:00: Lopressor) metoprolol Yes Notes: Memor ia tartrate 3-07 (Same as: l 15:00: Lopressor) metoprolol Yes Notes: Memor ia tartrate 3-07 (Same as: l 15:00: Lopressor) metoprolol Yes Notes: Memor ia tartrate 3-07 (Same as: l 15:00: Lopressor) metoprolol Yes Notes: Memor ia tartrate 3-07 (Same as: l 15:00: Lopressor) Renvela 2023-0 Yes Notes: Memoria 3-07 Same as: l 14:00: Renvela [place] 00 Renvela 2022-0 Yes Notes: Memoria 3-07 Same as: l 14:00: Renvela [place] 00 Renvela 2022-0 Yes Notes: Memoria 3-07 Same as: l 14:00: Renvela [place] 00 Renvela 2022-0 Yes Notes: [facility]oria 3-07 Same as: l 14:00: Renvela [place] 00 Renvela 2022-0 Yes Notes: Memoria 3- Same as: l 14:00: Renvela Momo 00 Renvela 2022-0 Yes Notes: [facility]oria 3-07 Same as: l 14:00: Renvela [place] 00 D10W 2022-0 Yes 250 mL, Memoria (bolus) IV 3-07 999 ml/hr, l 11:40: Route: IV, Momo 00 Drug Form: INJ, Dosing Weight 91.364, kg, PRN, PRN Blood Glucose Results, Start date: 12/03/22 5:40:00 ETHANOL MAINTENANCE MECHANIC, Duration: 30 day, Stop date: 01/02/23 6:39:00 CDT, Infuse over: 0.3 hr, 0 D10W 2022-0 Yes 250 mL, Memoria (bolus) IV 3-07 999 ml/hr, l 11:40: Route: IV, Momo 00 Drug Form: INJ, Dosing Weight 91.364, kg, PRN, PRN Blood Glucose Results, Start date: 12/03/22 5:40:00 ETHANOL MAINTENANCE MECHANIC, Duration: 30 day, Stop date: 01/02/23 6:39:00 CDT, Infuse over: 0.3 hr, 0 D10W 2022-0 Yes 250 mL, Memoria (bolus) IV 3-07 999 ml/hr, l 11:40: Route: IV, [place] Drug Form: INJ, Dosing Weight 91.364, kg, PRN, PRN Blood Glucose Results, Start date: 12/03/22 5:40:00 ETHANOL MAINTENANCE MECHANIC, Duration: 30 day, Stop date: 01/02/23 6:39:00 CDT, Infuse over: 0.3 hr, 0 D10W 2022-0 Yes 250 mL, Memoria (bolus) IV 3-07 999 ml/hr, l 11:40: Route: IV, Drug Form: INJ, Dosing Weight 91.364, kg, PRN, PRN Blood Glucose Results, Start date: 12/03/22 5:40:00 ETHANOL MAINTENANCE MECHANIC, Duration: 30 day, Stop date: 01/02/23 6:39:00 CDT, Infuse over: 0.3 hr, 0 D10W 2023-0 Yes 250 mL, Memoria (bolus) IV 3-07 999 ml/hr, l 11:40: Route: IV, Drug Form: INJ, Dosing Weight 91.364, kg, PRN, PRN Blood Glucose Results, Start date: 12/03/22 5:40:00 ETHANOL MAINTENANCE MECHANIC, Duration: 30 day, Stop date: 01/02/23 6:39:00 CDT, Infuse over: 0.3 hr, 0 D10W 2023-0 Yes 250 mL, Memoria (bolus) IV 3-07 999 ml/hr, l 11:40: Route: IV, Drug Form: INJ, Dosing Weight 91.364, kg, PRN, PRN Blood Glucose Results, Start date: 12/03/22 5:40:00 ETHANOL MAINTENANCE MECHANIC, Duration: 30 day, Stop date: 01/02/23 6:39:00 CDT, Infuse over: 0.3 hr, 0 Dextrose 2023-0 No 25 mL, Memoria 50% Syringe 12-03 Route: l (D50W) 10:26: IVP, Dosing Weight 91.364, kg, PRN, PRN Blood Glucose Results, Start date: 12/03/22 4:26:00 ETHANOL MAINTENANCE MECHANIC, Duration: 30 day, Stop date: 01/02/23 5:25:00 CDT glucagon 2023-0 Yes 1 mg, Memoria 3-07 Route: IM, l 10:26: Drug form: PDR/INJ, PRN, Dosing Weight 91.364, kg, PRN Blood Glucose Results, Start date: 12/03/22 4:26:00 ETHANOL MAINTENANCE MECHANIC, Duration: 30 day, Stop date: 01/02/23 5:25:00 CDT, 0 Dextrose 2023-0 No 25 mL, Memoria 50% Syringe 3 Route: l (D50W) 10:26: IVP, [place] 00 Dosing Weight 91.364, kg, PRN, PRN Blood Glucose Results, Start date: 12/03/22 4:26:00 ETHANOL MAINTENANCE MECHANIC, Duration: 30 day, Stop date: 01/02/23 5:25:00 CDT glucagon 2023-0 Yes 1 mg, Memoria 3-07 Route: IM, l 10:26: Drug form: [place] 00 PDR/INJ, PRN, Dosing Weight 91.364, kg, PRN Blood Glucose Results, Start date: 12/03/22 4:26:00 ETHANOL MAINTENANCE MECHANIC, Duration: 30 day, Stop date: 01/02/23 5:25:00 CDT, 0 Dextrose 2023-0 No 25 mL, Memoria 50% Syringe 3-07 Route: l (D50W) 10:26: IVP, Momo 00 Dosing Weight 91.364, kg, PRN, PRN Blood Glucose Results, Start date: 12/03/22 4:26:00 ETHANOL MAINTENANCE MECHANIC, Duration: 30 day, Stop date: 01/02/23 5:25:00 CDT glucagon 2023-0 Yes 1 mg, Memoria 3-07 Route: IM, l 10:26: Drug form: [place] 00 PDR/INJ, PRN, Dosing Weight 91.364, kg, PRN Blood Glucose Results, Start date: 12/03/22 4:26:00 ETHANOL MAINTENANCE MECHANIC, Duration: 30 day, Stop date: 01/02/23 5:25:00 CDT, 0 Dextrose 2023-0 No 25 mL, Memoria 50% Syringe 3-07 Route: l (D50W) 10:26: IVP, [place] 00 Dosing Weight 91.364, kg, PRN, PRN Blood Glucose Results, Start date: 12/03/22 4:26:00 ETHANOL MAINTENANCE MECHANIC, Duration: 30 day, Stop date: 01/02/23 5:25:00 CDT glucagon 2023-0 Yes 1 mg, Memoria 3-07 Route: IM, l 10:26: Drug form: Momo 00 PDR/INJ, PRN, Dosing Weight 91.364, kg, PRN Blood Glucose Results, Start date: 12/03/22 4:26:00 ETHANOL MAINTENANCE MECHANIC, Duration: 30 day, Stop date: 01/02/23 5:25:00 CDT, 0 Dextrose 2023-0 No 25 mL, Memoria 50% Syringe 3- Route: l (D50W) 10:26: IVP, Momo 00 Dosing Weight 91.364, kg, PRN, PRN Blood Glucose Results, Start date: 12/03/22 4:26:00 ETHANOL MAINTENANCE MECHANIC, Duration: 30 day, Stop date: 01/02/23 5:25:00 CDT glucagon 2023-0 Yes 1 mg, Memoria 3-07 Route: IM, l 10:26: Drug form: [place] 00 PDR/INJ, PRN, Dosing Weight 91.364, kg, PRN Blood Glucose Results, Start date: 12/03/22 4:26:00 ETHANOL MAINTENANCE MECHANIC, Duration: 30 day, Stop date: 01/02/23 5:25:00 CDT, 0 Dextrose 2023-0 No 25 mL, Memoria 50% Syringe 3 Route: l (D50W) 10:26: IVP, Momo Dosing Weight 91.364, kg, PRN, PRN Blood Glucose Results, Start date: 12/03/22 4:26:00 ETHANOL MAINTENANCE MECHANIC, Duration: 30 day, Stop date: 01/02/23 5:25:00 CDT glucagon 2023-0 Yes 1 mg, Memoria 3 Route: IM, l 10:26: Drug form: Momo 00 PDR/INJ, PRN, Dosing Weight 91.364, kg, PRN Blood Glucose Results, Start date: 12/03/22 4:26:00 ETHANOL MAINTENANCE MECHANIC, Duration: 30 day, Stop date: 01/02/23 5:25:00 CDT, 0 sevelamer 2021-0 Yes 800mg Take 800 Uni vers carbonate 6-29 mg by ity of ([place] 09:45: mouth. [place] ORAL) [address] [place] [address] metoprolol 0 Yes Take by [facility] ers succinate 6-29 mouth. ity of 25 mg CSpX 09:45: [address] sevelamer 2021-0 Yes 800mg Take 800 Uni vers carbonate 6-29 mg by ity of ([place] 09:45: mouth. [place] ORAL) [address] [place] [address] metoprolol 0 Yes Take by [facility] ers succinate 6-29 mouth. ity of 25 mg CSpX 09:45: [address] propofol 2018- No Route: IV, Mem oria (ANES) 2-27 Drug form: l 14:09: INJ, ONCE, [place] 00 Stop date: 09/24/18 8:09:00 ETHANOL MAINTENANCE MECHANIC propofol 2018 No Route: IV, Mem oria (ANES) 2-27 Drug form: l 14:09: INJ, ONCE, [place] 00 Stop date: 09/24/18 8:09:00 ETHANOL MAINTENANCE MECHANIC propofol 2018- No Route: IV, Mem oria (ANES) 2-27 Drug form: l 14:09: INJ, ONCE, Momo 00 Stop date: 09/24/18 8:09:00 ETHANOL MAINTENANCE MECHANIC propofol 2018 No Route: IV, Mem oria (ANES) 2-27 Drug form: l 14:09: INJ, ONCE, [place] 00 Stop date: 09/24/18 8:09:00 ETHANOL MAINTENANCE MECHANIC propofol 2018 No Route: IV, Mem oria (ANES) 2-27 Drug form: l 14:09: INJ, ONCE, [place] 00 Stop date: 09/24/18 8:09:00 ETHANOL MAINTENANCE MECHANIC propofol 2018 No Route: IV, Mem oria (ANES) 2-27 Drug form: l 14:09: INJ, ONCE, Stop date: 09/24/18 8:09:00 ETHANOL MAINTENANCE MECHANIC Sodium 2018 No Route: IV, Memor ia Chloride 2-27 Total l 0.9% IV 13:40: Volume: Momo (ANES) 500 00 500, Start mL date: 09/24/18 7:40:00 ETHANOL MAINTENANCE MECHANIC, Stop date: 09/24/18 8:40:00 ETHANOL MAINTENANCE MECHANIC Sodium 2018 No Route: IV, Memor ia Chloride 2-27 Total l 0.9% IV 13:40: Volume: Momo (ANES) 500 00 500, Start mL date: 09/24/18 7:40:00 ETHANOL MAINTENANCE MECHANIC, Stop date: 09/24/18 8:40:00 ETHANOL MAINTENANCE MECHANIC Sodium 2018 No Route: IV, Memor ia Chloride 2-27 Total l 0.9% IV 13:40: Volume: Momo (ANES) 500 00 500, Start mL date: 09/24/18 7:40:00 ETHANOL MAINTENANCE MECHANIC, Stop date: 09/24/18 8:40:00 ETHANOL MAINTENANCE MECHANIC Sodium 2018 No Route: IV, Memor ia Chloride 2-27 Total l 0.9% IV 13:40: Volume: [place] (ANES) 500 00 500, Start mL date: 09/24/18 7:40:00 ETHANOL MAINTENANCE MECHANIC, Stop date: 09/24/18 8:40:00 ETHANOL MAINTENANCE MECHANIC Sodium 2017-09 No Route: IV, Memor ia Chloride 2-27 Total l 0.9% IV 13:40: Volume: Momo (ANES) 500 00 500, Start mL date: 09/24/18 7:40:00 ETHANOL MAINTENANCE MECHANIC, Stop date: 09/24/18 8:40:00 ETHANOL MAINTENANCE MECHANIC Sodium 2017- No Route: IV, Memor ia Chloride 2-27 Total l 0.9% IV 13:40: Volume: Momo (ANES) 500 00 500, Start mL date: 09/24/18 7:40:00 ETHANOL MAINTENANCE MECHANIC, Stop date: 09/24/18 8:40:00 ETHANOL MAINTENANCE MECHANIC polyethylen 2017-09 No See Memori a e glycol - Instructio l 3350 with 20:43: ns, as Luisito n electrolyte 00 directed, s oral # 4,000 powder for mL, 0 solution Refill(s), Pharmacy: [facility], this is the generic of Golytely being used as a bowel prep, not Miralax polyethylen 2017-09 No See Memori a e glycol - Instructio l 3350 with 20:43: ns, as Luisito n electrolyte 00 directed, s oral # 4,000 powder for mL, 0 solution Refill(s), Pharmacy: [facility], this is the generic of Golytely being used as a bowel prep, not Miralax polyethylen 2017-09 No See Memori a e glycol -27 Instructio l 3350 with 20:43: ns, as Luisito n electrolyte 00 directed, s oral # 4,000 powder for mL, 0 solution Refill(s), Pharmacy: [facility], this is the generic of Golytely being used as a bowel prep, not Miralax polyethylen 2017-09 No See Memori a e glycol -27 Instructio l 3350 with 20:43: ns, as Luisito n electrolyte 00 directed, s oral # 4,000 powder for mL, 0 solution Refill(s), Pharmacy: [facility], this is the generic of Golytely being used as a bowel prep, not Miralax polyethylen 2017-09 No See Memori a e glycol - Instructio l 3350 with 20:43: ns, as Luisito n electrolyte 00 directed, s oral # 4,000 powder for mL, 0 solution Refill(s), Pharmacy: [facility], this is the generic of Golytely being used as a bowel prep, not Miralax polyethylen 2017-09 No See Memori a e glycol 10-25 Instructio l 3350 with 20:43: ns, as Luisito n electrolyte 00 directed, s oral # 4,000 powder for mL, 0 solution Refill(s), Pharmacy: [facility], this is the generic [...] tab, PO, l tablet 20:08: Daily, 0 [place] 00 Refill(s) losartan 50 2017-09 Yes 50 mg = 1 M emoria mg oral 1-27 tab, PO, l tablet 20:08: Daily, 0 [place] 00 Refill(s) losartan 50 2017-09 Yes 50 mg = 1 M emoria mg oral 1-27 tab, PO, l tablet 20:08: Daily, 0 [place] 00 Refill(s) Saline 2017-09 No Notes: Memoria Flush 0.9% 0-30 (Same as: l 17:40: BD Momo 00 Posiflush) Sodium 2017-09 No 500 mL, Memoria Chloride 0-30 500 ml/hr, l 0.9% 17:40: Infuse [place] (Bolus) IV 00 Over: 1 hr, Route: IV, 500, Drug form: INJ, ONCE, Priority: STAT, Dosing Weight 93.182 kg, Start date: 07/28/18 12:40:00 CDT, Stop date: 07/28/18 12:40:00 CDT Saline 2017-09 No Notes: Memoria Flush 0.9% 0-30 (Same as: l 17:40: BD Momo 00 Posiflush) Sodium 2017-09 No 500 mL, Memoria Chloride 0-30 500 ml/hr, l 0.9% 17:40: Infuse [place] (Bolus) IV 00 Over: 1 hr, Route: IV, 500, Drug form: INJ, ONCE, Priority: STAT, Dosing Weight 93.182 kg, Start date: 07/28/18 12:40:00 CDT, Stop date: 07/28/18 12:40:00 CDT Saline 2017-09 No Notes: Memoria Flush 0.9% 0-30 (Same as: l 17:40: BD [place] 00 Posiflush) Sodium 2017-09 No 500 mL, Memoria Chloride 0-30 500 ml/hr, l 0.9% 17:40: Infuse [place] (Bolus) IV 00 Over: 1 hr, Route: IV, 500, Drug form: INJ, ONCE, Priority: STAT, Dosing Weight 93.182 kg, Start date: 07/28/18 12:40:00 CDT, Stop date: 07/28/18 12:40:00 CDT Saline 2017-09 No Notes: Memoria Flush 0.9% 0-30 (Same as: l 17:40: BD [place] 00 Posiflush) Sodium 2017-09 No 500 mL, Memoria Chloride 0-30 500 ml/hr, l 0.9% 17:40: Infuse Momo (Bolus) IV 00 Over: 1 hr, Route: IV, 500, Drug form: INJ, ONCE, Priority: STAT, Dosing Weight 93.182 kg, Start date: 07/28/18 12:40:00 CDT, Stop date: 07/28/18 12:40:00 CDT Saline 2017-09 No Notes: Memoria Flush 0.9% 0-30 (Same as: l 17:40: BD [place] 00 Posiflush) Sodium 2017-09 No 500 mL, Memoria Chloride 0-30 500 ml/hr, l 0.9% 17:40: Infuse [place] (Bolus) IV 00 Over: 1 hr, Route: IV, 500, Drug form: INJ, ONCE, Priority: STAT, Dosing Weight 93.182 kg, Start date: 07/28/18 12:40:00 CDT, Stop date: 07/28/18 12:40:00 CDT Saline 2017-09 No Notes: Memoria Flush 0.9% 0-30 (Same as: l 17:40: BD Momo 00 Posiflush) Sodium 2017-09 No 500 mL, Memoria Chloride 0-30 500 ml/hr, l 0.9% 17:40: Infuse [place] (Bolus) IV 00 Over: 1 hr, Route: IV, 500, Drug form: INJ, ONCE, Priority: STAT, Dosing Weight 93.182 kg, Start date: 07/28/18 12:40:00 CDT, Stop date: 07/28/18 12:40:00 CDT clindamycin No 300 mg = 1 Memoria 300 mg oral 7-17 cap, PO, l capsule 15:00: Q6H, X 10 Joanna nn 00 day, # 40 cap, 0 Refill(s), Pharmacy: [facility] Mupirocin No 1 appl, Memor ia 0.02 MG/MG 7-17 TOP, TID, l Topical 15:00: PRN as [place] Ointment 00 needed, [Bactroban] Apply to affected area(s), X 10 day, # 22 gm, 0 Refill(s), Pharmacy: [facility] clindamycin No 300 mg = 1 Memoria 300 mg oral 7-17 cap, PO, l capsule 15:00: Q6H, X 10 Joanna nn 00 day, # 40 cap, 0 Refill(s), Pharmacy: [facility] Mupirocin No 1 appl, Memor ia 0.02 MG/MG 7-17 TOP, TID, l Topical 15:00: PRN as Momo Ointment 00 needed, [Bactroban] Apply to affected area(s), X 10 day, # 22 gm, 0 Refill(s), Pharmacy: [facility] clindamycin No 300 mg = 1 Memoria 300 mg oral 7-17 cap, PO, l capsule 15:00: Q6H, X 10 Joanna nn 00 day, # 40 cap, 0 Refill(s), Pharmacy: [facility] Mupirocin No 1 appl, Memor ia 0.02 MG/MG 7-17 TOP, TID, l Topical 15:00: PRN as Momo Ointment 00 needed, [Bactroban] Apply to affected area(s), X 10 day, # 22 gm, 0 Refill(s), Pharmacy: [facility] clindamycin No 300 mg = 1 Memoria 300 mg oral 7-17 cap, PO, l capsule 15:00: Q6H, X 10 Joanna nn 00 day, # 40 cap, 0 Refill(s), Pharmacy: [facility] Mupirocin No 1 appl, Memor ia 0.02 MG/MG 7-17 TOP, TID, l Topical 15:00: PRN as Momo Ointment 00 needed, [Bactroban] Apply to affected area(s), X 10 day, # 22 gm, 0 Refill(s), Pharmacy: [facility] clindamycin No 300 mg = 1 Memoria 300 mg oral 7-17 cap, PO, l capsule 15:00: Q6H, X 10 Joanna nn 00 day, # 40 cap, 0 Refill(s), Pharmacy: [facility] Mupirocin No 1 appl, Memor ia 0.02 MG/MG 7-17 TOP, TID, l Topical 15:00: PRN as [place] Ointment 00 needed, [Bactroban] Apply to affected area(s), X 10 day, # 22 gm, 0 Refill(s), Pharmacy: [facility] clindamycin No 300 mg = 1 Memoria 300 mg oral 7-17 cap, PO, l capsule 15:00: Q6H, X 10 Joanna nn 00 day, # 40 cap, 0 Refill(s), Pharmacy: [facility] Mupirocin No 1 appl, Memor ia 0.02 MG/MG 7-17 TOP, TID, l Topical 15:00: PRN as Momo Ointment 00 needed, [Bactroban] Apply to affected area(s), X 10 day, # 22 gm, 0 Refill(s), Pharmacy: [facility] Cefazolin No Notes: Memori a 6 (Same As: l 14:00: Ancef, [place] 00 Kefzol) MEDICATION WASTE Product Size: 1000 mg Product Wasted: ___ mg Cefazolin 2017-0 No Notes: Memori a 03-02 (Same As: l 14:00: Ancef, [place] 00 Kefzol) MEDICATION WASTE Product Size: 1000 mg Product Wasted: ___ mg Cefazolin 2017-0 No Notes: Memori a 03-02 (Same As: l 14:00: Ancef, [place] 00 Kefzol) MEDICATION WASTE Product Size: 1000 mg Product Wasted: ___ mg Cefazolin 2017-0 No Notes: Memori a 03-02 (Same As: l 14:00: Ancef, [place] 00 Kefzol) MEDICATION WASTE Product Size: 1000 mg Product Wasted: ___ mg Cefazolin 2017-0 No Notes: Memori a 03-02 (Same As: l 14:00: Ancef, [place] 00 Kefzol) MEDICATION WASTE Product Size: 1000 mg Product Wasted: ___ mg Cefazolin 2017-0 No Notes: Memori a 03-02 (Same As: l 14:00: Ancef, [place] 00 Kefzol) MEDICATION WASTE Product Size: 1000 mg Product Wasted: ___ mg Restoril 2017-0 No Notes: Memoria 6-04 (Same As: l 13:48: Restoril) [place] 00 Restoril 2017-0 No Notes: Memoria 6-04 (Same As: l 13:48: Restoril) [place] Restoril 2017-0 No Notes: Memoria 6-04 (Same As: l 13:48: Restoril) [place] 00 Restoril 0 No Notes: Memoria 6-04 (Same As: l 13:48: Restoril) [place] Restoril 0 No Notes: Memoria 6-04 (Same As: l 13:48: Restoril) Restoril 0 No Notes: Memoria 03-02 (Same As: l 13:48: Restoril) metoprolol 0 Yes 50 mg = 1 Me moria tartrate 50 5-30 tab, PO, l mg oral 20:14: Q12H, # [place] tablet 00 180 tab, 1 Refill(s), Pharmacy: [facility] metoprolol Yes 50 mg = 1 Me moria tartrate 50 5-30 tab, PO, l mg oral 20:14: Q12H, # [place] tablet 00 180 tab, 1 Refill(s), Pharmacy: [facility] 546 metoprolol Yes 50 mg = 1 Me moria tartrate 50 5-30 tab, PO, l mg oral 20:14: Q12H, # [place] tablet 00 180 tab, 1 Refill(s), Pharmacy: [facility] 546 metoprolol Yes 50 mg = 1 Me moria tartrate 50 5-30 tab, PO, l mg oral 20:14: Q12H, # [place] tablet 00 180 tab, 1 Refill(s), Pharmacy: [facility] 546 metoprolol Yes 50 mg = 1 Me moria tartrate 50 5-30 tab, PO, l mg oral 20:14: Q12H, # [place] tablet 00 180 tab, 1 Refill(s), Pharmacy: [facility] 546 metoprolol Yes 50 mg = 1 Me moria tartrate 50 5-30 tab, PO, l mg oral 20:14: Q12H, # [place] tablet 00 180 tab, 1 Refill(s), Pharmacy: [facility] 546 amLODIPine Yes 10 mg = 1 Me moria 10 mg oral 5-30 tab, PO, l tablet 20:13: Daily, # [place] 00 90 tab, 0 Refill(s), Pharmacy: [facility] 546 amLODIPine Yes 10 mg = 1 Me moria 10 mg oral 5-30 tab, PO, l tablet 20:13: Daily, # [place] 00 90 tab, 0 Refill(s), Pharmacy: [facility] 546 amLODIPine 2018-0 Yes 10 mg = 1 Me moria 10 mg oral 5-30 tab, PO, l tablet 20:13: Daily, # [place] 00 90 tab, 0 Refill(s), Pharmacy: [facility] 546 amLODIPine 0 Yes 10 mg = 1 Me moria 10 mg oral 5-30 tab, PO, l tablet 20:13: Daily, # [place] 00 90 tab, 0 Refill(s), Pharmacy: [facility] 546 amLODIPine Yes 10 mg = 1 Me moria 10 mg oral 5-30 tab, PO, l tablet 20:13: Daily, # [place] 00 90 tab, 0 Refill(s), Pharmacy: [facility] 546 amLODIPine 0 Yes 10 mg = 1 Me mor[place] 10 mg oral 5-30 tab, PO, l tablet 20:13: Daily, # [place] 00 90 tab, 0 Refill(s), Pharmacy: [facility] 546 Fentanyl Yes Notes: Memoria 4-05 (Same as: l 15:40: Sublimaze) Preservati ve free. Flumazenil Yes Notes: Memor ia 4-05 (Same as: l 15:40: Romazicon) Naloxone Yes Notes: Memoria 4-05 Same as l 15:40: Narcan Acetaminoph No 1,000 mg, M emoria en 405 Route: l 15:40: IVPB, Drug form: INJ, [...] ia 4-05 Route: l 15:40: IVP, ONCE, [place] Dosing Weight 103.182, kg, PRN Nausea & Vomiting, Start date: 01/01/18 10:40:00 CDT Fentanyl 2017-0 Yes Notes: Memoria 4-05 (Same as: l 15:40: Sublimaze) [place] 00 Preservati ve free. Flumazenil Yes Notes: Memor ia 4-05 (Same as: l 15:40: Romazicon) [place] Naloxone 0 Yes Notes: [facility] 4-05 Same as l 15:40: Narcan [place] Acetaminoph 0 No 1,000 mg, M emoria en 01-01 Route: l 15:40: IVPB, Drug [place] form: INJ, ONCE, Dosing Weight 103.182, kg, PRN Pain Score 1-3, Start date: 01/01/18 10:40:00 CDT Ondansetron 2017-0 No 4 mg, Memor ia 4-05 Route: l 15:40: IVP, ONCE, [place] 00 Dosing Weight 103.182, kg, PRN Nausea & Vomiting, Start date: 01/01/18 10:40:00 CDT Fentanyl 2018-0 Yes Notes: [facility] 4-05 (Same as: l 15:40: Sublimaze) [place] 00 Preservati ve free. Flumazenil 2018-0 Yes Notes: Memor ia 4-05 (Same as: l 15:40: Romazicon) [place] 00 Naloxone 2017-0 Yes Notes: [facility] 4-05 Same as l 15:40: Narcan [place] 00 Acetaminoph 0 No 1,000 mg, M emoria en 4-05 Route: l 15:40: IVPB, Drug [place] 00 form: INJ, ONCE, Dosing Weight 103.182, kg, PRN Pain Score 1-3, Start date: 01/01/18 10:40:00 CDT Ondansetron 2018-0 No 4 mg, Memor ia 4-05 Route: l 15:40: IVP, ONCE, Dosing Weight 103.182, kg, PRN Nausea & Vomiting, Start date: 01/01/18 10:40:00 CDT Fentanyl 2018-0 Yes Notes: [facility] 4-05 (Same as: l 15:40: Sublimaze) [place] Preservati ve free. Flumazenil 2018-0 Yes Notes: Memor ia 4-05 (Same as: l 15:40: Romazicon) [place] 00 Naloxone 2018-0 Yes Notes: [facility] 4-05 Same as l 15:40: Narcan [place] Acetaminoph 2017-0 No 1,000 mg, M emoria en 05 Route: l 15:40: IVPB, Drug [place] 00 form: INJ, ONCE, Dosing Weight 103.182, kg, PRN Pain Score 1-3, Start date: 01/01/18 10:40:00 CDT Ondansetron 2018-0 No 4 mg, Mem[facility] 4-05 Route: l 15:40: IVP, ONCE, Dosing Weight 103.182, kg, PRN Nausea & Vomiting, Start date: 01/01/18 10:40:00 CDT Fentanyl 2018-0 Yes Notes: [facility] 4-05 (Same as: l 15:40: Sublimaze) [place] 00 Preservati ve free. Flumazenil 2018-0 Yes Notes: Memor ia 4-05 (Same as: l 15:40: Romazicon) [place] 00 Naloxone 2018-0 Yes Notes: [facility] 4-05 Same as l 15:40: Narcan [place] 00 Acetaminoph 2018-0 No 1,000 mg, M emoria en 05 Route: l 15:40: IVPB, Drug [place] 00 [...] 4-05 Drug form: l 15:27: INJ, ONCE, [place] 00 Stop date: 01/01/18 10:27:00 CDT ondansetron 2017-0 [...] 0 No Route: IV, Me moria (ANES) 4-05 Drug form: l 15:27: INJ, ONCE, Stop date: 01/01/18 10:27:00 CDT ondansetron 2017-0 No Route: IV, [facility]oria (ANES) 4-05 Drug form: l 15:27: INJ, ONCE, Stop date: 01/01/18 10:27:00 CDT protamine 0 No Route: IV, Me moria (ANES) 4-05 Drug form: l 15:27: INJ, ONCE, Stop date: 01/01/18 10:27:00 CDT ondansetron 0 No Route: IV, [facility] (ANES) 4-05 Drug [...] 2017-0 No Route: IV, Me moria (ANES) 01-01 Drug form: l 15:27: INJ, ONCE, Stop date: 01/01/18 10:27:00 CDT ondansetron No Route: IV, Mem[facility] (ANES) 4 Drug form: l 15:27: INJ, ONCE, Stop date: 01/01/18 10:27:00 CDT heparin No Route: IV, Tico jessi (ANES) 01-01 Drug form: l 14:49: INJ, ONCE, Stop date: 01/01/18 9:49:00 CDT heparin 0 No Route: IV, Tico jessi (ANES) 01-01 Drug form: l 14:49: INJ, ONCE, Stop date: 01/01/18 9:49:00 CDT heparin 0 No Route: IV, Tico jessi (ANES) 01-01 [...] ONCE, Stop date: 01/01/18 9:49:00 CDT glycopyrrol 0 No Route: IV, Memoria ate (ANES) 01-01 Drug form: l 14:34: INJ, ONCE, Stop date: 01/01/18 9:34:00 CDT glycopyrrol 0 No Route: IV, Memoria ate (ANES) 4-05 Drug form: l 14:34: INJ, ONCE, [place] 00 Stop date: 01/01/18 9:34:00 CDT glycopyrrol 2018-0 No Route: IV, Memoria ate (ANES) 4-05 Drug form: l 14:34: INJ, ONCE, [place] 00 Stop date: 01/01/18 9:34:00 CDT glycopyrrol 2018-0 No Route: IV, Memoria ate (ANES) 4- Drug form: l 14:34: INJ, ONCE, [place] 00 Stop date: 01/01/18 9:34:00 CDT glycopyrrol 2018-0 No Route: IV, Memoria ate (ANES) 4- Drug form: l 14:34: INJ, ONCE, [place] 00 Stop date: 01/01/18 9:34:00 CDT glycopyrrol 2018-0 No Route: IV, Memoria ate (ANES) 4- [...] 4- Drug form: l 14:04: INJ, ONCE, [place] 00 Stop date: 01/01/18 9:04:00 CDT propofol 2018-0 No Route: IV, Mem oria (ANES) 4-05 Drug form: l 14:04: INJ, ONCE, [place] Stop date: 01/01/18 9:04:00 CDT lidocaine 2018-0 No Route: IV, Me moria (ANES) 4-05 Drug form: l 14:04: INJ, ONCE, [place] 00 Stop date: 01/01/18 9:04:00 CDT midazolam 2018-0 No Route: IV, Me moria (ANES) 4-05 Drug form: l 14:04: SOLN, [place] 00 ONCE, Stop date: 01/01/18 9:04:00 CDT fentaNYL 2018-0 No Route: IV, Mem oria (ANES) 4-05 Drug form: l 14:04: INJ, ONCE, [place] 00 Stop date: 01/01/18 9:04:00 CDT propofol 2018-0 No Route: IV, Mem oria (ANES) 4-05 Drug form: l 14:04: INJ, ONCE, [place] Stop date: 01/01/18 9:04:00 CDT lidocaine 2018-0 No Route: IV, Me moria (ANES) 4-05 Drug form: l 14:04: INJ, ONCE, [place] 00 Stop date: 01/01/18 9:04:00 CDT midazolam 2018-0 No Route: IV, Me moria (ANES) 4-05 Drug form: l 14:04: SOLN, [place] 00 ONCE, Stop date: 01/01/18 9:04:00 CDT fentaNYL 2018-0 No Route: IV, Mem oria (ANES) 4-05 Drug form: l 14:04: INJ, ONCE, [place] Stop date: 01/01/18 9:04:00 CDT propofol 2018-0 No Route: IV, Mem oria (ANES) 4-05 Drug form: l 14:04: INJ, ONCE, [place] 00 Stop date: 01/01/18 9:04:00 CDT lidocaine 2018-0 No Route: IV, Me moria (ANES) 4- Drug form: l 14:04: INJ, ONCE, [place] 00 Stop date: 01/01/18 9:04:00 CDT midazolam 2018-0 No Route: IV, Me moria (ANES) 4- Drug form: l 14:04: SOLN, [place] ONCE, Stop date: 01/01/18 9:04:00 CDT fentaNYL 2018-0 No Route: IV, Mem oria (ANES) 4-05 Drug form: l 14:04: INJ, ONCE, [place] 00 Stop date: 01/01/18 9:04:00 CDT propofol 2018-0 No Route: IV, Mem oria (ANES) 4- Drug form: l 14:04: INJ, ONCE, [place] [...] 4- Drug form: l 14:04: INJ, ONCE, [place] 00 Stop date: 01/01/18 9:04:00 CDT Renvela 2018-0 Yes Notes: [facility] 4-05 Same as: l 14:00: Renvela multivitami 2017-0 Yes Notes: Tico jessi n 4-05 (Same l 14:00: as:Thera) WASTE: F/P - Black; E - Municipal Trash Bin Take with food. Renvela 2018-0 Yes Notes: [facility] 4-05 Same as: l 14:00: Renvela [place] 00 multivitami Yes Notes: Tico jessi n 4-05 (Same l 14:00: as:Thera) [place] WASTE: F/P - Black; E - Municipal Trash Bin Take with food. Renvela Yes Notes: [facility] 4-05 Same as: l 14:00: Renvela [place] 00 multivitami Yes Notes: Tico jessi n 4-05 (Same l 14:00: as:Thera) [place] WASTE: F/P - Black; E - Municipal Trash Bin Take with food. Renvela Yes Notes: [facility]oria 4-05 Same as: l 14:00: Renvela [place] multivitami Yes Notes: Tico jessi n 4-05 (Same l 14:00: as:Thera) [place] WASTE: F/P - Black; E - Municipal Trash Bin Take with food. Yes Notes: Memoria 4-05 Same as: l 14:00: Renvela [place] multivitami Yes Notes: Tico jessi n 4-05 (Same l 14:00: as:Thera) [place] WASTE: F/P - Black; E - Municipal Trash Bin Take with food. vela Yes Notes: Memoria 4-05 Same as: l 14:00: Renvela [place] multivitami Yes Notes: Tico jessi n 4-05 (Same l 14:00: as:Thera) [place] WASTE: F/P - Black; E - Municipal Trash Bin Take with food. phenylephri No Route: IV, Memoria ne (ANES) 01-01 Drug form: l 100 13:44: INJ, Start [place] microgram 00 date: 01/01/18 8:44:00 CDT, Stop date: 01/01/18 9:44:00 CDT phenylephri No Route: IV, Memoria ne (ANES) 01-01 Drug form: l 100 13:44: INJ, Start [place] microgram 00 date: 01/01/18 8:44:00 CDT, Stop [...] Drug form: l 100 13:44: INJ, Start [place] microgram date: 01/01/18 8:44:00 CDT, Stop date: [...] not exceed l #3 13:43: 4gm/day of [place] acetaminop hen. (Same as: Tylenol with Codeine # 3) Acetaminoph No Notes: Tico jessi en 325 MG / 4-05 (Same as: l Hydrocodone 13:43: [place] Joanna nn Bitartrate 00 325/5) Do 5 MG Oral not exceed Tablet 4gm/day of acetaminop hen. Zofran No Notes: Memoria 4-05 (Same as: l 13:43: Zofran) [place] MEDICATION WASTE Product Size: 4 mg Product Wasted: ___ mg NS 0.45% IV No 1,000 mL, M emoria 1,000 mL 4-05 Rate: 50 l 13:43: ml/hr, [place] 00 Infuse over: 20 hr, Route: IV, [...] / 4-05 (Same as: l Hydrocodone 13:43: [place] Joanna nn Bitartrate 00 325/5) Do 5 MG Oral not exceed Tablet 4gm/day of acetaminop hen. Zofran No Notes: Memoria 4-05 (Same as: l 13:43: Zofran) [place] MEDICATION WASTE Product Size: 4 mg Product Wasted: ___ mg NS 0.45% IV No 1,000 mL, M emoria 1,000 mL 01-01 Rate: 50 l 13:43: ml/hr, [place] Infuse over: 20 hr, Route: IV, Dosing Weight 103.182 kg, Total Volume: 1,000, Start date: 01/01/18 8:43:00 CDT, Duration: 30 day, Stop date: 01/31/18 8:42:00 CDT, 2.24, m2 Morphine No Notes: Memoria 4-05 (Same l 13:43: as:MORPhin [place] 00 e Sulfate) Acetaminoph No Notes: Do M emoria en 4-05 not exceed l 13:43: 4 gm/day. [place] (Same as: Tylenol) acetaminoph No Notes: Do M emoria en-codeine 4-05 not exceed l #3 13:43: 4gm/day of [place] acetaminop hen. (Same as: Tylenol with Codeine # 3) Acetaminoph No Notes: Tico jessi en 325 MG / -05 (Same as: l Hydrocodone 13:43: [place] Joanna nn Bitartrate 00 325/5) Do 5 MG Oral not exceed Tablet 4gm/day of acetaminop hen. Zofran No Notes: Memoria 4-05 (Same as: l 13:43: Zofran) [place] 00 MEDICATION WASTE Product Size: 4 mg Product Wasted: ___ mg NS 0.45% IV No 1,000 mL, M emoria 1,000 mL 05 Rate: 50 l 13:43: ml/hr, [place] 00 Infuse over: 20 hr, Route: IV, [...] / 4-05 (Same as: l Hydrocodone 13:43: [place] Joanna nn Bitartrate 00 325/5) Do 5 [...] 4-05 not exceed l 13:43: 4 gm/day. [place] 00 (Same as: Tylenol) acetaminoph No Notes: Do M emoria en-codeine 4-05 not exceed l #3 13:43: 4gm/day of [place] acetaminop hen. (Same as: Tylenol with Codeine # 3) Acetaminoph No Notes: Tico jessi en 325 MG / 4-05 (Same as: l Hydrocodone 13:43: [place] Joanna nn Bitartrate 00 325/5) Do 5 [...] / 01-01 (Same as: l Hydrocodone 13:43: [place] Joanna nn Bitartrate 00 325/5) Do 5 [...] Drug form: l mg 13:39: INJ, Start [place] 00 date: 01/01/18 8:39:00 CDT, Stop date: 01/01/18 9:39:00 CDT vancomycin 2018-0 No Route: IV, Jossy hardwicka (ANES) 01-01 Drug form: l mg 13:39: INJ, Start [place] 00 date: 01/01/18 8:39:00 CDT, Stop date: 01/01/18 9:39:00 CDT vancomycin 2018-0 No Route: IV, Jossy dasria (ANES) 01-01 Drug form: l mg 13:39: INJ, Start [place] 00 date: 01/01/18 8:39:00 CDT, Stop date: 01/01/18 9:39:00 CDT vancomycin 2018-0 No Route: IV, Jossy hardwicka (ANES) 01-01 Drug form: l mg 13:39: [...] 4-05 Total l 0.9% IV 13:31: Volume: [place] (ANES) 500 00 500, Start mL date: 01/01/18 8:31:00 CDT, Stop date: 01/01/18 9:31:00 CDT Sodium 2018-0 No Route: IV, Memor ia Chloride 4-05 Total l 0.9% IV 13:31: Volume: [place] (ANES) 500 00 500, Start mL date: 01/01/18 8:31:00 CDT, Stop date: 01/01/18 9:31:00 CDT Sodium 2018-0 No Route: IV, Memor ia Chloride 4-05 Total l 0.9% IV 13:31: Volume: [place] (ANES) 500 00 500, Start mL date: [...] 100.057, kg, Daily, Start date: 11/14/17 9:00:00 ETHANOL MAINTENANCE MECHANIC, Duration: 30 day, Stop date: 12/13/17 9:00:00 CDT Vitamin 2018-0 No 1 tab, Memoria B-100 2-16 Route: PO, l 15:00: Dosing [place] 00 Weight 100.057, kg, Daily, Start date: 11/14/17 9:00:00 ETHANOL MAINTENANCE MECHANIC, Duration: 30 day, Stop date: 12/13/17 9:00:00 CDT Vitamin 2018-0 No 1 tab, Mem[facility] B-100 2-16 Route: PO, l 15:00: Dosing [place] 00 Weight 100.057, kg, Daily, Start date: 11/14/17 9:00:00 ETHANOL MAINTENANCE MECHANIC, Duration: 30 day, Stop date: 12/13/17 9:00:00 CDT Vitamin 2018-0 No 1 tab, Mem[facility] B-100 2-16 Route: PO, l 15:00: Dosing [place] 00 Weight 100.057, kg, Daily, Start date: 11/14/17 9:00:00 ETHANOL MAINTENANCE MECHANIC, Duration: 30 day, Stop date: 12/13/17 9:00:00 CDT Vitamin 2018-0 No 1 tab, Mem[facility] B-100 2-16 Route: PO, l 15:00: Dosing [place] 00 Weight 100.057, kg, Daily, Start date: 11/14/17 9:00:00 ETHANOL MAINTENANCE MECHANIC, Duration: 30 day, Stop date: 12/13/17 9:00:00 CDT Vitamin No 1 tab, [facility] B-100 2-16 Route: PO, l 15:00: Dosing Weight 100.057, kg, Daily, Start date: 11/14/17 9:00:00 ETHANOL MAINTENANCE MECHANIC, Duration: 30 day, Stop date: 12/13/17 9:00:00 CDT Renvela No Notes: Memoria 2-15 Same as: l 23:00: Renvela [place] Renvela No Notes: Memoria 2-15 Same as: l 23:00: Renvela Momo Renvela No Notes: [facility]oria 2-15 Same as: l 23:00: Renvela [place] Renvela No Notes: [facility]oria 2-15 Same as: l 23:00: Renvela [place] Renvela No Notes: Memoria 2-15 Same as: l 23:00: Renvela [place] Renvela No Notes: Memoria 2-15 Same as: l 23:00: Renvela [place] Fentanyl No Notes: Memoria 2-15 (Same as: [...] 2-15 (Same as: l 21:23: Sublimaze) [place] 00 Preservati ve free. Naloxone No Notes: Memoria 2-15 Same as l 21:23: Narcan [place] Flumazenil No Notes: Memor ia 2-15 (Same as: l 21:23: Romazicon) [place] Acetaminoph No Notes: Tico jessi en 2-15 Infuse l 21:23: over 15 [place] 00 minutes Do not exceed 4gm/day of acetaminop hen MEDICATION WASTE Product Size: 1000 mg Product Wasted: ___ mg Ondansetron 2018- No Notes: Tico jessi 2-15 (Same as: l 21:23: Zofran) [place] MEDICATION WASTE Product Size: 4 mg Product Wasted: ___ mg Fentanyl 2018- No Notes: Memoria 2-15 (Same as: l 21:23: Sublimaze) [place] 00 Preservati ve free. Naloxone No Notes: Memoria 2-15 Same as l 21:23: Narcan [place] Flumazenil No Notes: Memor ia 2-15 (Same as: l 21:23: Romazicon) [place] Acetaminoph No Notes: Tico jessi en 2-15 Infuse l 21:23: over 15 [place] 00 minutes Do not exceed 4gm/day of [...] ia 2-15 (Same as: l 21:23: Romazicon) [place] Acetaminoph No Notes: Tico jessi en 2-15 Infuse l 21:23: over 15 [place] 00 minutes Do not exceed 4gm/day of acetaminop hen MEDICATION WASTE Product Size: 1000 mg Product Wasted: ___ mg Ondansetron 2018-0 No Notes: Tico jessi 2-15 (Same as: l 21:23: Zofran) [place] 00 MEDICATION WASTE Product Size: 4 mg Product Wasted: ___ mg Fentanyl 2018- No Notes: Memoria 2-15 (Same as: l 21:23: Sublimaze) [place] 00 Preservati ve free. Naloxone No Notes: Memoria 2-15 Same as l 21:23: Narcan [place] 00 Flumazenil No Notes: Memor ia 2-15 (Same as: l 21:23: Romazicon) [place] 00 Acetaminoph No Notes: Tico jessi en 2-15 Infuse l 21:23: over 15 [place] 00 minutes Do not exceed 4gm/day of acetaminop hen MEDICATION WASTE Product Size: 1000 mg Product Wasted: ___ mg Ondansetron 2018- No Notes: Tico jessi 2-15 (Same as: l 21:23: Zofran) [place] 00 MEDICATION WASTE Product Size: 4 mg Product Wasted: ___ mg Fentanyl 2017-0 No Notes: Memoria 2-15 (Same as: l 21:23: Sublimaze) [place] 00 Preservati ve free. Naloxone No Notes: Memoria 2-15 Same as l 21:23: Narcan [place] Flumazenil No Notes: Memor ia 2-15 (Same as: l 21:23: Romazicon) [place] Acetaminoph No Notes: Tico jessi en 2-15 Infuse l 21:23: over 15 [place] 00 minutes Do not exceed 4gm/day of acetaminop hen MEDICATION WASTE Product Size: 1000 mg Product Wasted: ___ mg Ondansetron 2018-0 No Notes: Tico jessi 2-15 (Same as: l 21:23: Zofran) [place] 00 MEDICATION WASTE Product Size: 4 mg Product Wasted: ___ mg ondansetron 2018-0 No Route: IV, Memoria (ANES) 2-15 Drug form: l 20:57: INJ, ONCE, Stop date: 11/13/17 14:57:00 ETHANOL MAINTENANCE MECHANIC ondansetron 2018-0 No Route: IV, Memoria (ANES) 2-15 Drug form: l 20:57: INJ, ONCE, Stop date: 11/13/17 14:57:00 ETHANOL MAINTENANCE MECHANIC ondansetron 2018-0 No Route: IV, Memoria (ANES) 2-15 Drug form: l 20:57: INJ, ONCE, Stop date: 11/13/17 14:57:00 ETHANOL MAINTENANCE MECHANIC ondansetron 2018-0 No Route: IV, Memoria (ANES) 2-15 Drug form: l 20:57: INJ, ONCE, Stop date: 11/13/17 14:57:00 ETHANOL MAINTENANCE MECHANIC ondansetron 2018-0 No Route: IV, Memoria (ANES) 2-15 Drug form: l 20:57: INJ, ONCE, Stop date: 11/13/17 14:57:00 ETHANOL MAINTENANCE MECHANIC ondansetron 2018-0 No Route: IV, Memoria (ANES) 2-15 Drug form: l 20:57: INJ, ONCE, Stop date: 11/13/17 14:57:00 ETHANOL MAINTENANCE MECHANIC ePHEDrine 2018-0 No Route: IV, Me moria (ANES) 2-15 Drug form: l 20:44: INJ, ONCE, Stop date: 11/13/17 14:44:00 ETHANOL MAINTENANCE MECHANIC ePHEDrine 2018-0 No Route: IV, Me moria (ANES) 2-15 Drug form: l 20:44: INJ, ONCE, Stop date: 11/13/17 14:44:00 ETHANOL MAINTENANCE MECHANIC ePHEDrine 2018-0 No Route: IV, Me moria (ANES) 2-15 Drug form: l 20:44: INJ, ONCE, Stop date: 11/13/17 14:44:00 ETHANOL MAINTENANCE MECHANIC ePHEDrine 2018-0 No Route: IV, Me moria (ANES) 2-15 Drug form: l 20:44: INJ, ONCE, Stop date: 11/13/17 14:44:00 ETHANOL MAINTENANCE MECHANIC ePHEDrine 2018-0 No Route: IV, Me moria (ANES) 2-15 Drug form: l 20:44: INJ, ONCE, Stop date: 11/13/17 14:44:00 ETHANOL MAINTENANCE MECHANIC ePHEDrine 2018-0 No Route: IV, Me moria (ANES) 2-15 Drug form: l 20:44: INJ, ONCE, Stop date: 11/13/17 14:44:00 ETHANOL MAINTENANCE MECHANIC propofol 2018-0 No Route: IV, Mem oria (ANES) 2-15 Drug form: l 20:29: INJ, ONCE, Stop date: 11/13/17 14:29:00 ETHANOL MAINTENANCE MECHANIC propofol 2018-0 No Route: IV, Mem oria (ANES) 2-15 Drug form: l 20:29: INJ, ONCE, Stop date: 11/13/17 14:29:00 ETHANOL MAINTENANCE MECHANIC propofol 2018-0 No Route: IV, Mem oria (ANES) 2-15 Drug form: l 20:29: INJ, ONCE, Stop date: 11/13/17 14:29:00 ETHANOL MAINTENANCE MECHANIC propofol 2018-0 No Route: IV, Mem oria (ANES) 2-15 Drug form: l 20:29: INJ, ONCE, Stop date: 11/13/17 14:29:00 ETHANOL MAINTENANCE MECHANIC propofol 2018-0 No Route: IV, Mem oria (ANES) 2-15 Drug form: l 20:29: INJ, ONCE, Stop date: 11/13/17 14:29:00 ETHANOL MAINTENANCE MECHANIC propofol 2018-0 No Route: IV, Mem oria (ANES) 2-15 Drug form: l 20:29: INJ, ONCE, Stop date: 11/13/17 14:29:00 ETHANOL MAINTENANCE MECHANIC lidocaine 2018-0 No Route: IV, Me moria (ANES) 2-15 Drug form: l 20:24: INJ, ONCE, Stop date: 11/13/17 14:24:00 ETHANOL MAINTENANCE MECHANIC fentaNYL 2018-0 No Route: IV, Mem oria (ANES) 2-15 Drug form: l 20:24: INJ, ONCE, Stop date: 11/13/17 14:24:00 ETHANOL MAINTENANCE MECHANIC midazolam 2018-0 No Route: IV, Me moria (ANES) 2-15 Drug form: l 20:24: SOLN, [place] 00 ONCE, Stop date: 11/13/17 14:24:00 ETHANOL MAINTENANCE MECHANIC lidocaine 2018-0 No Route: IV, Me moria (ANES) 2-15 Drug form: l 20:24: INJ, ONCE, [place] 00 Stop date: 11/13/17 14:24:00 ETHANOL MAINTENANCE MECHANIC fentaNYL 2018-0 No Route: IV, Mem oria (ANES) 2-15 Drug form: l 20:24: INJ, ONCE, [place] 00 Stop date: 11/13/17 14:24:00 ETHANOL MAINTENANCE MECHANIC midazolam 2018-0 No Route: IV, Me moria (ANES) 2-15 Drug form: l 20:24: SOLN, [place] 00 ONCE, Stop date: 11/13/17 14:24:00 ETHANOL MAINTENANCE MECHANIC lidocaine 2018-0 No Route: IV, Me moria (ANES) 2-15 Drug form: l 20:24: INJ, ONCE, Momo Stop date: 11/13/17 14:24:00 ETHANOL MAINTENANCE MECHANIC fentaNYL 2018-0 No Route: IV, Mem oria (ANES) 2-15 Drug form: l 20:24: INJ, ONCE, [place] Stop date: 11/13/17 14:24:00 ETHANOL MAINTENANCE MECHANIC midazolam 2018-0 No Route: IV, Me moria (ANES) 2-15 Drug form: l 20:24: SOLN, [place] 00 ONCE, Stop date: 11/13/17 14:24:00 ETHANOL MAINTENANCE MECHANIC lidocaine 2018-0 No Route: IV, Me moria (ANES) 2-15 Drug form: l 20:24: INJ, ONCE, [place] 00 Stop date: 11/13/17 14:24:00 ETHANOL MAINTENANCE MECHANIC fentaNYL 2018-0 No Route: IV, Mem oria (ANES) 2-15 Drug form: l 20:24: INJ, ONCE, [place] 00 Stop date: 11/13/17 14:24:00 ETHANOL MAINTENANCE MECHANIC midazolam 2018-0 No Route: IV, Me moria (ANES) 2-15 Drug form: l 20:24: SOLN, [place] 00 ONCE, Stop date: 11/13/17 14:24:00 ETHANOL MAINTENANCE MECHANIC lidocaine 2018-0 No Route: IV, Me moria (ANES) 2-15 Drug form: l 20:24: INJ, ONCE, [place] 00 Stop date: 11/13/17 14:24:00 ETHANOL MAINTENANCE MECHANIC fentaNYL 2018-0 No Route: IV, Mem oria (ANES) 2-15 Drug form: l 20:24: INJ, ONCE, [place] 00 Stop date: 11/13/17 14:24:00 ETHANOL MAINTENANCE MECHANIC midazolam 2018-0 No Route: IV, Me moria (ANES) 2-15 Drug form: l 20:24: SOLN, [place] 00 ONCE, Stop date: 11/13/17 14:24:00 ETHANOL MAINTENANCE MECHANIC lidocaine 2018-0 No Route: IV, Me moria (ANES) 2-15 Drug form: l 20:24: INJ, ONCE, [place] Stop date: 11/13/17 14:24:00 ETHANOL MAINTENANCE MECHANIC fentaNYL 2018-0 No Route: IV, Mem oria (ANES) 2-15 Drug form: l 20:24: INJ, ONCE, [place] Stop date: 11/13/17 14:24:00 ETHANOL MAINTENANCE MECHANIC midazolam 2018-0 No Route: IV, Me moria (ANES) 2-15 Drug form: l 20:24: SOLN, [place] 00 ONCE, Stop date: 11/13/17 14:24:00 ETHANOL MAINTENANCE MECHANIC phenylephri 2018-0 No Route: IV, Memoria ne (ANES) 2-15 Drug form: l 100 20:07: INJ, Start [place] microgram 00 date: 11/13/17 14:07:00 ETHANOL MAINTENANCE MECHANIC, Stop date: 11/13/17 15:07:00 ETHANOL MAINTENANCE MECHANIC phenylephri 2018-0 No Route: IV, Memoria ne (ANES) 2-15 Drug form: l 100 20:07: INJ, Start Momo microgram 00 date: 11/13/17 14:07:00 ETHANOL MAINTENANCE MECHANIC, Stop date: 11/13/17 15:07:00 ETHANOL MAINTENANCE MECHANIC phenylephri 2018-0 No Route: IV, Memoria ne (ANES) 2-15 Drug form: l 100 20:07: INJ, Start [place] microgram 00 date: 11/13/17 14:07:00 ETHANOL MAINTENANCE MECHANIC, Stop date: 11/13/17 15:07:00 ETHANOL MAINTENANCE MECHANIC phenylephri 2018-0 No Route: IV, Memoria ne (ANES) 2-15 Drug form: l 100 20:07: INJ, Start [place] microgram 00 date: 11/13/17 14:07:00 ETHANOL MAINTENANCE MECHANIC, Stop date: 11/13/17 15:07:00 ETHANOL MAINTENANCE MECHANIC phenylephri 2018-0 No Route: IV, Memoria ne (ANES) 2-15 Drug form: l 100 20:07: INJ, Start [place] microgram 00 date: 11/13/17 14:07:00 ETHANOL MAINTENANCE MECHANIC, Stop date: 11/13/17 15:07:00 ETHANOL MAINTENANCE MECHANIC phenylephri 2018-0 No Route: IV, Memoria ne (ANES) 2-15 Drug form: l 100 20:07: INJ, Start [place] microgram date: 11/13/17 14:07:00 ETHANOL MAINTENANCE MECHANIC, Stop date: 11/13/17 15:07:00 ETHANOL MAINTENANCE MECHANIC Cefazolin 2018-0 No Notes: Memori a 2-15 (Same As: l 20:00: Ancef, [place] 00 Kefzol) MEDICATION WASTE Product Size: 1000 mg Product Wasted: ___ mg vancomycin 2017-0 No Route: IV, M emoria (ANES) 11-13 Drug form: l mg 20:00: INJ, Start [place] date: 11/13/17 14:00:00 ETHANOL MAINTENANCE MECHANIC, Stop date: 11/13/17 15:00:00 ETHANOL MAINTENANCE MECHANIC Cefazolin 2018-0 No Notes: Memori a 2-15 (Same As: l 20:00: Ancef, [place] 00 Kefzol) MEDICATION WASTE Product Size: 1000 mg Product Wasted: ___ mg vancomycin 2017-0 No Route: IV, M emoria (ANES) 11-13 Drug form: l mg 20:00: INJ, Start [place] date: 11/13/17 14:00:00 ETHANOL MAINTENANCE MECHANIC, Stop date: 11/13/17 15:00:00 ETHANOL MAINTENANCE MECHANIC Cefazolin 2018-0 No Notes: Memori a 2-15 (Same As: l 20:00: Ancef, [place] 00 Kefzol) MEDICATION WASTE Product Size: 1000 mg Product Wasted: ___ mg vancomycin 2018-0 No Route: IV, M emoria (ANES) 11-13 Drug form: l mg 20:00: INJ, Start [place] date: 11/13/17 14:00:00 ETHANOL MAINTENANCE MECHANIC, Stop date: 11/13/17 15:00:00 ETHANOL MAINTENANCE MECHANIC Cefazolin 2018-0 No Notes: Memori a 2-15 (Same As: l 20:00: Ancef, [place] Kefzol) MEDICATION WASTE Product Size: 1000 mg Product Wasted: ___ mg vancomycin No Route: IV, M emoria (ANES) 11-13 Drug form: l mg 20:00: INJ, Start date: 11/13/17 14:00:00 ETHANOL MAINTENANCE MECHANIC, Stop date: 11/13/17 15:00:00 ETHANOL MAINTENANCE MECHANIC Cefazolin 2018-0 No Notes: Memori a 2-15 (Same As: l 20:00: Ancef, [place] Kefzol) MEDICATION WASTE Product Size: 1000 mg Product Wasted: ___ mg vancomycin No Route: IV, M emoria (ANES) 11-13 Drug form: l mg 20:00: INJ, Start date: 11/13/17 14:00:00 ETHANOL MAINTENANCE MECHANIC, Stop date: 11/13/17 15:00:00 ETHANOL MAINTENANCE MECHANIC Cefazolin 2017-0 No Notes: Memori a 2-15 (Same As: l 20:00: Ancef, [place] Kefzol) MEDICATION WASTE Product Size: 1000 mg Product Wasted: ___ mg vancomycin No Route: IV, M emoria (ANES) 11-13 Drug form: l mg 20:00: INJ, Start date: 11/13/17 14:00:00 ETHANOL MAINTENANCE MECHANIC, Stop date: 11/13/17 15:00:00 ETHANOL MAINTENANCE MECHANIC Restoril 0 No Notes: Memoria 2-15 (Same As: l 19:59: Restoril) [place] 00 Restoril 0 No Notes: Memoria 2-15 (Same As: l 19:59: Restoril) [place] 00 Restoril 0 No Notes: Memoria 2-15 (Same As: l 19:59: Restoril) [place] 00 Restoril 0 No Notes: Memoria 2-15 (Same As: l 19:59: Restoril) [place] 00 Restoril 2018-0 No Notes: Memoria 2-15 (Same As: l 19:59: Restoril) Momo Restoril 2017-0 No Notes: Memoria 2-15 (Same As: l 19:59: Restoril) [place] Sodium 0 No Route: IV, Memor ia Chloride 2-15 Total l 0.9% IV 19:54: Volume: [place] (ANES) 500 00 500, Start mL date: 11/13/17 13:54:00 ETHANOL MAINTENANCE MECHANIC, Stop date: 11/13/17 14:54:00 ETHANOL MAINTENANCE MECHANIC Sodium No Route: IV, Memor ia Chloride 2-15 Total l 0.9% IV 19:54: Volume: [place] (ANES) 500 00 500, Start mL date: 11/13/17 13:54:00 ETHANOL MAINTENANCE MECHANIC, Stop date: 11/13/17 14:54:00 ETHANOL MAINTENANCE MECHANIC Sodium No Route: IV, Memor ia Chloride 2-15 Total l 0.9% IV 19:54: Volume: [place] (ANES) 500 00 500, Start mL date: 11/13/17 13:54:00 ETHANOL MAINTENANCE MECHANIC, Stop date: 11/13/17 14:54:00 ETHANOL MAINTENANCE MECHANIC Sodium No Route: IV, Memor ia Chloride 2-15 Total l 0.9% IV 19:54: Volume: [place] (ANES) 500 00 500, Start mL date: 11/13/17 13:54:00 ETHANOL MAINTENANCE MECHANIC, Stop date: 11/13/17 14:54:00 ETHANOL MAINTENANCE MECHANIC Sodium No Route: IV, Memor ia Chloride 2-15 Total l 0.9% IV 19:54: Volume: [place] (ANES) 500 00 500, Start mL date: 11/13/17 13:54:00 ETHANOL MAINTENANCE MECHANIC, Stop date: 11/13/17 14:54:00 ETHANOL MAINTENANCE MECHANIC Sodium No Route: IV, Memor ia Chloride 2-15 Total l 0.9% IV 19:54: Volume: [place] (ANES) 500 00 500, Start mL date: 11/13/17 13:54:00 ETHANOL MAINTENANCE MECHANIC, Stop date: 11/13/17 14:54:00 ETHANOL MAINTENANCE MECHANIC acetaminoph 0 No Notes: Do M emoria en-codeine 2-15 not exceed l #3 19:23: 4gm/day of [place] 00 acetaminop hen. (Same as: Tylenol with Codeine # 3) Acetaminoph No Notes: Do M emoria en 2-15 not exceed l 19:23: 4 gm/day. Momo (Same as: Tylenol) Morphine No Notes: Memoria 2-15 (Same l 19:23: as:MORPhin [place] 00 e Sulfate) Acetaminoph No Notes: Do M emoria en 325 MG / 2-15 not exceed l Hydrocodone 19:23: 4gm/day of [place] Bitartrate 00 acetaminop 10 MG Oral hen. (Same Tablet as: [place] 325/10) Acetaminoph No Notes: Tico jessi en 325 MG / 2-15 (Same as: l Hydrocodone 19:23: [place] Joanna nn Bitartrate 00 325/5) Do 5 MG Oral not exceed Tablet 4gm/day of acetaminop hen. NS 0.45% IV No 1,000 mL, M emoria 1,000 mL 2-15 Rate: 50 l 19:23: ml/hr, Infuse over: 20 hr, Route: IV, Dosing Weight 100.057 kg, Total Volume: 1,000, Start date: 11/13/17 13:23:00 ETHANOL MAINTENANCE MECHANIC, Duration: 30 day, Stop date: 12/13/17 13:22:00 CDT, 2.2, m2 Zofran No Notes: Memoria 2-15 (Same as: l 19:23: Zofran) MEDICATION WASTE Product Size: 4 mg Product Wasted: ___ mg acetaminoph No Notes: Do M emoria en-codeine 2-15 not exceed l #3 19:23: 4gm/day of [place] 00 acetaminop hen. (Same as: Tylenol with Codeine # 3) Acetaminoph No Notes: Do M emoria en 2-15 not exceed l 19:23: 4 gm/day. [place] 00 (Same as: Tylenol) Morphine No Notes: Memoria 2-15 (Same l 19:23: as:MORPhin [place] 00 e Sulfate) Acetaminoph No Notes: Do M emoria en 325 MG / 2-15 not exceed l Hydrocodone 19:23: 4gm/day of [place] Bitartrate 00 acetaminop 10 MG Oral hen. (Same Tablet as: [place] 325/10) Acetaminoph No Notes: Tico jessi en 325 MG / 2-15 (Same as: l Hydrocodone 19:23: [place] Joanna nn Bitartrate 00 325/5) Do 5 MG Oral not exceed Tablet 4gm/day of acetaminop hen. NS 0.45% IV No 1,000 mL, M emoria 1,000 mL 2-15 Rate: 50 l 19:23: ml/hr, [place] 00 Infuse over: 20 hr, Route: IV, Dosing Weight 100.057 kg, Total Volume: 1,000, Start date: 11/13/17 13:23:00 ETHANOL MAINTENANCE MECHANIC, Duration: 30 day, Stop date: 12/13/17 13:22:00 CDT, 2.2, m2 Zofran No Notes: Memoria 2-15 (Same as: l 19:23: Zofran) [place] 00 MEDICATION WASTE Product Size: 4 mg [...] Notes: Memoria 2-15 (Same l 19:23: as:MORPhin [place] 00 e Sulfate) Acetaminoph No Notes: Do M emoria en 325 MG / 2-15 not exceed l Hydrocodone 19:23: 4gm/day of [place] Bitartrate 00 acetaminop 10 MG Oral hen. (Same Tablet as: [place] 325/10) Acetaminoph No Notes: Tico jessi en 325 MG / 2-15 (Same as: l Hydrocodone 19:23: [place] Joanna nn Bitartrate 00 325/5) Do 5 MG Oral not exceed Tablet 4gm/day of acetaminop hen. NS 0.45% IV No 1,000 mL, M emoria 1,000 mL 2-15 Rate: 50 l 19:23: ml/hr, [place] 00 Infuse over: 20 hr, Route: IV, Dosing Weight 100.057 kg, Total Volume: 1,000, Start date: 11/13/17 13:23:00 ETHANOL MAINTENANCE MECHANIC, Duration: 30 day, Stop date: 12/13/17 13:22:00 CDT, 2.2, m2 Zofran No Notes: Memoria 2-15 (Same as: l 19:23: Zofran) [place] 00 MEDICATION WASTE Product Size: 4 mg [...] Notes: Memoria 2-15 (Same l 19:23: as:MORPhin [place] 00 e Sulfate) Acetaminoph No Notes: Do M emoria en 325 MG / 2-15 not exceed l Hydrocodone 19:23: 4gm/day of [place] Bitartrate 00 acetaminop 10 MG Oral hen. (Same Tablet as: [place] 325/10) Acetaminoph No Notes: Tico jessi en 325 MG / 2-15 (Same as: l Hydrocodone 19:23: [place] Joanna nn Bitartrate 00 325/5) Do 5 MG Oral not exceed Tablet 4gm/day of acetaminop hen. 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 (Same as: Tylenol with Codeine # 3) Acetaminoph No Notes: Do M emoria en 2-15 not exceed l 19:23: 4 gm/day. [place] 00 (Same as: Tylenol) Morphine No Notes: Memoria 2-15 (Same l 19:23: as:MORPhin [place] 00 e Sulfate) Acetaminoph No Notes: Do M emoria en 325 MG / 2-15 not exceed l Hydrocodone 19:23: 4gm/day of [place] Bitartrate 00 acetaminop 10 MG Oral hen. (Same Tablet as: [place] 325/10) Acetaminoph No Notes: Tico jessi en 325 MG / 2-15 (Same as: l Hydrocodone 19:23: [place] Joanna nn Bitartrate 00 325/5) Do 5 MG Oral not exceed Tablet 4gm/day of acetaminop hen. 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 (Same as: Tylenol with Codeine # 3) Acetaminoph No Notes: Do M emoria en 2-15 not exceed l 19:23: 4 gm/day. [place] 00 (Same as: Tylenol) Morphine No Notes: Memoria 2-15 (Same l 19:23: as:MORPhin [place] 00 e Sulfate) Acetaminoph No Notes: Do M emoria en 325 MG / 2-15 not exceed l Hydrocodone 19:23: 4gm/day of [place] Bitartrate 00 acetaminop 10 MG Oral hen. (Same Tablet as: [place] 325/10) Acetaminoph No Notes: Tico jessi en 325 MG / 2-15 (Same as: l Hydrocodone 19:23: [place] Joanna nn Bitartrate 00 325/5) Do 5 MG Oral not exceed Tablet 4gm/day of acetaminop hen. 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 Vitamin No Notes: Memoria B-100 06-27 (Same l 14:00: as:Thera) [place] 00 WASTE: F/P - Black; E - Municipal Trash Bin Take with food. Vitamin No Notes: Memoria B-100 06-27 (Same l 14:00: as:Thera) [place] 00 WASTE: F/P - Black; E - Municipal Trash Bin Take with food. Vitamin No Notes: Memoria B-100 06-27 (Same l 14:00: as:Thera) [place] 00 WASTE: F/P - Black; E - Municipal Trash Bin Take with food. Renvela No Notes: Memoria 9 Same as: l 18:00: Renvela [place] 00 Renvela No Notes: Memoria 9 Same as: l 18:00: Renvela [place] 00 Renvela No Notes: Memoria 9 Same as: l 18:00: Renvela [place] 00 Renvela No Notes: Memoria 9 Same as: l 18:00: Renvela [place] 00 Renvela No Notes: Memoria 06-26 Same as: l 18:00: Renvela Renvela 2017-0 No Notes: Memoria 06-26 Same as: l 18:00: Renvela Ofirmev 2017-0 No 1,000 mg, Memor ia 06-26 Route: IV, l 17:24: ONCE, Dosing Weight 100, kg, Start date: 06/26/17 12:24:00 CDT, Stop date: 06/26/17 12:24:00 CDT Ofirmev 2017-0 No 1,000 mg, Memor ia 06-26 Route: IV, l 17:24: ONCE, Dosing Weight 100, kg, Start date: 06/26/17 12:24:00 CDT, Stop date: 06/26/17 12:24:00 CDT Ofirmev 2017-0 No 1,000 mg, Memor ia 06-26 Route: IV, l 17:24: ONCE, Dosing Weight 100, kg, Start date: 06/26/17 12:24:00 CDT, Stop date: 06/26/17 12:24:00 CDT Ofirmev 2017-0 No 1,000 mg, Memor ia 06-26 Route: IV, l 17:24: ONCE, Dosing Weight 100, kg, Start date: 06/26/17 12:24:00 CDT, Stop date: 06/26/17 12:24:00 CDT Ofirmev 2017-0 No 1,000 mg, Memor ia 06-26 Route: IV, l 17:24: ONCE, Dosing Weight 100, kg, Start date: 06/26/17 12:24:00 CDT, Stop date: 06/26/17 12:24:00 CDT Ofirmev 2017-0 No 1,000 mg, Memor ia 06-26 Route: IV, l 17:24: ONCE, Dosing Weight 100, kg, Start date: 06/26/17 12:24:00 CDT, Stop date: 06/26/17 12:24:00 CDT protamine 2016-0 No Route: IV, Me [...] ONCE Tico jessi (ANES) 06-26 l 16:53: [place] 00 neostigmine No Route: IV, Memoria (ANES) 06-26 [...] ONCE Tico jessi (ANES) 06-26 l 16:53: [place] 00 neostigmine No Route: IV, Memoria (ANES) 06-26 Drug form: l 16:53: INJ, ONCE, Stop date: 06/26/17 11:53:00 CDT glycopyrrol 2017-0 No Route: IV, Memoria ate (ANES) 06-26 Drug form: l 16:53: INJ, ONCE, Stop date: 06/26/17 11:53:00 CDT heparin No Route: IV, Tico jessi (ANES) 06-26 Drug form: l 16:37: INJ, ONCE, Stop date: 06/26/17 11:37:00 CDT heparin No Route: IV, Tico jessi (ANES) 06-26 Drug form: l 16:37: INJ, ONCE, Stop date: 06/26/17 11:37:00 CDT heparin No Route: IV, Tico jessi (ANES) 06-26 Drug form: l 16:37: INJ, ONCE, Stop date: 06/26/17 11:37:00 CDT heparin No Route: IV, Tico jessi (ANES) 06-26 Drug form: l 16:37: INJ, ONCE, Stop date: 06/26/17 11:37:00 CDT heparin No Route: IV, Tico jessi (ANES) 06-26 Drug form: l 16:37: INJ, ONCE, Stop date: 06/26/17 11:37:00 CDT heparin No Route: IV, T[place] jessi (ANES) 06-26 Drug form: l 16:37: INJ, ONCE, Stop date: 06/26/17 11:37:00 CDT fentaNYL No Route: IV, Mem oria (ANES) 06-26 Drug form: l 16:17: INJ, ONCE, Stop date: 06/26/17 11:17:00 CDT midazolam 0 No Route: IV, Me moria (ANES) 06-26 Drug form: l 16:17: SOLN, [place] 00 ONCE, Stop date: 06/26/17 11:17:00 CDT [...] (ANES) 06-26 Drug form: l 16:17: SOLN, [place] 00 ONCE, Stop date: 06/26/17 11:17:00 CDT [...] Momo 00 Stop date: 06/26/17 11:12:00 CDT phenylephri No Route: IV, Memoria ne (ANES) 06-26 Drug form: l 16:12: INJ, ONCE, Stop date: 06/26/17 11:12:00 CDT ePHEDrine 0 No Route: IV, Me moria (ANES) 06-26 Drug form: l 16:12: INJ, ONCE, Stop date: 06/26/17 11:12:00 CDT phenylephri No Route: IV, Memoria ne (ANES) 06-26 Drug form: l 16:12: INJ, ONCE, Stop date: 06/26/17 11:12:00 CDT ePHEDrine No Route: IV, Me moria (ANES) 06-26 Drug form: l 16:12: INJ, ONCE, Stop date: 06/26/17 11:12:00 CDT phenylephri 0 No Route: IV, Memoria ne (ANES) 06-26 Drug form: l 16:12: INJ, ONCE, Stop date: 06/26/17 11:12:00 CDT ePHEDrine 0 No Route: IV, Me moria (ANES) 06-26 Drug form: l 16:12: INJ, ONCE, Stop date: 06/26/17 11:12:00 CDT phenylephri 0 No Route: IV, Memoria ne (ANES) 06-26 Drug form: l 16:12: INJ, ONCE, Stop date: 06/26/17 11:12:00 CDT ePHEDrine No Route: IV, Me moria (ANES) 06-26 Drug form: l 16:12: INJ, ONCE, Stop date: 06/26/17 11:12:00 CDT phenylephri 0 No Route: IV, Memoria ne (ANES) 06-26 Drug form: l 16:12: INJ, ONCE, Stop date: 06/26/17 11:12:00 CDT ePHEDrine 0 No Route: IV, Me moria (ANES) 06-26 Drug form: l 16:12: INJ, ONCE, Stop date: 06/26/17 11:12:00 CDT phenylephri 2017-0 No Route: IV, Memoria ne (ANES) 06-26 Drug form: l 16:12: INJ, ONCE, Stop date: 06/26/17 11:12:00 CDT propofol 2016-0 No Route: IV, Mem oria (ANES) 06-26 Drug form: l 15:57: INJ, ONCE, Stop date: 06/26/17 10:57:00 CDT rocuronium 2017-0 No Route: IV, M emoria (ANES) 06-26 [...] ONCE, Stop date: 06/26/17 10:57:00 CDT rocuronium 2017-0 No Route: IV, M emoria (ANES) 06-26 Drug form: l 15:57: INJ, ONCE, Momo Stop date: 06/26/17 10:57:00 CDT propofol No Route: IV, Mem oria (ANES) 06-26 Drug form: l 15:57: INJ, ONCE, [place] 00 Stop date: 06/26/17 10:57:00 CDT rocuronium No Route: IV, M emoria (ANES) 06-26 Drug form: l 15:57: INJ, ONCE, [place] 00 Stop date: 06/26/17 10:57:00 CDT sodium [...] not exceed l Hydrocodone 15:42: 4gm/day of [place] Bitartrate 00 acetaminop 10 MG Oral hen. (Same Tablet as: [place] 325/10) Acetaminoph No Notes: Tico jessi en 325 MG / 06-26 (Same as: l Hydrocodone 15:42: [place] Joanna nn Bitartrate 00 325/5) Do 5 [...] Memoria 06-26 (Same as: l 15:42: Zofran) [place] 00 MEDICATION WASTE Product Size: 4 mg Product Wasted: ___ mg Acetaminoph No Notes: Do M emoria en 06-26 not exceed l 15:42: 4 gm/day. Momo 00 (Same as: Tylenol) Morphine No Notes: Memoria 06-26 (Same l 15:42: as:MORPhin [place] 00 e Sulfate) Acetaminoph No Notes: Do M emoria en 325 MG / 06-26 not exceed l Hydrocodone 15:42: 4gm/day of [place] Bitartrate 00 acetaminop 10 MG Oral hen. (Same Tablet as: [place] 325/10) Acetaminoph No Notes: Tico jessi en 325 MG / 06-26 (Same as: l Hydrocodone 15:42: [place] Joanna nn Bitartrate 00 325/5) Do 5 [...] Memoria 06-26 (Same as: l 15:42: Zofran) [place] 00 MEDICATION WASTE Product Size: 4 mg Product Wasted: ___ mg Acetaminoph No Notes: Do M emoria en 06-26 not exceed l 15:42: 4 gm/day. [place] 00 (Same as: Tylenol) Morphine No Notes: Memoria 06-26 (Same l 15:42: as:MORPhin [place] 00 e Sulfate) Acetaminoph No Notes: Do M emoria en 325 MG / 06-26 not exceed l Hydrocodone 15:42: 4gm/day of [place] Bitartrate 00 acetaminop 10 MG Oral hen. (Same Tablet as: [place] 325/10) Acetaminoph No Notes: Tico jessi en 325 MG / 06-26 (Same as: l Hydrocodone 15:42: [place] Joanna nn Bitartrate 00 325/5) Do 5 [...] Memoria 06-26 (Same as: l 15:42: Zofran) [place] 00 MEDICATION WASTE Product Size: 4 mg Product Wasted: ___ mg Acetaminoph No Notes: Do M emoria en 06-26 not exceed l 15:42: 4 gm/day. [place] 00 (Same as: Tylenol) Morphine No Notes: Memoria 06-26 (Same l 15:42: as:MORPhin [place] 00 e Sulfate) Acetaminoph No Notes: Do M emoria en 325 MG / 06-26 not exceed l Hydrocodone 15:42: 4gm/day of [place] Bitartrate 00 acetaminop 10 MG Oral hen. (Same Tablet as: [place] 325/10) Acetaminoph No Notes: Tico jessi en 325 MG / 06-26 (Same as: l Hydrocodone 15:42: [place] Joanna nn Bitartrate 00 325/5) Do 5 [...] Notes: Memoria 06-26 (Same l 15:42: as:MORPhin [place] 00 e Sulfate) Acetaminoph No Notes: Do M emoria en 325 MG / 06-26 not exceed l Hydrocodone 15:42: 4gm/day of [place] Bitartrate 00 acetaminop 10 MG Oral hen. (Same Tablet as: [place] 325/10) Acetaminoph No Notes: Tico jessi en 325 MG / 06-26 (Same as: l Hydrocodone 15:42: [place] Joanna nn Bitartrate 00 325/5) Do 5 [...] Memoria 06-26 (Same as: l 15:42: Zofran) [place] 00 MEDICATION WASTE Product Size: 4 mg Product Wasted: ___ mg Acetaminoph No Notes: Do M emoria en 06-26 not exceed l 15:42: 4 gm/day. Momo 00 (Same as: Tylenol) Morphine No Notes: Memoria 06-26 (Same l 15:42: as:MORPhin [place] 00 e Sulfate) Acetaminoph No Notes: Do M emoria en 325 MG / 06-26 not exceed l Hydrocodone 15:42: 4gm/day of [place] Bitartrate 00 acetaminop 10 MG Oral hen. (Same Tablet as: [place] 325/10) Acetaminoph No Notes: Tico jessi en 325 MG / 06-26 (Same as: l Hydrocodone 15:42: [place] Joanna nn Bitartrate 00 325/5) Do 5 [...] CDT, Stop date: 06/26/17 11:22:00 CDT Cefazolin 2016- No Notes: Memori a 06-26 Same as: l 13:00: Ancef [place] 00 Cefazolin 2016-0 No Notes: Memori a 06-26 Same as: l 13:00: Ancef [place] 00 Cefazolin 2016-0 No Notes: Memori a 06-26 Same as: l 13:00: Ancef [place] 00 Cefazolin 2016-0 No Notes: Memori a 06-26 Same as: l 13:00: Ancef [place] 00 Cefazolin 2016-0 No Notes: Memori a 06-26 Same as: l 13:00: Ancef [place] 00 Cefazolin 2016-0 No Notes: Memori a 06-26 Same as: l 13:00: Ancef [place] 00 Hydralazine 2016-0 Yes Notes: Tico jessi 06-26 (Same as: l 12:58: Apresoline [place] 00 ) Push over 5 minutes Hydralazine 2017-0 Yes Notes: Tico jessi 06-26 (Same as: l 12:58: Apresoline [place] 00 ) Push over 5 minutes Hydralazine 0 Yes Notes: Tico jessi 06-26 (Same as: l 12:58: Apresoline [place] 00 ) Push over 5 minutes Hydralazine 2016-0 Yes Notes: Tico jessi 06-26 (Same as: l 12:58: Apresoline [place] 00 ) Push over 5 minutes Hydralazine 2017-0 Yes Notes: Tico jessi 06-26 (Same as: l 12:58: Apresoline [place] 00 ) Push over 5 minutes Hydralazine 2016-0 Yes Notes: Tico jessi 06-26 (Same as: l 12:58: Apresoline [place] 00 ) Push over 5 minutes Ondansetron No Notes: Tico jessi 06-26 (Same as: l 12:42: Zofran) [place] 00 MEDICATION WASTE Product Size: 4 mg Product Wasted: ___ mg Flumazenil No Notes: Memor ia 06-26 (Same as: l 12:42: Romazicon) [place] 00 Naloxone No Notes: Memoria 06-26 Same as [...] ia 06-26 (Same as: l 12:42: Romazicon) [place] 00 Naloxone No Notes: Memoria 06-26 Same as l 12:42: Narcan Fentanyl No Notes: Memoria 06-26 (Same as: l 12:42: Sublimaze) [place] 00 Preservati ve free. Hydromorpho No Notes: Tico jessi ne 06-26 (Same as: l 12:42: Dilaudid) Metoprolol No Notes: Memor ia 06-26 (Same as: l 12:42: Lopressor) [place]o 00 Push over 2 minutes Hydralazine No Notes: Tico jessi -28 (Same as: l 12:42: Apresoline ) Push [...] 2 minutes Hydralazine No Notes: Tico jessi - (Same as: l 12:42: Apresoline ) Push over 5 minutes sodium No 1,000 mL, Memori a chloride 06-26 Rate: 125 l 0.9% 1000 12:42: ml/hr, Luisito n ml INJ 00 Infuse 1,000 mL over: 8 hr, Route: IV, Dosing Weight 100 kg, Total Volume: 1,000, Start date: 06/26/17 7:42:00 CDT, Duration: 30 day, Stop date: 07/26/17 7:41:00 CDT Ondansetron No Notes: Tico jessi 9-28 (Same as: l 12:42: Zofran) [place] 00 MEDICATION WASTE Product Size: 4 mg [...] 06-26 (Same as: l 12:42: Lopressor) Momo 00 Push over 2 minutes Hydralazine No [...] PO, l mg oral 12:39: Q12H, 0 [place] tablet 00 Refill(s) metoprolol Yes 50 mg [...] PO, l mg oral 12:39: Q12H, 0 [place] tablet 00 Refill(s) Restoril No Notes: Memoria 9- (Same As: l 12:38: Restoril) Restoril No Notes: Memoria 9-28 (Same As: l 12:38: Restoril) [place] 00 Restoril No Notes: Memoria 9-28 (Same As: l 12:38: Restoril) Momo Restoril No Notes: Memoria 9-28 (Same As: l 12:38: Restoril) Momo Restoril No Notes: Memoria 9-28 (Same As: l 12:38: Restoril) [place] 00 Restoril No Notes: Memoria 9-28 (Same As: l 12:38: Restoril) [place] 00 Vitamin Yes 1 tab, PO, [...] 05-15 Route: PO, l 19:14: Drug form: [place] 00 SUSP, ONCE, Dosing Weight 101, kg, Start date: 05/15/17 14:14:00 CDT, Stop date: 05/15/17 14:14:00 CDT Kayexalate 0 No 30 gm, Memor ia 05-15 Route: PO, l 19:14: Drug form: [place] 00 SUSP, ONCE, Dosing Weight 101, kg, Start date: 05/15/17 14:14:00 CDT, Stop date: 05/15/17 14:14:00 CDT Kayexalate 0 No 30 gm, Memor ia 05-15 Route: PO, l 19:14: Drug form: [place] 00 SUSP, ONCE, Dosing Weight 101, kg, Start date: 05/15/17 14:14:00 CDT, Stop date: 05/15/17 14:14:00 CDT Kayexalate 0 No 30 gm, Memor ia 05-15 Route: PO, l 19:14: Drug form: [place] 00 SUSP, ONCE, Dosing Weight 101, kg, Start date: 05/15/17 14:14:00 CDT, Stop date: 05/15/17 14:14:00 CDT Kayexalate 0 No 30 gm, Memor ia 05-15 Route: PO, l 19:14: Drug form: [place] 00 SUSP, ONCE, Dosing Weight 101, kg, [...] l 18:13: Narcan Fentanyl No Notes: Memoria 8-17 (Same as: l 18:13: Sublimaze) [place] Preservati ve free. Ondansetron No Notes: Tico jessi 8-17 (Same as: l 18:13: Zofran) Momo MEDICATION WASTE Product Size: 4 mg Product Wasted: ___ mg Acetaminoph No Notes: Tico jessi en 8-17 Infuse l 18:13: over 15 [place] 00 minutes Do not exceed 4gm/day of acetaminop hen MEDICATION WASTE Product Size: 1000 mg Product Wasted: ___ mg Flumazenil No Notes: Memor ia 8-17 (Same as: l 18:13: Romazicon) Momo Naloxone No Notes: Memoria 8-17 Same as l 18:13: Narcan [place] Fentanyl No Notes: Memoria 8-17 (Same as: l 18:13: Sublimaze) [place] Preservati ve free. Ondansetron No Notes: Tico jessi 8-17 (Same as: l 18:13: Zofran) [place] 00 MEDICATION WASTE Product Size: 4 mg Product Wasted: ___ mg Acetaminoph No Notes: Tico jessi en 8-17 Infuse l 18:13: over 15 [place] 00 minutes Do not exceed 4gm/day of acetaminop hen MEDICATION WASTE Product Size: 1000 mg Product Wasted: ___ mg Flumazenil No Notes: Memor ia 8-17 (Same as: l 18:13: Romazicon) Momo Naloxone No Notes: Memoria 8-17 Same as l 18:13: Narcan [place] Fentanyl No Notes: Memoria 8-17 (Same as: l 18:13: Sublimaze) [place] Preservati ve free. Ondansetron No Notes: Tico jessi 8-17 (Same as: l 18:13: Zofran) [place] 00 MEDICATION WASTE Product Size: 4 mg Product Wasted: ___ mg Acetaminoph No Notes: Tico jessi en 05-15 Infuse l 18:13: over 15 [place] 00 minutes Do not exceed 4gm/day of acetaminop hen MEDICATION WASTE Product Size: 1000 mg Product Wasted: ___ mg Flumazenil No Notes: Memor ia 05-15 (Same as: l 18:13: Romazicon) [place] Naloxone No Notes: Memoria 05-15 Same as l 18:13: Narcan [place] Fentanyl No Notes: Memoria 05-15 (Same as: l 18:13: Sublimaze) Momo Preservati ve free. Ondansetron No Notes: Tico jessi 05-15 (Same as: l 18:13: Zofran) [place] 00 MEDICATION WASTE Product Size: 4 mg Product Wasted: ___ mg Acetaminoph No Notes: Tico jessi en 05-15 Infuse l 18:13: over 15 [place] 00 minutes Do not exceed 4gm/day of acetaminop hen MEDICATION WASTE Product Size: 1000 mg Product Wasted: ___ mg Flumazenil No Notes: Memor ia 05-15 (Same as: l 18:13: Romazicon) Momo Naloxone No Notes: Memoria 05-15 Same as l 18:13: Narcan [place] Fentanyl No Notes: Memoria 05-15 (Same as: l 18:13: Sublimaze) [place] Preservati ve free. Ondansetron No Notes: Tico jessi 05-15 (Same as: l 18:13: Zofran) [place] 00 MEDICATION WASTE Product Size: 4 mg Product Wasted: ___ mg Acetaminoph No Notes: Tico jessi en 05-15 Infuse l 18:13: over 15 [place] 00 minutes Do not exceed 4gm/day of acetaminop hen MEDICATION WASTE Product Size: 1000 mg Product Wasted: ___ mg Flumazenil No Notes: Memor ia 17 (Same as: l 18:13: Romazicon) Momo Naloxone No Notes: Memoria 8-17 Same as l 18:13: Narcan [place] Renvela No Notes: Memoria 8-17 Same as: l 18:00: Renvela [place] Renvela No Notes: Memoria 8-17 Same as: l 18:00: Renvela [place] Renvela No Notes: Memoria 8-17 Same as: l 18:00: Renvela [place] Renvela No Notes: Memoria 8-17 Same as: l 18:00: Renvela [place] Renvela No Notes: Memoria 8-17 Same as: l 18:00: Renvela Momo Renvela No Notes: Memoria 8-17 Same as: l 18:00: Renvela [place] ondansetron No Route: IV, Memoria (ANES) 8 Drug form: l 17:57: INJ, ONCE, Momo Stop date: 05/15/17 12:57:00 CDT propofol 0 No Route: IV, Mem oria (ANES) 05-15 Drug form: l 17:57: INJ, ONCE, Momo 00 Stop date: 05/15/17 12:57:00 CDT ondansetron 0 No Route: IV, Memoria (ANES) 8 Drug form: l 17:57: INJ, ONCE, [place] 00 Stop date: 05/15/17 12:57:00 CDT propofol 0 No Route: IV, Mem oria (ANES) 05-15 Drug form: l 17:57: INJ, ONCE, [place] Stop date: 05/15/17 12:57:00 CDT ondansetron 0 No Route: IV, Memoria (ANES) 8 Drug form: l 17:57: INJ, ONCE, Momo Stop date: 05/15/17 12:57:00 CDT propofol [id number] No Route: IV, Mem oria (ANES) 05-15 Drug form: l 17:57: INJ, ONCE, [place] 00 Stop date: 05/15/17 12:57:00 CDT ondansetron 0 No Route: IV, Memoria (ANES) 05-15 Drug form: l 17:57: INJ, ONCE, Stop date: 05/15/17 12:57:00 CDT propofol 2017-0 No Route: IV, Mem oria (ANES) 05-15 Drug form: l 17:57: INJ, ONCE, Stop date: 05/15/17 12:57:00 CDT ondansetron 2017-0 No Route: IV, Memoria (ANES) 05-15 Drug [...] ONCE, Stop date: 05/15/17 12:51:00 CDT phenylephri 2016-0 No Route: IV, Memoria ne (ANES) 05-15 Drug form: l 17:51: INJ, ONCE, Stop date: 05/15/17 12:51:00 CDT ePHEDrine 0 No Route: IV, Me moria (ANES) 05-15 Drug form: l 17:51: INJ, ONCE, Stop date: 05/15/17 12:51:00 CDT heparin 2017-0 No Route: IV, Tico jessi (ANES) 05-15 Drug form: l 17:46: INJ, ONCE, Stop date: 05/15/17 12:46:00 CDT heparin 2016-0 No Route: IV, Tico jessi (ANES) 05-15 Drug form: l 17:46: INJ, ONCE, Stop date: 05/15/17 12:46:00 CDT heparin No Route: IV, Tico jessi (ANES) 05-15 Drug form: l 17:46: INJ, ONCE, [place] Stop date: 05/15/17 12:46:00 CDT heparin No Route: IV, Tico jessi (ANES) 05-15 Drug form: l 17:46: INJ, ONCE, [place] Stop date: 05/15/17 12:46:00 CDT heparin No Route: IV, Tico jessi (ANES) 05-15 Drug form: l 17:46: INJ, ONCE, [place] Stop date: 05/15/17 12:46:00 CDT heparin No Route: IV, Tico jessi (ANES) 05-15 Drug form: l 17:46: INJ, ONCE, [place] Stop date: 05/15/17 12:46:00 CDT Zofran No [...] / 05-15 (Same as: l Hydrocodone 17:43: [place] Joanna nn Bitartrate 00 325/5) Do 5 MG Oral not exceed Tablet 4gm/day of acetaminop hen. Acetaminoph No Notes: Do M emoria en 325 MG / 05-15 not exceed l Hydrocodone 17:43: 4gm/day of [place] Bitartrate 00 acetaminop 10 MG Oral hen. (Same Tablet as: [place] 325/10) Acetaminoph No Notes: Do M emoria [...] / 05-15 (Same as: l Hydrocodone 17:43: [place] Joanna nn Bitartrate 00 325/5) Do 5 MG Oral not exceed Tablet 4gm/day of acetaminop hen. Acetaminoph No Notes: Do M emoria en 325 MG / 05-15 not exceed l Hydrocodone 17:43: 4gm/day of [place] Bitartrate 00 acetaminop 10 MG Oral hen. (Same Tablet as: [place] 325/10) Acetaminoph No Notes: Do M emoria [...] Notes: [place] jessi en 325 MG / 8-17 (Same as: l Hydrocodone 17:43: [place] Joanna nn Bitartrate 00 325/5) Do 5 MG Oral not exceed Tablet 4gm/day of acetaminop hen. Acetaminoph No Notes: Do M emoria en 325 MG / 05-15 not exceed l Hydrocodone 17:43: 4gm/day of [place] Bitartrate 00 acetaminop 10 MG Oral hen. (Same Tablet as: [place] 325/10) Acetaminoph No Notes: Do M emoria en 05-15 not exceed l 17:43: 4 gm/day. [place] 00 (Same as: Tylenol) Zofran No Notes: [...] / 05-15 (Same as: l Hydrocodone 17:43: [place] Joanna nn Bitartrate 00 325/5) Do 5 MG Oral not exceed Tablet 4gm/day of acetaminop hen. Acetaminoph No Notes: Do M emoria en 325 MG / 05-15 not exceed l Hydrocodone 17:43: 4gm/day of [place] Bitartrate 00 acetaminop 10 MG Oral hen. (Same Tablet as: [place] 325/10) Acetaminoph No Notes: Do M emoria en 17 not exceed l 17:43: 4 gm/day. [place] 00 (Same as: Tylenol) Zofran No Notes: Memoria 05-15 (Same as: l 17:43: Zofran) [place] 00 MEDICATION WASTE Product Size: 4 mg [...] / 05-15 (Same as: l Hydrocodone 17:43: [place] Joanna nn Bitartrate 00 325/5) Do 5 MG Oral not exceed Tablet 4gm/day of acetaminop hen. Acetaminoph No Notes: Do M emoria en 325 MG / 05-15 not exceed l Hydrocodone 17:43: 4gm/day of [place] Bitartrate 00 acetaminop 10 MG Oral hen. (Same Tablet as: [place] 325/10) Acetaminoph No Notes: Do M emoria en 05-15 not exceed l 17:43: 4 gm/day. [place] 00 (Same as: Tylenol) Zofran No Notes: Memoria 05-15 (Same as: l 17:43: Zofran) [place] 00 MEDICATION WASTE Product Size: 4 mg [...] / 05-15 (Same as: l Hydrocodone 17:43: [place] Joanna nn Bitartrate 00 325/5) Do 5 MG Oral not exceed Tablet 4gm/day of acetaminop hen. Acetaminoph No Notes: Do M emoria en 325 MG / 05-15 not exceed l Hydrocodone 17:43: 4gm/day of [place] Bitartrate 00 acetaminop 10 MG Oral hen. (Same Tablet as: [place] 325/10) Acetaminoph No Notes: Do M emoria [...] protamine No Route: IV, Me moria (ANES) 8- Drug form: l (ANES) 17:37: INJ, Start Joanna date: 05/15/17 12:37:00 CDT, Stop date: 05/15/17 13:37:00 CDT protamine No Route: IV, Me moria (ANES) 8- Drug form: l (ANES) 17:37: INJ, Start Joanna date: 05/15/17 12:37:00 CDT, Stop date: 05/15/17 13:37:00 CDT protamine No Route: IV, Me moria (ANES) 8 Drug form: l (ANES) 17:37: INJ, Start Joanna date: 05/15/17 12:37:00 CDT, Stop date: 05/15/17 13:37:00 CDT protamine No Route: IV, Me moria (ANES) 8- Drug form: l (ANES) 17:37: INJ, Start Joanna date: 05/15/17 12:37:00 CDT, Stop date: 05/15/17 13:37:00 CDT fentaNYL No Route: IV, Mem oria (ANES) 05-15 Drug form: l 17:36: INJ, ONCE, Stop date: 05/15/17 12:36:00 CDT fentaNYL 0 No Route: IV, Mem oria (ANES) 05-15 Drug form: l 17:36: INJ, ONCE, Stop date: 05/15/17 12:36:00 CDT fentaNYL No Route: IV, Mem oria (ANES) 05-15 Drug form: l 17:36: INJ, ONCE, Stop date: 05/15/17 12:36:00 CDT fentaNYL 2017 No Route: IV, Mem oria (ANES) 05-15 Drug form: l 17:36: INJ, ONCE, Stop date: 05/15/17 12:36:00 CDT fentaNYL No Route: IV, Mem oria (ANES) 05-15 Drug form: l 17:36: INJ, ONCE, Stop date: 05/15/17 12:36:00 CDT fentaNYL No Route: IV, Mem oria (ANES) 05-15 Drug form: l 17:36: INJ, ONCE, Stop date: 05/15/17 12:36:00 CDT phenylephri 0 No Route: IV, Memoria ne (ANES) 05-15 Drug form: l (ANES) 17:26: INJ, Start Joanna date: 05/15/17 12:26:00 CDT, Stop date: 05/15/17 13:26:00 CDT ePHEDrine 0 No Route: IV, Me moria (ANES) 05-15 Drug form: l 17:26: INJ, ONCE, Stop date: 05/15/17 12:26:00 CDT phenylephri 0 No Route: IV, Memoria ne (ANES) 05-15 Drug form: l (ANES) 17:26: INJ, Start Joanna date: 05/15/17 12:26:00 CDT, Stop date: 05/15/17 13:26:00 CDT ePHEDrine [id number] No Route: IV, Me moria (ANES) 05-15 Drug form: l 17:26: INJ, ONCE, [place] 00 Stop date: 05/15/17 12:26:00 CDT phenylephri No Route: IV, Memoria ne (ANES) 05-15 Drug form: l (ANES) 17:26: INJ, Start Joanna date: 05/15/17 12:26:00 CDT, Stop date: 05/15/17 13:26:00 CDT ePHEDrine No Route: IV, Me moria (ANES) 05-15 Drug form: l 17:26: INJ, ONCE, [place] 00 Stop date: 05/15/17 12:26:00 CDT phenylephri No [...] 05-15 Drug form: l 17:26: INJ, ONCE, [place] 00 Stop date: 05/15/17 12:26:00 CDT phenylephri No Route: IV, Memoria ne (ANES) 8 Drug form: l (ANES) 17:26: INJ, Start Joanna date: 05/15/17 12:26:00 CDT, Stop date: 05/15/17 13:26:00 CDT ePHEDrine 0 No Route: IV, Me moria (ANES) 05-15 Drug form: l 17:26: INJ, ONCE, Stop date: 05/15/17 12:26:00 CDT phenylephri 2017-0 No Route: IV, Memoria ne (ANES) 05-15 Drug form: l 17:21: INJ, ONCE, Stop date: 05/15/17 12:21:00 CDT phenylephri 2017- No Route: IV, Memoria ne (ANES) 05-15 Drug form: l 17:21: INJ, ONCE, Stop date: 05/15/17 12:21:00 CDT phenylephri 2017 No Route: IV, Memoria ne (ANES) 05-15 Drug form: l 17:21: INJ, ONCE, Stop date: 05/15/17 12:21:00 CDT phenylephri 2017-0 No Route: IV, Memoria ne (ANES) 05-15 Drug form: l 17:21: INJ, ONCE, Stop date: 05/15/17 12:21:00 CDT phenylephri [id number] No Route: IV, Memoria ne (ANES) 05-15 Drug form: l 17:21: INJ, ONCE, Stop date: 05/15/17 12:21:00 CDT phenylephri 2017-0 No Route: IV, Memoria ne (ANES) 05-15 Drug form: l 17:21: INJ, ONCE, Stop date: 05/15/17 12:21:00 CDT fentaNYL 2017-0 [...] 8 Drug form: l 17:16: INJ, ONCE, [place] Stop date: 05/15/17 12:16:00 CDT fentaNYL 2017-0 No Route: IV, Mem oria (ANES) 8 Drug form: l 17:16: INJ, ONCE, [place] 00 Stop date: 05/15/17 12:16:00 CDT midazolam 2017-0 No Route: IV, Me moria (ANES) 8 Drug form: l 17:11: SOLN, [place] ONCE, Stop date: 05/15/17 12:11:00 CDT propofol 2017-0 No Route: IV, Mem oria (ANES) 05-15 Drug form: l 17:11: INJ, ONCE, [place] 00 Stop date: 05/15/17 12:11:00 CDT midazolam 2017-0 No Route: IV, Me moria (ANES) 8 Drug form: l 17:11: SOLN, [place] ONCE, Stop date: 05/15/17 12:11:00 CDT propofol 2017-0 No Route: IV, Mem oria (ANES) 8 Drug form: l 17:11: INJ, ONCE, [place] 00 Stop date: 05/15/17 12:11:00 CDT midazolam 2017-0 No Route: IV, Me moria (ANES) 8 Drug form: l 17:11: SOLN, [place] 00 ONCE, Stop date: 05/15/17 12:11:00 CDT propofol 2017-0 No Route: IV, Mem oria (ANES) 8 Drug form: l 17:11: INJ, ONCE, [place] Stop date: 05/15/17 12:11:00 CDT midazolam 2017-0 No Route: IV, Me moria (ANES) 8 Drug form: l 17:11: SOLN, [place] 00 ONCE, Stop date: 05/15/17 12:11:00 CDT propofol 2017-0 No Route: IV, Mem oria (ANES) 8 Drug form: l 17:11: INJ, ONCE, [place] 00 Stop date: 05/15/17 12:11:00 CDT midazolam No Route: IV, Me moria (ANES) 05-15 Drug form: l 17:11: SOLN, [place] 00 ONCE, Stop date: 05/15/17 12:11:00 CDT propofol No Route: IV, Mem oria (ANES) 05-15 Drug form: l 17:11: INJ, ONCE, [place] Stop date: 05/15/17 12:11:00 CDT midazolam No Route: IV, Me moria (ANES) 05-15 Drug form: l 17:11: SOLN, [place] ONCE, Stop date: 05/15/17 12:11:00 CDT propofol No Route: IV, Mem oria (ANES) 05-15 Drug form: l 17:11: INJ, ONCE, [place] Stop date: 05/15/17 12:11:00 CDT vancomycin No [...] CDT, Stop date: 05/15/17 12:46:00 CDT vancomycin 2017-0 No Route: IV, Jossy emoria (ANES) 8-17 Drug form: l (ANES) 16:46: INJ, Start Joanna date: 05/15/17 11:46:00 CDT, Stop date: 05/15/17 12:46:00 CDT vancomycin 2017-0 No Route: IV, Jossy emoria (ANES) 8-17 Drug form: l (ANES) 16:46: INJ, Start Joanna date: 05/15/17 11:46:00 CDT, Stop date: 05/15/17 12:46:00 CDT sodium 2017-0 No Route: IV, Memor ia chloride 8-17 Total l 0.9% 500 ml 16:39: Volume: Her bertrand INJ (ANES) 00 500, Start date: 05/15/17 11:39:00 CDT, Stop date: 05/15/17 12:39:00 CDT sodium 2017-0 No Route: IV, Memor ia chloride 8-17 Total l 0.9% 500 ml 16:39: Volume: Her b[place] INJ (ANES) 00 500, Start date: 05/15/17 11:39:00 CDT, Stop date: 05/15/17 12:39:00 CDT sodium 2017-0 No Route: IV, Memor ia chloride 8-17 Total l 0.9% 500 ml 16:39: Volume: Her bert[place] INJ (ANES) 00 500, Start date: 05/15/17 11:39:00 CDT, Stop date: 05/15/17 12:39:00 CDT sodium 2017-0 No Route: IV, Memor ia chloride 8-17 Total l 0.9% 500 ml 16:39: Volume: Her bert[place] INJ (ANES) 00 500, Start date: 05/15/17 11:39:00 CDT, Stop date: 05/15/17 12:39:00 CDT sodium 2017-0 No Route: IV, Memor ia chloride 8-17 Total l 0.9% 500 ml 16:39: Volume: Her bert[place] INJ (ANES) 00 500, Start date: 05/15/17 11:39:00 CDT, Stop date: 05/15/17 12:39:00 CDT sodium 2017-0 No Route: IV, Memor ia chloride 8- Total l 0.9% 500 ml 16:39: Volume: Her bert[place] INJ (ANES) 00 500, Start date: 05/15/17 11:39:00 CDT, Stop date: 05/15/17 12:39:00 CDT Restoril No Notes: Memoria 8-17 (Same As: l 13:49: Restoril) [place] Restoril No Notes: Memoria 8-17 (Same As: l 13:49: Restoril) [place] Restoril No Notes: Memoria 8-17 (Same As: l 13:49: Restoril) [place] Restoril No Notes: Memoria 8-17 (Same As: l 13:49: Restoril) [place] Restoril No Notes: Memoria 8-17 (Same As: l 13:49: Restoril) [place] Restoril No Notes: Memoria 8-17 (Same As: l 13:49: Restoril) [place] Cefazolin No Notes: Memori a 8-17 Same as: l 13:00: Ancef [place] Cefazolin No Notes: Memori a 8-17 Same as: l 13:00: Ancef [place] Cefazolin No Notes: Memori a 8-17 Same as: l 13:00: Ancef [place] Cefazolin No Notes: Memori a 8-17 Same as: l 13:00: Ancef [place] Cefazolin No Notes: Memori a 8-17 Same as: l 13:00: Ancef [place] 00 Cefazolin 0 No Notes: Memori a 8-17 Same as: l 13:00: Ancef [place] 00 [...] CDT, Duration: 1 doses or times famotidine 2017-0 No Notes: Memor ia 7-13 (Same as: l 14:00: Pepcid) [place] 00 Can be dilute in 5-10cc NS IVP: Slow IV push over at least 2 minutes. famotidine 2017-0 No Notes: Memor ia 7-13 (Same as: l 14:00: Pepcid) [place] 00 Can be dilute in 5-10cc NS IVP: Slow IV push over at least 2 minutes. famotidine 2017-0 No Notes: Memor ia 7-13 (Same as: l 14:00: Pepcid) [place] 00 Can be dilute in 5-10cc NS IVP: Slow IV push over at least 2 minutes. famotidine No Notes: Memor ia 7-13 (Same as: l 14:00: Pepcid) [place] 00 Can be dilute in 5-10cc NS IVP: Slow IV push over at least 2 minutes. famotidine No Notes: Memor ia 7-13 (Same as: l 14:00: Pepcid) [place] 00 Can be dilute in 5-10cc NS IVP: Slow IV push over at least 2 minutes. famotidine No Notes: Memor ia 7-13 (Same as: l 14:00: Pepcid) [place] 00 Can be dilute in 5-10cc NS IVP: Slow IV push over at least 2 minutes. Streptococc No 0.5 mL, Mem oria us 04-10 Route: IM, l pneumoniae 02:41: ONCNgoc SERRANO elidia serotype 1 27 Start capsular date: antigen 04/09/17 diphtheria 21:41:27 [id number] CDT, Stop protein date: conjugate 05/09/17 vaccine / 21:36:27 Streptococc CDT us pneumoniae serotype 14 capsular antigen diphtheria [id number] protein conjugate vaccine / Streptococc us pneumoniae serotype 18C capsular antigen d Streptococc No 0.5 mL, Mem oria us 04-10 Route: IM, l pneumoniae 02:41: Ngoc GARCIA elidia serotype 1 27 Start capsular date: antigen 04/09/17 diphtheria 21:41:27 [id number] CDT, Stop protein date: conjugate 05/09/17 vaccine / 21:36:27 Streptococc CDT us pneumoniae serotype 14 capsular antigen diphtheria [id number] protein conjugate vaccine / Streptococc us pneumoniae serotype 18C capsular antigen d Streptococc No 0.5 mL, Mem oria us 04-10 Route: IM, l pneumoniae 02:41: ONCNgoc SERRANO elidia serotype 1 27 Start capsular date: antigen 04/09/17 diphtheria 21:41:27 [id number] CDT, Stop protein date: conjugate 05/09/17 vaccine / 21:36:27 Streptococc CDT us pneumoniae serotype 14 capsular antigen diphtheria [id number] protein conjugate vaccine / Streptococc us pneumoniae serotype 18C capsular antigen d Streptococc No 0.5 mL, Mem oria us 04-10 Route: IM, l pneumoniae 02:41: ONCNgoc SERRANO eildia serotype 1 27 Start capsular date: antigen 04/09/17 diphtheria 21:41:27 [id number] CDT, Stop protein date: conjugate 05/09/17 vaccine / 21:36:27 Streptococc CDT us pneumoniae serotype 14 capsular antigen diphtheria [id number] protein conjugate vaccine / Streptococc us pneumoniae serotype 18C capsular antigen d Streptococc No 0.5 mL, Mem oria us 04-10 Route: IM, l pneumoniae 02:41: ONCNgoc SERRANO elidia serotype 1 27 Start capsular date: antigen 04/09/17 diphtheria 21:41:27 [id number] CDT, Stop protein date: conjugate 05/09/17 vaccine / 21:36:27 Streptococc CDT us pneumoniae serotype 14 capsular antigen diphtheria [id number] protein conjugate vaccine / Streptococc us pneumoniae serotype 18C capsular antigen d Streptococc No 0.5 mL, Mem oria us 04-10 Route: IM, l pneumoniae 02:41: ONCNgoc SERRANO elidia serotype 1 27 Start capsular date: antigen 04/09/17 diphtheria 21:41:27 [id number] CDT, Stop protein date: conjugate 05/09/17 vaccine / 21:36:27 Streptococc CDT us pneumoniae serotype 14 capsular antigen diphtheria [id number] protein conjugate vaccine / Streptococc us pneumoniae serotype 18C capsular antigen d heparin No Notes: Mathieu 04-10 porcine l 00:10: heparin [place] heparin No Notes: Joséoria 04-10 porcine l 00:10: heparin [place] heparin No Notes: Memoria 04-10 porcine l 00:10: heparin [place] heparin No Notes: Memoria 04-10 porcine l 00:10: heparin [place] 00 heparin No Notes: Memoria 04-10 porcine l 00:10: heparin [place] heparin No Notes: Memoria 04-10 porcine l 00:10: heparin [place] Famotidine No 20 mg, Memor ia 04-10 Route: l 00:08: IVP, BID, [place] Dosing Weight 108, kg, Priority: STAT, Start date: 04/09/17 19:08:00 CDT, Duration: 30 day, Stop date: 05/09/17 17:00:00 CDT Hydralazine 2017-0 No Notes: Tico jessi 7-13 (Same as: l 00:08: Apresoline [place] ) Push over 5 minutes Famotidine 2017-0 No 20 mg, Memor ia 7-13 Route: l 00:08: IVP, BID, [place] 00 Dosing Weight 108, kg, Priority: STAT, Start date: 04/09/17 19:08:00 CDT, Duration: 30 day, Stop date: 05/09/17 17:00:00 CDT Hydralazine 2017-0 No Notes: T[place] jessi 7-13 (Same as: l 00:08: Apresoline [place] ) Push over 5 minutes Famotidine 2017-0 No 20 mg, Memor ia 7-13 Route: l 00:08: IVP, BID, [place] 00 Dosing Weight 108, kg, Priority: STAT, Start date: 04/09/17 19:08:00 CDT, Duration: 30 day, Stop date: 05/09/17 17:00:00 CDT Hydralazine 2017-0 No Notes: [place] jessi 7-13 (Same as: l 00:08: Apresoline [place] ) Push over 5 minutes Famotidine 2016-0 No 20 mg, Memor ia 7-13 Route: l 00:08: IVP, BID, [place] 00 Dosing Weight 108, kg, Priority: STAT, Start date: 04/09/17 19:08:00 CDT, Duration: 30 day, Stop date: 05/09/17 17:00:00 CDT Hydralazine 2017-0 No Notes: [place] jessi 7-13 (Same as: l 00:08: Apresoline [place] ) Push over 5 minutes Famotidine 2017-0 No 20 mg, Memor ia 7-13 Route: l 00:08: IVP, BID, [place] 00 Dosing Weight 108, kg, Priority: STAT, Start date: 04/09/17 19:08:00 CDT, Duration: 30 day, Stop date: 05/09/17 17:00:00 CDT Hydralazine 2017-0 No Notes: [place] jessi 7-13 (Same as: l 00:08: Apresoline [place] ) Push over 5 minutes Famotidine No 20 mg, Memor ia 04-10 Route: l 00:08: IVP, BID, Dosing Weight 108, kg, Priority: STAT, Start date: 04/09/17 19:08:00 CDT, Duration: 30 day, Stop date: 05/09/17 17:00:00 CDT Hydralazine No Notes: [place] jessi 7- (Same as: l 00:08: Apresoline ) Push over 5 minutes Acetaminoph No Notes: [place] jessi en 325 MG / 04-10 (Same as: l Hydrocodone 00:06: [place] Joanna nn Bitartrate 00 325/5) Do 5 MG Oral not exceed Tablet 4gm/day of acetaminop hen. Docusate No Notes: Memoria 04-10 (Same as: l 00:06: Colace) [place] 00 (Do Not Crush) Ondansetron No Notes: [place] jessi 04-10 (Same as: l 00:06: Zofran) [place] 00 MEDICATION WASTE Product Size: 4 mg Product Wasted: ___ mg Acetaminoph No Notes: Do M emoria en 04-10 not exceed l 00:06: 4 gm/day. [place] (Same as: Tylenol) Acetaminoph No Notes: [place] jessi en 325 MG / 04-10 (Same as: l Hydrocodone 00:06: [place] Joanna nn Bitartrate 00 325/5) Do 5 MG Oral not exceed Tablet 4gm/day of acetaminop hen. Docusate No Notes: Memoria 7 (Same as: l 00:06: Colace) [place] (Do Not Crush) Ondansetron No Notes: T[place] jessi 7-13 (Same as: l 00:06: Zofran) [place] 00 MEDICATION WASTE Product Size: 4 mg Product Wasted: ___ mg Acetaminoph No Notes: Do M emoria en 04-10 not exceed l 00:06: 4 gm/day. [place] 00 (Same as: Tylenol) Acetaminoph No Notes: [place] jessi en 325 MG / 04-10 (Same as: l Hydrocodone 00:06: [place] Joanna nn Bitartrate 00 325/5) Do 5 MG Oral not exceed Tablet 4gm/day of acetaminop hen. Docusate No Notes: Memoria 04-10 (Same as: l 00:06: Colace) [place] 00 (Do Not Crush) Ondansetron No Notes: [place] jessi - (Same as: l 00:06: Zofran) [place] 00 MEDICATION WASTE Product Size: 4 mg Product Wasted: ___ mg Acetaminoph No Notes: Do M emoria en 04-10 not exceed l 00:06: 4 gm/day. [place] 00 (Same as: Tylenol) Acetaminoph No Notes: [place] jessi en 325 MG / 04-10 (Same as: l Hydrocodone 00:06: [place] Joanna nn Bitartrate 00 325/5) Do 5 MG Oral not exceed Tablet 4gm/day of acetaminop hen. Docusate No Notes: Memoria 04-10 (Same as: l 00:06: Colace) [place] 00 (Do Not Crush) Ondansetron No Notes: [place] jessi 04-10 (Same as: l 00:06: Zofran) [place] 00 MEDICATION WASTE Product Size: 4 mg Product Wasted: ___ mg Acetaminoph No Notes: Do M emoria en 04-10 not exceed l 00:06: 4 gm/day. [place] 00 (Same as: Tylenol) Acetaminoph No Notes: [place] jessi en 325 MG / 04-10 (Same as: l Hydrocodone 00:06: [place] Joanna nn Bitartrate 00 325/5) Do 5 MG Oral not exceed Tablet 4gm/day of acetaminop hen. Docusate No Notes: Memoria 7 (Same as: l 00:06: Colace) [place] 00 (Do Not Crush) Ondansetron No Notes: Tico jessi 7-13 (Same as: l 00:06: Zofran) [place] 00 MEDICATION WASTE Product Size: 4 mg Product Wasted: ___ mg Acetaminoph No Notes: Do M emoria en 04-10 not exceed l 00:06: 4 gm/day. (Same as: Tylenol) Acetaminoph No Notes: [place] jessi en 325 MG / 04-10 (Same as: l Hydrocodone 00:06: [place] Joanna nn Bitartrate 00 325/5) Do 5 [...] PO, l 30 MG 20:55: Daily, # [place] Extended 00 30 tab, 1 Release Refill(s) Tablet 24 HR Yes 30 mg = 1 Memoria Nifedipine 6-19 tab, PO, l 30 MG 20:55: Daily, # [place] Extended 00 30 tab, 1 Release Refill(s) Tablet 24 HR Yes 30 mg = 1 Memoria Nifedipine 6-19 tab, PO, l 30 MG 20:55: Daily, # [place] Extended 30 tab, 1 Release Refill(s) Tablet 24 Yes 30 mg = 1 Memoria Nifedipine 6-19 tab, PO, l 30 MG 20:55: Daily, # [place] Extended 30 tab, 1 Release Refill(s) Tablet 24 Yes 30 mg = 1 Memoria Nifedipine 6-19 tab, PO, l 30 MG 20:55: Daily, # [place] Extended 30 tab, 1 Release Refill(s) Tablet 24 HR Yes 30 mg = 1 Memoria Nifedipine 6-19 tab, PO, l 30 MG 20:55: Daily, # [place] Extended 30 tab, 1 Release Refill(s) Tablet 24 HR No 30 mg = 1 Memoria Nifedipine 6-19 tab, PO, l 30 MG 17:05: Daily, # [place] Extended 30 tab, 2 Release Refill(s) Tablet 24 HR No 30 mg = 1 Memoria Nifedipine 6-19 tab, PO, l 30 MG 17:05: Daily, # [place] Extended 30 tab, 2 Release Refill(s) Tablet 24 HR No 30 mg = 1 Memoria Nifedipine 6-19 tab, PO, l 30 MG 17:05: Daily, # [place] Extended 30 tab, 2 Release Refill(s) Tablet 24 HR No 30 mg = 1 Memoria Nifedipine 6-19 tab, PO, l 30 MG 17:05: Daily, # [place] Extended 30 tab, 2 Release Refill(s) Tablet 24 HR No 30 mg = 1 Memoria Nifedipine 6-19 tab, PO, l 30 MG 17:05: Daily, # [place] Extended 30 tab, 2 Release Refill(s) Tablet 24 HR No 30 mg = 1 Memoria Nifedipine 6-19 tab, PO, l 30 MG 17:05: Daily, # [place] Extended 30 tab, 2 Release Refill(s) Tablet Sodium [...] Chloride 6-19 8000 l 0.154 13:48: ml/hr, [place] MEQ/ML 00 Infuse Injectable Over: 15 Solution [...] Chloride 6-19 8000 l 0.154 13:48: ml/hr, [place] MEQ/ML 00 Infuse Injectable Over: 15 Solution minutes, Route: IV, 2,000, Drug form: INJ, PRN, Dosing Weight 107.273 kg, Start date: 03/17/17 8:48:00 CDT, Duration: 24 hr, Stop date: 03/18/17 8:47:00 CDT, For Use by Dialysis nurse ONLY, PRN Dialysis heparin No 1,000 Memoria 6-19 unit, 1 l 13:48: mL, Route: IV [...] elidia tablet 00 tab, 1 Refill(s) metoprolol 2017-0 Yes 50 mg = 1 Me moria tartrate 50 6-16 tab, PO, l mg oral 18:20: Q12H, # 60 Herm elidia tablet 00 tab, 1 Refill(s) metoprolol [id number] Yes 50 mg = 1 Me moria [...] 6-16 unit, 4.1 l 13:47: mL, Route: [place] 00 IV, Drug form: INJ, ONCE, Start date: 03/14/17 8:47:00 CDT, Stop date: 03/14/17 8:47:00 CDT heparin 2017-0 No 4,100 Memoria 6-16 unit, 4.1 l 13:47: mL, Route: [place] 00 IV, Drug form: INJ, ONCE, Start date: 03/14/17 8:47:00 CDT, Stop date: 03/14/17 8:47:00 CDT heparin 2017-0 No 4,100 Memoria 6-16 unit, 4.1 l 13:47: mL, Route: [place] 00 IV, Drug form: INJ, ONCE, Start date: 03/14/17 8:47:00 CDT, Stop date: 03/14/17 8:47:00 CDT heparin 2017-0 No 4,100 Memoria 6-16 unit, 4.1 l 13:47: mL, Route: [place] 00 IV, Drug form: INJ, ONCE, Start [...] 6-14 unit, 10 l 22:55: mL, Route: [place] 00 INJ, Drug form: INJ, PRN, Dosing Weight 107.273, kg, PRN Dialysis, Start date: 03/12/17 17:55:00 CDT, Duration: 30 day, Stop date: 04/11/17 17:54:00 CDT heparin 2017-0 No 10,000 Memoria 6-14 unit, 10 l 22:55: mL, Route: [place] 00 INJ, Drug form: INJ, PRN, Dosing [...] 6-14 unit, 10 l 22:55: mL, Route: [place] 00 INJ, Drug form: INJ, PRN, Dosing Weight 107.273, kg, PRN Dialysis, Start date: 03/12/17 17:55:00 CDT, Duration: 30 day, Stop date: 04/11/17 17:54:00 CDT heparin 2017-0 No 10,000 Memoria 6-14 unit, 10 l 22:55: mL, Route: [place] 00 INJ, Drug form: INJ, PRN, Dosing [...] 6-13 (Same as: l 23:56: Adalat CC, [place] 00 Procardia XL) Give on empty stomach. Take 1 hour before or 2 hours after meal; "Avoid grapefruit and grapefruit juice". Do not crush Nifedical No Notes: Memori a XL 6-13 (Same as: l 23:56: Adalat CC, [place] 00 Procardia XL) Give on empty stomach. [...] Memoria 6-13 Tablet l 12:30: should not [place] 00 be chewed or crushed. (Same as: Protonix) Protonix No Notes: Memoria 6-13 Tablet l 12:30: should not [place] 00 be chewed or crushed. (Same as: Protonix) Protonix No Notes: Memoria 6-13 Tablet l 12:30: should not [place] 00 be chewed or crushed. (Same as: Protonix) Protonix No Notes: Memoria 6-13 Tablet l 12:30: should not [place] 00 be chewed or crushed. (Same as: Protonix) Protonix No Notes: Memoria 6-13 Tablet l 12:30: should not [place] 00 be chewed or crushed. (Same as: Protonix) Protonix No Notes: Memoria 6-13 Tablet l 12:30: should not [place] 00 be chewed or crushed. (Same as: Protonix) Hydralazine No Notes: [place] 6-13 (Same as: l 02:05: Apresoline [place] 00 ) Push over 5 minutes Hydralazine No Notes: [place] 6-13 (Same as: l 02:05: Apresoline [place] 00 ) Push over 5 minutes Hydralazine No Notes: [place] j[place] 6-13 (Same as: l 02:05: Apresoline [place] 00 ) Push over 5 minutes Hydralazine [...] tartrate 6-12 (Same as: l 23:59: Lopressor) [place] metoprolol No Notes: Memor ia tartrate 6-12 (Same as: l 23:59: Lopressor) Momo metoprolol No Notes: Memor ia tartrate 6-12 (Same as: l 23:59: Lopressor) [place] 00 metoprolol No Notes: Memor ia tartrate 6-12 (Same as: l 23:59: Lopressor) [place]o 00 metoprolol No Notes: Memor ia tartrate 6-12 (Same as: l 23:59: Lopressor) [place] 00 Sodium No 1,000 mL, Memori a Chloride -12 Rate: 125 l 0.0769 23:57: ml/hr, [place] MEQ/ML 00 Infuse Injectable over: 8 Solution [...] - (Same as: l / 23:57: Duoneb) [place] Ipratropium 00 [place] 0.167 MG/ML Inhalant Solution [DuoNeb] Saline No Notes: Memoria Flush 0.9% -12 (Same as: l 23:57: BD [place] Posiflush) Acetaminoph No Notes: [place] en 325 MG / 12 (Same as: l Hydrocodone 23:57: [place] Joanna nn Bitartrate 00 325/5) Do 5 MG Oral not exceed Tablet 4gm/day of acetaminop hen. Acetaminoph No Notes: Do M emoria en -12 not exceed l 23:57: 4 gm/day. Momo (Same as: Tylenol) Morphine No Notes: Memoria 6-12 (Same l 23:57: as:MORPhin e Sulfate) Ondansetron [...] jessi - (Same as: l 23:57: Apresoline [place] 00 ) Push over 5 minutes Albuterol No Notes: Memori a 0.833 MG/ML 03-10 (Same as: l / 23:57: Duoneb) Momo Ipratropium 00 [place] 0.167 MG/ML Inhalant Solution [DuoNeb] Saline No Notes: Memoria Flush 0.9% - (Same as: l 23:57: BD [place] 00 Posiflush) Acetaminoph No Notes: [place] en 325 MG / 03-10 (Same as: l Hydrocodone 23:57: [place] Joanna nn Bitartrate 00 325/5) Do 5 MG Oral not exceed Tablet 4gm/day of acetaminop hen. Acetaminoph No Notes: Do M emoria en -12 not exceed l 23:57: 4 gm/day. Momo (Same as: Tylenol) Morphine No Notes: Memoria 6-12 (Same l 23:57: as:MORPhin [place] 00 e Sulfate) Ondansetron No Notes: Tico jessi -12 (Same as: l 23:57: Zofran) [place] 00 MEDICATION WASTE Product Size: 4 mg Product Wasted: ___ mg Sodium No 1,000 mL, Memori a Chloride 03-10 Rate: 125 l 0.0769 23:57: ml/hr, [place] MEQ/ML 00 Infuse Injectable over: 8 Solution hr, Route: IV, Dosing Weight 102.955 kg, Total Volume: 1,000, Start date: 03/10/17 18:57:00 CDT, Duration: 30 day, Stop date: 04/09/17 18:56:00 CDT Nitroglycer No Notes: Tico jessi in 03-10 (Same l 23:57: as:Nitroqu [place] 00 ick, Nitrostat) "Do Not Crush" Sublingual tablet Hydralazine No Notes: Tico jessi - (Same as: l 23:57: Apresoline [place] 00 ) Push over 5 minutes Albuterol No Notes: Memori a 0.833 MG/ML 03-10 (Same as: l / 23:57: Duoneb) Momo Ipratropium 00 [place] 0.167 MG/ML Inhalant Solution [DuoNeb] Saline No Notes: Memoria Flush 0.9% - (Same as: l 23:57: BD [place] 00 Posiflush) Acetaminoph No Notes: Tico jessi en 325 MG / 03-10 (Same as: l Hydrocodone 23:57: [place] Joanna nn Bitartrate 00 325/5) Do 5 MG Oral not exceed Tablet 4gm/day of acetaminop hen. Acetaminoph No Notes: Do M emoria en -12 not exceed l 23:57: 4 gm/day. [place] 00 (Same as: Tylenol) Morphine No Notes: Memoria 6-12 (Same l 23:57: as:MORPhin [place] 00 e Sulfate) Ondansetron No Notes: Tico jessi -12 (Same as: l 23:57: Zofran) [place] 00 MEDICATION WASTE Product Size: 4 mg Product Wasted: ___ mg Sodium No 1,000 mL, Memori a Chloride 03-10 Rate: 125 l 0.0769 23:57: ml/hr, [place] MEQ/ML 00 Infuse Injectable over: 8 Solution hr, Route: IV, Dosing Weight 102.955 kg, Total Volume: 1,000, Start date: 03/10/17 18:57:00 CDT, Duration: 30 day, Stop date: 04/09/17 18:56:00 CDT Nitroglycer No Notes: Tico jessi in 12 (Same l 23:57: as:Nitroqu [place] 00 ick, Nitrostat) "Do Not Crush" Sublingual tablet Hydralazine No Notes: Tico jessi -12 (Same as: l 23:57: Apresoline [place] 00 ) Push over 5 minutes Albuterol No Notes: Memori a 0.833 MG/ML -12 (Same as: l / 23:57: Duoneb) [place] Ipratropium 00 [place] 0.167 MG/ML Inhalant Solution [DuoNeb] Saline No Notes: Memoria Flush 0.9% -12 (Same as: l 23:57: BD [place] 00 Posiflush) Acetaminoph No Notes: [place] jessi en 325 MG / 12 (Same as: l Hydrocodone 23:57: [place] Joanna nn Bitartrate 00 325/5) Do 5 MG Oral not exceed Tablet 4gm/day of acetaminop hen. Acetaminoph No Notes: Do M emoria en -12 not exceed l 23:57: 4 gm/day. [place] 00 (Same as: Tylenol) Morphine No Notes: Memoria 6-12 (Same l 23:57: as:MORPhin [place] 00 e Sulfate) Ondansetron No Notes: Tico [...] jessi 03-10 (Same as: l 23:57: Apresoline [place] 00 ) Push over 5 minutes Albuterol No Notes: Memori a 0.833 MG/ML 03-10 (Same as: l / 23:57: Duoneb) [place] Ipratropium 00 [place] 0.167 MG/ML Inhalant Solution [DuoNeb] Saline No Notes: Memoria Flush 0.9% 03-10 (Same as: l 23:57: BD [place] 00 Posiflush) Acetaminoph No Notes: Tico jessi en 325 MG / 03-10 (Same as: l Hydrocodone 23:57: [place] Joanna nn Bitartrate 00 325/5) Do 5 MG Oral not exceed Tablet 4gm/day of acetaminop hen. Acetaminoph No Notes: Do M emoria en 12 not exceed l 23:57: 4 gm/day. [place] 00 (Same as: Tylenol) Morphine No Notes: Memoria 03-10 (Same l 23:57: as:MORPhin [place] 00 e Sulfate) Ondansetron No Notes: Tico [...] 03-10 (Same as: l / 23:57: Duoneb) [place] Ipratropium 00 [place] 0.167 MG/ML Inhalant Solution [DuoNeb] Saline No Notes: Memoria Flush 0.9% 03-10 (Same as: l 23:57: BD [place] 00 Posiflush) Acetaminoph No Notes: Tico jessi en 325 MG / 03-10 (Same as: l Hydrocodone 23:57: [place] Joanna nn Bitartrate 00 325/5) Do 5 MG Oral not exceed Tablet 4gm/day of acetaminop hen. Acetaminoph No Notes: Do M emoria en 03-10 not exceed l 23:57: 4 gm/day. [place] 00 (Same as: Tylenol) Morphine No Notes: [...] ABX Indication : Urinary Tract Infection Rocephin 2017-0 No 1 gm, Memoria 6-12 Route: l 23:06: IVPB, Drug [place] 00 form: PDR/INJ, ONCE, Dosing Weight 102.955, kg, Priority: STAT, Start date: 03/10/17 18:06:00 CDT, Duration: 1 doses or times, Stop date: 03/10/17 18:06:00 CDT, ABX Indication : Urinary Tract Infection Rocephin 2017-0 No 1 gm, Memoria 6-12 Route: l 23:06: IVPB, Drug [place] 00 form: PDR/INJ, ONCE, Dosing Weight 102.955, kg, Priority: STAT, Start date: 03/10/17 18:06:00 CDT, Duration: 1 doses or times, Stop date: 03/10/17 18:06:00 CDT, ABX Indication : Urinary Tract Infection Rocephin 2017-0 No 1 gm, Memoria 6-12 Route: l 23:06: IVPB, Drug [place] 00 form: PDR/INJ, ONCE, Dosing Weight 102.955, kg, Priority: STAT, Start date: 03/10/17 18:06:00 CDT, Duration: 1 doses or times, Stop date: 03/10/17 18:06:00 CDT, ABX Indication : Urinary Tract Infection Rocephin 2017-0 No 1 gm, Memoria 6-12 Route: l 23:06: IVPB, Drug [place] 00 form: PDR/INJ, ONCE, Dosing Weight 102.955, kg, Priority: STAT, Start date: 03/10/17 18:06:00 CDT, Duration: 1 doses or times, Stop date: 03/10/17 18:06:00 CDT, ABX Indication : Urinary Tract Infection Saline 2016-0 No Notes: Memoria Flush 0.9% 6-12 (Same as: l 21:57: BD [place] 00 Posiflush) Saline 2017-0 No Notes: Memoria Flush 0.9% 6-12 (Same as: l 21:57: BD [place] 00 Posiflush) Saline 2017-0 No Notes: Memoria Flush 0.9% 6-12 (Same as: l 21:57: BD [place] 00 Posiflush) Saline No Notes: Memoria Flush 0.9% 6-12 (Same as: l 21:57: BD [place] 00 Posiflush) Saline No Notes: Memoria Flush 0.9% 6-12 (Same as: l 21:57: BD [place] 00 Posiflush) Saline No Notes: Memoria Flush 0.9% 6-12 (Same as: l 21:57: BD [place] 00 Posiflush) Ascorbic No 1 tab, Memoria [...] jessi - tab, l 15:00: Route: PO, [place] 00 Drug form: TAB, Daily, Dosing Weight 87.7, kg, Start date: 11/27/13 9:00:00, Duration: 30 day, Stop date: 12/26/13 9:00:00([facility] as: Folvite) Thiamine No 100 mg, 1 T[place] jessi 3-01 tab, l 15:00: Route: PO, [place] 00 Drug form: TAB, Daily, Dosing Weight 87.7, kg, Start date: 11/27/13 9:00:00, Duration: 30 day, Stop date: 12/26/13 9:00:00([facility] As: Vitamin B1) Ascorbic No 1 tab, Memoria Acid / 11-27 Route: PO, l Biotin / 15:00: Drug Form: Her bertrand Folic Acid 00 TAB, / Niacin / Dosing pantothenat Weight e / 87.7, kg, pyridoxine Daily, / Start Riboflavin date: / Thiamine 03/01/14 / Vitamin B 9:00:00, 12 Duration: 30 [...] jessi 3-01 tab, l 15:00: Route: PO, [place] Drug form: TAB, Daily, Dosing Weight 87.7, [...] jessi 3- tab, l 15:00: Route: PO, [place] 00 Drug form: TAB, Daily, Dosing Weight [...] jessi 3-01 tab, l 15:00: Route: PO, [place] 00 Drug form: TAB, Daily, Dosing Weight 87.7, kg, Start date: 11/27/13 9:00:00, Duration: 30 day, Stop date: 12/26/13 9:00:00([facility] As: Vitamin B1) Ascorbic No 1 tab, [...] 9:00:00, Duration: 30 day, Stop date: 12/26/13 9:00:00([facility] as: Folvite) Thiamine No 100 mg, 1 [place] jessi 3- tab, l 15:00: Route: PO, [place] 00 Drug form: TAB, Daily, Dosing Weight 87.7, kg, Start date: 11/27/13 9:00:00, Duration: 30 day, Stop date: 12/26/13 9:00:00([facility] As: Vitamin B1) thiamine Yes 100 mg = 1 Mem oria 100 mg oral 2-28 tab, PO, l tablet 19:21: Daily, # [place] 00 30 tab, 0 Refill(s) Multiple Yes [...] tab, PO, l Tablet 19:21: Daily, # [place] 00 30 tab, 0 Refill(s) amLODIPine Yes 10 mg = 2 Me moria 5 mg oral 2-28 tab, PO, l tablet 19:21: Daily, # [place] 00 30 tab, 0 Refill(s) Acetaminoph Yes 1 tab, PO, Memoria en 325 MG / 2-28 Q6H, Pain, l Hydrocodone 19:21: # 30 tab, H [place] Bitartrate 00 0 7.5 MG Oral Refill(s) Tablet [[place] 7.5/325] thiamine Yes 100 mg = 1 Mem oria 100 mg oral 2-28 tab, PO, l tablet 19:21: Daily, # [place] 00 30 tab, 0 Refill(s) Multiple Yes [...] tab, PO, l Tablet 19:21: Daily, # [place] 00 30 tab, 0 Refill(s) amLODIPine Yes 10 mg = 2 Me moria 5 mg oral 2-28 tab, PO, l tablet 19:21: Daily, # [place] 00 30 tab, 0 Refill(s) Acetaminoph Yes 1 tab, PO, Memoria en 325 MG / 2-28 Q6H, Pain, l Hydrocodone 19:21: # 30 tab, H ermann Bitartrate 00 0 7.5 MG Oral Refill(s) Tablet [[place] 7.5/325] thiamine Yes 100 mg = 1 [...] tab, PO, l Tablet 19:21: Daily, # [place] 00 30 tab, 0 Refill(s) amLODIPine Yes 10 mg = 2 Me moria 5 mg oral 2-28 tab, PO, l tablet 19:21: Daily, # [place] 00 30 tab, 0 Refill(s) Acetaminoph Yes 1 tab, PO, Memoria en 325 MG / 2-28 Q6H, Pain, l Hydrocodone 19:21: # 30 tab, H [place] Bitartrate 00 0 7.5 MG Oral Refill(s) Tablet [[place] 7.5/325] thiamine Yes 100 mg = 1 Mem oria 100 mg oral 2-28 tab, PO, l tablet 19:21: Daily, # [place] 00 30 tab, 0 Refill(s) Multiple Yes [...] tab, PO, l tablet 19:21: Daily, # [place] 00 30 tab, 0 Refill(s) Acetaminoph Yes 1 tab, PO, Memoria en 325 MG / 2-28 Q6H, Pain, l Hydrocodone 19:21: # 30 tab, H [place] Bitartrate 00 0 7.5 MG Oral Refill(s) Tablet [[place] 7.5/325] thiamine Yes 100 mg = 1 [...] tab, PO, l tablet 19:21: Daily, # [place] 00 30 tab, 0 Refill(s) Acetaminoph Yes 1 tab, PO, Memoria en 325 MG / 2-28 Q6H, Pain, l Hydrocodone 19:21: # 30 tab, H [place] Bitartrate 00 0 7.5 MG Oral Refill(s) Tablet [[place] 7.5/325] thiamine Yes 100 mg = 1 [...] tab, PO, l Tablet 19:21: Daily, # [place] 00 30 tab, 0 Refill(s) amLODIPine Yes 10 mg = 2 Me moria 5 mg oral 2-28 tab, PO, l tablet 19:21: Daily, # [place] 00 30 tab, 0 Refill(s) Acetaminoph Yes 1 tab, PO, Memoria en 325 MG / -28 Q6H, Pain, l Hydrocodone 19:21: # 30 tab, H [place] Bitartrate 00 0 7.5 MG Oral Refill(s) Tablet [[place] 7.5/325] Acetaminoph No 1 tab, Tico jessi en 325 MG / 11-26 Route: PO, l Hydrocodone 19:19: Drug Form: [place] Bitartrate 00 TAB, 7.5 MG Oral Dosing Tablet Weight [[place] 87.7, kg, 7.5/325] Q6H, PRN Pain, Start date: 11/26/13 13:19:00, Duration: 30 day, Stop date: 12/26/13 13:18:00Sa me as [place] 325-7.5mg Do not exceed 4gm/day of acetaminop hen. Acetaminoph No 1 tab, Tico jessi en 325 MG / 11-26 Route: PO, l Hydrocodone 19:19: Drug Form: [place] Bitartrate 00 TAB, 7.5 MG Oral Dosing Tablet Weight [[place] 87.7, kg, 7.5/325] Q6H, PRN Pain, Start date: 11/26/13 13:19:00, Duration: 30 day, Stop date: 12/26/13 13:18:00Sa me as [place] 325-7.5mg Do not exceed 4gm/day of acetaminop hen. Acetaminoph No 1 tab, Tico jessi en 325 MG / 11-26 Route: PO, l Hydrocodone 19:19: Drug Form: [place] Bitartrate 00 TAB, 7.5 MG Oral Dosing Tablet Weight [[place] 87.7, kg, 7.5/325] Q6H, PRN Pain, Start date: 11/26/13 13:19:00, Duration: 30 day, Stop date: 12/26/13 13:18:00Sa me as [place] 325-7.5mg Do not exceed 4gm/day of acetaminop hen. Acetaminoph No 1 tab, Tico jessi en 325 MG / 11-26 Route: PO, l Hydrocodone 19:19: Drug Form: [place] Bitartrate 00 TAB, 7.5 MG Oral Dosing Tablet Weight [[place] 87.7, kg, 7.5/325] Q6H, PRN Pain, Start date: 11/26/13 13:19:00, Duration: 30 day, Stop date: 12/26/13 13:18:00Sa me as [place] 325-7.5mg Do not exceed 4gm/day of acetaminop hen. Acetaminoph No 1 tab, Tico jessi en 325 MG / 11-26 Route: PO, l Hydrocodone 19:19: Drug Form: [place] Bitartrate 00 TAB, 7.5 MG Oral Dosing Tablet Weight [[place] 87.7, kg, 7.5/325] Q6H, PRN Pain, Start date: 11/26/13 13:19:00, Duration: 30 day, Stop date: 12/26/13 13:18:00Sa me as [place] 325-7.5mg Do not exceed 4gm/day of acetaminop hen. Acetaminoph No 1 tab, Tico jessi en 325 MG / 11-26 Route: PO, l Hydrocodone 19:19: Drug Form: [place] Bitartrate 00 TAB, 7.5 MG Oral Dosing Tablet Weight [[place] 87.7, kg, 7.5/325] Q6H, PRN Pain, Start date: 11/26/13 13:19:00, Duration: 30 day, Stop date: 12/26/13 13:18:00Sa me as [place] 325-7.5mg Do not exceed 4gm/day of acetaminop hen. Norvasc No 10 mg, 2 Memori a 2-26 tab, l 21:25: Route: PO, [place] 00 Drug form: TAB, Daily, Dosing Weight 87.7, kg, Priority: NOW, Start date: 11/24/13 15:25:00, Duration: 30 day, Stop date: 12/24/13 9:00:00(Sa me as: Norvasc) Norvasc No 10 mg, 2 Memori a 2-26 tab, l 21:25: Route: PO, [place] 00 Drug form: TAB, Daily, Dosing Weight 87.7, kg, Priority: NOW, Start date: 11/24/13 15:25:00, Duration: 30 day, Stop date: 12/24/13 9:00:00([facility] as: Norvas) Norvasc 2013-0 No 10 mg, 2 Memori a 2-26 tab, l 21:25: Route: PO, [place] 00 Drug form: TAB, Daily, Dosing Weight 87.7, kg, Priority: NOW, Start date: 11/24/13 15:25:00, Duration: 30 day, Stop date: 12/24/13 9:00:00( me as: Norvas) Norvasc 2013-0 No 10 mg, 2 Memori a 2-26 tab, l 21:25: Route: PO, [place] 00 Drug form: TAB, Daily, Dosing Weight 87.7, kg, Priority: NOW, Start date: 11/24/13 15:25:00, Duration: 30 day, Stop date: 12/24/13 9:00:00( me as: Norvas) Norvasc 2013-0 No 10 mg, 2 Memori a 2-26 tab, l 21:25: Route: PO, [place] 00 Drug form: TAB, Daily, Dosing Weight 87.7, kg, Priority: NOW, Start date: 11/24/13 15:25:00, Duration: 30 day, Stop date: 12/24/13 9:00:00([facility] as: Norvas) Norvasc 2013-0 No 10 mg, 2 Memori a 2-26 tab, l 21:25: Route: PO, [place] 00 Drug form: TAB, Daily, Dosing Weight 87.7, kg, Priority: NOW, Start date: 11/24/13 15:25:00, Duration: 30 day, Stop date: 12/24/13 9:00:00( [facility] Ceftriaxone 2013-0 No 1 gm, Memor ia 2-26 Route: IV, l 10:07: ONCE, [place] 00 Dosing Weight 87.7, kg, Priority: STAT, [...] PLUS and infuse over 30 min Ceftriaxone 2013- No 1 gm, Memor ia 2-26 Route: [...] 2-26 mL, Route: l 10:06: IV, Drug [place] 00 form: INJ, ONCE, Dosing Weight 87.7, kg, Priority: STAT, Start date: 11/24/13 4:06:00, Stop date: 11/24/13 4:06:00 Tylenol 2013-0 No 650 mg, 2 Memor ia 2-26 tab, l 10:06: Route: NG, [place] 00 Drug form: TAB, Q4H, Dosing Weight [...] 2-26 mL, Route: l 10:06: IV, Drug [place] 00 form: INJ, ONCE, Dosing Weight 87.7, kg, Priority: STAT, Start date: 11/24/13 4:06:00, Stop date: 11/24/13 4:06:00 Tylenol 2013-0 No 650 mg, 2 Memor ia 2-26 tab, l 10:06: Route: NG, [place] 00 Drug form: TAB, Q4H, Dosing Weight 87.7, kg, PRN as needed for fever, Start date: 11/24/13 4:06:00, Duration: 30 day, Stop date: 12/24/13 4:05:00Do not exceed 4 gm/day. (Same as: Tylenol) Vancomycin 2013-0 No 1 gm, 200 Me moria 2-26 mL, Route: l 10:06: IV, Drug [place] 00 form: INJ, ONCE, Dosing Weight 87.7, kg, Priority: STAT, Start date: 11/24/13 4:06:00, Stop date: 11/24/13 4:06:00 Tylenol 2013-0 No 650 mg, 2 Memor ia 2-26 tab, l 10:06: Route: NG, [place] 00 Drug form: TAB, Q4H, Dosing Weight 87.7, kg, PRN as needed for fever, Start date: 11/24/13 4:06:00, Duration: 30 day, Stop date: 12/24/13 4:05:00Do not exceed 4 gm/day. (Same as: Tylenol) Vancomycin 2013-0 No 1 gm, 200 Me moria 2-26 mL, Route: l 10:06: IV, Drug [place] 00 form: INJ, ONCE, Dosing Weight 87.7, [...] jessi 2-26 tab, l 03:00: Route: PO, [place] 00 Drug form: TAB, Q12H, Dosing Weight [...] jessi 2-26 tab, l 03:00: Route: PO, [place] 00 Drug form: TAB, Q12H, Dosing Weight 87.7, kg, Start date: 11/23/13 21:00:00, Stop date: 12/23/13 9:00:00(Sa me as: Lopressor) Lopressor 2013-0 No 50 mg, 1 T[place] jessi 2-26 tab, l 03:00: Route: PO, [place] 00 Drug form: TAB, Q12H, Dosing Weight 87.7, kg, Start date: 11/23/13 21:00:00, Stop date: 12/23/13 9:00:00(Sa me as: Lopressor) pantoprazol 2013-0 No 40 mg, Tico jessi e 2-25 Route: l 15:00: IVP, [place] 00 Daily, Dosing Weight 90.909, kg, Start date: 11/23/13 9:00:00, Duration: 30 day, Stop date: 12/22/13 9:00:00For IV push reconstitu te with 10 ml 0.9% sodium chloride and push over 2 minutes. (Same as: Protonix) pantoprazol 2013-0 No 40 mg, Tico jessi e 2-25 Route: l 15:00: IVP, [place] Daily, Dosing Weight 90.909, kg, Start date: 11/23/13 9:00:00, Duration: 30 day, Stop date: 12/22/13 9:00:00For IV push reconstitu te with 10 ml 0.9% sodium chloride and push over 2 minutes. (Same as: Protonix) pantoprazol 2013-0 No 40 mg, Tico jesis e 2-25 Route: l 15:00: IVP, [place] 00 Daily, Dosing Weight 90.909, kg, Start date: 11/23/13 9:00:00, Duration: 30 day, Stop date: 12/22/13 9:00:00For IV push reconstitu te with 10 ml 0.9% sodium chloride and push over 2 minutes. (Same as: Protonix) pantoprazol 2013-0 No 40 mg, Tico jessi e 2-25 Route: l 15:00: IVP, Momo Daily, Dosing Weight 90.909, kg, Start date: 11/23/13 9:00:00, Duration: 30 day, Stop date: 12/22/13 9:00:00For IV push reconstitu te with 10 ml 0.9% sodium chloride and push over 2 minutes. (Same as: Protonix) pantoprazol 2013-0 No 40 mg, Tico jessi e 2-25 Route: l 15:00: IVP, [place] 00 Daily, Dosing Weight 90.909, kg, Start date: 11/23/13 9:00:00, Duration: 30 day, Stop date: 12/22/13 9:00:00For IV push reconstitu te with 10 ml 0.9% sodium chloride and push over 2 minutes. (Same as: Protonix) pantoprazol No 40 mg, Tico jessi e 2-25 Route: l 15:00: IVP, [place] 00 Daily, Dosing Weight 90.909, kg, Start [...] 2-25 mL, Route: l 03:00: PO, Drug [place] 00 form: LIQ, Q12H, Dosing Weight 90.909, kg, Start date: 11/22/13 21:00:00, Stop date: 12/22/13 9:00:00(Sa me as: Colace) Saline No 5 ml, Memoria Flush 0.9% 2-25 Route: l 03:00: IVP, Drug [place] 00 Form: INJ, Dosing Weight 90.909, kg, [...] 0.9% 2-25 Route: l 03:00: IVP, Drug [place] 00 Form: INJ, Dosing Weight 90.909, kg, Q12H, Start date: 11/22/13 21:00:00, Duration: 30 day, Stop date: 12/22/13 9:00:00(Sa me as: BD Posiflush) Docusate 2013-0 No 100 mg, 10 Mem oria 2-25 mL, Route: l 03:00: PO, Drug [place] 00 form: LIQ, Q12H, Dosing Weight 90.909, [...] 2-25 mL, Route: l 03:00: PO, Drug [place] 00 form: LIQ, Q12H, Dosing Weight 90.909, [...] 21:00:00, Duration: 30 day, Stop date: 12/22/13 9:00:00( me as: BD Posiflush) Docusate 2014-0 No 100 mg, 10 Mem oria 2-25 mL, Route: l 03:00: PO, Drug form: LIQ, Q12H, Dosing Weight 90.909, kg, Start date: 11/22/13 21:00:00, Stop date: 12/22/13 9:00:00( me as: Colace) Sodium 2014-0 No 1,000 mL, Memori a Chloride 2-24 Rate: 75 l 0.9% IV 22:38: ml/hr, [place] 1,000 mL 00 Infuse over: 13.3 hr, [...] Rate: 75 l 0.9% IV 22:38: ml/hr, [place] 1,000 mL 00 Infuse over: 13.3 hr, [...] Rate: 75 l 0.9% IV 22:38: ml/hr, [place] 1,000 mL 00 Infuse over: 13.3 hr, Route: IV, Dosing Weight 87.7 kg, Total Volume: 1,000, Start date: 11/22/13 16:38:00, Duration: 3 day, Stop date: 11/25/13 16:37:00 Sodium 2014-0 No 1,000 mL, Memori a Chloride 2-24 Rate: 75 l 0.9% IV 22:38: ml/hr, [place] 1,000 mL 00 Infuse over: 13.3 hr, Route: IV, Dosing Weight 87.7 kg, Total Volume: 1,000, Start date: 11/22/13 16:38:00, Duration: 3 day, Stop date: 11/25/13 16:37:00 Sodium 2014-0 No 1,000 mL, Memori a Chloride 2-24 Rate: 75 l 0.154 22:08: ml/hr, [place] MEQ/ML 00 Infuse Injectable over: 13.5 Solution hr, Route: IV, Dosing Weight 87.7 kg, Total Volume: 1,011.2, Start date: 11/22/13 16:08:00, Duration: 3 day, Stop date: 11/25/13 16:07:00 Sodium 2014-0 No 1,000 mL, Memori a Chloride 2-24 Rate: 75 l 0.154 22:08: ml/hr, [place] MEQ/ML 00 Infuse Injectable over: 13.5 Solution [...] 2-24 Rate: 75 l 0.154 22:08: ml/hr, [place] MEQ/ML 00 Infuse Injectable over: 13.5 Solution [...] 2-24 mL, Route: l 22:05: IVP, Drug [place] 00 form: INJ, Q3H, Dosing Weight 87.7, [...] 2-24 mL, Route: l 22:05: IV, Drug [place] 00 form: INJ, Q8H, Dosing Weight 87.7, kg, PRN Nausea, Start date: 11/22/13 16:05:00, Duration: 30 day, Stop date: 12/22/13 17:04:00(S anthony as: Zofran) Ativan 2014-0 No 1 mg, 0.5 Memori a 2-24 mL, Route: l 22:05: IVP, Drug [place] 00 form: INJ, Q3H, Dosing Weight 87.7, kg, PRN as needed for anxiety, Start date: 11/22/13 16:05:00, Duration: 30 day, Stop date: 12/22/13 16:04:00(S anthony as: Ativan) Morphine 2014-0 No 2 mg, 1 Memori a 2-24 mL, Route: l 22:05: IVP, Drug [place] 00 form: INJ, Q2H, Dosing Weight 87.7, [...] 2-24 mL, Route: l 22:05: IVP, Drug [place] 00 form: INJ, Q3H, Dosing Weight 87.7, kg, PRN as needed for anxiety, Start date: 11/22/13 16:05:00, Duration: 30 day, Stop date: 12/22/13 16:04:00(S anthony as: Ativan) Morphine 2014-0 No 2 mg, 1 Memori a 2-24 mL, Route: l 22:05: IVP, Drug [place] 00 form: INJ, Q2H, Dosing Weight 87.7, kg, PRN Pain, Start date: 11/22/13 16:05:00, Duration: 30 day, Stop date: 12/22/13 16:04:00(S anthony as:MORPhin e Sulfate) Zofran 2014-0 No 4 mg, 2 Memoria 2-24 mL, Route: l 22:05: IV, Drug [place] 00 form: INJ, Q8H, Dosing Weight 87.7, [...] 2-24 mL, Route: l 22:05: IV, Drug [place] 00 form: INJ, Q8H, Dosing Weight 87.7, [...] 2-24 mL, Route: l 22:05: IVP, Drug [place] 00 form: INJ, Q2H, Dosing Weight 87.7, kg, PRN Pain, Start date: 11/22/13 16:05:00, Duration: 30 day, Stop date: 12/22/13 16:04:00(S anthony as:MORPhin e Sulfate) Zofran 2014-0 No 4 mg, 2 Memoria 2-24 mL, Route: l 22:05: IV, Drug [place] 00 form: INJ, Q8H, Dosing Weight 87.7, kg, PRN Nausea, Start date: 11/22/13 16:05:00, Duration: 30 day, Stop date: 12/22/13 17:04:00(S anthony as: Zofran) Ativan 2014-0 No 1 mg, 0.5 Memori a 2-24 mL, Route: l 22:05: IVP, Drug [place] 00 form: INJ, Q3H, Dosing Weight 87.7, [...] mL, Rate: l 21:21: Start at 5 00 mgTitrate to maintain SBP 110-150 mmHg., Dosing Weight 90.909, kg, Route: IV, Total Volume: 200, Start Date: 11/22/13 15:21:00, Duration: 30 day, Stop date: 12/22/13 15:20:00, Replace Every: 24 hrSame as: Cardene Concentrat ion: (0.2 mg /1 ml ) Magnesium 2013-0 No 30 mL, Memori a Hydroxide 2-24 Route: PO, l 21:21: Drug Form: [place] 00 SUSP, Dosing Weight 90.909, kg, BID, [...] 2-24 Route: PO, l 21:21: Drug Form: [place] 00 SUSP, Dosing Weight 90.909, kg, BID, [...] 2-24 Route: PO, l 21:21: Drug Form: 00 SUSP, Dosing Weight 90.909, kg, BID, [...] mL, Rate: l 21:21: Start at 5 [place] 00 mgTitrate to maintain SBP 110-150 mmHg., [...] ion: (0.2 mg /1 ml ) Magnesium No 30 mL, Memori a Hydroxide 2-24 [...] 2-24 mL, Route: l 21:07: IVP, Drug [place] 00 form: INJ, Q4H, Dosing Weight 90.909, kg, PRN Elevated BP, Start date: 11/22/13 15:07:00, Duration: 30 day, Stop date: 12/22/13 15:06:00, SBP>150(Sa me as: Apresoline ) Push over 5 minutes Labetalol 2013-0 No 20 mg, 4 [place] 2-24 mL, Route: l 21:07: IVP, Drug [place] 00 form: INJ, Q10Min, Dosing Weight 90.909, kg, PRN Other -See Comment, Start date: 11/22/13 15:07:00, Duration: 30 day, Stop date: 12/22/13 16:06:00(S anthony as: Normodyne, Trandate) Push over 2 minutes Give bolus over 2-3 minutes. Hydralazine 2013-0 No 20 mg, 1 Me moria 2-24 mL, Route: l 21:07: IVP, Drug [place] 00 form: INJ, Q4H, Dosing Weight 90.909, kg, PRN Elevated BP, Start date: 11/22/13 15:07:00, Duration: 30 day, Stop date: 12/22/13 15:06:00, SBP>150(Sa me as: Apresoline ) Push over 5 minutes Labetalol 2014-0 No 20 mg, 4 [place] 2-24 mL, Route: l 21:07: IVP, Drug [...] 2-24 mL, Route: l 21:07: IVP, Drug [place] 00 form: INJ, Q10Min, Dosing Weight 90.909, [...] 2-24 mL, Route: l 21:07: IVP, Drug [place] 00 form: INJ, Q4H, Dosing Weight 90.909, [...] ion: (0.2 mg /1 ml ) Nicardipine 2013- No 40 mg, 200 Memoria 2-24 mL, Rate: l 18:57: Titrate Dosing Weight 90.909, kg, Route: IV, Total Volume: 200 mL, Start Date: 11/22/13 12:57:00, Duration: 30 day, Stop date: 12/22/13 12:56:00, Replace Every: 24 hrSame as: Cardene Concentrat ion: (0.2 mg /1 ml ) Nicardipine 2013- No 40 mg, 200 Memoria 2-24 mL, Rate: l 18:57: Titrate Dosing Weight 90.909, kg, Route: IV, Total Volume: 200 mL, Start Date: 11/22/13 12:57:00, Duration: 30 day, Stop date: 12/22/13 12:56:00, Replace Every: 24 hrSame as: Cardene Concentrat ion: (0.2 mg /1 ml ) Nicardipine 2013- No 40 mg, 200 Memoria [...] Duration: 30 day, Stop date: 12/22/13 13:45:00(S atnhony as: BD Posiflush) Saline 2013-0 No 5 mL, Memoria Flush 0.9% 2-24 Route: l 18:46: IVP, Drug [place] 00 Form: INJ, Dosing Weight 79.545, kg, PRN, PRN Line Flush, Start date: 11/22/13 12:46:00, Duration: 30 day, Stop date: 12/22/13 13:45:00(S anthony as: BD Posiflush) Saline 2013-0 No 5 mL, Memoria Flush 0.9% 2-24 Route: l 18:46: IVP, Drug [place] 00 Form: INJ, Dosing Weight 79.545, kg, PRN, PRN Line Flush, Start date: 11/22/13 12:46:00, Duration: 30 day, Stop date: 12/22/13 13:45:00(S anthony as: BD Posiflush) Saline 2013-0 No 5 mL, Memoria Flush 0.9% 2-24 Route: l 18:46: IVP, Drug [place] 00 Form: INJ, Dosing Weight 79.545, kg, PRN, PRN Line Flush, Start date: 11/22/13 12:46:00, Duration: 30 day, Stop date: 12/22/13 13:45:00(S anthony as: BD Posiflush) Saline 2013-0 No 5 mL, Memoria Flush 0.9% 2-24 Route: l 18:46: IVP, Drug [place] 00 Form: INJ, Dosing Weight 79.545, kg, PRN, PRN Line Flush, Start date: 11/22/13 12:46:00, Duration: 30 day, Stop date: 12/22/13 13:45:00(S anthony as: BD Posiflush) Saline 2013-0 No 5 mL, Memoria Flush 0.9% 2-24 Route: l 18:46: IVP, Drug [place] 00 Form: INJ, Dosing Weight 79.545, kg, PRN, PRN Line Flush, Start date: 11/22/13 12:46:00, Duration: 30 day, Stop date: 12/22/13 13:45:00(S anthony as: BD Posiflush) Benicar 20 2012-0 Yes Rj 20 mg, 1 M emoria [...] n 55 tab, Substituti on Allowed, TAB [place] Yes Rj 1-2 tab, Memori a 7.5/325 2-05 Maia PO, Q4-6H, l oral tablet 15:06: PRN, 20 Her bertrand 43 tab, Pain, Substituti on Allowed, Maintenanc e [place] Yes Rj 1-2 tab, Memori a 7.5/325 2-05 Maia PO, Q4-6H, l oral tablet 15:06: PRN, 20 Her bertrand 43 tab, Pain, Substituti on Allowed, Maintenanc e [place] Yes Rj 1-2 tab, Memori a 7.5/325 2-05 Maia PO, Q4-6H, l oral tablet 15:06: PRN, 20 Her bertrand 43 tab, Pain, Substituti on Allowed, Maintenanc e [place] Yes Rj 1-2 tab, Memori a 7.5/325 2-05 Maia PO, Q4-6H, l oral tablet 15:06: PRN, 20 Her bertrand 43 tab, Pain, Substituti on Allowed, Maintenanc e [place] 2012-0 Yes Rj 1-2 tab, Memori a 7.5/325 2-05 Maia PO, Q4-6H, l oral tablet 15:06: PRN, 20 Her bertrand 43 tab, Pain, Substituti on Allowed, Maintenanc e [place] 2012- Yes Rj 1-2 tab, Memori a 7.5/325 2-05 Maia PO, Q4-6H, l oral tablet 15:06: PRN, 20 Her bertrand 43 tab, Pain, Substituti on Allowed, Maintenanc e Motrin 2012-0 No Rj 600 mg, 1 Tico jessi 2-05 Maia tab, l 14:29: Route: PO, [place] 00 Drug form: TAB, ONCE, Dosing Weight [...] 2-05 Maia tab, l 14:29: Route: PO, [place] 00 Drug form: TAB, ONCE, Dosing Weight [...] 11/03/12 8:29:00, Stop date: 11/03/12 8:29:00 Motrin 2013-0 No Rj 600 mg, 1 Tico jessi 2-05 Maia tab, l 14:29: Route: PO, [place] 00 Drug form: TAB, ONCE, Dosing Weight 79.545, kg, Priority: STAT, Start date: 11/03/12 8:29:00, Stop date: 11/03/12 8:29:00 clonidine 2012-0 No [place] 0.1 mg, 1 Memoria 2-05 Jackie tab, l 13:48: Route: PO, Drug form: TAB, ONCE, Dosing Weight 79.545, kg, Priority: STAT, Start date: 11/03/12 7:48:00, Stop date: 11/03/12 7:48:00 clonidine 2013-0 No [place] 0.1 mg, 1 [facility] 2-05 Jackie tab, l 13:48: Route: PO, Drug form: TAB, ONCE, Dosing Weight 79.545, kg, Priority: STAT, Start date: 11/03/12 7:48:00, Stop date: 11/03/12 7:48:00 clonidine 2013-0 No [place] 0.1 mg, 1 [facility] 2-05 [...] 2-05 Jackie tab, l 13:48: Route: PO, [place] 00 Drug form: TAB, ONCE, Dosing Weight [...] ONCE, Start date: 01/08/12 17:00:00, 1,000 ml [place] 5/325 No Mohan 1 tab, [facility] oral tablet 01-07 Ahmed Route: PO, l 21:22: ONCE, Momo 00 Start date: 01/08/12 16:22:00, Stop date: 01/08/12 16:22:00 [place] 5/325 No Mohan 1 tab, [facility] oral tablet - Ahmed Route: PO, l 21:22: ONCE, [place] 00 Start date: 01/08/12 16:22:00, Stop date: 01/08/12 16:22:00 [place] [address]/325 No Mohan 1 tab, [facility] oral tablet - Ahmed Route: PO, l 21:22: ONCE, Momo 00 Start date: 01/08/12 16:22:00, Stop date: 01/08/12 16:22:00 [place] [address]/325 No Mohan 1 tab, [facility] oral tablet - Ahmed Route: PO, l 21:22: ONCE, Momo 00 Start date: 01/08/12 16:22:00, Stop date: 01/08/12 16:22:00 [place] [address]/325 No Mohan 1 tab, [facility] oral tablet 01-07 Ahmed Route: PO, l 21:22: ONCE, Momo 00 Start date: 01/08/12 16:22:00, Stop date: 01/08/12 16:22:00 [place] [address]/325 No Mohan 1 tab, [facility] oral tablet - Ahmed Route: PO, l 21:22: ONCE, [place] 00 Start date: 01/08/12 16:22:00, Stop date: 01/08/12 [...] Memoria 4-11 [place] Rate: l 19:56: 1,000 [place] 00 ml/hr, Infuse over: 1 hr, Route: IV, Dosing Weight 115.5 kg, Total Volume: 1,000, Start date: 01/08/12 14:56:00, Duration: 30 day, Stop date: 02/07/12 14:55:00 NS 1,000 mL No Manuel M 1,000 mL, [facility]oria 4-11 [place] Rate: l 19:56: 1,000 [place] 00 ml/hr, Infuse over: 1 hr, Route: [...] Memoria 4-11 [place] Rate: l 19:56: 1,000 [place] 00 ml/hr, Infuse over: 1 hr, Route: [...] PO, BID, l tablet 18:55: PRN, 30 [place] 47 tab, Pain, Substituti on Allowed Napros[place] Yes Mohan 375 mg, Me moria 375 mg oral 4-11 Ahmed PO, BID, l tablet 18:55: PRN, 30 Momo 47 tab, Pain, Substituti on Allowed Naprosyn Yes Mohan 375 mg, Me moria 375 mg oral 4-11 Ahmed PO, BID, l tablet 18:55: PRN, 30 [place] 47 tab, Pain, Substituti on Allowed Naprosyn Yes Mohan 375 mg, Me moria 375 mg oral 4-11 Ahmed PO, BID, l tablet 18:55: PRN, 30 Momo 47 tab, Pain, Substituti on Allowed Naprosyn Yes Mohan 375 mg, Me moria 375 mg oral 4-11 Ahmed PO, BID, l tablet 18:55: PRN, 30 [place] 47 tab, Pain, Substituti on Allowed Naprosyn [...] Ahmed tablets, l tablet 18:55: PO, Q4-6H, Joanan nn 37 PRN, 30 tab, for Pain, Substituti on Allowed, Maintenanc e Immunizations Ordered Filled Immunization Date Status Comments [facility] e Immunization Name Name influenza virus 2018-06-29 Completed [facility] vaccine, live, 00:00:00 Momo trivalent influenza virus 2018-06-29 Completed [facility] vaccine, live, 00:00:00 Momo trivalent influenza virus 2018-06-29 Completed [facility] vaccine, live, 00:00:00 Momo trivalent influenza virus 2018-06-29 Completed [facility] vaccine, live, 00:00:00 Momo trivalent influenza virus 2018-06-22 Completed [facility] vaccine, 00:00:00 [place] inactivated influenza virus 2018-06-22 Completed [facility] vaccine, 00:00:00 Momo inactivated influenza virus 2018-06-22 Completed [facility] vaccine, 00:00:00 Momo inactivated influenza virus 2018-06-22 Completed [facility] vaccine, 00:00:00 Momo inactivated hepatitis B adult 2018-05-18 Completed [facility] l vaccine 00:00:00 [place] hepatitis B adult 2018-05-18 Completed [facility] l vaccine 00:00:00 [place] hepatitis B adult 2018-05-18 Completed [facility] l vaccine 00:00:00 Momo hepatitis B adult 2018-05-18 Completed [facility] l vaccine 00:00:00 Momo hepatitis B adult 2018-01-23 Completed [facility] l vaccine 00:00:00 [place] hepatitis B adult 2018-01-23 Completed [facility] l vaccine 00:00:00 [place] hepatitis B adult 2018-01-23 Completed [facility] l vaccine 00:00:00 [place] hepatitis B adult 2018-01-23 Completed [facility] l vaccine 00:00:00 [place] hepatitis B adult 2017-12-22 Completed [facility] l [...] adult 2017-11-24 Completed [facility] l vaccine 00:00:00 [place] hepatitis B adult 2017-10-03 Completed [facility] l vaccine 00:00:00 Momo hepatitis B adult 2017-10-03 Completed [facility] l vaccine 00:00:00 [place] hepatitis B adult 2017-10-03 Completed [facility] l vaccine 00:00:00 [place] hepatitis B adult 2017-10-03 Completed [facility] vaccine 00:00:00 Momo influenza virus 2017-06-09 Completed [facility] vaccine, 00:00:00 Momo inactivated influenza virus 2017-06-09 Completed [facility] vaccine, 00:00:00 [place] inactivated influenza virus 2017-06-09 Completed [facility] vaccine, 00:00:00 [place] inactivated influenza virus 2017-06-09 Completed [facility] vaccine, 00:00:00 Momo inactivated hepatitis B adult 2017-06-04 Completed [facility] vaccine 00:00:00 [place] hepatitis B adult 2017-06-04 Completed [facility] vaccine 00:00:00 Momo hepatitis B adult 2017-06-04 Completed [facility] vaccine 00:00:00 [place] hepatitis B adult 2017-06-04 Completed [facility] l vaccine 00:00:00 [place] hepatitis B adult 2017-05-02 Completed [facility] vaccine 00:00:00 Momo hepatitis B adult 2017-05-02 Completed [facility] vaccine 00:00:00 [place] hepatitis B adult 2017-05-02 Completed [facility] l vaccine 00:00:00 Momo hepatitis B adult 2017-05-02 Completed [facility] vaccine 00:00:00 Momo pneumococcal 2017-04-11 Completed [facility] 13-valent vaccine 00:32:00 Momo pneumococcal 2017-04-11 Completed [facility] 13-valent vaccine 00:32:00 Momo pneumococcal 2017-04-11 Completed [facility] 13-valent vaccine 00:32:00 [place] pneumococcal 2017-04-11 Completed [facility] 13-valent vaccine 00:32:00 Momo pneumococcal 2017-04-11 Completed [facility] 23-valent vaccine 00:00:00 [place] pneumococcal 2017-04-11 Completed [facility] 23-valent vaccine 00:00:00 [place] pneumococcal 2017-04-11 Completed [facility] 23-valent vaccine 00:00:00 [place] pneumococcal 2017-04-11 Completed [facility] 23-valent vaccine 00:00:00 [place] hepatitis B adult 2017-03-29 Completed [facility] l vaccine 00:00:00 Momo hepatitis B adult 2017-03-29 Completed [facility] l vaccine 00:00:00 [place] hepatitis B adult 2017-03-29 Completed [facility] l vaccine 00:00:00 [place] hepatitis B adult 2017-03-29 Completed [facility] l vaccine 00:00:00 [place] influenza virus Unknown Completed [facility] vaccine, live, Momo trivalent influenza virus Unknown Completed [facility] vaccine, Mmoo inactivated hepatitis B adult Unknown Completed [facility] l vaccine Momo hepatitis B adult Unknown Completed [facility] vaccine [place] hepatitis B adult Unknown Completed [facility] l vaccine Momo hepatitis B adult Unknown Completed [facility] l vaccine [place] hepatitis B adult Unknown Completed [facility] vaccine [place] influenza virus Unknown Completed [facility] vaccine, Momo inactivated hepatitis B adult Unknown Completed [facility] l vaccine [place] hepatitis B adult Unknown Completed [facility] vaccine [place] pneumococcal Unknown Completed [facility] 13-valent vaccine Momo pneumococcal Unknown Completed [facility] 23-valent vaccine [place] hepatitis B adult Unknown Completed [facility] l vaccine Momo influenza virus Unknown Completed [facility] vaccine, live, [place] trivalent influenza virus Unknown Completed [facility] vaccine, [place] inactivated hepatitis B adult Unknown Completed [facility] l vaccine [place] hepatitis B adult Unknown Completed [facility] vaccine [place] hepatitis B adult Unknown Completed [facility] l vaccine [place] hepatitis B adult Unknown Completed [facility] vaccine [place] hepatitis B adult Unknown Completed [facility] vaccine [place] influenza virus Unknown Completed [facility] vaccine, Momo inactivated hepatitis B adult Unknown Completed [facility] l vaccine [place] hepatitis B adult Unknown Completed [facility] vaccine [place] pneumococcal Unknown Completed [facility] 13-valent vaccine [place] pneumococcal Unknown Completed [facility] 23-valent vaccine Momo hepatitis B adult Unknown Completed [facility] l vaccine [place] Vital Signs Vital Name Observation Time Observation Value Comments Source Systolic blood 2022-12-02 22:30:00 159 mm[Hg] [facility] Diastolic blood 2022-12-02 22:30:00 99 mm[Hg] Unive rsity of pressure [facility] Heart rate 2022-12-02 22:30:00 78 /min [facility] Respiratory rate 2022-12-02 22:30:00 18 /min [facility] Oxygen saturation in 2022-12-02 22:30:00 100 /min [facility] Arterial blood by [facility] Pulse oximetry [place] Body temperature 2022-12-02 17:38:00 36.33 Brittany [facility] Body height 2022-12-02 17:38:00 170.2 cm [facility] Body weight 2022-12-02 17:38:00 92.987 kg [facility] BMI 2022-12-02 17:38:00 32.11 kg/m2 [facility] Systolic (mm Hg) 2022-12-14 12:49:16 Tico rial Momo Diastolic (mm Hg) 2022-12-14 12:49:16 Mem orial [place] Heart Rate 2022-12-14 12:49:16 [facility] Temperature Oral (F) 2022-12-14 12:49:02 98.3 F [facility] Respitory Rate 2022-12-09 15:09:00 [facility]ori al [place] Respitory Rate 2022-12-09 15:00:00 Memori al [place] Systolic (mm Hg) 2022-12-09 15:00:00 Tico rial Momo Diastolic (mm Hg) 2022-12-09 15:00:00 Mem orial Momo Temperature Oral (F) 2022-12-09 15:00:00 98.5 F [facility] [place] Respitory Rate 2022-12-09 14:45:00 Memori al Momo Systolic (mm Hg) 2022-12-09 14:45:00 Tico rial Momo Diastolic (mm Hg) 2022-12-09 14:45:00 Mem orial [place] Systolic (mm Hg) 2022-12-09 14:30:00 Tico rial Momo Diastolic (mm Hg) 2022-12-09 14:30:00 Mem orial Ommo Temperature Oral (F) 2022-12-09 11:00:00 98.3 F [facility] Heart Rate 2022-12-09 04:14:31 [facility] [place] Heart Rate 2022-12-09 04:13:28 [facility] [place] Temperature Oral (F) 2022-12-09 04:13:00 97.9 F [facility] [place] Heart Rate 2022-12-09 02:07:00 [facility] [place] Temperature Oral (F) 2022-12-04 21:47:07 98.1 F [facility] Height 2022-12-03 02:25:00 5 [ft_i] [facility] Weight 2022-12-03 02:25:00 [facility] Mmoo BMI Calculated 2022-12-03 02:25:00 Mem[facility] al Momo Temperature Oral (F) 2019-08-20 19:22:00 98.6 F [facility] [place] Heart Rate 2019-08-20 19:22:00 [facility] Momo Respitory Rate 2019-08-20 19:22:00 [facility] [place] Systolic (mm Hg) 2019-08-20 19:22:00 Tico rial Momo Diastolic (mm Hg) 2019-08-20 19:22:00 Mem orial [place] Temperature Oral (F) 2019-08-20 18:00:00 98.6 F [facility] Heart Rate 2019-08-20 18:00:00 [facility] Momo Respitory Rate 2019-08-20 18:00:00 [facility] [place] Systolic (mm Hg) 2019-08-20 18:00:00 Tico rial [place] Diastolic (mm Hg) 2019-08-20 18:00:00 Mem orial Momo Temperature Oral (F) 2019-08-20 14:01:00 98.2 F [facility] [place] Heart Rate 2019-08-20 14:01:00 [facility] Momo Respitory Rate 2019-08-20 14:01:00 [facility] [place] Systolic (mm Hg) 2019-08-20 14:01:00 Tico rial [place] Diastolic (mm Hg) 2019-08-20 14:01:00 Mem o[facility] Momo Height 2019-08-19 18:35:00 170.18 cm [facility]o BMI Calculated 2019-08-19 18:35:00 [facility] [place] Weight 2019-08-19 18:35:00 [facility] Momo Systolic (mm Hg) 2019-01-26 20:26:00 Tico rial [place] Diastolic (mm Hg) 2019-01-26 20:26:00 Mem orial [place] Heart Rate 2019-01-26 20:26:00 [facility] Momo Systolic (mm Hg) 2019-01-21 19:27:00 Tico rial Momo Diastolic (mm Hg) 2019-01-21 19:27:00 Mem orial [place] Heart Rate 2019-01-21 19:27:00 [facility] Momo Heart Rate 2019-01-19 18:16:00 [facility] [place] Systolic (mm Hg) 2019-01-19 18:16:00 Tico rial Momo Diastolic (mm Hg) 2019-01-19 18:16:00 Mem orial [place] Systolic (mm Hg) 2018-12-17 19:33:00 Tico rial [place] Diastolic (mm Hg) 2018-12-17 19:33:00 Mem orial Momo Heart Rate 2018-12-17 19:33:00 [facility] Momo Systolic (mm Hg) 2018-12-15 17:50:00 Tico rial [place] Diastolic (mm Hg) 2018-12-15 17:50:00 Mem orial [place] Heart Rate 2018-12-15 17:50:00 [facility] Momo Height 2018-09-23 23:23:00 170.18 cm [facility] [place] BMI Calculated 2018-09-23 23:23:00 [facility] [place] Weight 2018-09-23 23:23:00 [facility] [place] BMI Calculated 2018-08-25 19:57:00 [facility] al Momo Weight 2018-08-25 19:57:00 [facility] [place] Height 2018-08-25 19:57:00 167.64 cm [facility]o Systolic (mm Hg) 2018-08-25 19:57:00 Tico rial [place] Diastolic (mm Hg) 2018-08-25 19:57:00 Mem orial [place] Heart Rate 2018-08-25 19:57:00 [facility] [place] Temperature Oral (F) 2018-08-25 19:57:00 98.1 F [facility] Momo Systolic (mm Hg) 2018-07-30 16:56:00 Tico rial Momo Diastolic (mm Hg) 2018-07-30 16:56:00 Mem orial Momo Heart Rate 2018-07-30 16:56:00 [facility] [place] Systolic (mm Hg) 2018-07-28 19:50:00 Tico rial [place] Diastolic (mm Hg) 2018-07-28 19:50:00 Mem orial [place] Respitory Rate 2018-07-28 19:50:00 [facility] al Momo Temperature Oral (F) 2018-07-28 19:50:00 98 F [facility]o Respitory Rate 2018-07-28 19:12:00 [facility] [place] Systolic (mm Hg) 2018-07-28 19:12:00 Tico rial [place] Diastolic (mm Hg) 2018-07-28 19:12:00 Mem orial [place] Systolic (mm Hg) 2018-07-28 18:58:00 Tico rial Momo Diastolic (mm Hg) 2018-07-28 18:58:00 Mem orial [place] Respitory Rate 2018-07-28 18:58:00 [facility] [place] Heart Rate 2018-07-28 18:58:00 [facility] [place] Weight 2018-07-28 17:47:00 [facility] Momo Temperature Oral (F) 2018-07-28 17:47:00 98.7 F [facility] [place] Heart Rate 2018-07-28 17:47:00 [facility] Momo Systolic (mm Hg) 2018-07-28 15:19:00 Tico rial Momo Diastolic (mm Hg) 2018-07-28 15:19:00 Mem orial [place] Heart Rate 2018-07-28 15:19:00 [facility] Momo Systolic (mm Hg) 2018-07-23 16:28:00 Tico rial [place] Diastolic (mm Hg) 2018-07-23 16:28:00 Mem orial [place] Heart Rate 2018-07-23 16:28:00 [facility] Momo Heart Rate 2018-07-16 16:29:00 [facility] Mom[facility] Systolic (mm Hg) 2018-07-16 16:29:00 Tico rial Momo Diastolic (mm Hg) 2018-07-16 16:29:00 Mem orial [place] Systolic (mm Hg) 2018 17:51:00 Tico rial Momo Diastolic (mm Hg) 2018 17:51:00 Mem orial Momo Heart Rate 2018 17:51:00 [facility] Momo Systolic (mm Hg) 2018-07-07 17:55:00 Tico rial [place] Diastolic (mm Hg) 2018-07-07 17:55:00 Mem orial [place] Heart Rate 2018-07-07 17:55:00 [facility] Momo Heart Rate 2018-06-16 16:31:00 [facility] Momo Systolic (mm Hg) 2018-06-16 16:31:00 Tico rial Momo Diastolic (mm Hg) 2018-06-16 16:31:00 Mem orial Momo Systolic (mm Hg) 2018-06-11 16:04:00 Tico rial [place] Diastolic (mm Hg) 2018-06-11 16:04:00 Mem orial [place] Heart Rate 2018-06-11 16:04:00 [facility] Momo Heart Rate 2018-06-04 17:34:00 [facility] Momo Systolic (mm Hg) 2018-06-04 17:34:00 Tico rial [place] Diastolic (mm Hg) 2018-06-04 17:34:00 Mem orial Momo Weight 2018-04-14 14:24:00 [facility] Momo BMI Calculated 2018-04-14 14:24:00 Mem[facility] al [place] Height 2018-04-14 14:24:00 167.64 cm [facility] Heart Rate 2018-04-14 14:24:00 [facility] [place] Temperature Oral (F) 2018-04-14 14:24:00 98.3 F [facility] [place] Systolic (mm Hg) 2018-04-14 14:24:00 Tico rial Momo Diastolic (mm Hg) 2018-04-14 14:24:00 Mem orial [place] BMI Calculated 2018-03-02 13:49:00 [facility] al Momo Weight 2018-03-02 13:49:00 [facility] Momo Height 2018-03-02 13:49:00 177.8 cm [facility]o Temperature Oral (F) 2018-03-02 11:50:00 98 F [facility] [place] Systolic (mm Hg) 2018-03-02 11:50:00 Tico rial [place] Diastolic (mm Hg) 2018-03-02 11:50:00 Mem orial [place] Respitory Rate 2018-03-02 11:50:00 [facility] [place] Height 2018-02-25 19:39:00 167.64 cm [facility] [place] Weight 2018-02-25 19:39:00 [facility] [place] BMI Calculated 2018-02-25 19:39:00 Mem[facility] al Momo Systolic (mm Hg) 2018-02-25 19:39:00 Tico rial Momo Diastolic (mm Hg) 2018-02-25 19:39:00 Mem orial [place] Heart Rate 2018-02-25 19:39:00 [facility] Momo Temperature Oral (F) 2018-02-25 19:39:00 97.7 F [facility] [place] Systolic (mm Hg) 2018-02-24 23:15:00 Tico rial Momo Diastolic (mm Hg) 2018-02-24 23:15:00 Mem orial Momo Systolic (mm Hg) 2018-02-24 23:00:00 Tico rial [place] Diastolic (mm Hg) 2018-02-24 23:00:00 Mem orial [place] Systolic (mm Hg) 2018-02-24 22:30:00 Tico rial [place] Diastolic (mm Hg) 2018-02-24 22:30:00 Mem orial Momo Respitory Rate 2018-02-24 22:27:00 [facility] [place] Heart Rate 2018-02-24 22:27:00 [facility] Momo Respitory Rate 2018-02-24 22:00:00 [facility] [place] Heart Rate 2018-02-24 22:00:00 [facility] Respitory Rate 2018-02-24 21:45:00 [facility] [place] Heart Rate 2018-02-24 21:45:00 [facility] [place] BMI Calculated 2018-02-24 21:28:00 [facility] [place] Height 2018-02-24 21:28:00 170.18 cm [facility] [place] Weight 2018-02-24 21:28:00 [facility] [place] Temperature Oral (F) 2018-02-24 21:28:00 98.4 F [facility] [place] Heart Rate 2018-01-27 22:41:00 [facility] Momo Temperature Oral (F) 2018-01-27 22:41:00 99 F [facility] [place] Respitory Rate 2018-01-27 22:41:00 [facility] [place] Systolic (mm Hg) 2018-01-27 22:41:00 Tico rial [place] Diastolic (mm Hg) 2018-01-27 22:41:00 Mem orial [place] Systolic (mm Hg) 2018-01-27 19:47:00 Tico rial Momo Diastolic (mm Hg) 2018-01-27 19:47:00 Mem orial [facility]o Heart Rate 2018-01-27 19:47:00 [facility] [place] BMI Calculated 2018-01-27 19:47:00 [facility] Momo Weight 2018-01-27 19:47:00 [facility] Respitory Rate 2018-01-27 19:47:00 [facility] [place] Temperature Oral (F) 2018-01-27 19:47:00 97.7 F [facility] [place] Height 2018-01-27 19:47:00 170.18 cm [facility] [place] Weight 2018-01-27 13:45:00 [facility] [place] BMI Calculated 2018-01-27 13:45:00 [facility] Mom[facility] Heart Rate 2018-01-27 13:45:00 [facility] Respitory Rate 2018-01-27 13:45:00 [facility] [place] Height 2018-01-27 13:45:00 168 cm [facility] Systolic (mm Hg) 2018-01-27 13:45:00 Tico rial Momo Diastolic (mm Hg) 2018-01-27 13:45:00 Mem orial [place] Systolic (mm Hg) 2018-01-01 17:45:00 Tico rial [place] Diastolic (mm Hg) 2018-01-01 17:45:00 Mem orial Momo Respitory Rate 2018-01-01 17:45:00 [facility] [place] Respitory Rate 2018-01-01 17:30:00 [facility] [place] Systolic (mm Hg) 2018-01-01 17:30:00 Tico rial Momo Diastolic (mm Hg) 2018-01-01 17:30:00 Mem orial [place] Respitory Rate 2018-01-01 17:15:00 [facility] [place] Systolic (mm Hg) 2018-01-01 17:15:00 Tico rial [place] Diastolic (mm Hg) 2018-01-01 17:15:00 Mem orial [place] Temperature Oral (F) 2018-01-01 12:03:00 97.8 F [facility] BMI Calculated 2017-12-31 20:21:00 [facility] [place] Weight 2017-12-31 20:21:00 [facility] Height 2017-12-31 20:21:00 170.18 cm [facility] Systolic (mm Hg) 2017-11-13 22:30:00 Tico rial Momo Diastolic (mm Hg) 2017-11-13 22:30:00 Mem orial [facility] Respitory Rate 2017-11-13 22:30:00 [facility] [place] Systolic (mm Hg) 2017-11-13 22:15:00 Tico rial Momo Diastolic (mm Hg) 2017-11-13 22:15:00 Mem orial [place] Respitory Rate 2017-11-13 22:15:00 [facility] [place] Respitory Rate 2017-11-13 22:00:00 [facility] [place] Systolic (mm Hg) 2017-11-13 22:00:00 Tico rial Momo Diastolic (mm Hg) 2017-11-13 22:00:00 Mem o[facility] [place] Temperature Oral (F) 2017-11-13 21:00:00 97.7 F [facility] Temperature Oral (F) 2017-11-13 17:30:00 98.2 F [facility] BMI Calculated 2017-11-13 15:57:00 [facility] [place] Height 2017-11-13 15:57:00 170.18 cm [facility] Weight 2017-11-13 15:57:00 [facility] [place] Systolic (mm Hg) 2017-09-01 15:19:00 Tico rial Momo Diastolic (mm Hg) 2017-09-01 15:19:00 Mem o[facility] [place] BMI Calculated 2017-09-01 15:19:00 [facility] [place] Weight 2017-09-01 15:19:00 [facility] [place] Heart Rate 2017-09-01 15:19:00 [facility] [place] Temperature Oral (F) 2017-09-01 15:19:00 97.7 F [facility] [place] Height 2017-09-01 15:19:00 170.18 cm [facility] Systolic (mm Hg) 2017-06-26 18:00:00 Tico rial Momo Diastolic (mm Hg) 2017-06-26 18:00:00 Mem o[facility] Respitory Rate 2017-06-26 18:00:00 [facility] [place] Systolic (mm Hg) 2017-06-26 17:45:00 Tico rial Momo Diastolic (mm Hg) 2017-06-26 17:45:00 Mem o[facility] Respitory Rate 2017-06-26 17:45:00 [facility] Respitory Rate 2017-06-26 17:30:00 [facility] Systolic (mm Hg) 2017-06-26 17:30:00 Tico rial [place] Diastolic (mm Hg) 2017-06-26 17:30:00 Mem o[facility] Momo BMI Calculated 2017-06-26 12:26:00 [facility] [place] Weight 2017-06-26 12:26:00 [facility] [place] Height 2017-06-26 12:26:00 170.18 cm [facility] Temperature Oral (F) 2017-06-26 11:45:00 98.3 F [facility] Systolic (mm Hg) 2017-05-15 19:15:00 Tico rial Momo Diastolic (mm Hg) 2017-05-15 19:15:00 [facility] [place] Respitory Rate 2017-05-15 19:15:00 [facility] [place] Respitory Rate 2017-05-15 19:00:00 [facility] Systolic (mm Hg) 2017-05-15 19:00:00 Tico rial [place] Diastolic (mm Hg) 2017-05-15 19:00:00 [facility] [place] Respitory Rate 2017-05-15 18:45:00 [facility] [place] Systolic (mm Hg) 2017-05-15 18:45:00 Tico rial Momo Diastolic (mm Hg) 2017-05-15 18:45:00 [facility] o[facility] [place] Respitory Rate 2017-05-09 23:08:00 [facility] Temperature Oral (F) 2017-05-09 23:08:00 98.2 F [facility] [place] Weight 2017-05-09 23:08:00 [facility] [place] BMI Calculated 2017-05-09 23:08:00 [facility] Heart Rate 2017-05-09 23:08:00 [facility] [place] Systolic (mm Hg) 2017-05-09 23:08:00 Tico rial [place] Diastolic (mm Hg) 2017-05-09 23:08:00 [facility] [place] Height 2017-05-09 23:08:00 170.18 cm [facility] [place] Weight 2017-05-08 18:44:00 [facility] BMI Calculated 2017-05-08 18:44:00 [facility] Height 2017-05-08 18:44:00 170.18 cm [facility] [place] Systolic (mm Hg) 2017-04-11 00:41:00 Tico rial Momo Diastolic (mm Hg) 2017-04-11 00:41:00 [facility] Heart Rate 2017-04-11 00:41:00 [facility] [place] Respitory Rate 2017-04-11 00:41:00 [facility] Temperature Oral (F) 2017-04-11 00:41:00 98.0 F [facility] Temperature Oral (F) 2017-04-10 20:33:00 98.2 F [facility] Heart Rate 2017-04-10 20:33:00 [facility] Systolic (mm Hg) 2017-04-10 20:33:00 Tico rial [place] Diastolic (mm Hg) 2017-04-10 20:33:00 [facility] o[facility] Systolic (mm Hg) 2017-04-10 19:33:00 Tico rial [place] Diastolic (mm Hg) 2017-04-10 19:33:00 Mem o[facility] Heart Rate 2017-04-10 19:33:00 [facility] Respitory Rate 2017-04-10 17:03:00 [facility] [place] Temperature Oral (F) 2017-04-10 17:03:00 97.8 F [facility] Respitory Rate 2017-04-10 08:00:00 [facility] [place] BMI Calculated 2017-04-10 01:28:00 [facility] Height 2017-04-10 01:28:00 170.18 cm [facility] Weight 2017-04-10 01:28:00 [facility] Weight 2017-04-09 22:17:00 [facility] Heart Rate 2017-03-18 16:54:00 [facility] Systolic (mm Hg) 2017-03-18 16:54:00 Tico rial Momo Diastolic (mm Hg) 2017-03-18 16:54:00 [facility] [place] Heart Rate 2017-03-18 16:25:00 [facility] [place] Respitory Rate 2017-03-18 16:25:00 [facility] Systolic (mm Hg) 2017-03-18 16:25:00 Tico rial [place] Diastolic (mm Hg) 2017-03-18 16:25:00 [facility] [place] Temperature Oral (F) 2017-03-18 16:25:00 97.9 F [facility] Temperature Oral (F) 2017-03-18 12:41:00 98.1 F [facility] [place] Heart Rate 2017-03-18 12:41:00 [facility] [place] Respitory Rate 2017-03-18 12:41:00 [facility] Diastolic (mm Hg) 2017-03-18 12:41:00 Mem o[facility] [place] Systolic (mm Hg) 2017-03-18 12:41:00 Tico rial Momo Temperature Oral (F) 2017-03-18 05:07:00 98.7 F [facility] Respitory Rate 2017-03-17 17:00:00 [facility] [place] Weight 2017-03-11 03:29:00 [facility] [place] BMI Calculated 2017-03-11 03:29:00 [facility] [place] Height 2017-03-11 03:29:00 170.18 cm [facility] [place] Weight 2017-03-10 21:27:00 [facility] [place] Respitory Rate 2013-11-26 23:08:00 [facility] [place] Diastolic (mm Hg) 2013-11-26 21:50:00 Mem orial [place] Systolic (mm Hg) 2013-11-26 21:50:00 Tico rial Momo Respitory Rate 2013-11-26 21:50:00 [facility] [place] Respitory Rate 2013-11-26 21:02:00 [facility] [place] Systolic (mm Hg) 2013-11-26 20:00:00 Tico rial [place] Diastolic (mm Hg) 2013-11-26 20:00:00 Mem orial Momo Systolic (mm Hg) 2013-11-26 18:00:00 Tico rial Momo Diastolic (mm Hg) 2013-11-26 18:00:00 Mem orial [place] Temperature Oral (F) 2013-11-26 18:00:00 98 F [facility] [place] Temperature Oral (F) 2013-11-26 10:30:00 98.7 F [facility] [place] Temperature Oral (F) 2013-11-26 08:00:00 98.5 F [facility] [place] Weight 2013-11-22 21:37:00 [facility] Heart Rate 2013-11-22 20:55:00 [facility] [place] Heart Rate 2013-11-22 20:24:00 [facility] [place] Heart Rate 2013-11-22 20:04:00 [facility] [place] Height 2013-11-22 18:42:00 170.18 cm [facility] Weight 2013-11-22 18:42:00 [facility] BMI Calculated 2013-11-22 18:42:00 Shannon maxwell Momo Weight 2012-11-03 13:39:00 [facility] [place] Height 2012-11-03 13:39:00 170.18 cm [facility] [place] Height 2012-01-08 15:12:00 170.18 cm [facility] [place] Weight 2012-01-08 15:12:00 [facility] Momo Procedures Procedure Date / Time Performing Clinician Source Performed US DUPLEX VENOUS ARM 2022-12-02 18:57:00 Roberto Pratt [facility] LEFT - BY VASCULAR LAB Medical [facility] [place] COMP. METABOLIC PANEL 2022-12-02 18:34:00 Roberto Pratt [facility] ([id number]) [facility] CBC WITH DIFF 2022-12-02 18:34:00 Roberto Pratt Maxie o f [facility] PROTHROMBIN TIME / INR 2022-12-02 18:34:00 Roberto Pratt [facility] ACTIVATED PARTIAL 2022-12-02 18:34:00 Roberto Pratt [facility] THRMPLAS [facility] Colonoscopy 2018-09-24 06:00:00 [facility] Arteriovenous fistula 2017-05-15 05:00:00 Shannon Rivers operation Insertion of tunneled 2016-09-29 00:00:00 Shannon Rivers central venous catheter using fluoroscopic guidance<sup>1</sup> Encounters Start End Encounter Admission Attending Care Care Encounter Source Date/Time Date/Time Type Type Clinicians Facility Department ID 2023-07-04 OD LUISITO JORGE [id number] Me moria 08:36:19 00 l Momo 2023-03-26 OD LUISITO JORGE [id number] Me moria 13:26:25 00 l Momo 2022-12-11 Outpatient [facility] [id number] [place] 07:29:56 [id number] [facility] 2022-12-06 Outpatient [facility] [id number] [place] 09:33:25 [id number] [facility] 2022-12-04 Inpatient STEFANY COTA [facility] [id number] MHHH 13:30:55 2022-12-03 Outpatient [facility] [id number] [place] 14:02:55 [id number] [facility] 2022-12-05 2022-12-14 Inpatient CAREY [facility] [id number] Memoria 16:53:00 17:17:[address] 2022-12-05 2022-12-14 Inpatient [facility] [id number] Memoria 16:53:00 17:17:[address] 2022-12-05 2022-12-14 Inpatient U QUANG, [facility]SE MED [id number] 10:53:00 12:17:00 [facility] 2022-12-05 2022-12-14 Outpatient Quang, MHSE MHSE [id number] 10:53:00 12:17:00 Pranavkumar 65 Dineshkumar 2022-12-11 2022-12-11 Outpatient YAZ, [facility] [id number] [place] 13:30:00 13:30:00 [facility] 2022-12-09 2022-12-09 [facility] [id number] [place] 14:30:00 14:30:00 [facility] 2022-12-06 2022-12-06 Outpatient DONAL, [facility] [id number] [place] 09:30:00 09:30:00 [facility] 2022-12-05 2022-12-05 Outpatient Salud SE SE [id number] 10:53:00 10:53:00 En-Szu 65 2022-12-03 2022-12-03 Outpatient DONAL, [facility] [id number] [place] 11:30:00 11:30:00 [facility] 2022-12-02 2022-12-02 Emergency Terence [facility] [id number] Univers 11:37:00 16:41:00 Roberto VALENTINO 350.1.13.10 eugenie Navas 4.2.7.2.686 [facility] [id number] [facility] [address] 2022-12-02 2022-12-02 Emergency X TERENCE [facility] ERT [id number] Univers 11:37:00 16:41:00 ROBERTO [facility] 2022-04-19 2022-04-19 Outpatient R [facility] [id number] Univers 09:00:00 09:00:00 [place] ity o f [facility] 2022-04-10 2022-04-10 Telephone [facility] [id number] [id number] Univers 00:00:00 00:00:00 [place] Bojorquez MULTISPEC 350.1.13.10 ity of IALTY 4.2.7.2.686 [facility] [id number] [address] [facility] 2022-04-10 2022-04-10 Telephone [facility] 1.2.840.114 [id number] Univers 00:00:00 00:00:00 [place] Bojorquez MULTISPEC 350.1.13.10 ity of IALTY 4.2.7.2.686 [facility] [id number] [address] [facility] 2022-04-08 2022-04-08 Committee Gema-Rebel [facility] 1.2.840.114 [id number] Univers 00:00:00 00:00:00 Review Elidia alegre MULTISPEC 350.1.13.10 ity of IALTY 4.2.7.2.686 [facility] [id number] [address] [facility] 2022-03-27 2022-03-27 Community Product Specialist Vtc-Lab [facility] 1.2.840.114 [id number] Univers 13:00:00 13:15:00 Visit [place] Chang MULTISPEC 350.1.13 .10 ity of IALTY 4.2.7.2.686 [facility] [id number] [address] [facility] 2022-03-27 2022-03-27 [facility]patient [facility] [id number] Univers 13:00:00 13:00:00 [place] ity o f [facility] 2022-03-27 2022-03-27 Outpatient R [facility] [id number] Univers 13:00:00 13:00:00 CONRAD ity o f [facility] 2022-03-27 2022-03-27 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, Transplant Social [facility] 1.2.840.114 [id number] [facility] 11:00:00 11:58:21 Management [place] Chang MULTISPEC 350.1 .13.10 ity of IALTY 4.2.7.2.686 [facility] [id number] [address] [facility] 2022-03-27 2022-03-27 Office Owen Stone [facility] 1.2.840.114 [id number] Univers 10:00:00 11:58:04 Visit [place] Chang MULTISPEC 350.1.13 .10 ity of IALTY 4.2.7.2.686 [facility] [id number] [facility] [address] [facility] 2022-03-27 2022-03-27 Nurse Renal, Transplant Class [facility] 1. 2.840.114 [id number] Univers 08:30:00 09:15:00 Visit [place] Chang MULTISPEC 350.1.13 .10 ity of IALTY 4.2.7.2.686 [facility] [id number] [address] [facility] 2019-08-19 2019-08-20 Emergency [facility] [id number] Memoria 18:32:29 19:53:00 mauricio Baird l [place] 2019-08-19 2019-08-20 [facility] [id number] Memoria 18:32:29 19:53:00 mauricio Baird l [place] 2019-08-19 2019-08-20 Outpatient CARMINA CannonSL MHSL [id number] 12:32:29 13:53:00 Jeromy Roper 2019-08-19 2019-08-19 Emergency E MHFB MHFB [id number] MHFB 12:32:00 12:32:00 2019-08-11 2019-08-11 Emergency E [facility] [id number] [place] 07:59:00 09:20:00 Medica l [place] 2019-06-22 2019-07-22 OP nullFlavo Transplant [id number] Memoria 12:20:00 04:59:00 Transplant r [address] 2019-06-22 2019-07-22 OP nullFlavo Transplant [id number] Memoria 12:20:00 04:59:00 Transplant r [address] 2019-06-22 2019-07-21 Outpatient De [facility] [id number] 07:20:00 23:59:00 Clara Clarke 2019-06-22 2019-06-22 Outpatient [facility] [id number] [facility] 07:20:00 07:20:00 2019-05-26 2019-05-26 Ambulatory nullFlavo [facility]MG [id number] Memoria 20:00:00 20:00:00 Pre-Reg r Internal 08 [facility] 2019-05-26 2019-05-26 Ambulatory nullFlavo [facility]MG [id number] Memoria 20:00:00 20:00:00 Pre-Reg r Internal 08 [facility] 2019-05-26 2019-05-26 Outpatient MHIE MHIE [id number] Memoria 15:00:00 15:00:00 gayle [place] 2019-05-26 2019-05-26 [id number] 15:00:00 15:00:00 Romi Oliveira 2018-12-29 2019-01-28 Tots nullFlavo TIRR [id number] Memoria 16:57:00 04:59:00 Therapy r [facility] 03 gayle Barr 2018-12-29 2019-01-28 Tots nullFlavo TIRR [id number] Memoria 16:57:00 04:59:00 Therapy r [facility] 03 gayle Barr 2018-12-29 2019-01-27 Outpatient CARMINA RitchieTIRR MHTIRR [id number] 11:57:00 23:59:00 Romi Oliveira 2018-11-26 2018-12-26 Tots nullFlavo TIRR [id number] Memoria 16:01:00 04:59:00 Therapy r Otto 03 gayle Barr 2018-11-26 2018-12-26 Tots nullFlavo TIRR [id number] Memoria 16:01:00 04:59:00 Therapy r [facility] 03 gayle Barr 2018-11-26 2018-12-25 Outpatient CARMINA RitchieTIRR MHTIRR [id number] 10:01:00 23:59:00 Romi Oliveira 2018-09-24 2018-09-24 Bedded nullFlavo [facility] [id number] Memoria 11:23:00 14:45:00 Outpatient mauricio Barr 20 l [place] 2018-09-24 2018-09-24 Bedded nullFlavo [facility] [id number] Memoria 11:23:00 14:45:00 Outpatient r Momo 20 l [place] 2018-09-24 2018-09-24 [place], [place] [id number] 05:23:00 08:45:00 Shunoliver Densonn 20 2018-08-26 2018-08-27 [place] [id number] Memoria 17:30:00 05:59:59 r Internal 07 l [facility] 2018-08-26 2018-08-27 [place] [id number] Memoria 17:30:00 05:59:59 r Internal 07 l [facility] 2018-08-25 2018-08-27 Phone nullFlavo MG [id number] Memoria 20:42:00 05:59:59 Message r Gastroenter 02 l [facility] 2018-08-25 2018-08-27 Phone nullFlavo MG [id number] Memoria 20:42:00 05:59:59 Message r Gastroenter 02 l [facility] 2018-08-26 2018-08-26 Outpatient MHMG MG [id number] 11:30:00 23:59:59 07 2018-08-25 2018-08-26 [facility] [id number] 14:42:00 23:59:59 02 2018-08-26 2018-08-26 Outpatient LUISITO GREWALIE [id number] Memoria 11:30:00 11:30:00 07 gayle Barr 2018-08-25 2018-08-26 [place] [id number] Memoria 20:00:00 05:59:59 r Internal 06 l Annabelle Arthur 2018-08-25 2018-08-26 [place] [id number] Memoria 20:00:00 05:59:59 r Internal 06 gayle Arthur 2018-08-25 2018-08-25 [facility] [id number] 14:00:00 23:59:59 Romi Andrez Oliveira 2018-08-25 2018-08-25 Outpatient CARMINAIE CARMINAIE [id number] Memoria 14:00:00 14:00:00 06 gayle Momo 2018-07-23 2018-08-22 Tots nullFlavo TIRR [id number] Memoria 15:08:00 05:59:00 Therapy r [facility] 02 gayle Grossmanann 2018-07-23 2018-08-22 Tots nullFlavo TIRR [id number] Memoria 15:08:00 05:59:00 Therapy r [facility] 02 gayle Barr Momo 2018-07-23 2018-08-21 Outpatient Bolshanna, MHTIRR MHTIRR [id number] 10:08:00 23:59:00 Stephanie 02 2018-07-28 2018-07-28 Emergency nullFlavo [facility] [id number] Memoria 17:36:00 19:50:00 r Momo 19 l [place] 2018-07-28 2018-07-28 Emergency nullFlavo [facility] [id number] Memoria 17:36:00 19:50:00 r Momo 19 l [place] 2018-07-28 2018-07-28 Outpatient Carolee, MHSL SL [id number] 12:36:00 14:50:00 Valeri Meg Kiah 2018-06-18 2018-07-18 Tots nullFlavo TIRR [id number] Memoria 17:56:00 04:59:00 Therapy r [facility] 01 gayle Barr 2018-06-18 2018-07-18 Tots nullFlavo TIRR [id number] Memoria 17:56:00 04:59:00 Therapy r [facility] gayle Barr 2018-06-18 2018-07-17 Outpatient De MHTIRR MHTIRR [id number] 12:56:00 23:59:00 Golovine, Sada Uriarte 2018-05-19 2018-06-18 Tots nullFlavo TIRR [id number] Memoria 13:49:00 04:59:00 Therapy r [facility] 00 gayle Barr 2018-05-19 2018-06-18 Tots nullFlavo TIRR [id number] Memoria 13:49:00 04:59:00 Therapy r [facility] 00 gayle Barr 2018-05-19 2018-06-17 Outpatient De MHTIRR MHTIRR [id number] 08:49:00 23:59:00 Golovine, Sada Kalani 2018-04-14 2018-04-15 Outpatient nullFlavo [facility] Family 5 [id number] Memoria 15:00:00 04:59:59 r Medicine 05 l Arthurtracie Jorge nico 2018-04-14 2018-04-15 Outpatient nullFlavo [facility] Family 5 [id number] Memoria 15:00:00 04:59:59 r Medicine 05 l Arthurtracie Jorge n 2018-04-14 2018-04-14 Outpatient Stevenson, MHMG MHMG [id number] 10:00:00 23:59:59 Shira 05 2018-04-14 2018-04-14 Outpatient MHIE MHIE [id number] Memoria 10:00:00 10:00:00 05 gayle Barr 2018-02-24 2018-03-26 Tots nullFlavo TIRR [id number] Memoria 13:00:00 04:59:00 Therapy r [facility] gayle Barr 2018-02-24 2018-03-26 Tots nullFlavo TIRR [id number] Memoria 13:00:00 04:59:00 Therapy r [facility] gayle Barr 2018-02-24 2018-03-25 Outpatient Bolshanna, MHTIRR MHTIRR [id number] 08:00:00 23:59:00 Stephanie 01 2018-03-03 2018-03-04 Outpatient Elizabeth BARFIELD, [facility] TELE [id number] [facility] 15:47:00 12:01:[facility] 2018-03-02 Day nullFlavo [facility] [id number] Memoria 11:21:00 14:40:00 Surgery r Momo 16 l [facility] 2018-03-02 2018-03-02 Day nullFlavo [facility] [id number] Memoria 11:21:00 14:40:00 Surgery r Momo 16 l [facility] 2018-03-02 2018-03-02 Outpatient Juan Jose [facility] [id number] 06:21:00 09:40:00 Janak Kovacs 2018-02-25 2018-02-27 Phone nullFlavo MHMG [id number] Memoria 14:08:00 04:59:59 Message r Internal 01 [facility] 2018-02-25 2018-02-27 Phone nullFlavo MHMG [id number] Memoria 14:08:00 04:59:59 Message r Internal 01 [facility] 2018-02-25 2018-02-26 Outpatient MHMG MHMG [id number] 09:08:00 23:59:59 2018-02-25 2018-02-26 Outpatient nullFlavo MHMG [id number] Memoria 19:30:00 04:59:59 r Internal 04 [facility] 2018-02-25 2018-02-26 Outpatient nullFlavo MHMG [id number] Memoria 19:30:00 04:59:59 r Internal 04 [facility] 2018-01-27 2018-02-26 OP nullFlavo [facility] [id number] Memoria 13:44:00 04:59:00 Transplant r Momo 00 l Clinic - Transplant Herm [facility] 2018-01-27 2018-02-26 OP nullFlavo [facility] [id number] Memoria 13:44:00 04:59:00 Transplant r [place] 00 l Clinic - Transplant Herm [facility] 2018-02-25 2018-02-25 Outpatient Graham, MHMG MHMG [id number] 14:30:00 23:59:59 Shira 04 2018-01-27 2018-02-25 Outpatient De [facility] [id number] 08:44:00 23:59:00 Kavin Clarke 2018-02-25 2018-02-25 Outpatient CAREY LUISITO [id number] Memoria 14:30:00 14:30:00 04 gayle Barr 2018-02-24 2018-02-24 Emergency nullFlavo [facility] [id number] Memoria 21:16:00 23:51:00 r Momo 17 l [place] 2018-02-24 2018-02-24 Emergency nullFlavo [facility] [id number] Memoria 21:16:00 23:51:00 r Momo 17 l [place] 2018-02-24 2018-02-24 Outpatient Aniceto [facility] [id number] 16:16:00 18:51:00 Armond Miller 2018-01-27 2018-01-27 Emergency nullFlavo [facility] [id number] Memoria 19:45:00 22:45:00 mauricio Barr 14 [facility] 2018-01-27 2018-01-27 Emergency nullFlavo [facility] [id number] Memoria 19:45:00 22:45:00 mauricio Barr 14 [facility] 2018-01-27 2018-01-27 [facility] [id number] 14:45:00 17:45:00 , Malorie 14 2018-01-27 2018-01-27 [facility] [id number] 14:45:00 17:45:00 , Malorie 14 2018-01-01 2018-01-01 Day nullFlavo [facility] [id number] Memoria 11:13:00 18:10:00 Surgery mauriico Barr 11 l [facility] 2018-01-01 2018-01-01 Day nullFlavo [facility] [id number] Memoria 11:13:00 18:10:00 Surgery r Momo 11 l [facility] 2018-01-01 2018-01-01 Outpatient Juan Jose [facility] [id number] 06:13:00 13:10:00 Janak Kovacs 2017-11-13 2017-11-13 Observatio nullFlavo [facility] [id number] Memoria 19:18:00 22:45:00 nico Barr 10 l [facility] 2017-11-13 2017-11-13 Observatio nullFlavo [facility] [id number] Memoria 19:18:00 22:45:00 n mauricio Barr 10 l [facility] 2017-11-13 2017-11-13 Outpatient Juan Jose [facility] [id number] 13:18:00 16:45:00 Janak Kovacs 2017-09-01 2017-09-02 [place] [id number] Memoria 15:15:00 05:59:59 r Internal 03 [facility] 2017-09-01 2017-09-02 [place] [id number] Memoria 15:15:00 05:59:59 r Internal 03 [facility] 2017-09-01 2017-09-01 Outpatient Stevenson, MG MG [id number] 09:15:00 23:59:59 Shira 03 2017-09-01 2017-09-01 Outpatient MHIE [facility] [id number] Memoria 09:15:00 09:15:00 03 gayle Barr 2017-06-26 2017-06-26 Day nullFlavo [facility] [id number] Memoria 10:30:00 18:20:00 Surgery r Momo 08 l [facility] 2017-06-26 2017-06-26 Day nullFlavo [facility] [id number] Memoria 10:30:00 18:20:00 Surgery r [place] 08 l [facility] 2017-06-26 2017-06-26 Outpatient Juan Jose [facility] [id number] 05:30:00 13:20:00 Janak Kovacs 2017-05-15 2017-05-15 Day nullFlavo [facility] [id number] Memoria 11:00:00 19:20:00 Surgery r [place] 06 l [facility] 2017-05-15 2017-05-15 Day nullFlavo [facility] [id number] Memoria 11:00:00 19:20:00 Surgery r [place] 06 l [facility] 2017-05-15 2017-05-15 Outpatient Juan Jose [facility] [id number] 06:00:00 14:20:00 Janak Kovacs 2017-05-09 2017-05-10 Emergency nullFlavo [facility] [id number] Memoria 23:04:00 00:00:00 r [place] 07 l [place] 2017-05-09 2017-05-10 Emergency nullFlavo [facility] [id number] Memoria 23:04:00 00:00:00 r [place] 07 l [place] 2017-05-09 2017-05-09 Outpatient Eduin Tsai [facility] [id number] 18:04:00 19:00:00 Oli 2017-05-07 2017-05-07 Outpatient MHIE MHIE [id number] Memoria 10:30:00 10:30:00 02 l [place] 2017-05-07 2017-05-07 Outpatient MHIE MHIE [id number] Memoria 10:30:00 10:30:00 02 l Momo 2017-04-25 2017-04-25 Outpatient MHIE MHIE [id number] Memoria 14:45:00 14:45:00 01 l Momo 2017-04-25 2017-04-25 Outpatient MHIE MHIE [id number] Memoria 14:45:00 14:45:00 01 l Momo 2017-04-09 2017-04-11 Bedded nullFlavo [facility] [id number] Memoria 22:15:00 01:18:00 Outpatient r Momo 05 l [place] 2017-04-09 2017-04-11 Bedded nullFlavo [facility] [id number] Memoria 22:15:00 01:18:00 Outpatient r Momo 05 l [place] 2017-04-09 2017-04-10 Outpatient Chi SL S [id number] 17:15:00 20:18:00 Pancho 05 2017-03-10 2017-03-18 Inpatient nullFlavo [facility] [id number] Memoria 21:21:00 18:26:00 r [place] 04 l [place] 2017-03-10 2017-03-18 Inpatient nullFlavo [facility] [id number] Memoria 21:21:00 18:26:00 r Momo 04 l [place] 2017-03-10 2017-03-18 Outpatient Haim SL S [id number] 16:21:00 13:26:00 Mauricio 04 2017-03-07 2017-03-07 Outpatient IE CARMINAIE [id number] Memoria 10:30:00 10:30:00 00 gayle [place] 2017-03-07 2017-03-07 Outpatient MHIE CARMINAIE [id number] Memoria 10:30:00 10:30:00 00 gayle [place] 2013-11-22 2013-11-27 Inpatient nullFlavo [facility] [id number] Memoria 18:37:00 02:10:00 r [place] _[id number] [address] 2013-11-22 2013-11-27 Inpatient nullFlavo [facility] [id number] Memoria 18:37:00 02:10:00 r [place] _[id number] [address] 2013-11-22 2013-11-26 Outpatient Gopathi, 2.16.840. [id number]. [id number] 12:37:00 20:10:00 Judy [id number] 02 Arreola [id number] 4224-02-24 2013-11-22 Inpatient nullFlavo [place] [id number] Memoria 13:45:00 13:45:00 r [facility] 02 [facility] 2013-11-22 2013-11-22 Inpatient nullFlavo [facility] 37 [id number] Memoria 13:45:00 13:45:00 [place] 02 [facility] 2012-11-03 2012-11-03 Emergency nullFlavo [facility] 37 [id number] Memoria 07:28:00 09:57:00 r [facility] 01 [facility] 2012-11-03 2012-11-03 Emergency nullFlavo [facility] 37 [id number] Memoria 07:28:00 09:57:00 [place] 01 [facility] 2012-01-08 2012-01-08 Emergency nullFlavo [facility] 37 [id number] Memoria 09:38:00 17:44:00 [place] 00 [facility] 2012-01-08 2012-01-08 Emergency nullFlavo [facility] 37 [id number] Memoria 09:38:00 17:44:00 [place] 00 [facility] Results Test Description Test Time Test Comments Results Result Comments Source CHEMISTRY 2022-12-14 09:01:00 Test Item Value Reference Range Interpretation Comme nts Glucose Lvl (test code = Glucose Lvl) 86 70-99 [facility]46[facility]71-86 09:01:00 Test Item Value Reference Range Interpretation Comments BUN (test code = BUN) 24 7-22 [facility] CenterYtrzvihWKWKOMEFV2967-34-48 09:01:00 Test Item Value Reference Range Interpretation Comments Creatinine Lvl (test code = Creatinine 6.44 0.50-1.40 Lvl) [facility] Center[facility]koezwjQDHHWSTXT0231-22-35 09:01:00 Test Item Value Reference Range Interpretation Comments Sodium Lvl (test code = Sodium Lvl) 137 135-145 [facility] CenterEhqoegtGVSHKMNUY4636-00-06 09:01:00 Test Item Value Reference Range Interpretation Comments Potassium Lvl (test code = Potassium 3.8 3.5-5.1 Lvl) [facility] CenterWzvcphwVUJXADVWV8555-36-28 09:01:00 Test Item Value Reference Range Interpretation Comments Chloride Lvl (test code = Chloride Lvl) 104 95-109 [facility] CenterEdvjhhdTUVFKEFFW7047-80-30 09:01:00 Test Item Value Reference Range Interpretation Comments CO2 (test code = CO2) 27 24-32 [facility] CenterEhrcnfbPYTOEHLEY0678-43-87 09:01:00 Test Item Value Reference Range Interpretation Comments AGAP (test code = AGAP) 9.8 10.0-20.0 [facility] CenterHopvnwoKOSJOUDIB1018-76-49 09:01:00 Test Item Value Reference Range Interpretation Comments Calcium Lvl (test code = Calcium Lvl) 8.3 8.5-10.5 [facility] CenterAllpnkjYWZZUBKUB6813-92-35 09:01:00 Test Item Value Reference Range Interpretation Comments B/C Ratio (test code = B/C Ratio) 4 1 6-25 [facility] CenterJgjxnmgLZJRKJWNE4330-44-43 09:01:00 Test Item Value Reference Range Interpretation Comments Total Protein (test code = Total 5.8 6.4-8.4 Protein) [facility] [id number] 09:01:00 Test Item Value Reference Range Interpretation Comments Albumin Lvl (test code = Albumin Lvl) 2.9 3.5-5.0 [facility] [id number] 09:01:00 Test Item Value Reference Range Interpretation Comments Globulin (test code = Globulin) 2.9 2.7-4.2 [facility] [id number] 09:01:00 Test Item Value Reference Range Interpretation Comments A/G Ratio (test code = A/G Ratio) 1.0 1 0.7-1.6 [id number] 09:01:00 Test Item Value Reference Range Interpretation Comments ALT (test code = ALT) no gt See_Comment [Auto mated message] The system which ge nerated this result transmit cruz reference range : <=65. The reference range was not used to interpr et this result as gee l/abnormal. [facility] HospitalXtijlnaZQVZOXBUY8995-41-70 09:01:00 Test Item Value Reference Range Interpretation Comments AST (test code = AST) 17 See_Comment [Auto mated message] The system which ge nerated this result transmit cruz reference range : <=37. The reference range was not used to interpr et this result as gee l/abnormal. [facility] HospitalJuwlrvfHARYIRYVM0467-33-28 09:01:00 Test Item Value Reference Range Interpretation Comments Alk Phos (test code = Alk Phos) 79 39-136 [facility] HospitalBwvaptyAHBMJXHDM6464-19-33 09:01:00 Test Item Value Reference Range Interpretation Comments Bili Total (test code = Bili Total) 0.6 0.2-1.3 [facility] HospitalGithevpXRFATZAVL9958-46-31 09:01:00 Test Item Value Reference Range Interpretation Comments eGFR (test code = eGFR) 9 [facility] HospitalMfyqcpgUXNXOZJKED4234-87-65 09:01:00 Test Item Value Reference Range Interpretation Comments WBC (test code = WBC) 6.8 3.7-10.4 [facility] HospitalJoamfauTIGVOCFDVH3356-42-81 09:01:00 Test Item Value Reference Range Interpretation Comments RBC (test code = RBC) 2.72 4.70-6.10 [facility] HospitalZoqmfcaJMVGRCDZSW7970-94-38 09:01:00 Test Item Value Reference Range Interpretation Comments Hgb (test code = Hgb) 8.5 14.0-18.0 [facility] HospitalUmwuwpvRFJHFZIOPN0839-16-00 09:01:00 Test Item Value Reference Range Interpretation Comments Hct (test code = Hct) 25.7 42.0-54.0 [facility] RkieameUEFJTTTXYK3176-11-26 09:01:00 Test Item Value Reference Range Interpretation Comments MCV (test code = MCV) 94.4 80.0-94.0 [facility]jvhtmlQXMTWANVBT3011-80-30 09:01:00 Test Item Value Reference Range Interpretation Comments MCH (test code = MCH) 31.1 pg 27.0-31.0 [facility]JzdndlzXIPGHDEUWO8825-58-82 09:01:00 Test Item Value Reference Range Interpretation Comments MCHC (test code = MCHC) 32.9 32.0-36.0 [facility]KtnwhbfUSBPNIYNGU0272-73-23 09:01:00 Test Item Value Reference Range Interpretation Comments RDW (test code = RDW) 17.4 11.5-14.5 [place] 967413-03-18 09:01:00 Test Item Value Reference Range Interpretation Comments Platelet (test code = Platelet) 180 133-450 [facility]FhsnnxjUWVRUYDNHS7392-75-79 09:01:00 Test Item Value Reference Range Interpretation Comments MPV (test code = MPV) 7.3 7.4-10.4 [facility]EvhydboRLPOEPOMUA2336-92-03 09:01:00 Test Item Value Reference Range Interpretation Comments Segs (test code = Segs) 63.6 45.0-75.0 [place] 967413-03-18 09:01:00 Test Item Value Reference Range Interpretation Comments Lymphocytes (test code = Lymphocytes) 18.7 20.0-40.0 [facility] TexasImbztocZCEZNXGBUG1923-67-17 09:01:00 Test Item Value Reference Range Interpretation Comments Monocytes (test code = Monocytes) 10.6 2.0-12.0 [facility] TexasBizrpalPBKVMQTJCQ5790-72-09 09:01:00 Test Item Value Reference Range Interpretation Comments Eosinophils (test code = 6.1 See_Comment [A utomated message] The Eosinophils) system which ge nerated this result tra nsmitted reference range : <=4.0. The reference r jillian was not used to int erpret this result as normal/abnormal . [place] 967413-03-18 09:01:00 Test Item Value Reference Range Interpretation Comments Basophils (test code = 1.0 See_Comment [Aut omated message] The Basophils) system which ge nerated this result tra nsmitted reference range : <=1.0. The reference r jillian was not used to int erpret this result as normal/abnormal . [place] 967413-03-18 09:01:00 Test Item Value Reference Range Interpretation Comments Neutrophils # (test code = Neutrophils 4.3 1.5-8.1 #) [place] 967413-03-18 09:01:00 Test Item Value Reference Range Interpretation Comments Lymphocytes # (test code = Lymphocytes 1.3 1.0-5.5 #) [place] 967413-03-18 09:01:00 Test Item Value Reference Range Interpretation Comments Monocytes # (test code 0.7 See_Comment [Aut omated message] The = Monocytes #) system which generated this result tra nsmitted reference range : <=0.8. The reference r jillian was not used to int erpret this result as normal/abnormal . [place] [address]-03-18 09:01:00 Test Item Value Reference Range Interpretation Comments Eosinophils # (test code 0.4 See_Comment [A utomated message] The = Eosinophils #) system whic h generated this result tra nsmitted reference range : <=0.5. The reference r jillian was not used to int erpret this result as normal/abnormal . [facility]BicwhkoPJDBJTHDHH4663-55-29 09:01:00 Test Item Value Reference Range Interpretation Comments Basophils # (test code 0.1 See_Comment [Aut omated message] The = Basophils #) system which generated this result tra nsmitted reference range : <=0.2. The reference r jillian was not used to int erpret this result as normal/abnormal . [facility]HgsrgetGMBNDIPKI3114-32-31 09:01:00 Test Item Value Reference Range Interpretation Comments Glucose Lvl (test code = Glucose Lvl) 86 70-99 [place] 274853-03-18 09:01:00 Test Item Value Reference Range Interpretation Comments BUN (test code = BUN) 24 7-22 [place] 274853-03-18 09:01:00 Test Item Value Reference Range Interpretation Comments Creatinine Lvl (test code = Creatinine 6.44 0.50-1.40 Lvl) [place] 274853-03-18 09:01:00 Test Item Value Reference Range Interpretation Comments Sodium Lvl (test code = Sodium Lvl) 137 135-145 [place] 274853-03-18 09:01:00 Test Item Value Reference Range Interpretation Comments Potassium Lvl (test code = Potassium 3.8 3.5-5.1 Lvl) [facility] CenterBzmvvbhFWLHCUCKR0262-90-58 09:01:00 Test Item Value Reference Range Interpretation Comments Chloride Lvl (test code = Chloride Lvl) 104 95-109 [place] 274853-03-18 09:01:00 Test Item Value Reference Range Interpretation Comments CO2 (test code = CO2) 27 24-32 [place] 274853-03-18 09:01:00 Test Item Value Reference Range Interpretation Comments AGAP (test code = AGAP) 9.8 10.0-20.0 [place] [address]-03-18 09:01:00 Test Item Value Reference Range Interpretation Comments Calcium Lvl (test code = Calcium Lvl) 8.3 8.5-10.5 [place] 274853-03-18 09:01:00 Test Item Value Reference Range Interpretation Comments B/C Ratio (test code = B/C Ratio) 4 1 6-25 [place] 274853-03-18 09:01:00 Test Item Value Reference Range Interpretation Comments Total Protein (test code = Total 5.8 6.4-8.4 Protein) [facility] CenterGmebeakJLZNQPAGL5875-46-74 09:01:00 Test Item Value Reference Range Interpretation Comments Albumin Lvl (test code = Albumin Lvl) 2.9 3.5-5.0 [facility] CenterOrygftrXPYNEYNFW5913-01-02 09:01:00 Test Item Value Reference Range Interpretation Comments Globulin (test code = Globulin) 2.9 2.7-4.2 [place] 274853-03-18 09:01:00 Test Item Value Reference Range Interpretation Comments A/G Ratio (test code = A/G Ratio) 1.0 1 0.7-1.6 [place] [address]-03-18 09:01:00 Test Item Value Reference Range Interpretation Comments ALT (test code = ALT) no gt See_Comment [Auto mated message] The system which ge nerated this result transmit cruz reference range : <=65. The reference range was not used to interpr et this result as gee l/abnormal. [facility] CenterOezyhnvMAXZDOURW5246-41-41 09:01:00 Test Item Value Reference Range Interpretation Comments AST (test code = AST) 17 See_Comment [Auto mated message] The system which ge nerated this result transmit cruz reference range : <=37. The reference range was not used to interpr et this result as gee l/abnormal. [facility] CenterBrkbeblDZQQIVHHV6810-91-31 09:01:00 Test Item Value Reference Range Interpretation Comments Alk Phos (test code = Alk Phos) 79 39-136 [facility] CenterYblhinvWNVJPWAOI6626-92-37 09:01:00 Test Item Value Reference Range Interpretation Comments Bili Total (test code = Bili Total) 0.6 0.2-1.3 [facility] CenterKojltrnYIWYUCEQX5277-74-21 09:01:00 Test Item Value Reference Range Interpretation Comments eGFR (test code = eGFR) 9 [facility]NqjfzufUGXEMTGDGV1209-49-60 09:01:00 Test Item Value Reference Range Interpretation Comments WBC (test code = WBC) 6.8 3.7-10.4 [facility]AojbjfpUNZQDDVKAA5553-22-53 09:01:00 Test Item Value Reference Range Interpretation Comments RBC (test code = RBC) 2.72 4.70-6.10 [facility] TexasWncmbovAJJQACKPXD0406-53-12 09:01:00 Test Item Value Reference Range Interpretation Comments Hgb (test code = Hgb) 8.5 14.0-18.0 [facility]AzhrsorVHVTJMKKMY6526-85-84 09:01:00 Test Item Value Reference Range Interpretation Comments Hct (test code = Hct) 25.7 42.0-54.0 [facility]HqvkxyiNCAJVXYWYG2137-72-05 09:01:00 Test Item Value Reference Range Interpretation Comments MCV (test code = MCV) 94.4 80.0-94.0 [facility]AjrhubeZHONQYLBCA9637-42-61 09:01:00 Test Item Value Reference Range Interpretation Comments MCH (test code = MCH) 31.1 pg 27.0-31.0 [facility]OgxvbdtVTKRASZNLZ0456-15-49 09:01:00 Test Item Value Reference Range Interpretation Comments MCHC (test code = MCHC) 32.9 32.0-36.0 [facility] TexasFgkgzqiMYUONBUGGF2439-09-64 09:01:00 Test Item Value Reference Range Interpretation Comments RDW (test code = RDW) 17.4 11.5-14.5 [place] 967413-03-18 09:01:00 Test Item Value Reference Range Interpretation Comments Platelet (test code = Platelet) 180 133-450 [place] 967413-03-18 09:01:00 Test Item Value Reference Range Interpretation Comments MPV (test code = MPV) 7.3 7.4-10.4 [place] [address]-03-18 09:01:00 Test Item Value Reference Range Interpretation Comments Segs (test code = Segs) 63.6 45.0-75.0 [place] 967413-03-18 09:01:00 Test Item Value Reference Range Interpretation Comments Lymphocytes (test code = Lymphocytes) 18.7 20.0-40.0 [place] [address]-03-18 09:01:00 Test Item Value Reference Range Interpretation Comments Monocytes (test code = Monocytes) 10.6 2.0-12.0 [place] 967413-03-18 09:01:00 Test Item Value Reference Range Interpretation Comments Eosinophils (test code = 6.1 See_Comment [A utomated message] The Eosinophils) system which ge nerated this result tra nsmitted reference range : <=4.0. The reference r jillian was not used to int erpret this result as normal/abnormal . [facility]HefjsotFTCTZUSEFY1839-81-42 09:01:00 Test Item Value Reference Range Interpretation Comments Basophils (test code = 1.0 See_Comment [Aut omated message] The Basophils) system which ge nerated this result tra nsmitted reference range : <=1.0. The reference r jillian was not used to int erpret this result as normal/abnormal . [place] 967413-03-18 09:01:00 Test Item Value Reference Range Interpretation Comments Neutrophils # (test code = Neutrophils 4.3 1.5-8.1 #) [place] 967413-03-18 09:01:00 Test Item Value Reference Range Interpretation Comments Lymphocytes # (test code = Lymphocytes 1.3 1.0-5.5 #) [place] [address]-03-18 09:01:00 Test Item Value Reference Range Interpretation Comments Monocytes # (test code 0.7 See_Comment [Aut omated message] The = Monocytes #) system which generated this result tra nsmitted reference range : <=0.8. The reference r jillian was not used to int erpret this result as normal/abnormal . [facility] TexasAmajaesDBAFXTWCUF0472-28-35 09:01:00 Test Item Value Reference Range Interpretation Comments Eosinophils # (test code 0.4 See_Comment [A utomated message] The = Eosinophils #) system whic h generated this result tra nsmitted reference range : <=0.5. The reference r jillian was not used to int erpret this result as normal/abnormal . [facility] TexasHzzikzsAFCNUHSSUP9706-98-23 09:01:00 Test Item Value Reference Range Interpretation Comments Basophils # (test code 0.1 See_Comment [Aut omated message] The = Basophils #) system which generated this result tra nsmitted reference range : <=0.2. The reference r ijllian was not used to int erpret this result as normal/abnormal . [facility] CenterSvdhxoePOCNCSULU3500-76-79 09:01:00 Test Item Value Reference Range Interpretation Comments Glucose Lvl (test code = Glucose Lvl) [facility] CenterLzcptoxUPUVGEPMT1813-95-09 09:01:00 Test Item Value Reference Range Interpretation Comments BUN (test code = BUN) 04-19 [facility] CenterHkbwmrqVYLLGGYYM7075-38-99 09:01:00 Test Item Value Reference Range Interpretation Comments Creatinine Lvl (test code = Creatinine 6.44 0.50-1.40 Lvl) [facility] CenterMtiedjkZRGDCUJHW0854-50-17 09:01:00 Test Item Value Reference Range Interpretation Comments Sodium Lvl (test code = Sodium Lvl) 137 135-145 [facility] CenterLfwlqljSLSOIBIVW0234-15-20 09:01:00 Test Item Value Reference Range Interpretation Comments Potassium Lvl (test code = Potassium 3.8 3.5-5.1 Lvl) [facility] CenterYekzgkaFEAWGFLBB4261-04-30 09:01:00 Test Item Value Reference Range Interpretation Comments Glucose Lvl (test code = Glucose Lvl) 86 70-99 [facility] CenterEealgroQSASVLZRL8155-59-12 09:01:00 Test Item Value Reference Range Interpretation Comments BUN (test code = BUN) 04-19 [facility] CenterWbcowvuDIHVTXAMF9790-38-38 09:01:00 Test Item Value Reference Range Interpretation Comments Creatinine Lvl (test code = Creatinine 6.44 0.50-1.40 Lvl) [place] [address]-03-18 09:01:00 Test Item Value Reference Range Interpretation Comments Sodium Lvl (test code = Sodium Lvl) 137 135-145 [facility] CenterFxbokavAYTCVSTJN1807-33-39 09:01:00 Test Item Value Reference Range Interpretation Comments Potassium Lvl (test code = Potassium 3.8 3.5-5.1 Lvl) [facility] CenterQxmxjzwILKRMWTSD1932-97-08 09:01:00 Test Item Value Reference Range Interpretation Comments Chloride Lvl (test code = Chloride Lvl) 104 95-109 [facility] CenterWooteduIGRISEFKT4234-92-85 09:01:00 Test Item Value Reference Range Interpretation Comments CO2 (test code = CO2) 27 24-32 [facility] CenterDriifynBBYROOKHG9104-52-60 09:01:00 Test Item Value Reference Range Interpretation Comments AGAP (test code = AGAP) 9.8 10.0-20.0 [facility] CenterPfanfujEQKSXLWIY2263-93-96 09:01:00 Test Item Value Reference Range Interpretation Comments Calcium Lvl (test code = Calcium Lvl) 8.3 8.5-10.5 [facility] CenterWagpyirCNLQIDYTP7879-99-60 09:01:00 Test Item Value Reference Range Interpretation Comments B/C Ratio (test code = B/C Ratio) 4 1 6-25 [facility] CenterHqiesjnKIFQCNRXE3056-34-45 09:01:00 Test Item Value Reference Range Interpretation Comments Chloride Lvl (test code = Chloride Lvl) 104 95-109 [facility] CenterTkqjrmgLDLEPXSYZ4793-56-11 09:01:00 Test Item Value Reference Range Interpretation Comments Total Protein (test code = Total 5.8 6.4-8.4 Protein) [facility] CenterZqdxcshFSWENFTVH6075-75-19 09:01:00 Test Item Value Reference Range Interpretation Comments Albumin Lvl (test code = Albumin Lvl) 2.9 3.5-5.0 [facility] CenterQcmxkbpLCQDCUDLO8721-95-12 09:01:00 Test Item Value Reference Range Interpretation Comments Globulin (test code = Globulin) 2.9 2.7-4.2 [facility] CenterQpueybbWIRFFRWQR3402-52-00 09:01:00 Test Item Value Reference Range Interpretation Comments A/G Ratio (test code = A/G Ratio) 1.0 1 0.7-1.6 [facility] CenterYdrfrosYMSDCIMTS7513-98-05 09:01:00 Test Item Value Reference Range Interpretation Comments ALT (test code = ALT) no gt See_Comment [Auto mated message] The system which ge nerated this result transmit cruz reference range : <=65. The reference range was not used to interpr et this result as gee l/abnormal. [facility] HjrokadVSGPFKENR9736-33-92 09:01:00 Test Item Value Reference Range Interpretation Comments AST (test code = AST) 17 See_Comment [Auto mated message] The system which ge nerated this result transmit rcuz reference range : <=37. The reference range was not used to interpr et this result as gee l/abnormal. [facility] DgusomiFGJJDNRDF4802-37-32 09:01:00 Test Item Value Reference Range Interpretation Comments Alk Phos (test code = Alk Phos) 79 39-136 [facility] BbappnzEYUOAPPPD6082-12-26 09:01:00 Test Item Value Reference Range Interpretation Comments Bili Total (test code = Bili Total) 0.6 0.2-1.3 [facility] FdqzdiyEIAZSTLRX6700-07-60 09:01:00 Test Item Value Reference Range Interpretation Comments eGFR (test code = eGFR) 9 [facility] NecjeshCTTMBOEJHJ7255-35-31 09:01:00 Test Item Value Reference Range Interpretation Comments WBC (test code = WBC) 6.8 3.7-10.4 [facility] PrllddcYEVDHPDJX7966-35-59 09:01:00 Test Item Value Reference Range Interpretation Comments CO2 (test code = CO2) 27 24-32 [facility] JnhhbqyEMJFJOFAWV8114-47-66 09:01:00 Test Item Value Reference Range Interpretation Comments RBC (test code = RBC) 2.72 4.70-6.10 [facility] FekefinOBXNKDRJLJ6713-41-20 09:01:00 Test Item Value Reference Range Interpretation Comments Hgb (test code = Hgb) 8.5 14.0-18.0 [facility] CzsyzbhGYWFBDLHVF0656-09-28 09:01:00 Test Item Value Reference Range Interpretation Comments Hct (test code = Hct) 25.7 42.0-54.0 [facility] WdqlmrwJPLFUDWXKW5366-26-60 09:01:00 Test Item Value Reference Range Interpretation Comments MCV (test code = MCV) 94.4 80.0-94.0 [facility] LujehbwPVRWOGFPOX6697-56-02 09:01:00 Test Item Value Reference Range Interpretation Comments MCH (test code = MCH) 31.1 pg 27.0-31.0 [facility]TxvcqklPEXTFIOCPC4094-30-21 09:01:00 Test Item Value Reference Range Interpretation Comments MCHC (test code = MCHC) 32.9 32.0-36.0 [place] 967413-03-18 09:01:00 Test Item Value Reference Range Interpretation Comments RDW (test code = RDW) 17.4 11.5-14.5 [place] 967413-03-18 09:01:00 Test Item Value Reference Range Interpretation Comments Platelet (test code = Platelet) 180 133-450 [facility] TexasPokxbohSSUTQAPUQE8268-21-78 09:01:00 Test Item Value Reference Range Interpretation Comments MPV (test code = MPV) 7.3 7.4-10.4 [place] 967413-03-18 09:01:00 Test Item Value Reference Range Interpretation Comments Segs (test code = Segs) 63.6 45.0-75.0 [facility] CenterShijmolHBKDTQESJ0989-94-02 09:01:00 Test Item Value Reference Range Interpretation Comments AGAP (test code = AGAP) 9.8 10.0-20.0 [facility]BdwklxlFFNLURDARP9828-00-51 09:01:00 Test Item Value Reference Range Interpretation Comments Lymphocytes (test code = Lymphocytes) 18.7 20.0-40.0 [facility] TexasZszjivrUETTERWQXJ1129-56-67 09:01:00 Test Item Value Reference Range Interpretation Comments Monocytes (test code = Monocytes) 10.6 2.0-12.0 [place] 967413-03-18 09:01:00 Test Item Value Reference Range Interpretation Comments Eosinophils (test code = 6.1 See_Comment [A utomated message] The Eosinophils) system which ge nerated this result tra nsmitted reference range : <=4.0. The reference r jillian was not used to int erpret this result as normal/abnormal . [facility] TexasFbhixfwMSJOFGDRHX0874-03-89 09:01:00 Test Item Value Reference Range Interpretation Comments Basophils (test code = 1.0 See_Comment [Aut omated message] The Basophils) system which ge nerated this result tra nsmitted reference range : <=1.0. The reference r jillian was not used to int erpret this result as normal/abnormal . [place] 967413-03-18 09:01:00 Test Item Value Reference Range Interpretation Comments Neutrophils # (test code = Neutrophils 4.3 1.5-8.1 #) [place] 967413-03-18 09:01:00 Test Item Value Reference Range Interpretation Comments Lymphocytes # (test code = Lymphocytes 1.3 1.0-5.5 #) [place] [address]-03-18 09:01:00 Test Item Value Reference Range Interpretation Comments Monocytes # (test code 0.7 See_Comment [Aut omated message] The = Monocytes #) system which generated this result tra nsmitted reference range : <=0.8. The reference r jillian was not used to int erpret this result as normal/abnormal . [place] [address]-03-18 09:01:00 Test Item Value Reference Range Interpretation Comments Eosinophils # (test code 0.4 See_Comment [A utomated message] The = Eosinophils #) system whic h generated this result tra nsmitted reference range : <=0.5. The reference r jillian was not used to int erpret this result as normal/abnormal . [place] [address]-03-18 09:01:00 Test Item Value Reference Range Interpretation Comments Basophils # (test code 0.1 See_Comment [Aut omated message] The = Basophils #) system which generated this result tra nsmitted reference range : <=0.2. The reference r jillian was not used to int erpret this result as normal/abnormal . [place] 274853-03-18 09:01:00 Test Item Value Reference Range Interpretation Comments Calcium Lvl (test code = Calcium Lvl) 8.3 8.5-10.5 [place] [address]-03-18 09:01:00 Test Item Value Reference Range Interpretation Comments B/C Ratio (test code = B/C Ratio) 4 1 6-25 [place] [address]-03-18 09:01:00 Test Item Value Reference Range Interpretation Comments Total Protein (test code = Total 5.8 6.4-8.4 Protein) [place] [address]-03-18 09:01:00 Test Item Value Reference Range Interpretation Comments Albumin Lvl (test code = Albumin Lvl) 2.9 3.5-5.0 [facility] JjordamJATHEUECO1343-66-01 09:01:00 Test Item Value Reference Range Interpretation Comments Globulin (test code = Globulin) 2.9 2.7-4.2 [facility] HospitalWghqznfBHEVTXPBV3700-51-60 09:01:00 Test Item Value Reference Range Interpretation Comments A/G Ratio (test code = A/G Ratio) 1.0 1 0.7-1.6 [facility] HospitalGixdyhfVCKCTVHAK2597-49-49 09:01:00 Test Item Value Reference Range Interpretation Comments ALT (test code = ALT) no gt See_Comment [Auto mated message] The system which ge nerated this result transmit cruz reference range : <=65. The reference range was not used to interpr et this result as gee l/abnormal. [facility] HospitalXryuuwqLCVIAZEUP3636-71-09 09:01:00 Test Item Value Reference Range Interpretation Comments AST (test code = AST) 17 See_Comment [Auto mated message] The system which ge nerated this result transmit cruz reference range : <=37. The reference range was not used to interpr et this result as gee l/abnormal. [facility] VgqdenkDOUTWGTLE8249-36-51 09:01:00 Test Item Value Reference Range Interpretation Comments Alk Phos (test code = Alk Phos) 79 39-136 [facility] GfqjadaRCHRIRCZS3761-10-50 09:01:00 Test Item Value Reference Range Interpretation Comments Bili Total (test code = Bili Total) 0.6 0.2-1.3 [facility] EjbtorxHPBZVFZCP2726-67-09 09:01:00 Test Item Value Reference Range Interpretation Comments eGFR (test code = eGFR) 9 [facility] VnaorylJSXNAIRJUY8102-89-50 09:01:00 Test Item Value Reference Range Interpretation Comments WBC (test code = WBC) 6.8 3.7-10.4 [facility] VsdmkixFEEECKGOKN0797-15-75 09:01:00 Test Item Value Reference Range Interpretation Comments RBC (test code = RBC) 2.72 4.70-6.10 [facility] FduuxnhCWANIYEVCP5171-90-26 09:01:00 Test Item Value Reference Range Interpretation Comments Hgb (test code = Hgb) 8.5 14.0-18.0 [facility] HospitalOutzterNHNYDWQITT1676-66-99 09:01:00 Test Item Value Reference Range Interpretation Comments Hct (test code = Hct) 25.7 42.0-54.0 [place] 967413-03-18 09:01:00 Test Item Value Reference Range Interpretation Comments MCV (test code = MCV) 94.4 80.0-94.0 [place] 967413-03-18 09:01:00 Test Item Value Reference Range Interpretation Comments MCH (test code = MCH) 31.1 pg 27.0-31.0 [place] 967413-03-18 09:01:00 Test Item Value Reference Range Interpretation Comments MCHC (test code = MCHC) 32.9 32.0-36.0 [place] 967413-03-18 09:01:00 Test Item Value Reference Range Interpretation Comments RDW (test code = RDW) 17.4 11.5-14.5 [place] 967413-03-18 09:01:00 Test Item Value Reference Range Interpretation Comments Platelet (test code = Platelet) 180 133-450 [facility]CassoxuXGYREHZFUQ0354-07-28 09:01:00 Test Item Value Reference Range Interpretation Comments MPV (test code = MPV) 7.3 7.4-10.4 [facility] TexasFofgjqiWOARPXCNLY0068-10-58 09:01:00 Test Item Value Reference Range Interpretation Comments Segs (test code = Segs) 63.6 45.0-75.0 [place] 967413-03-18 09:01:00 Test Item Value Reference Range Interpretation Comments Lymphocytes (test code = Lymphocytes) 18.7 20.0-40.0 [place] 967413-03-18 09:01:00 Test Item Value Reference Range Interpretation Comments Monocytes (test code = Monocytes) 10.6 2.0-12.0 [place] [address]-03-18 09:01:00 Test Item Value Reference Range Interpretation Comments Eosinophils (test code = 6.1 See_Comment [A utomated message] The Eosinophils) system which ge nerated this result tra nsmitted reference range : <=4.0. The reference r jillian was not used to int erpret this result as normal/abnormal . [place] 967413-03-18 09:01:00 Test Item Value Reference Range Interpretation Comments Basophils (test code = 1.0 See_Comment [Aut omated message] The Basophils) system which ge nerated this result tra nsmitted reference range : <=1.0. The reference r jillian was not used to int erpret this result as normal/abnormal . [facility]WsimcloWKJEEFIFTP1852-36-46 09:01:00 Test Item Value Reference Range Interpretation Comments Neutrophils # (test code = Neutrophils 4.3 1.5-8.1 #) [facility] TexasIpstqncEXBJFZNMFM3845-86-73 09:01:00 Test Item Value Reference Range Interpretation Comments Lymphocytes # (test code = Lymphocytes 1.3 1.0-5.5 #) [place] [address]-03-18 09:01:00 Test Item Value Reference Range Interpretation Comments Monocytes # (test code 0.7 See_Comment [Aut omated message] The = Monocytes #) system which generated this result tra nsmitted reference range : <=0.8. The reference r jillian was not used to int erpret this result as normal/abnormal . [place] 967413-03-18 09:01:00 Test Item Value Reference Range Interpretation Comments Eosinophils # (test code 0.4 See_Comment [A utomated message] The = Eosinophils #) system whic h generated this result tra nsmitted reference range : <=0.5. The reference r jillian was not used to int erpret this result as normal/abnormal . [facility] TexasWxpbtfxZCKGJCAJGC4780-86-10 09:01:00 Test Item Value Reference Range Interpretation Comments Basophils # (test code 0.1 See_Comment [Aut omated message] The = Basophils #) system which generated this result tra nsmitted reference range : <=0.2. The reference r jillian was not used to int erpret this result as normal/abnormal . [facility]QltdkdhTHGPEBFDP5118-61-66 09:01:00 Test Item Value Reference Range Interpretation Comments Glucose Lvl (test code = Glucose Lvl) 86 70-99 [place] 274853-03-18 09:01:00 Test Item Value Reference Range Interpretation Comments BUN (test code = BUN) 24 7-22 [place] [address]-03-18 09:01:00 Test Item Value Reference Range Interpretation Comments Creatinine Lvl (test code = Creatinine 6.44 0.50-1.40 Lvl) [facility] CenterYuwhrioHFEZSAJLO3635-80-90 09:01:00 Test Item Value Reference Range Interpretation Comments Sodium Lvl (test code = Sodium Lvl) 137 135-145 [facility] CenterRhpylswGGEOIFXDC9949-28-79 09:01:00 Test Item Value Reference Range Interpretation Comments Potassium Lvl (test code = Potassium 3.8 3.5-5.1 Lvl) [facility] CenterXsyfyixDYGCPATHK2094-04-39 09:01:00 Test Item Value Reference Range Interpretation Comments Chloride Lvl (test code = Chloride Lvl) 104 95-109 [facility] CenterGovjyeyBUSFLRGAR1778-93-66 09:01:00 Test Item Value Reference Range Interpretation Comments CO2 (test code = CO2) 27 24-32 [facility] CenterLoyalpaIVTRMDMTE4985-32-15 09:01:00 Test Item Value Reference Range Interpretation Comments AGAP (test code = AGAP) 9.8 10.0-20.0 [facility] CenterJsqojorGNONLSZYG6906-82-60 09:01:00 Test Item Value Reference Range Interpretation Comments Calcium Lvl (test code = Calcium Lvl) 8.3 8.5-10.5 [facility] CenterMtfppbeIMMCCPRMT2918-49-88 09:01:00 Test Item Value Reference Range Interpretation Comments B/C Ratio (test code = B/C Ratio) 4 1 6-25 [facility] CenterAcuppfxBQLMOMYCQ9854-10-77 09:01:00 Test Item Value Reference Range Interpretation Comments Total Protein (test code = Total 5.8 6.4-8.4 Protein) [facility] CenterIsoicjjAUZWRGYZR4692-11-28 09:01:00 Test Item Value Reference Range Interpretation Comments Albumin Lvl (test code = Albumin Lvl) 2.9 3.5-5.0 [facility] CenterKucwppkBCSRGJBYX3133-41-96 09:01:00 Test Item Value Reference Range Interpretation Comments Globulin (test code = Globulin) 2.9 2.7-4.2 [place] 274853-03-18 09:01:00 Test Item Value Reference Range Interpretation Comments A/G Ratio (test code = A/G Ratio) 1.0 1 0.7-1.6 [facility] CenterEyjmrlrBQGXSHLWU3914-04-46 09:01:00 Test Item Value Reference Range Interpretation Comments ALT (test code = ALT) no gt <=65 [facility] CenterUdpskqoFYMOLSQIM3826-09-79 09:01:00 Test Item Value Reference Range Interpretation Comments AST (test code = AST) 17 <=37 [facility] CenterHqfeqzqHTBUFODYZ9058-73-33 09:01:00 Test Item Value Reference Range Interpretation Comments Alk Phos (test code = Alk Phos) 79 39-136 [facility] CenterIyeualbPUEVJYYWE1874-98-69 09:01:00 Test Item Value Reference Range Interpretation Comments Bili Total (test code = Bili Total) 0.6 0.2-1.3 [facility] CenterXegbrvbBIOUTLWQS0780-40-82 09:01:00 Test Item Value Reference Range Interpretation Comments eGFR (test code = eGFR) 9 [facility]NhqkzzvIFSJLWGIQV4500-83-62 09:01:00 Test Item Value Reference Range Interpretation Comments WBC (test code = WBC) 6.8 3.7-10.4 [facility] TexasPmtrjkxLJFOPPRGRD2824-33-58 09:01:00 Test Item Value Reference Range Interpretation Comments RBC (test code = RBC) 2.72 4.70-6.10 [facility] TexasTrvrhzqDWZAEXKOGX7270-06-17 09:01:00 Test Item Value Reference Range Interpretation Comments Hgb (test code = Hgb) 8.5 14.0-18.0 [facility] TexasSruidivEFDZFJOVIA6793-00-02 09:01:00 Test Item Value Reference Range Interpretation Comments Hct (test code = Hct) 25.7 42.0-54.0 [facility]EfnvvfjPMUXVPGQAJ3598-06-58 09:01:00 Test Item Value Reference Range Interpretation Comments MCV (test code = MCV) 94.4 80.0-94.0 [facility] TexasWkbipgiCCFWEXSBTT7162-03-66 09:01:00 Test Item Value Reference Range Interpretation Comments MCH (test code = MCH) 31.1 pg 27.0-31.0 [facility] RegionDugnywiRPMWTNIKVG8397-68-02 09:01:00 Test Item Value Reference Range Interpretation Comments MCHC (test code = MCHC) 32.9 32.0-36.0 [facility] RegionXalarkxZBYCGRJBAK9780-86-68 09:01:00 Test Item Value Reference Range Interpretation Comments RDW (test code = RDW) 17.4 11.5-14.5 [facility] RegionGcebxidQRUXDEQUSR7567-29-80 09:01:00 Test Item Value Reference Range Interpretation Comments Platelet (test code = Platelet) 180 133-450 [place] [address]-03-18 09:01:00 Test Item Value Reference Range Interpretation Comments MPV (test code = MPV) 7.3 7.4-10.4 [place] [address]-03-18 09:01:00 Test Item Value Reference Range Interpretation Comments Segs (test code = Segs) 63.6 45.0-75.0 [place] [address]-03-18 09:01:00 Test Item Value Reference Range Interpretation Comments Lymphocytes (test code = Lymphocytes) 18.7 20.0-40.0 [place] [address]-03-18 09:01:00 Test Item Value Reference Range Interpretation Comments Monocytes (test code = Monocytes) 10.6 2.0-12.0 [place] [address]-03-18 09:01:00 Test Item Value Reference Range Interpretation Comments Eosinophils (test code = Eosinophils) 6.1 <=4.0 [place] [address]-03-18 09:01:00 Test Item Value Reference Range Interpretation Comments Basophils (test code = Basophils) 1.0 <=1.0 [place] [address]-03-18 09:01:00 Test Item Value Reference Range Interpretation Comments Neutrophils # (test code = Neutrophils 4.3 1.5-8.1 #) [place] [address]-03-18 09:01:00 Test Item Value Reference Range Interpretation Comments Lymphocytes # (test code = Lymphocytes 1.3 1.0-5.5 #) [place] [address]-03-18 09:01:00 Test Item Value Reference Range Interpretation Comments Monocytes # (test code = Monocytes #) 0.7 <=0.8 [place] [address]-03-18 09:01:00 Test Item Value Reference Range Interpretation Comments Eosinophils # (test code = Eosinophils 0.4 <=0.5 #) [place] [address]-03-18 09:01:00 Test Item Value Reference Range Interpretation Comments Basophils # (test code = Basophils #) 0.1 <=0.2 [place] [address]-03-18 09:01:00 Test Item Value Reference Range Interpretation Comments Glucose Lvl (test code = Glucose Lvl) 86 70-99 [place] [address]-03-18 09:01:00 Test Item Value Reference Range Interpretation Comments BUN (test code = BUN) 24 7-22 [facility] CenterZgbblpvFFQHXJUWK9344-40-48 09:01:00 Test Item Value Reference Range Interpretation Comments Creatinine Lvl (test code = Creatinine 6.44 0.50-1.40 Lvl) [facility] CenterEixsnhjWJBNJETLY8172-29-05 09:01:00 Test Item Value Reference Range Interpretation Comments Sodium Lvl (test code = Sodium Lvl) 137 135-145 [facility] CenterYnqgnlkQXMPWEYSX8454-63-08 09:01:00 Test Item Value Reference Range Interpretation Comments Potassium Lvl (test code = Potassium 3.8 3.5-5.1 Lvl) [facility] CenterYojyonvXQEAWEJSH1210-35-84 09:01:00 Test Item Value Reference Range Interpretation Comments Chloride Lvl (test code = Chloride Lvl) 104 95-109 [facility] CenterZkkhxfnAXSUAQQQP4792-96-29 09:01:00 Test Item Value Reference Range Interpretation Comments CO2 (test code = CO2) 27 24-32 [facility] CenterYwsfkrrQXBWPUIIP5423-13-73 09:01:00 Test Item Value Reference Range Interpretation Comments AGAP (test code = AGAP) 9.8 10.0-20.0 [facility] CenterUwazlerVNKOORAZY1377-60-32 09:01:00 Test Item Value Reference Range Interpretation Comments Calcium Lvl (test code = Calcium Lvl) 8.3 8.5-10.5 [facility] CenterQyehweqWWFFQKQOH7284-21-54 09:01:00 Test Item Value Reference Range Interpretation Comments B/C Ratio (test code = B/C Ratio) 4 1 6-25 [facility] CenterSveyfvcGNZFTYPRO9783-41-05 09:01:00 Test Item Value Reference Range Interpretation Comments Total Protein (test code = Total 5.8 6.4-8.4 Protein) [facility] CenterQxjmlmkJVPMBSICV3386-02-24 09:01:00 Test Item Value Reference Range Interpretation Comments Albumin Lvl (test code = Albumin Lvl) 2.9 3.5-5.0 [place] 274853-03-18 09:01:00 Test Item Value Reference Range Interpretation Comments Globulin (test code = Globulin) 2.9 2.7-4.2 [place] 274853-03-18 09:01:00 Test Item Value Reference Range Interpretation Comments A/G Ratio (test code = A/G Ratio) 1.0 1 0.7-1.6 [place] 274853-03-18 09:01:00 Test Item Value Reference Range Interpretation Comments ALT (test code = ALT) no gt <=65 [place] 274853-03-18 09:01:00 Test Item Value Reference Range Interpretation Comments AST (test code = AST) 17 <=37 [place] 274853-03-18 09:01:00 Test Item Value Reference Range Interpretation Comments Alk Phos (test code = Alk Phos) 79 39-136 [facility] CenterMcxwhmgNPNKJMGJH1397-61-37 09:01:00 Test Item Value Reference Range Interpretation Comments Bili Total (test code = Bili Total) 0.6 0.2-1.3 [place] 274853-03-18 09:01:00 Test Item Value Reference Range Interpretation Comments eGFR (test code = eGFR) 9 [facility]CqlbvfoVPATUDFMXJ2783-56-57 09:01:00 Test Item Value Reference Range Interpretation Comments WBC (test code = WBC) 6.8 3.7-10.4 [facility]WslmgohJSWMIYMUWL1363-88-70 09:01:00 Test Item Value Reference Range Interpretation Comments RBC (test code = RBC) 2.72 4.70-6.10 [facility] TexasLjrjiniLHLOBTHZKW7287-16-83 09:01:00 Test Item Value Reference Range Interpretation Comments Hgb (test code = Hgb) 8.5 14.0-18.0 [facility] TexasJhxrminXDKPIYDRCU5719-93-29 09:01:00 Test Item Value Reference Range Interpretation Comments Hct (test code = Hct) 25.7 42.0-54.0 [place] 967413-03-18 09:01:00 Test Item Value Reference Range Interpretation Comments MCV (test code = MCV) 94.4 80.0-94.0 [place] 967413-03-18 09:01:00 Test Item Value Reference Range Interpretation Comments MCH (test code = MCH) 31.1 pg 27.0-31.0 [place] 967413-03-18 09:01:00 Test Item Value Reference Range Interpretation Comments MCHC (test code = MCHC) 32.9 32.0-36.0 [facility] TexasVbwkutcWFHCXQVMIW0260-01-02 09:01:00 Test Item Value Reference Range Interpretation Comments RDW (test code = RDW) 17.4 11.5-14.5 [place] [address]-03-18 09:01:00 Test Item Value Reference Range Interpretation Comments Platelet (test code = Platelet) 180 133-450 [place] 967413-03-18 09:01:00 Test Item Value Reference Range Interpretation Comments MPV (test code = MPV) 7.3 7.4-10.4 [place] [address]-03-18 09:01:00 Test Item Value Reference Range Interpretation Comments Segs (test code = Segs) 63.6 45.0-75.0 [place] [address]-03-18 09:01:00 Test Item Value Reference Range Interpretation Comments Lymphocytes (test code = Lymphocytes) 18.7 20.0-40.0 [place] [address]-03-18 09:01:00 Test Item Value Reference Range Interpretation Comments Monocytes (test code = Monocytes) 10.6 2.0-12.0 [place] [address]-03-18 09:01:00 Test Item Value Reference Range Interpretation Comments Eosinophils (test code = Eosinophils) 6.1 <=4.0 [place] [address]-03-18 09:01:00 Test Item Value Reference Range Interpretation Comments Basophils (test code = Basophils) 1.0 <=1.0 [place] [address]-03-18 09:01:00 Test Item Value Reference Range Interpretation Comments Neutrophils # (test code = Neutrophils 4.3 1.5-8.1 #) [place] [address]-03-18 09:01:00 Test Item Value Reference Range Interpretation Comments Lymphocytes # (test code = Lymphocytes 1.3 1.0-5.5 #) [place] [address]-03-18 09:01:00 Test Item Value Reference Range Interpretation Comments Monocytes # (test code = Monocytes #) 0.7 <=0.8 [place] [address]-03-18 09:01:00 Test Item Value Reference Range Interpretation Comments Eosinophils # (test code = Eosinophils 0.4 <=0.5 #) [place] [address]-03-18 09:01:00 Test Item Value Reference Range Interpretation Comments Basophils # (test code = Basophils #) 0.1 <=0.2 [place] [address]-03-18 01:43:00 Test Item Value Reference Range Interpretation Comments Glucose POC (test code = Glucose POC) 111 [place] [address]-03-18 01:43:00 Test Item Value Reference Range Interpretation Comments Gluc POC Comment 1 (test code Notified RN/MD = Gluc POC Comment 1) [address]03-18 01:43:00 Test Item Value Reference Range Interpretation Comments Glucose POC (test code = Glucose POC) 111 [place] [address]-03-18 01:43:00 Test Item Value Reference Range Interpretation Comments Gluc POC Comment 1 (test code Notified RN/MD = Gluc POC Comment 1) [place] [address]-03-18 01:43:00 Test Item Value Reference Range Interpretation Comments Glucose POC (test code = Glucose POC) 111 [place] [address]-03-18 01:43:00 Test Item Value Reference Range Interpretation Comments Gluc POC Comment 1 (test code Notified RN/MD = Gluc POC Comment 1) [place] [address]-03-18 01:43:00 Test Item Value Reference Range Interpretation Comments Glucose POC (test code = Glucose POC) [address] [place] [address]-03-18 01:43:00 Test Item Value Reference Range Interpretation Comments Gluc POC Comment 1 (test code Notified RN/MD = Gluc POC Comment 1) [address]03-18 01:43:00 Test Item Value Reference Range Interpretation Comments Glucose POC (test code = Glucose POC) [address] [place] [address]-03-18 01:43:00 Test Item Value Reference Range Interpretation Comments Gluc POC Comment 1 (test code Notified RN/MD = Gluc POC Comment 1) [place] [address]-03-18 01:43:00 Test Item Value Reference Range Interpretation Comments Glucose POC (test code = Glucose POC) [facility] [place] [address]-03-18 01:43:00 Test Item Value Reference Range Interpretation Comments Gluc POC Comment 1 (test code Notified RN/MD = Gluc POC Comment 1) [place] 967413-03-17 13:41:00 Test Item Value Reference Range Interpretation Comments RBC Morph (test code = Normal (3/17/23 8:41 RBC Morph) AM) [facility]CleenbhNCSXWDBUDR0351-35-43 13:41:00 Test Item Value Reference Range Interpretation Comments Plt Morph (test code = Normal (12/13/22 8:41 Plt Morph) AM) [facility] TexasQkepzumRPXFYEUIBZ2601-99-02 13:41:00 Test Item Value Reference Range Interpretation Comments RBC Morph (test code = Normal (12/13/22 8:41 RBC Morph) AM) [facility] TexasOgjhnbtEKNFOJVFLY3801-58-16 13:41:00 Test Item Value Reference Range Interpretation Comments Plt Morph (test code = Normal (12/13/22 8:41 Plt Morph) AM) [facility] TexasDoxfbmeGQSCYQKTLB0468-24-22 13:41:00 Test Item Value Reference Range Interpretation Comments RBC Morph (test code = Normal (12/13/22 8:41 RBC Morph) AM) [facility] TexasJeehhixPOWWFVOLOW5598-99-37 13:41:00 Test Item Value Reference Range Interpretation Comments Plt Morph (test code = Normal (12/13/22 8:41 Plt Morph) AM) [facility]JywuwwvAAYJWBIAOT4914-99-45 13:41:00 Test Item Value Reference Range Interpretation Comments RBC Morph (test code = Normal (12/13/22 8:41 RBC Morph) AM) [facility] TexasUaspzjcOMQCVSEMPP1043-80-62 13:41:00 Test Item Value Reference Range Interpretation Comments Plt Morph (test code = Normal (12/13/22 8:41 Plt Morph) AM) [facility] TexasNtyofumGWSXKABFFN0144-46-31 13:41:00 Test Item Value Reference Range Interpretation Comments RBC Morph (test code = Normal (12/13/22 8:41 RBC Morph) AM) [facility] TexasEjlkiwkJNECBFZVGE8873-26-66 13:41:00 Test Item Value Reference Range Interpretation Comments Plt Morph (test code = Normal (12/13/22 8:41 Plt Morph) AM) [facility] TexasLclnfcwYJEUTWUPXD3747-71-39 13:41:00 Test Item Value Reference Range Interpretation Comments RBC Morph (test code = Normal (12/13/22 8:41 RBC Morph) AM) [facility] TexasHwwaecfRWKJIZVCCX6620-81-33 13:41:00 Test Item Value Reference Range Interpretation Comments Plt Morph (test code = Normal (12/13/22 8:41 Plt Morph) AM) [facility] YAOIVWV1307-85-70 02:46:00 Test Item Value Reference Range Interpretation Comments RBC product (test code Product available = RBC product) 2(12/12/22 9:46 PM) [facility] HANRKMY4219-42-80 02:46:00 Test Item Value Reference Range Interpretation Comments RBC product (test code Product available = RBC product) 2(12/12/22 9:46 PM) [facility] RMAWWKJ2316-79-88 02:46:00 Test Item Value Reference Range Interpretation Comments RBC product (test code Product available = RBC product) 2(12/12/22 9:46 PM) [facility] [id number] 02:46:00 Test Item Value Reference Range Interpretation Comments RBC product (test code Product available = RBC product) 2(12/12/22 9:46 PM) [facility] DZZQGVK4097-32-92 02:46:00 Test Item Value Reference Range Interpretation Comments RBC product (test code Product available = RBC product) 2(12/12/22 9:46 PM) [facility] ROLKURF8159-32-19 02:46:00 Test Item Value Reference Range Interpretation Comments RBC product (test code Product available = RBC product) 2(12/12/22 9:46 PM) [facility] [id number] 17:51:00 Test Item Value Reference Range Interpretation Comments ABO/Rh (test code = ABO/Rh) O POS [facility] GCYHQRE9742-05-54 17:51:00 Test Item Value Reference Range Interpretation Comments Antibody Scrn (test Negative (12/12/22 code = Antibody Scrn) 12:51 PM) [facility] HWMSWHD5972-68-13 17:51:00 Test Item Value Reference Range Interpretation Comments ABO/Rh (test code = ABO/Rh) O POS [facility] UNWRAOU1756-67-11 17:51:00 Test Item Value Reference Range Interpretation Comments Antibody Scrn (test Negative (12/12/22 code = Antibody Scrn) 12:51 PM) [facility] [id number] 17:51:00 Test Item Value Reference Range Interpretation Comments ABO/Rh (test code = ABO/Rh) O POS [facility] [id number] 17:51:00 Test Item Value Reference Range Interpretation Comments Antibody Scrn (test Negative (12/12/22 code = Antibody Scrn) 12:51 PM) [facility] [employer] [id number] 17:51:00 Test Item Value Reference Range Interpretation Comments ABO/Rh (test code = ABO/Rh) O POS [facility] [employer] [facility] LLKNUOX0443-08-84 17:51:00 Test Item Value Reference Range Interpretation Comments Antibody Scrn (test Negative (12/12/22 code = Antibody Scrn) 12:51 PM) [facility] [employer] SWKCCDE3497-59-88 17:51:00 Test Item Value Reference Range Interpretation Comments ABO/Rh (test code = ABO/Rh) O POS [facility] [employer] [facility] [id number] 17:51:00 Test Item Value Reference Range Interpretation Comments Antibody Scrn (test Negative (12/12/22 code = Antibody Scrn) 12:51 PM) [facility] [employer] CULUJUK2290-80-13 17:51:00 Test Item Value Reference Range Interpretation Comments ABO/Rh (test code = ABO/Rh) O POS [facility] [employer] [id number] 17:51:00 Test Item Value Reference Range Interpretation Comments Antibody Scrn (test Negative (12/12/22 code = Antibody Scrn) 12:51 PM) [facility]IxizsihRXIBKMJQVB1911-00-46 09:13:00 Test Item Value Reference Range Interpretation Comments Macrocyte (test code = 1+ *ABN*(12/12/22 Macrocyte) 4:13 AM) [facility] HospitalGlrilkcTNNUWBCTWX9092-49-34 09:13:00 Test Item Value Reference Range Interpretation Comments Macrocyte (test code = 1+ *ABN*(12/12/22 Macrocyte) 4:13 AM) [facility] KwwgfvoZJGYIPSGIV3078-07-12 09:13:00 Test Item Value Reference Range Interpretation Comments Macrocyte (test code = 1+ *ABN*(12/12/22 Macrocyte) 4:13 AM) [facility] GkrcsibXMCPESQTWF5184-30-11 09:13:00 Test Item Value Reference Range Interpretation Comments Macrocyte (test code = 1+ *ABN*(12/12/22 Macrocyte) 4:13 AM) [place] 967413-03-16 09:13:00 Test Item Value Reference Range Interpretation Comments Macrocyte (test code = 1+ *ABN*(12/12/22 Macrocyte) 4:13 AM) [place] 967413-03-16 09:13:00 Test Item Value Reference Range Interpretation Comments Macrocyte (test code = 1+ *ABN*(12/12/22 Macrocyte) 4:13 AM) [place] 477493-03-13 09:20:00 Test Item Value Reference Range Interpretation Comments Glucose Lvl (test code = Glucose Lvl) 84 70-99 [place] 477493-03-13 09:20:00 Test Item Value Reference Range Interpretation Comments BUN (test code = BUN) 71 7-22 [place] 477493-03-13 09:20:00 Test Item Value Reference Range Interpretation Comments Creatinine Lvl (test code = Creatinine 10.70 0.50-1.40 Lvl) [place] 477493-03-13 09:20:00 Test Item Value Reference Range Interpretation Comments Sodium Lvl (test code = Sodium Lvl) 133 135-145 [place] 477493-03-13 09:20:00 Test Item Value Reference Range Interpretation Comments Potassium Lvl (test code = Potassium 5.4 3.5-5.1 Lvl) [place] 477493-03-13 09:20:00 Test Item Value Reference Range Interpretation Comments Chloride Lvl (test code = Chloride Lvl) 102 95-109 [place] 477493-03-13 09:20:00 Test Item Value Reference Range Interpretation Comments CO2 (test code = CO2) 23 24-32 [place] 477493-03-13 09:20:00 Test Item Value Reference Range Interpretation Comments Calcium Lvl (test code = Calcium Lvl) 8.2 8.5-10.5 [place] 477493-03-13 09:20:00 Test Item Value Reference Range Interpretation Comments AGAP (test code = AGAP) 13.4 10.0-20.0 [place] 477493-03-13 09:20:00 Test Item Value Reference Range Interpretation Comments eGFR (test code = eGFR) 5 [place] 477493-03-13 09:20:00 Test Item Value Reference Range Interpretation Comments Glucose Lvl (test code = Glucose Lvl) 84 70-99 [place] 477493-03-13 09:20:00 Test Item Value Reference Range Interpretation Comments BUN (test code = BUN) 71 7- [place] 477493-03-13 09:20:00 Test Item Value Reference Range Interpretation Comments Creatinine Lvl (test code = Creatinine 10.70 0.50-1.40 Lvl) [place] 477493-03-13 09:20:00 Test Item Value Reference Range Interpretation Comments Sodium Lvl (test code = Sodium Lvl) 133 135-145 [place] 477493-03-13 09:20:00 Test Item Value Reference Range Interpretation Comments Potassium Lvl (test code = Potassium 5.4 3.5-5.1 Lvl) [place] 477493-03-13 09:20:00 Test Item Value Reference Range Interpretation Comments Chloride Lvl (test code = Chloride Lvl) 102 95-109 [place] 477493-03-13 09:20:00 Test Item Value Reference Range Interpretation Comments CO2 (test code = CO2) 23 24-32 [place] [address]-03-13 09:20:00 Test Item Value Reference Range Interpretation Comments Calcium Lvl (test code = Calcium Lvl) 8.2 8.5-10.5 [place] 477493-03-13 09:20:00 Test Item Value Reference Range Interpretation Comments AGAP (test code = AGAP) 13.4 10.0-20.0 [place] 477493-03-13 09:20:00 Test Item Value Reference Range Interpretation Comments eGFR (test code = eGFR) 5 [place] 477493-03-13 09:20:00 Test Item Value Reference Range Interpretation Comments Glucose Lvl (test code = Glucose Lvl) 84 70-99 [place] 477493-03-13 09:20:00 Test Item Value Reference Range Interpretation Comments BUN (test code = BUN) 71 7-22 [place] 477493-03-13 09:20:00 Test Item Value Reference Range Interpretation Comments Creatinine Lvl (test code = Creatinine 10.70 0.50-1.40 Lvl) [place] 477493-03-13 09:20:00 Test Item Value Reference Range Interpretation Comments Sodium Lvl (test code = Sodium Lvl) 133 135-145 [place] 477493-03-13 09:20:00 Test Item Value Reference Range Interpretation Comments Potassium Lvl (test code = Potassium 5.4 3.5-5.1 Lvl) [place] 477493-03-13 09:20:00 Test Item Value Reference Range Interpretation Comments Chloride Lvl (test code = Chloride Lvl) 102 95-109 [place] 477493-03-13 09:20:00 Test Item Value Reference Range Interpretation Comments CO2 (test code = CO2) 23 24-32 [place] 477493-03-13 09:20:00 Test Item Value Reference Range Interpretation Comments Calcium Lvl (test code = Calcium Lvl) 8.2 8.5-10.5 [place] 477493-03-13 09:20:00 Test Item Value Reference Range Interpretation Comments AGAP (test code = AGAP) 13.4 10.0-20.0 [place] 477493-03-13 09:20:00 Test Item Value Reference Range Interpretation Comments eGFR (test code = eGFR) 5 [place] 477493-03-13 09:20:00 Test Item Value Reference Range Interpretation Comments Glucose Lvl (test code = Glucose Lvl) 84 70-99 [place] 477493-03-13 09:20:00 Test Item Value Reference Range Interpretation Comments BUN (test code = BUN) 71 7-22 [place] 477493-03-13 09:20:00 Test Item Value Reference Range Interpretation Comments Creatinine Lvl (test code = Creatinine 10.70 0.50-1.40 Lvl) [place] 477493-03-13 09:20:00 Test Item Value Reference Range Interpretation Comments Sodium Lvl (test code = Sodium Lvl) 133 135-145 [place] 477493-03-13 09:20:00 Test Item Value Reference Range Interpretation Comments Potassium Lvl (test code = Potassium 5.4 3.5-5.1 Lvl) [place] 477493-03-13 09:20:00 Test Item Value Reference Range Interpretation Comments Chloride Lvl (test code = Chloride Lvl) 102 95-109 [place] 477493-03-13 09:20:00 Test Item Value Reference Range Interpretation Comments CO2 (test code = CO2) 23 24-32 [place] 477493-03-13 09:20:00 Test Item Value Reference Range Interpretation Comments Calcium Lvl (test code = Calcium Lvl) 8.2 8.5-10.5 [place] 477493-03-13 09:20:00 Test Item Value Reference Range Interpretation Comments AGAP (test code = AGAP) 13.4 10.0-20.0 [place] 477493-03-13 09:20:00 Test Item Value Reference Range Interpretation Comments eGFR (test code = eGFR) 5 [facility]2023-03-13 09:20:00 Test Item Value Reference Range Interpretation Comments Glucose Lvl (test code = Glucose Lvl) 84 70-99 [place] 477493-03-13 09:20:00 Test Item Value Reference Range Interpretation Comments BUN (test code = BUN) 71 7-22 [facility]2023-03-13 09:20:00 Test Item Value Reference Range Interpretation Comments Creatinine Lvl (test code = Creatinine 10.70 0.50-1.40 Lvl) [facility]2023-03-13 09:20:00 Test Item Value Reference Range Interpretation Comments Sodium Lvl (test code = Sodium Lvl) 133 135-145 [facility]2023-03-13 09:20:00 Test Item Value Reference Range Interpretation Comments Potassium Lvl (test code = Potassium 5.4 3.5-5.1 Lvl) [facility]2023-03-13 09:20:00 Test Item Value Reference Range Interpretation Comments Chloride Lvl (test code = Chloride Lvl) 102 95-109 [place] 477493-03-13 09:20:00 Test Item Value Reference Range Interpretation Comments CO2 (test code = CO2) 23 24-32 [facility] HospitalMibuzz.tvATRIUM HEALTH [id number] 09:20:00 Test Item Value Reference Range Interpretation Comments Calcium Lvl (test code = Calcium Lvl) 8.2 8.5-10.5 [facility]2023-03-13 09:20:00 Test Item Value Reference Range Interpretation Comments AGAP (test code = AGAP) 13.4 10.0-20.0 [address]03-13 09:20:00 Test Item Value Reference Range Interpretation Comments eGFR (test code = eGFR) 5 [facility] [employer] [id number] 09:20:00 Test Item Value Reference Range Interpretation Comments Glucose Lvl (test code = Glucose Lvl) 84 70-99 [facility] [id number] 09:20:00 Test Item Value Reference Range Interpretation Comments BUN (test code = BUN) 71 7-22 [facility] [id number] 09:20:00 Test Item Value Reference Range Interpretation Comments Creatinine Lvl (test code = Creatinine 10.70 0.50-1.40 Lvl) [facility] [employer] [id number] 09:20:00 Test Item Value Reference Range Interpretation Comments Sodium Lvl (test code = Sodium Lvl) 133 135-145 [facility] [employer] [id number] 09:20:00 Test Item Value Reference Range Interpretation Comments Potassium Lvl (test code = Potassium 5.4 3.5-5.1 Lvl) [facility] [employer] [id number] 09:20:00 Test Item Value Reference Range Interpretation Comments Chloride Lvl (test code = Chloride Lvl) 102 95-109 [facility] [employer] [id number] 09:20:00 Test Item Value Reference Range Interpretation Comments CO2 (test code = CO2) 23 24-32 [facility] [employer] [id number] 09:20:00 Test Item Value Reference Range Interpretation Comments Calcium Lvl (test code = Calcium Lvl) 8.2 8.5-10.5 [facility] [employer] [id number] 09:20:00 Test Item Value Reference Range Interpretation Comments AGAP (test code = AGAP) 13.4 10.0-20.0 [facility] [employer] [id number] 09:20:00 Test Item Value Reference Range Interpretation Comments eGFR (test code = eGFR) 5 [facility] [employer] [id number] 09:29:00 Test Item Value Reference Range Interpretation Comments Antibody Scrn (test Negative (12/08/22 4:29 code = Antibody Scrn) AM) [facility] [employer] [id number] 09:29:00 Test Item Value Reference Range Interpretation Comments ABO/Rh (test code = ABO/Rh) O POS [place] 477493-03-12 09:29:00 Test Item Value Reference Range Interpretation Comments Glucose Lvl (test code = Glucose Lvl) 101 70-99 [place] [address]-03-12 09:29:00 Test Item Value Reference Range Interpretation Comments BUN (test code = BUN) 62 7-22 [place] [address]-03-12 09:29:00 Test Item Value Reference Range Interpretation Comments Creatinine Lvl (test code = Creatinine 9.67 0.50-1.40 Lvl) [place] 477493-03-12 09:29:00 Test Item Value Reference Range Interpretation Comments Sodium Lvl (test code = Sodium Lvl) 133 135-145 [place] [address]-03-12 09:29:00 Test Item Value Reference Range Interpretation Comments Potassium Lvl (test code = Potassium 5.3 3.5-5.1 Lvl) [place] [address]-03-12 09:29:00 Test Item Value Reference Range Interpretation Comments Chloride Lvl (test code = Chloride Lvl) 103 95-109 [place] [address]-03-12 09:29:00 Test Item Value Reference Range Interpretation Comments CO2 (test code = CO2) 24 24-32 [place] [address]-03-12 09:29:00 Test Item Value Reference Range Interpretation Comments AGAP (test code = AGAP) 11.3 10.0-20.0 [place] [address]-03-12 09:29:00 Test Item Value Reference Range Interpretation Comments Calcium Lvl (test code = Calcium Lvl) 8.2 8.5-10.5 [place] [address]-03-12 09:29:00 Test Item Value Reference Range Interpretation Comments eGFR (test code = eGFR) 6 [place] [address]-03-12 09:29:00 Test Item Value Reference Range Interpretation Comments WBC (test code = WBC) 9.0 3.7-10.4 [place] [address]-03-12 09:29:00 Test Item Value Reference Range Interpretation Comments RBC (test code = RBC) 3.27 4.70-6.10 [place] [address]-03-12 09:29:00 Test Item Value Reference Range Interpretation Comments Hgb (test code = Hgb) 11.1 14.0-18.0 [id number] 09:29:00 Test Item Value Reference Range Interpretation Comments Hct (test code = Hct) 33.7 42.0-54.0 [facility] TexasIosgywnLKJEKPCGLV3236-44-45 09:29:00 Test Item Value Reference Range Interpretation Comments MCV (test code = MCV) 102.8 80.0-94.0 [facility] [id number] 09:29:00 Test Item Value Reference Range Interpretation Comments MCH (test code = MCH) 33.8 pg 27.0-31.0 [place] 967413-03-12 09:29:00 Test Item Value Reference Range Interpretation Comments MCHC (test code = MCHC) 32.9 32.0-36.0 [facility] TexasEjrnqbyQHKPULYVCQ3476-86-83 09:29:00 Test Item Value Reference Range Interpretation Comments RDW (test code = RDW) 15.0 11.5-14.5 [place] 967413-03-12 09:29:00 Test Item Value Reference Range Interpretation Comments Platelet (test code = Platelet) 188 133-450 [facility] TexasRxgcjcbITBCUAPQQU8781-49-15 09:29:00 Test Item Value Reference Range Interpretation Comments MPV (test code = MPV) 8.6 7.4-10.4 [place] 967413-03-12 09:29:00 Test Item Value Reference Range Interpretation Comments PT (test code = PT) 14.5 s 12.0-14.7 [place] 967413-03-12 09:29:00 Test Item Value Reference Range Interpretation Comments INR (test code = INR) 1.13 1 0.85-1.17 [place] [address]-03-12 09:29:00 Test Item Value Reference Range Interpretation Comments PTT (test code = PTT) 32.1 s 22.9-35.8 [place] [address]-03-12 09:29:00 Test Item Value Reference Range Interpretation Comments Segs (test code = Segs) 70.6 45.0-75.0 [place] [address]-03-12 09:29:00 Test Item Value Reference Range Interpretation Comments Lymphocytes (test code = Lymphocytes) 18.1 20.0-40.0 [place] [address]-03-12 09:29:00 Test Item Value Reference Range Interpretation Comments Monocytes (test code = Monocytes) 10.7 2.0-12.0 [place] [address]-03-12 09:29:00 Test Item Value Reference Range Interpretation Comments Eosinophils (test code = 0.2 See_Comment [A utomated message] The Eosinophils) system which ge nerated this result tra nsmitted reference range : <=4.0. The reference r jillian was not used to int erpret this result as normal/abnormal . [place] 967413-03-12 09:29:00 Test Item Value Reference Range Interpretation Comments Basophils (test code = 0.4 See_Comment [Aut omated message] The Basophils) system which ge nerated this result tra nsmitted reference range : <=1.0. The reference r jillian was not used to int erpret this result as normal/abnormal . [place] 967413-03-12 09:29:00 Test Item Value Reference Range Interpretation Comments Neutrophils # (test code = Neutrophils 6.4 1.5-8.1 #) [place] 967413-03-12 09:29:00 Test Item Value Reference Range Interpretation Comments Lymphocytes # (test code = Lymphocytes 1.6 1.0-5.5 #) [place] [address]-03-12 09:29:00 Test Item Value Reference Range Interpretation Comments Monocytes # (test code 1.0 See_Comment [Aut omated message] The = Monocytes #) system which generated this result tra nsmitted reference range : <=0.8. The reference r jillian was not used to int erpret this result as normal/abnormal . [place] 967413-03-12 09:29:00 Test Item Value Reference Range Interpretation Comments Macrocyte (test code = 1+ *ABN*(12/08/22 Macrocyte) 4:29 AM) [place] [address]-03-12 09:29:00 Test Item Value Reference Range Interpretation Comments PT (test code = PT) 14.5 s 12.0-14.7 [place] [address]-03-12 09:29:00 Test Item Value Reference Range Interpretation Comments INR (test code = INR) 1.13 1 0.85-1.17 [place] [address]-03-12 09:29:00 Test Item Value Reference Range Interpretation Comments PTT (test code = PTT) 32.1 s 22.9-35.8 [facility] [id number] 09:29:00 Test Item Value Reference Range Interpretation Comments Antibody Scrn (test Negative (12/08/22 4:29 code = Antibody Scrn) AM) [facility] [id number] 09:29:00 Test Item Value Reference Range Interpretation Comments ABO/Rh (test code = ABO/Rh) O POS [facility] [id number] 09:29:00 Test Item Value Reference Range Interpretation Comments Glucose Lvl (test code = Glucose Lvl) 101 70-99 [facility] [id number] 09:29:00 Test Item Value Reference Range Interpretation Comments BUN (test code = BUN) 62 7-22 [facility] [id number] 09:29:00 Test Item Value Reference Range Interpretation Comments Creatinine Lvl (test code = Creatinine 9.67 0.50-1.40 Lvl) [facility] [id number] 09:29:00 Test Item Value Reference Range Interpretation Comments Sodium Lvl (test code = Sodium Lvl) 133 135-145 [facility] [employer] [id number] 09:29:00 Test Item Value Reference Range Interpretation Comments Potassium Lvl (test code = Potassium 5.3 3.5-5.1 Lvl) [facility] [id number] 09:29:00 Test Item Value Reference Range Interpretation Comments Chloride Lvl (test code = Chloride Lvl) 103 95-109 [facility] [id number] 09:29:00 Test Item Value Reference Range Interpretation Comments CO2 (test code = CO2) 24 24-32 [facility] [id number] 09:29:00 Test Item Value Reference Range Interpretation Comments AGAP (test code = AGAP) 11.3 10.0-20.0 [facility] [id number] 09:29:00 Test Item Value Reference Range Interpretation Comments Calcium Lvl (test code = Calcium Lvl) 8.2 8.5-10.5 [facility] [id number] 09:29:00 Test Item Value Reference Range Interpretation Comments eGFR (test code = eGFR) 6 [id number] 09:29:00 Test Item Value Reference Range Interpretation Comments WBC (test code = WBC) 9.0 3.7-10.4 [facility] TexasPgwcinkJTUCCNVOEM9558-06-81 09:29:00 Test Item Value Reference Range Interpretation Comments RBC (test code = RBC) 3.27 4.70-6.10 [facility] TexasLzmtikrUNOKCZLKRV1681-02-92 09:29:00 Test Item Value Reference Range Interpretation Comments Hgb (test code = Hgb) 11.1 14.0-18.0 [facility] [id number] 09:29:00 Test Item Value Reference Range Interpretation Comments Hct (test code = Hct) 33.7 42.0-54.0 [facility] TexasZridckgTRLQWYIHWA8496-88-16 09:29:00 Test Item Value Reference Range Interpretation Comments MCV (test code = MCV) 102.8 80.0-94.0 [facility] TexasOjgwlfcFGNCLJRLMX7267-47-29 09:29:00 Test Item Value Reference Range Interpretation Comments MCH (test code = MCH) 33.8 pg 27.0-31.0 [facility]qq[facility]qmgADRQFPMGSQ1249-32-36 09:29:00 Test Item Value Reference Range Interpretation Comments MCHC (test code = MCHC) 32.9 32.0-36.0 [facility] TexasIkslahsRTXDJKYJDM7793-12-76 09:29:00 Test Item Value Reference Range Interpretation Comments RDW (test code = RDW) 15.0 11.5-14.5 [facility] TexasSfbyfwcRDWRNUBRSY3750-51-78 09:29:00 Test Item Value Reference Range Interpretation Comments Platelet (test code = Platelet) 188 133-450 [facility] TexasWclyyswNLIRHOHDHZ0952-33-53 09:29:00 Test Item Value Reference Range Interpretation Comments MPV (test code = MPV) 8.6 7.4-10.4 [facility] TexasZxcknwtRZZDZSQWUE7927-48-72 09:29:00 Test Item Value Reference Range Interpretation Comments PT (test code = PT) 14.5 s 12.0-14.7 [facility] [id number] 09:29:00 Test Item Value Reference Range Interpretation Comments Antibody Scrn (test Negative (12/08/22 4:29 code = Antibody Scrn) AM) [facility] [id number] 09:29:00 Test Item Value Reference Range Interpretation Comments ABO/Rh (test code = ABO/Rh) O POS [facility] [id number] 09:29:00 Test Item Value Reference Range Interpretation Comments Glucose Lvl (test code = Glucose Lvl) 101 70-99 [facility] [id number] 09:29:00 Test Item Value Reference Range Interpretation Comments BUN (test code = BUN) 62 7-22 [facility] HospitalMibuzz.tvATRIUM HEALTH SOUTHPARKXQBBU8594-29-50 09:29:00 Test Item Value Reference Range Interpretation Comments Creatinine Lvl (test code = Creatinine 9.67 0.50-1.40 Lvl) [facility] CenterLdkwczhJUMAAIIVMR6398-00-89 09:29:00 Test Item Value Reference Range Interpretation Comments INR (test code = INR) 1.13 1 0.85-1.17 [facility] [id number] 09:29:00 Test Item Value Reference Range Interpretation Comments Sodium Lvl (test code = Sodium Lvl) 133 135-145 [facility] [id number] 09:29:00 Test Item Value Reference Range Interpretation Comments Potassium Lvl (test code = Potassium 5.3 3.5-5.1 Lvl) [facility] [id number] 09:29:00 Test Item Value Reference Range Interpretation Comments Chloride Lvl (test code = Chloride Lvl) 103 95-109 [facility] [id number] 09:29:00 Test Item Value Reference Range Interpretation Comments CO2 (test code = CO2) 24 24-32 [facility] [id number] 09:29:00 Test Item Value Reference Range Interpretation Comments AGAP (test code = AGAP) 11.3 10.0-20.0 [facility] [id number] 09:29:00 Test Item Value Reference Range Interpretation Comments Calcium Lvl (test code = Calcium Lvl) 8.2 8.5-10.5 [facility] CenterPicassoMio.com [id number] 09:29:00 Test Item Value Reference Range Interpretation Comments eGFR (test code = eGFR) 6 [facility] [id number] 09:29:00 Test Item Value Reference Range Interpretation Comments WBC (test code = WBC) 9.0 3.7-10.4 [facility] TexasSthawjwBLCTOUGLAG3324-07-21 09:29:00 Test Item Value Reference Range Interpretation Comments RBC (test code = RBC) 3.27 4.70-6.10 [facility] TexasEtstacjKZRCNOTIUH3832-77-00 09:29:00 Test Item Value Reference Range Interpretation Comments Hgb (test code = Hgb) 11.1 14.0-18.0 [facility] [id number] 09:29:00 Test Item Value Reference Range Interpretation Comments PTT (test code = PTT) 32.1 s 22.9-35.8 [facility] TexasLjtxmkwRJSAQTYVIO9562-37-49 09:29:00 Test Item Value Reference Range Interpretation Comments Hct (test code = Hct) 33.7 42.0-54.0 [facility] TexasJxrqjmkBSYOSUYTWH0858-95-06 09:29:00 Test Item Value Reference Range Interpretation Comments MCV (test code = MCV) 102.8 80.0-94.0 [facility] TexasHiwamaeVOXFULOYXV8998-80-45 09:29:00 Test Item Value Reference Range Interpretation Comments MCH (test code = MCH) 33.8 pg 27.0-31.0 [facility] TexasXkpnlvgLDXZBGUJUM7300-58-63 09:29:00 Test Item Value Reference Range Interpretation Comments MCHC (test code = MCHC) 32.9 32.0-36.0 [facility] TexasAamdsfvZRJTSKIZPC7941-71-00 09:29:00 Test Item Value Reference Range Interpretation Comments RDW (test code = RDW) 15.0 11.5-14.5 [facility] TexasLzzjrhuMOUKSDNMRR4656-14-00 09:29:00 Test Item Value Reference Range Interpretation Comments Platelet (test code = Platelet) 188 133-450 [facility] TexasEkwhpyyZWIEFWUCJQ5223-99-51 09:29:00 Test Item Value Reference Range Interpretation Comments MPV (test code = MPV) 8.6 7.4-10.4 [place] 967413-03-12 09:29:00 Test Item Value Reference Range Interpretation Comments PT (test code = PT) 14.5 s 12.0-14.7 [facility] TexasLiqlqiiVHESJLFIAS0691-30-78 09:29:00 Test Item Value Reference Range Interpretation Comments INR (test code = INR) 1.13 1 0.85-1.17 [place] 967413-03-12 09:29:00 Test Item Value Reference Range Interpretation Comments PTT (test code = PTT) 32.1 s 22.9-35.8 [place] [address]-03-12 09:29:00 Test Item Value Reference Range Interpretation Comments Segs (test code = Segs) 70.6 45.0-75.0 [place] [address]-03-12 09:29:00 Test Item Value Reference Range Interpretation Comments Segs (test code = Segs) 70.6 45.0-75.0 [place] [address]-03-12 09:29:00 Test Item Value Reference Range Interpretation Comments Lymphocytes (test code = Lymphocytes) 18.1 20.0-40.0 [place] [address]-03-12 09:29:00 Test Item Value Reference Range Interpretation Comments Monocytes (test code = Monocytes) 10.7 2.0-12.0 [place] [address]-03-12 09:29:00 Test Item Value Reference Range Interpretation Comments Eosinophils (test code = Eosinophils) 0.2 <=4.0 [place] [address]-03-12 09:29:00 Test Item Value Reference Range Interpretation Comments Basophils (test code = Basophils) 0.4 <=1.0 [place] [address]-03-12 09:29:00 Test Item Value Reference Range Interpretation Comments Neutrophils # (test code = Neutrophils 6.4 1.5-8.1 #) [place] 967413-03-12 09:29:00 Test Item Value Reference Range Interpretation Comments Lymphocytes # (test code = Lymphocytes 1.6 1.0-5.5 #) [place] [address]-03-12 09:29:00 Test Item Value Reference Range Interpretation Comments Monocytes # (test code = Monocytes #) 1.0 <=0.8 [place] [address]-03-12 09:29:00 Test Item Value Reference Range Interpretation Comments Macrocyte (test code = 1+ *ABN*(12/08/22 Macrocyte) 4:29 AM) [place] [address]-03-12 09:29:00 Test Item Value Reference Range Interpretation Comments PT (test code = PT) 14.5 s 12.0-14.7 [place] [address]-03-12 09:29:00 Test Item Value Reference Range Interpretation Comments Lymphocytes (test code = Lymphocytes) 18.1 20.0-40.0 [place] [address]-03-12 09:29:00 Test Item Value Reference Range Interpretation Comments INR (test code = INR) 1.13 1 0.85-1.17 [place] [address]-03-12 09:29:00 Test Item Value Reference Range Interpretation Comments PTT (test code = PTT) 32.1 s 22.9-35.8 [place] [address]-03-12 09:29:00 Test Item Value Reference Range Interpretation Comments Monocytes (test code = Monocytes) 10.7 2.0-12.0 [place] [address]-03-12 09:29:00 Test Item Value Reference Range Interpretation Comments Eosinophils (test code = 0.2 See_Comment [A utomated message] The Eosinophils) system which ge nerated this result tra nsmitted reference range : <=4.0. The reference r jillian was not used to int erpret this result as normal/abnormal . [place] [address]-03-12 09:29:00 Test Item Value Reference Range Interpretation Comments Basophils (test code = 0.4 See_Comment [Aut omated message] The Basophils) system which ge nerated this result tra nsmitted reference range : <=1.0. The reference r jillian was not used to int erpret this result as normal/abnormal . [place] 967413-03-12 09:29:00 Test Item Value Reference Range Interpretation Comments Neutrophils # (test code = Neutrophils 6.4 1.5-8.1 #) [place] 967413-03-12 09:29:00 Test Item Value Reference Range Interpretation Comments Lymphocytes # (test code = Lymphocytes 1.6 1.0-5.5 #) [place] [address]-03-12 09:29:00 Test Item Value Reference Range Interpretation Comments Monocytes # (test code 1.0 See_Comment [Aut omated message] The = Monocytes #) system which generated this result tra nsmitted reference range : <=0.8. The reference r jillian was not used to int erpret this result as normal/abnormal . [place] 967413-03-12 09:29:00 Test Item Value Reference Range Interpretation Comments Macrocyte (test code = 1+ *ABN*(12/08/22 Macrocyte) 4:29 AM) Stage I DiagnosticsKpiqtjwYYEZHODKIS5300-49-87 09:29:00 Test Item Value Reference Range Interpretation Comments PT (test code = PT) 14.5 s 12.0-14.7 [facility] GbeidmmIQQVUFXXPM8033-60-66 09:29:00 Test Item Value Reference Range Interpretation Comments INR (test code = INR) 1.13 1 0.85-1.17 [facility] AzhhqqqFBLNUVYSPT2779-74-82 09:29:00 Test Item Value Reference Range Interpretation Comments PTT (test code = PTT) 32.1 s 22.9-35.8 [employer] MVTCXLO7969-03-56 09:29:00 Test Item Value Reference Range Interpretation Comments Antibody Scrn (test Negative (12/08/22 4:29 code = Antibody Scrn) AM) [employer] [id number] 09:29:00 Test Item Value Reference Range Interpretation Comments ABO/Rh (test code = ABO/Rh) O POS [facility] [employer]2023-03-12 09:29:00 Test Item Value Reference Range Interpretation Comments Glucose Lvl (test code = Glucose Lvl) 101 70-99 [facility] [employer]2023-03-12 09:29:00 Test Item Value Reference Range Interpretation Comments BUN (test code = BUN) 62 7-22 [facility] [employer] [id number] 09:29:00 Test Item Value Reference Range Interpretation Comments Creatinine Lvl (test code = Creatinine 9.67 0.50-1.40 Lvl) [employer]2023-03-12 09:29:00 Test Item Value Reference Range Interpretation Comments Sodium Lvl (test code = Sodium Lvl) 133 135-145 [employer]2023-03-12 09:29:00 Test Item Value Reference Range Interpretation Comments Potassium Lvl (test code = Potassium 5.3 3.5-5.1 Lvl) [employer]2023-03-12 09:29:00 Test Item Value Reference Range Interpretation Comments Chloride Lvl (test code = Chloride Lvl) 103 95-109 [facility] [employer]2023-03-12 09:29:00 Test Item Value Reference Range Interpretation Comments CO2 (test code = CO2) 24 24-32 [facility]2023-03-12 09:29:00 Test Item Value Reference Range Interpretation Comments AGAP (test code = AGAP) 11.3 10.0-20.0 [facility] [id number] 09:29:00 Test Item Value Reference Range Interpretation Comments Calcium Lvl (test code = Calcium Lvl) 8.2 8.5-10.5 [facility] [id number] 09:29:00 Test Item Value Reference Range Interpretation Comments eGFR (test code = eGFR) 6 [facility]HLF[facility]172-[facility]-67 09:29:00 Test Item Value Reference Range Interpretation Comments WBC (test code = WBC) 9.0 3.7-10.4 [place] [address]-03-12 09:29:00 Test Item Value Reference Range Interpretation Comments RBC (test code = RBC) 3.27 4.70-6.10 [place] 967413-03-12 09:29:00 Test Item Value Reference Range Interpretation Comments Hgb (test code = Hgb) 11.1 14.0-18.0 [place] [address]-03-12 09:29:00 Test Item Value Reference Range Interpretation Comments Hct (test code = Hct) 33.7 42.0-54.0 [place] [address]-03-12 09:29:00 Test Item Value Reference Range Interpretation Comments MCV (test code = MCV) 102.8 80.0-94.0 [place] [address]-03-12 09:29:00 Test Item Value Reference Range Interpretation Comments MCH (test code = MCH) 33.8 pg 27.0-31.0 [place] [address]-03-12 09:29:00 Test Item Value Reference Range Interpretation Comments MCHC (test code = MCHC) 32.9 32.0-36.0 [place] [address]-03-12 09:29:00 Test Item Value Reference Range Interpretation Comments RDW (test code = RDW) 15.0 11.5-14.5 [place] 967413-03-12 09:29:00 Test Item Value Reference Range Interpretation Comments Platelet (test code = Platelet) 188 133-450 [place] 967413-03-12 09:29:00 Test Item Value Reference Range Interpretation Comments MPV (test code = MPV) 8.6 7.4-10.4 [place] [address]-03-12 09:29:00 Test Item Value Reference Range Interpretation Comments PT (test code = PT) 14.5 s 12.0-14.7 [place] [address]-03-12 09:29:00 Test Item Value Reference Range Interpretation Comments INR (test code = INR) 1.13 1 0.85-1.17 [place] [address]-03-12 09:29:00 Test Item Value Reference Range Interpretation Comments PTT (test code = PTT) 32.1 s 22.9-35.8 [place] [address]-03-12 09:29:00 Test Item Value Reference Range Interpretation Comments Segs (test code = Segs) 70.6 45.0-75.0 [place] [address]-03-12 09:29:00 Test Item Value Reference Range Interpretation Comments Lymphocytes (test code = Lymphocytes) 18.1 20.0-40.0 [place] [address]-03-12 09:29:00 Test Item Value Reference Range Interpretation Comments Monocytes (test code = Monocytes) 10.7 2.0-12.0 [place] [address]-03-12 09:29:00 Test Item Value Reference Range Interpretation Comments Eosinophils (test code = 0.2 See_Comment [A utomated message] The Eosinophils) system which ge nerated this result tra nsmitted reference range : <=4.0. The reference r jillian was not used to int erpret this result as normal/abnormal . [place] 967413-03-12 09:29:00 Test Item Value Reference Range Interpretation Comments Basophils (test code = 0.4 See_Comment [Aut omated message] The Basophils) system which ge nerated this result tra nsmitted reference range : <=1.0. The reference r jillian was not used to int erpret this result as normal/abnormal . [place] [address]-03-12 09:29:00 Test Item Value Reference Range Interpretation Comments Neutrophils # (test code = Neutrophils 6.4 1.5-8.1 #) [place] [address]-03-12 09:29:00 Test Item Value Reference Range Interpretation Comments Lymphocytes # (test code = Lymphocytes 1.6 1.0-5.5 #) [facility]siitmxAZFFRJCFQL9562-10-44 09:29:00 Test Item Value Reference Range Interpretation Comments Monocytes # (test code 1.0 See_Comment [Aut omated message] The = Monocytes #) system which generated this result tra nsmitted reference range : <=0.8. The reference r jillian was not used to int erpret this result as normal/abnormal . [facility] CjybljdWUXJEJDDVL3569-87-44 09:29:00 Test Item Value Reference Range Interpretation Comments Macrocyte (test code = 1+ *ABN*(12/08/22 Macrocyte) 4:29 AM) [facility] FmlhvyaTEUIWJXYMS3683-76-60 09:29:00 Test Item Value Reference Range Interpretation Comments PT (test code = PT) 14.5 s 12.0-14.7 [facility] YgyrllzWMBSXHSRLA5151-28-51 09:29:00 Test Item Value Reference Range Interpretation Comments INR (test code = INR) 1.13 1 0.85-1.17 [facility] DccbqvhOSSHOOBAZB2837-07-04 09:29:00 Test Item Value Reference Range Interpretation Comments PTT (test code = PTT) 32.1 s 22.9-35.8 [facility] [employer] [id number] 09:29:00 Test Item Value Reference Range Interpretation Comments Antibody Scrn (test Negative (12/08/22 4:29 code = Antibody Scrn) AM) [facility] [employer] [id number] 09:29:00 Test Item Value Reference Range Interpretation Comments ABO/Rh (test code = ABO/Rh) O POS [facility] [employer]2023-03-12 09:29:00 Test Item Value Reference Range Interpretation Comments Glucose Lvl (test code = Glucose Lvl) 101 70-99 [facility] [employer]2023-03-12 09:29:00 Test Item Value Reference Range Interpretation Comments BUN (test code = BUN) 62 7-22 [facility] [employer]2023-03-12 09:29:00 Test Item Value Reference Range Interpretation Comments Creatinine Lvl (test code = Creatinine 9.67 0.50-1.40 Lvl) [employer]2023-03-12 09:29:00 Test Item Value Reference Range Interpretation Comments Sodium Lvl (test code = Sodium Lvl) 133 135-145 [place] 477493-03-12 09:29:00 Test Item Value Reference Range Interpretation Comments Potassium Lvl (test code = Potassium 5.3 3.5-5.1 Lvl) [place] 477493-03-12 09:29:00 Test Item Value Reference Range Interpretation Comments Chloride Lvl (test code = Chloride Lvl) 103 95-109 [place] [address]-03-12 09:29:00 Test Item Value Reference Range Interpretation Comments CO2 (test code = CO2) 24 24-32 [place] [address]-03-12 09:29:00 Test Item Value Reference Range Interpretation Comments AGAP (test code = AGAP) 11.3 10.0-20.0 [place] [address]-03-12 09:29:00 Test Item Value Reference Range Interpretation Comments Calcium Lvl (test code = Calcium Lvl) 8.2 8.5-10.5 [place] 477493-03-12 09:29:00 Test Item Value Reference Range Interpretation Comments eGFR (test code = eGFR) 6 [place] [address]-03-12 09:29:00 Test Item Value Reference Range Interpretation Comments WBC (test code = WBC) 9.0 3.7-10.4 [place] [address]-03-12 09:29:00 Test Item Value Reference Range Interpretation Comments RBC (test code = RBC) 3.27 4.70-6.10 [place] [address]-03-12 09:29:00 Test Item Value Reference Range Interpretation Comments Hgb (test code = Hgb) 11.1 14.0-18.0 [place] [address]-03-12 09:29:00 Test Item Value Reference Range Interpretation Comments Hct (test code = Hct) 33.7 42.0-54.0 [place] [address]-03-12 09:29:00 Test Item Value Reference Range Interpretation Comments MCV (test code = MCV) 102.8 80.0-94.0 [place] [address]-03-12 09:29:00 Test Item Value Reference Range Interpretation Comments MCH (test code = MCH) 33.8 pg 27.0-31.0 [place] [address]-03-12 09:29:00 Test Item Value Reference Range Interpretation Comments MCHC (test code = MCHC) 32.9 32.0-36.0 [place] [address]-03-12 09:29:00 Test Item Value Reference Range Interpretation Comments RDW (test code = RDW) 15.0 11.5-14.5 [place] [address]-03-12 09:29:00 Test Item Value Reference Range Interpretation Comments Platelet (test code = Platelet) 188 133-450 [place] 967413-03-12 09:29:00 Test Item Value Reference Range Interpretation Comments MPV (test code = MPV) 8.6 7.4-10.4 [place] [address]-03-12 09:29:00 Test Item Value Reference Range Interpretation Comments PT (test code = PT) 14.5 s 12.0-14.7 [place] [address]-03-12 09:29:00 Test Item Value Reference Range Interpretation Comments INR (test code = INR) 1.13 1 0.85-1.17 [place] [address]-03-12 09:29:00 Test Item Value Reference Range Interpretation Comments PTT (test code = PTT) 32.1 s 22.9-35.8 [place] [address]-03-12 09:29:00 Test Item Value Reference Range Interpretation Comments Segs (test code = Segs) 70.6 45.0-75.0 [place] [address]-03-12 09:29:00 Test Item Value Reference Range Interpretation Comments Lymphocytes (test code = Lymphocytes) 18.1 20.0-40.0 [place] [address]-03-12 09:29:00 Test Item Value Reference Range Interpretation Comments Monocytes (test code = Monocytes) 10.7 2.0-12.0 [place] [address]-03-12 09:29:00 Test Item Value Reference Range Interpretation Comments Eosinophils (test code = 0.2 See_Comment [A utomated message] The Eosinophils) system which ge nerated this result tra nsmitted reference range : <=4.0. The reference r jillian was not used to int erpret this result as normal/abnormal . [place] 967413-03-12 09:29:00 Test Item Value Reference Range Interpretation Comments Basophils (test code = 0.4 See_Comment [Aut omated message] The Basophils) system which ge nerated this result tra nsmitted reference range : <=1.0. The reference r jillian was not used to int erpret this result as normal/abnormal . [facility] HospitalKllnausXHTDNSBYGR5137-18-31 09:29:00 Test Item Value Reference Range Interpretation Comments Neutrophils # (test code = Neutrophils 6.4 1.5-8.1 #) [facility] HospitalPaogfwpTJIUXADWRG0718-68-41 09:29:00 Test Item Value Reference Range Interpretation Comments Lymphocytes # (test code = Lymphocytes 1.6 1.0-5.5 #) [facility] HospitalQwxvhzrXEMSFRYOAC2659-69-69 09:29:00 Test Item Value Reference Range Interpretation Comments Monocytes # (test code 1.0 See_Comment [Aut omated message] The = Monocytes #) system which generated this result tra nsmitted reference range : <=0.8. The reference r jillian was not used to int erpret this result as normal/abnormal . [facility]csUTMEAPEKHF3500-48-70 09:29:00 Test Item Value Reference Range Interpretation Comments Macrocyte (test code = 1+ *ABN*(12/08/22 Macrocyte) 4:29 AM) [facility] HospitalAhwcktuKBLXZYNEGF6420-24-28 09:29:00 Test Item Value Reference Range Interpretation Comments PT (test code = PT) 14.5 s 12.0-14.7 [facility] HospitalEallsgjWPIBOHNLCA1126-90-95 09:29:00 Test Item Value Reference Range Interpretation Comments INR (test code = INR) 1.13 1 0.85-1.17 [facility] HospitalEdlczwzLXICCPVZPD6953-09-53 09:29:00 Test Item Value Reference Range Interpretation Comments PTT (test code = PTT) 32.1 s 22.9-35.8 [facility] Hospitali-Neumaticos OBHOWCO6467-91-09 09:29:00 Test Item Value Reference Range Interpretation Comments Antibody Scrn (test Negative (12/08/22 4:29 code = Antibody Scrn) AM) [facility] [id number] 09:29:00 Test Item Value Reference Range Interpretation Comments ABO/Rh (test code = ABO/Rh) O POS [facility] [employer]CHE[employer] [id number] 09:29:00 Test Item Value Reference Range Interpretation Comments Glucose Lvl (test code = Glucose Lvl) 101 70-99 [place] [address]-03-12 09:29:00 Test Item Value Reference Range Interpretation Comments BUN (test code = BUN) 62 7-22 [place] [address]-03-12 09:29:00 Test Item Value Reference Range Interpretation Comments Creatinine Lvl (test code = Creatinine 9.67 0.50-1.40 Lvl) [place] [address]-03-12 09:29:00 Test Item Value Reference Range Interpretation Comments Sodium Lvl (test code = Sodium Lvl) 133 135-145 [place] [address]-03-12 09:29:00 Test Item Value Reference Range Interpretation Comments Potassium Lvl (test code = Potassium 5.3 3.5-5.1 Lvl) [place] [address]-03-12 09:29:00 Test Item Value Reference Range Interpretation Comments Chloride Lvl (test code = Chloride Lvl) 103 95-109 [place] [address]-03-12 09:29:00 Test Item Value Reference Range Interpretation Comments CO2 (test code = CO2) 24 24-32 [place] [address]-03-12 09:29:00 Test Item Value Reference Range Interpretation Comments AGAP (test code = AGAP) 11.3 10.0-20.0 [place] [address]-03-12 09:29:00 Test Item Value Reference Range Interpretation Comments Calcium Lvl (test code = Calcium Lvl) 8.2 8.5-10.5 [place] [address]-03-12 09:29:00 Test Item Value Reference Range Interpretation Comments eGFR (test code = eGFR) 6 [place] [address]-03-12 09:29:00 Test Item Value Reference Range Interpretation Comments WBC (test code = WBC) 9.0 3.7-10.4 [place] [address]-03-12 09:29:00 Test Item Value Reference Range Interpretation Comments RBC (test code = RBC) 3.27 4.70-6.10 [place] [address]-03-12 09:29:00 Test Item Value Reference Range Interpretation Comments Hgb (test code = Hgb) 11.1 14.0-18.0 [place] [address]-03-12 09:29:00 Test Item Value Reference Range Interpretation Comments Hct (test code = Hct) 33.7 42.0-54.0 [place] [address]-03-12 09:29:00 Test Item Value Reference Range Interpretation Comments MCV (test code = MCV) 102.8 80.0-94.0 [place] [address]-03-12 09:29:00 Test Item Value Reference Range Interpretation Comments MCH (test code = MCH) 33.8 pg 27.0-31.0 [place] [address]-03-12 09:29:00 Test Item Value Reference Range Interpretation Comments MCHC (test code = MCHC) 32.9 32.0-36.0 [place] [address]-03-12 09:29:00 Test Item Value Reference Range Interpretation Comments RDW (test code = RDW) 15.0 11.5-14.5 [place] [address]-03-12 09:29:00 Test Item Value Reference Range Interpretation Comments Platelet (test code = Platelet) 188 133-450 [facility]JagatmkJWOWUHKYGC4254-85-36 09:29:00 Test Item Value Reference Range Interpretation Comments MPV (test code = MPV) 8.6 7.4-10.4 [place] [address]-03-12 09:29:00 Test Item Value Reference Range Interpretation Comments PT (test code = PT) 14.5 s 12.0-14.7 [place] [address]-03-12 09:29:00 Test Item Value Reference Range Interpretation Comments INR (test code = INR) 1.13 1 0.85-1.17 [place] [address]-03-12 09:29:00 Test Item Value Reference Range Interpretation Comments PTT (test code = PTT) 32.1 s 22.9-35.8 [place] [address]-03-12 09:29:00 Test Item Value Reference Range Interpretation Comments Segs (test code = Segs) 70.6 45.0-75.0 [place] [address]-03-12 09:29:00 Test Item Value Reference Range Interpretation Comments Lymphocytes (test code = Lymphocytes) 18.1 20.0-40.0 [place] [address]-03-12 09:29:00 Test Item Value Reference Range Interpretation Comments Monocytes (test code = Monocytes) 10.7 2.0-12.0 [place] [address]-03-12 09:29:00 Test Item Value Reference Range Interpretation Comments Eosinophils (test code = Eosinophils) 0.2 <=4.0 [place] [address]-03-12 09:29:00 Test Item Value Reference Range Interpretation Comments Basophils (test code = Basophils) 0.4 <=1.0 [place] 967413-03-12 09:29:00 Test Item Value Reference Range Interpretation Comments Neutrophils # (test code = Neutrophils 6.4 1.5-8.1 #) [place] 967413-03-12 09:29:00 Test Item Value Reference Range Interpretation Comments Lymphocytes # (test code = Lymphocytes 1.6 1.0-5.5 #) [place] 967413-03-12 09:29:00 Test Item Value Reference Range Interpretation Comments Monocytes # (test code = Monocytes #) 1.0 <=0.8 [place] [address]-03-12 09:29:00 Test Item Value Reference Range Interpretation Comments Macrocyte (test code = 1+ *ABN*(12/08/22 Macrocyte) 4:29 AM) [place] [address]-03-12 09:29:00 Test Item Value Reference Range Interpretation Comments PT (test code = PT) 14.5 s 12.0-14.7 [place] [address]-03-12 09:29:00 Test Item Value Reference Range Interpretation Comments INR (test code = INR) 1.13 1 0.85-1.17 [place] [address]-03-12 09:29:00 Test Item Value Reference Range Interpretation Comments PTT (test code = PTT) 32.1 s 22.9-35.8 [place] 477493-03-11 11:20:00 Test Item Value Reference Range Interpretation Comments Glucose Lvl (test code = Glucose Lvl) 125 70-99 [facility]2023-03-11 11:20:00 Test Item Value Reference Range Interpretation Comments BUN (test code = BUN) 49 7-22 [place] 477493-03-11 11:20:00 Test Item Value Reference Range Interpretation Comments Creatinine Lvl (test code = Creatinine 8.68 0.50-1.40 Lvl) [place] 477493-03-11 11:20:00 Test Item Value Reference Range Interpretation Comments Sodium Lvl (test code = Sodium Lvl) 131 135-145 [place] 477493-03-11 11:20:00 Test Item Value Reference Range Interpretation Comments Potassium Lvl (test code = Potassium 5.4 3.5-5.1 Lvl) [place] 477493-03-11 11:20:00 Test Item Value Reference Range Interpretation Comments Chloride Lvl (test code = Chloride Lvl) 102 95-109 [place] 477493-03-11 11:20:00 Test Item Value Reference Range Interpretation Comments CO2 (test code = CO2) 22 24-32 [place] 477493-03-11 11:20:00 Test Item Value Reference Range Interpretation Comments AGAP (test code = AGAP) 12.4 10.0-20.0 [place] [address]-03-11 11:20:00 Test Item Value Reference Range Interpretation Comments Calcium Lvl (test code = Calcium Lvl) 8.8 8.5-10.5 [place] 477493-03-11 11:20:00 Test Item Value Reference Range Interpretation Comments eGFR (test code = eGFR) 7 [facility]LsreyxsCDVAXGKZPJ4175-18-12 11:20:00 Test Item Value Reference Range Interpretation Comments WBC (test code = WBC) 13.5 3.7-10.4 [place] [address]-03-11 11:20:00 Test Item Value Reference Range Interpretation Comments RBC (test code = RBC) 3.62 4.70-6.10 [place] [address]-03-11 11:20:00 Test Item Value Reference Range Interpretation Comments Hgb (test code = Hgb) 12.1 14.0-18.0 [place] [address]-03-11 11:20:00 Test Item Value Reference Range Interpretation Comments Hct (test code = Hct) 37.2 42.0-54.0 [place] [address]-03-11 11:20:00 Test Item Value Reference Range Interpretation Comments MCV (test code = MCV) 102.8 80.0-94.0 [place] [address]-03-11 11:20:00 Test Item Value Reference Range Interpretation Comments MCH (test code = MCH) 33.5 pg 27.0-31.0 [facility]yrxywJDIUNZVLJG6215-13-90 11:20:00 Test Item Value Reference Range Interpretation Comments MCHC (test code = MCHC) 32.6 32.0-36.0 [facility] RegionCiqhproXXQMIQHOVK5386-39-63 11:20:00 Test Item Value Reference Range Interpretation Comments RDW (test code = RDW) 15.1 11.5-14.5 [facility] RegionHqipfntTHCNBPIUST7164-82-87 11:20:00 Test Item Value Reference Range Interpretation Comments Platelet (test code = Platelet) 195 133-450 [facility]NzifqwzJKVXRJHXNQ6217-23-81 11:20:00 Test Item Value Reference Range Interpretation Comments MPV (test code = MPV) 8.4 7.4-10.4 [facility] TexasDxnrzgpFEMLOVDBIN9114-47-27 11:20:00 Test Item Value Reference Range Interpretation Comments Segs (test code = Segs) 84.0 45.0-75.0 [facility] TexasScajneqHOIEQWXOAY6584-63-58 11:20:00 Test Item Value Reference Range Interpretation Comments Lymphocytes (test code = Lymphocytes) 6.4 20.0-40.0 [facility] RegionLihsarePAOJXJVZCV9847-53-49 11:20:00 Test Item Value Reference Range Interpretation Comments Monocytes (test code = Monocytes) 9.5 2.0-12.0 [facility] RegionVbrldwaQTBNXZXKZY0889-40-73 11:20:00 Test Item Value Reference Range Interpretation Comments Basophils (test code = Basophils) 0.1 <=1.0 [facility] RegionQuezvfiGZDCITSFTD7227-14-31 11:20:00 Test Item Value Reference Range Interpretation Comments Neutrophils # (test code = Neutrophils 11.4 1.5-8.1 #) [facility] RegionYjcvoacGJQFHNEVWS0314-44-04 11:20:00 Test Item Value Reference Range Interpretation Comments Lymphocytes # (test code = Lymphocytes 0.9 1.0-5.5 #) [facility]GzvdnhtEFMPSHEPRP5483-78-96 11:20:00 Test Item Value Reference Range Interpretation Comments Monocytes # (test code = Monocytes #) 1.3 <=0.8 [facility] TexasUjvjeedIFQEBAHAMF1416-34-74 11:20:00 Test Item Value Reference Range Interpretation Comments Macrocyte (test code = 1+ *ABN*(12/07/22 Macrocyte) 5:20 AM) [place] 477493-03-11 11:20:00 Test Item Value Reference Range Interpretation Comments Glucose Lvl (test code = Glucose Lvl) 125 70-99 [place] 477493-03-11 11:20:00 Test Item Value Reference Range Interpretation Comments BUN (test code = BUN) 49 7-22 [place] [address]-03-11 11:20:00 Test Item Value Reference Range Interpretation Comments Creatinine Lvl (test code = Creatinine 8.68 0.50-1.40 Lvl) [place] 477493-03-11 11:20:00 Test Item Value Reference Range Interpretation Comments Sodium Lvl (test code = Sodium Lvl) 131 135-145 [place] 477493-03-11 11:20:00 Test Item Value Reference Range Interpretation Comments Potassium Lvl (test code = Potassium 5.4 3.5-5.1 Lvl) [place] 477493-03-11 11:20:00 Test Item Value Reference Range Interpretation Comments Chloride Lvl (test code = Chloride Lvl) 102 95-109 [place] 477493-03-11 11:20:00 Test Item Value Reference Range Interpretation Comments CO2 (test code = CO2) 22 24-32 [place] [address]-03-11 11:20:00 Test Item Value Reference Range Interpretation Comments AGAP (test code = AGAP) 12.4 10.0-20.0 [place] [address]-03-11 11:20:00 Test Item Value Reference Range Interpretation Comments Calcium Lvl (test code = Calcium Lvl) 8.8 8.5-10.5 [place] [address]-03-11 11:20:00 Test Item Value Reference Range Interpretation Comments eGFR (test code = eGFR) 7 [place] 967413-03-11 11:20:00 Test Item Value Reference Range Interpretation Comments WBC (test code = WBC) 13.5 3.7-10.4 [place] [address]-03-11 11:20:00 Test Item Value Reference Range Interpretation Comments RBC (test code = RBC) 3.62 4.70-6.10 [place] [address]-03-11 11:20:00 Test Item Value Reference Range Interpretation Comments Hgb (test code = Hgb) 12.1 14.0-18.0 [facility]wlotezEKJRAFTEUA5041-57-57 11:20:00 Test Item Value Reference Range Interpretation Comments Hct (test code = Hct) 37.2 42.0-54.0 [facility] TexasTkfzqwcONENJRKVKV2893-31-65 11:20:00 Test Item Value Reference Range Interpretation Comments MCV (test code = MCV) 102.8 80.0-94.0 [place] 967413-03-11 11:20:00 Test Item Value Reference Range Interpretation Comments MCH (test code = MCH) 33.5 pg 27.0-31.0 [place] 967413-03-11 11:20:00 Test Item Value Reference Range Interpretation Comments MCHC (test code = MCHC) 32.6 32.0-36.0 [facility]DljefmmXFIGSPYAFY5033-02-10 11:20:00 Test Item Value Reference Range Interpretation Comments RDW (test code = RDW) 15.1 11.5-14.5 [facility]FwbrexyMJFCEUNXOW0724-94-53 11:20:00 Test Item Value Reference Range Interpretation Comments Platelet (test code = Platelet) 195 133-450 [facility] TexasKjibmitYYCVDHOMUA8852-54-87 11:20:00 Test Item Value Reference Range Interpretation Comments MPV (test code = MPV) 8.4 7.4-10.4 [facility] TexasApsnkiqBRSOUBXOHU3400-08-90 11:20:00 Test Item Value Reference Range Interpretation Comments Segs (test code = Segs) 84.0 45.0-75.0 [facility] TexasOvbjhuuLTNVJSVHBN1554-40-51 11:20:00 Test Item Value Reference Range Interpretation Comments Lymphocytes (test code = Lymphocytes) 6.4 20.0-40.0 [place] [address]-03-11 11:20:00 Test Item Value Reference Range Interpretation Comments Monocytes (test code = Monocytes) 9.5 2.0-12.0 [place] 967413-03-11 11:20:00 Test Item Value Reference Range Interpretation Comments Basophils (test code = 0.1 See_Comment [Aut omated message] The Basophils) system which ge nerated this result tra nsmitted reference range : <=1.0. The reference r jillian was not used to int erpret this result as normal/abnormal . [facility] TexasRcbnortQTDYQOYZLJ4611-74-01 11:20:00 Test Item Value Reference Range Interpretation Comments Neutrophils # (test code = Neutrophils 11.4 1.5-8.1 #) [place] 967413-03-11 11:20:00 Test Item Value Reference Range Interpretation Comments Lymphocytes # (test code = Lymphocytes 0.9 1.0-5.5 #) [place] [address]-03-11 11:20:00 Test Item Value Reference Range Interpretation Comments Monocytes # (test code 1.3 See_Comment [Aut omated message] The = Monocytes #) system which generated this result tra nsmitted reference range : <=0.8. The reference r jillian was not used to int erpret this result as normal/abnormal . [place] [address]-03-11 11:20:00 Test Item Value Reference Range Interpretation Comments Macrocyte (test code = 1+ *ABN*(12/07/22 Macrocyte) 5:20 AM) [place] [address]-03-11 11:20:00 Test Item Value Reference Range Interpretation Comments Glucose Lvl (test code = Glucose Lvl) 125 70-99 [place] 477493-03-11 11:20:00 Test Item Value Reference Range Interpretation Comments BUN (test code = BUN) 49 7-22 [place] 477493-03-11 11:20:00 Test Item Value Reference Range Interpretation Comments Creatinine Lvl (test code = Creatinine 8.68 0.50-1.40 Lvl) [place] 477493-03-11 11:20:00 Test Item Value Reference Range Interpretation Comments Sodium Lvl (test code = Sodium Lvl) 131 135-145 [place] 477493-03-11 11:20:00 Test Item Value Reference Range Interpretation Comments Potassium Lvl (test code = Potassium 5.4 3.5-5.1 Lvl) [place] 477493-03-11 11:20:00 Test Item Value Reference Range Interpretation Comments Chloride Lvl (test code = Chloride Lvl) 102 95-109 [place] [address]-03-11 11:20:00 Test Item Value Reference Range Interpretation Comments CO2 (test code = CO2) 22 24-32 [place] 477493-03-11 11:20:00 Test Item Value Reference Range Interpretation Comments AGAP (test code = AGAP) 12.4 10.0-20.0 [facility] [id number] 11:20:00 Test Item Value Reference Range Interpretation Comments Calcium Lvl (test code = Calcium Lvl) 8.8 8.5-10.5 [facility] [id number] 11:20:00 Test Item Value Reference Range Interpretation Comments eGFR (test code = eGFR) 7 [facility]Kbmz[facility]TSKTGCKUGP7403-59-47 11:20:00 Test Item Value Reference Range Interpretation Comments WBC (test code = WBC) 13.5 3.7-10.4 [facility]EbmisqpIYHWBMVNKL7257-75-07 11:20:00 Test Item Value Reference Range Interpretation Comments RBC (test code = RBC) 3.62 4.70-6.10 [facility]ViotmwaXPHCMCHAGV4933-81-79 11:20:00 Test Item Value Reference Range Interpretation Comments Hgb (test code = Hgb) 12.1 14.0-18.0 [facility] TexasEnqoxrrEDHGVPSOYY6732-11-75 11:20:00 Test Item Value Reference Range Interpretation Comments Hct (test code = Hct) 37.2 42.0-54.0 [facility] TexasJluqadgMWTGWUGLVH8657-69-93 11:20:00 Test Item Value Reference Range Interpretation Comments MCV (test code = MCV) 102.8 80.0-94.0 [facility]BebqocqSIFSTLKJHD3988-87-68 11:20:00 Test Item Value Reference Range Interpretation Comments MCH (test code = MCH) 33.5 pg 27.0-31.0 [facility] RegionQzelxinPXYHABJOMN9526-95-98 11:20:00 Test Item Value Reference Range Interpretation Comments MCHC (test code = MCHC) 32.6 32.0-36.0 [facility]QfsqgxiDPFWRGCUNB2304-05-27 11:20:00 Test Item Value Reference Range Interpretation Comments RDW (test code = RDW) 15.1 11.5-14.5 [facility] TexasMpobferIWRHIEEJHU3517-23-42 11:20:00 Test Item Value Reference Range Interpretation Comments Platelet (test code = Platelet) 195 133-450 [facility] TexasZtasuynTZGSYHPOAF5785-28-52 11:20:00 Test Item Value Reference Range Interpretation Comments MPV (test code = MPV) 8.4 7.4-10.4 [place] [address]-03-11 11:20:00 Test Item Value Reference Range Interpretation Comments Segs (test code = Segs) 84.0 45.0-75.0 [place] 967413-03-11 11:20:00 Test Item Value Reference Range Interpretation Comments Lymphocytes (test code = Lymphocytes) 6.4 20.0-40.0 [place] [address]-03-11 11:20:00 Test Item Value Reference Range Interpretation Comments Monocytes (test code = Monocytes) 9.5 2.0-12.0 [place] [address]-03-11 11:20:00 Test Item Value Reference Range Interpretation Comments Basophils (test code = 0.1 See_Comment [Aut omated message] The Basophils) system which ge nerated this result tra nsmitted reference range : <=1.0. The reference r jillian was not used to int erpret this result as normal/abnormal . [place] 967413-03-11 11:20:00 Test Item Value Reference Range Interpretation Comments Neutrophils # (test code = Neutrophils 11.4 1.5-8.1 #) [facility] TexasBbrsznfELGXUPCIKY6169-56-34 11:20:00 Test Item Value Reference Range Interpretation Comments Lymphocytes # (test code = Lymphocytes 0.9 1.0-5.5 #) [place] [address]-03-11 11:20:00 Test Item Value Reference Range Interpretation Comments Monocytes # (test code 1.3 See_Comment [Aut omated message] The = Monocytes #) system which generated this result tra nsmitted reference range : <=0.8. The reference r jillian was not used to int erpret this result as normal/abnormal . [place] 967413-03-11 11:20:00 Test Item Value Reference Range Interpretation Comments Macrocyte (test code = 1+ *ABN*(12/07/22 Macrocyte) 5:20 AM) [place] 477493-03-11 11:20:00 Test Item Value Reference Range Interpretation Comments Glucose Lvl (test code = Glucose Lvl) 125 70-99 [place] 477493-03-11 11:20:00 Test Item Value Reference Range Interpretation Comments BUN (test code = BUN) 49 7-22 [place] 477493-03-11 11:20:00 Test Item Value Reference Range Interpretation Comments Creatinine Lvl (test code = Creatinine 8.68 0.50-1.40 Lvl) [place] 477493-03-11 11:20:00 Test Item Value Reference Range Interpretation Comments Sodium Lvl (test code = Sodium Lvl) 131 135-145 [place] 477493-03-11 11:20:00 Test Item Value Reference Range Interpretation Comments Potassium Lvl (test code = Potassium 5.4 3.5-5.1 Lvl) [place] 477493-03-11 11:20:00 Test Item Value Reference Range Interpretation Comments Chloride Lvl (test code = Chloride Lvl) 102 95-109 [place] 477493-03-11 11:20:00 Test Item Value Reference Range Interpretation Comments CO2 (test code = CO2) 22 24-32 [place] [address]-03-11 11:20:00 Test Item Value Reference Range Interpretation Comments AGAP (test code = AGAP) 12.4 10.0-20.0 [place] 477493-03-11 11:20:00 Test Item Value Reference Range Interpretation Comments Calcium Lvl (test code = Calcium Lvl) 8.8 8.5-10.5 [place] 477493-03-11 11:20:00 Test Item Value Reference Range Interpretation Comments eGFR (test code = eGFR) 7 [facility] TexasInhqenpHRCIJVMTSZ1572-87-70 11:20:00 Test Item Value Reference Range Interpretation Comments WBC (test code = WBC) 13.5 3.7-10.4 [place] [address]-03-11 11:20:00 Test Item Value Reference Range Interpretation Comments RBC (test code = RBC) 3.62 4.70-6.10 [place] [address]-03-11 11:20:00 Test Item Value Reference Range Interpretation Comments Hgb (test code = Hgb) 12.1 14.0-18.0 [place] [address]-03-11 11:20:00 Test Item Value Reference Range Interpretation Comments Hct (test code = Hct) 37.2 42.0-54.0 [place] [address]-03-11 11:20:00 Test Item Value Reference Range Interpretation Comments MCV (test code = MCV) 102.8 80.0-94.0 [facility] TexasExpqkodVBCCDUKLVF3680-13-29 11:20:00 Test Item Value Reference Range Interpretation Comments MCH (test code = MCH) 33.5 pg 27.0-31.0 [facility] TexasHpllffpVPYSZPSDFO1771-83-91 11:20:00 Test Item Value Reference Range Interpretation Comments MCHC (test code = MCHC) 32.6 32.0-36.0 [facility] TexasCyizrfcRMYDYNDEJE2176-05-06 11:20:00 Test Item Value Reference Range Interpretation Comments RDW (test code = RDW) 15.1 11.5-14.5 [place] 967413-03-11 11:20:00 Test Item Value Reference Range Interpretation Comments Platelet (test code = Platelet) 195 133-450 [facility] TexasSmywzmrUQKUIKMUAC7834-71-37 11:20:00 Test Item Value Reference Range Interpretation Comments MPV (test code = MPV) 8.4 7.4-10.4 [facility] TexasIbtebtgZUVPWYHFJC8794-80-58 11:20:00 Test Item Value Reference Range Interpretation Comments Segs (test code = Segs) 84.0 45.0-75.0 [facility] TexasEvzccsnHBUXGEDJWR1107-26-99 11:20:00 Test Item Value Reference Range Interpretation Comments Lymphocytes (test code = Lymphocytes) 6.4 20.0-40.0 [facility] TexasQszfzjtMRWZNHIWNN1143-56-69 11:20:00 Test Item Value Reference Range Interpretation Comments Monocytes (test code = Monocytes) 9.5 2.0-12.0 [facility] TexasPvachwqQTKUCOCRVK5201-38-52 11:20:00 Test Item Value Reference Range Interpretation Comments Basophils (test code = 0.1 See_Comment [Aut omated message] The Basophils) system which ge nerated this result tra nsmitted reference range : <=1.0. The reference r jillian was not used to int erpret this result as normal/abnormal . [facility] TexasFsxhhbuGBHUMXZYSK7364-76-94 11:20:00 Test Item Value Reference Range Interpretation Comments Neutrophils # (test code = Neutrophils 11.4 1.5-8.1 #) [facility] TexasOaclpanTDFBVQNCQZ3274-73-21 11:20:00 Test Item Value Reference Range Interpretation Comments Lymphocytes # (test code = Lymphocytes 0.9 1.0-5.5 #) [facility] TexasYdfhbmpEWUHNJVNYD9538-82-64 11:20:00 Test Item Value Reference Range Interpretation Comments Monocytes # (test code 1.3 See_Comment [Aut omated message] The = Monocytes #) system which generated this result tra nsmitted reference range : <=0.8. The reference r jillian was not used to int erpret this result as normal/abnormal . [facility] TexasYkigsfkSJZNHQUELL8297-31-53 11:20:00 Test Item Value Reference Range Interpretation Comments Macrocyte (test code = 1+ *ABN*(12/07/22 Macrocyte) 5:20 AM) [facility]2023-03-11 11:20:00 Test Item Value Reference Range Interpretation Comments Glucose Lvl (test code = Glucose Lvl) 125 70-99 [facility]2023-03-11 11:20:00 Test Item Value Reference Range Interpretation Comments BUN (test code = BUN) 49 7-22 [facility]2023-03-11 11:20:00 Test Item Value Reference Range Interpretation Comments Creatinine Lvl (test code = Creatinine 8.68 0.50-1.40 Lvl) [facility]2023-03-11 11:20:00 Test Item Value Reference Range Interpretation Comments Sodium Lvl (test code = Sodium Lvl) 131 135-145 [facility]2023-03-11 11:20:00 Test Item Value Reference Range Interpretation Comments Potassium Lvl (test code = Potassium 5.4 3.5-5.1 Lvl) [facility]2023-03-11 11:20:00 Test Item Value Reference Range Interpretation Comments Chloride Lvl (test code = Chloride Lvl) 102 95-109 [facility]2023-03-11 11:20:00 Test Item Value Reference Range Interpretation Comments CO2 (test code = CO2) 22 24-32 [facility]2023-03-11 11:20:00 Test Item Value Reference Range Interpretation Comments AGAP (test code = AGAP) 12.4 10.0-20.0 [facility]2023-03-11 11:20:00 Test Item Value Reference Range Interpretation Comments Calcium Lvl (test code = Calcium Lvl) 8.8 8.5-10.5 [place] 477493-03-11 11:20:00 Test Item Value Reference Range Interpretation Comments eGFR (test code = eGFR) 7 [facility]IccvtkyFDKWSEGKIH2491-83-80 11:20:00 Test Item Value Reference Range Interpretation Comments WBC (test code = WBC) 13.5 3.7-10.4 [facility] TexasIderfkqEQNQHTMUTK3958-94-90 11:20:00 Test Item Value Reference Range Interpretation Comments RBC (test code = RBC) 3.62 4.70-6.10 [facility] TexasNablfizWLFCMHFFUR1530-00-20 11:20:00 Test Item Value Reference Range Interpretation Comments Hgb (test code = Hgb) 12.1 14.0-18.0 [facility] TexasJauiegkQSJTTEAWSL1757-12-06 11:20:00 Test Item Value Reference Range Interpretation Comments Hct (test code = Hct) 37.2 42.0-54.0 [facility] TexasGykqmcePBKNVYJGPL7015-65-17 11:20:00 Test Item Value Reference Range Interpretation Comments MCV (test code = MCV) 102.8 80.0-94.0 [facility] TexasZfzoebfHRWBISLHQO0972-64-24 11:20:00 Test Item Value Reference Range Interpretation Comments MCH (test code = MCH) 33.5 pg 27.0-31.0 [facility] TexasFvqvxohIGCNSJTOKA0559-66-48 11:20:00 Test Item Value Reference Range Interpretation Comments MCHC (test code = MCHC) 32.6 32.0-36.0 [facility] TexasHlfprkcCAHFPPGUZZ8974-38-20 11:20:00 Test Item Value Reference Range Interpretation Comments RDW (test code = RDW) 15.1 11.5-14.5 [facility] TexasPixpwcgQLYAUQSCKY6445-26-81 11:20:00 Test Item Value Reference Range Interpretation Comments Platelet (test code = Platelet) 195 133-450 [facility] TexasAzbrdeqANWWKZMJOG3945-50-12 11:20:00 Test Item Value Reference Range Interpretation Comments MPV (test code = MPV) 8.4 7.4-10.4 [facility] TexasDvarbmaESEKANVYSS6115-99-13 11:20:00 Test Item Value Reference Range Interpretation Comments Segs (test code = Segs) 84.0 45.0-75.0 [facility] TexasBrvpkaoFMMWBSDOLR3636-05-32 11:20:00 Test Item Value Reference Range Interpretation Comments Lymphocytes (test code = Lymphocytes) 6.4 20.0-40.0 [facility]MbcevooXOLKMULQBN8283-76-27 11:20:00 Test Item Value Reference Range Interpretation Comments Monocytes (test code = Monocytes) 9.5 2.0-12.0 [place] [address]-03-11 11:20:00 Test Item Value Reference Range Interpretation Comments Basophils (test code = 0.1 See_Comment [Aut omated message] The Basophils) system which ge nerated this result tra nsmitted reference range : <=1.0. The reference r jillian was not used to int erpret this result as normal/abnormal . [place] [address]-03-11 11:20:00 Test Item Value Reference Range Interpretation Comments Neutrophils # (test code = Neutrophils 11.4 1.5-8.1 #) [place] [address]-03-11 11:20:00 Test Item Value Reference Range Interpretation Comments Lymphocytes # (test code = Lymphocytes 0.9 1.0-5.5 #) [place] 477493-03-11 11:20:00 Test Item Value Reference Range Interpretation Comments Glucose Lvl (test code = Glucose Lvl) 125 70-99 [place] 477493-03-11 11:20:00 Test Item Value Reference Range Interpretation Comments BUN (test code = BUN) 49 7-22 [place] [address]-03-11 11:20:00 Test Item Value Reference Range Interpretation Comments Monocytes # (test code 1.3 See_Comment [Aut omated message] The = Monocytes #) system which generated this result tra nsmitted reference range : <=0.8. The reference r jillian was not used to int erpret this result as normal/abnormal . [place] 477493-03-11 11:20:00 Test Item Value Reference Range Interpretation Comments Creatinine Lvl (test code = Creatinine 8.68 0.50-1.40 Lvl) [place] 477493-03-11 11:20:00 Test Item Value Reference Range Interpretation Comments Sodium Lvl (test code = Sodium Lvl) 131 135-145 [place] 477493-03-11 11:20:00 Test Item Value Reference Range Interpretation Comments Potassium Lvl (test code = Potassium 5.4 3.5-5.1 Lvl) [place] 477493-03-11 11:20:00 Test Item Value Reference Range Interpretation Comments Chloride Lvl (test code = Chloride Lvl) 102 95-109 [facility] XBMXQ9462-83-98 11:20:00 Test Item Value Reference Range Interpretation Comments CO2 (test code = CO2) 22 24-32 [facility] SFZNH5754-92-07 11:20:00 Test Item Value Reference Range Interpretation Comments AGAP (test code = AGAP) 12.4 10.0-20.0 [facility] [id number] 11:20:00 Test Item Value Reference Range Interpretation Comments Calcium Lvl (test code = Calcium Lvl) 8.8 8.5-10.5 [facility] [id number] 11:20:00 Test Item Value Reference Range Interpretation Comments eGFR (test code = eGFR) 7 [facility] TexasUmucyjhWJGGWFNWMV5466-32-93 11:20:00 Test Item Value Reference Range Interpretation Comments WBC (test code = WBC) 13.5 3.7-10.4 [facility] TexasCymfekmOTREMRJQZO2424-63-84 11:20:00 Test Item Value Reference Range Interpretation Comments RBC (test code = RBC) 3.62 4.70-6.10 [facility] TexasScbfkanEAYQULMSBH4518-13-15 11:20:00 Test Item Value Reference Range Interpretation Comments Macrocyte (test code = 1+ *ABN*(12/07/22 Macrocyte) 5:20 AM) [facility] TexasKhjyctsUOYONXSNGZ3045-90-67 11:20:00 Test Item Value Reference Range Interpretation Comments Hgb (test code = Hgb) 12.1 14.0-18.0 [facility]OgdqsltJJRVYQZKSV1848-55-23 11:20:00 Test Item Value Reference Range Interpretation Comments Hct (test code = Hct) 37.2 42.0-54.0 [place] 967413-03-11 11:20:00 Test Item Value Reference Range Interpretation Comments MCV (test code = MCV) 102.8 80.0-94.0 [facility] TexasEleqefbHOKYTXKNAO0119-98-89 11:20:00 Test Item Value Reference Range Interpretation Comments MCH (test code = MCH) 33.5 pg 27.0-31.0 [facility] TexasXynsyxhMDLTPHGKCU6174-91-10 11:20:00 Test Item Value Reference Range Interpretation Comments MCHC (test code = MCHC) 32.6 32.0-36.0 [place] 967413-03-11 11:20:00 Test Item Value Reference Range Interpretation Comments RDW (test code = RDW) 15.1 11.5-14.5 [place] 967413-03-11 11:20:00 Test Item Value Reference Range Interpretation Comments Platelet (test code = Platelet) 195 133-450 [facility] TexasBtxeqefGAVHRIMQKF0704-51-46 11:20:00 Test Item Value Reference Range Interpretation Comments MPV (test code = MPV) 8.4 7.4-10.4 [place] 967413-03-11 11:20:00 Test Item Value Reference Range Interpretation Comments Segs (test code = Segs) 84.0 45.0-75.0 [place] 967413-03-11 11:20:00 Test Item Value Reference Range Interpretation Comments Lymphocytes (test code = Lymphocytes) 6.4 20.0-40.0 [facility] TexasWlfeapzGEFPLLHIGY3771-95-32 11:20:00 Test Item Value Reference Range Interpretation Comments Monocytes (test code = Monocytes) 9.5 2.0-12.0 [facility] TexasDtqovhtZKPFYKHADE5346-81-96 11:20:00 Test Item Value Reference Range Interpretation Comments Basophils (test code = Basophils) 0.1 <=1.0 [place] 967413-03-11 11:20:00 Test Item Value Reference Range Interpretation Comments Neutrophils # (test code = Neutrophils 11.4 1.5-8.1 #) [facility] TexasTxzbdtnYWUFLLWTUV7386-58-03 11:20:00 Test Item Value Reference Range Interpretation Comments Lymphocytes # (test code = Lymphocytes 0.9 1.0-5.5 #) [facility] TexasNpjkamyMRZWNDKKMP1539-39-26 11:20:00 Test Item Value Reference Range Interpretation Comments Monocytes # (test code = Monocytes #) 1.3 <=0.8 [place] [address]-03-11 11:20:00 Test Item Value Reference Range Interpretation Comments Macrocyte (test code = 1+ *ABN*(12/07/22 Macrocyte) 5:20 AM) [facility]2023-03-10 15:43:00 Test Item Value Reference Range Interpretation Comments Gluc POC Comment 2 (test code = Cleaned Meter Gluc POC Comment 2) [facility]2023-03-10 15:43:00 Test Item Value Reference Range Interpretation Comments Gluc POC Comment 2 (test code = Cleaned Meter Gluc POC Comment 2) [address]03-10 15:43:00 Test Item Value Reference Range Interpretation Comments Gluc POC Comment 2 (test code = Cleaned Meter Gluc POC Comment 2) [address]03-10 15:43:00 Test Item Value Reference Range Interpretation Comments Gluc POC Comment 2 (test code = Cleaned Meter Gluc POC Comment 2) [address]03-10 15:43:00 Test Item Value Reference Range Interpretation Comments Gluc POC Comment 2 (test code = Cleaned Meter Gluc POC Comment 2) [address]03-10 15:43:00 Test Item Value Reference Range Interpretation Comments Gluc POC Comment 2 (test code = Cleaned Meter Gluc POC Comment 2) [address]03-10 14:37:00 Test Item Value Reference Range Interpretation Comments WBC (test code = WBC) 8.5 3.7-10.4 [place] [address]-03-10 14:37:00 Test Item Value Reference Range Interpretation Comments RBC (test code = RBC) 3.56 4.70-6.[address]03-10 14:37:00 Test Item Value Reference Range Interpretation Comments Hgb (test code = Hgb) 12.1 14.0-18.0 [address]03-10 14:37:00 Test Item Value Reference Range Interpretation Comments Hct (test code = Hct) 37.2 42.0-54.0 [place] [address]-03-10 14:37:00 Test Item Value Reference Range Interpretation Comments MCV (test code = MCV) 104.6 80.0-94.0 [place] [address]-03-10 14:37:00 Test Item Value Reference Range Interpretation Comments MCH (test code = MCH) 33.9 pg 27.0-31.0 [place] [address]-03-10 14:37:00 Test Item Value Reference Range Interpretation Comments MCHC (test code = MCHC) 32.4 32.0-36.0 [place] [address]-03-10 14:37:00 Test Item Value Reference Range Interpretation Comments RDW (test code = RDW) 15.1 11.5-14.5 [facility] TexasQaetuwlVIXJBXFGPA2014-35-29 14:37:00 Test Item Value Reference Range Interpretation Comments Platelet (test code = Platelet) 189 133-450 [facility] TexasFovcikePHTTLHVUTX5719-47-87 14:37:00 Test Item Value Reference Range Interpretation Comments MPV (test code = MPV) 7.9 7.4-10.4 [place] 967413-03-10 14:37:00 Test Item Value Reference Range Interpretation Comments WBC (test code = WBC) 8.5 3.7-10.4 [place] 967413-03-10 14:37:00 Test Item Value Reference Range Interpretation Comments RBC (test code = RBC) 3.56 4.70-6.10 [place] 967413-03-10 14:37:00 Test Item Value Reference Range Interpretation Comments Hgb (test code = Hgb) 12.1 14.0-18.0 [place] [address]-03-10 14:37:00 Test Item Value Reference Range Interpretation Comments Hct (test code = Hct) 37.2 42.0-54.0 [facility]qu[facility]jLGQIERUQZM1612-[facility]-55 14:37:00 Test Item Value Reference Range Interpretation Comments MCV (test code = MCV) 104.6 80.0-94.0 [facility]LotdolxSHUACEJHUG9400-40-14 14:37:00 Test Item Value Reference Range Interpretation Comments MCH (test code = MCH) 33.9 pg 27.0-31.0 [facility]HfejmvtGDNURWLDRV3497-60-18 14:37:00 Test Item Value Reference Range Interpretation Comments MCHC (test code = MCHC) 32.4 32.0-36.0 [facility] TexasFsqeslgSQDSISRMWQ9262-19-24 14:37:00 Test Item Value Reference Range Interpretation Comments RDW (test code = RDW) 15.1 11.5-14.5 [place] [address]-03-10 14:37:00 Test Item Value Reference Range Interpretation Comments Platelet (test code = Platelet) 189 133-450 [place] 967413-03-10 14:37:00 Test Item Value Reference Range Interpretation Comments MPV (test code = MPV) 7.9 7.4-10.4 [facility]ExaszmzIXRQKYUOIU4476-18-35 14:37:00 Test Item Value Reference Range Interpretation Comments WBC (test code = WBC) 8.5 3.7-10.4 [facility] TexasWnhmdztRJEHQXGCUG9944-16-63 14:37:00 Test Item Value Reference Range Interpretation Comments RBC (test code = RBC) 3.56 4.70-6.10 [place] 967413-03-10 14:37:00 Test Item Value Reference Range Interpretation Comments Hgb (test code = Hgb) 12.1 14.0-18.0 [place] [address]-03-10 14:37:00 Test Item Value Reference Range Interpretation Comments Hct (test code = Hct) 37.2 42.0-54.0 [place] 967413-03-10 14:37:00 Test Item Value Reference Range Interpretation Comments MCV (test code = MCV) 104.6 80.0-94.0 [place] 967413-03-10 14:37:00 Test Item Value Reference Range Interpretation Comments MCH (test code = MCH) 33.9 pg 27.0-31.0 [facility]QcddbvxCJUEXVVBXI7809-25-11 14:37:00 Test Item Value Reference Range Interpretation Comments MCHC (test code = MCHC) 32.4 32.0-36.0 [facility] TexasXlbkbbkTOIALTEJCR6722-71-75 14:37:00 Test Item Value Reference Range Interpretation Comments RDW (test code = RDW) 15.1 11.5-14.5 [facility] TexasZiukewkKBIDZNFQXA5291-93-65 14:37:00 Test Item Value Reference Range Interpretation Comments Platelet (test code = Platelet) 189 133-450 [facility] TexasItgnetdCOAUORJRGF4067-75-85 14:37:00 Test Item Value Reference Range Interpretation Comments MPV (test code = MPV) 7.9 7.4-10.4 [place] [address]-03-10 14:37:00 Test Item Value Reference Range Interpretation Comments WBC (test code = WBC) 8.5 3.7-10.4 [facility] TexasRvoltfcMPZOXYEWVK1475-32-04 14:37:00 Test Item Value Reference Range Interpretation Comments RBC (test code = RBC) 3.56 4.70-6.10 [place] 967413-03-10 14:37:00 Test Item Value Reference Range Interpretation Comments Hgb (test code = Hgb) 12.1 14.0-18.0 [facility] TexasJuimnpyODGYUUMPZH7265-30-70 14:37:00 Test Item Value Reference Range Interpretation Comments Hct (test code = Hct) 37.2 42.0-54.0 [facility] TexasYaojhsjVYYTMAOONM8951-84-89 14:37:00 Test Item Value Reference Range Interpretation Comments MCV (test code = MCV) 104.6 80.0-94.0 [facility] TexasUzybpmiWAXBFKURUS9833-88-63 14:37:00 Test Item Value Reference Range Interpretation Comments MCH (test code = MCH) 33.9 pg 27.0-31.0 [facility] TexasSpqrnmsOFCIHLEJCL5593-47-64 14:37:00 Test Item Value Reference Range Interpretation Comments MCHC (test code = MCHC) 32.4 32.0-36.0 [facility] TexasXscxychFZKKBAAYAG6793-66-80 14:37:00 Test Item Value Reference Range Interpretation Comments RDW (test code = RDW) 15.1 11.5-14.5 [facility] TexasDwndbznHMHWEBKGGN4323-47-76 14:37:00 Test Item Value Reference Range Interpretation Comments Platelet (test code = Platelet) 189 133-450 [facility] TexasGozomvmFGZESIXLGX0055-90-33 14:37:00 Test Item Value Reference Range Interpretation Comments MPV (test code = MPV) 7.9 7.4-10.4 [facility] TexasYvwulgoTCFCHNHHEG1128-79-88 14:37:00 Test Item Value Reference Range Interpretation Comments WBC (test code = WBC) 8.5 3.7-10.4 [facility]IeilzqqGEYUYKCFAQ8680-62-16 14:37:00 Test Item Value Reference Range Interpretation Comments RBC (test code = RBC) 3.56 4.70-6.10 [facility] TexasDokuqnsKZQUADBEDV2975-25-01 14:37:00 Test Item Value Reference Range Interpretation Comments Hgb (test code = Hgb) 12.1 14.0-18.0 [facility] TexasBhomcasRGUJUTJYGN8274-15-70 14:37:00 Test Item Value Reference Range Interpretation Comments WBC (test code = WBC) 8.5 3.7-10.4 [facility] TexasDrnsoptKFVZBSKOUR2458-48-63 14:37:00 Test Item Value Reference Range Interpretation Comments Hct (test code = Hct) 37.2 42.0-54.0 [place] [address]-03-10 14:37:00 Test Item Value Reference Range Interpretation Comments MCV (test code = MCV) 104.6 80.0-94.0 [place] [address]-03-10 14:37:00 Test Item Value Reference Range Interpretation Comments MCH (test code = MCH) 33.9 pg 27.0-31.0 [place] [address]-03-10 14:37:00 Test Item Value Reference Range Interpretation Comments MCHC (test code = MCHC) 32.4 32.0-36.0 [place] [address]-03-10 14:37:00 Test Item Value Reference Range Interpretation Comments RDW (test code = RDW) 15.1 11.5-14.5 [place] [address]-03-10 14:37:00 Test Item Value Reference Range Interpretation Comments Platelet (test code = Platelet) 189 133-450 [place] 967413-03-10 14:37:00 Test Item Value Reference Range Interpretation Comments MPV (test code = MPV) 7.9 7.4-10.4 [place] [address]-03-10 14:37:00 Test Item Value Reference Range Interpretation Comments RBC (test code = RBC) 3.56 4.70-6.10 [place] [address]-03-10 14:37:00 Test Item Value Reference Range Interpretation Comments Hgb (test code = Hgb) 12.1 14.0-18.0 [place] [address]-03-10 14:37:00 Test Item Value Reference Range Interpretation Comments Hct (test code = Hct) 37.2 42.0-54.0 [place] [address]-03-10 14:37:00 Test Item Value Reference Range Interpretation Comments MCV (test code = MCV) 104.6 80.0-94.0 [place] [address]-03-10 14:37:00 Test Item Value Reference Range Interpretation Comments MCH (test code = MCH) 33.9 pg 27.0-31.0 [place] [address]-03-10 14:37:00 Test Item Value Reference Range Interpretation Comments MCHC (test code = MCHC) 32.4 32.0-36.0 [place] [address]-03-10 14:37:00 Test Item Value Reference Range Interpretation Comments RDW (test code = RDW) 15.1 11.5-14.5 [facility] TexasZftblmrGBFPWMAIZL6347-56-13 14:37:00 Test Item Value Reference Range Interpretation Comments Platelet (test code = Platelet) 189 133-450 [facility] TexasUegfgzfRDDZWWEHKR0447-30-41 14:37:00 Test Item Value Reference Range Interpretation Comments MPV (test code = MPV) 7.9 7.4-10.4 [place] [id number] 13:44:17 Test Item Value Reference Range Interpretation [...] placement. Matty Cote MD On 12/06/2022 07:43:05; [id number] [place] [id number] 13:44:17 Test Item Value Reference Range Interpretation [...] placement. Matty Cote MD On 12/06/2022 07:43:05; [id number] [facility]ZyqulkuCWXKEN7338-50-48 13:44:17 Test Item Value Reference Range Interpretation [...] placement. Matty Cote MD On 12/06/2022 07:43:05; [id number] [facility] SouthHwdnjyuHUYBWU3170-70-83 13:44:17 Test Item Value Reference Range Interpretation [...] placement. Matty Cote MD On 12/06/2022 07:43:05; [id number] [facility] SouthSymorzlTOOWSK9849-45-69 13:44:17 Test Item Value Reference Range Interpretation [...] placement. Matty Cote MD On 12/06/2022 07:43:05; [id number] [facility]2800[facility] 13:44:17 Test Item Value Reference Range Interpretation [...] placement. Matty Cote MD On 12/06/2022 07:43:05; [id number] [facility]PHAAJ5083[facility]75-51 18:34:00 Test Item Value Reference Range Interpretation Comments Coronavirus (COVID-19) Not Detected (12/05/22 CHUCKIE (test code = 12:34 PM) Coronavirus (COVID-19) CHUCKIE) [place] [address]-03-09 18:34:00 Test Item Value Reference Range Interpretation Comments Coronavirus (COVID-19) Not Detected (12/05/22 CHUCKIE (test code = 12:34 PM) Coronavirus (COVID-19) CHUCKIE) [place] [address]-03-09 18:34:00 Test Item Value Reference Range Interpretation Comments Coronavirus (COVID-19) Not Detected (12/05/22 CHUCKIE (test code = 12:34 PM) Coronavirus (COVID-19) CHUCKIE) [place] [address]-03-09 18:34:00 Test Item Value Reference Range Interpretation Comments Coronavirus (COVID-19) Not Detected (12/05/22 CHUCKIE (test code = 12:34 PM) Coronavirus (COVID-19) CHUCKIE) [place] [address]-03-09 18:34:00 Test Item Value Reference Range Interpretation Comments Coronavirus (COVID-19) Not Detected (12/05/22 CHUCKIE (test code = 12:34 PM) Coronavirus (COVID-19) CHUCKIE) [place] [address]-03-09 18:34:00 Test Item Value Reference Range Interpretation Comments Coronavirus (COVID-19) Not Detected (12/05/22 CHUCKIE (test code = 12:34 PM) Coronavirus (COVID-19) CHUCKIE) [place] [address]-03-09 18:34:00 Test Item Value Reference Range Interpretation Comments Coronavirus (COVID-19) Not Detected (12/05/22 CHUCKIE (test code = 12:34 PM) Coronavirus (COVID-19) CHUCKIE) [place] [address]-03-09 18:34:00 Test Item Value Reference Range Interpretation Comments Coronavirus (COVID-19) Not Detected (12/05/22 CHUCKIE (test code = 12:34 PM) Coronavirus (COVID-19) CHUCKIE) [place] [address]-03-09 18:34:00 Test Item Value Reference Range Interpretation Comments Coronavirus (COVID-19) Not Detected (12/05/22 CHUCKIE (test code = 12:34 PM) Coronavirus (COVID-19) CHUCKIE) [place] [address]-03-09 18:34:00 Test Item Value Reference Range Interpretation Comments Coronavirus (COVID-19) Not Detected (12/05/22 CHUCKIE (test code = 12:34 PM) Coronavirus (COVID-19) CHUCKIE) [place] 633313-03-09 18:34:00 Test Item Value Reference Range Interpretation Comments Coronavirus (COVID-19) Not Detected (12/05/22 CHUCKIE (test code = 12:34 PM) Coronavirus (COVID-19) CHUCKIE) [place] 633313-03-09 18:34:00 Test Item Value Reference Range Interpretation Comments Coronavirus (COVID-19) Not Detected (12/05/22 CHUCKIE (test code = 12:34 PM) Coronavirus (COVID-19) CHUCKIE) [place] [address]-03-08 23:51:00 Test Item Value Reference Range Interpretation Comments PT (test code = PT) 14.3 s 12.0-14.7 [place] [address]-03-08 23:51:00 Test Item Value Reference Range Interpretation Comments INR (test code = INR) 1.11 1 0.85-1.17 [place] [address]-03-08 23:51:00 Test Item Value Reference Range Interpretation Comments PTT (test code = PTT) 32.3 s 22.9-35.8 [place] [address]-03-08 23:51:00 Test Item Value Reference Range Interpretation Comments Segs (test code = Segs) 74.5 45.0-75.0 [place] [address]-03-08 23:51:00 Test Item Value Reference Range Interpretation Comments Lymphocytes (test code = Lymphocytes) 15.6 20.0-40.0 [place] [address]-03-08 23:51:00 Test Item Value Reference Range Interpretation Comments Monocytes (test code = Monocytes) 6.9 2.0-12.0 [place] [address]-03-08 23:51:00 Test Item Value Reference Range Interpretation Comments Eosinophils (test code = 2.3 See_Comment [A utomated message] The Eosinophils) system which ge nerated this result tra nsmitted reference range : <=4.0. The reference r jillian was not used to int erpret this result as normal/abnormal . [place] 967413-03-08 23:51:00 Test Item Value Reference Range Interpretation Comments Basophils (test code = 0.7 See_Comment [Aut omated message] The Basophils) system which ge nerated this result tra nsmitted reference range : <=1.0. The reference r jillian was not used to int erpret this result as normal/abnormal . [facility] TexasJjpwkguDWRUVXVVUF3744-09-71 23:51:00 Test Item Value Reference Range Interpretation Comments Neutrophils # (test code = Neutrophils 6.1 1.5-8.1 #) [facility] TexasEzzmioySNEVLRQBXC9639-87-45 23:51:00 Test Item Value Reference Range Interpretation Comments Lymphocytes # (test code = Lymphocytes 1.3 1.0-5.5 #) [place] 967413-03-08 23:51:00 Test Item Value Reference Range Interpretation Comments Monocytes # (test code 0.6 See_Comment [Aut omated message] The = Monocytes #) system which generated this result tra nsmitted reference range : <=0.8. The reference r jillian was not used to int erpret this result as normal/abnormal . [facility] TexasHuucuvcHTTQBXKLRO4169-75-41 23:51:00 Test Item Value Reference Range Interpretation Comments Eosinophils # (test code 0.2 See_Comment [A utomated message] The = Eosinophils #) system whic h generated this result tra nsmitted reference range : <=0.5. The reference r jillian was not used to int erpret this result as normal/abnormal . [facility] TexasGgrqjijQKZHCVQJUS1930-62-26 23:51:00 Test Item Value Reference Range Interpretation Comments Basophils # (test code 0.1 See_Comment [Aut omated message] The = Basophils #) system which generated this result tra nsmitted reference range : <=0.2. The reference r jillian was not used to int erpret this result as normal/abnormal . [place]67413-03-08 23:51:00 Test Item Value Reference Range Interpretation Comments Macrocyte (test code = 1+ *ABN*(12/04/22 5:51 Macrocyte) PM) [place] 967413-03-08 23:51:00 Test Item Value Reference Range Interpretation Comments PT (test code = PT) 14.3 s 12.0-14.7 [place] [address]-03-08 23:51:00 Test Item Value Reference Range Interpretation Comments INR (test code = INR) 1.11 1 0.85-1.17 [place] [address]-03-08 23:51:00 Test Item Value Reference Range Interpretation Comments PTT (test code = PTT) 32.3 s 22.9-35.8 [place] 967413-03-08 23:51:00 Test Item Value Reference Range Interpretation Comments Segs (test code = Segs) 74.5 45.0-75.0 [place] [address]-03-08 23:51:00 Test Item Value Reference Range Interpretation Comments Lymphocytes (test code = Lymphocytes) 15.6 20.0-40.0 [place] [address]-03-08 23:51:00 Test Item Value Reference Range Interpretation Comments Monocytes (test code = Monocytes) 6.9 2.0-12.0 [place] [address]-03-08 23:51:00 Test Item Value Reference Range Interpretation Comments Eosinophils (test code = Eosinophils) 2.3 <=4.0 [place] [address]-03-08 23:51:00 Test Item Value Reference Range Interpretation Comments Basophils (test code = Basophils) 0.7 <=1.0 [place] [address]-03-08 23:51:00 Test Item Value Reference Range Interpretation Comments Neutrophils # (test code = Neutrophils 6.1 1.5-8.1 #) [place] [address]-03-08 23:51:00 Test Item Value Reference Range Interpretation Comments Lymphocytes # (test code = Lymphocytes 1.3 1.0-5.5 #) [place] [address]-03-08 23:51:00 Test Item Value Reference Range Interpretation Comments Monocytes # (test code = Monocytes #) 0.6 <=0.8 [place] [address]-03-08 23:51:00 Test Item Value Reference Range Interpretation Comments Eosinophils # (test code = Eosinophils 0.2 <=0.5 #) [place] [address]-03-08 23:51:00 Test Item Value Reference Range Interpretation Comments Basophils # (test code = Basophils #) 0.1 <=0.2 [place] [address]-03-08 23:51:00 Test Item Value Reference Range Interpretation Comments Macrocyte (test code = 1+ *ABN*(3/8/23 5:51 Macrocyte) PM) [facility]XujjpbiCDHHERBIWN2371-86-46 23:51:00 Test Item Value Reference Range Interpretation Comments PT (test code = PT) 14.3 s 12.0-14.7 [place] 967413-03-08 23:51:00 Test Item Value Reference Range Interpretation Comments INR (test code = INR) 1.11 1 0.85-1.17 [place] 967413-03-08 23:51:00 Test Item Value Reference Range Interpretation Comments PTT (test code = PTT) 32.3 s 22.9-35.8 [place] [address]-03-08 23:51:00 Test Item Value Reference Range Interpretation Comments Segs (test code = Segs) 74.5 45.0-75.0 [place] [address]-03-08 23:51:00 Test Item Value Reference Range Interpretation Comments Lymphocytes (test code = Lymphocytes) 15.6 20.0-40.0 [place] 967413-03-08 23:51:00 Test Item Value Reference Range Interpretation Comments Monocytes (test code = Monocytes) 6.9 2.0-12.0 [place] 967413-03-08 23:51:00 Test Item Value Reference Range Interpretation Comments Eosinophils (test code = 2.3 See_Comment [A utomated message] The Eosinophils) system which ge nerated this result tra nsmitted reference range : <=4.0. The reference r jillian was not used to int erpret this result as normal/abnormal . [facility] TexasHajvjvdGYRRUXRZNE1182-53-36 23:51:00 Test Item Value Reference Range Interpretation Comments Basophils (test code = 0.7 See_Comment [Aut omated message] The Basophils) system which ge nerated this result tra nsmitted reference range : <=1.0. The reference r jillian was not used to int erpret this result as normal/abnormal . [facility] TexasGdxmiroDQURTPSJEW3050-79-61 23:51:00 Test Item Value Reference Range Interpretation Comments Neutrophils # (test code = Neutrophils 6.1 1.5-8.1 #) [facility] TexasAcgbintDNIGRHPCRH2864-00-84 23:51:00 Test Item Value Reference Range Interpretation Comments Lymphocytes # (test code = Lymphocytes 1.3 1.0-5.5 #) [place] [address]-03-08 23:51:00 Test Item Value Reference Range Interpretation Comments Monocytes # (test code 0.6 See_Comment [Aut omated message] The = Monocytes #) system which generated this result tra nsmitted reference range : <=0.8. The reference r jillian was not used to int erpret this result as normal/abnormal . [facility] TexasCtppwtdJRMJUTEPPC7387-96-41 23:51:00 Test Item Value Reference Range Interpretation Comments Eosinophils # (test code 0.2 See_Comment [A utomated message] The = Eosinophils #) system whic h generated this result tra nsmitted reference range : <=0.5. The reference r jillian was not used to int erpret this result as normal/abnormal . [facility] TexasImchqsvDDOOJFNDGQ8352-22-74 23:51:00 Test Item Value Reference Range Interpretation Comments Basophils # (test code 0.1 See_Comment [Aut omated message] The = Basophils #) system which generated this result tra nsmitted reference range : <=0.2. The reference r jillian was not used to int erpret this result as normal/abnormal . [facility] TexasOecjpljGFHIHQNEWD3658-87-51 23:51:00 Test Item Value Reference Range Interpretation Comments Macrocyte (test code = 1+ *ABN*(12/04/22 5:51 Macrocyte) PM) [place] [address]-03-08 23:51:00 Test Item Value Reference Range Interpretation Comments PT (test code = PT) 14.3 s 12.0-14.7 [place] 967413-03-08 23:51:00 Test Item Value Reference Range Interpretation Comments INR (test code = INR) 1.11 1 0.85-1.17 [place] [address]-03-08 23:51:00 Test Item Value Reference Range Interpretation Comments PTT (test code = PTT) 32.3 s 22.9-35.8 [place] [address]-03-08 23:51:00 Test Item Value Reference Range Interpretation Comments Segs (test code = Segs) 74.5 45.0-75.0 [place] [address]-03-08 23:51:00 Test Item Value Reference Range Interpretation Comments Lymphocytes (test code = Lymphocytes) 15.6 20.0-40.0 [place] [address]-03-08 23:51:00 Test Item Value Reference Range Interpretation Comments Monocytes (test code = Monocytes) 6.9 2.0-12.0 [place] [address]-03-08 23:51:00 Test Item Value Reference Range Interpretation Comments Eosinophils (test code = 2.3 See_Comment [A utomated message] The Eosinophils) system which ge nerated this result tra nsmitted reference range : <=4.0. The reference r jillian was not used to int erpret this result as normal/abnormal . [place] [address]-03-08 23:51:00 Test Item Value Reference Range Interpretation Comments Basophils (test code = 0.7 See_Comment [Aut omated message] The Basophils) system which ge nerated this result tra nsmitted reference range : <=1.0. The reference r jillian was not used to int erpret this result as normal/abnormal . [address]03-08 23:51:00 Test Item Value Reference Range Interpretation Comments Neutrophils # (test code = Neutrophils 6.1 1.5-8.1 #) [place] [address]-03-08 23:51:00 Test Item Value Reference Range Interpretation Comments Lymphocytes # (test code = Lymphocytes 1.3 1.0-5.5 #) [place] [address]-03-08 23:51:00 Test Item Value Reference Range Interpretation Comments Monocytes # (test code 0.6 See_Comment [Aut omated message] The = Monocytes #) system which generated this result tra nsmitted reference range : <=0.8. The reference r jillian was not used to int erpret this result as normal/abnormal . [place] [address]-03-08 23:51:00 Test Item Value Reference Range Interpretation Comments Eosinophils # (test code 0.2 See_Comment [A utomated message] The = Eosinophils #) system whic h generated this result tra nsmitted reference range : <=0.5. The reference r jillian was not used to int erpret this result as normal/abnormal . [place] [address]-03-08 23:51:00 Test Item Value Reference Range Interpretation Comments Basophils # (test code 0.1 See_Comment [Aut omated message] The = Basophils #) system which generated this result tra nsmitted reference range : <=0.2. The reference r jillian was not used to int erpret this result as normal/abnormal . [place] 967413-03-08 23:51:00 Test Item Value Reference Range Interpretation Comments Macrocyte (test code = 1+ *ABN*(12/04/22 5:51 Macrocyte) PM) [place] 967413-03-08 23:51:00 Test Item Value Reference Range Interpretation Comments PT (test code = PT) 14.3 s 12.0-14.7 [place] 967413-03-08 23:51:00 Test Item Value Reference Range Interpretation Comments INR (test code = INR) 1.11 1 0.85-1.17 [place] [address]-03-08 23:51:00 Test Item Value Reference Range Interpretation Comments PTT (test code = PTT) 32.3 s 22.9-35.8 [place] [address]-03-08 23:51:00 Test Item Value Reference Range Interpretation Comments Segs (test code = Segs) 74.5 45.0-75.0 [place] 967413-03-08 23:51:00 Test Item Value Reference Range Interpretation Comments Lymphocytes (test code = Lymphocytes) 15.6 20.0-40.0 [place] [address]-03-08 23:51:00 Test Item Value Reference Range Interpretation Comments Monocytes (test code = Monocytes) 6.9 2.0-12.0 [place] [address]-03-08 23:51:00 Test Item Value Reference Range Interpretation Comments Eosinophils (test code = 2.3 See_Comment [A utomated message] The Eosinophils) system which ge nerated this result tra nsmitted reference range : <=4.0. The reference r jillian was not used to int erpret this result as normal/abnormal . [place] 967413-03-08 23:51:00 Test Item Value Reference Range Interpretation Comments Basophils (test code = 0.7 See_Comment [Aut omated message] The Basophils) system which ge nerated this result tra nsmitted reference range : <=1.0. The reference r jillian was not used to int erpret this result as normal/abnormal . [place] 967413-03-08 23:51:00 Test Item Value Reference Range Interpretation Comments Neutrophils # (test code = Neutrophils 6.1 1.5-8.1 #) [facility]YwwvtmiBTESIRGEWK8210-48-83 23:51:00 Test Item Value Reference Range Interpretation Comments Lymphocytes # (test code = Lymphocytes 1.3 1.0-5.5 #) [place] 967413-03-08 23:51:00 Test Item Value Reference Range Interpretation Comments Monocytes # (test code 0.6 See_Comment [Aut omated message] The = Monocytes #) system which generated this result tra nsmitted reference range : <=0.8. The reference r jillian was not used to int erpret this result as normal/abnormal . [place] 967413-03-08 23:51:00 Test Item Value Reference Range Interpretation Comments Eosinophils # (test code 0.2 See_Comment [A utomated message] The = Eosinophils #) system whic h generated this result tra nsmitted reference range : <=0.5. The reference r jillian was not used to int erpret this result as normal/abnormal . [facility] TexasCbwjsmqKFOKXIYTMV3010-55-90 23:51:00 Test Item Value Reference Range Interpretation Comments Basophils # (test code 0.1 See_Comment [Aut omated message] The = Basophils #) system which generated this result tra nsmitted reference range : <=0.2. The reference r jillian was not used to int erpret this result as normal/abnormal . [facility]gwituwWMGIEOLCHD9362-90-33 23:51:00 Test Item Value Reference Range Interpretation Comments Macrocyte (test code = 1+ *ABN*(12/04/22 5:51 Macrocyte) PM) [place] 967413-03-08 23:51:00 Test Item Value Reference Range Interpretation Comments PT (test code = PT) 14.3 s 12.0-14.7 [place] [address]-03-08 23:51:00 Test Item Value Reference Range Interpretation Comments INR (test code = INR) 1.11 1 0.85-1.17 [place] [address]-03-08 23:51:00 Test Item Value Reference Range Interpretation Comments PTT (test code = PTT) 32.3 s 22.9-35.8 [place] [address]-03-08 23:51:00 Test Item Value Reference Range Interpretation Comments Segs (test code = Segs) 74.5 45.0-75.0 [place] 967413-03-08 23:51:00 Test Item Value Reference Range Interpretation Comments Lymphocytes (test code = Lymphocytes) 15.6 20.0-40.0 [place] [address]-03-08 23:51:00 Test Item Value Reference Range Interpretation Comments Monocytes (test code = Monocytes) 6.9 2.0-12.0 [place] 967413-03-08 23:51:00 Test Item Value Reference Range Interpretation Comments Eosinophils (test code = Eosinophils) 2.3 <=4.0 [place] [address]-03-08 23:51:00 Test Item Value Reference Range Interpretation Comments Basophils (test code = Basophils) 0.7 <=1.0 [place] 967413-03-08 23:51:00 Test Item Value Reference Range Interpretation Comments Neutrophils # (test code = Neutrophils 6.1 1.5-8.1 #) [facility]RosdywiNYNMNHMFMZ8926-20-28 23:51:00 Test Item Value Reference Range Interpretation Comments Lymphocytes # (test code = Lymphocytes 1.3 1.0-5.5 #) [facility]TtdcrlcLZQPMESWXI6176-81-07 23:51:00 Test Item Value Reference Range Interpretation Comments Monocytes # (test code = Monocytes #) 0.6 <=0.8 [facility] TexasRwbhzguEBDRAOTRAP4539-13-00 23:51:00 Test Item Value Reference Range Interpretation Comments Eosinophils # (test code = Eosinophils 0.2 <=0.5 #) [facility]MovnamtMFPDTGVELK0842-94-59 23:51:00 Test Item Value Reference Range Interpretation Comments Basophils # (test code = Basophils #) 0.1 <=0.2 [place] 967413-03-08 23:51:00 Test Item Value Reference Range Interpretation Comments Macrocyte (test code = 1+ *ABN*(12/04/22 5:51 Macrocyte) PM) [facility]MtlasrvFLBVRAWQXW9001-77-68 15:58:00 Test Item Value Reference Range Interpretation Comments Hep Bs Ag (test code Negative *NA*(12/04/22 = Hep Bs Ag) 9:58 AM) [facility] HospitalKxiluubARJEHZBZNI8225-83-71 15:58:00 Test Item Value Reference Range Interpretation Comments Hep Bs Ag (test code Negative *NA*(12/04/22 = Hep Bs Ag) 9:58 AM) [facility] HospitalUkrcomvQSHPZCIMAF8654-68-67 15:58:00 Test Item Value Reference Range Interpretation Comments Hep Bs Ag (test code Negative *NA*(12/04/22 = Hep Bs Ag) 9:58 AM) [facility] HospitalVhkfbilQCGXDZQINV9238-58-26 15:58:00 Test Item Value Reference Range Interpretation Comments Hep Bs Ag (test code Negative *NA*(12/04/22 = Hep Bs Ag) 9:58 AM) [facility] HospitalGgnxtivPWVURLHXVZ4731-56-98 15:58:00 Test Item Value Reference Range Interpretation Comments Hep Bs Ag (test code Negative *NA*(12/04/22 = Hep Bs Ag) 9:58 AM) [facility] HospitalRyjksovQCKSQTLXKA4063-41-66 15:58:00 Test Item Value Reference Range Interpretation Comments Hep Bs Ag (test code Negative *NA*(12/04/22 = Hep Bs Ag) 9:58 AM) [facility] HospitalFfwuzjfBPQXNGSNBR0204-44-90 15:58:00 Test Item Value Reference Range Interpretation Comments Hep Bs Ag (test code Negative *NA*(12/04/22 = Hep Bs Ag) 9:58 AM) [facility] HospitalSaewxftSOWWPGVWVL7511-17-32 15:58:00 Test Item Value Reference Range Interpretation Comments Hep Bs Ag (test code Negative *NA*(12/04/22 = Hep Bs Ag) 9:58 AM) [facility] HospitalBxigsqdLCXIVSKHQY0583-62-32 15:58:00 Test Item Value Reference Range Interpretation Comments Hep Bs Ag (test code Negative *NA*(12/04/22 = Hep Bs Ag) 9:58 AM) [facility] HospitalYnwctrnMVIRXNBTUE4034-89-40 15:58:00 Test Item Value Reference Range Interpretation Comments Hep Bs Ag (test code Negative *NA*(12/04/22 = Hep Bs Ag) 9:58 AM) [facility] HospitalAlcsntgIECVSASYYI6236-01-10 15:58:00 Test Item Value Reference Range Interpretation Comments Hep Bs Ag (test code Negative *NA*(12/04/22 = Hep Bs Ag) 9:58 AM) [facility] HospitalXrnlkliBYSEQKBMHL1062-30-88 15:58:00 Test Item Value Reference Range Interpretation Comments Hep Bs Ag (test code Negative *NA*(12/04/22 = Hep Bs Ag) 9:58 AM) [facility] HospitalMibuzz.tvSHRIN[facility] HOSPITALS FOR CHILDREN [id number] 15:42:00 Test Item Value Reference Range Interpretation Comments ABO/Rh (test code = ABO/Rh) O POS [facility] [id number] 15:42:00 Test Item Value Reference Range Interpretation Comments Antibody Scrn (test Negative (12/03/22 9:42 code = Antibody Scrn) AM) [facility] [id number] 15:42:00 Test Item Value Reference Range Interpretation Comments ABO/Rh (test code = ABO/Rh) O [facility] [id number] 15:42:00 Test Item Value Reference Range Interpretation Comments Antibody Scrn (test Negative (12/03/22 9:42 code = Antibody Scrn) AM) [facility] HospitalMibuzz.tvSHRINERS HOSPITALS FOR CHILDREN [id number] 15:42:00 Test Item Value Reference Range Interpretation Comments ABO/Rh (test code = ABO/Rh) O [facility] [id number] 15:42:00 Test Item Value Reference Range Interpretation Comments Antibody Scrn (test Negative (12/03/22 9:42 code = Antibody Scrn) AM) [facility] [employer] [id number] 15:42:00 Test Item Value Reference Range Interpretation Comments ABO/Rh (test code = ABO/Rh) [facility] [id number] 15:42:00 Test Item Value Reference Range Interpretation Comments Antibody Scrn (test Negative (12/03/22 9:42 code = Antibody Scrn) AM) [facility] [id number] 15:42:00 Test Item Value Reference Range Interpretation Comments ABO/Rh (test code = ABO/Rh) O [facility]Myche[facility] [id number] 15:42:00 Test Item Value Reference Range Interpretation Comments Antibody Scrn (test Negative (12/03/22 9:42 code = Antibody Scrn) AM) [facility] HospitalMibuzz.tvOWATONNA HOSPITAL Missionly [id number] 15:42:00 Test Item Value Reference Range Interpretation Comments ABO/Rh (test code = ABO/Rh) O [facility] [id number] 15:42:00 Test Item Value Reference Range Interpretation Comments Antibody Scrn (test Negative (12/03/22 9:42 code = Antibody Scrn) AM) [facility]ZdxyvdgSHKFEI6632-27-40 15:21:12 Test Item Value Reference Range Interpretation [...] vein outflow.Valentin Evans MD On 12/03/2022 09:19:45; [id number] [facility] CenterMzepcplSUDFJY3141-18-67 15:21:12 Test Item Value Reference Range Interpretation [...] vein outflow.Valentin Evans MD On 12/03/2022 09:19:45; [id number] [facility] SouthFfzudhsIFQVKP1580-87-72 15:21:12 Test Item Value Reference Range Interpretation [...] vein outflow.Valentin Evans MD On 12/03/2022 09:19:45; [id number] [facility] CenterPzfssqgNOZAPZ6237-09-08 15:21:12 Test Item Value Reference Range Interpretation [...] vein outflow.Valentin Evans MD On 12/03/2022 09:19:45; [id number] [facility] SouthNjtypcuIYGWCE4084-21-79 15:21:12 Test Item Value Reference Range Interpretation [...] vein outflow.Valentin Evans MD On 12/03/2022 09:19:45; [id number] [facility] CenterLenjjntJFMYDD4387-66-33 15:21:12 Test Item Value Reference Range Interpretation [...] vein outflow.Valentin Evans MD On 12/03/2022 09:19:45; [id number] [facility] CenterKnmzbhwSATNND3881-65-60 14:03:57 Test Item Value Reference Range Interpretation [...] process. Nigel Tsai MD On 12/03/2022 08:03:26; [id number] [facility] CenterCfkpujgXGCHVX3015-24-14 14:03:57 Test Item Value Reference Range Interpretation [...] process. Nigel Tsai MD On 12/03/2022 08:03:26; [id number] [facility] SouthOnbyatkHFPPOW9509-23-53 14:03:57 Test Item Value Reference Range Interpretation [...] process. Nigel Tsai MD On 12/03/2022 08:03:26; [id number] [facility] CenterMngysoqFYLMPJ7509-79-63 14:03:57 Test Item Value Reference Range Interpretation [...] process. Nigel Tsai MD On 12/03/2022 08:03:26; [id number] [facility] CenterAgapvcbKZOGRB9769-14-96 14:03:57 Test Item Value Reference Range Interpretation [...] process. Nigel Tsai MD On 12/03/2022 08:03:26; [id number] [facility] CenterAhdliswMQDACS2137-56-36 14:03:57 Test Item Value Reference Range Interpretation [...] process. Nigel Tsai MD On 12/03/2022 08:03:26; [id number] [facility] [employer] [id number] 13:03:00 Test Item Value Reference Range Interpretation Comments Total Protein (test code = Total 6.7 6.4-8.4 Protein) [facility] [employer] [id number] 13:03:00 Test Item Value Reference Range Interpretation Comments Albumin Lvl (test code = Albumin Lvl) 3.0 3.5-5.0 [facility] [employer] [id number] 13:03:00 Test Item Value Reference Range Interpretation Comments ALT (test code = ALT) 10 See_Comment [Auto mated message] The system which AFTER-MOUSE nerated this result transmit cruz reference range : <=65. The reference range was not used to interpr et this result as gee l/abnormal. [facility] [employer] [id number] 13:03:00 Test Item Value Reference Range Interpretation Comments AST (test code = AST) 5 See_Comment [Auto mated message] The system which AFTER-MOUSE nerated this result transmit cruz reference range : <=37. The reference range was not used to interpr et this result as gee l/abnormal. [facility] [employer] [id number] 13:03:00 Test Item Value Reference Range Interpretation Comments Alk Phos (test code = Alk Phos) 77 39-136 [facility]2023-03-07 13:03:00 Test Item Value Reference Range Interpretation Comments Bili Total (test code = Bili Total) 0.4 0.2-1.3 [place] 477493-03-07 13:03:00 Test Item Value Reference Range Interpretation Comments B/C Ratio (test code = B/C Ratio) 4 1 6-25 [place] [address]-03-07 13:03:00 Test Item Value Reference Range Interpretation Comments Globulin (test code = Globulin) 3.7 2.7-4.2 [place] [address]-03-07 13:03:00 Test Item Value Reference Range Interpretation Comments A/G Ratio (test code = A/G Ratio) 0.8 1 0.7-1.6 [place] [address]-03-07 13:03:00 Test Item Value Reference Range Interpretation Comments PT (test code = PT) 15.0 s 12.0-14.7 [place] [address]-03-07 13:03:00 Test Item Value Reference Range Interpretation Comments INR (test code = INR) 1.18 1 0.85-1.17 [place] [address]-03-07 13:03:00 Test Item Value Reference Range Interpretation Comments PTT (test code = PTT) 31.8 s 22.9-35.8 [place] [address]-03-07 13:03:00 Test Item Value Reference Range Interpretation Comments Eosinophils (test code = 2.4 See_Comment [A utomated message] The Eosinophils) system which ge nerated this result tra nsmitted reference range : <=4.0. The reference r jillian was not used to int erpret this result as normal/abnormal . [place] [address]-03-07 13:03:00 Test Item Value Reference Range Interpretation Comments Eosinophils # (test code 0.2 See_Comment [A utomated message] The = Eosinophils #) system whic h generated this result tra nsmitted reference range : <=0.5. The reference r jillian was not used to int erpret this result as normal/abnormal . [place] [address]-03-07 13:03:00 Test Item Value Reference Range Interpretation Comments Basophils # (test code 0.1 See_Comment [Aut omated message] The = Basophils #) system which generated this result tra nsmitted reference range : <=0.2. The reference r jillian was not used to int erpret this result as normal/abnormal . [facility] [employer] [id number] 13:03:00 Test Item Value Reference Range Interpretation Comments Total Protein (test code = Total 6.7 6.4-8.4 Protein) [facility] [employer] [id number] 13:03:00 Test Item Value Reference Range Interpretation Comments Albumin Lvl (test code = Albumin Lvl) 3.0 3.5-5.0 [facility] [employer] [id number] 13:03:00 Test Item Value Reference Range Interpretation Comments ALT (test code = ALT) 10 See_Comment [Auto mated message] The system which ge nerated this result transmit cruz reference range : <=65. The reference range was not used to interpr et this result as gee l/abnormal. [facility] [employer] [id number] 13:03:00 Test Item Value Reference Range Interpretation Comments AST (test code = AST) 5 See_Comment [Auto mated message] The system which ge nerated this result transmit cruz reference range : <=37. The reference range was not used to interpr et this result as gee l/abnormal. [facility] [employer] [id number] 13:03:00 Test Item Value Reference Range Interpretation Comments Alk Phos (test code = Alk Phos) 77 39-136 [facility] [employer] [id number] 13:03:00 Test Item Value Reference Range Interpretation Comments Bili Total (test code = Bili Total) 0.4 0.2-1.3 [facility] [employer] [id number] 13:03:00 Test Item Value Reference Range Interpretation Comments B/C Ratio (test code = B/C Ratio) 4 1 6-25 [facility] [employer]2023-03-07 13:03:00 Test Item Value Reference Range Interpretation Comments Globulin (test code = Globulin) 3.7 2.7-4.2 [facility] [employer]2023-03-07 13:03:00 Test Item Value Reference Range Interpretation Comments A/G Ratio (test code = A/G Ratio) 0.8 1 0.7-1.6 [place] 967413-03-07 13:03:00 Test Item Value Reference Range Interpretation Comments PT (test code = PT) 15.0 s 12.0-14.7 [facility]TibxymwJHALMWXALM7947-08-83 13:03:00 Test Item Value Reference Range Interpretation Comments INR (test code = INR) 1.18 1 0.85-1.17 [place] 967413-03-07 13:03:00 Test Item Value Reference Range Interpretation Comments PTT (test code = PTT) 31.8 s 22.9-35.8 [place] [address]-03-07 13:03:00 Test Item Value Reference Range Interpretation Comments Eosinophils (test code = 2.4 See_Comment [A utomated message] The Eosinophils) system which ge nerated this result tra nsmitted reference range : <=4.0. The reference r jillian was not used to int erpret this result as normal/abnormal . [facility] CenterChmguepGNXWYPKUXC8866-53-87 13:03:00 Test Item Value Reference Range Interpretation Comments Eosinophils # (test code 0.2 See_Comment [A utomated message] The = Eosinophils #) system whic h generated this result tra nsmitted reference range : <=0.5. The reference r jillian was not used to int erpret this result as normal/abnormal . [facility] CenterHbyqjpgDDFCECWLTD9520-25-86 13:03:00 Test Item Value Reference Range Interpretation Comments Basophils # (test code 0.1 See_Comment [Aut omated message] The = Basophils #) system which generated this result tra nsmitted reference range : <=0.2. The reference r jillian was not used to int erpret this result as normal/abnormal . [facility] [id number] 13:03:00 Test Item Value Reference Range Interpretation Comments Total Protein (test code = Total 6.7 6.4-8.4 Protein) [facility] [id number] 13:03:00 Test Item Value Reference Range Interpretation Comments Albumin Lvl (test code = Albumin Lvl) 3.0 3.5-5.0 [facility] [id number] 13:03:00 Test Item Value Reference Range Interpretation Comments ALT (test code = ALT) 10 See_Comment [Auto mated message] The system which ge nerated this result transmit cruz reference range : <=65. The reference range was not used to interpr et this result as gee l/abnormal. [facility] [employer] [id number] 13:03:00 Test Item Value Reference Range Interpretation Comments AST (test code = AST) 5 See_Comment [Auto mated message] The system which ge nerated this result transmit cruz reference range : <=37. The reference range was not used to interpr et this result as gee l/abnormal. [facility] [id number] 13:03:00 Test Item Value Reference Range Interpretation Comments Alk Phos (test code = Alk Phos) 77 39-136 [facility] [id number] 13:03:00 Test Item Value Reference Range Interpretation Comments Bili Total (test code = Bili Total) 0.4 0.2-1.3 [facility] [id number] 13:03:00 Test Item Value Reference Range Interpretation Comments B/C Ratio (test code = B/C Ratio) 4 1 6-25 [facility] [id number] 13:03:00 Test Item Value Reference Range Interpretation Comments Globulin (test code = Globulin) 3.7 2.7-4.2 [facility] [id number] 13:03:00 Test Item Value Reference Range Interpretation Comments A/G Ratio (test code = A/G Ratio) 0.8 1 0.7-1.6 [facility] CenterTguqhtyXPBGBCSDEW4589-31-01 13:03:00 Test Item Value Reference Range Interpretation Comments PT (test code = PT) 15.0 s 12.0-14.7 [facility] HospitalWuqxbcwEPPUOKHXWU5833-01-38 13:03:00 Test Item Value Reference Range Interpretation Comments INR (test code = INR) 1.18 1 0.85-1.17 [facility] HospitalHfxmvfgHRPWLSZTCT0574-04-07 13:03:00 Test Item Value Reference Range Interpretation Comments PTT (test code = PTT) 31.8 s 22.9-35.8 [place] [address]-03-07 13:03:00 Test Item Value Reference Range Interpretation Comments Eosinophils (test code = 2.4 See_Comment [A utomated message] The Eosinophils) system which ge nerated this result tra nsmitted reference range : <=4.0. The reference r jillian was not used to int erpret this result as normal/abnormal . [facility] CenterNouricuKXXLRJFPHN8625-43-77 13:03:00 Test Item Value Reference Range Interpretation Comments Eosinophils # (test code 0.2 See_Comment [A utomated message] The = Eosinophils #) system whic h generated this result tra nsmitted reference range : <=0.5. The reference r jillian was not used to int erpret this result as normal/abnormal . [facility] CenterArdbjalNQDQOSZXYJ5311-84-01 13:03:00 Test Item Value Reference Range Interpretation Comments Basophils # (test code 0.1 See_Comment [Aut omated message] The = Basophils #) system which generated this result tra nsmitted reference range : <=0.2. The reference r jillian was not used to int erpret this result as normal/abnormal . [facility] [employer] [id number] 13:03:00 Test Item Value Reference Range Interpretation Comments Total Protein (test code = Total 6.7 6.4-8.4 Protein) [facility] [id number] 13:03:00 Test Item Value Reference Range Interpretation Comments Albumin Lvl (test code = Albumin Lvl) 3.0 3.5-5.0 [facility] [id number] 13:03:00 Test Item Value Reference Range Interpretation Comments ALT (test code = ALT) 10 <=[address] [facility] [id number] 13:03:00 Test Item Value Reference Range Interpretation Comments AST (test code = AST) [address] <=37 [facility] [id number] 13:03:00 Test Item Value Reference Range Interpretation Comments Alk Phos (test code = Alk Phos) 77 39-136 [facility] [employer] [id number] 13:03:00 Test Item Value Reference Range Interpretation Comments Bili Total (test code = Bili Total) 0.4 0.2-1.3 [facility] [id number] 13:03:00 Test Item Value Reference Range Interpretation Comments B/C Ratio (test code = B/C Ratio) 4 1 6-25 [facility] [id number] 13:03:00 Test Item Value Reference Range Interpretation Comments Globulin (test code = Globulin) 3.7 2.7-4.2 [place] 477493-03-07 13:03:00 Test Item Value Reference Range Interpretation Comments A/G Ratio (test code = A/G Ratio) 0.8 1 0.7-1.6 [place] [address]-03-07 13:03:00 Test Item Value Reference Range Interpretation Comments PT (test code = PT) 15.0 s 12.0-14.7 [place] [address]-03-07 13:03:00 Test Item Value Reference Range Interpretation Comments INR (test code = INR) 1.18 1 0.85-1.17 [place] [address]-03-07 13:03:00 Test Item Value Reference Range Interpretation Comments PTT (test code = PTT) 31.8 s 22.9-35.8 [place] [address]-03-07 13:03:00 Test Item Value Reference Range Interpretation Comments Eosinophils (test code = Eosinophils) 2.4 <=4.0 [place] [address]-03-07 13:03:00 Test Item Value Reference Range Interpretation Comments Eosinophils # (test code = Eosinophils 0.2 <=0.5 #) [place] [address]-03-07 13:03:00 Test Item Value Reference Range Interpretation Comments Basophils # (test code = Basophils #) 0.1 <=0.2 [place] 477493-03-07 13:03:00 Test Item Value Reference Range Interpretation Comments Total Protein (test code = Total 6.7 6.4-8.4 Protein) [place] 477493-03-07 13:03:00 Test Item Value Reference Range Interpretation Comments Albumin Lvl (test code = Albumin Lvl) 3.0 3.5-5.0 [place] 477493-03-07 13:03:00 Test Item Value Reference Range Interpretation Comments ALT (test code = ALT) 10 See_Comment [Auto mated message] The system which ge nerated this result transmit cruz reference range : <=65. The reference range was not used to interpr et this result as gee l/abnormal. [place] 477493-03-07 13:03:00 Test Item Value Reference Range Interpretation Comments AST (test code = AST) 5 See_Comment [Auto mated message] The system which ge nerated this result transmit cruz reference range : <=37. The reference range was not used to interpr et this result as gee l/abnormal. [place] 477493-03-07 13:03:00 Test Item Value Reference Range Interpretation Comments Alk Phos (test code = Alk Phos) 77 39-136 [place] 477493-03-07 13:03:00 Test Item Value Reference Range Interpretation Comments Bili Total (test code = Bili Total) 0.4 0.2-1.3 [place] 477493-03-07 13:03:00 Test Item Value Reference Range Interpretation Comments B/C Ratio (test code = B/C Ratio) 4 1 6-25 [place] [address]-03-07 13:03:00 Test Item Value Reference Range Interpretation Comments Globulin (test code = Globulin) 3.7 2.7-4.2 [facility] HospitalMibuzz.tvCHERYL VILLE [id number] 13:03:00 Test Item Value Reference Range Interpretation Comments A/G Ratio (test code = A/G Ratio) 0.8 1 0.7-1.6 [place] [address]-03-07 13:03:00 Test Item Value Reference Range Interpretation Comments PT (test code = PT) 15.0 s 12.0-14.7 [place] [address]-03-07 13:03:00 Test Item Value Reference Range Interpretation Comments INR (test code = INR) 1.18 1 0.85-1.17 [place] [address]-03-07 13:03:00 Test Item Value Reference Range Interpretation Comments PTT (test code = PTT) 31.8 s 22.9-35.8 [place] [address]-03-07 13:03:00 Test Item Value Reference Range Interpretation Comments Eosinophils (test code = 2.4 See_Comment [A utomated message] The Eosinophils) system which ge nerated this result tra nsmitted reference range : <=4.0. The reference r jillian was not used to int erpret this result as normal/abnormal . [place] [address]-03-07 13:03:00 Test Item Value Reference Range Interpretation Comments Eosinophils # (test code 0.2 See_Comment [A utomated message] The = Eosinophils #) system whic h generated this result tra nsmitted reference range : <=0.5. The reference r jillian was not used to int erpret this result as normal/abnormal . [facility]ctxogbBYUZDGKRWK9859-56-02 13:03:00 Test Item Value Reference Range Interpretation Comments Basophils # (test code 0.1 See_Comment [Aut omated message] The = Basophils #) system which generated this result tra nsmitted reference range : <=0.2. The reference r jillian was not used to int erpret this result as normal/abnormal . [facility] [id number] 13:03:00 Test Item Value Reference Range Interpretation Comments Total Protein (test code = Total 6.7 6.4-8.4 Protein) [facility] [id number] 13:03:00 Test Item Value Reference Range Interpretation Comments Albumin Lvl (test code = Albumin Lvl) 3.0 3.5-5.0 [facility] [id number] 13:03:00 Test Item Value Reference Range Interpretation Comments ALT (test code = ALT) [address] <=65 [facility] [id number] 13:03:00 Test Item Value Reference Range Interpretation Comments AST (test code = AST) [address] [facility] [id number] 13:03:00 Test Item Value Reference Range Interpretation Comments Alk Phos (test code = Alk Phos) 77 39-136 [facility] [id number] 13:03:00 Test Item Value Reference Range Interpretation Comments Bili Total (test code = Bili Total) 0.4 0.2-1.3 [facility] [id number] 13:03:00 Test Item Value Reference Range Interpretation Comments B/C Ratio (test code = B/C Ratio) 4 1 6-25 [facility] [id number] 13:03:00 Test Item Value Reference Range Interpretation Comments Globulin (test code = Globulin) 3.7 2.7-4.2 [facility] [id number] 13:03:00 Test Item Value Reference Range Interpretation Comments A/G Ratio (test code = A/G Ratio) 0.8 1 0.7-1.6 [facility]UmvwcozMGSMEYFBRQ6393-00-51 13:03:00 Test Item Value Reference Range Interpretation Comments PT (test code = PT) 15.0 s 12.0-14.7 [facility]ved[facility]aeIEUAFDEUJC8727-14-42 13:03:00 Test Item Value Reference Range Interpretation Comments INR (test code = INR) 1.18 1 0.85-1.17 [facility] TexasDxhrlkmXZUNJBYYFJ0921-19-61 13:03:00 Test Item Value Reference Range Interpretation Comments PTT (test code = PTT) 31.8 s 22.9-35.8 [facility] TexasCyyovywLMDWDPPAWP2575-28-96 13:03:00 Test Item Value Reference Range Interpretation Comments Eosinophils (test code = Eosinophils) 2.4 <=4.0 [facility] TexasKntupcdZKHMAWGQNF3650-51-08 13:03:00 Test Item Value Reference Range Interpretation Comments Eosinophils # (test code = Eosinophils 0.2 <=0.5 #) [facility] TexasIdudvuiBSRRMLEIEZ9801-83-40 13:03:00 Test Item Value Reference Range Interpretation Comments Basophils # (test code = Basophils #) 0.1 <=0.2 [facility] METABOLIC PANEL (61864)2022-12-02 19:34:37 Test Item Value Reference Range Interpretation Comments NA (test code = 136 mmol/L 135-145 7608991449) K (test code = 4.6 mmol/L 3.5-5.0 7437262311) CL (test code = 101 mmol/L 98-108 9533972980) CO2 TOTAL (test code = 25 mmol/L 23-31 5684598134) AGAP (test code = 10 2-16 7597260685) BUN (test code = 33 mg/dL 7-23 H 4420049939) GLUCOSE (test code = 83 mg/dL 70-110 3948892826) CREATININE (test code = 8.36 mg/dL 0.60-1.25 H 4311788103) TOTAL BILI (test code = 0.6 mg/dL 0.1-1.5 3727671841) CALCIUM (test code = 8.2 mg/dL 8.6-10.6 L 9376662505) T PROTEIN (test code = 7.7 g/dL 6.3-8.2 3893758748) ALBUMIN (test code = 4.3 g/dL 3.5-5.0 8106681536) ALK PHOS (test code = 80 U/L 34-122 8476033286) ALTv (test code = 12 U/L 5-50 1742-6) AST(SGOT) (test code = 16 U/L 13-40 9931404981) eGFR (test code = 6.6 mL/min/1.73m2 8731673015) FILI (test code = FILI) Association of [...] tests). Lab Interpretation Abnormal (test code = 36338-8) [facility] [id number] 19:16:11 Test Item Value Reference Range Interpretation Comments APTT Patient (test 28 See_Comment [Automat ed code = 3173-2) message] The system which generated this result transmitted reference range : 23 - 38 Seconds . The reference range was not used to interpr et this result as normal/abnormal . FILI (test code = FILI) The [facility] patient population mean normal value for aPTT is 30 seconds. Lab Interpretation Normal (test code = 14551-9) [facility] CenterPROT[facility] / [id number] 19:14:13 Test Item Value Reference Range Interpretation [...] tions. Lab Interpretation (test Normal code = 31998-3) [facility] WITH [id number] 19:07:14 Test Item Value Reference Range Interpretation Comments WBC (test code = 7.95 See_Comment [Automated 5490-2) message] The sy stem which generated this [...] RDW-SD (test code = 50.5 fL 38.5-51.6 65732-7) RDW-CV (test code = 13.7 % 12.1-15.4 788-0) PLT (test code = 218 See_Comment [Automated 777-3) message] The sy stem which generated this result transmitted reference range : 150 - 328 10*3/ ?L. The reference r jillian was not used to interpret this result as normal/abnormal . MPV (test code = 10.1 fL 9.8-13.0 83241-6) NRBC/100 WBC (test 0.0 See_Comment [Automat ed code = 1455289832) message] The system which generated this result transmitted reference range : 0.0 - 10.0 /100 WBCs. The refer ence range was not u sed to interpret th is result as normal/abnormal . NRBC x10^3 (test code See_Comment [Auto mated = [id number]) message] The s ystem which generated this result transmitted reference range : 10*3/?L. The reference range was not used to interpret this result as normal/abnormal . GRAN MAT (NEUT) % 69.1 % (test code = 770-8) IMM GRAN % (test code 0.40 % = 7038440058) LYMPH % (test code = 20.0 % 736-9) MONO % (test code = 7.8 % 5905-5) EOS % (test code = 1.9 % 713-8) BASO % (test code = 0.8 % 706-2) GRAN MAT x10^3(ANC) 5.50 10*3/uL 1.99-6.95 (test code = 3773555149) IMM GRAN x10^3 (test 0.03 10*3/uL 0.00-0.06 code = 5567312907) LYMPH x10^3 (test code 1.59 10*3/uL 1.09-3.23 = 731-0) MONO x10^3 (test code 0.62 10*3/uL 0.36-1.02 = 742-7) EOS x10^3 (test code = 0.15 10*3/uL 0.06-0.53 711-2) BASO x10^3 (test code 0.06 10*3/uL 0.01-0.09 = 704-7) Lab Interpretation Abnormal (test code = 93311-7) [facility]CHE[facility] [id number] 19:17:00 Test Item Value Reference Range Interpretation Comments Glucose Lvl (test code = Glucose Lvl) 87 70-99 [facility]2019-11-21 19:17:00 Test Item Value Reference Range Interpretation Comments BUN (test code = BUN) 46 7-22 [facility]2019-11-21 19:17:00 Test Item Value Reference Range Interpretation Comments Creatinine Lvl (test code = Creatinine 11.10 0.50-1.40 Lvl) [facility]2019-11-21 19:17:00 Test Item Value Reference Range Interpretation Comments Sodium Lvl (test code = Sodium Lvl) 137 135-145 [facility]2019-11-21 19:17:00 Test Item Value Reference Range Interpretation Comments Potassium Lvl (test code = Potassium 3.8 3.5-5.1 Lvl) [facility]2019-11-21 19:17:00 Test Item Value Reference Range Interpretation Comments Chloride Lvl (test code = Chloride Lvl) 100 95-109 [facility]2019-11-21 19:17:00 Test Item Value Reference Range Interpretation Comments CO2 (test code = CO2) 27 24-32 [facility]2019-11-21 19:17:00 Test Item Value Reference Range Interpretation Comments Calcium Lvl (test code = Calcium Lvl) 8.9 8.5-10.5 [facility]2019-11-21 19:17:00 Test Item Value Reference Range Interpretation Comments Total Protein (test code = Total 8.4 6.4-8.4 Protein) [facility]2019-11-21 19:17:00 Test Item Value Reference Range Interpretation Comments Albumin Lvl (test code = Albumin Lvl) 3.7 3.5-5.0 [facility]2019-11-21 19:17:00 Test Item Value Reference Range Interpretation Comments ALT (test code = ALT) 15 See_Comment [Auto mated message] The system which ge nerated this result transmit cruz reference range : <=65. The reference range was not used to interpr et this result as gee l/abnormal. [place] 998089-11-21 19:17:00 Test Item Value Reference Range Interpretation Comments AST (test code = AST) 11 See_Comment [Auto mated message] The system which ge nerated this result transmit cruz reference range : <=37. The reference range was not used to interpr et this result as gee l/abnormal. [facility]2019-11-21 19:17:00 Test Item Value Reference Range Interpretation Comments Alk Phos (test code = Alk Phos) 80 39-136 [facility]2019-11-21 19:17:00 Test Item Value Reference Range Interpretation Comments Bili Total (test code = Bili Total) 0.4 0.2-1.3 [facility]2019-11-21 19:17:00 Test Item Value Reference Range Interpretation Comments eGFR (test code = eGFR) 5 [facility]2019-11-21 19:17:00 Test Item Value Reference Range Interpretation Comments AGAP (test code = AGAP) 13.8 10.0-20.0 [facility]2019-11-21 19:17:00 Test Item Value Reference Range Interpretation Comments B/C Ratio (test code = B/C Ratio) 4 1 6-25 [facility]2019-11-21 19:17:00 Test Item Value Reference Range Interpretation Comments Globulin (test code = Globulin) 4.7 2.7-4.2 [facility]2019-11-21 19:17:00 Test Item Value Reference Range Interpretation Comments A/G Ratio (test code = A/G Ratio) 0.8 1 0.7-1.6 [facility]ByiajumGOPPWOPVGB1355-76-60 19:17:00 Test Item Value Reference Range Interpretation Comments WBC (test code = WBC) 7.9 3.7-10.4 [facility] TexasKountezRZVYVKFVFK9338-48-65 19:17:00 Test Item Value Reference Range Interpretation Comments RBC (test code = RBC) 3.90 4.70-6.10 [facility] TexasDzhjcznYHBTDKUQBA5103-18-11 19:17:00 Test Item Value Reference Range Interpretation Comments Hgb (test code = Hgb) 13.3 14.0-18.0 [facility] TexasHaijkceFOITPAYKQN7517-08-09 19:17:00 Test Item Value Reference Range Interpretation Comments Hct (test code = Hct) 39.0 42.0-54.0 [facility] TexasMyhsgiqZVVHRSBVZW3872-84-04 19:17:00 Test Item Value Reference Range Interpretation Comments MCV (test code = MCV) 99.9 80.0-94.0 [place] 425579-11-21 19:17:00 Test Item Value Reference Range Interpretation Comments MCH (test code = MCH) 34.2 pg 27.0-31.0 [facility] TexasPxwaeuqMMKUEOKWMH7363-56-23 19:17:00 Test Item Value Reference Range Interpretation Comments MCHC (test code = MCHC) 34.2 32.0-36.0 [facility] TexasLbvowzvJUGHGTSTTT2924-88-56 19:17:00 Test Item Value Reference Range Interpretation Comments RDW (test code = RDW) 14.1 11.5-14.5 [facility] TexasOuhqvksQPAGBQYJRI0129-45-80 19:17:00 Test Item Value Reference Range Interpretation Comments Platelet (test code = Platelet) 251 133-450 [facility] TexasTlpvgbnLEIHSYCDLY2659-95-48 19:17:00 Test Item Value Reference Range Interpretation Comments MPV (test code = MPV) 8.8 7.4-10.4 [facility] TexasXfsvtryCZSLANVLOQ3572-52-73 19:17:00 Test Item Value Reference Range Interpretation Comments Segs (test code = Segs) 69.6 45.0-75.0 [facility] TexasJyvkyjdHMGZJLXXRF8287-73-11 19:17:00 Test Item Value Reference Range Interpretation Comments Lymphocytes (test code = Lymphocytes) 21.8 20.0-40.0 [facility] TexasFgncomiYCNFOSLRDX2627-86-47 19:17:00 Test Item Value Reference Range Interpretation Comments Monocytes (test code = Monocytes) 6.8 2.0-12.0 [facility] TexasIbjsfmeHGDPCJEELO7793-52-18 19:17:00 Test Item Value Reference Range Interpretation Comments Eosinophils (test code = 1.2 See_Comment [A utomated message] The Eosinophils) system which ge nerated this result tra nsmitted reference range : <=4.0. The reference r jillian was not used to int erpret this result as normal/abnormal . [facility] TexasNljmzgpLMTZWOYEFP9423-95-11 19:17:00 Test Item Value Reference Range Interpretation Comments Basophils (test code = 0.6 See_Comment [Aut omated message] The Basophils) system which ge nerated this result tra nsmitted reference range : <=1.0. The reference r jillian was not used to int erpret this result as normal/abnormal . [facility] TexasLogqxygFOHHKGNSUJ3684-78-15 19:17:00 Test Item Value Reference Range Interpretation Comments Neutrophils # (test code = Neutrophils 5.5 1.5-8.1 #) [facility] TexasBpofldnTKJXKULUYL8027-67-10 19:17:00 Test Item Value Reference Range Interpretation Comments Lymphocytes # (test code = Lymphocytes 1.7 1.0-5.5 #) [facility] TexasWnxcyvqLYLCBNNDKR7830-88-15 19:17:00 Test Item Value Reference Range Interpretation Comments Monocytes # (test code 0.5 See_Comment [Aut omated message] The = Monocytes #) system which generated this result tra nsmitted reference range : <=0.8. The reference r jillian was not used to int erpret this result as normal/abnormal . [facility] TexasGxkujuoPGSMWWNWRL8751-53-91 19:17:00 Test Item Value Reference Range Interpretation Comments Eosinophils # (test code 0.1 See_Comment [A utomated message] The = Eosinophils #) system whic h generated this result tra nsmitted reference range : <=0.5. The reference r jillian was not used to int erpret this result as normal/abnormal . [facility]PikarrgSXGAUTGVEJ8217-34-18 19:17:00 Test Item Value Reference Range Interpretation Comments Acetaminoph Lvl (test code (08/19/19 1:17 PM) 10-20 = Acetaminoph Lvl) [place] [id number] 19:17:00 Test Item Value Reference Range Interpretation Comments Ethanol Lvl (test code = Ethanol Lvl) no gt [place] [id number] 19:17:00 Test Item Value Reference Range Interpretation Comments Etoh (%) (test code = Etoh (%)) no gt [place] [id number] 19:17:00 Test Item Value Reference Range Interpretation Comments Salicylate Lvl (test no gt See_Comment [Autom ated message] The code = Salicylate Lvl) syste m which generated this result tra nsmitted reference range : <=30.0. The reference r jillian was not used to int erpret this result as normal/abnormal . [facility] [id number] 19:17:00 Test Item Value Reference Range Interpretation Comments Glucose Lvl (test code = Glucose Lvl) 87 70-99 [facility]2019-11-21 19:17:00 Test Item Value Reference Range Interpretation Comments BUN (test code = BUN) 46 7-22 [facility]2019-11-21 19:17:00 Test Item Value Reference Range Interpretation Comments Creatinine Lvl (test code = Creatinine 11.10 0.50-1.40 Lvl) [facility]2019-11-21 19:17:00 Test Item Value Reference Range Interpretation Comments Sodium Lvl (test code = Sodium Lvl) 137 135-145 [facility]2019-11-21 19:17:00 Test Item Value Reference Range Interpretation Comments Potassium Lvl (test code = Potassium 3.8 3.5-5.1 Lvl) [facility]2019-11-21 19:17:00 Test Item Value Reference Range Interpretation Comments Chloride Lvl (test code = Chloride Lvl) 100 95-109 [facility]2019-11-21 19:17:00 Test Item Value Reference Range Interpretation Comments CO2 (test code = CO2) 27 24-32 [facility]2019-11-21 19:17:00 Test Item Value Reference Range Interpretation Comments Calcium Lvl (test code = Calcium Lvl) 8.9 8.5-10.5 [facility]2019-11-21 19:17:00 Test Item Value Reference Range Interpretation Comments Total Protein (test code = Total 8.4 6.4-8.4 Protein) [facility]2019-11-21 19:17:00 Test Item Value Reference Range Interpretation Comments Albumin Lvl (test code = Albumin Lvl) 3.7 3.5-5.0 [facility]2019-11-21 19:17:00 Test Item Value Reference Range Interpretation Comments ALT (test code = ALT) 15 See_Comment [Auto mated message] The system which ge nerated this result transmit cruz reference range : <=65. The reference range was not used to interpr et this result as gee l/abnormal. [facility]2019-11-21 19:17:00 Test Item Value Reference Range Interpretation Comments AST (test code = AST) 11 See_Comment [Auto mated message] The system which ge nerated this result transmit cruz reference range : <=37. The reference range was not used to interpr et this result as gee l/abnormal. [facility]2019-11-21 19:17:00 Test Item Value Reference Range Interpretation Comments Alk Phos (test code = Alk Phos) 80 39-136 [facility]2019-11-21 19:17:00 Test Item Value Reference Range Interpretation Comments Bili Total (test code = Bili Total) 0.4 0.2-1.3 [facility]2019-11-21 19:17:00 Test Item Value Reference Range Interpretation Comments eGFR (test code = eGFR) 5 [facility]2019-11-21 19:17:00 Test Item Value Reference Range Interpretation Comments AGAP (test code = AGAP) 13.8 10.0-20.0 [facility]2019-11-21 19:17:00 Test Item Value Reference Range Interpretation Comments B/C Ratio (test code = B/C Ratio) 4 1 6-25 [facility]2019-11-21 19:17:00 Test Item Value Reference Range Interpretation Comments Globulin (test code = Globulin) 4.7 2.7-4.2 [facility]2019-11-21 19:17:00 Test Item Value Reference Range Interpretation Comments A/G Ratio (test code = A/G Ratio) 0.8 1 0.7-1.6 [facility] TexasMkumwtiHKTBAONCWW7833-53-53 19:17:00 Test Item Value Reference Range Interpretation Comments WBC (test code = WBC) 7.9 3.7-10.4 [facility] TexasUogcwjdBXYYTLJEWJ3541-24-96 19:17:00 Test Item Value Reference Range Interpretation Comments RBC (test code = RBC) 3.90 4.70-6.10 [facility] TexasSqigpngCSDOZYIWCY5167-57-41 19:17:00 Test Item Value Reference Range Interpretation Comments Hgb (test code = Hgb) 13.3 14.0-18.0 [facility] TexasRmbeymzUCCXHSECPK6748-83-17 19:17:00 Test Item Value Reference Range Interpretation Comments Hct (test code = Hct) 39.0 42.0-54.0 [facility] TexasJrfrgnsEHDDECOHGW5788-73-53 19:17:00 Test Item Value Reference Range Interpretation Comments MCV (test code = MCV) 99.9 80.0-94.0 [place] 425579-11-21 19:17:00 Test Item Value Reference Range Interpretation Comments MCH (test code = MCH) 34.2 pg 27.0-31.0 [facility] TexasSydqsbkHZYGXJHZSE2359-97-03 19:17:00 Test Item Value Reference Range Interpretation Comments MCHC (test code = MCHC) 34.2 32.0-36.0 [facility] TexasZkehtokNOBQAHAHJC8080-50-93 19:17:00 Test Item Value Reference Range Interpretation Comments RDW (test code = RDW) 14.1 11.5-14.5 [facility] TexasBardknuDHCDBWXMWR8963-16-86 19:17:00 Test Item Value Reference Range Interpretation Comments Platelet (test code = Platelet) 251 133-450 [facility] TexasWbvupfxERWVJUEAUY0108-26-02 19:17:00 Test Item Value Reference Range Interpretation Comments MPV (test code = MPV) 8.8 7.4-10.4 [facility] TexasVgtcwbcGHXZXOWGQA0990-41-16 19:17:00 Test Item Value Reference Range Interpretation Comments Segs (test code = Segs) 69.6 45.0-75.0 [facility] TexasXhtzsmhJWNWUDTXUZ5741-33-52 19:17:00 Test Item Value Reference Range Interpretation Comments Lymphocytes (test code = Lymphocytes) 21.8 20.0-40.0 [facility] TexasVvzbloaNOEWBRUDGG3918-61-39 19:17:00 Test Item Value Reference Range Interpretation Comments Monocytes (test code = Monocytes) 6.8 2.0-12.0 [facility] TexasSakorcjKFXKYKKNEC2029-20-78 19:17:00 Test Item Value Reference Range Interpretation Comments Eosinophils (test code = 1.2 See_Comment [A utomated message] The Eosinophils) system which ge nerated this result tra nsmitted reference range : <=4.0. The reference r jillian was not used to int erpret this result as normal/abnormal . [facility] TexasAtycpeoDMCYUBOTME7906-85-48 19:17:00 Test Item Value Reference Range Interpretation Comments Basophils (test code = 0.6 See_Comment [Aut omated message] The Basophils) system which ge nerated this result tra nsmitted reference range : <=1.0. The reference r jillian was not used to int erpret this result as normal/abnormal . [facility] TexasKlmxdfmQSFUGWWILK2804-96-91 19:17:00 Test Item Value Reference Range Interpretation Comments Neutrophils # (test code = Neutrophils 5.5 1.5-8.1 #) [facility] TexasLnpghfwEZTWWKVFWA7490-40-55 19:17:00 Test Item Value Reference Range Interpretation Comments Lymphocytes # (test code = Lymphocytes 1.7 1.0-5.5 #) [facility] TexasLlnsljxRQPHLJHQEK0215-75-82 19:17:00 Test Item Value Reference Range Interpretation Comments Monocytes # (test code 0.5 See_Comment [Aut omated message] The = Monocytes #) system which generated this result tra nsmitted reference range : <=0.8. The reference r jillian was not used to int erpret this result as normal/abnormal . [facility] TexasYkgwsjsUVHLMREVAU3221-91-59 19:17:00 Test Item Value Reference Range Interpretation Comments Eosinophils # (test code 0.1 See_Comment [A utomated message] The = Eosinophils #) system whic h generated this result tra nsmitted reference range : <=0.5. The reference r jillian was not used to int erpret this result as normal/abnormal . [place] 876669-11-21 19:17:00 Test Item Value Reference Range Interpretation Comments Acetaminoph Lvl (test code (08/19/19 1:17 PM) 10-20 = Acetaminoph Lvl) [place] 876669-11-21 19:17:00 Test Item Value Reference Range Interpretation Comments Ethanol Lvl (test code = Ethanol Lvl) no gt [place] [id number] 19:17:00 Test Item Value Reference Range Interpretation Comments Etoh (%) (test code = Etoh (%)) no gt [place] 51386019-11-21 19:17:00 Test Item Value Reference Range Interpretation Comments Salicylate Lvl (test no gt See_Comment [Autom ated message] The code = Salicylate Lvl) syste m which generated this result tra nsmitted reference range : <=30.0. The reference r jillian was not used to int erpret this result as normal/abnormal . [facility] [id number] 19:17:00 Test Item Value Reference Range Interpretation Comments Glucose Lvl (test code = Glucose Lvl) 87 70-99 [facility] [id number] 19:17:00 Test Item Value Reference Range Interpretation Comments BUN (test code = BUN) 46 7-22 [facility]2019-11-21 19:17:00 Test Item Value Reference Range Interpretation Comments Creatinine Lvl (test code = Creatinine 11.10 0.50-1.40 Lvl) [facility]2019-11-21 19:17:00 Test Item Value Reference Range Interpretation Comments Sodium Lvl (test code = Sodium Lvl) 137 135-145 [facility]2019-11-21 19:17:00 Test Item Value Reference Range Interpretation Comments Potassium Lvl (test code = Potassium 3.8 3.5-5.1 Lvl) [facility]2019-11-21 19:17:00 Test Item Value Reference Range Interpretation Comments Chloride Lvl (test code = Chloride Lvl) 100 95-109 [facility]2019-11-21 19:17:00 Test Item Value Reference Range Interpretation Comments CO2 (test code = CO2) 27 24-32 [facility]2019-11-21 19:17:00 Test Item Value Reference Range Interpretation Comments Calcium Lvl (test code = Calcium Lvl) 8.9 8.5-10.5 [facility]2019-11-21 19:17:00 Test Item Value Reference Range Interpretation Comments Total Protein (test code = Total 8.4 6.4-8.4 Protein) [facility]2019-11-21 19:17:00 Test Item Value Reference Range Interpretation Comments Albumin Lvl (test code = Albumin Lvl) 3.7 3.5-5.0 [facility]2019-11-21 19:17:00 Test Item Value Reference Range Interpretation Comments ALT (test code = ALT) 15 See_Comment [Auto mated message] The system which ge nerated this result transmit cruz reference range : <=65. The reference range was not used to interpr et this result as gee l/abnormal. [facility]2019-11-21 19:17:00 Test Item Value Reference Range Interpretation Comments AST (test code = AST) 11 See_Comment [Auto mated message] The system which ge nerated this result transmit cruz reference range : <=37. The reference range was not used to interpr et this result as gee l/abnormal. [facility]2019-11-21 19:17:00 Test Item Value Reference Range Interpretation Comments Alk Phos (test code = Alk Phos) 80 39-136 [facility]2019-11-21 19:17:00 Test Item Value Reference Range Interpretation Comments Bili Total (test code = Bili Total) 0.4 0.2-1.3 [facility]2019-11-21 19:17:00 Test Item Value Reference Range Interpretation Comments eGFR (test code = eGFR) 5 [facility]2019-11-21 19:17:00 Test Item Value Reference Range Interpretation Comments AGAP (test code = AGAP) 13.8 10.0-20.0 [facility]2019-11-21 19:17:00 Test Item Value Reference Range Interpretation Comments B/C Ratio (test code = B/C Ratio) 4 1 6-25 [facility]2019-11-21 19:17:00 Test Item Value Reference Range Interpretation Comments Globulin (test code = Globulin) 4.7 2.7-4.2 [facility]2019-11-21 19:17:00 Test Item Value Reference Range Interpretation Comments A/G Ratio (test code = A/G Ratio) 0.8 1 0.7-1.6 [facility]yaLJMCLQJIBC2157-76-33 19:17:00 Test Item Value Reference Range Interpretation Comments WBC (test code = WBC) 7.9 3.7-10.4 [facility]BrryqqoTGEBKAJIOQ5150-76-13 19:17:00 Test Item Value Reference Range Interpretation Comments RBC (test code = RBC) 3.90 4.70-6.10 [facility]VavqwojQJXVMNFKRF2872-55-54 19:17:00 Test Item Value Reference Range Interpretation Comments Hgb (test code = Hgb) 13.3 14.0-18.0 [facility] TexasBbnavrfIWDQXSCRAO9955-90-98 19:17:00 Test Item Value Reference Range Interpretation Comments Hct (test code = Hct) 39.0 42.0-54.0 [place] 425579-11-21 19:17:00 Test Item Value Reference Range Interpretation Comments MCV (test code = MCV) 99.9 80.0-94.0 [facility]NfjqrfmIMFANWEVWW9734-48-69 19:17:00 Test Item Value Reference Range Interpretation Comments MCH (test code = MCH) 34.2 pg 27.0-31.0 [facility] TexasKokedfqVYFNXVVPVG2215-00-78 19:17:00 Test Item Value Reference Range Interpretation Comments MCHC (test code = MCHC) 34.2 32.0-36.0 [facility]OttslksHGRARDOOCA2776-66-97 19:17:00 Test Item Value Reference Range Interpretation Comments RDW (test code = RDW) 14.1 11.5-14.5 [facility] TexasSieckftTNJPOQLAYO4478-97-29 19:17:00 Test Item Value Reference Range Interpretation Comments Platelet (test code = Platelet) 251 133-450 [facility] TexasRbyyvwcPWCPVRAOOL6776-76-33 19:17:00 Test Item Value Reference Range Interpretation Comments MPV (test code = MPV) 8.8 7.4-10.4 [facility] TexasZkxytwhTFSOCTPDOP5425-69-84 19:17:00 Test Item Value Reference Range Interpretation Comments Segs (test code = Segs) 69.6 45.0-75.0 [facility] TexasLytrbcwWSDVQOCTAE3736-30-98 19:17:00 Test Item Value Reference Range Interpretation Comments Lymphocytes (test code = Lymphocytes) 21.8 20.0-40.0 [facility] TexasTwkfqgxIMSZBYXWWO7037-32-58 19:17:00 Test Item Value Reference Range Interpretation Comments Monocytes (test code = Monocytes) 6.8 2.0-12.0 [facility] TexasFkbiixmABNYSKDJES5203-75-18 19:17:00 Test Item Value Reference Range Interpretation Comments Eosinophils (test code = 1.2 See_Comment [A utomated message] The Eosinophils) system which ge nerated this result tra nsmitted reference range : <=4.0. The reference r jillian was not used to int erpret this result as normal/abnormal . [facility] TexasTanvlhyGRSQLQQECG9606-46-07 19:17:00 Test Item Value Reference Range Interpretation Comments Basophils (test code = 0.6 See_Comment [Aut omated message] The Basophils) system which ge nerated this result tra nsmitted reference range : <=1.0. The reference r jillian was not used to int erpret this result as normal/abnormal . [facility] TexasHvlwxxhPUEOIAJJPO2674-92-79 19:17:00 Test Item Value Reference Range Interpretation Comments Neutrophils # (test code = Neutrophils 5.5 1.5-8.1 #) [facility] TexasBhnpswnSWNMKUEMPT8456-47-34 19:17:00 Test Item Value Reference Range Interpretation Comments Lymphocytes # (test code = Lymphocytes 1.7 1.0-5.5 #) [facility] TexasUecimakHARHDDXOYR5564-97-79 19:17:00 Test Item Value Reference Range Interpretation Comments Monocytes # (test code 0.5 See_Comment [Aut omated message] The = Monocytes #) system which generated this result tra nsmitted reference range : <=0.8. The reference r jillian was not used to int erpret this result as normal/abnormal . [facility] TexasOyahsydUVBPMFUPPQ4560-10-04 19:17:00 Test Item Value Reference Range Interpretation Comments Eosinophils # (test code 0.1 See_Comment [A utomated message] The = Eosinophils #) system whic h generated this result tra nsmitted reference range : <=0.5. The reference r jillian was not used to int erpret this result as normal/abnormal . [facility]woodAmrcczsRBLEXXKISD1299-12-89 19:17:00 Test Item Value Reference Range Interpretation Comments Acetaminoph Lvl (test code (08/19/19 1:17 PM) 10-20 = Acetaminoph Lvl) [place] [id number] 19:17:00 Test Item Value Reference Range Interpretation Comments Ethanol Lvl (test code = Ethanol Lvl) no gt [place] [id number] 19:17:00 Test Item Value Reference Range Interpretation Comments Etoh (%) (test code = Etoh (%)) no gt [place] [id number] 19:17:00 Test Item Value Reference Range Interpretation Comments Salicylate Lvl (test no gt See_Comment [Autom ated message] The code = Salicylate Lvl) syste m which generated this result tra nsmitted reference range : <=30.0. The reference r jillian was not used to int erpret this result as normal/abnormal . [facility] [id number] 19:17:00 Test Item Value Reference Range Interpretation Comments Glucose Lvl (test code = Glucose Lvl) 87 70-99 [facility] [id number] 19:17:00 Test Item Value Reference Range Interpretation Comments BUN (test code = BUN) 46 7-22 [facility]2019-11-21 19:17:00 Test Item Value Reference Range Interpretation Comments Creatinine Lvl (test code = Creatinine 11.10 0.50-1.40 Lvl) [facility]2019-11-21 19:17:00 Test Item Value Reference Range Interpretation Comments Sodium Lvl (test code = Sodium Lvl) 137 135-145 [facility]2019-11-21 19:17:00 Test Item Value Reference Range Interpretation Comments Potassium Lvl (test code = Potassium 3.8 3.5-5.1 Lvl) [facility]2019-11-21 19:17:00 Test Item Value Reference Range Interpretation Comments Chloride Lvl (test code = Chloride Lvl) 100 95-109 [facility]2019-11-21 19:17:00 Test Item Value Reference Range Interpretation Comments CO2 (test code = CO2) 27 24-32 [facility]2019-11-21 19:17:00 Test Item Value Reference Range Interpretation Comments Calcium Lvl (test code = Calcium Lvl) 8.9 8.5-10.5 [facility]2019-11-21 19:17:00 Test Item Value Reference Range Interpretation Comments Total Protein (test code = Total 8.4 6.4-8.4 Protein) [facility]2019-11-21 19:17:00 Test Item Value Reference Range Interpretation Comments Albumin Lvl (test code = Albumin Lvl) 3.7 3.5-5.0 [facility]2019-11-21 19:17:00 Test Item Value Reference Range Interpretation Comments ALT (test code = ALT) 15 <=65 [facility]2019-11-21 19:17:00 Test Item Value Reference Range Interpretation Comments AST (test code = AST) 11 <=37 [facility]2019-11-21 19:17:00 Test Item Value Reference Range Interpretation Comments Alk Phos (test code = Alk Phos) 80 39-136 [facility]2019-11-21 19:17:00 Test Item Value Reference Range Interpretation Comments Bili Total (test code = Bili Total) 0.4 0.2-1.3 [facility]2019-11-21 19:17:00 Test Item Value Reference Range Interpretation Comments eGFR (test code = eGFR) 5 [facility]2019-11-21 19:17:00 Test Item Value Reference Range Interpretation Comments AGAP (test code = AGAP) 13.8 10.0-20.0 [place] [id number] 19:17:00 Test Item Value Reference Range Interpretation Comments B/C Ratio (test code = B/C Ratio) 4 1 6-25 [facility]2019-11-21 19:17:00 Test Item Value Reference Range Interpretation Comments Globulin (test code = Globulin) 4.7 2.7-4.2 [facility]2019-11-21 19:17:00 Test Item Value Reference Range Interpretation Comments A/G Ratio (test code = A/G Ratio) 0.8 1 0.7-1.6 [facility]YqzqhisEKQIUUJWOD1113-34-25 19:17:00 Test Item Value Reference Range Interpretation Comments WBC (test code = WBC) 7.9 3.7-10.4 [facility] TexasZuuviorREOFAWPASY2575-90-73 19:17:00 Test Item Value Reference Range Interpretation Comments RBC (test code = RBC) 3.90 4.70-6.10 [facility] TexasTatbtrmOFYHTXHLCG5375-59-93 19:17:00 Test Item Value Reference Range Interpretation Comments Hgb (test code = Hgb) 13.3 14.0-18.0 [facility] TexasRwaxavnRVKHUIUAAK3942-29-19 19:17:00 Test Item Value Reference Range Interpretation Comments Hct (test code = Hct) 39.0 42.0-54.0 [facility] TexasXhxsjxnIAVHYWYDJN3401-19-07 19:17:00 Test Item Value Reference Range Interpretation Comments MCV (test code = MCV) 99.9 80.0-94.0 [facility] TexasHjlhpzlQUOGFVSVTG1603-01-32 19:17:00 Test Item Value Reference Range Interpretation Comments MCH (test code = MCH) 34.2 pg 27.0-31.0 [facility] TexasPknkuowGNYSOICURO9001-84-78 19:17:00 Test Item Value Reference Range Interpretation Comments MCHC (test code = MCHC) 34.2 32.0-36.0 [facility] TexasYchneafWBYPZTYFWY3577-45-56 19:17:00 Test Item Value Reference Range Interpretation Comments RDW (test code = RDW) 14.1 11.5-14.5 [facility] TexasJnbldiwKPGGFXHEEI1878-57-86 19:17:00 Test Item Value Reference Range Interpretation Comments Platelet (test code = Platelet) 251 618-450 [facility] TexasAiutwxnQYDVTRCXDM2623-58-24 19:17:00 Test Item Value Reference Range Interpretation Comments MPV (test code = MPV) 8.8 7.4-10.4 [facility] TexasVrabwmlOADSEFZELD4109-28-59 19:17:00 Test Item Value Reference Range Interpretation Comments Segs (test code = Segs) 69.6 45.0-75.0 [facility] TexasEivtutzUPFENNUCUI7333-52-40 19:17:00 Test Item Value Reference Range Interpretation Comments Lymphocytes (test code = Lymphocytes) 21.8 20.0-40.0 [facility] TexasKzunynoLECJPQIGXA8817-05-04 19:17:00 Test Item Value Reference Range Interpretation Comments Monocytes (test code = Monocytes) 6.8 2.0-12.0 [facility] TexasOtsimtpIFNVUZATBO7159-41-71 19:17:00 Test Item Value Reference Range Interpretation Comments Eosinophils (test code = Eosinophils) 1.2 <=4.0 [facility] TexasJbnyyvhOJXCMCATTI8564-67-74 19:17:00 Test Item Value Reference Range Interpretation Comments Basophils (test code = Basophils) 0.6 <=1.0 [facility] TexasQyiounzGONWNVUSQW4267-24-54 19:17:00 Test Item Value Reference Range Interpretation Comments Neutrophils # (test code = Neutrophils 5.5 1.5-8.1 #) [facility] TexasJzlyxfpXQYYWTISVU0855-02-68 19:17:00 Test Item Value Reference Range Interpretation Comments Lymphocytes # (test code = Lymphocytes 1.7 1.0-5.5 #) [facility] TexasCnkxkliJARXFUZRLK9487-80-62 19:17:00 Test Item Value Reference Range Interpretation Comments Monocytes # (test code = Monocytes #) 0.5 <=0.8 [facility] TexasUnitsjlVZHSIOGEEC1853-72-08 19:17:00 Test Item Value Reference Range Interpretation Comments Eosinophils # (test code = Eosinophils 0.1 <=0.5 #) [facility]QCQHALKYW9015[facility]-58 19:17:00 Test Item Value Reference Range Interpretation Comments Acetaminoph Lvl (test code (08/19/19 1:17 PM) 10-20 = Acetaminoph Lvl) [place] [id number] 19:17:00 Test Item Value Reference Range Interpretation Comments Ethanol Lvl (test code = Ethanol Lvl) no gt [place] [id number] 19:17:00 Test Item Value Reference Range Interpretation Comments Etoh (%) (test code = Etoh (%)) no gt [place] [id number] 19:17:00 Test Item Value Reference Range Interpretation Comments Salicylate Lvl (test code = Salicylate no gt <=30.0 Lvl) [facility]2019-11-21 19:17:00 Test Item Value Reference Range Interpretation Comments Glucose Lvl (test code = Glucose Lvl) 87 70-99 [facility]2019-11-21 19:17:00 Test Item Value Reference Range Interpretation Comments BUN (test code = BUN) 46 7-22 [facility]2019-11-21 19:17:00 Test Item Value Reference Range Interpretation Comments Creatinine Lvl (test code = Creatinine 11.10 0.50-1.40 Lvl) [facility]2019-11-21 19:17:00 Test Item Value Reference Range Interpretation Comments Sodium Lvl (test code = Sodium Lvl) 137 135-145 [facility]2019-11-21 19:17:00 Test Item Value Reference Range Interpretation Comments Potassium Lvl (test code = Potassium 3.8 3.5-5.1 Lvl) [facility]2019-11-21 19:17:00 Test Item Value Reference Range Interpretation Comments Chloride Lvl (test code = Chloride Lvl) 100 95-109 [facility]2019-11-21 19:17:00 Test Item Value Reference Range Interpretation Comments CO2 (test code = CO2) 27 24-32 [facility]2019-11-21 19:17:00 Test Item Value Reference Range Interpretation Comments Calcium Lvl (test code = Calcium Lvl) 8.9 8.5-10.5 [facility]2019-11-21 19:17:00 Test Item Value Reference Range Interpretation Comments Total Protein (test code = Total 8.4 6.4-8.4 Protein) [place] 998089-11-21 19:17:00 Test Item Value Reference Range Interpretation Comments Albumin Lvl (test code = Albumin Lvl) 3.7 3.5-5.0 [facility]2019-11-21 19:17:00 Test Item Value Reference Range Interpretation Comments ALT (test code = ALT) 15 See_Comment [Auto mated message] The system which ge nerated this result transmit cruz reference range : <=65. The reference range was not used to interpr et this result as gee l/abnormal. [facility]2019-11-21 19:17:00 Test Item Value Reference Range Interpretation Comments AST (test code = AST) 11 See_Comment [Auto mated message] The system which ge nerated this result transmit cruz reference range : <=37. The reference range was not used to interpr et this result as gee l/abnormal. [facility]2019-11-21 19:17:00 Test Item Value Reference Range Interpretation Comments Alk Phos (test code = Alk Phos) 80 39-136 [facility]2019-11-21 19:17:00 Test Item Value Reference Range Interpretation Comments Bili Total (test code = Bili Total) 0.4 0.2-1.3 [facility]2019-11-21 19:17:00 Test Item Value Reference Range Interpretation Comments eGFR (test code = eGFR) 5 [facility]2019-11-21 19:17:00 Test Item Value Reference Range Interpretation Comments AGAP (test code = AGAP) 13.8 10.0-20.0 [facility]2019-11-21 19:17:00 Test Item Value Reference Range Interpretation Comments B/C Ratio (test code = B/C Ratio) 4 1 6-25 [facility]2019-11-21 19:17:00 Test Item Value Reference Range Interpretation Comments Globulin (test code = Globulin) 4.7 2.7-4.2 [facility]2019-11-21 19:17:00 Test Item Value Reference Range Interpretation Comments A/G Ratio (test code = A/G Ratio) 0.8 1 0.7-1.6 [facility]RyxjvkgUNHRFSTPZL1773-32-43 19:17:00 Test Item Value Reference Range Interpretation Comments WBC (test code = WBC) 7.9 3.7-10.4 [facility] TexasFlpsimvXDRJCWEEZX4754-85-80 19:17:00 Test Item Value Reference Range Interpretation Comments RBC (test code = RBC) 3.90 4.70-6.10 [facility]JymtdmwBQBKMJVNFY6043-61-09 19:17:00 Test Item Value Reference Range Interpretation Comments Hgb (test code = Hgb) 13.3 14.0-18.0 [facility] TexasYhgtropTCBPGXRLHU1392-19-10 19:17:00 Test Item Value Reference Range Interpretation Comments Hct (test code = Hct) 39.0 42.0-54.0 [facility] TexasIirbcudYABAFVZIGX4085-12-49 19:17:00 Test Item Value Reference Range Interpretation Comments MCV (test code = MCV) 99.9 80.0-94.0 [facility]EvdgnbcWSYCIYAEEM5474-27-25 19:17:00 Test Item Value Reference Range Interpretation Comments MCH (test code = MCH) 34.2 pg 27.0-31.0 [facility] TexasUmmvxkgNTBIHEIASY9133-87-65 19:17:00 Test Item Value Reference Range Interpretation Comments MCHC (test code = MCHC) 34.2 32.0-36.0 [facility] TexasAoqveisWAMUJNFXTS9746-48-39 19:17:00 Test Item Value Reference Range Interpretation Comments RDW (test code = RDW) 14.1 11.5-14.5 [facility]XjdumppHMVBAFMUYI2921-05-03 19:17:00 Test Item Value Reference Range Interpretation Comments Platelet (test code = Platelet) 251 133-450 [facility] TexasFczvzlaEMTTLRPNSF1855-77-25 19:17:00 Test Item Value Reference Range Interpretation Comments MPV (test code = MPV) 8.8 7.4-10.4 [facility] TexasWrmguloUZAKAUSOZV3730-48-72 19:17:00 Test Item Value Reference Range Interpretation Comments Segs (test code = Segs) 69.6 45.0-75.0 [facility] TexasUwfjmstDFBVBGBYAX4349-29-95 19:17:00 Test Item Value Reference Range Interpretation Comments Lymphocytes (test code = Lymphocytes) 21.8 20.0-40.0 [facility] TexasJphsqtsCHMKKBISHF6130-51-79 19:17:00 Test Item Value Reference Range Interpretation Comments Monocytes (test code = Monocytes) 6.8 2.0-12.0 [facility] TexasSvbjspuSZBKHZLPRL6429-22-35 19:17:00 Test Item Value Reference Range Interpretation Comments Eosinophils (test code = 1.2 See_Comment [A utomated message] The Eosinophils) system which ge nerated this result tra nsmitted reference range : <=4.0. The reference r jillian was not used to int erpret this result as normal/abnormal . [facility] TexasQmxvhbwPGHFWWTNAP5639-84-81 19:17:00 Test Item Value Reference Range Interpretation Comments Basophils (test code = 0.6 See_Comment [Aut omated message] The Basophils) system which ge nerated this result tra nsmitted reference range : <=1.0. The reference r jillian was not used to int erpret this result as normal/abnormal . [facility] TexasUmkohnsINDCXZVJRT4923-62-30 19:17:00 Test Item Value Reference Range Interpretation Comments Neutrophils # (test code = Neutrophils 5.5 1.5-8.1 #) [facility]EihpapbZMBEXVGIOJ4722-51-70 19:17:00 Test Item Value Reference Range Interpretation Comments Lymphocytes # (test code = Lymphocytes 1.7 1.0-5.5 #) [facility] TexasDnmbsbbTVJBIOMVQW5634-87-85 19:17:00 Test Item Value Reference Range Interpretation Comments Monocytes # (test code 0.5 See_Comment [Aut omated message] The = Monocytes #) system which generated this result tra nsmitted reference range : <=0.8. The reference r jillian was not used to int erpret this result as normal/abnormal . [facility] TexasLfespisNECNHZKJPQ7201-41-90 19:17:00 Test Item Value Reference Range Interpretation Comments Eosinophils # (test code 0.1 See_Comment [A utomated message] The = Eosinophils #) system whic h generated this result tra nsmitted reference range : <=0.5. The reference r jillian was not used to int erpret this result as normal/abnormal . [place] [id number] 19:17:00 Test Item Value Reference Range Interpretation Comments Acetaminoph Lvl (test code (08/19/19 1:17 PM) 10-20 = Acetaminoph Lvl) [place] [id number] 19:17:00 Test Item Value Reference Range Interpretation Comments Ethanol Lvl (test code = Ethanol Lvl) no gt [facility]CddakhqVTDASHHWBB6450-88-02 19:17:00 Test Item Value Reference Range Interpretation Comments Etoh (%) (test code = Etoh (%)) no gt [facility]woodEvcdccoALGFKFWDSG3400-65-93 19:17:00 Test Item Value Reference Range Interpretation Comments Salicylate Lvl (test no gt See_Comment [Autom ated message] The code = Salicylate Lvl) syste m which generated this result tra nsmitted reference range : <=30.0. The reference r jillian was not used to int erpret this result as normal/abnormal . [facility] [id number] 19:17:00 Test Item Value Reference Range Interpretation Comments Glucose Lvl (test code = Glucose Lvl) 87 70-99 [facility] [id number] 19:17:00 Test Item Value Reference Range Interpretation Comments BUN (test code = BUN) 46 7-22 [facility] HospitalMibuzz.tvATRIUM HEALTH SOUTHPARKRAYWC2727-48-89 19:17:00 Test Item Value Reference Range Interpretation Comments Creatinine Lvl (test code = Creatinine 11.10 0.50-1.40 Lvl) [facility] Hospital[facility] [id number] 19:17:00 Test Item Value Reference Range Interpretation Comments Sodium Lvl (test code = Sodium Lvl) 137 135-145 [facility] [id number] 19:17:00 Test Item Value Reference Range Interpretation Comments Potassium Lvl (test code = Potassium 3.8 3.5-5.1 Lvl) [facility] [id number] 19:17:00 Test Item Value Reference Range Interpretation Comments Chloride Lvl (test code = Chloride Lvl) 100 95-109 [facility] [id number] 19:17:00 Test Item Value Reference Range Interpretation Comments CO2 (test code = CO2) 27 24-32 [facility] [id number] 19:17:00 Test Item Value Reference Range Interpretation Comments Calcium Lvl (test code = Calcium Lvl) 8.9 8.5-10.5 [facility] [id number] 19:17:00 Test Item Value Reference Range Interpretation Comments Total Protein (test code = Total 8.4 6.4-8.4 Protein) [facility] HospitalScionHealthSDXZZ0232-61-40 19:17:00 Test Item Value Reference Range Interpretation Comments Albumin Lvl (test code = Albumin Lvl) 3.7 3.5-5.0 [facility]2019-11-21 19:17:00 Test Item Value Reference Range Interpretation Comments ALT (test code = ALT) 15 <=65 [place] [id number] 19:17:00 Test Item Value Reference Range Interpretation Comments AST (test code = AST) 11 <=37 [place] 998089-11-21 19:17:00 Test Item Value Reference Range Interpretation Comments Alk Phos (test code = Alk Phos) 80 39-136 [facility]2019-11-21 19:17:00 Test Item Value Reference Range Interpretation Comments Bili Total (test code = Bili Total) 0.4 0.2-1.3 [place] [id number] 19:17:00 Test Item Value Reference Range Interpretation Comments eGFR (test code = eGFR) 5 [facility]2019-11-21 19:17:00 Test Item Value Reference Range Interpretation Comments AGAP (test code = AGAP) 13.8 10.0-20.0 [facility]2019-11-21 19:17:00 Test Item Value Reference Range Interpretation Comments B/C Ratio (test code = B/C Ratio) 4 1 6-25 [facility]2019-11-21 19:17:00 Test Item Value Reference Range Interpretation Comments Globulin (test code = Globulin) 4.7 2.7-4.2 [facility]2019-11-21 19:17:00 Test Item Value Reference Range Interpretation Comments A/G Ratio (test code = A/G Ratio) 0.8 1 0.7-1.6 [facility]JnqrbffBZDZOHAYKN2375-97-04 19:17:00 Test Item Value Reference Range Interpretation Comments WBC (test code = WBC) 7.9 3.7-10.4 [facility] TexasBacgnliQTDMNVFWAL3716-96-42 19:17:00 Test Item Value Reference Range Interpretation Comments RBC (test code = RBC) 3.90 4.70-6.10 [place] [id number] 19:17:00 Test Item Value Reference Range Interpretation Comments Hgb (test code = Hgb) 13.3 14.0-18.0 [facility] TexasOpcafctPHXRESCFUC9682-54-95 19:17:00 Test Item Value Reference Range Interpretation Comments Hct (test code = Hct) 39.0 42.0-54.0 [facility] TexasFvpjydaILEJUAHSCP0237-99-92 19:17:00 Test Item Value Reference Range Interpretation Comments MCV (test code = MCV) 99.9 80.0-94.0 [facility] TexasJmtzvcmSYJHSZPDRR3611-50-20 19:17:00 Test Item Value Reference Range Interpretation Comments MCH (test code = MCH) 34.2 pg 27.0-31.0 [facility] TexasCklgusqQTENBKOJHI1975-81-74 19:17:00 Test Item Value Reference Range Interpretation Comments MCHC (test code = MCHC) 34.2 32.0-36.0 [facility] TexasLotmkfwMPTKCKSDQZ4497-34-69 19:17:00 Test Item Value Reference Range Interpretation Comments RDW (test code = RDW) 14.1 11.5-14.5 [facility] TexasLyrnaklNRLQZBUGCK8770-44-76 19:17:00 Test Item Value Reference Range Interpretation Comments Platelet (test code = Platelet) 251 133-450 [facility] TexasSiuxdyeNHCAPMCLIB0754-27-18 19:17:00 Test Item Value Reference Range Interpretation Comments MPV (test code = MPV) 8.8 7.4-10.4 [facility] TexasZeamszhCHAFDBLEUN2871-29-66 19:17:00 Test Item Value Reference Range Interpretation Comments Segs (test code = Segs) 69.6 45.0-75.0 [facility] TexasLolsbmiIZKOEOYZAY7109-90-81 19:17:00 Test Item Value Reference Range Interpretation Comments Lymphocytes (test code = Lymphocytes) 21.8 20.0-40.0 [facility] TexasRtwqraiKAYHSZNMKV1735-93-55 19:17:00 Test Item Value Reference Range Interpretation Comments Monocytes (test code = Monocytes) 6.8 2.0-12.0 [facility] TexasOvoprfxAJEXKUSUEP5182-64-87 19:17:00 Test Item Value Reference Range Interpretation Comments Eosinophils (test code = Eosinophils) 1.2 <=4.0 [facility] TexasLxzcrliVWFZMRNATL2205-21-12 19:17:00 Test Item Value Reference Range Interpretation Comments Basophils (test code = Basophils) 0.6 <=1.0 [facility] TexasAhdgjnqREIGMWVRBT3444-97-55 19:17:00 Test Item Value Reference Range Interpretation Comments Neutrophils # (test code = Neutrophils 5.5 1.5-8.1 #) [facility]mapaGECFNXWHJI0943-46-43 19:17:00 Test Item Value Reference Range Interpretation Comments Lymphocytes # (test code = Lymphocytes 1.7 1.0-5.5 #) [facility] RegionUcsrmmzYMYPEPBMRZ4932-59-87 19:17:00 Test Item Value Reference Range Interpretation Comments Monocytes # (test code = Monocytes #) 0.5 <=0.8 [facility] RegionFrooqtgIWDSOUYGVD7126-87-19 19:17:00 Test Item Value Reference Range Interpretation Comments Eosinophils # (test code = Eosinophils 0.1 <=0.5 #) [facility]YmdyjvmLFDIQZYTJG8461-66-01 19:17:00 Test Item Value Reference Range Interpretation Comments Acetaminoph Lvl (test code (08/19/19 1:17 PM) 10-20 = Acetaminoph Lvl) [place] [id number] 19:17:00 Test Item Value Reference Range Interpretation Comments Ethanol Lvl (test code = Ethanol Lvl) no gt [facility] BrownwoodOohiamnQMCJGECGMS3067-97-77 19:17:00 Test Item Value Reference Range Interpretation Comments Etoh (%) (test code = Etoh (%)) no gt [facility] BrownwoodFuudojzYGLBQGQRMN1335-24-28 19:17:00 Test Item Value Reference Range Interpretation Comments Salicylate Lvl (test code = Salicylate no gt <=30.0 Lvl) [facility] GGKLAFA6337-83-55 08:55:00 Test Item Value Reference Range Interpretation Comments proBNP (test code = PBNP) 750 pg/mL 0-125 H COMPREHENSIVE METABOLIC [id number] 08:55:00 Test Item Value Reference Range Interpretation [...] (test code = 31A) 15 IU/L <=78 [id number] 08:55:00 Test Item Value Reference Range Interpretation Comments MAGNESIUM (test code = 48A) 2.6 mg/dL 1.8-2.4 H PHOSPHORUS (P04)2019-08-11 08:55:00 Test Item Value Reference Range Interpretation Comments PHOSPHORUS (test code = 43D) 7.8 mg/dL 2.7-4.6 H TROPONIN [id number] 08:50:00 Test Item Value Reference Range Interpretation Comments TROPONIN I (test code = A84) <0.015 ng/mL 0.000-0.045 PRO TIME AND [id number] 08:43:00 Test Item Value Reference Range Interpretation [...] Order Code is ANTI-XA CT HEAD W/O [id number] 08:36:37CT brain without contrastLocation code: [id number] HISTORY: Dizziness COMPARISON: 03/03/18TECHNIQUE:Routine unenhanced axial imaging [...] = RBCMOR) NORMAL XR CHEST 1 VIEW LIENSNLL0973-24-09 08:28:57Portable AP chest, 1 viewLocation Code: [id number] HISTORY: DizzinessCOMPARISON: 03/03/18COMMENT: The lungs are clear and well inflated. The costophrenic angles are sharp. Thecardiomediastinal silhouette is unremarkable. The bones are intact.IMPRESSION: Stable chest with no acute ucpkiluhoohMXMWBQWDQNKK9884-74-31 13:08:00 Test Item Value Reference Range Interpretation Comments AGAP (test code = AGAP) 19.3 10.0-20.0 [facility]HqznrdvHQWOQOBIXHZO9946-01-57 13:08:00 Test Item Value Reference Range Interpretation Comments eGFR (test code = eGFR) 7 [facility] CenterTeacwtmOCMWZCTPZTJK2761-38-71 13:08:00 Test Item Value Reference Range Interpretation Comments Calcium Lvl (test code = Calcium Lvl) 8.4 8.5-10.5 [facility] CenterLsbdbtlMIHFAPWZFQHD5692-99-00 13:08:00 Test Item Value Reference Range Interpretation Comments CO2 (test code = CO2) 24 24-32 [facility] CenterGpaiwrfAOIVUFCGZNTX4828-76-73 13:08:00 Test Item Value Reference Range Interpretation Comments Chloride Lvl (test code = Chloride Lvl) 97 95-109 [facility] CenterAlywayoKZLTBLIFBWMN8392-98-67 13:08:00 Test Item Value Reference Range Interpretation Comments Potassium Lvl (test code = Potassium 5.3 3.5-5.1 Lvl) [facility] CenterWxeuoecHFYZDPUIRYBG6605-84-43 13:08:00 Test Item Value Reference Range Interpretation Comments BUN (test code = BUN) 39 7-22 [facility] CenterQmshgdxUHOGRFDMZHGX1469-62-84 13:08:00 Test Item Value Reference Range Interpretation Comments Creatinine Lvl (test code = Creatinine 7.58 0.50-1.40 Lvl) [facility] CenterNxmjagmKGFNGAAMYZLG2915-39-75 13:08:00 Test Item Value Reference Range Interpretation Comments Sodium Lvl (test code = Sodium Lvl) 135 135-145 [facility] CenterHijvkzaMBUHGFGOGSYI3231-63-26 13:08:00 Test Item Value Reference Range Interpretation Comments Glucose Lvl (test code = Glucose Lvl) 87 70-99 [facility]ClvsjgvGTEBYCYJQF9645-78-07 13:08:00 Test Item Value Reference Range Interpretation Comments RDW (test code = RDW) 16.5 11.5-14.5 [facility] TexasFfhponjUEUGCRRRMK7097-39-33 13:08:00 Test Item Value Reference Range Interpretation Comments MCHC (test code = MCHC) 33.7 32.0-36.0 [facility] TexasAqujdsaJZNVVZDAFZ5202-17-89 13:08:00 Test Item Value Reference Range Interpretation Comments MCH (test code = MCH) 33.7 pg 27.0-31.0 [facility] TexasFocrqxgURLDDEJWQE6430-52-12 13:08:00 Test Item Value Reference Range Interpretation Comments MCV (test code = MCV) 100.0 80.0-94.0 [facility] TexasGdstewlPEXCXXVEQI2199-80-56 13:08:00 Test Item Value Reference Range Interpretation Comments Hct (test code = Hct) 39.7 42.0-54.0 [facility] TexasZkwyvdnMBQJMSTSHK5713-12-70 13:08:00 Test Item Value Reference Range Interpretation Comments Hgb (test code = Hgb) 13.4 14.0-18.0 [facility] TexasPbxaqxoYHAYINUMPZ1582-59-90 13:08:00 Test Item Value Reference Range Interpretation Comments RBC (test code = RBC) 3.97 4.70-6.10 [facility] TexasNbtpygaZWWVLDHQRH4326-18-34 13:08:00 Test Item Value Reference Range Interpretation Comments WBC (test code = WBC) 8.8 3.7-10.4 [facility] TexasAoyuzdyUZVPMQWMQC5348-59-23 13:08:00 Test Item Value Reference Range Interpretation Comments MPV (test code = MPV) 7.7 7.4-10.4 [facility] TexasKgnqxneBZIWJARMVP4272-07-27 13:08:00 Test Item Value Reference Range Interpretation Comments Platelet (test code = Platelet) 324 133-450 [facility] CenterHvoraiiMOQZAWLWCOKR4580-19-52 13:08:00 Test Item Value Reference Range Interpretation Comments AGAP (test code = AGAP) 19.3 10.0-20.0 [facility] CenterRydtxpbFFFFACHMBMZO4613-41-85 13:08:00 Test Item Value Reference Range Interpretation Comments eGFR (test code = eGFR) 7 [facility] CenterZdlpqjmBZTNMTSYMJDH2570-24-79 13:08:00 Test Item Value Reference Range Interpretation Comments Calcium Lvl (test code = Calcium Lvl) 8.4 8.5-10.5 [facility] CenterQogoyhrTFBESZMYZMQY7572-35-43 13:08:00 Test Item Value Reference Range Interpretation Comments CO2 (test code = CO2) 24 24-32 [facility] CenterKgtwjleIITILGDPFYUC0979-00-34 13:08:00 Test Item Value Reference Range Interpretation Comments Chloride Lvl (test code = Chloride Lvl) 97 95-109 [facility] CenterEoejgapXILRQKELQDJQ8919-43-56 13:08:00 Test Item Value Reference Range Interpretation Comments Potassium Lvl (test code = Potassium 5.3 3.5-5.1 Lvl) [facility] CenterJkscbdrVKDLQYRRNHWK3175-68-73 13:08:00 Test Item Value Reference Range Interpretation Comments BUN (test code = BUN) 39 7-22 [facility] CenterYocgbemKLKSWQCVGMXY8364-10-28 13:08:00 Test Item Value Reference Range Interpretation Comments Creatinine Lvl (test code = Creatinine 7.58 0.50-1.40 Lvl) [facility] CenterNaluidmVWCNHBHVOGCI7289-49-64 13:08:00 Test Item Value Reference Range Interpretation Comments Sodium Lvl (test code = Sodium Lvl) 135 135-145 [facility] CenterAllfbsfYLNSIXJXLUGS1704-75-86 13:08:00 Test Item Value Reference Range Interpretation Comments Glucose Lvl (test code = Glucose Lvl) 87 70-99 [facility] TexasDfkzngzHIPBHQHODD8827-21-54 13:08:00 Test Item Value Reference Range Interpretation Comments RDW (test code = RDW) 16.5 11.5-14.5 [facility] TexasQuzcrxxRFBNEGNQQV7009-17-20 13:08:00 Test Item Value Reference Range Interpretation Comments MCHC (test code = MCHC) 33.7 32.0-36.0 [facility] TexasAxojbcoLZMZIDGBBO5818-46-31 13:08:00 Test Item Value Reference Range Interpretation Comments MCH (test code = MCH) 33.7 pg 27.0-31.0 [facility] TexasYfqgxwoVCBJXJMXBA8848-17-90 13:08:00 Test Item Value Reference Range Interpretation Comments MCV (test code = MCV) 100.0 80.0-94.0 [facility] TexasQcygiumCOWJOVHOBG2076-28-68 13:08:00 Test Item Value Reference Range Interpretation Comments Hct (test code = Hct) 39.7 42.0-54.0 [facility] TexasUptkivcEUINWPBKKS2473-28-95 13:08:00 Test Item Value Reference Range Interpretation Comments Hgb (test code = Hgb) 13.4 14.0-18.0 [facility] TexasCsbtazzYTDMSROJQB9768-47-96 13:08:00 Test Item Value Reference Range Interpretation Comments RBC (test code = RBC) 3.97 4.70-6.10 [facility] TexasHjytndcYNPRHUUVVB4590-50-58 13:08:00 Test Item Value Reference Range Interpretation Comments WBC (test code = WBC) 8.8 3.7-10.4 [facility] TexasQzwtekqABGBLIKNKD1551-82-70 13:08:00 Test Item Value Reference Range Interpretation Comments MPV (test code = MPV) 7.7 7.4-10.4 [facility] TexasDcdffzgCFOUEGQXPU5379-21-89 13:08:00 Test Item Value Reference Range Interpretation Comments Platelet (test code = Platelet) 324 133-450 [facility] CenterSqcedoiSTIGGTDCPDYT5754-67-99 13:08:00 Test Item Value Reference Range Interpretation Comments AGAP (test code = AGAP) 19.3 10.0-20.0 [facility] CenterVfeiwckXEOUVVWHYJTK6105-24-49 13:08:00 Test Item Value Reference Range Interpretation Comments eGFR (test code = eGFR) 7 [facility] CenterDoovpojSMPCCQMUAGQG0401-44-09 13:08:00 Test Item Value Reference Range Interpretation Comments Calcium Lvl (test code = Calcium Lvl) 8.4 8.5-10.5 [facility] CenterLpgjhktHHYLTJFYRAVR0281-29-21 13:08:00 Test Item Value Reference Range Interpretation Comments CO2 (test code = CO2) 24 24-32 [facility] CenterMyrqysaCVETEAANKVHL7476-35-58 13:08:00 Test Item Value Reference Range Interpretation Comments Chloride Lvl (test code = Chloride Lvl) 97 95-109 [facility] CenterJgzcferPOBPZUVZQCDQ3572-42-08 13:08:00 Test Item Value Reference Range Interpretation Comments Potassium Lvl (test code = Potassium 5.3 3.5-5.1 Lvl) [facility] CenterQzjzavlEJFRCHARZDCH5049-77-16 13:08:00 Test Item Value Reference Range Interpretation Comments BUN (test code = BUN) 39 7-22 [facility] CenterDeaxvyfRELEKVYUVBKW3389-26-60 13:08:00 Test Item Value Reference Range Interpretation Comments Creatinine Lvl (test code = Creatinine 7.58 0.50-1.40 Lvl) [facility] CenterJspiwpjFGKNASILJWTN8088-79-10 13:08:00 Test Item Value Reference Range Interpretation Comments Sodium Lvl (test code = Sodium Lvl) 135 135-145 [facility] CenterHtxiybjDAKDVDZAOXLI7498-55-47 13:08:00 Test Item Value Reference Range Interpretation Comments Glucose Lvl (test code = Glucose Lvl) 87 70-99 [facility] TexasQpnazegHTNGMPEUKX9564-59-73 13:08:00 Test Item Value Reference Range Interpretation Comments RDW (test code = RDW) 16.5 11.5-14.5 [facility] TexasFswoeuxXPIYLRHREA4050-95-10 13:08:00 Test Item Value Reference Range Interpretation Comments MCHC (test code = MCHC) 33.7 32.0-36.0 [facility] TexasZodkmjkZVNKMBDNFO0192-43-75 13:08:00 Test Item Value Reference Range Interpretation Comments MCH (test code = MCH) 33.7 pg 27.0-31.0 [facility] TexasLwpkbjvZTQOHDFJGO6109-65-50 13:08:00 Test Item Value Reference Range Interpretation Comments MCV (test code = MCV) 100.0 80.0-94.0 [facility] TexasMpvvnboGKDBDREFNQ6502-78-33 13:08:00 Test Item Value Reference Range Interpretation Comments Hct (test code = Hct) 39.7 42.0-54.0 [facility] TexasBnyehcnLMRDDUEDFC9190-51-88 13:08:00 Test Item Value Reference Range Interpretation Comments Hgb (test code = Hgb) 13.4 14.0-18.0 [facility]QgnaymePQVJORLTVL4865-88-00 13:08:00 Test Item Value Reference Range Interpretation Comments RBC (test code = RBC) 3.97 4.70-6.10 [facility] TexasShsdarjDVEUEFZKFF4951-00-64 13:08:00 Test Item Value Reference Range Interpretation Comments WBC (test code = WBC) 8.8 3.7-10.4 [facility] TexasZokuftjPUEVKIHGHT7903-28-34 13:08:00 Test Item Value Reference Range Interpretation Comments MPV (test code = MPV) 7.7 7.4-10.4 [facility] TexasDmwmiexBCCBXINHIB9302-45-76 13:08:00 Test Item Value Reference Range Interpretation Comments Platelet (test code = Platelet) 324 133-450 [facility] CenterAfndymhFYHOGXKOWYXC5765-78-66 13:08:00 Test Item Value Reference Range Interpretation Comments AGAP (test code = AGAP) 19.3 10.0-20.0 [facility] CenterYskdpckBMTJYMFUJXXB7807-06-11 13:08:00 Test Item Value Reference Range Interpretation Comments eGFR (test code = eGFR) 7 [facility] CenterXlvnrhxYQTAMJFQMPSC5150-50-81 13:08:00 Test Item Value Reference Range Interpretation Comments Calcium Lvl (test code = Calcium Lvl) 8.4 8.5-10.5 [facility] CenterUakfzudXDDRULMMDLOG6839-61-12 13:08:00 Test Item Value Reference Range Interpretation Comments CO2 (test code = CO2) 24 24-32 [facility] CenterTnoepqwIYRENRZAIKZT8189-39-42 13:08:00 Test Item Value Reference Range Interpretation Comments Chloride Lvl (test code = Chloride Lvl) 97 95-109 [facility] CenterXyuwqjvDCBGMMNZPTSQ9636-35-62 13:08:00 Test Item Value Reference Range Interpretation Comments Potassium Lvl (test code = Potassium 5.3 3.5-5.1 Lvl) [facility] CenterRtllglgEHDIPLPLYVVK0615-60-93 13:08:00 Test Item Value Reference Range Interpretation Comments BUN (test code = BUN) 39 7-22 [facility] CenterLcdukgiUEPMDSQFFHXF4312-22-44 13:08:00 Test Item Value Reference Range Interpretation Comments Creatinine Lvl (test code = Creatinine 7.58 0.50-1.40 Lvl) [facility] CenterKxbbjndFNOHASQCKZVZ0688-12-12 13:08:00 Test Item Value Reference Range Interpretation Comments Sodium Lvl (test code = Sodium Lvl) 135 135-145 [facility] CenterVnubielROHUPUXLTBQZ2797-88-89 13:08:00 Test Item Value Reference Range Interpretation Comments Glucose Lvl (test code = Glucose Lvl) 87 70-99 [facility] TexasAzbukklFRWIUPUDFM3721-08-07 13:08:00 Test Item Value Reference Range Interpretation Comments RDW (test code = RDW) 16.5 11.5-14.5 [facility] TexasNdhiycwQTARKAUHXL8921-16-35 13:08:00 Test Item Value Reference Range Interpretation Comments MCHC (test code = MCHC) 33.7 32.0-36.0 [facility] TexasOttpevtKCGJYWCLOU7519-77-80 13:08:00 Test Item Value Reference Range Interpretation Comments MCH (test code = MCH) 33.7 pg 27.0-31.0 [facility] TexasNwyseguYOEVXMRPDG8392-64-26 13:08:00 Test Item Value Reference Range Interpretation Comments MCV (test code = MCV) 100.0 80.0-94.0 [facility] TexasAbskuxwKQBLXJCZYM5382-52-99 13:08:00 Test Item Value Reference Range Interpretation Comments Hct (test code = Hct) 39.7 42.0-54.0 [facility] TexasJkxbffuBYYKFBTNYS1861-42-58 13:08:00 Test Item Value Reference Range Interpretation Comments Hgb (test code = Hgb) 13.4 14.0-18.0 [facility] TexasSxwmgwzOMCODUAMVS1491-75-82 13:08:00 Test Item Value Reference Range Interpretation Comments RBC (test code = RBC) 3.97 4.70-6.10 [facility] TexasYirxmjvKXJMGKFNYV0435-37-29 13:08:00 Test Item Value Reference Range Interpretation Comments WBC (test code = WBC) 8.8 3.7-10.4 [facility] TexasYgordioDSVIEAERUW1008-36-41 13:08:00 Test Item Value Reference Range Interpretation Comments MPV (test code = MPV) 7.7 7.4-10.4 [facility] TexasUgmrjqcVZHAAYOBLG5951-66-33 13:08:00 Test Item Value Reference Range Interpretation Comments Platelet (test code = Platelet) 324 133-450 [facility] CenterVmmxpstUHSBCKDJOBOA9527-00-82 13:08:00 Test Item Value Reference Range Interpretation Comments AGAP (test code = AGAP) 19.3 10.0-20.0 [facility] CenterEkdydobQKCAKGXKULOW6034-02-55 13:08:00 Test Item Value Reference Range Interpretation Comments eGFR (test code = eGFR) 7 [facility] CenterYfitgrvDOWOLTENQVYZ7018-77-78 13:08:00 Test Item Value Reference Range Interpretation Comments Calcium Lvl (test code = Calcium Lvl) 8.4 8.5-10.5 [facility] CenterFrssnjlRYHQDPEGEFRY9915-06-80 13:08:00 Test Item Value Reference Range Interpretation Comments CO2 (test code = CO2) 24 24-32 [facility] CenterYkuijsbRVECLYSALTRJ1862-89-65 13:08:00 Test Item Value Reference Range Interpretation Comments Chloride Lvl (test code = Chloride Lvl) 97 95-109 [facility] CenterXueefkkMPXXBVLLKEXC1307-88-43 13:08:00 Test Item Value Reference Range Interpretation Comments Potassium Lvl (test code = Potassium 5.3 3.5-5.1 Lvl) [facility] CenterGrfvzghGCLPVEFOCQFM9562-07-75 13:08:00 Test Item Value Reference Range Interpretation Comments BUN (test code = BUN) 39 7-22 [facility] CenterSvppgdyYIRWOEKOIKEM5517-63-60 13:08:00 Test Item Value Reference Range Interpretation Comments Creatinine Lvl (test code = Creatinine 7.58 0.50-1.40 Lvl) [facility] CenterZoimxzmTVTFICMTYJBA2643-15-69 13:08:00 Test Item Value Reference Range Interpretation Comments Sodium Lvl (test code = Sodium Lvl) 135 135-145 [facility] CenterWhbhckaQQIMBDYGJSIQ7838-66-83 13:08:00 Test Item Value Reference Range Interpretation Comments Glucose Lvl (test code = Glucose Lvl) 87 70-99 [facility] TexasFozotylQSXJEQULHS9649-22-80 13:08:00 Test Item Value Reference Range Interpretation Comments RDW (test code = RDW) 16.5 11.5-14.5 [facility] TexasLiwwplxYHWNBZDWZF6661-32-57 13:08:00 Test Item Value Reference Range Interpretation Comments MCHC (test code = MCHC) 33.7 32.0-36.0 [facility] TexasCdychgoCQODAVYBUE1650-99-42 13:08:00 Test Item Value Reference Range Interpretation Comments MCH (test code = MCH) 33.7 pg 27.0-31.0 [facility] TexasFolhzkdWWWUMEKLMU6062-44-26 13:08:00 Test Item Value Reference Range Interpretation Comments MCV (test code = MCV) 100.0 80.0-94.0 [facility]YenwqsuRSUQZDRLXG2825-99-09 13:08:00 Test Item Value Reference Range Interpretation Comments Hct (test code = Hct) 39.7 42.0-54.0 [facility] TexasGjxmfmpXYNEKZLGRS0111-27-33 13:08:00 Test Item Value Reference Range Interpretation Comments Hgb (test code = Hgb) 13.4 14.0-18.0 [facility] TexasFtqhpmtDGGYDDBDVH9624-64-01 13:08:00 Test Item Value Reference Range Interpretation Comments RBC (test code = RBC) 3.97 4.70-6.10 [facility] TexasJmpjqxrRWGMTJFTID7162-95-88 13:08:00 Test Item Value Reference Range Interpretation Comments WBC (test code = WBC) 8.8 3.7-10.4 [facility] TexasKzqbxgrYGQTATKVDL3814-54-94 13:08:00 Test Item Value Reference Range Interpretation Comments MPV (test code = MPV) 7.7 7.4-10.4 [facility] TexasBvzxsxzRCDORCWWQD7417-65-46 13:08:00 Test Item Value Reference Range Interpretation Comments Platelet (test code = Platelet) 324 133-450 [facility] CenterEiucfhlENWUIDYZRMWI4271-14-04 13:08:00 Test Item Value Reference Range Interpretation Comments AGAP (test code = AGAP) 19.3 10.0-20.0 [facility] CenterTglvvybWGOECRPXVGGN8481-24-71 13:08:00 Test Item Value Reference Range Interpretation Comments eGFR (test code = eGFR) 7 [facility]FzpoconBZGLEZMXOWXF8149-50-83 13:08:00 Test Item Value Reference Range Interpretation Comments Calcium Lvl (test code = Calcium Lvl) 8.4 8.5-10.5 [facility]NjobktqGUHXLQYEJOXM8892-61-42 13:08:00 Test Item Value Reference Range Interpretation Comments CO2 (test code = CO2) 24 24-32 [facility]KkbcpboBVDQWQMFSQMP8377-86-66 13:08:00 Test Item Value Reference Range Interpretation Comments Chloride Lvl (test code = Chloride Lvl) 97 95-109 [facility] CenterYqamdciOQOVRGUZXWJO3059-68-16 13:08:00 Test Item Value Reference Range Interpretation Comments Potassium Lvl (test code = Potassium 5.3 3.5-5.1 Lvl) [facility] CenterZykyivmLELQEVFZYETA1783-04-97 13:08:00 Test Item Value Reference Range Interpretation Comments BUN (test code = BUN) 39 7-22 [facility] CenterJxglinjKXHSMTFGVOOH8133-15-35 13:08:00 Test Item Value Reference Range Interpretation Comments Creatinine Lvl (test code = Creatinine 7.58 0.50-1.40 Lvl) [facility] CenterLlfscuaFXJUYPHARCCO7155-74-93 13:08:00 Test Item Value Reference Range Interpretation Comments Sodium Lvl (test code = Sodium Lvl) 135 135-145 [facility] CenterYlvyjsjHTLQDQNJXVPA1157-09-08 13:08:00 Test Item Value Reference Range Interpretation Comments Glucose Lvl (test code = Glucose Lvl) 87 70-99 [facility]QizdjjiHJPWISXEAA3183-71-77 13:08:00 Test Item Value Reference Range Interpretation Comments RDW (test code = RDW) 16.5 11.5-14.5 [facility]EigizdhXVEAAFAAHF8919-50-14 13:08:00 Test Item Value Reference Range Interpretation Comments MCHC (test code = MCHC) 33.7 32.0-36.0 [facility] TexasSvczynhWYLCDDOJYT1354-53-73 13:08:00 Test Item Value Reference Range Interpretation Comments MCH (test code = MCH) 33.7 pg 27.0-31.0 [facility] TexasGysqwzbPYUYJBHMEZ0961-53-62 13:08:00 Test Item Value Reference Range Interpretation Comments MCV (test code = MCV) 100.0 80.0-94.0 [facility] TexasPbchctoGLYNJZUSCQ8760-39-19 13:08:00 Test Item Value Reference Range Interpretation Comments Hct (test code = Hct) 39.7 42.0-54.0 [facility] TexasAwppltcDYGHUDMSDS2790-81-28 13:08:00 Test Item Value Reference Range Interpretation Comments Hgb (test code = Hgb) 13.4 14.0-18.0 [facility]FtgodhbAOEJLHNMOX8726-90-23 13:08:00 Test Item Value Reference Range Interpretation Comments RBC (test code = RBC) 3.97 4.70-6.10 [facility] TexasAzjrrweHMIHVSMQYT4902-13-37 13:08:00 Test Item Value Reference Range Interpretation Comments WBC (test code = WBC) 8.8 3.7-10.4 [facility] TexasSbwqasnGZGTYWUCGI6592-37-90 13:08:00 Test Item Value Reference Range Interpretation Comments MPV (test code = MPV) 7.7 7.4-10.4 [facility] TexasMqgpjpqHEAOGTDPJK0737-48-96 13:08:00 Test Item Value Reference Range Interpretation Comments Platelet (test code = Platelet) 324 133-450 [facility] LWBYOJX8475-89-44 18:27:00 Test Item Value Reference Range Interpretation Comments Troponin-I (test code no gt See_Comment [Auto mated message] The = Troponin-I) system which g enerated this result transmit cruz reference range : <=0.40. The reference r jillian was not used to interpr et this result as gee l/abnormal. [facility]EqgynnsRNSLTQQZKRHN4196-70-96 18:27:00 Test Item Value Reference Range Interpretation Comments AGAP (test code = AGAP) 17.2 10.0-20.0 [facility] CenterWybutpzWFVOZDSUBEJP3024-49-86 18:27:00 Test Item Value Reference Range Interpretation Comments eGFR (test code = eGFR) 6 [facility]KvjzhspLLXXZHXNZHNO9846-81-01 18:27:00 Test Item Value Reference Range Interpretation Comments Creatinine Lvl (test code = Creatinine 8.49 0.50-1.40 Lvl) [facility]CejeamjPJJRQQBUPXBO4237-01-40 18:27:00 Test Item Value Reference Range Interpretation Comments Sodium Lvl (test code = Sodium Lvl) 137 135-145 [facility] CenterIlsnwwtPINUJGGBNUVZ4173-80-23 18:27:00 Test Item Value Reference Range Interpretation Comments Potassium Lvl (test code = Potassium 4.2 3.5-5.1 Lvl) [facility] CenterZjbuxkhFBIJXVFPSPYZ8266-58-50 18:27:00 Test Item Value Reference Range Interpretation Comments BUN (test code = BUN) 32 7-22 [facility] CenterSlezfoiGBSSURUUQABM4936-00-14 18:27:00 Test Item Value Reference Range Interpretation Comments Glucose Lvl (test code = Glucose Lvl) 75 70-99 [facility] CenterIcnrhlkGVHDCPKVPHLB5211-14-93 18:27:00 Test Item Value Reference Range Interpretation Comments Calcium Lvl (test code = Calcium Lvl) 7.9 8.5-10.5 [facility] CenterGpjtsuwVCPOAUOZUPFX4900-63-69 18:27:00 Test Item Value Reference Range Interpretation Comments CO2 (test code = CO2) 14 24-32 [facility] CenterTdmixiePDAYSQUFYXDU3918-35-82 18:27:00 Test Item Value Reference Range Interpretation Comments Chloride Lvl (test code = Chloride Lvl) 110 95-109 [facility] TexasHrosbprGSJXSNCSSM5098-30-54 18:27:00 Test Item Value Reference Range Interpretation Comments Hgb (test code = Hgb) 13.8 14.0-18.0 [facility]KdlnntqTCYPYXRFFY6901-96-74 18:27:00 Test Item Value Reference Range Interpretation Comments Hct (test code = Hct) 40.9 42.0-54.0 [facility] TexasVdvzemvEJGOPNIFDW0600-81-75 18:27:00 Test Item Value Reference Range Interpretation Comments RBC (test code = RBC) 4.29 4.70-6.10 [facility] TexasUshicpjIYRDYHJHCP9019-07-94 18:27:00 Test Item Value Reference Range Interpretation Comments MCV (test code = MCV) 95.4 80.0-94.0 [facility] TexasRcmpkxuHQEZPTFSJZ3276-69-92 18:27:00 Test Item Value Reference Range Interpretation Comments MCH (test code = MCH) 32.1 pg 27.0-31.0 [facility] TexasJoklwuoAWOAKUWPTT2895-61-39 18:27:00 Test Item Value Reference Range Interpretation Comments WBC (test code = WBC) 12.2 3.7-10.4 [facility] TexasLiweyhpZYJWQWLORQ6163-96-76 18:27:00 Test Item Value Reference Range Interpretation Comments MPV (test code = MPV) 8.8 7.4-10.4 [facility] TexasFwufervUCMIVUWLLO7325-32-01 18:27:00 Test Item Value Reference Range Interpretation Comments RDW (test code = RDW) 14.5 11.5-14.5 [facility] TexasWubnkqzOTBEKDBCRP3411-42-04 18:27:00 Test Item Value Reference Range Interpretation Comments Platelet (test code = Platelet) 196 133-450 [facility] TexasCbmrvwhXFRCVQBEJQ2924-04-08 18:27:00 Test Item Value Reference Range Interpretation Comments MCHC (test code = MCHC) 33.6 32.0-36.0 [facility] TexasScwbplbGKYYLYIIEF3070-88-91 18:27:00 Test Item Value Reference Range Interpretation Comments Lymphocytes # (test code = Lymphocytes 1.6 1.0-5.5 #) [facility] TexasXfkjvhtYIJCPFPWMO9931-93-27 18:27:00 Test Item Value Reference Range Interpretation Comments Neutrophils # (test code = Neutrophils 9.6 1.5-8.1 #) [facility] TexasZnejcfcYTOPGTDLVT4046-79-02 18:27:00 Test Item Value Reference Range Interpretation Comments Basophils # (test code 0.1 See_Comment [Aut omated message] The = Basophils #) system which generated this result tra nsmitted reference range : <=0.2. The reference r jillian was not used to int erpret this result as normal/abnormal . [facility] TexasZctisxnTEFVOILJYH9334-50-46 18:27:00 Test Item Value Reference Range Interpretation Comments Eosinophils # (test code 0.1 See_Comment [A utomated message] The = Eosinophils #) system wh h generated this result tra nsmitted reference range : <=0.5. The reference r jillian was not used to int erpret this result as normal/abnormal . [facility] TexasLaubhyeBLESEGQSOS4524-82-40 18:27:00 Test Item Value Reference Range Interpretation Comments Monocytes # (test code 0.9 See_Comment [Aut omated message] The = Monocytes #) system which generated this result tra nsmitted reference range : <=0.8. The reference r jillian was not used to int erpret this result as normal/abnormal . [facility] TexasChmckvzYOLAIGTFQM4655-69-07 18:27:00 Test Item Value Reference Range Interpretation Comments Basophils (test code = 0.5 See_Comment [Aut omated message] The Basophils) system which ge nerated this result tra nsmitted reference range : <=1.0. The reference r jillian was not used to int erpret this result as normal/abnormal . [facility] TexasAiwfznjAHDHTPKEEQ8915-61-64 18:27:00 Test Item Value Reference Range Interpretation Comments Eosinophils (test code = 1.1 See_Comment [A utomated message] The Eosinophils) system which ge nerated this result tra nsmitted reference range : <=4.0. The reference r jillian was not used to int erpret this result as normal/abnormal . [facility]CquwbojGNCYRDLJNE2030-78-34 18:27:00 Test Item Value Reference Range Interpretation Comments Monocytes (test code = Monocytes) 7.2 2.0-12.0 [facility] RegionSkqzcvfZENXVEDIUQ2048-15-24 18:27:00 Test Item Value Reference Range Interpretation Comments Lymphocytes (test code = Lymphocytes) 12.8 20.0-40.0 [facility] RegionEanajxnHFQFJBHIJA6393-50-20 18:27:00 Test Item Value Reference Range Interpretation Comments Segs (test code = Segs) 78.4 45.0-75.0 [facility] QOSGIQL8952-01-08 18:27:00 Test Item Value Reference Range Interpretation Comments Troponin-I (test code no gt See_Comment [Auto mated message] The = Troponin-I) system which g enerated this result transmit cruz reference range : <=0.40. The reference r jillian was not used to interpr et this result as gee l/abnormal. [facility]YvhaumpEDYHNOOMGZCM0804-82-47 18:27:00 Test Item Value Reference Range Interpretation Comments AGAP (test code = AGAP) 17.2 10.0-20.0 [facility] CenterNdyrpofWOBDKXBFULTI8857-96-18 18:27:00 Test Item Value Reference Range Interpretation Comments eGFR (test code = eGFR) 6 [facility] CenterHrmgiwsDKQWLZUDJSLG4615-10-95 18:27:00 Test Item Value Reference Range Interpretation Comments Creatinine Lvl (test code = Creatinine 8.49 0.50-1.40 Lvl) [facility] CenterDyusbqfJNENPONEYMFV7050-52-82 18:27:00 Test Item Value Reference Range Interpretation Comments Sodium Lvl (test code = Sodium Lvl) 137 135-145 [facility] CenterLszyqvlPNFKHITWSQMP8812-04-11 18:27:00 Test Item Value Reference Range Interpretation Comments Potassium Lvl (test code = Potassium 4.2 3.5-5.1 Lvl) [facility] CenterHpzzirpGYDGXCOZJGRD5968-83-45 18:27:00 Test Item Value Reference Range Interpretation Comments BUN (test code = BUN) 32 7-22 [facility] CenterJrbmrqrCIMXIULRYPRC7793-35-62 18:27:00 Test Item Value Reference Range Interpretation Comments Glucose Lvl (test code = Glucose Lvl) 75 70-99 [facility] CenterMaltgqlCMJJSZOLVUPW2923-48-93 18:27:00 Test Item Value Reference Range Interpretation Comments Calcium Lvl (test code = Calcium Lvl) 7.9 8.5-10.5 [facility] CenterOqtvfigAOJRTPADMUUQ0176-54-15 18:27:00 Test Item Value Reference Range Interpretation Comments CO2 (test code = CO2) 14 24-32 [facility] CenterGwfotvwYJWAAENMRPTD0468-82-92 18:27:00 Test Item Value Reference Range Interpretation Comments Chloride Lvl (test code = Chloride Lvl) 110 95-109 [facility]GpjvjwoWCMRCJTYIG4016-07-80 18:27:00 Test Item Value Reference Range Interpretation Comments Hgb (test code = Hgb) 13.8 14.0-18.0 [facility] TexasHmovdwmFFJSANTHEO6236-50-23 18:27:00 Test Item Value Reference Range Interpretation Comments Hct (test code = Hct) 40.9 42.0-54.0 [facility] TexasQaxaaxtHVFMAHYINH5493-61-28 18:27:00 Test Item Value Reference Range Interpretation Comments RBC (test code = RBC) 4.29 4.70-6.10 [facility] TexasBchjmdgNXKZGTXSCV4057-86-37 18:27:00 Test Item Value Reference Range Interpretation Comments MCV (test code = MCV) 95.4 80.0-94.0 [facility] TexasEahcsraCRPZVMXIGK9034-75-76 18:27:00 Test Item Value Reference Range Interpretation Comments MCH (test code = MCH) 32.1 pg 27.0-31.0 [facility] TexasZzkqxaqBUPPADGSRV3792-06-27 18:27:00 Test Item Value Reference Range Interpretation Comments WBC (test code = WBC) 12.2 3.7-10.4 [facility] TexasGakrfpgCYZESXIVQZ7261-31-96 18:27:00 Test Item Value Reference Range Interpretation Comments MPV (test code = MPV) 8.8 7.4-10.4 [facility] TexasLothbpjZZOYXLASZV3710-19-68 18:27:00 Test Item Value Reference Range Interpretation Comments RDW (test code = RDW) 14.5 11.5-14.5 [facility] TexasTeligygAOEMVWJSYB3141-41-94 18:27:00 Test Item Value Reference Range Interpretation Comments Platelet (test code = Platelet) 196 133-450 [facility] TexasLmpzbrgPKDFDYDMOJ4472-24-00 18:27:00 Test Item Value Reference Range Interpretation Comments MCHC (test code = MCHC) 33.6 32.0-36.0 [facility] TexasLwtttctEWHIUVNUGT7287-75-85 18:27:00 Test Item Value Reference Range Interpretation Comments Lymphocytes # (test code = Lymphocytes 1.6 1.0-5.5 #) [facility] TexasKauycqeKCCRHTDNGJ1062-80-07 18:27:00 Test Item Value Reference Range Interpretation Comments Neutrophils # (test code = Neutrophils 9.6 1.5-8.1 #) [facility] TexasNxqipjwLGVPQPWVUE4320-00-74 18:27:00 Test Item Value Reference Range Interpretation Comments Basophils # (test code 0.1 See_Comment [Aut omated message] The = Basophils #) system which generated this result tra nsmitted reference range : <=0.2. The reference r jillian was not used to int erpret this result as normal/abnormal . [facility] TexasBvgzmcdSTPTJCTOZR5969-02-07 18:27:00 Test Item Value Reference Range Interpretation Comments Eosinophils # (test code 0.1 See_Comment [A utomated message] The = Eosinophils #) system wh h generated this result tra nsmitted reference range : <=0.5. The reference r jillian was not used to int erpret this result as normal/abnormal . [facility] TexasLuneuqvUQANKZZBVY6918-07-97 18:27:00 Test Item Value Reference Range Interpretation Comments Monocytes # (test code 0.9 See_Comment [Aut omated message] The = Monocytes #) system which generated this result tra nsmitted reference range : <=0.8. The reference r jillian was not used to int erpret this result as normal/abnormal . [facility] TexasTrbtsrsMHVTGBNPIP2896-82-45 18:27:00 Test Item Value Reference Range Interpretation Comments Basophils (test code = 0.5 See_Comment [Aut omated message] The Basophils) system which ge nerated this result tra nsmitted reference range : <=1.0. The reference r jillian was not used to int erpret this result as normal/abnormal . [facility] TexasVcberrrLAOHNWEFXF9993-05-37 18:27:00 Test Item Value Reference Range Interpretation Comments Eosinophils (test code = 1.1 See_Comment [A utomated message] The Eosinophils) system which ge nerated this result tra nsmitted reference range : <=4.0. The reference r jillian was not used to int erpret this result as normal/abnormal . [facility] RegionKsgrehcGIDLAISQGQ6865-77-54 18:27:00 Test Item Value Reference Range Interpretation Comments Monocytes (test code = Monocytes) 7.2 2.0-12.0 [facility] RegionNshyumbARFLEYVBBQ5145-78-21 18:27:00 Test Item Value Reference Range Interpretation Comments Lymphocytes (test code = Lymphocytes) 12.8 20.0-40.0 [facility] RegionJnootspNADICRKMIK4796-30-75 18:27:00 Test Item Value Reference Range Interpretation Comments Segs (test code = Segs) 78.4 45.0-75.0 [facility] XCATUER4330-08-75 18:27:00 Test Item Value Reference Range Interpretation Comments Troponin-I (test code no gt See_Comment [Auto mated message] The = Troponin-I) system which g enerated this result transmit cruz reference range : <=0.40. The reference r jillian was not used to interpr et this result as gee l/abnormal. [facility] CenterPjnawhwMULVGGBCPYFC4473-57-71 18:27:00 Test Item Value Reference Range Interpretation Comments AGAP (test code = AGAP) 17.2 10.0-20.0 [facility] CenterNvfhbdxFAOFTDPASBOY3863-59-03 18:27:00 Test Item Value Reference Range Interpretation Comments eGFR (test code = eGFR) 6 [facility] CenterAtlsmehASDRHAEJZTVJ8176-90-18 18:27:00 Test Item Value Reference Range Interpretation Comments Creatinine Lvl (test code = Creatinine 8.49 0.50-1.40 Lvl) [facility] CenterSirnpyzIWPAUSDGCOOE7028-52-99 18:27:00 Test Item Value Reference Range Interpretation Comments Sodium Lvl (test code = Sodium Lvl) 137 135-145 [facility] CenterYvdrlhjKMQIXAKVICPW6556-34-12 18:27:00 Test Item Value Reference Range Interpretation Comments Potassium Lvl (test code = Potassium 4.2 3.5-5.1 Lvl) [facility] CenterTnqxuudWPURXNGPNWCV2618-38-15 18:27:00 Test Item Value Reference Range Interpretation Comments BUN (test code = BUN) 32 7-22 [facility] CenterBmhlayeFFBKAXVTUIDV5494-99-11 18:27:00 Test Item Value Reference Range Interpretation Comments Glucose Lvl (test code = Glucose Lvl) 75 70-99 [facility] CenterYbjmrjjYAGFMKBBRXTI5230-36-91 18:27:00 Test Item Value Reference Range Interpretation Comments Calcium Lvl (test code = Calcium Lvl) 7.9 8.5-10.5 [facility]EgqqqulWZNOOLORAIUJ9956-12-16 18:27:00 Test Item Value Reference Range Interpretation Comments CO2 (test code = CO2) 14 24-32 [facility]MpdygsiADVTNDRBJRPA7967-43-78 18:27:00 Test Item Value Reference Range Interpretation Comments Chloride Lvl (test code = Chloride Lvl) 110 95-109 [facility] TexasGhzuspnEMLINXUQRN0301-35-73 18:27:00 Test Item Value Reference Range Interpretation Comments Hgb (test code = Hgb) 13.8 14.0-18.0 [facility] TexasRhlgoioINQJMUECDP2719-61-05 18:27:00 Test Item Value Reference Range Interpretation Comments Hct (test code = Hct) 40.9 42.0-54.0 [facility] TexasVqatspxYCIVVCHSNP5293-92-37 18:27:00 Test Item Value Reference Range Interpretation Comments RBC (test code = RBC) 4.29 4.70-6.10 [facility] TexasHszvvjlQHHGLPMXLP7191-37-88 18:27:00 Test Item Value Reference Range Interpretation Comments MCV (test code = MCV) 95.4 80.0-94.0 [facility] TexasKkzwhfrVYRJAPKHQD0162-04-41 18:27:00 Test Item Value Reference Range Interpretation Comments MCH (test code = MCH) 32.1 pg 27.0-31.0 [facility] TexasQmzxcjfUSTMHOHRSV1423-71-39 18:27:00 Test Item Value Reference Range Interpretation Comments WBC (test code = WBC) 12.2 3.7-10.4 [facility] TexasWjtxoonOBZMRMNHVQ0664-12-04 18:27:00 Test Item Value Reference Range Interpretation Comments MPV (test code = MPV) 8.8 7.4-10.4 [facility] TexasUbqjgagVIBPXAJIIX5134-99-36 18:27:00 Test Item Value Reference Range Interpretation Comments RDW (test code = RDW) 14.5 11.5-14.5 [facility] TexasRtlxogsVCSKTHZRYL4308-86-56 18:27:00 Test Item Value Reference Range Interpretation Comments Platelet (test code = Platelet) 196 133-450 [facility] TexasEbkyekuFZSLIVYHBM6562-93-77 18:27:00 Test Item Value Reference Range Interpretation Comments MCHC (test code = MCHC) 33.6 32.0-36.0 [facility] TexasZjkusjoUFMCAEUUYB7327-88-34 18:27:00 Test Item Value Reference Range Interpretation Comments Lymphocytes # (test code = Lymphocytes 1.6 1.0-5.5 #) [facility] TexasTfxybfnXBBCPLLFVA0268-00-46 18:27:00 Test Item Value Reference Range Interpretation Comments Neutrophils # (test code = Neutrophils 9.6 1.5-8.1 #) [facility] TexasZtvpptoLRYGTUUWBK2417-51-14 18:27:00 Test Item Value Reference Range Interpretation Comments Basophils # (test code 0.1 See_Comment [Aut omated message] The = Basophils #) system which generated this result tra nsmitted reference range : <=0.2. The reference r jillian was not used to int erpret this result as normal/abnormal . [facility] TexasSatdxlmNXPOYXAOGT2773-26-26 18:27:00 Test Item Value Reference Range Interpretation Comments Eosinophils # (test code 0.1 See_Comment [A utomated message] The = Eosinophils #) system wh h generated this result tra nsmitted reference range : <=0.5. The reference r jillian was not used to int erpret this result as normal/abnormal . [facility] TexasQnniseuBSWMCETNIY5617-53-00 18:27:00 Test Item Value Reference Range Interpretation Comments Monocytes # (test code 0.9 See_Comment [Aut omated message] The = Monocytes #) system which generated this result tra nsmitted reference range : <=0.8. The reference r jillian was not used to int erpret this result as normal/abnormal . [facility] TexasKeoanazARADKSNRBA2915-51-36 18:27:00 Test Item Value Reference Range Interpretation Comments Basophils (test code = 0.5 See_Comment [Aut omated message] The Basophils) system which ge nerated this result tra nsmitted reference range : <=1.0. The reference r jillian was not used to int erpret this result as normal/abnormal . [facility] TexasIyculnaWPFDKFWVTY8894-44-06 18:27:00 Test Item Value Reference Range Interpretation Comments Eosinophils (test code = 1.1 See_Comment [A utomated message] The Eosinophils) system which ge nerated this result tra nsmitted reference range : <=4.0. The reference r jillian was not used to int erpret this result as normal/abnormal . [facility] TexasQbfklvtNOWPYYUFUA5006-23-86 18:27:00 Test Item Value Reference Range Interpretation Comments Monocytes (test code = Monocytes) 7.2 2.0-12.0 [facility] RegionUgsogwyQCXEXDBSPL7719-49-32 18:27:00 Test Item Value Reference Range Interpretation Comments Lymphocytes (test code = Lymphocytes) 12.8 20.0-40.0 [facility] RegionMbiepvbJEKSHUXKXW9386-87-92 18:27:00 Test Item Value Reference Range Interpretation Comments Segs (test code = Segs) 78.4 45.0-75.0 [facility] AKGVYBE7651-03-56 18:27:00 Test Item Value Reference Range Interpretation Comments Troponin-I (test code = Troponin-I) no gt <=0.40 [facility]NipgrgqNFCGRGSJLNTU8213-53-59 18:27:00 Test Item Value Reference Range Interpretation Comments AGAP (test code = AGAP) 17.2 10.0-20.0 [facility]VlumftcNKQOAONLHSGZ8146-42-15 18:27:00 Test Item Value Reference Range Interpretation Comments eGFR (test code = eGFR) 6 [facility] CenterTucymbfZGTQYJZMABHR1214-92-44 18:27:00 Test Item Value Reference Range Interpretation Comments Creatinine Lvl (test code = Creatinine 8.49 0.50-1.40 Lvl) [facility] CenterHxpdlqsXIBQMUHQATRH3657-63-33 18:27:00 Test Item Value Reference Range Interpretation Comments Sodium Lvl (test code = Sodium Lvl) 137 135-145 [facility]IbbvttpTXSWABFAZKLB6860-47-60 18:27:00 Test Item Value Reference Range Interpretation Comments Potassium Lvl (test code = Potassium 4.2 3.5-5.1 Lvl) [facility] CenterBrokvbzOUUOARVDXVVF3715-74-10 18:27:00 Test Item Value Reference Range Interpretation Comments BUN (test code = BUN) 32 7-22 [facility]stTgduuxvUGIWTVJTTKTQ6414-27-83 18:27:00 Test Item Value Reference Range Interpretation Comments Glucose Lvl (test code = Glucose Lvl) 75 70-99 [facility] CenterCoufotyRNPRFEDLALQS4795-99-13 18:27:00 Test Item Value Reference Range Interpretation Comments Calcium Lvl (test code = Calcium Lvl) 7.9 8.5-10.5 [facility] CenterZdvtfsoHORDRJGXONIG0046-05-20 18:27:00 Test Item Value Reference Range Interpretation Comments CO2 (test code = CO2) 14 24-32 [facility] CenterOyuwuqcXSGHABYGUIRT9205-91-58 18:27:00 Test Item Value Reference Range Interpretation Comments Chloride Lvl (test code = Chloride Lvl) 110 95-109 [facility] TexasGydxdmyWLQBWRPZLQ5722-18-48 18:27:00 Test Item Value Reference Range Interpretation Comments Hgb (test code = Hgb) 13.8 14.0-18.0 [facility] TexasQslvpqaYBUXMURYOG1607-49-05 18:27:00 Test Item Value Reference Range Interpretation Comments Hct (test code = Hct) 40.9 42.0-54.0 [facility] TexasKdqoedoEBXEPXJJCM4648-90-92 18:27:00 Test Item Value Reference Range Interpretation Comments RBC (test code = RBC) 4.29 4.70-6.10 [facility] TexasTeaxicdZVKKEVKBXO6330-17-77 18:27:00 Test Item Value Reference Range Interpretation Comments MCV (test code = MCV) 95.4 80.0-94.0 [facility] TexasRgfzqyqIFZWPODUIE6567-00-45 18:27:00 Test Item Value Reference Range Interpretation Comments MCH (test code = MCH) 32.1 pg 27.0-31.0 [facility]xudABYJZMHHEM9662-30-20 18:27:00 Test Item Value Reference Range Interpretation Comments WBC (test code = WBC) 12.2 3.7-10.4 [facility]RqpikkjBLWSAGGDVR6782-51-58 18:27:00 Test Item Value Reference Range Interpretation Comments MPV (test code = MPV) 8.8 7.4-10.4 [facility]NtnpwqfEADFXUCHQH9078-56-21 18:27:00 Test Item Value Reference Range Interpretation Comments RDW (test code = RDW) 14.5 11.5-14.5 [facility]NzqgnwjVKNGJLOYHG7375-75-65 18:27:00 Test Item Value Reference Range Interpretation Comments Platelet (test code = Platelet) 196 133-450 [facility]DyktfviLEIDKEFEMZ9732-16-83 18:27:00 Test Item Value Reference Range Interpretation Comments MCHC (test code = MCHC) 33.6 32.0-36.0 [facility]sgfazvKZAFZZTEVY0226-29-31 18:27:00 Test Item Value Reference Range Interpretation Comments Lymphocytes # (test code = Lymphocytes 1.6 1.0-5.5 #) [facility]WdpgstyKCMZKWAUEV0387-43-13 18:27:00 Test Item Value Reference Range Interpretation Comments Neutrophils # (test code = Neutrophils 9.6 1.5-8.1 #) [facility]GhvqyvxMTFXIMPYIJ3982-44-18 18:27:00 Test Item Value Reference Range Interpretation Comments Basophils # (test code = Basophils #) 0.1 <=0.2 [facility]PfrfgwwUFGQMWDOUD8849-51-78 18:27:00 Test Item Value Reference Range Interpretation Comments Eosinophils # (test code = Eosinophils 0.1 <=0.5 #) [facility]KubhgifELBAHEITIW8332-87-68 18:27:00 Test Item Value Reference Range Interpretation Comments Monocytes # (test code = Monocytes #) 0.9 <=0.8 [facility]VzbvssdHAPVTHWANN0585-63-96 18:27:00 Test Item Value Reference Range Interpretation Comments Basophils (test code = Basophils) 0.5 <=1.0 [facility]VghwxyjAOMGVNEWYJ6181-58-26 18:27:00 Test Item Value Reference Range Interpretation Comments Eosinophils (test code = Eosinophils) 1.1 <=4.0 [facility]CrfqrubJYTNEGEUPV0390-63-96 18:27:00 Test Item Value Reference Range Interpretation Comments Monocytes (test code = Monocytes) 7.2 2.0-12.0 [facility]YaqpxvmHGSMFSEQXU6322-27-16 18:27:00 Test Item Value Reference Range Interpretation Comments Lymphocytes (test code = Lymphocytes) 12.8 20.0-40.0 [facility] RegionOwrbxsoJEJFYOSFMW6506-61-55 18:27:00 Test Item Value Reference Range Interpretation Comments Segs (test code = Segs) 78.4 45.0-75.0 [facility]INTMODSAZE0066-90-44 18:27:00 Test Item Value Reference Range Interpretation Comments Troponin-I (test code no gt See_Comment [Auto mated message] The = Troponin-I) system which g enerated this result transmit cruz reference range : <=0.40. The reference r jillian was not used to interpr et this result as gee l/abnormal. [facility]DertzfsXALNFRERSQXK5080-78-23 18:27:00 Test Item Value Reference Range Interpretation Comments AGAP (test code = AGAP) 17.2 10.0-20.0 [facility]MqgglmdRNVKAMZTAWVT4052-79-53 18:27:00 Test Item Value Reference Range Interpretation Comments eGFR (test code = eGFR) 6 [facility] CenterWbdabayRACLWYBWHJTP8807-93-13 18:27:00 Test Item Value Reference Range Interpretation Comments Creatinine Lvl (test code = Creatinine 8.49 0.50-1.40 Lvl) [facility] CenterCzpalioXWVIVHWVJKDN4108-65-75 18:27:00 Test Item Value Reference Range Interpretation Comments Sodium Lvl (test code = Sodium Lvl) 137 135-145 [facility] CenterZhbigjiQSTXOSQPATNG0382-57-74 18:27:00 Test Item Value Reference Range Interpretation Comments Potassium Lvl (test code = Potassium 4.2 3.5-5.1 Lvl) [facility] CenterVgnpcpbANIAPALBOTPV4582-74-88 18:27:00 Test Item Value Reference Range Interpretation Comments BUN (test code = BUN) 32 7-22 [facility] CenterCasfzswEJKAWHLBCEJS3342-42-52 18:27:00 Test Item Value Reference Range Interpretation Comments Glucose Lvl (test code = Glucose Lvl) 75 70-99 [facility] CenterRlynwriIIKUOKPXBEDJ1747-11-35 18:27:00 Test Item Value Reference Range Interpretation Comments Calcium Lvl (test code = Calcium Lvl) 7.9 8.5-10.5 [facility] CenterLunnxxlYWQWEYVARXWT5632-15-99 18:27:00 Test Item Value Reference Range Interpretation Comments CO2 (test code = CO2) 14 24-32 [facility] CenterZjoorflUTFQKAHGNOTH3911-29-40 18:27:00 Test Item Value Reference Range Interpretation Comments Chloride Lvl (test code = Chloride Lvl) 110 95-109 [facility]KhlvsozHXZNDXSRPU3918-69-72 18:27:00 Test Item Value Reference Range Interpretation Comments Hgb (test code = Hgb) 13.8 14.0-18.0 [facility]EuzilhuWQSPHAMNZK0558-63-49 18:27:00 Test Item Value Reference Range Interpretation Comments Hct (test code = Hct) 40.9 42.0-54.0 [facility]OqatokmKMGHUECXWF5028-43-88 18:27:00 Test Item Value Reference Range Interpretation Comments RBC (test code = RBC) 4.29 4.70-6.10 [facility]SfssauwXPOSPMSPEB6703-19-19 18:27:00 Test Item Value Reference Range Interpretation Comments MCV (test code = MCV) 95.4 80.0-94.0 [facility]NqetiryACTNCUUWJL7900-99-22 18:27:00 Test Item Value Reference Range Interpretation Comments MCH (test code = MCH) 32.1 pg 27.0-31.0 [facility]GpflkjlAAWRZABSIH6205-08-39 18:27:00 Test Item Value Reference Range Interpretation Comments WBC (test code = WBC) 12.2 3.7-10.4 [facility]KwiaqvqVEEXHLJQQX9761-23-80 18:27:00 Test Item Value Reference Range Interpretation Comments MPV (test code = MPV) 8.8 7.4-10.4 [facility]PsttaxlYERFAGFGOQ4384-83-21 18:27:00 Test Item Value Reference Range Interpretation Comments RDW (test code = RDW) 14.5 11.5-14.5 [facility]WlpexbrLDASINIVQC0762-44-18 18:27:00 Test Item Value Reference Range Interpretation Comments Platelet (test code = Platelet) 196 133-450 [facility]YgtoutzIKSDZGDRIU2782-59-55 18:27:00 Test Item Value Reference Range Interpretation Comments MCHC (test code = MCHC) 33.6 32.0-36.0 [facility]YsuqttzWDAOHNWNLQ6280-60-47 18:27:00 Test Item Value Reference Range Interpretation Comments Lymphocytes # (test code = Lymphocytes 1.6 1.0-5.5 #) [facility]UcccgfaAFFKVABDAX5909-24-34 18:27:00 Test Item Value Reference Range Interpretation Comments Neutrophils # (test code = Neutrophils 9.6 1.5-8.1 #) [facility]LkjewxkUMKHUMTYKE3542-25-92 18:27:00 Test Item Value Reference Range Interpretation Comments Basophils # (test code 0.1 See_Comment [Aut omated message] The = Basophils #) system which generated this result tra nsmitted reference range : <=0.2. The reference r jillian was not used to int erpret this result as normal/abnormal . [facility]VlisvuzKJNJEKPTKG2268-47-32 18:27:00 Test Item Value Reference Range Interpretation Comments Eosinophils # (test code 0.1 See_Comment [A utomated message] The = Eosinophils #) system whic h generated this result tra nsmitted reference range : <=0.5. The reference r jillian was not used to int erpret this result as normal/abnormal . [facility]VpzgmloVFVAWWSHVN2081-75-73 18:27:00 Test Item Value Reference Range Interpretation Comments Monocytes # (test code 0.9 See_Comment [Aut omated message] The = Monocytes #) system which generated this result tra nsmitted reference range : <=0.8. The reference r jillian was not used to int erpret this result as normal/abnormal . [facility] RegionThiqlanZZMGTHCFZW1099-96-97 18:27:00 Test Item Value Reference Range Interpretation Comments Basophils (test code = 0.5 See_Comment [Aut omated message] The Basophils) system which ge nerated this result tra nsmitted reference range : <=1.0. The reference r jillian was not used to int erpret this result as normal/abnormal . [facility] RegionBvvrvqkXVQAHJZZGS0515-63-69 18:27:00 Test Item Value Reference Range Interpretation Comments Eosinophils (test code = 1.1 See_Comment [A utomated message] The Eosinophils) system which ge nerated this result tra nsmitted reference range : <=4.0. The reference r jillian was not used to int erpret this result as normal/abnormal . [facility] RegionKxtrfhiQALVSIHMHM2498-11-54 18:27:00 Test Item Value Reference Range Interpretation Comments Monocytes (test code = Monocytes) 7.2 2.0-12.0 [facility] CenterHynckuzEATRCZXILY5282-31-50 18:27:00 Test Item Value Reference Range Interpretation Comments Lymphocytes (test code = Lymphocytes) 12.8 20.0-40.0 [facility] RegionLizhrhbAPQJNRLQHR8765-49-64 18:27:00 Test Item Value Reference Range Interpretation Comments Segs (test code = Segs) 78.4 45.0-75.0 [facility] CenterCARDIAC JCNGJBX9089-49-92 18:27:00 Test Item Value Reference Range Interpretation Comments Troponin-I (test code = Troponin-I) no gt <=0.40 [facility] HospitalUnfdnwmXYVGBARGECPP0870-20-89 18:27:00 Test Item Value Reference Range Interpretation Comments AGAP (test code = AGAP) 17.2 10.0-20.0 [facility]IgbkpqjKFRITXGJEYTR8883-42-63 18:27:00 Test Item Value Reference Range Interpretation Comments eGFR (test code = eGFR) 6 [facility] CenterMnvhoitFDKJTUJXETTK9432-44-82 18:27:00 Test Item Value Reference Range Interpretation Comments Creatinine Lvl (test code = Creatinine 8.49 0.50-1.40 Lvl) [facility] CenterBfinaozBPVHYXJNHAKE1202-66-97 18:27:00 Test Item Value Reference Range Interpretation Comments Sodium Lvl (test code = Sodium Lvl) 137 135-145 [facility] CenterWgjypnkNHUJZPXXSKHL3277-86-99 18:27:00 Test Item Value Reference Range Interpretation Comments Potassium Lvl (test code = Potassium 4.2 3.5-5.1 Lvl) [facility] CenterBadcfkvLXZHOPBSZUXV4306-72-47 18:27:00 Test Item Value Reference Range Interpretation Comments BUN (test code = BUN) 32 7-22 [facility] CenterPsidlsgSCGVXCMCUFJZ7853-33-38 18:27:00 Test Item Value Reference Range Interpretation Comments Glucose Lvl (test code = Glucose Lvl) 75 70-99 [facility] CenterGnbamvmAXDPYFDVXPVL4621-39-33 18:27:00 Test Item Value Reference Range Interpretation Comments Calcium Lvl (test code = Calcium Lvl) 7.9 8.5-10.5 [facility] CenterSjwavmvPOCYHSREHNAQ8893-09-59 18:27:00 Test Item Value Reference Range Interpretation Comments CO2 (test code = CO2) 14 24-32 [facility] CenterVciylgaMZJKQQICJMFQ6487-27-59 18:27:00 Test Item Value Reference Range Interpretation Comments Chloride Lvl (test code = Chloride Lvl) 110 95-109 [facility]FyseatiDXTILRBICT9349-58-48 18:27:00 Test Item Value Reference Range Interpretation Comments Hgb (test code = Hgb) 13.8 14.0-18.0 [facility]GwkxvwfSQATNREFEF4748-78-67 18:27:00 Test Item Value Reference Range Interpretation Comments Hct (test code = Hct) 40.9 42.0-54.0 [facility] TexasRoazbijCQCKGZFPUS4162-64-48 18:27:00 Test Item Value Reference Range Interpretation Comments RBC (test code = RBC) 4.29 4.70-6.10 [facility] TexasHhkypjaJCQNMVZEJT3937-35-77 18:27:00 Test Item Value Reference Range Interpretation Comments MCV (test code = MCV) 95.4 80.0-94.0 [facility] TexasQpatktcTIFWGBYPJW2768-20-94 18:27:00 Test Item Value Reference Range Interpretation Comments MCH (test code = MCH) 32.1 pg 27.0-31.0 [facility]YjidxlqMGKUBMYRAC6780-30-60 18:27:00 Test Item Value Reference Range Interpretation Comments WBC (test code = WBC) 12.2 3.7-10.4 [facility]OxnbppwPQSONLPHTM4559-50-85 18:27:00 Test Item Value Reference Range Interpretation Comments MPV (test code = MPV) 8.8 7.4-10.4 [facility] TexasAhtkidlWHVCPIOMMZ6978-51-01 18:27:00 Test Item Value Reference Range Interpretation Comments RDW (test code = RDW) 14.5 11.5-14.5 [facility]QyjjqkcXBGGIAEUSC0073-26-19 18:27:00 Test Item Value Reference Range Interpretation Comments Platelet (test code = Platelet) 196 133-450 [facility] TexasRzhuvaqMCDORJTAGS5061-10-94 18:27:00 Test Item Value Reference Range Interpretation Comments MCHC (test code = MCHC) 33.6 32.0-36.0 [facility] TexasIlbzvuzCQUBNAXDQZ4721-27-93 18:27:00 Test Item Value Reference Range Interpretation Comments Lymphocytes # (test code = Lymphocytes 1.6 1.0-5.5 #) [facility]UgbdaemAKKCCCVIYT6612-63-25 18:27:00 Test Item Value Reference Range Interpretation Comments Neutrophils # (test code = Neutrophils 9.6 1.5-8.1 #) [facility]XwmgeigSXDCQFBXZT1603-69-69 18:27:00 Test Item Value Reference Range Interpretation Comments Basophils # (test code = Basophils #) 0.1 <=0.2 [facility] TexasDqvbocvYNUKURLNQW6661-77-80 18:27:00 Test Item Value Reference Range Interpretation Comments Eosinophils # (test code = Eosinophils 0.1 <=0.5 #) [facility]ZixvjxmVDXZXGGMSO8340-62-77 18:27:00 Test Item Value Reference Range Interpretation Comments Monocytes # (test code = Monocytes #) 0.9 <=0.8 [facility] TexasQbrxxdkRHPLJYLMCJ1515-18-31 18:27:00 Test Item Value Reference Range Interpretation Comments Basophils (test code = Basophils) 0.5 <=1.0 [facility]EwqhzozHMQIGEHYXD9913-47-54 18:27:00 Test Item Value Reference Range Interpretation Comments Eosinophils (test code = Eosinophils) 1.1 <=4.0 [facility] RegionMydwwndBRMGEQIIAW0014-37-42 18:27:00 Test Item Value Reference Range Interpretation Comments Monocytes (test code = Monocytes) 7.2 2.0-12.0 [facility] RegionXpxqdwrUUPIUAAGZP6035-47-82 18:27:00 Test Item Value Reference Range Interpretation Comments Lymphocytes (test code = Lymphocytes) 12.8 20.0-40.0 [facility] RegionQgdrwcrUQKRVDVPZB1426-45-13 18:27:00 Test Item Value Reference Range Interpretation Comments Segs (test code = Segs) 78.4 45.0-75.0 [facility] CenterURINALYSIS WITH [id number] 06:31:00 Test Item Value Reference Range Interpretation [...] code = USPERM) /HPF NONE BASIC METABOLIC [id number] 04:20:00 Test Item Value Reference Range Interpretation [...] = 09D) 7.8 mg/dL 8.3-9.5 L CARDIAC UEMRZYC3330-15-22 04:14:00 Test Item Value Reference Range Interpretation [...] MORPH (test code = RBCMOR) NORMAL CARDIAC [id number] 21:34:00 Test Item Value Reference Range Interpretation Comments TROPONIN I (test code = A84) <0.015 ng/mL 0.000-0.045 CKMB (test code = A49) 1.3 ng/mL <=3.6 CPK (test code = 32A) 50 IU/L 39-308 U/S CAROTID COLOR DOPPLER [id number] 21:13:04Examination: Bilateral carotid Doppler ultrasoundLocation code: Z1Naebashtno: NoneTechnique:Clinicalhistory is remarkable for dizziness, giddiness. Real-time [...] present, no hemodynamicallysignificant stenosis identified.CT HEAD W/O [id number] 14:56:12CT Brain without contrast.Location code:S2LPRSGCDU HISTORY: [id number]: Chest painComparison: NoneTechnique: Routine unenhanced CT brain [...] acuteintracranial abnormality. Old right thalamic infarct.AMYLASE AND [id number] 14:42:00 Test Item Value Reference Range Interpretation Comments AMYLASE (test code = 10A) 68 U/L 28-100 LIPASE (test code = 60A) 130 IU/L 73-393 COMPREHENSIVE METABOLIC [id number] 14:42:00 Test Item Value Reference Range Interpretation [...] 31A) 23 IU/L <=78 PRO TIME AND [id number] 14:41:00 Test Item Value Reference Range Interpretation [...] Code is ANTI-XA XR CHEST 1 VIEW JJGPZSTG2082-63-95 14:38:47EXAMINATION: XR CHEST 1 VIEW PORTABLE.LOCATION: D4.HISTORY: Chest pain, dizziness.COMPARISON: None.FI NDINGS:Examination is limited due to portable technique, patient body habitus and lowlung volumes.Cardiac silhouette/Mediastinal contour: Prominence of cardiac silhouette. Lungs: No focal consolidation. No large pleural effusion. Pulmonary vascularcongestion.Osseous Structures: Mild degenerative changes of thoracic spine.IMPRESSION: Limited study, pulmonary vascular congestion.DRUGS OF [id number] 14:36:00 Test Item Value Reference Range Interpretation [...] (test code = RBCMOR) [facility] LAB [id number] 19:22:00 Test Item Value Reference Range Interpretation Comments Test Name (test code = HLA TYPING RESULTS Test Name) [facility] [id number] 19:22:00 Test Item Value Reference Range Interpretation Comments Test Name (test code = HLA TYPING RESULTS Test Name) [facility] [id number] 19:22:00 Test Item Value Reference Range Interpretation Comments Test Name (test code = HLA TYPING RESULTS Test Name) [facility] [id number] 19:22:00 Test Item Value Reference Range Interpretation Comments Test Name (test code = HLA TYPING RESULTS Test Name) [facility] [id number] 19:22:00 Test Item Value Reference Range Interpretation Comments Test Name (test code = HLA TYPING RESULTS Test Name) [facility] HospitalPresage BiosciencesAS[facility] [id number] 19:22:00 Test Item Value Reference Range Interpretation Comments Test Name (test code = HLA TYPING RESULTS Test Name) [facility] [employer] [id number] 16:20:00 Test Item Value Reference Range Interpretation Comments eGFR (test code = eGFR) 12 [facility] HospitalVirtusize [id number] 16:20:00 Test Item Value Reference Range Interpretation Comments POC Hematocrit (test code = POC 30.0 42.0-54.0 Hematocrit) [facility] [employer] [id number] 16:20:00 Test Item Value Reference Range Interpretation Comments POC Creatinine (test code = POC 5.0 0.5-1.4 Creatinine) [facility]2018-04-05 16:20:00 Test Item Value Reference Range Interpretation Comments POC Hemoglobin (test code = POC 10.2 14.0-18.0 Hemoglobin) [facility]2018-04-05 16:20:00 Test Item Value Reference Range Interpretation Comments POC Carbon Dioxide (test code = POC 24 24-32 Carbon Dioxide) [facility]2018-04-05 16:20:00 Test Item Value Reference Range Interpretation Comments POC BUN (test code = POC BUN) 22 7-22 [facility]2018-04-05 16:20:00 Test Item Value Reference Range Interpretation Comments POC Glucose (test code = POC Glucose) 96 70-99 [facility]2018-04-05 16:20:00 Test Item Value Reference Range Interpretation Comments POC Ion Ca (test code = POC Ion Ca) 1.06 1.05-1.25 [facility]2018-04-05 16:20:00 Test Item Value Reference Range Interpretation Comments POC AGAP (test code = POC AGAP) 16.0 10.0-20.0 [facility]2018-04-05 16:20:00 Test Item Value Reference Range Interpretation Comments POC Potassium (test code = POC 4.2 3.5-5.1 Potassium) [facility]2018-04-05 16:20:00 Test Item Value Reference Range Interpretation Comments POC Chloride (test code = POC Chloride) 103 95-109 [facility]2018-04-05 16:20:00 Test Item Value Reference Range Interpretation Comments POC Sodium (test code = POC Sodium) 137 135-145 [facility]2018-04-05 16:20:00 Test Item Value Reference Range Interpretation Comments eGFR (test code = eGFR) 12 [facility]2018-04-05 16:20:00 Test Item Value Reference Range Interpretation Comments POC Hematocrit (test code = POC 30.0 42.0-54.0 Hematocrit) [facility]2018-04-05 16:20:00 Test Item Value Reference Range Interpretation Comments POC Creatinine (test code = POC 5.0 0.5-1.4 Creatinine) [facility]2018-04-05 16:20:00 Test Item Value Reference Range Interpretation Comments POC Hemoglobin (test code = POC 10.2 14.0-18.0 Hemoglobin) [facility]2018-04-05 16:20:00 Test Item Value Reference Range Interpretation Comments POC Carbon Dioxide (test code = POC 24 24-32 Carbon Dioxide) [facility]2018-04-05 16:20:00 Test Item Value Reference Range Interpretation Comments POC BUN (test code = POC BUN) 22 7-22 [facility]2018-04-05 16:20:00 Test Item Value Reference Range Interpretation Comments POC Glucose (test code = POC Glucose) 96 70-99 [facility]2018-04-05 16:20:00 Test Item Value Reference Range Interpretation Comments POC Ion Ca (test code = POC Ion Ca) 1.06 1.05-1.25 [facility]2018-04-05 16:20:00 Test Item Value Reference Range Interpretation Comments POC AGAP (test code = POC AGAP) 16.0 10.0-20.0 [facility]2018-04-05 16:20:00 Test Item Value Reference Range Interpretation Comments POC Potassium (test code = POC 4.2 3.5-5.1 Potassium) [facility]2018-04-05 16:20:00 Test Item Value Reference Range Interpretation Comments POC Chloride (test code = POC Chloride) 103 95-109 [facility]2018-04-05 16:20:00 Test Item Value Reference Range Interpretation Comments POC Sodium (test code = POC Sodium) 137 135-145 [facility]2018-04-05 16:20:00 Test Item Value Reference Range Interpretation Comments eGFR (test code = eGFR) 12 [facility]2018-04-05 16:20:00 Test Item Value Reference Range Interpretation Comments POC Hematocrit (test code = POC 30.0 42.0-54.0 Hematocrit) [facility]2018-04-05 16:20:00 Test Item Value Reference Range Interpretation Comments POC Creatinine (test code = POC 5.0 0.5-1.4 Creatinine) [facility]2018-04-05 16:20:00 Test Item Value Reference Range Interpretation Comments POC Hemoglobin (test code = POC 10.2 14.0-18.0 Hemoglobin) [facility]2018-04-05 16:20:00 Test Item Value Reference Range Interpretation Comments POC Carbon Dioxide (test code = POC 24 24-32 Carbon Dioxide) [facility]2018-04-05 16:20:00 Test Item Value Reference Range Interpretation Comments POC BUN (test code = POC BUN) 22 7-22 [facility]2018-04-05 16:20:00 Test Item Value Reference Range Interpretation Comments POC Glucose (test code = POC Glucose) 96 70-99 [facility]2018-04-05 16:20:00 Test Item Value Reference Range Interpretation Comments POC Ion Ca (test code = POC Ion Ca) 1.06 1.05-1.25 [facility]2018-04-05 16:20:00 Test Item Value Reference Range Interpretation Comments POC AGAP (test code = POC AGAP) 16.0 10.0-20.0 [facility]2018-04-05 16:20:00 Test Item Value Reference Range Interpretation Comments POC Potassium (test code = POC 4.2 3.5-5.1 Potassium) [facility]2018-04-05 16:20:00 Test Item Value Reference Range Interpretation Comments POC Chloride (test code = POC Chloride) 103 95-109 [facility]2018-04-05 16:20:00 Test Item Value Reference Range Interpretation Comments POC Sodium (test code = POC Sodium) 137 135-145 [facility]2018-04-05 16:20:00 Test Item Value Reference Range Interpretation Comments eGFR (test code = eGFR) 12 [facility]2018-04-05 16:20:00 Test Item Value Reference Range Interpretation Comments POC Hematocrit (test code = POC 30.0 42.0-54.0 Hematocrit) [facility]2018-04-05 16:20:00 Test Item Value Reference Range Interpretation Comments POC Creatinine (test code = POC 5.0 0.5-1.4 Creatinine) [facility]2018-04-05 16:20:00 Test Item Value Reference Range Interpretation Comments POC Hemoglobin (test code = POC 10.2 14.0-18.0 Hemoglobin) [facility]2018-04-05 16:20:00 Test Item Value Reference Range Interpretation Comments POC Carbon Dioxide (test code = POC 24 24-32 Carbon Dioxide) [facility]2018-04-05 16:20:00 Test Item Value Reference Range Interpretation Comments POC BUN (test code = POC BUN) 22 7-22 [facility]2018-04-05 16:20:00 Test Item Value Reference Range Interpretation Comments POC Glucose (test code = POC Glucose) 96 70-99 [facility]2018-04-05 16:20:00 Test Item Value Reference Range Interpretation Comments POC Ion Ca (test code = POC Ion Ca) 1.06 1.05-1.25 [facility]2018-04-05 16:20:00 Test Item Value Reference Range Interpretation Comments POC AGAP (test code = POC AGAP) 16.0 10.0-20.0 [facility]2018-04-05 16:20:00 Test Item Value Reference Range Interpretation Comments POC Potassium (test code = POC 4.2 3.5-5.1 Potassium) [facility]2018-04-05 16:20:00 Test Item Value Reference Range Interpretation Comments POC Chloride (test code = POC Chloride) 103 95-109 [facility]2018-04-05 16:20:00 Test Item Value Reference Range Interpretation Comments POC Sodium (test code = POC Sodium) 137 135-145 [facility]2018-04-05 16:20:00 Test Item Value Reference Range Interpretation Comments eGFR (test code = eGFR) 12 [facility]2018-04-05 16:20:00 Test Item Value Reference Range Interpretation Comments POC Hematocrit (test code = POC 30.0 42.0-54.0 Hematocrit) [facility]2018-04-05 16:20:00 Test Item Value Reference Range Interpretation Comments POC Creatinine (test code = POC 5.0 0.5-1.4 Creatinine) [facility]2018-04-05 16:20:00 Test Item Value Reference Range Interpretation Comments POC Hemoglobin (test code = POC 10.2 14.0-18.0 Hemoglobin) [facility]2018-04-05 16:20:00 Test Item Value Reference Range Interpretation Comments POC Carbon Dioxide (test code = POC 24 24-32 Carbon Dioxide) [facility]2018-04-05 16:20:00 Test Item Value Reference Range Interpretation Comments POC BUN (test code = POC BUN) 22 7-22 [facility]2018-04-05 16:20:00 Test Item Value Reference Range Interpretation Comments POC Glucose (test code = POC Glucose) 96 70-99 [facility]2018-04-05 16:20:00 Test Item Value Reference Range Interpretation Comments POC Ion Ca (test code = POC Ion Ca) 1.06 1.05-1.25 [facility]2018-04-05 16:20:00 Test Item Value Reference Range Interpretation Comments POC AGAP (test code = POC AGAP) 16.0 10.0-20.0 [facility]2018-04-05 16:20:00 Test Item Value Reference Range Interpretation Comments POC Potassium (test code = POC 4.2 3.5-5.1 Potassium) [facility]2018-04-05 16:20:00 Test Item Value Reference Range Interpretation Comments POC Chloride (test code = POC Chloride) 103 95-109 [facility]2018-04-05 16:20:00 Test Item Value Reference Range Interpretation Comments POC Sodium (test code = POC Sodium) 137 135-145 [facility]2018-04-05 16:20:00 Test Item Value Reference Range Interpretation Comments eGFR (test code = eGFR) 12 [facility]2018-04-05 16:20:00 Test Item Value Reference Range Interpretation Comments POC Hematocrit (test code = POC 30.0 42.0-54.0 Hematocrit) [facility]2018-04-05 16:20:00 Test Item Value Reference Range Interpretation Comments POC Creatinine (test code = POC 5.0 0.5-1.4 Creatinine) [facility]2018-04-05 16:20:00 Test Item Value Reference Range Interpretation Comments POC Hemoglobin (test code = POC 10.2 14.0-18.0 Hemoglobin) [facility]2018-04-05 16:20:00 Test Item Value Reference Range Interpretation Comments POC Carbon Dioxide (test code = POC 24 24-32 Carbon Dioxide) [facility]2018-04-05 16:20:00 Test Item Value Reference Range Interpretation Comments POC BUN (test code = POC BUN) 22 7-22 [facility]2018-04-05 16:20:00 Test Item Value Reference Range Interpretation Comments POC Glucose (test code = POC Glucose) 96 70-99 [facility]2018-04-05 16:20:00 Test Item Value Reference Range Interpretation Comments POC Ion Ca (test code = POC Ion Ca) 1.06 1.05-1.25 [facility]2018-04-05 16:20:00 Test Item Value Reference Range Interpretation Comments POC AGAP (test code = POC AGAP) 16.0 10.0-20.0 [facility]2018-04-05 16:20:00 Test Item Value Reference Range Interpretation Comments POC Potassium (test code = POC 4.2 3.5-5.1 Potassium) [facility]2018-04-05 16:20:00 Test Item Value Reference Range Interpretation Comments POC Chloride (test code = POC Chloride) 103 95-109 [facility]2018-04-05 16:20:00 Test Item Value Reference Range Interpretation Comments POC Sodium (test code = POC Sodium) 137 135-145 [facility]2018-04-05 11:56:00 Test Item Value Reference Range Interpretation Comments eGFR (test code = eGFR) 12 [facility]2018-04-05 11:56:00 Test Item Value Reference Range Interpretation Comments POC Creatinine (test code = POC 5.0 0.5-1.4 Creatinine) [facility]2018-04-05 11:56:00 Test Item Value Reference Range Interpretation Comments POC Glucose (test code = POC Glucose) 109 70-99 [facility]2018-04-05 11:56:00 Test Item Value Reference Range Interpretation Comments POC BUN (test code = POC BUN) 22 7-22 [facility]2018-04-05 11:56:00 Test Item Value Reference Range Interpretation Comments POC Ion Ca (test code = POC Ion Ca) 1.08 1.05-1.25 [facility]2018-04-05 11:56:00 Test Item Value Reference Range Interpretation Comments POC AGAP (test code = POC AGAP) 18.0 10.0-20.0 [facility]2018-04-05 11:56:00 Test Item Value Reference Range Interpretation Comments POC Hemoglobin (test code = POC 11.9 14.0-18.0 Hemoglobin) [facility]2018-04-05 11:56:00 Test Item Value Reference Range Interpretation Comments POC Hematocrit (test code = POC 35.0 42.0-54.0 Hematocrit) [facility]2018-04-05 11:56:00 Test Item Value Reference Range Interpretation Comments POC Chloride (test code = POC Chloride) 103 95-109 [facility]2018-04-05 11:56:00 Test Item Value Reference Range Interpretation Comments POC Sodium (test code = POC Sodium) 139 135-145 [facility]2018-04-05 11:56:00 Test Item Value Reference Range Interpretation Comments POC Potassium (test code = POC 3.7 3.5-5.1 Potassium) [facility]2018-04-05 11:56:00 Test Item Value Reference Range Interpretation Comments POC Carbon Dioxide (test code = POC 22 24-32 Carbon Dioxide) [facility]2018-04-05 11:56:00 Test Item Value Reference Range Interpretation Comments eGFR (test code = eGFR) 12 [facility]2018-04-05 11:56:00 Test Item Value Reference Range Interpretation Comments POC Creatinine (test code = POC 5.0 0.5-1.4 Creatinine) [facility]2018-04-05 11:56:00 Test Item Value Reference Range Interpretation Comments POC Glucose (test code = POC Glucose) 109 70-99 [facility]2018-04-05 11:56:00 Test Item Value Reference Range Interpretation Comments POC BUN (test code = POC BUN) 22 7-22 [facility]2018-04-05 11:56:00 Test Item Value Reference Range Interpretation Comments POC Ion Ca (test code = POC Ion Ca) 1.08 1.05-1.25 [facility]2018-04-05 11:56:00 Test Item Value Reference Range Interpretation Comments POC AGAP (test code = POC AGAP) 18.0 10.0-20.0 [facility]2018-04-05 11:56:00 Test Item Value Reference Range Interpretation Comments POC Hemoglobin (test code = POC 11.9 14.0-18.0 Hemoglobin) [facility]2018-04-05 11:56:00 Test Item Value Reference Range Interpretation Comments POC Hematocrit (test code = POC 35.0 42.0-54.0 Hematocrit) [facility]2018-04-05 11:56:00 Test Item Value Reference Range Interpretation Comments POC Chloride (test code = POC Chloride) 103 95-109 [facility]2018-04-05 11:56:00 Test Item Value Reference Range Interpretation Comments POC Sodium (test code = POC Sodium) 139 135-145 [facility]2018-04-05 11:56:00 Test Item Value Reference Range Interpretation Comments POC Potassium (test code = POC 3.7 3.5-5.1 Potassium) [facility]2018-04-05 11:56:00 Test Item Value Reference Range Interpretation Comments POC Carbon Dioxide (test code = POC 22 24-32 Carbon Dioxide) [facility]2018-04-05 11:56:00 Test Item Value Reference Range Interpretation Comments eGFR (test code = eGFR) 12 [facility]2018-04-05 11:56:00 Test Item Value Reference Range Interpretation Comments POC Creatinine (test code = POC 5.0 0.5-1.4 Creatinine) [facility]2018-04-05 11:56:00 Test Item Value Reference Range Interpretation Comments POC Glucose (test code = POC Glucose) 109 70-99 [facility]2018-04-05 11:56:00 Test Item Value Reference Range Interpretation Comments POC BUN (test code = POC BUN) 22 7-22 [facility]2018-04-05 11:56:00 Test Item Value Reference Range Interpretation Comments POC Ion Ca (test code = POC Ion Ca) 1.08 1.05-1.25 [facility]2018-04-05 11:56:00 Test Item Value Reference Range Interpretation Comments POC AGAP (test code = POC AGAP) 18.0 10.0-20.0 [facility]2018-04-05 11:56:00 Test Item Value Reference Range Interpretation Comments POC Hemoglobin (test code = POC 11.9 14.0-18.0 Hemoglobin) [facility]2018-04-05 11:56:00 Test Item Value Reference Range Interpretation Comments POC Hematocrit (test code = POC 35.0 42.0-54.0 Hematocrit) [facility]2018-04-05 11:56:00 Test Item Value Reference Range Interpretation Comments POC Chloride (test code = POC Chloride) 103 95-109 [facility]2018-04-05 11:56:00 Test Item Value Reference Range Interpretation Comments POC Sodium (test code = POC Sodium) 139 135-145 [facility]2018-04-05 11:56:00 Test Item Value Reference Range Interpretation Comments POC Potassium (test code = POC 3.7 3.5-5.1 Potassium) [facility]2018-04-05 11:56:00 Test Item Value Reference Range Interpretation Comments POC Carbon Dioxide (test code = POC 22 24-32 Carbon Dioxide) [facility]2018-04-05 11:56:00 Test Item Value Reference Range Interpretation Comments eGFR (test code = eGFR) 12 [facility]2018-04-05 11:56:00 Test Item Value Reference Range Interpretation Comments POC Creatinine (test code = POC 5.0 0.5-1.4 Creatinine) [facility]2018-04-05 11:56:00 Test Item Value Reference Range Interpretation Comments POC Glucose (test code = POC Glucose) 109 70-99 [facility]2018-04-05 11:56:00 Test Item Value Reference Range Interpretation Comments POC BUN (test code = POC BUN) 22 7-22 [facility]2018-04-05 11:56:00 Test Item Value Reference Range Interpretation Comments POC Ion Ca (test code = POC Ion Ca) 1.08 1.05-1.25 [facility]2018-04-05 11:56:00 Test Item Value Reference Range Interpretation Comments POC AGAP (test code = POC AGAP) 18.0 10.0-20.0 [facility]2018-04-05 11:56:00 Test Item Value Reference Range Interpretation Comments POC Hemoglobin (test code = POC 11.9 14.0-18.0 Hemoglobin) [facility]2018-04-05 11:56:00 Test Item Value Reference Range Interpretation Comments POC Hematocrit (test code = POC 35.0 42.0-54.0 Hematocrit) [facility]2018-04-05 11:56:00 Test Item Value Reference Range Interpretation Comments POC Chloride (test code = POC Chloride) 103 95-109 [facility]2018-04-05 11:56:00 Test Item Value Reference Range Interpretation Comments POC Sodium (test code = POC Sodium) 139 135-145 [facility]2018-04-05 11:56:00 Test Item Value Reference Range Interpretation Comments POC Potassium (test code = POC 3.7 3.5-5.1 Potassium) [facility]2018-04-05 11:56:00 Test Item Value Reference Range Interpretation Comments POC Carbon Dioxide (test code = POC 22 24-32 Carbon Dioxide) [facility]2018-04-05 11:56:00 Test Item Value Reference Range Interpretation Comments eGFR (test code = eGFR) 12 [facility]2018-04-05 11:56:00 Test Item Value Reference Range Interpretation Comments POC Creatinine (test code = POC 5.0 0.5-1.4 Creatinine) [facility]2018-04-05 11:56:00 Test Item Value Reference Range Interpretation Comments POC Glucose (test code = POC Glucose) 109 70-99 [facility]2018-04-05 11:56:00 Test Item Value Reference Range Interpretation Comments POC BUN (test code = POC BUN) 22 7-22 [facility]2018-04-05 11:56:00 Test Item Value Reference Range Interpretation Comments POC Ion Ca (test code = POC Ion Ca) 1.08 1.05-1.25 [facility]2018-04-05 11:56:00 Test Item Value Reference Range Interpretation Comments POC AGAP (test code = POC AGAP) 18.0 10.0-20.0 [facility]2018-04-05 11:56:00 Test Item Value Reference Range Interpretation Comments POC Hemoglobin (test code = POC 11.9 14.0-18.0 Hemoglobin) [facility]2018-04-05 11:56:00 Test Item Value Reference Range Interpretation Comments POC Hematocrit (test code = POC 35.0 42.0-54.0 Hematocrit) [facility]2018-04-05 11:56:00 Test Item Value Reference Range Interpretation Comments POC Chloride (test code = POC Chloride) 103 95-109 [facility]2018-04-05 11:56:00 Test Item Value Reference Range Interpretation Comments POC Sodium (test code = POC Sodium) 139 135-145 [facility]2018-04-05 11:56:00 Test Item Value Reference Range Interpretation Comments POC Potassium (test code = POC 3.7 3.5-5.1 Potassium) [facility]2018-04-05 11:56:00 Test Item Value Reference Range Interpretation Comments POC Carbon Dioxide (test code = POC 22 24-32 Carbon Dioxide) [facility]2018-04-05 11:56:00 Test Item Value Reference Range Interpretation Comments eGFR (test code = eGFR) 12 [facility]2018-04-05 11:56:00 Test Item Value Reference Range Interpretation Comments POC Creatinine (test code = POC 5.0 0.5-1.4 Creatinine) [facility]2018-04-05 11:56:00 Test Item Value Reference Range Interpretation Comments POC Glucose (test code = POC Glucose) 109 70-99 [facility]2018-04-05 11:56:00 Test Item Value Reference Range Interpretation Comments POC BUN (test code = POC BUN) 22 7-22 [facility]2018-04-05 11:56:00 Test Item Value Reference Range Interpretation Comments POC Ion Ca (test code = POC Ion Ca) 1.08 1.05-1.25 [facility]2018-04-05 11:56:00 Test Item Value Reference Range Interpretation Comments POC AGAP (test code = POC AGAP) 18.0 10.0-20.0 [facility]2018-04-05 11:56:00 Test Item Value Reference Range Interpretation Comments POC Hemoglobin (test code = POC 11.9 14.0-18.0 Hemoglobin) [facility]2018-04-05 11:56:00 Test Item Value Reference Range Interpretation Comments POC Hematocrit (test code = POC 35.0 42.0-54.0 Hematocrit) [facility]2018-04-05 11:56:00 Test Item Value Reference Range Interpretation Comments POC Chloride (test code = POC Chloride) 103 95-109 [facility]2018-04-05 11:56:00 Test Item Value Reference Range Interpretation Comments POC Sodium (test code = POC Sodium) 139 135-145 [facility]2018-04-05 11:56:00 Test Item Value Reference Range Interpretation Comments POC Potassium (test code = POC 3.7 3.5-5.1 Potassium) [facility]2018-04-05 11:56:00 Test Item Value Reference Range Interpretation Comments POC Carbon Dioxide (test code = POC 22 24-32 Carbon Dioxide) [facility]2018-02-15 21:17:00 Test Item Value Reference Range Interpretation Comments POC Ion Ca (test code = POC Ion Ca) 1.05 1.05-1.25 [facility]2018-02-15 21:17:00 Test Item Value Reference Range Interpretation Comments POC Hemoglobin (test code = POC 11.6 14.0-18.0 Hemoglobin) [facility]2018-02-15 21:17:00 Test Item Value Reference Range Interpretation Comments POC AGAP (test code = POC AGAP) 18.0 10.0-20.0 [facility]2018-02-15 21:17:00 Test Item Value Reference Range Interpretation Comments POC Glucose (test code = POC Glucose) 88 70-99 [facility]2018-02-15 21:17:00 Test Item Value Reference Range Interpretation Comments POC Hematocrit (test code = POC 34.0 42.0-54.0 Hematocrit) [facility]2018-02-15 21:17:00 Test Item Value Reference Range Interpretation Comments POC Carbon Dioxide (test code = POC 24 24-32 Carbon Dioxide) [facility]2018-02-15 21:17:00 Test Item Value Reference Range Interpretation Comments POC Potassium (test code = POC 4.2 3.5-5.1 Potassium) [facility]2018-02-15 21:17:00 Test Item Value Reference Range Interpretation Comments POC Creatinine (test code = POC 6.2 0.5-1.4 Creatinine) [facility]2018-02-15 21:17:00 Test Item Value Reference Range Interpretation Comments POC BUN (test code = POC BUN) 27 7-22 [facility]2018-02-15 21:17:00 Test Item Value Reference Range Interpretation Comments POC Chloride (test code = POC Chloride) 103 95-109 [facility]2018-02-15 21:17:00 Test Item Value Reference Range Interpretation Comments POC Sodium (test code = POC Sodium) 139 135-145 [facility]2018-02-15 21:17:00 Test Item Value Reference Range Interpretation Comments eGFR (test code = eGFR) 9 [facility]2018-02-15 21:17:00 Test Item Value Reference Range Interpretation Comments POC Ion Ca (test code = POC Ion Ca) 1.05 1.05-1.25 [facility]2018-02-15 21:17:00 Test Item Value Reference Range Interpretation Comments POC Hemoglobin (test code = POC 11.6 14.0-18.0 Hemoglobin) [facility]2018-02-15 21:17:00 Test Item Value Reference Range Interpretation Comments POC AGAP (test code = POC AGAP) 18.0 10.0-20.0 [facility]2018-02-15 21:17:00 Test Item Value Reference Range Interpretation Comments POC Glucose (test code = POC Glucose) 88 70-99 [facility]2018-02-15 21:17:00 Test Item Value Reference Range Interpretation Comments POC Hematocrit (test code = POC 34.0 42.0-54.0 Hematocrit) [facility]2018-02-15 21:17:00 Test Item Value Reference Range Interpretation Comments POC Carbon Dioxide (test code = POC 24 24-32 Carbon Dioxide) [facility]2018-02-15 21:17:00 Test Item Value Reference Range Interpretation Comments POC Potassium (test code = POC 4.2 3.5-5.1 Potassium) [facility] [facility]2018-02-15 21:17:00 Test Item Value Reference Range Interpretation Comments POC Creatinine (test code = POC 6.2 0.5-1.4 Creatinine) [facility]2018-02-15 21:17:00 Test Item Value Reference Range Interpretation Comments POC BUN (test code = POC BUN) 27 7-22 [facility]2018-02-15 21:17:00 Test Item Value Reference Range Interpretation Comments POC Chloride (test code = POC Chloride) 103 95-109 [facility]2018-02-15 21:17:00 Test Item Value Reference Range Interpretation Comments POC Sodium (test code = POC Sodium) 139 135-145 [facility]2018-02-15 21:17:00 Test Item Value Reference Range Interpretation Comments eGFR (test code = eGFR) 9 [facility]2018-02-15 21:17:00 Test Item Value Reference Range Interpretation Comments POC Ion Ca (test code = POC Ion Ca) 1.05 1.05-1.25 [facility]2018-02-15 21:17:00 Test Item Value Reference Range Interpretation Comments POC Hemoglobin (test code = POC 11.6 14.0-18.0 Hemoglobin) [facility]2018-02-15 21:17:00 Test Item Value Reference Range Interpretation Comments POC AGAP (test code = POC AGAP) 18.0 10.0-20.0 [facility]2018-02-15 21:17:00 Test Item Value Reference Range Interpretation Comments POC Glucose (test code = POC Glucose) 88 70-99 [facility]2018-02-15 21:17:00 Test Item Value Reference Range Interpretation Comments POC Hematocrit (test code = POC 34.0 42.0-54.0 Hematocrit) [facility]2018-02-15 21:17:00 Test Item Value Reference Range Interpretation Comments POC Carbon Dioxide (test code = POC 24 24-32 Carbon Dioxide) [facility]2018-02-15 21:17:00 Test Item Value Reference Range Interpretation Comments POC Potassium (test code = POC 4.2 3.5-5.1 Potassium) [facility]2018-02-15 21:17:00 Test Item Value Reference Range Interpretation Comments POC Creatinine (test code = POC 6.2 0.5-1.4 Creatinine) [facility]2018-02-15 21:17:00 Test Item Value Reference Range Interpretation Comments POC BUN (test code = POC BUN) 27 7-22 [facility]2018-02-15 21:17:00 Test Item Value Reference Range Interpretation Comments POC Chloride (test code = POC Chloride) 103 95-109 [facility]2018-02-15 21:17:00 Test Item Value Reference Range Interpretation Comments POC Sodium (test code = POC Sodium) 139 135-145 [facility]2018-02-15 21:17:00 Test Item Value Reference Range Interpretation Comments eGFR (test code = eGFR) 9 [facility]2018-02-15 21:17:00 Test Item Value Reference Range Interpretation Comments POC Ion Ca (test code = POC Ion Ca) 1.05 1.05-1.25 [facility]2018-02-15 21:17:00 Test Item Value Reference Range Interpretation Comments POC Hemoglobin (test code = POC 11.6 14.0-18.0 Hemoglobin) [facility]2018-02-15 21:17:00 Test Item Value Reference Range Interpretation Comments POC AGAP (test code = POC AGAP) 18.0 10.0-20.0 [facility]2018-02-15 21:17:00 Test Item Value Reference Range Interpretation Comments POC Glucose (test code = POC Glucose) 88 70-99 [facility]2018-02-15 21:17:00 Test Item Value Reference Range Interpretation Comments POC Hematocrit (test code = POC 34.0 42.0-54.0 Hematocrit) [facility]2018-02-15 21:17:00 Test Item Value Reference Range Interpretation Comments POC Carbon Dioxide (test code = POC 24 24-32 Carbon Dioxide) [facility]2018-02-15 21:17:00 Test Item Value Reference Range Interpretation Comments POC Potassium (test code = POC 4.2 3.5-5.1 Potassium) [facility]2018-02-15 21:17:00 Test Item Value Reference Range Interpretation Comments POC Creatinine (test code = POC 6.2 0.5-1.4 Creatinine) [facility]2018-02-15 21:17:00 Test Item Value Reference Range Interpretation Comments POC BUN (test code = POC BUN) 27 7-22 [facility]2018-02-15 21:17:00 Test Item Value Reference Range Interpretation Comments POC Chloride (test code = POC Chloride) 103 95-109 [facility]2018-02-15 21:17:00 Test Item Value Reference Range Interpretation Comments POC Sodium (test code = POC Sodium) 139 135-145 [facility]2018-02-15 21:17:00 Test Item Value Reference Range Interpretation Comments eGFR (test code = eGFR) 9 [facility]2018-02-15 21:17:00 Test Item Value Reference Range Interpretation Comments POC Ion Ca (test code = POC Ion Ca) 1.05 1.05-1.25 [facility]2018-02-15 21:17:00 Test Item Value Reference Range Interpretation Comments POC Hemoglobin (test code = POC 11.6 14.0-18.0 Hemoglobin) [facility]2018-02-15 21:17:00 Test Item Value Reference Range Interpretation Comments POC AGAP (test code = POC AGAP) 18.0 10.0-20.0 [facility]2018-02-15 21:17:00 Test Item Value Reference Range Interpretation Comments POC Glucose (test code = POC Glucose) 88 70-99 [facility]2018-02-15 21:17:00 Test Item Value Reference Range Interpretation Comments POC Hematocrit (test code = POC 34.0 42.0-54.0 Hematocrit) [facility]2018-02-15 21:17:00 Test Item Value Reference Range Interpretation Comments POC Carbon Dioxide (test code = POC 24 24-32 Carbon Dioxide) [facility]2018-02-15 21:17:00 Test Item Value Reference Range Interpretation Comments POC Potassium (test code = POC 4.2 3.5-5.1 Potassium) [facility]2018-02-15 21:17:00 Test Item Value Reference Range Interpretation Comments POC Creatinine (test code = POC 6.2 0.5-1.4 Creatinine) [facility]2018-02-15 21:17:00 Test Item Value Reference Range Interpretation Comments POC BUN (test code = POC BUN) 27 7-22 [facility]2018-02-15 21:17:00 Test Item Value Reference Range Interpretation Comments POC Chloride (test code = POC Chloride) 103 95-109 [facility]2018-02-15 21:17:00 Test Item Value Reference Range Interpretation Comments POC Sodium (test code = POC Sodium) 139 135-145 [facility]2018-02-15 21:17:00 Test Item Value Reference Range Interpretation Comments eGFR (test code = eGFR) 9 [facility]2018-02-15 21:17:00 Test Item Value Reference Range Interpretation Comments POC Ion Ca (test code = POC Ion Ca) 1.05 1.05-1.25 [facility]2018-02-15 21:17:00 Test Item Value Reference Range Interpretation Comments POC Hemoglobin (test code = POC 11.6 14.0-18.0 Hemoglobin) [facility]2018-02-15 21:17:00 Test Item Value Reference Range Interpretation Comments POC AGAP (test code = POC AGAP) 18.0 10.0-20.0 [facility]2018-02-15 21:17:00 Test Item Value Reference Range Interpretation Comments POC Glucose (test code = POC Glucose) 88 70-99 [facility]2018-02-15 21:17:00 Test Item Value Reference Range Interpretation Comments POC Hematocrit (test code = POC 34.0 42.0-54.0 Hematocrit) [facility]2018-02-15 21:17:00 Test Item Value Reference Range Interpretation Comments POC Carbon Dioxide (test code = POC 24 24-32 Carbon Dioxide) [facility]2018-02-15 21:17:00 Test Item Value Reference Range Interpretation Comments POC Potassium (test code = POC 4.2 3.5-5.1 Potassium) [facility]2018-02-15 21:17:00 Test Item Value Reference Range Interpretation Comments POC Creatinine (test code = POC 6.2 0.5-1.4 Creatinine) [facility]2018-02-15 21:17:00 Test Item Value Reference Range Interpretation Comments POC BUN (test code = POC BUN) 27 7-22 [facility]2018-02-15 21:17:00 Test Item Value Reference Range Interpretation Comments POC Chloride (test code = POC Chloride) 103 95-109 [facility]2018-02-15 21:17:00 Test Item Value Reference Range Interpretation Comments POC Sodium (test code = POC Sodium) 139 135-145 [facility]2018-02-15 21:17:00 Test Item Value Reference Range Interpretation Comments eGFR (test code = eGFR) 9 [facility]2018-02-15 17:38:00 Test Item Value Reference Range Interpretation Comments eGFR (test code = eGFR) 9 [facility]2018-02-15 17:38:00 Test Item Value Reference Range Interpretation Comments POC Glucose (test code = POC Glucose) 108 70-99 [facility]2018-02-15 17:38:00 Test Item Value Reference Range Interpretation Comments POC Hematocrit (test code = POC 39.0 42.0-54.0 Hematocrit) [facility]2018-02-15 17:38:00 Test Item Value Reference Range Interpretation Comments POC Hemoglobin (test code = POC 13.3 14.0-18.0 Hemoglobin) [facility]2018-02-15 17:38:00 Test Item Value Reference Range Interpretation Comments POC Creatinine (test code = POC 6.2 0.5-1.4 Creatinine) [facility]2018-02-15 17:38:00 Test Item Value Reference Range Interpretation Comments POC BUN (test code = POC BUN) 27 7-22 [facility]2018-02-15 17:38:00 Test Item Value Reference Range Interpretation Comments POC Ion Ca (test code = POC Ion Ca) 1.13 1.05-1.25 [facility]2018-02-15 17:38:00 Test Item Value Reference Range Interpretation Comments POC AGAP (test code = POC AGAP) 17.0 10.0-20.0 [facility]2018-02-15 17:38:00 Test Item Value Reference Range Interpretation Comments POC Potassium (test code = POC 3.9 3.5-5.1 Potassium) [facility]2018-02-15 17:38:00 Test Item Value Reference Range Interpretation Comments POC Chloride (test code = POC Chloride) 103 95-109 [facility]2018-02-15 17:38:00 Test Item Value Reference Range Interpretation Comments POC Carbon Dioxide (test code = POC 23 24-32 Carbon Dioxide) [facility]2018-02-15 17:38:00 Test Item Value Reference Range Interpretation Comments POC Sodium (test code = POC Sodium) 138 135-145 [facility]2018-02-15 17:38:00 Test Item Value Reference Range Interpretation Comments eGFR (test code = eGFR) 9 [facility]2018-02-15 17:38:00 Test Item Value Reference Range Interpretation Comments POC Glucose (test code = POC Glucose) 108 70-99 [facility]2018-02-15 17:38:00 Test Item Value Reference Range Interpretation Comments POC Hematocrit (test code = POC 39.0 42.0-54.0 Hematocrit) [facility]2018-02-15 17:38:00 Test Item Value Reference Range Interpretation Comments POC Hemoglobin (test code = POC 13.3 14.0-18.0 Hemoglobin) [facility]2018-02-15 17:38:00 Test Item Value Reference Range Interpretation Comments POC Creatinine (test code = POC 6.2 0.5-1.4 Creatinine) [facility]2018-02-15 17:38:00 Test Item Value Reference Range Interpretation Comments POC BUN (test code = POC BUN) 27 7-22 [facility]2018-02-15 17:38:00 Test Item Value Reference Range Interpretation Comments POC Ion Ca (test code = POC Ion Ca) 1.13 1.05-1.25 [facility]2018-02-15 17:38:00 Test Item Value Reference Range Interpretation Comments POC AGAP (test code = POC AGAP) 17.0 10.0-20.0 [facility]2018-02-15 17:38:00 Test Item Value Reference Range Interpretation Comments POC Potassium (test code = POC 3.9 3.5-5.1 Potassium) [facility]2018-02-15 17:38:00 Test Item Value Reference Range Interpretation Comments POC Chloride (test code = POC Chloride) 103 95-109 [facility]2018-02-15 17:38:00 Test Item Value Reference Range Interpretation Comments POC Carbon Dioxide (test code = POC 23 24-32 Carbon Dioxide) [facility]2018-02-15 17:38:00 Test Item Value Reference Range Interpretation Comments POC Sodium (test code = POC Sodium) 138 135-145 [facility]2018-02-15 17:38:00 Test Item Value Reference Range Interpretation Comments eGFR (test code = eGFR) 9 [facility]2018-02-15 17:38:00 Test Item Value Reference Range Interpretation Comments POC Glucose (test code = POC Glucose) 108 70-99 [facility]2018-02-15 17:38:00 Test Item Value Reference Range Interpretation Comments POC Hematocrit (test code = POC 39.0 42.0-54.0 Hematocrit) [facility]2018-02-15 17:38:00 Test Item Value Reference Range Interpretation Comments POC Hemoglobin (test code = POC 13.3 14.0-18.0 Hemoglobin) [facility]2018-02-15 17:38:00 Test Item Value Reference Range Interpretation Comments POC Creatinine (test code = POC 6.2 0.5-1.4 Creatinine) [facility]2018-02-15 17:38:00 Test Item Value Reference Range Interpretation Comments POC BUN (test code = POC BUN) 27 7- [facility]2018-02-15 17:38:00 Test Item Value Reference Range Interpretation Comments POC Ion Ca (test code = POC Ion Ca) 1.13 1.05-1.25 [facility]2018-02-15 17:38:00 Test Item Value Reference Range Interpretation Comments POC AGAP (test code = POC AGAP) 17.0 10.0-20.0 [facility]2018-02-15 17:38:00 Test Item Value Reference Range Interpretation Comments POC Potassium (test code = POC 3.9 3.5-5.1 Potassium) [facility]2018-02-15 17:38:00 Test Item Value Reference Range Interpretation Comments POC Chloride (test code = POC Chloride) 103 95-109 [facility]2018-02-15 17:38:00 Test Item Value Reference Range Interpretation Comments POC Carbon Dioxide (test code = POC 23 24-32 Carbon Dioxide) [facility]2018-02-15 17:38:00 Test Item Value Reference Range Interpretation Comments POC Sodium (test code = POC Sodium) 138 135-145 [facility]2018-02-15 17:38:00 Test Item Value Reference Range Interpretation Comments eGFR (test code = eGFR) 9 [facility]2018-02-15 17:38:00 Test Item Value Reference Range Interpretation Comments POC Glucose (test code = POC Glucose) 108 70-99 [facility]2018-02-15 17:38:00 Test Item Value Reference Range Interpretation Comments POC Hematocrit (test code = POC 39.0 42.0-54.0 Hematocrit) [facility]2018-02-15 17:38:00 Test Item Value Reference Range Interpretation Comments POC Hemoglobin (test code = POC 13.3 14.0-18.0 Hemoglobin) [facility]2018-02-15 17:38:00 Test Item Value Reference Range Interpretation Comments POC Creatinine (test code = POC 6.2 0.5-1.4 Creatinine) [facility]2018-02-15 17:38:00 Test Item Value Reference Range Interpretation Comments POC BUN (test code = POC BUN) 27 7- [facility]2018-02-15 17:38:00 Test Item Value Reference Range Interpretation Comments POC Ion Ca (test code = POC Ion Ca) 1.13 1.05-1.25 [facility]2018-02-15 17:38:00 Test Item Value Reference Range Interpretation Comments POC AGAP (test code = POC AGAP) 17.0 10.0-20.0 [facility]2018-02-15 17:38:00 Test Item Value Reference Range Interpretation Comments POC Potassium (test code = POC 3.9 3.5-5.1 Potassium) [facility]2018-02-15 17:38:00 Test Item Value Reference Range Interpretation Comments POC Chloride (test code = POC Chloride) 103 95-109 [facility]2018-02-15 17:38:00 Test Item Value Reference Range Interpretation Comments POC Carbon Dioxide (test code = POC 23 24-32 Carbon Dioxide) [facility]2018-02-15 17:38:00 Test Item Value Reference Range Interpretation Comments POC Sodium (test code = POC Sodium) 138 135-145 [facility]2018-02-15 17:38:00 Test Item Value Reference Range Interpretation Comments eGFR (test code = eGFR) 9 [facility]2018-02-15 17:38:00 Test Item Value Reference Range Interpretation Comments POC Glucose (test code = POC Glucose) 108 70-99 [facility]2018-02-15 17:38:00 Test Item Value Reference Range Interpretation Comments POC Hematocrit (test code = POC 39.0 42.0-54.0 Hematocrit) [facility]2018-02-15 17:38:00 Test Item Value Reference Range Interpretation Comments POC Hemoglobin (test code = POC 13.3 14.0-18.0 Hemoglobin) [facility]2018-02-15 17:38:00 Test Item Value Reference Range Interpretation Comments POC Creatinine (test code = POC 6.2 0.5-1.4 Creatinine) [facility]2018-02-15 17:38:00 Test Item Value Reference Range Interpretation Comments POC BUN (test code = POC BUN) 27 7-22 [facility]2018-02-15 17:38:00 Test Item Value Reference Range Interpretation Comments POC Ion Ca (test code = POC Ion Ca) 1.13 1.05-1.25 [facility]2018-02-15 17:38:00 Test Item Value Reference Range Interpretation Comments POC AGAP (test code = POC AGAP) 17.0 10.0-20.0 [facility]2018-02-15 17:38:00 Test Item Value Reference Range Interpretation Comments POC Potassium (test code = POC 3.9 3.5-5.1 Potassium) [facility]2018-02-15 17:38:00 Test Item Value Reference Range Interpretation Comments POC Chloride (test code = POC Chloride) 103 95-109 [facility]2018-02-15 17:38:00 Test Item Value Reference Range Interpretation Comments POC Carbon Dioxide (test code = POC 23 24-32 Carbon Dioxide) [facility]2018-02-15 17:38:00 Test Item Value Reference Range Interpretation Comments POC Sodium (test code = POC Sodium) 138 135-145 [facility]2018-02-15 17:38:00 Test Item Value Reference Range Interpretation Comments eGFR (test code = eGFR) 9 [facility]2018-02-15 17:38:00 Test Item Value Reference Range Interpretation Comments POC Glucose (test code = POC Glucose) 108 70-99 [facility]2018-02-15 17:38:00 Test Item Value Reference Range Interpretation Comments POC Hematocrit (test code = POC 39.0 42.0-54.0 Hematocrit) [facility]2018-02-15 17:38:00 Test Item Value Reference Range Interpretation Comments POC Hemoglobin (test code = POC 13.3 14.0-18.0 Hemoglobin) [facility]2018-02-15 17:38:00 Test Item Value Reference Range Interpretation Comments POC Creatinine (test code = POC 6.2 0.5-1.4 Creatinine) [facility]2018-02-15 17:38:00 Test Item Value Reference Range Interpretation Comments POC BUN (test code = POC BUN) 27 7-22 [facility]2018-02-15 17:38:00 Test Item Value Reference Range Interpretation Comments POC Ion Ca (test code = POC Ion Ca) 1.13 1.05-1.25 [facility]2018-02-15 17:38:00 Test Item Value Reference Range Interpretation Comments POC AGAP (test code = POC AGAP) 17.0 10.0-20.0 [facility]2018-02-15 17:38:00 Test Item Value Reference Range Interpretation Comments POC Potassium (test code = POC 3.9 3.5-5.1 Potassium) [facility]2018-02-15 17:38:00 Test Item Value Reference Range Interpretation Comments POC Chloride (test code = POC Chloride) 103 95-109 [facility]2018-02-15 17:38:00 Test Item Value Reference Range Interpretation Comments POC Carbon Dioxide (test code = POC 23 24-32 Carbon Dioxide) [facility]2018-02-15 17:38:00 Test Item Value Reference Range Interpretation Comments POC Sodium (test code = POC Sodium) 138 135-145 [id number]:16:00 Test Item Value Reference Range Interpretation Comments POC Hematocrit (test code = POC 34.0 42.0-54.0 Hematocrit) [id number] 17:16:00 Test Item Value Reference Range Interpretation Comments POC Potassium (test code = POC 4.3 3.5-5.1 Potassium) [facility]AahbgcuXUKMWEIRKZ4664-13-65 17:16:00 Test Item Value Reference Range Interpretation Comments POC Sodium (test code = POC Sodium) 140 135-145 [facility] TexasTarshutJBAVWFIWJE6165-28-40 17:16:00 Test Item Value Reference Range Interpretation Comments POC Chloride (test code = POC Chloride) 106 95-109 [facility] TexasWoeblecPKTJINZZOS8524-82-33 17:16:00 Test Item Value Reference Range Interpretation Comments POC Glucose (test code = POC Glucose) 118 70-99 [facility] TexasIxgqfivPUQGWAPMSR2439-85-75 17:16:00 Test Item Value Reference Range Interpretation Comments POC BUN (test code = POC BUN) 21 7-22 [facility]HtotlhrASKEOQCIHV1257-02-38 17:16:00 Test Item Value Reference Range Interpretation Comments POC Hemoglobin (test code = POC 11.6 14.0-18.0 Hemoglobin) [facility]SymzvajBAOHBJAUYG3284-57-31 17:16:00 Test Item Value Reference Range Interpretation Comments POC Hematocrit (test code = POC 34.0 42.0-54.0 Hematocrit) [facility] TexasHpdcmhcRXTKQENCDF7559-50-44 17:16:00 Test Item Value Reference Range Interpretation Comments POC Potassium (test code = POC 4.3 3.5-5.1 Potassium) [facility]UiqnbmlSIPZVRSNWY9967-89-14 17:16:00 Test Item Value Reference Range Interpretation Comments POC Sodium (test code = POC Sodium) 140 135-145 [facility] TexasSrkocfaZFZYUBCODI2883-94-62 17:16:00 Test Item Value Reference Range Interpretation Comments POC Chloride (test code = POC Chloride) 106 95-109 [facility]XgtylfdNQAAIGINHR3560-19-28 17:16:00 Test Item Value Reference Range Interpretation Comments POC Glucose (test code = POC Glucose) 118 70-99 [facility] TexasOryumakHULYMRNTNQ2296-44-82 17:16:00 Test Item Value Reference Range Interpretation Comments POC BUN (test code = POC BUN) 04-19 [facility]IvqsgehXNFTQMRIJF5248-52-50 17:16:00 Test Item Value Reference Range Interpretation Comments POC Hemoglobin (test code = POC 11.6 14.0-18.0 Hemoglobin) [facility] TexasMceexcuTQARTQTNMO3474-30-76 17:16:00 Test Item Value Reference Range Interpretation Comments POC Hematocrit (test code = POC 34.0 42.0-54.0 Hematocrit) [facility] TexasRhczwhfTDJZQATKTX6205-16-67 17:16:00 Test Item Value Reference Range Interpretation Comments POC Potassium (test code = POC 4.3 3.5-5.1 Potassium) [facility]UblrjmvVBZYRIWQCD0557-76-22 17:16:00 Test Item Value Reference Range Interpretation Comments POC Sodium (test code = POC Sodium) 140 135-145 [facility] TexasBhaaskpZLPPSCJUIL8282-84-96 17:16:00 Test Item Value Reference Range Interpretation Comments POC Chloride (test code = POC Chloride) 106 95-109 [facility] TexasSfnnzmuWRFXXOLVIE8066-58-40 17:16:00 Test Item Value Reference Range Interpretation Comments POC Glucose (test code = POC Glucose) 118 70-99 [facility] TexasKxboxywWOSCAQEUCB4029-93-31 17:16:00 Test Item Value Reference Range Interpretation Comments POC BUN (test code = POC BUN) 04-19 [facility] TexasSdkmhseSGJRDFPQZF5756-73-87 17:16:00 Test Item Value Reference Range Interpretation Comments POC Hemoglobin (test code = POC 11.6 14.0-18.0 Hemoglobin) [facility] TexasMlbvoygRRCXOAMUQH9026-92-24 17:16:00 Test Item Value Reference Range Interpretation Comments POC Hematocrit (test code = POC 34.0 42.0-54.0 Hematocrit) [facility] TexasQyqxrwtCNIFCGGTDF0715-78-37 17:16:00 Test Item Value Reference Range Interpretation Comments POC Potassium (test code = POC 4.3 3.5-5.1 Potassium) [facility] TexasTzcdvziRHDUTBPSTI2320-46-92 17:16:00 Test Item Value Reference Range Interpretation Comments POC Sodium (test code = POC Sodium) 140 135-145 [facility] TexasGpmibntCSQXWZZEKX9021-11-10 17:16:00 Test Item Value Reference Range Interpretation Comments POC Chloride (test code = POC Chloride) 106 95-109 [facility] TexasOverkfePOATOAVLOE4483-02-59 17:16:00 Test Item Value Reference Range Interpretation Comments POC Glucose (test code = POC Glucose) 118 70-99 [facility]JyddvmnTRYSTANATP3901-02-45 17:16:00 Test Item Value Reference Range Interpretation Comments POC BUN (test code = POC BUN) 04-19 [facility] TexasBncvzkzITTKHFPOPS9422-56-09 17:16:00 Test Item Value Reference Range Interpretation Comments POC Hemoglobin (test code = POC 11.6 14.0-18.0 Hemoglobin) [facility] TexasKdeckerRDLNWTMLCO8347-89-38 17:16:00 Test Item Value Reference Range Interpretation Comments POC Hematocrit (test code = POC 34.0 42.0-54.0 Hematocrit) [facility] TexasPneztyxZSGQUHYXUM7776-65-86 17:16:00 Test Item Value Reference Range Interpretation Comments POC Potassium (test code = POC 4.3 3.5-5.1 Potassium) [facility] TexasGdoqtuxZRNBBJRFQG5156-92-31 17:16:00 Test Item Value Reference Range Interpretation Comments POC Sodium (test code = POC Sodium) 140 135-145 [facility] TexasYttbgeaLDZVEQBAHW9702-67-21 17:16:00 Test Item Value Reference Range Interpretation Comments POC Chloride (test code = POC Chloride) 106 95-109 [facility] TexasPshvgnxEZUYHCXCHX6438-22-23 17:16:00 Test Item Value Reference Range Interpretation Comments POC Glucose (test code = POC Glucose) 118 70-99 [facility] TexasRlrapflMQWTFLLCSG8602-11-01 17:16:00 Test Item Value Reference Range Interpretation Comments POC BUN (test code = POC BUN) 04-19 [facility] TexasHtwufyaAXLHGFWKYJ7597-71-49 17:16:00 Test Item Value Reference Range Interpretation Comments POC Hemoglobin (test code = POC 11.6 14.0-18.0 Hemoglobin) [facility] TexasZjteortFKTYBCGPYS6645-80-44 17:16:00 Test Item Value Reference Range Interpretation Comments POC Hematocrit (test code = POC 34.0 42.0-54.0 Hematocrit) [facility] TexasOzvpiueEEFISLYNBW4306-17-41 17:16:00 Test Item Value Reference Range Interpretation Comments POC Potassium (test code = POC 4.3 3.5-5.1 Potassium) [facility]YpwpxjqBAUISSMUFJ9863-10-51 17:16:00 Test Item Value Reference Range Interpretation Comments POC Sodium (test code = POC Sodium) 140 135-145 [facility]YtyxiwcBJRJVMFMVQ4092-51-62 17:16:00 Test Item Value Reference Range Interpretation Comments POC Chloride (test code = POC Chloride) 106 95-109 [facility] TexasFqdcqcdYODCNDRWAC4227-09-38 17:16:00 Test Item Value Reference Range Interpretation Comments POC Glucose (test code = POC Glucose) 118 70-99 [facility]WidtcgoGSPLCGMXEG8423-03-74 17:16:00 Test Item Value Reference Range Interpretation Comments POC BUN (test code = POC BUN) 04-19 [facility] TexasBbfenauUKHOPOGMAW9626-56-33 17:16:00 Test Item Value Reference Range Interpretation Comments POC Hemoglobin (test code = POC 11.6 14.0-18.0 Hemoglobin) [facility] TexasUooruylVCIZIDCLRN4129-57-35 12:26:00 Test Item Value Reference Range Interpretation Comments POC Hematocrit (test code = POC 39.0 42.0-54.0 Hematocrit) [facility] TexasDokpoqwGNWXYFJQHD0537-27-72 12:26:00 Test Item Value Reference Range Interpretation Comments POC Hemoglobin (test code = POC 13.3 14.0-18.0 Hemoglobin) [facility]VcpuvafPJPHUZIOCI9581-66-57 12:26:00 Test Item Value Reference Range Interpretation Comments POC BUN (test code = POC BUN) 04-19 [facility] TexasKmvxozgTNETNGSBIE9660-57-03 12:26:00 Test Item Value Reference Range Interpretation Comments POC Glucose (test code = POC Glucose) 108 70-99 [facility] TexasZzejirnDFKSUWHHCF4484-55-80 12:26:00 Test Item Value Reference Range Interpretation Comments POC Sodium (test code = POC Sodium) 139 135-145 [facility]QdpvuhgBUMFOHVSQQ6010-60-69 12:26:00 Test Item Value Reference Range Interpretation Comments POC Chloride (test code = POC Chloride) 105 95-109 [facility]QjqpmoqGJLCSAMDOY3805-61-10 12:26:00 Test Item Value Reference Range Interpretation Comments POC Potassium (test code = POC 4.2 3.5-5.1 Potassium) [facility]NqaqeigNSOPZXFCPX1319-52-47 12:26:00 Test Item Value Reference Range Interpretation Comments POC Hematocrit (test code = POC 39.0 42.0-54.0 Hematocrit) [facility] [place]DbnewuzCATXBKZLRQ5868-46-64 12:26:00 Test Item Value Reference Range Interpretation Comments POC Hemoglobin (test code = POC 13.3 14.0-18.0 Hemoglobin) [facility] TexasZxiuauzCAJFKDBZER0793-26-95 12:26:00 Test Item Value Reference Range Interpretation Comments POC BUN (test code = POC BUN) 04-19 [facility]WufpjgrDCKMATBBTT7111-55-50 12:26:00 Test Item Value Reference Range Interpretation Comments POC Glucose (test code = POC Glucose) 108 70-99 [facility]EnjxjloGOWGJZNRQU0191-92-52 12:26:00 Test Item Value Reference Range Interpretation Comments POC Sodium (test code = POC Sodium) 139 135-145 [facility] TexasSuhuokdJCAPVVHQVJ0026-60-98 12:26:00 Test Item Value Reference Range Interpretation Comments POC Chloride (test code = POC Chloride) 105 95-109 [facility] [place]JsiknwbVGRJITEDWL7815-30-07 12:26:00 Test Item Value Reference Range Interpretation Comments POC Potassium (test code = POC 4.2 3.5-5.1 Potassium) [facility]SstbdzfZRGESBYIIX5076-58-36 12:26:00 Test Item Value Reference Range Interpretation Comments POC Hematocrit (test code = POC 39.0 42.0-54.0 Hematocrit) [facility]QfnjyybBBRGWADLAR3728-99-90 12:26:00 Test Item Value Reference Range Interpretation Comments POC Hemoglobin (test code = POC 13.3 14.0-18.0 Hemoglobin) [facility]QwfyydhEDDLRYNFLR8070-54-38 12:26:00 Test Item Value Reference Range Interpretation Comments POC BUN (test code = POC BUN) 04-19 [facility] TexasEkiuakdIRIISGZZXN6258-37-14 12:26:00 Test Item Value Reference Range Interpretation Comments POC Glucose (test code = POC Glucose) 108 70-99 [facility] TexasGuevgpeKNDDYKTSZI5658-97-44 12:26:00 Test Item Value Reference Range Interpretation Comments POC Sodium (test code = POC Sodium) 139 135-145 [facility]HuxdpnaBLFZCJCDBF8606-41-19 12:26:00 Test Item Value Reference Range Interpretation Comments POC Chloride (test code = POC Chloride) 105 95-109 [facility]YfckizzUHZWJHAANJ5397-02-97 12:26:00 Test Item Value Reference Range Interpretation Comments POC Potassium (test code = POC 4.2 3.5-5.1 Potassium) [facility]NywjinaEWCVHQAIXD0007-05-93 12:26:00 Test Item Value Reference Range Interpretation Comments POC Hematocrit (test code = POC 39.0 42.0-54.0 Hematocrit) [facility] [place]AuodxivMBHCDDKTXG2620-03-17 12:26:00 Test Item Value Reference Range Interpretation Comments POC Hemoglobin (test code = POC 13.3 14.0-18.0 Hemoglobin) [facility] TexasBfktcqaUZRAPWNULW8523-16-96 12:26:00 Test Item Value Reference Range Interpretation Comments POC BUN (test code = POC BUN) 04-19 [facility] TexasGfmunehBIURKITILF0461-92-68 12:26:00 Test Item Value Reference Range Interpretation Comments POC Glucose (test code = POC Glucose) 108 70-99 [facility] TexasLinxvveQLJPMYDBME6836-69-76 12:26:00 Test Item Value Reference Range Interpretation Comments POC Sodium (test code = POC Sodium) 139 135-145 [facility] TexasGkmgjrbBHFVYSWUCP3244-62-68 12:26:00 Test Item Value Reference Range Interpretation Comments POC Chloride (test code = POC Chloride) 105 95-109 [facility] TexasTndmqoiRGZSUQAHZB6750-11-45 12:26:00 Test Item Value Reference Range Interpretation Comments POC Potassium (test code = POC 4.2 3.5-5.1 Potassium) [facility]NbtrrgmQRHIUKVRGC7256-15-28 12:26:00 Test Item Value Reference Range Interpretation Comments POC Hematocrit (test code = POC 39.0 42.0-54.0 Hematocrit) [facility]KlnwimfZCNRCQBZUO0186-93-86 12:26:00 Test Item Value Reference Range Interpretation Comments POC Hemoglobin (test code = POC 13.3 14.0-18.0 Hemoglobin) [facility] TexasPouanjhPRIZSAUWDP9774-31-11 12:26:00 Test Item Value Reference Range Interpretation Comments POC BUN (test code = POC BUN) 04-19 [facility]TstyqvnJPAIRAJINY3288-84-61 12:26:00 Test Item Value Reference Range Interpretation Comments POC Glucose (test code = POC Glucose) 108 70-99 [facility]UfrofqaQNRQGTGIFN9231-31-89 12:26:00 Test Item Value Reference Range Interpretation Comments POC Sodium (test code = POC Sodium) 139 135-145 [facility] [place]OrcefeeSWBSFLJMIE8039-57-53 12:26:00 Test Item Value Reference Range Interpretation Comments POC Chloride (test code = POC Chloride) 105 95-109 [facility] TexasAwzwxphWLCNJJDPJS6091-48-18 12:26:00 Test Item Value Reference Range Interpretation Comments POC Potassium (test code = POC 4.2 3.5-5.1 Potassium) [facility] TexasEinthznZLLMVXSDQS6218-68-74 12:26:00 Test Item Value Reference Range Interpretation Comments POC Hematocrit (test code = POC 39.0 42.0-54.0 Hematocrit) [facility]AishlwiHMPGXYDGYQ3174-60-66 12:26:00 Test Item Value Reference Range Interpretation Comments POC Hemoglobin (test code = POC 13.3 14.0-18.0 Hemoglobin) [facility]MjczvrtCDMODCPHMI4915-68-42 12:26:00 Test Item Value Reference Range Interpretation Comments POC BUN (test code = POC BUN) 22 7-22 [facility]JqwugrkIVMIQBXWEQ7281-48-97 12:26:00 Test Item Value Reference Range Interpretation Comments POC Glucose (test code = POC Glucose) 108 70-99 [facility] TexasXuonhogLFFSBPHTOY0703-36-77 12:26:00 Test Item Value Reference Range Interpretation Comments POC Sodium (test code = POC Sodium) 139 135-145 [facility] [place]OsohudeLZWHGNHXRB2422-21-99 12:26:00 Test Item Value Reference Range Interpretation Comments POC Chloride (test code = POC Chloride) 105 95-109 [facility]QxlhuwxCZROVSHNCP1873-46-92 12:26:00 Test Item Value Reference Range Interpretation Comments POC Potassium (test code = POC 4.2 3.5-5.1 Potassium) [facility] TexasBbrbbfjHAPIIRRWKH5286-96-16 18:25:00 Test Item Value Reference Range Interpretation Comments POC Hematocrit (test code = POC 30.0 42.0-54.0 Hematocrit) [facility]GwyzfpaWJTEGIWZRA1939-63-51 18:25:00 Test Item Value Reference Range Interpretation Comments POC Hemoglobin (test code = POC 10.2 14.0-18.0 Hemoglobin) [facility] TexasLaxwmwuEPFHWGFHYO1135-92-13 18:25:00 Test Item Value Reference Range Interpretation Comments POC Glucose (test code = POC Glucose) 94 70-99 [facility]AlynrmbIXRVWZQWGB2013-13-21 18:25:00 Test Item Value Reference Range Interpretation Comments POC Chloride (test code = POC Chloride) 103 95-109 [facility]AgpbbudQFQSMMJNHC6298-05-33 18:25:00 Test Item Value Reference Range Interpretation Comments POC Sodium (test code = POC Sodium) 135 135-145 [facility] TexasCupzlagTEYZXIZRWM5717-53-01 18:25:00 Test Item Value Reference Range Interpretation Comments POC Potassium (test code = POC 5.5 3.5-5.1 Potassium) [facility] TexasUxurmzySUHMGWTFBK3072-47-19 18:25:00 Test Item Value Reference Range Interpretation Comments POC BUN (test code = POC BUN) 04-19 [facility]NshdcsdSJFLTAJDMV5246-82-23 18:25:00 Test Item Value Reference Range Interpretation Comments POC Hematocrit (test code = POC 30.0 42.0-54.0 Hematocrit) [facility]TmtdmxzSSIYAHLHIX4051-79-31 18:25:00 Test Item Value Reference Range Interpretation Comments POC Hemoglobin (test code = POC 10.2 14.0-18.0 Hemoglobin) [facility] TexasMxaboysGQAHHKZGJD5484-56-99 18:25:00 Test Item Value Reference Range Interpretation Comments POC Glucose (test code = POC Glucose) 94 70-99 [facility] TexasNtmriabVPIXLOAUIB2614-46-41 18:25:00 Test Item Value Reference Range Interpretation Comments POC Chloride (test code = POC Chloride) 103 95-109 [facility] TexasCvxlmfxPBBDTVGQKD8845-70-65 18:25:00 Test Item Value Reference Range Interpretation Comments POC Sodium (test code = POC Sodium) 135 135-145 [facility]WtrvbooTZITNJNFHC9227-68-29 18:25:00 Test Item Value Reference Range Interpretation Comments POC Potassium (test code = POC 5.5 3.5-5.1 Potassium) [facility]XuqqksbBKECAJHEPX6905-56-12 18:25:00 Test Item Value Reference Range Interpretation Comments POC BUN (test code = POC BUN) 16 04-19 [facility]VrxcntuOVGJRGFYCP3450-64-00 18:25:00 Test Item Value Reference Range Interpretation Comments POC Hematocrit (test code = POC 30.0 42.0-54.0 Hematocrit) [facility]MujbuobGNQCGEGTAI2887-84-29 18:25:00 Test Item Value Reference Range Interpretation Comments POC Hemoglobin (test code = POC 10.2 14.0-18.0 Hemoglobin) [facility]NjygehdWPBBKCRBBG7086-38-05 18:25:00 Test Item Value Reference Range Interpretation Comments POC Glucose (test code = POC Glucose) 94 70-99 [facility] TexasUyfnlapQQCAKCREYI8268-43-17 18:25:00 Test Item Value Reference Range Interpretation Comments POC Chloride (test code = POC Chloride) 103 95-109 [facility]SuwhymdEKEVXECJWU4758-18-24 18:25:00 Test Item Value Reference Range Interpretation Comments POC Sodium (test code = POC Sodium) 135 135-145 [facility] TexasDkhqztiYJIAOJJNIB8756-66-28 18:25:00 Test Item Value Reference Range Interpretation Comments POC Potassium (test code = POC 5.5 3.5-5.1 Potassium) [facility]JxuxxpgIJKACTOORR9523-89-18 18:25:00 Test Item Value Reference Range Interpretation Comments POC BUN (test code = POC BUN) 16 04-19 [facility] TexasTlsmpmtAJDYUVDGCH1319-74-34 18:25:00 Test Item Value Reference Range Interpretation Comments POC Hematocrit (test code = POC 30.0 42.0-54.0 Hematocrit) [facility]WgzlehyDZRVOCLMLP7018-95-33 18:25:00 Test Item Value Reference Range Interpretation Comments POC Hemoglobin (test code = POC 10.2 14.0-18.0 Hemoglobin) [facility]IgljriwXVTZKUUDWM6465-07-29 18:25:00 Test Item Value Reference Range Interpretation Comments POC Glucose (test code = POC Glucose) 94 70-99 [facility] TexasXonfrrfDXQNGEEZPG1010-44-57 18:25:00 Test Item Value Reference Range Interpretation Comments POC Chloride (test code = POC Chloride) 103 95-109 [facility] TexasUnxqpyjSSFTRVVMPA0451-49-42 18:25:00 Test Item Value Reference Range Interpretation Comments POC Sodium (test code = POC Sodium) 135 135-145 [facility] TexasTrnkxswNPHSFYXBGY6854-61-24 18:25:00 Test Item Value Reference Range Interpretation Comments POC Potassium (test code = POC 5.5 3.5-5.1 Potassium) [facility]ViwhyqrLMKJKDSHMV0085-46-95 18:25:00 Test Item Value Reference Range Interpretation Comments POC BUN (test code = POC BUN) 16 - [facility]QjqtoxoKTTFMEJRCD0397-75-02 18:25:00 Test Item Value Reference Range Interpretation Comments POC Hematocrit (test code = POC 30.0 42.0-54.0 Hematocrit) [facility] TexasLqdhefkXEXVDCGQKQ5187-21-53 18:25:00 Test Item Value Reference Range Interpretation Comments POC Hemoglobin (test code = POC 10.2 14.0-18.0 Hemoglobin) [facility]JlgtvlcRIGOYCVQSU3927-26-90 18:25:00 Test Item Value Reference Range Interpretation Comments POC Glucose (test code = POC Glucose) 94 70-99 [facility]AvcmrwrRFKKRHOXLT4407-29-10 18:25:00 Test Item Value Reference Range Interpretation Comments POC Chloride (test code = POC Chloride) 103 95-109 [facility]YmeysgwJLYBURIPVN9621-26-50 18:25:00 Test Item Value Reference Range Interpretation Comments POC Sodium (test code = POC Sodium) 135 135-145 [facility] TexasZmewknrTGCAYUVUKT7902-38-27 18:25:00 Test Item Value Reference Range Interpretation Comments POC Potassium (test code = POC 5.5 3.5-5.1 Potassium) [facility] TexasFfrebkgTDORFFJMXR7936-10-91 18:25:00 Test Item Value Reference Range Interpretation Comments POC BUN (test code = POC BUN) 16 7- [facility]PtdmihmHROQCQJKJP1752-01-19 18:25:00 Test Item Value Reference Range Interpretation Comments POC Hematocrit (test code = POC 30.0 42.0-54.0 Hematocrit) [facility]XyzsvpvJPJFZEKGYG8444-30-14 18:25:00 Test Item Value Reference Range Interpretation Comments POC Hemoglobin (test code = POC 10.2 14.0-18.0 Hemoglobin) [facility]CkagsghHLFVOBIHLN0663-48-35 18:25:00 Test Item Value Reference Range Interpretation Comments POC Glucose (test code = POC Glucose) 94 70-99 [facility]QfferrqDMPGYQXMFQ8243-31-03 18:25:00 Test Item Value Reference Range Interpretation Comments POC Chloride (test code = POC Chloride) 103 95-109 [facility]WhtqddoVQEGKQCPBQ1635-61-20 18:25:00 Test Item Value Reference Range Interpretation Comments POC Sodium (test code = POC Sodium) 135 135-145 [facility] TexasNtodggmLEMNZVFWRD8423-67-08 18:25:00 Test Item Value Reference Range Interpretation Comments POC Potassium (test code = POC 5.5 3.5-5.1 Potassium) [facility]YokftafXHYVFDUJCL2092-75-66 18:25:00 Test Item Value Reference Range Interpretation Comments POC BUN (test code = POC BUN) 16 [facility]BratsvyVKVODTIIMNUI9752-89-09 15:01:00 Test Item Value Reference Range Interpretation Comments POC Sodium (test code = POC Sodium) 135 135-145 [facility]LkikezhYAGOXCWQLLQY0342-53-41 15:01:00 Test Item Value Reference Range Interpretation Comments POC Hematocrit (test code = POC 31.0 42.0-54.0 Hematocrit) [facility]HvvfzpqCHCIQGMUWCJK3838-10-91 15:01:00 Test Item Value Reference Range Interpretation Comments POC Hemoglobin (test code = POC 10.5 14.0-18.0 Hemoglobin) [facility]RicmphzXXYPBHXUNDNG6173-17-90 15:01:00 Test Item Value Reference Range Interpretation Comments POC Chloride (test code = POC Chloride) 101 95-109 [facility] CenterMylaqyuETNQUPRXELDV6436-11-70 15:01:00 Test Item Value Reference Range Interpretation Comments POC Potassium (test code = POC 4.7 3.5-5.1 Potassium) [facility] CenterYgcqvdhJBYOVCVXNAUQ2188-69-75 15:01:00 Test Item Value Reference Range Interpretation Comments POC Glucose (test code = POC Glucose) 94 70-99 [facility] CenterOsiyjlxYZYDZSTQQJTX9209-89-07 15:01:00 Test Item Value Reference Range Interpretation Comments POC BUN (test code = POC BUN) 15 04-19 [facility]PhemfflXOEDBVFUSQDO3709-37-18 15:01:00 Test Item Value Reference Range Interpretation Comments POC Sodium (test code = POC Sodium) 135 135-145 [facility] CenterCnpxbpjDTQSFKJMSCRN4628-56-24 15:01:00 Test Item Value Reference Range Interpretation Comments POC Hematocrit (test code = POC 31.0 42.0-54.0 Hematocrit) [facility] CenterFeqlarjZPXXSPTVLOTL9071-28-97 15:01:00 Test Item Value Reference Range Interpretation Comments POC Hemoglobin (test code = POC 10.5 14.0-18.0 Hemoglobin) [facility] CenterVvzlifcHRMXQVLLZFLY1342-33-41 15:01:00 Test Item Value Reference Range Interpretation Comments POC Chloride (test code = POC Chloride) 101 95-109 [facility] CenterRletnofQRXYAPAJSMGK9120-92-34 15:01:00 Test Item Value Reference Range Interpretation Comments POC Potassium (test code = POC 4.7 3.5-5.1 Potassium) [facility] CenterPxceadeXKVUAKYKJYFN2292-85-21 15:01:00 Test Item Value Reference Range Interpretation Comments POC Glucose (test code = POC Glucose) 94 70-99 [facility] CenterSvuyufxOKJXBRVTTFNL7699-36-88 15:01:00 Test Item Value Reference Range Interpretation Comments POC BUN (test code = POC BUN) 04-19 [facility] CenterJzcaldjZUXNOWDVKUNJ5127-91-45 15:01:00 Test Item Value Reference Range Interpretation Comments POC Sodium (test code = POC Sodium) 135 135-145 [facility] CenterEmkyhcpVYYJJIVOPRYG1939-76-97 15:01:00 Test Item Value Reference Range Interpretation Comments POC Hematocrit (test code = POC 31.0 42.0-54.0 Hematocrit) [facility] CenterCfuqfvwZYTMEUZUQUHY8307-70-42 15:01:00 Test Item Value Reference Range Interpretation Comments POC Hemoglobin (test code = POC 10.5 14.0-18.0 Hemoglobin) [facility] [facility]OnmkqzcLHBRMWTHQJVV2126-32-59 15:01:00 Test Item Value Reference Range Interpretation Comments POC Chloride (test code = POC Chloride) 101 95-109 [facility]AwqfpldUPORZKESGIXW8670-59-61 15:01:00 Test Item Value Reference Range Interpretation Comments POC Potassium (test code = POC 4.7 3.5-5.1 Potassium) [facility]KxfsckjLITGGTWJKLBH4168-75-76 15:01:00 Test Item Value Reference Range Interpretation Comments POC Glucose (test code = POC Glucose) 94 70-99 [facility] CenterZwvklvrIIBWGWJKSBQF1979-56-47 15:01:00 Test Item Value Reference Range Interpretation Comments POC BUN (test code = POC BUN) 04-19 [facility]LmfjbgtMHJDBGZUNGRE2576-91-83 15:01:00 Test Item Value Reference Range Interpretation Comments POC Sodium (test code = POC Sodium) 135 135-145 [facility] CenterJnkmrhpGQMJRAUZEUFW6924-42-25 15:01:00 Test Item Value Reference Range Interpretation Comments POC Hematocrit (test code = POC 31.0 42.0-54.0 Hematocrit) [facility] CenterDigrvqyMDIVPRFCAPWP7305-86-62 15:01:00 Test Item Value Reference Range Interpretation Comments POC Hemoglobin (test code = POC 10.5 14.0-18.0 Hemoglobin) [facility] CenterTwpocufALWOJMXYZOGJ4210-81-07 15:01:00 Test Item Value Reference Range Interpretation Comments POC Chloride (test code = POC Chloride) 101 95-109 [facility] CenterMzsgtgvWJMRLRIYMSJX6272-86-09 15:01:00 Test Item Value Reference Range Interpretation Comments POC Potassium (test code = POC 4.7 3.5-5.1 Potassium) [facility] CenterCuzuzucDBZHBNPBJNNZ7960-20-31 15:01:00 Test Item Value Reference Range Interpretation Comments POC Glucose (test code = POC Glucose) 94 70-99 [facility] CenterRnajzmqBGFWRYDFASED8413-04-31 15:01:00 Test Item Value Reference Range Interpretation Comments POC BUN (test code = POC BUN) 15 04-19 [facility] CenterSwftxwtNKAGZEGAHDET7301-00-16 15:01:00 Test Item Value Reference Range Interpretation Comments POC Sodium (test code = POC Sodium) 135 135-145 [facility] CenterGppqadtRVHMUNRJHUDX8784-18-04 15:01:00 Test Item Value Reference Range Interpretation Comments POC Hematocrit (test code = POC 31.0 42.0-54.0 Hematocrit) [facility] CenterUtgstuwHLKQQIGUMTEB5370-62-63 15:01:00 Test Item Value Reference Range Interpretation Comments POC Hemoglobin (test code = POC 10.5 14.0-18.0 Hemoglobin) [facility] CenterKfllhqvRHDOKUAUUZMR3818-26-37 15:01:00 Test Item Value Reference Range Interpretation Comments POC Chloride (test code = POC Chloride) 101 95-109 [facility] CenterZumyiprBPAYHBJAORFM5226-96-16 15:01:00 Test Item Value Reference Range Interpretation Comments POC Potassium (test code = POC 4.7 3.5-5.1 Potassium) [facility] CenterVpietlxRNVGOHTTBJVP1110-54-71 15:01:00 Test Item Value Reference Range Interpretation Comments POC Glucose (test code = POC Glucose) 94 70-99 [facility] CenterRrawizcEDZOLZKGPWYU6464-20-91 15:01:00 Test Item Value Reference Range Interpretation Comments POC BUN (test code = POC BUN) 04-19 [facility] CenterSwqjpfnTHZQRGGAOIUT1372-69-29 15:01:00 Test Item Value Reference Range Interpretation Comments POC Sodium (test code = POC Sodium) 135 135-145 [facility] CenterAxjkwgcVMCKDJEWLZKY5049-77-79 15:01:00 Test Item Value Reference Range Interpretation Comments POC Hematocrit (test code = POC 31.0 42.0-54.0 Hematocrit) [facility] CenterRwhdmmuQQWYWYUUOFSQ4846-93-80 15:01:00 Test Item Value Reference Range Interpretation Comments POC Hemoglobin (test code = POC 10.5 14.0-18.0 Hemoglobin) [facility] CenterMmimypxMYXRWPHGZULE3627-39-47 15:01:00 Test Item Value Reference Range Interpretation Comments POC Chloride (test code = POC Chloride) 101 95-109 [facility] CenterVsvnuemCZBDANGKSFUD4692-48-30 15:01:00 Test Item Value Reference Range Interpretation Comments POC Potassium (test code = POC 4.7 3.5-5.1 Potassium) [facility] CenterEjmphjfJWVTHNHTJYXN9276-60-54 15:01:00 Test Item Value Reference Range Interpretation Comments POC Glucose (test code = POC Glucose) 94 70-99 [facility] CenterWsvppuuZLFCTOUJNXOG3973-28-49 15:01:00 Test Item Value Reference Range Interpretation Comments POC BUN (test code = POC BUN) 15 04-19 [facility]HezeamxDEIRALZHZV2285-51-26 21:42:00 Test Item Value Reference Range Interpretation Comments Hep B Core Ab (test Negative *NA*(04/10/17 code = Hep B Core Ab) 4:42 PM) [facility] HospitalAkijznvLIRMYRAXOO5436-75-05 21:42:00 Test Item Value Reference Range Interpretation Comments Hep Bs Ag (test code Negative *NA*(04/10/17 = Hep Bs Ag) 4:42 PM) [facility] HospitalGkwfiixMRWPHDAVTT7456-76-18 21:42:00 Test Item Value Reference Range Interpretation Comments Hep C Ab (test code = Positive *ABN*(04/10/17 Hep C Ab) 4:42 PM) [facility] HospitalEyujwdqSPTJQSVYAW7431-10-11 21:42:00 Test Item Value Reference Range Interpretation Comments Hep Bs Ab (test code = Hep Bs Ab) no gt [facility] HospitalSknvubzFKFFIJYLFV7303-37-59 21:42:00 Test Item Value Reference Range Interpretation Comments Hep B Core Ab (test Negative *NA*(04/10/17 code = Hep B Core Ab) 4:42 PM) [facility] HospitalIevulhnAHSOKKDIHG5070-90-55 21:42:00 Test Item Value Reference Range Interpretation Comments Hep Bs Ag (test code Negative *NA*(04/10/17 = Hep Bs Ag) 4:42 PM) [facility] HospitalBqiqfneFQPYLTAWCZ3665-55-27 21:42:00 Test Item Value Reference Range Interpretation Comments Hep C Ab (test code = Positive *ABN*(04/10/17 Hep C Ab) 4:42 PM) [facility] HospitalRynptwqGPSMGWFQHY4242-23-61 21:42:00 Test Item Value Reference Range Interpretation Comments Hep Bs Ab (test code = Hep Bs Ab) no gt [facility] HospitalJgwreulIVJILBIHAF9035-72-72 21:42:00 Test Item Value Reference Range Interpretation Comments Hep B Core Ab (test Negative *NA*(04/10/17 code = Hep B Core Ab) 4:42 PM) [facility] HospitalEceodzhXIPCJAVLHX5449-75-94 21:42:00 Test Item Value Reference Range Interpretation Comments Hep Bs Ag (test code Negative *NA*(04/10/17 = Hep Bs Ag) 4:42 PM) [facility] HospitalIfashmqNMIFNUAGXC9431-41-43 21:42:00 Test Item Value Reference Range Interpretation Comments Hep C Ab (test code = Positive *ABN*(04/10/17 Hep C Ab) 4:42 PM) [facility] HospitalLqbxrtrMQQKJNQUFK8820-37-62 21:42:00 Test Item Value Reference Range Interpretation Comments Hep Bs Ab (test code = Hep Bs Ab) no gt [facility] HospitalLgtsxwhORWRLJHNVH9150-31-02 21:42:00 Test Item Value Reference Range Interpretation Comments Hep B Core Ab (test Negative *NA*(04/10/17 code = Hep B Core Ab) 4:42 PM) [facility] HospitalVgzzpsfKSTGXTCLGM7310-82-73 21:42:00 Test Item Value Reference Range Interpretation Comments Hep Bs Ag (test code Negative *NA*(04/10/17 = Hep Bs Ag) 4:42 PM) [facility] HospitalCgbuyhcILXPPAEWYQ3101-91-09 21:42:00 Test Item Value Reference Range Interpretation Comments Hep C Ab (test code = Positive *ABN*(04/10/17 Hep C Ab) 4:42 PM) [facility] HospitalPfcqrksNJQPAUEUNR6146-99-60 21:42:00 Test Item Value Reference Range Interpretation Comments Hep Bs Ab (test code = Hep Bs Ab) no gt [facility] HospitalMkejkrrPJPDBEDHSU2138-87-61 21:42:00 Test Item Value Reference Range Interpretation Comments Hep B Core Ab (test Negative *NA*(04/10/17 code = Hep B Core Ab) 4:42 PM) [facility] HospitalHcihnwvAHOFEXYWYS8563-60-69 21:42:00 Test Item Value Reference Range Interpretation Comments Hep Bs Ag (test code Negative *NA*(04/10/17 = Hep Bs Ag) 4:42 PM) [facility]SilwbwbWHWJRIMFTC6232-80-51 21:42:00 Test Item Value Reference Range Interpretation Comments Hep C Ab (test code = Positive *ABN*(04/10/17 Hep C Ab) 4:42 PM) [facility] HospitalRclziitGIFOKYSBNL4689-25-44 21:42:00 Test Item Value Reference Range Interpretation Comments Hep Bs Ab (test code = Hep Bs Ab) [facility] gt [facility] CenterYhvzyqtPYQHYFNPSR3982-51-42 21:42:00 Test Item Value Reference Range Interpretation Comments Hep B Core Ab (test Negative *NA*(04/10/17 code = Hep B Core Ab) 4:42 PM) [facility] HospitalAvgcpolZFMJXQQJCY7823-53-80 21:42:00 Test Item Value Reference Range Interpretation Comments Hep Bs Ag (test code Negative *NA*(04/10/17 = Hep Bs Ag) 4:42 PM) [facility] HospitalDkafqviMUFPFZNDIM9212-49-56 21:42:00 Test Item Value Reference Range Interpretation Comments Hep C Ab (test code = Positive *ABN*(04/10/17 Hep C Ab) 4:42 PM) [facility] HospitalPwxobstUPAQPKWQIK4817-98-04 21:42:00 Test Item Value Reference Range Interpretation Comments Hep Bs Ab (test code = Hep Bs Ab) no gt [facility]2017-07-13 00:27:00 Test Item Value Reference Range Interpretation Comments eGFR (test code = eGFR) 5 [facility]2017-07-13 00:27:00 Test Item Value Reference Range Interpretation Comments Glucose Lvl (test code = Glucose Lvl) 90 70-99 [facility]2017-07-13 00:27:00 Test Item Value Reference Range Interpretation Comments BUN (test code = BUN) 66 7-22 [facility]2017-07-13 00:27:00 Test Item Value Reference Range Interpretation Comments Creatinine Lvl (test code = Creatinine 10.00 0.50-1.40 Lvl) [facility]2017-07-13 00:27:00 Test Item Value Reference Range Interpretation Comments Sodium Lvl (test code = Sodium Lvl) 136 135-145 [facility]2017-07-13 00:27:00 Test Item Value Reference Range Interpretation Comments ALT (test code = ALT) 23 See_Comment [Auto mated message] The system which ge nerated this result transmit cruz reference range : <=65. The reference range was not used to interpr et this result as gee l/abnormal. [facility]2017-07-13 00:27:00 Test Item Value Reference Range Interpretation Comments Alk Phos (test code = Alk Phos) 140 39-136 [facility]2017-07-13 00:27:00 Test Item Value Reference Range Interpretation Comments AST (test code = AST) 10 See_Comment [Auto mated message] The system which ge nerated this result transmit cruz reference range : <=37. The reference range was not used to interpr et this result as gee l/abnormal. [facility]2017-07-13 00:27:00 Test Item Value Reference Range Interpretation Comments Bili Total (test code = Bili Total) 0.2 0.2-1.3 [facility]2017-07-13 00:27:00 Test Item Value Reference Range Interpretation Comments Chloride Lvl (test code = Chloride Lvl) 104 95-109 [facility]2017-07-13 00:27:00 Test Item Value Reference Range Interpretation Comments Potassium Lvl (test code = Potassium 4.6 3.5-5.1 Lvl) [facility]2017-07-13 00:27:00 Test Item Value Reference Range Interpretation Comments CO2 (test code = CO2) 20 24-32 [facility]2017-07-13 00:27:00 Test Item Value Reference Range Interpretation Comments Calcium Lvl (test code = Calcium Lvl) 8.1 8.5-10.5 [facility]2017-07-13 00:27:00 Test Item Value Reference Range Interpretation Comments Total Protein (test code = Total 8.0 6.4-8.4 Protein) [facility]2017-07-13 00:27:00 Test Item Value Reference Range Interpretation Comments Albumin Lvl (test code = Albumin Lvl) 3.4 3.5-5.0 [facility]2017-07-13 00:27:00 Test Item Value Reference Range Interpretation Comments AGAP (test code = AGAP) 16.6 10.0-20.0 [facility]2017-07-13 00:27:00 Test Item Value Reference Range Interpretation Comments B/C Ratio (test code = B/C Ratio) 7 6-25 [facility]2017-07-13 00:27:00 Test Item Value Reference Range Interpretation Comments Globulin (test code = Globulin) 4.6 2.7-4.2 [facility]2017-07-13 00:27:00 Test Item Value Reference Range Interpretation Comments A/G Ratio (test code = A/G Ratio) 0.7 0.7-1.6 [facility]zzwGQNKLXACAK7219-72-36 00:27:00 Test Item Value Reference Range Interpretation Comments MPV (test code = MPV) 9.3 7.4-10.4 [facility]AjpqgrqVRSGMXNIWK7520-15-55 00:27:00 Test Item Value Reference Range Interpretation Comments Hct (test code = Hct) 32.4 42.0-54.0 [facility]OqxecizNKVBKENCOA2084-21-66 00:27:00 Test Item Value Reference Range Interpretation Comments MCV (test code = MCV) 88.9 80.0-94.0 [facility]KvlhubpSLQIROXVCS7929-22-20 00:27:00 Test Item Value Reference Range Interpretation Comments MCH (test code = MCH) 29.5 pg 27.0-31.0 [facility]RugvtdxCNXPPWTZVM2602-74-21 00:27:00 Test Item Value Reference Range Interpretation Comments Platelet (test code = Platelet) 216 133-450 [facility]TmrsstcPIDLEPNDBK5777-01-32 00:27:00 Test Item Value Reference Range Interpretation Comments MCHC (test code = MCHC) 33.1 32.0-36.0 [facility]AzjocitWDUHFHAEYV5347-26-90 00:27:00 Test Item Value Reference Range Interpretation Comments RDW (test code = RDW) 12.6 11.5-14.5 [facility]FzzltgaODDAIRDNOB0473-72-12 00:27:00 Test Item Value Reference Range Interpretation Comments Hgb (test code = Hgb) 10.7 14.0-18.0 [facility]HcohpmdNIDSCRUTKQ6034-68-16 00:27:00 Test Item Value Reference Range Interpretation Comments RBC (test code = RBC) 3.65 4.70-6.10 [facility]OhqmxchXDLGOPVLJV8265-19-02 00:27:00 Test Item Value Reference Range Interpretation Comments WBC (test code = WBC) 8.8 3.7-10.4 [facility]TjjkkfyNWGCGOFVOJ9544-62-79 00:27:00 Test Item Value Reference Range Interpretation Comments Basophils # (test code 0.0 See_Comment [Aut omated message] The = Basophils #) system which generated this result tra nsmitted reference range : <=0.2. The reference r jillian was not used to int erpret this result as normal/abnormal . [facility]IbmqcgpRHAFZSDSAS0665-97-96 00:27:00 Test Item Value Reference Range Interpretation Comments Eosinophils # (test code 0.1 See_Comment [A utomated message] The = Eosinophils #) system whic h generated this result tra nsmitted reference range : <=0.5. The reference r jillian was not used to int erpret this result as normal/abnormal . [facility]CkrlwjfZJJMLCXNFU9620-51-73 00:27:00 Test Item Value Reference Range Interpretation Comments Monocytes # (test code 0.5 See_Comment [Aut omated message] The = Monocytes #) system which generated this result tra nsmitted reference range : <=0.8. The reference r jillian was not used to int erpret this result as normal/abnormal . [facility] TexasLomntfnULLKFOTICJ1105-29-83 00:27:00 Test Item Value Reference Range Interpretation Comments Lymphocytes # (test code = Lymphocytes 1.3 1.0-5.5 #) [facility]ZhuqwesLQPRYJXPTA0279-79-25 00:27:00 Test Item Value Reference Range Interpretation Comments Segs (test code = Segs) 78.2 45.0-75.0 [facility]ZthjjnkOGILMGJRCU6135-46-73 00:27:00 Test Item Value Reference Range Interpretation Comments Lymphocytes (test code = Lymphocytes) 14.8 20.0-40.0 [facility]KttcjzfIODYQGFFAZ2688-96-65 00:27:00 Test Item Value Reference Range Interpretation Comments Monocytes (test code = Monocytes) 5.8 2.0-12.0 [facility]BydyvseCDPFYMAEQN6253-58-63 00:27:00 Test Item Value Reference Range Interpretation Comments Segs-Bands # (test code = Segs-Bands #) 6.8 1.5-8.1 [facility]LgermkxVOKORTIQMJ6619-02-90 00:27:00 Test Item Value Reference Range Interpretation Comments Basophils (test code = 0.3 See_Comment [Aut omated message] The Basophils) system which ge nerated this result tra nsmitted reference range : <=1.0. The reference r jillian was not used to int erpret this result as normal/abnormal . [facility]MwxtbbmFHLGQYELTJ2426-91-08 00:27:00 Test Item Value Reference Range Interpretation Comments Eosinophils (test code = 0.9 See_Comment [A utomated message] The Eosinophils) system which ge nerated this result tra nsmitted reference range : <=4.0. The reference r jillian was not used to int erpret this result as normal/abnormal . [facility]2017-07-13 00:27:00 Test Item Value Reference Range Interpretation Comments eGFR (test code = eGFR) 5 [facility]2017-07-13 00:27:00 Test Item Value Reference Range Interpretation Comments Glucose Lvl (test code = Glucose Lvl) 90 70-99 [facility]2017-07-13 00:27:00 Test Item Value Reference Range Interpretation Comments BUN (test code = BUN) 66 7-22 [facility]2017-07-13 00:27:00 Test Item Value Reference Range Interpretation Comments Creatinine Lvl (test code = Creatinine 10.00 0.50-1.40 Lvl) [facility]2017-07-13 00:27:00 Test Item Value Reference Range Interpretation Comments Sodium Lvl (test code = Sodium Lvl) 136 135-145 [facility]2017-07-13 00:27:00 Test Item Value Reference Range Interpretation Comments ALT (test code = ALT) 23 See_Comment [Auto mated message] The system which ge nerated this result transmit cruz reference range : <=65. The reference range was not used to interpr et this result as gee l/abnormal. [facility]2017-07-13 00:27:00 Test Item Value Reference Range Interpretation Comments Alk Phos (test code = Alk Phos) 140 39-136 [facility]2017-07-13 00:27:00 Test Item Value Reference Range Interpretation Comments AST (test code = AST) 10 See_Comment [Auto mated message] The system which ge nerated this result transmit cruz reference range : <=37. The reference range was not used to interpr et this result as gee l/abnormal. [facility]2017-07-13 00:27:00 Test Item Value Reference Range Interpretation Comments Bili Total (test code = Bili Total) 0.2 0.2-1.3 [facility]2017-07-13 00:27:00 Test Item Value Reference Range Interpretation Comments Chloride Lvl (test code = Chloride Lvl) 104 95-109 [facility]2017-07-13 00:27:00 Test Item Value Reference Range Interpretation Comments Potassium Lvl (test code = Potassium 4.6 3.5-5.1 Lvl) [facility]2017-07-13 00:27:00 Test Item Value Reference Range Interpretation Comments CO2 (test code = CO2) 20 24-32 [facility]2017-07-13 00:27:00 Test Item Value Reference Range Interpretation Comments Calcium Lvl (test code = Calcium Lvl) 8.1 8.5-10.5 [facility]2017-07-13 00:27:00 Test Item Value Reference Range Interpretation Comments Total Protein (test code = Total 8.0 6.4-8.4 Protein) [facility]2017-07-13 00:27:00 Test Item Value Reference Range Interpretation Comments Albumin Lvl (test code = Albumin Lvl) 3.4 3.5-5.0 [facility]2017-07-13 00:27:00 Test Item Value Reference Range Interpretation Comments AGAP (test code = AGAP) 16.6 10.0-20.0 [facility]2017-07-13 00:27:00 Test Item Value Reference Range Interpretation Comments B/C Ratio (test code = B/C Ratio) 7 6-25 [facility]2017-07-13 00:27:00 Test Item Value Reference Range Interpretation Comments Globulin (test code = Globulin) 4.6 2.7-4.2 [facility]2017-07-13 00:27:00 Test Item Value Reference Range Interpretation Comments A/G Ratio (test code = A/G Ratio) 0.7 0.7-1.6 [facility]MxujmiaIXIYFPXBMM1751-11-63 00:27:00 Test Item Value Reference Range Interpretation Comments MPV (test code = MPV) 9.3 7.4-10.4 [facility]QrxqvffEMUFAKSPAN4919-03-42 00:27:00 Test Item Value Reference Range Interpretation Comments Hct (test code = Hct) 32.4 42.0-54.0 [facility]ZvmwrtsYRSXXCDQDW6789-98-46 00:27:00 Test Item Value Reference Range Interpretation Comments MCV (test code = MCV) 88.9 80.0-94.0 [facility]EsezogeLDFWKNXOBX6714-82-26 00:27:00 Test Item Value Reference Range Interpretation Comments MCH (test code = MCH) 29.5 pg 27.0-31.0 [facility]CmgtpzgSYQXNZOJPD4410-75-71 00:27:00 Test Item Value Reference Range Interpretation Comments Platelet (test code = Platelet) 216 133-450 [facility] TexasBkqmlteGKDHCLGGVR0814-71-84 00:27:00 Test Item Value Reference Range Interpretation Comments MCHC (test code = MCHC) 33.1 32.0-36.0 [facility]QakesruHSNCDJQBDS7585-06-90 00:27:00 Test Item Value Reference Range Interpretation Comments RDW (test code = RDW) 12.6 11.5-14.5 [facility]UrgrlauRIGEKZTBIH6338-11-89 00:27:00 Test Item Value Reference Range Interpretation Comments Hgb (test code = Hgb) 10.7 14.0-18.0 [facility]GoyjjhbBYUFODEMOI6574-92-43 00:27:00 Test Item Value Reference Range Interpretation Comments RBC (test code = RBC) 3.65 4.70-6.10 [facility]DqspzqtUDTMUKRRDU7843-24-31 00:27:00 Test Item Value Reference Range Interpretation Comments WBC (test code = WBC) 8.8 3.7-10.4 [facility]NpmjceoKBFFAVQRHX0658-04-81 00:27:00 Test Item Value Reference Range Interpretation Comments Basophils # (test code 0.0 See_Comment [Aut omated message] The = Basophils #) system which generated this result tra nsmitted reference range : <=0.2. The reference r jillian was not used to int erpret this result as normal/abnormal . [facility] TexasPsctsfiODHLCVYHYP9282-39-36 00:27:00 Test Item Value Reference Range Interpretation Comments Eosinophils # (test code 0.1 See_Comment [A utomated message] The = Eosinophils #) system whic h generated this result tra nsmitted reference range : <=0.5. The reference r jillian was not used to int erpret this result as normal/abnormal . [facility]MoymfejNESANJTCXX8074-19-41 00:27:00 Test Item Value Reference Range Interpretation Comments Monocytes # (test code 0.5 See_Comment [Aut omated message] The = Monocytes #) system which generated this result tra nsmitted reference range : <=0.8. The reference r jillian was not used to int erpret this result as normal/abnormal . [facility] TexasJzrhfctLSLTGIMFFF1206-47-11 00:27:00 Test Item Value Reference Range Interpretation Comments Lymphocytes # (test code = Lymphocytes 1.3 1.0-5.5 #) [facility]WyltxmzTIEUHJYELT5257-76-04 00:27:00 Test Item Value Reference Range Interpretation Comments Segs (test code = Segs) 78.2 45.0-75.0 [facility] TexasLfbuybxSAAJQRWSTA4417-43-74 00:27:00 Test Item Value Reference Range Interpretation Comments Lymphocytes (test code = Lymphocytes) 14.8 20.0-40.0 [facility] TexasDbckqzsIFCXIFGXIU7737-89-96 00:27:00 Test Item Value Reference Range Interpretation Comments Monocytes (test code = Monocytes) 5.8 2.0-12.0 [facility]IcgscyuRVSNBWVBLN3954-44-28 00:27:00 Test Item Value Reference Range Interpretation Comments Segs-Bands # (test code = Segs-Bands #) 6.8 1.5-8.1 [facility]EazcougUMNPFSLUSX4431-96-53 00:27:00 Test Item Value Reference Range Interpretation Comments Basophils (test code = 0.3 See_Comment [Aut omated message] The Basophils) system which ge nerated this result tra nsmitted reference range : <=1.0. The reference r jillian was not used to int erpret this result as normal/abnormal . [facility]JztdkaeEJTKCKMUZV4873-26-72 00:27:00 Test Item Value Reference Range Interpretation Comments Eosinophils (test code = 0.9 See_Comment [A utomated message] The Eosinophils) system which ge nerated this result tra nsmitted reference range : <=4.0. The reference r jillian was not used to int erpret this result as normal/abnormal . [facility]2017-07-13 00:27:00 Test Item Value Reference Range Interpretation Comments eGFR (test code = eGFR) 5 [facility]2017-07-13 00:27:00 Test Item Value Reference Range Interpretation Comments Glucose Lvl (test code = Glucose Lvl) 90 70-99 [facility]2017-07-13 00:27:00 Test Item Value Reference Range Interpretation Comments BUN (test code = BUN) 66 7-22 [facility]2017-07-13 00:27:00 Test Item Value Reference Range Interpretation Comments Creatinine Lvl (test code = Creatinine 10.00 0.50-1.40 Lvl) [facility]2017-07-13 00:27:00 Test Item Value Reference Range Interpretation Comments Sodium Lvl (test code = Sodium Lvl) 136 135-145 [facility]2017-07-13 00:27:00 Test Item Value Reference Range Interpretation Comments ALT (test code = ALT) 23 See_Comment [Auto mated message] The system which ge nerated this result transmit cruz reference range : <=65. The reference range was not used to interpr et this result as gee l/abnormal. [facility]2017-07-13 00:27:00 Test Item Value Reference Range Interpretation Comments Alk Phos (test code = Alk Phos) 140 39-136 [facility]2017-07-13 00:27:00 Test Item Value Reference Range Interpretation Comments AST (test code = AST) 10 See_Comment [Auto mated message] The system which ge nerated this result transmit cruz reference range : <=37. The reference range was not used to interpr et this result as gee l/abnormal. [facility]2017-07-13 00:27:00 Test Item Value Reference Range Interpretation Comments Bili Total (test code = Bili Total) 0.2 0.2-1.3 [facility]2017-07-13 00:27:00 Test Item Value Reference Range Interpretation Comments Chloride Lvl (test code = Chloride Lvl) 104 95-109 [facility]2017-07-13 00:27:00 Test Item Value Reference Range Interpretation Comments Potassium Lvl (test code = Potassium 4.6 3.5-5.1 Lvl) [facility]2017-07-13 00:27:00 Test Item Value Reference Range Interpretation Comments CO2 (test code = CO2) 20 24-32 [facility]2017-07-13 00:27:00 Test Item Value Reference Range Interpretation Comments Calcium Lvl (test code = Calcium Lvl) 8.1 8.5-10.5 [facility]2017-07-13 00:27:00 Test Item Value Reference Range Interpretation Comments Total Protein (test code = Total 8.0 6.4-8.4 Protein) [facility]2017-07-13 00:27:00 Test Item Value Reference Range Interpretation Comments Albumin Lvl (test code = Albumin Lvl) 3.4 3.5-5.0 [facility]2017-07-13 00:27:00 Test Item Value Reference Range Interpretation Comments AGAP (test code = AGAP) 16.6 10.0-20.0 [facility]2017-07-13 00:27:00 Test Item Value Reference Range Interpretation Comments B/C Ratio (test code = B/C Ratio) 7 6-25 [facility]2017-07-13 00:27:00 Test Item Value Reference Range Interpretation Comments Globulin (test code = Globulin) 4.6 2.7-4.2 [facility]2017-07-13 00:27:00 Test Item Value Reference Range Interpretation Comments A/G Ratio (test code = A/G Ratio) 0.7 0.7-1.6 [facility]HskajhmUUXPNQLSZM1319-62-10 00:27:00 Test Item Value Reference Range Interpretation Comments MPV (test code = MPV) 9.3 7.4-10.4 [facility] TexasUjbfjqxEEXFPJQQMJ7702-71-99 00:27:00 Test Item Value Reference Range Interpretation Comments Hct (test code = Hct) 32.4 42.0-54.0 [facility] TexasUjpphosAUSJNBQUEB5185-32-15 00:27:00 Test Item Value Reference Range Interpretation Comments MCV (test code = MCV) 88.9 80.0-94.0 [facility] TexasSkkgfvgPFLVRDPRBV6661-10-86 00:27:00 Test Item Value Reference Range Interpretation Comments MCH (test code = MCH) 29.5 pg 27.0-31.0 [facility] TexasLgmposaOHEKLWTCLU3975-88-84 00:27:00 Test Item Value Reference Range Interpretation Comments Platelet (test code = Platelet) 216 133-450 [facility] TexasFknpzzmDEOMZQMJOM6099-48-81 00:27:00 Test Item Value Reference Range Interpretation Comments MCHC (test code = MCHC) 33.1 32.0-36.0 [facility]RcfitjcADPVSOBDXK9379-13-78 00:27:00 Test Item Value Reference Range Interpretation Comments RDW (test code = RDW) 12.6 11.5-14.5 [facility]IosxtdcBUOEZVDCNB2671-37-89 00:27:00 Test Item Value Reference Range Interpretation Comments Hgb (test code = Hgb) 10.7 14.0-18.0 [facility]McbhaqkTAVTQPSZEW5911-01-61 00:27:00 Test Item Value Reference Range Interpretation Comments RBC (test code = RBC) 3.65 4.70-6.10 [facility]PjsfqanTTGDNFWKAJ4124-43-07 00:27:00 Test Item Value Reference Range Interpretation Comments WBC (test code = WBC) 8.8 3.7-10.4 [facility] TexasZiwugzjMNABQQETMI8580-20-84 00:27:00 Test Item Value Reference Range Interpretation Comments Basophils # (test code 0.0 See_Comment [Aut omated message] The = Basophils #) system which generated this result tra nsmitted reference range : <=0.2. The reference r jillian was not used to int erpret this result as normal/abnormal . [facility] TexasJkqacviMASXJBNQMG1412-32-25 00:27:00 Test Item Value Reference Range Interpretation Comments Eosinophils # (test code 0.1 See_Comment [A utomated message] The = Eosinophils #) system whic h generated this result tra nsmitted reference range : <=0.5. The reference r jillian was not used to int erpret this result as normal/abnormal . [facility] TexasRlvlomqUEDGSNKGDN0813-64-34 00:27:00 Test Item Value Reference Range Interpretation Comments Monocytes # (test code 0.5 See_Comment [Aut omated message] The = Monocytes #) system which generated this result tra nsmitted reference range : <=0.8. The reference r jillian was not used to int erpret this result as normal/abnormal . [facility]XgolcmjQQPLRVQRZU9071-94-41 00:27:00 Test Item Value Reference Range Interpretation Comments Lymphocytes # (test code = Lymphocytes 1.3 1.0-5.5 #) [facility]LcbpvfgKDYAGCEIEK5967-55-82 00:27:00 Test Item Value Reference Range Interpretation Comments Segs (test code = Segs) 78.2 45.0-75.0 [facility]WfsssdeMNRYEQXFSH0215-74-84 00:27:00 Test Item Value Reference Range Interpretation Comments Lymphocytes (test code = Lymphocytes) 14.8 20.0-40.0 [facility]EpshpthIXCQWVDZOL7682-84-90 00:27:00 Test Item Value Reference Range Interpretation Comments Monocytes (test code = Monocytes) 5.8 2.0-12.0 [facility]CldshwpPQMEPYQTIM8736-85-92 00:27:00 Test Item Value Reference Range Interpretation Comments Segs-Bands # (test code = Segs-Bands #) 6.8 1.5-8.1 [facility] [place]SepuzzdDEUEWUHSZH7313-53-41 00:27:00 Test Item Value Reference Range Interpretation Comments Basophils (test code = 0.3 See_Comment [Aut omated message] The Basophils) system which nerated this result tra nsmitted reference range : <=1.0. The reference r jillian was not used to int erpret this result as normal/abnormal . [facility] TexasDzrcfokPRSVSNAKEF3408-03-31 00:27:00 Test Item Value Reference Range Interpretation Comments Eosinophils (test code = 0.9 See_Comment [A utomated message] The Eosinophils) system which ge nerated this result tra nsmitted reference range : <=4.0. The reference r jillian was not used to int erpret this result as normal/abnormal . [facility]2017-07-13 00:27:00 Test Item Value Reference Range Interpretation Comments eGFR (test code = eGFR) 5 [facility]2017-07-13 00:27:00 Test Item Value Reference Range Interpretation Comments Glucose Lvl (test code = Glucose Lvl) 90 70-99 [facility]2017-07-13 00:27:00 Test Item Value Reference Range Interpretation Comments BUN (test code = BUN) 66 7-22 [facility]2017-07-13 00:27:00 Test Item Value Reference Range Interpretation Comments Creatinine Lvl (test code = Creatinine 10.00 0.50-1.40 Lvl) [facility]2017-07-13 00:27:00 Test Item Value Reference Range Interpretation Comments Sodium Lvl (test code = Sodium Lvl) 136 135-145 [facility]2017-07-13 00:27:00 Test Item Value Reference Range Interpretation Comments ALT (test code = ALT) 23 <=65 [facility]2017-07-13 00:27:00 Test Item Value Reference Range Interpretation Comments Alk Phos (test code = Alk Phos) 140 39-136 [facility]2017-07-13 00:27:00 Test Item Value Reference Range Interpretation Comments AST (test code = AST) 10 <=37 [facility]2017-07-13 00:27:00 Test Item Value Reference Range Interpretation Comments Bili Total (test code = Bili Total) 0.2 0.2-1.3 [facility]2017-07-13 00:27:00 Test Item Value Reference Range Interpretation Comments Chloride Lvl (test code = Chloride Lvl) 104 95-109 [facility]2017-07-13 00:27:00 Test Item Value Reference Range Interpretation Comments Potassium Lvl (test code = Potassium 4.6 3.5-5.1 Lvl) [facility]2017-07-13 00:27:00 Test Item Value Reference Range Interpretation Comments CO2 (test code = CO2) 20 24-32 [facility]2017-07-13 00:27:00 Test Item Value Reference Range Interpretation Comments Calcium Lvl (test code = Calcium Lvl) 8.1 8.5-10.5 [facility]2017-07-13 00:27:00 Test Item Value Reference Range Interpretation Comments Total Protein (test code = Total 8.0 6.4-8.4 Protein) [facility]2017-07-13 00:27:00 Test Item Value Reference Range Interpretation Comments Albumin Lvl (test code = Albumin Lvl) 3.4 3.5-5.0 [facility]2017-07-13 00:27:00 Test Item Value Reference Range Interpretation Comments AGAP (test code = AGAP) 16.6 10.0-20.0 [facility]2017-07-13 00:27:00 Test Item Value Reference Range Interpretation Comments B/C Ratio (test code = B/C Ratio) 7 6-25 [facility]2017-07-13 00:27:00 Test Item Value Reference Range Interpretation Comments Globulin (test code = Globulin) 4.6 2.7-4.2 [facility]2017-07-13 00:27:00 Test Item Value Reference Range Interpretation Comments A/G Ratio (test code = A/G Ratio) 0.7 0.7-1.6 [facility]GryvfyhPWFVYVYUAL9895-98-34 00:27:00 Test Item Value Reference Range Interpretation Comments MPV (test code = MPV) 9.3 7.4-10.4 [facility]OxyeyneLBHEGJQNQA4211-44-39 00:27:00 Test Item Value Reference Range Interpretation Comments Hct (test code = Hct) 32.4 42.0-54.0 [facility]WycgdooEXCYGWNLLG0266-63-93 00:27:00 Test Item Value Reference Range Interpretation Comments MCV (test code = MCV) 88.9 80.0-94.0 [facility] [place]DomlkgkJVOMIVAUVT2132-24-83 00:27:00 Test Item Value Reference Range Interpretation Comments MCH (test code = MCH) 29.5 pg 27.0-31.0 [facility] TexasSgzpemtRTPQNYZXWT5038-53-26 00:27:00 Test Item Value Reference Range Interpretation Comments Platelet (test code = Platelet) 216 133-450 [facility]NxgdjpzZBUDLDIOXN0523-12-08 00:27:00 Test Item Value Reference Range Interpretation Comments MCHC (test code = MCHC) 33.1 32.0-36.0 [facility] [place]MptwavtDYWURLJSMO9218-42-07 00:27:00 Test Item Value Reference Range Interpretation Comments RDW (test code = RDW) 12.6 11.5-14.5 [facility]PlvqoatYXYSTVWZHJ0884-85-24 00:27:00 Test Item Value Reference Range Interpretation Comments Hgb (test code = Hgb) 10.7 14.0-18.0 [facility] TexasFiieadoXXYYEOOLHA2964-28-91 00:27:00 Test Item Value Reference Range Interpretation Comments RBC (test code = RBC) 3.65 4.70-6.10 [facility]CiwnraiNMTZTAYPJL3663-66-64 00:27:00 Test Item Value Reference Range Interpretation Comments WBC (test code = WBC) 8.8 3.7-10.4 [facility]FcvtlsnOFDSCDWSKL2526-18-45 00:27:00 Test Item Value Reference Range Interpretation Comments Basophils # (test code = Basophils #) 0.0 <=0.2 [facility]WdxelkqBQYJGZGROX5185-42-97 00:27:00 Test Item Value Reference Range Interpretation Comments Eosinophils # (test code = Eosinophils 0.1 <=0.5 #) [facility]EucuxccEZKVVFSNAX9360-86-51 00:27:00 Test Item Value Reference Range Interpretation Comments Monocytes # (test code = Monocytes #) 0.5 <=0.8 [facility]LffhrlmAXSMRJCPCO6034-90-61 00:27:00 Test Item Value Reference Range Interpretation Comments Lymphocytes # (test code = Lymphocytes 1.3 1.0-5.5 #) [facility]VgcvukkUGWGWJJOWZ8605-89-40 00:27:00 Test Item Value Reference Range Interpretation Comments Segs (test code = Segs) 78.2 45.0-75.0 [facility] TexasZrdzmfcEBRGWQYXKM6064-71-82 00:27:00 Test Item Value Reference Range Interpretation Comments Lymphocytes (test code = Lymphocytes) 14.8 20.0-40.0 [facility]OjiyvrySTFQEGRIEW2714-69-18 00:27:00 Test Item Value Reference Range Interpretation Comments Monocytes (test code = Monocytes) 5.8 2.0-12.0 [facility] TexasZxsqtukYBKRKXGBZK5803-21-28 00:27:00 Test Item Value Reference Range Interpretation Comments Segs-Bands # (test code = Segs-Bands #) 6.8 1.5-8.1 [facility]NfknbhoQDHDHDAETC6960-73-30 00:27:00 Test Item Value Reference Range Interpretation Comments Basophils (test code = Basophils) 0.3 <=1.0 [facility]QtyiuaoHYKXOSUFQA0720-93-41 00:27:00 Test Item Value Reference Range Interpretation Comments Eosinophils (test code = Eosinophils) 0.9 <=4.0 [facility]2017-07-13 00:27:00 Test Item Value Reference Range Interpretation Comments eGFR (test code = eGFR) 5 [facility]2017-07-13 00:27:00 Test Item Value Reference Range Interpretation Comments Glucose Lvl (test code = Glucose Lvl) 90 70-99 [facility]2017-07-13 00:27:00 Test Item Value Reference Range Interpretation Comments BUN (test code = BUN) 66 7-22 [facility]2017-07-13 00:27:00 Test Item Value Reference Range Interpretation Comments Creatinine Lvl (test code = Creatinine 10.00 0.50-1.40 Lvl) [facility]2017-07-13 00:27:00 Test Item Value Reference Range Interpretation Comments Sodium Lvl (test code = Sodium Lvl) 136 135-145 [facility]2017-07-13 00:27:00 Test Item Value Reference Range Interpretation Comments ALT (test code = ALT) 23 See_Comment [Auto mated message] The system which ge nerated this result transmit cruz reference range : <=65. The reference range was not used to interpr et this result as gee l/abnormal. [facility]2017-07-13 00:27:00 Test Item Value Reference Range Interpretation Comments Alk Phos (test code = Alk Phos) 140 39-136 [facility]2017-07-13 00:27:00 Test Item Value Reference Range Interpretation Comments AST (test code = AST) 10 See_Comment [Auto mated message] The system which ge nerated this result transmit cruz reference range : <=37. The reference range was not used to interpr et this result as gee l/abnormal. [facility]2017-07-13 00:27:00 Test Item Value Reference Range Interpretation Comments Bili Total (test code = Bili Total) 0.2 0.2-1.3 [facility]2017-07-13 00:27:00 Test Item Value Reference Range Interpretation Comments Chloride Lvl (test code = Chloride Lvl) 104 95-109 [facility]2017-07-13 00:27:00 Test Item Value Reference Range Interpretation Comments Potassium Lvl (test code = Potassium 4.6 3.5-5.1 Lvl) [facility]2017-07-13 00:27:00 Test Item Value Reference Range Interpretation Comments CO2 (test code = CO2) 20 24-32 [facility]2017-07-13 00:27:00 Test Item Value Reference Range Interpretation Comments Calcium Lvl (test code = Calcium Lvl) 8.1 8.5-10.5 [facility]2017-07-13 00:27:00 Test Item Value Reference Range Interpretation Comments Total Protein (test code = Total 8.0 6.4-8.4 Protein) [facility]2017-07-13 00:27:00 Test Item Value Reference Range Interpretation Comments Albumin Lvl (test code = Albumin Lvl) 3.4 3.5-5.0 [facility]2017-07-13 00:27:00 Test Item Value Reference Range Interpretation Comments AGAP (test code = AGAP) 16.6 10.0-20.0 [facility]2017-07-13 00:27:00 Test Item Value Reference Range Interpretation Comments B/C Ratio (test code = B/C Ratio) 7 6-25 [facility]2017-07-13 00:27:00 Test Item Value Reference Range Interpretation Comments Globulin (test code = Globulin) 4.6 2.7-4.2 [facility]2017-07-13 00:27:00 Test Item Value Reference Range Interpretation Comments A/G Ratio (test code = A/G Ratio) 0.7 0.7-1.6 [facility]WpeffmmFNUOLEXMXI9699-54-28 00:27:00 Test Item Value Reference Range Interpretation Comments MPV (test code = MPV) 9.3 7.4-10.4 [facility]JhspqpiDUWTWOOZQG1827-59-16 00:27:00 Test Item Value Reference Range Interpretation Comments Hct (test code = Hct) 32.4 42.0-54.0 [facility]ZbhpacaHQIKGDSPFO1449-22-44 00:27:00 Test Item Value Reference Range Interpretation Comments MCV (test code = MCV) 88.9 80.0-94.0 [facility] TexasLofdwzaTZQDYEDOSL6786-80-00 00:27:00 Test Item Value Reference Range Interpretation Comments MCH (test code = MCH) 29.5 pg 27.0-31.0 [facility]IcgrcmaFJOUXMPNNV8194-02-18 00:27:00 Test Item Value Reference Range Interpretation Comments Platelet (test code = Platelet) 216 133-450 [facility] TexasQowxqcfCVKDKPRAGN9700-28-91 00:27:00 Test Item Value Reference Range Interpretation Comments MCHC (test code = MCHC) 33.1 32.0-36.0 [facility] [place]EdciwrbJCRVJRTQLF7249-93-50 00:27:00 Test Item Value Reference Range Interpretation Comments RDW (test code = RDW) 12.6 11.5-14.5 [facility] TexasLjapsplPQMYZNKJNI2026-18-99 00:27:00 Test Item Value Reference Range Interpretation Comments Hgb (test code = Hgb) 10.7 14.0-18.0 [facility]IkwjoydWBNGXCKCQW2306-26-87 00:27:00 Test Item Value Reference Range Interpretation Comments RBC (test code = RBC) 3.65 4.70-6.10 [facility]NixjlxjQAAACKEOTU8428-64-56 00:27:00 Test Item Value Reference Range Interpretation Comments WBC (test code = WBC) 8.8 3.7-10.4 [facility]MvlxfqoWNRFOGNAWE1592-91-30 00:27:00 Test Item Value Reference Range Interpretation Comments Basophils # (test code 0.0 See_Comment [Aut omated message] The = Basophils #) system which generated this result tra nsmitted reference range : <=0.2. The reference r jillian was not used to int erpret this result as normal/abnormal . [facility]MjpvmmmXPJMPAKCLU8208-96-37 00:27:00 Test Item Value Reference Range Interpretation Comments Eosinophils # (test code 0.1 See_Comment [A utomated message] The = Eosinophils #) system whic h generated this result tra nsmitted reference range : <=0.5. The reference r jillian was not used to int erpret this result as normal/abnormal . [facility] TexasFozhktjOQNCPUUYVX6755-55-54 00:27:00 Test Item Value Reference Range Interpretation Comments Monocytes # (test code 0.5 See_Comment [Aut omated message] The = Monocytes #) system which generated this result tra nsmitted reference range : <=0.8. The reference r jillian was not used to int erpret this result as normal/abnormal . [facility]NaypdqiSHVNKXYKMW9069-47-67 00:27:00 Test Item Value Reference Range Interpretation Comments Lymphocytes # (test code = Lymphocytes 1.3 1.0-5.5 #) [facility]WbvydvhMCXICIYPQF9644-89-69 00:27:00 Test Item Value Reference Range Interpretation Comments Segs (test code = Segs) 78.2 45.0-75.0 [facility] TexasCkkyytxWYUSBVNBHM9029-67-25 00:27:00 Test Item Value Reference Range Interpretation Comments Lymphocytes (test code = Lymphocytes) 14.8 20.0-40.0 [facility]YeqmreqLYIQFQKVRZ6752-10-63 00:27:00 Test Item Value Reference Range Interpretation Comments Monocytes (test code = Monocytes) 5.8 2.0-12.0 [facility] TexasFetljwyINKZXBCBIY2669-41-72 00:27:00 Test Item Value Reference Range Interpretation Comments Segs-Bands # (test code = Segs-Bands #) 6.8 1.5-8.1 [facility] TexasFjmjkqnBXFXDGWCNL2208-56-56 00:27:00 Test Item Value Reference Range Interpretation Comments Basophils (test code = 0.3 See_Comment [Aut omated message] The Basophils) system which ge nerated this result tra nsmitted reference range : <=1.0. The reference r jillian was not used to int erpret this result as normal/abnormal . [facility] TexasHvmozklKCTDYWCZGS3656-84-08 00:27:00 Test Item Value Reference Range Interpretation Comments Eosinophils (test code = 0.9 See_Comment [A utomated message] The Eosinophils) system which ge nerated this result tra nsmitted reference range : <=4.0. The reference r jillian was not used to int erpret this result as normal/abnormal . [facility]2017-07-13 00:27:00 Test Item Value Reference Range Interpretation Comments eGFR (test code = eGFR) 5 [facility]2017-07-13 00:27:00 Test Item Value Reference Range Interpretation Comments Glucose Lvl (test code = Glucose Lvl) 90 70-99 [facility] [facility]13 00:27:00 Test Item Value Reference Range Interpretation Comments BUN (test code = BUN) 66 7-22 [facility]2017-07-13 00:27:00 Test Item Value Reference Range Interpretation Comments Creatinine Lvl (test code = Creatinine 10.00 0.50-1.40 Lvl) [facility]2017-07-13 00:27:00 Test Item Value Reference Range Interpretation Comments Sodium Lvl (test code = Sodium Lvl) 136 135-145 [facility]2017-07-13 00:27:00 Test Item Value Reference Range Interpretation Comments ALT (test code = ALT) 23 <=65 [place] 998087-07-13 00:27:00 Test Item Value Reference Range Interpretation Comments Alk Phos (test code = Alk Phos) 140 39-136 [facility]2017-07-13 00:27:00 Test Item Value Reference Range Interpretation Comments AST (test code = AST) 10 <=37 [facility]2017-07-13 00:27:00 Test Item Value Reference Range Interpretation Comments Bili Total (test code = Bili Total) 0.2 0.2-1.3 [facility]2017-07-13 00:27:00 Test Item Value Reference Range Interpretation Comments Chloride Lvl (test code = Chloride Lvl) 104 95-109 [facility]2017-07-13 00:27:00 Test Item Value Reference Range Interpretation Comments Potassium Lvl (test code = Potassium 4.6 3.5-5.1 Lvl) [facility]2017-07-13 00:27:00 Test Item Value Reference Range Interpretation Comments CO2 (test code = CO2) 20 24-32 [facility]2017-07-13 00:27:00 Test Item Value Reference Range Interpretation Comments Calcium Lvl (test code = Calcium Lvl) 8.1 8.5-10.5 [facility]2017-07-13 00:27:00 Test Item Value Reference Range Interpretation Comments Total Protein (test code = Total 8.0 6.4-8.4 Protein) [facility]2017-07-13 00:27:00 Test Item Value Reference Range Interpretation Comments Albumin Lvl (test code = Albumin Lvl) 3.4 3.5-5.0 [facility]2017-07-13 00:27:00 Test Item Value Reference Range Interpretation Comments AGAP (test code = AGAP) 16.6 10.0-20.0 [facility]2017-07-13 00:27:00 Test Item Value Reference Range Interpretation Comments B/C Ratio (test code = B/C Ratio) 7 6-25 [facility]2017-07-13 00:27:00 Test Item Value Reference Range Interpretation Comments Globulin (test code = Globulin) 4.6 2.7-4.2 [facility]2017-07-13 00:27:00 Test Item Value Reference Range Interpretation Comments A/G Ratio (test code = A/G Ratio) 0.7 0.7-1.6 [facility]:27:00 Test Item Value Reference Range Interpretation Comments MPV (test code = MPV) 9.3 7.4-10.4 [facility]XyksenjGTNNFOPXJT0361-16-51 00:27:00 Test Item Value Reference Range Interpretation Comments Hct (test code = Hct) 32.4 42.0-54.0 [facility]RqjxjlwBXIFTLPTML7338-85-15 00:27:00 Test Item Value Reference Range Interpretation Comments MCV (test code = MCV) 88.9 80.0-94.0 [facility]KofdrshFYJPICWGGK5903-25-79 00:27:00 Test Item Value Reference Range Interpretation Comments MCH (test code = MCH) 29.5 pg 27.0-31.0 [facility]HfkgqduDHBUMWOYMI3424-66-09 00:27:00 Test Item Value Reference Range Interpretation Comments Platelet (test code = Platelet) 216 133-450 [facility]WtkgbnmJRYZQKKZQK9312-30-67 00:27:00 Test Item Value Reference Range Interpretation Comments MCHC (test code = MCHC) 33.1 32.0-36.0 [facility]KcxgbrnKTZNXFALAN4083-36-97 00:27:00 Test Item Value Reference Range Interpretation Comments RDW (test code = RDW) 12.6 11.5-14.5 [facility]WwjmeqrLZHICKNKTT2727-58-09 00:27:00 Test Item Value Reference Range Interpretation Comments Hgb (test code = Hgb) 10.7 14.0-18.0 [facility]FifmaepFUDMQBXXUS0700-75-83 00:27:00 Test Item Value Reference Range Interpretation Comments RBC (test code = RBC) 3.65 4.70-6.10 [facility]RotydctSFDGDIQQFS4238-22-39 00:27:00 Test Item Value Reference Range Interpretation Comments WBC (test code = WBC) 8.8 3.7-10.4 [facility]KvknqpgDZJYDRNBWN4315-83-48 00:27:00 Test Item Value Reference Range Interpretation Comments Basophils # (test code = Basophils #) 0.0 <=0.2 [facility]CsftdnpAQDWBFNOCV0779-82-01 00:27:00 Test Item Value Reference Range Interpretation Comments Eosinophils # (test code = Eosinophils 0.1 <=0.5 #) [facility]BewgftlTUEIOJVLGX0670-90-71 00:27:00 Test Item Value Reference Range Interpretation Comments Monocytes # (test code = Monocytes #) 0.5 <=0.8 [facility]LccknraZMGNAQTEOP7494-29-77 00:27:00 Test Item Value Reference Range Interpretation Comments Lymphocytes # (test code = Lymphocytes 1.3 1.0-5.5 #) [facility]JiuhtmqNQNYMCUHOK3424-98-94 00:27:00 Test Item Value Reference Range Interpretation Comments Segs (test code = Segs) 78.2 45.0-75.0 [facility]MdfscnnKCDDIFVLJS2127-59-73 00:27:00 Test Item Value Reference Range Interpretation Comments Lymphocytes (test code = Lymphocytes) 14.8 20.0-40.0 [facility]TnsnvodCGUBVGECTG6667-52-34 00:27:00 Test Item Value Reference Range Interpretation Comments Monocytes (test code = Monocytes) 5.8 2.0-12.0 [facility]WrdkiqbMSPOCKJSVC0086-42-46 00:27:00 Test Item Value Reference Range Interpretation Comments Segs-Bands # (test code = Segs-Bands #) 6.8 1.5-8.1 [facility]GukmfhwZRZUNBFWTN5957-09-48 00:27:00 Test Item Value Reference Range Interpretation Comments Basophils (test code = Basophils) 0.3 <=1.0 [facility]RcteerzXXUSHBLESW4860-90-49 00:27:00 Test Item Value Reference Range Interpretation Comments Eosinophils (test code = Eosinophils) 0.9 <=4.0 [facility]2017-07-12 22:46:00 Test Item Value Reference Range Interpretation Comments eGFR (test code = eGFR) 5 [facility]2017-07-12 22:46:00 Test Item Value Reference Range Interpretation Comments Glucose Lvl (test code = Glucose Lvl) 89 70-99 [facility]2017-07-12 22:46:00 Test Item Value Reference Range Interpretation Comments Sodium Lvl (test code = Sodium Lvl) 134 135-145 [facility]2017-07-12 22:46:00 Test Item Value Reference Range Interpretation Comments BUN (test code = BUN) 65 7-22 [facility]2017-07-12 22:46:00 Test Item Value Reference Range Interpretation Comments Potassium Lvl (test code = Potassium 4.6 3.5-5.1 Lvl) [facility]2017-07-12 22:46:00 Test Item Value Reference Range Interpretation Comments Calcium Lvl (test code = Calcium Lvl) 8.4 8.5-10.5 [facility]2017-07-12 22:46:00 Test Item Value Reference Range Interpretation Comments Chloride Lvl (test code = Chloride Lvl) 104 95-109 [facility]2017-07-12 22:46:00 Test Item Value Reference Range Interpretation Comments CO2 (test code = CO2) 21 24-32 [facility]2017-07-12 22:46:00 Test Item Value Reference Range Interpretation Comments Creatinine Lvl (test code = Creatinine 10.00 0.50-1.40 Lvl) [facility]2017-07-12 22:46:00 Test Item Value Reference Range Interpretation Comments AGAP (test code = AGAP) 13.6 10.0-20.0 [facility]2017-07-12 22:46:00 Test Item Value Reference Range Interpretation Comments eGFR (test code = eGFR) 5 [facility]2017-07-12 22:46:00 Test Item Value Reference Range Interpretation Comments Glucose Lvl (test code = Glucose Lvl) 89 70-99 [facility]2017-07-12 22:46:00 Test Item Value Reference Range Interpretation Comments Sodium Lvl (test code = Sodium Lvl) 134 135-145 [facility]2017-07-12 22:46:00 Test Item Value Reference Range Interpretation Comments BUN (test code = BUN) 65 7-22 [facility]2017-07-12 22:46:00 Test Item Value Reference Range Interpretation Comments Potassium Lvl (test code = Potassium 4.6 3.5-5.1 Lvl) [facility]2017-07-12 22:46:00 Test Item Value Reference Range Interpretation Comments Calcium Lvl (test code = Calcium Lvl) 8.4 8.5-10.5 [facility]2017-07-12 22:46:00 Test Item Value Reference Range Interpretation Comments Chloride Lvl (test code = Chloride Lvl) 104 95-109 [facility]2017-07-12 22:46:00 Test Item Value Reference Range Interpretation Comments CO2 (test code = CO2) - [facility]2017-07-12 22:46:00 Test Item Value Reference Range Interpretation Comments Creatinine Lvl (test code = Creatinine 10.00 0.50-1.40 Lvl) [facility]2017-07-12 22:46:00 Test Item Value Reference Range Interpretation Comments AGAP (test code = AGAP) 13.6 10.0-20.0 [facility]2017-07-12 22:46:00 Test Item Value Reference Range Interpretation Comments eGFR (test code = eGFR) 5 [facility]2017-07-12 22:46:00 Test Item Value Reference Range Interpretation Comments Glucose Lvl (test code = Glucose Lvl) 89 70-99 [facility]2017-07-12 22:46:00 Test Item Value Reference Range Interpretation Comments Sodium Lvl (test code = Sodium Lvl) 134 135-145 [facility]2017-07-12 22:46:00 Test Item Value Reference Range Interpretation Comments BUN (test code = BUN) 65 7-22 [facility]2017-07-12 22:46:00 Test Item Value Reference Range Interpretation Comments Potassium Lvl (test code = Potassium 4.6 3.5-5.1 Lvl) [facility]2017-07-12 22:46:00 Test Item Value Reference Range Interpretation Comments Calcium Lvl (test code = Calcium Lvl) 8.4 8.5-10.5 [facility]2017-07-12 22:46:00 Test Item Value Reference Range Interpretation Comments Chloride Lvl (test code = Chloride Lvl) 104 95-109 [facility]2017-07-12 22:46:00 Test Item Value Reference Range Interpretation Comments CO2 (test code = CO2) - [facility]2017-07-12 22:46:00 Test Item Value Reference Range Interpretation Comments Creatinine Lvl (test code = Creatinine 10.00 0.50-1.40 Lvl) [facility]2017-07-12 22:46:00 Test Item Value Reference Range Interpretation Comments AGAP (test code = AGAP) 13.6 10.0-20.0 [facility]2017-07-12 22:46:00 Test Item Value Reference Range Interpretation Comments eGFR (test code = eGFR) 5 [facility]2017-07-12 22:46:00 Test Item Value Reference Range Interpretation Comments Glucose Lvl (test code = Glucose Lvl) 89 70-99 [facility]2017-07-12 22:46:00 Test Item Value Reference Range Interpretation Comments Sodium Lvl (test code = Sodium Lvl) 134 135-145 [facility]2017-07-12 22:46:00 Test Item Value Reference Range Interpretation Comments BUN (test code = BUN) 65 7-22 [facility]2017-07-12 22:46:00 Test Item Value Reference Range Interpretation Comments Potassium Lvl (test code = Potassium 4.6 3.5-5.1 Lvl) [facility]2017-07-12 22:46:00 Test Item Value Reference Range Interpretation Comments Calcium Lvl (test code = Calcium Lvl) 8.4 8.5-10.5 [facility]2017-07-12 22:46:00 Test Item Value Reference Range Interpretation Comments Chloride Lvl (test code = Chloride Lvl) 104 95-109 [facility]2017-07-12 22:46:00 Test Item Value Reference Range Interpretation Comments CO2 (test code = CO2) 21 24-32 [facility]2017-07-12 22:46:00 Test Item Value Reference Range Interpretation Comments Creatinine Lvl (test code = Creatinine 10.00 0.50-1.40 Lvl) [facility]2017-07-12 22:46:00 Test Item Value Reference Range Interpretation Comments AGAP (test code = AGAP) 13.6 10.0-20.0 [facility]2017-07-12 22:46:00 Test Item Value Reference Range Interpretation Comments eGFR (test code = eGFR) 5 [facility]2017-07-12 22:46:00 Test Item Value Reference Range Interpretation Comments Glucose Lvl (test code = Glucose Lvl) 89 70-99 [facility]2017-07-12 22:46:00 Test Item Value Reference Range Interpretation Comments Sodium Lvl (test code = Sodium Lvl) 134 135-145 [facility]2017-07-12 22:46:00 Test Item Value Reference Range Interpretation Comments BUN (test code = BUN) 65 7-22 [facility]2017-07-12 22:46:00 Test Item Value Reference Range Interpretation Comments Potassium Lvl (test code = Potassium 4.6 3.5-5.1 Lvl) [facility]2017-07-12 22:46:00 Test Item Value Reference Range Interpretation Comments Calcium Lvl (test code = Calcium Lvl) 8.4 8.5-10.5 [facility]2017-07-12 22:46:00 Test Item Value Reference Range Interpretation Comments Chloride Lvl (test code = Chloride Lvl) 104 95-109 [facility]2017-07-12 22:46:00 Test Item Value Reference Range Interpretation Comments CO2 (test code = CO2) 21 24-32 [facility]2017-07-12 22:46:00 Test Item Value Reference Range Interpretation Comments Creatinine Lvl (test code = Creatinine 10.00 0.50-1.40 Lvl) [facility]2017-07-12 22:46:00 Test Item Value Reference Range Interpretation Comments AGAP (test code = AGAP) 13.6 10.0-20.0 [facility]2017-07-12 22:46:00 Test Item Value Reference Range Interpretation Comments eGFR (test code = eGFR) 5 [facility]2017-07-12 22:46:00 Test Item Value Reference Range Interpretation Comments Glucose Lvl (test code = Glucose Lvl) 89 70-99 [facility]2017-07-12 22:46:00 Test Item Value Reference Range Interpretation Comments Sodium Lvl (test code = Sodium Lvl) 134 135-145 [facility]2017-07-12 22:46:00 Test Item Value Reference Range Interpretation Comments BUN (test code = BUN) 65 7-22 [facility]2017-07-12 22:46:00 Test Item Value Reference Range Interpretation Comments Potassium Lvl (test code = Potassium 4.6 3.5-5.1 Lvl) [facility]2017-07-12 22:46:00 Test Item Value Reference Range Interpretation Comments Calcium Lvl (test code = Calcium Lvl) 8.4 8.5-10.5 [facility]2017-07-12 22:46:00 Test Item Value Reference Range Interpretation Comments Chloride Lvl (test code = Chloride Lvl) 104 95-109 [facility]2017-07-12 22:46:00 Test Item Value Reference Range Interpretation Comments CO2 (test code = CO2) 21 24-32 [facility]2017-07-12 22:46:00 Test Item Value Reference Range Interpretation Comments Creatinine Lvl (test code = Creatinine 10.00 0.50-1.40 Lvl) [facility]2017-07-12 22:46:00 Test Item Value Reference Range Interpretation Comments AGAP (test code = AGAP) 13.6 10.0-20.0 [facility]D0349[facility]19-50 20:03:00 Test Item Value Reference Range Interpretation Comments Hep Bs Ag (test code Negative *NA*(03/17/17 = Hep Bs Ag) 3:03 PM) [facility]ZotpnzuZRCHAZGVZR5762-43-70 20:03:00 Test Item Value Reference Range Interpretation Comments Hep C Ab (test code = Positive *ABN*(03/17/17 Hep C Ab) 3:03 PM) [facility] HospitalZgyutivXZSPQMQSJD6195-43-89 20:03:00 Test Item Value Reference Range Interpretation Comments Hep A IgM (test code Negative *NA*(03/17/17 = Hep A IgM) 3:03 PM) [facility] HospitalYuldfecTJRNVREZKV3735-50-20 20:03:00 Test Item Value Reference Range Interpretation Comments Hep B Core IgM (test Negative *NA*(03/17/17 code = Hep B Core 3:03 PM) IgM) [facility] HospitalTxejytvPZXQPHKQTZ9811-96-76 20:03:00 Test Item Value Reference Range Interpretation Comments Hep Bs Ag (test code Negative *NA*(03/17/17 = Hep Bs Ag) 3:03 PM) [facility] HospitalPcbucifKLBXMCVEOP9160-26-47 20:03:00 Test Item Value Reference Range Interpretation Comments Hep C Ab (test code = Positive *ABN*(03/17/17 Hep C Ab) 3:03 PM) [facility] HospitalWqjrpmbWEWFQELNEW3143-24-35 20:03:00 Test Item Value Reference Range Interpretation Comments Hep A IgM (test code Negative *NA*(03/17/17 = Hep A IgM) 3:03 PM) [facility] HospitalFybymgjYZMKDPBEWE9600-34-44 20:03:00 Test Item Value Reference Range Interpretation Comments Hep B Core IgM (test Negative *NA*(03/17/17 code = Hep B Core 3:03 PM) IgM) [facility] HospitalXyhummlYVPEQURTCW1903-98-66 20:03:00 Test Item Value Reference Range Interpretation Comments Hep Bs Ag (test code Negative *NA*(03/17/17 = Hep Bs Ag) 3:03 PM) [facility] HospitalThbqtfzGJGJYYIQCW9560-56-39 20:03:00 Test Item Value Reference Range Interpretation Comments Hep C Ab (test code = Positive *ABN*(03/17/17 Hep C Ab) 3:03 PM) [facility] HospitalHrwgiigJSDEOKRIPX7070-16-98 20:03:00 Test Item Value Reference Range Interpretation Comments Hep A IgM (test code Negative *NA*(03/17/17 = Hep A IgM) 3:03 PM) [facility] HospitalLbfkkjkHLYGKKPCIM8155-73-62 20:03:00 Test Item Value Reference Range Interpretation Comments Hep B Core IgM (test Negative *NA*(03/17/17 code = Hep B Core 3:03 PM) IgM) [facility] HospitalFgdjwqvZVKYJRSGKG3828-46-61 20:03:00 Test Item Value Reference Range Interpretation Comments Hep Bs Ag (test code Negative *NA*(03/17/17 = Hep Bs Ag) 3:03 PM) [facility] HospitalXtohyxeHFWJKOBIHO8301-97-69 20:03:00 Test Item Value Reference Range Interpretation Comments Hep C Ab (test code = Positive *ABN*(03/17/17 Hep C Ab) 3:03 PM) [facility] HospitalOuoazzeRPTCPZESBE3340-58-37 20:03:00 Test Item Value Reference Range Interpretation Comments Hep A IgM (test code Negative *NA*(03/17/17 = Hep A IgM) 3:03 PM) [facility] HospitalUlzrwxqBJQDOFEHXG8966-96-39 20:03:00 Test Item Value Reference Range Interpretation Comments Hep B Core IgM (test Negative *NA*(03/17/17 code = Hep B Core 3:03 PM) IgM) [facility] HospitalVxvefscSMCQSMIJOI3130-01-11 20:03:00 Test Item Value Reference Range Interpretation Comments Hep Bs Ag (test code Negative *NA*(03/17/17 = Hep Bs Ag) 3:03 PM) [facility] HospitalZgwnnmzFLJESOQPFQ2443-31-88 20:03:00 Test Item Value Reference Range Interpretation Comments Hep C Ab (test code = Positive *ABN*(03/17/17 Hep C Ab) 3:03 PM) [facility] HospitalVohknazJGENQDLGLC5583-84-68 20:03:00 Test Item Value Reference Range Interpretation Comments Hep A IgM (test code Negative *NA*(03/17/17 = Hep A IgM) 3:03 PM) [facility] HospitalOymiwsiHFTAGOPJFR7519-12-04 20:03:00 Test Item Value Reference Range Interpretation Comments Hep B Core IgM (test Negative *NA*(03/17/17 code = Hep B Core 3:03 PM) IgM) [facility] HospitalXkwjlnzMJGPSMFEZM1700-89-67 20:03:00 Test Item Value Reference Range Interpretation Comments Hep Bs Ag (test code Negative *NA*(03/17/17 = Hep Bs Ag) 3:03 PM) [facility] HospitalYprruryQDFXAOUMJK3510-80-73 20:03:00 Test Item Value Reference Range Interpretation Comments Hep C Ab (test code = Positive *ABN*(03/17/17 Hep C Ab) 3:03 PM) [facility] HospitalAvvmjcnUODGCIACHZ8839-26-45 20:03:00 Test Item Value Reference Range Interpretation Comments Hep A IgM (test code Negative *NA*(03/17/17 = Hep A IgM) 3:03 PM) [facility] HospitalEsowwrgATCCMMXFVQ5180-30-94 20:03:00 Test Item Value Reference Range Interpretation Comments Hep B Core IgM (test Negative *NA*(03/17/17 code = Hep B Core 3:03 PM) IgM) [facility] HospitalCxtswwfYJYLXQUDUX4124-39-23 16:52:00 Test Item Value Reference Range Interpretation Comments Hep Bs Ab (test code = Hep Bs Ab) no gt [facility] HospitalGtstyulFZGWRAVCMA5588-17-04 16:52:00 Test Item Value Reference Range Interpretation Comments Hep Bs Ab (test code = Hep Bs Ab) no [facility]2017-06-19 16:52:00 Test Item Value Reference Range Interpretation Comments Hep Bs Ab (test code = Hep Bs Ab) no [facility]2017-06-19 16:52:00 Test Item Value Reference Range Interpretation Comments Hep Bs Ab (test code = Hep Bs Ab) no [facility]2017-06-19 16:52:00 Test Item Value Reference Range Interpretation Comments Hep Bs Ab (test code = Hep Bs Ab) [facility]ODBMQBEAB8347-55-07 16:52:00 Test Item Value Reference Range Interpretation Comments Hep Bs Ab (test code = Hep Bs Ab) no [facility]t [facility]ebbzkhIJGBKZVPSURV4183-33-12 10:52:00 Test Item Value Reference Range Interpretation Comments AGAP (test code = AGAP) 14.8 10.0-20.0 [facility]WhslqoxNFNRVEBBYBYM7006-45-04 10:52:00 Test Item Value Reference Range Interpretation Comments eGFR (test code = eGFR) 8 [facility]UvshzyrJRIOFXFXXACE5119-23-73 10:52:00 Test Item Value Reference Range Interpretation Comments Calcium Lvl (test code = Calcium Lvl) 7.6 8.5-10.5 [facility]PzakcboOMOFGPDYEEDA9474-25-90 10:52:00 Test Item Value Reference Range Interpretation Comments Glucose Lvl (test code = Glucose Lvl) 105 70-99 [facility] CenterWceflycWFRBWPQXWYWO5461-34-03 10:52:00 Test Item Value Reference Range Interpretation Comments BUN (test code = BUN) 39 7-22 [facility] CenterRzryjfxBKFDXLKUPUGE7082-19-30 10:52:00 Test Item Value Reference Range Interpretation Comments Sodium Lvl (test code = Sodium Lvl) 137 135-145 [facility] CenterYphazohZQAYPOPYFQYP5668-40-61 10:52:00 Test Item Value Reference Range Interpretation Comments Potassium Lvl (test code = Potassium 3.8 3.5-5.1 Lvl) [facility]IrqtpftRXKUXMUFLCUG7175-02-12 10:52:00 Test Item Value Reference Range Interpretation Comments Creatinine Lvl (test code = Creatinine 7.44 0.50-1.40 Lvl) [facility] CenterWuirawnTCJLTONDTGXW4054-96-26 10:52:00 Test Item Value Reference Range Interpretation Comments Chloride Lvl (test code = Chloride Lvl) 100 95-109 [facility] CenterXepjagkRTMRPLNOATFW4111-37-14 10:52:00 Test Item Value Reference Range Interpretation Comments CO2 (test code = CO2) 26 24-32 [facility]PrsunkeMIRHJLKZNL0145-33-30 10:52:00 Test Item Value Reference Range Interpretation Comments Hct (test code = Hct) 35.4 42.0-54.0 [facility]DbulogkYHMRDKZHGQ0090-19-17 10:52:00 Test Item Value Reference Range Interpretation Comments RBC (test code = RBC) 3.95 4.70-6.10 [facility]PvluygyIMCBYRIAJW7317-27-80 10:52:00 Test Item Value Reference Range Interpretation Comments Hgb (test code = Hgb) 11.7 14.0-18.0 [facility] TexasMidhwlxPDHOFTVEYZ4900-91-36 10:52:00 Test Item Value Reference Range Interpretation Comments WBC (test code = WBC) 8.7 3.7-10.4 [facility] TexasAhsgwxvJBXZTXZWWW4991-52-92 10:52:00 Test Item Value Reference Range Interpretation Comments MPV (test code = MPV) 10.2 7.4-10.4 [facility]XvipntzMFKBAXXRSF0817-05-08 10:52:00 Test Item Value Reference Range Interpretation Comments Platelet (test code = Platelet) 176 133-450 [facility] TexasRnnswpcRNLWUKWDRG0886-55-96 10:52:00 Test Item Value Reference Range Interpretation Comments RDW (test code = RDW) 13.2 11.5-14.5 [facility] TexasRyppyejFEBUMZGENO2090-12-63 10:52:00 Test Item Value Reference Range Interpretation Comments MCHC (test code = MCHC) 33.0 32.0-36.0 [facility] TexasMuvhoeoCVDLMZOWXD2622-91-34 10:52:00 Test Item Value Reference Range Interpretation Comments MCV (test code = MCV) 89.6 80.0-94.0 [facility] TexasPetlvroJBYUHSYCVC2856-07-23 10:52:00 Test Item Value Reference Range Interpretation Comments MCH (test code = MCH) 29.5 pg 27.0-31.0 [facility]OlnbcecTIFSYYQWBMEB3255-14-77 10:52:00 Test Item Value Reference Range Interpretation Comments AGAP (test code = AGAP) 14.8 10.0-20.0 [facility] CenterDbfawswLAWLNPUNUHFI7633-75-54 10:52:00 Test Item Value Reference Range Interpretation Comments eGFR (test code = eGFR) 8 [facility] CenterHdninpwBGEPCSLPFKYC0031-48-40 10:52:00 Test Item Value Reference Range Interpretation Comments Calcium Lvl (test code = Calcium Lvl) 7.6 8.5-10.5 [facility]CxgeykaCTXKSPABWIZA6182-98-27 10:52:00 Test Item Value Reference Range Interpretation Comments Glucose Lvl (test code = Glucose Lvl) 105 70-99 [facility] CenterNfcpvzbHRVRMQRPWKKI7240-38-37 10:52:00 Test Item Value Reference Range Interpretation Comments BUN (test code = BUN) 39 7-22 [facility] CenterCslqphrKSKUYFWYCNLW3124-81-42 10:52:00 Test Item Value Reference Range Interpretation Comments Sodium Lvl (test code = Sodium Lvl) 137 135-145 [facility] CenterSuwiwjtSOWGPBKPCBAF3596-45-41 10:52:00 Test Item Value Reference Range Interpretation Comments Potassium Lvl (test code = Potassium 3.8 3.5-5.1 Lvl) [facility] CenterHcreqqgLISKQVRBOMKH6127-14-43 10:52:00 Test Item Value Reference Range Interpretation Comments Creatinine Lvl (test code = Creatinine 7.44 0.50-1.40 Lvl) [facility] CenterLtxyifeDHIJTYFEUFHZ2888-46-03 10:52:00 Test Item Value Reference Range Interpretation Comments Chloride Lvl (test code = Chloride Lvl) 100 95-109 [facility] CenterIldpataBCIODFJCXHQZ0663-75-80 10:52:00 Test Item Value Reference Range Interpretation Comments CO2 (test code = CO2) 26 24-32 [facility] TexasHumcuztPZQODRGPBM9238-17-41 10:52:00 Test Item Value Reference Range Interpretation Comments Hct (test code = Hct) 35.4 42.0-54.0 [facility] TexasCvardsnAMLDJLQPRX6360-18-06 10:52:00 Test Item Value Reference Range Interpretation Comments RBC (test code = RBC) 3.95 4.70-6.10 [facility] TexasCyglcqhZKFJIVNFAT0572-92-36 10:52:00 Test Item Value Reference Range Interpretation Comments Hgb (test code = Hgb) 11.7 14.0-18.0 [facility] TexasGvdjiyxARIUDHGSMU5039-76-63 10:52:00 Test Item Value Reference Range Interpretation Comments WBC (test code = WBC) 8.7 3.7-10.4 [facility] TexasAzfhqmfXCVGIGLMXX9380-92-78 10:52:00 Test Item Value Reference Range Interpretation Comments MPV (test code = MPV) 10.2 7.4-10.4 [facility] TexasNhyclcvUGQLLRVNVF1155-29-36 10:52:00 Test Item Value Reference Range Interpretation Comments Platelet (test code = Platelet) 176 133-450 [facility] TexasDdgjqajXOSDDEVDGA8346-35-54 10:52:00 Test Item Value Reference Range Interpretation Comments RDW (test code = RDW) 13.2 11.5-14.5 [facility] TexasKbyurdzIHSGYNXEYB2506-76-32 10:52:00 Test Item Value Reference Range Interpretation Comments MCHC (test code = MCHC) 33.0 32.0-36.0 [facility] TexasUuyytlwKZYSRVZFYB1823-21-21 10:52:00 Test Item Value Reference Range Interpretation Comments MCV (test code = MCV) 89.6 80.0-94.0 [facility] TexasWuxwrvnDPCWMHSSKF4219-00-81 10:52:00 Test Item Value Reference Range Interpretation Comments MCH (test code = MCH) 29.5 pg 27.0-31.0 [facility] CenterIxcywmyGVXPURBWFNEC9365-33-84 10:52:00 Test Item Value Reference Range Interpretation Comments AGAP (test code = AGAP) 14.8 10.0-20.0 [facility] CenterZracaphMQNWQSDITLHL6120-30-53 10:52:00 Test Item Value Reference Range Interpretation Comments eGFR (test code = eGFR) 8 [facility] CenterJvesufaZFDFNXXUPGKL4333-61-52 10:52:00 Test Item Value Reference Range Interpretation Comments Calcium Lvl (test code = Calcium Lvl) 7.6 8.5-10.5 [facility] CenterUhiyaotUQPLNHFEIRPH1932-81-21 10:52:00 Test Item Value Reference Range Interpretation Comments Glucose Lvl (test code = Glucose Lvl) 105 70-99 [facility] CenterCypbjgsMXIEEMEALAMA3430-36-49 10:52:00 Test Item Value Reference Range Interpretation Comments BUN (test code = BUN) 39 7-22 [facility] CenterQgjzjzsDHRIELBKZXSU8484-50-68 10:52:00 Test Item Value Reference Range Interpretation Comments Sodium Lvl (test code = Sodium Lvl) 137 135-145 [facility] CenterSnuqoxgZTTGXPKLAHMM8333-48-67 10:52:00 Test Item Value Reference Range Interpretation Comments Potassium Lvl (test code = Potassium 3.8 3.5-5.1 Lvl) [facility] CenterGlwtdizDKQAJEVTYNET9296-58-98 10:52:00 Test Item Value Reference Range Interpretation Comments Creatinine Lvl (test code = Creatinine 7.44 0.50-1.40 Lvl) [facility] CenterUbkyntyIPIXFUGTXZJC4983-27-40 10:52:00 Test Item Value Reference Range Interpretation Comments Chloride Lvl (test code = Chloride Lvl) 100 95-109 [facility] CenterVvannaeEFAPYCOLEIVO9027-51-53 10:52:00 Test Item Value Reference Range Interpretation Comments CO2 (test code = CO2) 26 24-32 [facility] TexasQlchgcyMKQPSNDMHF3603-94-13 10:52:00 Test Item Value Reference Range Interpretation Comments Hct (test code = Hct) 35.4 42.0-54.0 [facility] TexasAqhsrzeMEFUSJDUEL7112-51-42 10:52:00 Test Item Value Reference Range Interpretation Comments RBC (test code = RBC) 3.95 4.70-6.10 [facility] TexasKhqdqbwRYFWELULBF0250-66-10 10:52:00 Test Item Value Reference Range Interpretation Comments Hgb (test code = Hgb) 11.7 14.0-18.0 [facility] TexasWowlvrvZRFORWOQJZ2658-33-04 10:52:00 Test Item Value Reference Range Interpretation Comments WBC (test code = WBC) 8.7 3.7-10.4 [facility] TexasFjdjtwxVLRMKGBHJH8281-19-56 10:52:00 Test Item Value Reference Range Interpretation Comments MPV (test code = MPV) 10.2 7.4-10.4 [facility] TexasSemgzfjXDWTCXGWBM9675-51-67 10:52:00 Test Item Value Reference Range Interpretation Comments Platelet (test code = Platelet) 176 133-450 [facility] TexasAvwzyaaQNPPDFXKJF8750-49-45 10:52:00 Test Item Value Reference Range Interpretation Comments RDW (test code = RDW) 13.2 11.5-14.5 [facility] TexasRaqjdrsMCEIFOMDXO1304-04-83 10:52:00 Test Item Value Reference Range Interpretation Comments MCHC (test code = MCHC) 33.0 32.0-36.0 [facility] TexasHsnldszIYOTWJWLKT8891-50-12 10:52:00 Test Item Value Reference Range Interpretation Comments MCV (test code = MCV) 89.6 80.0-94.0 [facility] TexasUhlmyrpUQQCCAOVBT0872-13-15 10:52:00 Test Item Value Reference Range Interpretation Comments MCH (test code = MCH) 29.5 pg 27.0-31.0 [facility]AfkjhktZGVKVSMAXQQC0138-20-14 10:52:00 Test Item Value Reference Range Interpretation Comments AGAP (test code = AGAP) 14.8 10.0-20.0 [facility] CenterRvgzbgnFNRAPKPDZBJG0754-53-78 10:52:00 Test Item Value Reference Range Interpretation Comments eGFR (test code = eGFR) 8 [facility] CenterJrplspjJCYAHUIRYDKB6060-89-45 10:52:00 Test Item Value Reference Range Interpretation Comments Calcium Lvl (test code = Calcium Lvl) 7.6 8.5-10.5 [facility] CenterXbiedmiAKWUGZEHVVBM1118-07-86 10:52:00 Test Item Value Reference Range Interpretation Comments Glucose Lvl (test code = Glucose Lvl) 105 70-99 [facility] CenterXinjnpfFEDCWHAMBNJO6215-75-62 10:52:00 Test Item Value Reference Range Interpretation Comments BUN (test code = BUN) 39 7-22 [facility]QskpmppVRDPHDFCBQGL4182-93-18 10:52:00 Test Item Value Reference Range Interpretation Comments Sodium Lvl (test code = Sodium Lvl) 137 135-145 [facility] CenterDosgoseMCUVOBJFUOVB2435-74-67 10:52:00 Test Item Value Reference Range Interpretation Comments Potassium Lvl (test code = Potassium 3.8 3.5-5.1 Lvl) [facility] CenterApfwkhoXPPVQQLFVETT1396-72-59 10:52:00 Test Item Value Reference Range Interpretation Comments Creatinine Lvl (test code = Creatinine 7.44 0.50-1.40 Lvl) [facility] CenterDfummfdZZBCNPYRBJRN2090-98-41 10:52:00 Test Item Value Reference Range Interpretation Comments Chloride Lvl (test code = Chloride Lvl) 100 95-109 [facility] CenterKlncavzLHQTDZUHEYIN8701-31-35 10:52:00 Test Item Value Reference Range Interpretation Comments CO2 (test code = CO2) 26 24-32 [facility] TexasJlijescTVVXOZJXJY1010-82-83 10:52:00 Test Item Value Reference Range Interpretation Comments Hct (test code = Hct) 35.4 42.0-54.0 [facility] TexasEzrigqpPOZHGGVHGF6071-38-20 10:52:00 Test Item Value Reference Range Interpretation Comments RBC (test code = RBC) 3.95 4.70-6.10 [facility] TexasCkfqcjaRLRDBBRFTC1979-01-92 10:52:00 Test Item Value Reference Range Interpretation Comments Hgb (test code = Hgb) 11.7 14.0-18.0 [facility] TexasWjtmtykRBMVGZTJTP6838-63-93 10:52:00 Test Item Value Reference Range Interpretation Comments WBC (test code = WBC) 8.7 3.7-10.4 [facility] TexasBvltmztDMXMYEYEDG9218-88-10 10:52:00 Test Item Value Reference Range Interpretation Comments MPV (test code = MPV) 10.2 7.4-10.4 [facility] TexasQgykvmfEYMIJQIAXK9780-16-05 10:52:00 Test Item Value Reference Range Interpretation Comments Platelet (test code = Platelet) 176 133-450 [facility] TexasVkajrzlBAVEIQLOEX9884-63-43 10:52:00 Test Item Value Reference Range Interpretation Comments RDW (test code = RDW) 13.2 11.5-14.5 [facility] TexasUajskzvCQAUZCOQTK7911-94-53 10:52:00 Test Item Value Reference Range Interpretation Comments MCHC (test code = MCHC) 33.0 32.0-36.0 [facility] TexasBbuwxhtYLOLVIFXCR7232-03-38 10:52:00 Test Item Value Reference Range Interpretation Comments MCV (test code = MCV) 89.6 80.0-94.0 [facility] TexasJwenkdsWHEUEMEGSH6445-05-04 10:52:00 Test Item Value Reference Range Interpretation Comments MCH (test code = MCH) 29.5 pg 27.0-31.0 [facility]MfwoxbjVRKZEXQNYOXN2198-30-38 10:52:00 Test Item Value Reference Range Interpretation Comments AGAP (test code = AGAP) 14.8 10.0-20.0 [facility] CenterKnisvenZDVCZUXLNXWE5144-98-71 10:52:00 Test Item Value Reference Range Interpretation Comments eGFR (test code = eGFR) 8 [facility] CenterVzkvidqSBOPWZBEKNNN3662-99-59 10:52:00 Test Item Value Reference Range Interpretation Comments Calcium Lvl (test code = Calcium Lvl) 7.6 8.5-10.5 [facility] CenterIchznseEBKKSBUOOSVH9517-24-96 10:52:00 Test Item Value Reference Range Interpretation Comments Glucose Lvl (test code = Glucose Lvl) 105 70-99 [facility] CenterLpkrjzqKZUUIIUPQJAG6580-73-01 10:52:00 Test Item Value Reference Range Interpretation Comments BUN (test code = BUN) 39 7-22 [facility] CenterZribsmzAEAKSONFFLDH2011-17-11 10:52:00 Test Item Value Reference Range Interpretation Comments Sodium Lvl (test code = Sodium Lvl) 137 135-145 [facility] CenterYlmyskoYDKJDXDLMJXU5115-25-77 10:52:00 Test Item Value Reference Range Interpretation Comments Potassium Lvl (test code = Potassium 3.8 3.5-5.1 Lvl) [facility] CenterOrrlfpvOUFSXCGJZYMM8324-98-48 10:52:00 Test Item Value Reference Range Interpretation Comments Creatinine Lvl (test code = Creatinine 7.44 0.50-1.40 Lvl) [facility] CenterTiyfwcuBBXROGRMPSLA0187-58-83 10:52:00 Test Item Value Reference Range Interpretation Comments Chloride Lvl (test code = Chloride Lvl) 100 95-109 [facility] CenterWcfmajtWLJOVQAWSQRA5522-46-53 10:52:00 Test Item Value Reference Range Interpretation Comments CO2 (test code = CO2) 26 24-32 [facility]OarbpmrTTJRSBZNOI4763-65-97 10:52:00 Test Item Value Reference Range Interpretation Comments Hct (test code = Hct) 35.4 42.0-54.0 [facility] TexasGnxkyuuRFHPBIAOTM0805-40-74 10:52:00 Test Item Value Reference Range Interpretation Comments RBC (test code = RBC) 3.95 4.70-6.10 [facility] TexasNoiopdjQWSIRGQBXB8537-36-42 10:52:00 Test Item Value Reference Range Interpretation Comments Hgb (test code = Hgb) 11.7 14.0-18.0 [facility] TexasTbvxekrDBTQVPGDSG8684-07-95 10:52:00 Test Item Value Reference Range Interpretation Comments WBC (test code = WBC) 8.7 3.7-10.4 [facility] TexasErycglpMJMDEGEAZC5103-86-03 10:52:00 Test Item Value Reference Range Interpretation Comments MPV (test code = MPV) 10.2 7.4-10.4 [facility] TexasNfqmqyiETUAJJCVIC6721-57-02 10:52:00 Test Item Value Reference Range Interpretation Comments Platelet (test code = Platelet) 176 133-450 [facility] TexasDbcbsmiKOXHNWOJWT3497-93-99 10:52:00 Test Item Value Reference Range Interpretation Comments RDW (test code = RDW) 13.2 11.5-14.5 [facility] TexasCoyznbaDMLHKFWSUF5548-68-53 10:52:00 Test Item Value Reference Range Interpretation Comments MCHC (test code = MCHC) 33.0 32.0-36.0 [facility] TexasZwkewixJPUHEWAHBR0440-37-54 10:52:00 Test Item Value Reference Range Interpretation Comments MCV (test code = MCV) 89.6 80.0-94.0 [facility]PmkekglEJIGSUMTCI0513-87-98 10:52:00 Test Item Value Reference Range Interpretation Comments MCH (test code = MCH) 29.5 pg 27.0-31.0 [facility] CenterBxtwtykYQCJHZKOKMSA3924-50-93 10:52:00 Test Item Value Reference Range Interpretation Comments AGAP (test code = AGAP) 14.8 10.0-20.0 [facility] CenterCskifxiKSJOAWGTEHYC0394-05-81 10:52:00 Test Item Value Reference Range Interpretation Comments eGFR (test code = eGFR) 8 [facility] CenterUamqhhcQQHIZTQWAYOK0890-29-44 10:52:00 Test Item Value Reference Range Interpretation Comments Calcium Lvl (test code = Calcium Lvl) 7.6 8.5-10.5 [facility] CenterMimisctJYLZMSEXCYGW4055-51-32 10:52:00 Test Item Value Reference Range Interpretation Comments Glucose Lvl (test code = Glucose Lvl) 105 70-99 [facility] CenterOmfsvnhQAHPAOIDNFRB4688-83-00 10:52:00 Test Item Value Reference Range Interpretation Comments BUN (test code = BUN) 39 7-22 [facility] CenterUtelsitLUHMCKGIRRZV9043-98-29 10:52:00 Test Item Value Reference Range Interpretation Comments Sodium Lvl (test code = Sodium Lvl) 137 135-145 [facility] CenterDymlvzgRXTZEINOBQFJ9136-62-30 10:52:00 Test Item Value Reference Range Interpretation Comments Potassium Lvl (test code = Potassium 3.8 3.5-5.1 Lvl) [facility] CenterZvsftwxNFWDAUNGTETO1068-29-52 10:52:00 Test Item Value Reference Range Interpretation Comments Creatinine Lvl (test code = Creatinine 7.44 0.50-1.40 Lvl) [facility] CenterNcfdjmaTIVITNIGWSFQ6657-56-04 10:52:00 Test Item Value Reference Range Interpretation Comments Chloride Lvl (test code = Chloride Lvl) 100 95-109 [facility] CenterSzyuhmgNHXSZKGALGFK9569-55-23 10:52:00 Test Item Value Reference Range Interpretation Comments CO2 (test code = CO2) 26 24-32 [facility] TexasHeadobeWWTOSFNHZW0625-21-68 10:52:00 Test Item Value Reference Range Interpretation Comments Hct (test code = Hct) 35.4 42.0-54.0 [facility] TexasDolmsefZFDUXUKYVO5535-29-78 10:52:00 Test Item Value Reference Range Interpretation Comments RBC (test code = RBC) 3.95 4.70-6.10 [facility] TexasNuumghoAYPQZOKLGP4683-23-80 10:52:00 Test Item Value Reference Range Interpretation Comments Hgb (test code = Hgb) 11.7 14.0-18.0 [facility] TexasElgnvnqIFPEDPWVUV6072-32-53 10:52:00 Test Item Value Reference Range Interpretation Comments WBC (test code = WBC) 8.7 3.7-10.4 [facility] TexasHkdgilmRCBTEVQLVT2735-99-14 10:52:00 Test Item Value Reference Range Interpretation Comments MPV (test code = MPV) 10.2 7.4-10.4 [facility] TexasDfhpwdbSARCGDGLQG4071-95-22 10:52:00 Test Item Value Reference Range Interpretation Comments Platelet (test code = Platelet) 176 133-450 [facility] TexasEqszoayNVXDXCFOVA8491-70-08 10:52:00 Test Item Value Reference Range Interpretation Comments RDW (test code = RDW) 13.2 11.5-14.5 [facility] TexasHomelrvRZHBTXSVWC3889-51-43 10:52:00 Test Item Value Reference Range Interpretation Comments MCHC (test code = MCHC) 33.0 32.0-36.0 [facility] TexasOdwvgmpLSOXMJZCUM3462-61-33 10:52:00 Test Item Value Reference Range Interpretation Comments MCV (test code = MCV) 89.6 80.0-94.0 [facility] TexasRakxbawJOTNJMZUES2318-04-18 10:52:00 Test Item Value Reference Range Interpretation Comments MCH (test code = MCH) 29.5 pg 27.0-31.0 [facility]PqnnfwxURTXBTURYI5472-21-29 20:06:00 Test Item Value Reference Range Interpretation Comments Hep A IgM (test code Negative *NA*(03/13/17 = Hep A IgM) 3:06 PM) [facility] HospitalMmabodhWKCBMXYQFK9330-63-33 20:06:00 Test Item Value Reference Range Interpretation Comments Hep Bs Ag (test code Negative *NA*(03/13/17 = Hep Bs Ag) 3:06 PM) [facility] HospitalGcugilwVSZXMMRASF8339-98-30 20:06:00 Test Item Value Reference Range Interpretation Comments Hep B Core IgM (test Negative *NA*(03/13/17 code = Hep B Core 3:06 PM) IgM) [facility] HospitalVzqjtkfGYXDFOXOXW7190-15-04 20:06:00 Test Item Value Reference Range Interpretation Comments Hep C Ab (test code = Positive *ABN*(03/13/17 Hep C Ab) 3:06 PM) [facility] HospitalCnxxujqACELFZERIR3326-63-88 20:06:00 Test Item Value Reference Range Interpretation Comments Hep B Core Ab (test Negative *NA*(03/13/17 code = Hep B Core Ab) 3:06 PM) [facility] HospitalYyucolgRNXUOYCMRV6682-72-56 20:06:00 Test Item Value Reference Range Interpretation Comments Hep A IgM (test code Negative *NA*(03/13/17 = Hep A IgM) 3:06 PM) [facility] HospitalFqdtpobIVWKNEWMOI8265-64-89 20:06:00 Test Item Value Reference Range Interpretation Comments Hep Bs Ag (test code Negative *NA*(03/13/17 = Hep Bs Ag) 3:06 PM) [facility] HospitalEcsucsfZPQMIAVPRQ6515-04-66 20:06:00 Test Item Value Reference Range Interpretation Comments Hep B Core IgM (test Negative *NA*(03/13/17 code = Hep B Core 3:06 PM) IgM) [facility] HospitalLfztuceTBZAOCLDXR8010-99-91 20:06:00 Test Item Value Reference Range Interpretation Comments Hep C Ab (test code = Positive *ABN*(03/13/17 Hep C Ab) 3:06 PM) [facility] HospitalSrygihxGXENVPUOGU8251-35-62 20:06:00 Test Item Value Reference Range Interpretation Comments Hep B Core Ab (test Negative *NA*(03/13/17 code = Hep B Core Ab) 3:06 PM) [facility] HospitalKpuvlotYICCPFEYHO0142-71-77 20:06:00 Test Item Value Reference Range Interpretation Comments Hep A IgM (test code Negative *NA*(03/13/17 = Hep A IgM) 3:06 PM) [facility] HospitalKfgucfiZVEDYMZHRS6330-54-47 20:06:00 Test Item Value Reference Range Interpretation Comments Hep Bs Ag (test code Negative *NA*(03/13/17 = Hep Bs Ag) 3:06 PM) [facility] HospitalChlelwkVCHFLVBQSF4985-25-13 20:06:00 Test Item Value Reference Range Interpretation Comments Hep B Core IgM (test Negative *NA*(03/13/17 code = Hep B Core 3:06 PM) IgM) [facility] HospitalYxksjlbICAPRHOJFQ2979-89-96 20:06:00 Test Item Value Reference Range Interpretation Comments Hep C Ab (test code = Positive *ABN*(03/13/17 Hep C Ab) 3:06 PM) [facility] HospitalPqnzymiGBKRZXTXEN3128-97-48 20:06:00 Test Item Value Reference Range Interpretation Comments Hep B Core Ab (test Negative *NA*(03/13/17 code = Hep B Core Ab) 3:06 PM) [facility] HospitalWarrzreIFTFAWZXAP2622-52-93 20:06:00 Test Item Value Reference Range Interpretation Comments Hep A IgM (test code Negative *NA*(03/13/17 = Hep A IgM) 3:06 PM) [facility] HospitalMfmwkjhNYHOSVMVMK4410-15-69 20:06:00 Test Item Value Reference Range Interpretation Comments Hep Bs Ag (test code Negative *NA*(03/13/17 = Hep Bs Ag) 3:06 PM) [facility] HospitalBxopvgzRJSKUXKFBC1336-55-57 20:06:00 Test Item Value Reference Range Interpretation Comments Hep B Core IgM (test Negative *NA*(03/13/17 code = Hep B Core 3:06 PM) IgM) [facility] HospitalJzdixbpANTVIPZCCI1265-78-16 20:06:00 Test Item Value Reference Range Interpretation Comments Hep C Ab (test code = Positive *ABN*(03/13/17 Hep C Ab) 3:06 PM) [facility] HospitalMgkkjuySUWVNGIFEC5316-18-97 20:06:00 Test Item Value Reference Range Interpretation Comments Hep B Core Ab (test Negative *NA*(03/13/17 code = Hep B Core Ab) 3:06 PM) [facility] HospitalGhmxheoEFFJFGUZHU5254-21-83 20:06:00 Test Item Value Reference Range Interpretation Comments Hep A IgM (test code Negative *NA*(03/13/17 = Hep A IgM) 3:06 PM) [facility] HospitalHnubzaeZVKVUCITUI2158-96-93 20:06:00 Test Item Value Reference Range Interpretation Comments Hep Bs Ag (test code Negative *NA*(03/13/17 = Hep Bs Ag) 3:06 PM) [facility] HospitalOdlewevRKCEXJWISF2145-23-09 20:06:00 Test Item Value Reference Range Interpretation Comments Hep B Core IgM (test Negative *NA*(03/13/17 code = Hep B Core 3:06 PM) IgM) [facility] HospitalYreuwteICKYMNFKTZ6949-88-80 20:06:00 Test Item Value Reference Range Interpretation Comments Hep C Ab (test code = Positive *ABN*(03/13/17 Hep C Ab) 3:06 PM) [facility] HospitalIsksfpaQWMEEFHAGZ2718-71-49 20:06:00 Test Item Value Reference Range Interpretation Comments Hep B Core Ab (test Negative *NA*(03/13/17 code = Hep B Core Ab) 3:06 PM) [facility] HospitalYgctldnSSVIUXMQZW1453-82-87 20:06:00 Test Item Value Reference Range Interpretation Comments Hep A IgM (test code Negative *NA*(03/13/17 = Hep A IgM) 3:06 PM) [facility] HospitalNxrmvjoYJBGMNYXCS3915-19-39 20:06:00 Test Item Value Reference Range Interpretation Comments Hep Bs Ag (test code Negative *NA*(03/13/17 = Hep Bs Ag) 3:06 PM) [facility] HospitalTwjlhcmOWKKGZWDZH6701-79-46 20:06:00 Test Item Value Reference Range Interpretation Comments Hep B Core IgM (test Negative *NA*(03/13/17 code = Hep B Core 3:06 PM) IgM) [facility] HospitalObctdfkALDHZGKDNX4285-51-11 20:06:00 Test Item Value Reference Range Interpretation Comments Hep C Ab (test code = Positive *ABN*(03/13/17 Hep C Ab) 3:06 PM) [facility] HospitalNffbwzjATCXPKFAYL0529-08-84 20:06:00 Test Item Value Reference Range Interpretation Comments Hep B Core Ab (test Negative *NA*(03/13/17 code = Hep B Core Ab) 3:06 PM) [facility] [facility]WZKPZVGGVI7093[facility]30-51 11:14:00 Test Item Value Reference Range Interpretation Comments Hep Be Ab (test code = Hep Be Ab) Negative [facility]IkllsdeQHOOKWQDVK4405-14-99 11:14:00 Test Item Value Reference Range Interpretation Comments Hep Be Ab (test code = Hep Be Ab) Negative [facility] CenterZzqhavaDRVHYOIXVV5807-11-89 11:14:00 Test Item Value Reference Range Interpretation Comments Hep Be Ab (test code = Hep Be Ab) Negative [facility] CenterZhlyrwpBLSFGWHMVO0158-13-65 11:14:00 Test Item Value Reference Range Interpretation Comments Hep Be Ab (test code = Hep Be Ab) Negative [facility]PllozzqOAWJDSMEUX5054-58-72 11:14:00 Test Item Value Reference Range Interpretation Comments Hep Be Ab (test code = Hep Be Ab) Negative [facility] HospitalXewgwbiGUWWDYXUAU0624-34-62 11:14:00 Test Item Value Reference Range Interpretation Comments Hep Be Ab (test code = Hep Be Ab) Negative [facility] HospitalAcvmqncERLAIWAPZM6380-22-73 23:21:00 Test Item Value Reference Range Interpretation Comments Hep Bs Ag (test code Negative *NA*(03/12/17 = Hep Bs Ag) 6:21 PM) [facility] HospitalAtryeeuIHLAKEBVME6647-19-19 23:21:00 Test Item Value Reference Range Interpretation Comments Hep Bs Ag (test code Negative *NA*(03/12/17 = Hep Bs Ag) 6:21 PM) [facility] HospitalMeochsbLJHBZNWDVK3548-42-83 23:21:00 Test Item Value Reference Range Interpretation Comments Hep B Core Ab (test Negative *NA*(03/12/17 code = Hep B Core Ab) 6:21 PM) [facility] HospitalUsetlyrBPYHLQMIMR5943-48-47 23:21:00 Test Item Value Reference Range Interpretation Comments Hep Bs Ag (test code Negative *NA*(03/12/17 = Hep Bs Ag) 6:21 PM) [facility] HospitalUhclzfrFUCGTIZFVZ8762-79-28 23:21:00 Test Item Value Reference Range Interpretation Comments Hep Bs Ag (test code Negative *NA*(03/12/17 = Hep Bs Ag) 6:21 PM) [facility] HospitalDarweyyYNDWFXXEJV1362-04-64 23:21:00 Test Item Value Reference Range Interpretation Comments Hep B Core Ab (test Negative *NA*(03/12/17 code = Hep B Core Ab) 6:21 PM) [facility] HospitalWhzxvkcIOPKVCMOKH8223-01-50 23:21:00 Test Item Value Reference Range Interpretation Comments Hep Bs Ag (test code Negative *NA*(03/12/17 = Hep Bs Ag) 6:21 PM) [facility] HospitalHodglhaNODPWSLFXG4686-74-40 23:21:00 Test Item Value Reference Range Interpretation Comments Hep Bs Ag (test code Negative *NA*(03/12/17 = Hep Bs Ag) 6:21 PM) [facility] HospitalMkdtnpfKJMTTTCJHZ1342-69-79 23:21:00 Test Item Value Reference Range Interpretation Comments Hep B Core Ab (test Negative *NA*(03/12/17 code = Hep B Core Ab) 6:21 PM) [facility]lswyzxCEFGURQHBX6700-91-98 23:21:00 Test Item Value Reference Range Interpretation Comments Hep Bs Ag (test code Negative *NA*(03/12/17 = Hep Bs Ag) 6:21 PM) [facility] HospitalIyowisuCHYIAEEJYL5368-56-73 23:21:00 Test Item Value Reference Range Interpretation Comments Hep Bs Ag (test code Negative *NA*(03/12/17 = Hep Bs Ag) 6:21 PM) [facility] HospitalYkkrnxnWVTZOZWFLW4705-15-40 23:21:00 Test Item Value Reference Range Interpretation Comments Hep B Core Ab (test Negative *NA*(03/12/17 code = Hep B Core Ab) 6:21 PM) [facility] HnnxtqtWDRPCYKNKP9381-62-88 23:21:00 Test Item Value Reference Range Interpretation Comments Hep Bs Ag (test code Negative *NA*(03/12/17 = Hep Bs Ag) 6:21 PM) [facility] HospitalQzbosuzBJCXIDPDYC1970-79-80 23:21:00 Test Item Value Reference Range Interpretation Comments Hep Bs Ag (test code Negative *NA*(03/12/17 = Hep Bs Ag) 6:21 PM) [facility] HospitalJuwugejWOWEWQPHGQ1960-53-68 23:21:00 Test Item Value Reference Range Interpretation Comments Hep B Core Ab (test Negative *NA*(03/12/17 code = Hep B Core Ab) 6:21 PM) [facility] HospitalTkurdtmBWRNIMJHMP6859-55-98 23:21:00 Test Item Value Reference Range Interpretation Comments Hep Bs Ag (test code Negative *NA*(03/12/17 = Hep Bs Ag) 6:21 PM) [facility] HospitalQalkjtmBBMKQWLLSV9672-00-17 23:21:00 Test Item Value Reference Range Interpretation Comments Hep Bs Ag (test code Negative *NA*(03/12/17 = Hep Bs Ag) 6:21 PM) [facility] ZkwcywzSMGPERDIMZ0961-65-54 23:21:00 Test Item Value Reference Range Interpretation Comments Hep B Core Ab (test Negative *NA*(03/12/17 code = Hep B Core Ab) 6:21 PM) [facility] HospitalannCHEM ICCYD8530-15-27 11:03:00 Test Item Value Reference Range Interpretation Comments Magnesium Lvl (test code = Magnesium 2.0 1.8-2.4 Lvl) [facility]OhfrgcgSGXYYROSIEWP2661-20-86 11:03:00 Test Item Value Reference Range Interpretation Comments AGAP (test code = AGAP) 15.8 10.0-20.0 [facility] CenterLocdrbpSESTKSIFOWKV2015-82-55 11:03:00 Test Item Value Reference Range Interpretation Comments Phosphorus (test code = Phosphorus) 6.2 2.5-4.5 [facility] CenterIrglyhlZUFRXNVMELUM9670-81-91 11:03:00 Test Item Value Reference Range Interpretation Comments Albumin Lvl (test code = Albumin Lvl) 2.7 3.5-5.0 [facility] CenterByasotpRUAFJXGKVBMU2252-50-14 11:03:00 Test Item Value Reference Range Interpretation Comments Chloride Lvl (test code = Chloride Lvl) 108 95-109 [facility] CenterPmaehjfLDWOBSGWVXGA4725-78-80 11:03:00 Test Item Value Reference Range Interpretation Comments CO2 (test code = CO2) 20 24-32 [facility] CenterEpynecyAKKHKBWZLTRS3288-04-08 11:03:00 Test Item Value Reference Range Interpretation Comments Calcium Lvl (test code = Calcium Lvl) 7.4 8.5-10.5 [facility] CenterBjxzgfjENFPAOJNEQVY0125-88-81 11:03:00 Test Item Value Reference Range Interpretation Comments Sodium Lvl (test code = Sodium Lvl) 139 135-145 [facility] CenterOrdhcbfCCQEKJKHZTYB6972-02-42 11:03:00 Test Item Value Reference Range Interpretation Comments Creatinine Lvl (test code = Creatinine 9.27 0.50-1.40 Lvl) [facility] CenterUoguetiTRCBTLVMBGJR5495-79-87 11:03:00 Test Item Value Reference Range Interpretation Comments BUN (test code = BUN) 60 7-22 [facility] CenterBeybohzKRMKVPPMRMOD1653-76-79 11:03:00 Test Item Value Reference Range Interpretation Comments Potassium Lvl (test code = Potassium 4.8 3.5-5.1 Lvl) [facility] CenterDotbfhrQWCTKWHPECFT2029-66-82 11:03:00 Test Item Value Reference Range Interpretation Comments Glucose Lvl (test code = Glucose Lvl) 88 70-99 [facility] CenterWhzdwdtDSKCUYXWRUCP6379-75-07 11:03:00 Test Item Value Reference Range Interpretation Comments eGFR (test code = eGFR) 6 [facility]2017-06-14 11:03:00 Test Item Value Reference Range Interpretation Comments Magnesium Lvl (test code = Magnesium 2.0 1.8-2.4 Lvl) [facility] CenterKvlacbgLNUQGUKBYWAU6479-25-22 11:03:00 Test Item Value Reference Range Interpretation Comments AGAP (test code = AGAP) 15.8 10.0-20.0 [facility] CenterEfzkmheWJZNZXWFUVYZ8724-08-98 11:03:00 Test Item Value Reference Range Interpretation Comments Phosphorus (test code = Phosphorus) 6.2 2.5-4.5 [facility] CenterTdltewpFUAIJXRXMWRO2640-33-59 11:03:00 Test Item Value Reference Range Interpretation Comments Albumin Lvl (test code = Albumin Lvl) 2.7 3.5-5.0 [facility] CenterSzdqyjqHLEWWTANTILG4357-14-52 11:03:00 Test Item Value Reference Range Interpretation Comments Chloride Lvl (test code = Chloride Lvl) 108 95-109 [facility] CenterUrrqzlmIPHCXRZOSAJU3548-76-51 11:03:00 Test Item Value Reference Range Interpretation Comments CO2 (test code = CO2) 20 24-32 [facility] CenterMmgcuopLBORZAQFTHGY5618-36-12 11:03:00 Test Item Value Reference Range Interpretation Comments Calcium Lvl (test code = Calcium Lvl) 7.4 8.5-10.5 [facility] CenterWxxbljlXBNIUYACVUGP8946-07-06 11:03:00 Test Item Value Reference Range Interpretation Comments Sodium Lvl (test code = Sodium Lvl) 139 135-145 [facility] CenterYwwlcboWUZIHJNKBPDU9995-49-25 11:03:00 Test Item Value Reference Range Interpretation Comments Creatinine Lvl (test code = Creatinine 9.27 0.50-1.40 Lvl) [facility] CenterEfqwkgcUFIKJKRKYQMZ8016-96-80 11:03:00 Test Item Value Reference Range Interpretation Comments BUN (test code = BUN) 60 7-22 [facility] CenterDctraodSIZGAWGPLIEJ9910-95-75 11:03:00 Test Item Value Reference Range Interpretation Comments Potassium Lvl (test code = Potassium 4.8 3.5-5.1 Lvl) [facility] CenterIbmyutoQSALAMYLUVMT1132-13-91 11:03:00 Test Item Value Reference Range Interpretation Comments Glucose Lvl (test code = Glucose Lvl) 88 70-99 [facility] CenterBtnabbwYUUZLAYBYUGS9240-92-79 11:03:00 Test Item Value Reference Range Interpretation Comments eGFR (test code = eGFR) 6 [facility]CHEM JAPEF3280-04-41 11:03:00 Test Item Value Reference Range Interpretation Comments Magnesium Lvl (test code = Magnesium 2.0 1.8-2.4 Lvl) [facility] CenterSlnczdyNZSXNDNWWSOR0767-65-20 11:03:00 Test Item Value Reference Range Interpretation Comments AGAP (test code = AGAP) 15.8 10.0-20.0 [facility] CenterCvgrsovDYMOMGDCAPWO4369-26-88 11:03:00 Test Item Value Reference Range Interpretation Comments Phosphorus (test code = Phosphorus) 6.2 2.5-4.5 [facility] CenterOmlvnkaKPWQWFYYCKOW9297-56-79 11:03:00 Test Item Value Reference Range Interpretation Comments Albumin Lvl (test code = Albumin Lvl) 2.7 3.5-5.0 [facility] CenterLudzwmnWWLHIAAFBFLY3941-11-49 11:03:00 Test Item Value Reference Range Interpretation Comments Chloride Lvl (test code = Chloride Lvl) 108 95-109 [facility] CenterWfhxouvUSJJULITGSMU0627-03-51 11:03:00 Test Item Value Reference Range Interpretation Comments CO2 (test code = CO2) 20 24-32 [facility] CenterKhoijtvYHRVYHMPSSGW9854-75-01 11:03:00 Test Item Value Reference Range Interpretation Comments Calcium Lvl (test code = Calcium Lvl) 7.4 8.5-10.5 [facility] CenterYfkpdnzEZIUQRFNKLAA2044-28-58 11:03:00 Test Item Value Reference Range Interpretation Comments Sodium Lvl (test code = Sodium Lvl) 139 135-145 [facility] CenterRftchftYVDTBDNGFJEQ7112-76-69 11:03:00 Test Item Value Reference Range Interpretation Comments Creatinine Lvl (test code = Creatinine 9.27 0.50-1.40 Lvl) [facility] CenterNgcntzvDQRWWULKDDLV9440-03-44 11:03:00 Test Item Value Reference Range Interpretation Comments BUN (test code = BUN) 60 7-22 [facility] CenterWksfbdvTHKSWEVDLNXR8508-34-68 11:03:00 Test Item Value Reference Range Interpretation Comments Potassium Lvl (test code = Potassium 4.8 3.5-5.1 Lvl) [facility] CenterGeoycmrUQQEBCQINAVQ3768-92-51 11:03:00 Test Item Value Reference Range Interpretation Comments Glucose Lvl (test code = Glucose Lvl) 88 70-99 [facility] CenterVglwaseIYYXXINKZTXO3731-98-80 11:03:00 Test Item Value Reference Range Interpretation Comments eGFR (test code = eGFR) 6 [facility]CHEM YMWHM9076-57-28 11:03:00 Test Item Value Reference Range Interpretation Comments Magnesium Lvl (test code = Magnesium 2.0 1.8-2.4 Lvl) [facility] CenterZokroqwSBHRSBJLFDEE8463-87-20 11:03:00 Test Item Value Reference Range Interpretation Comments AGAP (test code = AGAP) 15.8 10.0-20.0 [facility] CenterZpctwplBSZAKADDJFAK3930-71-68 11:03:00 Test Item Value Reference Range Interpretation Comments Phosphorus (test code = Phosphorus) 6.2 2.5-4.5 [facility] CenterXadalrnHSXAFSZAVIPJ1663-36-58 11:03:00 Test Item Value Reference Range Interpretation Comments Albumin Lvl (test code = Albumin Lvl) 2.7 3.5-5.0 [facility] CenterMxsxeadEMNECCRLMBFU9615-85-86 11:03:00 Test Item Value Reference Range Interpretation Comments Chloride Lvl (test code = Chloride Lvl) 108 95-109 [facility] CenterSzznxmoJBEDMKOSQJWJ8706-25-16 11:03:00 Test Item Value Reference Range Interpretation Comments CO2 (test code = CO2) 20 24-32 [facility] CenterMsiovveVAVNTTNKPKFN7080-99-76 11:03:00 Test Item Value Reference Range Interpretation Comments Calcium Lvl (test code = Calcium Lvl) 7.4 8.5-10.5 [facility] CenterNmuedowJUXJAUFGUKNE8584-62-36 11:03:00 Test Item Value Reference Range Interpretation Comments Sodium Lvl (test code = Sodium Lvl) 139 135-145 [facility] CenterCiqdcigYUDNSGOHWSET1683-74-67 11:03:00 Test Item Value Reference Range Interpretation Comments Creatinine Lvl (test code = Creatinine 9.27 0.50-1.40 Lvl) [facility] CenterDvyvhbtYCLEDSQJHASE1892-03-12 11:03:00 Test Item Value Reference Range Interpretation Comments BUN (test code = BUN) 60 7-22 [facility] CenterIjqnvruLMQNEAEHHXCK0704-43-06 11:03:00 Test Item Value Reference Range Interpretation Comments Potassium Lvl (test code = Potassium 4.8 3.5-5.1 Lvl) [facility] CenterYrwqlhdRXMUAMHQUCLH6104-69-32 11:03:00 Test Item Value Reference Range Interpretation Comments Glucose Lvl (test code = Glucose Lvl) 88 70-99 [facility] CenterXslccpaNXMZPBQZPIKW5646-14-19 11:03:00 Test Item Value Reference Range Interpretation Comments eGFR (test code = eGFR) 6 [facility]CHEM PEVKO1892-62-90 11:03:00 Test Item Value Reference Range Interpretation Comments Magnesium Lvl (test code = Magnesium 2.0 1.8-2.4 Lvl) [facility] CenterXukzggaFNKCBGYICNWP4341-00-19 11:03:00 Test Item Value Reference Range Interpretation Comments AGAP (test code = AGAP) 15.8 10.0-20.0 [facility] CenterPoscpvxMTHEGIEMGPVI5476-13-69 11:03:00 Test Item Value Reference Range Interpretation Comments Phosphorus (test code = Phosphorus) 6.2 2.5-4.5 [facility] CenterEbvsclcHNCOIJUMPUVK7525-71-14 11:03:00 Test Item Value Reference Range Interpretation Comments Albumin Lvl (test code = Albumin Lvl) 2.7 3.5-5.0 [facility] CenterLmxpvntOOVAQBLDVMIY1910-88-59 11:03:00 Test Item Value Reference Range Interpretation Comments Chloride Lvl (test code = Chloride Lvl) 108 95-109 [facility] CenterJvxxfvkVCNUIDGUNWNP6802-43-72 11:03:00 Test Item Value Reference Range Interpretation Comments CO2 (test code = CO2) 20 24-32 [facility] CenterIfpatwdLRFVDFCIGTQQ4859-17-85 11:03:00 Test Item Value Reference Range Interpretation Comments Calcium Lvl (test code = Calcium Lvl) 7.4 8.5-10.5 [facility] CenterBgigmbbAXEUONQQVJFC1813-69-06 11:03:00 Test Item Value Reference Range Interpretation Comments Sodium Lvl (test code = Sodium Lvl) 139 135-145 [facility] CenterVatfbkcZRYQJTDECEHF6227-36-29 11:03:00 Test Item Value Reference Range Interpretation Comments Creatinine Lvl (test code = Creatinine 9.27 0.50-1.40 Lvl) [facility] CenterCyewsglPBFIHUGLIJKX7412-82-89 11:03:00 Test Item Value Reference Range Interpretation Comments BUN (test code = BUN) 60 7-22 [facility] CenterHchvjuyRISLQJFLRSOT7712-76-77 11:03:00 Test Item Value Reference Range Interpretation Comments Potassium Lvl (test code = Potassium 4.8 3.5-5.1 Lvl) [facility] CenterWqtnuunYAOMDZMVIXSK8465-90-19 11:03:00 Test Item Value Reference Range Interpretation Comments Glucose Lvl (test code = Glucose Lvl) 88 70-99 [facility] CenterFbkunfpGCFEFOFSOWYM4292-81-47 11:03:00 Test Item Value Reference Range Interpretation Comments eGFR (test code = eGFR) 6 [facility]CHEM KCOSU3615-29-98 11:03:00 Test Item Value Reference Range Interpretation Comments Magnesium Lvl (test code = Magnesium 2.0 1.8-2.4 Lvl) [facility] CenterYghvmfzCNZECAHLVDXF9022-13-76 11:03:00 Test Item Value Reference Range Interpretation Comments AGAP (test code = AGAP) 15.8 10.0-20.0 [facility] CenterKtsrbafCXCXHAEMUTYX3633-71-81 11:03:00 Test Item Value Reference Range Interpretation Comments Phosphorus (test code = Phosphorus) 6.2 2.5-4.5 [facility] CenterWvijhllTZTRGXJBATQG7268-71-44 11:03:00 Test Item Value Reference Range Interpretation Comments Albumin Lvl (test code = Albumin Lvl) 2.7 3.5-5.0 [facility] CenterIzkppwmKXZPDKYZJUQR1654-62-04 11:03:00 Test Item Value Reference Range Interpretation Comments Chloride Lvl (test code = Chloride Lvl) 108 95-109 [facility] CenterRpnipfzLVHKCAIUZRLS7049-55-79 11:03:00 Test Item Value Reference Range Interpretation Comments CO2 (test code = CO2) 20 24-32 [facility] CenterLuzqppoXRKVFWTCEJWM3962-40-14 11:03:00 Test Item Value Reference Range Interpretation Comments Calcium Lvl (test code = Calcium Lvl) 7.4 8.5-10.5 [facility] CenterRfotlhmVWCRLELBPLKD4398-20-96 11:03:00 Test Item Value Reference Range Interpretation Comments Sodium Lvl (test code = Sodium Lvl) 139 135-145 [facility] CenterQivrcbzHIFUYJHKJTMR1676-66-30 11:03:00 Test Item Value Reference Range Interpretation Comments Creatinine Lvl (test code = Creatinine 9.27 0.50-1.40 Lvl) [facility] CenterHhivonnETCVMMGIEIKT6009-08-12 11:03:00 Test Item Value Reference Range Interpretation Comments BUN (test code = BUN) 60 7-22 [facility] CenterMtjvdniQFEMPBPAHGCZ3170-74-07 11:03:00 Test Item Value Reference Range Interpretation Comments Potassium Lvl (test code = Potassium 4.8 3.5-5.1 Lvl) [facility] CenterCrqhdlyWKRAVKYTPPBR3029-42-69 11:03:00 Test Item Value Reference Range Interpretation Comments Glucose Lvl (test code = Glucose Lvl) 88 70-99 [facility] CenterSbyxhytHSFQIKBQDVKY2819-53-62 11:03:00 Test Item Value Reference Range Interpretation Comments eGFR (test code = eGFR) 6 [facility]2017-06-13 18:59:00 Test Item Value Reference Range Interpretation Comments U Creatinine (test code = U Creatinine) 76.70 [facility]2017-06-13 18:59:00 Test Item Value Reference Range Interpretation Comments U Protein (test code = U Protein) 360.8 [facility]2017-06-13 18:59:00 Test Item Value Reference Range Interpretation Comments U Eos (test code = U None Seen (03/11/17 1:59 Eos) PM) [facility]2017-06-13 18:59:00 Test Item Value Reference Range Interpretation Comments U Sodium (test code = U Sodium) 68 [facility]2017-06-13 18:59:00 Test Item Value Reference Range Interpretation Comments U Prot/Creat (test code = U Prot/Creat) 4.7 [facility]2017-06-13 18:59:00 Test Item Value Reference Range Interpretation Comments U Creatinine (test code = U Creatinine) 76.70 [facility]2017-06-13 18:59:00 Test Item Value Reference Range Interpretation Comments U Protein (test code = U Protein) 360.8 [facility]2017-06-13 18:59:00 Test Item Value Reference Range Interpretation Comments U Eos (test code = U None Seen (03/11/17 1:59 Eos) PM) [facility]2017-06-13 18:59:00 Test Item Value Reference Range Interpretation Comments U Sodium (test code = U Sodium) 68 [facility]2017-06-13 18:59:00 Test Item Value Reference Range Interpretation Comments U Prot/Creat (test code = U Prot/Creat) 4.7 [facility] HospitalannURINE [id number] 18:59:00 Test Item Value Reference Range Interpretation Comments U Creatinine (test code = U Creatinine) 76.70 [facility] [id number] 18:59:00 Test Item Value Reference Range Interpretation Comments U Protein (test code = U Protein) 360.8 [facility] [id number] 18:59:00 Test Item Value Reference Range Interpretation Comments U Eos (test code = U None Seen (03/11/17 1:59 Eos) PM) [facility] [id number] 18:59:00 Test Item Value Reference Range Interpretation Comments U Sodium (test code = U Sodium) 68 [facility] [id number] 18:59:00 Test Item Value Reference Range Interpretation Comments U Prot/Creat (test code = U Prot/Creat) 4.7 [facility] [id number] 18:59:00 Test Item Value Reference Range Interpretation Comments U Creatinine (test code = U Creatinine) 76.70 [facility] [id number] 18:59:00 Test Item Value Reference Range Interpretation Comments U Protein (test code = U Protein) 360.8 [facility] [id number] 18:59:00 Test Item Value Reference Range Interpretation Comments U Eos (test code = U None Seen (03/11/17 1:59 Eos) PM) [facility] [id number] 18:59:00 Test Item Value Reference Range Interpretation Comments U Sodium (test code = U Sodium) 68 [facility] [id number] 18:59:00 Test Item Value Reference Range Interpretation Comments U Prot/Creat (test code = U Prot/Creat) 4.7 [facility] [id number] 18:59:00 Test Item Value Reference Range Interpretation Comments U Creatinine (test code = U Creatinine) 76.70 [facility] [id number] 18:59:00 Test Item Value Reference Range Interpretation Comments U Protein (test code = U Protein) 360.8 [facility] [id number] 18:59:00 Test Item Value Reference Range Interpretation Comments U Eos (test code = U None Seen (03/11/17 1:59 Eos) PM) [facility]2017-06-13 18:59:00 Test Item Value Reference Range Interpretation Comments U Sodium (test code = U Sodium) 68 [facility]2017-06-13 18:59:00 Test Item Value Reference Range Interpretation Comments U Prot/Creat (test code = U Prot/Creat) 4.7 [facility]2017-06-13 18:59:00 Test Item Value Reference Range Interpretation Comments U Creatinine (test code = U Creatinine) 76.70 [facility]2017-06-13 18:59:00 Test Item Value Reference Range Interpretation Comments U Protein (test code = U Protein) 360.8 [facility]2017-06-13 18:59:00 Test Item Value Reference Range Interpretation Comments U Eos (test code = U None Seen (03/11/17 1:59 Eos) PM) [facility]2017-06-13 18:59:00 Test Item Value Reference Range Interpretation Comments U Sodium (test code = U Sodium) 68 [facility]2017-06-13 18:59:00 Test Item Value Reference Range Interpretation Comments U Prot/Creat (test code = U Prot/Creat) 4.7 [facility]2017-06-13 09:56:00 Test Item Value Reference Range Interpretation Comments A/G Ratio (test code = A/G Ratio) 0.6 0.7-1.6 [facility]2017-06-13 09:56:00 Test Item Value Reference Range Interpretation Comments AGAP (test code = AGAP) 16.5 10.0-20.0 [facility]2017-06-13 09:56:00 Test Item Value Reference Range Interpretation Comments B/C Ratio (test code = B/C Ratio) 6 6-25 [facility]2017-06-13 09:56:00 Test Item Value Reference Range Interpretation Comments Globulin (test code = Globulin) 4.6 2.7-4.2 [facility]2017-06-13 09:56:00 Test Item Value Reference Range Interpretation Comments Bili Total (test code = Bili Total) 0.3 0.2-1.3 [facility]2017-06-13 09:56:00 Test Item Value Reference Range Interpretation Comments Alk Phos (test code = Alk Phos) 123 39-136 [facility]2017-06-13 09:56:00 Test Item Value Reference Range Interpretation Comments AST (test code = AST) 12 See_Comment [Auto mated message] The system which ge nerated this result transmit cruz reference range : <=37. The reference range was not used to interpr et this result as gee l/abnormal. [facility]2017-06-13 09:56:00 Test Item Value Reference Range Interpretation Comments Total Protein (test code = Total 7.3 6.4-8.4 Protein) [facility]2017-06-13 09:56:00 Test Item Value Reference Range Interpretation Comments Albumin Lvl (test code = Albumin Lvl) 2.7 3.5-5.0 [facility]2017-06-13 09:56:00 Test Item Value Reference Range Interpretation Comments ALT (test code = ALT) 17 See_Comment [Auto mated message] The system which ge nerated this result transmit cruz reference range : <=65. The reference range was not used to interpr et this result as gee l/abnormal. [facility]2017-06-13 09:56:00 Test Item Value Reference Range Interpretation Comments CO2 (test code = CO2) 21 24-32 [facility]2017-06-13 09:56:00 Test Item Value Reference Range Interpretation Comments Calcium Lvl (test code = Calcium Lvl) 7.5 8.5-10.5 [facility]2017-06-13 09:56:00 Test Item Value Reference Range Interpretation Comments Potassium Lvl (test code = Potassium 4.5 3.5-5.1 Lvl) [facility]2017-06-13 09:56:00 Test Item Value Reference Range Interpretation Comments Creatinine Lvl (test code = Creatinine 9.18 0.50-1.40 Lvl) [facility]2017-06-13 09:56:00 Test Item Value Reference Range Interpretation Comments Sodium Lvl (test code = Sodium Lvl) 141 135-145 [facility]2017-06-13 09:56:00 Test Item Value Reference Range Interpretation Comments BUN (test code = BUN) 59 7-22 [facility]2017-06-13 09:56:00 Test Item Value Reference Range Interpretation Comments Chloride Lvl (test code = Chloride Lvl) 108 95-109 [facility]2017-06-13 09:56:00 Test Item Value Reference Range Interpretation Comments eGFR (test code = eGFR) 6 [facility]2017-06-13 09:56:00 Test Item Value Reference Range Interpretation Comments Glucose Lvl (test code = Glucose Lvl) 86 70-99 [facility]2017-06-13 09:56:00 Test Item Value Reference Range Interpretation Comments Phosphorus (test code = Phosphorus) 5.9 2.5-4.5 [facility]2017-06-13 09:56:00 Test Item Value Reference Range Interpretation Comments Magnesium Lvl (test code = Magnesium 2.0 1.8-2.4 Lvl) [facility]aoKWHMXVPJZP5738-90-87 09:56:00 Test Item Value Reference Range Interpretation Comments Platelet (test code = Platelet) 225 133-450 [facility]FtgicniZDJAADMNMQ9899-48-68 09:56:00 Test Item Value Reference Range Interpretation Comments MPV (test code = MPV) 10.2 7.4-10.4 [facility]UczzfquKOOCOLUKVC3863-49-52 09:56:00 Test Item Value Reference Range Interpretation Comments MCHC (test code = MCHC) 32.5 32.0-36.0 [facility]TntwrinPBWRANREJK4505-14-44 09:56:00 Test Item Value Reference Range Interpretation Comments RDW (test code = RDW) 12.9 11.5-14.5 [facility]KsrxzriYHZHIIKGWA4001-21-71 09:56:00 Test Item Value Reference Range Interpretation Comments MCV (test code = MCV) 89.7 80.0-94.0 [facility]FebctdtDOEEKBJLYQ7721-78-33 09:56:00 Test Item Value Reference Range Interpretation Comments MCH (test code = MCH) 29.1 pg 27.0-31.0 [facility]PogjvrlOFGUXIWKRO7044-69-72 09:56:00 Test Item Value Reference Range Interpretation Comments Hct (test code = Hct) 37.0 42.0-54.0 [facility]WetfleeHWLSDVYOUO4456-61-24 09:56:00 Test Item Value Reference Range Interpretation Comments RBC (test code = RBC) 4.12 4.70-6.10 [facility]LpsyjqbHKKAWSLITL6826-82-27 09:56:00 Test Item Value Reference Range Interpretation Comments Hgb (test code = Hgb) 12.0 14.0-18.0 [facility] TexasQydsuqzJRASCPHFOT2780-47-29 09:56:00 Test Item Value Reference Range Interpretation Comments WBC (test code = WBC) 8.8 3.7-10.4 [facility]TlmpjagKTJDRBPSCZ9461-33-03 09:56:00 Test Item Value Reference Range Interpretation Comments Monocytes (test code = Monocytes) 9.7 2.0-12.0 [facility]ZsitbuvJUKAAVHOXA2520-21-80 09:56:00 Test Item Value Reference Range Interpretation Comments Eosinophils (test code = 2.8 See_Comment [A utomated message] The Eosinophils) system which ge nerated this result tra nsmitted reference range : <=4.0. The reference r jillian was not used to int erpret this result as normal/abnormal . [facility] TexasJeopbnqEQBZSNNGQX3775-14-38 09:56:00 Test Item Value Reference Range Interpretation Comments Segs (test code = Segs) 62.8 45.0-75.0 [facility]NnhcxphVYIPPJZWGA8254-62-10 09:56:00 Test Item Value Reference Range Interpretation Comments Lymphocytes (test code = Lymphocytes) 23.8 20.0-40.0 [facility]SpgclhpCYPDHKPEBZ8486-70-41 09:56:00 Test Item Value Reference Range Interpretation Comments Basophils # (test code 0.1 See_Comment [Aut omated message] The = Basophils #) system which generated this result tra nsmitted reference range : <=0.2. The reference r jillian was not used to int erpret this result as normal/abnormal . [facility] TexasJvbpbtcCCFGMCZJRM1976-26-47 09:56:00 Test Item Value Reference Range Interpretation Comments Lymphocytes # (test code = Lymphocytes 2.1 1.0-5.5 #) [facility]LxrwmahXXJLPOXPDQ8639-24-22 09:56:00 Test Item Value Reference Range Interpretation Comments Basophils (test code = 0.9 See_Comment [Aut omated message] The Basophils) system which ge nerated this result tra nsmitted reference range : <=1.0. The reference r jillian was not used to int erpret this result as normal/abnormal . [facility] TexasSyarfunRSNLUDWXZR5596-60-15 09:56:00 Test Item Value Reference Range Interpretation Comments Eosinophils # (test code 0.2 See_Comment [A utomated message] The = Eosinophils #) system whic h generated this result tra nsmitted reference range : <=0.5. The reference r jillian was not used to int erpret this result as normal/abnormal . [facility]VuxzyzqKIKPRIGWDW2404-15-93 09:56:00 Test Item Value Reference Range Interpretation Comments Segs-Bands # (test code = Segs-Bands #) 5.5 1.5-8.1 [facility] TexasQudiwbtFGFAZEYYHG4923-74-21 09:56:00 Test Item Value Reference Range Interpretation Comments Monocytes # (test code 0.9 See_Comment [Aut omated message] The = Monocytes #) system which generated this result tra nsmitted reference range : <=0.8. The reference r jillian was not used to int erpret this result as normal/abnormal . [facility]2017-06-13 09:56:00 Test Item Value Reference Range Interpretation Comments Ca Norm WB (test code = Ca Norm WB) 0.93 1.05-1.25 [facility]2017-06-13 09:56:00 Test Item Value Reference Range Interpretation Comments Ca Ion WB (test code = Ca Ion WB) 0.97 1.05-1.25 [facility]2017-06-13 09:56:00 Test Item Value Reference Range Interpretation Comments A/G Ratio (test code = A/G Ratio) 0.6 0.7-1.6 [facility]2017-06-13 09:56:00 Test Item Value Reference Range Interpretation Comments AGAP (test code = AGAP) 16.5 10.0-20.0 [facility]2017-06-13 09:56:00 Test Item Value Reference Range Interpretation Comments B/C Ratio (test code = B/C Ratio) 6 6-25 [facility]2017-06-13 09:56:00 Test Item Value Reference Range Interpretation Comments Globulin (test code = Globulin) 4.6 2.7-4.2 [facility]2017-06-13 09:56:00 Test Item Value Reference Range Interpretation Comments Bili Total (test code = Bili Total) 0.3 0.2-1.3 [facility]2017-06-13 09:56:00 Test Item Value Reference Range Interpretation Comments Alk Phos (test code = Alk Phos) 123 39-136 [facility]2017-06-13 09:56:00 Test Item Value Reference Range Interpretation Comments AST (test code = AST) 12 See_Comment [Auto mated message] The system which ge nerated this result transmit cruz reference range : <=37. The reference range was not used to interpr et this result as gee l/abnormal. [facility]2017-06-13 09:56:00 Test Item Value Reference Range Interpretation Comments Total Protein (test code = Total 7.3 6.4-8.4 Protein) [facility]2017-06-13 09:56:00 Test Item Value Reference Range Interpretation Comments Albumin Lvl (test code = Albumin Lvl) 2.7 3.5-5.0 [facility]2017-06-13 09:56:00 Test Item Value Reference Range Interpretation Comments ALT (test code = ALT) 17 See_Comment [Auto mated message] The system which ge nerated this result transmit cruz reference range : <=65. The reference range was not used to interpr et this result as gee l/abnormal. [facility]2017-06-13 09:56:00 Test Item Value Reference Range Interpretation Comments CO2 (test code = CO2) 21 24-32 [place] 998087-06-13 09:56:00 Test Item Value Reference Range Interpretation Comments Calcium Lvl (test code = Calcium Lvl) 7.5 8.5-10.5 [facility]2017-06-13 09:56:00 Test Item Value Reference Range Interpretation Comments Potassium Lvl (test code = Potassium 4.5 3.5-5.1 Lvl) [facility]2017-06-13 09:56:00 Test Item Value Reference Range Interpretation Comments Creatinine Lvl (test code = Creatinine 9.18 0.50-1.40 Lvl) [facility]2017-06-13 09:56:00 Test Item Value Reference Range Interpretation Comments Sodium Lvl (test code = Sodium Lvl) 141 135-145 [facility]2017-06-13 09:56:00 Test Item Value Reference Range Interpretation Comments BUN (test code = BUN) 59 7-22 [facility]2017-06-13 09:56:00 Test Item Value Reference Range Interpretation Comments Chloride Lvl (test code = Chloride Lvl) 108 95-109 [facility]2017-06-13 09:56:00 Test Item Value Reference Range Interpretation Comments eGFR (test code = eGFR) 6 [facility]2017-06-13 09:56:00 Test Item Value Reference Range Interpretation Comments Glucose Lvl (test code = Glucose Lvl) 86 70-99 [facility]2017-06-13 09:56:00 Test Item Value Reference Range Interpretation Comments Phosphorus (test code = Phosphorus) 5.9 2.5-4.5 [facility]2017-06-13 09:56:00 Test Item Value Reference Range Interpretation Comments Magnesium Lvl (test code = Magnesium 2.0 1.8-2.4 Lvl) [facility]FiyleskAXFAYZQKBA7863-10-83 09:56:00 Test Item Value Reference Range Interpretation Comments Platelet (test code = Platelet) 225 133-450 [facility]MykxnvfGYEXOKZCYY0853-61-11 09:56:00 Test Item Value Reference Range Interpretation Comments MPV (test code = MPV) 10.2 7.4-10.4 [facility] TexasRgpprzxDGCGBHGQLU0238-73-45 09:56:00 Test Item Value Reference Range Interpretation Comments MCHC (test code = MCHC) 32.5 32.0-36.0 [facility] TexasUrxeowwCUSADAXNUO4871-70-10 09:56:00 Test Item Value Reference Range Interpretation Comments RDW (test code = RDW) 12.9 11.5-14.5 [facility] TexasInovxlrSKKHPVYQGQ5774-01-35 09:56:00 Test Item Value Reference Range Interpretation Comments MCV (test code = MCV) 89.7 80.0-94.0 [facility] TexasSrrqhqsSBZPJIMMKG7883-50-36 09:56:00 Test Item Value Reference Range Interpretation Comments MCH (test code = MCH) 29.1 pg 27.0-31.0 [facility]JwmorsgEOIJJVIBWM6638-39-46 09:56:00 Test Item Value Reference Range Interpretation Comments Hct (test code = Hct) 37.0 42.0-54.0 [facility] [place]IdpekhjODEPEXSXZS1119-58-17 09:56:00 Test Item Value Reference Range Interpretation Comments RBC (test code = RBC) 4.12 4.70-6.10 [facility]FqoqlaoDFFTODTZUB7000-12-35 09:56:00 Test Item Value Reference Range Interpretation Comments Hgb (test code = Hgb) 12.0 14.0-18.0 [facility]EriehtqZDSHJWRCIV9862-34-38 09:56:00 Test Item Value Reference Range Interpretation Comments WBC (test code = WBC) 8.8 3.7-10.4 [facility] TexasZpuoogrLNWZDJENDJ6323-02-67 09:56:00 Test Item Value Reference Range Interpretation Comments Monocytes (test code = Monocytes) 9.7 2.0-12.0 [facility]VmaadvtVKJWSUNFAE5065-44-67 09:56:00 Test Item Value Reference Range Interpretation Comments Eosinophils (test code = 2.8 See_Comment [A utomated message] The Eosinophils) system which ge nerated this result tra nsmitted reference range : <=4.0. The reference r jillian was not used to int erpret this result as normal/abnormal . [facility] TexasTklbbeaFXUJWPAPQM7098-60-41 09:56:00 Test Item Value Reference Range Interpretation Comments Segs (test code = Segs) 62.8 45.0-75.0 [facility] [place]YsggvreGABDSNNORQ6343-46-16 09:56:00 Test Item Value Reference Range Interpretation Comments Lymphocytes (test code = Lymphocytes) 23.8 20.0-40.0 [facility] TexasDwwxmoiMNDHPLLBZG6186-54-40 09:56:00 Test Item Value Reference Range Interpretation Comments Basophils # (test code 0.1 See_Comment [Aut omated message] The = Basophils #) system which generated this result tra nsmitted reference range : <=0.2. The reference r jillian was not used to int erpret this result as normal/abnormal . [facility] TexasLdydkmoURTVQIDLJU4640-67-53 09:56:00 Test Item Value Reference Range Interpretation Comments Lymphocytes # (test code = Lymphocytes 2.1 1.0-5.5 #) [facility]YdqiozyTAPKJRBBZO7339-30-86 09:56:00 Test Item Value Reference Range Interpretation Comments Basophils (test code = 0.9 See_Comment [Aut omated message] The Basophils) system which ge nerated this result tra nsmitted reference range : <=1.0. The reference r jillian was not used to int erpret this result as normal/abnormal . [facility]NdkupdxRKIXJNUYSZ6428-57-72 09:56:00 Test Item Value Reference Range Interpretation Comments Eosinophils # (test code 0.2 See_Comment [A utomated message] The = Eosinophils #) system whic h generated this result tra nsmitted reference range : <=0.5. The reference r jillian was not used to int erpret this result as normal/abnormal . [facility]BibxrcyDEWEZZDISN9223-35-37 09:56:00 Test Item Value Reference Range Interpretation Comments Segs-Bands # (test code = Segs-Bands #) 5.5 1.5-8.1 [facility] TexasBsxqzuyNAJSGRWWYS2045-00-28 09:56:00 Test Item Value Reference Range Interpretation Comments Monocytes # (test code 0.9 See_Comment [Aut omated message] The = Monocytes #) system which generated this result tra nsmitted reference range : <=0.8. The reference r jillian was not used to int erpret this result as normal/abnormal . [facility]2017-06-13 09:56:00 Test Item Value Reference Range Interpretation Comments Ca Norm WB (test code = Ca Norm WB) 0.93 1.05-1.25 [facility]2017-06-13 09:56:00 Test Item Value Reference Range Interpretation Comments Ca Ion WB (test code = Ca Ion WB) 0.97 1.05-1.25 [facility]2017-06-13 09:56:00 Test Item Value Reference Range Interpretation Comments A/G Ratio (test code = A/G Ratio) 0.6 0.7-1.6 [facility]2017-06-13 09:56:00 Test Item Value Reference Range Interpretation Comments AGAP (test code = AGAP) 16.5 10.0-20.0 [facility]2017-06-13 09:56:00 Test Item Value Reference Range Interpretation Comments B/C Ratio (test code = B/C Ratio) 6 6-25 [facility]2017-06-13 09:56:00 Test Item Value Reference Range Interpretation Comments Globulin (test code = Globulin) 4.6 2.7-4.2 [facility]2017-06-13 09:56:00 Test Item Value Reference Range Interpretation Comments Bili Total (test code = Bili Total) 0.3 0.2-1.3 [facility]2017-06-13 09:56:00 Test Item Value Reference Range Interpretation Comments Alk Phos (test code = Alk Phos) 123 39-136 [facility]2017-06-13 09:56:00 Test Item Value Reference Range Interpretation Comments AST (test code = AST) 12 See_Comment [Auto mated message] The system which ge nerated this result transmit cruz reference range : <=37. The reference range was not used to interpr et this result as gee l/abnormal. [facility]2017-06-13 09:56:00 Test Item Value Reference Range Interpretation Comments Total Protein (test code = Total 7.3 6.4-8.4 Protein) [facility]2017-06-13 09:56:00 Test Item Value Reference Range Interpretation Comments Albumin Lvl (test code = Albumin Lvl) 2.7 3.5-5.0 [facility]2017-06-13 09:56:00 Test Item Value Reference Range Interpretation Comments ALT (test code = ALT) 17 See_Comment [Auto mated message] The system which ge nerated this result transmit cruz reference range : <=65. The reference range was not used to interpr et this result as gee l/abnormal. [facility]2017-06-13 09:56:00 Test Item Value Reference Range Interpretation Comments CO2 (test code = CO2) 21 24-32 [facility]2017-06-13 09:56:00 Test Item Value Reference Range Interpretation Comments Calcium Lvl (test code = Calcium Lvl) 7.5 8.5-10.5 [facility]2017-06-13 09:56:00 Test Item Value Reference Range Interpretation Comments Potassium Lvl (test code = Potassium 4.5 3.5-5.1 Lvl) [facility]2017-06-13 09:56:00 Test Item Value Reference Range Interpretation Comments Creatinine Lvl (test code = Creatinine 9.18 0.50-1.40 Lvl) [facility]2017-06-13 09:56:00 Test Item Value Reference Range Interpretation Comments Sodium Lvl (test code = Sodium Lvl) 141 135-145 [facility]2017-06-13 09:56:00 Test Item Value Reference Range Interpretation Comments BUN (test code = BUN) 59 7-22 [facility]2017-06-13 09:56:00 Test Item Value Reference Range Interpretation Comments Chloride Lvl (test code = Chloride Lvl) 108 95-109 [facility]2017-06-13 09:56:00 Test Item Value Reference Range Interpretation Comments eGFR (test code = eGFR) 6 [facility]2017-06-13 09:56:00 Test Item Value Reference Range Interpretation Comments Glucose Lvl (test code = Glucose Lvl) 86 70-99 [facility]2017-06-13 09:56:00 Test Item Value Reference Range Interpretation Comments Phosphorus (test code = Phosphorus) 5.9 2.5-4.5 [facility]2017-06-13 09:56:00 Test Item Value Reference Range Interpretation Comments Magnesium Lvl (test code = Magnesium 2.0 1.8-2.4 Lvl) [facility]LxkshpyRFSTVSSOMT1933-37-39 09:56:00 Test Item Value Reference Range Interpretation Comments Platelet (test code = Platelet) 225 133-450 [facility]ZdxxouuHFXCVXNKZK7854-38-40 09:56:00 Test Item Value Reference Range Interpretation Comments MPV (test code = MPV) 10.2 7.4-10.4 [facility]JnfrmalTWHYUMAYHS9569-15-77 09:56:00 Test Item Value Reference Range Interpretation Comments MCHC (test code = MCHC) 32.5 32.0-36.0 [facility]HkqzyreYJFZRWQITU3863-10-87 09:56:00 Test Item Value Reference Range Interpretation Comments RDW (test code = RDW) 12.9 11.5-14.5 [facility]VtwvpriBQAXJKJEKL2665-59-41 09:56:00 Test Item Value Reference Range Interpretation Comments MCV (test code = MCV) 89.7 80.0-94.0 [facility]OeocbikSSUKXJPMGY8900-96-91 09:56:00 Test Item Value Reference Range Interpretation Comments MCH (test code = MCH) 29.1 pg 27.0-31.0 [facility] TexasLkefzwlLVXZKCHQDG9666-79-82 09:56:00 Test Item Value Reference Range Interpretation Comments Hct (test code = Hct) 37.0 42.0-54.0 [facility] TexasMqhlapnTOOMMUCDOC9176-55-08 09:56:00 Test Item Value Reference Range Interpretation Comments RBC (test code = RBC) 4.12 4.70-6.10 [facility]ZtxuflsURBRLKEEXL4860-20-99 09:56:00 Test Item Value Reference Range Interpretation Comments Hgb (test code = Hgb) 12.0 14.0-18.0 [facility]VpxmueqDAJYETLXFU5193-80-02 09:56:00 Test Item Value Reference Range Interpretation Comments WBC (test code = WBC) 8.8 3.7-10.4 [facility] TexasFbcucybHOFKXVHBHY0455-07-73 09:56:00 Test Item Value Reference Range Interpretation Comments Monocytes (test code = Monocytes) 9.7 2.0-12.0 [facility]JqchnqlKPHFOIIUFT5009-46-39 09:56:00 Test Item Value Reference Range Interpretation Comments Eosinophils (test code = 2.8 See_Comment [A utomated message] The Eosinophils) system which ge nerated this result tra nsmitted reference range : <=4.0. The reference r jillian was not used to int erpret this result as normal/abnormal . [facility]JmqljodBNUORMSNKE9202-76-05 09:56:00 Test Item Value Reference Range Interpretation Comments Segs (test code = Segs) 62.8 45.0-75.0 [facility] TexasUhnqmruGVHEAGJADL9737-74-27 09:56:00 Test Item Value Reference Range Interpretation Comments Lymphocytes (test code = Lymphocytes) 23.8 20.0-40.0 [facility] [place]EipsacgJPXWCRXHVI6514-83-08 09:56:00 Test Item Value Reference Range Interpretation Comments Basophils # (test code 0.1 See_Comment [Aut omated message] The = Basophils #) system which generated this result tra nsmitted reference range : <=0.2. The reference r jillian was not used to int erpret this result as normal/abnormal . [facility] TexasDlmlvgvVYAGJLBKXG1485-13-19 09:56:00 Test Item Value Reference Range Interpretation Comments Lymphocytes # (test code = Lymphocytes 2.1 1.0-5.5 #) [facility] [place]AyodrntJSQBEJXMNR1937-53-05 09:56:00 Test Item Value Reference Range Interpretation Comments Basophils (test code = 0.9 See_Comment [Aut omated message] The Basophils) system which ge nerated this result tra nsmitted reference range : <=1.0. The reference r jillian was not used to int erpret this result as normal/abnormal . [facility] TexasVoohktjILRWORZEPH4569-97-19 09:56:00 Test Item Value Reference Range Interpretation Comments Eosinophils # (test code 0.2 See_Comment [A utomated message] The = Eosinophils #) system whic h generated this result tra nsmitted reference range : <=0.5. The reference r jillian was not used to int erpret this result as normal/abnormal . [facility] TexasJnzebraKGDBERXYCI2849-86-01 09:56:00 Test Item Value Reference Range Interpretation Comments Segs-Bands # (test code = Segs-Bands #) 5.5 1.5-8.1 [facility] [place]IsibybjDKMECWHCZM1956-21-53 09:56:00 Test Item Value Reference Range Interpretation Comments Monocytes # (test code 0.9 See_Comment [Aut omated message] The = Monocytes #) system which generated this result tra nsmitted reference range : <=0.8. The reference r jillian was not used to int erpret this result as normal/abnormal . [facility]2017-06-13 09:56:00 Test Item Value Reference Range Interpretation Comments Ca Norm WB (test code = Ca Norm WB) 0.93 1.05-1.25 [facility]2017-06-13 09:56:00 Test Item Value Reference Range Interpretation Comments Ca Ion WB (test code = Ca Ion WB) 0.97 1.05-1.25 [facility] [id number] 09:56:00 Test Item Value Reference Range Interpretation Comments A/G Ratio (test code = A/G Ratio) 0.6 0.7-1.6 [facility] [id number] 09:56:00 Test Item Value Reference Range Interpretation Comments AGAP (test code = AGAP) 16.5 10.0-20.0 [facility]2017-06-13 09:56:00 Test Item Value Reference Range Interpretation Comments B/C Ratio (test code = B/C Ratio) 6 6-25 [facility] [id number] 09:56:00 Test Item Value Reference Range Interpretation Comments Globulin (test code = Globulin) 4.6 2.7-4.2 [facility]2017-06-13 09:56:00 Test Item Value Reference Range Interpretation Comments Bili Total (test code = Bili Total) 0.3 0.2-1.3 [facility]2017-06-13 09:56:00 Test Item Value Reference Range Interpretation Comments Alk Phos (test code = Alk Phos) 123 39-136 [facility]2017-06-13 09:56:00 Test Item Value Reference Range Interpretation Comments AST (test code = AST) 12 <=37 [facility]2017-06-13 09:56:00 Test Item Value Reference Range Interpretation Comments Total Protein (test code = Total 7.3 6.4-8.4 Protein) [facility]2017-06-13 09:56:00 Test Item Value Reference Range Interpretation Comments Albumin Lvl (test code = Albumin Lvl) 2.7 3.5-5.0 [facility]2017-06-13 09:56:00 Test Item Value Reference Range Interpretation Comments ALT (test code = ALT) 17 <=65 [facility]2017-06-13 09:56:00 Test Item Value Reference Range Interpretation Comments CO2 (test code = CO2) 21 24-32 [facility]2017-06-13 09:56:00 Test Item Value Reference Range Interpretation Comments Calcium Lvl (test code = Calcium Lvl) 7.5 8.5-10.5 [facility]2017-06-13 09:56:00 Test Item Value Reference Range Interpretation Comments Potassium Lvl (test code = Potassium 4.5 3.5-5.1 Lvl) [facility]2017-06-13 09:56:00 Test Item Value Reference Range Interpretation Comments Creatinine Lvl (test code = Creatinine 9.18 0.50-1.40 Lvl) [facility]2017-06-13 09:56:00 Test Item Value Reference Range Interpretation Comments Sodium Lvl (test code = Sodium Lvl) 141 135-145 [facility]2017-06-13 09:56:00 Test Item Value Reference Range Interpretation Comments BUN (test code = BUN) 59 7-22 [facility]2017-06-13 09:56:00 Test Item Value Reference Range Interpretation Comments Chloride Lvl (test code = Chloride Lvl) 108 95-109 [facility]2017-06-13 09:56:00 Test Item Value Reference Range Interpretation Comments eGFR (test code = eGFR) 6 [facility]2017-06-13 09:56:00 Test Item Value Reference Range Interpretation Comments Glucose Lvl (test code = Glucose Lvl) 86 70-99 [facility]2017-06-13 09:56:00 Test Item Value Reference Range Interpretation Comments Phosphorus (test code = Phosphorus) 5.9 2.5-4.5 [facility]2017-06-13 09:56:00 Test Item Value Reference Range Interpretation Comments Magnesium Lvl (test code = Magnesium 2.0 1.8-2.4 Lvl) [facility]ukDQELVGYOBW1301-28-59 09:56:00 Test Item Value Reference Range Interpretation Comments Platelet (test code = Platelet) 225 133-450 [facility] TexasWwihcaqUVNDTKWBRS6041-05-73 09:56:00 Test Item Value Reference Range Interpretation Comments MPV (test code = MPV) 10.2 7.4-10.4 [facility] TexasBxterlnRNKGMCIARM5481-13-60 09:56:00 Test Item Value Reference Range Interpretation Comments MCHC (test code = MCHC) 32.5 32.0-36.0 [facility] TexasFzgrnsnGNWKEITSKH0550-55-76 09:56:00 Test Item Value Reference Range Interpretation Comments RDW (test code = RDW) 12.9 11.5-14.5 [facility] TexasQyncrcdQUTZLFGRAW7885-54-91 09:56:00 Test Item Value Reference Range Interpretation Comments MCV (test code = MCV) 89.7 80.0-94.0 [facility] TexasUlayfxaTPXHUACNXB3779-89-38 09:56:00 Test Item Value Reference Range Interpretation Comments MCH (test code = MCH) 29.1 pg 27.0-31.0 [facility] TexasIihtnczACAJBXFBRR8590-15-91 09:56:00 Test Item Value Reference Range Interpretation Comments Hct (test code = Hct) 37.0 42.0-54.0 [facility] TexasRwtezioYDSESBYHZZ9454-01-91 09:56:00 Test Item Value Reference Range Interpretation Comments RBC (test code = RBC) 4.12 4.70-6.10 [facility] TexasLofanllLXNQDDCPDR9747-89-92 09:56:00 Test Item Value Reference Range Interpretation Comments Hgb (test code = Hgb) 12.0 14.0-18.0 [facility] TexasZclmgqdHOTPJCXFXZ1490-57-55 09:56:00 Test Item Value Reference Range Interpretation Comments WBC (test code = WBC) 8.8 3.7-10.4 [facility]YsdjdkyDSRGFBSPJS9883-59-40 09:56:00 Test Item Value Reference Range Interpretation Comments Monocytes (test code = Monocytes) 9.7 2.0-12.0 [facility] TexasRnmwsbtCURIYEEQWT7837-29-01 09:56:00 Test Item Value Reference Range Interpretation Comments Eosinophils (test code = Eosinophils) 2.8 <=4.0 [facility] TexasOzyjdasSIZFHRBDAT3438-67-58 09:56:00 Test Item Value Reference Range Interpretation Comments Segs (test code = Segs) 62.8 45.0-75.0 [facility] TexasKopnnvhFUWJZEXIZM3941-38-96 09:56:00 Test Item Value Reference Range Interpretation Comments Lymphocytes (test code = Lymphocytes) 23.8 20.0-40.0 [facility] TexasSosghewAZHCODTKEN3282-10-70 09:56:00 Test Item Value Reference Range Interpretation Comments Basophils # (test code = Basophils #) 0.1 <=0.2 [facility] TexasIphekgyEKYNKGIRNI0843-65-24 09:56:00 Test Item Value Reference Range Interpretation Comments Lymphocytes # (test code = Lymphocytes 2.1 1.0-5.5 #) [facility] TexasOxajojgALIYEVRZOB2071-15-19 09:56:00 Test Item Value Reference Range Interpretation Comments Basophils (test code = Basophils) 0.9 <=1.0 [facility] TexasJkmyvoqRLFMIWASUL4125-77-44 09:56:00 Test Item Value Reference Range Interpretation Comments Eosinophils # (test code = Eosinophils 0.2 <=0.5 #) [facility] TexasYncaobrHKLQXESRAT9843-69-26 09:56:00 Test Item Value Reference Range Interpretation Comments Segs-Bands # (test code = Segs-Bands #) 5.5 1.5-8.1 [facility] TexasQlgoqzpYAZGOUEQGL2250-88-12 09:56:00 Test Item Value Reference Range Interpretation Comments Monocytes # (test code = Monocytes #) 0.9 <=0.8 [facility]2017-06-13 09:56:00 Test Item Value Reference Range Interpretation Comments Ca Norm WB (test code = Ca Norm WB) 0.93 1.05-1.25 [facility]2017-06-13 09:56:00 Test Item Value Reference Range Interpretation Comments Ca Ion WB (test code = Ca Ion WB) 0.97 1.05-1.25 [facility]2017-06-13 09:56:00 Test Item Value Reference Range Interpretation Comments A/G Ratio (test code = A/G Ratio) 0.6 0.7-1.6 [facility]2017-06-13 09:56:00 Test Item Value Reference Range Interpretation Comments AGAP (test code = AGAP) 16.5 10.0-20.0 [facility]2017-06-13 09:56:00 Test Item Value Reference Range Interpretation Comments B/C Ratio (test code = B/C Ratio) 6 6-25 [facility]2017-06-13 09:56:00 Test Item Value Reference Range Interpretation Comments Globulin (test code = Globulin) 4.6 2.7-4.2 [facility]2017-06-13 09:56:00 Test Item Value Reference Range Interpretation Comments Bili Total (test code = Bili Total) 0.3 0.2-1.3 [facility]2017-06-13 09:56:00 Test Item Value Reference Range Interpretation Comments Alk Phos (test code = Alk Phos) 123 39-136 [facility]2017-06-13 09:56:00 Test Item Value Reference Range Interpretation Comments AST (test code = AST) 12 See_Comment [Auto mated message] The system which ge nerated this result transmit cruz reference range : <=37. The reference range was not used to interpr et this result as gee l/abnormal. [facility]2017-06-13 09:56:00 Test Item Value Reference Range Interpretation Comments Total Protein (test code = Total 7.3 6.4-8.4 Protein) [facility]2017-06-13 09:56:00 Test Item Value Reference Range Interpretation Comments Albumin Lvl (test code = Albumin Lvl) 2.7 3.5-5.0 [place] [id number] 09:56:00 Test Item Value Reference Range Interpretation Comments ALT (test code = ALT) 17 See_Comment [Auto mated message] The system which ge nerated this result transmit cruz reference range : <=65. The reference range was not used to interpr et this result as gee l/abnormal. [facility]2017-06-13 09:56:00 Test Item Value Reference Range Interpretation Comments CO2 (test code = CO2) 21 24-32 [facility]2017-06-13 09:56:00 Test Item Value Reference Range Interpretation Comments Calcium Lvl (test code = Calcium Lvl) 7.5 8.5-10.5 [facility]2017-06-13 09:56:00 Test Item Value Reference Range Interpretation Comments Potassium Lvl (test code = Potassium 4.5 3.5-5.1 Lvl) [facility]2017-06-13 09:56:00 Test Item Value Reference Range Interpretation Comments Creatinine Lvl (test code = Creatinine 9.18 0.50-1.40 Lvl) [facility]2017-06-13 09:56:00 Test Item Value Reference Range Interpretation Comments Sodium Lvl (test code = Sodium Lvl) 141 135-145 [facility]2017-06-13 09:56:00 Test Item Value Reference Range Interpretation Comments BUN (test code = BUN) 59 7-22 [facility]2017-06-13 09:56:00 Test Item Value Reference Range Interpretation Comments Chloride Lvl (test code = Chloride Lvl) 108 95-109 [facility]2017-06-13 09:56:00 Test Item Value Reference Range Interpretation Comments eGFR (test code = eGFR) 6 [facility]2017-06-13 09:56:00 Test Item Value Reference Range Interpretation Comments Glucose Lvl (test code = Glucose Lvl) 86 70-99 [facility]2017-06-13 09:56:00 Test Item Value Reference Range Interpretation Comments Phosphorus (test code = Phosphorus) 5.9 2.5-4.5 [facility]2017-06-13 09:56:00 Test Item Value Reference Range Interpretation Comments Magnesium Lvl (test code = Magnesium 2.0 1.8-2.4 Lvl) [facility] TexasLhoteiaZJLHSKMKLD8068-49-74 09:56:00 Test Item Value Reference Range Interpretation Comments Platelet (test code = Platelet) 225 133-450 [facility] TexasDkuppkwGQUSULARKH6410-74-88 09:56:00 Test Item Value Reference Range Interpretation Comments MPV (test code = MPV) 10.2 7.4-10.4 [facility] TexasOrabeduMMNCLTKSMM1620-74-11 09:56:00 Test Item Value Reference Range Interpretation Comments MCHC (test code = MCHC) 32.5 32.0-36.0 [facility] TexasWliqdziSYRIEPTHHR0685-47-93 09:56:00 Test Item Value Reference Range Interpretation Comments RDW (test code = RDW) 12.9 11.5-14.5 [facility] TexasWolpsikMECYVBZKZN0651-49-82 09:56:00 Test Item Value Reference Range Interpretation Comments MCV (test code = MCV) 89.7 80.0-94.0 [facility] TexasUtbpqwuZECZYKSYOS8065-81-57 09:56:00 Test Item Value Reference Range Interpretation Comments MCH (test code = MCH) 29.1 pg 27.0-31.0 [facility] TexasFxtqaqcHKWFJVLFFA7369-23-92 09:56:00 Test Item Value Reference Range Interpretation Comments Hct (test code = Hct) 37.0 42.0-54.0 [facility] TexasWrwctgzEULXLCRVKU7231-56-14 09:56:00 Test Item Value Reference Range Interpretation Comments RBC (test code = RBC) 4.12 4.70-6.10 [facility] TexasNcdtsonWNTLWASNIL6955-93-72 09:56:00 Test Item Value Reference Range Interpretation Comments Hgb (test code = Hgb) 12.0 14.0-18.0 [facility] TexasQrowiusBDNBLKCXMI7654-50-24 09:56:00 Test Item Value Reference Range Interpretation Comments WBC (test code = WBC) 8.8 3.7-10.4 [facility] TexasVhefrvuVQCZYOLROQ4963-40-39 09:56:00 Test Item Value Reference Range Interpretation Comments Monocytes (test code = Monocytes) 9.7 2.0-12.0 [place] [address]-06-13 09:56:00 Test Item Value Reference Range Interpretation Comments Eosinophils (test code = 2.8 See_Comment [A utomated message] The Eosinophils) system which ge nerated this result tra nsmitted reference range : <=4.0. The reference r jillian was not used to int erpret this result as normal/abnormal . [facility] TexasDojvtxeQVOKWGUMQT9928-80-53 09:56:00 Test Item Value Reference Range Interpretation Comments Segs (test code = Segs) 62.8 45.0-75.0 [facility] TexasJuaemwnSXYDVMSGAL0945-13-46 09:56:00 Test Item Value Reference Range Interpretation Comments Lymphocytes (test code = Lymphocytes) 23.8 20.0-40.0 [facility] TexasLkoxnbeGCMNJJVPSK4456-41-01 09:56:00 Test Item Value Reference Range Interpretation Comments Basophils # (test code 0.1 See_Comment [Aut omated message] The = Basophils #) system which generated this result tra nsmitted reference range : <=0.2. The reference r jillian was not used to int erpret this result as normal/abnormal . [facility] TexasKhxylmkVQXEXJJIFC6988-92-37 09:56:00 Test Item Value Reference Range Interpretation Comments Lymphocytes # (test code = Lymphocytes 2.1 1.0-5.5 #) [facility] TexasQmmmtpsVWCHJPCJKU4295-22-13 09:56:00 Test Item Value Reference Range Interpretation Comments Basophils (test code = 0.9 See_Comment [Aut omated message] The Basophils) system which ge nerated this result tra nsmitted reference range : <=1.0. The reference r jillian was not used to int erpret this result as normal/abnormal . [facility] TexasMkuopycWGHHSKPVJC5856-05-27 09:56:00 Test Item Value Reference Range Interpretation Comments Eosinophils # (test code 0.2 See_Comment [A utomated message] The = Eosinophils #) system whic h generated this result tra nsmitted reference range : <=0.5. The reference r jillian was not used to int erpret this result as normal/abnormal . [facility] TexasCdnmbyaPDDQBQVPKH1091-83-11 09:56:00 Test Item Value Reference Range Interpretation Comments Segs-Bands # (test code = Segs-Bands #) 5.5 1.5-8.1 [facility] TexasJvjbmzyICWWDUYFGX2473-94-54 09:56:00 Test Item Value Reference Range Interpretation Comments Monocytes # (test code 0.9 See_Comment [Aut omated message] The = Monocytes #) system which generated this result tra nsmitted reference range : <=0.8. The reference r jillian was not used to int erpret this result as normal/abnormal . [facility] RAIOHUB9[facility] 09:56:00 Test Item Value Reference Range Interpretation Comments Ca Norm WB (test code = Ca Norm WB) 0.93 1.05-1.25 [facility]PAR[facility] HTQWRFW8161-85-57 09:56:00 Test Item Value Reference Range Interpretation Comments Ca Ion WB (test code = Ca Ion WB) 0.97 1.05-1.25 [facility]2017-06-13 09:56:00 Test Item Value Reference Range Interpretation Comments A/G Ratio (test code = A/G Ratio) 0.6 0.7-1.6 [facility]2017-06-13 09:56:00 Test Item Value Reference Range Interpretation Comments AGAP (test code = AGAP) 16.5 10.0-20.0 [facility]2017-06-13 09:56:00 Test Item Value Reference Range Interpretation Comments B/C Ratio (test code = B/C Ratio) 6 6-25 [facility]2017-06-13 09:56:00 Test Item Value Reference Range Interpretation Comments Globulin (test code = Globulin) 4.6 2.7-4.2 [facility]2017-06-13 09:56:00 Test Item Value Reference Range Interpretation Comments Bili Total (test code = Bili Total) 0.3 0.2-1.3 [facility]2017-06-13 09:56:00 Test Item Value Reference Range Interpretation Comments Alk Phos (test code = Alk Phos) 123 39-136 [facility]2017-06-13 09:56:00 Test Item Value Reference Range Interpretation Comments AST (test code = AST) 12 <=37 [facility]2017-06-13 09:56:00 Test Item Value Reference Range Interpretation Comments Total Protein (test code = Total 7.3 6.4-8.4 Protein) [facility]2017-06-13 09:56:00 Test Item Value Reference Range Interpretation Comments Albumin Lvl (test code = Albumin Lvl) 2.7 3.5-5.0 [facility]2017-06-13 09:56:00 Test Item Value Reference Range Interpretation Comments ALT (test code = ALT) 17 <=65 [facility]2017-06-13 09:56:00 Test Item Value Reference Range Interpretation Comments CO2 (test code = CO2) 21 24-32 [facility]2017-06-13 09:56:00 Test Item Value Reference Range Interpretation Comments Calcium Lvl (test code = Calcium Lvl) 7.5 8.5-10.5 [facility]2017-06-13 09:56:00 Test Item Value Reference Range Interpretation Comments Potassium Lvl (test code = Potassium 4.5 3.5-5.1 Lvl) [facility]2017-06-13 09:56:00 Test Item Value Reference Range Interpretation Comments Creatinine Lvl (test code = Creatinine 9.18 0.50-1.40 Lvl) [facility]2017-06-13 09:56:00 Test Item Value Reference Range Interpretation Comments Sodium Lvl (test code = Sodium Lvl) 141 135-145 [facility]2017-06-13 09:56:00 Test Item Value Reference Range Interpretation Comments BUN (test code = BUN) 59 7-22 [facility]2017-06-13 09:56:00 Test Item Value Reference Range Interpretation Comments Chloride Lvl (test code = Chloride Lvl) 108 95-109 [facility]2017-06-13 09:56:00 Test Item Value Reference Range Interpretation Comments eGFR (test code = eGFR) 6 [facility]2017-06-13 09:56:00 Test Item Value Reference Range Interpretation Comments Glucose Lvl (test code = Glucose Lvl) 86 70-99 [facility]2017-06-13 09:56:00 Test Item Value Reference Range Interpretation Comments Phosphorus (test code = Phosphorus) 5.9 2.5-4.5 [facility]2017-06-13 09:56:00 Test Item Value Reference Range Interpretation Comments Magnesium Lvl (test code = Magnesium 2.0 1.8-2.4 Lvl) [facility]ZqzmzhcPPPALBOYJI4861-33-10 09:56:00 Test Item Value Reference Range Interpretation Comments Platelet (test code = Platelet) 225 133-450 [facility]IchjvgrSBNLFYWFJE2689-25-67 09:56:00 Test Item Value Reference Range Interpretation Comments MPV (test code = MPV) 10.2 7.4-10.4 [facility] TexasIqubzpuEFHVUAUOZD0494-08-96 09:56:00 Test Item Value Reference Range Interpretation Comments MCHC (test code = MCHC) 32.5 32.0-36.0 [facility]IjbrwyuZEEKJZVUVM5030-05-44 09:56:00 Test Item Value Reference Range Interpretation Comments RDW (test code = RDW) 12.9 11.5-14.5 [facility] TexasBljmdunQHRPNYAZUY4912-77-38 09:56:00 Test Item Value Reference Range Interpretation Comments MCV (test code = MCV) 89.7 80.0-94.0 [facility] TexasJuolpxfPEMQHEZTGV8323-18-25 09:56:00 Test Item Value Reference Range Interpretation Comments MCH (test code = MCH) 29.1 pg 27.0-31.0 [facility] TexasGvfmeslCRJMDSOPJB2444-90-90 09:56:00 Test Item Value Reference Range Interpretation Comments Hct (test code = Hct) 37.0 42.0-54.0 [facility] TexasAeozmwiXZTZDEXTHY7568-55-02 09:56:00 Test Item Value Reference Range Interpretation Comments RBC (test code = RBC) 4.12 4.70-6.10 [facility] TexasPjlwwlnQHWUWWRFRS3227-56-75 09:56:00 Test Item Value Reference Range Interpretation Comments Hgb (test code = Hgb) 12.0 14.0-18.0 [facility] TexasDttelkqLFWGGOEFKG9937-46-73 09:56:00 Test Item Value Reference Range Interpretation Comments WBC (test code = WBC) 8.8 3.7-10.4 [facility] TexasCowujqrOIEKODAKMC7932-37-61 09:56:00 Test Item Value Reference Range Interpretation Comments Monocytes (test code = Monocytes) 9.7 2.0-12.0 [facility] TexasDdksvurOYMYFKUHGB7625-31-08 09:56:00 Test Item Value Reference Range Interpretation Comments Eosinophils (test code = Eosinophils) 2.8 <=4.0 [facility] TexasEpukwgjAMXOOJTPOS3320-38-98 09:56:00 Test Item Value Reference Range Interpretation Comments Segs (test code = Segs) 62.8 45.0-75.0 [facility] TexasUqjgkqgEBCXSLUMQO6035-70-90 09:56:00 Test Item Value Reference Range Interpretation Comments Lymphocytes (test code = Lymphocytes) 23.8 20.0-40.0 [facility]od[facility]UILLSIYWXR1720-[facility] 09:56:00 Test Item Value Reference Range Interpretation Comments Basophils # (test code = Basophils #) 0.1 <=0.2 [facility] TexasGijgnzeUDRZCUBMXI0147-92-05 09:56:00 Test Item Value Reference Range Interpretation Comments Lymphocytes # (test code = Lymphocytes 2.1 1.0-5.5 #) [facility] TexasTbnjlviHNQMUWAMTI3281-71-42 09:56:00 Test Item Value Reference Range Interpretation Comments Basophils (test code = Basophils) 0.9 <=1.0 [facility] TexasJuuooquMLYOBCCRDJ3032-59-03 09:56:00 Test Item Value Reference Range Interpretation Comments Eosinophils # (test code = Eosinophils 0.2 <=0.5 #) [facility] TexasBifzeinCABVJYWKPO9516-52-62 09:56:00 Test Item Value Reference Range Interpretation Comments Segs-Bands # (test code = Segs-Bands #) 5.5 1.5-8.1 [facility] TexasPpbfjjaVLNFEHOACA6589-15-32 09:56:00 Test Item Value Reference Range Interpretation Comments Monocytes # (test code = Monocytes #) 0.[address] <=0[address]8 [facility] HospitalannPARATHYROID SRNPZWD8798-77-46 09:56:00 Test Item Value Reference Range Interpretation Comments Ca Norm WB (test code = Ca Norm WB) 0.93 1.05-1.25 [facility] ANFFVAI0457-44-37 09:56:00 Test Item Value Reference Range Interpretation Comments Ca Ion WB (test code = Ca Ion WB) 0.97 1.05-1.25 [facility] [facility] [id number] 22:14:00 Test Item Value Reference Range Interpretation Comments BNP (test code = BNP) 59 [facility] [id number] 22:14:00 Test Item Value Reference Range Interpretation Comments BNP (test code = BNP) 59 [facility] [id number] 22:14:00 Test Item Value Reference Range Interpretation Comments BNP (test code = BNP) 59 [facility] [id number] 22:14:00 Test Item Value Reference Range Interpretation Comments BNP (test code = BNP) 59 [facility] [id number] 22:14:00 Test Item Value Reference Range Interpretation Comments BNP (test code = BNP) [facility] [id number] 22:14:00 Test Item Value Reference Range Interpretation Comments BNP (test code = BNP) 59 [facility]2017-06-12 22:13:00 Test Item Value Reference Range Interpretation Comments ALT (test code = ALT) 21 See_Comment [Auto mated message] The system which ge nerated this result transmit cruz reference range : <=65. The reference range was not used to interpr et this result as gee l/abnormal. [facility]2017-06-12 22:13:00 Test Item Value Reference Range Interpretation Comments Albumin Lvl (test code = Albumin Lvl) 2.9 3.5-5.0 [facility]2017-06-12 22:13:00 Test Item Value Reference Range Interpretation Comments AST (test code = AST) 14 See_Comment [Auto mated message] The system which ge nerated this result transmit cruz reference range : <=37. The reference range was not used to interpr et this result as gee l/abnormal. [facility]2017-06-12 22:13:00 Test Item Value Reference Range Interpretation Comments Total Protein (test code = Total 7.8 6.4-8.4 Protein) [facility]2017-06-12 22:13:00 Test Item Value Reference Range Interpretation Comments Bili Total (test code = Bili Total) 0.2 0.2-1.3 [facility]2017-06-12 22:13:00 Test Item Value Reference Range Interpretation Comments Alk Phos (test code = Alk Phos) 133 39-136 [facility]2017-06-12 22:13:00 Test Item Value Reference Range Interpretation Comments Globulin (test code = Globulin) 4.9 2.7-4.2 [facility]2017-06-12 22:13:00 Test Item Value Reference Range Interpretation Comments B/C Ratio (test code = B/C Ratio) 6 6-25 [facility]2017-06-12 22:13:00 Test Item Value Reference Range Interpretation Comments A/G Ratio (test code = A/G Ratio) 0.6 0.7-1.6 [id number] 22:13:00 Test Item Value Reference Range Interpretation Comments MPV (test code = MPV) 10.7 7.4-10.4 [id number] 22:13:00 Test Item Value Reference Range Interpretation Comments MCV (test code = MCV) 89.4 80.0-94.0 [id number] 22:13:00 Test Item Value Reference Range Interpretation Comments MCHC (test code = MCHC) 33.0 32.0-36.0 [id number] 22:13:00 Test Item Value Reference Range Interpretation Comments RDW (test code = RDW) 13.0 11.5-14.5 [facility] TexasYqamrzfZBJQSMIWBI4775-07-58 22:13:00 Test Item Value Reference Range Interpretation Comments MCH (test code = MCH) 29.5 pg 27.0-31.0 [id number] 22:13:00 Test Item Value Reference Range Interpretation Comments Platelet (test code = Platelet) 231 133-450 [facility] Tex[id number] 22:13:00 Test Item Value Reference Range Interpretation Comments Hgb (test code = Hgb) 12.0 14.0-18.0 [facility] Tex[id number] 22:13:00 Test Item Value Reference Range Interpretation Comments Hct (test code = Hct) 36.5 42.0-54.0 [facility] TexasJlnwtifWIAZUTGIAA7920-98-54 22:13:00 Test Item Value Reference Range Interpretation Comments RBC (test code = RBC) 4.09 4.70-6.10 [facility] Tex[id number] 22:13:00 Test Item Value Reference Range Interpretation Comments WBC (test code = WBC) 8.0 3.7-10.4 [facility] [id number] 22:13:00 Test Item Value Reference Range Interpretation Comments Basophils # (test code 0.0 See_Comment [Aut omated message] The = Basophils #) system which generated this result tra nsmitted reference range : <=0.2. The reference r jillian was not used to int erpret this result as normal/abnormal . [facility] TexasAsfbgdyPQFPRYWWBF0891-49-99 22:13:00 Test Item Value Reference Range Interpretation Comments Lymphocytes # (test code = Lymphocytes 1.5 1.0-5.5 #) [facility] TexasOatimwgBXCYSBDMHZ0815-08-37 22:13:00 Test Item Value Reference Range Interpretation Comments Segs-Bands # (test code = Segs-Bands #) 5.8 1.5-8.1 [facility] Tex[id number] 22:13:00 Test Item Value Reference Range Interpretation Comments Eosinophils # (test code 0.2 See_Comment [A utomated message] The = Eosinophils #) system whic h generated this result tra nsmitted reference range : <=0.5. The reference r jillian was not used to int erpret this result as normal/abnormal . [facility] Tex[id number] 22:13:00 Test Item Value Reference Range Interpretation Comments Monocytes # (test code 0.4 See_Comment [Aut omated message] The = Monocytes #) system which generated this result tra nsmitted reference range : <=0.8. The reference r jillian was not used to int erpret this result as normal/abnormal . [facility] [id number] 22:13:00 Test Item Value Reference Range Interpretation Comments Basophils (test code = 0.5 See_Comment [Aut omated message] The Basophils) system which ge nerated this result tra nsmitted reference range : <=1.0. The reference r jillian was not used to int erpret this result as normal/abnormal . [facility] TexasKgmucbqNGEUAIMRVL1196-62-35 22:13:00 Test Item Value Reference Range Interpretation Comments Eosinophils (test code = 2.8 See_Comment [A utomated message] The Eosinophils) system which ge nerated this result tra nsmitted reference range : <=4.0. The reference r jillian was not used to int erpret this result as normal/abnormal . [facility] TexasDxllmeaGLZAVEJPAJ3085-72-44 22:13:00 Test Item Value Reference Range Interpretation Comments Lymphocytes (test code = Lymphocytes) 19.0 20.0-40.0 [facility] Tex[id number] 22:13:00 Test Item Value Reference Range Interpretation Comments Monocytes (test code = Monocytes) 5.6 2.0-12.0 [facility] Tex[id number] 22:13:00 Test Item Value Reference Range Interpretation Comments Segs (test code = Segs) 72.1 45.0-75.0 [facility] AND [id number] 22:13:00 Test Item Value Reference Range Interpretation Comments UA Spec Grav (test code = UA Spec Grav) 1.014 [facility] AND [id number] 22:13:00 Test Item Value Reference Range Interpretation Comments UA Urobilinogen (test code = UA <=1.0 mg/dL 0.1-1.0 Urobilinogen) [facility] AND [id number] 22:13:00 Test Item Value Reference Range Interpretation Comments UA Bili (test code = Negative *NA*(03/10/17 UA Bili) 5:13 PM) [facility] AND [id number] 22:13:00 Test Item Value Reference Range Interpretation Comments UA Ketones (test code = UA Negative mg/dL Ketones) [facility] AND [id number] 22:13:00 Test Item Value Reference Range Interpretation Comments UA Glucose (test code = UA Glucose) 50 mg/dL [facility] AND [id number] 22:13:00 Test Item Value Reference Range Interpretation Comments UA Blood (test code = Small *ABN*(03/10/17 UA Blood) 5:13 PM) [facility] AND [id number] 22:13:00 Test Item Value Reference Range Interpretation Comments UA Color (test code = Light Yellow UA Color) *NA*(03/10/17 5:13 PM) [facility] AND [id number] 22:13:00 Test Item Value Reference Range Interpretation Comments UA Mucus (test code = UA Mucus) Few /LPF [facility] AND [id number] 22:13:00 Test Item Value Reference Range Interpretation Comments UA RBC (test code = 27 See_Comment [Automa cruz message] The UA RBC) system which ge nerated this result transmit cruz reference range : <=2. The reference range was not used to interpr et this result as gee l/abnormal. [facility] AND [id number] 22:13:00 Test Item Value Reference Range Interpretation Comments UA Hyal Cast (test 1 See_Comment [Automat ed message] The code = UA Hyal Cast) system which generated this result transmit cruz reference range : <=2. The reference range was not used to interpr et this result as gee l/abnormal. [facility] AND [id number] 22:13:00 Test Item Value Reference Range Interpretation Comments UA Turbidity (test code = Clear (03/10/17 5:13 UA Turbidity) PM) [facility] AND [id number] 22:13:00 Test Item Value Reference Range Interpretation Comments UA Protein (test code = UA >=300 mg/dL Protein) [facility] AND [id number] 22:13:00 Test Item Value Reference Range Interpretation Comments UA pH (test code = UA pH) 6.0 5.0-8.0 [facility] AND [id number] 22:13:00 Test Item Value Reference Range Interpretation Comments UA Nitrite (test code Negative (03/10/17 5:13 = UA Nitrite) PM) [facility] AND [id number] 22:13:00 Test Item Value Reference Range Interpretation Comments UA Leuk Est (test code Trace *ABN*(03/10/17 = UA Leuk Est) 5:13 PM) [facility] AND [id number] 22:13:00 Test Item Value Reference Range Interpretation Comments UA Sq Epi (test code = UA Sq Occasional /LPF Epi) [facility] AND [id number] 22:13:00 Test Item Value Reference Range Interpretation Comments UA WBC (test code = 22 See_Comment [Automa cruz message] The UA WBC) system which ge nerated this result transmit cruz reference range : <=5. The reference range was not used to interpr et this result as gee l/abnormal. [facility] [id number] 22:13:00 Test Item Value Reference Range Interpretation Comments ALT (test code = ALT) 21 See_Comment [Auto mated message] The system which ge nerated this result transmit cruz reference range : <=65. The reference range was not used to interpr et this result as gee l/abnormal. [facility]2017-06-12 22:13:00 Test Item Value Reference Range Interpretation Comments Albumin Lvl (test code = Albumin Lvl) 2.9 3.5-5.0 [facility]2017-06-12 22:13:00 Test Item Value Reference Range Interpretation Comments AST (test code = AST) 14 See_Comment [Auto mated message] The system which ge nerated this result transmit cruz reference range : <=37. The reference range was not used to interpr et this result as gee l/abnormal. [facility]2017-06-12 22:13:00 Test Item Value Reference Range Interpretation Comments Total Protein (test code = Total 7.8 6.4-8.4 Protein) [facility]2017-06-12 22:13:00 Test Item Value Reference Range Interpretation Comments Bili Total (test code = Bili Total) 0.2 0.2-1.3 [facility]2017-06-12 22:13:00 Test Item Value Reference Range Interpretation Comments Alk Phos (test code = Alk Phos) 133 39-136 [facility]2017-06-12 22:13:00 Test Item Value Reference Range Interpretation Comments Globulin (test code = Globulin) 4.9 2.7-4.2 [facility]2017-06-12 22:13:00 Test Item Value Reference Range Interpretation Comments B/C Ratio (test code = B/C Ratio) 6 6-25 [facility]2017-06-12 22:13:00 Test Item Value Reference Range Interpretation Comments A/G Ratio (test code = A/G Ratio) 0.6 0.7-1.6 [facility]CcstygfGGFEFBDTMO4069-12-77 22:13:00 Test Item Value Reference Range Interpretation Comments MPV (test code = MPV) 10.7 7.4-10.4 [facility] [id number] 22:13:00 Test Item Value Reference Range Interpretation Comments MCV (test code = MCV) 89.4 80.0-94.0 [facility] TexasOymnvtdZVAIRRPWFA7226-14-70 22:13:00 Test Item Value Reference Range Interpretation Comments MCHC (test code = MCHC) 33.0 32.0-36.0 [facility] TexasG[id number] 22:13:00 Test Item Value Reference Range Interpretation Comments RDW (test code = RDW) 13.0 11.5-14.5 [facility] [id number] 22:13:00 Test Item Value Reference Range Interpretation Comments MCH (test code = MCH) 29.5 pg 27.0-31.0 [facility] [id number] 22:13:00 Test Item Value Reference Range Interpretation Comments Platelet (test code = Platelet) 231 133-450 [facility] TexasWfyqwcmSOOKWJLYCZ2721-00-06 22:13:00 Test Item Value Reference Range Interpretation Comments Hgb (test code = Hgb) 12.0 14.0-18.0 [facility] TexasFfbxvihBVDQGPWBHP9084-32-95 22:13:00 Test Item Value Reference Range Interpretation Comments Hct (test code = Hct) 36.5 42.0-54.0 [facility] TexasGptgixpRODVVNJHPA8218-97-20 22:13:00 Test Item Value Reference Range Interpretation Comments RBC (test code = RBC) 4.09 4.70-6.10 [facility] TexasGfmmpqyRMYHEBJJOT8712-19-29 22:13:00 Test Item Value Reference Range Interpretation Comments WBC (test code = WBC) 8.0 3.7-10.4 [facility]X[id number] 22:13:00 Test Item Value Reference Range Interpretation Comments Basophils # (test code 0.0 See_Comment [Aut omated message] The = Basophils #) system which generated this result tra nsmitted reference range : <=0.2. The reference r jillian was not used to int erpret this result as normal/abnormal . [facility] TexasTtpxvsaGGWUWGMPMU6092-43-31 22:13:00 Test Item Value Reference Range Interpretation Comments Lymphocytes # (test code = Lymphocytes 1.5 1.0-5.5 #) [facility] TexasPeevlcgCOHRJQYUGW3597-20-28 22:13:00 Test Item Value Reference Range Interpretation Comments Segs-Bands # (test code = Segs-Bands #) 5.8 1.5-8.1 [facility] Tex[id number] 22:13:00 Test Item Value Reference Range Interpretation Comments Eosinophils # (test code 0.2 See_Comment [A utomated message] The = Eosinophils #) system whic h generated this result tra nsmitted reference range : <=0.5. The reference r jillian was not used to int erpret this result as normal/abnormal . [facility] TexasPvzhqmwQIYAQPOIQN7196-83-04 22:13:00 Test Item Value Reference Range Interpretation Comments Monocytes # (test code 0.4 See_Comment [Aut omated message] The = Monocytes #) system which generated this result tra nsmitted reference range : <=0.8. The reference r jillian was not used to int erpret this result as normal/abnormal . [facility] TexasCaklgfkCZGJSNRKIR3214-15-03 22:13:00 Test Item Value Reference Range Interpretation Comments Basophils (test code = 0.5 See_Comment [Aut omated message] The Basophils) system which ge nerated this result tra nsmitted reference range : <=1.0. The reference r jillian was not used to int erpret this result as normal/abnormal . [facility] TexasJdnolljUXKBFYZMNS8415-23-14 22:13:00 Test Item Value Reference Range Interpretation Comments Eosinophils (test code = 2.8 See_Comment [A utomated message] The Eosinophils) system which ge nerated this result tra nsmitted reference range : <=4.0. The reference r jillian was not used to int erpret this result as normal/abnormal . [facility] TexasTlcngzaOEOSYLTLHB5507-06-94 22:13:00 Test Item Value Reference Range Interpretation Comments Lymphocytes (test code = Lymphocytes) 19.0 20.0-40.0 [facility] Tex[id number] 22:13:00 Test Item Value Reference Range Interpretation Comments Monocytes (test code = Monocytes) 5.6 2.0-12.0 [facility] TexasVksiobeMVWRFSEFQI4903-93-87 22:13:00 Test Item Value Reference Range Interpretation Comments Segs (test code = Segs) 72.1 45.0-75.0 [facility]2017-06-12 22:13:00 Test Item Value Reference Range Interpretation Comments UA Spec Grav (test code = UA Spec Grav) 1.014 [facility]2017-06-12 22:13:00 Test Item Value Reference Range Interpretation Comments UA Urobilinogen (test code = UA <=1.0 mg/dL 0.1-1.0 Urobilinogen) [facility] AND [id number] 22:13:00 Test Item Value Reference Range Interpretation Comments UA Bili (test code = Negative *NA*(03/10/17 UA Bili) 5:13 PM) [facility]2017-06-12 22:13:00 Test Item Value Reference Range Interpretation Comments UA Ketones (test code = UA Negative mg/dL Ketones) [facility] AND [id number] 22:13:00 Test Item Value Reference Range Interpretation Comments UA Glucose (test code = UA Glucose) 50 mg/dL [facility] AND [id number] 22:13:00 Test Item Value Reference Range Interpretation Comments UA Blood (test code = Small *ABN*(03/10/17 UA Blood) 5:13 PM) [facility] AND [id number] 22:13:00 Test Item Value Reference Range Interpretation Comments UA Color (test code = Light Yellow UA Color) *NA*(03/10/17 5:13 PM) [facility] AND [id number] 22:13:00 Test Item Value Reference Range Interpretation Comments UA Mucus (test code = UA Mucus) Few /LPF [facility] [id number] 22:13:00 Test Item Value Reference Range Interpretation Comments UA RBC (test code = 27 See_Comment [Automa cruz message] The UA RBC) system which ge nerated this result transmit cruz reference range : <=2. The reference range was not used to interpr et this result as gee l/abnormal. [facility] AND [id number] 22:13:00 Test Item Value Reference Range Interpretation Comments UA Hyal Cast (test 1 See_Comment [Automat ed message] The code = UA Hyal Cast) system which generated this result transmit cruz reference range : <=2. The reference range was not used to interpr et this result as gee l/abnormal. [facility] AND [id number] 22:13:00 Test Item Value Reference Range Interpretation Comments UA Turbidity (test code = Clear (03/10/17 5:13 UA Turbidity) PM) [facility] AND [id number] 22:13:00 Test Item Value Reference Range Interpretation Comments UA Protein (test code = UA >=300 mg/dL Protein) [facility] AND [id number] 22:13:00 Test Item Value Reference Range Interpretation Comments UA pH (test code = UA pH) 6.0 5.0-8.0 [facility] AND [id number] 22:13:00 Test Item Value Reference Range Interpretation Comments UA Nitrite (test code Negative (03/10/17 5:13 = UA Nitrite) PM) [facility] AND [id number] 22:13:00 Test Item Value Reference Range Interpretation Comments UA Leuk Est (test code Trace *ABN*(03/10/17 = UA Leuk Est) 5:13 PM) [facility] AND [id number] 22:13:00 Test Item Value Reference Range Interpretation Comments UA Sq Epi (test code = UA Sq Occasional /LPF Epi) [facility] AND [id number] 22:13:00 Test Item Value Reference Range Interpretation Comments UA WBC (test code = 22 See_Comment [Automa cruz message] The UA WBC) system which ge nerated this result transmit cruz reference range : <=5. The reference range was not used to interpr et this result as gee l/abnormal. [facility] [id number] 22:13:00 Test Item Value Reference Range Interpretation Comments ALT (test code = ALT) 21 See_Comment [Auto mated message] The system which ge nerated this result transmit cruz reference range : <=65. The reference range was not used to interpr et this result as gee l/abnormal. [facility] [id number] 22:13:00 Test Item Value Reference Range Interpretation Comments Albumin Lvl (test code = Albumin Lvl) 2.9 3.5-5.0 [facility]2017-06-12 22:13:00 Test Item Value Reference Range Interpretation Comments AST (test code = AST) 14 See_Comment [Auto mated message] The system which ge nerated this result transmit cruz reference range : <=37. The reference range was not used to interpr et this result as gee l/abnormal. [facility] [id number] 22:13:00 Test Item Value Reference Range Interpretation Comments Total Protein (test code = Total 7.8 6.4-8.4 Protein) [facility]2017-06-12 22:13:00 Test Item Value Reference Range Interpretation Comments Bili Total (test code = Bili Total) 0.2 0.2-1.3 [facility]Picasso[facility]io[facility] [id number] 22:13:00 Test Item Value Reference Range Interpretation Comments Alk Phos (test code = Alk Phos) 133 39-136 [facility]2017-06-12 22:13:00 Test Item Value Reference Range Interpretation Comments Globulin (test code = Globulin) 4.9 2.7-4.2 [facility]2017-06-12 22:13:00 Test Item Value Reference Range Interpretation Comments B/C Ratio (test code = B/C Ratio) 6 6-25 [facility]2017-06-12 22:13:00 Test Item Value Reference Range Interpretation Comments A/G Ratio (test code = A/G Ratio) 0.6 0.7-1.6 [facility]TtepwtlXMPCZZZKND2707-76-46 22:13:00 Test Item Value Reference Range Interpretation Comments MPV (test code = MPV) 10.7 7.4-10.4 [facility] TexasBnltlpkPYUPOXWAIC5114-66-31 22:13:00 Test Item Value Reference Range Interpretation Comments MCV (test code = MCV) 89.4 80.0-94.0 [facility] TexasHbijlwgXMYAWFQYVO5773-77-17 22:13:00 Test Item Value Reference Range Interpretation Comments MCHC (test code = MCHC) 33.0 32.0-36.0 [facility] [id number] 22:13:00 Test Item Value Reference Range Interpretation Comments RDW (test code = RDW) 13.0 11.5-14.5 [facility] [id number] 22:13:00 Test Item Value Reference Range Interpretation Comments MCH (test code = MCH) 29.5 pg 27.0-31.0 [facility] TexasXfjakvpGGTJELQQML1865-50-45 22:13:00 Test Item Value Reference Range Interpretation Comments Platelet (test code = Platelet) 231 133-450 [facility] TexasVbeyornWAXUEWUYJL6846-01-42 22:13:00 Test Item Value Reference Range Interpretation Comments Hgb (test code = Hgb) 12.0 14.0-18.0 [facility] TexasCzduelaANCCQJUCVJ0743-62-80 22:13:00 Test Item Value Reference Range Interpretation Comments Hct (test code = Hct) 36.5 42.0-54.0 [facility] TexasKifpqiwBDDRSTRUPS1810-25-16 22:13:00 Test Item Value Reference Range Interpretation Comments RBC (test code = RBC) 4.09 4.70-6.10 [facility] TexasJwmtsgrHZAKRUCNXR5299-47-50 22:13:00 Test Item Value Reference Range Interpretation Comments WBC (test code = WBC) 8.0 3.7-10.4 [facility] TexasBkkroqdODRHZCJLOU7691-91-38 22:13:00 Test Item Value Reference Range Interpretation Comments Basophils # (test code 0.0 See_Comment [Aut omated message] The = Basophils #) system which generated this result tra nsmitted reference range : <=0.2. The reference r jillian was not used to int erpret this result as normal/abnormal . [facility] Tex[id number] 22:13:00 Test Item Value Reference Range Interpretation Comments Lymphocytes # (test code = Lymphocytes 1.5 1.0-5.5 #) [id number] 22:13:00 Test Item Value Reference Range Interpretation Comments Segs-Bands # (test code = Segs-Bands #) 5.8 1.5-8.1 [id number] 22:13:00 Test Item Value Reference Range Interpretation Comments Eosinophils # (test code 0.2 See_Comment [A utomated message] The = Eosinophils #) system wh h generated this result tra nsmitted reference range : <=0.5. The reference r jillian was not used to int erpret this result as normal/abnormal . [facility] [id number] 22:13:00 Test Item Value Reference Range Interpretation Comments Monocytes # (test code 0.4 See_Comment [Aut omated message] The = Monocytes #) system which generated this result tra nsmitted reference range : <=0.8. The reference r jillian was not used to int erpret this result as normal/abnormal . [facility] TexasEormnmsTMYBKQLBBI1186-69-56 22:13:00 Test Item Value Reference Range Interpretation Comments Basophils (test code = 0.5 See_Comment [Aut omated message] The Basophils) system which ge nerated this result tra nsmitted reference range : <=1.0. The reference r jillian was not used to int erpret this result as normal/abnormal . [facility]MhbvnyiSNCSXLXVKT7448-20-06 22:13:00 Test Item Value Reference Range Interpretation Comments Eosinophils (test code = 2.8 See_Comment [A utomated message] The Eosinophils) system which ge nerated this result tra nsmitted reference range : <=4.0. The reference r jillian was not used to int erpret this result as normal/abnormal . [facility] TexasDntvkszDBQBVPIGGH1941-01-60 22:13:00 Test Item Value Reference Range Interpretation Comments Lymphocytes (test code = Lymphocytes) 19.0 20.0-40.0 [facility] TexasTvuuvlhVHSHKLJKTW6103-14-15 22:13:00 Test Item Value Reference Range Interpretation Comments Monocytes (test code = Monocytes) 5.6 2.0-12.0 [facility]XfrgosjPVEVZLNLNR5361-03-25 22:13:00 Test Item Value Reference Range Interpretation Comments Segs (test code = Segs) 72.1 45.0-75.0 [facility] [id number] 22:13:00 Test Item Value Reference Range Interpretation Comments UA Spec Grav (test code = UA Spec Grav) 1.014 [facility]2017-06-12 22:13:00 Test Item Value Reference Range Interpretation Comments UA Urobilinogen (test code = UA <=1.0 mg/dL 0.1-1.0 Urobilinogen) [facility] [id number] 22:13:00 Test Item Value Reference Range Interpretation Comments UA Bili (test code = Negative *NA*(03/10/17 UA Bili) 5:13 PM) [facility] [id number] 22:13:00 Test Item Value Reference Range Interpretation Comments UA Ketones (test code = UA Negative mg/dL Ketones) [facility] [id number] 22:13:00 Test Item Value Reference Range Interpretation Comments UA Glucose (test code = UA Glucose) 50 mg/dL [facility] AND [id number] 22:13:00 Test Item Value Reference Range Interpretation Comments UA Blood (test code = Small *ABN*(03/10/17 UA Blood) 5:13 PM) [facility] [id number] 22:13:00 Test Item Value Reference Range Interpretation Comments UA Color (test code = Light Yellow UA Color) *NA*(03/10/17 5:13 PM) [facility] [id number] 22:13:00 Test Item Value Reference Range Interpretation Comments UA Mucus (test code = UA Mucus) Few /LPF [facility] [id number] 22:13:00 Test Item Value Reference Range Interpretation Comments UA RBC (test code = 27 See_Comment [Automa cruz message] The UA RBC) system which ge nerated this result transmit cruz reference range : <=2. The reference range was not used to interpr et this result as gee l/abnormal. [facility] AND [id number] 22:13:00 Test Item Value Reference Range Interpretation Comments UA Hyal Cast (test 1 See_Comment [Automat ed message] The code = UA Hyal Cast) system which generated this result transmit cruz reference range : <=2. The reference range was not used to interpr et this result as gee l/abnormal. [facility] AND [id number] 22:13:00 Test Item Value Reference Range Interpretation Comments UA Turbidity (test code = Clear (03/10/17 5:13 UA Turbidity) PM) [facility] [id number] 22:13:00 Test Item Value Reference Range Interpretation Comments UA Protein (test code = UA >=300 mg/dL Protein) [facility] [id number] 22:13:00 Test Item Value Reference Range Interpretation Comments UA pH (test code = UA pH) 6.0 5.0-8.0 [facility] AND [id number] 22:13:00 Test Item Value Reference Range Interpretation Comments UA Nitrite (test code Negative (03/10/17 5:13 = UA Nitrite) PM) [facility] [id number] 22:13:00 Test Item Value Reference Range Interpretation Comments UA Leuk Est (test code Trace *ABN*(03/10/17 = UA Leuk Est) 5:13 PM) [facility] [id number] 22:13:00 Test Item Value Reference Range Interpretation Comments UA Sq Epi (test code = UA Sq Occasional /LPF Epi) [facility] AND [id number] 22:13:00 Test Item Value Reference Range Interpretation Comments UA WBC (test code = 22 See_Comment [Automa cruz message] The UA WBC) system which ge nerated this result transmit cruz reference range : <=5. The reference range was not used to interpr et this result as gee l/abnormal. [facility]2017-06-12 22:13:00 Test Item Value Reference Range Interpretation Comments ALT (test code = ALT) 21 <=65 [facility]2017-06-12 22:13:00 Test Item Value Reference Range Interpretation Comments Albumin Lvl (test code = Albumin Lvl) 2.9 3.5-5.0 [facility]2017-06-12 22:13:00 Test Item Value Reference Range Interpretation Comments AST (test code = AST) 14 <=37 [facility]2017-06-12 22:13:00 Test Item Value Reference Range Interpretation Comments Total Protein (test code = Total 7.8 6.4-8.4 Protein) [facility]2017-06-12 22:13:00 Test Item Value Reference Range Interpretation Comments Bili Total (test code = Bili Total) 0.2 0.2-1.3 [facility]2017-06-12 22:13:00 Test Item Value Reference Range Interpretation Comments Alk Phos (test code = Alk Phos) 133 39-136 [facility]2017-06-12 22:13:00 Test Item Value Reference Range Interpretation Comments Globulin (test code = Globulin) 4.9 2.7-4.2 [facility]2017-06-12 22:13:00 Test Item Value Reference Range Interpretation Comments B/C Ratio (test code = B/C Ratio) 6 6-25 [facility]2017-06-12 22:13:00 Test Item Value Reference Range Interpretation Comments A/G Ratio (test code = A/G Ratio) 0.6 0.7-1.6 [id number] 22:13:00 Test Item Value Reference Range Interpretation Comments MPV (test code = MPV) 10.7 7.4-10.4 [facility]MtwwackOGBXZUHXNK8067-01-79 22:13:00 Test Item Value Reference Range Interpretation Comments MCV (test code = MCV) 89.4 80.0-94.0 [id number] 22:13:00 Test Item Value Reference Range Interpretation Comments MCHC (test code = MCHC) 33.0 32.0-36.0 [facility]PimiuzbECXPSGDZKZ6499-56-45 22:13:00 Test Item Value Reference Range Interpretation Comments RDW (test code = RDW) 13.0 11.5-14.5 [id number] 22:13:00 Test Item Value Reference Range Interpretation Comments MCH (test code = MCH) 29.5 pg 27.0-31.0 [id number] 22:13:00 Test Item Value Reference Range Interpretation Comments Platelet (test code = Platelet) 231 133-450 [id number] 22:13:00 Test Item Value Reference Range Interpretation Comments Hgb (test code = Hgb) 12.0 14.0-18.0 [facility] TexasZvxgzrqHCBMMLRVQC2801-40-58 22:13:00 Test Item Value Reference Range Interpretation Comments Hct (test code = Hct) 36.5 42.0-54.0 [facility] Tex[id number] 22:13:00 Test Item Value Reference Range Interpretation Comments RBC (test code = RBC) 4.09 4.70-6.10 [facility]DuteiqvLMTGLCWFOX9745-41-78 22:13:00 Test Item Value Reference Range Interpretation Comments WBC (test code = WBC) 8.0 3.7-10.4 [id number] 22:13:00 Test Item Value Reference Range Interpretation Comments Basophils # (test code = Basophils #) 0.0 <=0.2 [facility]OxoyiujNMPXQDSQQA9144-94-61 22:13:00 Test Item Value Reference Range Interpretation Comments Lymphocytes # (test code = Lymphocytes 1.5 1.0-5.5 #) [facility]SbirysjKDGEUNBBMS0193-07-04 22:13:00 Test Item Value Reference Range Interpretation Comments Segs-Bands # (test code = Segs-Bands #) 5.8 1.5-8.1 [id number] 22:13:00 Test Item Value Reference Range Interpretation Comments Eosinophils # (test code = Eosinophils 0.2 <=0.5 #) [facility]MuypihpIWWDQVQUBH1472-17-27 22:13:00 Test Item Value Reference Range Interpretation Comments Monocytes # (test code = Monocytes #) 0.4 <=0.8 [facility]NtefbajLIRENLYJCT8356-69-05 22:13:00 Test Item Value Reference Range Interpretation Comments Basophils (test code = Basophils) 0.5 <=1.0 [id number] 22:13:00 Test Item Value Reference Range Interpretation Comments Eosinophils (test code = Eosinophils) 2.8 <=4.0 [facility]JamkflhPYTXJXXSNZ6729-48-47 22:13:00 Test Item Value Reference Range Interpretation Comments Lymphocytes (test code = Lymphocytes) 19.0 20.0-40.0 [id number] 22:13:00 Test Item Value Reference Range Interpretation Comments Monocytes (test code = Monocytes) 5.6 2.0-12.0 [facility]GkqseviYXTISSZUDH5765-04-13 22:13:00 Test Item Value Reference Range Interpretation Comments Segs (test code = Segs) 72.1 45.0-75.0 [facility] [id number] 22:13:00 Test Item Value Reference Range Interpretation Comments UA Spec Grav (test code = UA Spec Grav) 1.014 [facility] [id number] 22:13:00 Test Item Value Reference Range Interpretation Comments UA Urobilinogen (test code = UA <=1.0 mg/dL 0.1-1.0 Urobilinogen) [facility] [id number] 22:13:00 Test Item Value Reference Range Interpretation Comments UA Bili (test code = Negative *NA*(03/10/17 UA Bili) 5:13 PM) [facility] [id number] 22:13:00 Test Item Value Reference Range Interpretation Comments UA Ketones (test code = UA Negative mg/dL Ketones) [facility] [id number] 22:13:00 Test Item Value Reference Range Interpretation Comments UA Glucose (test code = UA Glucose) 50 mg/dL [facility] [id number] 22:13:00 Test Item Value Reference Range Interpretation Comments UA Blood (test code = Small *ABN*(03/10/17 UA Blood) 5:13 PM) [facility] [id number] 22:13:00 Test Item Value Reference Range Interpretation Comments UA Color (test code = Light Yellow UA Color) *NA*(03/10/17 5:13 PM) [facility] [id number] 22:13:00 Test Item Value Reference Range Interpretation Comments UA Mucus (test code = UA Mucus) Few /LPF [facility] [id number] 22:13:00 Test Item Value Reference Range Interpretation Comments UA RBC (test code = UA RBC) 27 <=2 [facility] [id number] 22:13:00 Test Item Value Reference Range Interpretation Comments UA Hyal Cast (test code = UA Hyal Cast) 1 <=2 [facility] [id number] 22:13:00 Test Item Value Reference Range Interpretation Comments UA Turbidity (test code = Clear (03/10/17 5:13 UA Turbidity) PM) [facility] [id number] 22:13:00 Test Item Value Reference Range Interpretation Comments UA Protein (test code = UA >=300 mg/dL Protein) [facility] [id number] 22:13:00 Test Item Value Reference Range Interpretation Comments UA pH (test code = UA pH) 6.0 5.0-8.0 [facility] [id number] 22:13:00 Test Item Value Reference Range Interpretation Comments UA Nitrite (test code Negative (03/10/17 5:13 = UA Nitrite) PM) [facility] [id number] 22:13:00 Test Item Value Reference Range Interpretation Comments UA Leuk Est (test code Trace *ABN*(03/10/17 = UA Leuk Est) 5:13 PM) [facility] [id number] 22:13:00 Test Item Value Reference Range Interpretation Comments UA Sq Epi (test code = UA Sq Occasional /LPF Epi) [facility] [id number] 22:13:00 Test Item Value Reference Range Interpretation Comments UA WBC (test code = UA WBC) 22 <=5 [email or web address] [id number] 22:13:00 Test Item Value Reference Range Interpretation Comments ALT (test code = ALT) 21 See_Comment [Auto mated message] The system which ge nerated this result transmit cruz reference range : <=65. The reference range was not used to interpr et this result as gee l/abnormal. [email or web address] [id number] 22:13:00 Test Item Value Reference Range Interpretation Comments Albumin Lvl (test code = Albumin Lvl) 2.9 3.5-5.0 [facility]2017-06-12 22:13:00 Test Item Value Reference Range Interpretation Comments AST (test code = AST) 14 See_Comment [Auto mated message] The system which ge nerated this result transmit cruz reference range : <=37. The reference range was not used to interpr et this result as gee l/abnormal. [facility]2017-06-12 22:13:00 Test Item Value Reference Range Interpretation Comments Total Protein (test code = Total 7.8 6.4-8.4 Protein) [facility]2017-06-12 22:13:00 Test Item Value Reference Range Interpretation Comments Bili Total (test code = Bili Total) 0.2 0.2-1.3 [place] [id number] 22:13:00 Test Item Value Reference Range Interpretation Comments Alk Phos (test code = Alk Phos) 133 39-136 [facility]2017-06-12 22:13:00 Test Item Value Reference Range Interpretation Comments Globulin (test code = Globulin) 4.9 2.7-4.2 [facility]2017-06-12 22:13:00 Test Item Value Reference Range Interpretation Comments B/C Ratio (test code = B/C Ratio) 6 6-25 [facility]2017-06-12 22:13:00 Test Item Value Reference Range Interpretation Comments A/G Ratio (test code = A/G Ratio) 0.6 0.7-1.6 [id number] 22:13:00 Test Item Value Reference Range Interpretation Comments MPV (test code = MPV) 10.7 7.4-10.4 [place] [id number] 22:13:00 Test Item Value Reference Range Interpretation Comments MCV (test code = MCV) 89.4 80.0-94.0 [facility] TexasBncqhmmPPNRIKEKWQ1915-71-09 22:13:00 Test Item Value Reference Range Interpretation Comments MCHC (test code = MCHC) 33.0 32.0-36.0 [facility] [id number] 22:13:00 Test Item Value Reference Range Interpretation Comments RDW (test code = RDW) 13.0 11.5-14.5 [facility] [id number] 22:13:00 Test Item Value Reference Range Interpretation Comments MCH (test code = MCH) 29.5 pg 27.0-31.0 [facility] TexasUftjrrcDRZVZBWLJK7842-98-58 22:13:00 Test Item Value Reference Range Interpretation Comments Platelet (test code = Platelet) 231 133-450 [facility] Tex[id number] 22:13:00 Test Item Value Reference Range Interpretation Comments Hgb (test code = Hgb) 12.0 14.0-18.0 [id number] 22:13:00 Test Item Value Reference Range Interpretation Comments Hct (test code = Hct) 36.5 42.0-54.0 [id number] 22:13:00 Test Item Value Reference Range Interpretation Comments RBC (test code = RBC) 4.09 4.70-6.10 [facility] TexasEatguzdGOYMFNRRFK0984-10-69 22:13:00 Test Item Value Reference Range Interpretation Comments WBC (test code = WBC) 8.0 3.7-10.4 [facility] Tex[id number] 22:13:00 Test Item Value Reference Range Interpretation Comments Basophils # (test code 0.0 See_Comment [Aut omated message] The = Basophils #) system which generated this result tra nsmitted reference range : <=0.2. The reference r jillian was not used to int erpret this result as normal/abnormal . [facility] TexasFzhegstCCEJIWFMJK1537-44-03 22:13:00 Test Item Value Reference Range Interpretation Comments Lymphocytes # (test code = Lymphocytes 1.5 1.0-5.5 #) [facility]VrpqogmUNRSDFUBQX4224-81-30 22:13:00 Test Item Value Reference Range Interpretation Comments Segs-Bands # (test code = Segs-Bands #) 5.8 1.5-8.1 [facility] [id number] 22:13:00 Test Item Value Reference Range Interpretation Comments Eosinophils # (test code 0.2 See_Comment [A utomated message] The = Eosinophils #) system whic h generated this result tra nsmitted reference range : <=0.5. The reference r jillian was not used to int erpret this result as normal/abnormal . [facility] TexasBqpaixdHNZYYPVVCZ7695-14-38 22:13:00 Test Item Value Reference Range Interpretation Comments Monocytes # (test code 0.4 See_Comment [Aut omated message] The = Monocytes #) system which generated this result tra nsmitted reference range : <=0.8. The reference r jillian was not used to int erpret this result as normal/abnormal . [facility] [id number] 22:13:00 Test Item Value Reference Range Interpretation Comments Basophils (test code = 0.5 See_Comment [Aut omated message] The Basophils) system which ge nerated this result tra nsmitted reference range : <=1.0. The reference r jillian was not used to int erpret this result as normal/abnormal . [facility] [id number] 22:13:00 Test Item Value Reference Range Interpretation Comments Eosinophils (test code = 2.8 See_Comment [A utomated message] The Eosinophils) system which ge nerated this result tra nsmitted reference range : <=4.0. The reference r jillian was not used to int erpret this result as normal/abnormal . [facility] TexasFgfuczeTTAPSGYXZA8190-18-09 22:13:00 Test Item Value Reference Range Interpretation Comments Lymphocytes (test code = Lymphocytes) 19.0 20.0-40.0 [facility] TexasFgyyfesCHQLVCDPRV5449-25-08 22:13:00 Test Item Value Reference Range Interpretation Comments Monocytes (test code = Monocytes) 5.6 2.0-12.0 [facility] [id number] 22:13:00 Test Item Value Reference Range Interpretation Comments Segs (test code = Segs) 72.1 45.0-75.0 [facility]2017-06-12 22:13:00 Test Item Value Reference Range Interpretation Comments UA Spec Grav (test code = UA Spec Grav) 1.014 [facility]2017-06-12 22:13:00 Test Item Value Reference Range Interpretation Comments UA Urobilinogen (test code = UA <=1.0 mg/dL 0.1-1.0 Urobilinogen) [facility]2017-06-12 22:13:00 Test Item Value Reference Range Interpretation Comments UA Bili (test code = Negative *NA*(03/10/17 UA Bili) 5:13 PM) [facility] [id number] 22:13:00 Test Item Value Reference Range Interpretation Comments UA Ketones (test code = UA Negative mg/dL Ketones) [facility] [id number] 22:13:00 Test Item Value Reference Range Interpretation Comments UA Glucose (test code = UA Glucose) 50 mg/dL [facility] [id number] 22:13:00 Test Item Value Reference Range Interpretation Comments UA Blood (test code = Small *ABN*(03/10/17 UA Blood) 5:13 PM) [facility] [id number] 22:13:00 Test Item Value Reference Range Interpretation Comments UA Color (test code = Light Yellow UA Color) *NA*(03/10/17 5:13 PM) [facility] [id number] 22:13:00 Test Item Value Reference Range Interpretation Comments UA Mucus (test code = UA Mucus) Few /LPF [facility] [id number] 22:13:00 Test Item Value Reference Range Interpretation Comments UA RBC (test code = 27 See_Comment [Automa cruz message] The UA RBC) system which ge nerated this result transmit cruz reference range : <=2. The reference range was not used to interpr et this result as gee l/abnormal. [facility] [id number] 22:13:00 Test Item Value Reference Range Interpretation Comments UA Hyal Cast (test 1 See_Comment [Automat ed message] The code = UA Hyal Cast) system which generated this result transmit cruz reference range : <=2. The reference range was not used to interpr et this result as gee l/abnormal. [facility] [id number] 22:13:00 Test Item Value Reference Range Interpretation Comments UA Turbidity (test code = Clear (03/10/17 5:13 UA Turbidity) PM) [facility] [id number] 22:13:00 Test Item Value Reference Range Interpretation Comments UA Protein (test code = UA >=300 mg/dL Protein) [facility] [id number] 22:13:00 Test Item Value Reference Range Interpretation Comments UA pH (test code = UA pH) 6.0 5.0-8.0 [facility] [id number] 22:13:00 Test Item Value Reference Range Interpretation Comments UA Nitrite (test code Negative (03/10/17 5:13 = UA Nitrite) PM) [facility] [id number] 22:13:00 Test Item Value Reference Range Interpretation Comments UA Leuk Est (test code Trace *ABN*(03/10/17 = UA Leuk Est) 5:13 PM) [facility] [id number] 22:13:00 Test Item Value Reference Range Interpretation Comments UA Sq Epi (test code = UA Sq Occasional /LPF Epi) [facility] [id number] 22:13:00 Test Item Value Reference Range Interpretation Comments UA WBC (test code = 22 See_Comment [Automa cruz message] The UA WBC) system which ge nerated this result transmit cruz reference range : <=5. The reference range was not used to interpr et this result as gee l/abnormal. [facility] [id number] 22:13:00 Test Item Value Reference Range Interpretation Comments ALT (test code = ALT) [address] <=65 [facility] [id number] 22:13:00 Test Item Value Reference Range Interpretation Comments Albumin Lvl (test code = Albumin Lvl) 2.9 3.5-5.0 [email or web address] [id number] 22:13:00 Test Item Value Reference Range Interpretation Comments AST (test code = AST) 14 <=37 [facility] [id number] 22:13:00 Test Item Value Reference Range Interpretation Comments Total Protein (test code = Total 7.8 6.4-8.4 Protein) [facility]2017-06-12 22:13:00 Test Item Value Reference Range Interpretation Comments Bili Total (test code = Bili Total) 0.2 0.2-1.3 [email or web address] [id number] 22:13:00 Test Item Value Reference Range Interpretation Comments Alk Phos (test code = Alk Phos) 133 39-136 [email or web address] [id number] 22:13:00 Test Item Value Reference Range Interpretation Comments Globulin (test code = Globulin) 4.9 2.7-4.2 [facility]2017-06-12 22:13:00 Test Item Value Reference Range Interpretation Comments B/C Ratio (test code = B/C Ratio) 6 6-25 [facility]2017-06-12 22:13:00 Test Item Value Reference Range Interpretation Comments A/G Ratio (test code = A/G Ratio) 0.6 0.7-1.6 [facility]exvkzxMEGZZIINRM0651-71-26 22:13:00 Test Item Value Reference Range Interpretation Comments MPV (test code = MPV) 10.7 7.4-10.4 [facility]FyyxbwbJZSJIYJANW2039-57-61 22:13:00 Test Item Value Reference Range Interpretation Comments MCV (test code = MCV) 89.4 80.0-94.0 [facility]RqchpqbWLIXDEOLTW5729-83-35 22:13:00 Test Item Value Reference Range Interpretation Comments MCHC (test code = MCHC) 33.0 32.0-36.0 [facility]NhsgyzvLJRFVLEVDF0851-71-03 22:13:00 Test Item Value Reference Range Interpretation Comments RDW (test code = RDW) 13.0 11.5-14.5 [facility]EobhwxnPKKRVPRZMI7058-34-75 22:13:00 Test Item Value Reference Range Interpretation Comments MCH (test code = MCH) 29.5 pg 27.0-31.0 [facility] TexasAsikmsfFEBFDARWPM5793-72-97 22:13:00 Test Item Value Reference Range Interpretation Comments Platelet (test code = Platelet) 231 133-450 [facility]KtlhpsoOPBCXTSKJR7164-49-73 22:13:00 Test Item Value Reference Range Interpretation Comments Hgb (test code = Hgb) 12.0 14.0-18.0 [facility]IijznfaMVUDHPTXPB9583-52-09 22:13:00 Test Item Value Reference Range Interpretation Comments Hct (test code = Hct) 36.5 42.0-54.0 [facility]YheequyXACWNSTIXN9421-56-35 22:13:00 Test Item Value Reference Range Interpretation Comments RBC (test code = RBC) 4.09 4.70-6.10 [facility]VvtqgeaWJSFOWZDFQ1281-67-99 22:13:00 Test Item Value Reference Range Interpretation Comments WBC (test code = WBC) 8.0 3.7-10.4 [facility]VbwdteiKINKGHKWGG3430-19-74 22:13:00 Test Item Value Reference Range Interpretation Comments Basophils # (test code = Basophils #) 0.0 <=0.2 [facility]NvuhnfyWODYNVDJKV6584-28-41 22:13:00 Test Item Value Reference Range Interpretation Comments Lymphocytes # (test code = Lymphocytes 1.5 1.0-5.5 #) [facility]XaddmuwYWFBZNSLLE1841-22-54 22:13:00 Test Item Value Reference Range Interpretation Comments Segs-Bands # (test code = Segs-Bands #) 5.8 1.5-8.1 [facility]CojmrcvHLUIPRKHHF7979-52-51 22:13:00 Test Item Value Reference Range Interpretation Comments Eosinophils # (test code = Eosinophils 0.2 <=0.5 #) [facility] TexasGtfctbnPXLTXGEIHW3487-88-32 22:13:00 Test Item Value Reference Range Interpretation Comments Monocytes # (test code = Monocytes #) 0.4 <=0.8 [facility]OhewkhrCYKTHPULCE7604-15-29 22:13:00 Test Item Value Reference Range Interpretation Comments Basophils (test code = Basophils) 0.5 <=1.0 [facility] TexasHpcenbsOXXKGTSGUX6775-36-08 22:13:00 Test Item Value Reference Range Interpretation Comments Eosinophils (test code = Eosinophils) 2.8 <=4.0 [facility] TexasXaaahmxYOTJQHAKDJ6905-11-70 22:13:00 Test Item Value Reference Range Interpretation Comments Lymphocytes (test code = Lymphocytes) 19.0 20.0-40.0 [facility]PnumdmzIWZKAXIGMC6742-68-19 22:13:00 Test Item Value Reference Range Interpretation Comments Monocytes (test code = Monocytes) 5.6 2.0-12.0 [facility] TexasQlqkmgxOJNWVLYFMO9445-24-08 22:13:00 Test Item Value Reference Range Interpretation Comments Segs (test code = Segs) 72.1 45.0-75.0 [facility]2017-06-12 22:13:00 Test Item Value Reference Range Interpretation Comments UA Spec Grav (test code = UA Spec Grav) 1.014 [facility]2017-06-12 22:13:00 Test Item Value Reference Range Interpretation Comments UA Urobilinogen (test code = UA <=1.0 mg/dL 0.1-1.0 Urobilinogen) [facility] AND [id number] 22:13:00 Test Item Value Reference Range Interpretation Comments UA Bili (test code = Negative *NA*(03/10/17 UA Bili) 5:13 PM) [facility] AND [id number] 22:13:00 Test Item Value Reference Range Interpretation Comments UA Ketones (test code = UA Negative mg/dL Ketones) [facility] AND [id number] 22:13:00 Test Item Value Reference Range Interpretation Comments UA Glucose (test code = UA Glucose) 50 mg/dL [facility] AND [id number] 22:13:00 Test Item Value Reference Range Interpretation Comments UA Blood (test code = Small *ABN*(03/10/17 UA Blood) 5:13 PM) [facility] AND [id number] 22:13:00 Test Item Value Reference Range Interpretation Comments UA Color (test code = Light Yellow UA Color) *NA*(03/10/17 5:13 PM) [facility] AND [id number] 22:13:00 Test Item Value Reference Range Interpretation Comments UA Mucus (test code = UA Mucus) Few /LPF [facility] AND [id number] 22:13:00 Test Item Value Reference Range Interpretation Comments UA RBC (test code = UA RBC) 27 <=2 [facility] AND [id number] 22:13:00 Test Item Value Reference Range Interpretation Comments UA Hyal Cast (test code = UA Hyal Cast) 1 <=2 [facility] AND [id number] 22:13:00 Test Item Value Reference Range Interpretation Comments UA Turbidity (test code = Clear (03/10/17 5:13 UA Turbidity) PM) [facility] AND [id number] 22:13:00 Test Item Value Reference Range Interpretation Comments UA Protein (test code = UA >=300 mg/dL Protein) [facility] AND [id number] 22:13:00 Test Item Value Reference Range Interpretation Comments UA pH (test code = UA pH) 6.0 5.0-8.0 [facility] AND [id number] 22:13:00 Test Item Value Reference Range Interpretation Comments UA Nitrite (test code Negative (03/10/17 5:13 = UA Nitrite) PM) [facility] AND [id number] 22:13:00 Test Item Value Reference Range Interpretation Comments UA Leuk Est (test code Trace *ABN*(03/10/17 = UA Leuk Est) 5:13 PM) [facility] AND [id number] 22:13:00 Test Item Value Reference Range Interpretation Comments UA Sq Epi (test code = UA Sq Occasional /LPF Epi) [facility] AND [id number] 22:13:00 Test Item Value Reference Range Interpretation Comments UA WBC (test code = UA WBC) 22 <=5 [facility]2014-02-28 09:12:00 Test Item Value Reference Range Interpretation Comments BUN (test code = BUN) 21 7-22 [facility]2014-02-28 09:12:00 Test Item Value Reference Range Interpretation Comments Creatinine Lvl (test code = Creatinine 2.3 0.5-1.4 Lvl) [facility]2014-02-28 09:12:00 Test Item Value Reference Range Interpretation Comments Glucose Lvl (test code = Glucose Lvl) 128 70-99 [facility]2014-02-28 09:12:00 Test Item Value Reference Range Interpretation Comments Chloride Lvl (test code = Chloride Lvl) 111 95-109 [facility]2014-02-28 09:12:00 Test Item Value Reference Range Interpretation Comments CO2 (test code = CO2) 25 24-32 [facility]2014-02-28 09:12:00 Test Item Value Reference Range Interpretation Comments AGAP (test code = AGAP) 10.8 10.0-20.0 [facility]2014-02-28 09:12:00 Test Item Value Reference Range Interpretation Comments Potassium Lvl (test code = Potassium 3.8 3.5-5.1 Lvl) [facility]2014-02-28 09:12:00 Test Item Value Reference Range Interpretation Comments Sodium Lvl (test code = Sodium Lvl) 143 135-145 [facility]2014-02-28 09:12:00 Test Item Value Reference Range Interpretation Comments Calcium Lvl (test code = Calcium Lvl) 8.4 8.5-10.5 [facility]2014-02-28 09:12:00 Test Item Value Reference Range Interpretation Comments eGFR (test code = eGFR) 32 [facility]2014-02-28 09:12:00 Test Item Value Reference Range Interpretation Comments Magnesium Lvl (test code = Magnesium 2.1 1.8-2.4 Lvl) [id number] 09:12:00 Test Item Value Reference Range Interpretation Comments RBC X 10x6 (test code = RBC X 10x6) 4.66 4.70-6.10 [facility]XkfjtbsUVRRQYQIHZ0666-18-89 09:12:00 Test Item Value Reference Range Interpretation Comments Hct (test code = Hct) 42.3 42.0-54.0 [facility]PyjllkfQFWTDYOOAN4081-20-13 09:12:00 Test Item Value Reference Range Interpretation Comments MCH (test code = MCH) 30.0 pg 27.0-31.0 [facility]VekoyggWHCGTSDPFX1386-33-06 09:12:00 Test Item Value Reference Range Interpretation Comments MCV (test code = MCV) 90.8 80.0-94.0 [facility]EjmljmcGHYNVMIVSM9283-67-77 09:12:00 Test Item Value Reference Range Interpretation Comments Hgb (test code = Hgb) 14.0 14.0-18.0 [id number] 09:12:00 Test Item Value Reference Range Interpretation Comments RDW (test code = RDW) 15.2 11.5-14.5 [facility]RsanvqqOLYAJABNGC3385-67-91 09:12:00 Test Item Value Reference Range Interpretation Comments MCHC (test code = MCHC) 33.0 32.0-36.0 [facility]ChqvclvTOPSQPWVFC6837-70-74 09:12:00 Test Item Value Reference Range Interpretation Comments MPV (test code = MPV) 9.5 7.4-10.4 [facility] TexasWyoqrosPYKVEMMDPR9558-94-16 09:12:00 Test Item Value Reference Range Interpretation Comments Platelet (test code = Platelet) 231 133-450 [facility]IhwkjgbCAUBSOXRKO7468-44-01 09:12:00 Test Item Value Reference Range Interpretation Comments WBC X 10x3 (test code = WBC X 10x3) 11.8 3.7-10.4 [facility]2014-02-28 09:12:00 Test Item Value Reference Range Interpretation Comments BUN (test code = BUN) 21 7-22 [facility]2014-02-28 09:12:00 Test Item Value Reference Range Interpretation Comments Creatinine Lvl (test code = Creatinine 2.3 0.5-1.4 Lvl) [facility]2014-02-28 09:12:00 Test Item Value Reference Range Interpretation Comments Glucose Lvl (test code = Glucose Lvl) 128 70-99 [facility]2014-02-28 09:12:00 Test Item Value Reference Range Interpretation Comments Chloride Lvl (test code = Chloride Lvl) 111 95-109 [facility]2014-02-28 09:12:00 Test Item Value Reference Range Interpretation Comments CO2 (test code = CO2) 25 24-32 [facility]2014-02-28 09:12:00 Test Item Value Reference Range Interpretation Comments AGAP (test code = AGAP) 10.8 10.0-20.0 [facility]2014-02-28 09:12:00 Test Item Value Reference Range Interpretation Comments Potassium Lvl (test code = Potassium 3.8 3.5-5.1 Lvl) [facility]2014-02-28 09:12:00 Test Item Value Reference Range Interpretation Comments Sodium Lvl (test code = Sodium Lvl) 143 135-145 [facility]2014-02-28 09:12:00 Test Item Value Reference Range Interpretation Comments Calcium Lvl (test code = Calcium Lvl) 8.4 8.5-10.5 [facility]2014-02-28 09:12:00 Test Item Value Reference Range Interpretation Comments eGFR (test code = eGFR) 32 [facility]2014-02-28 09:12:00 Test Item Value Reference Range Interpretation Comments Magnesium Lvl (test code = Magnesium 2.1 1.8-2.4 Lvl) [id number] 09:12:00 Test Item Value Reference Range Interpretation Comments RBC X 10x6 (test code = RBC X 10x6) 4.66 4.70-6.10 [facility]MdcmrkgPYKKWOZTOC8672-48-48 09:12:00 Test Item Value Reference Range Interpretation Comments Hct (test code = Hct) 42.3 42.0-54.0 [facility] TexasTreebadHNLLGSBCES3777-50-37 09:12:00 Test Item Value Reference Range Interpretation Comments MCH (test code = MCH) 30.0 pg 27.0-31.0 [facility] TexasUozpkbtRRWJCNGAGL8546-67-24 09:12:00 Test Item Value Reference Range Interpretation Comments MCV (test code = MCV) 90.8 80.0-94.0 [facility]VifagqcUUHBFGPSUP6500-23-81 09:12:00 Test Item Value Reference Range Interpretation Comments Hgb (test code = Hgb) 14.0 14.0-18.0 [facility]RfowlqaZWQHEIKLGF7216-41-26 09:12:00 Test Item Value Reference Range Interpretation Comments RDW (test code = RDW) 15.2 11.5-14.5 [facility] TexasDbgtvcoFDSKVIURQJ8918-07-45 09:12:00 Test Item Value Reference Range Interpretation Comments MCHC (test code = MCHC) 33.0 32.0-36.0 [facility]AoepnthZAKLZSPFWH0555-96-74 09:12:00 Test Item Value Reference Range Interpretation Comments MPV (test code = MPV) 9.5 7.4-10.4 [facility]NkdopvxBEQKKQJIBV5641-02-95 09:12:00 Test Item Value Reference Range Interpretation Comments Platelet (test code = Platelet) 231 133-450 [facility] TexasRhebwixLAZLMOEISV5722-26-32 09:12:00 Test Item Value Reference Range Interpretation Comments WBC X 10x3 (test code = WBC X 10x3) 11.8 3.7-10.4 [facility]2014-02-28 09:12:00 Test Item Value Reference Range Interpretation Comments BUN (test code = BUN) 21 7-22 [facility]2014-02-28 09:12:00 Test Item Value Reference Range Interpretation Comments Creatinine Lvl (test code = Creatinine 2.3 0.5-1.4 Lvl) [facility]2014-02-28 09:12:00 Test Item Value Reference Range Interpretation Comments Glucose Lvl (test code = Glucose Lvl) 128 70-99 [facility]2014-02-28 09:12:00 Test Item Value Reference Range Interpretation Comments Chloride Lvl (test code = Chloride Lvl) 111 95-109 [facility]2014-02-28 09:12:00 Test Item Value Reference Range Interpretation Comments CO2 (test code = CO2) 25 24-32 [facility]2014-02-28 09:12:00 Test Item Value Reference Range Interpretation Comments AGAP (test code = AGAP) 10.8 10.0-20.0 [facility]2014-02-28 09:12:00 Test Item Value Reference Range Interpretation Comments Potassium Lvl (test code = Potassium 3.8 3.5-5.1 Lvl) [facility]2014-02-28 09:12:00 Test Item Value Reference Range Interpretation Comments Sodium Lvl (test code = Sodium Lvl) 143 135-145 [facility]2014-02-28 09:12:00 Test Item Value Reference Range Interpretation Comments Calcium Lvl (test code = Calcium Lvl) 8.4 8.5-10.5 [facility]2014-02-28 09:12:00 Test Item Value Reference Range Interpretation Comments eGFR (test code = eGFR) 32 [facility]2014-02-28 09:12:00 Test Item Value Reference Range Interpretation Comments Magnesium Lvl (test code = Magnesium 2.1 1.8-2.4 Lvl) [facility]EtcqtbaPUFVWSQUJI3486-82-97 09:12:00 Test Item Value Reference Range Interpretation Comments RBC X 10x6 (test code = RBC X 10x6) 4.66 4.70-6.10 [facility]IborofgIRFEPBKBJQ7682-94-18 09:12:00 Test Item Value Reference Range Interpretation Comments Hct (test code = Hct) 42.3 42.0-54.0 [facility]KhwwfxnJDNWAIIULM6623-38-34 09:12:00 Test Item Value Reference Range Interpretation Comments MCH (test code = MCH) 30.0 pg 27.0-31.0 [facility] TexasQqbaoufNYNEGLTNJG6709-31-81 09:12:00 Test Item Value Reference Range Interpretation Comments MCV (test code = MCV) 90.8 80.0-94.0 [facility]TbavhflKOTAQCKHEF8784-86-20 09:12:00 Test Item Value Reference Range Interpretation Comments Hgb (test code = Hgb) 14.0 14.0-18.0 [facility] TexasGlpzxkvUZIYNWZPFZ1419-80-13 09:12:00 Test Item Value Reference Range Interpretation Comments RDW (test code = RDW) 15.2 11.5-14.5 [facility] TexasJlpwdftGOUEWWKPZI6421-56-54 09:12:00 Test Item Value Reference Range Interpretation Comments MCHC (test code = MCHC) 33.0 32.0-36.0 [facility]IfeorkgOXABCAJCNI7269-14-76 09:12:00 Test Item Value Reference Range Interpretation Comments MPV (test code = MPV) 9.5 7.4-10.4 [facility]PlbrvveXSPCROMFZI5797-07-04 09:12:00 Test Item Value Reference Range Interpretation Comments Platelet (test code = Platelet) 231 133-450 [facility]UsofzlmVOLUSMFLFN6010-16-75 09:12:00 Test Item Value Reference Range Interpretation Comments WBC X 10x3 (test code = WBC X 10x3) 11.8 3.7-10.4 [facility]2014-02-28 09:12:00 Test Item Value Reference Range Interpretation Comments BUN (test code = BUN) 21 7-22 [facility]2014-02-28 09:12:00 Test Item Value Reference Range Interpretation Comments Creatinine Lvl (test code = Creatinine 2.3 0.5-1.4 Lvl) [facility]2014-02-28 09:12:00 Test Item Value Reference Range Interpretation Comments Glucose Lvl (test code = Glucose Lvl) 128 70-99 [facility]2014-02-28 09:12:00 Test Item Value Reference Range Interpretation Comments Chloride Lvl (test code = Chloride Lvl) 111 95-109 [facility]2014-02-28 09:12:00 Test Item Value Reference Range Interpretation Comments CO2 (test code = CO2) 25 24-32 [facility]2014-02-28 09:12:00 Test Item Value Reference Range Interpretation Comments AGAP (test code = AGAP) 10.8 10.0-20.0 [facility]2014-02-28 09:12:00 Test Item Value Reference Range Interpretation Comments Potassium Lvl (test code = Potassium 3.8 3.5-5.1 Lvl) [facility]2014-02-28 09:12:00 Test Item Value Reference Range Interpretation Comments Sodium Lvl (test code = Sodium Lvl) 143 135-145 [facility]2014-02-28 09:12:00 Test Item Value Reference Range Interpretation Comments Calcium Lvl (test code = Calcium Lvl) 8.4 8.5-10.5 [facility] [id number] 09:12:00 Test Item Value Reference Range Interpretation Comments eGFR (test code = eGFR) 32 [facility] [id number] 09:12:00 Test Item Value Reference Range Interpretation Comments Magnesium Lvl (test code = Magnesium 2.1 1.8-2.4 Lvl) [facility]HlvczowTVCRHRFEYK7669-91-81 09:12:00 Test Item Value Reference Range Interpretation Comments RBC X 10x6 (test code = RBC X 10x6) 4.66 4.70-6.10 [facility]IskzfxzYOMGJSIANG6879-85-34 09:12:00 Test Item Value Reference Range Interpretation Comments Hct (test code = Hct) 42.3 42.0-54.0 [facility]VuhvkpaOZBAROHCZL7249-19-56 09:12:00 Test Item Value Reference Range Interpretation Comments MCH (test code = MCH) 30.0 pg 27.0-31.0 [facility] TexasJzmfsvzPBXUNJJJVL7950-09-61 09:12:00 Test Item Value Reference Range Interpretation Comments MCV (test code = MCV) 90.8 80.0-94.0 [facility]KrjshliVKLGMOEJDQ5277-37-95 09:12:00 Test Item Value Reference Range Interpretation Comments Hgb (test code = Hgb) 14.0 14.0-18.0 [facility]HfwlzjbLGSBNXBECK9809-02-27 09:12:00 Test Item Value Reference Range Interpretation Comments RDW (test code = RDW) 15.2 11.5-14.5 [facility]XzmyohtKONWWWCTBH5478-68-50 09:12:00 Test Item Value Reference Range Interpretation Comments MCHC (test code = MCHC) 33.0 32.0-36.0 [facility] TexasUurnykrHXMWAWLONY6303-15-59 09:12:00 Test Item Value Reference Range Interpretation Comments MPV (test code = MPV) 9.5 7.4-10.4 [facility] TexasGrzeupoFFHDJUNUTJ9645-68-53 09:12:00 Test Item Value Reference Range Interpretation Comments Platelet (test code = Platelet) 231 133-450 [facility] TexasKyhhavmEUQUBNRLBC1123-76-22 09:12:00 Test Item Value Reference Range Interpretation Comments WBC X 10x3 (test code = WBC X 10x3) 11.8 3.7-10.4 [facility]2014-02-28 09:12:00 Test Item Value Reference Range Interpretation Comments BUN (test code = BUN) 21 7-22 [facility]2014-02-28 09:12:00 Test Item Value Reference Range Interpretation Comments Creatinine Lvl (test code = Creatinine 2.3 0.5-1.4 Lvl) [facility]2014-02-28 09:12:00 Test Item Value Reference Range Interpretation Comments Glucose Lvl (test code = Glucose Lvl) 128 70-99 [facility]2014-02-28 09:12:00 Test Item Value Reference Range Interpretation Comments Chloride Lvl (test code = Chloride Lvl) 111 95-109 [facility]2014-02-28 09:12:00 Test Item Value Reference Range Interpretation Comments CO2 (test code = CO2) 25 24-32 [facility]2014-02-28 09:12:00 Test Item Value Reference Range Interpretation Comments AGAP (test code = AGAP) 10.8 10.0-20.0 [facility]2014-02-28 09:12:00 Test Item Value Reference Range Interpretation Comments Potassium Lvl (test code = Potassium 3.8 3.5-5.1 Lvl) [facility]2014-02-28 09:12:00 Test Item Value Reference Range Interpretation Comments Sodium Lvl (test code = Sodium Lvl) 143 135-145 [facility]2014-02-28 09:12:00 Test Item Value Reference Range Interpretation Comments Calcium Lvl (test code = Calcium Lvl) 8.4 8.5-10.5 [facility]2014-02-28 09:12:00 Test Item Value Reference Range Interpretation Comments eGFR (test code = eGFR) 32 [facility]2014-02-28 09:12:00 Test Item Value Reference Range Interpretation Comments Magnesium Lvl (test code = Magnesium 2.1 1.8-2.4 Lvl) [facility]QxisvrjSOBLYCCASA5683-51-29 09:12:00 Test Item Value Reference Range Interpretation Comments RBC X 10x6 (test code = RBC X 10x6) 4.66 4.70-6.10 [facility]EwfouhqYAREDVCJIS7509-28-44 09:12:00 Test Item Value Reference Range Interpretation Comments Hct (test code = Hct) 42.3 42.0-54.0 [facility]SrbwuybSILZYZMRWV0244-51-16 09:12:00 Test Item Value Reference Range Interpretation Comments MCH (test code = MCH) 30.0 pg 27.0-31.0 [facility]PnvnbxlQBTVNZZGJZ8804-73-95 09:12:00 Test Item Value Reference Range Interpretation Comments MCV (test code = MCV) 90.8 80.0-94.0 [facility] TexasWoexaxnXTRTFAWCCG2535-15-97 09:12:00 Test Item Value Reference Range Interpretation Comments Hgb (test code = Hgb) 14.0 14.0-18.0 [facility] TexasRafclqrDQNOTGCMJR0316-38-49 09:12:00 Test Item Value Reference Range Interpretation Comments RDW (test code = RDW) 15.2 11.5-14.5 [facility] [place]AxskruaBEKQSTTDTG8866-43-64 09:12:00 Test Item Value Reference Range Interpretation Comments MCHC (test code = MCHC) 33.0 32.0-36.0 [facility] TexasGpxgnpsOAIVEKFPSJ2628-34-32 09:12:00 Test Item Value Reference Range Interpretation Comments MPV (test code = MPV) 9.5 7.4-10.4 [facility]rm[facility]lsWSRAPTJZRT2187-26-17 09:12:00 Test Item Value Reference Range Interpretation Comments Platelet (test code = Platelet) 231 133-450 [facility]YebjwkzGMHZFZYHFU0756-55-61 09:12:00 Test Item Value Reference Range Interpretation Comments WBC X 10x3 (test code = WBC X 10x3) 11.8 3.7-10.4 [facility]2014-02-28 09:12:00 Test Item Value Reference Range Interpretation Comments BUN (test code = BUN) 21 7-22 [facility]2014-02-28 09:12:00 Test Item Value Reference Range Interpretation Comments Creatinine Lvl (test code = Creatinine 2.3 0.5-1.4 Lvl) [facility]2014-02-28 09:12:00 Test Item Value Reference Range Interpretation Comments Glucose Lvl (test code = Glucose Lvl) 128 70-99 [facility]2014-02-28 09:12:00 Test Item Value Reference Range Interpretation Comments Chloride Lvl (test code = Chloride Lvl) 111 95-109 [facility]2014-02-28 09:12:00 Test Item Value Reference Range Interpretation Comments CO2 (test code = CO2) 25 24-32 [facility]2014-02-28 09:12:00 Test Item Value Reference Range Interpretation Comments AGAP (test code = AGAP) 10.8 10.0-20.0 [facility]2014-02-28 09:12:00 Test Item Value Reference Range Interpretation Comments Potassium Lvl (test code = Potassium 3.8 3.5-5.1 Lvl) [facility]2014-02-28 09:12:00 Test Item Value Reference Range Interpretation Comments Sodium Lvl (test code = Sodium Lvl) 143 135-145 [facility]2014-02-28 09:12:00 Test Item Value Reference Range Interpretation Comments Calcium Lvl (test code = Calcium Lvl) 8.4 8.5-10.5 [facility]2014-02-28 09:12:00 Test Item Value Reference Range Interpretation Comments eGFR (test code = eGFR) 32 [facility]2014-02-28 09:12:00 Test Item Value Reference Range Interpretation Comments Magnesium Lvl (test code = Magnesium 2.1 1.8-2.4 Lvl) [facility]FrtvpkgJDYUYWWLEL5817-33-71 09:12:00 Test Item Value Reference Range Interpretation Comments RBC X 10x6 (test code = RBC X 10x6) 4.66 4.70-6.10 [facility]AbmnptmKXYRGDKUFD1728-92-67 09:12:00 Test Item Value Reference Range Interpretation Comments Hct (test code = Hct) 42.3 42.0-54.0 [facility]WsgztjfVHMTECNYCC9042-87-72 09:12:00 Test Item Value Reference Range Interpretation Comments MCH (test code = MCH) 30.0 pg 27.0-31.0 [facility]OmduwslOOVEIEITJX7875-05-14 09:12:00 Test Item Value Reference Range Interpretation Comments MCV (test code = MCV) 90.8 80.0-94.0 [facility]GttbrirFWNYWMDLXZ2174-48-90 09:12:00 Test Item Value Reference Range Interpretation Comments Hgb (test code = Hgb) 14.0 14.0-18.0 [facility]JwnghgtCBBNWTVHPH6290-03-73 09:12:00 Test Item Value Reference Range Interpretation Comments RDW (test code = RDW) 15.2 11.5-14.5 [facility]YaxfgrzGEVYPRYQIF3333-75-10 09:12:00 Test Item Value Reference Range Interpretation Comments MCHC (test code = MCHC) 33.0 32.0-36.0 [facility]TixytfuLUGDUXCIUA6686-35-63 09:12:00 Test Item Value Reference Range Interpretation Comments MPV (test code = MPV) 9.5 7.4-10.4 [facility]EdkbaoqJKWERUZHHH9885-59-03 09:12:00 Test Item Value Reference Range Interpretation Comments Platelet (test code = Platelet) 231 133-450 [facility]XqlztkzNGRHCJFFTU6812-62-95 09:12:00 Test Item Value Reference Range Interpretation Comments WBC X 10x3 (test code = WBC X 10x3) 11.8 3.7-10.4 [facility]2014-02-27 08:27:00 Test Item Value Reference Range Interpretation Comments Magnesium Lvl (test code = Magnesium 1.8 1.8-2.4 Lvl) [facility]2014-02-27 08:27:00 Test Item Value Reference Range Interpretation Comments eGFR (test code = eGFR) 38 [facility]2014-02-27 08:27:00 Test Item Value Reference Range Interpretation Comments AGAP (test code = AGAP) 11.6 10.0-20.0 [facility]2014-02-27 08:27:00 Test Item Value Reference Range Interpretation Comments Calcium Lvl (test code = Calcium Lvl) 8.5 8.5-10.5 [facility]2014-02-27 08:27:00 Test Item Value Reference Range Interpretation Comments Potassium Lvl (test code = Potassium 3.6 3.5-5.1 Lvl) [facility]2014-02-27 08:27:00 Test Item Value Reference Range Interpretation Comments Sodium Lvl (test code = Sodium Lvl) 142 135-145 [facility]2014-02-27 08:27:00 Test Item Value Reference Range Interpretation Comments Chloride Lvl (test code = Chloride Lvl) 111 95-109 [facility]2014-02-27 08:27:00 Test Item Value Reference Range Interpretation Comments CO2 (test code = CO2) 23 24-32 [facility]2014-02-27 08:27:00 Test Item Value Reference Range Interpretation Comments Creatinine Lvl (test code = Creatinine 2.0 0.5-1.4 Lvl) [facility]2014-02-27 08:27:00 Test Item Value Reference Range Interpretation Comments BUN (test code = BUN) 17 7-22 [facility]2014-02-27 08:27:00 Test Item Value Reference Range Interpretation Comments Glucose Lvl (test code = Glucose Lvl) 125 70-99 [facility]GqcitubDOLVGYNEXZ4423-71-28 08:27:00 Test Item Value Reference Range Interpretation Comments Hgb (test code = Hgb) 13.9 14.0-18.0 [facility]FtutnxkQGFMANVYNK4749-12-91 08:27:00 Test Item Value Reference Range Interpretation Comments WBC X 10x3 (test code = WBC X 10x3) 12.2 3.7-10.4 [facility]YgxpsyaGNYNFVFZDF0341-54-25 08:27:00 Test Item Value Reference Range Interpretation Comments Hct (test code = Hct) 41.8 42.0-54.0 [facility]KvxaqjyROMAGQZVGK4137-47-73 08:27:00 Test Item Value Reference Range Interpretation Comments MCV (test code = MCV) 90.7 80.0-94.0 [facility]KpkqnwpZDJQKSYROX7110-49-25 08:27:00 Test Item Value Reference Range Interpretation Comments MCH (test code = MCH) 30.2 pg 27.0-31.0 [facility]XmsbloaMQLBARCPEC7345-67-26 08:27:00 Test Item Value Reference Range Interpretation Comments MCHC (test code = MCHC) 33.3 32.0-36.0 [facility]IqnqlgqQJMPKCVAGE5825-17-55 08:27:00 Test Item Value Reference Range Interpretation Comments RBC X 10x6 (test code = RBC X 10x6) 4.61 4.70-6.10 [facility]ZovbhseFFBGDTQVQI0281-82-31 08:27:00 Test Item Value Reference Range Interpretation Comments Platelet (test code = Platelet) 209 133-450 [facility]SpzxwiaSEIFJTKCUV8571-70-92 08:27:00 Test Item Value Reference Range Interpretation Comments RDW (test code = RDW) 15.4 11.5-14.5 [facility]XdlmevmZGPMUEIRCF6680-37-17 08:27:00 Test Item Value Reference Range Interpretation Comments MPV (test code = MPV) 9.7 7.4-10.4 [place] 998084-02-27 08:27:00 Test Item Value Reference Range Interpretation Comments Magnesium Lvl (test code = Magnesium 1.8 1.8-2.4 Lvl) [facility]2014-02-27 08:27:00 Test Item Value Reference Range Interpretation Comments eGFR (test code = eGFR) 38 [facility]2014-02-27 08:27:00 Test Item Value Reference Range Interpretation Comments AGAP (test code = AGAP) 11.6 10.0-20.0 [place] 998084-02-27 08:27:00 Test Item Value Reference Range Interpretation Comments Calcium Lvl (test code = Calcium Lvl) 8.5 8.5-10.5 [place] 998084-02-27 08:27:00 Test Item Value Reference Range Interpretation Comments Potassium Lvl (test code = Potassium 3.6 3.5-5.1 Lvl) [facility]2014-02-27 08:27:00 Test Item Value Reference Range Interpretation Comments Sodium Lvl (test code = Sodium Lvl) 142 135-145 [facility]2014-02-27 08:27:00 Test Item Value Reference Range Interpretation Comments Chloride Lvl (test code = Chloride Lvl) 111 95-109 [place] 998084-02-27 08:27:00 Test Item Value Reference Range Interpretation Comments CO2 (test code = CO2) 23 24-32 [place] 998084-02-27 08:27:00 Test Item Value Reference Range Interpretation Comments Creatinine Lvl (test code = Creatinine 2.0 0.5-1.4 Lvl) [facility]2014-02-27 08:27:00 Test Item Value Reference Range Interpretation Comments BUN (test code = BUN) 17 7-22 [place] 998084-02-27 08:27:00 Test Item Value Reference Range Interpretation Comments Glucose Lvl (test code = Glucose Lvl) 125 70-99 [place] 425574-02-27 08:27:00 Test Item Value Reference Range Interpretation Comments Hgb (test code = Hgb) 13.9 14.0-18.0 [facility]AspfafsHSJPJCDYJZ4915-45-31 08:27:00 Test Item Value Reference Range Interpretation Comments WBC X 10x3 (test code = WBC X 10x3) 12.2 3.7-10.4 [facility]JjvflzwCAZPGFIFEZ2292-57-07 08:27:00 Test Item Value Reference Range Interpretation Comments Hct (test code = Hct) 41.8 42.0-54.0 [facility]ZdddsujMTWKLSUQSC8150-08-70 08:27:00 Test Item Value Reference Range Interpretation Comments MCV (test code = MCV) 90.7 80.0-94.0 [facility] [place]GsydnxxQXXDVWLDXE6006-33-24 08:27:00 Test Item Value Reference Range Interpretation Comments MCH (test code = MCH) 30.2 pg 27.0-31.0 [facility]RrtxyamYPGBJRQERD8443-40-72 08:27:00 Test Item Value Reference Range Interpretation Comments MCHC (test code = MCHC) 33.3 32.0-36.0 [facility]FfvnazmAXQYSGYRWB1508-85-06 08:27:00 Test Item Value Reference Range Interpretation Comments RBC X 10x6 (test code = RBC X 10x6) 4.61 4.70-6.10 [facility]JujdntxGTMPPIFEIA6876-06-23 08:27:00 Test Item Value Reference Range Interpretation Comments Platelet (test code = Platelet) 209 133-450 [facility]GjzktpyGMVQYEPVFW5811-12-85 08:27:00 Test Item Value Reference Range Interpretation Comments RDW (test code = RDW) 15.4 11.5-14.5 [facility]YywbeavNZMHWEUWNT8871-04-37 08:27:00 Test Item Value Reference Range Interpretation Comments MPV (test code = MPV) 9.7 7.4-10.4 [facility]2014-02-27 08:27:00 Test Item Value Reference Range Interpretation Comments Magnesium Lvl (test code = Magnesium 1.8 1.8-2.4 Lvl) [facility]2014-02-27 08:27:00 Test Item Value Reference Range Interpretation Comments eGFR (test code = eGFR) 38 [facility]2014-02-27 08:27:00 Test Item Value Reference Range Interpretation Comments AGAP (test code = AGAP) 11.6 10.0-20.0 [facility]2014-02-27 08:27:00 Test Item Value Reference Range Interpretation Comments Calcium Lvl (test code = Calcium Lvl) 8.5 8.5-10.5 [facility]2014-02-27 08:27:00 Test Item Value Reference Range Interpretation Comments Potassium Lvl (test code = Potassium 3.6 3.5-5.1 Lvl) [facility]2014-02-27 08:27:00 Test Item Value Reference Range Interpretation Comments Sodium Lvl (test code = Sodium Lvl) 142 135-145 [place] 998084-02-27 08:27:00 Test Item Value Reference Range Interpretation Comments Chloride Lvl (test code = Chloride Lvl) 111 95-109 [facility]2014-02-27 08:27:00 Test Item Value Reference Range Interpretation Comments CO2 (test code = CO2) 23 24-32 [place] 998084-02-27 08:27:00 Test Item Value Reference Range Interpretation Comments Creatinine Lvl (test code = Creatinine 2.0 0.5-1.4 Lvl) [facility]2014-02-27 08:27:00 Test Item Value Reference Range Interpretation Comments BUN (test code = BUN) 17 7-22 [facility]2014-02-27 08:27:00 Test Item Value Reference Range Interpretation Comments Glucose Lvl (test code = Glucose Lvl) 125 70-99 [facility]KusllwcZWSJFIUCDT9917-13-47 08:27:00 Test Item Value Reference Range Interpretation Comments Hgb (test code = Hgb) 13.9 14.0-18.0 [facility]MuliextVKNPUGEDCA6044-25-49 08:27:00 Test Item Value Reference Range Interpretation Comments WBC X 10x3 (test code = WBC X 10x3) 12.2 3.7-10.4 [facility]KlzzghvRQBAEGOIUT1045-19-62 08:27:00 Test Item Value Reference Range Interpretation Comments Hct (test code = Hct) 41.8 42.0-54.0 [place] 425574-02-27 08:27:00 Test Item Value Reference Range Interpretation Comments MCV (test code = MCV) 90.7 80.0-94.0 [place] 425574-02-27 08:27:00 Test Item Value Reference Range Interpretation Comments MCH (test code = MCH) 30.2 pg 27.0-31.0 [facility]UhneuvzKDKBXFFJSH2695-18-99 08:27:00 Test Item Value Reference Range Interpretation Comments MCHC (test code = MCHC) 33.3 32.0-36.0 [facility]WadegslSGLSXLYZDP3709-94-87 08:27:00 Test Item Value Reference Range Interpretation Comments RBC X 10x6 (test code = RBC X 10x6) 4.61 4.70-6.10 [facility]ZusjsyjBXXOEGCZAA9897-40-81 08:27:00 Test Item Value Reference Range Interpretation Comments Platelet (test code = Platelet) 209 133-450 [facility]WhhvsuoEQWDJYGGMB5087-58-86 08:27:00 Test Item Value Reference Range Interpretation Comments RDW (test code = RDW) 15.4 11.5-14.5 [facility]PgjvhvgXSBIZDHRHM2073-21-97 08:27:00 Test Item Value Reference Range Interpretation Comments MPV (test code = MPV) 9.7 7.4-10.4 [facility]2014-02-27 08:27:00 Test Item Value Reference Range Interpretation Comments Magnesium Lvl (test code = Magnesium 1.8 1.8-2.4 Lvl) [facility]2014-02-27 08:27:00 Test Item Value Reference Range Interpretation Comments eGFR (test code = eGFR) 38 [facility]2014-02-27 08:27:00 Test Item Value Reference Range Interpretation Comments AGAP (test code = AGAP) 11.6 10.0-20.0 [facility]2014-02-27 08:27:00 Test Item Value Reference Range Interpretation Comments Calcium Lvl (test code = Calcium Lvl) 8.5 8.5-10.5 [facility]2014-02-27 08:27:00 Test Item Value Reference Range Interpretation Comments Potassium Lvl (test code = Potassium 3.6 3.5-5.1 Lvl) [facility]2014-02-27 08:27:00 Test Item Value Reference Range Interpretation Comments Sodium Lvl (test code = Sodium Lvl) 142 135-145 [facility]2014-02-27 08:27:00 Test Item Value Reference Range Interpretation Comments Chloride Lvl (test code = Chloride Lvl) 111 95-109 [facility]2014-02-27 08:27:00 Test Item Value Reference Range Interpretation Comments CO2 (test code = CO2) 23 24-32 [facility]2014-02-27 08:27:00 Test Item Value Reference Range Interpretation Comments Creatinine Lvl (test code = Creatinine 2.0 0.5-1.4 Lvl) [facility]2014-02-27 08:27:00 Test Item Value Reference Range Interpretation Comments BUN (test code = BUN) 17 7-22 [facility]2014-02-27 08:27:00 Test Item Value Reference Range Interpretation Comments Glucose Lvl (test code = Glucose Lvl) 125 70-99 [facility]QtjnhxiLCCFUZXQTH2999-08-88 08:27:00 Test Item Value Reference Range Interpretation Comments Hgb (test code = Hgb) 13.9 14.0-18.0 [facility]WgqkbaqILOIGYIIBG7368-84-95 08:27:00 Test Item Value Reference Range Interpretation Comments WBC X 10x3 (test code = WBC X 10x3) 12.2 3.7-10.4 [facility]WhnomnvJXOFYIYLCW5144-82-39 08:27:00 Test Item Value Reference Range Interpretation Comments Hct (test code = Hct) 41.8 42.0-54.0 [facility]QgdrghwWHTWKTTLOZ9556-33-68 08:27:00 Test Item Value Reference Range Interpretation Comments MCV (test code = MCV) 90.7 80.0-94.0 [facility]FqlcaseTVABKOPHLH0755-12-14 08:27:00 Test Item Value Reference Range Interpretation Comments MCH (test code = MCH) 30.2 pg 27.0-31.0 [facility]PnhrcmsASPNTCIAOC4740-63-45 08:27:00 Test Item Value Reference Range Interpretation Comments MCHC (test code = MCHC) 33.3 32.0-36.0 [facility]JxvjjyuBTMFIUHUPC9183-73-49 08:27:00 Test Item Value Reference Range Interpretation Comments RBC X 10x6 (test code = RBC X 10x6) 4.61 4.70-6.10 [facility]GvvcjpeTMLBIWCKZO8359-77-18 08:27:00 Test Item Value Reference Range Interpretation Comments Platelet (test code = Platelet) 209 133-450 [place] 425574-02-27 08:27:00 Test Item Value Reference Range Interpretation Comments RDW (test code = RDW) 15.4 11.5-14.5 [facility]NzhmlvgEHLCFHOGNT0773-21-31 08:27:00 Test Item Value Reference Range Interpretation Comments MPV (test code = MPV) 9.7 7.4-10.4 [facility]2014-02-27 08:27:00 Test Item Value Reference Range Interpretation Comments Magnesium Lvl (test code = Magnesium 1.8 1.8-2.4 Lvl) [facility]2014-02-27 08:27:00 Test Item Value Reference Range Interpretation Comments eGFR (test code = eGFR) 38 [facility]2014-02-27 08:27:00 Test Item Value Reference Range Interpretation Comments AGAP (test code = AGAP) 11.6 10.0-20.0 [facility]2014-02-27 08:27:00 Test Item Value Reference Range Interpretation Comments Calcium Lvl (test code = Calcium Lvl) 8.5 8.5-10.5 [facility]2014-02-27 08:27:00 Test Item Value Reference Range Interpretation Comments Potassium Lvl (test code = Potassium 3.6 3.5-5.1 Lvl) [facility]2014-02-27 08:27:00 Test Item Value Reference Range Interpretation Comments Sodium Lvl (test code = Sodium Lvl) 142 135-145 [facility]2014-02-27 08:27:00 Test Item Value Reference Range Interpretation Comments Chloride Lvl (test code = Chloride Lvl) 111 95-109 [facility]2014-02-27 08:27:00 Test Item Value Reference Range Interpretation Comments CO2 (test code = CO2) 23 24-32 [facility]2014-02-27 08:27:00 Test Item Value Reference Range Interpretation Comments Creatinine Lvl (test code = Creatinine 2.0 0.5-1.4 Lvl) [facility]2014-02-27 08:27:00 Test Item Value Reference Range Interpretation Comments BUN (test code = BUN) 17 7-22 [facility]2014-02-27 08:27:00 Test Item Value Reference Range Interpretation Comments Glucose Lvl (test code = Glucose Lvl) 125 70-99 [facility]VckjgngQNOLTFFXXT5079-62-63 08:27:00 Test Item Value Reference Range Interpretation Comments Hgb (test code = Hgb) 13.9 14.0-18.0 [facility]QceskxtOMIXMVNQUG8439-63-56 08:27:00 Test Item Value Reference Range Interpretation Comments WBC X 10x3 (test code = WBC X 10x3) 12.2 3.7-10.4 [facility] TexasXigidonVHTDPKRICT1938-01-62 08:27:00 Test Item Value Reference Range Interpretation Comments Hct (test code = Hct) 41.8 42.0-54.0 [facility]QqjwergCOYFBRYMIP0173-59-01 08:27:00 Test Item Value Reference Range Interpretation Comments MCV (test code = MCV) 90.7 80.0-94.0 [facility]XsfumyjRHKBQHQWRE4659-41-41 08:27:00 Test Item Value Reference Range Interpretation Comments MCH (test code = MCH) 30.2 pg 27.0-31.0 [facility]OhfkncqWIIMKTHBXA6468-62-12 08:27:00 Test Item Value Reference Range Interpretation Comments MCHC (test code = MCHC) 33.3 32.0-36.0 [facility]YhoiidwGMBGJEFUQV6404-44-32 08:27:00 Test Item Value Reference Range Interpretation Comments RBC X 10x6 (test code = RBC X 10x6) 4.61 4.70-6.10 [facility]ZltckacNYZRIRCCWO9386-04-98 08:27:00 Test Item Value Reference Range Interpretation Comments Platelet (test code = Platelet) 209 133-450 [facility]TllqlkpKXMXMRNAVK5984-68-35 08:27:00 Test Item Value Reference Range Interpretation Comments RDW (test code = RDW) 15.4 11.5-14.5 [facility]VqzpjpbLKYKVBFBRM9369-49-82 08:27:00 Test Item Value Reference Range Interpretation Comments MPV (test code = MPV) 9.7 7.4-10.4 [facility]2014-02-27 08:27:00 Test Item Value Reference Range Interpretation Comments Magnesium Lvl (test code = Magnesium 1.8 1.8-2.4 Lvl) [facility]2014-02-27 08:27:00 Test Item Value Reference Range Interpretation Comments eGFR (test code = eGFR) 38 [facility]2014-02-27 08:27:00 Test Item Value Reference Range Interpretation Comments AGAP (test code = AGAP) 11.6 10.0-20.0 [facility]2014-02-27 08:27:00 Test Item Value Reference Range Interpretation Comments Calcium Lvl (test code = Calcium Lvl) 8.5 8.5-10.5 [facility]2014-02-27 08:27:00 Test Item Value Reference Range Interpretation Comments Potassium Lvl (test code = Potassium 3.6 3.5-5.1 Lvl) [facility]2014-02-27 08:27:00 Test Item Value Reference Range Interpretation Comments Sodium Lvl (test code = Sodium Lvl) 142 135-145 [facility]2014-02-27 08:27:00 Test Item Value Reference Range Interpretation Comments Chloride Lvl (test code = Chloride Lvl) 111 95-109 [facility]2014-02-27 08:27:00 Test Item Value Reference Range Interpretation Comments CO2 (test code = CO2) 23 24-32 [facility]2014-02-27 08:27:00 Test Item Value Reference Range Interpretation Comments Creatinine Lvl (test code = Creatinine 2.0 0.5-1.4 Lvl) [facility]2014-02-27 08:27:00 Test Item Value Reference Range Interpretation Comments BUN (test code = BUN) 17 7-22 [facility]2014-02-27 08:27:00 Test Item Value Reference Range Interpretation Comments Glucose Lvl (test code = Glucose Lvl) 125 70-99 [facility]HepvcvqJPHFOPDXUC4711-96-54 08:27:00 Test Item Value Reference Range Interpretation Comments Hgb (test code = Hgb) 13.9 14.0-18.0 [facility]ZoloryqXAAEELPRLE6373-73-43 08:27:00 Test Item Value Reference Range Interpretation Comments WBC X 10x3 (test code = WBC X 10x3) 12.2 3.7-10.4 [facility] [place]19[place]61 08:27:00 Test Item Value Reference Range Interpretation Comments Hct (test code = Hct) 41.8 42.0-54.0 [facility]DrvkpxiSLSONJQZPY1534-98-27 08:27:00 Test Item Value Reference Range Interpretation Comments MCV (test code = MCV) 90.7 80.0-94.0 [facility] [place]FdjegwkRQMEFEXIEG9223-64-93 08:27:00 Test Item Value Reference Range Interpretation Comments MCH (test code = MCH) 30.2 pg 27.0-31.0 [facility] [place]PjijsebPAFSZJQPTB3055-01-19 08:27:00 Test Item Value Reference Range Interpretation Comments MCHC (test code = MCHC) 33.3 32.0-36.0 [facility] [place]JitgunyMKJYYIJCNA3456-60-24 08:27:00 Test Item Value Reference Range Interpretation Comments RBC X 10x6 (test code = RBC X 10x6) 4.61 4.70-6.10 [facility] [place]OqztwhnFETBMSJBHZ9576-92-35 08:27:00 Test Item Value Reference Range Interpretation Comments Platelet (test code = Platelet) 209 133-450 [facility] [place]FijvgmoLLCTBUMJDO6381-91-62 08:27:00 Test Item Value Reference Range Interpretation Comments RDW (test code = RDW) 15.4 11.5-14.5 [facility] [place]EmjraadICOKNHFYXQ5958-98-40 08:27:00 Test Item Value Reference Range Interpretation Comments MPV (test code = MPV) 9.7 7.4-10.4 [facility]2014-02-26 18:49:00 Test Item Value Reference Range Interpretation Comments Calcium Lvl (test code = Calcium Lvl) 8.2 8.5-10.5 [facility]2014-02-26 18:49:00 Test Item Value Reference Range Interpretation Comments AGAP (test code = AGAP) 11.9 10.0-20.0 [facility]2014-02-26 18:49:00 Test Item Value Reference Range Interpretation Comments CO2 (test code = CO2) 23 24-32 [facility]2014-02-26 18:49:00 Test Item Value Reference Range Interpretation Comments eGFR (test code = eGFR) 41 [facility]2014-02-26 18:49:00 Test Item Value Reference Range Interpretation Comments Glucose Lvl (test code = Glucose Lvl) 129 70-99 [facility]2014-02-26 18:49:00 Test Item Value Reference Range Interpretation Comments BUN (test code = BUN) 17 7-22 [facility]2014-02-26 18:49:00 Test Item Value Reference Range Interpretation Comments Creatinine Lvl (test code = Creatinine 1.9 0.5-1.4 Lvl) [facility]2014-02-26 18:49:00 Test Item Value Reference Range Interpretation Comments Potassium Lvl (test code = Potassium 3.9 3.5-5.1 Lvl) [facility]2014-02-26 18:49:00 Test Item Value Reference Range Interpretation Comments Sodium Lvl (test code = Sodium Lvl) 142 135-145 [facility]2014-02-26 18:49:00 Test Item Value Reference Range Interpretation Comments Chloride Lvl (test code = Chloride Lvl) 111 95-109 [facility]UMLL0973[facility]91-75 18:49:00 Test Item Value Reference Range Interpretation Comments VLDL (test code = VLDL) 25 [facility]UbpsoijGXVXFD0631-94-66 18:49:00 Test Item Value Reference Range Interpretation Comments LDL (Calculated) (test code = LDL 98 (Calculated)) [facility]UqicenyNWREZQ5084-58-64 18:49:00 Test Item Value Reference Range Interpretation Comments HDL (test code = HDL) 54 [facility]OxlqgiwCYUVPP2968-92-06 18:49:00 Test Item Value Reference Range Interpretation Comments Chol (test code = Chol) 177 [facility]MqtfxppPBAQWP7406-24-98 18:49:00 Test Item Value Reference Range Interpretation Comments Trig (test code = Trig) 126 [facility]QjfahjmVFXZST6614-73-77 18:49:00 Test Item Value Reference Range Interpretation Comments CHD Risk (test code = CHD Risk) 3.28 4.00-7.30 [facility]2014-02-26 18:49:00 Test Item Value Reference Range Interpretation Comments Calcium Lvl (test code = Calcium Lvl) 8.2 8.5-10.5 [facility]2014-02-26 18:49:00 Test Item Value Reference Range Interpretation Comments AGAP (test code = AGAP) 11.9 10.0-20.0 [facility]2014-02-26 18:49:00 Test Item Value Reference Range Interpretation Comments CO2 (test code = CO2) 23 24-32 [facility]2014-02-26 18:49:00 Test Item Value Reference Range Interpretation Comments eGFR (test code = eGFR) 41 [facility]2014-02-26 18:49:00 Test Item Value Reference Range Interpretation Comments Glucose Lvl (test code = Glucose Lvl) 129 70-99 [facility]2014-02-26 18:49:00 Test Item Value Reference Range Interpretation Comments BUN (test code = BUN) 17 7-22 [facility]2014-02-26 18:49:00 Test Item Value Reference Range Interpretation Comments Creatinine Lvl (test code = Creatinine 1.9 0.5-1.4 Lvl) [facility]2014-02-26 18:49:00 Test Item Value Reference Range Interpretation Comments Potassium Lvl (test code = Potassium 3.9 3.5-5.1 Lvl) [facility]2014-02-26 18:49:00 Test Item Value Reference Range Interpretation Comments Sodium Lvl (test code = Sodium Lvl) 142 135-145 [facility]2014-02-26 18:49:00 Test Item Value Reference Range Interpretation Comments Chloride Lvl (test code = Chloride Lvl) 111 95-109 [facility]jo[facility]uCCTJRI9481[facility]21-34 18:49:00 Test Item Value Reference Range Interpretation Comments VLDL (test code = VLDL) 25 [facility] CenterTizrsraZJBNIH3494-92-06 18:49:00 Test Item Value Reference Range Interpretation Comments LDL (Calculated) (test code = LDL 98 (Calculated)) [facility]MvplrahBATMYL5784-95-44 18:49:00 Test Item Value Reference Range Interpretation Comments HDL (test code = HDL) 54 [facility] CenterQvhgwpbSBGSZJ0503-29-07 18:49:00 Test Item Value Reference Range Interpretation Comments Chol (test code = Chol) 177 [facility]BzkigkuEDMMLH3145-63-26 18:49:00 Test Item Value Reference Range Interpretation Comments Trig (test code = Trig) 126 [facility]XzbrpanQPJUAN9007-57-10 18:49:00 Test Item Value Reference Range Interpretation Comments CHD Risk (test code = CHD Risk) 3.28 4.00-7.30 [facility]2014-02-26 18:49:00 Test Item Value Reference Range Interpretation Comments Calcium Lvl (test code = Calcium Lvl) 8.2 8.5-10.5 [place] 998084-02-26 18:49:00 Test Item Value Reference Range Interpretation Comments AGAP (test code = AGAP) 11.9 10.0-20.0 [facility]2014-02-26 18:49:00 Test Item Value Reference Range Interpretation Comments CO2 (test code = CO2) 23 24-32 [facility]2014-02-26 18:49:00 Test Item Value Reference Range Interpretation Comments eGFR (test code = eGFR) 41 [facility]2014-02-26 18:49:00 Test Item Value Reference Range Interpretation Comments Glucose Lvl (test code = Glucose Lvl) 129 70-99 [facility]2014-02-26 18:49:00 Test Item Value Reference Range Interpretation Comments BUN (test code = BUN) 17 7-22 [facility]2014-02-26 18:49:00 Test Item Value Reference Range Interpretation Comments Creatinine Lvl (test code = Creatinine 1.9 0.5-1.4 Lvl) [facility]2014-02-26 18:49:00 Test Item Value Reference Range Interpretation Comments Potassium Lvl (test code = Potassium 3.9 3.5-5.1 Lvl) [facility]2014-02-26 18:49:00 Test Item Value Reference Range Interpretation Comments Sodium Lvl (test code = Sodium Lvl) 142 135-145 [facility]2014-02-26 18:49:00 Test Item Value Reference Range Interpretation Comments Chloride Lvl (test code = Chloride Lvl) 111 95-109 [facility] CenterDxufxcvWRHXBW0371-63-93 18:49:00 Test Item Value Reference Range Interpretation Comments VLDL (test code = VLDL) 25 [facility]NzeuqrhBPAOYS4061-96-23 18:49:00 Test Item Value Reference Range Interpretation Comments LDL (Calculated) (test code = LDL 98 (Calculated)) [facility]XsrzbrrTJAAQP3169-85-67 18:49:00 Test Item Value Reference Range Interpretation Comments HDL (test code = HDL) 54 [facility]HealthRyftwzjBHOEPW6222-12-89 18:49:00 Test Item Value Reference Range Interpretation Comments Chol (test code = Chol) 177 [facility]HealthZhdbghrVJYTNH8554-09-53 18:49:00 Test Item Value Reference Range Interpretation Comments Trig (test code = Trig) 126 [facility]TasydjpOBVNBS7572-84-62 18:49:00 Test Item Value Reference Range Interpretation Comments CHD Risk (test code = CHD Risk) 3.28 4.00-7.30 [facility]2014-02-26 18:49:00 Test Item Value Reference Range Interpretation Comments Calcium Lvl (test code = Calcium Lvl) 8.2 8.5-10.5 [facility]2014-02-26 18:49:00 Test Item Value Reference Range Interpretation Comments AGAP (test code = AGAP) 11.9 10.0-20.0 [facility]2014-02-26 18:49:00 Test Item Value Reference Range Interpretation Comments CO2 (test code = CO2) 23 24-32 [facility]2014-02-26 18:49:00 Test Item Value Reference Range Interpretation Comments eGFR (test code = eGFR) 41 [facility]2014-02-26 18:49:00 Test Item Value Reference Range Interpretation Comments Glucose Lvl (test code = Glucose Lvl) 129 70-99 [facility]2014-02-26 18:49:00 Test Item Value Reference Range Interpretation Comments BUN (test code = BUN) 17 7-22 [facility]2014-02-26 18:49:00 Test Item Value Reference Range Interpretation Comments Creatinine Lvl (test code = Creatinine 1.9 0.5-1.4 Lvl) [facility]2014-02-26 18:49:00 Test Item Value Reference Range Interpretation Comments Potassium Lvl (test code = Potassium 3.9 3.5-5.1 Lvl) [facility]2014-02-26 18:49:00 Test Item Value Reference Range Interpretation Comments Sodium Lvl (test code = Sodium Lvl) 142 135-145 [facility]2014-02-26 18:49:00 Test Item Value Reference Range Interpretation Comments Chloride Lvl (test code = Chloride Lvl) 111 95-109 [facility]XltpqopOHGCLO6086-00-61 18:49:00 Test Item Value Reference Range Interpretation Comments VLDL (test code = VLDL) 25 [facility]CdfipcgUQWVNG2271-84-82 18:49:00 Test Item Value Reference Range Interpretation Comments LDL (Calculated) (test code = LDL 98 (Calculated)) [facility]HealthZzvfgfcKHIQUJ2459-76-41 18:49:00 Test Item Value Reference Range Interpretation Comments HDL (test code = HDL) 54 [facility]HealthRckfaptQVJIPW1691-51-80 18:49:00 Test Item Value Reference Range Interpretation Comments Chol (test code = Chol) 177 [facility]StlrgwpAMNIAD9695-52-55 18:49:00 Test Item Value Reference Range Interpretation Comments Trig (test code = Trig) 126 [facility]HealthGflzullETDKAA3994-94-73 18:49:00 Test Item Value Reference Range Interpretation Comments CHD Risk (test code = CHD Risk) 3.28 4.00-7.30 [facility]2014-02-26 18:49:00 Test Item Value Reference Range Interpretation Comments Calcium Lvl (test code = Calcium Lvl) 8.2 8.5-10.5 [facility]2014-02-26 18:49:00 Test Item Value Reference Range Interpretation Comments AGAP (test code = AGAP) 11.9 10.0-20.0 [facility]2014-02-26 18:49:00 Test Item Value Reference Range Interpretation Comments CO2 (test code = CO2) 23 24-32 [facility]2014-02-26 18:49:00 Test Item Value Reference Range Interpretation Comments eGFR (test code = eGFR) 41 [facility]2014-02-26 18:49:00 Test Item Value Reference Range Interpretation Comments Glucose Lvl (test code = Glucose Lvl) 129 70-99 [facility]2014-02-26 18:49:00 Test Item Value Reference Range Interpretation Comments BUN (test code = BUN) 17 7-22 [facility]2014-02-26 18:49:00 Test Item Value Reference Range Interpretation Comments Creatinine Lvl (test code = Creatinine 1.9 0.5-1.4 Lvl) [facility]2014-02-26 18:49:00 Test Item Value Reference Range Interpretation Comments Potassium Lvl (test code = Potassium 3.9 3.5-5.1 Lvl) [facility]2014-02-26 18:49:00 Test Item Value Reference Range Interpretation Comments Sodium Lvl (test code = Sodium Lvl) 142 135-145 [facility]2014-02-26 18:49:00 Test Item Value Reference Range Interpretation Comments Chloride Lvl (test code = Chloride Lvl) 111 95-109 [facility] CenterKobmuysRDDUUC4022-89-51 18:49:00 Test Item Value Reference Range Interpretation Comments VLDL (test code = VLDL) 25 [facility]GoerjssAZXPXP9543-31-30 18:49:00 Test Item Value Reference Range Interpretation Comments LDL (Calculated) (test code = LDL 98 (Calculated)) [facility]AmpnzsuUNIXDQ0413-31-80 18:49:00 Test Item Value Reference Range Interpretation Comments HDL (test code = HDL) 54 [facility]HealthTjwqsocDHMUYL1865-71-55 18:49:00 Test Item Value Reference Range Interpretation Comments Chol (test code = Chol) 177 [facility]HbvccplDXQVWV4344-06-00 18:49:00 Test Item Value Reference Range Interpretation Comments Trig (test code = Trig) 126 [facility]HealthWguqcytXLFGRG9908-21-80 18:49:00 Test Item Value Reference Range Interpretation Comments CHD Risk (test code = CHD Risk) 3.28 4.00-7.30 [facility]2014-02-26 18:49:00 Test Item Value Reference Range Interpretation Comments Calcium Lvl (test code = Calcium Lvl) 8.2 8.5-10.5 [facility]2014-02-26 18:49:00 Test Item Value Reference Range Interpretation Comments AGAP (test code = AGAP) 11.9 10.0-20.0 [facility]2014-02-26 18:49:00 Test Item Value Reference Range Interpretation Comments CO2 (test code = CO2) 23 24-32 [facility]2014-02-26 18:49:00 Test Item Value Reference Range Interpretation Comments eGFR (test code = eGFR) 41 [facility]2014-02-26 18:49:00 Test Item Value Reference Range Interpretation Comments Glucose Lvl (test code = Glucose Lvl) 129 70-99 [facility]2014-02-26 18:49:00 Test Item Value Reference Range Interpretation Comments BUN (test code = BUN) 17 7-22 [facility]2014-02-26 18:49:00 Test Item Value Reference Range Interpretation Comments Creatinine Lvl (test code = Creatinine 1.9 0.5-1.4 Lvl) [facility]2014-02-26 18:49:00 Test Item Value Reference Range Interpretation Comments Potassium Lvl (test code = Potassium 3.9 3.5-5.1 Lvl) [facility] [id number] 18:49:00 Test Item Value Reference Range Interpretation Comments Sodium Lvl (test code = Sodium Lvl) 142 135-145 [facility]CHE[facility] [id number] 18:49:00 Test Item Value Reference Range Interpretation Comments Chloride Lvl (test code = Chloride Lvl) 111 95-109 [facility] CenterPoihkzsYIGTCB2135-54-60 18:49:00 Test Item Value Reference Range Interpretation Comments VLDL (test code = VLDL) 25 [facility] CenterLwmxxueODYOBQ5133-02-89 18:49:00 Test Item Value Reference Range Interpretation Comments LDL (Calculated) (test code = LDL 98 (Calculated)) [facility] CenterLyqkeycDGMWVI9224-74-51 18:49:00 Test Item Value Reference Range Interpretation Comments HDL (test code = HDL) 54 [facility] CenterLvnpbtbXTYNUX8693-22-60 18:49:00 Test Item Value Reference Range Interpretation Comments Chol (test code = Chol) 177 [facility] CenterJyoxamwPMJPXF5553-74-40 18:49:00 Test Item Value Reference Range Interpretation Comments Trig (test code = Trig) 126 [facility]RfcivsvXUNMBZ8063-47-04 18:49:00 Test Item Value Reference Range Interpretation Comments CHD Risk (test code = CHD Risk) 3.28 4.00-7.30 [facility] AND [id number] 10:05:14 Test Item Value Reference Range Interpretation Comments Micro? (test code = Performed *NA*(11/24/2013 Micro?) 04:05:14 [facility]/[place]) [facility] AND [id number] 10:05:14 Test Item Value Reference Range Interpretation Comments UA Mucus (test code = UA Mucus) Few /LPF [facility] AND [id number] 10:05:14 Test Item Value Reference Range Interpretation Comments UA RBC (test code = 1 See_Comment [Automa cruz message] The UA RBC) system which ge nerated this result transmit cruz reference range : <=2. The reference range was not used to interpr et this result as gee l/abnormal. [facility] AND [id number] 10:05:14 Test Item Value Reference Range Interpretation Comments UA Urobilinogen (test code = UA <=1.0 mg/dL 0.1-1.0 Urobilinogen) [facility] AND [id number] 10:05:14 Test Item Value Reference Range Interpretation Comments UA Turbidity (test code = Clear (11/24/2013 UA Turbidity) 04:05:14 [facility]/[place]) [facility] AND [id number] 10:05:14 Test Item Value Reference Range Interpretation Comments UA Protein (test code = UA >=300 mg/dL Protein) [facility] AND [id number] 10:05:14 Test Item Value Reference Range Interpretation Comments UA pH (test code = UA pH) 6.5 5.0-8.0 [facility] AND [id number] 10:05:14 Test Item Value Reference Range Interpretation Comments UA Spec Grav (test code = UA Spec Grav) 1.010 [facility] AND [id number] 10:05:14 Test Item Value Reference Range Interpretation Comments UA Color (test code = Light Yellow UA Color) *NA*(11/24/2013 04:05:14 [facility]/[place]) [facility] AND [id number] 10:05:14 Test Item Value Reference Range Interpretation Comments UA WBC (test code = 2 See_Comment [Automa cruz message] The UA WBC) system which ge nerated this result transmit cruz reference range : <=5. The reference range was not used to interpr et this result as gee l/abnormal. [facility] AND [id number] 10:05:14 Test Item Value Reference Range Interpretation Comments UA Sq Epi (test code = UA Sq Occasional /LPF Epi) [facility] AND [id number] 10:05:14 Test Item Value Reference Range Interpretation Comments UA Leuk Est (test Negative (11/24/2013 code = UA Leuk Est) 04:05:14 [facility]/[place]) [facility] AND [id number] 10:05:14 Test Item Value Reference Range Interpretation Comments UA Nitrite (test code Negative (11/24/2013 = UA Nitrite) 04:05:14 [facility]/[place]) [facility] [id number] 10:05:14 Test Item Value Reference Range Interpretation Comments UA Blood (test code = Small *ABN*(11/24/2013 UA Blood) 04:05:14 [facility]/[place]) [facility] AND [id number] 10:05:14 Test Item Value Reference Range Interpretation Comments UA Ketones (test code = UA Negative mg/dL Ketones) [facility] AND [id number] 10:05:14 Test Item Value Reference Range Interpretation Comments UA Glucose (test code = UA Glucose) 30 mg/dL [facility] AND [id number] 10:05:14 Test Item Value Reference Range Interpretation Comments UA Bili (test code = Negative *NA*(11/24/2013 UA Bili) 04:05:14 [facility]/[place]) [facility] [id number] 10:05:14 Test Item Value Reference Range Interpretation Comments Micro? (test code = Performed *NA*(11/24/2013 Micro?) 04:05:14 [facility]) [facility] [id number] 10:05:14 Test Item Value Reference Range Interpretation Comments UA Mucus (test code = UA Mucus) Few /LPF [facility] AND [id number] 10:05:14 Test Item Value Reference Range Interpretation Comments UA RBC (test code = 1 See_Comment [Automa cruz message] The UA RBC) system which ge nerated this result transmit cruz reference range : <=2. The reference range was not used to interpr et this result as gee l/abnormal. [facility] AND [id number] 10:05:14 Test Item Value Reference Range Interpretation Comments UA Urobilinogen (test code = UA <=1.0 mg/dL 0.1-1.0 Urobilinogen) [facility] AND [id number] 10:05:14 Test Item Value Reference Range Interpretation Comments UA Turbidity (test code = Clear (11/24/2013 UA Turbidity) 04:05:14 [facility]/[place]) [facility] AND [id number] 10:05:14 Test Item Value Reference Range Interpretation Comments UA Protein (test code = UA >=300 mg/dL Protein) [facility] AND [id number] 10:05:14 Test Item Value Reference Range Interpretation Comments UA pH (test code = UA pH) 6.5 5.0-8.0 [facility] AND [id number] 10:05:14 Test Item Value Reference Range Interpretation Comments UA Spec Grav (test code = UA Spec Grav) 1.010 [facility] [id number] 10:05:14 Test Item Value Reference Range Interpretation Comments UA Color (test code = Light Yellow UA Color) *NA*(11/24/2013 04:05:14 [facility]/[place]) [facility] AND [id number] 10:05:14 Test Item Value Reference Range Interpretation Comments UA WBC (test code = 2 See_Comment [Automa cruz message] The UA WBC) system which ge nerated this result transmit cruz reference range : <=5. The reference range was not used to interpr et this result as gee l/abnormal. [facility] AND [id number] 10:05:14 Test Item Value Reference Range Interpretation Comments UA Sq Epi (test code = UA Sq Occasional /LPF Epi) [facility] AND [id number] 10:05:14 Test Item Value Reference Range Interpretation Comments UA Leuk Est (test Negative (11/24/2013 code = UA Leuk Est) 04:05:14 [facility]/[place]) [facility] AND [id number] 10:05:14 Test Item Value Reference Range Interpretation Comments UA Nitrite (test code Negative (11/24/2013 = UA Nitrite) 04:05:14 [facility]/[place]) [facility] AND [id number] 10:05:14 Test Item Value Reference Range Interpretation Comments UA Blood (test code = Small *ABN*(11/24/2013 UA Blood) 04:05:14 [facility]/[place]) [facility] AND [id number] 10:05:14 Test Item Value Reference Range Interpretation Comments UA Ketones (test code = UA Negative mg/dL Ketones) [facility] [id number] 10:05:14 Test Item Value Reference Range Interpretation Comments UA Glucose (test code = UA Glucose) 30 mg/dL [facility] AND [id number] 10:05:14 Test Item Value Reference Range Interpretation Comments UA Bili (test code = Negative *NA*(11/24/2013 UA Bili) 04:05:14 [facility]) [facility] [facility] [id number] 10:05:14 Test Item Value Reference Range Interpretation Comments Micro? (test code = Performed *NA*(11/24/2013 Micro?) 04:05:14 [facility]/[place]) [facility] [id number] 10:05:14 Test Item Value Reference Range Interpretation Comments UA Mucus (test code = UA Mucus) Few /LPF [facility] [id number] 10:05:14 Test Item Value Reference Range Interpretation Comments UA RBC (test code = 1 See_Comment [Automa cruz message] The UA RBC) system which ge nerated this result transmit cruz reference range : <=2. The reference range was not used to interpr et this result as gee l/abnormal. [facility] Zack[facility] AND [id number] 10:05:14 Test Item Value Reference Range Interpretation Comments UA Urobilinogen (test code = UA <=1.0 mg/dL 0.1-1.0 Urobilinogen) [facility] [id number] 10:05:14 Test Item Value Reference Range Interpretation Comments UA Turbidity (test code = Clear (11/24/2013 UA Turbidity) 04:05:14 [facility]) [facility] [id number] 10:05:14 Test Item Value Reference Range Interpretation Comments UA Protein (test code = UA >=300 mg/dL Protein) [facility] [id number] 10:05:14 Test Item Value Reference Range Interpretation Comments UA pH (test code = UA pH) 6.5 5.0-8.0 [facility] [id number] 10:05:14 Test Item Value Reference Range Interpretation Comments UA Spec Grav (test code = UA Spec Grav) 1.010 [facility] [id number] 10:05:14 Test Item Value Reference Range Interpretation Comments UA Color (test code = Light Yellow UA Color) *NA*(11/24/2013 04:05:14 [facility]/[place]) [facility] [id number] 10:05:14 Test Item Value Reference Range Interpretation Comments UA WBC (test code = 2 See_Comment [Automa cruz message] The UA WBC) system which ge nerated this result transmit cruz reference range : <=5. The reference range was not used to interpr et this result as gee l/abnormal. [facility] AND [id number] 10:05:14 Test Item Value Reference Range Interpretation Comments UA Sq Epi (test code = UA Sq Occasional /LPF Epi) [facility] AND [id number] 10:05:14 Test Item Value Reference Range Interpretation Comments UA Leuk Est (test Negative (11/24/2013 code = UA Leuk Est) 04:05:14 [facility]/[place]) [facility] AND [id number] 10:05:14 Test Item Value Reference Range Interpretation Comments UA Nitrite (test code Negative (11/24/2013 = UA Nitrite) 04:05:14 [facility]/[place]) [facility] AND [id number] 10:05:14 Test Item Value Reference Range Interpretation Comments UA Blood (test code = Small *ABN*(11/24/2013 UA Blood) 04:05:14 [facility]/[place]) [facility] AND [id number] 10:05:14 Test Item Value Reference Range Interpretation Comments UA Ketones (test code = UA Negative mg/dL Ketones) [facility] AND [id number] 10:05:14 Test Item Value Reference Range Interpretation Comments UA Glucose (test code = UA Glucose) 30 mg/dL [facility] AND [id number] 10:05:14 Test Item Value Reference Range Interpretation Comments UA Bili (test code = Negative *NA*(11/24/2013 UA Bili) 04:05:14 [facility]/[place]) [facility] AND [id number] 10:05:14 Test Item Value Reference Range Interpretation Comments Micro? (test code = Performed *NA*(11/24/2013 Micro?) 04:05:14 [facility]/[place]) [facility] AND [id number] 10:05:14 Test Item Value Reference Range Interpretation Comments UA Mucus (test code = UA Mucus) Few /LPF [facility] AND [id number] 10:05:14 Test Item Value Reference Range Interpretation Comments UA RBC (test code = UA RBC) 1 <=2 [facility] AND [id number] 10:05:14 Test Item Value Reference Range Interpretation Comments UA Urobilinogen (test code = UA <=1.0 mg/dL 0.1-1.0 Urobilinogen) [facility] AND [id number] 10:05:14 Test Item Value Reference Range Interpretation Comments UA Turbidity (test code = Clear (11/24/2013 UA Turbidity) 04:05:14 [facility]/[place]) [facility] AND [id number] 10:05:14 Test Item Value Reference Range Interpretation Comments UA Protein (test code = UA >=300 mg/dL Protein) [facility] AND [id number] 10:05:14 Test Item Value Reference Range Interpretation Comments UA pH (test code = UA pH) 6.5 5.0-8.0 [facility] AND [id number] 10:05:14 Test Item Value Reference Range Interpretation Comments UA Spec Grav (test code = UA Spec Grav) 1.010 [facility] AND [id number] 10:05:14 Test Item Value Reference Range Interpretation Comments UA Color (test code = Light Yellow UA Color) *NA*(11/24/2013 04:05:14 [facility]) [facility] AND [id number] 10:05:14 Test Item Value Reference Range Interpretation Comments UA WBC (test code = UA WBC) 2 <=5 [facility] AND [id number] 10:05:14 Test Item Value Reference Range Interpretation Comments UA Sq Epi (test code = UA Sq Occasional /LPF Epi) [facility] AND [id number] 10:05:14 Test Item Value Reference Range Interpretation Comments UA Leuk Est (test Negative (11/24/2013 code = UA Leuk Est) 04:05:14 [facility]/[place]) [facility] AND [id number] 10:05:14 Test Item Value Reference Range Interpretation Comments UA Nitrite (test code Negative (11/24/2013 = UA Nitrite) 04:05:14 [facility]/[place]) [facility] AND [id number] 10:05:14 Test Item Value Reference Range Interpretation Comments UA Blood (test code = Small *ABN*(11/24/2013 UA Blood) 04:05:14 [facility]/[place]) [facility] AND [id number] 10:05:14 Test Item Value Reference Range Interpretation Comments UA Ketones (test code = UA Negative mg/dL Ketones) [facility] AND [id number] 10:05:14 Test Item Value Reference Range Interpretation Comments UA Glucose (test code = UA Glucose) 30 mg/dL [facility] AND [id number] 10:05:14 Test Item Value Reference Range Interpretation Comments UA Bili (test code = Negative *NA*(11/24/2013 UA Bili) 04:05:14 [facility]) [facility] AND [id number] 10:05:14 Test Item Value Reference Range Interpretation Comments Micro? (test code = Performed *NA*(11/24/2013 Micro?) 04:05:14 [facility]/[place]) [facility] AND [id number] 10:05:14 Test Item Value Reference Range Interpretation Comments UA Mucus (test code = UA Mucus) Few /LPF [facility] AND [id number] 10:05:14 Test Item Value Reference Range Interpretation Comments UA RBC (test code = 1 See_Comment [Automa cruz message] The UA RBC) system which ge nerated this result transmit cruz reference range : <=2. The reference range was not used to interpr et this result as gee l/abnormal. [facility] AND [id number] 10:05:14 Test Item Value Reference Range Interpretation Comments UA Urobilinogen (test code = UA <=1.0 mg/dL 0.1-1.0 Urobilinogen) [facility] AND [id number] 10:05:14 Test Item Value Reference Range Interpretation Comments UA Turbidity (test code = Clear (11/24/2013 UA Turbidity) 04:05:14 [facility]/[place]) [facility] AND [id number] 10:05:14 Test Item Value Reference Range Interpretation Comments UA Protein (test code = UA >=300 mg/dL Protein) [facility] AND [id number] 10:05:14 Test Item Value Reference Range Interpretation Comments UA pH (test code = UA pH) 6.5 5.0-8.0 [facility] AND [id number] 10:05:14 Test Item Value Reference Range Interpretation Comments UA Spec Grav (test code = UA Spec Grav) 1.010 [facility] AND [id number] 10:05:14 Test Item Value Reference Range Interpretation Comments UA Color (test code = Light Yellow UA Color) *NA*(11/24/2013 04:05:14 [facility]) [facility] AND [id number] 10:05:14 Test Item Value Reference Range Interpretation Comments UA WBC (test code = 2 See_Comment [Automa cruz message] The UA WBC) system which ge nerated this result transmit cruz reference range : <=5. The reference range was not used to interpr et this result as gee l/abnormal. [facility] AND [id number] 10:05:14 Test Item Value Reference Range Interpretation Comments UA Sq Epi (test code = UA Sq Occasional /LPF Epi) [facility] AND [id number] 10:05:14 Test Item Value Reference Range Interpretation Comments UA Leuk Est (test Negative (11/24/2013 code = UA Leuk Est) 04:05:14 [facility]) [facility] AND [id number] 10:05:14 Test Item Value Reference Range Interpretation Comments UA Nitrite (test code Negative (11/24/2013 = UA Nitrite) 04:05:14 [facility]/[place]) [facility] AND [id number] 10:05:14 Test Item Value Reference Range Interpretation Comments UA Blood (test code = Small *ABN*(11/24/2013 UA Blood) 04:05:14 [facility]/[place]) [facility] AND [id number] 10:05:14 Test Item Value Reference Range Interpretation Comments UA Ketones (test code = UA Negative mg/dL Ketones) [facility] AND [id number] 10:05:14 Test Item Value Reference Range Interpretation Comments UA Glucose (test code = UA Glucose) 30 mg/dL [facility] AND [id number] 10:05:14 Test Item Value Reference Range Interpretation Comments UA Bili (test code = Negative *NA*(11/24/2013 UA Bili) 04:05:14 [facility]/[place]) [facility] AND [id number] 10:05:14 Test Item Value Reference Range Interpretation Comments UA Leuk Est (test Negative (11/24/2013 code = UA Leuk Est) 04:05:14 [facility]/[place]) [facility] AND [id number] 10:05:14 Test Item Value Reference Range Interpretation Comments UA Nitrite (test code Negative (11/24/2013 = UA Nitrite) 04:05:14 [facility]/[place]) [facility] AND [id number] 10:05:14 Test Item Value Reference Range Interpretation Comments UA Blood (test code = Small *ABN*(11/24/2013 UA Blood) 04:05:14 [facility]/[place]) [facility] AND [id number] 10:05:14 Test Item Value Reference Range Interpretation Comments UA Ketones (test code = UA Negative mg/dL Ketones) [facility] AND [id number] 10:05:14 Test Item Value Reference Range Interpretation Comments UA Glucose (test code = UA Glucose) 30 mg/dL [facility] AND [id number] 10:05:14 Test Item Value Reference Range Interpretation Comments UA Bili (test code = Negative *NA*(11/24/2013 UA Bili) 04:05:14 [facility]/[place]) [facility] AND [id number] 10:05:14 Test Item Value Reference Range Interpretation Comments Micro? (test code = Performed *NA*(11/24/2013 Micro?) 04:05:14 [facility]/[place]) [facility] AND [id number] 10:05:14 Test Item Value Reference Range Interpretation Comments UA Mucus (test code = UA Mucus) Few /LPF [facility] AND [id number] 10:05:14 Test Item Value Reference Range Interpretation Comments UA RBC (test code = UA RBC) 1 <=2 [facility] AND [id number] 10:05:14 Test Item Value Reference Range Interpretation Comments UA Urobilinogen (test code = UA <=1.0 mg/dL 0.1-1.0 Urobilinogen) [facility] AND [id number] 10:05:14 Test Item Value Reference Range Interpretation Comments UA Turbidity (test code = Clear (11/24/2013 UA Turbidity) 04:05:14 [facility]/[place]) [facility] AND [id number] 10:05:14 Test Item Value Reference Range Interpretation Comments UA Protein (test code = UA >=300 mg/dL Protein) [facility] AND [id number] 10:05:14 Test Item Value Reference Range Interpretation Comments UA pH (test code = UA pH) 6.5 5.0-8.0 [facility] AND [id number] 10:05:14 Test Item Value Reference Range Interpretation Comments UA Spec Grav (test code = UA Spec Grav) 1.010 [facility] AND [id number] 10:05:14 Test Item Value Reference Range Interpretation Comments UA Color (test code = Light Yellow UA Color) *NA*(11/24/2013 04:05:14 [facility]/[place]) [facility] AND [id number] 10:05:14 Test Item Value Reference Range Interpretation Comments UA WBC (test code = UA WBC) 2 <=5 [facility] AND [id number] 10:05:14 Test Item Value Reference Range Interpretation Comments UA Sq Epi (test code = UA Sq Occasional /LPF Epi) [facility] [id number] 09:17:00 Test Item Value Reference Range Interpretation Comments Alk Phos (test code = Alk Phos) 108 39-136 [facility] [id number] 09:17:00 Test Item Value Reference Range Interpretation Comments ALANINE AMINOTRANSFERASE 20 See_Comment [A utomated message] (test code = ALANINE The sys tem which AMINOTRANSFERASE) generated this result transmitted ref erence range: <=65. Th e reference range was not used to int erpret this result as normal/abnormal . [facility]2014-02-25 09:17:00 Test Item Value Reference Range Interpretation Comments A/G Ratio (test code = A/G Ratio) 0.6 0.7-1.6 [facility] [id number] 09:17:00 Test Item Value Reference Range Interpretation Comments Globulin (test code = Globulin) 4.6 2.0-4.0 [facility]2014-02-25 09:17:00 Test Item Value Reference Range Interpretation Comments B/C Ratio (test code = B/C Ratio) 11 -25 [id number] 09:17:00 Test Item Value Reference Range Interpretation Comments Basophils # (test code 0.0 See_Comment [Aut omated message] The = Basophils #) system which generated this result tra nsmitted reference range : <=0.2. The reference r jillian was not used to int erpret this result as normal/abnormal . [id number] 09:17:00 Test Item Value Reference Range Interpretation Comments Eosinophils # (test code 0.0 See_Comment [A utomated message] The = Eosinophils #) system whic h generated this result tra nsmitted reference range : <=0.5. The reference r jillian was not used to int erpret this result as normal/abnormal . [facility] [id number] 09:17:00 Test Item Value Reference Range Interpretation Comments Monocytes # (test code 0.4 See_Comment [Aut omated message] The = Monocytes #) system which generated this result tra nsmitted reference range : <=0.8. The reference r jillian was not used to int erpret this result as normal/abnormal . [facility] [id number] 09:17:00 Test Item Value Reference Range Interpretation Comments Lymphocytes (test code = Lymphocytes) 15.7 20.0-40.0 [facility] [id number] 09:17:00 Test Item Value Reference Range Interpretation Comments Plt Morph (test code = Normal (11/23/2013 Plt Morph) 03:17:00 [facility]/[place]) [facility] [id number] 09:17:00 Test Item Value Reference Range Interpretation Comments Segs (test code = Segs) 76.6 45.0-75.0 [facility] [id number] 09:17:00 Test Item Value Reference Range Interpretation Comments Lymphocytes # (test code = Lymphocytes 1.0 1.0-5.5 #) [facility] [id number] 09:17:00 Test Item Value Reference Range Interpretation Comments Basophils (test code = 0.2 See_Comment [Aut omated message] The Basophils) system which ge nerated this result tra nsmitted reference range : <=1.0. The reference r jillian was not used to int erpret this result as normal/abnormal . [facility] TexasXzjyxcbSOHDODUZKT7604-11-04 09:17:00 Test Item Value Reference Range Interpretation Comments Segs-Bands # (test code = Segs-Bands #) 4.7 1.5-8.1 [facility] [id number] 09:17:00 Test Item Value Reference Range Interpretation Comments RBC Morph (test code = Normal (11/23/2013 RBC Morph) 03:17:00 [facility]) [facility] TexasGteoreuQVDZKBZHUR0638-04-39 09:17:00 Test Item Value Reference Range Interpretation Comments Eosinophils (test code = 0.7 See_Comment [A utomated message] The Eosinophils) system which ge nerated this result tra nsmitted reference range : <=4.0. The reference r jillian was not used to int erpret this result as normal/abnormal . [facility] TexasIcpvkciKNGSMCVMCK5191-60-45 09:17:00 Test Item Value Reference Range Interpretation Comments Monocytes (test code = Monocytes) 6.8 2.0-12.0 [facility] [id number] 09:17:00 Test Item Value Reference Range Interpretation Comments PROTIME (test code = PROTIME) 13.4 s 12.0-14.7 [facility] TexasJroydlfEERDOSMEDZ0627-38-02 09:17:00 Test Item Value Reference Range Interpretation Comments INR (test code = INR) 1.03 0.85-1.17 [facility] TexasXmgvptbAKEUQBXZIT9830-08-45 09:17:00 Test Item Value Reference Range Interpretation Comments MPV (test code = MPV) 9.9 7.4-10.4 [facility] TexasLmdkfliDUKBSGYPSI3450-48-77 09:17:00 Test Item Value Reference Range Interpretation Comments Platelet (test code = Platelet) 221 133-450 [facility] TexasLvdxwexQWFFWDIPYA7553-22-73 09:17:00 Test Item Value Reference Range Interpretation Comments MCHC (test code = MCHC) 32.7 32.0-36.0 [facility] TexasXoivgbjQVFRUTAXYB8755-18-38 09:17:00 Test Item Value Reference Range Interpretation Comments MCH (test code = MCH) 30.0 pg 27.0-31.0 [facility] TexasCxzzqozZOZZOIOWTF8499-62-35 09:17:00 Test Item Value Reference Range Interpretation Comments RDW (test code = RDW) 14.7 11.5-14.5 [facility] TexasSywjwseCBTJLQVEZZ4900-30-82 09:17:00 Test Item Value Reference Range Interpretation Comments WBC X 10x3 (test code = WBC X 10x3) 6.1 3.7-10.4 [facility] TexasXuavsxrSRVWPRFXLK3554-72-78 09:17:00 Test Item Value Reference Range Interpretation Comments RBC X 10x6 (test code = RBC X 10x6) 4.88 4.70-6.10 [facility] TexasVnnjvceDHBFEMPJFN4581-62-09 09:17:00 Test Item Value Reference Range Interpretation Comments Hgb (test code = Hgb) 14.6 14.0-18.0 [facility] TexasAamzmhzAOHQQBQTMC1657-37-88 09:17:00 Test Item Value Reference Range Interpretation Comments MCV (test code = MCV) 91.6 80.0-94.0 [facility] TexasNfaopdyTVDAUARGZL8676-56-03 09:17:00 Test Item Value Reference Range Interpretation Comments Hct (test code = Hct) 44.6 42.0-54.0 [facility]2014-02-25 09:17:00 Test Item Value Reference Range Interpretation Comments Magnesium Lvl (test code = Magnesium 2.0 1.8-2.4 Lvl) [facility]2014-02-25 09:17:00 Test Item Value Reference Range Interpretation Comments Phosphorus (test code = Phosphorus) 2.5 2.5-4.5 [facility]2014-02-25 09:17:00 Test Item Value Reference Range Interpretation Comments Total Protein (test code = Total 7.3 6.4-8.4 Protein) [facility]2014-02-25 09:17:00 Test Item Value Reference Range Interpretation Comments Albumin Lvl (test code = Albumin Lvl) 2.7 3.5-5.0 [facility]2014-02-25 09:17:00 Test Item Value Reference Range Interpretation Comments ASPARTATE TRANSAMINASE 21 See_Comment [Aut omated message] (test code = ASPARTATE The s ystem which TRANSAMINASE) generated this result transmitted ref erence range: <=37. Th e reference range was not used to interpr et this result as normal/abnormal . [facility]2014-02-25 09:17:00 Test Item Value Reference Range Interpretation Comments Bili Total (test code = Bili Total) 0.6 0.2-1.3 [facility]2014-02-25 09:17:00 Test Item Value Reference Range Interpretation Comments Alk Phos (test code = Alk Phos) 108 39-136 [facility]2014-02-25 09:17:00 Test Item Value Reference Range Interpretation Comments ALANINE AMINOTRANSFERASE 20 See_Comment [A utomated message] (test code = ALANINE The sys tem which AMINOTRANSFERASE) generated this result transmitted ref erence range: <=65. Th e reference range was not used to int erpret this result as normal/abnormal . [facility]2014-02-25 09:17:00 Test Item Value Reference Range Interpretation Comments A/G Ratio (test code = A/G Ratio) 0.6 0.7-1.6 [place] [id number] 09:17:00 Test Item Value Reference Range Interpretation Comments Globulin (test code = Globulin) 4.6 2.0-4.0 [facility]2014-02-25 09:17:00 Test Item Value Reference Range Interpretation Comments B/C Ratio (test code = B/C Ratio) 11 -25 [facility] TexasAfugndjPFDJEXFYFD4779-87-55 09:17:00 Test Item Value Reference Range Interpretation Comments Basophils # (test code 0.0 See_Comment [Aut omated message] The = Basophils #) system which generated this result tra nsmitted reference range : <=0.2. The reference r jillian was not used to int erpret this result as normal/abnormal . [facility] TexasJbrhvhyCUNRPXOUMV9111-37-78 09:17:00 Test Item Value Reference Range Interpretation Comments Eosinophils # (test code 0.0 See_Comment [A utomated message] The = Eosinophils #) system whic h generated this result tra nsmitted reference range : <=0.5. The reference r jillian was not used to int erpret this result as normal/abnormal . [facility] TexasMlfmialWINAWILOWG0628-37-81 09:17:00 Test Item Value Reference Range Interpretation Comments Monocytes # (test code 0.4 See_Comment [Aut omated message] The = Monocytes #) system which generated this result tra nsmitted reference range : <=0.8. The reference r jillian was not used to int erpret this result as normal/abnormal . [facility] TexasDcpxvnwBIJDTOMBJA5589-97-03 09:17:00 Test Item Value Reference Range Interpretation Comments Lymphocytes (test code = Lymphocytes) 15.7 20.0-40.0 [facility] TexasSurqgevGOYVPGMUCE7414-46-58 09:17:00 Test Item Value Reference Range Interpretation Comments Plt Morph (test code = Normal (11/23/2013 Plt Morph) 03:17:00 [facility]/[place]) [facility]XroygbcMPLFIXOBIQ5872-51-42 09:17:00 Test Item Value Reference Range Interpretation Comments Segs (test code = Segs) 76.6 45.0-75.0 [facility] TexasZjfmgrsVQNLPWSNDA3868-40-61 09:17:00 Test Item Value Reference Range Interpretation Comments Lymphocytes # (test code = Lymphocytes 1.0 1.0-5.5 #) [facility] TexasOojftqoGNJHNIIRMP8402-57-04 09:17:00 Test Item Value Reference Range Interpretation Comments Basophils (test code = 0.2 See_Comment [Aut omated message] The Basophils) system which ge nerated this result tra nsmitted reference range : <=1.0. The reference r jillian was not used to int erpret this result as normal/abnormal . [facility] TexasRqvprbwLLFZQSUPYL1122-82-04 09:17:00 Test Item Value Reference Range Interpretation Comments Segs-Bands # (test code = Segs-Bands #) 4.7 1.5-8.1 [facility] TexasYolarwvSTLXVKTOSX8247-47-39 09:17:00 Test Item Value Reference Range Interpretation Comments RBC Morph (test code = Normal (11/23/2013 RBC Morph) 03:17:00 [facility]/[place]) [facility]ZgigulgFLTONTKSKO4872-75-69 09:17:00 Test Item Value Reference Range Interpretation Comments Eosinophils (test code = 0.7 See_Comment [A utomated message] The Eosinophils) system which ge nerated this result tra nsmitted reference range : <=4.0. The reference r jillian was not used to int erpret this result as normal/abnormal . [facility] TexasPhsjwpaTRYRVNKKIO7037-35-69 09:17:00 Test Item Value Reference Range Interpretation Comments Monocytes (test code = Monocytes) 6.8 2.0-12.0 [facility] TexasYxifaqxDGGCJNQFQI8048-69-40 09:17:00 Test Item Value Reference Range Interpretation Comments PROTIME (test code = PROTIME) 13.4 s 12.0-14.7 [facility] TexasLdczdbzFYWXNLMQKH7486-68-11 09:17:00 Test Item Value Reference Range Interpretation Comments INR (test code = INR) 1.03 0.85-1.17 [facility] TexasVfgfgnhNUSBKHLOPC0126-20-47 09:17:00 Test Item Value Reference Range Interpretation Comments MPV (test code = MPV) 9.9 7.4-10.4 [facility] TexasAfuopdyTCWQDONJIR2332-30-85 09:17:00 Test Item Value Reference Range Interpretation Comments Platelet (test code = Platelet) 221 133-450 [facility] TexasTsstjmdRKJBJMDEIL7678-41-19 09:17:00 Test Item Value Reference Range Interpretation Comments MCHC (test code = MCHC) 32.7 32.0-36.0 [facility]XfeaeuqTGPTVPKMWT3591-85-66 09:17:00 Test Item Value Reference Range Interpretation Comments MCH (test code = MCH) 30.0 pg 27.0-31.0 [facility] TexasQlmgesqSJXATGBAMM6455-83-00 09:17:00 Test Item Value Reference Range Interpretation Comments RDW (test code = RDW) 14.7 11.5-14.5 [facility] TexasItjcksiMCWGNBKAQH0376-07-59 09:17:00 Test Item Value Reference Range Interpretation Comments WBC X 10x3 (test code = WBC X 10x3) 6.1 3.7-10.4 [facility] TexasEytmflwTVRQHFQCUB9251-35-41 09:17:00 Test Item Value Reference Range Interpretation Comments RBC X 10x6 (test code = RBC X 10x6) 4.88 4.70-6.10 [facility] TexasQvxctzzJUQACFDBSW1642-57-08 09:17:00 Test Item Value Reference Range Interpretation Comments Hgb (test code = Hgb) 14.6 14.0-18.0 [facility] TexasRqwfskyCFIAUYFRHV3024-61-75 09:17:00 Test Item Value Reference Range Interpretation Comments MCV (test code = MCV) 91.6 80.0-94.0 [facility] TexasTgbsnnoVPMVEKEFME7666-11-92 09:17:00 Test Item Value Reference Range Interpretation Comments Hct (test code = Hct) 44.6 42.0-54.0 [facility]2014-02-25 09:17:00 Test Item Value Reference Range Interpretation Comments Magnesium Lvl (test code = Magnesium 2.0 1.8-2.4 Lvl) [facility]2014-02-25 09:17:00 Test Item Value Reference Range Interpretation Comments Phosphorus (test code = Phosphorus) 2.5 2.5-4.5 [facility]2014-02-25 09:17:00 Test Item Value Reference Range Interpretation Comments Total Protein (test code = Total 7.3 6.4-8.4 Protein) [facility]2014-02-25 09:17:00 Test Item Value Reference Range Interpretation Comments Albumin Lvl (test code = Albumin Lvl) 2.7 3.5-5.0 [facility]2014-02-25 09:17:00 Test Item Value Reference Range Interpretation Comments ASPARTATE TRANSAMINASE 21 See_Comment [Aut omated message] (test code = ASPARTATE The s ystem which TRANSAMINASE) generated this result transmitted ref erence range: <=37. Th e reference range was not used to interpr et this result as normal/abnormal . [facility]2014-02-25 09:17:00 Test Item Value Reference Range Interpretation Comments Bili Total (test code = Bili Total) 0.6 0.2-1.3 [facility]2014-02-25 09:17:00 Test Item Value Reference Range Interpretation Comments Alk Phos (test code = Alk Phos) 108 39-136 [facility]2014-02-25 09:17:00 Test Item Value Reference Range Interpretation Comments ALANINE AMINOTRANSFERASE 20 See_Comment [A utomated message] (test code = ALANINE The sys tem which AMINOTRANSFERASE) generated this result transmitted ref erence range: <=65. Th e reference range was not used to int erpret this result as normal/abnormal . [facility]2014-02-25 09:17:00 Test Item Value Reference Range Interpretation Comments A/G Ratio (test code = A/G Ratio) 0.6 0.7-1.6 [facility]2014-02-25 09:17:00 Test Item Value Reference Range Interpretation Comments Globulin (test code = Globulin) 4.6 2.0-4.0 [facility]2014-02-25 09:17:00 Test Item Value Reference Range Interpretation Comments B/C Ratio (test code = B/C Ratio) 11 6-25 [facility] TexasIvortnsCDAYGBUNHG8481-83-89 09:17:00 Test Item Value Reference Range Interpretation Comments Basophils # (test code 0.0 See_Comment [Aut omated message] The = Basophils #) system which generated this result tra nsmitted reference range : <=0.2. The reference r jillian was not used to int erpret this result as normal/abnormal . [facility] TexasZtyftsyBLAWQNKXUZ7809-07-68 09:17:00 Test Item Value Reference Range Interpretation Comments Eosinophils # (test code 0.0 See_Comment [A utomated message] The = Eosinophils #) system whic h generated this result tra nsmitted reference range : <=0.5. The reference r jillian was not used to int erpret this result as normal/abnormal . [facility] TexasXphpjwtLJEBUWXXQA9108-00-17 09:17:00 Test Item Value Reference Range Interpretation Comments Monocytes # (test code 0.4 See_Comment [Aut omated message] The = Monocytes #) system which generated this result tra nsmitted reference range : <=0.8. The reference r jillian was not used to int erpret this result as normal/abnormal . [facility] TexasJaghouxBLWEPVNQPA0530-75-24 09:17:00 Test Item Value Reference Range Interpretation Comments Lymphocytes (test code = Lymphocytes) 15.7 20.0-40.0 [facility] TexasZfvswbqKMSFUBQCWD0987-84-52 09:17:00 Test Item Value Reference Range Interpretation Comments Plt Morph (test code = Normal (11/23/2013 Plt Morph) 03:17:00 [facility] TexasGgoyljhTOYMXEPMMK7617-73-55 09:17:00 Test Item Value Reference Range Interpretation Comments Segs (test code = Segs) 76.6 45.0-75.0 [facility] TexasBqnbxtkRYYLRLAHMN0108-62-84 09:17:00 Test Item Value Reference Range Interpretation Comments Lymphocytes # (test code = Lymphocytes 1.0 1.0-5.5 #) [facility] TexasHnbauclYQEVXVNYJZ6113-80-75 09:17:00 Test Item Value Reference Range Interpretation Comments Basophils (test code = 0.2 See_Comment [Aut omated message] The Basophils) system which ge nerated this result tra nsmitted reference range : <=1.0. The reference r jillian was not used to int erpret this result as normal/abnormal . [facility] TexasJalthzwASWJPGKFFP3461-17-79 09:17:00 Test Item Value Reference Range Interpretation Comments Segs-Bands # (test code = Segs-Bands #) 4.7 1.5-8.1 [facility] TexasHmhrexkJWWEYGMIGJ7107-90-25 09:17:00 Test Item Value Reference Range Interpretation Comments RBC Morph (test code = Normal (11/23/2013 RBC Morph) 03:17:00 [facility] TexasKeoetumYRQDTSXEUX3963-38-31 09:17:00 Test Item Value Reference Range Interpretation Comments Eosinophils (test code = 0.7 See_Comment [A utomated message] The Eosinophils) system which ge nerated this result tra nsmitted reference range : <=4.0. The reference r jillian was not used to int erpret this result as normal/abnormal . [facility] TexasNlilrhcPWTRFZWCYH8945-95-68 09:17:00 Test Item Value Reference Range Interpretation Comments Monocytes (test code = Monocytes) 6.8 2.0-12.0 [facility] TexasDtzojpsFQNNKELVVK1876-38-63 09:17:00 Test Item Value Reference Range Interpretation Comments PROTIME (test code = PROTIME) 13.4 s 12.0-14.7 [facility] TexasNsepotoCDRYHVRBKX8718-52-17 09:17:00 Test Item Value Reference Range Interpretation Comments INR (test code = INR) 1.03 0.85-1.17 [facility] TexasRxgauzkKNANFIZEBV9653-12-32 09:17:00 Test Item Value Reference Range Interpretation Comments MPV (test code = MPV) 9.9 7.4-10.4 [facility] TexasWmszuobEYZGAVCHIQ7639-09-13 09:17:00 Test Item Value Reference Range Interpretation Comments Platelet (test code = Platelet) 221 133-450 [facility]XerpjxfHWAHLDCSUE3847-33-46 09:17:00 Test Item Value Reference Range Interpretation Comments MCHC (test code = MCHC) 32.7 32.0-36.0 [facility] TexasAeoagzwRNFPVYWDCH5873-44-40 09:17:00 Test Item Value Reference Range Interpretation Comments MCH (test code = MCH) 30.0 pg 27.0-31.0 [facility] TexasLaiuazkSOBGNUREZN3789-55-32 09:17:00 Test Item Value Reference Range Interpretation Comments RDW (test code = RDW) 14.7 11.5-14.5 [facility] TexasTwtqalhRZXFDJTSYD1221-42-41 09:17:00 Test Item Value Reference Range Interpretation Comments WBC X 10x3 (test code = WBC X 10x3) 6.1 3.7-10.4 [facility] TexasFbezzjaQHLPASIOMA6015-48-29 09:17:00 Test Item Value Reference Range Interpretation Comments RBC X 10x6 (test code = RBC X 10x6) 4.88 4.70-6.10 [place] 425574-02-25 09:17:00 Test Item Value Reference Range Interpretation Comments Hgb (test code = Hgb) 14.6 14.0-18.0 [facility] TexasPksqkpjVMNLHZZYZO3088-86-14 09:17:00 Test Item Value Reference Range Interpretation Comments MCV (test code = MCV) 91.6 80.0-94.0 [facility] TexasShqlyyiOXRREAVBLM2610-09-34 09:17:00 Test Item Value Reference Range Interpretation Comments Hct (test code = Hct) 44.6 42.0-54.0 [facility]2014-02-25 09:17:00 Test Item Value Reference Range Interpretation Comments Magnesium Lvl (test code = Magnesium 2.0 1.8-2.4 Lvl) [facility]2014-02-25 09:17:00 Test Item Value Reference Range Interpretation Comments Phosphorus (test code = Phosphorus) 2.5 2.5-4.5 [place] 998084-02-25 09:17:00 Test Item Value Reference Range Interpretation Comments Total Protein (test code = Total 7.3 6.4-8.4 Protein) [facility]2014-02-25 09:17:00 Test Item Value Reference Range Interpretation Comments Albumin Lvl (test code = Albumin Lvl) 2.7 3.5-5.0 [facility]2014-02-25 09:17:00 Test Item Value Reference Range Interpretation Comments ASPARTATE TRANSAMINASE 21 See_Comment [Aut omated message] (test code = ASPARTATE The s ystem which TRANSAMINASE) generated this result transmitted ref erence range: <=37. Th e reference range was not used to interpr et this result as normal/abnormal . [facility]2014-02-25 09:17:00 Test Item Value Reference Range Interpretation Comments Bili Total (test code = Bili Total) 0.6 0.2-1.3 [place] 998084-02-25 09:17:00 Test Item Value Reference Range Interpretation Comments Alk Phos (test code = Alk Phos) 108 39-136 [facility]2014-02-25 09:17:00 Test Item Value Reference Range Interpretation Comments ALANINE AMINOTRANSFERASE 20 See_Comment [A utomated message] (test code = ALANINE The sys tem which AMINOTRANSFERASE) generated this result transmitted ref erence range: <=65. Th e reference range was not used to int erpret this result as normal/abnormal . [facility]2014-02-25 09:17:00 Test Item Value Reference Range Interpretation Comments A/G Ratio (test code = A/G Ratio) 0.6 0.7-1.6 [facility]2014-02-25 09:17:00 Test Item Value Reference Range Interpretation Comments Globulin (test code = Globulin) 4.6 2.0-4.0 [facility]2014-02-25 09:17:00 Test Item Value Reference Range Interpretation Comments B/C Ratio (test code = B/C Ratio) 11 6-25 [facility] TexasAxsiaaxGSEGOTQXLD2801-69-67 09:17:00 Test Item Value Reference Range Interpretation Comments Basophils # (test code 0.0 See_Comment [Aut omated message] The = Basophils #) system which generated this result tra nsmitted reference range : <=0.2. The reference r jillian was not used to int erpret this result as normal/abnormal . [facility] TexasVfnclboXCSJWMJAAF2751-76-09 09:17:00 Test Item Value Reference Range Interpretation Comments Eosinophils # (test code 0.0 See_Comment [A utomated message] The = Eosinophils #) system whic h generated this result tra nsmitted reference range : <=0.5. The reference r jillian was not used to int erpret this result as normal/abnormal . [facility] TexasPvuemhxATNICHXZKL3131-71-74 09:17:00 Test Item Value Reference Range Interpretation Comments Monocytes # (test code 0.4 See_Comment [Aut omated message] The = Monocytes #) system which generated this result tra nsmitted reference range : <=0.8. The reference r jillian was not used to int erpret this result as normal/abnormal . [facility] TexasTqctcdvARAEQZRZPQ5010-93-20 09:17:00 Test Item Value Reference Range Interpretation Comments Lymphocytes (test code = Lymphocytes) 15.7 20.0-40.0 [facility] TexasAmqhenlQKRQLUSGPB7714-75-65 09:17:00 Test Item Value Reference Range Interpretation Comments Plt Morph (test code = Normal (11/23/2013 Plt Morph) 03:17:00 [facility] TexasLzyzxkfKSAOWSYUYL7387-06-49 09:17:00 Test Item Value Reference Range Interpretation Comments Segs (test code = Segs) 76.6 45.0-75.0 [facility]KpbgcdbVDHFCXFVBM5373-10-13 09:17:00 Test Item Value Reference Range Interpretation Comments Lymphocytes # (test code = Lymphocytes 1.0 1.0-5.5 #) [facility] TexasKgniroyNFDUWWLVRV9859-78-82 09:17:00 Test Item Value Reference Range Interpretation Comments Basophils (test code = 0.2 See_Comment [Aut omated message] The Basophils) system which ge nerated this result tra nsmitted reference range : <=1.0. The reference r jillian was not used to int erpret this result as normal/abnormal . [facility]XlgwcirGZZVKKUMSE3711-46-23 09:17:00 Test Item Value Reference Range Interpretation Comments Segs-Bands # (test code = Segs-Bands #) 4.7 1.5-8.1 [facility] TexasUobzyljGXAZAGKNZY8733-74-86 09:17:00 Test Item Value Reference Range Interpretation Comments RBC Morph (test code = Normal (11/23/2013 RBC Morph) 03:17:00 [facility] TexasQjehsacSFBTZQNUXM9276-80-50 09:17:00 Test Item Value Reference Range Interpretation Comments Eosinophils (test code = 0.7 See_Comment [A utomated message] The Eosinophils) system which ge nerated this result tra nsmitted reference range : <=4.0. The reference r jillian was not used to int erpret this result as normal/abnormal . [facility] TexasKbyhqknICCWYLNSIP0732-60-95 09:17:00 Test Item Value Reference Range Interpretation Comments Monocytes (test code = Monocytes) 6.8 2.0-12.0 [facility] TexasCluiydmYLFPJGMPKN1216-91-76 09:17:00 Test Item Value Reference Range Interpretation Comments PROTIME (test code = PROTIME) 13.4 s 12.0-14.7 [facility] TexasWhickooTSQHQJEBRV9910-27-56 09:17:00 Test Item Value Reference Range Interpretation Comments INR (test code = INR) 1.03 0.85-1.17 [facility] TexasObkwxfyKLVCMJBVQJ4092-06-27 09:17:00 Test Item Value Reference Range Interpretation Comments MPV (test code = MPV) 9.9 7.4-10.4 [facility] TexasXycubihPGTSOICPEO2182-88-04 09:17:00 Test Item Value Reference Range Interpretation Comments Platelet (test code = Platelet) 221 133-450 [facility] TexasXetwnaqQEXACXHCUS9914-77-18 09:17:00 Test Item Value Reference Range Interpretation Comments MCHC (test code = MCHC) 32.7 32.0-36.0 [facility] TexasJkppjuuTWWYRUPYAX9116-34-77 09:17:00 Test Item Value Reference Range Interpretation Comments MCH (test code = MCH) 30.0 pg 27.0-31.0 [facility] TexasYiwjmmvSOCGENWIZS9029-39-30 09:17:00 Test Item Value Reference Range Interpretation Comments RDW (test code = RDW) 14.7 11.5-14.5 [facility] TexasGdxupkpUKMNIGZCSC0797-52-39 09:17:00 Test Item Value Reference Range Interpretation Comments WBC X 10x3 (test code = WBC X 10x3) 6.1 3.7-10.4 [facility] TexasScqrbjnCIQOWEWTVD2105-82-08 09:17:00 Test Item Value Reference Range Interpretation Comments RBC X 10x6 (test code = RBC X 10x6) 4.88 4.70-6.10 [facility] TexasHetjxmbCMQOQPBFOP3635-56-66 09:17:00 Test Item Value Reference Range Interpretation Comments Hgb (test code = Hgb) 14.6 14.0-18.0 [facility] TexasWumwwtgANCFYCYHSD0240-76-99 09:17:00 Test Item Value Reference Range Interpretation Comments MCV (test code = MCV) 91.6 80.0-94.0 [facility] TexasPairbolPXFJJYIXNV4280-72-29 09:17:00 Test Item Value Reference Range Interpretation Comments Hct (test code = Hct) 44.6 42.0-54.0 [facility]2014-02-25 09:17:00 Test Item Value Reference Range Interpretation Comments Magnesium Lvl (test code = Magnesium 2.0 1.8-2.4 Lvl) [facility]2014-02-25 09:17:00 Test Item Value Reference Range Interpretation Comments Phosphorus (test code = Phosphorus) 2.5 2.5-4.5 [facility]2014-02-25 09:17:00 Test Item Value Reference Range Interpretation Comments Total Protein (test code = Total 7.3 6.4-8.4 Protein) [facility]2014-02-25 09:17:00 Test Item Value Reference Range Interpretation Comments Albumin Lvl (test code = Albumin Lvl) 2.7 3.5-5.0 [facility]2014-02-25 09:17:00 Test Item Value Reference Range Interpretation Comments ASPARTATE TRANSAMINASE (test code = 21 <=37 ASPARTATE TRANSAMINASE) [facility]2014-02-25 09:17:00 Test Item Value Reference Range Interpretation Comments Bili Total (test code = Bili Total) 0.6 0.2-1.3 [facility]2014-02-25 09:17:00 Test Item Value Reference Range Interpretation Comments Alk Phos (test code = Alk Phos) 108 39-136 [facility]2014-02-25 09:17:00 Test Item Value Reference Range Interpretation Comments ALANINE AMINOTRANSFERASE (test code = 20 <=65 ALANINE AMINOTRANSFERASE) [facility]2014-02-25 09:17:00 Test Item Value Reference Range Interpretation Comments A/G Ratio (test code = A/G Ratio) 0.6 0.7-1.6 [facility]2014-02-25 09:17:00 Test Item Value Reference Range Interpretation Comments Globulin (test code = Globulin) 4.6 2.0-4.0 [facility]2014-02-25 09:17:00 Test Item Value Reference Range Interpretation Comments B/C Ratio (test code = B/C Ratio) 11 6-25 [facility] TexasLlhqtsaTYENIPJGYZ6038-55-80 09:17:00 Test Item Value Reference Range Interpretation Comments Basophils # (test code = Basophils #) 0.0 <=0.2 [facility] TexasRqxjhufKLLPDUJDFQ3177-54-01 09:17:00 Test Item Value Reference Range Interpretation Comments Eosinophils # (test code = Eosinophils 0.0 <=0.5 #) [facility] TexasXiuizlzHTLPMOZTOK5370-95-13 09:17:00 Test Item Value Reference Range Interpretation Comments Monocytes # (test code = Monocytes #) 0.4 <=0.8 [place] 425574-02-25 09:17:00 Test Item Value Reference Range Interpretation Comments Lymphocytes (test code = Lymphocytes) 15.7 20.0-40.0 [facility] TexasUtnjtndSWLLLZKDAU5097-71-73 09:17:00 Test Item Value Reference Range Interpretation Comments Plt Morph (test code = Normal (11/23/2013 Plt Morph) 03:17:00 [facility]RicclgnINCVFRBTEN5140-96-19 09:17:00 Test Item Value Reference Range Interpretation Comments Segs (test code = Segs) 76.6 45.0-75.0 [facility] TexasGtlpotpTRNAWFLOFK7728-12-65 09:17:00 Test Item Value Reference Range Interpretation Comments Lymphocytes # (test code = Lymphocytes 1.0 1.0-5.5 #) [facility] [place]BgcvbtzBGHGUSMXUA4422-42-45 09:17:00 Test Item Value Reference Range Interpretation Comments Basophils (test code = Basophils) 0.2 <=1.0 [facility] TexasJqizexzHTNIKQKROU6030-23-09 09:17:00 Test Item Value Reference Range Interpretation Comments Segs-Bands # (test code = Segs-Bands #) 4.7 1.5-8.1 [facility] TexasTfwhoubZDHVJBCQDD3887-59-64 09:17:00 Test Item Value Reference Range Interpretation Comments RBC Morph (test code = Normal (11/23/2013 RBC Morph) 03:17:00 [facility]GmntfveYDFZVQZASE7443-07-32 09:17:00 Test Item Value Reference Range Interpretation Comments Eosinophils (test code = Eosinophils) 0.7 <=4.0 [facility] TexasFeetpjcHSJDBPAVNP3175-30-22 09:17:00 Test Item Value Reference Range Interpretation Comments Monocytes (test code = Monocytes) 6.8 2.0-12.0 [facility] TexasUsoixiaNTFSZIFOJX6104-33-92 09:17:00 Test Item Value Reference Range Interpretation Comments PROTIME (test code = PROTIME) 13.4 s 12.0-14.7 [facility] [place]PaflugxAFKIGRWRUS0350-81-48 09:17:00 Test Item Value Reference Range Interpretation Comments INR (test code = INR) 1.03 0.85-1.17 [facility] TexasQgwiyomTQNNMLBGQP4986-42-10 09:17:00 Test Item Value Reference Range Interpretation Comments MPV (test code = MPV) 9.9 7.4-10.4 [facility] TexasZrwxfchSIGGBTOZAC6927-91-93 09:17:00 Test Item Value Reference Range Interpretation Comments Platelet (test code = Platelet) 221 133-450 [facility] TexasXayvlaxATSIXZXNKK3839-86-05 09:17:00 Test Item Value Reference Range Interpretation Comments MCHC (test code = MCHC) 32.7 32.0-36.0 [facility] TexasAmcbgbkJRMAKXLTZE5190-97-90 09:17:00 Test Item Value Reference Range Interpretation Comments MCH (test code = MCH) 30.0 pg 27.0-31.0 [facility] TexasFnvxngbKZBIGDNAOY7875-67-07 09:17:00 Test Item Value Reference Range Interpretation Comments RDW (test code = RDW) 14.7 11.5-14.5 [facility] TexasBzkmvnqQIDELTAIPN6212-62-32 09:17:00 Test Item Value Reference Range Interpretation Comments WBC X 10x3 (test code = WBC X 10x3) 6.1 3.7-10.4 [facility] TexasZgdfzagWTURSVVMBJ0908-28-55 09:17:00 Test Item Value Reference Range Interpretation Comments RBC X 10x6 (test code = RBC X 10x6) 4.88 4.70-6.10 [facility] TexasWmkecenEIVJXFNRRL5369-27-92 09:17:00 Test Item Value Reference Range Interpretation Comments Hgb (test code = Hgb) 14.6 14.0-18.0 [facility] TexasBeodsgeRFSUNBVZNL4201-79-16 09:17:00 Test Item Value Reference Range Interpretation Comments MCV (test code = MCV) 91.6 80.0-94.0 [facility] TexasIsacwhmPBMIJQFMIY5783-34-70 09:17:00 Test Item Value Reference Range Interpretation Comments Hct (test code = Hct) 44.6 42.0-54.0 [facility]2014-02-25 09:17:00 Test Item Value Reference Range Interpretation Comments Magnesium Lvl (test code = Magnesium 2.0 1.8-2.4 Lvl) [facility]2014-02-25 09:17:00 Test Item Value Reference Range Interpretation Comments Phosphorus (test code = Phosphorus) 2.5 2.5-4.5 [facility]2014-02-25 09:17:00 Test Item Value Reference Range Interpretation Comments Total Protein (test code = Total 7.3 6.4-8.4 Protein) [facility]2014-02-25 09:17:00 Test Item Value Reference Range Interpretation Comments Albumin Lvl (test code = Albumin Lvl) 2.7 3.5-5.0 [facility]2014-02-25 09:17:00 Test Item Value Reference Range Interpretation Comments ASPARTATE TRANSAMINASE 21 See_Comment [Aut omated message] (test code = ASPARTATE The s ystem which TRANSAMINASE) generated this result transmitted ref erence range: <=37. Th e reference range was not used to interpr et this result as normal/abnormal . [facility]2014-02-25 09:17:00 Test Item Value Reference Range Interpretation Comments Bili Total (test code = Bili Total) 0.6 0.2-1.3 [facility]2014-02-25 09:17:00 Test Item Value Reference Range Interpretation Comments Magnesium Lvl (test code = Magnesium 2.0 1.8-2.4 Lvl) [facility]2014-02-25 09:17:00 Test Item Value Reference Range Interpretation Comments Phosphorus (test code = Phosphorus) 2.5 2.5-4.5 [facility]2014-02-25 09:17:00 Test Item Value Reference Range Interpretation Comments Total Protein (test code = Total 7.3 6.4-8.4 Protein) [facility]2014-02-25 09:17:00 Test Item Value Reference Range Interpretation Comments Albumin Lvl (test code = Albumin Lvl) 2.7 3.5-5.0 [facility]2014-02-25 09:17:00 Test Item Value Reference Range Interpretation Comments ASPARTATE TRANSAMINASE (test code = 21 <=37 ASPARTATE TRANSAMINASE) [facility]2014-02-25 09:17:00 Test Item Value Reference Range Interpretation Comments Bili Total (test code = Bili Total) 0.6 0.2-1.3 [facility]2014-02-25 09:17:00 Test Item Value Reference Range Interpretation Comments Alk Phos (test code = Alk Phos) 108 39-136 [facility]2014-02-25 09:17:00 Test Item Value Reference Range Interpretation Comments ALANINE AMINOTRANSFERASE (test code = 20 <=65 ALANINE AMINOTRANSFERASE) [place] [id number] 09:17:00 Test Item Value Reference Range Interpretation Comments A/G Ratio (test code = A/G Ratio) 0.6 0.7-1.6 [facility]2014-02-25 09:17:00 Test Item Value Reference Range Interpretation Comments Globulin (test code = Globulin) 4.6 2.0-4.0 [facility]2014-02-25 09:17:00 Test Item Value Reference Range Interpretation Comments B/C Ratio (test code = B/C Ratio) 11 03-23 [id number] 09:17:00 Test Item Value Reference Range Interpretation Comments Basophils # (test code = Basophils #) 0.0 <=0.2 [facility]LerrveaOPDXBCSARA8983-90-51 09:17:00 Test Item Value Reference Range Interpretation Comments Eosinophils # (test code = Eosinophils 0.0 <=0.5 #) [facility]YjvbugoGQZLWHQFJG2264-93-71 09:17:00 Test Item Value Reference Range Interpretation Comments Monocytes # (test code = Monocytes #) 0.4 <=0.8 [facility]MlhiwrpTBJUXBZKPU3381-23-79 09:17:00 Test Item Value Reference Range Interpretation Comments Lymphocytes (test code = Lymphocytes) 15.7 20.0-40.0 [facility]AzgcjnrEVODXVDXDS6851-14-47 09:17:00 Test Item Value Reference Range Interpretation Comments Plt Morph (test code = Normal (11/23/2013 Plt Morph) 03:17:00 [facility]) [facility]JqtkyrnYZJMHFGKPW0683-97-40 09:17:00 Test Item Value Reference Range Interpretation Comments Segs (test code = Segs) 76.6 45.0-75.0 [facility] TexasWqrfzzjYEZSNRLQYO7884-77-40 09:17:00 Test Item Value Reference Range Interpretation Comments Lymphocytes # (test code = Lymphocytes 1.0 1.0-5.5 #) [facility]XfanzpdVBDCYNTXMW6125-32-76 09:17:00 Test Item Value Reference Range Interpretation Comments Basophils (test code = Basophils) 0.2 <=1.0 [facility]MagxpmlNINFBXXCXM3424-78-75 09:17:00 Test Item Value Reference Range Interpretation Comments Segs-Bands # (test code = Segs-Bands #) 4.7 1.5-8.1 [facility]AzfnbqaDSTEPNJNOB9615-20-81 09:17:00 Test Item Value Reference Range Interpretation Comments RBC Morph (test code = Normal (11/23/2013 RBC Morph) 03:17:00 [facility]) [facility]RojmspcMLNGIEWANK3515-37-09 09:17:00 Test Item Value Reference Range Interpretation Comments Eosinophils (test code = Eosinophils) 0.7 <=4.0 [facility]MiimeegMAZMINVQPO2158-82-84 09:17:00 Test Item Value Reference Range Interpretation Comments Monocytes (test code = Monocytes) 6.8 2.0-12.0 [facility] TexasUabuwlcDBURHHWRWH7295-91-56 09:17:00 Test Item Value Reference Range Interpretation Comments PROTIME (test code = PROTIME) 13.4 s 12.0-14.7 [facility] TexasJitzsxbERJVNCPMUM7295-92-78 09:17:00 Test Item Value Reference Range Interpretation Comments INR (test code = INR) 1.03 0.85-1.17 [facility]XhuklncDJNWDRTOAM3582-41-88 09:17:00 Test Item Value Reference Range Interpretation Comments MPV (test code = MPV) 9.9 7.4-10.4 [facility] TexasCuywkbiJPSLPABTYG8684-93-47 09:17:00 Test Item Value Reference Range Interpretation Comments Platelet (test code = Platelet) 221 133-450 [facility] TexasEecsaibIBKIBBYTPL7057-09-61 09:17:00 Test Item Value Reference Range Interpretation Comments MCHC (test code = MCHC) 32.7 32.0-36.0 [facility] TexasTnopinjNCWRTSSYCI5705-12-28 09:17:00 Test Item Value Reference Range Interpretation Comments MCH (test code = MCH) 30.0 pg 27.0-31.0 [facility]YzslmwqYFUJWMCZPN5513-20-24 09:17:00 Test Item Value Reference Range Interpretation Comments RDW (test code = RDW) 14.7 11.5-14.5 [facility] TexasSenfjbwMGRDGFNXEQ3166-82-15 09:17:00 Test Item Value Reference Range Interpretation Comments WBC X 10x3 (test code = WBC X 10x3) 6.1 3.7-10.4 [facility]MdwrdutCTKQBGCJUP1533-84-78 09:17:00 Test Item Value Reference Range Interpretation Comments RBC X 10x6 (test code = RBC X 10x6) 4.88 4.70-6.10 [facility] HospitalYbvunztFPJMDKZEBQ9991-01-10 09:17:00 Test Item Value Reference Range Interpretation Comments Hgb (test code = Hgb) 14.6 14.0-18.0 [facility] HospitalJojykyoAPCJNMHCII8781-91-20 09:17:00 Test Item Value Reference Range Interpretation Comments MCV (test code = MCV) 91.6 80.0-94.0 [facility] HospitalNyijrkmCSVGZDKEFJ2232-41-21 09:17:00 Test Item Value Reference Range Interpretation Comments Hct (test code = Hct) 44.6 42.0-54.0 [facility] [employer]2014-02-25 04:30:00 Test Item Value Reference Range Interpretation Comments Total CK (test code = Total CK) 155 12-191 [facility] HospitalGraf[facility]2014-02-25 04:30:00 Test Item Value Reference Range Interpretation Comments CK MB (test code = CK MB) 0.9 0.5-3.6 [facility] HospitalGraf[facility]2014-02-25 04:30:00 Test Item Value Reference Range Interpretation Comments Troponin-I (test code no gt See_Comment [Auto mated message] The = Troponin-I) system which g enerated this result transmit cruz reference range : <=0.40. The reference r jillian was not used to interpr et this result as gee l/abnormal. [facility] 04:30:00 Test Item Value Reference Range Interpretation Comments Total CK (test code = Total CK) 155 12-191 [facility] HospitalGraf[facility]2014-02-25 04:30:00 Test Item Value Reference Range Interpretation Comments CK MB (test code = CK MB) 0.9 0.5-3.6 [facility] Hospital[facility]2014-02-25 04:30:00 Test Item Value Reference Range Interpretation Comments Troponin-I (test code no gt See_Comment [Auto mated message] The = Troponin-I) system which g enerated this result transmit cruz reference range : <=0.40. The reference r jillian was not used to interpr et this result as gee l/abnormal. [facility] [employer]2014-02-25 04:30:00 Test Item Value Reference Range Interpretation Comments Total CK (test code = Total CK) 155 12-191 [facility] [employer] [id number] 04:30:00 Test Item Value Reference Range Interpretation Comments CK MB (test code = CK MB) 0.9 0.5-3.6 [facility] NCLCannCARDIAC [id number] 04:30:00 Test Item Value Reference Range Interpretation Comments Troponin-I (test code no gt See_Comment [Auto mated message] The = Troponin-I) system which g enerated this result transmit cruz reference range : <=0.40. The reference r jillian was not used to interpr et this result as gee l/abnormal. [facility] [employer] [id number] 04:30:00 Test Item Value Reference Range Interpretation Comments Total CK (test code = Total CK) 155 [facility] HospitalNagisa,inc. [id number] 04:30:00 Test Item Value Reference Range Interpretation Comments CK MB (test code = CK MB) 0.9 0.5-3.6 [facility] [employer]AC [id number] 04:30:00 Test Item Value Reference Range Interpretation Comments Troponin-I (test code no gt See_Comment [Auto mated message] The = Troponin-I) system which g enerated this result transmit cruz reference range : <=0.40. The reference r jillian was not used to interpr et this result as gee l/abnormal. [facility] [employer] [id number] 04:30:00 Test Item Value Reference Range Interpretation Comments Total CK (test code = Total CK) 155 [facility] [employer] [id number] 04:30:00 Test Item Value Reference Range Interpretation Comments CK MB (test code = CK MB) 0.9 0.5-3.6 [facility] NCLCannLookmashAC [id number] 04:30:00 Test Item Value Reference Range Interpretation Comments Troponin-I (test code = Troponin-I) no gt <=0.40 [facility] [employer] [id number] 04:30:00 Test Item Value Reference Range Interpretation Comments Total CK (test code = Total CK) 155 12-191 [facility] [employer] [id number] 04:30:00 Test Item Value Reference Range Interpretation Comments CK MB (test code = CK MB) 0.9 0.5-3.6 [facility] HermannCARDIAC [id number] 04:30:00 Test Item Value Reference Range Interpretation Comments Troponin-I (test code = Troponin-I) no gt <=0.40 [facility] HermannCARDIAC [id number] 22:30:00 Test Item Value Reference Range Interpretation Comments Total CK (test code = Total CK) 142 12191 [facility] NCLCannCARDIAC [id number] 22:30:00 Test Item Value Reference Range Interpretation Comments CK MB (test code = CK MB) 0.8 0.5-3.6 [facility] HermannCARDIAC [id number] 22:30:00 Test Item Value Reference Range Interpretation Comments Troponin-I (test code no gt See_Comment [Auto mated message] The = Troponin-I) system which g enerated this result transmit cruz reference range : <=0.40. The reference r jillian was not used to interpr et this result as gee l/abnormal. [facility] NCLCannCARDIAC [id number] 22:30:00 Test Item Value Reference Range Interpretation Comments Total CK (test code = Total CK) 142 191 [facility] NCLCannCARDIAC [id number] 22:30:00 Test Item Value Reference Range Interpretation Comments CK MB (test code = CK MB) 0.8 0.5-3.6 [facility] HermannCARDIAC [id number] 22:30:00 Test Item Value Reference Range Interpretation Comments Troponin-I (test code no gt See_Comment [Auto mated message] The = Troponin-I) system which g enerated this result transmit cruz reference range : <=0.40. The reference r jillian was not used to interpr et this result as gee l/abnormal. [facility] NCLCannCARDIAC [id number] 22:30:00 Test Item Value Reference Range Interpretation Comments Total CK (test code = Total CK) 142 191 [facility] NCLCannCARDIAC [id number] 22:30:00 Test Item Value Reference Range Interpretation Comments CK MB (test code = CK MB) 0.8 0.5-3.6 [facility] HermannCARDIAC [id number] 22:30:00 Test Item Value Reference Range Interpretation Comments Troponin-I (test code no gt See_Comment [Auto mated message] The = Troponin-I) system which g enerated this result transmit cruz reference range : <=0.40. The reference r jillian was not used to interpr et this result as gee l/abnormal. [facility] [id number] 22:30:00 Test Item Value Reference Range Interpretation Comments Total CK (test code = Total CK) 142 -191 [facility]annC[facility] [id number] 22:30:00 Test Item Value Reference Range Interpretation Comments CK MB (test code = CK MB) 0.8 0.5-3.6 [facility] [id number] 22:30:00 Test Item Value Reference Range Interpretation Comments Troponin-I (test code no gt See_Comment [Auto mated message] The = Troponin-I) system which g enerated this result transmit cruz reference range : <=0.40. The reference r jillian was not used to interpr et this result as gee l/abnormal. [facility] NCLCannCARDIAC [id number] 22:30:00 Test Item Value Reference Range Interpretation Comments Total CK (test code = Total CK) 142 12-191 [facility] HermannCARDIAC [id number] 22:30:00 Test Item Value Reference Range Interpretation Comments CK MB (test code = CK MB) 0.8 0.5-3.6 [facility] [id number] 22:30:00 Test Item Value Reference Range Interpretation Comments Troponin-I (test code = Troponin-I) no gt <=0.40 [facility] NCLCannCARDIAC [id number] 22:30:00 Test Item Value Reference Range Interpretation Comments Total CK (test code = Total CK) 142 12-191 [facility] HermannCARDIAC [id number] 22:30:00 Test Item Value Reference Range Interpretation Comments CK MB (test code = CK MB) 0.8 0.5-3.6 [facility] [id number] 22:30:00 Test Item Value Reference Range Interpretation Comments Troponin-I (test code = Troponin-I) no gt <=0.40 [facility] NCLCannDRUG [id number] 22:00:00 Test Item Value Reference Range Interpretation Comments U Amph Scr (test code Negative *NA*(11/22/2013 = U Amph Scr) 16:00:00 [facility] [id number] 22:00:00 Test Item Value Reference Range Interpretation Comments U Cocaine Scr (test Positive code = U Cocaine Scr) *ABN*(11/22/2013 16:00:00 [facility]) [facility] [id number] 22:00:00 Test Item Value Reference Range Interpretation Comments U Opiate Scr (test Negative code = U Opiate Scr) *NA*(11/22/2013 16:00:00 [facility]) [facility] [id number] 22:00:00 Test Item Value Reference Range Interpretation Comments U Cannab Scr (test Negative code = U Cannab Scr) *NA*(11/22/2013 16:00:00 [facility]) [facility] [id number] 22:00:00 Test Item Value Reference Range Interpretation Comments U Benzodia Scr (test Negative code = U Benzodia Scr) *NA*(11/22/2013 16:00:00 [facility]) [facility] [id number] 22:00:00 Test Item Value Reference Range Interpretation Comments U Romy Scr (test code Negative *NA*(11/22/2013 = U Romy Scr) 16:00:00 [facility]) [facility] [id number] 22:00:00 Test Item Value Reference Range Interpretation Comments UDS Note (test code = See Note 8(11/22/2013 UDS Note) 16:00:00 [facility]) [facility] [id number] 22:00:00 Test Item Value Reference Range Interpretation Comments U Phencyc Scr (test Negative code = U Phencyc Scr) *NA*(11/22/2013 16:00:00 [facility]) [facility] [id number] 22:00:00 Test Item Value Reference Range Interpretation Comments UA Urobilinogen (test code = UA <=1.0 mg/dL 0.1-1.0 Urobilinogen) [facility] [id number] 22:00:00 Test Item Value Reference Range Interpretation Comments UA Sq Epi (test code = UA Sq Epi) None Seen [facility] [id number] 22:00:00 Test Item Value Reference Range Interpretation Comments UA Bili (test code = Negative *NA*(11/22/2013 UA Bili) 16:00:00 [facility]/[place]) [facility] AND [id number] 22:00:00 Test Item Value Reference Range Interpretation Comments UA Blood (test code = Small *ABN*(11/22/2013 UA Blood) 16:00:00 [facility]/[place]) [facility] AND [id number] 22:00:00 Test Item Value Reference Range Interpretation Comments UA Nitrite (test code Negative (11/22/2013 = UA Nitrite) 16:00:00 [facility] [id number] 22:00:00 Test Item Value Reference Range Interpretation Comments UA WBC (test code = 1 See_Comment [Automa cruz message] The UA WBC) system which ge nerated this result transmit cruz reference range : <=5. The reference range was not used to interpr et this result as gee l/abnormal. [facility] [id number] 22:00:00 Test Item Value Reference Range Interpretation Comments UA Leuk Est (test Negative (11/22/2013 code = UA Leuk Est) 16:00:00 [facility] [id number] 22:00:00 Test Item Value Reference Range Interpretation Comments UA RBC (test code = 1 See_Comment [Automa cruz message] The UA RBC) system which ge nerated this result transmit cruz reference range : <=2. The reference range was not used to interpr et this result as gee l/abnormal. [facility] [id number] 22:00:00 Test Item Value Reference Range Interpretation Comments UA Mucus (test code = UA Mucus) Few /LPF [facility] [id number] 22:00:00 Test Item Value Reference Range Interpretation Comments UA Bacteria (test code = UA Occasional /HPF Bacteria) [facility] [id number] 22:00:00 Test Item Value Reference Range Interpretation Comments UA Turbidity (test code = Clear (11/22/2013 UA Turbidity) 16:00:00 [facility]) [facility] [id number] 22:00:00 Test Item Value Reference Range Interpretation Comments UA Color (test code = Light Yellow UA Color) *NA*(11/22/2013 16:00:00 [facility]/[place]) [facility] AND [id number] 22:00:00 Test Item Value Reference Range Interpretation Comments UA Spec Grav (test code = UA Spec Grav) 1.009 [facility] AND [id number] 22:00:00 Test Item Value Reference Range Interpretation Comments UA Glucose (test code = UA Glucose) 70 mg/dL [facility] AND [id number] 22:00:00 Test Item Value Reference Range Interpretation Comments UA Protein (test code = UA >=300 mg/dL Protein) [facility] AND [id number] 22:00:00 Test Item Value Reference Range Interpretation Comments UA pH (test code = UA pH) 6.0 5.0-8.0 [facility] AND [id number] 22:00:00 Test Item Value Reference Range Interpretation Comments UA Ketones (test code = UA Negative mg/dL Ketones) [facility] [id number] 22:00:00 Test Item Value Reference Range Interpretation Comments U Amph Scr (test code Negative *NA*(11/22/2013 = U Amph Scr) 16:00:00 [facility] [id number] 22:00:00 Test Item Value Reference Range Interpretation Comments U Cocaine Scr (test Positive code = U Cocaine Scr) *ABN*(11/22/2013 16:00:00 [facility]/[place]) [facility]DR[facility] [id number] 22:00:00 Test Item Value Reference Range Interpretation Comments U Opiate Scr (test Negative code = U Opiate Scr) *NA*(11/22/2013 16:00:00 [facility]/[place]) [facility] [id number] 22:00:00 Test Item Value Reference Range Interpretation Comments U Cannab Scr (test Negative code = U Cannab Scr) *NA*(11/22/2013 16:00:00 [facility]/[place]) [facility] [id number] 22:00:00 Test Item Value Reference Range Interpretation Comments U Benzodia Scr (test Negative code = U Benzodia Scr) *NA*(11/22/2013 16:00:00 [facility]) [facility] [id number] 22:00:00 Test Item Value Reference Range Interpretation Comments U Romy Scr (test code Negative *NA*(11/22/2013 = U Romy Scr) 16:00:00 [facility]) [facility] [id number] 22:00:00 Test Item Value Reference Range Interpretation Comments UDS Note (test code = See Note 8(11/22/2013 UDS Note) 16:00:00 [facility]) [facility] [id number] 22:00:00 Test Item Value Reference Range Interpretation Comments U Phencyc Scr (test Negative code = U Phencyc Scr) *NA*(11/22/2013 16:00:00 [facility]) [facility] [id number] 22:00:00 Test Item Value Reference Range Interpretation Comments UA Urobilinogen (test code = UA <=1.0 mg/dL 0.1-1.0 Urobilinogen) [facility] [id number] 22:00:00 Test Item Value Reference Range Interpretation Comments UA Sq Epi (test code = UA Sq Epi) None Seen [facility] [id number] 22:00:00 Test Item Value Reference Range Interpretation Comments UA Bili (test code = Negative *NA*(11/22/2013 UA Bili) 16:00:00 [facility]) [facility] [id number] 22:00:00 Test Item Value Reference Range Interpretation Comments UA Blood (test code = Small *ABN*(11/22/2013 UA Blood) 16:00:00 [facility]) [facility] [id number] 22:00:00 Test Item Value Reference Range Interpretation Comments UA Nitrite (test code Negative (11/22/2013 = UA Nitrite) 16:00:00 [facility]) [facility] [id number] 22:00:00 Test Item Value Reference Range Interpretation Comments UA WBC (test code = 1 See_Comment [Automa cruz message] The UA WBC) system which ge nerated this result transmit cruz reference range : <=5. The reference range was not used to interpr et this result as gee l/abnormal. [facility] [id number] 22:00:00 Test Item Value Reference Range Interpretation Comments UA Leuk Est (test Negative (11/22/2013 code = UA Leuk Est) 16:00:00 [facility]/[place]) [facility] AND [id number] 22:00:00 Test Item Value Reference Range Interpretation Comments UA RBC (test code = 1 See_Comment [Automa cruz message] The UA RBC) system which ge nerated this result transmit cruz reference range : <=2. The reference range was not used to interpr et this result as gee l/abnormal. [facility] [id number] 22:00:00 Test Item Value Reference Range Interpretation Comments UA Mucus (test code = UA Mucus) Few /LPF [facility] AND [id number] 22:00:00 Test Item Value Reference Range Interpretation Comments UA Bacteria (test code = UA Occasional /HPF Bacteria) [facility] [id number] 22:00:00 Test Item Value Reference Range Interpretation Comments UA Turbidity (test code = Clear (11/22/2013 UA Turbidity) 16:00:00 [facility]/[place]) [facility] [id number] 22:00:00 Test Item Value Reference Range Interpretation Comments UA Color (test code = Light Yellow UA Color) *NA*(11/22/2013 16:00:00 Dia/Mcallen) [facility] AND [id number] 22:00:00 Test Item Value Reference Range Interpretation Comments UA Spec Grav (test code = UA Spec Grav) 1.009 [facility] [id number] 22:00:00 Test Item Value Reference Range Interpretation Comments UA Glucose (test code = UA Glucose) 70 mg/dL [facility] [id number] 22:00:00 Test Item Value Reference Range Interpretation Comments UA Protein (test code = UA >=300 mg/dL Protein) [facility] [id number] 22:00:00 Test Item Value Reference Range Interpretation Comments UA pH (test code = UA pH) 6.0 5.0-8.0 [facility] [id number] 22:00:00 Test Item Value Reference Range Interpretation Comments UA Ketones (test code = UA Negative mg/dL Ketones) [facility] [id number] 22:00:00 Test Item Value Reference Range Interpretation Comments U Amph Scr (test code Negative *NA*(11/22/2013 = U Amph Scr) 16:00:00 [facility] [id number] 22:00:00 Test Item Value Reference Range Interpretation Comments U Cocaine Scr (test Positive code = U Cocaine Scr) *ABN*(11/22/2013 16:00:00 [facility]call[facility] [id number] 22:00:00 Test Item Value Reference Range Interpretation Comments U Opiate Scr (test Negative code = U Opiate Scr) *NA*(11/22/2013 16:00:00 [facility]Mcallen) [facility] [id number] 22:00:00 Test Item Value Reference Range Interpretation Comments U Cannab Scr (test Negative code = U Cannab Scr) *NA*(11/22/2013 16:00:00 [facility]call[place]) [facility] [id number] 22:00:00 Test Item Value Reference Range Interpretation Comments U Benzodia Scr (test Negative code = U Benzodia Scr) *NA*(11/22/2013 16:00:00 [facility]ia[facility]Mcallen) [facility] [id number] 22:00:00 Test Item Value Reference Range Interpretation Comments U Romy Scr (test code Negative *NA*(11/22/2013 = U Romy Scr) 16:00:00 [facility]call[place]) [facility] [id number] 22:00:00 Test Item Value Reference Range Interpretation Comments UDS Note (test code = See Note 8(11/22/2013 UDS Note) 16:00:00 [facility]call[facility]) [facility] [id number] 22:00:00 Test Item Value Reference Range Interpretation Comments U Phencyc Scr (test Negative code = U Phencyc Scr) *NA*(11/22/2013 16:00:00 [facility]call[place]) [facility] [id number] 22:00:00 Test Item Value Reference Range Interpretation Comments UA Urobilinogen (test code = UA <=1.0 mg/dL 0.1-1.0 Urobilinogen) [facility] [id number] 22:00:00 Test Item Value Reference Range Interpretation Comments UA Sq Epi (test code = UA Sq Epi) None [facility]en [facility] [id number] 22:00:00 Test Item Value Reference Range Interpretation Comments UA Bili (test code = Negative *NA*(11/22/2013 UA Bili) 16:00:00 [facility]call[place]) [facility] [id number] 22:00:00 Test Item Value Reference Range Interpretation Comments UA Blood (test code = Small *ABN*(11/22/2013 UA Blood) 16:00:00 [facility]call[place]) [facility] [id number] 22:00:00 Test Item Value Reference Range Interpretation Comments UA Nitrite (test code Negative (11/22/2013 = UA Nitrite) 16:00:00 [facility]) [facility] [id number] 22:00:00 Test Item Value Reference Range Interpretation Comments UA WBC (test code = 1 See_Comment [Automa cruz message] The UA WBC) system which ge nerated this result transmit cruz reference range : <=5. The reference range was not used to interpr et this result as gee l/abnormal. [facility] [id number] 22:00:00 Test Item Value Reference Range Interpretation Comments UA Leuk Est (test Negative (11/22/2013 code = UA Leuk Est) 16:00:00 [facility]call[place]) [facility] [id number] 22:00:00 Test Item Value Reference Range Interpretation Comments UA RBC (test code = 1 See_Comment [Automa cruz message] The UA RBC) system which ge nerated this result transmit cruz reference range : <=2. The reference range was not used to interpr et this result as gee l/abnormal. [facility] [id number] 22:00:00 Test Item Value Reference Range Interpretation Comments UA Mucus (test code = UA Mucus) Few /LPF [facility] [id number] 22:00:00 Test Item Value Reference Range Interpretation Comments UA Bacteria (test code = UA Occasional /HPF Bacteria) [facility] [id number] 22:00:00 Test Item Value Reference Range Interpretation Comments UA Turbidity (test code = Clear (11/22/2013 UA Turbidity) 16:00:00 [facility]call[place]) [facility] [id number] 22:00:00 Test Item Value Reference Range Interpretation Comments UA Color (test code = Light Yellow UA Color) *NA*(11/22/2013 16:00:00 Dia/Mcallen) [facility] AND [id number] 22:00:00 Test Item Value Reference Range Interpretation Comments UA Spec Grav (test code = UA Spec Grav) 1.009 [facility] AND [id number] 22:00:00 Test Item Value Reference Range Interpretation Comments UA Glucose (test code = UA Glucose) 70 mg/dL [facility] AND [id number] 22:00:00 Test Item Value Reference Range Interpretation Comments UA Protein (test code = UA >=300 mg/dL Protein) [facility] AND [id number] 22:00:00 Test Item Value Reference Range Interpretation Comments UA pH (test code = UA pH) 6.0 5.0-8.0 [facility] AND [id number] 22:00:00 Test Item Value Reference Range Interpretation Comments UA Ketones (test code = UA Negative mg/dL Ketones) [facility] [id number] 22:00:00 Test Item Value Reference Range Interpretation Comments U Amph Scr (test code Negative *NA*(11/22/2013 = U Amph Scr) 16:00:00 [facility]call[place]) [facility] [id number] 22:00:00 Test Item Value Reference Range Interpretation Comments U Cocaine Scr (test Positive code = U Cocaine Scr) *ABN*(11/22/2013 16:00:00 [facility]call[place]) [facility] [id number] 22:00:00 Test Item Value Reference Range Interpretation Comments U Opiate Scr (test Negative code = U Opiate Scr) *NA*(11/22/2013 16:00:00 [facility]call[place]) [facility] [id number] 22:00:00 Test Item Value Reference Range Interpretation Comments U Cannab Scr (test Negative code = U Cannab Scr) *NA*(11/22/2013 16:00:00 [facility]Mcallen) [facility] [id number] 22:00:00 Test Item Value Reference Range Interpretation Comments U Benzodia Scr (test Negative code = U Benzodia Scr) *NA*(11/22/2013 16:00:00 [facility]Mcallen) [facility] [id number] 22:00:00 Test Item Value Reference Range Interpretation Comments U Romy Scr (test code Negative *NA*(11/22/2013 = U Romy Scr) 16:00:00 [facility]ia/Mcallen) [facility] [id number] 22:00:00 Test Item Value Reference Range Interpretation Comments UDS Note (test code = See Note 8(11/22/2013 UDS Note) 16:00:00 [facility]ia/Mcallen) [facility] [id number] 22:00:00 Test Item Value Reference Range Interpretation Comments U Phencyc Scr (test Negative code = U Phencyc Scr) *NA*(11/22/2013 16:00:00 [facility]ia[facility]Mcallen) [facility] [id number] 22:00:00 Test Item Value Reference Range Interpretation Comments UA Urobilinogen (test code = UA <=1.0 mg/dL 0.1-1.0 Urobilinogen) [facility] [id number] 22:00:00 Test Item Value Reference Range Interpretation Comments UA Sq Epi (test code = UA Sq Epi) None Seen [facility] [id number] 22:00:00 Test Item Value Reference Range Interpretation Comments UA Bili (test code = Negative *NA*(11/22/2013 UA Bili) 16:00:00 [facility]call[place]) [facility] [id number] 22:00:00 Test Item Value Reference Range Interpretation Comments UA Blood (test code = Small *ABN*(11/22/2013 UA Blood) 16:00:00 [facility]/Mcallen) [facility] [id number] 22:00:00 Test Item Value Reference Range Interpretation Comments UA Nitrite (test code Negative (11/22/2013 = UA Nitrite) 16:00:00 [facility]call[place]) [facility] [id number] 22:00:00 Test Item Value Reference Range Interpretation Comments UA WBC (test code = 1 See_Comment [Automa cruz message] The UA WBC) system which ge nerated this result transmit cruz reference range : <=5. The reference range was not used to interpr et this result as gee l/abnormal. [facility] [id number] 22:00:00 Test Item Value Reference Range Interpretation Comments UA Leuk Est (test Negative (11/22/2013 code = UA Leuk Est) 16:00:00 [facility]/[place]callen) [facility] AND [id number] 22:00:00 Test Item Value Reference Range Interpretation Comments UA RBC (test code = 1 See_Comment [Automa cruz message] The UA RBC) system which ge nerated this result transmit cruz reference range : <=2. The reference range was not used to interpr et this result as gee l/abnormal. [facility] AND [id number] 22:00:00 Test Item Value Reference Range Interpretation Comments UA Mucus (test code = UA Mucus) Few /LPF [facility] AND [id number] 22:00:00 Test Item Value Reference Range Interpretation Comments UA Bacteria (test code = UA Occasional /HPF Bacteria) [facility] AND [id number] 22:00:00 Test Item Value Reference Range Interpretation Comments UA Turbidity (test code = Clear (11/22/2013 UA Turbidity) 16:00:00 [facility]/Mcallen) [facility] AND [id number] 22:00:00 Test Item Value Reference Range Interpretation Comments UA Color (test code = Light Yellow UA Color) *NA*(11/22/2013 16:00:00 Dia/Mcallen) [facility] AND [id number] 22:00:00 Test Item Value Reference Range Interpretation Comments UA Spec Grav (test code = UA Spec Grav) 1.009 [facility] AND [id number] 22:00:00 Test Item Value Reference Range Interpretation Comments UA Glucose (test code = UA Glucose) 70 mg/dL [facility] AND [id number] 22:00:00 Test Item Value Reference Range Interpretation Comments UA Protein (test code = UA >=300 mg/dL Protein) [facility] AND [id number] 22:00:00 Test Item Value Reference Range Interpretation Comments UA pH (test code = UA pH) 6.0 5.0-8.0 [facility] AND [id number] 22:00:00 Test Item Value Reference Range Interpretation Comments UA Ketones (test code = UA Negative mg/dL Ketones) [facility] [id number] 22:00:00 Test Item Value Reference Range Interpretation Comments U Amph Scr (test code Negative *NA*(11/22/2013 = U Amph Scr) 16:00:00 [facility]Mcallen) [facility] [id number] 22:00:00 Test Item Value Reference Range Interpretation Comments U Cocaine Scr (test Positive code = U Cocaine Scr) *ABN*(11/22/2013 16:00:00 [facility]) [facility] [id number] 22:00:00 Test Item Value Reference Range Interpretation Comments U Opiate Scr (test Negative code = U Opiate Scr) *NA*(11/22/2013 16:00:00 [facility]ia/Mcallen) [facility] [id number] 22:00:00 Test Item Value Reference Range Interpretation Comments U Cannab Scr (test Negative code = U Cannab Scr) *NA*(11/22/2013 16:00:00 [facility]) [facility] [id number] 22:00:00 Test Item Value Reference Range Interpretation Comments U Benzodia Scr (test Negative code = U Benzodia Scr) *NA*(11/22/2013 16:00:00 [facility]ia/Mcallen) [facility] [id number] 22:00:00 Test Item Value Reference Range Interpretation Comments U Romy Scr (test code Negative *NA*(11/22/2013 = U Romy Scr) 16:00:00 [facility]) [facility] [id number] 22:00:00 Test Item Value Reference Range Interpretation Comments UDS Note (test code = See Note 8(11/22/2013 UDS Note) 16:00:00 [facility]) [facility] [id number] 22:00:00 Test Item Value Reference Range Interpretation Comments U Phencyc Scr (test Negative code = U Phencyc Scr) *NA*(11/22/2013 16:00:00 [facility]ia/Mcallen) [facility] [id number] 22:00:00 Test Item Value Reference Range Interpretation Comments UA Urobilinogen (test code = UA <=1.0 mg/dL 0.1-1.0 Urobilinogen) [facility] [id number] 22:00:00 Test Item Value Reference Range Interpretation Comments UA Sq Epi (test code = UA Sq Epi) None Seen [facility] [id number] 22:00:00 Test Item Value Reference Range Interpretation Comments UA Bili (test code = Negative *NA*(11/22/2013 UA Bili) 16:00:00 [facility]) [facility] [id number] 22:00:00 Test Item Value Reference Range Interpretation Comments UA Blood (test code = Small *ABN*(11/22/2013 UA Blood) 16:00:00 Dia/Mcallen) [facility] [id number] 22:00:00 Test Item Value Reference Range Interpretation Comments UA Nitrite (test code Negative (11/22/2013 = UA Nitrite) 16:00:00 [facility]/[place]call[place]) [facility] [id number] 22:00:00 Test Item Value Reference Range Interpretation Comments UA WBC (test code = UA WBC) 1 <=5 [facility] [id number] 22:00:00 Test Item Value Reference Range Interpretation Comments UA Leuk Est (test Negative (11/22/2013 code = UA Leuk Est) 16:00:00 [facility]/[place]) [facility] [id number] 22:00:00 Test Item Value Reference Range Interpretation Comments UA RBC (test code = UA RBC) 1 <=2 [facility] [id number] 22:00:00 Test Item Value Reference Range Interpretation Comments UA Mucus (test code = UA Mucus) Few /LPF [facility] [id number] 22:00:00 Test Item Value Reference Range Interpretation Comments UA Bacteria (test code = UA Occasional /HPF Bacteria) [facility] [id number] 22:00:00 Test Item Value Reference Range Interpretation Comments UA Turbidity (test code = Clear (11/22/2013 UA Turbidity) 16:00:00 [facility]) [facility] [id number] 22:00:00 Test Item Value Reference Range Interpretation Comments UA Color (test code = Light Yellow UA Color) *NA*(11/22/2013 16:00:00 [facility]ia/[place]call[place]) [facility] [id number] 22:00:00 Test Item Value Reference Range Interpretation Comments UA Spec Grav (test code = UA Spec Grav) 1.009 [facility] AND [id number] 22:00:00 Test Item Value Reference Range Interpretation Comments UA Glucose (test code = UA Glucose) 70 mg/dL [facility] AND [id number] 22:00:00 Test Item Value Reference Range Interpretation Comments UA Protein (test code = UA >=300 mg/dL Protein) [facility] AND [id number] 22:00:00 Test Item Value Reference Range Interpretation Comments UA pH (test code = UA pH) 6.0 5.0-8.0 [facility] AND [id number] 22:00:00 Test Item Value Reference Range Interpretation Comments UA Ketones (test code = UA Negative mg/dL Ketones) [facility] [id number] 22:00:00 Test Item Value Reference Range Interpretation Comments U Amph Scr (test code Negative *NA*(11/22/2013 = U Amph Scr) 16:00:00 [facility]/[place]) [facility] [id number] 22:00:00 Test Item Value Reference Range Interpretation Comments U Cocaine Scr (test Positive code = U Cocaine Scr) *ABN*(11/22/2013 16:00:00 [facility]ia/[place]) [facility] [id number] 22:00:00 Test Item Value Reference Range Interpretation Comments U Opiate Scr (test Negative code = U Opiate Scr) *NA*(11/22/2013 16:00:00 [facility]ia/[place]call[place]) [facility] [id number] 22:00:00 Test Item Value Reference Range Interpretation Comments U Cannab Scr (test Negative code = U Cannab Scr) *NA*(11/22/2013 16:00:00 [facility]ia/[place]) [facility] [id number] 22:00:00 Test Item Value Reference Range Interpretation Comments U Benzodia Scr (test Negative code = U Benzodia Scr) *NA*(11/22/2013 16:00:00 [facility]ia/[place]call[place]) [facility] [id number] 22:00:00 Test Item Value Reference Range Interpretation Comments U Romy Scr (test code Negative *NA*(11/22/2013 = U Romy Scr) 16:00:00 [facility]ia/Mcallen) [facility] [id number] 22:00:00 Test Item Value Reference Range Interpretation Comments UDS Note (test code = See Note 8(11/22/2013 UDS Note) 16:00:00 [facility]) [facility] [id number] 22:00:00 Test Item Value Reference Range Interpretation Comments U Phencyc Scr (test Negative code = U Phencyc Scr) *NA*(11/22/2013 16:00:00 [facility]) [facility] [id number] 22:00:00 Test Item Value Reference Range Interpretation Comments UA Urobilinogen (test code = UA <=1.0 mg/dL 0.1-1.0 Urobilinogen) [facility] [id number] 22:00:00 Test Item Value Reference Range Interpretation Comments UA Sq Epi (test code = UA Sq Epi) None Seen [facility] [id number] 22:00:00 Test Item Value Reference Range Interpretation Comments UA Bili (test code = Negative *NA*(11/22/2013 UA Bili) 16:00:00 [facility]) [facility] [id number] 22:00:00 Test Item Value Reference Range Interpretation Comments UA Blood (test code = Small *ABN*(11/22/2013 UA Blood) 16:00:00 [facility]) [facility] [id number] 22:00:00 Test Item Value Reference Range Interpretation Comments UA Nitrite (test code Negative (11/22/2013 = UA Nitrite) 16:00:00 [facility]) [facility] [id number] 22:00:00 Test Item Value Reference Range Interpretation Comments UA WBC (test code = UA WBC) 1 <=5 [facility] [id number] 22:00:00 Test Item Value Reference Range Interpretation Comments UA Leuk Est (test Negative (11/22/2013 code = UA Leuk Est) 16:00:00 [facility]) [facility] [id number] 22:00:00 Test Item Value Reference Range Interpretation Comments UA RBC (test code = UA RBC) 1 <=2 [facility] [id number] 22:00:00 Test Item Value Reference Range Interpretation Comments UA Mucus (test code = UA Mucus) Few /LPF [facility] AND [id number] 22:00:00 Test Item Value Reference Range Interpretation Comments UA Bacteria (test code = UA Occasional /HPF Bacteria) [facility] AND [id number] 22:00:00 Test Item Value Reference Range Interpretation Comments UA Turbidity (test code = Clear (11/22/2013 UA Turbidity) 16:00:00 Dia/Mcallen) [facility] AND [id number] 22:00:00 Test Item Value Reference Range Interpretation Comments UA Color (test code = Light Yellow UA Color) *NA*(11/22/2013 16:00:00 Dia/Mcallen) [facility] AND [id number] 22:00:00 Test Item Value Reference Range Interpretation Comments UA Spec Grav (test code = UA Spec Grav) 1.009 [facility] AND [id number] 22:00:00 Test Item Value Reference Range Interpretation Comments UA Glucose (test code = UA Glucose) 70 mg/dL [facility] AND [id number] 22:00:00 Test Item Value Reference Range Interpretation Comments UA Protein (test code = UA >=300 mg/dL Protein) [facility] AND [id number] 22:00:00 Test Item Value Reference Range Interpretation Comments UA pH (test code = UA pH) 6.0 5.0-8.0 [facility] AND [id number] 22:00:00 Test Item Value Reference Range Interpretation Comments UA Ketones (test code = UA Negative mg/dL Ketones) [facility] [id number] 18:46:00 Test Item Value Reference Range Interpretation Comments Total CK (test code = Total CK) 85 12-191 [facility] [id number] 18:46:00 Test Item Value Reference Range Interpretation Comments CK MB (test code = CK MB) no gt 0.5-3.6 [facility] [id number] 18:46:00 Test Item Value Reference Range Interpretation Comments Troponin-I (test code no gt See_Comment [Auto mated message] The = Troponin-I) system which g enerated this result transmit cruz reference range : <=0.40. The reference r jillian was not used to interpr et this result as gee l/abnormal. [facility] CenterCARD[facility] [id number] 18:46:00 Test Item Value Reference Range Interpretation Comments CK-MB INDEX (test no gt See_Comment [Automate d message] The code = CK-MB INDEX) system w [facility] generated this result transmit cruz reference range : <=2.5. The reference range was not used to interpr et this result as gee l/abnormal. [id number] 18:46:00 Test Item Value Reference Range Interpretation Comments PROTIME (test code = PROTIME) 12.9 s 12.0-14.7 [id number] 18:46:00 Test Item Value Reference Range Interpretation Comments INR (test code = INR) 0.98 0.85-1.17 [id number] 18:46:00 Test Item Value Reference Range Interpretation Comments aPTT (test code = aPTT) 28.6 s 22.9-35.8 [facility] [id number] 18:46:00 Test Item Value Reference Range Interpretation Comments Eosinophils # (test code 0.1 See_Comment [A utomated message] The = Eosinophils #) system [facility] generated this result tra nsmitted reference range : <=0.5. The reference r jillian was not used to int erpret this result as normal/abnormal . [facility] [id number] 18:46:00 Test Item Value Reference Range Interpretation Comments Monocytes # (test code 0.7 See_Comment [Aut omated message] The = Monocytes #) system which generated this result tra nsmitted reference range : <=0.8. The reference r jillian was not used to int erpret this result as normal/abnormal . [facility] [id number] 18:46:00 Test Item Value Reference Range Interpretation Comments Eosinophils (test code = 1.3 See_Comment [A utomated message] The Eosinophils) system which ge nerated this result tra nsmitted reference range : <=4.0. The reference r jillian was not used to int erpret this result as normal/abnormal . [facility] [id number] 18:46:00 Test Item Value Reference Range Interpretation Comments Monocytes (test code = Monocytes) 7.6 2.0-12.0 [id number] 18:46:00 Test Item Value Reference Range Interpretation Comments Lymphocytes (test code = Lymphocytes) 25.0 20.0-40.0 [facility] [id number] 18:46:00 Test Item Value Reference Range Interpretation Comments Basophils (test code = 0.4 See_Comment [Aut omated message] The Basophils) system which ge nerated this result tra nsmitted reference range : <=1.0. The reference r jillian was not used to int erpret this result as normal/abnormal . [facility] [id number] 18:46:00 Test Item Value Reference Range Interpretation Comments Lymphocytes # (test code = Lymphocytes 2.3 1.0-5.5 #) [facility]SreyephHKTBCTSPBW9016-81-76 18:46:00 Test Item Value Reference Range Interpretation Comments Segs-Bands # (test code = Segs-Bands #) 6.2 1.5-8.1 [facility]QyvdpujQSRJCYIIRD7664-44-92 18:46:00 Test Item Value Reference Range Interpretation Comments Segs (test code = Segs) 65.7 45.0-75.[address] [facility]StoreeYHFLHWP5153-58-59 18:46:00 Test Item Value Reference Range Interpretation Comments Total CK (test code = Total CK) 85 12-[address] [facility] WXORGXI8955-11-54 18:46:00 Test Item Value Reference Range Interpretation Comments CK MB (test code = CK MB) no gt 0.5-3.[address] [facility] [id number] 18:46:00 Test Item Value Reference Range Interpretation Comments Troponin-I (test code no gt See_Comment [Auto mated message] The = Troponin-I) system which g enerated this result transmit cruz reference range : <=0.40. The reference r jillian was not used to interpr et this result as gee l/abnormal. [facility] TVYBFEMLS0818-27-10 18:46:00 Test Item Value Reference Range Interpretation Comments CK-MB INDEX (test no gt See_Comment [Automate d message] The code = CK-MB INDEX) system w [facility] generated this result transmit cruz reference range : <=2.5. The reference range was not used to interpr et this result as gee l/abnormal. [facility] TexasRgajeyiLTOCWTNWXC5711-10-12 18:46:00 Test Item Value Reference Range Interpretation Comments PROTIME (test code = PROTIME) 12.9 s 12.0-14.7 [facility] TexasStrmxlvUFSDDBZBAK7865-44-56 18:46:00 Test Item Value Reference Range Interpretation Comments INR (test code = INR) 0.98 0.85-1.17 [facility] TexasUgqngvhBIHPGZJFUL7145-30-99 18:46:00 Test Item Value Reference Range Interpretation Comments aPTT (test code = aPTT) 28.6 s 22.9-35.8 [facility] TexasAcvsuqtLSBVIGWGEO8289-10-99 18:46:00 Test Item Value Reference Range Interpretation Comments Eosinophils # (test code 0.1 See_Comment [A utomated message] The = Eosinophils #) system whic h generated this result tra nsmitted reference range : <=0.5. The reference r jillian was not used to int erpret this result as normal/abnormal . [facility] TexasVpdycbpXVOCKXUZRV3715-58-29 18:46:00 Test Item Value Reference Range Interpretation Comments Monocytes # (test code 0.7 See_Comment [Aut omated message] The = Monocytes #) system which generated this result tra nsmitted reference range : <=0.8. The reference r jillian was not used to int erpret this result as normal/abnormal . [facility] TexasRrfgvrxNTLJRNHXGF1963-50-84 18:46:00 Test Item Value Reference Range Interpretation Comments Eosinophils (test code = 1.3 See_Comment [A utomated message] The Eosinophils) system which ge nerated this result tra nsmitted reference range : <=4.0. The reference r jillian was not used to int erpret this result as normal/abnormal . [facility] TexasRnxbsmoAWEIWMSZVP6633-30-90 18:46:00 Test Item Value Reference Range Interpretation Comments Monocytes (test code = Monocytes) 7.6 2.0-12.0 [facility] TexasBsugzozZQBBPDKAUU5035-50-88 18:46:00 Test Item Value Reference Range Interpretation Comments Lymphocytes (test code = Lymphocytes) 25.0 20.0-40.0 [facility] TexasYytotlhXYQHPHUQLL2260-13-24 18:46:00 Test Item Value Reference Range Interpretation Comments Basophils (test code = 0.4 See_Comment [Aut omated message] The Basophils) system which ge nerated this result tra nsmitted reference range : <=1.0. The reference r jillian was not used to int erpret this result as normal/abnormal . [facility] HospitalXrggdwdFOXHIEPLYP3319-77-52 18:46:00 Test Item Value Reference Range Interpretation Comments Lymphocytes # (test code = Lymphocytes 2.3 1.0-5.5 #) [facility] CenterQnesssyVIFREZFWIZ5324-40-17 18:46:00 Test Item Value Reference Range Interpretation Comments Segs-Bands # (test code = Segs-Bands #) 6.2 1.5-8.1 [facility] HospitalLknjljtMQUWRYBEFM5991-22-36 18:46:00 Test Item Value Reference Range Interpretation Comments Segs (test code = Segs) 65.7 45.0-75.0 [facility] HospitalGrafighters2014-02-24 18:46:00 Test Item Value Reference Range Interpretation Comments Total CK (test code = Total CK) 85 12-191 [facility] HospitalGrafighters2014-02-24 18:46:00 Test Item Value Reference Range Interpretation Comments CK MB (test code = CK MB) no gt 0.5-3.6 [facility] CenteriSoccerStoreePZPMOFV8272-72-23 18:46:00 Test Item Value Reference Range Interpretation Comments Troponin-I (test code no gt See_Comment [Auto mated message] The = Troponin-I) system which g enerated this result transmit cruz reference range : <=0.40. The reference r jillian was not used to interpr et this result as gee l/abnormal. [facility] HospitalGrafighters2014-02-24 18:46:00 Test Item Value Reference Range Interpretation Comments CK-MB INDEX (test no gt See_Comment [Automate d message] The code = CK-MB INDEX) system w [facility] generated this result transmit cruz reference range : <=2.5. The reference range was not used to interpr et this result as gee l/abnormal. [facility] CenterWgbcpdsMSDOLANYMB3316-76-60 18:46:00 Test Item Value Reference Range Interpretation Comments PROTIME (test code = PROTIME) 12.9 s 12.0-14.7 [facility] HospitalHmmvaajQGLVVKWITJ8701-49-93 18:46:00 Test Item Value Reference Range Interpretation Comments INR (test code = INR) 0.98 0.85-1.17 [facility]WwlkgupOTOVXVREUI9491-43-61 18:46:00 Test Item Value Reference Range Interpretation Comments aPTT (test code = aPTT) 28.6 s 22.9-35.8 [facility] TexasJbeeuruIAFVOLSGBD7860-64-99 18:46:00 Test Item Value Reference Range Interpretation Comments Eosinophils # (test code 0.1 See_Comment [A utomated message] The = Eosinophils #) system whic h generated this result tra nsmitted reference range : <=0.5. The reference r jillian was not used to int erpret this result as normal/abnormal . [facility] TexasCgeumyqISUMCYOBJP2096-27-86 18:46:00 Test Item Value Reference Range Interpretation Comments Monocytes # (test code 0.7 See_Comment [Aut omated message] The = Monocytes #) system which generated this result tra nsmitted reference range : <=0.8. The reference r jillian was not used to int erpret this result as normal/abnormal . [facility] TexasMgnqlqqVISEACJXTH1295-00-08 18:46:00 Test Item Value Reference Range Interpretation Comments Eosinophils (test code = 1.3 See_Comment [A utomated message] The Eosinophils) system which ge nerated this result tra nsmitted reference range : <=4.0. The reference r jillian was not used to int erpret this result as normal/abnormal . [facility] TexasKscjdacPZLPKPGJMW0725-33-08 18:46:00 Test Item Value Reference Range Interpretation Comments Monocytes (test code = Monocytes) 7.6 2.0-12.0 [facility] TexasQlardutJMIZLNUGJN9783-76-31 18:46:00 Test Item Value Reference Range Interpretation Comments Lymphocytes (test code = Lymphocytes) 25.0 20.0-40.0 [facility] TexasLniohcwEXQZAPZFBV6167-02-20 18:46:00 Test Item Value Reference Range Interpretation Comments Basophils (test code = 0.4 See_Comment [Aut omated message] The Basophils) system which ge nerated this result tra nsmitted reference range : <=1.0. The reference r jillian was not used to int erpret this result as normal/abnormal . [facility] TexasGvyujijSISNMNCKTL0602-62-39 18:46:00 Test Item Value Reference Range Interpretation Comments Lymphocytes # (test code = Lymphocytes 2.3 1.0-5.5 #) [facility]QpxavdqCRXEMBOINA8344-62-75 18:46:00 Test Item Value Reference Range Interpretation Comments Segs-Bands # (test code = Segs-Bands #) 6.2 1.5-8.1 [facility] TexasQrsorkxWKRKWPTHYX4630-93-04 18:46:00 Test Item Value Reference Range Interpretation Comments Segs (test code = Segs) 65.7 45.0-75.[address] [facility] DEGGLNL4404-64-31 18:46:00 Test Item Value Reference Range Interpretation Comments Total CK (test code = Total CK) 85 12-[address] [facility] MONIMRS1545-34-25 18:46:00 Test Item Value Reference Range Interpretation Comments CK MB (test code = CK MB) no gt 0.5-3.[address] [facility] DGKNDCT3061-11-26 18:46:00 Test Item Value Reference Range Interpretation Comments Troponin-I (test code no gt See_Comment [Auto mated message] The = Troponin-I) system which g enerated this result transmit cruz reference range : <=0.40. The reference r jillian was not used to interpr et this result as gee l/abnormal. [facility] JNZYBIP2645-32-95 18:46:00 Test Item Value Reference Range Interpretation Comments CK-MB INDEX (test no gt See_Comment [Automate d message] The code = CK-MB INDEX) system w [facility] generated this result transmit cruz reference range : <=2.5. The reference range was not used to interpr et this result as gee l/abnormal. [facility] TexasIictyxlLLLGTPOXIU7117-79-22 18:46:00 Test Item Value Reference Range Interpretation Comments PROTIME (test code = PROTIME) 12.9 s 12.0-14.7 [facility] TexasZwbewhxVYYTLXPAHH0644-81-13 18:46:00 Test Item Value Reference Range Interpretation Comments INR (test code = INR) 0.98 0.85-1.17 [facility] TexasAazlmtgMJOKWHISWP1994-99-54 18:46:00 Test Item Value Reference Range Interpretation Comments aPTT (test code = aPTT) 28.6 s 22.9-35.8 [facility] TexasSigmmpgHINGQOYSJT9198-26-36 18:46:00 Test Item Value Reference Range Interpretation Comments Eosinophils # (test code 0.1 See_Comment [A utomated message] The = Eosinophils #) system whic h generated this result tra nsmitted reference range : <=0.5. The reference r jillian was not used to int erpret this result as normal/abnormal . [facility] TexasTslwoakFAREVVTZZK6591-00-56 18:46:00 Test Item Value Reference Range Interpretation Comments Monocytes # (test code 0.7 See_Comment [Aut omated message] The = Monocytes #) system which generated this result tra nsmitted reference range : <=0.8. The reference r jillian was not used to int erpret this result as normal/abnormal . [facility] TexasFjgvitkCOINOWMSXO6444-68-38 18:46:00 Test Item Value Reference Range Interpretation Comments Eosinophils (test code = 1.3 See_Comment [A utomated message] The Eosinophils) system which ge nerated this result tra nsmitted reference range : <=4.0. The reference r jillian was not used to int erpret this result as normal/abnormal . [facility]VaxfbnbXEBNDYOFEL7713-21-46 18:46:00 Test Item Value Reference Range Interpretation Comments Monocytes (test code = Monocytes) 7.6 2.0-12.0 [facility]WkwmfbbNKBCDXBOGC2556-15-76 18:46:00 Test Item Value Reference Range Interpretation Comments Lymphocytes (test code = Lymphocytes) 25.0 20.0-40.0 [facility] TexasWfkycaaUIJTWDUUBP0718-35-23 18:46:00 Test Item Value Reference Range Interpretation Comments Basophils (test code = 0.4 See_Comment [Aut omated message] The Basophils) system which ge nerated this result tra nsmitted reference range : <=1.0. The reference r jillian was not used to int erpret this result as normal/abnormal . [facility] TexasDstkwsgHWPBHVHRSS1205-85-16 18:46:00 Test Item Value Reference Range Interpretation Comments Lymphocytes # (test code = Lymphocytes 2.3 1.0-5.5 #) [facility] TexasLkuvkuwWXJGOZFNNB1419-60-63 18:46:00 Test Item Value Reference Range Interpretation Comments Segs-Bands # (test code = Segs-Bands #) 6.2 1.5-8.1 [facility]QoulgfpUHLMDGXUYW8400-22-15 18:46:00 Test Item Value Reference Range Interpretation Comments Segs (test code = Segs) 65.7 45.0-75.[address] [facility] GMBOBEY7243-79-90 18:46:00 Test Item Value Reference Range Interpretation Comments Total CK (test code = Total CK) 85 12-[address] [facility] ETEIHVZ9738-76-48 18:46:00 Test Item Value Reference Range Interpretation Comments CK MB (test code = CK MB) no gt 0.5-3.[address] [facility] PYJLGTL4594-87-39 18:46:00 Test Item Value Reference Range Interpretation Comments Troponin-I (test code = Troponin-I) no gt <=0.[address] [facility] WRYBWSA5176-63-10 18:46:00 Test Item Value Reference Range Interpretation Comments CK-MB INDEX (test code = CK-MB INDEX) no gt <=2.5 [facility]RakfjvhSHAFIDJWGF2777-10-45 18:46:00 Test Item Value Reference Range Interpretation Comments PROTIME (test code = PROTIME) 12.9 s 12.0-14.7 [facility] RegionYqtjpqzWJWEHODBFP5855-11-81 18:46:00 Test Item Value Reference Range Interpretation Comments INR (test code = INR) 0.98 0.85-1.17 [facility] RegionUsgpkdbVWQULWBUQE4707-19-85 18:46:00 Test Item Value Reference Range Interpretation Comments aPTT (test code = aPTT) 28.6 s 22.9-35.8 [facility] RegionOqbuodyYOBJJMAMTN1875-43-05 18:46:00 Test Item Value Reference Range Interpretation Comments Eosinophils # (test code = Eosinophils 0.1 <=0.5 #) [facility] RegionIdwobydNWCAQXXZWN9799-33-32 18:46:00 Test Item Value Reference Range Interpretation Comments Monocytes # (test code = Monocytes #) 0.7 <=0.8 [facility] RegionSskgpiaQPQIYQDPDK5776-00-75 18:46:00 Test Item Value Reference Range Interpretation Comments Eosinophils (test code = Eosinophils) 1.3 <=4.0 [facility] RegionLcajnctEZAWRQQIHC5942-34-75 18:46:00 Test Item Value Reference Range Interpretation Comments Monocytes (test code = Monocytes) 7.6 2.0-12.0 [facility] RegionTikvffgQJFPEUSYNI6711-42-97 18:46:00 Test Item Value Reference Range Interpretation Comments Lymphocytes (test code = Lymphocytes) 25.0 20.0-40.0 [facility] HospitalKohxdisFMIBYGVCJS8678-55-26 18:46:00 Test Item Value Reference Range Interpretation Comments Basophils (test code = Basophils) 0.[address] [facility] HospitalLyopfirKKVJXLMLTU1769-42-72 18:46:00 Test Item Value Reference Range Interpretation Comments Lymphocytes # (test code = Lymphocytes 2.3 1.0-5.5 #) [facility] HospitalFqokjuoXPTTOBAKAJ2724-05-80 18:46:00 Test Item Value Reference Range Interpretation Comments Segs-Bands # (test code = Segs-Bands #) 6.2 1.5-8.1 [facility] HospitalYnkelgbIEILBJLUPO1169-11-75 18:46:00 Test Item Value Reference Range Interpretation Comments Segs (test code = Segs) 65.7 45.0-75.0 [facility] HospitalannCARDIAC XMFOVXT3011-77-84 18:46:00 Test Item Value Reference Range Interpretation Comments Total CK (test code = Total CK) 85 12-191 [facility] HospitalannCARModus Indoor Skate ParkAC CRXBTYD0050-53-80 18:46:00 Test Item Value Reference Range Interpretation Comments CK MB (test code = CK MB) no gt 0.5-3.6 [facility] HospitalannCARAC VBCNYWK1957-94-87 18:46:00 Test Item Value Reference Range Interpretation Comments Troponin-I (test code = Troponin-I) no gt <=0.40 [facility] HospitalannCARAC PYPVEWL1537-24-59 18:46:00 Test Item Value Reference Range Interpretation Comments CK-MB INDEX (test code = CK-MB INDEX) no gt <=2.5 [facility] HospitalGdibdkdXXVJTGPPIQ9871-11-83 18:46:00 Test Item Value Reference Range Interpretation Comments PROTIME (test code = PROTIME) 12.9 s 12.0-14.7 [facility] HospitalVfzioniURHPLTQOSZ2088-09-91 18:46:00 Test Item Value Reference Range Interpretation Comments INR (test code = INR) 0.98 0.85-1.17 [facility] HospitalXtwyyjqFKXZPKWLHK3491-44-05 18:46:00 Test Item Value Reference Range Interpretation Comments aPTT (test code = aPTT) 28.6 s 22.9-35.8 [facility] HospitalBalbwckPRFCPVFWCR3675-66-25 18:46:00 Test Item Value Reference Range Interpretation Comments Eosinophils # (test code = Eosinophils 0.1 <=0.5 #) [facility]DezrohcCMRQAWOQRB8515-62-06 18:46:00 Test Item Value Reference Range Interpretation Comments Monocytes # (test code = Monocytes #) 0.7 <=0.8 [facility]QlgfjumYRPLPJOJCI1122-04-45 18:46:00 Test Item Value Reference Range Interpretation Comments Eosinophils (test code = Eosinophils) 1.3 <=4.0 [facility] TexasMdcysplAJRULMBDVP9833-11-13 18:46:00 Test Item Value Reference Range Interpretation Comments Monocytes (test code = Monocytes) 7.6 2.0-12.0 [facility]XjsrfoeBRXCVNYTNY2127-50-60 18:46:00 Test Item Value Reference Range Interpretation Comments Lymphocytes (test code = Lymphocytes) 25.0 20.0-40.0 [facility] TexasWkwkhkbZJGSOXBWZT3436-13-02 18:46:00 Test Item Value Reference Range Interpretation Comments Basophils (test code = Basophils) 0.4 <=1.0 [facility] TexasGqmnxyaOKENZPIFDP4980-46-63 18:46:00 Test Item Value Reference Range Interpretation Comments Lymphocytes # (test code = Lymphocytes 2.3 1.0-5.5 #) [facility]KrnrdhyVLDQHKHCNX9471-34-51 18:46:00 Test Item Value Reference Range Interpretation Comments Segs-Bands # (test code = Segs-Bands #) 6.2 1.5-8.1 [facility] TexasKpeolfkJMFMDPXKNT6550-90-29 18:46:00 Test Item Value Reference Range Interpretation Comments Segs (test code = Segs) 65.7 45.0-75.0 [facility] CenterEbiikrnCLSZWTVYA8041-71-07 12:00:00 Test Item Value Reference Range Interpretation Comments Calcium Lvl (test code = Calcium Lvl) 7.7 8.5-10.5 L [facility] CenterYlhbhahOFYGWRPOW9747-00-82 12:00:00 Test Item Value Reference Range Interpretation Comments Potassium Lvl (test code = Potassium 4.0 3.5-5.1 N Lvl) [facility] CenterGflhkvaLJSYRMEGZ1904-67-29 12:00:00 Test Item Value Reference Range Interpretation Comments Sodium Lvl (test code = Sodium Lvl) 140 135-145 N [facility] CenterKcyfrttWRTJAYDSZ6369-67-39 12:00:00 Test Item Value Reference Range Interpretation Comments CO2 (test code = CO2) 23 24-32 L [facility] CenterYptqtncHIWQSFJJG0374-88-65 12:00:00 Test Item Value Reference Range Interpretation Comments Chloride Lvl (test code = Chloride Lvl) 102 95-109 N [facility] CenterHnvuzfvSVMPVCBST1416-35-77 12:00:00 Test Item Value Reference Range Interpretation Comments AGAP (test code = AGAP) 19.0 10.0-20.0 N [facility] CenterYfspdoyGTZZMRDZK8084-30-74 12:00:00 Test Item Value Reference Range Interpretation Comments Glucose Lvl (test code = Glucose Lvl) 124 70-99 H [facility] CenterRekqamlEJZPBHMPN9724-54-78 12:00:00 Test Item Value Reference Range Interpretation Comments BUN (test code = BUN) 25 7-22 H [facility] CenterSeebuzkCYWZTDVUS6085-22-15 12:00:00 Test Item Value Reference Range Interpretation Comments Creatinine Lvl (test code = Creatinine 2.2 0.5-1.4 H Lvl) [facility] CenterPvexhquHBOYWRBRU2560-78-34 12:00:00 Test Item Value Reference Range Interpretation Comments Calcium Lvl (test code = Calcium Lvl) 7.7 8.5-10.5 L [facility] CenterYvephmuEBNHZDBPT9672-84-74 12:00:00 Test Item Value Reference Range Interpretation Comments Potassium Lvl (test code = Potassium 4.0 3.5-5.1 N Lvl) [facility] CenterEfjtpsvMXPFKPMWI2137-03-05 12:00:00 Test Item Value Reference Range Interpretation Comments Sodium Lvl (test code = Sodium Lvl) 140 135-145 N [facility] CenterDmjppqfCCNIPQVQQ4729-28-20 12:00:00 Test Item Value Reference Range Interpretation Comments CO2 (test code = CO2) 23 24-32 L [facility] CenterKxpovvkUQBGUXBZI3114-53-45 12:00:00 Test Item Value Reference Range Interpretation Comments Chloride Lvl (test code = Chloride Lvl) 102 95-109 N [facility] CenterEborfixSFNGAANWR2863-22-72 12:00:00 Test Item Value Reference Range Interpretation Comments AGAP (test code = AGAP) 19.0 10.0-20.0 N [facility] CenterQmfefwwXDVHQZYRD5114-72-61 12:00:00 Test Item Value Reference Range Interpretation Comments Glucose Lvl (test code = Glucose Lvl) 124 70-99 H [facility] CenterMgswztxKFGXLZRLB5375-43-57 12:00:00 Test Item Value Reference Range Interpretation Comments BUN (test code = BUN) 25 7-22 H [facility] CenterBgjmdxuQYWNNZRQS1156-21-10 12:00:00 Test Item Value Reference Range Interpretation Comments Creatinine Lvl (test code = Creatinine 2.2 0.5-1.4 H Lvl) [facility] CenterZzfxbdhKSKOFRFHW3076-13-11 12:00:00 Test Item Value Reference Range Interpretation Comments Calcium Lvl (test code = Calcium Lvl) 7.7 8.5-10.5 L [facility] CenterMkrkudrRIUTXATJU8899-01-10 12:00:00 Test Item Value Reference Range Interpretation Comments Potassium Lvl (test code = Potassium 4.0 3.5-5.1 N Lvl) [facility] CenterUgtcqqoQGQBJZNLZ3400-84-46 12:00:00 Test Item Value Reference Range Interpretation Comments Sodium Lvl (test code = Sodium Lvl) 140 135-145 N [facility] CenterSafffiySBWERYXWB7006-82-58 12:00:00 Test Item Value Reference Range Interpretation Comments CO2 (test code = CO2) 23 24-32 L [facility] CenterCzgdvoyAVSDAEDFC9583-33-30 12:00:00 Test Item Value Reference Range Interpretation Comments Chloride Lvl (test code = Chloride Lvl) 102 95-109 N [facility] CenterMjzgcuqUTJJAUTNN4942-09-99 12:00:00 Test Item Value Reference Range Interpretation Comments AGAP (test code = AGAP) 19.0 10.0-20.0 N [facility] CenterSvihcwwJAEABLNPN1574-60-98 12:00:00 Test Item Value Reference Range Interpretation Comments Glucose Lvl (test code = Glucose Lvl) 124 70-99 H [facility] CenterEsmiuetVLCEPRAZS5981-02-36 12:00:00 Test Item Value Reference Range Interpretation Comments BUN (test code = BUN) 25 7-22 H [facility] CenterUrfmkprOPCNFCRPY2742-09-63 12:00:00 Test Item Value Reference Range Interpretation Comments Creatinine Lvl (test code = Creatinine 2.2 0.5-1.4 H Lvl) [facility] CenterXxxnwlyRCTLFYBJG2807-55-59 12:00:00 Test Item Value Reference Range Interpretation Comments Calcium Lvl (test code = Calcium Lvl) 7.7 8.5-10.5 L [facility] CenterNuibfxoJMBGIULLB7468-65-27 12:00:00 Test Item Value Reference Range Interpretation Comments Potassium Lvl (test code = Potassium 4.0 3.5-5.1 N Lvl) [facility] CenterMubechfYKKNMZRQD8037-30-04 12:00:00 Test Item Value Reference Range Interpretation Comments Sodium Lvl (test code = Sodium Lvl) 140 135-145 N [facility] CenterQasafpxQKHCXKCQH5252-24-56 12:00:00 Test Item Value Reference Range Interpretation Comments CO2 (test code = CO2) 23 24-32 L [facility] CenterAxvppwgREBYKDAPQ3906-41-02 12:00:00 Test Item Value Reference Range Interpretation Comments Chloride Lvl (test code = Chloride Lvl) 102 95-109 N [facility] CenterKphmpnhGQPHHTFVL3024-28-84 12:00:00 Test Item Value Reference Range Interpretation Comments AGAP (test code = AGAP) 19.0 10.0-20.0 N [facility] CenterIwtrqchFQPZBJNBE6779-85-88 12:00:00 Test Item Value Reference Range Interpretation Comments Glucose Lvl (test code = Glucose Lvl) 124 70-99 H [facility] CenterZwyrmwbVUVGFPNLD6203-48-60 12:00:00 Test Item Value Reference Range Interpretation Comments BUN (test code = BUN) 25 7-22 H [facility] CenterRyyeybdQZZGZBRJI0222-94-28 12:00:00 Test Item Value Reference Range Interpretation Comments Creatinine Lvl (test code = Creatinine 2.2 0.5-1.4 H Lvl) [facility] CenterFsuewicJTPNXEXWV8697-09-87 12:00:00 Test Item Value Reference Range Interpretation Comments Calcium Lvl (test code = Calcium Lvl) 7.7 8.5-10.5 [facility] CenterAmwioztXFFRPOQXM6959-66-02 12:00:00 Test Item Value Reference Range Interpretation Comments Potassium Lvl (test code = Potassium 4.0 3.5-5.1 N Lvl) [facility]NjymudgNRIGSNSRE5330-53-58 12:00:00 Test Item Value Reference Range Interpretation Comments Sodium Lvl (test code = Sodium Lvl) 140 135-145 N [facility] CenterTtrjmqeTDILVQNLC3751-56-29 12:00:00 Test Item Value Reference Range Interpretation Comments CO2 (test code = CO2) 23 24-32 L [facility] CenterLpyluviVYEXYCXMM3353-35-22 12:00:00 Test Item Value Reference Range Interpretation Comments Chloride Lvl (test code = Chloride Lvl) 102 95-109 N [facility] CenterZefzvsbHJNCQWHYH3391-79-60 12:00:00 Test Item Value Reference Range Interpretation Comments AGAP (test code = AGAP) 19.0 10.0-20.0 N [facility] CenterGfdnlytFHEIGLZII0770-86-96 12:00:00 Test Item Value Reference Range Interpretation Comments Glucose Lvl (test code = Glucose Lvl) 124 70-99 H [facility] CenterOodmiqzHVVOBMAZK0047-16-97 12:00:00 Test Item Value Reference Range Interpretation Comments BUN (test code = BUN) 25 7-22 H [facility] CenterJuicsswZDZVNARHH4926-95-14 12:00:00 Test Item Value Reference Range Interpretation Comments Creatinine Lvl (test code = Creatinine 2.2 0.5-1.4 H Lvl) [facility] CenterShzpmcoFCMSWLMQT0785-95-98 12:00:00 Test Item Value Reference Range Interpretation Comments Calcium Lvl (test code = Calcium Lvl) 7.7 8.5-10.5 L [facility] CenterEihoiqbYAAEPCOWL8684-91-90 12:00:00 Test Item Value Reference Range Interpretation Comments Potassium Lvl (test code = Potassium 4.0 3.5-5.1 N Lvl) [facility] CenterJbcpxdqOHNPIMPNW1180-33-87 12:00:00 Test Item Value Reference Range Interpretation Comments Sodium Lvl (test code = Sodium Lvl) 140 135-145 N [facility] CenterOwosakdUIZCKBMJL4089-94-46 12:00:00 Test Item Value Reference Range Interpretation Comments CO2 (test code = CO2) 23 24-32 L [facility] CenterWzevecuJBPJCHZJQ1228-19-10 12:00:00 Test Item Value Reference Range Interpretation Comments Chloride Lvl (test code = Chloride Lvl) 102 95-109 N [facility] CenterFfgzhnnUZPTSSFNX4347-45-29 12:00:00 Test Item Value Reference Range Interpretation Comments AGAP (test code = AGAP) 19.0 10.0-20.0 N [facility] CenterQfhehvjPBKTKUBPF0534-25-58 12:00:00 Test Item Value Reference Range Interpretation Comments Glucose Lvl (test code = Glucose Lvl) 124 70-99 H [facility] CenterUgvhcedRKNVEWADI8464-75-15 12:00:00 Test Item Value Reference Range Interpretation Comments BUN (test code = BUN) 25 7-22 H [facility] CenterQsfwbidVPJTZKNXH6664-71-33 12:00:00 Test Item Value Reference Range Interpretation Comments Creatinine Lvl (test code = Creatinine 2.2 0.5-1.4 H Lvl) [facility] CenterVukpeyvHIRXFQLEF3405-33-42 22:17:00 Test Item Value Reference Range Interpretation Comments Calcium Lvl (test code = Calcium Lvl) 7.9 8.5-10.5 L [facility] CenterFiqxkexGBNVUDGWZ2736-64-58 22:17:00 Test Item Value Reference Range Interpretation Comments AGAP (test code = AGAP) 18.5 10.0-20.0 N [facility] CenterTdlcqshUYXQLJYRZ5270-82-00 22:17:00 Test Item Value Reference Range Interpretation Comments CO2 (test code = CO2) 21 24-32 L [facility] CenterSutdtheFZPSCYIAI1344-48-28 22:17:00 Test Item Value Reference Range Interpretation Comments Glucose Lvl (test code = Glucose Lvl) 77 70-99 N [facility] CenterRediidnZRXVPNGMN0386-22-17 22:17:00 Test Item Value Reference Range Interpretation Comments BUN (test code = BUN) 24 7-22 H [facility] CenterOrdwblmGQGLEWHIR2591-82-94 22:17:00 Test Item Value Reference Range Interpretation Comments Creatinine Lvl (test code = Creatinine 1.8 0.5-1.4 H Lvl) [facility] CenterUhizyxyAZWLPGTGA2580-10-12 22:17:00 Test Item Value Reference Range Interpretation Comments Sodium Lvl (test code = Sodium Lvl) 140 135-145 N [facility] CenterOgmlpnuTHZOGSJAW7010-82-13 22:17:00 Test Item Value Reference Range Interpretation Comments Potassium Lvl (test code = Potassium 4.5 3.5-5.1 N Lvl) [facility] CenterIubhmfxLUQESTLOR1338-81-87 22:17:00 Test Item Value Reference Range Interpretation Comments Chloride Lvl (test code = Chloride Lvl) 105 95-109 N [facility] CenterOqpuvvpNWCFKWKGD1851-12-75 22:17:00 Test Item Value Reference Range Interpretation Comments Calcium Lvl (test code = Calcium Lvl) 7.9 8.5-10.5 L [facility] CenterDzuckltOKFPCXLVI1013-03-91 22:17:00 Test Item Value Reference Range Interpretation Comments AGAP (test code = AGAP) 18.5 10.0-20.0 N [facility] CenterXljldcyUMDVBQSTC1710-85-60 22:17:00 Test Item Value Reference Range Interpretation Comments CO2 (test code = CO2) 21 24-32 L [facility] CenterLcxexpsHKLHSOSCI2973-49-85 22:17:00 Test Item Value Reference Range Interpretation Comments Glucose Lvl (test code = Glucose Lvl) 77 70-99 N [facility] CenterDrwwqqlXKGUIUGKK5498-82-31 22:17:00 Test Item Value Reference Range Interpretation Comments BUN (test code = BUN) 24 7-22 H [facility] CenterKlwxmlwFGRHRRXTA6630-89-80 22:17:00 Test Item Value Reference Range Interpretation Comments Creatinine Lvl (test code = Creatinine 1.8 0.5-1.4 H Lvl) [facility] CenterBketwauWGUNKMXIL0472-60-39 22:17:00 Test Item Value Reference Range Interpretation Comments Sodium Lvl (test code = Sodium Lvl) 140 135-145 N [facility] CenterGhwrafsBTNWFONPW0125-55-38 22:17:00 Test Item Value Reference Range Interpretation Comments Potassium Lvl (test code = Potassium 4.5 3.5-5.1 N Lvl) [facility] CenterNozokwhCUCTWRCTD9999-47-88 22:17:00 Test Item Value Reference Range Interpretation Comments Chloride Lvl (test code = Chloride Lvl) 105 95-109 N [facility] CenterPfzarrzRMOLRMNTT3550-14-73 22:17:00 Test Item Value Reference Range Interpretation Comments Calcium Lvl (test code = Calcium Lvl) 7.9 8.5-10.5 L [facility] CenterErjtlalDZXXFFJVF4934-70-20 22:17:00 Test Item Value Reference Range Interpretation Comments AGAP (test code = AGAP) 18.5 10.0-20.0 N [facility] CenterMjyvmmrHHCJHXJGN9837-87-59 22:17:00 Test Item Value Reference Range Interpretation Comments CO2 (test code = CO2) 21 24-32 L [facility] CenterZudmecsEBIKDCBBV2092-30-94 22:17:00 Test Item Value Reference Range Interpretation Comments Glucose Lvl (test code = Glucose Lvl) 77 70-99 N [facility] CenterTcracjqGHUUDVLCH4931-84-75 22:17:00 Test Item Value Reference Range Interpretation Comments BUN (test code = BUN) 24 7-22 H [facility] CenterTcgsykiFMCUHUPCP3521-15-82 22:17:00 Test Item Value Reference Range Interpretation Comments Creatinine Lvl (test code = Creatinine 1.8 0.5-1.4 H Lvl) [facility] CenterJfgymnmLPJMYFXEQ7989-61-92 22:17:00 Test Item Value Reference Range Interpretation Comments Sodium Lvl (test code = Sodium Lvl) 140 135-145 N [facility] CenterNmnmubzRHDQBGUFN1795-12-78 22:17:00 Test Item Value Reference Range Interpretation Comments Potassium Lvl (test code = Potassium 4.5 3.5-5.1 N Lvl) [facility] CenterWslhtlxLISWVOYIX9565-85-94 22:17:00 Test Item Value Reference Range Interpretation Comments Chloride Lvl (test code = Chloride Lvl) 105 95-109 N [facility] CenterJthnyjtWCHSNTVJB7579-78-79 22:17:00 Test Item Value Reference Range Interpretation Comments Calcium Lvl (test code = Calcium Lvl) 7.9 8.5-10.5 L [facility] CenterJzndteyCVWDRTANA4049-20-08 22:17:00 Test Item Value Reference Range Interpretation Comments AGAP (test code = AGAP) 18.5 10.0-20.0 N [facility] CenterIjnjoubETQBEZGDJ4611-62-66 22:17:00 Test Item Value Reference Range Interpretation Comments CO2 (test code = CO2) 21 24-32 L [facility] CenterWvpmylxAMVYJSVNS2648-73-64 22:17:00 Test Item Value Reference Range Interpretation Comments Glucose Lvl (test code = Glucose Lvl) 77 70-99 N [facility] CenterBkwouhwYTEKJNWVL5376-44-80 22:17:00 Test Item Value Reference Range Interpretation Comments BUN (test code = BUN) 24 7-22 H [facility] CenterSknpmxqJEGFXHSPF6374-50-87 22:17:00 Test Item Value Reference Range Interpretation Comments Creatinine Lvl (test code = Creatinine 1.8 0.5-1.4 H Lvl) [facility] CenterVqybrlbKZAXFKXZK2738-41-12 22:17:00 Test Item Value Reference Range Interpretation Comments Sodium Lvl (test code = Sodium Lvl) 140 135-145 N [facility] CenterWglkwgiCYUJRPZHO8393-45-93 22:17:00 Test Item Value Reference Range Interpretation Comments Potassium Lvl (test code = Potassium 4.5 3.5-5.1 N Lvl) [facility] CenterOwvermzZJNMVQDZP0731-56-36 22:17:00 Test Item Value Reference Range Interpretation Comments Chloride Lvl (test code = Chloride Lvl) 105 95-109 N [facility] CenterNugshbnVMLGZOSYI0099-46-12 22:17:00 Test Item Value Reference Range Interpretation Comments Calcium Lvl (test code = Calcium Lvl) 7.9 8.5-10.5 L [facility] CenterUzpntkfZLRXKFBUJ8250-58-49 22:17:00 Test Item Value Reference Range Interpretation Comments AGAP (test code = AGAP) 18.5 10.0-20.0 N [facility] CenterQypqyatRMCYVDJCH7055-53-94 22:17:00 Test Item Value Reference Range Interpretation Comments CO2 (test code = CO2) 24-32 L [facility] CenterJfvgzwkFMLETQVFW6741-27-58 22:17:00 Test Item Value Reference Range Interpretation Comments Glucose Lvl (test code = Glucose Lvl) 77 70-99 N [facility] CenterAcmdpdsUDUJXOEZC1685-70-17 22:17:00 Test Item Value Reference Range Interpretation Comments BUN (test code = BUN) 24 7-22 H [facility] CenterChheoxoZRDLKIDBA7871-97-24 22:17:00 Test Item Value Reference Range Interpretation Comments Creatinine Lvl (test code = Creatinine 1.8 0.5-1.4 H Lvl) [facility] CenterZbawwneVYVIHEMQH6721-49-33 22:17:00 Test Item Value Reference Range Interpretation Comments Sodium Lvl (test code = Sodium Lvl) 140 135-145 N [facility] CenterUzlqnixVVAVWUUWT2168-59-32 22:17:00 Test Item Value Reference Range Interpretation Comments Potassium Lvl (test code = Potassium 4.5 3.5-5.1 N Lvl) [facility] CenterIarwzqeLZIWNXXDN9345-05-38 22:17:00 Test Item Value Reference Range Interpretation Comments Chloride Lvl (test code = Chloride Lvl) 105 95-109 N [facility] CenterFjsthmjIUGNOUZYI6426-21-69 22:17:00 Test Item Value Reference Range Interpretation Comments Calcium Lvl (test code = Calcium Lvl) 7.9 8.5-10.5 L [facility] CenterMiadwjcGJHEKFIXB8787-28-55 22:17:00 Test Item Value Reference Range Interpretation Comments AGAP (test code = AGAP) 18.5 10.0-20.0 N [facility] CenterTdxcstmACTLANYYB9853-54-41 22:17:00 Test Item Value Reference Range Interpretation Comments CO2 (test code = CO2) 21 24-32 L [facility] CenterCbyybqwMSMAOEQNT3655-03-76 22:17:00 Test Item Value Reference Range Interpretation Comments Glucose Lvl (test code = Glucose Lvl) 77 70-99 N [facility] CenterMprupwrFNRTEDKZW8911-72-95 22:17:00 Test Item Value Reference Range Interpretation Comments BUN (test code = BUN) 24 7-22 H [facility] CenterOiuavnjUBVGFSASR6025-99-95 22:17:00 Test Item Value Reference Range Interpretation Comments Creatinine Lvl (test code = Creatinine 1.8 0.5-1.4 H Lvl) [facility] CenterRmkspkdFQEFOWEDY6367-05-11 22:17:00 Test Item Value Reference Range Interpretation Comments Sodium Lvl (test code = Sodium Lvl) 140 135-145 N [facility] CenterTrljzrwBLIDMJTUK5550-54-14 22:17:00 Test Item Value Reference Range Interpretation Comments Potassium Lvl (test code = Potassium 4.5 3.5-5.1 N Lvl) [facility] CenterZfydegfVPEKFALJK2984-38-40 22:17:00 Test Item Value Reference Range Interpretation Comments Chloride Lvl (test code = Chloride Lvl) 105 95-109 N [facility] CenterKojblgpPOYPORISL3724-81-31 19:20:00 Test Item Value Reference Range Interpretation Comments Creatinine Lvl (test code = Creatinine 1.8 0.5-1.4 H Lvl) [facility] CenterPyjvwdaSHCCNQADE6088-89-43 19:20:00 Test Item Value Reference Range Interpretation Comments Potassium Lvl (test code = Potassium 4.0 3.5-5.1 N Lvl) [facility] CenterMpzyzikDGKZFJMJB9536-79-23 19:20:00 Test Item Value Reference Range Interpretation Comments Sodium Lvl (test code = Sodium Lvl) 137 135-145 N [facility] CenterFvkrijsVTMSHJKDP5002-96-80 19:20:00 Test Item Value Reference Range Interpretation Comments BUN (test code = BUN) 25 7-22 H [facility] CenterKzgdtviYXKRXYDBQ6972-15-38 19:20:00 Test Item Value Reference Range Interpretation Comments Calcium Lvl (test code = Calcium Lvl) 8.7 8.5-10.5 N [facility] CenterPjxrmojQCCWRCFTL1105-85-07 19:20:00 Test Item Value Reference Range Interpretation Comments CO2 (test code = CO2) 21 24-32 L [facility] CenterStgezdfYDHOFSQVV3798-87-50 19:20:00 Test Item Value Reference Range Interpretation Comments Chloride Lvl (test code = Chloride Lvl) 104 95-109 N [facility] CenterFypxuikRJZSLGLLW3278-50-50 19:20:00 Test Item Value Reference Range Interpretation Comments AGAP (test code = AGAP) 16.0 10.0-20.0 N [facility] CenterAfimcmbNVRYRVJAU1127-75-96 19:20:00 Test Item Value Reference Range Interpretation Comments Glucose Lvl (test code = Glucose Lvl) 86 70-99 N [facility] CenterAighnavXAGKGIVRW8703-81-94 19:20:00 Test Item Value Reference Range Interpretation Comments Creatinine Lvl (test code = Creatinine 1.8 0.5-1.4 H Lvl) [facility] CenterJztbtjpDOSXQDXHV9922-48-27 19:20:00 Test Item Value Reference Range Interpretation Comments Potassium Lvl (test code = Potassium 4.0 3.5-5.1 N Lvl) [facility] CenterVvozzdiBAVCOQSFH5038-17-53 19:20:00 Test Item Value Reference Range Interpretation Comments Sodium Lvl (test code = Sodium Lvl) 137 135-145 N [facility] CenterVugbchmVVHOTKQCZ4977-26-42 19:20:00 Test Item Value Reference Range Interpretation Comments BUN (test code = BUN) 25 7-22 H [facility] CenterFzjsqgoIGAWFDVYH1397-54-73 19:20:00 Test Item Value Reference Range Interpretation Comments Calcium Lvl (test code = Calcium Lvl) 8.7 8.5-10.5 N [facility] CenterUsxqhtmFKSPMPQYF5042-43-33 19:20:00 Test Item Value Reference Range Interpretation Comments CO2 (test code = CO2) 21 24-32 L [facility] CenterIcrgwwqHGJFYIXAA7948-89-44 19:20:00 Test Item Value Reference Range Interpretation Comments Chloride Lvl (test code = Chloride Lvl) 104 95-109 N [facility] CenterDsyhturIZSMQXGAO8699-07-12 19:20:00 Test Item Value Reference Range Interpretation Comments AGAP (test code = AGAP) 16.0 10.0-20.0 N [facility] CenterOwyuamtOVCKWYMNO0777-40-84 19:20:00 Test Item Value Reference Range Interpretation Comments Glucose Lvl (test code = Glucose Lvl) 86 70-99 N [facility] CenterWlloqvnMLNWZZWCN2698-09-40 19:20:00 Test Item Value Reference Range Interpretation Comments Creatinine Lvl (test code = Creatinine 1.8 0.5-1.4 H Lvl) [facility] CenterUtrmyqfUVFLESRNT7866-15-47 19:20:00 Test Item Value Reference Range Interpretation Comments Potassium Lvl (test code = Potassium 4.0 3.5-5.1 N Lvl) [facility] CenterEvvjccbMYIIOMGYP5887-98-76 19:20:00 Test Item Value Reference Range Interpretation Comments Sodium Lvl (test code = Sodium Lvl) 137 135-145 N [facility] CenterImnbavuKEZJSKGLW1758-27-13 19:20:00 Test Item Value Reference Range Interpretation Comments BUN (test code = BUN) 25 7-22 H [facility] CenterKtfwcybLRBVSBHVC5745-65-17 19:20:00 Test Item Value Reference Range Interpretation Comments Calcium Lvl (test code = Calcium Lvl) 8.7 8.5-10.5 N [facility] CenterNpjiocvMCLURXUMO9651-09-56 19:20:00 Test Item Value Reference Range Interpretation Comments CO2 (test code = CO2) 21 24-32 L [facility] CenterEifesriWXJQMOGNK7910-47-84 19:20:00 Test Item Value Reference Range Interpretation Comments Chloride Lvl (test code = Chloride Lvl) 104 95-109 N [facility] CenterXihgmvhRFXESLQUA9910-78-94 19:20:00 Test Item Value Reference Range Interpretation Comments AGAP (test code = AGAP) 16.0 10.0-20.0 N [facility] CenterFnryotjCEJOYGOPP1906-90-43 19:20:00 Test Item Value Reference Range Interpretation Comments Glucose Lvl (test code = Glucose Lvl) 86 70-99 N [facility] CenterZcnxmvvVDQFBWYIM7271-99-51 19:20:00 Test Item Value Reference Range Interpretation Comments Creatinine Lvl (test code = Creatinine 1.8 0.5-1.4 H Lvl) [facility] CenterPxsqolaKMQRMGQHE2585-07-54 19:20:00 Test Item Value Reference Range Interpretation Comments Potassium Lvl (test code = Potassium 4.0 3.5-5.1 N Lvl) [facility] CenterFnntaowOFJCDJIBI8130-02-55 19:20:00 Test Item Value Reference Range Interpretation Comments Sodium Lvl (test code = Sodium Lvl) 137 135-145 N [facility] CenterHhymnnnXVYITVATH3290-54-30 19:20:00 Test Item Value Reference Range Interpretation Comments BUN (test code = BUN) 25 7-22 H [facility] CenterKbswsxmOBTOXWAMS8757-40-17 19:20:00 Test Item Value Reference Range Interpretation Comments Calcium Lvl (test code = Calcium Lvl) 8.7 8.5-10.5 N [facility] CenterDsktkvxESKBWEBNM8274-92-14 19:20:00 Test Item Value Reference Range Interpretation Comments CO2 (test code = CO2) 21 24-32 L [facility] CenterXovhadqAANYENOOQ2807-28-61 19:20:00 Test Item Value Reference Range Interpretation Comments Chloride Lvl (test code = Chloride Lvl) 104 95-109 N [facility] CenterGbtdqcaLNFAFVHIJ4322-71-28 19:20:00 Test Item Value Reference Range Interpretation Comments AGAP (test code = AGAP) 16.0 10.0-20.0 N [facility] CenterAzvtjhgGLFHDQCBO5247-38-76 19:20:00 Test Item Value Reference Range Interpretation Comments Glucose Lvl (test code = Glucose Lvl) 86 70-99 N [facility] CenterAsxjqziNHMBMBKVV5259-61-75 19:20:00 Test Item Value Reference Range Interpretation Comments Creatinine Lvl (test code = Creatinine 1.8 0.5-1.4 H Lvl) [facility] CenterCyptexgTDVNEVGUU0653-62-63 19:20:00 Test Item Value Reference Range Interpretation Comments Potassium Lvl (test code = Potassium 4.0 3.5-5.1 N Lvl) [facility] CenterSykckylXIDTCGXAA8317-96-02 19:20:00 Test Item Value Reference Range Interpretation Comments Sodium Lvl (test code = Sodium Lvl) 137 135-145 N [facility] CenterEmbejpiYHJYBNNFP2279-34-32 19:20:00 Test Item Value Reference Range Interpretation Comments BUN (test code = BUN) 25 7-22 H [facility] CenterZzkariyNAUMPZTJC3537-00-25 19:20:00 Test Item Value Reference Range Interpretation Comments Calcium Lvl (test code = Calcium Lvl) 8.7 8.5-10.5 N [facility] CenterEhqbguhKHLFWPFRS1312-88-44 19:20:00 Test Item Value Reference Range Interpretation Comments CO2 (test code = CO2) 21 24-32 L [facility] CenterVerqtcaSPPIWPSCS0288-47-28 19:20:00 Test Item Value Reference Range Interpretation Comments Chloride Lvl (test code = Chloride Lvl) 104 95-109 N [facility] CenterPvyfyjjDMYXWIXHA7790-84-03 19:20:00 Test Item Value Reference Range Interpretation Comments AGAP (test code = AGAP) 16.0 10.0-20.0 N [facility] CenterAnvydbxNUISJNAYB6494-79-00 19:20:00 Test Item Value Reference Range Interpretation Comments Glucose Lvl (test code = Glucose Lvl) 86 70-99 N [facility] CenterPuoxyfzUEWXJUUAX9469-57-68 19:20:00 Test Item Value Reference Range Interpretation Comments Creatinine Lvl (test code = Creatinine 1.8 0.5-1.4 H Lvl) [facility] CenterXomjanxSTPETYMWB1742-64-39 19:20:00 Test Item Value Reference Range Interpretation Comments Potassium Lvl (test code = Potassium 4.0 3.5-5.1 N Lvl) [facility] CenterGsrahgbEKMSZZYCU8317-41-03 19:20:00 Test Item Value Reference Range Interpretation Comments Sodium Lvl (test code = Sodium Lvl) 137 135-145 N [facility] CenterXduoeanQCDXBIKFP8853-92-93 19:20:00 Test Item Value Reference Range Interpretation Comments BUN (test code = BUN) 25 7-22 H [facility] CenterHfgvehtYFYZDIDSF7678-93-07 19:20:00 Test Item Value Reference Range Interpretation Comments Calcium Lvl (test code = Calcium Lvl) 8.7 8.5-10.5 N [facility] CenterDhymqfhYAWTJVIND6786-70-61 19:20:00 Test Item Value Reference Range Interpretation Comments CO2 (test code = CO2) 21 24-32 L [facility] CenterVrpopupAPMTLTRBB3748-95-95 19:20:00 Test Item Value Reference Range Interpretation Comments Chloride Lvl (test code = Chloride Lvl) 104 95-109 N [facility] CenterGpreasbHGIOPMTST6781-47-92 19:20:00 Test Item Value Reference Range Interpretation Comments AGAP (test code = AGAP) 16.0 10.0-20.0 N [facility] CenterHfuftswGZGHRMWAK8910-54-50 19:20:00 Test Item Value Reference Range Interpretation Comments Glucose Lvl (test code = Glucose Lvl) 86 70-99 N [facility] CenterAdcrvwqQVWPEOSTC4823-37-36 18:40:00 Test Item Value Reference Range Interpretation Comments Uric Acid (test code = Uric Acid) 8.3 3.8-8.0 H [facility] CenterHcgzbtgNNTAFNPYZ9460-24-55 18:40:00 Test Item Value Reference Range Interpretation Comments B/C Ratio (test code = B/C Ratio) 14 6-25 N [facility] CenterGwrziqcHPDNAYADG7444-89-95 18:40:00 Test Item Value Reference Range Interpretation Comments Globulin (test code = Globulin) 5.3 2.0-4.0 H [facility] CenterKqrrdesFYJHCPHNN8895-12-11 18:40:00 Test Item Value Reference Range Interpretation Comments A/G Ratio (test code = A/G Ratio) 0.6 0.7-1.6 L [facility] CenterPqkqrdwPLPOGYEZN5248-29-42 18:40:00 Test Item Value Reference Range Interpretation Comments AST (test code = AST) 18 See_Comment N [Auto mated message] The system which ge nerated this result transmit cruz reference range : <=37. The reference range was not used to interpr et this result as gee l/abnormal. [facility] CenterIenxcbdXZGIGLBGQ9073-97-36 18:40:00 Test Item Value Reference Range Interpretation Comments Bili Total (test code = Bili Total) 0.6 0.2-1.3 N [facility] CenterYgkjkxbOZXDRIWLI3292-55-04 18:40:00 Test Item Value Reference Range Interpretation Comments ALT (test code = ALT) 34 See_Comment N [Auto mated message] The system which ge nerated this result transmit cruz reference range : <=65. The reference range was not used to interpr et this result as gee l/abnormal. [facility] CenterJgzygupUVUDCJSDA3076-04-72 18:40:00 Test Item Value Reference Range Interpretation Comments Alk Phos (test code = Alk Phos) 97 39-136 N [facility] CenterWqkurrkUTLJHRCSU3141-59-60 18:40:00 Test Item Value Reference Range Interpretation Comments Total Protein (test code = Total 8.6 6.4-8.4 H Protein) [facility] CenterUjitqwqFODSAZPZH1106-04-63 18:40:00 Test Item Value Reference Range Interpretation Comments Albumin Lvl (test code = Albumin Lvl) 3.3 3.5-5.0 [facility]KazryhpWBERWBMCZN6415-68-43 18:40:00 Test Item Value Reference Range Interpretation Comments MCV (test code = MCV) 95.9 80.0-94.0 H [facility]UmszueaLHVYJRSMHC7875-97-89 18:40:00 Test Item Value Reference Range Interpretation Comments Hgb (test code = Hgb) 16.3 14.0-18.0 N [facility]VrsckzeQLQLEZPULV3223-02-13 18:40:00 Test Item Value Reference Range Interpretation Comments Hct (test code = Hct) 48.3 42.0-54.0 N [facility]SjealzpMBWXEWJAYZ5746-73-49 18:40:00 Test Item Value Reference Range Interpretation Comments RBC (test code = RBC) 5.03 4.70-6.10 N [facility] TexasBrpsolrHOYDLOTRNO1647-68-59 18:40:00 Test Item Value Reference Range Interpretation Comments WBC (test code = WBC) 12.3 3.7-10.4 H [facility]PneqpdhRQNTAIWHNM6547-75-10 18:40:00 Test Item Value Reference Range Interpretation Comments MCH (test code = MCH) 32.5 pg 27.0-31.0 H [facility]QwhbakcPMLODUIKEN5741-53-70 18:40:00 Test Item Value Reference Range Interpretation Comments Platelet (test code = Platelet) 160 133-450 N [facility] TexasUxlocgwKQGABCVLCQ1208-82-50 18:40:00 Test Item Value Reference Range Interpretation Comments RDW (test code = RDW) 12.9 11.5-14.5 N [facility]PxckkrlFNMEWXROCQ0696-81-22 18:40:00 Test Item Value Reference Range Interpretation Comments MPV (test code = MPV) 9.4 7.4-10.4 N [facility]YsjiukwKPHEHJTYLK2714-17-51 18:40:00 Test Item Value Reference Range Interpretation Comments MCHC (test code = MCHC) 33.8 32.0-36.0 N [facility]PvoimvfVPVXKOIGVV4948-49-67 18:40:00 Test Item Value Reference Range Interpretation Comments Monocytes # (test code 0.6 See_Comment N [Aut omated message] The = Monocytes #) system which generated this result tra nsmitted reference range : <=0.8. The reference r jillian was not used to int erpret this result as normal/abnormal . [facility]VbxczogLIMIEFICSB3201-45-81 18:40:00 Test Item Value Reference Range Interpretation Comments Macrocyte (test code = 1+ *ABN*(01/08/2012 A Macrocyte) 13:40:00) [facility] TexasKlqjyzkEBWOEIFJDT3468-32-23 18:40:00 Test Item Value Reference Range Interpretation Comments Eosinophils # (test code 0.0 See_Comment N [A utomated message] The = Eosinophils #) system whic h generated this result tra nsmitted reference range : <=0.5. The reference r jillian was not used to int erpret this result as normal/abnormal . [facility] TexasMlerjmdCSEOKWFHUA9720-60-83 18:40:00 Test Item Value Reference Range Interpretation Comments Lymphocytes # (test code = Lymphocytes 1.5 1.0-5.5 N #) [facility] TexasGqiqiqqMKSZSIQQAZ4450-96-72 18:40:00 Test Item Value Reference Range Interpretation Comments Segs-Bands # (test code = Segs-Bands #) 10.1 1.5-8.1 H [facility] TexasEmradvbKYXDGIOTYZ0820-41-95 18:40:00 Test Item Value Reference Range Interpretation Comments Eosinophils (test code = 0.2 See_Comment N [A utomated message] The Eosinophils) system which ge nerated this result tra nsmitted reference range : <=4.0. The reference r jillian was not used to int erpret this result as normal/abnormal . [facility] TexasHssbnelCOIAKXPHOZ9128-87-65 18:40:00 Test Item Value Reference Range Interpretation Comments Basophils (test code = 0.3 See_Comment N [Aut omated message] The Basophils) system which ge nerated this result tra nsmitted reference range : <=1.0. The reference r jillian was not used to int erpret this result as normal/abnormal . [facility] TexasCibfkrkUMZHQSBDOP2846-92-36 18:40:00 Test Item Value Reference Range Interpretation Comments Segs (test code = Segs) 82.4 45.0-75.0 H [facility] TexasPuencgdJRLYJRUYSL8926-46-76 18:40:00 Test Item Value Reference Range Interpretation Comments Monocytes (test code = Monocytes) 4.6 2.0-12.0 N [facility]XgthinwPACZVRUPPT9127-89-30 18:40:00 Test Item Value Reference Range Interpretation Comments Lymphocytes (test code = Lymphocytes) 12.5 20.0-40.0 L [facility] TexasNkpcbijOKHNUJDZRV8885-16-61 18:40:00 Test Item Value Reference Range Interpretation Comments Plt Morph (test code = Normal (01/08/2012 N Plt Morph) 13:40:00) [facility]KxewmepQBPPKBJXPP7784-99-31 18:40:00 Test Item Value Reference Range Interpretation Comments RBC Morph (test code = Normal (01/08/2012 N RBC Morph) 13:40:00) [facility]AwukglhOVWLDZQSYH7515-77-43 18:40:00 Test Item Value Reference Range Interpretation Comments CRP, High Sensitivity (test code = CRP, 79.6 High Sensitivity) [facility] CenterJrisjobEHCJJIUBI5273-54-75 18:40:00 Test Item Value Reference Range Interpretation Comments Uric Acid (test code = Uric Acid) 8.3 3.8-8.0 H [facility] CenterWinszytIYVJIZISM3874-07-43 18:40:00 Test Item Value Reference Range Interpretation Comments B/C Ratio (test code = B/C Ratio) 14 6-25 N [facility] CenterKujtleiPJPWLPLEO5954-85-42 18:40:00 Test Item Value Reference Range Interpretation Comments Globulin (test code = Globulin) 5.3 2.0-4.0 H [facility] CenterOyjkmywGEWEFNQDA8236-65-21 18:40:00 Test Item Value Reference Range Interpretation Comments A/G Ratio (test code = A/G Ratio) 0.6 0.7-1.6 L [facility] CenterHlyracnSXHMDZJBK6245-57-50 18:40:00 Test Item Value Reference Range Interpretation Comments AST (test code = AST) 18 See_Comment N [Auto mated message] The system which ge nerated this result transmit cruz reference range : <=37. The reference range was not used to interpr et this result as gee l/abnormal. [facility] CenterFelkkllPUULCUZFO8462-47-71 18:40:00 Test Item Value Reference Range Interpretation Comments Bili Total (test code = Bili Total) 0.6 0.2-1.3 N [facility] CenterUpuxmemQZNBPUMOW8335-07-38 18:40:00 Test Item Value Reference Range Interpretation Comments ALT (test code = ALT) 34 See_Comment N [Auto mated message] The system which ge nerated this result transmit cruz reference range : <=65. The reference range was not used to interpr et this result as gee l/abnormal. [facility] CenterAlxdibyZUYKRDMCE1707-53-53 18:40:00 Test Item Value Reference Range Interpretation Comments Alk Phos (test code = Alk Phos) 97 39-136 N [facility] CenterJhkwbopNHNZYJSIT1355-46-18 18:40:00 Test Item Value Reference Range Interpretation Comments Total Protein (test code = Total 8.6 6.4-8.4 H Protein) [facility] CenterOcdlzehLKJDZBKEI8504-42-34 18:40:00 Test Item Value Reference Range Interpretation Comments Albumin Lvl (test code = Albumin Lvl) 3.3 3.5-5.0 L [facility]SrhstdpOUPOGWZQWI4766-31-64 18:40:00 Test Item Value Reference Range Interpretation Comments MCV (test code = MCV) 95.9 80.0-94.0 H [facility] TexasCnxamxnQFJSAZCUXI5529-67-45 18:40:00 Test Item Value Reference Range Interpretation Comments Hgb (test code = Hgb) 16.3 14.0-18.0 N [facility] TexasUuixeosQISNPVPNTJ4893-29-12 18:40:00 Test Item Value Reference Range Interpretation Comments Hct (test code = Hct) 48.3 42.0-54.0 N [facility] TexasLjjinntNLPXTAPGTD3390-79-97 18:40:00 Test Item Value Reference Range Interpretation Comments RBC (test code = RBC) 5.03 4.70-6.10 N [facility] TexasTwuschsBCYFUUZBVF6039-28-85 18:40:00 Test Item Value Reference Range Interpretation Comments WBC (test code = WBC) 12.3 3.7-10.4 H [facility] TexasWomtiotAURIXERNYL4323-65-60 18:40:00 Test Item Value Reference Range Interpretation Comments MCH (test code = MCH) 32.5 pg 27.0-31.0 H [facility]WqlykfdMXVTGOTPXO8466-18-81 18:40:00 Test Item Value Reference Range Interpretation Comments Platelet (test code = Platelet) 160 133-450 N [facility] TexasJuqfgetUJACMZDAWU1200-54-11 18:40:00 Test Item Value Reference Range Interpretation Comments RDW (test code = RDW) 12.9 11.5-14.5 N [facility] TexasSfamajiZNCEEXFMFZ4890-92-98 18:40:00 Test Item Value Reference Range Interpretation Comments MPV (test code = MPV) 9.4 7.4-10.4 N [facility]CepugrtVMBHXLLKQQ5302-26-62 18:40:00 Test Item Value Reference Range Interpretation Comments MCHC (test code = MCHC) 33.8 32.0-36.0 N [facility] TexasJuyfbpbRBAWDRMNNX7058-30-86 18:40:00 Test Item Value Reference Range Interpretation Comments Monocytes # (test code 0.6 See_Comment N [Aut omated message] The = Monocytes #) system which generated this result tra nsmitted reference range : <=0.8. The reference r jillian was not used to int erpret this result as normal/abnormal . [facility]VfouxalCXVIQUDUWU5452-15-93 18:40:00 Test Item Value Reference Range Interpretation Comments Macrocyte (test code = 1+ *ABN*(01/08/2012 A Macrocyte) 13:40:00) [facility]OubbflzQGQGVQBFDV1877-19-85 18:40:00 Test Item Value Reference Range Interpretation Comments Eosinophils # (test code 0.0 See_Comment N [A utomated message] The = Eosinophils #) system whic h generated this result tra nsmitted reference range : <=0.5. The reference r jillian was not used to int erpret this result as normal/abnormal . [facility]NnnxdsxXANJNQYGKS7142-39-19 18:40:00 Test Item Value Reference Range Interpretation Comments Lymphocytes # (test code = Lymphocytes 1.5 1.0-5.5 N #) [facility]TwximajHALRQKXRDU8769-11-59 18:40:00 Test Item Value Reference Range Interpretation Comments Segs-Bands # (test code = Segs-Bands #) 10.1 1.5-8.1 H [facility]UbxffqdBATSOIADUM1499-79-21 18:40:00 Test Item Value Reference Range Interpretation Comments Eosinophils (test code = 0.2 See_Comment N [A utomated message] The Eosinophils) system which ge nerated this result tra nsmitted reference range : <=4.0. The reference r jillian was not used to int erpret this result as normal/abnormal . [facility]JslxyscCNNHMDKYRC4874-93-28 18:40:00 Test Item Value Reference Range Interpretation Comments Basophils (test code = 0.3 See_Comment N [Aut omated message] The Basophils) system which ge nerated this result tra nsmitted reference range : <=1.0. The reference r jillian was not used to int erpret this result as normal/abnormal . [facility] TexasZhnpmpfHUQTRBVPJS6742-88-95 18:40:00 Test Item Value Reference Range Interpretation Comments Segs (test code = Segs) 82.4 45.0-75.0 H [facility] TexasLdvqbifUFTFPRVRIN6829-21-78 18:40:00 Test Item Value Reference Range Interpretation Comments Monocytes (test code = Monocytes) 4.6 2.0-12.0 N [facility]HntfbooYARJMFKPZT9705-66-50 18:40:00 Test Item Value Reference Range Interpretation Comments Lymphocytes (test code = Lymphocytes) 12.5 20.0-40.0 L [facility]VvogcjxXHLSQNBLWF8423-50-54 18:40:00 Test Item Value Reference Range Interpretation Comments Plt Morph (test code = Normal (01/08/2012 N Plt Morph) 13:40:00) [facility]SbhngyxTUAPGXHNIM0864-46-58 18:40:00 Test Item Value Reference Range Interpretation Comments RBC Morph (test code = Normal (01/08/2012 N RBC Morph) 13:40:00) [facility] CenterVuhohanYQNVWLOXGG6972-87-18 18:40:00 Test Item Value Reference Range Interpretation Comments CRP, High Sensitivity (test code = CRP, 79.6 High Sensitivity) [facility] CenterDlppqsoXYDKVIZGJ4066-86-12 18:40:00 Test Item Value Reference Range Interpretation Comments Uric Acid (test code = Uric Acid) 8.3 3.8-8.0 H [facility] CenterZlmjxscSFPJPULAQ7609-39-04 18:40:00 Test Item Value Reference Range Interpretation Comments B/C Ratio (test code = B/C Ratio) 14 6-25 N [facility] CenterRndznguHROAZBZIG8753-51-99 18:40:00 Test Item Value Reference Range Interpretation Comments Globulin (test code = Globulin) 5.3 2.0-4.0 H [facility] CenterLqmvjenMYOHPDFZS8353-89-58 18:40:00 Test Item Value Reference Range Interpretation Comments A/G Ratio (test code = A/G Ratio) 0.6 0.7-1.6 L [facility] CenterGrwvspwUESRWPTOP7306-89-52 18:40:00 Test Item Value Reference Range Interpretation Comments AST (test code = AST) 18 See_Comment N [Auto mated message] The system which ge nerated this result transmit cruz reference range : <=37. The reference range was not used to interpr et this result as gee l/abnormal. [facility] CenterFitbaavYRFOJSXVI4497-38-73 18:40:00 Test Item Value Reference Range Interpretation Comments Bili Total (test code = Bili Total) 0.6 0.2-1.3 N [facility] CenterQlhhkmmHONYQBJCY1498-59-24 18:40:00 Test Item Value Reference Range Interpretation Comments ALT (test code = ALT) 34 See_Comment N [Auto mated message] The system which ge nerated this result transmit cruz reference range : <=65. The reference range was not used to interpr et this result as gee l/abnormal. [facility] CenterCtcfgssTWSGXJOAL0575-55-43 18:40:00 Test Item Value Reference Range Interpretation Comments Alk Phos (test code = Alk Phos) 97 39-136 N [facility] CenterIimhsaxODNBCAPPZ1841-51-82 18:40:00 Test Item Value Reference Range Interpretation Comments Total Protein (test code = Total 8.6 6.4-8.4 H Protein) [facility] CenterUbypgjiYXENOCXTF2291-62-87 18:40:00 Test Item Value Reference Range Interpretation Comments Albumin Lvl (test code = Albumin Lvl) 3.3 3.5-5.0 L [facility]IrwrcmbQQNSMYGRJD4745-10-86 18:40:00 Test Item Value Reference Range Interpretation Comments MCV (test code = MCV) 95.9 80.0-94.0 H [facility] TexasHjaqfekPUJAHVXWKW5164-72-72 18:40:00 Test Item Value Reference Range Interpretation Comments Hgb (test code = Hgb) 16.3 14.0-18.0 N [facility] TexasDjbfakyXZVXYIPFHJ5792-20-11 18:40:00 Test Item Value Reference Range Interpretation Comments Hct (test code = Hct) 48.3 42.0-54.0 N [facility] TexasGtuicvoXAQEFCBELL0641-79-86 18:40:00 Test Item Value Reference Range Interpretation Comments RBC (test code = RBC) 5.03 4.70-6.10 N [facility]QzzlvmnVCZIVAFGFE0790-84-19 18:40:00 Test Item Value Reference Range Interpretation Comments WBC (test code = WBC) 12.3 3.7-10.4 H [facility]EpcjgydIOVLCPELNN3903-03-26 18:40:00 Test Item Value Reference Range Interpretation Comments MCH (test code = MCH) 32.5 pg 27.0-31.0 H [facility]MkqkocgRWXHZHLUYU3932-24-05 18:40:00 Test Item Value Reference Range Interpretation Comments Platelet (test code = Platelet) 160 133-450 N [facility] TexasNasntpdYMZKDXFQMH0192-25-88 18:40:00 Test Item Value Reference Range Interpretation Comments RDW (test code = RDW) 12.9 11.5-14.5 N [facility] TexasMfxgdsuJGHNVXKJZT0666-63-24 18:40:00 Test Item Value Reference Range Interpretation Comments MPV (test code = MPV) 9.4 7.4-10.4 N [facility] TexasNviwwkhRAGDUOXOEW3852-35-87 18:40:00 Test Item Value Reference Range Interpretation Comments MCHC (test code = MCHC) 33.8 32.0-36.0 N [facility] TexasJgrjsyoTJWWHOLXJI6672-00-60 18:40:00 Test Item Value Reference Range Interpretation Comments Monocytes # (test code 0.6 See_Comment N [Aut omated message] The = Monocytes #) system which generated this result tra nsmitted reference range : <=0.8. The reference r jillian was not used to int erpret this result as normal/abnormal . [facility] TexasAbekwajRACZHSUHGO2919-77-57 18:40:00 Test Item Value Reference Range Interpretation Comments Macrocyte (test code = 1+ *ABN*(01/08/2012 A Macrocyte) 13:40:00) [facility] TexasWavnoelAROXXIETYE6688-14-61 18:40:00 Test Item Value Reference Range Interpretation Comments Eosinophils # (test code 0.0 See_Comment N [A utomated message] The = Eosinophils #) system whic h generated this result tra nsmitted reference range : <=0.5. The reference r jillian was not used to int erpret this result as normal/abnormal . [facility] TexasEjjhsvdAGAHTGXOOM6743-28-32 18:40:00 Test Item Value Reference Range Interpretation Comments Lymphocytes # (test code = Lymphocytes 1.5 1.0-5.5 N #) [facility]YjmtwxcMUVPUWBTJB9286-37-40 18:40:00 Test Item Value Reference Range Interpretation Comments Segs-Bands # (test code = Segs-Bands #) 10.1 1.5-8.1 H [facility] TexasBrnsxfiMVCJZXWVDV9902-94-35 18:40:00 Test Item Value Reference Range Interpretation Comments Eosinophils (test code = 0.2 See_Comment N [A utomated message] The Eosinophils) system which ge nerated this result tra nsmitted reference range : <=4.0. The reference r jillian was not used to int erpret this result as normal/abnormal . [facility] TexasImxwaeaPHVYJSTKPP3098-71-80 18:40:00 Test Item Value Reference Range Interpretation Comments Basophils (test code = 0.3 See_Comment N [Aut omated message] The Basophils) system which ge nerated this result tra nsmitted reference range : <=1.0. The reference r jillian was not used to int erpret this result as normal/abnormal . [facility]KixrhgjLBJNGSNVVN7279-47-53 18:40:00 Test Item Value Reference Range Interpretation Comments Segs (test code = Segs) 82.4 45.0-75.0 H [facility] TexasDrgvnrqESPTDINIYP7291-22-28 18:40:00 Test Item Value Reference Range Interpretation Comments Monocytes (test code = Monocytes) 4.6 2.0-12.0 N [facility] TexasTxmdwsnGZMWNDWKTO6829-60-51 18:40:00 Test Item Value Reference Range Interpretation Comments Lymphocytes (test code = Lymphocytes) 12.5 20.0-40.0 L [facility] TexasDozkehwAQPZKAWCLV8764-15-62 18:40:00 Test Item Value Reference Range Interpretation Comments Plt Morph (test code = Normal (01/08/2012 N Plt Morph) 13:40:00) [facility]JnhkdhgZCBYJFPDKB1369-27-36 18:40:00 Test Item Value Reference Range Interpretation Comments RBC Morph (test code = Normal (01/08/2012 N RBC Morph) 13:40:00) [facility] CenterHfvwcwkUPFXIWBVHA2393-59-88 18:40:00 Test Item Value Reference Range Interpretation Comments CRP, High Sensitivity (test code = CRP, 79.6 High Sensitivity) [facility] CenterRqqerrnFIYTJTJVG7880-65-17 18:40:00 Test Item Value Reference Range Interpretation Comments Uric Acid (test code = Uric Acid) 8.3 3.8-8.0 H [facility] CenterOpwertrWTDVMQUQZ1435-08-24 18:40:00 Test Item Value Reference Range Interpretation Comments B/C Ratio (test code = B/C Ratio) 14 6-25 N [facility] CenterEvdoserOKDMZIINY1657-30-92 18:40:00 Test Item Value Reference Range Interpretation Comments Globulin (test code = Globulin) 5.3 2.0-4.0 H [facility] CenterVqhgaykLWQKYPTGI7879-09-23 18:40:00 Test Item Value Reference Range Interpretation Comments A/G Ratio (test code = A/G Ratio) 0.6 0.7-1.6 L [facility] CenterKfbvdlrDBJLESVBT4107-94-17 18:40:00 Test Item Value Reference Range Interpretation Comments AST (test code = AST) 18 See_Comment N [Auto mated message] The system which ge nerated this result transmit cruz reference range : <=37. The reference range was not used to interpr et this result as gee l/abnormal. [facility] CenterHlezfcaXRZFNSSKV9580-48-09 18:40:00 Test Item Value Reference Range Interpretation Comments Bili Total (test code = Bili Total) 0.6 0.2-1.3 N [facility] CenterPpgfvtsXINKCOCEG0967-19-24 18:40:00 Test Item Value Reference Range Interpretation Comments ALT (test code = ALT) 34 See_Comment N [Auto mated message] The system which ge nerated this result transmit cruz reference range : <=65. The reference range was not used to interpr et this result as gee l/abnormal. [facility] CenterStcfjttHPBFCIJKN9731-78-12 18:40:00 Test Item Value Reference Range Interpretation Comments Alk Phos (test code = Alk Phos) 97 39-136 N [facility] CenterEbycdxvSZJQWQHBE6947-93-07 18:40:00 Test Item Value Reference Range Interpretation Comments Total Protein (test code = Total 8.6 6.4-8.4 H Protein) [facility] CenterZimpqtuQNXUNUVOK8914-51-78 18:40:00 Test Item Value Reference Range Interpretation Comments Albumin Lvl (test code = Albumin Lvl) 3.3 3.5-5.0 L [facility]KcofnymCVDNQOSZZS6246-78-02 18:40:00 Test Item Value Reference Range Interpretation Comments MCV (test code = MCV) 95.9 80.0-94.0 H [facility] TexasCufkxkcLYYMGKXUEA9144-59-58 18:40:00 Test Item Value Reference Range Interpretation Comments Hgb (test code = Hgb) 16.3 14.0-18.0 N [facility] TexasSwxwiloALMHCEAZNS4799-04-31 18:40:00 Test Item Value Reference Range Interpretation Comments Hct (test code = Hct) 48.3 42.0-54.0 N [facility] TexasJygjdmpRYAVRCTIUN5867-88-91 18:40:00 Test Item Value Reference Range Interpretation Comments RBC (test code = RBC) 5.03 4.70-6.10 N [facility] TexasHxshcubAYOKVVMNXX3047-67-72 18:40:00 Test Item Value Reference Range Interpretation Comments WBC (test code = WBC) 12.3 3.7-10.4 H [facility] TexasLuprvehCDEOFAADMX6742-30-62 18:40:00 Test Item Value Reference Range Interpretation Comments MCH (test code = MCH) 32.5 pg 27.0-31.0 H [facility]QdjzuebVDBYXFZEIS5164-76-63 18:40:00 Test Item Value Reference Range Interpretation Comments Platelet (test code = Platelet) 160 133-450 N [facility] TexasZdhxsagROJGLTLDRB0347-01-24 18:40:00 Test Item Value Reference Range Interpretation Comments RDW (test code = RDW) 12.9 11.5-14.5 N [facility] TexasVhnzhpdUEUTXHCWFZ3613-08-72 18:40:00 Test Item Value Reference Range Interpretation Comments MPV (test code = MPV) 9.4 7.4-10.4 N [facility] TexasEmztkulRUXRICMQVW2592-95-37 18:40:00 Test Item Value Reference Range Interpretation Comments MCHC (test code = MCHC) 33.8 32.0-36.0 N [facility] TexasLqwtlopCRXQOIBPNP8350-45-83 18:40:00 Test Item Value Reference Range Interpretation Comments Monocytes # (test code 0.6 See_Comment N [Aut omated message] The = Monocytes #) system which generated this result tra nsmitted reference range : <=0.8. The reference r jillian was not used to int erpret this result as normal/abnormal . [facility]XwexuquYTKNMBGELX8694-47-34 18:40:00 Test Item Value Reference Range Interpretation Comments Macrocyte (test code = 1+ *ABN*(01/08/2012 A Macrocyte) 13:40:00) [facility]XbnzfzgOXOTYANZQT0977-34-69 18:40:00 Test Item Value Reference Range Interpretation Comments Eosinophils # (test code 0.0 See_Comment N [A utomated message] The = Eosinophils #) system whic h generated this result tra nsmitted reference range : <=0.5. The reference r jillian was not used to int erpret this result as normal/abnormal . [facility] TexasHyevcduBPNSTKJTHR5220-67-58 18:40:00 Test Item Value Reference Range Interpretation Comments Lymphocytes # (test code = Lymphocytes 1.5 1.0-5.5 N #) [facility] TexasOcumsxsSWXCTORVYH5337-41-73 18:40:00 Test Item Value Reference Range Interpretation Comments Segs-Bands # (test code = Segs-Bands #) 10.1 1.5-8.1 H [facility] TexasMbpjdpqGPIOWOMRAB4583-54-87 18:40:00 Test Item Value Reference Range Interpretation Comments Eosinophils (test code = 0.2 See_Comment N [A utomated message] The Eosinophils) system which ge nerated this result tra nsmitted reference range : <=4.0. The reference r jillian was not used to int erpret this result as normal/abnormal . [facility] TexasHwffebtUIQTHRRQYV1203-09-75 18:40:00 Test Item Value Reference Range Interpretation Comments Basophils (test code = 0.3 See_Comment N [Aut omated message] The Basophils) system which ge nerated this result tra nsmitted reference range : <=1.0. The reference r jillian was not used to int erpret this result as normal/abnormal . [facility] TexasZvcfxpsEFEHOEWGJT3824-24-25 18:40:00 Test Item Value Reference Range Interpretation Comments Segs (test code = Segs) 82.4 45.0-75.0 H [facility] TexasWohmiauGHCERTDRBN1732-87-30 18:40:00 Test Item Value Reference Range Interpretation Comments Monocytes (test code = Monocytes) 4.6 2.0-12.0 N [facility] TexasGriqzrgOJXCHRPRXF7635-50-68 18:40:00 Test Item Value Reference Range Interpretation Comments Lymphocytes (test code = Lymphocytes) 12.5 20.0-40.0 L [facility] TexasVhsgbeeUEYHANMOHF9946-49-65 18:40:00 Test Item Value Reference Range Interpretation Comments Plt Morph (test code = Normal (01/08/2012 N Plt Morph) 13:40:00) [facility]AxoetdbDSCYDJJGHX4581-30-13 18:40:00 Test Item Value Reference Range Interpretation Comments RBC Morph (test code = Normal (01/08/2012 N RBC Morph) 13:40:00) [facility]XveszcfEQIOGOZWAL8707-56-67 18:40:00 Test Item Value Reference Range Interpretation Comments CRP, High Sensitivity (test code = CRP, 79.6 High Sensitivity) [facility] CenterJksgboaVVUOIDCBJ5683-74-58 18:40:00 Test Item Value Reference Range Interpretation Comments Uric Acid (test code = Uric Acid) 8.3 3.8-8.0 H [facility] CenterIlifshkWJXLRATIM2834-73-68 18:40:00 Test Item Value Reference Range Interpretation Comments B/C Ratio (test code = B/C Ratio) 14 6-25 N [facility] CenterPwglyizANUCGPTVH8214-39-13 18:40:00 Test Item Value Reference Range Interpretation Comments Globulin (test code = Globulin) 5.3 2.0-4.0 H [facility] CenterZmhjsfqONYXVROUH4031-65-27 18:40:00 Test Item Value Reference Range Interpretation Comments A/G Ratio (test code = A/G Ratio) 0.6 0.7-1.6 L [facility] CenterQflatzoZBOFMOMOS6897-40-97 18:40:00 Test Item Value Reference Range Interpretation Comments AST (test code = AST) 18 <=37 N [facility] CenterCcsuvygKRQIFJIBD9570-93-44 18:40:00 Test Item Value Reference Range Interpretation Comments Bili Total (test code = Bili Total) 0.6 0.2-1.3 N [facility] CenterMznmfxdHZPBERFGJ5943-34-13 18:40:00 Test Item Value Reference Range Interpretation Comments ALT (test code = ALT) 34 <=65 N [facility] CenterXljibbwYZZXMEDOB1104-67-95 18:40:00 Test Item Value Reference Range Interpretation Comments Alk Phos (test code = Alk Phos) 97 39-136 N [facility] CenterCtjrescNUIIJAGMW6988-88-77 18:40:00 Test Item Value Reference Range Interpretation Comments Total Protein (test code = Total 8.6 6.4-8.4 H Protein) [facility] CenterNrnnmhmVXOVROUVT7192-08-35 18:40:00 Test Item Value Reference Range Interpretation Comments Albumin Lvl (test code = Albumin Lvl) 3.3 3.5-5.0 L [facility]IaqrljgNGTASZQFZC8972-84-26 18:40:00 Test Item Value Reference Range Interpretation Comments MCV (test code = MCV) 95.9 80.0-94.0 H [facility]CtkeelfYKTEUZRITQ8939-21-82 18:40:00 Test Item Value Reference Range Interpretation Comments Hgb (test code = Hgb) 16.3 14.0-18.0 N [facility]ByruvswGNAFSQOCKC2437-05-93 18:40:00 Test Item Value Reference Range Interpretation Comments Hct (test code = Hct) 48.3 42.0-54.0 N [facility]PvuloxhTBRTLBQBCQ6953-51-15 18:40:00 Test Item Value Reference Range Interpretation Comments RBC (test code = RBC) 5.03 4.70-6.10 N [facility] TexasMfiattdSVVTNDNWNI3126-99-35 18:40:00 Test Item Value Reference Range Interpretation Comments WBC (test code = WBC) 12.3 3.7-10.4 H [facility] TexasRibtigyZYBFUZIWUC5098-84-85 18:40:00 Test Item Value Reference Range Interpretation Comments MCH (test code = MCH) 32.5 pg 27.0-31.0 H [facility] TexasJuptcbhOADEMAQGLO5430-61-96 18:40:00 Test Item Value Reference Range Interpretation Comments Platelet (test code = Platelet) 160 133-450 N [facility] TexasOrzhrpbKUCNGTECKE9772-21-19 18:40:00 Test Item Value Reference Range Interpretation Comments RDW (test code = RDW) 12.9 11.5-14.5 N [facility] TexasUeovwomCHJVFSOSMJ5571-76-10 18:40:00 Test Item Value Reference Range Interpretation Comments MPV (test code = MPV) 9.4 7.4-10.4 N [facility]YbngaquSIFXGWVRUI2016-63-11 18:40:00 Test Item Value Reference Range Interpretation Comments MCHC (test code = MCHC) 33.8 32.0-36.0 N [facility] TexasVnuoyzwSRBISQEUSY1903-31-11 18:40:00 Test Item Value Reference Range Interpretation Comments Monocytes # (test code = Monocytes #) 0.6 <=0.8 N [facility]CtcoyuvHDHYWEQDWK4965-66-97 18:40:00 Test Item Value Reference Range Interpretation Comments Macrocyte (test code = 1+ *ABN*(01/08/2012 A Macrocyte) 13:40:00) [facility] TexasWtugshoTNLRVNGVTS9911-00-42 18:40:00 Test Item Value Reference Range Interpretation Comments Eosinophils # (test code = Eosinophils 0.0 <=0.5 N #) [facility] TexasLhgfwhoPYGWKWVGWV6768-49-73 18:40:00 Test Item Value Reference Range Interpretation Comments Lymphocytes # (test code = Lymphocytes 1.5 1.0-5.5 N #) [facility] TexasTmayyegPWQRWEIGKD3233-87-20 18:40:00 Test Item Value Reference Range Interpretation Comments Segs-Bands # (test code = Segs-Bands #) 10.1 1.5-8.1 H [facility]FrfzodkJJJDDVBJGH6826-78-40 18:40:00 Test Item Value Reference Range Interpretation Comments Eosinophils (test code = Eosinophils) 0.2 <=4.0 N [facility] TexasIfhkfqmECTTSGOSAX8946-07-95 18:40:00 Test Item Value Reference Range Interpretation Comments Basophils (test code = Basophils) 0.3 <=1.0 N [facility]XewkpbbJZSLJFMWRC4535-61-38 18:40:00 Test Item Value Reference Range Interpretation Comments Segs (test code = Segs) 82.4 45.0-75.0 H [facility]OohpjjwOYOUURTDUN2039-83-07 18:40:00 Test Item Value Reference Range Interpretation Comments Monocytes (test code = Monocytes) 4.6 2.0-12.0 N [facility] TexasTchzwciZBZRRMCBCA3743-94-87 18:40:00 Test Item Value Reference Range Interpretation Comments Lymphocytes (test code = Lymphocytes) 12.5 20.0-40.0 L [facility] TexasOnggixyZSWBZXTYZH1529-37-50 18:40:00 Test Item Value Reference Range Interpretation Comments Plt Morph (test code = Normal (01/08/2012 N Plt Morph) 13:40:00) [facility] RegionRvvpatfCAAXAXYKGU9406-21-83 18:40:00 Test Item Value Reference Range Interpretation Comments RBC Morph (test code = Normal (01/08/2012 N RBC Morph) 13:40:00) [facility] CenterZfksyghLUTFKBHFZN5367-21-18 18:40:00 Test Item Value Reference Range Interpretation Comments CRP, High Sensitivity (test code = CRP, 79.6 High Sensitivity) [facility] CenterDfcnaldRBBQBNIWN8524-43-81 18:40:00 Test Item Value Reference Range Interpretation Comments Uric Acid (test code = Uric Acid) 8.3 3.8-8.0 H [facility] CenterNurxlneEYHGSXEJE1458-45-02 18:40:00 Test Item Value Reference Range Interpretation Comments B/C Ratio (test code = B/C Ratio) 14 6-25 N [facility] CenterQsmsmxkRZVDNDVKH8861-35-60 18:40:00 Test Item Value Reference Range Interpretation Comments Globulin (test code = Globulin) 5.3 2.0-4.0 H [facility] CenterBqhxiwpGVEFAARBZ0418-99-15 18:40:00 Test Item Value Reference Range Interpretation Comments A/G Ratio (test code = A/G Ratio) 0.6 0.7-1.6 L [facility] CenterMndvaebJIBITAHYS1553-42-65 18:40:00 Test Item Value Reference Range Interpretation Comments AST (test code = AST) 18 <=37 N [place] [address]-04-11 18:40:00 Test Item Value Reference Range Interpretation Comments Bili Total (test code = Bili Total) 0.6 0.2-1.3 N [facility] CenterTkjgvysKNXMXUIRK1005-85-85 18:40:00 Test Item Value Reference Range Interpretation Comments ALT (test code = ALT) 34 <=65 N [facility] CenterZioaxndNLOMRAQOK8422-22-69 18:40:00 Test Item Value Reference Range Interpretation Comments Alk Phos (test code = Alk Phos) 97 39-136 N [facility] CenterUdyyoywEAVRMKKXI5890-59-63 18:40:00 Test Item Value Reference Range Interpretation Comments Total Protein (test code = Total 8.6 6.4-8.4 H Protein) [facility] CenterGmdopxmREXZRPWJD2908-26-44 18:40:00 Test Item Value Reference Range Interpretation Comments Albumin Lvl (test code = Albumin Lvl) 3.3 3.5-5.0 L [facility] TexasDwhgqaiIOWKRTTXUB1395-15-64 18:40:00 Test Item Value Reference Range Interpretation Comments MCV (test code = MCV) 95.9 80.0-94.0 H [facility] TexasHcenwvxOLQWGWDZNC3094-09-68 18:40:00 Test Item Value Reference Range Interpretation Comments Hgb (test code = Hgb) 16.3 14.0-18.0 N [facility] TexasPxobuxiJSJPYHXBMJ9339-42-73 18:40:00 Test Item Value Reference Range Interpretation Comments Hct (test code = Hct) 48.3 42.0-54.0 N [facility] TexasGtqcpxmQQRHUHBWCY0052-37-11 18:40:00 Test Item Value Reference Range Interpretation Comments RBC (test code = RBC) 5.03 4.70-6.10 N [facility] TexasLgezcjaBXSXKMVOWI4957-98-40 18:40:00 Test Item Value Reference Range Interpretation Comments WBC (test code = WBC) 12.3 3.7-10.4 H [facility]CmbdaxiCSDJWNDEPZ8766-69-89 18:40:00 Test Item Value Reference Range Interpretation Comments MCH (test code = MCH) 32.5 pg 27.0-31.0 H [facility] TexasFhhpjdbNGCMMOHWHH1730-30-49 18:40:00 Test Item Value Reference Range Interpretation Comments Platelet (test code = Platelet) 160 133-450 N [facility] TexasLbbhoxbBKVNNRXUBI3246-50-87 18:40:00 Test Item Value Reference Range Interpretation Comments RDW (test code = RDW) 12.9 11.5-14.5 N [facility] TexasJiifvywZXZATOORON8132-72-66 18:40:00 Test Item Value Reference Range Interpretation Comments MPV (test code = MPV) 9.4 7.4-10.4 N [facility]PmfxpfjPIEJWMRCQC2928-36-04 18:40:00 Test Item Value Reference Range Interpretation Comments MCHC (test code = MCHC) 33.8 32.0-36.0 N [facility] TexasJjkskbxBQIAJZUWLJ7470-43-09 18:40:00 Test Item Value Reference Range Interpretation Comments Monocytes # (test code = Monocytes #) 0.6 <=0.8 N [facility]PuegjeyXCILIMKUIH3272-66-36 18:40:00 Test Item Value Reference Range Interpretation Comments Macrocyte (test code = 1+ *ABN*(01/08/2012 A Macrocyte) 13:40:00) [facility]IcwklkgNVPQUSIJWW3665-43-96 18:40:00 Test Item Value Reference Range Interpretation Comments Eosinophils # (test code = Eosinophils 0.0 <=0.5 N #) [facility]LdjkkqjIEMBABIOZY3900-64-44 18:40:00 Test Item Value Reference Range Interpretation Comments Lymphocytes # (test code = Lymphocytes 1.5 1.0-5.5 N #) [facility]EgdyrkwMZWXMOONHH5233-90-14 18:40:00 Test Item Value Reference Range Interpretation Comments Segs-Bands # (test code = Segs-Bands #) 10.1 1.5-8.1 H [facility] TexasHsiislhULGCDYYDLH2211-57-45 18:40:00 Test Item Value Reference Range Interpretation Comments Eosinophils (test code = Eosinophils) 0.2 <=4.0 N [facility] TexasWwkbgqnXHQBKWJMGQ1575-75-96 18:40:00 Test Item Value Reference Range Interpretation Comments Basophils (test code = Basophils) 0.3 <=1.0 N [facility] TexasZettyyfWUPXZQMSCX7069-04-71 18:40:00 Test Item Value Reference Range Interpretation Comments Segs (test code = Segs) 82.4 45.0-75.0 H [facility] TexasNavcthsZNCDMLUAWW4415-99-21 18:40:00 Test Item Value Reference Range Interpretation Comments Monocytes (test code = Monocytes) 4.6 2.0-12.0 N [facility]CdakaqlFYETIZHBJC7781-93-18 18:40:00 Test Item Value Reference Range Interpretation Comments Lymphocytes (test code = Lymphocytes) 12.5 20.0-40.0 L [facility] TexasQwaarviSHTYBEOQQG1334-62-94 18:40:00 Test Item Value Reference Range Interpretation Comments Plt Morph (test code = Normal (01/08/2012 N Plt Morph) 13:40:00) [facility]YzujqlqNGFCONFVLO6994-68-12 18:40:00 Test Item Value Reference Range Interpretation Comments RBC Morph (test code = Normal (01/08/2012 N RBC Morph) 13:40:00) [facility] CenterIzkkqcpKCCFVOJBND3597-54-80 18:40:00 Test Item Value Reference Range Interpretation Comments CRP, High Sensitivity (test code = CRP, 79.6 High Sensitivity) [facility] CenterLzkccuvIygkmlknhbdu1199-64-82 18:32:00 Test Item Value Reference Range Interpretation Comments Culture: Blood (test code = Culture: Blood) [facility] CenterScubaarTghtrdbodpcm3493-96-50 18:32:00 Test Item Value Reference Range Interpretation Comments Culture: Blood (test code = Culture: Blood) [facility] CenterLvavxbjIhdpjobvoilz5128-99-88 18:32:00 Test Item Value Reference Range Interpretation Comments Culture: Blood (test code = Culture: Blood) [facility] CenterMixjxyxEmtdctdknbmb3513-58-44 18:32:00 Test Item Value Reference Range Interpretation Comments Culture: Blood (test code = Culture: Blood) [facility] CenterAosvbraZnrtfiyacgoj8978-02-72 18:32:00 Test Item Value Reference Range Interpretation Comments Culture: Blood (test code = Culture: Blood) [facility] CenterPeodotqDexoquzaspee0597-39-41 18:32:00 Test Item Value Reference Range Interpretation Comments Culture: Blood (test code = Culture: Blood) [facility] CenterUkcdndcQmhfzbdsujky0605-23-79 18:25:00 Test Item Value Reference Range Interpretation Comments Culture: Blood (test code = Culture: Blood) [facility] CenterQxoacknMkiguhaftiai7989-46-27 18:25:00 Test Item Value Reference Range Interpretation Comments Culture: Blood (test code = Culture: Blood) [facility] CenterKfwnulmToihrgxucuxa5461-01-03 18:25:00 Test Item Value Reference Range Interpretation Comments Culture: Blood (test code = Culture: Blood) [facility] CenterEucsuhrWmuclwtdblup7326-86-96 18:25:00 Test Item Value Reference Range Interpretation Comments Culture: Blood (test code = Culture: Blood) [facility] CenterDsibhpuStvjjhpexwio8379-45-90 18:25:00 Test Item Value Reference Range Interpretation Comments Culture: Blood (test code = Culture: Blood) [facility] CenterEogextdUvnvwylkngdt8874-83-49 18:25:00 Test Item Value Reference Range Interpretation Comments Culture: Blood (test code = Culture: Blood) [facility]LwxrjbcWASTTORXPI6939-68-61 17:30:00 Test Item Value Reference Range Interpretation Comments UA Urobilinogen (test code *NA*(01/08/2012 0.1-1.0 = UA Urobilinogen) 12:30:00) [facility] ResourcesHryczjiHKLMNGFUDI9984-99-96 17:30:00 Test Item Value Reference Range Interpretation Comments UA WBC (test code = 1 See_Comment N [Automa cruz message] The UA WBC) system which ge nerated this result transmit cruz reference range : <=5. The reference range was not used to interpr et this result as gee l/abnormal. [facility]LxtwdrlDLSYFFDGAZ5623-92-64 17:30:00 Test Item Value Reference Range Interpretation Comments UA RBC (test code = no gt See_Comment N [Automa cruz message] The UA RBC) system which ge nerated this result transmit cruz reference range : <=2. The reference range was not used to interpr et this result as gee l/abnormal. [facility] ResourcesZclhsnqEWMVFYFYZY5995-97-93 17:30:00 Test Item Value Reference Range Interpretation Comments UA Mucus (test code = Few /LPF UA Mucus) *NA*(01/08/2012 12:30:00) [facility]PimsohsMHGATKSQZW6911-86-50 17:30:00 Test Item Value Reference Range Interpretation Comments UA Nitrite (test code Negative (01/08/2012 N = UA Nitrite) 12:30:00) [facility] ResourcesRaknkmvIEEMFZUXMO1681-27-70 17:30:00 Test Item Value Reference Range Interpretation Comments UA Leuk Est (test Negative (01/08/2012 N code = UA Leuk Est) 12:30:00) [facility]HxnswgbWNFQGECNQX7437-88-72 17:30:00 Test Item Value Reference Range Interpretation Comments UA Ketones (test code Negative mg/dL = UA Ketones) *NA*(01/08/2012 12:30:00) [facility] ResourcesDeyimhjWJCACCAFWL3390-97-91 17:30:00 Test Item Value Reference Range Interpretation Comments UA Bili (test code = Negative *NA*(01/08/2012 UA Bili) 12:30:00) [facility]NldojejIECMKKGJPM8516-11-02 17:30:00 Test Item Value Reference Range Interpretation Comments UA Blood (test code = Negative (01/08/2012 N UA Blood) 12:30:00) [facility] ResourcesVoretpyYWZAIXDEGZ6212-99-04 17:30:00 Test Item Value Reference Range Interpretation Comments UA pH (test code = UA pH) 5.5 5.0-8.0 N [facility] ResourcesGdrtavlIEAWOQRBNR2241-88-85 17:30:00 Test Item Value Reference Range Interpretation Comments UA Protein (test code = 200 mg/dL A UA Protein) *ABN*(01/08/2012 12:30:00) [facility] ResourcesVgwcgigKVRBZEOCTA0720-04-87 17:30:00 Test Item Value Reference Range Interpretation Comments UA Glucose (test code Negative mg/dL = UA Glucose) *NA*(01/08/2012 12:30:00) [facility] ResourcesClyrxwkEYCAROGJHS3961-34-32 17:30:00 Test Item Value Reference Range Interpretation Comments UA Sq Epi (test code = UA Sq Epi) None Seen [facility] ResourcesFjhjotkSIQQMZHITH9950-27-50 17:30:00 Test Item Value Reference Range Interpretation Comments UA Spec Grav (test code = UA Spec Grav) 1.012 N [facility] CenterJtcabsiAMRRQIHTCH0412-93-07 17:30:00 Test Item Value Reference Range Interpretation Comments UA Color (test code = Yellow *NA*(01/08/2012 UA Color) 12:30:00) [facility]VhdoprfLKUJSTYETY6236-80-45 17:30:00 Test Item Value Reference Range Interpretation Comments UA Turbidity (test code = Clear (01/08/2012 N UA Turbidity) 12:30:00) [facility] CenterUjuwmarYvixfqvnqycu9229-26-37 17:30:00 Test Item Value Reference Range Interpretation Comments Culture: Urine (test code = Culture: Urine) [facility] CenterBatzjpjRBYXFNGWIO8462-01-33 17:30:00 Test Item Value Reference Range Interpretation Comments UA Urobilinogen (test code *NA*(01/08/2012 0.1-1.0 = UA Urobilinogen) 12:30:00) [facility] CenterPwohcteFAHTBAIJFK4097-72-59 17:30:00 Test Item Value Reference Range Interpretation Comments UA WBC (test code = 1 See_Comment N [Automa cruz message] The UA WBC) system which ge nerated this result transmit cruz reference range : <=5. The reference range was not used to interpr et this result as gee l/abnormal. [facility] CenterUejxvhcNHRNUBPNBO6776-81-11 17:30:00 Test Item Value Reference Range Interpretation Comments UA RBC (test code = no gt See_Comment N [Automa cruz message] The UA RBC) system which ge nerated this result transmit cruz reference range : <=2. The reference range was not used to interpr et this result as gee l/abnormal. [facility] CenterEmltfplTTKQKGIIXC4448-81-05 17:30:00 Test Item Value Reference Range Interpretation Comments UA Mucus (test code = Few /LPF UA Mucus) *NA*(01/08/2012 12:30:00) [facility] CenterRfdbfwqVAKFZIZJAY0613-26-95 17:30:00 Test Item Value Reference Range Interpretation Comments UA Nitrite (test code Negative (01/08/2012 N = UA Nitrite) 12:30:00) [facility] CenterViqghblVWGLYGOXTI2267-41-66 17:30:00 Test Item Value Reference Range Interpretation Comments UA Leuk Est (test Negative (01/08/2012 N code = UA Leuk Est) 12:30:00) [facility] CenterMckkllzQNNMLDSMSC8241-55-99 17:30:00 Test Item Value Reference Range Interpretation Comments UA Ketones (test code Negative mg/dL = UA Ketones) *NA*(01/08/2012 12:30:00) [facility] CenterMqadashORPEJPKQKW8087-95-92 17:30:00 Test Item Value Reference Range Interpretation Comments UA Bili (test code = Negative *NA*(01/08/2012 UA Bili) 12:30:00) [facility] CenterOhazaiwMKFAMUDLXV3438-78-01 17:30:00 Test Item Value Reference Range Interpretation Comments UA Blood (test code = Negative (01/08/2012 N UA Blood) 12:30:00) [facility] CenterEzzsvslEYKUZXBDJJ2258-58-54 17:30:00 Test Item Value Reference Range Interpretation Comments UA pH (test code = UA pH) 5.5 5.0-8.0 N [facility] CenterWcsdgaaERKYNBOCFC6557-87-04 17:30:00 Test Item Value Reference Range Interpretation Comments UA Protein (test code = 200 mg/dL A UA Protein) *ABN*(01/08/2012 12:30:00) [facility] CenterXbdxeleYCIHRWIVMF0200-68-01 17:30:00 Test Item Value Reference Range Interpretation Comments UA Glucose (test code Negative mg/dL = UA Glucose) *NA*(01/08/2012 12:30:00) [facility] CenterEvelgfrHXPPWSLTZX0471-99-60 17:30:00 Test Item Value Reference Range Interpretation Comments UA Sq Epi (test code = UA Sq Epi) None Seen [facility] CenterJfeyptoPYVPMSBMLD1286-52-80 17:30:00 Test Item Value Reference Range Interpretation Comments UA Spec Grav (test code = UA Spec Grav) 1.012 N [facility] CenterOxywcnwJEETTBPBRB9404-41-61 17:30:00 Test Item Value Reference Range Interpretation Comments UA Color (test code = Yellow *NA*(01/08/2012 UA Color) 12:30:00) [facility] CenterYkmtrjvLBHHBZZCNW2638-74-04 17:30:00 Test Item Value Reference Range Interpretation Comments UA Turbidity (test code = Clear (01/08/2012 N UA Turbidity) 12:30:00) [facility] CenterKjzqebgUmvdzlgvmtdt7681-14-82 17:30:00 Test Item Value Reference Range Interpretation Comments Culture: Urine (test code = Culture: Urine) [facility] CenterRckjspoQCTRDVXWRD6996-87-41 17:30:00 Test Item Value Reference Range Interpretation Comments UA Urobilinogen (test code *NA*(01/08/2012 0.1-1.0 = UA Urobilinogen) 12:30:00) [facility] CenterYgiqmxoANVKNPCASV9821-41-28 17:30:00 Test Item Value Reference Range Interpretation Comments UA WBC (test code = 1 See_Comment N [Automa cruz message] The UA WBC) system which ge nerated this result transmit cruz reference range : <=5. The reference range was not used to interpr et this result as gee l/abnormal. [facility] CenterKqxxxpiHYDQKRJZEN2105-69-22 17:30:00 Test Item Value Reference Range Interpretation Comments UA RBC (test code = no gt See_Comment N [Automa cruz message] The UA RBC) system which ge nerated this result transmit cruz reference range : <=2. The reference range was not used to interpr et this result as gee l/abnormal. [facility] CenterKhnwoxtHMYPCORUFB5366-08-13 17:30:00 Test Item Value Reference Range Interpretation Comments UA Mucus (test code = Few /LPF UA Mucus) *NA*(01/08/2012 12:30:00) [facility] CenterPkslbqjFLYRSRQYEA7589-89-23 17:30:00 Test Item Value Reference Range Interpretation Comments UA Nitrite (test code Negative (01/08/2012 N = UA Nitrite) 12:30:00) [facility] CenterJdaabrtAZVOCKYAZW2923-45-88 17:30:00 Test Item Value Reference Range Interpretation Comments UA Leuk Est (test Negative (01/08/2012 N code = UA Leuk Est) 12:30:00) [facility] CenterHxpldwxMSOISQZFOQ8962-83-39 17:30:00 Test Item Value Reference Range Interpretation Comments UA Ketones (test code Negative mg/dL = UA Ketones) *NA*(01/08/2012 12:30:00) [facility] CenterXqlkdpsGKFECLTNDJ9488-58-92 17:30:00 Test Item Value Reference Range Interpretation Comments UA Bili (test code = Negative *NA*(01/08/2012 UA Bili) 12:30:00) [facility] CenterFmxlozxXPNRHYKWOX6597-80-02 17:30:00 Test Item Value Reference Range Interpretation Comments UA Blood (test code = Negative (01/08/2012 N UA Blood) 12:30:00) [facility] CenterHyuhrmeUCXOVXZJZT2915-26-42 17:30:00 Test Item Value Reference Range Interpretation Comments UA pH (test code = UA pH) 5.5 5.0-8.0 N [facility] CenterUxdnxtkPCSNJFTUHS3112-57-10 17:30:00 Test Item Value Reference Range Interpretation Comments UA Protein (test code = 200 mg/dL A UA Protein) *ABN*(01/08/2012 12:30:00) [facility] CenterEmeoypdIWQPLQQYKQ0593-86-89 17:30:00 Test Item Value Reference Range Interpretation Comments UA Glucose (test code Negative mg/dL = UA Glucose) *NA*(01/08/2012 12:30:00) [facility]HlguojtIHFDOALKAE9252-60-99 17:30:00 Test Item Value Reference Range Interpretation Comments UA Sq Epi (test code = UA Sq Epi) None Seen [facility] ResourcesRefxkccOKRUXPFQTS8356-50-92 17:30:00 Test Item Value Reference Range Interpretation Comments UA Spec Grav (test code = UA Spec Grav) 1.012 N [facility] Resourc[id number] 17:30:00 Test Item Value Reference Range Interpretation Comments UA Color (test code = Yellow *NA*(01/08/2012 UA Color) 12:30:00) [id number] 17:30:00 Test Item Value Reference Range Interpretation Comments UA Turbidity (test code = Clear (01/08/2012 N UA Turbidity) 12:30:00) [facility]OuvoiotQtvuszqsgmaq1959-25-81 17:30:00 Test Item Value Reference Range Interpretation Comments Culture: Urine (test code = Culture: Urine) [id number] 17:30:00 Test Item Value Reference Range Interpretation Comments UA Urobilinogen (test code *NA*(01/08/2012 0.1-1.0 = UA Urobilinogen) 12:30:00) [facility] Resourc[id number] 17:30:00 Test Item Value Reference Range Interpretation Comments UA WBC (test code = 1 See_Comment N [Automa cruz message] The UA WBC) system which ge nerated this result transmit cruz reference range : <=5. The reference range was not used to interpr et this result as gee l/abnormal. [facility] Cent[id number] 17:30:00 Test Item Value Reference Range Interpretation Comments UA RBC (test code = no gt See_Comment N [Automa cruz message] The UA RBC) system which ge nerated this result transmit cruz reference range : <=2. The reference range was not used to interpr et this result as gee l/abnormal. [facility] Res[id number] 17:30:00 Test Item Value Reference Range Interpretation Comments UA Mucus (test code = Few /LPF UA Mucus) *NA*(01/08/2012 12:30:00) [facility] Res[id number] 17:30:00 Test Item Value Reference Range Interpretation Comments UA Nitrite (test code Negative (01/08/2012 N = UA Nitrite) 12:30:00) [facility] [id number] 17:30:00 Test Item Value Reference Range Interpretation Comments UA Leuk Est (test Negative (01/08/2012 N code = UA Leuk Est) 12:30:00) [facility] Resourc[id number] 17:30:00 Test Item Value Reference Range Interpretation Comments UA Ketones (test code Negative mg/dL = UA Ketones) *NA*(01/08/2012 12:30:00) [facility] ResourcesAjdrxxvCVMELAFFNZ3604-33-09 17:30:00 Test Item Value Reference Range Interpretation Comments UA Bili (test code = Negative *NA*(01/08/2012 UA Bili) 12:30:00) [facility] Cent[id number] 17:30:00 Test Item Value Reference Range Interpretation Comments UA Blood (test code = Negative (01/08/2012 N UA Blood) 12:30:00) [facility] Resourc[id number] 17:30:00 Test Item Value Reference Range Interpretation Comments UA pH (test code = UA pH) 5.5 5.0-8.0 N [facility] CenterBvowawcTZMZQLHFCA6026-66-43 17:30:00 Test Item Value Reference Range Interpretation Comments UA Protein (test code = 200 mg/dL A UA Protein) *ABN*(01/08/2012 12:30:00) [facility] CenterAbxymbaJRUIKFLXMG1010-12-46 17:30:00 Test Item Value Reference Range Interpretation Comments UA Glucose (test code Negative mg/dL = UA Glucose) *NA*(01/08/2012 12:30:00) [facility] CenterUopmlxeBDAUOHVSLC6912-49-24 17:30:00 Test Item Value Reference Range Interpretation Comments UA Sq Epi (test code = UA Sq Epi) None Seen [facility] CenterBvmesusYCCLWQYMJG6830-84-27 17:30:00 Test Item Value Reference Range Interpretation Comments UA Spec Grav (test code = UA Spec Grav) 1.012 N [facility] Cent[id number] 17:30:00 Test Item Value Reference Range Interpretation Comments UA Color (test code = Yellow *NA*(01/08/2012 UA Color) 12:30:00) [facility] Cent[id number] 17:30:00 Test Item Value Reference Range Interpretation Comments UA Turbidity (test code = Clear (01/08/2012 N UA Turbidity) 12:30:00) [facility] CenterYnslucaAjfrsxemhdiy0818-74-71 17:30:00 Test Item Value Reference Range Interpretation Comments Culture: Urine (test code = Culture: Urine) [facility] Cent[id number] 17:30:00 Test Item Value Reference Range Interpretation Comments UA Urobilinogen (test code *NA*(01/08/2012 0.1-1.0 = UA Urobilinogen) 12:30:00) [facility] CenterQmwgicyGTOLPCJCTD2121-88-74 17:30:00 Test Item Value Reference Range Interpretation Comments UA WBC (test code = UA WBC) 1 <=5 N [facility] CenterXjmedttILVEPERYBV9597-67-60 17:30:00 Test Item Value Reference Range Interpretation Comments UA RBC (test code = UA RBC) no gt <=2 N [facility] CenterKmlhlubMUXDITEJKA8814-22-95 17:30:00 Test Item Value Reference Range Interpretation Comments UA Mucus (test code = Few /LPF UA Mucus) *NA*(01/08/2012 12:30:00) [facility] CenterMhpsdjaOPYLYDHISD0598-70-83 17:30:00 Test Item Value Reference Range Interpretation Comments UA Nitrite (test code Negative (01/08/2012 N = UA Nitrite) 12:30:00) [facility] CenterQdsvtlgLNVPNZMRWR8526-96-97 17:30:00 Test Item Value Reference Range Interpretation Comments UA Leuk Est (test Negative (01/08/2012 N code = UA Leuk Est) 12:30:00) [facility] CenterIppkiqlXTTHYCKUTD9629-29-35 17:30:00 Test Item Value Reference Range Interpretation Comments UA Ketones (test code Negative mg/dL = UA Ketones) *NA*(01/08/2012 12:30:00) [facility] CenterFgojghuVZTKTYVVCN3944-21-56 17:30:00 Test Item Value Reference Range Interpretation Comments UA Bili (test code = Negative *NA*(01/08/2012 UA Bili) 12:30:00) [facility] CenterDpbpwccQEAYMLOBCS9707-72-08 17:30:00 Test Item Value Reference Range Interpretation Comments UA Blood (test code = Negative (01/08/2012 N UA Blood) 12:30:00) [facility] CenterObfzafdNTAJAXDXYN0107-41-18 17:30:00 Test Item Value Reference Range Interpretation Comments UA pH (test code = UA pH) 5.5 5.0-8.0 N [facility] CenterFcrtjuiAMAENBJNDY8235-58-88 17:30:00 Test Item Value Reference Range Interpretation Comments UA Protein (test code = 200 mg/dL A UA Protein) *ABN*(01/08/2012 12:30:00) [facility] Cent[id number] 17:30:00 Test Item Value Reference Range Interpretation Comments UA Glucose (test code Negative mg/dL = UA Glucose) *NA*(01/08/2012 12:30:00) [facility] Cent[id number] 17:30:00 Test Item Value Reference Range Interpretation Comments UA Sq Epi (test code = UA Sq Epi) None Seen [facility]DjptiejSGDPEIMXJW3708-18-75 17:30:00 Test Item Value Reference Range Interpretation Comments UA Spec Grav (test code = UA Spec Grav) 1.012 N [facility] CenterKvonydmGTISZOCRIZ4631-93-09 17:30:00 Test Item Value Reference Range Interpretation Comments UA Color (test code = Yellow *NA*(01/08/2012 UA Color) 12:30:00) [facility] CenterQbllmpsNQLSGOIPRH2889-88-21 17:30:00 Test Item Value Reference Range Interpretation Comments UA Turbidity (test code = Clear (01/08/2012 N UA Turbidity) 12:30:00) [facility] CenterCexhyrqQvglfkeucuij1417-59-76 17:30:00 Test Item Value Reference Range Interpretation Comments Culture: Urine (test code = Culture: Urine) [facility] CenterFfrhttwNSYTYMQTXF6306-91-17 17:30:00 Test Item Value Reference Range Interpretation Comments UA Urobilinogen (test code *NA*(01/08/2012 0.1-1.0 = UA Urobilinogen) 12:30:00) [id number] 17:30:00 Test Item Value Reference Range Interpretation Comments UA WBC (test code = UA WBC) 1 <=5 N [facility] ResourcesKuzxigiLQQYAPYBZO1204-64-51 17:30:00 Test Item Value Reference Range Interpretation Comments UA RBC (test code = UA RBC) no gt <=2 N [facility] ResourcesBioywpjYDIEQINDFV2816-16-69 17:30:00 Test Item Value Reference Range Interpretation Comments UA Mucus (test code = Few /LPF UA Mucus) *NA*(01/08/2012 12:30:00) [facility]OqmkucrBXWCYLXBUV2976-59-12 17:30:00 Test Item Value Reference Range Interpretation Comments UA Nitrite (test code Negative (01/08/2012 N = UA Nitrite) 12:30:00) [facility] ResourcesGztjnfpCITWCVVISX6032-59-54 17:30:00 Test Item Value Reference Range Interpretation Comments UA Leuk Est (test Negative (01/08/2012 N code = UA Leuk Est) 12:30:00) [facility] Resourc[id number] 17:30:00 Test Item Value Reference Range Interpretation Comments UA Ketones (test code Negative mg/dL = UA Ketones) *NA*(01/08/2012 12:30:00) [facility] Resourc[id number] 17:30:00 Test Item Value Reference Range Interpretation Comments UA Bili (test code = Negative *NA*(01/08/2012 UA Bili) 12:30:00) [facility]XwbwolpHEVRQSOIQG2782-01-49 17:30:00 Test Item Value Reference Range Interpretation Comments UA Blood (test code = Negative (01/08/2012 N UA Blood) 12:30:00) [facility] ResourcesMkiahtqDUHTUHIGKC2003-93-76 17:30:00 Test Item Value Reference Range Interpretation Comments UA pH (test code = UA pH) 5.5 5.0-8.0 N [facility] ResourcesAtxpzfrBEKRFMBXTS4644-21-17 17:30:00 Test Item Value Reference Range Interpretation Comments UA Protein (test code = 200 mg/dL A UA Protein) *ABN*(01/08/2012 12:30:00) [facility] CenterBuyryvyDUSMPYNUHF0783-21-47 17:30:00 Test Item Value Reference Range Interpretation Comments UA Glucose (test code Negative mg/dL = UA Glucose) *NA*(01/08/2012 12:30:00) [facility] CenterFghqtccYSSVUTDHGQ4736-86-29 17:30:00 Test Item Value Reference Range Interpretation Comments UA Sq Epi (test code = UA Sq Epi) None [facility]en [facility] CenterMrtwqavYCIVIPOVBA5579-96-33 17:30:00 Test Item Value Reference Range Interpretation Comments UA Spec Grav (test code = UA Spec Grav) 1.012 N [facility] Cent[id number] 17:30:00 Test Item Value Reference Range Interpretation Comments UA Color (test code = Yellow *NA*(01/08/2012 UA Color) 12:30:00) [facility] CenterIsnudzpLCIHCCOUWE6371-98-79 17:30:00 Test Item Value Reference Range Interpretation Comments UA Turbidity (test code = Clear (01/08/2012 N UA Turbidity) 12:30:00) [facility] CenterItjgmuoVqsztotwukdy9804-58-67 17:30:00 Test Item Value Reference Range Interpretation Comments Culture: Urine (test code = Culture: Urine) [facility] History and Physical Notes Date/Time Note Provider Source 2022-12-14 17:17:00 [id number]:17:00Hanna Frank Tyesha Clarke MD: PERFORMEvent Display: History and PhysicalAuthored Date: [id number] and Physical Primary Team Name:Team Contact Info:PCP Contact info:Family contact info: Rosy Ingram (friend) Code Status: None Specified=FULL CODE Chief Complaint: LUE swelling History of Present Illness: 57M w/ ESRD on HD (MWF), HTN, Hx CVA 10/2013 (residual LUE weakness and left facial droop), past polysubstance abuse > 10 years ago 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 Patient has [...] for possible revision with [facility] in [place], however surgery has been postponed 2/2 supply [...] consult for intervention Ordered: Admit/Condition, 12/03/22 5:29:00 [employer]TE[employer], Status: Inpatient, Acute, Expected LOS: 2 Midnights, Hanna Frank MD, Admit Review/Approve Yes, Isolation: No Isolation/Standard Precautions, Complications, dialysis, catheter, mechanical | ESRD on hemodialysis 2. ESRD on hemodialysis (N18.6) Ordered: Renvela, 1,600 mg, Route: PO, TID-Meals, Dosing Weight 91.364, kg, Start date: 12/03/22 8:00:00 [employer] MA[employer]TENA[employer]CE MECH[employer]IC, Duration: 30 day, Stop date: 01/01/23 17:00:00 CDT, Admit/Condition, 12/03/22 5:29:00 [employer]TE[employer]CE ME[employer]IC, Status: Inpatient, Acute, Expected LOS: 2 Midnights, Hanna Frank MD, Admit Review/Approve Yes, Isolation: No Isolation/Standard Precautions, Complications, dialysis, catheter, mechanical | ESRD on hemodialysis 3. HTN (hypertension) (I10) Ordered: metoprolol tartrate, 25 mg, Route: PO, Drug form: TAB, Q12H, Dosing Weight 91.364, kg, Start date: 12/03/22 9:00:00 [employer] MAINTENANCE MECH[employer]IC, Duration: 30 day, Stop date: 01/01/23 21:00:00 CDT 4. History of stroke in adulthood (Z86.73) Residual LUE weakness/near paralysis and left facial droop N.p.o. after 3 AM for vascular surgery evaluation Prophylaxis -SCDs-Holding chemical VTE PPx at this time for evaluation for possible same-day invasive procedure Disposition Inpatient admissionHanna Frank MDElectronically Signed: 12/03/22 05:[id number] and physicalLNHistory and physicalTXTAVAvailable for patient careBrockton HospitalOsfkdjerm2478-67-73P66:09:33 2022-12-14 17:17:00 1632-57-99N72:17:00BaHanna ascencio MD: PERFOR[employer]vent Display: History and PhysicalAuthored Date: [id number] and Physical Primary Team Name:Team Contact Info:PCP Contact info:Family contact info: Rosy Ingram (friend) Code Status: None Specified=FULL CODE Chief Complaint: LUE swelling History of Present Illness: 57M w/ ESRD on HD (MWF), HTN, Hx CVA 10/2013 (residual LUE weakness and left facial droop), past polysubstance abuse > 10 years ago 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 Patient has [...] for possible revision with [facility] in [place], however surgery has been postponed 2/2 supply [...] consult for intervention Ordered: Admit/Condition, 12/03/22 5:29:00 [employer] MA[employer]TE[employer]NCE MECH[employer]IC, Status: Inpatient, Acute, Expected LOS: 2 Midnights, Hanna Frank MD, Khoa MORA Review/Approve Yes, Isolation: No Isolation/Standard Precautions, Complications, dialysis, catheter, mechanical | ESRD on hemodialysis 2. ESRD on hemodialysis (N18.6) Ordered: Renvela, 1,600 mg, Route: PO, TID-Meals, Dosing Weight 91.364, kg, Start date: 12/03/22 8:00:00 ETH[employer] MA[employer]TENANCE MECH[employer]IC, Duration: 30 day, Stop date: 01/01/23 17:00:00 CDT, Admit/Condition, 12/03/22 5:29:00 [employer] MA[employer]TENANCE MECH[employer]IC, Status: Inpatient, Acute, Expected LOS: 2 Midnights, Hanna Frank MD, Khoa MORA Review/Approve Yes, Isolation: No Isolation/Standard Precautions, Complications, dialysis, catheter, mechanical | ESRD on hemodialysis 3. HTN (hypertension) (I10) Ordered: metoprolol tartrate, 25 mg, Route: PO, Drug form: TAB, Q12H, Dosing Weight 91.364, kg, Start date: 12/03/22 9:00:00 ETH[employer] MAINTENANCE MECHANIC, Duration: 30 day, Stop date: 01/01/23 21:00:00 CDT 4. History of stroke in adulthood (Z86.73) Residual LUE weakness/near paralysis and left facial droop N.p.o. after 3 AM for vascular surgery evaluation Prophylaxis -SCDs-Holding chemical VTE PPx at this time for evaluation for possible same-day invasive procedure Disposition Inpatient admissionHanna Frank MDElectronically Signed: 12/03/22 05:[id number] and physicalLNHistory and physicalTXTAVAvailable for patient careBrockton HospitalGsrxrgbsk1249-03-78X23:09:33 2022-12-14 17:17:00 1653-62-65A45:17:00BaHanna ascencio Tyesha Clarke MD: PER[employer] Display: History and PhysicalAuthored Date: [id number] and Physical Primary Team Name:Team Contact Info:PCP Contact info:Family contact info: Rosy Ingram (friend) Code Status: None Specified=FULL CODE Chief Complaint: LUE swelling History of Present Illness: 57M w/ ESRD on HD (MWF), HTN, Hx CVA 10/2013 (residual LUE weakness and left facial droop), past polysubstance abuse > 10 years ago 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 Patient has [...] for possible revision with [facility] in [place], however surgery has been postponed 2/2 supply [...] consult for intervention Ordered: Admit/Condition, 12/03/22 5:29:00 ETH[employer] MA[employer]TENANCE MECH[employer]IC, Status: Inpatient, Acute, Expected LOS: 2 Midnights, Hanna Frank MD, Admit MD Review/Approve Yes, Isolation: No Isolation/Standard Precautions, Complications, dialysis, catheter, mechanical | ESRD on hemodialysis 2. ESRD on hemodialysis (N18.6) Ordered: Renvela, 1,600 mg, Route: PO, TID-Meals, Dosing Weight 91.364, kg, Start date: 12/03/22 8:00:00 ETH[employer]OL MAINTENANCE MECHANIC, Duration: 30 day, Stop date: 01/01/23 17:00:00 CDT, Admit/Condition, 12/03/22 5:29:00 ETH[employer] MAINTENANCE MECH[employer]IC, Status: Inpatient, Acute, Expected LOS: 2 Midnights, Hanna Frank MD, Admit Review/Approve Yes, Isolation: No Isolation/Standard Precautions, Complications, dialysis, catheter, mechanical | ESRD on hemodialysis 3. HTN (hypertension) (I10) Ordered: metoprolol tartrate, 25 mg, Route: PO, Drug form: TAB, Q12H, Dosing Weight 91.364, kg, Start date: 12/03/22 9:00:00 ETH[employer]OL MAINTENANCE MECHANIC, Duration: 30 day, Stop date: 01/01/23 21:00:00 CDT 4. History of stroke in adulthood (Z86.73) Residual LUE weakness/near paralysis and left facial droop N.p.o. after 3 AM for vascular surgery evaluation Prophylaxis -SCDs-Holding chemical VTE PPx at this time for evaluation for possible same-day invasive procedure Disposition Inpatient admissionHanna Frank MDElectronically Signed: 12/03/22 05:[id number] and physicalLNHistory and physicalTXTAVAvailable for patient [id number] and physicalLNMHIEBaker Memorial HospitalVmvhtfeis3762-40-48O13:09:33 2022-12-14 17:17:00 2272-42-69F49:17:00BaHanna ascencio Tyesha Clarke MD: PERFORMEvent Display: History and PhysicalAuthored Date: [id number] and Physical Primary Team Name:Team Contact Info:PCP Contact info:Family contact info: Rosy Ingram (friend) Code Status: None Specified=FULL CODE Chief Complaint: LUE swelling History of Present Illness: 57M w/ ESRD on HD (MWF), HTN, Hx CVA 10/2013 (residual LUE weakness and left facial droop), past polysubstance abuse > 10 years ago 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 Patient has [...] for possible revision with [facility] in [place], however surgery has been postponed 2/2 supply [...] consult for intervention Ordered: Admit/Condition, 12/03/22 5:29:00 ETH[employer] MAINTENANCE MECHANIC, Status: Inpatient, Acute, Expected LOS: 2 Midnights, Hanna Frank MD, Admit Review/Approve Yes, Isolation: No Isolation/Standard Precautions, Complications, dialysis, catheter, mechanical | ESRD on hemodialysis 2. ESRD on hemodialysis (N18.6) Ordered: Renvela, 1,600 mg, Route: PO, TID-Meals, Dosing Weight 91.364, kg, Start date: 12/03/22 8:00:00 ETHANOL MAINTENANCE MECHANIC, Duration: 30 day, Stop date: 01/01/23 17:00:00 CDT, Admit/Condition, 12/03/22 5:29:00 ETHANOL MAINTENANCE MECHANIC, Status: Inpatient, Acute, Expected LOS: 2 Midnights, Hanna Frank MD, Admit Review/Approve Yes, Isolation: No Isolation/Standard Precautions, Complications, dialysis, catheter, mechanical | ESRD on hemodialysis 3. HTN (hypertension) (I10) Ordered: metoprolol tartrate, 25 mg, Route: PO, Drug form: TAB, Q12H, Dosing Weight 91.364, kg, Start date: 12/03/22 9:00:00 ETHANOL MAINTENANCE MECHANIC, Duration: 30 day, Stop date: 01/01/23 21:00:00 CDT 4. History of stroke in adulthood (Z86.73) Residual LUE weakness/near paralysis and left facial droop N.p.o. after 3 AM for vascular surgery evaluation Prophylaxis -SCDs-Holding chemical VTE PPx at this time for evaluation for possible same-day invasive procedure Disposition Inpatient admissionBaHanna ascencio MDElectronically Signed: 12/03/22 05:[id number] and physicalLNHistory and physicalTXTAVAvailable for patient [id number] and physicalLNMHIE Ontharfcg3296-46-05M90:09:33
[2023-07-04 09:29] LABS: Absolute Lymphocytes (CBC) 1.1 K/uL (0.7-4.9); Hematocrit 38.9 % (39.6-49.0); Lymphocytes % 20.2 % (15.3-44.8); MCV 97.7 fL (80-100); MPV 9.2 fL (7.6-11.3); Platelets 206 thou/uL (152-406); RBC Red Blood Cell Count 3.99 M/uL (4.33-5.43)
[2023-07-04 09:48] LABS: Albumin 3.3 g/dL (3.4-5.0); Bilirubin Direct 0.2 mg/dL (0-0.2); Bilirubin Indirect, Calculated 0.4 mg/dL (0.2-0.8); Bilirubin Total 0.6 mg/dL (0.2-1.0); Magnesium 2.2 mg/dL (1.6-2.4); Potassium 3.6 mEq/L (3.5-5.1); Protein, Total 7.9 g/dL (6.4-8.2)
--- NOTE | 2023-07-04 10:10 | RAD REPORT ---
EXAM DESCRIPTION: RADChest Single View07/04/2023 9:32 am CLINICAL HISTORY: DYSPNEA COMPARISON: Chest Single View dated 06/25/2023; Chest Single View dated 05/28/2023; Chest Single View dated 05/10/2023; Chest Single View dated 03/31/2023; Chest Abd Pelvis Wo Con dated 05/28/2023 TECHNIQUE: Portable AP view of the chest. FINDINGS: No pneumothorax. Central mild streaky opacities, stable. Right small pleural effusion, wor sened since the prior exam. The cardiomediastinal contours are unremarkable. Left subclavian vascula r stent in place. IMPRESSION: Worsening small right pleural effusion. Underlying pneumonia cannot be excluded. Stable central streaky opacities, may relate to scarring or mild central congestion.
[2023-07-04 10:17] LABS: Blood Morphology Comment NOT SEEN (NOT SEEN); Platelet Estimate ADEQ; White Blood Cell Scan OK (OK)
--- NOTE | 2023-07-04 10:52 | EDPHYS ---
Physician Documentation [facility] Name: Ben Otto Age: 57 yrs Sex: Male : 1965 Arrival Date: 07/04/2023 Time: 08:33 Bed 19 Private MD: ED Physician Elton Aguayo HPI: 07/04 10:54 This 57 yrs old Male presents to ER via EMS with complaints of Shortness Of rt Breath, High Blood Pressure. 10:54 Patient with history of end-stage renal disease presents to the ED with dyspnea rt starting overnight when he was lying down flat. Has improved, he is back to his baseline currently. Denies any chest pain. He is due for dialysis today. Denies other acute complaints, symptoms are moderate in severity, no other aggravating elevating factors.. Historical: - PMHx: 08:57 CVA; Dialysis; Hypertensive disorder; kd3 - Immunization history:: Adult Immunizations up to date. - Social history:: Smoking status: Patient/guardian denies using tobacco, but has a distant history of tobacco abuse. - Family history:: not pertinent. ROS: 10:54 Constitutional: Negative for fever, chills, and weight loss, Cardiovascular: Negative rt for chest pain, palpitations, and edema, Abdomen/GI: Negative for abdominal pain, nausea, vomiting, diarrhea, and constipation, MS/Extremity: Negative for injury and deformity, Skin: Negative for injury, rash, and discoloration, Neuro: Negative for headache, weakness, numbness, tingling, and seizure, Psych: Negative for depression, anxiety, suicide ideation, homicidal ideation, and hallucinations, 10:54 Respiratory: Positive for cough, shortness of breath, Exam: 10:54 ECG was reviewed by the Attending Physician. rt 10:54 Constitutional: This is a well developed, well nourished patient who is awake, alert, rt and in no acute distress. Head/Face: Normocephalic, atraumatic. Chest/axilla: Normal chest wall appearance and motion. Nontender with no deformity. No lesions are appreciated. Cardiovascular: Regular rate and rhythm with a normal S1 and S2. No gallops, murmurs, or rubs. Normal PMI, no JVD. No pulse deficits. Respiratory: Lungs have equal breath sounds bilaterally, clear to auscultation and percussion. No rales, rhonchi or wheezes noted. No increased work of breathing, no retractions or nasal flaring. Abdomen/GI: Soft, non-tender, with normal bowel sounds. No distension or tympany. No guarding or rebound. No evidence of tenderness throughout. Skin: Warm, dry with normal turgor. Normal color with no rashes, no lesions, and no evidence of cellulitis. MS/ Extremity: Pulses equal, no cyanosis. Neurovascular intact. Full, normal range of motion. Psych: Awake, alert, with orientation to person, place and time. Behavior, mood, and affect are within normal limits. Vital Signs: 08:49 BP 170 / 92; Pulse 57; Resp 19; Temp 98.1(O); Pulse Ox 98% on R/A; Weight 85 kg; kd3 10:05 BP 189 / 101; Pulse 54; Resp 19; Pulse Ox 98% on R/A; kd3 11:13 BP 171 / 95; Pulse 57; Resp 15; Pulse Ox 98% on R/A; kd3 MDM: 08:52 Patient medically screened. rt 10:54 Differential diagnosis: Pneumonia, CHF, ACS. Data reviewed: vital signs, nurses notes, rt lab test result(s), EKG, radiologic studies. Consideration of Admission/Observation Escalation of care including admission/observation considered. No clinical indicators for sepsis, no hypoxia, no indications for admission at this time.. I considered the following discharge prescriptions or medication management in the emergency department. Independent interpretation of the following test(s) in the Emergency Department X-Ray: My interpretation is Small consolidations and interpretation of the x-ray images. Test considered but Not performed: CT: Do not suspect PE, CT angiogram not indicated. Care significantly affected by the following chronic conditions: Hypertension, Chronic Kidney Disease. Counseling: I had a detailed discussion with the patient and/or guardian regarding the historical points, exam findings, and any diagnostic results supporting the discharge/admit diagnosis, lab results, radiology results, the need for outpatient follow up, to return to the emergency department if symptoms worsen or persist or if there are any questions or concerns that arise at home. 07/04 08:59 Order name: Basic Metabolic Panel; Complete Time: 09:50 rt 07/04 08:59 Order name: CBC with Diff; Complete Time: 10:19 rt 07/04 08:59 Order name: LFT's; Complete Time: 09:50 rt 07/04 08:59 Order name: Magnesium; Complete Time: 09:50 rt 07/04 08:59 Order name: Troponin HS; Complete Time: 09:50 rt 07/04 10:17 Order name: CBC Smear Scan; Complete Time: 10:19 EDMS 07/04 08:59 Order name: XRAY Chest (1 view); Complete Time: 10:15 rt 07/04 08:59 Order name: EKG; Complete Time: 09:00 rt 07/04 08:59 Order name: Cardiac monitoring; Complete Time: 09:22 rt 07/04 08:59 Order name: EKG - Nurse/Tech; Complete Time: 09:22 rt 07/04 08:59 Order name: IV Saline Lock; Complete Time: 09:22 rt 07/04 08:59 Order name: Labs collected and sent; Complete Time: 09:22 rt 07/04 08:59 Order name: O2 Per Protocol; Complete Time: 09:01 rt 07/04 08:59 Order name: O2 Sat Monitoring; Complete Time: 09:01 rt EC:54 Rate is 58 beats/min. Rhythm is regular, Sinus bradycardia with No ectopy. QRS Felicity is rt Normal. [place] interval is normal. QT interval is normal. No Q waves. T waves are Normal. No ST changes noted. Interpreted by me. Administered Medications: No medications were administered Disposition Summary: 07/04/23 10:52 Discharge Ordered Notes: Location: Home rt Problem: new rt Symptoms: have improved rt Condition: Stable rt Diagnosis - Community-acquired pneumonia rt Followup: rt - With: Private Physician - When: 2 - 3 days - Reason: Discharge Instructions: - Discharge Summary Sheet rt - Community-Acquired Pneumonia, Adult rt Forms: - Medication Reconciliation Form rt - Thank You Letter rt - Antibiotic Education rt - Prescription Opioid Use rt - Patient Portal Instructions rt - Leadership Thank You Letter rt Prescriptions: - azithromycin 250 mg Oral tablet - take 1 dose pack ORAL route as directed on dose pack For 250 mg dose pack: take rt 500 mg today (day 1), then 250 mg for 4 days (days 2-5); 6 tablet; Refills: 0, Product Selection Permitted Signatures: Dispatcher [facility] [employer] Machelle Patricio RN RN kd3 [place], Elton, MD MD rt
--- NOTE | 2023-07-04 10:52 | ER ---
Nurse's Notes [facility] Name: Ben Otto Age: 57 yrs Sex: Male : 1965 Arrival Date: 07/04/2023 Time: 08:33 Bed 19 Private MD: Diagnosis: Community-acquired pneumonia Presentation: 07/04 08:49 Chief complaint: EMS states: [facility] transported the patient after being called by kd3 his caregiver for high blood pressure. At home, patient's blood pressure was 180/100. In route, the patient began to complain of shortness of breath that is worse when laying down flat. Coronavirus screen: Vaccine status: Patient reports receiving the 2nd dose of the covid vaccine. Ebola Screen: No symptoms or risks identified at this time. Initial Sepsis Screen: Does the patient meet any 2 criteria? No. Patient's initial sepsis screen is negative. Does the patient have a suspected source of infection? No. Patient's initial sepsis screen is negative. Risk Assessment: Do you want to hurt yourself or someone else? Patient reports no desire to harm self or others. Onset of symptoms was July 04, 2023. 08:49 Method Of Arrival: EMS: [facility] kd3 08:49 Acuity: JEREMY 3 kd3 Triage Assessment: 08:57 General: Appears uncomfortable. General: Behavior is calm, cooperative. Pain: Denies kd3 pain. Respiratory: Reports shortness of breath at rest Onset: The symptoms/episode began/occurred this morning, the patient has moderate shortness of breath. Historical: - PMHx: 08:57 CVA; Dialysis; Hypertensive disorder; kd3 - Immunization history:: Adult Immunizations up to date. - Social history:: Smoking status: Patient/guardian denies using tobacco, but has a distant history of tobacco abuse. - Family history:: not pertinent. Screenin:59 [facility] ED Fall Risk Assessment (Adult) History of falling in the last 3 months, kd3 including since admission No falls in past 3 months (0 pts) Confusion or Disorientation No (0 pts) Intoxicated or Sedated No (0 pts) Impaired Gait No (0 pts) Mobility Assist Device Used No (0 pt) Altered Elimination No (0 pt) Score/Fall Risk Level 0 - 2 = Low Risk Maintained a safe environment. Abuse screen: Denies threats or abuse. Denies injuries from another. Nutritional screening: No deficits noted. Tuberculosis screening: No symptoms or risk factors identified. Assessment: 09:00 Cardiovascular: Patient's skin is warm and dry. Rhythm is regular. Respiratory: Airway kd3 is patent Respiratory effort is even, Breath sounds are diminished in left lower lobe and right lower lobe. 11:12 General: Appears in no apparent distress. Behavior is calm, cooperative. Neuro: Level kd3 of Consciousness is awake, alert, obeys commands, Oriented to person, place, time, situation. Vital Signs: 08:49 BP 170 / 92; Pulse 57; Resp 19; Temp 98.1(O); Pulse Ox 98% on R/A; Weight 85 kg; kd3 10:05 BP 189 / 101; Pulse 54; Resp 19; Pulse Ox 98% on R/A; kd3 11:13 BP 171 / 95; Pulse 57; Resp 15; Pulse Ox 98% on R/A; kd3 ED Course: 08:48 Patient arrived in ED. jl7 08:48 Machelle Simmons, JOBY is Primary Nurse. kd3 08:51 Elton Aguayo MD is Attending Physician. rt 08:57 Triage completed. kd3 08:57 Arm band placed on right wrist. kd3 09:00 Patient has correct armband on for positive identification. kd3 09:22 Basic Metabolic Panel Sent. kd3 09:22 CBC with Diff Sent. kd3 09:22 LFT's Sent. kd3 09:22 Magnesium Sent. kd3 09:22 Troponin HS Sent. kd3 09:33 XRAY Chest (1 view) In Process Unspecified. EDMS 11:13 No provider procedures requiring assistance completed. kd3 11:14 Provided Education on: . kd3 11:14 IV discontinued, intact, bleeding controlled, No redness/swelling at site. Pressure kd3 dressing applied. Administered Medications: No medications were administered Medication: 09:00 VIS not applicable for this client. kd3 Outcome: 10:52 Discharge ordered by . rt 11:14 Discharged to home ambulatory, kd3 11:14 Condition: stable 11:14 Discharge instructions given to patient, family, Instructed on discharge instructions, follow up and referral plans. medication usage, Demonstrated understanding of instructions, follow-up care, medications, Prescriptions given X 1, 11:14 Patient left the ED. kd3 Signatures: Dispatcher [employer] Jimmy Faulkner RN RN jl7 Machelle Simmons RN RN kd3 Elton Agauyo MD MD rt
[2023-07-04 11:21] VITALS: TEMP 98.1; O2SAT 98
[2023-07-04 11:23] VITALS: BP 171/95
--- NOTE | 2023-07-07 12:25 | EKG ---
Test Date: 2023-07-04 Test Time: 09:18:41 Business Analyst Project Manager: BHAVIK MEASUREMENT RESULTS: Intervals: Rate: 58 MT: 202 QRSD: 72 QT: 456 QTc: 447 [place]: P: 51 MT: 202 QRS: 77 T: 50 INTERPRETIVE STATEMENTS: Sinus bradycardia Otherwise normal ECG Compared to ECG 06/25/2023 09:45:11 Sinus rhythm no longer present Electronically Signed On 07-07-23 12:19:01 CDT by Charles Tracy
== END 2023-07-04 11:14 | disposition home or self-care (01) ==
LOC: ER 08:33
DX: J18.9 Pneumonia, unspecified organism (principal); I12.0 Hypertensive chronic kidney disease with stage 5 chronic kidney disease or end stage renal disease; N18.6 End stage renal disease; Z99.2 Dependence on renal dialysis; Z86.73 Personal history of transient ischemic attack (TIA), and cerebral infarction without residual deficits
CPT/HCPCS: 36415; 71045; 80048; 80076; 83735; 84484; 85025; 93005; 99284

== ENCOUNTER 2023-08-06 09:26 | Emergency (ER) | payer OTHER ==
--- OUTSIDE RECORDS SUMMARY | 2023-08-06 09:34 | XMS REPORT | Continuity of Care Document ---
:1965 Author Organization [facility] t Address [address] [facility] [address] [place] [id number] Care Team Providers Name Role Phone PCP, PATIENT DOES NOT HAVE A Primary Care Physician Unavailcristopher Rene MD, Janak Anderson Attending Clinician Camacho Deshpande NP Attending Clinician Cristina Avila RN Attending Clinician Unavailable Anuja Humphries Attending Clinician ASKED, NO Attending Clinician Unavailable Debbie Ochoa RN Attending Clinician Unavailable REGAN MUKHERJEE Attending Clinician Unavailable BERONICA ZHOU Attending Clinician Unavailable ROBERTO PRATT Attending Clinician Unavailable Roberto Pratt MD Attending Clinician ZULLY CHANG Attending Clinician Unavailable Zully Chang MD Attending Clinician Elidia Kat MD Attending Clinician [phone] Vtc-Lab Attending Clinician Unavailable Draw Press Operator, Transplant Attending Clinician Unavailable Worker, Transplant Social Attending Clinician Unavailable Chase MORA, Owen Attending Clinician Renal, Transplant Class Attending Clinician Unavailable DR ELIUD MAY Attending Clinician Unavailable DR PAUL BARFIELD Attending Clinician Unavailable ROBERTO PRATT Admitting Clinician Unavailable DR ELIUD MAY Admitting Clinician Unavailable DR PAUL BARFIELD Admitting Clinician Unavailable Payers Payer Name Policy Type Policy Number Effective Date Expiration Date S isidro [employer] MEDICARE [id number] 2018 ADVANTAGE HMO 00:00:00 [employer] GOLD PLS [id number] 2018 HMO 00:00:00 Problems Condition Condition Condition Status Onset Resolution Last Treating Co mments Source Name Details Category Date Date Treatment Clinician Date ESRD (end ESRD (end Disease Active Met hodi stage stage 8 st renal renal 00:00: Hospita disease) disease) 00 l No known No known Disease Unive rs active active ity of problems problems [facility] Allergies, Adverse Reactions, Alerts Allergy Allergy Status Severity Reaction(s) Onset Inactive Treating Comm ents Source Name Type Date Date Clinician Shellfis Propensi Active Anaphylaxis M ethodi h ty to 8 st Derived adverse 00:00: Hospita reaction 00 l s to drug Shellfis Propensi Active Rash No Univer s h ty to 03-27 allergy ity of Derived adverse 00:00: to iodine [place] reaction 00 per Medical s patient Branch SHELLFIS DRUG Active Rash Univers H INGREDI 03-27 ity of DERIVED 00:00: [address] Social History Social Habit Start Date Stop Date Quantity Comments Source [facility] of tobacco Current [facility] Tobacco use and 2023-05-15 2023-05-15 Smokeless [facility] exposure 00:00:00 00:00:00 tobacco non-user Hospital History of Social 2023-05-15 2023-05-[address] function 00:00:00 00:00:00 Hospital Exposure to 2022-11-22 2022-12-02 Not sure University SARS-CoV-2 (event) 00:00:00 11:38:00 [facility] Sex Assigned At [birth year] [facility] 00:[facility]00 Hospital Smoking Status Start Date Stop Date Source Tobacco smoking [facility] consumption unknown Medical Bran [facility] Ex-smoker 2023-05-15 00:00:00 2023-05-15 [facility] Medications Ordered Filled Start Stop Current Ordering Indication Dosage Frequency Signature Comments Components Source Medication Medication Date Date Medication? Clinician (SIG) Name Name metoprolol 2023-0 Yes 50mg QD Take 1 Metho di succinate 8-17 tablet (50 st XL 09:59: mg total) Hospita (TOPROL-XL) 09 by mouth l 50 mg 24 hr daily. tablet esomeprazol 0 Yes 20mg QD Take 1 Meth jim e (NexIUM) 8-[address] 20 MG 09:59: (20 mg Hospita capsule 09 total) by l mouth daily before breakfast. sevelamer 0 Yes 800mg Q.[id number] Take 1 [facility] (RENAGEL) 8-[id number] 800 MG 09:59: 3D (800 mg Hospita tablet 09 total) by l mouth 3 (three) times a day with meals. sevelamer 0 Yes 800mg Take 800 Uni vers carbonate 6-29 mg by ity of (RENVELA 09:45: mouth. [place] ORAL) [address] [place] [address] metoprolol 0 Yes Take by [facility] [place] [facility] ers succinate 6-29 mouth. ity of 25 mg CSpX 09:45: [address] sevelamer 0 Yes 800mg Take 800 Uni vers carbonate 6-29 mg by ity of (RENVELA 09:45: mouth. [place] ORAL) [address] [place] [address] metoprolol 0 Yes Take by [facility] [place] [facility] ers succinate 6-29 mouth. ity of 25 mg CSpX 09:45: [address] Vital Signs Vital Name Observation Time Observation Value Comments Source Systolic blood 2022-12-02 159 mm[Hg] [facility] pressure 22:30:00 [facility] Diastolic blood 2022-12-02 99 mm[Hg] [place] [facility] pressure 22:30:00 [facility] Heart rate 2022-12-02 78 /min [facility] 22:30:00 [facility] Respiratory rate 2022-12-02 18 /min [facility] 22:30:00 [facility] Oxygen saturation 2022-12-02 100 /min [facility] in Arterial blood 22:30:00 [facility] by Pulse oximetry [place] Body temperature 2022-12-02 36.33 Brittany [facility] 17:38:00 [facility] Body height 2022-12-02 170.2 cm [facility] 17:38:00 [facility] Body weight 2022-12-02 92.987 kg [facility] 17:38:00 [facility] BMI 2022-12-02 32.11 kg/m2 [facility] 17:38:00 [facility] Systolic blood 2023-07-22 167 mm[Hg] pt stated that [facility] pressure 12:22:00 he took his bp Hospital meds at 3 am and he was not fasting this morning Diastolic blood 2023-07-22 99 mm[Hg] pt stated that [facility] pressure 12:22:00 he took his bp Hospital meds at 3 am and he was not fasting this morning Heart rate 2023-07-22 69 /min [facility] 12:20:00 [facility] Body temperature 2023-07-22 37.06 Brittany [facility] 12:19:00 Hospital Respiratory rate 2023-07-22 18 /min [facility] 12:19:00 Hospital Body height 2023-07-22 170.2 cm pt had shoes on [facility] 12[facility] weight 2023-07-22 83.598 kg [facility] 12:19:00 [facility] BMI 2023-07-22 28.87 kg/m2 [facility] 12:19:00 Hospital Oxygen saturation 2023-07-22 98 /min [facility] in Arterial blood 12:19:00 Hospital by Pulse oximetry Procedures Procedure Date / Time Performing Clinician Source Performed URINE CULTURE 2023-07-22 17:02:00 [facility] nicky Anderson COMPREHENSIVE METABOLIC 2023-07-22 17:02:00 [facility] PANEL Justin URINALYSIS SCREEN AND 2023-07-22 17:02:00 [facility] MICROSCOPY, WITH REFLEX TO Justin DAUGHERTY HIV 1/2 ANTIGEN/ANTIBODY, 2023-07-22 17:02:00 [facility] FOURTH GENERATION, WITH Justin REFLEXES HEPATITIS A ANTIBODY TOTAL 2023-07-22 17:02:00 [facility] HEPATITIS B CORE ANTIBODY 2023-07-22 17:02:00 [facility] TOTAL Justin HEPATITIS B SURFACE 2023-07-22 17:02:00 [facility] ANTIBODY Justin HEPATITIS B SURFACE 2023-07-22 17:02:00 [facility] ANTIGEN Justin HEPATITIS B SURFACE AB, 2023-07-22 17:02:00 [facility] QUANTITATIVE Justin HEPATITIS C ANTIBODY 2023-07-22 17:02:00 [facility], [facility] Justin SYPHILIS TREPONEMA SCREEN 2023-07-22 17:02:00 [facility], [facility] WITH RPR CONFIRMATION Justin (REVERSE ALGORITHM) CBC WITH PLATELET AND 2023-07-22 17:02:00 [facility], [facility] DIFFERENTIAL Justin PROTHROMBIN TIME WITH INR 2023-07-22 17:02:00 [facility], [facility] Justin PARTIAL THROMBOPLASTIN 2023-07-22 17:02:00 [facility], [facility] TIME (PTT) Justin ABORH - TRANSPLANT 2023-07-22 17:02:00 [facility], [facility] Justin DRUG CHAVEZ 9, SER/AMINTA, SCRN 2023-07-22 17:02:00 [facility], [facility] W/RFLX TO CONF Justin NICOTINE AND COTININE, 2023-07-22 17:02:00 [facility], [facility] SERUM Justin TB T-SPOT 2023-07-22 17:02:00 [facility] C-PEPTIDE 2023-07-22 17:02:00 Rene, [facility]ak [facility] Anderson SERUM ELECTROPHORESIS 2023-07-22 17:02:00 [facility], [facility] Justin PROSTATE SPECIFIC ANTIGEN 2023-07-22 17:02:00 [facility], [facility] Justin ESTIMATED GFR 2023-07-22 17:02[facility] HEPAT[facility]IS C VIRUS (HCV), 2023-07-22 17:02:00 [facility], [facility] QUALITATIVE Justin US DUPLEX VENOUS ARM LEFT 2022-12-02 18:57:00 Roberto Pratt [facility] - BY VASCULAR LAB Medical Branch COMP. METABOLIC PANEL 2022-12-02 18:34:00 Roberto Pratt [facility] ([id number]) [facility] Branch CBC WITH DIFF 2022-12-02 18:34:00 Roberto Pratt o f [facility] PROTHROMBIN TIME / INR 2022-12-02 18:34:00 Roberto Pratt [facility] ACTIVATED PARTIAL THRMPLAS 2022-12-02 18:34:[address] [facility] Plan of Care Planned Activity Planned Date Details Comments Source Future Scheduled 2023-08-06 [facility] Test 08:46:09 malignant neoplasm of colon (procedure) [code = 442549124] Future Scheduled 2023-08-06 [facility] Test 08:46:09 malignant neoplasm of colon (procedure) [code = 182236378] Future Scheduled 2023-08-06 [facility] Test 08:46:09 malignant neoplasm of colon (procedure) [code = 986408235] Future Scheduled 2023-08-06 COVID-19 [facility]ACCINE [facility] 08:46:09 [code = COVID-19 VACCINE (#1)] Future Scheduled 2023-08-06 Pneumococcal Vaccine: [facility] Test 08:46:09 Pediatrics (0 to 5 Years) and At-Risk Patients (6 to 64 Years) (1 - PCV) [code = Pneumococcal Vaccine: Pediatrics (0 to 5 Years) and At-Risk Patients (6 to 64 Years) (1 - PCV)] Future Scheduled 2023-08-06 [facility] Test 08:46:09 malignant neoplasm of colon (procedure) [code = 773135805] Future Scheduled 2023-08-06 [facility] Test 08:46:09 malignant neoplasm of colon (procedure) [code = 306942679] Future Scheduled 2023-08-06 SHINGLES VACCINES (1 [facility] Test 08:46:09 of 2) [code = SHINGLES VACCINES (1 of 2)] Future Scheduled 2023-08-06 [facility] 08:46:09 [code = INFLUENZA VACCINE (#1)] Encounters Start End Encounter Admission Attending Care Care Encounter Source Date/Time Date/Time Type Type Clinicians Facility Department ID 2022-12-11 Outpatient [facility] [id number] [place] 07:29:56 [id number] [facility] 2022-12-06 Outpatient [facility] [id number] [place] 09:33:25 [id number] [facility] 2022-12-03 Outpatient [facility] [id number] [place] 14:02:55 [id number] [facility] 2023-07-22 2023-07-31 Office Janak Rene 1.2.840.1 [id number] [facility] 11:30:00 12:53:04 Visit Camacho Deshpande 79851.1.[address] 3.430.2.7 Hospit a .3.767739 l .8 2023-07-23 2023-07-23 Telephone [place] 1.2.840.1 [id number] [facility] 00:00:00 00:00:[address] 3.430.2.7 Hospit a .3.601340 l .8 2023-07-22 2023-07-22 Office Kristel, 1.2.840.1 [id number] [facility] 09:45:00 10:00:00 Visit Anuja [address]474.1.[address] 3.430.2.7 Hospit a .3.960141 l .8 2023-07-22 2023-07-22 Outpatient ASKED, NO [facility] [id number] [place] 00:00:00 00:00:[address] 2023-07-22 2023-07-22 Outpatient KRISTEL, [facility] [id number] [place] 00:00:00 00:00:00 ANUJA [address] 2023-07-22 2023-07-22 Outpatient BLU, [facility] [id number] [place] 00:00:00 00:00:00 JANAK [address] 2023-07-22 2023-07-22 Outpatient RENE, [facility] [id number] [place] 00:00:00 00:00:00 JANAK [address] 2023-05-07 2023-05-07 Telephone Don, 1.2.840.1 [id number] [facility] 00:00:00 00:00:[address] 3.430.2.7 Hospit a .3.955358 l .8 2022-12-11 2022-12-11 Outpatient [facility] [id number] [place] 13:30:00 13:30:00 [facility] 2022-12-09 2022-12-09 Outpatient [facility] [id number] [place] 14:30:00 14:30:00 [facility] 2022-12-06 2022-12-06 Outpatient ABELARDO, [facility] [id number] [place] 09:30:00 09:30:00 [facility] 2022-12-03 2022-12-03 Outpatient ABELARDO, [facility] [id number] [place] 11:30:00 11:30:00 [facility] 2022-12-02 2022-12-02 Emergency X [facility] ERT [id number] Univers 11:37:00 16:41:00 ROBERTO [facility] 2022-12-02 2022-12-02 [facility] [id number] [id number] Univers 11:37:00 16:41:00 Roberto VALENTINO 350.1.13.10 i ty of [place] 4.2.7.2.686 [facility] [id number] [place] [id number] Branch 2022-04-19 2022-04-19 [address] [facility] [id number] Univers 09:00:00 09:00:00 ANDREA ity o f [facility] 2022-04-10 2022-04-10 Telephone [facility] 1.2.840.114 [id number] Univers 00:00:00 00:00:00 Zully Bojorquez MULTISPEC 350.1.13.10 ity of IALTY 4.2.7.2.686 [facility] [id number] [facility] [address] [place] [facility] 2022-04-10 2022-04-10 Telephone [facility] 1.2.840.114 [id number] Univers 00:00:00 00:00:00 Andrea A MULTISPEC 350.1.13.10 ity of IALTY 4.2.7.2.686 [facility] [id number] [facility] [address] [place] [facility] 2022-04-08 2022-04-08 Committee Luciano [facility] 1.2.840.114 [id number] Univers 00:00:00 00:00:00 Elidia Connolly do MULTISPEC 350.1.13.10 ity of IALTY 4.2.7.2.686 [facility] [place] [id number] [address] [facility] 2022-03-27 2022-03-27 Studio Data Analyst Vtc-Lab [facility] 1.2.840.114 [id number] Univers 13:00:00 13:15:00 Visit Charlene Andrea Cristopher MULTISPEC 350.1.13 .10 ity of IALTY 4.2.7.2.686 [facility] [place] [id number] [facility] [address] [place] [facility] 2022-03-27 2022-03-27 Outpatient [facility] [id number] Univers 13:00:00 13:00:00 ANDREA ity o faviola [facility] 2022-03-27 2022-03-27 Outpatient R CHARLENE, [facility] [id number] Univers 13:00:00 13:00:00 ANDREA ity o faviola [facility] 2022-03-27 2022-03-27 Draw Press Operator Draw Press Operator, Transplant [facility] 1. 2.840.114 [id number] Univers 12:00:00 12:00:00 Visit Zully Chang MULTISPEC 350.1.13 .10 ity of IALTY 4.2.7.2.686 [facility] s [place] [id number] [address] [facility] 2022-03-27 2022-03-27 Dry Roaster, Transplant Social [facility] 1.2.840.114 [id number] Univers 11:00:00 11:58:21 Management Zully Chang MULTISPEC 350.1 .13.10 ity of IALTY 4.2.7.2.686 [facility] [place] [id number] [address] [facility] 2022-03-27 2022-03-27 Office Owen Stone [facility] 1.2.840.114 [id number] Univers 10:00:00 11:58:04 Visit Zully Chang MULTISPEC 350.1.13 .10 ity of IALTY 4.2.7.2.686 [facility] [id number] [facility] [address] [place] [facility] 2022-03-27 2022-03-27 Nurse Renal, Transplant Class [facility] 1. 2.840.114 [id number] [facility] 08:30:00 09:15:00 Visit Zully Chang MULTISPEC 350.1.13 .10 ity of IALTY 4.2.7.2.686 [facility] [id number] [facility] [address] [place] [facility] 2019-08-11 2019-08-11 Emergency E ELIUD MAY [facility] [id number] [place] 07:59:00 09:20:00 Medica l Center 2018-03-03 2018-03-04 Outpatient E LICO [facility] TELE [id number] [place] 15:47:00 12:01:00 PAUL [facility] al Center Results Test Description Test Time Test Comments Results Result Comments Source COMP. METABOLIC PANEL (24712) 2022-12-02 19:34:37 Test Item Value Reference Range Interpretation Comme nts NA (test code = 2400348054) 136 mmol/L 135-145 K (test code = 5377599882) 4.6 mmol/L 3.5-5.0 CL (test code = 6735573456) 101 mmol/L 98-108 CO2 TOTAL (test code = 8665875541) 25 mmol/L 23-31 AGAP (test code = 2088200897) 10 2-16 BUN (test code = 9916390891) 33 mg/dL 7-23 H GLUCOSE (test code = 9321281848) 83 mg/dL 70-110 CREATININE (test code = 8.36 mg/dL 0.60-1.25 H 6060428107) TOTAL BILI (test code = 0.6 mg/dL 0.1-1.8 5045351983) CALCIUM (test code = 4299486259) 8.2 mg/dL 8.6-10.6 L T PROTEIN (test code = 2443796932) 7.7 g/dL 6.3-8.2 ALBUMIN (test code = 0438197807) 4.3 g/dL 3.5-5.0 ALK PHOS (test code = 7242268495) 80 U/L 34-122 ALTv (test code = 1742-6) 12 U/L 5-50 AST(SGOT) (test code = 5610460013) 16 U/L 13-40 eGFR (test code = 5440549540) 6.6 mL/min/1.73m2 FILI (test code = FILI) Association of Glomerular Filtration Rate (GFR) and Staging of Kidney Disease* + +-------- + ------+| GFR (mL/min/1.73 m2) ?| With Kidney Damage ?| ?Without Kidney Damage+ +-- + +| ?>90 ?| ?Stage one ?| ? Normal ?+ +------- + -------+| ?60-89 ?| ?Stage two ?| ? Decreased GFR ? + +-------- + ------+| ?30-59 ?| ?Stage three ?| ? Stage three ? + +-------- + ------+| ?15-29 ?| ?Stage four ? | ? Stage four ?+ +------- + -------+| ?<15 (or dialysis) ? ?| ?Stage five ? | ? Stage five ?+ +------- + -------+ *Each stage assumes the associated GFR [...] or abnormalities in imaging tests). Lab Interpretation (test code = Abnormal 08864-3) [facility] [id number] 19:16:11 Test Item Value Reference Range Interpretation Comments APTT Patient (test 28 See_Comment [Automat ed code = 3173-2) message] The system which generated this result transmitted reference range : 23 - 38 Seconds . The reference range was not used to interpr et this result as normal/abnormal . FILI (test code = FILI) The [facility] patient population mean normal value for aPTT is 30 seconds. Lab Interpretation Normal (test code = 21908-1) [facility] / [id number] 19:14:13 Test Item Value Reference Range Interpretation [...] tions. Lab Interpretation (test Normal code = 89477-0) [facility] WITH [id number] 19:07:14 Test Item Value Reference Range Interpretation Comments WBC (test code = 7.95 See_Comment [Automated 7490-2) message] The sy stem which generated this [...] RDW-SD (test code = 50.5 fL 38.5-51.6 24566-7) RDW-CV (test code = 13.7 % 12.1-15.4 788-0) PLT (test code = 218 See_Comment [Automated 777-3) message] The sy stem which generated this result transmitted reference range : 150 - 328 10*3/ ?L. The reference r jillian was not used to interpret this result as normal/abnormal . MPV (test code = 10.1 fL 9.8-13.0 20791-2) NRBC/100 WBC (test 0.0 See_Comment [Automat ed code = 2539958661) message] The system which generated this result transmitted reference range : 0.0 - 10.0 /100 WBCs. The refer ence range was not u sed to interpret th is result as normal/abnormal . NRBC x10^3 (test code See_Comment [Auto mated = 7022435404) message] The s ystem which generated this result transmitted reference range : 10*3/?L. The reference range was not used to interpret this result as normal/abnormal . GRAN MAT (NEUT) % 69.1 % (test code = 770-8) IMM GRAN % (test code 0.40 % = 5055204642) LYMPH % (test code = 20.0 % 736-9) MONO % (test code = 7.8 % 5905-5) EOS % (test code = 1.9 % 713-8) BASO % (test code = 0.8 % 706-2) GRAN MAT x10^3(ANC) 5.50 10*3/uL 1.99-6.95 (test code = 3832463051) IMM GRAN x10^3 (test 0.03 10*3/uL 0.00-0.06 code = 2511331486) LYMPH x10^3 (test code 1.59 10*3/uL 1.09-3.23 = 731-0) MONO x10^3 (test code 0.62 10*3/uL 0.36-1.02 = 742-7) EOS x10^3 (test code = 0.15 10*3/uL 0.06-0.53 711-2) BASO x10^3 (test code 0.06 10*3/uL 0.01-0.09 = 704-7) Lab Interpretation Abnormal (test code = 32179-3) [facility] [id number] 08:55:00 Test Item Value Reference Range Interpretation Comments proBNP (test code = PBNP) 750 pg/mL 0-125 H COMPREHENSIVE METABOLIC [id number] 08:55:00 Test Item Value Reference Range Interpretation [...] (test code = 31A) 15 IU/L <=78 [id number] 08:55:00 Test Item Value Reference Range Interpretation Comments MAGNESIUM (test code = 48A) 2.6 mg/dL 1.8-2.4 H PHOSPHORUS (P04)2019-08-11 08:55:00 Test Item Value Reference Range Interpretation Comments PHOSPHORUS (test code = 43D) 7.8 mg/dL 2.7-4.6 H TROPONIN [id number] 08:50:00 Test Item Value Reference Range Interpretation Comments TROPONIN I (test code = A84) <0.015 ng/mL 0.000-0.045 PRO TIME AND [id number] 08:43:00 Test Item Value Reference Range Interpretation [...] Order Code is ANTI-XA CT HEAD W/O [id number] 08:36:37CT brain without contrastLocation code: M1GNTSNOGY HISTORY: Dizziness COMPARISON: 03/03/18TECHNIQUE:Routine unenhanced axial imaging [...] = RBCMOR) NORMAL XR CHEST 1 VIEW [id number] 08:28:57Portable AP chest, 1 viewLocation Code: Z0LZYQEAVK HISTORY: DizzinessCOMPARISON: 03/03/18COMMENT: The lungs are clear and well inflated. The costophrenic angles are sharp. Thecardiomediastinal silhouette is unremarkable. The bones are intact.IMPRESSION: Stable chest with no acute abnormalityURINALYSIS WITH [id number] 06:31:00 Test Item Value Reference Range Interpretation [...] code = USPERM) /HPF NONE BASIC METABOLIC [id number] 04:20:00 Test Item Value Reference Range Interpretation [...] = 09D) 7.8 mg/dL 8.3-9.5 L CARDIAC [id number] 04:14:00 Test Item Value Reference Range Interpretation [...] MORPH (test code = RBCMOR) NORMAL CARDIAC [id number] 21:34:00 Test Item Value Reference Range Interpretation Comments TROPONIN I (test code = A84) <0.015 ng/mL 0.000-0.045 CKMB (test code = A49) 1.3 ng/mL <=3.6 CPK (test code = 32A) 50 IU/L 39-308 U/S CAROTID COLOR DOPPLER [id number] 21:13:04Examination: Bilateral carotid Doppler ultrasoundLocation code: W0Jqdecggwmn: NoneTechnique:Clinicalhistory is remarkable for dizziness, giddiness. Real-time [...] present, no hemodynamicallysignificant stenosis identified.CT HEAD W/O [id number] 14:56:12CT Brain without contrast.Location code:Y5BRRBZZIH HISTORY: [id number]: Chest painComparison: NoneTechnique: Routine unenhanced CT brain [...] acuteintracranial abnormality. Old right thalamic infarct.AMYLASE AND [id number] 14:42:00 Test Item Value Reference Range Interpretation Comments AMYLASE (test code = 10A) 68 U/L 28-100 LIPASE (test code = 60A) 130 IU/L 73-393 COMPREHENSIVE METABOLIC [id number] 14:42:00 Test Item Value Reference Range Interpretation [...] 31A) 23 IU/L <=78 PRO TIME AND [id number] 14:41:00 Test Item Value Reference Range Interpretation [...] Code is ANTI-XA XR CHEST 1 VIEW [id number] 14:38:47EXAMINATION: XR CHEST 1 VIEW PORTABLE.LOCATION: D4.HISTORY: Chest pain, dizziness.COMPARISON: None.FI NDINGS:Examination is limited due to portable technique, patient body habitus and lowlung volumes.Cardiac silhouette/Mediastinal contour: Prominence of cardiac silhouette. Lungs: No focal consolidation. No large pleural effusion. Pulmonary vascularcongestion.Osseous Structures: Mild degenerative changes of thoracic spine.IMPRESSION: Limited study, pulmonary vascular congestion.DRUGS OF [id number] 14:36:00 Test Item Value Reference Range Interpretation [...] NO RBC MORPH (test code = RBCMOR) NORMAL"
--- NOTE | 2023-08-06 10:22 | RAD REPORT ---
EXAM DESCRIPTION: RADChest Single View08/06/2023 9:55 am CLINICAL HISTORY: DYSPNEA COMPARISON: Chest Single View dated 07/04/2023; Chest Single View dated 06/25/2023; Chest Single View dated 05/28/2023; Chest Single View dated 05/10/2023 TECHNIQUE: Portable AP view of the chest. FINDINGS: Stable central interstitial prominence and trace right effusion. Vascular stent again seen along the left subclavian vessels. No pneumothorax or sizable effusion. The cardiomediastinal conto urs are unremarkable. IMPRESSION: Stable findings as above.
[2023-08-06 10:25] LABS: Absolute Lymphocytes (CBC) 1.1 K/uL (0.7-4.9); Hematocrit 37.1 % (39.6-49.0); Lymphocytes % 21.6 % (15.3-44.8); MCV 97.2 fL (80-100); MPV 8.1 fL (7.6-11.3); Platelets 195 thou/uL (152-406); RBC Red Blood Cell Count 3.82 M/uL (4.33-5.43)
[2023-08-06 11:01] LABS: Magnesium 2.3 mg/dL (1.6-2.4); Potassium 4.2 mEq/L (3.5-5.1); Troponin High Sensitivity 14.8 pg/mL (<58.9)
--- NOTE | 2023-08-06 11:19 | ER ---
Nurse's Notes [facility] Name: Ben Otto Age: 58 yrs Sex: Male : 1965 Arrival Date: 08/06/2023 Time: 09:26 Bed 4 Private MD: Diagnosis: Heart failure, unspecified;Shortness of breath Presentation: 08/06 09:31 Chief complaint: EMS states: SOB x months, chest pressure today. Last HD was yesterday. hb Coronavirus screen: Client presents with at least one sign or symptom that may indicate coronavirus-19. Provider contacted for isolation considerations. Ebola Screen: No symptoms or risks identified at this time. Initial Sepsis Screen: Does the patient meet any 2 criteria? No. Patient's initial sepsis screen is negative. Does the patient have a suspected source of infection? No. Patient's initial sepsis screen is negative. Risk Assessment: Do you want to hurt yourself or someone else? Patient reports no desire to harm self or others. Onset of symptoms was August 06, 2023. 09:31 Method Of Arrival: EMS: [facility] 09:31 Acuity: JEREMY 3 hb Historical: - Allergies: 09:43 No Known Allergies; hb - PMHx: 09:43 CVA; left sided weakness; Dialysis; Hypertensive disorder; hb - Immunization history:: Adult Immunizations up to date. - Social history:: Smoking status: . Screenin:30 [facility] ED Fall Risk Assessment (Adult) History of falling in the last 3 months, ph including since admission No falls in past 3 months (0 pts) Confusion or Disorientation No (0 pts) Intoxicated or Sedated No (0 pts) Impaired Gait Yes (1 pt) Mobility Assist Device Used Yes (1 pt) Altered Elimination No (0 pt) Score/Fall Risk Level 3 or more points = High Risk Oriented to surroundings, Maintained a safe environment, Provided non-skid footwear, Hourly rounding (assess needs \T\ fall precautionary measures) done. Abuse screen: Denies threats or abuse. Denies injuries from another. Nutritional screening: No deficits noted. Tuberculosis screening: No symptoms or risk factors identified. Assessment: 10:30 General: Appears in no apparent distress. comfortable, Behavior is calm, cooperative, ph appropriate for age. Pain: Denies pain. Neuro: Level of Consciousness is awake, alert, obeys commands, Oriented to person, place, time, situation. Cardiovascular: Reports shortness of breath, Capillary refill < 3 seconds in bilateral fingers Patient's skin is warm and dry. Respiratory: Reports shortness of breath Denies cough. Vital Signs: 09:31 BP 188 / 94; Pulse 63; Resp 20; Temp 98.5(O); Pulse Ox 100% on R/A; Weight 81.65 kg; hb Height 5 ft. 7 in. ; Pain 5/10; 10:30 BP 169 / 98; Pulse 64; Resp 18; Temp 98; Pulse Ox 99% on R/A; ph 12:07 BP 173 / 96; Pulse 61; Resp 18; Pulse Ox 98% on R/A; ph 09:31 Body Mass Index 28.19 (81.65 kg, 170.18 cm) hb 09:31 Pain Scale: Adult hb ED Course: 09:29 Patient arrived in ED. ms3 09:29 Jaxson Alba DO is Attending Physician. ms3 09:43 Triage completed. hb 09:44 Arm band placed on. hb 09:57 XRAY Chest (1 view) In Process Unspecified. EDMS 10:16 Inserted saline lock: 20 gauge in right antecubital area, using aseptic technique. hb Blood collected. 10:30 Patient has correct armband on for positive identification. Client placed on continuous ph cardiac and pulse oximetry monitoring. NIBP monitoring applied. 11:18 Charles Tracy MD is Referral Physician. ms3 11:38 Cristal Judd, JOBY is Primary Nurse. ph 12:07 No provider procedures requiring assistance completed. IV discontinued, intact, ph bleeding controlled, No redness/swelling at site. Pressure dressing applied. Administered Medications: No medications were administered Medication: 12:05 VIS not applicable for this client. ph Outcome: 11:18 Discharge ordered by . ms3 12:07 Discharged to home ambulatory, ph 12:07 Condition: good 12:07 Discharge instructions given to patient, Instructed on discharge instructions, follow up and referral plans. Demonstrated understanding of instructions, follow-up care, 12:08 Patient left the ED. ph Signatures: Dispatcher [employer] EDKS Cristal Judd RN RN Danica Martínez RN RN Jaxson Alba DO DO ms3
--- NOTE | 2023-08-06 11:19 | EDPHYS ---
Physician Documentation [facility] Name: Ben Otto Age: 58 yrs Sex: Male : 1965 Arrival Date: 08/06/2023 Time: 09:26 Bed 4 Private MD: ED Physician Jaxson Alba HPI: 08/06 09:31 This 58 yrs old Male presents to ER via Unassigned with complaints of ms3 shortness of breath. 09:31 58-year-old male with past medical history of hypertension, end-stage renal disease, ms3 CVA in 2013 with left-sided deficits presents to the emergency department via [facility] for shortness of breath that is worse with walking and laying flat. Patient states that shortness of breath has been ongoing for months. Patient states he is having 5/10 chest pain with breathing. Patient denies nausea, vomiting. Patient states his last dialysis was on Friday.. Historical: - Allergies: 09:43 No Known Allergies; hb - PMHx: :43 CVA; left sided weakness; Dialysis; Hypertensive disorder; hb - Immunization history:: Adult Immunizations up to date. - Social history:: Smoking status: . ROS: 09:31 Constitutional: Negative for fever, and chills. ENT: Negative for injury, pain, and ms3 discharge, Neck: Negative for injury, pain, and swelling, 09:31 Abdomen/GI: Negative for abdominal pain, nausea, vomiting, diarrhea, and constipation, 09:31 Cardiovascular: Positive for Chest pain with breathing, 09:31 Respiratory: Positive for dyspnea on exertion, orthopnea, 09:31 All other systems are negative, Exam: 09:31 Constitutional: This is a well developed, well nourished patient who is awake, alert, ms3 and in no acute distress. Neck: Trachea midline, no cervical lymphadenopathy. Supple, full range of motion without nuchal rigidity, or vertebral point tenderness. No Meningismus. Chest/axilla: Normal chest wall appearance and motion. Nontender with no deformity. Cardiovascular: Regular rate and rhythm with a normal S1 and S2. No gallops, murmurs, or rubs. Normal PMI, no JVD. No pulse deficits. Respiratory: Lungs have equal breath sounds bilaterally, clear to auscultation and percussion. No rales, rhonchi or wheezes noted. No increased work of breathing, no retractions or nasal flaring. Abdomen/GI: Soft, non-tender, with normal bowel sounds. No distension or tympany. No guarding or rebound. No evidence of tenderness throughout. Skin: Warm, dry with normal turgor. Normal color with no rashes, no lesions, and no evidence of cellulitis. 11:36 ECG was reviewed by the Attending Physician. ms3 Vital Signs: 09:31 BP 188 / 94; Pulse 63; Resp 20; Temp 98.5(O); Pulse Ox 100% on R/A; Weight 81.65 kg; hb Height 5 ft. 7 in. ; Pain 5/10; 10:30 BP 169 / 98; Pulse 64; Resp 18; Temp 98; Pulse Ox 99% on R/A; ph 12:07 BP 173 / 96; Pulse 61; Resp 18; Pulse Ox 98% on R/A; ph 09:31 Body Mass Index 28.19 (81.65 kg, 170.18 cm) hb 09:31 Pain Scale: Adult hb MDM: 09:29 Patient medically screened. ms3 09:31 Differential diagnosis: Anemia CHF exacerbation, Myocardial Infarction pneumonia, ms3 pulmonary edema. 11:36 Data reviewed: vital signs, nurses notes, lab test result(s), EKG, radiologic studies, ms3 and as a result, I will discharge patient. Consideration of Admission/Observation Escalation of care including admission/observation considered. Management of patient was discussed with the following: Director Of Tax Services: Dr Tracy- can follow up in clinic. Independent interpretation of the following test(s) in the Emergency Department EKG: See my EKG interpretation above X-Ray: My interpretation is CXR image reviewed by me does not reveal pna. Care significantly affected by the following chronic conditions: Hypertension, ESRD. Counseling: I had a detailed discussion with the patient and/or guardian regarding the historical points, exam findings, and any diagnostic results supporting the discharge/admit diagnosis, lab results, radiology results, the need for outpatient follow up, to return to the emergency department if symptoms worsen or persist or if there are any questions or concerns that arise at home. ED course: Discussed labs, EKG, chest x-ray with patient. Patient to follow-up Dr. Tracy in 1 to 2 days. Patient understands and agrees with plan. All questions were answered. Return precautions discussed include worsening symptoms, or any other concerns. On reevaluation patient is alert and oriented x4, no apparent distress, nontoxic-appearing, ambulatory in emergency room, speaking full sentences. 08/06 09:31 Order name: Basic Metabolic Panel; Complete Time: 11:02 ms3 08/06 09:31 Order name: CBC with Diff; Complete Time: 10:45 ms3 08/06 09:31 Order name: Magnesium; Complete Time: 11:02 ms3 08/06 09:31 Order name: NT PRO-BNP; Complete Time: 11:02 ms3 08/06 09:31 Order name: Troponin HS; Complete Time: 11:02 ms3 08/06 09:31 Order name: XRAY Chest (1 view); Complete Time: 10:45 ms3 08/06 09:31 Order name: EKG; Complete Time: 09:32 ms3 08/06 09:31 Order name: Cardiac monitoring; Complete Time: 09:52 ms3 08/06 09:31 Order name: EKG - Nurse/Tech; Complete Time: 09:52 ms3 08/06 09:31 Order name: IV Saline Lock; Complete Time: 10:16 ms3 08/06 09:31 Order name: Labs collected and sent; Complete Time: 10:16 ms3 08/06 09:31 Order name: O2 Per Protocol; Complete Time: 09:52 ms3 08/06 09:31 Order name: O2 Sat Monitoring; Complete Time: 09:52 ms3 EC:36 Rate is 59 beats/min. Rhythm is regular. QRS [place] is Normal. MT interval is normal. QRS ms3 interval is normal. Clinical impression: Sinus bradycardia. Interpreted by me. Reviewed by me. Administered Medications: No medications were administered Disposition Summary: 08/06/23 11:18 Discharge Ordered Notes: Location: Home ms3 Condition: Stable ms3 Diagnosis - Heart failure, unspecified ms3 - Shortness of breath ms3 Followup: ms3 - With: Charles Tracy MD - When: 1 - 2 days - Reason: Recheck today's complaints Forms: - Medication Reconciliation Form ms3 - Thank You Letter ms3 - Antibiotic Education ms3 - Prescription Opioid Use ms3 - Patient Portal Instructions ms3 - Leadership Thank You Letter ms3 Signatures: Dispatcher [employer] Danica Hough RN RN [facility], Jaxson, DO DO ms3
[2023-08-06 12:31] VITALS: TEMP 98
[2023-08-06 12:33] VITALS: BP 173/96; O2SAT 98
--- NOTE | 2023-08-09 14:22 | EKG ---
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
== END 2023-08-06 12:08 | disposition home or self-care (01) ==
LOC: ER 09:26
DX: I50.9 Heart failure, unspecified (principal); I10 Essential (primary) hypertension; I12.0 Hypertensive chronic kidney disease with stage 5 chronic kidney disease or end stage renal disease; N18.6 End stage renal disease; Z99.2 Dependence on renal dialysis
CPT/HCPCS: 36415; 71045; 80048; 83735; 83880; 84484; 85025; 93005; 99284

== ENCOUNTER → 2023-10-22 | Emergency (ER) | payer OTHER ==
[~2023-10-22] MED LIST: MAGNESIUM SULFATE 1 gm IVPB 1 GM/100 ML BAG IV ONE; METOPROLOL TAR 50 MG TAB ONE; POTASSIUM CL SA 10 MEQ TAB PO ONE
--- NOTE | 2023-10-22 15:32 | RAD REPORT ---
EXAM DESCRIPTION: RAD - Chest Single View - 10/22/2023 3:21 pm CLINICAL HISTORY: CHEST PAIN Chest pain. COMPARISON: Chest Single View dated 08/06/2023; Chest Single View dated 07/04/2023; Chest Single View dated 06/25/2023; Chest Single View dated 05/28/2023 FINDINGS: Portable technique limits examination quality. The lungs are grossly clear. The heart is normal in size. No displaced fractures. IMPRESSION: No acute intrathoracic process suspected.
[2023-10-22 16:00] LABS: Absolute Lymphocytes (CBC) 1.5 K/uL (0.7-4.9); Hematocrit 42.7 % (39.6-49.0); Lymphocytes % 16.6 % (15.3-44.8); MCV 98.5 fL (80-100); MPV 8.1 fL (7.6-11.3); Platelets 242 thou/uL (152-406); Protime INR 1.09; RBC Red Blood Cell Count 4.34 M/uL (4.33-5.43)
[2023-10-22 16:12] LABS: ALT/SGPT 15 U/L (16-61); AST/SGOT 15 U/L (15-37); Albumin 3.5 g/dL (3.4-5.0); Alkaline Phosphatase 111 U/L (45-117); BUN Blood Urea Nitrogen 14 mg/dL (7-18); Bicarbonate 28 mEq/L (21-32); Bilirubin Total 0.3 mg/dL (0.2-1.0); Glomerular Filtration Rate 13 ml/min (=/>90); Glucose Level 148 mg/dL (74-106); Magnesium 2.1 mg/dL (1.6-2.4); NT PRO-BNP 4211 pg/mL (<125); Potassium 3.4 mEq/L (3.5-5.1); Protein, Total 8.5 g/dL (6.4-8.2); Sodium Level 135 mEq/L (136-145); Troponin High Sensitivity 13.2 pg/mL (<58.9)
[2023-10-22 16:14] LABS: Bilirubin Direct < 0.1 mg/dL (0-0.2); Bilirubin Indirect, Calculated ND mg/dL (0.2-0.8)
--- NOTE | 2023-10-22 16:45 | EDPHYS ---
Physician Documentation [facility] Name: Ben Otto Age: 58 yrs Sex: Male : 1965 Arrival Date: 10/22/2023 Time: 14:19 Bed 19 Private MD: ED Physician Manuel De La Cruz HPI: 10/22 15:46 This 58 yrs old Male presents to ER via EMS with complaints of Palpitations, pramod Chest Pain - fast HR. 15:46 The patient presents with a history of heart racing, heart skipping beats. Context: The pramod symptoms occur at rest. Onset: The symptoms/episode began/occurred just prior to arrival. Duration: The patient or guardian reports multiple episodes, that are intermittent, with no pattern. Modifying factors: The symptoms are aggravated by nothing. The symptoms are alleviated by nothing. Associated signs and symptoms: The patient has no apparent associated signs or symptoms. Severity of symptoms: At their worst the symptoms were mild in the emergency department the symptoms have improved mildly. The patient has experienced similar episodes in the past, several times. Historical: - Allergies: 14:21 SHELLFISH; ll1 - PMHx: 14:21 CVA; left sided weakness; Dialysis; Hypertensive disorder; Kidney disease; ll1 - Immunization history:: Adult Immunizations up to date. - Social history:: Smoking status: Patient denies any tobacco usage or history of. - Family history:: not pertinent. ROS: 15:46 Constitutional: Negative for fever, chills, and weight loss, Eyes: Negative for injury, pramod pain, redness, and discharge, ENT: Negative for injury, pain, and discharge, Neck: Negative for injury, pain, and swelling, Respiratory: Negative for shortness of breath, cough, wheezing, and pleuritic chest pain, Abdomen/GI: Negative for abdominal pain, nausea, vomiting, diarrhea, and constipation, Back: Negative for injury and pain, : Negative for injury, bleeding, discharge, and swelling, MS/Extremity: Negative for injury and deformity, Skin: Negative for injury, rash, and discoloration, Neuro: Negative for headache, weakness, numbness, tingling, and seizure, Psych: Negative for depression, anxiety, suicide ideation, homicidal ideation, and hallucinations, Allergy/Immunology: Negative for hives, rash, and allergies, Endocrine: Negative for neck swelling, polydipsia, polyuria, polyphagia, and marked weight changes, Hematologic/Lymphatic: Negative for swollen nodes, abnormal bleeding, and unusual bruising, 15:46 Cardiovascular: Positive for palpitations, Exam: 15:46 Constitutional: This is a well developed, well nourished patient who is awake, alert, pramod and in no acute distress. Head/Face: Normocephalic, atraumatic. Eyes: Pupils equal round and reactive to light, extra-ocular motions intact. Lids and lashes normal. Conjunctiva and sclera are non-icteric and not injected. Cornea within normal limits. Periorbital areas with no swelling, redness, or edema. ENT: Nares patent. No nasal discharge, no septal abnormalities noted. Tympanic membranes are normal and external auditory canals are clear. Oropharynx with no redness, swelling, or masses, exudates, or evidence of obstruction, uvula midline. Mucous membranes moist. Neck: Trachea midline, no thyromegaly or masses palpated, and no cervical lymphadenopathy. Supple, full range of motion without nuchal rigidity, or vertebral point tenderness. No Meningismus. Chest/axilla: Normal chest wall appearance and motion. Nontender with no deformity. No lesions are appreciated. Respiratory: Lungs have equal breath sounds bilaterally, clear to auscultation and percussion. No rales, rhonchi or wheezes noted. No increased work of breathing, no retractions or nasal flaring. Abdomen/GI: Soft, non-tender, with normal bowel sounds. No distension or tympany. No guarding or rebound. No evidence of tenderness throughout. Back: No spinal tenderness. No costovertebral tenderness. Full range of motion. Male : Normal genitalia with no discharge or lesions. Skin: Warm, dry with normal turgor. Normal color with no rashes, no lesions, and no evidence of cellulitis. MS/ Extremity: Pulses equal, no cyanosis. Neurovascular intact. Full, normal range of motion. Neuro: Awake and alert, GCS 15, oriented to person, place, time, and situation. Cranial nerves II-XII grossly intact. Motor strength 5/5 in all extremities. Sensory grossly intact. Cerebellar exam normal. Normal gait. Psych: Awake, alert, with orientation to person, place and time. Behavior, mood, and affect are within normal limits. 15:46 Cardiovascular: Rate: normal, Rhythm: regular, Pulses: Pulses are 4+ in bilateral radial, brachial, femoral, popliteal, posterior tibial and and dorsalis pedis arteries.. Heart sounds: normal, JVD: is noted bilaterally, to 2 cm, 15:46 Musculoskeletal/extremity: Extremities: all appear grossly normal, with no appreciated pain with palpation, ROM: no acute changes, Circulation is intact in all extremities. Sensation intact. Compartment Syndrome exam of affected extremity: is normal. Weight bearing: DVT Exam: No signs of deep vein thrombosis. no pain, no swelling, no tenderness, negative Homans' sign noted on exam, no appreciated bluish discoloration, no erythema, no increased warmth, 16:44 ECG was reviewed by the Attending Physician. [facility] Vital Signs: 15:23 BP 122 / 84; Pulse 74; Resp 16; Temp 98; Pulse Ox 100% on R/A; Pain 0/10; ll1 16:45 BP 128 / 78; Pulse 72; Resp 18; Temp 97.9; Pulse Ox 97% on R/A; ph 15:23 Pain Scale: Adult ll1 MDM: 14:26 Patient medically screened. pramod 15:49 VANDANA Risk Score: Not Applicable. 1 - 3 or more CAD risk factors, 1 - Known CAD. [facility] Differential diagnosis: arrythmia, dehydration, stress disorder. Data reviewed: vital signs, nurses notes, EMS record, lab test result(s), EKG, radiologic studies. Consideration of Admission/Observation Escalation of care including admission/observation considered. I considered the following discharge prescriptions or medication management in the emergency department Medications were administered in the Emergency Department. See MAR. Independent interpretation of the following test(s) in the Emergency Department EKG: See my EKG interpretation above. Test considered but Not performed: CT: no ct chest. Historians other than the Patient: EMS: ems well in formed. Care significantly affected by the following chronic conditions: Hypertension, Chronic Kidney Disease, cva. 10/22 14: Order name: Basic Metabolic Panel; Complete Time: 16:44 [facility] 10/22 14:27 Order name: CBC with Diff; Complete Time: 16:44 [facility] 10/22 14:27 Order name: LFT's; Complete Time: 16:44 [facility] 10/22 14: Order name: Magnesium; Complete Time: :44 [facility] 10/22 14:27 Order name: NT PRO-BNP; Complete Time: 16:44 [facility] 10/22 14:27 Order name: PT-INR; Complete Time: 16:44 [facility] 10/22 14:27 Order name: Troponin HS; Complete Time: 16:44 [facility] 10/22 14:27 Order name: XRAY Chest (1 view); Complete Time: 16:44 [facility] 10/22 14:27 Order name: EKG; Complete Time: 14:28 [facility] 10/22 14:27 Order name: Cardiac monitoring; Complete Time: 16:17 [facility] 10/22 14:27 Order name: EKG - Nurse/Tech; Complete Time: 16:17 [facility] 10/22 14:27 Order name: IV Saline Lock; Complete Time: 15:40 [facility] 10/22 14:27 Order name: Labs collected and sent; Complete Time: 15:40 [facility] 10/22 14:27 Order name: O2 Per Protocol; Complete Time: 15:40 [facility] 10/22 14:27 Order name: O2 Sat Monitoring; Complete Time: 15:40 [facility] EC:44 Rate is 70 beats/min. Rhythm is regular. QRS [place] is Normal. [place] interval is normal. QRS pramod interval is normal. QT interval is normal. No Q waves. T waves are Normal. No ST changes noted. Clinical impression: Normal ECG and No evidence of ischemia. Interpreted by me. Reviewed by me. Administered Medications: 16:17 Drug: Magnesium Sulfate IVPB 1 grams IVPB once over 1 hrs Route: IVPB; Infused Over: 1 ph hrs; Site: left jugular; 17:35 Follow up: Response: No adverse reaction; IV Status: Completed infusion ph 17:52 Drug: Metoprolol PO 50 mg PO once Route: PO; ph 17:52 Follow up: Response: No adverse reaction ph 17:52 Drug: Potassium PO Effervescent Tablet 25 mEq PO once; dissolve in 4 ounces of water or ph juice Route: PO; 19:31 Follow up: Response: No adverse reaction ph Disposition Summary: 10/22/23 16:45 Discharge Ordered Notes: Location: Home pramod Problem: new pramod Symptoms: have improved pramod Condition: Stable pramod Diagnosis - Cardiac arrhythmia, unspecified pramod - Supraventricular tachycardia pramod - Tachycardia, unspecified pramod - End stage renal disease - on HD pramod - Hypokalemia pramod Followup: pramod - With: Private Physician - When: 2 - 3 days - Reason: Recheck today's complaints, Continuance of care, Re-evaluation by your physician Followup: pramod - With: Charles Tracy MD - When: 2 - 3 days - Reason: Recheck today's complaints, Re-evaluation by your physician Followup: pramod - With: Gregorio Cyr MD - When: 1 - 2 days - Reason: Recheck today's complaints, Continuance of care, Re-evaluation by your physician Discharge Instructions: - Discharge Summary Sheet pramod - Potassium Content of Foods pramod - Palpitations pramod - Supraventricular Tachycardia, Adult pramod - Supraventricular Tachycardia, Adult, [id number] pramod - Dialysis pramod - End-Stage Kidney Disease pramod - Palpitations, [id number] pramod - Eating Plan for Dialysis, [id number] pramod - Hemodialysis, Care After pramod - Sinus Tachycardia pramod Forms: - Medication Reconciliation Form [facility] - Thank You Letter pramod - Antibiotic Education pramod - Prescription Opioid Use pramod - Patient Portal Instructions pramod - Leadership Thank You Letter [facility] Prescriptions: - Lopressor 50 mg Oral Tablet - take 1 tablet ORAL route every 12 hours; 30 tablet; Refills: 0, Product pramod Selection Permitted Signatures: Dispatcher [employer] Manuel Shelton MD MD cha Hall, Patricia, RN RN Lynda Flores RN RN ll1 Corrections: (The following items were deleted from the chart) 14:22 14:21 Allergies: No Known Allergies; ll1 ll1
--- NOTE | 2023-10-22 16:45 | ER ---
Nurse's Notes [facility] Name: Ben Otto Age: 58 yrs Sex: Male : 1965 Arrival Date: 10/22/2023 Time: 14:19 Bed 19 Private MD: Diagnosis: Cardiac arrhythmia, unspecified;Supraventricular tachycardia;Tachycardia, unspecified;End stage renal disease-on HD;Hypokalemia Presentation: 10/22 14:22 Chief complaint: Patient states: Chest pressure and palpitations started today. EMS ll1 states: Couldn't get IV. HR 80's-170's. In and out of SVT. Aspirin 324 MG PO given in route. Coronavirus screen: Client denies travel out of the [place] in the last 14 days. At this time, the client does not indicate any symptoms associated with coronavirus-19. Ebola Screen: Patient denies travel to an Ebola-affected area in the 21 days before illness onset. Initial Sepsis Screen: Does the patient meet any 2 criteria? No. Patient's initial sepsis screen is negative. Does the patient have a suspected source of infection? No. Patient's initial sepsis screen is negative. Risk Assessment: Do you want to hurt yourself or someone else? Patient reports no desire to harm self or others. Onset of symptoms was October 22, 2023. 14:22 Method Of Arrival: EMS ll1 14:22 Acuity: JEREMY 2 ll1 Triage Assessment: 14:23 General: Appears in no apparent distress. Behavior is calm, cooperative, appropriate ll1 for age. Pain: Denies pain. Cardiovascular: Reports chest pain, fatigue, palpitations. Historical: - Allergies: 14:21 SHELLFISH; ll1 - PMHx: 14:21 CVA; left sided weakness; Dialysis; Hypertensive disorder; Kidney disease; ll1 - Immunization history:: Adult Immunizations up to date. - Social history:: Smoking status: Patient denies any tobacco usage or history of. - Family history:: not pertinent. Screenin:19 [facility] ED Fall Risk Assessment (Adult) History of falling in the last 3 months, ph including since admission No falls in past 3 months (0 pts) Confusion or Disorientation No (0 pts) Intoxicated or Sedated No (0 pts) Impaired Gait Yes (1 pt) Mobility Assist Device Used Yes (1 pt) Altered Elimination No (0 pt) Score/Fall Risk Level 0 - 2 = Low Risk Oriented to surroundings, Maintained a safe environment, Provided non-skid footwear, Hourly rounding (assess needs \T\ fall precautionary measures) done. 16:20 Abuse screen: Denies threats or abuse. Denies injuries from another. Nutritional ph screening: No deficits noted. Tuberculosis screening: No symptoms or risk factors identified. Assessment: 15:24 Reassessment: No changes from previously documented assessment. Patient and/or family ll1 updated on plan of care and expected duration. Pain level reassessed. 17:03 Reassessment: Patient appears in no apparent distress at this time. Patient and/or ph family updated on plan of care and expected duration. Pain level reassessed. Patient is alert, oriented x 3, equal unlabored respirations, skin warm/dry/pink. D/C pending completion of IV magnesium Patient denies pain at this time. Vital Signs: 15:23 BP 122 / 84; Pulse 74; Resp 16; Temp 98; Pulse Ox 100% on R/A; Pain 0/10; ll1 16:45 BP 128 / 78; Pulse 72; Resp 18; Temp 97.9; Pulse Ox 97% on R/A; ph 15:23 Pain Scale: Adult [facility] ED Course: 14:20 Patient arrived in ED. [facility] 14:23 Triage completed. 1 14:23 Arm band placed on. [facility] 14:26 Manuel De La Cruz MD is Attending Physician. [facility] 15:23 XRAY Chest (1 view) In Process Unspecified. EDMS 15:38 Missed attempt(s): 22 gauge in right upper arm. Bleeding controlled, band aid applied, ll1 catheter tip intact. 15:40 Inserted saline lock: 18 gauge in left EJ, using aseptic technique. Blood collected. by 1 Dr. De La Cruz. 15:49 Cristal Judd, JOBY is Primary Nurse. ph 16:19 Patient has correct armband on for positive identification. Placed in gown. Bed in low ph position. Call light in reach. Side rails up X2. Client placed on continuous cardiac and pulse oximetry monitoring. NIBP monitoring applied. 16:20 No provider procedures requiring assistance completed. Patient maintains SpO2 ph saturation greater than 95% on room air. 16:45 Charles Tracy MD is Referral Physician. [facility] 16:45 Gregorio Cyr MD is Referral Physician. pramod 17:50 IV discontinued, intact, bleeding controlled, No redness/swelling at site. Pressure ph dressing applied. Administered Medications: 16:17 Drug: Magnesium Sulfate IVPB 1 grams IVPB once over 1 hrs Route: IVPB; Infused Over: 1 ph hrs; Site: left jugular; 17:35 Follow up: Response: No adverse reaction; IV Status: Completed infusion ph 17:52 Drug: Metoprolol PO 50 mg PO once Route: PO; ph 17:52 Follow up: Response: No adverse reaction ph 17:52 Drug: Potassium PO Effervescent Tablet 25 mEq PO once; dissolve in 4 ounces of water or ph juice Route: PO; 19:31 Follow up: Response: No adverse reaction ph Medication: 16:20 VIS not applicable for this client. ph Outcome: 16:45 Discharge ordered by . pramod 17:52 Patient left the ED. ph 17:52 Discharged to home ambulatory, with family, ph 17:52 Condition: good 17:52 Discharge instructions given to patient, Instructed on discharge instructions, follow up and referral plans. medication usage, Demonstrated understanding of instructions, follow-up care, medications, Prescriptions given X 1, Signatures: Dispatcher [employer] EDMS Manuel De La Cruz MD MD cha Hall, Patricia, RN RN Lynda Flores RN RN ll1 Corrections: (The following items were deleted from the chart) 14:22 14:21 Allergies: No Known Allergies; ll1 ll1
[2023-10-22 21:20] VITALS: BP 122/84; TEMP 98; O2SAT 100
--- NOTE | 2023-10-23 16:28 | EKG ---
Test Date: 2023-10-22 Test Time: 16:04:53 [employer]: PH MEASUREMENT RESULTS: Intervals: Rate: 70 NV: 196 QRSD: 80 QT: 392 QTc: 423 [place]: P: 50 NV: 196 QRS: 76 T: 70 INTERPRETIVE STATEMENTS: Normal sinus rhythm Normal ECG Compared to ECG 08/06/2023 10:50:30 Sinus bradycardia no longer present First degree AV block no longer present Electronically Signed On 10-23-23 16:25:53 [employer] by Charles Tracy
== END ==
LOC: ER 14:19
DX: I47.10 Supraventricular tachycardia, unspecified (principal); E87.6 Hypokalemia; I12.0 Hypertensive chronic kidney disease with stage 5 chronic kidney disease or end stage renal disease; N18.6 End stage renal disease; Z99.2 Dependence on renal dialysis; Z86.73 Personal history of transient ischemic attack (TIA), and cerebral infarction without residual deficits; Z91.013 Allergy to seafood
CPT/HCPCS: 93005; 85025; 80048; 36415; 83735; 85610; 80076; 84484; 83880; 71045; J3475

== ENCOUNTER 2023-11-17 12:30 | Observation (INO) | payer OTHER ==
[2023-11-17 13:58] LABS: Hematocrit 43.1 % (39.6-49.0); Lymphocytes % 14.1 % (15.3-44.8); MCV 98.9 fL (80-100); Platelets 213 thou/uL (152-406); RBC Red Blood Cell Count 4.35 M/uL (4.33-5.43)
--- NOTE | 2023-11-17 13:58 | RAD REPORT ---
EXAM DESCRIPTION: RADChest Single View11/17/2023 1:41 pm CLINICAL HISTORY: DYSPNEA COMPARISON: Chest Single View dated 11/08/2023; Chest Single View dated 11/06/2023; Chest Single View d ated 10/22/2023; Chest Single View dated 08/06/2023 TECHNIQUE: Portable AP view of the chest. FINDINGS: The lungs are clear. No pneumothorax or effusion. The cardiomediastinal contours are unre markable. IMPRESSION: No acute cardiopulmonary process.
[2023-11-17 14:05] LABS: SARS-CoV-2 Antigen Rapid Res Negative (Negative)
[2023-11-17 14:07] LABS: Protime INR 1.16
[2023-11-17] MEDS ORDERED: IPRATROPIUM BROM 0.5MG/2.5ML ONE (14:36)
[2023-11-17] MEDS ORDERED: OSELTAMIVIR 75 MG CAP PO ONE (14:36)
[2023-11-17] MEDS ORDERED: SOD POLYSTYREN SUL 15 GM/60 ML UCUP ONE (14:36)
[2023-11-17] MEDS ORDERED: ALBUTEROL 2.5 MG/3 ML NEB SOL ONE (14:36)
--- NOTE | 2023-11-17 14:36 | ER ---
Nurse's Notes [facility] Name: Ben Otto Age: 58 yrs Sex: Male : 1965 Arrival Date: 11/17/2023 Time: 12:30 Bed 12 Private MD: Rudi Mandel Diagnosis: Dyspnea;Influenza due to other identified influenza virus with other respiratory manifestations;Dependence on renal dialysis;Hypoxemia;Combined systolic (congestive) and diastolic (congestive) heart failure-volume overloaded;Hyperkalemia Presentation: 11/17 12:37 Chief complaint: EMS states: [facility]LEGED "BLUE FINGERS". NO bp S/S DISTRESS, HD NOT COMPLETED BY HD CLINIC. Coronavirus screen: At this time, the client does not indicate any symptoms associated with coronavirus-19. Ebola Screen: No symptoms or risks identified at this time. Initial Sepsis Screen: Does the patient meet any 2 criteria? No. Patient's initial sepsis screen is negative. Does the patient have a suspected source of infection? No. Patient's initial sepsis screen is negative. Risk Assessment: Do you want to hurt yourself or someone else? Patient reports no desire to harm self or others. Note MISSED HD ON FRIDAY 2/ ILLNESS. Onset of symptoms is unknown. 12:37 Method Of Arrival: EMS: [facility] bp 12:37 Acuity: JEREMY 3 bp Triage Assessment: 12:39 General: Appears in no apparent distress. Behavior is appropriate for age. Pain: Denies bp pain. Respiratory: Reports shortness of breath AT BASELINE x1 WK Onset: The symptoms/episode began/occurred at an unknown time. the patient reports symptoms have resolved. Historical: - Allergies: 12:39 SHELLFISH; bp - PMHx: 12:39 Congestive heart failure; CVA; left sided weakness; Dialysis; Hypertensive disorder; bp kidney disease; - Immunization history:: Adult Immunizations up to date. - Social history:: Smoking status: Patient denies any tobacco usage or history of. Screenin:48 [facility] ED Fall Risk Assessment (Adult) History of falling in the last 3 months, kc6 including since admission No falls in past 3 months (0 pts) Confusion or Disorientation No (0 pts) Intoxicated or Sedated No (0 pts) Impaired Gait No (0 pts) Mobility Assist Device Used No (0 pt) Altered Elimination Yes (1 pt) Score/Fall Risk Level 0 - 2 = Low Risk. Abuse screen: Denies threats or abuse. Denies injuries from another. Nutritional screening: No deficits noted. Tuberculosis screening: No symptoms or risk factors identified. Assessment: 13:48 General: Appears in no apparent distress. comfortable, well groomed, well developed, kc6 Behavior is calm, cooperative, appropriate for age. Pain: Denies pain. Neuro: Level of Consciousness is awake, alert, obeys commands, Oriented to person, place, time, situation, Appropriate for age. Cardiovascular: Denies chest pain, Heart tones S1 S2 present Capillary refill < 3 seconds Rhythm is sinus rhythm Dialysis shunt: in the left arm, with palpable thrill, with auscultated bruit, with no erythema, with no edema, no bleeding noted. Respiratory: Reports shortness of breath Airway is patent Trachea midline Respiratory effort is even, unlabored, Respiratory pattern is regular, symmetrical, Breath sounds are clear bilaterally. GI: No signs and/or symptoms were reported involving the gastrointestinal system. : No signs and/or symptoms were reported regarding the genitourinary system. EENT: No signs and/or symptoms were reported regarding the EENT system. Derm: No signs and/or symptoms reported regarding the dermatologic system. Skin is intact, is healthy with good turgor, Skin is pink, warm \\T\\ dry. Musculoskeletal: No signs and/or symptoms reported regarding the musculoskeletal system. Circulation, motion, and sensation intact. Capillary refill < 3 seconds, Range of motion: intact in all extremities. 14:46 Reassessment: Patient appears in no apparent distress at this time. No changes from kc6 previously documented assessment. Patient and/or family updated on plan of care and expected duration. Pain level reassessed. Patient is alert, oriented x 3, equal unlabored respirations, skin warm/dry/pink. 15:40 Reassessment: Patient appears in no apparent distress at this time. No changes from kc6 previously documented assessment. Patient and/or family updated on plan of care and expected duration. Pain level reassessed. Patient is alert, oriented x 3, equal unlabored respirations, skin warm/dry/pink. 16:26 Reassessment: Patient appears in no apparent distress at this time. No changes from kc6 previously documented assessment. Patient and/or family updated on plan of care and expected duration. Pain level reassessed. Patient is alert, oriented x 3, equal unlabored respirations, skin warm/dry/pink. 16:53 Reassessment: pt to dialysis via stretcher. kc6 20:16 General: attempted to call report, no answer . as6 Vital Signs: 12:37 BP 131 / 87; Pulse 63; Resp 16; Temp 98; Pulse Ox 98% ; bp 14:46 BP 123 / 71; Pulse 63; Resp 16 S; Pulse Ox 99% on R/A; kc6 ED Course: 12:35 Patient arrived in ED. rg4 12:35 Rudi Mandel MD is Private Physician. rg4 12:39 Triage completed. bp 12:39 Arm band placed on. bp 12:41 Manuel De La Cruz MD is Attending Physician. pramod 13:37 Luma Morris, JOBY is Primary Nurse. kc6 13:43 XRAY Chest (1 view) In Process Unspecified. EDMS 13:48 Patient has correct armband on for positive identification. Bed in low position. Call kc6 light in reach. Side rails up X 1. Client placed on continuous cardiac and pulse oximetry monitoring. NIBP monitoring applied. athletic monitor on. 13:48 Flu Sent. kc6 13:48 SARS RAPID Sent. kc6 13:48 Missed attempt(s): 20 gauge in right antecubital area. Patient maintains SpO2 kc6 saturation greater than 95% on room air. 13:53 Inserted saline lock: 18 gauge in left EJ, using aseptic technique. Blood collected. as6 14:34 Rudi Mandel MD is Hospitalizing Provider. pramod 18:35 No provider procedures requiring assistance completed. Patient admitted, IV remains in kc6 place. 20:16 Provided Education on: need for admit. as6 Administered Medications: 14:45 Drug: Oseltamivir PO 75 mg PO once Route: PO; kc6 16:26 Follow up: Response: No adverse reaction kc6 14:45 Drug: Albuterol Inhalation 5 mg Inhalation once Route: Inhalation; kc6 16:26 Follow up: Response: No adverse reaction kc6 14:45 Drug: Ipratropium Inhalation Aerosol 0.5 mg Inhalation once Route: Inhalation; kc6 16:26 Follow up: Response: No adverse reaction kc6 14:45 Drug: Kayexalate PO 30 grams PO once Route: PO; kc6 16:26 Follow up: Response: No adverse reaction kc6 Medication: 18:35 VIS not applicable for this client. kc6 Outcome: 14:36 Decision to Hospitalize by Provider. pramod 18:35 Admitted to ER Hold. Please see [facility] for further documentation. kc6 18:35 Condition: good 18:35 Instructed on the need for admit, 20:25 Patient left the ED. as6 Signatures: Dispatcher [employer] EDMS Manuel De La Cruz MD MD cha Garcia, Rubi rg4 Garth Lindquist, RN RN bp Osmani Hart RN RN as6 Luma Morris RN RN kc6
--- NOTE | 2023-11-17 14:37 | EDPHYS ---
Physician Documentation [facility] Name: Ben Otto Age: 58 yrs Sex: Male : 1965 Arrival Date: 11/17/2023 Time: 12:30 Bed 12 Private MD: Rudi Mandel ED Physician Manuel De La Cruz HPI: 11/17 14:19 This 58 yrs old Male presents to ER via EMS with complaints of Shortness Of pramod Breath. 14:19 The patient has shortness of breath at rest, with light activity. Onset: The pramod symptoms/episode began/occurred 3 day(s) ago. Duration: The symptoms are continuous, and are steadily getting worse. The patient's shortness of breath is aggravated by coughing, exertion, light activity. Associated signs and symptoms: Pertinent positives: non-productive cough. Severity of symptoms: At their worst the symptoms were moderate in the emergency department the symptoms are unchanged. The patient has experienced similar episodes in the past, a few times. Historical: - Allergies: 12:39 SHELLFISH; bp - PMHx: 12:39 Congestive heart failure; CVA; left sided weakness; Dialysis; Hypertensive disorder; bp kidney disease; - Immunization history:: Adult Immunizations up to date. - Social history:: Smoking status: Patient denies any tobacco usage or history of. ROS: 14:20 Constitutional: Negative for fever, chills, and weight loss, Eyes: Negative for injury, pramod pain, redness, and discharge, ENT: Negative for injury, pain, and discharge, Neck: Negative for injury, pain, and swelling, Cardiovascular: Negative for chest pain, palpitations, and edema, Back: Negative for injury and pain, : Negative for injury, bleeding, discharge, and swelling, MS/Extremity: Negative for injury and deformity, Skin: Negative for injury, rash, and discoloration, Neuro: Negative for headache, weakness, numbness, tingling, and seizure, Psych: Negative for depression, anxiety, suicide ideation, homicidal ideation, and hallucinations, Allergy/Immunology: Negative for hives, rash, and allergies, Endocrine: Negative for neck swelling, polydipsia, polyuria, polyphagia, and marked weight changes, Hematologic/Lymphatic: Negative for swollen nodes, abnormal bleeding, and unusual bruising, 14:20 Respiratory: Positive for cough, shortness of breath, wheezing, expiratory, 14:20 Skin: Positive for cyanosis nail beds, Exam: 14:20 Constitutional: This is a well developed, well nourished patient who is awake, alert, pramod and in no acute distress. Head/Face: Normocephalic, atraumatic. Eyes: Pupils equal round and reactive to light, extra-ocular motions intact. Lids and lashes normal. Conjunctiva and sclera are non-icteric and not injected. Cornea within normal limits. Periorbital areas with no swelling, redness, or edema. ENT: Nares patent. No nasal discharge, no septal abnormalities noted. Tympanic membranes are normal and external auditory canals are clear. Oropharynx with no redness, swelling, or masses, exudates, or evidence of obstruction, uvula midline. Mucous membranes moist. Neck: Trachea midline, no thyromegaly or masses palpated, and no cervical lymphadenopathy. Supple, full range of motion without nuchal rigidity, or vertebral point tenderness. No Meningismus. Chest/axilla: Normal chest wall appearance and motion. Nontender with no deformity. No lesions are appreciated. Cardiovascular: Regular rate and rhythm with a normal S1 and S2. No gallops, murmurs, or rubs. Normal PMI, no JVD. No pulse deficits. Abdomen/GI: Soft, non-tender, with normal bowel sounds. No distension or tympany. No guarding or rebound. No evidence of tenderness throughout. Back: No spinal tenderness. No costovertebral tenderness. Full range of motion. Male : Normal genitalia with no discharge or lesions. Skin: Warm, dry with normal turgor. Normal color with no rashes, no lesions, and no evidence of cellulitis. Neuro: Awake and alert, GCS 15, oriented to person, place, time, and situation. Cranial nerves II-XII grossly intact. Motor strength 5/5 in all extremities. Sensory grossly intact. Cerebellar exam normal. Normal gait. Psych: Awake, alert, with orientation to person, place and time. Behavior, mood, and affect are within normal limits. 14:20 ECG was reviewed by the Attending Physician. 14:20 Respiratory: mild respiratory distress is noted, Respirations: labored breathing, that is mild, Breath sounds: bronchial sounds, that are mild, are scattered, decreased breath sounds, that are mild, rhonchi, that are mild, stridor, is not appreciated, + upper airway congestion. wheezing: expiratory Vital Signs: 12:37 BP 131 / 87; Pulse 63; Resp 16; Temp 98; Pulse Ox 98% ; bp 14:46 BP 123 / 71; Pulse 63; Resp 16 S; Pulse Ox 99% on R/A; kc6 MDM: 12:41 Patient medically screened. pramod 14:41 Differential diagnosis: Anemia Bronchitis CHF exacerbation, Chronic Obstructive pramod Pulmonary Disease pneumonia, pulmonary edema, reactive airway disease, Sepsis Unstable Angina. Antibiotic administration: Not indicated. Differential Diagnosis sepsis, flu, Obstructed Airway Bronchitis Influenza Upper Respiratory Infection Pharyngitis Asthma Exacerbation Viral Syndrome Pneumonia. Data reviewed: vital signs, nurses notes, lab test result(s), EKG, radiologic studies, plain films. Consideration of Admission/Observation Patient was admitted/placed on observation. Escalation of care including admission/observation considered. I considered the following discharge prescriptions or medication management in the emergency department Medications were administered in the Emergency Department. See MAR. Independent interpretation of the following test(s) in the Emergency Department EKG: See my EKG interpretation above. Test considered but Not performed: CT: no ct chest. Care significantly affected by the following chronic conditions: Diabetes, Hypertension, Congestive Heart Failure, Obesity, Chronic Kidney Disease. Counseling: I had a detailed discussion with the patient and/or guardian regarding the historical points, exam findings, and any diagnostic results supporting the discharge/admit diagnosis, the presence of at least one elevated blood pressure reading (>120/80) during this emergency department visit, lab results, radiology results, the need for further work-up and treatment in the hospital. 11/17 12:44 Order name: Basic Metabolic Panel 11/17 12:44 Order name: CBC with Diff; Complete Time: 14:12 11/17 12:44 Order name: LFT's 11/17 12:44 Order name: Magnesium 11/17 12:44 Order name: NT PRO-BNP 11/17 12:44 Order name: PT-INR; Complete Time: 14:12 11/17 12:44 Order name: Troponin HS 11/17 12:44 Order name: TSH 11/17 12:44 Order name: Urinalysis w/ reflexes 11/17 12:44 Order name: Lipase 11/17 12:44 Order name: SARS RAPID; Complete Time: 14:12 [facility] 11/17 12:44 Order name: Flu; Complete Time: 14:12 [facility] 11/17 14:18 Order name: ABG [facility] 11/17 18:02 Order name: Urinalysis w/ reflexes [facility] 11/17 18:39 Order name: Hep B surface AG w/Reflex [facility] 11/17 18:39 Order name: Hepatitis B Surface Ab, QL/QN [facility] 11/17 19:11 Order name: Troponin High Sensitivity [facility] 11/17 12:44 Order name: XRAY Chest (1 view); Complete Time: 14:12 [facility] 11/17 12:44 Order name: EKG; Complete Time: 12:44 [facility] 11/17 14:50 Order name: CONS Physician Consult [facility] 11/17 12:44 Order name: Cardiac monitoring; Complete Time: 13:48 [facility] 11/17 12:44 Order name: EKG - Nurse/Tech; Complete Time: 13:48 [facility] 11/17 12:44 Order name: IV Saline Lock; Complete Time: 13:53 [facility] 11/17 12:44 Order name: Labs collected and sent; Complete Time: 13:53 [facility] 11/17 12:44 Order name: O2 Per Protocol; Complete Time: 13:48 [facility] 11/17 12:44 Order name: O2 Sat Monitoring; Complete Time: 13:48 [facility] EC:20 Rate is 61 beats/min. Rhythm is regular. QRS [place] is Normal. QRS interval is normal. QT pramod interval is normal. No Q waves. T waves are Peaked. No ST changes noted. Clinical impression: NSR w/ Non-specific ST/T Changes and Suggests hyperkalemia. Interpreted by me. Reviewed by me. Administered Medications: 14:45 Drug: Oseltamivir PO 75 mg PO once Route: PO; kc6 16:26 Follow up: Response: No adverse reaction kc6 14:45 Drug: Albuterol Inhalation 5 mg Inhalation once Route: Inhalation; kc6 16:26 Follow up: Response: No adverse reaction kc6 14:45 Drug: Ipratropium Inhalation Aerosol 0.5 mg Inhalation once Route: Inhalation; kc6 16:26 Follow up: Response: No adverse reaction kc6 14:45 Drug: Kayexalate PO 30 grams PO once Route: PO; kc6 16:26 Follow up: Response: No adverse reaction kc6 Disposition Summary: 11/17/23 14:36 Hospitalization Ordered Notes: Hospitalization Status: Inpatient Admission pramod Provider: Rudi Mandel cha Condition: Stable pramod Problem: new pramod Symptoms: have improved pramod Bed/Room Type: Standard pramod Location: Telemetry/MedSurg (Inpatient)(11/17/23 19:32) kl Room Assignment: 222(11/17/23 19:32) kl Diagnosis - Dyspnea pramod - Influenza due to other identified influenza virus with other respiratory pramod manifestations - Dependence on renal dialysis pramod - Hypoxemia pramod - Combined systolic (congestive) and diastolic (congestive) heart failure - volume pramod overloaded - Hyperkalemia pramod Forms: - Medication Reconciliation Form pramod - SBAR form pramod - Leadership Thank You Letter pramod Signatures: Dispatcher [employer] EDMS Mikaela Antoine Kimberly RN Manuel Canchola MD MD cha Peltier, Brian, RN RN bp Campbell, Kaitlyn, RN RN kc6 Corrections: (The following items were deleted from the chart) 16:12 14:36 Telemetry/MedSurg (Inpatient) pramod bd 16:12 14:36 pramod bd 19:32 16:12 [facility] ER HOLD bd kl 19:32 16:12 ERHOLD- bd kl
[2023-11-17 14:42] LABS: Arterial Blood Carboxyhemoglob 0.4 % (0-1.5); Blood Gas Oxyhemoglobin 93.8 % (94-97); Blood O2 Saturation 95.7 % (92-98.5)
[2023-11-17 14:50] LABS: Albumin 3.2 g/dL (3.4-5.0); Bilirubin Direct 0.1 mg/dL (0-0.2); Bilirubin Indirect, Calculated 0.2 mg/dL (0.2-0.8); Bilirubin Total 0.3 mg/dL (0.2-1.0); Magnesium 2.9 mg/dL (1.6-2.4); Potassium 5.4 mEq/L (3.5-5.1); Protein, Total 8.6 g/dL (6.4-8.2); Thyroid Stimulating Hormone 1.85 uIU/mL (0.358-3.740); Troponin High Sensitivity 10.2 pg/mL (<58.9)
[2023-11-17] MEDS ORDERED: ONDANSETRON 4 MG/2 ML VIAL IV PRN (17:37)
[2023-11-17] MEDS ORDERED: ALBUTEROL 2.5 MG/3 ML NEB SOL NEB PRN (17:37)
[2023-11-17] MEDS ORDERED: IPRATROPIUM BROM 0.5MG/2.5ML NEB PRN (17:37)
[2023-11-17] MEDS: FUROSEMIDE 20 MG/ 2ML VIAL IV SCH (17:43)
[2023-11-17] MEDS: OSELTAMIVIR 30 MG CAP PO SCH (18:00)
--- NOTE | 2023-11-17 18:00 | P.HP ---
Certification for Inpatient Patient admitted to: Observation With expected LOS: <2 Midnights Patient will require the following post-hospital care: None Practitioner: I am a practitioner with admitting privileges, knowledge of patient current condition, hospital course, and medical plan of care. Services: Services provided to patient in accordance with Admission requirements found in Title 42 Section 412.3 of the Code of Federal Regulations Patient History Date of Service: 11/17/23 Primary Care Provider: Ministerio Reason for admission: shortness of breath, non compliance with dialysis History of Present Illness: Patient of mine with a history of ESRD, htn and hyperlipidemia. He was having fevers and possible diarrhea on Friday. So he decided not to go to dialysis. went today. However he was short of breath and the dialysis center sent him to the ER. He is in Dialysis at this time. He has no complaints at this time. No fevers or chills. Allergies No Known Allergies Allergy (Unverified 11/19/22 21:39) Home Medications: Esomeprazole Mag Trihydrate [Nexium] 40 mg PO DAILY 05/11/23 Metoprolol Succinate [Toprol Xl*] 50 mg PO DAILY 05/11/23 Sevelamer Carbonate [Renvela*] 800 mg PO TID 05/11/23 Smz./Tmp. [Bactrim Ds 800 MG/160 MG] 1 tab PO BID 5 Days #10 tab 05/11/23 Nirmatrelvir/Ritonavir [Paxlovid 150-100 mg Pack (Eua)] 1 each PO BID 5 Days #10 tab 05/29/23 - Past Medical/Surgical History Diabetic: No -: KIdney Failure -: CVA -: Placement HD Access left upper arm - Family History Father -: Diabetes Mother -: Diabetes - Social History Alcohol use: No CD- Drugs: No Caffeine use: Yes Review of Systems 10-point ROS is otherwise unremarkable Respiratory: Shortness of Breath Physical Examination - Physical Exam General: Alert, In no apparent distress HEENT: Atraumatic, PERRLA, Mucous membr. moist/pink, EOMI, Sclerae nonicteric Neck: Supple, 2+ carotid pulse no bruit, No LAD, Without JVD or thyroid abnormality Respiratory: Clear to auscultation bilaterally, Normal air movement Cardiovascular: Regular rate/rhythm, Normal S1 S2 Gastrointestinal: Normal bowel sounds, No tenderness Musculoskeletal: No tenderness Integumentary: No rashes Neurological: Normal gait, Normal speech, Normal strength at 5/5 x4 extr, Normal tone, Normal affect Lymphatics: No axilla or inguinal lymphadenopathy - Studies Laboratory Data (last 24 hrs) 11/17/23 11/17/23 11/17/23 13:51 13:51 13:51 WBC 6.70 Hgb 14.6 Hct 43.1 Plt Count 213 PT 12.7 H INR 1.16 Sodium 128 L Potassium 5.4 H BUN 86 H Creatinine 12.80 H Glucose 104 Magnesium 2.9 H Total Bilirubin 0.3 AST 22 ALT 19 Alkaline Phosphatase 87 Lipase 161 H Microbiology Data (last 24 hrs): 11/17/23 13:45 Nasopharnyx Influenza Type A Antigen Screen - Final 11/17/23 13:45 Nasopharnyx Influenza Type B Antigen Screen - Final Assessment and Plan - Problems (Diagnosis) (1) ESRD (end stage renal disease) Current Visit: No Status: Chronic Plan: will continue his dialysis with Dr. Beth supervising. Hopefully we can discharge the patient in the morning (2) Atrial fibrillation with RVR Current Visit: No Status: Chronic Plan: will continue metoprolol and check his tsh (3) HTN (hypertension) Current Visit: No Status: Chronic Plan: restart his home medications. Qualifiers: Hypertension type: primary hypertension Discharge Plan: Home Plan to discharge in: 24 Hours - Advance Directives Does patient have a Living Will: No Does patient have a Durable POA for Healthcare: No - Code Status/Comfort Care Code Status Assessed: Yes Code Status: Full Code Physician Review: Patient Assessed, Agree with Above Assessment and Plan Critical Care: No Time Spent Managing Pts Care (In Minutes): 45
[2023-11-17 18:02] LABS: Specific Gravity 1.014 (1.005-1.030); Urine Bacteria None Seen /HPF (<20); Urine Bilirubin NEGATIVE (Negative); Urine Blood 1+ (Negative); Urine Clarity Clear (Clear); Urine Color Light-Yellow (Yellow); Urine Crystals Unidentified Few /HPF (None Seen); Urine Glucose TRACE (Negative); Urine Protein 2+ (Negative); Urine RBC <5 /HPF (None Seen); Urine Urobilinogen Normal (Normal)
[2023-11-17 18:39] LABS: Hepatitis B Surface Ab - Quant 252.46 mIU/mL (<8.0); Hepatitis B surface AG Interp. Nonreactive (Nonreactive)
[2023-11-17 20:42] VITALS: O2SAT 99
[2023-11-17] MEDS: SOD POLYSTYREN SUL 15 GM/60 ML UCUP PO SCH (21:00)
[2023-11-17] MEDS: ACETAMINOPHEN 325 MG TABLET PO PRN (22:03)
[2023-11-17 22:16] VITALS: BMI 28.1
--- NOTE | 2023-11-18 03:21 | CON ---
Date of Consultation: 11/17/2023 Chief Complaint: Shortness of breath, noncompliance with dialysis, hyperkalemia. History Of Present Illness: The patient has history of end-stage renal disease. He has been dialyze d on Friday, Friday, Friday. Last dialysis was done on Friday. The patient did not show for d ialysis on Friday. Subsequently, he was sent to emergency room today from dialysis because he was fo und to have severe hypoxemia. Blood pressure was stable. Patient denies any chest pain, palpitation , or confusion. He had severe hypoxemia and was sent to the hospital for further evaluation. Nephro logy consultation is requested for fluid overload, end-stage renal disease, and hyperkalemia. Kamran handy received Lokelma for treatment of hyperkalemia. Past Medical History: Hypertension, end-stage renal disease, anemia, CKD, renal osteodystrophy, hype rlipidemia, intradialytic hypotension, peptic ulcer disease, and GERD. Past Surgical History: Placed dialysis catheter. Family History: Father, diabetes. . Social History: Denies tobacco, alcohol, illicit drugs. Review of Systems: Constitutional: Denies fever or chills. Eyes: Denies vision changes. Ears, Nose, Mouth, and Throat: Denies sore throat, earache. Respiratory: Denies PND, orthopnea. Has shortness of breath with activities. Denies wheezing, rhon chi. GI: Denies nausea, vomiting. : Denies dysuria, hematuria. reviewed and all are negative. Physical Examination: General: Patient is alert and oriented x3. HEENT: Atraumatic, normocephalic. Anicteric sclerae. Neck: Supple. No JVD. No bruits. Respiratory: Clear to auscultation bilaterally. GI: Normal bowel sounds. No tenderness. Musculoskeletal: No tenderness. Neurologic: Normal gait. Normal speech. No tremor. Laboratory Work: WBC 6.7, hemoglobin 14.6, platelet count is 213. Sodium 128, potassium 5.4, chlori de 86, creatinine level is 12.8, magnesium 2.9, glucose 104, total bilirubin 0.3, AST 22, ALT 19, AP 87. Impression: 1.The patient has history of end-stage renal disease. He has history of noncompliance and he was fo und to have fluid overload. He came to emergency room for further evaluation and management of short ness of breath. The patient is to start dialysis and plan is to monitor electrolyte panel. 2.Atrial fibrillation with rapid ventricular response. Continue metoprolol. 3.Hypertension, chronic. Patient will continue blood pressure medication. 4.Anemia in chronic kidney disease. Monitor hemoglobin level. Adjust ANNE. 5.Renal osteodystrophy. Continue renal diet and binders. EB/MODL Voice ID: [id number] Report ID: [id number]
[2023-11-18 06:24] LABS: Absolute Lymphocytes (CBC) 0.8 K/uL (0.7-4.9); Hematocrit 42.4 % (39.6-49.0); MCV 97.9 fL (80-100); MPV 8.2 fL (7.6-11.3); Platelets 188 thou/uL (152-406); RBC Red Blood Cell Count 4.33 M/uL (4.33-5.43)
[2023-11-18 06:48] LABS: Potassium 3.6 mEq/L (3.5-5.1)
[2023-11-18] MEDS ORDERED: ONDANSETRON 4 MG/2 ML VIAL IV PRN (07:55)
--- NOTE | 2023-11-18 08:00 | P.DS ---
Admission Date: 11/17/23 Discharge Date: 11/18/23 Primary Care Provider: Ministerio Reason for Admission: shortness of breath, non compliance with dialysis - Problems (1) ESRD (end stage renal disease) Current Visit: No Status: Chronic (2) Atrial fibrillation with RVR Current Visit: No Status: Chronic (3) HTN (hypertension) Current Visit: No Status: Chronic Qualifiers: Hypertension type: primary hypertension Brief History of Present Illness: Patient of mine with a history of ESRD, htn and hyperlipidemia. He was having fevers and possible diarrhea on Friday. So he decided not to go to dialysis. went today. However he was short of breath and the dialysis center sent him to the ER. He is in Dialysis at this time. He has no complaints at this time. No fevers or chills. Hospital Course: Patient was admitted for dialysis. Seen By Dr. Beth. He has some abdominal cramps this morning. Will give him some zofran. Will discharge him home if ok with Dr. Beth. Have him follow up with me in a week. Thank you for allowing me to be a part of his care. Vital Signs/Physical Exam: Temp Pulse Resp BP Pulse Ox 97.5 F 74 20 104/80 98 11/18/23 04:00 11/18/23 04:00 11/18/23 04:00 11/18/23 05:20 11/18/23 04:00 General: Alert, In no apparent distress HEENT: Atraumatic, PERRLA, EOMI Neck: Supple, JVD not distended Respiratory: Clear to auscultation bilaterally, Normal air movement Cardiovascular: Regular rate/rhythm, Normal S1 S2 Gastrointestinal: Normal bowel sounds, No tenderness Musculoskeletal: No tenderness Integumentary: No rashes Neurological: Normal speech, Normal tone, Normal affect Lymphatics: No axilla or inguinal lymphadenopathy Laboratory Data at Discharge: WBC 5.50 thou/uL (4.3-10.9) 11/18/23 06:08 Hgb 14.5 g/dL (13.6-17.9) 11/18/23 06:08 Hct 42.4 % (39.6-49.0) 11/18/23 06:08 Plt Count 188 thou/uL (152-406) 11/18/23 06:08 PT 12.7 SECONDS (9.5-12.5) H 11/17/23 13:51 INR 1.16 11/17/23 13:51 Sodium 133 mEq/L (136-145) L D 11/18/23 06:08 Potassium 3.6 mEq/L (3.5-5.1) D 11/18/23 06:08 BUN 45 mg/dL (7-18) H 11/18/23 06:08 Creatinine 8.77 mg/dL (0.70-1.30) H 11/18/23 06:08 Glucose 128 mg/dL (74-106) H 11/18/23 06:08 Magnesium 2.9 mg/dL (1.6-2.4) H 11/17/23 13:51 Total Bilirubin 0.3 mg/dL (0.2-1.0) 11/17/23 13:51 AST 22 U/L (15-37) 11/17/23 13:51 ALT 19 U/L (16-61) 11/17/23 13:51 Alkaline Phosphatase 87 U/L (45-117) 11/17/23 13:51 Lipase 161 U/L (13-75) H 11/17/23 13:51 Home Medications: Metoprolol Succinate [Toprol Xl*] 50 mg PO BID 05/11/23 Sevelamer Carbonate [Renvela*] 800 mg PO TID 05/11/23 Promethazine Tab [Phenergan] 25 mg PO Q6HP PRN 5 Days #20 tab 11/18/23 New Medications: Promethazine Tab [Phenergan] 25 mg PO Q6HP PRN 5 Days #20 tab PRN Reason: Abdominal Pain Followup: Rudi Mandel MD [ACTIVE - CAN ADMIT] - Time spent managing pt's care (in minutes): 30
--- NOTE | 2023-11-18 08:09 | RAD REPORT ---
EXAM DESCRIPTION: RAD - Chest Single View - 11/18/2023 4:30 am CLINICAL HISTORY: Chest Pain Chest pain. COMPARISON: Chest Single View dated 11/17/2023; Chest Single View dated 11/08/2023; Chest Single View dated 11/06/2023; Chest Single View dated 10/22/2023 FINDINGS: Portable technique limits examination quality. The lungs are grossly clear. The heart is normal in size. No displaced fractures. IMPRESSION: No acute intrathoracic process suspected.
[2023-11-18] MEDS: METOPROLOL XL 50 MG TAB PO SCH (09:00)
[2023-11-18] MEDS ORDERED: HOME MED 1 EA UNK (Esomeprazole Mag Trihydrate [Nexium] 40 MG Capsule.Dr) PO SCH (09:00)
[2023-11-18] MEDS: SEVELAMER CARBONATE 800 MG TABLET PO SCH (09:54)
[2023-11-18] MEDS: PANTOPRAZOLE 40MG TABLET PO SCH (09:54)
[2023-11-18 10:24] VITALS: BP 92/64
[2023-11-18 10:25] VITALS: TEMP 97.6
[2023-11-18] MEDS ORDERED: ENOXAPARIN 30 MG/0.3 ML SQ SCH (17:00)
== END 2023-11-18 12:22 | disposition home or self-care (01) ==
LOC: ER 12:30 → ERHOLD 14:46 → INTOOBSV 14:46 → 2ND 20:22
PROVIDERS: ADMIT Internal Medicine; ATTEND Internal Medicine
DX: I12.0 Hypertensive chronic kidney disease with stage 5 chronic kidney disease or end stage renal disease (principal); N18.6 End stage renal disease; Z99.2 Dependence on renal dialysis; Z91.158 Patient's noncompliance with renal dialysis for other reason; E87.5 Hyperkalemia; D63.1 Anemia in chronic kidney disease; N25.0 Renal osteodystrophy; K21.9 Gastro-esophageal reflux disease without esophagitis; I95.3 Hypotension of hemodialysis; I48.91 Unspecified atrial fibrillation; Z11.52 Encounter for screening for COVID-19
CPT/HCPCS: 85025 ×2; 81001; 80048 ×2; 36415; 83735; 85610; 82947; 80076; 84443; 84484 ×2; 83690; 83880 ×2; 87340; 86706; 87804 ×2; 71045 ×2; 90935 ×2; 82805; 87811; 36600; J1940; J7613; J7644; J1644; 93005; G0378

== ENCOUNTER 2024-02-02 13:24 | Emergency (ER) | payer OTHER ==
[2024-02-02 13:46] LABS: Absolute Eosinophils 0.2 K/uL (0-0.5); Absolute Lymphocytes (CBC) 1.6 K/uL (0.7-4.9); Absolute Monocytes 0.3 K/uL (0.1-1.3); Absolute Neutrophil 4.3 K/uL (1.8-8.0); Basophils % 0.6 % (0-1.3); Eosinophils % 3.3 % (0-4.4); Hematocrit 42.4 % (39.6-49.0); Hemoglobin 13.9 g/dL (13.6-17.9); Lymphocytes % 24.2 % (15.3-44.8); MCH 32.2 pg (27.0-35.0); MCHC 32.8 g/dL (32.0-36.0); MCV 98.1 fL (80-100); MPV 8.2 fL (7.6-11.3); Monocytes % 4.5 % (3.3-12.3); Neutrophils % 67.4 % (41.7-73.7); Nucleated Red Blood Cells % 0.1 % (0-0); Platelets 250 thou/uL (152-406); RBC Red Blood Cell Count 4.33 M/uL (4.33-5.43); Red Cell Distribution Width 15.3 % (12.1-15.2)
[2024-02-02 14:04] LABS: Anion Gap 5.9 mEq/L (5.0-15.0); Potassium 3.9 mEq/L (3.5-5.1)
--- NOTE | 2024-02-02 14:20 | EDPHYS ---
Physician Documentation [facility] Name: Ben Otto Age: 58 yrs Sex: Male : 1965 Arrival Date: 02/02/2024 Time: 13:24 Bed 2 Private MD: ED Physician Javier Lai HPI: 02/01 13:26 This 58 yrs old Male presents to ER via Unassigned with complaints of elevated ec2 HR. 13:26 Patient arrives today for evaluation possible elevated heart rate. Patient was ec2 undergoing dialysis run today, noted to have elevated heart rates in the 150s reportedly. Patient with history of atrial fibrillation. Patient denies any difficulty breathing or chest pain. Patient had removed approximately 1.2 L of volume on his dialysis from today. EMS reports on their assessment, patient noted to be in heart rates in the 80s.. Historical: - Allergies: 13:43 SHELLFISH; db - PMHx: 13:43 Congestive heart failure; CVA; left sided weakness; Dialysis; Hypertensive disorder; db kidney disease; - Immunization history:: Adult Immunizations unknown. - Infectious Disease History:: Denies. - Social history:: Smoking status: Patient denies any tobacco usage or history of. ROS: 13:26 Constitutional: as per hpi ec2 Exam: 13:26 Constitutional: GEN: NAD Head: atraumatic Eyes: EOMI Ears: External ears are ec2 normal. CV: regular rate LUNGS: no respiratory distress ABD: non-distended SKIN: no evidence of rashes MSK: no evidence of trauma NEURO: moves all extremities equally Vital Signs: 13:21 BP 148 / 90; Pulse 72; Resp 18; Temp 98.4(O); Pulse Ox 98% ; Weight 83.46 kg; Height 5 db ft. 7 in. ; 15:00 BP 167 / 95; Pulse 71; Resp 18; Temp 98.4; Pulse Ox 98% on R/A; db 13:21 Body Mass Index 28.82 (83.46 kg, 170.18 cm) db MDM: 13:26 Patient medically screened. ec2 13:26 Data reviewed: vital signs. ED course: Patient arrives today for evaluation of ec2 tachycardia. Examination markable for well-appearing nontoxic dividual is otherwise in no acute distress with a reassuring examination. Patient with normal heart rate on arrival. Will obtain a cardiac evaluation, EKG. Evaluate for arrhythmia, electrolyte disturbances. Doubt ACS. Patient otherwise well-appearing, does not appear to be volume overloaded.. 13:37 ED course: EKG obtained, independently reviewed and interpreted by me, shows sinus ec2 rhythm, rate of 72, no acute ST segment elevations, motion artifact noted.. 14:13 ED course: With appropriate electrolytes, expected renal dysfunction. CBC reassuring. . ec2 14:15 ED course: Patient remains with appropriate heart rates ranging 70s to 80s.. ec2 14:16 ED course: Chest x-ray independently reviewed and interpreted by me, shows borderline ec2 cardiomegaly, no significant volume overload appreciated. On reassessment patient is well-appearing in no acute distress. Will discharge home. Return precautions given. Instructed to follow-up with his primary care doctor as well as inside sales manager.. 02/01 13:26 Order name: Basic Metabolic Panel; Complete Time: 14:13 ec2 02/01 13:26 Order name: CBC with Diff; Complete Time: 14:13 ec2 02/01 13:26 Order name: XRAY Chest (1 view); Complete Time: 14:29 ec2 02/01 13:26 Order name: EKG; Complete Time: 13:26 ec2 02/01 13:26 Order name: Cardiac monitoring; Complete Time: 13:41 ec2 02/01 13:26 Order name: EKG - Nurse/Tech; Complete Time: 13:41 ec2 02/01 13:26 Order name: IV Saline Lock; Complete Time: 13:41 ec2 02/01 13:26 Order name: Labs collected and sent; Complete Time: 13:41 ec2 02/01 13:26 Order name: O2 Per Protocol; Complete Time: 14:15 ec2 02/01 13:26 Order name: O2 Sat Monitoring; Complete Time: 13:41 ec2 Administered Medications: No medications were administered Disposition Summary: 02/02/24 14:18 Discharge Ordered Notes: Location: Home ec2 Condition: Stable ec2 Diagnosis - Palpitations ec2 Followup: ec2 - With: Private Physician - When: - Reason: Re-evaluation by your physician Discharge Instructions: - Discharge Summary Sheet ec2 - Palpitations ec2 Forms: - Medication Reconciliation Form ec2 - Antibiotic Education ec2 - Prescription Opioid Use ec2 - Patient Portal Instructions ec2 - Leadership Thank You Letter ec2 Signatures: Dispatcher [employer] Santa Pardo RN RN Javier Yepez MD MD ec2 Corrections: (The following items were deleted from the chart) 13:28 13:26 Patient arrives today for evaluation possible elevated heart rate. Patient was ec2 undergoing dialysis run today, noted to have elevated heart rates in the 150s reportedly. Patient with history of atrial fibrillation. Patient denies any difficulty breathing or chest pain. Patient had removed approximately 1.2 L of volume on his dialysis from today.. ec2
--- NOTE | 2024-02-02 14:20 | ER ---
Nurse's Notes [facility] Name: Ben Otto Age: 58 yrs Sex: Male : 1965 Arrival Date: 02/02/2024 Time: 13:24 Bed 2 Private MD: Diagnosis: Palpitations Presentation: 02/01 13:21 Chief complaint: EMS states: PATIENT WAS AT DIALYSIS STARTED HAVING DIZZINES, FLUTTER db HR OF 170, UPON EMS ARRIVAL 80'S. DENIES CP. DIALYSIS PULLED OFF 1.2 LITERS FLUID. REPORTS HAS HEART MONITOR AND HAS NOT BEEN TAKING PRESCRIBED METOPROLOL. Coronavirus screen: Client denies travel out of the [place] in the last 14 days. At this time, the client does not indicate any symptoms associated with coronavirus-19. Ebola Screen: Patient negative for fever greater than or equal to 101.5 degrees Fahrenheit, and additional compatible Ebola Virus Disease symptoms Patient denies exposure to infectious person. Patient denies travel to an Ebola-affected area in the 21 days before illness onset. No symptoms or risks identified at this time. Initial Sepsis Screen: Does the patient meet any 2 criteria? No. Patient's initial sepsis screen is negative. Does the patient have a suspected source of infection? No. Patient's initial sepsis screen is negative. Risk Assessment: Do you want to hurt yourself or someone else? Patient reports no desire to harm self or others. Onset of symptoms was February 02, 2024. Care prior to arrival: Glucose check: 134. 13:21 Method Of Arrival: EMS: [facility] db 13:21 Acuity: JEREMY 2 db Triage Assessment: 13:43 General: Appears in no apparent distress. comfortable, Behavior is calm, cooperative. db Pain: Denies pain. Neuro: Level of Consciousness is awake, alert, obeys commands, Oriented to person, place, time, situation. Respiratory: Airway is patent Respiratory effort is even, unlabored, Respiratory pattern is regular, symmetrical. Historical: - Allergies: 13:43 SHELLFISH; db - PMHx: 13:43 Congestive heart failure; CVA; left sided weakness; Dialysis; Hypertensive disorder; db kidney disease; - Immunization history:: Adult Immunizations unknown. - Infectious Disease History:: Denies. - Social history:: Smoking status: Patient denies any tobacco usage or history of. Screenin:46 [facility] ED Fall Risk Assessment (Adult) History of falling in the last 3 months, db including since admission No falls in past 3 months (0 pts) Confusion or Disorientation No (0 pts) Intoxicated or Sedated No (0 pts) Impaired Gait No (0 pts) Mobility Assist Device Used No (0 pt) Altered Elimination No (0 pt) Score/Fall Risk Level 0 - 2 = Low Risk Oriented to surroundings, Maintained a safe environment. Abuse screen: Denies threats or abuse. Denies injuries from another. Nutritional screening: No deficits noted. Tuberculosis screening: No symptoms or risk factors identified. Assessment: 13:45 Reassessment: Patient appears in no apparent distress at this time. Patient and/or db family updated on plan of care and expected duration. Pain level reassessed. Patient is alert, oriented x 3, equal unlabored respirations, skin warm/dry/pink. SEE TRIAGE FOR ASSESSMENT. 15:14 Reassessment: Patient appears in no apparent distress at this time. Patient and/or db family updated on plan of care and expected duration. Pain level reassessed. Patient is alert, oriented x 3, equal unlabored respirations, skin warm/dry/pink. Patient states feeling better. Patient states symptoms have improved. General: Appears in no apparent distress. comfortable, Behavior is calm, cooperative. Neuro: Level of Consciousness is awake, alert, obeys commands, Oriented to person, place, time, situation. Vital Signs: 13:21 BP 148 / 90; Pulse 72; Resp 18; Temp 98.4(O); Pulse Ox 98% ; Weight 83.46 kg; Height 5 db ft. 7 in. ; 15:00 BP 167 / 95; Pulse 71; Resp 18; Temp 98.4; Pulse Ox 98% on R/A; db 13:21 Body Mass Index 28.82 (83.46 kg, 170.18 cm) db ED Course: 13:26 Patient arrived in ED. ec2 13:26 Javier Lai MD is Attending Physician. ec2 13:37 Santa Pedraza, JOBY is Primary Nurse. db 13:40 Initial lab(s) drawn, by me, sent to lab. EKG done, by ED staff, reviewed by Javier Lai MD. Inserted saline lock: 20 gauge in right antecubital area, using aseptic technique. Blood collected. 13:41 Patient has correct armband on for positive identification. Bed in low position. Side [id number] rails up X 1. Side rails up X2. Client placed on continuous cardiac and pulse oximetry monitoring. NIBP monitoring applied. monitoring tech on. 13:43 Triage completed. db 13:43 Arm band placed on Patient placed in an exam room. db 14:25 XRAY Chest (1 view) In Process Unspecified. EDMS 15:14 No provider procedures requiring assistance completed. IV discontinued, intact, db bleeding controlled, No redness/swelling at site. 15:14 Provided Education on: DISCHARGE. db Administered Medications: No medications were administered Medication: 15:14 VIS not applicable for this client. db Outcome: 14:18 Discharge ordered by . morgan 15:14 Discharged to home ambulatory, db 15:14 Condition: stable 15:14 Discharge instructions given to patient, Instructed on discharge instructions, follow up and referral plans. 15:15 Patient left the ED. db Signatures: Dispatcher [employer] Santa Pardo RN RN db Corral, Edwin, MD MD ec2 Gopi Mendez [email or web address]
--- NOTE | 2024-02-02 14:29 | RAD REPORT ---
EXAM DESCRIPTION: RAD - Chest Single View - 02/02/2024 2:24 pm CLINICAL HISTORY: DYSPNEA Chest pain. COMPARISON: Chest Single View dated 11/18/2023; Chest Single View dated 11/17/2023; Chest Single View dated 11/08/2023; Chest Single View dated 11/06/2023 FINDINGS: Portable technique limits examination quality. The lungs are grossly clear. The heart is normal in size. No displaced fractures.Left axillary stent. IMPRESSION: No acute intrathoracic process suspected.
[2024-02-02 15:59] VITALS: BP 167/95; TEMP 98.4; O2SAT 98
--- NOTE | 2024-02-03 14:02 | EKG ---
Test Date: 2024-02-02 Test Time: 13:33:52 Correctional Officer Chief: DAVID MEASUREMENT RESULTS: Intervals: Rate: 72 NH: 196 QRSD: 82 QT: 408 QTc: 446 Andes: P: 61 NH: 196 QRS: 76 T: 97 INTERPRETIVE STATEMENTS: Sinus rhythm with fusion complexes Nonspecific ST abnormality Abnormal ECG Compared to ECG 11/17/2023 13:41:54 Fusion complex(es) now present ST (T wave) deviation now present Electronically Signed On 02-03-24 13:58:47 CDT by Charles Tracy
== END 2024-02-02 15:15 | disposition home or self-care (01) ==
LOC: ER 13:24
DX: R00.2 Palpitations (principal); I12.0 Hypertensive chronic kidney disease with stage 5 chronic kidney disease or end stage renal disease; N18.6 End stage renal disease; Z99.2 Dependence on renal dialysis; Z86.73 Personal history of transient ischemic attack (TIA), and cerebral infarction without residual deficits; Z91.013 Allergy to seafood
CPT/HCPCS: 36415; 71045; 80048; 85025; 93005; 99284

== ENCOUNTER 2024-03-19 17:15 | Emergency (ER) | payer OTHER ==
[2024-03-19 17:36] LABS: Absolute Eosinophils 0.2 K/uL (0-0.5); Absolute Lymphocytes (CBC) 1.3 K/uL (0.7-4.9); Absolute Monocytes 0.3 K/uL (0.1-1.3); Absolute Neutrophil 4.1 K/uL (1.8-8.0); Basophils % 0.6 % (0-1.3); Hematocrit 42.8 % (39.6-49.0); Hemoglobin 14.3 g/dL (13.6-17.9); Lymphocytes % 21.7 % (15.3-44.8); MCH 32.8 pg (27.0-35.0); MCHC 33.5 g/dL (32.0-36.0); MCV 98.1 fL (80-100); MPV 7.6 fL (7.6-11.3); Monocytes % 5.3 % (3.3-12.3); Neutrophils % 69.4 % (41.7-73.7); Nucleated Red Blood Cells % 0.1 % (0-0); Platelets 225 thou/uL (152-406); RBC Red Blood Cell Count 4.37 M/uL (4.33-5.43); Red Cell Distribution Width 14.8 % (12.1-15.2)
[2024-03-19 17:39] LABS: PT Prothrombin Time 12.8 SECONDS (9.4-12.5); Protime INR 1.17
[2024-03-19 18:04] LABS: Anion Gap 9.5 mEq/L (5.0-15.0); Potassium 3.5 mEq/L (3.5-5.1); Troponin High Sensitivity 10.4 pg/mL (<58.9)
--- NOTE | 2024-03-19 18:35 | RAD REPORT ---
EXAM DESCRIPTION: RAD - Chest Single View - 03/19/2024 6:27 pm CLINICAL HISTORY: CHEST PAIN Chest pain. COMPARISON: <Comparisons> FINDINGS: Portable technique limits examination quality. Mild interstitial pulmonary edema. The heart is mildly prominent size. No displaced fractures.Left-si ded stent material. IMPRESSION: Mild CHF is possible.
--- NOTE | 2024-03-19 18:43 | ER ---
Nurse's Notes [facility] Name: Ben Otto Age: 58 yrs Sex: Male : 1965 Arrival Date: 03/19/2024 Time: 17:15 Bed 20 Private MD: Diagnosis: Palpitations Presentation: 03/19 17:17 Chief complaint: EMS states: Resolved chest pain, was on his way home from [place] [id number] when he called EMS. Pain resolved by the time EMS got there. 17:17 Method Of Arrival: EMS: [place] [address] 17:31 Coronavirus screen: Vaccine status: Patient reports receiving the 2nd dose of the covid nj1 vaccine. Ebola Screen: Patient denies travel to an Ebola-affected area in the 21 days before illness onset. Initial Sepsis Screen: Does the patient meet any 2 criteria? No. Patient's initial sepsis screen is negative. Does the patient have a suspected source of infection? No. Patient's initial sepsis screen is negative. Risk Assessment: Do you want to hurt yourself or someone else? Patient reports no desire to harm self or others. Onset of symptoms was March 19, 2024. 17:31 Acuity: JEREMY 2 nj Historical: - Allergies: 17:37 SHELLFISH; nj1 - PMHx: 17:37 Congestive heart failure; CVA; left sided weakness; Dialysis; Hypertensive disorder; nj1 kidney disease; - Immunization history:: Client reports receiving the 2nd dose of the Covid vaccine. - Infectious Disease History:: Denies. - Social history:: Smoking status: Patient denies any tobacco usage or history of. Screenin:20 [facility] ED Fall Risk Assessment (Adult) History of falling in the last 3 months, nj including since admission No falls in past 3 months (0 pts) Confusion or Disorientation No (0 pts) Intoxicated or Sedated No (0 pts) Impaired Gait Yes (1 pt) Mobility Assist Device Used Yes (1 pt) Altered Elimination No (0 pt) Score/Fall Risk Level 0 - 2 = Low Risk Oriented to surroundings, Maintained a safe environment, Hourly rounding (assess needs \T\ fall precautionary measures) done. 17:20 Abuse screen: Denies threats or abuse. Denies injuries from another. Nutritional nj1 screening: No deficits noted. Tuberculosis screening: No symptoms or risk factors identified. Assessment: 17:20 General: Appears in no apparent distress. comfortable, Behavior is calm, cooperative, nj1 appropriate for age. 17:20 Pain: Denies pain. Neuro: Level of Consciousness is awake, alert, obeys commands, nj1 Oriented to person, place, time, situation, Left sided weakness per prior CVA.. Cardiovascular: Denies chest pain, Patient's skin is warm and dry. Respiratory: Airway is patent Respiratory effort is even, unlabored. 18:50 Reassessment: Patient appears in no apparent distress at this time. Patient is alert, nj1 oriented x 3, equal unlabored respirations, skin warm/dry/pink. Vital Signs: 17:31 BP 109 / 86; Pulse 83; Resp 14; Temp 98.3(O); Pulse Ox 99% on R/A; Weight 85.28 kg; nj1 Height 5 ft. 7 in. ; Pain 0/10; 18:50 BP 114 / 87; Pulse 88; Resp 16; Pulse Ox 99% ; nj1 17:31 Body Mass Index 29.44 (85.28 kg, 170.18 cm) nj 17:31 Pain Scale: Adult [facility] ED Course: 17:16 Patient arrived in ED. nj1 17:19 Javier Lai MD is Attending Physician. ec2 17:20 Patient has correct armband on for positive identification. Bed in low position. Call ut1 light in reach. Side rails up X 1. 17:20 Provided Education on: call light, fall precautions. Client placed on continuous [facility] cardiac and pulse oximetry monitoring. NIBP monitoring applied. quality assurance monitor chassis on. 17:25 Geovanna Lim, RN is Primary Nurse. nj1 17:31 Initial lab(s) drawn, by nh, sent to lab. Inserted saline lock: 20 gauge in right zm antecubital area, using aseptic technique. Blood collected. 17:31 Basic Metabolic Panel Sent. 17:31 CBC with Diff Sent. 17:31 NT PRO-BNP Sent. 17:31 PT-INR Sent. zm 17:31 Troponin HS Sent. 17:37 Triage completed. nj1 17:37 Arm band placed on. nj1 18:29 XRAY Chest (1 view) In Process Unspecified. EDMS 18:50 No provider procedures requiring assistance completed. nj1 18:50 IV discontinued, intact, bleeding controlled, Pressure dressing applied. nj1 Administered Medications: No medications were administered Medication: 18:50 VIS not applicable for this client. nj1 Outcome: 18:43 Discharge ordered by . ec2 18:50 Discharged to home ambulatory, nj1 18:50 Condition: stable 18:50 Discharge instructions given to patient, Instructed on discharge instructions, follow up and referral plans. safety practices, Demonstrated understanding of instructions, follow-up care, 18:52 Patient left the ED. nj1 Signatures: Dispatcher [employer] Carrie Monroy Norma, RN RN nj1 Javier Lai MD MD ec2
--- NOTE | 2024-03-19 18:43 | EDPHYS ---
Physician Documentation [facility] Name: Ben Otto Age: 58 yrs Sex: Male : 1965 Arrival Date: 03/19/2024 Time: 17:15 Bed 20 Private MD: ED Physician Javier Lai HPI: 03/19 17:34 This 58 yrs old Male presents to ER via EMS with complaints of Chest Pain. ec2 17:34 Patient arrives today for evaluation of palpitations. Patient states that he was ec2 undergoing dialysis, subsequently started feeling palpitations. States that he has been seen for similar complaints and have now resolved at this point. States that he is asymptomatic and has no other concerns. States that he completed his dialysis run.. Historical: - Allergies: 17:37 SHELLFISH; nj1 - PMHx: 17:37 Congestive heart failure; CVA; left sided weakness; Dialysis; Hypertensive disorder; nj1 kidney disease; - Immunization history:: Client reports receiving the 2nd dose of the Covid vaccine. - Infectious Disease History:: Denies. - Social history:: Smoking status: Patient denies any tobacco usage or history of. ROS: 17:34 Constitutional: as per hpi ec2 Exam: 17:34 Constitutional: GEN: NAD Head: atraumatic Eyes: EOMI Ears: External ears are ec2 normal. CV: regular rate LUNGS: no respiratory distress ABD: non-distended SKIN: no evidence of rashes MSK: no evidence of trauma NEURO: moves all extremities equally Vital Signs: 17:31 BP 109 / 86; Pulse 83; Resp 14; Temp 98.3(O); Pulse Ox 99% on R/A; Weight 85.28 kg; nj1 Height 5 ft. 7 in. ; Pain 0/10; 18:50 BP 114 / 87; Pulse 88; Resp 16; Pulse Ox 99% ; nj1 17:31 Body Mass Index 29.44 (85.28 kg, 170.18 cm) nj1 17:31 Pain Scale: Adult nj1 MDM: 17:29 Patient medically screened. ec2 17:34 Data reviewed: vital signs. ED course: Patient arrives today for palpitations. ec2 Examination remarkable for well-appearing nontoxic and patient was otherwise in no acute distress with reassuring examination. Will obtain lab work, EKG, chest x-ray. Differential diagnosis include electrolyte disturbance, arrhythmia.. 17:59 ED course: EKG independently reviewed and interpreted by me, shows normal sinus rhythm, ec2 rate of 71, no acute ST segment elevations, intervals are nonconcerning. PAC noted. . 18:05 ED course: Metabolic profile shows appropriate electrolytes, expected renal ec2 dysfunction, BNP elevated at 4500, CBC is reassuring, troponin is within normal ranges. . 18:28 ED course: Chest x-ray independently reviewed and interpreted by me, shows no acute ec2 intrathoracic process. On reassessment patient is well-appearing in no acute distress, no respiratory distress, no hypoxia or work of breathing. Will discharge home with return precautions given. . 18:46 ED course: MDM: Differential diagnosis as documented above in ED course; All lab tests ec2 ordered and reviewed as documented above; Independent interpretation of tests: EKG as above; imaging as above; . 03/19 17:19 Order name: Basic Metabolic Panel; Complete Time: 18:05 ec2 03/19 17:19 Order name: CBC with Diff; Complete Time: 18:05 ec2 03/19 17:19 Order name: NT PRO-BNP; Complete Time: 18:05 ec2 03/19 17:19 Order name: PT-INR; Complete Time: 18:05 ec2 03/19 17:19 Order name: Troponin HS; Complete Time: 18:05 ec2 03/19 17:19 Order name: XRAY Chest (1 view); Complete Time: 18:43 ec2 03/19 17:19 Order name: Cardiac monitoring; Complete Time: 17:39 ec2 03/19 17:19 Order name: EKG - Nurse/Tech; Complete Time: 17:57 ec2 03/19 17:19 Order name: IV Saline Lock; Complete Time: 17:31 ec2 03/19 17:19 Order name: Labs collected and sent; Complete Time: 17:31 ec2 03/19 17:19 Order name: O2 Per Protocol; Complete Time: 17:39 ec2 03/19 17:19 Order name: O2 Sat Monitoring; Complete Time: 17:39 ec2 Administered Medications: No medications were administered Disposition Summary: 03/19/24 18:43 Discharge Ordered Notes: Location: Home ec2 Condition: Stable ec2 Diagnosis - Palpitations ec2 Followup: ec2 - With: Private Physician - When: - Reason: Re-evaluation by your physician Discharge Instructions: - Discharge Summary Sheet ec2 - Palpitations ec2 Forms: - Medication Reconciliation Form ec2 - Antibiotic Education ec2 - Prescription Opioid Use ec2 - Patient Portal Instructions ec2 - Leadership Thank You Letter ec2 Signatures: Dispatcher [employer] Geovanna Hall RN RN nj1 Javier Lai MD MD ec2 Corrections: (The following items were deleted from the chart) 17:19 17:19 Chest Single View+[email or web address] ordered. LA NENAMT VIKTORIA
[2024-03-19 20:13] VITALS: BP 109/86; TEMP 98.3; O2SAT 99
--- NOTE | 2024-03-21 13:31 | EKG ---
Test Date: 2024-03-19 Test Time: 17:52:36 [employer]: LARA MEASUREMENT RESULTS: Intervals: Rate: 71 [place]: 204 QRSD: 98 QT: 378 QTc: 410 [place]: P: 76 [place]: 204 QRS: 77 T: 63 INTERPRETIVE STATEMENTS: Sinus rhythm with premature atrial complexes Otherwise normal ECG Compared to ECG 02/16/2024 17:54:30 Atrial premature complex(es) now present Electronically Signed On 03-21-24 13:27:50 CDT by Charles Tracy
== END 2024-03-19 18:52 | disposition home or self-care (01) ==
LOC: ER 17:15
DX: R00.2 Palpitations (principal); R07.9 Chest pain, unspecified; Z99.2 Dependence on renal dialysis
CPT/HCPCS: 36415; 71045; 80048; 83880; 84484; 85025; 85610; 93005; 99284

== ENCOUNTER 2024-03-25 13:53 | Emergency (ER) | payer OTHER ==
[2024-03-25] MEDS ORDERED: NA CHLORIDE 0.9% 0 ML ONE (15:11)
[2024-03-25] MEDS ORDERED: NA CHLORIDE 0.9% 500 ML ONE (15:24)
[2024-03-25 16:02] LABS: Absolute Basophils 0.1 K/uL (0-0.5); Absolute Eosinophils 0.2 K/uL (0-0.5); Absolute Lymphocytes (CBC) 2.1 K/uL (0.7-4.9); Absolute Monocytes 0.5 K/uL (0.1-1.3); Basophils % 0.7 % (0-1.3); Eosinophils % 2.1 % (0-4.4); Hematocrit 37.1 % (39.6-49.0); Hemoglobin 12.4 g/dL (13.6-17.9); Lymphocytes % 26.6 % (15.3-44.8); MCH 32.9 pg (27.0-35.0); MCHC 33.4 g/dL (32.0-36.0); MCV 98.4 fL (80-100); MPV 8.2 fL (7.6-11.3); Monocytes % 6.6 % (3.3-12.3); Platelets 233 thou/uL (152-406); RBC Red Blood Cell Count 3.77 M/uL (4.33-5.43); Red Cell Distribution Width 14.8 % (12.1-15.2)
[2024-03-25 16:33] LABS: ALT/SGPT 22 U/L (16-61); Albumin 3.2 g/dL (3.4-5.0); Albumin/Globulin Ratio 0.7 (1.1-1.8); Alkaline Phosphatase 72 U/L (45-117); Anion Gap 8.8 mEq/L (5.0-15.0); BUN Blood Urea Nitrogen 17 mg/dL (7-18); Bicarbonate 29 mEq/L (21-32); Bilirubin Total 0.6 mg/dL (0.2-1.0); Creatine Phosphokinase 96 U/L (39-308); Globulin 4.3 g/dL (2.3-3.5); Glomerular Filtration Rate 8 ml/min (=/>90); Glucose Level 83 mg/dL (74-106); Protein, Total 7.5 g/dL (6.4-8.2); Sodium Level 133 mEq/L (136-145); Troponin High Sensitivity 8.4 pg/mL (<58.9)
[2024-03-25 16:36] LABS: AST/SGOT 25 U/L (15-37); Bilirubin Direct < 0.2 mg/dL (0-0.2); Bilirubin Indirect, Calculated 0.4 mg/dL (0.2-0.8); Magnesium 2.3 mg/dL (1.6-2.4); Potassium 4.8 mEq/L (3.5-5.1)
--- NOTE | 2024-03-25 16:52 | EDPHYS ---
Physician Documentation [facility] Name: Ben Otto Age: 58 yrs Sex: Male : 1965 Arrival Date: 03/25/2024 Time: 13:53 Bed DX1 Private MD: ED Physician Elton Aguayo HPI: 03/25 15:21 This 58 yrs old Male presents to ER via EMS with complaints of Weakness - Legs.rt 15:21 Patient presents to the ED with generalized weakness, muscle cramping. Patient states rt that he has been walking around for several hours today. States that his vision was somewhat blurred. Denies other acute complaints at this time, symptoms are moderate in severity, no other aggravating alleviating factors.. Historical: - Allergies: 14:10 SHELLFISH; ll1 - PMHx: 14:10 Congestive heart failure; CVA; left sided weakness; Dialysis; Hypertensive disorder; ll1 kidney disease; - Immunization history:: Adult Immunizations up to date. - Infectious Disease History:: Denies. - Social history:: Smoking status: Patient denies any tobacco usage or history of. - Family history:: not pertinent. ROS: 15:21 Cardiovascular: Negative for chest pain, palpitations, and edema, Respiratory: Negative rt for shortness of breath, cough, wheezing, and pleuritic chest pain, Abdomen/GI: Negative for abdominal pain, nausea, vomiting, diarrhea, and constipation, Skin: Negative for injury, rash, and discoloration, 15:21 Constitutional: Positive for body aches, Negative for fever, Exam: 15:21 Constitutional: This is a well developed, well nourished patient who is awake, alert, rt and in no acute distress. Head/Face: Normocephalic, atraumatic. Chest/axilla: Normal chest wall appearance and motion. Nontender with no deformity. No lesions are appreciated. Cardiovascular: Regular rate and rhythm with a normal S1 and S2. No gallops, murmurs, or rubs. Normal PMI, no JVD. No pulse deficits. Respiratory: Lungs have equal breath sounds bilaterally, clear to auscultation and percussion. No rales, rhonchi or wheezes noted. No increased work of breathing, no retractions or nasal flaring. Abdomen/GI: Soft, non-tender, with normal bowel sounds. No distension or tympany. No guarding or rebound. No evidence of tenderness throughout. Skin: Warm, dry with normal turgor. Normal color with no rashes, no lesions, and no evidence of cellulitis. MS/ Extremity: Pulses equal, no cyanosis. Neurovascular intact. Full, normal range of motion. Neuro: Awake and alert, GCS 15, oriented to person, place, time, and situation. Cranial nerves II-XII grossly intact. Motor strength 5/5 in all extremities. Sensory grossly intact. Cerebellar exam normal. Normal gait. Vital Signs: 14:11 BP 118 / 68; Pulse 53; Resp 17; Temp 97.2(TE); Pulse Ox 100% on R/A; Weight 85.28 kg; ll1 Height 5 ft. 7 in. ; Pain 1/10; 14:11 Body Mass Index 29.45 (85.28 kg, 170.18 cm) ll1 14:11 Pain Scale: Adult ll1 MDM: 14:13 Patient medically screened. rt 16:52 Data reviewed: vital signs, nurses notes, lab test result(s). Consideration of rt Admission/Observation Escalation of care including admission/observation considered. Stable vital signs, unremarkable labs, no indications for admission at this time, patient is stable for outpatient care.. I considered the following discharge prescriptions or medication management in the emergency department Medications were administered in the Emergency Department. See MAR. Care significantly affected by the following chronic conditions: Chronic Kidney Disease. Counseling: I had a detailed discussion with the patient and/or guardian regarding the historical points, exam findings, and any diagnostic results supporting the discharge/admit diagnosis, lab results, the need for outpatient follow up. Response to treatment: the patient's symptoms have markedly improved after treatment. 03/25 14:12 Order name: Basic Metabolic Panel; Complete Time: 16:38 rt 03/25 14:12 Order name: CBC with Diff; Complete Time: 16:38 rt 03/25 14:12 Order name: LFT's; Complete Time: 16:38 rt 03/25 14:12 Order name: Magnesium; Complete Time: 16:38 rt 03/25 14:12 Order name: Troponin HS; Complete Time: 16:38 rt 03/25 14:12 Order name: CPK; Complete Time: 16:38 rt 03/25 14:12 Order name: EKG - Nurse/Tech; Complete Time: 17:15 rt 03/25 14:12 Order name: IV Saline Lock; Complete Time: 15:55 rt 03/25 14:12 Order name: Labs collected and sent; Complete Time: 15:55 rt Administered Medications: 15:13 CANCELLED (Duplicate Order): ns 0.9% 1000 ml IV at 1 bolus Per protocol; 1000 mL bolus rt 15:55 Drug: NS 0.9% IV 500 ml IV at bolus once Route: IV; Rate: bolus; Site: right cm10 antecubital; 17:14 Follow up: IV Status: Completed infusion; IV Intake: 500ml aa5 Disposition Summary: 03/25/24 16:51 Discharge Ordered Notes: Location: Home rt Problem: new rt Symptoms: have improved rt Condition: Stable rt Diagnosis - Weakness rt Followup: rt - With: Private Physician - When: 2 - 3 days - Reason: Discharge Instructions: - Discharge Summary Sheet rt - Weakness rt Forms: - Medication Reconciliation Form rt - Antibiotic Education rt - Prescription Opioid Use rt - Patient Portal Instructions rt - Leadership Thank You Letter rt Signatures: Dispatcher [employer] Lynda Crawford, RN RN ll1 Elton Aguayo MD MD rt Julieta Otto RN RN cm10 Brissa Santiago RN aa5 Corrections: (The following items were deleted from the chart) 15:13 14:12 NS 0.9% IV 1000 ml IV at 1 bolus Per protocol; 1000 mL bolus ordered. rt rt 17:15 14:12 Cardiac monitoring ordered. rt aa5 17:15 14:12 Oxygen Per Protocol ordered. rt aa5 17:15 14:12 O2 Sat Monitoring ordered. rt aa5
--- NOTE | 2024-03-25 16:52 | ER ---
Nurse's Notes [facility] Name: Ben Otto Age: 58 yrs Sex: Male : 1965 Arrival Date: 03/25/2024 Time: 13:53 Bed DX1 Private MD: Diagnosis: Weakness Presentation: 03/25 14:09 Chief complaint: Patient states: Walking outside since 10 AM. Feels weak, dehydrated ll1 now. VSS for EMS. Coronavirus screen: Client denies travel out of the [place] in the last 14 days. At this time, the client does not indicate any symptoms associated with coronavirus-19. Ebola Screen: Patient denies travel to an Ebola-affected area in the 21 days before illness onset. No acute neurological deficit is noted. Initial Sepsis Screen: Does the patient meet any 2 criteria? No. Patient's initial sepsis screen is negative. Does the patient have a suspected source of infection? No. Patient's initial sepsis screen is negative. Risk Assessment: Do you want to hurt yourself or someone else? Patient reports no desire to harm self or others. Onset of symptoms was March 25, 2024. 14:09 Method Of Arrival: EMS ll1 14:09 Acuity: JEREMY 3 ll1 Triage Assessment: 14:10 General: Appears uncomfortable, Behavior is calm, cooperative, appropriate for age. ll1 Pain: Denies pain. Neuro: Reports dizziness, weakness feels dehydrated. Musculoskeletal: Reports weakness in right leg and left leg pain in right leg and left leg. Stroke Activation: Symtpom onset >3 hours and < 6 hours Physician: ED Attending; Name: ; Notified At: ; Arrived At: Physician: Mid-Level Provider; Name: ; Notified At: ; Arrived At: Physician: [not used]; Name: ; Notified At: ; Arrived At: Physician: [not used]; Name: ; Notified At: ; Arrived At: Physician: [not used]; Name: ; Notified At: ; Arrived At: Historical: - Allergies: 14:10 SHELLFISH; ll1 - PMHx: 14:10 Congestive heart failure; CVA; left sided weakness; Dialysis; Hypertensive disorder; ll1 kidney disease; - Immunization history:: Adult Immunizations up to date. - Infectious Disease History:: Denies. - Social history:: Smoking status: Patient denies any tobacco usage or history of. - Family history:: not pertinent. Assessment: 17:15 Reassessment: Patient is alert, oriented x 3, equal unlabored respirations, skin aa5 warm/dry/pink. Vital Signs: 14:11 BP 118 / 68; Pulse 53; Resp 17; Temp 97.2(TE); Pulse Ox 100% on R/A; Weight 85.28 kg; ll1 Height 5 ft. 7 in. ; Pain 1/; 14:11 Body Mass Index 29.45 (85.28 kg, 170.18 cm) ll1 14:11 Pain Scale: Adult ll1 ED Course: 13:55 Patient arrived in ED. mg5 13:59 Elton Aguayo MD is Attending Physician. rt 14:10 Triage completed. ll1 14:10 Arm band placed on. ll1 15:11 Missed attempt(s): 24 gauge in right antecubital area. bc6 15:21 Missed attempt(s): 22 gauge in right antecubital area. Bleeding controlled, band aid em1 applied, catheter tip intact. 15:55 Basic Metabolic Panel Sent. cm10 15:55 LFT's Sent. cm10 15:55 CPK Sent. cm10 15:55 Accessed ,peripheral vein via ultrasound, utilizing static ultrasound technique Clean \T\ cm10 dry. Good blood return. Flushes easily. 20G RAC. Missed attempt(s): 20 gauge in right forearm. Bleeding controlled, band aid applied, catheter tip intact. 17:15 No provider procedures requiring assistance completed. IV discontinued, intact, aa5 bleeding controlled, No redness/swelling at site. Pressure dressing applied. Administered Medications: 15:13 CANCELLED (Duplicate Order): ns 0.9% 1000 ml IV at 1 bolus Per protocol; 1000 mL bolus rt 15:55 Drug: NS 0.9% IV 500 ml IV at bolus once Route: IV; Rate: bolus; Site: right cm10 antecubital; 17:14 Follow up: IV Status: Completed infusion; IV Intake: 500ml aa5 Intake: 17:14 IV: 500ml; Total: 500ml. aa5 Outcome: 16:51 Discharge ordered by . rt 17:16 Discharged to home ambulatory, with cane aa5 17:16 Condition: stable 17:16 Discharge instructions given to patient, Instructed on discharge instructions, follow up and referral plans. Demonstrated understanding of instructions, follow-up care, 17:16 Patient left the ED. aa5 Signatures: Zach Otto em1 Brissa Santiago, RN RN aa5 Lynda Harper RN RN ll1 Elton Aguayo MD MD rt Estephania Laws bc6 Julieta Otto RN RN cm10 Bria Maria mg5 Corrections: (The following items were deleted from the chart) 14:13 14:09 Chief complaint: Patient states: Walking outside since 10 AM. Feels weak, ll1 dehydrated now. VSS for EMS. ll1 14:13 14:11 Resp 17bpm; 85.28 kg; Height 5 ft. 7 in.; BMI: 29.4; Pain 10/08, Adult; ll1 ll1
[2024-03-25 17:20] VITALS: BP 118/68; TEMP 97.2; O2SAT 100
== END 2024-03-25 17:16 | disposition home or self-care (01) ==
LOC: ER 13:53
DX: R53.1 Weakness (principal); Z91.013 Allergy to seafood
CPT/HCPCS: 85025; 80048; 36415; 83735; 82550; 80076; 84484; 96360; 99284; J7040; J7030

== ENCOUNTER 2024-04-05 22:34 | Emergency (ER) | payer OTHER ==
[2024-04-06 00:37] LABS: PT Prothrombin Time 12.5 SECONDS (9.4-12.5); Protime INR 1.14
[2024-04-06 01:21] LABS: Albumin 3.4 g/dL (3.4-5.0); Albumin/Globulin Ratio 0.8 (1.1-1.8); Anion Gap 8.3 mEq/L (5.0-15.0); Bilirubin Direct 0.2 mg/dL (0-0.2); Bilirubin Indirect, Calculated 0.2 mg/dL (0.2-0.8); Bilirubin Total 0.4 mg/dL (0.2-1.0); Globulin 4.2 g/dL (2.3-3.5); Magnesium 2.3 mg/dL (1.6-2.4); Potassium 3.3 mEq/L (3.5-5.1); Protein, Total 7.6 g/dL (6.4-8.2); Troponin High Sensitivity 9.7 pg/mL (<58.9)
[2024-04-06 01:51] LABS: Hematocrit 30.5 % (39.6-49.0); Hemoglobin 10.2 g/dL (13.6-17.9); MCHC 33.3 g/dL (32.0-36.0); Platelets 188 thou/uL (152-406); RBC Red Blood Cell Count 3.08 M/uL (4.33-5.43)
[2024-04-06 01:52] LABS: Absolute Eosinophils 0.3 K/uL (0-0.5); Absolute Lymphocytes (CBC) 2.8 K/uL (0.7-4.9); Absolute Monocytes 0.7 K/uL (0.1-1.3); Absolute Neutrophil 5.6 K/uL (1.8-8.0); Basophils % 0.4 % (0-1.3); Eosinophils % 3.6 % (0-4.4); Lymphocytes % 29.4 % (15.3-44.8); MPV 9.6 fL (7.6-11.3); Monocytes % 7.5 % (3.3-12.3); Neutrophils % 59.1 % (41.7-73.7); Red Cell Distribution Width 14.4 % (12.1-15.2)
--- NOTE | 2024-04-06 01:55 | EDPHYS ---
Physician Documentation [facility] Name: Ben Otto Age: 58 yrs Sex: Male : 1965 Arrival Date: 04/05/2024 Time: 22:34 Bed 16 Private MD: ED Physician Domo Plummer HPI: 04/06 01:19 This 58 yrs old Male presents to ER via EMS with complaints of dizzy and weak. sp3 01:19 58-year-old male with a history of end-stage renal disease on dialysis, hypertension, sp3 CVA, CHF that presents to the ED with recurrent generalized weakness" dizziness which is now resolved since he has been here. Patient states that he feels like he "got overheated". He currently denies any fever, URI symptoms, cough, shortness of breath, chest pain, abdominal pain, vomiting, diarrhea, rash, known sick contacts, travel history, prolonged immobilization, or any other signs or symptoms on ROS at this time.. Historical: - Allergies: 04/05 23:02 SHELLFISH; rg5 - Home Meds: 23:02 Metoprolol Tartrate Oral [Active]; rg5 - PMHx: 23:02 Congestive heart failure; CVA; left sided weakness; Hypertensive disorder; Dialysis; rg5 kidney disease; - Immunization history:: Adult Immunizations up to date, Client reports receiving the 2nd dose of the Covid vaccine. - Infectious Disease History:: Denies. - Social history:: Smoking status: Patient/guardian denies using tobacco, the patient reports quitting approximately 10 years ago. ROS: 04/06 01:20 Constitutional: Negative for fever, chills, and weight loss, Eyes: Negative for injury, sp3 pain, redness, and discharge, Neck: Negative for injury, pain, and swelling, Cardiovascular: Negative for chest pain, palpitations, and edema, Respiratory: Negative for shortness of breath, cough, wheezing, and pleuritic chest pain, Abdomen/GI: Negative for abdominal pain, nausea, vomiting, diarrhea, and constipation, Back: Negative for injury and pain, MS/Extremity: Negative for injury and deformity, Skin: Negative for injury, rash, and discoloration, Neuro: Negative for headache, weakness, numbness, tingling, and seizure, Psych: Negative for depression, anxiety, suicide ideation, homicidal ideation, and hallucinations, Allergy/Immunology: Negative for hives, rash, and allergies, Endocrine: Negative for neck swelling, polydipsia, polyuria, polyphagia, and marked weight changes, All other systems are negative, Exam: 01:20 Constitutional: This is a well developed, well nourished patient who is awake, alert, sp3 and in no acute distress. Head/Face: Normocephalic, atraumatic. Eyes: Pupils equal round and reactive to light, extra-ocular motions intact. Lids and lashes normal. Conjunctiva and sclera are non-icteric and not injected. Cornea within normal limits. Periorbital areas with no swelling, redness, or edema. ENT: Nares patent. No nasal discharge, no septal abnormalities noted. External auditory canals are clear. Oropharynx with no redness, swelling, or masses, exudates, or evidence of obstruction, uvula midline. Mucous membranes moist. Neck: Trachea midline, no thyromegaly or masses palpated, and no cervical lymphadenopathy. Supple, full range of motion without nuchal rigidity, or vertebral point tenderness. No Meningismus. Chest/axilla: Normal chest wall appearance and motion. Nontender with no deformity. No lesions are appreciated. Cardiovascular: Regular rate and rhythm with a normal S1 and S2. No gallops, murmurs, or rubs. Normal PMI, no JVD. No pulse deficits. Respiratory: Lungs have equal breath sounds bilaterally, clear to auscultation and percussion. No rales, rhonchi or wheezes noted. No increased work of breathing, no retractions or nasal flaring. Abdomen/GI: Soft, non-tender, with normal bowel sounds. No distension or tympany. No guarding or rebound. No evidence of tenderness throughout. Back: No spinal tenderness. No costovertebral tenderness. Full range of motion. Skin: Warm, dry with normal turgor. Normal color with no rashes, no lesions, and no evidence of cellulitis. MS/ Extremity: Pulses equal, no cyanosis. Neurovascular intact. Full, normal range of motion. Neuro: Awake and alert, GCS 15, oriented to person, place, time, and situation. Cranial nerves II-XII grossly intact. Motor strength 5/5 in all extremities. Sensory grossly intact. Cerebellar exam normal. Normal gait. Psych: Awake, alert, with orientation to person, place and time. Behavior, mood, and affect are within normal limits. 01:20 ECG was reviewed by the Attending Physician. EKG demonstrates normal sinus rhythm at 60 bpm with first-degree AV block of 220 ms, occasional PAC, normal axis, normal QRS, normal ST's ST segments without evidence of acute ischemia. Vital Signs: 04/05 22:54 BP 115 / 58; Pulse 78; Resp 19; Temp 98; Pulse Ox 100% on R/A; Weight 84 kg; Height 5 rg5 ft. 8 in. ; Pain 0/10; 23:20 BP 104 / 67; Pulse 60; Resp 19; Temp 98; Pulse Ox 100% on R/A; rg5 04/06 00:58 BP 114 / 77; Pulse 52; Resp 18; Temp 98; Pulse Ox 97% on R/A; rg5 01:50 BP 124 / 80; Pulse 51; Resp 17; Temp 98; Pulse Ox 99% on R/A; rg5 01:55 BP 138 / 92; Pulse 74; Resp 16; Temp 98; Pulse Ox 97% ; Pain 0/10; bm8 04/05 22:54 Body Mass Index 28.16 (84.00 kg, 172.72 cm) rg5 04/05 22:54 Pain Scale: Adult rg5 01:55 Pain Scale: Adult bm8 Rumford Coma Score: 04/05 23:42 Eye Response: spontaneous(4). Motor Response: obeys commands(6). Verbal Response: rg5 oriented(5). Total: 15. 04/06 01:55 Eye Response: spontaneous(4). Motor Response: obeys commands(6). Verbal Response: bm8 oriented(5). Total: 15. MDM: 04/05 23:07 Patient medically screened. sp3 04/06 01:21 Data reviewed: vital signs, nurses notes, lab test result(s), EKG, radiologic studies. sp3 ED course: 58-year-old male with vague symptoms and compared complex history. Differential diagnosis includes heat exhaustion, electrolyte disturbance, ACS though unlikely, infectious process, among others. Workup will include EKG, chest x-ray, laboratory values and general supportive care. Vital signs are currently normal. Patient feels much better and if workup is negative we will safely discharged home.. 01:54 ED course: Full workup negative and patient is improved. We will safely discharge him sp3 home at this time.. 04/05 23:07 Order name: Basic Metabolic Panel; Complete Time: 01:43 sp3 04/05 23:07 Order name: CBC with Diff; Complete Time: 01:53 sp3 04/05 23:07 Order name: LFT's; Complete Time: 01:43 sp3 04/05 23:07 Order name: Magnesium; Complete Time: 01:43 sp3 04/05 23:07 Order name: NT PRO-BNP; Complete Time: 01:43 sp3 04/05 23:07 Order name: PT-INR; Complete Time: 01:05 sp3 04/05 23:07 Order name: Troponin HS; Complete Time: 01:43 sp3 04/05 23:07 Order name: XRAY Chest (1 view) sp3 04/05 23:07 Order name: Cardiac monitoring; Complete Time: 23:27 sp3 04/05 23:07 Order name: EKG - Nurse/Tech; Complete Time: 23:27 sp3 04/05 23:07 Order name: IV Saline Lock; Complete Time: 23:36 sp3 04/05 23:07 Order name: Labs collected and sent; Complete Time: 23:36 sp3 04/05 23:07 Order name: O2 Per Protocol; Complete Time: 23:36 sp3 04/05 23:07 Order name: O2 Sat Monitoring; Complete Time: 23:28 sp3 Administered Medications: No medications were administered Disposition Summary: 04/06/24 01:55 Discharge Ordered Notes: Location: Home sp3 Condition: Stable sp3 Diagnosis - Generalized weakness, dizziness, resolved sp3 Followup: sp3 - With: Private Physician - When: Upon discharge from the Emergency Department - Reason: Continuance of care Discharge Instructions: - Discharge Summary Sheet sp3 - Dizziness sp3 Forms: - Medication Reconciliation Form sp3 - Antibiotic Education sp3 - Prescription Opioid Use sp3 - Patient Portal Instructions sp3 - Leadership Thank You Letter sp3 Signatures: Dispatcher [employer] Domo Newberry MD MD sp3 Phill Felix RN RN rg5
--- NOTE | 2024-04-06 01:55 | ER ---
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 Coronavirus screen: Vaccine status: Patient reports receiving the 2nd dose of the covid vaccine. Client denies travel out of the [place] in the last 14 days. Ebola Screen: Patient negative for fever greater than or equal to 101.5 degrees Fahrenheit, and additional compatible Ebola Virus Disease symptoms. Initial Sepsis Screen: Does the patient meet any 2 criteria? No. Patient's initial sepsis screen is negative. Does the patient have a suspected source of infection? No. Patient's initial sepsis screen is negative. Risk Assessment: Do you want to hurt yourself or someone else? Patient reports no desire to harm self or others. Onset of symptoms was April 05, 2024. 22:54 Method Of Arrival: EMS: [facility] rg5 22:54 Acuity: JEREMY 3 rg5 Triage Assessment: 23:03 General: Appears in no apparent distress. comfortable, Behavior is calm, cooperative, rg5 appropriate for age. Pain: Denies pain. Neuro: Level of Consciousness is awake, alert, obeys commands, Oriented to person, place, time, Moves all extremities. Weakness in left arm(s) leg(s) Gait is unsteady, Cardiovascular: Reports palpitations, Denies chest pain, Capillary refill < 3 seconds. Respiratory: Airway is patent Trachea midline Respiratory effort is even, unlabored, relaxed. GI: Abdomen is round. : No signs and/or symptoms were reported regarding the genitourinary system. Derm: Skin is intact, Skin is dry, Skin is pink, warm \T\ dry. Skin temperature is warm. Musculoskeletal: Range of motion:. Historical: - Allergies: 23:02 SHELLFISH; rg5 - Home Meds: 23:02 Metoprolol Tartrate Oral [Active]; rg5 - PMHx: 23:02 Congestive heart failure; CVA; left sided weakness; Hypertensive disorder; Dialysis; rg5 kidney disease; - Immunization history:: Adult Immunizations up to date, Client reports receiving the 2nd dose of the Covid vaccine. - Infectious Disease History:: Denies. - Social history:: Smoking status: Patient/guardian denies using tobacco, the patient reports quitting approximately 10 years ago. Screenin:[facility] ED Fall Risk Assessment (Adult) History of falling in the last 3 months, rg5 including since admission No falls in past 3 months (0 pts) Confusion or Disorientation No (0 pts) Intoxicated or Sedated No (0 pts) Impaired Gait Yes (1 pt) Mobility Assist Device Used Yes (1 pt) Altered Elimination No (0 pt) Score/Fall Risk Level 0 - 2 = Low Risk. Abuse screen: Denies threats or abuse. Nutritional screening: No deficits noted. Tuberculosis screening: No symptoms or risk factors identified. Assessment: 23:42 Reassessment: Patient and/or family updated on plan of care and expected duration. Pain rg5 level reassessed. Patient is alert, oriented x 3, equal unlabored respirations, skin warm/dry/pink. 04/06 01:52 Reassessment: Patient and/or family updated on plan of care and expected duration. Pain rg5 level reassessed. Patient is alert, oriented x 3, equal unlabored respirations, skin warm/dry/pink. 01:55 Reassessment: Patient appears in no apparent distress at this time. Patient and/or bm8 family updated on plan of care and expected duration. Pain level reassessed. Patient is alert, oriented x 3, equal unlabored respirations, skin warm/dry/pink. Patient denies pain at this time. Patient states feeling better. Patient states symptoms have improved. Pain: Denies pain. Cardiovascular: No deficits noted. Denies chest pain, lightheadedness, palpitations, shortness of breath, Heart tones S1 S2 present Capillary refill < 3 seconds Patient's skin is warm and dry. Respiratory: Airway is patent Respiratory effort is even, unlabored, Respiratory pattern is regular, symmetrical, Breath sounds are clear bilaterally. GI: No signs and/or symptoms were reported involving the gastrointestinal system. : No signs and/or symptoms were reported regarding the genitourinary system. EENT: No signs and/or symptoms were reported regarding the EENT system. Derm: No signs and/or symptoms reported regarding the dermatologic system. Musculoskeletal: No signs and/or symptoms reported regarding the musculoskeletal system. Vital Signs: 04/05 22:54 BP 115 / 58; Pulse 78; Resp 19; Temp 98; Pulse Ox 100% on R/A; Weight 84 kg; Height 5 rg5 ft. 8 in. ; Pain 0/10; 23:20 BP 104 / 67; Pulse 60; Resp 19; Temp 98; Pulse Ox 100% on R/A; rg5 04/06 00:58 BP 114 / 77; Pulse 52; Resp 18; Temp 98; Pulse Ox 97% on R/A; rg5 01:50 BP 124 / 80; Pulse 51; Resp 17; Temp 98; Pulse Ox 99% on R/A; rg5 01:55 BP 138 / 92; Pulse 74; Resp 16; Temp 98; Pulse Ox 97% ; Pain 0/10; bm8 04/05 22:54 Body Mass Index 28.16 (84.00 kg, 172.72 cm) rg5 04/05 22:54 Pain Scale: Adult rg5 01:55 Pain Scale: Adult bm8 Amanda Coma Score: 04/05 23:42 Eye Response: spontaneous(4). Motor Response: obeys commands(6). Verbal Response: rg5 oriented(5). Total: 15. 04/06 01:55 Eye Response: spontaneous(4). Motor Response: obeys commands(6). Verbal Response: bm8 oriented(5). Total: 15. ED Course: 04/05 22:48 Patient arrived in ED. kmf 22:54 Phill Felix, RN is Primary Nurse. rg5 23:02 Triage completed. rg5 23:03 Arm band placed on right wrist. rg5 23:04 Domo Plummer MD is Attending Physician. sp3 23:20 Patient has correct armband on for positive identification. Bed in low position. Call rg5 light in reach. Side rails up X 1. 23:20 No provider procedures requiring assistance completed. rg5 23:38 Initial lab(s) drawn, by me, sent to lab. EKG done, by ED staff, reviewed by Domo Plummer MD X-ray(s) taken. Inserted saline lock: 20 gauge in right antecubital area, using aseptic technique. Blood collected. 23:57 XRAY Chest (1 view) In Process Unspecified. EDMS 04/06 01:55 Provided Education on:. Client placed on continuous cardiac and pulse oximetry bm8 monitoring. NIBP monitoring applied. site monitor on. Pulse ox on. NIBP on. Door closed. Warm blanket given. Verbal reassurance given. Head of bed elevated. 02:27 IV discontinued, intact, bleeding controlled, No redness/swelling at site. Pressure rg5 dressing applied. Administered Medications: No medications were administered Medication: 04/05 23:20 VIS not applicable for this client. rg5 Outcome: 04/06 01:55 Discharge ordered by . sp3 02:27 Discharged to home via wheelchair, rg5 02:27 Condition: stable 02:27 Discharge instructions given to patient, 02:28 Patient left the ED. rg5 Signatures: Dispatcher [employer] EDWI Domo Plummer MD MD sp3 Cristy Hearn Brad RN RN bm8 Phill Felix RN RN rg5
[2024-04-06 02:48] VITALS: TEMP 98
[2024-04-06 03:11] VITALS: BP 138/92; O2SAT 97
--- NOTE | 2024-04-06 12:42 | RAD REPORT ---
EXAM DESCRIPTION: RAD - Chest Single View - 04/05/2024 11:56 pm CLINICAL HISTORY: 8 years Male, Weakness. COMPARISON: XR Chest 03/19/2024 (report only). IMPRESSION: No focal lung consolidation. No pleural effusion. No pneumothorax. Cardiomediastinal silhouette is within normal limits. No acute osseous abnormality. Prior vascular stenting in the left subclavian/axillary Electronically signed by: Aries Hayes DO 04/06/2024 12:35 AM CDT RP 9 Due to temporary technical issues with the PACS/Fluency reporting system, reports are being signed by the in house radiologist without review as a courtesy to ensure prompt reporting. The interpreting r adiologist is fully responsible for the content of the report.
--- NOTE | 2024-04-07 12:13 | EKG ---
Test Date: 2024-04-05 Test Time: 23:20:55 Signal Maintenance Technician: LIANNE MEASUREMENT RESULTS: Intervals: Rate: 58 PA: 220 QRSD: 90 QT: 432 QTc: 424 [place]: P: 102 PA: 220 QRS: 71 T: 50 INTERPRETIVE STATEMENTS: Sinus bradycardia with 1st degree AV block with premature supraventricular complexes Otherwise normal ECG Compared to ECG 03/19/2024 17:52:36 First degree AV block now present Sinus rhythm no longer present Electronically Signed On 04-07-24 12:11:00 CDT by Ha Garcia
== END 2024-04-06 02:28 | disposition home or self-care (01) ==
LOC: ER 22:34
DX: R53.1 Weakness (principal); I13.2 Hypertensive heart and chronic kidney disease with heart failure and with stage 5 chronic kidney disease, or end stage renal disease; N18.6 End stage renal disease; I50.9 Heart failure, unspecified; Z99.2 Dependence on renal dialysis
CPT/HCPCS: 36415; 71045; 80048; 80076; 83735; 83880; 84484; 85025; 85610; 93005; 99285

== ENCOUNTER 2025-05-11 12:55 | Emergency (ER) | payer OTHER ==
--- NOTE | 2025-05-11 14:07 | RAD REPORT ---
EXAMINATION: Head C Spine Mpr Wo Con CLINICAL INDICATION: Male, 59 years old. PAIN TECHNIQUE: Axial CT images from the skull base to the vertex without intravenous contrast. Axial CT i mages through the cervical spine were obtained without intravenous contrast. Sagittal and coronal reformatted images were created from the data set. Coronal and sagittal reformatted images were creat ed from the data set. One or more of the following dose reduction techniques were used: Automated exposure control, adjustment of the mA and/or kV according to patient size, and/or iterative reconstr uction. Unless otherwise specified, incidental findings do not require dedicated imaging follow-up. [id number]. COMPARISON: 11/08/2023 FINDINGS: Head: INTRACRANIAL: No acute intracranial hemorrhage. No acute large vascular territory infarct. No hydroce phalus. Remote right thalamic infarct similar asymmetry of the lateral ventricles.. Mild chronic small vessel ischemic changes. VASCULATURE: No visualized abnormalities in the arteries or dural venous sinuses. SCALP/SKULL: No calvarial fracture identified. No acute soft tissue abnormality. SINUSES: The visualized paranasal sinuses are mostly clear. No significant mastoid fluid. Cervical spine: ALIGNMENT: The cervical spine has normal alignment without scoliosis or spondylolisthesis. BONE: Vertebral body heights are maintained. No aggressive osseous lesions. DEGENERATIVE: No significant focal degenerative changes. SOFT TISSUE: No significant abnormalities in the soft tissue of the neck. The visualized lung apices are clear. IMPRESSION: No acute intracranial abnormality. No acute fracture or traumatic malalignment of the cervical spine.
--- NOTE | 2025-05-11 14:36 | RAD REPORT ---
EXAMINATION: Sacrum And Coccyx VIEWS: Three views CLINICAL INDICATION: Male, 59 years old. PAIN COMPARISON: No prior exam. IMPRESSION: No definite fracture of the sacrum or coccyx identified. Given the range of normal anatomic variants of the sacrum and coccyx, if there is persistent clinical concern for a sacral or coccygeal fracture, CT could be considered.
--- NOTE | 2025-05-11 15:16 | EDPHYS ---
Physician Documentation [facility] Name: Ben Otto Age: 59 yrs Sex: Male : 1965 Arrival Date: 05/11/2025 Time: 12:55 Bed 9 Private MD: ED Physician Jaxson Alba HPI: 05/11 15:36 This 59 yrs old Male presents to ER via EMS with complaints of Fall Injury. kb 15:36 Patient is a 59-year-old male who presents for pain to [facility] after falling. States kb he was at dialysis and went to sit in the lobby, missed the chair and fell onto his buttocks. States he fell back and hit his head on the glass as well. Denies LOC.. Historical: - Allergies: 13:18 SHELLFISH; hb - Home Meds: 13:18 Metoprolol Tartrate Oral [Active]; hb - PMHx: 13:18 Congestive heart failure; CVA; left sided weakness; Dialysis; Hypertensive disorder; hb kidney disease; - Immunization history:: Adult Immunizations up to date. - Infectious Disease History:: Denies. - Social history:: Smoking status: Patient denies any tobacco usage or history of. ROS: 15:28 Constitutional: As per HPI kb Exam: 15:33 Constitutional: This is a well developed, well nourished patient who is awake, alert, kb and in no acute distress. ENT: Moist Mucous membranes Cardiovascular: Regular rate Respiratory: Respirations even and unlabored. No increased work of breathing. Talking in full sentences Abdomen/GI: Soft, non-tender. No distention Skin: Warm, dry with normal turgor. Normal color. MS/ Extremity: Pulses equal, no cyanosis. Neurovascular intact. Full, normal range of motion. Neuro: Awake and alert, GCS 15, oriented to person, place, time, and situation. 15:33 Head/face: Noted is no obvious of injury or deformity except tenderness, that is mild, of the left side of the back of head, 15:33 Neck: External neck: is normal, C-spine: vertebral tenderness, that is mild, appreciated at C6 and C7, 15:33 Back: pain, that is mild, of the sacrum, Vital Signs: 13:04 BP 126 / 79; Pulse 72; Resp 16; Temp 97.8; Pulse Ox 100% ; Weight 89.81 kg; Height 5 hb ft. 7 in. ; Pain 7/10; 15:29 BP 131 / 75; Pulse 78; Resp 18; Pulse Ox 100% ; bp 13:04 Body Mass Index 31.01 (89.81 kg, 170.18 cm) hb 13:04 Pain Scale: Adult hb MDM: 13:00 Medical Screening Exam initiated kb 15:28 Data reviewed: vital signs, nurses notes. kb 15:35 Differential diagnosis: closed head injury, contusion, fracture. Test considered but kb Not performed: CT: ct pelvis considered and discussed with pt but pt is able to ambulate and does not think it is broken. States he only came so "they" didn't get into trouble. Will follow up or return for continued pain. Historians other than the Patient: EMS: [facility]. Counseling: I had a detailed discussion with the patient and/or guardian regarding the historical points, exam findings, and any diagnostic results supporting the discharge/admit diagnosis, radiology results, the need for outpatient follow up, a family practitioner, to return to the emergency department if symptoms worsen or persist or if there are any questions or concerns that arise at home. 05/11 13:01 Order name: CT Head C Spine; Complete Time: 14:12 kb 05/11 13:01 Order name: Sacrum And Coccyx XRAY; Complete Time: 14:37 kb Administered Medications: No medications were administered Disposition: 16:02 I was immediately available on-site in the Emergency Department for consultation in the wy3 care of the patient. Disposition Summary: 05/11/25 15:16 Discharge Ordered Notes: Location: Home kb Condition: Stable kb Diagnosis - Fall on same level, unspecified kb - Unspecified injury of head, initial encounter kb - Low back pain - coccyx kb Followup: kb - With: Emergency Department - When: As needed - Reason: Worsening of condition Followup: kb - With: Private Physician - When: 2 - 3 days - Reason: Recheck today's complaints, Continuance of care, Re-evaluation by your physician Discharge Instructions: - Discharge Summary Sheet kb - Musculoskeletal Pain kb - Head Injury, Adult, [id number] kb Forms: - Medication Reconciliation Form kb - Antibiotic Education kb - Prescription Opioid Use kb - Patient Portal Instructions kb - Leadership Thank You Letter kb Signatures: Dispatcher [employer] EDMS Dorie Carrizales, DIETETIC TECH-C DIETETIC TECH-Ckb Danica Martínez, RN RN hb Jaxson Alba, DO DO ms3 Corrections: (The following items were deleted from the chart) 15:29 15:28 Constitutional: This is a well developed, well nourished patient who is awake, kb alert, and in no acute distress. Head/Face: Normocephalic, atraumatic. ENT: Moist Mucous membranes Cardiovascular: Regular rate Respiratory: Respirations even and unlabored. No increased work of breathing. Talking in full sentences Skin: Warm, dry with normal turgor. Normal color. Neuro: Awake and alert, GCS 15, oriented to person, place, time, and situation. kb 15:29 15:28 Musculoskeletal/extremity: Extremities: grossly normal except: noted in the right kb knee and right stephenson: pain, tenderness, ROM: limited passive range of motion due to pain, Circulation is intact in all extremities. Sensation intact. kb
--- NOTE | 2025-05-11 15:16 | ER ---
Nurse's Notes [facility] Name: Ben Otto Age: 59 yrs Sex: Male : 1965 Arrival Date: 05/11/2025 Time: 12:55 Bed 9 Private MD: Diagnosis: Fall on same level, unspecified;Unspecified injury of head, initial encounter;Low back pain-coccyx Presentation: 05/11 13:04 Chief complaint: EMS states: Missed chair and fell onto buttocks on tile floor, c/o low hb back pain that radiates to back of neck. 13:04 Method Of Arrival: EMS: [facility] hb 13:04 Coronavirus screen: At this time, the client does not indicate any symptoms associated hb with coronavirus-19. Ebola Screen: No symptoms or risks identified at this time. Initial Sepsis Screen: Does the patient meet any 2 criteria? No. Patient's initial sepsis screen is negative. Does the patient have a suspected source of infection? No. Patient's initial sepsis screen is negative. Risk Assessment: Do you want to hurt yourself or someone else? Patient reports no desire to harm self or others. Onset of symptoms was May 11, 2025. 13:04 Acuity: JEREMY 4 hb Triage Assessment: 13:05 General: Appears in no apparent distress. Behavior is cooperative, appropriate for age, bp anxious. Pain: Complains of pain in buttocks. EENT: No deficits noted. Neuro: No deficits noted. Cardiovascular: No deficits noted. Respiratory: No deficits noted. GI: No signs and/or symptoms were reported involving the gastrointestinal system. : No signs and/or symptoms were reported regarding the genitourinary system. Derm: No deficits noted. Musculoskeletal: No deficits noted. Historical: - Allergies: 13:18 SHELLFISH; hb - Home Meds: 13:18 Metoprolol Tartrate Oral [Active]; hb - PMHx: 13:18 Congestive heart failure; CVA; left sided weakness; Dialysis; Hypertensive disorder; hb kidney disease; - Immunization history:: Adult Immunizations up to date. - Infectious Disease History:: Denies. - Social history:: Smoking status: Patient denies any tobacco usage or history of. Screenin:43 [facility] ED Fall Risk Assessment (Adult) History of falling in the last 3 months, bp including since admission Yes- single mechanical fall (1 pt) Confusion or Disorientation No (0 pts) Intoxicated or Sedated No (0 pts) Impaired Gait No (0 pts) Mobility Assist Device Used No (0 pt) Altered Elimination No (0 pt) Score/Fall Risk Level 0 - 2 = Low Risk Oriented to surroundings. Abuse screen: Denies threats or abuse. Denies injuries from another. Nutritional screening: No deficits noted. Tuberculosis screening: No symptoms or risk factors identified. Assessment: 13:43 General: SEE TRIAGE NTOE. bp Vital Signs: 13:04 BP 126 / 79; Pulse 72; Resp 16; Temp 97.8; Pulse Ox 100% ; Weight 89.81 kg; Height 5 hb ft. 7 in. ; Pain 7/10; 15:29 BP 131 / 75; Pulse 78; Resp 18; Pulse Ox 100% ; bp 13:04 Body Mass Index 31.01 (89.81 kg, 170.18 cm) hb 13:04 Pain Scale: Adult hb ED Course: 12:59 Patient arrived in ED. hb 13:00 Dorie Carrizales FNP-C is PHCP. kb 13:00 Jaxson Alba DO is Attending Physician. kb 13:18 Triage completed. hb 13:19 Arm band placed on. hb 13:20 CT Head C Spine In Process Unspecified. EDMS 13:42 Garth Lindquist, RN is Primary Nurse. bp 13:43 Patient has correct armband on for positive identification. bp 13:51 Sacrum And Coccyx XRAY In Process Unspecified. EDMS 15:30 No provider procedures requiring assistance completed. Patient did not have IV access bp during this emergency room visit. Administered Medications: No medications were administered Medication: 13:43 VIS not applicable for this client. bp Outcome: 15:16 Discharge ordered by . kb 15:30 Discharged to home ambulatory, bp 15:30 Condition: stable 15:30 Discharge instructions given to patient, Instructed on discharge instructions, follow up and referral plans. Demonstrated understanding of instructions, follow-up care, 15:30 Patient left the ED. bp Signatures: Dispatcher [employer] EDMS Dorie Carrizales FNP-C FNP-Ckb Baxter, Heather, RN RN Garth Lindquist, JOBY RN bp
[2025-05-11 15:41] VITALS: TEMP 97.8; O2SAT 100
[2025-05-11 15:43] VITALS: BP 131/75
== END 2025-05-11 15:30 | disposition home or self-care (01) ==
LOC: ER 12:55
DX: S09.90XA Unspecified injury of head, initial encounter (principal); M54.50 Low back pain, unspecified; W18.30XA Fall on same level, unspecified, initial encounter; I13.2 Hypertensive heart and chronic kidney disease with heart failure and with stage 5 chronic kidney disease, or end stage renal disease; N18.6 End stage renal disease; I50.9 Heart failure, unspecified; Z99.2 Dependence on renal dialysis
CPT/HCPCS: 70450; 72125; 72220; 99283

== ENCOUNTER 2025-07-10 09:05 | Emergency (ER) | payer OTHER ==
--- NOTE | 2025-07-10 10:37 | RAD REPORT ---
EXAMINATION: XR RIGHT HIP CLINICAL INDICATION: . PAIN RIGHT TECHNIQUE: Multiple views of the right hip were obtained. COMPARISON: No prior exam. FINDINGS: Mild osteoarthritis of the right hip. No acute fracture, dislocation or AVN pattern observe d.
--- NOTE | 2025-07-10 10:38 | RAD REPORT ---
EXAMINATION: XR RIGHT KNEE CLINICAL INDICATION: Male, 59 years old. PAIN TECHNIQUE: Multiple views of the right knee were obtained. COMPARISON: No prior exam. FINDINGS: Somewhat widened appearance of the distal femoral metaphysis may be related to previous tra jose or a sessile osteochondroma. Mild to moderate tricompartmental arthritic changes. Small amount of suprapatellar joint fluid. No fracture or dislocation suspected.
--- NOTE | 2025-07-10 10:38 | RAD REPORT ---
EXAMINATION: XR RIGHT TIBIA AND FIBULA CLINICAL INDICATION: PAIN TECHNIQUE:Two view radiograph of the right tibia and fibula were obtained. COMPARISON: No prior exam. FINDINGS: Prominent ankle degenerative changes are present. Small calcaneal spurs. No acute fracture or dislocation evident.
--- NOTE | 2025-07-10 11:13 | ER ---
Nurse's Notes [facility] Name: Ben Otto Age: 59 yrs Sex: Male : 1965 Arrival Date: 07/10/2025 Time: 09:05 Bed 14 Private MD: Diagnosis: Contusion of right knee Presentation: 07/10 09:14 Chief complaint: EMS states: Pt reports falling last night. We ran an EMS call then, he jb4 was refusing at this time. Today he reports his right knee is a 9/10 pain, denies LOC or hitting his head. Coronavirus screen: At this time, the client does not indicate any symptoms associated with coronavirus-19. Ebola Screen: No symptoms or risks identified at this time. Initial Sepsis Screen: Does the patient meet any 2 criteria? No. Patient's initial sepsis screen is negative. Does the patient have a suspected source of infection? No. Patient's initial sepsis screen is negative. Risk Assessment: Do you want to hurt yourself or someone else? Patient reports no desire to harm self or others. Onset of symptoms was July 10, 2025. Transition of care: patient was not received from another setting of care. 09:14 Method Of Arrival: EMS: [facility] jb4 09:14 Acuity: JEREMY 4 jb4 Historical: - Allergies: 09:19 SHELLFISH; jb4 - Home Meds: 09:19 Metoprolol Tartrate Oral [Active]; jb4 - PMHx: 09:19 Dialysis; Congestive heart failure; CVA; left sided weakness; Hypertensive disorder; jb4 kidney disease; - Family history:: not pertinent. - Hospitalizations: : No recent hospitalization is reported. Screenin:20 [facility] ED Fall Risk Assessment (Adult) History of falling in the last 3 months, jb4 including since admission No falls in past 3 months (0 pts) Confusion or Disorientation No (0 pts) Intoxicated or Sedated No (0 pts) Impaired Gait No (0 pts) Mobility Assist Device Used No (0 pt) Altered Elimination No (0 pt) Score/Fall Risk Level 0 - 2 = Low Risk Oriented to surroundings, Maintained a safe environment. Abuse screen: Denies threats or abuse. Nutritional screening: No deficits noted. Tuberculosis screening: No symptoms or risk factors identified. Assessment: 09:20 General: Appears in no apparent distress. comfortable, Behavior is calm, cooperative, jb4 appropriate for age. Pain: Complains of pain in right knee Pain does not radiate. Pain currently is 9 out of 10 on a pain scale. Neuro: Level of Consciousness is awake, alert, obeys commands, Oriented to person, place, time, situation. Cardiovascular: Patient's skin is warm and dry. Respiratory: Airway is patent Respiratory effort is even, unlabored, Respiratory pattern is regular, symmetrical. Derm: Skin is intact, Skin is pink, warm \T\ dry. Musculoskeletal: Circulation, motion, and sensation intact. Range of motion: intact in all extremities. 10:27 Reassessment: Patient appears in no apparent distress at this time. Patient and/or jb4 family updated on plan of care and expected duration. Pain level reassessed. Patient is alert, oriented x 3, equal unlabored respirations, skin warm/dry/pink. 11:33 Reassessment: Patient appears in no apparent distress at this time. Patient and/or jb4 family updated on plan of care and expected duration. Pain level reassessed. Patient is alert, oriented x 3, equal unlabored respirations, skin warm/dry/pink. Vital Signs: 09:14 BP 104 / 64; Pulse 58; Resp 16; Temp 97.2; Pulse Ox 99% on R/A; Weight 90.72 kg (R); jb4 Height 5 ft. 7 in. ; Pain 9/10; 10:28 BP 102 / 65; Pulse 89; Resp 16; Pulse Ox 97% on R/A; jb4 11:15 BP 105 / 74; Pulse 54; Resp 16; Pulse Ox 100% on R/A; jb4 09:14 Body Mass Index 31.32 (90.72 kg, 170.18 cm) jb4 09:14 Pain Scale: Adult jb4 ED Course: 09:06 Patient arrived in ED. eb 09:06 John Fuller MD is Attending Physician. rn 09:10 Justin Rios, JOBY is Primary Nurse. jb4 09:19 Triage completed. jb4 09:19 Arm band placed on right wrist. jb4 09:20 Patient has correct armband on for positive identification. Bed in low position. Call jb4 light in reach. Side rails up X 1. Provided Education on: plan of care. 10:27 XRAY Knee RIGHT 3 view In Process Unspecified. EDMS 10:28 XRAY Tib Fib RIGHT In Process Unspecified. EDMS 10:28 XRAY Hip RIGHT 2 view In Process Unspecified. EDMS 11:37 No provider procedures requiring assistance completed. Patient did not have IV access jb4 during this emergency room visit. Administered Medications: No medications were administered Medication: 09:20 VIS not applicable for this client. jb4 Outcome: 11:13 Discharge ordered by . rn 11:37 Discharged to home via wheelchair, with family, oleksandr 11:37 Condition: stable 11:37 Discharge instructions given to patient, Instructed on discharge instructions, follow up and referral plans. Demonstrated understanding of instructions, follow-up care, 11:38 Patient left the ED. jb4 Signatures: Dispatcher [employer] John Chopra MD MD rn Bryson, James, RN RN jb4 Botello, Elizabeth eb
--- NOTE | 2025-07-10 11:13 | EDPHYS ---
Physician Documentation [facility] Name: Ben Otto Age: 59 yrs Sex: Male : 1965 Arrival Date: 07/10/2025 Time: 09:05 Bed 14 Private MD: ED Physician John Fuller HPI: 07/10 09:09 This 59 yrs old Male presents to ER via Unassigned with complaints of knee rn injury and pain. 09:09 Patient reports right knee injury and pain. Tripped yesterday and fell onto right knee. rn Denies any other injury. Reports pain at knee and just below knee. Also reports mild right hip pain. Was ambulatory after the fall and did not want to be seen but roommate called 911 today due to increased pain upon waking up. No head injury or neck injury. No back injury or pain. No rib injury or pain. No abdominal pain.. Historical: - Allergies: 09:19 SHELLFISH; jb4 - Home Meds: 09:19 Metoprolol Tartrate Oral [Active]; jb4 - PMHx: 09:19 Dialysis; Congestive heart failure; CVA; left sided weakness; Hypertensive disorder; jb4 kidney disease; - Family history:: not pertinent. - Hospitalizations: : No recent hospitalization is reported. ROS: 09:09 Constitutional: Negative for fever, chills, and weight loss, Neck: Negative for injury, rn pain, and swelling, Cardiovascular: Negative for chest pain, palpitations, and edema, Respiratory: Negative for shortness of breath, cough, wheezing, and pleuritic chest pain, Abdomen/GI: Negative for abdominal pain, nausea, vomiting, diarrhea, and constipation, Back: Negative for injury and pain, MS/Extremity: Positive for right knee pain Skin: Negative for injury, rash, and discoloration, Neuro: Negative for headache, weakness, numbness, tingling, and seizure, Exam: 09:09 Constitutional: This is a well developed, well nourished patient who is awake, alert, rn and in no acute distress. Cardiovascular: Regular rate and rhythm. No pulse deficits. MS/ Extremity: Right knee pain with abrasion just inferior to patella. No laceration. No significant effusion. Painless range of motion until about 50% flexion of knee. Mild painful range of motion right hip. No ankle or foot tenderness or deformity. Neuro: Awake and alert, GCS 15 Vital Signs: 09:14 BP 104 / 64; Pulse 58; Resp 16; Temp 97.2; Pulse Ox 99% on R/A; Weight 90.72 kg (R); jb4 Height 5 ft. 7 in. ; Pain 9/10; 10:28 BP 102 / 65; Pulse 89; Resp 16; Pulse Ox 97% on R/A; jb4 11:15 BP 105 / 74; Pulse 54; Resp 16; Pulse Ox 100% on R/A; jb4 09:14 Body Mass Index 31.32 (90.72 kg, 170.18 cm) jb4 09:14 Pain Scale: Adult jb4 MDM: 09:06 Medical Screening Exam initiated rn 11:12 Differential diagnosis: closed fracture, contusion. Data reviewed: vital signs, nurses rn notes, radiologic studies, plain films, and as a result, I will discharge patient. Independent interpretation of the following test(s) in the Emergency Department X-Ray: My interpretation is X-ray images right knee negative for acute fracture or dislocation per my interpretation. X-ray right hip images negative for acute fracture or dislocation per my interpretation. Counseling: I had a detailed discussion with the patient and/or guardian regarding the historical points, exam findings, and any diagnostic results supporting the discharge/admit diagnosis, radiology results, the need for outpatient follow up, to return to the emergency department if symptoms worsen or persist or if there are any questions or concerns that arise at home. Special discussion: I discussed with the patient/guardian in detail that at this point there is no indication for admission to the hospital. It is understood, however, that if the symptoms persist or worsen the patient needs to return immediately for re-evaluation. Based on the history and exam findings, there is no indication for further emergent testing or inpatient evaluation. I discussed with the patient/guardian the need to see the primary care provider for further evaluation of the symptoms. 07/10 09:07 Order name: XRAY Knee RIGHT 3 view; Complete Time: 10:50 rn 07/10 09:07 Order name: XRAY Tib Fib RIGHT; Complete Time: 10:50 rn 07/10 09:07 Order name: XRAY Hip RIGHT 2 view; Complete Time: 10:50 rn Administered Medications: No medications were administered Disposition Summary: 07/10/25 11:13 Discharge Ordered Notes: Location: Home rn Problem: new rn Symptoms: have improved rn Condition: Stable rn Diagnosis - Contusion of right knee rn Followup: rn - With: Private Physician - When: As needed - Reason: Recheck today's complaints, Re-evaluation by your physician Discharge Instructions: - Discharge Summary Sheet rn - Contusion rn Forms: - Medication Reconciliation Form rn - Antibiotic yarn conditioner - Prescription Opioid Use rn - Patient Portal Instructions rn - Leadership Thank You Letter rn Signatures: Dispatcher [employer] EDMS John Fuller MD MD rn Bryson, James, RN RN jb4 Corrections: (The following items were deleted from the chart) 09:07 09:07 Knee Right 3 View+RAD.RAD.BRZ ordered. EDMS EDMS 09:07 09:07 Tib Fib Right+RAD.RAD.BRZ ordered. EDMS EDMS 09:07 09:07 Hip Right 2 View+RAD.RAD.BRZ ordered. EDMS EDMS
[2025-07-10 17:32] VITALS: TEMP 97.2
[2025-07-10 17:33] VITALS: BP 105/74; O2SAT 100
== END 2025-07-10 11:38 | disposition home or self-care (01) ==
LOC: ER 09:05
DX: S80.01XA Contusion of right knee, initial encounter (principal)
CPT/HCPCS: 99283

== ENCOUNTER 2025-07-16 14:08 | Emergency (ER) | payer OTHER ==
--- NOTE | 2025-07-16 15:57 | RAD REPORT ---
EXAMINATION: XR LEFT TIBIA AND FIBULA CLINICAL INDICATION: . PAIN TECHNIQUE:Two view radiograph of the left tibia and fibula were obtained. COMPARISON: No prior exam. FINDINGS: Significant medial compartment space narrowing is present suggesting osteoarthritis. Mild s oft tissue swelling is seen along the lateral aspect of the leg. No acute fracture or dislocation is seen. Moderate calcaneal spurs.
--- NOTE | 2025-07-16 15:58 | RAD REPORT ---
EXAMINATION: XR RIGHT TIBIA AND FIBULA CLINICAL INDICATION: PAIN TECHNIQUE:Two view radiograph of the right tibia and fibula were obtained. COMPARISON: No prior exam. FINDINGS: Mild arthritic changes involve the right knee. No acute fracture or dislocation seen. Advan shanta degenerative change involves the tibiotalar articulation. Small / moderate calcaneal spurs. Moderate soft tissue swelling about the ankle.
--- NOTE | 2025-07-16 15:59 | ER ---
Nurse's Notes [facility] Name: Ben Otto Age: 60 yrs Sex: Male : 1965 Arrival Date: 07/16/2025 Time: 14:08 Bed 7 Private MD: Diagnosis: Pain in right lower leg;Pain in left lower leg Presentation: 07/16 14:12 Chief complaint: EMS states: toned out for bilateral leg pain. s/p fall one week ago. me1 Coronavirus screen: At this time, the client does not indicate any symptoms associated with coronavirus-19. Ebola Screen: No symptoms or risks identified at this time. Initial Sepsis Screen: Does the patient meet any 2 criteria? No. Patient's initial sepsis screen is negative. Does the patient have a suspected source of infection? No. Patient's initial sepsis screen is negative. Risk Assessment: Do you want to hurt yourself or someone else? Patient reports no desire to harm self or others. Onset of symptoms is unknown. 14:12 Method Of Arrival: [place] [facility] [place]:12 Acuity: JEREMY 3 me1 Historical: - Allergies: 14:13 SHELLFISH; me1 - PMHx: 14:13 Congestive heart failure; CVA; left sided weakness; Dialysis; Hypertensive disorder; me1 kidney disease; - Immunization history:: Adult Immunizations unknown. - Infectious Disease History:: Denies. - Social history:: Smoking status: unknown. Screenin:46 Abuse screen: Denies threats or abuse. Nutritional screening: No deficits noted. ap3 Tuberculosis screening: No symptoms or risk factors identified. 16:08 [facility] ED Fall Risk Assessment (Adult) History of falling in the last 3 months, ap3 including since admission No falls in past 3 months (0 pts) Confusion or Disorientation No (0 pts) Intoxicated or Sedated No (0 pts) Impaired Gait No (0 pts) Mobility Assist Device Used Yes (1 pt) Altered Elimination No (0 pt) Score/Fall Risk Level 0 - 2 = Low Risk Oriented to surroundings, Maintained a safe environment, Educated pt \T\ family on fall prevention, incl call for assistance when getting out of bed, Assessed \T\ reinforced patient's understanding of fall precautions, Hourly rounding (assess needs \T\ fall precautionary measures) done, Used ambulatory aids as needed (educated on \T\ assisted with). Assessment: 15:46 General: Appears in no apparent distress. Behavior is calm, cooperative, appropriate ap3 for age. Pain: Complains of pain in right leg and left leg. Neuro: Level of Consciousness is awake, alert, obeys commands, Oriented to person, place, time, situation, Appropriate for age. Cardiovascular: Patient's skin is warm and dry. Respiratory: Airway is patent Respiratory effort is even, unlabored, Respiratory pattern is regular, symmetrical. Vital Signs: 14:12 BP 101 / 69; Pulse 68; Resp 16; Temp 98.4; Pulse Ox 95% ; me1 15:47 BP 120 / 81; Pulse 84; Resp 17; Pulse Ox 100% on R/A; ap3 16:07 BP 129 / 73; Pulse 60; Resp 18; Pulse Ox 100% on R/A; ap3 ED Course: 14:11 Patient arrived in ED. me1 14:13 Triage completed. me1 14:13 Arm band placed on Patient placed in waiting room. me1 14:14 Carolyn Castillo PA-C is PHCP. sb4 14:14 Manuel De La Cruz MD is Attending Physician. sb4 15:41 Myrna Weathers, RN is Primary Nurse. ap3 15:46 Patient has correct armband on for positive identification. Bed in low position. Call ap3 light in reach. Side rails up X 1. Provided Education on: fall risk, call light useage. Pulse ox on. NIBP on. Door closed. Noise minimized. 15:49 Tib Fib Left XRAY In Process Unspecified. EDMS 15:49 Tib Fib Right XRAY In Process Unspecified. EDMS 16:08 No provider procedures requiring assistance completed. Patient did not have IV access ap3 during this emergency room visit. Administered Medications: No medications were administered Medication: 16:08 VIS not applicable for this client. ap3 Outcome: 15:59 Discharge ordered by . sb4 16:08 Condition: good ap3 16:13 Discharged to lobby to wait for bus ap3 16:13 Discharge instructions given to patient, Instructed on discharge instructions, follow up and referral plans. Demonstrated understanding of instructions, follow-up care, 16:14 Patient left the ED. ap3 Signatures: Dispatcher [employer] EDTN Myrna Weathers, RN RN ap3 Carolyn Castillo, PA-C PA-C sb4 Rosanne German, RN RN me1
--- NOTE | 2025-07-16 15:59 | EDPHYS ---
Physician Documentation [facility] Name: Ben Otto Age: 60 yrs Sex: Male : 1965 Arrival Date: 07/16/2025 Time: 14:08 Bed 7 Private MD: ED Physician Manuel De La Cruz HPI: 07/16 14:14 This 60 yrs old Male presents to ER via EMS with complaints of Leg Pain. sb4 14:14 Patient reports bilateral stephenson pain upon waking this morning. Denies any injury. States sb4 he took ibuprofen without significant relief. Is able to ambulate. No other complaints at this time. Historical: - Allergies: 14:13 SHELLFISH; me1 - PMHx: 14:13 Congestive heart failure; CVA; left sided weakness; Dialysis; Hypertensive disorder; me1 kidney disease; - Immunization history:: Adult Immunizations unknown. - Infectious Disease History:: Denies. - Social history:: Smoking status: unknown. ROS: 14:14 Constitutional: Negative for fever, chills, and weight loss, sb4 14:14 MS/extremity: Positive for pain, of the right leg and left leg, 14:14 All other systems are negative, Exam: 14:14 Constitutional: This is a well developed, well nourished patient who is awake, alert, sb4 and in no acute distress. Head/Face: Normocephalic, atraumatic. Eyes: Extra-ocular motions intact. Periorbital areas with no swelling, redness, or edema. ENT: Mucous membranes moist. Respiratory: No increased work of breathing, no retractions or nasal flaring. Skin: Warm, dry with normal turgor. Normal color with no rashes, no lesions, and no evidence of cellulitis. MS/ Extremity: Pulses equal, no cyanosis. Neurovascular intact. Full, normal range of motion. Vital Signs: 14:12 BP 101 / 69; Pulse 68; Resp 16; Temp 98.4; Pulse Ox 95% ; me1 15:47 BP 120 / 81; Pulse 84; Resp 17; Pulse Ox 100% on R/A; ap3 16:07 BP 129 / 73; Pulse 60; Resp 18; Pulse Ox 100% on R/A; ap3 MDM: 14:14 Medical Screening Exam initiated sb4 14:14 Differential diagnosis: contusion, tendonitis. Differential diagnosis: stress fracture. sb4 15:59 Data reviewed: vital signs, nurses notes, EMS record, radiologic studies, and as a sb4 result, I will discharge patient. Counseling: I had a detailed discussion with the patient and/or guardian regarding the historical points, exam findings, and any diagnostic results supporting the discharge/admit diagnosis, radiology results, the need for outpatient follow up, for definitive care, to return to the emergency department if symptoms worsen or persist or if there are any questions or concerns that arise at home. 07/16 14:14 Order name: Tib Fib Left XRAY; Complete Time: 15:58 sb4 07/16 14:14 Order name: Tib Fib Right XRAY; Complete Time: 15:58 sb4 Administered Medications: No medications were administered Disposition Summary: 07/16/25 15:59 Discharge Ordered Notes: Location: Home sb4 Problem: new sb4 Symptoms: are unchanged sb4 Condition: Stable sb4 Diagnosis - Pain in right lower leg sb4 - Pain in left lower leg sb4 Followup: sb4 - With: Private Physician - When: As needed - Reason: Recheck today's complaints, Re-evaluation by your physician Discharge Instructions: - Discharge Summary Sheet sb4 - Musculoskeletal Pain sb4 - Pain Without a Known Cause sb4 Forms: - Patient Portal Instructions sb4 - Leadership Thank You Letter sb4 Signatures: Dispatcher [employer] Myrna Cortes, RN RN ap3 Carolyn Castillo PACyn PACyn sb4 Rosanne German RN RN me1 Corrections: (The following items were deleted from the chart) 14:14 14:14 Tib Fib Right+RAD.RAD.BRZ ordered. VIKTORIA BLUM
[2025-07-16 19:58] VITALS: TEMP 98.4
[2025-07-16 19:59] VITALS: O2SAT 100
[2025-07-16 20:00] VITALS: BP 129/73
== END 2025-07-16 16:14 | disposition home or self-care (01) ==
LOC: ER 14:08
DX: M79.662 Pain in left lower leg (principal); M79.661 Pain in right lower leg
CPT/HCPCS: 99283